=== PATIENT | male | born 1965 | race American Indian/Alaskan Native ===

== ENCOUNTER 2018-05-13 04:04 | Inpatient (IN) | payer OTHER ==
[2018-05-13] MEDS ORDERED: NACL 0.9% 1000 ML 1,000 ML IV ONE (04:11)
[2018-05-13 04:44] LABS: Basophils % (Auto) 0.6 % (0.0-1.8); Eosinophils # (Auto) 0.1 K/mm3 (0.0-0.4); Eosinophils % (Auto) 1.3 % (0.0-4.3); Hematocrit 26.8 % (35.5-45.6); Hemoglobin 9.4 gm/dl (11.8-15.2); Lymphocytes # (Auto) 1.9 K/mm3 (1.2-5.4); Lymphocytes % (Auto) 24.2 % (13.4-35.0); Mean Corpuscular HGB Conc 35 % (32-34); Mean Corpuscular Hemoglobin 30 pg (28-32); Mean Corpuscular Volume 86 fl (84-94); Monocytes # (Auto) 0.7 K/mm3 (0.0-0.8); Monocytes % (Auto) 9.6 % (0.0-7.3); Platelet Count 363 K/mm3 (140-440); Red Blood Count 3.13 M/mm3 (3.65-5.03); Red Cell Distribution Width 13.4 % (13.2-15.2)
[2018-05-13 05:05] LABS: Alanine Aminotransferase 10 units/L (7-56); Albumin 2.8 g/dL (3.9-5); BUN/Creatinine Ratio 5; Blood Urea Nitrogen 72 mg/dL (9-20); Calcium 8.6 mg/dL (8.4-10.2); Hemolysis Index 0
[2018-05-13] MEDS ORDERED: CATAPRES ONE (07:56)
[2018-05-13] MEDS ORDERED: CATAPRES PO ONE (07:57)
[2018-05-13] MEDS ORDERED: KIONEX PO ONE (09:19)
--- NOTE | 2018-05-13 10:30 | Emergency Department Report ---
ED Extremity Problem HPI - General Chief complaint: Abdominal Pain Stated complaint: ABD PAIN/SWELLING LEFT LEG Time Seen by Provider: 05/13/18 09:10 Source: patient Mode of arrival: Ambulatory Limitations: No Limitations - History of Present Illness Initial comments: Patient is a 52-year-old male who has had no previous medical history to his knowledge she was complaining of leg swelling for approximately 2 weeks. Patient states left slightly greater than right. Patient also has had some fatigue nausea and some generalized abdominal crampiness. Patient states that he has not urinated in several days as well. Patient denies any nausea vomiting or diarrhea fevers or chills at this time. Severity scale (0 -10): 10 - Related Data Previous Rx's Medication Instructions Recorded Last Taken Type Ofloxacin 0.3% [Ocuflox] 1 drops OP QID #1 bottle 10/31/16 Unknown Rx Allergies Allergy/AdvReac Type Severity Reaction Status Date / Time No Known Allergies Allergy Verified 10/31/16 11:50 ED Review of Systems ROS: Stated complaint: ABD PAIN/SWELLING LEFT LEG Other details as noted in HPI Comment: All other systems reviewed and negative ED Past Medical Hx - Past Medical History Previous Medical History?: No - Surgical History Past Surgical History?: No - Social History Smoking Status: Current Every Day Smoker Substance Use Type: None - Medications Home Medications: Home Medications Medication Instructions Recorded Confirmed Last Taken Type Ofloxacin 0.3% [Ocuflox] 1 drops OP QID #1 bottle 10/31/16 Unknown Rx ED Physical Exam - General Limitations: No Limitations General appearance: alert, in no apparent distress - Head Head exam: Present: atraumatic, normocephalic - Eye Eye exam: Present: normal appearance - ENT ENT exam: Present: mucous membranes moist - Neck Neck exam: Present: normal inspection - Respiratory Respiratory exam: Present: normal lung sounds bilaterally. Absent: respiratory distress, wheezes, rales, rhonchi - Cardiovascular Cardiovascular Exam: Present: regular rate, normal rhythm. Absent: systolic murmur, diastolic murmur, rubs, gallop - GI/Abdominal GI/Abdominal exam: Present: soft, normal bowel sounds. Absent: distended, tenderness, guarding, rebound - Rectal Rectal exam: Present: deferred - exam: Absent: normal inspection (patient has some generalized edema to the penis and scrotum) - Extremities Exam Extremities exam: Present: other (patient has 2+ edema bilateral lower extremities). Absent: normal inspection - Back Exam Back exam: Present: normal inspection - Neurological Exam Neurological exam: Present: alert, oriented X3 - Psychiatric Psychiatric exam: Present: normal affect, normal mood - Skin Skin exam: Present: warm, dry, intact, normal color. Absent: rash ED Course Vital Signs 05/13/18 05/13/18 04:09 07:32 Temperature 97.8 F 97.7 F Pulse Rate 99 H 91 H Respiratory 16 15 Rate Blood Pressure 198/120 194/128 O2 Sat by Pulse 98 98 Oximetry ED Medical Decision Making - Lab Data Result diagrams: 05/13/18 04:27 05/13/18 04:27 Labs 05/13/18 05/13/18 04:27 04:27 WBC 7.8 RBC 3.13 L Hgb 9.4 L Hct 26.8 L MCV 86 MCH 30 MCHC 35 H RDW 13.4 Plt Count 363 Lymph % (Auto) 24.2 [place] % (Auto) 9.6 H Eos % (Auto) 1.3 Baso % (Auto) 0.6 Lymph # 1.9 [place] # 0.7 Eos # 0.1 Baso # 0.0 Seg Neutrophils % 64.3 Seg Neutrophils # 5.0 Sodium 132 L Potassium 5.5 H Chloride 94.1 L Carbon Dioxide 19 L Anion Gap 24 BUN 72 H Creatinine 14.4 H Estimated GFR 4 BUN/Creatinine Ratio 5 Glucose 94 Calcium 8.6 Total Bilirubin < 0.20 AST 15 ALT 10 Alkaline Phosphatase 80 Total Protein 8.1 Albumin 2.8 L Albumin/Globulin Ratio 0.5 - Medical Decision Making Patient's laboratory studies are significant for elevation of his BUN and creatinine with a GFR 4. Patient has no previous history of renal failure. Patient's potassium slightly elevated 5.5. Patient blood pressure on arrival 194/128. Patient given Catapres to decrease the blood pressure. Patient will be admitted at this time for acute renal failure with elevated blood pressure. Critical Care Time: Yes (30) Critical care attestation.: If time is entered above; I have spent that time in minutes in the direct care of this critically ill patient, excluding procedure time. ED Disposition Clinical Impression: Hypertensive urgency, malignant Acute renal failure Qualifiers: Acute renal failure type: unspecified Qualified Code(s): N17.9 - Acute kidney failure, unspecified Edema Qualifiers: Edema type: unspecified Qualified Code(s): R60.9 - Edema, unspecified Disposition: DC-09 OP ADMIT IP TO THIS HOSP Is pt being admited?: Yes Condition: Poor Referrals: PRIMARY CARE,MD [Primary Care Provider] - 3-5 Days Time of Disposition: 10:36
[2018-05-13] MEDS ORDERED: APRESOLINE IV ONE (10:31)
[2018-05-13] MEDS ORDERED: NORMODYNE IV ONE ×2 (11:25→11:42)
--- NOTE | 2018-05-13 11:54 | History and Physical Report ---
History of Present Illness Date of examination: 05/13/18 Date of admission: 05/13/18 10:36 Chief complaint: Swelling of legs x 1 week. Shortness of breath No urine for 5 days History of present illness: Patient is 52 yo presented with bilateral leg swelling for 1 week, shortness of breath, abdominal cramps and states he has not passed urine in about 5 days. He denies chest pain. Shortness of breath worse on exertion. he does not have a Primary Care Physician, and is not on any medications. He was evaluated in ED, found to have creatinine of 14.4 He is diagnosed with acute kidney injury, hyperkalemia, hypertensive urgency. Patient started on antihypertensives. He was given Insulin and kayexalate for Hyperkalemia and will be admitted for further management. Past History Past Medical History: No medical history Past Surgical History: No surgical history Social history: single, Lives alone, smoking (Smokes 1 pack cigarettes daily), full code, other (Alcohol once to twice a week) Family history: no significant family history Medications and Allergies Allergies Allergy/AdvReac Type Severity Reaction Status Date / Time No Known Allergies Allergy Verified 10/31/16 11:50 Home Medications Medication Instructions Recorded Confirmed Last Taken Type No Known Home Medications [No 05/13/18 05/13/18 Unknown History Reported Home Medications] Review of Systems All systems: negative (No fever, no cough, No headache. All other systems reviewed and are negative) Exam - Physical Exam Narrative exam: GEN:Not in acute distress, HEENT: Normocephalic, atraumatic, Neck: supple, No JVD Lungs:Clear to auscultation bilaterally, no crackles, no wheeze Heart:S1 and S2 reg, no murmurs, rubs or gallop Abd:soft, mild tender lower abd, non-distended, Normal bowel sounds Ext:Bilateral lower ext edema, no cyanosis Neuro:AAO x 3, No focal neurological signs - Constitutional Vitals: Temp Pulse Resp BP Pulse Ox 97.7 F 78 16 185/105 98 05/13/18 07:32 05/13/18 11:31 05/13/18 11:25 05/13/18 11:31 05/13/18 11:25 Results - Labs CBC & Chem 7: 05/13/18 04:27 05/14/18 05:05 Labs: Abnormal lab results 05/13/18 05/13/18 Range/Units 04:27 04:27 RBC 3.13 L (3.65-5.03) M/mm3 Hgb 9.4 L (11.8-15.2) gm/dl Hct 26.8 L (35.5-45.6) % MCHC 35 H (32-34) % [place] % (Auto) 9.6 H (0.0-7.3) % Sodium 132 L (137-145) mmol/L Potassium 5.5 H (3.6-5.0) mmol/L Chloride 94.1 L (98-107) mmol/L Carbon Dioxide 19 L (22-30) mmol/L BUN 72 H (9-20) mg/dL Creatinine 14.4 H (0.8-1.5) mg/dL Albumin 2.8 L (3.9-5) g/dL Assessment and Plan Acute kidney injury. Etiology unclear New diagnosis Admit to Med/surg floor No history of renal disease Consult Nephrology [employer] Get Ultrasound Kidneys, UA, Urine Creat, urine lytes Strict I/O Hypertensive urgency, Start Norvasc and Hydralazine. Hydralazine iv prn Hyperkalemia. Give Insulin, kayexalate and recheck Hyponatremia. Repeat. Metabolic acidosis due to MARYLOU Full code status
[2018-05-13] MEDS ORDERED: NORVASC PO SCH (12:00)
[2018-05-13] MEDS ORDERED: HumuLIN R IV ONE (12:00)
[2018-05-13] MEDS ORDERED: D50W (25GM) Vial IV STA (12:00)
--- NOTE | 2018-05-13 13:09 | Consultation ---
History of Present Illness - Reason for Consult Consult date: 05/13/18 acute renal failure, hyperkalemia - History of Present Illness The patient is a 52 YO AAM with medical history significant for Uncontrolled HTN who came to the ER for evaluation of bilateral leg swelling, SOB and no urine output. He developed lower abdominal pain about 3 weeks ago, which was sharp, intermittent and not radiating. He noticed bilateral leg swelling about a week ago. He stopped making urine for the past 5 days. Patient also reports fatigue and RIVERA. Usually he takes Aleve every other day but he has been taking it everyday for the past week. Denies any fever, chills, rash, dysuria, hematuria, abdominal distention, N, V, D, dizziness, cp, cough, jaundice, weakness, muscle cramps, syncope or confusion. His creatinine is 14.4, K 5.5 and bicarb 19. He was seen in the ER last year and his BP was around 170/110. He is not taking any meds on a regular basis and has not seen a physician except ER visit last year. Past History Past Medical History: No medical history, hypertension Past Surgical History: No surgical history Social history: single, Lives alone, smoking (Smokes 1 pack cigarettes daily), full code, other (Alcohol once to twice a week) Family history: no significant family history Medications and Allergies Allergies Allergy/AdvReac Type Severity Reaction Status Date / Time No Known Allergies Allergy Verified 10/31/16 11:50 Home Medications Medication Instructions Recorded Confirmed Last Taken Type No Known Home Medications [No 05/13/18 05/13/18 Unknown History Reported Home Medications] Active Meds: Active Medications Amlodipine Besylate (Norvasc) 5 mg PO QDAY [facility] Last Admin: 05/13/18 12:54 Dose: 5 mg Hydralazine HCl (Apresoline) 50 mg PO Q8HR [facility] Hydralazine HCl (Apresoline) 20 mg IV Q4HR PRN PRN Reason: For SBP>170 or DBP>110 Review of Systems Constitutional: weight gain, fatigue, no weight loss, no fever, no chills, no anorexia, no weakness, no poor appetite Cardiovascular: edema, shortness of breath, dyspnea on exertion, high blood pressure, leg edema, decreased exercise tolerance, no chest pain, no orthopnea, no palpitations, no syncope, no lightheadedness Respiratory: shortness of breath, dyspnea on exertion, no cough, no hemoptysis Gastrointestinal: abdominal pain, no nausea, no vomiting, no diarrhea, no melena Genitourinary Male: other (not urinating), no dysuria, no hematuria Rectal: no bleeding Musculoskeletal: no low back pain, no hot joints, no morning stiffness, no muscle weakness Integumentary: no rash, no redness, no sores, no wounds, no jaundice Neurological: no weakness, no seizures, no syncope, no headaches, no convulsions , no aphasia, no change in speech, no change in mentation, no double vision, no loss of vision Endocrine: weight change Exam - Vital Signs Vital signs: Vital Signs Temp Pulse Resp BP Pulse Ox 97.8 F 99 H 16 198/120 98 05/13/18 04:09 05/13/18 04:09 05/13/18 04:09 05/13/18 04:09 05/13/18 04:09 - General Appearance General appearance: well-developed, well-nourished, appears stated age, other ( not in distress) EENT: ATNC, PERRL, mucous membranes dry, hearing intact, vision intact Neck: Present: neck supple, trachea midline Respiratory: Clear to Ascultation Heart: regular, S1S2, no murmurs Gastrointestinal: Present: normoactive bowel sounds. Absent: tenderness Integumentary: no rash, warm and dry Neurologic: no focal deficit, no asterixis, alert and oriented x3 Musculoskeletal: Present: other (blateral tarce LE edema noted) Psychiatric: cooperative Results - Lab Results 05/13/18 04:27 05/13/18 04:27 Most recent lab results Calcium 8.6 mg/dL (8.4-10.2) 05/13/18 04:27 - Image Kidney/bladder ultrasound: pending Assessment and Plan 1. Acute kidney injury: Acute kidney injury vs advanced CKD. Untreated HTN for several years. Urine studies and Renal US. Gentle IV fluids to treat any acute component. Will also order ZEUS, ANCA and complements. May need kidney biopsy. 2. Hyperkalemia: Kayexalate. Follow potassium level. 3. Electrolytes: Monitor. 4. Uncontrolled HTN: Continue Amlodipine and Hydralazine. 5. Anemia: Iron studies.
[2018-05-13] MEDS: APRESOLINE PO SCH ×3 (13:51→22:00)
--- NOTE | 2018-05-13 13:58 | Ultrasound Report ---
Renal sonogram: History: Acute renal failure. Findings: Right kidney 14.1 x 6.1 x 7.5 cm. Cortical thickness 2.8 cm. Left kidney 13.2 x 7.1 x 6 cm. Cortical thickness 2.2 cm. There is noted bilateral hydronephrosis. Partly decompressed urinary bladder. Internal echoes are identified within the bladder without a specific mass. Impression: Bilateral hydronephrosis. Recommend cystogram for evaluation of bladder.
--- NOTE | 2018-05-13 19:23 | Event Note ---
Date: 05/13/18 Renal US showed bilateral hydronephrosis. Shrestha order placed and informed the nurse.
[2018-05-13 19:53] LABS: Bilirubin,Urine NEG (Negative); Blood,Urine SM (Negative); Color,Urine Straw (Yellow); Mucus,Urine FEW /HPF; Protein,Urine <15 mg/dL mg/dL (Negative); Urobilinogen,Urine < 2.0 mg/dL (<2.0)
[2018-05-13 19:57] LABS: Amphetamine Screen,Urine PRESUMPTIVE NEGATIVE; Benzodiazepines Screen,Urine PRESUMPTIVE NEGATIVE; Cannabinoid Screen,Urine PRESUMPTIVE NEGATIVE; Chloride, Urine 27.8 mmolL (110-250); Cocaine Screen,Urine PRESUMPTIVE NEGATIVE; Methadone Screen,Urine PRESUMPTIVE NEGATIVE; Opiate Screen,Urine PRESUMPTIVE NEGATIVE; Potassium, Urine 8.69 mmol/L
[2018-05-13 20:45] LABS: Calcium 8.2 mg/dL (8.4-10.2)
[2018-05-14] MEDS: APRESOLINE PO SCH ×3 (06:08→22:11)
[2018-05-14 08:17] LABS: Calcium 7.9 mg/dL (8.4-10.2)
[2018-05-14] MEDS ORDERED: CALCIUM GLUCONATE 1,000 MG in NACL 0.9% 100 ML IV ONE (08:35)
[2018-05-14] MEDS ORDERED: HumuLIN R IV ONE (08:37)
[2018-05-14] MEDS ORDERED: D50W (25GM) Vial IV ONE ×2 (08:37→09:45)
[2018-05-14] MEDS ORDERED: KIONEX PO SCH (09:00)
[2018-05-14] MEDS: KIONEX PO SCH ×2 (09:21→14:49)
[2018-05-14] MEDS: NORVASC PO SCH (09:30)
[2018-05-14] MEDS: D5NS 1,000 ML IV SCH (09:35)
[2018-05-14] MEDS ORDERED: D50W (25GM) Syringe IV ONE (10:00)
--- NOTE | 2018-05-14 11:12 | Progress Note ---
Assessment and Plan 1. Acute kidney injury: Acute kidney injury in the setting of bilateral hydronephrosis secondary to pelvic mass. IR was consulted for bilateral nephrostomy placement. 2. Hyperkalemia: Kayexalate. Follow potassium level. 3. Bilateral hydronephrosis. 4. Uncontrolled HTN: Continue Amlodipine and Hydralazine. 5. Anemia. Subjective Date of service: 05/14/18 Interval history: Patient is doing ok. Objective - Vital Signs Vital signs: Vital Signs - 12hr 05/13/18 05/14/18 05/14/18 23:39 05:20 06:08 Temperature 97.5 F L 98.8 F Pulse Rate 88 85 85 Respiratory 20 22 Rate Blood Pressure 163/103 161/104 161/104 O2 Sat by Pulse 96 98 Oximetry - General Appearance General appearance: well-developed, well-nourished, appears stated age, other ( not in distress) EENT: ATNC, PERRL, mucous membranes moist, hearing intact, vision intact Neck: supple Respiratory: Present: Clear to Ascultation Cardiology: regular, S1S2, no murmurs Gastrointestinal: normoactive bowel sounds, no tenderness Integumentary: no rash, warm and dry Neurologic: no focal deficit, no asterixis, alert and oriented x3 Musculoskeletal: other (no edema) Psychiatric: mood/affect appropriate, cooperative - Lab 05/13/18 04:27 05/14/18 05:05 Most recent lab results Calcium 7.9 mg/dL (8.4-10.2) L 05/14/18 05:05 Phosphorus 6.30 mg/dL (2.5-4.5) H 05/14/18 05:05 Urine Creatinine 66.0 mg/dL (0.1-20.0) H 05/13/18 19:39 Urine Sodium 60 mmol/L 05/13/18 19:39 Urine Total Protein 24 mg/dL (5-11.8) H 05/13/18 19:39
--- NOTE | 2018-05-14 11:19 | Cat Scan Report ---
FINAL REPORT EXAM: CT ABDOMEN PELVIS WO CON HISTORY: Bilateral hydronephrosis COMPARISON: Renal ultrasound performed on 05/13/2018. TECHNIQUE: Multiple contiguous axial images were obtained from the lung bases to the pubic symphysis without administration of IV contrast. Reformatted sagittal and coronal images were available for review. FINDINGS: Lung bases: Small left pleural effusion with associated atelectasis at the left lung base. Visualized heart and mediastinum: Normal noncontrast appearance. Liver: Normal noncontrast appearance. Spleen: Normal noncontrast appearance. Single calcified granuloma. Pancreas: Normal noncontrast appearance. Gallbladder and Biliary Tree: The gallbladder is contracted. No calcified gallstones. No biliary ductal dilatation. Adrenal glands: Normal. Kidneys: Bilateral hydronephrosis. Bilateral hydroureters. No renal or ureteral calculi. Bladder: Shrestha catheter within a decompressed bladder. Pelvic organs: Normal. Bowel: No focal wall thickening. No evidence of obstruction. The appendix is normal. Peritoneum: There is a large necrotic lesion posterior to the bladder and anterior to the rectum measuring approximately 8.5 x 10.8 x 8.1 centimeters. This mass, along with surrounding lymphadenopathy appears to compress the distal ureters. Multiple additional nodular densities along the bilateral pelvic palencia, for example along the right pelvic wall, there is a 3 x 3.8 x 3.5 centimeter nodular density with central necrosis. On the left, there is a 3.3 x 3.3 x 5.6 centimeter nodular density. There are smaller lymph nodes around the periaortic region measuring up to 1.2 centimeters (series 2, image 83). There are also enlarged lymph nodes along the bilateral iliac chains and bilateral inguinal areas measuring up to 1.2 centimeters. There is trace perihepatic free fluid. Vasculature: Abdominal aorta is normal in caliber without evidence of aneurysm. Scattered atherosclerotic calcifications. Normal noncontrast appearance of the portal venous system and the inferior vena cava. Bones and soft tissues: No suspicious osseous lesions. No acute fracture or dislocation. There is edema of the soft tissues. IMPRESSION: 1. Large necrotic mass posterior to the bladder and anterior to the rectum measuring approximately 8.5 x 10.8 x 8.1 centimeters. Recommend metastatic workup. Recommend follow-up imaging with contrast enhancement for improved visualization. 2. Enlarged bilateral pelvic sidewall nodes, periaortic, and iliac chain nodes. Enlarged inguinal nodes. Findings are suspicious for metastatic disease. Recommend follow-up imaging with contrast enhanced CT for more complete evaluation of extent of disease. 3. Small amount of ascites, which may be malignant. 4. Bilateral hydronephrosis and hydroureter, likely secondary to compression from the pelvic mass and associated lymphadenopathy. 5. Small left pleural effusion with associated atelectasis.
--- NOTE | 2018-05-14 13:02 | Progress Note ---
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 Discussed with Dr. Bunch. he will discuss with Urology Hypertensive urgency, Start Norvasc and Hydralazine. Hydralazine iv prn Hyperkalemia, worse today Give more Insulin, kayexalate and recheck Hyponatremia. Repeat. Metabolic acidosis due to MARYLOU Full code status History Interval history: Shrestha placed yesterday, Leg swelling Mild low abd pain Hospitalist Physical - Physical exam Narrative exam: GEN:Not in acute distress, HEENT: Normocephalic, atraumatic, Neck: supple, No JVD Lungs:Clear to auscultation bilaterally, no crackles, no wheeze Heart:S1 and S2 reg, no murmurs, rubs or gallop Abd:soft, mild tender lower abd, suprabubic, non-distended, Normal bowel sounds Ext:Bilateral lower ext edema, no cyanosis Neuro:AAO x 3, No focal neurological signs - Constitutional Vitals: Temp Pulse Resp BP Pulse Ox 98.3 F 113 H 19 169/91 97 05/14/18 11:54 05/14/18 11:54 05/14/18 11:54 05/14/18 11:54 05/14/18 11:54 Results - Labs CBC & Chem 7: 05/13/18 04:27 05/14/18 14:13 Labs: Laboratory Last Values WBC 7.8 K/mm3 (4.5-11.0) 05/13/18 04:27 RBC 3.13 M/mm3 (3.65-5.03) L 05/13/18 04:27 Hgb 9.4 gm/dl (11.8-15.2) L 05/13/18 04:27 Hct 26.8 % (35.5-45.6) L 05/13/18 04:27 MCV 86 fl (84-94) 05/13/18 04:27 MCH 30 pg (28-32) 05/13/18 04:27 MCHC 35 % (32-34) H 05/13/18 04:27 RDW 13.4 % (13.2-15.2) 05/13/18 04:27 Plt Count 363 K/mm3 (140-440) 05/13/18 04:27 Lymph % (Auto) 24.2 % (13.4-35.0) 05/13/18 04:27 [place] % (Auto) 9.6 % (0.0-7.3) H 05/13/18 04:27 Eos % (Auto) 1.3 % (0.0-4.3) 05/13/18 04:27 Baso % (Auto) 0.6 % (0.0-1.8) 05/13/18 04:27 Lymph # 1.9 K/mm3 (1.2-5.4) 05/13/18 04:27 [place] # 0.7 K/mm3 (0.0-0.8) 05/13/18 04:27 Eos # 0.1 K/mm3 (0.0-0.4) 05/13/18 04:27 Baso # 0.0 K/mm3 (0.0-0.1) 05/13/18 04:27 Seg Neutrophils % 64.3 % (40.0-70.0) 05/13/18 04:27 Seg Neutrophils # 5.0 K/mm3 (1.8-7.7) 05/13/18 04:27 Sodium 131 mmol/L (137-145) L 05/14/18 05:05 Potassium 5.8 mmol/L (3.6-5.0) H 05/14/18 05:05 Chloride 95.6 mmol/L (98-107) L 05/14/18 05:05 Carbon Dioxide 20 mmol/L (22-30) L 05/14/18 05:05 Anion Gap 21 mmol/L 05/14/18 05:05 BUN 81 mg/dL (9-20) H 05/14/18 05:05 Creatinine 16.6 mg/dL (0.8-1.5) H 05/14/18 05:05 Estimated GFR 4 ml/min 05/14/18 05:05 BUN/Creatinine Ratio 5 % 05/14/18 05:05 Glucose 127 mg/dL (75-100) H 05/14/18 05:05 POC Glucose 127 (70-105) H 05/14/18 09:28 Hemoglobin A1c 5.7 % (4-6) 05/14/18 05:05 Calcium 7.9 mg/dL (8.4-10.2) L 05/14/18 05:05 Phosphorus 6.30 mg/dL (2.5-4.5) H 05/14/18 05:05 Total Bilirubin < 0.20 mg/dL (0.1-1.2) 05/13/18 04:27 AST 15 units/L (5-40) 05/13/18 04:27 ALT 10 units/L (7-56) 05/13/18 04:27 Alkaline Phosphatase 80 units/L (35-129) 05/13/18 04:27 Total Creatine Kinase 236 units/L (55-170) H 05/14/18 05:05 Total Protein 8.1 g/dL (6.3-8.2) 05/13/18 04:27 Albumin 2.8 g/dL (3.9-5) L 05/13/18 04:27 Albumin/Globulin Ratio 0.5 % 05/13/18 04:27 TSH 3.180 mlU/mL (0.270-4.200) 05/14/18 05:05 PTH Intact 65.37 pg/mL (15-65) H 05/14/18 05:05 Urine Color Straw (Yellow) 05/13/18 19:39 Urine Turbidity Slightly-cloudy (Clear) 05/13/18 19:39 Urine pH 6.0 (5.0-7.0) 05/13/18 19:39 Ur Specific [place] 1.006 (1.003-1.030) 05/13/18 19:39 Urine Protein <15 mg/dl mg/dL (Negative) 05/13/18 19:39 Urine Glucose (UA) Neg mg/dL (Negative) 05/13/18 19:39 Urine Ketones Neg mg/dL (Negative) 05/13/18 19:39 Urine Blood Sm (Negative) 05/13/18 19:39 Urine Nitrite Neg (Negative) 05/13/18 19:39 Urine Bilirubin Neg (Negative) 05/13/18 19:39 Urine Urobilinogen < 2.0 mg/dL (<2.0) 05/13/18 19:39 Ur Leukocyte Esterase Tr (Negative) 05/13/18 19:39 Urine WBC (Auto) 4.0 /HPF (0.0-6.0) 05/13/18 19:39 Urine RBC (Auto) 3.0 /HPF (0.0-6.0) 05/13/18 19:39 Urine WBC Clumps Few /HPF 05/13/18 19:39 Urine Mucus Few /HPF 05/13/18 19:39 Urine Creatinine 66.0 mg/dL (0.1-20.0) H 05/13/18 19:39 Urine Sodium 60 mmol/L 05/13/18 19:39 Urine Potassium 8.69 mmol/L 05/13/18 19:39 Urine Chloride 27.8 mmolL (110-250) L 05/13/18 19:39 Urine Total Protein 24 mg/dL (5-11.8) H 05/13/18 19:39 Urine Opiates Screen Presumptive negative 05/13/18 19:39 Urine Methadone Screen Presumptive negative 05/13/18 19:39 Ur Barbiturates Screen Presumptive negative 05/13/18 19:39 Ur Phencyclidine Scrn Presumptive negative 05/13/18 19:39 Ur Amphetamines Screen Presumptive negative 05/13/18 19:39 U Benzodiazepines Scrn Presumptive negative 05/13/18 19:39 Urine Cocaine Screen Presumptive negative 05/13/18 19:39 U Marijuana (THC) Screen Presumptive negative 05/13/18 19:39 Drugs of Abuse Note Disclamer 05/13/18 19:39
[2018-05-14 13:58] LABS: INR 1.06 (0.87-1.13)
[2018-05-14 13:59] LABS: Partial Thromboplastin Time 38.2 Sec. (24.2-36.6)
--- NOTE | 2018-05-14 14:44 | Consultation ---
History of Present Illness - Reason for Consult Consult date: 05/14/18 Bilateral hydronephrosis - History of Present Illness 52 year old -Central African male with medical history significant for Uncontrolled HTN who came to the ER for evaluation of bilateral leg swelling, SOB and no urine output. He developed lower abdominal pain about 3 weeks ago, which was sharp, intermittent and not radiating. He noticed bilateral leg swelling about a week ago. He stopped making urine for the past 5 days. Patient also reports fatigue and RIVERA. CT scan was reviewed demonstrating a large pelvic mass with bilateral hydronephrosis. Shrestha has been in place for about 24 hours with minimal output. Past History Past Medical History: No medical history Past Surgical History: No surgical history Social history: single, Lives alone, smoking (Smokes 1 pack cigarettes daily), full code, other (Alcohol once to twice a week) Family history: no significant family history Medications and Allergies Allergies Allergy/AdvReac Type Severity Reaction Status Date / Time No Known Allergies Allergy Verified 10/31/16 11:50 Home Medications Medication Instructions Recorded Confirmed Last Taken Type No Known Home Medications [No 05/13/18 05/13/18 Unknown History Reported Home Medications] Active Meds: Active Medications Amlodipine Besylate (Norvasc) 10 mg PO QDAY [facility] Last Admin: 05/14/18 09:30 Dose: 10 mg Hydralazine HCl (Apresoline) 20 mg IV Q4HR PRN PRN Reason: For SBP>170 or DBP>110 Hydralazine HCl (Apresoline) 100 mg PO Q8HR JAC Dextrose/Sodium Chloride (D5ns) 1,000 mls @ 75 mls/hr IV DIRECT JAC Last Admin: 05/14/18 09:35 Dose: 75 mls/hr Sodium Polystyrene Sulfonate (Kionex) 30 gm PO Q6H JAC Stop: 05/14/18 15:01 Last Admin: 05/14/18 09:21 Dose: 30 gm Review of Systems All systems: negative (see HPI) Exam - Constitutional Vitals: Temp Pulse Resp BP Pulse Ox 98.3 F 113 H 19 169/91 97 05/14/18 11:54 05/14/18 11:54 05/14/18 11:54 05/14/18 11:54 05/14/18 11:54 General appearance: Present: mild distress - EENT Eyes: Present: EOM intact ENT: hearing intact - Respiratory Respiratory effort: normal - Extremities Extremities: normal temperature, normal color - Abdominal General gastrointestinal: Present: tender (back and pelvic pain) - Psychiatric Psychiatric: appropriate mood/affect, cooperative Results - Labs CBC & Chem 7: 05/13/18 04:27 05/14/18 14:13 Labs: Abnormal lab results 05/13/18 05/13/18 05/14/18 Range/Units 19:39 20:00 05:05 APTT (24.2-36.6) Sec. Sodium 132 L 131 L (137-145) mmol/L Potassium 5.2 H 5.8 H (3.6-5.0) mmol/L Chloride 93.0 L 95.6 L (98-107) mmol/L Carbon Dioxide 19 L 20 L (22-30) mmol/L BUN 74 H 81 H (9-20) mg/dL Creatinine 15.0 H 16.6 H (0.8-1.5) mg/dL Glucose 134 H 127 H (75-100) mg/dL POC Glucose (70-105) Calcium 8.2 L 7.9 L (8.4-10.2) mg/dL Phosphorus 6.30 H (2.5-4.5) mg/dL Total Creatine Kinase 236 H (55-170) units/L PTH Intact (15-65) pg/mL Urine Creatinine 66.0 H (0.1-20.0) mg/dL Urine Chloride 27.8 L (110-250) mmolL Urine Total Protein 24 H (5-11.8) mg/dL 05/14/18 05/14/18 05/14/18 Range/Units 05:05 09:28 10:56 APTT (24.2-36.6) Sec. Sodium (137-145) mmol/L Potassium (3.6-5.0) mmol/L Chloride (98-107) mmol/L Carbon Dioxide (22-30) mmol/L BUN (9-20) mg/dL Creatinine (0.8-1.5) mg/dL Glucose (75-100) mg/dL POC Glucose 127 H 126 H (70-105) Calcium (8.4-10.2) mg/dL Phosphorus (2.5-4.5) mg/dL Total Creatine Kinase (55-170) units/L PTH Intact 65.37 H (15-65) pg/mL Urine Creatinine (0.1-20.0) mg/dL Urine Chloride (110-250) mmolL Urine Total Protein (5-11.8) mg/dL 05/14/18 Range/Units 13:29 APTT 38.2 H (24.2-36.6) Sec. Sodium (137-145) mmol/L Potassium (3.6-5.0) mmol/L Chloride (98-107) mmol/L Carbon Dioxide (22-30) mmol/L BUN (9-20) mg/dL Creatinine (0.8-1.5) mg/dL Glucose (75-100) mg/dL POC Glucose (70-105) Calcium (8.4-10.2) mg/dL Phosphorus (2.5-4.5) mg/dL Total Creatine Kinase (55-170) units/L PTH Intact (15-65) pg/mL Urine Creatinine (0.1-20.0) mg/dL Urine Chloride (110-250) mmolL Urine Total Protein (5-11.8) mg/dL - Imaging and Cardiology CT scan - abdomen: report reviewed, image reviewed Assessment and Plan 52-year-old male with large pelvic mass with resultant hydronephrosis and acute renal failure refractory to Shrestha placement with minimal output. Discussed case with Dr. Luna and Dr. Bunch. Risks, benefits, and alternatives discussed with the patient. Hematuria is common after this procedure. Plan for bilateral nephrostomy tube placement.
[2018-05-14] MEDS ORDERED: NACL 0.9% 500 ML IR ONE ×2 (15:43→17:08)
[2018-05-14] MEDS ORDERED: NACL 0.9% 250ML 0 ML ONE (15:44)
[2018-05-14] MEDS ORDERED: LEVAQUIN 500MG/100ML 500 MG/100 ML BAG IV ONE (15:44)
[2018-05-14] MEDS: SUBLIMAZE ONE ×2 (16:08→16:47)
[2018-05-14] MEDS: VERSED ONE ×2 (16:08→16:47)
[2018-05-14] MEDS: XYLOCAINE 2% INFILTRATI ONE ×2 (16:12→16:27)
--- NOTE | 2018-05-14 17:48 | Operative Report ---
Operative Report Operative Report: EXAM: 1. Ultrasound-guided access of the left lower pole posterior calyx. 2. Left-sided nephrostogram. 3. Percutaneous 8 Samoan nephrostomy tube placement in the left kidney 4. Attempted ultrasound-guided access of the right lower pole posterior calyx 5. Ultrasound-guided access of the right upper pole posterior calyx 6. Right-sided nephrostogram 7. Percutaneous 8 Samoan nephrostomy tube placement in the right kidney DATE: 05/14/18 CONFERENCE PLANNER: BENTLEY STARR MD INDICATION: Bilateral hydronephrosis with pelvic mass. MEDICATIONS: Please see nursing report for full details. DEVICES: Bilateral 8 Samoan nephrostomy tube CONTRAST: 30 mL of nonionic contrast injected into the collecting system PROCEDURE: The risks, benefits, and alternatives were discussed with the patient; informed consent was obtained. The patient was prepped and draped in a sterile fashion in the prone position. Both flanks were evaluated with ultrasound. Left side: Under direct ultrasound guidance, the left lower pole posterior calyx was punctured with a 21-gauge echo tipped needle. Urine was aspirated. 0.018 inch wire was inserted through the needle into the collecting system. Needle was exchanged for a 6 Samoan transitional dilator Accustick system. After the dilator was advanced over the wire, the wire, inner metal cannula and inner dilator were removed. Contrast was injected confirming position within the collecting system. 0.035 inch wire was advanced through the transitional dilator. Transitional dilator was exchanged for an 8 Samoan dilator. 8 Samoan nephrostomy tube was then advanced over the wire. Wire was removed. The nephrostomy tube was positioned in the renal pelvis and the cope loop was successfully deployed. The nephrostomy tube was secured with 2-0 Ethilon. Right side: Under direct ultrasound guidance, the right lower pole posterior calyx was punctured with a 21-gauge echo tipped needle. Urine was aspirated. Despite appropriate puncture, 0.018 inch wire did not pass into the collecting system. This was attempted 2 times, and then I decided to obtain upper pole access because that calyx was larger. Under direct ultrasound guidance, the right upper pole posterior calyx was punctured with a 21-gauge echo tipped needle. Urine was aspirated. 0.018 inch wire was passed into the ureter. Contrast was injected documenting the collecting system. Needle was exchanged for a 6 Samoan transitional dilator Accustick system. After the dilator was advanced over the wire, the wire, inner metal cannula and inner dilator were removed. Contrast was injected confirming position within the collecting system. 0.035 inch wire was advanced through the transitional dilator. Transitional dilator was exchanged for an 8 Samoan dilator. 8 Samoan nephrostomy tube was then advanced over the wire. Wire was removed. The nephrostomy tube was positioned in the renal pelvis and the cope loop was successfully deployed. There is a moderate amount of bleeding and therefore the tube was capped for approximately 15 minutes. Afterwards, flush was injected and minimal residual hematuria was noted. DDAVP was ordered. Patient tolerated the procedure well and was transferred out of the angiography suite in stable condition. FINDINGS: Moderate left-sided hydronephrosis with hydroureter and complete occlusion of the distal ureter at the ureterovesical junction. Mild to moderate right-sided hydronephrosis with hydroureter and complete occlusion of the distal ureter at the ureterovesicular junction. IMPRESSION: Nephrostograms and antegrade ureterogram of the bilateral collecting system demonstrates complete distal occlusion of the ureters with bilateral hydronephrosis and hydroureter. Successful nephrostomy tube placement in the right and left collecting system.
[2018-05-14] MEDS ORDERED: DDAVP 30 MCG in NACL 0.9% 50 ML IV ONE (18:00)
[2018-05-15] MEDS: MORPHINE IV PRN ×3 (03:05→18:28)
[2018-05-15] MEDS: D5NS 1,000 ML IV SCH ×2 (03:28→18:29)
[2018-05-15] MEDS: APRESOLINE PO SCH ×3 (06:21→21:17)
[2018-05-15 08:51] LABS: Basophils % (Auto) 0.3 % (0.0-1.8); Eosinophils % (Auto) 0.4 % (0.0-4.3); Hematocrit 24.2 % (35.5-45.6); Hemoglobin 8.5 gm/dl (11.8-15.2); Lymphocytes # (Auto) 1.1 K/mm3 (1.2-5.4); Lymphocytes % (Auto) 16.3 % (13.4-35.0); Mean Corpuscular HGB Conc 35 % (32-34); Mean Corpuscular Hemoglobin 30 pg (28-32); Mean Corpuscular Volume 85 fl (84-94); Monocytes # (Auto) 0.7 K/mm3 (0.0-0.8); Monocytes % (Auto) 10.4 % (0.0-7.3); Platelet Count 270 K/mm3 (140-440); Red Blood Count 2.84 M/mm3 (3.65-5.03); Red Cell Distribution Width 13.3 % (13.2-15.2)
[2018-05-15 09:04] LABS: Calcium 8.1 mg/dL (8.4-10.2)
--- NOTE | 2018-05-15 10:00 | Progress Note ---
Assessment and Plan 1. Acute kidney injury: Acute kidney injury in the setting of bilateral hydronephrosis secondary to pelvic mass. s/p bilateral nephrostomy. Renal function is better. Monitor. 2. Hyperkalemia: Improved. Follow potassium level. 3. Bilateral hydronephrosis: S/p bilateral nephrostomy. 4. Uncontrolled HTN: Continue Amlodipine and Hydralazine. Add Metoprolol. 5. Anemia: Iron studies, Folate and B12 ordered. Subjective Date of service: 05/15/18 Interval history: Patient is doing ok. Objective - Vital Signs Vital signs: Vital Signs - 12hr 05/14/18 05/15/18 22:49 06:05 Temperature 98.6 F 100.2 F H Pulse Rate 107 H 107 H Respiratory 18 17 Rate Blood Pressure 167/107 168/108 O2 Sat by Pulse 95 92 Oximetry - General Appearance General appearance: well-developed, appears stated age, other (not in distress) EENT: ATNC, PERRL, mucous membranes moist, hearing intact, vision intact Neck: supple Respiratory: Present: Clear to Ascultation Cardiology: regular, S1S2, no murmurs Gastrointestinal: normoactive bowel sounds, no tenderness, other (Shrestha catheter noted, bilateral nephrostomy noted) Integumentary: no rash Neurologic: no focal deficit, no asterixis, alert and oriented x3 Musculoskeletal: other (no edema) - Lab 05/15/18 08:06 05/15/18 08:06 Most recent lab results Calcium 8.1 mg/dL (8.4-10.2) L 05/15/18 08:06 Phosphorus 6.30 mg/dL (2.5-4.5) H 05/14/18 05:05 Urine Creatinine 66.0 mg/dL (0.1-20.0) H 05/13/18 19:39 Urine Sodium 60 mmol/L 05/13/18 19:39 Urine Total Protein 24 mg/dL (5-11.8) H 05/13/18 19:39
[2018-05-15] MEDS: NORVASC PO SCH (11:09)
--- NOTE | 2018-05-15 13:32 | Progress Note ---
Assessment and Plan Assessment and plan: Acute kidney injury due to pelvic mass New diagnosis No history of renal disease Nephrology following. discussed with Dr. Bunch on 05/14 Ultrasound Kidneys showed bilat hydronephrosis CT Abd shows Pelvic mass with large LN Had bilateral nephrostomy tubes placed yesterday, 05/14/[address] Freeman. Large pelvic mass between bladder and rectum with large lyph nodes, likely malignant. Hypertensive urgency, Add Metoprolol to Norvasc and Hydralazine. Hyperkalemia, now resolved after Insulin, Kayexalate Hyponatremia. Repeat. Metabolic acidosis due to MARYLOU Fever. Obtain blood cultures Full code status History Interval history: Bilateral nephrostomy tubes placed yesterday Leg swelling Mild low abd pain Hospitalist Physical - Physical exam Narrative exam: GEN:Not in acute distress, HEENT: Normocephalic, atraumatic, Neck: supple, No JVD Lungs:Clear to auscultation bilaterally, no crackles, no wheeze Heart:S1 and S2 reg, no murmurs, rubs or gallop Abd:soft, mild tender lower abd, suprabubic, non-distended, Normal bowel sounds , bilateral nephrostomy tubes draining Ext:Bilateral lower ext edema, no cyanosis Neuro:AAO x 3, No focal neurological signs - Constitutional Vitals: Temp Pulse Resp BP Pulse Ox 99.1 F 103 H 18 159/100 95 05/15/18 12:02 05/15/18 12:02 05/15/18 12:02 05/15/18 12:02 05/15/18 12:02 General appearance: Present: mild distress Results - Labs CBC & Chem 7: 05/15/18 08:06 05/15/18 08:06 Labs: Laboratory Last Values WBC 7.0 K/mm3 (4.5-11.0) 05/15/18 08:06 RBC 2.84 M/mm3 (3.65-5.03) L 05/15/18 08:06 Hgb 8.5 gm/dl (11.8-15.2) L 05/15/18 08:06 Hct 24.2 % (35.5-45.6) L 05/15/18 08:06 MCV 85 fl (84-94) 05/15/18 08:06 MCH 30 pg (28-32) 05/15/18 08:06 MCHC 35 % (32-34) H 05/15/18 08:06 RDW 13.3 % (13.2-15.2) 05/15/18 08:06 Plt Count 270 K/mm3 (140-440) 05/15/18 08:06 Lymph % (Auto) 16.3 % (13.4-35.0) 05/15/18 08:06 [place] % (Auto) 10.4 % (0.0-7.3) H 05/15/18 08:06 Eos % (Auto) 0.4 % (0.0-4.3) 05/15/18 08:06 Baso % (Auto) 0.3 % (0.0-1.8) 05/15/18 08:06 Lymph # 1.1 K/mm3 (1.2-5.4) L 05/15/18 08:06 [place] # 0.7 K/mm3 (0.0-0.8) 05/15/18 08:06 Eos # 0.0 K/mm3 (0.0-0.4) 05/15/18 08:06 Baso # 0.0 K/mm3 (0.0-0.1) 05/15/18 08:06 Seg Neutrophils % 72.6 % (40.0-70.0) H 05/15/18 08:06 Seg Neutrophils # 5.1 K/mm3 (1.8-7.7) 05/15/18 08:06 PT 14.3 Sec. (12.2-14.9) 05/14/18 13:29 INR 1.06 (0.87-1.13) 05/14/18 13:29 APTT 38.2 Sec. (24.2-36.6) H 05/14/18 13:29 Sodium 138 mmol/L (137-145) D 05/15/18 08:06 Potassium 4.7 mmol/L (3.6-5.0) 05/15/18 08:06 Chloride 103.8 mmol/L (98-107) 05/15/18 08:06 Carbon Dioxide 19 mmol/L (22-30) L 05/15/18 08:06 Anion Gap 20 mmol/L 05/15/18 08:06 BUN 66 mg/dL (9-20) H 05/15/18 08:06 Creatinine 12.0 mg/dL (0.8-1.5) H 05/15/18 08:06 Estimated GFR 5 ml/min 05/15/18 08:06 BUN/Creatinine Ratio 6 % 05/15/18 08:06 Glucose 115 mg/dL (75-100) H 05/15/18 08:06 POC Glucose 126 (70-105) H 05/14/18 10:56 Hemoglobin A1c 5.7 % (4-6) 05/14/18 05:05 Calcium 8.1 mg/dL (8.4-10.2) L 05/15/18 08:06 Phosphorus 6.30 mg/dL (2.5-4.5) H 05/14/18 05:05 Total Bilirubin < 0.20 mg/dL (0.1-1.2) 05/13/18 04:27 AST 15 units/L (5-40) 05/13/18 04:27 ALT 10 units/L (7-56) 05/13/18 04:27 Alkaline Phosphatase 80 units/L (35-129) 05/13/18 04:27 Total Creatine Kinase 236 units/L (55-170) H 05/14/18 05:05 Total Protein 8.1 g/dL (6.3-8.2) 05/13/18 04:27 Albumin 2.8 g/dL (3.9-5) L 05/13/18 04:27 Albumin/Globulin Ratio 0.5 % 05/13/18 04:27 Prostate Specific Ag 0.96 ng/mL (0.00-4.00) 05/14/18 13:29 TSH 3.180 mlU/mL (0.270-4.200) 05/14/18 05:05 PTH Intact 65.37 pg/mL (15-65) H 05/14/18 05:05 Urine Color Straw (Yellow) 05/13/18 19:39 Urine Turbidity Slightly-cloudy (Clear) 05/13/18 19:39 Urine pH 6.0 (5.0-7.0) 05/13/18 19:39 Ur Specific [place] 1.006 (1.003-1.030) 05/13/18 19:39 Urine Protein <15 mg/dl mg/dL (Negative) 05/13/18 19:39 Urine Glucose (UA) Neg mg/dL (Negative) 05/13/18 19:39 Urine Ketones Neg mg/dL (Negative) 05/13/18 19:39 Urine Blood Sm (Negative) 05/13/18 19:39 Urine Nitrite Neg (Negative) 05/13/18 19:39 Urine Bilirubin Neg (Negative) 05/13/18 19:39 Urine Urobilinogen < 2.0 mg/dL (<2.0) 05/13/18 19:39 Ur Leukocyte Esterase Tr (Negative) 05/13/18 19:39 Urine WBC (Auto) 4.0 /HPF (0.0-6.0) 05/13/18 19:39 Urine RBC (Auto) 3.0 /HPF (0.0-6.0) 05/13/18 19:39 Urine WBC Clumps Few /HPF 05/13/18 19:39 Urine Mucus Few /HPF 05/13/18 19:39 Urine Creatinine 66.0 mg/dL (0.1-20.0) H 05/13/18 19:39 Urine Sodium 60 mmol/L 05/13/18 19:39 Urine Potassium 8.69 mmol/L 05/13/18 19:39 Urine Chloride 27.8 mmolL (110-250) L 05/13/18 19:39 Urine Total Protein 24 mg/dL (5-11.8) H 05/13/18 19:39 Urine Opiates Screen Presumptive negative 05/13/18 19:39 Urine Methadone Screen Presumptive negative 05/13/18 19:39 Ur Barbiturates Screen Presumptive negative 05/13/18 19:39 Ur Phencyclidine Scrn Presumptive negative 05/13/18 19:39 Ur Amphetamines Screen Presumptive negative 05/13/18 19:39 U Benzodiazepines Scrn Presumptive negative 05/13/18 19:39 Urine Cocaine Screen Presumptive negative 05/13/18 19:39 U Marijuana (THC) Screen Presumptive negative 05/13/18 19:39 Drugs of Abuse Note Disclamer 05/13/18 19:39
[2018-05-15] MEDS: LOPRESSOR PO SCH ×2 (13:49→21:17)
--- NOTE | 2018-05-15 14:44 | Progress Note ---
Assessment and Plan 52-year-old male with large pelvic mass with resultant hydronephrosis and acute renal failure refractory to Shrestha placement with minimal output. Status post bilateral nephrostomy tubes. Having minimal hematuria, which is expected. Diagnosed with infrapopliteal DVT, SVT, and calf muscle venous thrombus. No popliteal thrombus. Given recent nephrostomy tube placement, patient will need to avoid anticoagulation for aprox 2 weeks. Given the location of the thrombus, recommend PATRICK HOLLEY, SCD, and repeat venous duplex in 5-7 days x 2. If the thrombus progresses to the popliteal vein, then he will need IVC filter with initiation of anticoagulation in 14 days. Subjective Date of service: 05/15/18 Interval history: Status post bilateral nephrostomy tubes. Good urine output. Ultrasound of the lower extremities demonstrates infrapopliteal DVT, calf muscle venous thrombosis , and SVT. Objective - Constitutional Vitals: Vital Signs - 12hr 05/15/18 05/15/18 05/15/18 06:05 11:09 11:14 Temperature 100.2 F H Pulse Rate 107 H Respiratory 17 20 Rate Blood Pressure 168/108 168/108 O2 Sat by Pulse 92 Oximetry 05/15/18 12:02 Temperature 99.1 F Pulse Rate 103 H Respiratory 18 Rate Blood Pressure 159/100 O2 Sat by Pulse 95 Oximetry General appearance: Present: no acute distress - EENT Eyes: EOM intact ENT: hearing intact - Respiratory Respiratory effort: normal Extremities: normal temperature, normal color Extremity abnormal: edema (improving) - Gastrointestinal General gastrointestinal: Present: other (mild pain at the nephrostomy insertion sites) - Psychiatric Psychiatric: appropriate mood/affect, cooperative - Labs CBC & Chem 7: 05/15/18 08:06 05/15/18 08:06 Labs: Abnormal lab results 05/15/18 05/15/18 Range/Units 08:06 08:06 RBC 2.84 L (3.65-5.03) M/mm3 Hgb 8.5 L (11.8-15.2) gm/dl Hct 24.2 L (35.5-45.6) % MCHC 35 H (32-34) % [place] % (Auto) 10.4 H (0.0-7.3) % Lymph # 1.1 L (1.2-5.4) K/mm3 Seg Neutrophils % 72.6 H (40.0-70.0) % Carbon Dioxide 19 L (22-30) mmol/L BUN 66 H (9-20) mg/dL Creatinine 12.0 H (0.8-1.5) mg/dL Glucose 115 H (75-100) mg/dL Calcium 8.1 L (8.4-10.2) mg/dL
[2018-05-16] MEDS: MORPHINE IV PRN ×3 (00:59→21:40)
[2018-05-16] MEDS: APRESOLINE PO SCH ×3 (06:14→21:40)
[2018-05-16] MEDS: D5NS 1,000 ML IV SCH ×2 (06:43→21:38)
[2018-05-16 07:56] LABS: Calcium 8.3 mg/dL (8.4-10.2)
[2018-05-16 08:02] LABS: Basophils % (Auto) 0.4 % (0.0-1.8); Eosinophils % (Auto) 0.4 % (0.0-4.3); Hematocrit 23.5 % (35.5-45.6); Hemoglobin 8.5 gm/dl (11.8-15.2); Lymphocytes # (Auto) 1.7 K/mm3 (1.2-5.4); Mean Corpuscular HGB Conc 36 % (32-34); Mean Corpuscular Hemoglobin 31 pg (28-32); Mean Corpuscular Volume 86 fl (84-94); Monocytes # (Auto) 0.9 K/mm3 (0.0-0.8); Platelet Count 262 K/mm3 (140-440); Red Blood Count 2.74 M/mm3 (3.65-5.03); Red Cell Distribution Width 13.8 % (13.2-15.2)
[2018-05-16] MEDS ORDERED: MAGNESIUM SULFATE 2GM/50ML 2 GM/50 ML BAG IV ONE (09:00)
[2018-05-16] MEDS: LOPRESSOR PO SCH ×2 (10:06→21:39)
[2018-05-16] MEDS: NORVASC PO SCH (10:09)
--- NOTE | 2018-05-16 10:36 | Progress Note ---
Assessment and Plan 1. Acute kidney injury: Acute kidney injury in the setting of bilateral hydronephrosis secondary to pelvic mass. S/p bilateral nephrostomy. Renal function is much better. Monitor. 2. Hyperkalemia: Improved. Follow potassium level. 3. Bilateral hydronephrosis: S/p bilateral nephrostomy. 4. Uncontrolled HTN: Improving. 5. Anemia: Iron and Folate supplement. Subjective Date of service: 05/16/18 Interval history: Patient is doing ok. Objective - Vital Signs Vital signs: Vital Signs - 12hr 05/15/18 05/16/18 05/16/18 23:33 00:59 01:29 Temperature 100.2 F H Pulse Rate 99 H Respiratory 18 18 17 Rate Blood Pressure 150/89 O2 Sat by Pulse 89 Oximetry 05/16/18 05/16/18 05/16/18 06:08 10:06 10:09 Temperature 99.3 F Pulse Rate 80 80 Respiratory 16 Rate Blood Pressure 160/96 160/96 160/96 O2 Sat by Pulse Oximetry - General Appearance General appearance: well-developed, appears stated age, other (not in distress) EENT: ATNC, PERRL, mucous membranes dry, hearing intact, vision intact Neck: supple Respiratory: Present: Clear to Ascultation Cardiology: regular, S1S2, no murmurs Gastrointestinal: normoactive bowel sounds, other (bilateral nephrostomy tubes noted) Integumentary: no rash, warm and dry Neurologic: no focal deficit, no asterixis, alert and oriented x3 Musculoskeletal: other (no edema) - Lab 05/17/18 05:08 05/17/18 05:08 Most recent lab results Calcium 8.3 mg/dL (8.4-10.2) L 05/16/18 07:02 Phosphorus 2.70 mg/dL (2.5-4.5) 05/16/18 07:02 Magnesium 1.50 mg/dL (1.7-2.3) L 05/16/18 07:02 Urine Creatinine 66.0 mg/dL (0.1-20.0) H 05/13/18 19:39 Urine Sodium 60 mmol/L 05/13/18 19:39 Urine Total Protein 24 mg/dL (5-11.8) H 05/13/18 19:39
--- NOTE | 2018-05-16 11:03 | Progress Note ---
Assessment and Plan 52-year-old male with large pelvic mass with resultant hydronephrosis and acute renal failure refractory to Shrestha placement with minimal output. Status post bilateral nephrostomy tubes. Having minimal hematuria, which is expected. Diagnosed with infrapopliteal DVT, SVT, and calf muscle venous thrombus. No popliteal thrombus. Given recent nephrostomy tube placement, patient will need to avoid anticoagulation for aprox 2 weeks. Given the location of the thrombus, recommend PATRICK HOLLEY, SCD, and repeat venous duplex in 5-7 days x 2. Orders placed. If the thrombus progresses to the popliteal vein, then he will need IVC filter with initiation of anticoagulation once safe on 05/27/18. Given underlying malignancy, choices of anticoagulation are lovenox and possibly Eliquis. Subjective Date of service: 05/16/18 Interval history: Status post bilateral nephrostomy tubes. Good urine output. Ultrasound of the lower extremities demonstrates infrapopliteal DVT, calf muscle venous thrombosis , and SVT. Discussed plan with the patient. Objective - Constitutional Vitals: Vital Signs - 12hr 05/15/18 05/16/18 05/16/18 23:33 00:59 01:29 Temperature 100.2 F H Pulse Rate 99 H Respiratory 18 18 17 Rate Blood Pressure 150/89 O2 Sat by Pulse 89 Oximetry 05/16/18 05/16/18 05/16/18 06:08 10:06 10:09 Temperature 99.3 F Pulse Rate 80 80 Respiratory 16 Rate Blood Pressure 160/96 160/96 160/96 O2 Sat by Pulse Oximetry General appearance: Present: no acute distress - EENT Eyes: EOM intact ENT: hearing intact - Respiratory Respiratory effort: normal Extremities: normal temperature, normal color - Gastrointestinal General gastrointestinal: Present: soft - Psychiatric Psychiatric: appropriate mood/affect, cooperative - Labs CBC & Chem 7: 05/16/18 07:02 05/16/18 07:02 Labs: Abnormal lab results 05/16/18 05/16/18 05/16/18 Range/Units 07:02 07:02 07:02 RBC 2.74 L (3.65-5.03) M/mm3 Hgb 8.5 L (11.8-15.2) gm/dl Hct 23.5 L (35.5-45.6) % MCHC 36 H (32-34) % [place] % (Auto) 11.0 H (0.0-7.3) % [place] # 0.9 H (0.0-0.8) K/mm3 BUN 28 H (9-20) mg/dL Creatinine 2.4 H D (0.8-1.5) mg/dL Calcium 8.3 L (8.4-10.2) mg/dL Magnesium 1.50 L (1.7-2.3) mg/dL Iron 24 L (49-181) ug/dL TIBC 160 L (250-450) mcg/dL Folate 5.39 L (7.3-26.0) ng/mL
--- NOTE | 2018-05-16 13:01 | Progress Note ---
Assessment and Plan Assessment and plan: Acute kidney injury due to pelvic mass New diagnosis No history of renal disease Nephrology following. discussed with Dr. Bunch Ultrasound Kidneys showed bilat hydronephrosis CT Abd shows Pelvic mass with multiple large lymph nodes Had bilateral nephrostomy tubes placed 05/14/[address] Freeman. Creatinine much improved 2.4 today Urology to evaluate Large pelvic mass between bladder and rectum with large lyph nodes, likely malignant. Hypertensive urgency, BP still uncontrolled. Add Clonidine to Metoprolol, Norvasc and Hydralazine. Hyperkalemia, now resolved after Insulin, Kayexalate Hyponatremia. Resolved Metabolic acidosis due to MARYLOU Fever. Obtain blood cultures Full code status History Interval history: Bilateral nephrostomy tubes placed 05/14 Leg swelling improved Mild low abd pain Hospitalist Physical - Physical exam Narrative exam: GEN:Not in acute distress, HEENT: Normocephalic, atraumatic, Neck: supple, No JVD Lungs:Clear to auscultation bilaterally, no crackles, no wheeze Heart:S1 and S2 reg, no murmurs, rubs or gallop Abd:soft, mild tender lower abd, suprabubic, non-distended, Normal bowel sounds , bilateral nephrostomy tubes draining Ext:Bilateral lower ext edema, no cyanosis Neuro:AAO x 3, No focal neurological signs - Constitutional Vitals: Temp Pulse Resp BP Pulse Ox 99.3 F 80 16 160/96 89 05/16/18 06:08 05/16/18 10:09 05/16/18 06:08 05/16/18 10:09 05/15/18 23:33 General appearance: Present: no acute distress Results - Labs CBC & Chem 7: 05/16/18 07:02 05/16/18 07:02 Labs: Laboratory Last Values WBC 8.3 K/mm3 (4.5-11.0) 05/16/18 07:02 RBC 2.74 M/mm3 (3.65-5.03) L 05/16/18 07:02 Hgb 8.5 gm/dl (11.8-15.2) L 05/16/18 07:02 Hct 23.5 % (35.5-45.6) L 05/16/18 07:02 MCV 86 fl (84-94) 05/16/18 07:02 MCH 31 pg (28-32) 05/16/18 07:02 MCHC 36 % (32-34) H 05/16/18 07:02 RDW 13.8 % (13.2-15.2) 05/16/18 07:02 Plt Count 262 K/mm3 (140-440) 05/16/18 07:02 Lymph % (Auto) 21.0 % (13.4-35.0) 05/16/18 07:02 Gray % (Auto) 11.0 % (0.0-7.3) H 05/16/18 07:02 Eos % (Auto) 0.4 % (0.0-4.3) 05/16/18 07:02 Baso % (Auto) 0.4 % (0.0-1.8) 05/16/18 07:02 Lymph # 1.7 K/mm3 (1.2-5.4) 05/16/18 07:02 Gray # 0.9 K/mm3 (0.0-0.8) H 05/16/18 07:02 Eos # 0.0 K/mm3 (0.0-0.4) 05/16/18 07:02 Baso # 0.0 K/mm3 (0.0-0.1) 05/16/18 07:02 Seg Neutrophils % 67.2 % (40.0-70.0) 05/16/18 07:02 Seg Neutrophils # 5.6 K/mm3 (1.8-7.7) 05/16/18 07:02 PT 14.3 Sec. (12.2-14.9) 05/14/18 13:29 INR 1.06 (0.87-1.13) 05/14/18 13:29 APTT 38.2 Sec. (24.2-36.6) H 05/14/18 13:29 Sodium 139 mmol/L (137-145) 05/16/18 07:02 Potassium 4.2 mmol/L (3.6-5.0) 05/16/18 07:02 Chloride 105.4 mmol/L (98-107) 05/16/18 07:02 Carbon Dioxide 22 mmol/L (22-30) 05/16/18 07:02 Anion Gap 16 mmol/L 05/16/18 07:02 BUN 28 mg/dL (9-20) H 05/16/18 07:02 Creatinine 2.4 mg/dL (0.8-1.5) H D 05/16/18 07:02 Estimated GFR 35 ml/min 05/16/18 07:02 BUN/Creatinine Ratio 12 % 05/16/18 07:02 Glucose 96 mg/dL (75-100) 05/16/18 07:02 POC Glucose 126 (70-105) H 05/14/18 10:56 Hemoglobin A1c 5.7 % (4-6) 05/14/18 05:05 Calcium 8.3 mg/dL (8.4-10.2) L 05/16/18 07:02 Phosphorus 2.70 mg/dL (2.5-4.5) 05/16/18 07:02 Magnesium 1.50 mg/dL (1.7-2.3) L 05/16/18 07:02 Iron 24 ug/dL (49-181) L 05/16/18 07:02 TIBC 160 mcg/dL (250-450) L 05/16/18 07:02 Ferritin 325.8 ng/mL (13.0-400.0) 05/16/18 07:02 Total Bilirubin < 0.20 mg/dL (0.1-1.2) 05/13/18 04:27 AST 15 units/L (5-40) 05/13/18 04:27 ALT 10 units/L (7-56) 05/13/18 04:27 Alkaline Phosphatase 80 units/L (35-129) 05/13/18 04:27 Total Creatine Kinase 236 units/L (55-170) H 05/14/18 05:05 Total Protein 8.1 g/dL (6.3-8.2) 05/13/18 04:27 Albumin 2.8 g/dL (3.9-5) L 05/13/18 04:27 Albumin/Globulin Ratio 0.5 % 05/13/18 04:27 Prostate Specific Ag 0.96 ng/mL (0.00-4.00) 05/14/18 13:29 Vitamin B12 359.2 pg/mL (211-911) 05/16/18 07:02 Folate 5.39 ng/mL (7.3-26.0) L 05/16/18 07:02 TSH 3.180 mlU/mL (0.270-4.200) 05/14/18 05:05 PTH Intact 65.37 pg/mL (15-65) H 05/14/18 05:05 Urine Color Straw (Yellow) 05/13/18 19:39 Urine Turbidity Slightly-cloudy (Clear) 05/13/18 19:39 Urine pH 6.0 (5.0-7.0) 05/13/18 19:39 Ur Specific [place] 1.006 (1.003-1.030) 05/13/18 19:39 Urine Protein <15 mg/dl mg/dL (Negative) 05/13/18 19:39 Urine Glucose (UA) Neg mg/dL (Negative) 05/13/18 19:39 Urine Ketones Neg mg/dL (Negative) 05/13/18 19:39 Urine Blood Sm (Negative) 05/13/18 19:39 Urine Nitrite Neg (Negative) 05/13/18 19:39 Urine Bilirubin Neg (Negative) 05/13/18 19:39 Urine Urobilinogen < 2.0 mg/dL (<2.0) 05/13/18 19:39 Ur Leukocyte Esterase Tr (Negative) 05/13/18 19:39 Urine WBC (Auto) 4.0 /HPF (0.0-6.0) 05/13/18 19:39 Urine RBC (Auto) 3.0 /HPF (0.0-6.0) 05/13/18 19:39 Urine WBC Clumps Few /HPF 05/13/18 19:39 Urine Mucus Few /HPF 05/13/18 19:39 Urine Creatinine 66.0 mg/dL (0.1-20.0) H 05/13/18 19:39 Urine Sodium 60 mmol/L 05/13/18 19:39 Urine Potassium 8.69 mmol/L 05/13/18 19:39 Urine Chloride 27.8 mmolL (110-250) L 05/13/18 19:39 Urine Total Protein 24 mg/dL (5-11.8) H 05/13/18 19:39 Urine Opiates Screen Presumptive negative 05/13/18 19:39 Urine Methadone Screen Presumptive negative 05/13/18 19:39 Ur Barbiturates Screen Presumptive negative 05/13/18 19:39 Ur Phencyclidine Scrn Presumptive negative 05/13/18 19:39 Ur Amphetamines Screen Presumptive negative 05/13/18 19:39 U Benzodiazepines Scrn Presumptive negative 05/13/18 19:39 Urine Cocaine Screen Presumptive negative 05/13/18 19:39 U Marijuana (THC) Screen Presumptive negative 05/13/18 19:39 Drugs of Abuse Note Disclamer 05/13/18 19:39
--- NOTE | 2018-05-16 17:54 | XRay Report ---
FINAL REPORT EXAM: XR CHEST 1V AP HISTORY: fever TECHNIQUE: Frontal portable view of the chest Comparison: CT abdomen and pelvis dated May 14, 2018 FINDINGS: There is a left pleural fluid collection with pulmonary consolidation in the left lung base. Atelectasis versus infiltrate. There appear to be patchy areas of pulmonary consolidation in the right upper lung field and right midlung field. There prominence of the interstitial markings in both lungs. There appears to be prominence of the pulmonary venous vasculature suggestive of pulmonary venous congestion. The cardiac silhouette is enlarged. The thoracic aorta and bony structures are unremarkable. Visualization detail of the thoracic spine is limited. IMPRESSION: 1. Left pleural effusion with pulmonary consolidation, atelectasis versus infiltrate left lung base. 2. Appearance of patchy areas of pulmonary consolidation in the right upper lung field and right midlung field. 3. Enlarged cardiac silhouette. 4. Evidence of pulmonary venous congestion. Infectious and noninfectious etiologies, to include CHF, need to be considered. In this patient with a previously described intra-abdominal mass, pulmonary metastases would also need to be considered. CT chest would be helpful for further evaluation.
[2018-05-16] MEDS: CATAPRES PO SCH ×2 (18:34→21:40)
--- NOTE | 2018-05-16 19:20 | Vascular Lab Report ---
LOWER EXTREMITY VENOUS DUPLEX: REASON FOR EXAM: Pain and swelling of the lower extremities. COMMENTS ON THE RIGHT: Acute deep venous thrombosis is seen in the right peroneal vein in the midportion. The remaining veins visualized are freely compressible without evidence of internal echogenicity. Spontaneous and phasic flow is present proximally. COMMENTS ON THE LEFT: Acute superficial venous thrombosis is seen in the short saphenous vein and an isolated soleal vein. The remaining veins visualized are freely compressible without evidence of internal echogenicity. Spontaneous and phasic flow is present proximally. IMPRESSION: Acute deep venous thrombosis of the right lower extremity involving the mid segment of the peroneal vein in the calf. Acute superficial venous thrombosis of the left lesser saphenous vein in the calf. Acute soleal vein thrombosis in the left calf.
[2018-05-17 05:43] LABS: Basophils % (Auto) 0.4 % (0.0-1.8); Eosinophils # (Auto) 0.1 K/mm3 (0.0-0.4); Eosinophils % (Auto) 0.9 % (0.0-4.3); Hematocrit 23.9 % (35.5-45.6); Hemoglobin 8.2 gm/dl (11.8-15.2); Lymphocytes # (Auto) 1.4 K/mm3 (1.2-5.4); Mean Corpuscular HGB Conc 34 % (32-34); Mean Corpuscular Hemoglobin 30 pg (28-32); Mean Corpuscular Volume 86 fl (84-94); Monocytes # (Auto) 0.9 K/mm3 (0.0-0.8); Monocytes % (Auto) 13.9 % (0.0-7.3); Platelet Count 246 K/mm3 (140-440); Red Blood Count 2.78 M/mm3 (3.65-5.03); Red Cell Distribution Width 13.6 % (13.2-15.2)
[2018-05-17] MEDS: CATAPRES PO SCH ×3 (05:56→18:22)
[2018-05-17] MEDS: APRESOLINE PO SCH ×3 (05:56→22:37)
[2018-05-17 06:01] LABS: BUN/Creatinine Ratio 13; Blood Urea Nitrogen 16 mg/dL (9-20); Calcium 7.7 mg/dL (8.4-10.2); Hemolysis Index 0
[2018-05-17] MEDS: LOPRESSOR PO SCH ×2 (09:53→22:37)
[2018-05-17] MEDS: NORVASC PO SCH (09:53)
[2018-05-17] MEDS: D5NS 1,000 ML IV SCH (09:53)
--- NOTE | 2018-05-17 09:58 | Progress Note ---
Assessment and Plan 1. Acute kidney injury: Acute kidney injury in the setting of bilateral hydronephrosis secondary to pelvic mass. S/p bilateral nephrostomy. Renal function is much better. Monitor. 2. Electrolytes: Replete Mg. 3. Bilateral hydronephrosis: S/p bilateral nephrostomy. 4. Uncontrolled HTN: BP is better. 5. Anemia: Iron and Folate supplement. Subjective Date of service: 05/17/18 Interval history: Patient is doing ok. Objective - Vital Signs Vital signs: Vital Signs - 12hr 05/17/18 05/17/18 05/17/18 00:11 05:53 05:56 Temperature 98.7 F Pulse Rate 87 88 88 Respiratory 20 18 Rate Blood Pressure 142/91 143/93 143/93 O2 Sat by Pulse 95 96 Oximetry - General Appearance General appearance: well-developed, appears stated age, other (not in distress) EENT: ATNC, PERRL, mucous membranes moist, hearing intact, vision intact Neck: supple Respiratory: Present: Clear to Ascultation Cardiology: regular, S1S2, no murmurs Gastrointestinal: normoactive bowel sounds, no tenderness, other (bilateral nephrostomy tubes noted) Integumentary: no rash, warm and dry Neurologic: no focal deficit, no asterixis, alert and oriented x3 Musculoskeletal: other (no edema) Psychiatric: cooperative - Lab 05/17/18 05:08 05/17/18 05:08 Most recent lab results Calcium 7.7 mg/dL (8.4-10.2) L 05/17/18 05:08 Phosphorus 2.70 mg/dL (2.5-4.5) 05/16/18 07:02 Magnesium 1.60 mg/dL (1.7-2.3) L 05/17/18 05:08 Urine Creatinine 66.0 mg/dL (0.1-20.0) H 05/13/18 19:39 Urine Sodium 60 mmol/L 05/13/18 19:39 Urine Total Protein 24 mg/dL (5-11.8) H 05/13/18 19:39
[2018-05-17] MEDS ORDERED: MAGNESIUM SULFATE 2GM/50ML 2 GM/50 ML BAG IV ONE (12:00)
--- NOTE | 2018-05-17 12:05 | Progress Note ---
Assessment and Plan Pt admitted with large pelvic mass and lymphadenopathy. Pt noted to have hydronephrosis and MARYLOU. IR consult placed and now s/p nephtube placement. Urology consulted. Venous duplex revealed acute dvt in the R peroneal vein (mid calf) and a SVT in the L small saph. and soleal veins (mid calf). Pt is not a good candidate for anticoagulation at present (s/p bilat Neph tube placement). Therefore, PATRICK hose and SCDs were ordered. He will need repeat venous duplex q5days x2 (to eval for propagation of thrombus). If the DVT propagates above the knee then he will need an IVC filter. Pt could likely be started on anticoagulation after 14days if no concerns of active bleeding at that time. Pt with pelvic mass, lymphadenopathy, and bilat lower ext thrombotic events ( possible hypercoagulable state). Pt will need malignacy work up. - Patient Problems (1) Pelvic mass in male Current Visit: Yes Status: Acute Subjective Date of service: 05/17/18 Interval history: Pt awake and alert without complaint at present. Objective - Constitutional Vitals: Vital Signs - 12hr 05/17/18 05/17/18 05/17/18 00:11 05:53 05:56 Temperature 98.7 F Pulse Rate 87 88 88 Respiratory 20 18 Rate Blood Pressure 142/91 143/93 143/93 O2 Sat by Pulse 95 96 Oximetry General appearance: Present: no acute distress - EENT Eyes: EOM intact ENT: hearing intact - Respiratory Respiratory effort: normal Extremities: abnormal (Bilat PATRICK hose and SCDs in place) - Neurologic Neurologic: no focal deficits - Psychiatric Psychiatric: appropriate mood/affect, intact judgment & insight, cooperative - Labs CBC & Chem 7: 05/17/18 05:08 05/17/18 05:08 Labs: Abnormal lab results 05/17/18 05/17/18 Range/Units 05:08 05:08 RBC 2.78 L (3.65-5.03) M/mm3 Hgb 8.2 L (11.8-15.2) gm/dl Hct 23.9 L (35.5-45.6) % [place] % (Auto) 13.9 H (0.0-7.3) % [place] # 0.9 H (0.0-0.8) K/mm3 Calcium 7.7 L (8.4-10.2) mg/dL Magnesium 1.60 L (1.7-2.3) mg/dL
--- NOTE | 2018-05-17 13:49 | Progress Note ---
Assessment and Plan /Pelvic mass Large pelvic mass between bladder and rectum with large lyph nodes, likely malignant. Consulted Urology to evaluate plan for cystoscopy tomorrow will also consult oncology /Acute kidney injury due to pelvic mass New diagnosis, No history of renal disease Nephrology following. discussed with Dr. Bunch Ultrasound Kidneys showed bilat hydronephrosis CT Abd shows Pelvic mass with multiple large lymph nodes Had bilateral nephrostomy tubes placed 05/14/[address] Freeman. Creatinine continued to improve /Acute DVT right femoral vein. Discussed with Dr. Freeman. No anticoagulation for now because of bilateral nephrostomy tubes. need to reassess with repeat US in a week If the DVT propagates above the knee then he will need an IVC filter. Pt could likely be started on anticoagulation after 14days if no concerns of active bleeding at that time. /Hypertensive urgency, cont Clonidine, Metoprolol, Norvasc and Hydralazine. /Hyperkalemia, now resolved after Insulin, Kayexalate /Hyponatremia, Resolved /Metabolic acidosis due to MARYLOU, resolved with iv fluid /Fever, Obtained blood cultures Full code status Hospitalist Physical GEN:Not in acute distress, HEENT: Normocephalic, atraumatic, Neck: supple, No JVD Lungs:Clear to auscultation bilaterally, no crackles, no wheeze Heart:S1 and S2 reg, no murmurs, rubs or gallop Abd:soft, mild tender lower abd, suprabubic, non-distended, Normal bowel sounds , bilateral nephrostomy tubes draining Ext:Bilateral lower ext edema, no cyanosis Neuro:AAO x 3, No focal neurological signs Subjective Date of service: 05/17/18 Interval history: pt seen and examined Bilateral nephrostomy tubes placed 05/14, remained intact Leg swelling improved Mild low abd pain, plan for cysto tomorrow Objective - Constitutional Vitals: Vital Signs - 12hr 05/17/18 05/17/18 05/17/18 05:53 05:56 12:42 Temperature 98.7 F 98.9 F Pulse Rate 88 88 87 Respiratory 18 20 Rate Blood Pressure 143/93 143/93 136/86 O2 Sat by Pulse 96 95 Oximetry - Labs CBC & Chem 7: 05/19/18 05:33 05/19/18 05:33 Labs: Abnormal lab results 05/17/18 05/17/18 Range/Units 05:08 05:08 RBC 2.78 L (3.65-5.03) M/mm3 Hgb 8.2 L (11.8-15.2) gm/dl Hct 23.9 L (35.5-45.6) % [place] % (Auto) 13.9 H (0.0-7.3) % [place] # 0.9 H (0.0-0.8) K/mm3 Calcium 7.7 L (8.4-10.2) mg/dL Magnesium 1.60 L (1.7-2.3) mg/dL
--- NOTE | 2018-05-17 17:36 | Consultation ---
History of Present Illness - Reason for Consult Consult date: 05/17/18 - History of Present Illness The patient is a 52 YO AAM with medical history significant for Uncontrolled HTN who came to the ER for evaluation of bilateral leg swelling, SOB and no urine output. He developed lower abdominal pain about 3 weeks ago, which was sharp, intermittent and not radiating. He noticed bilateral leg swelling about a week ago. He stopped making urine for the past 5 days. Patient also reports fatigue and RIVERA. Usually he takes Aleve every other day but he has been taking it everyday for the past week. Denies any fever, chills, rash, dysuria, hematuria, abdominal distention, N, V, D, dizziness, cp, cough, jaundice, weakness, muscle cramps, syncope or confusion. His creatinine is 14.4, K 5.5 and bicarb 19. He was seen in the ER last year and his BP was around 170/110. He is not taking any meds on a regular basis and has not seen a physician except ER visit last year. NO SURGERY IN PAST Ultrasound Kidneys showed bilat hydronephrosis CT Abd shows Pelvic mass with multiple large lymph nodes Had bilateral nephrostomy tubes placed 05/14/[address] Freeman. Creatinine much improved 1.2 today A/P needs cysto NPO AFTER MN Past History Past Medical History: No medical history Past Surgical History: No surgical history Social history: single, Lives alone, smoking (Smokes 1 pack cigarettes daily), full code, other (Alcohol once to twice a week) Family history: no significant family history Medications and Allergies Allergies Allergy/AdvReac Type Severity Reaction Status Date / Time No Known Allergies Allergy Verified 10/31/16 11:50 Home Medications Medication Instructions Recorded Confirmed Last Taken Type No Known Home Medications [No 05/13/18 05/13/18 Unknown History Reported Home Medications] Active Meds: Active Medications Amlodipine Besylate (Norvasc) 10 mg PO QDAY [facility] Last Admin: 05/17/18 09:53 Dose: 10 mg Clonidine HCl (Catapres) 0.2 mg PO Q12H [facility] Last Admin: 05/17/18 06:10 Dose: Not Given Hydralazine HCl (Apresoline) 20 mg IV Q4HR PRN PRN Reason: For SBP>170 or DBP>110 Hydralazine HCl (Apresoline) 100 mg PO Q8HR [facility] Last Admin: 05/17/18 16:40 Dose: 100 mg Dextrose/Sodium Chloride (D5ns) 1,000 mls @ 75 mls/hr IV DIRECT [facility] Last Admin: 05/17/18 09:53 Dose: 75 mls/hr Metoprolol Tartrate (Lopressor) 50 mg PO BID [facility] Last Admin: 05/17/18 09:53 Dose: 50 mg Morphine Sulfate (Morphine) 2 mg IV Q4H PRN PRN Reason: Pain, Moderate (4-6) Last Admin: 05/16/18 21:40 Dose: 2 mg Oxycodone/Acetaminophen (Percocet 5/325) 2 tab PO Q6H PRN PRN Reason: Pain, Moderate (4-6) Exam - Constitutional Vitals: Temp Pulse Resp BP Pulse Ox 98.9 F 87 20 136/86 95 05/17/18 12:42 05/17/18 12:42 05/17/18 12:42 05/17/18 12:42 05/17/18 12:42 Results - Labs CBC & Chem 7: 05/17/18 05:08 05/17/18 05:08 Labs: Abnormal lab results 05/17/18 05/17/18 Range/Units 05:08 05:08 RBC 2.78 L (3.65-5.03) M/mm3 Hgb 8.2 L (11.8-15.2) gm/dl Hct 23.9 L (35.5-45.6) % [place] % (Auto) 13.9 H (0.0-7.3) % [place] # 0.9 H (0.0-0.8) K/mm3 Calcium 7.7 L (8.4-10.2) mg/dL Magnesium 1.60 L (1.7-2.3) mg/dL
[2018-05-17] MEDS: PERCOCET 5/325 PO PRN (18:42)
[2018-05-17] MEDS: FEOSOL PO SCH (22:42)
[2018-05-18] MEDS: D5NS 1,000 ML IV SCH ×2 (00:22→16:55)
[2018-05-18] MEDS: APRESOLINE PO SCH ×3 (05:58→21:35)
[2018-05-18] MEDS: CATAPRES PO SCH ×2 (06:03→19:02)
[2018-05-18 06:37] LABS: Basophils % (Auto) 0.5 % (0.0-1.8); Eosinophils # (Auto) 0.2 K/mm3 (0.0-0.4); Eosinophils % (Auto) 2.2 % (0.0-4.3); Hemoglobin 8.3 gm/dl (11.8-15.2); Lymphocytes # (Auto) 1.2 K/mm3 (1.2-5.4); Lymphocytes % (Auto) 16.9 % (13.4-35.0); Mean Corpuscular HGB Conc 35 % (32-34); Mean Corpuscular Hemoglobin 30 pg (28-32); Mean Corpuscular Volume 86 fl (84-94); Monocytes # (Auto) 0.9 K/mm3 (0.0-0.8); Monocytes % (Auto) 11.8 % (0.0-7.3); Platelet Count 280 K/mm3 (140-440); Red Blood Count 2.79 M/mm3 (3.65-5.03); Red Cell Distribution Width 13.3 % (13.2-15.2)
[2018-05-18 07:04] LABS: BUN/Creatinine Ratio 16; Blood Urea Nitrogen 14 mg/dL (9-20); Hemolysis Index 0
--- NOTE | 2018-05-18 08:31 | Progress Note ---
Assessment and Plan 1. Acute kidney injury: Acute kidney injury in the setting of bilateral hydronephrosis secondary to pelvic mass. S/p bilateral nephrostomy. Renal function has improved. Monitor. 2. Electrolytes: Replete Mg. 3. Bilateral hydronephrosis: S/p bilateral nephrostomy. Cysto today. 4. Uncontrolled HTN: BP is better. 5. Anemia: Iron and Folate supplement. Subjective Date of service: 05/18/18 Interval history: Patient is doing ok. Objective - Vital Signs Vital signs: Vital Signs - 12hr 05/17/18 05/17/18 05/17/18 22:00 22:37 22:43 Temperature 97.0 F L Pulse Rate 91 H 88 Respiratory 18 16 Rate Blood Pressure 134/85 137/92 O2 Sat by Pulse 95 93 Oximetry 05/18/18 05/18/18 06:03 06:37 Temperature 98.5 F Pulse Rate 84 86 Respiratory 19 Rate Blood Pressure 139/86 129/82 O2 Sat by Pulse 96 Oximetry - General Appearance General appearance: well-developed, appears stated age, other (not in distress) EENT: ATNC, PERRL, mucous membranes moist, hearing intact, vision intact Neck: supple Respiratory: Present: Clear to Ascultation Cardiology: regular, S1S2, no murmurs Gastrointestinal: normoactive bowel sounds, no tenderness, other (bilateral Nephrostomy tubes noted) Integumentary: no rash, warm and dry Neurologic: no focal deficit, no asterixis, alert and oriented x3 Musculoskeletal: other (no edema) Psychiatric: cooperative - Lab 05/18/18 05:57 05/18/18 05:57 Most recent lab results Calcium 8.0 mg/dL (8.4-10.2) L 05/18/18 05:57 Phosphorus 3.20 mg/dL (2.5-4.5) 05/18/18 05:57 Magnesium 1.70 mg/dL (1.7-2.3) 05/18/18 05:57 Urine Creatinine 66.0 mg/dL (0.1-20.0) H 05/13/18 19:39 Urine Sodium 60 mmol/L 05/13/18 19:39 Urine Total Protein 24 mg/dL (5-11.8) H 05/13/18 19:39
[2018-05-18] MEDS ORDERED: MAGNESIUM SULFATE 2GM/50ML 2 GM/50 ML BAG IV ONE (10:00)
--- NOTE | 2018-05-18 12:09 | Query- Renal Failure ---
Juan Pablo Marques Trini Date:____05/18/18 It Service Continuity Supervisor/CDS:__mesha Phone#:___[phone] Exercise your independent professional judgment when responding to query. Questions asked do not imply a particular answer is desired or expected. We greatly appreciate your clarification on this issue. Clinical Documentation States: Patient is 52 yo presented with bilateral leg swelling for 1 week, shortness of breath, abdominal cramps and states he has not passed urine in about 5 days. Assessment and Plan: Acute kidney injury due to pelvic mass Acute DVT right femoral vein Hypertensive urgency Hyperkalemia Hyponatremia Metabolic acidosis due to MARYLOU Clinical Findings Show: 05/13/18 05/15/18 05/16/18 05/17/18 Creatinine 15.0 12.0 2.4 1.2 Bun/Cr ratio 5 6 12 13 Please clarify if you mean: Acute Renal Failure with or due to: [ ] Tubular Necrosis [ ] Medullary Necrosis [ ] Vasomotor Nephropathy [ ] Shock Kidney [ ] Tubular Nephrosis [ ] Renal Tubular Stasis [ ] Cortical Necrosis [ ] Acute Renal Failure (unspecified) [ ] Lower Tubular Nephrosis [ ] Other: [ ] Not Applicable Present on Admission: [ ] Yes (Y) [ ] Clinically undeterminable (W) [ ] No (N) Please also document response in your Progress Notes and/or Discharge Summary and indicate if the condition was present on admission. BANG
--- NOTE | 2018-05-18 12:13 | Query- Nutrition ---
Juan Pablo Abbott Date:_05/18/18 Fuel Conversion Technician/CDS:____mesha Phone#:____[phone] Exercise your independent professional judgment when responding to query. Questions asked do not imply a particular answer is desired or expected. We greatly appreciate your clarification on this issue. Clinical Documentation States: Patient is 52 yo presented with bilateral leg swelling for 1 week, shortness of breath, abdominal cramps and states he has not passed urine in about 5 days. Assessment and Plan: Acute kidney injury due to pelvic mass Acute DVT right femoral vein Hypertensive urgency Hyperkalemia Clinical Findings Show: Albumin: 2.8 Please select the most appropriate option 3 [ ] Mild Malnutrition [ ] Moderate Malnutrition [ ] Moderate - Severe Malnutrition [ ] Severe Malnutrition Serum Albumin 2.8 to 3.4 g/dl or Pre-albumin 5 to 17 mg/dl1,2 Inadequate nutritional intake1,2,3,4 NPO > 5 days Weight loss: 5% in 1 month or 7.5% in 3 months or 10% in 6 months1, 3,4 BMI 16 to 18.4 or Weight <90% of ideal body weight1,2,3,4 Serum Albumin < 2.8 g/ dl1,2 Lymphocytes < 1500/ L2 Inadequate nutritional intake3, high stress e.g. major trauma, sepsis,pancreatitis, holder etc. Decubitus ulcers1,2, , skin breakdown2, easy hair pluckability2 Weight <80% standard for height2 Triceps skin fold <3 mm2 Mid-arm muscle circumference <15 cm2 Creatinine-height index <60% standard2 [ ] Cachexia [ ] Emaciated w/Malnutrition [ ] Other: [ ] Unable to determine [ ] Comment/Explanation: Present on Admission: [ ] Yes (Y) [ ] Clinically undeterminable (W) [ ] No ( N) Please also document response in your Progress Notes and/or Discharge Summary and indicate if the condition was present on admission. MTDD
--- NOTE | 2018-05-18 13:56 | Anesthesia Consultation ---
Anesthesia Consult and Med Hx Date of service: 05/18/18 - Airway Anesthetic Teeth Evaluation: Poor ROM Head & Neck: Adequate Mental/Hyoid Distance: Adequate Mallampati Class: Class II Intubation Access Assessment: Probably Good - Pulmonary Exam CTA: Yes - Cardiac Exam Cardiac Exam: RRR - Pre-Operative Health Status ASA Pre-Surgery Classification: ASA3 Proposed Anesthetic Plan: General - Pulmonary Hx Asthma: Yes COPD: No Hx Pneumonia: No - Endocrine Hx End Stage Renal Disease: No - Additional Comments Anesthesia Medical History Comments: resolving Acute Renal insuff
--- NOTE | 2018-05-18 13:56 | Anesthesia Day of Surgery ---
Anesthesia Day of Surgery - Day of Surgery Patient Examined: Yes Patient H&P Reviewed: Yes Patient is NPO: Yes Beta Blockers: No
[2018-05-18] MEDS ORDERED: ZOFRAN IV PRN (13:57)
[2018-05-18] MEDS ORDERED: DILAUDID IV PRN ×2 (13:57)
[2018-05-18] MEDS ORDERED: TYLENOL PO PRN (13:57)
[2018-05-18] MEDS ORDERED: LACTATED RINGERS 1,000 ML IV SCH (14:00)
[2018-05-18] MEDS ORDERED: LEVAQUIN 500MG/100ML 500 MG/100 ML BAG IV NR (14:00)
[2018-05-18] MEDS ORDERED: SUBLIMAZE ONE (14:18)
[2018-05-18] MEDS ORDERED: DIPRIVAN 10 MG/ML IV ONE (14:19)
[2018-05-18] MEDS ORDERED: DECADRON ONE (14:24)
--- NOTE | 2018-05-18 14:56 | Event Note ---
Date: 05/18/18 came to see pt - pt has gone for urology procedure D/w RN and Dr Mason
--- NOTE | 2018-05-18 15:04 | Post Operative Note ---
Date of procedure: 05/18/18 Pre-op diagnosis: bladder mass Post-op diagnosis: other (prostate mass) Procedure: cysto, rt rpg, pus 340cc, bx prostate Anesthesia: GETA Surgeon: MOUSTAPHA VALLECILLO Estimated blood loss: minimal Pathology: list (prostate) Specimen disposition: to lab Condition: stable Disposition: PACU
--- NOTE | 2018-05-18 15:29 | Operative Report ---
PREOPERATIVE DIAGNOSES: Bladder mass, renal failure, status post bilateral nephrostomy tubes. POSTOPERATIVE DIAGNOSES: Bladder mass, renal failure, status post bilateral nephrostomy tubes, prostate mass. PROCEDURE: Cystoscopy, right retrograde pyelogram, transrectal ultrasound, biopsy of prostate (ultrasound revealed a 350 gram gland). SURGEON: Garett Varma MD ANESTHESIA: General. ESTIMATED BLOOD LOSS: Minimal. FLUIDS: Crystalloid. COMPLICATIONS: No complications. INDICATIONS: This patient is a 52-year-old gentleman presented to the hospital with leg swelling, shortness of breath, unable to urinate, difficulty urinating for 5 days. Creatinine was found to be 12. He underwent bilateral nephrostomy tube placements, creatinine nadired to 1.2. CT of abdomen and pelvis revealed pelvic mass, unable to differentiate whether bladder mass or prostate. He presents now for intervention. Risks, benefits, and complications were explained. DESCRIPTION OF PROCEDURE: The patient was taken to the operative suite, placed in a supine position. After adequate general anesthesia, placed in a dorsal lithotomy position, prepped and draped in a sterile fashion. Pancystourethroscopy was performed with a 22-Mosotho Storz cystoscope, trilobar prostatic obstruction. The patient had a posterior mass effect, which could be due to enlarged prostate versus colorectal in nature as well. Right retrograde pyelogram was obtained with an 8-Mosotho Rock catheter and 8 mL of contrast. No filling defects or obstruction. At this point, he had bilateral nephrostomy tube. Could not see the left ureteral orifice due to the displacement of the bladder from the posterior mass. Using transrectal ultrasound measurements in 2 planes revealed 350 gram gland. Twelve core biopsy was taken of the prostate. Rectal exam was nodular; however, it is unclear if this is just prostate in nature and colorectal. The patient may also require colonoscopy if not already done in this 52-year-old. He was extubated and taken to recovery room in stable condition. JOB# [id number] [facility]
--- NOTE | 2018-05-18 15:54 | Progress Note ---
Assessment and Plan /Pelvic mass Large pelvic mass between bladder and rectum with large lyph nodes, likely malignant. Consulted Urology to evaluate, s/p cystoscopy today, will follow report Consult oncology, formal consult pending /Acute kidney injury due to pelvic mass New diagnosis, No history of renal disease Nephrology following. discussed with Dr. Bunch Ultrasound Kidneys showed bilat hydronephrosis CT Abd shows Pelvic mass with multiple large lymph nodes Had bilateral nephrostomy tubes placed 05/14/[address] Freeman. Creatinine continued to improve /Acute DVT right femoral vein. Discussed with Dr. Freeman. No anticoagulation for now because of bilateral nephrostomy tubes. need to reassess with repeat US in a week If the DVT propagates above the knee then he will need an IVC filter. Pt could likely be started on anticoagulation after 14days if no concerns of active bleeding at that time. /Hypertensive urgency, cont Clonidine, Metoprolol, Norvasc and Hydralazine. /Hyperkalemia, now resolved after Insulin, Kayexalate /Hyponatremia, Resolved /Metabolic acidosis due to MARYLOU, resolved with iv fluid /Fever, Obtained blood cultures Full code status Hospitalist Physical GEN:Not in acute distress, HEENT: Normocephalic, atraumatic, Neck: supple, No JVD Lungs:Clear to auscultation bilaterally, no crackles, no wheeze Heart:S1 and S2 reg, no murmurs, rubs or gallop Abd:soft, mild tender lower abd, suprabubic, non-distended, Normal bowel sounds , bilateral nephrostomy tubes draining Ext:Bilateral lower ext edema, no cyanosis Neuro:AAO x 3, No focal neurological signs Subjective Date of service: 05/18/18 Interval history: pt seen and examined s/p cysto today, will wait for the report patient denies any new issue Objective - Constitutional Vitals: Vital Signs - 12hr 05/18/18 05/18/18 05/18/18 06:03 06:37 11:37 Temperature 98.5 F 97.9 F Pulse Rate 84 86 87 Respiratory 19 18 Rate Blood Pressure 139/86 129/82 136/80 O2 Sat by Pulse 96 95 Oximetry 05/18/18 05/18/18 05/18/18 13:00 13:32 15:11 Temperature 100.9 F H 100.3 F H 98.6 F Pulse Rate 81 86 Respiratory 18 20 Rate Blood Pressure 146/83 113/87 O2 Sat by Pulse 98 100 Oximetry 05/18/18 05/18/18 05/18/18 15:15 15:20 15:25 Temperature Pulse Rate 84 84 82 Respiratory 14 14 15 Rate Blood Pressure 116/71 122/78 125/80 O2 Sat by Pulse 100 100 100 Oximetry 05/18/18 05/18/18 15:30 15:45 Temperature Pulse Rate 82 81 Respiratory 16 19 Rate Blood Pressure 126/81 133/85 O2 Sat by Pulse 96 95 Oximetry - Labs CBC & Chem 7: 05/19/18 05:33 05/19/18 05:33 Labs: Abnormal lab results 05/18/18 05/18/18 Range/Units 05:57 05:57 RBC 2.79 L (3.65-5.03) M/mm3 Hgb 8.3 L (11.8-15.2) gm/dl Hct 24.0 L (35.5-45.6) % MCHC 35 H (32-34) % [place] % (Auto) 11.8 H (0.0-7.3) % [place] # 0.9 H (0.0-0.8) K/mm3 Calcium 8.0 L (8.4-10.2) mg/dL
[2018-05-18] MEDS: NORVASC PO SCH (16:53)
[2018-05-18] MEDS: LOPRESSOR PO SCH ×2 (16:53→21:36)
[2018-05-18] MEDS: FOLVITE PO SCH (16:54)
[2018-05-18] MEDS: FEOSOL PO SCH ×2 (16:54→21:35)
[2018-05-18 20:24] LABS: Myeloperoxidase Antibody <1.0 AI (<1.0)
--- NOTE | 2018-05-18 20:46 | Ultrasound Report ---
FINAL REPORT PROCEDURE: ULTRASOUND TRANSRECTAL TECHNIQUE: HISTORY: ELEVATED PSA COMPARISON: No prior studies are available for comparison. FINDINGS: Ultrasound guidance was provided for transrectal prostate biopsy. The prostate is heterogeneous in echotexture. IMPRESSION: As above.
--- NOTE | 2018-05-18 23:26 | Post Anesthesia Evaluation ---
- Post Anesthesia Evaluation Patient Participated: Yes Airway Patent: Yes Stable Respiratory Function: Yes Nausea/Vomiting: No Temp > 96.8F: No Pain Manageable: Yes Adequeate Hydration: Yes Anesthesia Complications: No
[2018-05-19 06:01] LABS: Basophils % (Auto) 0.1 % (0.0-1.8); Hematocrit 25.8 % (35.5-45.6); Hemoglobin 8.8 gm/dl (11.8-15.2); Lymphocytes # (Auto) 1.1 K/mm3 (1.2-5.4); Lymphocytes % (Auto) 10.1 % (13.4-35.0); Mean Corpuscular HGB Conc 34 % (32-34); Mean Corpuscular Hemoglobin 30 pg (28-32); Mean Corpuscular Volume 88 fl (84-94); Monocytes # (Auto) 0.5 K/mm3 (0.0-0.8); Monocytes % (Auto) 4.6 % (0.0-7.3); Platelet Count 314 K/mm3 (140-440); Red Blood Count 2.95 M/mm3 (3.65-5.03); Red Cell Distribution Width 13.4 % (13.2-15.2)
[2018-05-19 06:15] LABS: BUN/Creatinine Ratio 19; Blood Urea Nitrogen 17 mg/dL (9-20); Calcium 7.8 mg/dL (8.4-10.2); Hemolysis Index 1
[2018-05-19] MEDS: CATAPRES PO SCH ×2 (07:05→19:20)
[2018-05-19] MEDS: APRESOLINE PO SCH ×3 (07:07→23:45)
--- NOTE | 2018-05-19 07:37 | Fluoroscopy Report ---
FLUOROSCOPY RETROGRADE UROGRAPHY: HISTORY: Bladder mass. FINDINGS: Fluoroscopy was provided by radiology during retrograde urography by the urologist. 3 fluoroscopic images were captured. There is adequate filling of the right ureter and intrarenal collecting system with no filling defects or anatomic abnormalities identified. The orifice to the left ureter could not be identified 4 injection per procedural notes. Please correlate with the procedural report if needed. IMPRESSION: Unremarkable right retrograde pyelogram.
--- NOTE | 2018-05-19 08:08 | Progress Note ---
Assessment and Plan 1. Acute kidney injury: Acute kidney injury in the setting of bilateral hydronephrosis secondary to pelvic mass. S/p bilateral nephrostomy. Renal function has improved. Monitor. 2. Electrolytes: Monitor. 3. Bilateral hydronephrosis: S/p bilateral nephrostomy. S/p Cysto and drainage of abscess. 4. Uncontrolled HTN: BP is better. 5. Anemia: Iron and Folate supplement. Subjective Date of service: 05/19/18 Interval history: Patient is doing ok. Objective - Vital Signs Vital signs: Vital Signs - 12hr 05/18/18 05/18/18 05/19/18 21:36 23:41 07:05 Temperature 98.3 F Pulse Rate 82 88 83 Respiratory 16 Rate Blood Pressure 125/81 116/66 116/66 O2 Sat by Pulse 94 Oximetry - General Appearance General appearance: well-developed, well-nourished, appears stated age, other ( not in distress) EENT: ATNC, PERRL, mucous membranes moist, hearing intact, vision intact Neck: supple Respiratory: Present: Clear to Ascultation Cardiology: regular, S1S2, no murmurs Gastrointestinal: normoactive bowel sounds, no tenderness, no distended, other ( bilateral nephrostomy tubes noted) Integumentary: no rash Neurologic: no focal deficit, no asterixis, alert and oriented x3 Musculoskeletal: other (no edema) Psychiatric: mood/affect appropriate, cooperative - Lab 05/19/18 05:33 05/20/18 05:38 Most recent lab results Calcium 7.8 mg/dL (8.4-10.2) L 05/19/18 05:33 Phosphorus 3.20 mg/dL (2.5-4.5) 05/18/18 05:57 Magnesium 1.70 mg/dL (1.7-2.3) 05/18/18 05:57 Urine Creatinine 66.0 mg/dL (0.1-20.0) H 05/13/18 19:39 Urine Sodium 60 mmol/L 05/13/18 19:39 Urine Total Protein 24 mg/dL (5-11.8) H 05/13/18 19:39
[2018-05-19] MEDS: FEOSOL PO SCH ×2 (09:18→23:44)
[2018-05-19] MEDS: NORVASC PO SCH (09:18)
[2018-05-19] MEDS: LEVAQUIN 500MG/100ML 500 MG/100 ML BAG IV SCH (09:19)
[2018-05-19] MEDS: FOLVITE PO SCH (09:19)
[2018-05-19] MEDS: LOPRESSOR PO SCH ×2 (09:19→23:45)
--- NOTE | 2018-05-19 11:48 | Hem/Onc Consultation ---
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 Past History Past Medical History: No medical history Past Surgical History: No surgical history Social history: single, Lives alone, smoking (Smokes 1 pack cigarettes daily), full code, other (Alcohol once to twice a week) Family history: no significant family history Medications and Allergies Allergies Allergy/AdvReac Type Severity Reaction Status Date / Time No Known Allergies Allergy Verified 10/31/16 11:50 Home Medications Medication Instructions Recorded Confirmed Last Taken Type No Known Home Medications [No 05/13/18 05/13/18 Unknown History Reported Home Medications] Active Meds: Active Medications Amlodipine Besylate (Norvasc) 10 mg PO QDAY [facility] Last Admin: 05/19/18 09:18 Dose: 10 mg Clonidine HCl (Catapres) 0.2 mg PO Q12H [facility] Last Admin: 05/19/18 07:05 Dose: 0.2 mg Ferrous Sulfate (Feosol) 325 mg PO BID [facility] Last Admin: 05/19/18 09:18 Dose: 325 mg Folic Acid (Folvite) 1 mg PO QDAY [facility] Last Admin: 05/19/18 09:19 Dose: 1 mg Hydralazine HCl (Apresoline) 20 mg IV Q4HR PRN PRN Reason: For SBP>170 or DBP>110 Hydralazine HCl (Apresoline) 100 mg PO Q8HR [facility] Last Admin: 05/19/18 07:07 Dose: Not Given Dextrose/Sodium Chloride (D5ns) 1,000 mls @ 75 mls/hr IV DIRECT [facility] Last Admin: 05/18/18 16:55 Dose: 75 mls/hr Levofloxacin/Dextrose (Levaquin 500mg/100ml) 500 mg in 100 mls @ 100 mls/hr IV Q24HR [facility]; Protocol Last Admin: 09/06/18 09:19 Dose: 100 mls/hr Metoprolol Tartrate (Lopressor) 50 mg PO BID [facility] Last Admin: 05/19/18 09:19 Dose: 50 mg Morphine Sulfate (Morphine) 2 mg IV Q4H PRN PRN Reason: Pain, Moderate (4-6) Last Admin: 05/16/18 21:40 Dose: 2 mg Oxycodone/Acetaminophen (Percocet 5/325) 2 tab PO Q6H PRN PRN Reason: Pain, Moderate (4-6) Last Admin: 05/17/18 18:42 Dose: 2 tab Review of Systems Constitutional: weakness Ears, nose, mouth and throat: no epistaxis Cardiovascular: no chest pain Respiratory: shortness of breath (at admission) Gastrointestinal: abdominal pain (lower abdo (suprapubic) area), no vomiting, no diarrhea Genitourinary Male: other (at admission - he had low urine OP) Rectal: no bleeding Musculoskeletal: no neck pain Integumentary: no rash Neurological: no head injury, no seizures, no syncope Hematologic/Lymphatic: no easy bruising, no easy bleeding Exam - Constitutional Vitals: Last Vital Signs Temp 98.9 F 05/19/18 05:16 Pulse 83 05/19/18 07:05 Resp 18 05/19/18 05:16 BP 132/85 05/19/18 09:19 Pulse Ox 96 05/19/18 05:16 Pain Intensity (0-10): 0/10 General appearance: no acute distress Performance status: 0-fully active - EENT Eyes: PERRL ENT: clear oral mucosa Lymph node exam: negative cervical, negative supraclavicular - Neck Neck: supple - Respiratory Respiratory: negative: CTA - Gastrointestinal General gastrointestinal: Present: soft, non-tender, other (nephrostomy tubes) Rectal Exam: deferred - Musculoskeletal Musculoskeletal: strength equal bilaterally - Neurologic Neurologic: moves all extremities Results - Labs lab Results: Laboratory Results - last 24 hr 05/14/18 05/19/18 05/19/18 05:05 05:33 05:33 WBC 10.6 RBC 2.95 L Hgb 8.8 L Hct 25.8 L MCV 88 MCH 30 MCHC 34 RDW 13.4 Plt Count 314 Lymph % (Auto) 10.1 L [place] % (Auto) 4.6 Eos % (Auto) 0.0 Baso % (Auto) 0.1 Lymph # 1.1 L [place] # 0.5 Eos # 0.0 Baso # 0.0 Seg Neutrophils % 85.2 H Seg Neutrophils # 9.0 H Sodium 138 Potassium 3.9 Chloride 104.6 Carbon Dioxide 22 Anion Gap 15 BUN 17 Creatinine 0.9 Estimated GFR > 60 BUN/Creatinine Ratio 19 Glucose 132 H Calcium 7.8 L Proteinase 3 (PR3) Ab <1.0 Myeloperoxidase Ab <1.0 - Imaging and cardiology CT scan - abdomen: report reviewed Assessment and Plan #Pelvic mass Large pelvic mass between bladder and rectum with large lymph nodes, s/p cystoscopy - with large pus 340 cc - will awit path of prostate bx ( PSA not elevated ) # anemia low folate on replacement # h/o Acute kidney injury due to pelvic mass Nephrology following. Ultrasound Kidneys showed bilat hydronephrosis CT Abd shows Pelvic mass with multiple large lymph nodes Had bilateral nephrostomy tubes placed 05/14/[address] Freeman. #Acute DVT right leg - below knee No anticoagulation for now because of bilateral nephrostomy tubes. There is plan for repeat radiology # Hypertension - hospitalist following # electrolyte abn - being followed by nephrology # h/o Fever - Cystoscopy had pus Repeat radiology will help to see if the necrotic lesion has decreased after evacuation of pus by cystoscopy - if not then IR guided biopsy may be needed - Patient Problems (1) Pelvic mass in male Current Visit: Yes Status: Acute
[2018-05-19 12:31] LABS: ANA Screen, IFA Negative (Negative)
--- NOTE | 2018-05-19 17:06 | Progress Note ---
Assessment and Plan /Pelvic mass Large pelvic mass between bladder and rectum with large lyph nodes, likely malignant. Consulted Urology to evaluate, s/p cystoscopy with prostate biopsy Consulted oncology, ordered repeat abdominal us /Acute kidney injury due to pelvic mass New diagnosis, No history of renal disease Nephrology following. discussed with Dr. Bunch Ultrasound Kidneys showed bilat hydronephrosis CT Abd shows Pelvic mass with multiple large lymph nodes Had bilateral nephrostomy tubes placed 05/14/[address] Freeman. Creatinine continued to improve /Acute DVT right femoral vein. Discussed with Dr. Freeman. No anticoagulation for now because of bilateral nephrostomy tubes. need to reassess with repeat US in a week If the DVT propagates above the knee then he will need an IVC filter. Pt could likely be started on anticoagulation after 14days if no concerns of active bleeding at that time. /Hypertensive urgency, cont Clonidine, Metoprolol, Norvasc and Hydralazine. /Hyperkalemia, now resolved after Insulin, Kayexalate /Hyponatremia, Resolved /Metabolic acidosis due to MARYLOU, resolved with iv fluid /Fever, Obtained blood cultures Full code status Hospitalist Physical GEN:Not in acute distress, HEENT: Normocephalic, atraumatic, Neck: supple, No JVD Lungs:Clear to auscultation bilaterally, no crackles, no wheeze Heart:S1 and S2 reg, no murmurs, rubs or gallop Abd:soft, mild tender lower abd, suprabubic, non-distended, Normal bowel sounds , bilateral nephrostomy tubes draining Ext:Bilateral lower ext edema, no cyanosis Neuro:AAO x 3, No focal neurological signs Subjective Date of service: 05/19/18 Interval history: pt seen and examined s/p cysto with prostate biosy, discussed with Dr Varma- no prostate abscess patient denies any new issue Objective - Constitutional Vitals: Vital Signs - 12hr 05/19/18 05/19/18 05/19/18 05:16 07:05 09:15 Temperature 98.9 F Pulse Rate 80 83 Respiratory 18 Rate Blood Pressure 123/85 116/66 132/85 O2 Sat by Pulse 96 Oximetry 05/19/18 05/19/18 05/19/18 09:18 09:19 11:52 Temperature 98.9 F Pulse Rate 84 Respiratory 18 Rate Blood Pressure 132/85 132/85 124/84 O2 Sat by Pulse 98 Oximetry - Labs CBC & Chem 7: 05/19/18 05:33 05/20/18 05:38 Labs: Abnormal lab results 05/19/18 05/19/18 Range/Units 05:33 05:33 RBC 2.95 L (3.65-5.03) M/mm3 Hgb 8.8 L (11.8-15.2) gm/dl Hct 25.8 L (35.5-45.6) % Lymph % (Auto) 10.1 L (13.4-35.0) % Lymph # 1.1 L (1.2-5.4) K/mm3 Seg Neutrophils % 85.2 H (40.0-70.0) % Seg Neutrophils # 9.0 H (1.8-7.7) K/mm3 Glucose 132 H (75-100) mg/dL Calcium 7.8 L (8.4-10.2) mg/dL
[2018-05-19] MEDS: D5NS 1,000 ML IV SCH (23:44)
[2018-05-20] MEDS: APRESOLINE PO SCH ×4 (00:28→21:45)
[2018-05-20] MEDS: TYLENOL PO PRN ×2 (00:28→22:58)
[2018-05-20] MEDS: PERCOCET 5/325 PO PRN ×2 (01:49→18:48)
[2018-05-20] MEDS: CATAPRES PO SCH ×2 (06:30→18:37)
[2018-05-20 06:33] LABS: BUN/Creatinine Ratio 13; Blood Urea Nitrogen 13 mg/dL (9-20); Calcium 8.3 mg/dL (8.4-10.2); Hemolysis Index 5
--- NOTE | 2018-05-20 08:11 | Hem/Onc Progress Note ---
Assessment and Plan #Pelvic mass Large pelvic mass between bladder and rectum with large lymph nodes, s/p cystoscopy - with large pus 340 cc - will await path of prostate bx ( PSA not elevated ) repeat US ordered # anemia low folate on replacement # h/o Acute kidney injury due to pelvic mass Nephrology following. Ultrasound Kidneys showed bilat hydronephrosis CT Abd shows Pelvic mass with multiple large lymph nodes Had bilateral nephrostomy tubes placed 05/14/[address] Freeman. #Acute DVT right leg - below knee No anticoagulation for now because of bilateral nephrostomy tubes. There is plan for repeat radiology # Hypertension - hospitalist following # electrolyte abn - being followed by nephrology # h/o Fever - Cystoscopy had pus Repeat radiology will help to see if the necrotic lesion has decreased after evacuation of pus by cystoscopy It appears this all may be infective etiology - otherwise bx and more radiology may be looked into - Patient Problems (1) Pelvic mass in male Current Visit: Yes Status: Acute Subjective Date of service: 05/20/18 Interval history: has nephrostomy abdo pain better Objective - Constitutional Vitals: Last Vital Signs Temp 100.3 F H 05/19/18 22:16 Pulse 101 H 05/19/18 23:45 Resp 16 05/20/18 06:16 BP 164/99 05/20/18 06:16 Pulse Ox 94 05/19/18 22:16 Pain Intensity (0-10): denies any pain General appearance: no acute distress Performance status: 1-light work, ambulatory - EENT Eyes: PERRL ENT: clear oral mucosa Lymph node exam: negative cervical, negative supraclavicular - Neck Neck: supple - Respiratory Respiratory effort: Positive: normal Respiratory: negative: CTA - Cardiovascular Heart Sounds: Present: S1 & S2 Extremity abnormal: edema - Gastrointestinal General gastrointestinal: Present: soft Rectal Exam: deferred - Musculoskeletal Musculoskeletal: strength equal bilaterally - Neurologic Neurologic: moves all extremities - Labs Lab Results: Laboratory Results - last 24 hr 05/14/18 05/20/18 05/20/18 05:05 00:32 05:38 Sodium 135 L Potassium 3.8 Chloride 99.0 Carbon Dioxide 23 Anion Gap 17 BUN 13 Creatinine 1.0 Estimated GFR > 60 BUN/Creatinine Ratio 13 Glucose 93 Lactic Acid 1.40 Calcium 8.3 L Magnesium 1.40 L ZEUS Screen Negative
--- NOTE | 2018-05-20 08:13 | Progress Note ---
Assessment and Plan 1. Acute kidney injury: Acute kidney injury in the setting of bilateral hydronephrosis secondary to pelvic mass. S/p bilateral nephrostomy. Renal function has improved. Monitor. 2. Electrolytes: Monitor. 3. Bilateral hydronephrosis: S/p bilateral nephrostomy. S/p Cysto and drainage of abscess. 4. Uncontrolled HTN: BP is better. 5. Anemia: Iron and Folate supplement. Subjective Date of service: 05/20/18 Interval history: Patient is doing ok. Objective - Vital Signs Vital signs: Vital Signs - 12hr 05/19/18 05/19/18 05/20/18 22:16 23:45 00:28 Temperature 100.3 F H Pulse Rate 107 H 101 H Respiratory 18 16 Rate Blood Pressure 164/96 147/92 O2 Sat by Pulse 94 Oximetry 05/20/18 05/20/18 01:49 06:16 Temperature Pulse Rate Respiratory 20 16 Rate Blood Pressure 164/99 O2 Sat by Pulse Oximetry - General Appearance General appearance: well-developed, appears stated age, other (not in distress) EENT: ATNC, PERRL, mucous membranes moist, hearing intact, vision intact Neck: supple Respiratory: Present: Clear to Ascultation Cardiology: regular, S1S2, no murmurs Gastrointestinal: normoactive bowel sounds, no tenderness, other (bilateral heel , right heel wound vac) Integumentary: no rash, warm and dry Neurologic: no focal deficit, no asterixis, alert and oriented x3 Musculoskeletal: other (no edema) Psychiatric: cooperative - Lab 05/19/18 05:33 05/21/18 04:46 Most recent lab results Calcium 8.3 mg/dL (8.4-10.2) L 05/20/18 05:38 Phosphorus 3.20 mg/dL (2.5-4.5) 05/18/18 05:57 Magnesium 1.40 mg/dL (1.7-2.3) L 05/20/18 05:38 Urine Creatinine 66.0 mg/dL (0.1-20.0) H 05/13/18 19:39 Urine Sodium 60 mmol/L 05/13/18 19:39 Urine Total Protein 24 mg/dL (5-11.8) H 05/13/18 19:39
[2018-05-20] MEDS ORDERED: K-DUR PO ONE (09:30)
[2018-05-20] MEDS ORDERED: MAGNESIUM SULFATE 4GM/100ML 4 GM/100 ML BAG IV ONE (09:30)
[2018-05-20] MEDS: FOLVITE PO SCH (09:38)
[2018-05-20] MEDS: NORVASC PO SCH (09:38)
[2018-05-20] MEDS: LOPRESSOR PO SCH ×2 (09:38→21:44)
[2018-05-20] MEDS: LEVAQUIN 500MG/100ML 500 MG/100 ML BAG IV SCH (09:39)
[2018-05-20] MEDS: FEOSOL PO SCH ×2 (09:39→21:44)
--- NOTE | 2018-05-20 13:05 | Event Note ---
Date: 05/20/18 point of clarification large pus 340 cc---prostate ultrasound reveals 340cc mass (uncertain if just prostate or adjacent mass)
[2018-05-20] MEDS: D5NS 1,000 ML IV SCH (18:49)
--- NOTE | 2018-05-20 18:59 | Event Note ---
Date: 05/20/18 Pt's repeat venous duplex shows an acute dvt in a small segment of the right peroneal v. in the proximal calf without proximal extension. Repeat Duplex in 5 days. Do not recommend IVC Filter at this point. Anticoagulation on hold. Discussed with the Hospitalist.
--- NOTE | 2018-05-20 19:10 | Progress Note ---
Assessment and Plan /Pelvic mass Large pelvic mass between bladder and rectum with large lyph nodes, likely malignant. Consulted Urology to evaluate, s/p cystoscopy with prostate biopsy Consulted oncology, ordered repeat abdominal us Plan for IR /CT guided biopsy on Wednesday /Acute kidney injury due to pelvic mass New diagnosis, No history of renal disease Nephrology following. discussed with Dr. Bunch Ultrasound Kidneys showed bilat hydronephrosis CT Abd shows Pelvic mass with multiple large lymph nodes Had bilateral nephrostomy tubes placed 05/14/[address] Freeman. Creatinine continued to improve /Acute DVT right femoral vein. Discussed with Dr. Freeman. No anticoagulation for now because of bilateral nephrostomy tubes. Reassed with repeat US today showed no DVT propagation Pt could likely be started on anticoagulation after 14days if no concerns of active bleeding at that time. /Hypertensive urgency, cont Clonidine, Metoprolol, Norvasc and Hydralazine. /Hyperkalemia, now resolved after Insulin, Kayexalate /Hyponatremia, Resolved /Metabolic acidosis due to MARYLOU, resolved with iv fluid /Fever, Obtained blood cultures Full code status Hospitalist Physical GEN:Not in acute distress, HEENT: Normocephalic, atraumatic, Neck: supple, No JVD Lungs:Clear to auscultation bilaterally, no crackles, no wheeze Heart:S1 and S2 reg, no murmurs, rubs or gallop Abd:soft, mild tender lower abd, suprabubic, non-distended, Normal bowel sounds , bilateral nephrostomy tubes draining Ext:Bilateral lower ext edema, no cyanosis Neuro:AAO x 3, No focal neurological signs Subjective Date of service: 05/20/18 Interval history: Pt seen and examined s/p cysto with prostate biosy, discussed with Dr Varma- no prostate abscess patient denies any new issue repeat Venous doppler today Objective - Constitutional Vitals: Vital Signs - 12hr 05/20/18 05/20/18 05/20/18 09:28 09:38 11:22 Temperature 98.7 F Pulse Rate 109 H Respiratory 22 Rate Blood Pressure 155/94 155/94 145/87 O2 Sat by Pulse 94 Oximetry 05/20/18 05/20/18 05/20/18 14:14 17:29 18:36 Temperature 98.8 F Pulse Rate 111 H Respiratory 20 Rate Blood Pressure 134/83 134/79 132/81 O2 Sat by Pulse 96 Oximetry 05/20/18 18:37 Temperature Pulse Rate Respiratory Rate Blood Pressure 132/81 O2 Sat by Pulse Oximetry - Labs CBC & Chem 7: 05/19/18 05:33 05/21/18 04:46 Labs: Abnormal lab results 05/20/18 Range/Units 05:38 Sodium 135 L (137-145) mmol/L Calcium 8.3 L (8.4-10.2) mg/dL Magnesium 1.40 L (1.7-2.3) mg/dL
[2018-05-21] MEDS: PERCOCET 5/325 PO PRN ×2 (03:01→11:35)
[2018-05-21] MEDS: CATAPRES PO SCH ×3 (05:53→18:00)
[2018-05-21] MEDS: APRESOLINE PO SCH ×3 (05:55→22:05)
[2018-05-21 07:35] LABS: Calcium 8.1 mg/dL (8.4-10.2)
[2018-05-21] MEDS: D5NS 1,000 ML IV SCH (07:52)
[2018-05-21] MEDS: LEVAQUIN 500MG/100ML 500 MG/100 ML BAG IV SCH (11:19)
[2018-05-21] MEDS: NORVASC PO SCH (11:20)
[2018-05-21] MEDS: FEOSOL PO SCH ×2 (11:20→22:07)
[2018-05-21] MEDS: FOLVITE PO SCH (11:20)
[2018-05-21] MEDS: LOPRESSOR PO SCH ×2 (11:20→22:05)
[2018-05-21 15:59] LABS: Bacteria,Urine 1+ /HPF (Negative); Bilirubin,Urine NEG (Negative); Blood,Urine MOD (Negative); Color,Urine Amber (Yellow); Mucus,Urine 1+ /HPF
[2018-05-21 16:00] LABS: Protein,Urine >500 mg/dL (Negative)
--- NOTE | 2018-05-21 16:24 | Cat Scan Report ---
FINAL REPORT PROCEDURE: CT ABDOMEN PELVIS WO CON TECHNIQUE: Computerized axial tomography of the abdomen and pelvis was performed without intravenous contrast. This study is performed without intravascular contrast material and its sensitivity for abdominal and pelvic pathology, including neoplasms, inflammation, abscess, free fluid, thrombosis, arterial dissection and infarction, is reduced compared with a contrast enhanced study. HISTORY: Abdominal distention. COMPARISON: 05/14/2018 FINDINGS: Visualized lower thorax: Patchy bilateral lung base atelectasis or infiltrates. Prominent heart size. Liver: Normal size and attenuation. Spleen: Normal size and attenuation. Gallbladder and biliary system: Gallbladder is present. Pancreas: Limited evaluation. Adrenals: Normal. Kidneys: There has been placement of bilateral nephrostomy tubes, with resolution of previously seen hydronephrosis bilaterally. GI tract: Limited evaluation due to lack of IV and oral contrast. Small bowel loops however are dilated up to 3.7 centimeters, compatible with small-bowel obstruction or severe ileus. There is moderate to large volume of stool throughout the colon. Lymph nodes and mesentery: Limited evaluation due to lack of IV contrast. There are bilateral prominent iliac chain lymph nodes Vasculature: Normal. Bladder: Normal. Reproductive organs: Grossly unremarkable. Peritoneum: Free fluid is present adjacent to the liver. Musculoskeletal structures: There are degenerative disc changes at L5-S1. Other: Pelvic soft tissue density mass is again noted. IMPRESSION: Findings are compatible with small-bowel obstruction or severe ileus. Follow-up with oral contrast may be helpful. There has been placement of bilateral nephrostomy tubes, with resolution of previously seen hydronephrosis. Large pelvic soft tissue mass and adjacent pelvic adenopathy is again noted. Patchy bilateral lung base atelectasis or infiltrates.
--- NOTE | 2018-05-21 17:06 | Progress Note ---
Assessment and Plan /SBO - noted on CT abdoemn today - keep NPO, GS consult - NG suction /Pelvic mass Large pelvic mass between bladder and rectum with large lyph nodes, likely malignant. Consulted Urology to evaluate, s/p cystoscopy with prostate biopsy Consulted oncology, ordered repeat abdominal us Plan for IR /CT guided biopsy on Wednesday /Acute kidney injury due to pelvic mass New diagnosis, No history of renal disease Nephrology following. discussed with Dr. Bunch Ultrasound Kidneys showed bilat hydronephrosis CT Abd shows Pelvic mass with multiple large lymph nodes Had bilateral nephrostomy tubes placed 05/14/[address] Freeman. Creatinine continued to improve /Acute DVT right femoral vein. Discussed with Dr. Freeman. No anticoagulation for now because of bilateral nephrostomy tubes. Reassed with repeat venous doppler and showed no DVT propagation Pt could likely be started on anticoagulation after 14days if no concerns of active bleeding at that time. /Hypertensive urgency, cont Clonidine, Metoprolol, Norvasc and Hydralazine. /Hyperkalemia, now resolved after Insulin, Kayexalate /Hypokalemia, replete /Hyponatremia, Resolved /Metabolic acidosis due to MARYLOU, resolved with iv fluid /Fever, Obtained blood cultures Full code status Brief History: 53 y/o male admitted with c/o abd pain and urinary retention. CT abdomen showed Large pelvic mass causing urinary obstruction. bilateral nephrostomy tubes placed by IR. Developed recent vomiting, repeat CT showed dilated small bowel with SBO, possibly from extrinsic compression from pelvic mass. Pt scheduled for CT guided biopsy of pelvic mass on Wednesday. Radiological data: CT abdomen/pelvis: Findings are compatible with small-bowel obstruction or severe ileus. Follow-up with oral contrast may be helpful. There has been placement of bilateral nephrostomy tubes, with resolution of previously seen hydronephrosis. Large pelvic soft tissue mass and adjacent pelvic adenopathy is again noted. Patchy bilateral lung base atelectasis or infiltrates. Hospitalist Physical GEN:Not in acute distress, HEENT: Normocephalic, atraumatic, Neck: supple, No JVD Lungs:Clear to auscultation bilaterally, no crackles, no wheeze Heart:S1 and S2 reg, no murmurs, rubs or gallop Abd:soft, mild tender, distended, hypoactive bowel sounds, bilateral nephrostomy tubes draining Ext: Bilateral lower ext edema, no cyanosis Neuro:AAO x 3, No focal neurological signs Subjective Date of service: 05/21/18 Interval history: Pt seen and examined C/o abdominal distension and pain CT showed SBO Objective - Constitutional Vitals: Vital Signs - 12hr 05/21/18 05/21/18 05/21/18 05:43 11:15 11:17 Temperature 99.4 F 98.8 F Pulse Rate 97 H 109 H Respiratory 18 Rate Blood Pressure 115/68 124/78 Blood Pressure [Right] O2 Sat by Pulse 90 94 Oximetry 05/21/18 05/21/18 05/21/18 11:18 11:20 15:06 Temperature Pulse Rate Respiratory 18 Rate Blood Pressure 124/78 Blood Pressure 121/80 [Right] O2 Sat by Pulse Oximetry - Labs CBC & Chem 7: 05/19/18 05:33 05/21/18 04:46 Labs: Abnormal lab results 05/21/18 05/21/18 Range/Units 04:46 15:30 Sodium 135 L (137-145) mmol/L Potassium 3.5 L (3.6-5.0) mmol/L Carbon Dioxide 21 L (22-30) mmol/L BUN 22 H (9-20) mg/dL Calcium 8.1 L (8.4-10.2) mg/dL Urine WBC (Auto) 28.0 H (0.0-6.0) /HPF
--- NOTE | 2018-05-21 22:21 | Progress Note ---
Assessment and Plan Full consult dictated 53 y/o male admitted x 1 wk. secondary to abd pain and urinary retention. Large pelvic mass causing urinary obst. bilateral nephrostomy tubes since placed. recent vomiting, dilated small bowel, possibly from extrinsic compression from pelvic mass. Pt scheduled for CT guided biopsy of pelvic mass on Wednesday. NG tube now in place. Abd 2+ distended but non tender. imp as above. rec: continue ng suction. await CT guided biopsy. will discuss with you. History of present illness: Patient is 52 yo presented with bilateral leg swelling for 1 week, shortness of breath, abdominal cramps and states he has not passed urine in about 5 days. He denies chest pain. Shortness of breath worse on exertion. he does not have a Primary Care Physician, and is not on any medications. He was evaluated in ED, found to have creatinine of 14.4 He is diagnosed with acute kidney injury, hyperkalemia, hypertensive urgency. Patient started on antihypertensives. He was given Insulin and kayexalate for Hyperkalemia and will be admitted for further management. Past History Past Medical History: No medical history Past Surgical History: No surgical history Social history: single, Lives alone, smoking (Smokes 1 pack cigarettes daily), full code, other (Alcohol once to twice a week) Family history: no significant family history Radiological data: Findings are compatible with small-bowel obstruction or severe ileus. Follow-up with oral contrast may be helpful. There has been placement of bilateral nephrostomy tubes, with resolution of previously seen hydronephrosis. Large pelvic soft tissue mass and adjacent pelvic adenopathy is again noted. Patchy bilateral lung base atelectasis or infiltrates. Selected Entries 05/21/18 05/21/18 16:55 22:05 Temperature 98.3 F Pulse Rate 88 Respiratory 18 Rate Blood Pressure 115/71 Laboratory Tests 05/19/18 05/21/18 05:33 04:46 WBC 10.6 Hgb 8.8 L Hct 25.8 L Sodium 135 L Potassium 3.5 L Chloride 99.5 Carbon Dioxide 21 L Anion Gap 18 BUN 22 H Creatinine 1.5 Objective Vital Signs - 12hr 05/21/18 05/21/18 05/21/18 11:15 11:17 11:18 Temperature 98.8 F Pulse Rate 109 H Respiratory 18 Rate Blood Pressure 124/78 Blood Pressure [Right] O2 Sat by Pulse 94 Oximetry 09/08/18 09/08/18 09/08/18 11:20 15:06 16:55 Temperature 98.3 F Pulse Rate 88 Respiratory 18 Rate Blood Pressure 124/78 104/64 Blood Pressure 121/80 [Right] O2 Sat by Pulse 68 L Oximetry 05/21/18 22:05 Temperature Pulse Rate 109 H Respiratory Rate Blood Pressure 115/71 Blood Pressure [Right] O2 Sat by Pulse Oximetry - Labs 05/19/18 05:33 05/21/18 04:46 Diabetes panel 05/21/18 Range/Units 04:46 Sodium 135 L (137-145) mmol/L Potassium 3.5 L (3.6-5.0) mmol/L Chloride 99.5 (98-107) mmol/L Carbon Dioxide 21 L (22-30) mmol/L BUN 22 H (9-20) mg/dL Creatinine 1.5 (0.8-1.5) mg/dL Glucose 98 (75-100) mg/dL Calcium 8.1 L (8.4-10.2) mg/dL Calcium panel 05/21/18 Range/Units 04:46 Calcium 8.1 L (8.4-10.2) mg/dL Pituitary panel 05/21/18 Range/Units 04:46 Sodium 135 L (137-145) mmol/L Potassium 3.5 L (3.6-5.0) mmol/L Chloride 99.5 (98-107) mmol/L Carbon Dioxide 21 L (22-30) mmol/L BUN 22 H (9-20) mg/dL Creatinine 1.5 (0.8-1.5) mg/dL Glucose 98 (75-100) mg/dL Calcium 8.1 L (8.4-10.2) mg/dL Adrenal panel 05/21/18 Range/Units 04:46 Sodium 135 L (137-145) mmol/L Potassium 3.5 L (3.6-5.0) mmol/L Chloride 99.5 (98-107) mmol/L Carbon Dioxide 21 L (22-30) mmol/L BUN 22 H (9-20) mg/dL Creatinine 1.5 (0.8-1.5) mg/dL Glucose 98 (75-100) mg/dL Calcium 8.1 L (8.4-10.2) mg/dL
--- NOTE | 2018-05-21 22:50 | Consultation ---
REASON FOR CONSULTATION: Abdominal distention and vomiting, rule out bowel obstruction. HISTORY OF PRESENT ILLNESS: The patient is a 52-year-old gentleman who was admitted to the hospital approximately a week ago secondary to abdominal pain and urinary retention. CT scan of the abdomen at that time revealed a large pelvic mass causing urinary obstruction. Bilateral nephrostomy tubes have since been placed. The patient, however, did have episode of vomiting this morning and thus an NG tube was also since been placed. In reviewing the CT, dilated small bowel was noted throughout. This may possibly be due to extrinsic compression from the previously mentioned pelvic mass. The patient is scheduled for a CT-guided biopsy of the pelvic mass on Wednesday. PHYSICAL EXAMINATION: GENERAL: At this time reveals the patient to be awake, alert, cooperative, in no acute distress. NG tube as mentioned is in place. VITAL SIGNS: Show him to be afebrile with a temperature of 98.3, blood pressure is 115/71, pulse of 88, respirations of 18. ABDOMEN: Examination of the abdomen reveals to be 2+ distended, but nontender at present. LABORATORY DATA: Lab work at present includes a CBC which shows a white count of 10.6, H and H is 8.8 and 25.8. Electrolytes show sodium 135, potassium 3.5, chloride 99, BUN is 22, creatinine is down to 1.5. CT scan was done, results as previously mentioned. IMPRESSION: At this time is a 52-year-old gentleman with a large pelvic mass and surrounding adenopathy, rule out malignancy. This also may be the cause for his intestinal distention secondary to extrinsic compression from the mass. Recommend to keep the patient n.p.o. on NG suction. We will await CT-guided biopsy results and we will discuss with you. JOB# [id number] FP/NTS
--- NOTE | 2018-05-22 00:10 | Progress Note ---
Assessment and Plan 1. Acute kidney injury: Acute kidney injury in the setting of bilateral hydronephrosis secondary to pelvic mass. S/p bilateral nephrostomy. Increase in the creatinine level noted. Monitor. 2. SBO. 3. Bilateral hydronephrosis: S/p bilateral nephrostomy. S/p Cysto and drainage of abscess. 4. Uncontrolled HTN: BP is better. 5. Anemia: Iron and Folate supplement. Subjective Date of service: 05/21/18 Interval history: Patient c/o abd pain. Objective - Vital Signs Vital signs: Vital Signs - 12hr 05/21/18 05/21/18 05/21/18 15:06 16:55 22:05 Temperature 98.3 F Pulse Rate 88 109 H Respiratory 18 Rate Blood Pressure 104/64 115/71 Blood Pressure 121/80 [Right] O2 Sat by Pulse 68 L Oximetry - General Appearance General appearance: well-developed, appears stated age, other (not in distress) EENT: ATNC, PERRL, mucous membranes moist, hearing intact, vision intact Neck: supple Respiratory: Present: Clear to Ascultation Cardiology: regular, S1S2, no murmurs Gastrointestinal: normoactive bowel sounds, tenderness, distended, other ( bilateral nephrostomy tubes noted) Integumentary: no rash, warm and dry Neurologic: no focal deficit, no asterixis, alert and oriented x3 Musculoskeletal: other (no edema) Psychiatric: cooperative - Lab 05/19/18 05:33 05/21/18 04:46 Most recent lab results Calcium 8.1 mg/dL (8.4-10.2) L 05/21/18 04:46 Phosphorus 3.20 mg/dL (2.5-4.5) 05/18/18 05:57 Magnesium 2.00 mg/dL (1.7-2.3) 05/21/18 04:46 Urine Creatinine 66.0 mg/dL (0.1-20.0) H 05/13/18 19:39 Urine Sodium 60 mmol/L 05/13/18 19:39 Urine Total Protein 24 mg/dL (5-11.8) H 05/13/18 19:39
[2018-05-22] MEDS: D5NS 1,000 ML IV SCH (01:24)
[2018-05-22] MEDS: PERCOCET 5/325 PO PRN (06:15)
[2018-05-22] MEDS: APRESOLINE PO SCH ×3 (06:16→21:23)
[2018-05-22] MEDS: CATAPRES PO SCH ×2 (06:51→18:13)
[2018-05-22 07:20] LABS: Hematocrit 23.3 % (35.5-45.6); Hemoglobin 7.8 gm/dl (11.8-15.2); Mean Corpuscular HGB Conc 33 % (32-34); Mean Corpuscular Hemoglobin 29 pg (28-32); Mean Corpuscular Volume 86 fl (84-94); Platelet Count 376 K/mm3 (140-440); Red Cell Distribution Width 13.7 % (13.2-15.2)
[2018-05-22 07:40] LABS: Calcium 7.9 mg/dL (8.4-10.2)
--- NOTE | 2018-05-22 07:40 | Progress Note ---
Assessment and Plan 1. Acute kidney injury: Acute kidney injury in the setting of bilateral hydronephrosis secondary to pelvic mass. S/p bilateral nephrostomy. Creatinine continue to increase. Continue IV fluids. Monitor. 2. SBO. 3. Bilateral hydronephrosis: S/p bilateral nephrostomy. S/p Cysto and drainage of abscess. 4. HTN: BP is controlled. 5. Anemia: Iron and Folate supplement. Subjective Date of service: 05/22/18 Interval history: Patient was seen and examined at the bedside. Objective - Vital Signs Vital signs: Vital Signs - 12hr 05/21/18 05/21/18 05/21/18 22:00 22:05 23:41 Temperature 99.0 F Pulse Rate 109 H 118 H Pulse Rate [ 112 H From Monitor] Respiratory 18 Rate Blood Pressure 115/71 126/82 O2 Sat by Pulse 91 Oximetry 05/22/18 05/22/18 06:02 06:51 Temperature 101.8 F H Pulse Rate 128 H 62 Pulse Rate [ From Monitor] Respiratory 18 Rate Blood Pressure 128/81 129/80 O2 Sat by Pulse 91 Oximetry - General Appearance General appearance: well-developed, appears stated age, other (not in distress, NG tube noted) EENT: ATNC, PERRL, mucous membranes moist, hearing intact, vision intact Neck: supple Respiratory: Present: Clear to Ascultation Cardiology: regular, S1S2, no murmurs Gastrointestinal: normoactive bowel sounds, tenderness, distended, other ( bilateral nephrostomy tubes noted) Integumentary: no rash Neurologic: no focal deficit, no asterixis, alert and oriented x3 Musculoskeletal: other (no edema) Psychiatric: cooperative - Lab 05/22/18 06:49 05/22/18 06:49 Most recent lab results Calcium 7.9 mg/dL (8.4-10.2) L 05/22/18 06:49 Phosphorus 3.20 mg/dL (2.5-4.5) 05/18/18 05:57 Magnesium 2.00 mg/dL (1.7-2.3) 05/21/18 04:46 Urine Creatinine 66.0 mg/dL (0.1-20.0) H 05/13/18 19:39 Urine Sodium 60 mmol/L 05/13/18 19:39 Urine Total Protein 24 mg/dL (5-11.8) H 05/13/18 19:39
--- NOTE | 2018-05-22 09:42 | Progress Note ---
Assessment and Plan Assessment and plan: /SBO - noted on CT abdoemn today - keep NPO, GS consult - NG suction /Pelvic mass Large pelvic mass between bladder and rectum with large lyph nodes, likely malignant. 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 discussed with Dr. Bunch Ultrasound Kidneys showed bilat hydronephrosis CT Abd shows Pelvic mass with multiple large lymph nodes Had bilateral nephrostomy tubes placed 05/14/[address] Freeman. Creatinine continued to improve /Acute DVT right femoral vein. Discussed with Dr. Freeman. No anticoagulation for now because of bilateral nephrostomy tubes. Reassed with repeat venous doppler and showed no DVT propagation Pt could likely be started on anticoagulation after 14days if no concerns of active bleeding at that time. /Hypertensive urgency, cont Clonidine, Metoprolol, Norvasc and Hydralazine. /Hyperkalemia, now resolved after Insulin, Kayexalate /Hypokalemia, replete /Hyponatremia, Resolved /Metabolic acidosis due to MARYLOU, resolved with iv fluid /ACUTE BLOOD LOSS ANEMIA Monitor. /Fever, Obtained blood cultures Full code status Discussed with patient and general surgeon History Interval history: Patient seen and examined today looks uncomfortable, NGT now inplace. He denies any worsing abdominal pain. Hospitalist Physical - Physical exam Narrative exam: GEN:Not in acute distress, MARKEDLY CACHETIC HEENT: Normocephalic, atraumatic,NGT Neck: supple, No JVD Lungs:Clear to auscultation bilaterally, no crackles, no wheeze Heart:S1 and S2 reg, no murmurs, rubs or gallop Abd:soft, mild tender, distended, hypoactive bowel sounds, bilateral nephrostomy tubes draining Ext: Bilateral lower ext edema, no cyanosis Neuro:AAO x 3, No focal neurological signs - Constitutional Vitals: Temp Pulse Resp BP Pulse Ox 101.8 F H 62 18 129/80 91 05/22/18 06:02 05/22/18 06:51 05/22/18 06:02 05/22/18 06:51 05/22/18 06:02 General appearance: Present: no acute distress Results - Labs CBC & Chem 7: 05/22/18 06:49 05/22/18 06:49 Labs: Laboratory Last Values WBC 20.0 K/mm3 (4.5-11.0) H 05/22/18 06:49 RBC 2.70 M/mm3 (3.65-5.03) L 05/22/18 06:49 Hgb 7.8 gm/dl (11.8-15.2) L 05/22/18 06:49 Hct 23.3 % (35.5-45.6) L 05/22/18 06:49 MCV 86 fl (84-94) 05/22/18 06:49 MCH 29 pg (28-32) 05/22/18 06:49 MCHC 33 % (32-34) 05/22/18 06:49 RDW 13.7 % (13.2-15.2) 05/22/18 06:49 Plt Count 376 K/mm3 (140-440) 05/22/18 06:49 Lymph % (Auto) 10.1 % (13.4-35.0) L 05/19/18 05:33 Yancey % (Auto) 4.6 % (0.0-7.3) 05/19/18 05:33 Eos % (Auto) 0.0 % (0.0-4.3) 05/19/18 05:33 Baso % (Auto) 0.1 % (0.0-1.8) 05/19/18 05:33 Lymph # 1.1 K/mm3 (1.2-5.4) L 05/19/18 05:33 Yancey # 0.5 K/mm3 (0.0-0.8) 05/19/18 05:33 Eos # 0.0 K/mm3 (0.0-0.4) 05/19/18 05:33 Baso # 0.0 K/mm3 (0.0-0.1) 05/19/18 05:33 Seg Neutrophils % Tile Setter 05/22/18 06:49 Seg Neutrophils # 9.0 K/mm3 (1.8-7.7) H 05/19/18 05:33 PT 14.3 Sec. (12.2-14.9) 05/14/18 13:29 INR 1.06 (0.87-1.13) 05/14/18 13:29 APTT 38.2 Sec. (24.2-36.6) H 05/14/18 13:29 Sodium 134 mmol/L (137-145) L 05/22/18 06:49 Potassium 3.5 mmol/L (3.6-5.0) L 05/22/18 06:49 Chloride 98.3 mmol/L (98-107) 05/22/18 06:49 Carbon Dioxide 21 mmol/L (22-30) L 05/22/18 06:49 Anion Gap 18 mmol/L 05/22/18 06:49 BUN 35 mg/dL (9-20) H 05/22/18 06:49 Creatinine 1.7 mg/dL (0.8-1.5) H 05/22/18 06:49 Estimated GFR 52 ml/min 05/22/18 06:49 BUN/Creatinine Ratio 21 % 05/22/18 06:49 Glucose 107 mg/dL (75-100) H 05/22/18 06:49 POC Glucose 126 (70-105) H 05/14/18 10:56 Hemoglobin A1c 5.7 % (4-6) 05/14/18 05:05 Lactic Acid 1.40 mmol/L (0.7-2.0) 05/20/18 00:32 Calcium 7.9 mg/dL (8.4-10.2) L 05/22/18 06:49 Phosphorus 3.20 mg/dL (2.5-4.5) 05/18/18 05:57 Magnesium 2.00 mg/dL (1.7-2.3) 05/21/18 04:46 Iron 24 ug/dL (49-181) L 05/16/18 07:02 TIBC 160 mcg/dL (250-450) L 05/16/18 07:02 Ferritin 325.8 ng/mL (13.0-400.0) 05/16/18 07:02 Total Bilirubin < 0.20 mg/dL (0.1-1.2) 05/13/18 04:27 AST 15 units/L (5-40) 05/13/18 04:27 ALT 10 units/L (7-56) 05/13/18 04:27 Alkaline Phosphatase 80 units/L (35-129) 05/13/18 04:27 Total Creatine Kinase 236 units/L (55-170) H 05/14/18 05:05 Total Protein 8.1 g/dL (6.3-8.2) 05/13/18 04:27 Albumin 2.8 g/dL (3.9-5) L 05/13/18 04:27 Albumin/Globulin Ratio 0.5 % 05/13/18 04:27 Prostate Specific Ag 0.96 ng/mL (0.00-4.00) 05/14/18 13:29 Vitamin B12 359.2 pg/mL (211-911) 05/16/18 07:02 Folate 5.39 ng/mL (7.3-26.0) L 05/16/18 07:02 TSH 3.180 mlU/mL (0.270-4.200) 05/14/18 05:05 PTH Intact 65.37 pg/mL (15-65) H 05/14/18 05:05 Urine Color Maria Del Rosario (Yellow) 05/21/18 15:30 Urine Turbidity Cloudy (Clear) 05/21/18 15:30 Urine pH 5.0 (5.0-7.0) 05/21/18 15:30 Ur Specific Erwin 1.019 (1.003-1.030) 05/21/18 15:30 Urine Protein >500 mg/dL (Negative) 05/21/18 15:30 Urine Glucose (UA) Neg mg/dL (Negative) 05/21/18 15:30 Urine Ketones Neg mg/dL (Negative) 05/21/18 15:30 Urine Blood Mod (Negative) 05/21/18 15:30 Urine Nitrite Neg (Negative) 05/21/18 15:30 Urine Bilirubin Neg (Negative) 05/21/18 15:30 Urine Urobilinogen 4.0 mg/dL (<2.0) 05/21/18 15:30 Ur Leukocyte Esterase Tr (Negative) 05/21/18 15:30 Urine WBC (Auto) 28.0 /HPF (0.0-6.0) H 05/21/18 15:30 Urine RBC (Auto) 33.0 /HPF (0.0-6.0) 05/21/18 15:30 U Epithel Cells (Auto) 2.0 /HPF (0-13.0) 05/21/18 15:30 Urine Bacteria (Auto) 1+ /HPF (Negative) 05/21/18 15:30 Urine WBC Clumps Few /HPF 05/13/18 19:39 Urine Mucus 1+ /HPF 05/21/18 15:30 Urine Yeast (Budding) 2+ /HPF 05/21/18 15:30 Urine Creatinine 66.0 mg/dL (0.1-20.0) H 05/13/18 19:39 Urine Sodium 60 mmol/L 05/13/18 19:39 Urine Potassium 8.69 mmol/L 05/13/18 19:39 Urine Chloride 27.8 mmolL (110-250) L 05/13/18 19:39 Urine Total Protein 24 mg/dL (5-11.8) H 05/13/18 19:39 Urine Opiates Screen Presumptive negative 05/13/18 19:39 Urine Methadone Screen Presumptive negative 05/13/18 19:39 Ur Barbiturates Screen Presumptive negative 05/13/18 19:39 Ur Phencyclidine Scrn Presumptive negative 05/13/18 19:39 Ur Amphetamines Screen Presumptive negative 05/13/18 19:39 U Benzodiazepines Scrn Presumptive negative 05/13/18 19:39 Urine Cocaine Screen Presumptive negative 05/13/18 19:39 U Marijuana (THC) Screen Presumptive negative 05/13/18 19:39 Drugs of Abuse Note Disclamer 05/13/18 19:39 ZEUS Screen Negative (Negative) 05/14/18 05:05 Proteinase 3 (PR3) Ab <1.0 AI (<1.0) 05/14/18 05:05 Myeloperoxidase Ab <1.0 AI (<1.0) 05/14/18 05:05 Complement C3 147 mg/dL (82-185) 05/14/18 05:05 Complement C4 45 mg/dL (15-53) 05/14/18 05:05
[2018-05-22 10:17] LABS: Basophils % (Manual) 0 % (0.0-1.8); Eosinophils % (Manual) 0 % (0.0-4.3); Total Cells Counted 100
[2018-05-22 10:19] LABS: Hypochromasia 1+; Platelet Estimate Consistent w Auto
[2018-05-22] MEDS: D5W/0.45% NACL/KCL 20 MEQ 20 MEQ/1,000 ML BAG IV SCH (10:27)
[2018-05-22] MEDS: FOLVITE PO SCH (10:37)
[2018-05-22] MEDS: LEVAQUIN 500MG/100ML 500 MG/100 ML BAG IV SCH (10:37)
[2018-05-22] MEDS: LOPRESSOR PO SCH ×2 (10:38→21:16)
[2018-05-22] MEDS: NORVASC PO SCH (10:38)
[2018-05-22] MEDS: FEOSOL PO SCH ×2 (10:38→21:16)
[2018-05-22] MEDS ORDERED: NACL 0.9% 500 ML 500 ML IV ONE ×2 (12:00→15:00)
--- NOTE | 2018-05-22 12:03 | Hem/Onc Progress Note ---
Assessment and Plan #Pelvic mass Large pelvic mass between bladder and rectum with large lymph nodes, s/p cystoscopy - Prostate ultra sound - PUS - showed enlarged prostate - will await path of prostate bx ( PSA not elevated ) # CT shows bowel obstruction - NGT - conservative Rx # anemia low folate on replacement # leukocytosis on 05/22 - we will follow - likely reactive # h/o Acute kidney injury due to pelvic mass - Nephrology following. Ultrasound Kidneys showed bilat hydronephrosis CT Abd shows Pelvic mass with multiple large lymph nodes Had bilateral nephrostomy tubes placed 05/14/[address] Freeman. #Acute DVT right leg - below knee No anticoagulation for now because of bilateral nephrostomy tubes. There is plan for repeat radiology # Hypertension - hospitalist following # h/o electrolyte abn - being followed by nephrology # h/o Fever - Cystoscopy done repeat radiology shows the lesion in pelvis - for bowel obsruction surgical team is following the pt - will liase with them or IR for tissue diagnosis. - Patient Problems (1) Pelvic mass in male Current Visit: Yes Status: Acute Subjective Date of service: 05/22/18 Principal diagnosis: abdo mass Interval history: h/o abdo pain - CT shows Bowel obstruction - seen by sx team - has NGT has nephrostomy Objective - Constitutional Vitals: Last Vital Signs Temp 101.8 F H 05/22/18 06:02 Pulse 110 H 05/22/18 10:38 Resp 18 05/22/18 06:02 BP 123/75 05/22/18 10:38 Pulse Ox 91 05/22/18 06:02 Pain Intensity (0-10): 1/10 General appearance: mild distress - EENT Eyes: PERRL ENT: clear oral mucosa, other (NGT) Lymph node exam: negative cervical - Neck Neck: supple - Respiratory Respiratory effort: Positive: normal Respiratory: negative: CTA - Cardiovascular Heart Sounds: Present: S1 & S2 Extremities: No edema - Gastrointestinal General gastrointestinal: Present: soft Rectal Exam: deferred - Genitourinary Male genitourinary: Present: deferred - Labs Lab Results: Laboratory Results - last 24 hr 05/21/18 05/22/18 05/22/18 15:30 06:49 06:49 WBC 20.0 H RBC 2.70 L Hgb 7.8 L Hct 23.3 L MCV 86 MCH 29 MCHC 33 RDW 13.7 Plt Count 376 Add Manual Diff Complete Total Counted 100 Seg Neutrophils % Bindery Helper Seg Neuts % (Manual) 85.0 H Band Neutrophils % 10.0 Lymphocytes % (Manual) 4.0 L Reactive Lymphs % (Man) 0 Monocytes % (Manual) 1.0 Eosinophils % (Manual) 0 Basophils % (Manual) 0 Metamyelocytes % 0 Myelocytes % 0 Promyelocytes % 0 Blast Cells % 0 Nucleated RBC % Not Reportable Seg Neutrophils # Man 17.0 H Band Neutrophils # 2.0 Lymphocytes # (Manual) 0.8 L Abs React Lymphs (Man) 0.0 Monocytes # (Manual) 0.2 Eosinophils # (Manual) 0.0 Basophils # (Manual) 0.0 Metamyelocytes # 0.0 Myelocytes # 0.0 Promyelocytes # 0.0 Blast Cells # 0.0 WBC Morphology Not Reportable Hypersegmented Neuts Not Reportable Hyposegmented Neuts Not Reportable Hypogranular Neuts Not Reportable Smudge Cells Not Reportable Toxic Granulation Not Reportable Toxic Vacuolation Not Reportable Dohle Bodies Not Reportable Pelger-Huet Anomaly Not Reportable Mahesh Rods Not Reportable Platelet Estimate Consistent w auto Clumped Platelets Not Reportable Plt Clumps, EDTA Not Reportable Large Platelets Not Reportable Giant Platelets Not Reportable Platelet Satelliting Not Reportable Plt Morphology Comment Not Reportable RBC Morphology Not Reportable Dimorphic RBCs Not Reportable Polychromasia Not Reportable Hypochromasia 1+ Poikilocytosis Not Reportable Anisocytosis Not Reportable Microcytosis Not Reportable Macrocytosis Not Reportable Spherocytes Not Reportable Pappenheimer Bodies Not Reportable Sickle Cells Not Reportable Target Cells Not Reportable Tear Drop Cells Not Reportable Ovalocytes Not Reportable Helmet Cells Not Reportable Hernandez-Burleson Bodies Not Reportable [place] Rings Not Reportable Carmichael Cells Not Reportable Bite Cells Not Reportable Crenated Cell Not Reportable Elliptocytes Not Reportable Acanthocytes (Spur) Not Reportable Rouleaux Not Reportable Hemoglobin C Crystals Not Reportable Schistocytes Not Reportable Malaria parasites Not Reportable Mk Bodies Not Reportable Hem Pathologist Commnt No Sodium 134 L Potassium 3.5 L Chloride 98.3 Carbon Dioxide 21 L Anion Gap 18 BUN 35 H Creatinine 1.7 H Estimated GFR 52 BUN/Creatinine Ratio 21 Glucose 107 H Calcium 7.9 L Urine Color Maria Del Rosario Urine Turbidity Cloudy Urine pH 5.0 Ur Specific [place] 1.019 Urine Protein >500 Urine Glucose (UA) Neg Urine Ketones Neg Urine Blood Mod Urine Nitrite Neg Urine Bilirubin Neg Urine Urobilinogen 4.0 Ur Leukocyte Esterase Tr Urine WBC (Auto) 28.0 H Urine RBC (Auto) 33.0 U Epithel Cells (Auto) 2.0 Urine Bacteria (Auto) 1+ Urine Mucus 1+ Urine Yeast (Budding) 2+ - Imaging and cardiology CT scan - abdomen: report reviewed
--- NOTE | 2018-05-22 12:11 | Progress Note ---
Assessment and Plan Pt status quo. Abd - still abd distention but non tender No radiologist available to review CT films Awaiting to review films of pelvic mass. Will also contact hospitalist, and IR to get better informed of pts stay over the last week. keep npo awaiting path on pelvic mass biopsy Selected Entries 05/22/18 05/22/18 06:02 10:38 Temperature 101.8 F H Pulse Rate 110 H Respiratory 18 Rate Blood Pressure 123/75 Laboratory Tests 05/19/18 05/22/18 05/22/18 05:33 06:49 06:49 WBC 20.0 H Hgb 8.8 L 7.8 L Hct 25.8 L 23.3 L Sodium 134 L Potassium 3.5 L Chloride 98.3 Carbon Dioxide 21 L BUN 35 H Creatinine 1.7 H Objective Vital Signs - 12hr 05/22/18 05/22/18 05/22/18 06:02 06:51 10:38 Temperature 101.8 F H Pulse Rate 128 H 62 110 H Respiratory 18 Rate Blood Pressure 128/81 129/80 123/75 O2 Sat by Pulse 91 Oximetry - Labs 05/22/18 06:49 05/22/18 06:49 Diabetes panel 05/22/18 Range/Units 06:49 Sodium 134 L (137-145) mmol/L Potassium 3.5 L (3.6-5.0) mmol/L Chloride 98.3 (98-107) mmol/L Carbon Dioxide 21 L (22-30) mmol/L BUN 35 H (9-20) mg/dL Creatinine 1.7 H (0.8-1.5) mg/dL Glucose 107 H (75-100) mg/dL Calcium 7.9 L (8.4-10.2) mg/dL Calcium panel 05/22/18 Range/Units 06:49 Calcium 7.9 L (8.4-10.2) mg/dL Pituitary panel 05/22/18 Range/Units 06:49 Sodium 134 L (137-145) mmol/L Potassium 3.5 L (3.6-5.0) mmol/L Chloride 98.3 (98-107) mmol/L Carbon Dioxide 21 L (22-30) mmol/L BUN 35 H (9-20) mg/dL Creatinine 1.7 H (0.8-1.5) mg/dL Glucose 107 H (75-100) mg/dL Calcium 7.9 L (8.4-10.2) mg/dL Adrenal panel 05/22/18 Range/Units 06:49 Sodium 134 L (137-145) mmol/L Potassium 3.5 L (3.6-5.0) mmol/L Chloride 98.3 (98-107) mmol/L Carbon Dioxide 21 L (22-30) mmol/L BUN 35 H (9-20) mg/dL Creatinine 1.7 H (0.8-1.5) mg/dL Glucose 107 H (75-100) mg/dL Calcium 7.9 L (8.4-10.2) mg/dL
[2018-05-22] MEDS: MORPHINE IV PRN (14:02)
--- NOTE | 2018-05-22 15:19 | Gastroenterology Consultation ---
History of Present Illness - Reason for Consult Consult date: 05/22/18 abdominal distention, pelvic mass Requesting physician: LESLIE KUHN - History of Present Illness The patient is a 52-year-old man for whom consultation is now requested for intestinal obstruction and a pelvic mass. He was admitted on 05/13/2018 with a one-week history of leg swelling and was found to have acute renal failure from an obstructive uropathy. CT scan revealed a mass in the pelvis compressing the bladder and ureters and he underwent bilateral nephrostomy placements. Patient is renal failure has resolved however he has continued to have abdominal pain and distention and the picture of obstruction on follow-up noncontrasted CT which suggest a small bowel obstruction versus ileus. There is stool in the rectum but a paucity of gas in the colon. He now has a nasogastric tube in place. The patient's had a prostate biopsy and has oncology on board although the diagnosis is not yet clear. He has never had a colonoscopy. There is no prior surgical history. Past History Past Medical History: No medical history Past Surgical History: No surgical history Social history: single, Lives alone, smoking (Smokes 1 pack cigarettes daily), full code, other (Alcohol once to twice a week) Family history: no significant family history Medications and Allergies Allergies Allergy/AdvReac Type Severity Reaction Status Date / Time No Known Allergies Allergy Verified 10/31/16 11:50 Home Medications Medication Instructions Recorded Confirmed Last Taken Type No Known Home Medications [No 05/13/18 05/13/18 Unknown History Reported Home Medications] Active Meds: Active Medications Acetaminophen (Tylenol) 650 mg PO Q6H PRN PRN Reason: Pain, Mild (1-3) Last Admin: 05/20/18 22:58 Dose: 650 mg Amlodipine Besylate (Norvasc) 10 mg PO QDAY [facility] Last Admin: 05/22/18 10:38 Dose: 10 mg Clonidine HCl (Catapres) 0.2 mg PO Q12H [facility] Last Admin: 05/22/18 06:51 Dose: 0.2 mg Ferrous Sulfate (Feosol) 325 mg PO BID [facility] Last Admin: 05/22/18 10:38 Dose: Not Given Folic Acid (Folvite) 1 mg PO QDAY [facility] Last Admin: 05/22/18 10:37 Dose: 1 mg Hydralazine HCl (Apresoline) 20 mg IV Q4HR PRN PRN Reason: For SBP>170 or DBP>110 Hydralazine HCl (Apresoline) 100 mg PO Q8HR [facility] Last Admin: 05/22/18 14:06 Dose: Not Given Levofloxacin/Dextrose (Levaquin 500mg/100ml) 500 mg in 100 mls @ 100 mls/hr IV Q24HR [facility]AC; Protocol Last Admin: 05/22/18 10:37 Dose: 100 mls/hr Potassium Chloride/Dextrose/Sod Cl (D5w/0.45% Nacl/Kcl 20 Meq) 20 meq in 1,000 mls @ 75 mls/hr IV DIRECT [facility]AC Last Admin: 05/22/18 10:27 Dose: 75 mls/hr Metoprolol Tartrate (Lopressor) 50 mg PO BID [facility] Last Admin: 05/22/18 10:38 Dose: Not Given Morphine Sulfate (Morphine) 2 mg IV Q4H PRN PRN Reason: Pain, Moderate (4-6) Last Admin: 05/22/18 14:02 Dose: 2 mg Oxycodone/Acetaminophen (Percocet 5/325) 2 tab PO Q6H PRN PRN Reason: Pain, Moderate (4-6) Last Admin: 05/22/18 06:15 Dose: 2 tab Review of Systems - Review of Systems Constitutional: weight loss, no weight gain, no fever, no chills Eyes: no change in vision Ears, Nose, Throat: no decreased hearing, no difficulty swallowing, no epistaxis Breasts: deferred Cardiovascular: no chest pain, no rapid/irregular heart beat, no shortness of breath Respiratory: no cough, no shortness of breath, no wheezing Gastrointestinal: abdominal pain, constipation, no nausea, no vomiting, no diarrhea, no hematemesis, no melena, no hematochezia Rectal: no pain Male Genitourinary: deferred Musculoskeletal: no gait dysfunction, no joint pain, no muscle pain Integumentary: no rash, no pruritis, no jaundice Neurological: no head injury, no paralysis, no weakness, no parasthesias, no memory loss Psychiatric: no anxiety Endocrine: no cold intolerance, no heat intolerance Hematologic/Lymphatic: no easy bruising, no easy bleeding Allergic/Immunologic: no wheezing Exam - Constitutional Vital Signs: Temp Pulse Resp BP Pulse Ox 98.8 F 126 H 19 124/80 91 05/22/18 11:51 05/22/18 14:07 05/22/18 11:51 05/22/18 11:51 05/22/18 11:51 General appearance: no acute distress, well-nourished - EENT Eyes: PERRL ENT: hearing intact, clear oral mucosa - Neck Neck: supple, normal ROM, no masses or JVD - Respiratory Respiratory effort: normal Respiratory: bilateral: CTA - Breasts Breasts: deferred - Cardiovascular Rhythm: regular Heart Sounds: Present: S1 & S2. Absent: gallop, rub Extremities: pulses intact, No edema, normal color, Full ROM - Gastrointestinal General gastrointestinal: Present: soft, tender, distended, other (no rebound. The abdomen is tympanic. Bowel sounds are somewhat hypoactive.). Absent: hepatomegaly, splenomegaly, mass Rectal Exam: deferred - Genitourinary Male Genitourinary: deferred - Integumentary Integumentary: Present: clear, warm, dry - Neurologic Neurological: alert and oriented x3 - Psychiatric Psychiatric: appropriate mood/affect, intact judgment & insight, memory intact - Labs CBC & Chem 7: 05/22/18 06:49 05/22/18 06:49 Lab Results: Laboratory Results - last 24 hr 05/21/18 05/22/18 05/22/18 15:30 06:49 06:49 WBC 20.0 H RBC 2.70 L Hgb 7.8 L Hct 23.3 L MCV 86 MCH 29 MCHC 33 RDW 13.7 Plt Count 376 Add Manual Diff Complete Total Counted 100 Seg Neutrophils % Paste Mixing Supervisor Seg Neuts % (Manual) 85.0 H Band Neutrophils % 10.0 Lymphocytes % (Manual) 4.0 L Reactive Lymphs % (Man) 0 Monocytes % (Manual) 1.0 Eosinophils % (Manual) 0 Basophils % (Manual) 0 Metamyelocytes % 0 Myelocytes % 0 Promyelocytes % 0 Blast Cells % 0 Nucleated RBC % Not Reportable Seg Neutrophils # Man 17.0 H Band Neutrophils # 2.0 Lymphocytes # (Manual) 0.8 L Abs React Lymphs (Man) 0.0 Monocytes # (Manual) 0.2 Eosinophils # (Manual) 0.0 Basophils # (Manual) 0.0 Metamyelocytes # 0.0 Myelocytes # 0.0 Promyelocytes # 0.0 Blast Cells # 0.0 WBC Morphology Not Reportable Hypersegmented Neuts Not Reportable Hyposegmented Neuts Not Reportable Hypogranular Neuts Not Reportable Smudge Cells Not Reportable Toxic Granulation Not Reportable Toxic Vacuolation Not Reportable Dohle Bodies Not Reportable Pelger-Huet Anomaly Not Reportable Mahesh Rods Not Reportable Platelet Estimate Consistent w auto Clumped Platelets Not Reportable Plt Clumps, EDTA Not Reportable Large Platelets Not Reportable Giant Platelets Not Reportable Platelet Satelliting Not Reportable Plt Morphology Comment Not Reportable RBC Morphology Not Reportable Dimorphic RBCs Not Reportable Polychromasia Not Reportable Hypochromasia 1+ Poikilocytosis Not Reportable Anisocytosis Not Reportable Microcytosis Not Reportable Macrocytosis Not Reportable Spherocytes Not Reportable Pappenheimer Bodies Not Reportable Sickle Cells Not Reportable Target Cells Not Reportable Tear Drop Cells Not Reportable Ovalocytes Not Reportable Helmet Cells Not Reportable Hernandez-Nezperce Bodies Not Reportable [place] Rings Not Reportable [place]ory Cells Not Reportable Bite Cells Not Reportable Crenated Cell Not Reportable Elliptocytes Not Reportable Acanthocytes (Spur) Not Reportable Rouleaux Not Reportable Hemoglobin C Crystals Not Reportable Schistocytes Not Reportable Malaria parasites Not Reportable Mk Bodies Not Reportable Hem Pathologist Commnt No Sodium 134 L Potassium 3.5 L Chloride 98.3 Carbon Dioxide 21 L Anion Gap 18 BUN 35 H Creatinine 1.7 H Estimated GFR 52 BUN/Creatinine Ratio 21 Glucose 107 H Calcium 7.9 L Urine Color Maria Del Rosario Urine Turbidity Cloudy Urine pH 5.0 Ur Specific [place] 1.019 Urine Protein >500 Urine Glucose (UA) Neg Urine Ketones Neg Urine Blood Mod Urine Nitrite Neg Urine Bilirubin Neg Urine Urobilinogen 4.0 Ur Leukocyte Esterase Tr Urine WBC (Auto) 28.0 H Urine RBC (Auto) 33.0 U Epithel Cells (Auto) 2.0 Urine Bacteria (Auto) 1+ Urine Mucus 1+ Urine Yeast (Budding) 2+ Blood Type Antibody Screen Crossmatch 05/22/18 11:23 WBC RBC Hgb Hct MCV MCH MCHC RDW Plt Count Add Manual Diff Total Counted Seg Neutrophils % Seg Neuts % (Manual) Band Neutrophils % Lymphocytes % (Manual) Reactive Lymphs % (Man) Monocytes % (Manual) Eosinophils % (Manual) Basophils % (Manual) Metamyelocytes % Myelocytes % Promyelocytes % Blast Cells % Nucleated RBC % Seg Neutrophils # Man Band Neutrophils # Lymphocytes # (Manual) Abs React Lymphs (Man) Monocytes # (Manual) Eosinophils # (Manual) Basophils # (Manual) Metamyelocytes # Myelocytes # Promyelocytes # Blast Cells # WBC Morphology Hypersegmented Neuts Hyposegmented Neuts Hypogranular Neuts Smudge Cells Toxic Granulation Toxic Vacuolation Dohle Bodies Pelger-Huet Anomaly Mahesh Rods Platelet Estimate Clumped Platelets Plt Clumps, EDTA Large Platelets Giant Platelets Platelet Satelliting Plt Morphology Comment RBC Morphology Dimorphic RBCs Polychromasia Hypochromasia Poikilocytosis Anisocytosis Microcytosis Macrocytosis Spherocytes Pappenheimer Bodies Sickle Cells Target Cells Tear Drop Cells Ovalocytes Helmet Cells Hernandez-Nezperce Bodies [place] Rings [place] Cells Bite Cells Crenated Cell Elliptocytes Acanthocytes (Spur) Rouleaux Hemoglobin C Crystals Schistocytes Malaria parasites Mk Bodies Hem Pathologist Commnt Sodium Potassium Chloride Carbon Dioxide Anion Gap BUN Creatinine Estimated GFR BUN/Creatinine Ratio Glucose Calcium Urine Color Urine Turbidity Urine pH Ur Specific [place] Urine Protein Urine Glucose (UA) Urine Ketones Urine Blood Urine Nitrite Urine Bilirubin Urine Urobilinogen Ur Leukocyte Esterase Urine WBC (Auto) Urine RBC (Auto) U Epithel Cells (Auto) Urine Bacteria (Auto) Urine Mucus Urine Yeast (Budding) Blood Type O POSITIVE Antibody Screen Negative Crossmatch See Detail - Imaging X-ray: report reviewed, image reviewed Assessment and Plan - Patient Problems (1) Intestinal obstruction Current Visit: Yes Status: Acute Plan to address problem: The patient may have an intestinal malignancy and has a pelvic mass which is yet to be defined. CT-guided biopsy is apparently pending and we'll await the study. Endoscopy is relatively contraindicated at this time because of the obstruction. Nasogastric suction will continue and follow-up x-rays will be planned. Consider an HIV study. Thank you very much for asking me to see Mr. Dinh in consultation. (2) Acute renal failure Current Visit: Yes Status: Acute Qualifiers: Acute renal failure type: unspecified Qualified Code(s): N17.9 - Acute kidney failure, unspecified (3) Pelvic mass in male Current Visit: Yes Status: Acute
--- NOTE | 2018-05-22 15:30 | Progress Note ---
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 Can potentially start anticoagulation in the next few days unless further intervention for his pelvic abscesses required. At this point continue to avoid IVC filter unless major surgery is required Subjective Date of service: 05/22/18 Interval history: Head drainage of pelvic abscess. Feels marginally better. States leg swelling is diminished. No chest pain shortness of breath. Complains of sore throat from NG tube. Objective - Exam Narrative Exam: Recent PET scan shows only calf vein thrombus. No propagation. Legs are nontender without significant swelling. - Constitutional Vitals: Vital Signs - 12hr 05/22/18 05/22/18 05/22/18 06:02 06:51 10:38 Temperature 101.8 F H Pulse Rate 128 H 62 110 H Respiratory 18 Rate Blood Pressure 128/81 129/80 123/75 O2 Sat by Pulse 91 Oximetry 05/22/18 05/22/18 11:51 14:07 Temperature 98.8 F Pulse Rate 119 H 126 H Respiratory 19 Rate Blood Pressure 124/80 O2 Sat by Pulse 91 Oximetry - Labs CBC & Chem 7: 05/22/18 06:49 05/22/18 06:49 Labs: Abnormal lab results 05/21/18 05/22/18 05/22/18 Range/Units 15:30 06:49 06:49 WBC 20.0 H (4.5-11.0) K/mm3 RBC 2.70 L (3.65-5.03) M/mm3 Hgb 7.8 L (11.8-15.2) gm/dl Hct 23.3 L (35.5-45.6) % Seg Neuts % (Manual) 85.0 H (40.0-70.0) % Lymphocytes % (Manual) 4.0 L (13.4-35.0) % Seg Neutrophils # Man 17.0 H (1.8-7.7) K/mm3 Lymphocytes # (Manual) 0.8 L (1.2-5.4) K/mm3 Sodium 134 L (137-145) mmol/L Potassium 3.5 L (3.6-5.0) mmol/L Carbon Dioxide 21 L (22-30) mmol/L BUN 35 H (9-20) mg/dL Creatinine 1.7 H (0.8-1.5) mg/dL Glucose 107 H (75-100) mg/dL Calcium 7.9 L (8.4-10.2) mg/dL Urine WBC (Auto) 28.0 H (0.0-6.0) /HPF Crossmatch 05/22/18 Range/Units 11:23 WBC (4.5-11.0) K/mm3 RBC (3.65-5.03) M/mm3 Hgb (11.8-15.2) gm/dl Hct (35.5-45.6) % Seg Neuts % (Manual) (40.0-70.0) % Lymphocytes % (Manual) (13.4-35.0) % Seg Neutrophils # Man (1.8-7.7) K/mm3 Lymphocytes # (Manual) (1.2-5.4) K/mm3 Sodium (137-145) mmol/L Potassium (3.6-5.0) mmol/L Carbon Dioxide (22-30) mmol/L BUN (9-20) mg/dL Creatinine (0.8-1.5) mg/dL Glucose (75-100) mg/dL Calcium (8.4-10.2) mg/dL Urine WBC (Auto) (0.0-6.0) /HPF Crossmatch See Detail
--- NOTE | 2018-05-22 15:30 | Cat Scan Report ---
FINAL REPORT PROCEDURE: CT CHEST WO CON TECHNIQUE: Computerized axial tomography of the chest was performed without contrast material. This study is performed without intravenous contrast and the sensitivity for pathology, including neoplasms, adenopathy, abscess, pulmonary embolism and aortic dissection, is reduced. HISTORY: metastatic disease COMPARISON: No prior studies are available for comparison. TECHNICAL QUALITY: Satisfactory. FINDINGS: Heart and pericardium: Heart is prominent size. There is pericardial fluid present. Thoracic aorta: Normal caliber. Pulmonary vasculature: Normal caliber aorta. Lymph nodes: Limited evaluation due to lack of IV contrast. Probable enlarged subcarinal lymph node, measuring 17 millimeters short axis. Bilateral axillary lymph nodes measure up to 12 millimeters in short axis Lungs: Bilateral lung base airspace consolidation could be related to airspace consolidation or atelectasis. Small bulla are seen in bilateral lung apices. Central airways are patent. Pleural space: No pneumothorax. Trace amount of bilateral pleural fluid is present. Musculoskeletal structures: No significant abnormality. Upper abdominal structures: Small amount of free fluid is present. There is a right nephrostomy . IMPRESSION: Bilateral lung base airspace consolidation may be related to infectious infiltrates or atelectasis. Trace bilateral pleural fluid. Limited evaluation of mediastinal lymph nodes due to lack of IV contrast. There is probable subcarinal lymphadenopathy. Bilateral axillary lymphadenopathy.
[2018-05-22] MEDS: TYLENOL PO PRN (16:26)
[2018-05-22] MEDS ORDERED: VANCOMYCIN/NS 1 GM/250 ML 1 GM/250 ML BAG IV ONE (18:00)
[2018-05-22] MEDS: VANCOMYCIN/NS 1 GM/250 ML 1 GM/250 ML BAG IV SCH (21:15)
[2018-05-23] MEDS: MORPHINE IV PRN ×2 (00:41→09:26)
[2018-05-23] MEDS: TYLENOL PO PRN ×2 (00:41→11:15)
[2018-05-23] MEDS: APRESOLINE PO SCH ×3 (05:35→22:14)
[2018-05-23] MEDS: CATAPRES PO SCH ×2 (05:35→18:07)
--- NOTE | 2018-05-23 07:49 | Ultrasound Report ---
ULTRASOUND ABDOMEN LIMITED History: Abnormal CAT scan. Pelvic mass or abscess. Bilateral hydronephrosis. Technique: Transabdominal ultrasound with color Doppler interrogation. Findings: This examination is just presented to me for interpretation. Noncontrast CT dated 05/14/18 was reviewed which demonstrated a large complex mass like lesion with cavitation within the pelvis between the bladder and the rectum. This complex mass is also demonstrated on ultrasound measuring up to 10 x 12 x 8 cm. The mass is partially cystic with trace blood flow on color Doppler interrogation. The mass compresses the bladder anteriorly and displaces bowel loops in the pelvis. Trace pelvic ascites is noted. Impression: Large complex mass in the pelvis with internal cystic change or necrosis. This could represent a neoplasm or an abscess although I favor a neoplasm. See above.
--- NOTE | 2018-05-23 08:45 | Hem/Onc Progress Note ---
Assessment and Plan #Pelvic mass Large pelvic mass between bladder and rectum with large lymph nodes, s/p cystoscopy - Prostate ultra sound - PUS - showed enlarged prostate - will await path of prostate bx ( PSA not elevated ) # CT shows bowel obstruction - NGT - conservative Rx # anemia low folate on replacement # leukocytosis on 05/22 - we will follow - likely reactive # h/o Acute kidney injury due to pelvic mass - Nephrology following. Ultrasound Kidneys showed bilat hydronephrosis CT Abd shows Pelvic mass with multiple large lymph nodes Had bilateral nephrostomy tubes placed 05/14/[address] Freeman. #Acute DVT right leg - below knee No anticoagulation for now because of bilateral nephrostomy tubes. There is plan for repeat radiology # Hypertension - hospitalist following # h/o electrolyte abn - being followed by nephrology # h/o Fever - Cystoscopy done repeat radiology shows the lesion in pelvis - for bowel obsruction surgical team is following the pt will await final path report of the urological biopsy - Patient Problems (1) Pelvic mass in male Current Visit: Yes Status: Acute Subjective Date of service: 05/23/18 Principal diagnosis: pelvic mass Interval history: h/o abdo pain - CT showed Bowel obstruction - seen by sx team - has NGT and NPO has nephrostomy says minimally ambulatory Objective - Constitutional Vitals: Last Vital Signs Temp 97.7 F 05/23/18 05:35 Pulse 121 H 05/23/18 05:35 Resp 20 05/23/18 05:35 BP 144/98 05/23/18 05:35 Pulse Ox 91 05/23/18 05:35 Pain Intensity (0-10): denies any pain General appearance: no acute distress - EENT Eyes: PERRL ENT: other (NGT) Lymph node exam: negative cervical, negative supraclavicular - Neck Neck: supple - Respiratory Respiratory effort: Positive: normal Respiratory: negative: CTA - Cardiovascular Heart Sounds: Present: S1 & S2 Extremities: No edema - Gastrointestinal General gastrointestinal: Present: soft Rectal Exam: deferred - Genitourinary Male genitourinary: Present: deferred - Integumentary Integumentary: clear - Neurologic Neurologic: moves all extremities - Labs Lab Results: Laboratory Results - last 24 hr 05/22/18 05/22/18 05/22/18 06:49 11:23 19:30 Add Manual Diff Complete Total Counted 100 Seg Neuts % (Manual) 85.0 H Band Neutrophils % 10.0 Lymphocytes % (Manual) 4.0 L Reactive Lymphs % (Man) 0 Monocytes % (Manual) 1.0 Eosinophils % (Manual) 0 Basophils % (Manual) 0 Metamyelocytes % 0 Myelocytes % 0 Promyelocytes % 0 Blast Cells % 0 Nucleated RBC % Not Reportable Seg Neutrophils # Man 17.0 H Band Neutrophils # 2.0 Lymphocytes # (Manual) 0.8 L Abs React Lymphs (Man) 0.0 Monocytes # (Manual) 0.2 Eosinophils # (Manual) 0.0 Basophils # (Manual) 0.0 Metamyelocytes # 0.0 Myelocytes # 0.0 Promyelocytes # 0.0 Blast Cells # 0.0 WBC Morphology Not Reportable Hypersegmented Neuts Not Reportable Hyposegmented Neuts Not Reportable Hypogranular Neuts Not Reportable Smudge Cells Not Reportable Toxic Granulation Not Reportable Toxic Vacuolation Not Reportable Dohle Bodies Not Reportable Pelger-Huet Anomaly Not Reportable Mahesh Rods Not Reportable Platelet Estimate Consistent w auto Clumped Platelets Not Reportable Plt Clumps, EDTA Not Reportable Large Platelets Not Reportable Giant Platelets Not Reportable Platelet Satelliting Not Reportable Plt Morphology Comment Not Reportable RBC Morphology Not Reportable Dimorphic RBCs Not Reportable Polychromasia Not Reportable Hypochromasia 1+ Poikilocytosis Not Reportable Anisocytosis Not Reportable Microcytosis Not Reportable Macrocytosis Not Reportable Spherocytes Not Reportable Pappenheimer Bodies Not Reportable Sickle Cells Not Reportable Target Cells Not Reportable Tear Drop Cells Not Reportable Ovalocytes Not Reportable Helmet Cells Not Reportable Hernandez-Northford Bodies Not Reportable Howe Rings Not Reportable Nory Cells Not Reportable Bite Cells Not Reportable Crenated Cell Not Reportable Elliptocytes Not Reportable Acanthocytes (Spur) Not Reportable Rouleaux Not Reportable Hemoglobin C Crystals Not Reportable Schistocytes Not Reportable Malaria parasites Not Reportable Mk Bodies Not Reportable Hem Pathologist Commnt No Lactic Acid 1.10 Blood Type O POSITIVE Antibody Screen Negative Crossmatch See Detail - Imaging and cardiology CT scan - chest: report reviewed
[2018-05-23] MEDS ORDERED: SUBLIMAZE IV ONE (09:03)
[2018-05-23] MEDS ORDERED: VERSED IV ONE ×2 (09:03→10:10)
--- NOTE | 2018-05-23 09:06 | Progress Note ---
Assessment and Plan 1. Acute kidney injury: Acute kidney injury in the setting of bilateral hydronephrosis secondary to pelvic mass. S/p bilateral nephrostomy. Creatinine level is better today. Continue IV fluids. Monitor. 2. SBO. 3. Bilateral hydronephrosis: S/p bilateral nephrostomy. S/p Cysto and drainage of abscess. 4. HTN: BP is controlled. 5. Anemia: Iron and Folate supplement. Subjective Date of service: 05/23/18 Principal diagnosis: pelvic mass Interval history: Patient was seen and examined at the bedside. Doing ok. Objective - Vital Signs Vital signs: Vital Signs - 12hr 05/22/18 05/22/18 05/23/18 23:21 23:36 00:06 Temperature 99.1 F 100.7 F H 100.0 F H Pulse Rate 126 H 128 H 128 H Respiratory 20 20 20 Rate Blood Pressure 142/90 160/98 159/95 O2 Sat by Pulse Oximetry 05/23/18 05/23/18 05/23/18 00:36 01:02 01:06 Temperature 100.0 F H 99.8 F H 98.2 F Pulse Rate 129 H 128 H 123 H Respiratory 20 20 20 Rate Blood Pressure 150/89 155/98 148/91 O2 Sat by Pulse Oximetry 05/23/18 05:35 Temperature 97.7 F Pulse Rate 121 H Respiratory 20 Rate Blood Pressure 144/98 O2 Sat by Pulse 91 Oximetry - General Appearance General appearance: well-developed, appears stated age, other (not in distress, NG tube noted) EENT: ATNC, PERRL, mucous membranes dry, hearing intact Neck: no JVD, supple Respiratory: Present: Clear to Ascultation Cardiology: regular, S1S2, no murmurs Gastrointestinal: normoactive bowel sounds, no tenderness, distended, other ( bilateral nephrostomy tubes noted) Integumentary: no rash, warm and dry Neurologic: no focal deficit, no asterixis, alert and oriented x3 Musculoskeletal: other (no edema) Psychiatric: cooperative - Lab 05/23/18 09:03 05/23/18 09:03 Most recent lab results Calcium 7.9 mg/dL (8.4-10.2) L 05/22/18 06:49 Phosphorus 3.20 mg/dL (2.5-4.5) 05/18/18 05:57 Magnesium 2.00 mg/dL (1.7-2.3) 05/21/18 04:46 Urine Creatinine 66.0 mg/dL (0.1-20.0) H 05/13/18 19:39 Urine Sodium 60 mmol/L 05/13/18 19:39 Urine Total Protein 24 mg/dL (5-11.8) H 05/13/18 19:39
[2018-05-23 09:22] LABS: Hematocrit 31.1 % (35.5-45.6); Hemoglobin 10.4 gm/dl (11.8-15.2); Mean Corpuscular HGB Conc 33 % (32-34); Mean Corpuscular Hemoglobin 29 pg (28-32); Mean Corpuscular Volume 87 fl (84-94); Platelet Count 416 K/mm3 (140-440); Red Blood Count 3.57 M/mm3 (3.65-5.03); Red Cell Distribution Width 13.9 % (13.2-15.2)
[2018-05-23 09:45] LABS: INR 1.43 (0.87-1.13)
[2018-05-23 09:47] LABS: BUN/Creatinine Ratio 30; Blood Urea Nitrogen 36 mg/dL (9-20); Calcium 8.4 mg/dL (8.4-10.2); Hemolysis Index 6
[2018-05-23] MEDS ORDERED: SUBLIMAZE ONE (10:10)
--- NOTE | 2018-05-23 10:49 | Gastroenterology Progress Note ---
<EVENSBRITENYCEE Guevara - Last Filed: 05/23/18 10:56> Assessment and Plan 1.intestinal obstruction 2.pelvic mass 3.ARF- U/S showed bilat hydronephrosis -s/p bilateral nephrostomy tubes- nephrology following -CT showed plevic mass with multiple large lymph nodes and bowel obstruction -surgery following -s/p cystoscopy with prostate bx results pending -CT-guided bx pending -no plans for endoscopy at this time (contraindicated 2/2 obstruction) -Keep NPO -continue NG to LIS -follow up x-rays -continue supportive care Subjective Date of service: 05/23/18 Principal diagnosis: pelvic mass Interval history: Patient w/o acute distress. Reports continued abd discomfort. No N/v. Objective - Constitutional Vitals: Temp Pulse Resp BP Pulse Ox 98.4 F 133 H 20 150/97 92 05/23/18 09:21 05/23/18 09:21 05/23/18 09:21 05/23/18 09:21 05/23/18 09:21 General appearance: no acute distress, other (thin appearing) - EENT ENT: other (+NGT) - Respiratory Respiratory: bilateral: CTA (anterior) - Cardiovascular Rhythm: other (tachycardic) - Gastrointestinal General gastrointestinal: Present: soft, non-tender, distended, hypoactive bowel sounds - Neurologic Neurological: alert and oriented x3 - Labs CBC & Chem 7: 05/23/18 09:03 05/23/18 09:03 Labs: Laboratory Results - last 24 hr 05/22/18 05/22/18 05/23/18 11:23 19:30 09:03 WBC RBC Hgb Hct MCV MCH MCHC RDW Plt Count PT INR APTT Sodium 142 D Potassium 3.9 Chloride 104.8 Carbon Dioxide 22 Anion Gap 19 BUN 36 H Creatinine 1.2 Estimated GFR > 60 BUN/Creatinine Ratio 30 Glucose 98 Lactic Acid 1.10 Calcium 8.4 Phosphorus 4.20 Magnesium 2.50 H Blood Type O POSITIVE Antibody Screen Negative Crossmatch See Detail 05/23/18 05/23/18 09:03 09:03 WBC 26.3 H RBC 3.57 L Hgb 10.4 L Hct 31.1 L D MCV 87 MCH 29 MCHC 33 RDW 13.9 Plt Count 416 PT 18.3 H INR 1.43 H APTT 40.0 H Sodium Potassium Chloride Carbon Dioxide Anion Gap BUN Creatinine Estimated GFR BUN/Creatinine Ratio Glucose Lactic Acid Calcium Phosphorus Magnesium Blood Type Antibody Screen Crossmatch <HANNAH SHIPLEY - Last Filed: 05/23/18 11:50> Assessment and Plan - Patient Problems (1) Intestinal obstruction Current Visit: Yes Status: Acute Plan to address problem: The patient was seen and examined. He is passing some stool and obstruction has improve a bit. Await results of prostate biopsy. May consider flex sig as obstruction resolves. Hannah Shipley MD (2) Acute renal failure Current Visit: Yes Status: Acute Qualifiers: Acute renal failure type: unspecified Qualified Code(s): N17.9 - Acute kidney failure, unspecified (3) Pelvic mass in male Current Visit: Yes Status: Acute Objective - Constitutional Vitals: Temp Pulse Resp BP Pulse Ox 98.4 F 133 H 20 150/97 92 05/23/18 09:21 05/23/18 09:21 05/23/18 09:21 05/23/18 09:21 05/23/18 09:21 - Labs CBC & Chem 7: 05/23/18 09:03 05/23/18 09:03 Labs: Laboratory Results - last 24 hr 05/22/18 05/22/18 05/23/18 11:23 19:30 09:03 WBC RBC Hgb Hct MCV MCH MCHC RDW Plt Count PT INR APTT Sodium 142 D Potassium 3.9 Chloride 104.8 Carbon Dioxide 22 Anion Gap 19 BUN 36 H Creatinine 1.2 Estimated GFR > 60 BUN/Creatinine Ratio 30 Glucose 98 Lactic Acid 1.10 Calcium 8.4 Phosphorus 4.20 Magnesium 2.50 H Blood Type O POSITIVE Antibody Screen Negative Crossmatch See Detail 05/23/18 05/23/18 09:03 09:03 WBC 26.3 H RBC 3.57 L Hgb 10.4 L Hct 31.1 L D MCV 87 MCH 29 MCHC 33 RDW 13.9 Plt Count 416 PT 18.3 H INR 1.43 H APTT 40.0 H Sodium Potassium Chloride Carbon Dioxide Anion Gap BUN Creatinine Estimated GFR BUN/Creatinine Ratio Glucose Lactic Acid Calcium Phosphorus Magnesium Blood Type Antibody Screen Crossmatch
[2018-05-23] MEDS: LOPRESSOR PO SCH ×2 (11:15→22:15)
[2018-05-23] MEDS: NORVASC PO SCH (11:15)
[2018-05-23] MEDS: D5W/0.45% NACL/KCL 20 MEQ 20 MEQ/1,000 ML BAG IV SCH (11:16)
[2018-05-23] MEDS: LEVAQUIN 500MG/100ML 500 MG/100 ML BAG IV SCH (11:16)
[2018-05-23] MEDS: FOLVITE PO SCH (11:20)
[2018-05-23] MEDS: FEOSOL PO SCH ×2 (11:20→22:14)
--- NOTE | 2018-05-23 12:21 | Progress Note ---
Assessment and Plan Discussed CT with Dr. Noel. Dr. Noel was scheduled to proceed with pelvic mass biopsy today when discussed case with pathology. Pathology already has enough tissue biopsy and diagnosis of bladder ca has been made Abd exam status quo Pt large pelvic mass (bladder CA?) would recommend that pt be transferred to tertiary institution unless feels that they can address this mass here. also consider beginning TPN as pt will not be able to eat until this mass is addressed as it is causing extrinsic distal bowel obstruction Selected Entries 05/23/18 09:21 Temperature 98.4 F Pulse Rate 133 H Respiratory 20 Rate Blood Pressure 150/97 Laboratory Tests 05/23/18 09:03 WBC 26.3 H Hgb 10.4 L Hct 31.1 L D Objective Vital Signs - 12hr 05/23/18 05/23/18 05/23/18 00:36 01:02 01:06 Temperature 100.0 F H 99.8 F H 98.2 F Pulse Rate 129 H 128 H 123 H Respiratory 20 20 20 Rate Blood Pressure 150/89 155/98 148/91 O2 Sat by Pulse Oximetry 05/23/18 05/23/18 05:35 09:21 Temperature 97.7 F 98.4 F Pulse Rate 121 H 133 H Respiratory 20 20 Rate Blood Pressure 144/98 150/97 O2 Sat by Pulse 91 92 Oximetry - Labs 05/23/18 09:03 05/23/18 09:03 Diabetes panel 05/23/18 Range/Units 09:03 Sodium 142 D (137-145) mmol/L Potassium 3.9 (3.6-5.0) mmol/L Chloride 104.8 (98-107) mmol/L Carbon Dioxide 22 (22-30) mmol/L BUN 36 H (9-20) mg/dL Creatinine 1.2 (0.8-1.5) mg/dL Glucose 98 (75-100) mg/dL Calcium 8.4 (8.4-10.2) mg/dL Calcium panel 05/23/18 Range/Units 09:03 Calcium 8.4 (8.4-10.2) mg/dL Phosphorus 4.20 (2.5-4.5) mg/dL Pituitary panel 05/23/18 Range/Units 09:03 Sodium 142 D (137-145) mmol/L Potassium 3.9 (3.6-5.0) mmol/L Chloride 104.8 (98-107) mmol/L Carbon Dioxide 22 (22-30) mmol/L BUN 36 H (9-20) mg/dL Creatinine 1.2 (0.8-1.5) mg/dL Glucose 98 (75-100) mg/dL Calcium 8.4 (8.4-10.2) mg/dL Adrenal panel 05/23/18 Range/Units 09:03 Sodium 142 D (137-145) mmol/L Potassium 3.9 (3.6-5.0) mmol/L Chloride 104.8 (98-107) mmol/L Carbon Dioxide 22 (22-30) mmol/L BUN 36 H (9-20) mg/dL Creatinine 1.2 (0.8-1.5) mg/dL Glucose 98 (75-100) mg/dL Calcium 8.4 (8.4-10.2) mg/dL
--- NOTE | 2018-05-23 13:09 | Progress Note ---
Subjective Date of service: 05/23/18 Principal diagnosis: pelvic mass Objective - Constitutional Vitals: Vital Signs - 12hr 05/23/18 05/23/18 05/23/18 05:35 09:21 12:48 Temperature 97.7 F 98.4 F 98.5 F Pulse Rate 121 H 133 H 116 H Respiratory 20 20 20 Rate Blood Pressure 144/98 150/97 146/98 O2 Sat by Pulse 91 92 92 Oximetry - Labs CBC & Chem 7: 05/23/18 09:03 05/23/18 09:03 Labs: Abnormal lab results 05/22/18 05/23/18 05/23/18 Range/Units 11:23 09:03 09:03 WBC 26.3 H (4.5-11.0) K/mm3 RBC 3.57 L (3.65-5.03) M/mm3 Hgb 10.4 L (11.8-15.2) gm/dl Hct 31.1 L D (35.5-45.6) % PT (12.2-14.9) Sec. INR (0.87-1.13) APTT (24.2-36.6) Sec. BUN 36 H (9-20) mg/dL Magnesium 2.50 H (1.7-2.3) mg/dL Crossmatch See Detail 05/23/18 Range/Units 09:03 WBC (4.5-11.0) K/mm3 RBC (3.65-5.03) M/mm3 Hgb (11.8-15.2) gm/dl Hct (35.5-45.6) % PT 18.3 H (12.2-14.9) Sec. INR 1.43 H (0.87-1.13) APTT 40.0 H (24.2-36.6) Sec. BUN (9-20) mg/dL Magnesium (1.7-2.3) mg/dL Crossmatch
--- NOTE | 2018-05-23 14:57 | Progress Note ---
Assessment and Plan Assessment and plan: The patient is a 52 YO AAM with medical history significant for Uncontrolled HTN who came to the ER for evaluation of bilateral leg swelling, SOB and no urine output. He developed lower abdominal pain about 3 weeks ago, which was sharp, intermittent and not radiating. He noticed bilateral leg swelling about a week ago. He stopped making urine for the past 5 days. Patient also reports fatigue and RIVERA. Usually he takes Aleve every other day but he has been taking it everyday for the past week. Currently the patient has had a weight loss of over 50 pounds in the last 3 months Denies any fever, chills, rash, dysuria, hematuria, abdominal distention, N, V, D, dizziness, cp, cough, jaundice, weakness, muscle cramps, syncope or confusion. His creatinine is 14.4, K 5.5 and bicarb 19. He was seen in the ER last year and his BP was around 170/110. He is not taking any meds on a regular basis and has not seen a physician except ER visit last year. On admission the patient underwent a biopsy with placement of nephrostomy tube. 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 Assessment discussion with urology and surgery has recommended that patient be transferred to the [facility] for further management to call placed all the way to the accepting physician. /SBO - noted on CT abdoemn today - keep NPO, GS consult - NG suction /Pelvic mass Large pelvic mass between bladder and rectum with large lyph nodes, likely malignant. Consulted Urology to evaluate, s/p cystoscopy with prostate biopsy Differentiated carcinoma with squamous differentiation on pathology but unsure if this is from prostate or the abdomial mass Obtain GI consult also for possible colonoscopy per Urology recommendation Consulted oncology, ordered repeat abdominal us Plan biopsy counseled as pathology reports that they have required tissue sample. /Acute kidney injury due to pelvic mass New diagnosis, No history of renal disease Nephrology following. discussed with Dr. Bunch Ultrasound Kidneys showed bilat hydronephrosis CT Abd shows Pelvic mass with multiple large lymph nodes Had bilateral nephrostomy tubes placed 05/14/[address] Freeman. Creatinine continued to improve /Acute DVT right femoral vein. Discussed with Dr. Freeman. No anticoagulation for now because of bilateral nephrostomy tubes. Reassed with repeat venous doppler and showed no DVT propagation Pt could likely be started on anticoagulation after 14days if no concerns of active bleeding at that time. /Hypertensive urgency, cont Clonidine, Metoprolol, Norvasc and Hydralazine. /Hyperkalemia, now resolved after Insulin, Kayexalate /Hypokalemia, replete /Hyponatremia, Resolved /Metabolic acidosis due to MARYLOU, resolved with iv fluid /ACUTE BLOOD LOSS ANEMIA Monitor. /Fever, Obtained blood cultures /Moderate to severe protein calorie malnutrition -dietitian consultation -start TPN Full code status Discussed with patient and general surgeon Discussed with patient and family. Personal poor prognosis and critically ill History Interval history: Patient seen and examined today looks uncomfortable, NGT continue inplace. He denies any worsening abdominal pain. Hospitalist Physical - Physical exam Narrative exam: GEN:Not in acute distress, MARKEDLY CACHETIC HEENT: Normocephalic, atraumatic,NGT, marked temporal wasting Neck: supple, No JVD Lungs:Clear to auscultation bilaterally, no crackles, no wheeze Heart:S1 and S2 reg, no murmurs, rubs or gallop Abd:soft, mild tender, distended, hypoactive bowel sounds, bilateral nephrostomy tubes draining Ext: Bilateral lower ext edema, no cyanosis Neuro:AAO x 3, No focal neurological signs - Constitutional Vitals: Temp Pulse Resp BP Pulse Ox 98.5 F 116 H 20 146/98 92 05/23/18 12:48 05/23/18 12:48 05/23/18 12:48 05/23/18 12:48 05/23/18 12:48 General appearance: Present: no acute distress Results - Labs CBC & Chem 7: 05/23/18 09:03 05/23/18 09:03 Labs: Laboratory Last Values WBC 26.3 K/mm3 (4.5-11.0) H 05/23/18 09:03 RBC 3.57 M/mm3 (3.65-5.03) L 05/23/18 09:03 Hgb 10.4 gm/dl (11.8-15.2) L 05/23/18 09:03 Hct 31.1 % (35.5-45.6) L D 05/23/18 09:03 MCV 87 fl (84-94) 05/23/18 09:03 MCH 29 pg (28-32) 05/23/18 09:03 MCHC 33 % (32-34) 05/23/18 09:03 RDW 13.9 % (13.2-15.2) 05/23/18 09:03 Plt Count 416 K/mm3 (140-440) 05/23/18 09:03 Lymph % (Auto) 10.1 % (13.4-35.0) L 05/19/18 05:33 [place] % (Auto) 4.6 % (0.0-7.3) 05/19/18 05:33 Eos % (Auto) 0.0 % (0.0-4.3) 05/19/18 05:33 Baso % (Auto) 0.1 % (0.0-1.8) 05/19/18 05:33 Lymph # 1.1 K/mm3 (1.2-5.4) L 05/19/18 05:33 [place] # 0.5 K/mm3 (0.0-0.8) 05/19/18 05:33 Eos # 0.0 K/mm3 (0.0-0.4) 05/19/18 05:33 Baso # 0.0 K/mm3 (0.0-0.1) 05/19/18 05:33 Add Manual Diff Complete 05/22/18 06:49 Total Counted 100 05/22/18 06:49 Seg Neutrophils % Geotechnical Field Technician 05/22/18 06:49 Seg Neuts % (Manual) 85.0 % (40.0-70.0) H 05/22/18 06:49 Band Neutrophils % 10.0 % 05/22/18 06:49 Lymphocytes % (Manual) 4.0 % (13.4-35.0) L 05/22/18 06:49 Reactive Lymphs % (Man) 0 % 05/22/18 06:49 Monocytes % (Manual) 1.0 % (0.0-7.3) 05/22/18 06:49 Eosinophils % (Manual) 0 % (0.0-4.3) 05/22/18 06:49 Basophils % (Manual) 0 % (0.0-1.8) 05/22/18 06:49 Metamyelocytes % 0 % 05/22/18 06:49 Myelocytes % 0 % 05/22/18 06:49 Promyelocytes % 0 % 05/22/18 06:49 Blast Cells % 0 % 05/22/18 06:49 Nucleated RBC % Not Reportable 05/22/18 06:49 Seg Neutrophils # 9.0 K/mm3 (1.8-7.7) H 05/19/18 05:33 Seg Neutrophils # Man 17.0 K/mm3 (1.8-7.7) H 05/22/18 06:49 Band Neutrophils # 2.0 K/mm3 05/22/18 06:49 Lymphocytes # (Manual) 0.8 K/mm3 (1.2-5.4) L 05/22/18 06:49 Abs React Lymphs (Man) 0.0 K/mm3 05/22/18 06:49 Monocytes # (Manual) 0.2 K/mm3 (0.0-0.8) 05/22/18 06:49 Eosinophils # (Manual) 0.0 K/mm3 (0.0-0.4) 05/22/18 06:49 Basophils # (Manual) 0.0 K/mm3 (0.0-0.1) 05/22/18 06:49 Metamyelocytes # 0.0 K/mm3 05/22/18 06:49 Myelocytes # 0.0 K/mm3 05/22/18 06:49 Promyelocytes # 0.0 K/mm3 05/22/18 06:49 Blast Cells # 0.0 K/mm3 05/22/18 06:49 WBC Morphology Not Reportable 05/22/18 06:49 Hypersegmented Neuts Not Reportable 05/22/18 06:49 Hyposegmented Neuts Not Reportable 05/22/18 06:49 Hypogranular Neuts Not Reportable 05/22/18 06:49 Smudge Cells Not Reportable 05/22/18 06:49 Toxic Granulation Not Reportable 05/22/18 06:49 Toxic Vacuolation Not Reportable 05/22/18 06:49 Dohle Bodies Not Reportable 05/22/18 06:49 Pelger-Huet Anomaly Not Reportable 05/22/18 06:49 Mahesh Rods Not Reportable 05/22/18 06:49 Platelet Estimate Consistent w auto 05/22/18 06:49 Clumped Platelets Not Reportable 05/22/18 06:49 Plt Clumps, EDTA Not Reportable 05/22/18 06:49 Large Platelets Not Reportable 05/22/18 06:49 Giant Platelets Not Reportable 05/22/18 06:49 Platelet Satelliting Not Reportable 05/22/18 06:49 Plt Morphology Comment Not Reportable 05/22/18 06:49 RBC Morphology Not Reportable 05/22/18 06:49 Dimorphic RBCs Not Reportable 05/22/18 06:49 Polychromasia Not Reportable 05/22/18 06:49 Hypochromasia 1+ 05/22/18 06:49 Poikilocytosis Not Reportable 05/22/18 06:49 Anisocytosis Not Reportable 05/22/18 06:49 Microcytosis Not Reportable 05/22/18 06:49 Macrocytosis Not Reportable 05/22/18 06:49 Spherocytes Not Reportable 05/22/18 06:49 Pappenheimer Bodies Not Reportable 05/22/18 06:49 Sickle Cells Not Reportable 05/22/18 06:49 Target Cells Not Reportable 05/22/18 06:49 Tear Drop Cells Not Reportable 05/22/18 06:49 Ovalocytes Not Reportable 05/22/18 06:49 Helmet Cells Not Reportable 05/22/18 06:49 Hernandez-Bangor Bodies Not Reportable 05/22/18 06:49 [place] Rings Not Reportable 05/22/18 06:49 Nory Cells Not Reportable 05/22/18 06:49 Bite Cells Not Reportable 05/22/18 06:49 Crenated Cell Not Reportable 05/22/18 06:49 Elliptocytes Not Reportable 05/22/18 06:49 Acanthocytes (Spur) Not Reportable 05/22/18 06:49 Rouleaux Not Reportable 05/22/18 06:49 Hemoglobin C Crystals Not Reportable 05/22/18 06:49 Schistocytes Not Reportable 05/22/18 06:49 Malaria parasites Not Reportable 05/22/18 06:49 Mk Bodies Not Reportable 05/22/18 06:49 Hem Pathologist Commnt No 05/22/18 06:49 PT 18.3 Sec. (12.2-14.9) H 05/23/18 09:03 INR 1.43 (0.87-1.13) H 05/23/18 09:03 APTT 40.0 Sec. (24.2-36.6) H 05/23/18 09:03 Sodium 142 mmol/L (137-145) D 05/23/18 09:03 Potassium 3.9 mmol/L (3.6-5.0) 05/23/18 09:03 Chloride 104.8 mmol/L (98-107) 05/23/18 09:03 Carbon Dioxide 22 mmol/L (22-30) 05/23/18 09:03 Anion Gap 19 mmol/L 05/23/18 09:03 BUN 36 mg/dL (9-20) H 05/23/18 09:03 Creatinine 1.2 mg/dL (0.8-1.5) 05/23/18 09:03 Estimated GFR > 60 ml/min 05/23/18 09:03 BUN/Creatinine Ratio 30 % 05/23/18 09:03 Glucose 98 mg/dL (75-100) 05/23/18 09:03 POC Glucose 126 (70-105) H 05/14/18 10:56 Hemoglobin A1c 5.7 % (4-6) 05/14/18 05:05 Lactic Acid 1.10 mmol/L (0.7-2.0) 05/22/18 19:30 Calcium 8.4 mg/dL (8.4-10.2) 05/23/18 09:03 Phosphorus 4.20 mg/dL (2.5-4.5) 05/23/18 09:03 Magnesium 2.50 mg/dL (1.7-2.3) H 05/23/18 09:03 Iron 24 ug/dL (49-181) L 05/16/18 07:02 TIBC 160 mcg/dL (250-450) L 05/16/18 07:02 Ferritin 325.8 ng/mL (13.0-400.0) 05/16/18 07:02 Total Bilirubin < 0.20 mg/dL (0.1-1.2) 05/13/18 04:27 AST 15 units/L (5-40) 05/13/18 04:27 ALT 10 units/L (7-56) 05/13/18 04:27 Alkaline Phosphatase 80 units/L (35-129) 05/13/18 04:27 Total Creatine Kinase 236 units/L (55-170) H 05/14/18 05:05 Total Protein 8.1 g/dL (6.3-8.2) 05/13/18 04:27 Albumin 2.8 g/dL (3.9-5) L 05/13/18 04:27 Albumin/Globulin Ratio 0.5 % 05/13/18 04:27 Prostate Specific Ag 0.96 ng/mL (0.00-4.00) 05/14/18 13:29 Vitamin B12 359.2 pg/mL (211-911) 05/16/18 07:02 Folate 5.39 ng/mL (7.3-26.0) L 05/16/18 07:02 TSH 3.180 mlU/mL (0.270-4.200) 05/14/18 05:05 PTH Intact 65.37 pg/mL (15-65) H 05/14/18 05:05 Urine Color [place] (Yellow) 05/21/18 15:30 Urine Turbidity Cloudy (Clear) 05/21/18 15:30 Urine pH 5.0 (5.0-7.0) 05/21/18 15:30 Ur Specific [place] 1.019 (1.003-1.030) 05/21/18 15:30 Urine Protein >500 mg/dL (Negative) 05/21/18 15:30 Urine Glucose (UA) Neg mg/dL (Negative) 05/21/18 15:30 Urine Ketones Neg mg/dL (Negative) 05/21/18 15:30 Urine Blood Mod (Negative) 05/21/18 15:30 Urine Nitrite Neg (Negative) 05/21/18 15:30 Urine Bilirubin Neg (Negative) 05/21/18 15:30 Urine Urobilinogen 4.0 mg/dL (<2.0) 05/21/18 15:30 Ur Leukocyte Esterase Tr (Negative) 05/21/18 15:30 Urine WBC (Auto) 28.0 /HPF (0.0-6.0) H 05/21/18 15:30 Urine RBC (Auto) 33.0 /HPF (0.0-6.0) 05/21/18 15:30 U Epithel Cells (Auto) 2.0 /HPF (0-13.0) 05/21/18 15:30 Urine Bacteria (Auto) 1+ /HPF (Negative) 05/21/18 15:30 Urine WBC Clumps Few /HPF 05/13/18 19:39 Urine Mucus 1+ /HPF 05/21/18 15:30 Urine Yeast (Budding) 2+ /HPF 05/21/18 15:30 Urine Creatinine 66.0 mg/dL (0.1-20.0) H 05/13/18 19:39 Urine Sodium 60 mmol/L 05/13/18 19:39 Urine Potassium 8.69 mmol/L 05/13/18 19:39 Urine Chloride 27.8 mmolL (110-250) L 05/13/18 19:39 Urine Total Protein 24 mg/dL (5-11.8) H 05/13/18 19:39 Urine Opiates Screen Presumptive negative 05/13/18 19:39 Urine Methadone Screen Presumptive negative 05/13/18 19:39 Ur Barbiturates Screen Presumptive negative 05/13/18 19:39 Ur Phencyclidine Scrn Presumptive negative 05/13/18 19:39 Ur Amphetamines Screen Presumptive negative 05/13/18 19:39 U Benzodiazepines Scrn Presumptive negative 05/13/18 19:39 Urine Cocaine Screen Presumptive negative 05/13/18 19:39 U Marijuana (THC) Screen Presumptive negative 05/13/18 19:39 Drugs of Abuse Note Disclamer 05/13/18 19:39 ZEUS Screen Negative (Negative) 05/14/18 05:05 Proteinase 3 (PR3) Ab <1.0 AI (<1.0) 05/14/18 05:05 Myeloperoxidase Ab <1.0 AI (<1.0) 05/14/18 05:05 Complement C3 147 mg/dL (82-185) 05/14/18 05:05 Complement C4 45 mg/dL (15-53) 05/14/18 05:05 Blood Type O POSITIVE 05/22/18 11:23 Antibody Screen Negative 05/22/18 11:23 Crossmatch See Detail 05/22/18 11:23
--- NOTE | 2018-05-23 15:45 | Discharge Summary ---
Providers - Providers Date of Admission: 05/13/18 10:36 Attending physician: LESLIE KUHN MD 05/13/18 10:53 Consult to Physician [CONS] Routine Comment: OFFICE NOTIFIED [facility] 1210 Consulting Provider: MARCELLO SCHWARTZ Physician Instructions: Reason For Exam: MARYLOU 05/14/18 11:12 Consult to Physician [CONS] Routine Comment: Consulting Provider: KATERINA SILVA Physician Instructions: Reason For Exam: Bilateal Hydronephrosis. 05/17/18 13:50 Consult to Physician [CONS] Routine Comment: Consulting Provider: TONIO CARRILLO Physician Instructions: Reason For Exam: pelvic mass 05/21/18 17:08 Consult to Physician [CONS] Routine Comment: Consulting Provider: MICHOACANO ESPINOZA Physician Instructions: Reason For Exam: SBO 05/22/18 12:21 Consult to Physician [CONS] Routine Comment: Consulting Provider: HANNAH SHIPLEY Physician Instructions: Reason For Exam: possible colon mass 05/23/18 12:00 Consult to Dietitian/Nutrition [CONS] Routine Physician Instructions: Reason For Exam: Reason for Consult: Write/Manage TPN/PPN Primary care physician: TEST DEVELOPER Hospitalization Condition: Poor Hospital course: Discussed with Dr CORTES of urology at [facility] who wants patient admitted to their hospitalist service with them consulting. Will await hospitalist call back, Addendum entered and electronically signed by LESLIE KUHN MD 05/23/18 15:00 : CALLED PATIENT SISTER AND UPDATED Original Note: Assessment and Plan Assessment and plan: The patient is a 52 YO AAM with medical history significant for Uncontrolled HTN who came to the ER for evaluation of bilateral leg swelling, SOB and no urine output. He developed lower abdominal pain about 3 weeks ago, which was sharp, intermittent and not radiating. He noticed bilateral leg swelling about a week ago. He stopped making urine for the past 5 days. Patient also reports fatigue and RIVERA. Usually he takes Aleve every other day but he has been taking it everyday for the past week. Currently the patient has had a weight loss of over 50 pounds in the last 3 months Denies any fever, chills, rash, dysuria, hematuria, abdominal distention, N, V, D, dizziness, cp, cough, jaundice, weakness, muscle cramps, syncope or confusion. His creatinine is 14.4, K 5.5 and bicarb 19. He was seen in the ER last year and his BP was around 170/110. He is not taking any meds on a regular basis and has not seen a physician except ER visit last year. On admission the patient underwent a biopsy with placement of nephrostomy tube. 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 Assessment discussion with urology and surgery has recommended that patient be transferred to the [facility] for further management to call placed all the way to the accepting physician. /SBO - noted on CT abdoemn today - keep NPO, GS consult - NG suction /Pelvic mass Large pelvic mass between bladder and rectum with large lyph nodes, likely malignant. Consulted Urology to evaluate, s/p cystoscopy with prostate biopsy Differentiated carcinoma with squamous differentiation on pathology but unsure if this is from prostate or the abdomial mass Obtain GI consult also for possible colonoscopy per Urology recommendation Consulted oncology, ordered repeat abdominal us Plan biopsy counseled as pathology reports that they have required tissue sample. /Acute kidney injury due to pelvic mass New diagnosis, No history of renal disease Nephrology following. discussed with Dr. Schwartz Ultrasound Kidneys showed bilat hydronephrosis CT Abd shows Pelvic mass with multiple large lymph nodes Had bilateral nephrostomy tubes placed 05/14/[address] Freeman. Creatinine continued to improve /Acute DVT right femoral vein. Discussed with Dr. Freeman. No anticoagulation for now because of bilateral nephrostomy tubes. Reassed with repeat venous doppler and showed no DVT propagation Pt could likely be started on anticoagulation after 14days if no concerns of active bleeding at that time. /Hypertensive urgency, cont Clonidine, Metoprolol, Norvasc and Hydralazine. /Hyperkalemia, now resolved after Insulin, Kayexalate /Hypokalemia, replete /Hyponatremia, Resolved /Metabolic acidosis due to MARYLOU, resolved with iv fluid /ACUTE BLOOD LOSS ANEMIA Monitor. /Fever, Obtained blood cultures /Moderate to severe protein calorie malnutrition -dietitian consultation -start TPN Full code status Discussed with patient and general surgeon Discussed with patient and family. Personal poor prognosis and critically ill Disposition: DC/TX-70 ANOTHER TYPE HLTHCARE Exam - Physical Exam Narrative exam: GEN:Not in acute distress, MARKEDLY CACHETIC HEENT: Normocephalic, atraumatic,NGT, marked temporal wasting Neck: supple, No JVD Lungs:Clear to auscultation bilaterally, no crackles, no wheeze Heart:S1 and S2 reg, no murmurs, rubs or gallop Abd:soft, mild tender, distended, hypoactive bowel sounds, bilateral nephrostomy tubes draining Ext: Bilateral lower ext edema, no cyanosis Neuro:AAO x 3, No focal neurological signs - Constitutional Vitals: Temp Pulse Resp BP Pulse Ox 98.5 F 116 H 20 146/98 92 05/23/18 12:48 05/23/18 12:48 05/23/18 12:48 05/23/18 12:48 05/23/18 12:48 Plan Additional Instructions: FOLLOW UP PER [place] Follow up with: PRIMARY CAREMD [Primary Care Provider] - 3-5 Days
[2018-05-23] MEDS: APRESOLINE IV PRN (17:41)
[2018-05-23] MEDS ORDERED: TPN ADULT 1,800 ML IV SCH (20:00)
[2018-05-23] MEDS: VANCOMYCIN/NS 1 GM/250 ML 1 GM/250 ML BAG IV SCH (20:56)
[2018-05-24] MEDS: MORPHINE IV PRN ×4 (00:24→21:56)
[2018-05-24] MEDS: TYLENOL PR PRN (00:24)
[2018-05-24 05:52] LABS: BUN/Creatinine Ratio 28; Blood Urea Nitrogen 33 mg/dL (9-20); Calcium 8.3 mg/dL (8.4-10.2); Hemolysis Index 0
[2018-05-24] MEDS: APRESOLINE IV PRN ×2 (05:54→18:10)
[2018-05-24] MEDS: CATAPRES PO SCH ×2 (06:16→17:17)
[2018-05-24] MEDS: APRESOLINE PO SCH ×2 (06:16→14:51)
--- NOTE | 2018-05-24 08:57 | Progress Note ---
Assessment and Plan 1. Acute kidney injury: Acute kidney injury in the setting of bilateral hydronephrosis secondary to pelvic mass. S/p bilateral nephrostomy. Creatinine level is better. Continue IV fluids. Monitor. 2. Bowel obstruction: Followed by Gen. Surgery. 3. Bilateral hydronephrosis: S/p bilateral nephrostomy. S/p Cysto and drainage of abscess. 4. 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 5. HTN: Increase Metoprolol. 6. Anemia: Iron and Folate supplement. Subjective Date of service: 05/24/18 Principal diagnosis: pelvic mass Interval history: Patient was seen and examined at the bedside. Doing ok. Objective - Vital Signs Vital signs: Vital Signs - 12hr 05/23/18 05/24/18 05/24/18 22:52 05:26 05:54 Temperature 100.8 F H 100.7 F H Pulse Rate 122 H 115 H 117 H Respiratory 32 H 32 H Rate Blood Pressure 170/97 171/104 171/104 O2 Sat by Pulse 93 94 Oximetry - General Appearance General appearance: well-developed, appears stated age, other (not in distress, NG tube noted) EENT: ATNC, PERRL, hearing intact, vision intact Neck: supple Respiratory: Present: Clear to Ascultation Cardiology: regular, S1S2, no murmurs Gastrointestinal: normoactive bowel sounds, no tenderness, distended, other ( bilateral nephrostomy tubes noted) Integumentary: no rash Neurologic: no focal deficit, no asterixis, alert and oriented x3 Musculoskeletal: other (no edema) Psychiatric: cooperative - Lab 05/23/18 09:03 05/24/18 04:43 Most recent lab results Calcium 8.3 mg/dL (8.4-10.2) L 05/24/18 04:43 Phosphorus 4.00 mg/dL (2.5-4.5) 05/24/18 04:43 Magnesium 2.50 mg/dL (1.7-2.3) H 05/24/18 04:43 Urine Creatinine 66.0 mg/dL (0.1-20.0) H 05/13/18 19:39 Urine Sodium 60 mmol/L 05/13/18 19:39 Urine Total Protein 24 mg/dL (5-11.8) H 05/13/18 19:39
[2018-05-24] MEDS: FEOSOL PO SCH (09:46)
[2018-05-24] MEDS: FOLVITE PO SCH (09:46)
[2018-05-24] MEDS: LOPRESSOR PO SCH (09:47)
[2018-05-24] MEDS: LEVAQUIN 500MG/100ML 500 MG/100 ML BAG IV SCH (09:47)
[2018-05-24] MEDS: NORVASC PO SCH (09:48)
--- NOTE | 2018-05-24 11:20 | Event Note ---
Date: 05/24/18 Pathology results positive for bladder cancer. Patient pending transfer to tertiary institution ([facility] with consulting Dr. Harrington-urology).
--- NOTE | 2018-05-24 12:00 | Progress Note ---
Assessment and Plan Pt status quo. no compl. neg BM's Abd status quo ( distended, non tender) discussed with radiology, pathology and Dr. Quiles Path - sq cell ca? no evidence of origin However CT appears to show the rectum to be clean of any tumor and unobstructed. Sigmoid colon appears to loop around the mass and is exctrinsically compressed but the mass does not appear to be contiguous with either the rectum or sigmoid Transfer arrangements with [facility] in process. If pt cannot be transferred, then will need colonoscopy as per GI and then I can proceed with diverting colostomy pending GI findings Objective Vital Signs - 12hr 05/24/18 05/24/18 05:26 05:54 Temperature 100.7 F H Pulse Rate 115 H 117 H Respiratory 32 H Rate Blood Pressure 171/104 171/104 O2 Sat by Pulse 94 Oximetry - Labs 05/23/18 09:03 05/24/18 04:43 Diabetes panel 05/24/18 Range/Units 04:43 Sodium 146 H (137-145) mmol/L Potassium 3.7 (3.6-5.0) mmol/L Chloride 108.6 H (98-107) mmol/L Carbon Dioxide 23 (22-30) mmol/L BUN 33 H (9-20) mg/dL Creatinine 1.2 (0.8-1.5) mg/dL Glucose 109 H (75-100) mg/dL Calcium 8.3 L (8.4-10.2) mg/dL Calcium panel 05/24/18 Range/Units 04:43 Calcium 8.3 L (8.4-10.2) mg/dL Phosphorus 4.00 (2.5-4.5) mg/dL Pituitary panel 05/24/18 Range/Units 04:43 Sodium 146 H (137-145) mmol/L Potassium 3.7 (3.6-5.0) mmol/L Chloride 108.6 H (98-107) mmol/L Carbon Dioxide 23 (22-30) mmol/L BUN 33 H (9-20) mg/dL Creatinine 1.2 (0.8-1.5) mg/dL Glucose 109 H (75-100) mg/dL Calcium 8.3 L (8.4-10.2) mg/dL Adrenal panel 05/24/18 Range/Units 04:43 Sodium 146 H (137-145) mmol/L Potassium 3.7 (3.6-5.0) mmol/L Chloride 108.6 H (98-107) mmol/L Carbon Dioxide 23 (22-30) mmol/L BUN 33 H (9-20) mg/dL Creatinine 1.2 (0.8-1.5) mg/dL Glucose 109 H (75-100) mg/dL Calcium 8.3 L (8.4-10.2) mg/dL
[2018-05-24] MEDS: VANCOMYCIN/NS 1 GM/250 ML 1 GM/250 ML BAG IV SCH (13:00)
--- NOTE | 2018-05-24 13:11 | Vascular Lab Report ---
Right Lower Extremity Venous Duplex Study: Reason for Exam: Followup deep venous thrombosis right leg. Comments on the Right: Small thrombus is seen in the proximal peroneal vein in the right calf. The remaining veins visualized are freely compressible without evidence of internal echogenicity. Spontaneous and phasic flow is present proximally. There is no evidence of propagation since previous study dated May 15, 2018. Comments on the Left: A limited duplex study was done of the proximal veins of the left lower extremity. All veins visualized are freely compressible without evidence of internal echogenicity. Flow is spontaneous and phasic throughout. No evidence of acute or chronic thrombus is seen in any of the vessels visualized. Impression: Acute deep venous thrombosis in the proximal right peroneal vein. This is unchanged since May 15, 2018.
--- NOTE | 2018-05-24 13:21 | Hem/Onc Progress Note ---
Assessment and Plan #Pelvic mass Large pelvic mass between bladder and rectum with large lymph nodes, s/p cystoscopy prostate area bx - prelim - sq cell ca # CT shows bowel obstruction - NGT - sx team following # anemia low folate on replacement # leukocytosis on 05/22 - we will follow - likely reactive # h/o Acute kidney injury due to pelvic mass - Nephrology following. Ultrasound Kidneys showed bilat hydronephrosis CT Abd shows Pelvic mass with multiple large lymph nodes Had bilateral nephrostomy tubes placed 05/14/[address] Freeman. #Acute DVT right leg - below knee No anticoagulation for now because of bilateral nephrostomy tubes and acute abdo issues. There is plan for repeat radiology # Hypertension - hospitalist following # h/o electrolyte abn - being followed by nephrology # h/o Fever - Cystoscopy done d/w Hospitalist - [place] transfer was being evaluated it is very peculiar to have sq cell ca in prostate area Ct chest was done - Patient Problems (1) Pelvic mass in male Current Visit: Yes Status: Acute Subjective Date of service: 05/24/18 Principal diagnosis: squamous cell ca - prostate bx - prelim report Interval history: h/o abdo pain - Bowel obstruction - seen by sx team - has NGT and NPO has nephrostomy Transfer to [place] being looked into Objective - Constitutional Vitals: Last Vital Signs Temp 98.4 F 05/24/18 12:37 Pulse 104 H 05/24/18 12:37 Resp 20 05/24/18 12:37 BP 140/90 05/24/18 12:37 Pulse Ox 93 05/24/18 12:37 Pain Intensity (0-10): 1/10 (abdo) General appearance: mild distress Performance status: 3-limited selfcare - EENT Eyes: PERRL ENT: clear oral mucosa Lymph node exam: negative cervical, negative supraclavicular - Neck Neck: supple - Respiratory Respiratory effort: Positive: normal Respiratory: negative: CTA - Cardiovascular Heart Sounds: Present: S1 & S2 Extremities: No edema - Gastrointestinal General gastrointestinal: Present: distended Rectal Exam: deferred - Genitourinary Male genitourinary: Present: deferred - Integumentary Integumentary: warm - Musculoskeletal Musculoskeletal: strength equal bilaterally - Labs Lab Results: Laboratory Results - last 24 hr 05/23/18 05/23/18 05/24/18 17:34 21:14 04:43 Sodium 146 H Potassium 3.7 Chloride 108.6 H Carbon Dioxide 23 Anion Gap 18 BUN 33 H Creatinine 1.2 Estimated GFR > 60 BUN/Creatinine Ratio 28 Glucose 109 H POC Glucose 108 H 110 H Calcium 8.3 L Phosphorus 4.00 Magnesium 2.50 H 05/24/18 05/24/18 08:04 11:57 Sodium Potassium Chloride Carbon Dioxide Anion Gap BUN Creatinine Estimated GFR BUN/Creatinine Ratio Glucose POC Glucose 106 H 100 Calcium Phosphorus Magnesium
--- NOTE | 2018-05-24 13:55 | Progress Note ---
Assessment and Plan Assessment and plan: The patient is a 52 YO AAM with medical history significant for Uncontrolled HTN who came to the ER for evaluation of bilateral leg swelling, SOB and no urine output. He had abdominal pain, bilateral leg swelling, stopped making urine. Currently the patient has had a weight loss of over 50 pounds in the last 3 months. He was not taking any meds on a regular basis and has not seen a physician except ER visit last year. He underwent a biopsy with placement of bilateral nephrostomy tubes. 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 /SBO - noted on CT abdoemn today - keep NPO, GS consult - NG suction /Pelvic mass Large pelvic mass between bladder and rectum with large lyph nodes, malignant. Consulted Urology to evaluate, s/p cystoscopy with prostate biopsy Differentiated carcinoma with squamous differentiation on pathology but unsure if this is from prostate or the abdomial mass /Acute kidney injury due to pelvic mass New diagnosis, No history of renal disease Nephrology following. Ultrasound Kidneys showed bilat hydronephrosis CT Abd shows Pelvic mass with multiple large lymph nodes Had bilateral nephrostomy tubes placed 05/14/[address] Freeman. Creatinine continued to improve /Acute DVT right femoral vein. Discussed with Dr. Freeman. No anticoagulation for now because of bilateral nephrostomy tubes. Reassed with repeat venous doppler and showed no DVT propagation Pt could likely be started on anticoagulation after 14days if no concerns of active bleeding at that time. /Hypertensive urgency, cont Clonidine, Metoprolol, Norvasc and Hydralazine. /Hyperkalemia, now resolved after Insulin, Kayexalate /Hypokalemia, replete /Hyponatremia, Resolved /Metabolic acidosis due to MARYLOU, resolved with iv fluid /ACUTE BLOOD LOSS ANEMIA Monitor. /Fever, Obtained blood cultures /Moderate to severe protein calorie malnutrition -dietitian consultation -start TPN Full code status Discussed with Dr. Valentin. He states patient not accepted at [facility]. I discussed with Dr. Keita, surgeon. he recommends colonoscopy by GI then, he, Dr. Keita will do diverting colostomy. I then discussed with Dr. Cunningham and he states will do flex sigmoidoscopy. I later discussed this with patient and sister at bedside, in presence of Nurse , Kita and Cota. History Interval history: Abdominal pain. Patient not accepted at [facility] Hospitalist Physical - Physical exam Narrative exam: GEN:Not in acute distress, lying in bed, very ill looking HEENT: Normocephalic, atraumatic, Neck: supple, No JVD Lungs: Clear to auscultaion bilaterally, no crackles Heart:S1 and S2 reg, no murmurs, rubs or gallop Abd:soft, mild tender, non-distended, Normal bowel sounds, bilat nephrostomy tubes Ext: No edema, clubbing or cyanosis Neuro: Awake, alert, oriented X 3, Moves all extremities - Constitutional Vitals: Temp Pulse Resp BP Pulse Ox 98.4 F 104 H 20 140/90 93 05/24/18 12:37 05/24/18 12:37 05/24/18 12:37 05/24/18 12:37 05/24/18 12:37 General appearance: Present: no acute distress Results - Labs CBC & Chem 7: 05/23/18 09:03 05/25/18 05:42 Labs: Laboratory Last Values WBC 26.3 K/mm3 (4.5-11.0) H 05/23/18 09:03 RBC 3.57 M/mm3 (3.65-5.03) L 05/23/18 09:03 Hgb 10.4 gm/dl (11.8-15.2) L 05/23/18 09:03 Hct 31.1 % (35.5-45.6) L D 05/23/18 09:03 MCV 87 fl (84-94) 05/23/18 09:03 MCH 29 pg (28-32) 05/23/18 09:03 MCHC 33 % (32-34) 05/23/18 09:03 RDW 13.9 % (13.2-15.2) 05/23/18 09:03 Plt Count 416 K/mm3 (140-440) 05/23/18 09:03 Lymph % (Auto) 10.1 % (13.4-35.0) L 05/19/18 05:33 Elk % (Auto) 4.6 % (0.0-7.3) 05/19/18 05:33 Eos % (Auto) 0.0 % (0.0-4.3) 05/19/18 05:33 Baso % (Auto) 0.1 % (0.0-1.8) 05/19/18 05:33 Lymph # 1.1 K/mm3 (1.2-5.4) L 05/19/18 05:33 Elk # 0.5 K/mm3 (0.0-0.8) 05/19/18 05:33 Eos # 0.0 K/mm3 (0.0-0.4) 05/19/18 05:33 Baso # 0.0 K/mm3 (0.0-0.1) 05/19/18 05:33 Add Manual Diff Complete 05/22/18 06:49 Total Counted 100 05/22/18 06:49 Seg Neutrophils % [place] 05/22/18 06:49 Seg Neuts % (Manual) 85.0 % (40.0-70.0) H 05/22/18 06:49 Band Neutrophils % 10.0 % 05/22/18 06:49 Lymphocytes % (Manual) 4.0 % (13.4-35.0) L 05/22/18 06:49 Reactive Lymphs % (Man) 0 % 05/22/18 06:49 Monocytes % (Manual) 1.0 % (0.0-7.3) 05/22/18 06:49 Eosinophils % (Manual) 0 % (0.0-4.3) 05/22/18 06:49 Basophils % (Manual) 0 % (0.0-1.8) 05/22/18 06:49 Metamyelocytes % 0 % 05/22/18 06:49 Myelocytes % 0 % 05/22/18 06:49 Promyelocytes % 0 % 05/22/18 06:49 Blast Cells % 0 % 05/22/18 06:49 Nucleated RBC % Not Reportable 05/22/18 06:49 Seg Neutrophils # 9.0 K/mm3 (1.8-7.7) H 05/19/18 05:33 Seg Neutrophils # Man 17.0 K/mm3 (1.8-7.7) H 05/22/18 06:49 Band Neutrophils # 2.0 K/mm3 05/22/18 06:49 Lymphocytes # (Manual) 0.8 K/mm3 (1.2-5.4) L 05/22/18 06:49 Abs React Lymphs (Man) 0.0 K/mm3 05/22/18 06:49 Monocytes # (Manual) 0.2 K/mm3 (0.0-0.8) 05/22/18 06:49 Eosinophils # (Manual) 0.0 K/mm3 (0.0-0.4) 05/22/18 06:49 Basophils # (Manual) 0.0 K/mm3 (0.0-0.1) 05/22/18 06:49 Metamyelocytes # 0.0 K/mm3 05/22/18 06:49 Myelocytes # 0.0 K/mm3 05/22/18 06:49 Promyelocytes # 0.0 K/mm3 05/22/18 06:49 Blast Cells # 0.0 K/mm3 05/22/18 06:49 WBC Morphology Not Reportable 05/22/18 06:49 Hypersegmented Neuts Not Reportable 05/22/18 06:49 Hyposegmented Neuts Not Reportable 05/22/18 06:49 Hypogranular Neuts Not Reportable 05/22/18 06:49 Smudge Cells Not Reportable 05/22/18 06:49 Toxic Granulation Not Reportable 05/22/18 06:49 Toxic Vacuolation Not Reportable 05/22/18 06:49 Dohle Bodies Not Reportable 05/22/18 06:49 Pelger-Huet Anomaly Not Reportable 05/22/18 06:49 Mahesh Rods Not Reportable 05/22/18 06:49 Platelet Estimate Consistent w auto 05/22/18 06:49 Clumped Platelets Not Reportable 05/22/18 06:49 Plt Clumps, EDTA Not Reportable 05/22/18 06:49 Large Platelets Not Reportable 05/22/18 06:49 Giant Platelets Not Reportable 05/22/18 06:49 Platelet Satelliting Not Reportable 05/22/18 06:49 Plt Morphology Comment Not Reportable 05/22/18 06:49 RBC Morphology Not Reportable 05/22/18 06:49 Dimorphic RBCs Not Reportable 05/22/18 06:49 Polychromasia Not Reportable 05/22/18 06:49 Hypochromasia 1+ 05/22/18 06:49 Poikilocytosis Not Reportable 05/22/18 06:49 Anisocytosis Not Reportable 05/22/18 06:49 Microcytosis Not Reportable 05/22/18 06:49 Macrocytosis Not Reportable 05/22/18 06:49 Spherocytes Not Reportable 05/22/18 06:49 Pappenheimer Bodies Not Reportable 05/22/18 06:49 Sickle Cells Not Reportable 05/22/18 06:49 Target Cells Not Reportable 05/22/18 06:49 Tear Drop Cells Not Reportable 05/22/18 06:49 Ovalocytes Not Reportable 05/22/18 06:49 Helmet Cells Not Reportable 05/22/18 06:49 [place] Bodies Not Reportable 05/22/18 06:49 Velarde Rings Not Reportable 05/22/18 06:49 Nory Cells Not Reportable 05/22/18 06:49 Bite Cells Not Reportable 05/22/18 06:49 Crenated Cell Not Reportable 05/22/18 06:49 Elliptocytes Not Reportable 05/22/18 06:49 Acanthocytes (Spur) Not Reportable 05/22/18 06:49 Rouleaux Not Reportable 05/22/18 06:49 Hemoglobin C Crystals Not Reportable 05/22/18 06:49 Schistocytes Not Reportable 05/22/18 06:49 Malaria parasites Not Reportable 05/22/18 06:49 Mk Bodies Not Reportable 05/22/18 06:49 Hem Pathologist Commnt No 05/22/18 06:49 PT 18.3 Sec. (12.2-14.9) H 05/23/18 09:03 INR 1.43 (0.87-1.13) H 05/23/18 09:03 APTT 40.0 Sec. (24.2-36.6) H 05/23/18 09:03 Sodium 146 mmol/L (137-145) H 05/24/18 04:43 Potassium 3.7 mmol/L (3.6-5.0) 05/24/18 04:43 Chloride 108.6 mmol/L (98-107) H 05/24/18 04:43 Carbon Dioxide 23 mmol/L (22-30) 05/24/18 04:43 Anion Gap 18 mmol/L 05/24/18 04:43 BUN 33 mg/dL (9-20) H 05/24/18 04:43 Creatinine 1.2 mg/dL (0.8-1.5) 05/24/18 04:43 Estimated GFR > 60 ml/min 05/24/18 04:43 BUN/Creatinine Ratio 28 % 05/24/18 04:43 Glucose 109 mg/dL (75-100) H 05/24/18 04:43 POC Glucose 100 (70-105) 05/24/18 11:57 Hemoglobin A1c 5.7 % (4-6) 05/14/18 05:05 Lactic Acid 1.10 mmol/L (0.7-2.0) 05/22/18 19:30 Calcium 8.3 mg/dL (8.4-10.2) L 05/24/18 04:43 Phosphorus 4.00 mg/dL (2.5-4.5) 05/24/18 04:43 Magnesium 2.50 mg/dL (1.7-2.3) H 05/24/18 04:43 Iron 24 ug/dL (49-181) L 05/16/18 07:02 TIBC 160 mcg/dL (250-450) L 05/16/18 07:02 Ferritin 325.8 ng/mL (13.0-400.0) 05/16/18 07:02 Total Bilirubin < 0.20 mg/dL (0.1-1.2) 05/13/18 04:27 AST 15 units/L (5-40) 05/13/18 04:27 ALT 10 units/L (7-56) 05/13/18 04:27 Alkaline Phosphatase 80 units/L (35-129) 05/13/18 04:27 Total Creatine Kinase 236 units/L (55-170) H 05/14/18 05:05 Total Protein 8.1 g/dL (6.3-8.2) 05/13/18 04:27 Albumin 2.8 g/dL (3.9-5) L 05/13/18 04:27 Albumin/Globulin Ratio 0.5 % 05/13/18 04:27 Prostate Specific Ag 0.96 ng/mL (0.00-4.00) 05/14/18 13:29 Vitamin B12 359.2 pg/mL (211-911) 05/16/18 07:02 Folate 5.39 ng/mL (7.3-26.0) L 05/16/18 07:02 TSH 3.180 mlU/mL (0.270-4.200) 05/14/18 05:05 PTH Intact 65.37 pg/mL (15-65) H 05/14/18 05:05 Urine Color Maria [place] Rosario (Yellow) 05/21/18 15:30 Urine Turbidity Cloudy (Clear) 05/21/18 15:30 Urine pH 5.0 (5.0-7.0) 05/21/18 15:30 Ur Specific [place] 1.019 (1.003-1.030) 05/21/18 15:30 Urine Protein >500 mg/dL (Negative) 05/21/18 15:30 Urine Glucose (UA) Neg mg/dL (Negative) 05/21/18 15:30 Urine Ketones Neg mg/dL (Negative) 05/21/18 15:30 Urine Blood Mod (Negative) 05/21/18 15:30 Urine Nitrite Neg (Negative) 05/21/18 15:30 Urine Bilirubin Neg (Negative) 05/21/18 15:30 Urine Urobilinogen 4.0 mg/dL (<2.0) 05/21/18 15:30 Ur Leukocyte Esterase Tr (Negative) 05/21/18 15:30 Urine WBC (Auto) 28.0 /HPF (0.0-6.0) H 05/21/18 15:30 Urine RBC (Auto) 33.0 /HPF (0.0-6.0) 05/21/18 15:30 U Epithel Cells (Auto) 2.0 /HPF (0-13.0) 05/21/18 15:30 Urine Bacteria (Auto) 1+ /HPF (Negative) 05/21/18 15:30 Urine WBC Clumps Few /HPF 05/13/18 19:39 Urine Mucus 1+ /HPF 05/21/18 15:30 Urine Yeast (Budding) 2+ /HPF 05/21/18 15:30 Urine Creatinine 66.0 mg/dL (0.1-20.0) H 05/13/18 19:39 Urine Sodium 60 mmol/L 05/13/18 19:39 Urine Potassium 8.69 mmol/L 05/13/18 19:39 Urine Chloride 27.8 mmolL (110-250) L 05/13/18 19:39 Urine Total Protein 24 mg/dL (5-11.8) H 05/13/18 19:39 Urine Opiates Screen Presumptive negative 05/13/18 19:39 Urine Methadone Screen Presumptive negative 05/13/18 19:39 Ur Barbiturates Screen Presumptive negative 05/13/18 19:39 Ur Phencyclidine Scrn Presumptive negative 05/13/18 19:39 Ur Amphetamines Screen Presumptive negative 05/13/18 19:39 U Benzodiazepines Scrn Presumptive negative 05/13/18 19:39 Urine Cocaine Screen Presumptive negative 05/13/18 19:39 U Marijuana (THC) Screen Presumptive negative 05/13/18 19:39 Drugs of Abuse Note Disclamer 05/13/18 19:39 ZEUS Screen Negative (Negative) 05/14/18 05:05 Proteinase 3 (PR3) Ab <1.0 AI (<1.0) 05/14/18 05:05 Myeloperoxidase Ab <1.0 AI (<1.0) 05/14/18 05:05 Complement C3 147 mg/dL (82-185) 05/14/18 05:05 Complement C4 45 mg/dL (15-53) 05/14/18 05:05 Blood Type O POSITIVE 05/22/18 11:23 Antibody Screen Negative 05/22/18 11:23 Crossmatch See Detail 05/22/18 11:23
[2018-05-24] MEDS ORDERED: TPN ADULT 2,016 ML IV SCH (20:00)
[2018-05-25] MEDS: APRESOLINE IV PRN
[2018-05-25] MEDS: FEOSOL PO SCH ×3 (00:01→22:09)
[2018-05-25] MEDS: LOPRESSOR PO SCH ×3 (00:01→22:09)
[2018-05-25] MEDS: VANCOMYCIN/NS 1 GM/250 ML 1 GM/250 ML BAG IV SCH ×2 (00:02→14:05)
[2018-05-25] MEDS: APRESOLINE PO SCH ×4 (00:02→22:08)
[2018-05-25] MEDS: MORPHINE IV PRN ×2 (06:16→19:40)
[2018-05-25] MEDS: CATAPRES PO SCH ×2 (06:18→17:53)
[2018-05-25 07:18] LABS: BUN/Creatinine Ratio 34; Blood Urea Nitrogen 34 mg/dL (9-20); Calcium 8.4 mg/dL (8.4-10.2); Hemolysis Index 7
--- NOTE | 2018-05-25 08:47 | Progress Note ---
Assessment and Plan 1. Acute kidney injury: Acute kidney injury in the setting of bilateral hydronephrosis secondary to pelvic mass. S/p bilateral nephrostomy. Creatinine level is better. Continue IV fluids. Monitor. 2. Electrolytes: Hypernatremia, Hypotonic IV fluids. 3. Bowel obstruction: Followed by Gen. Surgery. 4. Bilateral hydronephrosis: S/p bilateral nephrostomy. S/p Cysto and drainage of abscess. 5. 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 6. HTN: Monitor. 7. Anemia: Iron and Folate supplement. Subjective Date of service: 05/25/18 Principal diagnosis: pelvic mass Interval history: Patient was seen and examined at the bedside. Objective - Vital Signs Vital signs: Vital Signs - 12hr 05/24/18 05/25/18 05/25/18 21:23 00:00 00:01 Temperature 100.2 F H Pulse Rate 117 H 117 H 117 H Respiratory 32 H Rate Blood Pressure 170/96 171/96 171/96 O2 Sat by Pulse 94 Oximetry 05/25/18 05:37 Temperature 98.1 F Pulse Rate 115 H Respiratory 32 H Rate Blood Pressure 158/98 O2 Sat by Pulse 95 Oximetry - General Appearance General appearance: well-developed, other (appears emaciated, not in distress, NG tube) EENT: ATNC, PERRL, mucous membranes dry, hearing intact, vision intact Neck: supple Respiratory: Present: Clear to Ascultation Cardiology: tachycardia, S1S2, no murmurs Gastrointestinal: normoactive bowel sounds, distended Integumentary: no rash, warm and dry Neurologic: no focal deficit, no asterixis, alert and oriented x3 Musculoskeletal: other (no edema) - Lab 05/26/18 02:24 05/26/18 04:20 Most recent lab results Calcium 8.4 mg/dL (8.4-10.2) 05/25/18 05:42 Phosphorus 4.00 mg/dL (2.5-4.5) 05/25/18 05:42 Magnesium 2.30 mg/dL (1.7-2.3) 05/25/18 05:42 Urine Creatinine 66.0 mg/dL (0.1-20.0) H 05/13/18 19:39 Urine Sodium 60 mmol/L 05/13/18 19:39 Urine Total Protein 24 mg/dL (5-11.8) H 05/13/18 19:39
--- NOTE | 2018-05-25 08:57 | Event Note ---
Date: 05/25/18 Patient declined transfer to [facility]. GI re-consulted due to questionable rectal mass causing obstruction. Colonoscopy contraindicated at this time due to obstruction. Will schedule flex sig today for further evaluation.
[2018-05-25] MEDS: FOLVITE PO SCH (09:49)
[2018-05-25] MEDS: NORVASC PO SCH (09:49)
[2018-05-25] MEDS ORDERED: FLEET PR ONE (10:00)
[2018-05-25] MEDS: LEVAQUIN 500MG/100ML 500 MG/100 ML BAG IV SCH (10:05)
--- NOTE | 2018-05-25 10:54 | Progress Note ---
Assessment and Plan Assessment and plan: The patient is a 52 YO AAM with medical history significant for Uncontrolled HTN who came to the ER for evaluation of bilateral leg swelling, SOB and no urine output. He had abdominal pain, bilateral leg swelling, stopped making urine. Currently the patient has had a weight loss of over 50 pounds in the last 3 months. He was not taking any meds on a regular basis and has not seen a physician except ER visit last year. He underwent a biopsy with placement of bilateral nephrostomy tubes. 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 /SBO - noted on CT abdoemn today - keep NPO, GS consult - NG suction /Pelvic mass Large pelvic mass between bladder and rectum with large lyph nodes, malignant. Consulted Urology to evaluate, s/p cystoscopy with prostate biopsy Differentiated carcinoma with squamous differentiation on pathology but unsure of exact primary /Acute kidney injury due to pelvic mass New diagnosis, No history of renal disease Nephrology following. Ultrasound Kidneys showed bilat hydronephrosis CT Abd shows Pelvic mass with multiple large lymph nodes Had bilateral nephrostomy tubes placed 05/14/[address] Freeman. /Acute DVT right femoral vein. Discussed with Dr. Freeman. No anticoagulation for now because of bilateral nephrostomy tubes. Reassed with repeat venous doppler and showed no DVT propagation Pt could likely be started on anticoagulation after 14days if no concerns of active bleeding at that time. /Hypertensive urgency, cont Clonidine, Metoprolol, Norvasc and Hydralazine. /Hyperkalemia, now resolved after Insulin, Kayexalate /Hypokalemia, replete /Hyponatremia, Resolved /Metabolic acidosis due to MARYLOU, resolved with iv fluid /ACUTE BLOOD LOSS ANEMIA Monitor. /Fever, Obtained blood cultures /Moderate to severe protein calorie malnutrition -dietitian consultation - startd on TPN Full code status Discussed with Dr. Valentin. He states patient not accepted at [facility]. I discussed with Dr. Keita, surgeon. he recommends colonoscopy by GI then, he, Dr. Keita will do diverting colostomy. I then discussed with Dr. Cunningham and he states will do flex sigmoidoscopy. I later discussed this with patient and sister at bedside, in presence of Nurse , Kita and [employer]er. For flexible sigmoidoscopy today. History Interval history: Abdominal pain. Fever Patient not accepted at [facility] Hospitalist Physical - Physical exam Narrative exam: GEN:Not in acute distress, lying in bed, very ill looking HEENT: Normocephalic, atraumatic, Neck: supple, No JVD Lungs: Clear to auscultaion bilaterally, no crackles Heart:S1 and S2 reg, no murmurs, rubs or gallop Abd:soft, mild tender, non-distended, Normal bowel sounds, bilat nephrostomy tubes Ext: No edema, clubbing or cyanosis Neuro: Awake, alert, oriented X 3, Moves all extremities - Constitutional Vitals: Temp Pulse Resp BP Pulse Ox 98.1 F 115 H 32 H 158/98 95 05/25/18 05:37 05/25/18 05:37 05/25/18 05:37 05/25/18 05:37 05/25/18 05:37 General appearance: Present: no acute distress Results - Labs CBC & Chem 7: 05/26/18 02:24 05/26/18 11:01 Labs: Laboratory Last Values WBC 26.3 K/mm3 (4.5-11.0) H 05/23/18 09:03 RBC 3.57 M/mm3 (3.65-5.03) L 05/23/18 09:03 Hgb 10.4 gm/dl (11.8-15.2) L 05/23/18 09:03 Hct 31.1 % (35.5-45.6) L D 05/23/18 09:03 MCV 87 fl (84-94) 05/23/18 09:03 MCH 29 pg (28-32) 05/23/18 09:03 MCHC 33 % (32-34) 05/23/18 09:03 RDW 13.9 % (13.2-15.2) 05/23/18 09:03 Plt Count 416 K/mm3 (140-440) 05/23/18 09:03 Lymph % (Auto) 10.1 % (13.4-35.0) L 05/19/18 05:33 Andrews % (Auto) 4.6 % (0.0-7.3) 05/19/18 05:33 Eos % (Auto) 0.0 % (0.0-4.3) 05/19/18 05:33 Baso % (Auto) 0.1 % (0.0-1.8) 05/19/18 05:33 Lymph # 1.1 K/mm3 (1.2-5.4) L 05/19/18 05:33 Andrews # 0.5 K/mm3 (0.0-0.8) 05/19/18 05:33 Eos # 0.0 K/mm3 (0.0-0.4) 05/19/18 05:33 Baso # 0.0 K/mm3 (0.0-0.1) 05/19/18 05:33 Add Manual Diff Complete 05/22/18 06:49 Total Counted 100 05/22/18 06:49 Seg Neutrophils % [employer] 05/22/18 06:49 Seg Neuts % (Manual) 85.0 % (40.0-70.0) H 05/22/18 06:49 Band Neutrophils % 10.0 % 05/22/18 06:49 Lymphocytes % (Manual) 4.0 % (13.4-35.0) L 05/22/18 06:49 Reactive Lymphs % (Man) 0 % 05/22/18 06:49 Monocytes % (Manual) 1.0 % (0.0-7.3) 05/22/18 06:49 Eosinophils % (Manual) 0 % (0.0-4.3) 05/22/18 06:49 Basophils % (Manual) 0 % (0.0-1.8) 05/22/18 06:49 Metamyelocytes % 0 % 05/22/18 06:49 Myelocytes % 0 % 05/22/18 06:49 Promyelocytes % 0 % 05/22/18 06:49 Blast Cells % 0 % 05/22/18 06:49 Nucleated RBC % Not Reportable 05/22/18 06:49 Seg Neutrophils # 9.0 K/mm3 (1.8-7.7) H 05/19/18 05:33 Seg Neutrophils # Man 17.0 K/mm3 (1.8-7.7) H 05/22/18 06:49 Band Neutrophils # 2.0 K/mm3 05/22/18 06:49 Lymphocytes # (Manual) 0.8 K/mm3 (1.2-5.4) L 05/22/18 06:49 Abs React Lymphs (Man) 0.0 K/mm3 05/22/18 06:49 Monocytes # (Manual) 0.2 K/mm3 (0.0-0.8) 05/22/18 06:49 Eosinophils # (Manual) 0.0 K/mm3 (0.0-0.4) 05/22/18 06:49 Basophils # (Manual) 0.0 K/mm3 (0.0-0.1) 05/22/18 06:49 Metamyelocytes # 0.0 K/mm3 05/22/18 06:49 Myelocytes # 0.0 K/mm3 05/22/18 06:49 Promyelocytes # 0.0 K/mm3 05/22/18 06:49 Blast Cells # 0.0 K/mm3 05/22/18 06:49 WBC Morphology Not Reportable 05/22/18 06:49 Hypersegmented Neuts Not Reportable 05/22/18 06:49 Hyposegmented Neuts Not Reportable 05/22/18 06:49 Hypogranular Neuts Not Reportable 05/22/18 06:49 Smudge Cells Not Reportable 05/22/18 06:49 Toxic Granulation Not Reportable 05/22/18 06:49 Toxic Vacuolation Not Reportable 05/22/18 06:49 Dohle Bodies Not Reportable 05/22/18 06:49 Pelger-Huet Anomaly Not Reportable 05/22/18 06:49 Mahesh Rods Not Reportable 05/22/18 06:49 Platelet Estimate Consistent w auto 05/22/18 06:49 Clumped Platelets Not Reportable 05/22/18 06:49 Plt Clumps, EDTA Not Reportable 05/22/18 06:49 Large Platelets Not Reportable 05/22/18 06:49 Giant Platelets Not Reportable 05/22/18 06:49 Platelet Satelliting Not Reportable 05/22/18 06:49 Plt Morphology Comment Not Reportable 05/22/18 06:49 RBC Morphology Not Reportable 05/22/18 06:49 Dimorphic RBCs Not Reportable 05/22/18 06:49 Polychromasia Not Reportable 05/22/18 06:49 Hypochromasia 1+ 05/22/18 06:49 Poikilocytosis Not Reportable 05/22/18 06:49 Anisocytosis Not Reportable 05/22/18 06:49 Microcytosis Not Reportable 05/22/18 06:49 Macrocytosis Not Reportable 05/22/18 06:49 Spherocytes Not Reportable 05/22/18 06:49 Pappenheimer Bodies Not Reportable 05/22/18 06:49 Sickle Cells Not Reportable 05/22/18 06:49 Target Cells Not Reportable 05/22/18 06:49 Tear Drop Cells Not Reportable 05/22/18 06:49 Ovalocytes Not Reportable 05/22/18 06:49 Helmet Cells Not Reportable 05/22/18 06:49 Hernandez-Humble Bodies Not Reportable 05/22/18 06:49 Venus Rings Not Reportable 05/22/18 06:49 Nory Cells Not Reportable 05/22/18 06:49 Bite Cells Not Reportable 05/22/18 06:49 Crenated Cell Not Reportable 05/22/18 06:49 Elliptocytes Not Reportable 05/22/18 06:49 Acanthocytes (Spur) Not Reportable 05/22/18 06:49 Rouleaux Not Reportable 05/22/18 06:49 Hemoglobin C Crystals Not Reportable 05/22/18 06:49 Schistocytes Not Reportable 05/22/18 06:49 Malaria parasites Not Reportable 05/22/18 06:49 Mk Bodies Not Reportable 05/22/18 06:49 Hem Pathologist Commnt No 05/22/18 06:49 PT 18.3 Sec. (12.2-14.9) H 05/23/18 09:03 INR 1.43 (0.87-1.13) H 05/23/18 09:03 APTT 40.0 Sec. (24.2-36.6) H 05/23/18 09:03 Sodium 150 mmol/L (137-145) H 05/25/18 05:42 Potassium 3.6 mmol/L (3.6-5.0) 05/25/18 05:42 Chloride 112.5 mmol/L (98-107) H 05/25/18 05:42 Carbon Dioxide 24 mmol/L (22-30) 05/25/18 05:42 Anion Gap 17 mmol/L 05/25/18 05:42 BUN 34 mg/dL (9-20) H 05/25/18 05:42 Creatinine 1.0 mg/dL (0.8-1.5) 05/25/18 05:42 Estimated GFR > 60 ml/min 05/25/18 05:42 BUN/Creatinine Ratio 34 % 05/25/18 05:42 Glucose 102 mg/dL (75-100) H 05/25/18 05:42 POC Glucose 107 (70-105) H 05/25/18 05:49 Hemoglobin A1c 5.7 % (4-6) 05/14/18 05:05 Lactic Acid 1.10 mmol/L (0.7-2.0) 05/22/18 19:30 Calcium 8.4 mg/dL (8.4-10.2) 05/25/18 05:42 Phosphorus 4.00 mg/dL (2.5-4.5) 05/25/18 05:42 Magnesium 2.30 mg/dL (1.7-2.3) 05/25/18 05:42 Iron 24 ug/dL (49-181) L 05/16/18 07:02 TIBC 160 mcg/dL (250-450) L 05/16/18 07:02 Ferritin 325.8 ng/mL (13.0-400.0) 05/16/18 07:02 Total Bilirubin < 0.20 mg/dL (0.1-1.2) 05/13/18 04:27 AST 15 units/L (5-40) 05/13/18 04:27 ALT 10 units/L (7-56) 05/13/18 04:27 Alkaline Phosphatase 80 units/L (35-129) 05/13/18 04:27 Total Creatine Kinase 236 units/L (55-170) H 05/14/18 05:05 Total Protein 8.1 g/dL (6.3-8.2) 05/13/18 04:27 Albumin 2.8 g/dL (3.9-5) L 05/13/18 04:27 Albumin/Globulin Ratio 0.5 % 05/13/18 04:27 Prostate Specific Ag 0.96 ng/mL (0.00-4.00) 05/14/18 13:29 Vitamin B12 359.2 pg/mL (211-911) 05/16/18 07:02 Folate 5.39 ng/mL (7.3-26.0) L 05/16/18 07:02 TSH 3.180 mlU/mL (0.270-4.200) 05/14/18 05:05 PTH Intact 65.37 pg/mL (15-65) H 05/14/18 05:05 Urine Color Maria Del Rosario (Yellow) 05/21/18 15:30 Urine Turbidity Cloudy (Clear) 05/21/18 15:30 Urine pH 5.0 (5.0-7.0) 05/21/18 15:30 Ur Specific [place] 1.019 (1.003-1.030) 05/21/18 15:30 Urine Protein >500 mg/dL (Negative) 05/21/18 15:30 Urine Glucose (UA) Neg mg/dL (Negative) 05/21/18 15:30 Urine Ketones Neg mg/dL (Negative) 05/21/18 15:30 Urine Blood Mod (Negative) 05/21/18 15:30 Urine Nitrite Neg (Negative) 05/21/18 15:30 Urine Bilirubin Neg (Negative) 05/21/18 15:30 Urine Urobilinogen 4.0 mg/dL (<2.0) 05/21/18 15:30 Ur Leukocyte Esterase Tr (Negative) 05/21/18 15:30 Urine WBC (Auto) 28.0 /HPF (0.0-6.0) H 05/21/18 15:30 Urine RBC (Auto) 33.0 /HPF (0.0-6.0) 05/21/18 15:30 U Epithel Cells (Auto) 2.0 /HPF (0-13.0) 05/21/18 15:30 Urine Bacteria (Auto) 1+ /HPF (Negative) 05/21/18 15:30 Urine WBC Clumps Few /HPF 05/13/18 19:39 Urine Mucus 1+ /HPF 05/21/18 15:30 Urine Yeast (Budding) 2+ /HPF 05/21/18 15:30 Urine Creatinine 66.0 mg/dL (0.1-20.0) H 05/13/18 19:39 Urine Sodium 60 mmol/L 05/13/18 19:39 Urine Potassium 8.69 mmol/L 05/13/18 19:39 Urine Chloride 27.8 mmolL (110-250) L 05/13/18 19:39 Urine Total Protein 24 mg/dL (5-11.8) H 05/13/18 19:39 Urine Opiates Screen Presumptive negative 05/13/18 19:39 Urine Methadone Screen Presumptive negative 05/13/18 19:39 Ur Barbiturates Screen Presumptive negative 05/13/18 19:39 Ur Phencyclidine Scrn Presumptive negative 05/13/18 19:39 Ur Amphetamines Screen Presumptive negative 05/13/18 19:39 U Benzodiazepines Scrn Presumptive negative 05/13/18 19:39 Urine Cocaine Screen Presumptive negative 05/13/18 19:39 U Marijuana (THC) Screen Presumptive negative 05/13/18 19:39 Drugs of Abuse Note Disclamer 05/13/18 19:39 ZEUS Screen Negative (Negative) 05/14/18 05:05 Proteinase 3 (PR3) Ab <1.0 AI (<1.0) 05/14/18 05:05 Myeloperoxidase Ab <1.0 AI (<1.0) 05/14/18 05:05 Complement C3 147 mg/dL (82-185) 05/14/18 05:05 Complement C4 45 mg/dL (15-53) 05/14/18 05:05 Blood Type O POSITIVE 05/22/18 11:23 Antibody Screen Negative 05/22/18 11:23 Crossmatch See Detail 05/22/18 11:23
[2018-05-25] MEDS ORDERED: NACL 0.9% 1000 ML 1,000 ML IV SCH (11:00)
[2018-05-25] MEDS ORDERED: DILAUDID ONE (11:01)
[2018-05-25] MEDS ORDERED: DIPRIVAN 10 MG/ML IV ONE (11:02)
--- NOTE | 2018-05-25 11:07 | Event Note ---
Date: 05/25/18 Patient admitted with a large pelvic mass. Workup in progress. Status post bilateral neph tube placement due to hydronephrosis. He was subsequently noted to have a small below the knee DVT. He was unable to be anticoagulated due to recent neph tube placement. SCDs were placed. Repeat venous duplex every 5 days 2 were ordered. They first follow-up duplex did not show progression of thrombus. The second duplex is scheduled for later today. If this does not show progression of thrombus, then do not recommend insertion of IVC filter at this point. Patient could be anticoagulated (from neph tube standpoint) later this week (05/28/2018, POD 14). Recent notes reviewed. Anticoagulation may continue to need to be held due to pelvic mass workup.
--- NOTE | 2018-05-25 11:12 | Anesthesia Day of Surgery ---
Anesthesia Day of Surgery - Day of Surgery Patient Examined: Yes Patient H&P Reviewed: Yes Patient is NPO: Yes Beta Blockers: No Cardiac Clearance: No Pulmonary Clearance: No
--- NOTE | 2018-05-25 11:13 | Anesthesia Consultation ---
Anesthesia Consult and Med Hx Date of service: 05/25/18 - Airway Anesthetic Teeth Evaluation: Poor ROM Head & Neck: Adequate Mental/Hyoid Distance: Adequate Mallampati Class: Class II - Pulmonary Exam CTA: Yes - Cardiac Exam Cardiac Exam: No Murmur - Pre-Operative Health Status ASA Pre-Surgery Classification: ASA3 Proposed Anesthetic Plan: MAC - Pulmonary Hx Asthma: Yes SOB: No COPD: No Home Oxygen Therapy: No Hx Pneumonia: No Hx Sleep Apnea: No - Cardiovascular System Hx Hypertension: No Hx Coronary Artery Disease: No Hx Heart Attack/AMI: No Hx Angina: No Hx Percutaneous Transluminal Coronary Angioplasty (PTCA): No Hx Cardia Arrhythmia: No Hx Pacemaker: No Hx Internal Defibrillator: No Hx Valvular Heart Disease: No Hx Heart Murmur: No Hx Peripheral Vascular Disease: No - Central Nervous System Hx Neuromuscular Disorder: No Hx Seizures: No CVA: No Hx Back Pain: No Hx Psychiatric Problems: No - Gastrointestinal Hx Ulcer: No Hx Gastroesophageal Reflux Disease: No - Endocrine Hx Renal Disease: No Hx End Stage Renal Disease: No Hx Cirrhosis: No Hx Liver Disease: No Hx Insulin Dependent Diabetes: No Hx Non-Insulin Dependent Diabetes: No Hx Thyroid Disease: No Hx Hypothyroidism: No Hx Hyperthyroidism: No - Hematic Hx Anemia: No Hx Sickle Cell Disease: No - Other Systems Hx Alcohol Use: No Hx Substance Use: No Hx Cancer: No Hx Obesity: No - Additional Comments Anesthesia Medical History Comments: resolving Acute Renal insuff
[2018-05-25] MEDS ORDERED: WATER FOR IRRIG STERILE IR ONE (11:35)
--- NOTE | 2018-05-25 11:42 | Operative Report ---
Operative Report Operative Report: Date of procedure: [05/25/2018] Preprocedure diagnosis: Mass with possible distal rectal obstruction Post procedure diagnoses: Inflammatory foci in the rectum consistent with recent prostate biopsies. No evidence of rectal mass or or obstruction of the sigmoid colon up to 30 cm Procedure: Flexible sigmoidoscopy Endoscopist: Vishnu Cunningham M.D. Estimated blood loss: 0 Medications: [Propofol per anesthesia-see separate records for details.] After careful discussion of the nature and purpose of the procedure, risks, benefits, and alternatives consent was obtained. The patient was placed in the left lateral decubitus position and medicated per anesthesia-see separate records for details. A rectal exam was performed. Sphincter tone was normal. There was the impression of prostate enlargement by palpation. No nodules or masses are appreciated otherwise. The tip of the [employer] EQ 570 video scope was passed transanally and advanced under continuous direct vision to [30 cm]. Colon preparation was good up to this point. Findings included [all foci of ulceration in the distal rectum consistent with prostate biopsy sites. No mass lesions were present. The rectum and distal sigmoid colon appeared to be easily distensible. The procedure was well-tolerated overall. Conclusions: [No evidence of mass lesion obstructing the rectum or distal sigmoid colon up to 30 cm. More proximal obstruction cannot be excluded and the patient is not a candidate for colonoscopy at this time. Small ulcerated areas in the rectum are likely from recent prostate biopsies.] Plan: [No further workup GI kramer because of the patient's apparent obstruction versus ileus.] Please re contact us if we can be of further assistance. . Electronically signing: Vishnu Cunningham M.D.obstruction up to 30 cm.
--- NOTE | 2018-05-25 12:25 | Hem/Onc Progress Note ---
Assessment and Plan #Pelvic mass Large pelvic mass between bladder and rectum with large lymph nodes, s/p cystoscopy prostate area bx - prelim - sq cell ca. # CT shows bowel obstruction - NGT - sx team following Lower GI endoscopy - Conclusions: [No evidence of mass lesion obstructing the rectum or distal sigmoid colon up to 30 cm. More proximal obstruction cannot be excluded and the patient is not a candidate for colonoscopy at this time. Small ulcerated areas in the rectum are likely from recent prostate biopsies. # anemia low folate on replacement # leukocytosis on 05/22 - we will follow - likely reactive # h/o Acute kidney injury due to pelvic mass - Nephrology following. Ultrasound Kidneys showed bilat hydronephrosis CT Abd shows Pelvic mass with multiple large lymph nodes Had bilateral nephrostomy tubes placed 05/14/[address] Freeman. #Acute DVT right leg - below knee No anticoagulation for now because of bilateral nephrostomy tubes and acute abdo issues. There is plan for repeat radiology # Hypertension - hospitalist following # h/o electrolyte abn - being followed by nephrology # h/o Fever - Cystoscopy done it is very peculiar to have sq cell ca in prostate area Ct chest non contrast was done - no mention of lung mass. - Patient Problems (1) Pelvic mass in male Current Visit: Yes Status: Acute Subjective Date of service: 05/25/18 Interval history: h/o abdo pain - Bowel obstruction - seen by sx team - has NGT and NPO has nephrostomy Transfer to [facility] being looked into Objective - Constitutional Vitals: Last Vital Signs Temp 100.6 F H 05/25/18 11:40 Pulse 110 H 05/25/18 12:09 Resp 18 05/25/18 12:09 BP 153/86 05/25/18 12:09 Pulse Ox 97 05/25/18 12:09 - Labs Lab Results: Laboratory Results - last 24 hr 05/24/18 05/24/18 05/25/18 16:54 21:22 05:42 Sodium 150 H Potassium 3.6 Chloride 112.5 H Carbon Dioxide 24 Anion Gap 17 BUN 34 H Creatinine 1.0 Estimated GFR > 60 BUN/Creatinine Ratio 34 Glucose 102 H POC Glucose 100 87 Calcium 8.4 Phosphorus 4.00 Magnesium 2.30 05/25/18 05:49 Sodium Potassium Chloride Carbon Dioxide Anion Gap BUN Creatinine Estimated GFR BUN/Creatinine Ratio Glucose POC Glucose 107 H Calcium Phosphorus Magnesium
--- NOTE | 2018-05-25 12:59 | Progress Note ---
Assessment and Plan Pt status quo GI note noted. Flex sig - no evidence of any rectal or sigmoid obst will schedule for diverting colostomy Objective Vital Signs - 12hr 05/25/18 05/25/18 05/25/18 05:37 11:04 11:06 Temperature 98.1 F 97.8 F 97.8 F Pulse Rate 115 H 127 H 127 H Respiratory 32 H 22 22 Rate Blood Pressure 158/98 143/92 143/92 O2 Sat by Pulse 95 93 93 Oximetry 05/25/18 05/25/18 05/25/18 11:40 11:49 11:52 Temperature 100.6 F H Pulse Rate 106 H 68 Respiratory 16 35 H 28 H Rate Blood Pressure 134/79 149/78 O2 Sat by Pulse 99 96 97 Oximetry 05/25/18 05/25/18 05/25/18 11:58 12:09 12:25 Temperature Pulse Rate 100 H 110 H 115 H Respiratory 32 H 18 26 H Rate Blood Pressure 142/87 153/86 144/89 O2 Sat by Pulse 97 97 97 Oximetry 05/25/18 12:40 Temperature Pulse Rate Respiratory Rate Blood Pressure 147/81 O2 Sat by Pulse Oximetry - Labs 05/23/18 09:03 05/25/18 05:42 Diabetes panel 05/25/18 Range/Units 05:42 Sodium 150 H (137-145) mmol/L Potassium 3.6 (3.6-5.0) mmol/L Chloride 112.5 H (98-107) mmol/L Carbon Dioxide 24 (22-30) mmol/L BUN 34 H (9-20) mg/dL Creatinine 1.0 (0.8-1.5) mg/dL Glucose 102 H (75-100) mg/dL Calcium 8.4 (8.4-10.2) mg/dL Calcium panel 05/25/18 Range/Units 05:42 Calcium 8.4 (8.4-10.2) mg/dL Phosphorus 4.00 (2.5-4.5) mg/dL Pituitary panel 05/25/18 Range/Units 05:42 Sodium 150 H (137-145) mmol/L Potassium 3.6 (3.6-5.0) mmol/L Chloride 112.5 H (98-107) mmol/L Carbon Dioxide 24 (22-30) mmol/L BUN 34 H (9-20) mg/dL Creatinine 1.0 (0.8-1.5) mg/dL Glucose 102 H (75-100) mg/dL Calcium 8.4 (8.4-10.2) mg/dL Adrenal panel 05/25/18 Range/Units 05:42 Sodium 150 H (137-145) mmol/L Potassium 3.6 (3.6-5.0) mmol/L Chloride 112.5 H (98-107) mmol/L Carbon Dioxide 24 (22-30) mmol/L BUN 34 H (9-20) mg/dL Creatinine 1.0 (0.8-1.5) mg/dL Glucose 102 H (75-100) mg/dL Calcium 8.4 (8.4-10.2) mg/dL
--- NOTE | 2018-05-25 15:52 | Event Note ---
Date: 05/25/18 Called to see for tachycardia. HR 160s. patient denies chest pain. Sinus tachycardia 168 on monitor. He had just come back from flex sigmoidoscopy. Will consult cardiology. May also need clearance for surgery tomorrow-diverting colostomy. Also consult pulmonology. Get CT Angio Chest to r/o pulmonary embolism. Nephro says OK to do CT Angio. Vasc surg says ok to give Heparin drip if pulm embolism.
--- NOTE | 2018-05-25 16:01 | Consultation ---
History of Present Illness Consult date: 05/25/18 Requesting physician: CODY HACKETT Reason for consult: other (Acute Hypoxemic Respiratory Failure; Sepsis Syndrome) History of present illness: PCCM CONSULT NOTE (Full dictation # [id number]) Please see dictated notes for full details Past History Past Medical History: No medical history Past Surgical History: No surgical history Social history: single, Lives alone, smoking (Smokes 1 pack cigarettes daily), full code, other (Alcohol once to twice a week) Family history: no significant family history Medications and Allergies Allergies Allergy/AdvReac Type Severity Reaction Status Date / Time No Known Allergies Allergy Verified 10/31/16 11:50 Home Medications Medication Instructions Recorded Confirmed Last Taken Type No Known Home Medications [No 05/13/18 05/13/18 Unknown History Reported Home Medications] Active Meds: Active Medications Acetaminophen (Tylenol) 650 mg OR Q6H PRN PRN Reason: Pain, Mild (1-3) Last Admin: 05/24/18 00:24 Dose: 650 mg Acetaminophen (Tylenol) 650 mg PO Q6H PRN PRN Reason: Pain, Mild (1-3) Amlodipine Besylate (Norvasc) 10 mg PO QDAY [facility] Last Admin: 05/25/18 09:49 Dose: Not Given Clonidine HCl (Catapres) 0.2 mg PO Q12H [facility] Last Admin: 05/25/18 06:18 Dose: Not Given Ferrous Sulfate (Feosol) 325 mg PO BID [facility] Last Admin: 05/25/18 09:49 Dose: Not Given Folic Acid (Folvite) 1 mg PO QDAY [facility] Last Admin: 05/25/18 09:49 Dose: Not Given Hydralazine HCl (Apresoline) 20 mg IV Q4HR PRN PRN Reason: For SBP>170 or DBP>110 Last Admin: 05/25/18 00:00 Dose: 20 mg Hydralazine HCl (Apresoline) 100 mg PO Q8HR [facility] Last Admin: 05/25/18 14:05 Dose: Not Given Levofloxacin/Dextrose (Levaquin 500mg/100ml) 500 mg in 100 mls @ 100 mls/hr IV Q24HR [facility]; Protocol Last Admin: 05/25/18 10:05 Dose: 100 mls/hr Vancomycin HCl (Vancomycin/Ns 1 Gm/250 Ml) 1 gm in 250 mls @ 125 mls/hr IV Q12H [facility] Last Admin: 05/25/18 14:05 Dose: 125 mls/hr Amino Acids/Electrolytes/Dextrose (Tpn Adult) 2,016 mls @ 84 mls/hr IV DAILY@ 1999 [facility]; Protocol Stop: 05/25/18 19:59 Last Admin: 05/24/18 21:40 Dose: 84 mls/hr Fat Emulsion Intravenous (Intralipid 20%) 250 mls @ 21 mls/hr IV DAILY@1999 [facility] Stop: 05/26/18 08:00 Amino Acids/Electrolytes/Dextrose (Tpn Adult) 2,016 mls @ 84 mls/hr IV DAILY@ 1999 [facility]; Protocol Stop: 05/26/18 19:59 Dextrose/Sodium Chloride (D5ns 0.2%) 1,000 mls @ 75 mls/hr IV DIRECT [facility] Metoprolol Tartrate (Lopressor) 100 mg PO BID [facility] Last Admin: 05/25/18 09:49 Dose: Not Given Morphine Sulfate (Morphine) 2 mg IV Q4H PRN PRN Reason: Pain, Moderate (4-6) Last Admin: 05/25/18 06:16 Dose: 2 mg Oxycodone/Acetaminophen (Percocet 5/325) 2 tab PO Q6H PRN PRN Reason: Pain, Moderate (4-6) Last Admin: 05/22/18 06:15 Dose: 2 tab Physical Examination Vital signs: Vital Signs Temp Pulse Resp BP Pulse Ox 97.8 F 99 H 16 198/120 98 05/13/18 04:09 05/13/18 04:09 05/13/18 04:09 05/13/18 04:09 05/13/18 04:09 Results - Laboratory Findings CBC and BMP: 05/23/18 09:03 05/25/18 05:42 PT/INR, D-dimer PT 18.3 Sec. (12.2-14.9) H 05/23/18 09:03 INR 1.43 (0.87-1.13) H 05/23/18 09:03 Abnormal lab findings: Abnormal Labs 05/13/18 05/13/18 05/13/18 04:27 04:27 19:39 WBC RBC 3.13 L Hgb 9.4 L Hct 26.8 L MCHC 35 H Lymph % (Auto) [place] % (Auto) 9.6 H Lymph # [place] # Seg Neutrophils % Seg Neuts % (Manual) Lymphocytes % (Manual) Seg Neutrophils # Seg Neutrophils # Man Lymphocytes # (Manual) PT INR APTT Sodium 132 L Potassium 5.5 H Chloride 94.1 L Carbon Dioxide 19 L BUN 72 H Creatinine 14.4 H Glucose POC Glucose Calcium Phosphorus Magnesium Iron TIBC Total Creatine Kinase Albumin 2.8 L Folate PTH Intact Urine WBC (Auto) Urine Creatinine 66.0 H Urine Chloride 27.8 L Urine Total Protein 24 H Crossmatch 05/13/18 05/14/18 05/14/18 20:00 05:05 05:05 WBC RBC Hgb Hct MCHC Lymph % (Auto) [place] % (Auto) Lymph # [place] # Seg Neutrophils % Seg Neuts % (Manual) Lymphocytes % (Manual) Seg Neutrophils # Seg Neutrophils # Man Lymphocytes # (Manual) PT INR APTT Sodium 132 L 131 L Potassium 5.2 H 5.8 H Chloride 93.0 L 95.6 L Carbon Dioxide 19 L 20 L BUN 74 H 81 H Creatinine 15.0 H 16.6 H Glucose 134 H 127 H POC Glucose Calcium 8.2 L 7.9 L Phosphorus 6.30 H Magnesium Iron TIBC Total Creatine Kinase 236 H Albumin Folate PTH Intact 65.37 H Urine WBC (Auto) Urine Creatinine Urine Chloride Urine Total Protein Crossmatch 05/14/18 05/14/18 05/14/18 09:28 10:56 13:29 WBC RBC Hgb Hct MCHC Lymph % (Auto) [place] % (Auto) Lymph # [place] # Seg Neutrophils % Seg Neuts % (Manual) Lymphocytes % (Manual) Seg Neutrophils # Seg Neutrophils # Man Lymphocytes # (Manual) PT INR APTT 38.2 H Sodium Potassium Chloride Carbon Dioxide BUN Creatinine Glucose POC Glucose 127 H 126 H Calcium Phosphorus Magnesium Iron TIBC Total Creatine Kinase Albumin Folate PTH Intact Urine WBC (Auto) Urine Creatinine Urine Chloride Urine Total Protein Crossmatch 05/15/18 05/15/18 05/16/18 08:06 08:06 07:02 WBC RBC 2.84 L 2.74 L Hgb 8.5 L 8.5 L Hct 24.2 L 23.5 L MCHC 35 H 36 H Lymph % (Auto) [place] % (Auto) 10.4 H 11.0 H Lymph # 1.1 L [place] # 0.9 H Seg Neutrophils % 72.6 H Seg Neuts % (Manual) Lymphocytes % (Manual) Seg Neutrophils # Seg Neutrophils # Man Lymphocytes # (Manual) PT INR APTT Sodium Potassium Chloride Carbon Dioxide 19 L BUN 66 H Creatinine 12.0 H Glucose 115 H POC Glucose Calcium 8.1 L Phosphorus Magnesium Iron TIBC Total Creatine Kinase Albumin Folate PTH Intact Urine WBC (Auto) Urine Creatinine Urine Chloride Urine Total Protein Crossmatch 05/16/18 05/16/18 05/17/18 07:02 07:02 05:08 WBC RBC 2.78 L Hgb 8.2 L Hct 23.9 L MCHC Lymph % (Auto) [place] % (Auto) 13.9 H Lymph # [place] # 0.9 H Seg Neutrophils % Seg Neuts % (Manual) Lymphocytes % (Manual) Seg Neutrophils # Seg Neutrophils # Man Lymphocytes # (Manual) PT INR APTT Sodium Potassium Chloride Carbon Dioxide BUN 28 H Creatinine 2.4 H D Glucose POC Glucose Calcium 8.3 L Phosphorus Magnesium 1.50 L Iron 24 L TIBC 160 L Total Creatine Kinase Albumin Folate 5.39 L PTH Intact Urine WBC (Auto) Urine Creatinine Urine Chloride Urine Total Protein Crossmatch 05/17/18 05/18/18 05/18/18 05:08 05:57 05:57 WBC RBC 2.79 L Hgb 8.3 L Hct 24.0 L MCHC 35 H Lymph % (Auto) [place] % (Auto) 11.8 H Lymph # [place] # 0.9 H Seg Neutrophils % Seg Neuts % (Manual) Lymphocytes % (Manual) Seg Neutrophils # Seg Neutrophils # Man Lymphocytes # (Manual) PT INR APTT Sodium Potassium Chloride Carbon Dioxide BUN Creatinine Glucose POC Glucose Calcium 7.7 L 8.0 L Phosphorus Magnesium 1.60 L Iron TIBC Total Creatine Kinase Albumin Folate PTH Intact Urine WBC (Auto) Urine Creatinine Urine Chloride Urine Total Protein Crossmatch 05/19/18 05/19/18 05/20/18 05:33 05:33 05:38 WBC RBC 2.95 L Hgb 8.8 L Hct 25.8 L MCHC Lymph % (Auto) 10.1 L [place] % (Auto) Lymph # 1.1 L [place] # Seg Neutrophils % 85.2 H Seg Neuts % (Manual) Lymphocytes % (Manual) Seg Neutrophils # 9.0 H Seg Neutrophils # Man Lymphocytes # (Manual) PT INR APTT Sodium 135 L Potassium Chloride Carbon Dioxide BUN Creatinine Glucose 132 H POC Glucose Calcium 7.8 L 8.3 L Phosphorus Magnesium 1.40 L Iron TIBC Total Creatine Kinase Albumin Folate PTH Intact Urine WBC (Auto) Urine Creatinine Urine Chloride Urine Total Protein Crossmatch 05/21/18 05/21/18 05/22/18 04:46 15:30 06:49 WBC 20.0 H RBC 2.70 L Hgb 7.8 L Hct 23.3 L MCHC Lymph % (Auto) [place] % (Auto) Lymph # [place] # Seg Neutrophils % Seg Neuts % (Manual) 85.0 H Lymphocytes % (Manual) 4.0 L Seg Neutrophils # Seg Neutrophils # Man 17.0 H Lymphocytes # (Manual) 0.8 L PT INR APTT Sodium 135 L Potassium 3.5 L Chloride Carbon Dioxide 21 L BUN 22 H Creatinine Glucose POC Glucose Calcium 8.1 L Phosphorus Magnesium Iron TIBC Total Creatine Kinase Albumin Folate PTH Intact Urine WBC (Auto) 28.0 H Urine Creatinine Urine Chloride Urine Total Protein Crossmatch 05/22/18 05/22/18 05/23/18 06:49 11:23 09:03 WBC RBC Hgb Hct MCHC Lymph % (Auto) [place] % (Auto) Lymph # [place] # Seg Neutrophils % Seg Neuts % (Manual) Lymphocytes % (Manual) Seg Neutrophils # Seg Neutrophils # Man Lymphocytes # (Manual) PT INR APTT Sodium 134 L Potassium 3.5 L Chloride Carbon Dioxide 21 L BUN 35 H 36 H Creatinine 1.7 H Glucose 107 H POC Glucose Calcium 7.9 L Phosphorus Magnesium 2.50 H Iron TIBC Total Creatine Kinase Albumin Folate PTH Intact Urine WBC (Auto) Urine Creatinine Urine Chloride Urine Total Protein Crossmatch See Detail 05/23/18 05/23/18 05/23/18 09:03 09:03 17:34 WBC 26.3 H RBC 3.57 L Hgb 10.4 L Hct 31.1 L D MCHC Lymph % (Auto) [place] % (Auto) Lymph # [place] # Seg Neutrophils % Seg Neuts % (Manual) Lymphocytes % (Manual) Seg Neutrophils # Seg Neutrophils # Man Lymphocytes # (Manual) PT 18.3 H INR 1.43 H APTT 40.0 H Sodium Potassium Chloride Carbon Dioxide BUN Creatinine Glucose POC Glucose 108 H Calcium Phosphorus Magnesium Iron TIBC Total Creatine Kinase Albumin Folate PTH Intact Urine WBC (Auto) Urine Creatinine Urine Chloride Urine Total Protein Crossmatch 05/23/18 05/24/18 05/24/18 21:14 04:43 08:04 WBC RBC Hgb Hct MCHC Lymph % (Auto) [place] % (Auto) Lymph # [place] # Seg Neutrophils % Seg Neuts % (Manual) Lymphocytes % (Manual) Seg Neutrophils # Seg Neutrophils # Man Lymphocytes # (Manual) PT INR APTT Sodium 146 H Potassium Chloride 108.6 H Carbon Dioxide BUN 33 H Creatinine Glucose 109 H POC Glucose 110 H 106 H Calcium 8.3 L Phosphorus Magnesium 2.50 H Iron TIBC Total Creatine Kinase Albumin Folate PTH Intact Urine WBC (Auto) Urine Creatinine Urine Chloride Urine Total Protein Crossmatch 05/25/18 05/25/18 05:42 05:49 WBC RBC Hgb Hct MCHC Lymph % (Auto) [place] % (Auto) Lymph # [place] # Seg Neutrophils % Seg Neuts % (Manual) Lymphocytes % (Manual) Seg Neutrophils # Seg Neutrophils # Man Lymphocytes # (Manual) PT INR APTT Sodium 150 H Potassium Chloride 112.5 H Carbon Dioxide BUN 34 H Creatinine Glucose 102 H POC Glucose 107 H Calcium Phosphorus Magnesium Iron TIBC Total Creatine Kinase Albumin Folate PTH Intact Urine WBC (Auto) Urine Creatinine Urine Chloride Urine Total Protein Crossmatch
--- NOTE | 2018-05-25 16:10 | Consultation ---
History of Present Illness Consult date: 05/25/18 Requesting physician: CODY HACKETT Consult reason: tachycardia History of present illness: The patient is a 52 YO male with a past medical history significant for uncontrolled HTN who came to the ER for evaluation of bilateral leg swelling, SOB and no urine output. He had abdominal pain, bilateral leg swelling, stopped making urine. Currently the patient has had a weight loss of over 50 pounds in the last 3 months. He was not taking any meds on a regular basis and has not seen a physician except ER visit last year. Since admission, he has been diagnosed with pelvic mass, SBO, MARYLOU, acute DVT in RLE, anemia, ? sepsis. He underwent a biopsy with placement of bilateral nephrostomy tubes. Pt underwent flex sigmoidoscopy today and has tentatively been scheduled for diverting colostomy tomorrow. This afternoon, he developed tachycardia and thus cardiology has been consulted. ECG demonstrates sinus tachycardia. On evaluation , pt denies any current chest pain or palpitations. He is currently experiencing SOB. Past History Past Medical History: No medical history Past Surgical History: No surgical history Social history: single, Lives alone, smoking (Smokes 1 pack cigarettes daily), full code, other (Alcohol once to twice a week) Family history: no significant family history Medications and Allergies Allergies Allergy/AdvReac Type Severity Reaction Status Date / Time No Known Allergies Allergy Verified 10/31/16 11:50 Home Medications Medication Instructions Recorded Confirmed Last Taken Type No Known Home Medications [No 05/13/18 05/13/18 Unknown History Reported Home Medications] Active Meds: Active Medications Acetaminophen (Tylenol) 650 mg CA Q6H PRN PRN Reason: Pain, Mild (1-3) Last Admin: 05/24/18 00:24 Dose: 650 mg Acetaminophen (Tylenol) 650 mg PO Q6H PRN PRN Reason: Pain, Mild (1-3) Acetylcysteine (Mucomyst Oral) 600 mg PO Q12HR [facility] Amlodipine Besylate (Norvasc) 10 mg PO QDAY [facility] Last Admin: 05/25/18 09:49 Dose: Not Given Clonidine HCl (Catapres) 0.2 mg PO Q12H [facility] Last Admin: 05/25/18 06:18 Dose: Not Given Ferrous Sulfate (Feosol) 325 mg PO BID [facility] Last Admin: 05/25/18 09:49 Dose: Not Given Folic Acid (Folvite) 1 mg PO QDAY [facility] Last Admin: 05/25/18 09:49 Dose: Not Given Hydralazine HCl (Apresoline) 20 mg IV Q4HR PRN PRN Reason: For SBP>170 or DBP>110 Last Admin: 05/25/18 00:00 Dose: 20 mg Hydralazine HCl (Apresoline) 100 mg PO Q8HR [facility] Last Admin: 05/25/18 14:05 Dose: Not Given Levofloxacin/Dextrose (Levaquin 500mg/100ml) 500 mg in 100 mls @ 100 mls/hr IV Q24HR [facility]; Protocol Last Admin: 05/25/18 10:05 Dose: 100 mls/hr Vancomycin HCl (Vancomycin/Ns 1 Gm/250 Ml) 1 gm in 250 mls @ 125 mls/hr IV Q12H [facility] Last Admin: 05/25/18 14:05 Dose: 125 mls/hr Amino Acids/Electrolytes/Dextrose (Tpn Adult) 2,016 mls @ 84 mls/hr IV DAILY@ 1999 [facility]; Protocol Stop: 05/25/18 19:59 Last Admin: 05/24/18 21:40 Dose: 84 mls/hr Fat Emulsion Intravenous (Intralipid 20%) 250 mls @ 21 mls/hr IV DAILY@1999 [facility] Stop: 05/26/18 08:00 Amino Acids/Electrolytes/Dextrose (Tpn Adult) 2,016 mls @ 84 mls/hr IV DAILY@ 1999 [facility]; Protocol Stop: 05/26/18 19:59 Dextrose/Sodium Chloride (D5ns 0.2%) 1,000 mls @ 75 mls/hr IV DIRECT [facility] Metoprolol Tartrate (Lopressor) 100 mg PO BID [facility] Last Admin: 05/25/18 09:49 Dose: Not Given Morphine Sulfate (Morphine) 2 mg IV Q4H PRN PRN Reason: Pain, Moderate (4-6) Last Admin: 05/25/18 06:16 Dose: 2 mg Oxycodone/Acetaminophen (Percocet 5/325) 2 tab PO Q6H PRN PRN Reason: Pain, Moderate (4-6) Last Admin: 05/22/18 06:15 Dose: 2 tab Review of Systems Constitutional: weight loss, no weight gain, no fever, no chills, no sweats Ears, nose, mouth and throat: no ear pain, no nose pain, no sinus pressure, no sinus pain Cardiovascular: shortness of breath, no chest pain, no orthopnea, no palpitations, no rapid/irregular heart beat, no edema, no syncope, no lightheadedness Respiratory: shortness of breath, no cough, no congestion, no wheezing, no pain on inspiration Gastrointestinal: abdominal pain Genitourinary Male: no dysuria, no hematuria Musculoskeletal: no neck stiffness, no neck pain Integumentary: no rash, no pruritis, no redness, no sores, no wounds Neurological: no head injury, no paralysis, no weakness, no parathesias, no numbness, no tingling, no seizures, no syncope Psychiatric: no anxiety Endocrine: no cold intolerance, no heat intolerance Hematologic/Lymphatic: no easy bruising, no easy bleeding Allergic/Immunologic: no urticaria, no wheezing Physical Examination Vital Signs Temp Pulse Resp BP Pulse Ox 97.8 F 99 H 16 198/120 98 05/13/18 04:09 05/13/18 04:09 05/13/18 04:09 05/13/18 04:09 05/13/18 04:09 General appearance: mild distress, cachectic, other (SOB) Neck: Positive: neck supple, trachea midline Cardiac: Positive: Regular Rhythm, S1/S2, Tachycardia Lungs: Positive: Decreased Breath Sounds Neuro: Positive: Grossly Intact Skin: Negative: Rash Musculoskeletal: No Pain Extremities: Absent: edema Results 05/23/18 09:03 05/25/18 05:42 Comprehensive Metabolic Panel 05/25/18 Range/Units 05:42 Sodium 150 H (137-145) mmol/L Potassium 3.6 (3.6-5.0) mmol/L Chloride 112.5 H (98-107) mmol/L Carbon Dioxide 24 (22-30) mmol/L BUN 34 H (9-20) mg/dL Creatinine 1.0 (0.8-1.5) mg/dL Glucose 102 H (75-100) mg/dL Calcium 8.4 (8.4-10.2) mg/dL - Imaging and Cardiology Echo: pending EKG: report reviewed, image reviewed EKG interpretations - Telemetry EKG Rhythm: Sinus Tachycardia - EKG Sinus rhythms and dysrhythmias: sinus tachycardia Assessment and Plan Assessment: Sinus tachycardia Dyspnea DVT / ? PE SBO / Pelvic mass MARYLOU HTN Anemia ? Sepsis Plan: Obtain chest CTA per primary to r/o PE. Obtain echo. Cont lopressor. Cont supportive management. The patient has been seen in conjunction with Dr. Paz who agrees with the assessment and plan of care.
[2018-05-25] MEDS: MUCOMYST ORAL PO SCH ×2 (16:57→22:09)
[2018-05-25] MEDS ORDERED: D5NS 0.2% 1,000 ML IV SCH (17:00)
--- NOTE | 2018-05-25 19:16 | Cat Scan Report ---
FINAL REPORT EXAM: CT ANGIO CHEST HISTORY: Tachycardia, shortness of breath TECHNIQUE: Enhanced CT of the chest at 2.5 mm axial intervals following a pulmonary embolism protocol. Coronal and sagittal imaging were also obtained. Coronal oblique MIP projections were obtained. Contrast: Intravenous contrast given PRIORS: CT chest 05/22/2018 FINDINGS: There is no evidence for pulmonary embolism in the main pulmonary artery, right and left pulmonary arteries or their major distributions. However, CT does not exclude distal pulmonary emboli. Atelectasis in each lung base posteriorly is noted. Small bilateral pleural effusions are seen. There is no evidence for parenchymal nodules, consolidation, or congestion. There is bilateral axillary adenopathy. There is also an enlarged lymph node in the subcarinal region measuring 2.6 x 2.0 cm (axial image 61, series 2). There is a small low-density pericardial effusion again noted. No evidence for ventricular chamber enlargement is seen. Nasogastric tube terminates in the stomach. Images through the lung bases include the upper abdomen which show ascites around the liver and spleen, unchanged. Bony structures demonstrate no focal abnormalities. IMPRESSION: 1. no evidence for pulmonary embolism. Otherwise stable exam. 2. bibasilar linear atelectasis 3. Small bilateral effusions 4. Pericardial effusion 5. ascites in the abdomen
[2018-05-25] MEDS ORDERED: INTRALIPID 20% 250 ML IV SCH (20:00)
[2018-05-25] MEDS ORDERED: TPN ADULT 2,016 ML IV SCH (20:00)
[2018-05-25] MEDS ORDERED: NACL 0.9% 250ML 250 ML IV ONE (21:05)
[2018-05-25] MEDS ORDERED: NACL 0.9% 1000 ML 1,000 ML IV ONE (22:05)
[2018-05-25] MEDS: TYLENOL PR PRN (22:16)
[2018-05-25] MEDS: ZOSYN/NS 4.5GM/100ML 4.5 GM/100 ML VIAL IV SCH (23:13)
[2018-05-25 23:48] LABS: Creatine Kinase MB 2.3 ng/mL (0.0-4.0)
[2018-05-26] MEDS: VANCOMYCIN/NS 1 GM/250 ML 1 GM/250 ML BAG IV SCH (00:05)
[2018-05-26] MEDS: TYLENOL PR PRN (00:06)
--- NOTE | 2018-05-26 01:33 | Consultation ---
PULMONARY CRITICAL CARE CONSULTATION NOTE CONSULTING PHYSICIAN: Farzad Smiley MD REASON FOR CONSULTATION: Acute respiratory failure, sepsis, acute kidney injury. CHIEF COMPLAINT AND HISTORY OF PRESENT ILLNESS: The patient is a 52-year-old male who had no past medical history until he showed up in the Emergency Room on 05/13/2018, about 12 days ago complaining of bilateral lower extremity swelling which has been going on for about a week complaining of shortness of breath, dyspnea on exertion, abdominal cramps and stated that he had been oliguric essentially for about 5 days. He denied chest pain. He denied any prior history. In the ER, his serum creatinine was 14.4. He was diagnosed with an acute kidney injury, hypertensive urgency. He was started on treatment and apparently admitted to the medical floor. He has remained on the medical floor since then; however, he has had to have different interventions since he was eventually diagnosed with a small bowel obstruction. He ended up with weight loss of about 50 pounds in the preceding 3 months. A large pelvic mass was seen between the bladder and rectum with large lymph nodes. 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 Through this hospitalization, he has required the placement of nephrostomy tubes. Post bilateral nephrostomy tubes placement, he was found to have small below the knee DVT. Because of the recent surgery, anticoagulation was not started. Today, he was found to be tachycardic with tachypnea, increasing shortness of breath. He had just come back from a flexible sigmoidoscopy. Of note, he was ultimately diagnosed with bladder cancer, which caused extrinsic bowel obstruction. He is tentatively scheduled for a diverting colostomy to be done tomorrow. We were asked to assist because of the deterioration in his respiratory status. When I stopped by to see him, he was resting in bed. He was indeed tachypneic. He was able to answer questions appropriately. He actually denied any significant change in his shortness of breath in the preceding 48-72 hours. He denied gross or streaky hemoptysis. He denied any pleuritic chest pain or other chest pain. He denied nausea, vomiting, or overt aspiration. The above is as much of the history of presentation as I have. PAST MEDICAL HISTORY: Denied. PAST SURGICAL HISTORY: Denied. MEDICATIONS: Medications he was on at the time I stopped by to see him according to the medication administration record included the following: Tylenol 650 mg p.o. q.6 hours p.r.n. mild pain, oral Mucomyst 600 mg p.o. q.12 hours scheduled, TPN, amlodipine 10 mg p.o. daily, clonidine 0.2 mg p.o. q.12 hours, lipid infusion, intralipids 20%, folic acid 1 tablet p.o. daily, hydralazine 100 mg p.o. q. 8 hours as well as 20 mg IV q. 4 hours p.r.n. systolic blood pressure greater than 170, Levaquin 500 mg IV daily, Lopressor 100 mg p.o. b.i.d., morphine sulfate 2 mg IV q.4 hours p.r.n. moderate pain, and vancomycin 1 gram IV q.12 hours. ALLERGIES: No known drug allergies. DIET: Cachectic looking gentleman admitted to a 50-pound weight loss in about 3 months. FAMILY AND SOCIAL HISTORY: Apparently, he is single, was living alone. He had a 10+ packed year tobacco smoking history. Denied alcohol abuse. Denied illicit drug use or abuse. Otherwise, no significant family history. REVIEW OF SYSTEMS: Difficult to obtain from the patient secondary to his medical status. He had anuria essentially coming in to the hospital. He denied any gross hematochezia or melena at that time. Denied gross hematuria. Denied hemoptysis. Denied hematemesis, denied any palpitations. He denied heat or cold intolerance. Denied polydipsia or polyuria. Complete 13-system review of systems is obtained. Pertinent positives and/or negatives as in body of the history above, otherwise noncontributory. PHYSICAL EXAMINATION: VITAL SIGNS: At initial presentation, he was afebrile, temperature 97.8 degrees Fahrenheit, pulse 99, respiratory rate 16, blood pressure 198/120, oxygen sats 98% at that time, inspired oxygen concentration was not recorded. He has had T-max during this admission of 102.5. Most recent temperature 99 degrees Fahrenheit, pulse is 152. Blood pressure 147/88. Currently, at the time of my evaluation, O2 sats were 98%; however, that was on 2 liters nasal cannula. GENERAL: He is a middle-aged male, who looks chronically ill, normocephalic with temporal wasting, otherwise with moderately increased respiratory effort. HEAD, EYES, EARS, NOSE, AND THROAT: He is anicteric. No conjunctival erythema. Oropharynx was dry. Oropharynx was a Mallampati #2 oropharynx. Grossly, there were no palpable lymph nodes in the supraclavicular or submandibular lymph node chains. No gross thyromegaly. LUNGS: Auscultation of both lung harrison, diminished bilateral breath sounds were heard with slightly diminished bibasilar air entry as well as positive for bibasilar rales, no wheezing. CARDIAC: Heart sounds 1 and 2 were heard at the time of my evaluation, irregular tachycardia. No rubs or murmurs. ABDOMEN: Firm, but not tensed, distended, mildly tender diffusely. No palpable hepatosplenomegaly. Bowel sounds were positive, but diminished. EXTREMITIES: Without overt digital clubbing, cyanosis, or pedal edema. Dorsalis pedis pulses were palpable bilaterally. NEUROLOGIC: Pupils were equal, round, about 4 mm, reactive to light. Extraocular muscle movements were intact. He moved all 4 extremities spontaneously. SKIN: Poor turgor without overt cellulitis or rash. LABORATORY DATA: From my review are as follows: Admission white cell count was 7800 with hemoglobin of 9.4, hematocrit of 26.8, platelet count of 363. Serum sodium was 132, potassium 5.5, chloride 94, bicarbonate 19, BUN 72, creatinine 14.4, glucose was 94. Liver function tests were within normal limits except for albumin that was low at 2.8. TSH was within normal limits. Urinalysis at that time showed trace leukocyte esterase, 4 white cells per high powered field. Urine drug screen was negative. ZEUS screen was negative. Complement levels were within expected limits, C3-C4. Most recent blood tests, most recent CBC 26,300 that is from a couple of days a week ago is the white count, hemoglobin is 10.4. Serum sodium 150 as of today, BUN 34, creatinine 1.0. All blood cultures and urine cultures, no growth to date. Chest x-ray was done at initial presentation. I have reviewed the chest x-ray as well as the radiologist's interpretation. No overt cardiomegaly, a small left pleural effusion versus atelectasis versus pneumonia. Appears to be some pulmonary vascular congestion bilaterally. Again, borderline cardiomegaly. No gross pneumothorax, no gross bony fracture. A CT of the abdomen and pelvis was done, it was noncontrast. It reveals left lower lobe atelectasis and infiltrate. The main finding was a large necrotic mass posterior to the bladder and anterior to the rectum, 8.5 x 10.8 x 8.1 cm. That was a noncontrast film. A CT scan of the chest without contrast was done a couple of days ago. I have reviewed. The mediastinal windows obviously noncontrast did not seem to show any overt mediastinal adenopathy. He has bibasilar dependent atelectasis and consolidation in the bases. No gross pleural effusions. Bilateral lower extremity Dopplers were done today, result is pending. He did have bilateral lower extremity Dopplers done on the 2nd about 10 days ago, which showed an acute DVT in the right lower extremity. ASSESSMENT: 1. Acute hypoxemic respiratory failure, possibly secondary to 2. 2. Bilateral pneumonia, possibly aspiration. 3. Sepsis syndrome. 4. Acute kidney injury secondary to obstructive uropathy. 5. Bladder cancer. 6. Bowel obstruction secondary to extrinsic compression. 7. Acute deep venous thrombosis. 8. Hypertensive urgency. 9. Hyperkalemia, now resolved. 10. Severe protein calorie malnutrition. 11. Hypernatremia. 12. Hypochloremia. 13. Anemia, normocytic. PLAN A CT angiogram is going to be ordered to rule out clot migration and acute PE as the cause for his sudden tachycardia and tachypnea. I will certainly be discussing with the attending to see if it is safe from a surgical standpoint to begin him on IV heparin therapy on full anticoagulation. Supplemental oxygen will be continued to keep sats greater than or equal to about 90%. There is an element of atelectasis at play dependent. I will deploy bilevel positive air pressure ventilation therapy at bedtime to help recruit alveoli p.r.n. during the day. Aspiration precautions will be maintained. Bronchodilators will be ordered. Pulmonary hygiene will be per the respiratory therapist. We will continue broad spectrum antibiotic therapy. Deescalate based on the results of clinical and microbiologic data. We will get a lactic acid level and a CRP level to assist with antibiotic de-escalation. He will be placed on GI prophylaxis, DVT prophylaxis or full anticoagulation depending on the recommendations of the surgeon. Flu and pneumonia vaccination will be per protocol. Now, perhaps the 800-pound elephant in the room is the bladder cancer and its management I will defer to the urologist from this standpoint. It is probably responsible for the " Thank you very much for the consult. I should mention he will be transferred to the step-down unit for close observation on telemetry monitoring. We will follow along. We will make further recommendations as the picture progresses/becomes clearer. We will have a short leash to transfer him to the Intensive Care Unit if he should decompensate further. JOB# [id number] DALILA/ALTA CUENCA
--- NOTE | 2018-05-26 02:12 | XRay Report ---
FINAL REPORT EXAM: XR CHEST 1V AP HISTORY: Dyspnea/Tachypnea. TECHNIQUE: A portable upright view of the chest was obtained and compared to the study of 05/16/2018. FINDINGS: The heart size and vascularity appear normal. There are no localized infiltrates or effusions. There is an NG tube placed with the tip in good position in the stomach. The bones and soft tissues do not show any acute changes. IMPRESSION: No evidence of congestion or infiltrates. Satisfactory placement of NG tube since the previous study.
[2018-05-26 02:42] LABS: Hematocrit 35.8 % (35.5-45.6); Hemoglobin 11.6 gm/dl (11.8-15.2); Mean Corpuscular HGB Conc 32 % (32-34); Mean Corpuscular Hemoglobin 29 pg (28-32); Mean Corpuscular Volume 90 fl (84-94); Platelet Count 424 K/mm3 (140-440); Red Blood Count 3.98 M/mm3 (3.65-5.03); Red Cell Distribution Width 14.9 % (13.2-15.2)
[2018-05-26 04:06] LABS: Calcium TNR mg/dL (8.4-10.2)
[2018-05-26 04:18] LABS: BUN/Creatinine Ratio TNR; Blood Urea Nitrogen TNR mg/dL (9-20)
[2018-05-26 04:19] LABS: Hemolysis Index TNR
[2018-05-26 05:11] LABS: Blood Urea Nitrogen 66 mg/dL (9-20); Calcium 6.9 mg/dL (8.4-10.2); Hemolysis Index 25
[2018-05-26] MEDS: APRESOLINE PO SCH ×2 (05:41→23:23)
[2018-05-26] MEDS: CATAPRES PO SCH (05:41)
[2018-05-26] MEDS: ZOSYN/NS 4.5GM/100ML 4.5 GM/100 ML VIAL IV SCH (05:57)
[2018-05-26] MEDS ORDERED: D50W (25GM) Vial IV STA (08:23)
--- NOTE | 2018-05-26 08:24 | Progress Note ---
Assessment and Plan Assessment and plan: The patient is a 52 YO AAM with medical history significant for Uncontrolled HTN who came to the ER for evaluation of bilateral leg swelling, SOB and no urine output. He had abdominal pain, bilateral leg swelling, stopped making urine. Currently the patient has had a weight loss of over 50 pounds in the last 3 months. He was not taking any meds on a regular basis and has not seen a physician except ER visit last year. He underwent a biopsy with placement of bilateral nephrostomy tubes. 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 /SBO - noted on CT abdoemn today - keep NPO, GS consult - NG suction /Pelvic mass Large pelvic mass between bladder and rectum with large lyph nodes, malignant. Consulted Urology to evaluate, s/p cystoscopy with prostate biopsy Differentiated carcinoma with squamous differentiation on pathology but unsure of exact primary /Acute kidney injury due to pelvic mass New diagnosis, No history of renal disease Nephrology following. Ultrasound Kidneys showed bilat hydronephrosis CT Abd shows Pelvic mass with multiple large lymph nodes Had bilateral nephrostomy tubes placed 05/14/[address] Freeman. Today Cr worse after contrast for CT Angio yesterday. Cr 4.3 today /Acute DVT right femoral vein. Discussed with Dr. Freeman. No anticoagulation for now because of bilateral nephrostomy tubes. Reassed with repeat venous doppler and showed no DVT propagation Pt could likely be started on anticoagulation after 14days if no concerns of active bleeding at that time. /Hypertensive urgency, cont Clonidine, Metoprolol, Norvasc and Hydralazine. Acute respiratory failure. Now on BIPAP evaluated by Pulm yesterday Sinus tachycardia with HR 160s cardiology consulted. Was OK to use contrast for CT Angio as per Nepr CT Angio chest negative for Pulm embolism /Hyperkalemia,was resolved , but present today. Give calcoum iv, Insulin Discussed with Nephrology /Hypernatremia, /Metabolic acidosis due to MARYLOU, resolved with iv fluid /ACUTE BLOOD LOSS ANEMIA Monitor. /Fever, Obtained blood cultures Possible sepsis has fever, tachycardia, leukocytosis re-order blood cultures, UA, Urine Culture On Antibiotics /Moderate to severe protein calorie malnutrition -dietitian consulted -startd on TPN Full code status Discussed with Dr. Valentin. He states patient not accepted at [place]. I discussed with Dr. Keita, surgeon. he recommends colonoscopy by GI then, he, Dr. Keita will do diverting colostomy. I then discussed with Dr. Cunningham and he states will do flex sigmoidoscopy. I later discussed this with patient and sister at bedside, in presence of Nurse , Kita and Air Defence Officer on 05/24/18 Flexible sigmoidoscopy done yesterday 05/25 History Interval history: Patient developed worse tachycardia yesterday, shortness of breath, trasferred to ICU. [facility] - Physical exam Narrative exam: GEN:Not in acute distress, lying in bed, very ill looking HEENT: Normocephalic, atraumatic, Neck: supple, No JVD Lungs: Clear to auscultaion bilaterally, no crackles Heart:S1 and S2 reg, no murmurs, rubs or gallop Abd:soft, mild tender, mild distended, Normal bowel sounds, bilat nephrostomy tubes Ext: No edema, clubbing or cyanosis Neuro: Awake, alert, oriented X 3, Moves all extremities - Constitutional Vitals: Temp Pulse Resp BP Pulse Ox 98.9 F 134 H 56 H 118/70 97 05/26/18 03:59 05/26/18 07:54 05/26/18 07:54 05/26/18 07:54 05/26/18 07:54 General appearance: Present: mild distress, cachectic, other (SOB) Results - Labs CBC & Chem 7: 05/26/18 02:24 05/26/18 11:01 Labs: Laboratory Last Values WBC 18.7 K/mm3 (4.5-11.0) H 05/26/18 02:24 RBC 3.98 M/mm3 (3.65-5.03) 05/26/18 02:24 Hgb 11.6 gm/dl (11.8-15.2) L 05/26/18 02:24 Hct 35.8 % (35.5-45.6) 05/26/18 02:24 MCV 90 fl (84-94) 05/26/18 02:24 MCH 29 pg (28-32) 05/26/18 02:24 MCHC 32 % (32-34) 05/26/18 02:24 RDW 14.9 % (13.2-15.2) 05/26/18 02:24 Plt Count 424 K/mm3 (140-440) 05/26/18 02:24 Lymph % (Auto) 10.1 % (13.4-35.0) L 05/19/18 05:33 [place] % (Auto) 4.6 % (0.0-7.3) 05/19/18 05:33 Eos % (Auto) 0.0 % (0.0-4.3) 05/19/18 05:33 Baso % (Auto) 0.1 % (0.0-1.8) 05/19/18 05:33 Lymph # 1.1 K/mm3 (1.2-5.4) L 05/19/18 05:33 [place] # 0.5 K/mm3 (0.0-0.8) 05/19/18 05:33 Eos # 0.0 K/mm3 (0.0-0.4) 05/19/18 05:33 Baso # 0.0 K/mm3 (0.0-0.1) 05/19/18 05:33 Add Manual Diff Complete 05/22/18 06:49 Total Counted 100 05/22/18 06:49 Seg Neutrophils % Branch Office Administrator 05/22/18 06:49 Seg Neuts % (Manual) 85.0 % (40.0-70.0) H 05/22/18 06:49 Band Neutrophils % 10.0 % 05/22/18 06:49 Lymphocytes % (Manual) 4.0 % (13.4-35.0) L 05/22/18 06:49 Reactive Lymphs % (Man) 0 % 05/22/18 06:49 Monocytes % (Manual) 1.0 % (0.0-7.3) 05/22/18 06:49 Eosinophils % (Manual) 0 % (0.0-4.3) 05/22/18 06:49 Basophils % (Manual) 0 % (0.0-1.8) 05/22/18 06:49 Metamyelocytes % 0 % 05/22/18 06:49 Myelocytes % 0 % 05/22/18 06:49 Promyelocytes % 0 % 05/22/18 06:49 Blast Cells % 0 % 05/22/18 06:49 Nucleated RBC % Not Reportable 05/22/18 06:49 Seg Neutrophils # 9.0 K/mm3 (1.8-7.7) H 05/19/18 05:33 Seg Neutrophils # Man 17.0 K/mm3 (1.8-7.7) H 05/22/18 06:49 Band Neutrophils # 2.0 K/mm3 05/22/18 06:49 Lymphocytes # (Manual) 0.8 K/mm3 (1.2-5.4) L 05/22/18 06:49 Abs React Lymphs (Man) 0.0 K/mm3 05/22/18 06:49 Monocytes # (Manual) 0.2 K/mm3 (0.0-0.8) 05/22/18 06:49 Eosinophils # (Manual) 0.0 K/mm3 (0.0-0.4) 05/22/18 06:49 Basophils # (Manual) 0.0 K/mm3 (0.0-0.1) 05/22/18 06:49 Metamyelocytes # 0.0 K/mm3 05/22/18 06:49 Myelocytes # 0.0 K/mm3 05/22/18 06:49 Promyelocytes # 0.0 K/mm3 05/22/18 06:49 Blast Cells # 0.0 K/mm3 05/22/18 06:49 WBC Morphology Not Reportable 05/22/18 06:49 Hypersegmented Neuts Not Reportable 05/22/18 06:49 Hyposegmented Neuts Not Reportable 05/22/18 06:49 Hypogranular Neuts Not Reportable 05/22/18 06:49 Smudge Cells Not Reportable 05/22/18 06:49 Toxic Granulation Not Reportable 05/22/18 06:49 Toxic Vacuolation Not Reportable 05/22/18 06:49 Dohle Bodies Not Reportable 05/22/18 06:49 Pelger-Huet Anomaly Not Reportable 05/22/18 06:49 Mahesh Rods Not Reportable 05/22/18 06:49 Platelet Estimate Consistent w auto 05/22/18 06:49 Clumped Platelets Not Reportable 05/22/18 06:49 Plt Clumps, EDTA Not Reportable 05/22/18 06:49 Large Platelets Not Reportable 05/22/18 06:49 Giant Platelets Not Reportable 05/22/18 06:49 Platelet Satelliting Not Reportable 05/22/18 06:49 Plt Morphology Comment Not Reportable 05/22/18 06:49 RBC Morphology Not Reportable 05/22/18 06:49 Dimorphic RBCs Not Reportable 05/22/18 06:49 Polychromasia Not Reportable 05/22/18 06:49 Hypochromasia 1+ 05/22/18 06:49 Poikilocytosis Not Reportable 05/22/18 06:49 Anisocytosis Not Reportable 05/22/18 06:49 Microcytosis Not Reportable 05/22/18 06:49 Macrocytosis Not Reportable 05/22/18 06:49 Spherocytes Not Reportable 05/22/18 06:49 Pappenheimer Bodies Not Reportable 05/22/18 06:49 Sickle Cells Not Reportable 05/22/18 06:49 Target Cells Not Reportable 05/22/18 06:49 Tear Drop Cells Not Reportable 05/22/18 06:49 Ovalocytes Not Reportable 05/22/18 06:49 Helmet Cells Not Reportable 05/22/18 06:49 [place] Bodies Not Reportable 05/22/18 06:49 [place] Rings Not Reportable 05/22/18 06:49 [place] Cells Not Reportable 05/22/18 06:49 Bite Cells Not Reportable 05/22/18 06:49 Crenated Cell Not Reportable 05/22/18 06:49 Elliptocytes Not Reportable 05/22/18 06:49 Acanthocytes (Spur) Not Reportable 05/22/18 06:49 Rouleaux Not Reportable 05/22/18 06:49 Hemoglobin C Crystals Not Reportable 05/22/18 06:49 Schistocytes Not Reportable 05/22/18 06:49 Malaria parasites Not Reportable 05/22/18 06:49 Mk Bodies Not Reportable 05/22/18 06:49 Hem Pathologist Commnt No 05/22/18 06:49 PT 18.3 Sec. (12.2-14.9) H 05/23/18 09:03 INR 1.43 (0.87-1.13) H 05/23/18 09:03 APTT 40.0 Sec. (24.2-36.6) H 05/23/18 09:03 POC ABG pH 7.449 (7.35-7.45) 05/26/18 06:02 POC ABG pCO2 28.8 (35-45) L 05/26/18 06:02 POC ABG pO2 82 (80-105) 05/26/18 06:02 POC ABG HCO3 20.0 05/26/18 06:02 POC ABG Total CO2 21 05/26/18 06:02 POC ABG O2 Sat 97 05/26/18 06:02 POC ABG Base Excess -4 05/26/18 06:02 FiO2 45 % 05/26/18 06:02 Sodium 150 mmol/L (137-145) H 05/26/18 04:20 Potassium 5.7 mmol/L (3.6-5.0) H D 05/26/18 04:20 Chloride 110.0 mmol/L (98-107) H 05/26/18 04:20 Carbon Dioxide 19 mmol/L (22-30) L 05/26/18 04:20 Anion Gap 27 mmol/L 05/26/18 04:20 BUN 66 mg/dL (9-20) H 05/26/18 04:20 Creatinine 3.7 mg/dL (0.8-1.5) H D 05/26/18 04:20 Estimated GFR 21 ml/min 05/26/18 04:20 BUN/Creatinine Ratio 18 % 05/26/18 04:20 Glucose 166 mg/dL (75-100) H 05/26/18 04:20 POC Glucose 187 (70-105) H 05/26/18 05:39 Hemoglobin A1c 5.7 % (4-6) 05/14/18 05:05 Lactic Acid 5.10 mmol/L (0.7-2.0) H* 05/26/18 04:20 Calcium 6.9 mg/dL (8.4-10.2) L D 05/26/18 04:20 Phosphorus 6.70 mg/dL (2.5-4.5) H D 05/26/18 04:20 Magnesium 2.20 mg/dL (1.7-2.3) 05/26/18 04:20 Iron 24 ug/dL (49-181) L 05/16/18 07:02 TIBC 160 mcg/dL (250-450) L 05/16/18 07:02 Ferritin 325.8 ng/mL (13.0-400.0) 05/16/18 07:02 Total Bilirubin < 0.20 mg/dL (0.1-1.2) 05/13/18 04:27 AST 15 units/L (5-40) 05/13/18 04:27 ALT 10 units/L (7-56) 05/13/18 04:27 Alkaline Phosphatase 80 units/L (35-129) 05/13/18 04:27 Total Creatine Kinase 156 units/L (55-170) 05/25/18 22:46 CK-MB (CK-2) 2.3 ng/mL (0.0-4.0) 05/25/18 22:46 CK-MB (CK-2) Rel Index 1.4 (0-4) 05/25/18 22:46 C-Reactive Protein 34.50 mg/dL (0.00-1.30) H 05/25/18 19:50 Total Protein 8.1 g/dL (6.3-8.2) 05/13/18 04:27 Albumin 2.8 g/dL (3.9-5) L 05/13/18 04:27 Albumin/Globulin Ratio 0.5 % 05/13/18 04:27 Prostate Specific Ag 0.96 ng/mL (0.00-4.00) 05/14/18 13:29 Vitamin B12 359.2 pg/mL (211-911) 05/16/18 07:02 Folate 5.39 ng/mL (7.3-26.0) L 05/16/18 07:02 TSH 3.180 mlU/mL (0.270-4.200) 05/14/18 05:05 PTH Intact 65.37 pg/mL (15-65) H 05/14/18 05:05 Urine Color [place] (Yellow) 05/21/18 15:30 Urine Turbidity Cloudy (Clear) 05/21/18 15:30 Urine pH 5.0 (5.0-7.0) 05/21/18 15:30 Ur Specific [place] 1.019 (1.003-1.030) 05/21/18 15:30 Urine Protein >500 mg/dL (Negative) 05/21/18 15:30 Urine Glucose (UA) Neg mg/dL (Negative) 05/21/18 15:30 Urine Ketones Neg mg/dL (Negative) 05/21/18 15:30 Urine Blood Mod (Negative) 05/21/18 15:30 Urine Nitrite Neg (Negative) 05/21/18 15:30 Urine Bilirubin Neg (Negative) 05/21/18 15:30 Urine Urobilinogen 4.0 mg/dL (<2.0) 05/21/18 15:30 Ur Leukocyte Esterase Tr (Negative) 05/21/18 15:30 Urine WBC (Auto) 28.0 /HPF (0.0-6.0) H 05/21/18 15:30 Urine RBC (Auto) 33.0 /HPF (0.0-6.0) 05/21/18 15:30 U Epithel Cells (Auto) 2.0 /HPF (0-13.0) 05/21/18 15:30 Urine Bacteria (Auto) 1+ /HPF (Negative) 05/21/18 15:30 Urine WBC Clumps Few /HPF 05/13/18 19:39 Urine Mucus 1+ /HPF 05/21/18 15:30 Urine Yeast (Budding) 2+ /HPF 05/21/18 15:30 Urine Creatinine 66.0 mg/dL (0.1-20.0) H 05/13/18 19:39 Urine Sodium 60 mmol/L 05/13/18 19:39 Urine Potassium 8.69 mmol/L 05/13/18 19:39 Urine Chloride 27.8 mmolL (110-250) L 05/13/18 19:39 Urine Total Protein 24 mg/dL (5-11.8) H 05/13/18 19:39 Vancomycin Trough 25.1 ug/mL (5.0-20.0) H 05/25/18 22:46 Urine Opiates Screen Presumptive negative 05/13/18 19:39 Urine Methadone Screen Presumptive negative 05/13/18 19:39 Ur Barbiturates Screen Presumptive negative 05/13/18 19:39 Ur Phencyclidine Scrn Presumptive negative 05/13/18 19:39 Ur Amphetamines Screen Presumptive negative 05/13/18 19:39 U Benzodiazepines Scrn Presumptive negative 05/13/18 19:39 Urine Cocaine Screen Presumptive negative 05/13/18 19:39 U Marijuana (THC) Screen Presumptive negative 05/13/18 19:39 Drugs of Abuse Note Disclamer 05/13/18 19:39 ZEUS Screen Negative (Negative) 05/14/18 05:05 Proteinase 3 (PR3) Ab <1.0 AI (<1.0) 05/14/18 05:05 Myeloperoxidase Ab <1.0 AI (<1.0) 05/14/18 05:05 Complement C3 147 mg/dL (82-185) 05/14/18 05:05 Complement C4 45 mg/dL (15-53) 05/14/18 05:05 Blood Type O POSITIVE 05/22/18 11:23 Antibody Screen Negative 05/22/18 11:23 Crossmatch See Detail 05/22/18 11:23
--- NOTE | 2018-05-26 08:34 | Progress Note ---
Assessment and Plan 1. Acute kidney injury: Recurrent Acute kidney injury. Initial MARYLOU in the setting of bilateral hydronephrosis secondary to pelvic mass , now s/p bilateral nephrostomy. Creatinine level is upto 3.7 today. Continue IV fluids. Monitor. Renal prognosis is guarded. 2. Electrolytes: Hypernatremia, Hypotonic IV fluids. Hyperkalemia, Insulin-Dextrose. Stop TPN due to potassium content. Monitor. 3. Bowel obstruction: Followed by Gen. Surgery. 4. Bilateral hydronephrosis: S/p bilateral nephrostomy. S/p Cysto and drainage of abscess. 5. 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 6. HTN: Monitor. 7. Anemia: Iron and Folate supplement. D/w his sister and answered all questions. Subjective Date of service: 05/26/18 Principal diagnosis: squamous cell ca - prostate bx - prelim report Interval history: Patient was seen and examined at the bedside. Patient was transferred to ICU with respiratory distress and tachycardia. Objective - Vital Signs Vital signs: Vital Signs - 12hr 05/25/18 05/25/18 05/25/18 20:45 21:00 21:15 Temperature 98.6 F Pulse Rate 149 H 151 H 155 H Pulse Rate [ From Monitor] Respiratory 64 H 67 H 63 H Rate Blood Pressure 67/45 74/51 94/28 O2 Sat by Pulse 92 94 99 Oximetry 05/25/18 05/25/18 05/25/18 21:30 21:31 21:35 Temperature Pulse Rate 147 H 150 H Pulse Rate [ From Monitor] Respiratory 62 H 61 H Rate Blood Pressure 75/48 75/48 O2 Sat by Pulse 100 100 100 Oximetry 05/25/18 05/25/18 05/25/18 21:45 22:00 22:09 Temperature Pulse Rate 151 H 147 H Pulse Rate [ 160 H From Monitor] Respiratory 67 H 61 H Rate Blood Pressure 74/51 73/51 73/51 O2 Sat by Pulse 100 96 Oximetry 05/25/18 05/25/18 05/25/18 22:15 22:16 22:30 Temperature 101.1 F H Pulse Rate 152 H 149 H Pulse Rate [ From Monitor] Respiratory 60 H 61 H Rate Blood Pressure 77/50 77/59 O2 Sat by Pulse 98 100 Oximetry 05/25/18 05/25/18 05/25/18 22:45 23:00 23:15 Temperature Pulse Rate 144 H 145 H 143 H Pulse Rate [ From Monitor] Respiratory 62 H 56 H 58 H Rate Blood Pressure 81/60 81/60 90/60 O2 Sat by Pulse 100 Oximetry 05/25/18 05/25/18 05/25/18 23:17 23:30 23:35 Temperature Pulse Rate 144 H 142 H 145 H Pulse Rate [ From Monitor] Respiratory 57 H 60 H 60 H Rate Blood Pressure 90/60 98/64 98/64 O2 Sat by Pulse 98 98 97 Oximetry 05/25/18 05/25/18 05/26/18 23:45 23:53 00:00 Temperature Pulse Rate 142 H 145 H 140 H Pulse Rate [ From Monitor] Respiratory 59 H 59 H Rate Blood Pressure 95/61 92/60 O2 Sat by Pulse 98 94 Oximetry 05/26/18 05/26/18 05/26/18 00:15 00:30 00:48 Temperature Pulse Rate 139 H 137 H 139 H Pulse Rate [ From Monitor] Respiratory 60 H 63 H Rate Blood Pressure 89/59 95/61 O2 Sat by Pulse 94 96 96 Oximetry 05/26/18 05/26/18 05/26/18 01:00 01:15 01:30 Temperature Pulse Rate 135 H 136 H 136 H Pulse Rate [ From Monitor] Respiratory 49 H 45 H 54 H Rate Blood Pressure 95/65 96/59 94/67 O2 Sat by Pulse 95 94 96 Oximetry 05/26/18 05/26/18 05/26/18 01:36 01:45 02:00 Temperature Pulse Rate 138 H 135 H 137 H Pulse Rate [ From Monitor] Respiratory 43 H 54 H 55 H Rate Blood Pressure 97/62 94/65 98/65 O2 Sat by Pulse 100 94 93 Oximetry 05/26/18 05/26/18 05/26/18 02:15 02:30 02:45 Temperature Pulse Rate 135 H 135 H 137 H Pulse Rate [ From Monitor] Respiratory 55 H 57 H 57 H Rate Blood Pressure 92/64 86/65 97/67 O2 Sat by Pulse 96 93 97 Oximetry 05/26/18 05/26/18 05/26/18 03:00 03:15 03:30 Temperature Pulse Rate 136 H 138 H 138 H Pulse Rate [ From Monitor] Respiratory 53 H 54 H 56 H Rate Blood Pressure 105/66 109/67 96/66 O2 Sat by Pulse 93 98 99 Oximetry 05/26/18 05/26/18 05/26/18 03:45 03:59 04:00 Temperature 98.9 F Pulse Rate 137 H 138 H Pulse Rate [ From Monitor] Respiratory 58 H 54 H Rate Blood Pressure 103/69 98/70 O2 Sat by Pulse 100 94 Oximetry 05/26/18 05/26/18 05/26/18 04:15 04:30 04:45 Temperature Pulse Rate 134 H 138 H 136 H Pulse Rate [ From Monitor] Respiratory 51 H 54 H 56 H Rate Blood Pressure 96/72 106/76 106/76 O2 Sat by Pulse 93 94 95 Oximetry 05/26/18 05/26/18 05/26/18 05:00 05:15 05:30 Temperature Pulse Rate 136 H 137 H 138 H Pulse Rate [ From Monitor] Respiratory 56 H 60 H 59 H Rate Blood Pressure 106/76 112/76 O2 Sat by Pulse 94 93 Oximetry 05/26/18 05/26/18 05/26/18 05:45 06:00 06:15 Temperature Pulse Rate 137 H 138 H 134 H Pulse Rate [ From Monitor] Respiratory 54 H 55 H 56 H Rate Blood Pressure 114/77 106/72 108/74 O2 Sat by Pulse 94 94 96 Oximetry 05/26/18 05/26/18 05/26/18 06:30 06:45 07:00 Temperature Pulse Rate 132 H 132 H 133 H Pulse Rate [ From Monitor] Respiratory 54 H 56 H 55 H Rate Blood Pressure 117/73 112/77 112/76 O2 Sat by Pulse 95 94 94 Oximetry 05/26/18 05/26/18 05/26/18 07:15 07:30 07:45 Temperature Pulse Rate 133 H 134 H 135 H Pulse Rate [ From Monitor] Respiratory 52 H 57 H 56 H Rate Blood Pressure 112/76 116/74 118/70 O2 Sat by Pulse 96 94 95 Oximetry 05/26/18 05/26/18 05/26/18 07:52 07:54 08:00 Temperature 99.8 F H Pulse Rate 134 H Pulse Rate [ From Monitor] Respiratory 56 H Rate Blood Pressure 118/70 O2 Sat by Pulse 96 97 Oximetry - General Appearance General appearance: well-developed, appears stated age, other (on BIPAP, NG tube noted) EENT: ATNC, PERRL, mucous membranes dry, hearing intact, vision intact Neck: supple Respiratory: Present: Clear to Ascultation Cardiology: tachycardia, S1S2, no murmurs Gastrointestinal: normoactive bowel sounds, no tenderness, distended, other ( bilateral nephrostomy tubes noted) Integumentary: no rash, warm and dry Neurologic: no focal deficit, no asterixis Musculoskeletal: other (no edema) - Lab 05/26/18 02:24 05/26/18 04:20 Most recent lab results Calcium 6.9 mg/dL (8.4-10.2) L D 05/26/18 04:20 Phosphorus 6.70 mg/dL (2.5-4.5) H D 05/26/18 04:20 Magnesium 2.20 mg/dL (1.7-2.3) 05/26/18 04:20 Urine Creatinine 66.0 mg/dL (0.1-20.0) H 05/13/18 19:39 Urine Sodium 60 mmol/L 05/13/18 19:39 Urine Total Protein 24 mg/dL (5-11.8) H 05/13/18 19:39
[2018-05-26] MEDS ORDERED: CALCIUM GLUCONATE 1,000 MG in NACL 0.9% 100 ML IV ONE (09:00)
[2018-05-26] MEDS ORDERED: HumuLIN R IV ONE ×2 (09:00→16:00)
[2018-05-26 09:34] LABS: BUN/Creatinine Ratio 66
--- NOTE | 2018-05-26 09:48 | Progress Note ---
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 Hypertensive urgency, Sinus tachycardia with HR 160s CTA negative for PE Hyperkalemia Hypernatrmia Metabolic acidosis Acute blood loss anemia Moderate to severe protein calorie malnutrition -For OR today, discussed extensively with the patient and the hospitalist service that he probably will need t remain on mechanical ventilatory support post surgery. His minute ventilation is too high right now. The Ve is trying to compensate for the metabolic acidosis - continue supplemental oxygen to keep sats > 90% - continue NIPPV - continue bronchodilators with pulmonary hygiene per RT - may need HD/UF for toxin and volume clearance, defer Nephrology - continue anti-infective's per ID recs - continue TPN for now - Malignancy per heme-oncologist - continue mobility protocol for pressure ulcer prophylaxis - s/p bilateral nephrostomy tubes placed 05/14/[address] Freeman. - hold VTE anticoagulation, patient is scheduled for OR today (CTA negative for P.E.) - continue other care per attending / other consultants The high probability of a clinically significant, sudden or life threatening deterioration of the [respiratory,cardiac, urologic and renal] system(s) required my full and direct attention, intervention and personal management. The aggregate critical care time was [38] minutes without overlap. Time includes spent on; [x] Data Review and interpretation [x] Patient assessment and monitoring of vital signs [x] Documentation [x] Medication orders and management Full code status Subjective Date of service: 05/26/18 Principal diagnosis: squamous cell ca - prostate bx - prelim report Interval history: Patient is seen today for: Acute Hypoxemic Resp Failure; Sepsis Syndrome; Acute VTE; Prostate Cancer Scheduled for OR patient , s/p bilateral nephrostomy tubes Seen and examined at bedside; 24hour events reviewed; nursing and respiratory care staff consulted; no adverse overnight events reported to me; in moderate respiratory distress, on NIPPV Objective - Exam Narrative Exam: General appearance: Alert in NAD, conversant, on BIPAP, moderate respiratory distress Eyes: anicteric sclerae, moist conjunctivae; no lid-lag; PERRLA HENT: Atraumatic; oropharynx +NGT. Normal external ears. +temporal wasting Neck: Trachea midline; supple, no thyromegaly or lymphadenopathy Lungs: amy rhonchi CV: RRR, no murmurs Abdomen: Soft, +diverting colostomy +multiple drains and amy PC nephros Extremities: No peripheral edema or extremity lymphadenopathy Skin: Normal temperature, turgor and texture; no rash, ulcers or subcutaneous nodules Psych: normal affect, anxious Neuro: Non focal, awake, alert, oriented x3 Vital Signs - 12hr 05/25/18 05/25/18 05/25/18 22:00 22:09 22:15 Temperature Pulse Rate 147 H 152 H Pulse Rate [ 160 H From Monitor] Respiratory 61 H 60 H Rate Blood Pressure 73/51 73/51 77/50 O2 Sat by Pulse 96 98 Oximetry 05/25/18 05/25/18 05/25/18 22:16 22:30 22:45 Temperature 101.1 F H Pulse Rate 149 H 144 H Pulse Rate [ From Monitor] Respiratory 61 H 62 H Rate Blood Pressure 77/59 81/60 O2 Sat by Pulse 100 Oximetry 05/25/18 05/25/18 05/25/18 23:00 23:15 23:17 Temperature Pulse Rate 145 H 143 H 144 H Pulse Rate [ From Monitor] Respiratory 56 H 58 H 57 H Rate Blood Pressure 81/60 90/60 90/60 O2 Sat by Pulse 100 98 Oximetry 05/25/18 05/25/18 05/25/18 23:30 23:35 23:45 Temperature Pulse Rate 142 H 145 H 142 H Pulse Rate [ From Monitor] Respiratory 60 H 60 H 59 H Rate Blood Pressure 98/64 98/64 95/61 O2 Sat by Pulse 98 97 98 Oximetry 05/25/18 05/26/18 05/26/18 23:53 00:00 00:15 Temperature Pulse Rate 145 H 140 H 139 H Pulse Rate [ From Monitor] Respiratory 59 H 60 H Rate Blood Pressure 92/60 89/59 O2 Sat by Pulse 94 94 Oximetry 05/26/18 05/26/18 05/26/18 00:30 00:48 01:00 Temperature Pulse Rate 137 H 139 H 135 H Pulse Rate [ From Monitor] Respiratory 63 H 49 H Rate Blood Pressure 95/61 95/65 O2 Sat by Pulse 96 96 95 Oximetry 05/26/18 05/26/18 05/26/18 01:15 01:30 01:36 Temperature Pulse Rate 136 H 136 H 138 H Pulse Rate [ From Monitor] Respiratory 45 H 54 H 43 H Rate Blood Pressure 96/59 94/67 97/62 O2 Sat by Pulse 94 96 100 Oximetry 05/26/18 05/26/18 05/26/18 01:45 02:00 02:15 Temperature Pulse Rate 135 H 137 H 135 H Pulse Rate [ From Monitor] Respiratory 54 H 55 H 55 H Rate Blood Pressure 94/65 98/65 92/64 O2 Sat by Pulse 94 93 96 Oximetry 05/26/18 05/26/18 05/26/18 02:30 02:45 03:00 Temperature Pulse Rate 135 H 137 H 136 H Pulse Rate [ From Monitor] Respiratory 57 H 57 H 53 H Rate Blood Pressure 86/65 97/67 105/66 O2 Sat by Pulse 93 97 93 Oximetry 05/26/18 05/26/18 05/26/18 03:15 03:30 03:45 Temperature Pulse Rate 138 H 138 H 137 H Pulse Rate [ From Monitor] Respiratory 54 H 56 H 58 H Rate Blood Pressure 109/67 96/66 103/69 O2 Sat by Pulse 98 99 100 Oximetry 05/26/18 05/26/18 05/26/18 03:59 04:00 04:15 Temperature 98.9 F Pulse Rate 138 H 134 H Pulse Rate [ From Monitor] Respiratory 54 H 51 H Rate Blood Pressure 98/70 96/72 O2 Sat by Pulse 94 93 Oximetry 05/26/18 05/26/18 05/26/18 04:30 04:45 05:00 Temperature Pulse Rate 138 H 136 H 136 H Pulse Rate [ From Monitor] Respiratory 54 H 56 H 56 H Rate Blood Pressure 106/76 106/76 O2 Sat by Pulse 94 95 Oximetry 05/26/18 05/26/18 05/26/18 05:15 05:30 05:45 Temperature Pulse Rate 137 H 138 H 137 H Pulse Rate [ From Monitor] Respiratory 60 H 59 H 54 H Rate Blood Pressure 106/76 112/76 114/77 O2 Sat by Pulse 94 93 94 Oximetry 05/26/18 05/26/18 05/26/18 06:00 06:15 06:30 Temperature Pulse Rate 138 H 134 H 132 H Pulse Rate [ From Monitor] Respiratory 55 H 56 H 54 H Rate Blood Pressure 106/72 108/74 117/73 O2 Sat by Pulse 94 96 95 Oximetry 05/26/18 05/26/18 05/26/18 06:45 07:00 07:15 Temperature Pulse Rate 132 H 133 H 133 H Pulse Rate [ From Monitor] Respiratory 56 H 55 H 52 H Rate Blood Pressure 112/77 112/76 112/76 O2 Sat by Pulse 94 94 96 Oximetry 05/26/18 05/26/18 05/26/18 07:30 07:45 07:52 Temperature Pulse Rate 134 H 135 H Pulse Rate [ From Monitor] Respiratory 57 H 56 H Rate Blood Pressure 116/74 118/70 O2 Sat by Pulse 94 95 96 Oximetry 05/26/18 05/26/18 07:54 08:00 Temperature 99.8 F H Pulse Rate 134 H Pulse Rate [ From Monitor] Respiratory 56 H Rate Blood Pressure 118/70 O2 Sat by Pulse 97 Oximetry CBC and BMP: 05/31/18 04:50 05/31/18 04:50 ABG, PT/INR, D-dimer: ABG POC ABG pH 7.449 (7.35-7.45) 05/26/18 06:02 POC ABG pCO2 28.8 (35-45) L 05/26/18 06:02 POC ABG pO2 82 (80-105) 05/26/18 06:02 POC ABG HCO3 20.0 05/26/18 06:02 POC ABG Total CO2 21 05/26/18 06:02 POC ABG O2 Sat 97 05/26/18 06:02 PT/INR, D-dimer PT 18.3 Sec. (12.2-14.9) H 05/23/18 09:03 INR 1.43 (0.87-1.13) H 05/23/18 09:03 Abnormal lab findings: Abnormal Labs 05/13/18 05/13/18 05/13/18 04:27 04:27 19:39 WBC RBC 3.13 L Hgb 9.4 L Hct 26.8 L MCHC 35 H Lymph % (Auto) [place] % (Auto) 9.6 H Lymph # [place] # Seg Neutrophils % Seg Neuts % (Manual) Lymphocytes % (Manual) Seg Neutrophils # Seg Neutrophils # Man Lymphocytes # (Manual) PT INR APTT POC ABG pH POC ABG pCO2 POC ABG pO2 Sodium 132 L Potassium 5.5 H Chloride 94.1 L Carbon Dioxide 19 L BUN 72 H Creatinine 14.4 H Glucose POC Glucose Lactic Acid Calcium Phosphorus Magnesium Iron TIBC Total Creatine Kinase C-Reactive Protein Albumin 2.8 L Folate PTH Intact Urine WBC (Auto) Urine Creatinine 66.0 H Urine Chloride 27.8 L Urine Total Protein 24 H Vancomycin Trough Crossmatch 05/13/18 05/14/18 05/14/18 20:00 05:05 05:05 WBC RBC Hgb Hct MCHC Lymph % (Auto) [place] % (Auto) Lymph # [place] # Seg Neutrophils % Seg Neuts % (Manual) Lymphocytes % (Manual) Seg Neutrophils # Seg Neutrophils # Man Lymphocytes # (Manual) PT INR APTT POC ABG pH POC ABG pCO2 POC ABG pO2 Sodium 132 L 131 L Potassium 5.2 H 5.8 H Chloride 93.0 L 95.6 L Carbon Dioxide 19 L 20 L BUN 74 H 81 H Creatinine 15.0 H 16.6 H Glucose 134 H 127 H POC Glucose Lactic Acid Calcium 8.2 L 7.9 L Phosphorus 6.30 H Magnesium Iron TIBC Total Creatine Kinase 236 H C-Reactive Protein Albumin Folate PTH Intact 65.37 H Urine WBC (Auto) Urine Creatinine Urine Chloride Urine Total Protein Vancomycin Trough Crossmatch 05/14/18 05/14/18 05/14/18 09:28 10:56 13:29 WBC RBC Hgb Hct MCHC Lymph % (Auto) [place] % (Auto) Lymph # [place] # Seg Neutrophils % Seg Neuts % (Manual) Lymphocytes % (Manual) Seg Neutrophils # Seg Neutrophils # Man Lymphocytes # (Manual) PT INR APTT 38.2 H POC ABG pH POC ABG pCO2 POC ABG pO2 Sodium Potassium Chloride Carbon Dioxide BUN Creatinine Glucose POC Glucose 127 H 126 H Lactic Acid Calcium Phosphorus Magnesium Iron TIBC Total Creatine Kinase C-Reactive Protein Albumin Folate PTH Intact Urine WBC (Auto) Urine Creatinine Urine Chloride Urine Total Protein Vancomycin Trough Crossmatch 05/15/18 05/15/18 05/16/18 08:06 08:06 07:02 WBC RBC 2.84 L 2.74 L Hgb 8.5 L 8.5 L Hct 24.2 L 23.5 L MCHC 35 H 36 H Lymph % (Auto) [place] % (Auto) 10.4 H 11.0 H Lymph # 1.1 L [place] # 0.9 H Seg Neutrophils % 72.6 H Seg Neuts % (Manual) Lymphocytes % (Manual) Seg Neutrophils # Seg Neutrophils # Man Lymphocytes # (Manual) PT INR APTT POC ABG pH POC ABG pCO2 POC ABG pO2 Sodium Potassium Chloride Carbon Dioxide 19 L BUN 66 H Creatinine 12.0 H Glucose 115 H POC Glucose Lactic Acid Calcium 8.1 L Phosphorus Magnesium Iron TIBC Total Creatine Kinase C-Reactive Protein Albumin Folate PTH Intact Urine WBC (Auto) Urine Creatinine Urine Chloride Urine Total Protein Vancomycin Trough Crossmatch 05/16/18 05/16/18 05/17/18 07:02 07:02 05:08 WBC RBC 2.78 L Hgb 8.2 L Hct 23.9 L MCHC Lymph % (Auto) [place] % (Auto) 13.9 H Lymph # [place] # 0.9 H Seg Neutrophils % Seg Neuts % (Manual) Lymphocytes % (Manual) Seg Neutrophils # Seg Neutrophils # Man Lymphocytes # (Manual) PT INR APTT POC ABG pH POC ABG pCO2 POC ABG pO2 Sodium Potassium Chloride Carbon Dioxide BUN 28 H Creatinine 2.4 H D Glucose POC Glucose Lactic Acid Calcium 8.3 L Phosphorus Magnesium 1.50 L Iron 24 L TIBC 160 L Total Creatine Kinase C-Reactive Protein Albumin Folate 5.39 L PTH Intact Urine WBC (Auto) Urine Creatinine Urine Chloride Urine Total Protein Vancomycin Trough Crossmatch 05/17/18 05/18/18 05/18/18 05:08 05:57 05:57 WBC RBC 2.79 L Hgb 8.3 L Hct 24.0 L MCHC 35 H Lymph % (Auto) [place] % (Auto) 11.8 H Lymph # [place] # 0.9 H Seg Neutrophils % Seg Neuts % (Manual) Lymphocytes % (Manual) Seg Neutrophils # Seg Neutrophils # Man Lymphocytes # (Manual) PT INR APTT POC ABG pH POC ABG pCO2 POC ABG pO2 Sodium Potassium Chloride Carbon Dioxide BUN Creatinine Glucose POC Glucose Lactic Acid Calcium 7.7 L 8.0 L Phosphorus Magnesium 1.60 L Iron TIBC Total Creatine Kinase C-Reactive Protein Albumin Folate PTH Intact Urine WBC (Auto) Urine Creatinine Urine Chloride Urine Total Protein Vancomycin Trough Crossmatch 05/19/18 05/19/18 05/20/18 05:33 05:33 05:38 WBC RBC 2.95 L Hgb 8.8 L Hct 25.8 L MCHC Lymph % (Auto) 10.1 L [place] % (Auto) Lymph # 1.1 L [place] # Seg Neutrophils % 85.2 H Seg Neuts % (Manual) Lymphocytes % (Manual) Seg Neutrophils # 9.0 H Seg Neutrophils # Man Lymphocytes # (Manual) PT INR APTT POC ABG pH POC ABG pCO2 POC ABG pO2 Sodium 135 L Potassium Chloride Carbon Dioxide BUN Creatinine Glucose 132 H POC Glucose Lactic Acid Calcium 7.8 L 8.3 L Phosphorus Magnesium 1.40 L Iron TIBC Total Creatine Kinase C-Reactive Protein Albumin Folate PTH Intact Urine WBC (Auto) Urine Creatinine Urine Chloride Urine Total Protein Vancomycin Trough Crossmatch 05/21/18 05/21/18 05/22/18 04:46 15:30 06:49 WBC 20.0 H RBC 2.70 L Hgb 7.8 L Hct 23.3 L MCHC Lymph % (Auto) [place] % (Auto) Lymph # [place] # Seg Neutrophils % Seg Neuts % (Manual) 85.0 H Lymphocytes % (Manual) 4.0 L Seg Neutrophils # Seg Neutrophils # Man 17.0 H Lymphocytes # (Manual) 0.8 L PT INR APTT POC ABG pH POC ABG pCO2 POC ABG pO2 Sodium 135 L Potassium 3.5 L Chloride Carbon Dioxide 21 L BUN 22 H Creatinine Glucose POC Glucose Lactic Acid Calcium 8.1 L Phosphorus Magnesium Iron TIBC Total Creatine Kinase C-Reactive Protein Albumin Folate PTH Intact Urine WBC (Auto) 28.0 H Urine Creatinine Urine Chloride Urine Total Protein Vancomycin Trough Crossmatch 05/22/18 05/22/18 05/23/18 06:49 11:23 09:03 WBC RBC Hgb Hct MCHC Lymph % (Auto) [place] % (Auto) Lymph # [place] # Seg Neutrophils % Seg Neuts % (Manual) Lymphocytes % (Manual) Seg Neutrophils # Seg Neutrophils # Man Lymphocytes # (Manual) PT INR APTT POC ABG pH POC ABG pCO2 POC ABG pO2 Sodium 134 L Potassium 3.5 L Chloride Carbon Dioxide 21 L BUN 35 H 36 H Creatinine 1.7 H Glucose 107 H POC Glucose Lactic Acid Calcium 7.9 L Phosphorus Magnesium 2.50 H Iron TIBC Total Creatine Kinase C-Reactive Protein Albumin Folate PTH Intact Urine WBC (Auto) Urine Creatinine Urine Chloride Urine Total Protein Vancomycin Trough Crossmatch See Detail 05/23/18 05/23/18 05/23/18 09:03 09:03 17:34 WBC 26.3 H RBC 3.57 L Hgb 10.4 L Hct 31.1 L D MCHC Lymph % (Auto) [place] % (Auto) Lymph # [place] # Seg Neutrophils % Seg Neuts % (Manual) Lymphocytes % (Manual) Seg Neutrophils # Seg Neutrophils # Man Lymphocytes # (Manual) PT 18.3 H INR 1.43 H APTT 40.0 H POC ABG pH POC ABG pCO2 POC ABG pO2 Sodium Potassium Chloride Carbon Dioxide BUN Creatinine Glucose POC Glucose 108 H Lactic Acid Calcium Phosphorus Magnesium Iron TIBC Total Creatine Kinase C-Reactive Protein Albumin Folate PTH Intact Urine WBC (Auto) Urine Creatinine Urine Chloride Urine Total Protein Vancomycin Trough Crossmatch 05/23/18 05/24/18 05/24/18 21:14 04:43 08:04 WBC RBC Hgb Hct MCHC Lymph % (Auto) [place] % (Auto) Lymph # [place] # Seg Neutrophils % Seg Neuts % (Manual) Lymphocytes % (Manual) Seg Neutrophils # Seg Neutrophils # Man Lymphocytes # (Manual) PT INR APTT POC ABG pH POC ABG pCO2 POC ABG pO2 Sodium 146 H Potassium Chloride 108.6 H Carbon Dioxide BUN 33 H Creatinine Glucose 109 H POC Glucose 110 H 106 H Lactic Acid Calcium 8.3 L Phosphorus Magnesium 2.50 H Iron TIBC Total Creatine Kinase C-Reactive Protein Albumin Folate PTH Intact Urine WBC (Auto) Urine Creatinine Urine Chloride Urine Total Protein Vancomycin Trough Crossmatch 05/25/18 05/25/18 05/25/18 05:42 05:49 19:50 WBC RBC Hgb Hct MCHC Lymph % (Auto) [place] % (Auto) Lymph # [place] # Seg Neutrophils % Seg Neuts % (Manual) Lymphocytes % (Manual) Seg Neutrophils # Seg Neutrophils # Man Lymphocytes # (Manual) PT INR APTT POC ABG pH POC ABG pCO2 POC ABG pO2 Sodium 150 H Potassium Chloride 112.5 H Carbon Dioxide BUN 34 H Creatinine Glucose 102 H POC Glucose 107 H Lactic Acid Calcium Phosphorus Magnesium Iron TIBC Total Creatine Kinase C-Reactive Protein 34.50 H Albumin Folate PTH Intact Urine WBC (Auto) Urine Creatinine Urine Chloride Urine Total Protein Vancomycin Trough Crossmatch 05/25/18 05/25/18 05/25/18 19:50 21:05 22:46 WBC RBC Hgb Hct MCHC Lymph % (Auto) [place] % (Auto) Lymph # [place] # Seg Neutrophils % Seg Neuts % (Manual) Lymphocytes % (Manual) Seg Neutrophils # Seg Neutrophils # Man Lymphocytes # (Manual) PT INR APTT POC ABG pH 7.483 H POC ABG pCO2 24.0 L POC ABG pO2 72 L Sodium Potassium Chloride Carbon Dioxide BUN Creatinine Glucose POC Glucose Lactic Acid 5.90 H* Calcium Phosphorus Magnesium Iron TIBC Total Creatine Kinase C-Reactive Protein Albumin Folate PTH Intact Urine WBC (Auto) Urine Creatinine Urine Chloride Urine Total Protein Vancomycin Trough 25.1 H Crossmatch 05/25/18 05/26/18 05/26/18 22:46 00:21 00:51 WBC RBC Hgb Hct MCHC Lymph % (Auto) [place] % (Auto) Lymph # [place] # Seg Neutrophils % Seg Neuts % (Manual) Lymphocytes % (Manual) Seg Neutrophils # Seg Neutrophils # Man Lymphocytes # (Manual) PT INR APTT POC ABG pH POC ABG pCO2 POC ABG pO2 Sodium Potassium Chloride Carbon Dioxide BUN Creatinine Glucose POC Glucose 133 H Lactic Acid 8.10 H* 6.20 H* Calcium Phosphorus Magnesium Iron TIBC Total Creatine Kinase C-Reactive Protein Albumin Folate PTH Intact Urine WBC (Auto) Urine Creatinine Urine Chloride Urine Total Protein Vancomycin Trough Crossmatch 05/26/18 05/26/18 05/26/18 02:24 02:24 04:20 WBC 18.7 H RBC Hgb 11.6 L Hct MCHC Lymph % (Auto) [place] % (Auto) Lymph # [place] # Seg Neutrophils % Seg Neuts % (Manual) Lymphocytes % (Manual) Seg Neutrophils # Seg Neutrophils # Man Lymphocytes # (Manual) PT INR APTT POC ABG pH POC ABG pCO2 POC ABG pO2 Sodium 150 H Potassium Chloride 110.0 H Carbon Dioxide 19 L BUN 66 H Creatinine Glucose 166 H POC Glucose Lactic Acid 5.20 H* Calcium 6.9 L D Phosphorus 6.70 H D Magnesium Iron TIBC Total Creatine Kinase C-Reactive Protein Albumin Folate PTH Intact Urine WBC (Auto) Urine Creatinine Urine Chloride Urine Total Protein Vancomycin Trough Crossmatch 05/26/18 05/26/18 05/26/18 04:20 05:39 06:02 WBC RBC Hgb Hct MCHC Lymph % (Auto) [place] % (Auto) Lymph # [place] # Seg Neutrophils % Seg Neuts % (Manual) Lymphocytes % (Manual) Seg Neutrophils # Seg Neutrophils # Man Lymphocytes # (Manual) PT INR APTT POC ABG pH POC ABG pCO2 28.8 L POC ABG pO2 Sodium Potassium Chloride Carbon Dioxide BUN Creatinine Glucose POC Glucose 187 H Lactic Acid 5.10 H* Calcium Phosphorus Magnesium Iron TIBC Total Creatine Kinase C-Reactive Protein Albumin Folate PTH Intact Urine WBC (Auto) Urine Creatinine Urine Chloride Urine Total Protein Vancomycin Trough Crossmatch 05/26/18 07:29 WBC RBC Hgb Hct MCHC Lymph % (Auto) [place] % (Auto) Lymph # [place] # Seg Neutrophils % Seg Neuts % (Manual) Lymphocytes % (Manual) Seg Neutrophils # Seg Neutrophils # Man Lymphocytes # (Manual) PT INR APTT POC ABG pH POC ABG pCO2 POC ABG pO2 Sodium Potassium Chloride Carbon Dioxide BUN Creatinine Glucose POC Glucose Lactic Acid 4.80 H* Calcium Phosphorus Magnesium Iron TIBC Total Creatine Kinase C-Reactive Protein Albumin Folate PTH Intact Urine WBC (Auto) Urine Creatinine Urine Chloride Urine Total Protein Vancomycin Trough Crossmatch
[2018-05-26] MEDS ORDERED: D50W (25GM) Syringe IV ONE ×2 (09:59→16:00)
[2018-05-26] MEDS ORDERED: LEVAQUIN 500MG/100ML 500 MG/100 ML BAG IV SCH (10:00)
[2018-05-26] MEDS: FEOSOL PO SCH ×2 (10:23→23:24)
[2018-05-26] MEDS: FOLVITE PO SCH (10:23)
[2018-05-26] MEDS: LOPRESSOR PO SCH ×2 (10:23→23:22)
[2018-05-26] MEDS: NORVASC PO SCH (10:23)
[2018-05-26] MEDS: PEPCID PO SCH (10:40)
[2018-05-26] MEDS: MUCOMYST ORAL PO SCH (10:40)
--- NOTE | 2018-05-26 11:29 | Progress Note ---
Assessment and Plan Assessment: Sinus tachycardia Acute respiratory failure Status post bilateral neph tube placement due to hydronephrosis DVT - vascular following; patient could be anticoagulated (from neph tube standpoint) later this week (05/28/2018, POD 14). SBO / Pelvic mass - pending diverting colostomy MARYLOU HTN Anemia ? Sepsis Lactic acidosis Plan: Chest CTA negative for PE. Await echo. Cont lopressor. Cont supportive management. The patient has been seen in conjunction with Dr. Paz who agrees with the assessment and plan of care. Subjective Date of service: 05/26/18 Principal diagnosis: squamous cell ca - prostate bx - prelim report Interval history: pt resting in bed, on BiPAP. remains in sinus tachycardia on telemetry, HR 130s. family member at bedside. Objective Last Vital Signs Temp 99.8 F H 05/26/18 08:00 Pulse 133 H 05/26/18 10:23 Resp 49 H 05/26/18 10:00 BP 105/72 05/26/18 10:23 Pulse Ox 97 05/26/18 10:00 - Physical Examination General: Cachectic HEENT: Positive: PERRL Neck: Positive: neck supple, trachea midline Cardiac: Positive: Regular Rhythm, S1/S2, Tachycardia Lungs: Positive: Decreased Breath Sounds Neuro: Positive: Grossly Intact Abdomen: Positive: Soft. Negative: Tender Skin: Negative: Rash Musculoskeletal: No Pain Extremities: Absent: edema - Labs and Meds Cardiac Enzymes 05/25/18 Range/Units 22:46 CK-MB (CK-2) 2.3 (0.0-4.0) ng/mL CBC 05/26/18 Range/Units 02:24 WBC 18.7 H (4.5-11.0) K/mm3 RBC 3.98 (3.65-5.03) M/mm3 Hgb 11.6 L (11.8-15.2) gm/dl Hct 35.8 (35.5-45.6) % Plt Count 424 (140-440) K/mm3 Comprehensive Metabolic Panel 05/26/18 05/26/18 Range/Units 02:24 04:20 Sodium TNR 150 H Potassium TNR 3.6 Chloride TNR 110.0 H Carbon Dioxide TNR 19 L BUN TNR 66 H Creatinine TNR 1.0 Glucose TNR 166 H Calcium TNR 6.9 L D - Imaging and Cardiology EKG: report reviewed, image reviewed Echo: pending - Telemetry EKG Rhythm: Sinus Tachycardia - EKG Sinus rhythms and dysrhythmias: sinus tachycardia
[2018-05-26 11:34] LABS: Calcium 7.5 mg/dL (8.4-10.2)
--- NOTE | 2018-05-26 11:35 | Anesthesia Day of Surgery ---
Anesthesia Day of Surgery - Day of Surgery Patient Examined: Yes Patient H&P Reviewed: Yes Patient is NPO: Yes
--- NOTE | 2018-05-26 11:36 | Anesthesia Consultation ---
Anesthesia Consult and Med Hx Date of service: 05/26/18 - Airway Anesthetic Teeth Evaluation: Edentulous ROM Head & Neck: Adequate Mental/Hyoid Distance: Adequate Mallampati Class: Class I Intubation Access Assessment: Good - Pulmonary Exam CTA: Yes - Cardiac Exam Cardiac Exam: No Murmur - Pre-Operative Health Status ASA Pre-Surgery Classification: ASA4 Proposed Anesthetic Plan: General (ON BIPAP, Plan is GA with BIPAP post op) - Pulmonary Hx Asthma: Yes SOB: No COPD: No Home Oxygen Therapy: No Hx Pneumonia: No Hx Sleep Apnea: No - Cardiovascular System Hx Hypertension: No Hx Coronary Artery Disease: No Hx Heart Attack/AMI: No Hx Angina: No Hx Percutaneous Transluminal Coronary Angioplasty (PTCA): No Hx Cardia Arrhythmia: No Hx Pacemaker: No Hx Internal Defibrillator: No Hx Valvular Heart Disease: No Hx Heart Murmur: No Hx Peripheral Vascular Disease: No - Central Nervous System Hx Neuromuscular Disorder: No Hx Seizures: No CVA: No Hx Back Pain: No Hx Psychiatric Problems: No - Gastrointestinal Hx Ulcer: No Hx Gastroesophageal Reflux Disease: No - Endocrine Hx Renal Disease: No Hx End Stage Renal Disease: No Hx Cirrhosis: No Hx Liver Disease: No Hx Insulin Dependent Diabetes: No Hx Non-Insulin Dependent Diabetes: No Hx Thyroid Disease: No Hx Hypothyroidism: No Hx Hyperthyroidism: No - Hematic Hx Anemia: No Hx Sickle Cell Disease: No - Other Systems Hx Alcohol Use: No Hx Substance Use: No Hx Cancer: No Hx Obesity: No - Additional Comments Anesthesia Medical History Comments: resolving Acute Renal insuff
[2018-05-26] MEDS ORDERED: ZOSYN/NS 2.25 GM/50ML 2.25 GM/50 ML BAG IV SCH (12:00)
[2018-05-26] MEDS ORDERED: ZEMURON IV ONE ×2 (13:34→15:42)
[2018-05-26] MEDS ORDERED: QUELICIN ONE (13:34)
[2018-05-26] MEDS ORDERED: SUBLIMAZE ONE (13:35)
[2018-05-26] MEDS ORDERED: DIPRIVAN 10 MG/ML IV ONE (13:35)
[2018-05-26] MEDS ORDERED: ZOSYN/NS 4.5GM/100ML 4.5 GM/100 ML VIAL IV SCH (14:00)
[2018-05-26] MEDS ORDERED: NEO SYNEPHRINE/NS Syringe(OR USE) IV ONE ×2 (14:09→16:31)
[2018-05-26] MEDS ORDERED: XYLOCAINE MPF 2% ONE (14:09)
[2018-05-26] MEDS ORDERED: NACL 0.9% 500 ML 500 ML ONE (14:32)
--- NOTE | 2018-05-26 14:34 | Hem/Onc Progress Note ---
Assessment and Plan Generic Name Dose Route Start Last Admin Trade Name Kennethq PRN Reason Stop Dose Admin Acetaminophen 650 mg 05/23/18 12:30 05/26/18 00:[address] 650 mg Q6H PRN Administration Pain, Mild (1-3) Acetaminophen 650 mg 05/23/18 12:32 Tylenol PO Q6H PRN Pain, Mild (1-3) Amlodipine Besylate 10 mg 05/14/18 07:54 05/26/18 10:23 Norvasc PO Not Given QDAY [facility] Clonidine HCl 0.2 mg 05/17/18 06:00 05/26/18 05:41 Catapres PO Not Given Q12H [facility] Famotidine 20 mg 05/26/18 10:00 05/26/18 10:40 Pepcid PO Not Given QDAY [facility] Ferrous Sulfate 325 mg 05/17/18 22:00 05/26/18 10:23 Feosol PO Not Given BID [facility] Folic Acid 1 mg 05/18/18 10:00 05/26/18 10:23 Folvite PO Not Given QDAY [facility] Hydralazine HCl 20 mg 05/13/18 11:59 05/25/18 00:00 Apresoline IV 20 mg Q4HR PRN Administration For SBP>170 or DBP>110 Hydralazine HCl 100 mg 05/14/18 14:00 05/26/18 05:41 Apresoline PO Not Given Q8HR [facility] Dextrose/Sodium Chloride 1,000 mls @ 125 mls/hr 05/25/18 17:00 05/25/18 21:25 D5ns 0.2% IV 75 mls/hr DIRECT [facility] Administration Amino Acids/Electrolytes/Dextrose 2,016 mls @ 84 mls/hr 05/26/18 20:00 Tpn Adult IV 05/27/18 19:59 DAILY@2000 [facility] Protocol Levofloxacin/Dextrose 500 mg in 100 mls @ 100 mls/hr 05/28/18 10:00 Levaquin 500mg/100ml IV 05/31/18 09:59 Q48HR [facility] Protocol Piperacillin Sod/Tazobactam Sod 2.25 gm in 50 mls @ 100 mls/hr 05/26/18 15:00 Zosyn/Ns 2.25 Gm/50ml IV Q8HR [facility] Fentanyl Citrate 2,000 mcg in 100 mls @ 3.275 mls/hr 05/26/18 20:00 Fentanyl Drip Premix IV TITR [facility] Protocol 1 MCG/KG/HR Norepinephrine 4 mg in 250 mls @ 7.5 mls/hr 05/26/18 20:00 Levophed Drip 4 Mg/Ns 250 Ml IV TITR [facility] Protocol 2 MCG/MIN Sodium Bicarbonate 100 meq/ 1,100 mls @ 100 mls/hr 05/26/18 21:00 Dextrose IV DIRECT [facility] Metoprolol Tartrate 100 mg 05/24/18 21:43 05/26/18 10:23 Lopressor PO Not Given BID [facility] Morphine Sulfate 2 mg 05/15/18 02:37 05/25/18 19:40 Morphine IV 2 mg Q4H PRN Administration Pain, Moderate (4-6) Oxycodone/Acetaminophen 2 tab 05/17/18 13:40 05/22/18 06:15 Percocet 5/325 PO 2 tab Q6H PRN Administration Pain, Moderate (4-6) bowel obstruction - due diverting colostomy #Pelvic mass Large pelvic mass between bladder and rectum with large lymph nodes, s/p cystoscopy prostate area bx - prelim - sq cell ca # CT showed bowel obstruction - NGT - sx team following # anemia low folate on replacement # leukocytosis on 05/22 - we will follow - likely reactive # h/o Acute kidney injury due to pelvic mass - Nephrology following. Ultrasound Kidneys showed bilat hydronephrosis CT Abd shows Pelvic mass with multiple large lymph nodes Had bilateral nephrostomy tubes placed 05/14/[address] Freeman. #Acute DVT right leg - below knee No anticoagulation for now because of bilateral nephrostomy tubes and acute abdo issues. There is plan for repeat radiology # Hypertension - hospitalist following # h/o electrolyte abn - being followed by nephrology # h/o Fever - Cystoscopy done it is very peculiar to have sq cell ca in prostate area Ct chest was done - CTA - no PE I had d/w surgical team to get more tissue while doing diverting colostomy - Patient Problems (1) Pelvic mass in male Current Visit: Yes Status: Acute Subjective Date of service: 05/26/18 Principal diagnosis: pelvic mass Interval history: pt transferred to critical unit pt due diverting colostomy today 05/26 - d/w brother and pt abdo distended NGT suction+ Objective - Constitutional Vitals: Last Vital Signs Temp 97.7 F 05/26/18 12:00 Pulse 131 H 05/26/18 13:15 Resp 47 H 05/26/18 13:15 BP 104/74 05/26/18 13:15 Pulse Ox 98 05/26/18 13:30 General appearance: mild distress Performance status: 4-completely disabled - EENT Eyes: PERRL ENT: clear oral mucosa Lymph node exam: negative cervical, negative supraclavicular - Respiratory Respiratory effort: Positive: normal Respiratory: bilateral: CTA (anteriorly) - Cardiovascular Heart Sounds: Present: S1 & S2 Extremities: No edema - Gastrointestinal General gastrointestinal: Present: soft, other (NGT +) Rectal Exam: deferred - Genitourinary Male genitourinary: Present: deferred - Integumentary Integumentary: warm - Musculoskeletal Musculoskeletal: generalized weakness - Allied health notes Allied health notes reviewed: nursing - Labs Lab Results: Laboratory Results - last 24 hr 05/25/18 05/25/18 05/25/18 16:42 19:50 19:50 WBC RBC Hgb Hct MCV MCH MCHC RDW Plt Count POC ABG pH POC ABG pCO2 POC ABG pO2 POC ABG HCO3 POC ABG Total CO2 POC ABG O2 Sat POC ABG Base Excess FiO2 Sodium Potassium Chloride Carbon Dioxide Anion Gap BUN Creatinine Estimated GFR BUN/Creatinine Ratio Glucose POC Glucose 96 Lactic Acid 5.90 H* Calcium Phosphorus Magnesium Total Creatine Kinase CK-MB (CK-2) CK-MB (CK-2) Rel Index C-Reactive Protein 34.50 H Vancomycin Trough Random Vancomycin 05/25/18 05/25/18 05/25/18 21:05 22:46 22:46 WBC RBC Hgb Hct MCV MCH MCHC RDW Plt Count POC ABG pH 7.483 H POC ABG pCO2 24.0 L POC ABG pO2 72 L POC ABG HCO3 18.0 POC ABG Total CO2 19 POC ABG O2 Sat 96 POC ABG Base Excess -5 FiO2 28 Sodium Potassium Chloride Carbon Dioxide Anion Gap BUN Creatinine Estimated GFR BUN/Creatinine Ratio Glucose POC Glucose Lactic Acid 8.10 H* Calcium Phosphorus Magnesium Total Creatine Kinase CK-MB (CK-2) CK-MB (CK-2) Rel Index C-Reactive Protein Vancomycin Trough 25.1 H Random Vancomycin 05/25/18 05/26/1818 22:46 00:21 00:51 WBC RBC Hgb Hct MCV MCH MCHC RDW Plt Count POC ABG pH POC ABG pCO2 POC ABG pO2 POC ABG HCO3 POC ABG Total CO2 POC ABG O2 Sat POC ABG Base Excess FiO2 Sodium Potassium Chloride Carbon Dioxide Anion Gap BUN Creatinine Estimated GFR BUN/Creatinine Ratio Glucose POC Glucose 133 H Lactic Acid 6.20 H* Calcium Phosphorus Magnesium Total Creatine Kinase 156 CK-MB (CK-2) 2.3 CK-MB (CK-2) Rel Index 1.4 C-Reactive Protein Vancomycin Trough Random Vancomycin 05/26/18 05/26/18 05/26/18 02:24 02:24 02:24 WBC 18.7 H RBC 3.98 Hgb 11.6 L Hct 35.8 MCV 90 MCH 29 MCHC 32 RDW 14.9 Plt Count 424 POC ABG pH POC ABG pCO2 POC ABG pO2 POC ABG HCO3 POC ABG Total CO2 POC ABG O2 Sat POC ABG Base Excess FiO2 Sodium TNR Potassium TNR Chloride TNR Carbon Dioxide TNR Anion Gap TNR BUN TNR Creatinine TNR Estimated GFR TNR BUN/Creatinine Ratio TNR Glucose TNR POC Glucose Lactic Acid 5.20 H* Calcium TNR Phosphorus TNR Magnesium TNR Total Creatine Kinase CK-MB (CK-2) CK-MB (CK-2) Rel Index C-Reactive Protein Vancomycin Trough Random Vancomycin 05/26/18 05/26/18 05/26/18 04:20 04:20 05:39 WBC RBC Hgb Hct MCV MCH MCHC RDW Plt Count POC ABG pH POC ABG pCO2 POC ABG pO2 POC ABG HCO3 POC ABG Total CO2 POC ABG O2 Sat POC ABG Base Excess FiO2 Sodium 150 H Potassium 3.6 Chloride 110.0 H Carbon Dioxide 19 L Anion Gap 25 BUN 66 H Creatinine 1.0 Estimated GFR > 60 BUN/Creatinine Ratio 66 Glucose 166 H POC Glucose 187 H Lactic Acid 5.10 H* Calcium 6.9 L D Phosphorus 6.70 H D Magnesium 2.20 Total Creatine Kinase CK-MB (CK-2) CK-MB (CK-2) Rel Index C-Reactive Protein Vancomycin Trough Random Vancomycin 05/26/18 05/26/18 05/26/18 06:02 07:29 11:00 WBC RBC Hgb Hct MCV MCH MCHC RDW Plt Count POC ABG pH 7.449 POC ABG pCO2 28.8 L POC ABG pO2 82 POC ABG HCO3 20.0 POC ABG Total CO2 21 POC ABG O2 Sat 97 POC ABG Base Excess -4 FiO2 45 Sodium Potassium Chloride Carbon Dioxide Anion Gap BUN Creatinine Estimated GFR BUN/Creatinine Ratio Glucose POC Glucose Lactic Acid 4.80 H* 3.80 H* Calcium Phosphorus Magnesium Total Creatine Kinase CK-MB (CK-2) CK-MB (CK-2) Rel Index C-Reactive Protein Vancomycin Trough Random Vancomycin 05/26/18 05/26/18 05/26/18 11:01 11:01 12:28 WBC RBC Hgb Hct MCV MCH MCHC RDW Plt Count POC ABG pH POC ABG pCO2 POC ABG pO2 POC ABG HCO3 POC ABG Total CO2 POC ABG O2 Sat POC ABG Base Excess FiO2 Sodium 150 H Potassium 5.3 H D Chloride 110.3 H Carbon Dioxide 21 L Anion Gap 24 BUN 75 H Creatinine 4.3 H D Estimated GFR 18 BUN/Creatinine Ratio 17 Glucose 161 H POC Glucose 114 H Lactic Acid Calcium 7.5 L Phosphorus Magnesium Total Creatine Kinase CK-MB (CK-2) CK-MB (CK-2) Rel Index C-Reactive Protein Vancomycin Trough Random Vancomycin 34.3
[2018-05-26] MEDS ORDERED: NACL 0.9% IR ONE (15:03)
[2018-05-26] MEDS ORDERED: DECADRON ONE (15:42)
[2018-05-26] MEDS ORDERED: PROAIR IH ONE (15:50)
[2018-05-26] MEDS ORDERED: VERSED ONE (15:50)
[2018-05-26] MEDS ORDERED: HESPAN 500 ML IV ONE (15:59)
[2018-05-26] MEDS ORDERED: CALCIUM GLUCONATE IV ONE (16:05)
[2018-05-26] MEDS ORDERED: CALCIUM CHLORIDE IV ONE (16:18)
[2018-05-26] MEDS ORDERED: NACL 0.9% 400 ML ONE (16:31)
[2018-05-26] MEDS ORDERED: NACL 0.9% 1000 ML 1,000 ML ONE ×3 (16:46→20:47)
[2018-05-26] MEDS ORDERED: VERSED IV ONE (16:54)
[2018-05-26] MEDS ORDERED: DIPRIVAN 10 MG/ML 1,000 MG/100 ML BOTTLE IV ONE (17:04)
--- NOTE | 2018-05-26 17:14 | Vascular Lab Report ---
LOWER EXTREMITY VENOUS DUPLEX: REASON FOR EXAM: Deep venous thrombosis. COMMENTS ON THE RIGHT: Soleal vein thrombus is seen in the calf. This appears to be acute.. The remaining veins visualized are freely compressible without evidence of internal echogenicity. Spontaneous and phasic flow is present proximally. COMMENTS ON THE LEFT: Acute thrombus is seen in the lesser saphenous vein and an isolated soleal vein. The remaining veins visualized are freely compressible without evidence of internal echogenicity. Spontaneous and phasic flow is present proximally. IMPRESSION: Acute venous thrombosis of the left soleal vein and lesser saphenous vein. Acute thrombosis of the right soleal vein.
[2018-05-26] MEDS ORDERED: DILAUDID ONE (17:58)
--- NOTE | 2018-05-26 18:40 | Operative Report ---
PREOPERATIVE DIAGNOSIS: Rule out large pelvic tumor causing bowel obstruction. POSTOPERATIVE DIAGNOSES: 1. Purulence noted in the pelvis, rule out pelvic abscess secondary to possible perforation. 2. Rule out tumor necrosis and tumor perforation. PROCEDURE: Exploratory laparotomy, lysis of adhesions. Enterostomy tube decompression, loop colostomy, and a large triple lumen sump drainage of the pelvis. SURGEON: Lul Keita MD HAND FRETTED INSTRUMENT MAKER: Dr. Isabel. ANESTHESIA: General. ESTIMATED BLOOD LOSS: Minimal. FINDINGS: As mentioned, triple lumen sump drain left draining the pelvis. DESCRIPTION OF PROCEDURE: The patient was taken to the operating room, prepped and draped in usual sterile fashion. The patient was quite distended. A midline incision was made and abdomen entered. Upon entrance into the abdomen, the entire bowel was noted to be matted including the omentum and one large mass. It was actually difficult to even distinguish a small from large bowel. Purulence was noted upon entrance into the abdomen ____ areas of the pelvis. Aerobic and anaerobic cultures were taken. The entire area was suctioned dry. Some fluid was also noted through the gutters and subphrenic spaces. Extensive irrigation was performed. The small bowel was quite dilated and was difficult to manipulate ____ phlegmonous type mass. A portion of the dilated small bowel was chosen and a pursestring suture placed. A small enterotomy was performed and a sump suction was placed, and the entire small bowel suctioned and decompressed. The pursestring was then closed. Other Lembert suture was also placed over the area. The area was carefully inspected and noted to be well closed with no evidence of any leakage. Further inspection revealed necrotic type mass/abscess in the pelvis, which involved the entire pelvic floor, again anatomy could not be well delineated. A triple lumen sump of all drain was left draining the pelvis. The entire was then irrigated copiously and suctioned dried once again. Even the colon and small bowel were difficult to distinguish, there was one area that appeared to be colon, possibly transverse colon, but it was actually noted below the umbilicus. Could not see the tenia. The only reason we highly suspect that it was colon is because we felt what appeared to be hard stool within its lumen. The entire fascia, subcutaneous, and skin were closed in single layer retention sutures using 5-Ethibond suture. This portion of colon was brought out as a loop colostomy through the midline incision as it could not be well mobilized. After the fascia was completely closed with retentions, a colostomy chel was placed over the loop colostomy and secured on either side of the skin with 2-0 silk suture. Electrocautery was used to then create an enterotomy and indeed colon was confirmed. The colostomy was then matured after isolating it from the rest of the skin with laps and towels. The ostomy was then secured to the skin in a Miryam type fashion from skin to serosa and back out to the lumen itself. This was done in its entire circumference. Digital palpation of the colostomy was then performed to assure that both lumens were patent and open, which they were. The patient tolerated procedure well, but remains in critical condition. The patient will be further recovered in recovery room and then subsequently transferred to ICU. Condition is critical. JOB# [id number] ALISHA/ALTA
[2018-05-26] MEDS ORDERED: NACL 0.9% 1000 ML 1,000 ML IV ONE (18:55)
[2018-05-26 19:37] LABS: Hematocrit 24.6 % (35.5-45.6); Hemoglobin 7.8 gm/dl (11.8-15.2); Mean Corpuscular HGB Conc 32 % (32-34); Mean Corpuscular Hemoglobin 29 pg (28-32); Mean Corpuscular Volume 91 fl (84-94); Platelet Count 348 K/mm3 (140-440); Red Cell Distribution Width 15.3 % (13.2-15.2)
[2018-05-26 19:48] LABS: Albumin 1.3 g/dL (3.9-5); Calcium 6.7 mg/dL (8.4-10.2)
[2018-05-26] MEDS ORDERED: LEVOPHED DRIP 4 MG/NS 250 ML 4 MG/250 ML BAG IV SCH (20:00)
[2018-05-26] MEDS ORDERED: TPN ADULT 2,016 ML IV SCH (20:00)
[2018-05-26] MEDS ORDERED: fentaNYL DRIP Premix 2,000 MCG/100 ML BAG IV SCH (20:00)
[2018-05-26 20:44] LABS: Basophils % (Manual) 0 % (0.0-1.8); RBC Morphology Normal; Total Cells Counted 100
[2018-05-26] MEDS ORDERED: D50W (25GM) Vial IV ONE (20:52)
[2018-05-26] MEDS ORDERED: HumuLIN R IV NR (20:52)
[2018-05-26] MEDS ORDERED: CALCIUM GLUCONATE 2,000 MG in NACL 0.9% 100 ML IV ONE (20:54)
--- NOTE | 2018-05-26 20:56 | XRay Report ---
FINAL REPORT EXAM: XR CHEST 1V AP HISTORY: ett post op TECHNIQUE: AP portable view of the chest PRIORS: CXR 05/26/2018 at 606 hours FINDINGS: Lines, tubes, and devices: The endotracheal tube has been placed terminating 7 cm above the patience. There is a right jugular catheter terminating in the mid superior vena cava. Nasogastric tube however terminates in the mid esophagus and should be advanced at least 20 cm. Lungs and pleura: Trachea is normal in position. There is alveolar consolidation in the left lung base, worse than seen previously. Underlying air bronchograms are noted. Cardiomediastinal silhouette: Cardiac and mediastinal silhouettes are unremarkable. Other: Bony structures are intact. IMPRESSION: 1. Nasogastric tube terminates in the mid esophagus. This should be advanced 2. ET tube and right jugular catheter are in satisfactory position 3. Increased alveolar consolidation in the left base
[2018-05-26] MEDS ORDERED: SODIUM BICARBONATE 100 MEQ in D5W 1,000 ML IV SCH (21:00)
[2018-05-26] MEDS ORDERED: SODIUM BICARBONATE 150 MEQ in D5W 1,000 ML IV SCH (21:00)
[2018-05-26] MEDS ORDERED: D50W (25GM) Syringe IV NR (21:10)
--- NOTE | 2018-05-26 23:30 | XRay Report ---
FINAL REPORT PROCEDURE: XR ABDOMEN 1V AP TECHNIQUE: AP supine portable radiograph of the abdomen was obtained at 05/26/2018 22:37 (EST) . HISTORY: Confirmation of NG tube COMPARISON: No prior studies are available for comparison. FINDINGS: Bowel gas pattern: Nonobstructive. Masses or calcifications: None. Bony structures: Normal. Other: Heart size is normal. There is a small left pleural effusion. The endotracheal tube is in the mid trachea. The NG tube is in the stomach. There is a right-sided central venous catheter. The tip is in the superior vena cava. There are bilateral nephrostomy tubes. IMPRESSION: Heart size is normal. There is a small left pleural effusion. The endotracheal tube is in the mid trachea. The NG tube is in the stomach. There is a right-sided central venous catheter. The tip is in the superior vena cava. There are bilateral nephrostomy tubes. There is no acute bowel abnormality. There is no free air.
[2018-05-26] MEDS: ZOSYN/NS 2.25 GM/50ML 2.25 GM/50 ML BAG IV SCH (23:31)
[2018-05-27] MEDS: MUCOMYST ORAL PO SCH
[2018-05-27] MEDS: APRESOLINE PO SCH ×2 (00:02→05:33)
[2018-05-27 02:18] LABS: Calcium 6.7 mg/dL (8.4-10.2)
[2018-05-27] MEDS ORDERED: D50W (25GM) Vial IV ONE ×2 (05:00→05:12)
[2018-05-27] MEDS ORDERED: HumuLIN R IV NR (05:10)
[2018-05-27] MEDS: CATAPRES PO SCH (05:34)
[2018-05-27] MEDS: ZOSYN/NS 2.25 GM/50ML 2.25 GM/50 ML BAG IV SCH (05:36)
[2018-05-27 05:52] LABS: Hematocrit 25.9 % (35.5-45.6); Hemoglobin 8.1 gm/dl (11.8-15.2); Mean Corpuscular HGB Conc 32 % (32-34); Mean Corpuscular Hemoglobin 29 pg (28-32); Mean Corpuscular Volume 91 fl (84-94); Platelet Count 380 K/mm3 (140-440); Red Blood Count 2.86 M/mm3 (3.65-5.03); Red Cell Distribution Width 15.5 % (13.2-15.2)
[2018-05-27 05:55] LABS: Albumin 1.5 g/dL (3.9-5)
[2018-05-27] MEDS ORDERED: D50W (25GM) Syringe IV NR (06:00)
[2018-05-27] MEDS ORDERED: D50W (25GM) Syringe IV ONE ×2 (06:00→09:00)
[2018-05-27] MEDS ORDERED: VANCOMYCIN PHARMACY TO DOSE IV SCH (07:00)
--- NOTE | 2018-05-27 08:23 | Consultation ---
History of Present Illness - Reason for Consult Consult date: 05/27/18 fever, leukocytosis possible sepsis Requesting physician: CODY HACKETT - History of Present Illness 52 y/o male with history of Uncontrolled HTN; admitted on 05/13/18 due to 40 hours history of worsening bilateral leg swelling, SOB and no urine output. He had abdominal pain, bilateral leg swelling, stopped making urine. Also noted weight loss of over 50 pounds in the last 3 months. It never have seen a primary care physician. History is limited since patient is intubated and no family members at bedside. In the ED initial temperature 97.8, heart rate 99, respirations 16, O2 sat 98, blood pressure 197/120. Initial white count 7.8, hemoglobin 9.4, platelets 363. Creat 13. UA on 05/13 was negative. Chest x-ray showed left pleural effusion, pulmonary patchy consolidation with her son Doppler of the legs showed right lower extremity DVT and superficial left lower extremity thrombosis. CT of the abdomen on admission showed large necrotic mass in the posterior bladder measuring 8.5 x 10.8 x 8.1. Enlarged pelvic lymph nodes, bilateral hydronephrosis. CTA of the chest showed no PE, bibasilar atelectases and pericardial effusion. 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 By 05/18/2018 patient underwent cystoscopy with right great toe pyelogram found to have a bladder mass and prostate mass. On 05/26 patient underwent a diverting colostomy. C3, C4, ZEUS, and ANCA all negative. UA 05/21 28 wbc, trace LE. Microbiology: Blood cultures: 05/15 neg 05/20 neg 05/26 ngtd Urine cultures: 05/21 neg Current Antimicrobials: Zosyn 05/19 Levaquin 05/26 Previous Antimicrobials: Past History Past Medical History: No medical history Past Surgical History: No surgical history Social history: single, Lives alone, smoking (Smokes 1 pack cigarettes daily), full code, other (Alcohol once to twice a week) Family history: no significant family history Medications and Allergies Allergies Allergy/AdvReac Type Severity Reaction Status Date / Time No Known Allergies Allergy Verified 10/31/16 11:50 Home Medications Medication Instructions Recorded Confirmed Last Taken Type No Known Home Medications [No 05/13/18 05/13/18 Unknown History Reported Home Medications] Active Meds: Active Medications Acetaminophen (Tylenol) 650 mg NV Q6H PRN PRN Reason: Pain, Mild (1-3) Last Admin: 05/26/18 00:06 Dose: 650 mg Acetaminophen (Tylenol) 650 mg PO Q6H PRN PRN Reason: Pain, Mild (1-3) Amlodipine Besylate (Norvasc) 10 mg PO QDAY [facility] Last Admin: 05/26/18 10:23 Dose: Not Given Clonidine HCl (Catapres) 0.2 mg PO Q12H [facility] Last Admin: 05/27/18 05:34 Dose: 0.2 mg Dextrose (D50w (25gm) Syringe) 50 ml IV ONCE ONE Stop: 05/27/18 09:01 Famotidine (Pepcid) 20 mg PO QDAY [facility] Last Admin: 05/26/18 10:40 Dose: Not Given Ferrous Sulfate (Ferrous Sulfate) 300 mg PO BID [facility] Folic Acid (Folvite) 1 mg PO QDAY [facility] Last Admin: 05/26/18 10:23 Dose: Not Given Hydralazine HCl (Apresoline) 20 mg IV Q4HR PRN PRN Reason: For SBP>170 or DBP>110 Last Admin: 05/25/18 00:00 Dose: 20 mg Hydralazine HCl (Apresoline) 100 mg PO Q8HR [facility] Last Admin: 05/27/18 05:33 Dose: Not Given Dextrose/Sodium Chloride (D5ns 0.2%) 1,000 mls @ 125 mls/hr IV DIRECT [facility] Last Admin: 05/25/18 21:25 Dose: 75 mls/hr Amino Acids/Electrolytes/Dextrose (Tpn Adult) 2,016 mls @ 84 mls/hr IV DAILY@ 1999 [facility]; Protocol Stop: 05/27/18 19:59 Levofloxacin/Dextrose (Levaquin 500mg/100ml) 500 mg in 100 mls @ 100 mls/hr IV Q48HR [facility]; Protocol Stop: 05/31/18 09:59 Piperacillin Sod/Tazobactam Sod (Zosyn/Ns 2.25 Gm/50ml) 2.25 gm in 50 mls @ 100 mls/hr IV Q8HR [facility] Last Admin: 05/27/18 05:36 Dose: 200 mls/hr Fentanyl Citrate (Fentanyl Drip Premix) 2,000 mcg in 100 mls @ 3.275 mls/hr IV TITR [facility]; Protocol Norepinephrine (Levophed Drip 4 Mg/Ns 250 Ml) 4 mg in 250 mls @ 7.5 mls/hr IV TITR [facility]; Protocol Sodium Bicarbonate 100 meq/ (Dextrose) 1,100 mls @ 100 mls/hr IV DIRECT [facility] Last Admin: 05/26/18 22:45 Dose: 100 mls/hr Insulin Human Regular (Humulin R) 15 units IV ONCE ONE Stop: 05/27/18 09:01 Metoprolol Tartrate (Lopressor) 100 mg PO BID [facility] Last Admin: 05/26/18 23:22 Dose: Not Given Morphine Sulfate (Morphine) 2 mg IV Q4H PRN PRN Reason: Pain, Moderate (4-6) Last Admin: 05/25/18 19:40 Dose: 2 mg Oxycodone/Acetaminophen (Percocet 5/325) 2 tab PO Q6H PRN PRN Reason: Pain, Moderate (4-6) Last Admin: 05/22/18 06:15 Dose: 2 tab Physical Examination - Physical Exam Narrative exam: General appearance: Alert in NAD, conversant Eyes: anicteric sclerae, moist conjunctivae; no lid-lag; PERRLA HENT: Atraumatic; oropharynx +EET +NGT. Normal external ears. +temporal wasting Neck: Trachea midline; supple, no thyromegaly or lymphadenopathy Lungs: amy rhonchi CV: RRR, no murmurs Abdomen: Soft, +diverting colostomy +multiple drains and amy PC nephros Extremities: No peripheral edema or extremity lymphadenopathy Skin: Normal temperature, turgor and texture; no rash, ulcers or subcutaneous nodules Psych: sedated. Neuro: sedated Lines: - Constitutional Vitals: Vital Signs Temp Pulse Resp BP Pulse Ox 97.3 F L 105 H 26 H 118/73 95 05/27/18 08:00 05/27/18 08:15 05/27/18 08:15 05/27/18 08:15 05/27/18 08:15 Temperature -Last 24 Hours Temperature 97.3 F Temperature 97.6 F Temperature 97.8 F Temperature 97.4 F Temperature 97.7 F Temperature 99.5 F Temperature 99.4 F Temperature 97.7 F Temperature 97.7 F Results - Labs CBC & Chem 7: 05/27/18 05:15 05/27/18 05:15 Labs: Abnormal lab results 05/26/18 05/26/18 05/26/18 Range/Units 01:13 04:20 07:29 WBC (4.5-11.0) K/mm3 RBC (3.65-5.03) M/mm3 Hgb (11.8-15.2) gm/dl Hct (35.5-45.6) % RDW (13.2-15.2) % Seg Neuts % (Manual) (40.0-70.0) % Lymphocytes % (Manual) (13.4-35.0) % Seg Neutrophils # Man (1.8-7.7) K/mm3 Lymphocytes # (Manual) (1.2-5.4) K/mm3 POC ABG pH (7.35-7.45) POC ABG pCO2 (35-45) POC ABG pO2 (80-105) Sodium 147 H 150 H (137-145) mmol/L Potassium 6.2 H* D (3.6-5.0) mmol/L Chloride 111.9 H 110.0 H (98-107) mmol/L Carbon Dioxide 19 L 19 L (22-30) mmol/L BUN 80 H 66 H (9-20) mg/dL Creatinine 5.1 H D (0.8-1.5) mg/dL Glucose 112 H 166 H (75-100) mg/dL POC Glucose (70-105) Lactic Acid 4.80 H* (0.7-2.0) mmol/L Calcium 6.7 L D 6.9 L (8.4-10.2) mg/dL Phosphorus 6.70 H D (2.5-4.5) mg/dL AST (5-40) units/L ALT (7-56) units/L Alkaline Phosphatase (35-129) units/L Total Protein (6.3-8.2) g/dL Albumin (3.9-5) g/dL 05/26/18 05/26/18 05/26/18 Range/Units 11:00 11:01 12:28 WBC (4.5-11.0) K/mm3 RBC (3.65-5.03) M/mm3 Hgb (11.8-15.2) gm/dl Hct (35.5-45.6) % RDW (13.2-15.2) % Seg Neuts % (Manual) (40.0-70.0) % Lymphocytes % (Manual) (13.4-35.0) % Seg Neutrophils # Man (1.8-7.7) K/mm3 Lymphocytes # (Manual) (1.2-5.4) K/mm3 POC ABG pH (7.35-7.45) POC ABG pCO2 (35-45) POC ABG pO2 (80-105) Sodium 150 H (137-145) mmol/L Potassium 5.3 H D (3.6-5.0) mmol/L Chloride 110.3 H (98-107) mmol/L Carbon Dioxide 21 L (22-30) mmol/L BUN 75 H (9-20) mg/dL Creatinine 4.3 H D (0.8-1.5) mg/dL Glucose 161 H (75-100) mg/dL POC Glucose 114 H (70-105) Lactic Acid 3.80 H* (0.7-2.0) mmol/L Calcium 7.5 L (8.4-10.2) mg/dL Phosphorus (2.5-4.5) mg/dL AST (5-40) units/L ALT (7-56) units/L Alkaline Phosphatase (35-129) units/L Total Protein (6.3-8.2) g/dL Albumin (3.9-5) g/dL 05/26/18 05/26/18 05/26/18 Range/Units 18:00 18:02 19:17 WBC 21.7 H (4.5-11.0) K/mm3 RBC 2.70 L (3.65-5.03) M/mm3 Hgb 7.8 L D (11.8-15.2) gm/dl Hct 24.6 L D (35.5-45.6) % RDW 15.3 H (13.2-15.2) % Seg Neuts % (Manual) 94.0 H (40.0-70.0) % Lymphocytes % (Manual) 3.0 L (13.4-35.0) % Seg Neutrophils # Man 20.4 H (1.8-7.7) K/mm3 Lymphocytes # (Manual) 0.7 L (1.2-5.4) K/mm3 POC ABG pH 7.159 L (7.35-7.45) POC ABG pCO2 54.5 H (35-45) POC ABG pO2 252 H (80-105) Sodium 151 H (137-145) mmol/L Potassium 6.1 H* (3.6-5.0) mmol/L Chloride 117.0 H (98-107) mmol/L Carbon Dioxide 20 L (22-30) mmol/L BUN 77 H (9-20) mg/dL Creatinine 4.6 H (0.8-1.5) mg/dL Glucose (75-100) mg/dL POC Glucose (70-105) Lactic Acid (0.7-2.0) mmol/L Calcium 6.7 L (8.4-10.2) mg/dL Phosphorus (2.5-4.5) mg/dL AST 1041 H (5-40) units/L ALT 406 H (7-56) units/L Alkaline Phosphatase 281 H (35-129) units/L Total Protein 4.4 L (6.3-8.2) g/dL Albumin 1.3 L (3.9-5) g/dL 05/27/18 05/27/18 05/27/18 Range/Units 01:01 05:15 05:15 WBC 24.9 H (4.5-11.0) K/mm3 RBC 2.86 L (3.65-5.03) M/mm3 Hgb 8.1 L (11.8-15.2) gm/dl Hct 25.9 L (35.5-45.6) % RDW 15.5 H (13.2-15.2) % Seg Neuts % (Manual) (40.0-70.0) % Lymphocytes % (Manual) (13.4-35.0) % Seg Neutrophils # Man (1.8-7.7) K/mm3 Lymphocytes # (Manual) (1.2-5.4) K/mm3 POC ABG pH 7.205 L (7.35-7.45) POC ABG pCO2 53.0 H (35-45) POC ABG pO2 (80-105) Sodium 149 H (137-145) mmol/L Potassium 6.9 H* (3.6-5.0) mmol/L Chloride 113.5 H (98-107) mmol/L Carbon Dioxide (22-30) mmol/L BUN 89 H (9-20) mg/dL Creatinine 5.2 H (0.8-1.5) mg/dL Glucose 118 H (75-100) mg/dL POC Glucose (70-105) Lactic Acid (0.7-2.0) mmol/L Calcium 7.0 L (8.4-10.2) mg/dL Phosphorus 9.70 H D (2.5-4.5) mg/dL AST 876 H (5-40) units/L ALT 408 H (7-56) units/L Alkaline Phosphatase (35-129) units/L Total Protein 5.2 L (6.3-8.2) g/dL Albumin 1.5 L (3.9-5) g/dL 05/27/18 Range/Units 06:11 WBC (4.5-11.0) K/mm3 RBC (3.65-5.03) M/mm3 Hgb (11.8-15.2) gm/dl Hct (35.5-45.6) % RDW (13.2-15.2) % Seg Neuts % (Manual) (40.0-70.0) % Lymphocytes % (Manual) (13.4-35.0) % Seg Neutrophils # Man (1.8-7.7) K/mm3 Lymphocytes # (Manual) (1.2-5.4) K/mm3 POC ABG pH 7.265 L (7.35-7.45) POC ABG pCO2 46.2 H (35-45) POC ABG pO2 111 H (80-105) Sodium (137-145) mmol/L Potassium (3.6-5.0) mmol/L Chloride (98-107) mmol/L Carbon Dioxide (22-30) mmol/L BUN (9-20) mg/dL Creatinine (0.8-1.5) mg/dL Glucose (75-100) mg/dL POC Glucose (70-105) Lactic Acid (0.7-2.0) mmol/L Calcium (8.4-10.2) mg/dL Phosphorus (2.5-4.5) mg/dL AST (5-40) units/L ALT (7-56) units/L Alkaline Phosphatase (35-129) units/L Total Protein (6.3-8.2) g/dL Albumin (3.9-5) g/dL Assessment and Plan Assessment: 1) Sepsis: NOT Present on admission, manifested by fever, tachycardia, hypotension, leukocytosis. Etiology unclear - most likely necrotic malignancy ? abscess +/- UTI +/- LLL pneumonia Blood cx 05/15 neg, 05/20 neg, 05/26 ngtd 2) Complicated UTI: repeat UA 05/21 28 wbc, trace LE. 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 Enlarged pelvic lymph nodes, bilateral hydronephrosis. -S/p 05/14/18 left and right nephrostomy tube placements and mass biopsy -S/p 05/18/2018 cystoscopy with right great toe pyelogram found to have a bladder mass and prostate mass -S/p 05/26/18 diverting colostomy 4) LLL pneumonia 5) MARYLOU 6) Weight loss Plan: -follow-up repeat blood cultures, urine culture -obtain sputum culture -obtain procalcitonin, C-reactive protein (CRP) -stop zosyn and levaquin -start cefepime, flagyl and zyvox until MRSA is r/o Overall prognosis guarded Thank you for your consultation, will follow up with you. Sugey Garcia MD Infectious Diseases Specialist [facility] ([facility] M [phone] O [phone]
--- NOTE | 2018-05-27 08:46 | Progress Note ---
Assessment and Plan Assessment and plan: The patient is a 52 YO AAM with medical history significant for Uncontrolled HTN who came to the ER for evaluation of bilateral leg swelling, SOB and no urine output. He had abdominal pain, bilateral leg swelling, stopped making urine. Currently the patient has had a weight loss of over 50 pounds in the last 3 months. He was not taking any meds on a regular basis and has not seen a physician except ER visit last year. He underwent a biopsy with placement of bilateral nephrostomy tubes. 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 Acute respiratory failure. Intubated yesterday. Pulmonology following Sepsis. Now on Cefepime, Zyvox, flagyl. He was evaluated by ID Physician Bowel obstruction s/p surgery 05/26 POD#1 had exploratory laparotomy, revealed matted abdominal organs, pus. Eenterostomy tube decompression,loop colostomy and large triple lumen sump drainage of pelvis was done 05/26/[address] Keita /Pelvic mass Large pelvic mass between bladder and rectum with large lymph nodes, malignant. Consulted Urology to evaluate, s/p cystoscopy with prostate biopsy Differentiated carcinoma with squamous differentiation on pathology but unsure of exact primary /Acute kidney injury due to pelvic mass New diagnosis, No history of renal disease Nephrology following. Ultrasound Kidneys showed bilat hydronephrosis CT Abd shows Pelvic mass with multiple large lymph nodes Had bilateral nephrostomy tubes placed 05/14/[address] Freeman. Creatinine worse. Discussed with Nephrology. To start dialysis /Acute DVT right femoral vein. No anticoagulation for now because of bilateral nephrostomy tubes, now major abdominal surgery Reassesed with repeat venous doppler and showed no DVT propagation /Hypertensive urgency, Now resolved. \ Sinus tachycardia improved cardiology following Was OK to use contrast for CT Angio as per Nephrology CT Angio chest negative for Pulm embolism /Hyperkalemia, Not resolved after multiple treatment attempts with calcium iv, Insulin Discussed with Nephrology To start dialysis /Hypernatremia, /Metabolic acidosis due to MARYLOU, resolved with iv fluid /ACUTE BLOOD LOSS ANEMIA Monitor. /Fever, Obtained blood cultures /Moderate to severe protein calorie malnutrition - continue TPN Full code status Discussed with Dr. Valentin. He states patient not accepted at [facility]. I discussed with Dr. Keita, surgeon. he recommends colonoscopy by GI then, he, Dr. Keita will do diverting colostomy. I then discussed with Dr. Cunningham and he states will do flex sigmoidoscopy. I later discussed this with patient and sister at bedside, in presence of Nurse , Kita and Registered Nurse Post Partum on 05/24/18 Flexible sigmoidoscopy done 05/25 History Interval history: Patient had major abdominal surgery yesterday,intubated Fever Hospitalist Physical - Physical exam Narrative exam: GEN:Not in acute distress, lying in bed, very ill looking,intubated HEENT: Normocephalic, atraumatic, Neck: supple, No JVD Lungs: Clear to auscultaion bilaterally, no crackles Heart:S1 and S2 reg, no murmurs, rubs or gallop Abd:soft, mild tender, surgical wound covered with dressing, ostomy,surgical drain, bilat nephrostomy tubes Ext: No edema, clubbing or cyanosis Neuro: Awake, alert, intubated, not sedated - Constitutional Vitals: Temp Pulse Resp BP Pulse Ox 97.3 F L 105 H 26 H 118/73 95 05/27/18 08:00 05/27/18 08:15 05/27/18 08:15 05/27/18 08:15 05/27/18 08:15 General appearance: Present: cachectic Results - Labs CBC & Chem 7: 05/27/18 05:15 05/27/18 10:22 Labs: Laboratory Last Values WBC 24.9 K/mm3 (4.5-11.0) H 05/27/18 05:15 RBC 2.86 M/mm3 (3.65-5.03) L 05/27/18 05:15 Hgb 8.1 gm/dl (11.8-15.2) L 05/27/18 05:15 Hct 25.9 % (35.5-45.6) L 05/27/18 05:15 MCV 91 fl (84-94) 05/27/18 05:15 MCH 29 pg (28-32) 05/27/18 05:15 MCHC 32 % (32-34) 05/27/18 05:15 RDW 15.5 % (13.2-15.2) H 05/27/18 05:15 Plt Count 380 K/mm3 (140-440) 05/27/18 05:15 Lymph % (Auto) 10.1 % (13.4-35.0) L 05/19/18 05:33 [place] % (Auto) 4.6 % (0.0-7.3) 05/19/18 05:33 Eos % (Auto) 0.0 % (0.0-4.3) 05/19/18 05:33 Baso % (Auto) 0.1 % (0.0-1.8) 05/19/18 05:33 Lymph # 1.1 K/mm3 (1.2-5.4) L 05/19/18 05:33 [place] # 0.5 K/mm3 (0.0-0.8) 05/19/18 05:33 Eos # 0.0 K/mm3 (0.0-0.4) 05/19/18 05:33 Baso # 0.0 K/mm3 (0.0-0.1) 05/19/18 05:33 Add Manual Diff Complete 05/26/18 19:17 Total Counted 100 05/26/18 19:17 Seg Neutrophils % Bullet Maker 05/26/18 19:17 Seg Neuts % (Manual) 94.0 % (40.0-70.0) H 05/26/18 19:17 Band Neutrophils % 0 % 05/26/18 19:17 Lymphocytes % (Manual) 3.0 % (13.4-35.0) L 05/26/18 19:17 Reactive Lymphs % (Man) 0 % 05/26/18 19:17 Monocytes % (Manual) 2.0 % (0.0-7.3) 05/26/18 19:17 Eosinophils % (Manual) 1.0 % (0.0-4.3) 05/26/18 19:17 Basophils % (Manual) 0 % (0.0-1.8) 05/26/18 19:17 Metamyelocytes % 0 % 05/26/18 19:17 Myelocytes % 0 % 05/26/18 19:17 Promyelocytes % 0 % 05/26/18 19:17 Blast Cells % 0 % 05/26/18 19:17 Nucleated RBC % Not Reportable 05/26/18 19:17 Seg Neutrophils # 9.0 K/mm3 (1.8-7.7) H 05/19/18 05:33 Seg Neutrophils # Man 20.4 K/mm3 (1.8-7.7) H 05/26/18 19:17 Band Neutrophils # 0.0 K/mm3 05/26/18 19:17 Lymphocytes # (Manual) 0.7 K/mm3 (1.2-5.4) L 05/26/18 19:17 Abs React Lymphs (Man) 0.0 K/mm3 05/26/18 19:17 Monocytes # (Manual) 0.4 K/mm3 (0.0-0.8) 05/26/18 19:17 Eosinophils # (Manual) 0.2 K/mm3 (0.0-0.4) 05/26/18 19:17 Basophils # (Manual) 0.0 K/mm3 (0.0-0.1) 05/26/18 19:17 Metamyelocytes # 0.0 K/mm3 05/26/18 19:17 Myelocytes # 0.0 K/mm3 05/26/18 19:17 Promyelocytes # 0.0 K/mm3 05/26/18 19:17 Blast Cells # 0.0 K/mm3 05/26/18 19:17 WBC Morphology Not Reportable 05/26/18 19:17 Hypersegmented Neuts Not Reportable 05/26/18 19:17 Hyposegmented Neuts Not Reportable 05/26/18 19:17 Hypogranular Neuts Not Reportable 05/26/18 19:17 Smudge Cells Not Reportable 05/26/18 19:17 Toxic Granulation Not Reportable 05/26/18 19:17 Toxic Vacuolation Not Reportable 05/26/18 19:17 Dohle Bodies Not Reportable 05/26/18 19:17 Pelger-Huet Anomaly Not Reportable 05/26/18 19:17 Mahesh Rods Not Reportable 05/26/18 19:17 Platelet Estimate Not Reportable 05/26/18 19:17 Clumped Platelets Not Reportable 05/26/18 19:17 Plt Clumps, EDTA Not Reportable 05/26/18 19:17 Large Platelets Not Reportable 05/26/18 19:17 Giant Platelets Not Reportable 05/26/18 19:17 Platelet Satelliting Not Reportable 05/26/18 19:17 Plt Morphology Comment Not Reportable 05/26/18 19:17 RBC Morphology Normal 05/26/18 19:17 Dimorphic RBCs Not Reportable 05/26/18 19:17 Polychromasia Not Reportable 05/26/18 19:17 Hypochromasia Not Reportable 05/26/18 19:17 Poikilocytosis Not Reportable 05/26/18 19:17 Anisocytosis Not Reportable 05/26/18 19:17 Microcytosis Not Reportable 05/26/18 19:17 Macrocytosis Not Reportable 05/26/18 19:17 Spherocytes Not Reportable 05/26/18 19:17 Pappenheimer Bodies Not Reportable 05/26/18 19:17 Sickle Cells Not Reportable 05/26/18 19:17 Target Cells Not Reportable 05/26/18 19:17 Tear Drop Cells Not Reportable 05/26/18 19:17 Ovalocytes Not Reportable 05/26/18 19:17 Helmet Cells Not Reportable 05/26/18 19:17 Hernandez-[place] Bodies Not Reportable 05/26/18 19:17 [place] Rings Not Reportable 05/26/18 19:17 [place] Cells Not Reportable 05/26/18 19:17 Bite Cells Not Reportable 05/26/18 19:17 Crenated Cell Not Reportable 05/26/18 19:17 Elliptocytes Not Reportable 05/26/18 19:17 Acanthocytes (Spur) Not Reportable 05/26/18 19:17 Rouleaux Not Reportable 05/26/18 19:17 Hemoglobin C Crystals Not Reportable 05/26/18 19:17 Schistocytes Not Reportable 05/26/18 19:17 Malaria parasites Not Reportable 05/26/18 19:17 Mk Bodies Not Reportable 05/26/18 19:17 Hem Pathologist Commnt No 05/26/18 19:17 PT 18.3 Sec. (12.2-14.9) H 05/23/18 09:03 INR 1.43 (0.87-1.13) H 05/23/18 09:03 APTT 40.0 Sec. (24.2-36.6) H 05/23/18 09:03 POC ABG pH 7.265 (7.35-7.45) L 05/27/18 06:11 POC ABG pCO2 46.2 (35-45) H 05/27/18 06:11 POC ABG pO2 111 (80-105) H 05/27/18 06:11 POC ABG HCO3 21.0 05/27/18 06:11 POC ABG Total CO2 22 05/27/18 06:11 POC ABG O2 Sat 98 05/27/18 06:11 POC ABG Base Excess -6 05/27/18 06:11 FiO2 50 % 05/27/18 06:11 Sodium 149 mmol/L (137-145) H 05/27/18 05:15 Potassium 6.9 mmol/L (3.6-5.0) H* 05/27/18 05:15 Chloride 113.5 mmol/L (98-107) H 05/27/18 05:15 Carbon Dioxide 22 mmol/L (22-30) 05/27/18 05:15 Anion Gap 20 mmol/L 05/27/18 05:15 BUN 89 mg/dL (9-20) H 05/27/18 05:15 Creatinine 5.2 mg/dL (0.8-1.5) H 05/27/18 05:15 Estimated GFR 14 ml/min 05/27/18 05:15 BUN/Creatinine Ratio 17 % 05/27/18 05:15 Glucose 118 mg/dL (75-100) H 05/27/18 05:15 POC Glucose 91 (70-105) 05/26/18 22:06 Hemoglobin A1c 5.7 % (4-6) 05/14/18 05:05 Lactic Acid 3.80 mmol/L (0.7-2.0) H* 05/26/18 11:00 Calcium 7.0 mg/dL (8.4-10.2) L 05/27/18 05:15 Phosphorus 9.70 mg/dL (2.5-4.5) H D 05/27/18 05:15 Magnesium 2.20 mg/dL (1.7-2.3) 05/27/18 05:15 Iron 24 ug/dL (49-181) L 05/16/18 07:02 TIBC 160 mcg/dL (250-450) L 05/16/18 07:02 Ferritin 325.8 ng/mL (13.0-400.0) 05/16/18 07:02 Total Bilirubin 1.20 mg/dL (0.1-1.2) 05/27/18 05:15 AST 876 units/L (5-40) H 05/27/18 05:15 ALT 408 units/L (7-56) H 05/27/18 05:15 Alkaline Phosphatase 83 units/L (35-129) 05/27/18 05:15 Total Creatine Kinase 156 units/L (55-170) 05/25/18 22:46 CK-MB (CK-2) 2.3 ng/mL (0.0-4.0) 05/25/18 22:46 CK-MB (CK-2) Rel Index 1.4 (0-4) 05/25/18 22:46 C-Reactive Protein 34.50 mg/dL (0.00-1.30) H 05/25/18 19:50 Total Protein 5.2 g/dL (6.3-8.2) L 05/27/18 05:15 Albumin 1.5 g/dL (3.9-5) L 05/27/18 05:15 Albumin/Globulin Ratio 0.4 % 05/27/18 05:15 Prostate Specific Ag 0.96 ng/mL (0.00-4.00) 05/14/18 13:29 Vitamin B12 359.2 pg/mL (211-911) 05/16/18 07:02 Folate 5.39 ng/mL (7.3-26.0) L 05/16/18 07:02 TSH 3.180 mlU/mL (0.270-4.200) 05/14/18 05:05 PTH Intact 65.37 pg/mL (15-65) H 05/14/18 05:05 Urine Color Maria [place] Rosario (Yellow) 05/21/18 15:30 Urine Turbidity Cloudy (Clear) 05/21/18 15:30 Urine pH 5.0 (5.0-7.0) 05/21/18 15:30 Ur Specific [place] 1.019 (1.003-1.030) 05/21/18 15:30 Urine Protein >500 mg/dL (Negative) 05/21/18 15:30 Urine Glucose (UA) Neg mg/dL (Negative) 05/21/18 15:30 Urine Ketones Neg mg/dL (Negative) 05/21/18 15:30 Urine Blood Mod (Negative) 05/21/18 15:30 Urine Nitrite Neg (Negative) 05/21/18 15:30 Urine Bilirubin Neg (Negative) 05/21/18 15:30 Urine Urobilinogen 4.0 mg/dL (<2.0) 05/21/18 15:30 Ur Leukocyte Esterase Tr (Negative) 05/21/18 15:30 Urine WBC (Auto) 28.0 /HPF (0.0-6.0) H 05/21/18 15:30 Urine RBC (Auto) 33.0 /HPF (0.0-6.0) 05/21/18 15:30 U Epithel Cells (Auto) 2.0 /HPF (0-13.0) 05/21/18 15:30 Urine Bacteria (Auto) 1+ /HPF (Negative) 05/21/18 15:30 Urine WBC Clumps Few /HPF 05/13/18 19:39 Urine Mucus 1+ /HPF 05/21/18 15:30 Urine Yeast (Budding) 2+ /HPF 05/21/18 15:30 Urine Creatinine 66.0 mg/dL (0.1-20.0) H 05/13/18 19:39 Urine Sodium 60 mmol/L 05/13/18 19:39 Urine Potassium 8.69 mmol/L 05/13/18 19:39 Urine Chloride 27.8 mmolL (110-250) L 05/13/18 19:39 Urine Total Protein 24 mg/dL (5-11.8) H 05/13/18 19:39 Vancomycin Trough 25.1 ug/mL (5.0-20.0) H 05/25/18 22:46 Random Vancomycin 34.3 ug/mL (0-40.0) 05/26/18 11:01 Urine Opiates Screen Presumptive negative 05/13/18 19:39 Urine Methadone Screen Presumptive negative 05/13/18 19:39 Ur Barbiturates Screen Presumptive negative 05/13/18 19:39 Ur Phencyclidine Scrn Presumptive negative 05/13/18 19:39 Ur Amphetamines Screen Presumptive negative 05/13/18 19:39 U Benzodiazepines Scrn Presumptive negative 05/13/18 19:39 Urine Cocaine Screen Presumptive negative 05/13/18 19:39 U Marijuana (THC) Screen Presumptive negative 05/13/18 19:39 Drugs of Abuse Note Disclamer 05/13/18 19:39 ZEUS Screen Negative (Negative) 05/14/18 05:05 Proteinase 3 (PR3) Ab <1.0 AI (<1.0) 05/14/18 05:05 Myeloperoxidase Ab <1.0 AI (<1.0) 05/14/18 05:05 Complement C3 147 mg/dL (82-185) 05/14/18 05:05 Complement C4 45 mg/dL (15-53) 05/14/18 05:05 Blood Type O POSITIVE 05/22/18 11:23 Antibody Screen Negative 05/22/18 11:23 Crossmatch See Detail 05/22/18 11:23
[2018-05-27] MEDS ORDERED: HumuLIN R IV ONE (09:00)
[2018-05-27] MEDS: LOPRESSOR PO SCH (10:00)
[2018-05-27] MEDS ORDERED: LEVAQUIN 500MG/100ML 500 MG/100 ML BAG IV SCH (10:00)
[2018-05-27] MEDS: NORVASC PO SCH (10:00)
--- NOTE | 2018-05-27 10:25 | Progress Note ---
Assessment and Plan 1. Acute kidney injury: Recurrent Acute kidney injury. Initial MARYLOU in the setting of bilateral hydronephrosis secondary to pelvic mass , now s/p bilateral nephrostomy. Renal function continue to get worse and associated with persistent hyperkalemia. Patient require urgent hemodialysis for the above reasons. D/w with patient and her sister and explained the indications, risks and benefits involved in hemodialysis. Agreed to proceed with hemodialysis. D/w Vascular to place temp dialysis catheter. HD orders placed. Renal prognosis is guarded. 2. Electrolytes: Hypernatremia, Hypotonic IV fluids. Hyperkalemia, received multiple rounds of Insulin-Dextrose. HD today. 3. Bowel obstruction: S/p ostomy. 4. Bilateral hydronephrosis: S/p bilateral nephrostomy. S/p Cysto and drainage of abscess. 5. Respiratory failure: On vent. 6. Hypotension: BP is improving. 7. Anemia: Iron and Folate supplement. 8. Pelvic mass: Squamous cell Ca. Subjective Date of service: 05/27/18 Principal diagnosis: squamous cell ca - prostate bx - prelim report Interval history: Patient was seen and examined at the bedside. Objective - Vital Signs Vital signs: Vital Signs - 12hr 05/26/18 05/26/18 05/26/18 22:30 22:45 23:00 Temperature Pulse Rate 119 H 120 H 121 H Pulse Rate [ From Monitor] Respiratory 22 20 21 Rate Blood Pressure 99/65 122/74 109/61 O2 Sat by Pulse 95 94 Oximetry 05/26/18 05/26/18 05/26/18 23:15 23:22 23:30 Temperature Pulse Rate 122 H 121 H 121 H Pulse Rate [ From Monitor] Respiratory 21 22 Rate Blood Pressure 99/62 99/62 103/63 O2 Sat by Pulse 94 Oximetry 05/26/18 05/26/18 05/27/18 23:45 23:56 00:00 Temperature 97.8 F Pulse Rate 121 H 119 H 119 H Pulse Rate [ From Monitor] Respiratory 20 21 Rate Blood Pressure 106/64 98/53 103/62 O2 Sat by Pulse 95 96 95 Oximetry 05/27/18 05/27/18 05/27/18 00:15 00:30 00:45 Temperature Pulse Rate 116 H 113 H 109 H Pulse Rate [ From Monitor] Respiratory 20 20 21 Rate Blood Pressure 101/62 97/65 104/65 O2 Sat by Pulse 93 93 93 Oximetry 05/27/18 05/27/18 05/27/18 01:00 01:15 01:30 Temperature Pulse Rate 109 H 107 H 106 H Pulse Rate [ From Monitor] Respiratory 21 22 22 Rate Blood Pressure 104/65 95/64 94/62 O2 Sat by Pulse 96 96 94 Oximetry 05/27/18 05/27/18 05/27/18 01:45 02:00 02:15 Temperature Pulse Rate 105 H 105 H 105 H Pulse Rate [ From Monitor] Respiratory 22 22 20 Rate Blood Pressure 94/63 102/65 100/67 O2 Sat by Pulse 95 96 97 Oximetry 05/27/18 05/27/18 05/27/18 02:30 02:45 03:00 Temperature Pulse Rate 105 H 106 H 104 H Pulse Rate [ From Monitor] Respiratory 24 24 23 Rate Blood Pressure 91/58 101/70 106/79 O2 Sat by Pulse 98 97 98 Oximetry 05/27/18 05/27/18 05/27/18 03:15 03:30 03:45 Temperature Pulse Rate 104 H 104 H 106 H Pulse Rate [ From Monitor] Respiratory 20 23 22 Rate Blood Pressure 105/74 107/69 106/74 O2 Sat by Pulse 98 98 Oximetry 05/27/18 05/27/18 05/27/18 03:47 04:00 04:15 Temperature 97.6 F Pulse Rate 106 H 102 H 104 H Pulse Rate [ From Monitor] Respiratory 22 22 Rate Blood Pressure 105/61 105/68 103/69 O2 Sat by Pulse 98 96 Oximetry 05/27/18 05/27/18 05/27/18 04:30 04:45 05:00 Temperature Pulse Rate 107 H 108 H 108 H Pulse Rate [ From Monitor] Respiratory 22 22 22 Rate Blood Pressure 104/74 111/81 111/81 O2 Sat by Pulse 96 98 Oximetry 05/27/18 05/27/18 05/27/18 05:15 05:30 05:34 Temperature Pulse Rate 108 H 109 H 108 H Pulse Rate [ From Monitor] Respiratory 25 H 24 Rate Blood Pressure 115/76 113/80 113/80 O2 Sat by Pulse 95 96 Oximetry 05/27/18 05/27/18 05/27/18 05:45 06:00 06:15 Temperature Pulse Rate 112 H 110 H 107 H Pulse Rate [ From Monitor] Respiratory 23 25 H 28 H Rate Blood Pressure 114/73 125/80 121/84 O2 Sat by Pulse 97 96 96 Oximetry 05/27/18 05/27/18 05/27/18 06:30 06:45 07:00 Temperature Pulse Rate 106 H 105 H 106 H Pulse Rate [ From Monitor] Respiratory 22 21 21 Rate Blood Pressure 115/78 113/77 113/76 O2 Sat by Pulse 98 97 100 Oximetry 05/27/18 05/27/18 05/27/18 07:15 07:30 07:45 Temperature Pulse Rate 103 H 101 H 103 H Pulse Rate [ From Monitor] Respiratory 22 20 20 Rate Blood Pressure 114/77 107/74 109/73 O2 Sat by Pulse 99 99 96 Oximetry 05/27/18 05/27/18 05/27/18 07:55 08:00 08:15 Temperature 97.3 F L Pulse Rate 102 H 105 H 105 H Pulse Rate [ 105 H From Monitor] Respiratory 22 26 H Rate Blood Pressure 110/62 112/76 118/73 O2 Sat by Pulse 98 96 95 Oximetry 05/27/18 05/27/18 05/27/18 08:30 08:45 09:00 Temperature Pulse Rate 103 H 106 H Pulse Rate [ From Monitor] Respiratory 23 24 Rate Blood Pressure 114/79 115/79 116/78 O2 Sat by Pulse 97 96 97 Oximetry 05/27/18 05/27/18 05/27/18 09:15 09:30 09:45 Temperature Pulse Rate 103 H 102 H 104 H Pulse Rate [ From Monitor] Respiratory 21 22 24 Rate Blood Pressure 114/80 116/76 119/78 O2 Sat by Pulse 100 97 Oximetry - General Appearance General appearance: well-developed, appears stated age, intubated, other (on vent, FiO2 50%) EENT: ATNC, PERRL, hearing intact Neck: supple Respiratory: Present: Clear to Ascultation Cardiology: regular, tachycardia, S1S2 Gastrointestinal: tenderness, distended, other (ostomy noted, bilateral nephrostomy noted) Integumentary: no rash, warm and dry Neurologic: other (able to move extremities) Musculoskeletal: other (no edema) - Lab 05/27/18 05:15 05/27/18 10:22 Most recent lab results Calcium 7.0 mg/dL (8.4-10.2) L 05/27/18 05:15 Phosphorus 9.70 mg/dL (2.5-4.5) H D 05/27/18 05:15 Magnesium 2.20 mg/dL (1.7-2.3) 05/27/18 05:15 Urine Creatinine 66.0 mg/dL (0.1-20.0) H 05/13/18 19:39 Urine Sodium 60 mmol/L 05/13/18 19:39 Urine Total Protein 24 mg/dL (5-11.8) H 05/13/18 19:39
--- NOTE | 2018-05-27 10:25 | Progress Note ---
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 Hypertensive urgency, Sinus tachycardia with HR 160s CTA negative for PE Hyperkalemia Hypernatrmia Metabolic acidosis Acute blood loss anemia Moderate to severe protein calorie malnutrition - continue supplemental oxygen to keep sats > 90% - VAP bundle addressed - continue bronchodilators with pulmonary hygiene per RT - HD/UF for toxin and volume clearance - Begin daily SBTs - continue anti-infective's per ID recs (Cefepime, Zyvox, flagyl) - continue TPN for now (enteral nutrition once cleared by surgery) - Malignancy per heme-oncologist - continue mobility protocol for pressure ulcer prophylaxis - s/p surgery 05/26 (had ex-lap; matted abdominal organs, pus - Enterostomy tube decompression,loop colostomy and large triple lumen sump drainage of pelvis) - s/p bilateral nephrostomy tubes placed 05/14/[address] Freeman.(CTA negative for P.E.) - continue other care per attending / other consultants The high probability of a clinically significant, sudden or life threatening deterioration of the [respiratory,cardiac, urologic and renal] system(s) required my full and direct attention, intervention and personal management. The aggregate critical care time was [35] minutes without overlap. Time includes spent on; [x] Data Review and interpretation [x] Patient assessment and monitoring of vital signs [x] Documentation [x] Medication orders and management - Full code status Subjective Date of service: 05/27/18 Principal diagnosis: squamous cell ca - prostate bx - prelim report Interval history: s/p POD#1 for diverting colostomy. Remained intubated post operatively Patient is seen today for: Acute Hypoxemic Resp Failure; Sepsis Syndrome; Acute VTE; Prostate Cancer Seen and examined. vitals, labs, medications, chart reviewed.; 24hour events reviewed; nursing and respiratory care staff consulted; no adverse overnight events reported to me; resting peacefully on MVS: clean urine seen in nephrostomy bags; denies acute chest pains or increased SOB; Objective - Exam Narrative Exam: General appearance: Sedated, ETT to MVS No patietn ventilator dyssynchrony Eyes: anicteric sclerae, moist conjunctivae; no lid-lag; PERRLA HENT: Atraumatic; oropharynx +NGT. Normal external ears. +temporal wasting Neck: Trachea midline; supple, no thyromegaly or lymphadenopathy Lungs: Decreased AE bilaterally, Coarse BS CV: RRR, no murmurs Abdomen: Soft, +diverting colostomy +multiple drains and amy PC nephros Extremities: No peripheral edema or extremity lymphadenopathy Skin: Normal temperature, turgor and texture; no rash, ulcers or subcutaneous nodules Psych: normal affect, anxious Neuro: Non focal, Vital Signs - 12hr 05/26/18 05/26/18 05/26/18 22:30 22:45 23:00 Temperature Pulse Rate 119 H 120 H 121 H Pulse Rate [ From Monitor] Respiratory 22 20 21 Rate Blood Pressure 99/65 122/74 109/61 O2 Sat by Pulse 95 94 Oximetry 05/26/18 05/26/18 05/26/18 23:15 23:22 23:30 Temperature Pulse Rate 122 H 121 H 121 H Pulse Rate [ From Monitor] Respiratory 21 22 Rate Blood Pressure 99/62 99/62 103/63 O2 Sat by Pulse 94 Oximetry 05/26/18 05/26/18 05/27/18 23:45 23:56 00:00 Temperature 97.8 F Pulse Rate 121 H 119 H 119 H Pulse Rate [ From Monitor] Respiratory 20 21 Rate Blood Pressure 106/64 98/53 103/62 O2 Sat by Pulse 95 96 95 Oximetry 05/27/18 05/27/18 05/27/18 00:15 00:30 00:45 Temperature Pulse Rate 116 H 113 H 109 H Pulse Rate [ From Monitor] Respiratory 20 20 21 Rate Blood Pressure 101/62 97/65 104/65 O2 Sat by Pulse 93 93 93 Oximetry 05/27/18 05/27/18 05/27/18 01:00 01:15 01:30 Temperature Pulse Rate 109 H 107 H 106 H Pulse Rate [ From Monitor] Respiratory 21 22 22 Rate Blood Pressure 104/65 95/64 94/62 O2 Sat by Pulse 96 96 94 Oximetry 05/27/18 05/27/18 05/27/18 01:45 02:00 02:15 Temperature Pulse Rate 105 H 105 H 105 H Pulse Rate [ From Monitor] Respiratory 22 22 20 Rate Blood Pressure 94/63 102/65 100/67 O2 Sat by Pulse 95 96 97 Oximetry 05/27/18 05/27/18 05/27/18 02:30 02:45 03:00 Temperature Pulse Rate 105 H 106 H 104 H Pulse Rate [ From Monitor] Respiratory 24 24 23 Rate Blood Pressure 91/58 101/70 106/79 O2 Sat by Pulse 98 97 98 Oximetry 05/27/18 05/27/18 05/27/18 03:15 03:30 03:45 Temperature Pulse Rate 104 H 104 H 106 H Pulse Rate [ From Monitor] Respiratory 20 23 22 Rate Blood Pressure 105/74 107/69 106/74 O2 Sat by Pulse 98 98 Oximetry 05/27/18 05/27/18 05/27/18 03:47 04:00 04:15 Temperature 97.6 F Pulse Rate 106 H 102 H 104 H Pulse Rate [ From Monitor] Respiratory 22 22 Rate Blood Pressure 105/61 105/68 103/69 O2 Sat by Pulse 98 96 Oximetry 05/27/18 05/27/18 05/27/18 04:30 04:45 05:00 Temperature Pulse Rate 107 H 108 H 108 H Pulse Rate [ From Monitor] Respiratory 22 22 22 Rate Blood Pressure 104/74 111/81 111/81 O2 Sat by Pulse 96 98 Oximetry 05/27/18 05/27/18 05/27/18 05:15 05:30 05:34 Temperature Pulse Rate 108 H 109 H 108 H Pulse Rate [ From Monitor] Respiratory 25 H 24 Rate Blood Pressure 115/76 113/80 113/80 O2 Sat by Pulse 95 96 Oximetry 05/27/18 05/27/18 05/27/18 05:45 06:00 06:15 Temperature Pulse Rate 112 H 110 H 107 H Pulse Rate [ From Monitor] Respiratory 23 25 H 28 H Rate Blood Pressure 114/73 125/80 121/84 O2 Sat by Pulse 97 96 96 Oximetry 05/27/18 05/27/18 05/27/18 06:30 06:45 07:00 Temperature Pulse Rate 106 H 105 H 106 H Pulse Rate [ From Monitor] Respiratory 22 21 21 Rate Blood Pressure 115/78 113/77 113/76 O2 Sat by Pulse 98 97 100 Oximetry 05/27/18 05/27/18 05/27/18 07:15 07:30 07:45 Temperature Pulse Rate 103 H 101 H 103 H Pulse Rate [ From Monitor] Respiratory 22 20 20 Rate Blood Pressure 114/77 107/74 109/73 O2 Sat by Pulse 99 99 96 Oximetry 05/27/18 05/27/18 05/27/18 07:55 08:00 08:15 Temperature 97.3 F L Pulse Rate 102 H 105 H 105 H Pulse Rate [ 105 H From Monitor] Respiratory 22 26 H Rate Blood Pressure 110/62 112/76 118/73 O2 Sat by Pulse 98 96 95 Oximetry 05/27/18 05/27/18 05/27/18 08:30 08:45 09:00 Temperature Pulse Rate 103 H 106 H Pulse Rate [ From Monitor] Respiratory 23 24 Rate Blood Pressure 114/79 115/79 116/78 O2 Sat by Pulse 97 96 97 Oximetry 05/27/18 05/27/18 05/27/18 09:15 09:30 09:45 Temperature Pulse Rate 103 H 102 H 104 H Pulse Rate [ From Monitor] Respiratory 21 22 24 Rate Blood Pressure 114/80 116/76 119/78 O2 Sat by Pulse 100 97 Oximetry CBC and BMP: 05/31/18 04:50 05/31/18 04:50 ABG, PT/INR, D-dimer: ABG POC ABG pH 7.265 (7.35-7.45) L 05/27/18 06:11 POC ABG pCO2 46.2 (35-45) H 05/27/18 06:11 POC ABG pO2 111 (80-105) H 05/27/18 06:11 POC ABG HCO3 21.0 05/27/18 06:11 POC ABG Total CO2 22 05/27/18 06:11 POC ABG O2 Sat 98 05/27/18 06:11 PT/INR, D-dimer PT 18.3 Sec. (12.2-14.9) H 05/23/18 09:03 INR 1.43 (0.87-1.13) H 05/23/18 09:03 Abnormal lab findings: Abnormal Labs 05/13/18 05/13/18 05/13/18 04:27 04:27 19:39 WBC RBC 3.13 L Hgb 9.4 L Hct 26.8 L MCHC 35 H RDW Lymph % (Auto) [place] % (Auto) 9.6 H Lymph # [place] # Seg Neutrophils % Seg Neuts % (Manual) Lymphocytes % (Manual) Seg Neutrophils # Seg Neutrophils # Man Lymphocytes # (Manual) PT INR APTT POC ABG pH POC ABG pCO2 POC ABG pO2 Sodium 132 L Potassium 5.5 H Chloride 94.1 L Carbon Dioxide 19 L BUN 72 H Creatinine 14.4 H Glucose POC Glucose Lactic Acid Calcium Phosphorus Magnesium Iron TIBC AST ALT Alkaline Phosphatase Total Creatine Kinase C-Reactive Protein Total Protein Albumin 2.8 L Folate PTH Intact Urine WBC (Auto) Urine Creatinine 66.0 H Urine Chloride 27.8 L Urine Total Protein 24 H Vancomycin Trough Crossmatch 05/13/18 05/14/18 05/14/18 20:00 05:05 05:05 WBC RBC Hgb Hct MCHC RDW Lymph % (Auto) [place] % (Auto) Lymph # [place] # Seg Neutrophils % Seg Neuts % (Manual) Lymphocytes % (Manual) Seg Neutrophils # Seg Neutrophils # Man Lymphocytes # (Manual) PT INR APTT POC ABG pH POC ABG pCO2 POC ABG pO2 Sodium 132 L 131 L Potassium 5.2 H 5.8 H Chloride 93.0 L 95.6 L Carbon Dioxide 19 L 20 L BUN 74 H 81 H Creatinine 15.0 H 16.6 H Glucose 134 H 127 H POC Glucose Lactic Acid Calcium 8.2 L 7.9 L Phosphorus 6.30 H Magnesium Iron TIBC AST ALT Alkaline Phosphatase Total Creatine Kinase 236 H C-Reactive Protein Total Protein Albumin Folate PTH Intact 65.37 H Urine WBC (Auto) Urine Creatinine Urine Chloride Urine Total Protein Vancomycin Trough Crossmatch 05/14/18 05/14/18 05/14/18 09:28 10:56 13:29 WBC RBC Hgb Hct MCHC RDW Lymph % (Auto) [place] % (Auto) Lymph # [place] # Seg Neutrophils % Seg Neuts % (Manual) Lymphocytes % (Manual) Seg Neutrophils # Seg Neutrophils # Man Lymphocytes # (Manual) PT INR APTT 38.2 H POC ABG pH POC ABG pCO2 POC ABG pO2 Sodium Potassium Chloride Carbon Dioxide BUN Creatinine Glucose POC Glucose 127 H 126 H Lactic Acid Calcium Phosphorus Magnesium Iron TIBC AST ALT Alkaline Phosphatase Total Creatine Kinase C-Reactive Protein Total Protein Albumin Folate PTH Intact Urine WBC (Auto) Urine Creatinine Urine Chloride Urine Total Protein Vancomycin Trough Crossmatch 05/15/18 05/15/18 05/16/18 08:06 08:06 07:02 WBC RBC 2.84 L 2.74 L Hgb 8.5 L 8.5 L Hct 24.2 L 23.5 L MCHC 35 H 36 H RDW Lymph % (Auto) [place] % (Auto) 10.4 H 11.0 H Lymph # 1.1 L [place] # 0.9 H Seg Neutrophils % 72.6 H Seg Neuts % (Manual) Lymphocytes % (Manual) Seg Neutrophils # Seg Neutrophils # Man Lymphocytes # (Manual) PT INR APTT POC ABG pH POC ABG pCO2 POC ABG pO2 Sodium Potassium Chloride Carbon Dioxide 19 L BUN 66 H Creatinine 12.0 H Glucose 115 H POC Glucose Lactic Acid Calcium 8.1 L Phosphorus Magnesium Iron TIBC AST ALT Alkaline Phosphatase Total Creatine Kinase C-Reactive Protein Total Protein Albumin Folate PTH Intact Urine WBC (Auto) Urine Creatinine Urine Chloride Urine Total Protein Vancomycin Trough Crossmatch 05/16/18 05/16/18 05/17/18 07:02 07:02 05:08 WBC RBC 2.78 L Hgb 8.2 L Hct 23.9 L MCHC RDW Lymph % (Auto) [place] % (Auto) 13.9 H Lymph # [place] # 0.9 H Seg Neutrophils % Seg Neuts % (Manual) Lymphocytes % (Manual) Seg Neutrophils # Seg Neutrophils # Man Lymphocytes # (Manual) PT INR APTT POC ABG pH POC ABG pCO2 POC ABG pO2 Sodium Potassium Chloride Carbon Dioxide BUN 28 H Creatinine 2.4 H D Glucose POC Glucose Lactic Acid Calcium 8.3 L Phosphorus Magnesium 1.50 L Iron 24 L TIBC 160 L AST ALT Alkaline Phosphatase Total Creatine Kinase C-Reactive Protein Total Protein Albumin Folate 5.39 L PTH Intact Urine WBC (Auto) Urine Creatinine Urine Chloride Urine Total Protein Vancomycin Trough Crossmatch 05/17/18 05/18/18 05/18/18 05:08 05:57 05:57 WBC RBC 2.79 L Hgb 8.3 L Hct 24.0 L MCHC 35 H RDW Lymph % (Auto) [place] % (Auto) 11.8 H Lymph # [place] # 0.9 H Seg Neutrophils % Seg Neuts % (Manual) Lymphocytes % (Manual) Seg Neutrophils # Seg Neutrophils # Man Lymphocytes # (Manual) PT INR APTT POC ABG pH POC ABG pCO2 POC ABG pO2 Sodium Potassium Chloride Carbon Dioxide BUN Creatinine Glucose POC Glucose Lactic Acid Calcium 7.7 L 8.0 L Phosphorus Magnesium 1.60 L Iron TIBC AST ALT Alkaline Phosphatase Total Creatine Kinase C-Reactive Protein Total Protein Albumin Folate PTH Intact Urine WBC (Auto) Urine Creatinine Urine Chloride Urine Total Protein Vancomycin Trough Crossmatch 05/19/18 05/19/18 05/20/18 05:33 05:33 05:38 WBC RBC 2.95 L Hgb 8.8 L Hct 25.8 L MCHC RDW Lymph % (Auto) 10.1 L [place] % (Auto) Lymph # 1.1 L [place] # Seg Neutrophils % 85.2 H Seg Neuts % (Manual) Lymphocytes % (Manual) Seg Neutrophils # 9.0 H Seg Neutrophils # Man Lymphocytes # (Manual) PT INR APTT POC ABG pH POC ABG pCO2 POC ABG pO2 Sodium 135 L Potassium Chloride Carbon Dioxide BUN Creatinine Glucose 132 H POC Glucose Lactic Acid Calcium 7.8 L 8.3 L Phosphorus Magnesium 1.40 L Iron TIBC AST ALT Alkaline Phosphatase Total Creatine Kinase C-Reactive Protein Total Protein Albumin Folate PTH Intact Urine WBC (Auto) Urine Creatinine Urine Chloride Urine Total Protein Vancomycin Trough Crossmatch 05/21/18 05/21/18 05/22/18 04:46 15:30 06:49 WBC 20.0 H RBC 2.70 L Hgb 7.8 L Hct 23.3 L MCHC RDW Lymph % (Auto) [place] % (Auto) Lymph # [place] # Seg Neutrophils % Seg Neuts % (Manual) 85.0 H Lymphocytes % (Manual) 4.0 L Seg Neutrophils # Seg Neutrophils # Man 17.0 H Lymphocytes # (Manual) 0.8 L PT INR APTT POC ABG pH POC ABG pCO2 POC ABG pO2 Sodium 135 L Potassium 3.5 L Chloride Carbon Dioxide 21 L BUN 22 H Creatinine Glucose POC Glucose Lactic Acid Calcium 8.1 L Phosphorus Magnesium Iron TIBC AST ALT Alkaline Phosphatase Total Creatine Kinase C-Reactive Protein Total Protein Albumin Folate PTH Intact Urine WBC (Auto) 28.0 H Urine Creatinine Urine Chloride Urine Total Protein Vancomycin Trough Crossmatch 05/22/18 05/22/18 05/23/18 06:49 11:23 09:03 WBC RBC Hgb Hct MCHC RDW Lymph % (Auto) [place] % (Auto) Lymph # [place] # Seg Neutrophils % Seg Neuts % (Manual) Lymphocytes % (Manual) Seg Neutrophils # Seg Neutrophils # Man Lymphocytes # (Manual) PT INR APTT POC ABG pH POC ABG pCO2 POC ABG pO2 Sodium 134 L Potassium 3.5 L Chloride Carbon Dioxide 21 L BUN 35 H 36 H Creatinine 1.7 H Glucose 107 H POC Glucose Lactic Acid Calcium 7.9 L Phosphorus Magnesium 2.50 H Iron TIBC AST ALT Alkaline Phosphatase Total Creatine Kinase C-Reactive Protein Total Protein Albumin Folate PTH Intact Urine WBC (Auto) Urine Creatinine Urine Chloride Urine Total Protein Vancomycin Trough Crossmatch See Detail 05/23/18 05/23/18 05/23/18 09:03 09:03 17:34 WBC 26.3 H RBC 3.57 L Hgb 10.4 L Hct 31.1 L D MCHC RDW Lymph % (Auto) [place] % (Auto) Lymph # [place] # Seg Neutrophils % Seg Neuts % (Manual) Lymphocytes % (Manual) Seg Neutrophils # Seg Neutrophils # Man Lymphocytes # (Manual) PT 18.3 H INR 1.43 H APTT 40.0 H POC ABG pH POC ABG pCO2 POC ABG pO2 Sodium Potassium Chloride Carbon Dioxide BUN Creatinine Glucose POC Glucose 108 H Lactic Acid Calcium Phosphorus Magnesium Iron TIBC AST ALT Alkaline Phosphatase Total Creatine Kinase C-Reactive Protein Total Protein Albumin Folate PTH Intact Urine WBC (Auto) Urine Creatinine Urine Chloride Urine Total Protein Vancomycin Trough Crossmatch 05/23/18 05/24/18 05/24/18 21:14 04:43 08:04 WBC RBC Hgb Hct MCHC RDW Lymph % (Auto) [place] % (Auto) Lymph # [place] # Seg Neutrophils % Seg Neuts % (Manual) Lymphocytes % (Manual) Seg Neutrophils # Seg Neutrophils # Man Lymphocytes # (Manual) PT INR APTT POC ABG pH POC ABG pCO2 POC ABG pO2 Sodium 146 H Potassium Chloride 108.6 H Carbon Dioxide BUN 33 H Creatinine Glucose 109 H POC Glucose 110 H 106 H Lactic Acid Calcium 8.3 L Phosphorus Magnesium 2.50 H Iron TIBC AST ALT Alkaline Phosphatase Total Creatine Kinase C-Reactive Protein Total Protein Albumin Folate PTH Intact Urine WBC (Auto) Urine Creatinine Urine Chloride Urine Total Protein Vancomycin Trough Crossmatch 05/25/18 05/25/18 05/25/18 05:42 05:49 19:50 WBC RBC Hgb Hct MCHC RDW Lymph % (Auto) [place] % (Auto) Lymph # [place] # Seg Neutrophils % Seg Neuts % (Manual) Lymphocytes % (Manual) Seg Neutrophils # Seg Neutrophils # Man Lymphocytes # (Manual) PT INR APTT POC ABG pH POC ABG pCO2 POC ABG pO2 Sodium 150 H Potassium Chloride 112.5 H Carbon Dioxide BUN 34 H Creatinine Glucose 102 H POC Glucose 107 H Lactic Acid Calcium Phosphorus Magnesium Iron TIBC AST ALT Alkaline Phosphatase Total Creatine Kinase C-Reactive Protein 34.50 H Total Protein Albumin Folate PTH Intact Urine WBC (Auto) Urine Creatinine Urine Chloride Urine Total Protein Vancomycin Trough Crossmatch 05/25/18 05/25/18 05/25/18 19:50 21:05 22:46 WBC RBC Hgb Hct MCHC RDW Lymph % (Auto) [place] % (Auto) Lymph # [place] # Seg Neutrophils % Seg Neuts % (Manual) Lymphocytes % (Manual) Seg Neutrophils # Seg Neutrophils # Man Lymphocytes # (Manual) PT INR APTT POC ABG pH 7.483 H POC ABG pCO2 24.0 L POC ABG pO2 72 L Sodium Potassium Chloride Carbon Dioxide BUN Creatinine Glucose POC Glucose Lactic Acid 5.90 H* Calcium Phosphorus Magnesium Iron TIBC AST ALT Alkaline Phosphatase Total Creatine Kinase C-Reactive Protein Total Protein Albumin Folate PTH Intact Urine WBC (Auto) Urine Creatinine Urine Chloride Urine Total Protein Vancomycin Trough 25.1 H Crossmatch 05/25/18 05/26/18 05/26/18 22:46 00:21 00:51 WBC RBC Hgb Hct MCHC RDW Lymph % (Auto) [place] % (Auto) Lymph # [place] # Seg Neutrophils % Seg Neuts % (Manual) Lymphocytes % (Manual) Seg Neutrophils # Seg Neutrophils # Man Lymphocytes # (Manual) PT INR APTT POC ABG pH POC ABG pCO2 POC ABG pO2 Sodium Potassium Chloride Carbon Dioxide BUN Creatinine Glucose POC Glucose 133 H Lactic Acid 8.10 H* 6.20 H* Calcium Phosphorus Magnesium Iron TIBC AST ALT Alkaline Phosphatase Total Creatine Kinase C-Reactive Protein Total Protein Albumin Folate PTH Intact Urine WBC (Auto) Urine Creatinine Urine Chloride Urine Total Protein Vancomycin Trough Crossmatch 05/26/18 05/26/18 05/26/18 01:13 02:24 02:24 WBC 18.7 H RBC Hgb 11.6 L Hct MCHC RDW Lymph % (Auto) [place] % (Auto) Lymph # [place] # Seg Neutrophils % Seg Neuts % (Manual) Lymphocytes % (Manual) Seg Neutrophils # Seg Neutrophils # Man Lymphocytes # (Manual) PT INR APTT POC ABG pH POC ABG pCO2 POC ABG pO2 Sodium 147 H Potassium 6.2 H* D Chloride 111.9 H Carbon Dioxide 19 L BUN 80 H Creatinine 5.1 H D Glucose 112 H POC Glucose Lactic Acid 5.20 H* Calcium 6.7 L D Phosphorus Magnesium Iron TIBC AST ALT Alkaline Phosphatase Total Creatine Kinase C-Reactive Protein Total Protein Albumin Folate PTH Intact Urine WBC (Auto) Urine Creatinine Urine Chloride Urine Total Protein Vancomycin Trough Crossmatch 05/26/18 05/26/18 05/26/18 04:20 04:20 05:39 WBC RBC Hgb Hct MCHC RDW Lymph % (Auto) [place] % (Auto) Lymph # [place] # Seg Neutrophils % Seg Neuts % (Manual) Lymphocytes % (Manual) Seg Neutrophils # Seg Neutrophils # Man Lymphocytes # (Manual) PT INR APTT POC ABG pH POC ABG pCO2 POC ABG pO2 Sodium 150 H Potassium Chloride 110.0 H Carbon Dioxide 19 L BUN 66 H Creatinine Glucose 166 H POC Glucose 187 H Lactic Acid 5.10 H* Calcium 6.9 L Phosphorus 6.70 H D Magnesium Iron TIBC AST ALT Alkaline Phosphatase Total Creatine Kinase C-Reactive Protein Total Protein Albumin Folate PTH Intact Urine WBC (Auto) Urine Creatinine Urine Chloride Urine Total Protein Vancomycin Trough Crossmatch 05/26/18 05/26/18 05/26/18 06:02 07:29 11:00 WBC RBC Hgb Hct MCHC RDW Lymph % (Auto) [place] % (Auto) Lymph # [place] # Seg Neutrophils % Seg Neuts % (Manual) Lymphocytes % (Manual) Seg Neutrophils # Seg Neutrophils # Man Lymphocytes # (Manual) PT INR APTT POC ABG pH POC ABG pCO2 28.8 L POC ABG pO2 Sodium Potassium Chloride Carbon Dioxide BUN Creatinine Glucose POC Glucose Lactic Acid 4.80 H* 3.80 H* Calcium Phosphorus Magnesium Iron TIBC AST ALT Alkaline Phosphatase Total Creatine Kinase C-Reactive Protein Total Protein Albumin Folate PTH Intact Urine WBC (Auto) Urine Creatinine Urine Chloride Urine Total Protein Vancomycin Trough Crossmatch 05/26/18 05/26/18 05/26/18 11:01 12:28 18:00 WBC RBC Hgb Hct MCHC RDW Lymph % (Auto) [place] % (Auto) Lymph # [place] # Seg Neutrophils % Seg Neuts % (Manual) Lymphocytes % (Manual) Seg Neutrophils # Seg Neutrophils # Man Lymphocytes # (Manual) PT INR APTT POC ABG pH POC ABG pCO2 POC ABG pO2 Sodium 150 H 151 H Potassium 5.3 H D 6.1 H* Chloride 110.3 H 117.0 H Carbon Dioxide 21 L 20 L BUN 75 H 77 H Creatinine 4.3 H D 4.6 H Glucose 161 H POC Glucose 114 H Lactic Acid Calcium 7.5 L 6.7 L Phosphorus Magnesium Iron TIBC AST 1041 H ALT 406 H Alkaline Phosphatase 281 H Total Creatine Kinase C-Reactive Protein Total Protein 4.4 L Albumin 1.3 L Folate PTH Intact Urine WBC (Auto) Urine Creatinine Urine Chloride Urine Total Protein Vancomycin Trough Crossmatch 05/26/18 05/26/18 05/27/18 18:02 19:17 01:01 WBC 21.7 H RBC 2.70 L Hgb 7.8 L D Hct 24.6 L D MCHC RDW 15.3 H Lymph % (Auto) [place] % (Auto) Lymph # [place] # Seg Neutrophils % Seg Neuts % (Manual) 94.0 H Lymphocytes % (Manual) 3.0 L Seg Neutrophils # Seg Neutrophils # Man 20.4 H Lymphocytes # (Manual) 0.7 L PT INR APTT POC ABG pH 7.159 L 7.205 L POC ABG pCO2 54.5 H 53.0 H POC ABG pO2 252 H Sodium Potassium Chloride Carbon Dioxide BUN Creatinine Glucose POC Glucose Lactic Acid Calcium Phosphorus Magnesium Iron TIBC AST ALT Alkaline Phosphatase Total Creatine Kinase C-Reactive Protein Total Protein Albumin Folate PTH Intact Urine WBC (Auto) Urine Creatinine Urine Chloride Urine Total Protein Vancomycin Trough Crossmatch 05/27/18 05/27/18 05/27/18 05:15 05:15 06:11 WBC 24.9 H RBC 2.86 L Hgb 8.1 L Hct 25.9 L MCHC RDW 15.5 H Lymph % (Auto) [place] % (Auto) Lymph # [place] # Seg Neutrophils % Seg Neuts % (Manual) Lymphocytes % (Manual) Seg Neutrophils # Seg Neutrophils # Man Lymphocytes # (Manual) PT INR APTT POC ABG pH 7.265 L POC ABG pCO2 46.2 H POC ABG pO2 111 H Sodium 149 H Potassium 6.9 H* Chloride 113.5 H Carbon Dioxide BUN 89 H Creatinine 5.2 H Glucose 118 H POC Glucose Lactic Acid Calcium 7.0 L Phosphorus 9.70 H D Magnesium Iron TIBC AST 876 H ALT 408 H Alkaline Phosphatase Total Creatine Kinase C-Reactive Protein Total Protein 5.2 L Albumin 1.5 L Folate PTH Intact Urine WBC (Auto) Urine Creatinine Urine Chloride Urine Total Protein Vancomycin Trough Crossmatch 09/14/18 08:48 WBC RBC Hgb Hct MCHC RDW Lymph % (Auto) [place] % (Auto) Lymph # [place] # Seg Neutrophils % Seg Neuts % (Manual) Lymphocytes % (Manual) Seg Neutrophils # Seg Neutrophils # Man Lymphocytes # (Manual) PT INR APTT POC ABG pH POC ABG pCO2 POC ABG pO2 Sodium Potassium Chloride Carbon Dioxide BUN Creatinine Glucose POC Glucose 164 H Lactic Acid Calcium Phosphorus Magnesium Iron TIBC AST ALT Alkaline Phosphatase Total Creatine Kinase C-Reactive Protein Total Protein Albumin Folate PTH Intact Urine WBC (Auto) Urine Creatinine Urine Chloride Urine Total Protein Vancomycin Trough Crossmatch Chest x-ray: image reviewed (ETT in position, RIJ CVC, low lung volumes)
[2018-05-27] MEDS: FERROUS SULFATE PO SCH (10:35)
[2018-05-27] MEDS: MAXIPIME/NS 2 GM/100 ML 2 GM/100 ML BAG IV SCH (10:36)
[2018-05-27 10:57] LABS: Calcium 6.7 mg/dL (8.4-10.2)
--- NOTE | 2018-05-27 11:03 | Progress Note ---
Assessment and Plan Assessment: Sinus tachycardia Acute respiratory failure - intubated Sepsis / UTI / ? PNA Status post bilateral neph tube placement due to hydronephrosis DVT - vascular following; patient could be anticoagulated (from neph tube standpoint) later this week (05/28/2018, POD 14). SBO / Pelvic mass - pending diverting colostomy MARYLOU Hyperkalemia HTN Anemia Plan: Echo reviewed - EF 40-45%, no significant valvular abnormalities, small pericardial effusion which does not appear to be hemodynamically significant. HR improving. Cont present management. Electrolyte management per nephrology. Nothing further to add from cardiac perspective at this time. Will follow on as needed basis. The patient has been seen in conjunction with Dr. Paz who agrees with the assessment and plan of care. Subjective Date of service: 05/27/18 Principal diagnosis: squamous cell ca - prostate bx - prelim report Interval history: pt resting in bed, intubated, sedated. in ST on telemetry with HR 100s. no family at bedside. Objective Last Vital Signs Temp 97.3 F L 05/27/18 08:00 Pulse 104 H 05/27/18 10:15 Resp 25 H 05/27/18 10:15 BP 114/80 05/27/18 10:15 Pulse Ox 96 05/27/18 10:15 - Physical Examination General: Cachectic, Other (intubated, sedated) HEENT: Positive: PERRL Neck: Positive: neck supple, trachea midline Cardiac: Positive: Regular Rhythm, S1/S2 Lungs: Positive: Decreased Breath Sounds, Oxygen, Ventilated Respirations Neuro: Positive: Other (intubated, sedated) Abdomen: Positive: Soft. Negative: Tender Skin: Negative: Rash Musculoskeletal: No Pain Extremities: Absent: edema - Labs and Meds Cardiac Enzymes 05/26/18 05/27/18 Range/Units 18:00 05:15 AST 1041 H 876 H (5-40) units/L CBC 05/26/18 05/27/18 Range/Units 19:17 05:15 WBC 21.7 H 24.9 H (4.5-11.0) K/mm3 RBC 2.70 L 2.86 L (3.65-5.03) M/mm3 Hgb 7.8 L D 8.1 L (11.8-15.2) gm/dl Hct 24.6 L D 25.9 L (35.5-45.6) % Plt Count 348 380 (140-440) K/mm3 Comprehensive Metabolic Panel 05/26/18 05/26/18 05/26/18 Range/Units 01:13 04:20 11:01 Sodium 147 H 150 H 150 H (137-145) mmol/L Potassium 6.2 H* D 3.6 D 5.3 H D (3.6-5.0) mmol/L Chloride 111.9 H 110.0 H 110.3 H (98-107) mmol/L Carbon Dioxide 19 L 19 L 21 L (22-30) mmol/L BUN 80 H 66 H 75 H (9-20) mg/dL Creatinine 5.1 H D 1.0 D 4.3 H D (0.8-1.5) mg/dL Glucose 112 H 166 H 161 H (75-100) mg/dL Calcium 6.7 L D 6.9 L 7.5 L (8.4-10.2) mg/dL AST (5-40) units/L ALT (7-56) units/L Alkaline Phosphatase (35-129) units/L Total Protein (6.3-8.2) g/dL Albumin (3.9-5) g/dL 05/26/18 05/27/18 05/27/18 Range/Units 18:00 05:15 10:22 Sodium 151 H 149 H 146 H (137-145) mmol/L Potassium 6.1 H* 6.9 H* (3.6-5.0) mmol/L Chloride 117.0 H 113.5 H 108.2 H (98-107) mmol/L Carbon Dioxide 20 L 22 21 L (22-30) mmol/L BUN 77 H 89 H 88 H (9-20) mg/dL Creatinine 4.6 H 5.2 H 5.6 H (0.8-1.5) mg/dL Glucose 84 118 H 163 H (75-100) mg/dL Calcium 6.7 L 7.0 L 6.7 L (8.4-10.2) mg/dL AST 1041 H 876 H (5-40) units/L ALT 406 H 408 H (7-56) units/L Alkaline Phosphatase 281 H 83 (35-129) units/L Total Protein 4.4 L 5.2 L (6.3-8.2) g/dL Albumin 1.3 L 1.5 L (3.9-5) g/dL - Imaging and Cardiology EKG: report reviewed, image reviewed Echo: pending - EKG Sinus rhythms and dysrhythmias: sinus tachycardia
[2018-05-27] MEDS: FLAGYL 500 MG/100 ML 500 MG/100 ML BAG IV SCH ×2 (11:28→17:58)
[2018-05-27] MEDS: FOLVITE PO SCH (12:14)
[2018-05-27] MEDS: ZYVOX 600MG/300ML 600 MG/300 ML BAG IV SCH (12:18)
[2018-05-27] MEDS: PEPCID IV SCH (12:18)
--- NOTE | 2018-05-27 13:23 | Progress Note ---
Assessment and Plan POD #1 Pt appears comfortable. Awake and alert. Being weaned for possible extubation. to be dialyzed today. VSS on no pressors Abd soft, dressings dry. ostomy pink labs as below ET nurse consult for ostomy care. Begin local wd care in am. condition - critical Selected Entries 05/23/18 05/24/18 05/24/18 17:31 05:26 05:54 Temperature 100.7 F H Pulse Rate 117 H Respiratory 20 Rate Blood Pressure 171/104 05/25/18 05/25/18 05/25/18 12:09 12:25 12:40 Temperature Pulse Rate 115 H Respiratory 18 Rate Blood Pressure 147/81 05/27/18 12:00 Temperature 97.6 F Pulse Rate 104 H Respiratory 24 Rate Blood Pressure 114/80 Laboratory Tests 05/25/18 05/27/18 05/27/18 05:42 05:15 06:11 WBC 24.9 H Hgb 8.1 L Hct 25.9 L POC ABG pH 7.265 L POC ABG pCO2 46.2 H POC ABG pO2 111 H POC ABG HCO3 21.0 Sodium 150 H Potassium 3.6 Chloride 112.5 H Carbon Dioxide BUN 34 H Creatinine 1.0 05/27/18 10:22 WBC Hgb Hct POC ABG pH POC ABG pCO2 POC ABG pO2 POC ABG HCO3 Sodium 146 H Potassium 6.1 H* Chloride 108.2 H Carbon Dioxide 21 L BUN 88 H Creatinine 5.6 H Objective Vital Signs - 12hr 05/27/18 05/27/18 05/27/18 01:30 01:45 02:00 Temperature Pulse Rate 106 H 105 H 105 H Pulse Rate [ From Monitor] Respiratory 22 22 22 Rate Blood Pressure 94/62 94/63 102/65 O2 Sat by Pulse 94 95 96 Oximetry 05/27/18 05/27/18 05/27/18 02:15 02:30 02:45 Temperature Pulse Rate 105 H 105 H 106 H Pulse Rate [ From Monitor] Respiratory 20 24 24 Rate Blood Pressure 100/67 91/58 101/70 O2 Sat by Pulse 97 98 97 Oximetry 05/27/18 05/27/18 05/27/18 03:00 03:15 03:30 Temperature Pulse Rate 104 H 104 H 104 H Pulse Rate [ From Monitor] Respiratory 23 20 23 Rate Blood Pressure 106/79 105/74 107/69 O2 Sat by Pulse 98 98 98 Oximetry 05/27/18 05/27/18 05/27/18 03:45 03:47 04:00 Temperature 97.6 F Pulse Rate 106 H 106 H 102 H Pulse Rate [ From Monitor] Respiratory 22 22 Rate Blood Pressure 106/74 105/61 105/68 O2 Sat by Pulse 98 96 Oximetry 05/27/18 05/27/18 05/27/18 04:15 04:30 04:45 Temperature Pulse Rate 104 H 107 H 108 H Pulse Rate [ From Monitor] Respiratory 22 22 22 Rate Blood Pressure 103/69 104/74 111/81 O2 Sat by Pulse 96 Oximetry 05/27/18 05/27/18 05/27/18 05:00 05:15 05:30 Temperature Pulse Rate 108 H 108 H 109 H Pulse Rate [ From Monitor] Respiratory 22 25 H 24 Rate Blood Pressure 111/81 115/76 113/80 O2 Sat by Pulse 98 95 96 Oximetry 05/27/18 05/27/18 05/27/18 05:34 05:45 06:00 Temperature Pulse Rate 108 H 112 H 110 H Pulse Rate [ From Monitor] Respiratory 23 25 H Rate Blood Pressure 113/80 114/73 125/80 O2 Sat by Pulse 97 96 Oximetry 05/27/18 05/27/18 05/27/18 06:15 06:30 06:45 Temperature Pulse Rate 107 H 106 H 105 H Pulse Rate [ From Monitor] Respiratory 28 H 22 21 Rate Blood Pressure 121/84 115/78 113/77 O2 Sat by Pulse 96 98 97 Oximetry 05/27/18 05/27/18 05/27/18 07:00 07:15 07:30 Temperature Pulse Rate 106 H 103 H 101 H Pulse Rate [ From Monitor] Respiratory 21 22 20 Rate Blood Pressure 113/76 114/77 107/74 O2 Sat by Pulse 100 99 99 Oximetry 05/27/18 05/27/18 05/27/18 07:45 07:55 08:00 Temperature 97.3 F L Pulse Rate 103 H 102 H 105 H Pulse Rate [ 105 H From Monitor] Respiratory 20 22 Rate Blood Pressure 109/73 110/62 112/76 O2 Sat by Pulse 96 98 96 Oximetry 05/27/18 05/27/18 05/27/18 08:15 08:30 08:45 Temperature Pulse Rate 105 H 103 H Pulse Rate [ From Monitor] Respiratory 26 H 23 Rate Blood Pressure 118/73 114/79 115/79 O2 Sat by Pulse 95 97 96 Oximetry 05/27/18 05/27/18 05/27/18 09:00 09:15 09:30 Temperature Pulse Rate 106 H 103 H 102 H Pulse Rate [ From Monitor] Respiratory 24 21 22 Rate Blood Pressure 116/78 114/80 116/76 O2 Sat by Pulse 97 100 Oximetry 05/27/18 05/27/18 05/27/18 09:45 10:00 10:15 Temperature Pulse Rate 104 H 100 H 104 H Pulse Rate [ From Monitor] Respiratory 24 23 25 H Rate Blood Pressure 119/78 115/79 114/80 O2 Sat by Pulse 97 99 96 Oximetry 05/27/18 05/27/18 05/27/18 10:30 10:45 11:00 Temperature Pulse Rate 102 H 107 H 105 H Pulse Rate [ From Monitor] Respiratory 23 24 24 Rate Blood Pressure 116/78 112/78 112/78 O2 Sat by Pulse 97 97 98 Oximetry 05/27/18 05/27/18 05/27/18 11:15 11:30 11:45 Temperature Pulse Rate 103 H 101 H 103 H Pulse Rate [ From Monitor] Respiratory 25 H 24 22 Rate Blood Pressure 117/80 114/77 119/76 O2 Sat by Pulse 97 97 Oximetry 05/27/18 12:00 Temperature 97.6 F Pulse Rate 104 H Pulse Rate [ 105 H From Monitor] Respiratory 24 Rate Blood Pressure 114/80 O2 Sat by Pulse 96 Oximetry - Labs 05/27/18 05:15 05/27/18 10:22 Diabetes panel 05/26/18 05/26/18 05/26/18 Range/Units 01:13 04:20 18:00 Sodium 147 H 150 H 151 H (137-145) mmol/L Potassium 6.2 H* D 3.6 D 6.1 H* (3.6-5.0) mmol/L Chloride 111.9 H 110.0 H 117.0 H (98-107) mmol/L Carbon Dioxide 19 L 19 L 20 L (22-30) mmol/L BUN 80 H 66 H 77 H (9-20) mg/dL Creatinine 5.1 H D 1.0 D 4.6 H (0.8-1.5) mg/dL Glucose 112 H 166 H 84 (75-100) mg/dL Calcium 6.7 L D 6.9 L 6.7 L (8.4-10.2) mg/dL AST 1041 H (5-40) units/L ALT 406 H (7-56) units/L Alkaline Phosphatase 281 H (35-129) units/L Total Protein 4.4 L (6.3-8.2) g/dL Albumin 1.3 L (3.9-5) g/dL 05/27/18 05/27/18 Range/Units 05:15 10:22 Sodium 149 H 146 H (137-145) mmol/L Potassium 6.9 H* 6.1 H* (3.6-5.0) mmol/L Chloride 113.5 H 108.2 H (98-107) mmol/L Carbon Dioxide 22 21 L (22-30) mmol/L BUN 89 H 88 H (9-20) mg/dL Creatinine 5.2 H 5.6 H (0.8-1.5) mg/dL Glucose 118 H 163 H (75-100) mg/dL Calcium 7.0 L 6.7 L (8.4-10.2) mg/dL AST 876 H (5-40) units/L ALT 408 H (7-56) units/L Alkaline Phosphatase 83 (35-129) units/L Total Protein 5.2 L (6.3-8.2) g/dL Albumin 1.5 L (3.9-5) g/dL Calcium panel 05/26/18 05/26/18 05/26/18 Range/Units 01: 04:20 18:00 Calcium 6.7 L D 6.9 L 6.7 L (8.4-10.2) mg/dL Phosphorus 6.70 H D (2.5-4.5) mg/dL Albumin 1.3 L (3.9-5) g/dL 05/27/18 05/27/18 Range/Units 05:15 10:22 Calcium 7.0 L 6.7 L (8.4-10.2) mg/dL Phosphorus 9.70 H D (2.5-4.5) mg/dL Albumin 1.5 L (3.9-5) g/dL Pituitary panel 05/26/18 05/26/18 05/26/18 Range/Units 01:13 04:20 18:00 Sodium 147 H 150 H 151 H (137-145) mmol/L Potassium 6.2 H* D 3.6 D 6.1 H* (3.6-5.0) mmol/L Chloride 111.9 H 110.0 H 117.0 H (98-107) mmol/L Carbon Dioxide 19 L 19 L 20 L (22-30) mmol/L BUN 80 H 66 H 77 H (9-20) mg/dL Creatinine 5.1 H D 1.0 D 4.6 H (0.8-1.5) mg/dL Glucose 112 H 166 H 84 (75-100) mg/dL Calcium 6.7 L D 6.9 L 6.7 L (8.4-10.2) mg/dL 05/27/18 05/27/18 Range/Units 05:15 10:22 Sodium 149 H 146 H (137-145) mmol/L Potassium 6.9 H* 6.1 H* (3.6-5.0) mmol/L Chloride 113.5 H 108.2 H (98-107) mmol/L Carbon Dioxide 22 21 L (22-30) mmol/L BUN 89 H 88 H (9-20) mg/dL Creatinine 5.2 H 5.6 H (0.8-1.5) mg/dL Glucose 118 H 163 H (75-100) mg/dL Calcium 7.0 L 6.7 L (8.4-10.2) mg/dL Adrenal panel 05/26/18 05/26/18 05/26/18 Range/Units 01:13 04:20 18:00 Sodium 147 H 150 H 151 H (137-145) mmol/L Potassium 6.2 H* D 3.6 D 6.1 H* (3.6-5.0) mmol/L Chloride 111.9 H 110.0 H 117.0 H (98-107) mmol/L Carbon Dioxide 19 L 19 L 20 L (22-30) mmol/L BUN 80 H 66 H 77 H (9-20) mg/dL Creatinine 5.1 H D 1.0 D 4.6 H (0.8-1.5) mg/dL Glucose 112 H 166 H 84 (75-100) mg/dL Calcium 6.7 L D 6.9 L 6.7 L (8.4-10.2) mg/dL Total Bilirubin 1.10 (0.1-1.2) mg/dL AST 1041 H (5-40) units/L ALT 406 H (7-56) units/L Alkaline Phosphatase 281 H (35-129) units/L Total Protein 4.4 L (6.3-8.2) g/dL Albumin 1.3 L (3.9-5) g/dL 05/27/18 05/27/18 Range/Units 05:15 10:22 Sodium 149 H 146 H (137-145) mmol/L Potassium 6.9 H* 6.1 H* (3.6-5.0) mmol/L Chloride 113.5 H 108.2 H (98-107) mmol/L Carbon Dioxide 22 21 L (22-30) mmol/L BUN 89 H 88 H (9-20) mg/dL Creatinine 5.2 H 5.6 H (0.8-1.5) mg/dL Glucose 118 H 163 H (75-100) mg/dL Calcium 7.0 L 6.7 L (8.4-10.2) mg/dL Total Bilirubin 1.20 (0.1-1.2) mg/dL AST 876 H (5-40) units/L ALT 408 H (7-56) units/L Alkaline Phosphatase 83 (35-129) units/L Total Protein 5.2 L (6.3-8.2) g/dL Albumin 1.5 L (3.9-5) g/dL
[2018-05-27] MEDS ORDERED: NACL 0.9% 100 ML IV PRN (13:30)
[2018-05-27 14:52] LABS: Bacteria,Urine 1+ /HPF (Negative); Bilirubin,Urine NEG (Negative); Blood,Urine LG (Negative); Color,Urine Amber (Yellow); Mucus,Urine FEW /HPF; Urobilinogen,Urine < 2.0 mg/dL (<2.0)
[2018-05-27 15:33] LABS: Hepatitis B Core IgM Non-Reactive (NonReactive); Hepatitis B Surface Antigen Non-Reactive (Negative); Hepatitis C Virus Antibody Non-Reactive (NonReactive)
--- NOTE | 2018-05-27 17:50 | Operative Report ---
Operative Report Operative Report: Operative note: Date: 05/27/2018 Preoperative diagnosis: Renal failure Postoperative diagnosis: Same. Operation: Right femoral Vas-Cath insertion Surgeon: Gretta Quintana. Asst.: None Anesthesia: Local EBL: Minimal Findings: None Indications: Patient with multiple surgical comorbidities develop renal failure requiring hemodialysis. Risks and benefits were discussed with patient and family and informed consent was signed. Operative details: Patient prepped and draped right groin in a sterile fashion. Timeout performed . Right femoral vein was accessed under ultrasound guidance with wire was advanced in the femoral vein and IVC. Skin incision was made with 11 blade and serially dilated skin past with subsequent insertion of Vas-Cath catheter 30 cm in length. Ports were checked for good flow and flushed with saline. Catheter was secured in place with 3-0 nylon stitches and sterile dressing applied. He tolerated the procedure well.
[2018-05-27] MEDS: MORPHINE IV PRN (19:59)
[2018-05-27] MEDS ORDERED: TPN ADULT 2,016 ML IV SCH (20:00)
--- NOTE | 2018-05-27 21:09 | Hem/Onc Progress Note ---
Assessment and Plan bowel obstruction - s/p diverting colostomy 05/26 sx- matted mass #Pelvic mass Large pelvic mass between bladder and rectum with large lymph nodes, s/p cystoscopy prostate area bx - prelim - sq cell ca # CT showed bowel obstruction - NGT - sx team following # anemia low folate on replacement # leukocytosis on 05/22 - we will follow - likely reactive # h/o Acute kidney injury due to pelvic mass - Nephrology following. Ultrasound Kidneys showed bilat hydronephrosis CT Abd shows Pelvic mass with multiple large lymph nodes Had bilateral nephrostomy tubes placed 05/14/[address] Freeman. #Acute DVT right leg - below knee No anticoagulation for now because of bilateral nephrostomy tubes and acute abdo issues. 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 - Patient Problems (1) Pelvic mass in male Current Visit: Yes Status: Acute Subjective Date of service: 05/27/18 Principal diagnosis: pelvic mass Interval history: pt in critical unit pt had diverting colostomy 05/26 05/27 - d/w sister and pt on vent - awake central line in neck NGT suction+ Objective - Constitutional Vitals: Last Vital Signs Temp 97.6 F 05/27/18 16:00 Pulse 106 H 05/27/18 20:00 Resp 24 05/27/18 20:00 BP 122/86 05/27/18 20:00 Pulse Ox 97 05/27/18 20:00 General appearance: mild distress - EENT Eyes: PERRL - Neck Neck: other (central line) - Respiratory Respiratory effort: Positive: other (on vent) Respiratory: bilateral: CTA (anteriorly) - Cardiovascular Heart Sounds: Present: S1 & S2 Extremities: No edema - Gastrointestinal General gastrointestinal: Present: other (s/p sx - has colostomy) Rectal Exam: deferred - Genitourinary Male genitourinary: Present: deferred - Neurologic Neurologic: moves all extremities - Labs Lab Results: Laboratory Results - last 24 hr 05/26/18 05/26/18 05/26/18 01:13 04:20 22:06 WBC RBC Hgb Hct MCV MCH MCHC RDW Plt Count POC ABG pH POC ABG pCO2 POC ABG pO2 POC ABG HCO3 POC ABG Total CO2 POC ABG O2 Sat POC ABG Base Excess FiO2 Sodium 147 H 150 H Potassium 6.2 H* D 3.6 D Chloride 111.9 H 110.0 H Carbon Dioxide 19 L 19 L Anion Gap 22 25 BUN 80 H 66 H Creatinine 5.1 H D 1.0 D Estimated GFR 15 > 60 BUN/Creatinine Ratio 16 66 Glucose 112 H 166 H POC Glucose 91 Calcium 6.7 L D 6.9 L Phosphorus 6.70 H D Magnesium 2.20 Total Bilirubin AST ALT Alkaline Phosphatase C-Reactive Protein Total Protein Albumin Albumin/Globulin Ratio Urine Color Urine Turbidity Urine pH Ur Specific [place] Urine Protein Urine Glucose (UA) Urine Ketones Urine Blood Urine Nitrite Urine Bilirubin Urine Urobilinogen Ur Leukocyte Esterase Urine WBC (Auto) Urine RBC (Auto) U Epithel Cells (Auto) Urine Bacteria (Auto) Urine Mucus Hep Bs Antigen Hep B Core IgM Ab Hepatitis C Antibody 05/27/18 05/27/18 05/27/18 01:01 05:15 05:15 WBC 24.9 H RBC 2.86 L Hgb 8.1 L Hct 25.9 L MCV 91 MCH 29 MCHC 32 RDW 15.5 H Plt Count 380 POC ABG pH 7.205 L POC ABG pCO2 53.0 H POC ABG pO2 100 POC ABG HCO3 21.0 POC ABG Total CO2 23 POC ABG O2 Sat 96 POC ABG Base Excess -7 FiO2 50 Sodium 149 H Potassium 6.9 H* Chloride 113.5 H Carbon Dioxide 22 Anion Gap 20 BUN 89 H Creatinine 5.2 H Estimated GFR 14 BUN/Creatinine Ratio 17 Glucose 118 H POC Glucose Calcium 7.0 L Phosphorus 9.70 H D Magnesium 2.20 Total Bilirubin 1.20 AST 876 H ALT 408 H Alkaline Phosphatase 83 C-Reactive Protein Total Protein 5.2 L Albumin 1.5 L Albumin/Globulin Ratio 0.4 Urine Color Urine Turbidity Urine pH Ur Specific [place] Urine Protein Urine Glucose (UA) Urine Ketones Urine Blood Urine Nitrite Urine Bilirubin Urine Urobilinogen Ur Leukocyte Esterase Urine WBC (Auto) Urine RBC (Auto) U Epithel Cells (Auto) Urine Bacteria (Auto) Urine Mucus Hep Bs Antigen Hep B Core IgM Ab Hepatitis C Antibody 05/27/18 05/27/18 05/27/18 06:11 08:48 10:22 WBC RBC Hgb Hct MCV MCH MCHC RDW Plt Count POC ABG pH 7.265 L POC ABG pCO2 46.2 H POC ABG pO2 111 H POC ABG HCO3 21.0 POC ABG Total CO2 22 POC ABG O2 Sat 98 POC ABG Base Excess -6 FiO2 50 Sodium Potassium Chloride Carbon Dioxide Anion Gap BUN Creatinine Estimated GFR BUN/Creatinine Ratio Glucose POC Glucose 164 H Calcium Phosphorus Magnesium Total Bilirubin AST ALT Alkaline Phosphatase C-Reactive Protein 40.70 H Total Protein Albumin Albumin/Globulin Ratio Urine Color Urine Turbidity Urine pH Ur Specific [place] Urine Protein Urine Glucose (UA) Urine Ketones Urine Blood Urine Nitrite Urine Bilirubin Urine Urobilinogen Ur Leukocyte Esterase Urine WBC (Auto) Urine RBC (Auto) U Epithel Cells (Auto) Urine Bacteria (Auto) Urine Mucus Hep Bs Antigen Hep B Core IgM Ab Hepatitis C Antibody 05/27/18 05/27/18 05/27/18 10:22 12:13 13:41 WBC RBC Hgb Hct MCV MCH MCHC RDW Plt Count POC ABG pH POC ABG pCO2 POC ABG pO2 POC ABG HCO3 POC ABG Total CO2 POC ABG O2 Sat POC ABG Base Excess FiO2 Sodium 146 H Potassium 6.1 H* Chloride 108.2 H Carbon Dioxide 21 L Anion Gap 23 BUN 88 H Creatinine 5.6 H Estimated GFR 13 BUN/Creatinine Ratio 16 Glucose 163 H POC Glucose 78 Calcium 6.7 L Phosphorus Magnesium Total Bilirubin AST ALT Alkaline Phosphatase C-Reactive Protein Total Protein Albumin Albumin/Globulin Ratio Urine Color Urine Turbidity Urine pH Ur Specific [place] Urine Protein Urine Glucose (UA) Urine Ketones Urine Blood Urine Nitrite Urine Bilirubin Urine Urobilinogen Ur Leukocyte Esterase Urine WBC (Auto) Urine RBC (Auto) U Epithel Cells (Auto) Urine Bacteria (Auto) Urine Mucus Hep Bs Antigen Non-reactive Hep B Core IgM Ab Non-reactive Hepatitis C Antibody Non-reactive 05/27/18 05/27/18 17:39 Unknown WBC RBC Hgb Hct MCV MCH MCHC RDW Plt Count POC ABG pH POC ABG pCO2 POC ABG pO2 POC ABG HCO3 POC ABG Total CO2 POC ABG O2 Sat POC ABG Base Excess FiO2 Sodium Potassium Chloride Carbon Dioxide Anion Gap BUN Creatinine Estimated GFR BUN/Creatinine Ratio Glucose POC Glucose 59 L Calcium Phosphorus Magnesium Total Bilirubin AST ALT Alkaline Phosphatase C-Reactive Protein Total Protein Albumin Albumin/Globulin Ratio Urine Color [place] Urine Turbidity Cloudy Urine pH 5.0 Ur Specific [place] 1.026 Urine Protein 100 mg/dl Urine Glucose (UA) 50 Urine Ketones Neg Urine Blood Lg Urine Nitrite Neg Urine Bilirubin Neg Urine Urobilinogen < 2.0 Ur Leukocyte Esterase Mod Urine WBC (Auto) 120.0 H Urine RBC (Auto) 35.0 U Epithel Cells (Auto) 3.0 Urine Bacteria (Auto) 1+ Urine Mucus Few Hep Bs Antigen Hep B Core IgM Ab Hepatitis C Antibody
[2018-05-28] MEDS: MORPHINE IV PRN ×4 (00:13→20:04)
[2018-05-28] MEDS: FLAGYL 500 MG/100 ML 500 MG/100 ML BAG IV SCH ×4 (00:14→22:42)
[2018-05-28] MEDS: APRESOLINE PO SCH ×4 (01:32→22:41)
[2018-05-28] MEDS: LOPRESSOR IV SCH ×4 (05:36→22:40)
[2018-05-28 05:43] LABS: Hematocrit 23.6 % (35.5-45.6); Hemoglobin 7.7 gm/dl (11.8-15.2); Mean Corpuscular HGB Conc 33 % (32-34); Mean Corpuscular Hemoglobin 29 pg (28-32); Mean Corpuscular Volume 88 fl (84-94); Platelet Count 365 K/mm3 (140-440); Red Blood Count 2.69 M/mm3 (3.65-5.03); Red Cell Distribution Width 14.8 % (13.2-15.2)
[2018-05-28] MEDS: FERROUS SULFATE PO SCH ×3 (06:11→22:00)
[2018-05-28 06:24] LABS: Band Neutrophils # (Manual) 0.3 K/mm3; Basophils % (Manual) 0 % (0.0-1.8); Eosinophils % (Manual) 0 % (0.0-4.3); Hypochromasia 1+; Platelet Estimate Consistent w Auto; Total Cells Counted 100
--- NOTE | 2018-05-28 08:19 | Progress Note ---
Assessment and Plan Assessment and plan: The patient is a 52 YO AAM with medical history significant for Uncontrolled HTN who came to the ER for evaluation of bilateral leg swelling, SOB and no urine output. He had abdominal pain, bilateral leg swelling, stopped making urine. Currently the patient has had a weight loss of over 50 pounds in the last 3 months. He was not taking any meds on a regular basis and has not seen a physician except ER visit last year. He underwent a biopsy with placement of bilateral nephrostomy tubes. 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 Acute respiratory failure. Intubated yesterday. Pulmonology following Sepsis. Now on Cefepime, Zyvox, flagyl. He was evaluated by ID Physician Bowel obstruction s/p surgery 05/26 POD#1 had exploratory laparotomy, revealed matted abdominal organs, pus. Eenterostomy tube decompression,loop colostomy and large triple lumen sump drainage of pelvis was done 05/26/[address] Keita /Pelvic mass Large pelvic mass between bladder and rectum with large lymph nodes, malignant. Consulted Urology to evaluate, s/p cystoscopy with prostate biopsy Differentiated carcinoma with squamous differentiation on pathology but unsure of exact primary /Acute kidney injury due to pelvic mass New diagnosis, No history of renal disease Nephrology following. Ultrasound Kidneys showed bilat hydronephrosis CT Abd shows Pelvic mass with multiple large lymph nodes Had bilateral nephrostomy tubes placed 05/14/[address] Freeman. Creatinine worse. Discussed with Nephrology. started dialysis 05/27 /Acute DVT right femoral vein. No anticoagulation for now because of bilateral nephrostomy tubes, now major abdominal surgery Reassesed with repeat venous doppler and showed no DVT propagation /Hypertensive urgency, Now resolved. \ Sinus tachycardia improved cardiology following Was OK to use contrast for CT Angio as per Nephrology CT Angio chest negative for Pulm embolism /Hyperkalemia, was not resolved after multiple treatment attempts with calcium iv, Insulin Discussed with Nephrology Now resolved after dialysis 05/27. Potassium 4.9 today /Hypernatremia, /Metabolic acidosis due to MARYLOU, resolved with iv fluid /ACUTE BLOOD LOSS ANEMIA Monitor. /Fever, Obtained blood cultures /Moderate to severe protein calorie malnutrition - continue TPN Full code status Discussed with Dr. Valentin. He states patient not accepted at [facility]. I discussed with Dr. Keita, surgeon. he recommends colonoscopy by GI then, he, Dr. Keita will do diverting colostomy. I then discussed with Dr. Cunningham and he states will do flex sigmoidoscopy. I later discussed this with patient and sister at bedside, in presence of Nurse , Kita and Pipefitter Welder on 05/24/18 Flexible sigmoidoscopy done 05/25 History Interval history: Patient had major abdominal surgery 05/26 still intubated Hospitalist Physical - Physical exam Narrative exam: GEN:Not in acute distress, lying in bed, very ill looking,intubated HEENT: Normocephalic, atraumatic, Neck: supple, No JVD Lungs: Clear to auscultaion bilaterally, no crackles Heart:S1 and S2 reg, no murmurs, rubs or gallop Abd:soft, mild tender, surgical wound covered with dressing, ostomy,surgical drain, bilat nephrostomy tubes Ext: No edema, clubbing or cyanosis Neuro: Awake, alert, intubated, not sedated - Constitutional Vitals: Temp Pulse Resp BP Pulse Ox 99.9 F H 92 H 23 122/83 97 05/28/18 03:50 05/28/18 07:13 05/28/18 04:15 05/28/18 07:13 05/28/18 07:13 General appearance: Present: cachectic Results - Labs CBC & Chem 7: 05/28/18 05:00 05/28/18 05:00 Labs: Laboratory Last Values WBC 26.5 K/mm3 (4.5-11.0) H 05/28/18 05:00 RBC 2.69 M/mm3 (3.65-5.03) L 05/28/18 05:00 Hgb 7.7 gm/dl (11.8-15.2) L 05/28/18 05:00 Hct 23.6 % (35.5-45.6) L 05/28/18 05:00 MCV 88 fl (84-94) 05/28/18 05:00 MCH 29 pg (28-32) 05/28/18 05:00 MCHC 33 % (32-34) 05/28/18 05:00 RDW 14.8 % (13.2-15.2) 05/28/18 05:00 Plt Count 365 K/mm3 (140-440) 05/28/18 05:00 Lymph % (Auto) Rehabilitation Engineer 05/28/18 05:00 Drew % (Auto) Rehabilitation Engineer 05/28/18 05:00 Eos % (Auto) Rehabilitation Engineer 05/28/18 05:00 Baso % (Auto) Rehabilitation Engineer 05/28/18 05:00 Lymph # Rehabilitation Engineer 05/28/18 05:00 Drew # Rehabilitation Engineer 05/28/18 05:00 Eos # Rehabilitation Engineer 05/28/18 05:00 Baso # Rehabilitation Engineer 05/28/18 05:00 Add Manual Diff Complete 05/28/18 05:00 Total Counted 100 05/28/18 05:00 Seg Neutrophils % Rehabilitation Engineer 05/28/18 05:00 Seg Neuts % (Manual) 96.0 % (40.0-70.0) H 05/28/18 05:00 Band Neutrophils % 1.0 % 05/28/18 05:00 Lymphocytes % (Manual) 0 % (13.4-35.0) L 05/28/18 05:00 Reactive Lymphs % (Man) 2.0 % 05/28/18 05:00 Monocytes % (Manual) 1.0 % (0.0-7.3) 05/28/18 05:00 Eosinophils % (Manual) 0 % (0.0-4.3) 05/28/18 05:00 Basophils % (Manual) 0 % (0.0-1.8) 05/28/18 05:00 Metamyelocytes % 0 % 05/28/18 05:00 Myelocytes % 0 % 05/28/18 05:00 Promyelocytes % 0 % 05/28/18 05:00 Blast Cells % 0 % 05/28/18 05:00 Nucleated RBC % Not Reportable 05/28/18 05:00 Seg Neutrophils # Rehabilitation Engineer 05/28/18 05:00 Seg Neutrophils # Man 25.4 K/mm3 (1.8-7.7) H 05/28/18 05:00 Band Neutrophils # 0.3 K/mm3 05/28/18 05:00 Lymphocytes # (Manual) 0.0 K/mm3 (1.2-5.4) L 05/28/18 05:00 Abs React Lymphs (Man) 0.5 K/mm3 05/28/18 05:00 Monocytes # (Manual) 0.3 K/mm3 (0.0-0.8) 05/28/18 05:00 Eosinophils # (Manual) 0.0 K/mm3 (0.0-0.4) 05/28/18 05:00 Basophils # (Manual) 0.0 K/mm3 (0.0-0.1) 05/28/18 05:00 Metamyelocytes # 0.0 K/mm3 05/28/18 05:00 Myelocytes # 0.0 K/mm3 05/28/18 05:00 Promyelocytes # 0.0 K/mm3 05/28/18 05:00 Blast Cells # 0.0 K/mm3 05/28/18 05:00 WBC Morphology Not Reportable 05/28/18 05:00 Hypersegmented Neuts Not Reportable 05/28/18 05:00 Hyposegmented Neuts Not Reportable 05/28/18 05:00 Hypogranular Neuts Not Reportable 05/28/18 05:00 Smudge Cells Not Reportable 05/28/18 05:00 Toxic Granulation Not Reportable 05/28/18 05:00 Toxic Vacuolation Not Reportable 05/28/18 05:00 Dohle Bodies Not Reportable 05/28/18 05:00 Pelger-Huet Anomaly Not Reportable 05/28/18 05:00 Mahesh Rods Not Reportable 05/28/18 05:00 Platelet Estimate Consistent w auto 05/28/18 05:00 Clumped Platelets Not Reportable 05/28/18 05:00 Plt Clumps, EDTA Not Reportable 05/28/18 05:00 Large Platelets Not Reportable 05/28/18 05:00 Giant Platelets Not Reportable 05/28/18 05:00 Platelet Satelliting Not Reportable 05/28/18 05:00 Plt Morphology Comment Not Reportable 05/28/18 05:00 RBC Morphology Not Reportable 05/28/18 05:00 Dimorphic RBCs Not Reportable 05/28/18 05:00 Polychromasia Not Reportable 05/28/18 05:00 Hypochromasia 1+ 05/28/18 05:00 Poikilocytosis Not Reportable 05/28/18 05:00 Anisocytosis Not Reportable 05/28/18 05:00 Microcytosis Not Reportable 05/28/18 05:00 Macrocytosis Not Reportable 05/28/18 05:00 Spherocytes Not Reportable 05/28/18 05:00 Pappenheimer Bodies Not Reportable 05/28/18 05:00 Sickle Cells Not Reportable 05/28/18 05:00 Target Cells Not Reportable 05/28/18 05:00 Tear Drop Cells Not Reportable 05/28/18 05:00 Ovalocytes Not Reportable 05/28/18 05:00 Helmet Cells Not Reportable 05/28/18 05:00 [place] Bodies Not Reportable 05/28/18 05:00 [place] Rings Not Reportable 05/28/18 05:00 Nory Cells Not Reportable 05/28/18 05:00 Bite Cells Not Reportable 05/28/18 05:00 Crenated Cell Not Reportable 05/28/18 05:00 Elliptocytes Not Reportable 05/28/18 05:00 Acanthocytes (Spur) Not Reportable 05/28/18 05:00 Rouleaux Not Reportable 05/28/18 05:00 Hemoglobin C Crystals Not Reportable 05/28/18 05:00 Schistocytes Not Reportable 05/28/18 05:00 Malaria parasites Not Reportable 05/28/18 05:00 Mk Bodies Not Reportable 05/28/18 05:00 Hem Pathologist Commnt No 05/28/18 05:00 PT 18.3 Sec. (12.2-14.9) H 05/23/18 09:03 INR 1.43 (0.87-1.13) H 05/23/18 09:03 APTT 40.0 Sec. (24.2-36.6) H 05/23/18 09:03 POC ABG pH 7.390 (7.35-7.45) 05/28/18 04:32 POC ABG pCO2 43.8 (35-45) 05/28/18 04:32 POC ABG pO2 134 (80-105) H 05/28/18 04:32 POC ABG HCO3 26.5 05/28/18 04:32 POC ABG Total CO2 28 05/28/18 04:32 POC ABG O2 Sat 99 05/28/18 04:32 POC ABG Base Excess 2 05/28/18 04:32 FiO2 50 % 05/28/18 04:32 Sodium 143 mmol/L (137-145) 05/28/18 05:00 Potassium 4.9 mmol/L (3.6-5.0) 05/28/18 05:00 Chloride 105.5 mmol/L (98-107) 05/28/18 05:00 Carbon Dioxide 24 mmol/L (22-30) 05/28/18 05:00 Anion Gap 18 mmol/L 05/28/18 05:00 BUN 69 mg/dL (9-20) H 05/28/18 05:00 Creatinine 4.4 mg/dL (0.8-1.5) H 05/28/18 05:00 Estimated GFR 17 ml/min 05/28/18 05:00 BUN/Creatinine Ratio 16 % 05/28/18 05:00 Glucose 118 mg/dL (75-100) H 05/28/18 05:00 POC Glucose 128 (70-105) H 05/28/18 05:27 Hemoglobin A1c 5.7 % (4-6) 05/14/18 05:05 Lactic Acid 3.80 mmol/L (0.7-2.0) H* 05/26/18 11:00 Calcium 8.0 mg/dL (8.4-10.2) L D 05/28/18 05:00 Phosphorus 6.80 mg/dL (2.5-4.5) H D 05/28/18 05:00 Magnesium 1.90 mg/dL (1.7-2.3) 05/28/18 05:00 Iron 24 ug/dL (49-181) L 05/16/18 07:02 TIBC 160 mcg/dL (250-450) L 05/16/18 07:02 Ferritin 325.8 ng/mL (13.0-400.0) 05/16/18 07:02 Total Bilirubin 1.20 mg/dL (0.1-1.2) 05/27/18 05:15 AST 876 units/L (5-40) H 05/27/18 05:15 ALT 408 units/L (7-56) H 05/27/18 05:15 Alkaline Phosphatase 83 units/L (35-129) 05/27/18 05:15 Total Creatine Kinase 156 units/L (55-170) 05/25/18 22:46 CK-MB (CK-2) 2.3 ng/mL (0.0-4.0) 05/25/18 22:46 CK-MB (CK-2) Rel Index 1.4 (0-4) 05/25/18 22:46 C-Reactive Protein 40.70 mg/dL (0.00-1.30) H 05/27/18 10:22 Total Protein 5.2 g/dL (6.3-8.2) L 05/27/18 05:15 Albumin 1.5 g/dL (3.9-5) L 05/27/18 05:15 Albumin/Globulin Ratio 0.4 % 05/27/18 05:15 Prostate Specific Ag 0.96 ng/mL (0.00-4.00) 05/14/18 13:29 Vitamin B12 359.2 pg/mL (211-911) 05/16/18 07:02 Folate 5.39 ng/mL (7.3-26.0) L 05/16/18 07:02 TSH 3.180 mlU/mL (0.270-4.200) 05/14/18 05:05 PTH Intact 65.37 pg/mL (15-65) H 05/14/18 05:05 Urine Color Maria [place] Rosario (Yellow) 05/27/18 Unknown Urine Turbidity Cloudy (Clear) 05/27/18 Unknown Urine pH 5.0 (5.0-7.0) 05/27/18 Unknown Ur Specific Anita 1.026 (1.003-1.030) 05/27/18 Unknown Urine Protein 100 mg/dl mg/dL (Negative) 05/27/18 Unknown Urine Glucose (UA) 50 mg/dL (Negative) 05/27/18 Unknown Urine Ketones Neg mg/dL (Negative) 05/27/18 Unknown Urine Blood Lg (Negative) 05/27/18 Unknown Urine Nitrite Neg (Negative) 05/27/18 Unknown Urine Bilirubin Neg (Negative) 05/27/18 Unknown Urine Urobilinogen < 2.0 mg/dL (<2.0) 05/27/18 Unknown Ur Leukocyte Esterase Mod (Negative) 05/27/18 Unknown Urine WBC (Auto) 120.0 /HPF (0.0-6.0) H 05/27/18 Unknown Urine RBC (Auto) 35.0 /HPF (0.0-6.0) 05/27/18 Unknown U Epithel Cells (Auto) 3.0 /HPF (0-13.0) 05/27/18 Unknown Urine Bacteria (Auto) 1+ /HPF (Negative) 05/27/18 Unknown Urine WBC Clumps Few /HPF 05/13/18 19:39 Urine Mucus Few /HPF 05/27/18 Unknown Urine Yeast (Budding) 2+ /HPF 05/21/18 15:30 Urine Creatinine 66.0 mg/dL (0.1-20.0) H 05/13/18 19:39 Urine Sodium 60 mmol/L 05/13/18 19:39 Urine Potassium 8.69 mmol/L 05/13/18 19:39 Urine Chloride 27.8 mmolL (110-250) L 05/13/18 19:39 Urine Total Protein 24 mg/dL (5-11.8) H 05/13/18 19:39 Vancomycin Trough 25.1 ug/mL (5.0-20.0) H 05/25/18 22:46 Random Vancomycin 34.3 ug/mL (0-40.0) 05/26/18 11:01 Urine Opiates Screen Presumptive negative 05/13/18 19:39 Urine Methadone Screen Presumptive negative 05/13/18 19:39 Ur Barbiturates Screen Presumptive negative 05/13/18 19:39 Ur Phencyclidine Scrn Presumptive negative 05/13/18 19:39 Ur Amphetamines Screen Presumptive negative 05/13/18 19:39 U Benzodiazepines Scrn Presumptive negative 05/13/18 19:39 Urine Cocaine Screen Presumptive negative 05/13/18 19:39 U Marijuana (THC) Screen Presumptive negative 05/13/18 19:39 Drugs of Abuse Note Disclamer 05/13/18 19:39 ZEUS Screen Negative (Negative) 05/14/18 05:05 Proteinase 3 (PR3) Ab <1.0 AI (<1.0) 05/14/18 05:05 Myeloperoxidase Ab <1.0 AI (<1.0) 05/14/18 05:05 Complement C3 147 mg/dL (82-185) 05/14/18 05:05 Complement C4 45 mg/dL (15-53) 05/14/18 05:05 Hep Bs Antigen Non-reactive (Negative) 05/27/18 13:41 Hep B Core IgM Ab Non-reactive (NonReactive) 05/27/18 13:41 Hepatitis C Antibody Non-reactive (NonReactive) 05/27/18 13:41 Blood Type O POSITIVE 05/22/18 11:23 Antibody Screen Negative 05/22/18 11:23 Crossmatch See Detail 05/22/18 11:23
--- NOTE | 2018-05-28 09:18 | Progress Note ---
Assessment and Plan 1. Acute kidney injury: Recurrent Acute kidney injury. Initial MARYLOU in the setting of bilateral hydronephrosis secondary to pelvic mass , now s/p bilateral nephrostomy. Patient required urgent hemodialysis yesterday due to worsening renal function and persistent hyperkalemia. HD today, orders placed. Renal prognosis is guarded. 2. Electrolytes: Hypernatremia, improving. Hyperkalemia, HD today. 3. Bowel obstruction: S/p ostomy. 4. Bilateral hydronephrosis: S/p bilateral nephrostomy. S/p Cysto and drainage of abscess. 5. Respiratory failure: On vent. 6. Hypotension: BP is improving. 7. Anemia. 8. Pelvic mass: Squamous cell Ca. Subjective Date of service: 05/28/18 Principal diagnosis: squamous cell ca - prostate bx - prelim report Interval history: Patient was seen and examined at the bedside. Objective - Vital Signs Vital signs: Vital Signs - 12hr 05/27/18 05/27/18 05/27/18 21:30 21:45 22:00 Temperature Pulse Rate 97 H 99 H 98 H Pulse Rate [ 90 From Monitor] Respiratory 20 22 22 Rate Blood Pressure 116/83 126/86 124/84 O2 Sat by Pulse 95 98 Oximetry O2 Sat by Pulse Oximetry [ Bilateral Throughout] 05/27/18 05/27/18 05/27/18 22:15 22:30 22:45 Temperature Pulse Rate 95 H 88 92 H Pulse Rate [ From Monitor] Respiratory 20 24 20 Rate Blood Pressure 130/92 128/89 132/94 O2 Sat by Pulse 98 98 97 Oximetry O2 Sat by Pulse Oximetry [ Bilateral Throughout] 05/27/18 05/27/18 05/27/18 23:00 23:10 23:15 Temperature 98.0 F Pulse Rate 92 H 87 94 H Pulse Rate [ From Monitor] Respiratory 22 18 18 Rate Blood Pressure 132/94 137/88 135/94 O2 Sat by Pulse 99 98 Oximetry O2 Sat by Pulse 99 Oximetry [ Bilateral Throughout] 05/27/18 05/27/18 05/27/18 23:16 23:20 23:30 Temperature 98.9 F Pulse Rate 93 H 88 Pulse Rate [ From Monitor] Respiratory 17 Rate Blood Pressure 135/94 138/88 O2 Sat by Pulse 99 96 Oximetry O2 Sat by Pulse Oximetry [ Bilateral Throughout] 05/27/18 05/27/18 05/27/18 23:44 23:45 23:48 Temperature Pulse Rate 86 85 93 H Pulse Rate [ From Monitor] Respiratory 20 17 22 Rate Blood Pressure 138/88 137/91 137/91 O2 Sat by Pulse 99 100 Oximetry O2 Sat by Pulse Oximetry [ Bilateral Throughout] 05/28/18 05/28/18 05/28/18 00:00 00:13 00:15 Temperature Pulse Rate 89 88 Pulse Rate [ 90 From Monitor] Respiratory 21 23 18 Rate Blood Pressure 141/95 141/90 O2 Sat by Pulse 99 96 Oximetry O2 Sat by Pulse Oximetry [ Bilateral Throughout] 05/28/18 05/28/18 05/28/18 00:30 00:45 01:00 Temperature Pulse Rate 88 88 88 Pulse Rate [ From Monitor] Respiratory 20 18 19 Rate Blood Pressure 142/94 130/91 137/92 O2 Sat by Pulse 96 97 95 Oximetry O2 Sat by Pulse Oximetry [ Bilateral Throughout] 05/28/18 05/28/18 05/28/18 01:15 01:30 01:45 Temperature Pulse Rate 94 H 91 H 89 Pulse Rate [ From Monitor] Respiratory 23 22 20 Rate Blood Pressure 142/95 141/93 131/86 O2 Sat by Pulse 95 95 Oximetry O2 Sat by Pulse Oximetry [ Bilateral Throughout] 05/28/18 05/28/18 05/28/18 02:00 02:15 02:30 Temperature Pulse Rate 92 H 91 H 89 Pulse Rate [ From Monitor] Respiratory 18 21 22 Rate Blood Pressure 131/86 137/87 133/89 O2 Sat by Pulse 95 97 Oximetry O2 Sat by Pulse Oximetry [ Bilateral Throughout] 05/28/18 05/28/18 05/28/18 02:45 03:00 03:15 Temperature Pulse Rate 96 H 94 H 91 H Pulse Rate [ From Monitor] Respiratory 22 24 20 Rate Blood Pressure 135/88 135/88 134/88 O2 Sat by Pulse 98 99 96 Oximetry O2 Sat by Pulse Oximetry [ Bilateral Throughout] 05/28/18 05/28/18 05/28/18 03:30 03:45 03:46 Temperature Pulse Rate 91 H 97 H 98 H Pulse Rate [ From Monitor] Respiratory 20 23 Rate Blood Pressure 136/92 130/92 130/92 O2 Sat by Pulse 98 96 99 Oximetry O2 Sat by Pulse Oximetry [ Bilateral Throughout] 05/28/18 05/28/18 05/28/18 03:50 04:00 04:15 Temperature 99.9 F H Pulse Rate 91 H 86 Pulse Rate [ 88 From Monitor] Respiratory 20 23 Rate Blood Pressure 124/87 127/85 O2 Sat by Pulse 96 96 Oximetry O2 Sat by Pulse Oximetry [ Bilateral Throughout] 05/28/18 05/28/18 05/28/18 04:30 04:36 04:46 Temperature Pulse Rate 92 H 97 H 98 H Pulse Rate [ From Monitor] Respiratory 17 20 Rate Blood Pressure 126/85 130/92 126/85 O2 Sat by Pulse 99 96 98 Oximetry O2 Sat by Pulse Oximetry [ Bilateral Throughout] 05/28/18 05/28/18 05/28/18 05:00 05:16 05:30 Temperature Pulse Rate 123 H 98 H 94 H Pulse Rate [ 88 From Monitor] Respiratory 31 H 20 17 Rate Blood Pressure 126/85 126/85 126/85 O2 Sat by Pulse 94 94 95 Oximetry O2 Sat by Pulse Oximetry [ Bilateral Throughout] 05/28/18 05/28/18 05/28/18 05:36 05:45 06:00 Temperature Pulse Rate 91 H 93 H 87 Pulse Rate [ From Monitor] Respiratory 22 22 Rate Blood Pressure 126/85 125/83 125/83 O2 Sat by Pulse 95 96 Oximetry O2 Sat by Pulse Oximetry [ Bilateral Throughout] 05/28/18 05/28/18 05/28/18 06:16 06:30 06:46 Temperature Pulse Rate 90 88 93 H Pulse Rate [ From Monitor] Respiratory 22 20 23 Rate Blood Pressure 122/83 122/83 122/83 O2 Sat by Pulse 97 97 96 Oximetry O2 Sat by Pulse Oximetry [ Bilateral Throughout] 05/28/18 05/28/18 05/28/18 07:00 07:13 07:16 Temperature Pulse Rate 94 H 92 H 96 H Pulse Rate [ From Monitor] Respiratory 23 21 Rate Blood Pressure 122/83 122/83 122/83 O2 Sat by Pulse 97 97 97 Oximetry O2 Sat by Pulse Oximetry [ Bilateral Throughout] 05/28/18 05/28/18 05/28/18 07:30 07:46 08:00 Temperature 97.6 F Pulse Rate 95 H 95 H 89 Pulse Rate [ 89 From Monitor] Respiratory 23 22 17 Rate Blood Pressure 122/83 122/83 122/83 O2 Sat by Pulse 97 97 97 Oximetry O2 Sat by Pulse Oximetry [ Bilateral Throughout] 05/28/18 05/28/18 05/28/18 08:16 08:30 08:46 Temperature Pulse Rate 89 89 92 H Pulse Rate [ From Monitor] Respiratory 20 22 19 Rate Blood Pressure 122/83 122/83 122/83 O2 Sat by Pulse 97 97 98 Oximetry O2 Sat by Pulse Oximetry [ Bilateral Throughout] - General Appearance General appearance: well-developed, appears stated age, intubated, other (on vent, FiO2 40%) EENT: ATNC, PERRL Neck: supple Respiratory: Present: Clear to Ascultation Cardiology: regular, S1S2, no murmurs Gastrointestinal: normoactive bowel sounds, distended, other (ostomy and drain noted, bilateral nephrostomy noted) Integumentary: no rash Neurologic: other (follws command, able to move all 4 extremities) Musculoskeletal: other (no edema) Psychiatric: cooperative - Lab 05/28/18 05:00 05/28/18 05:00 Most recent lab results Calcium 8.0 mg/dL (8.4-10.2) L D 05/28/18 05:00 Phosphorus 6.80 mg/dL (2.5-4.5) H D 05/28/18 05:00 Magnesium 1.90 mg/dL (1.7-2.3) 05/28/18 05:00 Urine Creatinine 66.0 mg/dL (0.1-20.0) H 05/13/18 19:39 Urine Sodium 60 mmol/L 05/13/18 19:39 Urine Total Protein 24 mg/dL (5-11.8) H 05/13/18 19:39
[2018-05-28] MEDS ORDERED: NACL 0.9% 100 ML IV PRN (09:24)
[2018-05-28] MEDS ORDERED: LEVAQUIN 500MG/100ML 500 MG/100 ML BAG IV SCH (10:00)
--- NOTE | 2018-05-28 10:24 | Progress Note ---
Assessment and Plan Acute hypoxemic respiratory failure, possibly secondary to 2. Bilateral pneumonia, possibly aspiration. Sepsis syndrome. 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 Acute deep venous thrombosis. Hypertensive urgency. Hyperkalemia, now resolved. Moderate to severe protein calorie malnutrition Hypernatremia. Hypochloremia. Anemia, normocytic. (ABLA) - continue supplemental oxygen to keep sats > 90% - VAP bundle addressed - continue bronchodilators with pulmonary hygiene per RT - HD/UF for toxin and volume clearance - Begin daily SBT' in am - daily SAT's - continue anti-infective's per ID recs (Cefepime, Zyvox, flagyl) - continue TPN for now (enteral nutrition once cleared by surgery) - Malignancy per heme-oncologist - continue mobility protocol for pressure ulcer prophylaxis - s/p surgery 05/26 (had ex-lap; matted abdominal organs, pus - Enterostomy tube decompression,loop colostomy and large triple lumen sump drainage of pelvis) - s/p bilateral nephrostomy tubes placed 05/14/[address] Freeman. - hold VTE anticoagulation till ok with urologist, surgeon (CTA negative for P.E.) - continue other care per attending / other consultants - consider paracentesis - continue other care per attending / other consultants The high probability of a clinically significant, sudden or life threatening deterioration of the [respiratory,cardiac, urologic and renal] system(s) required my full and direct attention, intervention and personal management. The aggregate critical care time was [38] minutes without overlap. Time includes spent on; [x] Data Review and interpretation [x] Patient assessment and monitoring of vital signs [x] Documentation [x] Medication orders and management Subjective Date of service: 05/28/18 Principal diagnosis: Acute Hypoxemic Resp Failure; Sepsis Syndrome; Acute VTE; Prostate Cancer Interval history: Patient is seen today for: Acute Hypoxemic Resp Failure; Sepsis Syndrome; Acute VTE; Prostate Cancer Seen and examined at bedside; 24hour events reviewed; nursing and respiratory care staff consulted; no adverse overnight events reported to me; resting peacefully; Dialysis ongoing at time of my visit; clean urine seen in nephrostomy bags; denies acute chest pains or increased SOB; No emesis or overt aspiration Objective Vital Signs - 12hr 05/27/18 05/27/18 05/27/18 22:30 22:45 23:00 Temperature Pulse Rate 88 92 H 92 H Pulse Rate [ From Monitor] Respiratory 24 20 22 Rate Blood Pressure 128/89 132/94 132/94 O2 Sat by Pulse 98 97 99 Oximetry O2 Sat by Pulse Oximetry [ Bilateral Throughout] 05/27/18 05/27/18 05/27/18 23:10 23:15 23:16 Temperature 98.0 F 98.9 F Pulse Rate 87 94 H Pulse Rate [ From Monitor] Respiratory 18 18 Rate Blood Pressure 137/88 135/94 O2 Sat by Pulse 98 Oximetry O2 Sat by Pulse 99 Oximetry [ Bilateral Throughout] 05/27/18 05/27/18 05/27/18 23:20 23:30 23:44 Temperature Pulse Rate 93 H 88 86 Pulse Rate [ From Monitor] Respiratory 17 20 Rate Blood Pressure 135/94 138/88 138/88 O2 Sat by Pulse 99 96 99 Oximetry O2 Sat by Pulse Oximetry [ Bilateral Throughout] 05/27/18 05/27/18 05/28/18 23:45 23:48 00:00 Temperature Pulse Rate 85 93 H 89 Pulse Rate [ 90 From Monitor] Respiratory 17 22 21 Rate Blood Pressure 137/91 137/91 141/95 O2 Sat by Pulse 100 99 Oximetry O2 Sat by Pulse Oximetry [ Bilateral Throughout] 05/28/18 05/28/18 05/28/18 00:13 00:15 00:30 Temperature Pulse Rate 88 88 Pulse Rate [ From Monitor] Respiratory 23 18 20 Rate Blood Pressure 141/90 142/94 O2 Sat by Pulse 96 96 Oximetry O2 Sat by Pulse Oximetry [ Bilateral Throughout] 05/28/18 05/28/18 05/28/18 00:45 01:00 01:15 Temperature Pulse Rate 88 88 94 H Pulse Rate [ From Monitor] Respiratory 18 19 23 Rate Blood Pressure 130/91 137/92 142/95 O2 Sat by Pulse 97 95 95 Oximetry O2 Sat by Pulse Oximetry [ Bilateral Throughout] 05/28/18 05/28/18 05/28/18 01:30 01:45 02:00 Temperature Pulse Rate 91 H 89 92 H Pulse Rate [ From Monitor] Respiratory 22 20 18 Rate Blood Pressure 141/93 131/86 131/86 O2 Sat by Pulse 95 95 Oximetry O2 Sat by Pulse Oximetry [ Bilateral Throughout] 05/28/18 05/28/18 05/28/18 02:15 02:30 02:45 Temperature Pulse Rate 91 H 89 96 H Pulse Rate [ From Monitor] Respiratory 21 22 22 Rate Blood Pressure 137/87 133/89 135/88 O2 Sat by Pulse 97 98 Oximetry O2 Sat by Pulse Oximetry [ Bilateral Throughout] 05/28/18 05/28/18 05/28/18 03:00 03:15 03:30 Temperature Pulse Rate 94 H 91 H 91 H Pulse Rate [ From Monitor] Respiratory 24 20 20 Rate Blood Pressure 135/88 134/88 136/92 O2 Sat by Pulse 99 96 98 Oximetry O2 Sat by Pulse Oximetry [ Bilateral Throughout] 05/28/18 05/28/18 05/28/18 03:45 03:46 03:50 Temperature 99.9 F H Pulse Rate 97 H 98 H Pulse Rate [ From Monitor] Respiratory 23 Rate Blood Pressure 130/92 130/92 O2 Sat by Pulse 96 99 Oximetry O2 Sat by Pulse Oximetry [ Bilateral Throughout] 05/28/18 05/28/18 05/28/18 04:00 04:15 04:30 Temperature Pulse Rate 91 H 86 92 H Pulse Rate [ 88 From Monitor] Respiratory 20 23 17 Rate Blood Pressure 124/87 127/85 126/85 O2 Sat by Pulse 96 96 99 Oximetry O2 Sat by Pulse Oximetry [ Bilateral Throughout] 05/28/18 05/28/18 05/28/18 04:36 04:46 05:00 Temperature Pulse Rate 97 H 98 H 123 H Pulse Rate [ From Monitor] Respiratory 20 31 H Rate Blood Pressure 130/92 126/85 126/85 O2 Sat by Pulse 96 98 94 Oximetry O2 Sat by Pulse Oximetry [ Bilateral Throughout] 05/28/18 05/28/18 05/28/18 05:16 05:30 05:36 Temperature Pulse Rate 98 H 94 H 91 H Pulse Rate [ 88 From Monitor] Respiratory 20 17 Rate Blood Pressure 126/85 126/85 126/85 O2 Sat by Pulse 94 95 Oximetry O2 Sat by Pulse Oximetry [ Bilateral Throughout] 05/28/18 05/28/18 05/28/18 05:45 06:00 06:16 Temperature Pulse Rate 93 H 87 90 Pulse Rate [ From Monitor] Respiratory 22 22 22 Rate Blood Pressure 125/83 125/83 122/83 O2 Sat by Pulse 95 96 97 Oximetry O2 Sat by Pulse Oximetry [ Bilateral Throughout] 05/28/18 05/28/18 05/28/18 06:30 06:46 07:00 Temperature Pulse Rate 88 93 H 94 H Pulse Rate [ From Monitor] Respiratory 20 23 23 Rate Blood Pressure 122/83 122/83 122/83 O2 Sat by Pulse 97 96 97 Oximetry O2 Sat by Pulse Oximetry [ Bilateral Throughout] 05/28/18 05/28/18 05/28/18 07:13 07:16 07:30 Temperature Pulse Rate 92 H 96 H 95 H Pulse Rate [ From Monitor] Respiratory 21 23 Rate Blood Pressure 122/83 122/83 122/83 O2 Sat by Pulse 97 97 97 Oximetry O2 Sat by Pulse Oximetry [ Bilateral Throughout] 05/28/18 05/28/18 05/28/18 07:46 08:00 08:16 Temperature 97.6 F Pulse Rate 95 H 89 89 Pulse Rate [ 89 From Monitor] Respiratory 22 17 20 Rate Blood Pressure 122/83 122/83 122/83 O2 Sat by Pulse 97 97 97 Oximetry O2 Sat by Pulse Oximetry [ Bilateral Throughout] 05/28/18 05/28/18 08:30 08:46 Temperature Pulse Rate 89 92 H Pulse Rate [ From Monitor] Respiratory 22 19 Rate Blood Pressure 122/83 122/83 O2 Sat by Pulse 97 98 Oximetry O2 Sat by Pulse Oximetry [ Bilateral Throughout] Constitutional: alert, other (chronically ill looking middle aged AAM, normocephalic and atraumatic) Eyes: non-icteric ENT: oropharynx moist, other (ETT 23 cm BEATRIS) Neck: supple, no lymphadenopathy, no JVD, other (no thyromegaly) Effort: mildly labored Ascultation: Bilateral: diminished breath sounds, rhonchi (scant in bases) Percussion: Bilateral: not dull Cardiovascular: regular rate and rhythm, other (No R/M) Gastrointestinal: hypoactive bowel sounds, soft, tender (mild), other (Distended ; No palpable HSM) Integumentary: other (poor turgor) Extremities: no cyanosis, no edema, pulses normal, no ischemia or petechiae Neurologic: non-focal exam, pupils equal and round, CN II-XII normal, other ( weak) Psychiatric: mood appropriate, affect normal CBC and BMP: 05/28/18 05:00 05/28/18 05:00 ABG, PT/INR, D-dimer: ABG POC ABG pH 7.390 (7.35-7.45) 05/28/18 04:32 POC ABG pCO2 43.8 (35-45) 05/28/18 04:32 POC ABG pO2 134 (80-105) H 05/28/18 04:32 POC ABG HCO3 26.5 05/28/18 04:32 POC ABG Total CO2 28 05/28/18 04:32 POC ABG O2 Sat 99 05/28/18 04:32 PT/INR, D-dimer PT 18.3 Sec. (12.2-14.9) H 05/23/18 09:03 INR 1.43 (0.87-1.13) H 05/23/18 09:03 Abnormal lab findings: Abnormal Labs 05/13/18 05/13/18 05/13/18 04:27 04:27 19:39 WBC RBC 3.13 L Hgb 9.4 L Hct 26.8 L MCHC 35 H RDW Lymph % (Auto) [place] % (Auto) 9.6 H Lymph # [place] # Seg Neutrophils % Seg Neuts % (Manual) Lymphocytes % (Manual) Seg Neutrophils # Seg Neutrophils # Man Lymphocytes # (Manual) PT INR APTT POC ABG pH POC ABG pCO2 POC ABG pO2 Sodium 132 L Potassium 5.5 H Chloride 94.1 L Carbon Dioxide 19 L BUN 72 H Creatinine 14.4 H Glucose POC Glucose Lactic Acid Calcium Phosphorus Magnesium Iron TIBC AST ALT Alkaline Phosphatase Total Creatine Kinase C-Reactive Protein Total Protein Albumin 2.8 L Folate PTH Intact Urine WBC (Auto) Urine Creatinine 66.0 H Urine Chloride 27.8 L Urine Total Protein 24 H Vancomycin Trough Crossmatch 05/13/18 05/14/18 05/14/18 20:00 05:05 05:05 WBC RBC Hgb Hct MCHC RDW Lymph % (Auto) [place] % (Auto) Lymph # [place] # Seg Neutrophils % Seg Neuts % (Manual) Lymphocytes % (Manual) Seg Neutrophils # Seg Neutrophils # Man Lymphocytes # (Manual) PT INR APTT POC ABG pH POC ABG pCO2 POC ABG pO2 Sodium 132 L 131 L Potassium 5.2 H 5.8 H Chloride 93.0 L 95.6 L Carbon Dioxide 19 L 20 L BUN 74 H 81 H Creatinine 15.0 H 16.6 H Glucose 134 H 127 H POC Glucose Lactic Acid Calcium 8.2 L 7.9 L Phosphorus 6.30 H Magnesium Iron TIBC AST ALT Alkaline Phosphatase Total Creatine Kinase 236 H C-Reactive Protein Total Protein Albumin Folate PTH Intact 65.37 H Urine WBC (Auto) Urine Creatinine Urine Chloride Urine Total Protein Vancomycin Trough Crossmatch 05/14/18 05/14/18 05/14/18 09:28 10:56 13:29 WBC RBC Hgb Hct MCHC RDW Lymph % (Auto) [place] % (Auto) Lymph # [place] # Seg Neutrophils % Seg Neuts % (Manual) Lymphocytes % (Manual) Seg Neutrophils # Seg Neutrophils # Man Lymphocytes # (Manual) PT INR APTT 38.2 H POC ABG pH POC ABG pCO2 POC ABG pO2 Sodium Potassium Chloride Carbon Dioxide BUN Creatinine Glucose POC Glucose 127 H 126 H Lactic Acid Calcium Phosphorus Magnesium Iron TIBC AST ALT Alkaline Phosphatase Total Creatine Kinase C-Reactive Protein Total Protein Albumin Folate PTH Intact Urine WBC (Auto) Urine Creatinine Urine Chloride Urine Total Protein Vancomycin Trough Crossmatch 05/15/18 05/15/18 05/16/18 08:06 08:06 07:02 WBC RBC 2.84 L 2.74 L Hgb 8.5 L 8.5 L Hct 24.2 L 23.5 L MCHC 35 H 36 H RDW Lymph % (Auto) [place] % (Auto) 10.4 H 11.0 H Lymph # 1.1 L [place] # 0.9 H Seg Neutrophils % 72.6 H Seg Neuts % (Manual) Lymphocytes % (Manual) Seg Neutrophils # Seg Neutrophils # Man Lymphocytes # (Manual) PT INR APTT POC ABG pH POC ABG pCO2 POC ABG pO2 Sodium Potassium Chloride Carbon Dioxide 19 L BUN 66 H Creatinine 12.0 H Glucose 115 H POC Glucose Lactic Acid Calcium 8.1 L Phosphorus Magnesium Iron TIBC AST ALT Alkaline Phosphatase Total Creatine Kinase C-Reactive Protein Total Protein Albumin Folate PTH Intact Urine WBC (Auto) Urine Creatinine Urine Chloride Urine Total Protein Vancomycin Trough Crossmatch 05/16/18 05/16/18 05/17/18 07:02 07:02 05:08 WBC RBC 2.78 L Hgb 8.2 L Hct 23.9 L MCHC RDW Lymph % (Auto) [place] % (Auto) 13.9 H Lymph # [place] # 0.9 H Seg Neutrophils % Seg Neuts % (Manual) Lymphocytes % (Manual) Seg Neutrophils # Seg Neutrophils # Man Lymphocytes # (Manual) PT INR APTT POC ABG pH POC ABG pCO2 POC ABG pO2 Sodium Potassium Chloride Carbon Dioxide BUN 28 H Creatinine 2.4 H D Glucose POC Glucose Lactic Acid Calcium 8.3 L Phosphorus Magnesium 1.50 L Iron 24 L TIBC 160 L AST ALT Alkaline Phosphatase Total Creatine Kinase C-Reactive Protein Total Protein Albumin Folate 5.39 L PTH Intact Urine WBC (Auto) Urine Creatinine Urine Chloride Urine Total Protein Vancomycin Trough Crossmatch 05/17/18 05/18/18 05/18/18 05:08 05:57 05:57 WBC RBC 2.79 L Hgb 8.3 L Hct 24.0 L MCHC 35 H RDW Lymph % (Auto) [place] % (Auto) 11.8 H Lymph # [place] # 0.9 H Seg Neutrophils % Seg Neuts % (Manual) Lymphocytes % (Manual) Seg Neutrophils # Seg Neutrophils # Man Lymphocytes # (Manual) PT INR APTT POC ABG pH POC ABG pCO2 POC ABG pO2 Sodium Potassium Chloride Carbon Dioxide BUN Creatinine Glucose POC Glucose Lactic Acid Calcium 7.7 L 8.0 L Phosphorus Magnesium 1.60 L Iron TIBC AST ALT Alkaline Phosphatase Total Creatine Kinase C-Reactive Protein Total Protein Albumin Folate PTH Intact Urine WBC (Auto) Urine Creatinine Urine Chloride Urine Total Protein Vancomycin Trough Crossmatch 05/19/18 05/19/18 05/20/18 05:33 05:33 05:38 WBC RBC 2.95 L Hgb 8.8 L Hct 25.8 L MCHC RDW Lymph % (Auto) 10.1 L [place] % (Auto) Lymph # 1.1 L [place] # Seg Neutrophils % 85.2 H Seg Neuts % (Manual) Lymphocytes % (Manual) Seg Neutrophils # 9.0 H Seg Neutrophils # Man Lymphocytes # (Manual) PT INR APTT POC ABG pH POC ABG pCO2 POC ABG pO2 Sodium 135 L Potassium Chloride Carbon Dioxide BUN Creatinine Glucose 132 H POC Glucose Lactic Acid Calcium 7.8 L 8.3 L Phosphorus Magnesium 1.40 L Iron TIBC AST ALT Alkaline Phosphatase Total Creatine Kinase C-Reactive Protein Total Protein Albumin Folate PTH Intact Urine WBC (Auto) Urine Creatinine Urine Chloride Urine Total Protein Vancomycin Trough Crossmatch 05/21/18 05/21/18 05/22/18 04:46 15:30 06:49 WBC 20.0 H RBC 2.70 L Hgb 7.8 L Hct 23.3 L MCHC RDW Lymph % (Auto) [place] % (Auto) Lymph # [place] # Seg Neutrophils % Seg Neuts % (Manual) 85.0 H Lymphocytes % (Manual) 4.0 L Seg Neutrophils # Seg Neutrophils # Man 17.0 H Lymphocytes # (Manual) 0.8 L PT INR APTT POC ABG pH POC ABG pCO2 POC ABG pO2 Sodium 135 L Potassium 3.5 L Chloride Carbon Dioxide 21 L BUN 22 H Creatinine Glucose POC Glucose Lactic Acid Calcium 8.1 L Phosphorus Magnesium Iron TIBC AST ALT Alkaline Phosphatase Total Creatine Kinase C-Reactive Protein Total Protein Albumin Folate PTH Intact Urine WBC (Auto) 28.0 H Urine Creatinine Urine Chloride Urine Total Protein Vancomycin Trough Crossmatch 05/22/18 05/22/18 05/23/18 06:49 11:23 09:03 WBC RBC Hgb Hct MCHC RDW Lymph % (Auto) [place] % (Auto) Lymph # [place] # Seg Neutrophils % Seg Neuts % (Manual) Lymphocytes % (Manual) Seg Neutrophils # Seg Neutrophils # Man Lymphocytes # (Manual) PT INR APTT POC ABG pH POC ABG pCO2 POC ABG pO2 Sodium 134 L Potassium 3.5 L Chloride Carbon Dioxide 21 L BUN 35 H 36 H Creatinine 1.7 H Glucose 107 H POC Glucose Lactic Acid Calcium 7.9 L Phosphorus Magnesium 2.50 H Iron TIBC AST ALT Alkaline Phosphatase Total Creatine Kinase C-Reactive Protein Total Protein Albumin Folate PTH Intact Urine WBC (Auto) Urine Creatinine Urine Chloride Urine Total Protein Vancomycin Trough Crossmatch See Detail 05/23/18 05/23/18 05/23/18 09:03 09:03 17:34 WBC 26.3 H RBC 3.57 L Hgb 10.4 L Hct 31.1 L D MCHC RDW Lymph % (Auto) [place] % (Auto) Lymph # [place] # Seg Neutrophils % Seg Neuts % (Manual) Lymphocytes % (Manual) Seg Neutrophils # Seg Neutrophils # Man Lymphocytes # (Manual) PT 18.3 H INR 1.43 H APTT 40.0 H POC ABG pH POC ABG pCO2 POC ABG pO2 Sodium Potassium Chloride Carbon Dioxide BUN Creatinine Glucose POC Glucose 108 H Lactic Acid Calcium Phosphorus Magnesium Iron TIBC AST ALT Alkaline Phosphatase Total Creatine Kinase C-Reactive Protein Total Protein Albumin Folate PTH Intact Urine WBC (Auto) Urine Creatinine Urine Chloride Urine Total Protein Vancomycin Trough Crossmatch 05/23/18 05/24/18 05/24/18 21:14 04:43 08:04 WBC RBC Hgb Hct MCHC RDW Lymph % (Auto) [place] % (Auto) Lymph # [place] # Seg Neutrophils % Seg Neuts % (Manual) Lymphocytes % (Manual) Seg Neutrophils # Seg Neutrophils # Man Lymphocytes # (Manual) PT INR APTT POC ABG pH POC ABG pCO2 POC ABG pO2 Sodium 146 H Potassium Chloride 108.6 H Carbon Dioxide BUN 33 H Creatinine Glucose 109 H POC Glucose 110 H 106 H Lactic Acid Calcium 8.3 L Phosphorus Magnesium 2.50 H Iron TIBC AST ALT Alkaline Phosphatase Total Creatine Kinase C-Reactive Protein Total Protein Albumin Folate PTH Intact Urine WBC (Auto) Urine Creatinine Urine Chloride Urine Total Protein Vancomycin Trough Crossmatch 05/25/18 05/25/18 05/25/18 05:42 05:49 19:50 WBC RBC Hgb Hct MCHC RDW Lymph % (Auto) [place] % (Auto) Lymph # [place] # Seg Neutrophils % Seg Neuts % (Manual) Lymphocytes % (Manual) Seg Neutrophils # Seg Neutrophils # Man Lymphocytes # (Manual) PT INR APTT POC ABG pH POC ABG pCO2 POC ABG pO2 Sodium 150 H Potassium Chloride 112.5 H Carbon Dioxide BUN 34 H Creatinine Glucose 102 H POC Glucose 107 H Lactic Acid Calcium Phosphorus Magnesium Iron TIBC AST ALT Alkaline Phosphatase Total Creatine Kinase C-Reactive Protein 34.50 H Total Protein Albumin Folate PTH Intact Urine WBC (Auto) Urine Creatinine Urine Chloride Urine Total Protein Vancomycin Trough Crossmatch 05/25/18 05/25/18 05/25/18 19:50 21:05 22:46 WBC RBC Hgb Hct MCHC RDW Lymph % (Auto) [place] % (Auto) Lymph # [place] # Seg Neutrophils % Seg Neuts % (Manual) Lymphocytes % (Manual) Seg Neutrophils # Seg Neutrophils # Man Lymphocytes # (Manual) PT INR APTT POC ABG pH 7.483 H POC ABG pCO2 24.0 L POC ABG pO2 72 L Sodium Potassium Chloride Carbon Dioxide BUN Creatinine Glucose POC Glucose Lactic Acid 5.90 H* Calcium Phosphorus Magnesium Iron TIBC AST ALT Alkaline Phosphatase Total Creatine Kinase C-Reactive Protein Total Protein Albumin Folate PTH Intact Urine WBC (Auto) Urine Creatinine Urine Chloride Urine Total Protein Vancomycin Trough 25.1 H Crossmatch 05/25/18 05/26/18 05/26/18 22:46 00:21 00:51 WBC RBC Hgb Hct MCHC RDW Lymph % (Auto) [place] % (Auto) Lymph # [place] # Seg Neutrophils % Seg Neuts % (Manual) Lymphocytes % (Manual) Seg Neutrophils # Seg Neutrophils # Man Lymphocytes # (Manual) PT INR APTT POC ABG pH POC ABG pCO2 POC ABG pO2 Sodium Potassium Chloride Carbon Dioxide BUN Creatinine Glucose POC Glucose 133 H Lactic Acid 8.10 H* 6.20 H* Calcium Phosphorus Magnesium Iron TIBC AST ALT Alkaline Phosphatase Total Creatine Kinase C-Reactive Protein Total Protein Albumin Folate PTH Intact Urine WBC (Auto) Urine Creatinine Urine Chloride Urine Total Protein Vancomycin Trough Crossmatch 05/26/18 05/26/18 05/26/18 01:13 02:24 02:24 WBC 18.7 H RBC Hgb 11.6 L Hct MCHC RDW Lymph % (Auto) [place] % (Auto) Lymph # [place] # Seg Neutrophils % Seg Neuts % (Manual) Lymphocytes % (Manual) Seg Neutrophils # Seg Neutrophils # Man Lymphocytes # (Manual) PT INR APTT POC ABG pH POC ABG pCO2 POC ABG pO2 Sodium 147 H Potassium 6.2 H* D Chloride 111.9 H Carbon Dioxide 19 L BUN 80 H Creatinine 5.1 H D Glucose 112 H POC Glucose Lactic Acid 5.20 H* Calcium 6.7 L D Phosphorus Magnesium Iron TIBC AST ALT Alkaline Phosphatase Total Creatine Kinase C-Reactive Protein Total Protein Albumin Folate PTH Intact Urine WBC (Auto) Urine Creatinine Urine Chloride Urine Total Protein Vancomycin Trough Crossmatch 05/26/18 05/26/18 05/26/18 04:20 04:20 05:39 WBC RBC Hgb Hct MCHC RDW Lymph % (Auto) [place] % (Auto) Lymph # [place] # Seg Neutrophils % Seg Neuts % (Manual) Lymphocytes % (Manual) Seg Neutrophils # Seg Neutrophils # Man Lymphocytes # (Manual) PT INR APTT POC ABG pH POC ABG pCO2 POC ABG pO2 Sodium 150 H Potassium Chloride 110.0 H Carbon Dioxide 19 L BUN 66 H Creatinine Glucose 166 H POC Glucose 187 H Lactic Acid 5.10 H* Calcium 6.9 L Phosphorus 6.70 H D Magnesium Iron TIBC AST ALT Alkaline Phosphatase Total Creatine Kinase C-Reactive Protein Total Protein Albumin Folate PTH Intact Urine WBC (Auto) Urine Creatinine Urine Chloride Urine Total Protein Vancomycin Trough Crossmatch 05/26/18 05/26/18 05/26/18 06:02 07:29 11:00 WBC RBC Hgb Hct MCHC RDW Lymph % (Auto) [place] % (Auto) Lymph # [place] # Seg Neutrophils % Seg Neuts % (Manual) Lymphocytes % (Manual) Seg Neutrophils # Seg Neutrophils # Man Lymphocytes # (Manual) PT INR APTT POC ABG pH POC ABG pCO2 28.8 L POC ABG pO2 Sodium Potassium Chloride Carbon Dioxide BUN Creatinine Glucose POC Glucose Lactic Acid 4.80 H* 3.80 H* Calcium Phosphorus Magnesium Iron TIBC AST ALT Alkaline Phosphatase Total Creatine Kinase C-Reactive Protein Total Protein Albumin Folate PTH Intact Urine WBC (Auto) Urine Creatinine Urine Chloride Urine Total Protein Vancomycin Trough Crossmatch 05/26/18 05/26/18 05/26/18 11:01 12:28 18:00 WBC RBC Hgb Hct MCHC RDW Lymph % (Auto) [place] % (Auto) Lymph # [place] # Seg Neutrophils % Seg Neuts % (Manual) Lymphocytes % (Manual) Seg Neutrophils # Seg Neutrophils # Man Lymphocytes # (Manual) PT INR APTT POC ABG pH POC ABG pCO2 POC ABG pO2 Sodium 150 H 151 H Potassium 5.3 H D 6.1 H* Chloride 110.3 H 117.0 H Carbon Dioxide 21 L 20 L BUN 75 H 77 H Creatinine 4.3 H D 4.6 H Glucose 161 H POC Glucose 114 H Lactic Acid Calcium 7.5 L 6.7 L Phosphorus Magnesium Iron TIBC AST 1041 H ALT 406 H Alkaline Phosphatase 281 H Total Creatine Kinase C-Reactive Protein Total Protein 4.4 L Albumin 1.3 L Folate PTH Intact Urine WBC (Auto) Urine Creatinine Urine Chloride Urine Total Protein Vancomycin Trough Crossmatch 05/26/18 05/26/18 05/27/18 18:02 19:17 01:01 WBC 21.7 H RBC 2.70 L Hgb 7.8 L D Hct 24.6 L D MCHC RDW 15.3 H Lymph % (Auto) [place] % (Auto) Lymph # [place] # Seg Neutrophils % Seg Neuts % (Manual) 94.0 H Lymphocytes % (Manual) 3.0 L Seg Neutrophils # Seg Neutrophils # Man 20.4 H Lymphocytes # (Manual) 0.7 L PT INR APTT POC ABG pH 7.159 L 7.205 L POC ABG pCO2 54.5 H 53.0 H POC ABG pO2 252 H Sodium Potassium Chloride Carbon Dioxide BUN Creatinine Glucose POC Glucose Lactic Acid Calcium Phosphorus Magnesium Iron TIBC AST ALT Alkaline Phosphatase Total Creatine Kinase C-Reactive Protein Total Protein Albumin Folate PTH Intact Urine WBC (Auto) Urine Creatinine Urine Chloride Urine Total Protein Vancomycin Trough Crossmatch 05/27/18 05/27/18 05/27/18 05:15 05:15 06:11 WBC 24.9 H RBC 2.86 L Hgb 8.1 L Hct 25.9 L MCHC RDW 15.5 H Lymph % (Auto) [place] % (Auto) Lymph # [place] # Seg Neutrophils % Seg Neuts % (Manual) Lymphocytes % (Manual) Seg Neutrophils # Seg Neutrophils # Man Lymphocytes # (Manual) PT INR APTT POC ABG pH 7.265 L POC ABG pCO2 46.2 H POC ABG pO2 111 H Sodium 149 H Potassium 6.9 H* Chloride 113.5 H Carbon Dioxide BUN 89 H Creatinine 5.2 H Glucose 118 H POC Glucose Lactic Acid Calcium 7.0 L Phosphorus 9.70 H D Magnesium Iron TIBC AST 876 H ALT 408 H Alkaline Phosphatase Total Creatine Kinase C-Reactive Protein Total Protein 5.2 L Albumin 1.5 L Folate PTH Intact Urine WBC (Auto) Urine Creatinine Urine Chloride Urine Total Protein Vancomycin Trough Crossmatch 05/27/18 05/27/18 05/27/18 08:48 10:22 10:22 WBC RBC Hgb Hct MCHC RDW Lymph % (Auto) [place] % (Auto) Lymph # [place] # Seg Neutrophils % Seg Neuts % (Manual) Lymphocytes % (Manual) Seg Neutrophils # Seg Neutrophils # Man Lymphocytes # (Manual) PT INR APTT POC ABG pH POC ABG pCO2 POC ABG pO2 Sodium 146 H Potassium 6.1 H* Chloride 108.2 H Carbon Dioxide 21 L BUN 88 H Creatinine 5.6 H Glucose 163 H POC Glucose 164 H Lactic Acid Calcium 6.7 L Phosphorus Magnesium Iron TIBC AST ALT Alkaline Phosphatase Total Creatine Kinase C-Reactive Protein 40.70 H Total Protein Albumin Folate PTH Intact Urine WBC (Auto) Urine Creatinine Urine Chloride Urine Total Protein Vancomycin Trough Crossmatch 05/27/18 05/27/18 05/27/18 17:39 23:27 Unknown WBC RBC Hgb Hct MCHC RDW Lymph % (Auto) [place] % (Auto) Lymph # [place] # Seg Neutrophils % Seg Neuts % (Manual) Lymphocytes % (Manual) Seg Neutrophils # Seg Neutrophils # Man Lymphocytes # (Manual) PT INR APTT POC ABG pH POC ABG pCO2 POC ABG pO2 Sodium Potassium Chloride Carbon Dioxide BUN Creatinine Glucose POC Glucose 59 L 132 H Lactic Acid Calcium Phosphorus Magnesium Iron TIBC AST ALT Alkaline Phosphatase Total Creatine Kinase C-Reactive Protein Total Protein Albumin Folate PTH Intact Urine WBC (Auto) 120.0 H Urine Creatinine Urine Chloride Urine Total Protein Vancomycin Trough Crossmatch 05/28/18 05/28/18 05/28/18 04:32 05:00 05:00 WBC 26.5 H RBC 2.69 L Hgb 7.7 L Hct 23.6 L MCHC RDW Lymph % (Auto) [place] % (Auto) Lymph # [place] # Seg Neutrophils % Seg Neuts % (Manual) 96.0 H Lymphocytes % (Manual) 0 L Seg Neutrophils # Seg Neutrophils # Man 25.4 H Lymphocytes # (Manual) 0.0 L PT INR APTT POC ABG pH POC ABG pCO2 POC ABG pO2 134 H Sodium Potassium Chloride Carbon Dioxide BUN 69 H Creatinine 4.4 H Glucose 118 H POC Glucose Lactic Acid Calcium 8.0 L D Phosphorus 6.80 H D Magnesium Iron TIBC AST ALT Alkaline Phosphatase Total Creatine Kinase C-Reactive Protein Total Protein Albumin Folate PTH Intact Urine WBC (Auto) Urine Creatinine Urine Chloride Urine Total Protein Vancomycin Trough Crossmatch 05/28/18 05:27 WBC RBC Hgb Hct MCHC RDW Lymph % (Auto) [place] % (Auto) Lymph # [place] # Seg Neutrophils % Seg Neuts % (Manual) Lymphocytes % (Manual) Seg Neutrophils # Seg Neutrophils # Man Lymphocytes # (Manual) PT INR APTT POC ABG pH POC ABG pCO2 POC ABG pO2 Sodium Potassium Chloride Carbon Dioxide BUN Creatinine Glucose POC Glucose 128 H Lactic Acid Calcium Phosphorus Magnesium Iron TIBC AST ALT Alkaline Phosphatase Total Creatine Kinase C-Reactive Protein Total Protein Albumin Folate PTH Intact Urine WBC (Auto) Urine Creatinine Urine Chloride Urine Total Protein Vancomycin Trough Crossmatch Chest x-ray: image reviewed (ETT riding a little high; no PTX) Allied health notes reviewed: nursing
--- NOTE | 2018-05-28 10:41 | Progress Note ---
Assessment and Plan POD # 2 Pt awake alert. VSS off pressors Abd soft, dressings dry ABG's good surgically stable continue present care Selected Entries 05/28/18 08:46 Pulse Rate 92 H Respiratory 19 Rate Blood Pressure 122/83 Laboratory Tests 05/28/18 05/28/18 05/28/18 04:32 05:00 05:00 WBC 26.5 H Hgb 7.7 L Hct 23.6 L POC ABG pH 7.390 POC ABG pCO2 43.8 POC ABG pO2 134 H POC ABG HCO3 26.5 POC ABG Total CO2 28 Sodium 143 Potassium 4.9 Chloride 105.5 BUN 69 H Creatinine 4.4 H Objective Vital Signs - 12hr 05/27/18 05/27/18 05/27/18 22:45 23:00 23:10 Temperature 98.0 F Pulse Rate 92 H 92 H 87 Pulse Rate [ From Monitor] Respiratory 20 22 18 Rate Blood Pressure 132/94 132/94 137/88 O2 Sat by Pulse 97 99 Oximetry O2 Sat by Pulse 99 Oximetry [ Bilateral Throughout] 05/27/18 05/27/18 05/27/18 23:15 23:16 23:20 Temperature 98.9 F Pulse Rate 94 H 93 H Pulse Rate [ From Monitor] Respiratory 18 Rate Blood Pressure 135/94 135/94 O2 Sat by Pulse 98 99 Oximetry O2 Sat by Pulse Oximetry [ Bilateral Throughout] 05/27/18 05/27/18 05/27/18 23:30 23:44 23:45 Temperature Pulse Rate 88 86 85 Pulse Rate [ From Monitor] Respiratory 17 20 17 Rate Blood Pressure 138/88 138/88 137/91 O2 Sat by Pulse 96 99 Oximetry O2 Sat by Pulse Oximetry [ Bilateral Throughout] 05/27/18 05/28/18 05/28/18 23:48 00:00 00:13 Temperature Pulse Rate 93 H 89 Pulse Rate [ 90 From Monitor] Respiratory 22 21 23 Rate Blood Pressure 137/91 141/95 O2 Sat by Pulse 100 99 Oximetry O2 Sat by Pulse Oximetry [ Bilateral Throughout] 05/28/18 05/28/18 05/28/18 00:15 00:30 00:45 Temperature Pulse Rate 88 88 88 Pulse Rate [ From Monitor] Respiratory 18 20 18 Rate Blood Pressure 141/90 142/94 130/91 O2 Sat by Pulse 96 96 97 Oximetry O2 Sat by Pulse Oximetry [ Bilateral Throughout] 05/28/18 05/28/18 05/28/18 01:00 01:15 01:30 Temperature Pulse Rate 88 94 H 91 H Pulse Rate [ From Monitor] Respiratory 19 23 22 Rate Blood Pressure 137/92 142/95 141/93 O2 Sat by Pulse 95 95 Oximetry O2 Sat by Pulse Oximetry [ Bilateral Throughout] 05/28/18 05/28/18 05/28/18 01:45 02:00 02:15 Temperature Pulse Rate 89 92 H 91 H Pulse Rate [ From Monitor] Respiratory 20 18 21 Rate Blood Pressure 131/86 131/86 137/87 O2 Sat by Pulse 95 95 97 Oximetry O2 Sat by Pulse Oximetry [ Bilateral Throughout] 05/28/18 05/28/18 05/28/18 02:30 02:45 03:00 Temperature Pulse Rate 89 96 H 94 H Pulse Rate [ From Monitor] Respiratory 22 22 24 Rate Blood Pressure 133/89 135/88 135/88 O2 Sat by Pulse 98 99 Oximetry O2 Sat by Pulse Oximetry [ Bilateral Throughout] 05/28/18 05/28/18 05/28/18 03:15 03:30 03:45 Temperature Pulse Rate 91 H 91 H 97 H Pulse Rate [ From Monitor] Respiratory 20 20 23 Rate Blood Pressure 134/88 136/92 130/92 O2 Sat by Pulse 96 98 96 Oximetry O2 Sat by Pulse Oximetry [ Bilateral Throughout] 05/28/18 05/28/18 05/28/18 03:46 03:50 04:00 Temperature 99.9 F H Pulse Rate 98 H 91 H Pulse Rate [ 88 From Monitor] Respiratory 20 Rate Blood Pressure 130/92 124/87 O2 Sat by Pulse 99 96 Oximetry O2 Sat by Pulse Oximetry [ Bilateral Throughout] 05/28/18 05/28/18 05/28/18 04:15 04:30 04:36 Temperature Pulse Rate 86 92 H 97 H Pulse Rate [ From Monitor] Respiratory 23 17 Rate Blood Pressure 127/85 126/85 130/92 O2 Sat by Pulse 96 99 96 Oximetry O2 Sat by Pulse Oximetry [ Bilateral Throughout] 05/28/18 05/28/18 05/28/18 04:46 05:00 05:16 Temperature Pulse Rate 98 H 123 H 98 H Pulse Rate [ From Monitor] Respiratory 20 31 H 20 Rate Blood Pressure 126/85 126/85 126/85 O2 Sat by Pulse 98 94 94 Oximetry O2 Sat by Pulse Oximetry [ Bilateral Throughout] 05/28/18 05/28/18 05/28/18 05:30 05:36 05:45 Temperature Pulse Rate 94 H 91 H 93 H Pulse Rate [ 88 From Monitor] Respiratory 17 22 Rate Blood Pressure 126/85 126/85 125/83 O2 Sat by Pulse 95 95 Oximetry O2 Sat by Pulse Oximetry [ Bilateral Throughout] 05/28/18 05/28/18 05/28/18 06:00 06:16 06:30 Temperature Pulse Rate 87 90 88 Pulse Rate [ From Monitor] Respiratory 22 22 20 Rate Blood Pressure 125/83 122/83 122/83 O2 Sat by Pulse 96 97 97 Oximetry O2 Sat by Pulse Oximetry [ Bilateral Throughout] 05/28/18 05/28/18 05/28/18 06:46 07:00 07:13 Temperature Pulse Rate 93 H 94 H 92 H Pulse Rate [ From Monitor] Respiratory 23 23 Rate Blood Pressure 122/83 122/83 122/83 O2 Sat by Pulse 96 97 97 Oximetry O2 Sat by Pulse Oximetry [ Bilateral Throughout] 05/28/18 05/28/18 05/28/18 07:16 07:30 07:46 Temperature Pulse Rate 96 H 95 H 95 H Pulse Rate [ From Monitor] Respiratory 21 23 22 Rate Blood Pressure 122/83 122/83 122/83 O2 Sat by Pulse 97 97 97 Oximetry O2 Sat by Pulse Oximetry [ Bilateral Throughout] 05/28/18 05/28/18 05/28/18 08:00 08:16 08:30 Temperature 97.6 F Pulse Rate 89 89 89 Pulse Rate [ 89 From Monitor] Respiratory 17 20 22 Rate Blood Pressure 122/83 122/83 122/83 O2 Sat by Pulse 97 97 97 Oximetry O2 Sat by Pulse Oximetry [ Bilateral Throughout] 05/28/18 05/28/18 08:46 10:25 Temperature Pulse Rate 92 H Pulse Rate [ From Monitor] Respiratory 19 Rate Blood Pressure 122/83 O2 Sat by Pulse 98 95 Oximetry O2 Sat by Pulse Oximetry [ Bilateral Throughout] - Labs 05/28/18 05:00 05/28/18 05:00 Diabetes panel 05/27/18 05/28/18 Range/Units 10:22 05:00 Sodium 146 H 143 (137-145) mmol/L Potassium 6.1 H* 4.9 (3.6-5.0) mmol/L Chloride 108.2 H 105.5 (98-107) mmol/L Carbon Dioxide 21 L 24 (22-30) mmol/L BUN 88 H 69 H (9-20) mg/dL Creatinine 5.6 H 4.4 H (0.8-1.5) mg/dL Glucose 163 H 118 H (75-100) mg/dL Calcium 6.7 L 8.0 L D (8.4-10.2) mg/dL Calcium panel 05/27/18 05/28/18 Range/Units 10:22 05:00 Calcium 6.7 L 8.0 L D (8.4-10.2) mg/dL Phosphorus 6.80 H D (2.5-4.5) mg/dL Pituitary panel 05/27/18 05/28/18 Range/Units 10:22 05:00 Sodium 146 H 143 (137-145) mmol/L Potassium 6.1 H* 4.9 (3.6-5.0) mmol/L Chloride 108.2 H 105.5 (98-107) mmol/L Carbon Dioxide 21 L 24 (22-30) mmol/L BUN 88 H 69 H (9-20) mg/dL Creatinine 5.6 H 4.4 H (0.8-1.5) mg/dL Glucose 163 H 118 H (75-100) mg/dL Calcium 6.7 L 8.0 L D (8.4-10.2) mg/dL Adrenal panel 05/27/18 05/28/18 Range/Units 10:22 05:00 Sodium 146 H 143 (137-145) mmol/L Potassium 6.1 H* 4.9 (3.6-5.0) mmol/L Chloride 108.2 H 105.5 (98-107) mmol/L Carbon Dioxide 21 L 24 (22-30) mmol/L BUN 88 H 69 H (9-20) mg/dL Creatinine 5.6 H 4.4 H (0.8-1.5) mg/dL Glucose 163 H 118 H (75-100) mg/dL Calcium 6.7 L 8.0 L D (8.4-10.2) mg/dL
[2018-05-28] MEDS: PEPCID IV SCH (10:49)
[2018-05-28] MEDS: FOLVITE PO SCH (10:50)
[2018-05-28] MEDS: HEPARIN SUB-Q SCH ×2 (10:51→22:34)
[2018-05-28] MEDS: MAXIPIME/NS 2 GM/100 ML 2 GM/100 ML BAG IV SCH (14:39)
[2018-05-28] MEDS: HumuLIN R SUB-Q SCH (14:49)
[2018-05-28] MEDS: ZYVOX 600MG/300ML 600 MG/300 ML BAG IV SCH ×3 (14:50→22:42)
--- NOTE | 2018-05-28 19:07 | Hem/Onc Progress Note ---
Assessment and Plan #bowel obstruction - s/p diverting colostomy 05/26 sx notes -mentions matted mass #radiology Pelvic mass Large pelvic mass between bladder and rectum with large lymph nodes, s/p cystoscopy prostate area bx - prelim - sq cell ca # CT showed bowel obstruction - NGT - sx team following # anemia low folate on replacement # leukocytosis on 05/22 - we will follow - likely reactive # h/o Acute kidney injury due to pelvic mass - Nephrology following. Ultrasound Kidneys showed bilat hydronephrosis CT Abd shows Pelvic mass with multiple large lymph nodes Had bilateral nephrostomy tubes placed 05/14/[address] Freeman. renal function worsening - HD being done #Acute DVT right leg - below knee No anticoagulation for now because of bilateral nephrostomy tubes and acute abdo issues. 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 pt intubated but not on pressors will await path - Patient Problems (1) Pelvic mass in male Current Visit: Yes Status: Acute Subjective Date of service: 05/28/18 Principal diagnosis: pelvic mass Interval history: pt in critical unit pt had diverting colostomy 05/26 on vent - awake central line in neck has colostomy - nephrostomy and abdo drain no BM in stomy Objective - Exam Narrative Exam: pt intubated - awake - moves all 4 extremity - Constitutional Vitals: Last Vital Signs Temp 97.8 F 05/28/18 16:00 Pulse 120 H 05/28/18 18:00 Resp 32 H 05/28/18 18:00 BP 142/91 05/28/18 18:00 Pulse Ox 94 05/28/18 18:00 - EENT Eyes: PERRL Lymph node exam: negative cervical - Respiratory Respiratory: bilateral: CTA (anteriorly) - Cardiovascular Heart Sounds: Present: S1 & S2 Extremities: No edema - Gastrointestinal General gastrointestinal: Present: other (colostomy and drain+) Rectal Exam: deferred - Genitourinary Male genitourinary: Present: deferred - Integumentary Integumentary: warm - Labs Lab Results: Laboratory Results - last 24 hr 05/27/18 05/28/1818 23:27 04:32 05:00 WBC RBC Hgb Hct MCV MCH MCHC RDW Plt Count Lymph % (Auto) [place] % (Auto) Eos % (Auto) Baso % (Auto) Lymph # [place] # Eos # Baso # Add Manual Diff Total Counted Seg Neutrophils % Seg Neuts % (Manual) Band Neutrophils % Lymphocytes % (Manual) Reactive Lymphs % (Man) Monocytes % (Manual) Eosinophils % (Manual) Basophils % (Manual) Metamyelocytes % Myelocytes % Promyelocytes % Blast Cells % Nucleated RBC % Seg Neutrophils # Seg Neutrophils # Man Band Neutrophils # Lymphocytes # (Manual) Abs React Lymphs (Man) Monocytes # (Manual) Eosinophils # (Manual) Basophils # (Manual) Metamyelocytes # Myelocytes # Promyelocytes # Blast Cells # WBC Morphology Hypersegmented Neuts Hyposegmented Neuts Hypogranular Neuts Smudge Cells Toxic Granulation Toxic Vacuolation Dohle Bodies Pelger-Huet Anomaly Mahesh Rods Platelet Estimate Clumped Platelets Plt Clumps, EDTA Large Platelets Giant Platelets Platelet Satelliting Plt Morphology Comment RBC Morphology Dimorphic RBCs Polychromasia Hypochromasia Poikilocytosis Anisocytosis Microcytosis Macrocytosis Spherocytes Pappenheimer Bodies Sickle Cells Target Cells Tear Drop Cells Ovalocytes Helmet Cells Hernandez-Gunbarrel Bodies Shirley Rings Nory Cells Bite Cells Crenated Cell Elliptocytes Acanthocytes (Spur) Rouleaux Hemoglobin C Crystals Schistocytes Malaria parasites Mk Bodies Hem Pathologist Commnt POC ABG pH 7.390 POC ABG pCO2 43.8 POC ABG pO2 134 H POC ABG HCO3 26.5 POC ABG Total CO2 28 POC ABG O2 Sat 99 POC ABG Base Excess 2 FiO2 50 Sodium 143 Potassium 4.9 Chloride 105.5 Carbon Dioxide 24 Anion Gap 18 BUN 69 H Creatinine 4.4 H Estimated GFR 17 BUN/Creatinine Ratio 16 Glucose 118 H POC Glucose 132 H Calcium 8.0 L D Phosphorus 6.80 H D Magnesium 1.90 05/28/18 05/28/18 05/28/18 05:00 05:27 13:04 WBC 26.5 H RBC 2.69 L Hgb 7.7 L Hct 23.6 L MCV 88 MCH 29 MCHC 33 RDW 14.8 Plt Count 365 Lymph % (Auto) Hospital Insurance Clerk [place] % (Auto) Hospital Insurance Clerk Eos % (Auto) Hospital Insurance Clerk Baso % (Auto) Hospital Insurance Clerk Lymph # Hospital Insurance Clerk [place] # Hospital Insurance Clerk Eos # Hospital Insurance Clerk Baso # Hospital Insurance Clerk Add Manual Diff Complete Total Counted 100 Seg Neutrophils % Hospital Insurance Clerk Seg Neuts % (Manual) 96.0 H Band Neutrophils % 1.0 Lymphocytes % (Manual) 0 L Reactive Lymphs % (Man) 2.0 Monocytes % (Manual) 1.0 Eosinophils % (Manual) 0 Basophils % (Manual) 0 Metamyelocytes % 0 Myelocytes % 0 Promyelocytes % 0 Blast Cells % 0 Nucleated RBC % Not Reportable Seg Neutrophils # Hospital Insurance Clerk Seg Neutrophils # Man 25.4 H Band Neutrophils # 0.3 Lymphocytes # (Manual) 0.0 L Abs React Lymphs (Man) 0.5 Monocytes # (Manual) 0.3 Eosinophils # (Manual) 0.0 Basophils # (Manual) 0.0 Metamyelocytes # 0.0 Myelocytes # 0.0 Promyelocytes # 0.0 Blast Cells # 0.0 WBC Morphology Not Reportable Hypersegmented Neuts Not Reportable Hyposegmented Neuts Not Reportable Hypogranular Neuts Not Reportable Smudge Cells Not Reportable Toxic Granulation Not Reportable Toxic Vacuolation Not Reportable Dohle Bodies Not Reportable Pelger-Huet Anomaly Not Reportable Mahesh Rods Not Reportable Platelet Estimate Consistent w auto Clumped Platelets Not Reportable Plt Clumps, EDTA Not Reportable Large Platelets Not Reportable Giant Platelets Not Reportable Platelet Satelliting Not Reportable Plt Morphology Comment Not Reportable RBC Morphology Not Reportable Dimorphic RBCs Not Reportable Polychromasia Not Reportable Hypochromasia 1+ Poikilocytosis Not Reportable Anisocytosis Not Reportable Microcytosis Not Reportable Macrocytosis Not Reportable Spherocytes Not Reportable Pappenheimer Bodies Not Reportable Sickle Cells Not Reportable Target Cells Not Reportable Tear Drop Cells Not Reportable Ovalocytes Not Reportable Helmet Cells Not Reportable Hernandez-Gunbarrel Bodies Not Reportable Shirley Rings Not Reportable Nory Cells Not Reportable Bite Cells Not Reportable Crenated Cell Not Reportable Elliptocytes Not Reportable Acanthocytes (Spur) Not Reportable Rouleaux Not Reportable Hemoglobin C Crystals Not Reportable Schistocytes Not Reportable Malaria parasites Not Reportable Mk Bodies Not Reportable Hem Pathologist Commnt No POC ABG pH POC ABG pCO2 POC ABG pO2 POC ABG HCO3 POC ABG Total CO2 POC ABG O2 Sat POC ABG Base Excess FiO2 Sodium Potassium Chloride Carbon Dioxide Anion Gap BUN Creatinine Estimated GFR BUN/Creatinine Ratio Glucose POC Glucose 128 H 155 H Calcium Phosphorus Magnesium 05/28/18 17:56 WBC RBC Hgb Hct MCV MCH MCHC RDW Plt Count Lymph % (Auto) [place] % (Auto) Eos % (Auto) Baso % (Auto) Lymph # [place] # Eos # Baso # Add Manual Diff Total Counted Seg Neutrophils % Seg Neuts % (Manual) Band Neutrophils % Lymphocytes % (Manual) Reactive Lymphs % (Man) Monocytes % (Manual) Eosinophils % (Manual) Basophils % (Manual) Metamyelocytes % Myelocytes % Promyelocytes % Blast Cells % Nucleated RBC % Seg Neutrophils # Seg Neutrophils # Man Band Neutrophils # Lymphocytes # (Manual) Abs React Lymphs (Man) Monocytes # (Manual) Eosinophils # (Manual) Basophils # (Manual) Metamyelocytes # Myelocytes # Promyelocytes # Blast Cells # WBC Morphology Hypersegmented Neuts Hyposegmented Neuts Hypogranular Neuts Smudge Cells Toxic Granulation Toxic Vacuolation Dohle Bodies Pelger-Huet Anomaly Mahesh Rods Platelet Estimate Clumped Platelets Plt Clumps, EDTA Large Platelets Giant Platelets Platelet Satelliting Plt Morphology Comment RBC Morphology Dimorphic RBCs Polychromasia Hypochromasia Poikilocytosis Anisocytosis Microcytosis Macrocytosis Spherocytes Pappenheimer Bodies Sickle Cells Target Cells Tear Drop Cells Ovalocytes Helmet Cells Hernandez-Gunbarrel Bodies Shirley Rings Nory Cells Bite Cells Crenated Cell Elliptocytes Acanthocytes (Spur) Rouleaux Hemoglobin C Crystals Schistocytes Malaria parasites Mk Bodies Hem Pathologist Commnt POC ABG pH POC ABG pCO2 POC ABG pO2 POC ABG HCO3 POC ABG Total CO2 POC ABG O2 Sat POC ABG Base Excess FiO2 Sodium Potassium Chloride Carbon Dioxide Anion Gap BUN Creatinine Estimated GFR BUN/Creatinine Ratio Glucose POC Glucose 110 H Calcium Phosphorus Magnesium
[2018-05-28] MEDS: ATIVAN IV PRN (19:15)
[2018-05-28] MEDS ORDERED: TPN ADULT 2,016 ML IV SCH (20:00)
[2018-05-29] MEDS: HumuLIN R SUB-Q SCH ×3 (00:43→21:19)
[2018-05-29] MEDS: ATIVAN IV PRN ×2 (00:49→03:21)
[2018-05-29] MEDS: MORPHINE IV PRN ×2 (00:51→03:22)
--- NOTE | 2018-05-29 04:45 | XRay Report ---
FINAL REPORT EXAM: XR CHEST 1V AP HISTORY: pneumonia TECHNIQUE: A portable semi-upright view the chest was obtained and compared to the study of 05/26/2018. FINDINGS: The tip of the central venous line is in good position in the distal superior vena cava. The tip of the NG tube is in the distal esophagus. It needs to be advanced at least 10 cm further for placement in the stomach. The tip of the ET tube is 4.8 cm above the patience. Heart size is normal. The lungs appear mildly congested. There is stable airspace disease in the left lung base. The bones and soft tissues otherwise are unchanged. IMPRESSION: Stable airspace disease in left lung base with pulmonary congestion. The tip of the NG tube is in the distal esophagus. It needs to be advanced at least 10 centimeters for satisfactory position of the stomach.
[2018-05-29 04:48] LABS: Albumin 1.6 g/dL (3.9-5); Calcium 7.7 mg/dL (8.4-10.2)
[2018-05-29] MEDS: FLAGYL 500 MG/100 ML 500 MG/100 ML BAG IV SCH ×3 (04:59→21:16)
[2018-05-29] MEDS: APRESOLINE PO SCH ×4 (05:00→21:17)
[2018-05-29] MEDS: LOPRESSOR IV SCH ×4 (06:10→21:14)
--- NOTE | 2018-05-29 08:56 | Progress Note ---
Assessment and Plan Assessment and plan: The patient is a 52 YO AAM with medical history significant for Uncontrolled HTN who came to the ER for evaluation of bilateral leg swelling, SOB and no urine output. He had abdominal pain, bilateral leg swelling, stopped making urine. Currently the patient has had a weight loss of over 50 pounds in the last 3 months. He was not taking any meds on a regular basis and has not seen a physician except ER visit last year. He underwent a biopsy with placement of bilateral nephrostomy tubes. 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 Hospitalist tried to transfer to [facility] but he was not accepted. He deteriorated , had sepsis, tachycardia. Major abdominal surgery was done on 05/26, he was intubated, remains intubated. Started on dialysis 05/27 for MARYLOU and severe hyperkalemia. Acute respiratory failure. Intubated 05/26 Pulmonology following Sepsis. Now on Cefepime, Zyvox, flagyl. He was evaluated by ID Physician Bowel obstruction s/p surgery 05/26 had exploratory laparotomy, revealed matted abdominal organs, pus. Eenterostomy tube decompression,loop colostomy and large triple lumen sump drainage of pelvis was done 05/26/[address] Keita Pelvic mass Large pelvic mass between bladder and rectum with large lymph nodes, malignant. Consulted Urology to evaluate, s/p cystoscopy with prostate biopsy Differentiated carcinoma with squamous differentiation on pathology but unsure of exact primary Acute kidney injury on admission due to pelvic mass Nephrology following. Ultrasound Kidneys showed bilat hydronephrosis CT Abd shows Pelvic mass with multiple large lymph nodes Had bilateral nephrostomy tubes placed 05/14/[address] Freeman. Creatinine worse after CT Angio done on 05/25 to r/o pulm embolism because of severe tachycardia and DVT right lower ext. Discussed with Nephrology. started dialysis 05/27 Acute DVT right femoral vein. No anticoagulation for now because of bilateral nephrostomy tubes, now major abdominal surgery Reassesed with repeat venous doppler and showed no DVT propagation Hypertensive urgency, present on admission Now resolved. Sinus tachycardia improved, On Metoprolol cardiology following Was OK to use contrast for CT Angio as per Nephrology CT Angio chest negative for Pulm embolism Hyperkalemia, was not resolved after multiple treatment attempts with calcium iv, Insulin Discussed with Nephrology Now resolved after dialysis started 9/14. Hypernatremia, Metabolic acidosis due to MARYLOU, now resolved ACUTE BLOOD LOSS ANEMIA Monitor. Fever due to Sepsis Moderate to severe protein calorie malnutrition - continue TPN Full code status Earlier discussed with previous hospitalist, Dr. Valentin He states patient not accepted at [facility]. I discussed with Dr. Keita, surgeon. he recommended colonoscopy by GI then, he, Dr. Keita will do diverting colostomy. I then discussed with Dr. Cunningham and he states will do flex sigmoidoscopy. I later discussed this with patient and sister at bedside, in presence of Nurse , Kita and Employee Relations Administrator on 05/24/18 Flexible sigmoidoscopy done 05/25, abdominal surgery done 05/26/18. Details as above. Patient in critical condition. Prognosis guarded History Interval history: Patient with cancer, acute resp failure, MARYLOU, had major abdominal surgery 05/26 still intubated Hospitalist Physical - Physical exam Narrative exam: GEN:Not in acute distress, lying in bed, very ill looking,intubated HEENT: Normocephalic, atraumatic, Neck: supple, No JVD Lungs: Clear to auscultaion bilaterally, no crackles Heart:S1 and S2 reguklar tachy, no murmurs, rubs or gallop Abd:soft, mild tender, surgical wound covered with dressing, ostomy,surgical drain, bilat nephrostomy tubes Ext: No edema, clubbing or cyanosis Neuro: Awake, alert, intubated, not sedated - Constitutional Vitals: Temp Pulse Resp BP Pulse Ox 98.4 F 125 H 31 H 128/82 98 05/29/18 00:00 05/29/18 08:23 05/29/18 08:23 05/29/18 08:23 05/29/18 08:23 General appearance: Present: cachectic Results - Labs CBC & Chem 7: 05/28/18 05:00 05/29/18 04:00 Labs: Laboratory Last Values WBC 26.5 K/mm3 (4.5-11.0) H 05/28/18 05:00 RBC 2.69 M/mm3 (3.65-5.03) L 05/28/18 05:00 Hgb 7.7 gm/dl (11.8-15.2) L 05/28/18 05:00 Hct 23.6 % (35.5-45.6) L 05/28/18 05:00 MCV 88 fl (84-94) 05/28/18 05:00 MCH 29 pg (28-32) 05/28/18 05:00 MCHC 33 % (32-34) 05/28/18 05:00 RDW 14.8 % (13.2-15.2) 05/28/18 05:00 Plt Count 365 K/mm3 (140-440) 05/28/18 05:00 Lymph % (Auto) [place] 05/28/18 05:00 [place] % (Auto) [place] 05/28/18 05:00 Eos % (Auto) [place] 05/28/18 05:00 Baso % (Auto) [place] 05/28/18 05:00 Lymph # [place] 05/28/18 05:00 [place] # [place] 05/28/18 05:00 Eos # [place] 05/28/18 05:00 Baso # [place] 05/28/18 05:00 Add Manual Diff Complete 05/28/18 05:00 Total Counted 100 05/28/18 05:00 Seg Neutrophils % [place] 05/28/18 05:00 Seg Neuts % (Manual) 96.0 % (40.0-70.0) H 05/28/18 05:00 Band Neutrophils % 1.0 % 05/28/18 05:00 Lymphocytes % (Manual) 0 % (13.4-35.0) L 05/28/18 05:00 Reactive Lymphs % (Man) 2.0 % 05/28/18 05:00 Monocytes % (Manual) 1.0 % (0.0-7.3) 05/28/18 05:00 Eosinophils % (Manual) 0 % (0.0-4.3) 05/28/18 05:00 Basophils % (Manual) 0 % (0.0-1.8) 05/28/18 05:00 Metamyelocytes % 0 % 05/28/18 05:00 Myelocytes % 0 % 05/28/18 05:00 Promyelocytes % 0 % 05/28/18 05:00 Blast Cells % 0 % 05/28/18 05:00 Nucleated RBC % Not Reportable 05/28/18 05:00 Seg Neutrophils # [place] 05/28/18 05:00 Seg Neutrophils # Man 25.4 K/mm3 (1.8-7.7) H 05/28/18 05:00 Band Neutrophils # 0.3 K/mm3 05/28/18 05:00 Lymphocytes # (Manual) 0.0 K/mm3 (1.2-5.4) L 05/28/18 05:00 Abs React Lymphs (Man) 0.5 K/mm3 05/28/18 05:00 Monocytes # (Manual) 0.3 K/mm3 (0.0-0.8) 05/28/18 05:00 Eosinophils # (Manual) 0.0 K/mm3 (0.0-0.4) 05/28/18 05:00 Basophils # (Manual) 0.0 K/mm3 (0.0-0.1) 05/28/18 05:00 Metamyelocytes # 0.0 K/mm3 05/28/18 05:00 Myelocytes # 0.0 K/mm3 05/28/18 05:00 Promyelocytes # 0.0 K/mm3 05/28/18 05:00 Blast Cells # 0.0 K/mm3 05/28/18 05:00 WBC Morphology Not Reportable 05/28/18 05:00 Hypersegmented Neuts Not Reportable 05/28/18 05:00 Hyposegmented Neuts Not Reportable 05/28/18 05:00 Hypogranular Neuts Not Reportable 05/28/18 05:00 Smudge Cells Not Reportable 05/28/18 05:00 Toxic Granulation Not Reportable 05/28/18 05:00 Toxic Vacuolation Not Reportable 05/28/18 05:00 Dohle Bodies Not Reportable 05/28/18 05:00 Pelger-Huet Anomaly Not Reportable 05/28/18 05:00 Mahesh Rods Not Reportable 05/28/18 05:00 Platelet Estimate Consistent w auto 05/28/18 05:00 Clumped Platelets Not Reportable 05/28/18 05:00 Plt Clumps, EDTA Not Reportable 05/28/18 05:00 Large Platelets Not Reportable 05/28/18 05:00 Giant Platelets Not Reportable 05/28/18 05:00 Platelet Satelliting Not Reportable 05/28/18 05:00 Plt Morphology Comment Not Reportable 05/28/18 05:00 RBC Morphology Not Reportable 05/28/18 05:00 Dimorphic RBCs Not Reportable 05/28/18 05:00 Polychromasia Not Reportable 05/28/18 05:00 Hypochromasia 1+ 05/28/18 05:00 Poikilocytosis Not Reportable 05/28/18 05:00 Anisocytosis Not Reportable 05/28/18 05:00 Microcytosis Not Reportable 05/28/18 05:00 Macrocytosis Not Reportable 05/28/18 05:00 Spherocytes Not Reportable 05/28/18 05:00 Pappenheimer Bodies Not Reportable 05/28/18 05:00 Sickle Cells Not Reportable 05/28/18 05:00 Target Cells Not Reportable 05/28/18 05:00 Tear Drop Cells Not Reportable 05/28/18 05:00 Ovalocytes Not Reportable 05/28/18 05:00 Helmet Cells Not Reportable 05/28/18 05:00 [place] Bodies Not Reportable 05/28/18 05:00 [place] Rings Not Reportable 05/28/18 05:00 [place] Cells Not Reportable 05/28/18 05:00 Bite Cells Not Reportable 05/28/18 05:00 Crenated Cell Not Reportable 05/28/18 05:00 Elliptocytes Not Reportable 05/28/18 05:00 Acanthocytes (Spur) Not Reportable 05/28/18 05:00 Rouleaux Not Reportable 05/28/18 05:00 Hemoglobin C Crystals Not Reportable 05/28/18 05:00 Schistocytes Not Reportable 05/28/18 05:00 Malaria parasites Not Reportable 05/28/18 05:00 Mk Bodies Not Reportable 05/28/18 05:00 Hem Pathologist Commnt No 05/28/18 05:00 PT 18.3 Sec. (12.2-14.9) H 05/23/18 09:03 INR 1.43 (0.87-1.13) H 05/23/18 09:03 APTT 40.0 Sec. (24.2-36.6) H 05/23/18 09:03 POC ABG pH 7.471 (7.35-7.45) H 05/29/18 03:35 POC ABG pCO2 35.1 (35-45) 05/29/18 03:35 POC ABG pO2 78 (80-105) L 05/29/18 03:35 POC ABG HCO3 25.6 05/29/18 03:35 POC ABG Total CO2 27 05/29/18 03:35 POC ABG O2 Sat 96 05/29/18 03:35 POC ABG Base Excess 2 05/29/18 03:35 FiO2 40 % 05/29/18 03:35 Sodium 137 mmol/L (137-145) 05/29/18 04:00 Potassium 4.0 mmol/L (3.6-5.0) 05/29/18 04:00 Chloride 98.9 mmol/L (98-107) 05/29/18 04:00 Carbon Dioxide 25 mmol/L (22-30) 05/29/18 04:00 Anion Gap 17 mmol/L 05/29/18 04:00 BUN 50 mg/dL (9-20) H 05/29/18 04:00 Creatinine 3.9 mg/dL (0.8-1.5) H 05/29/18 04:00 Estimated GFR 20 ml/min 05/29/18 04:00 BUN/Creatinine Ratio 13 % 05/29/18 04:00 Glucose 88 mg/dL (75-100) 05/29/18 04:00 POC Glucose 88 (70-105) 05/29/18 05:37 Hemoglobin A1c 5.7 % (4-6) 05/14/18 05:05 Lactic Acid 3.80 mmol/L (0.7-2.0) H* 05/26/18 11:00 Calcium 7.7 mg/dL (8.4-10.2) L 05/29/18 04:00 Phosphorus 4.20 mg/dL (2.5-4.5) D 05/29/18 04:00 Magnesium 1.50 mg/dL (1.7-2.3) L 05/29/18 04:00 Iron 24 ug/dL (49-181) L 05/16/18 07:02 TIBC 160 mcg/dL (250-450) L 05/16/18 07:02 Ferritin 325.8 ng/mL (13.0-400.0) 05/16/18 07:02 Total Bilirubin 1.00 mg/dL (0.1-1.2) 05/29/18 04:00 AST 218 units/L (5-40) H 05/29/18 04:00 ALT 204 units/L (7-56) H 05/29/18 04:00 Alkaline Phosphatase 91 units/L (35-129) 05/29/18 04:00 Total Creatine Kinase 156 units/L (55-170) 05/25/18 22:46 CK-MB (CK-2) 2.3 ng/mL (0.0-4.0) 05/25/18 22:46 CK-MB (CK-2) Rel Index 1.4 (0-4) 05/25/18 22:46 C-Reactive Protein 40.70 mg/dL (0.00-1.30) H 05/27/18 10:22 Total Protein 5.4 g/dL (6.3-8.2) L 05/29/18 04:00 Albumin 1.6 g/dL (3.9-5) L 05/29/18 04:00 Albumin/Globulin Ratio 0.4 % 05/29/18 04:00 Prostate Specific Ag 0.96 ng/mL (0.00-4.00) 05/14/18 13:29 Vitamin B12 359.2 pg/mL (211-911) 05/16/18 07:02 Folate 5.39 ng/mL (7.3-26.0) L 05/16/18 07:02 TSH 3.180 mlU/mL (0.270-4.200) 05/14/18 05:05 PTH Intact 65.37 pg/mL (15-65) H 05/14/18 05:05 Urine Color [place] (Yellow) 05/27/18 Unknown Urine Turbidity Cloudy (Clear) 05/27/18 Unknown Urine pH 5.0 (5.0-7.0) 05/27/18 Unknown Ur Specific [place] 1.026 (1.003-1.030) 05/27/18 Unknown Urine Protein 100 mg/dl mg/dL (Negative) 05/27/18 Unknown Urine Glucose (UA) 50 mg/dL (Negative) 05/27/18 Unknown Urine Ketones Neg mg/dL (Negative) 05/27/18 Unknown Urine Blood Lg (Negative) 05/27/18 Unknown Urine Nitrite Neg (Negative) 05/27/18 Unknown Urine Bilirubin Neg (Negative) 05/27/18 Unknown Urine Urobilinogen < 2.0 mg/dL (<2.0) 05/27/18 Unknown Ur Leukocyte Esterase Mod (Negative) 05/27/18 Unknown Urine WBC (Auto) 120.0 /HPF (0.0-6.0) H 05/27/18 Unknown Urine RBC (Auto) 35.0 /HPF (0.0-6.0) 05/27/18 Unknown U Epithel Cells (Auto) 3.0 /HPF (0-13.0) 05/27/18 Unknown Urine Bacteria (Auto) 1+ /HPF (Negative) 05/27/18 Unknown Urine WBC Clumps Few /HPF 05/13/18 19:39 Urine Mucus Few /HPF 05/27/18 Unknown Urine Yeast (Budding) 2+ /HPF 05/21/18 15:30 Urine Creatinine 66.0 mg/dL (0.1-20.0) H 05/13/18 19:39 Urine Sodium 60 mmol/L 05/13/18 19:39 Urine Potassium 8.69 mmol/L 05/13/18 19:39 Urine Chloride 27.8 mmolL (110-250) L 05/13/18 19:39 Urine Total Protein 24 mg/dL (5-11.8) H 05/13/18 19:39 Vancomycin Trough 25.1 ug/mL (5.0-20.0) H 05/25/18 22:46 Random Vancomycin 34.3 ug/mL (0-40.0) 05/26/18 11:01 Urine Opiates Screen Presumptive negative 05/13/18 19:39 Urine Methadone Screen Presumptive negative 05/13/18 19:39 Ur Barbiturates Screen Presumptive negative 05/13/18 19:39 Ur Phencyclidine Scrn Presumptive negative 05/13/18 19:39 Ur Amphetamines Screen Presumptive negative 05/13/18 19:39 U Benzodiazepines Scrn Presumptive negative 05/13/18 19:39 Urine Cocaine Screen Presumptive negative 05/13/18 19:39 U Marijuana (THC) Screen Presumptive negative 05/13/18 19:39 Drugs of Abuse Note Disclamer 05/13/18 19:39 ZEUS Screen Negative (Negative) 05/14/18 05:05 Proteinase 3 (PR3) Ab <1.0 AI (<1.0) 05/14/18 05:05 Myeloperoxidase Ab <1.0 AI (<1.0) 05/14/18 05:05 Complement C3 147 mg/dL (82-185) 05/14/18 05:05 Complement C4 45 mg/dL (15-53) 05/14/18 05:05 Hep Bs Antigen Non-reactive (Negative) 05/27/18 13:41 Hep B Core IgM Ab Non-reactive (NonReactive) 05/27/18 13:41 Hepatitis C Antibody Non-reactive (NonReactive) 05/27/18 13:41 Blood Type O POSITIVE 05/22/18 11:23 Antibody Screen Negative 05/22/18 11:23 Crossmatch See Detail 05/22/18 11:23
[2018-05-29] MEDS: HEPARIN SUB-Q SCH ×2 (10:27→21:15)
[2018-05-29] MEDS: PEPCID IV SCH (10:28)
[2018-05-29] MEDS: FERROUS SULFATE PO SCH ×2 (10:28→21:15)
[2018-05-29] MEDS: FOLVITE PO SCH (10:28)
--- NOTE | 2018-05-29 10:35 | Progress Note ---
Assessment and Plan Pt status quo. awake and alert tachycardic & tachypneic at present. O2 dropped when lowering FI O2 to 40% Abd soft. status quo sepsis tumor perforation from tumor? mult organ failure critical Selected Entries 05/29/18 05/29/18 05/29/18 00:00 08:23 10:28 Temperature 98.4 F Pulse Rate 128 H Respiratory 31 H Rate Laboratory Tests 05/28/18 05/29/18 05:00 03:35 WBC 26.5 H Hgb 7.7 L Hct 23.6 L POC ABG pH 7.471 H POC ABG pCO2 35.1 POC ABG pO2 78 L POC ABG HCO3 25.6 FiO2 40 Objective Vital Signs - 12hr 05/28/18 05/28/18 05/28/18 22:40 22:46 23:00 Temperature Pulse Rate 124 H 123 H 125 H Pulse Rate [ From Monitor] Respiratory 31 H 35 H Rate Blood Pressure 125/76 125/76 131/84 O2 Sat by Pulse 97 92 Oximetry 05/28/18 05/28/18 05/28/18 23:14 23:16 23:30 Temperature Pulse Rate 123 H 127 H 130 H Pulse Rate [ From Monitor] Respiratory 33 H 32 H 35 H Rate Blood Pressure 125/76 125/76 125/76 O2 Sat by Pulse 98 96 95 Oximetry 05/28/18 05/28/18 05/29/18 23:46 23:47 00:00 Temperature 98.4 F Pulse Rate 131 H 128 H 125 H Pulse Rate [ 115 H From Monitor] Respiratory 29 H 35 H Rate Blood Pressure 125/76 131/84 131/84 O2 Sat by Pulse 97 97 Oximetry 05/29/18 05/29/18 05/29/18 00:16 00:30 00:46 Temperature Pulse Rate 122 H 118 H 115 H Pulse Rate [ From Monitor] Respiratory 31 H 31 H 25 H Rate Blood Pressure 131/84 138/91 138/91 O2 Sat by Pulse 99 99 99 Oximetry 05/29/18 05/29/18 05/29/18 00:51 01:00 01:16 Temperature Pulse Rate 117 H 116 H Pulse Rate [ From Monitor] Respiratory 26 H 26 H 26 H Rate Blood Pressure 120/81 120/81 O2 Sat by Pulse 99 99 Oximetry 05/29/18 05/29/18 05/29/18 01:30 01:46 02:00 Temperature Pulse Rate 115 H 115 H 112 H Pulse Rate [ From Monitor] Respiratory 25 H 25 H 24 Rate Blood Pressure 120/81 120/81 120/81 O2 Sat by Pulse 99 98 99 Oximetry 05/29/18 05/29/18 05/29/18 02:16 02:30 02:46 Temperature Pulse Rate 119 H 118 H 119 H Pulse Rate [ From Monitor] Respiratory 31 H 25 H 26 H Rate Blood Pressure 117/87 117/87 117/87 O2 Sat by Pulse 97 98 98 Oximetry 05/29/18 05/29/18 05/29/18 03:00 03:16 03:22 Temperature Pulse Rate 125 H 126 H Pulse Rate [ From Monitor] Respiratory 32 H 31 H 32 H Rate Blood Pressure 113/92 113/92 O2 Sat by Pulse 98 Oximetry 05/29/18 05/29/18 05/29/18 03:25 03:30 03:46 Temperature Pulse Rate 123 H 122 H 121 H Pulse Rate [ From Monitor] Respiratory 27 H 27 H Rate Blood Pressure 113/92 113/92 113/92 O2 Sat by Pulse 96 96 97 Oximetry 05/29/18 05/29/18 05/29/18 04:00 04:16 04:30 Temperature Pulse Rate 122 H 121 H 121 H Pulse Rate [ From Monitor] Respiratory 28 H 27 H 28 H Rate Blood Pressure 106/82 106/82 106/82 O2 Sat by Pulse 95 96 96 Oximetry 05/29/18 05/29/18 05/29/18 04:46 05:00 05:16 Temperature Pulse Rate 127 H 122 H 123 H Pulse Rate [ 115 H From Monitor] Respiratory 32 H 27 H 30 H Rate Blood Pressure 106/82 119/89 119/89 O2 Sat by Pulse 97 96 98 Oximetry 05/29/18 05/29/18 05/29/18 05:30 05:46 06:10 Temperature Pulse Rate 127 H 123 H 121 H Pulse Rate [ From Monitor] Respiratory 30 H 28 H Rate Blood Pressure 119/89 119/89 131/98 O2 Sat by Pulse 98 97 Oximetry 05/29/18 05/29/18 05/29/18 08:19 08:23 10:28 Temperature Pulse Rate 130 H 125 H 128 H Pulse Rate [ From Monitor] Respiratory 31 H Rate Blood Pressure 128/82 128/82 128/82 O2 Sat by Pulse 98 98 Oximetry - Labs 05/28/18 05:00 05/29/18 04:00 Diabetes panel 05/29/18 Range/Units 04:00 Sodium 137 (137-145) mmol/L Potassium 4.0 (3.6-5.0) mmol/L Chloride 98.9 (98-107) mmol/L Carbon Dioxide 25 (22-30) mmol/L BUN 50 H (9-20) mg/dL Creatinine 3.9 H (0.8-1.5) mg/dL Glucose 88 (75-100) mg/dL Calcium 7.7 L (8.4-10.2) mg/dL AST 218 H (5-40) units/L ALT 204 H (7-56) units/L Alkaline Phosphatase 91 (35-129) units/L Total Protein 5.4 L (6.3-8.2) g/dL Albumin 1.6 L (3.9-5) g/dL Calcium panel 05/29/18 Range/Units 04:00 Calcium 7.7 L (8.4-10.2) mg/dL Phosphorus 4.20 D (2.5-4.5) mg/dL Albumin 1.6 L (3.9-5) g/dL Pituitary panel 05/29/18 Range/Units 04:00 Sodium 137 (137-145) mmol/L Potassium 4.0 (3.6-5.0) mmol/L Chloride 98.9 (98-107) mmol/L Carbon Dioxide 25 (22-30) mmol/L BUN 50 H (9-20) mg/dL Creatinine 3.9 H (0.8-1.5) mg/dL Glucose 88 (75-100) mg/dL Calcium 7.7 L (8.4-10.2) mg/dL Adrenal panel 05/29/18 Range/Units 04:00 Sodium 137 (137-145) mmol/L Potassium 4.0 (3.6-5.0) mmol/L Chloride 98.9 (98-107) mmol/L Carbon Dioxide 25 (22-30) mmol/L BUN 50 H (9-20) mg/dL Creatinine 3.9 H (0.8-1.5) mg/dL Glucose 88 (75-100) mg/dL Calcium 7.7 L (8.4-10.2) mg/dL Total Bilirubin 1.00 (0.1-1.2) mg/dL AST 218 H (5-40) units/L ALT 204 H (7-56) units/L Alkaline Phosphatase 91 (35-129) units/L Total Protein 5.4 L (6.3-8.2) g/dL Albumin 1.6 L (3.9-5) g/dL
[2018-05-29] MEDS: MAXIPIME/NS 2 GM/100 ML 2 GM/100 ML BAG IV SCH (10:45)
[2018-05-29] MEDS: ZYVOX 600MG/300ML 600 MG/300 ML BAG IV SCH ×2 (10:46→21:16)
--- NOTE | 2018-05-29 11:12 | Progress Note ---
Assessment and Plan 1. Acute kidney injury: Recurrent Acute kidney injury. Initial MARYLOU in the setting of bilateral hydronephrosis secondary to pelvic mass , now s/p bilateral nephrostomy. Patient required urgent hemodialysis 2 days ago due to worsening renal function and persistent hyperkalemia. Patient was last dialyzed yesterday. Renal prognosis is guarded. 2. Electrolytes: Hypernatremia, improving. Hyperkalemia, K level is better. Replete Mg. 3. Bowel obstruction: S/p ostomy. 4. Bilateral hydronephrosis: S/p bilateral nephrostomy. S/p Cysto and drainage of abscess. 5. Respiratory failure: On vent. 6. Hypotension: BP is better. 7. Anemia. 8. Pelvic mass: Squamous cell Ca. Subjective Date of service: 05/29/18 Principal diagnosis: pelvic mass Interval history: Patient was seen and examined at the bedside. Objective - Vital Signs Vital signs: Vital Signs - 12hr 05/28/18 05/28/18 05/28/18 23:14 23:16 23:30 Temperature Pulse Rate 123 H 127 H 130 H Pulse Rate [ From Monitor] Respiratory 33 H 32 H 35 H Rate Blood Pressure 125/76 125/76 125/76 O2 Sat by Pulse 98 96 95 Oximetry 05/28/18 05/28/18 05/29/18 23:46 23:47 00:00 Temperature 98.4 F Pulse Rate 131 H 128 H 125 H Pulse Rate [ 115 H From Monitor] Respiratory 29 H 35 H Rate Blood Pressure 125/76 131/84 131/84 O2 Sat by Pulse 97 97 Oximetry 05/29/18 05/29/18 05/29/18 00:16 00:30 00:46 Temperature Pulse Rate 122 H 118 H 115 H Pulse Rate [ From Monitor] Respiratory 31 H 31 H 25 H Rate Blood Pressure 131/84 138/91 138/91 O2 Sat by Pulse 99 99 99 Oximetry 05/29/18 05/29/18 05/29/18 00:51 01:00 01:16 Temperature Pulse Rate 117 H 116 H Pulse Rate [ From Monitor] Respiratory 26 H 26 H 26 H Rate Blood Pressure 120/81 120/81 O2 Sat by Pulse 99 99 Oximetry 05/29/18 05/29/18 05/29/18 01:30 01:46 02:00 Temperature Pulse Rate 115 H 115 H 112 H Pulse Rate [ From Monitor] Respiratory 25 H 25 H 24 Rate Blood Pressure 120/81 120/81 120/81 O2 Sat by Pulse 99 98 99 Oximetry 05/29/18 05/29/18 05/29/18 02:16 02:30 02:46 Temperature Pulse Rate 119 H 118 H 119 H Pulse Rate [ From Monitor] Respiratory 31 H 25 H 26 H Rate Blood Pressure 117/87 117/87 117/87 O2 Sat by Pulse 97 98 98 Oximetry 05/29/18 05/29/18 05/29/18 03:00 03:16 03:22 Temperature Pulse Rate 125 H 126 H Pulse Rate [ From Monitor] Respiratory 32 H 31 H 32 H Rate Blood Pressure 113/92 113/92 O2 Sat by Pulse 98 Oximetry 05/29/18 05/29/18 05/29/18 03:25 03:30 03:46 Temperature Pulse Rate 123 H 122 H 121 H Pulse Rate [ From Monitor] Respiratory 27 H 27 H Rate Blood Pressure 113/92 113/92 113/92 O2 Sat by Pulse 96 96 97 Oximetry 05/29/18 05/29/18 05/29/18 04:00 04:16 04:30 Temperature Pulse Rate 122 H 121 H 121 H Pulse Rate [ From Monitor] Respiratory 28 H 27 H 28 H Rate Blood Pressure 106/82 106/82 106/82 O2 Sat by Pulse 95 96 96 Oximetry 05/29/18 05/29/18 05/29/18 04:46 05:00 05:16 Temperature Pulse Rate 127 H 122 H 123 H Pulse Rate [ 115 H From Monitor] Respiratory 32 H 27 H 30 H Rate Blood Pressure 106/82 119/89 119/89 O2 Sat by Pulse 97 96 98 Oximetry 05/29/18 05/29/18 05/29/18 05:30 05:46 06:10 Temperature Pulse Rate 127 H 123 H 121 H Pulse Rate [ From Monitor] Respiratory 30 H 28 H Rate Blood Pressure 119/89 119/89 131/98 O2 Sat by Pulse 98 97 Oximetry 05/29/18 05/29/18 05/29/18 08:19 08:23 10:28 Temperature Pulse Rate 130 H 125 H 128 H Pulse Rate [ From Monitor] Respiratory 31 H Rate Blood Pressure 128/82 128/82 128/82 O2 Sat by Pulse 98 98 Oximetry 05/29/18 11:09 Temperature Pulse Rate 112 H Pulse Rate [ From Monitor] Respiratory 31 H Rate Blood Pressure 122/85 O2 Sat by Pulse 100 Oximetry - General Appearance General appearance: well-developed, appears stated age, intubated, other (on vent, FiO2 40%, right groin dialysis catheter) EENT: ATNC, PERRL Neck: supple Respiratory: Present: Clear to Ascultation Cardiology: regular, S1S2, no murmurs Gastrointestinal: normoactive bowel sounds, no tenderness, distended, other ( ostomy, drain and bilateral nephrsotomy noted) Integumentary: no rash, warm and dry Neurologic: other (alert, able to move extremities) Musculoskeletal: other - Lab 05/28/18 05:00 05/29/18 04:00 Most recent lab results Calcium 7.7 mg/dL (8.4-10.2) L 05/29/18 04:00 Phosphorus 4.20 mg/dL (2.5-4.5) D 05/29/18 04:00 Magnesium 1.50 mg/dL (1.7-2.3) L 05/29/18 04:00 Urine Creatinine 66.0 mg/dL (0.1-20.0) H 05/13/18 19:39 Urine Sodium 60 mmol/L 05/13/18 19:39 Urine Total Protein 24 mg/dL (5-11.8) H 05/13/18 19:39
[2018-05-29] MEDS ORDERED: CALCIUM GLUCONATE 2,000 MG in NACL 0.9% 100 ML IV ONE (12:00)
[2018-05-29] MEDS ORDERED: MAGNESIUM SULFATE 2GM/50ML 2 GM/50 ML BAG IV ONE (12:00)
--- NOTE | 2018-05-29 13:21 | Progress Note ---
Assessment and Plan Acute hypoxemic respiratory failure, possibly secondary to 2. Bilateral pneumonia, possibly aspiration. Sepsis syndrome. 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 Acute deep venous thrombosis. Hypertensive urgency. Hyperkalemia, now resolved. Moderate to severe protein calorie malnutrition Hypernatremia. Hypochloremia. Anemia, normocytic. (ABLA) - continue daily SBT's (on PSV 25/02 and tolerating well so far now) - resumed VTE prophylaxis with heparin - continue supplemental oxygen to keep sats > 90% - VAP bundle addressed - continue bronchodilators with pulmonary hygiene per RT - HD/UF for toxin and volume clearance - daily SAT's - continue anti-infective's per ID recs (Cefepime, Zyvox, flagyl) - continue TPN for now (enteral nutrition once cleared by surgery) - Malignancy per heme-oncologist - continue mobility protocol for pressure ulcer prophylaxis - s/p surgery 05/26 (had ex-lap; matted abdominal organs, pus - Enterostomy tube decompression,loop colostomy and large triple lumen sump drainage of pelvis) - s/p bilateral nephrostomy tubes placed 05/14/[address] Freeman. - continue other care per attending / other consultants - consider paracentesis - continue other care per attending / other consultants The high probability of a clinically significant, sudden or life threatening deterioration of the [respiratory,cardiac, urologic and renal] system(s) required my full and direct attention, intervention and personal management. The aggregate critical care time was [32] minutes without overlap. Time includes spent on; [x] Data Review and interpretation [x] Patient assessment and monitoring of vital signs [x] Documentation [x] Medication orders and management Subjective Date of service: 05/29/18 Principal diagnosis: Acute Hypoxemic Resp Failure; Sepsis Syndrome; Acute VTE; Prostate Cancer Interval history: Patient is seen today for: Acute Hypoxemic Resp Failure; Sepsis Syndrome; Acute VTE; Prostate Cancer Seen and examined at bedside; 24hour events reviewed; nursing and respiratory care staff consulted; no adverse overnight events reported to me; resting peacefully; tenuously tolerating SBT; nods head "No" to pain question; remains on TPN; no emesis or overt aspiration and no gross bleeding noted. Still making some urine Objective Vital Signs - 12hr 05/29/18 05/29/18 05/29/18 01:30 01:46 02:00 Pulse Rate 115 H 115 H 112 H Pulse Rate [ From Monitor] Respiratory 25 H 25 H 24 Rate Blood Pressure 120/81 120/81 120/81 O2 Sat by Pulse 99 98 99 Oximetry 05/29/18 05/29/18 05/29/18 02:16 02:30 02:46 Pulse Rate 119 H 118 H 119 H Pulse Rate [ From Monitor] Respiratory 31 H 25 H 26 H Rate Blood Pressure 117/87 117/87 117/87 O2 Sat by Pulse 97 98 98 Oximetry 05/29/18 05/29/18 05/29/18 03:00 03:16 03:22 Pulse Rate 125 H 126 H Pulse Rate [ From Monitor] Respiratory 32 H 31 H 32 H Rate Blood Pressure 113/92 113/92 O2 Sat by Pulse 98 Oximetry 05/29/18 05/29/18 05/29/18 03:25 03:30 03:46 Pulse Rate 123 H 122 H 121 H Pulse Rate [ From Monitor] Respiratory 27 H 27 H Rate Blood Pressure 113/92 113/92 113/92 O2 Sat by Pulse 96 96 97 Oximetry 05/29/18 05/29/18 05/29/18 04:00 04:16 04:30 Pulse Rate 122 H 121 H 121 H Pulse Rate [ From Monitor] Respiratory 28 H 27 H 28 H Rate Blood Pressure 106/82 106/82 106/82 O2 Sat by Pulse 95 96 96 Oximetry 05/29/18 05/29/18 05/29/18 04:46 05:00 05:16 Pulse Rate 127 H 122 H 123 H Pulse Rate [ 115 H From Monitor] Respiratory 32 H 27 H 30 H Rate Blood Pressure 106/82 119/89 119/89 O2 Sat by Pulse 97 96 98 Oximetry 05/29/18 05/29/18 05/29/18 05:30 05:46 06:10 Pulse Rate 127 H 123 H 121 H Pulse Rate [ From Monitor] Respiratory 30 H 28 H Rate Blood Pressure 119/89 119/89 131/98 O2 Sat by Pulse 98 97 Oximetry 05/29/18 05/29/18 05/29/18 08:00 08:19 08:23 Pulse Rate 130 H 125 H Pulse Rate [ 122 H From Monitor] Respiratory 16 31 H Rate Blood Pressure 128/82 128/82 O2 Sat by Pulse 98 98 98 Oximetry 05/29/18 05/29/18 10:28 11:09 Pulse Rate 128 H 112 H Pulse Rate [ From Monitor] Respiratory 31 H Rate Blood Pressure 128/82 122/85 O2 Sat by Pulse 100 Oximetry Constitutional: alert, other (chronically ill looking middle aged AAM, normocephalic and atraumatic) Eyes: non-icteric ENT: oropharynx moist, other (ETT 23 cm BEATRIS) Neck: supple, no lymphadenopathy, no JVD, other (no thyromegaly) Effort: mildly labored Ascultation: Bilateral: diminished breath sounds, rhonchi (scant in bases) Percussion: Bilateral: not dull Cardiovascular: regular rate and rhythm, other (No R/M) Gastrointestinal: hypoactive bowel sounds, soft, tender (mild), other (Distended ; No palpable HSM) Integumentary: other (poor turgor) Extremities: no cyanosis, no edema, pulses normal, no ischemia or petechiae Neurologic: non-focal exam, pupils equal and round, CN II-XII normal, other ( weak) Psychiatric: mood appropriate, affect normal CBC and BMP: 05/30/18 05:15 05/30/18 05:15 ABG, PT/INR, D-dimer: ABG POC ABG pH 7.471 (7.35-7.45) H 05/29/18 03:35 POC ABG pCO2 35.1 (35-45) 05/29/18 03:35 POC ABG pO2 78 (80-105) L 05/29/18 03:35 POC ABG HCO3 25.6 05/29/18 03:35 POC ABG Total CO2 27 05/29/18 03:35 POC ABG O2 Sat 96 05/29/18 03:35 PT/INR, D-dimer PT 18.3 Sec. (12.2-14.9) H 05/23/18 09:03 INR 1.43 (0.87-1.13) H 05/23/18 09:03 Abnormal lab findings: Abnormal Labs 05/13/18 05/13/18 05/13/18 04:27 04:27 19:39 WBC RBC 3.13 L Hgb 9.4 L Hct 26.8 L MCHC 35 H RDW Lymph % (Auto) Clarke % (Auto) 9.6 H Lymph # Clarke # Seg Neutrophils % Seg Neuts % (Manual) Lymphocytes % (Manual) Seg Neutrophils # Seg Neutrophils # Man Lymphocytes # (Manual) PT INR APTT POC ABG pH POC ABG pCO2 POC ABG pO2 Sodium 132 L Potassium 5.5 H Chloride 94.1 L Carbon Dioxide 19 L BUN 72 H Creatinine 14.4 H Glucose POC Glucose Lactic Acid Calcium Phosphorus Magnesium Iron TIBC AST ALT Alkaline Phosphatase Total Creatine Kinase C-Reactive Protein Total Protein Albumin 2.8 L Folate PTH Intact Urine WBC (Auto) Urine Creatinine 66.0 H Urine Chloride 27.8 L Urine Total Protein 24 H Vancomycin Trough Crossmatch 05/13/18 05/14/18 05/14/18 20:00 05:05 05:05 WBC RBC Hgb Hct MCHC RDW Lymph % (Auto) Clarke % (Auto) Lymph # Clarke # Seg Neutrophils % Seg Neuts % (Manual) Lymphocytes % (Manual) Seg Neutrophils # Seg Neutrophils # Man Lymphocytes # (Manual) PT INR APTT POC ABG pH POC ABG pCO2 POC ABG pO2 Sodium 132 L 131 L Potassium 5.2 H 5.8 H Chloride 93.0 L 95.6 L Carbon Dioxide 19 L 20 L BUN 74 H 81 H Creatinine 15.0 H 16.6 H Glucose 134 H 127 H POC Glucose Lactic Acid Calcium 8.2 L 7.9 L Phosphorus 6.30 H Magnesium Iron TIBC AST ALT Alkaline Phosphatase Total Creatine Kinase 236 H C-Reactive Protein Total Protein Albumin Folate PTH Intact 65.37 H Urine WBC (Auto) Urine Creatinine Urine Chloride Urine Total Protein Vancomycin Trough Crossmatch 05/14/18 05/14/18 05/14/18 09:28 10:56 13:29 WBC RBC Hgb Hct MCHC RDW Lymph % (Auto) Clarke % (Auto) Lymph # Clarke # Seg Neutrophils % Seg Neuts % (Manual) Lymphocytes % (Manual) Seg Neutrophils # Seg Neutrophils # Man Lymphocytes # (Manual) PT INR APTT 38.2 H POC ABG pH POC ABG pCO2 POC ABG pO2 Sodium Potassium Chloride Carbon Dioxide BUN Creatinine Glucose POC Glucose 127 H 126 H Lactic Acid Calcium Phosphorus Magnesium Iron TIBC AST ALT Alkaline Phosphatase Total Creatine Kinase C-Reactive Protein Total Protein Albumin Folate PTH Intact Urine WBC (Auto) Urine Creatinine Urine Chloride Urine Total Protein Vancomycin Trough Crossmatch 05/15/18 05/15/18 05/16/18 08:06 08:06 07:02 WBC RBC 2.84 L 2.74 L Hgb 8.5 L 8.5 L Hct 24.2 L 23.5 L MCHC 35 H 36 H RDW Lymph % (Auto) Clarke % (Auto) 10.4 H 11.0 H Lymph # 1.1 L Clarke # 0.9 H Seg Neutrophils % 72.6 H Seg Neuts % (Manual) Lymphocytes % (Manual) Seg Neutrophils # Seg Neutrophils # Man Lymphocytes # (Manual) PT INR APTT POC ABG pH POC ABG pCO2 POC ABG pO2 Sodium Potassium Chloride Carbon Dioxide 19 L BUN 66 H Creatinine 12.0 H Glucose 115 H POC Glucose Lactic Acid Calcium 8.1 L Phosphorus Magnesium Iron TIBC AST ALT Alkaline Phosphatase Total Creatine Kinase C-Reactive Protein Total Protein Albumin Folate PTH Intact Urine WBC (Auto) Urine Creatinine Urine Chloride Urine Total Protein Vancomycin Trough Crossmatch 05/16/18 05/16/18 05/17/18 07:02 07:02 05:08 WBC RBC 2.78 L Hgb 8.2 L Hct 23.9 L MCHC RDW Lymph % (Auto) Clarke % (Auto) 13.9 H Lymph # Clarke # 0.9 H Seg Neutrophils % Seg Neuts % (Manual) Lymphocytes % (Manual) Seg Neutrophils # Seg Neutrophils # Man Lymphocytes # (Manual) PT INR APTT POC ABG pH POC ABG pCO2 POC ABG pO2 Sodium Potassium Chloride Carbon Dioxide BUN 28 H Creatinine 2.4 H D Glucose POC Glucose Lactic Acid Calcium 8.3 L Phosphorus Magnesium 1.50 L Iron 24 L TIBC 160 L AST ALT Alkaline Phosphatase Total Creatine Kinase C-Reactive Protein Total Protein Albumin Folate 5.39 L PTH Intact Urine WBC (Auto) Urine Creatinine Urine Chloride Urine Total Protein Vancomycin Trough Crossmatch 05/17/18 05/18/18 05/18/18 05:08 05:57 05:57 WBC RBC 2.79 L Hgb 8.3 L Hct 24.0 L MCHC 35 H RDW Lymph % (Auto) Clarke % (Auto) 11.8 H Lymph # Clarke # 0.9 H Seg Neutrophils % Seg Neuts % (Manual) Lymphocytes % (Manual) Seg Neutrophils # Seg Neutrophils # Man Lymphocytes # (Manual) PT INR APTT POC ABG pH POC ABG pCO2 POC ABG pO2 Sodium Potassium Chloride Carbon Dioxide BUN Creatinine Glucose POC Glucose Lactic Acid Calcium 7.7 L 8.0 L Phosphorus Magnesium 1.60 L Iron TIBC AST ALT Alkaline Phosphatase Total Creatine Kinase C-Reactive Protein Total Protein Albumin Folate PTH Intact Urine WBC (Auto) Urine Creatinine Urine Chloride Urine Total Protein Vancomycin Trough Crossmatch 05/19/18 05/19/18 05/20/18 05:33 05:33 05:38 WBC RBC 2.95 L Hgb 8.8 L Hct 25.8 L MCHC RDW Lymph % (Auto) 10.1 L Clarke % (Auto) Lymph # 1.1 L Clarke # Seg Neutrophils % 85.2 H Seg Neuts % (Manual) Lymphocytes % (Manual) Seg Neutrophils # 9.0 H Seg Neutrophils # Man Lymphocytes # (Manual) PT INR APTT POC ABG pH POC ABG pCO2 POC ABG pO2 Sodium 135 L Potassium Chloride Carbon Dioxide BUN Creatinine Glucose 132 H POC Glucose Lactic Acid Calcium 7.8 L 8.3 L Phosphorus Magnesium 1.40 L Iron TIBC AST ALT Alkaline Phosphatase Total Creatine Kinase C-Reactive Protein Total Protein Albumin Folate PTH Intact Urine WBC (Auto) Urine Creatinine Urine Chloride Urine Total Protein Vancomycin Trough Crossmatch 05/21/18 05/21/18 05/22/18 04:46 15:30 06:49 WBC 20.0 H RBC 2.70 L Hgb 7.8 L Hct 23.3 L MCHC RDW Lymph % (Auto) Clarke % (Auto) Lymph # Clarke # Seg Neutrophils % Seg Neuts % (Manual) 85.0 H Lymphocytes % (Manual) 4.0 L Seg Neutrophils # Seg Neutrophils # Man 17.0 H Lymphocytes # (Manual) 0.8 L PT INR APTT POC ABG pH POC ABG pCO2 POC ABG pO2 Sodium 135 L Potassium 3.5 L Chloride Carbon Dioxide 21 L BUN 22 H Creatinine Glucose POC Glucose Lactic Acid Calcium 8.1 L Phosphorus Magnesium Iron TIBC AST ALT Alkaline Phosphatase Total Creatine Kinase C-Reactive Protein Total Protein Albumin Folate PTH Intact Urine WBC (Auto) 28.0 H Urine Creatinine Urine Chloride Urine Total Protein Vancomycin Trough Crossmatch 05/22/18 05/22/18 05/23/18 06:49 11:23 09:03 WBC RBC Hgb Hct MCHC RDW Lymph % (Auto) Clarke % (Auto) Lymph # Clarke # Seg Neutrophils % Seg Neuts % (Manual) Lymphocytes % (Manual) Seg Neutrophils # Seg Neutrophils # Man Lymphocytes # (Manual) PT INR APTT POC ABG pH POC ABG pCO2 POC ABG pO2 Sodium 134 L Potassium 3.5 L Chloride Carbon Dioxide 21 L BUN 35 H 36 H Creatinine 1.7 H Glucose 107 H POC Glucose Lactic Acid Calcium 7.9 L Phosphorus Magnesium 2.50 H Iron TIBC AST ALT Alkaline Phosphatase Total Creatine Kinase C-Reactive Protein Total Protein Albumin Folate PTH Intact Urine WBC (Auto) Urine Creatinine Urine Chloride Urine Total Protein Vancomycin Trough Crossmatch See Detail 05/23/18 05/23/18 05/23/18 09:03 09:03 17:34 WBC 26.3 H RBC 3.57 L Hgb 10.4 L Hct 31.1 L D MCHC RDW Lymph % (Auto) Clarke % (Auto) Lymph # Clarke # Seg Neutrophils % Seg Neuts % (Manual) Lymphocytes % (Manual) Seg Neutrophils # Seg Neutrophils # Man Lymphocytes # (Manual) PT 18.3 H INR 1.43 H APTT 40.0 H POC ABG pH POC ABG pCO2 POC ABG pO2 Sodium Potassium Chloride Carbon Dioxide BUN Creatinine Glucose POC Glucose 108 H Lactic Acid Calcium Phosphorus Magnesium Iron TIBC AST ALT Alkaline Phosphatase Total Creatine Kinase C-Reactive Protein Total Protein Albumin Folate PTH Intact Urine WBC (Auto) Urine Creatinine Urine Chloride Urine Total Protein Vancomycin Trough Crossmatch 05/23/18 05/24/18 05/24/18 21:14 04:43 08:04 WBC RBC Hgb Hct MCHC RDW Lymph % (Auto) Clarke % (Auto) Lymph # Clarke # Seg Neutrophils % Seg Neuts % (Manual) Lymphocytes % (Manual) Seg Neutrophils # Seg Neutrophils # Man Lymphocytes # (Manual) PT INR APTT POC ABG pH POC ABG pCO2 POC ABG pO2 Sodium 146 H Potassium Chloride 108.6 H Carbon Dioxide BUN 33 H Creatinine Glucose 109 H POC Glucose 110 H 106 H Lactic Acid Calcium 8.3 L Phosphorus Magnesium 2.50 H Iron TIBC AST ALT Alkaline Phosphatase Total Creatine Kinase C-Reactive Protein Total Protein Albumin Folate PTH Intact Urine WBC (Auto) Urine Creatinine Urine Chloride Urine Total Protein Vancomycin Trough Crossmatch 05/25/18 05/25/18 05/25/18 05:42 05:49 19:50 WBC RBC Hgb Hct MCHC RDW Lymph % (Auto) Clarke % (Auto) Lymph # Clarke # Seg Neutrophils % Seg Neuts % (Manual) Lymphocytes % (Manual) Seg Neutrophils # Seg Neutrophils # Man Lymphocytes # (Manual) PT INR APTT POC ABG pH POC ABG pCO2 POC ABG pO2 Sodium 150 H Potassium Chloride 112.5 H Carbon Dioxide BUN 34 H Creatinine Glucose 102 H POC Glucose 107 H Lactic Acid Calcium Phosphorus Magnesium Iron TIBC AST ALT Alkaline Phosphatase Total Creatine Kinase C-Reactive Protein 34.50 H Total Protein Albumin Folate PTH Intact Urine WBC (Auto) Urine Creatinine Urine Chloride Urine Total Protein Vancomycin Trough Crossmatch 05/25/18 05/25/18 05/25/18 19:50 21:05 22:46 WBC RBC Hgb Hct MCHC RDW Lymph % (Auto) Clarke % (Auto) Lymph # Clarke # Seg Neutrophils % Seg Neuts % (Manual) Lymphocytes % (Manual) Seg Neutrophils # Seg Neutrophils # Man Lymphocytes # (Manual) PT INR APTT POC ABG pH 7.483 H POC ABG pCO2 24.0 L POC ABG pO2 72 L Sodium Potassium Chloride Carbon Dioxide BUN Creatinine Glucose POC Glucose Lactic Acid 5.90 H* Calcium Phosphorus Magnesium Iron TIBC AST ALT Alkaline Phosphatase Total Creatine Kinase C-Reactive Protein Total Protein Albumin Folate PTH Intact Urine WBC (Auto) Urine Creatinine Urine Chloride Urine Total Protein Vancomycin Trough 25.1 H Crossmatch 05/25/18 05/26/18 05/26/18 22:46 00:21 00:51 WBC RBC Hgb Hct MCHC RDW Lymph % (Auto) Clarke % (Auto) Lymph # Clarke # Seg Neutrophils % Seg Neuts % (Manual) Lymphocytes % (Manual) Seg Neutrophils # Seg Neutrophils # Man Lymphocytes # (Manual) PT INR APTT POC ABG pH POC ABG pCO2 POC ABG pO2 Sodium Potassium Chloride Carbon Dioxide BUN Creatinine Glucose POC Glucose 133 H Lactic Acid 8.10 H* 6.20 H* Calcium Phosphorus Magnesium Iron TIBC AST ALT Alkaline Phosphatase Total Creatine Kinase C-Reactive Protein Total Protein Albumin Folate PTH Intact Urine WBC (Auto) Urine Creatinine Urine Chloride Urine Total Protein Vancomycin Trough Crossmatch 05/26/18 05/26/18 05/26/18 01:13 02:24 02:24 WBC 18.7 H RBC Hgb 11.6 L Hct MCHC RDW Lymph % (Auto) Clarke % (Auto) Lymph # Clarke # Seg Neutrophils % Seg Neuts % (Manual) Lymphocytes % (Manual) Seg Neutrophils # Seg Neutrophils # Man Lymphocytes # (Manual) PT INR APTT POC ABG pH POC ABG pCO2 POC ABG pO2 Sodium 147 H Potassium 6.2 H* D Chloride 111.9 H Carbon Dioxide 19 L BUN 80 H Creatinine 5.1 H D Glucose 112 H POC Glucose Lactic Acid 5.20 H* Calcium 6.7 L D Phosphorus Magnesium Iron TIBC AST ALT Alkaline Phosphatase Total Creatine Kinase C-Reactive Protein Total Protein Albumin Folate PTH Intact Urine WBC (Auto) Urine Creatinine Urine Chloride Urine Total Protein Vancomycin Trough Crossmatch 05/26/18 05/26/18 05/26/18 04:20 04:20 05:39 WBC RBC Hgb Hct MCHC RDW Lymph % (Auto) Clarke % (Auto) Lymph # Clarke # Seg Neutrophils % Seg Neuts % (Manual) Lymphocytes % (Manual) Seg Neutrophils # Seg Neutrophils # Man Lymphocytes # (Manual) PT INR APTT POC ABG pH POC ABG pCO2 POC ABG pO2 Sodium 150 H Potassium Chloride 110.0 H Carbon Dioxide 19 L BUN 66 H Creatinine Glucose 166 H POC Glucose 187 H Lactic Acid 5.10 H* Calcium 6.9 L Phosphorus 6.70 H D Magnesium Iron TIBC AST ALT Alkaline Phosphatase Total Creatine Kinase C-Reactive Protein Total Protein Albumin Folate PTH Intact Urine WBC (Auto) Urine Creatinine Urine Chloride Urine Total Protein Vancomycin Trough Crossmatch 05/26/18 05/26/18 05/26/18 06:02 07:29 11:00 WBC RBC Hgb Hct MCHC RDW Lymph % (Auto) Clarke % (Auto) Lymph # Clarke # Seg Neutrophils % Seg Neuts % (Manual) Lymphocytes % (Manual) Seg Neutrophils # Seg Neutrophils # Man Lymphocytes # (Manual) PT INR APTT POC ABG pH POC ABG pCO2 28.8 L POC ABG pO2 Sodium Potassium Chloride Carbon Dioxide BUN Creatinine Glucose POC Glucose Lactic Acid 4.80 H* 3.80 H* Calcium Phosphorus Magnesium Iron TIBC AST ALT Alkaline Phosphatase Total Creatine Kinase C-Reactive Protein Total Protein Albumin Folate PTH Intact Urine WBC (Auto) Urine Creatinine Urine Chloride Urine Total Protein Vancomycin Trough Crossmatch 05/26/18 05/26/18 05/26/18 11:01 12:28 18:00 WBC RBC Hgb Hct MCHC RDW Lymph % (Auto) Clarke % (Auto) Lymph # Clarke # Seg Neutrophils % Seg Neuts % (Manual) Lymphocytes % (Manual) Seg Neutrophils # Seg Neutrophils # Man Lymphocytes # (Manual) PT INR APTT POC ABG pH POC ABG pCO2 POC ABG pO2 Sodium 150 H 151 H Potassium 5.3 H D 6.1 H* Chloride 110.3 H 117.0 H Carbon Dioxide 21 L 20 L BUN 75 H 77 H Creatinine 4.3 H D 4.6 H Glucose 161 H POC Glucose 114 H Lactic Acid Calcium 7.5 L 6.7 L Phosphorus Magnesium Iron TIBC AST 1041 H ALT 406 H Alkaline Phosphatase 281 H Total Creatine Kinase C-Reactive Protein Total Protein 4.4 L Albumin 1.3 L Folate PTH Intact Urine WBC (Auto) Urine Creatinine Urine Chloride Urine Total Protein Vancomycin Trough Crossmatch 05/26/18 05/26/18 05/27/18 18:02 19:17 01:01 WBC 21.7 H RBC 2.70 L Hgb 7.8 L D Hct 24.6 L D MCHC RDW 15.3 H Lymph % (Auto) Clarke % (Auto) Lymph # Clarke # Seg Neutrophils % Seg Neuts % (Manual) 94.0 H Lymphocytes % (Manual) 3.0 L Seg Neutrophils # Seg Neutrophils # Man 20.4 H Lymphocytes # (Manual) 0.7 L PT INR APTT POC ABG pH 7.159 L 7.205 L POC ABG pCO2 54.5 H 53.0 H POC ABG pO2 252 H Sodium Potassium Chloride Carbon Dioxide BUN Creatinine Glucose POC Glucose Lactic Acid Calcium Phosphorus Magnesium Iron TIBC AST ALT Alkaline Phosphatase Total Creatine Kinase C-Reactive Protein Total Protein Albumin Folate PTH Intact Urine WBC (Auto) Urine Creatinine Urine Chloride Urine Total Protein Vancomycin Trough Crossmatch 05/27/18 05/27/18 05/27/18 05:15 05:15 06:11 WBC 24.9 H RBC 2.86 L Hgb 8.1 L Hct 25.9 L MCHC RDW 15.5 H Lymph % (Auto) Clarke % (Auto) Lymph # Clarke # Seg Neutrophils % Seg Neuts % (Manual) Lymphocytes % (Manual) Seg Neutrophils # Seg Neutrophils # Man Lymphocytes # (Manual) PT INR APTT POC ABG pH 7.265 L POC ABG pCO2 46.2 H POC ABG pO2 111 H Sodium 149 H Potassium 6.9 H* Chloride 113.5 H Carbon Dioxide BUN 89 H Creatinine 5.2 H Glucose 118 H POC Glucose Lactic Acid Calcium 7.0 L Phosphorus 9.70 H D Magnesium Iron TIBC AST 876 H ALT 408 H Alkaline Phosphatase Total Creatine Kinase C-Reactive Protein Total Protein 5.2 L Albumin 1.5 L Folate PTH Intact Urine WBC (Auto) Urine Creatinine Urine Chloride Urine Total Protein Vancomycin Trough Crossmatch 05/27/18 05/27/18 05/27/18 08:48 10:22 10:22 WBC RBC Hgb Hct MCHC RDW Lymph % (Auto) Clarke % (Auto) Lymph # Clarke # Seg Neutrophils % Seg Neuts % (Manual) Lymphocytes % (Manual) Seg Neutrophils # Seg Neutrophils # Man Lymphocytes # (Manual) PT INR APTT POC ABG pH POC ABG pCO2 POC ABG pO2 Sodium 146 H Potassium 6.1 H* Chloride 108.2 H Carbon Dioxide 21 L BUN 88 H Creatinine 5.6 H Glucose 163 H POC Glucose 164 H Lactic Acid Calcium 6.7 L Phosphorus Magnesium Iron TIBC AST ALT Alkaline Phosphatase Total Creatine Kinase C-Reactive Protein 40.70 H Total Protein Albumin Folate PTH Intact Urine WBC (Auto) Urine Creatinine Urine Chloride Urine Total Protein Vancomycin Trough Crossmatch 05/27/18 05/27/18 05/27/18 17:39 23:27 Unknown WBC RBC Hgb Hct MCHC RDW Lymph % (Auto) Clarke % (Auto) Lymph # Clarke # Seg Neutrophils % Seg Neuts % (Manual) Lymphocytes % (Manual) Seg Neutrophils # Seg Neutrophils # Man Lymphocytes # (Manual) PT INR APTT POC ABG pH POC ABG pCO2 POC ABG pO2 Sodium Potassium Chloride Carbon Dioxide BUN Creatinine Glucose POC Glucose 59 L 132 H Lactic Acid Calcium Phosphorus Magnesium Iron TIBC AST ALT Alkaline Phosphatase Total Creatine Kinase C-Reactive Protein Total Protein Albumin Folate PTH Intact Urine WBC (Auto) 120.0 H Urine Creatinine Urine Chloride Urine Total Protein Vancomycin Trough Crossmatch 05/28/18 05/28/18 05/28/18 04:32 05:00 05:00 WBC 26.5 H RBC 2.69 L Hgb 7.7 L Hct 23.6 L MCHC RDW Lymph % (Auto) Clarke % (Auto) Lymph # Clarke # Seg Neutrophils % Seg Neuts % (Manual) 96.0 H Lymphocytes % (Manual) 0 L Seg Neutrophils # Seg Neutrophils # Man 25.4 H Lymphocytes # (Manual) 0.0 L PT INR APTT POC ABG pH POC ABG pCO2 POC ABG pO2 134 H Sodium Potassium Chloride Carbon Dioxide BUN 69 H Creatinine 4.4 H Glucose 118 H POC Glucose Lactic Acid Calcium 8.0 L D Phosphorus 6.80 H D Magnesium Iron TIBC AST ALT Alkaline Phosphatase Total Creatine Kinase C-Reactive Protein Total Protein Albumin Folate PTH Intact Urine WBC (Auto) Urine Creatinine Urine Chloride Urine Total Protein Vancomycin Trough Crossmatch 05/28/18 05/28/18 05/28/18 05:27 13:04 17:56 WBC RBC Hgb Hct MCHC RDW Lymph % (Auto) Clarke % (Auto) Lymph # Clarke # Seg Neutrophils % Seg Neuts % (Manual) Lymphocytes % (Manual) Seg Neutrophils # Seg Neutrophils # Man Lymphocytes # (Manual) PT INR APTT POC ABG pH POC ABG pCO2 POC ABG pO2 Sodium Potassium Chloride Carbon Dioxide BUN Creatinine Glucose POC Glucose 128 H 155 H 110 H Lactic Acid Calcium Phosphorus Magnesium Iron TIBC AST ALT Alkaline Phosphatase Total Creatine Kinase C-Reactive Protein Total Protein Albumin Folate PTH Intact Urine WBC (Auto) Urine Creatinine Urine Chloride Urine Total Protein Vancomycin Trough Crossmatch 05/29/18 05/29/18 05/29/18 03:35 04:00 11:51 WBC RBC Hgb Hct MCHC RDW Lymph % (Auto) Clarke % (Auto) Lymph # Clarke # Seg Neutrophils % Seg Neuts % (Manual) Lymphocytes % (Manual) Seg Neutrophils # Seg Neutrophils # Man Lymphocytes # (Manual) PT INR APTT POC ABG pH 7.471 H POC ABG pCO2 POC ABG pO2 78 L Sodium Potassium Chloride Carbon Dioxide BUN 50 H Creatinine 3.9 H Glucose POC Glucose 131 H Lactic Acid Calcium 7.7 L Phosphorus Magnesium 1.50 L Iron TIBC AST 218 H ALT 204 H Alkaline Phosphatase Total Creatine Kinase C-Reactive Protein Total Protein 5.4 L Albumin 1.6 L Folate PTH Intact Urine WBC (Auto) Urine Creatinine Urine Chloride Urine Total Protein Vancomycin Trough Crossmatch Chest x-ray: image reviewed (no focal infiltrate; ETT in good position) Allied health notes reviewed: nursing
[2018-05-29] MEDS ORDERED: TPN ADULT 2,016 ML IV SCH (20:00)
[2018-05-30] MEDS: HumuLIN R SUB-Q SCH ×5 (00:21→17:14)
[2018-05-30] MEDS: ATIVAN IV PRN (01:09)
[2018-05-30] MEDS: MORPHINE IV PRN ×4 (01:09→21:55)
[2018-05-30] MEDS: LOPRESSOR IV SCH ×5 (02:30→21:57)
--- NOTE | 2018-05-30 05:44 | XRay Report ---
FINAL REPORT EXAM: XR ABDOMEN 1V AP HISTORY: NGT placement TECHNIQUE: A portable supine view of the upper abdomen was obtained. FINDINGS: The tip of the NG tube is in the antrum of the stomach. There are bilateral percutaneous nephrostomy catheters noted. The bowel gas pattern reveals moderate distention of small-bowel loops. Partial mechanical small bowel obstruction cannot be excluded. The skeletal structures otherwise well maintained. IMPRESSION: The tip of the NG tube is in the antrum of the stomach. Distention of small-bowel loops suspicious for partial mechanical small bowel obstruction.
[2018-05-30] MEDS: APRESOLINE PO SCH ×3 (06:01→14:34)
[2018-05-30] MEDS: FLAGYL 500 MG/100 ML 500 MG/100 ML BAG IV SCH ×3 (06:09→21:58)
[2018-05-30 06:59] LABS: Hematocrit 21.9 % (35.5-45.6); Hemoglobin 7.4 gm/dl (11.8-15.2); Mean Corpuscular HGB Conc 34 % (32-34); Mean Corpuscular Hemoglobin 29 pg (28-32); Mean Corpuscular Volume 87 fl (84-94); Platelet Count 334 K/mm3 (140-440); Red Blood Count 2.53 M/mm3 (3.65-5.03); Red Cell Distribution Width 14.6 % (13.2-15.2)
[2018-05-30 07:24] LABS: Calcium 7.5 mg/dL (8.4-10.2)
[2018-05-30] MEDS: CATAPRES PO SCH (08:15)
[2018-05-30] MEDS: PEPCID PO SCH (08:15)
[2018-05-30] MEDS: ZOSYN/NS 2.25 GM/50ML 2.25 GM/50 ML BAG IV SCH (08:16)
--- NOTE | 2018-05-30 08:24 | Progress Note ---
Assessment and Plan 1. Acute kidney injury: Recurrent Acute kidney injury. Initial MARYLOU in the setting of bilateral hydronephrosis secondary to pelvic mass , now s/p bilateral nephrostomy. Patient required urgent hemodialysis 3 days ago due to worsening renal function and persistent hyperkalemia. Patient was last dialyzed on 05/28/18. Monitor for [employer] P[employer]ER needs. Renal prognosis is guarded. 2. Electrolytes: Hypernatremia, improving. Hyperkalemia, K level is better. 3. Bowel obstruction: S/p ostomy. 4. Bilateral hydronephrosis: S/p bilateral nephrostomy. S/p Cysto and drainage of abscess. 5. Respiratory failure: On vent. 6. Hypotension: BP is better. 7. Anemia. 8. 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 Subjective Date of service: 05/30/18 Principal diagnosis: pelvic mass Interval history: Patient was seen and examined at the bedside. Objective - Vital Signs Vital signs: Vital Signs - 12hr 05/29/18 05/29/18 05/29/18 20:30 20:45 21:00 Temperature Pulse Rate 116 H 120 H 112 H Pulse Rate [ From Monitor] Respiratory 27 H 31 H 30 H Rate Blood Pressure 130/86 130/86 132/94 O2 Sat by Pulse 97 100 96 Oximetry 05/29/18 05/29/18 05/29/18 21:14 21:15 21:30 Temperature Pulse Rate 122 H 119 H 120 H Pulse Rate [ From Monitor] Respiratory 29 H 31 H Rate Blood Pressure 132/94 132/94 128/90 O2 Sat by Pulse 99 95 Oximetry 05/29/18 05/29/18 05/29/18 21:45 22:00 22:15 Temperature Pulse Rate 120 H 111 H 112 H Pulse Rate [ From Monitor] Respiratory 32 H 34 H 29 H Rate Blood Pressure 128/90 134/92 134/92 O2 Sat by Pulse 99 99 99 Oximetry 05/29/18 05/29/18 05/29/18 22:30 22:45 23:00 Temperature Pulse Rate 112 H 112 H 109 H Pulse Rate [ From Monitor] Respiratory 30 H 27 H 29 H Rate Blood Pressure 136/94 136/94 134/91 O2 Sat by Pulse 97 98 98 Oximetry 05/29/18 05/29/18 05/29/18 23:15 23:30 23:32 Temperature Pulse Rate 108 H 113 H 113 H Pulse Rate [ From Monitor] Respiratory 22 35 H 33 H Rate Blood Pressure 134/91 138/98 136/94 O2 Sat by Pulse 98 100 98 Oximetry 05/29/18 05/29/18 05/29/18 23:34 23:37 23:45 Temperature 99.9 F H Pulse Rate 114 H 117 H Pulse Rate [ From Monitor] Respiratory 29 H Rate Blood Pressure 138/98 138/98 O2 Sat by Pulse 97 97 Oximetry 05/30/18 05/30/18 05/30/18 00:00 00:15 00:30 Temperature Pulse Rate 116 H 112 H 114 H Pulse Rate [ 125 H From Monitor] Respiratory 26 H 27 H 31 H Rate Blood Pressure 138/98 138/98 142/94 O2 Sat by Pulse 97 99 95 Oximetry 05/30/18 05/30/18 05/30/18 00:45 01:00 01:15 Temperature Pulse Rate 119 H 119 H 114 H Pulse Rate [ From Monitor] Respiratory 33 H 34 H 30 H Rate Blood Pressure 135/93 139/98 142/94 O2 Sat by Pulse 98 96 98 Oximetry 05/30/18 05/30/18 05/30/18 01:30 01:45 02:00 Temperature Pulse Rate 116 H 117 H 124 H Pulse Rate [ From Monitor] Respiratory 25 H 24 29 H Rate Blood Pressure 128/86 139/98 138/90 O2 Sat by Pulse 98 99 96 Oximetry 05/30/18 05/30/18 05/30/18 02:15 02:30 02:45 Temperature Pulse Rate 122 H 124 H 118 H Pulse Rate [ From Monitor] Respiratory 30 H 32 H 24 Rate Blood Pressure 138/90 146/100 146/100 O2 Sat by Pulse 98 94 98 Oximetry 05/30/18 05/30/18 05/30/18 02:55 03:00 03:15 Temperature 100.9 F H Pulse Rate 112 H 118 H Pulse Rate [ From Monitor] Respiratory 30 H 24 Rate Blood Pressure 143/97 146/100 O2 Sat by Pulse 96 98 Oximetry 05/30/18 05/30/18 05/30/18 03:30 03:45 04:00 Temperature Pulse Rate 120 H 117 H 114 H Pulse Rate [ 110 H From Monitor] Respiratory 34 H 25 H 28 H Rate Blood Pressure 142/99 142/99 135/90 O2 Sat by Pulse 96 98 97 Oximetry 05/30/18 05/30/18 05/30/18 04:15 04:30 04:45 Temperature Pulse Rate 111 H 109 H Pulse Rate [ From Monitor] Respiratory 22 22 Rate Blood Pressure 135/90 119/83 119/83 O2 Sat by Pulse 98 97 99 Oximetry 05/30/18 05/30/18 05/30/18 04:54 05:00 05:15 Temperature Pulse Rate 109 H 109 H 107 H Pulse Rate [ From Monitor] Respiratory 22 20 Rate Blood Pressure 119/83 117/74 119/83 O2 Sat by Pulse 100 99 Oximetry 05/30/18 05/30/18 05/30/18 05:30 05:45 06:00 Temperature Pulse Rate 109 H 105 H 105 H Pulse Rate [ From Monitor] Respiratory 18 20 22 Rate Blood Pressure 117/79 117/79 110/72 O2 Sat by Pulse 100 100 Oximetry 05/30/18 05/30/18 05/30/18 06:15 06:30 06:45 Temperature Pulse Rate 109 H 105 H 105 H Pulse Rate [ From Monitor] Respiratory 21 22 22 Rate Blood Pressure 110/72 114/74 114/74 O2 Sat by Pulse 100 99 100 Oximetry 05/30/18 05/30/18 05/30/18 06:56 07:00 07:15 Temperature Pulse Rate 103 H 104 H 108 H Pulse Rate [ From Monitor] Respiratory 22 22 Rate Blood Pressure 114/74 111/70 111/70 O2 Sat by Pulse 100 99 99 Oximetry 05/30/18 05/30/18 05/30/18 07:30 07:45 08:00 Temperature Pulse Rate 106 H 105 H 103 H Pulse Rate [ From Monitor] Respiratory 22 22 21 Rate Blood Pressure 118/79 111/70 113/71 O2 Sat by Pulse 100 100 Oximetry - General Appearance General appearance: well-developed, appears stated age, intubated, other (on vent, FiO2 40%, right groin dialysis catheter) EENT: ATNC, PERRL Neck: supple Respiratory: Present: Clear to Ascultation Cardiology: regular, S1S2, no murmurs Gastrointestinal: normoactive bowel sounds, distended, other (ostomy, drain and bilateral nephrostomy noted) Integumentary: no rash, warm and dry Neurologic: other (on restrains) Musculoskeletal: other (no edema) - Lab 05/30/18 05:15 05/30/18 05:15 Most recent lab results Calcium 7.5 mg/dL (8.4-10.2) L 05/30/18 05:15 Phosphorus 5.30 mg/dL (2.5-4.5) H D 05/30/18 05:15 Magnesium 2.00 mg/dL (1.7-2.3) 05/30/18 05:15 Urine Creatinine 66.0 mg/dL (0.1-20.0) H 05/13/18 19:39 Urine Sodium 60 mmol/L 05/13/18 19:39 Urine Total Protein 24 mg/dL (5-11.8) H 05/13/18 19:39
--- NOTE | 2018-05-30 08:27 | Hem/Onc Progress Note ---
Assessment and Plan #bowel obstruction - s/p diverting colostomy 05/26 sx notes -mentions matted mass #radiology Pelvic mass Large pelvic mass between bladder and rectum with large lymph nodes, s/p cystoscopy prostate area bx - prelim - sq cell ca # CT showed bowel obstruction - NGT - sx team following # anemia - PRBC as needed low folate on replacement # leukocytosis on 05/22 - we will follow - likely reactive # h/o Acute kidney injury due to pelvic mass - Nephrology following. Ultrasound Kidneys showed bilat hydronephrosis CT Abd shows Pelvic mass with multiple large lymph nodes Had bilateral nephrostomy tubes placed 05/14/[address] Freeman. renal function worsening - HD being done #Acute DVT right leg - below knee No anticoagulation for now because of bilateral nephrostomy tubes and acute abdo issues. 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 will await path - Patient Problems (1) Pelvic mass in male Current Visit: Yes Status: Acute Subjective Date of service: 05/30/18 Principal diagnosis: pelvic mass - anemia Interval history: pt in critical unit - on vent - NGT pt had diverting colostomy 05/26 on vent - awake central line in neck has colostomy - nephrostomy and abdo drain no BM in stomy Objective - Constitutional Vitals: Last Vital Signs Temp 100.9 F H 05/30/18 02:55 Pulse 103 H 05/30/18 08:00 Resp 21 05/30/18 08:00 BP 113/71 05/30/18 08:00 Pulse Ox 100 05/30/18 07:45 General appearance: mild distress Performance status: 4-completely disabled (on vent) - EENT Eyes: PERRL ENT: clear oral mucosa Lymph node exam: negative cervical, negative supraclavicular - Respiratory Respiratory effort: Positive: other (intubated) Respiratory: bilateral: CTA (anteriorly) - Cardiovascular Heart Sounds: Present: S1 & S2 Extremities: No edema - Gastrointestinal General gastrointestinal: Present: other (post op bandage and drain) Rectal Exam: deferred - Genitourinary Male genitourinary: Present: deferred - Integumentary Integumentary: warm - Labs Lab Results: Laboratory Results - last 24 hr 05/29/18 05/29/18 05/29/18 11:51 17:29 23:56 WBC RBC Hgb Hct MCV MCH MCHC RDW Plt Count POC ABG pH POC ABG pCO2 POC ABG pO2 POC ABG HCO3 POC ABG Total CO2 POC ABG O2 Sat POC ABG Base Excess FiO2 Sodium Potassium Chloride Carbon Dioxide Anion Gap BUN Creatinine Estimated GFR BUN/Creatinine Ratio Glucose POC Glucose 131 H 104 119 H Calcium Phosphorus Magnesium 05/30/18 05/30/18 05/30/18 04:54 05:07 05:15 WBC RBC Hgb Hct MCV MCH MCHC RDW Plt Count POC ABG pH 7.437 POC ABG pCO2 34.5 L POC ABG pO2 133 H POC ABG HCO3 23.3 POC ABG Total CO2 24 POC ABG O2 Sat 99 POC ABG Base Excess -1 FiO2 40 Sodium 135 L Potassium 4.1 Chloride 97.5 L Carbon Dioxide 22 Anion Gap 20 BUN 69 H Creatinine 5.4 H Estimated GFR 14 BUN/Creatinine Ratio 13 Glucose 105 H POC Glucose 115 H Calcium 7.5 L Phosphorus 5.30 H D Magnesium 2.00 05/30/18 05:15 WBC 16.2 H RBC 2.53 L Hgb 7.4 L Hct 21.9 L MCV 87 MCH 29 MCHC 34 RDW 14.6 Plt Count 334 POC ABG pH POC ABG pCO2 POC ABG pO2 POC ABG HCO3 POC ABG Total CO2 POC ABG O2 Sat POC ABG Base Excess FiO2 Sodium Potassium Chloride Carbon Dioxide Anion Gap BUN Creatinine Estimated GFR BUN/Creatinine Ratio Glucose POC Glucose Calcium Phosphorus Magnesium
[2018-05-30] MEDS: MAXIPIME/NS 2 GM/100 ML 2 GM/100 ML BAG IV SCH (09:19)
[2018-05-30] MEDS: HEPARIN SUB-Q SCH ×2 (09:25→21:57)
[2018-05-30] MEDS: FERROUS SULFATE PO SCH ×2 (09:25→22:00)
[2018-05-30] MEDS: PEPCID IV SCH (09:25)
[2018-05-30] MEDS: ZYVOX 600MG/300ML 600 MG/300 ML BAG IV SCH ×2 (10:12→21:58)
[2018-05-30] MEDS: FOLVITE PO SCH (10:12)
--- NOTE | 2018-05-30 11:06 | Progress Note ---
Assessment and Plan Acute hypoxemic respiratory failure, possibly secondary to 2. Bilateral pneumonia, possibly aspiration. Sepsis syndrome. 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 Acute deep venous thrombosis. Hypertensive urgency. Hyperkalemia, now resolved. Moderate to severe protein calorie malnutrition Hypernatremia. Hypochloremia. Anemia, normocytic. (ABLA) - Send stool for occult blood re: drop in H&H - repeat CBC in am - ABG on SBT +/- extubate - keep avila catheter in place for now re: obstructive uropathy and MARYLOU - resumed VTE prophylaxis with heparin - continue supplemental oxygen to keep sats > 90% - VAP bundle addressed - continue bronchodilators with pulmonary hygiene per RT - HD/UF for toxin and volume clearance - continue daily SBT's (on PSV 06/18 and tolerating well so far now) - daily SAT's - continue anti-infective's per ID recs (Cefepime, Zyvox, flagyl) - continue TPN for now (enteral nutrition once cleared by surgery) - Malignancy per heme-oncologist - continue mobility protocol for pressure ulcer prophylaxis - s/p surgery 05/26 (had ex-lap; matted abdominal organs, pus - Enterostomy tube decompression,loop colostomy and large triple lumen sump drainage of pelvis) - s/p bilateral nephrostomy tubes placed 05/14/[address] Freeman. - continue other care per attending / other consultants - consider paracentesis - continue other care per attending / other consultants ... I have asked case specialist to set up a family meeting to discuss goals of care going forwards .... discussed with urology and no repeat surgical intervention planned The high probability of a clinically significant, sudden or life threatening deterioration of the [respiratory,cardiac, urologic and renal] system(s) required my full and direct attention, intervention and personal management. The aggregate critical care time was [40] minutes without overlap. Time includes spent on; [x] Data Review and interpretation [x] Patient assessment and monitoring of vital signs [x] Documentation [x] Medication orders and management Subjective Date of service: 05/30/18 Principal diagnosis: Acute Hypoxemic Resp Failure; Sepsis Syndrome; Acute VTE; Prostate Cancer Interval history: Patient is seen today for: Acute Hypoxemic Resp Failure; Sepsis Syndrome; Acute VTE; Prostate Cancer Seen and examined at bedside; 24hour events reviewed; nursing and respiratory care staff consulted; no adverse overnight events reported to me; resting peacefully; tenuously tolerating SBT; still nods head "No" to pain question; remains on TPN; no emesis or overt aspiration and no gross bleeding noted. Still making some urine; brother visiting Objective Vital Signs - 12hr 05/29/18 05/29/18 05/29/18 23:15 23:30 23:32 Temperature Pulse Rate 108 H 113 H 113 H Pulse Rate [ From Monitor] Respiratory 22 35 H 33 H Rate Blood Pressure 134/91 138/98 136/94 O2 Sat by Pulse 98 100 98 Oximetry 05/29/18 05/29/18 05/29/18 23:34 23:37 23:45 Temperature 99.9 F H Pulse Rate 114 H 117 H Pulse Rate [ From Monitor] Respiratory 29 H Rate Blood Pressure 138/98 138/98 O2 Sat by Pulse 97 97 Oximetry 05/30/18 05/30/18 05/30/18 00:00 00:15 00:30 Temperature Pulse Rate 116 H 112 H 114 H Pulse Rate [ 125 H From Monitor] Respiratory 26 H 27 H 31 H Rate Blood Pressure 138/98 138/98 142/94 O2 Sat by Pulse 97 99 95 Oximetry 05/30/18 05/30/18 05/30/18 00:45 01:00 01:15 Temperature Pulse Rate 119 H 119 H 114 H Pulse Rate [ From Monitor] Respiratory 33 H 34 H 30 H Rate Blood Pressure 135/93 139/98 142/94 O2 Sat by Pulse 98 96 98 Oximetry 05/30/18 05/30/18 05/30/18 01:30 01:45 02:00 Temperature Pulse Rate 116 H 117 H 124 H Pulse Rate [ From Monitor] Respiratory 25 H 24 29 H Rate Blood Pressure 128/86 139/98 138/90 O2 Sat by Pulse 98 99 96 Oximetry 05/30/18 05/30/18 05/30/18 02:15 02:30 02:45 Temperature Pulse Rate 122 H 124 H 118 H Pulse Rate [ From Monitor] Respiratory 30 H 32 H 24 Rate Blood Pressure 138/90 146/100 146/100 O2 Sat by Pulse 98 94 98 Oximetry 05/30/18 05/30/18 05/30/18 02:55 03:00 03:15 Temperature 100.9 F H Pulse Rate 112 H 118 H Pulse Rate [ From Monitor] Respiratory 30 H 24 Rate Blood Pressure 143/97 146/100 O2 Sat by Pulse 96 98 Oximetry 05/30/18 05/30/18 05/30/18 03:30 03:45 04:00 Temperature Pulse Rate 120 H 117 H 114 H Pulse Rate [ 110 H From Monitor] Respiratory 34 H 25 H 28 H Rate Blood Pressure 142/99 142/99 135/90 O2 Sat by Pulse 96 98 97 Oximetry 05/30/18 05/30/18 05/30/18 04:15 04:30 04:45 Temperature Pulse Rate 111 H 109 H Pulse Rate [ From Monitor] Respiratory 22 22 Rate Blood Pressure 135/90 119/83 119/83 O2 Sat by Pulse 98 97 99 Oximetry 05/30/18 05/30/18 05/30/18 04:54 05:00 05:15 Temperature Pulse Rate 109 H 109 H 107 H Pulse Rate [ From Monitor] Respiratory 22 20 Rate Blood Pressure 119/83 117/74 119/83 O2 Sat by Pulse 100 99 Oximetry 05/30/18 05/30/18 05/30/18 05:30 05:45 06:00 Temperature Pulse Rate 109 H 105 H 105 H Pulse Rate [ From Monitor] Respiratory 18 20 22 Rate Blood Pressure 117/79 117/79 110/72 O2 Sat by Pulse 100 100 Oximetry 05/30/18 05/30/18 05/30/18 06:15 06:30 06:45 Temperature Pulse Rate 109 H 105 H 105 H Pulse Rate [ From Monitor] Respiratory 21 22 22 Rate Blood Pressure 110/72 114/74 114/74 O2 Sat by Pulse 100 99 100 Oximetry 05/30/18 05/30/18 05/30/18 06:56 07:00 07:15 Temperature Pulse Rate 103 H 104 H 108 H Pulse Rate [ From Monitor] Respiratory 22 22 Rate Blood Pressure 114/74 111/70 111/70 O2 Sat by Pulse 100 99 99 Oximetry 05/30/18 05/30/18 05/30/18 07:30 07:45 08:00 Temperature 98.1 F Pulse Rate 106 H 105 H 103 H Pulse Rate [ From Monitor] Respiratory 22 22 21 Rate Blood Pressure 118/79 111/70 113/71 O2 Sat by Pulse 100 100 Oximetry 05/30/18 05/30/18 08:34 09:19 Temperature Pulse Rate 103 H 103 H Pulse Rate [ From Monitor] Respiratory 17 Rate Blood Pressure 111/72 113/73 O2 Sat by Pulse 100 Oximetry Constitutional: alert, other (chronically ill looking middle aged AAM, normocephalic and atraumatic) Eyes: non-icteric ENT: oropharynx moist, other (ETT 23 cm BEATRIS) Neck: supple, no lymphadenopathy, no JVD, other (no thyromegaly) Effort: mildly labored Ascultation: Bilateral: diminished breath sounds, rhonchi (scant in bases) Percussion: Bilateral: not dull Cardiovascular: regular rate and rhythm, other (No R/M) Gastrointestinal: hypoactive bowel sounds, soft, tender (mild), other (Distended ; No palpable HSM) Integumentary: other (poor turgor) Extremities: no cyanosis, no edema, pulses normal, no ischemia or petechiae Neurologic: non-focal exam, pupils equal and round, CN II-XII normal, other ( weak) Psychiatric: mood appropriate, affect normal CBC and BMP: 05/30/18 05:15 05/30/18 05:15 ABG, PT/INR, D-dimer: ABG POC ABG pH 7.437 (7.35-7.45) 05/30/18 05:07 POC ABG pCO2 34.5 (35-45) L 05/30/18 05:07 POC ABG pO2 133 (80-105) H 05/30/18 05:07 POC ABG HCO3 23.3 05/30/18 05:07 POC ABG Total CO2 24 05/30/18 05:07 POC ABG O2 Sat 99 05/30/18 05:07 PT/INR, D-dimer PT 18.3 Sec. (12.2-14.9) H 05/23/18 09:03 INR 1.43 (0.87-1.13) H 05/23/18 09:03 Abnormal lab findings: Abnormal Labs 05/13/18 05/13/18 05/13/18 04:27 04:27 19:39 WBC RBC 3.13 L Hgb 9.4 L Hct 26.8 L MCHC 35 H RDW Lymph % (Auto) Grady % (Auto) 9.6 H Lymph # Grady # Seg Neutrophils % Seg Neuts % (Manual) Lymphocytes % (Manual) Seg Neutrophils # Seg Neutrophils # Man Lymphocytes # (Manual) PT INR APTT POC ABG pH POC ABG pCO2 POC ABG pO2 Sodium 132 L Potassium 5.5 H Chloride 94.1 L Carbon Dioxide 19 L BUN 72 H Creatinine 14.4 H Glucose POC Glucose Lactic Acid Calcium Phosphorus Magnesium Iron TIBC AST ALT Alkaline Phosphatase Total Creatine Kinase C-Reactive Protein Total Protein Albumin 2.8 L Folate PTH Intact Urine WBC (Auto) Urine Creatinine 66.0 H Urine Chloride 27.8 L Urine Total Protein 24 H Vancomycin Trough Crossmatch 05/13/18 05/14/18 05/14/18 20:00 05:05 05:05 WBC RBC Hgb Hct MCHC RDW Lymph % (Auto) Grady % (Auto) Lymph # Grady # Seg Neutrophils % Seg Neuts % (Manual) Lymphocytes % (Manual) Seg Neutrophils # Seg Neutrophils # Man Lymphocytes # (Manual) PT INR APTT POC ABG pH POC ABG pCO2 POC ABG pO2 Sodium 132 L 131 L Potassium 5.2 H 5.8 H Chloride 93.0 L 95.6 L Carbon Dioxide 19 L 20 L BUN 74 H 81 H Creatinine 15.0 H 16.6 H Glucose 134 H 127 H POC Glucose Lactic Acid Calcium 8.2 L 7.9 L Phosphorus 6.30 H Magnesium Iron TIBC AST ALT Alkaline Phosphatase Total Creatine Kinase 236 H C-Reactive Protein Total Protein Albumin Folate PTH Intact 65.37 H Urine WBC (Auto) Urine Creatinine Urine Chloride Urine Total Protein Vancomycin Trough Crossmatch 05/14/18 05/14/18 05/14/18 09:28 10:56 13:29 WBC RBC Hgb Hct MCHC RDW Lymph % (Auto) Grady % (Auto) Lymph # Grady # Seg Neutrophils % Seg Neuts % (Manual) Lymphocytes % (Manual) Seg Neutrophils # Seg Neutrophils # Man Lymphocytes # (Manual) PT INR APTT 38.2 H POC ABG pH POC ABG pCO2 POC ABG pO2 Sodium Potassium Chloride Carbon Dioxide BUN Creatinine Glucose POC Glucose 127 H 126 H Lactic Acid Calcium Phosphorus Magnesium Iron TIBC AST ALT Alkaline Phosphatase Total Creatine Kinase C-Reactive Protein Total Protein Albumin Folate PTH Intact Urine WBC (Auto) Urine Creatinine Urine Chloride Urine Total Protein Vancomycin Trough Crossmatch 09/10/3105/15/18 05/16/18 08:06 08:06 07:02 WBC RBC 2.84 L 2.74 L Hgb 8.5 L 8.5 L Hct 24.2 L 23.5 L MCHC 35 H 36 H RDW Lymph % (Auto) Grady % (Auto) 10.4 H 11.0 H Lymph # 1.1 L Grady # 0.9 H Seg Neutrophils % 72.6 H Seg Neuts % (Manual) Lymphocytes % (Manual) Seg Neutrophils # Seg Neutrophils # Man Lymphocytes # (Manual) PT INR APTT POC ABG pH POC ABG pCO2 POC ABG pO2 Sodium Potassium Chloride Carbon Dioxide 19 L BUN 66 H Creatinine 12.0 H Glucose 115 H POC Glucose Lactic Acid Calcium 8.1 L Phosphorus Magnesium Iron TIBC AST ALT Alkaline Phosphatase Total Creatine Kinase C-Reactive Protein Total Protein Albumin Folate PTH Intact Urine WBC (Auto) Urine Creatinine Urine Chloride Urine Total Protein Vancomycin Trough Crossmatch 05/16/18 05/16/18 05/17/18 07:02 07:02 05:08 WBC RBC 2.78 L Hgb 8.2 L Hct 23.9 L MCHC RDW Lymph % (Auto) Grady % (Auto) 13.9 H Lymph # Grady # 0.9 H Seg Neutrophils % Seg Neuts % (Manual) Lymphocytes % (Manual) Seg Neutrophils # Seg Neutrophils # Man Lymphocytes # (Manual) PT INR APTT POC ABG pH POC ABG pCO2 POC ABG pO2 Sodium Potassium Chloride Carbon Dioxide BUN 28 H Creatinine 2.4 H D Glucose POC Glucose Lactic Acid Calcium 8.3 L Phosphorus Magnesium 1.50 L Iron 24 L TIBC 160 L AST ALT Alkaline Phosphatase Total Creatine Kinase C-Reactive Protein Total Protein Albumin Folate 5.39 L PTH Intact Urine WBC (Auto) Urine Creatinine Urine Chloride Urine Total Protein Vancomycin Trough Crossmatch 05/17/18 05/18/18 05/18/18 05:08 05:57 05:57 WBC RBC 2.79 L Hgb 8.3 L Hct 24.0 L MCHC 35 H RDW Lymph % (Auto) Grady % (Auto) 11.8 H Lymph # Grady # 0.9 H Seg Neutrophils % Seg Neuts % (Manual) Lymphocytes % (Manual) Seg Neutrophils # Seg Neutrophils # Man Lymphocytes # (Manual) PT INR APTT POC ABG pH POC ABG pCO2 POC ABG pO2 Sodium Potassium Chloride Carbon Dioxide BUN Creatinine Glucose POC Glucose Lactic Acid Calcium 7.7 L 8.0 L Phosphorus Magnesium 1.60 L Iron TIBC AST ALT Alkaline Phosphatase Total Creatine Kinase C-Reactive Protein Total Protein Albumin Folate PTH Intact Urine WBC (Auto) Urine Creatinine Urine Chloride Urine Total Protein Vancomycin Trough Crossmatch 05/19/18 05/19/18 05/20/18 05:33 05:33 05:38 WBC RBC 2.95 L Hgb 8.8 L Hct 25.8 L MCHC RDW Lymph % (Auto) 10.1 L Grady % (Auto) Lymph # 1.1 L Grady # Seg Neutrophils % 85.2 H Seg Neuts % (Manual) Lymphocytes % (Manual) Seg Neutrophils # 9.0 H Seg Neutrophils # Man Lymphocytes # (Manual) PT INR APTT POC ABG pH POC ABG pCO2 POC ABG pO2 Sodium 135 L Potassium Chloride Carbon Dioxide BUN Creatinine Glucose 132 H POC Glucose Lactic Acid Calcium 7.8 L 8.3 L Phosphorus Magnesium 1.40 L Iron TIBC AST ALT Alkaline Phosphatase Total Creatine Kinase C-Reactive Protein Total Protein Albumin Folate PTH Intact Urine WBC (Auto) Urine Creatinine Urine Chloride Urine Total Protein Vancomycin Trough Crossmatch 05/21/18 05/21/18 05/22/18 04:46 15:30 06:49 WBC 20.0 H RBC 2.70 L Hgb 7.8 L Hct 23.3 L MCHC RDW Lymph % (Auto) Grady % (Auto) Lymph # Grady # Seg Neutrophils % Seg Neuts % (Manual) 85.0 H Lymphocytes % (Manual) 4.0 L Seg Neutrophils # Seg Neutrophils # Man 17.0 H Lymphocytes # (Manual) 0.8 L PT INR APTT POC ABG pH POC ABG pCO2 POC ABG pO2 Sodium 135 L Potassium 3.5 L Chloride Carbon Dioxide 21 L BUN 22 H Creatinine Glucose POC Glucose Lactic Acid Calcium 8.1 L Phosphorus Magnesium Iron TIBC AST ALT Alkaline Phosphatase Total Creatine Kinase C-Reactive Protein Total Protein Albumin Folate PTH Intact Urine WBC (Auto) 28.0 H Urine Creatinine Urine Chloride Urine Total Protein Vancomycin Trough Crossmatch 05/22/18 05/22/18 05/23/18 06:49 11:23 09:03 WBC RBC Hgb Hct MCHC RDW Lymph % (Auto) Grady % (Auto) Lymph # Grady # Seg Neutrophils % Seg Neuts % (Manual) Lymphocytes % (Manual) Seg Neutrophils # Seg Neutrophils # Man Lymphocytes # (Manual) PT INR APTT POC ABG pH POC ABG pCO2 POC ABG pO2 Sodium 134 L Potassium 3.5 L Chloride Carbon Dioxide 21 L BUN 35 H 36 H Creatinine 1.7 H Glucose 107 H POC Glucose Lactic Acid Calcium 7.9 L Phosphorus Magnesium 2.50 H Iron TIBC AST ALT Alkaline Phosphatase Total Creatine Kinase C-Reactive Protein Total Protein Albumin Folate PTH Intact Urine WBC (Auto) Urine Creatinine Urine Chloride Urine Total Protein Vancomycin Trough Crossmatch See Detail 05/23/18 05/23/18 05/23/18 09:03 09:03 17:34 WBC 26.3 H RBC 3.57 L Hgb 10.4 L Hct 31.1 L D MCHC RDW Lymph % (Auto) Grady % (Auto) Lymph # Grady # Seg Neutrophils % Seg Neuts % (Manual) Lymphocytes % (Manual) Seg Neutrophils # Seg Neutrophils # Man Lymphocytes # (Manual) PT 18.3 H INR 1.43 H APTT 40.0 H POC ABG pH POC ABG pCO2 POC ABG pO2 Sodium Potassium Chloride Carbon Dioxide BUN Creatinine Glucose POC Glucose 108 H Lactic Acid Calcium Phosphorus Magnesium Iron TIBC AST ALT Alkaline Phosphatase Total Creatine Kinase C-Reactive Protein Total Protein Albumin Folate PTH Intact Urine WBC (Auto) Urine Creatinine Urine Chloride Urine Total Protein Vancomycin Trough Crossmatch 05/23/18 05/24/18 05/24/18 21:14 04:43 08:04 WBC RBC Hgb Hct MCHC RDW Lymph % (Auto) Grady % (Auto) Lymph # Grady # Seg Neutrophils % Seg Neuts % (Manual) Lymphocytes % (Manual) Seg Neutrophils # Seg Neutrophils # Man Lymphocytes # (Manual) PT INR APTT POC ABG pH POC ABG pCO2 POC ABG pO2 Sodium 146 H Potassium Chloride 108.6 H Carbon Dioxide BUN 33 H Creatinine Glucose 109 H POC Glucose 110 H 106 H Lactic Acid Calcium 8.3 L Phosphorus Magnesium 2.50 H Iron TIBC AST ALT Alkaline Phosphatase Total Creatine Kinase C-Reactive Protein Total Protein Albumin Folate PTH Intact Urine WBC (Auto) Urine Creatinine Urine Chloride Urine Total Protein Vancomycin Trough Crossmatch 05/25/18 05/25/18 05/25/18 05:42 05:49 19:50 WBC RBC Hgb Hct MCHC RDW Lymph % (Auto) Grady % (Auto) Lymph # Grady # Seg Neutrophils % Seg Neuts % (Manual) Lymphocytes % (Manual) Seg Neutrophils # Seg Neutrophils # Man Lymphocytes # (Manual) PT INR APTT POC ABG pH POC ABG pCO2 POC ABG pO2 Sodium 150 H Potassium Chloride 112.5 H Carbon Dioxide BUN 34 H Creatinine Glucose 102 H POC Glucose 107 H Lactic Acid Calcium Phosphorus Magnesium Iron TIBC AST ALT Alkaline Phosphatase Total Creatine Kinase C-Reactive Protein 34.50 H Total Protein Albumin Folate PTH Intact Urine WBC (Auto) Urine Creatinine Urine Chloride Urine Total Protein Vancomycin Trough Crossmatch 05/25/18 05/25/18 05/25/18 19:50 21:05 22:46 WBC RBC Hgb Hct MCHC RDW Lymph % (Auto) Grady % (Auto) Lymph # [place]ady # Seg Neutrophils % Seg Neuts % (Manual) Lymphocytes % (Manual) Seg Neutrophils # Seg Neutrophils # Man Lymphocytes # (Manual) PT INR APTT POC ABG pH 7.483 H POC ABG pCO2 24.0 L POC ABG pO2 72 L Sodium Potassium Chloride Carbon Dioxide BUN Creatinine Glucose POC Glucose Lactic Acid 5.90 H* Calcium Phosphorus Magnesium Iron TIBC AST ALT Alkaline Phosphatase Total Creatine Kinase C-Reactive Protein Total Protein Albumin Folate PTH Intact Urine WBC (Auto) Urine Creatinine Urine Chloride Urine Total Protein Vancomycin Trough 25.1 H Crossmatch 05/25/18 05/26/18 05/26/18 22:46 00:21 00:51 WBC RBC Hgb Hct MCHC RDW Lymph % (Auto) Grady % (Auto) Lymph # [place]ady # Seg Neutrophils % Seg Neuts % (Manual) Lymphocytes % (Manual) Seg Neutrophils # Seg Neutrophils # Man Lymphocytes # (Manual) PT INR APTT POC ABG pH POC ABG pCO2 POC ABG pO2 Sodium Potassium Chloride Carbon Dioxide BUN Creatinine Glucose POC Glucose 133 H Lactic Acid 8.10 H* 6.20 H* Calcium Phosphorus Magnesium Iron TIBC AST ALT Alkaline Phosphatase Total Creatine Kinase C-Reactive Protein Total Protein Albumin Folate PTH Intact Urine WBC (Auto) Urine Creatinine Urine Chloride Urine Total Protein Vancomycin Trough Crossmatch 05/26/18 05/26/18 05/26/18 01:13 02:24 02:24 WBC 18.7 H RBC Hgb 11.6 L Hct MCHC RDW Lymph % (Auto) [place]ady % (Auto) Lymph # Grady # Seg Neutrophils % Seg Neuts % (Manual) Lymphocytes % (Manual) Seg Neutrophils # Seg Neutrophils # Man Lymphocytes # (Manual) PT INR APTT POC ABG pH POC ABG pCO2 POC ABG pO2 Sodium 147 H Potassium 6.2 H* D Chloride 111.9 H Carbon Dioxide 19 L BUN 80 H Creatinine 5.1 H D Glucose 112 H POC Glucose Lactic Acid 5.20 H* Calcium 6.7 L D Phosphorus Magnesium Iron TIBC AST ALT Alkaline Phosphatase Total Creatine Kinase C-Reactive Protein Total Protein Albumin Folate PTH Intact Urine WBC (Auto) Urine Creatinine Urine Chloride Urine Total Protein Vancomycin Trough Crossmatch 05/26/18 05/26/18 05/26/18 04:20 04:20 05:39 WBC RBC Hgb Hct MCHC RDW Lymph % (Auto) Grady % (Auto) Lymph # Grady # Seg Neutrophils % Seg Neuts % (Manual) Lymphocytes % (Manual) Seg Neutrophils # Seg Neutrophils # Man Lymphocytes # (Manual) PT INR APTT POC ABG pH POC ABG pCO2 POC ABG pO2 Sodium 150 H Potassium Chloride 110.0 H Carbon Dioxide 19 L BUN 66 H Creatinine Glucose 166 H POC Glucose 187 H Lactic Acid 5.10 H* Calcium 6.9 L Phosphorus 6.70 H D Magnesium Iron TIBC AST ALT Alkaline Phosphatase Total Creatine Kinase C-Reactive Protein Total Protein Albumin Folate PTH Intact Urine WBC (Auto) Urine Creatinine Urine Chloride Urine Total Protein Vancomycin Trough Crossmatch 05/26/18 05/26/18 05/26/18 06:02 07:29 11:00 WBC RBC Hgb Hct MCHC RDW Lymph % (Auto) Grady % (Auto) Lymph # Grady # Seg Neutrophils % Seg Neuts % (Manual) Lymphocytes % (Manual) Seg Neutrophils # Seg Neutrophils # Man Lymphocytes # (Manual) PT INR APTT POC ABG pH POC ABG pCO2 28.8 L POC ABG pO2 Sodium Potassium Chloride Carbon Dioxide BUN Creatinine Glucose POC Glucose Lactic Acid 4.80 H* 3.80 H* Calcium Phosphorus Magnesium Iron TIBC AST ALT Alkaline Phosphatase Total Creatine Kinase C-Reactive Protein Total Protein Albumin Folate PTH Intact Urine WBC (Auto) Urine Creatinine Urine Chloride Urine Total Protein Vancomycin Trough Crossmatch 05/26/18 05/26/18 05/26/18 11:01 12:28 18:00 WBC RBC Hgb Hct MCHC RDW Lymph % (Auto) [place]ady % (Auto) Lymph # [place]ady # Seg Neutrophils % Seg Neuts % (Manual) Lymphocytes % (Manual) Seg Neutrophils # Seg Neutrophils # Man Lymphocytes # (Manual) PT INR APTT POC ABG pH POC ABG pCO2 POC ABG pO2 Sodium 150 H 151 H Potassium 5.3 H D 6.1 H* Chloride 110.3 H 117.0 H Carbon Dioxide 21 L 20 L BUN 75 H 77 H Creatinine 4.3 H D 4.6 H Glucose 161 H POC Glucose 114 H Lactic Acid Calcium 7.5 L 6.7 L Phosphorus Magnesium Iron TIBC AST 1041 H ALT 406 H Alkaline Phosphatase 281 H Total Creatine Kinase C-Reactive Protein Total Protein 4.4 L Albumin 1.3 L Folate PTH Intact Urine WBC (Auto) Urine Creatinine Urine Chloride Urine Total Protein Vancomycin Trough Crossmatch 05/26/18 05/26/18 05/27/18 18:02 19:17 01:01 WBC 21.7 H RBC 2.70 L Hgb 7.8 L D Hct 24.6 L D MCHC RDW 15.3 H Lymph % (Auto) Grady % (Auto) Lymph # Grady # Seg Neutrophils % Seg Neuts % (Manual) 94.0 H Lymphocytes % (Manual) 3.0 L Seg Neutrophils # Seg Neutrophils # Man 20.4 H Lymphocytes # (Manual) 0.7 L PT INR APTT POC ABG pH 7.159 L 7.205 L POC ABG pCO2 54.5 H 53.0 H POC ABG pO2 252 H Sodium Potassium Chloride Carbon Dioxide BUN Creatinine Glucose POC Glucose Lactic Acid Calcium Phosphorus Magnesium Iron TIBC AST ALT Alkaline Phosphatase Total Creatine Kinase C-Reactive Protein Total Protein Albumin Folate PTH Intact Urine WBC (Auto) Urine Creatinine Urine Chloride Urine Total Protein Vancomycin Trough Crossmatch 05/27/18 05/27/18 05/27/18 05:15 05:15 06:11 WBC 24.9 H RBC 2.86 L Hgb 8.1 L Hct 25.9 L MCHC RDW 15.5 H Lymph % (Auto) [place]ady % (Auto) Lymph # Grady # Seg Neutrophils % Seg Neuts % (Manual) Lymphocytes % (Manual) Seg Neutrophils # Seg Neutrophils # Man Lymphocytes # (Manual) PT INR APTT POC ABG pH 7.265 L POC ABG pCO2 46.2 H POC ABG pO2 111 H Sodium 149 H Potassium 6.9 H* Chloride 113.5 H Carbon Dioxide BUN 89 H Creatinine 5.2 H Glucose 118 H POC Glucose Lactic Acid Calcium 7.0 L Phosphorus 9.70 H D Magnesium Iron TIBC AST 876 H ALT 408 H Alkaline Phosphatase Total Creatine Kinase C-Reactive Protein Total Protein 5.2 L Albumin 1.5 L Folate PTH Intact Urine WBC (Auto) Urine Creatinine Urine Chloride Urine Total Protein Vancomycin Trough Crossmatch 05/27/18 05/27/18 05/27/18 08:48 10:22 10:22 WBC RBC Hgb Hct MCHC RDW Lymph % (Auto) [place]ady % (Auto) Lymph # [place]ady # Seg Neutrophils % Seg Neuts % (Manual) Lymphocytes % (Manual) Seg Neutrophils # Seg Neutrophils # Man Lymphocytes # (Manual) PT INR APTT POC ABG pH POC ABG pCO2 POC ABG pO2 Sodium 146 H Potassium 6.1 H* Chloride 108.2 H Carbon Dioxide 21 L BUN 88 H Creatinine 5.6 H Glucose 163 H POC Glucose 164 H Lactic Acid Calcium 6.7 L Phosphorus Magnesium Iron TIBC AST ALT Alkaline Phosphatase Total Creatine Kinase C-Reactive Protein 40.70 H Total Protein Albumin Folate PTH Intact Urine WBC (Auto) Urine Creatinine Urine Chloride Urine Total Protein Vancomycin Trough Crossmatch 05/27/18 05/27/18 05/27/18 17:39 23:27 Unknown WBC RBC Hgb Hct MCHC RDW Lymph % (Auto) [place]ady % (Auto) Lymph # [place]ady # Seg Neutrophils % Seg Neuts % (Manual) Lymphocytes % (Manual) Seg Neutrophils # Seg Neutrophils # Man Lymphocytes # (Manual) PT INR APTT POC ABG pH POC ABG pCO2 POC ABG pO2 Sodium Potassium Chloride Carbon Dioxide BUN Creatinine Glucose POC Glucose 59 L 132 H Lactic Acid Calcium Phosphorus Magnesium Iron TIBC AST ALT Alkaline Phosphatase Total Creatine Kinase C-Reactive Protein Total Protein Albumin Folate PTH Intact Urine WBC (Auto) 120.0 H Urine Creatinine Urine Chloride Urine Total Protein Vancomycin Trough Crossmatch 05/28/18 05/28/18 05/28/18 04:32 05:00 05:00 WBC 26.5 H RBC 2.69 L Hgb 7.7 L Hct 23.6 L MCHC RDW Lymph % (Auto) [place]ady % (Auto) Lymph # [place]ady # Seg Neutrophils % Seg Neuts % (Manual) 96.0 H Lymphocytes % (Manual) 0 L Seg Neutrophils # Seg Neutrophils # Man 25.4 H Lymphocytes # (Manual) 0.0 L PT INR APTT POC ABG pH POC ABG pCO2 POC ABG pO2 134 H Sodium Potassium Chloride Carbon Dioxide BUN 69 H Creatinine 4.4 H Glucose 118 H POC Glucose Lactic Acid Calcium 8.0 L D Phosphorus 6.80 H D Magnesium Iron TIBC AST ALT Alkaline Phosphatase Total Creatine Kinase C-Reactive Protein Total Protein Albumin Folate PTH Intact Urine WBC (Auto) Urine Creatinine Urine Chloride Urine Total Protein Vancomycin Trough Crossmatch 05/28/18 05/28/18 05/28/18 05:27 13:04 17:56 WBC RBC Hgb Hct MCHC RDW Lymph % (Auto) [place]ady % (Auto) Lymph # [place]ady # Seg Neutrophils % Seg Neuts % (Manual) Lymphocytes % (Manual) Seg Neutrophils # Seg Neutrophils # Man Lymphocytes # (Manual) PT INR APTT POC ABG pH POC ABG pCO2 POC ABG pO2 Sodium Potassium Chloride Carbon Dioxide BUN Creatinine Glucose POC Glucose 128 H 155 H 110 H Lactic Acid Calcium Phosphorus Magnesium Iron TIBC AST ALT Alkaline Phosphatase Total Creatine Kinase C-Reactive Protein Total Protein Albumin Folate PTH Intact Urine WBC (Auto) Urine Creatinine Urine Chloride Urine Total Protein Vancomycin Trough Crossmatch 05/29/18 05/29/18 05/29/18 03:35 04:00 11:51 WBC RBC Hgb Hct MCHC RDW Lymph % (Auto) [place]ady % (Auto) Lymph # Grady # Seg Neutrophils % Seg Neuts % (Manual) Lymphocytes % (Manual) Seg Neutrophils # Seg Neutrophils # Man Lymphocytes # (Manual) PT INR APTT POC ABG pH 7.471 H POC ABG pCO2 POC ABG pO2 78 L Sodium Potassium Chloride Carbon Dioxide BUN 50 H Creatinine 3.9 H Glucose POC Glucose 131 H Lactic Acid Calcium 7.7 L Phosphorus Magnesium 1.50 L Iron TIBC AST 218 H ALT 204 H Alkaline Phosphatase Total Creatine Kinase C-Reactive Protein Total Protein 5.4 L Albumin 1.6 L Folate PTH Intact Urine WBC (Auto) Urine Creatinine Urine Chloride Urine Total Protein Vancomycin Trough Crossmatch 05/29/18 05/30/18 05/30/18 23:56 04:54 05:07 WBC RBC Hgb Hct MCHC RDW Lymph % (Auto) [place] % (Auto) Lymph # [place] # Seg Neutrophils % Seg Neuts % (Manual) Lymphocytes % (Manual) Seg Neutrophils # Seg Neutrophils # Man Lymphocytes # (Manual) PT INR APTT POC ABG pH POC ABG pCO2 34.5 L POC ABG pO2 133 H Sodium Potassium Chloride Carbon Dioxide BUN Creatinine Glucose POC Glucose 119 H 115 H Lactic Acid Calcium Phosphorus Magnesium Iron TIBC AST ALT Alkaline Phosphatase Total Creatine Kinase C-Reactive Protein Total Protein Albumin Folate PTH Intact Urine WBC (Auto) Urine Creatinine Urine Chloride Urine Total Protein Vancomycin Trough Crossmatch 05/30/18 05/30/18 05:15 05:15 WBC 16.2 H RBC 2.53 L Hgb 7.4 L Hct 21.9 L MCHC RDW Lymph % (Auto) [place] % (Auto) Lymph # [place] # Seg Neutrophils % Seg Neuts % (Manual) Lymphocytes % (Manual) Seg Neutrophils # Seg Neutrophils # Man Lymphocytes # (Manual) PT INR APTT POC ABG pH POC ABG pCO2 POC ABG pO2 Sodium 135 L Potassium Chloride 97.5 L Carbon Dioxide BUN 69 H Creatinine 5.4 H Glucose 105 H POC Glucose Lactic Acid Calcium 7.5 L Phosphorus 5.30 H D Magnesium Iron TIBC AST ALT Alkaline Phosphatase Total Creatine Kinase C-Reactive Protein Total Protein Albumin Folate PTH Intact Urine WBC (Auto) Urine Creatinine Urine Chloride Urine Total Protein Vancomycin Trough Crossmatch Allied health notes reviewed: nursing
--- NOTE | 2018-05-30 12:10 | Progress Note ---
Assessment and Plan POD # 4 Pt status quo. being weaned off vent and appears to be radha well Abd non tender. osotomy pink. Davol drain 100 cc/24 hrs surgically stable Selected Entries 05/30/18 05/30/18 08:00 11:45 Temperature 98.1 F Pulse Rate 102 H Respiratory 18 Rate Blood Pressure 118/77 Laboratory Tests 05/30/18 05/30/18 05/30/18 05:07 05:15 05:15 WBC 16.2 H Hgb 7.4 L Hct 21.9 L POC ABG pH 7.437 POC ABG pCO2 34.5 L POC ABG pO2 133 H POC ABG HCO3 23.3 FiO2 40 Sodium 135 L Potassium 4.1 Chloride 97.5 L Carbon Dioxide 22 BUN 69 H Creatinine 5.4 H Objective Vital Signs - 12hr 05/30/18 05/30/18 05/30/18 00:15 00:30 00:45 Temperature Pulse Rate 112 H 114 H 119 H Pulse Rate [ From Monitor] Respiratory 27 H 31 H 33 H Rate Blood Pressure 138/98 142/94 135/93 O2 Sat by Pulse 99 95 98 Oximetry 05/30/18 05/30/18 05/30/18 01:00 01:15 01:30 Temperature Pulse Rate 119 H 114 H 116 H Pulse Rate [ From Monitor] Respiratory 34 H 30 H 25 H Rate Blood Pressure 139/98 142/94 128/86 O2 Sat by Pulse 96 98 98 Oximetry 05/30/18 05/30/18 05/30/18 01:45 02:00 02:15 Temperature Pulse Rate 117 H 124 H 122 H Pulse Rate [ From Monitor] Respiratory 24 29 H 30 H Rate Blood Pressure 139/98 138/90 138/90 O2 Sat by Pulse 99 96 98 Oximetry 05/30/18 05/30/18 05/30/18 02:30 02:45 02:55 Temperature 100.9 F H Pulse Rate 124 H 118 H Pulse Rate [ From Monitor] Respiratory 32 H 24 Rate Blood Pressure 146/100 146/100 O2 Sat by Pulse 94 98 Oximetry 05/30/18 05/30/18 05/30/18 03:00 03:15 03:30 Temperature Pulse Rate 112 H 118 H 120 H Pulse Rate [ From Monitor] Respiratory 30 H 24 34 H Rate Blood Pressure 143/97 146/100 142/99 O2 Sat by Pulse 96 98 96 Oximetry 05/30/18 05/30/18 05/30/18 03:45 04:00 04:15 Temperature Pulse Rate 117 H 114 H Pulse Rate [ 110 H From Monitor] Respiratory 25 H 28 H Rate Blood Pressure 142/99 135/90 135/90 O2 Sat by Pulse 98 97 98 Oximetry 05/30/18 05/30/18 05/30/18 04:30 04:45 04:54 Temperature Pulse Rate 111 H 109 H 109 H Pulse Rate [ From Monitor] Respiratory 22 22 Rate Blood Pressure 119/83 119/83 119/83 O2 Sat by Pulse 97 99 100 Oximetry 05/30/18 05/30/18 05/30/18 05:00 05:15 05:30 Temperature Pulse Rate 109 H 107 H 109 H Pulse Rate [ From Monitor] Respiratory 22 20 18 Rate Blood Pressure 117/74 119/83 117/79 O2 Sat by Pulse 99 100 Oximetry 05/30/18 05/30/18 05/30/18 05:45 06:00 06:15 Temperature Pulse Rate 105 H 105 H 109 H Pulse Rate [ From Monitor] Respiratory 20 22 21 Rate Blood Pressure 117/79 110/72 110/72 O2 Sat by Pulse 100 100 Oximetry 05/30/18 05/30/18 05/30/18 06:30 06:45 06:56 Temperature Pulse Rate 105 H 105 H 103 H Pulse Rate [ From Monitor] Respiratory 22 22 Rate Blood Pressure 114/74 114/74 114/74 O2 Sat by Pulse 99 100 100 Oximetry 05/30/18 05/30/18 05/30/18 07:00 07:15 07:30 Temperature Pulse Rate 104 H 108 H 106 H Pulse Rate [ From Monitor] Respiratory 22 22 22 Rate Blood Pressure 111/70 111/70 118/79 O2 Sat by Pulse 99 99 100 Oximetry 05/30/18 05/30/18 05/30/18 07:45 08:00 08:15 Temperature 98.1 F Pulse Rate 105 H 103 H 104 H Pulse Rate [ From Monitor] Respiratory 22 21 22 Rate Blood Pressure 111/70 113/71 113/71 O2 Sat by Pulse 100 99 Oximetry 05/30/18 05/30/18 05/30/18 08:30 08:34 08:45 Temperature Pulse Rate 104 H 103 H 106 H Pulse Rate [ From Monitor] Respiratory 23 17 17 Rate Blood Pressure 111/72 111/72 111/72 O2 Sat by Pulse 97 100 100 Oximetry 05/30/18 05/30/18 05/30/18 09:00 09:15 09:19 Temperature Pulse Rate 105 H 105 H 103 H Pulse Rate [ From Monitor] Respiratory 19 17 Rate Blood Pressure 113/73 113/73 113/73 O2 Sat by Pulse 96 100 Oximetry 05/30/18 05/30/18 05/30/18 09:30 09:45 10:00 Temperature Pulse Rate 105 H 104 H 104 H Pulse Rate [ From Monitor] Respiratory 16 18 18 Rate Blood Pressure 117/76 117/76 116/75 O2 Sat by Pulse 98 100 Oximetry 05/30/18 05/30/18 05/30/18 10:15 10:30 10:45 Temperature Pulse Rate 104 H 103 H 103 H Pulse Rate [ From Monitor] Respiratory 17 17 19 Rate Blood Pressure 116/75 117/73 117/73 O2 Sat by Pulse 100 97 100 Oximetry 05/30/18 05/30/18 05/30/18 11:00 11:15 11:30 Temperature Pulse Rate 104 H 105 H 102 H Pulse Rate [ From Monitor] Respiratory 17 19 20 Rate Blood Pressure 117/73 118/75 118/77 O2 Sat by Pulse 100 99 99 Oximetry 05/30/18 11:45 Temperature Pulse Rate 102 H Pulse Rate [ From Monitor] Respiratory 18 Rate Blood Pressure 118/77 O2 Sat by Pulse 100 Oximetry - Labs 05/30/18 05:15 05/30/18 05:15 Diabetes panel 05/30/18 Range/Units 05:15 Sodium 135 L (137-145) mmol/L Potassium 4.1 (3.6-5.0) mmol/L Chloride 97.5 L (98-107) mmol/L Carbon Dioxide 22 (22-30) mmol/L BUN 69 H (9-20) mg/dL Creatinine 5.4 H (0.8-1.5) mg/dL Glucose 105 H (75-100) mg/dL Calcium 7.5 L (8.4-10.2) mg/dL Calcium panel 05/30/18 Range/Units 05:15 Calcium 7.5 L (8.4-10.2) mg/dL Phosphorus 5.30 H D (2.5-4.5) mg/dL Pituitary panel 05/30/18 Range/Units 05:15 Sodium 135 L (137-145) mmol/L Potassium 4.1 (3.6-5.0) mmol/L Chloride 97.5 L (98-107) mmol/L Carbon Dioxide 22 (22-30) mmol/L BUN 69 H (9-20) mg/dL Creatinine 5.4 H (0.8-1.5) mg/dL Glucose 105 H (75-100) mg/dL Calcium 7.5 L (8.4-10.2) mg/dL Adrenal panel 05/30/18 Range/Units 05:15 Sodium 135 L (137-145) mmol/L Potassium 4.1 (3.6-5.0) mmol/L Chloride 97.5 L (98-107) mmol/L Carbon Dioxide 22 (22-30) mmol/L BUN 69 H (9-20) mg/dL Creatinine 5.4 H (0.8-1.5) mg/dL Glucose 105 H (75-100) mg/dL Calcium 7.5 L (8.4-10.2) mg/dL
--- NOTE | 2018-05-30 12:36 | Progress Note ---
Assessment and Plan Assessment: 1) Sepsis: still fever, leukocytosis is better. Etiology unclear - most likely necrotic malignancy ? abscess +/- UTI +/- LLL pneumonia -Blood cx 05/15 neg, 05/20 neg, 05/26 ngtd -CRP=40 2) Complicated UTI: repeat UA 05/21 28 wbc, trace LE. 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 Enlarged pelvic lymph nodes, bilateral hydronephrosis. -S/p 05/14/18 left and right nephrostomy tube placements and mass biopsy -S/p 05/18/2018 cystoscopy with right great toe pyelogram found to have a bladder mass and prostate mass -S/p 05/26/18 diverting colostomy 4) LLL pneumonia, sputum cx + Yeast 5) MARYLOU 6) Weight loss Plan: -follow-up repeat blood cultures, urine culture, sputum culture, procalcitonin -continue cefepime, flagyl and zyvox D4 -remove avila since he has amy percut nephrostomy tubes -remove femoral access -monitor fever Discussed w infection control Thank you for your consultation, will follow up with you. Sugey Garcia MD Infectious Diseases Specialist [facility] [phone] Subjective Date of service: 05/30/18 Principal diagnosis: Acute Hypoxemic Resp Failure; Sepsis Syndrome; Acute VTE; Prostate Cancer Interval history: More alert on the vent on CPAP, off pressors. Still fever 100.9 Microbiology: Blood cultures: 05/15 neg 05/20 neg 05/26 ngtd Urine cultures: 05/21 neg 05/27 neg Sputum: 05/27 yeast Current Antimicrobials: 05/27 cefepime, flagyl and zyvox Previous Antimicrobials: Zosyn 05/19 Levaquin 05/26 Objective - Exam Narrative Exam: General appearance: Alert in NAD, nonconversant Eyes: anicteric sclerae, moist conjunctivae; no lid-lag; PERRLA HENT: Atraumatic; oropharynx +EET +NGT. Normal external ears. +temporal wasting Neck: Trachea midline; supple, no thyromegaly or lymphadenopathy Lungs: amy rhonchi CV: RRR, no murmurs Abdomen: Soft, +diverting colostomy +multiple drains and amy PC nephros Extremities: No peripheral edema or extremity lymphadenopathy Skin: Normal temperature, turgor and texture; no rash, ulcers or subcutaneous nodules Psych: sedated. Neuro: sedated Lines: right fem line, right IJ - Constitutional Vitals: Vital Signs Temp Pulse Resp BP Pulse Ox 97.8 F 102 H 20 118/77 99 05/30/18 12:00 05/30/18 11:45 05/30/18 11:45 05/30/18 11:45 05/30/18 11:45 Temperature -Last 24 Hours Temperature 97.8 F Temperature 98.1 F Temperature 100.9 F Temperature 99.9 F Temperature 100.6 F Temperature 100.2 F - Labs CBC & Chem 7: 05/30/18 05:15 05/30/18 05:15 Labs: Abnormal lab results 05/29/18 05/30/18 05/30/18 Range/Units 23:56 04:54 05:07 WBC (4.5-11.0) K/mm3 RBC (3.65-5.03) M/mm3 Hgb (11.8-15.2) gm/dl Hct (35.5-45.6) % POC ABG pCO2 34.5 L (35-45) POC ABG pO2 133 H (80-105) Sodium (137-145) mmol/L Chloride (98-107) mmol/L BUN (9-20) mg/dL Creatinine (0.8-1.5) mg/dL Glucose (75-100) mg/dL POC Glucose 119 H 115 H (70-105) Calcium (8.4-10.2) mg/dL Phosphorus (2.5-4.5) mg/dL 05/30/18 05/30/18 Range/Units 05:15 05:15 WBC 16.2 H (4.5-11.0) K/mm3 RBC 2.53 L (3.65-5.03) M/mm3 Hgb 7.4 L (11.8-15.2) gm/dl Hct 21.9 L (35.5-45.6) % POC ABG pCO2 (35-45) POC ABG pO2 (80-105) Sodium 135 L (137-145) mmol/L Chloride 97.5 L (98-107) mmol/L BUN 69 H (9-20) mg/dL Creatinine 5.4 H (0.8-1.5) mg/dL Glucose 105 H (75-100) mg/dL POC Glucose (70-105) Calcium 7.5 L (8.4-10.2) mg/dL Phosphorus 5.30 H D (2.5-4.5) mg/dL
--- NOTE | 2018-05-30 16:07 | Progress Note ---
Assessment and Plan Assessment and plan: The high probability of a clinically significant, sudden or life threatening deterioration of the [] system(s) required my full and direct attention, intervention and personal management. The aggregate critical care time was [] minutes. This time is in addition to time spent performing reported procedures but includes the following: [x] Data Review and interpretation [x] Patient assessment and monitoring of vital signs [x] Documentation [x] Medication orders and management Total Time Spent with Patient (Minutes): 43 min - Patient Problems (1) Sepsis Current Visit: Yes Status: Acute Plan to address problem: Patient septic from pelvic abscess. Continue IV antibiotics with cefepime and Flagyl and Zyvox. Patient has low-grade fever however leukocytosis is improved clinically he has improved with decreased pain. He also made be a result of malignancy versus left lower lobe pneumonia. (2) Acute renal failure Current Visit: Yes Status: Acute Qualifiers: Acute renal failure type: unspecified Qualified Code(s): N17.9 - Acute kidney failure, unspecified Plan to address problem: Patient creatinine 5.4. Had bilateral hydronephrosis. Nephrostomy tubes in place. (3) Hypertensive urgency, malignant Current Visit: Yes Status: Acute Plan to address problem: Hypertensive urgency now resolved with current antihypertensives. Blood pressure 127/76 on metoprolol and hydralazine. (4) Intestinal obstruction Current Visit: Yes Status: Acute Plan to address problem: Patient status post surgical correction for intestinal obstruction. surgery following. (5) Pelvic mass in male Current Visit: Yes Status: Acute Plan to address problem: Pelvic mass possible squamous cell carcinoma. Oncology following. (6) UTI (urinary tract infection) Current Visit: Yes Status: Acute Plan to address problem: Patient with complicated UTI continue present management. History Interval history: Patient at present alert however intubated. Able to communicate. Denies pain. Family at bedside all questions and concerns answered to patient's satisfaction. Hospitalist Physical - Constitutional Vitals: Temp Pulse Resp BP Pulse Ox 97.8 F 110 H 21 127/76 99 05/30/18 12:00 05/30/18 15:35 05/30/18 15:12 05/30/18 15:35 05/30/18 15:12 General appearance: Present: mild distress, cachectic - EENT Eyes: Present: PERRL, EOM intact ENT: hearing intact, clear oral mucosa, other (patient has NG tube with exudate. Also intubated as well.) - Neck Neck: Present: supple, normal ROM - Respiratory Respiratory: bilateral: diminished, rhonchi (few rhonchi at bases.) - Cardiovascular Rhythm: regular Heart Sounds: Present: S1 & S2 - Extremities Extremities: no ischemia, pulses intact, pulses symmetrical, No edema, normal temperature, normal color - Abdominal General gastrointestinal: soft, tender, hypoactive bowel sounds, other (patient tenderness status post surgical procedure.), no hepatomegaly, no splenomegaly - Psychiatric Psychiatric: appropriate mood/affect, intact judgment & insight, cooperative - Neurologic Neurologic: CNII-XII intact, moves all extremities Results - Labs CBC & Chem 7: 05/30/18 05:15 05/30/18 05:15 Labs: Laboratory Last Values WBC 16.2 K/mm3 (4.5-11.0) H 05/30/18 05:15 RBC 2.53 M/mm3 (3.65-5.03) L 05/30/18 05:15 Hgb 7.4 gm/dl (11.8-15.2) L 05/30/18 05:15 Hct 21.9 % (35.5-45.6) L 05/30/18 05:15 MCV 87 fl (84-94) 05/30/18 05:15 MCH 29 pg (28-32) 05/30/18 05:15 MCHC 34 % (32-34) 05/30/18 05:15 RDW 14.6 % (13.2-15.2) 05/30/18 05:15 Plt Count 334 K/mm3 (140-440) 05/30/18 05:15 Lymph % (Auto) Consumer Education Specialist 05/28/18 05:00 [place] % (Auto) Consumer Education Specialist 05/28/18 05:00 Eos % (Auto) Consumer Education Specialist 05/28/18 05:00 Baso % (Auto) Consumer Education Specialist 05/28/18 05:00 Lymph # Consumer Education Specialist 05/28/18 05:00 [place] # Consumer Education Specialist 05/28/18 05:00 Eos # Consumer Education Specialist 05/28/18 05:00 Baso # Consumer Education Specialist 05/28/18 05:00 Add Manual Diff Complete 05/28/18 05:00 Total Counted 100 05/28/18 05:00 Seg Neutrophils % Consumer Education Specialist 05/28/18 05:00 Seg Neuts % (Manual) 96.0 % (40.0-70.0) H 05/28/18 05:00 Band Neutrophils % 1.0 % 05/28/18 05:00 Lymphocytes % (Manual) 0 % (13.4-35.0) L 05/28/18 05:00 Reactive Lymphs % (Man) 2.0 % 05/28/18 05:00 Monocytes % (Manual) 1.0 % (0.0-7.3) 05/28/18 05:00 Eosinophils % (Manual) 0 % (0.0-4.3) 05/28/18 05:00 Basophils % (Manual) 0 % (0.0-1.8) 05/28/18 05:00 Metamyelocytes % 0 % 05/28/18 05:00 Myelocytes % 0 % 05/28/18 05:00 Promyelocytes % 0 % 05/28/18 05:00 Blast Cells % 0 % 05/28/18 05:00 Nucleated RBC % Not Reportable 05/28/18 05:00 Seg Neutrophils # Consumer Education Specialist 05/28/18 05:00 Seg Neutrophils # Man 25.4 K/mm3 (1.8-7.7) H 05/28/18 05:00 Band Neutrophils # 0.3 K/mm3 05/28/18 05:00 Lymphocytes # (Manual) 0.0 K/mm3 (1.2-5.4) L 05/28/18 05:00 Abs React Lymphs (Man) 0.5 K/mm3 05/28/18 05:00 Monocytes # (Manual) 0.3 K/mm3 (0.0-0.8) 05/28/18 05:00 Eosinophils # (Manual) 0.0 K/mm3 (0.0-0.4) 05/28/18 05:00 Basophils # (Manual) 0.0 K/mm3 (0.0-0.1) 05/28/18 05:00 Metamyelocytes # 0.0 K/mm3 05/28/18 05:00 Myelocytes # 0.0 K/mm3 05/28/18 05:00 Promyelocytes # 0.0 K/mm3 05/28/18 05:00 Blast Cells # 0.0 K/mm3 05/28/18 05:00 WBC Morphology Not Reportable 05/28/18 05:00 Hypersegmented Neuts Not Reportable 05/28/18 05:00 Hyposegmented Neuts Not Reportable 05/28/18 05:00 Hypogranular Neuts Not Reportable 05/28/18 05:00 Smudge Cells Not Reportable 05/28/18 05:00 Toxic Granulation Not Reportable 05/28/18 05:00 Toxic Vacuolation Not Reportable 05/28/18 05:00 Dohle Bodies Not Reportable 05/28/18 05:00 Pelger-Huet Anomaly Not Reportable 05/28/18 05:00 Mahesh Rods Not Reportable 05/28/18 05:00 Platelet Estimate Consistent w auto 05/28/18 05:00 Clumped Platelets Not Reportable 05/28/18 05:00 Plt Clumps, EDTA Not Reportable 05/28/18 05:00 Large Platelets Not Reportable 05/28/18 05:00 Giant Platelets Not Reportable 05/28/18 05:00 Platelet Satelliting Not Reportable 05/28/18 05:00 Plt Morphology Comment Not Reportable 05/28/18 05:00 RBC Morphology Not Reportable 05/28/18 05:00 Dimorphic RBCs Not Reportable 05/28/18 05:00 Polychromasia Not Reportable 05/28/18 05:00 Hypochromasia 1+ 05/28/18 05:00 Poikilocytosis Not Reportable 05/28/18 05:00 Anisocytosis Not Reportable 05/28/18 05:00 Microcytosis Not Reportable 05/28/18 05:00 Macrocytosis Not Reportable 05/28/18 05:00 Spherocytes Not Reportable 05/28/18 05:00 Pappenheimer Bodies Not Reportable 05/28/18 05:00 Sickle Cells Not Reportable 05/28/18 05:00 Target Cells Not Reportable 05/28/18 05:00 Tear Drop Cells Not Reportable 05/28/18 05:00 Ovalocytes Not Reportable 05/28/18 05:00 Helmet Cells Not Reportable 05/28/18 05:00 Hernandez-Burnett Bodies Not Reportable 05/28/18 05:00 [place] Rings Not Reportable 05/28/18 05:00 Nory Cells Not Reportable 05/28/18 05:00 Bite Cells Not Reportable 05/28/18 05:00 Crenated Cell Not Reportable 05/28/18 05:00 Elliptocytes Not Reportable 05/28/18 05:00 Acanthocytes (Spur) Not Reportable 05/28/18 05:00 Rouleaux Not Reportable 05/28/18 05:00 Hemoglobin C Crystals Not Reportable 05/28/18 05:00 Schistocytes Not Reportable 05/28/18 05:00 Malaria parasites Not Reportable 05/28/18 05:00 Mk Bodies Not Reportable 05/28/18 05:00 Hem Pathologist Commnt No 05/28/18 05:00 PT 18.3 Sec. (12.2-14.9) H 05/23/18 09:03 INR 1.43 (0.87-1.13) H 05/23/18 09:03 APTT 40.0 Sec. (24.2-36.6) H 05/23/18 09:03 POC ABG pH 7.388 (7.35-7.45) 05/30/18 12:10 POC ABG pCO2 36.0 (35-45) 05/30/18 12:10 POC ABG pO2 82 (80-105) 05/30/18 12:10 POC ABG HCO3 21.7 05/30/18 12:10 POC ABG Total CO2 23 05/30/18 12:10 POC ABG O2 Sat 96 05/30/18 12:10 POC ABG Base Excess -3 05/30/18 12:10 FiO2 40 % 05/30/18 12:10 Sodium 135 mmol/L (137-145) L 05/30/18 05:15 Potassium 4.1 mmol/L (3.6-5.0) 05/30/18 05:15 Chloride 97.5 mmol/L (98-107) L 05/30/18 05:15 Carbon Dioxide 22 mmol/L (22-30) 05/30/18 05:15 Anion Gap 20 mmol/L 05/30/18 05:15 BUN 69 mg/dL (9-20) H 05/30/18 05:15 Creatinine 5.4 mg/dL (0.8-1.5) H 05/30/18 05:15 Estimated GFR 14 ml/min 05/30/18 05:15 BUN/Creatinine Ratio 13 % 05/30/18 05:15 Glucose 105 mg/dL (75-100) H 05/30/18 05:15 POC Glucose 115 (70-105) H 05/30/18 04:54 Hemoglobin A1c 5.7 % (4-6) 05/14/18 05:05 Lactic Acid 3.80 mmol/L (0.7-2.0) H* 05/26/18 11:00 Calcium 7.5 mg/dL (8.4-10.2) L 05/30/18 05:15 Phosphorus 5.30 mg/dL (2.5-4.5) H D 05/30/18 05:15 Magnesium 2.00 mg/dL (1.7-2.3) 05/30/18 05:15 Iron 24 ug/dL (49-181) L 05/16/18 07:02 TIBC 160 mcg/dL (250-450) L 05/16/18 07:02 Ferritin 325.8 ng/mL (13.0-400.0) 05/16/18 07:02 Total Bilirubin 1.00 mg/dL (0.1-1.2) 05/29/18 04:00 AST 218 units/L (5-40) H 05/29/18 04:00 ALT 204 units/L (7-56) H 05/29/18 04:00 Alkaline Phosphatase 91 units/L (35-129) 05/29/18 04:00 Total Creatine Kinase 156 units/L (55-170) 05/25/18 22:46 CK-MB (CK-2) 2.3 ng/mL (0.0-4.0) 05/25/18 22:46 CK-MB (CK-2) Rel Index 1.4 (0-4) 05/25/18 22:46 C-Reactive Protein 40.70 mg/dL (0.00-1.30) H 05/27/18 10:22 Total Protein 5.4 g/dL (6.3-8.2) L 05/29/18 04:00 Albumin 1.6 g/dL (3.9-5) L 05/29/18 04:00 Albumin/Globulin Ratio 0.4 % 05/29/18 04:00 Prostate Specific Ag 0.96 ng/mL (0.00-4.00) 05/14/18 13:29 Vitamin B12 359.2 pg/mL (211-911) 05/16/18 07:02 Folate 5.39 ng/mL (7.3-26.0) L 05/16/18 07:02 TSH 3.180 mlU/mL (0.270-4.200) 05/14/18 05:05 PTH Intact 65.37 pg/mL (15-65) H 05/14/18 05:05 Urine Color [place] (Yellow) 05/27/18 Unknown Urine Turbidity Cloudy (Clear) 05/27/18 Unknown Urine pH 5.0 (5.0-7.0) 05/27/18 Unknown Ur Specific [place] 1.026 (1.003-1.030) 05/27/18 Unknown Urine Protein 100 mg/dl mg/dL (Negative) 05/27/18 Unknown Urine Glucose (UA) 50 mg/dL (Negative) 05/27/18 Unknown Urine Ketones Neg mg/dL (Negative) 05/27/18 Unknown Urine Blood Lg (Negative) 05/27/18 Unknown Urine Nitrite Neg (Negative) 05/27/18 Unknown Urine Bilirubin Neg (Negative) 05/27/18 Unknown Urine Urobilinogen < 2.0 mg/dL (<2.0) 05/27/18 Unknown Ur Leukocyte Esterase Mod (Negative) 05/27/18 Unknown Urine WBC (Auto) 120.0 /HPF (0.0-6.0) H 05/27/18 Unknown Urine RBC (Auto) 35.0 /HPF (0.0-6.0) 05/27/18 Unknown U Epithel Cells (Auto) 3.0 /HPF (0-13.0) 05/27/18 Unknown Urine Bacteria (Auto) 1+ /HPF (Negative) 05/27/18 Unknown Urine WBC Clumps Few /HPF 05/13/18 19:39 Urine Mucus Few /HPF 05/27/18 Unknown Urine Yeast (Budding) 2+ /HPF 05/21/18 15:30 Urine Creatinine 66.0 mg/dL (0.1-20.0) H 05/13/18 19:39 Urine Sodium 60 mmol/L 05/13/18 19:39 Urine Potassium 8.69 mmol/L 05/13/18 19:39 Urine Chloride 27.8 mmolL (110-250) L 05/13/18 19:39 Urine Total Protein 24 mg/dL (5-11.8) H 05/13/18 19:39 Vancomycin Trough 25.1 ug/mL (5.0-20.0) H 05/25/18 22:46 Random Vancomycin 34.3 ug/mL (0-40.0) 05/26/18 11:01 Urine Opiates Screen Presumptive negative 05/13/18 19:39 Urine Methadone Screen Presumptive negative 05/13/18 19:39 Ur Barbiturates Screen Presumptive negative 05/13/18 19:39 Ur Phencyclidine Scrn Presumptive negative 05/13/18 19:39 Ur Amphetamines Screen Presumptive negative 05/13/18 19:39 U Benzodiazepines Scrn Presumptive negative 05/13/18 19:39 Urine Cocaine Screen Presumptive negative 05/13/18 19:39 U Marijuana (THC) Screen Presumptive negative 05/13/18 19:39 Drugs of Abuse Note Disclamer 05/13/18 19:39 ZEUS Screen Negative (Negative) 05/14/18 05:05 Proteinase 3 (PR3) Ab <1.0 AI (<1.0) 05/14/18 05:05 Myeloperoxidase Ab <1.0 AI (<1.0) 05/14/18 05:05 Complement C3 147 mg/dL (82-185) 05/14/18 05:05 Complement C4 45 mg/dL (15-53) 05/14/18 05:05 Hep Bs Antigen Non-reactive (Negative) 05/27/18 13:41 Hep B Core IgM Ab Non-reactive (NonReactive) 05/27/18 13:41 Hepatitis C Antibody Non-reactive (NonReactive) 05/27/18 13:41 Blood Type O POSITIVE 05/22/18 11:23 Antibody Screen Negative 05/22/18 11:23 Crossmatch See Detail 05/22/18 11:23 - Imaging and Cardiology Chest x-ray: report reviewed, image reviewed CT scan - abdomen: report reviewed
[2018-05-30] MEDS ORDERED: TPN ADULT 2,016 ML IV SCH (20:00)
[2018-05-31] MEDS: MORPHINE IV PRN ×3 (04:13→23:16)
[2018-05-31] MEDS: LOPRESSOR IV SCH ×4 (05:45→20:27)
[2018-05-31] MEDS: FLAGYL 500 MG/100 ML 500 MG/100 ML BAG IV SCH ×3 (05:46→22:29)
[2018-05-31] MEDS: APRESOLINE PO SCH ×4 (05:51→23:00)
[2018-05-31 05:56] LABS: Hematocrit 24.8 % (35.5-45.6); Hemoglobin 8.2 gm/dl (11.8-15.2); Mean Corpuscular HGB Conc 33 % (32-34); Mean Corpuscular Hemoglobin 29 pg (28-32); Mean Corpuscular Volume 87 fl (84-94); Platelet Count 392 K/mm3 (140-440); Red Blood Count 2.86 M/mm3 (3.65-5.03); Red Cell Distribution Width 14.9 % (13.2-15.2)
[2018-05-31] MEDS: HumuLIN R SUB-Q SCH ×4 (06:02→18:05)
[2018-05-31 06:20] LABS: Calcium 7.3 mg/dL (8.4-10.2)
[2018-05-31 07:31] LABS: Anisocytosis 1+; Band Neutrophils # (Manual) 0.4 K/mm3; Basophils % (Manual) 0 % (0.0-1.8); Hypochromasia Few; Myelocytes # (Manual) 0.2 K/mm3; Total Cells Counted 100
[2018-05-31 07:32] LABS: Ovalocytes 1+; Target Cells Rare
[2018-05-31 08:01] LABS: Hepatitis A Antibody IgM NonReactive (NonReactive)
--- NOTE | 2018-05-31 08:19 | Hem/Onc Progress Note ---
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 Ultrasound Kidneys showed bilat hydronephrosis CT Abd shows Pelvic mass with multiple large lymph nodes Had bilateral nephrostomy tubes placed 05/14/[address] Freeman. abnormal renal function - HD plans - as per nephrology #Acute DVT right leg - below knee No anticoagulation for now because of bilateral nephrostomy tubes and acute abdo issues. 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 pt intubated will await path of the bx done at the time of sx on 05/26 - Patient Problems (1) Pelvic mass in male Current Visit: Yes Status: Acute Subjective Date of service: 05/31/18 Principal diagnosis: pelvic mass Interval history: pt in critical unit - on vent - NGT pt had diverting colostomy 05/26 on vent - awake central line in neck has colostomy - nephrostomy and abdo drain no BM in stomy reviewed notes of pulm - sx team Objective - Constitutional Vitals: Last Vital Signs Temp 99.6 F 05/31/18 04:00 Pulse 104 H 05/31/18 06:00 Resp 21 05/31/18 06:00 BP 116/76 05/31/18 06:00 Pulse Ox 97 05/31/18 06:00 Performance status: 4-completely disabled (intubated) - EENT Eyes: PERRL Lymph node exam: negative cervical, negative supraclavicular - Respiratory Respiratory effort: Positive: other (on vent) Respiratory: bilateral: CTA (anteriorly) - Cardiovascular Heart Sounds: Present: S1 & S2 Extremities: No edema - Gastrointestinal General gastrointestinal: Present: other (bandage post sx - drain + colostomy+) Rectal Exam: deferred - Genitourinary Male genitourinary: Present: deferred - Integumentary Integumentary: warm - Musculoskeletal Musculoskeletal: strength equal bilaterally - Neurologic Neurologic: moves all extremities - Labs Lab Results: Laboratory Results - last 24 hr 05/27/18 05/30/18 05/30/18 13:41 12:10 12:13 WBC RBC Hgb Hct MCV MCH MCHC RDW Plt Count Add Manual Diff Total Counted Seg Neuts % (Manual) Band Neutrophils % Lymphocytes % (Manual) Reactive Lymphs % (Man) Monocytes % (Manual) Eosinophils % (Manual) Basophils % (Manual) Metamyelocytes % Myelocytes % Promyelocytes % Blast Cells % Nucleated RBC % Seg Neutrophils # Man Band Neutrophils # Lymphocytes # (Manual) Abs React Lymphs (Man) Monocytes # (Manual) Eosinophils # (Manual) Basophils # (Manual) Metamyelocytes # Myelocytes # Promyelocytes # Blast Cells # WBC Morphology Hypersegmented Neuts Hyposegmented Neuts Hypogranular Neuts Smudge Cells Toxic Granulation Toxic Vacuolation Dohle Bodies Pelger-Huet Anomaly Mahesh Rods Platelet Estimate Clumped Platelets Plt Clumps, EDTA Large Platelets Giant Platelets Platelet Satelliting Plt Morphology Comment RBC Morphology Dimorphic RBCs Polychromasia Hypochromasia Poikilocytosis Anisocytosis Microcytosis Macrocytosis Spherocytes Pappenheimer Bodies Sickle Cells Target Cells Tear Drop Cells Ovalocytes Helmet Cells Hernandez-[place] Bodies Lamoni Rings Nory Cells Bite Cells Crenated Cell Elliptocytes Acanthocytes (Spur) Rouleaux Hemoglobin C Crystals Schistocytes Malaria parasites Mk Bodies Hem Pathologist Commnt POC ABG pH 7.388 POC ABG pCO2 36.0 POC ABG pO2 82 POC ABG HCO3 21.7 POC ABG Total CO2 23 POC ABG O2 Sat 96 POC ABG Base Excess -3 FiO2 40 Sodium Potassium Chloride Carbon Dioxide Anion Gap BUN Creatinine Estimated GFR BUN/Creatinine Ratio Glucose POC Glucose 132 H Calcium Phosphorus Magnesium Hepatitis A IgM Ab Nonreactive 05/30/18 05/31/18 05/31/18 17:10 00:22 04:50 WBC 18.7 H RBC 2.86 L Hgb 8.2 L Hct 24.8 L MCV 87 MCH 29 MCHC 33 RDW 14.9 Plt Count 392 Add Manual Diff Complete Total Counted 100 Seg Neuts % (Manual) 91.0 H Band Neutrophils % 2.0 Lymphocytes % (Manual) 2.0 L Reactive Lymphs % (Man) 0 Monocytes % (Manual) 2.0 Eosinophils % (Manual) 1.0 Basophils % (Manual) 0 Metamyelocytes % 1.0 Myelocytes % 1.0 Promyelocytes % 0 Blast Cells % 0 Nucleated RBC % Not Reportable Seg Neutrophils # Man 17.0 H Band Neutrophils # 0.4 Lymphocytes # (Manual) 0.4 L Abs React Lymphs (Man) 0.0 Monocytes # (Manual) 0.4 Eosinophils # (Manual) 0.2 Basophils # (Manual) 0.0 Metamyelocytes # 0.2 Myelocytes # 0.2 Promyelocytes # 0.0 Blast Cells # 0.0 WBC Morphology Not Reportable Hypersegmented Neuts Not Reportable Hyposegmented Neuts Not Reportable Hypogranular Neuts Not Reportable Smudge Cells Not Reportable Toxic Granulation Not Reportable Toxic Vacuolation Not Reportable Dohle Bodies Not Reportable Pelger-Huet Anomaly Not Reportable Mahesh Rods Not Reportable Platelet Estimate Appears normal Clumped Platelets Not Reportable Plt Clumps, EDTA Not Reportable Large Platelets Not Reportable Giant Platelets Not Reportable Platelet Satelliting Not Reportable Plt Morphology Comment Not Reportable RBC Morphology Not Reportable Dimorphic RBCs Not Reportable Polychromasia Not Reportable Hypochromasia Few Poikilocytosis Not Reportable Anisocytosis 1+ Microcytosis Few Macrocytosis Not Reportable Spherocytes Not Reportable Pappenheimer Bodies Not Reportable Sickle Cells Not Reportable Target Cells Rare Tear Drop Cells Not Reportable Ovalocytes 1+ Helmet Cells Not Reportable Hernandez-[place] Bodies Not Reportable Lamoni Rings Not Reportable [place] Cells Not Reportable Bite Cells Not Reportable Crenated Cell Not Reportable Elliptocytes Not Reportable Acanthocytes (Spur) Not Reportable Rouleaux Not Reportable Hemoglobin C Crystals Not Reportable Schistocytes Not Reportable Malaria parasites Not Reportable Mk Bodies Not Reportable Hem Pathologist Commnt No POC ABG pH POC ABG pCO2 POC ABG pO2 POC ABG HCO3 POC ABG Total CO2 POC ABG O2 Sat POC ABG Base Excess FiO2 Sodium Potassium Chloride Carbon Dioxide Anion Gap BUN Creatinine Estimated GFR BUN/Creatinine Ratio Glucose POC Glucose 122 H 105 Calcium Phosphorus Magnesium Hepatitis A IgM Ab 05/31/18 05/31/18 04:50 05:45 WBC RBC Hgb Hct MCV MCH MCHC RDW Plt Count Add Manual Diff Total Counted Seg Neuts % (Manual) Band Neutrophils % Lymphocytes % (Manual) Reactive Lymphs % (Man) Monocytes % (Manual) Eosinophils % (Manual) Basophils % (Manual) Metamyelocytes % Myelocytes % Promyelocytes % Blast Cells % Nucleated RBC % Seg Neutrophils # Man Band Neutrophils # Lymphocytes # (Manual) Abs React Lymphs (Man) Monocytes # (Manual) Eosinophils # (Manual) Basophils # (Manual) Metamyelocytes # Myelocytes # Promyelocytes # Blast Cells # WBC Morphology Hypersegmented Neuts Hyposegmented Neuts Hypogranular Neuts Smudge Cells Toxic Granulation Toxic Vacuolation Dohle Bodies Pelger-Huet Anomaly Mahesh Rods Platelet Estimate Clumped Platelets Plt Clumps, EDTA Large Platelets Giant Platelets Platelet Satelliting Plt Morphology Comment RBC Morphology Dimorphic RBCs Polychromasia Hypochromasia Poikilocytosis Anisocytosis Microcytosis Macrocytosis Spherocytes Pappenheimer Bodies Sickle Cells Target Cells Tear Drop Cells Ovalocytes Helmet Cells Hernandez-[place] Bodies Lamoni Rings Nory Cells Bite Cells Crenated Cell Elliptocytes Acanthocytes (Spur) Rouleaux Hemoglobin C Crystals Schistocytes Malaria parasites Mk Bodies Hem Pathologist Commnt POC ABG pH POC ABG pCO2 POC ABG pO2 POC ABG HCO3 POC ABG Total CO2 POC ABG O2 Sat POC ABG Base Excess FiO2 Sodium 132 L Potassium 3.9 Chloride 92.4 L Carbon Dioxide 22 Anion Gap 22 BUN 77 H Creatinine 5.9 H Estimated GFR 12 BUN/Creatinine Ratio 13 Glucose 99 POC Glucose 111 H Calcium 7.3 L Phosphorus 6.40 H D Magnesium 2.10 Hepatitis A IgM Ab
--- NOTE | 2018-05-31 08:19 | Progress Note ---
Assessment and Plan Assessment and plan: 1. Acute hypoxemic respiratory failure( possibly 2nd to PNA) Remain intubated/sedated Pulmonary following Ventillator management per pulmonary Plan for extubation today post HD 2. Bilateral pneumonia (possibly aspiration) Monitor respiratory status Nebs PRN 3. Sepsis syndrome On cefepime 4. Acute kidney injury (obstructive uropathy vrs contrast nephropathy) post HD today day#3 Continue to monitor kidney fuction 5. Pelvic mass (primary unknow) s/p cystoscopy pathology pending 6. Leukocytosis( likely due to sepsis) Continue Cefepime 7. Acute deep venous thrombosis Anticoagulant with Heparin continue 8. Moderate to severe protein calorie malnutrition On tube feeding 9. Anemia, normocytic. (ABLA) Coninue to monitor H&H History Interval history: Pt is supine in bed with eyes closed, intubated and sedated, no acute distress. Hospitalist Physical - Physical exam Narrative exam: Respiration even, unlabor, - Constitutional Vitals: Temp Pulse Resp BP Pulse Ox 99.6 F 104 H 21 116/76 97 05/31/18 04:00 05/31/18 06:00 05/31/18 06:00 05/31/18 06:00 05/31/18 06:00 General appearance: Present: mild distress, cachectic Results - Labs CBC & Chem 7: 05/31/18 04:50 05/31/18 04:50 Labs: Laboratory Last Values WBC 18.7 K/mm3 (4.5-11.0) H 05/31/18 04:50 RBC 2.86 M/mm3 (3.65-5.03) L 05/31/18 04:50 Hgb 8.2 gm/dl (11.8-15.2) L 05/31/18 04:50 Hct 24.8 % (35.5-45.6) L 05/31/18 04:50 MCV 87 fl (84-94) 05/31/18 04:50 MCH 29 pg (28-32) 05/31/18 04:50 MCHC 33 % (32-34) 05/31/18 04:50 RDW 14.9 % (13.2-15.2) 05/31/18 04:50 Plt Count 392 K/mm3 (140-440) 05/31/18 04:50 Lymph % (Auto) [employer] 05/28/18 05:00 [place] % (Auto) [employer] 05/28/18 05:00 Eos % (Auto) [employer] 05/28/18 05:00 Baso % (Auto) [employer] 05/28/18 05:00 Lymph # [employer] 05/28/18 05:00 [place] # [employer] 05/28/18 05:00 Eos # [employer] 05/28/18 05:00 Baso # [employer] 05/28/18 05:00 Add Manual Diff Complete 05/31/18 04:50 Total Counted 100 05/31/18 04:50 Seg Neutrophils % [employer] 05/28/18 05:00 Seg Neuts % (Manual) 91.0 % (40.0-70.0) H 05/31/18 04:50 Band Neutrophils % 2.0 % 05/31/18 04:50 Lymphocytes % (Manual) 2.0 % (13.4-35.0) L 05/31/18 04:50 Reactive Lymphs % (Man) 0 % 05/31/18 04:50 Monocytes % (Manual) 2.0 % (0.0-7.3) 05/31/18 04:50 Eosinophils % (Manual) 1.0 % (0.0-4.3) 05/31/18 04:50 Basophils % (Manual) 0 % (0.0-1.8) 05/31/18 04:50 Metamyelocytes % 1.0 % 05/31/18 04:50 Myelocytes % 1.0 % 05/31/18 04:50 Promyelocytes % 0 % 05/31/18 04:50 Blast Cells % 0 % 05/31/18 04:50 Nucleated RBC % Not Reportable 05/31/18 04:50 Seg Neutrophils # [employer] 05/28/18 05:00 Seg Neutrophils # Man 17.0 K/mm3 (1.8-7.7) H 05/31/18 04:50 Band Neutrophils # 0.4 K/mm3 05/31/18 04:50 Lymphocytes # (Manual) 0.4 K/mm3 (1.2-5.4) L 05/31/18 04:50 Abs React Lymphs (Man) 0.0 K/mm3 05/31/18 04:50 Monocytes # (Manual) 0.4 K/mm3 (0.0-0.8) 05/31/18 04:50 Eosinophils # (Manual) 0.2 K/mm3 (0.0-0.4) 05/31/18 04:50 Basophils # (Manual) 0.0 K/mm3 (0.0-0.1) 05/31/18 04:50 Metamyelocytes # 0.2 K/mm3 05/31/18 04:50 Myelocytes # 0.2 K/mm3 05/31/18 04:50 Promyelocytes # 0.0 K/mm3 05/31/18 04:50 Blast Cells # 0.0 K/mm3 05/31/18 04:50 WBC Morphology Not Reportable 05/31/18 04:50 Hypersegmented Neuts Not Reportable 05/31/18 04:50 Hyposegmented Neuts Not Reportable 05/31/18 04:50 Hypogranular Neuts Not Reportable 05/31/18 04:50 Smudge Cells Not Reportable 05/31/18 04:50 Toxic Granulation Not Reportable 05/31/18 04:50 Toxic Vacuolation Not Reportable 05/31/18 04:50 Dohle Bodies Not Reportable 05/31/18 04:50 Pelger-Huet Anomaly Not Reportable 05/31/18 04:50 Mahesh Rods Not Reportable 05/31/18 04:50 Platelet Estimate Appears normal 05/31/18 04:50 Clumped Platelets Not Reportable 05/31/18 04:50 Plt Clumps, EDTA Not Reportable 05/31/18 04:50 Large Platelets Not Reportable 05/31/18 04:50 Giant Platelets Not Reportable 05/31/18 04:50 Platelet Satelliting Not Reportable 05/31/18 04:50 Plt Morphology Comment Not Reportable 05/31/18 04:50 RBC Morphology Not Reportable 05/31/18 04:50 Dimorphic RBCs Not Reportable 05/31/18 04:50 Polychromasia Not Reportable 05/31/18 04:50 Hypochromasia Few 05/31/18 04:50 Poikilocytosis Not Reportable 05/31/18 04:50 Anisocytosis 1+ 05/31/18 04:50 Microcytosis Few 05/31/18 04:50 Macrocytosis Not Reportable 05/31/18 04:50 Spherocytes Not Reportable 05/31/18 04:50 Pappenheimer Bodies Not Reportable 05/31/18 04:50 Sickle Cells Not Reportable 05/31/18 04:50 Target Cells Rare 05/31/18 04:50 Tear Drop Cells Not Reportable 05/31/18 04:50 Ovalocytes 1+ 05/31/18 04:50 Helmet Cells Not Reportable 05/31/18 04:50 Hernandez-[place] Bodies Not Reportable 05/31/18 04:50 [place] Rings Not Reportable 05/31/18 04:50 Nory Cells Not Reportable 05/31/18 04:50 Bite Cells Not Reportable 05/31/18 04:50 Crenated Cell Not Reportable 05/31/18 04:50 Elliptocytes Not Reportable 05/31/18 04:50 Acanthocytes (Spur) Not Reportable 05/31/18 04:50 Rouleaux Not Reportable 05/31/18 04:50 Hemoglobin C Crystals Not Reportable 05/31/18 04:50 Schistocytes Not Reportable 05/31/18 04:50 Malaria parasites Not Reportable 05/31/18 04:50 Mk Bodies Not Reportable 05/31/18 04:50 Hem Pathologist Commnt No 05/31/18 04:50 PT 18.3 Sec. (12.2-14.9) H 05/23/18 09:03 INR 1.43 (0.87-1.13) H 05/23/18 09:03 APTT 40.0 Sec. (24.2-36.6) H 05/23/18 09:03 POC ABG pH 7.388 (7.35-7.45) 05/30/18 12:10 POC ABG pCO2 36.0 (35-45) 05/30/18 12:10 POC ABG pO2 82 (80-105) 05/30/18 12:10 POC ABG HCO3 21.7 05/30/18 12:10 POC ABG Total CO2 23 05/30/18 12:10 POC ABG O2 Sat 96 05/30/18 12:10 POC ABG Base Excess -3 05/30/18 12:10 FiO2 40 % 05/30/18 12:10 Sodium 132 mmol/L (137-145) L 05/31/18 04:50 Potassium 3.9 mmol/L (3.6-5.0) 05/31/18 04:50 Chloride 92.4 mmol/L (98-107) L 05/31/18 04:50 Carbon Dioxide 22 mmol/L (22-30) 05/31/18 04:50 Anion Gap 22 mmol/L 05/31/18 04:50 BUN 77 mg/dL (9-20) H 05/31/18 04:50 Creatinine 5.9 mg/dL (0.8-1.5) H 05/31/18 04:50 Estimated GFR 12 ml/min 05/31/18 04:50 BUN/Creatinine Ratio 13 % 05/31/18 04:50 Glucose 99 mg/dL (75-100) 05/31/18 04:50 POC Glucose 111 (70-105) H 05/31/18 05:45 Hemoglobin A1c 5.7 % (4-6) 05/14/18 05:05 Lactic Acid 3.80 mmol/L (0.7-2.0) H* 05/26/18 11:00 Calcium 7.3 mg/dL (8.4-10.2) L 05/31/18 04:50 Phosphorus 6.40 mg/dL (2.5-4.5) H D 05/31/18 04:50 Magnesium 2.10 mg/dL (1.7-2.3) 05/31/18 04:50 Iron 24 ug/dL (49-181) L 05/16/18 07:02 TIBC 160 mcg/dL (250-450) L 05/16/18 07:02 Ferritin 325.8 ng/mL (13.0-400.0) 05/16/18 07:02 Total Bilirubin 1.00 mg/dL (0.1-1.2) 05/29/18 04:00 AST 218 units/L (5-40) H 05/29/18 04:00 ALT 204 units/L (7-56) H 05/29/18 04:00 Alkaline Phosphatase 91 units/L (35-129) 05/29/18 04:00 Total Creatine Kinase 156 units/L (55-170) 05/25/18 22:46 CK-MB (CK-2) 2.3 ng/mL (0.0-4.0) 05/25/18 22:46 CK-MB (CK-2) Rel Index 1.4 (0-4) 05/25/18 22:46 C-Reactive Protein 40.70 mg/dL (0.00-1.30) H 05/27/18 10:22 Total Protein 5.4 g/dL (6.3-8.2) L 05/29/18 04:00 Albumin 1.6 g/dL (3.9-5) L 05/29/18 04:00 Albumin/Globulin Ratio 0.4 % 05/29/18 04:00 Prostate Specific Ag 0.96 ng/mL (0.00-4.00) 05/14/18 13:29 Vitamin B12 359.2 pg/mL (211-911) 05/16/18 07:02 Folate 5.39 ng/mL (7.3-26.0) L 05/16/18 07:02 TSH 3.180 mlU/mL (0.270-4.200) 05/14/18 05:05 PTH Intact 65.37 pg/mL (15-65) H 05/14/18 05:05 Urine Color [place] (Yellow) 05/27/18 Unknown Urine Turbidity Cloudy (Clear) 05/27/18 Unknown Urine pH 5.0 (5.0-7.0) 05/27/18 Unknown Ur Specific [place] 1.026 (1.003-1.030) 05/27/18 Unknown Urine Protein 100 mg/dl mg/dL (Negative) 05/27/18 Unknown Urine Glucose (UA) 50 mg/dL (Negative) 05/27/18 Unknown Urine Ketones Neg mg/dL (Negative) 05/27/18 Unknown Urine Blood Lg (Negative) 05/27/18 Unknown Urine Nitrite Neg (Negative) 05/27/18 Unknown Urine Bilirubin Neg (Negative) 05/27/18 Unknown Urine Urobilinogen < 2.0 mg/dL (<2.0) 05/27/18 Unknown Ur Leukocyte Esterase Mod (Negative) 05/27/18 Unknown Urine WBC (Auto) 120.0 /HPF (0.0-6.0) H 05/27/18 Unknown Urine RBC (Auto) 35.0 /HPF (0.0-6.0) 05/27/18 Unknown U Epithel Cells (Auto) 3.0 /HPF (0-13.0) 05/27/18 Unknown Urine Bacteria (Auto) 1+ /HPF (Negative) 05/27/18 Unknown Urine WBC Clumps Few /HPF 05/13/18 19:39 Urine Mucus Few /HPF 05/27/18 Unknown Urine Yeast (Budding) 2+ /HPF 05/21/18 15:30 Urine Creatinine 66.0 mg/dL (0.1-20.0) H 05/13/18 19:39 Urine Sodium 60 mmol/L 05/13/18 19:39 Urine Potassium 8.69 mmol/L 05/13/18 19:39 Urine Chloride 27.8 mmolL (110-250) L 05/13/18 19:39 Urine Total Protein 24 mg/dL (5-11.8) H 05/13/18 19:39 Vancomycin Trough 25.1 ug/mL (5.0-20.0) H 05/25/18 22:46 Random Vancomycin 34.3 ug/mL (0-40.0) 05/26/18 11:01 Urine Opiates Screen Presumptive negative 05/13/18 19:39 Urine Methadone Screen Presumptive negative 05/13/18 19:39 Ur Barbiturates Screen Presumptive negative 05/13/18 19:39 Ur Phencyclidine Scrn Presumptive negative 05/13/18 19:39 Ur Amphetamines Screen Presumptive negative 05/13/18 19:39 U Benzodiazepines Scrn Presumptive negative 05/13/18 19:39 Urine Cocaine Screen Presumptive negative 05/13/18 19:39 U Marijuana (THC) Screen Presumptive negative 05/13/18 19:39 Drugs of Abuse Note Disclamer 05/13/18 19:39 ZEUS Screen Negative (Negative) 05/14/18 05:05 Proteinase 3 (PR3) Ab <1.0 AI (<1.0) 05/14/18 05:05 Myeloperoxidase Ab <1.0 AI (<1.0) 05/14/18 05:05 Complement C3 147 mg/dL (82-185) 05/14/18 05:05 Complement C4 45 mg/dL (15-53) 05/14/18 05:05 Hepatitis A IgM Ab Nonreactive (NonReactive) 05/27/18 13:41 Hep Bs Antigen Non-reactive (Negative) 05/27/18 13:41 Hep B Core IgM Ab Non-reactive (NonReactive) 05/27/18 13:41 Hepatitis C Antibody Non-reactive (NonReactive) 05/27/18 13:41 Blood Type O POSITIVE 05/22/18 11:23 Antibody Screen Negative 05/22/18 11:23 Crossmatch See Detail 05/22/18 11:23
[2018-05-31] MEDS: ZYVOX 600MG/300ML 600 MG/300 ML BAG IV SCH (09:03)
[2018-05-31] MEDS: PEPCID IV SCH (09:04)
[2018-05-31] MEDS: HEPARIN SUB-Q SCH ×2 (09:04→22:29)
[2018-05-31] MEDS: MAXIPIME/NS 2 GM/100 ML 2 GM/100 ML BAG IV SCH (09:04)
--- NOTE | 2018-05-31 09:14 | Progress Note ---
Assessment and Plan 1. Acute kidney injury: Recurrent Acute kidney injury. Initial MARYLOU in the setting of bilateral hydronephrosis secondary to pelvic mass , now s/p bilateral nephrostomy. Patient required urgent hemodialysis 3 days ago due to worsening renal function and persistent hyperkalemia. No improvement in the Renal function. HD today with no fluid removal. Monitor for KENNEL HELPER needs. Renal prognosis is guarded. 2. Electrolytes: Hyponatremia, monitor. Hyperkalemia, K level is better. 3. Bowel obstruction: S/p ostomy. 4. Bilateral hydronephrosis: S/p bilateral nephrostomy. S/p Cysto and drainage of abscess. 5. Respiratory failure: On vent. 6. Hypotension: BP is better. 7. Anemia: Epogen with HD. 8. 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 Subjective Date of service: 05/31/18 Principal diagnosis: pelvic mass Interval history: Patient was seen and examined at the bedside. Objective - Vital Signs Vital signs: Vital Signs - 12hr 05/30/18 05/30/18 05/30/18 21:15 21:30 21:45 Temperature Pulse Rate 112 H 114 H 103 H Pulse Rate [ From Monitor] Respiratory 22 25 H 22 Rate Blood Pressure 115/73 111/72 115/73 O2 Sat by Pulse 100 98 100 Oximetry 05/30/18 05/30/18 05/30/18 21:57 22:00 22:15 Temperature Pulse Rate 112 H 102 H 104 H Pulse Rate [ From Monitor] Respiratory 22 21 Rate Blood Pressure 111/72 110/72 110/72 O2 Sat by Pulse 99 100 Oximetry 05/30/18 05/30/18 05/30/18 22:30 22:45 22:47 Temperature Pulse Rate 104 H 105 H 109 H Pulse Rate [ From Monitor] Respiratory 19 18 24 Rate Blood Pressure 116/72 116/72 116/72 O2 Sat by Pulse 97 100 100 Oximetry 05/30/18 05/30/18 05/30/18 22:49 23:00 23:15 Temperature Pulse Rate 108 H 104 H 106 H Pulse Rate [ From Monitor] Respiratory 25 H 21 21 Rate Blood Pressure 116/72 120/71 120/71 O2 Sat by Pulse 100 97 100 Oximetry 05/30/18 05/30/18 05/31/18 23:30 23:45 00:00 Temperature 98.8 F Pulse Rate 105 H 106 H 107 H Pulse Rate [ 106 H From Monitor] Respiratory 20 22 25 H Rate Blood Pressure 118/73 120/71 127/75 O2 Sat by Pulse 98 100 97 Oximetry 05/31/18 05/31/18 05/31/18 00:15 00:30 00:45 Temperature Pulse Rate 104 H 107 H 108 H Pulse Rate [ From Monitor] Respiratory 18 22 22 Rate Blood Pressure 118/73 123/77 127/75 O2 Sat by Pulse 100 100 100 Oximetry 05/31/18 05/31/18 05/31/18 01:00 01:15 01:19 Temperature 98.8 F Pulse Rate 109 H 112 H Pulse Rate [ From Monitor] Respiratory 26 H 31 H Rate Blood Pressure 122/80 122/80 O2 Sat by Pulse 97 93 Oximetry 05/31/18 05/31/18 05/31/18 01:30 01:45 02:00 Temperature Pulse Rate 106 H 112 H 108 H Pulse Rate [ From Monitor] Respiratory 22 24 22 Rate Blood Pressure 119/73 122/80 120/77 O2 Sat by Pulse 96 100 99 Oximetry 05/31/18 05/31/18 05/31/18 02:15 02:30 02:45 Temperature Pulse Rate 108 H 108 H 110 H Pulse Rate [ From Monitor] Respiratory 20 21 25 H Rate Blood Pressure 119/73 123/78 123/78 O2 Sat by Pulse 100 99 100 Oximetry 05/31/18 05/31/18 05/31/18 03:00 03:15 03:30 Temperature Pulse Rate 105 H 106 H 115 H Pulse Rate [ From Monitor] Respiratory 21 18 23 Rate Blood Pressure 126/79 126/79 132/84 O2 Sat by Pulse 97 100 99 Oximetry 05/31/18 05/31/18 05/31/18 03:45 04:00 04:15 Temperature 99.6 F Pulse Rate 106 H 110 H 109 H Pulse Rate [ 114 H From Monitor] Respiratory 21 24 24 Rate Blood Pressure 126/79 125/78 132/84 O2 Sat by Pulse 100 100 99 Oximetry 05/31/18 05/31/18 05/31/18 04:31 04:45 05:00 Temperature Pulse Rate 83 120 H 115 H Pulse Rate [ From Monitor] Respiratory 13 29 H 21 Rate Blood Pressure 132/84 187/103 143/90 O2 Sat by Pulse 86 94 97 Oximetry 05/31/18 05/31/18 05/31/18 05:15 05:30 05:45 Temperature Pulse Rate 112 H 113 H 107 H Pulse Rate [ From Monitor] Respiratory 18 21 20 Rate Blood Pressure 143/90 120/73 140/89 O2 Sat by Pulse 96 97 Oximetry 05/31/18 05/31/18 05/31/18 06:00 06:15 06:30 Temperature Pulse Rate 104 H 100 H 102 H Pulse Rate [ From Monitor] Respiratory 21 16 19 Rate Blood Pressure 116/76 116/76 118/73 O2 Sat by Pulse 97 98 97 Oximetry 05/31/18 05/31/18 05/31/18 06:45 07:00 07:15 Temperature Pulse Rate 102 H 110 H 101 H Pulse Rate [ From Monitor] Respiratory 18 23 16 Rate Blood Pressure 118/73 118/75 118/75 O2 Sat by Pulse 99 99 100 Oximetry 05/31/18 05/31/18 05/31/18 07:30 07:45 08:00 Temperature 98.9 F Pulse Rate 104 H 102 H 106 H Pulse Rate [ From Monitor] Respiratory 21 19 20 Rate Blood Pressure 116/73 116/73 119/73 O2 Sat by Pulse 98 99 97 Oximetry 05/31/18 05/31/18 05/31/18 08:15 08:30 08:45 Temperature Pulse Rate 101 H 101 H 103 H Pulse Rate [ From Monitor] Respiratory 16 20 24 Rate Blood Pressure 119/73 117/73 117/73 O2 Sat by Pulse 98 96 100 Oximetry 05/31/18 05/31/18 09:00 09:10 Temperature Pulse Rate 97 H 101 H Pulse Rate [ From Monitor] Respiratory 18 Rate Blood Pressure 116/70 116/70 O2 Sat by Pulse 97 Oximetry - General Appearance General appearance: well-developed, appears stated age, intubated, other (on vent, FiO2 40%) EENT: ATNC, PERRL, hearing intact Neck: supple Respiratory: Present: Clear to Ascultation Cardiology: regular, S1S2, no murmurs Gastrointestinal: normoactive bowel sounds, distended, other (ostomy, drain and bilateral nephrostomy noted) Integumentary: no rash, warm and dry Neurologic: other (able to move extremities) Musculoskeletal: other (no edema) Psychiatric: cooperative - Lab 05/31/18 04:50 05/31/18 04:50 Most recent lab results Calcium 7.3 mg/dL (8.4-10.2) L 05/31/18 04:50 Phosphorus 6.40 mg/dL (2.5-4.5) H D 05/31/18 04:50 Magnesium 2.10 mg/dL (1.7-2.3) 05/31/18 04:50 Urine Creatinine 66.0 mg/dL (0.1-20.0) H 05/13/18 19:39 Urine Sodium 60 mmol/L 05/13/18 19:39 Urine Total Protein 24 mg/dL (5-11.8) H 05/13/18 19:39
[2018-05-31] MEDS ORDERED: NACL 0.9% 100 ML IV PRN (09:17)
--- NOTE | 2018-05-31 09:59 | Progress Note ---
Assessment and Plan Acute hypoxic respiratory failure on MVS Sepsis SBO Pelvic mass -Differentiated carcinoma with squamous differentiation on pathology but unsure of exact primary Acute kidney injury , obstructive nephropathy Acute DVT right femoral vein. Hypertensive urgency, Sinus tachycardia with HR 160s CTA negative for PE Metabolic acidosis Acute blood loss anemia Moderate to severe protein calorie malnutrition - get weaning parameters, post HD. If acceptable plan to liberate from MVS. If needed will use nocturnal NIPPV for ventilatory support - continue supplemental oxygen to keep sats > 90% - VAP bundle addressed - continue bronchodilators with pulmonary hygiene per RT - HD/UF for toxin and volume clearance - continue anti-infective's per ID recs (Cefepime, Zyvox, flagyl) - continue TPN for now (enteral nutrition once cleared by surgery) - Malignancy per heme-oncologist - continue mobility protocol for pressure ulcer prevention -PT/OT to evaluate and treat - s/p surgery 05/26 (had ex-lap; matted abdominal organs, pus - Enterostomy tube decompression,loop colostomy and large triple lumen sump drainage of pelvis) - s/p bilateral nephrostomy tubes placed 05/14/[address] Freeman. Full code status The high probability of a clinically significant, sudden or life threatening deterioration of the [respiratory,cardiac, urologic and renal] system(s) required my full and direct attention, intervention and personal management. The aggregate critical care time was [35] minutes without overlap. Time includes spent on; [x] Data Review and interpretation [x] Patient assessment and monitoring of vital signs [x] Documentation [x] Medication orders and management - Subjective Date of service: 05/31/18 Principal diagnosis: squamous cell ca - prostate bx - prelim report Interval history: Patient is seen today for: Acute Hypoxemic Resp Failure; Sepsis Syndrome; Acute VTE; Prostate Cancer On 05/26 patient underwent a diverting colostomy, s/p bilateral nephrostomy tubes Seen and examined at bedside; 24hour events reviewed; nursing and respiratory care staff consulted; no adverse overnight events reported to me; resting peacefully; tenuously tolerating SBT; still nods head "No" to pain question; remains on TPN; no emesis or overt aspiration and no gross bleeding noted. Still making some urine;awake and alert, appropriate responses; on HD via femoral vascath. Continues to tolerate PSV trials Objective Vital Signs - 12hr 05/30/18 05/30/18 05/30/18 22:00 22:15 22:30 Temperature Pulse Rate 102 H 104 H 104 H Pulse Rate [ From Monitor] Respiratory 22 21 19 Rate Blood Pressure 110/72 110/72 116/72 O2 Sat by Pulse 99 100 97 Oximetry 05/30/18 05/30/18 05/30/18 22:45 22:47 22:49 Temperature Pulse Rate 105 H 109 H 108 H Pulse Rate [ From Monitor] Respiratory 18 24 25 H Rate Blood Pressure 116/72 116/72 116/72 O2 Sat by Pulse 100 100 100 Oximetry 05/30/18 05/30/18 05/30/18 23:00 23:15 23:30 Temperature Pulse Rate 104 H 106 H 105 H Pulse Rate [ From Monitor] Respiratory 21 21 20 Rate Blood Pressure 120/71 120/71 118/73 O2 Sat by Pulse 97 100 98 Oximetry 05/30/18 05/31/18 05/31/18 23:45 00:00 00:15 Temperature 98.8 F Pulse Rate 106 H 107 H 104 H Pulse Rate [ 106 H From Monitor] Respiratory 22 25 H 18 Rate Blood Pressure 120/71 127/75 118/73 O2 Sat by Pulse 100 97 100 Oximetry 05/31/18 05/31/18 05/31/18 00:30 00:45 01:00 Temperature Pulse Rate 107 H 108 H 109 H Pulse Rate [ From Monitor] Respiratory 22 22 26 H Rate Blood Pressure 123/77 127/75 122/80 O2 Sat by Pulse 100 100 97 Oximetry 05/31/18 05/31/18 05/31/18 01:15 01:19 01:30 Temperature 98.8 F Pulse Rate 112 H 106 H Pulse Rate [ From Monitor] Respiratory 31 H 22 Rate Blood Pressure 122/80 119/73 O2 Sat by Pulse 93 96 Oximetry 05/31/18 05/31/18 05/31/18 01:45 02:00 02:15 Temperature Pulse Rate 112 H 108 H 108 H Pulse Rate [ From Monitor] Respiratory 24 22 20 Rate Blood Pressure 122/80 120/77 119/73 O2 Sat by Pulse 100 99 100 Oximetry 05/31/18 05/31/18 05/31/18 02:30 02:45 03:00 Temperature Pulse Rate 108 H 110 H 105 H Pulse Rate [ From Monitor] Respiratory 21 25 H 21 Rate Blood Pressure 123/78 123/78 126/79 O2 Sat by Pulse 99 100 97 Oximetry 05/31/18 05/31/18 05/31/18 03:15 03:30 03:45 Temperature Pulse Rate 106 H 115 H 106 H Pulse Rate [ From Monitor] Respiratory 18 23 21 Rate Blood Pressure 126/79 132/84 126/79 O2 Sat by Pulse 100 99 100 Oximetry 05/31/18 05/31/18 05/31/18 04:00 04:15 04:31 Temperature 99.6 F Pulse Rate 110 H 109 H 83 Pulse Rate [ 114 H From Monitor] Respiratory 24 24 13 Rate Blood Pressure 125/78 132/84 132/84 O2 Sat by Pulse 100 99 86 Oximetry 05/31/18 05/31/18 05/31/18 04:45 05:00 05:15 Temperature Pulse Rate 120 H 115 H 112 H Pulse Rate [ From Monitor] Respiratory 29 H 21 18 Rate Blood Pressure 187/103 143/90 143/90 O2 Sat by Pulse 94 97 96 Oximetry 05/31/18 05/31/18 05/31/18 05:30 05:45 06:00 Temperature Pulse Rate 113 H 107 H 104 H Pulse Rate [ From Monitor] Respiratory 21 20 21 Rate Blood Pressure 120/73 140/89 116/76 O2 Sat by Pulse 97 97 Oximetry 05/31/18 05/31/18 05/31/18 06:15 06:30 06:45 Temperature Pulse Rate 100 H 102 H 102 H Pulse Rate [ From Monitor] Respiratory 16 19 18 Rate Blood Pressure 116/76 118/73 118/73 O2 Sat by Pulse 98 97 99 Oximetry 05/31/18 05/31/18 05/31/18 07:00 07:15 07:30 Temperature Pulse Rate 110 H 101 H 104 H Pulse Rate [ From Monitor] Respiratory 23 16 21 Rate Blood Pressure 118/75 118/75 116/73 O2 Sat by Pulse 99 100 98 Oximetry 05/31/18 05/31/18 05/31/18 07:45 08:00 08:15 Temperature 98.9 F Pulse Rate 102 H 106 H 101 H Pulse Rate [ From Monitor] Respiratory 19 20 16 Rate Blood Pressure 116/73 119/73 119/73 O2 Sat by Pulse 99 97 98 Oximetry 05/31/18 05/31/18 05/31/18 08:30 08:45 09:00 Temperature Pulse Rate 101 H 103 H 97 H Pulse Rate [ From Monitor] Respiratory 20 24 18 Rate Blood Pressure 117/73 117/73 116/70 O2 Sat by Pulse 96 100 97 Oximetry 05/31/18 05/31/18 09:10 09:38 Temperature Pulse Rate 101 H 96 H Pulse Rate [ From Monitor] Respiratory 22 Rate Blood Pressure 116/70 109/70 O2 Sat by Pulse 100 Oximetry Constitutional: alert, other (chronically ill looking middle aged AAM, normocephalic and atraumatic, orally intubated) Eyes: non-icteric ENT: oropharynx moist, other (ETT 23 cm BEATRIS) Neck: supple, no lymphadenopathy, no JVD, other (no thyromegaly) Effort: normal Ascultation: Bilateral: diminished breath sounds, rhonchi (scant in bases) Percussion: Bilateral: not dull Cardiovascular: regular rate and rhythm, other (No R/M) Gastrointestinal: hypoactive bowel sounds, soft, tender (mild), other (Distended ; No palpable HSM, bilateral nephrostomy tubes, avila catheter) Integumentary: other (femoral vascath) Extremities: no cyanosis, no edema, pulses normal, no ischemia or petechiae Neurologic: normal mental status, non-focal exam, pupils equal and round, other (weak) Psychiatric: mood appropriate, affect normal CBC and BMP: 05/31/18 04:50 05/31/18 04:50 ABG, PT/INR, D-dimer: ABG POC ABG pH 7.388 (7.35-7.45) 05/30/18 12:10 POC ABG pCO2 36.0 (35-45) 05/30/18 12:10 POC ABG pO2 82 (80-105) 05/30/18 12:10 POC ABG HCO3 21.7 05/30/18 12:10 POC ABG Total CO2 23 05/30/18 12:10 POC ABG O2 Sat 96 05/30/18 12:10 PT/INR, D-dimer PT 18.3 Sec. (12.2-14.9) H 05/23/18 09:03 INR 1.43 (0.87-1.13) H 05/23/18 09:03 Abnormal lab findings: Abnormal Labs 05/13/18 05/13/18 05/13/18 04:27 04:27 19:39 WBC RBC 3.13 L Hgb 9.4 L Hct 26.8 L MCHC 35 H RDW Lymph % (Auto) [place] % (Auto) 9.6 H Lymph # [place] # Seg Neutrophils % Seg Neuts % (Manual) Lymphocytes % (Manual) Seg Neutrophils # Seg Neutrophils # Man Lymphocytes # (Manual) PT INR APTT POC ABG pH POC ABG pCO2 POC ABG pO2 Sodium 132 L Potassium 5.5 H Chloride 94.1 L Carbon Dioxide 19 L BUN 72 H Creatinine 14.4 H Glucose POC Glucose Lactic Acid Calcium Phosphorus Magnesium Iron TIBC AST ALT Alkaline Phosphatase Total Creatine Kinase C-Reactive Protein Total Protein Albumin 2.8 L Folate PTH Intact Urine WBC (Auto) Urine Creatinine 66.0 H Urine Chloride 27.8 L Urine Total Protein 24 H Vancomycin Trough Crossmatch 05/13/18 05/14/18 05/14/18 20:00 05:05 05:05 WBC RBC Hgb Hct MCHC RDW Lymph % (Auto) [place] % (Auto) Lymph # [place] # Seg Neutrophils % Seg Neuts % (Manual) Lymphocytes % (Manual) Seg Neutrophils # Seg Neutrophils # Man Lymphocytes # (Manual) PT INR APTT POC ABG pH POC ABG pCO2 POC ABG pO2 Sodium 132 L 131 L Potassium 5.2 H 5.8 H Chloride 93.0 L 95.6 L Carbon Dioxide 19 L 20 L BUN 74 H 81 H Creatinine 15.0 H 16.6 H Glucose 134 H 127 H POC Glucose Lactic Acid Calcium 8.2 L 7.9 L Phosphorus 6.30 H Magnesium Iron TIBC AST ALT Alkaline Phosphatase Total Creatine Kinase 236 H C-Reactive Protein Total Protein Albumin Folate PTH Intact 65.37 H Urine WBC (Auto) Urine Creatinine Urine Chloride Urine Total Protein Vancomycin Trough Crossmatch 05/14/18 05/14/18 05/14/18 09:28 10:56 13:29 WBC RBC Hgb Hct MCHC RDW Lymph % (Auto) [place] % (Auto) Lymph # [place] # Seg Neutrophils % Seg Neuts % (Manual) Lymphocytes % (Manual) Seg Neutrophils # Seg Neutrophils # Man Lymphocytes # (Manual) PT INR APTT 38.2 H POC ABG pH POC ABG pCO2 POC ABG pO2 Sodium Potassium Chloride Carbon Dioxide BUN Creatinine Glucose POC Glucose 127 H 126 H Lactic Acid Calcium Phosphorus Magnesium Iron TIBC AST ALT Alkaline Phosphatase Total Creatine Kinase C-Reactive Protein Total Protein Albumin Folate PTH Intact Urine WBC (Auto) Urine Creatinine Urine Chloride Urine Total Protein Vancomycin Trough Crossmatch 05/15/18 05/15/18 05/16/18 08:06 08:06 07:02 WBC RBC 2.84 L 2.74 L Hgb 8.5 L 8.5 L Hct 24.2 L 23.5 L MCHC 35 H 36 H RDW Lymph % (Auto) [place] % (Auto) 10.4 H 11.0 H Lymph # 1.1 L [place] # 0.9 H Seg Neutrophils % 72.6 H Seg Neuts % (Manual) Lymphocytes % (Manual) Seg Neutrophils # Seg Neutrophils # Man Lymphocytes # (Manual) PT INR APTT POC ABG pH POC ABG pCO2 POC ABG pO2 Sodium Potassium Chloride Carbon Dioxide 19 L BUN 66 H Creatinine 12.0 H Glucose 115 H POC Glucose Lactic Acid Calcium 8.1 L Phosphorus Magnesium Iron TIBC AST ALT Alkaline Phosphatase Total Creatine Kinase C-Reactive Protein Total Protein Albumin Folate PTH Intact Urine WBC (Auto) Urine Creatinine Urine Chloride Urine Total Protein Vancomycin Trough Crossmatch 05/16/18 05/16/18 05/17/18 07:02 07:02 05:08 WBC RBC 2.78 L Hgb 8.2 L Hct 23.9 L MCHC RDW Lymph % (Auto) [place] % (Auto) 13.9 H Lymph # [place] # 0.9 H Seg Neutrophils % Seg Neuts % (Manual) Lymphocytes % (Manual) Seg Neutrophils # Seg Neutrophils # Man Lymphocytes # (Manual) PT INR APTT POC ABG pH POC ABG pCO2 POC ABG pO2 Sodium Potassium Chloride Carbon Dioxide BUN 28 H Creatinine 2.4 H D Glucose POC Glucose Lactic Acid Calcium 8.3 L Phosphorus Magnesium 1.50 L Iron 24 L TIBC 160 L AST ALT Alkaline Phosphatase Total Creatine Kinase C-Reactive Protein Total Protein Albumin Folate 5.39 L PTH Intact Urine WBC (Auto) Urine Creatinine Urine Chloride Urine Total Protein Vancomycin Trough Crossmatch 05/17/18 05/18/18 05/18/18 05:08 05:57 05:57 WBC RBC 2.79 L Hgb 8.3 L Hct 24.0 L MCHC 35 H RDW Lymph % (Auto) [place] % (Auto) 11.8 H Lymph # [place] # 0.9 H Seg Neutrophils % Seg Neuts % (Manual) Lymphocytes % (Manual) Seg Neutrophils # Seg Neutrophils # Man Lymphocytes # (Manual) PT INR APTT POC ABG pH POC ABG pCO2 POC ABG pO2 Sodium Potassium Chloride Carbon Dioxide BUN Creatinine Glucose POC Glucose Lactic Acid Calcium 7.7 L 8.0 L Phosphorus Magnesium 1.60 L Iron TIBC AST ALT Alkaline Phosphatase Total Creatine Kinase C-Reactive Protein Total Protein Albumin Folate PTH Intact Urine WBC (Auto) Urine Creatinine Urine Chloride Urine Total Protein Vancomycin Trough Crossmatch 05/19/18 05/19/18 05/20/18 05:33 05:33 05:38 WBC RBC 2.95 L Hgb 8.8 L Hct 25.8 L MCHC RDW Lymph % (Auto) 10.1 L [place] % (Auto) Lymph # 1.1 L [place] # Seg Neutrophils % 85.2 H Seg Neuts % (Manual) Lymphocytes % (Manual) Seg Neutrophils # 9.0 H Seg Neutrophils # Man Lymphocytes # (Manual) PT INR APTT POC ABG pH POC ABG pCO2 POC ABG pO2 Sodium 135 L Potassium Chloride Carbon Dioxide BUN Creatinine Glucose 132 H POC Glucose Lactic Acid Calcium 7.8 L 8.3 L Phosphorus Magnesium 1.40 L Iron TIBC AST ALT Alkaline Phosphatase Total Creatine Kinase C-Reactive Protein Total Protein Albumin Folate PTH Intact Urine WBC (Auto) Urine Creatinine Urine Chloride Urine Total Protein Vancomycin Trough Crossmatch 05/21/18 05/21/18 05/22/18 04:46 15:30 06:49 WBC 20.0 H RBC 2.70 L Hgb 7.8 L Hct 23.3 L MCHC RDW Lymph % (Auto) [place] % (Auto) Lymph # [place] # Seg Neutrophils % Seg Neuts % (Manual) 85.0 H Lymphocytes % (Manual) 4.0 L Seg Neutrophils # Seg Neutrophils # Man 17.0 H Lymphocytes # (Manual) 0.8 L PT INR APTT POC ABG pH POC ABG pCO2 POC ABG pO2 Sodium 135 L Potassium 3.5 L Chloride Carbon Dioxide 21 L BUN 22 H Creatinine Glucose POC Glucose Lactic Acid Calcium 8.1 L Phosphorus Magnesium Iron TIBC AST ALT Alkaline Phosphatase Total Creatine Kinase C-Reactive Protein Total Protein Albumin Folate PTH Intact Urine WBC (Auto) 28.0 H Urine Creatinine Urine Chloride Urine Total Protein Vancomycin Trough Crossmatch 05/22/18 05/22/18 05/23/18 06:49 11:23 09:03 WBC RBC Hgb Hct MCHC RDW Lymph % (Auto) [place] % (Auto) Lymph # [place] # Seg Neutrophils % Seg Neuts % (Manual) Lymphocytes % (Manual) Seg Neutrophils # Seg Neutrophils # Man Lymphocytes # (Manual) PT INR APTT POC ABG pH POC ABG pCO2 POC ABG pO2 Sodium 134 L Potassium 3.5 L Chloride Carbon Dioxide 21 L BUN 35 H 36 H Creatinine 1.7 H Glucose 107 H POC Glucose Lactic Acid Calcium 7.9 L Phosphorus Magnesium 2.50 H Iron TIBC AST ALT Alkaline Phosphatase Total Creatine Kinase C-Reactive Protein Total Protein Albumin Folate PTH Intact Urine WBC (Auto) Urine Creatinine Urine Chloride Urine Total Protein Vancomycin Trough Crossmatch See Detail 05/23/18 05/23/18 05/23/18 09:03 09:03 17:34 WBC 26.3 H RBC 3.57 L Hgb 10.4 L Hct 31.1 L D MCHC RDW Lymph % (Auto) [place] % (Auto) Lymph # [place] # Seg Neutrophils % Seg Neuts % (Manual) Lymphocytes % (Manual) Seg Neutrophils # Seg Neutrophils # Man Lymphocytes # (Manual) PT 18.3 H INR 1.43 H APTT 40.0 H POC ABG pH POC ABG pCO2 POC ABG pO2 Sodium Potassium Chloride Carbon Dioxide BUN Creatinine Glucose POC Glucose 108 H Lactic Acid Calcium Phosphorus Magnesium Iron TIBC AST ALT Alkaline Phosphatase Total Creatine Kinase C-Reactive Protein Total Protein Albumin Folate PTH Intact Urine WBC (Auto) Urine Creatinine Urine Chloride Urine Total Protein Vancomycin Trough Crossmatch 05/23/18 05/24/18 05/24/18 21:14 04:43 08:04 WBC RBC Hgb Hct MCHC RDW Lymph % (Auto) [place] % (Auto) Lymph # [place] # Seg Neutrophils % Seg Neuts % (Manual) Lymphocytes % (Manual) Seg Neutrophils # Seg Neutrophils # Man Lymphocytes # (Manual) PT INR APTT POC ABG pH POC ABG pCO2 POC ABG pO2 Sodium 146 H Potassium Chloride 108.6 H Carbon Dioxide BUN 33 H Creatinine Glucose 109 H POC Glucose 110 H 106 H Lactic Acid Calcium 8.3 L Phosphorus Magnesium 2.50 H Iron TIBC AST ALT Alkaline Phosphatase Total Creatine Kinase C-Reactive Protein Total Protein Albumin Folate PTH Intact Urine WBC (Auto) Urine Creatinine Urine Chloride Urine Total Protein Vancomycin Trough Crossmatch 05/25/18 05/25/18 05/25/18 05:42 05:49 19:50 WBC RBC Hgb Hct MCHC RDW Lymph % (Auto) [place] % (Auto) Lymph # [place] # Seg Neutrophils % Seg Neuts % (Manual) Lymphocytes % (Manual) Seg Neutrophils # Seg Neutrophils # Man Lymphocytes # (Manual) PT INR APTT POC ABG pH POC ABG pCO2 POC ABG pO2 Sodium 150 H Potassium Chloride 112.5 H Carbon Dioxide BUN 34 H Creatinine Glucose 102 H POC Glucose 107 H Lactic Acid Calcium Phosphorus Magnesium Iron TIBC AST ALT Alkaline Phosphatase Total Creatine Kinase C-Reactive Protein 34.50 H Total Protein Albumin Folate PTH Intact Urine WBC (Auto) Urine Creatinine Urine Chloride Urine Total Protein Vancomycin Trough Crossmatch 05/25/18 05/25/18 05/25/18 19:50 21:05 22:46 WBC RBC Hgb Hct MCHC RDW Lymph % (Auto) [place] % (Auto) Lymph # [place] # Seg Neutrophils % Seg Neuts % (Manual) Lymphocytes % (Manual) Seg Neutrophils # Seg Neutrophils # Man Lymphocytes # (Manual) PT INR APTT POC ABG pH 7.483 H POC ABG pCO2 24.0 L POC ABG pO2 72 L Sodium Potassium Chloride Carbon Dioxide BUN Creatinine Glucose POC Glucose Lactic Acid 5.90 H* Calcium Phosphorus Magnesium Iron TIBC AST ALT Alkaline Phosphatase Total Creatine Kinase C-Reactive Protein Total Protein Albumin Folate PTH Intact Urine WBC (Auto) Urine Creatinine Urine Chloride Urine Total Protein Vancomycin Trough 25.1 H Crossmatch 05/25/18 05/26/18 05/26/18 22:46 00:21 00:51 WBC RBC Hgb Hct MCHC RDW Lymph % (Auto) [place] % (Auto) Lymph # [place] # Seg Neutrophils % Seg Neuts % (Manual) Lymphocytes % (Manual) Seg Neutrophils # Seg Neutrophils # Man Lymphocytes # (Manual) PT INR APTT POC ABG pH POC ABG pCO2 POC ABG pO2 Sodium Potassium Chloride Carbon Dioxide BUN Creatinine Glucose POC Glucose 133 H Lactic Acid 8.10 H* 6.20 H* Calcium Phosphorus Magnesium Iron TIBC AST ALT Alkaline Phosphatase Total Creatine Kinase C-Reactive Protein Total Protein Albumin Folate PTH Intact Urine WBC (Auto) Urine Creatinine Urine Chloride Urine Total Protein Vancomycin Trough Crossmatch 05/26/18 05/26/18 05/26/18 01:13 02:24 02:24 WBC 18.7 H RBC Hgb 11.6 L Hct MCHC RDW Lymph % (Auto) [place] % (Auto) Lymph # [place] # Seg Neutrophils % Seg Neuts % (Manual) Lymphocytes % (Manual) Seg Neutrophils # Seg Neutrophils # Man Lymphocytes # (Manual) PT INR APTT POC ABG pH POC ABG pCO2 POC ABG pO2 Sodium 147 H Potassium 6.2 H* D Chloride 111.9 H Carbon Dioxide 19 L BUN 80 H Creatinine 5.1 H D Glucose 112 H POC Glucose Lactic Acid 5.20 H* Calcium 6.7 L D Phosphorus Magnesium Iron TIBC AST ALT Alkaline Phosphatase Total Creatine Kinase C-Reactive Protein Total Protein Albumin Folate PTH Intact Urine WBC (Auto) Urine Creatinine Urine Chloride Urine Total Protein Vancomycin Trough Crossmatch 05/26/18 05/26/18 05/26/18 04:20 04:20 05:39 WBC RBC Hgb Hct MCHC RDW Lymph % (Auto) [place] % (Auto) Lymph # [place] # Seg Neutrophils % Seg Neuts % (Manual) Lymphocytes % (Manual) Seg Neutrophils # Seg Neutrophils # Man Lymphocytes # (Manual) PT INR APTT POC ABG pH POC ABG pCO2 POC ABG pO2 Sodium 150 H Potassium Chloride 110.0 H Carbon Dioxide 19 L BUN 66 H Creatinine Glucose 166 H POC Glucose 187 H Lactic Acid 5.10 H* Calcium 6.9 L Phosphorus 6.70 H D Magnesium Iron TIBC AST ALT Alkaline Phosphatase Total Creatine Kinase C-Reactive Protein Total Protein Albumin Folate PTH Intact Urine WBC (Auto) Urine Creatinine Urine Chloride Urine Total Protein Vancomycin Trough Crossmatch 05/26/18 05/26/18 05/26/18 06:02 07:29 11:00 WBC RBC Hgb Hct MCHC RDW Lymph % (Auto) [place] % (Auto) Lymph # [place] # Seg Neutrophils % Seg Neuts % (Manual) Lymphocytes % (Manual) Seg Neutrophils # Seg Neutrophils # Man Lymphocytes # (Manual) PT INR APTT POC ABG pH POC ABG pCO2 28.8 L POC ABG pO2 Sodium Potassium Chloride Carbon Dioxide BUN Creatinine Glucose POC Glucose Lactic Acid 4.80 H* 3.80 H* Calcium Phosphorus Magnesium Iron TIBC AST ALT Alkaline Phosphatase Total Creatine Kinase C-Reactive Protein Total Protein Albumin Folate PTH Intact Urine WBC (Auto) Urine Creatinine Urine Chloride Urine Total Protein Vancomycin Trough Crossmatch 05/26/18 05/26/18 05/26/18 11:01 12:28 18:00 WBC RBC Hgb Hct MCHC RDW Lymph % (Auto) [place] % (Auto) Lymph # [place] # Seg Neutrophils % Seg Neuts % (Manual) Lymphocytes % (Manual) Seg Neutrophils # Seg Neutrophils # Man Lymphocytes # (Manual) PT INR APTT POC ABG pH POC ABG pCO2 POC ABG pO2 Sodium 150 H 151 H Potassium 5.3 H D 6.1 H* Chloride 110.3 H 117.0 H Carbon Dioxide 21 L 20 L BUN 75 H 77 H Creatinine 4.3 H D 4.6 H Glucose 161 H POC Glucose 114 H Lactic Acid Calcium 7.5 L 6.7 L Phosphorus Magnesium Iron TIBC AST 1041 H ALT 406 H Alkaline Phosphatase 281 H Total Creatine Kinase C-Reactive Protein Total Protein 4.4 L Albumin 1.3 L Folate PTH Intact Urine WBC (Auto) Urine Creatinine Urine Chloride Urine Total Protein Vancomycin Trough Crossmatch 05/26/18 05/26/18 05/27/18 18:02 19:17 01:01 WBC 21.7 H RBC 2.70 L Hgb 7.8 L D Hct 24.6 L D MCHC RDW 15.3 H Lymph % (Auto) [place] % (Auto) Lymph # [place] # Seg Neutrophils % Seg Neuts % (Manual) 94.0 H Lymphocytes % (Manual) 3.0 L Seg Neutrophils # Seg Neutrophils # Man 20.4 H Lymphocytes # (Manual) 0.7 L PT INR APTT POC ABG pH 7.159 L 7.205 L POC ABG pCO2 54.5 H 53.0 H POC ABG pO2 252 H Sodium Potassium Chloride Carbon Dioxide BUN Creatinine Glucose POC Glucose Lactic Acid Calcium Phosphorus Magnesium Iron TIBC AST ALT Alkaline Phosphatase Total Creatine Kinase C-Reactive Protein Total Protein Albumin Folate PTH Intact Urine WBC (Auto) Urine Creatinine Urine Chloride Urine Total Protein Vancomycin Trough Crossmatch 05/27/18 05/27/18 05/27/18 05:15 05:15 06:11 WBC 24.9 H RBC 2.86 L Hgb 8.1 L Hct 25.9 L MCHC RDW 15.5 H Lymph % (Auto) [place] % (Auto) Lymph # [place] # Seg Neutrophils % Seg Neuts % (Manual) Lymphocytes % (Manual) Seg Neutrophils # Seg Neutrophils # Man Lymphocytes # (Manual) PT INR APTT POC ABG pH 7.265 L POC ABG pCO2 46.2 H POC ABG pO2 111 H Sodium 149 H Potassium 6.9 H* Chloride 113.5 H Carbon Dioxide BUN 89 H Creatinine 5.2 H Glucose 118 H POC Glucose Lactic Acid Calcium 7.0 L Phosphorus 9.70 H D Magnesium Iron TIBC AST 876 H ALT 408 H Alkaline Phosphatase Total Creatine Kinase C-Reactive Protein Total Protein 5.2 L Albumin 1.5 L Folate PTH Intact Urine WBC (Auto) Urine Creatinine Urine Chloride Urine Total Protein Vancomycin Trough Crossmatch 05/27/18 05/27/18 05/27/18 08:48 10:22 10:22 WBC RBC Hgb Hct MCHC RDW Lymph % (Auto) [place] % (Auto) Lymph # [place] # Seg Neutrophils % Seg Neuts % (Manual) Lymphocytes % (Manual) Seg Neutrophils # Seg Neutrophils # Man Lymphocytes # (Manual) PT INR APTT POC ABG pH POC ABG pCO2 POC ABG pO2 Sodium 146 H Potassium 6.1 H* Chloride 108.2 H Carbon Dioxide 21 L BUN 88 H Creatinine 5.6 H Glucose 163 H POC Glucose 164 H Lactic Acid Calcium 6.7 L Phosphorus Magnesium Iron TIBC AST ALT Alkaline Phosphatase Total Creatine Kinase C-Reactive Protein 40.70 H Total Protein Albumin Folate PTH Intact Urine WBC (Auto) Urine Creatinine Urine Chloride Urine Total Protein Vancomycin Trough Crossmatch 05/27/18 05/27/18 05/27/18 17:39 23:27 Unknown WBC RBC Hgb Hct MCHC RDW Lymph % (Auto) [place] % (Auto) Lymph # [place] # Seg Neutrophils % Seg Neuts % (Manual) Lymphocytes % (Manual) Seg Neutrophils # Seg Neutrophils # Man Lymphocytes # (Manual) PT INR APTT POC ABG pH POC ABG pCO2 POC ABG pO2 Sodium Potassium Chloride Carbon Dioxide BUN Creatinine Glucose POC Glucose 59 L 132 H Lactic Acid Calcium Phosphorus Magnesium Iron TIBC AST ALT Alkaline Phosphatase Total Creatine Kinase C-Reactive Protein Total Protein Albumin Folate PTH Intact Urine WBC (Auto) 120.0 H Urine Creatinine Urine Chloride Urine Total Protein Vancomycin Trough Crossmatch 05/28/18 05/28/18 05/28/18 04:32 05:00 05:00 WBC 26.5 H RBC 2.69 L Hgb 7.7 L Hct 23.6 L MCHC RDW Lymph % (Auto) [place] % (Auto) Lymph # [place] # Seg Neutrophils % Seg Neuts % (Manual) 96.0 H Lymphocytes % (Manual) 0 L Seg Neutrophils # Seg Neutrophils # Man 25.4 H Lymphocytes # (Manual) 0.0 L PT INR APTT POC ABG pH POC ABG pCO2 POC ABG pO2 134 H Sodium Potassium Chloride Carbon Dioxide BUN 69 H Creatinine 4.4 H Glucose 118 H POC Glucose Lactic Acid Calcium 8.0 L D Phosphorus 6.80 H D Magnesium Iron TIBC AST ALT Alkaline Phosphatase Total Creatine Kinase C-Reactive Protein Total Protein Albumin Folate PTH Intact Urine WBC (Auto) Urine Creatinine Urine Chloride Urine Total Protein Vancomycin Trough Crossmatch 05/28/18 05/28/18 05/28/18 05:27 13:04 17:56 WBC RBC Hgb Hct MCHC RDW Lymph % (Auto) [place] % (Auto) Lymph # [place] # Seg Neutrophils % Seg Neuts % (Manual) Lymphocytes % (Manual) Seg Neutrophils # Seg Neutrophils # Man Lymphocytes # (Manual) PT INR APTT POC ABG pH POC ABG pCO2 POC ABG pO2 Sodium Potassium Chloride Carbon Dioxide BUN Creatinine Glucose POC Glucose 128 H 155 H 110 H Lactic Acid Calcium Phosphorus Magnesium Iron TIBC AST ALT Alkaline Phosphatase Total Creatine Kinase C-Reactive Protein Total Protein Albumin Folate PTH Intact Urine WBC (Auto) Urine Creatinine Urine Chloride Urine Total Protein Vancomycin Trough Crossmatch 05/29/18 05/29/18 05/29/18 03:35 04:00 11:51 WBC RBC Hgb Hct MCHC RDW Lymph % (Auto) [place] % (Auto) Lymph # [place] # Seg Neutrophils % Seg Neuts % (Manual) Lymphocytes % (Manual) Seg Neutrophils # Seg Neutrophils # Man Lymphocytes # (Manual) PT INR APTT POC ABG pH 7.471 H POC ABG pCO2 POC ABG pO2 78 L Sodium Potassium Chloride Carbon Dioxide BUN 50 H Creatinine 3.9 H Glucose POC Glucose 131 H Lactic Acid Calcium 7.7 L Phosphorus Magnesium 1.50 L Iron TIBC AST 218 H ALT 204 H Alkaline Phosphatase Total Creatine Kinase C-Reactive Protein Total Protein 5.4 L Albumin 1.6 L Folate PTH Intact Urine WBC (Auto) Urine Creatinine Urine Chloride Urine Total Protein Vancomycin Trough Crossmatch 05/29/18 05/30/18 05/30/18 23:56 04:54 05:07 WBC RBC Hgb Hct MCHC RDW Lymph % (Auto) [place] % (Auto) Lymph # [place] # Seg Neutrophils % Seg Neuts % (Manual) Lymphocytes % (Manual) Seg Neutrophils # Seg Neutrophils # Man Lymphocytes # (Manual) PT INR APTT POC ABG pH POC ABG pCO2 34.5 L POC ABG pO2 133 H Sodium Potassium Chloride Carbon Dioxide BUN Creatinine Glucose POC Glucose 119 H 115 H Lactic Acid Calcium Phosphorus Magnesium Iron TIBC AST ALT Alkaline Phosphatase Total Creatine Kinase C-Reactive Protein Total Protein Albumin Folate PTH Intact Urine WBC (Auto) Urine Creatinine Urine Chloride Urine Total Protein Vancomycin Trough Crossmatch 05/30/18 05/30/18 05/30/18 05:15 05:15 12:13 WBC 16.2 H RBC 2.53 L Hgb 7.4 L Hct 21.9 L MCHC RDW Lymph % (Auto) [place] % (Auto) Lymph # [place] # Seg Neutrophils % Seg Neuts % (Manual) Lymphocytes % (Manual) Seg Neutrophils # Seg Neutrophils # Man Lymphocytes # (Manual) PT INR APTT POC ABG pH POC ABG pCO2 POC ABG pO2 Sodium 135 L Potassium Chloride 97.5 L Carbon Dioxide BUN 69 H Creatinine 5.4 H Glucose 105 H POC Glucose 132 H Lactic Acid Calcium 7.5 L Phosphorus 5.30 H D Magnesium Iron TIBC AST ALT Alkaline Phosphatase Total Creatine Kinase C-Reactive Protein Total Protein Albumin Folate PTH Intact Urine WBC (Auto) Urine Creatinine Urine Chloride Urine Total Protein Vancomycin Trough Crossmatch 05/30/18 05/31/18 05/31/18 17:10 04:50 04:50 WBC 18.7 H RBC 2.86 L Hgb 8.2 L Hct 24.8 L MCHC RDW Lymph % (Auto) [place] % (Auto) Lymph # [place] # Seg Neutrophils % Seg Neuts % (Manual) 91.0 H Lymphocytes % (Manual) 2.0 L Seg Neutrophils # Seg Neutrophils # Man 17.0 H Lymphocytes # (Manual) 0.4 L PT INR APTT POC ABG pH POC ABG pCO2 POC ABG pO2 Sodium 132 L Potassium Chloride 92.4 L Carbon Dioxide BUN 77 H Creatinine 5.9 H Glucose POC Glucose 122 H Lactic Acid Calcium 7.3 L Phosphorus 6.40 H D Magnesium Iron TIBC AST ALT Alkaline Phosphatase Total Creatine Kinase C-Reactive Protein Total Protein Albumin Folate PTH Intact Urine WBC (Auto) Urine Creatinine Urine Chloride Urine Total Protein Vancomycin Trough Crossmatch 05/31/18 05:45 WBC RBC Hgb Hct MCHC RDW Lymph % (Auto) [place] % (Auto) Lymph # [place] # Seg Neutrophils % Seg Neuts % (Manual) Lymphocytes % (Manual) Seg Neutrophils # Seg Neutrophils # Man Lymphocytes # (Manual) PT INR APTT POC ABG pH POC ABG pCO2 POC ABG pO2 Sodium Potassium Chloride Carbon Dioxide BUN Creatinine Glucose POC Glucose 111 H Lactic Acid Calcium Phosphorus Magnesium Iron TIBC AST ALT Alkaline Phosphatase Total Creatine Kinase C-Reactive Protein Total Protein Albumin Folate PTH Intact Urine WBC (Auto) Urine Creatinine Urine Chloride Urine Total Protein Vancomycin Trough Crossmatch Allied health notes reviewed: RT (weaning parameters)
[2018-05-31] MEDS ORDERED: PROCRIT SUB-Q ONE (10:00)
--- NOTE | 2018-05-31 12:57 | Progress Note ---
Assessment and Plan Assessment and plan: 1. Acute hypoxemic respiratory failure 2. Bilateral pneumonia (possibly due to aspiration) 2. Sepsis syndrome. 3. Acute kidney injury secondary to obstructive uropathy (possible contrast nephropathy element now) 4. Pelvic mass (primary unknow 5. Bowel obstruction secondary to extrinsic compression. Acute deep venous thrombosis. Hypertensive urgency. Hyperkalemia, now resolved. Moderate to severe protein calorie malnutrition Hypernatremia. Hypochloremia. Anemia, normocytic. (ABLA) History Interval history: Pt is supine in bed with eyes closed, intubated and sedated, no acute distress. Hospitalist Physical - Constitutional Vitals: Temp Pulse Resp BP Pulse Ox 98.8 F 104 H 21 158/99 100 05/31/18 12:00 05/31/18 12:44 05/31/18 12:30 05/31/18 12:44 05/31/18 12:30 General appearance: Present: mild distress, cachectic Results - Labs CBC & Chem 7: 05/31/18 04:50 05/31/18 04:50 Labs: Laboratory Last Values WBC 18.7 K/mm3 (4.5-11.0) H 05/31/18 04:50 RBC 2.86 M/mm3 (3.65-5.03) L 05/31/18 04:50 Hgb 8.2 gm/dl (11.8-15.2) L 05/31/18 04:50 Hct 24.8 % (35.5-45.6) L 05/31/18 04:50 MCV 87 fl (84-94) 05/31/18 04:50 MCH 29 pg (28-32) 05/31/18 04:50 MCHC 33 % (32-34) 05/31/18 04:50 RDW 14.9 % (13.2-15.2) 05/31/18 04:50 Plt Count 392 K/mm3 (140-440) 05/31/18 04:50 Lymph % (Auto) English Language Learner Teacher 05/28/18 05:00 [place] % (Auto) English Language Learner Teacher 05/28/18 05:00 Eos % (Auto) English Language Learner Teacher 05/28/18 05:00 Baso % (Auto) English Language Learner Teacher 05/28/18 05:00 Lymph # English Language Learner Teacher 05/28/18 05:00 [place] # English Language Learner Teacher 05/28/18 05:00 Eos # English Language Learner Teacher 05/28/18 05:00 Baso # English Language Learner Teacher 05/28/18 05:00 Add Manual Diff Complete 05/31/18 04:50 Total Counted 100 05/31/18 04:50 Seg Neutrophils % English Language Learner Teacher 05/28/18 05:00 Seg Neuts % (Manual) 91.0 % (40.0-70.0) H 05/31/18 04:50 Band Neutrophils % 2.0 % 05/31/18 04:50 Lymphocytes % (Manual) 2.0 % (13.4-35.0) L 05/31/18 04:50 Reactive Lymphs % (Man) 0 % 05/31/18 04:50 Monocytes % (Manual) 2.0 % (0.0-7.3) 05/31/18 04:50 Eosinophils % (Manual) 1.0 % (0.0-4.3) 05/31/18 04:50 Basophils % (Manual) 0 % (0.0-1.8) 05/31/18 04:50 Metamyelocytes % 1.0 % 05/31/18 04:50 Myelocytes % 1.0 % 05/31/18 04:50 Promyelocytes % 0 % 05/31/18 04:50 Blast Cells % 0 % 05/31/18 04:50 Nucleated RBC % Not Reportable 05/31/18 04:50 Seg Neutrophils # English Language Learner Teacher 05/28/18 05:00 Seg Neutrophils # Man 17.0 K/mm3 (1.8-7.7) H 05/31/18 04:50 Band Neutrophils # 0.4 K/mm3 05/31/18 04:50 Lymphocytes # (Manual) 0.4 K/mm3 (1.2-5.4) L 05/31/18 04:50 Abs React Lymphs (Man) 0.0 K/mm3 05/31/18 04:50 Monocytes # (Manual) 0.4 K/mm3 (0.0-0.8) 05/31/18 04:50 Eosinophils # (Manual) 0.2 K/mm3 (0.0-0.4) 05/31/18 04:50 Basophils # (Manual) 0.0 K/mm3 (0.0-0.1) 05/31/18 04:50 Metamyelocytes # 0.2 K/mm3 05/31/18 04:50 Myelocytes # 0.2 K/mm3 05/31/18 04:50 Promyelocytes # 0.0 K/mm3 05/31/18 04:50 Blast Cells # 0.0 K/mm3 05/31/18 04:50 WBC Morphology Not Reportable 05/31/18 04:50 Hypersegmented Neuts Not Reportable 05/31/18 04:50 Hyposegmented Neuts Not Reportable 05/31/18 04:50 Hypogranular Neuts Not Reportable 05/31/18 04:50 Smudge Cells Not Reportable 05/31/18 04:50 Toxic Granulation Not Reportable 05/31/18 04:50 Toxic Vacuolation Not Reportable 05/31/18 04:50 Dohle Bodies Not Reportable 05/31/18 04:50 Pelger-Huet Anomaly Not Reportable 05/31/18 04:50 Mahesh Rods Not Reportable 05/31/18 04:50 Platelet Estimate Appears normal 05/31/18 04:50 Clumped Platelets Not Reportable 05/31/18 04:50 Plt Clumps, EDTA Not Reportable 05/31/18 04:50 Large Platelets Not Reportable 05/31/18 04:50 Giant Platelets Not Reportable 05/31/18 04:50 Platelet Satelliting Not Reportable 05/31/18 04:50 Plt Morphology Comment Not Reportable 05/31/18 04:50 RBC Morphology Not Reportable 05/31/18 04:50 Dimorphic RBCs Not Reportable 05/31/18 04:50 Polychromasia Not Reportable 05/31/18 04:50 Hypochromasia Few 05/31/18 04:50 Poikilocytosis Not Reportable 05/31/18 04:50 Anisocytosis 1+ 05/31/18 04:50 Microcytosis Few 05/31/18 04:50 Macrocytosis Not Reportable 05/31/18 04:50 Spherocytes Not Reportable 05/31/18 04:50 Pappenheimer Bodies Not Reportable 05/31/18 04:50 Sickle Cells Not Reportable 05/31/18 04:50 Target Cells Rare 05/31/18 04:50 Tear Drop Cells Not Reportable 05/31/18 04:50 Ovalocytes 1+ 05/31/18 04:50 Helmet Cells Not Reportable 05/31/18 04:50 [place] Bodies Not Reportable 05/31/18 04:50 [place] Rings Not Reportable 05/31/18 04:50 Nory Cells Not Reportable 05/31/18 04:50 Bite Cells Not Reportable 05/31/18 04:50 Crenated Cell Not Reportable 05/31/18 04:50 Elliptocytes Not Reportable 05/31/18 04:50 Acanthocytes (Spur) Not Reportable 05/31/18 04:50 Rouleaux Not Reportable 05/31/18 04:50 Hemoglobin C Crystals Not Reportable 05/31/18 04:50 Schistocytes Not Reportable 05/31/18 04:50 Malaria parasites Not Reportable 05/31/18 04:50 Mk Bodies Not Reportable 05/31/18 04:50 Hem Pathologist Commnt No 05/31/18 04:50 PT 18.3 Sec. (12.2-14.9) H 05/23/18 09:03 INR 1.43 (0.87-1.13) H 05/23/18 09:03 APTT 40.0 Sec. (24.2-36.6) H 05/23/18 09:03 POC ABG pH 7.362 (7.35-7.45) 05/31/18 09:58 POC ABG pCO2 36.4 (35-45) 05/31/18 09:58 POC ABG pO2 101 (80-105) 05/31/18 09:58 POC ABG HCO3 20.7 05/31/18 09:58 POC ABG Total CO2 22 05/31/18 09:58 POC ABG O2 Sat 98 05/31/18 09:58 POC ABG Base Excess -5 05/31/18 09:58 FiO2 40 % 05/31/18 09:58 Sodium 132 mmol/L (137-145) L 05/31/18 04:50 Potassium 3.9 mmol/L (3.6-5.0) 05/31/18 04:50 Chloride 92.4 mmol/L (98-107) L 05/31/18 04:50 Carbon Dioxide 22 mmol/L (22-30) 05/31/18 04:50 Anion Gap 22 mmol/L 05/31/18 04:50 BUN 77 mg/dL (9-20) H 05/31/18 04:50 Creatinine 5.9 mg/dL (0.8-1.5) H 05/31/18 04:50 Estimated GFR 12 ml/min 05/31/18 04:50 BUN/Creatinine Ratio 13 % 05/31/18 04:50 Glucose 99 mg/dL (75-100) 05/31/18 04:50 POC Glucose 136 (70-105) H 05/31/18 11:37 Hemoglobin A1c 5.7 % (4-6) 05/14/18 05:05 Lactic Acid 3.80 mmol/L (0.7-2.0) H* 05/26/18 11:00 Calcium 7.3 mg/dL (8.4-10.2) L 05/31/18 04:50 Phosphorus 6.40 mg/dL (2.5-4.5) H D 05/31/18 04:50 Magnesium 2.10 mg/dL (1.7-2.3) 05/31/18 04:50 Iron 24 ug/dL (49-181) L 05/16/18 07:02 TIBC 160 mcg/dL (250-450) L 05/16/18 07:02 Ferritin 325.8 ng/mL (13.0-400.0) 05/16/18 07:02 Total Bilirubin 1.00 mg/dL (0.1-1.2) 05/29/18 04:00 AST 218 units/L (5-40) H 05/29/18 04:00 ALT 204 units/L (7-56) H 05/29/18 04:00 Alkaline Phosphatase 91 units/L (35-129) 05/29/18 04:00 Total Creatine Kinase 156 units/L (55-170) 05/25/18 22:46 CK-MB (CK-2) 2.3 ng/mL (0.0-4.0) 05/25/18 22:46 CK-MB (CK-2) Rel Index 1.4 (0-4) 05/25/18 22:46 C-Reactive Protein 40.70 mg/dL (0.00-1.30) H 05/27/18 10:22 Total Protein 5.4 g/dL (6.3-8.2) L 05/29/18 04:00 Albumin 1.6 g/dL (3.9-5) L 05/29/18 04:00 Albumin/Globulin Ratio 0.4 % 05/29/18 04:00 Prostate Specific Ag 0.96 ng/mL (0.00-4.00) 05/14/18 13:29 Vitamin B12 359.2 pg/mL (211-911) 05/16/18 07:02 Folate 5.39 ng/mL (7.3-26.0) L 05/16/18 07:02 TSH 3.180 mlU/mL (0.270-4.200) 05/14/18 05:05 PTH Intact 65.37 pg/mL (15-65) H 05/14/18 05:05 Urine Color [place] (Yellow) 05/27/18 Unknown Urine Turbidity Cloudy (Clear) 05/27/18 Unknown Urine pH 5.0 (5.0-7.0) 05/27/18 Unknown Ur Specific [place] 1.026 (1.003-1.030) 05/27/18 Unknown Urine Protein 100 mg/dl mg/dL (Negative) 05/27/18 Unknown Urine Glucose (UA) 50 mg/dL (Negative) 05/27/18 Unknown Urine Ketones Neg mg/dL (Negative) 05/27/18 Unknown Urine Blood Lg (Negative) 05/27/18 Unknown Urine Nitrite Neg (Negative) 05/27/18 Unknown Urine Bilirubin Neg (Negative) 05/27/18 Unknown Urine Urobilinogen < 2.0 mg/dL (<2.0) 05/27/18 Unknown Ur Leukocyte Esterase Mod (Negative) 05/27/18 Unknown Urine WBC (Auto) 120.0 /HPF (0.0-6.0) H 05/27/18 Unknown Urine RBC (Auto) 35.0 /HPF (0.0-6.0) 05/27/18 Unknown U Epithel Cells (Auto) 3.0 /HPF (0-13.0) 05/27/18 Unknown Urine Bacteria (Auto) 1+ /HPF (Negative) 05/27/18 Unknown Urine WBC Clumps Few /HPF 05/13/18 19:39 Urine Mucus Few /HPF 05/27/18 Unknown Urine Yeast (Bud[place]) 2+ /HPF 05/21/18 15:30 Urine Creatinine 66.0 mg/dL (0.1-20.0) H 05/13/18 19:39 Urine Sodium 60 mmol/L 05/13/18 19:39 Urine Potassium 8.69 mmol/L 05/13/18 19:39 Urine Chloride 27.8 mmolL (110-250) L 05/13/18 19:39 Urine Total Protein 24 mg/dL (5-11.8) H 05/13/18 19:39 Vancomycin Trough 25.1 ug/mL (5.0-20.0) H 05/25/18 22:46 Random Vancomycin 34.3 ug/mL (0-40.0) 05/26/18 11:01 Urine Opiates Screen Presumptive negative 05/13/18 19:39 Urine Methadone Screen Presumptive negative 05/13/18 19:39 Ur Barbiturates Screen Presumptive negative 05/13/18 19:39 Ur Phencyclidine Scrn Presumptive negative 05/13/18 19:39 Ur Amphetamines Screen Presumptive negative 05/13/18 19:39 U Benzodiazepines Scrn Presumptive negative 05/13/18 19:39 Urine Cocaine Screen Presumptive negative 05/13/18 19:39 U Marijuana (THC) Screen Presumptive negative 05/13/18 19:39 Drugs of Abuse Note Disclamer 05/13/18 19:39 ZEUS Screen Negative (Negative) 05/14/18 05:05 Proteinase 3 (PR3) Ab <1.0 AI (<1.0) 05/14/18 05:05 Myeloperoxidase Ab <1.0 AI (<1.0) 05/14/18 05:05 Complement C3 147 mg/dL (82-185) 05/14/18 05:05 Complement C4 45 mg/dL (15-53) 05/14/18 05:05 Hepatitis A IgM Ab Nonreactive (NonReactive) 05/27/18 13:41 Hep Bs Antigen Non-reactive (Negative) 05/27/18 13:41 Hep B Core IgM Ab Non-reactive (NonReactive) 05/27/18 13:41 Hepatitis C Antibody Non-reactive (NonReactive) 05/27/18 13:41 Blood Type O POSITIVE 05/22/18 11:23 Antibody Screen Negative 05/22/18 11:23 Crossmatch See Detail 05/22/18 11:23
--- NOTE | 2018-05-31 13:11 | Progress Note ---
Assessment and Plan POD # 5 Pt awake, alert. appears comfortable. currently being dialysed. Possibly to attempt extubation today. Davol 60 cc drainage last 24 hrs Abd 2+ distended. ostomy pink. dressings dry surgically status quo. will proceed with f/u CT abd & pelvis with PO contrast and methylene blue in around 3-4 days to see if any source of GI drainage noted critical Selected Entries 05/31/18 05/31/18 12:00 12:15 Temperature 98.8 F Respiratory 17 Rate Blood Pressure 136/83 Laboratory Tests 05/30/18 05/31/18 05/31/18 05:15 04:50 04:50 WBC 16.2 H 18.7 H Hgb 7.4 L 8.2 L Hct 21.9 L 24.8 L POC ABG pH POC ABG pCO2 POC ABG pO2 POC ABG HCO3 POC ABG Total CO2 Sodium 132 L Potassium 3.9 Chloride 92.4 L Carbon Dioxide 22 BUN 77 H Creatinine 5.9 H 05/31/18 09:58 WBC Hgb Hct POC ABG pH 7.362 POC ABG pCO2 36.4 POC ABG pO2 101 POC ABG HCO3 20.7 POC ABG Total CO2 22 Sodium Potassium Chloride Carbon Dioxide BUN Creatinine Objective Vital Signs - 12hr 05/31/18 05/31/18 05/31/18 01:15 01:19 01:30 Temperature 98.8 F Pulse Rate 112 H 106 H Pulse Rate [ From Monitor] Respiratory 31 H 22 Rate Blood Pressure 122/80 119/73 O2 Sat by Pulse 93 96 Oximetry O2 Sat by Pulse Oximetry [ Bilateral Throughout] 05/31/18 05/31/18 05/31/18 01:45 02:00 02:15 Temperature Pulse Rate 112 H 108 H 108 H Pulse Rate [ From Monitor] Respiratory 24 22 20 Rate Blood Pressure 122/80 120/77 119/73 O2 Sat by Pulse 100 99 100 Oximetry O2 Sat by Pulse Oximetry [ Bilateral Throughout] 05/31/18 05/31/18 05/31/18 02:30 02:45 03:00 Temperature Pulse Rate 108 H 110 H 105 H Pulse Rate [ From Monitor] Respiratory 21 25 H 21 Rate Blood Pressure 123/78 123/78 126/79 O2 Sat by Pulse 99 100 97 Oximetry O2 Sat by Pulse Oximetry [ Bilateral Throughout] 05/31/18 05/31/18 05/31/18 03:15 03:30 03:45 Temperature Pulse Rate 106 H 115 H 106 H Pulse Rate [ From Monitor] Respiratory 18 23 21 Rate Blood Pressure 126/79 132/84 126/79 O2 Sat by Pulse 100 99 100 Oximetry O2 Sat by Pulse Oximetry [ Bilateral Throughout] 05/31/18 05/31/18 05/31/18 04:00 04:15 04:31 Temperature 99.6 F Pulse Rate 110 H 109 H 83 Pulse Rate [ 114 H From Monitor] Respiratory 24 24 13 Rate Blood Pressure 125/78 132/84 132/84 O2 Sat by Pulse 100 99 86 Oximetry O2 Sat by Pulse Oximetry [ Bilateral Throughout] 05/31/18 05/31/18 05/31/18 04:45 05:00 05:15 Temperature Pulse Rate 120 H 115 H 112 H Pulse Rate [ From Monitor] Respiratory 29 H 21 18 Rate Blood Pressure 187/103 143/90 143/90 O2 Sat by Pulse 94 97 96 Oximetry O2 Sat by Pulse Oximetry [ Bilateral Throughout] 05/31/18 05/31/18 05/31/18 05:30 05:45 06:00 Temperature Pulse Rate 113 H 107 H 104 H Pulse Rate [ From Monitor] Respiratory 21 20 21 Rate Blood Pressure 120/73 140/89 116/76 O2 Sat by Pulse 97 97 Oximetry O2 Sat by Pulse Oximetry [ Bilateral Throughout] 05/31/18 05/31/18 05/31/18 06:15 06:30 06:45 Temperature Pulse Rate 100 H 102 H 102 H Pulse Rate [ From Monitor] Respiratory 16 19 18 Rate Blood Pressure 116/76 118/73 118/73 O2 Sat by Pulse 98 97 99 Oximetry O2 Sat by Pulse Oximetry [ Bilateral Throughout] 05/31/18 05/31/18 05/31/18 07:00 07:15 07:30 Temperature Pulse Rate 110 H 101 H 104 H Pulse Rate [ From Monitor] Respiratory 23 16 21 Rate Blood Pressure 118/75 118/75 116/73 O2 Sat by Pulse 99 100 98 Oximetry O2 Sat by Pulse Oximetry [ Bilateral Throughout] 05/31/18 05/31/18 05/31/18 07:45 08:00 08:15 Temperature 98.9 F Pulse Rate 102 H 106 H 101 H Pulse Rate [ From Monitor] Respiratory 19 20 16 Rate Blood Pressure 116/73 119/73 119/73 O2 Sat by Pulse 99 97 100 Oximetry O2 Sat by Pulse Oximetry [ Bilateral Throughout] 05/31/18 05/31/18 05/31/18 08:30 08:45 09:00 Temperature Pulse Rate 101 H 103 H 97 H Pulse Rate [ From Monitor] Respiratory 20 24 18 Rate Blood Pressure 117/73 117/73 116/70 O2 Sat by Pulse 96 100 97 Oximetry O2 Sat by Pulse Oximetry [ Bilateral Throughout] 05/31/18 05/31/18 05/31/18 09:10 09:15 09:30 Temperature Pulse Rate 101 H 104 H 94 H Pulse Rate [ From Monitor] Respiratory 22 20 Rate Blood Pressure 116/70 116/70 109/70 O2 Sat by Pulse 100 97 Oximetry O2 Sat by Pulse Oximetry [ Bilateral Throughout] 05/31/18 05/31/18 05/31/18 09:38 09:45 09:58 Temperature 98.9 F Pulse Rate 96 H 101 H 106 H Pulse Rate [ From Monitor] Respiratory 22 25 H 27 H Rate Blood Pressure 109/70 109/70 109/70 O2 Sat by Pulse 100 100 100 Oximetry O2 Sat by Pulse 100 Oximetry [ Bilateral Throughout] 05/31/18 05/31/18 05/31/18 10:00 10:01 10:15 Temperature Pulse Rate 100 H 106 H 96 H Pulse Rate [ From Monitor] Respiratory 27 H 24 Rate Blood Pressure 123/78 125/85 113/73 O2 Sat by Pulse 97 99 Oximetry O2 Sat by Pulse Oximetry [ Bilateral Throughout] 05/31/18 05/31/18 05/31/18 10:30 10:36 10:45 Temperature Pulse Rate 91 H 95 H 97 H Pulse Rate [ From Monitor] Respiratory 20 24 Rate Blood Pressure 116/74 116/74 119/78 O2 Sat by Pulse 97 99 Oximetry O2 Sat by Pulse Oximetry [ Bilateral Throughout] 05/31/18 05/31/18 05/31/18 11:00 11:15 11:30 Temperature Pulse Rate 94 H 98 H 90 Pulse Rate [ From Monitor] Respiratory 21 22 20 Rate Blood Pressure 128/82 131/82 134/81 O2 Sat by Pulse 100 100 100 Oximetry O2 Sat by Pulse Oximetry [ Bilateral Throughout] 05/31/18 05/31/18 05/31/18 11:45 12:00 12:10 Temperature 98.8 F Pulse Rate 98 H 103 H Pulse Rate [ From Monitor] Respiratory 22 21 Rate Blood Pressure 134/81 118/75 O2 Sat by Pulse 100 100 100 Oximetry O2 Sat by Pulse Oximetry [ Bilateral Throughout] 05/31/18 05/31/18 05/31/18 12:15 12:16 12:30 Temperature Pulse Rate 90 99 H 98 H Pulse Rate [ From Monitor] Respiratory 17 23 21 Rate Blood Pressure 136/83 136/83 142/89 O2 Sat by Pulse 100 100 100 Oximetry O2 Sat by Pulse Oximetry [ Bilateral Throughout] 05/31/18 05/31/18 12:44 13:00 Temperature Pulse Rate 104 H 103 H Pulse Rate [ From Monitor] Respiratory Rate Blood Pressure 158/99 139/91 O2 Sat by Pulse Oximetry O2 Sat by Pulse Oximetry [ Bilateral Throughout] - Labs 05/31/18 04:50 05/31/18 04:50 Diabetes panel 05/31/18 Range/Units 04:50 Sodium 132 L (137-145) mmol/L Potassium 3.9 (3.6-5.0) mmol/L Chloride 92.4 L (98-107) mmol/L Carbon Dioxide 22 (22-30) mmol/L BUN 77 H (9-20) mg/dL Creatinine 5.9 H (0.8-1.5) mg/dL Glucose 99 (75-100) mg/dL Calcium 7.3 L (8.4-10.2) mg/dL Calcium panel 05/31/18 Range/Units 04:50 Calcium 7.3 L (8.4-10.2) mg/dL Phosphorus 6.40 H D (2.5-4.5) mg/dL Pituitary panel 05/31/18 Range/Units 04:50 Sodium 132 L (137-145) mmol/L Potassium 3.9 (3.6-5.0) mmol/L Chloride 92.4 L (98-107) mmol/L Carbon Dioxide 22 (22-30) mmol/L BUN 77 H (9-20) mg/dL Creatinine 5.9 H (0.8-1.5) mg/dL Glucose 99 (75-100) mg/dL Calcium 7.3 L (8.4-10.2) mg/dL Adrenal panel 05/31/18 Range/Units 04:50 Sodium 132 L (137-145) mmol/L Potassium 3.9 (3.6-5.0) mmol/L Chloride 92.4 L (98-107) mmol/L Carbon Dioxide 22 (22-30) mmol/L BUN 77 H (9-20) mg/dL Creatinine 5.9 H (0.8-1.5) mg/dL Glucose 99 (75-100) mg/dL Calcium 7.3 L (8.4-10.2) mg/dL
--- NOTE | 2018-05-31 14:01 | Progress Note ---
Assessment and Plan Assessment: 1) Sepsis: still fever, leukocytosis is better. Etiology unclear - most likely necrotic malignancy ? abscess +/- UTI +/- LLL pneumonia -Blood cx 05/15 neg, 05/20 neg, 05/26 neg -CRP=40 2) Complicated UTI: repeat UA 05/21 28 wbc, trace LE. 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 Enlarged pelvic lymph nodes, bilateral hydronephrosis. -S/p 05/14/18 left and right nephrostomy tube placements and mass biopsy -S/p 05/18/2018 cystoscopy with right great toe pyelogram found to have a bladder mass and prostate mass -S/p 05/26/18 diverting colostomy. Intrabdominal cx + Bacteroides fragilis 4) LLL pneumonia, sputum cx + Yeast 5) MARYLOU 6) Weight loss Plan: -follow-up procalcitonin -continue cefepime, flagyl D5 -stop zyvox D5 -remove avila since he has amy percut nephrostomy tubes and on HD -remove femoral HD access -monitor fever -agree with repeat CT abd w methylene blue to r/o leak Discussed with Dr Keita Thank you for your consultation, will follow up with you. Sugey Garcia MD Infectious Diseases Specialist [facility] ([facility]) M [phone] O [phone] Subjective Date of service: 05/31/18 Principal diagnosis: squamous cell ca - prostate bx - prelim report Interval history: More alert communicating on the vent on CPAP. No fever x 48h Microbiology: Blood cultures: 05/15 neg 05/20 neg 05/26 ngtd Urine cultures: 05/21 neg 05/27 neg Sputum: 05/27 yeast OR cultures: 05/26 Bacteroides fragilis Current Antimicrobials: 05/27 cefepime, flagyl and zyvox Previous Antimicrobials: Zosyn 05/19 Levaquin 05/26 Objective - Constitutional Vitals: Vital Signs Temp Pulse Resp BP Pulse Ox 98.8 F 99 H 22 138/86 100 05/31/18 13:22 05/31/18 13:22 05/31/18 13:22 05/31/18 13:22 05/31/18 13:22 Temperature -Last 24 Hours Temperature 98.8 F Temperature 98.8 F Temperature 98.9 F Temperature 98.9 F Temperature 99.6 F Temperature 98.8 F Temperature 98.8 F Temperature 98.0 F Temperature 98.0 F Temperature 98.0 F - Labs CBC & Chem 7: 05/31/18 04:50 05/31/18 04:50 Labs: Abnormal lab results 05/30/18 05/30/18 05/31/18 Range/Units 12:13 17:10 04:50 WBC 18.7 H (4.5-11.0) K/mm3 RBC 2.86 L (3.65-5.03) M/mm3 Hgb 8.2 L (11.8-15.2) gm/dl Hct 24.8 L (35.5-45.6) % Seg Neuts % (Manual) 91.0 H (40.0-70.0) % Lymphocytes % (Manual) 2.0 L (13.4-35.0) % Seg Neutrophils # Man 17.0 H (1.8-7.7) K/mm3 Lymphocytes # (Manual) 0.4 L (1.2-5.4) K/mm3 Sodium (137-145) mmol/L Chloride (98-107) mmol/L BUN (9-20) mg/dL Creatinine (0.8-1.5) mg/dL POC Glucose 132 H 122 H (70-105) Calcium (8.4-10.2) mg/dL Phosphorus (2.5-4.5) mg/dL 05/31/18 05/31/18 05/31/18 Range/Units 04:50 05:45 11:37 WBC (4.5-11.0) K/mm3 RBC (3.65-5.03) M/mm3 Hgb (11.8-15.2) gm/dl Hct (35.5-45.6) % Seg Neuts % (Manual) (40.0-70.0) % Lymphocytes % (Manual) (13.4-35.0) % Seg Neutrophils # Man (1.8-7.7) K/mm3 Lymphocytes # (Manual) (1.2-5.4) K/mm3 Sodium 132 L (137-145) mmol/L Chloride 92.4 L (98-107) mmol/L BUN 77 H (9-20) mg/dL Creatinine 5.9 H (0.8-1.5) mg/dL POC Glucose 111 H 136 H (70-105) Calcium 7.3 L (8.4-10.2) mg/dL Phosphorus 6.40 H D (2.5-4.5) mg/dL
[2018-05-31] MEDS: FERROUS SULFATE PO SCH ×2 (18:52→23:00)
[2018-05-31] MEDS: FOLVITE PO SCH (18:52)
[2018-05-31] MEDS ORDERED: TPN ADULT 2,016 ML IV SCH (20:00)
[2018-06-01] MEDS: HumuLIN R SUB-Q SCH ×3 (00:20→12:37)
[2018-06-01] MEDS: LOPRESSOR IV SCH ×3 (02:38→21:51)
[2018-06-01 05:15] LABS: Calcium 7.3 mg/dL (8.4-10.2)
[2018-06-01] MEDS: APRESOLINE PO SCH ×2 (06:54→21:55)
[2018-06-01] MEDS: FLAGYL 500 MG/100 ML 500 MG/100 ML BAG IV SCH ×3 (06:58→21:34)
--- NOTE | 2018-06-01 08:07 | Progress Note ---
Assessment and Plan POD # 6 Pt extubated. Awake & alert. no compl. Abd 2+ distention. minimal tenderness. ostomy pink, no air noted in bag surgically status quo. continue present care Objective Vital Signs - 12hr 05/31/18 05/31/18 05/31/18 20:16 20:27 20:30 Temperature Pulse Rate 111 H 113 H 113 H Pulse Rate [ From Monitor] Respiratory 31 H 32 H Rate Respiratory Rate [Abdomen] Blood Pressure 129/82 129/82 131/83 O2 Sat by Pulse 98 94 Oximetry 05/31/18 05/31/18 05/31/18 20:46 21:00 21:16 Temperature Pulse Rate 104 H 101 H 100 H Pulse Rate [ From Monitor] Respiratory 33 H 32 H 33 H Rate Respiratory Rate [Abdomen] Blood Pressure 131/83 131/82 131/82 O2 Sat by Pulse 95 93 93 Oximetry 05/31/18 05/31/18 05/31/18 21:28 21:30 22:00 Temperature Pulse Rate 100 H 101 H 106 H Pulse Rate [ From Monitor] Respiratory 30 H 31 H Rate Respiratory 31 H Rate [Abdomen] Blood Pressure 133/81 133/81 O2 Sat by Pulse 93 91 Oximetry 05/31/18 05/31/18 05/31/18 22:30 23:00 23:30 Temperature Pulse Rate 106 H 108 H 108 H Pulse Rate [ From Monitor] Respiratory 33 H 31 H 31 H Rate Respiratory Rate [Abdomen] Blood Pressure 131/83 133/85 132/83 O2 Sat by Pulse 94 96 Oximetry 06/01/18 06/01/18 06/01/18 00:00 00:06 00:30 Temperature 99.4 F Pulse Rate 110 H 110 H 109 H Pulse Rate [ 112 H From Monitor] Respiratory 30 H 34 H 30 H Rate Respiratory Rate [Abdomen] Blood Pressure 129/81 132/83 129/80 O2 Sat by Pulse 100 97 95 Oximetry 06/01/18 06/01/18 06/01/18 01:00 01:30 02:00 Temperature Pulse Rate 110 H 109 H 109 H Pulse Rate [ From Monitor] Respiratory 31 H 32 H 31 H Rate Respiratory Rate [Abdomen] Blood Pressure 129/80 130/81 136/81 O2 Sat by Pulse 97 90 92 Oximetry 06/01/18 06/01/18 06/01/18 02:30 02:38 03:00 Temperature Pulse Rate 110 H 110 H 103 H Pulse Rate [ From Monitor] Respiratory 37 H 36 H Rate Respiratory Rate [Abdomen] Blood Pressure 132/83 138/82 125/79 O2 Sat by Pulse 90 92 Oximetry 06/01/18 06/01/18 06/01/18 03:30 04:00 04:30 Temperature 97.6 F Pulse Rate 107 H 107 H 107 H Pulse Rate [ 107 H From Monitor] Respiratory 37 H 35 H 35 H Rate Respiratory Rate [Abdomen] Blood Pressure 137/83 138/88 138/84 O2 Sat by Pulse 90 90 90 Oximetry 06/01/18 06/01/18 06/01/18 05:00 05:30 06:00 Temperature Pulse Rate 108 H 112 H 112 H Pulse Rate [ From Monitor] Respiratory 35 H 37 H 35 H Rate Respiratory Rate [Abdomen] Blood Pressure 138/84 138/87 153/94 O2 Sat by Pulse 90 92 Oximetry 06/01/18 06/01/18 06/01/18 06:30 07:00 07:12 Temperature Pulse Rate 113 H 112 H Pulse Rate [ From Monitor] Respiratory 36 H 36 H Rate Respiratory Rate [Abdomen] Blood Pressure 134/86 141/90 O2 Sat by Pulse 92 90 93 Oximetry 06/01/18 08:00 Temperature 98.7 F Pulse Rate Pulse Rate [ From Monitor] Respiratory Rate Respiratory Rate [Abdomen] Blood Pressure O2 Sat by Pulse Oximetry - Labs 05/31/18 04:50 06/01/18 04:00 Diabetes panel 06/01/18 Range/Units 04:00 Sodium 137 (137-145) mmol/L Potassium 4.0 (3.6-5.0) mmol/L Chloride 97.5 L (98-107) mmol/L Carbon Dioxide 24 (22-30) mmol/L BUN 49 H (9-20) mg/dL Creatinine 4.2 H (0.8-1.5) mg/dL Glucose 104 H (75-100) mg/dL Calcium 7.3 L (8.4-10.2) mg/dL Calcium panel 06/01/18 Range/Units 04:00 Calcium 7.3 L (8.4-10.2) mg/dL Phosphorus 4.70 H D (2.5-4.5) mg/dL Pituitary panel 06/01/18 Range/Units 04:00 Sodium 137 (137-145) mmol/L Potassium 4.0 (3.6-5.0) mmol/L Chloride 97.5 L (98-107) mmol/L Carbon Dioxide 24 (22-30) mmol/L BUN 49 H (9-20) mg/dL Creatinine 4.2 H (0.8-1.5) mg/dL Glucose 104 H (75-100) mg/dL Calcium 7.3 L (8.4-10.2) mg/dL Adrenal panel 06/01/18 Range/Units 04:00 Sodium 137 (137-145) mmol/L Potassium 4.0 (3.6-5.0) mmol/L Chloride 97.5 L (98-107) mmol/L Carbon Dioxide 24 (22-30) mmol/L BUN 49 H (9-20) mg/dL Creatinine 4.2 H (0.8-1.5) mg/dL Glucose 104 H (75-100) mg/dL Calcium 7.3 L (8.4-10.2) mg/dL
--- NOTE | 2018-06-01 08:31 | Progress Note ---
Assessment and Plan 1. Acute kidney injury: Recurrent Acute kidney injury. Initial MARYLOU in the setting of bilateral hydronephrosis secondary to pelvic mass , now s/p bilateral nephrostomy. Patient required urgent hemodialysis due to worsening renal function and persistent hyperkalemia. Last dialyzed yesterday. Monitor for [employer] needs. Renal prognosis is guarded. 2. Electrolytes: Hyponatremia, monitor. Hyperkalemia, K level is better. 3. Bowel obstruction: S/p ostomy. 4. Bilateral hydronephrosis: S/p bilateral nephrostomy. S/p Cysto and drainage of abscess. 5. Respiratory failure: On vent. 6. Hypotension: BP is better. 7. Anemia. 8. 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 Subjective Date of service: 06/01/18 Principal diagnosis: squamous cell ca - prostate bx - prelim report Interval history: Patient was seen and examined at the bedside. Objective - Vital Signs Vital signs: Vital Signs - 12hr 05/31/18 05/31/18 05/31/18 20:46 21:00 21:16 Temperature Pulse Rate 104 H 101 H 100 H Pulse Rate [ From Monitor] Respiratory 33 H 32 H 33 H Rate Respiratory Rate [Abdomen] Blood Pressure 131/83 131/82 131/82 O2 Sat by Pulse 95 93 93 Oximetry 05/31/18 05/31/18 05/31/18 21:28 21:30 22:00 Temperature Pulse Rate 100 H 101 H 106 H Pulse Rate [ From Monitor] Respiratory 30 H 31 H Rate Respiratory 31 H Rate [Abdomen] Blood Pressure 133/81 133/81 O2 Sat by Pulse 93 91 Oximetry 05/31/18 05/31/18 05/31/18 22:30 23:00 23:30 Temperature Pulse Rate 106 H 108 H 108 H Pulse Rate [ From Monitor] Respiratory 33 H 31 H 31 H Rate Respiratory Rate [Abdomen] Blood Pressure 131/83 133/85 132/83 O2 Sat by Pulse 94 96 Oximetry 06/01/18 06/01/18 06/01/18 00:00 00:06 00:30 Temperature 99.4 F Pulse Rate 110 H 110 H 109 H Pulse Rate [ 112 H From Monitor] Respiratory 30 H 34 H 30 H Rate Respiratory Rate [Abdomen] Blood Pressure 129/81 132/83 129/80 O2 Sat by Pulse 100 97 95 Oximetry 06/01/18 06/01/18 06/01/18 01:00 01:30 02:00 Temperature Pulse Rate 110 H 109 H 109 H Pulse Rate [ From Monitor] Respiratory 31 H 32 H 31 H Rate Respiratory Rate [Abdomen] Blood Pressure 129/80 130/81 136/81 O2 Sat by Pulse 97 90 92 Oximetry 06/01/18 06/01/18 06/01/18 02:30 02:38 03:00 Temperature Pulse Rate 110 H 110 H 103 H Pulse Rate [ From Monitor] Respiratory 37 H 36 H Rate Respiratory Rate [Abdomen] Blood Pressure 132/83 138/82 125/79 O2 Sat by Pulse 90 92 Oximetry 06/01/18 06/01/18 06/01/18 03:30 04:00 04:30 Temperature 97.6 F Pulse Rate 107 H 107 H 107 H Pulse Rate [ 107 H From Monitor] Respiratory 37 H 35 H 35 H Rate Respiratory Rate [Abdomen] Blood Pressure 137/83 138/88 138/84 O2 Sat by Pulse 90 90 90 Oximetry 06/01/18 06/01/18 06/01/18 05:00 05:30 06:00 Temperature Pulse Rate 108 H 112 H 112 H Pulse Rate [ From Monitor] Respiratory 35 H 37 H 35 H Rate Respiratory Rate [Abdomen] Blood Pressure 138/84 138/87 153/94 O2 Sat by Pulse 90 92 Oximetry 06/01/18 06/01/18 06/01/18 06:30 07:00 07:12 Temperature Pulse Rate 113 H 112 H Pulse Rate [ From Monitor] Respiratory 36 H 36 H Rate Respiratory Rate [Abdomen] Blood Pressure 134/86 141/90 O2 Sat by Pulse 92 90 93 Oximetry 06/01/18 08:00 Temperature 98.7 F Pulse Rate Pulse Rate [ From Monitor] Respiratory Rate Respiratory Rate [Abdomen] Blood Pressure O2 Sat by Pulse Oximetry - General Appearance General appearance: well-developed, appears stated age, other (not in distress) EENT: ATNC, PERRL, hearing intact Neck: supple Respiratory: Present: Clear to Ascultation Cardiology: regular, S1S2, no murmurs Gastrointestinal: normoactive bowel sounds, distended, other (ostomy, drain and bilaeral nephrology tubes noted) Integumentary: no rash Neurologic: no focal deficit, no asterixis Musculoskeletal: other (no edema) - Lab 05/31/18 04:50 06/01/18 04:00 Most recent lab results Calcium 7.3 mg/dL (8.4-10.2) L 06/01/18 04:00 Phosphorus 4.70 mg/dL (2.5-4.5) H D 06/01/18 04:00 Magnesium 1.80 mg/dL (1.7-2.3) 06/01/18 04:00 Urine Creatinine 66.0 mg/dL (0.1-20.0) H 05/13/18 19:39 Urine Sodium 60 mmol/L 05/13/18 19:39 Urine Total Protein 24 mg/dL (5-11.8) H 05/13/18 19:39
--- NOTE | 2018-06-01 09:13 | XRay Report ---
AP ABDOMEN: HISTORY: Tube placement. Bilateral nephrostomy tubes and right femoral catheter remain in the same position since the exam 2 days ago. The nasogastric tube has been repositioned or replaced. The distal tip of the nasogastric tube is seen along the superior border of the film and appears to terminate just beyond the GE junction. Consider advancement by 10 cm. No obstructive bowel gas pattern is appreciated. IMPRESSION: Nasogastric tube terminates just beyond the GE junction. See above.
[2018-06-01] MEDS: HEPARIN SUB-Q SCH ×2 (09:38→21:32)
[2018-06-01] MEDS: APRESOLINE IV PRN (09:39)
[2018-06-01] MEDS: PEPCID IV SCH (09:39)
[2018-06-01] MEDS: MAXIPIME/NS 2 GM/100 ML 2 GM/100 ML BAG IV SCH (09:39)
[2018-06-01] MEDS: FOLVITE PO SCH (09:41)
[2018-06-01] MEDS: FERROUS SULFATE PO SCH ×2 (09:41→21:40)
--- NOTE | 2018-06-01 10:14 | Progress Note ---
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 Hypertensive urgency, Sinus tachycardia with HR 160s CTA negative for PE Hyperkalemia Hypernatrmia Metabolic acidosis Acute blood loss anemia Moderate to severe protein calorie malnutrition - continue supplemental oxygen to keep sats > 90% - NIPPV prn for work of breathing -Abdominal USS, if significant ascites with get a therapeutic paracentesis, as this will improve respiratory status - continue bronchodilators with pulmonary hygiene per RT - HD/UF for toxin and volume clearance - continue anti-infective's per ID recs (Cefepime, Zyvox, flagyl) - continue TPN for now (enteral nutrition once cleared by surgery) - Malignancy per heme-oncologist - continue mobility protocol for pressure ulcer prophylaxis - s/p surgery 05/26 (had ex-lap; matted abdominal organs, pus - Enterostomy tube decompression,loop colostomy and large triple lumen sump drainage of pelvis) - s/p bilateral nephrostomy tubes placed 05/14/[address] Freeman.(CTA negative for P.E.) - continue other care per attending / other consultants -keep in the critical care unit for close monitoring. Kassie tenuous from a respiratory and hemodynamic perspective The high probability of a clinically significant, sudden or life threatening deterioration of the [respiratory,cardiac, urologic and renal] system(s) required my full and direct attention, intervention and personal management. The aggregate critical care time was [31] minutes without overlap. Time includes spent on; [x] Data Review and interpretation [x] Patient assessment and monitoring of vital signs [x] Documentation [x] Medication orders and management - Full code status Subjective Date of service: 06/01/18 Principal diagnosis: squamous cell ca - prostate bx - prelim report Interval history: s/p POD#1 for diverting colostomy. Remained intubated post operatively Patient is seen today for: Acute Hypoxemic Resp Failure; Sepsis Syndrome; Acute VTE; Prostate Cancer Seen and examined. vitals, labs, medications, chart reviewed.; 24hour events reviewed; nursing and respiratory care staff consulted; no adverse overnight events reported to me; extubated, doing well; clean urine seen in nephrostomy bags; denies acute chest pains or increased SOB; on going abdominal distension Objective Vital Signs - 12hr 05/31/18 05/31/18 05/31/18 22:30 23:00 23:30 Temperature Pulse Rate 106 H 108 H 108 H Pulse Rate [ From Monitor] Respiratory 33 H 31 H 31 H Rate Blood Pressure 131/83 133/85 132/83 O2 Sat by Pulse 94 96 Oximetry 06/01/18 06/01/18 06/01/18 00:00 00:06 00:30 Temperature 99.4 F Pulse Rate 110 H 110 H 109 H Pulse Rate [ 112 H From Monitor] Respiratory 30 H 34 H 30 H Rate Blood Pressure 129/81 132/83 129/80 O2 Sat by Pulse 100 97 95 Oximetry 06/01/18 06/01/18 06/01/18 01:00 01:30 02:00 Temperature Pulse Rate 110 H 109 H 109 H Pulse Rate [ From Monitor] Respiratory 31 H 32 H 31 H Rate Blood Pressure 129/80 130/81 136/81 O2 Sat by Pulse 97 90 92 Oximetry 06/01/18 06/01/18 06/01/18 02:30 02:38 03:00 Temperature Pulse Rate 110 H 110 H 103 H Pulse Rate [ From Monitor] Respiratory 37 H 36 H Rate Blood Pressure 132/83 138/82 125/79 O2 Sat by Pulse 90 92 Oximetry 06/01/18 06/01/18 06/01/18 03:30 04:00 04:30 Temperature 97.6 F Pulse Rate 107 H 107 H 107 H Pulse Rate [ 107 H From Monitor] Respiratory 37 H 35 H 35 H Rate Blood Pressure 137/83 138/88 138/84 O2 Sat by Pulse 90 90 90 Oximetry 06/01/18 06/01/18 06/01/18 05:00 05:30 06:00 Temperature Pulse Rate 108 H 112 H 112 H Pulse Rate [ From Monitor] Respiratory 35 H 37 H 35 H Rate Blood Pressure 138/84 138/87 153/94 O2 Sat by Pulse 90 92 Oximetry 06/01/18 06/01/18 06/01/18 06:30 07:00 07:12 Temperature Pulse Rate 113 H 112 H Pulse Rate [ From Monitor] Respiratory 36 H 36 H Rate Blood Pressure 134/86 141/90 O2 Sat by Pulse 92 90 93 Oximetry 06/01/18 06/01/18 06/01/18 08:00 09:39 09:45 Temperature 98.7 F Pulse Rate 114 H 114 H Pulse Rate [ From Monitor] Respiratory Rate Blood Pressure 140/88 140/88 O2 Sat by Pulse Oximetry Constitutional: alert, other (chronically ill looking middle aged AAM, normocephalic and atraumatic, ) Eyes: non-icteric ENT: oropharynx moist Neck: supple, no lymphadenopathy, no JVD, other (no thyromegaly) Effort: mildly labored Ascultation: Bilateral: diminished breath sounds, rhonchi (scant in bases) Percussion: Bilateral: not dull Cardiovascular: regular rate and rhythm, other (No R/M) Gastrointestinal: hypoactive bowel sounds, soft, tender (mild), other (Distended ; No palpable HSM, bilateral nephrostomy tubes,) Integumentary: other (femoral vascath) Extremities: no cyanosis, no edema, pulses normal, no ischemia or petechiae Neurologic: normal mental status, non-focal exam, pupils equal and round, other (weak) Psychiatric: mood appropriate, affect normal CBC and BMP: 05/31/18 04:50 06/01/18 04:00 ABG, PT/INR, D-dimer: ABG POC ABG pH 7.362 (7.35-7.45) 05/31/18 09:58 POC ABG pCO2 36.4 (35-45) 05/31/18 09:58 POC ABG pO2 101 (80-105) 05/31/18 09:58 POC ABG HCO3 20.7 05/31/18 09:58 POC ABG Total CO2 22 05/31/18 09:58 POC ABG O2 Sat 98 05/31/18 09:58 PT/INR, D-dimer PT 18.3 Sec. (12.2-14.9) H 05/23/18 09:03 INR 1.43 (0.87-1.13) H 05/23/18 09:03 Abnormal lab findings: Abnormal Labs 05/13/18 05/13/18 05/13/18 04:27 04:27 19:39 WBC RBC 3.13 L Hgb 9.4 L Hct 26.8 L MCHC 35 H RDW Lymph % (Auto) [place] % (Auto) 9.6 H Lymph # [place] # Seg Neutrophils % Seg Neuts % (Manual) Lymphocytes % (Manual) Seg Neutrophils # Seg Neutrophils # Man Lymphocytes # (Manual) PT INR APTT POC ABG pH POC ABG pCO2 POC ABG pO2 Sodium 132 L Potassium 5.5 H Chloride 94.1 L Carbon Dioxide 19 L BUN 72 H Creatinine 14.4 H Glucose POC Glucose Lactic Acid Calcium Phosphorus Magnesium Iron TIBC AST ALT Alkaline Phosphatase Total Creatine Kinase C-Reactive Protein Total Protein Albumin 2.8 L Folate PTH Intact Urine WBC (Auto) Urine Creatinine 66.0 H Urine Chloride 27.8 L Urine Total Protein 24 H Vancomycin Trough Crossmatch 05/13/18 05/14/18 05/14/18 20:00 05:05 05:05 WBC RBC Hgb Hct MCHC RDW Lymph % (Auto) [place] % (Auto) Lymph # [place] # Seg Neutrophils % Seg Neuts % (Manual) Lymphocytes % (Manual) Seg Neutrophils # Seg Neutrophils # Man Lymphocytes # (Manual) PT INR APTT POC ABG pH POC ABG pCO2 POC ABG pO2 Sodium 132 L 131 L Potassium 5.2 H 5.8 H Chloride 93.0 L 95.6 L Carbon Dioxide 19 L 20 L BUN 74 H 81 H Creatinine 15.0 H 16.6 H Glucose 134 H 127 H POC Glucose Lactic Acid Calcium 8.2 L 7.9 L Phosphorus 6.30 H Magnesium Iron TIBC AST ALT Alkaline Phosphatase Total Creatine Kinase 236 H C-Reactive Protein Total Protein Albumin Folate PTH Intact 65.37 H Urine WBC (Auto) Urine Creatinine Urine Chloride Urine Total Protein Vancomycin Trough Crossmatch 05/14/18 05/14/18 05/14/18 09:28 10:56 13:29 WBC RBC Hgb Hct MCHC RDW Lymph % (Auto) [place] % (Auto) Lymph # [place] # Seg Neutrophils % Seg Neuts % (Manual) Lymphocytes % (Manual) Seg Neutrophils # Seg Neutrophils # Man Lymphocytes # (Manual) PT INR APTT 38.2 H POC ABG pH POC ABG pCO2 POC ABG pO2 Sodium Potassium Chloride Carbon Dioxide BUN Creatinine Glucose POC Glucose 127 H 126 H Lactic Acid Calcium Phosphorus Magnesium Iron TIBC AST ALT Alkaline Phosphatase Total Creatine Kinase C-Reactive Protein Total Protein Albumin Folate PTH Intact Urine WBC (Auto) Urine Creatinine Urine Chloride Urine Total Protein Vancomycin Trough Crossmatch 05/15/18 05/15/18 05/16/18 08:06 08:06 07:02 WBC RBC 2.84 L 2.74 L Hgb 8.5 L 8.5 L Hct 24.2 L 23.5 L MCHC 35 H 36 H RDW Lymph % (Auto) [place] % (Auto) 10.4 H 11.0 H Lymph # 1.1 L [place] # 0.9 H Seg Neutrophils % 72.6 H Seg Neuts % (Manual) Lymphocytes % (Manual) Seg Neutrophils # Seg Neutrophils # Man Lymphocytes # (Manual) PT INR APTT POC ABG pH POC ABG pCO2 POC ABG pO2 Sodium Potassium Chloride Carbon Dioxide 19 L BUN 66 H Creatinine 12.0 H Glucose 115 H POC Glucose Lactic Acid Calcium 8.1 L Phosphorus Magnesium Iron TIBC AST ALT Alkaline Phosphatase Total Creatine Kinase C-Reactive Protein Total Protein Albumin Folate PTH Intact Urine WBC (Auto) Urine Creatinine Urine Chloride Urine Total Protein Vancomycin Trough Crossmatch 05/16/18 05/16/18 05/17/18 07:02 07:02 05:08 WBC RBC 2.78 L Hgb 8.2 L Hct 23.9 L MCHC RDW Lymph % (Auto) [place] % (Auto) 13.9 H Lymph # [place] # 0.9 H Seg Neutrophils % Seg Neuts % (Manual) Lymphocytes % (Manual) Seg Neutrophils # Seg Neutrophils # Man Lymphocytes # (Manual) PT INR APTT POC ABG pH POC ABG pCO2 POC ABG pO2 Sodium Potassium Chloride Carbon Dioxide BUN 28 H Creatinine 2.4 H D Glucose POC Glucose Lactic Acid Calcium 8.3 L Phosphorus Magnesium 1.50 L Iron 24 L TIBC 160 L AST ALT Alkaline Phosphatase Total Creatine Kinase C-Reactive Protein Total Protein Albumin Folate 5.39 L PTH Intact Urine WBC (Auto) Urine Creatinine Urine Chloride Urine Total Protein Vancomycin Trough Crossmatch 05/17/18 05/18/18 05/18/18 05:08 05:57 05:57 WBC RBC 2.79 L Hgb 8.3 L Hct 24.0 L MCHC 35 H RDW Lymph % (Auto) [place] % (Auto) 11.8 H Lymph # [place] # 0.9 H Seg Neutrophils % Seg Neuts % (Manual) Lymphocytes % (Manual) Seg Neutrophils # Seg Neutrophils # Man Lymphocytes # (Manual) PT INR APTT POC ABG pH POC ABG pCO2 POC ABG pO2 Sodium Potassium Chloride Carbon Dioxide BUN Creatinine Glucose POC Glucose Lactic Acid Calcium 7.7 L 8.0 L Phosphorus Magnesium 1.60 L Iron TIBC AST ALT Alkaline Phosphatase Total Creatine Kinase C-Reactive Protein Total Protein Albumin Folate PTH Intact Urine WBC (Auto) Urine Creatinine Urine Chloride Urine Total Protein Vancomycin Trough Crossmatch 05/19/18 05/19/18 05/20/18 05:33 05:33 05:38 WBC RBC 2.95 L Hgb 8.8 L Hct 25.8 L MCHC RDW Lymph % (Auto) 10.1 L [place] % (Auto) Lymph # 1.1 L [place] # Seg Neutrophils % 85.2 H Seg Neuts % (Manual) Lymphocytes % (Manual) Seg Neutrophils # 9.0 H Seg Neutrophils # Man Lymphocytes # (Manual) PT INR APTT POC ABG pH POC ABG pCO2 POC ABG pO2 Sodium 135 L Potassium Chloride Carbon Dioxide BUN Creatinine Glucose 132 H POC Glucose Lactic Acid Calcium 7.8 L 8.3 L Phosphorus Magnesium 1.40 L Iron TIBC AST ALT Alkaline Phosphatase Total Creatine Kinase C-Reactive Protein Total Protein Albumin Folate PTH Intact Urine WBC (Auto) Urine Creatinine Urine Chloride Urine Total Protein Vancomycin Trough Crossmatch 05/21/18 05/21/18 05/22/18 04:46 15:30 06:49 WBC 20.0 H RBC 2.70 L Hgb 7.8 L Hct 23.3 L MCHC RDW Lymph % (Auto) [place] % (Auto) Lymph # [place] # Seg Neutrophils % Seg Neuts % (Manual) 85.0 H Lymphocytes % (Manual) 4.0 L Seg Neutrophils # Seg Neutrophils # Man 17.0 H Lymphocytes # (Manual) 0.8 L PT INR APTT POC ABG pH POC ABG pCO2 POC ABG pO2 Sodium 135 L Potassium 3.5 L Chloride Carbon Dioxide 21 L BUN 22 H Creatinine Glucose POC Glucose Lactic Acid Calcium 8.1 L Phosphorus Magnesium Iron TIBC AST ALT Alkaline Phosphatase Total Creatine Kinase C-Reactive Protein Total Protein Albumin Folate PTH Intact Urine WBC (Auto) 28.0 H Urine Creatinine Urine Chloride Urine Total Protein Vancomycin Trough Crossmatch 05/22/18 05/22/18 05/23/18 06:49 11:23 09:03 WBC RBC Hgb Hct MCHC RDW Lymph % (Auto) [place] % (Auto) Lymph # [place] # Seg Neutrophils % Seg Neuts % (Manual) Lymphocytes % (Manual) Seg Neutrophils # Seg Neutrophils # Man Lymphocytes # (Manual) PT INR APTT POC ABG pH POC ABG pCO2 POC ABG pO2 Sodium 134 L Potassium 3.5 L Chloride Carbon Dioxide 21 L BUN 35 H 36 H Creatinine 1.7 H Glucose 107 H POC Glucose Lactic Acid Calcium 7.9 L Phosphorus Magnesium 2.50 H Iron TIBC AST ALT Alkaline Phosphatase Total Creatine Kinase C-Reactive Protein Total Protein Albumin Folate PTH Intact Urine WBC (Auto) Urine Creatinine Urine Chloride Urine Total Protein Vancomycin Trough Crossmatch See Detail 05/23/18 05/23/18 05/23/18 09:03 09:03 17:34 WBC 26.3 H RBC 3.57 L Hgb 10.4 L Hct 31.1 L D MCHC RDW Lymph % (Auto) [place] % (Auto) Lymph # [place] # Seg Neutrophils % Seg Neuts % (Manual) Lymphocytes % (Manual) Seg Neutrophils # Seg Neutrophils # Man Lymphocytes # (Manual) PT 18.3 H INR 1.43 H APTT 40.0 H POC ABG pH POC ABG pCO2 POC ABG pO2 Sodium Potassium Chloride Carbon Dioxide BUN Creatinine Glucose POC Glucose 108 H Lactic Acid Calcium Phosphorus Magnesium Iron TIBC AST ALT Alkaline Phosphatase Total Creatine Kinase C-Reactive Protein Total Protein Albumin Folate PTH Intact Urine WBC (Auto) Urine Creatinine Urine Chloride Urine Total Protein Vancomycin Trough Crossmatch 05/23/18 05/24/18 05/24/18 21:14 04:43 08:04 WBC RBC Hgb Hct MCHC RDW Lymph % (Auto) [place] % (Auto) Lymph # [place] # Seg Neutrophils % Seg Neuts % (Manual) Lymphocytes % (Manual) Seg Neutrophils # Seg Neutrophils # Man Lymphocytes # (Manual) PT INR APTT POC ABG pH POC ABG pCO2 POC ABG pO2 Sodium 146 H Potassium Chloride 108.6 H Carbon Dioxide BUN 33 H Creatinine Glucose 109 H POC Glucose 110 H 106 H Lactic Acid Calcium 8.3 L Phosphorus Magnesium 2.50 H Iron TIBC AST ALT Alkaline Phosphatase Total Creatine Kinase C-Reactive Protein Total Protein Albumin Folate PTH Intact Urine WBC (Auto) Urine Creatinine Urine Chloride Urine Total Protein Vancomycin Trough Crossmatch 05/25/18 05/25/18 05/25/18 05:42 05:49 19:50 WBC RBC Hgb Hct MCHC RDW Lymph % (Auto) [place] % (Auto) Lymph # [place] # Seg Neutrophils % Seg Neuts % (Manual) Lymphocytes % (Manual) Seg Neutrophils # Seg Neutrophils # Man Lymphocytes # (Manual) PT INR APTT POC ABG pH POC ABG pCO2 POC ABG pO2 Sodium 150 H Potassium Chloride 112.5 H Carbon Dioxide BUN 34 H Creatinine Glucose 102 H POC Glucose 107 H Lactic Acid Calcium Phosphorus Magnesium Iron TIBC AST ALT Alkaline Phosphatase Total Creatine Kinase C-Reactive Protein 34.50 H Total Protein Albumin Folate PTH Intact Urine WBC (Auto) Urine Creatinine Urine Chloride Urine Total Protein Vancomycin Trough Crossmatch 05/25/18 05/25/18 05/25/18 19:50 21:05 22:46 WBC RBC Hgb Hct MCHC RDW Lymph % (Auto) [place] % (Auto) Lymph # [place] # Seg Neutrophils % Seg Neuts % (Manual) Lymphocytes % (Manual) Seg Neutrophils # Seg Neutrophils # Man Lymphocytes # (Manual) PT INR APTT POC ABG pH 7.483 H POC ABG pCO2 24.0 L POC ABG pO2 72 L Sodium Potassium Chloride Carbon Dioxide BUN Creatinine Glucose POC Glucose Lactic Acid 5.90 H* Calcium Phosphorus Magnesium Iron TIBC AST ALT Alkaline Phosphatase Total Creatine Kinase C-Reactive Protein Total Protein Albumin Folate PTH Intact Urine WBC (Auto) Urine Creatinine Urine Chloride Urine Total Protein Vancomycin Trough 25.1 H Crossmatch 05/25/18 05/26/18 05/26/18 22:46 00:21 00:51 WBC RBC Hgb Hct MCHC RDW Lymph % (Auto) [place] % (Auto) Lymph # [place] # Seg Neutrophils % Seg Neuts % (Manual) Lymphocytes % (Manual) Seg Neutrophils # Seg Neutrophils # Man Lymphocytes # (Manual) PT INR APTT POC ABG pH POC ABG pCO2 POC ABG pO2 Sodium Potassium Chloride Carbon Dioxide BUN Creatinine Glucose POC Glucose 133 H Lactic Acid 8.10 H* 6.20 H* Calcium Phosphorus Magnesium Iron TIBC AST ALT Alkaline Phosphatase Total Creatine Kinase C-Reactive Protein Total Protein Albumin Folate PTH Intact Urine WBC (Auto) Urine Creatinine Urine Chloride Urine Total Protein Vancomycin Trough Crossmatch 05/26/18 05/26/18 05/26/18 01:13 02:24 02:24 WBC 18.7 H RBC Hgb 11.6 L Hct MCHC RDW Lymph % (Auto) [place] % (Auto) Lymph # [place] # Seg Neutrophils % Seg Neuts % (Manual) Lymphocytes % (Manual) Seg Neutrophils # Seg Neutrophils # Man Lymphocytes # (Manual) PT INR APTT POC ABG pH POC ABG pCO2 POC ABG pO2 Sodium 147 H Potassium 6.2 H* D Chloride 111.9 H Carbon Dioxide 19 L BUN 80 H Creatinine 5.1 H D Glucose 112 H POC Glucose Lactic Acid 5.20 H* Calcium 6.7 L D Phosphorus Magnesium Iron TIBC AST ALT Alkaline Phosphatase Total Creatine Kinase C-Reactive Protein Total Protein Albumin Folate PTH Intact Urine WBC (Auto) Urine Creatinine Urine Chloride Urine Total Protein Vancomycin Trough Crossmatch 05/26/18 05/26/18 05/26/18 04:20 04:20 05:39 WBC RBC Hgb Hct MCHC RDW Lymph % (Auto) [place] % (Auto) Lymph # [place] # Seg Neutrophils % Seg Neuts % (Manual) Lymphocytes % (Manual) Seg Neutrophils # Seg Neutrophils # Man Lymphocytes # (Manual) PT INR APTT POC ABG pH POC ABG pCO2 POC ABG pO2 Sodium 150 H Potassium Chloride 110.0 H Carbon Dioxide 19 L BUN 66 H Creatinine Glucose 166 H POC Glucose 187 H Lactic Acid 5.10 H* Calcium 6.9 L Phosphorus 6.70 H D Magnesium Iron TIBC AST ALT Alkaline Phosphatase Total Creatine Kinase C-Reactive Protein Total Protein Albumin Folate PTH Intact Urine WBC (Auto) Urine Creatinine Urine Chloride Urine Total Protein Vancomycin Trough Crossmatch 05/26/18 05/26/18 05/26/18 06:02 07:29 11:00 WBC RBC Hgb Hct MCHC RDW Lymph % (Auto) [place] % (Auto) Lymph # [place] # Seg Neutrophils % Seg Neuts % (Manual) Lymphocytes % (Manual) Seg Neutrophils # Seg Neutrophils # Man Lymphocytes # (Manual) PT INR APTT POC ABG pH POC ABG pCO2 28.8 L POC ABG pO2 Sodium Potassium Chloride Carbon Dioxide BUN Creatinine Glucose POC Glucose Lactic Acid 4.80 H* 3.80 H* Calcium Phosphorus Magnesium Iron TIBC AST ALT Alkaline Phosphatase Total Creatine Kinase C-Reactive Protein Total Protein Albumin Folate PTH Intact Urine WBC (Auto) Urine Creatinine Urine Chloride Urine Total Protein Vancomycin Trough Crossmatch 05/26/18 05/26/18 05/26/18 11:01 12:28 18:00 WBC RBC Hgb Hct MCHC RDW Lymph % (Auto) [place] % (Auto) Lymph # [place] # Seg Neutrophils % Seg Neuts % (Manual) Lymphocytes % (Manual) Seg Neutrophils # Seg Neutrophils # Man Lymphocytes # (Manual) PT INR APTT POC ABG pH POC ABG pCO2 POC ABG pO2 Sodium 150 H 151 H Potassium 5.3 H D 6.1 H* Chloride 110.3 H 117.0 H Carbon Dioxide 21 L 20 L BUN 75 H 77 H Creatinine 4.3 H D 4.6 H Glucose 161 H POC Glucose 114 H Lactic Acid Calcium 7.5 L 6.7 L Phosphorus Magnesium Iron TIBC AST 1041 H ALT 406 H Alkaline Phosphatase 281 H Total Creatine Kinase C-Reactive Protein Total Protein 4.4 L Albumin 1.3 L Folate PTH Intact Urine WBC (Auto) Urine Creatinine Urine Chloride Urine Total Protein Vancomycin Trough Crossmatch 05/26/18 05/26/18 05/27/18 18:02 19:17 01:01 WBC 21.7 H RBC 2.70 L Hgb 7.8 L D Hct 24.6 L D MCHC RDW 15.3 H Lymph % (Auto) [place] % (Auto) Lymph # [place] # Seg Neutrophils % Seg Neuts % (Manual) 94.0 H Lymphocytes % (Manual) 3.0 L Seg Neutrophils # Seg Neutrophils # Man 20.4 H Lymphocytes # (Manual) 0.7 L PT INR APTT POC ABG pH 7.159 L 7.205 L POC ABG pCO2 54.5 H 53.0 H POC ABG pO2 252 H Sodium Potassium Chloride Carbon Dioxide BUN Creatinine Glucose POC Glucose Lactic Acid Calcium Phosphorus Magnesium Iron TIBC AST ALT Alkaline Phosphatase Total Creatine Kinase C-Reactive Protein Total Protein Albumin Folate PTH Intact Urine WBC (Auto) Urine Creatinine Urine Chloride Urine Total Protein Vancomycin Trough Crossmatch 05/27/18 05/27/18 05/27/18 05:15 05:15 06:11 WBC 24.9 H RBC 2.86 L Hgb 8.1 L Hct 25.9 L MCHC RDW 15.5 H Lymph % (Auto) [place] % (Auto) Lymph # [place] # Seg Neutrophils % Seg Neuts % (Manual) Lymphocytes % (Manual) Seg Neutrophils # Seg Neutrophils # Man Lymphocytes # (Manual) PT INR APTT POC ABG pH 7.265 L POC ABG pCO2 46.2 H POC ABG pO2 111 H Sodium 149 H Potassium 6.9 H* Chloride 113.5 H Carbon Dioxide BUN 89 H Creatinine 5.2 H Glucose 118 H POC Glucose Lactic Acid Calcium 7.0 L Phosphorus 9.70 H D Magnesium Iron TIBC AST 876 H ALT 408 H Alkaline Phosphatase Total Creatine Kinase C-Reactive Protein Total Protein 5.2 L Albumin 1.5 L Folate PTH Intact Urine WBC (Auto) Urine Creatinine Urine Chloride Urine Total Protein Vancomycin Trough Crossmatch 05/27/18 05/27/18 05/27/18 08:48 10:22 10:22 WBC RBC Hgb Hct MCHC RDW Lymph % (Auto) [place] % (Auto) Lymph # [place] # Seg Neutrophils % Seg Neuts % (Manual) Lymphocytes % (Manual) Seg Neutrophils # Seg Neutrophils # Man Lymphocytes # (Manual) PT INR APTT POC ABG pH POC ABG pCO2 POC ABG pO2 Sodium 146 H Potassium 6.1 H* Chloride 108.2 H Carbon Dioxide 21 L BUN 88 H Creatinine 5.6 H Glucose 163 H POC Glucose 164 H Lactic Acid Calcium 6.7 L Phosphorus Magnesium Iron TIBC AST ALT Alkaline Phosphatase Total Creatine Kinase C-Reactive Protein 40.70 H Total Protein Albumin Folate PTH Intact Urine WBC (Auto) Urine Creatinine Urine Chloride Urine Total Protein Vancomycin Trough Crossmatch 05/27/18 05/27/18 05/27/18 17:39 23:27 Unknown WBC RBC Hgb Hct MCHC RDW Lymph % (Auto) [place] % (Auto) Lymph # [place] # Seg Neutrophils % Seg Neuts % (Manual) Lymphocytes % (Manual) Seg Neutrophils # Seg Neutrophils # Man Lymphocytes # (Manual) PT INR APTT POC ABG pH POC ABG pCO2 POC ABG pO2 Sodium Potassium Chloride Carbon Dioxide BUN Creatinine Glucose POC Glucose 59 L 132 H Lactic Acid Calcium Phosphorus Magnesium Iron TIBC AST ALT Alkaline Phosphatase Total Creatine Kinase C-Reactive Protein Total Protein Albumin Folate PTH Intact Urine WBC (Auto) 120.0 H Urine Creatinine Urine Chloride Urine Total Protein Vancomycin Trough Crossmatch 05/28/18 05/28/18 05/28/18 04:32 05:00 05:00 WBC 26.5 H RBC 2.69 L Hgb 7.7 L Hct 23.6 L MCHC RDW Lymph % (Auto) [place] % (Auto) Lymph # [place] # Seg Neutrophils % Seg Neuts % (Manual) 96.0 H Lymphocytes % (Manual) 0 L Seg Neutrophils # Seg Neutrophils # Man 25.4 H Lymphocytes # (Manual) 0.0 L PT INR APTT POC ABG pH POC ABG pCO2 POC ABG pO2 134 H Sodium Potassium Chloride Carbon Dioxide BUN 69 H Creatinine 4.4 H Glucose 118 H POC Glucose Lactic Acid Calcium 8.0 L D Phosphorus 6.80 H D Magnesium Iron TIBC AST ALT Alkaline Phosphatase Total Creatine Kinase C-Reactive Protein Total Protein Albumin Folate PTH Intact Urine WBC (Auto) Urine Creatinine Urine Chloride Urine Total Protein Vancomycin Trough Crossmatch 05/28/18 05/28/18 05/28/18 05:27 13:04 17:56 WBC RBC Hgb Hct MCHC RDW Lymph % (Auto) [place] % (Auto) Lymph # [place] # Seg Neutrophils % Seg Neuts % (Manual) Lymphocytes % (Manual) Seg Neutrophils # Seg Neutrophils # Man Lymphocytes # (Manual) PT INR APTT POC ABG pH POC ABG pCO2 POC ABG pO2 Sodium Potassium Chloride Carbon Dioxide BUN Creatinine Glucose POC Glucose 128 H 155 H 110 H Lactic Acid Calcium Phosphorus Magnesium Iron TIBC AST ALT Alkaline Phosphatase Total Creatine Kinase C-Reactive Protein Total Protein Albumin Folate PTH Intact Urine WBC (Auto) Urine Creatinine Urine Chloride Urine Total Protein Vancomycin Trough Crossmatch 05/29/18 05/29/18 05/29/18 03:35 04:00 11:51 WBC RBC Hgb Hct MCHC RDW Lymph % (Auto) [place] % (Auto) Lymph # [place] # Seg Neutrophils % Seg Neuts % (Manual) Lymphocytes % (Manual) Seg Neutrophils # Seg Neutrophils # Man Lymphocytes # (Manual) PT INR APTT POC ABG pH 7.471 H POC ABG pCO2 POC ABG pO2 78 L Sodium Potassium Chloride Carbon Dioxide BUN 50 H Creatinine 3.9 H Glucose POC Glucose 131 H Lactic Acid Calcium 7.7 L Phosphorus Magnesium 1.50 L Iron TIBC AST 218 H ALT 204 H Alkaline Phosphatase Total Creatine Kinase C-Reactive Protein Total Protein 5.4 L Albumin 1.6 L Folate PTH Intact Urine WBC (Auto) Urine Creatinine Urine Chloride Urine Total Protein Vancomycin Trough Crossmatch 05/29/18 05/30/18 05/30/18 23:56 04:54 05:07 WBC RBC Hgb Hct MCHC RDW Lymph % (Auto) [place] % (Auto) Lymph # [place] # Seg Neutrophils % Seg Neuts % (Manual) Lymphocytes % (Manual) Seg Neutrophils # Seg Neutrophils # Man Lymphocytes # (Manual) PT INR APTT POC ABG pH POC ABG pCO2 34.5 L POC ABG pO2 133 H Sodium Potassium Chloride Carbon Dioxide BUN Creatinine Glucose POC Glucose 119 H 115 H Lactic Acid Calcium Phosphorus Magnesium Iron TIBC AST ALT Alkaline Phosphatase Total Creatine Kinase C-Reactive Protein Total Protein Albumin Folate PTH Intact Urine WBC (Auto) Urine Creatinine Urine Chloride Urine Total Protein Vancomycin Trough Crossmatch 05/30/18 05/30/18 05/30/18 05:15 05:15 12:13 WBC 16.2 H RBC 2.53 L Hgb 7.4 L Hct 21.9 L MCHC RDW Lymph % (Auto) [place] % (Auto) Lymph # [place] # Seg Neutrophils % Seg Neuts % (Manual) Lymphocytes % (Manual) Seg Neutrophils # Seg Neutrophils # Man Lymphocytes # (Manual) PT INR APTT POC ABG pH POC ABG pCO2 POC ABG pO2 Sodium 135 L Potassium Chloride 97.5 L Carbon Dioxide BUN 69 H Creatinine 5.4 H Glucose 105 H POC Glucose 132 H Lactic Acid Calcium 7.5 L Phosphorus 5.30 H D Magnesium Iron TIBC AST ALT Alkaline Phosphatase Total Creatine Kinase C-Reactive Protein Total Protein Albumin Folate PTH Intact Urine WBC (Auto) Urine Creatinine Urine Chloride Urine Total Protein Vancomycin Trough Crossmatch 05/30/18 05/31/18 05/31/18 17:10 04:50 04:50 WBC 18.7 H RBC 2.86 L Hgb 8.2 L Hct 24.8 L MCHC RDW Lymph % (Auto) [place] % (Auto) Lymph # [place] # Seg Neutrophils % Seg Neuts % (Manual) 91.0 H Lymphocytes % (Manual) 2.0 L Seg Neutrophils # Seg Neutrophils # Man 17.0 H Lymphocytes # (Manual) 0.4 L PT INR APTT POC ABG pH POC ABG pCO2 POC ABG pO2 Sodium 132 L Potassium Chloride 92.4 L Carbon Dioxide BUN 77 H Creatinine 5.9 H Glucose POC Glucose 122 H Lactic Acid Calcium 7.3 L Phosphorus 6.40 H D Magnesium Iron TIBC AST ALT Alkaline Phosphatase Total Creatine Kinase C-Reactive Protein Total Protein Albumin Folate PTH Intact Urine WBC (Auto) Urine Creatinine Urine Chloride Urine Total Protein Vancomycin Trough Crossmatch 05/31/18 05/31/18 05/31/18 05:45 11:37 17:52 WBC RBC Hgb Hct MCHC RDW Lymph % (Auto) [place] % (Auto) Lymph # [place] # Seg Neutrophils % Seg Neuts % (Manual) Lymphocytes % (Manual) Seg Neutrophils # Seg Neutrophils # Man Lymphocytes # (Manual) PT INR APTT POC ABG pH POC ABG pCO2 POC ABG pO2 Sodium Potassium Chloride Carbon Dioxide BUN Creatinine Glucose POC Glucose 111 H 136 H 115 H Lactic Acid Calcium Phosphorus Magnesium Iron TIBC AST ALT Alkaline Phosphatase Total Creatine Kinase C-Reactive Protein Total Protein Albumin Folate PTH Intact Urine WBC (Auto) Urine Creatinine Urine Chloride Urine Total Protein Vancomycin Trough Crossmatch 06/01/18 06/01/18 00:09 04:00 WBC RBC Hgb Hct MCHC RDW Lymph % (Auto) [place] % (Auto) Lymph # [place] # Seg Neutrophils % Seg Neuts % (Manual) Lymphocytes % (Manual) Seg Neutrophils # Seg Neutrophils # Man Lymphocytes # (Manual) PT INR APTT POC ABG pH POC ABG pCO2 POC ABG pO2 Sodium Potassium Chloride 97.5 L Carbon Dioxide BUN 49 H Creatinine 4.2 H Glucose 104 H POC Glucose 114 H Lactic Acid Calcium 7.3 L Phosphorus 4.70 H D Magnesium Iron TIBC AST ALT Alkaline Phosphatase Total Creatine Kinase C-Reactive Protein Total Protein Albumin Folate PTH Intact Urine WBC (Auto) Urine Creatinine Urine Chloride Urine Total Protein Vancomycin Trough Crossmatch Allied health notes reviewed: nursing
--- NOTE | 2018-06-01 13:06 | Hem/Onc Progress Note ---
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 Ultrasound Kidneys showed bilat hydronephrosis CT Abd shows Pelvic mass with multiple large lymph nodes Had bilateral nephrostomy tubes placed 05/14/[address] Freeman. abnormal renal function - HD - as per nephrology #Acute DVT right leg - below knee No anticoagulation for now because of bilateral nephrostomy tubes and abdo issues. 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 Ct chest was done - CTA - no PE d/w pathology 06/01 - no tissue from 05/26 - Patient Problems (1) Pelvic mass in male Current Visit: Yes Status: Acute Subjective Date of service: 06/01/18 Principal diagnosis: sq cell ca Interval history: pt in critical unit - extubated pt had diverting colostomy 05/26 central line in neck has colostomy - nephrostomy and abdo drain no BM in stomy d/w path - no sample from 05/26 Objective - Constitutional Vitals: Last Vital Signs Temp 97.3 F L 06/01/18 12:00 Pulse 115 H 06/01/18 12:00 Resp 24 06/01/18 12:00 BP 132/85 06/01/18 12:00 Pulse Ox 97 06/01/18 12:00 Pain Intensity (0-10): 2/10 General appearance: mild distress Performance status: 4-completely disabled - EENT Eyes: PERRL Lymph node exam: negative cervical, negative supraclavicular - Respiratory Respiratory effort: Positive: normal Respiratory: bilateral: CTA - Cardiovascular Heart Sounds: Present: S1 & S2 Extremities: No edema - Gastrointestinal General gastrointestinal: Present: soft, other (colostomy) Rectal Exam: deferred - Genitourinary Male genitourinary: Present: deferred - Neurologic Neurologic: moves all extremities - Labs Lab Results: Laboratory Results - last 24 hr 05/31/18 06/01/18 06/01/18 17:52 00:09 04:00 Sodium 137 Potassium 4.0 Chloride 97.5 L Carbon Dioxide 24 Anion Gap 20 BUN 49 H Creatinine 4.2 H Estimated GFR 18 BUN/Creatinine Ratio 12 Glucose 104 H POC Glucose 115 H 114 H Calcium 7.3 L Phosphorus 4.70 H D Magnesium 1.80 06/01/18 06/01/18 05:52 11:10 Sodium Potassium Chloride Carbon Dioxide Anion Gap BUN Creatinine Estimated GFR BUN/Creatinine Ratio Glucose POC Glucose 92 123 H Calcium Phosphorus Magnesium
--- NOTE | 2018-06-01 13:27 | Progress Note ---
<RANCHO DAVIS - Last Filed: 06/01/18 18:09> Assessment and Plan Assessment and plan: 1. Acute hypoxemic respiratory failure( post extubation day 2) Tolerate extubation, O2 sat stable on O2 via N/C 2. Bilateral pneumonia (possibly aspiration) Monitor respiratory status Nebs PRN 3. Sepsis syndrome On cefepime, metrodazole 4. Acute kidney injury (obstructive uropathy vrs contrast nephropathy) post HD today day#3 BMP in am Continue to monitor kidney fuction 5. Pelvic mass (primary unknow, s/p surgery, abdomen distended tender) Abdominal US, positive for large amount of fluid collection, ascites Need consult with IR for paracentesis Will discuss with attending/pulmonary Continue pain control PRN 6. Leukocytosis( likely due to sepsis) Continue Cefepime Monitor CBC in am 7. Acute deep venous thrombosis Anticoagulant with Heparin continue 8. Moderate to severe protein calorie malnutrition On tube feeding 9. Anemia, normocytic. (ABLA) Continue to monitor pt's condition Keep in ICU per pulmonary Continue pain control PRN Continue supportive care History Interval history: Pt is supine in bed awake, post extubation , no acute distress, denies any pain or discomfort, reports releif from IV morphine PRN. Hospitalist Physical - Constitutional Vitals: Temp Pulse Resp BP Pulse Ox 97.3 F L 115 H 24 132/85 97 06/01/18 12:00 06/01/18 12:00 06/01/18 12:00 06/01/18 12:00 06/01/18 12:00 General appearance: Present: mild distress, cachectic - EENT Eyes: Present: EOM intact - Neck Neck: Present: normal ROM - Respiratory Respiratory effort: normal - Cardiovascular Rhythm: regular - Extremities Extremities: No edema Peripheral Pulses: within normal limits - Abdominal General gastrointestinal: tender, distended - Integumentary Integumentary: Present: warm, dry - Psychiatric Psychiatric: appropriate mood/affect Results - Labs CBC & Chem 7: 05/31/18 04:50 06/01/18 04:00 Labs: Laboratory Last Values WBC 18.7 K/mm3 (4.5-11.0) H 05/31/18 04:50 RBC 2.86 M/mm3 (3.65-5.03) L 05/31/18 04:50 Hgb 8.2 gm/dl (11.8-15.2) L 05/31/18 04:50 Hct 24.8 % (35.5-45.6) L 05/31/18 04:50 MCV 87 fl (84-94) 05/31/18 04:50 MCH 29 pg (28-32) 05/31/18 04:50 MCHC 33 % (32-34) 05/31/18 04:50 RDW 14.9 % (13.2-15.2) 05/31/18 04:50 Plt Count 392 K/mm3 (140-440) 05/31/18 04:50 Lymph % (Auto) Help Desk Operator 05/28/18 05:00 Patrick % (Auto) Help Desk Operator 05/28/18 05:00 Eos % (Auto) Help Desk Operator 05/28/18 05:00 Baso % (Auto) Help Desk Operator 05/28/18 05:00 Lymph # Help Desk Operator 05/28/18 05:00 Patrick # Help Desk Operator 05/28/18 05:00 Eos # Help Desk Operator 05/28/18 05:00 Baso # Help Desk Operator 05/28/18 05:00 Add Manual Diff Complete 05/31/18 04:50 Total Counted 100 05/31/18 04:50 Seg Neutrophils % Help Desk Operator 05/28/18 05:00 Seg Neuts % (Manual) 91.0 % (40.0-70.0) H 05/31/18 04:50 Band Neutrophils % 2.0 % 05/31/18 04:50 Lymphocytes % (Manual) 2.0 % (13.4-35.0) L 05/31/18 04:50 Reactive Lymphs % (Man) 0 % 05/31/18 04:50 Monocytes % (Manual) 2.0 % (0.0-7.3) 05/31/18 04:50 Eosinophils % (Manual) 1.0 % (0.0-4.3) 05/31/18 04:50 Basophils % (Manual) 0 % (0.0-1.8) 05/31/18 04:50 Metamyelocytes % 1.0 % 05/31/18 04:50 Myelocytes % 1.0 % 05/31/18 04:50 Promyelocytes % 0 % 05/31/18 04:50 Blast Cells % 0 % 05/31/18 04:50 Nucleated RBC % Not Reportable 05/31/18 04:50 Seg Neutrophils # Help Desk Operator 05/28/18 05:00 Seg Neutrophils # Man 17.0 K/mm3 (1.8-7.7) H 05/31/18 04:50 Band Neutrophils # 0.4 K/mm3 05/31/18 04:50 Lymphocytes # (Manual) 0.4 K/mm3 (1.2-5.4) L 05/31/18 04:50 Abs React Lymphs (Man) 0.0 K/mm3 05/31/18 04:50 Monocytes # (Manual) 0.4 K/mm3 (0.0-0.8) 05/31/18 04:50 Eosinophils # (Manual) 0.2 K/mm3 (0.0-0.4) 05/31/18 04:50 Basophils # (Manual) 0.0 K/mm3 (0.0-0.1) 05/31/18 04:50 Metamyelocytes # 0.2 K/mm3 05/31/18 04:50 Myelocytes # 0.2 K/mm3 05/31/18 04:50 Promyelocytes # 0.0 K/mm3 05/31/18 04:50 Blast Cells # 0.0 K/mm3 05/31/18 04:50 WBC Morphology Not Reportable 05/31/18 04:50 Hypersegmented Neuts Not Reportable 05/31/18 04:50 Hyposegmented Neuts Not Reportable 05/31/18 04:50 Hypogranular Neuts Not Reportable 05/31/18 04:50 Smudge Cells Not Reportable 05/31/18 04:50 Toxic Granulation Not Reportable 05/31/18 04:50 Toxic Vacuolation Not Reportable 05/31/18 04:50 Dohle Bodies Not Reportable 05/31/18 04:50 Pelger-Huet Anomaly Not Reportable 05/31/18 04:50 Mahesh Rods Not Reportable 05/31/18 04:50 Platelet Estimate Appears normal 05/31/18 04:50 Clumped Platelets Not Reportable 05/31/18 04:50 Plt Clumps, EDTA Not Reportable 05/31/18 04:50 Large Platelets Not Reportable 05/31/18 04:50 Giant Platelets Not Reportable 05/31/18 04:50 Platelet Satelliting Not Reportable 05/31/18 04:50 Plt Morphology Comment Not Reportable 05/31/18 04:50 RBC Morphology Not Reportable 05/31/18 04:50 Dimorphic RBCs Not Reportable 05/31/18 04:50 Polychromasia Not Reportable 05/31/18 04:50 Hypochromasia Few 05/31/18 04:50 Poikilocytosis Not Reportable 05/31/18 04:50 Anisocytosis 1+ 05/31/18 04:50 Microcytosis Few 05/31/18 04:50 Macrocytosis Not Reportable 05/31/18 04:50 Spherocytes Not Reportable 05/31/18 04:50 Pappenheimer Bodies Not Reportable 05/31/18 04:50 Sickle Cells Not Reportable 05/31/18 04:50 Target Cells Rare 05/31/18 04:50 Tear Drop Cells Not Reportable 05/31/18 04:50 Ovalocytes 1+ 05/31/18 04:50 Helmet Cells Not Reportable 05/31/18 04:50 Hernandez-White Water Bodies Not Reportable 05/31/18 04:50 Nekoma Rings Not Reportable 05/31/18 04:50 Palmer Cells Not Reportable 05/31/18 04:50 Bite Cells Not Reportable 05/31/18 04:50 Crenated Cell Not Reportable 05/31/18 04:50 Elliptocytes Not Reportable 05/31/18 04:50 Acanthocytes (Spur) Not Reportable 05/31/18 04:50 Rouleaux Not Reportable 05/31/18 04:50 Hemoglobin C Crystals Not Reportable 05/31/18 04:50 Schistocytes Not Reportable 05/31/18 04:50 Malaria parasites Not Reportable 05/31/18 04:50 Mk Bodies Not Reportable 05/31/18 04:50 Hem Pathologist Commnt No 05/31/18 04:50 PT 18.3 Sec. (12.2-14.9) H 05/23/18 09:03 INR 1.43 (0.87-1.13) H 05/23/18 09:03 APTT 40.0 Sec. (24.2-36.6) H 05/23/18 09:03 POC ABG pH 7.362 (7.35-7.45) 05/31/18 09:58 POC ABG pCO2 36.4 (35-45) 05/31/18 09:58 POC ABG pO2 101 (80-105) 05/31/18 09:58 POC ABG HCO3 20.7 05/31/18 09:58 POC ABG Total CO2 22 05/31/18 09:58 POC ABG O2 Sat 98 05/31/18 09:58 POC ABG Base Excess -5 09 09:58 FiO2 40 % 05/31/18 09:58 Sodium 137 mmol/L (137-145) 06/01/18 04:00 Potassium 4.0 mmol/L (3.6-5.0) 06/01/18 04:00 Chloride 97.5 mmol/L (98-107) L 06/01/18 04:00 Carbon Dioxide 24 mmol/L (22-30) 06/01/18 04:00 Anion Gap 20 mmol/L 06/01/18 04:00 BUN 49 mg/dL (9-20) H 06/01/18 04:00 Creatinine 4.2 mg/dL (0.8-1.5) H 06/01/18 04:00 Estimated GFR 18 ml/min 06/01/18 04:00 BUN/Creatinine Ratio 12 % 06/01/18 04:00 Glucose 104 mg/dL (75-100) H 06/01/18 04:00 POC Glucose 123 (70-105) H 06/01/18 11:10 Hemoglobin A1c 5.7 % (4-6) 05/14/18 05:05 Lactic Acid 3.80 mmol/L (0.7-2.0) H* 05/26/18 11:00 Calcium 7.3 mg/dL (8.4-10.2) L 06/01/18 04:00 Phosphorus 4.70 mg/dL (2.5-4.5) H D 06/01/18 04:00 Magnesium 1.80 mg/dL (1.7-2.3) 06/01/18 04:00 Iron 24 ug/dL (49-181) L 05/16/18 07:02 TIBC 160 mcg/dL (250-450) L 05/16/18 07:02 Ferritin 325.8 ng/mL (13.0-400.0) 05/16/18 07:02 Total Bilirubin 1.00 mg/dL (0.1-1.2) 05/29/18 04:00 AST 218 units/L (5-40) H 05/29/18 04:00 ALT 204 units/L (7-56) H 05/29/18 04:00 Alkaline Phosphatase 91 units/L (35-129) 05/29/18 04:00 Total Creatine Kinase 156 units/L (55-170) 05/25/18 22:46 CK-MB (CK-2) 2.3 ng/mL (0.0-4.0) 05/25/18 22:46 CK-MB (CK-2) Rel Index 1.4 (0-4) 05/25/18 22:46 C-Reactive Protein 40.70 mg/dL (0.00-1.30) H 05/27/18 10:22 Total Protein 5.4 g/dL (6.3-8.2) L 05/29/18 04:00 Albumin 1.6 g/dL (3.9-5) L 05/29/18 04:00 Albumin/Globulin Ratio 0.4 % 05/29/18 04:00 Prostate Specific Ag 0.96 ng/mL (0.00-4.00) 05/14/18 13:29 Vitamin B12 359.2 pg/mL (211-911) 05/16/18 07:02 Folate 5.39 ng/mL (7.3-26.0) L 05/16/18 07:02 TSH 3.180 mlU/mL (0.270-4.200) 05/14/18 05:05 PTH Intact 65.37 pg/mL (15-65) H 05/14/18 05:05 Urine Color Maria Del Rosario (Yellow) 05/27/18 Unknown Urine Turbidity Cloudy (Clear) 05/27/18 Unknown Urine pH 5.0 (5.0-7.0) 05/27/18 Unknown Ur Specific [place] 1.026 (1.003-1.030) 05/27/18 Unknown Urine Protein 100 mg/dl mg/dL (Negative) 05/27/18 Unknown Urine Glucose (UA) 50 mg/dL (Negative) 05/27/18 Unknown Urine Ketones Neg mg/dL (Negative) 05/27/18 Unknown Urine Blood Lg (Negative) 05/27/18 Unknown Urine Nitrite Neg (Negative) 05/27/18 Unknown Urine Bilirubin Neg (Negative) 05/27/18 Unknown Urine Urobilinogen < 2.0 mg/dL (<2.0) 05/27/18 Unknown Ur Leukocyte Esterase Mod (Negative) 05/27/18 Unknown Urine WBC (Auto) 120.0 /HPF (0.0-6.0) H 05/27/18 Unknown Urine RBC (Auto) 35.0 /HPF (0.0-6.0) 05/27/18 Unknown U Epithel Cells (Auto) 3.0 /HPF (0-13.0) 05/27/18 Unknown Urine Bacteria (Auto) 1+ /HPF (Negative) 05/27/18 Unknown Urine WBC Clumps Few /HPF 05/13/18 19:39 Urine Mucus Few /HPF 05/27/18 Unknown Urine Yeast (Budding) 2+ /HPF 05/21/18 15:30 Urine Creatinine 66.0 mg/dL (0.1-20.0) H 05/13/18 19:39 Urine Sodium 60 mmol/L 05/13/18 19:39 Urine Potassium 8.69 mmol/L 05/13/18 19:39 Urine Chloride 27.8 mmolL (110-250) L 05/13/18 19:39 Urine Total Protein 24 mg/dL (5-11.8) H 05/13/18 19:39 Vancomycin Trough 25.1 ug/mL (5.0-20.0) H 05/25/18 22:46 Random Vancomycin 34.3 ug/mL (0-40.0) 05/26/18 11:01 Urine Opiates Screen Presumptive negative 05/13/18 19:39 Urine Methadone Screen Presumptive negative 05/13/18 19:39 Ur Barbiturates Screen Presumptive negative 05/13/18 19:39 Ur Phencyclidine Scrn Presumptive negative 05/13/18 19:39 Ur Amphetamines Screen Presumptive negative 05/13/18 19:39 U Benzodiazepines Scrn Presumptive negative 05/13/18 19:39 Urine Cocaine Screen Presumptive negative 05/13/18 19:39 U Marijuana (THC) Screen Presumptive negative 05/13/18 19:39 Drugs of Abuse Note Disclamer 05/13/18 19:39 ZEUS Screen Negative (Negative) 05/14/18 05:05 Proteinase 3 (PR3) Ab <1.0 AI (<1.0) 05/14/18 05:05 Myeloperoxidase Ab <1.0 AI (<1.0) 05/14/18 05:05 Complement C3 147 mg/dL (82-185) 05/14/18 05:05 Complement C4 45 mg/dL (15-53) 05/14/18 05:05 Hepatitis A IgM Ab Nonreactive (NonReactive) 05/27/18 13:41 Hep Bs Antigen Non-reactive (Negative) 05/27/18 13:41 Hep B Core IgM Ab Non-reactive (NonReactive) 05/27/18 13:41 Hepatitis C Antibody Non-reactive (NonReactive) 05/27/18 13:41 Blood Type O POSITIVE 05/22/18 11:23 Antibody Screen Negative 05/22/18 11:23 Crossmatch See Detail 05/22/18 11:23 <TRESSA WASHINGTON R - Last Filed: 06/02/18 07:31> Assessment and Plan Assessment and plan: I saw and evaluated the patient. I agree with the findings and the plan of care as documented in the Nurse Practitioner's~note, with the following corrections and additions. Hospitalist Physical - Constitutional Vitals: Temp Pulse Resp BP Pulse Ox 98.3 F 109 H 26 H 156/97 96 06/02/18 04:00 06/02/18 05:00 06/02/18 05:00 06/02/18 05:00 06/02/18 05:00 Results - Labs CBC & Chem 7: 05/31/18 04:50 06/01/18 04:00 Labs: Laboratory Last Values WBC 18.7 K/mm3 (4.5-11.0) H 05/31/18 04:50 RBC 2.86 M/mm3 (3.65-5.03) L 05/31/18 04:50 Hgb 8.2 gm/dl (11.8-15.2) L 05/31/18 04:50 Hct 24.8 % (35.5-45.6) L 05/31/18 04:50 MCV 87 fl (84-94) 05/31/18 04:50 MCH 29 pg (28-32) 05/31/18 04:50 MCHC 33 % (32-34) 05/31/18 04:50 RDW 14.9 % (13.2-15.2) 05/31/18 04:50 Plt Count 392 K/mm3 (140-440) 05/31/18 04:50 Lymph % (Auto) Help Desk Operator 05/28/18 05:00 Patrick % (Auto) Help Desk Operator 05/28/18 05:00 Eos % (Auto) Help Desk Operator 05/28/18 05:00 Baso % (Auto) Help Desk Operator 05/28/18 05:00 Lymph # Help Desk Operator 05/28/18 05:00 Patrick # Help Desk Operator 05/28/18 05:00 Eos # Help Desk Operator 05/28/18 05:00 Baso # Help Desk Operator 05/28/18 05:00 Add Manual Diff Complete 05/31/18 04:50 Total Counted 100 05/31/18 04:50 Seg Neutrophils % Help Desk Operator 05/28/18 05:00 Seg Neuts % (Manual) 91.0 % (40.0-70.0) H 05/31/18 04:50 Band Neutrophils % 2.0 % 05/31/18 04:50 Lymphocytes % (Manual) 2.0 % (13.4-35.0) L 05/31/18 04:50 Reactive Lymphs % (Man) 0 % 05/31/18 04:50 Monocytes % (Manual) 2.0 % (0.0-7.3) 05/31/18 04:50 Eosinophils % (Manual) 1.0 % (0.0-4.3) 05/31/18 04:50 Basophils % (Manual) 0 % (0.0-1.8) 05/31/18 04:50 Metamyelocytes % 1.0 % 05/31/18 04:50 Myelocytes % 1.0 % 05/31/18 04:50 Promyelocytes % 0 % 05/31/18 04:50 Blast Cells % 0 % 05/31/18 04:50 Nucleated RBC % Not Reportable 05/31/18 04:50 Seg Neutrophils # Help Desk Operator 05/28/18 05:00 Seg Neutrophils # Man 17.0 K/mm3 (1.8-7.7) H 05/31/18 04:50 Band Neutrophils # 0.4 K/mm3 05/31/18 04:50 Lymphocytes # (Manual) 0.4 K/mm3 (1.2-5.4) L 05/31/18 04:50 Abs React Lymphs (Man) 0.0 K/mm3 05/31/18 04:50 Monocytes # (Manual) 0.4 K/mm3 (0.0-0.8) 05/31/18 04:50 Eosinophils # (Manual) 0.2 K/mm3 (0.0-0.4) 05/31/18 04:50 Basophils # (Manual) 0.0 K/mm3 (0.0-0.1) 05/31/18 04:50 Metamyelocytes # 0.2 K/mm3 05/31/18 04:50 Myelocytes # 0.2 K/mm3 05/31/18 04:50 Promyelocytes # 0.0 K/mm3 05/31/18 04:50 Blast Cells # 0.0 K/mm3 05/31/18 04:50 WBC Morphology Not Reportable 05/31/18 04:50 Hypersegmented Neuts Not Reportable 05/31/18 04:50 Hyposegmented Neuts Not Reportable 05/31/18 04:50 Hypogranular Neuts Not Reportable 05/31/18 04:50 Smudge Cells Not Reportable 05/31/18 04:50 Toxic Granulation Not Reportable 05/31/18 04:50 Toxic Vacuolation Not Reportable 05/31/18 04:50 Dohle Bodies Not Reportable 05/31/18 04:50 Pelger-Huet Anomaly Not Reportable 05/31/18 04:50 Mahesh Rods Not Reportable 05/31/18 04:50 Platelet Estimate Appears normal 05/31/18 04:50 Clumped Platelets Not Reportable 05/31/18 04:50 Plt Clumps, EDTA Not Reportable 05/31/18 04:50 Large Platelets Not Reportable 05/31/18 04:50 Giant Platelets Not Reportable 05/31/18 04:50 Platelet Satelliting Not Reportable 05/31/18 04:50 Plt Morphology Comment Not Reportable 05/31/18 04:50 RBC Morphology Not Reportable 05/31/18 04:50 Dimorphic RBCs Not Reportable 05/31/18 04:50 Polychromasia Not Reportable 05/31/18 04:50 Hypochromasia Few 05/31/18 04:50 Poikilocytosis Not Reportable 05/31/18 04:50 Anisocytosis 1+ 05/31/18 04:50 Microcytosis Few 05/31/18 04:50 Macrocytosis Not Reportable 05/31/18 04:50 Spherocytes Not Reportable 05/31/18 04:50 Pappenheimer Bodies Not Reportable 05/31/18 04:50 Sickle Cells Not Reportable 05/31/18 04:50 Target Cells Rare 05/31/18 04:50 Tear Drop Cells Not Reportable 05/31/18 04:50 Ovalocytes 1+ 05/31/18 04:50 Helmet Cells Not Reportable 05/31/18 04:50 Hernandez-[place] Bodies Not Reportable 05/31/18 04:50 Nekoma Rings Not Reportable 05/31/18 04:50 Palmer Cells Not Reportable 05/31/18 04:50 Bite Cells Not Reportable 05/31/18 04:50 Crenated Cell Not Reportable 05/31/18 04:50 Elliptocytes Not Reportable 05/31/18 04:50 Acanthocytes (Spur) Not Reportable 05/31/18 04:50 Rouleaux Not Reportable 05/31/18 04:50 Hemoglobin C Crystals Not Reportable 05/31/18 04:50 Schistocytes Not Reportable 05/31/18 04:50 Malaria parasites Not Reportable 05/31/18 04:50 Mk Bodies Not Reportable 05/31/18 04:50 Hem Pathologist Commnt No 05/31/18 04:50 PT 18.3 Sec. (12.2-14.9) H 05/23/18 09:03 INR 1.43 (0.87-1.13) H 05/23/18 09:03 APTT 40.0 Sec. (24.2-36.6) H 05/23/18 09:03 POC ABG pH 7.362 (7.35-7.45) 05/31/18 09:58 POC ABG pCO2 36.4 (35-45) 05/31/18 09:58 POC ABG pO2 101 (80-105) 05/31/18 09:58 POC ABG HCO3 20.7 05/31/18 09:58 POC ABG Total CO2 22 05/31/18 09:58 POC ABG O2 Sat 98 05/31/18 09:58 POC ABG Base Excess -5 05/31/18 09:58 FiO2 40 % 05/31/18 09:58 Sodium 137 mmol/L (137-145) 06/01/18 04:00 Potassium 4.0 mmol/L (3.6-5.0) 06/01/18 04:00 Chloride 97.5 mmol/L (98-107) L 06/01/18 04:00 Carbon Dioxide 24 mmol/L (22-30) 06/01/18 04:00 Anion Gap 20 mmol/L 06/01/18 04:00 BUN 49 mg/dL (9-20) H 06/01/18 04:00 Creatinine 4.2 mg/dL (0.8-1.5) H 06/01/18 04:00 Estimated GFR 18 ml/min 06/01/18 04:00 BUN/Creatinine Ratio 12 % 06/01/18 04:00 Glucose 104 mg/dL (75-100) H 06/01/18 04:00 POC Glucose 135 (70-105) H 06/02/18 05:23 Hemoglobin A1c 5.7 % (4-6) 05/14/18 05:05 Lactic Acid 3.80 mmol/L (0.7-2.0) H* 05/26/18 11:00 Calcium 7.3 mg/dL (8.4-10.2) L 06/01/18 04:00 Phosphorus 4.70 mg/dL (2.5-4.5) H D 06/01/18 04:00 Magnesium 1.80 mg/dL (1.7-2.3) 06/01/18 04:00 Iron 24 ug/dL (49-181) L 05/16/18 07:02 TIBC 160 mcg/dL (250-450) L 05/16/18 07:02 Ferritin 325.8 ng/mL (13.0-400.0) 05/16/18 07:02 Total Bilirubin 1.00 mg/dL (0.1-1.2) 05/29/18 04:00 AST 218 units/L (5-40) H 05/29/18 04:00 ALT 204 units/L (7-56) H 05/29/18 04:00 Alkaline Phosphatase 91 units/L (35-129) 05/29/18 04:00 Total Creatine Kinase 156 units/L (55-170) 05/25/18 22:46 CK-MB (CK-2) 2.3 ng/mL (0.0-4.0) 05/25/18 22:46 CK-MB (CK-2) Rel Index 1.4 (0-4) 05/25/18 22:46 C-Reactive Protein 40.70 mg/dL (0.00-1.30) H 05/27/18 10:22 Total Protein 5.4 g/dL (6.3-8.2) L 05/29/18 04:00 Albumin 1.6 g/dL (3.9-5) L 05/29/18 04:00 Albumin/Globulin Ratio 0.4 % 05/29/18 04:00 Prostate Specific Ag 0.96 ng/mL (0.00-4.00) 05/14/18 13:29 Vitamin B12 359.2 pg/mL (211-911) 05/16/18 07:02 Folate 5.39 ng/mL (7.3-26.0) L 05/16/18 07:02 TSH 3.180 mlU/mL (0.270-4.200) 05/14/18 05:05 PTH Intact 65.37 pg/mL (15-65) H 05/14/18 05:05 Urine Color Maria Del Rosario (Yellow) 05/27/18 Unknown Urine Turbidity Cloudy (Clear) 05/27/18 Unknown Urine pH 5.0 (5.0-7.0) 05/27/18 Unknown Ur Specific [place] 1.026 (1.003-1.030) 05/27/18 Unknown Urine Protein 100 mg/dl mg/dL (Negative) 05/27/18 Unknown Urine Glucose (UA) 50 mg/dL (Negative) 05/27/18 Unknown Urine Ketones Neg mg/dL (Negative) 05/27/18 Unknown Urine Blood Lg (Negative) 05/27/18 Unknown Urine Nitrite Neg (Negative) 05/27/18 Unknown Urine Bilirubin Neg (Negative) 05/27/18 Unknown Urine Urobilinogen < 2.0 mg/dL (<2.0) 05/27/18 Unknown Ur Leukocyte Esterase Mod (Negative) 05/27/18 Unknown Urine WBC (Auto) 120.0 /HPF (0.0-6.0) H 05/27/18 Unknown Urine RBC (Auto) 35.0 /HPF (0.0-6.0) 05/27/18 Unknown U Epithel Cells (Auto) 3.0 /HPF (0-13.0) 05/27/18 Unknown Urine Bacteria (Auto) 1+ /HPF (Negative) 05/27/18 Unknown Urine WBC Clumps Few /HPF 05/13/18 19:39 Urine Mucus Few /HPF 05/27/18 Unknown Urine Yeast (Budding) 2+ /HPF 05/21/18 15:30 Urine Creatinine 66.0 mg/dL (0.1-20.0) H 05/13/18 19:39 Urine Sodium 60 mmol/L 05/13/18 19:39 Urine Potassium 8.69 mmol/L 05/13/18 19:39 Urine Chloride 27.8 mmolL (110-250) L 05/13/18 19:39 Urine Total Protein 24 mg/dL (5-11.8) H 05/13/18 19:39 Vancomycin Trough 25.1 ug/mL (5.0-20.0) H 05/25/18 22:46 Random Vancomycin 34.3 ug/mL (0-40.0) 05/26/18 11:01 Urine Opiates Screen Presumptive negative 05/13/18 19:39 Urine Methadone Screen Presumptive negative 05/13/18 19:39 Ur Barbiturates Screen Presumptive negative 05/13/18 19:39 Ur Phencyclidine Scrn Presumptive negative 05/13/18 19:39 Ur Amphetamines Screen Presumptive negative 05/13/18 19:39 U Benzodiazepines Scrn Presumptive negative 05/13/18 19:39 Urine Cocaine Screen Presumptive negative 05/13/18 19:39 U Marijuana (THC) Screen Presumptive negative 05/13/18 19:39 Drugs of Abuse Note Disclamer 05/13/18 19:39 ZEUS Screen Negative (Negative) 05/14/18 05:05 Proteinase 3 (PR3) Ab <1.0 AI (<1.0) 05/14/18 05:05 Myeloperoxidase Ab <1.0 AI (<1.0) 05/14/18 05:05 Complement C3 147 mg/dL (82-185) 05/14/18 05:05 Complement C4 45 mg/dL (15-53) 05/14/18 05:05 Hepatitis A IgM Ab Nonreactive (NonReactive) 05/27/18 13:41 Hep Bs Antigen Non-reactive (Negative) 05/27/18 13:41 Hep B Core IgM Ab Non-reactive (NonReactive) 05/27/18 13:41 Hepatitis C Antibody Non-reactive (NonReactive) 05/27/18 13:41 Blood Type O POSITIVE 05/22/18 11:23 Antibody Screen Negative 05/22/18 11:23 Crossmatch See Detail 05/22/18 11:23
--- NOTE | 2018-06-01 15:54 | Progress Note ---
Assessment and Plan Assessment: 1) Sepsis: fever resolved, leukocytosis is better. Etiology unclear - most likely necrotic malignancy ? abscess +/- UTI +/- LLL pneumonia -Blood cx 05/15 neg, 05/20 neg, 05/26 neg -CRP=40 2) Complicated UTI: repeat UA 05/21 28 wbc, trace LE. 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 Enlarged pelvic lymph nodes, bilateral hydronephrosis. -S/p 05/14/18 left and right nephrostomy tube placements and mass biopsy -S/p 05/18/2018 cystoscopy with right great toe pyelogram found to have a bladder mass and prostate mass -S/p 05/26/18 diverting colostomy. Intrabdominal cx + Bacteroides fragilis 4) LLL pneumonia, sputum cx + Yeast 5) MARYLOU 6) Weight loss Plan: -follow-up procalcitonin -repeat CRP -continue cefepime, flagyl D6 -upon discharge will do 2-3 weeks IV abx -remove femoral HD access -monitor fever -agree with repeat CT abd w methylene blue to r/o leak Discussed with charge nurse I am rounding on 06/03 Thank you for your consultation, will follow up with you. Sugey Garcia MD Infectious Diseases Specialist [facility] ([facility]) M [phone] O [phone] Subjective Date of service: 06/01/18 Principal diagnosis: squamous cell ca - prostate bx - prelim report Interval history: More alert communicating extubated. No fever Microbiology: Blood cultures: 05/15 neg 05/20 neg 05/26 ngtd Urine cultures: 05/21 neg 05/27 neg Sputum: 05/27 yeast OR cultures: 05/26 Bacteroides fragilis Current Antimicrobials: 05/27 cefepime, flagyl Previous Antimicrobials: Zosyn 05/19 zyvox Levaquin 05/26 Objective - Exam Narrative Exam: General appearance: Alert in NAD, nonconversant Eyes: anicteric sclerae, moist conjunctivae; no lid-lag; PERRLA HENT: Atraumatic; oropharynx +EET +NGT. Normal external ears. +temporal wasting Neck: Trachea midline; supple, no thyromegaly or lymphadenopathy Lungs: amy rhonchi CV: RRR, no murmurs Abdomen: Soft, +diverting colostomy +multiple drains and amy PC nephros Extremities: No peripheral edema or extremity lymphadenopathy Skin: Normal temperature, turgor and texture; no rash, ulcers or subcutaneous nodules Psych: sedated. Neuro: sedated Lines: right fem line, right IJ - Constitutional Vitals: Vital Signs Temp Pulse Resp BP Pulse Ox 97.3 F L 115 H 24 132/85 97 06/01/18 12:00 06/01/18 12:00 06/01/18 12:00 06/01/18 12:00 06/01/18 12:00 Temperature -Last 24 Hours Temperature 97.3 F Temperature 97.3 F Temperature 98.7 F Temperature 97.6 F Temperature 99.4 F Temperature 99.6 F Temperature 98.6 F - Labs CBC & Chem 7: 05/31/18 04:50 06/01/18 04:00 Labs: Abnormal lab results 05/31/18 06/01/18 06/01/18 Range/Units 17:52 00:09 04:00 Chloride 97.5 L (98-107) mmol/L BUN 49 H (9-20) mg/dL Creatinine 4.2 H (0.8-1.5) mg/dL Glucose 104 H (75-100) mg/dL POC Glucose 115 H 114 H (70-105) Calcium 7.3 L (8.4-10.2) mg/dL Phosphorus 4.70 H D (2.5-4.5) mg/dL 06/01/18 Range/Units 11:10 Chloride (98-107) mmol/L BUN (9-20) mg/dL Creatinine (0.8-1.5) mg/dL Glucose (75-100) mg/dL POC Glucose 123 H (70-105) Calcium (8.4-10.2) mg/dL Phosphorus (2.5-4.5) mg/dL
--- NOTE | 2018-06-01 15:55 | Ultrasound Report ---
FINAL REPORT EXAM: US ABDOMEN LIMITED HISTORY: abdominal distention TECHNIQUE: Limited abdomen ultrasound. PRIORS: None currently available. FINDINGS: Ascites in all 4 quadrants. Largest pocket of fluid in the left lower quadrant. IMPRESSION: Ascites.
[2018-06-01] MEDS ORDERED: INTRALIPID 20% 250 ML IV SCH (20:00)
[2018-06-01] MEDS ORDERED: TPN ADULT 2,016 ML IV SCH (20:00)
[2018-06-01] MEDS: MORPHINE IV PRN (20:43)
--- NOTE | 2018-06-01 20:52 | XRay Report ---
FINAL REPORT PROCEDURE: Abdomen. TECHNIQUE: Portable supine AP view. HISTORY: Tube placement. COMPARISON: Abdomen 05/30/2018. FINDINGS: Gas is present within a few loops of small bowel in the central abdomen. The bowel gas pattern is nonspecific. A nasogastric tube enters the stomach. There is a double-lumen right femoral venous catheter that terminates in the inferior vena cava. There are bilateral nephrostomy catheters. The soft tissues are unremarkable. The regional skeleton appears intact. IMPRESSION: Nasogastric tube in the stomach.
[2018-06-02] MEDS: LOPRESSOR IV SCH ×4 (05:14→23:27)
[2018-06-02] MEDS: FLAGYL 500 MG/100 ML 500 MG/100 ML BAG IV SCH ×3 (06:43→23:27)
[2018-06-02] MEDS: HumuLIN R SUB-Q SCH ×3 (06:45→14:13)
[2018-06-02 07:03] LABS: Hemoglobin 7.7 gm/dl (11.8-15.2); Mean Corpuscular HGB Conc 34 % (32-34); Mean Corpuscular Hemoglobin 29 pg (28-32); Mean Corpuscular Volume 86 fl (84-94); Platelet Count 500 K/mm3 (140-440); Red Blood Count 2.67 M/mm3 (3.65-5.03); Red Cell Distribution Width 14.7 % (13.2-15.2)
[2018-06-02 07:31] LABS: Albumin 1.5 g/dL (3.9-5); Calcium 7.2 mg/dL (8.4-10.2)
--- NOTE | 2018-06-02 08:14 | Progress Note ---
Assessment and Plan 1. Acute kidney injury: Recurrent Acute kidney injury. Initial MARYLOU in the setting of bilateral hydronephrosis secondary to pelvic mass , now s/p bilateral nephrostomy. Patient required urgent hemodialysis due to worsening renal function and persistent hyperkalemia. Last dialyzed 2 days ago. HD today. Monitor for HELP DESK INTERN needs. Renal prognosis is guarded. 2. Electrolytes: Hyponatremia, monitor. Hyperkalemia, improved. 3. Bowel obstruction: S/p ostomy. 4. Bilateral hydronephrosis: S/p bilateral nephrostomy. S/p Cysto and drainage of abscess. 5. Respiratory failure: S/p extubated. 6. Hypotension: BP is better. 7. Anemia. 8. 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 Subjective Date of service: 06/02/18 Principal diagnosis: squamous cell ca - prostate bx - prelim report Interval history: Patient was seen and examined at the bedside. Objective - Vital Signs Vital signs: Vital Signs - 12hr 06/01/18 06/01/18 06/01/18 20:30 20:43 21:00 Temperature Pulse Rate 111 H 111 H 108 H Pulse Rate [ From Monitor] Respiratory 33 H 36 H 32 H Rate Blood Pressure 151/90 151/90 144/94 O2 Sat by Pulse 94 100 94 Oximetry 06/01/18 06/01/18 06/01/18 21:30 21:51 22:00 Temperature Pulse Rate 111 H 111 H 101 H Pulse Rate [ From Monitor] Respiratory 34 H 31 H Rate Blood Pressure 143/90 145/89 135/84 O2 Sat by Pulse 87 85 Oximetry 06/01/18 06/01/18 06/01/18 22:30 23:00 23:04 Temperature Pulse Rate 105 H 103 H 107 H Pulse Rate [ From Monitor] Respiratory 34 H 37 H 31 H Rate Blood Pressure 149/95 163/101 163/101 O2 Sat by Pulse 89 97 Oximetry 06/01/18 06/02/18 06/02/18 23:30 00:00 00:30 Temperature 99.0 F Pulse Rate 104 H 108 H 109 H Pulse Rate [ 115 H From Monitor] Respiratory 29 H 26 H 24 Rate Blood Pressure 153/93 152/93 159/95 O2 Sat by Pulse 99 99 Oximetry 06/02/18 06/02/18 06/02/18 01:00 01:30 02:00 Temperature Pulse Rate 111 H 105 H 112 H Pulse Rate [ From Monitor] Respiratory 25 H 23 25 H Rate Blood Pressure 153/97 157/97 157/97 O2 Sat by Pulse 100 100 99 Oximetry 06/02/18 06/02/18 06/02/18 02:30 03:00 03:30 Temperature Pulse Rate 112 H 114 H 110 H Pulse Rate [ From Monitor] Respiratory 29 H 24 22 Rate Blood Pressure 157/100 158/94 154/96 O2 Sat by Pulse 100 Oximetry 06/02/18 06/02/18 06/02/18 04:00 04:02 04:30 Temperature 98.3 F Pulse Rate 111 H 114 H 113 H Pulse Rate [ 111 H From Monitor] Respiratory 28 H 26 H 28 H Rate Blood Pressure 159/97 161/101 158/99 O2 Sat by Pulse 96 99 99 Oximetry 06/02/18 06/02/18 05:00 07:30 Temperature Pulse Rate 109 H Pulse Rate [ From Monitor] Respiratory 26 H Rate Blood Pressure 156/97 O2 Sat by Pulse 96 97 Oximetry - General Appearance General appearance: well-developed, appears stated age, other (NG tube noted, right groin temp catheter) EENT: ATNC, PERRL, mucous membranes dry, hearing intact Neck: supple Respiratory: Present: Clear to Ascultation Cardiology: regular, S1S2, no murmurs Gastrointestinal: normoactive bowel sounds, no tenderness, distended, other ( bilateral nephrostomy tubes, drain and ostomy noted) Integumentary: no rash Neurologic: no focal deficit, no asterixis Musculoskeletal: other (no edema) Psychiatric: cooperative - Lab 06/02/18 Unknown 06/03/18 03:31 Most recent lab results Calcium 7.2 mg/dL (8.4-10.2) L 06/02/18 Unknown Phosphorus 5.00 mg/dL (2.5-4.5) H 06/02/18 Unknown Magnesium 1.90 mg/dL (1.7-2.3) 06/02/18 Unknown Urine Creatinine 66.0 mg/dL (0.1-20.0) H 05/13/18 19:39 Urine Sodium 60 mmol/L 05/13/18 19:39 Urine Total Protein 24 mg/dL (5-11.8) H 05/13/18 19:39
[2018-06-02] MEDS ORDERED: NACL 0.9% 100 ML IV PRN (08:15)
--- NOTE | 2018-06-02 08:48 | Progress Note ---
<RANCHO DAVIS - Last Filed: 06/02/18 15:24> Assessment and Plan Assessment and plan: 1.Abdominal distention/ascites Awaiting Paracentesis today PRBCs on hold post paracentesis for worsening H&H 2. Bilateral pneumonia (possibly aspiration) Monitor respiratory status Continue Nebs PRN Continue antibiotic 3. Sepsis syndrome (wbc worsen, remains afebrile) Continue cefepime, metrodazole 4. Acute kidney injury (obstructive uropathy vrs contrast nephropathy) HD today Repeat BMP in am Continue to monitor kidney fuction 5. Pelvic mass (primary unknow, s/p surgery, abdomen distended tender) Abdominal US, positive for large amount of fluid collection, ascites Need consult with IR for paracentesis Will discuss with attending/pulmonary Continue pain control PRN 6. Leukocytosis( likely due to sepsis) Continue Cefepime Monitor CBC in am 7. Acute deep venous thrombosis Anticoagulant with Heparin continue 8. Moderate to severe protein calorie malnutrition On tube feeding 9. Hypokalemia Potassium and mag replacement today Recheck today 10. Anemia (likey due to CKD, post o[ blood loss) Continue pain control PRN Continue supportive care Transfer to med/tele today History Interval history: Pt is awake & alert, no acute distress,denies any pain or discomfort Hospitalist Physical - Physical exam Narrative exam: Respiration even, unlabor, abdomen is flakeboard line tender and distended awaiting paracenthesis today with radiology. - Constitutional Vitals: Temp Pulse Resp BP Pulse Ox 96.7 F L 109 H 26 H 156/97 97 06/02/18 08:00 06/02/18 05:00 06/02/18 05:00 06/02/18 05:00 06/02/18 07:30 General appearance: Present: mild distress - EENT Eyes: Present: EOM intact - Neck Neck: Present: normal ROM - Respiratory Respiratory: bilateral: CTA - Cardiovascular Rhythm: regular - Extremities Extremities: No edema Peripheral Pulses: within normal limits - Abdominal General gastrointestinal: tender (awaiting), distended (ascites per US), rigid, splenomegaly - Integumentary Integumentary: Present: warm, dry - Psychiatric Psychiatric: appropriate mood/affect, cooperative - Neurologic Neurologic: moves all extremities Results - Labs CBC & Chem 7: 06/02/18 Unknown 06/02/18 Unknown Labs: Laboratory Last Values WBC 20.8 K/mm3 (4.5-11.0) H 06/02/18 Unknown RBC 2.67 M/mm3 (3.65-5.03) L 06/02/18 Unknown Hgb 7.7 gm/dl (11.8-15.2) L 06/02/18 Unknown Hct 23.0 % (35.5-45.6) L 06/02/18 Unknown MCV 86 fl (84-94) 06/02/18 Unknown MCH 29 pg (28-32) 06/02/18 Unknown MCHC 34 % (32-34) 06/02/18 Unknown RDW 14.7 % (13.2-15.2) 06/02/18 Unknown Plt Count 500 K/mm3 (140-440) H 06/02/18 Unknown Lymph % (Auto) Floor [employer] Worker [place] 05/28/18 05:00 Christian % (Auto) Floor Service Worker [place] 05/28/18 05:00 Eos % (Auto) Floor [employer] Worker [place] 05/28/18 05:00 Baso % (Auto) Floor [employer] [place] 05/28/18 05:00 Lymph # Floor [employer]er [place] 05/28/18 05:00 Christian # Floor Service Worker [place] 05/28/18 05:00 Eos # Floor Service Worker [place] 05/28/18 05:00 Baso # Floor Service Worker [place] 05/28/18 05:00 Add Manual Diff Complete 05/31/18 04:50 Total Counted 100 05/31/18 04:50 Seg Neutrophils % Floor [employer] Worker [place] 05/28/18 05:00 Seg Neuts % (Manual) 91.0 % (40.0-70.0) H 05/31/18 04:50 Band Neutrophils % 2.0 % 05/31/18 04:50 Lymphocytes % (Manual) 2.0 % (13.4-35.0) L 05/31/18 04:50 Reactive Lymphs % (Man) 0 % 05/31/18 04:50 Monocytes % (Manual) 2.0 % (0.0-7.3) 05/31/18 04:50 Eosinophils % (Manual) 1.0 % (0.0-4.3) 05/31/18 04:50 Basophils % (Manual) 0 % (0.0-1.8) 05/31/18 04:50 Metamyelocytes % 1.0 % 05/31/18 04:50 Myelocytes % 1.0 % 05/31/18 04:50 Promyelocytes % 0 % 05/31/18 04:50 Blast Cells % 0 % 05/31/18 04:50 Nucleated RBC % Not Reportable 05/31/18 04:50 Seg Neutrophils # Floor Service Worker [place] 05/28/18 05:00 Seg Neutrophils # Man 17.0 K/mm3 (1.8-7.7) H 05/31/18 04:50 Band Neutrophils # 0.4 K/mm3 05/31/18 04:50 Lymphocytes # (Manual) 0.4 K/mm3 (1.2-5.4) L 05/31/18 04:50 Abs React Lymphs (Man) 0.0 K/mm3 05/31/18 04:50 Monocytes # (Manual) 0.4 K/mm3 (0.0-0.8) 05/31/18 04:50 Eosinophils # (Manual) 0.2 K/mm3 (0.0-0.4) 05/31/18 04:50 Basophils # (Manual) 0.0 K/mm3 (0.0-0.1) 05/31/18 04:50 Metamyelocytes # 0.2 K/mm3 05/31/18 04:50 Myelocytes # 0.2 K/mm3 05/31/18 04:50 Promyelocytes # 0.0 K/mm3 05/31/18 04:50 Blast Cells # 0.0 K/mm3 05/31/18 04:50 WBC Morphology Not Reportable 05/31/18 04:50 Hypersegmented Neuts Not Reportable 05/31/18 04:50 Hyposegmented Neuts Not Reportable 05/31/18 04:50 Hypogranular Neuts Not Reportable 05/31/18 04:50 Smudge Cells Not Reportable 05/31/18 04:50 Toxic Granulation Not Reportable 05/31/18 04:50 Toxic Vacuolation Not Reportable 05/31/18 04:50 Dohle Bodies Not Reportable 05/31/18 04:50 Pelger-Huet Anomaly Not Reportable 05/31/18 04:50 Mahesh Rods Not Reportable 05/31/18 04:50 Platelet Estimate Appears normal 05/31/18 04:50 Clumped Platelets Not Reportable 05/31/18 04:50 Plt Clumps, EDTA Not Reportable 05/31/18 04:50 Large Platelets Not Reportable 05/31/18 04:50 Giant Platelets Not Reportable 05/31/18 04:50 Platelet Satelliting Not Reportable 05/31/18 04:50 Plt Morphology Comment Not Reportable 05/31/18 04:50 RBC Morphology Not Reportable 05/31/18 04:50 Dimorphic RBCs Not Reportable 05/31/18 04:50 Polychromasia Not Reportable 05/31/18 04:50 Hypochromasia Few 05/31/18 04:50 Poikilocytosis Not Reportable 05/31/18 04:50 Anisocytosis 1+ 05/31/18 04:50 Microcytosis Few 05/31/18 04:50 Macrocytosis Not Reportable 05/31/18 04:50 Spherocytes Not Reportable 05/31/18 04:50 Pappenheimer Bodies Not Reportable 05/31/18 04:50 Sickle Cells Not Reportable 05/31/18 04:50 Target Cells Rare 05/31/18 04:50 Tear Drop Cells Not Reportable 05/31/18 04:50 Ovalocytes 1+ 05/31/18 04:50 Helmet Cells Not Reportable 05/31/18 04:50 [place] Bodies Not Reportable 05/31/18 04:50 [place] Rings Not Reportable 05/31/18 04:50 Nory Cells Not Reportable 05/31/18 04:50 Bite Cells Not Reportable 05/31/18 04:50 Crenated Cell Not Reportable 05/31/18 04:50 Elliptocytes Not Reportable 05/31/18 04:50 Acanthocytes (Spur) Not Reportable 05/31/18 04:50 Rouleaux Not Reportable 05/31/18 04:50 Hemoglobin C Crystals Not Reportable 05/31/18 04:50 Schistocytes Not Reportable 05/31/18 04:50 Malaria parasites Not Reportable 05/31/18 04:50 Mk Bodies Not Reportable 05/31/18 04:50 Hem Pathologist Commnt No 05/31/18 04:50 PT 18.3 Sec. (12.2-14.9) H 05/23/18 09:03 INR 1.43 (0.87-1.13) H 05/23/18 09:03 APTT 40.0 Sec. (24.2-36.6) H 05/23/18 09:03 POC ABG pH 7.362 (7.35-7.45) 05/31/18 09:58 POC ABG pCO2 36.4 (35-45) 05/31/18 09:58 POC ABG pO2 101 (80-105) 05/31/18 09:58 POC ABG HCO3 20.7 05/31/18 09:58 POC ABG Total CO2 22 05/31/18 09:58 POC ABG O2 Sat 98 05/31/18 09:58 POC ABG Base Excess -5 05/31/18 09:58 FiO2 40 % 05/31/18 09:58 Sodium 136 mmol/L (137-145) L 06/02/18 Unknown Potassium 3.5 mmol/L (3.6-5.0) L 06/02/18 Unknown Chloride 96.9 mmol/L (98-107) L 06/02/18 Unknown Carbon Dioxide 22 mmol/L (22-30) 06/02/18 Unknown Anion Gap 21 mmol/L 06/02/18 Unknown BUN 62 mg/dL (9-20) H 06/02/18 Unknown Creatinine 4.9 mg/dL (0.8-1.5) H 06/02/18 Unknown Estimated GFR 15 ml/min 06/02/18 Unknown BUN/Creatinine Ratio 13 % 06/02/18 Unknown Glucose 133 mg/dL (75-100) H 06/02/18 Unknown POC Glucose 135 (70-105) H 06/02/18 05:23 Hemoglobin A1c 5.7 % (4-6) 05/14/18 05:05 Lactic Acid 3.80 mmol/L (0.7-2.0) H* 05/26/18 11:00 Calcium 7.2 mg/dL (8.4-10.2) L 06/02/18 Unknown Phosphorus 5.00 mg/dL (2.5-4.5) H 06/02/18 Unknown Magnesium 1.90 mg/dL (1.7-2.3) 06/02/18 Unknown Iron 24 ug/dL (49-181) L 05/16/18 07:02 TIBC 160 mcg/dL (250-450) L 05/16/18 07:02 Ferritin 325.8 ng/mL (13.0-400.0) 05/16/18 07:02 Total Bilirubin 0.50 mg/dL (0.1-1.2) 06/02/18 Unknown AST 46 units/L (5-40) H 06/02/18 Unknown ALT 66 units/L (7-56) H 06/02/18 Unknown Alkaline Phosphatase 119 units/L (35-129) 06/02/18 Unknown Total Creatine Kinase 156 units/L (55-170) 05/25/18 22:46 CK-MB (CK-2) 2.3 ng/mL (0.0-4.0) 05/25/18 22:46 CK-MB (CK-2) Rel Index 1.4 (0-4) 05/25/18 22:46 C-Reactive Protein 40.70 mg/dL (0.00-1.30) H 05/27/18 10:22 Total Protein 5.7 g/dL (6.3-8.2) L 06/02/18 Unknown Albumin 1.5 g/dL (3.9-5) L 06/02/18 Unknown Albumin/Globulin Ratio 0.4 % 06/02/18 Unknown Prostate Specific Ag 0.96 ng/mL (0.00-4.00) 05/14/18 13:29 Vitamin B12 359.2 pg/mL (211-911) 05/16/18 07:02 Folate 5.39 ng/mL (7.3-26.0) L 05/16/18 07:02 TSH 3.180 mlU/mL (0.270-4.200) 05/14/18 05:05 PTH Intact 65.37 pg/mL (15-65) H 05/14/18 05:05 Urine Color Maria Del Rosario (Yellow) 05/27/18 Unknown Urine Turbidity Cloudy (Clear) 05/27/18 Unknown Urine pH 5.0 (5.0-7.0) 05/27/18 Unknown Ur Specific [place] 1.026 (1.003-1.030) 05/27/18 Unknown Urine Protein 100 mg/dl mg/dL (Negative) 05/27/18 Unknown Urine Glucose (UA) 50 mg/dL (Negative) 05/27/18 Unknown Urine Ketones Neg mg/dL (Negative) 05/27/18 Unknown Urine Blood Lg (Negative) 05/27/18 Unknown Urine Nitrite Neg (Negative) 05/27/18 Unknown Urine Bilirubin Neg (Negative) 05/27/18 Unknown Urine Urobilinogen < 2.0 mg/dL (<2.0) 05/27/18 Unknown Ur Leukocyte Esterase Mod (Negative) 05/27/18 Unknown Urine WBC (Auto) 120.0 /HPF (0.0-6.0) H 05/27/18 Unknown Urine RBC (Auto) 35.0 /HPF (0.0-6.0) 05/27/18 Unknown U Epithel Cells (Auto) 3.0 /HPF (0-13.0) 05/27/18 Unknown Urine Bacteria (Auto) 1+ /HPF (Negative) 05/27/18 Unknown Urine WBC Clumps Few /HPF 05/13/18 19:39 Urine Mucus Few /HPF 05/27/18 Unknown Urine Yeast (Budding) 2+ /HPF 05/21/18 15:30 Urine Creatinine 66.0 mg/dL (0.1-20.0) H 05/13/18 19:39 Urine Sodium 60 mmol/L 05/13/18 19:39 Urine Potassium 8.69 mmol/L 05/13/18 19:39 Urine Chloride 27.8 mmolL (110-250) L 05/13/18 19:39 Urine Total Protein 24 mg/dL (5-11.8) H 05/13/18 19:39 Vancomycin Trough 25.1 ug/mL (5.0-20.0) H 05/25/18 22:46 Random Vancomycin 34.3 ug/mL (0-40.0) 05/26/18 11:01 Urine Opiates Screen Presumptive negative 05/13/18 19:39 Urine Methadone Screen Presumptive negative 05/13/18 19:39 Ur Barbiturates Screen Presumptive negative 05/13/18 19:39 Ur Phencyclidine Scrn Presumptive negative 05/13/18 19:39 Ur Amphetamines Screen Presumptive negative 05/13/18 19:39 U Benzodiazepines Scrn Presumptive negative 05/13/18 19:39 Urine Cocaine Screen Presumptive negative 05/13/18 19:39 U Marijuana (THC) Screen Presumptive negative 05/13/18 19:39 Drugs of Abuse Note Disclamer 05/13/18 19:39 ZEUS Screen Negative (Negative) 05/14/18 05:05 Proteinase 3 (PR3) Ab <1.0 AI (<1.0) 05/14/18 05:05 Myeloperoxidase Ab <1.0 AI (<1.0) 05/14/18 05:05 Complement C3 147 mg/dL (82-185) 05/14/18 05:05 Complement C4 45 mg/dL (15-53) 05/14/18 05:05 Hepatitis A IgM Ab Nonreactive (NonReactive) 05/27/18 13:41 Hep Bs Antigen Non-reactive (Negative) 05/27/18 13:41 Hep B Core IgM Ab Non-reactive (NonReactive) 05/27/18 13:41 Hepatitis C Antibody Non-reactive (NonReactive) 05/27/18 13:41 Blood Type O POSITIVE 05/22/18 11:23 Antibody Screen Negative 05/22/18 11:23 Crossmatch See Detail 05/22/18 11:23 <TRESSA WASHINGTON R - Last Filed: 06/03/18 07:17> Assessment and Plan Assessment and plan: I saw and evaluated the patient. I agree with the findings and the plan of care as documented in the Nurse Practitioner's~note, with the following corrections and additions. Hospitalist Physical - Constitutional Vitals: Temp Pulse Resp BP Pulse Ox 98.1 F 113 H 18 157/101 100 06/03/18 04:15 06/03/18 05:14 06/03/18 04:15 06/03/18 05:14 06/03/18 04:15 Results - Labs CBC & Chem 7: 06/02/18 Unknown 06/03/18 03:31 Labs: Laboratory Last Values WBC 20.8 K/mm3 (4.5-11.0) H 06/02/18 Unknown RBC 2.67 M/mm3 (3.65-5.03) L 06/02/18 Unknown Hgb 7.7 gm/dl (11.8-15.2) L 06/02/18 Unknown Hct 23.0 % (35.5-45.6) L 06/02/18 Unknown MCV 86 fl (84-94) 06/02/18 Unknown MCH 29 pg (28-32) 06/02/18 Unknown MCHC 34 % (32-34) 06/02/18 Unknown RDW 14.7 % (13.2-15.2) 06/02/18 Unknown Plt Count 500 K/mm3 (140-440) H 06/02/18 Unknown Lymph % (Auto) Floor Service Worker [place] 05/28/18 05:00 Christian % (Auto) Floor Service Worker [place] 05/28/18 05:00 Eos % (Auto) Floor Service Worker [place] 05/28/18 05:00 Baso % (Auto) Floor Service Worker [place] 05/28/18 05:00 Lymph # Floor Service Worker [place] 05/28/18 05:00 Christian # Floor Service Worker [place] 05/28/18 05:00 Eos # Floor Service Worker [place] 05/28/18 05:00 Baso # Floor Service Worker [place] 05/28/18 05:00 Add Manual Diff Complete 05/31/18 04:50 Total Counted 100 05/31/18 04:50 Seg Neutrophils % Floor Service Worker [place] 05/28/18 05:00 Seg Neuts % (Manual) 91.0 % (40.0-70.0) H 05/31/18 04:50 Band Neutrophils % 2.0 % 05/31/18 04:50 Lymphocytes % (Manual) 2.0 % (13.4-35.0) L 05/31/18 04:50 Reactive Lymphs % (Man) 0 % 05/31/18 04:50 Monocytes % (Manual) 2.0 % (0.0-7.3) 05/31/18 04:50 Eosinophils % (Manual) 1.0 % (0.0-4.3) 05/31/18 04:50 Basophils % (Manual) 0 % (0.0-1.8) 05/31/18 04:50 Metamyelocytes % 1.0 % 05/31/18 04:50 Myelocytes % 1.0 % 05/31/18 04:50 Promyelocytes % 0 % 05/31/18 04:50 Blast Cells % 0 % 05/31/18 04:50 Nucleated RBC % Not Reportable 05/31/18 04:50 Seg Neutrophils # Floor Service Worker [place] 05/28/18 05:00 Seg Neutrophils # Man 17.0 K/mm3 (1.8-7.7) H 05/31/18 04:50 Band Neutrophils # 0.4 K/mm3 05/31/18 04:50 Lymphocytes # (Manual) 0.4 K/mm3 (1.2-5.4) L 05/31/18 04:50 Abs React Lymphs (Man) 0.0 K/mm3 05/31/18 04:50 Monocytes # (Manual) 0.4 K/mm3 (0.0-0.8) 05/31/18 04:50 Eosinophils # (Manual) 0.2 K/mm3 (0.0-0.4) 05/31/18 04:50 Basophils # (Manual) 0.0 K/mm3 (0.0-0.1) 05/31/18 04:50 Metamyelocytes # 0.2 K/mm3 05/31/18 04:50 Myelocytes # 0.2 K/mm3 05/31/18 04:50 Promyelocytes # 0.0 K/mm3 05/31/18 04:50 Blast Cells # 0.0 K/mm3 05/31/18 04:50 WBC Morphology Not Reportable 05/31/18 04:50 Hypersegmented Neuts Not Reportable 05/31/18 04:50 Hyposegmented Neuts Not Reportable 05/31/18 04:50 Hypogranular Neuts Not Reportable 05/31/18 04:50 Smudge Cells Not Reportable 05/31/18 04:50 Toxic Granulation Not Reportable 05/31/18 04:50 Toxic Vacuolation Not Reportable 05/31/18 04:50 Dohle Bodies Not Reportable 05/31/18 04:50 Pelger-Huet Anomaly Not Reportable 05/31/18 04:50 Mahesh Rods Not Reportable 05/31/18 04:50 Platelet Estimate Appears normal 05/31/18 04:50 Clumped Platelets Not Reportable 05/31/18 04:50 Plt Clumps, EDTA Not Reportable 05/31/18 04:50 Large Platelets Not Reportable 05/31/18 04:50 Giant Platelets Not Reportable 05/31/18 04:50 Platelet Satelliting Not Reportable 05/31/18 04:50 Plt Morphology Comment Not Reportable 05/31/18 04:50 RBC Morphology Not Reportable 05/31/18 04:50 Dimorphic RBCs Not Reportable 05/31/18 04:50 Polychromasia Not Reportable 05/31/18 04:50 Hypochromasia Few 05/31/18 04:50 Poikilocytosis Not Reportable 05/31/18 04:50 Anisocytosis 1+ 05/31/18 04:50 Microcytosis Few 05/31/18 04:50 Macrocytosis Not Reportable 05/31/18 04:50 Spherocytes Not Reportable 05/31/18 04:50 Pappenheimer Bodies Not Reportable 05/31/18 04:50 Sickle Cells Not Reportable 05/31/18 04:50 Target Cells Rare 05/31/18 04:50 Tear Drop Cells Not Reportable 05/31/18 04:50 Ovalocytes 1+ 05/31/18 04:50 Helmet Cells Not Reportable 05/31/18 04:50 [place] Bodies Not Reportable 05/31/18 04:50 [place] Rings Not Reportable 05/31/18 04:50 Nory Cells Not Reportable 05/31/18 04:50 Bite Cells Not Reportable 05/31/18 04:50 Crenated Cell Not Reportable 05/31/18 04:50 Elliptocytes Not Reportable 05/31/18 04:50 Acanthocytes (Spur) Not Reportable 05/31/18 04:50 Rouleaux Not Reportable 05/31/18 04:50 Hemoglobin C Crystals Not Reportable 05/31/18 04:50 Schistocytes Not Reportable 05/31/18 04:50 Malaria parasites Not Reportable 05/31/18 04:50 Mk Bodies Not Reportable 05/31/18 04:50 Hem Pathologist Commnt No 05/31/18 04:50 PT 17.1 Sec. (12.2-14.9) H 06/02/18 13:05 INR 1.34 (0.87-1.13) H 06/02/18 13:05 APTT 40.0 Sec. (24.2-36.6) H 05/23/18 09:03 POC ABG pH 7.362 (7.35-7.45) 05/31/18 09:58 POC ABG pCO2 36.4 (35-45) 05/31/18 09:58 POC ABG pO2 101 (80-105) 05/31/18 09:58 POC ABG HCO3 20.7 05/31/18 09:58 POC ABG Total CO2 22 05/31/18 09:58 POC ABG O2 Sat 98 05/31/18 09:58 POC ABG Base Excess -5 05/31/18 09:58 FiO2 40 % 05/31/18 09:58 Sodium 136 mmol/L (137-145) L 06/03/18 03:31 Potassium 4.0 mmol/L (3.6-5.0) 06/03/18 03:31 Chloride 98.1 mmol/L (98-107) 06/03/18 03:31 Carbon Dioxide 25 mmol/L (22-30) 06/03/18 03:31 Anion Gap 17 mmol/L 06/03/18 03:31 BUN 41 mg/dL (9-20) H 06/03/18 03:31 Creatinine 3.4 mg/dL (0.8-1.5) H 06/03/18 03:31 Estimated GFR 23 ml/min 06/03/18 03:31 BUN/Creatinine Ratio 12 % 06/03/18 03:31 Glucose 129 mg/dL (75-100) H 06/03/18 03:31 POC Glucose 125 (70-105) H 06/03/18 00:54 Hemoglobin A1c 5.7 % (4-6) 05/14/18 05:05 Lactic Acid 3.80 mmol/L (0.7-2.0) H* 05/26/18 11:00 Calcium 7.4 mg/dL (8.4-10.2) L 06/03/18 03:31 Phosphorus 4.10 mg/dL (2.5-4.5) 06/03/18 03:31 Magnesium 2.00 mg/dL (1.7-2.3) 06/03/18 03:31 Iron 24 ug/dL (49-181) L 05/16/18 07:02 TIBC 160 mcg/dL (250-450) L 05/16/18 07:02 Ferritin 325.8 ng/mL (13.0-400.0) 05/16/18 07:02 Total Bilirubin 0.50 mg/dL (0.1-1.2) 06/02/18 Unknown AST 46 units/L (5-40) H 06/02/18 Unknown ALT 66 units/L (7-56) H 06/02/18 Unknown Alkaline Phosphatase 119 units/L (35-129) 06/02/18 Unknown Total Creatine Kinase 156 units/L (55-170) 05/25/18 22:46 CK-MB (CK-2) 2.3 ng/mL (0.0-4.0) 05/25/18 22:46 CK-MB (CK-2) Rel Index 1.4 (0-4) 05/25/18 22:46 C-Reactive Protein 40.70 mg/dL (0.00-1.30) H 05/27/18 10:22 Total Protein 5.7 g/dL (6.3-8.2) L 06/02/18 Unknown Albumin 1.5 g/dL (3.9-5) L 06/02/18 Unknown Albumin/Globulin Ratio 0.4 % 06/02/18 Unknown Triglycerides 112 mg/dL (2-149) 06/03/18 03:31 Prostate Specific Ag 0.96 ng/mL (0.00-4.00) 05/14/18 13:29 Vitamin B12 359.2 pg/mL (211-911) 05/16/18 07:02 Folate 5.39 ng/mL (7.3-26.0) L 05/16/18 07:02 TSH 3.180 mlU/mL (0.270-4.200) 05/14/18 05:05 PTH Intact 65.37 pg/mL (15-65) H 05/14/18 05:05 Urine Color Maria Del Rosario (Yellow) 05/27/18 Unknown Urine Turbidity Cloudy (Clear) 05/27/18 Unknown Urine pH 5.0 (5.0-7.0) 05/27/18 Unknown Ur Specific [place] 1.026 (1.003-1.030) 05/27/18 Unknown Urine Protein 100 mg/dl mg/dL (Negative) 05/27/18 Unknown Urine Glucose (UA) 50 mg/dL (Negative) 05/27/18 Unknown Urine Ketones Neg mg/dL (Negative) 05/27/18 Unknown Urine Blood Lg (Negative) 05/27/18 Unknown Urine Nitrite Neg (Negative) 05/27/18 Unknown Urine Bilirubin Neg (Negative) 05/27/18 Unknown Urine Urobilinogen < 2.0 mg/dL (<2.0) 05/27/18 Unknown Ur Leukocyte Esterase Mod (Negative) 05/27/18 Unknown Urine WBC (Auto) 120.0 /HPF (0.0-6.0) H 05/27/18 Unknown Urine RBC (Auto) 35.0 /HPF (0.0-6.0) 05/27/18 Unknown U Epithel Cells (Auto) 3.0 /HPF (0-13.0) 05/27/18 Unknown Urine Bacteria (Auto) 1+ /HPF (Negative) 05/27/18 Unknown Urine WBC Clumps Few /HPF 05/13/18 19:39 Urine Mucus Few /HPF 05/27/18 Unknown Urine Yeast (Budding) 2+ /HPF 05/21/18 15:30 Urine Creatinine 66.0 mg/dL (0.1-20.0) H 05/13/18 19:39 Urine Sodium 60 mmol/L 05/13/18 19:39 Urine Potassium 8.69 mmol/L 05/13/18 19:39 Urine Chloride 27.8 mmolL (110-250) L 05/13/18 19:39 Urine Total Protein 24 mg/dL (5-11.8) H 05/13/18 19:39 Vancomycin Trough 25.1 ug/mL (5.0-20.0) H 05/25/18 22:46 Random Vancomycin 34.3 ug/mL (0-40.0) 05/26/18 11:01 Urine Opiates Screen Presumptive negative 05/13/18 19:39 Urine Methadone Screen Presumptive negative 05/13/18 19:39 Ur Barbiturates Screen Presumptive negative 05/13/18 19:39 Ur Phencyclidine Scrn Presumptive negative 05/13/18 19:39 Ur Amphetamines Screen Presumptive negative 05/13/18 19:39 U Benzodiazepines Scrn Presumptive negative 05/13/18 19:39 Urine Cocaine Screen Presumptive negative 05/13/18 19:39 U Marijuana (THC) Screen Presumptive negative 05/13/18 19:39 Drugs of Abuse Note Disclamer 05/13/18 19:39 ZEUS Screen Negative (Negative) 05/14/18 05:05 Proteinase 3 (PR3) Ab <1.0 AI (<1.0) 05/14/18 05:05 Myeloperoxidase Ab <1.0 AI (<1.0) 05/14/18 05:05 Complement C3 147 mg/dL (82-185) 05/14/18 05:05 Complement C4 45 mg/dL (15-53) 05/14/18 05:05 Hepatitis A IgM Ab Nonreactive (NonReactive) 05/27/18 13:41 Hep Bs Antigen Non-reactive (Negative) 05/27/18 13:41 Hep B Core IgM Ab Non-reactive (NonReactive) 05/27/18 13:41 Hepatitis C Antibody Non-reactive (NonReactive) 05/27/18 13:41 Miscellaneous Test Flexitest 1 H 05/27/18 13:02 Blood Type O POSITIVE 06/02/18 13:05 Antibody Screen Negative 06/02/18 13:05 Crossmatch See Detail 05/22/18 11:23
[2018-06-02] MEDS ORDERED: PROCRIT SUB-Q ONE (09:00)
[2018-06-02] MEDS ORDERED: MAGNESIUM SULFATE 2GM/50ML 2 GM/50 ML BAG IV ONE (10:00)
--- NOTE | 2018-06-02 10:08 | Progress Note ---
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 Hypertensive urgency, Sinus tachycardia with HR 160s CTA negative for PE Hyperkalemia Hypernatrmia Metabolic acidosis Acute blood loss anemia Moderate to severe protein calorie malnutrition - continue supplemental oxygen to keep sats > 90% - NIPPV prn for work of breathing -diagnostic and therapeutic paracentesis today - continue bronchodilators with pulmonary hygiene per RT - HD/UF for toxin and volume clearance - continue anti-infective's per ID recs - continue TPN for now (enteral nutrition once cleared by surgery) - Malignancy per heme-oncologist - continue mobility protocol for pressure ulcer prophylaxis - s/p surgery 05/26 (had ex-lap; matted abdominal organs, pus - Enterostomy tube decompression,loop colostomy and large triple lumen sump drainage of pelvis) - s/p bilateral nephrostomy tubes placed 05/14/[address] Freeman.(CTA negative for P.E.) - continue other care per attending / other consultants -can transfer to surgical floor later today after HD and paracentesis -discharge planning..probalbly SNF to complete antibiotis and for low level rehab Full code status Subjective Date of service: 06/02/18 Principal diagnosis: squamous cell ca - prostate bx - prelim report Interval history: s/p POD#1 for diverting colostomy. Remained intubated post operatively Patient is seen today for: Acute Hypoxemic Resp Failure; Sepsis Syndrome; Acute VTE; Prostate Cancer Seen and examined. vitals, labs, medications, chart reviewed.; 24hour events reviewed; nursing and respiratory care staff consulted; no adverse overnight events reported to me; extubated, doing well; clean urine seen in nephrostomy bags; denies acute chest pains or increased SOB; on going abdominal distension For US guided paracentesis today. Currently getting HD Objective Vital Signs - 12hr 06/01/18 06/01/18 06/01/18 22:30 23:00 23:04 Temperature Pulse Rate 105 H 103 H 107 H Pulse Rate [ From Monitor] Respiratory 34 H 37 H 31 H Rate Blood Pressure 149/95 163/101 163/101 O2 Sat by Pulse 89 97 Oximetry O2 Sat by Pulse Oximetry [ Bilateral Throughout] 06/01/18 06/02/18 06/02/18 23:30 00:00 00:30 Temperature 99.0 F Pulse Rate 104 H 108 H 109 H Pulse Rate [ 115 H From Monitor] Respiratory 29 H 26 H 24 Rate Blood Pressure 153/93 152/93 159/95 O2 Sat by Pulse 99 99 Oximetry O2 Sat by Pulse Oximetry [ Bilateral Throughout] 06/02/18 06/02/18 06/02/18 01:00 01:30 02:00 Temperature Pulse Rate 111 H 105 H 112 H Pulse Rate [ From Monitor] Respiratory 25 H 23 25 H Rate Blood Pressure 153/97 157/97 157/97 O2 Sat by Pulse 100 100 99 Oximetry O2 Sat by Pulse Oximetry [ Bilateral Throughout] 06/02/18 06/02/18 06/02/18 02:30 03:00 03:30 Temperature Pulse Rate 112 H 114 H 110 H Pulse Rate [ From Monitor] Respiratory 29 H 24 22 Rate Blood Pressure 157/100 158/94 154/96 O2 Sat by Pulse 100 Oximetry O2 Sat by Pulse Oximetry [ Bilateral Throughout] 06/02/18 06/02/18 06/02/18 04:00 04:02 04:30 Temperature 98.3 F Pulse Rate 111 H 114 H 113 H Pulse Rate [ 111 H From Monitor] Respiratory 28 H 26 H 28 H Rate Blood Pressure 159/97 161/101 158/99 O2 Sat by Pulse 96 99 99 Oximetry O2 Sat by Pulse Oximetry [ Bilateral Throughout] 06/02/18 06/02/18 06/02/18 05:00 07:30 08:00 Temperature 96.7 F L Pulse Rate 109 H Pulse Rate [ From Monitor] Respiratory 26 H Rate Blood Pressure 156/97 O2 Sat by Pulse 96 97 Oximetry O2 Sat by Pulse Oximetry [ Bilateral Throughout] 06/02/18 06/02/18 06/02/18 08:50 09:05 09:15 Temperature 96.7 F L Pulse Rate 110 H 110 H 108 H Pulse Rate [ From Monitor] Respiratory 26 H Rate Blood Pressure 156/86 156/86 146/95 O2 Sat by Pulse Oximetry O2 Sat by Pulse 96 Oximetry [ Bilateral Throughout] 06/02/18 09:30 Temperature Pulse Rate 106 H Pulse Rate [ From Monitor] Respiratory Rate Blood Pressure 152/96 O2 Sat by Pulse Oximetry O2 Sat by Pulse Oximetry [ Bilateral Throughout] Constitutional: alert, other (chronically ill looking middle aged AAM, normocephalic and atraumatic, ) Eyes: non-icteric ENT: oropharynx moist Neck: supple, no lymphadenopathy, no JVD, other (no thyromegaly) Effort: mildly labored Ascultation: Bilateral: diminished breath sounds, rhonchi (scant in bases) Percussion: Bilateral: not dull Cardiovascular: regular rate and rhythm, other (No R/M) Gastrointestinal: hypoactive bowel sounds, soft, tender (mild), other (Distended ; No palpable HSM, bilateral nephrostomy tubes,) Integumentary: other (femoral vascath) Extremities: no cyanosis, no edema, pulses normal, no ischemia or petechiae Neurologic: normal mental status, non-focal exam, pupils equal and round, other (weak) Psychiatric: mood appropriate, affect normal CBC and BMP: 06/02/18 Unknown 06/02/18 Unknown ABG, PT/INR, D-dimer: ABG POC ABG pH 7.362 (7.35-7.45) 05/31/18 09:58 POC ABG pCO2 36.4 (35-45) 05/31/18 09:58 POC ABG pO2 101 (80-105) 05/31/18 09:58 POC ABG HCO3 20.7 05/31/18 09:58 POC ABG Total CO2 22 05/31/18 09:58 POC ABG O2 Sat 98 05/31/18 09:58 PT/INR, D-dimer PT 18.3 Sec. (12.2-14.9) H 05/23/18 09:03 INR 1.43 (0.87-1.13) H 05/23/18 09:03 Abnormal lab findings: Abnormal Labs 05/13/18 05/13/18 05/13/18 04:27 04:27 19:39 WBC RBC 3.13 L Hgb 9.4 L Hct 26.8 L MCHC 35 H RDW Plt Count Lymph % (Auto) [place] % (Auto) 9.6 H Lymph # [place] # Seg Neutrophils % Seg Neuts % (Manual) Lymphocytes % (Manual) Seg Neutrophils # Seg Neutrophils # Man Lymphocytes # (Manual) PT INR APTT POC ABG pH POC ABG pCO2 POC ABG pO2 Sodium 132 L Potassium 5.5 H Chloride 94.1 L Carbon Dioxide 19 L BUN 72 H Creatinine 14.4 H Glucose POC Glucose Lactic Acid Calcium Phosphorus Magnesium Iron TIBC AST ALT Alkaline Phosphatase Total Creatine Kinase C-Reactive Protein Total Protein Albumin 2.8 L Folate PTH Intact Urine WBC (Auto) Urine Creatinine 66.0 H Urine Chloride 27.8 L Urine Total Protein 24 H Vancomycin Trough Crossmatch 05/13/18 05/14/18 05/14/18 20:00 05:05 05:05 WBC RBC Hgb Hct MCHC RDW Plt Count Lymph % (Auto) [place] % (Auto) Lymph # [place] # Seg Neutrophils % Seg Neuts % (Manual) Lymphocytes % (Manual) Seg Neutrophils # Seg Neutrophils # Man Lymphocytes # (Manual) PT INR APTT POC ABG pH POC ABG pCO2 POC ABG pO2 Sodium 132 L 131 L Potassium 5.2 H 5.8 H Chloride 93.0 L 95.6 L Carbon Dioxide 19 L 20 L BUN 74 H 81 H Creatinine 15.0 H 16.6 H Glucose 134 H 127 H POC Glucose Lactic Acid Calcium 8.2 L 7.9 L Phosphorus 6.30 H Magnesium Iron TIBC AST ALT Alkaline Phosphatase Total Creatine Kinase 236 H C-Reactive Protein Total Protein Albumin Folate PTH Intact 65.37 H Urine WBC (Auto) Urine Creatinine Urine Chloride Urine Total Protein Vancomycin Trough Crossmatch 05/14/18 05/14/18 05/14/18 09:28 10:56 13:29 WBC RBC Hgb Hct MCHC RDW Plt Count Lymph % (Auto) [place] % (Auto) Lymph # [place] # Seg Neutrophils % Seg Neuts % (Manual) Lymphocytes % (Manual) Seg Neutrophils # Seg Neutrophils # Man Lymphocytes # (Manual) PT INR APTT 38.2 H POC ABG pH POC ABG pCO2 POC ABG pO2 Sodium Potassium Chloride Carbon Dioxide BUN Creatinine Glucose POC Glucose 127 H 126 H Lactic Acid Calcium Phosphorus Magnesium Iron TIBC AST ALT Alkaline Phosphatase Total Creatine Kinase C-Reactive Protein Total Protein Albumin Folate PTH Intact Urine WBC (Auto) Urine Creatinine Urine Chloride Urine Total Protein Vancomycin Trough Crossmatch 05/15/18 05/15/18 05/16/18 08:06 08:06 07:02 WBC RBC 2.84 L 2.74 L Hgb 8.5 L 8.5 L Hct 24.2 L 23.5 L MCHC 35 H 36 H RDW Plt Count Lymph % (Auto) [place] % (Auto) 10.4 H 11.0 H Lymph # 1.1 L [place] # 0.9 H Seg Neutrophils % 72.6 H Seg Neuts % (Manual) Lymphocytes % (Manual) Seg Neutrophils # Seg Neutrophils # Man Lymphocytes # (Manual) PT INR APTT POC ABG pH POC ABG pCO2 POC ABG pO2 Sodium Potassium Chloride Carbon Dioxide 19 L BUN 66 H Creatinine 12.0 H Glucose 115 H POC Glucose Lactic Acid Calcium 8.1 L Phosphorus Magnesium Iron TIBC AST ALT Alkaline Phosphatase Total Creatine Kinase C-Reactive Protein Total Protein Albumin Folate PTH Intact Urine WBC (Auto) Urine Creatinine Urine Chloride Urine Total Protein Vancomycin Trough Crossmatch 05/16/18 05/16/18 05/17/18 07:02 07:02 05:08 WBC RBC 2.78 L Hgb 8.2 L Hct 23.9 L MCHC RDW Plt Count Lymph % (Auto) [place] % (Auto) 13.9 H Lymph # [place] # 0.9 H Seg Neutrophils % Seg Neuts % (Manual) Lymphocytes % (Manual) Seg Neutrophils # Seg Neutrophils # Man Lymphocytes # (Manual) PT INR APTT POC ABG pH POC ABG pCO2 POC ABG pO2 Sodium Potassium Chloride Carbon Dioxide BUN 28 H Creatinine 2.4 H D Glucose POC Glucose Lactic Acid Calcium 8.3 L Phosphorus Magnesium 1.50 L Iron 24 L TIBC 160 L AST ALT Alkaline Phosphatase Total Creatine Kinase C-Reactive Protein Total Protein Albumin Folate 5.39 L PTH Intact Urine WBC (Auto) Urine Creatinine Urine Chloride Urine Total Protein Vancomycin Trough Crossmatch 05/17/18 05/18/18 05/18/18 05:08 05:57 05:57 WBC RBC 2.79 L Hgb 8.3 L Hct 24.0 L MCHC 35 H RDW Plt Count Lymph % (Auto) [place] % (Auto) 11.8 H Lymph # [place] # 0.9 H Seg Neutrophils % Seg Neuts % (Manual) Lymphocytes % (Manual) Seg Neutrophils # Seg Neutrophils # Man Lymphocytes # (Manual) PT INR APTT POC ABG pH POC ABG pCO2 POC ABG pO2 Sodium Potassium Chloride Carbon Dioxide BUN Creatinine Glucose POC Glucose Lactic Acid Calcium 7.7 L 8.0 L Phosphorus Magnesium 1.60 L Iron TIBC AST ALT Alkaline Phosphatase Total Creatine Kinase C-Reactive Protein Total Protein Albumin Folate PTH Intact Urine WBC (Auto) Urine Creatinine Urine Chloride Urine Total Protein Vancomycin Trough Crossmatch 05/19/18 05/19/18 05/20/18 05:33 05:33 05:38 WBC RBC 2.95 L Hgb 8.8 L Hct 25.8 L MCHC RDW Plt Count Lymph % (Auto) 10.1 L [place] % (Auto) Lymph # 1.1 L [place] # Seg Neutrophils % 85.2 H Seg Neuts % (Manual) Lymphocytes % (Manual) Seg Neutrophils # 9.0 H Seg Neutrophils # Man Lymphocytes # (Manual) PT INR APTT POC ABG pH POC ABG pCO2 POC ABG pO2 Sodium 135 L Potassium Chloride Carbon Dioxide BUN Creatinine Glucose 132 H POC Glucose Lactic Acid Calcium 7.8 L 8.3 L Phosphorus Magnesium 1.40 L Iron TIBC AST ALT Alkaline Phosphatase Total Creatine Kinase C-Reactive Protein Total Protein Albumin Folate PTH Intact Urine WBC (Auto) Urine Creatinine Urine Chloride Urine Total Protein Vancomycin Trough Crossmatch 05/21/18 05/21/18 05/22/18 04:46 15:30 06:49 WBC 20.0 H RBC 2.70 L Hgb 7.8 L Hct 23.3 L MCHC RDW Plt Count Lymph % (Auto) [place] % (Auto) Lymph # [place] # Seg Neutrophils % Seg Neuts % (Manual) 85.0 H Lymphocytes % (Manual) 4.0 L Seg Neutrophils # Seg Neutrophils # Man 17.0 H Lymphocytes # (Manual) 0.8 L PT INR APTT POC ABG pH POC ABG pCO2 POC ABG pO2 Sodium 135 L Potassium 3.5 L Chloride Carbon Dioxide 21 L BUN 22 H Creatinine Glucose POC Glucose Lactic Acid Calcium 8.1 L Phosphorus Magnesium Iron TIBC AST ALT Alkaline Phosphatase Total Creatine Kinase C-Reactive Protein Total Protein Albumin Folate PTH Intact Urine WBC (Auto) 28.0 H Urine Creatinine Urine Chloride Urine Total Protein Vancomycin Trough Crossmatch 05/22/18 05/22/18 05/23/18 06:49 11:23 09:03 WBC RBC Hgb Hct MCHC RDW Plt Count Lymph % (Auto) [place] % (Auto) Lymph # [place] # Seg Neutrophils % Seg Neuts % (Manual) Lymphocytes % (Manual) Seg Neutrophils # Seg Neutrophils # Man Lymphocytes # (Manual) PT INR APTT POC ABG pH POC ABG pCO2 POC ABG pO2 Sodium 134 L Potassium 3.5 L Chloride Carbon Dioxide 21 L BUN 35 H 36 H Creatinine 1.7 H Glucose 107 H POC Glucose Lactic Acid Calcium 7.9 L Phosphorus Magnesium 2.50 H Iron TIBC AST ALT Alkaline Phosphatase Total Creatine Kinase C-Reactive Protein Total Protein Albumin Folate PTH Intact Urine WBC (Auto) Urine Creatinine Urine Chloride Urine Total Protein Vancomycin Trough Crossmatch See Detail 05/23/18 05/23/18 05/23/18 09:03 09:03 17:34 WBC 26.3 H RBC 3.57 L Hgb 10.4 L Hct 31.1 L D MCHC RDW Plt Count Lymph % (Auto) [place] % (Auto) Lymph # [place] # Seg Neutrophils % Seg Neuts % (Manual) Lymphocytes % (Manual) Seg Neutrophils # Seg Neutrophils # Man Lymphocytes # (Manual) PT 18.3 H INR 1.43 H APTT 40.0 H POC ABG pH POC ABG pCO2 POC ABG pO2 Sodium Potassium Chloride Carbon Dioxide BUN Creatinine Glucose POC Glucose 108 H Lactic Acid Calcium Phosphorus Magnesium Iron TIBC AST ALT Alkaline Phosphatase Total Creatine Kinase C-Reactive Protein Total Protein Albumin Folate PTH Intact Urine WBC (Auto) Urine Creatinine Urine Chloride Urine Total Protein Vancomycin Trough Crossmatch 05/23/18 05/24/18 05/24/18 21:14 04:43 08:04 WBC RBC Hgb Hct MCHC RDW Plt Count Lymph % (Auto) [place] % (Auto) Lymph # [place] # Seg Neutrophils % Seg Neuts % (Manual) Lymphocytes % (Manual) Seg Neutrophils # Seg Neutrophils # Man Lymphocytes # (Manual) PT INR APTT POC ABG pH POC ABG pCO2 POC ABG pO2 Sodium 146 H Potassium Chloride 108.6 H Carbon Dioxide BUN 33 H Creatinine Glucose 109 H POC Glucose 110 H 106 H Lactic Acid Calcium 8.3 L Phosphorus Magnesium 2.50 H Iron TIBC AST ALT Alkaline Phosphatase Total Creatine Kinase C-Reactive Protein Total Protein Albumin Folate PTH Intact Urine WBC (Auto) Urine Creatinine Urine Chloride Urine Total Protein Vancomycin Trough Crossmatch 05/25/18 05/25/18 05/25/18 05:42 05:49 19:50 WBC RBC Hgb Hct MCHC RDW Plt Count Lymph % (Auto) [place] % (Auto) Lymph # [place] # Seg Neutrophils % Seg Neuts % (Manual) Lymphocytes % (Manual) Seg Neutrophils # Seg Neutrophils # Man Lymphocytes # (Manual) PT INR APTT POC ABG pH POC ABG pCO2 POC ABG pO2 Sodium 150 H Potassium Chloride 112.5 H Carbon Dioxide BUN 34 H Creatinine Glucose 102 H POC Glucose 107 H Lactic Acid Calcium Phosphorus Magnesium Iron TIBC AST ALT Alkaline Phosphatase Total Creatine Kinase C-Reactive Protein 34.50 H Total Protein Albumin Folate PTH Intact Urine WBC (Auto) Urine Creatinine Urine Chloride Urine Total Protein Vancomycin Trough Crossmatch 05/25/18 05/25/18 05/25/18 19:50 21:05 22:46 WBC RBC Hgb Hct MCHC RDW Plt Count Lymph % (Auto) [place] % (Auto) Lymph # [place] # Seg Neutrophils % Seg Neuts % (Manual) Lymphocytes % (Manual) Seg Neutrophils # Seg Neutrophils # Man Lymphocytes # (Manual) PT INR APTT POC ABG pH 7.483 H POC ABG pCO2 24.0 L POC ABG pO2 72 L Sodium Potassium Chloride Carbon Dioxide BUN Creatinine Glucose POC Glucose Lactic Acid 5.90 H* Calcium Phosphorus Magnesium Iron TIBC AST ALT Alkaline Phosphatase Total Creatine Kinase C-Reactive Protein Total Protein Albumin Folate PTH Intact Urine WBC (Auto) Urine Creatinine Urine Chloride Urine Total Protein Vancomycin Trough 25.1 H Crossmatch 05/25/18 05/26/18 05/26/18 22:46 00:21 00:51 WBC RBC Hgb Hct MCHC RDW Plt Count Lymph % (Auto) [place] % (Auto) Lymph # [place] # Seg Neutrophils % Seg Neuts % (Manual) Lymphocytes % (Manual) Seg Neutrophils # Seg Neutrophils # Man Lymphocytes # (Manual) PT INR APTT POC ABG pH POC ABG pCO2 POC ABG pO2 Sodium Potassium Chloride Carbon Dioxide BUN Creatinine Glucose POC Glucose 133 H Lactic Acid 8.10 H* 6.20 H* Calcium Phosphorus Magnesium Iron TIBC AST ALT Alkaline Phosphatase Total Creatine Kinase C-Reactive Protein Total Protein Albumin Folate PTH Intact Urine WBC (Auto) Urine Creatinine Urine Chloride Urine Total Protein Vancomycin Trough Crossmatch 05/26/18 05/26/18 05/26/18 01:13 02:24 02:24 WBC 18.7 H RBC Hgb 11.6 L Hct MCHC RDW Plt Count Lymph % (Auto) [place] % (Auto) Lymph # [place] # Seg Neutrophils % Seg Neuts % (Manual) Lymphocytes % (Manual) Seg Neutrophils # Seg Neutrophils # Man Lymphocytes # (Manual) PT INR APTT POC ABG pH POC ABG pCO2 POC ABG pO2 Sodium 147 H Potassium 6.2 H* D Chloride 111.9 H Carbon Dioxide 19 L BUN 80 H Creatinine 5.1 H D Glucose 112 H POC Glucose Lactic Acid 5.20 H* Calcium 6.7 L D Phosphorus Magnesium Iron TIBC AST ALT Alkaline Phosphatase Total Creatine Kinase C-Reactive Protein Total Protein Albumin Folate PTH Intact Urine WBC (Auto) Urine Creatinine Urine Chloride Urine Total Protein Vancomycin Trough Crossmatch 05/26/18 05/26/18 05/26/18 04:20 04:20 05:39 WBC RBC Hgb Hct MCHC RDW Plt Count Lymph % (Auto) [place] % (Auto) Lymph # [place] # Seg Neutrophils % Seg Neuts % (Manual) Lymphocytes % (Manual) Seg Neutrophils # Seg Neutrophils # Man Lymphocytes # (Manual) PT INR APTT POC ABG pH POC ABG pCO2 POC ABG pO2 Sodium 150 H Potassium Chloride 110.0 H Carbon Dioxide 19 L BUN 66 H Creatinine Glucose 166 H POC Glucose 187 H Lactic Acid 5.10 H* Calcium 6.9 L Phosphorus 6.70 H D Magnesium Iron TIBC AST ALT Alkaline Phosphatase Total Creatine Kinase C-Reactive Protein Total Protein Albumin Folate PTH Intact Urine WBC (Auto) Urine Creatinine Urine Chloride Urine Total Protein Vancomycin Trough Crossmatch 05/26/18 05/26/18 05/26/18 06:02 07:29 11:00 WBC RBC Hgb Hct MCHC RDW Plt Count Lymph % (Auto) [place] % (Auto) Lymph # [place] # Seg Neutrophils % Seg Neuts % (Manual) Lymphocytes % (Manual) Seg Neutrophils # Seg Neutrophils # Man Lymphocytes # (Manual) PT INR APTT POC ABG pH POC ABG pCO2 28.8 L POC ABG pO2 Sodium Potassium Chloride Carbon Dioxide BUN Creatinine Glucose POC Glucose Lactic Acid 4.80 H* 3.80 H* Calcium Phosphorus Magnesium Iron TIBC AST ALT Alkaline Phosphatase Total Creatine Kinase C-Reactive Protein Total Protein Albumin Folate PTH Intact Urine WBC (Auto) Urine Creatinine Urine Chloride Urine Total Protein Vancomycin Trough Crossmatch 05/26/18 05/26/18 05/26/18 11:01 12:28 18:00 WBC RBC Hgb Hct MCHC RDW Plt Count Lymph % (Auto) [place] % (Auto) Lymph # [place] # Seg Neutrophils % Seg Neuts % (Manual) Lymphocytes % (Manual) Seg Neutrophils # Seg Neutrophils # Man Lymphocytes # (Manual) PT INR APTT POC ABG pH POC ABG pCO2 POC ABG pO2 Sodium 150 H 151 H Potassium 5.3 H D 6.1 H* Chloride 110.3 H 117.0 H Carbon Dioxide 21 L 20 L BUN 75 H 77 H Creatinine 4.3 H D 4.6 H Glucose 161 H POC Glucose 114 H Lactic Acid Calcium 7.5 L 6.7 L Phosphorus Magnesium Iron TIBC AST 1041 H ALT 406 H Alkaline Phosphatase 281 H Total Creatine Kinase C-Reactive Protein Total Protein 4.4 L Albumin 1.3 L Folate PTH Intact Urine WBC (Auto) Urine Creatinine Urine Chloride Urine Total Protein Vancomycin Trough Crossmatch 05/26/18 05/26/18 05/27/18 18:02 19:17 01:01 WBC 21.7 H RBC 2.70 L Hgb 7.8 L D Hct 24.6 L D MCHC RDW 15.3 H Plt Count Lymph % (Auto) [place] % (Auto) Lymph # [place] # Seg Neutrophils % Seg Neuts % (Manual) 94.0 H Lymphocytes % (Manual) 3.0 L Seg Neutrophils # Seg Neutrophils # Man 20.4 H Lymphocytes # (Manual) 0.7 L PT INR APTT POC ABG pH 7.159 L 7.205 L POC ABG pCO2 54.5 H 53.0 H POC ABG pO2 252 H Sodium Potassium Chloride Carbon Dioxide BUN Creatinine Glucose POC Glucose Lactic Acid Calcium Phosphorus Magnesium Iron TIBC AST ALT Alkaline Phosphatase Total Creatine Kinase C-Reactive Protein Total Protein Albumin Folate PTH Intact Urine WBC (Auto) Urine Creatinine Urine Chloride Urine Total Protein Vancomycin Trough Crossmatch 05/27/18 05/27/18 05/27/18 05:15 05:15 06:11 WBC 24.9 H RBC 2.86 L Hgb 8.1 L Hct 25.9 L MCHC RDW 15.5 H Plt Count Lymph % (Auto) [place] % (Auto) Lymph # [place] # Seg Neutrophils % Seg Neuts % (Manual) Lymphocytes % (Manual) Seg Neutrophils # Seg Neutrophils # Man Lymphocytes # (Manual) PT INR APTT POC ABG pH 7.265 L POC ABG pCO2 46.2 H POC ABG pO2 111 H Sodium 149 H Potassium 6.9 H* Chloride 113.5 H Carbon Dioxide BUN 89 H Creatinine 5.2 H Glucose 118 H POC Glucose Lactic Acid Calcium 7.0 L Phosphorus 9.70 H D Magnesium Iron TIBC AST 876 H ALT 408 H Alkaline Phosphatase Total Creatine Kinase C-Reactive Protein Total Protein 5.2 L Albumin 1.5 L Folate PTH Intact Urine WBC (Auto) Urine Creatinine Urine Chloride Urine Total Protein Vancomycin Trough Crossmatch 05/27/18 05/27/18 05/27/18 08:48 10:22 10:22 WBC RBC Hgb Hct MCHC RDW Plt Count Lymph % (Auto) [place] % (Auto) Lymph # [place] # Seg Neutrophils % Seg Neuts % (Manual) Lymphocytes % (Manual) Seg Neutrophils # Seg Neutrophils # Man Lymphocytes # (Manual) PT INR APTT POC ABG pH POC ABG pCO2 POC ABG pO2 Sodium 146 H Potassium 6.1 H* Chloride 108.2 H Carbon Dioxide 21 L BUN 88 H Creatinine 5.6 H Glucose 163 H POC Glucose 164 H Lactic Acid Calcium 6.7 L Phosphorus Magnesium Iron TIBC AST ALT Alkaline Phosphatase Total Creatine Kinase C-Reactive Protein 40.70 H Total Protein Albumin Folate PTH Intact Urine WBC (Auto) Urine Creatinine Urine Chloride Urine Total Protein Vancomycin Trough Crossmatch 05/27/18 05/27/18 05/27/18 17:39 23:27 Unknown WBC RBC Hgb Hct MCHC RDW Plt Count Lymph % (Auto) [place] % (Auto) Lymph # [place] # Seg Neutrophils % Seg Neuts % (Manual) Lymphocytes % (Manual) Seg Neutrophils # Seg Neutrophils # Man Lymphocytes # (Manual) PT INR APTT POC ABG pH POC ABG pCO2 POC ABG pO2 Sodium Potassium Chloride Carbon Dioxide BUN Creatinine Glucose POC Glucose 59 L 132 H Lactic Acid Calcium Phosphorus Magnesium Iron TIBC AST ALT Alkaline Phosphatase Total Creatine Kinase C-Reactive Protein Total Protein Albumin Folate PTH Intact Urine WBC (Auto) 120.0 H Urine Creatinine Urine Chloride Urine Total Protein Vancomycin Trough Crossmatch 05/28/18 05/28/18 05/28/18 04:32 05:00 05:00 WBC 26.5 H RBC 2.69 L Hgb 7.7 L Hct 23.6 L MCHC RDW Plt Count Lymph % (Auto) [place] % (Auto) Lymph # [place] # Seg Neutrophils % Seg Neuts % (Manual) 96.0 H Lymphocytes % (Manual) 0 L Seg Neutrophils # Seg Neutrophils # Man 25.4 H Lymphocytes # (Manual) 0.0 L PT INR APTT POC ABG pH POC ABG pCO2 POC ABG pO2 134 H Sodium Potassium Chloride Carbon Dioxide BUN 69 H Creatinine 4.4 H Glucose 118 H POC Glucose Lactic Acid Calcium 8.0 L D Phosphorus 6.80 H D Magnesium Iron TIBC AST ALT Alkaline Phosphatase Total Creatine Kinase C-Reactive Protein Total Protein Albumin Folate PTH Intact Urine WBC (Auto) Urine Creatinine Urine Chloride Urine Total Protein Vancomycin Trough Crossmatch 05/28/18 05/28/18 05/28/18 05:27 13:04 17:56 WBC RBC Hgb Hct MCHC RDW Plt Count Lymph % (Auto) [place] % (Auto) Lymph # [place] # Seg Neutrophils % Seg Neuts % (Manual) Lymphocytes % (Manual) Seg Neutrophils # Seg Neutrophils # Man Lymphocytes # (Manual) PT INR APTT POC ABG pH POC ABG pCO2 POC ABG pO2 Sodium Potassium Chloride Carbon Dioxide BUN Creatinine Glucose POC Glucose 128 H 155 H 110 H Lactic Acid Calcium Phosphorus Magnesium Iron TIBC AST ALT Alkaline Phosphatase Total Creatine Kinase C-Reactive Protein Total Protein Albumin Folate PTH Intact Urine WBC (Auto) Urine Creatinine Urine Chloride Urine Total Protein Vancomycin Trough Crossmatch 05/29/18 05/29/18 05/29/18 03:35 04:00 11:51 WBC RBC Hgb Hct MCHC RDW Plt Count Lymph % (Auto) [place] % (Auto) Lymph # [place] # Seg Neutrophils % Seg Neuts % (Manual) Lymphocytes % (Manual) Seg Neutrophils # Seg Neutrophils # Man Lymphocytes # (Manual) PT INR APTT POC ABG pH 7.471 H POC ABG pCO2 POC ABG pO2 78 L Sodium Potassium Chloride Carbon Dioxide BUN 50 H Creatinine 3.9 H Glucose POC Glucose 131 H Lactic Acid Calcium 7.7 L Phosphorus Magnesium 1.50 L Iron TIBC AST 218 H ALT 204 H Alkaline Phosphatase Total Creatine Kinase C-Reactive Protein Total Protein 5.4 L Albumin 1.6 L Folate PTH Intact Urine WBC (Auto) Urine Creatinine Urine Chloride Urine Total Protein Vancomycin Trough Crossmatch 05/29/18 05/30/18 05/30/18 23:56 04:54 05:07 WBC RBC Hgb Hct MCHC RDW Plt Count Lymph % (Auto) [place] % (Auto) Lymph # [place] # Seg Neutrophils % Seg Neuts % (Manual) Lymphocytes % (Manual) Seg Neutrophils # Seg Neutrophils # Man Lymphocytes # (Manual) PT INR APTT POC ABG pH POC ABG pCO2 34.5 L POC ABG pO2 133 H Sodium Potassium Chloride Carbon Dioxide BUN Creatinine Glucose POC Glucose 119 H 115 H Lactic Acid Calcium Phosphorus Magnesium Iron TIBC AST ALT Alkaline Phosphatase Total Creatine Kinase C-Reactive Protein Total Protein Albumin Folate PTH Intact Urine WBC (Auto) Urine Creatinine Urine Chloride Urine Total Protein Vancomycin Trough Crossmatch 05/30/18 05/30/18 05/30/18 05:15 05:15 12:13 WBC 16.2 H RBC 2.53 L Hgb 7.4 L Hct 21.9 L MCHC RDW Plt Count Lymph % (Auto) [place] % (Auto) Lymph # [place] # Seg Neutrophils % Seg Neuts % (Manual) Lymphocytes % (Manual) Seg Neutrophils # Seg Neutrophils # Man Lymphocytes # (Manual) PT INR APTT POC ABG pH POC ABG pCO2 POC ABG pO2 Sodium 135 L Potassium Chloride 97.5 L Carbon Dioxide BUN 69 H Creatinine 5.4 H Glucose 105 H POC Glucose 132 H Lactic Acid Calcium 7.5 L Phosphorus 5.30 H D Magnesium Iron TIBC AST ALT Alkaline Phosphatase Total Creatine Kinase C-Reactive Protein Total Protein Albumin Folate PTH Intact Urine WBC (Auto) Urine Creatinine Urine Chloride Urine Total Protein Vancomycin Trough Crossmatch 05/30/18 05/31/18 05/31/18 17:10 04:50 04:50 WBC 18.7 H RBC 2.86 L Hgb 8.2 L Hct 24.8 L MCHC RDW Plt Count Lymph % (Auto) [place] % (Auto) Lymph # [place] # Seg Neutrophils % Seg Neuts % (Manual) 91.0 H Lymphocytes % (Manual) 2.0 L Seg Neutrophils # Seg Neutrophils # Man 17.0 H Lymphocytes # (Manual) 0.4 L PT INR APTT POC ABG pH POC ABG pCO2 POC ABG pO2 Sodium 132 L Potassium Chloride 92.4 L Carbon Dioxide BUN 77 H Creatinine 5.9 H Glucose POC Glucose 122 H Lactic Acid Calcium 7.3 L Phosphorus 6.40 H D Magnesium Iron TIBC AST ALT Alkaline Phosphatase Total Creatine Kinase C-Reactive Protein Total Protein Albumin Folate PTH Intact Urine WBC (Auto) Urine Creatinine Urine Chloride Urine Total Protein Vancomycin Trough Crossmatch 05/31/18 05/31/18 05/31/18 05:45 11:37 17:52 WBC RBC Hgb Hct MCHC RDW Plt Count Lymph % (Auto) [place] % (Auto) Lymph # [place] # Seg Neutrophils % Seg Neuts % (Manual) Lymphocytes % (Manual) Seg Neutrophils # Seg Neutrophils # Man Lymphocytes # (Manual) PT INR APTT POC ABG pH POC ABG pCO2 POC ABG pO2 Sodium Potassium Chloride Carbon Dioxide BUN Creatinine Glucose POC Glucose 111 H 136 H 115 H Lactic Acid Calcium Phosphorus Magnesium Iron TIBC AST ALT Alkaline Phosphatase Total Creatine Kinase C-Reactive Protein Total Protein Albumin Folate PTH Intact Urine WBC (Auto) Urine Creatinine Urine Chloride Urine Total Protein Vancomycin Trough Crossmatch 06/01/18 06/01/18 06/01/18 00:09 04:00 11:10 WBC RBC Hgb Hct MCHC RDW Plt Count Lymph % (Auto) [place] % (Auto) Lymph # [place] # Seg Neutrophils % Seg Neuts % (Manual) Lymphocytes % (Manual) Seg Neutrophils # Seg Neutrophils # Man Lymphocytes # (Manual) PT INR APTT POC ABG pH POC ABG pCO2 POC ABG pO2 Sodium Potassium Chloride 97.5 L Carbon Dioxide BUN 49 H Creatinine 4.2 H Glucose 104 H POC Glucose 114 H 123 H Lactic Acid Calcium 7.3 L Phosphorus 4.70 H D Magnesium Iron TIBC AST ALT Alkaline Phosphatase Total Creatine Kinase C-Reactive Protein Total Protein Albumin Folate PTH Intact Urine WBC (Auto) Urine Creatinine Urine Chloride Urine Total Protein Vancomycin Trough Crossmatch 06/01/18 06/02/18 06/02/18 17:56 00:15 05:23 WBC RBC Hgb Hct MCHC RDW Plt Count Lymph % (Auto) [place] % (Auto) Lymph # [place] # Seg Neutrophils % Seg Neuts % (Manual) Lymphocytes % (Manual) Seg Neutrophils # Seg Neutrophils # Man Lymphocytes # (Manual) PT INR APTT POC ABG pH POC ABG pCO2 POC ABG pO2 Sodium Potassium Chloride Carbon Dioxide BUN Creatinine Glucose POC Glucose 126 H 135 H 135 H Lactic Acid Calcium Phosphorus Magnesium Iron TIBC AST ALT Alkaline Phosphatase Total Creatine Kinase C-Reactive Protein Total Protein Albumin Folate PTH Intact Urine WBC (Auto) Urine Creatinine Urine Chloride Urine Total Protein Vancomycin Trough Crossmatch 06/02/18 06/02/18 Unknown Unknown WBC 20.8 H RBC 2.67 L Hgb 7.7 L Hct 23.0 L MCHC RDW Plt Count 500 H Lymph % (Auto) [place] % (Auto) Lymph # [place] # Seg Neutrophils % Seg Neuts % (Manual) Lymphocytes % (Manual) Seg Neutrophils # Seg Neutrophils # Man Lymphocytes # (Manual) PT INR APTT POC ABG pH POC ABG pCO2 POC ABG pO2 Sodium 136 L Potassium 3.5 L Chloride 96.9 L Carbon Dioxide BUN 62 H Creatinine 4.9 H Glucose 133 H POC Glucose Lactic Acid Calcium 7.2 L Phosphorus 5.00 H Magnesium Iron TIBC AST 46 H ALT 66 H Alkaline Phosphatase Total Creatine Kinase C-Reactive Protein Total Protein 5.7 L Albumin 1.5 L Folate PTH Intact Urine WBC (Auto) Urine Creatinine Urine Chloride Urine Total Protein Vancomycin Trough Crossmatch Allied health notes reviewed: nursing
--- NOTE | 2018-06-02 12:53 | Progress Note ---
Assessment and Plan POD # 7 below note noted. Pt awake and alert. no specific compl. Abd - slightly less distended. non tender. ostomy pink minimal flatus in bag for paracentesis today. Assessment and plan: 1.Abdominal distention/ascites Awaiting Paracentesis today PRBCs on hold post paracentesis for worsening H&H 2. Bilateral pneumonia (possibly aspiration) Monitor respiratory status Continue Nebs PRN Continue antibiotic 3. Sepsis syndrome (wbc worsen, remains afebrile) Continue cefepime, metrodazole 4. Acute kidney injury (obstructive uropathy vrs contrast nephropathy) HD today Repeat BMP in am Continue to monitor kidney fuction 5. Pelvic mass (primary unknow, s/p surgery, abdomen distended tender) Abdominal US, positive for large amount of fluid collection, ascites Need consult with IR for paracentesis Will discuss with attending/pulmonary Continue pain control PRN 6. Leukocytosis( likely due to sepsis) Continue Cefepime Monitor CBC in am 7. Acute deep venous thrombosis Anticoagulant with Heparin continue 8. Moderate to severe protein calorie malnutrition On tube feeding 9. Hypokalemia Potassium and mag replacement today Recheck today 10. Anemia (likey due to CKD, post o[ blood loss) Objective Vital Signs - 12hr 06/02/18 06/02/18 06/02/18 01:00 01:30 02:00 Temperature Pulse Rate 111 H 105 H 112 H Pulse Rate [ From Monitor] Respiratory 25 H 23 25 H Rate Blood Pressure 153/97 157/97 157/97 O2 Sat by Pulse 100 100 99 Oximetry O2 Sat by Pulse Oximetry [ Bilateral Throughout] 06/02/18 06/02/18 06/02/18 02:30 03:00 03:30 Temperature Pulse Rate 112 H 114 H 110 H Pulse Rate [ From Monitor] Respiratory 29 H 24 22 Rate Blood Pressure 157/100 158/94 154/96 O2 Sat by Pulse 100 Oximetry O2 Sat by Pulse Oximetry [ Bilateral Throughout] 06/02/18 06/02/18 06/02/18 04:00 04:02 04:30 Temperature 98.3 F Pulse Rate 111 H 114 H 113 H Pulse Rate [ 111 H From Monitor] Respiratory 28 H 26 H 28 H Rate Blood Pressure 159/97 161/101 158/99 O2 Sat by Pulse 96 99 99 Oximetry O2 Sat by Pulse Oximetry [ Bilateral Throughout] 06/02/18 06/02/1806/02/18 05:00 07:30 08:00 Temperature 96.7 F L Pulse Rate 109 H Pulse Rate [ From Monitor] Respiratory 26 H Rate Blood Pressure 156/97 O2 Sat by Pulse 96 97 Oximetry O2 Sat by Pulse Oximetry [ Bilateral Throughout] 06/02/18 06/02/18 06/02/18 08:50 09:05 09:15 Temperature 96.7 F L Pulse Rate 110 H 110 H 108 H Pulse Rate [ From Monitor] Respiratory 26 H Rate Blood Pressure 156/86 156/86 146/95 O2 Sat by Pulse Oximetry O2 Sat by Pulse 96 Oximetry [ Bilateral Throughout] 06/02/18 06/02/18 06/02/18 09:30 09:45 10:00 Temperature Pulse Rate 106 H 110 H 111 H Pulse Rate [ From Monitor] Respiratory Rate Blood Pressure 152/96 159/94 156/93 O2 Sat by Pulse Oximetry O2 Sat by Pulse Oximetry [ Bilateral Throughout] 06/02/18 06/02/18 06/02/18 10:15 10:30 10:45 Temperature Pulse Rate 114 H 104 H 100 H Pulse Rate [ From Monitor] Respiratory Rate Blood Pressure 166/95 155/95 146/86 O2 Sat by Pulse Oximetry O2 Sat by Pulse Oximetry [ Bilateral Throughout] 06/02/18 06/02/18 06/02/18 11:01 11:15 11:30 Temperature Pulse Rate 102 H 114 H 111 H Pulse Rate [ From Monitor] Respiratory Rate Blood Pressure 157/96 149/103 151/95 O2 Sat by Pulse Oximetry O2 Sat by Pulse Oximetry [ Bilateral Throughout] 06/02/18 06/02/18 06/02/18 11:46 12:00 12:10 Temperature Pulse Rate 107 H 105 H 100 H Pulse Rate [ From Monitor] Respiratory Rate Blood Pressure 155/98 155/100 144/99 O2 Sat by Pulse Oximetry O2 Sat by Pulse Oximetry [ Bilateral Throughout] 06/02/18 12:48 Temperature 96.7 F L Pulse Rate 114 H Pulse Rate [ From Monitor] Respiratory 28 H Rate Blood Pressure 152/100 O2 Sat by Pulse Oximetry O2 Sat by Pulse 96 Oximetry [ Bilateral Throughout] - Labs 06/02/18 Unknown 06/02/18 Unknown Diabetes panel 06/02/18 Range/Units Unknown Sodium 136 L (137-145) mmol/L Potassium 3.5 L (3.6-5.0) mmol/L Chloride 96.9 L (98-107) mmol/L Carbon Dioxide 22 (22-30) mmol/L BUN 62 H (9-20) mg/dL Creatinine 4.9 H (0.8-1.5) mg/dL Glucose 133 H (75-100) mg/dL Calcium 7.2 L (8.4-10.2) mg/dL AST 46 H (5-40) units/L ALT 66 H (7-56) units/L Alkaline Phosphatase 119 (35-129) units/L Total Protein 5.7 L (6.3-8.2) g/dL Albumin 1.5 L (3.9-5) g/dL Calcium panel 06/02/18 Range/Units Unknown Calcium 7.2 L (8.4-10.2) mg/dL Phosphorus 5.00 H (2.5-4.5) mg/dL Albumin 1.5 L (3.9-5) g/dL Pituitary panel 06/02/18 Range/Units Unknown Sodium 136 L (137-145) mmol/L Potassium 3.5 L (3.6-5.0) mmol/L Chloride 96.9 L (98-107) mmol/L Carbon Dioxide 22 (22-30) mmol/L BUN 62 H (9-20) mg/dL Creatinine 4.9 H (0.8-1.5) mg/dL Glucose 133 H (75-100) mg/dL Calcium 7.2 L (8.4-10.2) mg/dL Adrenal panel 06/02/18 Range/Units Unknown Sodium 136 L (137-145) mmol/L Potassium 3.5 L (3.6-5.0) mmol/L Chloride 96.9 L (98-107) mmol/L Carbon Dioxide 22 (22-30) mmol/L BUN 62 H (9-20) mg/dL Creatinine 4.9 H (0.8-1.5) mg/dL Glucose 133 H (75-100) mg/dL Calcium 7.2 L (8.4-10.2) mg/dL Total Bilirubin 0.50 (0.1-1.2) mg/dL AST 46 H (5-40) units/L ALT 66 H (7-56) units/L Alkaline Phosphatase 119 (35-129) units/L Total Protein 5.7 L (6.3-8.2) g/dL Albumin 1.5 L (3.9-5) g/dL
[2018-06-02 13:57] LABS: INR 1.34 (0.87-1.13)
[2018-06-02] MEDS: APRESOLINE PO SCH ×3 (14:12→23:05)
--- NOTE | 2018-06-02 15:01 | Hem/Onc Progress Note ---
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 Ultrasound Kidneys showed bilat hydronephrosis CT Abd shows Pelvic mass with multiple large lymph nodes Had bilateral nephrostomy tubes placed 05/14/[address] Freeman. abnormal renal function - HD - as per nephrology #Acute DVT right leg - below knee No anticoagulation for now because of bilateral nephrostomy tubes and abdo issues. 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 - Patient Problems (1) Pelvic mass in male Current Visit: Yes Status: Acute Subjective Date of service: 06/02/18 Principal diagnosis: sq cell ca Interval history: pt in critical unit - extubated pt had diverting colostomy 05/26 central line in neck has colostomy - nephrostomy and abdo drain 06/01 - d/w path - no sample from 05/26 NO BM in stomy - has NGT Objective - Constitutional Vitals: Last Vital Signs Temp 96.7 F L 06/02/18 12:48 Pulse 113 H 06/02/18 14:00 Resp 29 H 06/02/18 14:00 BP 145/97 06/02/18 14:00 Pulse Ox 99 06/02/18 14:00 Pain Intensity (0-10): 3/10 General appearance: mild distress Performance status: 4-completely disabled - EENT Eyes: PERRL ENT: other (spit in mouth - occasional suctioning) Lymph node exam: negative cervical, negative supraclavicular - Respiratory Respiratory effort: Positive: normal Respiratory: bilateral: CTA (anteriorly) - Cardiovascular Heart Sounds: Present: S1 & S2 Extremities: No edema - Gastrointestinal General gastrointestinal: Present: soft, other (colostomy+) Rectal Exam: deferred - Genitourinary Male genitourinary: Present: deferred - Integumentary Integumentary: warm - Musculoskeletal Musculoskeletal: strength equal bilaterally - Neurologic Neurologic: moves all extremities - Psychiatric Psychiatric: appropriate mood/affect - Labs Lab Results: Laboratory Results - last 24 hr 05/27/18 06/01/18 06/02/18 13:02 17:56 00:15 WBC RBC Hgb Hct MCV MCH MCHC RDW Plt Count PT INR Sodium Potassium Chloride Carbon Dioxide Anion Gap BUN Creatinine Estimated GFR BUN/Creatinine Ratio Glucose POC Glucose 126 H 135 H Calcium Phosphorus Magnesium Total Bilirubin AST ALT Alkaline Phosphatase Total Protein Albumin Albumin/Globulin Ratio Miscellaneous Test Flexitest 1 H Blood Type Antibody Screen 06/02/18 06/02/18 06/02/18 05:23 12:42 13:05 WBC RBC Hgb Hct MCV MCH MCHC RDW Plt Count PT 17.1 H INR 1.34 H Sodium Potassium Chloride Carbon Dioxide Anion Gap BUN Creatinine Estimated GFR BUN/Creatinine Ratio Glucose POC Glucose 135 H 142 H Calcium Phosphorus Magnesium Total Bilirubin AST ALT Alkaline Phosphatase Total Protein Albumin Albumin/Globulin Ratio Miscellaneous Test Blood Type Antibody Screen 06/02/18 06/02/18 06/02/18 13:05 Unknown Unknown WBC 20.8 H RBC 2.67 L Hgb 7.7 L Hct 23.0 L MCV 86 MCH 29 MCHC 34 RDW 14.7 Plt Count 500 H PT INR Sodium 136 L Potassium 3.5 L Chloride 96.9 L Carbon Dioxide 22 Anion Gap 21 BUN 62 H Creatinine 4.9 H Estimated GFR 15 BUN/Creatinine Ratio 13 Glucose 133 H POC Glucose Calcium 7.2 L Phosphorus 5.00 H Magnesium 1.90 Total Bilirubin 0.50 AST 46 H ALT 66 H Alkaline Phosphatase 119 Total Protein 5.7 L Albumin 1.5 L Albumin/Globulin Ratio 0.4 Miscellaneous Test Blood Type O POSITIVE Antibody Screen Negative
[2018-06-02] MEDS: KCL 10MEQ/100ML 10 MEQ/100 ML BAG IV SCH ×2 (15:44→21:48)
[2018-06-02] MEDS: MAXIPIME/NS 2 GM/100 ML 2 GM/100 ML BAG IV SCH (15:44)
[2018-06-02] MEDS: HEPARIN SUB-Q SCH ×2 (15:46→23:27)
[2018-06-02] MEDS: PEPCID IV SCH (15:48)
[2018-06-02] MEDS: FERROUS SULFATE PO SCH ×2 (15:52→22:51)
[2018-06-02] MEDS: FOLVITE PO SCH (15:52)
[2018-06-02] MEDS ORDERED: TPN ADULT 2,016 ML IV SCH (20:00)
[2018-06-03 04:12] LABS: Calcium 7.4 mg/dL (8.4-10.2)
[2018-06-03] MEDS: FLAGYL 500 MG/100 ML 500 MG/100 ML BAG IV SCH ×2 (05:13→13:18)
[2018-06-03] MEDS: LOPRESSOR IV SCH ×6 (05:14→22:16)
[2018-06-03] MEDS: APRESOLINE PO SCH ×2 (05:41→14:50)
[2018-06-03] MEDS: HumuLIN R SUB-Q SCH ×4 (05:41→18:01)
--- NOTE | 2018-06-03 07:24 | Hem/Onc Progress Note ---
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 Ultrasound Kidneys showed bilat hydronephrosis CT Abd shows Pelvic mass with multiple large lymph nodes Had bilateral nephrostomy tubes placed 05/14/[address] Freeman. abnormal renal function - HD - as per nephrology #Acute DVT right leg - below knee No anticoagulation for now because of bilateral nephrostomy tubes and abdo issues. 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 Objective - Constitutional Vitals: Last Vital Signs Temp 98.1 F 06/03/18 04:15 Pulse 113 H 06/03/18 05:14 Resp 18 06/03/18 04:15 BP 157/101 06/03/18 05:14 Pulse Ox 100 06/03/18 04:15 Pain Intensity (0-10): 1/10 General appearance: mild distress Performance status: 4-completely disabled - EENT Eyes: EOM intact ENT: clear oral mucosa Lymph node exam: negative cervical, negative supraclavicular - Neck Neck: supple - Respiratory Respiratory: bilateral: CTA (anteriorly) - Cardiovascular Heart Sounds: Present: S1 & S2 Extremities: No edema - Gastrointestinal General gastrointestinal: Present: soft, other (stomy+) Rectal Exam: deferred - Genitourinary Male genitourinary: Present: deferred - Integumentary Integumentary: warm - Musculoskeletal Musculoskeletal: strength equal bilaterally - Neurologic Neurologic: moves all extremities - Labs Lab Results: Laboratory Results - last 24 hr 05/27/18 06/02/18 06/02/18 13:02 12:42 13:05 WBC RBC Hgb Hct MCV MCH MCHC RDW Plt Count PT 17.1 H INR 1.34 H Sodium Potassium Chloride Carbon Dioxide Anion Gap BUN Creatinine Estimated GFR BUN/Creatinine Ratio Glucose POC Glucose 142 H Calcium Phosphorus Magnesium Total Bilirubin AST ALT Alkaline Phosphatase Total Protein Albumin Albumin/Globulin Ratio Triglycerides Miscellaneous Test Flexitest 1 H Blood Type Antibody Screen 06/02/18 06/02/18 06/02/18 13:05 Unknown Unknown WBC 20.8 H RBC 2.67 L Hgb 7.7 L Hct 23.0 L MCV 86 MCH 29 MCHC 34 RDW 14.7 Plt Count 500 H PT INR Sodium 136 L Potassium 3.5 L Chloride 96.9 L Carbon Dioxide 22 Anion Gap 21 BUN 62 H Creatinine 4.9 H Estimated GFR 15 BUN/Creatinine Ratio 13 Glucose 133 H POC Glucose Calcium 7.2 L Phosphorus 5.00 H Magnesium 1.90 Total Bilirubin 0.50 AST 46 H ALT 66 H Alkaline Phosphatase 119 Total Protein 5.7 L Albumin 1.5 L Albumin/Globulin Ratio 0.4 Triglycerides Miscellaneous Test Blood Type O POSITIVE Antibody Screen Negative 06/03/18 06/03/18 00:54 03:31 WBC RBC Hgb Hct MCV MCH MCHC RDW Plt Count PT INR Sodium 136 L Potassium 4.0 Chloride 98.1 Carbon Dioxide 25 Anion Gap 17 BUN 41 H Creatinine 3.4 H Estimated GFR 23 BUN/Creatinine Ratio 12 Glucose 129 H POC Glucose 125 H Calcium 7.4 L Phosphorus 4.10 Magnesium 2.00 Total Bilirubin AST ALT Alkaline Phosphatase Total Protein Albumin Albumin/Globulin Ratio Triglycerides 112 Miscellaneous Test Blood Type Antibody Screen
--- NOTE | 2018-06-03 09:16 | Progress Note ---
Assessment and Plan 1. Acute kidney injury: Recurrent Acute kidney injury. Initial MARYLOU in the setting of bilateral hydronephrosis secondary to pelvic mass , now s/p bilateral nephrostomy. Patient required urgent hemodialysis due to worsening renal function and persistent hyperkalemia. Last dialyzed yesterday. 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 Renal prognosis is guarded. ON PPN. 2. Electrolytes: Hyponatremia, monitor. Hypokalemia, monitor. 3. Bowel obstruction: S/p ostomy. 4. Bilateral hydronephrosis: S/p bilateral nephrostomy. S/p Cysto and drainage of abscess. 5. Respiratory failure: S/p extubated. 6. Hypotension: Improved. 7. Anemia. 8. 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 Subjective Date of service: 06/03/18 Principal diagnosis: sq cell ca and pelvic mass Interval history: Patient was seen and examined at the bedside. Objective - Vital Signs Vital signs: Vital Signs - 12hr 06/02/18 06/02/18 06/02/18 21:21 21:30 21:41 Temperature Pulse Rate Respiratory Rate Blood Pressure 158/102 151/95 151/95 Blood Pressure [Right] O2 Sat by Pulse 98 95 98 Oximetry 06/02/18 06/02/18 06/02/18 21:51 22:00 23:27 Temperature Pulse Rate Respiratory Rate Blood Pressure 155/100 157/101 Blood Pressure [Right] O2 Sat by Pulse 96 97 Oximetry 06/03/18 06/03/18 06/03/18 00:13 03:48 04:00 Temperature 97.8 F Pulse Rate 103 H 106 H 115 H Respiratory 18 24 Rate Blood Pressure Blood Pressure 149/100 [Right] O2 Sat by Pulse 98 98 Oximetry 06/03/18 06/03/18 06/03/18 04:15 05:14 08:00 Temperature 98.1 F 98.2 F Pulse Rate 113 H 113 H 110 H Respiratory 18 18 Rate Blood Pressure 157/101 157/97 Blood Pressure 145/97 [Right] O2 Sat by Pulse 100 88 Oximetry - General Appearance General appearance: well-developed, appears stated age, other (not in distress, right groin temp catheter) EENT: ATNC, PERRL, mucous membranes dry Neck: supple Respiratory: Present: Clear to Ascultation Cardiology: regular, S1S2, no murmurs Gastrointestinal: normoactive bowel sounds, distended, other (bilateral nephrostomy and ostomy) Integumentary: no rash, warm and dry Neurologic: other (able to move extremities) Musculoskeletal: other (no edema) - Lab 06/02/18 Unknown 06/03/18 03:31 Most recent lab results Calcium 7.4 mg/dL (8.4-10.2) L 06/03/18 03:31 Phosphorus 4.10 mg/dL (2.5-4.5) 06/03/18 03:31 Magnesium 2.00 mg/dL (1.7-2.3) 06/03/18 03:31 Urine Creatinine 66.0 mg/dL (0.1-20.0) H 05/13/18 19:39 Urine Sodium 60 mmol/L 05/13/18 19:39 Urine Total Protein 24 mg/dL (5-11.8) H 05/13/18 19:39
[2018-06-03 09:50] LABS: INR 1.34 (0.87-1.13)
[2018-06-03] MEDS: FOLVITE PO SCH (10:24)
[2018-06-03] MEDS: HEPARIN SUB-Q SCH ×2 (10:24→22:04)
[2018-06-03] MEDS: FERROUS SULFATE PO SCH ×2 (10:24→22:00)
--- NOTE | 2018-06-03 10:54 | Progress Note ---
Assessment and Plan Assessment: 1) Sepsis: still low grade fever and leukocytosis. Etiology unclear - most likely necrotic malignancy ? abscess +/- UTI +/- LLL pneumonia -Blood cx 05/15 neg, 05/20 neg, 05/26 neg -CRP=40 -->11 -Procal=79 2) Complicated UTI: repeat UA 05/21 28 wbc, trace LE. 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 Enlarged pelvic lymph nodes, bilateral hydronephrosis. -S/p 05/14/18 left and right nephrostomy tube placements and mass biopsy -S/p 05/18/2018 cystoscopy with right great toe pyelogram found to have a bladder mass and prostate mass -S/p 05/26/18 diverting colostomy. Intrabdominal cx + Bacteroides fragilis -Path showed sq cell ca at prostate area unclear primary - anal vs lung 4) LLL pneumonia, sputum cx + Yeast 5) MARYLOU 6) Weight loss Plan: -continue cefepime, flagyl D8 -upon discharge will do 2-3 weeks IV abx -monitor fever I am rounding on 06/06 Thank you for your consultation, will follow up with you. Sugey Garcia MD Infectious Diseases Specialist [facility] ([facility]) M [phone] O [phone] Subjective Date of service: 06/03/18 Principal diagnosis: sq cell ca and pelvic mass Interval history: alert talking. tmax 100.5 Microbiology: Blood cultures: 05/15 neg 05/20 neg 05/26 ngtd Urine cultures: 05/21 neg 05/27 neg Sputum: 05/27 yeast OR cultures: 05/26 Bacteroides fragilis Current Antimicrobials: 05/27 cefepime, flagyl Previous Antimicrobials: Zosyn 05/19 zyvox Levaquin 05/26 Objective - Exam Narrative Exam: General appearance: Alert in NAD, nonconversant Eyes: anicteric sclerae, moist conjunctivae; no lid-lag; PERRLA HENT: Atraumatic; oropharynx +EET +NGT. Normal external ears. +temporal wasting Neck: Trachea midline; supple, no thyromegaly or lymphadenopathy Lungs: amy rhonchi CV: RRR, no murmurs Abdomen: Soft, +diverting colostomy +multiple drains and amy PC nephros Extremities: No peripheral edema or extremity lymphadenopathy Skin: Normal temperature, turgor and texture; no rash, ulcers or subcutaneous nodules Psych: sedated. Neuro: sedated Lines: right fem line, right IJ - Constitutional Vitals: Vital Signs Temp Pulse Resp BP Pulse Ox 98.2 F 110 H 22 157/97 88 06/03/18 08:00 06/03/18 08:00 06/03/18 10:00 06/03/18 08:00 06/03/18 08:00 Temperature -Last 24 Hours Temperature 98.2 F Temperature 98.1 F Temperature 97.8 F Temperature 98.3 F Temperature 100.5 F Temperature 96.7 F Temperature 98.9 F - Labs CBC & Chem 7: 06/02/18 Unknown 06/03/18 03:31 Labs: Abnormal lab results 05/27/18 06/02/18 06/02/18 Range/Units 13:02 12:42 13:05 PT 17.1 H (12.2-14.9) Sec. INR 1.34 H (0.87-1.13) Sodium (137-145) mmol/L BUN (9-20) mg/dL Creatinine (0.8-1.5) mg/dL Glucose (75-100) mg/dL POC Glucose 142 H (70-105) Calcium (8.4-10.2) mg/dL C-Reactive Protein (0.00-1.30) mg/dL Miscellaneous Test Flexitest 1 H 06/03/18 06/03/18 06/03/18 Range/Units 00:54 03:31 09:18 PT 17.1 H (12.2-14.9) Sec. INR 1.34 H (0.87-1.13) Sodium 136 L (137-145) mmol/L BUN 41 H (9-20) mg/dL Creatinine 3.4 H (0.8-1.5) mg/dL Glucose 129 H (75-100) mg/dL POC Glucose 125 H (70-105) Calcium 7.4 L (8.4-10.2) mg/dL C-Reactive Protein (0.00-1.30) mg/dL Miscellaneous Test 06/03/18 Range/Units 09:18 PT (12.2-14.9) Sec. INR (0.87-1.13) Sodium (137-145) mmol/L BUN (9-20) mg/dL Creatinine (0.8-1.5) mg/dL Glucose (75-100) mg/dL POC Glucose (70-105) Calcium (8.4-10.2) mg/dL C-Reactive Protein 11.10 H (0.00-1.30) mg/dL Miscellaneous Test
--- NOTE | 2018-06-03 11:09 | Progress Note ---
Assessment and Plan Assessment and plan: Abdominal distention/ascites Awaiting Paracentesis today Check peritoneal cell count with differential, cytology, total protein, fluid culture, albumin, amylase, LDH and glucose Bilateral pneumonia (possibly aspiration) Monitor respiratory status Continue Nebs PRN Continue antibiotic Sepsis syndrome (wbc worsen, remains afebrile) Continue cefepime, metrodazole Acute kidney injury (obstructive uropathy vs contrast nephropathy) HD today Repeat BMP in am Continue to monitor kidney fuction Had bilateral nephrostomy tubes placed 05/14/[address] Freeman. 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 Continue pain control PRN Leukocytosis( likely due to sepsis) Continue Cefepime Monitor CBC in am Acute deep venous thrombosis Anticoagulation on hold because of anemia, bilateral nephrostomy tubes and abdominal issues Moderate to severe protein calorie malnutrition On tube feeding Hypokalemia Potassium and mag replacement as needed Anemia (likey due to CKD, post op blood loss) Continue pain control PRN Continue supportive care History Interval history: No new issues overnight. Hospitalist Physical - Constitutional Vitals: Temp Pulse Resp BP Pulse Ox 98.2 F 110 H 22 157/97 88 06/03/18 08:00 06/03/18 08:00 06/03/18 10:00 06/03/18 08:00 06/03/18 08:00 General appearance: Present: no acute distress - EENT Eyes: Present: PERRL, EOM intact ENT: hearing intact, clear oral mucosa, dentition normal - Neck Neck: Present: supple, normal ROM - Respiratory Respiratory effort: normal Respiratory: bilateral: CTA - Cardiovascular Rhythm: regular Heart Sounds: Present: S1 & S2. Absent: gallop, rub - Extremities Extremities: no ischemia, No edema, Full ROM - Abdominal General gastrointestinal: soft, non-tender, non-distended, normal bowel sounds - Integumentary Integumentary: Present: clear, warm, dry - Neurologic Neurologic: CNII-XII intact, moves all extremities Results - Labs CBC & Chem 7: 06/02/18 Unknown 06/03/18 03:31 Labs: Laboratory Last Values WBC 20.8 K/mm3 (4.5-11.0) H 06/02/18 Unknown RBC 2.67 M/mm3 (3.65-5.03) L 06/02/18 Unknown Hgb 7.7 gm/dl (11.8-15.2) L 06/02/18 Unknown Hct 23.0 % (35.5-45.6) L 06/02/18 Unknown MCV 86 fl (84-94) 06/02/18 Unknown MCH 29 pg (28-32) 06/02/18 Unknown MCHC 34 % (32-34) 06/02/18 Unknown RDW 14.7 % (13.2-15.2) 06/02/18 Unknown Plt Count 500 K/mm3 (140-440) H 06/02/18 Unknown Lymph % (Auto) Care Associate 05/28/18 05:00 [place] % (Auto) Care Associate 05/28/18 05:00 Eos % (Auto) Care Associate 05/28/18 05:00 Baso % (Auto) Care Associate 05/28/18 05:00 Lymph # Care Associate 05/28/18 05:00 [place] # Care Associate 05/28/18 05:00 Eos # Care Associate 05/28/18 05:00 Baso # Care Associate 05/28/18 05:00 Add Manual Diff Complete 05/31/18 04:50 Total Counted 100 05/31/18 04:50 Seg Neutrophils % Care Associate 05/28/18 05:00 Seg Neuts % (Manual) 91.0 % (40.0-70.0) H 05/31/18 04:50 Band Neutrophils % 2.0 % 05/31/18 04:50 Lymphocytes % (Manual) 2.0 % (13.4-35.0) L 05/31/18 04:50 Reactive Lymphs % (Man) 0 % 05/31/18 04:50 Monocytes % (Manual) 2.0 % (0.0-7.3) 05/31/18 04:50 Eosinophils % (Manual) 1.0 % (0.0-4.3) 05/31/18 04:50 Basophils % (Manual) 0 % (0.0-1.8) 05/31/18 04:50 Metamyelocytes % 1.0 % 05/31/18 04:50 Myelocytes % 1.0 % 05/31/18 04:50 Promyelocytes % 0 % 05/31/18 04:50 Blast Cells % 0 % 05/31/18 04:50 Nucleated RBC % Not Reportable 05/31/18 04:50 Seg Neutrophils # Care Associate 05/28/18 05:00 Seg Neutrophils # Man 17.0 K/mm3 (1.8-7.7) H 05/31/18 04:50 Band Neutrophils # 0.4 K/mm3 05/31/18 04:50 Lymphocytes # (Manual) 0.4 K/mm3 (1.2-5.4) L 05/31/18 04:50 Abs React Lymphs (Man) 0.0 K/mm3 05/31/18 04:50 Monocytes # (Manual) 0.4 K/mm3 (0.0-0.8) 05/31/18 04:50 Eosinophils # (Manual) 0.2 K/mm3 (0.0-0.4) 05/31/18 04:50 Basophils # (Manual) 0.0 K/mm3 (0.0-0.1) 05/31/18 04:50 Metamyelocytes # 0.2 K/mm3 05/31/18 04:50 Myelocytes # 0.2 K/mm3 05/31/18 04:50 Promyelocytes # 0.0 K/mm3 05/31/18 04:50 Blast Cells # 0.0 K/mm3 05/31/18 04:50 WBC Morphology Not Reportable 05/31/18 04:50 Hypersegmented Neuts Not Reportable 05/31/18 04:50 Hyposegmented Neuts Not Reportable 05/31/18 04:50 Hypogranular Neuts Not Reportable 05/31/18 04:50 Smudge Cells Not Reportable 05/31/18 04:50 Toxic Granulation Not Reportable 05/31/18 04:50 Toxic Vacuolation Not Reportable 05/31/18 04:50 Dohle Bodies Not Reportable 05/31/18 04:50 Pelger-Huet Anomaly Not Reportable 05/31/18 04:50 Mahesh Rods Not Reportable 05/31/18 04:50 Platelet Estimate Appears normal 05/31/18 04:50 Clumped Platelets Not Reportable 05/31/18 04:50 Plt Clumps, EDTA Not Reportable 05/31/18 04:50 Large Platelets Not Reportable 05/31/18 04:50 Giant Platelets Not Reportable 05/31/18 04:50 Platelet Satelliting Not Reportable 05/31/18 04:50 Plt Morphology Comment Not Reportable 05/31/18 04:50 RBC Morphology Not Reportable 05/31/18 04:50 Dimorphic RBCs Not Reportable 05/31/18 04:50 Polychromasia Not Reportable 05/31/18 04:50 Hypochromasia Few 05/31/18 04:50 Poikilocytosis Not Reportable 05/31/18 04:50 Anisocytosis 1+ 05/31/18 04:50 Microcytosis Few 05/31/18 04:50 Macrocytosis Not Reportable 05/31/18 04:50 Spherocytes Not Reportable 05/31/18 04:50 Pappenheimer Bodies Not Reportable 05/31/18 04:50 Sickle Cells Not Reportable 05/31/18 04:50 Target Cells Rare 05/31/18 04:50 Tear Drop Cells Not Reportable 05/31/18 04:50 Ovalocytes 1+ 05/31/18 04:50 Helmet Cells Not Reportable 05/31/18 04:50 [place]-Radar Base Bodies Not Reportable 05/31/18 04:50 [place] Rings Not Reportable 05/31/18 04:50 [place] Cells Not Reportable 05/31/18 04:50 Bite Cells Not Reportable 05/31/18 04:50 Crenated Cell Not Reportable 05/31/18 04:50 Elliptocytes Not Reportable 05/31/18 04:50 Acanthocytes (Spur) Not Reportable 05/31/18 04:50 Rouleaux Not Reportable 05/31/18 04:50 Hemoglobin C Crystals Not Reportable 05/31/18 04:50 Schistocytes Not Reportable 05/31/18 04:50 Malaria parasites Not Reportable 05/31/18 04:50 Mk Bodies Not Reportable 05/31/18 04:50 Hem Pathologist Commnt No 05/31/18 04:50 PT 17.1 Sec. (12.2-14.9) H 06/03/18 09:18 INR 1.34 (0.87-1.13) H 06/03/18 09:18 APTT 40.0 Sec. (24.2-36.6) H 05/23/18 09:03 POC ABG pH 7.362 (7.35-7.45) 05/31/18 09:58 POC ABG pCO2 36.4 (35-45) 05/31/18 09:58 POC ABG pO2 101 (80-105) 05/31/18 09:58 POC ABG HCO3 20.7 05/31/18 09:58 POC ABG Total CO2 22 05/31/18 09:58 POC ABG O2 Sat 98 05/31/18 09:58 POC ABG Base Excess -5 05/31/18 09:58 FiO2 40 % 05/31/18 09:58 Sodium 136 mmol/L (137-145) L 06/03/18 03:31 Potassium 4.0 mmol/L (3.6-5.0) 06/03/18 03:31 Chloride 98.1 mmol/L (98-107) 06/03/18 03:31 Carbon Dioxide 25 mmol/L (22-30) 06/03/18 03:31 Anion Gap 17 mmol/L 06/03/18 03:31 BUN 41 mg/dL (9-20) H 06/03/18 03:31 Creatinine 3.4 mg/dL (0.8-1.5) H 06/03/18 03:31 Estimated GFR 23 ml/min 06/03/18 03:31 BUN/Creatinine Ratio 12 % 06/03/18 03:31 Glucose 129 mg/dL (75-100) H 06/03/18 03:31 POC Glucose 125 (70-105) H 06/03/18 00:54 Hemoglobin A1c 5.7 % (4-6) 05/14/18 05:05 Lactic Acid 3.80 mmol/L (0.7-2.0) H* 05/26/18 11:00 Calcium 7.4 mg/dL (8.4-10.2) L 06/03/18 03:31 Phosphorus 4.10 mg/dL (2.5-4.5) 06/03/18 03:31 Magnesium 2.00 mg/dL (1.7-2.3) 06/03/18 03:31 Iron 24 ug/dL (49-181) L 05/16/18 07:02 TIBC 160 mcg/dL (250-450) L 05/16/18 07:02 Ferritin 325.8 ng/mL (13.0-400.0) 05/16/18 07:02 Total Bilirubin 0.50 mg/dL (0.1-1.2) 06/02/18 Unknown AST 46 units/L (5-40) H 06/02/18 Unknown ALT 66 units/L (7-56) H 06/02/18 Unknown Alkaline Phosphatase 119 units/L (35-129) 06/02/18 Unknown Total Creatine Kinase 156 units/L (55-170) 05/25/18 22:46 CK-MB (CK-2) 2.3 ng/mL (0.0-4.0) 05/25/18 22:46 CK-MB (CK-2) Rel Index 1.4 (0-4) 05/25/18 22:46 C-Reactive Protein 11.10 mg/dL (0.00-1.30) H 06/03/18 09:18 Total Protein 5.7 g/dL (6.3-8.2) L 06/02/18 Unknown Albumin 1.5 g/dL (3.9-5) L 06/02/18 Unknown Albumin/Globulin Ratio 0.4 % 06/02/18 Unknown Triglycerides 112 mg/dL (2-149) 06/03/18 03:31 Prostate Specific Ag 0.96 ng/mL (0.00-4.00) 05/14/18 13:29 Vitamin B12 359.2 pg/mL (211-911) 05/16/18 07:02 Folate 5.39 ng/mL (7.3-26.0) L 05/16/18 07:02 TSH 3.180 mlU/mL (0.270-4.200) 05/14/18 05:05 PTH Intact 65.37 pg/mL (15-65) H 05/14/18 05:05 Urine Color [place] (Yellow) 05/27/18 Unknown Urine Turbidity Cloudy (Clear) 05/27/18 Unknown Urine pH 5.0 (5.0-7.0) 05/27/18 Unknown Ur Specific [place] 1.026 (1.003-1.030) 05/27/18 Unknown Urine Protein 100 mg/dl mg/dL (Negative) 05/27/18 Unknown Urine Glucose (UA) 50 mg/dL (Negative) 05/27/18 Unknown Urine Ketones Neg mg/dL (Negative) 05/27/18 Unknown Urine Blood Lg (Negative) 05/27/18 Unknown Urine Nitrite Neg (Negative) 05/27/18 Unknown Urine Bilirubin Neg (Negative) 05/27/18 Unknown Urine Urobilinogen < 2.0 mg/dL (<2.0) 05/27/18 Unknown Ur Leukocyte Esterase Mod (Negative) 05/27/18 Unknown Urine WBC (Auto) 120.0 /HPF (0.0-6.0) H 05/27/18 Unknown Urine RBC (Auto) 35.0 /HPF (0.0-6.0) 05/27/18 Unknown U Epithel Cells (Auto) 3.0 /HPF (0-13.0) 05/27/18 Unknown Urine Bacteria (Auto) 1+ /HPF (Negative) 05/27/18 Unknown Urine WBC Clumps Few /HPF 05/13/18 19:39 Urine Mucus Few /HPF 05/27/18 Unknown Urine Yeast (Budding) 2+ /HPF 05/21/18 15:30 Urine Creatinine 66.0 mg/dL (0.1-20.0) H 05/13/18 19:39 Urine Sodium 60 mmol/L 05/13/18 19:39 Urine Potassium 8.69 mmol/L 05/13/18 19:39 Urine Chloride 27.8 mmolL (110-250) L 05/13/18 19:39 Urine Total Protein 24 mg/dL (5-11.8) H 05/13/18 19:39 Vancomycin Trough 25.1 ug/mL (5.0-20.0) H 05/25/18 22:46 Random Vancomycin 34.3 ug/mL (0-40.0) 05/26/18 11:01 Urine Opiates Screen Presumptive negative 05/13/18 19:39 Urine Methadone Screen Presumptive negative 05/13/18 19:39 Ur Barbiturates Screen Presumptive negative 05/13/18 19:39 Ur Phencyclidine Scrn Presumptive negative 05/13/18 19:39 Ur Amphetamines Screen Presumptive negative 05/13/18 19:39 U Benzodiazepines Scrn Presumptive negative 05/13/18 19:39 Urine Cocaine Screen Presumptive negative 05/13/18 19:39 U Marijuana (THC) Screen Presumptive negative 05/13/18 19:39 Drugs of Abuse Note Disclamer 05/13/18 19:39 ZEUS Screen Negative (Negative) 05/14/18 05:05 Proteinase 3 (PR3) Ab <1.0 AI (<1.0) 05/14/18 05:05 Myeloperoxidase Ab <1.0 AI (<1.0) 05/14/18 05:05 Complement C3 147 mg/dL (82-185) 05/14/18 05:05 Complement C4 45 mg/dL (15-53) 05/14/18 05:05 Hepatitis A IgM Ab Nonreactive (NonReactive) 05/27/18 13:41 Hep Bs Antigen Non-reactive (Negative) 05/27/18 13:41 Hep B Core IgM Ab Non-reactive (NonReactive) 05/27/18 13:41 Hepatitis C Antibody Non-reactive (NonReactive) 05/27/18 13:41 Miscellaneous Test Flexitest 1 H 05/27/18 13:02 Blood Type O POSITIVE 06/02/18 13:05 Antibody Screen Negative 06/02/18 13:05 Crossmatch See Detail 05/22/18 11:23
[2018-06-03] MEDS ORDERED: XYLOCAINE 1% 20 mL ONE (11:33)
--- NOTE | 2018-06-03 12:44 | Progress Note ---
Assessment and Plan Pt awake, alert. feeling well. no compl. pulled ng tube Abd - non tender slightly less distended awaiting paracentesis surgically stable Selected Entries 06/01/18 06/01/18 06/02/18 07:00 08:00 08:50 Temperature 98.7 F 96.7 F L Pulse Rate 112 H 110 H Respiratory 36 H 26 H Rate Blood Pressure 141/90 156/86 Blood Pressure [Right] 06/03/18 12:00 Temperature 98.2 F Pulse Rate Respiratory 18 Rate Blood Pressure Blood Pressure 151/101 [Right] Laboratory Tests 06/02/18 06/02/18 Unknown Unknown WBC 20.8 H Hgb 7.7 L Hct 23.0 L Sodium 136 L Potassium 3.5 L Chloride 96.9 L Carbon Dioxide 22 BUN 62 H Creatinine 4.9 H Total Bilirubin 0.50 AST 46 H ALT 66 H Alkaline Phosphatase 119 Objective Vital Signs - 12hr 06/03/18 06/03/18 06/03/18 03:48 04:00 04:15 Temperature 98.1 F Pulse Rate 106 H 115 H 113 H Respiratory 24 18 Rate Respiratory Rate [Abdomen] Blood Pressure Blood Pressure 145/97 [Right] O2 Sat by Pulse 98 100 Oximetry 06/03/18 06/03/18 06/03/18 05:14 08:00 10:00 Temperature 98.2 F Pulse Rate 113 H 110 H Respiratory 18 Rate Respiratory 22 Rate [Abdomen] Blood Pressure 157/101 157/97 Blood Pressure [Right] O2 Sat by Pulse 88 Oximetry 06/03/18 12:00 Temperature 98.2 F Pulse Rate 107 H Respiratory 18 Rate Respiratory Rate [Abdomen] Blood Pressure Blood Pressure 151/101 [Right] O2 Sat by Pulse 95 Oximetry - Labs 06/02/18 Unknown 06/03/18 03:31 Diabetes panel 06/03/18 Range/Units 03:31 Sodium 136 L (137-145) mmol/L Potassium 4.0 (3.6-5.0) mmol/L Chloride 98.1 (98-107) mmol/L Carbon Dioxide 25 (22-30) mmol/L BUN 41 H (9-20) mg/dL Creatinine 3.4 H (0.8-1.5) mg/dL Glucose 129 H (75-100) mg/dL Calcium 7.4 L (8.4-10.2) mg/dL Triglycerides 112 (2-149) mg/dL Calcium panel 06/03/18 Range/Units 03:31 Calcium 7.4 L (8.4-10.2) mg/dL Phosphorus 4.10 (2.5-4.5) mg/dL Pituitary panel 06/03/18 Range/Units 03:31 Sodium 136 L (137-145) mmol/L Potassium 4.0 (3.6-5.0) mmol/L Chloride 98.1 (98-107) mmol/L Carbon Dioxide 25 (22-30) mmol/L BUN 41 H (9-20) mg/dL Creatinine 3.4 H (0.8-1.5) mg/dL Glucose 129 H (75-100) mg/dL Calcium 7.4 L (8.4-10.2) mg/dL Adrenal panel 06/03/18 Range/Units 03:31 Sodium 136 L (137-145) mmol/L Potassium 4.0 (3.6-5.0) mmol/L Chloride 98.1 (98-107) mmol/L Carbon Dioxide 25 (22-30) mmol/L BUN 41 H (9-20) mg/dL Creatinine 3.4 H (0.8-1.5) mg/dL Glucose 129 H (75-100) mg/dL Calcium 7.4 L (8.4-10.2) mg/dL
[2018-06-03] MEDS: MAXIPIME/NS 2 GM/100 ML 2 GM/100 ML BAG IV SCH (13:17)
[2018-06-03] MEDS: PEPCID IV SCH (13:17)
--- NOTE | 2018-06-03 13:18 | Ultrasound Report ---
ULTRASOUND PARACENTESIS History: Abdominal ascites Description of procedure: Informed consent was attained. Sterile technique was utilized. Scans of the 4 quadrants demonstrates a complex loculated fluid in the left lower quadrant. There was no large simple ascites. It was decided to sample this collection. Using ultrasound guidance, a 5 [place] centesis needle was advanced into the left lower quadrant peritoneal space. There was spontaneous return of cloudy fluid. 270 cc of fluid was aspirated. Samples were sent to the laboratory for analysis. Impression: Successful diagnostic paracentesis in the left lower quadrant as described.
--- NOTE | 2018-06-03 13:24 | Procedure Note ---
Date of procedure: 06/03/18 Pre-op diagnosis: ascites Post-op diagnosis: other (complex ascites) Procedure: us paracentesis Anesthesia: local Surgeon: DELMAR CARLOS Estimated blood loss: none Pathology: list (120cc) Specimen disposition: to lab Condition: stable Disposition: floor
[2018-06-03 14:27] LABS: Monocytes Body Fluid 0 %; Total Cells Counted 100 /mm3
--- NOTE | 2018-06-03 19:14 | Progress Note ---
Assessment and Plan Patient alert, awake and weak. Resting on 4 litres O2.No acute respiratory distress.O2 saturation 95% on 4 litres O2. Patient afebrile.He has leukocytosis.Patients chest xray reported airspace disease left lower lobe.Patient has history of smoking in the past. He works as [employer]. - Patient Problems (1) Sepsis Current Visit: Yes Status: Acute Plan to address problem: Patient is on cepefime and Metranidazole. (2) Acute renal failure Current Visit: Yes Status: Acute Qualifiers: Acute renal failure type: unspecified Qualified Code(s): N17.9 - Acute kidney failure, unspecified Plan to address problem: Management as per nephrology. (3) Hypertensive urgency, malignant Current Visit: Yes Status: Acute Plan to address problem: Management as per primary care. (4) Intestinal obstruction Current Visit: Yes Status: Acute Plan to address problem: Management as per primary and surgery. (5) Pelvic mass in male Current Visit: Yes Status: Acute Plan to address problem: Management as per primary and urology. (6) UTI (urinary tract infection) Current Visit: Yes Status: Acute Plan to address problem: Patient is on cefepime. (7) Pneumonia involving left lung Current Visit: Yes Status: Acute Plan to address problem: Patient is on cefepime and metranidazole. Subjective Date of service: 06/03/18 Principal diagnosis: sq cell ca and pelvic mass Interval history: Patient alert, awake and weak. Resting on 4 litres O2.No acute respiratory distress.O2 saturation 95% on 4 litres O2. Patient afebrile.He has leukocytosis.Patients chest xray reported airspace disease left lower lobe.Patient has history of smoking in the past. He works as [employer]. Objective Vital Signs - 12hr 06/03/18 06/03/18 06/03/18 08:00 10:00 12:00 Temperature 98.2 F 98.2 F Pulse Rate 110 H 107 H Respiratory 18 18 Rate Respiratory 22 Rate [Abdomen] Blood Pressure 157/97 Blood Pressure 151/101 [Right] O2 Sat by Pulse 88 95 95 Oximetry 06/03/18 06/03/18 06/03/18 12:54 13:17 16:00 Temperature Pulse Rate 112 H 112 H 110 H Respiratory Rate Respiratory Rate [Abdomen] Blood Pressure 150/100 Blood Pressure [Right] O2 Sat by Pulse Oximetry 06/03/18 06/03/18 16:06 18:03 Temperature 97.6 F Pulse Rate 97 H 104 H Respiratory 18 Rate Respiratory Rate [Abdomen] Blood Pressure 163/101 163/101 Blood Pressure [Right] O2 Sat by Pulse 97 Oximetry Constitutional: no acute distress, alert, other (chronically ill looking middle aged AAM, normocephalic and atraumatic, ) Eyes: non-icteric ENT: oropharynx moist Neck: supple, no lymphadenopathy, no JVD, other (no thyromegaly) Effort: mildly labored Ascultation: Bilateral: diminished breath sounds, rhonchi (scant in bases) Percussion: Bilateral: not dull Cardiovascular: regular rate and rhythm, other (No R/M) Gastrointestinal: hypoactive bowel sounds, soft, tender (mild), other (Distended ; No palpable HSM, bilateral nephrostomy tubes,) Integumentary: other (femoral vascath) Extremities: no cyanosis, no edema, pulses normal, no ischemia or petechiae Neurologic: normal mental status, non-focal exam, pupils equal and round, other (weak) Psychiatric: mood appropriate, affect normal CBC and BMP: 06/02/18 Unknown 06/03/18 03:31 ABG, PT/INR, D-dimer: ABG POC ABG pH 7.362 (7.35-7.45) 05/31/18 09:58 POC ABG pCO2 36.4 (35-45) 05/31/18 09:58 POC ABG pO2 101 (80-105) 05/31/18 09:58 POC ABG HCO3 20.7 05/31/18 09:58 POC ABG Total CO2 22 05/31/18 09:58 POC ABG O2 Sat 98 05/31/18 09:58 PT/INR, D-dimer PT 17.1 Sec. (12.2-14.9) H 06/03/18 09:18 INR 1.34 (0.87-1.13) H 06/03/18 09:18 Abnormal lab findings: Abnormal Labs 05/13/18 05/13/18 05/13/18 04:27 04:27 19:39 WBC RBC 3.13 L Hgb 9.4 L Hct 26.8 L MCHC 35 H RDW Plt Count Lymph % (Auto) [place] % (Auto) 9.6 H Lymph # [place] # Seg Neutrophils % Seg Neuts % (Manual) Lymphocytes % (Manual) Seg Neutrophils # Seg Neutrophils # Man Lymphocytes # (Manual) PT INR APTT POC ABG pH POC ABG pCO2 POC ABG pO2 Sodium 132 L Potassium 5.5 H Chloride 94.1 L Carbon Dioxide 19 L BUN 72 H Creatinine 14.4 H Glucose POC Glucose Lactic Acid Calcium Phosphorus Magnesium Iron TIBC AST ALT Alkaline Phosphatase Total Creatine Kinase C-Reactive Protein Total Protein Albumin 2.8 L Folate PTH Intact Urine WBC (Auto) Urine Creatinine 66.0 H Urine Chloride 27.8 L Urine Total Protein 24 H Vancomycin Trough Miscellaneous Test Crossmatch 05/13/18 05/14/18 05/14/18 20:00 05:05 05:05 WBC RBC Hgb Hct MCHC RDW Plt Count Lymph % (Auto) [place] % (Auto) Lymph # [place] # Seg Neutrophils % Seg Neuts % (Manual) Lymphocytes % (Manual) Seg Neutrophils # Seg Neutrophils # Man Lymphocytes # (Manual) PT INR APTT POC ABG pH POC ABG pCO2 POC ABG pO2 Sodium 132 L 131 L Potassium 5.2 H 5.8 H Chloride 93.0 L 95.6 L Carbon Dioxide 19 L 20 L BUN 74 H 81 H Creatinine 15.0 H 16.6 H Glucose 134 H 127 H POC Glucose Lactic Acid Calcium 8.2 L 7.9 L Phosphorus 6.30 H Magnesium Iron TIBC AST ALT Alkaline Phosphatase Total Creatine Kinase 236 H C-Reactive Protein Total Protein Albumin Folate PTH Intact 65.37 H Urine WBC (Auto) Urine Creatinine Urine Chloride Urine Total Protein Vancomycin Trough Miscellaneous Test Crossmatch 05/14/18 05/14/18 05/14/18 09:28 10:56 13:29 WBC RBC Hgb Hct MCHC RDW Plt Count Lymph % (Auto) [place] % (Auto) Lymph # [place] # Seg Neutrophils % Seg Neuts % (Manual) Lymphocytes % (Manual) Seg Neutrophils # Seg Neutrophils # Man Lymphocytes # (Manual) PT INR APTT 38.2 H POC ABG pH POC ABG pCO2 POC ABG pO2 Sodium Potassium Chloride Carbon Dioxide BUN Creatinine Glucose POC Glucose 127 H 126 H Lactic Acid Calcium Phosphorus Magnesium Iron TIBC AST ALT Alkaline Phosphatase Total Creatine Kinase C-Reactive Protein Total Protein Albumin Folate PTH Intact Urine WBC (Auto) Urine Creatinine Urine Chloride Urine Total Protein Vancomycin Trough Miscellaneous Test Crossmatch 05/15/18 05/15/18 05/16/18 08:06 08:06 07:02 WBC RBC 2.84 L 2.74 L Hgb 8.5 L 8.5 L Hct 24.2 L 23.5 L MCHC 35 H 36 H RDW Plt Count Lymph % (Auto) [place] % (Auto) 10.4 H 11.0 H Lymph # 1.1 L [place] # 0.9 H Seg Neutrophils % 72.6 H Seg Neuts % (Manual) Lymphocytes % (Manual) Seg Neutrophils # Seg Neutrophils # Man Lymphocytes # (Manual) PT INR APTT POC ABG pH POC ABG pCO2 POC ABG pO2 Sodium Potassium Chloride Carbon Dioxide 19 L BUN 66 H Creatinine 12.0 H Glucose 115 H POC Glucose Lactic Acid Calcium 8.1 L Phosphorus Magnesium Iron TIBC AST ALT Alkaline Phosphatase Total Creatine Kinase C-Reactive Protein Total Protein Albumin Folate PTH Intact Urine WBC (Auto) Urine Creatinine Urine Chloride Urine Total Protein Vancomycin Trough Miscellaneous Test Crossmatch 05/16/18 05/16/18 05/17/18 07:02 07:02 05:08 WBC RBC 2.78 L Hgb 8.2 L Hct 23.9 L MCHC RDW Plt Count Lymph % (Auto) [place] % (Auto) 13.9 H Lymph # [place] # 0.9 H Seg Neutrophils % Seg Neuts % (Manual) Lymphocytes % (Manual) Seg Neutrophils # Seg Neutrophils # Man Lymphocytes # (Manual) PT INR APTT POC ABG pH POC ABG pCO2 POC ABG pO2 Sodium Potassium Chloride Carbon Dioxide BUN 28 H Creatinine 2.4 H D Glucose POC Glucose Lactic Acid Calcium 8.3 L Phosphorus Magnesium 1.50 L Iron 24 L TIBC 160 L AST ALT Alkaline Phosphatase Total Creatine Kinase C-Reactive Protein Total Protein Albumin Folate 5.39 L PTH Intact Urine WBC (Auto) Urine Creatinine Urine Chloride Urine Total Protein Vancomycin Trough Miscellaneous Test Crossmatch 05/17/18 05/18/18 05/18/18 05:08 05:57 05:57 WBC RBC 2.79 L Hgb 8.3 L Hct 24.0 L MCHC 35 H RDW Plt Count Lymph % (Auto) [place] % (Auto) 11.8 H Lymph # [place] # 0.9 H Seg Neutrophils % Seg Neuts % (Manual) Lymphocytes % (Manual) Seg Neutrophils # Seg Neutrophils # Man Lymphocytes # (Manual) PT INR APTT POC ABG pH POC ABG pCO2 POC ABG pO2 Sodium Potassium Chloride Carbon Dioxide BUN Creatinine Glucose POC Glucose Lactic Acid Calcium 7.7 L 8.0 L Phosphorus Magnesium 1.60 L Iron TIBC AST ALT Alkaline Phosphatase Total Creatine Kinase C-Reactive Protein Total Protein Albumin Folate PTH Intact Urine WBC (Auto) Urine Creatinine Urine Chloride Urine Total Protein Vancomycin Trough Miscellaneous Test Crossmatch 05/19/18 05/19/18 05/20/18 05:33 05:33 05:38 WBC RBC 2.95 L Hgb 8.8 L Hct 25.8 L MCHC RDW Plt Count Lymph % (Auto) 10.1 L [place] % (Auto) Lymph # 1.1 L [place] # Seg Neutrophils % 85.2 H Seg Neuts % (Manual) Lymphocytes % (Manual) Seg Neutrophils # 9.0 H Seg Neutrophils # Man Lymphocytes # (Manual) PT INR APTT POC ABG pH POC ABG pCO2 POC ABG pO2 Sodium 135 L Potassium Chloride Carbon Dioxide BUN Creatinine Glucose 132 H POC Glucose Lactic Acid Calcium 7.8 L 8.3 L Phosphorus Magnesium 1.40 L Iron TIBC AST ALT Alkaline Phosphatase Total Creatine Kinase C-Reactive Protein Total Protein Albumin Folate PTH Intact Urine WBC (Auto) Urine Creatinine Urine Chloride Urine Total Protein Vancomycin Trough Miscellaneous Test Crossmatch 05/21/18 05/21/18 05/22/18 04:46 15:30 06:49 WBC 20.0 H RBC 2.70 L Hgb 7.8 L Hct 23.3 L MCHC RDW Plt Count Lymph % (Auto) [place] % (Auto) Lymph # [place] # Seg Neutrophils % Seg Neuts % (Manual) 85.0 H Lymphocytes % (Manual) 4.0 L Seg Neutrophils # Seg Neutrophils # Man 17.0 H Lymphocytes # (Manual) 0.8 L PT INR APTT POC ABG pH POC ABG pCO2 POC ABG pO2 Sodium 135 L Potassium 3.5 L Chloride Carbon Dioxide 21 L BUN 22 H Creatinine Glucose POC Glucose Lactic Acid Calcium 8.1 L Phosphorus Magnesium Iron TIBC AST ALT Alkaline Phosphatase Total Creatine Kinase C-Reactive Protein Total Protein Albumin Folate PTH Intact Urine WBC (Auto) 28.0 H Urine Creatinine Urine Chloride Urine Total Protein Vancomycin Trough Miscellaneous Test Crossmatch 05/22/18 05/22/18 05/23/18 06:49 11:23 09:03 WBC RBC Hgb Hct MCHC RDW Plt Count Lymph % (Auto) [place] % (Auto) Lymph # [place] # Seg Neutrophils % Seg Neuts % (Manual) Lymphocytes % (Manual) Seg Neutrophils # Seg Neutrophils # Man Lymphocytes # (Manual) PT INR APTT POC ABG pH POC ABG pCO2 POC ABG pO2 Sodium 134 L Potassium 3.5 L Chloride Carbon Dioxide 21 L BUN 35 H 36 H Creatinine 1.7 H Glucose 107 H POC Glucose Lactic Acid Calcium 7.9 L Phosphorus Magnesium 2.50 H Iron TIBC AST ALT Alkaline Phosphatase Total Creatine Kinase C-Reactive Protein Total Protein Albumin Folate PTH Intact Urine WBC (Auto) Urine Creatinine Urine Chloride Urine Total Protein Vancomycin Trough Miscellaneous Test Crossmatch See Detail 05/23/18 05/23/18 05/23/18 09:03 09:03 17:34 WBC 26.3 H RBC 3.57 L Hgb 10.4 L Hct 31.1 L D MCHC RDW Plt Count Lymph % (Auto) [place] % (Auto) Lymph # [place] # Seg Neutrophils % Seg Neuts % (Manual) Lymphocytes % (Manual) Seg Neutrophils # Seg Neutrophils # Man Lymphocytes # (Manual) PT 18.3 H INR 1.43 H APTT 40.0 H POC ABG pH POC ABG pCO2 POC ABG pO2 Sodium Potassium Chloride Carbon Dioxide BUN Creatinine Glucose POC Glucose 108 H Lactic Acid Calcium Phosphorus Magnesium Iron TIBC AST ALT Alkaline Phosphatase Total Creatine Kinase C-Reactive Protein Total Protein Albumin Folate PTH Intact Urine WBC (Auto) Urine Creatinine Urine Chloride Urine Total Protein Vancomycin Trough Miscellaneous Test Crossmatch 05/23/18 05/24/18 05/24/18 21:14 04:43 08:04 WBC RBC Hgb Hct MCHC RDW Plt Count Lymph % (Auto) [place] % (Auto) Lymph # [place] # Seg Neutrophils % Seg Neuts % (Manual) Lymphocytes % (Manual) Seg Neutrophils # Seg Neutrophils # Man Lymphocytes # (Manual) PT INR APTT POC ABG pH POC ABG pCO2 POC ABG pO2 Sodium 146 H Potassium Chloride 108.6 H Carbon Dioxide BUN 33 H Creatinine Glucose 109 H POC Glucose 110 H 106 H Lactic Acid Calcium 8.3 L Phosphorus Magnesium 2.50 H Iron TIBC AST ALT Alkaline Phosphatase Total Creatine Kinase C-Reactive Protein Total Protein Albumin Folate PTH Intact Urine WBC (Auto) Urine Creatinine Urine Chloride Urine Total Protein Vancomycin Trough Miscellaneous Test Crossmatch 05/25/18 05/25/18 05/25/18 05:42 05:49 19:50 WBC RBC Hgb Hct MCHC RDW Plt Count Lymph % (Auto) [place] % (Auto) Lymph # [place] # Seg Neutrophils % Seg Neuts % (Manual) Lymphocytes % (Manual) Seg Neutrophils # Seg Neutrophils # Man Lymphocytes # (Manual) PT INR APTT POC ABG pH POC ABG pCO2 POC ABG pO2 Sodium 150 H Potassium Chloride 112.5 H Carbon Dioxide BUN 34 H Creatinine Glucose 102 H POC Glucose 107 H Lactic Acid Calcium Phosphorus Magnesium Iron TIBC AST ALT Alkaline Phosphatase Total Creatine Kinase C-Reactive Protein 34.50 H Total Protein Albumin Folate PTH Intact Urine WBC (Auto) Urine Creatinine Urine Chloride Urine Total Protein Vancomycin Trough Miscellaneous Test Crossmatch 05/25/18 05/25/18 05/25/18 19:50 21:05 22:46 WBC RBC Hgb Hct MCHC RDW Plt Count Lymph % (Auto) [place] % (Auto) Lymph # [place] # Seg Neutrophils % Seg Neuts % (Manual) Lymphocytes % (Manual) Seg Neutrophils # Seg Neutrophils # Man Lymphocytes # (Manual) PT INR APTT POC ABG pH 7.483 H POC ABG pCO2 24.0 L POC ABG pO2 72 L Sodium Potassium Chloride Carbon Dioxide BUN Creatinine Glucose POC Glucose Lactic Acid 5.90 H* Calcium Phosphorus Magnesium Iron TIBC AST ALT Alkaline Phosphatase Total Creatine Kinase C-Reactive Protein Total Protein Albumin Folate PTH Intact Urine WBC (Auto) Urine Creatinine Urine Chloride Urine Total Protein Vancomycin Trough 25.1 H Miscellaneous Test Crossmatch 05/25/18 05/26/18 05/26/18 22:46 00:21 00:51 WBC RBC Hgb Hct MCHC RDW Plt Count Lymph % (Auto) [place] % (Auto) Lymph # [place] # Seg Neutrophils % Seg Neuts % (Manual) Lymphocytes % (Manual) Seg Neutrophils # Seg Neutrophils # Man Lymphocytes # (Manual) PT INR APTT POC ABG pH POC ABG pCO2 POC ABG pO2 Sodium Potassium Chloride Carbon Dioxide BUN Creatinine Glucose POC Glucose 133 H Lactic Acid 8.10 H* 6.20 H* Calcium Phosphorus Magnesium Iron TIBC AST ALT Alkaline Phosphatase Total Creatine Kinase C-Reactive Protein Total Protein Albumin Folate PTH Intact Urine WBC (Auto) Urine Creatinine Urine Chloride Urine Total Protein Vancomycin Trough Miscellaneous Test Crossmatch 05/26/18 05/26/18 05/26/18 01:13 02:24 02:24 WBC 18.7 H RBC Hgb 11.6 L Hct MCHC RDW Plt Count Lymph % (Auto) [place] % (Auto) Lymph # [place] # Seg Neutrophils % Seg Neuts % (Manual) Lymphocytes % (Manual) Seg Neutrophils # Seg Neutrophils # Man Lymphocytes # (Manual) PT INR APTT POC ABG pH POC ABG pCO2 POC ABG pO2 Sodium 147 H Potassium 6.2 H* D Chloride 111.9 H Carbon Dioxide 19 L BUN 80 H Creatinine 5.1 H D Glucose 112 H POC Glucose Lactic Acid 5.20 H* Calcium 6.7 L D Phosphorus Magnesium Iron TIBC AST ALT Alkaline Phosphatase Total Creatine Kinase C-Reactive Protein Total Protein Albumin Folate PTH Intact Urine WBC (Auto) Urine Creatinine Urine Chloride Urine Total Protein Vancomycin Trough Miscellaneous Test Crossmatch 05/26/18 05/26/18 05/26/18 04:20 04:20 05:39 WBC RBC Hgb Hct MCHC RDW Plt Count Lymph % (Auto) [place] % (Auto) Lymph # [place] # Seg Neutrophils % Seg Neuts % (Manual) Lymphocytes % (Manual) Seg Neutrophils # Seg Neutrophils # Man Lymphocytes # (Manual) PT INR APTT POC ABG pH POC ABG pCO2 POC ABG pO2 Sodium 150 H Potassium Chloride 110.0 H Carbon Dioxide 19 L BUN 66 H Creatinine Glucose 166 H POC Glucose 187 H Lactic Acid 5.10 H* Calcium 6.9 L Phosphorus 6.70 H D Magnesium Iron TIBC AST ALT Alkaline Phosphatase Total Creatine Kinase C-Reactive Protein Total Protein Albumin Folate PTH Intact Urine WBC (Auto) Urine Creatinine Urine Chloride Urine Total Protein Vancomycin Trough Miscellaneous Test Crossmatch 05/26/18 05/26/18 05/26/18 06:02 07:29 11:00 WBC RBC Hgb Hct MCHC RDW Plt Count Lymph % (Auto) [place] % (Auto) Lymph # [place] # Seg Neutrophils % Seg Neuts % (Manual) Lymphocytes % (Manual) Seg Neutrophils # Seg Neutrophils # Man Lymphocytes # (Manual) PT INR APTT POC ABG pH POC ABG pCO2 28.8 L POC ABG pO2 Sodium Potassium Chloride Carbon Dioxide BUN Creatinine Glucose POC Glucose Lactic Acid 4.80 H* 3.80 H* Calcium Phosphorus Magnesium Iron TIBC AST ALT Alkaline Phosphatase Total Creatine Kinase C-Reactive Protein Total Protein Albumin Folate PTH Intact Urine WBC (Auto) Urine Creatinine Urine Chloride Urine Total Protein Vancomycin Trough Miscellaneous Test Crossmatch 05/26/18 05/26/18 05/26/18 11:01 12:28 18:00 WBC RBC Hgb Hct MCHC RDW Plt Count Lymph % (Auto) [place] % (Auto) Lymph # [place] # Seg Neutrophils % Seg Neuts % (Manual) Lymphocytes % (Manual) Seg Neutrophils # Seg Neutrophils # Man Lymphocytes # (Manual) PT INR APTT POC ABG pH POC ABG pCO2 POC ABG pO2 Sodium 150 H 151 H Potassium 5.3 H D 6.1 H* Chloride 110.3 H 117.0 H Carbon Dioxide 21 L 20 L BUN 75 H 77 H Creatinine 4.3 H D 4.6 H Glucose 161 H POC Glucose 114 H Lactic Acid Calcium 7.5 L 6.7 L Phosphorus Magnesium Iron TIBC AST 1041 H ALT 406 H Alkaline Phosphatase 281 H Total Creatine Kinase C-Reactive Protein Total Protein 4.4 L Albumin 1.3 L Folate PTH Intact Urine WBC (Auto) Urine Creatinine Urine Chloride Urine Total Protein Vancomycin Trough Miscellaneous Test Crossmatch 05/26/18 05/26/18 05/27/18 18:02 19:17 01:01 WBC 21.7 H RBC 2.70 L Hgb 7.8 L D Hct 24.6 L D MCHC RDW 15.3 H Plt Count Lymph % (Auto) [place] % (Auto) Lymph # [place] # Seg Neutrophils % Seg Neuts % (Manual) 94.0 H Lymphocytes % (Manual) 3.0 L Seg Neutrophils # Seg Neutrophils # Man 20.4 H Lymphocytes # (Manual) 0.7 L PT INR APTT POC ABG pH 7.159 L 7.205 L POC ABG pCO2 54.5 H 53.0 H POC ABG pO2 252 H Sodium Potassium Chloride Carbon Dioxide BUN Creatinine Glucose POC Glucose Lactic Acid Calcium Phosphorus Magnesium Iron TIBC AST ALT Alkaline Phosphatase Total Creatine Kinase C-Reactive Protein Total Protein Albumin Folate PTH Intact Urine WBC (Auto) Urine Creatinine Urine Chloride Urine Total Protein Vancomycin Trough Miscellaneous Test Crossmatch 05/27/18 05/27/18 05/27/18 05:15 05:15 06:11 WBC 24.9 H RBC 2.86 L Hgb 8.1 L Hct 25.9 L MCHC RDW 15.5 H Plt Count Lymph % (Auto) [place] % (Auto) Lymph # [place] # Seg Neutrophils % Seg Neuts % (Manual) Lymphocytes % (Manual) Seg Neutrophils # Seg Neutrophils # Man Lymphocytes # (Manual) PT INR APTT POC ABG pH 7.265 L POC ABG pCO2 46.2 H POC ABG pO2 111 H Sodium 149 H Potassium 6.9 H* Chloride 113.5 H Carbon Dioxide BUN 89 H Creatinine 5.2 H Glucose 118 H POC Glucose Lactic Acid Calcium 7.0 L Phosphorus 9.70 H D Magnesium Iron TIBC AST 876 H ALT 408 H Alkaline Phosphatase Total Creatine Kinase C-Reactive Protein Total Protein 5.2 L Albumin 1.5 L Folate PTH Intact Urine WBC (Auto) Urine Creatinine Urine Chloride Urine Total Protein Vancomycin Trough Miscellaneous Test Crossmatch 05/27/18 05/27/18 05/27/18 08:48 10:22 10:22 WBC RBC Hgb Hct MCHC RDW Plt Count Lymph % (Auto) [place] % (Auto) Lymph # [place] # Seg Neutrophils % Seg Neuts % (Manual) Lymphocytes % (Manual) Seg Neutrophils # Seg Neutrophils # Man Lymphocytes # (Manual) PT INR APTT POC ABG pH POC ABG pCO2 POC ABG pO2 Sodium 146 H Potassium 6.1 H* Chloride 108.2 H Carbon Dioxide 21 L BUN 88 H Creatinine 5.6 H Glucose 163 H POC Glucose 164 H Lactic Acid Calcium 6.7 L Phosphorus Magnesium Iron TIBC AST ALT Alkaline Phosphatase Total Creatine Kinase C-Reactive Protein 40.70 H Total Protein Albumin Folate PTH Intact Urine WBC (Auto) Urine Creatinine Urine Chloride Urine Total Protein Vancomycin Trough Miscellaneous Test Crossmatch 05/27/18 05/27/18 05/27/18 13:02 17:39 23:27 WBC RBC Hgb Hct MCHC RDW Plt Count Lymph % (Auto) [place] % (Auto) Lymph # [place] # Seg Neutrophils % Seg Neuts % (Manual) Lymphocytes % (Manual) Seg Neutrophils # Seg Neutrophils # Man Lymphocytes # (Manual) PT INR APTT POC ABG pH POC ABG pCO2 POC ABG pO2 Sodium Potassium Chloride Carbon Dioxide BUN Creatinine Glucose POC Glucose 59 L 132 H Lactic Acid Calcium Phosphorus Magnesium Iron TIBC AST ALT Alkaline Phosphatase Total Creatine Kinase C-Reactive Protein Total Protein Albumin Folate PTH Intact Urine WBC (Auto) Urine Creatinine Urine Chloride Urine Total Protein Vancomycin Trough Miscellaneous Test Flexitest 1 H Crossmatch 05/27/18 05/28/18 05/28/18 Unknown 04:32 05:00 WBC RBC Hgb Hct MCHC RDW Plt Count Lymph % (Auto) [place] % (Auto) Lymph # [place] # Seg Neutrophils % Seg Neuts % (Manual) Lymphocytes % (Manual) Seg Neutrophils # Seg Neutrophils # Man Lymphocytes # (Manual) PT INR APTT POC ABG pH POC ABG pCO2 POC ABG pO2 134 H Sodium Potassium Chloride Carbon Dioxide BUN 69 H Creatinine 4.4 H Glucose 118 H POC Glucose Lactic Acid Calcium 8.0 L D Phosphorus 6.80 H D Magnesium Iron TIBC AST ALT Alkaline Phosphatase Total Creatine Kinase C-Reactive Protein Total Protein Albumin Folate PTH Intact Urine WBC (Auto) 120.0 H Urine Creatinine Urine Chloride Urine Total Protein Vancomycin Trough Miscellaneous Test Crossmatch 05/28/18 05/28/18 05/28/18 05:00 05:27 13:04 WBC 26.5 H RBC 2.69 L Hgb 7.7 L Hct 23.6 L MCHC RDW Plt Count Lymph % (Auto) [place] % (Auto) Lymph # [place] # Seg Neutrophils % Seg Neuts % (Manual) 96.0 H Lymphocytes % (Manual) 0 L Seg Neutrophils # Seg Neutrophils # Man 25.4 H Lymphocytes # (Manual) 0.0 L PT INR APTT POC ABG pH POC ABG pCO2 POC ABG pO2 Sodium Potassium Chloride Carbon Dioxide BUN Creatinine Glucose POC Glucose 128 H 155 H Lactic Acid Calcium Phosphorus Magnesium Iron TIBC AST ALT Alkaline Phosphatase Total Creatine Kinase C-Reactive Protein Total Protein Albumin Folate PTH Intact Urine WBC (Auto) Urine Creatinine Urine Chloride Urine Total Protein Vancomycin Trough Miscellaneous Test Crossmatch 05/28/18 05/29/18 05/29/18 17:56 03:35 04:00 WBC RBC Hgb Hct MCHC RDW Plt Count Lymph % (Auto) [place] % (Auto) Lymph # [place] # Seg Neutrophils % Seg Neuts % (Manual) Lymphocytes % (Manual) Seg Neutrophils # Seg Neutrophils # Man Lymphocytes # (Manual) PT INR APTT POC ABG pH 7.471 H POC ABG pCO2 POC ABG pO2 78 L Sodium Potassium Chloride Carbon Dioxide BUN 50 H Creatinine 3.9 H Glucose POC Glucose 110 H Lactic Acid Calcium 7.7 L Phosphorus Magnesium 1.50 L Iron TIBC AST 218 H ALT 204 H Alkaline Phosphatase Total Creatine Kinase C-Reactive Protein Total Protein 5.4 L Albumin 1.6 L Folate PTH Intact Urine WBC (Auto) Urine Creatinine Urine Chloride Urine Total Protein Vancomycin Trough Miscellaneous Test Crossmatch 05/29/18 05/29/18 05/30/18 11:51 23:56 04:54 WBC RBC Hgb Hct MCHC RDW Plt Count Lymph % (Auto) [place] % (Auto) Lymph # [place] # Seg Neutrophils % Seg Neuts % (Manual) Lymphocytes % (Manual) Seg Neutrophils # Seg Neutrophils # Man Lymphocytes # (Manual) PT INR APTT POC ABG pH POC ABG pCO2 POC ABG pO2 Sodium Potassium Chloride Carbon Dioxide BUN Creatinine Glucose POC Glucose 131 H 119 H 115 H Lactic Acid Calcium Phosphorus Magnesium Iron TIBC AST ALT Alkaline Phosphatase Total Creatine Kinase C-Reactive Protein Total Protein Albumin Folate PTH Intact Urine WBC (Auto) Urine Creatinine Urine Chloride Urine Total Protein Vancomycin Trough Miscellaneous Test Crossmatch 05/30/18 05/30/18 05/30/18 05:07 05:15 05:15 WBC 16.2 H RBC 2.53 L Hgb 7.4 L Hct 21.9 L MCHC RDW Plt Count Lymph % (Auto) [place] % (Auto) Lymph # [place] # Seg Neutrophils % Seg Neuts % (Manual) Lymphocytes % (Manual) Seg Neutrophils # Seg Neutrophils # Man Lymphocytes # (Manual) PT INR APTT POC ABG pH POC ABG pCO2 34.5 L POC ABG pO2 133 H Sodium 135 L Potassium Chloride 97.5 L Carbon Dioxide BUN 69 H Creatinine 5.4 H Glucose 105 H POC Glucose Lactic Acid Calcium 7.5 L Phosphorus 5.30 H D Magnesium Iron TIBC AST ALT Alkaline Phosphatase Total Creatine Kinase C-Reactive Protein Total Protein Albumin Folate PTH Intact Urine WBC (Auto) Urine Creatinine Urine Chloride Urine Total Protein Vancomycin Trough Miscellaneous Test Crossmatch 05/30/18 05/30/18 05/31/18 12:13 17:10 04:50 WBC 18.7 H RBC 2.86 L Hgb 8.2 L Hct 24.8 L MCHC RDW Plt Count Lymph % (Auto) [place] % (Auto) Lymph # [place] # Seg Neutrophils % Seg Neuts % (Manual) 91.0 H Lymphocytes % (Manual) 2.0 L Seg Neutrophils # Seg Neutrophils # Man 17.0 H Lymphocytes # (Manual) 0.4 L PT INR APTT POC ABG pH POC ABG pCO2 POC ABG pO2 Sodium Potassium Chloride Carbon Dioxide BUN Creatinine Glucose POC Glucose 132 H 122 H Lactic Acid Calcium Phosphorus Magnesium Iron TIBC AST ALT Alkaline Phosphatase Total Creatine Kinase C-Reactive Protein Total Protein Albumin Folate PTH Intact Urine WBC (Auto) Urine Creatinine Urine Chloride Urine Total Protein Vancomycin Trough Miscellaneous Test Crossmatch 05/31/18 05/31/18 05/31/18 04:50 05:45 11:37 WBC RBC Hgb Hct MCHC RDW Plt Count Lymph % (Auto) [place] % (Auto) Lymph # [place] # Seg Neutrophils % Seg Neuts % (Manual) Lymphocytes % (Manual) Seg Neutrophils # Seg Neutrophils # Man Lymphocytes # (Manual) PT INR APTT POC ABG pH POC ABG pCO2 POC ABG pO2 Sodium 132 L Potassium Chloride 92.4 L Carbon Dioxide BUN 77 H Creatinine 5.9 H Glucose POC Glucose 111 H 136 H Lactic Acid Calcium 7.3 L Phosphorus 6.40 H D Magnesium Iron TIBC AST ALT Alkaline Phosphatase Total Creatine Kinase C-Reactive Protein Total Protein Albumin Folate PTH Intact Urine WBC (Auto) Urine Creatinine Urine Chloride Urine Total Protein Vancomycin Trough Miscellaneous Test Crossmatch 05/31/18 06/01/18 06/01/18 17:52 00:09 04:00 WBC RBC Hgb Hct MCHC RDW Plt Count Lymph % (Auto) [place] % (Auto) Lymph # [place] # Seg Neutrophils % Seg Neuts % (Manual) Lymphocytes % (Manual) Seg Neutrophils # Seg Neutrophils # Man Lymphocytes # (Manual) PT INR APTT POC ABG pH POC ABG pCO2 POC ABG pO2 Sodium Potassium Chloride 97.5 L Carbon Dioxide BUN 49 H Creatinine 4.2 H Glucose 104 H POC Glucose 115 H 114 H Lactic Acid Calcium 7.3 L Phosphorus 4.70 H D Magnesium Iron TIBC AST ALT Alkaline Phosphatase Total Creatine Kinase C-Reactive Protein Total Protein Albumin Folate PTH Intact Urine WBC (Auto) Urine Creatinine Urine Chloride Urine Total Protein Vancomycin Trough Miscellaneous Test Crossmatch 06/01/18 06/01/18 06/02/18 11:10 17:56 00:15 WBC RBC Hgb Hct MCHC RDW Plt Count Lymph % (Auto) [place] % (Auto) Lymph # [place] # Seg Neutrophils % Seg Neuts % (Manual) Lymphocytes % (Manual) Seg Neutrophils # Seg Neutrophils # Man Lymphocytes # (Manual) PT INR APTT POC ABG pH POC ABG pCO2 POC ABG pO2 Sodium Potassium Chloride Carbon Dioxide BUN Creatinine Glucose POC Glucose 123 H 126 H 135 H Lactic Acid Calcium Phosphorus Magnesium Iron TIBC AST ALT Alkaline Phosphatase Total Creatine Kinase C-Reactive Protein Total Protein Albumin Folate PTH Intact Urine WBC (Auto) Urine Creatinine Urine Chloride Urine Total Protein Vancomycin Trough Miscellaneous Test Crossmatch 06/02/18 06/02/18 06/02/18 05:23 12:42 13:05 WBC RBC Hgb Hct MCHC RDW Plt Count Lymph % (Auto) [place] % (Auto) Lymph # [place] # Seg Neutrophils % Seg Neuts % (Manual) Lymphocytes % (Manual) Seg Neutrophils # Seg Neutrophils # Man Lymphocytes # (Manual) PT 17.1 H INR 1.34 H APTT POC ABG pH POC ABG pCO2 POC ABG pO2 Sodium Potassium Chloride Carbon Dioxide BUN Creatinine Glucose POC Glucose 135 H 142 H Lactic Acid Calcium Phosphorus Magnesium Iron TIBC AST ALT Alkaline Phosphatase Total Creatine Kinase C-Reactive Protein Total Protein Albumin Folate PTH Intact Urine WBC (Auto) Urine Creatinine Urine Chloride Urine Total Protein Vancomycin Trough Miscellaneous Test Crossmatch 06/02/18 06/02/18 06/03/18 Unknown Unknown 00:54 WBC 20.8 H RBC 2.67 L Hgb 7.7 L Hct 23.0 L MCHC RDW Plt Count 500 H Lymph % (Auto) [place] % (Auto) Lymph # [place] # Seg Neutrophils % Seg Neuts % (Manual) Lymphocytes % (Manual) Seg Neutrophils # Seg Neutrophils # Man Lymphocytes # (Manual) PT INR APTT POC ABG pH POC ABG pCO2 POC ABG pO2 Sodium 136 L Potassium 3.5 L Chloride 96.9 L Carbon Dioxide BUN 62 H Creatinine 4.9 H Glucose 133 H POC Glucose 125 H Lactic Acid Calcium 7.2 L Phosphorus 5.00 H Magnesium Iron TIBC AST 46 H ALT 66 H Alkaline Phosphatase Total Creatine Kinase C-Reactive Protein Total Protein 5.7 L Albumin 1.5 L Folate PTH Intact Urine WBC (Auto) Urine Creatinine Urine Chloride Urine Total Protein Vancomycin Trough Miscellaneous Test Crossmatch 06/03/18 06/03/18 06/03/18 03:31 09:18 09:18 WBC RBC Hgb Hct MCHC RDW Plt Count Lymph % (Auto) [place] % (Auto) Lymph # [place] # Seg Neutrophils % Seg Neuts % (Manual) Lymphocytes % (Manual) Seg Neutrophils # Seg Neutrophils # Man Lymphocytes # (Manual) PT 17.1 H INR 1.34 H APTT POC ABG pH POC ABG pCO2 POC ABG pO2 Sodium 136 L Potassium Chloride Carbon Dioxide BUN 41 H Creatinine 3.4 H Glucose 129 H POC Glucose Lactic Acid Calcium 7.4 L Phosphorus Magnesium Iron TIBC AST ALT Alkaline Phosphatase Total Creatine Kinase C-Reactive Protein 11.10 H Total Protein Albumin Folate PTH Intact Urine WBC (Auto) Urine Creatinine Urine Chloride Urine Total Protein Vancomycin Trough Miscellaneous Test Crossmatch 06/03/18 16:07 WBC RBC Hgb Hct MCHC RDW Plt Count Lymph % (Auto) [place] % (Auto) Lymph # [place] # Seg Neutrophils % Seg Neuts % (Manual) Lymphocytes % (Manual) Seg Neutrophils # Seg Neutrophils # Man Lymphocytes # (Manual) PT INR APTT POC ABG pH POC ABG pCO2 POC ABG pO2 Sodium Potassium Chloride Carbon Dioxide BUN Creatinine Glucose POC Glucose 144 H Lactic Acid Calcium Phosphorus Magnesium Iron TIBC AST ALT Alkaline Phosphatase Total Creatine Kinase C-Reactive Protein Total Protein Albumin Folate PTH Intact Urine WBC (Auto) Urine Creatinine Urine Chloride Urine Total Protein Vancomycin Trough Miscellaneous Test Crossmatch Chest x-ray: report reviewed (stable airspace disease left lung base), image reviewed Allied health notes reviewed: nursing
[2018-06-03] MEDS ORDERED: INTRALIPID 20% 250 ML IV SCH (20:00)
[2018-06-03] MEDS ORDERED: TPN ADULT 2,016 ML IV SCH (20:00)
[2018-06-04] MEDS: ATIVAN IV PRN (02:30)
[2018-06-04] MEDS: APRESOLINE PO SCH ×4 (03:02→21:41)
[2018-06-04] MEDS: HumuLIN R SUB-Q SCH ×4 (03:03→17:32)
[2018-06-04] MEDS: FLAGYL 500 MG/100 ML 500 MG/100 ML BAG IV SCH ×4 (03:04→21:39)
[2018-06-04 06:10] LABS: Calcium 7.8 mg/dL (8.4-10.2)
[2018-06-04] MEDS: LOPRESSOR IV SCH ×2 (08:22→09:00)
--- NOTE | 2018-06-04 10:06 | Progress Note ---
Assessment and Plan 1. Acute kidney injury: Recurrent Acute kidney injury. Initial MARYLOU in the setting of bilateral hydronephrosis secondary to pelvic mass , now s/p bilateral nephrostomy. Patient required urgent hemodialysis due to worsening renal function and persistent hyperkalemia. Last dialyzed 2 days ago. Creatinine level appears to be slightly better. Hold HD today. Renal prognosis is guarded. On PPN. Start on IV fluids as patient appears to be volume depleted. 2. Electrolytes: Hyponatremia, improved. Hypokalemia, improved. 3. Bowel obstruction: S/p ostomy. 4. Bilateral hydronephrosis: S/p bilateral nephrostomy. S/p Cysto and drainage of abscess. 5. Respiratory failure: S/p extubated. 6. Hypertension: Started on PO Metoprolol. 7. Anemia. 8. 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 Subjective Date of service: 06/04/18 Principal diagnosis: sq cell ca and pelvic mass Interval history: Patient was seen and examined at the bedside. Objective - Vital Signs Vital signs: Vital Signs - 12hr 06/03/18 06/03/18 06/03/18 22:16 23:30 23:45 Temperature Pulse Rate 94 H 112 H 99 H Respiratory 28 H Rate Respiratory Rate [Abdomen] Blood Pressure 174/103 184/106 Blood Pressure [Right] O2 Sat by Pulse 99 96 Oximetry 06/04/18 06/04/18 06/04/18 00:32 04:29 05:19 Temperature 98.4 F 97.6 F Pulse Rate 96 H 88 Respiratory 20 18 Rate Respiratory Rate [Abdomen] Blood Pressure 165/98 Blood Pressure 184/106 165/68 [Right] O2 Sat by Pulse 95 95 Oximetry 06/04/18 06/04/18 06/04/18 08:00 08:22 09:12 Temperature 98.0 F Pulse Rate 108 H 90 100 H Respiratory 18 Rate Respiratory 22 Rate [Abdomen] Blood Pressure 160/80 151/99 Blood Pressure [Right] O2 Sat by Pulse 97 Oximetry - General Appearance General appearance: well-developed, appears stated age, other (not in distress) EENT: ATNC, PERRL, mucous membranes dry, hearing intact Neck: supple Respiratory: Present: Clear to Ascultation Cardiology: regular, S1S2, no murmurs Gastrointestinal: normoactive bowel sounds, distended, other (bialeral nephrostomy, ostomy and drain noted) Integumentary: no rash Neurologic: no focal deficit, no asterixis Musculoskeletal: other (no edema) - Lab 06/02/18 Unknown 06/04/18 04:31 Most recent lab results Calcium 7.8 mg/dL (8.4-10.2) L 06/04/18 04:31 Phosphorus 4.60 mg/dL (2.5-4.5) H 06/04/18 04:31 Magnesium 2.10 mg/dL (1.7-2.3) 06/04/18 04:31 Urine Creatinine 66.0 mg/dL (0.1-20.0) H 05/13/18 19:39 Urine Sodium 60 mmol/L 05/13/18 19:39 Urine Total Protein 24 mg/dL (5-11.8) H 05/13/18 19:39
[2018-06-04] MEDS: PEPCID IV SCH (10:48)
[2018-06-04] MEDS: MAXIPIME/NS 2 GM/100 ML 2 GM/100 ML BAG IV SCH (10:49)
[2018-06-04] MEDS: FERROUS SULFATE PO SCH ×2 (10:53→21:24)
[2018-06-04] MEDS: FOLVITE PO SCH (10:53)
[2018-06-04] MEDS: HEPARIN SUB-Q SCH ×2 (10:54→21:39)
[2018-06-04] MEDS ORDERED: LOPRESSOR PO SCH (11:00)
[2018-06-04] MEDS ORDERED: PROCRIT SUB-Q ONE ×3 (11:00→21:00)
--- NOTE | 2018-06-04 11:20 | Progress Note ---
Assessment and Plan Pt status quo. no compl. radha d/c of ng well paracentesis yest 120 cc. cults sent Abd exam - status quo. slight amount of liq stool in ostomy bag surgically stable abd series in am r/o persistent ileus Selected Entries 06/04/18 06/04/18 08:22 09:12 Temperature 98.0 F Pulse Rate 90 Respiratory 18 Rate Blood Pressure 151/99 Laboratory Tests 06/04/18 04:31 Sodium 139 Potassium 4.3 Chloride 101.0 Carbon Dioxide 23 Anion Gap 19 BUN 55 H Creatinine 3.7 H Objective Vital Signs - 12hr 06/03/18 06/03/18 06/04/18 23:30 23:45 00:32 Temperature 98.4 F Pulse Rate 112 H 99 H 96 H Respiratory 28 H 20 Rate Respiratory Rate [Abdomen] Blood Pressure 184/106 Blood Pressure 184/106 [Right] O2 Sat by Pulse 99 96 95 Oximetry 06/04/18 06/04/18 06/04/18 04:29 05:19 08:00 Temperature 97.6 F Pulse Rate 88 108 H Respiratory 18 Rate Respiratory 22 Rate [Abdomen] Blood Pressure 165/98 Blood Pressure 165/68 [Right] O2 Sat by Pulse 95 Oximetry 06/04/18 06/04/18 06/04/18 08:22 09:00 09:12 Temperature 98.0 F Pulse Rate 90 100 H 100 H Respiratory 18 Rate Respiratory Rate [Abdomen] Blood Pressure 160/80 158/98 151/99 Blood Pressure [Right] O2 Sat by Pulse 97 Oximetry - Labs 06/02/18 Unknown 06/04/18 04:31 Diabetes panel 06/04/18 Range/Units 04:31 Sodium 139 (137-145) mmol/L Potassium 4.3 (3.6-5.0) mmol/L Chloride 101.0 (98-107) mmol/L Carbon Dioxide 23 (22-30) mmol/L BUN 55 H (9-20) mg/dL Creatinine 3.7 H (0.8-1.5) mg/dL Glucose 151 H (75-100) mg/dL Calcium 7.8 L (8.4-10.2) mg/dL Calcium panel 06/04/18 Range/Units 04:31 Calcium 7.8 L (8.4-10.2) mg/dL Phosphorus 4.60 H (2.5-4.5) mg/dL Pituitary panel 06/04/18 Range/Units 04:31 Sodium 139 (137-145) mmol/L Potassium 4.3 (3.6-5.0) mmol/L Chloride 101.0 (98-107) mmol/L Carbon Dioxide 23 (22-30) mmol/L BUN 55 H (9-20) mg/dL Creatinine 3.7 H (0.8-1.5) mg/dL Glucose 151 H (75-100) mg/dL Calcium 7.8 L (8.4-10.2) mg/dL Adrenal panel 06/04/18 Range/Units 04:31 Sodium 139 (137-145) mmol/L Potassium 4.3 (3.6-5.0) mmol/L Chloride 101.0 (98-107) mmol/L Carbon Dioxide 23 (22-30) mmol/L BUN 55 H (9-20) mg/dL Creatinine 3.7 H (0.8-1.5) mg/dL Glucose 151 H (75-100) mg/dL Calcium 7.8 L (8.4-10.2) mg/dL
--- NOTE | 2018-06-04 11:50 | Progress Note ---
Assessment and Plan Assessment and plan: Abdominal distention/ascites Paracentesis completed on 06/03 Check peritoneal cell count with differential, cytology, total protein, fluid culture, albumin, amylase, LDH and glucose Abdominal series in a.m. to rule out persistent ileus. Bilateral pneumonia (possibly aspiration) Monitor respiratory status Continue Nebs PRN Continue antibiotic Sepsis syndrome (wbc worsen, remains afebrile) Continue cefepime, metrodazole Acute kidney injury (obstructive uropathy vs contrast nephropathy) HD per nephrology Continue to monitor BMP and kidney fuction Had bilateral nephrostomy tubes placed 05/14/[address] Freeman. 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 Continue pain control PRN Leukocytosis( likely due to sepsis) Continue Cefepime Monitor CBC in am Acute deep venous thrombosis Anticoagulation on hold because of anemia, bilateral nephrostomy tubes and abdominal issues Moderate to severe protein calorie malnutrition Continue tube feeding Hypokalemia Potassium and mag replacement as needed Anemia (likey due to CKD, post op blood loss) Continue pain control PRN Continue supportive care History Interval history: No new issues overnight. Hospitalist Physical - Constitutional Vitals: Temp Pulse Resp BP Pulse Ox 98.0 F 100 H 18 151/99 97 06/04/18 09:12 06/04/18 09:12 06/04/18 09:12 06/04/18 09:12 06/04/18 09:12 General appearance: Present: no acute distress - EENT Eyes: Present: PERRL, EOM intact ENT: hearing intact, clear oral mucosa, dentition normal - Neck Neck: Present: supple, normal ROM - Respiratory Respiratory effort: normal Respiratory: bilateral: CTA - Cardiovascular Rhythm: regular Heart Sounds: Present: S1 & S2. Absent: gallop, rub - Extremities Extremities: no ischemia, No edema, Full ROM - Abdominal General gastrointestinal: soft, non-tender, non-distended, normal bowel sounds - Integumentary Integumentary: Present: clear, warm, dry - Neurologic Neurologic: CNII-XII intact, moves all extremities Results - Labs CBC & Chem 7: 06/02/18 Unknown 06/04/18 04:31 Labs: Laboratory Last Values WBC 20.8 K/mm3 (4.5-11.0) H 06/02/18 Unknown RBC 2.67 M/mm3 (3.65-5.03) L 06/02/18 Unknown Hgb 7.7 gm/dl (11.8-15.2) L 06/02/18 Unknown Hct 23.0 % (35.5-45.6) L 06/02/18 Unknown MCV 86 fl (84-94) 06/02/18 Unknown MCH 29 pg (28-32) 06/02/18 Unknown MCHC 34 % (32-34) 06/02/18 Unknown RDW 14.7 % (13.2-15.2) 06/02/18 Unknown Plt Count 500 K/mm3 (140-440) H 06/02/18 Unknown Lymph % (Auto) Applications Developer 05/28/18 05:00 [place] % (Auto) Applications Developer 05/28/18 05:00 Eos % (Auto) Applications Developer 05/28/18 05:00 Baso % (Auto) Applications Developer 05/28/18 05:00 Lymph # Applications Developer 05/28/18 05:00 [place] # Applications Developer 05/28/18 05:00 Eos # Applications Developer 05/28/18 05:00 Baso # Applications Developer 05/28/18 05:00 Add Manual Diff Complete 05/31/18 04:50 Total Counted 100 05/31/18 04:50 Seg Neutrophils % Applications Developer 05/28/18 05:00 Seg Neuts % (Manual) 91.0 % (40.0-70.0) H 05/31/18 04:50 Band Neutrophils % 2.0 % 05/31/18 04:50 Lymphocytes % (Manual) 2.0 % (13.4-35.0) L 05/31/18 04:50 Reactive Lymphs % (Man) 0 % 05/31/18 04:50 Monocytes % (Manual) 2.0 % (0.0-7.3) 05/31/18 04:50 Eosinophils % (Manual) 1.0 % (0.0-4.3) 05/31/18 04:50 Basophils % (Manual) 0 % (0.0-1.8) 05/31/18 04:50 Metamyelocytes % 1.0 % 05/31/18 04:50 Myelocytes % 1.0 % 05/31/18 04:50 Promyelocytes % 0 % 05/31/18 04:50 Blast Cells % 0 % 05/31/18 04:50 Nucleated RBC % Not Reportable 05/31/18 04:50 Seg Neutrophils # Applications Developer 05/28/18 05:00 Seg Neutrophils # Man 17.0 K/mm3 (1.8-7.7) H 05/31/18 04:50 Band Neutrophils # 0.4 K/mm3 05/31/18 04:50 Lymphocytes # (Manual) 0.4 K/mm3 (1.2-5.4) L 05/31/18 04:50 Abs React Lymphs (Man) 0.0 K/mm3 05/31/18 04:50 Monocytes # (Manual) 0.4 K/mm3 (0.0-0.8) 05/31/18 04:50 Eosinophils # (Manual) 0.2 K/mm3 (0.0-0.4) 05/31/18 04:50 Basophils # (Manual) 0.0 K/mm3 (0.0-0.1) 05/31/18 04:50 Metamyelocytes # 0.2 K/mm3 05/31/18 04:50 Myelocytes # 0.2 K/mm3 05/31/18 04:50 Promyelocytes # 0.0 K/mm3 05/31/18 04:50 Blast Cells # 0.0 K/mm3 05/31/18 04:50 WBC Morphology Not Reportable 05/31/18 04:50 Hypersegmented Neuts Not Reportable 05/31/18 04:50 Hyposegmented Neuts Not Reportable 05/31/18 04:50 Hypogranular Neuts Not Reportable 05/31/18 04:50 Smudge Cells Not Reportable 05/31/18 04:50 Toxic Granulation Not Reportable 05/31/18 04:50 Toxic Vacuolation Not Reportable 05/31/18 04:50 Dohle Bodies Not Reportable 05/31/18 04:50 Pelger-Huet Anomaly Not Reportable 05/31/18 04:50 Mahesh Rods Not Reportable 05/31/18 04:50 Platelet Estimate Appears normal 05/31/18 04:50 Clumped Platelets Not Reportable 05/31/18 04:50 Plt Clumps, EDTA Not Reportable 05/31/18 04:50 Large Platelets Not Reportable 05/31/18 04:50 Giant Platelets Not Reportable 05/31/18 04:50 Platelet Satelliting Not Reportable 05/31/18 04:50 Plt Morphology Comment Not Reportable 05/31/18 04:50 RBC Morphology Not Reportable 05/31/18 04:50 Dimorphic RBCs Not Reportable 05/31/18 04:50 Polychromasia Not Reportable 05/31/18 04:50 Hypochromasia Few 05/31/18 04:50 Poikilocytosis Not Reportable 05/31/18 04:50 Anisocytosis 1+ 05/31/18 04:50 Microcytosis Few 05/31/18 04:50 Macrocytosis Not Reportable 05/31/18 04:50 Spherocytes Not Reportable 05/31/18 04:50 Pappenheimer Bodies Not Reportable 05/31/18 04:50 Sickle Cells Not Reportable 05/31/18 04:50 Target Cells Rare 05/31/18 04:50 Tear Drop Cells Not Reportable 05/31/18 04:50 Ovalocytes 1+ 05/31/18 04:50 Helmet Cells Not Reportable 05/31/18 04:50 [place] Bodies Not Reportable 05/31/18 04:50 [place] Rings Not Reportable 05/31/18 04:50 Nory Cells Not Reportable 05/31/18 04:50 Bite Cells Not Reportable 05/31/18 04:50 Crenated Cell Not Reportable 05/31/18 04:50 Elliptocytes Not Reportable 05/31/18 04:50 Acanthocytes (Spur) Not Reportable 05/31/18 04:50 Rouleaux Not Reportable 05/31/18 04:50 Hemoglobin C Crystals Not Reportable 05/31/18 04:50 Schistocytes Not Reportable 05/31/18 04:50 Malaria parasites Not Reportable 05/31/18 04:50 Mk Bodies Not Reportable 05/31/18 04:50 Hem Pathologist Commnt No 05/31/18 04:50 PT 17.1 Sec. (12.2-14.9) H 06/03/18 09:18 INR 1.34 (0.87-1.13) H 06/03/18 09:18 APTT 40.0 Sec. (24.2-36.6) H 05/23/18 09:03 POC ABG pH 7.362 (7.35-7.45) 05/31/18 09:58 POC ABG pCO2 36.4 (35-45) 05/31/18 09:58 POC ABG pO2 101 (80-105) 05/31/18 09:58 POC ABG HCO3 20.7 05/31/18 09:58 POC ABG Total CO2 22 05/31/18 09:58 POC ABG O2 Sat 98 05/31/18 09:58 POC ABG Base Excess -5 05/31/18 09:58 FiO2 40 % 05/31/18 09:58 Sodium 139 mmol/L (137-145) 06/04/18 04:31 Potassium 4.3 mmol/L (3.6-5.0) 06/04/18 04:31 Chloride 101.0 mmol/L (98-107) 06/04/18 04:31 Carbon Dioxide 23 mmol/L (22-30) 06/04/18 04:31 Anion Gap 19 mmol/L 06/04/18 04:31 BUN 55 mg/dL (9-20) H 06/04/18 04:31 Creatinine 3.7 mg/dL (0.8-1.5) H 06/04/18 04:31 Estimated GFR 21 ml/min 06/04/18 04:31 BUN/Creatinine Ratio 15 % 06/04/18 04:31 Glucose 151 mg/dL (75-100) H 06/04/18 04:31 POC Glucose 129 (70-105) H 06/04/18 11:38 Hemoglobin A1c 5.7 % (4-6) 05/14/18 05:05 Lactic Acid 3.80 mmol/L (0.7-2.0) H* 05/26/18 11:00 Calcium 7.8 mg/dL (8.4-10.2) L 06/04/18 04:31 Phosphorus 4.60 mg/dL (2.5-4.5) H 06/04/18 04:31 Magnesium 2.10 mg/dL (1.7-2.3) 06/04/18 04:31 Iron 24 ug/dL (49-181) L 05/16/18 07:02 TIBC 160 mcg/dL (250-450) L 05/16/18 07:02 Ferritin 325.8 ng/mL (13.0-400.0) 05/16/18 07:02 Total Bilirubin 0.50 mg/dL (0.1-1.2) 06/02/18 Unknown AST 46 units/L (5-40) H 06/02/18 Unknown ALT 66 units/L (7-56) H 06/02/18 Unknown Alkaline Phosphatase 119 units/L (35-129) 06/02/18 Unknown Total Creatine Kinase 156 units/L (55-170) 05/25/18 22:46 CK-MB (CK-2) 2.3 ng/mL (0.0-4.0) 05/25/18 22:46 CK-MB (CK-2) Rel Index 1.4 (0-4) 05/25/18 22:46 C-Reactive Protein 11.10 mg/dL (0.00-1.30) H 06/03/18 09:18 Total Protein 5.7 g/dL (6.3-8.2) L 06/02/18 Unknown Albumin 1.5 g/dL (3.9-5) L 06/02/18 Unknown Albumin/Globulin Ratio 0.4 % 06/02/18 Unknown Triglycerides 112 mg/dL (2-149) 06/03/18 03:31 Prostate Specific Ag 0.96 ng/mL (0.00-4.00) 05/14/18 13:29 Vitamin B12 359.2 pg/mL (211-911) 05/16/18 07:02 Folate 5.39 ng/mL (7.3-26.0) L 05/16/18 07:02 TSH 3.180 mlU/mL (0.270-4.200) 05/14/18 05:05 PTH Intact 65.37 pg/mL (15-65) H 05/14/18 05:05 Urine Color [place] (Yellow) 05/27/18 Unknown Urine Turbidity Cloudy (Clear) 05/27/18 Unknown Urine pH 5.0 (5.0-7.0) 05/27/18 Unknown Ur Specific [place] 1.026 (1.003-1.030) 05/27/18 Unknown Urine Protein 100 mg/dl mg/dL (Negative) 05/27/18 Unknown Urine Glucose (UA) 50 mg/dL (Negative) 05/27/18 Unknown Urine Ketones Neg mg/dL (Negative) 05/27/18 Unknown Urine Blood Lg (Negative) 05/27/18 Unknown Urine Nitrite Neg (Negative) 05/27/18 Unknown Urine Bilirubin Neg (Negative) 05/27/18 Unknown Urine Urobilinogen < 2.0 mg/dL (<2.0) 05/27/18 Unknown Ur Leukocyte Esterase Mod (Negative) 05/27/18 Unknown Urine WBC (Auto) 120.0 /HPF (0.0-6.0) H 05/27/18 Unknown Urine RBC (Auto) 35.0 /HPF (0.0-6.0) 05/27/18 Unknown U Epithel Cells (Auto) 3.0 /HPF (0-13.0) 05/27/18 Unknown Urine Bacteria (Auto) 1+ /HPF (Negative) 05/27/18 Unknown Urine WBC Clumps Few /HPF 05/13/18 19:39 Urine Mucus Few /HPF 05/27/18 Unknown Urine Yeast (Budding) 2+ /HPF 05/21/18 15:30 Urine Creatinine 66.0 mg/dL (0.1-20.0) H 05/13/18 19:39 Urine Sodium 60 mmol/L 05/13/18 19:39 Urine Potassium 8.69 mmol/L 05/13/18 19:39 Urine Chloride 27.8 mmolL (110-250) L 05/13/18 19:39 Urine Total Protein 24 mg/dL (5-11.8) H 05/13/18 19:39 Fluid Type Ascitic 06/03/18 Unknown Fluid Color Yellow 06/03/18 Unknown Fluid Appearance Cloudy 06/03/18 Unknown Fluid WBC 62320 /mm3 06/03/18 Unknown Fluid RBC 9 /mm3 06/03/18 Unknown Fluid Seg Neutrophils 98.0 % 06/03/18 Unknown Fluid Lymphocytes 2.0 % 06/03/18 Unknown Fluid Reactive Lymphs 0 % 06/03/18 Unknown Fluid Monocytes 0 % 06/03/18 Unknown Fluid Eosinophils 0 % 06/03/18 Unknown Fluid Basophils 0 % 06/03/18 Unknown Vancomycin Trough 25.1 ug/mL (5.0-20.0) H 05/25/18 22:46 Random Vancomycin 34.3 ug/mL (0-40.0) 05/26/18 11:01 Urine Opiates Screen Presumptive negative 05/13/18 19:39 Urine Methadone Screen Presumptive negative 05/13/18 19:39 Ur Barbiturates Screen Presumptive negative 05/13/18 19:39 Ur Phencyclidine Scrn Presumptive negative 05/13/18 19:39 Ur Amphetamines Screen Presumptive negative 05/13/18 19:39 U Benzodiazepines Scrn Presumptive negative 05/13/18 19:39 Urine Cocaine Screen Presumptive negative 05/13/18 19:39 U Marijuana (THC) Screen Presumptive negative 05/13/18 19:39 Drugs of Abuse Note Disclamer 05/13/18 19:39 ZEUS Screen Negative (Negative) 05/14/18 05:05 Proteinase 3 (PR3) Ab <1.0 AI (<1.0) 05/14/18 05:05 Myeloperoxidase Ab <1.0 AI (<1.0) 05/14/18 05:05 Complement C3 147 mg/dL (82-185) 05/14/18 05:05 Complement C4 45 mg/dL (15-53) 05/14/18 05:05 Hepatitis A IgM Ab Nonreactive (NonReactive) 05/27/18 13:41 Hep Bs Antigen Non-reactive (Negative) 05/27/18 13:41 Hep B Core IgM Ab Non-reactive (NonReactive) 05/27/18 13:41 Hepatitis C Antibody Non-reactive (NonReactive) 05/27/18 13:41 Miscellaneous Test Flexitest 1 H 05/27/18 13:02 Blood Type O POSITIVE 06/02/18 13:05 Antibody Screen Negative 06/02/18 13:05 Crossmatch See Detail 05/22/18 11:23
[2018-06-04] MEDS ORDERED: NACL 0.9% 1000 ML 1,000 ML IV SCH (12:00)
[2018-06-04] MEDS ORDERED: CATAPRES-TTS PATCH TD SCH (12:00)
--- NOTE | 2018-06-04 15:15 | Progress Note ---
Assessment and Plan Acute hypoxemic respiratory failure, possibly secondary to 2. Bilateral pneumonia, possibly aspiration. Sepsis syndrome. 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 Acute deep venous thrombosis. Hypertensive urgency. Hyperkalemia, now resolved. Moderate to severe protein calorie malnutrition Hypernatremia. Hypochloremia. Anemia, normocytic. (ABLA) - continue supplemental oxygen to keep sats > 90% - continue bronchodilators with pulmonary hygiene per RT - HD/UF for toxin and volume clearance - continue anti-infective's per ID recs - continue TPN for now (enteral nutrition once cleared by surgery) - Malignancy per heme-oncologist - continue mobility protocol for pressure ulcer prophylaxis - s/p surgery 05/26 (had ex-lap; matted abdominal organs, pus) - s/p bilateral nephrostomy tubes placed 05/14/[address] Freeman. - continue other care per attending / other consultants - consider paracentesis - continue other care per attending / other consultants ... re-evaluate in am & prn Subjective Date of service: 06/04/18 Principal diagnosis: Acute Hypoxemic Resp Failure; Sepsis Syndrome; Acute VTE; Prostate Cancer Interval history: Patient is seen today for: Acute Hypoxemic Resp Failure; Sepsis Syndrome; Acute VTE; Prostate Cancer Seen and examined at bedside; 24hour events reviewed; nursing and respiratory care staff consulted; no adverse overnight events reported to me; resting peacefully; denies acute chest pains or palpitation; no gross bleeding; no high grade fevers Objective Vital Signs - 12hr 06/04/18 06/04/18 06/04/18 04:29 05:19 08:00 Temperature 97.6 F Pulse Rate 88 108 H Respiratory 18 Rate Respiratory 22 Rate [Abdomen] Blood Pressure 165/98 Blood Pressure 165/68 [Right] O2 Sat by Pulse 95 Oximetry 06/04/18 06/04/18 06/04/18 08:22 09:00 09:12 Temperature 98.0 F Pulse Rate 90 100 H 100 H Respiratory 18 Rate Respiratory Rate [Abdomen] Blood Pressure 160/80 158/98 151/99 Blood Pressure [Right] O2 Sat by Pulse 97 Oximetry Constitutional: no acute distress, alert, other (chronically ill looking middle aged AAM, normocephalic and atraumatic, ) Eyes: non-icteric ENT: oropharynx moist, epistaxis, other (mallampati 2) Neck: supple, no lymphadenopathy, no JVD, other (no thyromegaly) Effort: mildly labored Ascultation: Bilateral: diminished breath sounds, rhonchi (scant in bases) Percussion: Bilateral: not dull Cardiovascular: regular rate and rhythm, other (No R/M) Gastrointestinal: hypoactive bowel sounds, soft, tender (mild), other (Distended ; No palpable HSM, bilateral nephrostomy tubes,) Integumentary: other (femoral vascath) Extremities: no cyanosis, no edema, pulses normal, no ischemia or petechiae Neurologic: normal mental status, non-focal exam, pupils equal and round, other (weak) Psychiatric: mood appropriate, affect normal CBC and BMP: 06/07/18 05:45 06/08/18 05:24 ABG, PT/INR, D-dimer: ABG POC ABG pH 7.362 (7.35-7.45) 05/31/18 09:58 POC ABG pCO2 36.4 (35-45) 05/31/18 09:58 POC ABG pO2 101 (80-105) 05/31/18 09:58 POC ABG HCO3 20.7 05/31/18 09:58 POC ABG Total CO2 22 05/31/18 09:58 POC ABG O2 Sat 98 05/31/18 09:58 PT/INR, D-dimer PT 17.1 Sec. (12.2-14.9) H 06/03/18 09:18 INR 1.34 (0.87-1.13) H 06/03/18 09:18 Abnormal lab findings: Abnormal Labs 05/13/18 05/13/18 05/13/18 04:27 04:27 19:39 WBC RBC 3.13 L Hgb 9.4 L Hct 26.8 L MCHC 35 H RDW Plt Count Lymph % (Auto) [place] % (Auto) 9.6 H Lymph # [place] # Seg Neutrophils % Seg Neuts % (Manual) Lymphocytes % (Manual) Seg Neutrophils # Seg Neutrophils # Man Lymphocytes # (Manual) PT INR APTT POC ABG pH POC ABG pCO2 POC ABG pO2 Sodium 132 L Potassium 5.5 H Chloride 94.1 L Carbon Dioxide 19 L BUN 72 H Creatinine 14.4 H Glucose POC Glucose Lactic Acid Calcium Phosphorus Magnesium Iron TIBC AST ALT Alkaline Phosphatase Total Creatine Kinase C-Reactive Protein Total Protein Albumin 2.8 L Folate PTH Intact Urine WBC (Auto) Urine Creatinine 66.0 H Urine Chloride 27.8 L Urine Total Protein 24 H Vancomycin Trough Miscellaneous Test Crossmatch 05/13/18 05/14/18 05/14/18 20:00 05:05 05:05 WBC RBC Hgb Hct MCHC RDW Plt Count Lymph % (Auto) [place] % (Auto) Lymph # [place] # Seg Neutrophils % Seg Neuts % (Manual) Lymphocytes % (Manual) Seg Neutrophils # Seg Neutrophils # Man Lymphocytes # (Manual) PT INR APTT POC ABG pH POC ABG pCO2 POC ABG pO2 Sodium 132 L 131 L Potassium 5.2 H 5.8 H Chloride 93.0 L 95.6 L Carbon Dioxide 19 L 20 L BUN 74 H 81 H Creatinine 15.0 H 16.6 H Glucose 134 H 127 H POC Glucose Lactic Acid Calcium 8.2 L 7.9 L Phosphorus 6.30 H Magnesium Iron TIBC AST ALT Alkaline Phosphatase Total Creatine Kinase 236 H C-Reactive Protein Total Protein Albumin Folate PTH Intact 65.37 H Urine WBC (Auto) Urine Creatinine Urine Chloride Urine Total Protein Vancomycin Trough Miscellaneous Test Crossmatch 05/14/18 05/14/18 05/14/18 09:28 10:56 13:29 WBC RBC Hgb Hct MCHC RDW Plt Count Lymph % (Auto) [place] % (Auto) Lymph # [place] # Seg Neutrophils % Seg Neuts % (Manual) Lymphocytes % (Manual) Seg Neutrophils # Seg Neutrophils # Man Lymphocytes # (Manual) PT INR APTT 38.2 H POC ABG pH POC ABG pCO2 POC ABG pO2 Sodium Potassium Chloride Carbon Dioxide BUN Creatinine Glucose POC Glucose 127 H 126 H Lactic Acid Calcium Phosphorus Magnesium Iron TIBC AST ALT Alkaline Phosphatase Total Creatine Kinase C-Reactive Protein Total Protein Albumin Folate PTH Intact Urine WBC (Auto) Urine Creatinine Urine Chloride Urine Total Protein Vancomycin Trough Miscellaneous Test Crossmatch 05/15/18 05/15/18 05/16/18 08:06 08:06 07:02 WBC RBC 2.84 L 2.74 L Hgb 8.5 L 8.5 L Hct 24.2 L 23.5 L MCHC 35 H 36 H RDW Plt Count Lymph % (Auto) [place] % (Auto) 10.4 H 11.0 H Lymph # 1.1 L [place] # 0.9 H Seg Neutrophils % 72.6 H Seg Neuts % (Manual) Lymphocytes % (Manual) Seg Neutrophils # Seg Neutrophils # Man Lymphocytes # (Manual) PT INR APTT POC ABG pH POC ABG pCO2 POC ABG pO2 Sodium Potassium Chloride Carbon Dioxide 19 L BUN 66 H Creatinine 12.0 H Glucose 115 H POC Glucose Lactic Acid Calcium 8.1 L Phosphorus Magnesium Iron TIBC AST ALT Alkaline Phosphatase Total Creatine Kinase C-Reactive Protein Total Protein Albumin Folate PTH Intact Urine WBC (Auto) Urine Creatinine Urine Chloride Urine Total Protein Vancomycin Trough Miscellaneous Test Crossmatch 05/16/18 05/16/18 05/17/18 07:02 07:02 05:08 WBC RBC 2.78 L Hgb 8.2 L Hct 23.9 L MCHC RDW Plt Count Lymph % (Auto) [place] % (Auto) 13.9 H Lymph # [place] # 0.9 H Seg Neutrophils % Seg Neuts % (Manual) Lymphocytes % (Manual) Seg Neutrophils # Seg Neutrophils # Man Lymphocytes # (Manual) PT INR APTT POC ABG pH POC ABG pCO2 POC ABG pO2 Sodium Potassium Chloride Carbon Dioxide BUN 28 H Creatinine 2.4 H D Glucose POC Glucose Lactic Acid Calcium 8.3 L Phosphorus Magnesium 1.50 L Iron 24 L TIBC 160 L AST ALT Alkaline Phosphatase Total Creatine Kinase C-Reactive Protein Total Protein Albumin Folate 5.39 L PTH Intact Urine WBC (Auto) Urine Creatinine Urine Chloride Urine Total Protein Vancomycin Trough Miscellaneous Test Crossmatch 05/17/18 05/18/18 05/18/18 05:08 05:57 05:57 WBC RBC 2.79 L Hgb 8.3 L Hct 24.0 L MCHC 35 H RDW Plt Count Lymph % (Auto) [place] % (Auto) 11.8 H Lymph # [place] # 0.9 H Seg Neutrophils % Seg Neuts % (Manual) Lymphocytes % (Manual) Seg Neutrophils # Seg Neutrophils # Man Lymphocytes # (Manual) PT INR APTT POC ABG pH POC ABG pCO2 POC ABG pO2 Sodium Potassium Chloride Carbon Dioxide BUN Creatinine Glucose POC Glucose Lactic Acid Calcium 7.7 L 8.0 L Phosphorus Magnesium 1.60 L Iron TIBC AST ALT Alkaline Phosphatase Total Creatine Kinase C-Reactive Protein Total Protein Albumin Folate PTH Intact Urine WBC (Auto) Urine Creatinine Urine Chloride Urine Total Protein Vancomycin Trough Miscellaneous Test Crossmatch 05/19/18 05/19/18 05/20/18 05:33 05:33 05:38 WBC RBC 2.95 L Hgb 8.8 L Hct 25.8 L MCHC RDW Plt Count Lymph % (Auto) 10.1 L [place] % (Auto) Lymph # 1.1 L [place] # Seg Neutrophils % 85.2 H Seg Neuts % (Manual) Lymphocytes % (Manual) Seg Neutrophils # 9.0 H Seg Neutrophils # Man Lymphocytes # (Manual) PT INR APTT POC ABG pH POC ABG pCO2 POC ABG pO2 Sodium 135 L Potassium Chloride Carbon Dioxide BUN Creatinine Glucose 132 H POC Glucose Lactic Acid Calcium 7.8 L 8.3 L Phosphorus Magnesium 1.40 L Iron TIBC AST ALT Alkaline Phosphatase Total Creatine Kinase C-Reactive Protein Total Protein Albumin Folate PTH Intact Urine WBC (Auto) Urine Creatinine Urine Chloride Urine Total Protein Vancomycin Trough Miscellaneous Test Crossmatch 05/21/18 05/21/18 05/22/18 04:46 15:30 06:49 WBC 20.0 H RBC 2.70 L Hgb 7.8 L Hct 23.3 L MCHC RDW Plt Count Lymph % (Auto) [place] % (Auto) Lymph # [place] # Seg Neutrophils % Seg Neuts % (Manual) 85.0 H Lymphocytes % (Manual) 4.0 L Seg Neutrophils # Seg Neutrophils # Man 17.0 H Lymphocytes # (Manual) 0.8 L PT INR APTT POC ABG pH POC ABG pCO2 POC ABG pO2 Sodium 135 L Potassium 3.5 L Chloride Carbon Dioxide 21 L BUN 22 H Creatinine Glucose POC Glucose Lactic Acid Calcium 8.1 L Phosphorus Magnesium Iron TIBC AST ALT Alkaline Phosphatase Total Creatine Kinase C-Reactive Protein Total Protein Albumin Folate PTH Intact Urine WBC (Auto) 28.0 H Urine Creatinine Urine Chloride Urine Total Protein Vancomycin Trough Miscellaneous Test Crossmatch 05/22/18 05/22/18 05/23/18 06:49 11:23 09:03 WBC RBC Hgb Hct MCHC RDW Plt Count Lymph % (Auto) [place] % (Auto) Lymph # [place] # Seg Neutrophils % Seg Neuts % (Manual) Lymphocytes % (Manual) Seg Neutrophils # Seg Neutrophils # Man Lymphocytes # (Manual) PT INR APTT POC ABG pH POC ABG pCO2 POC ABG pO2 Sodium 134 L Potassium 3.5 L Chloride Carbon Dioxide 21 L BUN 35 H 36 H Creatinine 1.7 H Glucose 107 H POC Glucose Lactic Acid Calcium 7.9 L Phosphorus Magnesium 2.50 H Iron TIBC AST ALT Alkaline Phosphatase Total Creatine Kinase C-Reactive Protein Total Protein Albumin Folate PTH Intact Urine WBC (Auto) Urine Creatinine Urine Chloride Urine Total Protein Vancomycin Trough Miscellaneous Test Crossmatch See Detail 05/23/18 05/23/18 05/23/18 09:03 09:03 17:34 WBC 26.3 H RBC 3.57 L Hgb 10.4 L Hct 31.1 L D MCHC RDW Plt Count Lymph % (Auto) [place] % (Auto) Lymph # [place] # Seg Neutrophils % Seg Neuts % (Manual) Lymphocytes % (Manual) Seg Neutrophils # Seg Neutrophils # Man Lymphocytes # (Manual) PT 18.3 H INR 1.43 H APTT 40.0 H POC ABG pH POC ABG pCO2 POC ABG pO2 Sodium Potassium Chloride Carbon Dioxide BUN Creatinine Glucose POC Glucose 108 H Lactic Acid Calcium Phosphorus Magnesium Iron TIBC AST ALT Alkaline Phosphatase Total Creatine Kinase C-Reactive Protein Total Protein Albumin Folate PTH Intact Urine WBC (Auto) Urine Creatinine Urine Chloride Urine Total Protein Vancomycin Trough Miscellaneous Test Crossmatch 05/23/18 05/24/18 05/24/18 21:14 04:43 08:04 WBC RBC Hgb Hct MCHC RDW Plt Count Lymph % (Auto) [place] % (Auto) Lymph # [place] # Seg Neutrophils % Seg Neuts % (Manual) Lymphocytes % (Manual) Seg Neutrophils # Seg Neutrophils # Man Lymphocytes # (Manual) PT INR APTT POC ABG pH POC ABG pCO2 POC ABG pO2 Sodium 146 H Potassium Chloride 108.6 H Carbon Dioxide BUN 33 H Creatinine Glucose 109 H POC Glucose 110 H 106 H Lactic Acid Calcium 8.3 L Phosphorus Magnesium 2.50 H Iron TIBC AST ALT Alkaline Phosphatase Total Creatine Kinase C-Reactive Protein Total Protein Albumin Folate PTH Intact Urine WBC (Auto) Urine Creatinine Urine Chloride Urine Total Protein Vancomycin Trough Miscellaneous Test Crossmatch 05/25/18 05/25/18 05/25/18 05:42 05:49 19:50 WBC RBC Hgb Hct MCHC RDW Plt Count Lymph % (Auto) [place] % (Auto) Lymph # [place] # Seg Neutrophils % Seg Neuts % (Manual) Lymphocytes % (Manual) Seg Neutrophils # Seg Neutrophils # Man Lymphocytes # (Manual) PT INR APTT POC ABG pH POC ABG pCO2 POC ABG pO2 Sodium 150 H Potassium Chloride 112.5 H Carbon Dioxide BUN 34 H Creatinine Glucose 102 H POC Glucose 107 H Lactic Acid Calcium Phosphorus Magnesium Iron TIBC AST ALT Alkaline Phosphatase Total Creatine Kinase C-Reactive Protein 34.50 H Total Protein Albumin Folate PTH Intact Urine WBC (Auto) Urine Creatinine Urine Chloride Urine Total Protein Vancomycin Trough Miscellaneous Test Crossmatch 05/25/18 05/25/18 05/25/18 19:50 21:05 22:46 WBC RBC Hgb Hct MCHC RDW Plt Count Lymph % (Auto) [place] % (Auto) Lymph # [place] # Seg Neutrophils % Seg Neuts % (Manual) Lymphocytes % (Manual) Seg Neutrophils # Seg Neutrophils # Man Lymphocytes # (Manual) PT INR APTT POC ABG pH 7.483 H POC ABG pCO2 24.0 L POC ABG pO2 72 L Sodium Potassium Chloride Carbon Dioxide BUN Creatinine Glucose POC Glucose Lactic Acid 5.90 H* Calcium Phosphorus Magnesium Iron TIBC AST ALT Alkaline Phosphatase Total Creatine Kinase C-Reactive Protein Total Protein Albumin Folate PTH Intact Urine WBC (Auto) Urine Creatinine Urine Chloride Urine Total Protein Vancomycin Trough 25.1 H Miscellaneous Test Crossmatch 05/25/18 05/26/18 05/26/18 22:46 00:21 00:51 WBC RBC Hgb Hct MCHC RDW Plt Count Lymph % (Auto) [place] % (Auto) Lymph # [place] # Seg Neutrophils % Seg Neuts % (Manual) Lymphocytes % (Manual) Seg Neutrophils # Seg Neutrophils # Man Lymphocytes # (Manual) PT INR APTT POC ABG pH POC ABG pCO2 POC ABG pO2 Sodium Potassium Chloride Carbon Dioxide BUN Creatinine Glucose POC Glucose 133 H Lactic Acid 8.10 H* 6.20 H* Calcium Phosphorus Magnesium Iron TIBC AST ALT Alkaline Phosphatase Total Creatine Kinase C-Reactive Protein Total Protein Albumin Folate PTH Intact Urine WBC (Auto) Urine Creatinine Urine Chloride Urine Total Protein Vancomycin Trough Miscellaneous Test Crossmatch 05/26/18 05/26/18 05/26/18 01:13 02:24 02:24 WBC 18.7 H RBC Hgb 11.6 L Hct MCHC RDW Plt Count Lymph % (Auto) [place] % (Auto) Lymph # [place] # Seg Neutrophils % Seg Neuts % (Manual) Lymphocytes % (Manual) Seg Neutrophils # Seg Neutrophils # Man Lymphocytes # (Manual) PT INR APTT POC ABG pH POC ABG pCO2 POC ABG pO2 Sodium 147 H Potassium 6.2 H* D Chloride 111.9 H Carbon Dioxide 19 L BUN 80 H Creatinine 5.1 H D Glucose 112 H POC Glucose Lactic Acid 5.20 H* Calcium 6.7 L D Phosphorus Magnesium Iron TIBC AST ALT Alkaline Phosphatase Total Creatine Kinase C-Reactive Protein Total Protein Albumin Folate PTH Intact Urine WBC (Auto) Urine Creatinine Urine Chloride Urine Total Protein Vancomycin Trough Miscellaneous Test Crossmatch 05/26/18 05/26/18 05/26/18 04:20 04:20 05:39 WBC RBC Hgb Hct MCHC RDW Plt Count Lymph % (Auto) [place] % (Auto) Lymph # [place] # Seg Neutrophils % Seg Neuts % (Manual) Lymphocytes % (Manual) Seg Neutrophils # Seg Neutrophils # Man Lymphocytes # (Manual) PT INR APTT POC ABG pH POC ABG pCO2 POC ABG pO2 Sodium 150 H Potassium Chloride 110.0 H Carbon Dioxide 19 L BUN 66 H Creatinine Glucose 166 H POC Glucose 187 H Lactic Acid 5.10 H* Calcium 6.9 L Phosphorus 6.70 H D Magnesium Iron TIBC AST ALT Alkaline Phosphatase Total Creatine Kinase C-Reactive Protein Total Protein Albumin Folate PTH Intact Urine WBC (Auto) Urine Creatinine Urine Chloride Urine Total Protein Vancomycin Trough Miscellaneous Test Crossmatch 05/26/18 05/26/18 05/26/18 06:02 07:29 11:00 WBC RBC Hgb Hct MCHC RDW Plt Count Lymph % (Auto) [place] % (Auto) Lymph # [place] # Seg Neutrophils % Seg Neuts % (Manual) Lymphocytes % (Manual) Seg Neutrophils # Seg Neutrophils # Man Lymphocytes # (Manual) PT INR APTT POC ABG pH POC ABG pCO2 28.8 L POC ABG pO2 Sodium Potassium Chloride Carbon Dioxide BUN Creatinine Glucose POC Glucose Lactic Acid 4.80 H* 3.80 H* Calcium Phosphorus Magnesium Iron TIBC AST ALT Alkaline Phosphatase Total Creatine Kinase C-Reactive Protein Total Protein Albumin Folate PTH Intact Urine WBC (Auto) Urine Creatinine Urine Chloride Urine Total Protein Vancomycin Trough Miscellaneous Test Crossmatch 05/26/18 05/26/18 05/26/18 11:01 12:28 18:00 WBC RBC Hgb Hct MCHC RDW Plt Count Lymph % (Auto) [place] % (Auto) Lymph # [place] # Seg Neutrophils % Seg Neuts % (Manual) Lymphocytes % (Manual) Seg Neutrophils # Seg Neutrophils # Man Lymphocytes # (Manual) PT INR APTT POC ABG pH POC ABG pCO2 POC ABG pO2 Sodium 150 H 151 H Potassium 5.3 H D 6.1 H* Chloride 110.3 H 117.0 H Carbon Dioxide 21 L 20 L BUN 75 H 77 H Creatinine 4.3 H D 4.6 H Glucose 161 H POC Glucose 114 H Lactic Acid Calcium 7.5 L 6.7 L Phosphorus Magnesium Iron TIBC AST 1041 H ALT 406 H Alkaline Phosphatase 281 H Total Creatine Kinase C-Reactive Protein Total Protein 4.4 L Albumin 1.3 L Folate PTH Intact Urine WBC (Auto) Urine Creatinine Urine Chloride Urine Total Protein Vancomycin Trough Miscellaneous Test Crossmatch 05/26/18 05/26/18 05/27/18 18:02 19:17 01:01 WBC 21.7 H RBC 2.70 L Hgb 7.8 L D Hct 24.6 L D MCHC RDW 15.3 H Plt Count Lymph % (Auto) [place] % (Auto) Lymph # [place] # Seg Neutrophils % Seg Neuts % (Manual) 94.0 H Lymphocytes % (Manual) 3.0 L Seg Neutrophils # Seg Neutrophils # Man 20.4 H Lymphocytes # (Manual) 0.7 L PT INR APTT POC ABG pH 7.159 L 7.205 L POC ABG pCO2 54.5 H 53.0 H POC ABG pO2 252 H Sodium Potassium Chloride Carbon Dioxide BUN Creatinine Glucose POC Glucose Lactic Acid Calcium Phosphorus Magnesium Iron TIBC AST ALT Alkaline Phosphatase Total Creatine Kinase C-Reactive Protein Total Protein Albumin Folate PTH Intact Urine WBC (Auto) Urine Creatinine Urine Chloride Urine Total Protein Vancomycin Trough Miscellaneous Test Crossmatch 05/27/18 05/27/18 05/27/18 05:15 05:15 06:11 WBC 24.9 H RBC 2.86 L Hgb 8.1 L Hct 25.9 L MCHC RDW 15.5 H Plt Count Lymph % (Auto) [place] % (Auto) Lymph # [place] # Seg Neutrophils % Seg Neuts % (Manual) Lymphocytes % (Manual) Seg Neutrophils # Seg Neutrophils # Man Lymphocytes # (Manual) PT INR APTT POC ABG pH 7.265 L POC ABG pCO2 46.2 H POC ABG pO2 111 H Sodium 149 H Potassium 6.9 H* Chloride 113.5 H Carbon Dioxide BUN 89 H Creatinine 5.2 H Glucose 118 H POC Glucose Lactic Acid Calcium 7.0 L Phosphorus 9.70 H D Magnesium Iron TIBC AST 876 H ALT 408 H Alkaline Phosphatase Total Creatine Kinase C-Reactive Protein Total Protein 5.2 L Albumin 1.5 L Folate PTH Intact Urine WBC (Auto) Urine Creatinine Urine Chloride Urine Total Protein Vancomycin Trough Miscellaneous Test Crossmatch 05/27/18 05/27/18 05/27/18 08:48 10:22 10:22 WBC RBC Hgb Hct MCHC RDW Plt Count Lymph % (Auto) [place] % (Auto) Lymph # [place] # Seg Neutrophils % Seg Neuts % (Manual) Lymphocytes % (Manual) Seg Neutrophils # Seg Neutrophils # Man Lymphocytes # (Manual) PT INR APTT POC ABG pH POC ABG pCO2 POC ABG pO2 Sodium 146 H Potassium 6.1 H* Chloride 108.2 H Carbon Dioxide 21 L BUN 88 H Creatinine 5.6 H Glucose 163 H POC Glucose 164 H Lactic Acid Calcium 6.7 L Phosphorus Magnesium Iron TIBC AST ALT Alkaline Phosphatase Total Creatine Kinase C-Reactive Protein 40.70 H Total Protein Albumin Folate PTH Intact Urine WBC (Auto) Urine Creatinine Urine Chloride Urine Total Protein Vancomycin Trough Miscellaneous Test Crossmatch 05/27/18 05/27/18 05/27/18 13:02 17:39 23:27 WBC RBC Hgb Hct MCHC RDW Plt Count Lymph % (Auto) [place] % (Auto) Lymph # [place] # Seg Neutrophils % Seg Neuts % (Manual) Lymphocytes % (Manual) Seg Neutrophils # Seg Neutrophils # Man Lymphocytes # (Manual) PT INR APTT POC ABG pH POC ABG pCO2 POC ABG pO2 Sodium Potassium Chloride Carbon Dioxide BUN Creatinine Glucose POC Glucose 59 L 132 H Lactic Acid Calcium Phosphorus Magnesium Iron TIBC AST ALT Alkaline Phosphatase Total Creatine Kinase C-Reactive Protein Total Protein Albumin Folate PTH Intact Urine WBC (Auto) Urine Creatinine Urine Chloride Urine Total Protein Vancomycin Trough Miscellaneous Test Flexitest 1 H Crossmatch 05/27/18 05/28/18 05/28/18 Unknown 04:32 05:00 WBC RBC Hgb Hct MCHC RDW Plt Count Lymph % (Auto) [place] % (Auto) Lymph # [place] # Seg Neutrophils % Seg Neuts % (Manual) Lymphocytes % (Manual) Seg Neutrophils # Seg Neutrophils # Man Lymphocytes # (Manual) PT INR APTT POC ABG pH POC ABG pCO2 POC ABG pO2 134 H Sodium Potassium Chloride Carbon Dioxide BUN 69 H Creatinine 4.4 H Glucose 118 H POC Glucose Lactic Acid Calcium 8.0 L D Phosphorus 6.80 H D Magnesium Iron TIBC AST ALT Alkaline Phosphatase Total Creatine Kinase C-Reactive Protein Total Protein Albumin Folate PTH Intact Urine WBC (Auto) 120.0 H Urine Creatinine Urine Chloride Urine Total Protein Vancomycin Trough Miscellaneous Test Crossmatch 05/28/18 05/28/18 05/28/18 05:00 05:27 13:04 WBC 26.5 H RBC 2.69 L Hgb 7.7 L Hct 23.6 L MCHC RDW Plt Count Lymph % (Auto) [place] % (Auto) Lymph # [place] # Seg Neutrophils % Seg Neuts % (Manual) 96.0 H Lymphocytes % (Manual) 0 L Seg Neutrophils # Seg Neutrophils # Man 25.4 H Lymphocytes # (Manual) 0.0 L PT INR APTT POC ABG pH POC ABG pCO2 POC ABG pO2 Sodium Potassium Chloride Carbon Dioxide BUN Creatinine Glucose POC Glucose 128 H 155 H Lactic Acid Calcium Phosphorus Magnesium Iron TIBC AST ALT Alkaline Phosphatase Total Creatine Kinase C-Reactive Protein Total Protein Albumin Folate PTH Intact Urine WBC (Auto) Urine Creatinine Urine Chloride Urine Total Protein Vancomycin Trough Miscellaneous Test Crossmatch 05/28/18 05/29/18 05/29/18 17:56 03:35 04:00 WBC RBC Hgb Hct MCHC RDW Plt Count Lymph % (Auto) [place] % (Auto) Lymph # [place] # Seg Neutrophils % Seg Neuts % (Manual) Lymphocytes % (Manual) Seg Neutrophils # Seg Neutrophils # Man Lymphocytes # (Manual) PT INR APTT POC ABG pH 7.471 H POC ABG pCO2 POC ABG pO2 78 L Sodium Potassium Chloride Carbon Dioxide BUN 50 H Creatinine 3.9 H Glucose POC Glucose 110 H Lactic Acid Calcium 7.7 L Phosphorus Magnesium 1.50 L Iron TIBC AST 218 H ALT 204 H Alkaline Phosphatase Total Creatine Kinase C-Reactive Protein Total Protein 5.4 L Albumin 1.6 L Folate PTH Intact Urine WBC (Auto) Urine Creatinine Urine Chloride Urine Total Protein Vancomycin Trough Miscellaneous Test Crossmatch 05/29/18 05/29/18 05/30/18 11:51 23:56 04:54 WBC RBC Hgb Hct MCHC RDW Plt Count Lymph % (Auto) [place] % (Auto) Lymph # [place] # Seg Neutrophils % Seg Neuts % (Manual) Lymphocytes % (Manual) Seg Neutrophils # Seg Neutrophils # Man Lymphocytes # (Manual) PT INR APTT POC ABG pH POC ABG pCO2 POC ABG pO2 Sodium Potassium Chloride Carbon Dioxide BUN Creatinine Glucose POC Glucose 131 H 119 H 115 H Lactic Acid Calcium Phosphorus Magnesium Iron TIBC AST ALT Alkaline Phosphatase Total Creatine Kinase C-Reactive Protein Total Protein Albumin Folate PTH Intact Urine WBC (Auto) Urine Creatinine Urine Chloride Urine Total Protein Vancomycin Trough Miscellaneous Test Crossmatch 05/30/18 05/30/18 05/30/18 05:07 05:15 05:15 WBC 16.2 H RBC 2.53 L Hgb 7.4 L Hct 21.9 L MCHC RDW Plt Count Lymph % (Auto) [place] % (Auto) Lymph # [place] # Seg Neutrophils % Seg Neuts % (Manual) Lymphocytes % (Manual) Seg Neutrophils # Seg Neutrophils # Man Lymphocytes # (Manual) PT INR APTT POC ABG pH POC ABG pCO2 34.5 L POC ABG pO2 133 H Sodium 135 L Potassium Chloride 97.5 L Carbon Dioxide BUN 69 H Creatinine 5.4 H Glucose 105 H POC Glucose Lactic Acid Calcium 7.5 L Phosphorus 5.30 H D Magnesium Iron TIBC AST ALT Alkaline Phosphatase Total Creatine Kinase C-Reactive Protein Total Protein Albumin Folate PTH Intact Urine WBC (Auto) Urine Creatinine Urine Chloride Urine Total Protein Vancomycin Trough Miscellaneous Test Crossmatch 05/30/18 05/30/18 05/31/18 12:13 17:10 04:50 WBC 18.7 H RBC 2.86 L Hgb 8.2 L Hct 24.8 L MCHC RDW Plt Count Lymph % (Auto) [place] % (Auto) Lymph # [place] # Seg Neutrophils % Seg Neuts % (Manual) 91.0 H Lymphocytes % (Manual) 2.0 L Seg Neutrophils # Seg Neutrophils # Man 17.0 H Lymphocytes # (Manual) 0.4 L PT INR APTT POC ABG pH POC ABG pCO2 POC ABG pO2 Sodium Potassium Chloride Carbon Dioxide BUN Creatinine Glucose POC Glucose 132 H 122 H Lactic Acid Calcium Phosphorus Magnesium Iron TIBC AST ALT Alkaline Phosphatase Total Creatine Kinase C-Reactive Protein Total Protein Albumin Folate PTH Intact Urine WBC (Auto) Urine Creatinine Urine Chloride Urine Total Protein Vancomycin Trough Miscellaneous Test Crossmatch 05/31/18 05/31/18 05/31/18 04:50 05:45 11:37 WBC RBC Hgb Hct MCHC RDW Plt Count Lymph % (Auto) [place] % (Auto) Lymph # [place] # Seg Neutrophils % Seg Neuts % (Manual) Lymphocytes % (Manual) Seg Neutrophils # Seg Neutrophils # Man Lymphocytes # (Manual) PT INR APTT POC ABG pH POC ABG pCO2 POC ABG pO2 Sodium 132 L Potassium Chloride 92.4 L Carbon Dioxide BUN 77 H Creatinine 5.9 H Glucose POC Glucose 111 H 136 H Lactic Acid Calcium 7.3 L Phosphorus 6.40 H D Magnesium Iron TIBC AST ALT Alkaline Phosphatase Total Creatine Kinase C-Reactive Protein Total Protein Albumin Folate PTH Intact Urine WBC (Auto) Urine Creatinine Urine Chloride Urine Total Protein Vancomycin Trough Miscellaneous Test Crossmatch 05/31/18 06/01/18 06/01/18 17:52 00:09 04:00 WBC RBC Hgb Hct MCHC RDW Plt Count Lymph % (Auto) [place] % (Auto) Lymph # [place] # Seg Neutrophils % Seg Neuts % (Manual) Lymphocytes % (Manual) Seg Neutrophils # Seg Neutrophils # Man Lymphocytes # (Manual) PT INR APTT POC ABG pH POC ABG pCO2 POC ABG pO2 Sodium Potassium Chloride 97.5 L Carbon Dioxide BUN 49 H Creatinine 4.2 H Glucose 104 H POC Glucose 115 H 114 H Lactic Acid Calcium 7.3 L Phosphorus 4.70 H D Magnesium Iron TIBC AST ALT Alkaline Phosphatase Total Creatine Kinase C-Reactive Protein Total Protein Albumin Folate PTH Intact Urine WBC (Auto) Urine Creatinine Urine Chloride Urine Total Protein Vancomycin Trough Miscellaneous Test Crossmatch 06/01/18 06/01/18 06/02/18 11:10 17:56 00:15 WBC RBC Hgb Hct MCHC RDW Plt Count Lymph % (Auto) [place] % (Auto) Lymph # [place] # Seg Neutrophils % Seg Neuts % (Manual) Lymphocytes % (Manual) Seg Neutrophils # Seg Neutrophils # Man Lymphocytes # (Manual) PT INR APTT POC ABG pH POC ABG pCO2 POC ABG pO2 Sodium Potassium Chloride Carbon Dioxide BUN Creatinine Glucose POC Glucose 123 H 126 H 135 H Lactic Acid Calcium Phosphorus Magnesium Iron TIBC AST ALT Alkaline Phosphatase Total Creatine Kinase C-Reactive Protein Total Protein Albumin Folate PTH Intact Urine WBC (Auto) Urine Creatinine Urine Chloride Urine Total Protein Vancomycin Trough Miscellaneous Test Crossmatch 06/02/18 06/02/18 06/02/18 05:23 12:42 13:05 WBC RBC Hgb Hct MCHC RDW Plt Count Lymph % (Auto) [place] % (Auto) Lymph # [place] # Seg Neutrophils % Seg Neuts % (Manual) Lymphocytes % (Manual) Seg Neutrophils # Seg Neutrophils # Man Lymphocytes # (Manual) PT 17.1 H INR 1.34 H APTT POC ABG pH POC ABG pCO2 POC ABG pO2 Sodium Potassium Chloride Carbon Dioxide BUN Creatinine Glucose POC Glucose 135 H 142 H Lactic Acid Calcium Phosphorus Magnesium Iron TIBC AST ALT Alkaline Phosphatase Total Creatine Kinase C-Reactive Protein Total Protein Albumin Folate PTH Intact Urine WBC (Auto) Urine Creatinine Urine Chloride Urine Total Protein Vancomycin Trough Miscellaneous Test Crossmatch 06/02/18 06/02/18 06/03/18 Unknown Unknown 00:54 WBC 20.8 H RBC 2.67 L Hgb 7.7 L Hct 23.0 L MCHC RDW Plt Count 500 H Lymph % (Auto) [place] % (Auto) Lymph # [place] # Seg Neutrophils % Seg Neuts % (Manual) Lymphocytes % (Manual) Seg Neutrophils # Seg Neutrophils # Man Lymphocytes # (Manual) PT INR APTT POC ABG pH POC ABG pCO2 POC ABG pO2 Sodium 136 L Potassium 3.5 L Chloride 96.9 L Carbon Dioxide BUN 62 H Creatinine 4.9 H Glucose 133 H POC Glucose 125 H Lactic Acid Calcium 7.2 L Phosphorus 5.00 H Magnesium Iron TIBC AST 46 H ALT 66 H Alkaline Phosphatase Total Creatine Kinase C-Reactive Protein Total Protein 5.7 L Albumin 1.5 L Folate PTH Intact Urine WBC (Auto) Urine Creatinine Urine Chloride Urine Total Protein Vancomycin Trough Miscellaneous Test Crossmatch 06/03/18 06/03/18 06/03/18 03:31 09:18 09:18 WBC RBC Hgb Hct MCHC RDW Plt Count Lymph % (Auto) [place] % (Auto) Lymph # [place] # Seg Neutrophils % Seg Neuts % (Manual) Lymphocytes % (Manual) Seg Neutrophils # Seg Neutrophils # Man Lymphocytes # (Manual) PT 17.1 H INR 1.34 H APTT POC ABG pH POC ABG pCO2 POC ABG pO2 Sodium 136 L Potassium Chloride Carbon Dioxide BUN 41 H Creatinine 3.4 H Glucose 129 H POC Glucose Lactic Acid Calcium 7.4 L Phosphorus Magnesium Iron TIBC AST ALT Alkaline Phosphatase Total Creatine Kinase C-Reactive Protein 11.10 H Total Protein Albumin Folate PTH Intact Urine WBC (Auto) Urine Creatinine Urine Chloride Urine Total Protein Vancomycin Trough Miscellaneous Test Crossmatch 06/03/18 06/03/18 06/04/18 16:07 21:18 04:31 WBC RBC Hgb Hct MCHC RDW Plt Count Lymph % (Auto) [place] % (Auto) Lymph # [place] # Seg Neutrophils % Seg Neuts % (Manual) Lymphocytes % (Manual) Seg Neutrophils # Seg Neutrophils # Man Lymphocytes # (Manual) PT INR APTT POC ABG pH POC ABG pCO2 POC ABG pO2 Sodium Potassium Chloride Carbon Dioxide BUN 55 H Creatinine 3.7 H Glucose 151 H POC Glucose 144 H 128 H Lactic Acid Calcium 7.8 L Phosphorus 4.60 H Magnesium Iron TIBC AST ALT Alkaline Phosphatase Total Creatine Kinase C-Reactive Protein Total Protein Albumin Folate PTH Intact Urine WBC (Auto) Urine Creatinine Urine Chloride Urine Total Protein Vancomycin Trough Miscellaneous Test Crossmatch 06/04/18 06/04/18 06:14 11:38 WBC RBC Hgb Hct MCHC RDW Plt Count Lymph % (Auto) [place] % (Auto) Lymph # [place] # Seg Neutrophils % Seg Neuts % (Manual) Lymphocytes % (Manual) Seg Neutrophils # Seg Neutrophils # Man Lymphocytes # (Manual) PT INR APTT POC ABG pH POC ABG pCO2 POC ABG pO2 Sodium Potassium Chloride Carbon Dioxide BUN Creatinine Glucose POC Glucose 145 H 129 H Lactic Acid Calcium Phosphorus Magnesium Iron TIBC AST ALT Alkaline Phosphatase Total Creatine Kinase C-Reactive Protein Total Protein Albumin Folate PTH Intact Urine WBC (Auto) Urine Creatinine Urine Chloride Urine Total Protein Vancomycin Trough Miscellaneous Test Crossmatch Allied health notes reviewed: nursing
[2018-06-04] MEDS ORDERED: TPN ADULT 2,016 ML IV SCH (20:00)
[2018-06-04 20:31] LABS: Hematocrit 27.3 % (35.5-45.6); Hemoglobin 8.8 gm/dl (11.8-15.2)
[2018-06-04] MEDS: APRESOLINE IV PRN (21:39)
[2018-06-04] MEDS: MORPHINE IV PRN (21:59)
--- NOTE | 2018-06-04 22:42 | Hem/Onc Progress Note ---
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 Ultrasound Kidneys showed bilat hydronephrosis CT Abd shows Pelvic mass with multiple large lymph nodes Had bilateral nephrostomy tubes placed 05/14/[address] Freeman. abnormal renal function - HD - as per nephrology #Acute DVT right leg - below knee No anticoagulation for now because of bilateral nephrostomy tubes and abdo issues. 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 06/04- no BM - as per staff and pt info - Patient Problems (1) Pelvic mass in male Current Visit: Yes Status: Acute Subjective Date of service: 06/04/18 Principal diagnosis: sq ca - pelvic mass Interval history: pt had diverting colostomy 05/26 has colostomy - nephrostomy and abdo drain 06/01 - d/w path - no sample from 05/26 06/03 eval - NGT removed - pt transferred to medical floor. 06/04- still no BM Objective - Constitutional Vitals: Last Vital Signs Temp 98.1 F 06/04/18 20:15 Pulse 92 H 06/04/18 22:13 Resp 32 H 06/04/18 22:13 BP 177/118 06/04/18 20:14 Pulse Ox 95 06/04/18 22:25 Pain Intensity (0-10): 1/10 General appearance: mild distress Performance status: 4-completely disabled - EENT Eyes: PERRL ENT: clear oral mucosa Lymph node exam: negative cervical, negative supraclavicular - Neck Neck: supple - Respiratory Respiratory effort: Positive: other (slightly SOB) Respiratory: bilateral: CTA (anteriorly) - Cardiovascular Heart Sounds: Present: S1 & S2 Extremities: No edema - Gastrointestinal General gastrointestinal: Present: soft, other (stomy+) Rectal Exam: deferred - Genitourinary Male genitourinary: Present: deferred - Integumentary Integumentary: warm - Musculoskeletal Musculoskeletal: strength equal bilaterally - Neurologic Neurologic: moves all extremities - Labs Lab Results: Laboratory Results - last 24 hr 06/04/18 06/04/18 06/04/18 04:31 06:14 11:38 Hgb Hct Sodium 139 Potassium 4.3 Chloride 101.0 Carbon Dioxide 23 Anion Gap 19 BUN 55 H Creatinine 3.7 H Estimated GFR 21 BUN/Creatinine Ratio 15 Glucose 151 H POC Glucose 145 H 129 H Calcium 7.8 L Phosphorus 4.60 H Magnesium 2.10 06/04/18 06/04/18 06/04/18 17:09 20:00 21:29 Hgb 8.8 L Hct 27.3 L Sodium Potassium Chloride Carbon Dioxide Anion Gap BUN Creatinine Estimated GFR BUN/Creatinine Ratio Glucose POC Glucose 142 H 130 H Calcium Phosphorus Magnesium
[2018-06-05] MEDS: HumuLIN R SUB-Q SCH ×5 (00:26→14:06)
[2018-06-05] MEDS: ATIVAN IV PRN (00:32)
[2018-06-05] MEDS: APRESOLINE IV PRN ×3 (04:54→16:10)
[2018-06-05] MEDS: FLAGYL 500 MG/100 ML 500 MG/100 ML BAG IV SCH ×3 (05:02→23:03)
[2018-06-05] MEDS: APRESOLINE PO SCH ×2 (05:02→14:07)
[2018-06-05 07:49] LABS: Basophils # (Auto) 0.1 K/mm3 (0.0-0.1); Basophils % (Auto) 0.6 % (0.0-1.8); Eosinophils % (Auto) 0.2 % (0.0-4.3); Hematocrit 25.6 % (35.5-45.6); Hemoglobin 8.3 gm/dl (11.8-15.2); Lymphocytes # (Auto) 0.9 K/mm3 (1.2-5.4); Lymphocytes % (Auto) 4.7 % (13.4-35.0); Mean Corpuscular HGB Conc 32 % (32-34); Mean Corpuscular Hemoglobin 28 pg (28-32); Mean Corpuscular Volume 87 fl (84-94); Monocytes # (Auto) 1.1 K/mm3 (0.0-0.8); Monocytes % (Auto) 5.6 % (0.0-7.3); Platelet Count 568 K/mm3 (140-440); Red Blood Count 2.94 M/mm3 (3.65-5.03); Red Cell Distribution Width 15.7 % (13.2-15.2)
--- NOTE | 2018-06-05 07:49 | Progress Note ---
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 Hypertensive urgency, Sinus tachycardia with HR 160s CTA negative for PE Hyperkalemia Hypernatrmia Metabolic acidosis Acute blood loss anemia Moderate to severe protein calorie malnutrition - continue supplemental oxygen to keep sats > 90% - NIPPV prn for work of breathing -follow up CXR - continue bronchodilators with pulmonary hygiene per RT - HD/UF for toxin and volume clearance - continue anti-infective's per ID recs - continue TPN for now (enteral nutrition once cleared by surgery) - Malignancy per heme-oncologist - continue mobility protocol for pressure ulcer prophylaxis - s/p surgery 05/26 (had ex-lap; matted abdominal organs, pus - Enterostomy tube decompression,loop colostomy and large triple lumen sump drainage of pelvis) - s/p bilateral nephrostomy tubes placed 05/14/[address] Freeman.(CTA negative for P.E.) - continue other care per attending / other consultants -discharge planning...probably SNF to complete antibiotics, TPN and for low level rehab Full code status Subjective Date of service: 06/05/18 Principal diagnosis: sq ca - pelvic mass Interval history: Patient is seen today for: Acute Hypoxemic Resp Failure; Sepsis Syndrome; Acute VTE; Prostate Cancer Seen and examined. vitals, labs, medications, chart reviewed.; 24hour events reviewed; nursing and respiratory care staff consulted; no adverse overnight events reported to me; Objective Vital Signs - 12hr 06/04/18 06/04/18 06/04/18 20:00 20:14 20:15 Temperature 98.1 F 98.1 F Pulse Rate 103 H 101 H 103 H Respiratory 20 20 Rate Respiratory 22 Rate [Abdomen] Blood Pressure 177/118 Blood Pressure [Right] O2 Sat by Pulse 97 97 Oximetry 06/04/18 06/04/18 06/04/18 20:58 21:59 22:13 Temperature Pulse Rate 92 H Respiratory 20 22 32 H Rate Respiratory Rate [Abdomen] Blood Pressure Blood Pressure [Right] O2 Sat by Pulse 96 Oximetry 06/04/18 06/05/18 06/05/18 22:25 00:47 01:07 Temperature 98.9 F Pulse Rate 103 H 78 Respiratory 32 H 20 Rate Respiratory Rate [Abdomen] Blood Pressure Blood Pressure 164/95 [Right] O2 Sat by Pulse 95 98 92 Oximetry 06/05/18 06/05/18 01:47 05:20 Temperature 98.2 F Pulse Rate 85 Respiratory 18 Rate Respiratory Rate [Abdomen] Blood Pressure Blood Pressure 182/102 [Right] O2 Sat by Pulse 97 92 Oximetry Constitutional: no acute distress, alert, other (chronically ill looking middle aged AAM, normocephalic and atraumatic, ) Eyes: non-icteric ENT: oropharynx moist Neck: supple, no lymphadenopathy, no JVD, other (no thyromegaly) Effort: mildly labored Ascultation: Bilateral: diminished breath sounds, rhonchi (scant in bases) Percussion: Bilateral: not dull Cardiovascular: regular rate and rhythm, other (No R/M) Gastrointestinal: hypoactive bowel sounds, soft, tender (mild), other (Distended ; No palpable HSM, bilateral nephrostomy tubes,) Integumentary: other (femoral vascath) Extremities: no cyanosis, no edema, pulses normal, no ischemia or petechiae Neurologic: normal mental status, non-focal exam, pupils equal and round, other (weak) Psychiatric: mood appropriate, affect normal CBC and BMP: 06/12/18 04:12 06/13/18 05:59 ABG, PT/INR, D-dimer: ABG POC ABG pH 7.362 (7.35-7.45) 05/31/18 09:58 POC ABG pCO2 36.4 (35-45) 05/31/18 09:58 POC ABG pO2 101 (80-105) 05/31/18 09:58 POC ABG HCO3 20.7 05/31/18 09:58 POC ABG Total CO2 22 05/31/18 09:58 POC ABG O2 Sat 98 05/31/18 09:58 PT/INR, D-dimer PT 17.1 Sec. (12.2-14.9) H 06/03/18 09:18 INR 1.34 (0.87-1.13) H 06/03/18 09:18 Abnormal lab findings: Abnormal Labs 05/13/18 05/13/18 05/13/18 04:27 04:27 19:39 WBC RBC 3.13 L Hgb 9.4 L Hct 26.8 L MCHC 35 H RDW Plt Count Lymph % (Auto) [place] % (Auto) 9.6 H Lymph # [place] # Seg Neutrophils % Seg Neuts % (Manual) Lymphocytes % (Manual) Seg Neutrophils # Seg Neutrophils # Man Lymphocytes # (Manual) PT INR APTT POC ABG pH POC ABG pCO2 POC ABG pO2 Sodium 132 L Potassium 5.5 H Chloride 94.1 L Carbon Dioxide 19 L BUN 72 H Creatinine 14.4 H Glucose POC Glucose Lactic Acid Calcium Phosphorus Magnesium Iron TIBC AST ALT Alkaline Phosphatase Total Creatine Kinase C-Reactive Protein Total Protein Albumin 2.8 L Folate PTH Intact Urine WBC (Auto) Urine Creatinine 66.0 H Urine Chloride 27.8 L Urine Total Protein 24 H Vancomycin Trough Miscellaneous Test Crossmatch 05/13/18 05/14/18 05/14/18 20:00 05:05 05:05 WBC RBC Hgb Hct MCHC RDW Plt Count Lymph % (Auto) [place] % (Auto) Lymph # [place] # Seg Neutrophils % Seg Neuts % (Manual) Lymphocytes % (Manual) Seg Neutrophils # Seg Neutrophils # Man Lymphocytes # (Manual) PT INR APTT POC ABG pH POC ABG pCO2 POC ABG pO2 Sodium 132 L 131 L Potassium 5.2 H 5.8 H Chloride 93.0 L 95.6 L Carbon Dioxide 19 L 20 L BUN 74 H 81 H Creatinine 15.0 H 16.6 H Glucose 134 H 127 H POC Glucose Lactic Acid Calcium 8.2 L 7.9 L Phosphorus 6.30 H Magnesium Iron TIBC AST ALT Alkaline Phosphatase Total Creatine Kinase 236 H C-Reactive Protein Total Protein Albumin Folate PTH Intact 65.37 H Urine WBC (Auto) Urine Creatinine Urine Chloride Urine Total Protein Vancomycin Trough Miscellaneous Test Crossmatch 05/14/18 05/14/18 05/14/18 09:28 10:56 13:29 WBC RBC Hgb Hct MCHC RDW Plt Count Lymph % (Auto) [place] % (Auto) Lymph # [place] # Seg Neutrophils % Seg Neuts % (Manual) Lymphocytes % (Manual) Seg Neutrophils # Seg Neutrophils # Man Lymphocytes # (Manual) PT INR APTT 38.2 H POC ABG pH POC ABG pCO2 POC ABG pO2 Sodium Potassium Chloride Carbon Dioxide BUN Creatinine Glucose POC Glucose 127 H 126 H Lactic Acid Calcium Phosphorus Magnesium Iron TIBC AST ALT Alkaline Phosphatase Total Creatine Kinase C-Reactive Protein Total Protein Albumin Folate PTH Intact Urine WBC (Auto) Urine Creatinine Urine Chloride Urine Total Protein Vancomycin Trough Miscellaneous Test Crossmatch 05/15/18 05/15/18 05/16/18 08:06 08:06 07:02 WBC RBC 2.84 L 2.74 L Hgb 8.5 L 8.5 L Hct 24.2 L 23.5 L MCHC 35 H 36 H RDW Plt Count Lymph % (Auto) [place] % (Auto) 10.4 H 11.0 H Lymph # 1.1 L [place] # 0.9 H Seg Neutrophils % 72.6 H Seg Neuts % (Manual) Lymphocytes % (Manual) Seg Neutrophils # Seg Neutrophils # Man Lymphocytes # (Manual) PT INR APTT POC ABG pH POC ABG pCO2 POC ABG pO2 Sodium Potassium Chloride Carbon Dioxide 19 L BUN 66 H Creatinine 12.0 H Glucose 115 H POC Glucose Lactic Acid Calcium 8.1 L Phosphorus Magnesium Iron TIBC AST ALT Alkaline Phosphatase Total Creatine Kinase C-Reactive Protein Total Protein Albumin Folate PTH Intact Urine WBC (Auto) Urine Creatinine Urine Chloride Urine Total Protein Vancomycin Trough Miscellaneous Test Crossmatch 05/16/18 05/16/18 05/17/18 07:02 07:02 05:08 WBC RBC 2.78 L Hgb 8.2 L Hct 23.9 L MCHC RDW Plt Count Lymph % (Auto) [place] % (Auto) 13.9 H Lymph # [place] # 0.9 H Seg Neutrophils % Seg Neuts % (Manual) Lymphocytes % (Manual) Seg Neutrophils # Seg Neutrophils # Man Lymphocytes # (Manual) PT INR APTT POC ABG pH POC ABG pCO2 POC ABG pO2 Sodium Potassium Chloride Carbon Dioxide BUN 28 H Creatinine 2.4 H D Glucose POC Glucose Lactic Acid Calcium 8.3 L Phosphorus Magnesium 1.50 L Iron 24 L TIBC 160 L AST ALT Alkaline Phosphatase Total Creatine Kinase C-Reactive Protein Total Protein Albumin Folate 5.39 L PTH Intact Urine WBC (Auto) Urine Creatinine Urine Chloride Urine Total Protein Vancomycin Trough Miscellaneous Test Crossmatch 05/17/18 05/18/18 05/18/18 05:08 05:57 05:57 WBC RBC 2.79 L Hgb 8.3 L Hct 24.0 L MCHC 35 H RDW Plt Count Lymph % (Auto) [place] % (Auto) 11.8 H Lymph # [place] # 0.9 H Seg Neutrophils % Seg Neuts % (Manual) Lymphocytes % (Manual) Seg Neutrophils # Seg Neutrophils # Man Lymphocytes # (Manual) PT INR APTT POC ABG pH POC ABG pCO2 POC ABG pO2 Sodium Potassium Chloride Carbon Dioxide BUN Creatinine Glucose POC Glucose Lactic Acid Calcium 7.7 L 8.0 L Phosphorus Magnesium 1.60 L Iron TIBC AST ALT Alkaline Phosphatase Total Creatine Kinase C-Reactive Protein Total Protein Albumin Folate PTH Intact Urine WBC (Auto) Urine Creatinine Urine Chloride Urine Total Protein Vancomycin Trough Miscellaneous Test Crossmatch 05/19/18 05/19/18 05/20/18 05:33 05:33 05:38 WBC RBC 2.95 L Hgb 8.8 L Hct 25.8 L MCHC RDW Plt Count Lymph % (Auto) 10.1 L [place] % (Auto) Lymph # 1.1 L [place] # Seg Neutrophils % 85.2 H Seg Neuts % (Manual) Lymphocytes % (Manual) Seg Neutrophils # 9.0 H Seg Neutrophils # Man Lymphocytes # (Manual) PT INR APTT POC ABG pH POC ABG pCO2 POC ABG pO2 Sodium 135 L Potassium Chloride Carbon Dioxide BUN Creatinine Glucose 132 H POC Glucose Lactic Acid Calcium 7.8 L 8.3 L Phosphorus Magnesium 1.40 L Iron TIBC AST ALT Alkaline Phosphatase Total Creatine Kinase C-Reactive Protein Total Protein Albumin Folate PTH Intact Urine WBC (Auto) Urine Creatinine Urine Chloride Urine Total Protein Vancomycin Trough Miscellaneous Test Crossmatch 05/21/18 05/21/18 05/22/18 04:46 15:30 06:49 WBC 20.0 H RBC 2.70 L Hgb 7.8 L Hct 23.3 L MCHC RDW Plt Count Lymph % (Auto) [place] % (Auto) Lymph # [place] # Seg Neutrophils % Seg Neuts % (Manual) 85.0 H Lymphocytes % (Manual) 4.0 L Seg Neutrophils # Seg Neutrophils # Man 17.0 H Lymphocytes # (Manual) 0.8 L PT INR APTT POC ABG pH POC ABG pCO2 POC ABG pO2 Sodium 135 L Potassium 3.5 L Chloride Carbon Dioxide 21 L BUN 22 H Creatinine Glucose POC Glucose Lactic Acid Calcium 8.1 L Phosphorus Magnesium Iron TIBC AST ALT Alkaline Phosphatase Total Creatine Kinase C-Reactive Protein Total Protein Albumin Folate PTH Intact Urine WBC (Auto) 28.0 H Urine Creatinine Urine Chloride Urine Total Protein Vancomycin Trough Miscellaneous Test Crossmatch 05/22/18 05/22/18 05/23/18 06:49 11:23 09:03 WBC RBC Hgb Hct MCHC RDW Plt Count Lymph % (Auto) [place] % (Auto) Lymph # [place] # Seg Neutrophils % Seg Neuts % (Manual) Lymphocytes % (Manual) Seg Neutrophils # Seg Neutrophils # Man Lymphocytes # (Manual) PT INR APTT POC ABG pH POC ABG pCO2 POC ABG pO2 Sodium 134 L Potassium 3.5 L Chloride Carbon Dioxide 21 L BUN 35 H 36 H Creatinine 1.7 H Glucose 107 H POC Glucose Lactic Acid Calcium 7.9 L Phosphorus Magnesium 2.50 H Iron TIBC AST ALT Alkaline Phosphatase Total Creatine Kinase C-Reactive Protein Total Protein Albumin Folate PTH Intact Urine WBC (Auto) Urine Creatinine Urine Chloride Urine Total Protein Vancomycin Trough Miscellaneous Test Crossmatch See Detail 05/23/18 05/23/18 05/23/18 09:03 09:03 17:34 WBC 26.3 H RBC 3.57 L Hgb 10.4 L Hct 31.1 L D MCHC RDW Plt Count Lymph % (Auto) [place] % (Auto) Lymph # [place] # Seg Neutrophils % Seg Neuts % (Manual) Lymphocytes % (Manual) Seg Neutrophils # Seg Neutrophils # Man Lymphocytes # (Manual) PT 18.3 H INR 1.43 H APTT 40.0 H POC ABG pH POC ABG pCO2 POC ABG pO2 Sodium Potassium Chloride Carbon Dioxide BUN Creatinine Glucose POC Glucose 108 H Lactic Acid Calcium Phosphorus Magnesium Iron TIBC AST ALT Alkaline Phosphatase Total Creatine Kinase C-Reactive Protein Total Protein Albumin Folate PTH Intact Urine WBC (Auto) Urine Creatinine Urine Chloride Urine Total Protein Vancomycin Trough Miscellaneous Test Crossmatch 05/23/18 05/24/18 05/24/18 21:14 04:43 08:04 WBC RBC Hgb Hct MCHC RDW Plt Count Lymph % (Auto) [place] % (Auto) Lymph # [place] # Seg Neutrophils % Seg Neuts % (Manual) Lymphocytes % (Manual) Seg Neutrophils # Seg Neutrophils # Man Lymphocytes # (Manual) PT INR APTT POC ABG pH POC ABG pCO2 POC ABG pO2 Sodium 146 H Potassium Chloride 108.6 H Carbon Dioxide BUN 33 H Creatinine Glucose 109 H POC Glucose 110 H 106 H Lactic Acid Calcium 8.3 L Phosphorus Magnesium 2.50 H Iron TIBC AST ALT Alkaline Phosphatase Total Creatine Kinase C-Reactive Protein Total Protein Albumin Folate PTH Intact Urine WBC (Auto) Urine Creatinine Urine Chloride Urine Total Protein Vancomycin Trough Miscellaneous Test Crossmatch 05/25/18 05/25/18 05/25/18 05:42 05:49 19:50 WBC RBC Hgb Hct MCHC RDW Plt Count Lymph % (Auto) [place] % (Auto) Lymph # [place] # Seg Neutrophils % Seg Neuts % (Manual) Lymphocytes % (Manual) Seg Neutrophils # Seg Neutrophils # Man Lymphocytes # (Manual) PT INR APTT POC ABG pH POC ABG pCO2 POC ABG pO2 Sodium 150 H Potassium Chloride 112.5 H Carbon Dioxide BUN 34 H Creatinine Glucose 102 H POC Glucose 107 H Lactic Acid Calcium Phosphorus Magnesium Iron TIBC AST ALT Alkaline Phosphatase Total Creatine Kinase C-Reactive Protein 34.50 H Total Protein Albumin Folate PTH Intact Urine WBC (Auto) Urine Creatinine Urine Chloride Urine Total Protein Vancomycin Trough Miscellaneous Test Crossmatch 05/25/18 05/25/18 05/25/18 19:50 21:05 22:46 WBC RBC Hgb Hct MCHC RDW Plt Count Lymph % (Auto) [place] % (Auto) Lymph # [place] # Seg Neutrophils % Seg Neuts % (Manual) Lymphocytes % (Manual) Seg Neutrophils # Seg Neutrophils # Man Lymphocytes # (Manual) PT INR APTT POC ABG pH 7.483 H POC ABG pCO2 24.0 L POC ABG pO2 72 L Sodium Potassium Chloride Carbon Dioxide BUN Creatinine Glucose POC Glucose Lactic Acid 5.90 H* Calcium Phosphorus Magnesium Iron TIBC AST ALT Alkaline Phosphatase Total Creatine Kinase C-Reactive Protein Total Protein Albumin Folate PTH Intact Urine WBC (Auto) Urine Creatinine Urine Chloride Urine Total Protein Vancomycin Trough 25.1 H Miscellaneous Test Crossmatch 05/25/18 05/26/18 05/26/18 22:46 00:21 00:51 WBC RBC Hgb Hct MCHC RDW Plt Count Lymph % (Auto) [place] % (Auto) Lymph # [place] # Seg Neutrophils % Seg Neuts % (Manual) Lymphocytes % (Manual) Seg Neutrophils # Seg Neutrophils # Man Lymphocytes # (Manual) PT INR APTT POC ABG pH POC ABG pCO2 POC ABG pO2 Sodium Potassium Chloride Carbon Dioxide BUN Creatinine Glucose POC Glucose 133 H Lactic Acid 8.10 H* 6.20 H* Calcium Phosphorus Magnesium Iron TIBC AST ALT Alkaline Phosphatase Total Creatine Kinase C-Reactive Protein Total Protein Albumin Folate PTH Intact Urine WBC (Auto) Urine Creatinine Urine Chloride Urine Total Protein Vancomycin Trough Miscellaneous Test Crossmatch 05/26/18 05/26/18 05/26/18 01:13 02:24 02:24 WBC 18.7 H RBC Hgb 11.6 L Hct MCHC RDW Plt Count Lymph % (Auto) [place] % (Auto) Lymph # [place] # Seg Neutrophils % Seg Neuts % (Manual) Lymphocytes % (Manual) Seg Neutrophils # Seg Neutrophils # Man Lymphocytes # (Manual) PT INR APTT POC ABG pH POC ABG pCO2 POC ABG pO2 Sodium 147 H Potassium 6.2 H* D Chloride 111.9 H Carbon Dioxide 19 L BUN 80 H Creatinine 5.1 H D Glucose 112 H POC Glucose Lactic Acid 5.20 H* Calcium 6.7 L D Phosphorus Magnesium Iron TIBC AST ALT Alkaline Phosphatase Total Creatine Kinase C-Reactive Protein Total Protein Albumin Folate PTH Intact Urine WBC (Auto) Urine Creatinine Urine Chloride Urine Total Protein Vancomycin Trough Miscellaneous Test Crossmatch 05/26/18 05/26/18 05/26/18 04:20 04:20 05:39 WBC RBC Hgb Hct MCHC RDW Plt Count Lymph % (Auto) [place] % (Auto) Lymph # [place] # Seg Neutrophils % Seg Neuts % (Manual) Lymphocytes % (Manual) Seg Neutrophils # Seg Neutrophils # Man Lymphocytes # (Manual) PT INR APTT POC ABG pH POC ABG pCO2 POC ABG pO2 Sodium 150 H Potassium Chloride 110.0 H Carbon Dioxide 19 L BUN 66 H Creatinine Glucose 166 H POC Glucose 187 H Lactic Acid 5.10 H* Calcium 6.9 L Phosphorus 6.70 H D Magnesium Iron TIBC AST ALT Alkaline Phosphatase Total Creatine Kinase C-Reactive Protein Total Protein Albumin Folate PTH Intact Urine WBC (Auto) Urine Creatinine Urine Chloride Urine Total Protein Vancomycin Trough Miscellaneous Test Crossmatch 05/26/18 05/26/18 05/26/18 06:02 07:29 11:00 WBC RBC Hgb Hct MCHC RDW Plt Count Lymph % (Auto) [place] % (Auto) Lymph # [place] # Seg Neutrophils % Seg Neuts % (Manual) Lymphocytes % (Manual) Seg Neutrophils # Seg Neutrophils # Man Lymphocytes # (Manual) PT INR APTT POC ABG pH POC ABG pCO2 28.8 L POC ABG pO2 Sodium Potassium Chloride Carbon Dioxide BUN Creatinine Glucose POC Glucose Lactic Acid 4.80 H* 3.80 H* Calcium Phosphorus Magnesium Iron TIBC AST ALT Alkaline Phosphatase Total Creatine Kinase C-Reactive Protein Total Protein Albumin Folate PTH Intact Urine WBC (Auto) Urine Creatinine Urine Chloride Urine Total Protein Vancomycin Trough Miscellaneous Test Crossmatch 05/26/18 05/26/18 05/26/18 11:01 12:28 18:00 WBC RBC Hgb Hct MCHC RDW Plt Count Lymph % (Auto) [place] % (Auto) Lymph # [place] # Seg Neutrophils % Seg Neuts % (Manual) Lymphocytes % (Manual) Seg Neutrophils # Seg Neutrophils # Man Lymphocytes # (Manual) PT INR APTT POC ABG pH POC ABG pCO2 POC ABG pO2 Sodium 150 H 151 H Potassium 5.3 H D 6.1 H* Chloride 110.3 H 117.0 H Carbon Dioxide 21 L 20 L BUN 75 H 77 H Creatinine 4.3 H D 4.6 H Glucose 161 H POC Glucose 114 H Lactic Acid Calcium 7.5 L 6.7 L Phosphorus Magnesium Iron TIBC AST 1041 H ALT 406 H Alkaline Phosphatase 281 H Total Creatine Kinase C-Reactive Protein Total Protein 4.4 L Albumin 1.3 L Folate PTH Intact Urine WBC (Auto) Urine Creatinine Urine Chloride Urine Total Protein Vancomycin Trough Miscellaneous Test Crossmatch 05/26/18 05/26/18 05/27/18 18:02 19:17 01:01 WBC 21.7 H RBC 2.70 L Hgb 7.8 L D Hct 24.6 L D MCHC RDW 15.3 H Plt Count Lymph % (Auto) [place] % (Auto) Lymph # [place] # Seg Neutrophils % Seg Neuts % (Manual) 94.0 H Lymphocytes % (Manual) 3.0 L Seg Neutrophils # Seg Neutrophils # Man 20.4 H Lymphocytes # (Manual) 0.7 L PT INR APTT POC ABG pH 7.159 L 7.205 L POC ABG pCO2 54.5 H 53.0 H POC ABG pO2 252 H Sodium Potassium Chloride Carbon Dioxide BUN Creatinine Glucose POC Glucose Lactic Acid Calcium Phosphorus Magnesium Iron TIBC AST ALT Alkaline Phosphatase Total Creatine Kinase C-Reactive Protein Total Protein Albumin Folate PTH Intact Urine WBC (Auto) Urine Creatinine Urine Chloride Urine Total Protein Vancomycin Trough Miscellaneous Test Crossmatch 05/27/18 05/27/18 05/27/18 05:15 05:15 06:11 WBC 24.9 H RBC 2.86 L Hgb 8.1 L Hct 25.9 L MCHC RDW 15.5 H Plt Count Lymph % (Auto) [place] % (Auto) Lymph # [place] # Seg Neutrophils % Seg Neuts % (Manual) Lymphocytes % (Manual) Seg Neutrophils # Seg Neutrophils # Man Lymphocytes # (Manual) PT INR APTT POC ABG pH 7.265 L POC ABG pCO2 46.2 H POC ABG pO2 111 H Sodium 149 H Potassium 6.9 H* Chloride 113.5 H Carbon Dioxide BUN 89 H Creatinine 5.2 H Glucose 118 H POC Glucose Lactic Acid Calcium 7.0 L Phosphorus 9.70 H D Magnesium Iron TIBC AST 876 H ALT 408 H Alkaline Phosphatase Total Creatine Kinase C-Reactive Protein Total Protein 5.2 L Albumin 1.5 L Folate PTH Intact Urine WBC (Auto) Urine Creatinine Urine Chloride Urine Total Protein Vancomycin Trough Miscellaneous Test Crossmatch 05/27/18 05/27/18 05/27/18 08:48 10:22 10:22 WBC RBC Hgb Hct MCHC RDW Plt Count Lymph % (Auto) [place] % (Auto) Lymph # [place] # Seg Neutrophils % Seg Neuts % (Manual) Lymphocytes % (Manual) Seg Neutrophils # Seg Neutrophils # Man Lymphocytes # (Manual) PT INR APTT POC ABG pH POC ABG pCO2 POC ABG pO2 Sodium 146 H Potassium 6.1 H* Chloride 108.2 H Carbon Dioxide 21 L BUN 88 H Creatinine 5.6 H Glucose 163 H POC Glucose 164 H Lactic Acid Calcium 6.7 L Phosphorus Magnesium Iron TIBC AST ALT Alkaline Phosphatase Total Creatine Kinase C-Reactive Protein 40.70 H Total Protein Albumin Folate PTH Intact Urine WBC (Auto) Urine Creatinine Urine Chloride Urine Total Protein Vancomycin Trough Miscellaneous Test Crossmatch 05/27/18 05/27/18 05/27/18 13:02 17:39 23:27 WBC RBC Hgb Hct MCHC RDW Plt Count Lymph % (Auto) [place] % (Auto) Lymph # [place] # Seg Neutrophils % Seg Neuts % (Manual) Lymphocytes % (Manual) Seg Neutrophils # Seg Neutrophils # Man Lymphocytes # (Manual) PT INR APTT POC ABG pH POC ABG pCO2 POC ABG pO2 Sodium Potassium Chloride Carbon Dioxide BUN Creatinine Glucose POC Glucose 59 L 132 H Lactic Acid Calcium Phosphorus Magnesium Iron TIBC AST ALT Alkaline Phosphatase Total Creatine Kinase C-Reactive Protein Total Protein Albumin Folate PTH Intact Urine WBC (Auto) Urine Creatinine Urine Chloride Urine Total Protein Vancomycin Trough Miscellaneous Test Flexitest 1 H Crossmatch 05/27/18 05/28/18 05/28/18 Unknown 04:32 05:00 WBC RBC Hgb Hct MCHC RDW Plt Count Lymph % (Auto) [place] % (Auto) Lymph # [place] # Seg Neutrophils % Seg Neuts % (Manual) Lymphocytes % (Manual) Seg Neutrophils # Seg Neutrophils # Man Lymphocytes # (Manual) PT INR APTT POC ABG pH POC ABG pCO2 POC ABG pO2 134 H Sodium Potassium Chloride Carbon Dioxide BUN 69 H Creatinine 4.4 H Glucose 118 H POC Glucose Lactic Acid Calcium 8.0 L D Phosphorus 6.80 H D Magnesium Iron TIBC AST ALT Alkaline Phosphatase Total Creatine Kinase C-Reactive Protein Total Protein Albumin Folate PTH Intact Urine WBC (Auto) 120.0 H Urine Creatinine Urine Chloride Urine Total Protein Vancomycin Trough Miscellaneous Test Crossmatch 05/28/18 05/28/18 05/28/18 05:00 05:27 13:04 WBC 26.5 H RBC 2.69 L Hgb 7.7 L Hct 23.6 L MCHC RDW Plt Count Lymph % (Auto) [place] % (Auto) Lymph # [place] # Seg Neutrophils % Seg Neuts % (Manual) 96.0 H Lymphocytes % (Manual) 0 L Seg Neutrophils # Seg Neutrophils # Man 25.4 H Lymphocytes # (Manual) 0.0 L PT INR APTT POC ABG pH POC ABG pCO2 POC ABG pO2 Sodium Potassium Chloride Carbon Dioxide BUN Creatinine Glucose POC Glucose 128 H 155 H Lactic Acid Calcium Phosphorus Magnesium Iron TIBC AST ALT Alkaline Phosphatase Total Creatine Kinase C-Reactive Protein Total Protein Albumin Folate PTH Intact Urine WBC (Auto) Urine Creatinine Urine Chloride Urine Total Protein Vancomycin Trough Miscellaneous Test Crossmatch 05/28/18 05/29/18 05/29/18 17:56 03:35 04:00 WBC RBC Hgb Hct MCHC RDW Plt Count Lymph % (Auto) [place] % (Auto) Lymph # [place] # Seg Neutrophils % Seg Neuts % (Manual) Lymphocytes % (Manual) Seg Neutrophils # Seg Neutrophils # Man Lymphocytes # (Manual) PT INR APTT POC ABG pH 7.471 H POC ABG pCO2 POC ABG pO2 78 L Sodium Potassium Chloride Carbon Dioxide BUN 50 H Creatinine 3.9 H Glucose POC Glucose 110 H Lactic Acid Calcium 7.7 L Phosphorus Magnesium 1.50 L Iron TIBC AST 218 H ALT 204 H Alkaline Phosphatase Total Creatine Kinase C-Reactive Protein Total Protein 5.4 L Albumin 1.6 L Folate PTH Intact Urine WBC (Auto) Urine Creatinine Urine Chloride Urine Total Protein Vancomycin Trough Miscellaneous Test Crossmatch 05/29/18 05/29/18 05/30/18 11:51 23:56 04:54 WBC RBC Hgb Hct MCHC RDW Plt Count Lymph % (Auto) [place] % (Auto) Lymph # [place] # Seg Neutrophils % Seg Neuts % (Manual) Lymphocytes % (Manual) Seg Neutrophils # Seg Neutrophils # Man Lymphocytes # (Manual) PT INR APTT POC ABG pH POC ABG pCO2 POC ABG pO2 Sodium Potassium Chloride Carbon Dioxide BUN Creatinine Glucose POC Glucose 131 H 119 H 115 H Lactic Acid Calcium Phosphorus Magnesium Iron TIBC AST ALT Alkaline Phosphatase Total Creatine Kinase C-Reactive Protein Total Protein Albumin Folate PTH Intact Urine WBC (Auto) Urine Creatinine Urine Chloride Urine Total Protein Vancomycin Trough Miscellaneous Test Crossmatch 05/30/18 05/30/18 05/30/18 05:07 05:15 05:15 WBC 16.2 H RBC 2.53 L Hgb 7.4 L Hct 21.9 L MCHC RDW Plt Count Lymph % (Auto) [place] % (Auto) Lymph # [place] # Seg Neutrophils % Seg Neuts % (Manual) Lymphocytes % (Manual) Seg Neutrophils # Seg Neutrophils # Man Lymphocytes # (Manual) PT INR APTT POC ABG pH POC ABG pCO2 34.5 L POC ABG pO2 133 H Sodium 135 L Potassium Chloride 97.5 L Carbon Dioxide BUN 69 H Creatinine 5.4 H Glucose 105 H POC Glucose Lactic Acid Calcium 7.5 L Phosphorus 5.30 H D Magnesium Iron TIBC AST ALT Alkaline Phosphatase Total Creatine Kinase C-Reactive Protein Total Protein Albumin Folate PTH Intact Urine WBC (Auto) Urine Creatinine Urine Chloride Urine Total Protein Vancomycin Trough Miscellaneous Test Crossmatch 05/30/18 05/30/18 05/31/18 12:13 17:10 04:50 WBC 18.7 H RBC 2.86 L Hgb 8.2 L Hct 24.8 L MCHC RDW Plt Count Lymph % (Auto) [place] % (Auto) Lymph # [place] # Seg Neutrophils % Seg Neuts % (Manual) 91.0 H Lymphocytes % (Manual) 2.0 L Seg Neutrophils # Seg Neutrophils # Man 17.0 H Lymphocytes # (Manual) 0.4 L PT INR APTT POC ABG pH POC ABG pCO2 POC ABG pO2 Sodium Potassium Chloride Carbon Dioxide BUN Creatinine Glucose POC Glucose 132 H 122 H Lactic Acid Calcium Phosphorus Magnesium Iron TIBC AST ALT Alkaline Phosphatase Total Creatine Kinase C-Reactive Protein Total Protein Albumin Folate PTH Intact Urine WBC (Auto) Urine Creatinine Urine Chloride Urine Total Protein Vancomycin Trough Miscellaneous Test Crossmatch 05/31/18 05/31/18 05/31/18 04:50 05:45 11:37 WBC RBC Hgb Hct MCHC RDW Plt Count Lymph % (Auto) [place] % (Auto) Lymph # [place] # Seg Neutrophils % Seg Neuts % (Manual) Lymphocytes % (Manual) Seg Neutrophils # Seg Neutrophils # Man Lymphocytes # (Manual) PT INR APTT POC ABG pH POC ABG pCO2 POC ABG pO2 Sodium 132 L Potassium Chloride 92.4 L Carbon Dioxide BUN 77 H Creatinine 5.9 H Glucose POC Glucose 111 H 136 H Lactic Acid Calcium 7.3 L Phosphorus 6.40 H D Magnesium Iron TIBC AST ALT Alkaline Phosphatase Total Creatine Kinase C-Reactive Protein Total Protein Albumin Folate PTH Intact Urine WBC (Auto) Urine Creatinine Urine Chloride Urine Total Protein Vancomycin Trough Miscellaneous Test Crossmatch 05/31/18 06/01/18 06/01/18 17:52 00:09 04:00 WBC RBC Hgb Hct MCHC RDW Plt Count Lymph % (Auto) [place] % (Auto) Lymph # [place] # Seg Neutrophils % Seg Neuts % (Manual) Lymphocytes % (Manual) Seg Neutrophils # Seg Neutrophils # Man Lymphocytes # (Manual) PT INR APTT POC ABG pH POC ABG pCO2 POC ABG pO2 Sodium Potassium Chloride 97.5 L Carbon Dioxide BUN 49 H Creatinine 4.2 H Glucose 104 H POC Glucose 115 H 114 H Lactic Acid Calcium 7.3 L Phosphorus 4.70 H D Magnesium Iron TIBC AST ALT Alkaline Phosphatase Total Creatine Kinase C-Reactive Protein Total Protein Albumin Folate PTH Intact Urine WBC (Auto) Urine Creatinine Urine Chloride Urine Total Protein Vancomycin Trough Miscellaneous Test Crossmatch 06/01/18 06/01/18 06/02/18 11:10 17:56 00:15 WBC RBC Hgb Hct MCHC RDW Plt Count Lymph % (Auto) [place] % (Auto) Lymph # [place] # Seg Neutrophils % Seg Neuts % (Manual) Lymphocytes % (Manual) Seg Neutrophils # Seg Neutrophils # Man Lymphocytes # (Manual) PT INR APTT POC ABG pH POC ABG pCO2 POC ABG pO2 Sodium Potassium Chloride Carbon Dioxide BUN Creatinine Glucose POC Glucose 123 H 126 H 135 H Lactic Acid Calcium Phosphorus Magnesium Iron TIBC AST ALT Alkaline Phosphatase Total Creatine Kinase C-Reactive Protein Total Protein Albumin Folate PTH Intact Urine WBC (Auto) Urine Creatinine Urine Chloride Urine Total Protein Vancomycin Trough Miscellaneous Test Crossmatch 06/02/18 06/02/18 06/02/18 05:23 12:42 13:05 WBC RBC Hgb Hct MCHC RDW Plt Count Lymph % (Auto) [place] % (Auto) Lymph # [place] # Seg Neutrophils % Seg Neuts % (Manual) Lymphocytes % (Manual) Seg Neutrophils # Seg Neutrophils # Man Lymphocytes # (Manual) PT 17.1 H INR 1.34 H APTT POC ABG pH POC ABG pCO2 POC ABG pO2 Sodium Potassium Chloride Carbon Dioxide BUN Creatinine Glucose POC Glucose 135 H 142 H Lactic Acid Calcium Phosphorus Magnesium Iron TIBC AST ALT Alkaline Phosphatase Total Creatine Kinase C-Reactive Protein Total Protein Albumin Folate PTH Intact Urine WBC (Auto) Urine Creatinine Urine Chloride Urine Total Protein Vancomycin Trough Miscellaneous Test Crossmatch 06/02/18 06/02/18 06/03/18 Unknown Unknown 00:54 WBC 20.8 H RBC 2.67 L Hgb 7.7 L Hct 23.0 L MCHC RDW Plt Count 500 H Lymph % (Auto) [place] % (Auto) Lymph # [place] # Seg Neutrophils % Seg Neuts % (Manual) Lymphocytes % (Manual) Seg Neutrophils # Seg Neutrophils # Man Lymphocytes # (Manual) PT INR APTT POC ABG pH POC ABG pCO2 POC ABG pO2 Sodium 136 L Potassium 3.5 L Chloride 96.9 L Carbon Dioxide BUN 62 H Creatinine 4.9 H Glucose 133 H POC Glucose 125 H Lactic Acid Calcium 7.2 L Phosphorus 5.00 H Magnesium Iron TIBC AST 46 H ALT 66 H Alkaline Phosphatase Total Creatine Kinase C-Reactive Protein Total Protein 5.7 L Albumin 1.5 L Folate PTH Intact Urine WBC (Auto) Urine Creatinine Urine Chloride Urine Total Protein Vancomycin Trough Miscellaneous Test Crossmatch 06/03/18 06/03/18 06/03/18 03:31 09:18 09:18 WBC RBC Hgb Hct MCHC RDW Plt Count Lymph % (Auto) [place] % (Auto) Lymph # [place] # Seg Neutrophils % Seg Neuts % (Manual) Lymphocytes % (Manual) Seg Neutrophils # Seg Neutrophils # Man Lymphocytes # (Manual) PT 17.1 H INR 1.34 H APTT POC ABG pH POC ABG pCO2 POC ABG pO2 Sodium 136 L Potassium Chloride Carbon Dioxide BUN 41 H Creatinine 3.4 H Glucose 129 H POC Glucose Lactic Acid Calcium 7.4 L Phosphorus Magnesium Iron TIBC AST ALT Alkaline Phosphatase Total Creatine Kinase C-Reactive Protein 11.10 H Total Protein Albumin Folate PTH Intact Urine WBC (Auto) Urine Creatinine Urine Chloride Urine Total Protein Vancomycin Trough Miscellaneous Test Crossmatch 06/03/18 06/03/18 06/04/18 16:07 21:18 04:31 WBC RBC Hgb Hct MCHC RDW Plt Count Lymph % (Auto) [place] % (Auto) Lymph # [place] # Seg Neutrophils % Seg Neuts % (Manual) Lymphocytes % (Manual) Seg Neutrophils # Seg Neutrophils # Man Lymphocytes # (Manual) PT INR APTT POC ABG pH POC ABG pCO2 POC ABG pO2 Sodium Potassium Chloride Carbon Dioxide BUN 55 H Creatinine 3.7 H Glucose 151 H POC Glucose 144 H 128 H Lactic Acid Calcium 7.8 L Phosphorus 4.60 H Magnesium Iron TIBC AST ALT Alkaline Phosphatase Total Creatine Kinase C-Reactive Protein Total Protein Albumin Folate PTH Intact Urine WBC (Auto) Urine Creatinine Urine Chloride Urine Total Protein Vancomycin Trough Miscellaneous Test Crossmatch 06/04/18 06/04/18 06/04/18 06:14 11:38 17:09 WBC RBC Hgb Hct MCHC RDW Plt Count Lymph % (Auto) [place] % (Auto) Lymph # [place] # Seg Neutrophils % Seg Neuts % (Manual) Lymphocytes % (Manual) Seg Neutrophils # Seg Neutrophils # Man Lymphocytes # (Manual) PT INR APTT POC ABG pH POC ABG pCO2 POC ABG pO2 Sodium Potassium Chloride Carbon Dioxide BUN Creatinine Glucose POC Glucose 145 H 129 H 142 H Lactic Acid Calcium Phosphorus Magnesium Iron TIBC AST ALT Alkaline Phosphatase Total Creatine Kinase C-Reactive Protein Total Protein Albumin Folate PTH Intact Urine WBC (Auto) Urine Creatinine Urine Chloride Urine Total Protein Vancomycin Trough Miscellaneous Test Crossmatch 06/04/18 06/04/18 06/05/18 20:00 21:29 06:30 WBC RBC Hgb 8.8 L Hct 27.3 L MCHC RDW Plt Count Lymph % (Auto) [place] % (Auto) Lymph # [place] # Seg Neutrophils % Seg Neuts % (Manual) Lymphocytes % (Manual) Seg Neutrophils # Seg Neutrophils # Man Lymphocytes # (Manual) PT INR APTT POC ABG pH POC ABG pCO2 POC ABG pO2 Sodium Potassium Chloride Carbon Dioxide BUN Creatinine Glucose POC Glucose 130 H 153 H Lactic Acid Calcium Phosphorus Magnesium Iron TIBC AST ALT Alkaline Phosphatase Total Creatine Kinase C-Reactive Protein Total Protein Albumin Folate PTH Intact Urine WBC (Auto) Urine Creatinine Urine Chloride Urine Total Protein Vancomycin Trough Miscellaneous Test Crossmatch Allied health notes reviewed: nursing
--- NOTE | 2018-06-05 07:54 | Progress Note ---
Assessment and Plan 1. Acute kidney injury: Recurrent Acute kidney injury. Initial MARYLOU in the setting of bilateral hydronephrosis secondary to pelvic mass , now s/p bilateral nephrostomy. Patient required urgent hemodialysis due to worsening renal function and persistent hyperkalemia. Last dialyzed 06/02/81. Creatinine leveled off. Renal prognosis is guarded. 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 On PPN. Continue IV fluids. 2. Electrolytes: Hyponatremia, improved. Hypokalemia, replrte K. 3. Bowel obstruction: S/p ostomy. 4. Bilateral hydronephrosis: S/p bilateral nephrostomy. S/p Cysto and drainage of abscess. 5. Respiratory failure: S/p extubated. 6. Hypertension: Increase Clonidine patch. Patient is NPO. 7. Anemia. 8. 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 Subjective Date of service: 06/05/18 Principal diagnosis: sq ca - pelvic mass Interval history: Patient was seen and examined at the bedside. Objective - Vital Signs Vital signs: Vital Signs - 12hr 06/04/18 06/04/18 06/04/18 20:00 20:14 20:15 Temperature 98.1 F 98.1 F Pulse Rate 103 H 101 H 103 H Respiratory 20 20 Rate Respiratory 22 Rate [Abdomen] Blood Pressure 177/118 Blood Pressure [Right] O2 Sat by Pulse 97 97 Oximetry 06/04/18 06/04/18 06/04/18 20:58 21:59 22:13 Temperature Pulse Rate 92 H Respiratory 20 22 32 H Rate Respiratory Rate [Abdomen] Blood Pressure Blood Pressure [Right] O2 Sat by Pulse 96 Oximetry 06/04/18 06/05/18 06/05/18 22:25 00:47 01:07 Temperature 98.9 F Pulse Rate 103 H 78 Respiratory 32 H 20 Rate Respiratory Rate [Abdomen] Blood Pressure Blood Pressure 164/95 [Right] O2 Sat by Pulse 95 98 92 Oximetry 06/05/18 06/05/18 01:47 05:20 Temperature 98.2 F Pulse Rate 85 Respiratory 18 Rate Respiratory Rate [Abdomen] Blood Pressure Blood Pressure 182/102 [Right] O2 Sat by Pulse 97 92 Oximetry - General Appearance General appearance: well-developed, appears stated age, other (not in distress) EENT: ATNC, PERRL, hearing intact Neck: supple Respiratory: Present: Clear to Ascultation Cardiology: regular, S1S2, no murmurs Gastrointestinal: normoactive bowel sounds, tenderness, distended, other ( bilateral nephrostomy, drain and ostomy noted) Integumentary: no rash Neurologic: no focal deficit, no asterixis Musculoskeletal: other (no edema) Psychiatric: cooperative - Lab 06/05/18 07:00 06/05/18 07:00 Most recent lab results Calcium 7.8 mg/dL (8.4-10.2) L 06/04/18 04:31 Phosphorus 4.60 mg/dL (2.5-4.5) H 06/04/18 04:31 Magnesium 2.10 mg/dL (1.7-2.3) 06/04/18 04:31 Urine Creatinine 66.0 mg/dL (0.1-20.0) H 05/13/18 19:39 Urine Sodium 60 mmol/L 05/13/18 19:39 Urine Total Protein 24 mg/dL (5-11.8) H 05/13/18 19:39
[2018-06-05 07:58] LABS: Calcium 7.9 mg/dL (8.4-10.2)
--- NOTE | 2018-06-05 09:40 | XRay Report ---
FINAL REPORT EXAM: XR ABD SERIES W CXR 1V HISTORY: SBO TECHNIQUE: 3 views of the abdomen. PRIORS: Abdomen x-ray June 01, 2018. FINDINGS: [id number] distended small bowel loops with a maximum diameter 3.3 cm is stable compared to the prior. No pneumatosis. No pneumoperitoneum. No significant air-fluid levels. Large bowel loops are decompressed. Bilateral percutaneous catheters are unchanged compared to the prior. Right femoral catheter is stable. There are no suspicious calcifications overlying the renal shadows. IMPRESSION: Nonspecific bowel gas pattern. Similar to prior. Differential diagnosis includes low-grade incomplete obstruction, ileus, and enterocolitis.
[2018-06-05] MEDS: MAXIPIME/NS 2 GM/100 ML 2 GM/100 ML BAG IV SCH (09:58)
[2018-06-05] MEDS: HEPARIN SUB-Q SCH ×2 (09:58→22:58)
[2018-06-05] MEDS: PEPCID IV SCH (09:59)
[2018-06-05] MEDS ORDERED: CATAPRES-TTS PATCH TD SCH (10:00)
--- NOTE | 2018-06-05 10:56 | Progress Note ---
Assessment and Plan - Patient Problems (1) Acute renal failure Current Visit: Yes Status: Acute Qualifiers: Acute renal failure type: unspecified Qualified Code(s): N17.9 - Acute kidney failure, unspecified Plan to address problem: Follow renal service. (2) Edema Current Visit: Yes Status: Acute Qualifiers: Edema type: unspecified Qualified Code(s): R60.9 - Edema, unspecified Plan to address problem: Due in part to overall tumor burden., and may be poor protien. (3) Pelvic mass in male Current Visit: Yes Status: Acute Plan to address problem: consistent with SQ cell histology, REC remains the same. (4) Sepsis Current Visit: Yes Status: Acute Plan to address problem: treat underlying issues. Subjective Date of service: 06/05/18 Principal diagnosis: sq ca - pelvic mass Interval history: I am covering DR Oates/PM group.Patient seen, resting in bed, records reviewed, cbc fair. Prostate bx with Squamous histology. REC remains the same until any further conclusive results.Treat other co morbid issues.WBC19.3, H/h8.3/25, RLA991,000. Objective - Constitutional Vitals: Vital Signs - 12hr 06/05/18 06/05/18 06/05/18 00:47 01:07 01:47 Temperature 98.9 F Pulse Rate 103 H 78 Respiratory 32 H 20 Rate Blood Pressure Blood Pressure 164/95 [Right] O2 Sat by Pulse 98 92 97 Oximetry 06/05/18 06/05/18 06/05/18 05:20 08:45 10:00 Temperature 98.2 F 97.9 F Pulse Rate 85 83 96 H Respiratory 18 22 Rate Blood Pressure 168/103 Blood Pressure 182/102 168/103 [Right] O2 Sat by Pulse 92 943 H Oximetry General appearance: Present: no acute distress - EENT Eyes: PERRL, EOM intact ENT: hearing intact, clear oral mucosa Ears: bilateral: normal - Neck Neck: supple, normal ROM - Respiratory Respiratory effort: normal Respiratory: bilateral: CTA - Breasts Breasts: deferred, normal - Cardiovascular Rhythm: regular Heart Sounds: Present: S1 & S2. Absent: gallop, rub Extremities: pulses intact, No edema, normal color, Full ROM - Gastrointestinal General gastrointestinal: Present: soft, non-tender, non-distended, normal bowel sounds Rectal Exam: deferred - Genitourinary Male genitourinary: deferred - Integumentary Integumentary: clear, warm, dry - Musculoskeletal Musculoskeletal: 1, strength equal bilaterally - Neurologic Neurologic: moves all extremities - Psychiatric Psychiatric: memory intact, appropriate mood/affect, intact judgment & insight - Labs CBC & Chem 7: 06/05/18 07:00 06/05/18 07:00 Labs: Abnormal lab results 06/04/18 06/04/18 06/04/18 Range/Units 11:38 17:09 20:00 WBC (4.5-11.0) K/mm3 RBC (3.65-5.03) M/mm3 Hgb 8.8 L (11.8-15.2) gm/dl Hct 27.3 L (35.5-45.6) % RDW (13.2-15.2) % Plt Count (140-440) K/mm3 Lymph % (Auto) (13.4-35.0) % Lymph # (1.2-5.4) K/mm3 [place] # (0.0-0.8) K/mm3 Seg Neutrophils % (40.0-70.0) % Seg Neutrophils # (1.8-7.7) K/mm3 Potassium (3.6-5.0) mmol/L BUN (9-20) mg/dL Creatinine (0.8-1.5) mg/dL Glucose (75-100) mg/dL POC Glucose 129 H 142 H (70-105) Calcium (8.4-10.2) mg/dL Phosphorus (2.5-4.5) mg/dL 06/04/18 06/05/18 06/05/18 Range/Units 21:29 06:30 07:00 WBC 19.3 H (4.5-11.0) K/mm3 RBC 2.94 L (3.65-5.03) M/mm3 Hgb 8.3 L (11.8-15.2) gm/dl Hct 25.6 L (35.5-45.6) % RDW 15.7 H (13.2-15.2) % Plt Count 568 H (140-440) K/mm3 Lymph % (Auto) 4.7 L (13.4-35.0) % Lymph # 0.9 L (1.2-5.4) K/mm3 [place] # 1.1 H (0.0-0.8) K/mm3 Seg Neutrophils % 88.9 H (40.0-70.0) % Seg Neutrophils # 17.2 H (1.8-7.7) K/mm3 Potassium (3.6-5.0) mmol/L BUN (9-20) mg/dL Creatinine (0.8-1.5) mg/dL Glucose (75-100) mg/dL POC Glucose 130 H 153 H (70-105) Calcium (8.4-10.2) mg/dL Phosphorus (2.5-4.5) mg/dL 06/05/18 Range/Units 07:00 WBC (4.5-11.0) K/mm3 RBC (3.65-5.03) M/mm3 Hgb (11.8-15.2) gm/dl Hct (35.5-45.6) % RDW (13.2-15.2) % Plt Count (140-440) K/mm3 Lymph % (Auto) (13.4-35.0) % Lymph # (1.2-5.4) K/mm3 [place] # (0.0-0.8) K/mm3 Seg Neutrophils % (40.0-70.0) % Seg Neutrophils # (1.8-7.7) K/mm3 Potassium 3.4 L D (3.6-5.0) mmol/L BUN 67 H (9-20) mg/dL Creatinine 3.6 H (0.8-1.5) mg/dL Glucose 145 H (75-100) mg/dL POC Glucose (70-105) Calcium 7.9 L (8.4-10.2) mg/dL Phosphorus 4.60 H (2.5-4.5) mg/dL
--- NOTE | 2018-06-05 11:49 | Progress Note ---
Assessment and Plan Pt status quo. no specific compl. Davol drain - 250 cc/ 24 hrs Abd exam - status quo. non tender Abd series - ileus pattern still present. large bowel well collapsed surgically stable will await another couple of days before repeating CT with po contrast as pt may not yet be able to tolerate Selected Entries 06/05/18 06/05/18 06/05/18 05:20 08:45 10:00 Temperature 97.9 F Pulse Rate 96 H Respiratory 18 Rate Blood Pressure 168/103 Laboratory Tests 06/02/18 06/04/18 06/05/18 Unknown 20:00 07:00 WBC 20.8 H 19.3 H Hgb 7.7 L 8.8 L 8.3 L Hct 23.0 L 27.3 L 25.6 L Objective Vital Signs - 12hr 06/05/18 06/05/18 06/05/18 00:47 01:07 01:47 Temperature 98.9 F Pulse Rate 103 H 78 Respiratory 32 H 20 Rate Blood Pressure Blood Pressure 164/95 [Right] O2 Sat by Pulse 98 92 97 Oximetry 06/05/18 06/05/18 06/05/18 05:20 08:45 10:00 Temperature 98.2 F 97.9 F Pulse Rate 85 83 96 H Respiratory 18 22 Rate Blood Pressure 168/103 Blood Pressure 182/102 168/103 [Right] O2 Sat by Pulse 92 943 H Oximetry - Labs 06/05/18 07:00 06/05/18 07:00 Diabetes panel 06/05/18 Range/Units 07:00 Sodium 140 (137-145) mmol/L Potassium 3.4 L D (3.6-5.0) mmol/L Chloride 104.8 (98-107) mmol/L Carbon Dioxide 22 (22-30) mmol/L BUN 67 H (9-20) mg/dL Creatinine 3.6 H (0.8-1.5) mg/dL Glucose 145 H (75-100) mg/dL Calcium 7.9 L (8.4-10.2) mg/dL Calcium panel 06/05/18 Range/Units 07:00 Calcium 7.9 L (8.4-10.2) mg/dL Phosphorus 4.60 H (2.5-4.5) mg/dL Pituitary panel 06/05/18 Range/Units 07:00 Sodium 140 (137-145) mmol/L Potassium 3.4 L D (3.6-5.0) mmol/L Chloride 104.8 (98-107) mmol/L Carbon Dioxide 22 (22-30) mmol/L BUN 67 H (9-20) mg/dL Creatinine 3.6 H (0.8-1.5) mg/dL Glucose 145 H (75-100) mg/dL Calcium 7.9 L (8.4-10.2) mg/dL Adrenal panel 06/05/18 Range/Units 07:00 Sodium 140 (137-145) mmol/L Potassium 3.4 L D (3.6-5.0) mmol/L Chloride 104.8 (98-107) mmol/L Carbon Dioxide 22 (22-30) mmol/L BUN 67 H (9-20) mg/dL Creatinine 3.6 H (0.8-1.5) mg/dL Glucose 145 H (75-100) mg/dL Calcium 7.9 L (8.4-10.2) mg/dL
[2018-06-05] MEDS: FERROUS SULFATE PO SCH (12:10)
[2018-06-05] MEDS: FOLVITE PO SCH (12:10)
[2018-06-05] MEDS ORDERED: TPN ADULT 2,016 ML IV SCH (20:00)
[2018-06-06] MEDS: FLAGYL 500 MG/100 ML 500 MG/100 ML BAG IV SCH ×3 (06:54→21:36)
[2018-06-06] MEDS: FERROUS SULFATE PO SCH ×3 (06:54→21:36)
[2018-06-06] MEDS: APRESOLINE PO SCH ×3 (06:55→21:37)
[2018-06-06] MEDS: HumuLIN R SUB-Q SCH ×5 (06:59→18:20)
[2018-06-06 07:38] LABS: Basophils # (Auto) 0.1 K/mm3 (0.0-0.1); Basophils % (Auto) 0.8 % (0.0-1.8); Eosinophils % (Auto) 0.3 % (0.0-4.3); Hematocrit 25.2 % (35.5-45.6); Hemoglobin 8.1 gm/dl (11.8-15.2); Lymphocytes # (Auto) 1.1 K/mm3 (1.2-5.4); Lymphocytes % (Auto) 6.5 % (13.4-35.0); Mean Corpuscular HGB Conc 32 % (32-34); Mean Corpuscular Hemoglobin 29 pg (28-32); Mean Corpuscular Volume 89 fl (84-94); Monocytes # (Auto) 1.2 K/mm3 (0.0-0.8); Monocytes % (Auto) 7.1 % (0.0-7.3); Platelet Count 526 K/mm3 (140-440); Red Blood Count 2.84 M/mm3 (3.65-5.03); Red Cell Distribution Width 16.4 % (13.2-15.2)
[2018-06-06 08:02] LABS: Calcium 8.1 mg/dL (8.4-10.2)
--- NOTE | 2018-06-06 09:12 | Progress Note ---
Assessment and Plan 1. Acute kidney injury: Recurrent Acute kidney injury. Initial MARYLOU in the setting of bilateral hydronephrosis secondary to pelvic mass , now s/p bilateral nephrostomy. Patient required urgent hemodialysis due to worsening renal function and persistent hyperkalemia. Last dialyzed 06/02/81. Creatinine leveled off. Renal prognosis is guarded. 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 On PPN / TPN. IV fluids was stopped. 2. Electrolytes: Hyponatremia, improved. Hypokalemia, replete K / adjust K in TPN. 3. Bowel obstruction: S/p ostomy. 4. Bilateral hydronephrosis: S/p bilateral nephrostomy. S/p Cysto and drainage of abscess. 5. Respiratory failure: S/p extubated. 6. Hypertension: Additional Clonidine patch was stopped by Pharmacy without informing me. Unable to give oral meds since patient is NPO. 7. Anemia. 8. 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 Subjective Date of service: 06/06/18 Principal diagnosis: sq ca - pelvic mass Interval history: Patient was seen and examined at the bedside. Objective - Vital Signs Vital signs: Vital Signs - 12hr 06/05/18 06/05/18 06/05/18 22:00 23:24 23:30 Temperature 97.4 F L Pulse Rate 102 H 98 H Respiratory 18 22 25 H Rate Blood Pressure 139/91 O2 Sat by Pulse 96 100 98 Oximetry 06/06/18 06/06/18 04:17 08:58 Temperature 97.3 F L 97.7 F Pulse Rate 102 H 87 Respiratory 18 22 Rate Blood Pressure 152/99 170/102 O2 Sat by Pulse 100 100 Oximetry - General Appearance General appearance: well-developed, appears stated age, other (not in distress) EENT: ATNC, PERRL, mucous membranes dry, hearing intact Neck: supple Respiratory: Present: Clear to Ascultation Cardiology: regular, S1S2, no murmurs Gastrointestinal: normoactive bowel sounds, no tenderness, distended, other ( bilateral nephrostomy, drain tube and ostomy noted) Integumentary: no rash, warm and dry Neurologic: no focal deficit, no asterixis Musculoskeletal: other (no edema, right groin dialysis catheter) - Lab 06/06/18 07:14 06/06/18 07:14 Most recent lab results Calcium 8.1 mg/dL (8.4-10.2) L 06/06/18 07:14 Phosphorus 4.60 mg/dL (2.5-4.5) H 06/05/18 07:00 Magnesium 1.90 mg/dL (1.7-2.3) 06/06/18 07:14 Urine Creatinine 66.0 mg/dL (0.1-20.0) H 05/13/18 19:39 Urine Sodium 60 mmol/L 05/13/18 19:39 Urine Total Protein 24 mg/dL (5-11.8) H 05/13/18 19:39
--- NOTE | 2018-06-06 10:02 | Progress Note ---
Assessment and Plan Pt feeling well. called by RN around 1 am last night that drain was noted to be pulled by bedside. Abd non tender. liq stool noted in bag. Drain had been draining around 150 cc cl yellow drainage per day will consult IR pt will need to be placed on CT to see if fluid collection is re-accumulating in pelvis. If so, would need CT guided drain placement surgically stable discussed with Dr. Jaquez (IR) Objective Vital Signs - 12hr 06/05/18 06/05/18 06/05/18 22:00 23:24 23:30 Temperature 97.4 F L Pulse Rate 102 H 98 H Respiratory 18 22 25 H Rate Blood Pressure 139/91 O2 Sat by Pulse 96 100 98 Oximetry 06/06/18 06/06/18 04:17 08:58 Temperature 97.3 F L 97.7 F Pulse Rate 102 H 87 Respiratory 18 22 Rate Blood Pressure 152/99 170/102 O2 Sat by Pulse 100 100 Oximetry - Labs 06/06/18 07:14 06/06/18 07:14 Diabetes panel 06/06/18 Range/Units 07:14 Sodium 145 (137-145) mmol/L Potassium 3.6 (3.6-5.0) mmol/L Chloride 109.1 H (98-107) mmol/L Carbon Dioxide 21 L (22-30) mmol/L BUN 76 H (9-20) mg/dL Creatinine 3.5 H (0.8-1.5) mg/dL Glucose 111 H (75-100) mg/dL Calcium 8.1 L (8.4-10.2) mg/dL Calcium panel 06/06/18 Range/Units 07:14 Calcium 8.1 L (8.4-10.2) mg/dL Pituitary panel 06/06/18 Range/Units 07:14 Sodium 145 (137-145) mmol/L Potassium 3.6 (3.6-5.0) mmol/L Chloride 109.1 H (98-107) mmol/L Carbon Dioxide 21 L (22-30) mmol/L BUN 76 H (9-20) mg/dL Creatinine 3.5 H (0.8-1.5) mg/dL Glucose 111 H (75-100) mg/dL Calcium 8.1 L (8.4-10.2) mg/dL Adrenal panel 06/06/18 Range/Units 07:14 Sodium 145 (137-145) mmol/L Potassium 3.6 (3.6-5.0) mmol/L Chloride 109.1 H (98-107) mmol/L Carbon Dioxide 21 L (22-30) mmol/L BUN 76 H (9-20) mg/dL Creatinine 3.5 H (0.8-1.5) mg/dL Glucose 111 H (75-100) mg/dL Calcium 8.1 L (8.4-10.2) mg/dL
[2018-06-06] MEDS: HEPARIN SUB-Q SCH ×2 (10:57→21:35)
[2018-06-06] MEDS: PEPCID IV SCH (10:59)
[2018-06-06] MEDS: MAXIPIME/NS 2 GM/100 ML 2 GM/100 ML BAG IV SCH (11:02)
--- NOTE | 2018-06-06 11:36 | Progress Note ---
Assessment and Plan Assessment and plan: Abdominal distention/ascites Paracentesis completed on 06/03 Check peritoneal cell count with differential, cytology, total protein, fluid culture, albumin, amylase, LDH and glucose Abdominal series in a.m. to rule out persistent ileus. Bilateral pneumonia (possibly aspiration) Monitor respiratory status Continue Nebs PRN Continue antibiotic Sepsis syndrome (wbc worsen, remains afebrile) Continue cefepime, metrodazole Acute kidney injury (obstructive uropathy vs contrast nephropathy) HD per nephrology Continue to monitor BMP and kidney fuction Had bilateral nephrostomy tubes placed 05/14/[address] Freeman. 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 Continue pain control PRN Acute deep venous thrombosis Anticoagulation on hold because of anemia, bilateral nephrostomy tubes and abdominal issues Moderate to severe protein calorie malnutrition Continue tube feeding Hypokalemia Potassium and mag replacement as needed Anemia (likey due to CKD, post op blood loss) Continue pain control PRN Continue supportive care History Interval history: No new issues overnight. Hospitalist Physical - Constitutional Vitals: Temp Pulse Resp BP Pulse Ox 97.7 F 87 22 170/102 100 06/06/18 08:58 06/06/18 08:58 06/06/18 08:58 06/06/18 08:58 06/06/18 08:58 General appearance: Present: no acute distress - EENT Eyes: Present: PERRL, EOM intact ENT: hearing intact, clear oral mucosa, dentition normal - Neck Neck: Present: supple, normal ROM - Respiratory Respiratory effort: normal Respiratory: bilateral: CTA - Cardiovascular Rhythm: regular Heart Sounds: Present: S1 & S2. Absent: gallop, rub - Extremities Extremities: no ischemia, No edema, Full ROM - Abdominal General gastrointestinal: soft, non-tender, non-distended, normal bowel sounds - Integumentary Integumentary: Present: clear, warm, dry - Neurologic Neurologic: CNII-XII intact, moves all extremities Results - Labs CBC & Chem 7: 06/06/18 07:14 06/06/18 07:14 Labs: Laboratory Last Values WBC 16.5 K/mm3 (4.5-11.0) H 06/06/18 07:14 RBC 2.84 M/mm3 (3.65-5.03) L 06/06/18 07:14 Hgb 8.1 gm/dl (11.8-15.2) L 06/06/18 07:14 Hct 25.2 % (35.5-45.6) L 06/06/18 07:14 MCV 89 fl (84-94) 06/06/18 07:14 MCH 29 pg (28-32) 06/06/18 07:14 MCHC 32 % (32-34) 06/06/18 07:14 RDW 16.4 % (13.2-15.2) H 06/06/18 07:14 Plt Count 526 K/mm3 (140-440) H 06/06/18 07:14 Lymph % (Auto) 6.5 % (13.4-35.0) L 06/06/18 07:14 Long % (Auto) 7.1 % (0.0-7.3) 06/06/18 07:14 Eos % (Auto) 0.3 % (0.0-4.3) 06/06/18 07:14 Baso % (Auto) 0.8 % (0.0-1.8) 06/06/18 07:14 Lymph # 1.1 K/mm3 (1.2-5.4) L 06/06/18 07:14 Long # 1.2 K/mm3 (0.0-0.8) H 06/06/18 07:14 Eos # 0.0 K/mm3 (0.0-0.4) 06/06/18 07:14 Baso # 0.1 K/mm3 (0.0-0.1) 06/06/18 07:14 Add Manual Diff Complete 05/31/18 04:50 Total Counted 100 05/31/18 04:50 Seg Neutrophils % 85.3 % (40.0-70.0) H 06/06/18 07:14 Seg Neuts % (Manual) 91.0 % (40.0-70.0) H 05/31/18 04:50 Band Neutrophils % 2.0 % 05/31/18 04:50 Lymphocytes % (Manual) 2.0 % (13.4-35.0) L 05/31/18 04:50 Reactive Lymphs % (Man) 0 % 05/31/18 04:50 Monocytes % (Manual) 2.0 % (0.0-7.3) 05/31/18 04:50 Eosinophils % (Manual) 1.0 % (0.0-4.3) 05/31/18 04:50 Basophils % (Manual) 0 % (0.0-1.8) 05/31/18 04:50 Metamyelocytes % 1.0 % 05/31/18 04:50 Myelocytes % 1.0 % 05/31/18 04:50 Promyelocytes % 0 % 05/31/18 04:50 Blast Cells % 0 % 05/31/18 04:50 Nucleated RBC % Not Reportable 05/31/18 04:50 Seg Neutrophils # 14.1 K/mm3 (1.8-7.7) H 06/06/18 07:14 Seg Neutrophils # Man 17.0 K/mm3 (1.8-7.7) H 05/31/18 04:50 Band Neutrophils # 0.4 K/mm3 05/31/18 04:50 Lymphocytes # (Manual) 0.4 K/mm3 (1.2-5.4) L 05/31/18 04:50 Abs React Lymphs (Man) 0.0 K/mm3 05/31/18 04:50 Monocytes # (Manual) 0.4 K/mm3 (0.0-0.8) 05/31/18 04:50 Eosinophils # (Manual) 0.2 K/mm3 (0.0-0.4) 05/31/18 04:50 Basophils # (Manual) 0.0 K/mm3 (0.0-0.1) 05/31/18 04:50 Metamyelocytes # 0.2 K/mm3 05/31/18 04:50 Myelocytes # 0.2 K/mm3 05/31/18 04:50 Promyelocytes # 0.0 K/mm3 05/31/18 04:50 Blast Cells # 0.0 K/mm3 05/31/18 04:50 WBC Morphology Not Reportable 05/31/18 04:50 Hypersegmented Neuts Not Reportable 05/31/18 04:50 Hyposegmented Neuts Not Reportable 05/31/18 04:50 Hypogranular Neuts Not Reportable 05/31/18 04:50 Smudge Cells Not Reportable 05/31/18 04:50 Toxic Granulation Not Reportable 05/31/18 04:50 Toxic Vacuolation Not Reportable 05/31/18 04:50 Dohle Bodies Not Reportable 05/31/18 04:50 Pelger-Huet Anomaly Not Reportable 05/31/18 04:50 Mahesh Rods Not Reportable 05/31/18 04:50 Platelet Estimate Appears normal 05/31/18 04:50 Clumped Platelets Not Reportable 05/31/18 04:50 Plt Clumps, EDTA Not Reportable 05/31/18 04:50 Large Platelets Not Reportable 05/31/18 04:50 Giant Platelets Not Reportable 05/31/18 04:50 Platelet Satelliting Not Reportable 05/31/18 04:50 Plt Morphology Comment Not Reportable 05/31/18 04:50 RBC Morphology Not Reportable 05/31/18 04:50 Dimorphic RBCs Not Reportable 05/31/18 04:50 Polychromasia Not Reportable 05/31/18 04:50 Hypochromasia Few 05/31/18 04:50 Poikilocytosis Not Reportable 05/31/18 04:50 Anisocytosis 1+ 05/31/18 04:50 Microcytosis Few 05/31/18 04:50 Macrocytosis Not Reportable 05/31/18 04:50 Spherocytes Not Reportable 05/31/18 04:50 Pappenheimer Bodies Not Reportable 05/31/18 04:50 Sickle Cells Not Reportable 05/31/18 04:50 Target Cells Rare 05/31/18 04:50 Tear Drop Cells Not Reportable 05/31/18 04:50 Ovalocytes 1+ 05/31/18 04:50 Helmet Cells Not Reportable 05/31/18 04:50 [place] Bodies Not Reportable 05/31/18 04:50 [place] Rings Not Reportable 05/31/18 04:50 Yeso Cells Not Reportable 05/31/18 04:50 Bite Cells Not Reportable 05/31/18 04:50 Crenated Cell Not Reportable 05/31/18 04:50 Elliptocytes Not Reportable 05/31/18 04:50 Acanthocytes (Spur) Not Reportable 05/31/18 04:50 Rouleaux Not Reportable 05/31/18 04:50 Hemoglobin C Crystals Not Reportable 05/31/18 04:50 Schistocytes Not Reportable 05/31/18 04:50 Malaria parasites Not Reportable 05/31/18 04:50 Mk Bodies Not Reportable 05/31/18 04:50 Hem Pathologist Commnt No 05/31/18 04:50 PT 17.1 Sec. (12.2-14.9) H 06/03/18 09:18 INR 1.34 (0.87-1.13) H 06/03/18 09:18 APTT 40.0 Sec. (24.2-36.6) H 05/23/18 09:03 POC ABG pH 7.362 (7.35-7.45) 05/31/18 09:58 POC ABG pCO2 36.4 (35-45) 05/31/18 09:58 POC ABG pO2 101 (80-105) 05/31/18 09:58 POC ABG HCO3 20.7 05/31/18 09:58 POC ABG Total CO2 22 05/31/18 09:58 POC ABG O2 Sat 98 05/31/18 09:58 POC ABG Base Excess -5 05/31/18 09:58 FiO2 40 % 05/31/18 09:58 Sodium 145 mmol/L (137-145) 06/06/18 07:14 Potassium 3.6 mmol/L (3.6-5.0) 06/06/18 07:14 Chloride 109.1 mmol/L (98-107) H 06/06/18 07:14 Carbon Dioxide 21 mmol/L (22-30) L 06/06/18 07:14 Anion Gap 19 mmol/L 06/06/18 07:14 BUN 76 mg/dL (9-20) H 06/06/18 07:14 Creatinine 3.5 mg/dL (0.8-1.5) H 06/06/18 07:14 Estimated GFR 22 ml/min 06/06/18 07:14 BUN/Creatinine Ratio 22 % 06/06/18 07:14 Glucose 111 mg/dL (75-100) H 06/06/18 07:14 POC Glucose 131 (70-105) H 06/06/18 06:39 Hemoglobin A1c 5.7 % (4-6) 05/14/18 05:05 Lactic Acid 3.80 mmol/L (0.7-2.0) H* 05/26/18 11:00 Calcium 8.1 mg/dL (8.4-10.2) L 06/06/18 07:14 Phosphorus 4.60 mg/dL (2.5-4.5) H 06/05/18 07:00 Magnesium 1.90 mg/dL (1.7-2.3) 06/06/18 07:14 Iron 24 ug/dL (49-181) L 05/16/18 07:02 TIBC 160 mcg/dL (250-450) L 05/16/18 07:02 Ferritin 325.8 ng/mL (13.0-400.0) 05/16/18 07:02 Total Bilirubin 0.50 mg/dL (0.1-1.2) 06/02/18 Unknown AST 46 units/L (5-40) H 06/02/18 Unknown ALT 66 units/L (7-56) H 06/02/18 Unknown Alkaline Phosphatase 119 units/L (35-129) 06/02/18 Unknown Total Creatine Kinase 156 units/L (55-170) 05/25/18 22:46 CK-MB (CK-2) 2.3 ng/mL (0.0-4.0) 05/25/18 22:46 CK-MB (CK-2) Rel Index 1.4 (0-4) 05/25/18 22:46 C-Reactive Protein 11.10 mg/dL (0.00-1.30) H 06/03/18 09:18 Total Protein 5.7 g/dL (6.3-8.2) L 06/02/18 Unknown Albumin 1.5 g/dL (3.9-5) L 06/02/18 Unknown Albumin/Globulin Ratio 0.4 % 06/02/18 Unknown Triglycerides 112 mg/dL (2-149) 06/03/18 03:31 Prostate Specific Ag 0.96 ng/mL (0.00-4.00) 05/14/18 13:29 Vitamin B12 359.2 pg/mL (211-911) 05/16/18 07:02 Folate 5.39 ng/mL (7.3-26.0) L 05/16/18 07:02 TSH 3.180 mlU/mL (0.270-4.200) 05/14/18 05:05 PTH Intact 65.37 pg/mL (15-65) H 05/14/18 05:05 Urine Color Maria Del Rosario (Yellow) 05/27/18 Unknown Urine Turbidity Cloudy (Clear) 05/27/18 Unknown Urine pH 5.0 (5.0-7.0) 05/27/18 Unknown Ur Specific Denio 1.026 (1.003-1.030) 05/27/18 Unknown Urine Protein 100 mg/dl mg/dL (Negative) 05/27/18 Unknown Urine Glucose (UA) 50 mg/dL (Negative) 05/27/18 Unknown Urine Ketones Neg mg/dL (Negative) 05/27/18 Unknown Urine Blood Lg (Negative) 05/27/18 Unknown Urine Nitrite Neg (Negative) 05/27/18 Unknown Urine Bilirubin Neg (Negative) 05/27/18 Unknown Urine Urobilinogen < 2.0 mg/dL (<2.0) 05/27/18 Unknown Ur Leukocyte Esterase Mod (Negative) 05/27/18 Unknown Urine WBC (Auto) 120.0 /HPF (0.0-6.0) H 05/27/18 Unknown Urine RBC (Auto) 35.0 /HPF (0.0-6.0) 05/27/18 Unknown U Epithel Cells (Auto) 3.0 /HPF (0-13.0) 05/27/18 Unknown Urine Bacteria (Auto) 1+ /HPF (Negative) 05/27/18 Unknown Urine WBC Clumps Few /HPF 05/13/18 19:39 Urine Mucus Few /HPF 05/27/18 Unknown Urine Yeast (Budding) 2+ /HPF 05/21/18 15:30 Urine Creatinine 66.0 mg/dL (0.1-20.0) H 05/13/18 19:39 Urine Sodium 60 mmol/L 05/13/18 19:39 Urine Potassium 8.69 mmol/L 05/13/18 19:39 Urine Chloride 27.8 mmolL (110-250) L 05/13/18 19:39 Urine Total Protein 24 mg/dL (5-11.8) H 05/13/18 19:39 Fluid Type Ascitic 06/03/18 Unknown Fluid Color Yellow 06/03/18 Unknown Fluid Appearance Cloudy 06/03/18 Unknown Fluid WBC 67531 /mm3 06/03/18 Unknown Fluid RBC 9 /mm3 06/03/18 Unknown Fluid Seg Neutrophils 98.0 % 06/03/18 Unknown Fluid Lymphocytes 2.0 % 06/03/18 Unknown Fluid Reactive Lymphs 0 % 06/03/18 Unknown Fluid Monocytes 0 % 06/03/18 Unknown Fluid Eosinophils 0 % 06/03/18 Unknown Fluid Basophils 0 % 06/03/18 Unknown Vancomycin Trough 25.1 ug/mL (5.0-20.0) H 05/25/18 22:46 Random Vancomycin 34.3 ug/mL (0-40.0) 05/26/18 11:01 Urine Opiates Screen Presumptive negative 05/13/18 19:39 Urine Methadone Screen Presumptive negative 05/13/18 19:39 Ur Barbiturates Screen Presumptive negative 05/13/18 19:39 Ur Phencyclidine Scrn Presumptive negative 05/13/18 19:39 Ur Amphetamines Screen Presumptive negative 05/13/18 19:39 U Benzodiazepines Scrn Presumptive negative 05/13/18 19:39 Urine Cocaine Screen Presumptive negative 05/13/18 19:39 U Marijuana (THC) Screen Presumptive negative 05/13/18 19:39 Drugs of Abuse Note Disclamer 05/13/18 19:39 ZEUS Screen Negative (Negative) 05/14/18 05:05 Proteinase 3 (PR3) Ab <1.0 AI (<1.0) 05/14/18 05:05 Myeloperoxidase Ab <1.0 AI (<1.0) 05/14/18 05:05 Complement C3 147 mg/dL (82-185) 05/14/18 05:05 Complement C4 45 mg/dL (15-53) 05/14/18 05:05 Hepatitis A IgM Ab Nonreactive (NonReactive) 05/27/18 13:41 Hep Bs Antigen Non-reactive (Negative) 05/27/18 13:41 Hep B Core IgM Ab Non-reactive (NonReactive) 05/27/18 13:41 Hepatitis C Antibody Non-reactive (NonReactive) 05/27/18 13:41 Miscellaneous Test Flexitest 1 H 05/27/18 13:02 Blood Type O POSITIVE 06/02/18 13:05 Antibody Screen Negative 06/02/18 13:05 Crossmatch See Detail 05/22/18 11:23
--- NOTE | 2018-06-06 11:37 | Progress Note ---
Assessment and Plan Abdominal distention/ascites Paracentesis completed on 06/03 Check peritoneal cell count with differential, cytology, total protein, fluid culture, albumin, amylase, LDH and glucose Abdominal series in a.m. to rule out persistent ileus. Bilateral pneumonia (possibly aspiration) Monitor respiratory status Continue Nebs PRN Continue antibiotic Sepsis syndrome (wbc worsen, remains afebrile) Continue cefepime, metrodazole Acute kidney injury (obstructive uropathy vs contrast nephropathy) HD per nephrology Continue to monitor BMP and kidney fuction Had bilateral nephrostomy tubes placed 05/14/[address] Freeman. 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 Continue pain control PRN Acute deep venous thrombosis Anticoagulation on hold because of anemia, bilateral nephrostomy tubes and abdominal issues Moderate to severe protein calorie malnutrition Continue tube feeding Hypokalemia Potassium and mag replacement as needed Anemia (likey due to CKD, post op blood loss) Continue pain control PRN Continue supportive care Subjective Date of service: 06/05/18 Principal diagnosis: sq ca - pelvic mass Interval history: No new issues overnight. Objective - Constitutional Vitals: Vital Signs - 12hr 06/06/18 06/06/18 04:17 08:58 Temperature 97.3 F L 97.7 F Pulse Rate 102 H 87 Respiratory 18 22 Rate Blood Pressure 152/99 170/102 O2 Sat by Pulse 100 100 Oximetry General appearance: Present: no acute distress, well-nourished - EENT Eyes: PERRL, EOM intact ENT: hearing intact, clear oral mucosa Ears: bilateral: normal - Neck Neck: supple, normal ROM - Respiratory Respiratory effort: normal Respiratory: bilateral: CTA - Breasts Breasts: normal - Cardiovascular Rhythm: regular Heart Sounds: Present: S1 & S2. Absent: gallop, rub Extremities: pulses intact, No edema, normal color, Full ROM - Gastrointestinal General gastrointestinal: Present: soft, non-tender, non-distended, normal bowel sounds - Genitourinary Male genitourinary: normal - Integumentary Integumentary: clear, warm, dry - Musculoskeletal Musculoskeletal: 1, strength equal bilaterally - Neurologic Neurologic: moves all extremities - Psychiatric Psychiatric: memory intact, appropriate mood/affect, intact judgment & insight - Labs CBC & Chem 7: 06/06/18 07:14 06/06/18 07:14 Labs: Abnormal lab results 06/05/18 06/05/18 06/06/18 Range/Units 12:10 16:01 06:39 WBC (4.5-11.0) K/mm3 RBC (3.65-5.03) M/mm3 Hgb (11.8-15.2) gm/dl Hct (35.5-45.6) % RDW (13.2-15.2) % Plt Count (140-440) K/mm3 Lymph % (Auto) (13.4-35.0) % Lymph # (1.2-5.4) K/mm3 [place] # (0.0-0.8) K/mm3 Seg Neutrophils % (40.0-70.0) % Seg Neutrophils # (1.8-7.7) K/mm3 Chloride (98-107) mmol/L Carbon Dioxide (22-30) mmol/L BUN (9-20) mg/dL Creatinine (0.8-1.5) mg/dL Glucose (75-100) mg/dL POC Glucose 150 H 129 H 131 H (70-105) Calcium (8.4-10.2) mg/dL 06/06/18 06/06/18 Range/Units 07:14 07:14 WBC 16.5 H (4.5-11.0) K/mm3 RBC 2.84 L (3.65-5.03) M/mm3 Hgb 8.1 L (11.8-15.2) gm/dl Hct 25.2 L (35.5-45.6) % RDW 16.4 H (13.2-15.2) % Plt Count 526 H (140-440) K/mm3 Lymph % (Auto) 6.5 L (13.4-35.0) % Lymph # 1.1 L (1.2-5.4) K/mm3 [place] # 1.2 H (0.0-0.8) K/mm3 Seg Neutrophils % 85.3 H (40.0-70.0) % Seg Neutrophils # 14.1 H (1.8-7.7) K/mm3 Chloride 109.1 H (98-107) mmol/L Carbon Dioxide 21 L (22-30) mmol/L BUN 76 H (9-20) mg/dL Creatinine 3.5 H (0.8-1.5) mg/dL Glucose 111 H (75-100) mg/dL POC Glucose (70-105) Calcium 8.1 L (8.4-10.2) mg/dL
[2018-06-06] MEDS: FOLVITE PO SCH (11:54)
--- NOTE | 2018-06-06 12:06 | Progress Note ---
Assessment and Plan Assessment: 1) Sepsis: Improved. Leukocytes - 16.5. Etiology unclear - most likely necrotic malignancy ? abscess +/- UTI +/- LLL pneumonia -Blood cx 05/15 neg, 05/20 neg, 05/26 neg -CRP=40 -->11 -Procal=79 - 2) Complicated UTI: repeat UA 05/21 28 wbc, trace LE. 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 Enlarged pelvic lymph nodes, bilateral hydronephrosis. -S/p 05/14/18 left and right nephrostomy tube placements and mass biopsy -S/p 05/18/2018 cystoscopy with right great toe pyelogram found to have a bladder mass and prostate mass -S/p 05/26/18 diverting colostomy. 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 Similar to prior. Differential diagnosis includes low-grade incomplete obstruction, ileus, and enterocolitis. 4) LLL pneumonia, sputum cx + Yeast 5) MARYLOU 6) Weight loss Plan: -f/u on rpt CT per surgery -continue cefepime, D11 - flagyl D11 -upon discharge will do 2-3 weeks IV abx [facility] M: [phone] O:[phone] Subjective Date of service: 06/06/18 Principal diagnosis: sq ca - pelvic mass Interval history: Patient laying in bed. Patient stated that he was doing ok Microbiology: Blood cultures: 05/15 neg 05/20 neg 05/26 ngtd Urine cultures: 05/21 neg 05/27 neg Sputum: 05/27 yeast OR cultures: 05/26 Bacteroides fragilis Current Antimicrobials: 05/27 cefepime, flagyl Previous Antimicrobials: Zosyn 05/19 zyvox Levaquin 05/26 Objective - Exam Narrative Exam: General appearance: Alert in NAD, nonconversant Eyes: anicteric sclerae, moist conjunctivae; no lid-lag; PERRLA HENT: Atraumatic; oropharynx +EET +NGT. Normal external ears. +temporal wasting Neck: Trachea midline; supple, no thyromegaly or lymphadenopathy Lungs: amy rhonchi CV: RRR, no murmurs Abdomen: Soft, +diverting colostomy +multiple drains and amy PC nephros Extremities: No peripheral edema or extremity lymphadenopathy Skin: Normal temperature, turgor and texture; no rash, ulcers or subcutaneous nodules Psych: sedated. Neuro: sedated Lines: right fem line, right IJ - Constitutional Vitals: Vital Signs Temp Pulse Resp BP Pulse Ox 97.7 F 87 22 170/102 100 06/06/18 08:58 06/06/18 08:58 06/06/18 08:58 06/06/18 08:58 06/06/18 08:58 Temperature -Last 24 Hours Temperature 97.7 F Temperature 97.3 F Temperature 97.4 F Temperature 97.4 F Temperature 98.0 F - Labs CBC & Chem 7: 06/06/18 07:14 06/06/18 07:14 Labs: Abnormal lab results 06/05/18 06/05/18 06/06/18 Range/Units 12:10 16:01 06:39 WBC (4.5-11.0) K/mm3 RBC (3.65-5.03) M/mm3 Hgb (11.8-15.2) gm/dl Hct (35.5-45.6) % RDW (13.2-15.2) % Plt Count (140-440) K/mm3 Lymph % (Auto) (13.4-35.0) % Lymph # (1.2-5.4) K/mm3 Mcdonald # (0.0-0.8) K/mm3 Seg Neutrophils % (40.0-70.0) % Seg Neutrophils # (1.8-7.7) K/mm3 Chloride (98-107) mmol/L Carbon Dioxide (22-30) mmol/L BUN (9-20) mg/dL Creatinine (0.8-1.5) mg/dL Glucose (75-100) mg/dL POC Glucose 150 H 129 H 131 H (70-105) Calcium (8.4-10.2) mg/dL 06/06/18 06/06/18 Range/Units 07:14 07:14 WBC 16.5 H (4.5-11.0) K/mm3 RBC 2.84 L (3.65-5.03) M/mm3 Hgb 8.1 L (11.8-15.2) gm/dl Hct 25.2 L (35.5-45.6) % RDW 16.4 H (13.2-15.2) % Plt Count 526 H (140-440) K/mm3 Lymph % (Auto) 6.5 L (13.4-35.0) % Lymph # 1.1 L (1.2-5.4) K/mm3 [place]onald # 1.2 H (0.0-0.8) K/mm3 Seg Neutrophils % 85.3 H (40.0-70.0) % Seg Neutrophils # 14.1 H (1.8-7.7) K/mm3 Chloride 109.1 H (98-107) mmol/L Carbon Dioxide 21 L (22-30) mmol/L BUN 76 H (9-20) mg/dL Creatinine 3.5 H (0.8-1.5) mg/dL Glucose 111 H (75-100) mg/dL POC Glucose (70-105) Calcium 8.1 L (8.4-10.2) mg/dL
--- NOTE | 2018-06-06 13:49 | Progress Note ---
Assessment and Plan Acute hypoxemic respiratory failure, possibly secondary to 2. Bilateral pneumonia, possibly aspiration. Sepsis syndrome. 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 Acute deep venous thrombosis. Hypertensive urgency. Hyperkalemia, now resolved. Moderate to severe protein calorie malnutrition Hypernatremia. Hypochloremia. Anemia, normocytic. (ABLA) - continue supplemental oxygen to keep sats > 90% - continue bronchodilators with pulmonary hygiene per RT - HD/UF for toxin and volume clearance - continue anti-infective's per ID recs - continue TPN for now (enteral nutrition once cleared by surgery) - Malignancy per heme-oncologist - continue mobility protocol for pressure ulcer prophylaxis - s/p surgery 05/26 (had ex-lap; matted abdominal organs, pus) - s/p bilateral nephrostomy tubes placed 05/14/[address] Freeman. - continue other care per attending / other consultants - consider paracentesis - continue other care per attending / other consultants ... re-evaluate in am & prn Subjective Date of service: 06/06/18 Principal diagnosis: Acute Hypoxemic Resp Failure; Sepsis Syndrome; Acute VTE; Prostate Cancer Interval history: Patient is seen today for: Acute Hypoxemic Resp Failure; Sepsis Syndrome; Acute VTE; Prostate Cancer Seen and examined at bedside; 24hour events reviewed; nursing and respiratory care staff consulted; no adverse overnight events reported to me; resting peacefully; no gross bleeding; remains on TPN; denies acute chest pains or palpitations Objective Vital Signs - 12hr 06/06/18 06/06/18 06/06/18 04:17 08:00 08:58 Temperature 97.3 F L 97.7 F Pulse Rate 102 H 94 H 87 Respiratory 18 22 Rate Blood Pressure 152/99 170/102 O2 Sat by Pulse 100 100 Oximetry Constitutional: no acute distress, alert, other (chronically ill looking middle aged AAM, normocephalic and atraumatic, ) Eyes: non-icteric ENT: oropharynx moist Neck: supple, no lymphadenopathy, no JVD, other (no thyromegaly) Effort: mildly labored Ascultation: Bilateral: diminished breath sounds, rhonchi (scant in bases) Percussion: Bilateral: not dull Cardiovascular: regular rate and rhythm, other (No R/M) Gastrointestinal: hypoactive bowel sounds, soft, tender (mild), other (Distended ; No palpable HSM, bilateral nephrostomy tubes,) Integumentary: other (femoral vascath) Extremities: no cyanosis, no edema, pulses normal, no ischemia or petechiae Neurologic: normal mental status, non-focal exam, pupils equal and round, other (weak) Psychiatric: mood appropriate, affect normal CBC and BMP: 06/07/18 05:45 06/08/18 05:24 ABG, PT/INR, D-dimer: ABG POC ABG pH 7.362 (7.35-7.45) 05/31/18 09:58 POC ABG pCO2 36.4 (35-45) 05/31/18 09:58 POC ABG pO2 101 (80-105) 05/31/18 09:58 POC ABG HCO3 20.7 05/31/18 09:58 POC ABG Total CO2 22 05/31/18 09:58 POC ABG O2 Sat 98 05/31/18 09:58 PT/INR, D-dimer PT 17.1 Sec. (12.2-14.9) H 06/03/18 09:18 INR 1.34 (0.87-1.13) H 06/03/18 09:18 Abnormal lab findings: Abnormal Labs 05/13/18 05/13/18 05/13/18 04:27 04:27 19:39 WBC RBC 3.13 L Hgb 9.4 L Hct 26.8 L MCHC 35 H RDW Plt Count Lymph % (Auto) [place] % (Auto) 9.6 H Lymph # [place] # Seg Neutrophils % Seg Neuts % (Manual) Lymphocytes % (Manual) Seg Neutrophils # Seg Neutrophils # Man Lymphocytes # (Manual) PT INR APTT POC ABG pH POC ABG pCO2 POC ABG pO2 Sodium 132 L Potassium 5.5 H Chloride 94.1 L Carbon Dioxide 19 L BUN 72 H Creatinine 14.4 H Glucose POC Glucose Lactic Acid Calcium Phosphorus Magnesium Iron TIBC AST ALT Alkaline Phosphatase Total Creatine Kinase C-Reactive Protein Total Protein Albumin 2.8 L Folate PTH Intact Urine WBC (Auto) Urine Creatinine 66.0 H Urine Chloride 27.8 L Urine Total Protein 24 H Vancomycin Trough Miscellaneous Test Crossmatch 05/13/18 05/14/18 05/14/18 20:00 05:05 05:05 WBC RBC Hgb Hct MCHC RDW Plt Count Lymph % (Auto) [place] % (Auto) Lymph # [place] # Seg Neutrophils % Seg Neuts % (Manual) Lymphocytes % (Manual) Seg Neutrophils # Seg Neutrophils # Man Lymphocytes # (Manual) PT INR APTT POC ABG pH POC ABG pCO2 POC ABG pO2 Sodium 132 L 131 L Potassium 5.2 H 5.8 H Chloride 93.0 L 95.6 L Carbon Dioxide 19 L 20 L BUN 74 H 81 H Creatinine 15.0 H 16.6 H Glucose 134 H 127 H POC Glucose Lactic Acid Calcium 8.2 L 7.9 L Phosphorus 6.30 H Magnesium Iron TIBC AST ALT Alkaline Phosphatase Total Creatine Kinase 236 H C-Reactive Protein Total Protein Albumin Folate PTH Intact 65.37 H Urine WBC (Auto) Urine Creatinine Urine Chloride Urine Total Protein Vancomycin Trough Miscellaneous Test Crossmatch 05/14/18 05/14/18 05/14/18 09:28 10:56 13:29 WBC RBC Hgb Hct MCHC RDW Plt Count Lymph % (Auto) [place] % (Auto) Lymph # [place] # Seg Neutrophils % Seg Neuts % (Manual) Lymphocytes % (Manual) Seg Neutrophils # Seg Neutrophils # Man Lymphocytes # (Manual) PT INR APTT 38.2 H POC ABG pH POC ABG pCO2 POC ABG pO2 Sodium Potassium Chloride Carbon Dioxide BUN Creatinine Glucose POC Glucose 127 H 126 H Lactic Acid Calcium Phosphorus Magnesium Iron TIBC AST ALT Alkaline Phosphatase Total Creatine Kinase C-Reactive Protein Total Protein Albumin Folate PTH Intact Urine WBC (Auto) Urine Creatinine Urine Chloride Urine Total Protein Vancomycin Trough Miscellaneous Test Crossmatch 05/15/18 05/15/18 05/16/18 08:06 08:06 07:02 WBC RBC 2.84 L 2.74 L Hgb 8.5 L 8.5 L Hct 24.2 L 23.5 L MCHC 35 H 36 H RDW Plt Count Lymph % (Auto) [place] % (Auto) 10.4 H 11.0 H Lymph # 1.1 L [place] # 0.9 H Seg Neutrophils % 72.6 H Seg Neuts % (Manual) Lymphocytes % (Manual) Seg Neutrophils # Seg Neutrophils # Man Lymphocytes # (Manual) PT INR APTT POC ABG pH POC ABG pCO2 POC ABG pO2 Sodium Potassium Chloride Carbon Dioxide 19 L BUN 66 H Creatinine 12.0 H Glucose 115 H POC Glucose Lactic Acid Calcium 8.1 L Phosphorus Magnesium Iron TIBC AST ALT Alkaline Phosphatase Total Creatine Kinase C-Reactive Protein Total Protein Albumin Folate PTH Intact Urine WBC (Auto) Urine Creatinine Urine Chloride Urine Total Protein Vancomycin Trough Miscellaneous Test Crossmatch 05/16/18 05/16/18 05/17/18 07:02 07:02 05:08 WBC RBC 2.78 L Hgb 8.2 L Hct 23.9 L MCHC RDW Plt Count Lymph % (Auto) [place] % (Auto) 13.9 H Lymph # [place] # 0.9 H Seg Neutrophils % Seg Neuts % (Manual) Lymphocytes % (Manual) Seg Neutrophils # Seg Neutrophils # Man Lymphocytes # (Manual) PT INR APTT POC ABG pH POC ABG pCO2 POC ABG pO2 Sodium Potassium Chloride Carbon Dioxide BUN 28 H Creatinine 2.4 H D Glucose POC Glucose Lactic Acid Calcium 8.3 L Phosphorus Magnesium 1.50 L Iron 24 L TIBC 160 L AST ALT Alkaline Phosphatase Total Creatine Kinase C-Reactive Protein Total Protein Albumin Folate 5.39 L PTH Intact Urine WBC (Auto) Urine Creatinine Urine Chloride Urine Total Protein Vancomycin Trough Miscellaneous Test Crossmatch 05/17/18 05/18/18 05/18/18 05:08 05:57 05:57 WBC RBC 2.79 L Hgb 8.3 L Hct 24.0 L MCHC 35 H RDW Plt Count Lymph % (Auto) [place] % (Auto) 11.8 H Lymph # [place] # 0.9 H Seg Neutrophils % Seg Neuts % (Manual) Lymphocytes % (Manual) Seg Neutrophils # Seg Neutrophils # Man Lymphocytes # (Manual) PT INR APTT POC ABG pH POC ABG pCO2 POC ABG pO2 Sodium Potassium Chloride Carbon Dioxide BUN Creatinine Glucose POC Glucose Lactic Acid Calcium 7.7 L 8.0 L Phosphorus Magnesium 1.60 L Iron TIBC AST ALT Alkaline Phosphatase Total Creatine Kinase C-Reactive Protein Total Protein Albumin Folate PTH Intact Urine WBC (Auto) Urine Creatinine Urine Chloride Urine Total Protein Vancomycin Trough Miscellaneous Test Crossmatch 05/19/18 05/19/18 05/20/18 05:33 05:33 05:38 WBC RBC 2.95 L Hgb 8.8 L Hct 25.8 L MCHC RDW Plt Count Lymph % (Auto) 10.1 L [place] % (Auto) Lymph # 1.1 L [place] # Seg Neutrophils % 85.2 H Seg Neuts % (Manual) Lymphocytes % (Manual) Seg Neutrophils # 9.0 H Seg Neutrophils # Man Lymphocytes # (Manual) PT INR APTT POC ABG pH POC ABG pCO2 POC ABG pO2 Sodium 135 L Potassium Chloride Carbon Dioxide BUN Creatinine Glucose 132 H POC Glucose Lactic Acid Calcium 7.8 L 8.3 L Phosphorus Magnesium 1.40 L Iron TIBC AST ALT Alkaline Phosphatase Total Creatine Kinase C-Reactive Protein Total Protein Albumin Folate PTH Intact Urine WBC (Auto) Urine Creatinine Urine Chloride Urine Total Protein Vancomycin Trough Miscellaneous Test Crossmatch 05/21/18 05/21/18 05/22/18 04:46 15:30 06:49 WBC 20.0 H RBC 2.70 L Hgb 7.8 L Hct 23.3 L MCHC RDW Plt Count Lymph % (Auto) [place] % (Auto) Lymph # [place] # Seg Neutrophils % Seg Neuts % (Manual) 85.0 H Lymphocytes % (Manual) 4.0 L Seg Neutrophils # Seg Neutrophils # Man 17.0 H Lymphocytes # (Manual) 0.8 L PT INR APTT POC ABG pH POC ABG pCO2 POC ABG pO2 Sodium 135 L Potassium 3.5 L Chloride Carbon Dioxide 21 L BUN 22 H Creatinine Glucose POC Glucose Lactic Acid Calcium 8.1 L Phosphorus Magnesium Iron TIBC AST ALT Alkaline Phosphatase Total Creatine Kinase C-Reactive Protein Total Protein Albumin Folate PTH Intact Urine WBC (Auto) 28.0 H Urine Creatinine Urine Chloride Urine Total Protein Vancomycin Trough Miscellaneous Test Crossmatch 05/22/18 05/22/18 05/23/18 06:49 11:23 09:03 WBC RBC Hgb Hct MCHC RDW Plt Count Lymph % (Auto) [place] % (Auto) Lymph # [place] # Seg Neutrophils % Seg Neuts % (Manual) Lymphocytes % (Manual) Seg Neutrophils # Seg Neutrophils # Man Lymphocytes # (Manual) PT INR APTT POC ABG pH POC ABG pCO2 POC ABG pO2 Sodium 134 L Potassium 3.5 L Chloride Carbon Dioxide 21 L BUN 35 H 36 H Creatinine 1.7 H Glucose 107 H POC Glucose Lactic Acid Calcium 7.9 L Phosphorus Magnesium 2.50 H Iron TIBC AST ALT Alkaline Phosphatase Total Creatine Kinase C-Reactive Protein Total Protein Albumin Folate PTH Intact Urine WBC (Auto) Urine Creatinine Urine Chloride Urine Total Protein Vancomycin Trough Miscellaneous Test Crossmatch See Detail 05/23/18 05/23/18 05/23/18 09:03 09:03 17:34 WBC 26.3 H RBC 3.57 L Hgb 10.4 L Hct 31.1 L D MCHC RDW Plt Count Lymph % (Auto) [place] % (Auto) Lymph # [place] # Seg Neutrophils % Seg Neuts % (Manual) Lymphocytes % (Manual) Seg Neutrophils # Seg Neutrophils # Man Lymphocytes # (Manual) PT 18.3 H INR 1.43 H APTT 40.0 H POC ABG pH POC ABG pCO2 POC ABG pO2 Sodium Potassium Chloride Carbon Dioxide BUN Creatinine Glucose POC Glucose 108 H Lactic Acid Calcium Phosphorus Magnesium Iron TIBC AST ALT Alkaline Phosphatase Total Creatine Kinase C-Reactive Protein Total Protein Albumin Folate PTH Intact Urine WBC (Auto) Urine Creatinine Urine Chloride Urine Total Protein Vancomycin Trough Miscellaneous Test Crossmatch 05/23/18 05/24/18 05/24/18 21:14 04:43 08:04 WBC RBC Hgb Hct MCHC RDW Plt Count Lymph % (Auto) [place] % (Auto) Lymph # [place] # Seg Neutrophils % Seg Neuts % (Manual) Lymphocytes % (Manual) Seg Neutrophils # Seg Neutrophils # Man Lymphocytes # (Manual) PT INR APTT POC ABG pH POC ABG pCO2 POC ABG pO2 Sodium 146 H Potassium Chloride 108.6 H Carbon Dioxide BUN 33 H Creatinine Glucose 109 H POC Glucose 110 H 106 H Lactic Acid Calcium 8.3 L Phosphorus Magnesium 2.50 H Iron TIBC AST ALT Alkaline Phosphatase Total Creatine Kinase C-Reactive Protein Total Protein Albumin Folate PTH Intact Urine WBC (Auto) Urine Creatinine Urine Chloride Urine Total Protein Vancomycin Trough Miscellaneous Test Crossmatch 05/25/18 05/25/18 05/25/18 05:42 05:49 19:50 WBC RBC Hgb Hct MCHC RDW Plt Count Lymph % (Auto) [place] % (Auto) Lymph # [place] # Seg Neutrophils % Seg Neuts % (Manual) Lymphocytes % (Manual) Seg Neutrophils # Seg Neutrophils # Man Lymphocytes # (Manual) PT INR APTT POC ABG pH POC ABG pCO2 POC ABG pO2 Sodium 150 H Potassium Chloride 112.5 H Carbon Dioxide BUN 34 H Creatinine Glucose 102 H POC Glucose 107 H Lactic Acid Calcium Phosphorus Magnesium Iron TIBC AST ALT Alkaline Phosphatase Total Creatine Kinase C-Reactive Protein 34.50 H Total Protein Albumin Folate PTH Intact Urine WBC (Auto) Urine Creatinine Urine Chloride Urine Total Protein Vancomycin Trough Miscellaneous Test Crossmatch 05/25/18 05/25/18 05/25/18 19:50 21:05 22:46 WBC RBC Hgb Hct MCHC RDW Plt Count Lymph % (Auto) [place] % (Auto) Lymph # [place] # Seg Neutrophils % Seg Neuts % (Manual) Lymphocytes % (Manual) Seg Neutrophils # Seg Neutrophils # Man Lymphocytes # (Manual) PT INR APTT POC ABG pH 7.483 H POC ABG pCO2 24.0 L POC ABG pO2 72 L Sodium Potassium Chloride Carbon Dioxide BUN Creatinine Glucose POC Glucose Lactic Acid 5.90 H* Calcium Phosphorus Magnesium Iron TIBC AST ALT Alkaline Phosphatase Total Creatine Kinase C-Reactive Protein Total Protein Albumin Folate PTH Intact Urine WBC (Auto) Urine Creatinine Urine Chloride Urine Total Protein Vancomycin Trough 25.1 H Miscellaneous Test Crossmatch 05/25/18 05/26/18 05/26/18 22:46 00:21 00:51 WBC RBC Hgb Hct MCHC RDW Plt Count Lymph % (Auto) [place] % (Auto) Lymph # [place] # Seg Neutrophils % Seg Neuts % (Manual) Lymphocytes % (Manual) Seg Neutrophils # Seg Neutrophils # Man Lymphocytes # (Manual) PT INR APTT POC ABG pH POC ABG pCO2 POC ABG pO2 Sodium Potassium Chloride Carbon Dioxide BUN Creatinine Glucose POC Glucose 133 H Lactic Acid 8.10 H* 6.20 H* Calcium Phosphorus Magnesium Iron TIBC AST ALT Alkaline Phosphatase Total Creatine Kinase C-Reactive Protein Total Protein Albumin Folate PTH Intact Urine WBC (Auto) Urine Creatinine Urine Chloride Urine Total Protein Vancomycin Trough Miscellaneous Test Crossmatch 05/26/18 05/26/18 05/26/18 01:13 02:24 02:24 WBC 18.7 H RBC Hgb 11.6 L Hct MCHC RDW Plt Count Lymph % (Auto) [place] % (Auto) Lymph # [place] # Seg Neutrophils % Seg Neuts % (Manual) Lymphocytes % (Manual) Seg Neutrophils # Seg Neutrophils # Man Lymphocytes # (Manual) PT INR APTT POC ABG pH POC ABG pCO2 POC ABG pO2 Sodium 147 H Potassium 6.2 H* D Chloride 111.9 H Carbon Dioxide 19 L BUN 80 H Creatinine 5.1 H D Glucose 112 H POC Glucose Lactic Acid 5.20 H* Calcium 6.7 L D Phosphorus Magnesium Iron TIBC AST ALT Alkaline Phosphatase Total Creatine Kinase C-Reactive Protein Total Protein Albumin Folate PTH Intact Urine WBC (Auto) Urine Creatinine Urine Chloride Urine Total Protein Vancomycin Trough Miscellaneous Test Crossmatch 05/26/18 05/26/18 05/26/18 04:20 04:20 05:39 WBC RBC Hgb Hct MCHC RDW Plt Count Lymph % (Auto) [place] % (Auto) Lymph # [place] # Seg Neutrophils % Seg Neuts % (Manual) Lymphocytes % (Manual) Seg Neutrophils # Seg Neutrophils # Man Lymphocytes # (Manual) PT INR APTT POC ABG pH POC ABG pCO2 POC ABG pO2 Sodium 150 H Potassium Chloride 110.0 H Carbon Dioxide 19 L BUN 66 H Creatinine Glucose 166 H POC Glucose 187 H Lactic Acid 5.10 H* Calcium 6.9 L Phosphorus 6.70 H D Magnesium Iron TIBC AST ALT Alkaline Phosphatase Total Creatine Kinase C-Reactive Protein Total Protein Albumin Folate PTH Intact Urine WBC (Auto) Urine Creatinine Urine Chloride Urine Total Protein Vancomycin Trough Miscellaneous Test Crossmatch 05/26/18 05/26/18 05/26/18 06:02 07:29 11:00 WBC RBC Hgb Hct MCHC RDW Plt Count Lymph % (Auto) [place] % (Auto) Lymph # [place] # Seg Neutrophils % Seg Neuts % (Manual) Lymphocytes % (Manual) Seg Neutrophils # Seg Neutrophils # Man Lymphocytes # (Manual) PT INR APTT POC ABG pH POC ABG pCO2 28.8 L POC ABG pO2 Sodium Potassium Chloride Carbon Dioxide BUN Creatinine Glucose POC Glucose Lactic Acid 4.80 H* 3.80 H* Calcium Phosphorus Magnesium Iron TIBC AST ALT Alkaline Phosphatase Total Creatine Kinase C-Reactive Protein Total Protein Albumin Folate PTH Intact Urine WBC (Auto) Urine Creatinine Urine Chloride Urine Total Protein Vancomycin Trough Miscellaneous Test Crossmatch 05/26/18 05/26/18 05/26/18 11:01 12:28 18:00 WBC RBC Hgb Hct MCHC RDW Plt Count Lymph % (Auto) [place] % (Auto) Lymph # [place] # Seg Neutrophils % Seg Neuts % (Manual) Lymphocytes % (Manual) Seg Neutrophils # Seg Neutrophils # Man Lymphocytes # (Manual) PT INR APTT POC ABG pH POC ABG pCO2 POC ABG pO2 Sodium 150 H 151 H Potassium 5.3 H D 6.1 H* Chloride 110.3 H 117.0 H Carbon Dioxide 21 L 20 L BUN 75 H 77 H Creatinine 4.3 H D 4.6 H Glucose 161 H POC Glucose 114 H Lactic Acid Calcium 7.5 L 6.7 L Phosphorus Magnesium Iron TIBC AST 1041 H ALT 406 H Alkaline Phosphatase 281 H Total Creatine Kinase C-Reactive Protein Total Protein 4.4 L Albumin 1.3 L Folate PTH Intact Urine WBC (Auto) Urine Creatinine Urine Chloride Urine Total Protein Vancomycin Trough Miscellaneous Test Crossmatch 05/26/18 05/26/18 05/27/18 18:02 19:17 01:01 WBC 21.7 H RBC 2.70 L Hgb 7.8 L D Hct 24.6 L D MCHC RDW 15.3 H Plt Count Lymph % (Auto) [place] % (Auto) Lymph # [place] # Seg Neutrophils % Seg Neuts % (Manual) 94.0 H Lymphocytes % (Manual) 3.0 L Seg Neutrophils # Seg Neutrophils # Man 20.4 H Lymphocytes # (Manual) 0.7 L PT INR APTT POC ABG pH 7.159 L 7.205 L POC ABG pCO2 54.5 H 53.0 H POC ABG pO2 252 H Sodium Potassium Chloride Carbon Dioxide BUN Creatinine Glucose POC Glucose Lactic Acid Calcium Phosphorus Magnesium Iron TIBC AST ALT Alkaline Phosphatase Total Creatine Kinase C-Reactive Protein Total Protein Albumin Folate PTH Intact Urine WBC (Auto) Urine Creatinine Urine Chloride Urine Total Protein Vancomycin Trough Miscellaneous Test Crossmatch 05/27/18 05/27/18 05/27/18 05:15 05:15 06:11 WBC 24.9 H RBC 2.86 L Hgb 8.1 L Hct 25.9 L MCHC RDW 15.5 H Plt Count Lymph % (Auto) [place] % (Auto) Lymph # [place] # Seg Neutrophils % Seg Neuts % (Manual) Lymphocytes % (Manual) Seg Neutrophils # Seg Neutrophils # Man Lymphocytes # (Manual) PT INR APTT POC ABG pH 7.265 L POC ABG pCO2 46.2 H POC ABG pO2 111 H Sodium 149 H Potassium 6.9 H* Chloride 113.5 H Carbon Dioxide BUN 89 H Creatinine 5.2 H Glucose 118 H POC Glucose Lactic Acid Calcium 7.0 L Phosphorus 9.70 H D Magnesium Iron TIBC AST 876 H ALT 408 H Alkaline Phosphatase Total Creatine Kinase C-Reactive Protein Total Protein 5.2 L Albumin 1.5 L Folate PTH Intact Urine WBC (Auto) Urine Creatinine Urine Chloride Urine Total Protein Vancomycin Trough Miscellaneous Test Crossmatch 05/27/18 05/27/18 05/27/18 08:48 10:22 10:22 WBC RBC Hgb Hct MCHC RDW Plt Count Lymph % (Auto) [place] % (Auto) Lymph # [place] # Seg Neutrophils % Seg Neuts % (Manual) Lymphocytes % (Manual) Seg Neutrophils # Seg Neutrophils # Man Lymphocytes # (Manual) PT INR APTT POC ABG pH POC ABG pCO2 POC ABG pO2 Sodium 146 H Potassium 6.1 H* Chloride 108.2 H Carbon Dioxide 21 L BUN 88 H Creatinine 5.6 H Glucose 163 H POC Glucose 164 H Lactic Acid Calcium 6.7 L Phosphorus Magnesium Iron TIBC AST ALT Alkaline Phosphatase Total Creatine Kinase C-Reactive Protein 40.70 H Total Protein Albumin Folate PTH Intact Urine WBC (Auto) Urine Creatinine Urine Chloride Urine Total Protein Vancomycin Trough Miscellaneous Test Crossmatch 05/27/18 05/27/18 05/27/18 13:02 17:39 23:27 WBC RBC Hgb Hct MCHC RDW Plt Count Lymph % (Auto) [place] % (Auto) Lymph # [place] # Seg Neutrophils % Seg Neuts % (Manual) Lymphocytes % (Manual) Seg Neutrophils # Seg Neutrophils # Man Lymphocytes # (Manual) PT INR APTT POC ABG pH POC ABG pCO2 POC ABG pO2 Sodium Potassium Chloride Carbon Dioxide BUN Creatinine Glucose POC Glucose 59 L 132 H Lactic Acid Calcium Phosphorus Magnesium Iron TIBC AST ALT Alkaline Phosphatase Total Creatine Kinase C-Reactive Protein Total Protein Albumin Folate PTH Intact Urine WBC (Auto) Urine Creatinine Urine Chloride Urine Total Protein Vancomycin Trough Miscellaneous Test Flexitest 1 H Crossmatch 05/27/18 05/28/18 05/28/18 Unknown 04:32 05:00 WBC RBC Hgb Hct MCHC RDW Plt Count Lymph % (Auto) [place] % (Auto) Lymph # [place] # Seg Neutrophils % Seg Neuts % (Manual) Lymphocytes % (Manual) Seg Neutrophils # Seg Neutrophils # Man Lymphocytes # (Manual) PT INR APTT POC ABG pH POC ABG pCO2 POC ABG pO2 134 H Sodium Potassium Chloride Carbon Dioxide BUN 69 H Creatinine 4.4 H Glucose 118 H POC Glucose Lactic Acid Calcium 8.0 L D Phosphorus 6.80 H D Magnesium Iron TIBC AST ALT Alkaline Phosphatase Total Creatine Kinase C-Reactive Protein Total Protein Albumin Folate PTH Intact Urine WBC (Auto) 120.0 H Urine Creatinine Urine Chloride Urine Total Protein Vancomycin Trough Miscellaneous Test Crossmatch 05/28/18 05/28/18 05/28/18 05:00 05:27 13:04 WBC 26.5 H RBC 2.69 L Hgb 7.7 L Hct 23.6 L MCHC RDW Plt Count Lymph % (Auto) [place] % (Auto) Lymph # [place] # Seg Neutrophils % Seg Neuts % (Manual) 96.0 H Lymphocytes % (Manual) 0 L Seg Neutrophils # Seg Neutrophils # Man 25.4 H Lymphocytes # (Manual) 0.0 L PT INR APTT POC ABG pH POC ABG pCO2 POC ABG pO2 Sodium Potassium Chloride Carbon Dioxide BUN Creatinine Glucose POC Glucose 128 H 155 H Lactic Acid Calcium Phosphorus Magnesium Iron TIBC AST ALT Alkaline Phosphatase Total Creatine Kinase C-Reactive Protein Total Protein Albumin Folate PTH Intact Urine WBC (Auto) Urine Creatinine Urine Chloride Urine Total Protein Vancomycin Trough Miscellaneous Test Crossmatch 05/28/18 05/29/18 05/29/18 17:56 03:35 04:00 WBC RBC Hgb Hct MCHC RDW Plt Count Lymph % (Auto) [place] % (Auto) Lymph # [place] # Seg Neutrophils % Seg Neuts % (Manual) Lymphocytes % (Manual) Seg Neutrophils # Seg Neutrophils # Man Lymphocytes # (Manual) PT INR APTT POC ABG pH 7.471 H POC ABG pCO2 POC ABG pO2 78 L Sodium Potassium Chloride Carbon Dioxide BUN 50 H Creatinine 3.9 H Glucose POC Glucose 110 H Lactic Acid Calcium 7.7 L Phosphorus Magnesium 1.50 L Iron TIBC AST 218 H ALT 204 H Alkaline Phosphatase Total Creatine Kinase C-Reactive Protein Total Protein 5.4 L Albumin 1.6 L Folate PTH Intact Urine WBC (Auto) Urine Creatinine Urine Chloride Urine Total Protein Vancomycin Trough Miscellaneous Test Crossmatch 05/29/18 05/29/18 05/30/18 11:51 23:56 04:54 WBC RBC Hgb Hct MCHC RDW Plt Count Lymph % (Auto) [place] % (Auto) Lymph # [place] # Seg Neutrophils % Seg Neuts % (Manual) Lymphocytes % (Manual) Seg Neutrophils # Seg Neutrophils # Man Lymphocytes # (Manual) PT INR APTT POC ABG pH POC ABG pCO2 POC ABG pO2 Sodium Potassium Chloride Carbon Dioxide BUN Creatinine Glucose POC Glucose 131 H 119 H 115 H Lactic Acid Calcium Phosphorus Magnesium Iron TIBC AST ALT Alkaline Phosphatase Total Creatine Kinase C-Reactive Protein Total Protein Albumin Folate PTH Intact Urine WBC (Auto) Urine Creatinine Urine Chloride Urine Total Protein Vancomycin Trough Miscellaneous Test Crossmatch 05/30/18 05/30/18 05/30/18 05:07 05:15 05:15 WBC 16.2 H RBC 2.53 L Hgb 7.4 L Hct 21.9 L MCHC RDW Plt Count Lymph % (Auto) [place] % (Auto) Lymph # [place] # Seg Neutrophils % Seg Neuts % (Manual) Lymphocytes % (Manual) Seg Neutrophils # Seg Neutrophils # Man Lymphocytes # (Manual) PT INR APTT POC ABG pH POC ABG pCO2 34.5 L POC ABG pO2 133 H Sodium 135 L Potassium Chloride 97.5 L Carbon Dioxide BUN 69 H Creatinine 5.4 H Glucose 105 H POC Glucose Lactic Acid Calcium 7.5 L Phosphorus 5.30 H D Magnesium Iron TIBC AST ALT Alkaline Phosphatase Total Creatine Kinase C-Reactive Protein Total Protein Albumin Folate PTH Intact Urine WBC (Auto) Urine Creatinine Urine Chloride Urine Total Protein Vancomycin Trough Miscellaneous Test Crossmatch 05/30/18 05/30/18 05/31/18 12:13 17:10 04:50 WBC 18.7 H RBC 2.86 L Hgb 8.2 L Hct 24.8 L MCHC RDW Plt Count Lymph % (Auto) [place] % (Auto) Lymph # [place] # Seg Neutrophils % Seg Neuts % (Manual) 91.0 H Lymphocytes % (Manual) 2.0 L Seg Neutrophils # Seg Neutrophils # Man 17.0 H Lymphocytes # (Manual) 0.4 L PT INR APTT POC ABG pH POC ABG pCO2 POC ABG pO2 Sodium Potassium Chloride Carbon Dioxide BUN Creatinine Glucose POC Glucose 132 H 122 H Lactic Acid Calcium Phosphorus Magnesium Iron TIBC AST ALT Alkaline Phosphatase Total Creatine Kinase C-Reactive Protein Total Protein Albumin Folate PTH Intact Urine WBC (Auto) Urine Creatinine Urine Chloride Urine Total Protein Vancomycin Trough Miscellaneous Test Crossmatch 05/31/18 05/31/18 05/31/18 04:50 05:45 11:37 WBC RBC Hgb Hct MCHC RDW Plt Count Lymph % (Auto) [place] % (Auto) Lymph # [place] # Seg Neutrophils % Seg Neuts % (Manual) Lymphocytes % (Manual) Seg Neutrophils # Seg Neutrophils # Man Lymphocytes # (Manual) PT INR APTT POC ABG pH POC ABG pCO2 POC ABG pO2 Sodium 132 L Potassium Chloride 92.4 L Carbon Dioxide BUN 77 H Creatinine 5.9 H Glucose POC Glucose 111 H 136 H Lactic Acid Calcium 7.3 L Phosphorus 6.40 H D Magnesium Iron TIBC AST ALT Alkaline Phosphatase Total Creatine Kinase C-Reactive Protein Total Protein Albumin Folate PTH Intact Urine WBC (Auto) Urine Creatinine Urine Chloride Urine Total Protein Vancomycin Trough Miscellaneous Test Crossmatch 05/31/18 06/01/18 06/01/18 17:52 00:09 04:00 WBC RBC Hgb Hct MCHC RDW Plt Count Lymph % (Auto) [place] % (Auto) Lymph # [place] # Seg Neutrophils % Seg Neuts % (Manual) Lymphocytes % (Manual) Seg Neutrophils # Seg Neutrophils # Man Lymphocytes # (Manual) PT INR APTT POC ABG pH POC ABG pCO2 POC ABG pO2 Sodium Potassium Chloride 97.5 L Carbon Dioxide BUN 49 H Creatinine 4.2 H Glucose 104 H POC Glucose 115 H 114 H Lactic Acid Calcium 7.3 L Phosphorus 4.70 H D Magnesium Iron TIBC AST ALT Alkaline Phosphatase Total Creatine Kinase C-Reactive Protein Total Protein Albumin Folate PTH Intact Urine WBC (Auto) Urine Creatinine Urine Chloride Urine Total Protein Vancomycin Trough Miscellaneous Test Crossmatch 06/01/18 06/01/18 06/02/18 11:10 17:56 00:15 WBC RBC Hgb Hct MCHC RDW Plt Count Lymph % (Auto) [place] % (Auto) Lymph # [place] # Seg Neutrophils % Seg Neuts % (Manual) Lymphocytes % (Manual) Seg Neutrophils # Seg Neutrophils # Man Lymphocytes # (Manual) PT INR APTT POC ABG pH POC ABG pCO2 POC ABG pO2 Sodium Potassium Chloride Carbon Dioxide BUN Creatinine Glucose POC Glucose 123 H 126 H 135 H Lactic Acid Calcium Phosphorus Magnesium Iron TIBC AST ALT Alkaline Phosphatase Total Creatine Kinase C-Reactive Protein Total Protein Albumin Folate PTH Intact Urine WBC (Auto) Urine Creatinine Urine Chloride Urine Total Protein Vancomycin Trough Miscellaneous Test Crossmatch 06/02/18 06/02/18 06/02/18 05:23 12:42 13:05 WBC RBC Hgb Hct MCHC RDW Plt Count Lymph % (Auto) [place] % (Auto) Lymph # [place] # Seg Neutrophils % Seg Neuts % (Manual) Lymphocytes % (Manual) Seg Neutrophils # Seg Neutrophils # Man Lymphocytes # (Manual) PT 17.1 H INR 1.34 H APTT POC ABG pH POC ABG pCO2 POC ABG pO2 Sodium Potassium Chloride Carbon Dioxide BUN Creatinine Glucose POC Glucose 135 H 142 H Lactic Acid Calcium Phosphorus Magnesium Iron TIBC AST ALT Alkaline Phosphatase Total Creatine Kinase C-Reactive Protein Total Protein Albumin Folate PTH Intact Urine WBC (Auto) Urine Creatinine Urine Chloride Urine Total Protein Vancomycin Trough Miscellaneous Test Crossmatch 06/02/18 06/02/18 06/03/18 Unknown Unknown 00:54 WBC 20.8 H RBC 2.67 L Hgb 7.7 L Hct 23.0 L MCHC RDW Plt Count 500 H Lymph % (Auto) [place] % (Auto) Lymph # [place] # Seg Neutrophils % Seg Neuts % (Manual) Lymphocytes % (Manual) Seg Neutrophils # Seg Neutrophils # Man Lymphocytes # (Manual) PT INR APTT POC ABG pH POC ABG pCO2 POC ABG pO2 Sodium 136 L Potassium 3.5 L Chloride 96.9 L Carbon Dioxide BUN 62 H Creatinine 4.9 H Glucose 133 H POC Glucose 125 H Lactic Acid Calcium 7.2 L Phosphorus 5.00 H Magnesium Iron TIBC AST 46 H ALT 66 H Alkaline Phosphatase Total Creatine Kinase C-Reactive Protein Total Protein 5.7 L Albumin 1.5 L Folate PTH Intact Urine WBC (Auto) Urine Creatinine Urine Chloride Urine Total Protein Vancomycin Trough Miscellaneous Test Crossmatch 06/03/18 06/03/18 06/03/18 03:31 09:18 09:18 WBC RBC Hgb Hct MCHC RDW Plt Count Lymph % (Auto) [place] % (Auto) Lymph # [place] # Seg Neutrophils % Seg Neuts % (Manual) Lymphocytes % (Manual) Seg Neutrophils # Seg Neutrophils # Man Lymphocytes # (Manual) PT 17.1 H INR 1.34 H APTT POC ABG pH POC ABG pCO2 POC ABG pO2 Sodium 136 L Potassium Chloride Carbon Dioxide BUN 41 H Creatinine 3.4 H Glucose 129 H POC Glucose Lactic Acid Calcium 7.4 L Phosphorus Magnesium Iron TIBC AST ALT Alkaline Phosphatase Total Creatine Kinase C-Reactive Protein 11.10 H Total Protein Albumin Folate PTH Intact Urine WBC (Auto) Urine Creatinine Urine Chloride Urine Total Protein Vancomycin Trough Miscellaneous Test Crossmatch 06/03/18 06/03/18 06/04/18 16:07 21:18 04:31 WBC RBC Hgb Hct MCHC RDW Plt Count Lymph % (Auto) [place] % (Auto) Lymph # [place] # Seg Neutrophils % Seg Neuts % (Manual) Lymphocytes % (Manual) Seg Neutrophils # Seg Neutrophils # Man Lymphocytes # (Manual) PT INR APTT POC ABG pH POC ABG pCO2 POC ABG pO2 Sodium Potassium Chloride Carbon Dioxide BUN 55 H Creatinine 3.7 H Glucose 151 H POC Glucose 144 H 128 H Lactic Acid Calcium 7.8 L Phosphorus 4.60 H Magnesium Iron TIBC AST ALT Alkaline Phosphatase Total Creatine Kinase C-Reactive Protein Total Protein Albumin Folate PTH Intact Urine WBC (Auto) Urine Creatinine Urine Chloride Urine Total Protein Vancomycin Trough Miscellaneous Test Crossmatch 06/04/18 06/04/18 06/04/18 06:14 11:38 17:09 WBC RBC Hgb Hct MCHC RDW Plt Count Lymph % (Auto) [place] % (Auto) Lymph # [place] # Seg Neutrophils % Seg Neuts % (Manual) Lymphocytes % (Manual) Seg Neutrophils # Seg Neutrophils # Man Lymphocytes # (Manual) PT INR APTT POC ABG pH POC ABG pCO2 POC ABG pO2 Sodium Potassium Chloride Carbon Dioxide BUN Creatinine Glucose POC Glucose 145 H 129 H 142 H Lactic Acid Calcium Phosphorus Magnesium Iron TIBC AST ALT Alkaline Phosphatase Total Creatine Kinase C-Reactive Protein Total Protein Albumin Folate PTH Intact Urine WBC (Auto) Urine Creatinine Urine Chloride Urine Total Protein Vancomycin Trough Miscellaneous Test Crossmatch 06/04/18 06/04/18 06/05/18 20:00 21:29 06:30 WBC RBC Hgb 8.8 L Hct 27.3 L MCHC RDW Plt Count Lymph % (Auto) [place] % (Auto) Lymph # [place] # Seg Neutrophils % Seg Neuts % (Manual) Lymphocytes % (Manual) Seg Neutrophils # Seg Neutrophils # Man Lymphocytes # (Manual) PT INR APTT POC ABG pH POC ABG pCO2 POC ABG pO2 Sodium Potassium Chloride Carbon Dioxide BUN Creatinine Glucose POC Glucose 130 H 153 H Lactic Acid Calcium Phosphorus Magnesium Iron TIBC AST ALT Alkaline Phosphatase Total Creatine Kinase C-Reactive Protein Total Protein Albumin Folate PTH Intact Urine WBC (Auto) Urine Creatinine Urine Chloride Urine Total Protein Vancomycin Trough Miscellaneous Test Crossmatch 06/05/18 06/05/18 06/05/18 07:00 07:00 12:10 WBC 19.3 H RBC 2.94 L Hgb 8.3 L Hct 25.6 L MCHC RDW 15.7 H Plt Count 568 H Lymph % (Auto) 4.7 L [place] % (Auto) Lymph # 0.9 L [place] # 1.1 H Seg Neutrophils % 88.9 H Seg Neuts % (Manual) Lymphocytes % (Manual) Seg Neutrophils # 17.2 H Seg Neutrophils # Man Lymphocytes # (Manual) PT INR APTT POC ABG pH POC ABG pCO2 POC ABG pO2 Sodium Potassium 3.4 L D Chloride Carbon Dioxide BUN 67 H Creatinine 3.6 H Glucose 145 H POC Glucose 150 H Lactic Acid Calcium 7.9 L Phosphorus 4.60 H Magnesium Iron TIBC AST ALT Alkaline Phosphatase Total Creatine Kinase C-Reactive Protein Total Protein Albumin Folate PTH Intact Urine WBC (Auto) Urine Creatinine Urine Chloride Urine Total Protein Vancomycin Trough Miscellaneous Test Crossmatch 06/05/18 06/06/18 06/06/18 16:01 06:39 07:14 WBC 16.5 H RBC 2.84 L Hgb 8.1 L Hct 25.2 L MCHC RDW 16.4 H Plt Count 526 H Lymph % (Auto) 6.5 L [place] % (Auto) Lymph # 1.1 L [place] # 1.2 H Seg Neutrophils % 85.3 H Seg Neuts % (Manual) Lymphocytes % (Manual) Seg Neutrophils # 14.1 H Seg Neutrophils # Man Lymphocytes # (Manual) PT INR APTT POC ABG pH POC ABG pCO2 POC ABG pO2 Sodium Potassium Chloride Carbon Dioxide BUN Creatinine Glucose POC Glucose 129 H 131 H Lactic Acid Calcium Phosphorus Magnesium Iron TIBC AST ALT Alkaline Phosphatase Total Creatine Kinase C-Reactive Protein Total Protein Albumin Folate PTH Intact Urine WBC (Auto) Urine Creatinine Urine Chloride Urine Total Protein Vancomycin Trough Miscellaneous Test Crossmatch 06/06/18 06/06/18 06/06/18 07:14 07:14 11:15 WBC RBC Hgb Hct MCHC RDW Plt Count Lymph % (Auto) [place] % (Auto) Lymph # [place] # Seg Neutrophils % Seg Neuts % (Manual) Lymphocytes % (Manual) Seg Neutrophils # Seg Neutrophils # Man Lymphocytes # (Manual) PT INR APTT POC ABG pH POC ABG pCO2 POC ABG pO2 Sodium Potassium Chloride 109.1 H Carbon Dioxide 21 L BUN 76 H Creatinine 3.5 H Glucose 111 H POC Glucose 127 H Lactic Acid Calcium 8.1 L Phosphorus Magnesium Iron TIBC AST ALT Alkaline Phosphatase Total Creatine Kinase C-Reactive Protein 4.70 H Total Protein Albumin Folate PTH Intact Urine WBC (Auto) Urine Creatinine Urine Chloride Urine Total Protein Vancomycin Trough Miscellaneous Test Crossmatch Allied health notes reviewed: nursing
--- NOTE | 2018-06-06 19:16 | Progress Note ---
Assessment and Plan - Patient Problems (1) Acute renal failure Current Visit: Yes Status: Acute Qualifiers: Acute renal failure type: unspecified Qualified Code(s): N17.9 - Acute kidney failure, unspecified Plan to address problem: Follow renal service. (2) Edema Current Visit: Yes Status: Acute Qualifiers: Edema type: unspecified Qualified Code(s): R60.9 - Edema, unspecified Plan to address problem: Due in part to overall tumor burden., and may be poor protien. (3) Pelvic mass in male Current Visit: Yes Status: Acute Plan to address problem: consistent with SQ cell histology, REC remains the same. (4) Sepsis Current Visit: Yes Status: Acute Plan to address problem: treat underlying issues. Subjective Date of service: 06/06/18 Principal diagnosis: sq ca - pelvic mass Interval history: I am covering DR Oates/PM group.Patient seen, resting in bed, records reviewed, cbc fair. Prostate bx with Squamous histology. REC remains the same until any further conclusive results.Treat other co morbid issues.WBC19.3, H/h8.3/25, [id number]. Covering DR Plunkett. Patient seen,resting in bed, records reviewed. Hgb dropped by o.2 very insignificant. Objective - Constitutional Vitals: Vital Signs - 12hr 06/06/18 06/06/18 06/06/18 08:00 08:58 10:00 Temperature 97.7 F Pulse Rate 94 H 87 Pulse Rate [ 86 Apical] Pulse Rate [ 86 Left Dorsalis Pedis] Pulse Rate [ 86 Left Radial] Pulse Rate [ 86 Right Dorsalis Pedis] Pulse Rate [ 86 Right Radial] Respiratory 22 24 Rate Blood Pressure 170/102 O2 Sat by Pulse 100 98 Oximetry General appearance: Present: no acute distress - EENT Eyes: PERRL, EOM intact ENT: hearing intact, clear oral mucosa Ears: bilateral: normal - Neck Neck: supple, normal ROM - Respiratory Respiratory effort: normal Respiratory: bilateral: CTA - Breasts Breasts: deferred - Cardiovascular Rhythm: regular Heart Sounds: Present: S1 & S2. Absent: gallop, rub Extremities: pulses intact, No edema, normal color, Full ROM - Gastrointestinal General gastrointestinal: Present: soft, non-tender, non-distended, normal bowel sounds Rectal Exam: deferred - Genitourinary Male genitourinary: deferred - Integumentary Integumentary: clear, warm, dry - Musculoskeletal Musculoskeletal: 1, strength equal bilaterally - Neurologic Neurologic: moves all extremities - Psychiatric Psychiatric: memory intact, appropriate mood/affect, intact judgment & insight - Labs CBC & Chem 7: 06/06/18 07:14 06/06/18 07:14 Labs: Abnormal lab results 06/06/18 06/06/18 06/06/18 Range/Units 06:39 07:14 07:14 WBC 16.5 H (4.5-11.0) K/mm3 RBC 2.84 L (3.65-5.03) M/mm3 Hgb 8.1 L (11.8-15.2) gm/dl Hct 25.2 L (35.5-45.6) % RDW 16.4 H (13.2-15.2) % Plt Count 526 H (140-440) K/mm3 Lymph % (Auto) 6.5 L (13.4-35.0) % Lymph # 1.1 L (1.2-5.4) K/mm3 [place] # 1.2 H (0.0-0.8) K/mm3 Seg Neutrophils % 85.3 H (40.0-70.0) % Seg Neutrophils # 14.1 H (1.8-7.7) K/mm3 Chloride 109.1 H (98-107) mmol/L Carbon Dioxide 21 L (22-30) mmol/L BUN 76 H (9-20) mg/dL Creatinine 3.5 H (0.8-1.5) mg/dL Glucose 111 H (75-100) mg/dL POC Glucose 131 H (70-105) Calcium 8.1 L (8.4-10.2) mg/dL C-Reactive Protein (0.00-1.30) mg/dL 06/06/18 06/06/18 06/06/18 Range/Units 07:14 11:15 18:00 WBC (4.5-11.0) K/mm3 RBC (3.65-5.03) M/mm3 Hgb (11.8-15.2) gm/dl Hct (35.5-45.6) % RDW (13.2-15.2) % Plt Count (140-440) K/mm3 Lymph % (Auto) (13.4-35.0) % Lymph # (1.2-5.4) K/mm3 [place] # (0.0-0.8) K/mm3 Seg Neutrophils % (40.0-70.0) % Seg Neutrophils # (1.8-7.7) K/mm3 Chloride (98-107) mmol/L Carbon Dioxide (22-30) mmol/L BUN (9-20) mg/dL Creatinine (0.8-1.5) mg/dL Glucose (75-100) mg/dL POC Glucose 127 H 130 H (70-105) Calcium (8.4-10.2) mg/dL C-Reactive Protein 4.70 H (0.00-1.30) mg/dL
[2018-06-06] MEDS ORDERED: TPN ADULT 2,016 ML IV SCH (20:00)
--- NOTE | 2018-06-06 20:07 | Cat Scan Report ---
FINAL REPORT PROCEDURE: CT ABDOMEN PELVIS WO CON TECHNIQUE: Computerized axial tomography of the abdomen and pelvis was performed without intravenous contrast. This study is performed without intravascular contrast material and its sensitivity for abdominal and pelvic pathology, including neoplasms, inflammation, abscess, free fluid, thrombosis, arterial dissection and infarction, is reduced compared with a contrast enhanced study. HISTORY: pelvic fluid collections COMPARISON: 05/21/2018 FINDINGS: Visualized lower thorax: There are large layering bilateral pleural effusions with atelectasis or infiltrates of bilateral lower lungs. Liver: Normal size and attenuation. Spleen: Normal size and attenuation. Gallbladder and biliary system: Gallbladder is present. Pancreas: Limited evaluation. Adrenals: Normal. Kidneys: Bilateral nephrostomy tubes are present. No hydronephrosis bilaterally. GI tract: There has been interval colostomy. Mild dilatation of the small bowel loops may be related to ileus pattern or partial obstruction Lymph nodes and mesentery: There are again seen prominent bilateral iliac chain lymph nodes. Vasculature: Normal. Bladder: Normal. Reproductive organs: Normal. Peritoneum: There is increased intraperitoneal fluid seen within the abdomen bilaterally. Musculoskeletal structures: Degenerative disc changes at L5-S1. Other: Large lobular mass measuring 7 centimeters craniocaudal x 6.5 centimeters transverse x 8.7 centimeters AP is seen in the pelvis, with central low density, which suggests necrosis. Cannot exclude a superimposed infectious process IMPRESSION: Large mass is seen again in the pelvis with central low density, suggesting necrosis. Cannot exclude superimposed infectious process. There is increased intraperitoneal fluid seen in the abdomen. There has been interval colostomy, with mild dilatation of proximal large and small bowel loops, which could be related to an ileus pattern or partial obstruction. Bilateral large layering pleural effusions with adjacent pulmonary atelectasis or infiltrates.
[2018-06-07] MEDS: HumuLIN R SUB-Q SCH ×4 (02:19→17:32)
[2018-06-07] MEDS: FLAGYL 500 MG/100 ML 500 MG/100 ML BAG IV SCH ×2 (05:30→13:46)
[2018-06-07] MEDS: APRESOLINE IV PRN (05:30)
[2018-06-07] MEDS: APRESOLINE PO SCH ×4 (05:31→22:08)
[2018-06-07 06:05] LABS: Basophils # (Auto) 0.1 K/mm3 (0.0-0.1); Basophils % (Auto) 0.9 % (0.0-1.8); Eosinophils # (Auto) 0.1 K/mm3 (0.0-0.4); Eosinophils % (Auto) 0.5 % (0.0-4.3); Hematocrit 23.1 % (35.5-45.6); Hemoglobin 7.4 gm/dl (11.8-15.2); Lymphocytes # (Auto) 0.8 K/mm3 (1.2-5.4); Lymphocytes % (Auto) 5.3 % (13.4-35.0); Mean Corpuscular HGB Conc 32 % (32-34); Mean Corpuscular Hemoglobin 28 pg (28-32); Mean Corpuscular Volume 89 fl (84-94); Monocytes % (Auto) 6.7 % (0.0-7.3); Platelet Count 506 K/mm3 (140-440); Red Cell Distribution Width 16.5 % (13.2-15.2)
[2018-06-07 06:53] LABS: Calcium 8.1 mg/dL (8.4-10.2)
--- NOTE | 2018-06-07 08:57 | Progress Note ---
Assessment and Plan 1. Acute kidney injury: Recurrent Acute kidney injury. Initial MARYLOU in the setting of bilateral hydronephrosis secondary to pelvic mass , now s/p bilateral nephrostomy. Patient required urgent hemodialysis due to worsening renal function and persistent hyperkalemia. Last dialyzed 06/02/81. Creatinine leveled off. BUN increasing. Renal prognosis is guarded. On PPN / TPN. Patient appears volume depleted. Restart IV fluids. 2. Electrolytes: Monitor. 3. Bowel obstruction: S/p ostomy. 4. Bilateral hydronephrosis: S/p bilateral nephrostomy. S/p Cysto and drainage of abscess. 5. Respiratory failure: S/p extubated. 6. Hypertension: Clonidine patch dose was increased. BP is better. 7. Anemia. 8. 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 Subjective Date of service: 06/07/18 Principal diagnosis: sq ca - pelvic mass Interval history: Patient was seen and examined at the bedside. Objective - Vital Signs Vital signs: Vital Signs - 12hr 06/06/18 06/06/18 06/07/18 22:00 23:59 04:00 Temperature 97.9 F Pulse Rate 79 85 Respiratory 18 Rate Blood Pressure 154/99 O2 Sat by Pulse 98 99 Oximetry 06/07/18 06/07/18 04:27 05:30 Temperature 98.2 F Pulse Rate 81 85 Respiratory 18 Rate Blood Pressure 170/98 170/98 O2 Sat by Pulse 96 Oximetry - General Appearance General appearance: well-developed, appears stated age, other (not in distress) EENT: ATNC, PERRL, mucous membranes dry Neck: supple Respiratory: Present: Clear to Ascultation Cardiology: regular, S1S2, no murmurs Gastrointestinal: normoactive bowel sounds, tenderness, distended, other ( bilateral nephrostomy and ostomy noted) Integumentary: no rash Neurologic: no focal deficit, no asterixis Musculoskeletal: other (no edema) - Lab 06/07/18 05:45 06/07/18 05:45 Most recent lab results Calcium 8.1 mg/dL (8.4-10.2) L 06/07/18 05:45 Phosphorus 5.10 mg/dL (2.5-4.5) H 06/07/18 05:45 Magnesium 1.90 mg/dL (1.7-2.3) 06/07/18 05:45 Urine Creatinine 66.0 mg/dL (0.1-20.0) H 05/13/18 19:39 Urine Sodium 60 mmol/L 05/13/18 19:39 Urine Total Protein 24 mg/dL (5-11.8) H 05/13/18 19:39
[2018-06-07] MEDS: MAXIPIME/NS 2 GM/100 ML 2 GM/100 ML BAG IV SCH (09:52)
[2018-06-07] MEDS: FOLVITE PO SCH (09:52)
[2018-06-07] MEDS: HEPARIN SUB-Q SCH ×2 (09:53→21:55)
[2018-06-07] MEDS: FERROUS SULFATE PO SCH ×3 (09:59→22:09)
[2018-06-07] MEDS: PEPCID IV SCH (09:59)
[2018-06-07 12:03] LABS: Amylase,Body Fluid 126; LDH,Body Fluid > 12000; Total Protein,Body Fluid 3.7 (15.0-45.0)
[2018-06-07] MEDS: CATAPRES-TTS PATCH TD SCH (12:30)
--- NOTE | 2018-06-07 13:04 | Progress Note ---
Assessment and Plan Assessment: 1) Sepsis: Improved. Leukocytes 15.5. Etiology unclear - most likely necrotic malignancy ? abscess +/- UTI +/- LLL pneumonia -Blood cx 05/15 neg, 05/20 neg, 05/26 neg -CRP=40 -->11 -Procal=79 - 2) Complicated UTI: repeat UA 05/21 28 wbc, trace LE. 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 Enlarged pelvic lymph nodes, bilateral hydronephrosis. -S/p 05/14/18 left and right nephrostomy tube placements and mass biopsy -S/p 05/18/2018 cystoscopy with right great toe pyelogram found to have a bladder mass and prostate mass -S/p 05/26/18 diverting colostomy. 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 Similar to prior. Differential diagnosis includes low-grade incomplete obstruction, ileus, and enterocolitis. -CT 06/06 - Large mass is seen again in the pelvis with central low density. suggesting necrosis. Cannot exclude superimposed infectious process. -Paracenthesis 06/03 + MSSE 4) LLL pneumonia, sputum cx + Yeast 5) MARYLOU 6) Weight loss Plan: -CT guided pelvic fluid drainage scheduled today -stop cefepime and flagyl D12 -start zosyn renally dosed to covered both anaerobic GNR and Staph epi -upon discharge will do zosyn IV 2.25 g q12 while on HD total 3 weeks until . This are preliminary orders, may need to be adjusted depending on new CT guided drainage and renal recovery. As per Dr Keita he would be NPO for several weeks so cannot do PO flagyl -trend CRP/procal [facility] M: [id number] O:[phone] Subjective Date of service: 06/07/18 Principal diagnosis: sq ca - pelvic mass Interval history: Patient laying in bed. Patient stated that he was doing ok Microbiology: Blood cultures: 05/15 neg 05/20 neg 05/26 ngtd Urine cultures: 05/21 neg 05/27 neg Sputum: 05/27 yeast OR cultures: 05/26 Bacteroides fragilis Peritoneal Fluid 06/03 - MSSE Current Antimicrobials: 05/27 cefepime, flagyl Previous Antimicrobials: Zosyn 05/19 zyvox Levaquin 05/26 Objective - Exam Narrative Exam: General appearance: Alert in NAD, nonconversant Eyes: anicteric sclerae, moist conjunctivae; no lid-lag; PERRLA HENT: Atraumatic; oropharynx +EET +NGT. Normal external ears. +temporal wasting Neck: Trachea midline; supple, no thyromegaly or lymphadenopathy Lungs: amy rhonchi CV: RRR, no murmurs Abdomen: Soft, +diverting colostomy +multiple drains and amy PC nephros Extremities: No peripheral edema or extremity lymphadenopathy Skin: Normal temperature, turgor and texture; no rash, ulcers or subcutaneous nodules Psych: alert and oriented to self and place. Neuro: Alert and oriented to self and place Lines: right fem line, right IJ - Constitutional Vitals: Vital Signs Temp Pulse Resp BP Pulse Ox 98.5 F 112 H 18 167/95 95 06/07/18 08:29 06/07/18 12:30 06/07/18 11:44 06/07/18 11:44 06/07/18 11:48 Temperature -Last 24 Hours Temperature 98.5 F Temperature 98.2 F Temperature 97.9 F Temperature 97.8 F Temperature 98.1 F - Labs CBC & Chem 7: 06/07/18 05:45 06/07/18 05:45 Labs: Abnormal lab results 06/06/18 06/06/18 06/06/18 Range/Units 07:14 11:15 18:00 WBC (4.5-11.0) K/mm3 RBC (3.65-5.03) M/mm3 Hgb (11.8-15.2) gm/dl Hct (35.5-45.6) % RDW (13.2-15.2) % Plt Count (140-440) K/mm3 Lymph % (Auto) (13.4-35.0) % Lymph # (1.2-5.4) K/mm3 Day # (0.0-0.8) K/mm3 Seg Neutrophils % (40.0-70.0) % Seg Neutrophils # (1.8-7.7) K/mm3 Chloride (98-107) mmol/L BUN (9-20) mg/dL Creatinine (0.8-1.5) mg/dL Glucose (75-100) mg/dL POC Glucose 127 H 130 H (70-105) Calcium (8.4-10.2) mg/dL Phosphorus (2.5-4.5) mg/dL C-Reactive Protein 4.70 H (0.00-1.30) mg/dL 06/06/18 06/07/18 06/07/18 Range/Units 23:58 05:45 05:45 WBC 15.5 H (4.5-11.0) K/mm3 RBC 2.60 L (3.65-5.03) M/mm3 Hgb 7.4 L (11.8-15.2) gm/dl Hct 23.1 L (35.5-45.6) % RDW 16.5 H (13.2-15.2) % Plt Count 506 H (140-440) K/mm3 Lymph % (Auto) 5.3 L (13.4-35.0) % Lymph # 0.8 L (1.2-5.4) K/mm3 Day # 1.0 H (0.0-0.8) K/mm3 Seg Neutrophils % 86.6 H (40.0-70.0) % Seg Neutrophils # 13.4 H (1.8-7.7) K/mm3 Chloride 108.4 H (98-107) mmol/L BUN 84 H (9-20) mg/dL Creatinine 3.5 H (0.8-1.5) mg/dL Glucose 119 H (75-100) mg/dL POC Glucose 114 H (70-105) Calcium 8.1 L (8.4-10.2) mg/dL Phosphorus 5.10 H (2.5-4.5) mg/dL C-Reactive Protein (0.00-1.30) mg/dL 06/07/18 Range/Units 05:54 WBC (4.5-11.0) K/mm3 RBC (3.65-5.03) M/mm3 Hgb (11.8-15.2) gm/dl Hct (35.5-45.6) % RDW (13.2-15.2) % Plt Count (140-440) K/mm3 Lymph % (Auto) (13.4-35.0) % Lymph # (1.2-5.4) K/mm3 Day # (0.0-0.8) K/mm3 Seg Neutrophils % (40.0-70.0) % Seg Neutrophils # (1.8-7.7) K/mm3 Chloride (98-107) mmol/L BUN (9-20) mg/dL Creatinine (0.8-1.5) mg/dL Glucose (75-100) mg/dL POC Glucose 114 H (70-105) Calcium (8.4-10.2) mg/dL Phosphorus (2.5-4.5) mg/dL C-Reactive Protein (0.00-1.30) mg/dL
--- NOTE | 2018-06-07 13:39 | Progress Note ---
Assessment and Plan Pt status quo. no compl Abd - stool in ostomy for CT guided pelvic fluid drainage today Objective Vital Signs - 12hr 06/07/18 06/07/18 06/07/18 04:00 04:27 05:30 Temperature 98.2 F Pulse Rate 85 81 85 Respiratory 18 Rate Blood Pressure 170/98 170/98 O2 Sat by Pulse 96 Oximetry 06/07/18 06/07/18 06/07/18 08:29 09:11 09:34 Temperature 98.5 F Pulse Rate 102 H 89 Respiratory 18 20 Rate Blood Pressure 157/102 181/134 O2 Sat by Pulse 100 100 99 Oximetry 06/07/18 06/07/18 06/07/18 09:36 11:44 11:48 Temperature Pulse Rate 91 H 86 91 H Respiratory 18 Rate Blood Pressure 167/95 O2 Sat by Pulse 100 96 95 Oximetry 06/07/18 12:30 Temperature Pulse Rate 112 H Respiratory Rate Blood Pressure O2 Sat by Pulse Oximetry - Labs 06/07/18 05:45 06/07/18 05:45 Diabetes panel 06/07/18 Range/Units 05:45 Sodium 144 (137-145) mmol/L Potassium 3.8 (3.6-5.0) mmol/L Chloride 108.4 H (98-107) mmol/L Carbon Dioxide 23 (22-30) mmol/L BUN 84 H (9-20) mg/dL Creatinine 3.5 H (0.8-1.5) mg/dL Glucose 119 H (75-100) mg/dL Calcium 8.1 L (8.4-10.2) mg/dL Calcium panel 06/07/18 Range/Units 05:45 Calcium 8.1 L (8.4-10.2) mg/dL Phosphorus 5.10 H (2.5-4.5) mg/dL Pituitary panel 06/07/18 Range/Units 05:45 Sodium 144 (137-145) mmol/L Potassium 3.8 (3.6-5.0) mmol/L Chloride 108.4 H (98-107) mmol/L Carbon Dioxide 23 (22-30) mmol/L BUN 84 H (9-20) mg/dL Creatinine 3.5 H (0.8-1.5) mg/dL Glucose 119 H (75-100) mg/dL Calcium 8.1 L (8.4-10.2) mg/dL Adrenal panel 06/07/18 Range/Units 05:45 Sodium 144 (137-145) mmol/L Potassium 3.8 (3.6-5.0) mmol/L Chloride 108.4 H (98-107) mmol/L Carbon Dioxide 23 (22-30) mmol/L BUN 84 H (9-20) mg/dL Creatinine 3.5 H (0.8-1.5) mg/dL Glucose 119 H (75-100) mg/dL Calcium 8.1 L (8.4-10.2) mg/dL
[2018-06-07] MEDS ORDERED: SUBLIMAZE ONE (14:24)
[2018-06-07] MEDS ORDERED: VERSED IV ONE ×2 (14:24→14:45)
[2018-06-07] MEDS ORDERED: SUBLIMAZE IV ONE (14:45)
[2018-06-07] MEDS ORDERED: XYLOCAINE 1% 20 mL ONE (15:36)
--- NOTE | 2018-06-07 15:46 | Progress Note ---
Assessment and Plan A/P Abdominal distention/ascites Paracentesis completed on 06/03 Check peritoneal cell count with differential, cytology, total protein, fluid culture, albumin, amylase, LDH and glucose Abdominal series in a.m. to rule out persistent ileus. Bilateral pneumonia (possibly aspiration) Monitor respiratory status Continue Nebs PRN Continue antibiotic Sepsis syndrome (wbc worsen, remains afebrile) Continue cefepime, metrodazole Acute kidney injury (obstructive uropathy vs contrast nephropathy) HD per nephrology Continue to monitor BMP and kidney fuction Had bilateral nephrostomy tubes placed 05/14/[address] Freeman. 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 Continue pain control PRN Acute deep venous thrombosis Anticoagulation on hold because of anemia, bilateral nephrostomy tubes and abdominal issues Moderate to severe protein calorie malnutrition Continue tube feeding Hypokalemia Potassium and mag replacement as needed Anemia (likey due to CKD, post op blood loss) Continue pain control PRN Continue supportive care Subjective Date of service: 06/07/18 Principal diagnosis: sq ca - pelvic mass Interval history: For CT guided pelvic fluid drainage today Objective - Constitutional Vitals: Vital Signs - 12hr 06/07/18 06/07/18 06/07/18 04:00 04:27 05:30 Temperature 98.2 F Pulse Rate 85 81 85 Pulse Rate [ Intra-Procedure ] Pulse Rate [Pre -Procedure] Respiratory 18 Rate Respiratory Rate [Intra- Procedure] Respiratory Rate [Pre- Procedure] Blood Pressure 170/98 170/98 Blood Pressure [Intra- Procedure] Blood Pressure [Pre-Procedure] O2 Sat by Pulse 96 Oximetry O2 Sat by Pulse Oximetry [ Intra-Procedure ] O2 Sat by Pulse Oximetry [Pre- Procedure] 06/07/18 06/07/18 06/07/18 08:29 09:11 09:34 Temperature 98.5 F Pulse Rate 102 H 89 Pulse Rate [ Intra-Procedure ] Pulse Rate [Pre -Procedure] Respiratory 18 20 Rate Respiratory Rate [Intra- Procedure] Respiratory Rate [Pre- Procedure] Blood Pressure 157/102 181/134 Blood Pressure [Intra- Procedure] Blood Pressure [Pre-Procedure] O2 Sat by Pulse 100 100 99 Oximetry O2 Sat by Pulse Oximetry [ Intra-Procedure ] O2 Sat by Pulse Oximetry [Pre- Procedure] 06/07/18 06/07/18 06/07/18 09:36 11:44 11:48 Temperature Pulse Rate 91 H 86 91 H Pulse Rate [ Intra-Procedure ] Pulse Rate [Pre -Procedure] Respiratory 18 Rate Respiratory Rate [Intra- Procedure] Respiratory Rate [Pre- Procedure] Blood Pressure 167/95 Blood Pressure [Intra- Procedure] Blood Pressure [Pre-Procedure] O2 Sat by Pulse 100 96 95 Oximetry O2 Sat by Pulse Oximetry [ Intra-Procedure ] O2 Sat by Pulse Oximetry [Pre- Procedure] 06/07/18 06/07/18 06/07/18 12:30 15:00 15:33 Temperature Pulse Rate 112 H Pulse Rate [ 99 H Intra-Procedure ] Pulse Rate [Pre 94 H -Procedure] Respiratory Rate Respiratory 31 H Rate [Intra- Procedure] Respiratory 20 Rate [Pre- Procedure] Blood Pressure Blood Pressure 158/104 [Intra- Procedure] Blood Pressure 165/99 [Pre-Procedure] O2 Sat by Pulse Oximetry O2 Sat by Pulse 100 Oximetry [ Intra-Procedure ] O2 Sat by Pulse 100 Oximetry [Pre- Procedure] 06/07/18 06/07/18 15:35 15:40 Temperature Pulse Rate Pulse Rate [ 110 H 116 H Intra-Procedure ] Pulse Rate [Pre -Procedure] Respiratory Rate Respiratory 28 H 30 H Rate [Intra- Procedure] Respiratory Rate [Pre- Procedure] Blood Pressure Blood Pressure 147/95 145/95 [Intra- Procedure] Blood Pressure [Pre-Procedure] O2 Sat by Pulse Oximetry O2 Sat by Pulse 100 100 Oximetry [ Intra-Procedure ] O2 Sat by Pulse Oximetry [Pre- Procedure] - Labs CBC & Chem 7: 06/07/18 05:45 06/08/18 05:24 Labs: Abnormal lab results 06/06/18 06/06/18 06/07/18 Range/Units 18:00 23:58 05:45 WBC 15.5 H (4.5-11.0) K/mm3 RBC 2.60 L (3.65-5.03) M/mm3 Hgb 7.4 L (11.8-15.2) gm/dl Hct 23.1 L (35.5-45.6) % RDW 16.5 H (13.2-15.2) % Plt Count 506 H (140-440) K/mm3 Lymph % (Auto) 5.3 L (13.4-35.0) % Lymph # 0.8 L (1.2-5.4) K/mm3 [place]ois # 1.0 H (0.0-0.8) K/mm3 Seg Neutrophils % 86.6 H (40.0-70.0) % Seg Neutrophils # 13.4 H (1.8-7.7) K/mm3 Chloride (98-107) mmol/L BUN (9-20) mg/dL Creatinine (0.8-1.5) mg/dL Glucose (75-100) mg/dL POC Glucose 130 H 114 H (70-105) Calcium (8.4-10.2) mg/dL Phosphorus (2.5-4.5) mg/dL 06/07/18 06/07/18 Range/Units 05:45 05:54 WBC (4.5-11.0) K/mm3 RBC (3.65-5.03) M/mm3 Hgb (11.8-15.2) gm/dl Hct (35.5-45.6) % RDW (13.2-15.2) % Plt Count (140-440) K/mm3 Lymph % (Auto) (13.4-35.0) % Lymph # (1.2-5.4) K/mm3 [place] # (0.0-0.8) K/mm3 Seg Neutrophils % (40.0-70.0) % Seg Neutrophils # (1.8-7.7) K/mm3 Chloride 108.4 H (98-107) mmol/L BUN 84 H (9-20) mg/dL Creatinine 3.5 H (0.8-1.5) mg/dL Glucose 119 H (75-100) mg/dL POC Glucose 114 H (70-105) Calcium 8.1 L (8.4-10.2) mg/dL Phosphorus 5.10 H (2.5-4.5) mg/dL
--- NOTE | 2018-06-07 16:16 | Progress Note ---
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 Hypertensive urgency, Sinus tachycardia with HR 160s CTA negative for PE Hyperkalemia Hypernatrmia Metabolic acidosis Acute blood loss anemia Moderate to severe protein calorie malnutrition - continue supplemental oxygen to keep sats > 90% - NIPPV prn for work of breathing -discussed fluid management with renal service, avoid over-hydration in view of respiratory status -prn CXR, may need thoracentesis - continue bronchodilators with pulmonary hygiene per RT - HD/UF for toxin and volume clearance - continue anti-infective's per ID recs - continue TPN , enteral feeding per surgery service - Malignancy per heme-oncologist - continue mobility protocol for pressure ulcer prevention -PT/OT - s/p surgery 05/26 (had ex-lap; matted abdominal organs, pus - Enterostomy tube decompression,loop colostomy and large triple lumen sump drainage of pelvis) - s/p bilateral nephrostomy tubes placed 05/14/[address] Freeman.(CTA negative for P.E.) - continue other care per attending / other consultants -discharge planning...probably SNF to complete antibiotics and for low level rehab Full code status Subjective Date of service: 06/07/18 Principal diagnosis: sq ca - pelvic mass Interval history: Patient is seen today for: Acute Hypoxemic Resp Failure; Sepsis Syndrome; Acute VTE; Prostate Cancer Seen and examined. vitals, labs, medications, chart reviewed.; 24hour events reviewed; nursing and respiratory care staff consulted; no adverse overnight events reported to me; Objective Vital Signs - 12hr 06/07/18 06/07/18 06/07/18 04:27 05:30 08:29 Temperature 98.2 F 98.5 F Pulse Rate 81 85 102 H Pulse Rate [ Intra-Procedure ] Pulse Rate [ Post-Procedure] Pulse Rate [Pre -Procedure] Respiratory 18 18 Rate Respiratory Rate [Intra- Procedure] Respiratory Rate [Post- Procedure] Respiratory Rate [Pre- Procedure] Blood Pressure 170/98 170/98 157/102 Blood Pressure [Intra- Procedure] Blood Pressure [Post-Procedure ] Blood Pressure [Pre-Procedure] O2 Sat by Pulse 96 100 Oximetry O2 Sat by Pulse Oximetry [ Intra-Procedure ] O2 Sat by Pulse Oximetry [Post -Procedure] O2 Sat by Pulse Oximetry [Pre- Procedure] 06/07/18 06/07/18 06/07/18 09:11 09:34 09:36 Temperature Pulse Rate 89 91 H Pulse Rate [ Intra-Procedure ] Pulse Rate [ Post-Procedure] Pulse Rate [Pre -Procedure] Respiratory 20 Rate Respiratory Rate [Intra- Procedure] Respiratory Rate [Post- Procedure] Respiratory Rate [Pre- Procedure] Blood Pressure 181/134 Blood Pressure [Intra- Procedure] Blood Pressure [Post-Procedure ] Blood Pressure [Pre-Procedure] O2 Sat by Pulse 100 99 100 Oximetry O2 Sat by Pulse Oximetry [ Intra-Procedure ] O2 Sat by Pulse Oximetry [Post -Procedure] O2 Sat by Pulse Oximetry [Pre- Procedure] 06/07/18 06/07/18 06/07/18 11:44 11:48 12:30 Temperature Pulse Rate 86 91 H 112 H Pulse Rate [ Intra-Procedure ] Pulse Rate [ Post-Procedure] Pulse Rate [Pre -Procedure] Respiratory 18 Rate Respiratory Rate [Intra- Procedure] Respiratory Rate [Post- Procedure] Respiratory Rate [Pre- Procedure] Blood Pressure 167/95 Blood Pressure [Intra- Procedure] Blood Pressure [Post-Procedure ] Blood Pressure [Pre-Procedure] O2 Sat by Pulse 96 95 Oximetry O2 Sat by Pulse Oximetry [ Intra-Procedure ] O2 Sat by Pulse Oximetry [Post -Procedure] O2 Sat by Pulse Oximetry [Pre- Procedure] 06/07/18 06/07/18 06/07/18 15:00 15:33 15:35 Temperature Pulse Rate Pulse Rate [ 99 H 110 H Intra-Procedure ] Pulse Rate [ Post-Procedure] Pulse Rate [Pre 94 H -Procedure] Respiratory Rate Respiratory 31 H 28 H Rate [Intra- Procedure] Respiratory Rate [Post- Procedure] Respiratory 20 Rate [Pre- Procedure] Blood Pressure Blood Pressure 158/104 147/95 [Intra- Procedure] Blood Pressure [Post-Procedure ] Blood Pressure 165/99 [Pre-Procedure] O2 Sat by Pulse Oximetry O2 Sat by Pulse 100 100 Oximetry [ Intra-Procedure ] O2 Sat by Pulse Oximetry [Post -Procedure] O2 Sat by Pulse 100 Oximetry [Pre- Procedure] 06/07/18 06/07/18 06/07/18 15:40 15:41 15:54 Temperature Pulse Rate Pulse Rate [ 116 H Intra-Procedure ] Pulse Rate [ 111 H 116 H Post-Procedure] Pulse Rate [Pre -Procedure] Respiratory Rate Respiratory 30 H Rate [Intra- Procedure] Respiratory 22 29 H Rate [Post- Procedure] Respiratory Rate [Pre- Procedure] Blood Pressure Blood Pressure 145/95 [Intra- Procedure] Blood Pressure 150/91 146/98 [Post-Procedure ] Blood Pressure [Pre-Procedure] O2 Sat by Pulse Oximetry O2 Sat by Pulse 100 Oximetry [ Intra-Procedure ] O2 Sat by Pulse 100 100 Oximetry [Post -Procedure] O2 Sat by Pulse Oximetry [Pre- Procedure] 06/07/18 16:06 Temperature Pulse Rate Pulse Rate [ Intra-Procedure ] Pulse Rate [ 126 H Post-Procedure] Pulse Rate [Pre -Procedure] Respiratory Rate Respiratory Rate [Intra- Procedure] Respiratory 25 H Rate [Post- Procedure] Respiratory Rate [Pre- Procedure] Blood Pressure Blood Pressure [Intra- Procedure] Blood Pressure 138/84 [Post-Procedure ] Blood Pressure [Pre-Procedure] O2 Sat by Pulse Oximetry O2 Sat by Pulse Oximetry [ Intra-Procedure ] O2 Sat by Pulse 100 Oximetry [Post -Procedure] O2 Sat by Pulse Oximetry [Pre- Procedure] Constitutional: no acute distress, alert, other (chronically ill looking middle aged AAM, normocephalic and atraumatic, ) Eyes: non-icteric ENT: oropharynx moist Neck: supple, no lymphadenopathy, no JVD, other (no thyromegaly) Effort: mildly labored Ascultation: Bilateral: diminished breath sounds, rhonchi (scant in bases) Percussion: Bilateral: not dull Cardiovascular: regular rate and rhythm, other (No R/M) Gastrointestinal: hypoactive bowel sounds, soft, tender (mild), other (Distended ; No palpable HSM, bilateral nephrostomy tubes,Colostomy, ZAKI drain) Integumentary: other (femoral vascath) Extremities: no cyanosis, no edema, pulses normal, no ischemia or petechiae Neurologic: normal mental status, non-focal exam, pupils equal and round, other (weak) Psychiatric: mood appropriate, affect normal CBC and BMP: 06/12/18 04:12 06/13/18 05:59 ABG, PT/INR, D-dimer: ABG POC ABG pH 7.362 (7.35-7.45) 05/31/18 09:58 POC ABG pCO2 36.4 (35-45) 05/31/18 09:58 POC ABG pO2 101 (80-105) 05/31/18 09:58 POC ABG HCO3 20.7 05/31/18 09:58 POC ABG Total CO2 22 05/31/18 09:58 POC ABG O2 Sat 98 05/31/18 09:58 PT/INR, D-dimer PT 17.1 Sec. (12.2-14.9) H 06/03/18 09:18 INR 1.34 (0.87-1.13) H 06/03/18 09:18 Abnormal lab findings: Abnormal Labs 05/13/18 05/13/18 05/13/18 04:27 04:27 19:39 WBC RBC 3.13 L Hgb 9.4 L Hct 26.8 L MCHC 35 H RDW Plt Count Lymph % (Auto) [place] % (Auto) 9.6 H Lymph # [place] # Seg Neutrophils % Seg Neuts % (Manual) Lymphocytes % (Manual) Seg Neutrophils # Seg Neutrophils # Man Lymphocytes # (Manual) PT INR APTT POC ABG pH POC ABG pCO2 POC ABG pO2 Sodium 132 L Potassium 5.5 H Chloride 94.1 L Carbon Dioxide 19 L BUN 72 H Creatinine 14.4 H Glucose POC Glucose Lactic Acid Calcium Phosphorus Magnesium Iron TIBC AST ALT Alkaline Phosphatase Total Creatine Kinase C-Reactive Protein Total Protein Albumin 2.8 L Folate PTH Intact Urine WBC (Auto) Urine Creatinine 66.0 H Urine Chloride 27.8 L Urine Total Protein 24 H Vancomycin Trough Miscellaneous Test Crossmatch 05/13/18 05/14/18 05/14/18 20:00 05:05 05:05 WBC RBC Hgb Hct MCHC RDW Plt Count Lymph % (Auto) [place] % (Auto) Lymph # [place] # Seg Neutrophils % Seg Neuts % (Manual) Lymphocytes % (Manual) Seg Neutrophils # Seg Neutrophils # Man Lymphocytes # (Manual) PT INR APTT POC ABG pH POC ABG pCO2 POC ABG pO2 Sodium 132 L 131 L Potassium 5.2 H 5.8 H Chloride 93.0 L 95.6 L Carbon Dioxide 19 L 20 L BUN 74 H 81 H Creatinine 15.0 H 16.6 H Glucose 134 H 127 H POC Glucose Lactic Acid Calcium 8.2 L 7.9 L Phosphorus 6.30 H Magnesium Iron TIBC AST ALT Alkaline Phosphatase Total Creatine Kinase 236 H C-Reactive Protein Total Protein Albumin Folate PTH Intact 65.37 H Urine WBC (Auto) Urine Creatinine Urine Chloride Urine Total Protein Vancomycin Trough Miscellaneous Test Crossmatch 05/14/18 05/14/18 05/14/18 09:28 10:56 13:29 WBC RBC Hgb Hct MCHC RDW Plt Count Lymph % (Auto) [place] % (Auto) Lymph # [place] # Seg Neutrophils % Seg Neuts % (Manual) Lymphocytes % (Manual) Seg Neutrophils # Seg Neutrophils # Man Lymphocytes # (Manual) PT INR APTT 38.2 H POC ABG pH POC ABG pCO2 POC ABG pO2 Sodium Potassium Chloride Carbon Dioxide BUN Creatinine Glucose POC Glucose 127 H 126 H Lactic Acid Calcium Phosphorus Magnesium Iron TIBC AST ALT Alkaline Phosphatase Total Creatine Kinase C-Reactive Protein Total Protein Albumin Folate PTH Intact Urine WBC (Auto) Urine Creatinine Urine Chloride Urine Total Protein Vancomycin Trough Miscellaneous Test Crossmatch 05/15/18 05/15/18 05/16/18 08:06 08:06 07:02 WBC RBC 2.84 L 2.74 L Hgb 8.5 L 8.5 L Hct 24.2 L 23.5 L MCHC 35 H 36 H RDW Plt Count Lymph % (Auto) [place] % (Auto) 10.4 H 11.0 H Lymph # 1.1 L [place] # 0.9 H Seg Neutrophils % 72.6 H Seg Neuts % (Manual) Lymphocytes % (Manual) Seg Neutrophils # Seg Neutrophils # Man Lymphocytes # (Manual) PT INR APTT POC ABG pH POC ABG pCO2 POC ABG pO2 Sodium Potassium Chloride Carbon Dioxide 19 L BUN 66 H Creatinine 12.0 H Glucose 115 H POC Glucose Lactic Acid Calcium 8.1 L Phosphorus Magnesium Iron TIBC AST ALT Alkaline Phosphatase Total Creatine Kinase C-Reactive Protein Total Protein Albumin Folate PTH Intact Urine WBC (Auto) Urine Creatinine Urine Chloride Urine Total Protein Vancomycin Trough Miscellaneous Test Crossmatch 05/16/18 05/16/18 05/17/18 07:02 07:02 05:08 WBC RBC 2.78 L Hgb 8.2 L Hct 23.9 L MCHC RDW Plt Count Lymph % (Auto) [place] % (Auto) 13.9 H Lymph # [place] # 0.9 H Seg Neutrophils % Seg Neuts % (Manual) Lymphocytes % (Manual) Seg Neutrophils # Seg Neutrophils # Man Lymphocytes # (Manual) PT INR APTT POC ABG pH POC ABG pCO2 POC ABG pO2 Sodium Potassium Chloride Carbon Dioxide BUN 28 H Creatinine 2.4 H D Glucose POC Glucose Lactic Acid Calcium 8.3 L Phosphorus Magnesium 1.50 L Iron 24 L TIBC 160 L AST ALT Alkaline Phosphatase Total Creatine Kinase C-Reactive Protein Total Protein Albumin Folate 5.39 L PTH Intact Urine WBC (Auto) Urine Creatinine Urine Chloride Urine Total Protein Vancomycin Trough Miscellaneous Test Crossmatch 05/17/18 05/18/18 05/18/18 05:08 05:57 05:57 WBC RBC 2.79 L Hgb 8.3 L Hct 24.0 L MCHC 35 H RDW Plt Count Lymph % (Auto) [place] % (Auto) 11.8 H Lymph # [place] # 0.9 H Seg Neutrophils % Seg Neuts % (Manual) Lymphocytes % (Manual) Seg Neutrophils # Seg Neutrophils # Man Lymphocytes # (Manual) PT INR APTT POC ABG pH POC ABG pCO2 POC ABG pO2 Sodium Potassium Chloride Carbon Dioxide BUN Creatinine Glucose POC Glucose Lactic Acid Calcium 7.7 L 8.0 L Phosphorus Magnesium 1.60 L Iron TIBC AST ALT Alkaline Phosphatase Total Creatine Kinase C-Reactive Protein Total Protein Albumin Folate PTH Intact Urine WBC (Auto) Urine Creatinine Urine Chloride Urine Total Protein Vancomycin Trough Miscellaneous Test Crossmatch 05/19/18 05/19/18 05/20/18 05:33 05:33 05:38 WBC RBC 2.95 L Hgb 8.8 L Hct 25.8 L MCHC RDW Plt Count Lymph % (Auto) 10.1 L [place] % (Auto) Lymph # 1.1 L [place] # Seg Neutrophils % 85.2 H Seg Neuts % (Manual) Lymphocytes % (Manual) Seg Neutrophils # 9.0 H Seg Neutrophils # Man Lymphocytes # (Manual) PT INR APTT POC ABG pH POC ABG pCO2 POC ABG pO2 Sodium 135 L Potassium Chloride Carbon Dioxide BUN Creatinine Glucose 132 H POC Glucose Lactic Acid Calcium 7.8 L 8.3 L Phosphorus Magnesium 1.40 L Iron TIBC AST ALT Alkaline Phosphatase Total Creatine Kinase C-Reactive Protein Total Protein Albumin Folate PTH Intact Urine WBC (Auto) Urine Creatinine Urine Chloride Urine Total Protein Vancomycin Trough Miscellaneous Test Crossmatch 05/21/18 05/21/18 05/22/18 04:46 15:30 06:49 WBC 20.0 H RBC 2.70 L Hgb 7.8 L Hct 23.3 L MCHC RDW Plt Count Lymph % (Auto) [place] % (Auto) Lymph # [place] # Seg Neutrophils % Seg Neuts % (Manual) 85.0 H Lymphocytes % (Manual) 4.0 L Seg Neutrophils # Seg Neutrophils # Man 17.0 H Lymphocytes # (Manual) 0.8 L PT INR APTT POC ABG pH POC ABG pCO2 POC ABG pO2 Sodium 135 L Potassium 3.5 L Chloride Carbon Dioxide 21 L BUN 22 H Creatinine Glucose POC Glucose Lactic Acid Calcium 8.1 L Phosphorus Magnesium Iron TIBC AST ALT Alkaline Phosphatase Total Creatine Kinase C-Reactive Protein Total Protein Albumin Folate PTH Intact Urine WBC (Auto) 28.0 H Urine Creatinine Urine Chloride Urine Total Protein Vancomycin Trough Miscellaneous Test Crossmatch 05/22/18 05/22/18 05/23/18 06:49 11:23 09:03 WBC RBC Hgb Hct MCHC RDW Plt Count Lymph % (Auto) [place] % (Auto) Lymph # [place] # Seg Neutrophils % Seg Neuts % (Manual) Lymphocytes % (Manual) Seg Neutrophils # Seg Neutrophils # Man Lymphocytes # (Manual) PT INR APTT POC ABG pH POC ABG pCO2 POC ABG pO2 Sodium 134 L Potassium 3.5 L Chloride Carbon Dioxide 21 L BUN 35 H 36 H Creatinine 1.7 H Glucose 107 H POC Glucose Lactic Acid Calcium 7.9 L Phosphorus Magnesium 2.50 H Iron TIBC AST ALT Alkaline Phosphatase Total Creatine Kinase C-Reactive Protein Total Protein Albumin Folate PTH Intact Urine WBC (Auto) Urine Creatinine Urine Chloride Urine Total Protein Vancomycin Trough Miscellaneous Test Crossmatch See Detail 05/23/18 05/23/18 05/23/18 09:03 09:03 17:34 WBC 26.3 H RBC 3.57 L Hgb 10.4 L Hct 31.1 L D MCHC RDW Plt Count Lymph % (Auto) [place] % (Auto) Lymph # [place] # Seg Neutrophils % Seg Neuts % (Manual) Lymphocytes % (Manual) Seg Neutrophils # Seg Neutrophils # Man Lymphocytes # (Manual) PT 18.3 H INR 1.43 H APTT 40.0 H POC ABG pH POC ABG pCO2 POC ABG pO2 Sodium Potassium Chloride Carbon Dioxide BUN Creatinine Glucose POC Glucose 108 H Lactic Acid Calcium Phosphorus Magnesium Iron TIBC AST ALT Alkaline Phosphatase Total Creatine Kinase C-Reactive Protein Total Protein Albumin Folate PTH Intact Urine WBC (Auto) Urine Creatinine Urine Chloride Urine Total Protein Vancomycin Trough Miscellaneous Test Crossmatch 05/23/18 05/24/18 05/24/18 21:14 04:43 08:04 WBC RBC Hgb Hct MCHC RDW Plt Count Lymph % (Auto) [place] % (Auto) Lymph # [place] # Seg Neutrophils % Seg Neuts % (Manual) Lymphocytes % (Manual) Seg Neutrophils # Seg Neutrophils # Man Lymphocytes # (Manual) PT INR APTT POC ABG pH POC ABG pCO2 POC ABG pO2 Sodium 146 H Potassium Chloride 108.6 H Carbon Dioxide BUN 33 H Creatinine Glucose 109 H POC Glucose 110 H 106 H Lactic Acid Calcium 8.3 L Phosphorus Magnesium 2.50 H Iron TIBC AST ALT Alkaline Phosphatase Total Creatine Kinase C-Reactive Protein Total Protein Albumin Folate PTH Intact Urine WBC (Auto) Urine Creatinine Urine Chloride Urine Total Protein Vancomycin Trough Miscellaneous Test Crossmatch 05/25/18 05/25/18 05/25/18 05:42 05:49 19:50 WBC RBC Hgb Hct MCHC RDW Plt Count Lymph % (Auto) [place] % (Auto) Lymph # [place] # Seg Neutrophils % Seg Neuts % (Manual) Lymphocytes % (Manual) Seg Neutrophils # Seg Neutrophils # Man Lymphocytes # (Manual) PT INR APTT POC ABG pH POC ABG pCO2 POC ABG pO2 Sodium 150 H Potassium Chloride 112.5 H Carbon Dioxide BUN 34 H Creatinine Glucose 102 H POC Glucose 107 H Lactic Acid Calcium Phosphorus Magnesium Iron TIBC AST ALT Alkaline Phosphatase Total Creatine Kinase C-Reactive Protein 34.50 H Total Protein Albumin Folate PTH Intact Urine WBC (Auto) Urine Creatinine Urine Chloride Urine Total Protein Vancomycin Trough Miscellaneous Test Crossmatch 05/25/18 05/25/18 05/25/18 19:50 21:05 22:46 WBC RBC Hgb Hct MCHC RDW Plt Count Lymph % (Auto) [place] % (Auto) Lymph # [place] # Seg Neutrophils % Seg Neuts % (Manual) Lymphocytes % (Manual) Seg Neutrophils # Seg Neutrophils # Man Lymphocytes # (Manual) PT INR APTT POC ABG pH 7.483 H POC ABG pCO2 24.0 L POC ABG pO2 72 L Sodium Potassium Chloride Carbon Dioxide BUN Creatinine Glucose POC Glucose Lactic Acid 5.90 H* Calcium Phosphorus Magnesium Iron TIBC AST ALT Alkaline Phosphatase Total Creatine Kinase C-Reactive Protein Total Protein Albumin Folate PTH Intact Urine WBC (Auto) Urine Creatinine Urine Chloride Urine Total Protein Vancomycin Trough 25.1 H Miscellaneous Test Crossmatch 05/25/18 05/26/18 05/26/18 22:46 00:21 00:51 WBC RBC Hgb Hct MCHC RDW Plt Count Lymph % (Auto) [place] % (Auto) Lymph # [place] # Seg Neutrophils % Seg Neuts % (Manual) Lymphocytes % (Manual) Seg Neutrophils # Seg Neutrophils # Man Lymphocytes # (Manual) PT INR APTT POC ABG pH POC ABG pCO2 POC ABG pO2 Sodium Potassium Chloride Carbon Dioxide BUN Creatinine Glucose POC Glucose 133 H Lactic Acid 8.10 H* 6.20 H* Calcium Phosphorus Magnesium Iron TIBC AST ALT Alkaline Phosphatase Total Creatine Kinase C-Reactive Protein Total Protein Albumin Folate PTH Intact Urine WBC (Auto) Urine Creatinine Urine Chloride Urine Total Protein Vancomycin Trough Miscellaneous Test Crossmatch 05/26/18 05/26/18 05/26/18 01:13 02:24 02:24 WBC 18.7 H RBC Hgb 11.6 L Hct MCHC RDW Plt Count Lymph % (Auto) [place] % (Auto) Lymph # [place] # Seg Neutrophils % Seg Neuts % (Manual) Lymphocytes % (Manual) Seg Neutrophils # Seg Neutrophils # Man Lymphocytes # (Manual) PT INR APTT POC ABG pH POC ABG pCO2 POC ABG pO2 Sodium 147 H Potassium 6.2 H* D Chloride 111.9 H Carbon Dioxide 19 L BUN 80 H Creatinine 5.1 H D Glucose 112 H POC Glucose Lactic Acid 5.20 H* Calcium 6.7 L D Phosphorus Magnesium Iron TIBC AST ALT Alkaline Phosphatase Total Creatine Kinase C-Reactive Protein Total Protein Albumin Folate PTH Intact Urine WBC (Auto) Urine Creatinine Urine Chloride Urine Total Protein Vancomycin Trough Miscellaneous Test Crossmatch 05/26/18 05/26/18 05/26/18 04:20 04:20 05:39 WBC RBC Hgb Hct MCHC RDW Plt Count Lymph % (Auto) [place] % (Auto) Lymph # [place] # Seg Neutrophils % Seg Neuts % (Manual) Lymphocytes % (Manual) Seg Neutrophils # Seg Neutrophils # Man Lymphocytes # (Manual) PT INR APTT POC ABG pH POC ABG pCO2 POC ABG pO2 Sodium 150 H Potassium Chloride 110.0 H Carbon Dioxide 19 L BUN 66 H Creatinine Glucose 166 H POC Glucose 187 H Lactic Acid 5.10 H* Calcium 6.9 L Phosphorus 6.70 H D Magnesium Iron TIBC AST ALT Alkaline Phosphatase Total Creatine Kinase C-Reactive Protein Total Protein Albumin Folate PTH Intact Urine WBC (Auto) Urine Creatinine Urine Chloride Urine Total Protein Vancomycin Trough Miscellaneous Test Crossmatch 05/26/18 05/26/18 05/26/18 06:02 07:29 11:00 WBC RBC Hgb Hct MCHC RDW Plt Count Lymph % (Auto) [place] % (Auto) Lymph # [place] # Seg Neutrophils % Seg Neuts % (Manual) Lymphocytes % (Manual) Seg Neutrophils # Seg Neutrophils # Man Lymphocytes # (Manual) PT INR APTT POC ABG pH POC ABG pCO2 28.8 L POC ABG pO2 Sodium Potassium Chloride Carbon Dioxide BUN Creatinine Glucose POC Glucose Lactic Acid 4.80 H* 3.80 H* Calcium Phosphorus Magnesium Iron TIBC AST ALT Alkaline Phosphatase Total Creatine Kinase C-Reactive Protein Total Protein Albumin Folate PTH Intact Urine WBC (Auto) Urine Creatinine Urine Chloride Urine Total Protein Vancomycin Trough Miscellaneous Test Crossmatch 05/26/18 05/26/18 05/26/18 11:01 12:28 18:00 WBC RBC Hgb Hct MCHC RDW Plt Count Lymph % (Auto) [place] % (Auto) Lymph # [place] # Seg Neutrophils % Seg Neuts % (Manual) Lymphocytes % (Manual) Seg Neutrophils # Seg Neutrophils # Man Lymphocytes # (Manual) PT INR APTT POC ABG pH POC ABG pCO2 POC ABG pO2 Sodium 150 H 151 H Potassium 5.3 H D 6.1 H* Chloride 110.3 H 117.0 H Carbon Dioxide 21 L 20 L BUN 75 H 77 H Creatinine 4.3 H D 4.6 H Glucose 161 H POC Glucose 114 H Lactic Acid Calcium 7.5 L 6.7 L Phosphorus Magnesium Iron TIBC AST 1041 H ALT 406 H Alkaline Phosphatase 281 H Total Creatine Kinase C-Reactive Protein Total Protein 4.4 L Albumin 1.3 L Folate PTH Intact Urine WBC (Auto) Urine Creatinine Urine Chloride Urine Total Protein Vancomycin Trough Miscellaneous Test Crossmatch 05/26/18 05/26/18 05/27/18 18:02 19:17 01:01 WBC 21.7 H RBC 2.70 L Hgb 7.8 L D Hct 24.6 L D MCHC RDW 15.3 H Plt Count Lymph % (Auto) [place] % (Auto) Lymph # [place] # Seg Neutrophils % Seg Neuts % (Manual) 94.0 H Lymphocytes % (Manual) 3.0 L Seg Neutrophils # Seg Neutrophils # Man 20.4 H Lymphocytes # (Manual) 0.7 L PT INR APTT POC ABG pH 7.159 L 7.205 L POC ABG pCO2 54.5 H 53.0 H POC ABG pO2 252 H Sodium Potassium Chloride Carbon Dioxide BUN Creatinine Glucose POC Glucose Lactic Acid Calcium Phosphorus Magnesium Iron TIBC AST ALT Alkaline Phosphatase Total Creatine Kinase C-Reactive Protein Total Protein Albumin Folate PTH Intact Urine WBC (Auto) Urine Creatinine Urine Chloride Urine Total Protein Vancomycin Trough Miscellaneous Test Crossmatch 05/27/18 05/27/18 05/27/18 05:15 05:15 06:11 WBC 24.9 H RBC 2.86 L Hgb 8.1 L Hct 25.9 L MCHC RDW 15.5 H Plt Count Lymph % (Auto) [place] % (Auto) Lymph # [place] # Seg Neutrophils % Seg Neuts % (Manual) Lymphocytes % (Manual) Seg Neutrophils # Seg Neutrophils # Man Lymphocytes # (Manual) PT INR APTT POC ABG pH 7.265 L POC ABG pCO2 46.2 H POC ABG pO2 111 H Sodium 149 H Potassium 6.9 H* Chloride 113.5 H Carbon Dioxide BUN 89 H Creatinine 5.2 H Glucose 118 H POC Glucose Lactic Acid Calcium 7.0 L Phosphorus 9.70 H D Magnesium Iron TIBC AST 876 H ALT 408 H Alkaline Phosphatase Total Creatine Kinase C-Reactive Protein Total Protein 5.2 L Albumin 1.5 L Folate PTH Intact Urine WBC (Auto) Urine Creatinine Urine Chloride Urine Total Protein Vancomycin Trough Miscellaneous Test Crossmatch 05/27/18 05/27/18 05/27/18 08:48 10:22 10:22 WBC RBC Hgb Hct MCHC RDW Plt Count Lymph % (Auto) [place] % (Auto) Lymph # [place] # Seg Neutrophils % Seg Neuts % (Manual) Lymphocytes % (Manual) Seg Neutrophils # Seg Neutrophils # Man Lymphocytes # (Manual) PT INR APTT POC ABG pH POC ABG pCO2 POC ABG pO2 Sodium 146 H Potassium 6.1 H* Chloride 108.2 H Carbon Dioxide 21 L BUN 88 H Creatinine 5.6 H Glucose 163 H POC Glucose 164 H Lactic Acid Calcium 6.7 L Phosphorus Magnesium Iron TIBC AST ALT Alkaline Phosphatase Total Creatine Kinase C-Reactive Protein 40.70 H Total Protein Albumin Folate PTH Intact Urine WBC (Auto) Urine Creatinine Urine Chloride Urine Total Protein Vancomycin Trough Miscellaneous Test Crossmatch 05/27/18 05/27/18 05/27/18 13:02 17:39 23:27 WBC RBC Hgb Hct MCHC RDW Plt Count Lymph % (Auto) [place] % (Auto) Lymph # [place] # Seg Neutrophils % Seg Neuts % (Manual) Lymphocytes % (Manual) Seg Neutrophils # Seg Neutrophils # Man Lymphocytes # (Manual) PT INR APTT POC ABG pH POC ABG pCO2 POC ABG pO2 Sodium Potassium Chloride Carbon Dioxide BUN Creatinine Glucose POC Glucose 59 L 132 H Lactic Acid Calcium Phosphorus Magnesium Iron TIBC AST ALT Alkaline Phosphatase Total Creatine Kinase C-Reactive Protein Total Protein Albumin Folate PTH Intact Urine WBC (Auto) Urine Creatinine Urine Chloride Urine Total Protein Vancomycin Trough Miscellaneous Test Flexitest 1 H Crossmatch 05/27/18 05/28/18 05/28/18 Unknown 04:32 05:00 WBC RBC Hgb Hct MCHC RDW Plt Count Lymph % (Auto) [place] % (Auto) Lymph # [place] # Seg Neutrophils % Seg Neuts % (Manual) Lymphocytes % (Manual) Seg Neutrophils # Seg Neutrophils # Man Lymphocytes # (Manual) PT INR APTT POC ABG pH POC ABG pCO2 POC ABG pO2 134 H Sodium Potassium Chloride Carbon Dioxide BUN 69 H Creatinine 4.4 H Glucose 118 H POC Glucose Lactic Acid Calcium 8.0 L D Phosphorus 6.80 H D Magnesium Iron TIBC AST ALT Alkaline Phosphatase Total Creatine Kinase C-Reactive Protein Total Protein Albumin Folate PTH Intact Urine WBC (Auto) 120.0 H Urine Creatinine Urine Chloride Urine Total Protein Vancomycin Trough Miscellaneous Test Crossmatch 05/28/18 05/28/18 05/28/18 05:00 05:27 13:04 WBC 26.5 H RBC 2.69 L Hgb 7.7 L Hct 23.6 L MCHC RDW Plt Count Lymph % (Auto) [place] % (Auto) Lymph # [place] # Seg Neutrophils % Seg Neuts % (Manual) 96.0 H Lymphocytes % (Manual) 0 L Seg Neutrophils # Seg Neutrophils # Man 25.4 H Lymphocytes # (Manual) 0.0 L PT INR APTT POC ABG pH POC ABG pCO2 POC ABG pO2 Sodium Potassium Chloride Carbon Dioxide BUN Creatinine Glucose POC Glucose 128 H 155 H Lactic Acid Calcium Phosphorus Magnesium Iron TIBC AST ALT Alkaline Phosphatase Total Creatine Kinase C-Reactive Protein Total Protein Albumin Folate PTH Intact Urine WBC (Auto) Urine Creatinine Urine Chloride Urine Total Protein Vancomycin Trough Miscellaneous Test Crossmatch 05/28/18 05/29/18 05/29/18 17:56 03:35 04:00 WBC RBC Hgb Hct MCHC RDW Plt Count Lymph % (Auto) [place] % (Auto) Lymph # [place] # Seg Neutrophils % Seg Neuts % (Manual) Lymphocytes % (Manual) Seg Neutrophils # Seg Neutrophils # Man Lymphocytes # (Manual) PT INR APTT POC ABG pH 7.471 H POC ABG pCO2 POC ABG pO2 78 L Sodium Potassium Chloride Carbon Dioxide BUN 50 H Creatinine 3.9 H Glucose POC Glucose 110 H Lactic Acid Calcium 7.7 L Phosphorus Magnesium 1.50 L Iron TIBC AST 218 H ALT 204 H Alkaline Phosphatase Total Creatine Kinase C-Reactive Protein Total Protein 5.4 L Albumin 1.6 L Folate PTH Intact Urine WBC (Auto) Urine Creatinine Urine Chloride Urine Total Protein Vancomycin Trough Miscellaneous Test Crossmatch 05/29/18 05/29/18 05/30/18 11:51 23:56 04:54 WBC RBC Hgb Hct MCHC RDW Plt Count Lymph % (Auto) [place] % (Auto) Lymph # [place] # Seg Neutrophils % Seg Neuts % (Manual) Lymphocytes % (Manual) Seg Neutrophils # Seg Neutrophils # Man Lymphocytes # (Manual) PT INR APTT POC ABG pH POC ABG pCO2 POC ABG pO2 Sodium Potassium Chloride Carbon Dioxide BUN Creatinine Glucose POC Glucose 131 H 119 H 115 H Lactic Acid Calcium Phosphorus Magnesium Iron TIBC AST ALT Alkaline Phosphatase Total Creatine Kinase C-Reactive Protein Total Protein Albumin Folate PTH Intact Urine WBC (Auto) Urine Creatinine Urine Chloride Urine Total Protein Vancomycin Trough Miscellaneous Test Crossmatch 05/30/18 05/30/18 05/30/18 05:07 05:15 05:15 WBC 16.2 H RBC 2.53 L Hgb 7.4 L Hct 21.9 L MCHC RDW Plt Count Lymph % (Auto) [place] % (Auto) Lymph # [place] # Seg Neutrophils % Seg Neuts % (Manual) Lymphocytes % (Manual) Seg Neutrophils # Seg Neutrophils # Man Lymphocytes # (Manual) PT INR APTT POC ABG pH POC ABG pCO2 34.5 L POC ABG pO2 133 H Sodium 135 L Potassium Chloride 97.5 L Carbon Dioxide BUN 69 H Creatinine 5.4 H Glucose 105 H POC Glucose Lactic Acid Calcium 7.5 L Phosphorus 5.30 H D Magnesium Iron TIBC AST ALT Alkaline Phosphatase Total Creatine Kinase C-Reactive Protein Total Protein Albumin Folate PTH Intact Urine WBC (Auto) Urine Creatinine Urine Chloride Urine Total Protein Vancomycin Trough Miscellaneous Test Crossmatch 05/30/18 05/30/18 05/31/18 12:13 17:10 04:50 WBC 18.7 H RBC 2.86 L Hgb 8.2 L Hct 24.8 L MCHC RDW Plt Count Lymph % (Auto) [place] % (Auto) Lymph # [place] # Seg Neutrophils % Seg Neuts % (Manual) 91.0 H Lymphocytes % (Manual) 2.0 L Seg Neutrophils # Seg Neutrophils # Man 17.0 H Lymphocytes # (Manual) 0.4 L PT INR APTT POC ABG pH POC ABG pCO2 POC ABG pO2 Sodium Potassium Chloride Carbon Dioxide BUN Creatinine Glucose POC Glucose 132 H 122 H Lactic Acid Calcium Phosphorus Magnesium Iron TIBC AST ALT Alkaline Phosphatase Total Creatine Kinase C-Reactive Protein Total Protein Albumin Folate PTH Intact Urine WBC (Auto) Urine Creatinine Urine Chloride Urine Total Protein Vancomycin Trough Miscellaneous Test Crossmatch 05/31/18 05/31/18 05/31/18 04:50 05:45 11:37 WBC RBC Hgb Hct MCHC RDW Plt Count Lymph % (Auto) [place] % (Auto) Lymph # [place] # Seg Neutrophils % Seg Neuts % (Manual) Lymphocytes % (Manual) Seg Neutrophils # Seg Neutrophils # Man Lymphocytes # (Manual) PT INR APTT POC ABG pH POC ABG pCO2 POC ABG pO2 Sodium 132 L Potassium Chloride 92.4 L Carbon Dioxide BUN 77 H Creatinine 5.9 H Glucose POC Glucose 111 H 136 H Lactic Acid Calcium 7.3 L Phosphorus 6.40 H D Magnesium Iron TIBC AST ALT Alkaline Phosphatase Total Creatine Kinase C-Reactive Protein Total Protein Albumin Folate PTH Intact Urine WBC (Auto) Urine Creatinine Urine Chloride Urine Total Protein Vancomycin Trough Miscellaneous Test Crossmatch 05/31/18 06/01/18 06/01/18 17:52 00:09 04:00 WBC RBC Hgb Hct MCHC RDW Plt Count Lymph % (Auto) [place] % (Auto) Lymph # [place] # Seg Neutrophils % Seg Neuts % (Manual) Lymphocytes % (Manual) Seg Neutrophils # Seg Neutrophils # Man Lymphocytes # (Manual) PT INR APTT POC ABG pH POC ABG pCO2 POC ABG pO2 Sodium Potassium Chloride 97.5 L Carbon Dioxide BUN 49 H Creatinine 4.2 H Glucose 104 H POC Glucose 115 H 114 H Lactic Acid Calcium 7.3 L Phosphorus 4.70 H D Magnesium Iron TIBC AST ALT Alkaline Phosphatase Total Creatine Kinase C-Reactive Protein Total Protein Albumin Folate PTH Intact Urine WBC (Auto) Urine Creatinine Urine Chloride Urine Total Protein Vancomycin Trough Miscellaneous Test Crossmatch 06/01/18 06/01/18 06/02/18 11:10 17:56 00:15 WBC RBC Hgb Hct MCHC RDW Plt Count Lymph % (Auto) [place] % (Auto) Lymph # [place] # Seg Neutrophils % Seg Neuts % (Manual) Lymphocytes % (Manual) Seg Neutrophils # Seg Neutrophils # Man Lymphocytes # (Manual) PT INR APTT POC ABG pH POC ABG pCO2 POC ABG pO2 Sodium Potassium Chloride Carbon Dioxide BUN Creatinine Glucose POC Glucose 123 H 126 H 135 H Lactic Acid Calcium Phosphorus Magnesium Iron TIBC AST ALT Alkaline Phosphatase Total Creatine Kinase C-Reactive Protein Total Protein Albumin Folate PTH Intact Urine WBC (Auto) Urine Creatinine Urine Chloride Urine Total Protein Vancomycin Trough Miscellaneous Test Crossmatch 06/02/18 06/02/18 06/02/18 05:23 12:42 13:05 WBC RBC Hgb Hct MCHC RDW Plt Count Lymph % (Auto) [place] % (Auto) Lymph # [place] # Seg Neutrophils % Seg Neuts % (Manual) Lymphocytes % (Manual) Seg Neutrophils # Seg Neutrophils # Man Lymphocytes # (Manual) PT 17.1 H INR 1.34 H APTT POC ABG pH POC ABG pCO2 POC ABG pO2 Sodium Potassium Chloride Carbon Dioxide BUN Creatinine Glucose POC Glucose 135 H 142 H Lactic Acid Calcium Phosphorus Magnesium Iron TIBC AST ALT Alkaline Phosphatase Total Creatine Kinase C-Reactive Protein Total Protein Albumin Folate PTH Intact Urine WBC (Auto) Urine Creatinine Urine Chloride Urine Total Protein Vancomycin Trough Miscellaneous Test Crossmatch 06/02/18 06/02/18 06/03/18 Unknown Unknown 00:54 WBC 20.8 H RBC 2.67 L Hgb 7.7 L Hct 23.0 L MCHC RDW Plt Count 500 H Lymph % (Auto) [place] % (Auto) Lymph # [place] # Seg Neutrophils % Seg Neuts % (Manual) Lymphocytes % (Manual) Seg Neutrophils # Seg Neutrophils # Man Lymphocytes # (Manual) PT INR APTT POC ABG pH POC ABG pCO2 POC ABG pO2 Sodium 136 L Potassium 3.5 L Chloride 96.9 L Carbon Dioxide BUN 62 H Creatinine 4.9 H Glucose 133 H POC Glucose 125 H Lactic Acid Calcium 7.2 L Phosphorus 5.00 H Magnesium Iron TIBC AST 46 H ALT 66 H Alkaline Phosphatase Total Creatine Kinase C-Reactive Protein Total Protein 5.7 L Albumin 1.5 L Folate PTH Intact Urine WBC (Auto) Urine Creatinine Urine Chloride Urine Total Protein Vancomycin Trough Miscellaneous Test Crossmatch 06/03/18 06/03/18 06/03/18 03:31 09:18 09:18 WBC RBC Hgb Hct MCHC RDW Plt Count Lymph % (Auto) [place] % (Auto) Lymph # [place] # Seg Neutrophils % Seg Neuts % (Manual) Lymphocytes % (Manual) Seg Neutrophils # Seg Neutrophils # Man Lymphocytes # (Manual) PT 17.1 H INR 1.34 H APTT POC ABG pH POC ABG pCO2 POC ABG pO2 Sodium 136 L Potassium Chloride Carbon Dioxide BUN 41 H Creatinine 3.4 H Glucose 129 H POC Glucose Lactic Acid Calcium 7.4 L Phosphorus Magnesium Iron TIBC AST ALT Alkaline Phosphatase Total Creatine Kinase C-Reactive Protein 11.10 H Total Protein Albumin Folate PTH Intact Urine WBC (Auto) Urine Creatinine Urine Chloride Urine Total Protein Vancomycin Trough Miscellaneous Test Crossmatch 06/03/18 06/03/18 06/04/18 16:07 21:18 04:31 WBC RBC Hgb Hct MCHC RDW Plt Count Lymph % (Auto) [place] % (Auto) Lymph # [place] # Seg Neutrophils % Seg Neuts % (Manual) Lymphocytes % (Manual) Seg Neutrophils # Seg Neutrophils # Man Lymphocytes # (Manual) PT INR APTT POC ABG pH POC ABG pCO2 POC ABG pO2 Sodium Potassium Chloride Carbon Dioxide BUN 55 H Creatinine 3.7 H Glucose 151 H POC Glucose 144 H 128 H Lactic Acid Calcium 7.8 L Phosphorus 4.60 H Magnesium Iron TIBC AST ALT Alkaline Phosphatase Total Creatine Kinase C-Reactive Protein Total Protein Albumin Folate PTH Intact Urine WBC (Auto) Urine Creatinine Urine Chloride Urine Total Protein Vancomycin Trough Miscellaneous Test Crossmatch 06/04/18 06/04/18 06/04/18 06:14 11:38 17:09 WBC RBC Hgb Hct MCHC RDW Plt Count Lymph % (Auto) [place] % (Auto) Lymph # [place] # Seg Neutrophils % Seg Neuts % (Manual) Lymphocytes % (Manual) Seg Neutrophils # Seg Neutrophils # Man Lymphocytes # (Manual) PT INR APTT POC ABG pH POC ABG pCO2 POC ABG pO2 Sodium Potassium Chloride Carbon Dioxide BUN Creatinine Glucose POC Glucose 145 H 129 H 142 H Lactic Acid Calcium Phosphorus Magnesium Iron TIBC AST ALT Alkaline Phosphatase Total Creatine Kinase C-Reactive Protein Total Protein Albumin Folate PTH Intact Urine WBC (Auto) Urine Creatinine Urine Chloride Urine Total Protein Vancomycin Trough Miscellaneous Test Crossmatch 06/04/18 06/04/18 06/05/18 20:00 21:29 06:30 WBC RBC Hgb 8.8 L Hct 27.3 L MCHC RDW Plt Count Lymph % (Auto) [place] % (Auto) Lymph # [place] # Seg Neutrophils % Seg Neuts % (Manual) Lymphocytes % (Manual) Seg Neutrophils # Seg Neutrophils # Man Lymphocytes # (Manual) PT INR APTT POC ABG pH POC ABG pCO2 POC ABG pO2 Sodium Potassium Chloride Carbon Dioxide BUN Creatinine Glucose POC Glucose 130 H 153 H Lactic Acid Calcium Phosphorus Magnesium Iron TIBC AST ALT Alkaline Phosphatase Total Creatine Kinase C-Reactive Protein Total Protein Albumin Folate PTH Intact Urine WBC (Auto) Urine Creatinine Urine Chloride Urine Total Protein Vancomycin Trough Miscellaneous Test Crossmatch 06/05/18 06/05/18 06/05/18 07:00 07:00 12:10 WBC 19.3 H RBC 2.94 L Hgb 8.3 L Hct 25.6 L MCHC RDW 15.7 H Plt Count 568 H Lymph % (Auto) 4.7 L [place] % (Auto) Lymph # 0.9 L [place] # 1.1 H Seg Neutrophils % 88.9 H Seg Neuts % (Manual) Lymphocytes % (Manual) Seg Neutrophils # 17.2 H Seg Neutrophils # Man Lymphocytes # (Manual) PT INR APTT POC ABG pH POC ABG pCO2 POC ABG pO2 Sodium Potassium 3.4 L D Chloride Carbon Dioxide BUN 67 H Creatinine 3.6 H Glucose 145 H POC Glucose 150 H Lactic Acid Calcium 7.9 L Phosphorus 4.60 H Magnesium Iron TIBC AST ALT Alkaline Phosphatase Total Creatine Kinase C-Reactive Protein Total Protein Albumin Folate PTH Intact Urine WBC (Auto) Urine Creatinine Urine Chloride Urine Total Protein Vancomycin Trough Miscellaneous Test Crossmatch 06/05/18 06/06/18 06/06/18 16:01 06:39 07:14 WBC 16.5 H RBC 2.84 L Hgb 8.1 L Hct 25.2 L MCHC RDW 16.4 H Plt Count 526 H Lymph % (Auto) 6.5 L [place] % (Auto) Lymph # 1.1 L [place] # 1.2 H Seg Neutrophils % 85.3 H Seg Neuts % (Manual) Lymphocytes % (Manual) Seg Neutrophils # 14.1 H Seg Neutrophils # Man Lymphocytes # (Manual) PT INR APTT POC ABG pH POC ABG pCO2 POC ABG pO2 Sodium Potassium Chloride Carbon Dioxide BUN Creatinine Glucose POC Glucose 129 H 131 H Lactic Acid Calcium Phosphorus Magnesium Iron TIBC AST ALT Alkaline Phosphatase Total Creatine Kinase C-Reactive Protein Total Protein Albumin Folate PTH Intact Urine WBC (Auto) Urine Creatinine Urine Chloride Urine Total Protein Vancomycin Trough Miscellaneous Test Crossmatch 06/06/18 06/06/18 06/06/18 07:14 07:14 11:15 WBC RBC Hgb Hct MCHC RDW Plt Count Lymph % (Auto) [place] % (Auto) Lymph # [place] # Seg Neutrophils % Seg Neuts % (Manual) Lymphocytes % (Manual) Seg Neutrophils # Seg Neutrophils # Man Lymphocytes # (Manual) PT INR APTT POC ABG pH POC ABG pCO2 POC ABG pO2 Sodium Potassium Chloride 109.1 H Carbon Dioxide 21 L BUN 76 H Creatinine 3.5 H Glucose 111 H POC Glucose 127 H Lactic Acid Calcium 8.1 L Phosphorus Magnesium Iron TIBC AST ALT Alkaline Phosphatase Total Creatine Kinase C-Reactive Protein 4.70 H Total Protein Albumin Folate PTH Intact Urine WBC (Auto) Urine Creatinine Urine Chloride Urine Total Protein Vancomycin Trough Miscellaneous Test Crossmatch 06/06/18 06/06/18 06/07/18 18:00 23:58 05:45 WBC 15.5 H RBC 2.60 L Hgb 7.4 L Hct 23.1 L MCHC RDW 16.5 H Plt Count 506 H Lymph % (Auto) 5.3 L [place] % (Auto) Lymph # 0.8 L [place] # 1.0 H Seg Neutrophils % 86.6 H Seg Neuts % (Manual) Lymphocytes % (Manual) Seg Neutrophils # 13.4 H Seg Neutrophils # Man Lymphocytes # (Manual) PT INR APTT POC ABG pH POC ABG pCO2 POC ABG pO2 Sodium Potassium Chloride Carbon Dioxide BUN Creatinine Glucose POC Glucose 130 H 114 H Lactic Acid Calcium Phosphorus Magnesium Iron TIBC AST ALT Alkaline Phosphatase Total Creatine Kinase C-Reactive Protein Total Protein Albumin Folate PTH Intact Urine WBC (Auto) Urine Creatinine Urine Chloride Urine Total Protein Vancomycin Trough Miscellaneous Test Crossmatch 06/07/18 06/07/18 05:45 05:54 WBC RBC Hgb Hct MCHC RDW Plt Count Lymph % (Auto) [place] % (Auto) Lymph # [place] # Seg Neutrophils % Seg Neuts % (Manual) Lymphocytes % (Manual) Seg Neutrophils # Seg Neutrophils # Man Lymphocytes # (Manual) PT INR APTT POC ABG pH POC ABG pCO2 POC ABG pO2 Sodium Potassium Chloride 108.4 H Carbon Dioxide BUN 84 H Creatinine 3.5 H Glucose 119 H POC Glucose 114 H Lactic Acid Calcium 8.1 L Phosphorus 5.10 H Magnesium Iron TIBC AST ALT Alkaline Phosphatase Total Creatine Kinase C-Reactive Protein Total Protein Albumin Folate PTH Intact Urine WBC (Auto) Urine Creatinine Urine Chloride Urine Total Protein Vancomycin Trough Miscellaneous Test Crossmatch Allied health notes reviewed: nursing
--- NOTE | 2018-06-07 17:52 | Cat Scan Report ---
Exam: CT guided drainage of fluid collection the patient's abdomen Clinical indication: Patient with a history of postoperative fluid collection Date: 06/07/2018 Procedure: Following examination of the risks, benefits and alternatives; written informed consent was obtained. Patient was brought to the CT suite and placed in supine position on the examination table. Initial CT imaging was obtained an appropriate access site was chosen along the patient's left lower quadrant. Patient's abdomen was prepped and draped in usual sterile fashion. 1% lidocaine was used for anesthesia. Using intermittent CT guidance, a 10 cm 17-gauge trocar needle was advanced into the fluid collection. His requester 35 guidewire was coiled within the fluid collection and the needle removed. Following serial dilation over the guidewire under fluoroscopy, a 10 [place] drainage catheter was placed over the guidewire under fluoroscopy. A total of 250 mL's of purulent appearing serous fluid was aspirated. The catheter was secured to the skin surface using 2 silk suture and the Stayfix device. The catheter was then placed to drainage. This sterile dressing was applied. The patient tolerated the procedure well. There were no immediate post procedure complications. Conscious sedation was performed at [facility]. Post cardiopulmonary monitoring was utilized. IMPRESSION: 1) CT guided placement of drainage catheter with 250 mL's of purulent appearing serous fluid aspirated. Samples were sent for laboratory analysis.
--- NOTE | 2018-06-07 18:48 | Progress Note ---
Assessment and Plan - Patient Problems (1) Acute renal failure Current Visit: Yes Status: Acute Qualifiers: Acute renal failure type: unspecified Qualified Code(s): N17.9 - Acute kidney failure, unspecified Plan to address problem: Follow renal service. (2) Edema Current Visit: Yes Status: Acute Qualifiers: Edema type: unspecified Qualified Code(s): R60.9 - Edema, unspecified Plan to address problem: Due in part to overall tumor burden., and may be poor protien. (3) Pelvic mass in male Current Visit: Yes Status: Acute Plan to address problem: consistent with SQ cell histology, REC remains the same. (4) Sepsis Current Visit: Yes Status: Acute Plan to address problem: treat underlying issues. Subjective Date of service: 06/07/18 Principal diagnosis: sq ca - pelvic mass Interval history: I am covering DR Oates/PM group.Patient seen, resting in bed, records reviewed, cbc fair. Prostate bx with Squamous histology. REC remains the same until any further conclusive results.Treat other co morbid issues.WBC19.3, H/h8.3/25, RBP366,000. Covering DR Plunkett. Patient seen,resting in bed, records reviewed. Hgb dropped by o.2 very insignificant. Sill covering DR Plunkett, patient seen, resting in bed, nothing new.records reviewed. Objective - Constitutional Vitals: Vital Signs - 12hr 06/07/18 06/07/18 06/07/18 08:29 09:11 09:34 Temperature 98.5 F Pulse Rate 102 H 89 Pulse Rate [ Intra-Procedure ] Pulse Rate [ Post-Procedure] Pulse Rate [Pre -Procedure] Respiratory 18 20 Rate Respiratory Rate [Intra- Procedure] Respiratory Rate [Post- Procedure] Respiratory Rate [Pre- Procedure] Blood Pressure 157/102 181/134 Blood Pressure [Intra- Procedure] Blood Pressure [Post-Procedure ] Blood Pressure [Pre-Procedure] O2 Sat by Pulse 100 100 99 Oximetry O2 Sat by Pulse Oximetry [ Intra-Procedure ] O2 Sat by Pulse Oximetry [Post -Procedure] O2 Sat by Pulse Oximetry [Pre- Procedure] 06/07/18 06/07/18 06/07/18 09:36 11:43 11:44 Temperature Pulse Rate 91 H 91 H 86 Pulse Rate [ Intra-Procedure ] Pulse Rate [ Post-Procedure] Pulse Rate [Pre -Procedure] Respiratory 18 Rate Respiratory Rate [Intra- Procedure] Respiratory Rate [Post- Procedure] Respiratory Rate [Pre- Procedure] Blood Pressure 167/95 Blood Pressure [Intra- Procedure] Blood Pressure [Post-Procedure ] Blood Pressure [Pre-Procedure] O2 Sat by Pulse 100 96 Oximetry O2 Sat by Pulse Oximetry [ Intra-Procedure ] O2 Sat by Pulse Oximetry [Post -Procedure] O2 Sat by Pulse Oximetry [Pre- Procedure] 06/07/18 06/07/18 06/07/18 11:48 12:30 15:00 Temperature Pulse Rate 91 H 112 H Pulse Rate [ Intra-Procedure ] Pulse Rate [ Post-Procedure] Pulse Rate [Pre 94 H -Procedure] Respiratory Rate Respiratory Rate [Intra- Procedure] Respiratory Rate [Post- Procedure] Respiratory 20 Rate [Pre- Procedure] Blood Pressure Blood Pressure [Intra- Procedure] Blood Pressure [Post-Procedure ] Blood Pressure 165/99 [Pre-Procedure] O2 Sat by Pulse 95 Oximetry O2 Sat by Pulse Oximetry [ Intra-Procedure ] O2 Sat by Pulse Oximetry [Post -Procedure] O2 Sat by Pulse 100 Oximetry [Pre- Procedure] 06/07/18 06/07/18 06/07/18 15:33 15:35 15:40 Temperature Pulse Rate Pulse Rate [ 99 H 110 H 116 H Intra-Procedure ] Pulse Rate [ Post-Procedure] Pulse Rate [Pre -Procedure] Respiratory Rate Respiratory 31 H 28 H 30 H Rate [Intra- Procedure] Respiratory Rate [Post- Procedure] Respiratory Rate [Pre- Procedure] Blood Pressure Blood Pressure 158/104 147/95 145/95 [Intra- Procedure] Blood Pressure [Post-Procedure ] Blood Pressure [Pre-Procedure] O2 Sat by Pulse Oximetry O2 Sat by Pulse 100 100 100 Oximetry [ Intra-Procedure ] O2 Sat by Pulse Oximetry [Post -Procedure] O2 Sat by Pulse Oximetry [Pre- Procedure] 06/07/18 06/07/18 06/07/18 15:41 15:54 16:06 Temperature Pulse Rate Pulse Rate [ Intra-Procedure ] Pulse Rate [ 111 H 116 H 126 H Post-Procedure] Pulse Rate [Pre -Procedure] Respiratory Rate Respiratory Rate [Intra- Procedure] Respiratory 22 29 H 25 H Rate [Post- Procedure] Respiratory Rate [Pre- Procedure] Blood Pressure Blood Pressure [Intra- Procedure] Blood Pressure 150/91 146/98 138/84 [Post-Procedure ] Blood Pressure [Pre-Procedure] O2 Sat by Pulse Oximetry O2 Sat by Pulse Oximetry [ Intra-Procedure ] O2 Sat by Pulse 100 100 100 Oximetry [Post -Procedure] O2 Sat by Pulse Oximetry [Pre- Procedure] - EENT Eyes: PERRL, EOM intact ENT: hearing intact, clear oral mucosa Ears: bilateral: normal - Neck Neck: supple, normal ROM - Respiratory Respiratory: bilateral: rhonchi - Breasts Breasts: deferred - Cardiovascular Rhythm: regular Heart Sounds: Present: S1 & S2. Absent: gallop, rub Extremities: pulses intact, No edema, normal color, Full ROM - Gastrointestinal General gastrointestinal: Present: soft, non-tender, non-distended, normal bowel sounds Rectal Exam: deferred - Genitourinary Male genitourinary: deferred - Integumentary Integumentary: clear, warm, dry - Musculoskeletal Musculoskeletal: 1, strength equal bilaterally - Neurologic Neurologic: moves all extremities - Psychiatric Psychiatric: appropriate mood/affect, intact judgment & insight - Labs CBC & Chem 7: 06/07/18 05:45 06/07/18 05:45 Labs: Abnormal lab results 06/06/18 06/07/18 06/07/18 Range/Units 23:58 05:45 05:45 WBC 15.5 H (4.5-11.0) K/mm3 RBC 2.60 L (3.65-5.03) M/mm3 Hgb 7.4 L (11.8-15.2) gm/dl Hct 23.1 L (35.5-45.6) % RDW 16.5 H (13.2-15.2) % Plt Count 506 H (140-440) K/mm3 Lymph % (Auto) 5.3 L (13.4-35.0) % Lymph # 0.8 L (1.2-5.4) K/mm3 [place] # 1.0 H (0.0-0.8) K/mm3 Seg Neutrophils % 86.6 H (40.0-70.0) % Seg Neutrophils # 13.4 H (1.8-7.7) K/mm3 Chloride 108.4 H (98-107) mmol/L BUN 84 H (9-20) mg/dL Creatinine 3.5 H (0.8-1.5) mg/dL Glucose 119 H (75-100) mg/dL POC Glucose 114 H (70-105) Calcium 8.1 L (8.4-10.2) mg/dL Phosphorus 5.10 H (2.5-4.5) mg/dL 06/07/18 Range/Units 05:54 WBC (4.5-11.0) K/mm3 RBC (3.65-5.03) M/mm3 Hgb (11.8-15.2) gm/dl Hct (35.5-45.6) % RDW (13.2-15.2) % Plt Count (140-440) K/mm3 Lymph % (Auto) (13.4-35.0) % Lymph # (1.2-5.4) K/mm3 [place] # (0.0-0.8) K/mm3 Seg Neutrophils % (40.0-70.0) % Seg Neutrophils # (1.8-7.7) K/mm3 Chloride (98-107) mmol/L BUN (9-20) mg/dL Creatinine (0.8-1.5) mg/dL Glucose (75-100) mg/dL POC Glucose 114 H (70-105) Calcium (8.4-10.2) mg/dL Phosphorus (2.5-4.5) mg/dL
[2018-06-07] MEDS ORDERED: TPN ADULT 2,016 ML IV SCH (20:00)
[2018-06-07] MEDS: NACL 0.45% 1000 ML 1,000 ML IV SCH (21:56)
[2018-06-07] MEDS: ZOSYN/NS 2.25 GM/50ML 2.25 GM/50 ML BAG IV SCH (22:36)
[2018-06-08] MEDS: APRESOLINE IV PRN (05:16)
[2018-06-08] MEDS: APRESOLINE PO SCH ×3 (05:16→22:08)
[2018-06-08] MEDS: HumuLIN R SUB-Q SCH ×4 (05:17→18:00)
[2018-06-08 06:45] LABS: Calcium 7.9 mg/dL (8.4-10.2)
--- NOTE | 2018-06-08 07:32 | Progress Note ---
Assessment and Plan 1. Acute kidney injury: Initial MARYLOU in the setting of bilateral hydronephrosis secondary to pelvic mass , now s/p bilateral nephrostomy. Recurrent Acute kidney injury likely ATN now. Patient required urgent hemodialysis due to worsening renal function and persistent hyperkalemia. Last dialyzed 06/02/81. Creatinine leveled off. BUN increasing. Will remove the dialysis catheter. Renal prognosis is guarded. On PPN / TPN. Continue IV fluids. 2. Electrolytes: Monitor. 3. Bowel obstruction: S/p ostomy. 4. Bilateral hydronephrosis: Secondary to pelvic mass. S/p bilateral nephrostomy. S/p Cysto and drainage of abscess. 5. Respiratory failure: S/p extubated. 6. Hypertension: On Clonidine patch 0.6 mg / 24 hr. Add IV Metoprolol. Monitor BP. 7. Sepsis: Complicated UTI and pneumonia. 8. Anemia. 9. 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 Subjective Date of service: 06/08/18 Principal diagnosis: sq ca - pelvic mass Interval history: Patient was seen and examined at the bedside. Objective - Vital Signs Vital signs: Vital Signs - 12hr 06/07/18 06/07/18 06/07/18 19:49 22:00 23:43 Temperature 98.3 F Pulse Rate 113 H 102 H Respiratory 20 Rate Blood Pressure 158/110 O2 Sat by Pulse 100 97 Oximetry 06/08/18 06/08/18 06/08/18 00:11 03:55 05:16 Temperature 98.3 F 97.9 F Pulse Rate 84 103 H 103 H Respiratory 22 22 Rate Blood Pressure 163/98 183/116 183/116 O2 Sat by Pulse 93 100 Oximetry - General Appearance General appearance: well-developed, appears stated age, other (not in distress) EENT: ATNC, PERRL, mucous membranes dry, hearing intact Neck: supple Respiratory: Present: Clear to Ascultation Cardiology: regular, S1S2, no murmurs Gastrointestinal: normoactive bowel sounds, tenderness, distended, other (drain , ostomy and bilateral nephrostomy noted) Integumentary: no rash Neurologic: no focal deficit Musculoskeletal: other (no edema, right groin dialysis catheter) - Lab 06/07/18 05:45 06/08/18 05:24 Most recent lab results Calcium 7.9 mg/dL (8.4-10.2) L 06/08/18 05:24 Phosphorus 4.30 mg/dL (2.5-4.5) 06/08/18 05:24 Magnesium 1.70 mg/dL (1.7-2.3) 06/08/18 05:24 Urine Creatinine 66.0 mg/dL (0.1-20.0) H 05/13/18 19:39 Urine Sodium 60 mmol/L 05/13/18 19:39 Urine Total Protein 24 mg/dL (5-11.8) H 05/13/18 19:39
[2018-06-08] MEDS: HEPARIN SUB-Q SCH ×2 (11:15→22:08)
[2018-06-08] MEDS: PEPCID IV SCH (11:15)
[2018-06-08] MEDS: FERROUS SULFATE PO SCH ×2 (11:16→22:08)
[2018-06-08] MEDS: FOLVITE PO SCH (11:16)
[2018-06-08] MEDS: ZOSYN/NS 2.25 GM/50ML 2.25 GM/50 ML BAG IV SCH ×2 (11:19→22:08)
--- NOTE | 2018-06-08 11:19 | Progress Note ---
Assessment and Plan Pt feeling well. Abd much softer more formed stool noted in ostomy stable SBFT today will attempt po liq diet if contrast flows thru without obst Selected Entries 06/06/18 06/08/18 08:58 07:59 Temperature 97.7 F 98.4 F Pulse Rate 87 121 H Respiratory 22 Rate Blood Pressure 170/102 171/96 Laboratory Tests 06/06/18 06/07/18 07:14 05:45 WBC 16.5 H 15.5 H Hgb 8.1 L 7.4 L Hct 25.2 L 23.1 L Objective Vital Signs - 12hr 06/07/18 06/08/18 06/08/18 23:43 00:11 03:55 Temperature 98.3 F 97.9 F Pulse Rate 102 H 84 103 H Respiratory 22 22 Rate Blood Pressure 163/98 183/116 O2 Sat by Pulse 93 100 Oximetry 06/08/18 06/08/18 06/08/18 05:16 07:59 10:00 Temperature 98.4 F Pulse Rate 103 H 121 H Respiratory 21 Rate Blood Pressure 183/116 171/96 O2 Sat by Pulse 93 93 Oximetry - Labs 06/07/18 05:45 06/08/18 05:24 Diabetes panel 06/08/18 Range/Units 05:24 Sodium 148 H (137-145) mmol/L Potassium 3.7 (3.6-5.0) mmol/L Chloride 112.4 H (98-107) mmol/L Carbon Dioxide 22 (22-30) mmol/L BUN 89 H (9-20) mg/dL Creatinine 3.4 H (0.8-1.5) mg/dL Glucose 120 H (75-100) mg/dL Calcium 7.9 L (8.4-10.2) mg/dL Calcium panel 06/08/18 Range/Units 05:24 Calcium 7.9 L (8.4-10.2) mg/dL Phosphorus 4.30 (2.5-4.5) mg/dL Pituitary panel 06/08/18 Range/Units 05:24 Sodium 148 H (137-145) mmol/L Potassium 3.7 (3.6-5.0) mmol/L Chloride 112.4 H (98-107) mmol/L Carbon Dioxide 22 (22-30) mmol/L BUN 89 H (9-20) mg/dL Creatinine 3.4 H (0.8-1.5) mg/dL Glucose 120 H (75-100) mg/dL Calcium 7.9 L (8.4-10.2) mg/dL Adrenal panel 06/08/18 Range/Units 05:24 Sodium 148 H (137-145) mmol/L Potassium 3.7 (3.6-5.0) mmol/L Chloride 112.4 H (98-107) mmol/L Carbon Dioxide 22 (22-30) mmol/L BUN 89 H (9-20) mg/dL Creatinine 3.4 H (0.8-1.5) mg/dL Glucose 120 H (75-100) mg/dL Calcium 7.9 L (8.4-10.2) mg/dL
[2018-06-08] MEDS: LOPRESSOR IV SCH ×3 (12:00→23:59)
[2018-06-08] MEDS ORDERED: METHYLENE BLUE ONE (12:42)
--- NOTE | 2018-06-08 13:09 | Progress Note ---
Assessment and Plan Acute hypoxemic respiratory failure, possibly secondary to 2. Bilateral pneumonia, possibly aspiration. Sepsis syndrome. 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 Acute deep venous thrombosis. Hypertensive urgency. Hyperkalemia, now resolved. Moderate to severe protein calorie malnutrition Hypernatremia. Hypochloremia. Anemia, normocytic. (ABLA) - continue supplemental oxygen to keep sats > 90% - continue bronchodilators with pulmonary hygiene per RT - HD/UF for toxin and volume clearance - continue anti-infective's per ID recs - continue TPN for now (enteral nutrition once cleared by surgery) - Malignancy per heme-oncologist - continue mobility protocol for pressure ulcer prophylaxis - s/p surgery 05/26 (had ex-lap; matted abdominal organs, pus) - s/p bilateral nephrostomy tubes placed 05/14/[address] Freeman. - continue other care per attending / other consultants - consider paracentesis - continue other care per attending / other consultants ... re-evaluate in am & prn Subjective Date of service: 06/08/18 Principal diagnosis: Acute Hypoxemic Resp Failure; Sepsis Syndrome; Acute VTE; Prostate Cancer Interval history: Patient is seen today for: Acute Hypoxemic Resp Failure; Sepsis Syndrome; Acute VTE; Prostate Cancer Seen and examined at bedside; 24hour events reviewed; nursing and respiratory care staff consulted; no adverse overnight events reported to me; resting peacefully; Objective Vital Signs - 12hr 06/08/18 06/08/18 06/08/18 03:55 05:16 07:59 Temperature 97.9 F 98.4 F Pulse Rate 103 H 103 H 121 H Respiratory 22 21 Rate Blood Pressure 183/116 183/116 171/96 O2 Sat by Pulse 100 93 Oximetry 06/08/18 10:00 Temperature Pulse Rate Respiratory Rate Blood Pressure O2 Sat by Pulse 93 Oximetry Constitutional: no acute distress, alert, other (chronically ill looking middle aged AAM, normocephalic and atraumatic, ) Eyes: non-icteric ENT: oropharynx moist Neck: supple, no lymphadenopathy, no JVD, other (no thyromegaly) Effort: mildly labored Ascultation: Bilateral: diminished breath sounds, rhonchi (scant in bases) Percussion: Bilateral: not dull Cardiovascular: regular rate and rhythm, other (No R/M) Gastrointestinal: hypoactive bowel sounds, soft, tender (mild), other (Distended ; No palpable HSM, bilateral nephrostomy tubes,) Integumentary: other (femoral vascath) Extremities: no cyanosis, no edema, pulses normal, no ischemia or petechiae Neurologic: normal mental status, non-focal exam, pupils equal and round, other (weak) Psychiatric: mood appropriate, affect normal CBC and BMP: 06/07/18 05:45 06/08/18 05:24 ABG, PT/INR, D-dimer: ABG POC ABG pH 7.362 (7.35-7.45) 05/31/18 09:58 POC ABG pCO2 36.4 (35-45) 05/31/18 09:58 POC ABG pO2 101 (80-105) 05/31/18 09:58 POC ABG HCO3 20.7 05/31/18 09:58 POC ABG Total CO2 22 05/31/18 09:58 POC ABG O2 Sat 98 05/31/18 09:58 PT/INR, D-dimer PT 17.1 Sec. (12.2-14.9) H 06/03/18 09:18 INR 1.34 (0.87-1.13) H 06/03/18 09:18 Abnormal lab findings: Abnormal Labs 05/13/18 05/13/18 05/13/18 04:27 04:27 19:39 WBC RBC 3.13 L Hgb 9.4 L Hct 26.8 L MCHC 35 H RDW Plt Count Lymph % (Auto) [place] % (Auto) 9.6 H Lymph # [place] # Seg Neutrophils % Seg Neuts % (Manual) Lymphocytes % (Manual) Seg Neutrophils # Seg Neutrophils # Man Lymphocytes # (Manual) PT INR APTT POC ABG pH POC ABG pCO2 POC ABG pO2 Sodium 132 L Potassium 5.5 H Chloride 94.1 L Carbon Dioxide 19 L BUN 72 H Creatinine 14.4 H Glucose POC Glucose Lactic Acid Calcium Phosphorus Magnesium Iron TIBC AST ALT Alkaline Phosphatase Total Creatine Kinase C-Reactive Protein Total Protein Albumin 2.8 L Folate PTH Intact Urine WBC (Auto) Urine Creatinine 66.0 H Urine Chloride 27.8 L Urine Total Protein 24 H Fluid Glucose Fluid Total Protein Vancomycin Trough Miscellaneous Test Crossmatch 05/13/18 05/14/18 05/14/18 20:00 05:05 05:05 WBC RBC Hgb Hct MCHC RDW Plt Count Lymph % (Auto) [place] % (Auto) Lymph # [place] # Seg Neutrophils % Seg Neuts % (Manual) Lymphocytes % (Manual) Seg Neutrophils # Seg Neutrophils # Man Lymphocytes # (Manual) PT INR APTT POC ABG pH POC ABG pCO2 POC ABG pO2 Sodium 132 L 131 L Potassium 5.2 H 5.8 H Chloride 93.0 L 95.6 L Carbon Dioxide 19 L 20 L BUN 74 H 81 H Creatinine 15.0 H 16.6 H Glucose 134 H 127 H POC Glucose Lactic Acid Calcium 8.2 L 7.9 L Phosphorus 6.30 H Magnesium Iron TIBC AST ALT Alkaline Phosphatase Total Creatine Kinase 236 H C-Reactive Protein Total Protein Albumin Folate PTH Intact 65.37 H Urine WBC (Auto) Urine Creatinine Urine Chloride Urine Total Protein Fluid Glucose Fluid Total Protein Vancomycin Trough Miscellaneous Test Crossmatch 05/14/18 05/14/18 05/14/18 09:28 10:56 13:29 WBC RBC Hgb Hct MCHC RDW Plt Count Lymph % (Auto) [place] % (Auto) Lymph # [place] # Seg Neutrophils % Seg Neuts % (Manual) Lymphocytes % (Manual) Seg Neutrophils # Seg Neutrophils # Man Lymphocytes # (Manual) PT INR APTT 38.2 H POC ABG pH POC ABG pCO2 POC ABG pO2 Sodium Potassium Chloride Carbon Dioxide BUN Creatinine Glucose POC Glucose 127 H 126 H Lactic Acid Calcium Phosphorus Magnesium Iron TIBC AST ALT Alkaline Phosphatase Total Creatine Kinase C-Reactive Protein Total Protein Albumin Folate PTH Intact Urine WBC (Auto) Urine Creatinine Urine Chloride Urine Total Protein Fluid Glucose Fluid Total Protein Vancomycin Trough Miscellaneous Test Crossmatch 05/15/18 05/15/18 05/16/18 08:06 08:06 07:02 WBC RBC 2.84 L 2.74 L Hgb 8.5 L 8.5 L Hct 24.2 L 23.5 L MCHC 35 H 36 H RDW Plt Count Lymph % (Auto) [place] % (Auto) 10.4 H 11.0 H Lymph # 1.1 L [place] # 0.9 H Seg Neutrophils % 72.6 H Seg Neuts % (Manual) Lymphocytes % (Manual) Seg Neutrophils # Seg Neutrophils # Man Lymphocytes # (Manual) PT INR APTT POC ABG pH POC ABG pCO2 POC ABG pO2 Sodium Potassium Chloride Carbon Dioxide 19 L BUN 66 H Creatinine 12.0 H Glucose 115 H POC Glucose Lactic Acid Calcium 8.1 L Phosphorus Magnesium Iron TIBC AST ALT Alkaline Phosphatase Total Creatine Kinase C-Reactive Protein Total Protein Albumin Folate PTH Intact Urine WBC (Auto) Urine Creatinine Urine Chloride Urine Total Protein Fluid Glucose Fluid Total Protein Vancomycin Trough Miscellaneous Test Crossmatch 05/16/18 05/16/18 05/17/18 07:02 07:02 05:08 WBC RBC 2.78 L Hgb 8.2 L Hct 23.9 L MCHC RDW Plt Count Lymph % (Auto) [place] % (Auto) 13.9 H Lymph # [place] # 0.9 H Seg Neutrophils % Seg Neuts % (Manual) Lymphocytes % (Manual) Seg Neutrophils # Seg Neutrophils # Man Lymphocytes # (Manual) PT INR APTT POC ABG pH POC ABG pCO2 POC ABG pO2 Sodium Potassium Chloride Carbon Dioxide BUN 28 H Creatinine 2.4 H D Glucose POC Glucose Lactic Acid Calcium 8.3 L Phosphorus Magnesium 1.50 L Iron 24 L TIBC 160 L AST ALT Alkaline Phosphatase Total Creatine Kinase C-Reactive Protein Total Protein Albumin Folate 5.39 L PTH Intact Urine WBC (Auto) Urine Creatinine Urine Chloride Urine Total Protein Fluid Glucose Fluid Total Protein Vancomycin Trough Miscellaneous Test Crossmatch 05/17/18 05/18/18 05/18/18 05:08 05:57 05:57 WBC RBC 2.79 L Hgb 8.3 L Hct 24.0 L MCHC 35 H RDW Plt Count Lymph % (Auto) [place] % (Auto) 11.8 H Lymph # [place] # 0.9 H Seg Neutrophils % Seg Neuts % (Manual) Lymphocytes % (Manual) Seg Neutrophils # Seg Neutrophils # Man Lymphocytes # (Manual) PT INR APTT POC ABG pH POC ABG pCO2 POC ABG pO2 Sodium Potassium Chloride Carbon Dioxide BUN Creatinine Glucose POC Glucose Lactic Acid Calcium 7.7 L 8.0 L Phosphorus Magnesium 1.60 L Iron TIBC AST ALT Alkaline Phosphatase Total Creatine Kinase C-Reactive Protein Total Protein Albumin Folate PTH Intact Urine WBC (Auto) Urine Creatinine Urine Chloride Urine Total Protein Fluid Glucose Fluid Total Protein Vancomycin Trough Miscellaneous Test Crossmatch 05/19/18 05/19/18 05/20/18 05:33 05:33 05:38 WBC RBC 2.95 L Hgb 8.8 L Hct 25.8 L MCHC RDW Plt Count Lymph % (Auto) 10.1 L [place] % (Auto) Lymph # 1.1 L [place] # Seg Neutrophils % 85.2 H Seg Neuts % (Manual) Lymphocytes % (Manual) Seg Neutrophils # 9.0 H Seg Neutrophils # Man Lymphocytes # (Manual) PT INR APTT POC ABG pH POC ABG pCO2 POC ABG pO2 Sodium 135 L Potassium Chloride Carbon Dioxide BUN Creatinine Glucose 132 H POC Glucose Lactic Acid Calcium 7.8 L 8.3 L Phosphorus Magnesium 1.40 L Iron TIBC AST ALT Alkaline Phosphatase Total Creatine Kinase C-Reactive Protein Total Protein Albumin Folate PTH Intact Urine WBC (Auto) Urine Creatinine Urine Chloride Urine Total Protein Fluid Glucose Fluid Total Protein Vancomycin Trough Miscellaneous Test Crossmatch 05/21/18 05/21/18 05/22/18 04:46 15:30 06:49 WBC 20.0 H RBC 2.70 L Hgb 7.8 L Hct 23.3 L MCHC RDW Plt Count Lymph % (Auto) [place] % (Auto) Lymph # [place] # Seg Neutrophils % Seg Neuts % (Manual) 85.0 H Lymphocytes % (Manual) 4.0 L Seg Neutrophils # Seg Neutrophils # Man 17.0 H Lymphocytes # (Manual) 0.8 L PT INR APTT POC ABG pH POC ABG pCO2 POC ABG pO2 Sodium 135 L Potassium 3.5 L Chloride Carbon Dioxide 21 L BUN 22 H Creatinine Glucose POC Glucose Lactic Acid Calcium 8.1 L Phosphorus Magnesium Iron TIBC AST ALT Alkaline Phosphatase Total Creatine Kinase C-Reactive Protein Total Protein Albumin Folate PTH Intact Urine WBC (Auto) 28.0 H Urine Creatinine Urine Chloride Urine Total Protein Fluid Glucose Fluid Total Protein Vancomycin Trough Miscellaneous Test Crossmatch 05/22/18 05/22/18 05/23/18 06:49 11:23 09:03 WBC RBC Hgb Hct MCHC RDW Plt Count Lymph % (Auto) [place] % (Auto) Lymph # [place] # Seg Neutrophils % Seg Neuts % (Manual) Lymphocytes % (Manual) Seg Neutrophils # Seg Neutrophils # Man Lymphocytes # (Manual) PT INR APTT POC ABG pH POC ABG pCO2 POC ABG pO2 Sodium 134 L Potassium 3.5 L Chloride Carbon Dioxide 21 L BUN 35 H 36 H Creatinine 1.7 H Glucose 107 H POC Glucose Lactic Acid Calcium 7.9 L Phosphorus Magnesium 2.50 H Iron TIBC AST ALT Alkaline Phosphatase Total Creatine Kinase C-Reactive Protein Total Protein Albumin Folate PTH Intact Urine WBC (Auto) Urine Creatinine Urine Chloride Urine Total Protein Fluid Glucose Fluid Total Protein Vancomycin Trough Miscellaneous Test Crossmatch See Detail 05/23/18 05/23/18 05/23/18 09:03 09:03 17:34 WBC 26.3 H RBC 3.57 L Hgb 10.4 L Hct 31.1 L D MCHC RDW Plt Count Lymph % (Auto) [place] % (Auto) Lymph # [place] # Seg Neutrophils % Seg Neuts % (Manual) Lymphocytes % (Manual) Seg Neutrophils # Seg Neutrophils # Man Lymphocytes # (Manual) PT 18.3 H INR 1.43 H APTT 40.0 H POC ABG pH POC ABG pCO2 POC ABG pO2 Sodium Potassium Chloride Carbon Dioxide BUN Creatinine Glucose POC Glucose 108 H Lactic Acid Calcium Phosphorus Magnesium Iron TIBC AST ALT Alkaline Phosphatase Total Creatine Kinase C-Reactive Protein Total Protein Albumin Folate PTH Intact Urine WBC (Auto) Urine Creatinine Urine Chloride Urine Total Protein Fluid Glucose Fluid Total Protein Vancomycin Trough Miscellaneous Test Crossmatch 05/23/18 05/24/18 05/24/18 21:14 04:43 08:04 WBC RBC Hgb Hct MCHC RDW Plt Count Lymph % (Auto) [place] % (Auto) Lymph # [place] # Seg Neutrophils % Seg Neuts % (Manual) Lymphocytes % (Manual) Seg Neutrophils # Seg Neutrophils # Man Lymphocytes # (Manual) PT INR APTT POC ABG pH POC ABG pCO2 POC ABG pO2 Sodium 146 H Potassium Chloride 108.6 H Carbon Dioxide BUN 33 H Creatinine Glucose 109 H POC Glucose 110 H 106 H Lactic Acid Calcium 8.3 L Phosphorus Magnesium 2.50 H Iron TIBC AST ALT Alkaline Phosphatase Total Creatine Kinase C-Reactive Protein Total Protein Albumin Folate PTH Intact Urine WBC (Auto) Urine Creatinine Urine Chloride Urine Total Protein Fluid Glucose Fluid Total Protein Vancomycin Trough Miscellaneous Test Crossmatch 05/25/18 05/25/18 05/25/18 05:42 05:49 19:50 WBC RBC Hgb Hct MCHC RDW Plt Count Lymph % (Auto) [place] % (Auto) Lymph # [place] # Seg Neutrophils % Seg Neuts % (Manual) Lymphocytes % (Manual) Seg Neutrophils # Seg Neutrophils # Man Lymphocytes # (Manual) PT INR APTT POC ABG pH POC ABG pCO2 POC ABG pO2 Sodium 150 H Potassium Chloride 112.5 H Carbon Dioxide BUN 34 H Creatinine Glucose 102 H POC Glucose 107 H Lactic Acid Calcium Phosphorus Magnesium Iron TIBC AST ALT Alkaline Phosphatase Total Creatine Kinase C-Reactive Protein 34.50 H Total Protein Albumin Folate PTH Intact Urine WBC (Auto) Urine Creatinine Urine Chloride Urine Total Protein Fluid Glucose Fluid Total Protein Vancomycin Trough Miscellaneous Test Crossmatch 05/25/18 05/25/18 05/25/18 19:50 21:05 22:46 WBC RBC Hgb Hct MCHC RDW Plt Count Lymph % (Auto) [place] % (Auto) Lymph # [place] # Seg Neutrophils % Seg Neuts % (Manual) Lymphocytes % (Manual) Seg Neutrophils # Seg Neutrophils # Man Lymphocytes # (Manual) PT INR APTT POC ABG pH 7.483 H POC ABG pCO2 24.0 L POC ABG pO2 72 L Sodium Potassium Chloride Carbon Dioxide BUN Creatinine Glucose POC Glucose Lactic Acid 5.90 H* Calcium Phosphorus Magnesium Iron TIBC AST ALT Alkaline Phosphatase Total Creatine Kinase C-Reactive Protein Total Protein Albumin Folate PTH Intact Urine WBC (Auto) Urine Creatinine Urine Chloride Urine Total Protein Fluid Glucose Fluid Total Protein Vancomycin Trough 25.1 H Miscellaneous Test Crossmatch 05/25/18 05/26/18 05/26/18 22:46 00:21 00:51 WBC RBC Hgb Hct MCHC RDW Plt Count Lymph % (Auto) [place] % (Auto) Lymph # [place] # Seg Neutrophils % Seg Neuts % (Manual) Lymphocytes % (Manual) Seg Neutrophils # Seg Neutrophils # Man Lymphocytes # (Manual) PT INR APTT POC ABG pH POC ABG pCO2 POC ABG pO2 Sodium Potassium Chloride Carbon Dioxide BUN Creatinine Glucose POC Glucose 133 H Lactic Acid 8.10 H* 6.20 H* Calcium Phosphorus Magnesium Iron TIBC AST ALT Alkaline Phosphatase Total Creatine Kinase C-Reactive Protein Total Protein Albumin Folate PTH Intact Urine WBC (Auto) Urine Creatinine Urine Chloride Urine Total Protein Fluid Glucose Fluid Total Protein Vancomycin Trough Miscellaneous Test Crossmatch 05/26/18 05/26/18 05/26/18 01:13 02:24 02:24 WBC 18.7 H RBC Hgb 11.6 L Hct MCHC RDW Plt Count Lymph % (Auto) [place] % (Auto) Lymph # [place] # Seg Neutrophils % Seg Neuts % (Manual) Lymphocytes % (Manual) Seg Neutrophils # Seg Neutrophils # Man Lymphocytes # (Manual) PT INR APTT POC ABG pH POC ABG pCO2 POC ABG pO2 Sodium 147 H Potassium 6.2 H* D Chloride 111.9 H Carbon Dioxide 19 L BUN 80 H Creatinine 5.1 H D Glucose 112 H POC Glucose Lactic Acid 5.20 H* Calcium 6.7 L D Phosphorus Magnesium Iron TIBC AST ALT Alkaline Phosphatase Total Creatine Kinase C-Reactive Protein Total Protein Albumin Folate PTH Intact Urine WBC (Auto) Urine Creatinine Urine Chloride Urine Total Protein Fluid Glucose Fluid Total Protein Vancomycin Trough Miscellaneous Test Crossmatch 05/26/18 05/26/18 05/26/18 04:20 04:20 05:39 WBC RBC Hgb Hct MCHC RDW Plt Count Lymph % (Auto) [place] % (Auto) Lymph # [place] # Seg Neutrophils % Seg Neuts % (Manual) Lymphocytes % (Manual) Seg Neutrophils # Seg Neutrophils # Man Lymphocytes # (Manual) PT INR APTT POC ABG pH POC ABG pCO2 POC ABG pO2 Sodium 150 H Potassium Chloride 110.0 H Carbon Dioxide 19 L BUN 66 H Creatinine Glucose 166 H POC Glucose 187 H Lactic Acid 5.10 H* Calcium 6.9 L Phosphorus 6.70 H D Magnesium Iron TIBC AST ALT Alkaline Phosphatase Total Creatine Kinase C-Reactive Protein Total Protein Albumin Folate PTH Intact Urine WBC (Auto) Urine Creatinine Urine Chloride Urine Total Protein Fluid Glucose Fluid Total Protein Vancomycin Trough Miscellaneous Test Crossmatch 05/26/18 05/26/18 05/26/18 06:02 07:29 11:00 WBC RBC Hgb Hct MCHC RDW Plt Count Lymph % (Auto) [place] % (Auto) Lymph # [place] # Seg Neutrophils % Seg Neuts % (Manual) Lymphocytes % (Manual) Seg Neutrophils # Seg Neutrophils # Man Lymphocytes # (Manual) PT INR APTT POC ABG pH POC ABG pCO2 28.8 L POC ABG pO2 Sodium Potassium Chloride Carbon Dioxide BUN Creatinine Glucose POC Glucose Lactic Acid 4.80 H* 3.80 H* Calcium Phosphorus Magnesium Iron TIBC AST ALT Alkaline Phosphatase Total Creatine Kinase C-Reactive Protein Total Protein Albumin Folate PTH Intact Urine WBC (Auto) Urine Creatinine Urine Chloride Urine Total Protein Fluid Glucose Fluid Total Protein Vancomycin Trough Miscellaneous Test Crossmatch 05/26/18 05/26/18 05/26/18 11:01 12:28 18:00 WBC RBC Hgb Hct MCHC RDW Plt Count Lymph % (Auto) [place] % (Auto) Lymph # [place] # Seg Neutrophils % Seg Neuts % (Manual) Lymphocytes % (Manual) Seg Neutrophils # Seg Neutrophils # Man Lymphocytes # (Manual) PT INR APTT POC ABG pH POC ABG pCO2 POC ABG pO2 Sodium 150 H 151 H Potassium 5.3 H D 6.1 H* Chloride 110.3 H 117.0 H Carbon Dioxide 21 L 20 L BUN 75 H 77 H Creatinine 4.3 H D 4.6 H Glucose 161 H POC Glucose 114 H Lactic Acid Calcium 7.5 L 6.7 L Phosphorus Magnesium Iron TIBC AST 1041 H ALT 406 H Alkaline Phosphatase 281 H Total Creatine Kinase C-Reactive Protein Total Protein 4.4 L Albumin 1.3 L Folate PTH Intact Urine WBC (Auto) Urine Creatinine Urine Chloride Urine Total Protein Fluid Glucose Fluid Total Protein Vancomycin Trough Miscellaneous Test Crossmatch 05/26/18 05/26/18 05/27/18 18:02 19:17 01:01 WBC 21.7 H RBC 2.70 L Hgb 7.8 L D Hct 24.6 L D MCHC RDW 15.3 H Plt Count Lymph % (Auto) [place] % (Auto) Lymph # [place] # Seg Neutrophils % Seg Neuts % (Manual) 94.0 H Lymphocytes % (Manual) 3.0 L Seg Neutrophils # Seg Neutrophils # Man 20.4 H Lymphocytes # (Manual) 0.7 L PT INR APTT POC ABG pH 7.159 L 7.205 L POC ABG pCO2 54.5 H 53.0 H POC ABG pO2 252 H Sodium Potassium Chloride Carbon Dioxide BUN Creatinine Glucose POC Glucose Lactic Acid Calcium Phosphorus Magnesium Iron TIBC AST ALT Alkaline Phosphatase Total Creatine Kinase C-Reactive Protein Total Protein Albumin Folate PTH Intact Urine WBC (Auto) Urine Creatinine Urine Chloride Urine Total Protein Fluid Glucose Fluid Total Protein Vancomycin Trough Miscellaneous Test Crossmatch 05/27/18 05/27/18 05/27/18 05:15 05:15 06:11 WBC 24.9 H RBC 2.86 L Hgb 8.1 L Hct 25.9 L MCHC RDW 15.5 H Plt Count Lymph % (Auto) [place] % (Auto) Lymph # [place] # Seg Neutrophils % Seg Neuts % (Manual) Lymphocytes % (Manual) Seg Neutrophils # Seg Neutrophils # Man Lymphocytes # (Manual) PT INR APTT POC ABG pH 7.265 L POC ABG pCO2 46.2 H POC ABG pO2 111 H Sodium 149 H Potassium 6.9 H* Chloride 113.5 H Carbon Dioxide BUN 89 H Creatinine 5.2 H Glucose 118 H POC Glucose Lactic Acid Calcium 7.0 L Phosphorus 9.70 H D Magnesium Iron TIBC AST 876 H ALT 408 H Alkaline Phosphatase Total Creatine Kinase C-Reactive Protein Total Protein 5.2 L Albumin 1.5 L Folate PTH Intact Urine WBC (Auto) Urine Creatinine Urine Chloride Urine Total Protein Fluid Glucose Fluid Total Protein Vancomycin Trough Miscellaneous Test Crossmatch 05/27/18 05/27/18 05/27/18 08:48 10:22 10:22 WBC RBC Hgb Hct MCHC RDW Plt Count Lymph % (Auto) [place] % (Auto) Lymph # [place] # Seg Neutrophils % Seg Neuts % (Manual) Lymphocytes % (Manual) Seg Neutrophils # Seg Neutrophils # Man Lymphocytes # (Manual) PT INR APTT POC ABG pH POC ABG pCO2 POC ABG pO2 Sodium 146 H Potassium 6.1 H* Chloride 108.2 H Carbon Dioxide 21 L BUN 88 H Creatinine 5.6 H Glucose 163 H POC Glucose 164 H Lactic Acid Calcium 6.7 L Phosphorus Magnesium Iron TIBC AST ALT Alkaline Phosphatase Total Creatine Kinase C-Reactive Protein 40.70 H Total Protein Albumin Folate PTH Intact Urine WBC (Auto) Urine Creatinine Urine Chloride Urine Total Protein Fluid Glucose Fluid Total Protein Vancomycin Trough Miscellaneous Test Crossmatch 05/27/18 05/27/18 05/27/18 13:02 17:39 23:27 WBC RBC Hgb Hct MCHC RDW Plt Count Lymph % (Auto) [place] % (Auto) Lymph # [place] # Seg Neutrophils % Seg Neuts % (Manual) Lymphocytes % (Manual) Seg Neutrophils # Seg Neutrophils # Man Lymphocytes # (Manual) PT INR APTT POC ABG pH POC ABG pCO2 POC ABG pO2 Sodium Potassium Chloride Carbon Dioxide BUN Creatinine Glucose POC Glucose 59 L 132 H Lactic Acid Calcium Phosphorus Magnesium Iron TIBC AST ALT Alkaline Phosphatase Total Creatine Kinase C-Reactive Protein Total Protein Albumin Folate PTH Intact Urine WBC (Auto) Urine Creatinine Urine Chloride Urine Total Protein Fluid Glucose Fluid Total Protein Vancomycin Trough Miscellaneous Test Flexitest 1 H Crossmatch 05/27/18 05/28/18 05/28/18 Unknown 04:32 05:00 WBC RBC Hgb Hct MCHC RDW Plt Count Lymph % (Auto) [place] % (Auto) Lymph # [place] # Seg Neutrophils % Seg Neuts % (Manual) Lymphocytes % (Manual) Seg Neutrophils # Seg Neutrophils # Man Lymphocytes # (Manual) PT INR APTT POC ABG pH POC ABG pCO2 POC ABG pO2 134 H Sodium Potassium Chloride Carbon Dioxide BUN 69 H Creatinine 4.4 H Glucose 118 H POC Glucose Lactic Acid Calcium 8.0 L D Phosphorus 6.80 H D Magnesium Iron TIBC AST ALT Alkaline Phosphatase Total Creatine Kinase C-Reactive Protein Total Protein Albumin Folate PTH Intact Urine WBC (Auto) 120.0 H Urine Creatinine Urine Chloride Urine Total Protein Fluid Glucose Fluid Total Protein Vancomycin Trough Miscellaneous Test Crossmatch 05/28/18 05/28/18 05/28/18 05:00 05:27 13:04 WBC 26.5 H RBC 2.69 L Hgb 7.7 L Hct 23.6 L MCHC RDW Plt Count Lymph % (Auto) [place] % (Auto) Lymph # [place] # Seg Neutrophils % Seg Neuts % (Manual) 96.0 H Lymphocytes % (Manual) 0 L Seg Neutrophils # Seg Neutrophils # Man 25.4 H Lymphocytes # (Manual) 0.0 L PT INR APTT POC ABG pH POC ABG pCO2 POC ABG pO2 Sodium Potassium Chloride Carbon Dioxide BUN Creatinine Glucose POC Glucose 128 H 155 H Lactic Acid Calcium Phosphorus Magnesium Iron TIBC AST ALT Alkaline Phosphatase Total Creatine Kinase C-Reactive Protein Total Protein Albumin Folate PTH Intact Urine WBC (Auto) Urine Creatinine Urine Chloride Urine Total Protein Fluid Glucose Fluid Total Protein Vancomycin Trough Miscellaneous Test Crossmatch 05/28/18 05/29/18 05/29/18 17:56 03:35 04:00 WBC RBC Hgb Hct MCHC RDW Plt Count Lymph % (Auto) [place] % (Auto) Lymph # [place] # Seg Neutrophils % Seg Neuts % (Manual) Lymphocytes % (Manual) Seg Neutrophils # Seg Neutrophils # Man Lymphocytes # (Manual) PT INR APTT POC ABG pH 7.471 H POC ABG pCO2 POC ABG pO2 78 L Sodium Potassium Chloride Carbon Dioxide BUN 50 H Creatinine 3.9 H Glucose POC Glucose 110 H Lactic Acid Calcium 7.7 L Phosphorus Magnesium 1.50 L Iron TIBC AST 218 H ALT 204 H Alkaline Phosphatase Total Creatine Kinase C-Reactive Protein Total Protein 5.4 L Albumin 1.6 L Folate PTH Intact Urine WBC (Auto) Urine Creatinine Urine Chloride Urine Total Protein Fluid Glucose Fluid Total Protein Vancomycin Trough Miscellaneous Test Crossmatch 05/29/18 05/29/18 05/30/18 11:51 23:56 04:54 WBC RBC Hgb Hct MCHC RDW Plt Count Lymph % (Auto) [place] % (Auto) Lymph # [place] # Seg Neutrophils % Seg Neuts % (Manual) Lymphocytes % (Manual) Seg Neutrophils # Seg Neutrophils # Man Lymphocytes # (Manual) PT INR APTT POC ABG pH POC ABG pCO2 POC ABG pO2 Sodium Potassium Chloride Carbon Dioxide BUN Creatinine Glucose POC Glucose 131 H 119 H 115 H Lactic Acid Calcium Phosphorus Magnesium Iron TIBC AST ALT Alkaline Phosphatase Total Creatine Kinase C-Reactive Protein Total Protein Albumin Folate PTH Intact Urine WBC (Auto) Urine Creatinine Urine Chloride Urine Total Protein Fluid Glucose Fluid Total Protein Vancomycin Trough Miscellaneous Test Crossmatch 05/30/18 05/30/18 05/30/18 05:07 05:15 05:15 WBC 16.2 H RBC 2.53 L Hgb 7.4 L Hct 21.9 L MCHC RDW Plt Count Lymph % (Auto) [place] % (Auto) Lymph # [place] # Seg Neutrophils % Seg Neuts % (Manual) Lymphocytes % (Manual) Seg Neutrophils # Seg Neutrophils # Man Lymphocytes # (Manual) PT INR APTT POC ABG pH POC ABG pCO2 34.5 L POC ABG pO2 133 H Sodium 135 L Potassium Chloride 97.5 L Carbon Dioxide BUN 69 H Creatinine 5.4 H Glucose 105 H POC Glucose Lactic Acid Calcium 7.5 L Phosphorus 5.30 H D Magnesium Iron TIBC AST ALT Alkaline Phosphatase Total Creatine Kinase C-Reactive Protein Total Protein Albumin Folate PTH Intact Urine WBC (Auto) Urine Creatinine Urine Chloride Urine Total Protein Fluid Glucose Fluid Total Protein Vancomycin Trough Miscellaneous Test Crossmatch 05/30/18 05/30/18 05/31/18 12:13 17:10 04:50 WBC 18.7 H RBC 2.86 L Hgb 8.2 L Hct 24.8 L MCHC RDW Plt Count Lymph % (Auto) [place] % (Auto) Lymph # [place] # Seg Neutrophils % Seg Neuts % (Manual) 91.0 H Lymphocytes % (Manual) 2.0 L Seg Neutrophils # Seg Neutrophils # Man 17.0 H Lymphocytes # (Manual) 0.4 L PT INR APTT POC ABG pH POC ABG pCO2 POC ABG pO2 Sodium Potassium Chloride Carbon Dioxide BUN Creatinine Glucose POC Glucose 132 H 122 H Lactic Acid Calcium Phosphorus Magnesium Iron TIBC AST ALT Alkaline Phosphatase Total Creatine Kinase C-Reactive Protein Total Protein Albumin Folate PTH Intact Urine WBC (Auto) Urine Creatinine Urine Chloride Urine Total Protein Fluid Glucose Fluid Total Protein Vancomycin Trough Miscellaneous Test Crossmatch 05/31/18 05/31/18 05/31/18 04:50 05:45 11:37 WBC RBC Hgb Hct MCHC RDW Plt Count Lymph % (Auto) [place] % (Auto) Lymph # [place] # Seg Neutrophils % Seg Neuts % (Manual) Lymphocytes % (Manual) Seg Neutrophils # Seg Neutrophils # Man Lymphocytes # (Manual) PT INR APTT POC ABG pH POC ABG pCO2 POC ABG pO2 Sodium 132 L Potassium Chloride 92.4 L Carbon Dioxide BUN 77 H Creatinine 5.9 H Glucose POC Glucose 111 H 136 H Lactic Acid Calcium 7.3 L Phosphorus 6.40 H D Magnesium Iron TIBC AST ALT Alkaline Phosphatase Total Creatine Kinase C-Reactive Protein Total Protein Albumin Folate PTH Intact Urine WBC (Auto) Urine Creatinine Urine Chloride Urine Total Protein Fluid Glucose Fluid Total Protein Vancomycin Trough Miscellaneous Test Crossmatch 05/31/18 06/01/18 06/01/18 17:52 00:09 04:00 WBC RBC Hgb Hct MCHC RDW Plt Count Lymph % (Auto) [place] % (Auto) Lymph # [place] # Seg Neutrophils % Seg Neuts % (Manual) Lymphocytes % (Manual) Seg Neutrophils # Seg Neutrophils # Man Lymphocytes # (Manual) PT INR APTT POC ABG pH POC ABG pCO2 POC ABG pO2 Sodium Potassium Chloride 97.5 L Carbon Dioxide BUN 49 H Creatinine 4.2 H Glucose 104 H POC Glucose 115 H 114 H Lactic Acid Calcium 7.3 L Phosphorus 4.70 H D Magnesium Iron TIBC AST ALT Alkaline Phosphatase Total Creatine Kinase C-Reactive Protein Total Protein Albumin Folate PTH Intact Urine WBC (Auto) Urine Creatinine Urine Chloride Urine Total Protein Fluid Glucose Fluid Total Protein Vancomycin Trough Miscellaneous Test Crossmatch 06/01/18 06/01/18 06/02/18 11:10 17:56 00:15 WBC RBC Hgb Hct MCHC RDW Plt Count Lymph % (Auto) [place] % (Auto) Lymph # [place] # Seg Neutrophils % Seg Neuts % (Manual) Lymphocytes % (Manual) Seg Neutrophils # Seg Neutrophils # Man Lymphocytes # (Manual) PT INR APTT POC ABG pH POC ABG pCO2 POC ABG pO2 Sodium Potassium Chloride Carbon Dioxide BUN Creatinine Glucose POC Glucose 123 H 126 H 135 H Lactic Acid Calcium Phosphorus Magnesium Iron TIBC AST ALT Alkaline Phosphatase Total Creatine Kinase C-Reactive Protein Total Protein Albumin Folate PTH Intact Urine WBC (Auto) Urine Creatinine Urine Chloride Urine Total Protein Fluid Glucose Fluid Total Protein Vancomycin Trough Miscellaneous Test Crossmatch 06/02/18 06/02/18 06/02/18 05:23 12:42 13:05 WBC RBC Hgb Hct MCHC RDW Plt Count Lymph % (Auto) [place] % (Auto) Lymph # [place] # Seg Neutrophils % Seg Neuts % (Manual) Lymphocytes % (Manual) Seg Neutrophils # Seg Neutrophils # Man Lymphocytes # (Manual) PT 17.1 H INR 1.34 H APTT POC ABG pH POC ABG pCO2 POC ABG pO2 Sodium Potassium Chloride Carbon Dioxide BUN Creatinine Glucose POC Glucose 135 H 142 H Lactic Acid Calcium Phosphorus Magnesium Iron TIBC AST ALT Alkaline Phosphatase Total Creatine Kinase C-Reactive Protein Total Protein Albumin Folate PTH Intact Urine WBC (Auto) Urine Creatinine Urine Chloride Urine Total Protein Fluid Glucose Fluid Total Protein Vancomycin Trough Miscellaneous Test Crossmatch 06/02/18 06/02/18 06/03/18 Unknown Unknown 00:54 WBC 20.8 H RBC 2.67 L Hgb 7.7 L Hct 23.0 L MCHC RDW Plt Count 500 H Lymph % (Auto) [place] % (Auto) Lymph # [place] # Seg Neutrophils % Seg Neuts % (Manual) Lymphocytes % (Manual) Seg Neutrophils # Seg Neutrophils # Man Lymphocytes # (Manual) PT INR APTT POC ABG pH POC ABG pCO2 POC ABG pO2 Sodium 136 L Potassium 3.5 L Chloride 96.9 L Carbon Dioxide BUN 62 H Creatinine 4.9 H Glucose 133 H POC Glucose 125 H Lactic Acid Calcium 7.2 L Phosphorus 5.00 H Magnesium Iron TIBC AST 46 H ALT 66 H Alkaline Phosphatase Total Creatine Kinase C-Reactive Protein Total Protein 5.7 L Albumin 1.5 L Folate PTH Intact Urine WBC (Auto) Urine Creatinine Urine Chloride Urine Total Protein Fluid Glucose Fluid Total Protein Vancomycin Trough Miscellaneous Test Crossmatch 06/03/18 06/03/18 06/03/18 03:31 09:18 09:18 WBC RBC Hgb Hct MCHC RDW Plt Count Lymph % (Auto) [place] % (Auto) Lymph # [place] # Seg Neutrophils % Seg Neuts % (Manual) Lymphocytes % (Manual) Seg Neutrophils # Seg Neutrophils # Man Lymphocytes # (Manual) PT 17.1 H INR 1.34 H APTT POC ABG pH POC ABG pCO2 POC ABG pO2 Sodium 136 L Potassium Chloride Carbon Dioxide BUN 41 H Creatinine 3.4 H Glucose 129 H POC Glucose Lactic Acid Calcium 7.4 L Phosphorus Magnesium Iron TIBC AST ALT Alkaline Phosphatase Total Creatine Kinase C-Reactive Protein 11.10 H Total Protein Albumin Folate PTH Intact Urine WBC (Auto) Urine Creatinine Urine Chloride Urine Total Protein Fluid Glucose Fluid Total Protein Vancomycin Trough Miscellaneous Test Crossmatch 06/03/18 06/03/18 06/03/18 16:07 21:18 Unknown WBC RBC Hgb Hct MCHC RDW Plt Count Lymph % (Auto) [place] % (Auto) Lymph # [place] # Seg Neutrophils % Seg Neuts % (Manual) Lymphocytes % (Manual) Seg Neutrophils # Seg Neutrophils # Man Lymphocytes # (Manual) PT INR APTT POC ABG pH POC ABG pCO2 POC ABG pO2 Sodium Potassium Chloride Carbon Dioxide BUN Creatinine Glucose POC Glucose 144 H 128 H Lactic Acid Calcium Phosphorus Magnesium Iron TIBC AST ALT Alkaline Phosphatase Total Creatine Kinase C-Reactive Protein Total Protein Albumin Folate PTH Intact Urine WBC (Auto) Urine Creatinine Urine Chloride Urine Total Protein Fluid Glucose 10 L Fluid Total Protein 3.7 L Vancomycin Trough Miscellaneous Test Crossmatch 06/04/18 06/04/18 06/04/18 04:31 06:14 11:38 WBC RBC Hgb Hct MCHC RDW Plt Count Lymph % (Auto) [place] % (Auto) Lymph # [place] # Seg Neutrophils % Seg Neuts % (Manual) Lymphocytes % (Manual) Seg Neutrophils # Seg Neutrophils # Man Lymphocytes # (Manual) PT INR APTT POC ABG pH POC ABG pCO2 POC ABG pO2 Sodium Potassium Chloride Carbon Dioxide BUN 55 H Creatinine 3.7 H Glucose 151 H POC Glucose 145 H 129 H Lactic Acid Calcium 7.8 L Phosphorus 4.60 H Magnesium Iron TIBC AST ALT Alkaline Phosphatase Total Creatine Kinase C-Reactive Protein Total Protein Albumin Folate PTH Intact Urine WBC (Auto) Urine Creatinine Urine Chloride Urine Total Protein Fluid Glucose Fluid Total Protein Vancomycin Trough Miscellaneous Test Crossmatch 06/04/18 06/04/18 06/04/18 17:09 20:00 21:29 WBC RBC Hgb 8.8 L Hct 27.3 L MCHC RDW Plt Count Lymph % (Auto) [place] % (Auto) Lymph # [place] # Seg Neutrophils % Seg Neuts % (Manual) Lymphocytes % (Manual) Seg Neutrophils # Seg Neutrophils # Man Lymphocytes # (Manual) PT INR APTT POC ABG pH POC ABG pCO2 POC ABG pO2 Sodium Potassium Chloride Carbon Dioxide BUN Creatinine Glucose POC Glucose 142 H 130 H Lactic Acid Calcium Phosphorus Magnesium Iron TIBC AST ALT Alkaline Phosphatase Total Creatine Kinase C-Reactive Protein Total Protein Albumin Folate PTH Intact Urine WBC (Auto) Urine Creatinine Urine Chloride Urine Total Protein Fluid Glucose Fluid Total Protein Vancomycin Trough Miscellaneous Test Crossmatch 06/05/18 06/05/18 06/05/18 06:30 07:00 07:00 WBC 19.3 H RBC 2.94 L Hgb 8.3 L Hct 25.6 L MCHC RDW 15.7 H Plt Count 568 H Lymph % (Auto) 4.7 L [place] % (Auto) Lymph # 0.9 L [place] # 1.1 H Seg Neutrophils % 88.9 H Seg Neuts % (Manual) Lymphocytes % (Manual) Seg Neutrophils # 17.2 H Seg Neutrophils # Man Lymphocytes # (Manual) PT INR APTT POC ABG pH POC ABG pCO2 POC ABG pO2 Sodium Potassium 3.4 L D Chloride Carbon Dioxide BUN 67 H Creatinine 3.6 H Glucose 145 H POC Glucose 153 H Lactic Acid Calcium 7.9 L Phosphorus 4.60 H Magnesium Iron TIBC AST ALT Alkaline Phosphatase Total Creatine Kinase C-Reactive Protein Total Protein Albumin Folate PTH Intact Urine WBC (Auto) Urine Creatinine Urine Chloride Urine Total Protein Fluid Glucose Fluid Total Protein Vancomycin Trough Miscellaneous Test Crossmatch 06/05/18 06/05/18 06/06/18 12:10 16:01 06:39 WBC RBC Hgb Hct MCHC RDW Plt Count Lymph % (Auto) [place] % (Auto) Lymph # [place] # Seg Neutrophils % Seg Neuts % (Manual) Lymphocytes % (Manual) Seg Neutrophils # Seg Neutrophils # Man Lymphocytes # (Manual) PT INR APTT POC ABG pH POC ABG pCO2 POC ABG pO2 Sodium Potassium Chloride Carbon Dioxide BUN Creatinine Glucose POC Glucose 150 H 129 H 131 H Lactic Acid Calcium Phosphorus Magnesium Iron TIBC AST ALT Alkaline Phosphatase Total Creatine Kinase C-Reactive Protein Total Protein Albumin Folate PTH Intact Urine WBC (Auto) Urine Creatinine Urine Chloride Urine Total Protein Fluid Glucose Fluid Total Protein Vancomycin Trough Miscellaneous Test Crossmatch 06/06/18 06/06/18 06/06/18 07:14 07:14 07:14 WBC 16.5 H RBC 2.84 L Hgb 8.1 L Hct 25.2 L MCHC RDW 16.4 H Plt Count 526 H Lymph % (Auto) 6.5 L [place] % (Auto) Lymph # 1.1 L [place] # 1.2 H Seg Neutrophils % 85.3 H Seg Neuts % (Manual) Lymphocytes % (Manual) Seg Neutrophils # 14.1 H Seg Neutrophils # Man Lymphocytes # (Manual) PT INR APTT POC ABG pH POC ABG pCO2 POC ABG pO2 Sodium Potassium Chloride 109.1 H Carbon Dioxide 21 L BUN 76 H Creatinine 3.5 H Glucose 111 H POC Glucose Lactic Acid Calcium 8.1 L Phosphorus Magnesium Iron TIBC AST ALT Alkaline Phosphatase Total Creatine Kinase C-Reactive Protein 4.70 H Total Protein Albumin Folate PTH Intact Urine WBC (Auto) Urine Creatinine Urine Chloride Urine Total Protein Fluid Glucose Fluid Total Protein Vancomycin Trough Miscellaneous Test Crossmatch 06/06/18 06/06/18 06/06/18 11:15 18:00 23:58 WBC RBC Hgb Hct MCHC RDW Plt Count Lymph % (Auto) [place] % (Auto) Lymph # [place] # Seg Neutrophils % Seg Neuts % (Manual) Lymphocytes % (Manual) Seg Neutrophils # Seg Neutrophils # Man Lymphocytes # (Manual) PT INR APTT POC ABG pH POC ABG pCO2 POC ABG pO2 Sodium Potassium Chloride Carbon Dioxide BUN Creatinine Glucose POC Glucose 127 H 130 H 114 H Lactic Acid Calcium Phosphorus Magnesium Iron TIBC AST ALT Alkaline Phosphatase Total Creatine Kinase C-Reactive Protein Total Protein Albumin Folate PTH Intact Urine WBC (Auto) Urine Creatinine Urine Chloride Urine Total Protein Fluid Glucose Fluid Total Protein Vancomycin Trough Miscellaneous Test Crossmatch 06/07/18 06/07/18 06/07/18 05:45 05:45 05:54 WBC 15.5 H RBC 2.60 L Hgb 7.4 L Hct 23.1 L MCHC RDW 16.5 H Plt Count 506 H Lymph % (Auto) 5.3 L [place] % (Auto) Lymph # 0.8 L [place] # 1.0 H Seg Neutrophils % 86.6 H Seg Neuts % (Manual) Lymphocytes % (Manual) Seg Neutrophils # 13.4 H Seg Neutrophils # Man Lymphocytes # (Manual) PT INR APTT POC ABG pH POC ABG pCO2 POC ABG pO2 Sodium Potassium Chloride 108.4 H Carbon Dioxide BUN 84 H Creatinine 3.5 H Glucose 119 H POC Glucose 114 H Lactic Acid Calcium 8.1 L Phosphorus 5.10 H Magnesium Iron TIBC AST ALT Alkaline Phosphatase Total Creatine Kinase C-Reactive Protein Total Protein Albumin Folate PTH Intact Urine WBC (Auto) Urine Creatinine Urine Chloride Urine Total Protein Fluid Glucose Fluid Total Protein Vancomycin Trough Miscellaneous Test Crossmatch 06/07/18 06/08/18 06/08/18 12:15 05:05 05:24 WBC RBC Hgb Hct MCHC RDW Plt Count Lymph % (Auto) [place] % (Auto) Lymph # [place] # Seg Neutrophils % Seg Neuts % (Manual) Lymphocytes % (Manual) Seg Neutrophils # Seg Neutrophils # Man Lymphocytes # (Manual) PT INR APTT POC ABG pH POC ABG pCO2 POC ABG pO2 Sodium 148 H Potassium Chloride 112.4 H Carbon Dioxide BUN 89 H Creatinine 3.4 H Glucose 120 H POC Glucose 148 H 115 H Lactic Acid Calcium 7.9 L Phosphorus Magnesium Iron TIBC AST ALT Alkaline Phosphatase Total Creatine Kinase C-Reactive Protein Total Protein Albumin Folate PTH Intact Urine WBC (Auto) Urine Creatinine Urine Chloride Urine Total Protein Fluid Glucose Fluid Total Protein Vancomycin Trough Miscellaneous Test Crossmatch Allied health notes reviewed: nursing
--- NOTE | 2018-06-08 13:19 | Progress Note ---
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 Continue pain control PRN Bilateral pneumonia (possibly aspiration) Monitor respiratory status Continue Nebs PRN Continue antibiotic Sepsis Continue cefepime, metrodazole Acute kidney injury (obstructive uropathy vs contrast nephropathy) HD per nephrology Continue to monitor BMP and kidney fuction Had bilateral nephrostomy tubes placed 05/14/[address] Freeman. Acute deep venous thrombosis Anticoagulation on hold because of anemia, bilateral nephrostomy tubes and abdominal issues Moderate to severe protein calorie malnutrition Continue tube feeding Hypokalemia Potassium and mag replacement as needed Anemia likely due to Chronic illness Plan: For family meeting tomorrow. History Interval history: feels better, less abdominal pain Hospitalist Physical - Physical exam Narrative exam: GEN:Not in acute distress, lying in bed, very ill looking, HEENT: Normocephalic, atraumatic, Neck: supple, No JVD Lungs: Clear to auscultaion bilaterally, no crackles Heart:S1 and S2 regular no murmurs, rubs or gallop Abd:soft, mild tender, ostomy, bilat nephrostomy tubes, bowel sounds present Ext: No edema, clubbing or cyanosis Neuro: Awake, alert,oriented - Constitutional Vitals: Temp Pulse Resp BP Pulse Ox 98.4 F 121 H 21 171/96 93 06/08/18 07:59 06/08/18 07:59 06/08/18 07:59 06/08/18 07:59 06/08/18 10:00 General appearance: Present: no acute distress Results - Labs CBC & Chem 7: 06/08/18 21:43 06/08/18 05:24 Labs: Laboratory Last Values WBC 15.5 K/mm3 (4.5-11.0) H 06/07/18 05:45 RBC 2.60 M/mm3 (3.65-5.03) L 06/07/18 05:45 Hgb 7.4 gm/dl (11.8-15.2) L 06/07/18 05:45 Hct 23.1 % (35.5-45.6) L 06/07/18 05:45 MCV 89 fl (84-94) 06/07/18 05:45 MCH 28 pg (28-32) 06/07/18 05:45 MCHC 32 % (32-34) 06/07/18 05:45 RDW 16.5 % (13.2-15.2) H 06/07/18 05:45 Plt Count 506 K/mm3 (140-440) H 06/07/18 05:45 Lymph % (Auto) 5.3 % (13.4-35.0) L 06/07/18 05:45 [place] % (Auto) 6.7 % (0.0-7.3) 06/07/18 05:45 Eos % (Auto) 0.5 % (0.0-4.3) 06/07/18 05:45 Baso % (Auto) 0.9 % (0.0-1.8) 06/07/18 05:45 Lymph # 0.8 K/mm3 (1.2-5.4) L 06/07/18 05:45 [place] # 1.0 K/mm3 (0.0-0.8) H 06/07/18 05:45 Eos # 0.1 K/mm3 (0.0-0.4) 06/07/18 05:45 Baso # 0.1 K/mm3 (0.0-0.1) 06/07/18 05:45 Add Manual Diff Complete 05/31/18 04:50 Total Counted 100 05/31/18 04:50 Seg Neutrophils % 86.6 % (40.0-70.0) H 06/07/18 05:45 Seg Neuts % (Manual) 91.0 % (40.0-70.0) H 05/31/18 04:50 Band Neutrophils % 2.0 % 05/31/18 04:50 Lymphocytes % (Manual) 2.0 % (13.4-35.0) L 05/31/18 04:50 Reactive Lymphs % (Man) 0 % 05/31/18 04:50 Monocytes % (Manual) 2.0 % (0.0-7.3) 05/31/18 04:50 Eosinophils % (Manual) 1.0 % (0.0-4.3) 05/31/18 04:50 Basophils % (Manual) 0 % (0.0-1.8) 05/31/18 04:50 Metamyelocytes % 1.0 % 05/31/18 04:50 Myelocytes % 1.0 % 05/31/18 04:50 Promyelocytes % 0 % 05/31/18 04:50 Blast Cells % 0 % 05/31/18 04:50 Nucleated RBC % Not Reportable 05/31/18 04:50 Seg Neutrophils # 13.4 K/mm3 (1.8-7.7) H 06/07/18 05:45 Seg Neutrophils # Man 17.0 K/mm3 (1.8-7.7) H 05/31/18 04:50 Band Neutrophils # 0.4 K/mm3 05/31/18 04:50 Lymphocytes # (Manual) 0.4 K/mm3 (1.2-5.4) L 05/31/18 04:50 Abs React Lymphs (Man) 0.0 K/mm3 05/31/18 04:50 Monocytes # (Manual) 0.4 K/mm3 (0.0-0.8) 05/31/18 04:50 Eosinophils # (Manual) 0.2 K/mm3 (0.0-0.4) 05/31/18 04:50 Basophils # (Manual) 0.0 K/mm3 (0.0-0.1) 05/31/18 04:50 Metamyelocytes # 0.2 K/mm3 05/31/18 04:50 Myelocytes # 0.2 K/mm3 05/31/18 04:50 Promyelocytes # 0.0 K/mm3 05/31/18 04:50 Blast Cells # 0.0 K/mm3 05/31/18 04:50 WBC Morphology Not Reportable 05/31/18 04:50 Hypersegmented Neuts Not Reportable 05/31/18 04:50 Hyposegmented Neuts Not Reportable 05/31/18 04:50 Hypogranular Neuts Not Reportable 05/31/18 04:50 Smudge Cells Not Reportable 05/31/18 04:50 Toxic Granulation Not Reportable 05/31/18 04:50 Toxic Vacuolation Not Reportable 05/31/18 04:50 Dohle Bodies Not Reportable 05/31/18 04:50 Pelger-Huet Anomaly Not Reportable 05/31/18 04:50 Mahesh Rods Not Reportable 05/31/18 04:50 Platelet Estimate Appears normal 05/31/18 04:50 Clumped Platelets Not Reportable 05/31/18 04:50 Plt Clumps, EDTA Not Reportable 05/31/18 04:50 Large Platelets Not Reportable 05/31/18 04:50 Giant Platelets Not Reportable 05/31/18 04:50 Platelet Satelliting Not Reportable 05/31/18 04:50 Plt Morphology Comment Not Reportable 05/31/18 04:50 RBC Morphology Not Reportable 05/31/18 04:50 Dimorphic RBCs Not Reportable 05/31/18 04:50 Polychromasia Not Reportable 05/31/18 04:50 Hypochromasia Few 05/31/18 04:50 Poikilocytosis Not Reportable 05/31/18 04:50 Anisocytosis 1+ 05/31/18 04:50 Microcytosis Few 05/31/18 04:50 Macrocytosis Not Reportable 05/31/18 04:50 Spherocytes Not Reportable 05/31/18 04:50 Pappenheimer Bodies Not Reportable 05/31/18 04:50 Sickle Cells Not Reportable 05/31/18 04:50 Target Cells Rare 05/31/18 04:50 Tear Drop Cells Not Reportable 05/31/18 04:50 Ovalocytes 1+ 05/31/18 04:50 Helmet Cells Not Reportable 05/31/18 04:50 Hernandez-[place] Bodies Not Reportable 05/31/18 04:50 Simms Rings Not Reportable 05/31/18 04:50 Nory Cells Not Reportable 05/31/18 04:50 Bite Cells Not Reportable 05/31/18 04:50 Crenated Cell Not Reportable 05/31/18 04:50 Elliptocytes Not Reportable 05/31/18 04:50 Acanthocytes (Spur) Not Reportable 05/31/18 04:50 Rouleaux Not Reportable 05/31/18 04:50 Hemoglobin C Crystals Not Reportable 05/31/18 04:50 Schistocytes Not Reportable 05/31/18 04:50 Malaria parasites Not Reportable 05/31/18 04:50 Mk Bodies Not Reportable 05/31/18 04:50 Hem Pathologist Commnt No 05/31/18 04:50 PT 17.1 Sec. (12.2-14.9) H 06/03/18 09:18 INR 1.34 (0.87-1.13) H 06/03/18 09:18 APTT 40.0 Sec. (24.2-36.6) H 05/23/18 09:03 POC ABG pH 7.362 (7.35-7.45) 05/31/18 09:58 POC ABG pCO2 36.4 (35-45) 05/31/18 09:58 POC ABG pO2 101 (80-105) 05/31/18 09:58 POC ABG HCO3 20.7 05/31/18 09:58 POC ABG Total CO2 22 05/31/18 09:58 POC ABG O2 Sat 98 05/31/18 09:58 POC ABG Base Excess -5 05/31/18 09:58 FiO2 40 % 05/31/18 09:58 Sodium 148 mmol/L (137-145) H 06/08/18 05:24 Potassium 3.7 mmol/L (3.6-5.0) 06/08/18 05:24 Chloride 112.4 mmol/L (98-107) H 06/08/18 05:24 Carbon Dioxide 22 mmol/L (22-30) 06/08/18 05:24 Anion Gap 17 mmol/L 06/08/18 05:24 BUN 89 mg/dL (9-20) H 06/08/18 05:24 Creatinine 3.4 mg/dL (0.8-1.5) H 06/08/18 05:24 Estimated GFR 23 ml/min 06/08/18 05:24 BUN/Creatinine Ratio 26 % 06/08/18 05:24 Glucose 120 mg/dL (75-100) H 06/08/18 05:24 POC Glucose 115 (70-105) H 06/08/18 05:05 Hemoglobin A1c 5.7 % (4-6) 05/14/18 05:05 Lactic Acid 3.80 mmol/L (0.7-2.0) H* 05/26/18 11:00 Calcium 7.9 mg/dL (8.4-10.2) L 06/08/18 05:24 Phosphorus 4.30 mg/dL (2.5-4.5) 06/08/18 05:24 Magnesium 1.70 mg/dL (1.7-2.3) 06/08/18 05:24 Iron 24 ug/dL (49-181) L 05/16/18 07:02 TIBC 160 mcg/dL (250-450) L 05/16/18 07:02 Ferritin 325.8 ng/mL (13.0-400.0) 05/16/18 07:02 Total Bilirubin 0.50 mg/dL (0.1-1.2) 06/02/18 Unknown AST 46 units/L (5-40) H 06/02/18 Unknown ALT 66 units/L (7-56) H 06/02/18 Unknown Alkaline Phosphatase 119 units/L (35-129) 06/02/18 Unknown Total Creatine Kinase 156 units/L (55-170) 05/25/18 22:46 CK-MB (CK-2) 2.3 ng/mL (0.0-4.0) 05/25/18 22:46 CK-MB (CK-2) Rel Index 1.4 (0-4) 05/25/18 22:46 C-Reactive Protein 4.70 mg/dL (0.00-1.30) H 06/06/18 07:14 Total Protein 5.7 g/dL (6.3-8.2) L 06/02/18 Unknown Albumin 1.5 g/dL (3.9-5) L 06/02/18 Unknown Albumin/Globulin Ratio 0.4 % 06/02/18 Unknown Triglycerides 112 mg/dL (2-149) 06/03/18 03:31 Prostate Specific Ag 0.96 ng/mL (0.00-4.00) 05/14/18 13:29 Vitamin B12 359.2 pg/mL (211-911) 05/16/18 07:02 Folate 5.39 ng/mL (7.3-26.0) L 05/16/18 07:02 TSH 3.180 mlU/mL (0.270-4.200) 05/14/18 05:05 PTH Intact 65.37 pg/mL (15-65) H 05/14/18 05:05 Urine Color [place] (Yellow) 05/27/18 Unknown Urine Turbidity Cloudy (Clear) 05/27/18 Unknown Urine pH 5.0 (5.0-7.0) 05/27/18 Unknown Ur Specific [place] 1.026 (1.003-1.030) 05/27/18 Unknown Urine Protein 100 mg/dl mg/dL (Negative) 05/27/18 Unknown Urine Glucose (UA) 50 mg/dL (Negative) 05/27/18 Unknown Urine Ketones Neg mg/dL (Negative) 05/27/18 Unknown Urine Blood Lg (Negative) 05/27/18 Unknown Urine Nitrite Neg (Negative) 05/27/18 Unknown Urine Bilirubin Neg (Negative) 05/27/18 Unknown Urine Urobilinogen < 2.0 mg/dL (<2.0) 05/27/18 Unknown Ur Leukocyte Esterase Mod (Negative) 05/27/18 Unknown Urine WBC (Auto) 120.0 /HPF (0.0-6.0) H 05/27/18 Unknown Urine RBC (Auto) 35.0 /HPF (0.0-6.0) 05/27/18 Unknown U Epithel Cells (Auto) 3.0 /HPF (0-13.0) 05/27/18 Unknown Urine Bacteria (Auto) 1+ /HPF (Negative) 05/27/18 Unknown Urine WBC Clumps Few /HPF 05/13/18 19:39 Urine Mucus Few /HPF 05/27/18 Unknown Urine Yeast (Budding) 2+ /HPF 05/21/18 15:30 Urine Creatinine 66.0 mg/dL (0.1-20.0) H 05/13/18 19:39 Urine Sodium 60 mmol/L 05/13/18 19:39 Urine Potassium 8.69 mmol/L 05/13/18 19:39 Urine Chloride 27.8 mmolL (110-250) L 05/13/18 19:39 Urine Total Protein 24 mg/dL (5-11.8) H 05/13/18 19:39 Fluid Type Ascitic 06/03/18 Unknown Fluid Color Yellow 06/03/18 Unknown Fluid Appearance Cloudy 06/03/18 Unknown Fluid WBC 50662 /mm3 06/03/18 Unknown Fluid RBC 9 /mm3 06/03/18 Unknown Fluid Seg Neutrophils 98.0 % 06/03/18 Unknown Fluid Lymphocytes 2.0 % 06/03/18 Unknown Fluid Reactive Lymphs 0 % 06/03/18 Unknown Fluid Monocytes 0 % 06/03/18 Unknown Fluid Eosinophils 0 % 06/03/18 Unknown Fluid Basophils 0 % 06/03/18 Unknown Fluid Glucose 10 mg/dL (40-70) L 06/03/18 Unknown Fluid Total Protein 3.7 (15.0-45.0) L 06/03/18 Unknown Fluid Albumin 0.8 g/dL 06/03/18 Unknown Fluid LDH > 75792 06/03/18 Unknown Fluid Amylase 126 06/03/18 Unknown Vancomycin Trough 25.1 ug/mL (5.0-20.0) H 05/25/18 22:46 Random Vancomycin 34.3 ug/mL (0-40.0) 05/26/18 11:01 Urine Opiates Screen Presumptive negative 05/13/18 19:39 Urine Methadone Screen Presumptive negative 05/13/18 19:39 Ur Barbiturates Screen Presumptive negative 05/13/18 19:39 Ur Phencyclidine Scrn Presumptive negative 05/13/18 19:39 Ur Amphetamines Screen Presumptive negative 05/13/18 19:39 U Benzodiazepines Scrn Presumptive negative 05/13/18 19:39 Urine Cocaine Screen Presumptive negative 05/13/18 19:39 U Marijuana (THC) Screen Presumptive negative 05/13/18 19:39 Drugs of Abuse Note Disclamer 05/13/18 19:39 ZEUS Screen Negative (Negative) 05/14/18 05:05 Proteinase 3 (PR3) Ab <1.0 AI (<1.0) 05/14/18 05:05 Myeloperoxidase Ab <1.0 AI (<1.0) 05/14/18 05:05 Complement C3 147 mg/dL (82-185) 05/14/18 05:05 Complement C4 45 mg/dL (15-53) 05/14/18 05:05 Hepatitis A IgM Ab Nonreactive (NonReactive) 05/27/18 13:41 Hep Bs Antigen Non-reactive (Negative) 05/27/18 13:41 Hep B Core IgM Ab Non-reactive (NonReactive) 05/27/18 13:41 Hepatitis C Antibody Non-reactive (NonReactive) 05/27/18 13:41 Miscellaneous Test Flexitest 1 H 05/27/18 13:02 Blood Type O POSITIVE 06/02/18 13:05 Antibody Screen Negative 06/02/18 13:05 Crossmatch See Detail 05/22/18 11:23
--- NOTE | 2018-06-08 15:56 | Fluoroscopy Report ---
SMALL BOWEL SERIES: INDICATION: Small bowel obstruction. COMPARISON: 06/05/2018 abdominal series. IMAGES/CINE CLIPS: 8 FINDINGS: Small bowel series performed using Gastrografin with methylene blue added to it. Manager [employer] view demonstrates bilateral percutaneous nephrostomy tubes, right groin catheter and a left flank percutaneous drain. Few air-containing mid abdominal small bowel loops measure up to 3.2 cm caliber. Possible cecal air in the right lower quadrant. Serial abdominal radiographs subsequently obtained after administration of oral contrast and demonstrate normal antegrade progression with small bowel transit time of 2 hours. Few mid abdominal opacified small bowel loops measure up to 3.8 cm caliber. No focal suspicious filling defects. CONCLUSION: No evidence of small bowel obstruction with various iatrogenic changes noted, as described. Thank you for the opportunity to participate in this patient's care.
--- NOTE | 2018-06-08 16:12 | Progress Note ---
Assessment and Plan Assessment: 1) Sepsis: still low grade fever and leukocytosis. Etiology unclear - most likely necrotic malignancy ? abscess +/- UTI +/- LLL pneumonia -Blood cx 05/15 neg, 05/20 neg, 05/26 neg -CRP=40 -->11 -Procal=79 2) Complicated UTI: repeat UA 05/21 28 wbc, trace LE. 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 Enlarged pelvic lymph nodes, bilateral hydronephrosis. -S/p 05/14/18 left and right nephrostomy tube placements and mass biopsy -S/p 05/18/2018 cystoscopy with right great toe pyelogram found to have a bladder mass and prostate mass -S/p 05/26/18 diverting colostomy. 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 suggesting necrosis. Cannot exclude superimposed infectious process. -Paracenthesis 06/03 + MSSE 4) LLL pneumonia, sputum cx + Yeast 5) MARYLOU 6) Weight loss Plan: -to have SBFT today -to attempt po liq diet if contrast flows thru without obstruction per surgery -continue zosyn renally dosed to covered both anaerobic GNR and Staph epi -upon discharge will do zosyn IV 2.25 g q12 while on HD total 3 weeks until . This are preliminary orders, may need to be adjusted depending on new CT guided drainage and renal recovery. -monitor fever Thank you for your consultation, will follow up with you. Sugey Garcia MD Infectious Diseases Specialist [facility] ([facility]) M [phone] O [phone] Subjective Date of service: 06/08/18 Principal diagnosis: Acute Hypoxemic Resp Failure; Sepsis Syndrome; Acute VTE; Prostate Cancer Interval history: alert talking. no fever Microbiology: Blood cultures: 05/15 neg 05/20 neg 05/26 ngtd Urine cultures: 05/21 neg 05/27 neg Sputum: 05/27 yeast OR cultures: 05/26 Bacteroides fragilis peritoneal fluid 06/03 MSSE Current Antimicrobials: 05/27 cefepime, flagyl Previous Antimicrobials: Zosyn 05/19 zyvox Levaquin 05/26 Objective - Exam Narrative Exam: General appearance: Alert in NAD, nonconversant Eyes: anicteric sclerae, moist conjunctivae; no lid-lag; PERRLA HENT: Atraumatic; oropharynx +EET +NGT. Normal external ears. +temporal wasting Neck: Trachea midline; supple, no thyromegaly or lymphadenopathy Lungs: amy rhonchi CV: RRR, no murmurs Abdomen: Soft, +diverting colostomy +multiple drains and amy PC nephros Extremities: No peripheral edema or extremity lymphadenopathy Skin: Normal temperature, turgor and texture; no rash, ulcers or subcutaneous nodules Psych: sedated. Neuro: sedated Lines: right fem line, right IJ - Constitutional Vitals: Vital Signs Temp Pulse Resp BP Pulse Ox 98.4 F 86 21 171/96 93 06/08/18 07:59 06/08/18 11:00 06/08/18 07:59 06/08/18 07:59 06/08/18 10:00 Temperature -Last 24 Hours Temperature 98.4 F Temperature 97.9 F Temperature 98.3 F Temperature 98.3 F - Labs CBC & Chem 7: 06/07/18 05:45 06/08/18 05:24 Labs: Abnormal lab results 06/03/18 06/07/18 06/08/18 Range/Units Unknown 12:15 05:05 Sodium (137-145) mmol/L Chloride (98-107) mmol/L BUN (9-20) mg/dL Creatinine (0.8-1.5) mg/dL Glucose (75-100) mg/dL POC Glucose 148 H 115 H (70-105) Calcium (8.4-10.2) mg/dL Fluid Glucose 10 L (40-70) mg/dL Fluid Total Protein 3.7 L (15.0-45.0) 06/08/18 Range/Units 05:24 Sodium 148 H (137-145) mmol/L Chloride 112.4 H (98-107) mmol/L BUN 89 H (9-20) mg/dL Creatinine 3.4 H (0.8-1.5) mg/dL Glucose 120 H (75-100) mg/dL POC Glucose (70-105) Calcium 7.9 L (8.4-10.2) mg/dL Fluid Glucose (40-70) mg/dL Fluid Total Protein (15.0-45.0)
[2018-06-08] MEDS ORDERED: NACL 0.9% 500 ML IR ONE (17:42)
[2018-06-08] MEDS ORDERED: NACL 0.9% 1000 ML 0 ML ONE (17:56)
[2018-06-08] MEDS ORDERED: TPN ADULT 2,016 ML IV SCH (20:00)
--- NOTE | 2018-06-08 20:35 | Progress Note ---
Assessment and Plan Called by RN secondary to concerns that "wd is opening up". Pt feeling well without compl. SBFT no evidence of obstruction retention sutures in place. no evidence of dehiscence or evisceration. But ostomy leaking around bag. wd cleansed with betadine and ostomy bag replaced. Abd binder also re-placed. Need ET nurse to place new parastomal hernia abd binder in am as well as wd vac to lower wd. will wait to attempt to feed pt until ostomy well secured as there will be increased stool and liq from ostomy site once po diet is attempted. Objective Vital Signs - 12hr 06/08/18 06/08/18 06/08/18 10:00 11:00 16:21 Pulse Rate 86 96 H Respiratory 18 Rate Blood Pressure 171/108 O2 Sat by Pulse 93 93 Oximetry - Labs 06/07/18 05:45 06/08/18 05:24 Diabetes panel 06/08/18 Range/Units 05:24 Sodium 148 H (137-145) mmol/L Potassium 3.7 (3.6-5.0) mmol/L Chloride 112.4 H (98-107) mmol/L Carbon Dioxide 22 (22-30) mmol/L BUN 89 H (9-20) mg/dL Creatinine 3.4 H (0.8-1.5) mg/dL Glucose 120 H (75-100) mg/dL Calcium 7.9 L (8.4-10.2) mg/dL Calcium panel 06/08/18 Range/Units 05:24 Calcium 7.9 L (8.4-10.2) mg/dL Phosphorus 4.30 (2.5-4.5) mg/dL Pituitary panel 06/08/18 Range/Units 05:24 Sodium 148 H (137-145) mmol/L Potassium 3.7 (3.6-5.0) mmol/L Chloride 112.4 H (98-107) mmol/L Carbon Dioxide 22 (22-30) mmol/L BUN 89 H (9-20) mg/dL Creatinine 3.4 H (0.8-1.5) mg/dL Glucose 120 H (75-100) mg/dL Calcium 7.9 L (8.4-10.2) mg/dL Adrenal panel 06/08/18 Range/Units 05:24 Sodium 148 H (137-145) mmol/L Potassium 3.7 (3.6-5.0) mmol/L Chloride 112.4 H (98-107) mmol/L Carbon Dioxide 22 (22-30) mmol/L BUN 89 H (9-20) mg/dL Creatinine 3.4 H (0.8-1.5) mg/dL Glucose 120 H (75-100) mg/dL Calcium 7.9 L (8.4-10.2) mg/dL
--- NOTE | 2018-06-08 20:40 | Progress Note ---
Assessment and Plan - Patient Problems (1) Acute renal failure Current Visit: Yes Status: Acute Qualifiers: Acute renal failure type: unspecified Qualified Code(s): N17.9 - Acute kidney failure, unspecified Plan to address problem: Follow renal service. (2) Edema Current Visit: Yes Status: Acute Qualifiers: Edema type: unspecified Qualified Code(s): R60.9 - Edema, unspecified Plan to address problem: Due in part to overall tumor burden., and may be poor protien. (3) Pelvic mass in male Current Visit: Yes Status: Acute Plan to address problem: consistent with SQ cell histology, REC remains the same. see notes. (4) Sepsis Current Visit: Yes Status: Acute Plan to address problem: treat underlying issues. Follow ID rec. Subjective Date of service: 06/08/18 Principal diagnosis: Acute Hypoxemic Resp Failure; Sepsis Syndrome; Acute VTE; Prostate Cancer Interval history: I am covering DR Oates/PM group.Patient seen, resting in bed, records reviewed, cbc fair. Prostate bx with Squamous histology. REC remains the same until any further conclusive results.Treat other co morbid issues.WBC19.3, H/h8.3/25, [id number]. Covering DR Plunkett. Patient seen,resting in bed, records reviewed. Hgb dropped by o.2 very insignificant. Sill covering DR Plunkett, patient seen, resting in bed, nothing new.records reviewed. Covering DR Plunkett. Patient seen/examined, records reviewed, case d/w patient at the bed side.Will do another lab, speak with Pathology tomorrow. Family meeting set for tomorrow. Objective - Constitutional Vitals: Vital Signs - 12hr 06/08/18 06/08/18 06/08/18 10:00 11:00 16:21 Pulse Rate 86 96 H Respiratory 18 Rate Blood Pressure 171/108 O2 Sat by Pulse 93 93 Oximetry General appearance: Present: mild distress - EENT Eyes: PERRL, EOM intact ENT: hearing intact, clear oral mucosa Ears: bilateral: normal - Neck Neck: supple, normal ROM - Respiratory Respiratory: bilateral: diminished - Breasts Breasts: deferred - Cardiovascular Rhythm: regular Heart Sounds: Present: S1 & S2. Absent: gallop, rub Extremities: pulses intact, No edema, normal color, Full ROM - Gastrointestinal General gastrointestinal: Present: soft, non-tender, non-distended, normal bowel sounds Rectal Exam: deferred - Genitourinary Male genitourinary: deferred - Integumentary Integumentary: clear, warm, dry - Musculoskeletal Musculoskeletal: 1, strength equal bilaterally - Neurologic Neurologic: moves all extremities - Psychiatric Psychiatric: memory intact, appropriate mood/affect, intact judgment & insight - Labs CBC & Chem 7: 06/07/18 05:45 06/08/18 05:24 Labs: Abnormal lab results 06/03/18 06/07/18 06/08/18 Range/Units Unknown 12:15 05:05 Sodium (137-145) mmol/L Chloride (98-107) mmol/L BUN (9-20) mg/dL Creatinine (0.8-1.5) mg/dL Glucose (75-100) mg/dL POC Glucose 148 H 115 H (70-105) Calcium (8.4-10.2) mg/dL Fluid Glucose 10 L (40-70) mg/dL Fluid Total Protein 3.7 L (15.0-45.0) 06/08/18 Range/Units 05:24 Sodium 148 H (137-145) mmol/L Chloride 112.4 H (98-107) mmol/L BUN 89 H (9-20) mg/dL Creatinine 3.4 H (0.8-1.5) mg/dL Glucose 120 H (75-100) mg/dL POC Glucose (70-105) Calcium 7.9 L (8.4-10.2) mg/dL Fluid Glucose (40-70) mg/dL Fluid Total Protein (15.0-45.0)
[2018-06-08 22:15] LABS: Basophils # (Auto) 0.1 K/mm3 (0.0-0.1); Basophils % (Auto) 1.3 % (0.0-1.8); Eosinophils % (Auto) 0.3 % (0.0-4.3); Hematocrit 26.6 % (35.5-45.6); Hemoglobin 8.8 gm/dl (11.8-15.2); Lymphocytes # (Auto) 0.8 K/mm3 (1.2-5.4); Lymphocytes % (Auto) 7.9 % (13.4-35.0); Mean Corpuscular HGB Conc 33 % (32-34); Mean Corpuscular Hemoglobin 29 pg (28-32); Mean Corpuscular Volume 89 fl (84-94); Monocytes # (Auto) 0.6 K/mm3 (0.0-0.8); Monocytes % (Auto) 5.7 % (0.0-7.3); Platelet Count 463 K/mm3 (140-440); Red Blood Count 2.98 M/mm3 (3.65-5.03); Red Cell Distribution Width 16.7 % (13.2-15.2)
[2018-06-09] MEDS: HumuLIN R SUB-Q SCH ×4 (00:07→18:35)
[2018-06-09] MEDS: NACL 0.45% 1000 ML 1,000 ML IV SCH (05:25)
[2018-06-09] MEDS: LOPRESSOR IV SCH ×3 (05:26→18:35)
[2018-06-09 06:47] LABS: Hematocrit 20.7 % (35.5-45.6); Hemoglobin 6.8 gm/dl (11.8-15.2); Mean Corpuscular HGB Conc 33 % (32-34); Mean Corpuscular Hemoglobin 29 pg (28-32); Mean Corpuscular Volume 89 fl (84-94); Platelet Count 402 K/mm3 (140-440); Red Blood Count 2.32 M/mm3 (3.65-5.03); Red Cell Distribution Width 16.7 % (13.2-15.2)
[2018-06-09 06:49] LABS: Calcium 7.9 mg/dL (8.4-10.2)
--- NOTE | 2018-06-09 07:56 | Progress Note ---
Assessment and Plan 1. Acute kidney injury: Initial MARYLOU in the setting of bilateral hydronephrosis secondary to pelvic mass , now s/p bilateral nephrostomy. Recurrent Acute kidney injury likely ATN now. Patient required urgent hemodialysis due to worsening renal function and persistent hyperkalemia. Last dialyzed 06/02/81. Creatinine level is improving. Order placed yesterday to remove the dialysis catheter. Renal prognosis is guarded. On PPN / TPN. Continue IV fluids. 2. Electrolytes: Hypernatremia, IV D5W. Monitor. 3. Bowel obstruction: S/p ostomy. 4. Bilateral hydronephrosis: Secondary to pelvic mass. S/p bilateral nephrostomy. S/p Cysto and drainage of abscess. 5. Respiratory failure: S/p extubated. 6. Hypertension: On Clonidine patch 0.6 mg / 24 hr and IV Metoprolol. Monitor BP. 7. Sepsis: Complicated UTI and pneumonia. 8. Anemia. 9. 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 Subjective Date of service: 06/09/18 Principal diagnosis: sq ca - pelvic mass Interval history: Patient was seen and examined at the bedside. Objective - Vital Signs Vital signs: Vital Signs - 12hr 06/08/18 06/08/18 06/08/18 20:10 21:26 22:00 Temperature 98.0 F Pulse Rate 105 H 88 Pulse Rate [ Apical] Pulse Rate [ From Monitor] Respiratory 18 Rate Blood Pressure 167/99 O2 Sat by Pulse 96 95 Oximetry 06/08/18 06/08/18 06/08/18 22:45 23:36 23:59 Temperature 98.0 F Pulse Rate 95 H 88 Pulse Rate [ 88 Apical] Pulse Rate [ 88 From Monitor] Respiratory 18 Rate Blood Pressure 173/101 167/99 O2 Sat by Pulse 96 97 Oximetry 06/09/18 06/09/18 05:11 05:26 Temperature Pulse Rate 75 75 Pulse Rate [ Apical] Pulse Rate [ From Monitor] Respiratory 16 Rate Blood Pressure 166/82 166/82 O2 Sat by Pulse 100 Oximetry - General Appearance General appearance: well-developed, appears stated age, other (no tin distress) EENT: ATNC, PERRL, hearing intact, vision intact Neck: supple Respiratory: Present: Clear to Ascultation Cardiology: regular, S1S2, no murmurs Gastrointestinal: normoactive bowel sounds, tenderness, distended, other ( bilateral nephrostomy, drain and ostomy noted) Integumentary: no rash Neurologic: other (able to move all 4 extremities) Musculoskeletal: other (no edema, right groin dialysis catheter) - Lab 06/09/18 10:41 06/09/18 10:34 Most recent lab results Calcium 7.9 mg/dL (8.4-10.2) L 06/09/18 05:50 Phosphorus 4.30 mg/dL (2.5-4.5) 06/08/18 05:24 Magnesium 1.80 mg/dL (1.7-2.3) 06/09/18 05:50 Urine Creatinine 66.0 mg/dL (0.1-20.0) H 05/13/18 19:39 Urine Sodium 60 mmol/L 05/13/18 19:39 Urine Total Protein 24 mg/dL (5-11.8) H 05/13/18 19:39
[2018-06-09] MEDS: PEPCID IV SCH (09:25)
[2018-06-09] MEDS: D5W 1,000 ML IV SCH (09:25)
--- NOTE | 2018-06-09 09:26 | Progress Note ---
Assessment and Plan Assessment: 1) Sepsis: Improved. Etiology unclear - most likely necrotic malignancy ? abscess +/- UTI +/- LLL pneumonia -Blood cx 05/15 neg, 05/20 neg, 05/26 neg -CRP=40 -->11 -Procal=79 - 2) Complicated UTI: repeat UA 05/21 28 wbc, trace LE. 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 Enlarged pelvic lymph nodes, bilateral hydronephrosis. -S/p 05/14/18 left and right nephrostomy tube placements and mass biopsy -S/p 05/18/2018 cystoscopy with right great toe pyelogram found to have a bladder mass and prostate mass -S/p 05/26/18 diverting colostomy. 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 Similar to prior. Differential diagnosis includes low-grade incomplete obstruction, ileus, and enterocolitis. -CT 06/06 - Large mass is seen again in the pelvis with central low density. suggesting necrosis. Cannot exclude superimposed infectious process. -Paracenthesis 06/03 + MSSE 4) LLL pneumonia, sputum cx + Yeast 5) MARYLOU 6) Weight loss Plan: -CT guided pelvic fluid drainage scheduled today -continue zosyn renally dosed to covered both anaerobic GNR and Staph epi -upon discharge will do zosyn IV 2.25 g q12 while on HD total 3 weeks until . This are preliminary orders, may need to be adjusted depending on new CT guided drainage and renal recovery. As per Dr Keita patient will start soft diet today, -trend CRP/procal [facility] M: [phone] O:[phone] Subjective Date of service: 06/09/18 Principal diagnosis: sq ca - pelvic mass Interval history: Patient laying in bed. Patient stated that he was doing ok Microbiology: Blood cultures: 05/15 neg 05/20 neg 05/26 ngtd Urine cultures: 05/21 neg 05/27 neg Sputum: 05/27 yeast OR cultures: 05/26 Bacteroides fragilis Peritoneal Fluid 06/03 - MSSE Current Antimicrobials: Zosynm D3 Previous Antimicrobials: Cefepime zyvox Levaquin Objective - Exam Narrative Exam: General appearance: Alert in NAD, Eyes: anicteric sclerae, moist conjunctivae; no lid-lag; PERRLA HENT: Atraumatic; oropharynx +EET +NGT. Normal external ears. +temporal wasting Neck: Trachea midline; supple, no thyromegaly or lymphadenopathy Lungs: amy rhonchi CV: RRR, no murmurs Abdomen: Soft, +diverting colostomy +multiple drains and amy PC nephros Extremities: No peripheral edema or extremity lymphadenopathy Skin: Normal temperature, turgor and texture; no rash, ulcers or subcutaneous nodules Psych: alert and oriented to self and place. Neuro: Alert and oriented to self and place Lines: right fem line, right IJ - Constitutional Vitals: Vital Signs Temp Pulse Resp BP Pulse Ox 97.9 F 67 18 166/92 99 06/09/18 08:18 06/09/18 08:18 06/09/18 08:18 06/09/18 08:18 06/09/18 08:18 Temperature -Last 24 Hours Temperature 97.9 F Temperature 98.0 F Temperature 98.0 F - Labs CBC & Chem 7: 06/09/18 10:41 06/09/18 10:34 Labs: Abnormal lab results 06/03/18 06/08/18 06/08/18 Range/Units Unknown 21:36 21:43 RBC 2.98 L (3.65-5.03) M/mm3 Hgb 8.8 L (11.8-15.2) gm/dl Hct 26.6 L (35.5-45.6) % RDW 16.7 H (13.2-15.2) % Plt Count 463 H (140-440) K/mm3 Lymph % (Auto) 7.9 L (13.4-35.0) % Lymph # 0.8 L (1.2-5.4) K/mm3 Seg Neutrophils % 84.8 H (40.0-70.0) % Seg Neutrophils # 8.6 H (1.8-7.7) K/mm3 Sodium (137-145) mmol/L Chloride (98-107) mmol/L BUN (9-20) mg/dL Creatinine (0.8-1.5) mg/dL Glucose (75-100) mg/dL POC Glucose (70-105) Calcium (8.4-10.2) mg/dL Lactate Dehydrogenase 297 H (91-180) units/L Fluid Glucose 10 L (40-70) mg/dL Fluid Total Protein 3.7 L (15.0-45.0) 06/09/18 06/09/18 06/09/18 Range/Units 00:05 05:34 05:50 RBC (3.65-5.03) M/mm3 Hgb (11.8-15.2) gm/dl Hct (35.5-45.6) % RDW (13.2-15.2) % Plt Count (140-440) K/mm3 Lymph % (Auto) (13.4-35.0) % Lymph # (1.2-5.4) K/mm3 Seg Neutrophils % (40.0-70.0) % Seg Neutrophils # (1.8-7.7) K/mm3 Sodium 153 H (137-145) mmol/L Chloride 117.3 H (98-107) mmol/L BUN 84 H (9-20) mg/dL Creatinine 3.2 H (0.8-1.5) mg/dL Glucose 117 H (75-100) mg/dL POC Glucose 140 H 146 H (70-105) Calcium 7.9 L (8.4-10.2) mg/dL Lactate Dehydrogenase (91-180) units/L Fluid Glucose (40-70) mg/dL Fluid Total Protein (15.0-45.0) 06/09/18 Range/Units 05:50 RBC 2.32 L (3.65-5.03) M/mm3 Hgb 6.8 L (11.8-15.2) gm/dl Hct 20.7 L (35.5-45.6) % RDW 16.7 H (13.2-15.2) % Plt Count (140-440) K/mm3 Lymph % (Auto) (13.4-35.0) % Lymph # (1.2-5.4) K/mm3 Seg Neutrophils % (40.0-70.0) % Seg Neutrophils # (1.8-7.7) K/mm3 Sodium (137-145) mmol/L Chloride (98-107) mmol/L BUN (9-20) mg/dL Creatinine (0.8-1.5) mg/dL Glucose (75-100) mg/dL POC Glucose (70-105) Calcium (8.4-10.2) mg/dL Lactate Dehydrogenase (91-180) units/L Fluid Glucose (40-70) mg/dL Fluid Total Protein (15.0-45.0)
[2018-06-09] MEDS ORDERED: TRIPLE ANTIBIOTIC TP STA (09:31)
[2018-06-09] MEDS: ZOSYN/NS 2.25 GM/50ML 2.25 GM/50 ML BAG IV SCH ×2 (10:05→22:09)
[2018-06-09] MEDS: FERROUS SULFATE PO SCH ×2 (10:06→22:10)
[2018-06-09] MEDS: FOLVITE PO SCH (10:06)
[2018-06-09] MEDS: APRESOLINE PO SCH ×3 (10:06→22:10)
[2018-06-09] MEDS: HEPARIN SUB-Q SCH ×2 (10:08→22:07)
[2018-06-09 10:57] LABS: Hematocrit 21.6 % (35.5-45.6); Hemoglobin 7.2 gm/dl (11.8-15.2); Mean Corpuscular HGB Conc 33 % (32-34); Mean Corpuscular Hemoglobin 30 pg (28-32); Mean Corpuscular Volume 89 fl (84-94); Platelet Count 396 K/mm3 (140-440); Red Blood Count 2.43 M/mm3 (3.65-5.03); Red Cell Distribution Width 16.8 % (13.2-15.2)
[2018-06-09 11:11] LABS: Calcium 7.7 mg/dL (8.4-10.2)
--- NOTE | 2018-06-09 12:20 | Progress Note ---
Assessment and Plan Pt status quo. Abd soft infected, malignant ascites poor prognosis but stable attempt cl liq diet Selected Entries 06/09/18 06/09/18 08:18 10:00 Temperature 97.9 F Pulse Rate 65 Blood Pressure 166/92 Laboratory Tests 06/09/18 10:41 WBC 9.4 Hgb 7.2 L Hct 21.6 L Objective Vital Signs - 12hr 06/09/18 06/09/18 06/09/18 05:11 05:26 08:18 Temperature 97.9 F Pulse Rate 75 75 67 Respiratory 16 18 Rate Blood Pressure 166/82 166/82 166/92 O2 Sat by Pulse 100 99 Oximetry 06/09/18 10:00 Temperature Pulse Rate 65 Respiratory 16 Rate Blood Pressure O2 Sat by Pulse 99 Oximetry - Labs 06/09/18 10:41 06/09/18 10:34 Diabetes panel 06/09/18 06/09/18 Range/Units 05:50 10:34 Sodium 153 H 149 H (137-145) mmol/L Potassium 3.7 4.0 (3.6-5.0) mmol/L Chloride 117.3 H 114.6 H (98-107) mmol/L Carbon Dioxide 23 22 (22-30) mmol/L BUN 84 H 84 H (9-20) mg/dL Creatinine 3.2 H 3.1 H (0.8-1.5) mg/dL Glucose 117 H 137 H (75-100) mg/dL Calcium 7.9 L 7.7 L (8.4-10.2) mg/dL Calcium panel 06/09/18 06/09/18 Range/Units 05:50 10:34 Calcium 7.9 L 7.7 L (8.4-10.2) mg/dL Phosphorus 4.50 (2.5-4.5) mg/dL Pituitary panel 06/09/18 06/09/18 Range/Units 05:50 10:34 Sodium 153 H 149 H (137-145) mmol/L Potassium 3.7 4.0 (3.6-5.0) mmol/L Chloride 117.3 H 114.6 H (98-107) mmol/L Carbon Dioxide 23 22 (22-30) mmol/L BUN 84 H 84 H (9-20) mg/dL Creatinine 3.2 H 3.1 H (0.8-1.5) mg/dL Glucose 117 H 137 H (75-100) mg/dL Calcium 7.9 L 7.7 L (8.4-10.2) mg/dL Adrenal panel 06/09/18 06/09/18 Range/Units 05:50 10:34 Sodium 153 H 149 H (137-145) mmol/L Potassium 3.7 4.0 (3.6-5.0) mmol/L Chloride 117.3 H 114.6 H (98-107) mmol/L Carbon Dioxide 23 22 (22-30) mmol/L BUN 84 H 84 H (9-20) mg/dL Creatinine 3.2 H 3.1 H (0.8-1.5) mg/dL Glucose 117 H 137 H (75-100) mg/dL Calcium 7.9 L 7.7 L (8.4-10.2) mg/dL
--- NOTE | 2018-06-09 12:22 | Progress Note ---
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 Continue pain control PRN Bilateral pneumonia (possibly aspiration) Monitor respiratory status Continue Nebs PRN Continue antibiotic Sepsis Continue cefepime, metrodazole Acute kidney injury (obstructive uropathy vs contrast nephropathy) HD per nephrology Continue to monitor BMP and kidney fuction Had bilateral nephrostomy tubes placed 05/14/[address] Freeman. Acute deep venous thrombosis Anticoagulation on hold because of anemia, bilateral nephrostomy tubes and abdominal issues Moderate to severe protein calorie malnutrition Continue tube feeding Hypokalemia Potassium and mag replacement as needed Anemia likely due to Chronic illness Plan is for LTAC History Interval history: feels better, less abdominal pain Hospitalist Physical - Physical exam Narrative exam: GEN:Not in acute distress, lying in bed, very ill looking, HEENT: Normocephalic, atraumatic, Neck: supple, No JVD Lungs: Clear to auscultaion bilaterally, no crackles Heart:S1 and S2 regular no murmurs, rubs or gallop Abd:soft, mild tender, ostomy, bilat nephrostomy tubes, bowel sounds present Ext: No edema, clubbing or cyanosis Neuro: Awake, alert,oriented - Constitutional Vitals: Temp Pulse Resp BP Pulse Ox 97.9 F 65 16 166/92 99 06/09/18 08:18 06/09/18 10:00 06/09/18 10:00 06/09/18 08:18 06/09/18 10:00 General appearance: Present: no acute distress Results - Labs CBC & Chem 7: 06/11/18 05:41 06/11/18 05:41 Labs: Laboratory Last Values WBC 9.4 K/mm3 (4.5-11.0) 06/09/18 10:41 RBC 2.43 M/mm3 (3.65-5.03) L 06/09/18 10:41 Hgb 7.2 gm/dl (11.8-15.2) L 06/09/18 10:41 Hct 21.6 % (35.5-45.6) L 06/09/18 10:41 MCV 89 fl (84-94) 06/09/18 10:41 MCH 30 pg (28-32) 06/09/18 10:41 MCHC 33 % (32-34) 06/09/18 10:41 RDW 16.8 % (13.2-15.2) H 06/09/18 10:41 Plt Count 396 K/mm3 (140-440) 06/09/18 10:41 Lymph % (Auto) 7.9 % (13.4-35.0) L 06/08/18 21:43 Gar[place] % (Auto) 5.7 % (0.0-7.3) 06/08/18 21:43 Eos % (Auto) 0.3 % (0.0-4.3) 06/08/18 21:43 Baso % (Auto) 1.3 % (0.0-1.8) 06/08/18 21:43 Lymph # 0.8 K/mm3 (1.2-5.4) L 06/08/18 21:43 Garland # 0.6 K/mm3 (0.0-0.8) 06/08/18 21:43 Eos # 0.0 K/mm3 (0.0-0.4) 06/08/18 21:43 Baso # 0.1 K/mm3 (0.0-0.1) 06/08/18 21:43 Add Manual Diff Complete 05/31/18 04:50 Total Counted 100 05/31/18 04:50 Seg Neutrophils % 84.8 % (40.0-70.0) H 06/08/18 21:43 Seg Neuts % (Manual) 91.0 % (40.0-70.0) H 05/31/18 04:50 Band Neutrophils % 2.0 % 05/31/18 04:50 Lymphocytes % (Manual) 2.0 % (13.4-35.0) L 05/31/18 04:50 Reactive Lymphs % (Man) 0 % 05/31/18 04:50 Monocytes % (Manual) 2.0 % (0.0-7.3) 05/31/18 04:50 Eosinophils % (Manual) 1.0 % (0.0-4.3) 05/31/18 04:50 Basophils % (Manual) 0 % (0.0-1.8) 05/31/18 04:50 Metamyelocytes % 1.0 % 05/31/18 04:50 Myelocytes % 1.0 % 05/31/18 04:50 Promyelocytes % 0 % 05/31/18 04:50 Blast Cells % 0 % 05/31/18 04:50 Nucleated RBC % Not Reportable 05/31/18 04:50 Seg Neutrophils # 8.6 K/mm3 (1.8-7.7) H 06/08/18 21:43 Seg Neutrophils # Man 17.0 K/mm3 (1.8-7.7) H 05/31/18 04:50 Band Neutrophils # 0.4 K/mm3 05/31/18 04:50 Lymphocytes # (Manual) 0.4 K/mm3 (1.2-5.4) L 05/31/18 04:50 Abs React Lymphs (Man) 0.0 K/mm3 05/31/18 04:50 Monocytes # (Manual) 0.4 K/mm3 (0.0-0.8) 05/31/18 04:50 Eosinophils # (Manual) 0.2 K/mm3 (0.0-0.4) 05/31/18 04:50 Basophils # (Manual) 0.0 K/mm3 (0.0-0.1) 05/31/18 04:50 Metamyelocytes # 0.2 K/mm3 05/31/18 04:50 Myelocytes # 0.2 K/mm3 05/31/18 04:50 Promyelocytes # 0.0 K/mm3 05/31/18 04:50 Blast Cells # 0.0 K/mm3 05/31/18 04:50 WBC Morphology Not Reportable 05/31/18 04:50 Hypersegmented Neuts Not Reportable 05/31/18 04:50 Hyposegmented Neuts Not Reportable 05/31/18 04:50 Hypogranular Neuts Not Reportable 05/31/18 04:50 Smudge Cells Not Reportable 05/31/18 04:50 Toxic Granulation Not Reportable 05/31/18 04:50 Toxic Vacuolation Not Reportable 05/31/18 04:50 Dohle Bodies Not Reportable 05/31/18 04:50 Pelger-Huet Anomaly Not Reportable 05/31/18 04:50 Mahesh Rods Not Reportable 05/31/18 04:50 Platelet Estimate Appears normal 05/31/18 04:50 Clumped Platelets Not Reportable 05/31/18 04:50 Plt Clumps, EDTA Not Reportable 05/31/18 04:50 Large Platelets Not Reportable 05/31/18 04:50 Giant Platelets Not Reportable 05/31/18 04:50 Platelet Satelliting Not Reportable 05/31/18 04:50 Plt Morphology Comment Not Reportable 05/31/18 04:50 RBC Morphology Not Reportable 05/31/18 04:50 Dimorphic RBCs Not Reportable 05/31/18 04:50 Polychromasia Not Reportable 05/31/18 04:50 Hypochromasia Few 05/31/18 04:50 Poikilocytosis Not Reportable 05/31/18 04:50 Anisocytosis 1+ 05/31/18 04:50 Microcytosis Few 05/31/18 04:50 Macrocytosis Not Reportable 05/31/18 04:50 Spherocytes Not Reportable 05/31/18 04:50 Pappenheimer Bodies Not Reportable 05/31/18 04:50 Sickle Cells Not Reportable 05/31/18 04:50 Target Cells Rare 05/31/18 04:50 Tear Drop Cells Not Reportable 05/31/18 04:50 Ovalocytes 1+ 05/31/18 04:50 Helmet Cells Not Reportable 05/31/18 04:50 Hernandez-Nezperce Bodies Not Reportable 05/31/18 04:50 [place] Rings Not Reportable 05/31/18 04:50 Nory Cells Not Reportable 05/31/18 04:50 Bite Cells Not Reportable 05/31/18 04:50 Crenated Cell Not Reportable 05/31/18 04:50 Elliptocytes Not Reportable 05/31/18 04:50 Acanthocytes (Spur) Not Reportable 05/31/18 04:50 Rouleaux Not Reportable 05/31/18 04:50 Hemoglobin C Crystals Not Reportable 05/31/18 04:50 Schistocytes Not Reportable 05/31/18 04:50 Malaria parasites Not Reportable 05/31/18 04:50 Mk Bodies Not Reportable 05/31/18 04:50 Hem Pathologist Commnt No 05/31/18 04:50 PT 17.1 Sec. (12.2-14.9) H 06/03/18 09:18 INR 1.34 (0.87-1.13) H 06/03/18 09:18 APTT 40.0 Sec. (24.2-36.6) H 05/23/18 09:03 POC ABG pH 7.362 (7.35-7.45) 05/31/18 09:58 POC ABG pCO2 36.4 (35-45) 05/31/18 09:58 POC ABG pO2 101 (80-105) 05/31/18 09:58 POC ABG HCO3 20.7 05/31/18 09:58 POC ABG Total CO2 22 05/31/18 09:58 POC ABG O2 Sat 98 05/31/18 09:58 POC ABG Base Excess -5 05/31/18 09:58 FiO2 40 % 05/31/18 09:58 Sodium 149 mmol/L (137-145) H 06/09/18 10:34 Potassium 4.0 mmol/L (3.6-5.0) 06/09/18 10:34 Chloride 114.6 mmol/L (98-107) H 06/09/18 10:34 Carbon Dioxide 22 mmol/L (22-30) 06/09/18 10:34 Anion Gap 16 mmol/L 06/09/18 10:34 BUN 84 mg/dL (9-20) H 06/09/18 10:34 Creatinine 3.1 mg/dL (0.8-1.5) H 06/09/18 10:34 Estimated GFR 26 ml/min 06/09/18 10:34 BUN/Creatinine Ratio 27 % 06/09/18 10:34 Glucose 137 mg/dL (75-100) H 06/09/18 10:34 POC Glucose 146 (70-105) H 06/09/18 05:34 Hemoglobin A1c 5.7 % (4-6) 05/14/18 05:05 Lactic Acid 3.80 mmol/L (0.7-2.0) H* 05/26/18 11:00 Calcium 7.7 mg/dL (8.4-10.2) L 06/09/18 10:34 Phosphorus 4.50 mg/dL (2.5-4.5) 06/09/18 05:50 Magnesium 1.80 mg/dL (1.7-2.3) 06/09/18 05:50 Iron 24 ug/dL (49-181) L 05/16/18 07:02 TIBC 160 mcg/dL (250-450) L 05/16/18 07:02 Ferritin 325.8 ng/mL (13.0-400.0) 05/16/18 07:02 Total Bilirubin 0.50 mg/dL (0.1-1.2) 06/02/18 Unknown AST 46 units/L (5-40) H 06/02/18 Unknown ALT 66 units/L (7-56) H 06/02/18 Unknown Alkaline Phosphatase 119 units/L (35-129) 06/02/18 Unknown Lactate Dehydrogenase 297 units/L (91-180) H 06/08/18 21:36 Total Creatine Kinase 156 units/L (55-170) 05/25/18 22:46 CK-MB (CK-2) 2.3 ng/mL (0.0-4.0) 05/25/18 22:46 CK-MB (CK-2) Rel Index 1.4 (0-4) 05/25/18 22:46 C-Reactive Protein 4.70 mg/dL (0.00-1.30) H 06/06/18 07:14 Total Protein 5.7 g/dL (6.3-8.2) L 06/02/18 Unknown Albumin 1.5 g/dL (3.9-5) L 06/02/18 Unknown Albumin/Globulin Ratio 0.4 % 06/02/18 Unknown Triglycerides 112 mg/dL (2-149) 06/03/18 03:31 Prostate Specific Ag 0.96 ng/mL (0.00-4.00) 05/14/18 13:29 Vitamin B12 359.2 pg/mL (211-911) 05/16/18 07:02 Folate 5.39 ng/mL (7.3-26.0) L 05/16/18 07:02 TSH 3.180 mlU/mL (0.270-4.200) 05/14/18 05:05 PTH Intact 65.37 pg/mL (15-65) H 05/14/18 05:05 Urine Color Maria Del Rosario (Yellow) 05/27/18 Unknown Urine Turbidity Cloudy (Clear) 05/27/18 Unknown Urine pH 5.0 (5.0-7.0) 05/27/18 Unknown Ur Specific Gill 1.026 (1.003-1.030) 05/27/18 Unknown Urine Protein 100 mg/dl mg/dL (Negative) 05/27/18 Unknown Urine Glucose (UA) 50 mg/dL (Negative) 05/27/18 Unknown Urine Ketones Neg mg/dL (Negative) 05/27/18 Unknown Urine Blood Lg (Negative) 05/27/18 Unknown Urine Nitrite Neg (Negative) 05/27/18 Unknown Urine Bilirubin Neg (Negative) 05/27/18 Unknown Urine Urobilinogen < 2.0 mg/dL (<2.0) 05/27/18 Unknown Ur Leukocyte Esterase Mod (Negative) 05/27/18 Unknown Urine WBC (Auto) 120.0 /HPF (0.0-6.0) H 05/27/18 Unknown Urine RBC (Auto) 35.0 /HPF (0.0-6.0) 05/27/18 Unknown U Epithel Cells (Auto) 3.0 /HPF (0-13.0) 05/27/18 Unknown Urine Bacteria (Auto) 1+ /HPF (Negative) 05/27/18 Unknown Urine WBC Clumps Few /HPF 05/13/18 19:39 Urine Mucus Few /HPF 05/27/18 Unknown Urine Yeast (Budding) 2+ /HPF 05/21/18 15:30 Urine Creatinine 66.0 mg/dL (0.1-20.0) H 05/13/18 19:39 Urine Sodium 60 mmol/L 05/13/18 19:39 Urine Potassium 8.69 mmol/L 05/13/18 19:39 Urine Chloride 27.8 mmolL (110-250) L 05/13/18 19:39 Urine Total Protein 24 mg/dL (5-11.8) H 05/13/18 19:39 Fluid Type Ascitic 06/03/18 Unknown Fluid Color Yellow 06/03/18 Unknown Fluid Appearance Cloudy 06/03/18 Unknown Fluid WBC 97194 /mm3 06/03/18 Unknown Fluid RBC 9 /mm3 06/03/18 Unknown Fluid Seg Neutrophils 98.0 % 06/03/18 Unknown Fluid Lymphocytes 2.0 % 06/03/18 Unknown Fluid Reactive Lymphs 0 % 06/03/18 Unknown Fluid Monocytes 0 % 06/03/18 Unknown Fluid Eosinophils 0 % 06/03/18 Unknown Fluid Basophils 0 % 06/03/18 Unknown Fluid Glucose 10 mg/dL (40-70) L 06/03/18 Unknown Fluid Total Protein 3.7 (15.0-45.0) L 06/03/18 Unknown Fluid Albumin 0.8 g/dL 06/03/18 Unknown Fluid LDH > 61253 06/03/18 Unknown Fluid Amylase 126 06/03/18 Unknown Vancomycin Trough 25.1 ug/mL (5.0-20.0) H 05/25/18 22:46 Random Vancomycin 34.3 ug/mL (0-40.0) 05/26/18 11:01 Urine Opiates Screen Presumptive negative 05/13/18 19:39 Urine Methadone Screen Presumptive negative 05/13/18 19:39 Ur Barbiturates Screen Presumptive negative 05/13/18 19:39 Ur Phencyclidine Scrn Presumptive negative 05/13/18 19:39 Ur Amphetamines Screen Presumptive negative 05/13/18 19:39 U Benzodiazepines Scrn Presumptive negative 05/13/18 19:39 Urine Cocaine Screen Presumptive negative 05/13/18 19:39 U Marijuana (THC) Screen Presumptive negative 05/13/18 19:39 Drugs of Abuse Note Disclamer 05/13/18 19:39 ZEUS Screen Negative (Negative) 05/14/18 05:05 Proteinase 3 (PR3) Ab <1.0 AI (<1.0) 05/14/18 05:05 Myeloperoxidase Ab <1.0 AI (<1.0) 05/14/18 05:05 Complement C3 147 mg/dL (82-185) 05/14/18 05:05 Complement C4 45 mg/dL (15-53) 05/14/18 05:05 Hepatitis A IgM Ab Nonreactive (NonReactive) 05/27/18 13:41 Hep Bs Antigen Non-reactive (Negative) 05/27/18 13:41 Hep B Core IgM Ab Non-reactive (NonReactive) 05/27/18 13:41 Hepatitis C Antibody Non-reactive (NonReactive) 05/27/18 13:41 Miscellaneous Test Flexitest 1 H 05/27/18 13:02 Blood Type O POSITIVE 06/02/18 13:05 Antibody Screen Negative 06/02/18 13:05 Crossmatch See Detail 05/22/18 11:23
--- NOTE | 2018-06-09 12:23 | Event Note ---
had prolonged family meeting
--- NOTE | 2018-06-09 12:39 | Progress Note ---
Assessment and Plan - Patient Problems (1) Acute renal failure Current Visit: Yes Status: Acute Qualifiers: Acute renal failure type: unspecified Qualified Code(s): N17.9 - Acute kidney failure, unspecified Plan to address problem: Follow renal service. (2) Edema Current Visit: Yes Status: Acute Qualifiers: Edema type: unspecified Qualified Code(s): R60.9 - Edema, unspecified Plan to address problem: Due in part to overall tumor burden., and may be poor protien. (3) Pelvic mass in male Current Visit: Yes Status: Acute Plan to address problem: consistent with SQ cell histology, REC remains the same. see notes. (4) Sepsis Current Visit: Yes Status: Acute Plan to address problem: treat underlying issues. Follow ID rec. Subjective Date of service: 06/09/18 Principal diagnosis: sq ca - pelvic mass Interval history: I am covering DR Oates/PM group.Patient seen, resting in bed, records reviewed, cbc fair. Prostate bx with Squamous histology. REC remains the same until any further conclusive results.Treat other co morbid issues.WBC19.3, H/h8.3/25, [id number]. Covering DR Plunkett. Patient seen,resting in bed, records reviewed. Hgb dropped by o.2 very insignificant. Sill covering DR Plunkett, patient seen, resting in bed, nothing new.records reviewed. Covering DR Plunkett. Patient seen/examined, records reviewed, case d/w patient at the bed side.Will do another lab, speak with Pathology tomorrow. Family meeting set for tomorrow. Patient seen/examined, records reviewed, case d/w patient ,and the sister at the bed side. There was also a family meeting held this am with the Family, was extensive covering all the events sofar, and plans moving forward, including time line for possible management of his cancer.Will continue to follow, and be avalable untill DR Plunkett comes back on wednesday.The family was satisfied, and expressed so.I have also seen, and spoken to DR Cantu the surgeon, who indicated , patient will be started on clear liquid, and advance as tolerable.Will recheck cbc for tomorrow, and if HGB 7 or less, or if sxs of anemia, will proceed with PRBC replacement. Objective - Constitutional Vitals: Vital Signs - 12hr 06/09/18 06/09/18 06/09/18 05:11 05:26 08:18 Temperature 97.9 F Pulse Rate 75 75 67 Respiratory 16 18 Rate Blood Pressure 166/82 166/82 166/92 O2 Sat by Pulse 100 99 Oximetry 06/09/18 10:00 Temperature Pulse Rate 65 Respiratory 16 Rate Blood Pressure O2 Sat by Pulse 99 Oximetry General appearance: Present: mild distress - EENT Eyes: PERRL, EOM intact ENT: hearing intact, clear oral mucosa Ears: bilateral: normal - Neck Neck: supple, normal ROM - Respiratory Respiratory effort: normal Respiratory: bilateral: CTA - Breasts Breasts: deferred - Cardiovascular Rhythm: regular Heart Sounds: Present: S1 & S2. Absent: gallop, rub Extremities: pulses intact, No edema, normal color, Full ROM - Gastrointestinal General gastrointestinal: Present: soft, non-tender, non-distended, normal bowel sounds Rectal Exam: deferred - Genitourinary Male genitourinary: deferred - Integumentary Integumentary: clear, warm, dry - Musculoskeletal Musculoskeletal: 1, strength equal bilaterally - Neurologic Neurologic: moves all extremities - Psychiatric Psychiatric: memory intact, appropriate mood/affect, intact judgment & insight - Labs CBC & Chem 7: 06/09/18 10:41 06/09/18 10:34 Labs: Abnormal lab results 06/08/18 06/08/18 06/09/18 Range/Units 21:36 21:43 00:05 RBC 2.98 L (3.65-5.03) M/mm3 Hgb 8.8 L (11.8-15.2) gm/dl Hct 26.6 L (35.5-45.6) % RDW 16.7 H (13.2-15.2) % Plt Count 463 H (140-440) K/mm3 Lymph % (Auto) 7.9 L (13.4-35.0) % Lymph # 0.8 L (1.2-5.4) K/mm3 Seg Neutrophils % 84.8 H (40.0-70.0) % Seg Neutrophils # 8.6 H (1.8-7.7) K/mm3 Sodium (137-145) mmol/L Chloride (98-107) mmol/L BUN (9-20) mg/dL Creatinine (0.8-1.5) mg/dL Glucose (75-100) mg/dL POC Glucose 140 H (70-105) Calcium (8.4-10.2) mg/dL Lactate Dehydrogenase 297 H (91-180) units/L 06/09/18 06/09/18 06/09/18 Range/Units 05:34 05:50 05:50 RBC 2.32 L (3.65-5.03) M/mm3 Hgb 6.8 L (11.8-15.2) gm/dl Hct 20.7 L (35.5-45.6) % RDW 16.7 H (13.2-15.2) % Plt Count (140-440) K/mm3 Lymph % (Auto) (13.4-35.0) % Lymph # (1.2-5.4) K/mm3 Seg Neutrophils % (40.0-70.0) % Seg Neutrophils # (1.8-7.7) K/mm3 Sodium 153 H (137-145) mmol/L Chloride 117.3 H (98-107) mmol/L BUN 84 H (9-20) mg/dL Creatinine 3.2 H (0.8-1.5) mg/dL Glucose 117 H (75-100) mg/dL POC Glucose 146 H (70-105) Calcium 7.9 L (8.4-10.2) mg/dL Lactate Dehydrogenase (91-180) units/L 06/09/18 06/09/18 Range/Units 10:34 10:41 RBC 2.43 L (3.65-5.03) M/mm3 Hgb 7.2 L (11.8-15.2) gm/dl Hct 21.6 L (35.5-45.6) % RDW 16.8 H (13.2-15.2) % Plt Count (140-440) K/mm3 Lymph % (Auto) (13.4-35.0) % Lymph # (1.2-5.4) K/mm3 Seg Neutrophils % (40.0-70.0) % Seg Neutrophils # (1.8-7.7) K/mm3 Sodium 149 H (137-145) mmol/L Chloride 114.6 H (98-107) mmol/L BUN 84 H (9-20) mg/dL Creatinine 3.1 H (0.8-1.5) mg/dL Glucose 137 H (75-100) mg/dL POC Glucose (70-105) Calcium 7.7 L (8.4-10.2) mg/dL Lactate Dehydrogenase (91-180) units/L
[2018-06-09] MEDS ORDERED: NACL 0.9% 500 ML 500 ML IV NR (13:06)
--- NOTE | 2018-06-09 19:05 | Progress Note ---
Assessment and Plan Patient alert, awake . Resting on 2 litres O2.No acute respiratory distress.O2 saturation 97% on 2 litres O2. Patient afebrile. No leukocytosis.Patients chest xray reported airspace disease left lower lobe.Patient has history of smoking in the past. He works as [employer]. - Patient Problems (1) Sepsis Current Visit: Yes Status: Acute Plan to address problem: Patient is on Zosyn (2) Acute renal failure Current Visit: Yes Status: Acute Qualifiers: Acute renal failure type: unspecified Qualified Code(s): N17.9 - Acute kidney failure, unspecified Plan to address problem: Management as per nephrology. (3) Hypertensive urgency, malignant Current Visit: Yes Status: Acute Plan to address problem: Management as per primary care. (4) Intestinal obstruction Current Visit: Yes Status: Acute Plan to address problem: Management as per primary and surgery. (5) Pelvic mass in male Current Visit: Yes Status: Acute Plan to address problem: Management as per primary and urology. (6) UTI (urinary tract infection) Current Visit: Yes Status: Acute Plan to address problem: Patient is on Zosyn. (7) Pneumonia involving left lung Current Visit: Yes Status: Acute Plan to address problem: Patient is on Zosyn. Subjective Date of service: 06/09/18 Principal diagnosis: sq ca - pelvic mass Interval history: Patient alert, awake . Resting on 2 litres O2.No acute respiratory distress.O2 saturation 97% on 2 litres O2. Patient afebrile. No leukocytosis.Patients chest xray reported airspace disease left lower lobe.Patient has history of smoking in the past. He works as [employer]. Objective Vital Signs - 12hr 06/09/18 06/09/18 06/09/18 08:18 10:00 15:15 Temperature 97.9 F 98.5 F Pulse Rate 67 65 76 Respiratory 18 16 18 Rate Blood Pressure 166/92 155/95 O2 Sat by Pulse 99 99 98 Oximetry 06/09/18 18:35 Temperature Pulse Rate Respiratory Rate Blood Pressure 155/95 O2 Sat by Pulse Oximetry Constitutional: no acute distress, alert, other (chronically ill looking middle aged AAM, normocephalic and atraumatic, ) Eyes: non-icteric ENT: oropharynx moist Neck: supple, no lymphadenopathy, no JVD, other (no thyromegaly) Effort: mildly labored Ascultation: Bilateral: diminished breath sounds, rhonchi (scant in bases) Percussion: Bilateral: not dull Cardiovascular: regular rate and rhythm, other (No R/M) Gastrointestinal: hypoactive bowel sounds, soft, tender (mild), other (Distended ; No palpable HSM, bilateral nephrostomy tubes,) Integumentary: other (femoral vascath) Extremities: no cyanosis, no edema, pulses normal, no ischemia or petechiae Neurologic: normal mental status, non-focal exam, pupils equal and round, other (weak) Psychiatric: mood appropriate, affect normal CBC and BMP: 06/09/18 10:41 06/09/18 10:34 ABG, PT/INR, D-dimer: ABG POC ABG pH 7.362 (7.35-7.45) 05/31/18 09:58 POC ABG pCO2 36.4 (35-45) 05/31/18 09:58 POC ABG pO2 101 (80-105) 05/31/18 09:58 POC ABG HCO3 20.7 05/31/18 09:58 POC ABG Total CO2 22 05/31/18 09:58 POC ABG O2 Sat 98 05/31/18 09:58 PT/INR, D-dimer PT 17.1 Sec. (12.2-14.9) H 06/03/18 09:18 INR 1.34 (0.87-1.13) H 06/03/18 09:18 Abnormal lab findings: Abnormal Labs 05/13/18 05/13/18 05/13/18 04:27 04:27 19:39 WBC RBC 3.13 L Hgb 9.4 L Hct 26.8 L MCHC 35 H RDW Plt Count Lymph % (Auto) [place] % (Auto) 9.6 H Lymph # [place] # Seg Neutrophils % Seg Neuts % (Manual) Lymphocytes % (Manual) Seg Neutrophils # Seg Neutrophils # Man Lymphocytes # (Manual) PT INR APTT POC ABG pH POC ABG pCO2 POC ABG pO2 Sodium 132 L Potassium 5.5 H Chloride 94.1 L Carbon Dioxide 19 L BUN 72 H Creatinine 14.4 H Glucose POC Glucose Lactic Acid Calcium Phosphorus Magnesium Iron TIBC AST ALT Alkaline Phosphatase Lactate Dehydrogenase Total Creatine Kinase C-Reactive Protein Total Protein Albumin 2.8 L Folate PTH Intact Urine WBC (Auto) Urine Creatinine 66.0 H Urine Chloride 27.8 L Urine Total Protein 24 H Fluid Glucose Fluid Total Protein Vancomycin Trough Miscellaneous Test Crossmatch 05/13/18 05/14/18 05/14/18 20:00 05:05 05:05 WBC RBC Hgb Hct MCHC RDW Plt Count Lymph % (Auto) [place] % (Auto) Lymph # [place] # Seg Neutrophils % Seg Neuts % (Manual) Lymphocytes % (Manual) Seg Neutrophils # Seg Neutrophils # Man Lymphocytes # (Manual) PT INR APTT POC ABG pH POC ABG pCO2 POC ABG pO2 Sodium 132 L 131 L Potassium 5.2 H 5.8 H Chloride 93.0 L 95.6 L Carbon Dioxide 19 L 20 L BUN 74 H 81 H Creatinine 15.0 H 16.6 H Glucose 134 H 127 H POC Glucose Lactic Acid Calcium 8.2 L 7.9 L Phosphorus 6.30 H Magnesium Iron TIBC AST ALT Alkaline Phosphatase Lactate Dehydrogenase Total Creatine Kinase 236 H C-Reactive Protein Total Protein Albumin Folate PTH Intact 65.37 H Urine WBC (Auto) Urine Creatinine Urine Chloride Urine Total Protein Fluid Glucose Fluid Total Protein Vancomycin Trough Miscellaneous Test Crossmatch 05/14/18 05/14/18 05/14/18 09:28 10:56 13:29 WBC RBC Hgb Hct MCHC RDW Plt Count Lymph % (Auto) [place] % (Auto) Lymph # [place] # Seg Neutrophils % Seg Neuts % (Manual) Lymphocytes % (Manual) Seg Neutrophils # Seg Neutrophils # Man Lymphocytes # (Manual) PT INR APTT 38.2 H POC ABG pH POC ABG pCO2 POC ABG pO2 Sodium Potassium Chloride Carbon Dioxide BUN Creatinine Glucose POC Glucose 127 H 126 H Lactic Acid Calcium Phosphorus Magnesium Iron TIBC AST ALT Alkaline Phosphatase Lactate Dehydrogenase Total Creatine Kinase C-Reactive Protein Total Protein Albumin Folate PTH Intact Urine WBC (Auto) Urine Creatinine Urine Chloride Urine Total Protein Fluid Glucose Fluid Total Protein Vancomycin Trough Miscellaneous Test Crossmatch 05/15/18 05/15/18 05/16/18 08:06 08:06 07:02 WBC RBC 2.84 L 2.74 L Hgb 8.5 L 8.5 L Hct 24.2 L 23.5 L MCHC 35 H 36 H RDW Plt Count Lymph % (Auto) [place] % (Auto) 10.4 H 11.0 H Lymph # 1.1 L [place] # 0.9 H Seg Neutrophils % 72.6 H Seg Neuts % (Manual) Lymphocytes % (Manual) Seg Neutrophils # Seg Neutrophils # Man Lymphocytes # (Manual) PT INR APTT POC ABG pH POC ABG pCO2 POC ABG pO2 Sodium Potassium Chloride Carbon Dioxide 19 L BUN 66 H Creatinine 12.0 H Glucose 115 H POC Glucose Lactic Acid Calcium 8.1 L Phosphorus Magnesium Iron TIBC AST ALT Alkaline Phosphatase Lactate Dehydrogenase Total Creatine Kinase C-Reactive Protein Total Protein Albumin Folate PTH Intact Urine WBC (Auto) Urine Creatinine Urine Chloride Urine Total Protein Fluid Glucose Fluid Total Protein Vancomycin Trough Miscellaneous Test Crossmatch 05/16/18 05/16/18 05/17/18 07:02 07:02 05:08 WBC RBC 2.78 L Hgb 8.2 L Hct 23.9 L MCHC RDW Plt Count Lymph % (Auto) [place] % (Auto) 13.9 H Lymph # [place] # 0.9 H Seg Neutrophils % Seg Neuts % (Manual) Lymphocytes % (Manual) Seg Neutrophils # Seg Neutrophils # Man Lymphocytes # (Manual) PT INR APTT POC ABG pH POC ABG pCO2 POC ABG pO2 Sodium Potassium Chloride Carbon Dioxide BUN 28 H Creatinine 2.4 H D Glucose POC Glucose Lactic Acid Calcium 8.3 L Phosphorus Magnesium 1.50 L Iron 24 L TIBC 160 L AST ALT Alkaline Phosphatase Lactate Dehydrogenase Total Creatine Kinase C-Reactive Protein Total Protein Albumin Folate 5.39 L PTH Intact Urine WBC (Auto) Urine Creatinine Urine Chloride Urine Total Protein Fluid Glucose Fluid Total Protein Vancomycin Trough Miscellaneous Test Crossmatch 05/17/18 05/18/18 05/18/18 05:08 05:57 05:57 WBC RBC 2.79 L Hgb 8.3 L Hct 24.0 L MCHC 35 H RDW Plt Count Lymph % (Auto) [place] % (Auto) 11.8 H Lymph # [place] # 0.9 H Seg Neutrophils % Seg Neuts % (Manual) Lymphocytes % (Manual) Seg Neutrophils # Seg Neutrophils # Man Lymphocytes # (Manual) PT INR APTT POC ABG pH POC ABG pCO2 POC ABG pO2 Sodium Potassium Chloride Carbon Dioxide BUN Creatinine Glucose POC Glucose Lactic Acid Calcium 7.7 L 8.0 L Phosphorus Magnesium 1.60 L Iron TIBC AST ALT Alkaline Phosphatase Lactate Dehydrogenase Total Creatine Kinase C-Reactive Protein Total Protein Albumin Folate PTH Intact Urine WBC (Auto) Urine Creatinine Urine Chloride Urine Total Protein Fluid Glucose Fluid Total Protein Vancomycin Trough Miscellaneous Test Crossmatch 05/19/18 05/19/18 05/20/18 05:33 05:33 05:38 WBC RBC 2.95 L Hgb 8.8 L Hct 25.8 L MCHC RDW Plt Count Lymph % (Auto) 10.1 L [place] % (Auto) Lymph # 1.1 L [place] # Seg Neutrophils % 85.2 H Seg Neuts % (Manual) Lymphocytes % (Manual) Seg Neutrophils # 9.0 H Seg Neutrophils # Man Lymphocytes # (Manual) PT INR APTT POC ABG pH POC ABG pCO2 POC ABG pO2 Sodium 135 L Potassium Chloride Carbon Dioxide BUN Creatinine Glucose 132 H POC Glucose Lactic Acid Calcium 7.8 L 8.3 L Phosphorus Magnesium 1.40 L Iron TIBC AST ALT Alkaline Phosphatase Lactate Dehydrogenase Total Creatine Kinase C-Reactive Protein Total Protein Albumin Folate PTH Intact Urine WBC (Auto) Urine Creatinine Urine Chloride Urine Total Protein Fluid Glucose Fluid Total Protein Vancomycin Trough Miscellaneous Test Crossmatch 05/21/18 05/21/18 05/22/18 04:46 15:30 06:49 WBC 20.0 H RBC 2.70 L Hgb 7.8 L Hct 23.3 L MCHC RDW Plt Count Lymph % (Auto) [place] % (Auto) Lymph # [place] # Seg Neutrophils % Seg Neuts % (Manual) 85.0 H Lymphocytes % (Manual) 4.0 L Seg Neutrophils # Seg Neutrophils # Man 17.0 H Lymphocytes # (Manual) 0.8 L PT INR APTT POC ABG pH POC ABG pCO2 POC ABG pO2 Sodium 135 L Potassium 3.5 L Chloride Carbon Dioxide 21 L BUN 22 H Creatinine Glucose POC Glucose Lactic Acid Calcium 8.1 L Phosphorus Magnesium Iron TIBC AST ALT Alkaline Phosphatase Lactate Dehydrogenase Total Creatine Kinase C-Reactive Protein Total Protein Albumin Folate PTH Intact Urine WBC (Auto) 28.0 H Urine Creatinine Urine Chloride Urine Total Protein Fluid Glucose Fluid Total Protein Vancomycin Trough Miscellaneous Test Crossmatch 05/22/18 05/22/18 05/23/18 06:49 11:23 09:03 WBC RBC Hgb Hct MCHC RDW Plt Count Lymph % (Auto) [place] % (Auto) Lymph # [place] # Seg Neutrophils % Seg Neuts % (Manual) Lymphocytes % (Manual) Seg Neutrophils # Seg Neutrophils # Man Lymphocytes # (Manual) PT INR APTT POC ABG pH POC ABG pCO2 POC ABG pO2 Sodium 134 L Potassium 3.5 L Chloride Carbon Dioxide 21 L BUN 35 H 36 H Creatinine 1.7 H Glucose 107 H POC Glucose Lactic Acid Calcium 7.9 L Phosphorus Magnesium 2.50 H Iron TIBC AST ALT Alkaline Phosphatase Lactate Dehydrogenase Total Creatine Kinase C-Reactive Protein Total Protein Albumin Folate PTH Intact Urine WBC (Auto) Urine Creatinine Urine Chloride Urine Total Protein Fluid Glucose Fluid Total Protein Vancomycin Trough Miscellaneous Test Crossmatch See Detail 05/23/18 05/23/18 05/23/18 09:03 09:03 17:34 WBC 26.3 H RBC 3.57 L Hgb 10.4 L Hct 31.1 L D MCHC RDW Plt Count Lymph % (Auto) [place] % (Auto) Lymph # [place] # Seg Neutrophils % Seg Neuts % (Manual) Lymphocytes % (Manual) Seg Neutrophils # Seg Neutrophils # Man Lymphocytes # (Manual) PT 18.3 H INR 1.43 H APTT 40.0 H POC ABG pH POC ABG pCO2 POC ABG pO2 Sodium Potassium Chloride Carbon Dioxide BUN Creatinine Glucose POC Glucose 108 H Lactic Acid Calcium Phosphorus Magnesium Iron TIBC AST ALT Alkaline Phosphatase Lactate Dehydrogenase Total Creatine Kinase C-Reactive Protein Total Protein Albumin Folate PTH Intact Urine WBC (Auto) Urine Creatinine Urine Chloride Urine Total Protein Fluid Glucose Fluid Total Protein Vancomycin Trough Miscellaneous Test Crossmatch 05/23/18 05/24/18 05/24/18 21:14 04:43 08:04 WBC RBC Hgb Hct MCHC RDW Plt Count Lymph % (Auto) [place] % (Auto) Lymph # [place] # Seg Neutrophils % Seg Neuts % (Manual) Lymphocytes % (Manual) Seg Neutrophils # Seg Neutrophils # Man Lymphocytes # (Manual) PT INR APTT POC ABG pH POC ABG pCO2 POC ABG pO2 Sodium 146 H Potassium Chloride 108.6 H Carbon Dioxide BUN 33 H Creatinine Glucose 109 H POC Glucose 110 H 106 H Lactic Acid Calcium 8.3 L Phosphorus Magnesium 2.50 H Iron TIBC AST ALT Alkaline Phosphatase Lactate Dehydrogenase Total Creatine Kinase C-Reactive Protein Total Protein Albumin Folate PTH Intact Urine WBC (Auto) Urine Creatinine Urine Chloride Urine Total Protein Fluid Glucose Fluid Total Protein Vancomycin Trough Miscellaneous Test Crossmatch 05/25/18 05/25/18 05/25/18 05:42 05:49 19:50 WBC RBC Hgb Hct MCHC RDW Plt Count Lymph % (Auto) [place] % (Auto) Lymph # [place] # Seg Neutrophils % Seg Neuts % (Manual) Lymphocytes % (Manual) Seg Neutrophils # Seg Neutrophils # Man Lymphocytes # (Manual) PT INR APTT POC ABG pH POC ABG pCO2 POC ABG pO2 Sodium 150 H Potassium Chloride 112.5 H Carbon Dioxide BUN 34 H Creatinine Glucose 102 H POC Glucose 107 H Lactic Acid Calcium Phosphorus Magnesium Iron TIBC AST ALT Alkaline Phosphatase Lactate Dehydrogenase Total Creatine Kinase C-Reactive Protein 34.50 H Total Protein Albumin Folate PTH Intact Urine WBC (Auto) Urine Creatinine Urine Chloride Urine Total Protein Fluid Glucose Fluid Total Protein Vancomycin Trough Miscellaneous Test Crossmatch 05/25/18 05/25/18 05/25/18 19:50 21:05 22:46 WBC RBC Hgb Hct MCHC RDW Plt Count Lymph % (Auto) [place] % (Auto) Lymph # [place] # Seg Neutrophils % Seg Neuts % (Manual) Lymphocytes % (Manual) Seg Neutrophils # Seg Neutrophils # Man Lymphocytes # (Manual) PT INR APTT POC ABG pH 7.483 H POC ABG pCO2 24.0 L POC ABG pO2 72 L Sodium Potassium Chloride Carbon Dioxide BUN Creatinine Glucose POC Glucose Lactic Acid 5.90 H* Calcium Phosphorus Magnesium Iron TIBC AST ALT Alkaline Phosphatase Lactate Dehydrogenase Total Creatine Kinase C-Reactive Protein Total Protein Albumin Folate PTH Intact Urine WBC (Auto) Urine Creatinine Urine Chloride Urine Total Protein Fluid Glucose Fluid Total Protein Vancomycin Trough 25.1 H Miscellaneous Test Crossmatch 05/25/18 05/26/18 05/26/18 22:46 00:21 00:51 WBC RBC Hgb Hct MCHC RDW Plt Count Lymph % (Auto) [place] % (Auto) Lymph # [place] # Seg Neutrophils % Seg Neuts % (Manual) Lymphocytes % (Manual) Seg Neutrophils # Seg Neutrophils # Man Lymphocytes # (Manual) PT INR APTT POC ABG pH POC ABG pCO2 POC ABG pO2 Sodium Potassium Chloride Carbon Dioxide BUN Creatinine Glucose POC Glucose 133 H Lactic Acid 8.10 H* 6.20 H* Calcium Phosphorus Magnesium Iron TIBC AST ALT Alkaline Phosphatase Lactate Dehydrogenase Total Creatine Kinase C-Reactive Protein Total Protein Albumin Folate PTH Intact Urine WBC (Auto) Urine Creatinine Urine Chloride Urine Total Protein Fluid Glucose Fluid Total Protein Vancomycin Trough Miscellaneous Test Crossmatch 09/13/18 09/13/18 09/13/18 01:13 02:24 02:24 WBC 18.7 H RBC Hgb 11.6 L Hct MCHC RDW Plt Count Lymph % (Auto) [place] % (Auto) Lymph # [place] # Seg Neutrophils % Seg Neuts % (Manual) Lymphocytes % (Manual) Seg Neutrophils # Seg Neutrophils # Man Lymphocytes # (Manual) PT INR APTT POC ABG pH POC ABG pCO2 POC ABG pO2 Sodium 147 H Potassium 6.2 H* D Chloride 111.9 H Carbon Dioxide 19 L BUN 80 H Creatinine 5.1 H D Glucose 112 H POC Glucose Lactic Acid 5.20 H* Calcium 6.7 L D Phosphorus Magnesium Iron TIBC AST ALT Alkaline Phosphatase Lactate Dehydrogenase Total Creatine Kinase C-Reactive Protein Total Protein Albumin Folate PTH Intact Urine WBC (Auto) Urine Creatinine Urine Chloride Urine Total Protein Fluid Glucose Fluid Total Protein Vancomycin Trough Miscellaneous Test Crossmatch 05/26/18 05/26/18 05/26/18 04:20 04:20 05:39 WBC RBC Hgb Hct MCHC RDW Plt Count Lymph % (Auto) [place] % (Auto) Lymph # [place] # Seg Neutrophils % Seg Neuts % (Manual) Lymphocytes % (Manual) Seg Neutrophils # Seg Neutrophils # Man Lymphocytes # (Manual) PT INR APTT POC ABG pH POC ABG pCO2 POC ABG pO2 Sodium 150 H Potassium Chloride 110.0 H Carbon Dioxide 19 L BUN 66 H Creatinine Glucose 166 H POC Glucose 187 H Lactic Acid 5.10 H* Calcium 6.9 L Phosphorus 6.70 H D Magnesium Iron TIBC AST ALT Alkaline Phosphatase Lactate Dehydrogenase Total Creatine Kinase C-Reactive Protein Total Protein Albumin Folate PTH Intact Urine WBC (Auto) Urine Creatinine Urine Chloride Urine Total Protein Fluid Glucose Fluid Total Protein Vancomycin Trough Miscellaneous Test Crossmatch 05/26/18 05/26/18 05/26/18 06:02 07:29 11:00 WBC RBC Hgb Hct MCHC RDW Plt Count Lymph % (Auto) [place] % (Auto) Lymph # [place] # Seg Neutrophils % Seg Neuts % (Manual) Lymphocytes % (Manual) Seg Neutrophils # Seg Neutrophils # Man Lymphocytes # (Manual) PT INR APTT POC ABG pH POC ABG pCO2 28.8 L POC ABG pO2 Sodium Potassium Chloride Carbon Dioxide BUN Creatinine Glucose POC Glucose Lactic Acid 4.80 H* 3.80 H* Calcium Phosphorus Magnesium Iron TIBC AST ALT Alkaline Phosphatase Lactate Dehydrogenase Total Creatine Kinase C-Reactive Protein Total Protein Albumin Folate PTH Intact Urine WBC (Auto) Urine Creatinine Urine Chloride Urine Total Protein Fluid Glucose Fluid Total Protein Vancomycin Trough Miscellaneous Test Crossmatch 05/26/18 05/26/18 05/26/18 11:01 12:28 18:00 WBC RBC Hgb Hct MCHC RDW Plt Count Lymph % (Auto) [place] % (Auto) Lymph # [place] # Seg Neutrophils % Seg Neuts % (Manual) Lymphocytes % (Manual) Seg Neutrophils # Seg Neutrophils # Man Lymphocytes # (Manual) PT INR APTT POC ABG pH POC ABG pCO2 POC ABG pO2 Sodium 150 H 151 H Potassium 5.3 H D 6.1 H* Chloride 110.3 H 117.0 H Carbon Dioxide 21 L 20 L BUN 75 H 77 H Creatinine 4.3 H D 4.6 H Glucose 161 H POC Glucose 114 H Lactic Acid Calcium 7.5 L 6.7 L Phosphorus Magnesium Iron TIBC AST 1041 H ALT 406 H Alkaline Phosphatase 281 H Lactate Dehydrogenase Total Creatine Kinase C-Reactive Protein Total Protein 4.4 L Albumin 1.3 L Folate PTH Intact Urine WBC (Auto) Urine Creatinine Urine Chloride Urine Total Protein Fluid Glucose Fluid Total Protein Vancomycin Trough Miscellaneous Test Crossmatch 05/26/18 05/26/18 05/27/18 18:02 19:17 01:01 WBC 21.7 H RBC 2.70 L Hgb 7.8 L D Hct 24.6 L D MCHC RDW 15.3 H Plt Count Lymph % (Auto) [place] % (Auto) Lymph # [place] # Seg Neutrophils % Seg Neuts % (Manual) 94.0 H Lymphocytes % (Manual) 3.0 L Seg Neutrophils # Seg Neutrophils # Man 20.4 H Lymphocytes # (Manual) 0.7 L PT INR APTT POC ABG pH 7.159 L 7.205 L POC ABG pCO2 54.5 H 53.0 H POC ABG pO2 252 H Sodium Potassium Chloride Carbon Dioxide BUN Creatinine Glucose POC Glucose Lactic Acid Calcium Phosphorus Magnesium Iron TIBC AST ALT Alkaline Phosphatase Lactate Dehydrogenase Total Creatine Kinase C-Reactive Protein Total Protein Albumin Folate PTH Intact Urine WBC (Auto) Urine Creatinine Urine Chloride Urine Total Protein Fluid Glucose Fluid Total Protein Vancomycin Trough Miscellaneous Test Crossmatch 05/27/18 05/27/18 05/27/18 05:15 05:15 06:11 WBC 24.9 H RBC 2.86 L Hgb 8.1 L Hct 25.9 L MCHC RDW 15.5 H Plt Count Lymph % (Auto) [place] % (Auto) Lymph # [place] # Seg Neutrophils % Seg Neuts % (Manual) Lymphocytes % (Manual) Seg Neutrophils # Seg Neutrophils # Man Lymphocytes # (Manual) PT INR APTT POC ABG pH 7.265 L POC ABG pCO2 46.2 H POC ABG pO2 111 H Sodium 149 H Potassium 6.9 H* Chloride 113.5 H Carbon Dioxide BUN 89 H Creatinine 5.2 H Glucose 118 H POC Glucose Lactic Acid Calcium 7.0 L Phosphorus 9.70 H D Magnesium Iron TIBC AST 876 H ALT 408 H Alkaline Phosphatase Lactate Dehydrogenase Total Creatine Kinase C-Reactive Protein Total Protein 5.2 L Albumin 1.5 L Folate PTH Intact Urine WBC (Auto) Urine Creatinine Urine Chloride Urine Total Protein Fluid Glucose Fluid Total Protein Vancomycin Trough Miscellaneous Test Crossmatch 05/27/18 05/27/18 05/27/18 08:48 10:22 10:22 WBC RBC Hgb Hct MCHC RDW Plt Count Lymph % (Auto) [place] % (Auto) Lymph # [place] # Seg Neutrophils % Seg Neuts % (Manual) Lymphocytes % (Manual) Seg Neutrophils # Seg Neutrophils # Man Lymphocytes # (Manual) PT INR APTT POC ABG pH POC ABG pCO2 POC ABG pO2 Sodium 146 H Potassium 6.1 H* Chloride 108.2 H Carbon Dioxide 21 L BUN 88 H Creatinine 5.6 H Glucose 163 H POC Glucose 164 H Lactic Acid Calcium 6.7 L Phosphorus Magnesium Iron TIBC AST ALT Alkaline Phosphatase Lactate Dehydrogenase Total Creatine Kinase C-Reactive Protein 40.70 H Total Protein Albumin Folate PTH Intact Urine WBC (Auto) Urine Creatinine Urine Chloride Urine Total Protein Fluid Glucose Fluid Total Protein Vancomycin Trough Miscellaneous Test Crossmatch 05/27/18 05/27/18 05/27/18 13:02 17:39 23:27 WBC RBC Hgb Hct MCHC RDW Plt Count Lymph % (Auto) [place] % (Auto) Lymph # [place] # Seg Neutrophils % Seg Neuts % (Manual) Lymphocytes % (Manual) Seg Neutrophils # Seg Neutrophils # Man Lymphocytes # (Manual) PT INR APTT POC ABG pH POC ABG pCO2 POC ABG pO2 Sodium Potassium Chloride Carbon Dioxide BUN Creatinine Glucose POC Glucose 59 L 132 H Lactic Acid Calcium Phosphorus Magnesium Iron TIBC AST ALT Alkaline Phosphatase Lactate Dehydrogenase Total Creatine Kinase C-Reactive Protein Total Protein Albumin Folate PTH Intact Urine WBC (Auto) Urine Creatinine Urine Chloride Urine Total Protein Fluid Glucose Fluid Total Protein Vancomycin Trough Miscellaneous Test Flexitest 1 H Crossmatch 05/27/18 05/28/18 05/28/18 Unknown 04:32 05:00 WBC RBC Hgb Hct MCHC RDW Plt Count Lymph % (Auto) [place] % (Auto) Lymph # [place] # Seg Neutrophils % Seg Neuts % (Manual) Lymphocytes % (Manual) Seg Neutrophils # Seg Neutrophils # Man Lymphocytes # (Manual) PT INR APTT POC ABG pH POC ABG pCO2 POC ABG pO2 134 H Sodium Potassium Chloride Carbon Dioxide BUN 69 H Creatinine 4.4 H Glucose 118 H POC Glucose Lactic Acid Calcium 8.0 L D Phosphorus 6.80 H D Magnesium Iron TIBC AST ALT Alkaline Phosphatase Lactate Dehydrogenase Total Creatine Kinase C-Reactive Protein Total Protein Albumin Folate PTH Intact Urine WBC (Auto) 120.0 H Urine Creatinine Urine Chloride Urine Total Protein Fluid Glucose Fluid Total Protein Vancomycin Trough Miscellaneous Test Crossmatch 05/28/18 05/28/18 05/28/18 05:00 05:27 13:04 WBC 26.5 H RBC 2.69 L Hgb 7.7 L Hct 23.6 L MCHC RDW Plt Count Lymph % (Auto) [place] % (Auto) Lymph # [place] # Seg Neutrophils % Seg Neuts % (Manual) 96.0 H Lymphocytes % (Manual) 0 L Seg Neutrophils # Seg Neutrophils # Man 25.4 H Lymphocytes # (Manual) 0.0 L PT INR APTT POC ABG pH POC ABG pCO2 POC ABG pO2 Sodium Potassium Chloride Carbon Dioxide BUN Creatinine Glucose POC Glucose 128 H 155 H Lactic Acid Calcium Phosphorus Magnesium Iron TIBC AST ALT Alkaline Phosphatase Lactate Dehydrogenase Total Creatine Kinase C-Reactive Protein Total Protein Albumin Folate PTH Intact Urine WBC (Auto) Urine Creatinine Urine Chloride Urine Total Protein Fluid Glucose Fluid Total Protein Vancomycin Trough Miscellaneous Test Crossmatch 05/28/18 05/29/18 05/29/18 17:56 03:35 04:00 WBC RBC Hgb Hct MCHC RDW Plt Count Lymph % (Auto) [place] % (Auto) Lymph # [place] # Seg Neutrophils % Seg Neuts % (Manual) Lymphocytes % (Manual) Seg Neutrophils # Seg Neutrophils # Man Lymphocytes # (Manual) PT INR APTT POC ABG pH 7.471 H POC ABG pCO2 POC ABG pO2 78 L Sodium Potassium Chloride Carbon Dioxide BUN 50 H Creatinine 3.9 H Glucose POC Glucose 110 H Lactic Acid Calcium 7.7 L Phosphorus Magnesium 1.50 L Iron TIBC AST 218 H ALT 204 H Alkaline Phosphatase Lactate Dehydrogenase Total Creatine Kinase C-Reactive Protein Total Protein 5.4 L Albumin 1.6 L Folate PTH Intact Urine WBC (Auto) Urine Creatinine Urine Chloride Urine Total Protein Fluid Glucose Fluid Total Protein Vancomycin Trough Miscellaneous Test Crossmatch 05/29/18 05/29/18 05/30/18 11:51 23:56 04:54 WBC RBC Hgb Hct MCHC RDW Plt Count Lymph % (Auto) [place] % (Auto) Lymph # [place] # Seg Neutrophils % Seg Neuts % (Manual) Lymphocytes % (Manual) Seg Neutrophils # Seg Neutrophils # Man Lymphocytes # (Manual) PT INR APTT POC ABG pH POC ABG pCO2 POC ABG pO2 Sodium Potassium Chloride Carbon Dioxide BUN Creatinine Glucose POC Glucose 131 H 119 H 115 H Lactic Acid Calcium Phosphorus Magnesium Iron TIBC AST ALT Alkaline Phosphatase Lactate Dehydrogenase Total Creatine Kinase C-Reactive Protein Total Protein Albumin Folate PTH Intact Urine WBC (Auto) Urine Creatinine Urine Chloride Urine Total Protein Fluid Glucose Fluid Total Protein Vancomycin Trough Miscellaneous Test Crossmatch 05/30/18 05/30/18 05/30/18 05:07 05:15 05:15 WBC 16.2 H RBC 2.53 L Hgb 7.4 L Hct 21.9 L MCHC RDW Plt Count Lymph % (Auto) [place] % (Auto) Lymph # [place] # Seg Neutrophils % Seg Neuts % (Manual) Lymphocytes % (Manual) Seg Neutrophils # Seg Neutrophils # Man Lymphocytes # (Manual) PT INR APTT POC ABG pH POC ABG pCO2 34.5 L POC ABG pO2 133 H Sodium 135 L Potassium Chloride 97.5 L Carbon Dioxide BUN 69 H Creatinine 5.4 H Glucose 105 H POC Glucose Lactic Acid Calcium 7.5 L Phosphorus 5.30 H D Magnesium Iron TIBC AST ALT Alkaline Phosphatase Lactate Dehydrogenase Total Creatine Kinase C-Reactive Protein Total Protein Albumin Folate PTH Intact Urine WBC (Auto) Urine Creatinine Urine Chloride Urine Total Protein Fluid Glucose Fluid Total Protein Vancomycin Trough Miscellaneous Test Crossmatch 05/30/18 05/30/18 05/31/18 12:13 17:10 04:50 WBC 18.7 H RBC 2.86 L Hgb 8.2 L Hct 24.8 L MCHC RDW Plt Count Lymph % (Auto) [place] % (Auto) Lymph # [place] # Seg Neutrophils % Seg Neuts % (Manual) 91.0 H Lymphocytes % (Manual) 2.0 L Seg Neutrophils # Seg Neutrophils # Man 17.0 H Lymphocytes # (Manual) 0.4 L PT INR APTT POC ABG pH POC ABG pCO2 POC ABG pO2 Sodium Potassium Chloride Carbon Dioxide BUN Creatinine Glucose POC Glucose 132 H 122 H Lactic Acid Calcium Phosphorus Magnesium Iron TIBC AST ALT Alkaline Phosphatase Lactate Dehydrogenase Total Creatine Kinase C-Reactive Protein Total Protein Albumin Folate PTH Intact Urine WBC (Auto) Urine Creatinine Urine Chloride Urine Total Protein Fluid Glucose Fluid Total Protein Vancomycin Trough Miscellaneous Test Crossmatch 05/31/18 05/31/18 05/31/18 04:50 05:45 11:37 WBC RBC Hgb Hct MCHC RDW Plt Count Lymph % (Auto) [place] % (Auto) Lymph # [place] # Seg Neutrophils % Seg Neuts % (Manual) Lymphocytes % (Manual) Seg Neutrophils # Seg Neutrophils # Man Lymphocytes # (Manual) PT INR APTT POC ABG pH POC ABG pCO2 POC ABG pO2 Sodium 132 L Potassium Chloride 92.4 L Carbon Dioxide BUN 77 H Creatinine 5.9 H Glucose POC Glucose 111 H 136 H Lactic Acid Calcium 7.3 L Phosphorus 6.40 H D Magnesium Iron TIBC AST ALT Alkaline Phosphatase Lactate Dehydrogenase Total Creatine Kinase C-Reactive Protein Total Protein Albumin Folate PTH Intact Urine WBC (Auto) Urine Creatinine Urine Chloride Urine Total Protein Fluid Glucose Fluid Total Protein Vancomycin Trough Miscellaneous Test Crossmatch 05/31/18 06/01/18 06/01/18 17:52 00:09 04:00 WBC RBC Hgb Hct MCHC RDW Plt Count Lymph % (Auto) [place] % (Auto) Lymph # [place] # Seg Neutrophils % Seg Neuts % (Manual) Lymphocytes % (Manual) Seg Neutrophils # Seg Neutrophils # Man Lymphocytes # (Manual) PT INR APTT POC ABG pH POC ABG pCO2 POC ABG pO2 Sodium Potassium Chloride 97.5 L Carbon Dioxide BUN 49 H Creatinine 4.2 H Glucose 104 H POC Glucose 115 H 114 H Lactic Acid Calcium 7.3 L Phosphorus 4.70 H D Magnesium Iron TIBC AST ALT Alkaline Phosphatase Lactate Dehydrogenase Total Creatine Kinase C-Reactive Protein Total Protein Albumin Folate PTH Intact Urine WBC (Auto) Urine Creatinine Urine Chloride Urine Total Protein Fluid Glucose Fluid Total Protein Vancomycin Trough Miscellaneous Test Crossmatch 06/01/18 06/01/18 06/02/18 11:10 17:56 00:15 WBC RBC Hgb Hct MCHC RDW Plt Count Lymph % (Auto) [place] % (Auto) Lymph # [place] # Seg Neutrophils % Seg Neuts % (Manual) Lymphocytes % (Manual) Seg Neutrophils # Seg Neutrophils # Man Lymphocytes # (Manual) PT INR APTT POC ABG pH POC ABG pCO2 POC ABG pO2 Sodium Potassium Chloride Carbon Dioxide BUN Creatinine Glucose POC Glucose 123 H 126 H 135 H Lactic Acid Calcium Phosphorus Magnesium Iron TIBC AST ALT Alkaline Phosphatase Lactate Dehydrogenase Total Creatine Kinase C-Reactive Protein Total Protein Albumin Folate PTH Intact Urine WBC (Auto) Urine Creatinine Urine Chloride Urine Total Protein Fluid Glucose Fluid Total Protein Vancomycin Trough Miscellaneous Test Crossmatch 06/02/18 06/02/18 06/02/18 05:23 12:42 13:05 WBC RBC Hgb Hct MCHC RDW Plt Count Lymph % (Auto) [place] % (Auto) Lymph # [place] # Seg Neutrophils % Seg Neuts % (Manual) Lymphocytes % (Manual) Seg Neutrophils # Seg Neutrophils # Man Lymphocytes # (Manual) PT 17.1 H INR 1.34 H APTT POC ABG pH POC ABG pCO2 POC ABG pO2 Sodium Potassium Chloride Carbon Dioxide BUN Creatinine Glucose POC Glucose 135 H 142 H Lactic Acid Calcium Phosphorus Magnesium Iron TIBC AST ALT Alkaline Phosphatase Lactate Dehydrogenase Total Creatine Kinase C-Reactive Protein Total Protein Albumin Folate PTH Intact Urine WBC (Auto) Urine Creatinine Urine Chloride Urine Total Protein Fluid Glucose Fluid Total Protein Vancomycin Trough Miscellaneous Test Crossmatch 06/02/18 06/02/18 06/03/18 Unknown Unknown 00:54 WBC 20.8 H RBC 2.67 L Hgb 7.7 L Hct 23.0 L MCHC RDW Plt Count 500 H Lymph % (Auto) [place] % (Auto) Lymph # [place] # Seg Neutrophils % Seg Neuts % (Manual) Lymphocytes % (Manual) Seg Neutrophils # Seg Neutrophils # Man Lymphocytes # (Manual) PT INR APTT POC ABG pH POC ABG pCO2 POC ABG pO2 Sodium 136 L Potassium 3.5 L Chloride 96.9 L Carbon Dioxide BUN 62 H Creatinine 4.9 H Glucose 133 H POC Glucose 125 H Lactic Acid Calcium 7.2 L Phosphorus 5.00 H Magnesium Iron TIBC AST 46 H ALT 66 H Alkaline Phosphatase Lactate Dehydrogenase Total Creatine Kinase C-Reactive Protein Total Protein 5.7 L Albumin 1.5 L Folate PTH Intact Urine WBC (Auto) Urine Creatinine Urine Chloride Urine Total Protein Fluid Glucose Fluid Total Protein Vancomycin Trough Miscellaneous Test Crossmatch 06/03/18 06/03/18 06/03/18 03:31 09:18 09:18 WBC RBC Hgb Hct MCHC RDW Plt Count Lymph % (Auto) [place] % (Auto) Lymph # [place] # Seg Neutrophils % Seg Neuts % (Manual) Lymphocytes % (Manual) Seg Neutrophils # Seg Neutrophils # Man Lymphocytes # (Manual) PT 17.1 H INR 1.34 H APTT POC ABG pH POC ABG pCO2 POC ABG pO2 Sodium 136 L Potassium Chloride Carbon Dioxide BUN 41 H Creatinine 3.4 H Glucose 129 H POC Glucose Lactic Acid Calcium 7.4 L Phosphorus Magnesium Iron TIBC AST ALT Alkaline Phosphatase Lactate Dehydrogenase Total Creatine Kinase C-Reactive Protein 11.10 H Total Protein Albumin Folate PTH Intact Urine WBC (Auto) Urine Creatinine Urine Chloride Urine Total Protein Fluid Glucose Fluid Total Protein Vancomycin Trough Miscellaneous Test Crossmatch 06/03/18 06/03/18 06/03/18 16:07 21:18 Unknown WBC RBC Hgb Hct MCHC RDW Plt Count Lymph % (Auto) [place] % (Auto) Lymph # [place] # Seg Neutrophils % Seg Neuts % (Manual) Lymphocytes % (Manual) Seg Neutrophils # Seg Neutrophils # Man Lymphocytes # (Manual) PT INR APTT POC ABG pH POC ABG pCO2 POC ABG pO2 Sodium Potassium Chloride Carbon Dioxide BUN Creatinine Glucose POC Glucose 144 H 128 H Lactic Acid Calcium Phosphorus Magnesium Iron TIBC AST ALT Alkaline Phosphatase Lactate Dehydrogenase Total Creatine Kinase C-Reactive Protein Total Protein Albumin Folate PTH Intact Urine WBC (Auto) Urine Creatinine Urine Chloride Urine Total Protein Fluid Glucose 10 L Fluid Total Protein 3.7 L Vancomycin Trough Miscellaneous Test Crossmatch 06/04/18 06/04/18 06/04/18 04:31 06:14 11:38 WBC RBC Hgb Hct MCHC RDW Plt Count Lymph % (Auto) [place] % (Auto) Lymph # [place] # Seg Neutrophils % Seg Neuts % (Manual) Lymphocytes % (Manual) Seg Neutrophils # Seg Neutrophils # Man Lymphocytes # (Manual) PT INR APTT POC ABG pH POC ABG pCO2 POC ABG pO2 Sodium Potassium Chloride Carbon Dioxide BUN 55 H Creatinine 3.7 H Glucose 151 H POC Glucose 145 H 129 H Lactic Acid Calcium 7.8 L Phosphorus 4.60 H Magnesium Iron TIBC AST ALT Alkaline Phosphatase Lactate Dehydrogenase Total Creatine Kinase C-Reactive Protein Total Protein Albumin Folate PTH Intact Urine WBC (Auto) Urine Creatinine Urine Chloride Urine Total Protein Fluid Glucose Fluid Total Protein Vancomycin Trough Miscellaneous Test Crossmatch 06/04/18 06/04/18 06/04/18 17:09 20:00 21:29 WBC RBC Hgb 8.8 L Hct 27.3 L MCHC RDW Plt Count Lymph % (Auto) [place] % (Auto) Lymph # [place] # Seg Neutrophils % Seg Neuts % (Manual) Lymphocytes % (Manual) Seg Neutrophils # Seg Neutrophils # Man Lymphocytes # (Manual) PT INR APTT POC ABG pH POC ABG pCO2 POC ABG pO2 Sodium Potassium Chloride Carbon Dioxide BUN Creatinine Glucose POC Glucose 142 H 130 H Lactic Acid Calcium Phosphorus Magnesium Iron TIBC AST ALT Alkaline Phosphatase Lactate Dehydrogenase Total Creatine Kinase C-Reactive Protein Total Protein Albumin Folate PTH Intact Urine WBC (Auto) Urine Creatinine Urine Chloride Urine Total Protein Fluid Glucose Fluid Total Protein Vancomycin Trough Miscellaneous Test Crossmatch 06/05/18 06/05/18 06/05/18 06:30 07:00 07:00 WBC 19.3 H RBC 2.94 L Hgb 8.3 L Hct 25.6 L MCHC RDW 15.7 H Plt Count 568 H Lymph % (Auto) 4.7 L [place] % (Auto) Lymph # 0.9 L [place] # 1.1 H Seg Neutrophils % 88.9 H Seg Neuts % (Manual) Lymphocytes % (Manual) Seg Neutrophils # 17.2 H Seg Neutrophils # Man Lymphocytes # (Manual) PT INR APTT POC ABG pH POC ABG pCO2 POC ABG pO2 Sodium Potassium 3.4 L D Chloride Carbon Dioxide BUN 67 H Creatinine 3.6 H Glucose 145 H POC Glucose 153 H Lactic Acid Calcium 7.9 L Phosphorus 4.60 H Magnesium Iron TIBC AST ALT Alkaline Phosphatase Lactate Dehydrogenase Total Creatine Kinase C-Reactive Protein Total Protein Albumin Folate PTH Intact Urine WBC (Auto) Urine Creatinine Urine Chloride Urine Total Protein Fluid Glucose Fluid Total Protein Vancomycin Trough Miscellaneous Test Crossmatch 06/05/18 06/05/18 06/06/18 12:10 16:01 06:39 WBC RBC Hgb Hct MCHC RDW Plt Count Lymph % (Auto) [place] % (Auto) Lymph # [place] # Seg Neutrophils % Seg Neuts % (Manual) Lymphocytes % (Manual) Seg Neutrophils # Seg Neutrophils # Man Lymphocytes # (Manual) PT INR APTT POC ABG pH POC ABG pCO2 POC ABG pO2 Sodium Potassium Chloride Carbon Dioxide BUN Creatinine Glucose POC Glucose 150 H 129 H 131 H Lactic Acid Calcium Phosphorus Magnesium Iron TIBC AST ALT Alkaline Phosphatase Lactate Dehydrogenase Total Creatine Kinase C-Reactive Protein Total Protein Albumin Folate PTH Intact Urine WBC (Auto) Urine Creatinine Urine Chloride Urine Total Protein Fluid Glucose Fluid Total Protein Vancomycin Trough Miscellaneous Test Crossmatch 06/06/18 06/06/18 06/06/18 07:14 07:14 07:14 WBC 16.5 H RBC 2.84 L Hgb 8.1 L Hct 25.2 L MCHC RDW 16.4 H Plt Count 526 H Lymph % (Auto) 6.5 L [place] % (Auto) Lymph # 1.1 L [place] # 1.2 H Seg Neutrophils % 85.3 H Seg Neuts % (Manual) Lymphocytes % (Manual) Seg Neutrophils # 14.1 H Seg Neutrophils # Man Lymphocytes # (Manual) PT INR APTT POC ABG pH POC ABG pCO2 POC ABG pO2 Sodium Potassium Chloride 109.1 H Carbon Dioxide 21 L BUN 76 H Creatinine 3.5 H Glucose 111 H POC Glucose Lactic Acid Calcium 8.1 L Phosphorus Magnesium Iron TIBC AST ALT Alkaline Phosphatase Lactate Dehydrogenase Total Creatine Kinase C-Reactive Protein 4.70 H Total Protein Albumin Folate PTH Intact Urine WBC (Auto) Urine Creatinine Urine Chloride Urine Total Protein Fluid Glucose Fluid Total Protein Vancomycin Trough Miscellaneous Test Crossmatch 06/06/18 06/06/18 06/06/18 11:15 18:00 23:58 WBC RBC Hgb Hct MCHC RDW Plt Count Lymph % (Auto) [place] % (Auto) Lymph # [place] # Seg Neutrophils % Seg Neuts % (Manual) Lymphocytes % (Manual) Seg Neutrophils # Seg Neutrophils # Man Lymphocytes # (Manual) PT INR APTT POC ABG pH POC ABG pCO2 POC ABG pO2 Sodium Potassium Chloride Carbon Dioxide BUN Creatinine Glucose POC Glucose 127 H 130 H 114 H Lactic Acid Calcium Phosphorus Magnesium Iron TIBC AST ALT Alkaline Phosphatase Lactate Dehydrogenase Total Creatine Kinase C-Reactive Protein Total Protein Albumin Folate PTH Intact Urine WBC (Auto) Urine Creatinine Urine Chloride Urine Total Protein Fluid Glucose Fluid Total Protein Vancomycin Trough Miscellaneous Test Crossmatch 06/07/18 06/07/18 06/07/18 05:45 05:45 05:54 WBC 15.5 H RBC 2.60 L Hgb 7.4 L Hct 23.1 L MCHC RDW 16.5 H Plt Count 506 H Lymph % (Auto) 5.3 L [place] % (Auto) Lymph # 0.8 L [place] # 1.0 H Seg Neutrophils % 86.6 H Seg Neuts % (Manual) Lymphocytes % (Manual) Seg Neutrophils # 13.4 H Seg Neutrophils # Man Lymphocytes # (Manual) PT INR APTT POC ABG pH POC ABG pCO2 POC ABG pO2 Sodium Potassium Chloride 108.4 H Carbon Dioxide BUN 84 H Creatinine 3.5 H Glucose 119 H POC Glucose 114 H Lactic Acid Calcium 8.1 L Phosphorus 5.10 H Magnesium Iron TIBC AST ALT Alkaline Phosphatase Lactate Dehydrogenase Total Creatine Kinase C-Reactive Protein Total Protein Albumin Folate PTH Intact Urine WBC (Auto) Urine Creatinine Urine Chloride Urine Total Protein Fluid Glucose Fluid Total Protein Vancomycin Trough Miscellaneous Test Crossmatch 06/07/18 06/08/18 06/08/18 12:15 05:05 05:24 WBC RBC Hgb Hct MCHC RDW Plt Count Lymph % (Auto) [place] % (Auto) Lymph # [place] # Seg Neutrophils % Seg Neuts % (Manual) Lymphocytes % (Manual) Seg Neutrophils # Seg Neutrophils # Man Lymphocytes # (Manual) PT INR APTT POC ABG pH POC ABG pCO2 POC ABG pO2 Sodium 148 H Potassium Chloride 112.4 H Carbon Dioxide BUN 89 H Creatinine 3.4 H Glucose 120 H POC Glucose 148 H 115 H Lactic Acid Calcium 7.9 L Phosphorus Magnesium Iron TIBC AST ALT Alkaline Phosphatase Lactate Dehydrogenase Total Creatine Kinase C-Reactive Protein Total Protein Albumin Folate PTH Intact Urine WBC (Auto) Urine Creatinine Urine Chloride Urine Total Protein Fluid Glucose Fluid Total Protein Vancomycin Trough Miscellaneous Test Crossmatch 06/08/18 06/08/18 06/09/18 21:36 21:43 00:05 WBC RBC 2.98 L Hgb 8.8 L Hct 26.6 L MCHC RDW 16.7 H Plt Count 463 H Lymph % (Auto) 7.9 L [place] % (Auto) Lymph # 0.8 L [place] # Seg Neutrophils % 84.8 H Seg Neuts % (Manual) Lymphocytes % (Manual) Seg Neutrophils # 8.6 H Seg Neutrophils # Man Lymphocytes # (Manual) PT INR APTT POC ABG pH POC ABG pCO2 POC ABG pO2 Sodium Potassium Chloride Carbon Dioxide BUN Creatinine Glucose POC Glucose 140 H Lactic Acid Calcium Phosphorus Magnesium Iron TIBC AST ALT Alkaline Phosphatase Lactate Dehydrogenase 297 H Total Creatine Kinase C-Reactive Protein Total Protein Albumin Folate PTH Intact Urine WBC (Auto) Urine Creatinine Urine Chloride Urine Total Protein Fluid Glucose Fluid Total Protein Vancomycin Trough Miscellaneous Test Crossmatch 06/09/18 06/09/18 06/09/18 05:34 05:50 05:50 WBC RBC 2.32 L Hgb 6.8 L Hct 20.7 L MCHC RDW 16.7 H Plt Count Lymph % (Auto) [place] % (Auto) Lymph # [place] # Seg Neutrophils % Seg Neuts % (Manual) Lymphocytes % (Manual) Seg Neutrophils # Seg Neutrophils # Man Lymphocytes # (Manual) PT INR APTT POC ABG pH POC ABG pCO2 POC ABG pO2 Sodium 153 H Potassium Chloride 117.3 H Carbon Dioxide BUN 84 H Creatinine 3.2 H Glucose 117 H POC Glucose 146 H Lactic Acid Calcium 7.9 L Phosphorus Magnesium Iron TIBC AST ALT Alkaline Phosphatase Lactate Dehydrogenase Total Creatine Kinase C-Reactive Protein Total Protein Albumin Folate PTH Intact Urine WBC (Auto) Urine Creatinine Urine Chloride Urine Total Protein Fluid Glucose Fluid Total Protein Vancomycin Trough Miscellaneous Test Crossmatch 06/09/18 06/09/18 06/09/18 10:34 10:41 11:56 WBC RBC 2.43 L Hgb 7.2 L Hct 21.6 L MCHC RDW 16.8 H Plt Count Lymph % (Auto) [place] % (Auto) Lymph # [place] # Seg Neutrophils % Seg Neuts % (Manual) Lymphocytes % (Manual) Seg Neutrophils # Seg Neutrophils # Man Lymphocytes # (Manual) PT INR APTT POC ABG pH POC ABG pCO2 POC ABG pO2 Sodium 149 H Potassium Chloride 114.6 H Carbon Dioxide BUN 84 H Creatinine 3.1 H Glucose 137 H POC Glucose 141 H Lactic Acid Calcium 7.7 L Phosphorus Magnesium Iron TIBC AST ALT Alkaline Phosphatase Lactate Dehydrogenase Total Creatine Kinase C-Reactive Protein Total Protein Albumin Folate PTH Intact Urine WBC (Auto) Urine Creatinine Urine Chloride Urine Total Protein Fluid Glucose Fluid Total Protein Vancomycin Trough Miscellaneous Test Crossmatch 06/09/18 06/09/18 13:24 18:18 WBC RBC Hgb Hct MCHC RDW Plt Count Lymph % (Auto) [place] % (Auto) Lymph # [place] # Seg Neutrophils % Seg Neuts % (Manual) Lymphocytes % (Manual) Seg Neutrophils # Seg Neutrophils # Man Lymphocytes # (Manual) PT INR APTT POC ABG pH POC ABG pCO2 POC ABG pO2 Sodium Potassium Chloride Carbon Dioxide BUN Creatinine Glucose POC Glucose 156 H Lactic Acid Calcium Phosphorus Magnesium Iron TIBC AST ALT Alkaline Phosphatase Lactate Dehydrogenase Total Creatine Kinase C-Reactive Protein Total Protein Albumin Folate PTH Intact Urine WBC (Auto) Urine Creatinine Urine Chloride Urine Total Protein Fluid Glucose Fluid Total Protein Vancomycin Trough Miscellaneous Test Crossmatch See Detail Allied health notes reviewed: nursing
[2018-06-09] MEDS ORDERED: TPN ADULT 2,016 ML IV SCH (20:00)
[2018-06-10] MEDS: LOPRESSOR IV SCH ×4 (00:45→17:39)
[2018-06-10] MEDS: HumuLIN R SUB-Q SCH ×4 (00:45→18:19)
[2018-06-10] MEDS: D5W 1,000 ML IV SCH (05:08)
[2018-06-10] MEDS: ZOSYN/NS 2.25 GM/50ML 2.25 GM/50 ML BAG IV SCH ×3 (05:08→23:07)
[2018-06-10 05:50] LABS: Hematocrit 27.6 % (35.5-45.6); Hemoglobin 9.1 gm/dl (11.8-15.2); Mean Corpuscular HGB Conc 33 % (32-34); Mean Corpuscular Hemoglobin 30 pg (28-32); Mean Corpuscular Volume 90 fl (84-94); Platelet Count 386 K/mm3 (140-440); Red Blood Count 3.07 M/mm3 (3.65-5.03); Red Cell Distribution Width 17.4 % (13.2-15.2)
[2018-06-10 06:15] LABS: Calcium 7.8 mg/dL (8.4-10.2)
[2018-06-10] MEDS: APRESOLINE PO SCH ×3 (06:38→23:05)
--- NOTE | 2018-06-10 07:22 | Progress Note ---
Assessment and Plan 1. Acute kidney injury: Initial MARYLOU in the setting of bilateral hydronephrosis secondary to pelvic mass , now s/p bilateral nephrostomy. Recurrent Acute kidney injury likely ATN now. Patient required urgent hemodialysis due to worsening renal function and persistent hyperkalemia. Last dialyzed on 06/02/18. Hemodialysis catheter was removed. Creatinine leveled off. Renal prognosis is guarded. On PPN / TPN. 2. Electrolytes: Hypernatremia, IV D5W. Monitor. 3. Bowel obstruction: S/p ostomy. 4. Bilateral hydronephrosis: Secondary to pelvic mass. S/p bilateral nephrostomy. S/p Cysto and drainage of abscess. 5. Respiratory failure: S/p extubated. 6. Hypertension: On Clonidine patch 0.6 mg / 24 hr and IV Metoprolol. Monitor BP. 7. Sepsis: Complicated UTI and pneumonia. 8. Anemia. 9. 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 Subjective Date of service: 06/10/18 Principal diagnosis: sq ca - pelvic mass Interval history: Patient was seen and examined at the bedside. Objective - Vital Signs Vital signs: Vital Signs - 12hr 06/09/18 06/09/18 06/09/18 20:34 22:00 23:13 Temperature 98.1 F Pulse Rate 93 H 93 H Respiratory 18 Rate Blood Pressure 150/95 O2 Sat by Pulse 97 97 Oximetry 06/10/18 06/10/18 06/10/18 00:45 02:17 03:00 Temperature 98.8 F 98.6 F Pulse Rate 93 H 91 H 80 Respiratory 20 20 Rate Blood Pressure 150/95 158/96 156/99 O2 Sat by Pulse 98 98 Oximetry 06/10/18 06/10/18 06/10/18 03:30 04:00 04:15 Temperature 98.7 F 98.6 F 97.8 F Pulse Rate 84 79 72 Respiratory 20 20 20 Rate Blood Pressure 148/92 159/104 165/101 O2 Sat by Pulse 97 99 99 Oximetry 06/10/18 06/10/18 06/10/18 05:08 05:09 05:30 Temperature 98.7 F 98.2 F Pulse Rate 95 H 84 Respiratory 20 18 Rate Blood Pressure 169/104 169/104 159/102 O2 Sat by Pulse 97 Oximetry - General Appearance General appearance: well-developed, appears stated age, other (not in distress) EENT: ATNC, PERRL, hearing intact Neck: supple Respiratory: Present: Clear to Ascultation Cardiology: regular, S1S2, no murmurs Gastrointestinal: normoactive bowel sounds, tenderness, other (ostomy, drain and bilateral Nephrostomy noted) Integumentary: no rash Neurologic: other (able to move the extremities) Musculoskeletal: other (no edema) - Lab 06/10/18 05:26 06/10/18 05:26 Most recent lab results Calcium 7.8 mg/dL (8.4-10.2) L 06/10/18 05:26 Phosphorus 3.80 mg/dL (2.5-4.5) 06/10/18 05:26 Magnesium 1.60 mg/dL (1.7-2.3) L 06/10/18 05:26 Urine Creatinine 66.0 mg/dL (0.1-20.0) H 05/13/18 19:39 Urine Sodium 60 mmol/L 05/13/18 19:39 Urine Total Protein 24 mg/dL (5-11.8) H 05/13/18 19:39
[2018-06-10] MEDS ORDERED: MAGNESIUM SULFATE 2GM/50ML 2 GM/50 ML BAG IV ONE (09:00)
--- NOTE | 2018-06-10 11:00 | XRay Report ---
AP CHEST: HISTORY: Follow up left lung infiltrate Medium bilateral pleural effusions have developed. There are bibasilar atelectatic changes which obscures the left lower lobe opacity. The upper lung zones are clear. Mild cardiomegaly is stable. The endotracheal tube and nasogastric tube have been removed. Right IJ venous catheter remains in good position.
[2018-06-10] MEDS: HEPARIN SUB-Q SCH ×2 (11:38→23:06)
[2018-06-10] MEDS: PEPCID IV SCH (11:39)
[2018-06-10] MEDS: FOLVITE PO SCH (11:52)
[2018-06-10] MEDS: FERROUS SULFATE PO SCH ×2 (11:52→23:05)
--- NOTE | 2018-06-10 12:30 | Progress Note ---
Assessment and Plan Pt status quo. states radha cl liq well. Abd soft. ostomy funtioning well. wd vac still not in place advance to full liq diet with 2 cans Ensure pudding per day Selected Entries 06/10/18 12:18 Temperature 98.6 F Pulse Rate 86 Respiratory 18 Rate Blood Pressure 156/101 Laboratory Tests 06/10/18 06/10/18 05:26 05:26 WBC 11.1 H Hgb 9.1 L Hct 27.6 L D Sodium 148 H Potassium 3.8 Chloride 114.7 H Carbon Dioxide 21 L BUN 79 H Creatinine 3.2 H Glucose 121 H Objective Vital Signs - 12hr 06/10/18 06/10/18 06/10/18 00:45 02:17 03:00 Temperature 98.8 F 98.6 F Pulse Rate 93 H 91 H 80 Respiratory 20 20 Rate Blood Pressure 150/95 158/96 156/99 O2 Sat by Pulse 98 98 Oximetry 06/10/18 06/10/18 06/10/18 03:30 04:00 04:15 Temperature 98.7 F 98.6 F 97.8 F Pulse Rate 84 79 72 Respiratory 20 20 20 Rate Blood Pressure 148/92 159/104 165/101 O2 Sat by Pulse 97 99 99 Oximetry 06/10/18 06/10/18 06/10/18 05:08 05:09 05:30 Temperature 98.7 F 98.2 F Pulse Rate 95 H 84 Respiratory 20 18 Rate Blood Pressure 169/104 169/104 159/102 O2 Sat by Pulse 97 Oximetry 06/10/18 06/10/18 06/10/18 07:53 08:40 12:18 Temperature 98.1 F 98.6 F Pulse Rate 74 86 Respiratory 14 18 Rate Blood Pressure 149/93 156/101 O2 Sat by Pulse 94 100 98 Oximetry - Labs 06/10/18 05:26 06/10/18 05:26 Diabetes panel 06/10/18 Range/Units 05:26 Sodium 148 H (137-145) mmol/L Potassium 3.8 (3.6-5.0) mmol/L Chloride 114.7 H (98-107) mmol/L Carbon Dioxide 21 L (22-30) mmol/L BUN 79 H (9-20) mg/dL Creatinine 3.2 H (0.8-1.5) mg/dL Glucose 121 H (75-100) mg/dL Calcium 7.8 L (8.4-10.2) mg/dL Calcium panel 06/10/18 Range/Units 05:26 Calcium 7.8 L (8.4-10.2) mg/dL Phosphorus 3.80 (2.5-4.5) mg/dL Pituitary panel 06/10/18 Range/Units 05:26 Sodium 148 H (137-145) mmol/L Potassium 3.8 (3.6-5.0) mmol/L Chloride 114.7 H (98-107) mmol/L Carbon Dioxide 21 L (22-30) mmol/L BUN 79 H (9-20) mg/dL Creatinine 3.2 H (0.8-1.5) mg/dL Glucose 121 H (75-100) mg/dL Calcium 7.8 L (8.4-10.2) mg/dL Adrenal panel 06/10/18 Range/Units 05:26 Sodium 148 H (137-145) mmol/L Potassium 3.8 (3.6-5.0) mmol/L Chloride 114.7 H (98-107) mmol/L Carbon Dioxide 21 L (22-30) mmol/L BUN 79 H (9-20) mg/dL Creatinine 3.2 H (0.8-1.5) mg/dL Glucose 121 H (75-100) mg/dL Calcium 7.8 L (8.4-10.2) mg/dL
--- NOTE | 2018-06-10 16:33 | Progress Note ---
Assessment and Plan Assessment: 1) Sepsis: Improved. Etiology unclear - most likely necrotic malignancy ? abscess +/- UTI +/- LLL pneumonia -Blood cx 05/15 neg, 05/20 neg, 05/26 neg -CRP=40 -->11 -Procal=79 - 2) Complicated UTI: repeat UA 05/21 28 wbc, trace LE. 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 Enlarged pelvic lymph nodes, bilateral hydronephrosis. -S/p 05/14/18 left and right nephrostomy tube placements and mass biopsy -S/p 05/18/2018 cystoscopy with right great toe pyelogram found to have a bladder mass and prostate mass -S/p 05/26/18 diverting colostomy. 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 Similar to prior. Differential diagnosis includes low-grade incomplete obstruction, ileus, and enterocolitis. -CT 06/06 - Large mass is seen again in the pelvis with central low density. suggesting necrosis. Cannot exclude superimposed infectious process. -Paracenthesis 06/03 + [facility] -06/07 CT guided placement of drainage catheter of purulent appearing serous fluid aspirated. Samples were sent for laboratory analysis. -06/08 Small Bowel Xray - No evidence of Small bowel obstruction 4) LLL pneumonia, sputum cx + Yeast 5) MARYLOU 6) Weight loss Plan: -f/u on samples of CT guided drainage -f/u on CRP -continue zosyn renally dosed to covered both anaerobic GNR and Staph epi -upon discharge will do zosyn IV 2.25 g q12 while on HD total 3 weeks until . This are preliminary orders, may need to be adjusted depending on new CT guided - - drainage results and renal recovery. -restarted on soft diet, was not tolerated yesterday -family meeting, patient may be discharged to LTAC facility next week. Dr. Torres will be taking call from home on Wednesday, , and rounding in the hospital on Wednesday. [facility] M: [phone] O:[phone] Subjective Date of service: 06/10/18 Principal diagnosis: sq ca - pelvic mass Interval history: Patient laying in bed asleep. Not easily arousable, non conversant today. Microbiology: Blood cultures: 05/15 neg 05/20 neg 05/26 ngtd Urine cultures: 05/21 neg 05/27 neg Sputum: 05/27 yeast OR cultures: 05/26 Bacteroides fragilis Peritoneal Fluid 06/03 - [facility] Current Antimicrobials: Zosyn Previous Antimicrobials: Cefepime zyvox Levaquin Objective - Exam Narrative Exam: General appearance: Alert in NAD, Eyes: anicteric sclerae, moist conjunctivae; no lid-lag; PERRLA HENT: Atraumatic; oropharynx +EET +NGT. Normal external ears. +temporal wasting Neck: Trachea midline; supple, no thyromegaly or lymphadenopathy Lungs: amy rhonchi CV: RRR, no murmurs Abdomen: Soft, +diverting colostomy +multiple drains and amy PC nephros Extremities: No peripheral edema or extremity lymphadenopathy Skin: Normal temperature, turgor and texture; no rash, ulcers or subcutaneous nodules Psych: alert and oriented to self and place. Neuro: Alert and oriented to self and place Lines: right fem line, right IJ - Constitutional Vitals: Vital Signs Temp Pulse Resp BP Pulse Ox 98.6 F 86 18 156/101 98 06/10/18 12:18 06/10/18 12:18 06/10/18 12:18 06/10/18 12:18 06/10/18 12:18 Temperature -Last 24 Hours Temperature 98.6 F Temperature 98.1 F Temperature 98.2 F Temperature 98.7 F Temperature 97.8 F Temperature 98.6 F Temperature 98.7 F Temperature 98.6 F Temperature 98.8 F Temperature 98.1 F Temperature 97.8 F Temperature 98.0 F - Labs CBC & Chem 7: 06/10/18 05:26 06/10/18 05:26 Labs: Abnormal lab results 06/09/18 06/09/18 06/09/18 Range/Units 13:24 18:18 23:13 WBC (4.5-11.0) K/mm3 RBC (3.65-5.03) M/mm3 Hgb (11.8-15.2) gm/dl Hct (35.5-45.6) % RDW (13.2-15.2) % Sodium (137-145) mmol/L Chloride (98-107) mmol/L Carbon Dioxide (22-30) mmol/L BUN (9-20) mg/dL Creatinine (0.8-1.5) mg/dL Glucose (75-100) mg/dL POC Glucose 156 H 163 H (70-105) Calcium (8.4-10.2) mg/dL Magnesium (1.7-2.3) mg/dL Crossmatch See Detail 06/10/18 06/10/18 06/10/18 Range/Units 05:26 05:26 05:31 WBC 11.1 H (4.5-11.0) K/mm3 RBC 3.07 L (3.65-5.03) M/mm3 Hgb 9.1 L (11.8-15.2) gm/dl Hct 27.6 L D (35.5-45.6) % RDW 17.4 H (13.2-15.2) % Sodium 148 H (137-145) mmol/L Chloride 114.7 H (98-107) mmol/L Carbon Dioxide 21 L (22-30) mmol/L BUN 79 H (9-20) mg/dL Creatinine 3.2 H (0.8-1.5) mg/dL Glucose 121 H (75-100) mg/dL POC Glucose 128 H (70-105) Calcium 7.8 L (8.4-10.2) mg/dL Magnesium 1.60 L (1.7-2.3) mg/dL Crossmatch
--- NOTE | 2018-06-10 18:36 | Progress Note ---
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 Continue pain control PRN Bilateral pneumonia (possibly aspiration) Monitor respiratory status Continue Nebs PRN Continue antibiotic Sepsis Continue cefepime, metrodazole Acute kidney injury (obstructive uropathy vs contrast nephropathy) HD per nephrology Continue to monitor BMP and kidney fuction Had bilateral nephrostomy tubes placed 05/14/[address] Freeman. Acute deep venous thrombosis Anticoagulation on hold because of anemia, bilateral nephrostomy tubes and abdominal issues Moderate to severe protein calorie malnutrition Continue tube feeding Hypokalemia Potassium and mag replacement as needed Anemia likely due to Chronic illness Plan is for LTAC. had lengthy family meeting. patient is medically stable to go to LTAC. History Interval history: feels better, less abdominal pain Hospitalist Physical - Physical exam Narrative exam: GEN:Not in acute distress, lying in bed, very ill looking, HEENT: Normocephalic, atraumatic, Neck: supple, No JVD Lungs: Clear to auscultaion bilaterally, no crackles Heart:S1 and S2 regular no murmurs, rubs or gallop Abd:soft, mild tender, ostomy, bilat nephrostomy tubes, bowel sounds present Ext: No edema, clubbing or cyanosis Neuro: Awake, alert,oriented - Constitutional Vitals: Temp Pulse Resp BP Pulse Ox 98.0 F 70 16 140/86 99 06/10/18 17:18 06/10/18 17:39 06/10/18 17:18 06/10/18 17:18 06/10/18 17:18 Results - Labs CBC & Chem 7: 06/11/18 05:41 06/11/18 05:41 Labs: Laboratory Last Values WBC 11.1 K/mm3 (4.5-11.0) H 06/10/18 05:26 RBC 3.07 M/mm3 (3.65-5.03) L 06/10/18 05:26 Hgb 9.1 gm/dl (11.8-15.2) L 06/10/18 05:26 Hct 27.6 % (35.5-45.6) L D 06/10/18 05:26 MCV 90 fl (84-94) 06/10/18 05:26 MCH 30 pg (28-32) 06/10/18 05:26 MCHC 33 % (32-34) 06/10/18 05:26 RDW 17.4 % (13.2-15.2) H 06/10/18 05:26 Plt Count 386 K/mm3 (140-440) 06/10/18 05:26 Lymph % (Auto) 7.9 % (13.4-35.0) L 06/08/18 21:43 [place] % (Auto) 5.7 % (0.0-7.3) 06/08/18 21:43 Eos % (Auto) 0.3 % (0.0-4.3) 06/08/18 21:43 Baso % (Auto) 1.3 % (0.0-1.8) 06/08/18 21:43 Lymph # 0.8 K/mm3 (1.2-5.4) L 06/08/18 21:43 [place] # 0.6 K/mm3 (0.0-0.8) 06/08/18 21:43 Eos # 0.0 K/mm3 (0.0-0.4) 06/08/18 21:43 Baso # 0.1 K/mm3 (0.0-0.1) 06/08/18 21:43 Add Manual Diff Complete 05/31/18 04:50 Total Counted 100 05/31/18 04:50 Seg Neutrophils % 84.8 % (40.0-70.0) H 06/08/18 21:43 Seg Neuts % (Manual) 91.0 % (40.0-70.0) H 05/31/18 04:50 Band Neutrophils % 2.0 % 05/31/18 04:50 Lymphocytes % (Manual) 2.0 % (13.4-35.0) L 05/31/18 04:50 Reactive Lymphs % (Man) 0 % 05/31/18 04:50 Monocytes % (Manual) 2.0 % (0.0-7.3) 05/31/18 04:50 Eosinophils % (Manual) 1.0 % (0.0-4.3) 05/31/18 04:50 Basophils % (Manual) 0 % (0.0-1.8) 05/31/18 04:50 Metamyelocytes % 1.0 % 05/31/18 04:50 Myelocytes % 1.0 % 05/31/18 04:50 Promyelocytes % 0 % 05/31/18 04:50 Blast Cells % 0 % 05/31/18 04:50 Nucleated RBC % Not Reportable 05/31/18 04:50 Seg Neutrophils # 8.6 K/mm3 (1.8-7.7) H 06/08/18 21:43 Seg Neutrophils # Man 17.0 K/mm3 (1.8-7.7) H 05/31/18 04:50 Band Neutrophils # 0.4 K/mm3 05/31/18 04:50 Lymphocytes # (Manual) 0.4 K/mm3 (1.2-5.4) L 05/31/18 04:50 Abs React Lymphs (Man) 0.0 K/mm3 05/31/18 04:50 Monocytes # (Manual) 0.4 K/mm3 (0.0-0.8) 05/31/18 04:50 Eosinophils # (Manual) 0.2 K/mm3 (0.0-0.4) 05/31/18 04:50 Basophils # (Manual) 0.0 K/mm3 (0.0-0.1) 05/31/18 04:50 Metamyelocytes # 0.2 K/mm3 05/31/18 04:50 Myelocytes # 0.2 K/mm3 05/31/18 04:50 Promyelocytes # 0.0 K/mm3 05/31/18 04:50 Blast Cells # 0.0 K/mm3 05/31/18 04:50 WBC Morphology Not Reportable 05/31/18 04:50 Hypersegmented Neuts Not Reportable 05/31/18 04:50 Hyposegmented Neuts Not Reportable 05/31/18 04:50 Hypogranular Neuts Not Reportable 05/31/18 04:50 Smudge Cells Not Reportable 05/31/18 04:50 Toxic Granulation Not Reportable 05/31/18 04:50 Toxic Vacuolation Not Reportable 05/31/18 04:50 Dohle Bodies Not Reportable 05/31/18 04:50 Pelger-Huet Anomaly Not Reportable 05/31/18 04:50 Mahesh Rods Not Reportable 05/31/18 04:50 Platelet Estimate Appears normal 05/31/18 04:50 Clumped Platelets Not Reportable 05/31/18 04:50 Plt Clumps, EDTA Not Reportable 05/31/18 04:50 Large Platelets Not Reportable 05/31/18 04:50 Giant Platelets Not Reportable 05/31/18 04:50 Platelet Satelliting Not Reportable 05/31/18 04:50 Plt Morphology Comment Not Reportable 05/31/18 04:50 RBC Morphology Not Reportable 05/31/18 04:50 Dimorphic RBCs Not Reportable 05/31/18 04:50 Polychromasia Not Reportable 05/31/18 04:50 Hypochromasia Few 05/31/18 04:50 Poikilocytosis Not Reportable 05/31/18 04:50 Anisocytosis 1+ 05/31/18 04:50 Microcytosis Few 05/31/18 04:50 Macrocytosis Not Reportable 05/31/18 04:50 Spherocytes Not Reportable 05/31/18 04:50 Pappenheimer Bodies Not Reportable 05/31/18 04:50 Sickle Cells Not Reportable 05/31/18 04:50 Target Cells Rare 05/31/18 04:50 Tear Drop Cells Not Reportable 05/31/18 04:50 Ovalocytes 1+ 05/31/18 04:50 Helmet Cells Not Reportable 05/31/18 04:50 [place] Bodies Not Reportable 05/31/18 04:50 [place] Rings Not Reportable 05/31/18 04:50 [place] Cells Not Reportable 05/31/18 04:50 Bite Cells Not Reportable 05/31/18 04:50 Crenated Cell Not Reportable 05/31/18 04:50 Elliptocytes Not Reportable 05/31/18 04:50 Acanthocytes (Spur) Not Reportable 05/31/18 04:50 Rouleaux Not Reportable 05/31/18 04:50 Hemoglobin C Crystals Not Reportable 05/31/18 04:50 Schistocytes Not Reportable 05/31/18 04:50 Malaria parasites Not Reportable 05/31/18 04:50 Mk Bodies Not Reportable 05/31/18 04:50 Hem Pathologist Commnt No 05/31/18 04:50 PT 17.1 Sec. (12.2-14.9) H 06/03/18 09:18 INR 1.34 (0.87-1.13) H 06/03/18 09:18 APTT 40.0 Sec. (24.2-36.6) H 05/23/18 09:03 POC ABG pH 7.362 (7.35-7.45) 05/31/18 09:58 POC ABG pCO2 36.4 (35-45) 05/31/18 09:58 POC ABG pO2 101 (80-105) 05/31/18 09:58 POC ABG HCO3 20.7 05/31/18 09:58 POC ABG Total CO2 22 05/31/18 09:58 POC ABG O2 Sat 98 05/31/18 09:58 POC ABG Base Excess -5 05/31/18 09:58 FiO2 40 % 05/31/18 09:58 Sodium 148 mmol/L (137-145) H 06/10/18 05:26 Potassium 3.8 mmol/L (3.6-5.0) 06/10/18 05:26 Chloride 114.7 mmol/L (98-107) H 06/10/18 05:26 Carbon Dioxide 21 mmol/L (22-30) L 06/10/18 05:26 Anion Gap 16 mmol/L 06/10/18 05:26 BUN 79 mg/dL (9-20) H 06/10/18 05:26 Creatinine 3.2 mg/dL (0.8-1.5) H 06/10/18 05:26 Estimated GFR 25 ml/min 06/10/18 05:26 BUN/Creatinine Ratio 25 % 06/10/18 05:26 Glucose 121 mg/dL (75-100) H 06/10/18 05:26 POC Glucose 99 (70-105) 06/10/18 17:19 Hemoglobin A1c 5.7 % (4-6) 05/14/18 05:05 Lactic Acid 3.80 mmol/L (0.7-2.0) H* 05/26/18 11:00 Calcium 7.8 mg/dL (8.4-10.2) L 06/10/18 05:26 Phosphorus 3.80 mg/dL (2.5-4.5) 06/10/18 05:26 Magnesium 1.60 mg/dL (1.7-2.3) L 06/10/18 05:26 Iron 24 ug/dL (49-181) L 05/16/18 07:02 TIBC 160 mcg/dL (250-450) L 05/16/18 07:02 Ferritin 325.8 ng/mL (13.0-400.0) 05/16/18 07:02 Total Bilirubin 0.50 mg/dL (0.1-1.2) 06/02/18 Unknown AST 46 units/L (5-40) H 06/02/18 Unknown ALT 66 units/L (7-56) H 06/02/18 Unknown Alkaline Phosphatase 119 units/L (35-129) 06/02/18 Unknown Lactate Dehydrogenase 297 units/L (91-180) H 06/08/18 21:36 Total Creatine Kinase 156 units/L (55-170) 05/25/18 22:46 CK-MB (CK-2) 2.3 ng/mL (0.0-4.0) 05/25/18 22:46 CK-MB (CK-2) Rel Index 1.4 (0-4) 05/25/18 22:46 C-Reactive Protein 3.60 mg/dL (0.00-1.30) H 06/10/18 17:15 Total Protein 5.7 g/dL (6.3-8.2) L 06/02/18 Unknown Albumin 1.5 g/dL (3.9-5) L 06/02/18 Unknown Albumin/Globulin Ratio 0.4 % 06/02/18 Unknown Triglycerides 112 mg/dL (2-149) 06/03/18 03:31 Prostate Specific Ag 0.96 ng/mL (0.00-4.00) 05/14/18 13:29 Vitamin B12 359.2 pg/mL (211-911) 05/16/18 07:02 Folate 5.39 ng/mL (7.3-26.0) L 05/16/18 07:02 TSH 3.180 mlU/mL (0.270-4.200) 05/14/18 05:05 PTH Intact 65.37 pg/mL (15-65) H 05/14/18 05:05 Urine Color [place] (Yellow) 05/27/18 Unknown Urine Turbidity Cloudy (Clear) 05/27/18 Unknown Urine pH 5.0 (5.0-7.0) 05/27/18 Unknown Ur Specific [place] 1.026 (1.003-1.030) 05/27/18 Unknown Urine Protein 100 mg/dl mg/dL (Negative) 05/27/18 Unknown Urine Glucose (UA) 50 mg/dL (Negative) 05/27/18 Unknown Urine Ketones Neg mg/dL (Negative) 05/27/18 Unknown Urine Blood Lg (Negative) 05/27/18 Unknown Urine Nitrite Neg (Negative) 05/27/18 Unknown Urine Bilirubin Neg (Negative) 05/27/18 Unknown Urine Urobilinogen < 2.0 mg/dL (<2.0) 05/27/18 Unknown Ur Leukocyte Esterase Mod (Negative) 05/27/18 Unknown Urine WBC (Auto) 120.0 /HPF (0.0-6.0) H 05/27/18 Unknown Urine RBC (Auto) 35.0 /HPF (0.0-6.0) 05/27/18 Unknown U Epithel Cells (Auto) 3.0 /HPF (0-13.0) 05/27/18 Unknown Urine Bacteria (Auto) 1+ /HPF (Negative) 05/27/18 Unknown Urine WBC Clumps Few /HPF 05/13/18 19:39 Urine Mucus Few /HPF 05/27/18 Unknown Urine Yeast (Budding) 2+ /HPF 05/21/18 15:30 Urine Creatinine 66.0 mg/dL (0.1-20.0) H 05/13/18 19:39 Urine Sodium 60 mmol/L 05/13/18 19:39 Urine Potassium 8.69 mmol/L 05/13/18 19:39 Urine Chloride 27.8 mmolL (110-250) L 05/13/18 19:39 Urine Total Protein 24 mg/dL (5-11.8) H 05/13/18 19:39 Fluid Type Ascitic 06/03/18 Unknown Fluid Color Yellow 06/03/18 Unknown Fluid Appearance Cloudy 06/03/18 Unknown Fluid WBC 78447 /mm3 06/03/18 Unknown Fluid RBC 9 /mm3 06/03/18 Unknown Fluid Seg Neutrophils 98.0 % 06/03/18 Unknown Fluid Lymphocytes 2.0 % 06/03/18 Unknown Fluid Reactive Lymphs 0 % 06/03/18 Unknown Fluid Monocytes 0 % 06/03/18 Unknown Fluid Eosinophils 0 % 06/03/18 Unknown Fluid Basophils 0 % 06/03/18 Unknown Fluid Glucose 10 mg/dL (40-70) L 06/03/18 Unknown Fluid Total Protein 3.7 (15.0-45.0) L 06/03/18 Unknown Fluid Albumin 0.8 g/dL 06/03/18 Unknown Fluid LDH > 44817 06/03/18 Unknown Fluid Amylase 126 06/03/18 Unknown Vancomycin Trough 25.1 ug/mL (5.0-20.0) H 05/25/18 22:46 Random Vancomycin 34.3 ug/mL (0-40.0) 05/26/18 11:01 Urine Opiates Screen Presumptive negative 05/13/18 19:39 Urine Methadone Screen Presumptive negative 05/13/18 19:39 Ur Barbiturates Screen Presumptive negative 05/13/18 19:39 Ur Phencyclidine Scrn Presumptive negative 05/13/18 19:39 Ur Amphetamines Screen Presumptive negative 05/13/18 19:39 U Benzodiazepines Scrn Presumptive negative 05/13/18 19:39 Urine Cocaine Screen Presumptive negative 05/13/18 19:39 U Marijuana (THC) Screen Presumptive negative 05/13/18 19:39 Drugs of Abuse Note Disclamer 05/13/18 19:39 ZEUS Screen Negative (Negative) 05/14/18 05:05 Proteinase 3 (PR3) Ab <1.0 AI (<1.0) 05/14/18 05:05 Myeloperoxidase Ab <1.0 AI (<1.0) 05/14/18 05:05 Complement C3 147 mg/dL (82-185) 05/14/18 05:05 Complement C4 45 mg/dL (15-53) 05/14/18 05:05 Hepatitis A IgM Ab Nonreactive (NonReactive) 05/27/18 13:41 Hep Bs Antigen Non-reactive (Negative) 05/27/18 13:41 Hep B Core IgM Ab Non-reactive (NonReactive) 05/27/18 13:41 Hepatitis C Antibody Non-reactive (NonReactive) 05/27/18 13:41 Miscellaneous Test Flexitest 1 H 05/27/18 13:02 Blood Type O POSITIVE 06/09/18 13:24 Antibody Screen Negative 06/09/18 13:24 Crossmatch See Detail 06/09/18 13:24
--- NOTE | 2018-06-10 19:10 | Progress Note ---
Assessment and Plan Patient alert, awake . Resting on 2 litres O2.No acute respiratory distress.O2 saturation 97% on 2 litres O2. Patient afebrile. No leukocytosis.Patients chest xray reported airspace disease left lower lobe.Patient has history of smoking in the past. He works as [employer]. - Patient Problems (1) Sepsis Current Visit: Yes Status: Acute Plan to address problem: Patient is on Zosyn (2) Acute renal failure Current Visit: Yes Status: Acute Qualifiers: Acute renal failure type: unspecified Qualified Code(s): N17.9 - Acute kidney failure, unspecified Plan to address problem: Management as per nephrology. (3) Hypertensive urgency, malignant Current Visit: Yes Status: Acute Plan to address problem: Management as per primary care. (4) Intestinal obstruction Current Visit: Yes Status: Acute Plan to address problem: Management as per primary and surgery. (5) Pelvic mass in male Current Visit: Yes Status: Acute Plan to address problem: Management as per primary and urology. (6) UTI (urinary tract infection) Current Visit: Yes Status: Acute Plan to address problem: Patient is on Zosyn. (7) Pneumonia involving left lung Current Visit: Yes Status: Acute Plan to address problem: Patient is on Zosyn. Subjective Date of service: 06/10/18 Principal diagnosis: sq ca - pelvic mass Interval history: Patient alert, awake . Resting on 2 litres O2.No acute respiratory distress.O2 saturation 99% on 2 litres O2. Patient afebrile. No leukocytosis.Patients chest xray reported airspace disease left lower lobe.Patient has history of smoking in the past. He works as [employer]. Objective Vital Signs - 12hr 06/10/18 06/10/18 06/10/18 07:53 08:40 12:18 Temperature 98.1 F 98.6 F Pulse Rate 74 86 Respiratory 14 18 Rate Blood Pressure 149/93 156/101 O2 Sat by Pulse 94 100 98 Oximetry 06/10/18 06/10/18 17:18 17:39 Temperature 98.0 F Pulse Rate 70 70 Respiratory 16 Rate Blood Pressure 140/86 O2 Sat by Pulse 99 Oximetry Constitutional: no acute distress, alert, other (chronically ill looking middle aged AAM, normocephalic and atraumatic, ) Eyes: non-icteric ENT: oropharynx moist Neck: supple, no lymphadenopathy, no JVD, other (no thyromegaly) Effort: mildly labored Ascultation: Bilateral: diminished breath sounds, rhonchi (scant in bases) Percussion: Bilateral: not dull Cardiovascular: regular rate and rhythm, other (No R/M) Gastrointestinal: hypoactive bowel sounds, soft, tender (mild), other (Distended ; No palpable HSM, bilateral nephrostomy tubes,) Integumentary: other (femoral vascath) Extremities: no cyanosis, no edema, pulses normal, no ischemia or petechiae Neurologic: normal mental status, non-focal exam, pupils equal and round, other (weak) Psychiatric: mood appropriate, affect normal CBC and BMP: 06/10/18 05:26 06/10/18 05:26 ABG, PT/INR, D-dimer: ABG POC ABG pH 7.362 (7.35-7.45) 05/31/18 09:58 POC ABG pCO2 36.4 (35-45) 05/31/18 09:58 POC ABG pO2 101 (80-105) 05/31/18 09:58 POC ABG HCO3 20.7 05/31/18 09:58 POC ABG Total CO2 22 05/31/18 09:58 POC ABG O2 Sat 98 05/31/18 09:58 PT/INR, D-dimer PT 17.1 Sec. (12.2-14.9) H 06/03/18 09:18 INR 1.34 (0.87-1.13) H 06/03/18 09:18 Abnormal lab findings: Abnormal Labs 05/13/18 05/13/18 05/13/18 04:27 04:27 19:39 WBC RBC 3.13 L Hgb 9.4 L Hct 26.8 L MCHC 35 H RDW Plt Count Lymph % (Auto) [place] % (Auto) 9.6 H Lymph # [place] # Seg Neutrophils % Seg Neuts % (Manual) Lymphocytes % (Manual) Seg Neutrophils # Seg Neutrophils # Man Lymphocytes # (Manual) PT INR APTT POC ABG pH POC ABG pCO2 POC ABG pO2 Sodium 132 L Potassium 5.5 H Chloride 94.1 L Carbon Dioxide 19 L BUN 72 H Creatinine 14.4 H Glucose POC Glucose Lactic Acid Calcium Phosphorus Magnesium Iron TIBC AST ALT Alkaline Phosphatase Lactate Dehydrogenase Total Creatine Kinase C-Reactive Protein Total Protein Albumin 2.8 L Folate PTH Intact Urine WBC (Auto) Urine Creatinine 66.0 H Urine Chloride 27.8 L Urine Total Protein 24 H Fluid Glucose Fluid Total Protein Vancomycin Trough Miscellaneous Test Crossmatch 05/13/18 05/14/18 05/14/18 20:00 05:05 05:05 WBC RBC Hgb Hct MCHC RDW Plt Count Lymph % (Auto) [place] % (Auto) Lymph # [place] # Seg Neutrophils % Seg Neuts % (Manual) Lymphocytes % (Manual) Seg Neutrophils # Seg Neutrophils # Man Lymphocytes # (Manual) PT INR APTT POC ABG pH POC ABG pCO2 POC ABG pO2 Sodium 132 L 131 L Potassium 5.2 H 5.8 H Chloride 93.0 L 95.6 L Carbon Dioxide 19 L 20 L BUN 74 H 81 H Creatinine 15.0 H 16.6 H Glucose 134 H 127 H POC Glucose Lactic Acid Calcium 8.2 L 7.9 L Phosphorus 6.30 H Magnesium Iron TIBC AST ALT Alkaline Phosphatase Lactate Dehydrogenase Total Creatine Kinase 236 H C-Reactive Protein Total Protein Albumin Folate PTH Intact 65.37 H Urine WBC (Auto) Urine Creatinine Urine Chloride Urine Total Protein Fluid Glucose Fluid Total Protein Vancomycin Trough Miscellaneous Test Crossmatch 05/14/18 05/14/18 05/14/18 09:28 10:56 13:29 WBC RBC Hgb Hct MCHC RDW Plt Count Lymph % (Auto) [place] % (Auto) Lymph # [place] # Seg Neutrophils % Seg Neuts % (Manual) Lymphocytes % (Manual) Seg Neutrophils # Seg Neutrophils # Man Lymphocytes # (Manual) PT INR APTT 38.2 H POC ABG pH POC ABG pCO2 POC ABG pO2 Sodium Potassium Chloride Carbon Dioxide BUN Creatinine Glucose POC Glucose 127 H 126 H Lactic Acid Calcium Phosphorus Magnesium Iron TIBC AST ALT Alkaline Phosphatase Lactate Dehydrogenase Total Creatine Kinase C-Reactive Protein Total Protein Albumin Folate PTH Intact Urine WBC (Auto) Urine Creatinine Urine Chloride Urine Total Protein Fluid Glucose Fluid Total Protein Vancomycin Trough Miscellaneous Test Crossmatch 05/15/18 05/15/18 05/16/18 08:06 08:06 07:02 WBC RBC 2.84 L 2.74 L Hgb 8.5 L 8.5 L Hct 24.2 L 23.5 L MCHC 35 H 36 H RDW Plt Count Lymph % (Auto) [place] % (Auto) 10.4 H 11.0 H Lymph # 1.1 L [place] # 0.9 H Seg Neutrophils % 72.6 H Seg Neuts % (Manual) Lymphocytes % (Manual) Seg Neutrophils # Seg Neutrophils # Man Lymphocytes # (Manual) PT INR APTT POC ABG pH POC ABG pCO2 POC ABG pO2 Sodium Potassium Chloride Carbon Dioxide 19 L BUN 66 H Creatinine 12.0 H Glucose 115 H POC Glucose Lactic Acid Calcium 8.1 L Phosphorus Magnesium Iron TIBC AST ALT Alkaline Phosphatase Lactate Dehydrogenase Total Creatine Kinase C-Reactive Protein Total Protein Albumin Folate PTH Intact Urine WBC (Auto) Urine Creatinine Urine Chloride Urine Total Protein Fluid Glucose Fluid Total Protein Vancomycin Trough Miscellaneous Test Crossmatch 05/16/18 05/16/18 05/17/18 07:02 07:02 05:08 WBC RBC 2.78 L Hgb 8.2 L Hct 23.9 L MCHC RDW Plt Count Lymph % (Auto) [place] % (Auto) 13.9 H Lymph # [place] # 0.9 H Seg Neutrophils % Seg Neuts % (Manual) Lymphocytes % (Manual) Seg Neutrophils # Seg Neutrophils # Man Lymphocytes # (Manual) PT INR APTT POC ABG pH POC ABG pCO2 POC ABG pO2 Sodium Potassium Chloride Carbon Dioxide BUN 28 H Creatinine 2.4 H D Glucose POC Glucose Lactic Acid Calcium 8.3 L Phosphorus Magnesium 1.50 L Iron 24 L TIBC 160 L AST ALT Alkaline Phosphatase Lactate Dehydrogenase Total Creatine Kinase C-Reactive Protein Total Protein Albumin Folate 5.39 L PTH Intact Urine WBC (Auto) Urine Creatinine Urine Chloride Urine Total Protein Fluid Glucose Fluid Total Protein Vancomycin Trough Miscellaneous Test Crossmatch 05/17/18 05/18/18 05/18/18 05:08 05:57 05:57 WBC RBC 2.79 L Hgb 8.3 L Hct 24.0 L MCHC 35 H RDW Plt Count Lymph % (Auto) [place] % (Auto) 11.8 H Lymph # [place] # 0.9 H Seg Neutrophils % Seg Neuts % (Manual) Lymphocytes % (Manual) Seg Neutrophils # Seg Neutrophils # Man Lymphocytes # (Manual) PT INR APTT POC ABG pH POC ABG pCO2 POC ABG pO2 Sodium Potassium Chloride Carbon Dioxide BUN Creatinine Glucose POC Glucose Lactic Acid Calcium 7.7 L 8.0 L Phosphorus Magnesium 1.60 L Iron TIBC AST ALT Alkaline Phosphatase Lactate Dehydrogenase Total Creatine Kinase C-Reactive Protein Total Protein Albumin Folate PTH Intact Urine WBC (Auto) Urine Creatinine Urine Chloride Urine Total Protein Fluid Glucose Fluid Total Protein Vancomycin Trough Miscellaneous Test Crossmatch 05/19/18 05/19/18 05/20/18 05:33 05:33 05:38 WBC RBC 2.95 L Hgb 8.8 L Hct 25.8 L MCHC RDW Plt Count Lymph % (Auto) 10.1 L [place] % (Auto) Lymph # 1.1 L [place] # Seg Neutrophils % 85.2 H Seg Neuts % (Manual) Lymphocytes % (Manual) Seg Neutrophils # 9.0 H Seg Neutrophils # Man Lymphocytes # (Manual) PT INR APTT POC ABG pH POC ABG pCO2 POC ABG pO2 Sodium 135 L Potassium Chloride Carbon Dioxide BUN Creatinine Glucose 132 H POC Glucose Lactic Acid Calcium 7.8 L 8.3 L Phosphorus Magnesium 1.40 L Iron TIBC AST ALT Alkaline Phosphatase Lactate Dehydrogenase Total Creatine Kinase C-Reactive Protein Total Protein Albumin Folate PTH Intact Urine WBC (Auto) Urine Creatinine Urine Chloride Urine Total Protein Fluid Glucose Fluid Total Protein Vancomycin Trough Miscellaneous Test Crossmatch 05/21/18 05/21/18 05/22/18 04:46 15:30 06:49 WBC 20.0 H RBC 2.70 L Hgb 7.8 L Hct 23.3 L MCHC RDW Plt Count Lymph % (Auto) [place] % (Auto) Lymph # [place] # Seg Neutrophils % Seg Neuts % (Manual) 85.0 H Lymphocytes % (Manual) 4.0 L Seg Neutrophils # Seg Neutrophils # Man 17.0 H Lymphocytes # (Manual) 0.8 L PT INR APTT POC ABG pH POC ABG pCO2 POC ABG pO2 Sodium 135 L Potassium 3.5 L Chloride Carbon Dioxide 21 L BUN 22 H Creatinine Glucose POC Glucose Lactic Acid Calcium 8.1 L Phosphorus Magnesium Iron TIBC AST ALT Alkaline Phosphatase Lactate Dehydrogenase Total Creatine Kinase C-Reactive Protein Total Protein Albumin Folate PTH Intact Urine WBC (Auto) 28.0 H Urine Creatinine Urine Chloride Urine Total Protein Fluid Glucose Fluid Total Protein Vancomycin Trough Miscellaneous Test Crossmatch 05/22/18 05/22/18 05/23/18 06:49 11:23 09:03 WBC RBC Hgb Hct MCHC RDW Plt Count Lymph % (Auto) [place] % (Auto) Lymph # [place] # Seg Neutrophils % Seg Neuts % (Manual) Lymphocytes % (Manual) Seg Neutrophils # Seg Neutrophils # Man Lymphocytes # (Manual) PT INR APTT POC ABG pH POC ABG pCO2 POC ABG pO2 Sodium 134 L Potassium 3.5 L Chloride Carbon Dioxide 21 L BUN 35 H 36 H Creatinine 1.7 H Glucose 107 H POC Glucose Lactic Acid Calcium 7.9 L Phosphorus Magnesium 2.50 H Iron TIBC AST ALT Alkaline Phosphatase Lactate Dehydrogenase Total Creatine Kinase C-Reactive Protein Total Protein Albumin Folate PTH Intact Urine WBC (Auto) Urine Creatinine Urine Chloride Urine Total Protein Fluid Glucose Fluid Total Protein Vancomycin Trough Miscellaneous Test Crossmatch See Detail 05/23/18 05/23/18 05/23/18 09:03 09:03 17:34 WBC 26.3 H RBC 3.57 L Hgb 10.4 L Hct 31.1 L D MCHC RDW Plt Count Lymph % (Auto) [place] % (Auto) Lymph # [place] # Seg Neutrophils % Seg Neuts % (Manual) Lymphocytes % (Manual) Seg Neutrophils # Seg Neutrophils # Man Lymphocytes # (Manual) PT 18.3 H INR 1.43 H APTT 40.0 H POC ABG pH POC ABG pCO2 POC ABG pO2 Sodium Potassium Chloride Carbon Dioxide BUN Creatinine Glucose POC Glucose 108 H Lactic Acid Calcium Phosphorus Magnesium Iron TIBC AST ALT Alkaline Phosphatase Lactate Dehydrogenase Total Creatine Kinase C-Reactive Protein Total Protein Albumin Folate PTH Intact Urine WBC (Auto) Urine Creatinine Urine Chloride Urine Total Protein Fluid Glucose Fluid Total Protein Vancomycin Trough Miscellaneous Test Crossmatch 05/23/18 05/24/18 05/24/18 21:14 04:43 08:04 WBC RBC Hgb Hct MCHC RDW Plt Count Lymph % (Auto) [place] % (Auto) Lymph # [place] # Seg Neutrophils % Seg Neuts % (Manual) Lymphocytes % (Manual) Seg Neutrophils # Seg Neutrophils # Man Lymphocytes # (Manual) PT INR APTT POC ABG pH POC ABG pCO2 POC ABG pO2 Sodium 146 H Potassium Chloride 108.6 H Carbon Dioxide BUN 33 H Creatinine Glucose 109 H POC Glucose 110 H 106 H Lactic Acid Calcium 8.3 L Phosphorus Magnesium 2.50 H Iron TIBC AST ALT Alkaline Phosphatase Lactate Dehydrogenase Total Creatine Kinase C-Reactive Protein Total Protein Albumin Folate PTH Intact Urine WBC (Auto) Urine Creatinine Urine Chloride Urine Total Protein Fluid Glucose Fluid Total Protein Vancomycin Trough Miscellaneous Test Crossmatch 05/25/18 05/25/18 05/25/18 05:42 05:49 19:50 WBC RBC Hgb Hct MCHC RDW Plt Count Lymph % (Auto) [place] % (Auto) Lymph # [place] # Seg Neutrophils % Seg Neuts % (Manual) Lymphocytes % (Manual) Seg Neutrophils # Seg Neutrophils # Man Lymphocytes # (Manual) PT INR APTT POC ABG pH POC ABG pCO2 POC ABG pO2 Sodium 150 H Potassium Chloride 112.5 H Carbon Dioxide BUN 34 H Creatinine Glucose 102 H POC Glucose 107 H Lactic Acid Calcium Phosphorus Magnesium Iron TIBC AST ALT Alkaline Phosphatase Lactate Dehydrogenase Total Creatine Kinase C-Reactive Protein 34.50 H Total Protein Albumin Folate PTH Intact Urine WBC (Auto) Urine Creatinine Urine Chloride Urine Total Protein Fluid Glucose Fluid Total Protein Vancomycin Trough Miscellaneous Test Crossmatch 05/25/18 05/25/18 05/25/18 19:50 21:05 22:46 WBC RBC Hgb Hct MCHC RDW Plt Count Lymph % (Auto) [place] % (Auto) Lymph # [place] # Seg Neutrophils % Seg Neuts % (Manual) Lymphocytes % (Manual) Seg Neutrophils # Seg Neutrophils # Man Lymphocytes # (Manual) PT INR APTT POC ABG pH 7.483 H POC ABG pCO2 24.0 L POC ABG pO2 72 L Sodium Potassium Chloride Carbon Dioxide BUN Creatinine Glucose POC Glucose Lactic Acid 5.90 H* Calcium Phosphorus Magnesium Iron TIBC AST ALT Alkaline Phosphatase Lactate Dehydrogenase Total Creatine Kinase C-Reactive Protein Total Protein Albumin Folate PTH Intact Urine WBC (Auto) Urine Creatinine Urine Chloride Urine Total Protein Fluid Glucose Fluid Total Protein Vancomycin Trough 25.1 H Miscellaneous Test Crossmatch 05/25/18 05/26/18 05/26/18 22:46 00:21 00:51 WBC RBC Hgb Hct MCHC RDW Plt Count Lymph % (Auto) [place] % (Auto) Lymph # [place] # Seg Neutrophils % Seg Neuts % (Manual) Lymphocytes % (Manual) Seg Neutrophils # Seg Neutrophils # Man Lymphocytes # (Manual) PT INR APTT POC ABG pH POC ABG pCO2 POC ABG pO2 Sodium Potassium Chloride Carbon Dioxide BUN Creatinine Glucose POC Glucose 133 H Lactic Acid 8.10 H* 6.20 H* Calcium Phosphorus Magnesium Iron TIBC AST ALT Alkaline Phosphatase Lactate Dehydrogenase Total Creatine Kinase C-Reactive Protein Total Protein Albumin Folate PTH Intact Urine WBC (Auto) Urine Creatinine Urine Chloride Urine Total Protein Fluid Glucose Fluid Total Protein Vancomycin Trough Miscellaneous Test Crossmatch 05/26/18 05/26/18 05/26/18 01:13 02:24 02:24 WBC 18.7 H RBC Hgb 11.6 L Hct MCHC RDW Plt Count Lymph % (Auto) [place] % (Auto) Lymph # [place] # Seg Neutrophils % Seg Neuts % (Manual) Lymphocytes % (Manual) Seg Neutrophils # Seg Neutrophils # Man Lymphocytes # (Manual) PT INR APTT POC ABG pH POC ABG pCO2 POC ABG pO2 Sodium 147 H Potassium 6.2 H* D Chloride 111.9 H Carbon Dioxide 19 L BUN 80 H Creatinine 5.1 H D Glucose 112 H POC Glucose Lactic Acid 5.20 H* Calcium 6.7 L D Phosphorus Magnesium Iron TIBC AST ALT Alkaline Phosphatase Lactate Dehydrogenase Total Creatine Kinase C-Reactive Protein Total Protein Albumin Folate PTH Intact Urine WBC (Auto) Urine Creatinine Urine Chloride Urine Total Protein Fluid Glucose Fluid Total Protein Vancomycin Trough Miscellaneous Test Crossmatch 05/26/18 05/26/18 05/26/18 04:20 04:20 05:39 WBC RBC Hgb Hct MCHC RDW Plt Count Lymph % (Auto) [place] % (Auto) Lymph # [place] # Seg Neutrophils % Seg Neuts % (Manual) Lymphocytes % (Manual) Seg Neutrophils # Seg Neutrophils # Man Lymphocytes # (Manual) PT INR APTT POC ABG pH POC ABG pCO2 POC ABG pO2 Sodium 150 H Potassium Chloride 110.0 H Carbon Dioxide 19 L BUN 66 H Creatinine Glucose 166 H POC Glucose 187 H Lactic Acid 5.10 H* Calcium 6.9 L Phosphorus 6.70 H D Magnesium Iron TIBC AST ALT Alkaline Phosphatase Lactate Dehydrogenase Total Creatine Kinase C-Reactive Protein Total Protein Albumin Folate PTH Intact Urine WBC (Auto) Urine Creatinine Urine Chloride Urine Total Protein Fluid Glucose Fluid Total Protein Vancomycin Trough Miscellaneous Test Crossmatch 05/26/18 05/26/18 05/26/18 06:02 07:29 11:00 WBC RBC Hgb Hct MCHC RDW Plt Count Lymph % (Auto) [place] % (Auto) Lymph # [place] # Seg Neutrophils % Seg Neuts % (Manual) Lymphocytes % (Manual) Seg Neutrophils # Seg Neutrophils # Man Lymphocytes # (Manual) PT INR APTT POC ABG pH POC ABG pCO2 28.8 L POC ABG pO2 Sodium Potassium Chloride Carbon Dioxide BUN Creatinine Glucose POC Glucose Lactic Acid 4.80 H* 3.80 H* Calcium Phosphorus Magnesium Iron TIBC AST ALT Alkaline Phosphatase Lactate Dehydrogenase Total Creatine Kinase C-Reactive Protein Total Protein Albumin Folate PTH Intact Urine WBC (Auto) Urine Creatinine Urine Chloride Urine Total Protein Fluid Glucose Fluid Total Protein Vancomycin Trough Miscellaneous Test Crossmatch 05/26/18 05/26/18 05/26/18 11:01 12:28 18:00 WBC RBC Hgb Hct MCHC RDW Plt Count Lymph % (Auto) [place] % (Auto) Lymph # [place] # Seg Neutrophils % Seg Neuts % (Manual) Lymphocytes % (Manual) Seg Neutrophils # Seg Neutrophils # Man Lymphocytes # (Manual) PT INR APTT POC ABG pH POC ABG pCO2 POC ABG pO2 Sodium 150 H 151 H Potassium 5.3 H D 6.1 H* Chloride 110.3 H 117.0 H Carbon Dioxide 21 L 20 L BUN 75 H 77 H Creatinine 4.3 H D 4.6 H Glucose 161 H POC Glucose 114 H Lactic Acid Calcium 7.5 L 6.7 L Phosphorus Magnesium Iron TIBC AST 1041 H ALT 406 H Alkaline Phosphatase 281 H Lactate Dehydrogenase Total Creatine Kinase C-Reactive Protein Total Protein 4.4 L Albumin 1.3 L Folate PTH Intact Urine WBC (Auto) Urine Creatinine Urine Chloride Urine Total Protein Fluid Glucose Fluid Total Protein Vancomycin Trough Miscellaneous Test Crossmatch 05/26/18 05/26/18 05/27/18 18:02 19:17 01:01 WBC 21.7 H RBC 2.70 L Hgb 7.8 L D Hct 24.6 L D MCHC RDW 15.3 H Plt Count Lymph % (Auto) [place] % (Auto) Lymph # [place] # Seg Neutrophils % Seg Neuts % (Manual) 94.0 H Lymphocytes % (Manual) 3.0 L Seg Neutrophils # Seg Neutrophils # Man 20.4 H Lymphocytes # (Manual) 0.7 L PT INR APTT POC ABG pH 7.159 L 7.205 L POC ABG pCO2 54.5 H 53.0 H POC ABG pO2 252 H Sodium Potassium Chloride Carbon Dioxide BUN Creatinine Glucose POC Glucose Lactic Acid Calcium Phosphorus Magnesium Iron TIBC AST ALT Alkaline Phosphatase Lactate Dehydrogenase Total Creatine Kinase C-Reactive Protein Total Protein Albumin Folate PTH Intact Urine WBC (Auto) Urine Creatinine Urine Chloride Urine Total Protein Fluid Glucose Fluid Total Protein Vancomycin Trough Miscellaneous Test Crossmatch 05/27/18 05/27/18 05/27/18 05:15 05:15 06:11 WBC 24.9 H RBC 2.86 L Hgb 8.1 L Hct 25.9 L MCHC RDW 15.5 H Plt Count Lymph % (Auto) [place] % (Auto) Lymph # [place] # Seg Neutrophils % Seg Neuts % (Manual) Lymphocytes % (Manual) Seg Neutrophils # Seg Neutrophils # Man Lymphocytes # (Manual) PT INR APTT POC ABG pH 7.265 L POC ABG pCO2 46.2 H POC ABG pO2 111 H Sodium 149 H Potassium 6.9 H* Chloride 113.5 H Carbon Dioxide BUN 89 H Creatinine 5.2 H Glucose 118 H POC Glucose Lactic Acid Calcium 7.0 L Phosphorus 9.70 H D Magnesium Iron TIBC AST 876 H ALT 408 H Alkaline Phosphatase Lactate Dehydrogenase Total Creatine Kinase C-Reactive Protein Total Protein 5.2 L Albumin 1.5 L Folate PTH Intact Urine WBC (Auto) Urine Creatinine Urine Chloride Urine Total Protein Fluid Glucose Fluid Total Protein Vancomycin Trough Miscellaneous Test Crossmatch 05/27/18 05/27/18 05/27/18 08:48 10:22 10:22 WBC RBC Hgb Hct MCHC RDW Plt Count Lymph % (Auto) [place] % (Auto) Lymph # [place] # Seg Neutrophils % Seg Neuts % (Manual) Lymphocytes % (Manual) Seg Neutrophils # Seg Neutrophils # Man Lymphocytes # (Manual) PT INR APTT POC ABG pH POC ABG pCO2 POC ABG pO2 Sodium 146 H Potassium 6.1 H* Chloride 108.2 H Carbon Dioxide 21 L BUN 88 H Creatinine 5.6 H Glucose 163 H POC Glucose 164 H Lactic Acid Calcium 6.7 L Phosphorus Magnesium Iron TIBC AST ALT Alkaline Phosphatase Lactate Dehydrogenase Total Creatine Kinase C-Reactive Protein 40.70 H Total Protein Albumin Folate PTH Intact Urine WBC (Auto) Urine Creatinine Urine Chloride Urine Total Protein Fluid Glucose Fluid Total Protein Vancomycin Trough Miscellaneous Test Crossmatch 05/27/18 05/27/18 05/27/18 13:02 17:39 23:27 WBC RBC Hgb Hct MCHC RDW Plt Count Lymph % (Auto) [place] % (Auto) Lymph # [place] # Seg Neutrophils % Seg Neuts % (Manual) Lymphocytes % (Manual) Seg Neutrophils # Seg Neutrophils # Man Lymphocytes # (Manual) PT INR APTT POC ABG pH POC ABG pCO2 POC ABG pO2 Sodium Potassium Chloride Carbon Dioxide BUN Creatinine Glucose POC Glucose 59 L 132 H Lactic Acid Calcium Phosphorus Magnesium Iron TIBC AST ALT Alkaline Phosphatase Lactate Dehydrogenase Total Creatine Kinase C-Reactive Protein Total Protein Albumin Folate PTH Intact Urine WBC (Auto) Urine Creatinine Urine Chloride Urine Total Protein Fluid Glucose Fluid Total Protein Vancomycin Trough Miscellaneous Test Flexitest 1 H Crossmatch 05/27/18 05/28/18 05/28/18 Unknown 04:32 05:00 WBC RBC Hgb Hct MCHC RDW Plt Count Lymph % (Auto) [place] % (Auto) Lymph # [place] # Seg Neutrophils % Seg Neuts % (Manual) Lymphocytes % (Manual) Seg Neutrophils # Seg Neutrophils # Man Lymphocytes # (Manual) PT INR APTT POC ABG pH POC ABG pCO2 POC ABG pO2 134 H Sodium Potassium Chloride Carbon Dioxide BUN 69 H Creatinine 4.4 H Glucose 118 H POC Glucose Lactic Acid Calcium 8.0 L D Phosphorus 6.80 H D Magnesium Iron TIBC AST ALT Alkaline Phosphatase Lactate Dehydrogenase Total Creatine Kinase C-Reactive Protein Total Protein Albumin Folate PTH Intact Urine WBC (Auto) 120.0 H Urine Creatinine Urine Chloride Urine Total Protein Fluid Glucose Fluid Total Protein Vancomycin Trough Miscellaneous Test Crossmatch 05/28/18 05/28/18 05/28/18 05:00 05:27 13:04 WBC 26.5 H RBC 2.69 L Hgb 7.7 L Hct 23.6 L MCHC RDW Plt Count Lymph % (Auto) [place] % (Auto) Lymph # [place] # Seg Neutrophils % Seg Neuts % (Manual) 96.0 H Lymphocytes % (Manual) 0 L Seg Neutrophils # Seg Neutrophils # Man 25.4 H Lymphocytes # (Manual) 0.0 L PT INR APTT POC ABG pH POC ABG pCO2 POC ABG pO2 Sodium Potassium Chloride Carbon Dioxide BUN Creatinine Glucose POC Glucose 128 H 155 H Lactic Acid Calcium Phosphorus Magnesium Iron TIBC AST ALT Alkaline Phosphatase Lactate Dehydrogenase Total Creatine Kinase C-Reactive Protein Total Protein Albumin Folate PTH Intact Urine WBC (Auto) Urine Creatinine Urine Chloride Urine Total Protein Fluid Glucose Fluid Total Protein Vancomycin Trough Miscellaneous Test Crossmatch 05/28/18 05/29/18 05/29/18 17:56 03:35 04:00 WBC RBC Hgb Hct MCHC RDW Plt Count Lymph % (Auto) [place] % (Auto) Lymph # [place] # Seg Neutrophils % Seg Neuts % (Manual) Lymphocytes % (Manual) Seg Neutrophils # Seg Neutrophils # Man Lymphocytes # (Manual) PT INR APTT POC ABG pH 7.471 H POC ABG pCO2 POC ABG pO2 78 L Sodium Potassium Chloride Carbon Dioxide BUN 50 H Creatinine 3.9 H Glucose POC Glucose 110 H Lactic Acid Calcium 7.7 L Phosphorus Magnesium 1.50 L Iron TIBC AST 218 H ALT 204 H Alkaline Phosphatase Lactate Dehydrogenase Total Creatine Kinase C-Reactive Protein Total Protein 5.4 L Albumin 1.6 L Folate PTH Intact Urine WBC (Auto) Urine Creatinine Urine Chloride Urine Total Protein Fluid Glucose Fluid Total Protein Vancomycin Trough Miscellaneous Test Crossmatch 05/29/18 05/29/18 05/30/18 11:51 23:56 04:54 WBC RBC Hgb Hct MCHC RDW Plt Count Lymph % (Auto) [place] % (Auto) Lymph # [place] # Seg Neutrophils % Seg Neuts % (Manual) Lymphocytes % (Manual) Seg Neutrophils # Seg Neutrophils # Man Lymphocytes # (Manual) PT INR APTT POC ABG pH POC ABG pCO2 POC ABG pO2 Sodium Potassium Chloride Carbon Dioxide BUN Creatinine Glucose POC Glucose 131 H 119 H 115 H Lactic Acid Calcium Phosphorus Magnesium Iron TIBC AST ALT Alkaline Phosphatase Lactate Dehydrogenase Total Creatine Kinase C-Reactive Protein Total Protein Albumin Folate PTH Intact Urine WBC (Auto) Urine Creatinine Urine Chloride Urine Total Protein Fluid Glucose Fluid Total Protein Vancomycin Trough Miscellaneous Test Crossmatch 05/30/18 05/30/18 05/30/18 05:07 05:15 05:15 WBC 16.2 H RBC 2.53 L Hgb 7.4 L Hct 21.9 L MCHC RDW Plt Count Lymph % (Auto) [place] % (Auto) Lymph # [place] # Seg Neutrophils % Seg Neuts % (Manual) Lymphocytes % (Manual) Seg Neutrophils # Seg Neutrophils # Man Lymphocytes # (Manual) PT INR APTT POC ABG pH POC ABG pCO2 34.5 L POC ABG pO2 133 H Sodium 135 L Potassium Chloride 97.5 L Carbon Dioxide BUN 69 H Creatinine 5.4 H Glucose 105 H POC Glucose Lactic Acid Calcium 7.5 L Phosphorus 5.30 H D Magnesium Iron TIBC AST ALT Alkaline Phosphatase Lactate Dehydrogenase Total Creatine Kinase C-Reactive Protein Total Protein Albumin Folate PTH Intact Urine WBC (Auto) Urine Creatinine Urine Chloride Urine Total Protein Fluid Glucose Fluid Total Protein Vancomycin Trough Miscellaneous Test Crossmatch 05/30/18 05/30/18 05/31/18 12:13 17:10 04:50 WBC 18.7 H RBC 2.86 L Hgb 8.2 L Hct 24.8 L MCHC RDW Plt Count Lymph % (Auto) [place] % (Auto) Lymph # [place] # Seg Neutrophils % Seg Neuts % (Manual) 91.0 H Lymphocytes % (Manual) 2.0 L Seg Neutrophils # Seg Neutrophils # Man 17.0 H Lymphocytes # (Manual) 0.4 L PT INR APTT POC ABG pH POC ABG pCO2 POC ABG pO2 Sodium Potassium Chloride Carbon Dioxide BUN Creatinine Glucose POC Glucose 132 H 122 H Lactic Acid Calcium Phosphorus Magnesium Iron TIBC AST ALT Alkaline Phosphatase Lactate Dehydrogenase Total Creatine Kinase C-Reactive Protein Total Protein Albumin Folate PTH Intact Urine WBC (Auto) Urine Creatinine Urine Chloride Urine Total Protein Fluid Glucose Fluid Total Protein Vancomycin Trough Miscellaneous Test Crossmatch 05/31/18 05/31/18 05/31/18 04:50 05:45 11:37 WBC RBC Hgb Hct MCHC RDW Plt Count Lymph % (Auto) [place] % (Auto) Lymph # [place] # Seg Neutrophils % Seg Neuts % (Manual) Lymphocytes % (Manual) Seg Neutrophils # Seg Neutrophils # Man Lymphocytes # (Manual) PT INR APTT POC ABG pH POC ABG pCO2 POC ABG pO2 Sodium 132 L Potassium Chloride 92.4 L Carbon Dioxide BUN 77 H Creatinine 5.9 H Glucose POC Glucose 111 H 136 H Lactic Acid Calcium 7.3 L Phosphorus 6.40 H D Magnesium Iron TIBC AST ALT Alkaline Phosphatase Lactate Dehydrogenase Total Creatine Kinase C-Reactive Protein Total Protein Albumin Folate PTH Intact Urine WBC (Auto) Urine Creatinine Urine Chloride Urine Total Protein Fluid Glucose Fluid Total Protein Vancomycin Trough Miscellaneous Test Crossmatch 05/31/18 06/01/18 06/01/18 17:52 00:09 04:00 WBC RBC Hgb Hct MCHC RDW Plt Count Lymph % (Auto) [place] % (Auto) Lymph # [place] # Seg Neutrophils % Seg Neuts % (Manual) Lymphocytes % (Manual) Seg Neutrophils # Seg Neutrophils # Man Lymphocytes # (Manual) PT INR APTT POC ABG pH POC ABG pCO2 POC ABG pO2 Sodium Potassium Chloride 97.5 L Carbon Dioxide BUN 49 H Creatinine 4.2 H Glucose 104 H POC Glucose 115 H 114 H Lactic Acid Calcium 7.3 L Phosphorus 4.70 H D Magnesium Iron TIBC AST ALT Alkaline Phosphatase Lactate Dehydrogenase Total Creatine Kinase C-Reactive Protein Total Protein Albumin Folate PTH Intact Urine WBC (Auto) Urine Creatinine Urine Chloride Urine Total Protein Fluid Glucose Fluid Total Protein Vancomycin Trough Miscellaneous Test Crossmatch 06/01/18 06/01/18 06/02/18 11:10 17:56 00:15 WBC RBC Hgb Hct MCHC RDW Plt Count Lymph % (Auto) [place] % (Auto) Lymph # [place] # Seg Neutrophils % Seg Neuts % (Manual) Lymphocytes % (Manual) Seg Neutrophils # Seg Neutrophils # Man Lymphocytes # (Manual) PT INR APTT POC ABG pH POC ABG pCO2 POC ABG pO2 Sodium Potassium Chloride Carbon Dioxide BUN Creatinine Glucose POC Glucose 123 H 126 H 135 H Lactic Acid Calcium Phosphorus Magnesium Iron TIBC AST ALT Alkaline Phosphatase Lactate Dehydrogenase Total Creatine Kinase C-Reactive Protein Total Protein Albumin Folate PTH Intact Urine WBC (Auto) Urine Creatinine Urine Chloride Urine Total Protein Fluid Glucose Fluid Total Protein Vancomycin Trough Miscellaneous Test Crossmatch 06/02/18 06/02/18 06/02/18 05:23 12:42 13:05 WBC RBC Hgb Hct MCHC RDW Plt Count Lymph % (Auto) [place] % (Auto) Lymph # [place] # Seg Neutrophils % Seg Neuts % (Manual) Lymphocytes % (Manual) Seg Neutrophils # Seg Neutrophils # Man Lymphocytes # (Manual) PT 17.1 H INR 1.34 H APTT POC ABG pH POC ABG pCO2 POC ABG pO2 Sodium Potassium Chloride Carbon Dioxide BUN Creatinine Glucose POC Glucose 135 H 142 H Lactic Acid Calcium Phosphorus Magnesium Iron TIBC AST ALT Alkaline Phosphatase Lactate Dehydrogenase Total Creatine Kinase C-Reactive Protein Total Protein Albumin Folate PTH Intact Urine WBC (Auto) Urine Creatinine Urine Chloride Urine Total Protein Fluid Glucose Fluid Total Protein Vancomycin Trough Miscellaneous Test Crossmatch 06/02/18 06/02/18 06/03/18 Unknown Unknown 00:54 WBC 20.8 H RBC 2.67 L Hgb 7.7 L Hct 23.0 L MCHC RDW Plt Count 500 H Lymph % (Auto) [place] % (Auto) Lymph # [place] # Seg Neutrophils % Seg Neuts % (Manual) Lymphocytes % (Manual) Seg Neutrophils # Seg Neutrophils # Man Lymphocytes # (Manual) PT INR APTT POC ABG pH POC ABG pCO2 POC ABG pO2 Sodium 136 L Potassium 3.5 L Chloride 96.9 L Carbon Dioxide BUN 62 H Creatinine 4.9 H Glucose 133 H POC Glucose 125 H Lactic Acid Calcium 7.2 L Phosphorus 5.00 H Magnesium Iron TIBC AST 46 H ALT 66 H Alkaline Phosphatase Lactate Dehydrogenase Total Creatine Kinase C-Reactive Protein Total Protein 5.7 L Albumin 1.5 L Folate PTH Intact Urine WBC (Auto) Urine Creatinine Urine Chloride Urine Total Protein Fluid Glucose Fluid Total Protein Vancomycin Trough Miscellaneous Test Crossmatch 06/03/18 06/03/18 06/03/18 03:31 09:18 09:18 WBC RBC Hgb Hct MCHC RDW Plt Count Lymph % (Auto) [place] % (Auto) Lymph # [place] # Seg Neutrophils % Seg Neuts % (Manual) Lymphocytes % (Manual) Seg Neutrophils # Seg Neutrophils # Man Lymphocytes # (Manual) PT 17.1 H INR 1.34 H APTT POC ABG pH POC ABG pCO2 POC ABG pO2 Sodium 136 L Potassium Chloride Carbon Dioxide BUN 41 H Creatinine 3.4 H Glucose 129 H POC Glucose Lactic Acid Calcium 7.4 L Phosphorus Magnesium Iron TIBC AST ALT Alkaline Phosphatase Lactate Dehydrogenase Total Creatine Kinase C-Reactive Protein 11.10 H Total Protein Albumin Folate PTH Intact Urine WBC (Auto) Urine Creatinine Urine Chloride Urine Total Protein Fluid Glucose Fluid Total Protein Vancomycin Trough Miscellaneous Test Crossmatch 06/03/18 06/03/18 06/03/18 16:07 21:18 Unknown WBC RBC Hgb Hct MCHC RDW Plt Count Lymph % (Auto) [place] % (Auto) Lymph # [place] # Seg Neutrophils % Seg Neuts % (Manual) Lymphocytes % (Manual) Seg Neutrophils # Seg Neutrophils # Man Lymphocytes # (Manual) PT INR APTT POC ABG pH POC ABG pCO2 POC ABG pO2 Sodium Potassium Chloride Carbon Dioxide BUN Creatinine Glucose POC Glucose 144 H 128 H Lactic Acid Calcium Phosphorus Magnesium Iron TIBC AST ALT Alkaline Phosphatase Lactate Dehydrogenase Total Creatine Kinase C-Reactive Protein Total Protein Albumin Folate PTH Intact Urine WBC (Auto) Urine Creatinine Urine Chloride Urine Total Protein Fluid Glucose 10 L Fluid Total Protein 3.7 L Vancomycin Trough Miscellaneous Test Crossmatch 06/04/18 06/04/18 06/04/18 04:31 06:14 11:38 WBC RBC Hgb Hct MCHC RDW Plt Count Lymph % (Auto) [place] % (Auto) Lymph # [place] # Seg Neutrophils % Seg Neuts % (Manual) Lymphocytes % (Manual) Seg Neutrophils # Seg Neutrophils # Man Lymphocytes # (Manual) PT INR APTT POC ABG pH POC ABG pCO2 POC ABG pO2 Sodium Potassium Chloride Carbon Dioxide BUN 55 H Creatinine 3.7 H Glucose 151 H POC Glucose 145 H 129 H Lactic Acid Calcium 7.8 L Phosphorus 4.60 H Magnesium Iron TIBC AST ALT Alkaline Phosphatase Lactate Dehydrogenase Total Creatine Kinase C-Reactive Protein Total Protein Albumin Folate PTH Intact Urine WBC (Auto) Urine Creatinine Urine Chloride Urine Total Protein Fluid Glucose Fluid Total Protein Vancomycin Trough Miscellaneous Test Crossmatch 06/04/18 06/04/18 06/04/18 17:09 20:00 21:29 WBC RBC Hgb 8.8 L Hct 27.3 L MCHC RDW Plt Count Lymph % (Auto) [place] % (Auto) Lymph # [place] # Seg Neutrophils % Seg Neuts % (Manual) Lymphocytes % (Manual) Seg Neutrophils # Seg Neutrophils # Man Lymphocytes # (Manual) PT INR APTT POC ABG pH POC ABG pCO2 POC ABG pO2 Sodium Potassium Chloride Carbon Dioxide BUN Creatinine Glucose POC Glucose 142 H 130 H Lactic Acid Calcium Phosphorus Magnesium Iron TIBC AST ALT Alkaline Phosphatase Lactate Dehydrogenase Total Creatine Kinase C-Reactive Protein Total Protein Albumin Folate PTH Intact Urine WBC (Auto) Urine Creatinine Urine Chloride Urine Total Protein Fluid Glucose Fluid Total Protein Vancomycin Trough Miscellaneous Test Crossmatch 06/05/18 06/05/18 06/05/18 06:30 07:00 07:00 WBC 19.3 H RBC 2.94 L Hgb 8.3 L Hct 25.6 L MCHC RDW 15.7 H Plt Count 568 H Lymph % (Auto) 4.7 L [place] % (Auto) Lymph # 0.9 L [place] # 1.1 H Seg Neutrophils % 88.9 H Seg Neuts % (Manual) Lymphocytes % (Manual) Seg Neutrophils # 17.2 H Seg Neutrophils # Man Lymphocytes # (Manual) PT INR APTT POC ABG pH POC ABG pCO2 POC ABG pO2 Sodium Potassium 3.4 L D Chloride Carbon Dioxide BUN 67 H Creatinine 3.6 H Glucose 145 H POC Glucose 153 H Lactic Acid Calcium 7.9 L Phosphorus 4.60 H Magnesium Iron TIBC AST ALT Alkaline Phosphatase Lactate Dehydrogenase Total Creatine Kinase C-Reactive Protein Total Protein Albumin Folate PTH Intact Urine WBC (Auto) Urine Creatinine Urine Chloride Urine Total Protein Fluid Glucose Fluid Total Protein Vancomycin Trough Miscellaneous Test Crossmatch 06/05/18 06/05/18 06/06/18 12:10 16:01 06:39 WBC RBC Hgb Hct MCHC RDW Plt Count Lymph % (Auto) [place] % (Auto) Lymph # [place] # Seg Neutrophils % Seg Neuts % (Manual) Lymphocytes % (Manual) Seg Neutrophils # Seg Neutrophils # Man Lymphocytes # (Manual) PT INR APTT POC ABG pH POC ABG pCO2 POC ABG pO2 Sodium Potassium Chloride Carbon Dioxide BUN Creatinine Glucose POC Glucose 150 H 129 H 131 H Lactic Acid Calcium Phosphorus Magnesium Iron TIBC AST ALT Alkaline Phosphatase Lactate Dehydrogenase Total Creatine Kinase C-Reactive Protein Total Protein Albumin Folate PTH Intact Urine WBC (Auto) Urine Creatinine Urine Chloride Urine Total Protein Fluid Glucose Fluid Total Protein Vancomycin Trough Miscellaneous Test Crossmatch 06/06/18 06/06/18 06/06/18 07:14 07:14 07:14 WBC 16.5 H RBC 2.84 L Hgb 8.1 L Hct 25.2 L MCHC RDW 16.4 H Plt Count 526 H Lymph % (Auto) 6.5 L [place] % (Auto) Lymph # 1.1 L [place] # 1.2 H Seg Neutrophils % 85.3 H Seg Neuts % (Manual) Lymphocytes % (Manual) Seg Neutrophils # 14.1 H Seg Neutrophils # Man Lymphocytes # (Manual) PT INR APTT POC ABG pH POC ABG pCO2 POC ABG pO2 Sodium Potassium Chloride 109.1 H Carbon Dioxide 21 L BUN 76 H Creatinine 3.5 H Glucose 111 H POC Glucose Lactic Acid Calcium 8.1 L Phosphorus Magnesium Iron TIBC AST ALT Alkaline Phosphatase Lactate Dehydrogenase Total Creatine Kinase C-Reactive Protein 4.70 H Total Protein Albumin Folate PTH Intact Urine WBC (Auto) Urine Creatinine Urine Chloride Urine Total Protein Fluid Glucose Fluid Total Protein Vancomycin Trough Miscellaneous Test Crossmatch 06/06/18 06/06/18 06/06/18 11:15 18:00 23:58 WBC RBC Hgb Hct MCHC RDW Plt Count Lymph % (Auto) [place] % (Auto) Lymph # [place] # Seg Neutrophils % Seg Neuts % (Manual) Lymphocytes % (Manual) Seg Neutrophils # Seg Neutrophils # Man Lymphocytes # (Manual) PT INR APTT POC ABG pH POC ABG pCO2 POC ABG pO2 Sodium Potassium Chloride Carbon Dioxide BUN Creatinine Glucose POC Glucose 127 H 130 H 114 H Lactic Acid Calcium Phosphorus Magnesium Iron TIBC AST ALT Alkaline Phosphatase Lactate Dehydrogenase Total Creatine Kinase C-Reactive Protein Total Protein Albumin Folate PTH Intact Urine WBC (Auto) Urine Creatinine Urine Chloride Urine Total Protein Fluid Glucose Fluid Total Protein Vancomycin Trough Miscellaneous Test Crossmatch 06/07/18 06/07/18 06/07/18 05:45 05:45 05:54 WBC 15.5 H RBC 2.60 L Hgb 7.4 L Hct 23.1 L MCHC RDW 16.5 H Plt Count 506 H Lymph % (Auto) 5.3 L [place] % (Auto) Lymph # 0.8 L [place] # 1.0 H Seg Neutrophils % 86.6 H Seg Neuts % (Manual) Lymphocytes % (Manual) Seg Neutrophils # 13.4 H Seg Neutrophils # Man Lymphocytes # (Manual) PT INR APTT POC ABG pH POC ABG pCO2 POC ABG pO2 Sodium Potassium Chloride 108.4 H Carbon Dioxide BUN 84 H Creatinine 3.5 H Glucose 119 H POC Glucose 114 H Lactic Acid Calcium 8.1 L Phosphorus 5.10 H Magnesium Iron TIBC AST ALT Alkaline Phosphatase Lactate Dehydrogenase Total Creatine Kinase C-Reactive Protein Total Protein Albumin Folate PTH Intact Urine WBC (Auto) Urine Creatinine Urine Chloride Urine Total Protein Fluid Glucose Fluid Total Protein Vancomycin Trough Miscellaneous Test Crossmatch 06/07/18 06/08/18 06/08/18 12:15 05:05 05:24 WBC RBC Hgb Hct MCHC RDW Plt Count Lymph % (Auto) [place] % (Auto) Lymph # [place] # Seg Neutrophils % Seg Neuts % (Manual) Lymphocytes % (Manual) Seg Neutrophils # Seg Neutrophils # Man Lymphocytes # (Manual) PT INR APTT POC ABG pH POC ABG pCO2 POC ABG pO2 Sodium 148 H Potassium Chloride 112.4 H Carbon Dioxide BUN 89 H Creatinine 3.4 H Glucose 120 H POC Glucose 148 H 115 H Lactic Acid Calcium 7.9 L Phosphorus Magnesium Iron TIBC AST ALT Alkaline Phosphatase Lactate Dehydrogenase Total Creatine Kinase C-Reactive Protein Total Protein Albumin Folate PTH Intact Urine WBC (Auto) Urine Creatinine Urine Chloride Urine Total Protein Fluid Glucose Fluid Total Protein Vancomycin Trough Miscellaneous Test Crossmatch 06/08/18 06/08/18 06/09/18 21:36 21:43 00:05 WBC RBC 2.98 L Hgb 8.8 L Hct 26.6 L MCHC RDW 16.7 H Plt Count 463 H Lymph % (Auto) 7.9 L [place] % (Auto) Lymph # 0.8 L [place] # Seg Neutrophils % 84.8 H Seg Neuts % (Manual) Lymphocytes % (Manual) Seg Neutrophils # 8.6 H Seg Neutrophils # Man Lymphocytes # (Manual) PT INR APTT POC ABG pH POC ABG pCO2 POC ABG pO2 Sodium Potassium Chloride Carbon Dioxide BUN Creatinine Glucose POC Glucose 140 H Lactic Acid Calcium Phosphorus Magnesium Iron TIBC AST ALT Alkaline Phosphatase Lactate Dehydrogenase 297 H Total Creatine Kinase C-Reactive Protein Total Protein Albumin Folate PTH Intact Urine WBC (Auto) Urine Creatinine Urine Chloride Urine Total Protein Fluid Glucose Fluid Total Protein Vancomycin Trough Miscellaneous Test Crossmatch 06/09/18 06/09/18 06/09/18 05:34 05:50 05:50 WBC RBC 2.32 L Hgb 6.8 L Hct 20.7 L MCHC RDW 16.7 H Plt Count Lymph % (Auto) [place] % (Auto) Lymph # [place] # Seg Neutrophils % Seg Neuts % (Manual) Lymphocytes % (Manual) Seg Neutrophils # Seg Neutrophils # Man Lymphocytes # (Manual) PT INR APTT POC ABG pH POC ABG pCO2 POC ABG pO2 Sodium 153 H Potassium Chloride 117.3 H Carbon Dioxide BUN 84 H Creatinine 3.2 H Glucose 117 H POC Glucose 146 H Lactic Acid Calcium 7.9 L Phosphorus Magnesium Iron TIBC AST ALT Alkaline Phosphatase Lactate Dehydrogenase Total Creatine Kinase C-Reactive Protein Total Protein Albumin Folate PTH Intact Urine WBC (Auto) Urine Creatinine Urine Chloride Urine Total Protein Fluid Glucose Fluid Total Protein Vancomycin Trough Miscellaneous Test Crossmatch 06/09/18 06/09/18 06/09/18 10:34 10:41 11:56 WBC RBC 2.43 L Hgb 7.2 L Hct 21.6 L MCHC RDW 16.8 H Plt Count Lymph % (Auto) [place] % (Auto) Lymph # [place] # Seg Neutrophils % Seg Neuts % (Manual) Lymphocytes % (Manual) Seg Neutrophils # Seg Neutrophils # Man Lymphocytes # (Manual) PT INR APTT POC ABG pH POC ABG pCO2 POC ABG pO2 Sodium 149 H Potassium Chloride 114.6 H Carbon Dioxide BUN 84 H Creatinine 3.1 H Glucose 137 H POC Glucose 141 H Lactic Acid Calcium 7.7 L Phosphorus Magnesium Iron TIBC AST ALT Alkaline Phosphatase Lactate Dehydrogenase Total Creatine Kinase C-Reactive Protein Total Protein Albumin Folate PTH Intact Urine WBC (Auto) Urine Creatinine Urine Chloride Urine Total Protein Fluid Glucose Fluid Total Protein Vancomycin Trough Miscellaneous Test Crossmatch 06/09/18 06/09/18 06/09/18 13:24 18:18 23:13 WBC RBC Hgb Hct MCHC RDW Plt Count Lymph % (Auto) [place] % (Auto) Lymph # [place] # Seg Neutrophils % Seg Neuts % (Manual) Lymphocytes % (Manual) Seg Neutrophils # Seg Neutrophils # Man Lymphocytes # (Manual) PT INR APTT POC ABG pH POC ABG pCO2 POC ABG pO2 Sodium Potassium Chloride Carbon Dioxide BUN Creatinine Glucose POC Glucose 156 H 163 H Lactic Acid Calcium Phosphorus Magnesium Iron TIBC AST ALT Alkaline Phosphatase Lactate Dehydrogenase Total Creatine Kinase C-Reactive Protein Total Protein Albumin Folate PTH Intact Urine WBC (Auto) Urine Creatinine Urine Chloride Urine Total Protein Fluid Glucose Fluid Total Protein Vancomycin Trough Miscellaneous Test Crossmatch See Detail 06/10/18 06/10/18 06/10/18 05:26 05:26 05:31 WBC 11.1 H RBC 3.07 L Hgb 9.1 L Hct 27.6 L D MCHC RDW 17.4 H Plt Count Lymph % (Auto) [place] % (Auto) Lymph # [place] # Seg Neutrophils % Seg Neuts % (Manual) Lymphocytes % (Manual) Seg Neutrophils # Seg Neutrophils # Man Lymphocytes # (Manual) PT INR APTT POC ABG pH POC ABG pCO2 POC ABG pO2 Sodium 148 H Potassium Chloride 114.7 H Carbon Dioxide 21 L BUN 79 H Creatinine 3.2 H Glucose 121 H POC Glucose 128 H Lactic Acid Calcium 7.8 L Phosphorus Magnesium 1.60 L Iron TIBC AST ALT Alkaline Phosphatase Lactate Dehydrogenase Total Creatine Kinase C-Reactive Protein Total Protein Albumin Folate PTH Intact Urine WBC (Auto) Urine Creatinine Urine Chloride Urine Total Protein Fluid Glucose Fluid Total Protein Vancomycin Trough Miscellaneous Test Crossmatch 06/10/18 17:15 WBC RBC Hgb Hct MCHC RDW Plt Count Lymph % (Auto) [place] % (Auto) Lymph # [place] # Seg Neutrophils % Seg Neuts % (Manual) Lymphocytes % (Manual) Seg Neutrophils # Seg Neutrophils # Man Lymphocytes # (Manual) PT INR APTT POC ABG pH POC ABG pCO2 POC ABG pO2 Sodium Potassium Chloride Carbon Dioxide BUN Creatinine Glucose POC Glucose Lactic Acid Calcium Phosphorus Magnesium Iron TIBC AST ALT Alkaline Phosphatase Lactate Dehydrogenase Total Creatine Kinase C-Reactive Protein 3.60 H Total Protein Albumin Folate PTH Intact Urine WBC (Auto) Urine Creatinine Urine Chloride Urine Total Protein Fluid Glucose Fluid Total Protein Vancomycin Trough Miscellaneous Test Crossmatch Chest x-ray: report reviewed (Bilateral pleural effusions,bibasilar atelectatic changes.Stable cardiomegaly.), image reviewed Allied health notes reviewed: nursing
[2018-06-10] MEDS ORDERED: TPN ADULT 2,016 ML IV SCH (20:00)
[2018-06-10] MEDS ORDERED: INTRALIPID 20% 250 ML IV SCH (20:00)
--- NOTE | 2018-06-10 20:01 | Progress Note ---
Assessment and Plan - Patient Problems (1) Acute renal failure Current Visit: Yes Status: Acute Qualifiers: Acute renal failure type: unspecified Qualified Code(s): N17.9 - Acute kidney failure, unspecified Plan to address problem: Follow renal service. (2) Edema Current Visit: Yes Status: Acute Qualifiers: Edema type: unspecified Qualified Code(s): R60.9 - Edema, unspecified Plan to address problem: Due in part to overall tumor burden., and may be poor protien. (3) Pelvic mass in male Current Visit: Yes Status: Acute Plan to address problem: consistent with SQ cell histology, REC remains the same. see notes. (4) Sepsis Current Visit: Yes Status: Acute Plan to address problem: treat underlying issues. Follow ID rec. Subjective Date of service: 06/10/18 Principal diagnosis: sq ca - pelvic mass Interval history: I am covering DR Oates/PM group.Patient seen, resting in bed, records reviewed, cbc fair. Prostate bx with Squamous histology. REC remains the same until any further conclusive results.Treat other co morbid issues.WBC19.3, H/h8.3/25, [id number]. Covering DR Plunkett. Patient seen,resting in bed, records reviewed. Hgb dropped by o.2 very insignificant. Sill covering DR Plunkett, patient seen, resting in bed, nothing new.records reviewed. Covering DR Plunkett. Patient seen/examined, records reviewed, case d/w patient at the bed side.Will do another lab, speak with Pathology tomorrow. Family meeting set for tomorrow. Patient seen/examined, records reviewed, case d/w patient ,and the sister at the bed side. There was also a family meeting held this am with the Family, was extensive covering all the events sofar, and plans moving forward, including time line for possible management of his cancer.Will continue to follow, and be avalable untill DR Plunkett comes back on wednesday.The family was satisfied, and expressed so.I have also seen, and spoken to DR Cantu the surgeon, who indicated , patient will be started on clear liquid, and advance as tolerable.Will recheck cbc for tomorrow, and if HGB 7 or less, or if sxs of anemia, will proceed with PRBC replacement. patient seen, resting in bed, labs reviewed, and stable.i have spoken to the primary team.Awaiting LTAC placement. DR Plunkett will be back tomorrow. Objective - Constitutional Vitals: Vital Signs - 12hr 06/10/18 06/10/18 06/10/18 08:40 12:18 17:18 Temperature 98.6 F 98.0 F Pulse Rate 86 70 Respiratory 18 16 Rate Blood Pressure 156/101 140/86 O2 Sat by Pulse 100 98 99 Oximetry 06/10/18 17:39 Temperature Pulse Rate 70 Respiratory Rate Blood Pressure O2 Sat by Pulse Oximetry - EENT Eyes: PERRL, EOM intact ENT: hearing intact, clear oral mucosa Ears: bilateral: normal - Neck Neck: supple, normal ROM - Respiratory Respiratory: bilateral: rhonchi - Breasts Breasts: deferred - Cardiovascular Rhythm: regular Heart Sounds: Present: S1 & S2. Absent: gallop, rub Extremities: pulses intact, No edema, normal color, Full ROM - Gastrointestinal General gastrointestinal: Present: soft, non-tender, non-distended, normal bowel sounds Rectal Exam: deferred - Genitourinary Male genitourinary: deferred - Integumentary Integumentary: clear, warm, dry - Musculoskeletal Musculoskeletal: 1, strength equal bilaterally - Neurologic Neurologic: moves all extremities - Psychiatric Psychiatric: memory intact, appropriate mood/affect, intact judgment & insight - Labs CBC & Chem 7: 06/10/18 05:26 06/10/18 05:26 Labs: Abnormal lab results 06/09/18 06/09/18 06/10/18 Range/Units 13:24 23:13 05:26 WBC (4.5-11.0) K/mm3 RBC (3.65-5.03) M/mm3 Hgb (11.8-15.2) gm/dl Hct (35.5-45.6) % RDW (13.2-15.2) % Sodium 148 H (137-145) mmol/L Chloride 114.7 H (98-107) mmol/L Carbon Dioxide 21 L (22-30) mmol/L BUN 79 H (9-20) mg/dL Creatinine 3.2 H (0.8-1.5) mg/dL Glucose 121 H (75-100) mg/dL POC Glucose 163 H (70-105) Calcium 7.8 L (8.4-10.2) mg/dL Magnesium 1.60 L (1.7-2.3) mg/dL C-Reactive Protein (0.00-1.30) mg/dL Crossmatch See Detail 06/10/18 06/10/18 06/10/18 Range/Units 05:26 05:31 17:15 WBC 11.1 H (4.5-11.0) K/mm3 RBC 3.07 L (3.65-5.03) M/mm3 Hgb 9.1 L (11.8-15.2) gm/dl Hct 27.6 L D (35.5-45.6) % RDW 17.4 H (13.2-15.2) % Sodium (137-145) mmol/L Chloride (98-107) mmol/L Carbon Dioxide (22-30) mmol/L BUN (9-20) mg/dL Creatinine (0.8-1.5) mg/dL Glucose (75-100) mg/dL POC Glucose 128 H (70-105) Calcium (8.4-10.2) mg/dL Magnesium (1.7-2.3) mg/dL C-Reactive Protein 3.60 H (0.00-1.30) mg/dL Crossmatch
[2018-06-11] MEDS: HumuLIN R SUB-Q SCH ×4 (01:21→21:17)
[2018-06-11] MEDS: LOPRESSOR IV SCH ×4 (01:58→21:18)
[2018-06-11] MEDS: D5W 1,000 ML IV SCH (05:18)
[2018-06-11] MEDS: APRESOLINE PO SCH ×3 (06:38→21:15)
[2018-06-11] MEDS: ZOSYN/NS 2.25 GM/50ML 2.25 GM/50 ML BAG IV SCH ×3 (06:40→21:18)
[2018-06-11 07:22] LABS: Hematocrit 30.7 % (35.5-45.6); Hemoglobin 9.8 gm/dl (11.8-15.2); Mean Corpuscular HGB Conc 32 % (32-34); Mean Corpuscular Hemoglobin 29 pg (28-32); Mean Corpuscular Volume 91 fl (84-94); Red Cell Distribution Width 18.1 % (13.2-15.2)
[2018-06-11 07:28] LABS: Platelet Count 365 K/mm3 (140-440)
[2018-06-11 07:40] LABS: Calcium 7.9 mg/dL (8.4-10.2)
[2018-06-11 08:31] LABS: Bacteria,Urine 1+ /HPF (Negative); Bilirubin,Urine NEG (Negative); Blood,Urine SM (Negative); Color,Urine Yellow (Yellow); Mucus,Urine FEW /HPF; Urobilinogen,Urine < 2.0 mg/dL (<2.0)
--- NOTE | 2018-06-11 08:46 | Ultrasound Report ---
FINAL REPORT EXAM: US CHEST HISTORY: Bilateral pleural effusions. TECHNIQUE: Sonography of the thorax performed for pleural effusion evaluation. PRIORS: None. FINDINGS: There are bilateral moderate pleural effusions. Estimated volume of right pleural effusion is 392 cc. Estimated volume of left pleural effusion is 253 cc. IMPRESSION: Bilateral moderate pleural effusions.
--- NOTE | 2018-06-11 09:32 | Progress Note ---
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 Continue pain control PRN Bilateral pneumonia (possibly aspiration) Monitor respiratory status Continue Nebs PRN Continue antibiotic Sepsis Continue cefepime, metrodazole Acute kidney injury (obstructive uropathy vs contrast nephropathy) HD per nephrology Continue to monitor BMP and kidney fuction Had bilateral nephrostomy tubes placed 05/14/[address] Freeman. Acute deep venous thrombosis Anticoagulation on hold because of anemia, bilateral nephrostomy tubes and abdominal issues Moderate to severe protein calorie malnutrition Continue tube feeding Hypokalemia Potassium and mag replacement as needed Anemia likely due to Chronic illness Plan is for LTAC. had lengthy family meeting on 06/09/18. patient is medically stable to go to LTAC. History Interval history: feels better, less abdominal pain Hospitalist Physical - Physical exam Narrative exam: GEN:Not in acute distress, lying in bed, very ill looking, HEENT: Normocephalic, atraumatic, Neck: supple, No JVD Lungs: Clear to auscultaion bilaterally, no crackles Heart:S1 and S2 regular no murmurs, rubs or gallop Abd:soft, mild tender, ostomy, bilat nephrostomy tubes, bowel sounds present Ext: No edema, clubbing or cyanosis Neuro: Awake, alert,oriented - Constitutional Vitals: Temp Pulse Resp BP Pulse Ox 98.6 F 89 22 173/100 92 06/11/18 06:12 06/11/18 06:38 06/11/18 06:12 06/11/18 06:38 06/11/18 06:12 General appearance: Present: no acute distress Results - Labs CBC & Chem 7: 06/11/18 05:41 06/11/18 05:41 Labs: Laboratory Last Values WBC 14.6 K/mm3 (4.5-11.0) H 06/11/18 05:41 RBC 3.40 M/mm3 (3.65-5.03) L 06/11/18 05:41 Hgb 9.8 gm/dl (11.8-15.2) L 06/11/18 05:41 Hct 30.7 % (35.5-45.6) L 06/11/18 05:41 MCV 91 fl (84-94) 06/11/18 05:41 MCH 29 pg (28-32) 06/11/18 05:41 MCHC 32 % (32-34) 06/11/18 05:41 RDW 18.1 % (13.2-15.2) H 06/11/18 05:41 Plt Count 365 K/mm3 (140-440) 06/11/18 05:41 Lymph % (Auto) 7.9 % (13.4-35.0) L 06/08/18 21:43 [place] % (Auto) 5.7 % (0.0-7.3) 06/08/18 21:43 Eos % (Auto) 0.3 % (0.0-4.3) 06/08/18 21:43 Baso % (Auto) 1.3 % (0.0-1.8) 06/08/18 21:43 Lymph # 0.8 K/mm3 (1.2-5.4) L 06/08/18 21:43 Winn # 0.6 K/mm3 (0.0-0.8) 06/08/18 21:43 Eos # 0.0 K/mm3 (0.0-0.4) 06/08/18 21:43 Baso # 0.1 K/mm3 (0.0-0.1) 06/08/18 21:43 Add Manual Diff Complete 05/31/18 04:50 Total Counted 100 05/31/18 04:50 Seg Neutrophils % 84.8 % (40.0-70.0) H 06/08/18 21:43 Seg Neuts % (Manual) 91.0 % (40.0-70.0) H 05/31/18 04:50 Band Neutrophils % 2.0 % 05/31/18 04:50 Lymphocytes % (Manual) 2.0 % (13.4-35.0) L 05/31/18 04:50 Reactive Lymphs % (Man) 0 % 05/31/18 04:50 Monocytes % (Manual) 2.0 % (0.0-7.3) 05/31/18 04:50 Eosinophils % (Manual) 1.0 % (0.0-4.3) 05/31/18 04:50 Basophils % (Manual) 0 % (0.0-1.8) 05/31/18 04:50 Metamyelocytes % 1.0 % 05/31/18 04:50 Myelocytes % 1.0 % 05/31/18 04:50 Promyelocytes % 0 % 05/31/18 04:50 Blast Cells % 0 % 05/31/18 04:50 Nucleated RBC % Not Reportable 05/31/18 04:50 Seg Neutrophils # 8.6 K/mm3 (1.8-7.7) H 06/08/18 21:43 Seg Neutrophils # Man 17.0 K/mm3 (1.8-7.7) H 05/31/18 04:50 Band Neutrophils # 0.4 K/mm3 05/31/18 04:50 Lymphocytes # (Manual) 0.4 K/mm3 (1.2-5.4) L 05/31/18 04:50 Abs React Lymphs (Man) 0.0 K/mm3 05/31/18 04:50 Monocytes # (Manual) 0.4 K/mm3 (0.0-0.8) 05/31/18 04:50 Eosinophils # (Manual) 0.2 K/mm3 (0.0-0.4) 05/31/18 04:50 Basophils # (Manual) 0.0 K/mm3 (0.0-0.1) 05/31/18 04:50 Metamyelocytes # 0.2 K/mm3 05/31/18 04:50 Myelocytes # 0.2 K/mm3 05/31/18 04:50 Promyelocytes # 0.0 K/mm3 05/31/18 04:50 Blast Cells # 0.0 K/mm3 05/31/18 04:50 WBC Morphology Not Reportable 05/31/18 04:50 Hypersegmented Neuts Not Reportable 05/31/18 04:50 Hyposegmented Neuts Not Reportable 05/31/18 04:50 Hypogranular Neuts Not Reportable 05/31/18 04:50 Smudge Cells Not Reportable 05/31/18 04:50 Toxic Granulation Not Reportable 05/31/18 04:50 Toxic Vacuolation Not Reportable 05/31/18 04:50 Dohle Bodies Not Reportable 05/31/18 04:50 Pelger-Huet Anomaly Not Reportable 05/31/18 04:50 Mahesh Rods Not Reportable 05/31/18 04:50 Platelet Estimate Appears normal 05/31/18 04:50 Clumped Platelets Not Reportable 05/31/18 04:50 Plt Clumps, EDTA Not Reportable 05/31/18 04:50 Large Platelets Not Reportable 05/31/18 04:50 Giant Platelets Not Reportable 05/31/18 04:50 Platelet Satelliting Not Reportable 05/31/18 04:50 Plt Morphology Comment Not Reportable 05/31/18 04:50 RBC Morphology Not Reportable 05/31/18 04:50 Dimorphic RBCs Not Reportable 05/31/18 04:50 Polychromasia Not Reportable 05/31/18 04:50 Hypochromasia Few 05/31/18 04:50 Poikilocytosis Not Reportable 05/31/18 04:50 Anisocytosis 1+ 05/31/18 04:50 Microcytosis Few 05/31/18 04:50 Macrocytosis Not Reportable 05/31/18 04:50 Spherocytes Not Reportable 05/31/18 04:50 Pappenheimer Bodies Not Reportable 05/31/18 04:50 Sickle Cells Not Reportable 05/31/18 04:50 Target Cells Rare 05/31/18 04:50 Tear Drop Cells Not Reportable 05/31/18 04:50 Ovalocytes 1+ 05/31/18 04:50 Helmet Cells Not Reportable 05/31/18 04:50 [place] Bodies Not Reportable 05/31/18 04:50 [place] Rings Not Reportable 05/31/18 04:50 [place] Cells Not Reportable 05/31/18 04:50 Bite Cells Not Reportable 05/31/18 04:50 Crenated Cell Not Reportable 05/31/18 04:50 Elliptocytes Not Reportable 05/31/18 04:50 Acanthocytes (Spur) Not Reportable 05/31/18 04:50 Rouleaux Not Reportable 05/31/18 04:50 Hemoglobin C Crystals Not Reportable 05/31/18 04:50 Schistocytes Not Reportable 05/31/18 04:50 Malaria parasites Not Reportable 05/31/18 04:50 Mk Bodies Not Reportable 05/31/18 04:50 Hem Pathologist Commnt No 05/31/18 04:50 PT 17.1 Sec. (12.2-14.9) H 06/03/18 09:18 INR 1.34 (0.87-1.13) H 06/03/18 09:18 APTT 40.0 Sec. (24.2-36.6) H 05/23/18 09:03 POC ABG pH 7.362 (7.35-7.45) 05/31/18 09:58 POC ABG pCO2 36.4 (35-45) 05/31/18 09:58 POC ABG pO2 101 (80-105) 05/31/18 09:58 POC ABG HCO3 20.7 05/31/18 09:58 POC ABG Total CO2 22 05/31/18 09:58 POC ABG O2 Sat 98 05/31/18 09:58 POC ABG Base Excess -5 05/31/18 09:58 FiO2 40 % 05/31/18 09:58 Sodium 143 mmol/L (137-145) 06/11/18 05:41 Potassium 4.1 mmol/L (3.6-5.0) 06/11/18 05:41 Chloride 110.8 mmol/L (98-107) H 06/11/18 05:41 Carbon Dioxide 18 mmol/L (22-30) L 06/11/18 05:41 Anion Gap 18 mmol/L 06/11/18 05:41 BUN 77 mg/dL (9-20) H 06/11/18 05:41 Creatinine 3.0 mg/dL (0.8-1.5) H 06/11/18 05:41 Estimated GFR 27 ml/min 06/11/18 05:41 BUN/Creatinine Ratio 26 % 06/11/18 05:41 Glucose 116 mg/dL (75-100) H 06/11/18 05:41 POC Glucose 136 (70-105) H 06/11/18 06:20 Hemoglobin A1c 5.7 % (4-6) 05/14/18 05:05 Lactic Acid 3.80 mmol/L (0.7-2.0) H* 05/26/18 11:00 Calcium 7.9 mg/dL (8.4-10.2) L 06/11/18 05:41 Phosphorus 3.50 mg/dL (2.5-4.5) 06/11/18 05:41 Magnesium 2.10 mg/dL (1.7-2.3) 06/11/18 05:41 Iron 24 ug/dL (49-181) L 05/16/18 07:02 TIBC 160 mcg/dL (250-450) L 05/16/18 07:02 Ferritin 325.8 ng/mL (13.0-400.0) 05/16/18 07:02 Total Bilirubin 0.50 mg/dL (0.1-1.2) 06/02/18 Unknown AST 46 units/L (5-40) H 06/02/18 Unknown ALT 66 units/L (7-56) H 06/02/18 Unknown Alkaline Phosphatase 119 units/L (35-129) 06/02/18 Unknown Lactate Dehydrogenase 297 units/L (91-180) H 06/08/18 21:36 Total Creatine Kinase 156 units/L (55-170) 05/25/18 22:46 CK-MB (CK-2) 2.3 ng/mL (0.0-4.0) 05/25/18 22:46 CK-MB (CK-2) Rel Index 1.4 (0-4) 05/25/18 22:46 C-Reactive Protein 3.60 mg/dL (0.00-1.30) H 06/10/18 17:15 Total Protein 5.7 g/dL (6.3-8.2) L 06/02/18 Unknown Albumin 1.5 g/dL (3.9-5) L 06/02/18 Unknown Albumin/Globulin Ratio 0.4 % 06/02/18 Unknown Triglycerides 112 mg/dL (2-149) 06/03/18 03:31 Prostate Specific Ag 0.96 ng/mL (0.00-4.00) 05/14/18 13:29 Vitamin B12 359.2 pg/mL (211-911) 05/16/18 07:02 Folate 5.39 ng/mL (7.3-26.0) L 05/16/18 07:02 TSH 3.180 mlU/mL (0.270-4.200) 05/14/18 05:05 PTH Intact 65.37 pg/mL (15-65) H 05/14/18 05:05 Urine Color Yellow (Yellow) 06/11/18 07:41 Urine Turbidity Slightly-cloudy (Clear) 06/11/18 07:41 Urine pH 6.0 (5.0-7.0) 06/11/18 07:41 Ur Specific [place] 1.011 (1.003-1.030) 06/11/18 07:41 Urine Protein 100 mg/dl mg/dL (Negative) 06/11/18 07:41 Urine Glucose (UA) 150 mg/dL (Negative) 06/11/18 07:41 Urine Ketones Neg mg/dL (Negative) 06/11/18 07:41 Urine Blood Sm (Negative) 06/11/18 07:41 Urine Nitrite Neg (Negative) 06/11/18 07:41 Urine Bilirubin Neg (Negative) 06/11/18 07:41 Urine Urobilinogen < 2.0 mg/dL (<2.0) 06/11/18 07:41 Ur Leukocyte Esterase Sm (Negative) 06/11/18 07:41 Urine WBC (Auto) 10.0 /HPF (0.0-6.0) H 06/11/18 07:41 Urine RBC (Auto) 5.0 /HPF (0.0-6.0) 06/11/18 07:41 U Epithel Cells (Auto) 1.0 /HPF (0-13.0) 06/11/18 07:41 Urine Bacteria (Auto) 1+ /HPF (Negative) 06/11/18 07:41 Urine WBC Clumps Few /HPF 05/13/18 19:39 Urine Mucus Few /HPF 06/11/18 07:41 Ur Yeast w Hyphae Few /HPF 06/11/18 07:41 Urine Yeast (Budding) Few /HPF 06/11/18 07:41 Urine Creatinine 66.0 mg/dL (0.1-20.0) H 05/13/18 19:39 Urine Sodium 60 mmol/L 05/13/18 19:39 Urine Potassium 8.69 mmol/L 05/13/18 19:39 Urine Chloride 27.8 mmolL (110-250) L 05/13/18 19:39 Urine Total Protein 24 mg/dL (5-11.8) H 05/13/18 19:39 Fluid Type Ascitic 06/03/18 Unknown Fluid Color Yellow 06/03/18 Unknown Fluid Appearance Cloudy 06/03/18 Unknown Fluid WBC 62374 /mm3 06/03/18 Unknown Fluid RBC 9 /mm3 06/03/18 Unknown Fluid Seg Neutrophils 98.0 % 06/03/18 Unknown Fluid Lymphocytes 2.0 % 06/03/18 Unknown Fluid Reactive Lymphs 0 % 06/03/18 Unknown Fluid Monocytes 0 % 06/03/18 Unknown Fluid Eosinophils 0 % 06/03/18 Unknown Fluid Basophils 0 % 06/03/18 Unknown Fluid Glucose 10 mg/dL (40-70) L 06/03/18 Unknown Fluid Total Protein 3.7 (15.0-45.0) L 06/03/18 Unknown Fluid Albumin 0.8 g/dL 06/03/18 Unknown Fluid LDH > 48824 06/03/18 Unknown Fluid Amylase 126 06/03/18 Unknown Vancomycin Trough 25.1 ug/mL (5.0-20.0) H 05/25/18 22:46 Random Vancomycin 34.3 ug/mL (0-40.0) 05/26/18 11:01 Urine Opiates Screen Presumptive negative 05/13/18 19:39 Urine Methadone Screen Presumptive negative 05/13/18 19:39 Ur Barbiturates Screen Presumptive negative 05/13/18 19:39 Ur Phencyclidine Scrn Presumptive negative 05/13/18 19:39 Ur Amphetamines Screen Presumptive negative 05/13/18 19:39 U Benzodiazepines Scrn Presumptive negative 05/13/18 19:39 Urine Cocaine Screen Presumptive negative 05/13/18 19:39 U Marijuana (THC) Screen Presumptive negative 05/13/18 19:39 Drugs of Abuse Note Disclamer 05/13/18 19:39 ZEUS Screen Negative (Negative) 05/14/18 05:05 Proteinase 3 (PR3) Ab <1.0 AI (<1.0) 05/14/18 05:05 Myeloperoxidase Ab <1.0 AI (<1.0) 05/14/18 05:05 Complement C3 147 mg/dL (82-185) 05/14/18 05:05 Complement C4 45 mg/dL (15-53) 05/14/18 05:05 Hepatitis A IgM Ab Nonreactive (NonReactive) 05/27/18 13:41 Hep Bs Antigen Non-reactive (Negative) 05/27/18 13:41 Hep B Core IgM Ab Non-reactive (NonReactive) 05/27/18 13:41 Hepatitis C Antibody Non-reactive (NonReactive) 05/27/18 13:41 Miscellaneous Test Flexitest 1 H 05/27/18 13:02 Blood Type O POSITIVE 06/09/18 13:24 Antibody Screen Negative 06/09/18 13:24 Crossmatch See Detail 06/09/18 13:24
[2018-06-11] MEDS: PEPCID IV SCH (10:13)
[2018-06-11] MEDS: HEPARIN SUB-Q SCH ×2 (10:13→21:16)
[2018-06-11] MEDS: FERROUS SULFATE PO SCH ×2 (10:14→21:15)
[2018-06-11] MEDS: FOLVITE PO SCH (10:14)
--- NOTE | 2018-06-11 10:32 | Progress Note ---
Assessment and Plan 1. Acute kidney injury: Initial MARYLOU in the setting of bilateral hydronephrosis secondary to pelvic mass , now s/p bilateral nephrostomy. Recurrent Acute kidney injury likely ATN now. Patient required urgent hemodialysis due to worsening renal function and persistent hyperkalemia. Last dialyzed on 06/02/18. Creatinine level is improving. Renal prognosis is guarded. On PPN / TPN. 2. Electrolytes: Hypernatremia, IV D5W. Monitor. 3. Bowel obstruction: S/p ostomy. 4. Bilateral hydronephrosis: Secondary to pelvic mass. S/p bilateral nephrostomy. S/p Cysto and drainage of abscess. 5. Respiratory failure: S/p extubated. 6. Hypertension: On Clonidine patch 0.6 mg / 24 hr and IV Metoprolol. Monitor BP. 7. Sepsis: Complicated UTI and pneumonia. 8. Anemia. 9. 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 Await LTAC placement. Subjective Date of service: 06/11/18 Principal diagnosis: sq ca - pelvic mass Interval history: Patient was seen and examined at the bedside. Objective - Vital Signs Vital signs: Vital Signs - 12hr 06/10/18 06/11/18 06/11/18 23:59 00:00 01:58 Temperature 98.7 F Pulse Rate 80 77 82 Respiratory 18 18 Rate Blood Pressure 148/93 148/93 O2 Sat by Pulse 95 96 Oximetry 06/11/18 06/11/18 06/11/18 06:12 06:38 09:45 Temperature 98.6 F Pulse Rate 81 89 Respiratory 22 Rate Blood Pressure 173/100 173/100 O2 Sat by Pulse 92 92 Oximetry 06/11/18 10:12 Temperature Pulse Rate 77 Respiratory Rate Blood Pressure 154/92 O2 Sat by Pulse 95 Oximetry - General Appearance General appearance: well-developed, appears stated age, other (not in distress) EENT: ATNC, PERRL, hearing intact Neck: supple Respiratory: Present: Clear to Ascultation Cardiology: regular, S1S2, no murmurs Gastrointestinal: normoactive bowel sounds, distended, other (abdominal binder, bilateral nephrostomy noted) Integumentary: no rash Neurologic: other (able to move extremities) Musculoskeletal: other (no edema) - Lab 06/11/18 05:41 06/11/18 05:41 Most recent lab results Calcium 7.9 mg/dL (8.4-10.2) L 06/11/18 05:41 Phosphorus 3.50 mg/dL (2.5-4.5) 06/11/18 05:41 Magnesium 2.10 mg/dL (1.7-2.3) 06/11/18 05:41 Urine Creatinine 66.0 mg/dL (0.1-20.0) H 05/13/18 19:39 Urine Sodium 60 mmol/L 05/13/18 19:39 Urine Total Protein 24 mg/dL (5-11.8) H 05/13/18 19:39
[2018-06-11 11:01] LABS: Amphetamine Screen,Urine PRESUMPTIVE NEGATIVE; Benzodiazepines Screen,Urine PRESUMPTIVE NEGATIVE; Cannabinoid Screen,Urine PRESUMPTIVE NEGATIVE; Cocaine Screen,Urine PRESUMPTIVE NEGATIVE; Creatinine,Urine 41.2 mg/dL (0.1-20.0); Methadone Screen,Urine PRESUMPTIVE NEGATIVE; Opiate Screen,Urine PRESUMPTIVE NEGATIVE
[2018-06-11 11:31] LABS: Chloride, Urine 49.2 mmolL (110-250); Potassium, Urine 13.27 mmol/L
--- NOTE | 2018-06-11 13:54 | Hem/Onc Progress Note ---
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 Ultrasound Kidneys showed bilat hydronephrosis CT Abd shows Pelvic mass with multiple large lymph nodes Had bilateral nephrostomy tubes placed 05/14/[address] Freeman. abnormal renal function - HD - as per nephrology #Acute DVT right leg - below knee No anticoagulation for now because of bilateral nephrostomy tubes and abdo issues. 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 Ct chest was done - CTA - no PE treatmetn for pneumonia LTAC eval - Patient Problems (1) Pelvic mass in male Current Visit: Yes Status: Acute Subjective Date of service: 06/11/18 Principal diagnosis: sq cell ca Interval history: pt had diverting colostomy 05/26 has colostomy Objective - Constitutional Vitals: Last Vital Signs Temp 98.6 F 06/11/18 06:12 Pulse 77 06/11/18 10:12 Resp 22 06/11/18 06:12 BP 154/92 06/11/18 10:12 Pulse Ox 95 06/11/18 10:12 General appearance: no acute distress Performance status: 4-completely disabled - EENT Eyes: PERRL ENT: clear oral mucosa Lymph node exam: negative cervical, negative supraclavicular - Neck Neck: supple - Respiratory Respiratory effort: Positive: normal Respiratory: bilateral: CTA - Cardiovascular Heart Sounds: Present: S1 & S2 Extremities: No edema - Gastrointestinal General gastrointestinal: Present: soft, other (colostomy) Rectal Exam: deferred - Genitourinary Male genitourinary: Present: deferred - Musculoskeletal Musculoskeletal: generalized weakness - Neurologic Neurologic: moves all extremities - Labs Lab Results: Laboratory Results - last 24 hr 06/08/18 06/09/18 06/10/18 21:43 07:37 12:20 WBC RBC Hgb Hct MCV MCH MCHC RDW Plt Count Sodium Potassium Chloride Carbon Dioxide Anion Gap BUN Creatinine Estimated GFR BUN/Creatinine Ratio Glucose POC Glucose 105 Calcium Phosphorus Magnesium C-Reactive Protein CA 19-9 Antigen 57 H Urine Color Urine Turbidity Urine pH Ur Specific [place] Urine Protein Urine Glucose (UA) Urine Ketones Urine Blood Urine Nitrite Urine Bilirubin Urine Urobilinogen Ur Leukocyte Esterase Urine WBC (Auto) Urine RBC (Auto) U Epithel Cells (Auto) Urine Bacteria (Auto) Urine Mucus Ur Yeast w Hyphae Urine Yeast (Budding) Urine Creatinine Urine Sodium Urine Potassium Urine Chloride Urine Total Protein Urine Opiates Screen Urine Methadone Screen Ur Barbiturates Screen Ur Phencyclidine Scrn Ur Amphetamines Screen U Benzodiazepines Scrn Urine Cocaine Screen U Marijuana (THC) Screen Drugs of Abuse Note Miscellaneous Test Flexitest 1 H 06/10/18 06/10/18 06/11/18 17:15 17:19 01:13 WBC RBC Hgb Hct MCV MCH MCHC RDW Plt Count Sodium Potassium Chloride Carbon Dioxide Anion Gap BUN Creatinine Estimated GFR BUN/Creatinine Ratio Glucose POC Glucose 99 126 H Calcium Phosphorus Magnesium C-Reactive Protein 3.60 H CA 19-9 Antigen Urine Color Urine Turbidity Urine pH Ur Specific [place] Urine Protein Urine Glucose (UA) Urine Ketones Urine Blood Urine Nitrite Urine Bilirubin Urine Urobilinogen Ur Leukocyte Esterase Urine WBC (Auto) Urine RBC (Auto) U Epithel Cells (Auto) Urine Bacteria (Auto) Urine Mucus Ur Yeast w Hyphae Urine Yeast (Budding) Urine Creatinine Urine Sodium Urine Potassium Urine Chloride Urine Total Protein Urine Opiates Screen Urine Methadone Screen Ur Barbiturates Screen Ur Phencyclidine Scrn Ur Amphetamines Screen U Benzodiazepines Scrn Urine Cocaine Screen U Marijuana (THC) Screen Drugs of Abuse Note Miscellaneous Test 06/11/18 06/11/18 06/11/18 05:41 05:41 06:20 WBC 14.6 H RBC 3.40 L Hgb 9.8 L Hct 30.7 L MCV 91 MCH 29 MCHC 32 RDW 18.1 H Plt Count 365 Sodium 143 Potassium 4.1 Chloride 110.8 H Carbon Dioxide 18 L Anion Gap 18 BUN 77 H Creatinine 3.0 H Estimated GFR 27 BUN/Creatinine Ratio 26 Glucose 116 H POC Glucose 136 H Calcium 7.9 L Phosphorus 3.50 Magnesium 2.10 C-Reactive Protein CA 19-9 Antigen Urine Color Urine Turbidity Urine pH Ur Specific [place] Urine Protein Urine Glucose (UA) Urine Ketones Urine Blood Urine Nitrite Urine Bilirubin Urine Urobilinogen Ur Leukocyte Esterase Urine WBC (Auto) Urine RBC (Auto) U Epithel Cells (Auto) Urine Bacteria (Auto) Urine Mucus Ur Yeast w Hyphae Urine Yeast (Budding) Urine Creatinine Urine Sodium Urine Potassium Urine Chloride Urine Total Protein Urine Opiates Screen Urine Methadone Screen Ur Barbiturates Screen Ur Phencyclidine Scrn Ur Amphetamines Screen U Benzodiazepines Scrn Urine Cocaine Screen U Marijuana (THC) Screen Drugs of Abuse Note Miscellaneous Test 06/11/18 06/11/18 06/11/18 07:41 07:41 13:26 WBC RBC Hgb Hct MCV MCH MCHC RDW Plt Count Sodium Potassium Chloride Carbon Dioxide Anion Gap BUN Creatinine Estimated GFR BUN/Creatinine Ratio Glucose POC Glucose 79 Calcium Phosphorus Magnesium C-Reactive Protein CA 19-9 Antigen Urine Color Yellow Urine Turbidity Slightly-cloudy Urine pH 6.0 Ur Specific [place] 1.011 Urine Protein 100 mg/dl Urine Glucose (UA) 150 Urine Ketones Neg Urine Blood Sm Urine Nitrite Neg Urine Bilirubin Neg Urine Urobilinogen < 2.0 Ur Leukocyte Esterase Sm Urine WBC (Auto) 10.0 H Urine RBC (Auto) 5.0 U Epithel Cells (Auto) 1.0 Urine Bacteria (Auto) 1+ Urine Mucus Few Ur Yeast w Hyphae Few Urine Yeast (Budding) Few Urine Creatinine 41.2 H Urine Sodium 79 Urine Potassium 13.27 Urine Chloride 49.2 L Urine Total Protein 142 H Urine Opiates Screen Presumptive negative Urine Methadone Screen Presumptive negative Ur Barbiturates Screen Presumptive negative Ur Phencyclidine Scrn Presumptive negative Ur Amphetamines Screen Presumptive negative U Benzodiazepines Scrn Presumptive negative Urine Cocaine Screen Presumptive negative U Marijuana (THC) Screen Presumptive negative Drugs of Abuse Note Disclamer Miscellaneous Test
--- NOTE | 2018-06-11 15:59 | Progress Note ---
Assessment and Plan Patient alert, awake and resting on 3 litres O2.No acute respiratory distress.O2 saturation 95%. - Patient Problems (1) Sepsis Current Visit: Yes Status: Acute Plan to address problem: Patient is on zosyn. (2) Acute renal failure Current Visit: Yes Status: Acute Qualifiers: Acute renal failure type: unspecified Qualified Code(s): N17.9 - Acute kidney failure, unspecified Plan to address problem: Management as per nephrology. (3) Hypertensive urgency, malignant Current Visit: Yes Status: Acute Plan to address problem: Management as per primary care. (4) Intestinal obstruction Current Visit: Yes Status: Acute Plan to address problem: Management as per primary care and surgery. (5) Pelvic mass in male Current Visit: Yes Status: Acute Plan to address problem: Followed by urology. (6) UTI (urinary tract infection) Current Visit: Yes Status: Acute Plan to address problem: Patient is on Zosyn. (7) Pneumonia involving left lung Current Visit: Yes Status: Acute Plan to address problem: Patient is on zosyn. (8) Bilateral pleural effusion Current Visit: Yes Status: Acute Plan to address problem: Ultrasound of chest reported moderate bilateral pleural effusion. January schedule for thoracentesis on wednesday. Subjective Date of service: 06/11/18 Principal diagnosis: sq ca - pelvic mass Interval history: Patient alert, awake and resting on 3 litres O2.No acute respiratory distress.O2 saturation 95%. Objective Vital Signs - 12hr 06/11/18 06/11/18 06/11/18 06:12 06:38 09:45 Temperature 98.6 F Pulse Rate 81 89 Respiratory 22 Rate Blood Pressure 173/100 173/100 O2 Sat by Pulse 92 92 Oximetry 06/11/18 10:12 Temperature Pulse Rate 77 Respiratory Rate Blood Pressure 154/92 O2 Sat by Pulse 95 Oximetry Constitutional: no acute distress, alert, other (chronically ill looking middle aged AAM, normocephalic and atraumatic, ) Eyes: non-icteric ENT: oropharynx moist Neck: supple, no lymphadenopathy, no JVD, other (no thyromegaly) Effort: mildly labored Ascultation: Bilateral: diminished breath sounds, rhonchi (scant in bases) Percussion: Bilateral: not dull Cardiovascular: regular rate and rhythm, other (No R/M) Gastrointestinal: hypoactive bowel sounds, soft, tender (mild), other (Distended ; No palpable HSM, bilateral nephrostomy tubes,) Integumentary: other (femoral vascath) Extremities: no cyanosis, no edema, pulses normal, no ischemia or petechiae Neurologic: normal mental status, non-focal exam, pupils equal and round, other (weak) Psychiatric: mood appropriate, affect normal CBC and BMP: 06/11/18 05:41 06/11/18 05:41 ABG, PT/INR, D-dimer: ABG POC ABG pH 7.362 (7.35-7.45) 05/31/18 09:58 POC ABG pCO2 36.4 (35-45) 05/31/18 09:58 POC ABG pO2 101 (80-105) 05/31/18 09:58 POC ABG HCO3 20.7 05/31/18 09:58 POC ABG Total CO2 22 05/31/18 09:58 POC ABG O2 Sat 98 05/31/18 09:58 PT/INR, D-dimer PT 17.1 Sec. (12.2-14.9) H 06/03/18 09:18 INR 1.34 (0.87-1.13) H 06/03/18 09:18 Abnormal lab findings: Abnormal Labs 05/13/18 05/13/18 05/13/18 04:27 04:27 19:39 WBC RBC 3.13 L Hgb 9.4 L Hct 26.8 L MCHC 35 H RDW Plt Count Lymph % (Auto) [place] % (Auto) 9.6 H Lymph # [place] # Seg Neutrophils % Seg Neuts % (Manual) Lymphocytes % (Manual) Seg Neutrophils # Seg Neutrophils # Man Lymphocytes # (Manual) PT INR APTT POC ABG pH POC ABG pCO2 POC ABG pO2 Sodium 132 L Potassium 5.5 H Chloride 94.1 L Carbon Dioxide 19 L BUN 72 H Creatinine 14.4 H Glucose POC Glucose Lactic Acid Calcium Phosphorus Magnesium Iron TIBC AST ALT Alkaline Phosphatase Lactate Dehydrogenase Total Creatine Kinase C-Reactive Protein Total Protein Albumin 2.8 L CA 19-9 Antigen Folate PTH Intact Urine WBC (Auto) Urine Creatinine 66.0 H Urine Chloride 27.8 L Urine Total Protein 24 H Fluid Glucose Fluid Total Protein Vancomycin Trough Miscellaneous Test Crossmatch 05/13/18 05/14/18 05/14/18 20:00 05:05 05:05 WBC RBC Hgb Hct MCHC RDW Plt Count Lymph % (Auto) [place] % (Auto) Lymph # [place] # Seg Neutrophils % Seg Neuts % (Manual) Lymphocytes % (Manual) Seg Neutrophils # Seg Neutrophils # Man Lymphocytes # (Manual) PT INR APTT POC ABG pH POC ABG pCO2 POC ABG pO2 Sodium 132 L 131 L Potassium 5.2 H 5.8 H Chloride 93.0 L 95.6 L Carbon Dioxide 19 L 20 L BUN 74 H 81 H Creatinine 15.0 H 16.6 H Glucose 134 H 127 H POC Glucose Lactic Acid Calcium 8.2 L 7.9 L Phosphorus 6.30 H Magnesium Iron TIBC AST ALT Alkaline Phosphatase Lactate Dehydrogenase Total Creatine Kinase 236 H C-Reactive Protein Total Protein Albumin CA 19-9 Antigen Folate PTH Intact 65.37 H Urine WBC (Auto) Urine Creatinine Urine Chloride Urine Total Protein Fluid Glucose Fluid Total Protein Vancomycin Trough Miscellaneous Test Crossmatch 05/14/18 05/14/18 05/14/18 09:28 10:56 13:29 WBC RBC Hgb Hct MCHC RDW Plt Count Lymph % (Auto) [place] % (Auto) Lymph # [place] # Seg Neutrophils % Seg Neuts % (Manual) Lymphocytes % (Manual) Seg Neutrophils # Seg Neutrophils # Man Lymphocytes # (Manual) PT INR APTT 38.2 H POC ABG pH POC ABG pCO2 POC ABG pO2 Sodium Potassium Chloride Carbon Dioxide BUN Creatinine Glucose POC Glucose 127 H 126 H Lactic Acid Calcium Phosphorus Magnesium Iron TIBC AST ALT Alkaline Phosphatase Lactate Dehydrogenase Total Creatine Kinase C-Reactive Protein Total Protein Albumin CA 19-9 Antigen Folate PTH Intact Urine WBC (Auto) Urine Creatinine Urine Chloride Urine Total Protein Fluid Glucose Fluid Total Protein Vancomycin Trough Miscellaneous Test Crossmatch 05/15/18 05/15/18 05/16/18 08:06 08:06 07:02 WBC RBC 2.84 L 2.74 L Hgb 8.5 L 8.5 L Hct 24.2 L 23.5 L MCHC 35 H 36 H RDW Plt Count Lymph % (Auto) [place] % (Auto) 10.4 H 11.0 H Lymph # 1.1 L [place] # 0.9 H Seg Neutrophils % 72.6 H Seg Neuts % (Manual) Lymphocytes % (Manual) Seg Neutrophils # Seg Neutrophils # Man Lymphocytes # (Manual) PT INR APTT POC ABG pH POC ABG pCO2 POC ABG pO2 Sodium Potassium Chloride Carbon Dioxide 19 L BUN 66 H Creatinine 12.0 H Glucose 115 H POC Glucose Lactic Acid Calcium 8.1 L Phosphorus Magnesium Iron TIBC AST ALT Alkaline Phosphatase Lactate Dehydrogenase Total Creatine Kinase C-Reactive Protein Total Protein Albumin CA 19-9 Antigen Folate PTH Intact Urine WBC (Auto) Urine Creatinine Urine Chloride Urine Total Protein Fluid Glucose Fluid Total Protein Vancomycin Trough Miscellaneous Test Crossmatch 05/16/18 05/16/18 05/17/18 07:02 07:02 05:08 WBC RBC 2.78 L Hgb 8.2 L Hct 23.9 L MCHC RDW Plt Count Lymph % (Auto) [place] % (Auto) 13.9 H Lymph # [place] # 0.9 H Seg Neutrophils % Seg Neuts % (Manual) Lymphocytes % (Manual) Seg Neutrophils # Seg Neutrophils # Man Lymphocytes # (Manual) PT INR APTT POC ABG pH POC ABG pCO2 POC ABG pO2 Sodium Potassium Chloride Carbon Dioxide BUN 28 H Creatinine 2.4 H D Glucose POC Glucose Lactic Acid Calcium 8.3 L Phosphorus Magnesium 1.50 L Iron 24 L TIBC 160 L AST ALT Alkaline Phosphatase Lactate Dehydrogenase Total Creatine Kinase C-Reactive Protein Total Protein Albumin CA 19-9 Antigen Folate 5.39 L PTH Intact Urine WBC (Auto) Urine Creatinine Urine Chloride Urine Total Protein Fluid Glucose Fluid Total Protein Vancomycin Trough Miscellaneous Test Crossmatch 05/17/18 05/18/18 05/18/18 05:08 05:57 05:57 WBC RBC 2.79 L Hgb 8.3 L Hct 24.0 L MCHC 35 H RDW Plt Count Lymph % (Auto) [place] % (Auto) 11.8 H Lymph # [place] # 0.9 H Seg Neutrophils % Seg Neuts % (Manual) Lymphocytes % (Manual) Seg Neutrophils # Seg Neutrophils # Man Lymphocytes # (Manual) PT INR APTT POC ABG pH POC ABG pCO2 POC ABG pO2 Sodium Potassium Chloride Carbon Dioxide BUN Creatinine Glucose POC Glucose Lactic Acid Calcium 7.7 L 8.0 L Phosphorus Magnesium 1.60 L Iron TIBC AST ALT Alkaline Phosphatase Lactate Dehydrogenase Total Creatine Kinase C-Reactive Protein Total Protein Albumin CA 19-9 Antigen Folate PTH Intact Urine WBC (Auto) Urine Creatinine Urine Chloride Urine Total Protein Fluid Glucose Fluid Total Protein Vancomycin Trough Miscellaneous Test Crossmatch 05/19/18 05/19/18 05/20/18 05:33 05:33 05:38 WBC RBC 2.95 L Hgb 8.8 L Hct 25.8 L MCHC RDW Plt Count Lymph % (Auto) 10.1 L [place] % (Auto) Lymph # 1.1 L [place] # Seg Neutrophils % 85.2 H Seg Neuts % (Manual) Lymphocytes % (Manual) Seg Neutrophils # 9.0 H Seg Neutrophils # Man Lymphocytes # (Manual) PT INR APTT POC ABG pH POC ABG pCO2 POC ABG pO2 Sodium 135 L Potassium Chloride Carbon Dioxide BUN Creatinine Glucose 132 H POC Glucose Lactic Acid Calcium 7.8 L 8.3 L Phosphorus Magnesium 1.40 L Iron TIBC AST ALT Alkaline Phosphatase Lactate Dehydrogenase Total Creatine Kinase C-Reactive Protein Total Protein Albumin CA 19-9 Antigen Folate PTH Intact Urine WBC (Auto) Urine Creatinine Urine Chloride Urine Total Protein Fluid Glucose Fluid Total Protein Vancomycin Trough Miscellaneous Test Crossmatch 05/21/18 05/21/18 05/22/18 04:46 15:30 06:49 WBC 20.0 H RBC 2.70 L Hgb 7.8 L Hct 23.3 L MCHC RDW Plt Count Lymph % (Auto) [place] % (Auto) Lymph # [place] # Seg Neutrophils % Seg Neuts % (Manual) 85.0 H Lymphocytes % (Manual) 4.0 L Seg Neutrophils # Seg Neutrophils # Man 17.0 H Lymphocytes # (Manual) 0.8 L PT INR APTT POC ABG pH POC ABG pCO2 POC ABG pO2 Sodium 135 L Potassium 3.5 L Chloride Carbon Dioxide 21 L BUN 22 H Creatinine Glucose POC Glucose Lactic Acid Calcium 8.1 L Phosphorus Magnesium Iron TIBC AST ALT Alkaline Phosphatase Lactate Dehydrogenase Total Creatine Kinase C-Reactive Protein Total Protein Albumin CA 19-9 Antigen Folate PTH Intact Urine WBC (Auto) 28.0 H Urine Creatinine Urine Chloride Urine Total Protein Fluid Glucose Fluid Total Protein Vancomycin Trough Miscellaneous Test Crossmatch 05/22/18 05/22/18 05/23/18 06:49 11:23 09:03 WBC RBC Hgb Hct MCHC RDW Plt Count Lymph % (Auto) [place] % (Auto) Lymph # [place] # Seg Neutrophils % Seg Neuts % (Manual) Lymphocytes % (Manual) Seg Neutrophils # Seg Neutrophils # Man Lymphocytes # (Manual) PT INR APTT POC ABG pH POC ABG pCO2 POC ABG pO2 Sodium 134 L Potassium 3.5 L Chloride Carbon Dioxide 21 L BUN 35 H 36 H Creatinine 1.7 H Glucose 107 H POC Glucose Lactic Acid Calcium 7.9 L Phosphorus Magnesium 2.50 H Iron TIBC AST ALT Alkaline Phosphatase Lactate Dehydrogenase Total Creatine Kinase C-Reactive Protein Total Protein Albumin CA 19-9 Antigen Folate PTH Intact Urine WBC (Auto) Urine Creatinine Urine Chloride Urine Total Protein Fluid Glucose Fluid Total Protein Vancomycin Trough Miscellaneous Test Crossmatch See Detail 05/23/18 05/23/18 05/23/18 09:03 09:03 17:34 WBC 26.3 H RBC 3.57 L Hgb 10.4 L Hct 31.1 L D MCHC RDW Plt Count Lymph % (Auto) [place] % (Auto) Lymph # [place] # Seg Neutrophils % Seg Neuts % (Manual) Lymphocytes % (Manual) Seg Neutrophils # Seg Neutrophils # Man Lymphocytes # (Manual) PT 18.3 H INR 1.43 H APTT 40.0 H POC ABG pH POC ABG pCO2 POC ABG pO2 Sodium Potassium Chloride Carbon Dioxide BUN Creatinine Glucose POC Glucose 108 H Lactic Acid Calcium Phosphorus Magnesium Iron TIBC AST ALT Alkaline Phosphatase Lactate Dehydrogenase Total Creatine Kinase C-Reactive Protein Total Protein Albumin CA 19-9 Antigen Folate PTH Intact Urine WBC (Auto) Urine Creatinine Urine Chloride Urine Total Protein Fluid Glucose Fluid Total Protein Vancomycin Trough Miscellaneous Test Crossmatch 05/23/18 05/24/18 05/24/18 21:14 04:43 08:04 WBC RBC Hgb Hct MCHC RDW Plt Count Lymph % (Auto) [place] % (Auto) Lymph # [place] # Seg Neutrophils % Seg Neuts % (Manual) Lymphocytes % (Manual) Seg Neutrophils # Seg Neutrophils # Man Lymphocytes # (Manual) PT INR APTT POC ABG pH POC ABG pCO2 POC ABG pO2 Sodium 146 H Potassium Chloride 108.6 H Carbon Dioxide BUN 33 H Creatinine Glucose 109 H POC Glucose 110 H 106 H Lactic Acid Calcium 8.3 L Phosphorus Magnesium 2.50 H Iron TIBC AST ALT Alkaline Phosphatase Lactate Dehydrogenase Total Creatine Kinase C-Reactive Protein Total Protein Albumin CA 19-9 Antigen Folate PTH Intact Urine WBC (Auto) Urine Creatinine Urine Chloride Urine Total Protein Fluid Glucose Fluid Total Protein Vancomycin Trough Miscellaneous Test Crossmatch 05/25/18 05/25/18 05/25/18 05:42 05:49 19:50 WBC RBC Hgb Hct MCHC RDW Plt Count Lymph % (Auto) [place] % (Auto) Lymph # [place] # Seg Neutrophils % Seg Neuts % (Manual) Lymphocytes % (Manual) Seg Neutrophils # Seg Neutrophils # Man Lymphocytes # (Manual) PT INR APTT POC ABG pH POC ABG pCO2 POC ABG pO2 Sodium 150 H Potassium Chloride 112.5 H Carbon Dioxide BUN 34 H Creatinine Glucose 102 H POC Glucose 107 H Lactic Acid Calcium Phosphorus Magnesium Iron TIBC AST ALT Alkaline Phosphatase Lactate Dehydrogenase Total Creatine Kinase C-Reactive Protein 34.50 H Total Protein Albumin CA 19-9 Antigen Folate PTH Intact Urine WBC (Auto) Urine Creatinine Urine Chloride Urine Total Protein Fluid Glucose Fluid Total Protein Vancomycin Trough Miscellaneous Test Crossmatch 05/25/18 05/25/18 05/25/18 19:50 21:05 22:46 WBC RBC Hgb Hct MCHC RDW Plt Count Lymph % (Auto) [place] % (Auto) Lymph # [place] # Seg Neutrophils % Seg Neuts % (Manual) Lymphocytes % (Manual) Seg Neutrophils # Seg Neutrophils # Man Lymphocytes # (Manual) PT INR APTT POC ABG pH 7.483 H POC ABG pCO2 24.0 L POC ABG pO2 72 L Sodium Potassium Chloride Carbon Dioxide BUN Creatinine Glucose POC Glucose Lactic Acid 5.90 H* Calcium Phosphorus Magnesium Iron TIBC AST ALT Alkaline Phosphatase Lactate Dehydrogenase Total Creatine Kinase C-Reactive Protein Total Protein Albumin CA 19-9 Antigen Folate PTH Intact Urine WBC (Auto) Urine Creatinine Urine Chloride Urine Total Protein Fluid Glucose Fluid Total Protein Vancomycin Trough 25.1 H Miscellaneous Test Crossmatch 05/25/18 05/26/18 05/26/18 22:46 00:21 00:51 WBC RBC Hgb Hct MCHC RDW Plt Count Lymph % (Auto) [place] % (Auto) Lymph # [place] # Seg Neutrophils % Seg Neuts % (Manual) Lymphocytes % (Manual) Seg Neutrophils # Seg Neutrophils # Man Lymphocytes # (Manual) PT INR APTT POC ABG pH POC ABG pCO2 POC ABG pO2 Sodium Potassium Chloride Carbon Dioxide BUN Creatinine Glucose POC Glucose 133 H Lactic Acid 8.10 H* 6.20 H* Calcium Phosphorus Magnesium Iron TIBC AST ALT Alkaline Phosphatase Lactate Dehydrogenase Total Creatine Kinase C-Reactive Protein Total Protein Albumin CA 19-9 Antigen Folate PTH Intact Urine WBC (Auto) Urine Creatinine Urine Chloride Urine Total Protein Fluid Glucose Fluid Total Protein Vancomycin Trough Miscellaneous Test Crossmatch 05/26/18 05/26/18 05/26/18 01:13 02:24 02:24 WBC 18.7 H RBC Hgb 11.6 L Hct MCHC RDW Plt Count Lymph % (Auto) [place] % (Auto) Lymph # [place] # Seg Neutrophils % Seg Neuts % (Manual) Lymphocytes % (Manual) Seg Neutrophils # Seg Neutrophils # Man Lymphocytes # (Manual) PT INR APTT POC ABG pH POC ABG pCO2 POC ABG pO2 Sodium 147 H Potassium 6.2 H* D Chloride 111.9 H Carbon Dioxide 19 L BUN 80 H Creatinine 5.1 H D Glucose 112 H POC Glucose Lactic Acid 5.20 H* Calcium 6.7 L D Phosphorus Magnesium Iron TIBC AST ALT Alkaline Phosphatase Lactate Dehydrogenase Total Creatine Kinase C-Reactive Protein Total Protein Albumin CA 19-9 Antigen Folate PTH Intact Urine WBC (Auto) Urine Creatinine Urine Chloride Urine Total Protein Fluid Glucose Fluid Total Protein Vancomycin Trough Miscellaneous Test Crossmatch 05/26/18 05/26/18 05/26/18 04:20 04:20 05:39 WBC RBC Hgb Hct MCHC RDW Plt Count Lymph % (Auto) [place] % (Auto) Lymph # [place] # Seg Neutrophils % Seg Neuts % (Manual) Lymphocytes % (Manual) Seg Neutrophils # Seg Neutrophils # Man Lymphocytes # (Manual) PT INR APTT POC ABG pH POC ABG pCO2 POC ABG pO2 Sodium 150 H Potassium Chloride 110.0 H Carbon Dioxide 19 L BUN 66 H Creatinine Glucose 166 H POC Glucose 187 H Lactic Acid 5.10 H* Calcium 6.9 L Phosphorus 6.70 H D Magnesium Iron TIBC AST ALT Alkaline Phosphatase Lactate Dehydrogenase Total Creatine Kinase C-Reactive Protein Total Protein Albumin CA 19-9 Antigen Folate PTH Intact Urine WBC (Auto) Urine Creatinine Urine Chloride Urine Total Protein Fluid Glucose Fluid Total Protein Vancomycin Trough Miscellaneous Test Crossmatch 05/26/18 05/26/18 05/26/18 06:02 07:29 11:00 WBC RBC Hgb Hct MCHC RDW Plt Count Lymph % (Auto) [place] % (Auto) Lymph # [place] # Seg Neutrophils % Seg Neuts % (Manual) Lymphocytes % (Manual) Seg Neutrophils # Seg Neutrophils # Man Lymphocytes # (Manual) PT INR APTT POC ABG pH POC ABG pCO2 28.8 L POC ABG pO2 Sodium Potassium Chloride Carbon Dioxide BUN Creatinine Glucose POC Glucose Lactic Acid 4.80 H* 3.80 H* Calcium Phosphorus Magnesium Iron TIBC AST ALT Alkaline Phosphatase Lactate Dehydrogenase Total Creatine Kinase C-Reactive Protein Total Protein Albumin CA 19-9 Antigen Folate PTH Intact Urine WBC (Auto) Urine Creatinine Urine Chloride Urine Total Protein Fluid Glucose Fluid Total Protein Vancomycin Trough Miscellaneous Test Crossmatch 05/26/18 05/26/18 05/26/18 11:01 12:28 18:00 WBC RBC Hgb Hct MCHC RDW Plt Count Lymph % (Auto) [place] % (Auto) Lymph # [place] # Seg Neutrophils % Seg Neuts % (Manual) Lymphocytes % (Manual) Seg Neutrophils # Seg Neutrophils # Man Lymphocytes # (Manual) PT INR APTT POC ABG pH POC ABG pCO2 POC ABG pO2 Sodium 150 H 151 H Potassium 5.3 H D 6.1 H* Chloride 110.3 H 117.0 H Carbon Dioxide 21 L 20 L BUN 75 H 77 H Creatinine 4.3 H D 4.6 H Glucose 161 H POC Glucose 114 H Lactic Acid Calcium 7.5 L 6.7 L Phosphorus Magnesium Iron TIBC AST 1041 H ALT 406 H Alkaline Phosphatase 281 H Lactate Dehydrogenase Total Creatine Kinase C-Reactive Protein Total Protein 4.4 L Albumin 1.3 L CA 19-9 Antigen Folate PTH Intact Urine WBC (Auto) Urine Creatinine Urine Chloride Urine Total Protein Fluid Glucose Fluid Total Protein Vancomycin Trough Miscellaneous Test Crossmatch 05/26/18 05/26/18 05/27/18 18:02 19:17 01:01 WBC 21.7 H RBC 2.70 L Hgb 7.8 L D Hct 24.6 L D MCHC RDW 15.3 H Plt Count Lymph % (Auto) [place] % (Auto) Lymph # [place] # Seg Neutrophils % Seg Neuts % (Manual) 94.0 H Lymphocytes % (Manual) 3.0 L Seg Neutrophils # Seg Neutrophils # Man 20.4 H Lymphocytes # (Manual) 0.7 L PT INR APTT POC ABG pH 7.159 L 7.205 L POC ABG pCO2 54.5 H 53.0 H POC ABG pO2 252 H Sodium Potassium Chloride Carbon Dioxide BUN Creatinine Glucose POC Glucose Lactic Acid Calcium Phosphorus Magnesium Iron TIBC AST ALT Alkaline Phosphatase Lactate Dehydrogenase Total Creatine Kinase C-Reactive Protein Total Protein Albumin CA 19-9 Antigen Folate PTH Intact Urine WBC (Auto) Urine Creatinine Urine Chloride Urine Total Protein Fluid Glucose Fluid Total Protein Vancomycin Trough Miscellaneous Test Crossmatch 05/27/18 05/27/18 05/27/18 05:15 05:15 06:11 WBC 24.9 H RBC 2.86 L Hgb 8.1 L Hct 25.9 L MCHC RDW 15.5 H Plt Count Lymph % (Auto) [place] % (Auto) Lymph # [place] # Seg Neutrophils % Seg Neuts % (Manual) Lymphocytes % (Manual) Seg Neutrophils # Seg Neutrophils # Man Lymphocytes # (Manual) PT INR APTT POC ABG pH 7.265 L POC ABG pCO2 46.2 H POC ABG pO2 111 H Sodium 149 H Potassium 6.9 H* Chloride 113.5 H Carbon Dioxide BUN 89 H Creatinine 5.2 H Glucose 118 H POC Glucose Lactic Acid Calcium 7.0 L Phosphorus 9.70 H D Magnesium Iron TIBC AST 876 H ALT 408 H Alkaline Phosphatase Lactate Dehydrogenase Total Creatine Kinase C-Reactive Protein Total Protein 5.2 L Albumin 1.5 L CA 19-9 Antigen Folate PTH Intact Urine WBC (Auto) Urine Creatinine Urine Chloride Urine Total Protein Fluid Glucose Fluid Total Protein Vancomycin Trough Miscellaneous Test Crossmatch 05/27/18 05/27/18 05/27/18 08:48 10:22 10:22 WBC RBC Hgb Hct MCHC RDW Plt Count Lymph % (Auto) [place] % (Auto) Lymph # [place] # Seg Neutrophils % Seg Neuts % (Manual) Lymphocytes % (Manual) Seg Neutrophils # Seg Neutrophils # Man Lymphocytes # (Manual) PT INR APTT POC ABG pH POC ABG pCO2 POC ABG pO2 Sodium 146 H Potassium 6.1 H* Chloride 108.2 H Carbon Dioxide 21 L BUN 88 H Creatinine 5.6 H Glucose 163 H POC Glucose 164 H Lactic Acid Calcium 6.7 L Phosphorus Magnesium Iron TIBC AST ALT Alkaline Phosphatase Lactate Dehydrogenase Total Creatine Kinase C-Reactive Protein 40.70 H Total Protein Albumin CA 19-9 Antigen Folate PTH Intact Urine WBC (Auto) Urine Creatinine Urine Chloride Urine Total Protein Fluid Glucose Fluid Total Protein Vancomycin Trough Miscellaneous Test Crossmatch 05/27/18 05/27/18 05/27/18 13:02 17:39 23:27 WBC RBC Hgb Hct MCHC RDW Plt Count Lymph % (Auto) [place] % (Auto) Lymph # [place] # Seg Neutrophils % Seg Neuts % (Manual) Lymphocytes % (Manual) Seg Neutrophils # Seg Neutrophils # Man Lymphocytes # (Manual) PT INR APTT POC ABG pH POC ABG pCO2 POC ABG pO2 Sodium Potassium Chloride Carbon Dioxide BUN Creatinine Glucose POC Glucose 59 L 132 H Lactic Acid Calcium Phosphorus Magnesium Iron TIBC AST ALT Alkaline Phosphatase Lactate Dehydrogenase Total Creatine Kinase C-Reactive Protein Total Protein Albumin CA 19-9 Antigen Folate PTH Intact Urine WBC (Auto) Urine Creatinine Urine Chloride Urine Total Protein Fluid Glucose Fluid Total Protein Vancomycin Trough Miscellaneous Test Flexitest 1 H Crossmatch 05/27/18 05/28/18 05/28/18 Unknown 04:32 05:00 WBC RBC Hgb Hct MCHC RDW Plt Count Lymph % (Auto) [place] % (Auto) Lymph # [place] # Seg Neutrophils % Seg Neuts % (Manual) Lymphocytes % (Manual) Seg Neutrophils # Seg Neutrophils # Man Lymphocytes # (Manual) PT INR APTT POC ABG pH POC ABG pCO2 POC ABG pO2 134 H Sodium Potassium Chloride Carbon Dioxide BUN 69 H Creatinine 4.4 H Glucose 118 H POC Glucose Lactic Acid Calcium 8.0 L D Phosphorus 6.80 H D Magnesium Iron TIBC AST ALT Alkaline Phosphatase Lactate Dehydrogenase Total Creatine Kinase C-Reactive Protein Total Protein Albumin CA 19-9 Antigen Folate PTH Intact Urine WBC (Auto) 120.0 H Urine Creatinine Urine Chloride Urine Total Protein Fluid Glucose Fluid Total Protein Vancomycin Trough Miscellaneous Test Crossmatch 05/28/18 05/28/18 05/28/18 05:00 05:27 13:04 WBC 26.5 H RBC 2.69 L Hgb 7.7 L Hct 23.6 L MCHC RDW Plt Count Lymph % (Auto) [place] % (Auto) Lymph # [place] # Seg Neutrophils % Seg Neuts % (Manual) 96.0 H Lymphocytes % (Manual) 0 L Seg Neutrophils # Seg Neutrophils # Man 25.4 H Lymphocytes # (Manual) 0.0 L PT INR APTT POC ABG pH POC ABG pCO2 POC ABG pO2 Sodium Potassium Chloride Carbon Dioxide BUN Creatinine Glucose POC Glucose 128 H 155 H Lactic Acid Calcium Phosphorus Magnesium Iron TIBC AST ALT Alkaline Phosphatase Lactate Dehydrogenase Total Creatine Kinase C-Reactive Protein Total Protein Albumin CA 19-9 Antigen Folate PTH Intact Urine WBC (Auto) Urine Creatinine Urine Chloride Urine Total Protein Fluid Glucose Fluid Total Protein Vancomycin Trough Miscellaneous Test Crossmatch 05/28/18 05/29/18 05/29/18 17:56 03:35 04:00 WBC RBC Hgb Hct MCHC RDW Plt Count Lymph % (Auto) [place] % (Auto) Lymph # [place] # Seg Neutrophils % Seg Neuts % (Manual) Lymphocytes % (Manual) Seg Neutrophils # Seg Neutrophils # Man Lymphocytes # (Manual) PT INR APTT POC ABG pH 7.471 H POC ABG pCO2 POC ABG pO2 78 L Sodium Potassium Chloride Carbon Dioxide BUN 50 H Creatinine 3.9 H Glucose POC Glucose 110 H Lactic Acid Calcium 7.7 L Phosphorus Magnesium 1.50 L Iron TIBC AST 218 H ALT 204 H Alkaline Phosphatase Lactate Dehydrogenase Total Creatine Kinase C-Reactive Protein Total Protein 5.4 L Albumin 1.6 L CA 19-9 Antigen Folate PTH Intact Urine WBC (Auto) Urine Creatinine Urine Chloride Urine Total Protein Fluid Glucose Fluid Total Protein Vancomycin Trough Miscellaneous Test Crossmatch 05/29/18 05/29/18 05/30/18 11:51 23:56 04:54 WBC RBC Hgb Hct MCHC RDW Plt Count Lymph % (Auto) [place] % (Auto) Lymph # [place] # Seg Neutrophils % Seg Neuts % (Manual) Lymphocytes % (Manual) Seg Neutrophils # Seg Neutrophils # Man Lymphocytes # (Manual) PT INR APTT POC ABG pH POC ABG pCO2 POC ABG pO2 Sodium Potassium Chloride Carbon Dioxide BUN Creatinine Glucose POC Glucose 131 H 119 H 115 H Lactic Acid Calcium Phosphorus Magnesium Iron TIBC AST ALT Alkaline Phosphatase Lactate Dehydrogenase Total Creatine Kinase C-Reactive Protein Total Protein Albumin CA 19-9 Antigen Folate PTH Intact Urine WBC (Auto) Urine Creatinine Urine Chloride Urine Total Protein Fluid Glucose Fluid Total Protein Vancomycin Trough Miscellaneous Test Crossmatch 05/30/18 05/30/18 05/30/18 05:07 05:15 05:15 WBC 16.2 H RBC 2.53 L Hgb 7.4 L Hct 21.9 L MCHC RDW Plt Count Lymph % (Auto) [place] % (Auto) Lymph # [place] # Seg Neutrophils % Seg Neuts % (Manual) Lymphocytes % (Manual) Seg Neutrophils # Seg Neutrophils # Man Lymphocytes # (Manual) PT INR APTT POC ABG pH POC ABG pCO2 34.5 L POC ABG pO2 133 H Sodium 135 L Potassium Chloride 97.5 L Carbon Dioxide BUN 69 H Creatinine 5.4 H Glucose 105 H POC Glucose Lactic Acid Calcium 7.5 L Phosphorus 5.30 H D Magnesium Iron TIBC AST ALT Alkaline Phosphatase Lactate Dehydrogenase Total Creatine Kinase C-Reactive Protein Total Protein Albumin CA 19-9 Antigen Folate PTH Intact Urine WBC (Auto) Urine Creatinine Urine Chloride Urine Total Protein Fluid Glucose Fluid Total Protein Vancomycin Trough Miscellaneous Test Crossmatch 05/30/18 05/30/18 05/31/18 12:13 17:10 04:50 WBC 18.7 H RBC 2.86 L Hgb 8.2 L Hct 24.8 L MCHC RDW Plt Count Lymph % (Auto) [place] % (Auto) Lymph # [place] # Seg Neutrophils % Seg Neuts % (Manual) 91.0 H Lymphocytes % (Manual) 2.0 L Seg Neutrophils # Seg Neutrophils # Man 17.0 H Lymphocytes # (Manual) 0.4 L PT INR APTT POC ABG pH POC ABG pCO2 POC ABG pO2 Sodium Potassium Chloride Carbon Dioxide BUN Creatinine Glucose POC Glucose 132 H 122 H Lactic Acid Calcium Phosphorus Magnesium Iron TIBC AST ALT Alkaline Phosphatase Lactate Dehydrogenase Total Creatine Kinase C-Reactive Protein Total Protein Albumin CA 19-9 Antigen Folate PTH Intact Urine WBC (Auto) Urine Creatinine Urine Chloride Urine Total Protein Fluid Glucose Fluid Total Protein Vancomycin Trough Miscellaneous Test Crossmatch 05/31/18 05/31/18 05/31/18 04:50 05:45 11:37 WBC RBC Hgb Hct MCHC RDW Plt Count Lymph % (Auto) [place] % (Auto) Lymph # [place] # Seg Neutrophils % Seg Neuts % (Manual) Lymphocytes % (Manual) Seg Neutrophils # Seg Neutrophils # Man Lymphocytes # (Manual) PT INR APTT POC ABG pH POC ABG pCO2 POC ABG pO2 Sodium 132 L Potassium Chloride 92.4 L Carbon Dioxide BUN 77 H Creatinine 5.9 H Glucose POC Glucose 111 H 136 H Lactic Acid Calcium 7.3 L Phosphorus 6.40 H D Magnesium Iron TIBC AST ALT Alkaline Phosphatase Lactate Dehydrogenase Total Creatine Kinase C-Reactive Protein Total Protein Albumin CA 19-9 Antigen Folate PTH Intact Urine WBC (Auto) Urine Creatinine Urine Chloride Urine Total Protein Fluid Glucose Fluid Total Protein Vancomycin Trough Miscellaneous Test Crossmatch 05/31/18 06/01/18 06/01/18 17:52 00:09 04:00 WBC RBC Hgb Hct MCHC RDW Plt Count Lymph % (Auto) [place] % (Auto) Lymph # [place] # Seg Neutrophils % Seg Neuts % (Manual) Lymphocytes % (Manual) Seg Neutrophils # Seg Neutrophils # Man Lymphocytes # (Manual) PT INR APTT POC ABG pH POC ABG pCO2 POC ABG pO2 Sodium Potassium Chloride 97.5 L Carbon Dioxide BUN 49 H Creatinine 4.2 H Glucose 104 H POC Glucose 115 H 114 H Lactic Acid Calcium 7.3 L Phosphorus 4.70 H D Magnesium Iron TIBC AST ALT Alkaline Phosphatase Lactate Dehydrogenase Total Creatine Kinase C-Reactive Protein Total Protein Albumin CA 19-9 Antigen Folate PTH Intact Urine WBC (Auto) Urine Creatinine Urine Chloride Urine Total Protein Fluid Glucose Fluid Total Protein Vancomycin Trough Miscellaneous Test Crossmatch 06/01/18 06/01/18 06/02/18 11:10 17:56 00:15 WBC RBC Hgb Hct MCHC RDW Plt Count Lymph % (Auto) [place] % (Auto) Lymph # [place] # Seg Neutrophils % Seg Neuts % (Manual) Lymphocytes % (Manual) Seg Neutrophils # Seg Neutrophils # Man Lymphocytes # (Manual) PT INR APTT POC ABG pH POC ABG pCO2 POC ABG pO2 Sodium Potassium Chloride Carbon Dioxide BUN Creatinine Glucose POC Glucose 123 H 126 H 135 H Lactic Acid Calcium Phosphorus Magnesium Iron TIBC AST ALT Alkaline Phosphatase Lactate Dehydrogenase Total Creatine Kinase C-Reactive Protein Total Protein Albumin CA 19-9 Antigen Folate PTH Intact Urine WBC (Auto) Urine Creatinine Urine Chloride Urine Total Protein Fluid Glucose Fluid Total Protein Vancomycin Trough Miscellaneous Test Crossmatch 06/02/18 06/02/18 06/02/18 05:23 12:42 13:05 WBC RBC Hgb Hct MCHC RDW Plt Count Lymph % (Auto) [place] % (Auto) Lymph # [place] # Seg Neutrophils % Seg Neuts % (Manual) Lymphocytes % (Manual) Seg Neutrophils # Seg Neutrophils # Man Lymphocytes # (Manual) PT 17.1 H INR 1.34 H APTT POC ABG pH POC ABG pCO2 POC ABG pO2 Sodium Potassium Chloride Carbon Dioxide BUN Creatinine Glucose POC Glucose 135 H 142 H Lactic Acid Calcium Phosphorus Magnesium Iron TIBC AST ALT Alkaline Phosphatase Lactate Dehydrogenase Total Creatine Kinase C-Reactive Protein Total Protein Albumin CA 19-9 Antigen Folate PTH Intact Urine WBC (Auto) Urine Creatinine Urine Chloride Urine Total Protein Fluid Glucose Fluid Total Protein Vancomycin Trough Miscellaneous Test Crossmatch 06/02/18 06/02/18 06/03/18 Unknown Unknown 00:54 WBC 20.8 H RBC 2.67 L Hgb 7.7 L Hct 23.0 L MCHC RDW Plt Count 500 H Lymph % (Auto) [place] % (Auto) Lymph # [place] # Seg Neutrophils % Seg Neuts % (Manual) Lymphocytes % (Manual) Seg Neutrophils # Seg Neutrophils # Man Lymphocytes # (Manual) PT INR APTT POC ABG pH POC ABG pCO2 POC ABG pO2 Sodium 136 L Potassium 3.5 L Chloride 96.9 L Carbon Dioxide BUN 62 H Creatinine 4.9 H Glucose 133 H POC Glucose 125 H Lactic Acid Calcium 7.2 L Phosphorus 5.00 H Magnesium Iron TIBC AST 46 H ALT 66 H Alkaline Phosphatase Lactate Dehydrogenase Total Creatine Kinase C-Reactive Protein Total Protein 5.7 L Albumin 1.5 L CA 19-9 Antigen Folate PTH Intact Urine WBC (Auto) Urine Creatinine Urine Chloride Urine Total Protein Fluid Glucose Fluid Total Protein Vancomycin Trough Miscellaneous Test Crossmatch 06/03/18 06/03/18 06/03/18 03:31 09:18 09:18 WBC RBC Hgb Hct MCHC RDW Plt Count Lymph % (Auto) [place] % (Auto) Lymph # [place] # Seg Neutrophils % Seg Neuts % (Manual) Lymphocytes % (Manual) Seg Neutrophils # Seg Neutrophils # Man Lymphocytes # (Manual) PT 17.1 H INR 1.34 H APTT POC ABG pH POC ABG pCO2 POC ABG pO2 Sodium 136 L Potassium Chloride Carbon Dioxide BUN 41 H Creatinine 3.4 H Glucose 129 H POC Glucose Lactic Acid Calcium 7.4 L Phosphorus Magnesium Iron TIBC AST ALT Alkaline Phosphatase Lactate Dehydrogenase Total Creatine Kinase C-Reactive Protein 11.10 H Total Protein Albumin CA 19-9 Antigen Folate PTH Intact Urine WBC (Auto) Urine Creatinine Urine Chloride Urine Total Protein Fluid Glucose Fluid Total Protein Vancomycin Trough Miscellaneous Test Crossmatch 06/03/18 06/03/18 06/03/18 16:07 21:18 Unknown WBC RBC Hgb Hct MCHC RDW Plt Count Lymph % (Auto) [place] % (Auto) Lymph # [place] # Seg Neutrophils % Seg Neuts % (Manual) Lymphocytes % (Manual) Seg Neutrophils # Seg Neutrophils # Man Lymphocytes # (Manual) PT INR APTT POC ABG pH POC ABG pCO2 POC ABG pO2 Sodium Potassium Chloride Carbon Dioxide BUN Creatinine Glucose POC Glucose 144 H 128 H Lactic Acid Calcium Phosphorus Magnesium Iron TIBC AST ALT Alkaline Phosphatase Lactate Dehydrogenase Total Creatine Kinase C-Reactive Protein Total Protein Albumin CA 19-9 Antigen Folate PTH Intact Urine WBC (Auto) Urine Creatinine Urine Chloride Urine Total Protein Fluid Glucose 10 L Fluid Total Protein 3.7 L Vancomycin Trough Miscellaneous Test Crossmatch 06/04/18 06/04/18 06/04/18 04:31 06:14 11:38 WBC RBC Hgb Hct MCHC RDW Plt Count Lymph % (Auto) [place] % (Auto) Lymph # [place] # Seg Neutrophils % Seg Neuts % (Manual) Lymphocytes % (Manual) Seg Neutrophils # Seg Neutrophils # Man Lymphocytes # (Manual) PT INR APTT POC ABG pH POC ABG pCO2 POC ABG pO2 Sodium Potassium Chloride Carbon Dioxide BUN 55 H Creatinine 3.7 H Glucose 151 H POC Glucose 145 H 129 H Lactic Acid Calcium 7.8 L Phosphorus 4.60 H Magnesium Iron TIBC AST ALT Alkaline Phosphatase Lactate Dehydrogenase Total Creatine Kinase C-Reactive Protein Total Protein Albumin CA 19-9 Antigen Folate PTH Intact Urine WBC (Auto) Urine Creatinine Urine Chloride Urine Total Protein Fluid Glucose Fluid Total Protein Vancomycin Trough Miscellaneous Test Crossmatch 06/04/18 06/04/18 06/04/18 17:09 20:00 21:29 WBC RBC Hgb 8.8 L Hct 27.3 L MCHC RDW Plt Count Lymph % (Auto) [place] % (Auto) Lymph # [place] # Seg Neutrophils % Seg Neuts % (Manual) Lymphocytes % (Manual) Seg Neutrophils # Seg Neutrophils # Man Lymphocytes # (Manual) PT INR APTT POC ABG pH POC ABG pCO2 POC ABG pO2 Sodium Potassium Chloride Carbon Dioxide BUN Creatinine Glucose POC Glucose 142 H 130 H Lactic Acid Calcium Phosphorus Magnesium Iron TIBC AST ALT Alkaline Phosphatase Lactate Dehydrogenase Total Creatine Kinase C-Reactive Protein Total Protein Albumin CA 19-9 Antigen Folate PTH Intact Urine WBC (Auto) Urine Creatinine Urine Chloride Urine Total Protein Fluid Glucose Fluid Total Protein Vancomycin Trough Miscellaneous Test Crossmatch 06/05/18 06/05/18 06/05/18 06:30 07:00 07:00 WBC 19.3 H RBC 2.94 L Hgb 8.3 L Hct 25.6 L MCHC RDW 15.7 H Plt Count 568 H Lymph % (Auto) 4.7 L [place] % (Auto) Lymph # 0.9 L [place] # 1.1 H Seg Neutrophils % 88.9 H Seg Neuts % (Manual) Lymphocytes % (Manual) Seg Neutrophils # 17.2 H Seg Neutrophils # Man Lymphocytes # (Manual) PT INR APTT POC ABG pH POC ABG pCO2 POC ABG pO2 Sodium Potassium 3.4 L D Chloride Carbon Dioxide BUN 67 H Creatinine 3.6 H Glucose 145 H POC Glucose 153 H Lactic Acid Calcium 7.9 L Phosphorus 4.60 H Magnesium Iron TIBC AST ALT Alkaline Phosphatase Lactate Dehydrogenase Total Creatine Kinase C-Reactive Protein Total Protein Albumin CA 19-9 Antigen Folate PTH Intact Urine WBC (Auto) Urine Creatinine Urine Chloride Urine Total Protein Fluid Glucose Fluid Total Protein Vancomycin Trough Miscellaneous Test Crossmatch 06/05/18 06/05/18 06/06/18 12:10 16:01 06:39 WBC RBC Hgb Hct MCHC RDW Plt Count Lymph % (Auto) [place] % (Auto) Lymph # [place] # Seg Neutrophils % Seg Neuts % (Manual) Lymphocytes % (Manual) Seg Neutrophils # Seg Neutrophils # Man Lymphocytes # (Manual) PT INR APTT POC ABG pH POC ABG pCO2 POC ABG pO2 Sodium Potassium Chloride Carbon Dioxide BUN Creatinine Glucose POC Glucose 150 H 129 H 131 H Lactic Acid Calcium Phosphorus Magnesium Iron TIBC AST ALT Alkaline Phosphatase Lactate Dehydrogenase Total Creatine Kinase C-Reactive Protein Total Protein Albumin CA 19-9 Antigen Folate PTH Intact Urine WBC (Auto) Urine Creatinine Urine Chloride Urine Total Protein Fluid Glucose Fluid Total Protein Vancomycin Trough Miscellaneous Test Crossmatch 06/06/18 06/06/18 06/06/18 07:14 07:14 07:14 WBC 16.5 H RBC 2.84 L Hgb 8.1 L Hct 25.2 L MCHC RDW 16.4 H Plt Count 526 H Lymph % (Auto) 6.5 L [place] % (Auto) Lymph # 1.1 L [place] # 1.2 H Seg Neutrophils % 85.3 H Seg Neuts % (Manual) Lymphocytes % (Manual) Seg Neutrophils # 14.1 H Seg Neutrophils # Man Lymphocytes # (Manual) PT INR APTT POC ABG pH POC ABG pCO2 POC ABG pO2 Sodium Potassium Chloride 109.1 H Carbon Dioxide 21 L BUN 76 H Creatinine 3.5 H Glucose 111 H POC Glucose Lactic Acid Calcium 8.1 L Phosphorus Magnesium Iron TIBC AST ALT Alkaline Phosphatase Lactate Dehydrogenase Total Creatine Kinase C-Reactive Protein 4.70 H Total Protein Albumin CA 19-9 Antigen Folate PTH Intact Urine WBC (Auto) Urine Creatinine Urine Chloride Urine Total Protein Fluid Glucose Fluid Total Protein Vancomycin Trough Miscellaneous Test Crossmatch 06/06/18 06/06/18 06/06/18 11:15 18:00 23:58 WBC RBC Hgb Hct MCHC RDW Plt Count Lymph % (Auto) [place] % (Auto) Lymph # [place] # Seg Neutrophils % Seg Neuts % (Manual) Lymphocytes % (Manual) Seg Neutrophils # Seg Neutrophils # Man Lymphocytes # (Manual) PT INR APTT POC ABG pH POC ABG pCO2 POC ABG pO2 Sodium Potassium Chloride Carbon Dioxide BUN Creatinine Glucose POC Glucose 127 H 130 H 114 H Lactic Acid Calcium Phosphorus Magnesium Iron TIBC AST ALT Alkaline Phosphatase Lactate Dehydrogenase Total Creatine Kinase C-Reactive Protein Total Protein Albumin CA 19-9 Antigen Folate PTH Intact Urine WBC (Auto) Urine Creatinine Urine Chloride Urine Total Protein Fluid Glucose Fluid Total Protein Vancomycin Trough Miscellaneous Test Crossmatch 06/07/18 06/07/18 06/07/18 05:45 05:45 05:54 WBC 15.5 H RBC 2.60 L Hgb 7.4 L Hct 23.1 L MCHC RDW 16.5 H Plt Count 506 H Lymph % (Auto) 5.3 L [place] % (Auto) Lymph # 0.8 L [place] # 1.0 H Seg Neutrophils % 86.6 H Seg Neuts % (Manual) Lymphocytes % (Manual) Seg Neutrophils # 13.4 H Seg Neutrophils # Man Lymphocytes # (Manual) PT INR APTT POC ABG pH POC ABG pCO2 POC ABG pO2 Sodium Potassium Chloride 108.4 H Carbon Dioxide BUN 84 H Creatinine 3.5 H Glucose 119 H POC Glucose 114 H Lactic Acid Calcium 8.1 L Phosphorus 5.10 H Magnesium Iron TIBC AST ALT Alkaline Phosphatase Lactate Dehydrogenase Total Creatine Kinase C-Reactive Protein Total Protein Albumin CA 19-9 Antigen Folate PTH Intact Urine WBC (Auto) Urine Creatinine Urine Chloride Urine Total Protein Fluid Glucose Fluid Total Protein Vancomycin Trough Miscellaneous Test Crossmatch 06/07/18 06/08/18 06/08/18 12:15 05:05 05:24 WBC RBC Hgb Hct MCHC RDW Plt Count Lymph % (Auto) [place] % (Auto) Lymph # [place] # Seg Neutrophils % Seg Neuts % (Manual) Lymphocytes % (Manual) Seg Neutrophils # Seg Neutrophils # Man Lymphocytes # (Manual) PT INR APTT POC ABG pH POC ABG pCO2 POC ABG pO2 Sodium 148 H Potassium Chloride 112.4 H Carbon Dioxide BUN 89 H Creatinine 3.4 H Glucose 120 H POC Glucose 148 H 115 H Lactic Acid Calcium 7.9 L Phosphorus Magnesium Iron TIBC AST ALT Alkaline Phosphatase Lactate Dehydrogenase Total Creatine Kinase C-Reactive Protein Total Protein Albumin CA 19-9 Antigen Folate PTH Intact Urine WBC (Auto) Urine Creatinine Urine Chloride Urine Total Protein Fluid Glucose Fluid Total Protein Vancomycin Trough Miscellaneous Test Crossmatch 06/08/18 06/08/18 06/08/18 21:36 21:43 21:43 WBC RBC 2.98 L Hgb 8.8 L Hct 26.6 L MCHC RDW 16.7 H Plt Count 463 H Lymph % (Auto) 7.9 L [place] % (Auto) Lymph # 0.8 L [place] # Seg Neutrophils % 84.8 H Seg Neuts % (Manual) Lymphocytes % (Manual) Seg Neutrophils # 8.6 H Seg Neutrophils # Man Lymphocytes # (Manual) PT INR APTT POC ABG pH POC ABG pCO2 POC ABG pO2 Sodium Potassium Chloride Carbon Dioxide BUN Creatinine Glucose POC Glucose Lactic Acid Calcium Phosphorus Magnesium Iron TIBC AST ALT Alkaline Phosphatase Lactate Dehydrogenase 297 H Total Creatine Kinase C-Reactive Protein Total Protein Albumin CA 19-9 Antigen 57 H Folate PTH Intact Urine WBC (Auto) Urine Creatinine Urine Chloride Urine Total Protein Fluid Glucose Fluid Total Protein Vancomycin Trough Miscellaneous Test Crossmatch 06/09/18 06/09/18 06/09/18 00:05 05:34 05:50 WBC RBC Hgb Hct MCHC RDW Plt Count Lymph % (Auto) [place] % (Auto) Lymph # [place] # Seg Neutrophils % Seg Neuts % (Manual) Lymphocytes % (Manual) Seg Neutrophils # Seg Neutrophils # Man Lymphocytes # (Manual) PT INR APTT POC ABG pH POC ABG pCO2 POC ABG pO2 Sodium 153 H Potassium Chloride 117.3 H Carbon Dioxide BUN 84 H Creatinine 3.2 H Glucose 117 H POC Glucose 140 H 146 H Lactic Acid Calcium 7.9 L Phosphorus Magnesium Iron TIBC AST ALT Alkaline Phosphatase Lactate Dehydrogenase Total Creatine Kinase C-Reactive Protein Total Protein Albumin CA 19-9 Antigen Folate PTH Intact Urine WBC (Auto) Urine Creatinine Urine Chloride Urine Total Protein Fluid Glucose Fluid Total Protein Vancomycin Trough Miscellaneous Test Crossmatch 06/09/18 06/09/18 06/09/18 05:50 07:37 10:34 WBC RBC 2.32 L Hgb 6.8 L Hct 20.7 L MCHC RDW 16.7 H Plt Count Lymph % (Auto) [place] % (Auto) Lymph # [place] # Seg Neutrophils % Seg Neuts % (Manual) Lymphocytes % (Manual) Seg Neutrophils # Seg Neutrophils # Man Lymphocytes # (Manual) PT INR APTT POC ABG pH POC ABG pCO2 POC ABG pO2 Sodium 149 H Potassium Chloride 114.6 H Carbon Dioxide BUN 84 H Creatinine 3.1 H Glucose 137 H POC Glucose Lactic Acid Calcium 7.7 L Phosphorus Magnesium Iron TIBC AST ALT Alkaline Phosphatase Lactate Dehydrogenase Total Creatine Kinase C-Reactive Protein Total Protein Albumin CA 19-9 Antigen Folate PTH Intact Urine WBC (Auto) Urine Creatinine Urine Chloride Urine Total Protein Fluid Glucose Fluid Total Protein Vancomycin Trough Miscellaneous Test Flexitest 1 H Crossmatch 06/09/18 06/09/18 06/09/18 10:41 11:56 13:24 WBC RBC 2.43 L Hgb 7.2 L Hct 21.6 L MCHC RDW 16.8 H Plt Count Lymph % (Auto) [place] % (Auto) Lymph # [place] # Seg Neutrophils % Seg Neuts % (Manual) Lymphocytes % (Manual) Seg Neutrophils # Seg Neutrophils # Man Lymphocytes # (Manual) PT INR APTT POC ABG pH POC ABG pCO2 POC ABG pO2 Sodium Potassium Chloride Carbon Dioxide BUN Creatinine Glucose POC Glucose 141 H Lactic Acid Calcium Phosphorus Magnesium Iron TIBC AST ALT Alkaline Phosphatase Lactate Dehydrogenase Total Creatine Kinase C-Reactive Protein Total Protein Albumin CA 19-9 Antigen Folate PTH Intact Urine WBC (Auto) Urine Creatinine Urine Chloride Urine Total Protein Fluid Glucose Fluid Total Protein Vancomycin Trough Miscellaneous Test Crossmatch See Detail 06/09/18 06/09/18 06/10/18 18:18 23:13 05:26 WBC RBC Hgb Hct MCHC RDW Plt Count Lymph % (Auto) [place] % (Auto) Lymph # [place] # Seg Neutrophils % Seg Neuts % (Manual) Lymphocytes % (Manual) Seg Neutrophils # Seg Neutrophils # Man Lymphocytes # (Manual) PT INR APTT POC ABG pH POC ABG pCO2 POC ABG pO2 Sodium 148 H Potassium Chloride 114.7 H Carbon Dioxide 21 L BUN 79 H Creatinine 3.2 H Glucose 121 H POC Glucose 156 H 163 H Lactic Acid Calcium 7.8 L Phosphorus Magnesium 1.60 L Iron TIBC AST ALT Alkaline Phosphatase Lactate Dehydrogenase Total Creatine Kinase C-Reactive Protein Total Protein Albumin CA 19-9 Antigen Folate PTH Intact Urine WBC (Auto) Urine Creatinine Urine Chloride Urine Total Protein Fluid Glucose Fluid Total Protein Vancomycin Trough Miscellaneous Test Crossmatch 06/10/18 06/10/18 06/10/18 05:26 05:31 17:15 WBC 11.1 H RBC 3.07 L Hgb 9.1 L Hct 27.6 L D MCHC RDW 17.4 H Plt Count Lymph % (Auto) [place] % (Auto) Lymph # [place] # Seg Neutrophils % Seg Neuts % (Manual) Lymphocytes % (Manual) Seg Neutrophils # Seg Neutrophils # Man Lymphocytes # (Manual) PT INR APTT POC ABG pH POC ABG pCO2 POC ABG pO2 Sodium Potassium Chloride Carbon Dioxide BUN Creatinine Glucose POC Glucose 128 H Lactic Acid Calcium Phosphorus Magnesium Iron TIBC AST ALT Alkaline Phosphatase Lactate Dehydrogenase Total Creatine Kinase C-Reactive Protein 3.60 H Total Protein Albumin CA 19-9 Antigen Folate PTH Intact Urine WBC (Auto) Urine Creatinine Urine Chloride Urine Total Protein Fluid Glucose Fluid Total Protein Vancomycin Trough Miscellaneous Test Crossmatch 06/11/18 06/11/18 06/11/18 01:13 05:41 05:41 WBC 14.6 H RBC 3.40 L Hgb 9.8 L Hct 30.7 L MCHC RDW 18.1 H Plt Count Lymph % (Auto) [place] % (Auto) Lymph # [place] # Seg Neutrophils % Seg Neuts % (Manual) Lymphocytes % (Manual) Seg Neutrophils # Seg Neutrophils # Man Lymphocytes # (Manual) PT INR APTT POC ABG pH POC ABG pCO2 POC ABG pO2 Sodium Potassium Chloride 110.8 H Carbon Dioxide 18 L BUN 77 H Creatinine 3.0 H Glucose 116 H POC Glucose 126 H Lactic Acid Calcium 7.9 L Phosphorus Magnesium Iron TIBC AST ALT Alkaline Phosphatase Lactate Dehydrogenase Total Creatine Kinase C-Reactive Protein Total Protein Albumin CA 19-9 Antigen Folate PTH Intact Urine WBC (Auto) Urine Creatinine Urine Chloride Urine Total Protein Fluid Glucose Fluid Total Protein Vancomycin Trough Miscellaneous Test Crossmatch 06/11/18 06/11/18 06/11/18 06:20 07:41 07:41 WBC RBC Hgb Hct MCHC RDW Plt Count Lymph % (Auto) [place] % (Auto) Lymph # [place] # Seg Neutrophils % Seg Neuts % (Manual) Lymphocytes % (Manual) Seg Neutrophils # Seg Neutrophils # Man Lymphocytes # (Manual) PT INR APTT POC ABG pH POC ABG pCO2 POC ABG pO2 Sodium Potassium Chloride Carbon Dioxide BUN Creatinine Glucose POC Glucose 136 H Lactic Acid Calcium Phosphorus Magnesium Iron TIBC AST ALT Alkaline Phosphatase Lactate Dehydrogenase Total Creatine Kinase C-Reactive Protein Total Protein Albumin CA 19-9 Antigen Folate PTH Intact Urine WBC (Auto) 10.0 H Urine Creatinine 41.2 H Urine Chloride 49.2 L Urine Total Protein 142 H Fluid Glucose Fluid Total Protein Vancomycin Trough Miscellaneous Test Crossmatch Additional Studies: Ultrasound of chest reported bilateral moderate pleural effusiones. Allied health notes reviewed: nursing
[2018-06-11] MEDS ORDERED: TPN ADULT 2,016 ML IV SCH (20:00)
[2018-06-12] MEDS: HumuLIN R SUB-Q SCH ×4 (01:14→18:12)
[2018-06-12] MEDS: LOPRESSOR IV SCH ×3 (01:36→11:16)
[2018-06-12] MEDS: D5W 1,000 ML IV SCH ×2 (02:27→19:29)
[2018-06-12 04:39] LABS: Basophils # (Auto) 0.1 K/mm3 (0.0-0.1); Basophils % (Auto) 0.7 % (0.0-1.8); Eosinophils # (Auto) 0.1 K/mm3 (0.0-0.4); Eosinophils % (Auto) 0.5 % (0.0-4.3); Hematocrit 28.7 % (35.5-45.6); Hemoglobin 9.5 gm/dl (11.8-15.2); Lymphocytes # (Auto) 0.9 K/mm3 (1.2-5.4); Lymphocytes % (Auto) 8.1 % (13.4-35.0); Mean Corpuscular HGB Conc 33 % (32-34); Mean Corpuscular Hemoglobin 30 pg (28-32); Mean Corpuscular Volume 90 fl (84-94); Monocytes # (Auto) 0.7 K/mm3 (0.0-0.8); Monocytes % (Auto) 6.1 % (0.0-7.3); Platelet Count 326 K/mm3 (140-440); Red Blood Count 3.18 M/mm3 (3.65-5.03); Red Cell Distribution Width 18.5 % (13.2-15.2)
[2018-06-12 04:53] LABS: Albumin 1.7 g/dL (3.9-5); Calcium 7.8 mg/dL (8.4-10.2)
[2018-06-12] MEDS: APRESOLINE PO SCH ×3 (06:21→22:14)
[2018-06-12] MEDS: ZOSYN/NS 2.25 GM/50ML 2.25 GM/50 ML BAG IV SCH ×3 (06:22→22:25)
[2018-06-12] MEDS: FERROUS SULFATE PO SCH ×2 (09:42→22:14)
[2018-06-12] MEDS: FOLVITE PO SCH (09:43)
[2018-06-12] MEDS: HEPARIN SUB-Q SCH ×2 (09:43→22:15)
[2018-06-12] MEDS: PEPCID IV SCH (09:46)
--- NOTE | 2018-06-12 09:47 | Progress Note ---
Assessment and Plan 1. Acute kidney injury: Initial MARYLOU in the setting of bilateral hydronephrosis secondary to pelvic mass , now s/p bilateral nephrostomy. Recurrent Acute kidney injury likely ATN now. Patient required urgent hemodialysis due to worsening renal function and persistent hyperkalemia. Last dialyzed on 06/02/18. BUN and Creatinine level is slowly improving. Renal prognosis is guarded. On PPN / TPN. 2. Electrolytes: Hypernatremia, IV D5W. Monitor. 3. Bowel obstruction: S/p ostomy. 4. Bilateral hydronephrosis: Secondary to pelvic mass. S/p bilateral nephrostomy. S/p Cysto and drainage of abscess. 5. Respiratory failure: S/p extubated. 6. Hypertension: On Clonidine patch 0.6 mg / 24 hr and IV Metoprolol. Start on PO Labetalol. Monitor BP. 7. Sepsis: Complicated UTI and pneumonia. 8. Anemia. 9. 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 Await LTAC placement. Subjective Date of service: 06/12/18 Principal diagnosis: sq ca - pelvic mass Interval history: Patient was seen and examined at the bedside. On clear liquid diet. Objective - Vital Signs Vital signs: Vital Signs - 12hr 06/11/18 06/11/18 06/12/18 22:00 23:57 00:00 Temperature 98.1 F Pulse Rate 71 86 86 Respiratory 20 18 Rate Blood Pressure 170/108 O2 Sat by Pulse 95 95 Oximetry 06/12/18 06/12/18 06/12/18 01:36 05:26 06:22 Temperature 98.0 F Pulse Rate 77 74 80 Respiratory 18 Rate Blood Pressure 170/108 174/109 174/109 O2 Sat by Pulse 97 Oximetry 06/12/18 08:53 Temperature 98.6 F Pulse Rate 89 Respiratory 18 Rate Blood Pressure 184/114 O2 Sat by Pulse 97 Oximetry - General Appearance General appearance: well-developed, appears stated age, other (not in distress) EENT: ATNC, PERRL, mucous membranes moist, hearing intact Neck: supple Respiratory: Present: Clear to Ascultation Cardiology: regular, S1S2, no murmurs Gastrointestinal: normoactive bowel sounds, no tenderness, other (ostomy, drain and bilateral nephrostomy noted) Integumentary: no rash Neurologic: no focal deficit, no asterixis Musculoskeletal: other (no edema) Psychiatric: cooperative - Lab 06/12/18 04:12 06/12/18 04:12 Most recent lab results Calcium 7.8 mg/dL (8.4-10.2) L 06/12/18 04:12 Phosphorus 3.50 mg/dL (2.5-4.5) 06/11/18 05:41 Magnesium 2.10 mg/dL (1.7-2.3) 06/11/18 05:41 Urine Creatinine 41.2 mg/dL (0.1-20.0) H 06/11/18 07:41 Urine Sodium 79 mmol/L 06/11/18 07:41 Urine Total Protein 142 mg/dL (5-11.8) H 06/11/18 07:41
--- NOTE | 2018-06-12 10:57 | Progress Note ---
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 Continue pain control PRN Bilateral pneumonia (possibly aspiration) Monitor respiratory status Continue Nebs PRN Continue antibiotic Sepsis Continue cefepime, metrodazole Acute kidney injury (obstructive uropathy vs contrast nephropathy) HD per nephrology Continue to monitor BMP and kidney fuction Had bilateral nephrostomy tubes placed 05/14/[address] Freeman. Acute deep venous thrombosis Anticoagulation on hold because of anemia, bilateral nephrostomy tubes and abdominal issues Moderate to severe protein calorie malnutrition Continue tube feeding Hypokalemia Potassium and mag replacement as needed Anemia likely due to Chronic illness Plan is for LTAC. had lengthy family meeting on 06/09/18. patient is medically stable to go to LTAC. History Interval history: feels better, less abdominal pain, No fever Hospitalist Physical - Physical exam Narrative exam: GEN:Not in acute distress, lying in bed, very ill looking, HEENT: Normocephalic, atraumatic, Neck: supple, No JVD Lungs: Clear to auscultation bilaterally, no crackles Heart:S1 and S2 regular no murmurs, rubs or gallop Abd:soft, mild tender, ostomy, bilat nephrostomy tubes, bowel sounds present Ext: No edema, clubbing or cyanosis Neuro: Awake, alert,oriented x 3, moves all ext - Constitutional Vitals: Temp Pulse Resp BP Pulse Ox 98.6 F 89 18 184/114 97 06/12/18 08:53 06/12/18 08:53 06/12/18 08:53 06/12/18 08:53 06/12/18 08:53 General appearance: Present: no acute distress Results - Labs CBC & Chem 7: 06/12/18 04:12 06/12/18 04:12 Labs: Laboratory Last Values WBC 10.8 K/mm3 (4.5-11.0) 06/12/18 04:12 RBC 3.18 M/mm3 (3.65-5.03) L 06/12/18 04:12 Hgb 9.5 gm/dl (11.8-15.2) L 06/12/18 04:12 Hct 28.7 % (35.5-45.6) L 06/12/18 04:12 MCV 90 fl (84-94) 06/12/18 04:12 MCH 30 pg (28-32) 06/12/18 04:12 MCHC 33 % (32-34) 06/12/18 04:12 RDW 18.5 % (13.2-15.2) H 06/12/18 04:12 Plt Count 326 K/mm3 (140-440) 06/12/18 04:12 Lymph % (Auto) 8.1 % (13.4-35.0) L 06/12/18 04:12 [place] % (Auto) 6.1 % (0.0-7.3) 06/12/18 04:12 Eos % (Auto) 0.5 % (0.0-4.3) 06/12/18 04:12 Baso % (Auto) 0.7 % (0.0-1.8) 06/12/18 04:12 Lymph # 0.9 K/mm3 (1.2-5.4) L 06/12/18 04:12 [place] # 0.7 K/mm3 (0.0-0.8) 06/12/18 04:12 Eos # 0.1 K/mm3 (0.0-0.4) 06/12/18 04:12 Baso # 0.1 K/mm3 (0.0-0.1) 06/12/18 04:12 Add Manual Diff Complete 05/31/18 04:50 Total Counted 100 05/31/18 04:50 Seg Neutrophils % 84.6 % (40.0-70.0) H 06/12/18 04:12 Seg Neuts % (Manual) 91.0 % (40.0-70.0) H 05/31/18 04:50 Band Neutrophils % 2.0 % 05/31/18 04:50 Lymphocytes % (Manual) 2.0 % (13.4-35.0) L 05/31/18 04:50 Reactive Lymphs % (Man) 0 % 05/31/18 04:50 Monocytes % (Manual) 2.0 % (0.0-7.3) 05/31/18 04:50 Eosinophils % (Manual) 1.0 % (0.0-4.3) 05/31/18 04:50 Basophils % (Manual) 0 % (0.0-1.8) 05/31/18 04:50 Metamyelocytes % 1.0 % 05/31/18 04:50 Myelocytes % 1.0 % 05/31/18 04:50 Promyelocytes % 0 % 05/31/18 04:50 Blast Cells % 0 % 05/31/18 04:50 Nucleated RBC % Not Reportable 05/31/18 04:50 Seg Neutrophils # 9.1 K/mm3 (1.8-7.7) H 06/12/18 04:12 Seg Neutrophils # Man 17.0 K/mm3 (1.8-7.7) H 05/31/18 04:50 Band Neutrophils # 0.4 K/mm3 05/31/18 04:50 Lymphocytes # (Manual) 0.4 K/mm3 (1.2-5.4) L 05/31/18 04:50 Abs React Lymphs (Man) 0.0 K/mm3 05/31/18 04:50 Monocytes # (Manual) 0.4 K/mm3 (0.0-0.8) 05/31/18 04:50 Eosinophils # (Manual) 0.2 K/mm3 (0.0-0.4) 05/31/18 04:50 Basophils # (Manual) 0.0 K/mm3 (0.0-0.1) 05/31/18 04:50 Metamyelocytes # 0.2 K/mm3 05/31/18 04:50 Myelocytes # 0.2 K/mm3 05/31/18 04:50 Promyelocytes # 0.0 K/mm3 05/31/18 04:50 Blast Cells # 0.0 K/mm3 05/31/18 04:50 WBC Morphology Not Reportable 05/31/18 04:50 Hypersegmented Neuts Not Reportable 05/31/18 04:50 Hyposegmented Neuts Not Reportable 05/31/18 04:50 Hypogranular Neuts Not Reportable 05/31/18 04:50 Smudge Cells Not Reportable 05/31/18 04:50 Toxic Granulation Not Reportable 05/31/18 04:50 Toxic Vacuolation Not Reportable 05/31/18 04:50 Dohle Bodies Not Reportable 05/31/18 04:50 Pelger-Huet Anomaly Not Reportable 05/31/18 04:50 Mahesh Rods Not Reportable 05/31/18 04:50 Platelet Estimate Appears normal 05/31/18 04:50 Clumped Platelets Not Reportable 05/31/18 04:50 Plt Clumps, EDTA Not Reportable 05/31/18 04:50 Large Platelets Not Reportable 05/31/18 04:50 Giant Platelets Not Reportable 05/31/18 04:50 Platelet Satelliting Not Reportable 05/31/18 04:50 Plt Morphology Comment Not Reportable 05/31/18 04:50 RBC Morphology Not Reportable 05/31/18 04:50 Dimorphic RBCs Not Reportable 05/31/18 04:50 Polychromasia Not Reportable 05/31/18 04:50 Hypochromasia Few 05/31/18 04:50 Poikilocytosis Not Reportable 05/31/18 04:50 Anisocytosis 1+ 05/31/18 04:50 Microcytosis Few 05/31/18 04:50 Macrocytosis Not Reportable 05/31/18 04:50 Spherocytes Not Reportable 05/31/18 04:50 Pappenheimer Bodies Not Reportable 05/31/18 04:50 Sickle Cells Not Reportable 05/31/18 04:50 Target Cells Rare 05/31/18 04:50 Tear Drop Cells Not Reportable 05/31/18 04:50 Ovalocytes 1+ 05/31/18 04:50 Helmet Cells Not Reportable 05/31/18 04:50 [place] Bodies Not Reportable 05/31/18 04:50 [place] Rings Not Reportable 05/31/18 04:50 [place] Cells Not Reportable 05/31/18 04:50 Bite Cells Not Reportable 05/31/18 04:50 Crenated Cell Not Reportable 05/31/18 04:50 Elliptocytes Not Reportable 05/31/18 04:50 Acanthocytes (Spur) Not Reportable 05/31/18 04:50 Rouleaux Not Reportable 05/31/18 04:50 Hemoglobin C Crystals Not Reportable 05/31/18 04:50 Schistocytes Not Reportable 05/31/18 04:50 Malaria parasites Not Reportable 05/31/18 04:50 Mk Bodies Not Reportable 05/31/18 04:50 Hem Pathologist Commnt No 05/31/18 04:50 PT 17.1 Sec. (12.2-14.9) H 06/03/18 09:18 INR 1.34 (0.87-1.13) H 06/03/18 09:18 APTT 40.0 Sec. (24.2-36.6) H 05/23/18 09:03 POC ABG pH 7.362 (7.35-7.45) 05/31/18 09:58 POC ABG pCO2 36.4 (35-45) 05/31/18 09:58 POC ABG pO2 101 (80-105) 05/31/18 09:58 POC ABG HCO3 20.7 05/31/18 09:58 POC ABG Total CO2 22 05/31/18 09:58 POC ABG O2 Sat 98 05/31/18 09:58 POC ABG Base Excess -5 05/31/18 09:58 FiO2 40 % 05/31/18 09:58 Sodium 140 mmol/L (137-145) 06/12/18 04:12 Potassium 4.1 mmol/L (3.6-5.0) 06/12/18 04:12 Chloride 108.5 mmol/L (98-107) H 06/12/18 04:12 Carbon Dioxide 21 mmol/L (22-30) L 06/12/18 04:12 Anion Gap 15 mmol/L 06/12/18 04:12 BUN 72 mg/dL (9-20) H 06/12/18 04:12 Creatinine 3.0 mg/dL (0.8-1.5) H 06/12/18 04:12 Estimated GFR 27 ml/min 06/12/18 04:12 BUN/Creatinine Ratio 24 % 06/12/18 04:12 Glucose 122 mg/dL (75-100) H 06/12/18 04:12 POC Glucose 129 (70-105) H 06/12/18 06:30 Hemoglobin A1c 5.7 % (4-6) 05/14/18 05:05 Lactic Acid 3.80 mmol/L (0.7-2.0) H* 05/26/18 11:00 Calcium 7.8 mg/dL (8.4-10.2) L 06/12/18 04:12 Phosphorus 3.50 mg/dL (2.5-4.5) 06/11/18 05:41 Magnesium 2.10 mg/dL (1.7-2.3) 06/11/18 05:41 Iron 24 ug/dL (49-181) L 05/16/18 07:02 TIBC 160 mcg/dL (250-450) L 05/16/18 07:02 Ferritin 325.8 ng/mL (13.0-400.0) 05/16/18 07:02 Total Bilirubin 0.30 mg/dL (0.1-1.2) 06/12/18 04:12 AST 45 units/L (5-40) H 06/12/18 04:12 ALT 29 units/L (7-56) 06/12/18 04:12 Alkaline Phosphatase 200 units/L (35-129) H 06/12/18 04:12 Lactate Dehydrogenase 297 units/L (91-180) H 06/08/18 21:36 Total Creatine Kinase 34 units/L (55-170) L 06/12/18 04:12 CK-MB (CK-2) 2.3 ng/mL (0.0-4.0) 05/25/18 22:46 CK-MB (CK-2) Rel Index 1.4 (0-4) 05/25/18 22:46 C-Reactive Protein 3.60 mg/dL (0.00-1.30) H 06/10/18 17:15 Total Protein 7.3 g/dL (6.3-8.2) 06/12/18 04:12 Albumin 1.7 g/dL (3.9-5) L 06/12/18 04:12 Albumin/Globulin Ratio 0.3 % 06/12/18 04:12 Triglycerides 112 mg/dL (2-149) 06/03/18 03:31 CA 19-9 Antigen 57 U/mL (<34) H 06/08/18 21:43 Prostate Specific Ag 0.96 ng/mL (0.00-4.00) 05/14/18 13:29 Vitamin B12 359.2 pg/mL (211-911) 05/16/18 07:02 Folate 5.39 ng/mL (7.3-26.0) L 05/16/18 07:02 TSH 3.180 mlU/mL (0.270-4.200) 05/14/18 05:05 PTH Intact 65.37 pg/mL (15-65) H 05/14/18 05:05 Urine Color Yellow (Yellow) 06/11/18 07:41 Urine Turbidity Slightly-cloudy (Clear) 06/11/18 07:41 Urine pH 6.0 (5.0-7.0) 06/11/18 07:41 Ur Specific [place] 1.011 (1.003-1.030) 06/11/18 07:41 Urine Protein 100 mg/dl mg/dL (Negative) 06/11/18 07:41 Urine Glucose (UA) 150 mg/dL (Negative) 06/11/18 07:41 Urine Ketones Neg mg/dL (Negative) 06/11/18 07:41 Urine Blood Sm (Negative) 06/11/18 07:41 Urine Nitrite Neg (Negative) 06/11/18 07:41 Urine Bilirubin Neg (Negative) 06/11/18 07:41 Urine Urobilinogen < 2.0 mg/dL (<2.0) 06/11/18 07:41 Ur Leukocyte Esterase Sm (Negative) 06/11/18 07:41 Urine WBC (Auto) 10.0 /HPF (0.0-6.0) H 06/11/18 07:41 Urine RBC (Auto) 5.0 /HPF (0.0-6.0) 06/11/18 07:41 U Epithel Cells (Auto) 1.0 /HPF (0-13.0) 06/11/18 07:41 Urine Bacteria (Auto) 1+ /HPF (Negative) 06/11/18 07:41 Urine WBC Clumps Few /HPF 05/13/18 19:39 Urine Mucus Few /HPF 06/11/18 07:41 Ur Yeast w [place] Few /HPF 06/11/18 07:41 Urine Yeast ([place]) Few /HPF 06/11/18 07:41 Urine Creatinine 41.2 mg/dL (0.1-20.0) H 06/11/18 07:41 Urine Sodium 79 mmol/L 06/11/18 07:41 Urine Potassium 13.27 mmol/L 06/11/18 07:41 Urine Chloride 49.2 mmolL (110-250) L 06/11/18 07:41 Urine Total Protein 142 mg/dL (5-11.8) H 06/11/18 07:41 Fluid Type Ascitic 06/03/18 Unknown Fluid Color Yellow 06/03/18 Unknown Fluid Appearance Cloudy 06/03/18 Unknown Fluid WBC 21701 /mm3 06/03/18 Unknown Fluid RBC 9 /mm3 06/03/18 Unknown Fluid Seg Neutrophils 98.0 % 06/03/18 Unknown Fluid Lymphocytes 2.0 % 06/03/18 Unknown Fluid Reactive Lymphs 0 % 06/03/18 Unknown Fluid Monocytes 0 % 06/03/18 Unknown Fluid Eosinophils 0 % 06/03/18 Unknown Fluid Basophils 0 % 06/03/18 Unknown Fluid Glucose 10 mg/dL (40-70) L 06/03/18 Unknown Fluid Total Protein 3.7 (15.0-45.0) L 06/03/18 Unknown Fluid Albumin 0.8 g/dL 06/03/18 Unknown Fluid LDH > 59045 06/03/18 Unknown Fluid Amylase 126 06/03/18 Unknown Vancomycin Trough 25.1 ug/mL (5.0-20.0) H 05/25/18 22:46 Random Vancomycin 34.3 ug/mL (0-40.0) 05/26/18 11:01 Urine Opiates Screen Presumptive negative 06/11/18 07:41 Urine Methadone Screen Presumptive negative 06/11/18 07:41 Ur Barbiturates Screen Presumptive negative 06/11/18 07:41 Ur Phencyclidine Scrn Presumptive negative 06/11/18 07:41 Ur Amphetamines Screen Presumptive negative 06/11/18 07:41 U Benzodiazepines Scrn Presumptive negative 06/11/18 07:41 Urine Cocaine Screen Presumptive negative 06/11/18 07:41 U Marijuana (THC) Screen Presumptive negative 06/11/18 07:41 Drugs of Abuse Note Disclamer 06/11/18 07:41 ZEUS Screen Negative (Negative) 05/14/18 05:05 Proteinase 3 (PR3) Ab <1.0 AI (<1.0) 05/14/18 05:05 Myeloperoxidase Ab <1.0 AI (<1.0) 05/14/18 05:05 Complement C3 147 mg/dL (82-185) 05/14/18 05:05 Complement C4 45 mg/dL (15-53) 05/14/18 05:05 Hepatitis A IgM Ab Nonreactive (NonReactive) 05/27/18 13:41 Hep Bs Antigen Non-reactive (Negative) 05/27/18 13:41 Hep B Core IgM Ab Non-reactive (NonReactive) 05/27/18 13:41 Hepatitis C Antibody Non-reactive (NonReactive) 05/27/18 13:41 Miscellaneous Test Flexitest 1 H 06/09/18 07:37 Blood Type O POSITIVE 06/09/18 13:24 Antibody Screen Negative 06/09/18 13:24 Crossmatch See Detail 06/09/18 13:24
[2018-06-12] MEDS: NORMODYNE PO SCH ×2 (16:11→22:14)
--- NOTE | 2018-06-12 19:24 | Progress Note ---
Assessment and Plan Patient sleeping at this time on 3 litres O2.No acute respiratory distress.O2 saturation 95%. - Patient Problems (1) Sepsis Current Visit: Yes Status: Acute Plan to address problem: Patient is on zosyn. (2) Acute renal failure Current Visit: Yes Status: Acute Qualifiers: Acute renal failure type: unspecified Qualified Code(s): N17.9 - Acute kidney failure, unspecified Plan to address problem: Management as per nephrology. (3) Hypertensive urgency, malignant Current Visit: Yes Status: Acute Plan to address problem: Management as per primary care. (4) Intestinal obstruction Current Visit: Yes Status: Acute Plan to address problem: Management as per primary care and surgery. (5) Pelvic mass in male Current Visit: Yes Status: Acute Plan to address problem: Followed by urology. (6) UTI (urinary tract infection) Current Visit: Yes Status: Acute Plan to address problem: Patient is on Zosyn. (7) Pneumonia involving left lung Current Visit: Yes Status: Acute Plan to address problem: Patient is on zosyn. (8) Bilateral pleural effusion Current Visit: Yes Status: Acute Plan to address problem: Ultrasound of chest reported moderate bilateral pleural effusion. Patient sleeping at this time. Discuss with the patient tomorrow about thoracentesis. Subjective Date of service: 06/12/18 Principal diagnosis: sq ca - pelvic mass Interval history: Patient sleeping at this time on 3 litres O2.No acute respiratory distress.O2 saturation 95%. Objective Vital Signs - 12hr 06/12/18 06/12/18 06/12/18 08:53 10:00 11:16 Temperature 98.6 F Pulse Rate 89 72 71 Pulse Rate [ 72 Apical] Pulse Rate [ 72 Left Dorsalis Pedis] Pulse Rate [ 72 Left Radial] Pulse Rate [ 72 Right Dorsalis Pedis] Pulse Rate [ 72 Right Radial] Respiratory 18 22 Rate Blood Pressure 184/114 166/100 Blood Pressure [Left] O2 Sat by Pulse 97 97 Oximetry 06/12/18 06/12/18 06/12/18 12:00 15:58 16:11 Temperature 98.1 F Pulse Rate 72 77 88 Pulse Rate [ Apical] Pulse Rate [ Left Dorsalis Pedis] Pulse Rate [ Left Radial] Pulse Rate [ Right Dorsalis Pedis] Pulse Rate [ Right Radial] Respiratory 20 Rate Blood Pressure 163/100 163/100 Blood Pressure 151/100 [Left] O2 Sat by Pulse 95 Oximetry 06/12/18 18:22 Temperature Pulse Rate 73 Pulse Rate [ Apical] Pulse Rate [ Left Dorsalis Pedis] Pulse Rate [ Left Radial] Pulse Rate [ Right Dorsalis Pedis] Pulse Rate [ Right Radial] Respiratory Rate Blood Pressure Blood Pressure 138/86 [Left] O2 Sat by Pulse Oximetry Constitutional: no acute distress, asleep, other (chronically ill looking middle aged AAM, normocephalic and atraumatic, ) Eyes: non-icteric ENT: oropharynx moist Neck: supple, no lymphadenopathy, no JVD, other (no thyromegaly) Effort: mildly labored Ascultation: Bilateral: diminished breath sounds, rhonchi (scant in bases) Percussion: Bilateral: not dull Cardiovascular: regular rate and rhythm, other (No R/M) Gastrointestinal: hypoactive bowel sounds, soft, tender (mild), other (Distended ; No palpable HSM, bilateral nephrostomy tubes,) Integumentary: other (femoral vascath) Extremities: no cyanosis, no edema, pulses normal, no ischemia or petechiae Neurologic: normal mental status, non-focal exam, pupils equal and round, other (weak) Psychiatric: mood appropriate, affect normal CBC and BMP: 06/12/18 04:12 06/12/18 04:12 ABG, PT/INR, D-dimer: ABG POC ABG pH 7.362 (7.35-7.45) 05/31/18 09:58 POC ABG pCO2 36.4 (35-45) 05/31/18 09:58 POC ABG pO2 101 (80-105) 05/31/18 09:58 POC ABG HCO3 20.7 05/31/18 09:58 POC ABG Total CO2 22 05/31/18 09:58 POC ABG O2 Sat 98 05/31/18 09:58 PT/INR, D-dimer PT 17.1 Sec. (12.2-14.9) H 06/03/18 09:18 INR 1.34 (0.87-1.13) H 06/03/18 09:18 Abnormal lab findings: Abnormal Labs 05/13/18 05/13/18 05/13/18 04:27 04:27 19:39 WBC RBC 3.13 L Hgb 9.4 L Hct 26.8 L MCHC 35 H RDW Plt Count Lymph % (Auto) Mineral % (Auto) 9.6 H Lymph # Mineral # Seg Neutrophils % Seg Neuts % (Manual) Lymphocytes % (Manual) Seg Neutrophils # Seg Neutrophils # Man Lymphocytes # (Manual) PT INR APTT POC ABG pH POC ABG pCO2 POC ABG pO2 Sodium 132 L Potassium 5.5 H Chloride 94.1 L Carbon Dioxide 19 L BUN 72 H Creatinine 14.4 H Glucose POC Glucose Lactic Acid Calcium Phosphorus Magnesium Iron TIBC AST ALT Alkaline Phosphatase Lactate Dehydrogenase Total Creatine Kinase C-Reactive Protein Total Protein Albumin 2.8 L CA 19-9 Antigen Folate PTH Intact Urine WBC (Auto) Urine Creatinine 66.0 H Urine Chloride 27.8 L Urine Total Protein 24 H Fluid Glucose Fluid Total Protein Vancomycin Trough Miscellaneous Test Crossmatch 05/13/18 05/14/18 05/14/18 20:00 05:05 05:05 WBC RBC Hgb Hct MCHC RDW Plt Count Lymph % (Auto) Mineral % (Auto) Lymph # Mineral # Seg Neutrophils % Seg Neuts % (Manual) Lymphocytes % (Manual) Seg Neutrophils # Seg Neutrophils # Man Lymphocytes # (Manual) PT INR APTT POC ABG pH POC ABG pCO2 POC ABG pO2 Sodium 132 L 131 L Potassium 5.2 H 5.8 H Chloride 93.0 L 95.6 L Carbon Dioxide 19 L 20 L BUN 74 H 81 H Creatinine 15.0 H 16.6 H Glucose 134 H 127 H POC Glucose Lactic Acid Calcium 8.2 L 7.9 L Phosphorus 6.30 H Magnesium Iron TIBC AST ALT Alkaline Phosphatase Lactate Dehydrogenase Total Creatine Kinase 236 H C-Reactive Protein Total Protein Albumin CA 19-9 Antigen Folate PTH Intact 65.37 H Urine WBC (Auto) Urine Creatinine Urine Chloride Urine Total Protein Fluid Glucose Fluid Total Protein Vancomycin Trough Miscellaneous Test Crossmatch 05/14/18 05/14/18 05/14/18 09:28 10:56 13:29 WBC RBC Hgb Hct MCHC RDW Plt Count Lymph % (Auto) Mineral % (Auto) Lymph # Min[place] # Seg Neutrophils % Seg Neuts % (Manual) Lymphocytes % (Manual) Seg Neutrophils # Seg Neutrophils # Man Lymphocytes # (Manual) PT INR APTT 38.2 H POC ABG pH POC ABG pCO2 POC ABG pO2 Sodium Potassium Chloride Carbon Dioxide BUN Creatinine Glucose POC Glucose 127 H 126 H Lactic Acid Calcium Phosphorus Magnesium Iron TIBC AST ALT Alkaline Phosphatase Lactate Dehydrogenase Total Creatine Kinase C-Reactive Protein Total Protein Albumin CA 19-9 Antigen Folate PTH Intact Urine WBC (Auto) Urine Creatinine Urine Chloride Urine Total Protein Fluid Glucose Fluid Total Protein Vancomycin Trough Miscellaneous Test Crossmatch 05/15/18 05/15/18 05/16/18 08:06 08:06 07:02 WBC RBC 2.84 L 2.74 L Hgb 8.5 L 8.5 L Hct 24.2 L 23.5 L MCHC 35 H 36 H RDW Plt Count Lymph % (Auto) Mineral % (Auto) 10.4 H 11.0 H Lymph # 1.1 L Mineral # 0.9 H Seg Neutrophils % 72.6 H Seg Neuts % (Manual) Lymphocytes % (Manual) Seg Neutrophils # Seg Neutrophils # Man Lymphocytes # (Manual) PT INR APTT POC ABG pH POC ABG pCO2 POC ABG pO2 Sodium Potassium Chloride Carbon Dioxide 19 L BUN 66 H Creatinine 12.0 H Glucose 115 H POC Glucose Lactic Acid Calcium 8.1 L Phosphorus Magnesium Iron TIBC AST ALT Alkaline Phosphatase Lactate Dehydrogenase Total Creatine Kinase C-Reactive Protein Total Protein Albumin CA 19-9 Antigen Folate PTH Intact Urine WBC (Auto) Urine Creatinine Urine Chloride Urine Total Protein Fluid Glucose Fluid Total Protein Vancomycin Trough Miscellaneous Test Crossmatch 05/16/18 05/16/18 05/17/18 07:02 07:02 05:08 WBC RBC 2.78 L Hgb 8.2 L Hct 23.9 L MCHC RDW Plt Count Lymph % (Auto) Mineral % (Auto) 13.9 H Lymph # Mineral # 0.9 H Seg Neutrophils % Seg Neuts % (Manual) Lymphocytes % (Manual) Seg Neutrophils # Seg Neutrophils # Man Lymphocytes # (Manual) PT INR APTT POC ABG pH POC ABG pCO2 POC ABG pO2 Sodium Potassium Chloride Carbon Dioxide BUN 28 H Creatinine 2.4 H D Glucose POC Glucose Lactic Acid Calcium 8.3 L Phosphorus Magnesium 1.50 L Iron 24 L TIBC 160 L AST ALT Alkaline Phosphatase Lactate Dehydrogenase Total Creatine Kinase C-Reactive Protein Total Protein Albumin CA 19-9 Antigen Folate 5.39 L PTH Intact Urine WBC (Auto) Urine Creatinine Urine Chloride Urine Total Protein Fluid Glucose Fluid Total Protein Vancomycin Trough Miscellaneous Test Crossmatch 05/17/18 05/18/18 05/18/18 05:08 05:57 05:57 WBC RBC 2.79 L Hgb 8.3 L Hct 24.0 L MCHC 35 H RDW Plt Count Lymph % (Auto) Mineral % (Auto) 11.8 H Lymph # Mineral # 0.9 H Seg Neutrophils % Seg Neuts % (Manual) Lymphocytes % (Manual) Seg Neutrophils # Seg Neutrophils # Man Lymphocytes # (Manual) PT INR APTT POC ABG pH POC ABG pCO2 POC ABG pO2 Sodium Potassium Chloride Carbon Dioxide BUN Creatinine Glucose POC Glucose Lactic Acid Calcium 7.7 L 8.0 L Phosphorus Magnesium 1.60 L Iron TIBC AST ALT Alkaline Phosphatase Lactate Dehydrogenase Total Creatine Kinase C-Reactive Protein Total Protein Albumin CA 19-9 Antigen Folate PTH Intact Urine WBC (Auto) Urine Creatinine Urine Chloride Urine Total Protein Fluid Glucose Fluid Total Protein Vancomycin Trough Miscellaneous Test Crossmatch 05/19/18 05/19/18 05/20/18 05:33 05:33 05:38 WBC RBC 2.95 L Hgb 8.8 L Hct 25.8 L MCHC RDW Plt Count Lymph % (Auto) 10.1 L [place] % (Auto) Lymph # 1.1 L [place] # Seg Neutrophils % 85.2 H Seg Neuts % (Manual) Lymphocytes % (Manual) Seg Neutrophils # 9.0 H Seg Neutrophils # Man Lymphocytes # (Manual) PT INR APTT POC ABG pH POC ABG pCO2 POC ABG pO2 Sodium 135 L Potassium Chloride Carbon Dioxide BUN Creatinine Glucose 132 H POC Glucose Lactic Acid Calcium 7.8 L 8.3 L Phosphorus Magnesium 1.40 L Iron TIBC AST ALT Alkaline Phosphatase Lactate Dehydrogenase Total Creatine Kinase C-Reactive Protein Total Protein Albumin CA 19-9 Antigen Folate PTH Intact Urine WBC (Auto) Urine Creatinine Urine Chloride Urine Total Protein Fluid Glucose Fluid Total Protein Vancomycin Trough Miscellaneous Test Crossmatch 05/21/18 05/21/18 05/22/18 04:46 15:30 06:49 WBC 20.0 H RBC 2.70 L Hgb 7.8 L Hct 23.3 L MCHC RDW Plt Count Lymph % (Auto) Mineral % (Auto) Lymph # Mineral # Seg Neutrophils % Seg Neuts % (Manual) 85.0 H Lymphocytes % (Manual) 4.0 L Seg Neutrophils # Seg Neutrophils # Man 17.0 H Lymphocytes # (Manual) 0.8 L PT INR APTT POC ABG pH POC ABG pCO2 POC ABG pO2 Sodium 135 L Potassium 3.5 L Chloride Carbon Dioxide 21 L BUN 22 H Creatinine Glucose POC Glucose Lactic Acid Calcium 8.1 L Phosphorus Magnesium Iron TIBC AST ALT Alkaline Phosphatase Lactate Dehydrogenase Total Creatine Kinase C-Reactive Protein Total Protein Albumin CA 19-9 Antigen Folate PTH Intact Urine WBC (Auto) 28.0 H Urine Creatinine Urine Chloride Urine Total Protein Fluid Glucose Fluid Total Protein Vancomycin Trough Miscellaneous Test Crossmatch 05/22/18 05/22/18 05/23/18 06:49 11:23 09:03 WBC RBC Hgb Hct MCHC RDW Plt Count Lymph % (Auto) Mineral % (Auto) Lymph # Mineral # Seg Neutrophils % Seg Neuts % (Manual) Lymphocytes % (Manual) Seg Neutrophils # Seg Neutrophils # Man Lymphocytes # (Manual) PT INR APTT POC ABG pH POC ABG pCO2 POC ABG pO2 Sodium 134 L Potassium 3.5 L Chloride Carbon Dioxide 21 L BUN 35 H 36 H Creatinine 1.7 H Glucose 107 H POC Glucose Lactic Acid Calcium 7.9 L Phosphorus Magnesium 2.50 H Iron TIBC AST ALT Alkaline Phosphatase Lactate Dehydrogenase Total Creatine Kinase C-Reactive Protein Total Protein Albumin CA 19-9 Antigen Folate PTH Intact Urine WBC (Auto) Urine Creatinine Urine Chloride Urine Total Protein Fluid Glucose Fluid Total Protein Vancomycin Trough Miscellaneous Test Crossmatch See Detail 05/23/18 05/23/18 05/23/18 09:03 09:03 17:34 WBC 26.3 H RBC 3.57 L Hgb 10.4 L Hct 31.1 L D MCHC RDW Plt Count Lymph % (Auto) Mineral % (Auto) Lymph # [place] # Seg Neutrophils % Seg Neuts % (Manual) Lymphocytes % (Manual) Seg Neutrophils # Seg Neutrophils # Man Lymphocytes # (Manual) PT 18.3 H INR 1.43 H APTT 40.0 H POC ABG pH POC ABG pCO2 POC ABG pO2 Sodium Potassium Chloride Carbon Dioxide BUN Creatinine Glucose POC Glucose 108 H Lactic Acid Calcium Phosphorus Magnesium Iron TIBC AST ALT Alkaline Phosphatase Lactate Dehydrogenase Total Creatine Kinase C-Reactive Protein Total Protein Albumin CA 19-9 Antigen Folate PTH Intact Urine WBC (Auto) Urine Creatinine Urine Chloride Urine Total Protein Fluid Glucose Fluid Total Protein Vancomycin Trough Miscellaneous Test Crossmatch 05/23/18 05/24/18 05/24/18 21:14 04:43 08:04 WBC RBC Hgb Hct MCHC RDW Plt Count Lymph % (Auto) Mineral % (Auto) Lymph # [place] # Seg Neutrophils % Seg Neuts % (Manual) Lymphocytes % (Manual) Seg Neutrophils # Seg Neutrophils # Man Lymphocytes # (Manual) PT INR APTT POC ABG pH POC ABG pCO2 POC ABG pO2 Sodium 146 H Potassium Chloride 108.6 H Carbon Dioxide BUN 33 H Creatinine Glucose 109 H POC Glucose 110 H 106 H Lactic Acid Calcium 8.3 L Phosphorus Magnesium 2.50 H Iron TIBC AST ALT Alkaline Phosphatase Lactate Dehydrogenase Total Creatine Kinase C-Reactive Protein Total Protein Albumin CA 19-9 Antigen Folate PTH Intact Urine WBC (Auto) Urine Creatinine Urine Chloride Urine Total Protein Fluid Glucose Fluid Total Protein Vancomycin Trough Miscellaneous Test Crossmatch 05/25/18 05/25/18 05/25/18 05:42 05:49 19:50 WBC RBC Hgb Hct MCHC RDW Plt Count Lymph % (Auto) Mineral % (Auto) Lymph # Min[place] # Seg Neutrophils % Seg Neuts % (Manual) Lymphocytes % (Manual) Seg Neutrophils # Seg Neutrophils # Man Lymphocytes # (Manual) PT INR APTT POC ABG pH POC ABG pCO2 POC ABG pO2 Sodium 150 H Potassium Chloride 112.5 H Carbon Dioxide BUN 34 H Creatinine Glucose 102 H POC Glucose 107 H Lactic Acid Calcium Phosphorus Magnesium Iron TIBC AST ALT Alkaline Phosphatase Lactate Dehydrogenase Total Creatine Kinase C-Reactive Protein 34.50 H Total Protein Albumin CA 19-9 Antigen Folate PTH Intact Urine WBC (Auto) Urine Creatinine Urine Chloride Urine Total Protein Fluid Glucose Fluid Total Protein Vancomycin Trough Miscellaneous Test Crossmatch 05/25/18 05/25/18 05/25/18 19:50 21:05 22:46 WBC RBC Hgb Hct MCHC RDW Plt Count Lymph % (Auto) Mineral % (Auto) Lymph # [place] # Seg Neutrophils % Seg Neuts % (Manual) Lymphocytes % (Manual) Seg Neutrophils # Seg Neutrophils # Man Lymphocytes # (Manual) PT INR APTT POC ABG pH 7.483 H POC ABG pCO2 24.0 L POC ABG pO2 72 L Sodium Potassium Chloride Carbon Dioxide BUN Creatinine Glucose POC Glucose Lactic Acid 5.90 H* Calcium Phosphorus Magnesium Iron TIBC AST ALT Alkaline Phosphatase Lactate Dehydrogenase Total Creatine Kinase C-Reactive Protein Total Protein Albumin CA 19-9 Antigen Folate PTH Intact Urine WBC (Auto) Urine Creatinine Urine Chloride Urine Total Protein Fluid Glucose Fluid Total Protein Vancomycin Trough 25.1 H Miscellaneous Test Crossmatch 05/25/18 05/26/18 05/26/18 22:46 00:21 00:51 WBC RBC Hgb Hct MCHC RDW Plt Count Lymph % (Auto) Mineral % (Auto) Lymph # [place] # Seg Neutrophils % Seg Neuts % (Manual) Lymphocytes % (Manual) Seg Neutrophils # Seg Neutrophils # Man Lymphocytes # (Manual) PT INR APTT POC ABG pH POC ABG pCO2 POC ABG pO2 Sodium Potassium Chloride Carbon Dioxide BUN Creatinine Glucose POC Glucose 133 H Lactic Acid 8.10 H* 6.20 H* Calcium Phosphorus Magnesium Iron TIBC AST ALT Alkaline Phosphatase Lactate Dehydrogenase Total Creatine Kinase C-Reactive Protein Total Protein Albumin CA 19-9 Antigen Folate PTH Intact Urine WBC (Auto) Urine Creatinine Urine Chloride Urine Total Protein Fluid Glucose Fluid Total Protein Vancomycin Trough Miscellaneous Test Crossmatch 05/26/18 05/26/18 05/26/18 01:13 02:24 02:24 WBC 18.7 H RBC Hgb 11.6 L Hct MCHC RDW Plt Count Lymph % (Auto) Mineral % (Auto) Lymph # [place] # Seg Neutrophils % Seg Neuts % (Manual) Lymphocytes % (Manual) Seg Neutrophils # Seg Neutrophils # Man Lymphocytes # (Manual) PT INR APTT POC ABG pH POC ABG pCO2 POC ABG pO2 Sodium 147 H Potassium 6.2 H* D Chloride 111.9 H Carbon Dioxide 19 L BUN 80 H Creatinine 5.1 H D Glucose 112 H POC Glucose Lactic Acid 5.20 H* Calcium 6.7 L D Phosphorus Magnesium Iron TIBC AST ALT Alkaline Phosphatase Lactate Dehydrogenase Total Creatine Kinase C-Reactive Protein Total Protein Albumin CA 19-9 Antigen Folate PTH Intact Urine WBC (Auto) Urine Creatinine Urine Chloride Urine Total Protein Fluid Glucose Fluid Total Protein Vancomycin Trough Miscellaneous Test Crossmatch 05/26/18 05/26/18 05/26/18 04:20 04:20 05:39 WBC RBC Hgb Hct MCHC RDW Plt Count Lymph % (Auto) Mineral % (Auto) Lymph # [place] # Seg Neutrophils % Seg Neuts % (Manual) Lymphocytes % (Manual) Seg Neutrophils # Seg Neutrophils # Man Lymphocytes # (Manual) PT INR APTT POC ABG pH POC ABG pCO2 POC ABG pO2 Sodium 150 H Potassium Chloride 110.0 H Carbon Dioxide 19 L BUN 66 H Creatinine Glucose 166 H POC Glucose 187 H Lactic Acid 5.10 H* Calcium 6.9 L Phosphorus 6.70 H D Magnesium Iron TIBC AST ALT Alkaline Phosphatase Lactate Dehydrogenase Total Creatine Kinase C-Reactive Protein Total Protein Albumin CA 19-9 Antigen Folate PTH Intact Urine WBC (Auto) Urine Creatinine Urine Chloride Urine Total Protein Fluid Glucose Fluid Total Protein Vancomycin Trough Miscellaneous Test Crossmatch 05/26/18 05/26/18 05/26/18 06:02 07:29 11:00 WBC RBC Hgb Hct MCHC RDW Plt Count Lymph % (Auto) Mineral % (Auto) Lymph # Mineral # Seg Neutrophils % Seg Neuts % (Manual) Lymphocytes % (Manual) Seg Neutrophils # Seg Neutrophils # Man Lymphocytes # (Manual) PT INR APTT POC ABG pH POC ABG pCO2 28.8 L POC ABG pO2 Sodium Potassium Chloride Carbon Dioxide BUN Creatinine Glucose POC Glucose Lactic Acid 4.80 H* 3.80 H* Calcium Phosphorus Magnesium Iron TIBC AST ALT Alkaline Phosphatase Lactate Dehydrogenase Total Creatine Kinase C-Reactive Protein Total Protein Albumin CA 19-9 Antigen Folate PTH Intact Urine WBC (Auto) Urine Creatinine Urine Chloride Urine Total Protein Fluid Glucose Fluid Total Protein Vancomycin Trough Miscellaneous Test Crossmatch 05/26/18 05/26/18 05/26/18 11:01 12:28 18:00 WBC RBC Hgb Hct MCHC RDW Plt Count Lymph % (Auto) Mineral % (Auto) Lymph # Mineral # Seg Neutrophils % Seg Neuts % (Manual) Lymphocytes % (Manual) Seg Neutrophils # Seg Neutrophils # Man Lymphocytes # (Manual) PT INR APTT POC ABG pH POC ABG pCO2 POC ABG pO2 Sodium 150 H 151 H Potassium 5.3 H D 6.1 H* Chloride 110.3 H 117.0 H Carbon Dioxide 21 L 20 L BUN 75 H 77 H Creatinine 4.3 H D 4.6 H Glucose 161 H POC Glucose 114 H Lactic Acid Calcium 7.5 L 6.7 L Phosphorus Magnesium Iron TIBC AST 1041 H ALT 406 H Alkaline Phosphatase 281 H Lactate Dehydrogenase Total Creatine Kinase C-Reactive Protein Total Protein 4.4 L Albumin 1.3 L CA 19-9 Antigen Folate PTH Intact Urine WBC (Auto) Urine Creatinine Urine Chloride Urine Total Protein Fluid Glucose Fluid Total Protein Vancomycin Trough Miscellaneous Test Crossmatch 05/26/18 05/26/18 05/27/18 18:02 19:17 01:01 WBC 21.7 H RBC 2.70 L Hgb 7.8 L D Hct 24.6 L D MCHC RDW 15.3 H Plt Count Lymph % (Auto) Mineral % (Auto) Lymph # [place]eral # Seg Neutrophils % Seg Neuts % (Manual) 94.0 H Lymphocytes % (Manual) 3.0 L Seg Neutrophils # Seg Neutrophils # Man 20.4 H Lymphocytes # (Manual) 0.7 L PT INR APTT POC ABG pH 7.159 L 7.205 L POC ABG pCO2 54.5 H 53.0 H POC ABG pO2 252 H Sodium Potassium Chloride Carbon Dioxide BUN Creatinine Glucose POC Glucose Lactic Acid Calcium Phosphorus Magnesium Iron TIBC AST ALT Alkaline Phosphatase Lactate Dehydrogenase Total Creatine Kinase C-Reactive Protein Total Protein Albumin CA 19-9 Antigen Folate PTH Intact Urine WBC (Auto) Urine Creatinine Urine Chloride Urine Total Protein Fluid Glucose Fluid Total Protein Vancomycin Trough Miscellaneous Test Crossmatch 05/27/18 05/27/18 05/27/18 05:15 05:15 06:11 WBC 24.9 H RBC 2.86 L Hgb 8.1 L Hct 25.9 L MCHC RDW 15.5 H Plt Count Lymph % (Auto) Mineral % (Auto) Lymph # [place] # Seg Neutrophils % Seg Neuts % (Manual) Lymphocytes % (Manual) Seg Neutrophils # Seg Neutrophils # Man Lymphocytes # (Manual) PT INR APTT POC ABG pH 7.265 L POC ABG pCO2 46.2 H POC ABG pO2 111 H Sodium 149 H Potassium 6.9 H* Chloride 113.5 H Carbon Dioxide BUN 89 H Creatinine 5.2 H Glucose 118 H POC Glucose Lactic Acid Calcium 7.0 L Phosphorus 9.70 H D Magnesium Iron TIBC AST 876 H ALT 408 H Alkaline Phosphatase Lactate Dehydrogenase Total Creatine Kinase C-Reactive Protein Total Protein 5.2 L Albumin 1.5 L CA 19-9 Antigen Folate PTH Intact Urine WBC (Auto) Urine Creatinine Urine Chloride Urine Total Protein Fluid Glucose Fluid Total Protein Vancomycin Trough Miscellaneous Test Crossmatch 05/27/18 05/27/18 05/27/18 08:48 10:22 10:22 WBC RBC Hgb Hct MCHC RDW Plt Count Lymph % (Auto) Mineral % (Auto) Lymph # [place] # Seg Neutrophils % Seg Neuts % (Manual) Lymphocytes % (Manual) Seg Neutrophils # Seg Neutrophils # Man Lymphocytes # (Manual) PT INR APTT POC ABG pH POC ABG pCO2 POC ABG pO2 Sodium 146 H Potassium 6.1 H* Chloride 108.2 H Carbon Dioxide 21 L BUN 88 H Creatinine 5.6 H Glucose 163 H POC Glucose 164 H Lactic Acid Calcium 6.7 L Phosphorus Magnesium Iron TIBC AST ALT Alkaline Phosphatase Lactate Dehydrogenase Total Creatine Kinase C-Reactive Protein 40.70 H Total Protein Albumin CA 19-9 Antigen Folate PTH Intact Urine WBC (Auto) Urine Creatinine Urine Chloride Urine Total Protein Fluid Glucose Fluid Total Protein Vancomycin Trough Miscellaneous Test Crossmatch 05/27/18 05/27/18 05/27/18 13:02 17:39 23:27 WBC RBC Hgb Hct MCHC RDW Plt Count Lymph % (Auto) Mineral % (Auto) Lymph # [place] # Seg Neutrophils % Seg Neuts % (Manual) Lymphocytes % (Manual) Seg Neutrophils # Seg Neutrophils # Man Lymphocytes # (Manual) PT INR APTT POC ABG pH POC ABG pCO2 POC ABG pO2 Sodium Potassium Chloride Carbon Dioxide BUN Creatinine Glucose POC Glucose 59 L 132 H Lactic Acid Calcium Phosphorus Magnesium Iron TIBC AST ALT Alkaline Phosphatase Lactate Dehydrogenase Total Creatine Kinase C-Reactive Protein Total Protein Albumin CA 19-9 Antigen Folate PTH Intact Urine WBC (Auto) Urine Creatinine Urine Chloride Urine Total Protein Fluid Glucose Fluid Total Protein Vancomycin Trough Miscellaneous Test Flexitest 1 H Crossmatch 05/27/18 05/28/18 05/28/18 Unknown 04:32 05:00 WBC RBC Hgb Hct MCHC RDW Plt Count Lymph % (Auto) Mineral % (Auto) Lymph # Mineral # Seg Neutrophils % Seg Neuts % (Manual) Lymphocytes % (Manual) Seg Neutrophils # Seg Neutrophils # Man Lymphocytes # (Manual) PT INR APTT POC ABG pH POC ABG pCO2 POC ABG pO2 134 H Sodium Potassium Chloride Carbon Dioxide BUN 69 H Creatinine 4.4 H Glucose 118 H POC Glucose Lactic Acid Calcium 8.0 L D Phosphorus 6.80 H D Magnesium Iron TIBC AST ALT Alkaline Phosphatase Lactate Dehydrogenase Total Creatine Kinase C-Reactive Protein Total Protein Albumin CA 19-9 Antigen Folate PTH Intact Urine WBC (Auto) 120.0 H Urine Creatinine Urine Chloride Urine Total Protein Fluid Glucose Fluid Total Protein Vancomycin Trough Miscellaneous Test Crossmatch 05/28/18 05/28/18 05/28/18 05:00 05:27 13:04 WBC 26.5 H RBC 2.69 L Hgb 7.7 L Hct 23.6 L MCHC RDW Plt Count Lymph % (Auto) [place]eral % (Auto) Lymph # [place] # Seg Neutrophils % Seg Neuts % (Manual) 96.0 H Lymphocytes % (Manual) 0 L Seg Neutrophils # Seg Neutrophils # Man 25.4 H Lymphocytes # (Manual) 0.0 L PT INR APTT POC ABG pH POC ABG pCO2 POC ABG pO2 Sodium Potassium Chloride Carbon Dioxide BUN Creatinine Glucose POC Glucose 128 H 155 H Lactic Acid Calcium Phosphorus Magnesium Iron TIBC AST ALT Alkaline Phosphatase Lactate Dehydrogenase Total Creatine Kinase C-Reactive Protein Total Protein Albumin CA 19-9 Antigen Folate PTH Intact Urine WBC (Auto) Urine Creatinine Urine Chloride Urine Total Protein Fluid Glucose Fluid Total Protein Vancomycin Trough Miscellaneous Test Crossmatch 05/28/18 05/29/18 05/29/18 17:56 03:35 04:00 WBC RBC Hgb Hct MCHC RDW Plt Count Lymph % (Auto) Mineral % (Auto) Lymph # Mineral # Seg Neutrophils % Seg Neuts % (Manual) Lymphocytes % (Manual) Seg Neutrophils # Seg Neutrophils # Man Lymphocytes # (Manual) PT INR APTT POC ABG pH 7.471 H POC ABG pCO2 POC ABG pO2 78 L Sodium Potassium Chloride Carbon Dioxide BUN 50 H Creatinine 3.9 H Glucose POC Glucose 110 H Lactic Acid Calcium 7.7 L Phosphorus Magnesium 1.50 L Iron TIBC AST 218 H ALT 204 H Alkaline Phosphatase Lactate Dehydrogenase Total Creatine Kinase C-Reactive Protein Total Protein 5.4 L Albumin 1.6 L CA 19-9 Antigen Folate PTH Intact Urine WBC (Auto) Urine Creatinine Urine Chloride Urine Total Protein Fluid Glucose Fluid Total Protein Vancomycin Trough Miscellaneous Test Crossmatch 05/29/18 05/29/18 05/30/18 11:51 23:56 04:54 WBC RBC Hgb Hct MCHC RDW Plt Count Lymph % (Auto) Mineral % (Auto) Lymph # Mineral # Seg Neutrophils % Seg Neuts % (Manual) Lymphocytes % (Manual) Seg Neutrophils # Seg Neutrophils # Man Lymphocytes # (Manual) PT INR APTT POC ABG pH POC ABG pCO2 POC ABG pO2 Sodium Potassium Chloride Carbon Dioxide BUN Creatinine Glucose POC Glucose 131 H 119 H 115 H Lactic Acid Calcium Phosphorus Magnesium Iron TIBC AST ALT Alkaline Phosphatase Lactate Dehydrogenase Total Creatine Kinase C-Reactive Protein Total Protein Albumin CA 19-9 Antigen Folate PTH Intact Urine WBC (Auto) Urine Creatinine Urine Chloride Urine Total Protein Fluid Glucose Fluid Total Protein Vancomycin Trough Miscellaneous Test Crossmatch 05/30/18 05/30/18 05/30/18 05:07 05:15 05:15 WBC 16.2 H RBC 2.53 L Hgb 7.4 L Hct 21.9 L MCHC RDW Plt Count Lymph % (Auto) [place] % (Auto) Lymph # [place] # Seg Neutrophils % Seg Neuts % (Manual) Lymphocytes % (Manual) Seg Neutrophils # Seg Neutrophils # Man Lymphocytes # (Manual) PT INR APTT POC ABG pH POC ABG pCO2 34.5 L POC ABG pO2 133 H Sodium 135 L Potassium Chloride 97.5 L Carbon Dioxide BUN 69 H Creatinine 5.4 H Glucose 105 H POC Glucose Lactic Acid Calcium 7.5 L Phosphorus 5.30 H D Magnesium Iron TIBC AST ALT Alkaline Phosphatase Lactate Dehydrogenase Total Creatine Kinase C-Reactive Protein Total Protein Albumin CA 19-9 Antigen Folate PTH Intact Urine WBC (Auto) Urine Creatinine Urine Chloride Urine Total Protein Fluid Glucose Fluid Total Protein Vancomycin Trough Miscellaneous Test Crossmatch 05/30/18 05/30/18 05/31/18 12:13 17:10 04:50 WBC 18.7 H RBC 2.86 L Hgb 8.2 L Hct 24.8 L MCHC RDW Plt Count Lymph % (Auto) [place] % (Auto) Lymph # [place] # Seg Neutrophils % Seg Neuts % (Manual) 91.0 H Lymphocytes % (Manual) 2.0 L Seg Neutrophils # Seg Neutrophils # Man 17.0 H Lymphocytes # (Manual) 0.4 L PT INR APTT POC ABG pH POC ABG pCO2 POC ABG pO2 Sodium Potassium Chloride Carbon Dioxide BUN Creatinine Glucose POC Glucose 132 H 122 H Lactic Acid Calcium Phosphorus Magnesium Iron TIBC AST ALT Alkaline Phosphatase Lactate Dehydrogenase Total Creatine Kinase C-Reactive Protein Total Protein Albumin CA 19-9 Antigen Folate PTH Intact Urine WBC (Auto) Urine Creatinine Urine Chloride Urine Total Protein Fluid Glucose Fluid Total Protein Vancomycin Trough Miscellaneous Test Crossmatch 05/31/18 05/31/18 05/31/18 04:50 05:45 11:37 WBC RBC Hgb Hct MCHC RDW Plt Count Lymph % (Auto) [place] % (Auto) Lymph # [place] # Seg Neutrophils % Seg Neuts % (Manual) Lymphocytes % (Manual) Seg Neutrophils # Seg Neutrophils # Man Lymphocytes # (Manual) PT INR APTT POC ABG pH POC ABG pCO2 POC ABG pO2 Sodium 132 L Potassium Chloride 92.4 L Carbon Dioxide BUN 77 H Creatinine 5.9 H Glucose POC Glucose 111 H 136 H Lactic Acid Calcium 7.3 L Phosphorus 6.40 H D Magnesium Iron TIBC AST ALT Alkaline Phosphatase Lactate Dehydrogenase Total Creatine Kinase C-Reactive Protein Total Protein Albumin CA 19-9 Antigen Folate PTH Intact Urine WBC (Auto) Urine Creatinine Urine Chloride Urine Total Protein Fluid Glucose Fluid Total Protein Vancomycin Trough Miscellaneous Test Crossmatch 05/31/18 06/01/18 06/01/18 17:52 00:09 04:00 WBC RBC Hgb Hct MCHC RDW Plt Count Lymph % (Auto) [place] % (Auto) Lymph # [place] # Seg Neutrophils % Seg Neuts % (Manual) Lymphocytes % (Manual) Seg Neutrophils # Seg Neutrophils # Man Lymphocytes # (Manual) PT INR APTT POC ABG pH POC ABG pCO2 POC ABG pO2 Sodium Potassium Chloride 97.5 L Carbon Dioxide BUN 49 H Creatinine 4.2 H Glucose 104 H POC Glucose 115 H 114 H Lactic Acid Calcium 7.3 L Phosphorus 4.70 H D Magnesium Iron TIBC AST ALT Alkaline Phosphatase Lactate Dehydrogenase Total Creatine Kinase C-Reactive Protein Total Protein Albumin CA 19-9 Antigen Folate PTH Intact Urine WBC (Auto) Urine Creatinine Urine Chloride Urine Total Protein Fluid Glucose Fluid Total Protein Vancomycin Trough Miscellaneous Test Crossmatch 06/01/18 06/01/18 06/02/18 11:10 17:56 00:15 WBC RBC Hgb Hct MCHC RDW Plt Count Lymph % (Auto) [place] % (Auto) Lymph # [place] # Seg Neutrophils % Seg Neuts % (Manual) Lymphocytes % (Manual) Seg Neutrophils # Seg Neutrophils # Man Lymphocytes # (Manual) PT INR APTT POC ABG pH POC ABG pCO2 POC ABG pO2 Sodium Potassium Chloride Carbon Dioxide BUN Creatinine Glucose POC Glucose 123 H 126 H 135 H Lactic Acid Calcium Phosphorus Magnesium Iron TIBC AST ALT Alkaline Phosphatase Lactate Dehydrogenase Total Creatine Kinase C-Reactive Protein Total Protein Albumin CA 19-9 Antigen Folate PTH Intact Urine WBC (Auto) Urine Creatinine Urine Chloride Urine Total Protein Fluid Glucose Fluid Total Protein Vancomycin Trough Miscellaneous Test Crossmatch 06/02/18 06/02/18 06/02/18 05:23 12:42 13:05 WBC RBC Hgb Hct MCHC RDW Plt Count Lymph % (Auto) [place] % (Auto) Lymph # [place] # Seg Neutrophils % Seg Neuts % (Manual) Lymphocytes % (Manual) Seg Neutrophils # Seg Neutrophils # Man Lymphocytes # (Manual) PT 17.1 H INR 1.34 H APTT POC ABG pH POC ABG pCO2 POC ABG pO2 Sodium Potassium Chloride Carbon Dioxide BUN Creatinine Glucose POC Glucose 135 H 142 H Lactic Acid Calcium Phosphorus Magnesium Iron TIBC AST ALT Alkaline Phosphatase Lactate Dehydrogenase Total Creatine Kinase C-Reactive Protein Total Protein Albumin CA 19-9 Antigen Folate PTH Intact Urine WBC (Auto) Urine Creatinine Urine Chloride Urine Total Protein Fluid Glucose Fluid Total Protein Vancomycin Trough Miscellaneous Test Crossmatch 06/02/18 06/02/18 06/03/18 Unknown Unknown 00:54 WBC 20.8 H RBC 2.67 L Hgb 7.7 L Hct 23.0 L MCHC RDW Plt Count 500 H Lymph % (Auto) [place] % (Auto) Lymph # [place] # Seg Neutrophils % Seg Neuts % (Manual) Lymphocytes % (Manual) Seg Neutrophils # Seg Neutrophils # Man Lymphocytes # (Manual) PT INR APTT POC ABG pH POC ABG pCO2 POC ABG pO2 Sodium 136 L Potassium 3.5 L Chloride 96.9 L Carbon Dioxide BUN 62 H Creatinine 4.9 H Glucose 133 H POC Glucose 125 H Lactic Acid Calcium 7.2 L Phosphorus 5.00 H Magnesium Iron TIBC AST 46 H ALT 66 H Alkaline Phosphatase Lactate Dehydrogenase Total Creatine Kinase C-Reactive Protein Total Protein 5.7 L Albumin 1.5 L CA 19-9 Antigen Folate PTH Intact Urine WBC (Auto) Urine Creatinine Urine Chloride Urine Total Protein Fluid Glucose Fluid Total Protein Vancomycin Trough Miscellaneous Test Crossmatch 06/03/18 06/03/18 06/03/18 03:31 09:18 09:18 WBC RBC Hgb Hct MCHC RDW Plt Count Lymph % (Auto) [place] % (Auto) Lymph # [place] # Seg Neutrophils % Seg Neuts % (Manual) Lymphocytes % (Manual) Seg Neutrophils # Seg Neutrophils # Man Lymphocytes # (Manual) PT 17.1 H INR 1.34 H APTT POC ABG pH POC ABG pCO2 POC ABG pO2 Sodium 136 L Potassium Chloride Carbon Dioxide BUN 41 H Creatinine 3.4 H Glucose 129 H POC Glucose Lactic Acid Calcium 7.4 L Phosphorus Magnesium Iron TIBC AST ALT Alkaline Phosphatase Lactate Dehydrogenase Total Creatine Kinase C-Reactive Protein 11.10 H Total Protein Albumin CA 19-9 Antigen Folate PTH Intact Urine WBC (Auto) Urine Creatinine Urine Chloride Urine Total Protein Fluid Glucose Fluid Total Protein Vancomycin Trough Miscellaneous Test Crossmatch 06/03/18 06/03/18 06/03/18 16:07 21:18 Unknown WBC RBC Hgb Hct MCHC RDW Plt Count Lymph % (Auto) [place] % (Auto) Lymph # [place] # Seg Neutrophils % Seg Neuts % (Manual) Lymphocytes % (Manual) Seg Neutrophils # Seg Neutrophils # Man Lymphocytes # (Manual) PT INR APTT POC ABG pH POC ABG pCO2 POC ABG pO2 Sodium Potassium Chloride Carbon Dioxide BUN Creatinine Glucose POC Glucose 144 H 128 H Lactic Acid Calcium Phosphorus Magnesium Iron TIBC AST ALT Alkaline Phosphatase Lactate Dehydrogenase Total Creatine Kinase C-Reactive Protein Total Protein Albumin CA 19-9 Antigen Folate PTH Intact Urine WBC (Auto) Urine Creatinine Urine Chloride Urine Total Protein Fluid Glucose 10 L Fluid Total Protein 3.7 L Vancomycin Trough Miscellaneous Test Crossmatch 06/04/18 06/04/18 06/04/18 04:31 06:14 11:38 WBC RBC Hgb Hct MCHC RDW Plt Count Lymph % (Auto) [place] % (Auto) Lymph # [place] # Seg Neutrophils % Seg Neuts % (Manual) Lymphocytes % (Manual) Seg Neutrophils # Seg Neutrophils # Man Lymphocytes # (Manual) PT INR APTT POC ABG pH POC ABG pCO2 POC ABG pO2 Sodium Potassium Chloride Carbon Dioxide BUN 55 H Creatinine 3.7 H Glucose 151 H POC Glucose 145 H 129 H Lactic Acid Calcium 7.8 L Phosphorus 4.60 H Magnesium Iron TIBC AST ALT Alkaline Phosphatase Lactate Dehydrogenase Total Creatine Kinase C-Reactive Protein Total Protein Albumin CA 19-9 Antigen Folate PTH Intact Urine WBC (Auto) Urine Creatinine Urine Chloride Urine Total Protein Fluid Glucose Fluid Total Protein Vancomycin Trough Miscellaneous Test Crossmatch 06/04/18 06/04/18 06/04/18 17:09 20:00 21:29 WBC RBC Hgb 8.8 L Hct 27.3 L MCHC RDW Plt Count Lymph % (Auto) [place] % (Auto) Lymph # [place] # Seg Neutrophils % Seg Neuts % (Manual) Lymphocytes % (Manual) Seg Neutrophils # Seg Neutrophils # Man Lymphocytes # (Manual) PT INR APTT POC ABG pH POC ABG pCO2 POC ABG pO2 Sodium Potassium Chloride Carbon Dioxide BUN Creatinine Glucose POC Glucose 142 H 130 H Lactic Acid Calcium Phosphorus Magnesium Iron TIBC AST ALT Alkaline Phosphatase Lactate Dehydrogenase Total Creatine Kinase C-Reactive Protein Total Protein Albumin CA 19-9 Antigen Folate PTH Intact Urine WBC (Auto) Urine Creatinine Urine Chloride Urine Total Protein Fluid Glucose Fluid Total Protein Vancomycin Trough Miscellaneous Test Crossmatch 06/05/18 06/05/18 06/05/18 06:30 07:00 07:00 WBC 19.3 H RBC 2.94 L Hgb 8.3 L Hct 25.6 L MCHC RDW 15.7 H Plt Count 568 H Lymph % (Auto) 4.7 L [place] % (Auto) Lymph # 0.9 L [place] # 1.1 H Seg Neutrophils % 88.9 H Seg Neuts % (Manual) Lymphocytes % (Manual) Seg Neutrophils # 17.2 H Seg Neutrophils # Man Lymphocytes # (Manual) PT INR APTT POC ABG pH POC ABG pCO2 POC ABG pO2 Sodium Potassium 3.4 L D Chloride Carbon Dioxide BUN 67 H Creatinine 3.6 H Glucose 145 H POC Glucose 153 H Lactic Acid Calcium 7.9 L Phosphorus 4.60 H Magnesium Iron TIBC AST ALT Alkaline Phosphatase Lactate Dehydrogenase Total Creatine Kinase C-Reactive Protein Total Protein Albumin CA 19-9 Antigen Folate PTH Intact Urine WBC (Auto) Urine Creatinine Urine Chloride Urine Total Protein Fluid Glucose Fluid Total Protein Vancomycin Trough Miscellaneous Test Crossmatch 06/05/18 06/05/18 06/06/18 12:10 16:01 06:39 WBC RBC Hgb Hct MCHC RDW Plt Count Lymph % (Auto) [place] % (Auto) Lymph # [place] # Seg Neutrophils % Seg Neuts % (Manual) Lymphocytes % (Manual) Seg Neutrophils # Seg Neutrophils # Man Lymphocytes # (Manual) PT INR APTT POC ABG pH POC ABG pCO2 POC ABG pO2 Sodium Potassium Chloride Carbon Dioxide BUN Creatinine Glucose POC Glucose 150 H 129 H 131 H Lactic Acid Calcium Phosphorus Magnesium Iron TIBC AST ALT Alkaline Phosphatase Lactate Dehydrogenase Total Creatine Kinase C-Reactive Protein Total Protein Albumin CA 19-9 Antigen Folate PTH Intact Urine WBC (Auto) Urine Creatinine Urine Chloride Urine Total Protein Fluid Glucose Fluid Total Protein Vancomycin Trough Miscellaneous Test Crossmatch 06/06/18 06/06/18 06/06/18 07:14 07:14 07:14 WBC 16.5 H RBC 2.84 L Hgb 8.1 L Hct 25.2 L MCHC RDW 16.4 H Plt Count 526 H Lymph % (Auto) 6.5 L [place] % (Auto) Lymph # 1.1 L [place] # 1.2 H Seg Neutrophils % 85.3 H Seg Neuts % (Manual) Lymphocytes % (Manual) Seg Neutrophils # 14.1 H Seg Neutrophils # Man Lymphocytes # (Manual) PT INR APTT POC ABG pH POC ABG pCO2 POC ABG pO2 Sodium Potassium Chloride 109.1 H Carbon Dioxide 21 L BUN 76 H Creatinine 3.5 H Glucose 111 H POC Glucose Lactic Acid Calcium 8.1 L Phosphorus Magnesium Iron TIBC AST ALT Alkaline Phosphatase Lactate Dehydrogenase Total Creatine Kinase C-Reactive Protein 4.70 H Total Protein Albumin CA 19-9 Antigen Folate PTH Intact Urine WBC (Auto) Urine Creatinine Urine Chloride Urine Total Protein Fluid Glucose Fluid Total Protein Vancomycin Trough Miscellaneous Test Crossmatch 06/06/18 06/06/18 06/06/18 11:15 18:00 23:58 WBC RBC Hgb Hct MCHC RDW Plt Count Lymph % (Auto) [place] % (Auto) Lymph # [place] # Seg Neutrophils % Seg Neuts % (Manual) Lymphocytes % (Manual) Seg Neutrophils # Seg Neutrophils # Man Lymphocytes # (Manual) PT INR APTT POC ABG pH POC ABG pCO2 POC ABG pO2 Sodium Potassium Chloride Carbon Dioxide BUN Creatinine Glucose POC Glucose 127 H 130 H 114 H Lactic Acid Calcium Phosphorus Magnesium Iron TIBC AST ALT Alkaline Phosphatase Lactate Dehydrogenase Total Creatine Kinase C-Reactive Protein Total Protein Albumin CA 19-9 Antigen Folate PTH Intact Urine WBC (Auto) Urine Creatinine Urine Chloride Urine Total Protein Fluid Glucose Fluid Total Protein Vancomycin Trough Miscellaneous Test Crossmatch 06/07/18 06/07/18 06/07/18 05:45 05:45 05:54 WBC 15.5 H RBC 2.60 L Hgb 7.4 L Hct 23.1 L MCHC RDW 16.5 H Plt Count 506 H Lymph % (Auto) 5.3 L [place] % (Auto) Lymph # 0.8 L [place] # 1.0 H Seg Neutrophils % 86.6 H Seg Neuts % (Manual) Lymphocytes % (Manual) Seg Neutrophils # 13.4 H Seg Neutrophils # Man Lymphocytes # (Manual) PT INR APTT POC ABG pH POC ABG pCO2 POC ABG pO2 Sodium Potassium Chloride 108.4 H Carbon Dioxide BUN 84 H Creatinine 3.5 H Glucose 119 H POC Glucose 114 H Lactic Acid Calcium 8.1 L Phosphorus 5.10 H Magnesium Iron TIBC AST ALT Alkaline Phosphatase Lactate Dehydrogenase Total Creatine Kinase C-Reactive Protein Total Protein Albumin CA 19-9 Antigen Folate PTH Intact Urine WBC (Auto) Urine Creatinine Urine Chloride Urine Total Protein Fluid Glucose Fluid Total Protein Vancomycin Trough Miscellaneous Test Crossmatch 06/07/18 06/08/18 06/08/18 12:15 05:05 05:24 WBC RBC Hgb Hct MCHC RDW Plt Count Lymph % (Auto) [place] % (Auto) Lymph # [place] # Seg Neutrophils % Seg Neuts % (Manual) Lymphocytes % (Manual) Seg Neutrophils # Seg Neutrophils # Man Lymphocytes # (Manual) PT INR APTT POC ABG pH POC ABG pCO2 POC ABG pO2 Sodium 148 H Potassium Chloride 112.4 H Carbon Dioxide BUN 89 H Creatinine 3.4 H Glucose 120 H POC Glucose 148 H 115 H Lactic Acid Calcium 7.9 L Phosphorus Magnesium Iron TIBC AST ALT Alkaline Phosphatase Lactate Dehydrogenase Total Creatine Kinase C-Reactive Protein Total Protein Albumin CA 19-9 Antigen Folate PTH Intact Urine WBC (Auto) Urine Creatinine Urine Chloride Urine Total Protein Fluid Glucose Fluid Total Protein Vancomycin Trough Miscellaneous Test Crossmatch 06/08/18 06/08/18 06/08/18 21:36 21:43 21:43 WBC RBC 2.98 L Hgb 8.8 L Hct 26.6 L MCHC RDW 16.7 H Plt Count 463 H Lymph % (Auto) 7.9 L [place] % (Auto) Lymph # 0.8 L [place] # Seg Neutrophils % 84.8 H Seg Neuts % (Manual) Lymphocytes % (Manual) Seg Neutrophils # 8.6 H Seg Neutrophils # Man Lymphocytes # (Manual) PT INR APTT POC ABG pH POC ABG pCO2 POC ABG pO2 Sodium Potassium Chloride Carbon Dioxide BUN Creatinine Glucose POC Glucose Lactic Acid Calcium Phosphorus Magnesium Iron TIBC AST ALT Alkaline Phosphatase Lactate Dehydrogenase 297 H Total Creatine Kinase C-Reactive Protein Total Protein Albumin CA 19-9 Antigen 57 H Folate PTH Intact Urine WBC (Auto) Urine Creatinine Urine Chloride Urine Total Protein Fluid Glucose Fluid Total Protein Vancomycin Trough Miscellaneous Test Crossmatch 06/09/18 06/09/18 06/09/18 00:05 05:34 05:50 WBC RBC Hgb Hct MCHC RDW Plt Count Lymph % (Auto) [place] % (Auto) Lymph # [place] # Seg Neutrophils % Seg Neuts % (Manual) Lymphocytes % (Manual) Seg Neutrophils # Seg Neutrophils # Man Lymphocytes # (Manual) PT INR APTT POC ABG pH POC ABG pCO2 POC ABG pO2 Sodium 153 H Potassium Chloride 117.3 H Carbon Dioxide BUN 84 H Creatinine 3.2 H Glucose 117 H POC Glucose 140 H 146 H Lactic Acid Calcium 7.9 L Phosphorus Magnesium Iron TIBC AST ALT Alkaline Phosphatase Lactate Dehydrogenase Total Creatine Kinase C-Reactive Protein Total Protein Albumin CA 19-9 Antigen Folate PTH Intact Urine WBC (Auto) Urine Creatinine Urine Chloride Urine Total Protein Fluid Glucose Fluid Total Protein Vancomycin Trough Miscellaneous Test Crossmatch 06/09/18 06/09/18 06/09/18 05:50 07:37 10:34 WBC RBC 2.32 L Hgb 6.8 L Hct 20.7 L MCHC RDW 16.7 H Plt Count Lymph % (Auto) [place] % (Auto) Lymph # [place] # Seg Neutrophils % Seg Neuts % (Manual) Lymphocytes % (Manual) Seg Neutrophils # Seg Neutrophils # Man Lymphocytes # (Manual) PT INR APTT POC ABG pH POC ABG pCO2 POC ABG pO2 Sodium 149 H Potassium Chloride 114.6 H Carbon Dioxide BUN 84 H Creatinine 3.1 H Glucose 137 H POC Glucose Lactic Acid Calcium 7.7 L Phosphorus Magnesium Iron TIBC AST ALT Alkaline Phosphatase Lactate Dehydrogenase Total Creatine Kinase C-Reactive Protein Total Protein Albumin CA 19-9 Antigen Folate PTH Intact Urine WBC (Auto) Urine Creatinine Urine Chloride Urine Total Protein Fluid Glucose Fluid Total Protein Vancomycin Trough Miscellaneous Test Flexitest 1 H Crossmatch 06/09/18 06/09/18 06/09/18 10:41 11:56 13:24 WBC RBC 2.43 L Hgb 7.2 L Hct 21.6 L MCHC RDW 16.8 H Plt Count Lymph % (Auto) [place] % (Auto) Lymph # [place] # Seg Neutrophils % Seg Neuts % (Manual) Lymphocytes % (Manual) Seg Neutrophils # Seg Neutrophils # Man Lymphocytes # (Manual) PT INR APTT POC ABG pH POC ABG pCO2 POC ABG pO2 Sodium Potassium Chloride Carbon Dioxide BUN Creatinine Glucose POC Glucose 141 H Lactic Acid Calcium Phosphorus Magnesium Iron TIBC AST ALT Alkaline Phosphatase Lactate Dehydrogenase Total Creatine Kinase C-Reactive Protein Total Protein Albumin CA 19-9 Antigen Folate PTH Intact Urine WBC (Auto) Urine Creatinine Urine Chloride Urine Total Protein Fluid Glucose Fluid Total Protein Vancomycin Trough Miscellaneous Test Crossmatch See Detail 06/09/18 06/09/18 06/10/18 18:18 23:13 05:26 WBC RBC Hgb Hct MCHC RDW Plt Count Lymph % (Auto) [place] % (Auto) Lymph # [place] # Seg Neutrophils % Seg Neuts % (Manual) Lymphocytes % (Manual) Seg Neutrophils # Seg Neutrophils # Man Lymphocytes # (Manual) PT INR APTT POC ABG pH POC ABG pCO2 POC ABG pO2 Sodium 148 H Potassium Chloride 114.7 H Carbon Dioxide 21 L BUN 79 H Creatinine 3.2 H Glucose 121 H POC Glucose 156 H 163 H Lactic Acid Calcium 7.8 L Phosphorus Magnesium 1.60 L Iron TIBC AST ALT Alkaline Phosphatase Lactate Dehydrogenase Total Creatine Kinase C-Reactive Protein Total Protein Albumin CA 19-9 Antigen Folate PTH Intact Urine WBC (Auto) Urine Creatinine Urine Chloride Urine Total Protein Fluid Glucose Fluid Total Protein Vancomycin Trough Miscellaneous Test Crossmatch 06/10/18 06/10/18 06/10/18 05:26 05:31 17:15 WBC 11.1 H RBC 3.07 L Hgb 9.1 L Hct 27.6 L D MCHC RDW 17.4 H Plt Count Lymph % (Auto) [place] % (Auto) Lymph # [place] # Seg Neutrophils % Seg Neuts % (Manual) Lymphocytes % (Manual) Seg Neutrophils # Seg Neutrophils # Man Lymphocytes # (Manual) PT INR APTT POC ABG pH POC ABG pCO2 POC ABG pO2 Sodium Potassium Chloride Carbon Dioxide BUN Creatinine Glucose POC Glucose 128 H Lactic Acid Calcium Phosphorus Magnesium Iron TIBC AST ALT Alkaline Phosphatase Lactate Dehydrogenase Total Creatine Kinase C-Reactive Protein 3.60 H Total Protein Albumin CA 19-9 Antigen Folate PTH Intact Urine WBC (Auto) Urine Creatinine Urine Chloride Urine Total Protein Fluid Glucose Fluid Total Protein Vancomycin Trough Miscellaneous Test Crossmatch 06/11/18 06/11/18 06/11/18 01:13 05:41 05:41 WBC 14.6 H RBC 3.40 L Hgb 9.8 L Hct 30.7 L MCHC RDW 18.1 H Plt Count Lymph % (Auto) [place] % (Auto) Lymph # [place] # Seg Neutrophils % Seg Neuts % (Manual) Lymphocytes % (Manual) Seg Neutrophils # Seg Neutrophils # Man Lymphocytes # (Manual) PT INR APTT POC ABG pH POC ABG pCO2 POC ABG pO2 Sodium Potassium Chloride 110.8 H Carbon Dioxide 18 L BUN 77 H Creatinine 3.0 H Glucose 116 H POC Glucose 126 H Lactic Acid Calcium 7.9 L Phosphorus Magnesium Iron TIBC AST ALT Alkaline Phosphatase Lactate Dehydrogenase Total Creatine Kinase C-Reactive Protein Total Protein Albumin CA 19-9 Antigen Folate PTH Intact Urine WBC (Auto) Urine Creatinine Urine Chloride Urine Total Protein Fluid Glucose Fluid Total Protein Vancomycin Trough Miscellaneous Test Crossmatch 06/11/18 06/11/18 06/11/18 06:20 07:41 07:41 WBC RBC Hgb Hct MCHC RDW Plt Count Lymph % (Auto) [place] % (Auto) Lymph # [place] # Seg Neutrophils % Seg Neuts % (Manual) Lymphocytes % (Manual) Seg Neutrophils # Seg Neutrophils # Man Lymphocytes # (Manual) PT INR APTT POC ABG pH POC ABG pCO2 POC ABG pO2 Sodium Potassium Chloride Carbon Dioxide BUN Creatinine Glucose POC Glucose 136 H Lactic Acid Calcium Phosphorus Magnesium Iron TIBC AST ALT Alkaline Phosphatase Lactate Dehydrogenase Total Creatine Kinase C-Reactive Protein Total Protein Albumin CA 19-9 Antigen Folate PTH Intact Urine WBC (Auto) 10.0 H Urine Creatinine 41.2 H Urine Chloride 49.2 L Urine Total Protein 142 H Fluid Glucose Fluid Total Protein Vancomycin Trough Miscellaneous Test Crossmatch 06/11/18 06/12/18 06/12/18 18:35 00:34 04:12 WBC RBC 3.18 L Hgb 9.5 L Hct 28.7 L MCHC RDW 18.5 H Plt Count Lymph % (Auto) 8.1 L [place] % (Auto) Lymph # 0.9 L [place] # Seg Neutrophils % 84.6 H Seg Neuts % (Manual) Lymphocytes % (Manual) Seg Neutrophils # 9.1 H Seg Neutrophils # Man Lymphocytes # (Manual) PT INR APTT POC ABG pH POC ABG pCO2 POC ABG pO2 Sodium Potassium Chloride Carbon Dioxide BUN Creatinine Glucose POC Glucose 125 H 129 H Lactic Acid Calcium Phosphorus Magnesium Iron TIBC AST ALT Alkaline Phosphatase Lactate Dehydrogenase Total Creatine Kinase C-Reactive Protein Total Protein Albumin CA 19-9 Antigen Folate PTH Intact Urine WBC (Auto) Urine Creatinine Urine Chloride Urine Total Protein Fluid Glucose Fluid Total Protein Vancomycin Trough Miscellaneous Test Crossmatch 06/12/18 06/12/18 06/12/18 04:12 06:30 11:43 WBC RBC Hgb Hct MCHC RDW Plt Count Lymph % (Auto) [place] % (Auto) Lymph # [place] # Seg Neutrophils % Seg Neuts % (Manual) Lymphocytes % (Manual) Seg Neutrophils # Seg Neutrophils # Man Lymphocytes # (Manual) PT INR APTT POC ABG pH POC ABG pCO2 POC ABG pO2 Sodium Potassium Chloride 108.5 H Carbon Dioxide 21 L BUN 72 H Creatinine 3.0 H Glucose 122 H POC Glucose 129 H 126 H Lactic Acid Calcium 7.8 L Phosphorus Magnesium Iron TIBC AST 45 H ALT Alkaline Phosphatase 200 H Lactate Dehydrogenase Total Creatine Kinase 34 L C-Reactive Protein Total Protein Albumin 1.7 L CA 19-9 Antigen Folate PTH Intact Urine WBC (Auto) Urine Creatinine Urine Chloride Urine Total Protein Fluid Glucose Fluid Total Protein Vancomycin Trough Miscellaneous Test Crossmatch 06/12/18 16:00 WBC RBC Hgb Hct MCHC RDW Plt Count Lymph % (Auto) [place] % (Auto) Lymph # [place] # Seg Neutrophils % Seg Neuts % (Manual) Lymphocytes % (Manual) Seg Neutrophils # Seg Neutrophils # Man Lymphocytes # (Manual) PT INR APTT POC ABG pH POC ABG pCO2 POC ABG pO2 Sodium Potassium Chloride Carbon Dioxide BUN Creatinine Glucose POC Glucose 123 H Lactic Acid Calcium Phosphorus Magnesium Iron TIBC AST ALT Alkaline Phosphatase Lactate Dehydrogenase Total Creatine Kinase C-Reactive Protein Total Protein Albumin CA 19-9 Antigen Folate PTH Intact Urine WBC (Auto) Urine Creatinine Urine Chloride Urine Total Protein Fluid Glucose Fluid Total Protein Vancomycin Trough Miscellaneous Test Crossmatch Allied health notes reviewed: nursing
--- NOTE | 2018-06-12 19:44 | Hem/Onc Progress Note ---
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 Ultrasound Kidneys showed bilat hydronephrosis CT Abd shows Pelvic mass with multiple large lymph nodes Had bilateral nephrostomy tubes placed 05/14/[address] Freeman. abnormal renal function - HD - as per nephrology #Acute DVT right leg - below knee No anticoagulation for now because of bilateral nephrostomy tubes and abdo issues. 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 Ct chest was done - CTA - no PE treatmetn for pneumonia LTAC eval pt using O2 - has neck line and drains - Patient Problems (1) Pelvic mass in male Current Visit: Yes Status: Acute Subjective Date of service: 06/12/18 Principal diagnosis: sq cell ca -prostate Interval history: pt had diverting colostomy 05/26 has colostomy Objective - Exam Narrative Exam: neck central line - Constitutional Vitals: Last Vital Signs Temp 98.1 F 06/12/18 12:00 Pulse 73 06/12/18 18:22 Resp 20 06/12/18 12:00 BP 138/86 06/12/18 18:22 Pulse Ox 95 06/12/18 15:58 Pain Intensity (0-10): denies any pain General appearance: mild distress Performance status: 4-completely disabled - EENT Eyes: PERRL Lymph node exam: negative cervical, negative supraclavicular - Respiratory Respiratory: bilateral: CTA - Cardiovascular Heart Sounds: Present: S1 & S2 Extremities: No edema - Gastrointestinal General gastrointestinal: Present: soft, other (colostomy) Rectal Exam: deferred - Genitourinary Male genitourinary: Present: deferred - Neurologic Neurologic: moves all extremities - Labs Lab Results: Laboratory Results - last 24 hr 06/12/18 06/12/18 06/12/18 00:34 04:12 04:12 WBC 10.8 RBC 3.18 L Hgb 9.5 L Hct 28.7 L MCV 90 MCH 30 MCHC 33 RDW 18.5 H Plt Count 326 Lymph % (Auto) 8.1 L [place] % (Auto) 6.1 Eos % (Auto) 0.5 Baso % (Auto) 0.7 Lymph # 0.9 L [place] # 0.7 Eos # 0.1 Baso # 0.1 Seg Neutrophils % 84.6 H Seg Neutrophils # 9.1 H Sodium 140 Potassium 4.1 Chloride 108.5 H Carbon Dioxide 21 L Anion Gap 15 BUN 72 H Creatinine 3.0 H Estimated GFR 27 BUN/Creatinine Ratio 24 Glucose 122 H POC Glucose 129 H Calcium 7.8 L Total Bilirubin 0.30 AST 45 H ALT 29 Alkaline Phosphatase 200 H Total Creatine Kinase 34 L Total Protein 7.3 Albumin 1.7 L Albumin/Globulin Ratio 0.3 06/12/18 06/12/18 06/12/18 06:30 11:43 16:00 WBC RBC Hgb Hct MCV MCH MCHC RDW Plt Count Lymph % (Auto) [place] % (Auto) Eos % (Auto) Baso % (Auto) Lymph # [place] # Eos # Baso # Seg Neutrophils % Seg Neutrophils # Sodium Potassium Chloride Carbon Dioxide Anion Gap BUN Creatinine Estimated GFR BUN/Creatinine Ratio Glucose POC Glucose 129 H 126 H 123 H Calcium Total Bilirubin AST ALT Alkaline Phosphatase Total Creatine Kinase Total Protein Albumin Albumin/Globulin Ratio
[2018-06-12] MEDS ORDERED: TPN ADULT 2,016 ML IV SCH (20:00)
[2018-06-12] MEDS: MORPHINE IV PRN (22:22)
[2018-06-13] MEDS: HumuLIN R SUB-Q SCH ×4 (00:10→18:16)
[2018-06-13] MEDS: APRESOLINE PO SCH ×3 (05:14→22:00)
[2018-06-13] MEDS: ZOSYN/NS 2.25 GM/50ML 2.25 GM/50 ML BAG IV SCH ×2 (05:14→21:22)
[2018-06-13 06:35] LABS: Calcium 7.8 mg/dL (8.4-10.2)
--- NOTE | 2018-06-13 07:24 | Hem/Onc Progress Note ---
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 Ultrasound Kidneys showed bilat hydronephrosis CT Abd shows Pelvic mass with multiple large lymph nodes Had bilateral nephrostomy tubes placed 05/14/[address] Freeman. abnormal renal function - HD - as per nephrology #Acute DVT right leg - below knee No anticoagulation for now because of bilateral nephrostomy tubes and abdo issues. 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 Ct chest was done - CTA - no PE treatmetn for pneumonia LTAC eval pt using O2 - has neck line and drains CA 19-9 - 57 - elevated will look into repeat dvt study of rt leg - Patient Problems (1) Pelvic mass in male Current Visit: Yes Status: Acute Subjective Date of service: 06/13/18 Principal diagnosis: sq cell ca Interval history: pt had diverting colostomy 05/26 has colostomy on o2 Objective - Constitutional Vitals: Last Vital Signs Temp 98.0 F 06/13/18 03:46 Pulse 75 06/13/18 00:11 Resp 18 06/13/18 03:46 BP 133/78 06/13/18 03:46 Pulse Ox 100 06/13/18 00:11 General appearance: no acute distress Performance status: 4-completely disabled - EENT Eyes: PERRL ENT: clear oral mucosa Lymph node exam: negative cervical, negative supraclavicular - Respiratory Respiratory effort: Positive: normal Respiratory: bilateral: CTA - Cardiovascular Heart Sounds: Present: S1 & S2 Extremities: No edema - Gastrointestinal General gastrointestinal: Present: soft, non-tender Rectal Exam: deferred - Genitourinary Male genitourinary: Present: deferred - Integumentary Integumentary: warm - Musculoskeletal Musculoskeletal: strength equal bilaterally - Neurologic Neurologic: moves all extremities - Psychiatric Psychiatric: appropriate mood/affect - Labs Lab Results: Laboratory Results - last 24 hr 06/12/18 06/12/18 06/12/18 11:43 16:00 23:56 Sodium Potassium Chloride Carbon Dioxide Anion Gap BUN Creatinine Estimated GFR BUN/Creatinine Ratio Glucose POC Glucose 126 H 123 H 128 H Calcium Phosphorus Magnesium 06/13/18 06/13/18 03:44 05:59 Sodium 134 L Potassium 3.9 Chloride 102.9 Carbon Dioxide 20 L Anion Gap 15 BUN 69 H Creatinine 2.9 H Estimated GFR 28 BUN/Creatinine Ratio 24 Glucose 113 H POC Glucose 121 H Calcium 7.8 L Phosphorus 4.20 Magnesium 2.10
[2018-06-13] MEDS: NORMODYNE PO SCH ×3 (09:28→21:23)
--- NOTE | 2018-06-13 09:57 | Progress Note ---
Assessment and Plan 1. Acute kidney injury: Initial MARYLOU in the setting of bilateral hydronephrosis secondary to pelvic mass , now s/p bilateral nephrostomy. Recurrent Acute kidney injury likely ATN now. Patient required urgent hemodialysis due to worsening renal function and persistent hyperkalemia. Last dialyzed on 06/02/18. BUN and Creatinine level are improving. Renal prognosis is guarded. On PPN / TPN. 2. Electrolytes: Hypernatremia, improved. Monitor. 3. Bowel obstruction: S/p ostomy. 4. Bilateral hydronephrosis: Secondary to pelvic mass. S/p bilateral nephrostomy. S/p Cysto and drainage of abscess. 5. Respiratory failure: S/p extubated. 6. Hypertension: On Clonidine patch and PO Labetalol. Monitor BP. 7. Sepsis: Complicated UTI and pneumonia. 8. Anemia. 9. 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 Await LTAC placement. Subjective Date of service: 06/13/18 Principal diagnosis: sq cell ca -prostate Interval history: Patient was seen and examined at the bedside. On liquid diet. Objective - Vital Signs Vital signs: Vital Signs - 12hr 06/13/18 06/13/18 06/13/18 00:00 00:06 00:10 Temperature 99.0 F Pulse Rate 79 Respiratory 18 28 H Rate Blood Pressure 124/83 O2 Sat by Pulse 100 98 Oximetry 06/13/18 06/13/18 06/13/18 00:11 03:46 08:19 Temperature 99.0 F 98.0 F Pulse Rate 75 76 Respiratory 28 H 18 18 Rate Blood Pressure 133/78 143/80 O2 Sat by Pulse 100 96 Oximetry 06/13/18 08:56 Temperature Pulse Rate Respiratory Rate Blood Pressure O2 Sat by Pulse 96 Oximetry - General Appearance General appearance: well-developed, appears stated age, other (not in distress) EENT: ATNC, PERRL, mucous membranes dry, hearing intact, vision intact Neck: supple Respiratory: Present: Clear to Ascultation Cardiology: regular, S1S2, no murmurs Gastrointestinal: normoactive bowel sounds, distended, other (abdominal binder, bilateral nephrostomy, ostomy and drain noted) Integumentary: no rash, warm and dry Neurologic: no focal deficit Musculoskeletal: other (no edema) - Lab 06/14/18 06:42 06/14/18 06:42 Most recent lab results Calcium 7.8 mg/dL (8.4-10.2) L 06/13/18 05:59 Phosphorus 4.20 mg/dL (2.5-4.5) 06/13/18 05:59 Magnesium 2.10 mg/dL (1.7-2.3) 06/13/18 05:59 Urine Creatinine 41.2 mg/dL (0.1-20.0) H 06/11/18 07:41 Urine Sodium 79 mmol/L 06/11/18 07:41 Urine Total Protein 142 mg/dL (5-11.8) H 06/11/18 07:41
--- NOTE | 2018-06-13 10:08 | Progress Note ---
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 Continue pain control PRN Bilateral pneumonia (possibly aspiration) Monitor respiratory status Continue Nebs PRN Continue antibiotic Sepsis Continue Zosyn Acute kidney injury (obstructive uropathy vs contrast nephropathy) was on hemodialysis temporarily. Stable renal function. Dialysis catheter removed as per nephrology Continue to monitor BMP and kidney fuction Had bilateral nephrostomy tubes placed 05/14/[address] Freeman. Acute deep venous thrombosis Anticoagulation on hold because of anemia, bilateral nephrostomy tubes and abdominal surgerys Moderate to severe protein calorie malnutrition Continue tube feeding Started on diet and tolerating Hypokalemia, now resolved Potassium and mag replacement as needed Anemia due to Chronic illness s/p PRBC transfusion Bilateral moderate pleural effusion, for thoracentesis Plan is for LTAC. Had lengthy family meeting on 06/09/18. present was Dr. Lopez, Dr. Bass, myself, gearcase assembler and Karen, from admin, and Patient's sister Adriana and brother. We discussed diagnosis, management and plan and mentioned plan is for him to go to LTAC, and later chemotherapy when strong enough. Al her questions were answered. Patient is medically stable to go to LTAC. gearcase assembler working on placement. History Interval history: feels better, less abdominal pain, tolerating diet No fever Hospitalist Physical - Physical exam Narrative exam: GEN:Not in acute distress, lying in bed, ill looking, HEENT: Normocephalic, atraumatic, Neck: supple, No JVD Lungs: Decreased breath sounds both bases, no crackles Heart:S1 and S2 regular no murmurs, rubs or gallop Abd:soft, mild tender, ostomy, bilat nephrostomy tubes, bowel sounds present Ext: No edema, clubbing or cyanosis Neuro: Awake, alert,oriented x 3, moves all ext - Constitutional Vitals: Temp Pulse Resp BP Pulse Ox 98.0 F 76 18 143/80 96 06/13/18 03:46 06/13/18 08:19 06/13/18 08:19 06/13/18 08:19 06/13/18 08:56 General appearance: Present: no acute distress Results - Labs CBC & Chem 7: 06/12/18 04:12 06/13/18 05:59 Labs: Laboratory Last Values WBC 10.8 K/mm3 (4.5-11.0) 06/12/18 04:12 RBC 3.18 M/mm3 (3.65-5.03) L 06/12/18 04:12 Hgb 9.5 gm/dl (11.8-15.2) L 06/12/18 04:12 Hct 28.7 % (35.5-45.6) L 06/12/18 04:12 MCV 90 fl (84-94) 06/12/18 04:12 MCH 30 pg (28-32) 06/12/18 04:12 MCHC 33 % (32-34) 06/12/18 04:12 RDW 18.5 % (13.2-15.2) H 06/12/18 04:12 Plt Count 326 K/mm3 (140-440) 06/12/18 04:12 Lymph % (Auto) 8.1 % (13.4-35.0) L 06/12/18 04:12 [place] % (Auto) 6.1 % (0.0-7.3) 06/12/18 04:12 Eos % (Auto) 0.5 % (0.0-4.3) 06/12/18 04:12 Baso % (Auto) 0.7 % (0.0-1.8) 06/12/18 04:12 Lymph # 0.9 K/mm3 (1.2-5.4) L 06/12/18 04:12 [place] # 0.7 K/mm3 (0.0-0.8) 06/12/18 04:12 Eos # 0.1 K/mm3 (0.0-0.4) 06/12/18 04:12 Baso # 0.1 K/mm3 (0.0-0.1) 06/12/18 04:12 Add Manual Diff Complete 05/31/18 04:50 Total Counted 100 05/31/18 04:50 Seg Neutrophils % 84.6 % (40.0-70.0) H 06/12/18 04:12 Seg Neuts % (Manual) 91.0 % (40.0-70.0) H 05/31/18 04:50 Band Neutrophils % 2.0 % 05/31/18 04:50 Lymphocytes % (Manual) 2.0 % (13.4-35.0) L 05/31/18 04:50 Reactive Lymphs % (Man) 0 % 05/31/18 04:50 Monocytes % (Manual) 2.0 % (0.0-7.3) 05/31/18 04:50 Eosinophils % (Manual) 1.0 % (0.0-4.3) 05/31/18 04:50 Basophils % (Manual) 0 % (0.0-1.8) 05/31/18 04:50 Metamyelocytes % 1.0 % 05/31/18 04:50 Myelocytes % 1.0 % 05/31/18 04:50 Promyelocytes % 0 % 05/31/18 04:50 Blast Cells % 0 % 05/31/18 04:50 Nucleated RBC % Not Reportable 05/31/18 04:50 Seg Neutrophils # 9.1 K/mm3 (1.8-7.7) H 06/12/18 04:12 Seg Neutrophils # Man 17.0 K/mm3 (1.8-7.7) H 05/31/18 04:50 Band Neutrophils # 0.4 K/mm3 05/31/18 04:50 Lymphocytes # (Manual) 0.4 K/mm3 (1.2-5.4) L 05/31/18 04:50 Abs React Lymphs (Man) 0.0 K/mm3 05/31/18 04:50 Monocytes # (Manual) 0.4 K/mm3 (0.0-0.8) 05/31/18 04:50 Eosinophils # (Manual) 0.2 K/mm3 (0.0-0.4) 05/31/18 04:50 Basophils # (Manual) 0.0 K/mm3 (0.0-0.1) 05/31/18 04:50 Metamyelocytes # 0.2 K/mm3 05/31/18 04:50 Myelocytes # 0.2 K/mm3 05/31/18 04:50 Promyelocytes # 0.0 K/mm3 05/31/18 04:50 Blast Cells # 0.0 K/mm3 05/31/18 04:50 WBC Morphology Not Reportable 05/31/18 04:50 Hypersegmented Neuts Not Reportable 05/31/18 04:50 Hyposegmented Neuts Not Reportable 05/31/18 04:50 Hypogranular Neuts Not Reportable 05/31/18 04:50 Smudge Cells Not Reportable 05/31/18 04:50 Toxic Granulation Not Reportable 05/31/18 04:50 Toxic Vacuolation Not Reportable 05/31/18 04:50 Dohle Bodies Not Reportable 05/31/18 04:50 Pelger-Huet Anomaly Not Reportable 05/31/18 04:50 Mahesh Rods Not Reportable 05/31/18 04:50 Platelet Estimate Appears normal 05/31/18 04:50 Clumped Platelets Not Reportable 05/31/18 04:50 Plt Clumps, EDTA Not Reportable 05/31/18 04:50 Large Platelets Not Reportable 05/31/18 04:50 Giant Platelets Not Reportable 05/31/18 04:50 Platelet Satelliting Not Reportable 05/31/18 04:50 Plt Morphology Comment Not Reportable 05/31/18 04:50 RBC Morphology Not Reportable 05/31/18 04:50 Dimorphic RBCs Not Reportable 05/31/18 04:50 Polychromasia Not Reportable 05/31/18 04:50 Hypochromasia Few 05/31/18 04:50 Poikilocytosis Not Reportable 05/31/18 04:50 Anisocytosis 1+ 05/31/18 04:50 Microcytosis Few 05/31/18 04:50 Macrocytosis Not Reportable 05/31/18 04:50 Spherocytes Not Reportable 05/31/18 04:50 Pappenheimer Bodies Not Reportable 05/31/18 04:50 Sickle Cells Not Reportable 05/31/18 04:50 Target Cells Rare 05/31/18 04:50 Tear Drop Cells Not Reportable 05/31/18 04:50 Ovalocytes 1+ 05/31/18 04:50 Helmet Cells Not Reportable 05/31/18 04:50 Hernandez-Fleischmanns Bodies Not Reportable 05/31/18 04:50 Kulm Rings Not Reportable 05/31/18 04:50 [place] Cells Not Reportable 05/31/18 04:50 Bite Cells Not Reportable 05/31/18 04:50 Crenated Cell Not Reportable 05/31/18 04:50 Elliptocytes Not Reportable 05/31/18 04:50 Acanthocytes (Spur) Not Reportable 05/31/18 04:50 Rouleaux Not Reportable 05/31/18 04:50 Hemoglobin C Crystals Not Reportable 05/31/18 04:50 Schistocytes Not Reportable 05/31/18 04:50 Malaria parasites Not Reportable 05/31/18 04:50 Mk Bodies Not Reportable 05/31/18 04:50 Hem Pathologist Commnt No 05/31/18 04:50 PT 17.1 Sec. (12.2-14.9) H 06/03/18 09:18 INR 1.34 (0.87-1.13) H 06/03/18 09:18 APTT 40.0 Sec. (24.2-36.6) H 05/23/18 09:03 POC ABG pH 7.362 (7.35-7.45) 05/31/18 09:58 POC ABG pCO2 36.4 (35-45) 05/31/18 09:58 POC ABG pO2 101 (80-105) 05/31/18 09:58 POC ABG HCO3 20.7 05/31/18 09:58 POC ABG Total CO2 22 05/31/18 09:58 POC ABG O2 Sat 98 05/31/18 09:58 POC ABG Base Excess -5 05/31/18 09:58 FiO2 40 % 05/31/18 09:58 Sodium 134 mmol/L (137-145) L 06/13/18 05:59 Potassium 3.9 mmol/L (3.6-5.0) 06/13/18 05:59 Chloride 102.9 mmol/L (98-107) 06/13/18 05:59 Carbon Dioxide 20 mmol/L (22-30) L 06/13/18 05:59 Anion Gap 15 mmol/L 06/13/18 05:59 BUN 69 mg/dL (9-20) H 06/13/18 05:59 Creatinine 2.9 mg/dL (0.8-1.5) H 06/13/18 05:59 Estimated GFR 28 ml/min 06/13/18 05:59 BUN/Creatinine Ratio 24 % 06/13/18 05:59 Glucose 113 mg/dL (75-100) H 06/13/18 05:59 POC Glucose 121 (70-105) H 06/13/18 03:44 Hemoglobin A1c 5.7 % (4-6) 05/14/18 05:05 Lactic Acid 3.80 mmol/L (0.7-2.0) H* 05/26/18 11:00 Calcium 7.8 mg/dL (8.4-10.2) L 06/13/18 05:59 Phosphorus 4.20 mg/dL (2.5-4.5) 06/13/18 05:59 Magnesium 2.10 mg/dL (1.7-2.3) 06/13/18 05:59 Iron 24 ug/dL (49-181) L 05/16/18 07:02 TIBC 160 mcg/dL (250-450) L 05/16/18 07:02 Ferritin 325.8 ng/mL (13.0-400.0) 05/16/18 07:02 Total Bilirubin 0.30 mg/dL (0.1-1.2) 06/12/18 04:12 AST 45 units/L (5-40) H 06/12/18 04:12 ALT 29 units/L (7-56) 06/12/18 04:12 Alkaline Phosphatase 200 units/L (35-129) H 06/12/18 04:12 Lactate Dehydrogenase 297 units/L (91-180) H 06/08/18 21:36 Total Creatine Kinase 34 units/L (55-170) L 06/12/18 04:12 CK-MB (CK-2) 2.3 ng/mL (0.0-4.0) 05/25/18 22:46 CK-MB (CK-2) Rel Index 1.4 (0-4) 05/25/18 22:46 C-Reactive Protein 3.60 mg/dL (0.00-1.30) H 06/10/18 17:15 Total Protein 7.3 g/dL (6.3-8.2) 06/12/18 04:12 Albumin 1.7 g/dL (3.9-5) L 06/12/18 04:12 Albumin/Globulin Ratio 0.3 % 06/12/18 04:12 Triglycerides 112 mg/dL (2-149) 06/03/18 03:31 CA 19-9 Antigen 57 U/mL (<34) H 06/08/18 21:43 Prostate Specific Ag 0.96 ng/mL (0.00-4.00) 05/14/18 13:29 Vitamin B12 359.2 pg/mL (211-911) 05/16/18 07:02 Folate 5.39 ng/mL (7.3-26.0) L 05/16/18 07:02 TSH 3.180 mlU/mL (0.270-4.200) 05/14/18 05:05 PTH Intact 65.37 pg/mL (15-65) H 05/14/18 05:05 Urine Color Yellow (Yellow) 06/11/18 07:41 Urine Turbidity Slightly-cloudy (Clear) 06/11/18 07:41 Urine pH 6.0 (5.0-7.0) 06/11/18 07:41 Ur Specific [place] 1.011 (1.003-1.030) 06/11/18 07:41 Urine Protein 100 mg/dl mg/dL (Negative) 06/11/18 07:41 Urine Glucose (UA) 150 mg/dL (Negative) 06/11/18 07:41 Urine Ketones Neg mg/dL (Negative) 06/11/18 07:41 Urine Blood Sm (Negative) 06/11/18 07:41 Urine Nitrite Neg (Negative) 06/11/18 07:41 Urine Bilirubin Neg (Negative) 06/11/18 07:41 Urine Urobilinogen < 2.0 mg/dL (<2.0) 06/11/18 07:41 Ur Leukocyte Esterase Sm (Negative) 06/11/18 07:41 Urine WBC (Auto) 10.0 /HPF (0.0-6.0) H 06/11/18 07:41 Urine RBC (Auto) 5.0 /HPF (0.0-6.0) 06/11/18 07:41 U Epithel Cells (Auto) 1.0 /HPF (0-13.0) 06/11/18 07:41 Urine Bacteria (Auto) 1+ /HPF (Negative) 06/11/18 07:41 Urine WBC Clumps Few /HPF 05/13/18 19:39 Urine Mucus Few /HPF 06/11/18 07:41 Ur Yeast w Hyphae Few /HPF 06/11/18 07:41 Urine Yeast (Bud[place]) Few /HPF 06/11/18 07:41 Urine Creatinine 41.2 mg/dL (0.1-20.0) H 06/11/18 07:41 Urine Sodium 79 mmol/L 06/11/18 07:41 Urine Potassium 13.27 mmol/L 06/11/18 07:41 Urine Chloride 49.2 mmolL (110-250) L 06/11/18 07:41 Urine Total Protein 142 mg/dL (5-11.8) H 06/11/18 07:41 Fluid Type Ascitic 06/03/18 Unknown Fluid Color Yellow 06/03/18 Unknown Fluid Appearance Cloudy 06/03/18 Unknown Fluid WBC 16715 /mm3 06/03/18 Unknown Fluid RBC 9 /mm3 06/03/18 Unknown Fluid Seg Neutrophils 98.0 % 06/03/18 Unknown Fluid Lymphocytes 2.0 % 06/03/18 Unknown Fluid Reactive Lymphs 0 % 06/03/18 Unknown Fluid Monocytes 0 % 06/03/18 Unknown Fluid Eosinophils 0 % 06/03/18 Unknown Fluid Basophils 0 % 06/03/18 Unknown Fluid Glucose 10 mg/dL (40-70) L 06/03/18 Unknown Fluid Total Protein 3.7 (15.0-45.0) L 06/03/18 Unknown Fluid Albumin 0.8 g/dL 06/03/18 Unknown Fluid LDH > 55601 06/03/18 Unknown Fluid Amylase 126 06/03/18 Unknown Vancomycin Trough 25.1 ug/mL (5.0-20.0) H 05/25/18 22:46 Random Vancomycin 34.3 ug/mL (0-40.0) 05/26/18 11:01 Urine Opiates Screen Presumptive negative 06/11/18 07:41 Urine Methadone Screen Presumptive negative 06/11/18 07:41 Ur Barbiturates Screen Presumptive negative 06/11/18 07:41 Ur Phencyclidine Scrn Presumptive negative 06/11/18 07:41 Ur Amphetamines Screen Presumptive negative 06/11/18 07:41 U Benzodiazepines Scrn Presumptive negative 06/11/18 07:41 Urine Cocaine Screen Presumptive negative 06/11/18 07:41 U Marijuana (THC) Screen Presumptive negative 06/11/18 07:41 Drugs of Abuse Note Disclamer 06/11/18 07:41 ZEUS Screen Negative (Negative) 05/14/18 05:05 Proteinase 3 (PR3) Ab <1.0 AI (<1.0) 05/14/18 05:05 Myeloperoxidase Ab <1.0 AI (<1.0) 05/14/18 05:05 Complement C3 147 mg/dL (82-185) 05/14/18 05:05 Complement C4 45 mg/dL (15-53) 05/14/18 05:05 Hepatitis A IgM Ab Nonreactive (NonReactive) 05/27/18 13:41 Hep Bs Antigen Non-reactive (Negative) 05/27/18 13:41 Hep B Core IgM Ab Non-reactive (NonReactive) 05/27/18 13:41 Hepatitis C Antibody Non-reactive (NonReactive) 05/27/18 13:41 Miscellaneous Test Flexitest 1 H 06/09/18 07:37 Blood Type O POSITIVE 06/09/18 13:24 Antibody Screen Negative 06/09/18 13:24 Crossmatch See Detail 06/09/18 13:24
[2018-06-13] MEDS: HEPARIN SUB-Q SCH (10:25)
[2018-06-13] MEDS: FOLVITE PO SCH (10:27)
[2018-06-13] MEDS: PEPCID IV SCH (11:31)
[2018-06-13] MEDS: FERROUS SULFATE PO SCH ×2 (11:31→21:23)
--- NOTE | 2018-06-13 13:03 | Progress Note ---
Assessment and Plan Pt surgically status quo. radha diet Abd non tender. ostomy full of stool surgically stable will follow prn will need retention sutures in place for another 3 wks Selected Entries 06/13/18 11:33 Temperature 98.0 F Pulse Rate 95 H Respiratory 18 Rate Blood Pressure 155/87 Laboratory Tests 06/13/18 05:59 Sodium 134 L Potassium 3.9 Chloride 102.9 Carbon Dioxide 20 L BUN 69 H Creatinine 2.9 H Objective Vital Signs - 12hr 06/13/18 06/13/18 06/13/18 03:46 08:19 08:56 Temperature 98.0 F Pulse Rate 76 Respiratory 18 18 Rate Blood Pressure 133/78 143/80 O2 Sat by Pulse 96 96 Oximetry 06/13/18 06/13/18 09:28 11:33 Temperature 98.0 F Pulse Rate 76 95 H Respiratory 18 Rate Blood Pressure 143/80 155/87 O2 Sat by Pulse 97 Oximetry - Labs 06/12/18 04:12 06/13/18 05:59 Diabetes panel 06/13/18 Range/Units 05:59 Sodium 134 L (137-145) mmol/L Potassium 3.9 (3.6-5.0) mmol/L Chloride 102.9 (98-107) mmol/L Carbon Dioxide 20 L (22-30) mmol/L BUN 69 H (9-20) mg/dL Creatinine 2.9 H (0.8-1.5) mg/dL Glucose 113 H (75-100) mg/dL Calcium 7.8 L (8.4-10.2) mg/dL Calcium panel 06/13/18 Range/Units 05:59 Calcium 7.8 L (8.4-10.2) mg/dL Phosphorus 4.20 (2.5-4.5) mg/dL Pituitary panel 06/13/18 Range/Units 05:59 Sodium 134 L (137-145) mmol/L Potassium 3.9 (3.6-5.0) mmol/L Chloride 102.9 (98-107) mmol/L Carbon Dioxide 20 L (22-30) mmol/L BUN 69 H (9-20) mg/dL Creatinine 2.9 H (0.8-1.5) mg/dL Glucose 113 H (75-100) mg/dL Calcium 7.8 L (8.4-10.2) mg/dL Adrenal panel 06/13/18 Range/Units 05:59 Sodium 134 L (137-145) mmol/L Potassium 3.9 (3.6-5.0) mmol/L Chloride 102.9 (98-107) mmol/L Carbon Dioxide 20 L (22-30) mmol/L BUN 69 H (9-20) mg/dL Creatinine 2.9 H (0.8-1.5) mg/dL Glucose 113 H (75-100) mg/dL Calcium 7.8 L (8.4-10.2) mg/dL
[2018-06-13] MEDS: D5W 1,000 ML IV SCH (14:30)
--- NOTE | 2018-06-13 15:28 | Progress Note ---
Assessment and Plan Assessment: 1) Sepsis: Improved. Etiology unclear - most likely necrotic malignancy ? abscess +/- UTI +/- LLL pneumonia -Blood cx 05/15 neg, 05/20 neg, 05/26 neg -CRP=40 -->11 -Procal=79 - 2) Candiduria: minimal pyuria of 10 WBCs/hpf in the setting of avila catheter and broad spectrum abx use, would consider it colonization rather than true infection, no antifungal indicated. 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 Enlarged pelvic lymph nodes, bilateral hydronephrosis. -S/p 05/14/18 left and right nephrostomy tube placements and mass biopsy -S/p 05/18/2018 cystoscopy with right great toe pyelogram found to have a bladder mass and prostate mass -S/p 05/26/18 diverting colostomy. 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 Similar to prior. Differential diagnosis includes low-grade incomplete obstruction, ileus, and enterocolitis. -CT 06/06 - Large mass is seen again in the pelvis with central low density. suggesting necrosis. Cannot exclude superimposed infectious process. -Paracenthesis 06/03 + [facility] -06/07 CT guided placement of drainage catheter of purulent appearing serous fluid aspirated. Samples were sent for laboratory analysis. -06/08 Small Bowel Xray - No evidence of Small bowel obstruction 4) LLL pneumonia, sputum cx + Yeast 5) MARYLOU, now requiring HD. Plan: - continue upon discharge IV Zosyn IV 2.25 g q12 while on HD total 3 weeks until 06/24 at [facility] - no treatment needed for Candiduria, likely reflective of colonization - weekly CMP while on IV Zosyn at [facility] - ID clinic follow up not needed, follow up PRN Will sign off. Please call with questions. [facility] M: [phone] O:[phone] Subjective Date of service: 06/13/18 Principal diagnosis: sq cell ca Interval history: Patient laying alert. Patient stated that he was feeling better today. Microbiology: Blood cultures: 05/15 neg 05/20 neg 05/26 ngtd Urine cultures: 05/21 neg 05/27 neg 06/10 [place] Sputum: 05/27 yeast OR cultures: 05/26 Bacteroides fragilis Peritoneal Fluid 06/03 - [facility] Current Antimicrobials: Zosyn Previous Antimicrobials: Cefepime zyvox Levaquin Objective - Exam Narrative Exam: General appearance: Alert in NAD, Eyes: anicteric sclerae, moist conjunctivae; no lid-lag; PERRLA HENT: Atraumatic; oropharynx +EET +NGT. Normal external ears. +temporal wasting Neck: Trachea midline; supple, no thyromegaly or lymphadenopathy Lungs: amy rhonchi CV: RRR, no murmurs Abdomen: Soft, +diverting colostomy +multiple drains and amy PC nephros Extremities: No peripheral edema or extremity lymphadenopathy Skin: Normal temperature, turgor and texture; no rash, ulcers or subcutaneous nodules Psych: alert and oriented to self and place. Neuro: Alert and oriented to self and place Lines: right fem line, right IJ - Constitutional Vitals: Vital Signs Temp Pulse Resp BP Pulse Ox 98.0 F 95 H 18 155/87 97 06/13/18 11:33 06/13/18 11:33 06/13/18 11:33 06/13/18 11:33 06/13/18 11:33 Temperature -Last 24 Hours Temperature 98.0 F Temperature 98.0 F Temperature 99.0 F Temperature 99.0 F Temperature 97.8 F - Labs CBC & Chem 7: 06/12/18 04:12 06/13/18 05:59 Labs: Abnormal lab results 06/12/18 06/12/18 06/13/18 Range/Units 16:00 23:56 03:44 Sodium (137-145) mmol/L Carbon Dioxide (22-30) mmol/L BUN (9-20) mg/dL Creatinine (0.8-1.5) mg/dL Glucose (75-100) mg/dL POC Glucose 123 H 128 H 121 H (70-105) Calcium (8.4-10.2) mg/dL 06/13/18 Range/Units 05:59 Sodium 134 L (137-145) mmol/L Carbon Dioxide 20 L (22-30) mmol/L BUN 69 H (9-20) mg/dL Creatinine 2.9 H (0.8-1.5) mg/dL Glucose 113 H (75-100) mg/dL POC Glucose (70-105) Calcium 7.8 L (8.4-10.2) mg/dL
--- NOTE | 2018-06-13 15:44 | Progress Note ---
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 Hypertensive urgency, Sinus tachycardia with HR 160s CTA negative for PE Hyperkalemia Hypernatrmia Metabolic acidosis Acute blood loss anemia Moderate to severe protein calorie malnutrition - continue supplemental oxygen to keep sats > 90% - NIPPV prn for work of breathing -therapeutic thoracentesis -hold anticoagulation for thoracentesis, resume post procedure - continue bronchodilators with pulmonary hygiene per RT - HD/UF for toxin and volume clearance - continue anti-infective's per ID recs - continue TPN and enteral nutrition - Malignancy per heme-oncologist - continue mobility protocol for pressure ulcer prevention -PT/OT as tolerated - s/p surgery 05/26 (had ex-lap; matted abdominal organs, pus - Enterostomy tube decompression,loop colostomy and large triple lumen sump drainage of pelvis) - s/p bilateral nephrostomy tubes placed 05/14/[address] Freeman.(CTA negative for P.E.) - continue other care per attending / other consultants -discharge planning...LTACH evaluation on going Full code status Subjective Date of service: 06/13/18 Principal diagnosis: sq cell ca Interval history: Patient is seen today for: Acute Hypoxemic Resp Failure; Sepsis Syndrome; Acute VTE; Prostate Cancer Seen and examined. vitals, labs, medications, chart reviewed.; 24hour events reviewed; nursing and respiratory care staff consulted; no adverse overnight events reported to me; Still has some shortness of breath. He denies any chills, no fevers, no nausea or vomiting. Tolerating some oral intake, ongoing TPN. Discussed CXR/Thoracic USS findings and the need for therapeutic thoracentesis. Objective Vital Signs - 12hr 06/13/18 06/13/18 06/13/18 03:46 08:19 08:56 Temperature 98.0 F Pulse Rate 76 Respiratory 18 18 Rate Blood Pressure 133/78 143/80 O2 Sat by Pulse 96 96 Oximetry 06/13/18 06/13/18 09:28 11:33 Temperature 98.0 F Pulse Rate 76 95 H Respiratory 18 Rate Blood Pressure 143/80 155/87 O2 Sat by Pulse 97 Oximetry Constitutional: no acute distress, asleep, other (chronically ill looking middle aged AAM, normocephalic and atraumatic, ) Eyes: non-icteric ENT: oropharynx moist Neck: supple, no lymphadenopathy, no JVD, other (no thyromegaly) Effort: mildly labored Ascultation: Bilateral: diminished breath sounds, rhonchi (scant in bases) Percussion: Bilateral: not dull Cardiovascular: regular rate and rhythm, other (No R/M) Gastrointestinal: hypoactive bowel sounds, soft, tender (mild), other (Distended ; No palpable HSM, bilateral nephrostomy tubes,colostomy, ZAKI drain) Integumentary: other (femoral vascath) Extremities: no cyanosis, no edema, pulses normal, no ischemia or petechiae Neurologic: normal mental status, non-focal exam, pupils equal and round, other (weak) Psychiatric: mood appropriate, affect normal CBC and BMP: 06/12/18 04:12 06/13/18 05:59 ABG, PT/INR, D-dimer: ABG POC ABG pH 7.362 (7.35-7.45) 05/31/18 09:58 POC ABG pCO2 36.4 (35-45) 05/31/18 09:58 POC ABG pO2 101 (80-105) 05/31/18 09:58 POC ABG HCO3 20.7 05/31/18 09:58 POC ABG Total CO2 22 05/31/18 09:58 POC ABG O2 Sat 98 05/31/18 09:58 PT/INR, D-dimer PT 17.1 Sec. (12.2-14.9) H 06/03/18 09:18 INR 1.34 (0.87-1.13) H 06/03/18 09:18 Abnormal lab findings: Abnormal Labs 05/13/18 05/13/18 05/13/18 04:27 04:27 19:39 WBC RBC 3.13 L Hgb 9.4 L Hct 26.8 L MCHC 35 H RDW Plt Count Lymph % (Auto) [place] % (Auto) 9.6 H Lymph # [place] # Seg Neutrophils % Seg Neuts % (Manual) Lymphocytes % (Manual) Seg Neutrophils # Seg Neutrophils # Man Lymphocytes # (Manual) PT INR APTT POC ABG pH POC ABG pCO2 POC ABG pO2 Sodium 132 L Potassium 5.5 H Chloride 94.1 L Carbon Dioxide 19 L BUN 72 H Creatinine 14.4 H Glucose POC Glucose Lactic Acid Calcium Phosphorus Magnesium Iron TIBC AST ALT Alkaline Phosphatase Lactate Dehydrogenase Total Creatine Kinase C-Reactive Protein Total Protein Albumin 2.8 L CA 19-9 Antigen Folate PTH Intact Urine WBC (Auto) Urine Creatinine 66.0 H Urine Chloride 27.8 L Urine Total Protein 24 H Fluid Glucose Fluid Total Protein Vancomycin Trough Miscellaneous Test Crossmatch 05/13/18 05/14/18 05/14/18 20:00 05:05 05:05 WBC RBC Hgb Hct MCHC RDW Plt Count Lymph % (Auto) [place] % (Auto) Lymph # [place] # Seg Neutrophils % Seg Neuts % (Manual) Lymphocytes % (Manual) Seg Neutrophils # Seg Neutrophils # Man Lymphocytes # (Manual) PT INR APTT POC ABG pH POC ABG pCO2 POC ABG pO2 Sodium 132 L 131 L Potassium 5.2 H 5.8 H Chloride 93.0 L 95.6 L Carbon Dioxide 19 L 20 L BUN 74 H 81 H Creatinine 15.0 H 16.6 H Glucose 134 H 127 H POC Glucose Lactic Acid Calcium 8.2 L 7.9 L Phosphorus 6.30 H Magnesium Iron TIBC AST ALT Alkaline Phosphatase Lactate Dehydrogenase Total Creatine Kinase 236 H C-Reactive Protein Total Protein Albumin CA 19-9 Antigen Folate PTH Intact 65.37 H Urine WBC (Auto) Urine Creatinine Urine Chloride Urine Total Protein Fluid Glucose Fluid Total Protein Vancomycin Trough Miscellaneous Test Crossmatch 05/14/18 05/14/18 05/14/18 09:28 10:56 13:29 WBC RBC Hgb Hct MCHC RDW Plt Count Lymph % (Auto) [place] % (Auto) Lymph # [place] # Seg Neutrophils % Seg Neuts % (Manual) Lymphocytes % (Manual) Seg Neutrophils # Seg Neutrophils # Man Lymphocytes # (Manual) PT INR APTT 38.2 H POC ABG pH POC ABG pCO2 POC ABG pO2 Sodium Potassium Chloride Carbon Dioxide BUN Creatinine Glucose POC Glucose 127 H 126 H Lactic Acid Calcium Phosphorus Magnesium Iron TIBC AST ALT Alkaline Phosphatase Lactate Dehydrogenase Total Creatine Kinase C-Reactive Protein Total Protein Albumin CA 19-9 Antigen Folate PTH Intact Urine WBC (Auto) Urine Creatinine Urine Chloride Urine Total Protein Fluid Glucose Fluid Total Protein Vancomycin Trough Miscellaneous Test Crossmatch 05/15/18 05/15/18 05/16/18 08:06 08:06 07:02 WBC RBC 2.84 L 2.74 L Hgb 8.5 L 8.5 L Hct 24.2 L 23.5 L MCHC 35 H 36 H RDW Plt Count Lymph % (Auto) [place] % (Auto) 10.4 H 11.0 H Lymph # 1.1 L [place] # 0.9 H Seg Neutrophils % 72.6 H Seg Neuts % (Manual) Lymphocytes % (Manual) Seg Neutrophils # Seg Neutrophils # Man Lymphocytes # (Manual) PT INR APTT POC ABG pH POC ABG pCO2 POC ABG pO2 Sodium Potassium Chloride Carbon Dioxide 19 L BUN 66 H Creatinine 12.0 H Glucose 115 H POC Glucose Lactic Acid Calcium 8.1 L Phosphorus Magnesium Iron TIBC AST ALT Alkaline Phosphatase Lactate Dehydrogenase Total Creatine Kinase C-Reactive Protein Total Protein Albumin CA 19-9 Antigen Folate PTH Intact Urine WBC (Auto) Urine Creatinine Urine Chloride Urine Total Protein Fluid Glucose Fluid Total Protein Vancomycin Trough Miscellaneous Test Crossmatch 05/16/18 05/16/18 05/17/18 07:02 07:02 05:08 WBC RBC 2.78 L Hgb 8.2 L Hct 23.9 L MCHC RDW Plt Count Lymph % (Auto) [place] % (Auto) 13.9 H Lymph # [place] # 0.9 H Seg Neutrophils % Seg Neuts % (Manual) Lymphocytes % (Manual) Seg Neutrophils # Seg Neutrophils # Man Lymphocytes # (Manual) PT INR APTT POC ABG pH POC ABG pCO2 POC ABG pO2 Sodium Potassium Chloride Carbon Dioxide BUN 28 H Creatinine 2.4 H D Glucose POC Glucose Lactic Acid Calcium 8.3 L Phosphorus Magnesium 1.50 L Iron 24 L TIBC 160 L AST ALT Alkaline Phosphatase Lactate Dehydrogenase Total Creatine Kinase C-Reactive Protein Total Protein Albumin CA 19-9 Antigen Folate 5.39 L PTH Intact Urine WBC (Auto) Urine Creatinine Urine Chloride Urine Total Protein Fluid Glucose Fluid Total Protein Vancomycin Trough Miscellaneous Test Crossmatch 05/17/18 05/18/18 05/18/18 05:08 05:57 05:57 WBC RBC 2.79 L Hgb 8.3 L Hct 24.0 L MCHC 35 H RDW Plt Count Lymph % (Auto) [place] % (Auto) 11.8 H Lymph # [place] # 0.9 H Seg Neutrophils % Seg Neuts % (Manual) Lymphocytes % (Manual) Seg Neutrophils # Seg Neutrophils # Man Lymphocytes # (Manual) PT INR APTT POC ABG pH POC ABG pCO2 POC ABG pO2 Sodium Potassium Chloride Carbon Dioxide BUN Creatinine Glucose POC Glucose Lactic Acid Calcium 7.7 L 8.0 L Phosphorus Magnesium 1.60 L Iron TIBC AST ALT Alkaline Phosphatase Lactate Dehydrogenase Total Creatine Kinase C-Reactive Protein Total Protein Albumin CA 19-9 Antigen Folate PTH Intact Urine WBC (Auto) Urine Creatinine Urine Chloride Urine Total Protein Fluid Glucose Fluid Total Protein Vancomycin Trough Miscellaneous Test Crossmatch 05/19/18 05/19/18 05/20/18 05:33 05:33 05:38 WBC RBC 2.95 L Hgb 8.8 L Hct 25.8 L MCHC RDW Plt Count Lymph % (Auto) 10.1 L [place] % (Auto) Lymph # 1.1 L [place] # Seg Neutrophils % 85.2 H Seg Neuts % (Manual) Lymphocytes % (Manual) Seg Neutrophils # 9.0 H Seg Neutrophils # Man Lymphocytes # (Manual) PT INR APTT POC ABG pH POC ABG pCO2 POC ABG pO2 Sodium 135 L Potassium Chloride Carbon Dioxide BUN Creatinine Glucose 132 H POC Glucose Lactic Acid Calcium 7.8 L 8.3 L Phosphorus Magnesium 1.40 L Iron TIBC AST ALT Alkaline Phosphatase Lactate Dehydrogenase Total Creatine Kinase C-Reactive Protein Total Protein Albumin CA 19-9 Antigen Folate PTH Intact Urine WBC (Auto) Urine Creatinine Urine Chloride Urine Total Protein Fluid Glucose Fluid Total Protein Vancomycin Trough Miscellaneous Test Crossmatch 05/21/18 05/21/18 05/22/18 04:46 15:30 06:49 WBC 20.0 H RBC 2.70 L Hgb 7.8 L Hct 23.3 L MCHC RDW Plt Count Lymph % (Auto) [place] % (Auto) Lymph # [place] # Seg Neutrophils % Seg Neuts % (Manual) 85.0 H Lymphocytes % (Manual) 4.0 L Seg Neutrophils # Seg Neutrophils # Man 17.0 H Lymphocytes # (Manual) 0.8 L PT INR APTT POC ABG pH POC ABG pCO2 POC ABG pO2 Sodium 135 L Potassium 3.5 L Chloride Carbon Dioxide 21 L BUN 22 H Creatinine Glucose POC Glucose Lactic Acid Calcium 8.1 L Phosphorus Magnesium Iron TIBC AST ALT Alkaline Phosphatase Lactate Dehydrogenase Total Creatine Kinase C-Reactive Protein Total Protein Albumin CA 19-9 Antigen Folate PTH Intact Urine WBC (Auto) 28.0 H Urine Creatinine Urine Chloride Urine Total Protein Fluid Glucose Fluid Total Protein Vancomycin Trough Miscellaneous Test Crossmatch 05/22/18 05/22/18 05/23/18 06:49 11:23 09:03 WBC RBC Hgb Hct MCHC RDW Plt Count Lymph % (Auto) [place] % (Auto) Lymph # [place] # Seg Neutrophils % Seg Neuts % (Manual) Lymphocytes % (Manual) Seg Neutrophils # Seg Neutrophils # Man Lymphocytes # (Manual) PT INR APTT POC ABG pH POC ABG pCO2 POC ABG pO2 Sodium 134 L Potassium 3.5 L Chloride Carbon Dioxide 21 L BUN 35 H 36 H Creatinine 1.7 H Glucose 107 H POC Glucose Lactic Acid Calcium 7.9 L Phosphorus Magnesium 2.50 H Iron TIBC AST ALT Alkaline Phosphatase Lactate Dehydrogenase Total Creatine Kinase C-Reactive Protein Total Protein Albumin CA 19-9 Antigen Folate PTH Intact Urine WBC (Auto) Urine Creatinine Urine Chloride Urine Total Protein Fluid Glucose Fluid Total Protein Vancomycin Trough Miscellaneous Test Crossmatch See Detail 05/23/18 05/23/18 05/23/18 09:03 09:03 17:34 WBC 26.3 H RBC 3.57 L Hgb 10.4 L Hct 31.1 L D MCHC RDW Plt Count Lymph % (Auto) [place] % (Auto) Lymph # [place] # Seg Neutrophils % Seg Neuts % (Manual) Lymphocytes % (Manual) Seg Neutrophils # Seg Neutrophils # Man Lymphocytes # (Manual) PT 18.3 H INR 1.43 H APTT 40.0 H POC ABG pH POC ABG pCO2 POC ABG pO2 Sodium Potassium Chloride Carbon Dioxide BUN Creatinine Glucose POC Glucose 108 H Lactic Acid Calcium Phosphorus Magnesium Iron TIBC AST ALT Alkaline Phosphatase Lactate Dehydrogenase Total Creatine Kinase C-Reactive Protein Total Protein Albumin CA 19-9 Antigen Folate PTH Intact Urine WBC (Auto) Urine Creatinine Urine Chloride Urine Total Protein Fluid Glucose Fluid Total Protein Vancomycin Trough Miscellaneous Test Crossmatch 05/23/18 05/24/18 05/24/18 21:14 04:43 08:04 WBC RBC Hgb Hct MCHC RDW Plt Count Lymph % (Auto) [place] % (Auto) Lymph # [place] # Seg Neutrophils % Seg Neuts % (Manual) Lymphocytes % (Manual) Seg Neutrophils # Seg Neutrophils # Man Lymphocytes # (Manual) PT INR APTT POC ABG pH POC ABG pCO2 POC ABG pO2 Sodium 146 H Potassium Chloride 108.6 H Carbon Dioxide BUN 33 H Creatinine Glucose 109 H POC Glucose 110 H 106 H Lactic Acid Calcium 8.3 L Phosphorus Magnesium 2.50 H Iron TIBC AST ALT Alkaline Phosphatase Lactate Dehydrogenase Total Creatine Kinase C-Reactive Protein Total Protein Albumin CA 19-9 Antigen Folate PTH Intact Urine WBC (Auto) Urine Creatinine Urine Chloride Urine Total Protein Fluid Glucose Fluid Total Protein Vancomycin Trough Miscellaneous Test Crossmatch 05/25/18 05/25/18 05/25/18 05:42 05:49 19:50 WBC RBC Hgb Hct MCHC RDW Plt Count Lymph % (Auto) [place] % (Auto) Lymph # [place] # Seg Neutrophils % Seg Neuts % (Manual) Lymphocytes % (Manual) Seg Neutrophils # Seg Neutrophils # Man Lymphocytes # (Manual) PT INR APTT POC ABG pH POC ABG pCO2 POC ABG pO2 Sodium 150 H Potassium Chloride 112.5 H Carbon Dioxide BUN 34 H Creatinine Glucose 102 H POC Glucose 107 H Lactic Acid Calcium Phosphorus Magnesium Iron TIBC AST ALT Alkaline Phosphatase Lactate Dehydrogenase Total Creatine Kinase C-Reactive Protein 34.50 H Total Protein Albumin CA 19-9 Antigen Folate PTH Intact Urine WBC (Auto) Urine Creatinine Urine Chloride Urine Total Protein Fluid Glucose Fluid Total Protein Vancomycin Trough Miscellaneous Test Crossmatch 05/25/18 05/25/18 05/25/18 19:50 21:05 22:46 WBC RBC Hgb Hct MCHC RDW Plt Count Lymph % (Auto) [place] % (Auto) Lymph # [place] # Seg Neutrophils % Seg Neuts % (Manual) Lymphocytes % (Manual) Seg Neutrophils # Seg Neutrophils # Man Lymphocytes # (Manual) PT INR APTT POC ABG pH 7.483 H POC ABG pCO2 24.0 L POC ABG pO2 72 L Sodium Potassium Chloride Carbon Dioxide BUN Creatinine Glucose POC Glucose Lactic Acid 5.90 H* Calcium Phosphorus Magnesium Iron TIBC AST ALT Alkaline Phosphatase Lactate Dehydrogenase Total Creatine Kinase C-Reactive Protein Total Protein Albumin CA 19-9 Antigen Folate PTH Intact Urine WBC (Auto) Urine Creatinine Urine Chloride Urine Total Protein Fluid Glucose Fluid Total Protein Vancomycin Trough 25.1 H Miscellaneous Test Crossmatch 05/25/18 05/26/18 05/26/18 22:46 00:21 00:51 WBC RBC Hgb Hct MCHC RDW Plt Count Lymph % (Auto) [place] % (Auto) Lymph # [place] # Seg Neutrophils % Seg Neuts % (Manual) Lymphocytes % (Manual) Seg Neutrophils # Seg Neutrophils # Man Lymphocytes # (Manual) PT INR APTT POC ABG pH POC ABG pCO2 POC ABG pO2 Sodium Potassium Chloride Carbon Dioxide BUN Creatinine Glucose POC Glucose 133 H Lactic Acid 8.10 H* 6.20 H* Calcium Phosphorus Magnesium Iron TIBC AST ALT Alkaline Phosphatase Lactate Dehydrogenase Total Creatine Kinase C-Reactive Protein Total Protein Albumin CA 19-9 Antigen Folate PTH Intact Urine WBC (Auto) Urine Creatinine Urine Chloride Urine Total Protein Fluid Glucose Fluid Total Protein Vancomycin Trough Miscellaneous Test Crossmatch 05/26/18 05/26/18 05/26/18 01:13 02:24 02:24 WBC 18.7 H RBC Hgb 11.6 L Hct MCHC RDW Plt Count Lymph % (Auto) [place] % (Auto) Lymph # [place] # Seg Neutrophils % Seg Neuts % (Manual) Lymphocytes % (Manual) Seg Neutrophils # Seg Neutrophils # Man Lymphocytes # (Manual) PT INR APTT POC ABG pH POC ABG pCO2 POC ABG pO2 Sodium 147 H Potassium 6.2 H* D Chloride 111.9 H Carbon Dioxide 19 L BUN 80 H Creatinine 5.1 H D Glucose 112 H POC Glucose Lactic Acid 5.20 H* Calcium 6.7 L D Phosphorus Magnesium Iron TIBC AST ALT Alkaline Phosphatase Lactate Dehydrogenase Total Creatine Kinase C-Reactive Protein Total Protein Albumin CA 19-9 Antigen Folate PTH Intact Urine WBC (Auto) Urine Creatinine Urine Chloride Urine Total Protein Fluid Glucose Fluid Total Protein Vancomycin Trough Miscellaneous Test Crossmatch 05/26/18 05/26/18 05/26/18 04:20 04:20 05:39 WBC RBC Hgb Hct MCHC RDW Plt Count Lymph % (Auto) [place] % (Auto) Lymph # [place] # Seg Neutrophils % Seg Neuts % (Manual) Lymphocytes % (Manual) Seg Neutrophils # Seg Neutrophils # Man Lymphocytes # (Manual) PT INR APTT POC ABG pH POC ABG pCO2 POC ABG pO2 Sodium 150 H Potassium Chloride 110.0 H Carbon Dioxide 19 L BUN 66 H Creatinine Glucose 166 H POC Glucose 187 H Lactic Acid 5.10 H* Calcium 6.9 L Phosphorus 6.70 H D Magnesium Iron TIBC AST ALT Alkaline Phosphatase Lactate Dehydrogenase Total Creatine Kinase C-Reactive Protein Total Protein Albumin CA 19-9 Antigen Folate PTH Intact Urine WBC (Auto) Urine Creatinine Urine Chloride Urine Total Protein Fluid Glucose Fluid Total Protein Vancomycin Trough Miscellaneous Test Crossmatch 05/26/18 05/26/1805/26/18 06:02 07:29 11:00 WBC RBC Hgb Hct MCHC RDW Plt Count Lymph % (Auto) [place] % (Auto) Lymph # [place] # Seg Neutrophils % Seg Neuts % (Manual) Lymphocytes % (Manual) Seg Neutrophils # Seg Neutrophils # Man Lymphocytes # (Manual) PT INR APTT POC ABG pH POC ABG pCO2 28.8 L POC ABG pO2 Sodium Potassium Chloride Carbon Dioxide BUN Creatinine Glucose POC Glucose Lactic Acid 4.80 H* 3.80 H* Calcium Phosphorus Magnesium Iron TIBC AST ALT Alkaline Phosphatase Lactate Dehydrogenase Total Creatine Kinase C-Reactive Protein Total Protein Albumin CA 19-9 Antigen Folate PTH Intact Urine WBC (Auto) Urine Creatinine Urine Chloride Urine Total Protein Fluid Glucose Fluid Total Protein Vancomycin Trough Miscellaneous Test Crossmatch 05/26/18 05/26/18 05/26/18 11:01 12:28 18:00 WBC RBC Hgb Hct MCHC RDW Plt Count Lymph % (Auto) [place] % (Auto) Lymph # [place] # Seg Neutrophils % Seg Neuts % (Manual) Lymphocytes % (Manual) Seg Neutrophils # Seg Neutrophils # Man Lymphocytes # (Manual) PT INR APTT POC ABG pH POC ABG pCO2 POC ABG pO2 Sodium 150 H 151 H Potassium 5.3 H D 6.1 H* Chloride 110.3 H 117.0 H Carbon Dioxide 21 L 20 L BUN 75 H 77 H Creatinine 4.3 H D 4.6 H Glucose 161 H POC Glucose 114 H Lactic Acid Calcium 7.5 L 6.7 L Phosphorus Magnesium Iron TIBC AST 1041 H ALT 406 H Alkaline Phosphatase 281 H Lactate Dehydrogenase Total Creatine Kinase C-Reactive Protein Total Protein 4.4 L Albumin 1.3 L CA 19-9 Antigen Folate PTH Intact Urine WBC (Auto) Urine Creatinine Urine Chloride Urine Total Protein Fluid Glucose Fluid Total Protein Vancomycin Trough Miscellaneous Test Crossmatch 05/26/18 05/26/18 05/27/18 18:02 19:17 01:01 WBC 21.7 H RBC 2.70 L Hgb 7.8 L D Hct 24.6 L D MCHC RDW 15.3 H Plt Count Lymph % (Auto) [place] % (Auto) Lymph # [place] # Seg Neutrophils % Seg Neuts % (Manual) 94.0 H Lymphocytes % (Manual) 3.0 L Seg Neutrophils # Seg Neutrophils # Man 20.4 H Lymphocytes # (Manual) 0.7 L PT INR APTT POC ABG pH 7.159 L 7.205 L POC ABG pCO2 54.5 H 53.0 H POC ABG pO2 252 H Sodium Potassium Chloride Carbon Dioxide BUN Creatinine Glucose POC Glucose Lactic Acid Calcium Phosphorus Magnesium Iron TIBC AST ALT Alkaline Phosphatase Lactate Dehydrogenase Total Creatine Kinase C-Reactive Protein Total Protein Albumin CA 19-9 Antigen Folate PTH Intact Urine WBC (Auto) Urine Creatinine Urine Chloride Urine Total Protein Fluid Glucose Fluid Total Protein Vancomycin Trough Miscellaneous Test Crossmatch 05/27/18 05/27/18 05/27/18 05:15 05:15 06:11 WBC 24.9 H RBC 2.86 L Hgb 8.1 L Hct 25.9 L MCHC RDW 15.5 H Plt Count Lymph % (Auto) [place] % (Auto) Lymph # [place] # Seg Neutrophils % Seg Neuts % (Manual) Lymphocytes % (Manual) Seg Neutrophils # Seg Neutrophils # Man Lymphocytes # (Manual) PT INR APTT POC ABG pH 7.265 L POC ABG pCO2 46.2 H POC ABG pO2 111 H Sodium 149 H Potassium 6.9 H* Chloride 113.5 H Carbon Dioxide BUN 89 H Creatinine 5.2 H Glucose 118 H POC Glucose Lactic Acid Calcium 7.0 L Phosphorus 9.70 H D Magnesium Iron TIBC AST 876 H ALT 408 H Alkaline Phosphatase Lactate Dehydrogenase Total Creatine Kinase C-Reactive Protein Total Protein 5.2 L Albumin 1.5 L CA 19-9 Antigen Folate PTH Intact Urine WBC (Auto) Urine Creatinine Urine Chloride Urine Total Protein Fluid Glucose Fluid Total Protein Vancomycin Trough Miscellaneous Test Crossmatch 05/27/18 05/27/18 05/27/18 08:48 10:22 10:22 WBC RBC Hgb Hct MCHC RDW Plt Count Lymph % (Auto) [place] % (Auto) Lymph # [place] # Seg Neutrophils % Seg Neuts % (Manual) Lymphocytes % (Manual) Seg Neutrophils # Seg Neutrophils # Man Lymphocytes # (Manual) PT INR APTT POC ABG pH POC ABG pCO2 POC ABG pO2 Sodium 146 H Potassium 6.1 H* Chloride 108.2 H Carbon Dioxide 21 L BUN 88 H Creatinine 5.6 H Glucose 163 H POC Glucose 164 H Lactic Acid Calcium 6.7 L Phosphorus Magnesium Iron TIBC AST ALT Alkaline Phosphatase Lactate Dehydrogenase Total Creatine Kinase C-Reactive Protein 40.70 H Total Protein Albumin CA 19-9 Antigen Folate PTH Intact Urine WBC (Auto) Urine Creatinine Urine Chloride Urine Total Protein Fluid Glucose Fluid Total Protein Vancomycin Trough Miscellaneous Test Crossmatch 05/27/18 05/27/18 05/27/18 13:02 17:39 23:27 WBC RBC Hgb Hct MCHC RDW Plt Count Lymph % (Auto) [place] % (Auto) Lymph # [place] # Seg Neutrophils % Seg Neuts % (Manual) Lymphocytes % (Manual) Seg Neutrophils # Seg Neutrophils # Man Lymphocytes # (Manual) PT INR APTT POC ABG pH POC ABG pCO2 POC ABG pO2 Sodium Potassium Chloride Carbon Dioxide BUN Creatinine Glucose POC Glucose 59 L 132 H Lactic Acid Calcium Phosphorus Magnesium Iron TIBC AST ALT Alkaline Phosphatase Lactate Dehydrogenase Total Creatine Kinase C-Reactive Protein Total Protein Albumin CA 19-9 Antigen Folate PTH Intact Urine WBC (Auto) Urine Creatinine Urine Chloride Urine Total Protein Fluid Glucose Fluid Total Protein Vancomycin Trough Miscellaneous Test Flexitest 1 H Crossmatch 05/27/18 05/28/18 05/28/18 Unknown 04:32 05:00 WBC RBC Hgb Hct MCHC RDW Plt Count Lymph % (Auto) [place] % (Auto) Lymph # [place] # Seg Neutrophils % Seg Neuts % (Manual) Lymphocytes % (Manual) Seg Neutrophils # Seg Neutrophils # Man Lymphocytes # (Manual) PT INR APTT POC ABG pH POC ABG pCO2 POC ABG pO2 134 H Sodium Potassium Chloride Carbon Dioxide BUN 69 H Creatinine 4.4 H Glucose 118 H POC Glucose Lactic Acid Calcium 8.0 L D Phosphorus 6.80 H D Magnesium Iron TIBC AST ALT Alkaline Phosphatase Lactate Dehydrogenase Total Creatine Kinase C-Reactive Protein Total Protein Albumin CA 19-9 Antigen Folate PTH Intact Urine WBC (Auto) 120.0 H Urine Creatinine Urine Chloride Urine Total Protein Fluid Glucose Fluid Total Protein Vancomycin Trough Miscellaneous Test Crossmatch 05/28/18 05/28/18 05/28/18 05:00 05:27 13:04 WBC 26.5 H RBC 2.69 L Hgb 7.7 L Hct 23.6 L MCHC RDW Plt Count Lymph % (Auto) [place] % (Auto) Lymph # [place] # Seg Neutrophils % Seg Neuts % (Manual) 96.0 H Lymphocytes % (Manual) 0 L Seg Neutrophils # Seg Neutrophils # Man 25.4 H Lymphocytes # (Manual) 0.0 L PT INR APTT POC ABG pH POC ABG pCO2 POC ABG pO2 Sodium Potassium Chloride Carbon Dioxide BUN Creatinine Glucose POC Glucose 128 H 155 H Lactic Acid Calcium Phosphorus Magnesium Iron TIBC AST ALT Alkaline Phosphatase Lactate Dehydrogenase Total Creatine Kinase C-Reactive Protein Total Protein Albumin CA 19-9 Antigen Folate PTH Intact Urine WBC (Auto) Urine Creatinine Urine Chloride Urine Total Protein Fluid Glucose Fluid Total Protein Vancomycin Trough Miscellaneous Test Crossmatch 05/28/18 05/29/18 05/29/18 17:56 03:35 04:00 WBC RBC Hgb Hct MCHC RDW Plt Count Lymph % (Auto) [place] % (Auto) Lymph # [place] # Seg Neutrophils % Seg Neuts % (Manual) Lymphocytes % (Manual) Seg Neutrophils # Seg Neutrophils # Man Lymphocytes # (Manual) PT INR APTT POC ABG pH 7.471 H POC ABG pCO2 POC ABG pO2 78 L Sodium Potassium Chloride Carbon Dioxide BUN 50 H Creatinine 3.9 H Glucose POC Glucose 110 H Lactic Acid Calcium 7.7 L Phosphorus Magnesium 1.50 L Iron TIBC AST 218 H ALT 204 H Alkaline Phosphatase Lactate Dehydrogenase Total Creatine Kinase C-Reactive Protein Total Protein 5.4 L Albumin 1.6 L CA 19-9 Antigen Folate PTH Intact Urine WBC (Auto) Urine Creatinine Urine Chloride Urine Total Protein Fluid Glucose Fluid Total Protein Vancomycin Trough Miscellaneous Test Crossmatch 05/29/18 05/29/18 05/30/18 11:51 23:56 04:54 WBC RBC Hgb Hct MCHC RDW Plt Count Lymph % (Auto) [place] % (Auto) Lymph # [place] # Seg Neutrophils % Seg Neuts % (Manual) Lymphocytes % (Manual) Seg Neutrophils # Seg Neutrophils # Man Lymphocytes # (Manual) PT INR APTT POC ABG pH POC ABG pCO2 POC ABG pO2 Sodium Potassium Chloride Carbon Dioxide BUN Creatinine Glucose POC Glucose 131 H 119 H 115 H Lactic Acid Calcium Phosphorus Magnesium Iron TIBC AST ALT Alkaline Phosphatase Lactate Dehydrogenase Total Creatine Kinase C-Reactive Protein Total Protein Albumin CA 19-9 Antigen Folate PTH Intact Urine WBC (Auto) Urine Creatinine Urine Chloride Urine Total Protein Fluid Glucose Fluid Total Protein Vancomycin Trough Miscellaneous Test Crossmatch 05/30/18 05/30/18 05/30/18 05:07 05:15 05:15 WBC 16.2 H RBC 2.53 L Hgb 7.4 L Hct 21.9 L MCHC RDW Plt Count Lymph % (Auto) [place] % (Auto) Lymph # [place] # Seg Neutrophils % Seg Neuts % (Manual) Lymphocytes % (Manual) Seg Neutrophils # Seg Neutrophils # Man Lymphocytes # (Manual) PT INR APTT POC ABG pH POC ABG pCO2 34.5 L POC ABG pO2 133 H Sodium 135 L Potassium Chloride 97.5 L Carbon Dioxide BUN 69 H Creatinine 5.4 H Glucose 105 H POC Glucose Lactic Acid Calcium 7.5 L Phosphorus 5.30 H D Magnesium Iron TIBC AST ALT Alkaline Phosphatase Lactate Dehydrogenase Total Creatine Kinase C-Reactive Protein Total Protein Albumin CA 19-9 Antigen Folate PTH Intact Urine WBC (Auto) Urine Creatinine Urine Chloride Urine Total Protein Fluid Glucose Fluid Total Protein Vancomycin Trough Miscellaneous Test Crossmatch 05/30/18 05/30/18 05/31/18 12:13 17:10 04:50 WBC 18.7 H RBC 2.86 L Hgb 8.2 L Hct 24.8 L MCHC RDW Plt Count Lymph % (Auto) [place] % (Auto) Lymph # [place] # Seg Neutrophils % Seg Neuts % (Manual) 91.0 H Lymphocytes % (Manual) 2.0 L Seg Neutrophils # Seg Neutrophils # Man 17.0 H Lymphocytes # (Manual) 0.4 L PT INR APTT POC ABG pH POC ABG pCO2 POC ABG pO2 Sodium Potassium Chloride Carbon Dioxide BUN Creatinine Glucose POC Glucose 132 H 122 H Lactic Acid Calcium Phosphorus Magnesium Iron TIBC AST ALT Alkaline Phosphatase Lactate Dehydrogenase Total Creatine Kinase C-Reactive Protein Total Protein Albumin CA 19-9 Antigen Folate PTH Intact Urine WBC (Auto) Urine Creatinine Urine Chloride Urine Total Protein Fluid Glucose Fluid Total Protein Vancomycin Trough Miscellaneous Test Crossmatch 05/31/18 05/31/18 05/31/18 04:50 05:45 11:37 WBC RBC Hgb Hct MCHC RDW Plt Count Lymph % (Auto) [place] % (Auto) Lymph # [place] # Seg Neutrophils % Seg Neuts % (Manual) Lymphocytes % (Manual) Seg Neutrophils # Seg Neutrophils # Man Lymphocytes # (Manual) PT INR APTT POC ABG pH POC ABG pCO2 POC ABG pO2 Sodium 132 L Potassium Chloride 92.4 L Carbon Dioxide BUN 77 H Creatinine 5.9 H Glucose POC Glucose 111 H 136 H Lactic Acid Calcium 7.3 L Phosphorus 6.40 H D Magnesium Iron TIBC AST ALT Alkaline Phosphatase Lactate Dehydrogenase Total Creatine Kinase C-Reactive Protein Total Protein Albumin CA 19-9 Antigen Folate PTH Intact Urine WBC (Auto) Urine Creatinine Urine Chloride Urine Total Protein Fluid Glucose Fluid Total Protein Vancomycin Trough Miscellaneous Test Crossmatch 05/31/18 06/01/18 06/01/18 17:52 00:09 04:00 WBC RBC Hgb Hct MCHC RDW Plt Count Lymph % (Auto) [place] % (Auto) Lymph # [place] # Seg Neutrophils % Seg Neuts % (Manual) Lymphocytes % (Manual) Seg Neutrophils # Seg Neutrophils # Man Lymphocytes # (Manual) PT INR APTT POC ABG pH POC ABG pCO2 POC ABG pO2 Sodium Potassium Chloride 97.5 L Carbon Dioxide BUN 49 H Creatinine 4.2 H Glucose 104 H POC Glucose 115 H 114 H Lactic Acid Calcium 7.3 L Phosphorus 4.70 H D Magnesium Iron TIBC AST ALT Alkaline Phosphatase Lactate Dehydrogenase Total Creatine Kinase C-Reactive Protein Total Protein Albumin CA 19-9 Antigen Folate PTH Intact Urine WBC (Auto) Urine Creatinine Urine Chloride Urine Total Protein Fluid Glucose Fluid Total Protein Vancomycin Trough Miscellaneous Test Crossmatch 06/01/18 06/01/18 06/02/18 11:10 17:56 00:15 WBC RBC Hgb Hct MCHC RDW Plt Count Lymph % (Auto) [place] % (Auto) Lymph # [place] # Seg Neutrophils % Seg Neuts % (Manual) Lymphocytes % (Manual) Seg Neutrophils # Seg Neutrophils # Man Lymphocytes # (Manual) PT INR APTT POC ABG pH POC ABG pCO2 POC ABG pO2 Sodium Potassium Chloride Carbon Dioxide BUN Creatinine Glucose POC Glucose 123 H 126 H 135 H Lactic Acid Calcium Phosphorus Magnesium Iron TIBC AST ALT Alkaline Phosphatase Lactate Dehydrogenase Total Creatine Kinase C-Reactive Protein Total Protein Albumin CA 19-9 Antigen Folate PTH Intact Urine WBC (Auto) Urine Creatinine Urine Chloride Urine Total Protein Fluid Glucose Fluid Total Protein Vancomycin Trough Miscellaneous Test Crossmatch 06/02/18 06/02/18 06/02/18 05:23 12:42 13:05 WBC RBC Hgb Hct MCHC RDW Plt Count Lymph % (Auto) [place] % (Auto) Lymph # [place] # Seg Neutrophils % Seg Neuts % (Manual) Lymphocytes % (Manual) Seg Neutrophils # Seg Neutrophils # Man Lymphocytes # (Manual) PT 17.1 H INR 1.34 H APTT POC ABG pH POC ABG pCO2 POC ABG pO2 Sodium Potassium Chloride Carbon Dioxide BUN Creatinine Glucose POC Glucose 135 H 142 H Lactic Acid Calcium Phosphorus Magnesium Iron TIBC AST ALT Alkaline Phosphatase Lactate Dehydrogenase Total Creatine Kinase C-Reactive Protein Total Protein Albumin CA 19-9 Antigen Folate PTH Intact Urine WBC (Auto) Urine Creatinine Urine Chloride Urine Total Protein Fluid Glucose Fluid Total Protein Vancomycin Trough Miscellaneous Test Crossmatch 06/02/18 06/02/18 06/03/18 Unknown Unknown 00:54 WBC 20.8 H RBC 2.67 L Hgb 7.7 L Hct 23.0 L MCHC RDW Plt Count 500 H Lymph % (Auto) [place] % (Auto) Lymph # [place] # Seg Neutrophils % Seg Neuts % (Manual) Lymphocytes % (Manual) Seg Neutrophils # Seg Neutrophils # Man Lymphocytes # (Manual) PT INR APTT POC ABG pH POC ABG pCO2 POC ABG pO2 Sodium 136 L Potassium 3.5 L Chloride 96.9 L Carbon Dioxide BUN 62 H Creatinine 4.9 H Glucose 133 H POC Glucose 125 H Lactic Acid Calcium 7.2 L Phosphorus 5.00 H Magnesium Iron TIBC AST 46 H ALT 66 H Alkaline Phosphatase Lactate Dehydrogenase Total Creatine Kinase C-Reactive Protein Total Protein 5.7 L Albumin 1.5 L CA 19-9 Antigen Folate PTH Intact Urine WBC (Auto) Urine Creatinine Urine Chloride Urine Total Protein Fluid Glucose Fluid Total Protein Vancomycin Trough Miscellaneous Test Crossmatch 06/03/18 06/03/18 06/03/18 03:31 09:18 09:18 WBC RBC Hgb Hct MCHC RDW Plt Count Lymph % (Auto) [place] % (Auto) Lymph # [place] # Seg Neutrophils % Seg Neuts % (Manual) Lymphocytes % (Manual) Seg Neutrophils # Seg Neutrophils # Man Lymphocytes # (Manual) PT 17.1 H INR 1.34 H APTT POC ABG pH POC ABG pCO2 POC ABG pO2 Sodium 136 L Potassium Chloride Carbon Dioxide BUN 41 H Creatinine 3.4 H Glucose 129 H POC Glucose Lactic Acid Calcium 7.4 L Phosphorus Magnesium Iron TIBC AST ALT Alkaline Phosphatase Lactate Dehydrogenase Total Creatine Kinase C-Reactive Protein 11.10 H Total Protein Albumin CA 19-9 Antigen Folate PTH Intact Urine WBC (Auto) Urine Creatinine Urine Chloride Urine Total Protein Fluid Glucose Fluid Total Protein Vancomycin Trough Miscellaneous Test Crossmatch 06/03/18 06/03/18 06/03/18 16:07 21:18 Unknown WBC RBC Hgb Hct MCHC RDW Plt Count Lymph % (Auto) [place] % (Auto) Lymph # [place] # Seg Neutrophils % Seg Neuts % (Manual) Lymphocytes % (Manual) Seg Neutrophils # Seg Neutrophils # Man Lymphocytes # (Manual) PT INR APTT POC ABG pH POC ABG pCO2 POC ABG pO2 Sodium Potassium Chloride Carbon Dioxide BUN Creatinine Glucose POC Glucose 144 H 128 H Lactic Acid Calcium Phosphorus Magnesium Iron TIBC AST ALT Alkaline Phosphatase Lactate Dehydrogenase Total Creatine Kinase C-Reactive Protein Total Protein Albumin CA 19-9 Antigen Folate PTH Intact Urine WBC (Auto) Urine Creatinine Urine Chloride Urine Total Protein Fluid Glucose 10 L Fluid Total Protein 3.7 L Vancomycin Trough Miscellaneous Test Crossmatch 06/04/18 06/04/18 06/04/18 04:31 06:14 11:38 WBC RBC Hgb Hct MCHC RDW Plt Count Lymph % (Auto) [place] % (Auto) Lymph # [place] # Seg Neutrophils % Seg Neuts % (Manual) Lymphocytes % (Manual) Seg Neutrophils # Seg Neutrophils # Man Lymphocytes # (Manual) PT INR APTT POC ABG pH POC ABG pCO2 POC ABG pO2 Sodium Potassium Chloride Carbon Dioxide BUN 55 H Creatinine 3.7 H Glucose 151 H POC Glucose 145 H 129 H Lactic Acid Calcium 7.8 L Phosphorus 4.60 H Magnesium Iron TIBC AST ALT Alkaline Phosphatase Lactate Dehydrogenase Total Creatine Kinase C-Reactive Protein Total Protein Albumin CA 19-9 Antigen Folate PTH Intact Urine WBC (Auto) Urine Creatinine Urine Chloride Urine Total Protein Fluid Glucose Fluid Total Protein Vancomycin Trough Miscellaneous Test Crossmatch 06/04/18 06/04/18 06/04/18 17:09 20:00 21:29 WBC RBC Hgb 8.8 L Hct 27.3 L MCHC RDW Plt Count Lymph % (Auto) [place] % (Auto) Lymph # [place] # Seg Neutrophils % Seg Neuts % (Manual) Lymphocytes % (Manual) Seg Neutrophils # Seg Neutrophils # Man Lymphocytes # (Manual) PT INR APTT POC ABG pH POC ABG pCO2 POC ABG pO2 Sodium Potassium Chloride Carbon Dioxide BUN Creatinine Glucose POC Glucose 142 H 130 H Lactic Acid Calcium Phosphorus Magnesium Iron TIBC AST ALT Alkaline Phosphatase Lactate Dehydrogenase Total Creatine Kinase C-Reactive Protein Total Protein Albumin CA 19-9 Antigen Folate PTH Intact Urine WBC (Auto) Urine Creatinine Urine Chloride Urine Total Protein Fluid Glucose Fluid Total Protein Vancomycin Trough Miscellaneous Test Crossmatch 06/05/18 06/05/18 06/05/18 06:30 07:00 07:00 WBC 19.3 H RBC 2.94 L Hgb 8.3 L Hct 25.6 L MCHC RDW 15.7 H Plt Count 568 H Lymph % (Auto) 4.7 L [place] % (Auto) Lymph # 0.9 L [place] # 1.1 H Seg Neutrophils % 88.9 H Seg Neuts % (Manual) Lymphocytes % (Manual) Seg Neutrophils # 17.2 H Seg Neutrophils # Man Lymphocytes # (Manual) PT INR APTT POC ABG pH POC ABG pCO2 POC ABG pO2 Sodium Potassium 3.4 L D Chloride Carbon Dioxide BUN 67 H Creatinine 3.6 H Glucose 145 H POC Glucose 153 H Lactic Acid Calcium 7.9 L Phosphorus 4.60 H Magnesium Iron TIBC AST ALT Alkaline Phosphatase Lactate Dehydrogenase Total Creatine Kinase C-Reactive Protein Total Protein Albumin CA 19-9 Antigen Folate PTH Intact Urine WBC (Auto) Urine Creatinine Urine Chloride Urine Total Protein Fluid Glucose Fluid Total Protein Vancomycin Trough Miscellaneous Test Crossmatch 06/05/18 06/05/18 06/06/18 12:10 16:01 06:39 WBC RBC Hgb Hct MCHC RDW Plt Count Lymph % (Auto) [place] % (Auto) Lymph # [place] # Seg Neutrophils % Seg Neuts % (Manual) Lymphocytes % (Manual) Seg Neutrophils # Seg Neutrophils # Man Lymphocytes # (Manual) PT INR APTT POC ABG pH POC ABG pCO2 POC ABG pO2 Sodium Potassium Chloride Carbon Dioxide BUN Creatinine Glucose POC Glucose 150 H 129 H 131 H Lactic Acid Calcium Phosphorus Magnesium Iron TIBC AST ALT Alkaline Phosphatase Lactate Dehydrogenase Total Creatine Kinase C-Reactive Protein Total Protein Albumin CA 19-9 Antigen Folate PTH Intact Urine WBC (Auto) Urine Creatinine Urine Chloride Urine Total Protein Fluid Glucose Fluid Total Protein Vancomycin Trough Miscellaneous Test Crossmatch 06/06/18 06/06/18 06/06/18 07:14 07:14 07:14 WBC 16.5 H RBC 2.84 L Hgb 8.1 L Hct 25.2 L MCHC RDW 16.4 H Plt Count 526 H Lymph % (Auto) 6.5 L [place] % (Auto) Lymph # 1.1 L [place] # 1.2 H Seg Neutrophils % 85.3 H Seg Neuts % (Manual) Lymphocytes % (Manual) Seg Neutrophils # 14.1 H Seg Neutrophils # Man Lymphocytes # (Manual) PT INR APTT POC ABG pH POC ABG pCO2 POC ABG pO2 Sodium Potassium Chloride 109.1 H Carbon Dioxide 21 L BUN 76 H Creatinine 3.5 H Glucose 111 H POC Glucose Lactic Acid Calcium 8.1 L Phosphorus Magnesium Iron TIBC AST ALT Alkaline Phosphatase Lactate Dehydrogenase Total Creatine Kinase C-Reactive Protein 4.70 H Total Protein Albumin CA 19-9 Antigen Folate PTH Intact Urine WBC (Auto) Urine Creatinine Urine Chloride Urine Total Protein Fluid Glucose Fluid Total Protein Vancomycin Trough Miscellaneous Test Crossmatch 06/06/18 06/06/18 06/06/18 11:15 18:00 23:58 WBC RBC Hgb Hct MCHC RDW Plt Count Lymph % (Auto) [place] % (Auto) Lymph # [place] # Seg Neutrophils % Seg Neuts % (Manual) Lymphocytes % (Manual) Seg Neutrophils # Seg Neutrophils # Man Lymphocytes # (Manual) PT INR APTT POC ABG pH POC ABG pCO2 POC ABG pO2 Sodium Potassium Chloride Carbon Dioxide BUN Creatinine Glucose POC Glucose 127 H 130 H 114 H Lactic Acid Calcium Phosphorus Magnesium Iron TIBC AST ALT Alkaline Phosphatase Lactate Dehydrogenase Total Creatine Kinase C-Reactive Protein Total Protein Albumin CA 19-9 Antigen Folate PTH Intact Urine WBC (Auto) Urine Creatinine Urine Chloride Urine Total Protein Fluid Glucose Fluid Total Protein Vancomycin Trough Miscellaneous Test Crossmatch 06/07/18 06/07/18 06/07/18 05:45 05:45 05:54 WBC 15.5 H RBC 2.60 L Hgb 7.4 L Hct 23.1 L MCHC RDW 16.5 H Plt Count 506 H Lymph % (Auto) 5.3 L [place] % (Auto) Lymph # 0.8 L [place] # 1.0 H Seg Neutrophils % 86.6 H Seg Neuts % (Manual) Lymphocytes % (Manual) Seg Neutrophils # 13.4 H Seg Neutrophils # Man Lymphocytes # (Manual) PT INR APTT POC ABG pH POC ABG pCO2 POC ABG pO2 Sodium Potassium Chloride 108.4 H Carbon Dioxide BUN 84 H Creatinine 3.5 H Glucose 119 H POC Glucose 114 H Lactic Acid Calcium 8.1 L Phosphorus 5.10 H Magnesium Iron TIBC AST ALT Alkaline Phosphatase Lactate Dehydrogenase Total Creatine Kinase C-Reactive Protein Total Protein Albumin CA 19-9 Antigen Folate PTH Intact Urine WBC (Auto) Urine Creatinine Urine Chloride Urine Total Protein Fluid Glucose Fluid Total Protein Vancomycin Trough Miscellaneous Test Crossmatch 06/07/18 06/08/18 06/08/18 12:15 05:05 05:24 WBC RBC Hgb Hct MCHC RDW Plt Count Lymph % (Auto) [place] % (Auto) Lymph # [place] # Seg Neutrophils % Seg Neuts % (Manual) Lymphocytes % (Manual) Seg Neutrophils # Seg Neutrophils # Man Lymphocytes # (Manual) PT INR APTT POC ABG pH POC ABG pCO2 POC ABG pO2 Sodium 148 H Potassium Chloride 112.4 H Carbon Dioxide BUN 89 H Creatinine 3.4 H Glucose 120 H POC Glucose 148 H 115 H Lactic Acid Calcium 7.9 L Phosphorus Magnesium Iron TIBC AST ALT Alkaline Phosphatase Lactate Dehydrogenase Total Creatine Kinase C-Reactive Protein Total Protein Albumin CA 19-9 Antigen Folate PTH Intact Urine WBC (Auto) Urine Creatinine Urine Chloride Urine Total Protein Fluid Glucose Fluid Total Protein Vancomycin Trough Miscellaneous Test Crossmatch 06/08/18 06/08/18 06/08/18 21:36 21:43 21:43 WBC RBC 2.98 L Hgb 8.8 L Hct 26.6 L MCHC RDW 16.7 H Plt Count 463 H Lymph % (Auto) 7.9 L [place] % (Auto) Lymph # 0.8 L [place] # Seg Neutrophils % 84.8 H Seg Neuts % (Manual) Lymphocytes % (Manual) Seg Neutrophils # 8.6 H Seg Neutrophils # Man Lymphocytes # (Manual) PT INR APTT POC ABG pH POC ABG pCO2 POC ABG pO2 Sodium Potassium Chloride Carbon Dioxide BUN Creatinine Glucose POC Glucose Lactic Acid Calcium Phosphorus Magnesium Iron TIBC AST ALT Alkaline Phosphatase Lactate Dehydrogenase 297 H Total Creatine Kinase C-Reactive Protein Total Protein Albumin CA 19-9 Antigen 57 H Folate PTH Intact Urine WBC (Auto) Urine Creatinine Urine Chloride Urine Total Protein Fluid Glucose Fluid Total Protein Vancomycin Trough Miscellaneous Test Crossmatch 06/09/18 06/09/18 06/09/18 00:05 05:34 05:50 WBC RBC Hgb Hct MCHC RDW Plt Count Lymph % (Auto) [place] % (Auto) Lymph # [place] # Seg Neutrophils % Seg Neuts % (Manual) Lymphocytes % (Manual) Seg Neutrophils # Seg Neutrophils # Man Lymphocytes # (Manual) PT INR APTT POC ABG pH POC ABG pCO2 POC ABG pO2 Sodium 153 H Potassium Chloride 117.3 H Carbon Dioxide BUN 84 H Creatinine 3.2 H Glucose 117 H POC Glucose 140 H 146 H Lactic Acid Calcium 7.9 L Phosphorus Magnesium Iron TIBC AST ALT Alkaline Phosphatase Lactate Dehydrogenase Total Creatine Kinase C-Reactive Protein Total Protein Albumin CA 19-9 Antigen Folate PTH Intact Urine WBC (Auto) Urine Creatinine Urine Chloride Urine Total Protein Fluid Glucose Fluid Total Protein Vancomycin Trough Miscellaneous Test Crossmatch 06/09/18 06/09/18 06/09/18 05:50 07:37 10:34 WBC RBC 2.32 L Hgb 6.8 L Hct 20.7 L MCHC RDW 16.7 H Plt Count Lymph % (Auto) [place] % (Auto) Lymph # [place] # Seg Neutrophils % Seg Neuts % (Manual) Lymphocytes % (Manual) Seg Neutrophils # Seg Neutrophils # Man Lymphocytes # (Manual) PT INR APTT POC ABG pH POC ABG pCO2 POC ABG pO2 Sodium 149 H Potassium Chloride 114.6 H Carbon Dioxide BUN 84 H Creatinine 3.1 H Glucose 137 H POC Glucose Lactic Acid Calcium 7.7 L Phosphorus Magnesium Iron TIBC AST ALT Alkaline Phosphatase Lactate Dehydrogenase Total Creatine Kinase C-Reactive Protein Total Protein Albumin CA 19-9 Antigen Folate PTH Intact Urine WBC (Auto) Urine Creatinine Urine Chloride Urine Total Protein Fluid Glucose Fluid Total Protein Vancomycin Trough Miscellaneous Test Flexitest 1 H Crossmatch 06/09/18 06/09/18 06/09/18 10:41 11:56 13:24 WBC RBC 2.43 L Hgb 7.2 L Hct 21.6 L MCHC RDW 16.8 H Plt Count Lymph % (Auto) [place] % (Auto) Lymph # [place] # Seg Neutrophils % Seg Neuts % (Manual) Lymphocytes % (Manual) Seg Neutrophils # Seg Neutrophils # Man Lymphocytes # (Manual) PT INR APTT POC ABG pH POC ABG pCO2 POC ABG pO2 Sodium Potassium Chloride Carbon Dioxide BUN Creatinine Glucose POC Glucose 141 H Lactic Acid Calcium Phosphorus Magnesium Iron TIBC AST ALT Alkaline Phosphatase Lactate Dehydrogenase Total Creatine Kinase C-Reactive Protein Total Protein Albumin CA 19-9 Antigen Folate PTH Intact Urine WBC (Auto) Urine Creatinine Urine Chloride Urine Total Protein Fluid Glucose Fluid Total Protein Vancomycin Trough Miscellaneous Test Crossmatch See Detail 06/09/18 06/09/18 06/10/18 18:18 23:13 05:26 WBC RBC Hgb Hct MCHC RDW Plt Count Lymph % (Auto) [place] % (Auto) Lymph # [place] # Seg Neutrophils % Seg Neuts % (Manual) Lymphocytes % (Manual) Seg Neutrophils # Seg Neutrophils # Man Lymphocytes # (Manual) PT INR APTT POC ABG pH POC ABG pCO2 POC ABG pO2 Sodium 148 H Potassium Chloride 114.7 H Carbon Dioxide 21 L BUN 79 H Creatinine 3.2 H Glucose 121 H POC Glucose 156 H 163 H Lactic Acid Calcium 7.8 L Phosphorus Magnesium 1.60 L Iron TIBC AST ALT Alkaline Phosphatase Lactate Dehydrogenase Total Creatine Kinase C-Reactive Protein Total Protein Albumin CA 19-9 Antigen Folate PTH Intact Urine WBC (Auto) Urine Creatinine Urine Chloride Urine Total Protein Fluid Glucose Fluid Total Protein Vancomycin Trough Miscellaneous Test Crossmatch 06/10/18 06/10/18 06/10/18 05:26 05:31 17:15 WBC 11.1 H RBC 3.07 L Hgb 9.1 L Hct 27.6 L D MCHC RDW 17.4 H Plt Count Lymph % (Auto) [place] % (Auto) Lymph # [place] # Seg Neutrophils % Seg Neuts % (Manual) Lymphocytes % (Manual) Seg Neutrophils # Seg Neutrophils # Man Lymphocytes # (Manual) PT INR APTT POC ABG pH POC ABG pCO2 POC ABG pO2 Sodium Potassium Chloride Carbon Dioxide BUN Creatinine Glucose POC Glucose 128 H Lactic Acid Calcium Phosphorus Magnesium Iron TIBC AST ALT Alkaline Phosphatase Lactate Dehydrogenase Total Creatine Kinase C-Reactive Protein 3.60 H Total Protein Albumin CA 19-9 Antigen Folate PTH Intact Urine WBC (Auto) Urine Creatinine Urine Chloride Urine Total Protein Fluid Glucose Fluid Total Protein Vancomycin Trough Miscellaneous Test Crossmatch 06/11/18 06/11/18 06/11/18 01:13 05:41 05:41 WBC 14.6 H RBC 3.40 L Hgb 9.8 L Hct 30.7 L MCHC RDW 18.1 H Plt Count Lymph % (Auto) [place] % (Auto) Lymph # [place] # Seg Neutrophils % Seg Neuts % (Manual) Lymphocytes % (Manual) Seg Neutrophils # Seg Neutrophils # Man Lymphocytes # (Manual) PT INR APTT POC ABG pH POC ABG pCO2 POC ABG pO2 Sodium Potassium Chloride 110.8 H Carbon Dioxide 18 L BUN 77 H Creatinine 3.0 H Glucose 116 H POC Glucose 126 H Lactic Acid Calcium 7.9 L Phosphorus Magnesium Iron TIBC AST ALT Alkaline Phosphatase Lactate Dehydrogenase Total Creatine Kinase C-Reactive Protein Total Protein Albumin CA 19-9 Antigen Folate PTH Intact Urine WBC (Auto) Urine Creatinine Urine Chloride Urine Total Protein Fluid Glucose Fluid Total Protein Vancomycin Trough Miscellaneous Test Crossmatch 06/11/18 06/11/18 06/11/18 06:20 07:41 07:41 WBC RBC Hgb Hct MCHC RDW Plt Count Lymph % (Auto) [place] % (Auto) Lymph # [place] # Seg Neutrophils % Seg Neuts % (Manual) Lymphocytes % (Manual) Seg Neutrophils # Seg Neutrophils # Man Lymphocytes # (Manual) PT INR APTT POC ABG pH POC ABG pCO2 POC ABG pO2 Sodium Potassium Chloride Carbon Dioxide BUN Creatinine Glucose POC Glucose 136 H Lactic Acid Calcium Phosphorus Magnesium Iron TIBC AST ALT Alkaline Phosphatase Lactate Dehydrogenase Total Creatine Kinase C-Reactive Protein Total Protein Albumin CA 19-9 Antigen Folate PTH Intact Urine WBC (Auto) 10.0 H Urine Creatinine 41.2 H Urine Chloride 49.2 L Urine Total Protein 142 H Fluid Glucose Fluid Total Protein Vancomycin Trough Miscellaneous Test Crossmatch 06/11/18 06/12/18 06/12/18 18:35 00:34 04:12 WBC RBC 3.18 L Hgb 9.5 L Hct 28.7 L MCHC RDW 18.5 H Plt Count Lymph % (Auto) 8.1 L [place] % (Auto) Lymph # 0.9 L [place] # Seg Neutrophils % 84.6 H Seg Neuts % (Manual) Lymphocytes % (Manual) Seg Neutrophils # 9.1 H Seg Neutrophils # Man Lymphocytes # (Manual) PT INR APTT POC ABG pH POC ABG pCO2 POC ABG pO2 Sodium Potassium Chloride Carbon Dioxide BUN Creatinine Glucose POC Glucose 125 H 129 H Lactic Acid Calcium Phosphorus Magnesium Iron TIBC AST ALT Alkaline Phosphatase Lactate Dehydrogenase Total Creatine Kinase C-Reactive Protein Total Protein Albumin CA 19-9 Antigen Folate PTH Intact Urine WBC (Auto) Urine Creatinine Urine Chloride Urine Total Protein Fluid Glucose Fluid Total Protein Vancomycin Trough Miscellaneous Test Crossmatch 06/12/18 06/12/18 06/12/18 04:12 06:30 11:43 WBC RBC Hgb Hct MCHC RDW Plt Count Lymph % (Auto) [place] % (Auto) Lymph # [place] # Seg Neutrophils % Seg Neuts % (Manual) Lymphocytes % (Manual) Seg Neutrophils # Seg Neutrophils # Man Lymphocytes # (Manual) PT INR APTT POC ABG pH POC ABG pCO2 POC ABG pO2 Sodium Potassium Chloride 108.5 H Carbon Dioxide 21 L BUN 72 H Creatinine 3.0 H Glucose 122 H POC Glucose 129 H 126 H Lactic Acid Calcium 7.8 L Phosphorus Magnesium Iron TIBC AST 45 H ALT Alkaline Phosphatase 200 H Lactate Dehydrogenase Total Creatine Kinase 34 L C-Reactive Protein Total Protein Albumin 1.7 L CA 19-9 Antigen Folate PTH Intact Urine WBC (Auto) Urine Creatinine Urine Chloride Urine Total Protein Fluid Glucose Fluid Total Protein Vancomycin Trough Miscellaneous Test Crossmatch 06/12/18 06/12/18 06/13/18 16:00 23:56 03:44 WBC RBC Hgb Hct MCHC RDW Plt Count Lymph % (Auto) [place] % (Auto) Lymph # [place] # Seg Neutrophils % Seg Neuts % (Manual) Lymphocytes % (Manual) Seg Neutrophils # Seg Neutrophils # Man Lymphocytes # (Manual) PT INR APTT POC ABG pH POC ABG pCO2 POC ABG pO2 Sodium Potassium Chloride Carbon Dioxide BUN Creatinine Glucose POC Glucose 123 H 128 H 121 H Lactic Acid Calcium Phosphorus Magnesium Iron TIBC AST ALT Alkaline Phosphatase Lactate Dehydrogenase Total Creatine Kinase C-Reactive Protein Total Protein Albumin CA 19-9 Antigen Folate PTH Intact Urine WBC (Auto) Urine Creatinine Urine Chloride Urine Total Protein Fluid Glucose Fluid Total Protein Vancomycin Trough Miscellaneous Test Crossmatch 06/13/18 05:59 WBC RBC Hgb Hct MCHC RDW Plt Count Lymph % (Auto) [place] % (Auto) Lymph # [place] # Seg Neutrophils % Seg Neuts % (Manual) Lymphocytes % (Manual) Seg Neutrophils # Seg Neutrophils # Man Lymphocytes # (Manual) PT INR APTT POC ABG pH POC ABG pCO2 POC ABG pO2 Sodium 134 L Potassium Chloride Carbon Dioxide 20 L BUN 69 H Creatinine 2.9 H Glucose 113 H POC Glucose Lactic Acid Calcium 7.8 L Phosphorus Magnesium Iron TIBC AST ALT Alkaline Phosphatase Lactate Dehydrogenase Total Creatine Kinase C-Reactive Protein Total Protein Albumin CA 19-9 Antigen Folate PTH Intact Urine WBC (Auto) Urine Creatinine Urine Chloride Urine Total Protein Fluid Glucose Fluid Total Protein Vancomycin Trough Miscellaneous Test Crossmatch Chest x-ray: image reviewed Allied health notes reviewed: nursing
[2018-06-13] MEDS ORDERED: TPN ADULT 2,016 ML IV SCH (20:00)
[2018-06-13] MEDS ORDERED: INTRALIPID 20% 250 ML IV SCH (20:00)
[2018-06-14] MEDS: HumuLIN R SUB-Q SCH ×4 (01:00→22:50)
[2018-06-14] MEDS: APRESOLINE PO SCH ×3 (06:46→22:46)
--- NOTE | 2018-06-14 06:59 | Hem/Onc Progress Note ---
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 Ultrasound Kidneys showed bilat hydronephrosis CT Abd shows Pelvic mass with multiple large lymph nodes Had bilateral nephrostomy tubes placed 05/14/[address] Freeman. abnormal renal function - HD - as per nephrology #Acute DVT right leg - below knee No anticoagulation for now because of bilateral nephrostomy tubes and abdo issues. 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 Ct chest was done - CTA - no PE treatment for pneumonia LTAC eval pt using O2 - has neck line and drains CA 19-9 - 57 - elevated repeat dvt study of rt leg - Patient Problems (1) Pelvic mass in male Current Visit: Yes Status: Acute Subjective Date of service: 06/14/18 Principal diagnosis: sq cell ca Interval history: pt had diverting colostomy 05/26 has colostomy on o2 slightly SOB - says is OK Objective - Constitutional Vitals: Last Vital Signs Temp 98.3 F 06/14/18 05:51 Pulse 84 06/14/18 05:51 Resp 20 06/14/18 05:51 BP 125/79 06/14/18 05:51 Pulse Ox 89 06/14/18 05:51 General appearance: mild distress Performance status: 4-completely disabled - EENT Eyes: PERRL Lymph node exam: negative cervical, negative supraclavicular - Respiratory Respiratory effort: Positive: normal Respiratory: bilateral: CTA (anteriorly) - Cardiovascular Heart Sounds: Present: S1 & S2 - Gastrointestinal General gastrointestinal: Present: soft, other (colostomy) Rectal Exam: deferred - Genitourinary Male genitourinary: Present: deferred - Musculoskeletal Musculoskeletal: generalized weakness - Neurologic Neurologic: moves all extremities - Labs Lab Results: Laboratory Results - last 24 hr 06/13/18 06/13/18 06/14/18 11:29 16:28 01:08 POC Glucose 124 H 105 128 H
[2018-06-14 07:25] LABS: Calcium 7.8 mg/dL (8.4-10.2)
[2018-06-14 07:31] LABS: Hematocrit 27.3 % (35.5-45.6); Hemoglobin 8.8 gm/dl (11.8-15.2); Mean Corpuscular HGB Conc 32 % (32-34); Mean Corpuscular Hemoglobin 29 pg (28-32); Mean Corpuscular Volume 90 fl (84-94); Platelet Count 323 K/mm3 (140-440); Red Blood Count 3.02 M/mm3 (3.65-5.03); Red Cell Distribution Width 18.6 % (13.2-15.2)
[2018-06-14] MEDS: NORMODYNE PO SCH ×3 (08:00→20:57)
--- NOTE | 2018-06-14 08:52 | Progress Note ---
Assessment and Plan 1. Acute kidney injury: Initial MARYLOU in the setting of bilateral hydronephrosis secondary to pelvic mass , now s/p bilateral nephrostomy. Recurrent Acute kidney injury likely ATN now. Patient required urgent hemodialysis due to worsening renal function and persistent hyperkalemia. Last dialyzed on 06/02/18. Slight increase in the BUN and Creatinine level noted. Start on 1/2 NS. Renal prognosis is guarded. On PPN / TPN. 2. Electrolytes: Hypernatremia, improved. Monitor. 3. Bowel obstruction: S/p ostomy. 4. Bilateral hydronephrosis: Secondary to pelvic mass. S/p bilateral nephrostomy. S/p Cysto and drainage of abscess. 5. Respiratory failure: S/p extubated. 6. Hypertension: On Clonidine patch and PO Labetalol. Monitor BP. 7. Sepsis: Complicated UTI and pneumonia. 8. Anemia. 9. 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 Await LTAC placement. Subjective Date of service: 06/14/18 Principal diagnosis: sq cell ca Interval history: Patient was seen and examined at the bedside. On liquid diet. Objective - Vital Signs Vital signs: Vital Signs - 12hr 06/13/18 06/13/18 06/14/18 21:10 21:23 00:02 Temperature 98.6 F Pulse Rate 84 84 85 Respiratory 18 20 Rate Blood Pressure 175/93 O2 Sat by Pulse 98 97 Oximetry 06/14/18 05:51 Temperature 98.3 F Pulse Rate 84 Respiratory 20 Rate Blood Pressure 125/79 O2 Sat by Pulse 89 Oximetry - General Appearance General appearance: well-developed, appears stated age, other (not in distress) EENT: ATNC, PERRL, mucous membranes moist, hearing intact Neck: supple Respiratory: Present: Clear to Ascultation Cardiology: regular, S1S2, no murmurs Gastrointestinal: normoactive bowel sounds, no tenderness, distended, other ( abdominal binder, bilateral Nephrostomy, ostomy and drain noted) Integumentary: no rash Neurologic: no focal deficit, no asterixis Musculoskeletal: other (no edema) - Lab 06/14/18 06:42 06/14/18 06:42 Most recent lab results Calcium 7.8 mg/dL (8.4-10.2) L 06/14/18 06:42 Phosphorus 4.50 mg/dL (2.5-4.5) 06/14/18 06:42 Magnesium 2.20 mg/dL (1.7-2.3) 06/14/18 06:42 Urine Creatinine 41.2 mg/dL (0.1-20.0) H 06/11/18 07:41 Urine Sodium 79 mmol/L 06/11/18 07:41 Urine Total Protein 142 mg/dL (5-11.8) H 06/11/18 07:41
[2018-06-14] MEDS: ZOSYN/NS 2.25 GM/50ML 2.25 GM/50 ML BAG IV SCH ×2 (09:27→22:48)
[2018-06-14] MEDS: FOLVITE PO SCH (09:28)
[2018-06-14] MEDS: FERROUS SULFATE PO SCH ×2 (09:28→22:47)
[2018-06-14] MEDS: PEPCID IV SCH (09:30)
[2018-06-14] MEDS: CATAPRES-TTS PATCH TD SCH (10:00)
[2018-06-14 10:20] LABS: INR 1.24 (0.87-1.13)
--- NOTE | 2018-06-14 12:22 | Progress Note ---
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 Continue pain control PRN Bilateral pneumonia (possibly aspiration) Monitor respiratory status Continue Nebs PRN Continue antibiotic Sepsis Continue Zosyn Acute kidney injury (obstructive uropathy vs contrast nephropathy) was on hemodialysis temporarily. Stable renal function. Dialysis catheter removed as per nephrology Continue to monitor BMP and kidney fuction Had bilateral nephrostomy tubes placed 05/14/[address] Freeman. Acute deep venous thrombosis Anticoagulation on hold because of anemia, bilateral nephrostomy tubes and abdominal surgerys Moderate to severe protein calorie malnutrition Continue tube feeding Started on diet and tolerating Hypokalemia, now resolved Potassium and mag replacement as needed Anemia due to Chronic illness s/p PRBC transfusion Bilateral moderate pleural effusion, for thoracentesis Plan is for LTAC. Dr. Smiley had lengthy family meeting on 06/09/18. present was Dr. Lopez, Dr. Bass, myself, community case manager and Karen, from admin, and Patient's sister Adriana and brother. They discussed diagnosis, management and plan and arranged for him to go to LTAC, and later chemotherapy when strong enough. All her questions were answered. Patient is medically stable to go to LTAC. community case manager working on placement. History Interval history: No new issues overnight. Hospitalist Physical - Constitutional Vitals: Temp Pulse Resp BP Pulse Ox 98.6 F 83 18 144/85 98 06/14/18 08:51 06/14/18 08:51 06/14/18 08:51 06/14/18 08:51 06/14/18 10:00 General appearance: Present: no acute distress - EENT Eyes: Present: PERRL, EOM intact ENT: hearing intact, clear oral mucosa, dentition normal - Neck Neck: Present: supple, normal ROM - Respiratory Respiratory effort: normal Respiratory: bilateral: CTA - Cardiovascular Rhythm: regular Heart Sounds: Present: S1 & S2. Absent: gallop, rub - Extremities Extremities: no ischemia, No edema, Full ROM - Abdominal General gastrointestinal: soft, non-tender, non-distended, normal bowel sounds - Integumentary Integumentary: Present: clear, warm, dry - Neurologic Neurologic: CNII-XII intact, moves all extremities Results - Labs CBC & Chem 7: 06/14/18 06:42 06/14/18 06:42 Labs: Laboratory Last Values WBC 11.3 K/mm3 (4.5-11.0) H 06/14/18 06:42 RBC 3.02 M/mm3 (3.65-5.03) L 06/14/18 06:42 Hgb 8.8 gm/dl (11.8-15.2) L 06/14/18 06:42 Hct 27.3 % (35.5-45.6) L 06/14/18 06:42 MCV 90 fl (84-94) 06/14/18 06:42 MCH 29 pg (28-32) 06/14/18 06:42 MCHC 32 % (32-34) 06/14/18 06:42 RDW 18.6 % (13.2-15.2) H 06/14/18 06:42 Plt Count 323 K/mm3 (140-440) 06/14/18 06:42 Lymph % (Auto) 8.1 % (13.4-35.0) L 06/12/18 04:12 Bureau % (Auto) 6.1 % (0.0-7.3) 06/12/18 04:12 Eos % (Auto) 0.5 % (0.0-4.3) 06/12/18 04:12 Baso % (Auto) 0.7 % (0.0-1.8) 06/12/18 04:12 Lymph # 0.9 K/mm3 (1.2-5.4) L 06/12/18 04:12 Bureau # 0.7 K/mm3 (0.0-0.8) 06/12/18 04:12 Eos # 0.1 K/mm3 (0.0-0.4) 06/12/18 04:12 Baso # 0.1 K/mm3 (0.0-0.1) 06/12/18 04:12 Add Manual Diff Complete 05/31/18 04:50 Total Counted 100 05/31/18 04:50 Seg Neutrophils % 84.6 % (40.0-70.0) H 06/12/18 04:12 Seg Neuts % (Manual) 91.0 % (40.0-70.0) H 05/31/18 04:50 Band Neutrophils % 2.0 % 05/31/18 04:50 Lymphocytes % (Manual) 2.0 % (13.4-35.0) L 05/31/18 04:50 Reactive Lymphs % (Man) 0 % 05/31/18 04:50 Monocytes % (Manual) 2.0 % (0.0-7.3) 05/31/18 04:50 Eosinophils % (Manual) 1.0 % (0.0-4.3) 05/31/18 04:50 Basophils % (Manual) 0 % (0.0-1.8) 05/31/18 04:50 Metamyelocytes % 1.0 % 05/31/18 04:50 Myelocytes % 1.0 % 05/31/18 04:50 Promyelocytes % 0 % 05/31/18 04:50 Blast Cells % 0 % 05/31/18 04:50 Nucleated RBC % Not Reportable 05/31/18 04:50 Seg Neutrophils # 9.1 K/mm3 (1.8-7.7) H 06/12/18 04:12 Seg Neutrophils # Man 17.0 K/mm3 (1.8-7.7) H 05/31/18 04:50 Band Neutrophils # 0.4 K/mm3 05/31/18 04:50 Lymphocytes # (Manual) 0.4 K/mm3 (1.2-5.4) L 05/31/18 04:50 Abs React Lymphs (Man) 0.0 K/mm3 05/31/18 04:50 Monocytes # (Manual) 0.4 K/mm3 (0.0-0.8) 05/31/18 04:50 Eosinophils # (Manual) 0.2 K/mm3 (0.0-0.4) 05/31/18 04:50 Basophils # (Manual) 0.0 K/mm3 (0.0-0.1) 05/31/18 04:50 Metamyelocytes # 0.2 K/mm3 05/31/18 04:50 Myelocytes # 0.2 K/mm3 05/31/18 04:50 Promyelocytes # 0.0 K/mm3 05/31/18 04:50 Blast Cells # 0.0 K/mm3 05/31/18 04:50 WBC Morphology Not Reportable 05/31/18 04:50 Hypersegmented Neuts Not Reportable 05/31/18 04:50 Hyposegmented Neuts Not Reportable 05/31/18 04:50 Hypogranular Neuts Not Reportable 05/31/18 04:50 Smudge Cells Not Reportable 05/31/18 04:50 Toxic Granulation Not Reportable 05/31/18 04:50 Toxic Vacuolation Not Reportable 05/31/18 04:50 Dohle Bodies Not Reportable 05/31/18 04:50 Pelger-Huet Anomaly Not Reportable 05/31/18 04:50 Mahesh Rods Not Reportable 05/31/18 04:50 Platelet Estimate Appears normal 05/31/18 04:50 Clumped Platelets Not Reportable 05/31/18 04:50 Plt Clumps, EDTA Not Reportable 05/31/18 04:50 Large Platelets Not Reportable 05/31/18 04:50 Giant Platelets Not Reportable 05/31/18 04:50 Platelet Satelliting Not Reportable 05/31/18 04:50 Plt Morphology Comment Not Reportable 05/31/18 04:50 RBC Morphology Not Reportable 05/31/18 04:50 Dimorphic RBCs Not Reportable 05/31/18 04:50 Polychromasia Not Reportable 05/31/18 04:50 Hypochromasia Few 05/31/18 04:50 Poikilocytosis Not Reportable 05/31/18 04:50 Anisocytosis 1+ 05/31/18 04:50 Microcytosis Few 05/31/18 04:50 Macrocytosis Not Reportable 05/31/18 04:50 Spherocytes Not Reportable 05/31/18 04:50 Pappenheimer Bodies Not Reportable 05/31/18 04:50 Sickle Cells Not Reportable 05/31/18 04:50 Target Cells Rare 05/31/18 04:50 Tear Drop Cells Not Reportable 05/31/18 04:50 Ovalocytes 1+ 05/31/18 04:50 Helmet Cells Not Reportable 05/31/18 04:50 Hernandez-Langeloth Bodies Not Reportable 05/31/18 04:50 [place] Rings Not Reportable 05/31/18 04:50 Nory Cells Not Reportable 05/31/18 04:50 Bite Cells Not Reportable 05/31/18 04:50 Crenated Cell Not Reportable 05/31/18 04:50 Elliptocytes Not Reportable 05/31/18 04:50 Acanthocytes (Spur) Not Reportable 05/31/18 04:50 Rouleaux Not Reportable 05/31/18 04:50 Hemoglobin C Crystals Not Reportable 05/31/18 04:50 Schistocytes Not Reportable 05/31/18 04:50 Malaria parasites Not Reportable 05/31/18 04:50 Mk Bodies Not Reportable 05/31/18 04:50 Hem Pathologist Commnt No 05/31/18 04:50 PT 16.3 Sec. (12.2-14.9) H 06/14/18 09:50 INR 1.24 (0.87-1.13) H 06/14/18 09:50 APTT 40.0 Sec. (24.2-36.6) H 05/23/18 09:03 POC ABG pH 7.362 (7.35-7.45) 05/31/18 09:58 POC ABG pCO2 36.4 (35-45) 05/31/18 09:58 POC ABG pO2 101 (80-105) 05/31/18 09:58 POC ABG HCO3 20.7 05/31/18 09:58 POC ABG Total CO2 22 05/31/18 09:58 POC ABG O2 Sat 98 05/31/18 09:58 POC ABG Base Excess -5 05/31/18 09:58 FiO2 40 % 05/31/18 09:58 Sodium 132 mmol/L (137-145) L 06/14/18 06:42 Potassium 4.3 mmol/L (3.6-5.0) 06/14/18 06:42 Chloride 101.6 mmol/L (98-107) 06/14/18 06:42 Carbon Dioxide 19 mmol/L (22-30) L 06/14/18 06:42 Anion Gap 16 mmol/L 06/14/18 06:42 BUN 71 mg/dL (9-20) H 06/14/18 06:42 Creatinine 3.1 mg/dL (0.8-1.5) H 06/14/18 06:42 Estimated GFR 26 ml/min 06/14/18 06:42 BUN/Creatinine Ratio 23 % 06/14/18 06:42 Glucose 82 mg/dL (75-100) 06/14/18 06:42 POC Glucose 81 (70-105) 06/14/18 06:32 Hemoglobin A1c 5.7 % (4-6) 05/14/18 05:05 Lactic Acid 3.80 mmol/L (0.7-2.0) H* 05/26/18 11:00 Calcium 7.8 mg/dL (8.4-10.2) L 06/14/18 06:42 Phosphorus 4.50 mg/dL (2.5-4.5) 06/14/18 06:42 Magnesium 2.20 mg/dL (1.7-2.3) 06/14/18 06:42 Iron 24 ug/dL (49-181) L 05/16/18 07:02 TIBC 160 mcg/dL (250-450) L 05/16/18 07:02 Ferritin 325.8 ng/mL (13.0-400.0) 05/16/18 07:02 Total Bilirubin 0.30 mg/dL (0.1-1.2) 06/12/18 04:12 AST 45 units/L (5-40) H 06/12/18 04:12 ALT 29 units/L (7-56) 06/12/18 04:12 Alkaline Phosphatase 200 units/L (35-129) H 06/12/18 04:12 Lactate Dehydrogenase 297 units/L (91-180) H 06/08/18 21:36 Total Creatine Kinase 34 units/L (55-170) L 06/12/18 04:12 CK-MB (CK-2) 2.3 ng/mL (0.0-4.0) 05/25/18 22:46 CK-MB (CK-2) Rel Index 1.4 (0-4) 05/25/18 22:46 C-Reactive Protein 3.60 mg/dL (0.00-1.30) H 06/10/18 17:15 Total Protein 7.3 g/dL (6.3-8.2) 06/12/18 04:12 Albumin 1.7 g/dL (3.9-5) L 06/12/18 04:12 Albumin/Globulin Ratio 0.3 % 06/12/18 04:12 Triglycerides 112 mg/dL (2-149) 06/03/18 03:31 CA 19-9 Antigen 57 U/mL (<34) H 06/08/18 21:43 Prostate Specific Ag 0.96 ng/mL (0.00-4.00) 05/14/18 13:29 Vitamin B12 359.2 pg/mL (211-911) 05/16/18 07:02 Folate 5.39 ng/mL (7.3-26.0) L 05/16/18 07:02 TSH 3.180 mlU/mL (0.270-4.200) 05/14/18 05:05 PTH Intact 65.37 pg/mL (15-65) H 05/14/18 05:05 Urine Color Yellow (Yellow) 06/11/18 07:41 Urine Turbidity Slightly-cloudy (Clear) 06/11/18 07:41 Urine pH 6.0 (5.0-7.0) 06/11/18 07:41 Ur Specific Vincent 1.011 (1.003-1.030) 06/11/18 07:41 Urine Protein 100 mg/dl mg/dL (Negative) 06/11/18 07:41 Urine Glucose (UA) 150 mg/dL (Negative) 06/11/18 07:41 Urine Ketones Neg mg/dL (Negative) 06/11/18 07:41 Urine Blood Sm (Negative) 06/11/18 07:41 Urine Nitrite Neg (Negative) 06/11/18 07:41 Urine Bilirubin Neg (Negative) 06/11/18 07:41 Urine Urobilinogen < 2.0 mg/dL (<2.0) 06/11/18 07:41 Ur Leukocyte Esterase Sm (Negative) 06/11/18 07:41 Urine WBC (Auto) 10.0 /HPF (0.0-6.0) H 06/11/18 07:41 Urine RBC (Auto) 5.0 /HPF (0.0-6.0) 06/11/18 07:41 U Epithel Cells (Auto) 1.0 /HPF (0-13.0) 06/11/18 07:41 Urine Bacteria (Auto) 1+ /HPF (Negative) 06/11/18 07:41 Urine WBC Clumps Few /HPF 05/13/18 19:39 Urine Mucus Few /HPF 06/11/18 07:41 Ur Yeast w Hyphae Few /HPF 06/11/18 07:41 Urine Yeast (Budding) Few /HPF 06/11/18 07:41 Urine Creatinine 41.2 mg/dL (0.1-20.0) H 06/11/18 07:41 Urine Sodium 79 mmol/L 06/11/18 07:41 Urine Potassium 13.27 mmol/L 06/11/18 07:41 Urine Chloride 49.2 mmolL (110-250) L 06/11/18 07:41 Urine Total Protein 142 mg/dL (5-11.8) H 06/11/18 07:41 Fluid Type Ascitic 06/03/18 Unknown Fluid Color Yellow 06/03/18 Unknown Fluid Appearance Cloudy 06/03/18 Unknown Fluid WBC 97900 /mm3 06/03/18 Unknown Fluid RBC 9 /mm3 06/03/18 Unknown Fluid Seg Neutrophils 98.0 % 06/03/18 Unknown Fluid Lymphocytes 2.0 % 06/03/18 Unknown Fluid Reactive Lymphs 0 % 06/03/18 Unknown Fluid Monocytes 0 % 06/03/18 Unknown Fluid Eosinophils 0 % 06/03/18 Unknown Fluid Basophils 0 % 06/03/18 Unknown Fluid Glucose 10 mg/dL (40-70) L 06/03/18 Unknown Fluid Total Protein 3.7 (15.0-45.0) L 06/03/18 Unknown Fluid Albumin 0.8 g/dL 06/03/18 Unknown Fluid LDH > 10338 06/03/18 Unknown Fluid Amylase 126 06/03/18 Unknown Vancomycin Trough 25.1 ug/mL (5.0-20.0) H 05/25/18 22:46 Random Vancomycin 34.3 ug/mL (0-40.0) 05/26/18 11:01 Urine Opiates Screen Presumptive negative 06/11/18 07:41 Urine Methadone Screen Presumptive negative 06/11/18 07:41 Ur Barbiturates Screen Presumptive negative 06/11/18 07:41 Ur Phencyclidine Scrn Presumptive negative 06/11/18 07:41 Ur Amphetamines Screen Presumptive negative 06/11/18 07:41 U Benzodiazepines Scrn Presumptive negative 06/11/18 07:41 Urine Cocaine Screen Presumptive negative 06/11/18 07:41 U Marijuana (THC) Screen Presumptive negative 06/11/18 07:41 Drugs of Abuse Note Disclamer 06/11/18 07:41 ZEUS Screen Negative (Negative) 05/14/18 05:05 Proteinase 3 (PR3) Ab <1.0 AI (<1.0) 05/14/18 05:05 Myeloperoxidase Ab <1.0 AI (<1.0) 05/14/18 05:05 Complement C3 147 mg/dL (82-185) 05/14/18 05:05 Complement C4 45 mg/dL (15-53) 05/14/18 05:05 Hepatitis A IgM Ab Nonreactive (NonReactive) 05/27/18 13:41 Hep Bs Antigen Non-reactive (Negative) 05/27/18 13:41 Hep B Core IgM Ab Non-reactive (NonReactive) 05/27/18 13:41 Hepatitis C Antibody Non-reactive (NonReactive) 05/27/18 13:41 Miscellaneous Test Flexitest 1 H 06/09/18 07:37 Blood Type O POSITIVE 06/09/18 13:24 Antibody Screen Negative 06/09/18 13:24 Crossmatch See Detail 06/09/18 13:24
[2018-06-14] MEDS ORDERED: XYLOCAINE 1% 20 mL ONE (13:39)
--- NOTE | 2018-06-14 15:25 | Procedure Note ---
Date of procedure: 06/14/18 Pre-op diagnosis: right pleural effusion Post-op diagnosis: same Procedure: US thoracentesis Findings: moderate right pleural effusion Anesthesia: local Surgeon: DELMAR CARLOS Estimated blood loss: none Pathology: list (120cc) Specimen disposition: to lab Condition: stable Disposition: floor
--- NOTE | 2018-06-14 15:30 | Ultrasound Report ---
ULTRASOUND THORACENTESIS History: Right pleural effusion Description of procedure: Informed consent was obtained. Sterile technique was utilized. 1% lidocaine for skin anesthesia. Using ultrasound guidance, a 5 [place] centesis needle was advanced into the right pleural space. There was spontaneous return of relatively clear yellow fluid. 600 cc of fluid was aspirated. 120 cc of fluid was sent to the lab for analysis. No complications. Impression: Successful ultrasound-guided right thoracentesis.
--- NOTE | 2018-06-14 17:33 | Progress Note ---
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 Hypertensive urgency, Sinus tachycardia with HR 160s CTA negative for PE Hyperkalemia Hypernatrmia Metabolic acidosis Acute blood loss anemia Moderate to severe protein calorie malnutrition - continue supplemental oxygen to keep sats > 90% - NIPPV prn for work of breathing -discussed fluid management with renal service, avoid over-hydration in view of respiratory status -prn CXR, may need thoracentesis - continue bronchodilators with pulmonary hygiene per RT - HD/UF for toxin and volume clearance - continue anti-infective's per ID recs - continue TPN , enteral feeding per surgery service - Malignancy per heme-oncologist - continue mobility protocol for pressure ulcer prevention -PT/OT - s/p surgery 05/26 (had ex-lap; matted abdominal organs, pus - Enterostomy tube decompression,loop colostomy and large triple lumen sump drainage of pelvis) - s/p bilateral nephrostomy tubes placed 05/14/[address] Freeman.(CTA negative for P.E.) - continue other care per attending / other consultants -discharge planning...probably SNF to complete antibiotics and for low level rehab Full code status Subjective Date of service: 06/14/18 Principal diagnosis: sq cell ca Interval history: Patient is seen today for: Acute Hypoxemic Resp Failure; Sepsis Syndrome; Acute VTE; Prostate Cancer Seen and examined. vitals, labs, medications, chart reviewed.; 24hour events reviewed; nursing and respiratory care staff consulted; no adverse overnight events reported to me; Objective Vital Signs - 12hr 06/14/18 06/14/18 06/14/18 05:51 08:51 10:00 Temperature 98.3 F 98.6 F Pulse Rate 84 83 Respiratory 20 18 Rate Blood Pressure 125/79 144/85 Blood Pressure [Left] O2 Sat by Pulse 89 91 98 Oximetry 06/14/18 06/14/18 12:35 17:07 Temperature 98.2 F 98.0 F Pulse Rate 72 Respiratory 18 18 Rate Blood Pressure Blood Pressure 145/80 136/74 [Left] O2 Sat by Pulse 95 95 Oximetry Constitutional: no acute distress, alert, other (chronically ill looking middle aged AAM, normocephalic and atraumatic, ) Eyes: non-icteric ENT: oropharynx moist Neck: supple, no lymphadenopathy, no JVD, other (no thyromegaly) Effort: mildly labored Ascultation: Bilateral: diminished breath sounds, rhonchi (scant in bases) Percussion: Bilateral: not dull Cardiovascular: regular rate and rhythm, other (No R/M) Gastrointestinal: hypoactive bowel sounds, soft, tender (mild), other (Distended ; No palpable HSM, bilateral nephrostomy tubes,Colostomy, ZAKI drain) Integumentary: other (femoral vascath) Extremities: no cyanosis, no edema, pulses normal, no ischemia or petechiae Neurologic: normal mental status, non-focal exam, pupils equal and round, other (weak) Psychiatric: mood appropriate, affect normal CBC and BMP: 06/14/18 06:42 06/14/18 06:42 ABG, PT/INR, D-dimer: ABG POC ABG pH 7.362 (7.35-7.45) 05/31/18 09:58 POC ABG pCO2 36.4 (35-45) 05/31/18 09:58 POC ABG pO2 101 (80-105) 05/31/18 09:58 POC ABG HCO3 20.7 05/31/18 09:58 POC ABG Total CO2 22 05/31/18 09:58 POC ABG O2 Sat 98 05/31/18 09:58 PT/INR, D-dimer PT 16.3 Sec. (12.2-14.9) H 06/14/18 09:50 INR 1.24 (0.87-1.13) H 06/14/18 09:50 Abnormal lab findings: Abnormal Labs 05/13/18 05/13/18 05/13/18 04:27 04:27 19:39 WBC RBC 3.13 L Hgb 9.4 L Hct 26.8 L MCHC 35 H RDW Plt Count Lymph % (Auto) [place] % (Auto) 9.6 H Lymph # [place] # Seg Neutrophils % Seg Neuts % (Manual) Lymphocytes % (Manual) Seg Neutrophils # Seg Neutrophils # Man Lymphocytes # (Manual) PT INR APTT POC ABG pH POC ABG pCO2 POC ABG pO2 Sodium 132 L Potassium 5.5 H Chloride 94.1 L Carbon Dioxide 19 L BUN 72 H Creatinine 14.4 H Glucose POC Glucose Lactic Acid Calcium Phosphorus Magnesium Iron TIBC AST ALT Alkaline Phosphatase Lactate Dehydrogenase Total Creatine Kinase C-Reactive Protein Total Protein Albumin 2.8 L CA 19-9 Antigen Folate PTH Intact Urine WBC (Auto) Urine Creatinine 66.0 H Urine Chloride 27.8 L Urine Total Protein 24 H Fluid Glucose Fluid Total Protein Vancomycin Trough Miscellaneous Test Crossmatch 05/13/18 05/14/18 05/14/18 20:00 05:05 05:05 WBC RBC Hgb Hct MCHC RDW Plt Count Lymph % (Auto) [place] % (Auto) Lymph # [place] # Seg Neutrophils % Seg Neuts % (Manual) Lymphocytes % (Manual) Seg Neutrophils # Seg Neutrophils # Man Lymphocytes # (Manual) PT INR APTT POC ABG pH POC ABG pCO2 POC ABG pO2 Sodium 132 L 131 L Potassium 5.2 H 5.8 H Chloride 93.0 L 95.6 L Carbon Dioxide 19 L 20 L BUN 74 H 81 H Creatinine 15.0 H 16.6 H Glucose 134 H 127 H POC Glucose Lactic Acid Calcium 8.2 L 7.9 L Phosphorus 6.30 H Magnesium Iron TIBC AST ALT Alkaline Phosphatase Lactate Dehydrogenase Total Creatine Kinase 236 H C-Reactive Protein Total Protein Albumin CA 19-9 Antigen Folate PTH Intact 65.37 H Urine WBC (Auto) Urine Creatinine Urine Chloride Urine Total Protein Fluid Glucose Fluid Total Protein Vancomycin Trough Miscellaneous Test Crossmatch 05/14/18 05/14/18 05/14/18 09:28 10:56 13:29 WBC RBC Hgb Hct MCHC RDW Plt Count Lymph % (Auto) [place] % (Auto) Lymph # [place] # Seg Neutrophils % Seg Neuts % (Manual) Lymphocytes % (Manual) Seg Neutrophils # Seg Neutrophils # Man Lymphocytes # (Manual) PT INR APTT 38.2 H POC ABG pH POC ABG pCO2 POC ABG pO2 Sodium Potassium Chloride Carbon Dioxide BUN Creatinine Glucose POC Glucose 127 H 126 H Lactic Acid Calcium Phosphorus Magnesium Iron TIBC AST ALT Alkaline Phosphatase Lactate Dehydrogenase Total Creatine Kinase C-Reactive Protein Total Protein Albumin CA 19-9 Antigen Folate PTH Intact Urine WBC (Auto) Urine Creatinine Urine Chloride Urine Total Protein Fluid Glucose Fluid Total Protein Vancomycin Trough Miscellaneous Test Crossmatch 05/15/18 05/15/18 05/16/18 08:06 08:06 07:02 WBC RBC 2.84 L 2.74 L Hgb 8.5 L 8.5 L Hct 24.2 L 23.5 L MCHC 35 H 36 H RDW Plt Count Lymph % (Auto) [place] % (Auto) 10.4 H 11.0 H Lymph # 1.1 L [place] # 0.9 H Seg Neutrophils % 72.6 H Seg Neuts % (Manual) Lymphocytes % (Manual) Seg Neutrophils # Seg Neutrophils # Man Lymphocytes # (Manual) PT INR APTT POC ABG pH POC ABG pCO2 POC ABG pO2 Sodium Potassium Chloride Carbon Dioxide 19 L BUN 66 H Creatinine 12.0 H Glucose 115 H POC Glucose Lactic Acid Calcium 8.1 L Phosphorus Magnesium Iron TIBC AST ALT Alkaline Phosphatase Lactate Dehydrogenase Total Creatine Kinase C-Reactive Protein Total Protein Albumin CA 19-9 Antigen Folate PTH Intact Urine WBC (Auto) Urine Creatinine Urine Chloride Urine Total Protein Fluid Glucose Fluid Total Protein Vancomycin Trough Miscellaneous Test Crossmatch 05/16/18 05/16/18 05/17/18 07:02 07:02 05:08 WBC RBC 2.78 L Hgb 8.2 L Hct 23.9 L MCHC RDW Plt Count Lymph % (Auto) [place] % (Auto) 13.9 H Lymph # [place] # 0.9 H Seg Neutrophils % Seg Neuts % (Manual) Lymphocytes % (Manual) Seg Neutrophils # Seg Neutrophils # Man Lymphocytes # (Manual) PT INR APTT POC ABG pH POC ABG pCO2 POC ABG pO2 Sodium Potassium Chloride Carbon Dioxide BUN 28 H Creatinine 2.4 H D Glucose POC Glucose Lactic Acid Calcium 8.3 L Phosphorus Magnesium 1.50 L Iron 24 L TIBC 160 L AST ALT Alkaline Phosphatase Lactate Dehydrogenase Total Creatine Kinase C-Reactive Protein Total Protein Albumin CA 19-9 Antigen Folate 5.39 L PTH Intact Urine WBC (Auto) Urine Creatinine Urine Chloride Urine Total Protein Fluid Glucose Fluid Total Protein Vancomycin Trough Miscellaneous Test Crossmatch 05/17/18 05/18/18 05/18/18 05:08 05:57 05:57 WBC RBC 2.79 L Hgb 8.3 L Hct 24.0 L MCHC 35 H RDW Plt Count Lymph % (Auto) [place] % (Auto) 11.8 H Lymph # [place] # 0.9 H Seg Neutrophils % Seg Neuts % (Manual) Lymphocytes % (Manual) Seg Neutrophils # Seg Neutrophils # Man Lymphocytes # (Manual) PT INR APTT POC ABG pH POC ABG pCO2 POC ABG pO2 Sodium Potassium Chloride Carbon Dioxide BUN Creatinine Glucose POC Glucose Lactic Acid Calcium 7.7 L 8.0 L Phosphorus Magnesium 1.60 L Iron TIBC AST ALT Alkaline Phosphatase Lactate Dehydrogenase Total Creatine Kinase C-Reactive Protein Total Protein Albumin CA 19-9 Antigen Folate PTH Intact Urine WBC (Auto) Urine Creatinine Urine Chloride Urine Total Protein Fluid Glucose Fluid Total Protein Vancomycin Trough Miscellaneous Test Crossmatch 05/19/18 05/19/18 05/20/18 05:33 05:33 05:38 WBC RBC 2.95 L Hgb 8.8 L Hct 25.8 L MCHC RDW Plt Count Lymph % (Auto) 10.1 L [place] % (Auto) Lymph # 1.1 L [place] # Seg Neutrophils % 85.2 H Seg Neuts % (Manual) Lymphocytes % (Manual) Seg Neutrophils # 9.0 H Seg Neutrophils # Man Lymphocytes # (Manual) PT INR APTT POC ABG pH POC ABG pCO2 POC ABG pO2 Sodium 135 L Potassium Chloride Carbon Dioxide BUN Creatinine Glucose 132 H POC Glucose Lactic Acid Calcium 7.8 L 8.3 L Phosphorus Magnesium 1.40 L Iron TIBC AST ALT Alkaline Phosphatase Lactate Dehydrogenase Total Creatine Kinase C-Reactive Protein Total Protein Albumin CA 19-9 Antigen Folate PTH Intact Urine WBC (Auto) Urine Creatinine Urine Chloride Urine Total Protein Fluid Glucose Fluid Total Protein Vancomycin Trough Miscellaneous Test Crossmatch 05/21/18 05/21/18 05/22/18 04:46 15:30 06:49 WBC 20.0 H RBC 2.70 L Hgb 7.8 L Hct 23.3 L MCHC RDW Plt Count Lymph % (Auto) [place] % (Auto) Lymph # [place] # Seg Neutrophils % Seg Neuts % (Manual) 85.0 H Lymphocytes % (Manual) 4.0 L Seg Neutrophils # Seg Neutrophils # Man 17.0 H Lymphocytes # (Manual) 0.8 L PT INR APTT POC ABG pH POC ABG pCO2 POC ABG pO2 Sodium 135 L Potassium 3.5 L Chloride Carbon Dioxide 21 L BUN 22 H Creatinine Glucose POC Glucose Lactic Acid Calcium 8.1 L Phosphorus Magnesium Iron TIBC AST ALT Alkaline Phosphatase Lactate Dehydrogenase Total Creatine Kinase C-Reactive Protein Total Protein Albumin CA 19-9 Antigen Folate PTH Intact Urine WBC (Auto) 28.0 H Urine Creatinine Urine Chloride Urine Total Protein Fluid Glucose Fluid Total Protein Vancomycin Trough Miscellaneous Test Crossmatch 05/22/18 05/22/18 05/23/18 06:49 11:23 09:03 WBC RBC Hgb Hct MCHC RDW Plt Count Lymph % (Auto) [place] % (Auto) Lymph # [place] # Seg Neutrophils % Seg Neuts % (Manual) Lymphocytes % (Manual) Seg Neutrophils # Seg Neutrophils # Man Lymphocytes # (Manual) PT INR APTT POC ABG pH POC ABG pCO2 POC ABG pO2 Sodium 134 L Potassium 3.5 L Chloride Carbon Dioxide 21 L BUN 35 H 36 H Creatinine 1.7 H Glucose 107 H POC Glucose Lactic Acid Calcium 7.9 L Phosphorus Magnesium 2.50 H Iron TIBC AST ALT Alkaline Phosphatase Lactate Dehydrogenase Total Creatine Kinase C-Reactive Protein Total Protein Albumin CA 19-9 Antigen Folate PTH Intact Urine WBC (Auto) Urine Creatinine Urine Chloride Urine Total Protein Fluid Glucose Fluid Total Protein Vancomycin Trough Miscellaneous Test Crossmatch See Detail 05/23/18 05/23/18 05/23/18 09:03 09:03 17:34 WBC 26.3 H RBC 3.57 L Hgb 10.4 L Hct 31.1 L D MCHC RDW Plt Count Lymph % (Auto) [place] % (Auto) Lymph # [place] # Seg Neutrophils % Seg Neuts % (Manual) Lymphocytes % (Manual) Seg Neutrophils # Seg Neutrophils # Man Lymphocytes # (Manual) PT 18.3 H INR 1.43 H APTT 40.0 H POC ABG pH POC ABG pCO2 POC ABG pO2 Sodium Potassium Chloride Carbon Dioxide BUN Creatinine Glucose POC Glucose 108 H Lactic Acid Calcium Phosphorus Magnesium Iron TIBC AST ALT Alkaline Phosphatase Lactate Dehydrogenase Total Creatine Kinase C-Reactive Protein Total Protein Albumin CA 19-9 Antigen Folate PTH Intact Urine WBC (Auto) Urine Creatinine Urine Chloride Urine Total Protein Fluid Glucose Fluid Total Protein Vancomycin Trough Miscellaneous Test Crossmatch 05/23/18 05/24/18 05/24/18 21:14 04:43 08:04 WBC RBC Hgb Hct MCHC RDW Plt Count Lymph % (Auto) [place] % (Auto) Lymph # [place] # Seg Neutrophils % Seg Neuts % (Manual) Lymphocytes % (Manual) Seg Neutrophils # Seg Neutrophils # Man Lymphocytes # (Manual) PT INR APTT POC ABG pH POC ABG pCO2 POC ABG pO2 Sodium 146 H Potassium Chloride 108.6 H Carbon Dioxide BUN 33 H Creatinine Glucose 109 H POC Glucose 110 H 106 H Lactic Acid Calcium 8.3 L Phosphorus Magnesium 2.50 H Iron TIBC AST ALT Alkaline Phosphatase Lactate Dehydrogenase Total Creatine Kinase C-Reactive Protein Total Protein Albumin CA 19-9 Antigen Folate PTH Intact Urine WBC (Auto) Urine Creatinine Urine Chloride Urine Total Protein Fluid Glucose Fluid Total Protein Vancomycin Trough Miscellaneous Test Crossmatch 05/25/18 05/25/18 05/25/18 05:42 05:49 19:50 WBC RBC Hgb Hct MCHC RDW Plt Count Lymph % (Auto) [place] % (Auto) Lymph # [place] # Seg Neutrophils % Seg Neuts % (Manual) Lymphocytes % (Manual) Seg Neutrophils # Seg Neutrophils # Man Lymphocytes # (Manual) PT INR APTT POC ABG pH POC ABG pCO2 POC ABG pO2 Sodium 150 H Potassium Chloride 112.5 H Carbon Dioxide BUN 34 H Creatinine Glucose 102 H POC Glucose 107 H Lactic Acid Calcium Phosphorus Magnesium Iron TIBC AST ALT Alkaline Phosphatase Lactate Dehydrogenase Total Creatine Kinase C-Reactive Protein 34.50 H Total Protein Albumin CA 19-9 Antigen Folate PTH Intact Urine WBC (Auto) Urine Creatinine Urine Chloride Urine Total Protein Fluid Glucose Fluid Total Protein Vancomycin Trough Miscellaneous Test Crossmatch 05/25/18 05/25/18 05/25/18 19:50 21:05 22:46 WBC RBC Hgb Hct MCHC RDW Plt Count Lymph % (Auto) [place] % (Auto) Lymph # [place] # Seg Neutrophils % Seg Neuts % (Manual) Lymphocytes % (Manual) Seg Neutrophils # Seg Neutrophils # Man Lymphocytes # (Manual) PT INR APTT POC ABG pH 7.483 H POC ABG pCO2 24.0 L POC ABG pO2 72 L Sodium Potassium Chloride Carbon Dioxide BUN Creatinine Glucose POC Glucose Lactic Acid 5.90 H* Calcium Phosphorus Magnesium Iron TIBC AST ALT Alkaline Phosphatase Lactate Dehydrogenase Total Creatine Kinase C-Reactive Protein Total Protein Albumin CA 19-9 Antigen Folate PTH Intact Urine WBC (Auto) Urine Creatinine Urine Chloride Urine Total Protein Fluid Glucose Fluid Total Protein Vancomycin Trough 25.1 H Miscellaneous Test Crossmatch 05/25/18 05/26/18 05/26/18 22:46 00:21 00:51 WBC RBC Hgb Hct MCHC RDW Plt Count Lymph % (Auto) [place] % (Auto) Lymph # [place] # Seg Neutrophils % Seg Neuts % (Manual) Lymphocytes % (Manual) Seg Neutrophils # Seg Neutrophils # Man Lymphocytes # (Manual) PT INR APTT POC ABG pH POC ABG pCO2 POC ABG pO2 Sodium Potassium Chloride Carbon Dioxide BUN Creatinine Glucose POC Glucose 133 H Lactic Acid 8.10 H* 6.20 H* Calcium Phosphorus Magnesium Iron TIBC AST ALT Alkaline Phosphatase Lactate Dehydrogenase Total Creatine Kinase C-Reactive Protein Total Protein Albumin CA 19-9 Antigen Folate PTH Intact Urine WBC (Auto) Urine Creatinine Urine Chloride Urine Total Protein Fluid Glucose Fluid Total Protein Vancomycin Trough Miscellaneous Test Crossmatch 05/26/18 05/26/18 05/26/18 01:13 02:24 02:24 WBC 18.7 H RBC Hgb 11.6 L Hct MCHC RDW Plt Count Lymph % (Auto) [place] % (Auto) Lymph # [place] # Seg Neutrophils % Seg Neuts % (Manual) Lymphocytes % (Manual) Seg Neutrophils # Seg Neutrophils # Man Lymphocytes # (Manual) PT INR APTT POC ABG pH POC ABG pCO2 POC ABG pO2 Sodium 147 H Potassium 6.2 H* D Chloride 111.9 H Carbon Dioxide 19 L BUN 80 H Creatinine 5.1 H D Glucose 112 H POC Glucose Lactic Acid 5.20 H* Calcium 6.7 L D Phosphorus Magnesium Iron TIBC AST ALT Alkaline Phosphatase Lactate Dehydrogenase Total Creatine Kinase C-Reactive Protein Total Protein Albumin CA 19-9 Antigen Folate PTH Intact Urine WBC (Auto) Urine Creatinine Urine Chloride Urine Total Protein Fluid Glucose Fluid Total Protein Vancomycin Trough Miscellaneous Test Crossmatch 05/26/18 05/26/18 05/26/18 04:20 04:20 05:39 WBC RBC Hgb Hct MCHC RDW Plt Count Lymph % (Auto) [place] % (Auto) Lymph # [place] # Seg Neutrophils % Seg Neuts % (Manual) Lymphocytes % (Manual) Seg Neutrophils # Seg Neutrophils # Man Lymphocytes # (Manual) PT INR APTT POC ABG pH POC ABG pCO2 POC ABG pO2 Sodium 150 H Potassium Chloride 110.0 H Carbon Dioxide 19 L BUN 66 H Creatinine Glucose 166 H POC Glucose 187 H Lactic Acid 5.10 H* Calcium 6.9 L Phosphorus 6.70 H D Magnesium Iron TIBC AST ALT Alkaline Phosphatase Lactate Dehydrogenase Total Creatine Kinase C-Reactive Protein Total Protein Albumin CA 19-9 Antigen Folate PTH Intact Urine WBC (Auto) Urine Creatinine Urine Chloride Urine Total Protein Fluid Glucose Fluid Total Protein Vancomycin Trough Miscellaneous Test Crossmatch 05/26/18 05/26/18 05/26/18 06:02 07:29 11:00 WBC RBC Hgb Hct MCHC RDW Plt Count Lymph % (Auto) [place] % (Auto) Lymph # [place] # Seg Neutrophils % Seg Neuts % (Manual) Lymphocytes % (Manual) Seg Neutrophils # Seg Neutrophils # Man Lymphocytes # (Manual) PT INR APTT POC ABG pH POC ABG pCO2 28.8 L POC ABG pO2 Sodium Potassium Chloride Carbon Dioxide BUN Creatinine Glucose POC Glucose Lactic Acid 4.80 H* 3.80 H* Calcium Phosphorus Magnesium Iron TIBC AST ALT Alkaline Phosphatase Lactate Dehydrogenase Total Creatine Kinase C-Reactive Protein Total Protein Albumin CA 19-9 Antigen Folate PTH Intact Urine WBC (Auto) Urine Creatinine Urine Chloride Urine Total Protein Fluid Glucose Fluid Total Protein Vancomycin Trough Miscellaneous Test Crossmatch 05/26/18 05/26/18 05/26/18 11:01 12:28 18:00 WBC RBC Hgb Hct MCHC RDW Plt Count Lymph % (Auto) [place] % (Auto) Lymph # [place] # Seg Neutrophils % Seg Neuts % (Manual) Lymphocytes % (Manual) Seg Neutrophils # Seg Neutrophils # Man Lymphocytes # (Manual) PT INR APTT POC ABG pH POC ABG pCO2 POC ABG pO2 Sodium 150 H 151 H Potassium 5.3 H D 6.1 H* Chloride 110.3 H 117.0 H Carbon Dioxide 21 L 20 L BUN 75 H 77 H Creatinine 4.3 H D 4.6 H Glucose 161 H POC Glucose 114 H Lactic Acid Calcium 7.5 L 6.7 L Phosphorus Magnesium Iron TIBC AST 1041 H ALT 406 H Alkaline Phosphatase 281 H Lactate Dehydrogenase Total Creatine Kinase C-Reactive Protein Total Protein 4.4 L Albumin 1.3 L CA 19-9 Antigen Folate PTH Intact Urine WBC (Auto) Urine Creatinine Urine Chloride Urine Total Protein Fluid Glucose Fluid Total Protein Vancomycin Trough Miscellaneous Test Crossmatch 05/26/18 05/26/18 05/27/18 18:02 19:17 01:01 WBC 21.7 H RBC 2.70 L Hgb 7.8 L D Hct 24.6 L D MCHC RDW 15.3 H Plt Count Lymph % (Auto) [place] % (Auto) Lymph # [place] # Seg Neutrophils % Seg Neuts % (Manual) 94.0 H Lymphocytes % (Manual) 3.0 L Seg Neutrophils # Seg Neutrophils # Man 20.4 H Lymphocytes # (Manual) 0.7 L PT INR APTT POC ABG pH 7.159 L 7.205 L POC ABG pCO2 54.5 H 53.0 H POC ABG pO2 252 H Sodium Potassium Chloride Carbon Dioxide BUN Creatinine Glucose POC Glucose Lactic Acid Calcium Phosphorus Magnesium Iron TIBC AST ALT Alkaline Phosphatase Lactate Dehydrogenase Total Creatine Kinase C-Reactive Protein Total Protein Albumin CA 19-9 Antigen Folate PTH Intact Urine WBC (Auto) Urine Creatinine Urine Chloride Urine Total Protein Fluid Glucose Fluid Total Protein Vancomycin Trough Miscellaneous Test Crossmatch 05/27/18 05/27/18 05/27/18 05:15 05:15 06:11 WBC 24.9 H RBC 2.86 L Hgb 8.1 L Hct 25.9 L MCHC RDW 15.5 H Plt Count Lymph % (Auto) [place] % (Auto) Lymph # [place] # Seg Neutrophils % Seg Neuts % (Manual) Lymphocytes % (Manual) Seg Neutrophils # Seg Neutrophils # Man Lymphocytes # (Manual) PT INR APTT POC ABG pH 7.265 L POC ABG pCO2 46.2 H POC ABG pO2 111 H Sodium 149 H Potassium 6.9 H* Chloride 113.5 H Carbon Dioxide BUN 89 H Creatinine 5.2 H Glucose 118 H POC Glucose Lactic Acid Calcium 7.0 L Phosphorus 9.70 H D Magnesium Iron TIBC AST 876 H ALT 408 H Alkaline Phosphatase Lactate Dehydrogenase Total Creatine Kinase C-Reactive Protein Total Protein 5.2 L Albumin 1.5 L CA 19-9 Antigen Folate PTH Intact Urine WBC (Auto) Urine Creatinine Urine Chloride Urine Total Protein Fluid Glucose Fluid Total Protein Vancomycin Trough Miscellaneous Test Crossmatch 05/27/18 05/27/18 05/27/18 08:48 10:22 10:22 WBC RBC Hgb Hct MCHC RDW Plt Count Lymph % (Auto) [place] % (Auto) Lymph # [place] # Seg Neutrophils % Seg Neuts % (Manual) Lymphocytes % (Manual) Seg Neutrophils # Seg Neutrophils # Man Lymphocytes # (Manual) PT INR APTT POC ABG pH POC ABG pCO2 POC ABG pO2 Sodium 146 H Potassium 6.1 H* Chloride 108.2 H Carbon Dioxide 21 L BUN 88 H Creatinine 5.6 H Glucose 163 H POC Glucose 164 H Lactic Acid Calcium 6.7 L Phosphorus Magnesium Iron TIBC AST ALT Alkaline Phosphatase Lactate Dehydrogenase Total Creatine Kinase C-Reactive Protein 40.70 H Total Protein Albumin CA 19-9 Antigen Folate PTH Intact Urine WBC (Auto) Urine Creatinine Urine Chloride Urine Total Protein Fluid Glucose Fluid Total Protein Vancomycin Trough Miscellaneous Test Crossmatch 05/27/18 05/27/18 05/27/18 13:02 17:39 23:27 WBC RBC Hgb Hct MCHC RDW Plt Count Lymph % (Auto) [place] % (Auto) Lymph # [place] # Seg Neutrophils % Seg Neuts % (Manual) Lymphocytes % (Manual) Seg Neutrophils # Seg Neutrophils # Man Lymphocytes # (Manual) PT INR APTT POC ABG pH POC ABG pCO2 POC ABG pO2 Sodium Potassium Chloride Carbon Dioxide BUN Creatinine Glucose POC Glucose 59 L 132 H Lactic Acid Calcium Phosphorus Magnesium Iron TIBC AST ALT Alkaline Phosphatase Lactate Dehydrogenase Total Creatine Kinase C-Reactive Protein Total Protein Albumin CA 19-9 Antigen Folate PTH Intact Urine WBC (Auto) Urine Creatinine Urine Chloride Urine Total Protein Fluid Glucose Fluid Total Protein Vancomycin Trough Miscellaneous Test Flexitest 1 H Crossmatch 05/27/18 05/28/18 05/28/18 Unknown 04:32 05:00 WBC RBC Hgb Hct MCHC RDW Plt Count Lymph % (Auto) [place] % (Auto) Lymph # [place] # Seg Neutrophils % Seg Neuts % (Manual) Lymphocytes % (Manual) Seg Neutrophils # Seg Neutrophils # Man Lymphocytes # (Manual) PT INR APTT POC ABG pH POC ABG pCO2 POC ABG pO2 134 H Sodium Potassium Chloride Carbon Dioxide BUN 69 H Creatinine 4.4 H Glucose 118 H POC Glucose Lactic Acid Calcium 8.0 L D Phosphorus 6.80 H D Magnesium Iron TIBC AST ALT Alkaline Phosphatase Lactate Dehydrogenase Total Creatine Kinase C-Reactive Protein Total Protein Albumin CA 19-9 Antigen Folate PTH Intact Urine WBC (Auto) 120.0 H Urine Creatinine Urine Chloride Urine Total Protein Fluid Glucose Fluid Total Protein Vancomycin Trough Miscellaneous Test Crossmatch 05/28/18 05/28/18 05/28/18 05:00 05:27 13:04 WBC 26.5 H RBC 2.69 L Hgb 7.7 L Hct 23.6 L MCHC RDW Plt Count Lymph % (Auto) [place] % (Auto) Lymph # [place] # Seg Neutrophils % Seg Neuts % (Manual) 96.0 H Lymphocytes % (Manual) 0 L Seg Neutrophils # Seg Neutrophils # Man 25.4 H Lymphocytes # (Manual) 0.0 L PT INR APTT POC ABG pH POC ABG pCO2 POC ABG pO2 Sodium Potassium Chloride Carbon Dioxide BUN Creatinine Glucose POC Glucose 128 H 155 H Lactic Acid Calcium Phosphorus Magnesium Iron TIBC AST ALT Alkaline Phosphatase Lactate Dehydrogenase Total Creatine Kinase C-Reactive Protein Total Protein Albumin CA 19-9 Antigen Folate PTH Intact Urine WBC (Auto) Urine Creatinine Urine Chloride Urine Total Protein Fluid Glucose Fluid Total Protein Vancomycin Trough Miscellaneous Test Crossmatch 05/28/18 05/29/18 05/29/18 17:56 03:35 04:00 WBC RBC Hgb Hct MCHC RDW Plt Count Lymph % (Auto) [place] % (Auto) Lymph # [place] # Seg Neutrophils % Seg Neuts % (Manual) Lymphocytes % (Manual) Seg Neutrophils # Seg Neutrophils # Man Lymphocytes # (Manual) PT INR APTT POC ABG pH 7.471 H POC ABG pCO2 POC ABG pO2 78 L Sodium Potassium Chloride Carbon Dioxide BUN 50 H Creatinine 3.9 H Glucose POC Glucose 110 H Lactic Acid Calcium 7.7 L Phosphorus Magnesium 1.50 L Iron TIBC AST 218 H ALT 204 H Alkaline Phosphatase Lactate Dehydrogenase Total Creatine Kinase C-Reactive Protein Total Protein 5.4 L Albumin 1.6 L CA 19-9 Antigen Folate PTH Intact Urine WBC (Auto) Urine Creatinine Urine Chloride Urine Total Protein Fluid Glucose Fluid Total Protein Vancomycin Trough Miscellaneous Test Crossmatch 05/29/18 05/29/18 05/30/18 11:51 23:56 04:54 WBC RBC Hgb Hct MCHC RDW Plt Count Lymph % (Auto) [place] % (Auto) Lymph # [place] # Seg Neutrophils % Seg Neuts % (Manual) Lymphocytes % (Manual) Seg Neutrophils # Seg Neutrophils # Man Lymphocytes # (Manual) PT INR APTT POC ABG pH POC ABG pCO2 POC ABG pO2 Sodium Potassium Chloride Carbon Dioxide BUN Creatinine Glucose POC Glucose 131 H 119 H 115 H Lactic Acid Calcium Phosphorus Magnesium Iron TIBC AST ALT Alkaline Phosphatase Lactate Dehydrogenase Total Creatine Kinase C-Reactive Protein Total Protein Albumin CA 19-9 Antigen Folate PTH Intact Urine WBC (Auto) Urine Creatinine Urine Chloride Urine Total Protein Fluid Glucose Fluid Total Protein Vancomycin Trough Miscellaneous Test Crossmatch 05/30/18 05/30/18 05/30/18 05:07 05:15 05:15 WBC 16.2 H RBC 2.53 L Hgb 7.4 L Hct 21.9 L MCHC RDW Plt Count Lymph % (Auto) [place] % (Auto) Lymph # [place] # Seg Neutrophils % Seg Neuts % (Manual) Lymphocytes % (Manual) Seg Neutrophils # Seg Neutrophils # Man Lymphocytes # (Manual) PT INR APTT POC ABG pH POC ABG pCO2 34.5 L POC ABG pO2 133 H Sodium 135 L Potassium Chloride 97.5 L Carbon Dioxide BUN 69 H Creatinine 5.4 H Glucose 105 H POC Glucose Lactic Acid Calcium 7.5 L Phosphorus 5.30 H D Magnesium Iron TIBC AST ALT Alkaline Phosphatase Lactate Dehydrogenase Total Creatine Kinase C-Reactive Protein Total Protein Albumin CA 19-9 Antigen Folate PTH Intact Urine WBC (Auto) Urine Creatinine Urine Chloride Urine Total Protein Fluid Glucose Fluid Total Protein Vancomycin Trough Miscellaneous Test Crossmatch 05/30/18 05/30/18 05/31/18 12:13 17:10 04:50 WBC 18.7 H RBC 2.86 L Hgb 8.2 L Hct 24.8 L MCHC RDW Plt Count Lymph % (Auto) [place] % (Auto) Lymph # [place] # Seg Neutrophils % Seg Neuts % (Manual) 91.0 H Lymphocytes % (Manual) 2.0 L Seg Neutrophils # Seg Neutrophils # Man 17.0 H Lymphocytes # (Manual) 0.4 L PT INR APTT POC ABG pH POC ABG pCO2 POC ABG pO2 Sodium Potassium Chloride Carbon Dioxide BUN Creatinine Glucose POC Glucose 132 H 122 H Lactic Acid Calcium Phosphorus Magnesium Iron TIBC AST ALT Alkaline Phosphatase Lactate Dehydrogenase Total Creatine Kinase C-Reactive Protein Total Protein Albumin CA 19-9 Antigen Folate PTH Intact Urine WBC (Auto) Urine Creatinine Urine Chloride Urine Total Protein Fluid Glucose Fluid Total Protein Vancomycin Trough Miscellaneous Test Crossmatch 05/31/18 05/31/18 05/31/18 04:50 05:45 11:37 WBC RBC Hgb Hct MCHC RDW Plt Count Lymph % (Auto) [place] % (Auto) Lymph # [place] # Seg Neutrophils % Seg Neuts % (Manual) Lymphocytes % (Manual) Seg Neutrophils # Seg Neutrophils # Man Lymphocytes # (Manual) PT INR APTT POC ABG pH POC ABG pCO2 POC ABG pO2 Sodium 132 L Potassium Chloride 92.4 L Carbon Dioxide BUN 77 H Creatinine 5.9 H Glucose POC Glucose 111 H 136 H Lactic Acid Calcium 7.3 L Phosphorus 6.40 H D Magnesium Iron TIBC AST ALT Alkaline Phosphatase Lactate Dehydrogenase Total Creatine Kinase C-Reactive Protein Total Protein Albumin CA 19-9 Antigen Folate PTH Intact Urine WBC (Auto) Urine Creatinine Urine Chloride Urine Total Protein Fluid Glucose Fluid Total Protein Vancomycin Trough Miscellaneous Test Crossmatch 05/31/18 06/01/18 06/01/18 17:52 00:09 04:00 WBC RBC Hgb Hct MCHC RDW Plt Count Lymph % (Auto) [place] % (Auto) Lymph # [place] # Seg Neutrophils % Seg Neuts % (Manual) Lymphocytes % (Manual) Seg Neutrophils # Seg Neutrophils # Man Lymphocytes # (Manual) PT INR APTT POC ABG pH POC ABG pCO2 POC ABG pO2 Sodium Potassium Chloride 97.5 L Carbon Dioxide BUN 49 H Creatinine 4.2 H Glucose 104 H POC Glucose 115 H 114 H Lactic Acid Calcium 7.3 L Phosphorus 4.70 H D Magnesium Iron TIBC AST ALT Alkaline Phosphatase Lactate Dehydrogenase Total Creatine Kinase C-Reactive Protein Total Protein Albumin CA 19-9 Antigen Folate PTH Intact Urine WBC (Auto) Urine Creatinine Urine Chloride Urine Total Protein Fluid Glucose Fluid Total Protein Vancomycin Trough Miscellaneous Test Crossmatch 06/01/18 06/01/18 06/02/18 11:10 17:56 00:15 WBC RBC Hgb Hct MCHC RDW Plt Count Lymph % (Auto) [place] % (Auto) Lymph # [place] # Seg Neutrophils % Seg Neuts % (Manual) Lymphocytes % (Manual) Seg Neutrophils # Seg Neutrophils # Man Lymphocytes # (Manual) PT INR APTT POC ABG pH POC ABG pCO2 POC ABG pO2 Sodium Potassium Chloride Carbon Dioxide BUN Creatinine Glucose POC Glucose 123 H 126 H 135 H Lactic Acid Calcium Phosphorus Magnesium Iron TIBC AST ALT Alkaline Phosphatase Lactate Dehydrogenase Total Creatine Kinase C-Reactive Protein Total Protein Albumin CA 19-9 Antigen Folate PTH Intact Urine WBC (Auto) Urine Creatinine Urine Chloride Urine Total Protein Fluid Glucose Fluid Total Protein Vancomycin Trough Miscellaneous Test Crossmatch 06/02/18 06/02/18 06/02/18 05:23 12:42 13:05 WBC RBC Hgb Hct MCHC RDW Plt Count Lymph % (Auto) [place] % (Auto) Lymph # [place] # Seg Neutrophils % Seg Neuts % (Manual) Lymphocytes % (Manual) Seg Neutrophils # Seg Neutrophils # Man Lymphocytes # (Manual) PT 17.1 H INR 1.34 H APTT POC ABG pH POC ABG pCO2 POC ABG pO2 Sodium Potassium Chloride Carbon Dioxide BUN Creatinine Glucose POC Glucose 135 H 142 H Lactic Acid Calcium Phosphorus Magnesium Iron TIBC AST ALT Alkaline Phosphatase Lactate Dehydrogenase Total Creatine Kinase C-Reactive Protein Total Protein Albumin CA 19-9 Antigen Folate PTH Intact Urine WBC (Auto) Urine Creatinine Urine Chloride Urine Total Protein Fluid Glucose Fluid Total Protein Vancomycin Trough Miscellaneous Test Crossmatch 06/02/18 06/02/18 06/03/18 Unknown Unknown 00:54 WBC 20.8 H RBC 2.67 L Hgb 7.7 L Hct 23.0 L MCHC RDW Plt Count 500 H Lymph % (Auto) [place] % (Auto) Lymph # [place] # Seg Neutrophils % Seg Neuts % (Manual) Lymphocytes % (Manual) Seg Neutrophils # Seg Neutrophils # Man Lymphocytes # (Manual) PT INR APTT POC ABG pH POC ABG pCO2 POC ABG pO2 Sodium 136 L Potassium 3.5 L Chloride 96.9 L Carbon Dioxide BUN 62 H Creatinine 4.9 H Glucose 133 H POC Glucose 125 H Lactic Acid Calcium 7.2 L Phosphorus 5.00 H Magnesium Iron TIBC AST 46 H ALT 66 H Alkaline Phosphatase Lactate Dehydrogenase Total Creatine Kinase C-Reactive Protein Total Protein 5.7 L Albumin 1.5 L CA 19-9 Antigen Folate PTH Intact Urine WBC (Auto) Urine Creatinine Urine Chloride Urine Total Protein Fluid Glucose Fluid Total Protein Vancomycin Trough Miscellaneous Test Crossmatch 06/03/18 06/03/18 06/03/18 03:31 09:18 09:18 WBC RBC Hgb Hct MCHC RDW Plt Count Lymph % (Auto) [place] % (Auto) Lymph # [place] # Seg Neutrophils % Seg Neuts % (Manual) Lymphocytes % (Manual) Seg Neutrophils # Seg Neutrophils # Man Lymphocytes # (Manual) PT 17.1 H INR 1.34 H APTT POC ABG pH POC ABG pCO2 POC ABG pO2 Sodium 136 L Potassium Chloride Carbon Dioxide BUN 41 H Creatinine 3.4 H Glucose 129 H POC Glucose Lactic Acid Calcium 7.4 L Phosphorus Magnesium Iron TIBC AST ALT Alkaline Phosphatase Lactate Dehydrogenase Total Creatine Kinase C-Reactive Protein 11.10 H Total Protein Albumin CA 19-9 Antigen Folate PTH Intact Urine WBC (Auto) Urine Creatinine Urine Chloride Urine Total Protein Fluid Glucose Fluid Total Protein Vancomycin Trough Miscellaneous Test Crossmatch 06/03/18 06/03/18 06/03/18 16:07 21:18 Unknown WBC RBC Hgb Hct MCHC RDW Plt Count Lymph % (Auto) [place] % (Auto) Lymph # [place] # Seg Neutrophils % Seg Neuts % (Manual) Lymphocytes % (Manual) Seg Neutrophils # Seg Neutrophils # Man Lymphocytes # (Manual) PT INR APTT POC ABG pH POC ABG pCO2 POC ABG pO2 Sodium Potassium Chloride Carbon Dioxide BUN Creatinine Glucose POC Glucose 144 H 128 H Lactic Acid Calcium Phosphorus Magnesium Iron TIBC AST ALT Alkaline Phosphatase Lactate Dehydrogenase Total Creatine Kinase C-Reactive Protein Total Protein Albumin CA 19-9 Antigen Folate PTH Intact Urine WBC (Auto) Urine Creatinine Urine Chloride Urine Total Protein Fluid Glucose 10 L Fluid Total Protein 3.7 L Vancomycin Trough Miscellaneous Test Crossmatch 06/04/18 06/04/18 06/04/18 04:31 06:14 11:38 WBC RBC Hgb Hct MCHC RDW Plt Count Lymph % (Auto) [place] % (Auto) Lymph # [place] # Seg Neutrophils % Seg Neuts % (Manual) Lymphocytes % (Manual) Seg Neutrophils # Seg Neutrophils # Man Lymphocytes # (Manual) PT INR APTT POC ABG pH POC ABG pCO2 POC ABG pO2 Sodium Potassium Chloride Carbon Dioxide BUN 55 H Creatinine 3.7 H Glucose 151 H POC Glucose 145 H 129 H Lactic Acid Calcium 7.8 L Phosphorus 4.60 H Magnesium Iron TIBC AST ALT Alkaline Phosphatase Lactate Dehydrogenase Total Creatine Kinase C-Reactive Protein Total Protein Albumin CA 19-9 Antigen Folate PTH Intact Urine WBC (Auto) Urine Creatinine Urine Chloride Urine Total Protein Fluid Glucose Fluid Total Protein Vancomycin Trough Miscellaneous Test Crossmatch 06/04/18 06/04/18 06/04/18 17:09 20:00 21:29 WBC RBC Hgb 8.8 L Hct 27.3 L MCHC RDW Plt Count Lymph % (Auto) [place] % (Auto) Lymph # [place] # Seg Neutrophils % Seg Neuts % (Manual) Lymphocytes % (Manual) Seg Neutrophils # Seg Neutrophils # Man Lymphocytes # (Manual) PT INR APTT POC ABG pH POC ABG pCO2 POC ABG pO2 Sodium Potassium Chloride Carbon Dioxide BUN Creatinine Glucose POC Glucose 142 H 130 H Lactic Acid Calcium Phosphorus Magnesium Iron TIBC AST ALT Alkaline Phosphatase Lactate Dehydrogenase Total Creatine Kinase C-Reactive Protein Total Protein Albumin CA 19-9 Antigen Folate PTH Intact Urine WBC (Auto) Urine Creatinine Urine Chloride Urine Total Protein Fluid Glucose Fluid Total Protein Vancomycin Trough Miscellaneous Test Crossmatch 06/05/18 06/05/18 06/05/18 06:30 07:00 07:00 WBC 19.3 H RBC 2.94 L Hgb 8.3 L Hct 25.6 L MCHC RDW 15.7 H Plt Count 568 H Lymph % (Auto) 4.7 L [place] % (Auto) Lymph # 0.9 L [place] # 1.1 H Seg Neutrophils % 88.9 H Seg Neuts % (Manual) Lymphocytes % (Manual) Seg Neutrophils # 17.2 H Seg Neutrophils # Man Lymphocytes # (Manual) PT INR APTT POC ABG pH POC ABG pCO2 POC ABG pO2 Sodium Potassium 3.4 L D Chloride Carbon Dioxide BUN 67 H Creatinine 3.6 H Glucose 145 H POC Glucose 153 H Lactic Acid Calcium 7.9 L Phosphorus 4.60 H Magnesium Iron TIBC AST ALT Alkaline Phosphatase Lactate Dehydrogenase Total Creatine Kinase C-Reactive Protein Total Protein Albumin CA 19-9 Antigen Folate PTH Intact Urine WBC (Auto) Urine Creatinine Urine Chloride Urine Total Protein Fluid Glucose Fluid Total Protein Vancomycin Trough Miscellaneous Test Crossmatch 06/05/18 06/05/18 06/06/18 12:10 16:01 06:39 WBC RBC Hgb Hct MCHC RDW Plt Count Lymph % (Auto) [place] % (Auto) Lymph # [place] # Seg Neutrophils % Seg Neuts % (Manual) Lymphocytes % (Manual) Seg Neutrophils # Seg Neutrophils # Man Lymphocytes # (Manual) PT INR APTT POC ABG pH POC ABG pCO2 POC ABG pO2 Sodium Potassium Chloride Carbon Dioxide BUN Creatinine Glucose POC Glucose 150 H 129 H 131 H Lactic Acid Calcium Phosphorus Magnesium Iron TIBC AST ALT Alkaline Phosphatase Lactate Dehydrogenase Total Creatine Kinase C-Reactive Protein Total Protein Albumin CA 19-9 Antigen Folate PTH Intact Urine WBC (Auto) Urine Creatinine Urine Chloride Urine Total Protein Fluid Glucose Fluid Total Protein Vancomycin Trough Miscellaneous Test Crossmatch 06/06/18 06/06/18 06/06/18 07:14 07:14 07:14 WBC 16.5 H RBC 2.84 L Hgb 8.1 L Hct 25.2 L MCHC RDW 16.4 H Plt Count 526 H Lymph % (Auto) 6.5 L [place] % (Auto) Lymph # 1.1 L [place] # 1.2 H Seg Neutrophils % 85.3 H Seg Neuts % (Manual) Lymphocytes % (Manual) Seg Neutrophils # 14.1 H Seg Neutrophils # Man Lymphocytes # (Manual) PT INR APTT POC ABG pH POC ABG pCO2 POC ABG pO2 Sodium Potassium Chloride 109.1 H Carbon Dioxide 21 L BUN 76 H Creatinine 3.5 H Glucose 111 H POC Glucose Lactic Acid Calcium 8.1 L Phosphorus Magnesium Iron TIBC AST ALT Alkaline Phosphatase Lactate Dehydrogenase Total Creatine Kinase C-Reactive Protein 4.70 H Total Protein Albumin CA 19-9 Antigen Folate PTH Intact Urine WBC (Auto) Urine Creatinine Urine Chloride Urine Total Protein Fluid Glucose Fluid Total Protein Vancomycin Trough Miscellaneous Test Crossmatch 06/06/18 06/06/18 06/06/18 11:15 18:00 23:58 WBC RBC Hgb Hct MCHC RDW Plt Count Lymph % (Auto) [place] % (Auto) Lymph # [place] # Seg Neutrophils % Seg Neuts % (Manual) Lymphocytes % (Manual) Seg Neutrophils # Seg Neutrophils # Man Lymphocytes # (Manual) PT INR APTT POC ABG pH POC ABG pCO2 POC ABG pO2 Sodium Potassium Chloride Carbon Dioxide BUN Creatinine Glucose POC Glucose 127 H 130 H 114 H Lactic Acid Calcium Phosphorus Magnesium Iron TIBC AST ALT Alkaline Phosphatase Lactate Dehydrogenase Total Creatine Kinase C-Reactive Protein Total Protein Albumin CA 19-9 Antigen Folate PTH Intact Urine WBC (Auto) Urine Creatinine Urine Chloride Urine Total Protein Fluid Glucose Fluid Total Protein Vancomycin Trough Miscellaneous Test Crossmatch 06/07/18 06/07/18 06/07/18 05:45 05:45 05:54 WBC 15.5 H RBC 2.60 L Hgb 7.4 L Hct 23.1 L MCHC RDW 16.5 H Plt Count 506 H Lymph % (Auto) 5.3 L [place] % (Auto) Lymph # 0.8 L [place] # 1.0 H Seg Neutrophils % 86.6 H Seg Neuts % (Manual) Lymphocytes % (Manual) Seg Neutrophils # 13.4 H Seg Neutrophils # Man Lymphocytes # (Manual) PT INR APTT POC ABG pH POC ABG pCO2 POC ABG pO2 Sodium Potassium Chloride 108.4 H Carbon Dioxide BUN 84 H Creatinine 3.5 H Glucose 119 H POC Glucose 114 H Lactic Acid Calcium 8.1 L Phosphorus 5.10 H Magnesium Iron TIBC AST ALT Alkaline Phosphatase Lactate Dehydrogenase Total Creatine Kinase C-Reactive Protein Total Protein Albumin CA 19-9 Antigen Folate PTH Intact Urine WBC (Auto) Urine Creatinine Urine Chloride Urine Total Protein Fluid Glucose Fluid Total Protein Vancomycin Trough Miscellaneous Test Crossmatch 06/07/18 06/08/18 06/08/18 12:15 05:05 05:24 WBC RBC Hgb Hct MCHC RDW Plt Count Lymph % (Auto) [place] % (Auto) Lymph # [place] # Seg Neutrophils % Seg Neuts % (Manual) Lymphocytes % (Manual) Seg Neutrophils # Seg Neutrophils # Man Lymphocytes # (Manual) PT INR APTT POC ABG pH POC ABG pCO2 POC ABG pO2 Sodium 148 H Potassium Chloride 112.4 H Carbon Dioxide BUN 89 H Creatinine 3.4 H Glucose 120 H POC Glucose 148 H 115 H Lactic Acid Calcium 7.9 L Phosphorus Magnesium Iron TIBC AST ALT Alkaline Phosphatase Lactate Dehydrogenase Total Creatine Kinase C-Reactive Protein Total Protein Albumin CA 19-9 Antigen Folate PTH Intact Urine WBC (Auto) Urine Creatinine Urine Chloride Urine Total Protein Fluid Glucose Fluid Total Protein Vancomycin Trough Miscellaneous Test Crossmatch 06/08/18 06/08/18 06/08/18 21:36 21:43 21:43 WBC RBC 2.98 L Hgb 8.8 L Hct 26.6 L MCHC RDW 16.7 H Plt Count 463 H Lymph % (Auto) 7.9 L [place] % (Auto) Lymph # 0.8 L [place] # Seg Neutrophils % 84.8 H Seg Neuts % (Manual) Lymphocytes % (Manual) Seg Neutrophils # 8.6 H Seg Neutrophils # Man Lymphocytes # (Manual) PT INR APTT POC ABG pH POC ABG pCO2 POC ABG pO2 Sodium Potassium Chloride Carbon Dioxide BUN Creatinine Glucose POC Glucose Lactic Acid Calcium Phosphorus Magnesium Iron TIBC AST ALT Alkaline Phosphatase Lactate Dehydrogenase 297 H Total Creatine Kinase C-Reactive Protein Total Protein Albumin CA 19-9 Antigen 57 H Folate PTH Intact Urine WBC (Auto) Urine Creatinine Urine Chloride Urine Total Protein Fluid Glucose Fluid Total Protein Vancomycin Trough Miscellaneous Test Crossmatch 06/09/18 06/09/18 06/09/18 00:05 05:34 05:50 WBC RBC Hgb Hct MCHC RDW Plt Count Lymph % (Auto) [place] % (Auto) Lymph # [place] # Seg Neutrophils % Seg Neuts % (Manual) Lymphocytes % (Manual) Seg Neutrophils # Seg Neutrophils # Man Lymphocytes # (Manual) PT INR APTT POC ABG pH POC ABG pCO2 POC ABG pO2 Sodium 153 H Potassium Chloride 117.3 H Carbon Dioxide BUN 84 H Creatinine 3.2 H Glucose 117 H POC Glucose 140 H 146 H Lactic Acid Calcium 7.9 L Phosphorus Magnesium Iron TIBC AST ALT Alkaline Phosphatase Lactate Dehydrogenase Total Creatine Kinase C-Reactive Protein Total Protein Albumin CA 19-9 Antigen Folate PTH Intact Urine WBC (Auto) Urine Creatinine Urine Chloride Urine Total Protein Fluid Glucose Fluid Total Protein Vancomycin Trough Miscellaneous Test Crossmatch 06/09/18 06/09/18 06/09/18 05:50 07:37 10:34 WBC RBC 2.32 L Hgb 6.8 L Hct 20.7 L MCHC RDW 16.7 H Plt Count Lymph % (Auto) [place] % (Auto) Lymph # [place] # Seg Neutrophils % Seg Neuts % (Manual) Lymphocytes % (Manual) Seg Neutrophils # Seg Neutrophils # Man Lymphocytes # (Manual) PT INR APTT POC ABG pH POC ABG pCO2 POC ABG pO2 Sodium 149 H Potassium Chloride 114.6 H Carbon Dioxide BUN 84 H Creatinine 3.1 H Glucose 137 H POC Glucose Lactic Acid Calcium 7.7 L Phosphorus Magnesium Iron TIBC AST ALT Alkaline Phosphatase Lactate Dehydrogenase Total Creatine Kinase C-Reactive Protein Total Protein Albumin CA 19-9 Antigen Folate PTH Intact Urine WBC (Auto) Urine Creatinine Urine Chloride Urine Total Protein Fluid Glucose Fluid Total Protein Vancomycin Trough Miscellaneous Test Flexitest 1 H Crossmatch 06/09/18 06/09/18 06/09/18 10:41 11:56 13:24 WBC RBC 2.43 L Hgb 7.2 L Hct 21.6 L MCHC RDW 16.8 H Plt Count Lymph % (Auto) [place] % (Auto) Lymph # [place] # Seg Neutrophils % Seg Neuts % (Manual) Lymphocytes % (Manual) Seg Neutrophils # Seg Neutrophils # Man Lymphocytes # (Manual) PT INR APTT POC ABG pH POC ABG pCO2 POC ABG pO2 Sodium Potassium Chloride Carbon Dioxide BUN Creatinine Glucose POC Glucose 141 H Lactic Acid Calcium Phosphorus Magnesium Iron TIBC AST ALT Alkaline Phosphatase Lactate Dehydrogenase Total Creatine Kinase C-Reactive Protein Total Protein Albumin CA 19-9 Antigen Folate PTH Intact Urine WBC (Auto) Urine Creatinine Urine Chloride Urine Total Protein Fluid Glucose Fluid Total Protein Vancomycin Trough Miscellaneous Test Crossmatch See Detail 06/09/18 06/09/18 06/10/18 18:18 23:13 05:26 WBC RBC Hgb Hct MCHC RDW Plt Count Lymph % (Auto) [place] % (Auto) Lymph # [place] # Seg Neutrophils % Seg Neuts % (Manual) Lymphocytes % (Manual) Seg Neutrophils # Seg Neutrophils # Man Lymphocytes # (Manual) PT INR APTT POC ABG pH POC ABG pCO2 POC ABG pO2 Sodium 148 H Potassium Chloride 114.7 H Carbon Dioxide 21 L BUN 79 H Creatinine 3.2 H Glucose 121 H POC Glucose 156 H 163 H Lactic Acid Calcium 7.8 L Phosphorus Magnesium 1.60 L Iron TIBC AST ALT Alkaline Phosphatase Lactate Dehydrogenase Total Creatine Kinase C-Reactive Protein Total Protein Albumin CA 19-9 Antigen Folate PTH Intact Urine WBC (Auto) Urine Creatinine Urine Chloride Urine Total Protein Fluid Glucose Fluid Total Protein Vancomycin Trough Miscellaneous Test Crossmatch 06/10/18 06/10/18 06/10/18 05:26 05:31 17:15 WBC 11.1 H RBC 3.07 L Hgb 9.1 L Hct 27.6 L D MCHC RDW 17.4 H Plt Count Lymph % (Auto) [place] % (Auto) Lymph # [place] # Seg Neutrophils % Seg Neuts % (Manual) Lymphocytes % (Manual) Seg Neutrophils # Seg Neutrophils # Man Lymphocytes # (Manual) PT INR APTT POC ABG pH POC ABG pCO2 POC ABG pO2 Sodium Potassium Chloride Carbon Dioxide BUN Creatinine Glucose POC Glucose 128 H Lactic Acid Calcium Phosphorus Magnesium Iron TIBC AST ALT Alkaline Phosphatase Lactate Dehydrogenase Total Creatine Kinase C-Reactive Protein 3.60 H Total Protein Albumin CA 19-9 Antigen Folate PTH Intact Urine WBC (Auto) Urine Creatinine Urine Chloride Urine Total Protein Fluid Glucose Fluid Total Protein Vancomycin Trough Miscellaneous Test Crossmatch 06/11/18 06/11/18 06/11/18 01:13 05:41 05:41 WBC 14.6 H RBC 3.40 L Hgb 9.8 L Hct 30.7 L MCHC RDW 18.1 H Plt Count Lymph % (Auto) [place] % (Auto) Lymph # [place] # Seg Neutrophils % Seg Neuts % (Manual) Lymphocytes % (Manual) Seg Neutrophils # Seg Neutrophils # Man Lymphocytes # (Manual) PT INR APTT POC ABG pH POC ABG pCO2 POC ABG pO2 Sodium Potassium Chloride 110.8 H Carbon Dioxide 18 L BUN 77 H Creatinine 3.0 H Glucose 116 H POC Glucose 126 H Lactic Acid Calcium 7.9 L Phosphorus Magnesium Iron TIBC AST ALT Alkaline Phosphatase Lactate Dehydrogenase Total Creatine Kinase C-Reactive Protein Total Protein Albumin CA 19-9 Antigen Folate PTH Intact Urine WBC (Auto) Urine Creatinine Urine Chloride Urine Total Protein Fluid Glucose Fluid Total Protein Vancomycin Trough Miscellaneous Test Crossmatch 06/11/18 06/11/18 06/11/18 06:20 07:41 07:41 WBC RBC Hgb Hct MCHC RDW Plt Count Lymph % (Auto) [place] % (Auto) Lymph # [place] # Seg Neutrophils % Seg Neuts % (Manual) Lymphocytes % (Manual) Seg Neutrophils # Seg Neutrophils # Man Lymphocytes # (Manual) PT INR APTT POC ABG pH POC ABG pCO2 POC ABG pO2 Sodium Potassium Chloride Carbon Dioxide BUN Creatinine Glucose POC Glucose 136 H Lactic Acid Calcium Phosphorus Magnesium Iron TIBC AST ALT Alkaline Phosphatase Lactate Dehydrogenase Total Creatine Kinase C-Reactive Protein Total Protein Albumin CA 19-9 Antigen Folate PTH Intact Urine WBC (Auto) 10.0 H Urine Creatinine 41.2 H Urine Chloride 49.2 L Urine Total Protein 142 H Fluid Glucose Fluid Total Protein Vancomycin Trough Miscellaneous Test Crossmatch 06/11/18 06/12/18 06/12/18 18:35 00:34 04:12 WBC RBC 3.18 L Hgb 9.5 L Hct 28.7 L MCHC RDW 18.5 H Plt Count Lymph % (Auto) 8.1 L [place] % (Auto) Lymph # 0.9 L [place] # Seg Neutrophils % 84.6 H Seg Neuts % (Manual) Lymphocytes % (Manual) Seg Neutrophils # 9.1 H Seg Neutrophils # Man Lymphocytes # (Manual) PT INR APTT POC ABG pH POC ABG pCO2 POC ABG pO2 Sodium Potassium Chloride Carbon Dioxide BUN Creatinine Glucose POC Glucose 125 H 129 H Lactic Acid Calcium Phosphorus Magnesium Iron TIBC AST ALT Alkaline Phosphatase Lactate Dehydrogenase Total Creatine Kinase C-Reactive Protein Total Protein Albumin CA 19-9 Antigen Folate PTH Intact Urine WBC (Auto) Urine Creatinine Urine Chloride Urine Total Protein Fluid Glucose Fluid Total Protein Vancomycin Trough Miscellaneous Test Crossmatch 06/12/18 06/12/18 06/12/18 04:12 06:30 11:43 WBC RBC Hgb Hct MCHC RDW Plt Count Lymph % (Auto) [place] % (Auto) Lymph # [place] # Seg Neutrophils % Seg Neuts % (Manual) Lymphocytes % (Manual) Seg Neutrophils # Seg Neutrophils # Man Lymphocytes # (Manual) PT INR APTT POC ABG pH POC ABG pCO2 POC ABG pO2 Sodium Potassium Chloride 108.5 H Carbon Dioxide 21 L BUN 72 H Creatinine 3.0 H Glucose 122 H POC Glucose 129 H 126 H Lactic Acid Calcium 7.8 L Phosphorus Magnesium Iron TIBC AST 45 H ALT Alkaline Phosphatase 200 H Lactate Dehydrogenase Total Creatine Kinase 34 L C-Reactive Protein Total Protein Albumin 1.7 L CA 19-9 Antigen Folate PTH Intact Urine WBC (Auto) Urine Creatinine Urine Chloride Urine Total Protein Fluid Glucose Fluid Total Protein Vancomycin Trough Miscellaneous Test Crossmatch 06/12/18 06/12/18 06/13/18 16:00 23:56 03:44 WBC RBC Hgb Hct MCHC RDW Plt Count Lymph % (Auto) [place] % (Auto) Lymph # [place] # Seg Neutrophils % Seg Neuts % (Manual) Lymphocytes % (Manual) Seg Neutrophils # Seg Neutrophils # Man Lymphocytes # (Manual) PT INR APTT POC ABG pH POC ABG pCO2 POC ABG pO2 Sodium Potassium Chloride Carbon Dioxide BUN Creatinine Glucose POC Glucose 123 H 128 H 121 H Lactic Acid Calcium Phosphorus Magnesium Iron TIBC AST ALT Alkaline Phosphatase Lactate Dehydrogenase Total Creatine Kinase C-Reactive Protein Total Protein Albumin CA 19-9 Antigen Folate PTH Intact Urine WBC (Auto) Urine Creatinine Urine Chloride Urine Total Protein Fluid Glucose Fluid Total Protein Vancomycin Trough Miscellaneous Test Crossmatch 06/13/18 06/13/18 06/14/18 05:59 11:29 01:08 WBC RBC Hgb Hct MCHC RDW Plt Count Lymph % (Auto) [place] % (Auto) Lymph # [place] # Seg Neutrophils % Seg Neuts % (Manual) Lymphocytes % (Manual) Seg Neutrophils # Seg Neutrophils # Man Lymphocytes # (Manual) PT INR APTT POC ABG pH POC ABG pCO2 POC ABG pO2 Sodium 134 L Potassium Chloride Carbon Dioxide 20 L BUN 69 H Creatinine 2.9 H Glucose 113 H POC Glucose 124 H 128 H Lactic Acid Calcium 7.8 L Phosphorus Magnesium Iron TIBC AST ALT Alkaline Phosphatase Lactate Dehydrogenase Total Creatine Kinase C-Reactive Protein Total Protein Albumin CA 19-9 Antigen Folate PTH Intact Urine WBC (Auto) Urine Creatinine Urine Chloride Urine Total Protein Fluid Glucose Fluid Total Protein Vancomycin Trough Miscellaneous Test Crossmatch 06/14/18 06/14/18 06/14/18 06:42 06:42 09:50 WBC 11.3 H RBC 3.02 L Hgb 8.8 L Hct 27.3 L MCHC RDW 18.6 H Plt Count Lymph % (Auto) [place] % (Auto) Lymph # [place] # Seg Neutrophils % Seg Neuts % (Manual) Lymphocytes % (Manual) Seg Neutrophils # Seg Neutrophils # Man Lymphocytes # (Manual) PT 16.3 H INR 1.24 H APTT POC ABG pH POC ABG pCO2 POC ABG pO2 Sodium 132 L Potassium Chloride Carbon Dioxide 19 L BUN 71 H Creatinine 3.1 H Glucose POC Glucose Lactic Acid Calcium 7.8 L Phosphorus Magnesium Iron TIBC AST ALT Alkaline Phosphatase Lactate Dehydrogenase Total Creatine Kinase C-Reactive Protein Total Protein Albumin CA 19-9 Antigen Folate PTH Intact Urine WBC (Auto) Urine Creatinine Urine Chloride Urine Total Protein Fluid Glucose Fluid Total Protein Vancomycin Trough Miscellaneous Test Crossmatch 06/14/18 12:31 WBC RBC Hgb Hct MCHC RDW Plt Count Lymph % (Auto) [place] % (Auto) Lymph # [place] # Seg Neutrophils % Seg Neuts % (Manual) Lymphocytes % (Manual) Seg Neutrophils # Seg Neutrophils # Man Lymphocytes # (Manual) PT INR APTT POC ABG pH POC ABG pCO2 POC ABG pO2 Sodium Potassium Chloride Carbon Dioxide BUN Creatinine Glucose POC Glucose 125 H Lactic Acid Calcium Phosphorus Magnesium Iron TIBC AST ALT Alkaline Phosphatase Lactate Dehydrogenase Total Creatine Kinase C-Reactive Protein Total Protein Albumin CA 19-9 Antigen Folate PTH Intact Urine WBC (Auto) Urine Creatinine Urine Chloride Urine Total Protein Fluid Glucose Fluid Total Protein Vancomycin Trough Miscellaneous Test Crossmatch Allied health notes reviewed: nursing
--- NOTE | 2018-06-14 18:53 | XRay Report ---
FINAL REPORT PROCEDURE: Chest. TECHNIQUE: Portable AP view. HISTORY: right pleural effusion, recent thora COMPARISON: Chest 06/10/2018. FINDINGS: The heart size is normal. There is some faint opacity in the left midlung which could represent pneumonia. There is blunting of both costophrenic angles consistent with small pleural effusions. There is a right internal jugular venous catheter that terminates in the SVC. The soft tissues and regional skeleton are unremarkable. IMPRESSION: Small bilateral pleural effusions. Question left midlung consolidation..
[2018-06-14] MEDS ORDERED: TPN ADULT 2,016 ML IV SCH (20:00)
[2018-06-14] MEDS: NACL 0.45% 1000 ML 1,000 ML IV SCH (22:49)
[2018-06-15] MEDS: HumuLIN R SUB-Q SCH ×3 (01:37→12:00)
[2018-06-15] MEDS: APRESOLINE PO SCH ×3 (05:58→22:01)
[2018-06-15 08:15] LABS: Calcium 8.1 mg/dL (8.4-10.2)
--- NOTE | 2018-06-15 08:21 | Progress Note ---
Assessment and Plan 1. Acute kidney injury: Initial MARYLOU in the setting of bilateral hydronephrosis secondary to pelvic mass , now s/p bilateral nephrostomy. Recurrent Acute kidney injury likely ATN now. Patient was on hemodialysis due to worsening renal function and persistent hyperkalemia. Last dialyzed on 06/02/18. BUN and Creatinine level are increasing. Continue IV fluids. Renal prognosis is guarded. On PPN / TPN. 2. Electrolytes: Hypernatremia, improved. Monitor. 3. Bowel obstruction: S/p ostomy. 4. Bilateral hydronephrosis: Secondary to pelvic mass. S/p bilateral nephrostomy. S/p Cysto and drainage of abscess. 5. Respiratory failure: S/p extubated. 6. Hypertension: On Clonidine patch and PO Labetalol. Monitor BP. 7. Sepsis: Complicated UTI and pneumonia. 8. Anemia. 9. 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 Await LTAC placement. Subjective Date of service: 06/15/18 Principal diagnosis: sq cell ca -prostate Interval history: Patient was seen and examined at the bedside. Objective - Vital Signs Vital signs: Vital Signs - 12hr 06/14/18 06/14/18 06/14/18 20:57 21:54 21:55 Temperature Pulse Rate 90 76 Respiratory 18 Rate Blood Pressure O2 Sat by Pulse 99 Oximetry 06/14/18 06/15/18 23:17 04:16 Temperature 98.3 F 98.2 F Pulse Rate 94 H Respiratory 18 18 Rate Blood Pressure 115/73 154/90 O2 Sat by Pulse 100 Oximetry - General Appearance General appearance: well-developed, appears stated age, other (not in distress) EENT: ATNC, PERRL, mucous membranes moist, hearing intact, vision intact Neck: supple Respiratory: Present: Clear to Ascultation Cardiology: regular, S1S2, no murmurs Gastrointestinal: normoactive bowel sounds, distended, other (abdominal binder, bilateral nephrostomy tubes, ostomy and drain noted) Integumentary: no rash, warm and dry Neurologic: no focal deficit, no asterixis Musculoskeletal: other (no edema) - Lab 06/14/18 06:42 06/15/18 06:34 Most recent lab results Calcium 8.1 mg/dL (8.4-10.2) L 06/15/18 06:34 Phosphorus 4.50 mg/dL (2.5-4.5) 06/14/18 06:42 Magnesium 2.30 mg/dL (1.7-2.3) 06/15/18 06:34 Urine Creatinine 41.2 mg/dL (0.1-20.0) H 06/11/18 07:41 Urine Sodium 79 mmol/L 06/11/18 07:41 Urine Total Protein 142 mg/dL (5-11.8) H 06/11/18 07:41
[2018-06-15] MEDS: NORMODYNE PO SCH ×3 (08:30→22:01)
--- NOTE | 2018-06-15 09:11 | Progress Note ---
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 Hypertensive urgency, Sinus tachycardia with HR 160s CTA negative for PE Hyperkalemia Hypernatrmia Metabolic acidosis Acute blood loss anemia Moderate to severe protein calorie malnutrition - continue bronchodilators with pulmonary hygiene per RT - HD/UF for toxin and volume clearance - continue anti-infective's per ID recs - continue TPN , enteral feeding per surgery service - Malignancy per heme-oncologist - continue mobility protocol for pressure ulcer prevention -PT/OT - s/p surgery 05/26 (had ex-lap; matted abdominal organs, pus - Enterostomy tube decompression,loop colostomy and large triple lumen sump drainage of pelvis) - s/p bilateral nephrostomy tubes placed 05/14/[address] Freeman.(CTA negative for P.E.) - continue other care per attending / other consultants -discharge planning...probably SNF to complete antibiotics and for low level rehab Full code status Subjective Date of service: 06/15/18 Principal diagnosis: sq cell ca -prostate Interval history: Patient is seen today for: Acute Hypoxemic Resp Failure; Sepsis Syndrome; Acute VTE; Prostate Cancer Seen and examined. vitals, labs, medications, chart reviewed.; 24hour events reviewed; nursing and respiratory care staff consulted; no adverse overnight events reported to me; Objective Vital Signs - 12hr 06/14/18 06/14/18 06/14/18 21:54 21:55 23:17 Temperature 98.3 F Pulse Rate 76 94 H Respiratory 18 18 Rate Blood Pressure 115/73 O2 Sat by Pulse 99 100 Oximetry 06/15/18 06/15/18 04:16 08:21 Temperature 98.2 F 98.3 F Pulse Rate 87 Respiratory 18 16 Rate Blood Pressure 154/90 132/76 O2 Sat by Pulse 96 Oximetry Constitutional: no acute distress, alert, other (chronically ill looking middle aged AAM, normocephalic and atraumatic, ) Eyes: non-icteric ENT: oropharynx moist Neck: supple, no lymphadenopathy, no JVD, other (no thyromegaly) Effort: mildly labored Ascultation: Bilateral: diminished breath sounds, rhonchi (scant in bases) Percussion: Bilateral: not dull Cardiovascular: regular rate and rhythm, other (No R/M) Gastrointestinal: hypoactive bowel sounds, soft, tender (mild), other (Distended ; No palpable HSM, bilateral nephrostomy tubes,Colostomy, ZAKI drain) Integumentary: other (femoral vascath) Extremities: no cyanosis, no edema, pulses normal, no ischemia or petechiae Neurologic: normal mental status, non-focal exam, pupils equal and round, other (weak) Psychiatric: mood appropriate, affect normal CBC and BMP: 06/28/18 09:24 06/28/18 04:54 ABG, PT/INR, D-dimer: ABG POC ABG pH 7.362 (7.35-7.45) 05/31/18 09:58 POC ABG pCO2 36.4 (35-45) 05/31/18 09:58 POC ABG pO2 101 (80-105) 05/31/18 09:58 POC ABG HCO3 20.7 05/31/18 09:58 POC ABG Total CO2 22 05/31/18 09:58 POC ABG O2 Sat 98 05/31/18 09:58 PT/INR, D-dimer PT 16.3 Sec. (12.2-14.9) H 06/14/18 09:50 INR 1.24 (0.87-1.13) H 06/14/18 09:50 Abnormal lab findings: Abnormal Labs 05/13/18 05/13/18 05/13/18 04:27 04:27 19:39 WBC RBC 3.13 L Hgb 9.4 L Hct 26.8 L MCHC 35 H RDW Plt Count Lymph % (Auto) [place] % (Auto) 9.6 H Lymph # [place] # Seg Neutrophils % Seg Neuts % (Manual) Lymphocytes % (Manual) Seg Neutrophils # Seg Neutrophils # Man Lymphocytes # (Manual) PT INR APTT POC ABG pH POC ABG pCO2 POC ABG pO2 Sodium 132 L Potassium 5.5 H Chloride 94.1 L Carbon Dioxide 19 L BUN 72 H Creatinine 14.4 H Glucose POC Glucose Lactic Acid Calcium Phosphorus Magnesium Iron TIBC AST ALT Alkaline Phosphatase Lactate Dehydrogenase Total Creatine Kinase C-Reactive Protein Total Protein Albumin 2.8 L CA 19-9 Antigen Folate PTH Intact Urine WBC (Auto) Urine Creatinine 66.0 H Urine Chloride 27.8 L Urine Total Protein 24 H Fluid Glucose Fluid Total Protein Vancomycin Trough Miscellaneous Test Crossmatch 05/13/18 05/14/18 05/14/18 20:00 05:05 05:05 WBC RBC Hgb Hct MCHC RDW Plt Count Lymph % (Auto) [place] % (Auto) Lymph # [place] # Seg Neutrophils % Seg Neuts % (Manual) Lymphocytes % (Manual) Seg Neutrophils # Seg Neutrophils # Man Lymphocytes # (Manual) PT INR APTT POC ABG pH POC ABG pCO2 POC ABG pO2 Sodium 132 L 131 L Potassium 5.2 H 5.8 H Chloride 93.0 L 95.6 L Carbon Dioxide 19 L 20 L BUN 74 H 81 H Creatinine 15.0 H 16.6 H Glucose 134 H 127 H POC Glucose Lactic Acid Calcium 8.2 L 7.9 L Phosphorus 6.30 H Magnesium Iron TIBC AST ALT Alkaline Phosphatase Lactate Dehydrogenase Total Creatine Kinase 236 H C-Reactive Protein Total Protein Albumin CA 19-9 Antigen Folate PTH Intact 65.37 H Urine WBC (Auto) Urine Creatinine Urine Chloride Urine Total Protein Fluid Glucose Fluid Total Protein Vancomycin Trough Miscellaneous Test Crossmatch 05/14/18 05/14/18 05/14/18 09:28 10:56 13:29 WBC RBC Hgb Hct MCHC RDW Plt Count Lymph % (Auto) [place] % (Auto) Lymph # [place] # Seg Neutrophils % Seg Neuts % (Manual) Lymphocytes % (Manual) Seg Neutrophils # Seg Neutrophils # Man Lymphocytes # (Manual) PT INR APTT 38.2 H POC ABG pH POC ABG pCO2 POC ABG pO2 Sodium Potassium Chloride Carbon Dioxide BUN Creatinine Glucose POC Glucose 127 H 126 H Lactic Acid Calcium Phosphorus Magnesium Iron TIBC AST ALT Alkaline Phosphatase Lactate Dehydrogenase Total Creatine Kinase C-Reactive Protein Total Protein Albumin CA 19-9 Antigen Folate PTH Intact Urine WBC (Auto) Urine Creatinine Urine Chloride Urine Total Protein Fluid Glucose Fluid Total Protein Vancomycin Trough Miscellaneous Test Crossmatch 05/15/18 05/15/18 05/16/18 08:06 08:06 07:02 WBC RBC 2.84 L 2.74 L Hgb 8.5 L 8.5 L Hct 24.2 L 23.5 L MCHC 35 H 36 H RDW Plt Count Lymph % (Auto) [place] % (Auto) 10.4 H 11.0 H Lymph # 1.1 L [place] # 0.9 H Seg Neutrophils % 72.6 H Seg Neuts % (Manual) Lymphocytes % (Manual) Seg Neutrophils # Seg Neutrophils # Man Lymphocytes # (Manual) PT INR APTT POC ABG pH POC ABG pCO2 POC ABG pO2 Sodium Potassium Chloride Carbon Dioxide 19 L BUN 66 H Creatinine 12.0 H Glucose 115 H POC Glucose Lactic Acid Calcium 8.1 L Phosphorus Magnesium Iron TIBC AST ALT Alkaline Phosphatase Lactate Dehydrogenase Total Creatine Kinase C-Reactive Protein Total Protein Albumin CA 19-9 Antigen Folate PTH Intact Urine WBC (Auto) Urine Creatinine Urine Chloride Urine Total Protein Fluid Glucose Fluid Total Protein Vancomycin Trough Miscellaneous Test Crossmatch 05/16/18 05/16/18 05/17/18 07:02 07:02 05:08 WBC RBC 2.78 L Hgb 8.2 L Hct 23.9 L MCHC RDW Plt Count Lymph % (Auto) [place] % (Auto) 13.9 H Lymph # [place] # 0.9 H Seg Neutrophils % Seg Neuts % (Manual) Lymphocytes % (Manual) Seg Neutrophils # Seg Neutrophils # Man Lymphocytes # (Manual) PT INR APTT POC ABG pH POC ABG pCO2 POC ABG pO2 Sodium Potassium Chloride Carbon Dioxide BUN 28 H Creatinine 2.4 H D Glucose POC Glucose Lactic Acid Calcium 8.3 L Phosphorus Magnesium 1.50 L Iron 24 L TIBC 160 L AST ALT Alkaline Phosphatase Lactate Dehydrogenase Total Creatine Kinase C-Reactive Protein Total Protein Albumin CA 19-9 Antigen Folate 5.39 L PTH Intact Urine WBC (Auto) Urine Creatinine Urine Chloride Urine Total Protein Fluid Glucose Fluid Total Protein Vancomycin Trough Miscellaneous Test Crossmatch 05/17/18 05/18/18 05/18/18 05:08 05:57 05:57 WBC RBC 2.79 L Hgb 8.3 L Hct 24.0 L MCHC 35 H RDW Plt Count Lymph % (Auto) [place] % (Auto) 11.8 H Lymph # [place] # 0.9 H Seg Neutrophils % Seg Neuts % (Manual) Lymphocytes % (Manual) Seg Neutrophils # Seg Neutrophils # Man Lymphocytes # (Manual) PT INR APTT POC ABG pH POC ABG pCO2 POC ABG pO2 Sodium Potassium Chloride Carbon Dioxide BUN Creatinine Glucose POC Glucose Lactic Acid Calcium 7.7 L 8.0 L Phosphorus Magnesium 1.60 L Iron TIBC AST ALT Alkaline Phosphatase Lactate Dehydrogenase Total Creatine Kinase C-Reactive Protein Total Protein Albumin CA 19-9 Antigen Folate PTH Intact Urine WBC (Auto) Urine Creatinine Urine Chloride Urine Total Protein Fluid Glucose Fluid Total Protein Vancomycin Trough Miscellaneous Test Crossmatch 05/19/18 05/19/18 05/20/18 05:33 05:33 05:38 WBC RBC 2.95 L Hgb 8.8 L Hct 25.8 L MCHC RDW Plt Count Lymph % (Auto) 10.1 L [place] % (Auto) Lymph # 1.1 L [place] # Seg Neutrophils % 85.2 H Seg Neuts % (Manual) Lymphocytes % (Manual) Seg Neutrophils # 9.0 H Seg Neutrophils # Man Lymphocytes # (Manual) PT INR APTT POC ABG pH POC ABG pCO2 POC ABG pO2 Sodium 135 L Potassium Chloride Carbon Dioxide BUN Creatinine Glucose 132 H POC Glucose Lactic Acid Calcium 7.8 L 8.3 L Phosphorus Magnesium 1.40 L Iron TIBC AST ALT Alkaline Phosphatase Lactate Dehydrogenase Total Creatine Kinase C-Reactive Protein Total Protein Albumin CA 19-9 Antigen Folate PTH Intact Urine WBC (Auto) Urine Creatinine Urine Chloride Urine Total Protein Fluid Glucose Fluid Total Protein Vancomycin Trough Miscellaneous Test Crossmatch 05/21/18 05/21/18 05/22/18 04:46 15:30 06:49 WBC 20.0 H RBC 2.70 L Hgb 7.8 L Hct 23.3 L MCHC RDW Plt Count Lymph % (Auto) [place] % (Auto) Lymph # [place] # Seg Neutrophils % Seg Neuts % (Manual) 85.0 H Lymphocytes % (Manual) 4.0 L Seg Neutrophils # Seg Neutrophils # Man 17.0 H Lymphocytes # (Manual) 0.8 L PT INR APTT POC ABG pH POC ABG pCO2 POC ABG pO2 Sodium 135 L Potassium 3.5 L Chloride Carbon Dioxide 21 L BUN 22 H Creatinine Glucose POC Glucose Lactic Acid Calcium 8.1 L Phosphorus Magnesium Iron TIBC AST ALT Alkaline Phosphatase Lactate Dehydrogenase Total Creatine Kinase C-Reactive Protein Total Protein Albumin CA 19-9 Antigen Folate PTH Intact Urine WBC (Auto) 28.0 H Urine Creatinine Urine Chloride Urine Total Protein Fluid Glucose Fluid Total Protein Vancomycin Trough Miscellaneous Test Crossmatch 05/22/18 05/22/18 05/23/18 06:49 11:23 09:03 WBC RBC Hgb Hct MCHC RDW Plt Count Lymph % (Auto) [place] % (Auto) Lymph # [place] # Seg Neutrophils % Seg Neuts % (Manual) Lymphocytes % (Manual) Seg Neutrophils # Seg Neutrophils # Man Lymphocytes # (Manual) PT INR APTT POC ABG pH POC ABG pCO2 POC ABG pO2 Sodium 134 L Potassium 3.5 L Chloride Carbon Dioxide 21 L BUN 35 H 36 H Creatinine 1.7 H Glucose 107 H POC Glucose Lactic Acid Calcium 7.9 L Phosphorus Magnesium 2.50 H Iron TIBC AST ALT Alkaline Phosphatase Lactate Dehydrogenase Total Creatine Kinase C-Reactive Protein Total Protein Albumin CA 19-9 Antigen Folate PTH Intact Urine WBC (Auto) Urine Creatinine Urine Chloride Urine Total Protein Fluid Glucose Fluid Total Protein Vancomycin Trough Miscellaneous Test Crossmatch See Detail 05/23/18 05/23/18 05/23/18 09:03 09:03 17:34 WBC 26.3 H RBC 3.57 L Hgb 10.4 L Hct 31.1 L D MCHC RDW Plt Count Lymph % (Auto) [place] % (Auto) Lymph # [place] # Seg Neutrophils % Seg Neuts % (Manual) Lymphocytes % (Manual) Seg Neutrophils # Seg Neutrophils # Man Lymphocytes # (Manual) PT 18.3 H INR 1.43 H APTT 40.0 H POC ABG pH POC ABG pCO2 POC ABG pO2 Sodium Potassium Chloride Carbon Dioxide BUN Creatinine Glucose POC Glucose 108 H Lactic Acid Calcium Phosphorus Magnesium Iron TIBC AST ALT Alkaline Phosphatase Lactate Dehydrogenase Total Creatine Kinase C-Reactive Protein Total Protein Albumin CA 19-9 Antigen Folate PTH Intact Urine WBC (Auto) Urine Creatinine Urine Chloride Urine Total Protein Fluid Glucose Fluid Total Protein Vancomycin Trough Miscellaneous Test Crossmatch 05/23/18 05/24/18 05/24/18 21:14 04:43 08:04 WBC RBC Hgb Hct MCHC RDW Plt Count Lymph % (Auto) [place] % (Auto) Lymph # [place] # Seg Neutrophils % Seg Neuts % (Manual) Lymphocytes % (Manual) Seg Neutrophils # Seg Neutrophils # Man Lymphocytes # (Manual) PT INR APTT POC ABG pH POC ABG pCO2 POC ABG pO2 Sodium 146 H Potassium Chloride 108.6 H Carbon Dioxide BUN 33 H Creatinine Glucose 109 H POC Glucose 110 H 106 H Lactic Acid Calcium 8.3 L Phosphorus Magnesium 2.50 H Iron TIBC AST ALT Alkaline Phosphatase Lactate Dehydrogenase Total Creatine Kinase C-Reactive Protein Total Protein Albumin CA 19-9 Antigen Folate PTH Intact Urine WBC (Auto) Urine Creatinine Urine Chloride Urine Total Protein Fluid Glucose Fluid Total Protein Vancomycin Trough Miscellaneous Test Crossmatch 05/25/18 05/25/18 05/25/18 05:42 05:49 19:50 WBC RBC Hgb Hct MCHC RDW Plt Count Lymph % (Auto) [place] % (Auto) Lymph # [place] # Seg Neutrophils % Seg Neuts % (Manual) Lymphocytes % (Manual) Seg Neutrophils # Seg Neutrophils # Man Lymphocytes # (Manual) PT INR APTT POC ABG pH POC ABG pCO2 POC ABG pO2 Sodium 150 H Potassium Chloride 112.5 H Carbon Dioxide BUN 34 H Creatinine Glucose 102 H POC Glucose 107 H Lactic Acid Calcium Phosphorus Magnesium Iron TIBC AST ALT Alkaline Phosphatase Lactate Dehydrogenase Total Creatine Kinase C-Reactive Protein 34.50 H Total Protein Albumin CA 19-9 Antigen Folate PTH Intact Urine WBC (Auto) Urine Creatinine Urine Chloride Urine Total Protein Fluid Glucose Fluid Total Protein Vancomycin Trough Miscellaneous Test Crossmatch 05/25/18 05/25/18 05/25/18 19:50 21:05 22:46 WBC RBC Hgb Hct MCHC RDW Plt Count Lymph % (Auto) [place] % (Auto) Lymph # [place] # Seg Neutrophils % Seg Neuts % (Manual) Lymphocytes % (Manual) Seg Neutrophils # Seg Neutrophils # Man Lymphocytes # (Manual) PT INR APTT POC ABG pH 7.483 H POC ABG pCO2 24.0 L POC ABG pO2 72 L Sodium Potassium Chloride Carbon Dioxide BUN Creatinine Glucose POC Glucose Lactic Acid 5.90 H* Calcium Phosphorus Magnesium Iron TIBC AST ALT Alkaline Phosphatase Lactate Dehydrogenase Total Creatine Kinase C-Reactive Protein Total Protein Albumin CA 19-9 Antigen Folate PTH Intact Urine WBC (Auto) Urine Creatinine Urine Chloride Urine Total Protein Fluid Glucose Fluid Total Protein Vancomycin Trough 25.1 H Miscellaneous Test Crossmatch 05/25/18 05/26/18 05/26/18 22:46 00:21 00:51 WBC RBC Hgb Hct MCHC RDW Plt Count Lymph % (Auto) [place] % (Auto) Lymph # [place] # Seg Neutrophils % Seg Neuts % (Manual) Lymphocytes % (Manual) Seg Neutrophils # Seg Neutrophils # Man Lymphocytes # (Manual) PT INR APTT POC ABG pH POC ABG pCO2 POC ABG pO2 Sodium Potassium Chloride Carbon Dioxide BUN Creatinine Glucose POC Glucose 133 H Lactic Acid 8.10 H* 6.20 H* Calcium Phosphorus Magnesium Iron TIBC AST ALT Alkaline Phosphatase Lactate Dehydrogenase Total Creatine Kinase C-Reactive Protein Total Protein Albumin CA 19-9 Antigen Folate PTH Intact Urine WBC (Auto) Urine Creatinine Urine Chloride Urine Total Protein Fluid Glucose Fluid Total Protein Vancomycin Trough Miscellaneous Test Crossmatch 05/26/18 05/26/18 05/26/18 01:13 02:24 02:24 WBC 18.7 H RBC Hgb 11.6 L Hct MCHC RDW Plt Count Lymph % (Auto) [place] % (Auto) Lymph # [place] # Seg Neutrophils % Seg Neuts % (Manual) Lymphocytes % (Manual) Seg Neutrophils # Seg Neutrophils # Man Lymphocytes # (Manual) PT INR APTT POC ABG pH POC ABG pCO2 POC ABG pO2 Sodium 147 H Potassium 6.2 H* D Chloride 111.9 H Carbon Dioxide 19 L BUN 80 H Creatinine 5.1 H D Glucose 112 H POC Glucose Lactic Acid 5.20 H* Calcium 6.7 L D Phosphorus Magnesium Iron TIBC AST ALT Alkaline Phosphatase Lactate Dehydrogenase Total Creatine Kinase C-Reactive Protein Total Protein Albumin CA 19-9 Antigen Folate PTH Intact Urine WBC (Auto) Urine Creatinine Urine Chloride Urine Total Protein Fluid Glucose Fluid Total Protein Vancomycin Trough Miscellaneous Test Crossmatch 05/26/18 05/26/18 05/26/18 04:20 04:20 05:39 WBC RBC Hgb Hct MCHC RDW Plt Count Lymph % (Auto) [place] % (Auto) Lymph # [place] # Seg Neutrophils % Seg Neuts % (Manual) Lymphocytes % (Manual) Seg Neutrophils # Seg Neutrophils # Man Lymphocytes # (Manual) PT INR APTT POC ABG pH POC ABG pCO2 POC ABG pO2 Sodium 150 H Potassium Chloride 110.0 H Carbon Dioxide 19 L BUN 66 H Creatinine Glucose 166 H POC Glucose 187 H Lactic Acid 5.10 H* Calcium 6.9 L Phosphorus 6.70 H D Magnesium Iron TIBC AST ALT Alkaline Phosphatase Lactate Dehydrogenase Total Creatine Kinase C-Reactive Protein Total Protein Albumin CA 19-9 Antigen Folate PTH Intact Urine WBC (Auto) Urine Creatinine Urine Chloride Urine Total Protein Fluid Glucose Fluid Total Protein Vancomycin Trough Miscellaneous Test Crossmatch 05/26/18 05/26/18 05/26/18 06:02 07:29 11:00 WBC RBC Hgb Hct MCHC RDW Plt Count Lymph % (Auto) [place] % (Auto) Lymph # [place] # Seg Neutrophils % Seg Neuts % (Manual) Lymphocytes % (Manual) Seg Neutrophils # Seg Neutrophils # Man Lymphocytes # (Manual) PT INR APTT POC ABG pH POC ABG pCO2 28.8 L POC ABG pO2 Sodium Potassium Chloride Carbon Dioxide BUN Creatinine Glucose POC Glucose Lactic Acid 4.80 H* 3.80 H* Calcium Phosphorus Magnesium Iron TIBC AST ALT Alkaline Phosphatase Lactate Dehydrogenase Total Creatine Kinase C-Reactive Protein Total Protein Albumin CA 19-9 Antigen Folate PTH Intact Urine WBC (Auto) Urine Creatinine Urine Chloride Urine Total Protein Fluid Glucose Fluid Total Protein Vancomycin Trough Miscellaneous Test Crossmatch 05/26/18 05/26/18 05/26/18 11:01 12:28 18:00 WBC RBC Hgb Hct MCHC RDW Plt Count Lymph % (Auto) [place] % (Auto) Lymph # [place] # Seg Neutrophils % Seg Neuts % (Manual) Lymphocytes % (Manual) Seg Neutrophils # Seg Neutrophils # Man Lymphocytes # (Manual) PT INR APTT POC ABG pH POC ABG pCO2 POC ABG pO2 Sodium 150 H 151 H Potassium 5.3 H D 6.1 H* Chloride 110.3 H 117.0 H Carbon Dioxide 21 L 20 L BUN 75 H 77 H Creatinine 4.3 H D 4.6 H Glucose 161 H POC Glucose 114 H Lactic Acid Calcium 7.5 L 6.7 L Phosphorus Magnesium Iron TIBC AST 1041 H ALT 406 H Alkaline Phosphatase 281 H Lactate Dehydrogenase Total Creatine Kinase C-Reactive Protein Total Protein 4.4 L Albumin 1.3 L CA 19-9 Antigen Folate PTH Intact Urine WBC (Auto) Urine Creatinine Urine Chloride Urine Total Protein Fluid Glucose Fluid Total Protein Vancomycin Trough Miscellaneous Test Crossmatch 05/26/18 05/26/18 05/27/18 18:02 19:17 01:01 WBC 21.7 H RBC 2.70 L Hgb 7.8 L D Hct 24.6 L D MCHC RDW 15.3 H Plt Count Lymph % (Auto) [place] % (Auto) Lymph # [place] # Seg Neutrophils % Seg Neuts % (Manual) 94.0 H Lymphocytes % (Manual) 3.0 L Seg Neutrophils # Seg Neutrophils # Man 20.4 H Lymphocytes # (Manual) 0.7 L PT INR APTT POC ABG pH 7.159 L 7.205 L POC ABG pCO2 54.5 H 53.0 H POC ABG pO2 252 H Sodium Potassium Chloride Carbon Dioxide BUN Creatinine Glucose POC Glucose Lactic Acid Calcium Phosphorus Magnesium Iron TIBC AST ALT Alkaline Phosphatase Lactate Dehydrogenase Total Creatine Kinase C-Reactive Protein Total Protein Albumin CA 19-9 Antigen Folate PTH Intact Urine WBC (Auto) Urine Creatinine Urine Chloride Urine Total Protein Fluid Glucose Fluid Total Protein Vancomycin Trough Miscellaneous Test Crossmatch 05/27/18 05/27/18 05/27/18 05:15 05:15 06:11 WBC 24.9 H RBC 2.86 L Hgb 8.1 L Hct 25.9 L MCHC RDW 15.5 H Plt Count Lymph % (Auto) [place] % (Auto) Lymph # [place] # Seg Neutrophils % Seg Neuts % (Manual) Lymphocytes % (Manual) Seg Neutrophils # Seg Neutrophils # Man Lymphocytes # (Manual) PT INR APTT POC ABG pH 7.265 L POC ABG pCO2 46.2 H POC ABG pO2 111 H Sodium 149 H Potassium 6.9 H* Chloride 113.5 H Carbon Dioxide BUN 89 H Creatinine 5.2 H Glucose 118 H POC Glucose Lactic Acid Calcium 7.0 L Phosphorus 9.70 H D Magnesium Iron TIBC AST 876 H ALT 408 H Alkaline Phosphatase Lactate Dehydrogenase Total Creatine Kinase C-Reactive Protein Total Protein 5.2 L Albumin 1.5 L CA 19-9 Antigen Folate PTH Intact Urine WBC (Auto) Urine Creatinine Urine Chloride Urine Total Protein Fluid Glucose Fluid Total Protein Vancomycin Trough Miscellaneous Test Crossmatch 05/27/18 05/27/18 05/27/18 08:48 10:22 10:22 WBC RBC Hgb Hct MCHC RDW Plt Count Lymph % (Auto) [place] % (Auto) Lymph # [place] # Seg Neutrophils % Seg Neuts % (Manual) Lymphocytes % (Manual) Seg Neutrophils # Seg Neutrophils # Man Lymphocytes # (Manual) PT INR APTT POC ABG pH POC ABG pCO2 POC ABG pO2 Sodium 146 H Potassium 6.1 H* Chloride 108.2 H Carbon Dioxide 21 L BUN 88 H Creatinine 5.6 H Glucose 163 H POC Glucose 164 H Lactic Acid Calcium 6.7 L Phosphorus Magnesium Iron TIBC AST ALT Alkaline Phosphatase Lactate Dehydrogenase Total Creatine Kinase C-Reactive Protein 40.70 H Total Protein Albumin CA 19-9 Antigen Folate PTH Intact Urine WBC (Auto) Urine Creatinine Urine Chloride Urine Total Protein Fluid Glucose Fluid Total Protein Vancomycin Trough Miscellaneous Test Crossmatch 05/27/18 05/27/18 05/27/18 13:02 17:39 23:27 WBC RBC Hgb Hct MCHC RDW Plt Count Lymph % (Auto) [place] % (Auto) Lymph # [place] # Seg Neutrophils % Seg Neuts % (Manual) Lymphocytes % (Manual) Seg Neutrophils # Seg Neutrophils # Man Lymphocytes # (Manual) PT INR APTT POC ABG pH POC ABG pCO2 POC ABG pO2 Sodium Potassium Chloride Carbon Dioxide BUN Creatinine Glucose POC Glucose 59 L 132 H Lactic Acid Calcium Phosphorus Magnesium Iron TIBC AST ALT Alkaline Phosphatase Lactate Dehydrogenase Total Creatine Kinase C-Reactive Protein Total Protein Albumin CA 19-9 Antigen Folate PTH Intact Urine WBC (Auto) Urine Creatinine Urine Chloride Urine Total Protein Fluid Glucose Fluid Total Protein Vancomycin Trough Miscellaneous Test Flexitest 1 H Crossmatch 05/27/18 05/28/18 05/28/18 Unknown 04:32 05:00 WBC RBC Hgb Hct MCHC RDW Plt Count Lymph % (Auto) [place] % (Auto) Lymph # [place] # Seg Neutrophils % Seg Neuts % (Manual) Lymphocytes % (Manual) Seg Neutrophils # Seg Neutrophils # Man Lymphocytes # (Manual) PT INR APTT POC ABG pH POC ABG pCO2 POC ABG pO2 134 H Sodium Potassium Chloride Carbon Dioxide BUN 69 H Creatinine 4.4 H Glucose 118 H POC Glucose Lactic Acid Calcium 8.0 L D Phosphorus 6.80 H D Magnesium Iron TIBC AST ALT Alkaline Phosphatase Lactate Dehydrogenase Total Creatine Kinase C-Reactive Protein Total Protein Albumin CA 19-9 Antigen Folate PTH Intact Urine WBC (Auto) 120.0 H Urine Creatinine Urine Chloride Urine Total Protein Fluid Glucose Fluid Total Protein Vancomycin Trough Miscellaneous Test Crossmatch 05/28/18 05/28/18 05/28/18 05:00 05:27 13:04 WBC 26.5 H RBC 2.69 L Hgb 7.7 L Hct 23.6 L MCHC RDW Plt Count Lymph % (Auto) [place] % (Auto) Lymph # [place] # Seg Neutrophils % Seg Neuts % (Manual) 96.0 H Lymphocytes % (Manual) 0 L Seg Neutrophils # Seg Neutrophils # Man 25.4 H Lymphocytes # (Manual) 0.0 L PT INR APTT POC ABG pH POC ABG pCO2 POC ABG pO2 Sodium Potassium Chloride Carbon Dioxide BUN Creatinine Glucose POC Glucose 128 H 155 H Lactic Acid Calcium Phosphorus Magnesium Iron TIBC AST ALT Alkaline Phosphatase Lactate Dehydrogenase Total Creatine Kinase C-Reactive Protein Total Protein Albumin CA 19-9 Antigen Folate PTH Intact Urine WBC (Auto) Urine Creatinine Urine Chloride Urine Total Protein Fluid Glucose Fluid Total Protein Vancomycin Trough Miscellaneous Test Crossmatch 05/28/18 05/29/18 05/29/18 17:56 03:35 04:00 WBC RBC Hgb Hct MCHC RDW Plt Count Lymph % (Auto) [place] % (Auto) Lymph # [place] # Seg Neutrophils % Seg Neuts % (Manual) Lymphocytes % (Manual) Seg Neutrophils # Seg Neutrophils # Man Lymphocytes # (Manual) PT INR APTT POC ABG pH 7.471 H POC ABG pCO2 POC ABG pO2 78 L Sodium Potassium Chloride Carbon Dioxide BUN 50 H Creatinine 3.9 H Glucose POC Glucose 110 H Lactic Acid Calcium 7.7 L Phosphorus Magnesium 1.50 L Iron TIBC AST 218 H ALT 204 H Alkaline Phosphatase Lactate Dehydrogenase Total Creatine Kinase C-Reactive Protein Total Protein 5.4 L Albumin 1.6 L CA 19-9 Antigen Folate PTH Intact Urine WBC (Auto) Urine Creatinine Urine Chloride Urine Total Protein Fluid Glucose Fluid Total Protein Vancomycin Trough Miscellaneous Test Crossmatch 05/29/18 05/29/18 05/30/18 11:51 23:56 04:54 WBC RBC Hgb Hct MCHC RDW Plt Count Lymph % (Auto) [place] % (Auto) Lymph # [place] # Seg Neutrophils % Seg Neuts % (Manual) Lymphocytes % (Manual) Seg Neutrophils # Seg Neutrophils # Man Lymphocytes # (Manual) PT INR APTT POC ABG pH POC ABG pCO2 POC ABG pO2 Sodium Potassium Chloride Carbon Dioxide BUN Creatinine Glucose POC Glucose 131 H 119 H 115 H Lactic Acid Calcium Phosphorus Magnesium Iron TIBC AST ALT Alkaline Phosphatase Lactate Dehydrogenase Total Creatine Kinase C-Reactive Protein Total Protein Albumin CA 19-9 Antigen Folate PTH Intact Urine WBC (Auto) Urine Creatinine Urine Chloride Urine Total Protein Fluid Glucose Fluid Total Protein Vancomycin Trough Miscellaneous Test Crossmatch 05/30/18 05/30/18 05/30/18 05:07 05:15 05:15 WBC 16.2 H RBC 2.53 L Hgb 7.4 L Hct 21.9 L MCHC RDW Plt Count Lymph % (Auto) [place] % (Auto) Lymph # [place] # Seg Neutrophils % Seg Neuts % (Manual) Lymphocytes % (Manual) Seg Neutrophils # Seg Neutrophils # Man Lymphocytes # (Manual) PT INR APTT POC ABG pH POC ABG pCO2 34.5 L POC ABG pO2 133 H Sodium 135 L Potassium Chloride 97.5 L Carbon Dioxide BUN 69 H Creatinine 5.4 H Glucose 105 H POC Glucose Lactic Acid Calcium 7.5 L Phosphorus 5.30 H D Magnesium Iron TIBC AST ALT Alkaline Phosphatase Lactate Dehydrogenase Total Creatine Kinase C-Reactive Protein Total Protein Albumin CA 19-9 Antigen Folate PTH Intact Urine WBC (Auto) Urine Creatinine Urine Chloride Urine Total Protein Fluid Glucose Fluid Total Protein Vancomycin Trough Miscellaneous Test Crossmatch 05/30/18 05/30/18 05/31/18 12:13 17:10 04:50 WBC 18.7 H RBC 2.86 L Hgb 8.2 L Hct 24.8 L MCHC RDW Plt Count Lymph % (Auto) [place] % (Auto) Lymph # [place] # Seg Neutrophils % Seg Neuts % (Manual) 91.0 H Lymphocytes % (Manual) 2.0 L Seg Neutrophils # Seg Neutrophils # Man 17.0 H Lymphocytes # (Manual) 0.4 L PT INR APTT POC ABG pH POC ABG pCO2 POC ABG pO2 Sodium Potassium Chloride Carbon Dioxide BUN Creatinine Glucose POC Glucose 132 H 122 H Lactic Acid Calcium Phosphorus Magnesium Iron TIBC AST ALT Alkaline Phosphatase Lactate Dehydrogenase Total Creatine Kinase C-Reactive Protein Total Protein Albumin CA 19-9 Antigen Folate PTH Intact Urine WBC (Auto) Urine Creatinine Urine Chloride Urine Total Protein Fluid Glucose Fluid Total Protein Vancomycin Trough Miscellaneous Test Crossmatch 05/31/18 05/31/18 05/31/18 04:50 05:45 11:37 WBC RBC Hgb Hct MCHC RDW Plt Count Lymph % (Auto) [place] % (Auto) Lymph # [place] # Seg Neutrophils % Seg Neuts % (Manual) Lymphocytes % (Manual) Seg Neutrophils # Seg Neutrophils # Man Lymphocytes # (Manual) PT INR APTT POC ABG pH POC ABG pCO2 POC ABG pO2 Sodium 132 L Potassium Chloride 92.4 L Carbon Dioxide BUN 77 H Creatinine 5.9 H Glucose POC Glucose 111 H 136 H Lactic Acid Calcium 7.3 L Phosphorus 6.40 H D Magnesium Iron TIBC AST ALT Alkaline Phosphatase Lactate Dehydrogenase Total Creatine Kinase C-Reactive Protein Total Protein Albumin CA 19-9 Antigen Folate PTH Intact Urine WBC (Auto) Urine Creatinine Urine Chloride Urine Total Protein Fluid Glucose Fluid Total Protein Vancomycin Trough Miscellaneous Test Crossmatch 05/31/18 06/01/18 06/01/18 17:52 00:09 04:00 WBC RBC Hgb Hct MCHC RDW Plt Count Lymph % (Auto) [place] % (Auto) Lymph # [place] # Seg Neutrophils % Seg Neuts % (Manual) Lymphocytes % (Manual) Seg Neutrophils # Seg Neutrophils # Man Lymphocytes # (Manual) PT INR APTT POC ABG pH POC ABG pCO2 POC ABG pO2 Sodium Potassium Chloride 97.5 L Carbon Dioxide BUN 49 H Creatinine 4.2 H Glucose 104 H POC Glucose 115 H 114 H Lactic Acid Calcium 7.3 L Phosphorus 4.70 H D Magnesium Iron TIBC AST ALT Alkaline Phosphatase Lactate Dehydrogenase Total Creatine Kinase C-Reactive Protein Total Protein Albumin CA 19-9 Antigen Folate PTH Intact Urine WBC (Auto) Urine Creatinine Urine Chloride Urine Total Protein Fluid Glucose Fluid Total Protein Vancomycin Trough Miscellaneous Test Crossmatch 06/01/18 06/01/18 06/02/18 11:10 17:56 00:15 WBC RBC Hgb Hct MCHC RDW Plt Count Lymph % (Auto) [place] % (Auto) Lymph # [place] # Seg Neutrophils % Seg Neuts % (Manual) Lymphocytes % (Manual) Seg Neutrophils # Seg Neutrophils # Man Lymphocytes # (Manual) PT INR APTT POC ABG pH POC ABG pCO2 POC ABG pO2 Sodium Potassium Chloride Carbon Dioxide BUN Creatinine Glucose POC Glucose 123 H 126 H 135 H Lactic Acid Calcium Phosphorus Magnesium Iron TIBC AST ALT Alkaline Phosphatase Lactate Dehydrogenase Total Creatine Kinase C-Reactive Protein Total Protein Albumin CA 19-9 Antigen Folate PTH Intact Urine WBC (Auto) Urine Creatinine Urine Chloride Urine Total Protein Fluid Glucose Fluid Total Protein Vancomycin Trough Miscellaneous Test Crossmatch 06/02/18 06/02/18 06/02/18 05:23 12:42 13:05 WBC RBC Hgb Hct MCHC RDW Plt Count Lymph % (Auto) [place] % (Auto) Lymph # [place] # Seg Neutrophils % Seg Neuts % (Manual) Lymphocytes % (Manual) Seg Neutrophils # Seg Neutrophils # Man Lymphocytes # (Manual) PT 17.1 H INR 1.34 H APTT POC ABG pH POC ABG pCO2 POC ABG pO2 Sodium Potassium Chloride Carbon Dioxide BUN Creatinine Glucose POC Glucose 135 H 142 H Lactic Acid Calcium Phosphorus Magnesium Iron TIBC AST ALT Alkaline Phosphatase Lactate Dehydrogenase Total Creatine Kinase C-Reactive Protein Total Protein Albumin CA 19-9 Antigen Folate PTH Intact Urine WBC (Auto) Urine Creatinine Urine Chloride Urine Total Protein Fluid Glucose Fluid Total Protein Vancomycin Trough Miscellaneous Test Crossmatch 06/02/18 06/02/18 06/03/18 Unknown Unknown 00:54 WBC 20.8 H RBC 2.67 L Hgb 7.7 L Hct 23.0 L MCHC RDW Plt Count 500 H Lymph % (Auto) [place] % (Auto) Lymph # [place] # Seg Neutrophils % Seg Neuts % (Manual) Lymphocytes % (Manual) Seg Neutrophils # Seg Neutrophils # Man Lymphocytes # (Manual) PT INR APTT POC ABG pH POC ABG pCO2 POC ABG pO2 Sodium 136 L Potassium 3.5 L Chloride 96.9 L Carbon Dioxide BUN 62 H Creatinine 4.9 H Glucose 133 H POC Glucose 125 H Lactic Acid Calcium 7.2 L Phosphorus 5.00 H Magnesium Iron TIBC AST 46 H ALT 66 H Alkaline Phosphatase Lactate Dehydrogenase Total Creatine Kinase C-Reactive Protein Total Protein 5.7 L Albumin 1.5 L CA 19-9 Antigen Folate PTH Intact Urine WBC (Auto) Urine Creatinine Urine Chloride Urine Total Protein Fluid Glucose Fluid Total Protein Vancomycin Trough Miscellaneous Test Crossmatch 06/03/18 06/03/18 06/03/18 03:31 09:18 09:18 WBC RBC Hgb Hct MCHC RDW Plt Count Lymph % (Auto) [place] % (Auto) Lymph # [place] # Seg Neutrophils % Seg Neuts % (Manual) Lymphocytes % (Manual) Seg Neutrophils # Seg Neutrophils # Man Lymphocytes # (Manual) PT 17.1 H INR 1.34 H APTT POC ABG pH POC ABG pCO2 POC ABG pO2 Sodium 136 L Potassium Chloride Carbon Dioxide BUN 41 H Creatinine 3.4 H Glucose 129 H POC Glucose Lactic Acid Calcium 7.4 L Phosphorus Magnesium Iron TIBC AST ALT Alkaline Phosphatase Lactate Dehydrogenase Total Creatine Kinase C-Reactive Protein 11.10 H Total Protein Albumin CA 19-9 Antigen Folate PTH Intact Urine WBC (Auto) Urine Creatinine Urine Chloride Urine Total Protein Fluid Glucose Fluid Total Protein Vancomycin Trough Miscellaneous Test Crossmatch 06/03/18 06/03/18 06/03/18 16:07 21:18 Unknown WBC RBC Hgb Hct MCHC RDW Plt Count Lymph % (Auto) [place] % (Auto) Lymph # [place] # Seg Neutrophils % Seg Neuts % (Manual) Lymphocytes % (Manual) Seg Neutrophils # Seg Neutrophils # Man Lymphocytes # (Manual) PT INR APTT POC ABG pH POC ABG pCO2 POC ABG pO2 Sodium Potassium Chloride Carbon Dioxide BUN Creatinine Glucose POC Glucose 144 H 128 H Lactic Acid Calcium Phosphorus Magnesium Iron TIBC AST ALT Alkaline Phosphatase Lactate Dehydrogenase Total Creatine Kinase C-Reactive Protein Total Protein Albumin CA 19-9 Antigen Folate PTH Intact Urine WBC (Auto) Urine Creatinine Urine Chloride Urine Total Protein Fluid Glucose 10 L Fluid Total Protein 3.7 L Vancomycin Trough Miscellaneous Test Crossmatch 06/04/18 06/04/18 06/04/18 04:31 06:14 11:38 WBC RBC Hgb Hct MCHC RDW Plt Count Lymph % (Auto) [place] % (Auto) Lymph # [place] # Seg Neutrophils % Seg Neuts % (Manual) Lymphocytes % (Manual) Seg Neutrophils # Seg Neutrophils # Man Lymphocytes # (Manual) PT INR APTT POC ABG pH POC ABG pCO2 POC ABG pO2 Sodium Potassium Chloride Carbon Dioxide BUN 55 H Creatinine 3.7 H Glucose 151 H POC Glucose 145 H 129 H Lactic Acid Calcium 7.8 L Phosphorus 4.60 H Magnesium Iron TIBC AST ALT Alkaline Phosphatase Lactate Dehydrogenase Total Creatine Kinase C-Reactive Protein Total Protein Albumin CA 19-9 Antigen Folate PTH Intact Urine WBC (Auto) Urine Creatinine Urine Chloride Urine Total Protein Fluid Glucose Fluid Total Protein Vancomycin Trough Miscellaneous Test Crossmatch 06/04/18 06/04/18 06/04/18 17:09 20:00 21:29 WBC RBC Hgb 8.8 L Hct 27.3 L MCHC RDW Plt Count Lymph % (Auto) [place] % (Auto) Lymph # [place] # Seg Neutrophils % Seg Neuts % (Manual) Lymphocytes % (Manual) Seg Neutrophils # Seg Neutrophils # Man Lymphocytes # (Manual) PT INR APTT POC ABG pH POC ABG pCO2 POC ABG pO2 Sodium Potassium Chloride Carbon Dioxide BUN Creatinine Glucose POC Glucose 142 H 130 H Lactic Acid Calcium Phosphorus Magnesium Iron TIBC AST ALT Alkaline Phosphatase Lactate Dehydrogenase Total Creatine Kinase C-Reactive Protein Total Protein Albumin CA 19-9 Antigen Folate PTH Intact Urine WBC (Auto) Urine Creatinine Urine Chloride Urine Total Protein Fluid Glucose Fluid Total Protein Vancomycin Trough Miscellaneous Test Crossmatch 06/05/18 06/05/18 06/05/18 06:30 07:00 07:00 WBC 19.3 H RBC 2.94 L Hgb 8.3 L Hct 25.6 L MCHC RDW 15.7 H Plt Count 568 H Lymph % (Auto) 4.7 L [place] % (Auto) Lymph # 0.9 L [place] # 1.1 H Seg Neutrophils % 88.9 H Seg Neuts % (Manual) Lymphocytes % (Manual) Seg Neutrophils # 17.2 H Seg Neutrophils # Man Lymphocytes # (Manual) PT INR APTT POC ABG pH POC ABG pCO2 POC ABG pO2 Sodium Potassium 3.4 L D Chloride Carbon Dioxide BUN 67 H Creatinine 3.6 H Glucose 145 H POC Glucose 153 H Lactic Acid Calcium 7.9 L Phosphorus 4.60 H Magnesium Iron TIBC AST ALT Alkaline Phosphatase Lactate Dehydrogenase Total Creatine Kinase C-Reactive Protein Total Protein Albumin CA 19-9 Antigen Folate PTH Intact Urine WBC (Auto) Urine Creatinine Urine Chloride Urine Total Protein Fluid Glucose Fluid Total Protein Vancomycin Trough Miscellaneous Test Crossmatch 06/05/18 06/05/18 06/06/18 12:10 16:01 06:39 WBC RBC Hgb Hct MCHC RDW Plt Count Lymph % (Auto) [place] % (Auto) Lymph # [place] # Seg Neutrophils % Seg Neuts % (Manual) Lymphocytes % (Manual) Seg Neutrophils # Seg Neutrophils # Man Lymphocytes # (Manual) PT INR APTT POC ABG pH POC ABG pCO2 POC ABG pO2 Sodium Potassium Chloride Carbon Dioxide BUN Creatinine Glucose POC Glucose 150 H 129 H 131 H Lactic Acid Calcium Phosphorus Magnesium Iron TIBC AST ALT Alkaline Phosphatase Lactate Dehydrogenase Total Creatine Kinase C-Reactive Protein Total Protein Albumin CA 19-9 Antigen Folate PTH Intact Urine WBC (Auto) Urine Creatinine Urine Chloride Urine Total Protein Fluid Glucose Fluid Total Protein Vancomycin Trough Miscellaneous Test Crossmatch 06/06/18 06/06/18 06/06/18 07:14 07:14 07:14 WBC 16.5 H RBC 2.84 L Hgb 8.1 L Hct 25.2 L MCHC RDW 16.4 H Plt Count 526 H Lymph % (Auto) 6.5 L [place] % (Auto) Lymph # 1.1 L [place] # 1.2 H Seg Neutrophils % 85.3 H Seg Neuts % (Manual) Lymphocytes % (Manual) Seg Neutrophils # 14.1 H Seg Neutrophils # Man Lymphocytes # (Manual) PT INR APTT POC ABG pH POC ABG pCO2 POC ABG pO2 Sodium Potassium Chloride 109.1 H Carbon Dioxide 21 L BUN 76 H Creatinine 3.5 H Glucose 111 H POC Glucose Lactic Acid Calcium 8.1 L Phosphorus Magnesium Iron TIBC AST ALT Alkaline Phosphatase Lactate Dehydrogenase Total Creatine Kinase C-Reactive Protein 4.70 H Total Protein Albumin CA 19-9 Antigen Folate PTH Intact Urine WBC (Auto) Urine Creatinine Urine Chloride Urine Total Protein Fluid Glucose Fluid Total Protein Vancomycin Trough Miscellaneous Test Crossmatch 06/06/18 06/06/18 06/06/18 11:15 18:00 23:58 WBC RBC Hgb Hct MCHC RDW Plt Count Lymph % (Auto) [place] % (Auto) Lymph # [place] # Seg Neutrophils % Seg Neuts % (Manual) Lymphocytes % (Manual) Seg Neutrophils # Seg Neutrophils # Man Lymphocytes # (Manual) PT INR APTT POC ABG pH POC ABG pCO2 POC ABG pO2 Sodium Potassium Chloride Carbon Dioxide BUN Creatinine Glucose POC Glucose 127 H 130 H 114 H Lactic Acid Calcium Phosphorus Magnesium Iron TIBC AST ALT Alkaline Phosphatase Lactate Dehydrogenase Total Creatine Kinase C-Reactive Protein Total Protein Albumin CA 19-9 Antigen Folate PTH Intact Urine WBC (Auto) Urine Creatinine Urine Chloride Urine Total Protein Fluid Glucose Fluid Total Protein Vancomycin Trough Miscellaneous Test Crossmatch 06/07/18 06/07/18 06/07/18 05:45 05:45 05:54 WBC 15.5 H RBC 2.60 L Hgb 7.4 L Hct 23.1 L MCHC RDW 16.5 H Plt Count 506 H Lymph % (Auto) 5.3 L [place] % (Auto) Lymph # 0.8 L [place] # 1.0 H Seg Neutrophils % 86.6 H Seg Neuts % (Manual) Lymphocytes % (Manual) Seg Neutrophils # 13.4 H Seg Neutrophils # Man Lymphocytes # (Manual) PT INR APTT POC ABG pH POC ABG pCO2 POC ABG pO2 Sodium Potassium Chloride 108.4 H Carbon Dioxide BUN 84 H Creatinine 3.5 H Glucose 119 H POC Glucose 114 H Lactic Acid Calcium 8.1 L Phosphorus 5.10 H Magnesium Iron TIBC AST ALT Alkaline Phosphatase Lactate Dehydrogenase Total Creatine Kinase C-Reactive Protein Total Protein Albumin CA 19-9 Antigen Folate PTH Intact Urine WBC (Auto) Urine Creatinine Urine Chloride Urine Total Protein Fluid Glucose Fluid Total Protein Vancomycin Trough Miscellaneous Test Crossmatch 06/07/18 06/08/18 06/08/18 12:15 05:05 05:24 WBC RBC Hgb Hct MCHC RDW Plt Count Lymph % (Auto) [place] % (Auto) Lymph # [place] # Seg Neutrophils % Seg Neuts % (Manual) Lymphocytes % (Manual) Seg Neutrophils # Seg Neutrophils # Man Lymphocytes # (Manual) PT INR APTT POC ABG pH POC ABG pCO2 POC ABG pO2 Sodium 148 H Potassium Chloride 112.4 H Carbon Dioxide BUN 89 H Creatinine 3.4 H Glucose 120 H POC Glucose 148 H 115 H Lactic Acid Calcium 7.9 L Phosphorus Magnesium Iron TIBC AST ALT Alkaline Phosphatase Lactate Dehydrogenase Total Creatine Kinase C-Reactive Protein Total Protein Albumin CA 19-9 Antigen Folate PTH Intact Urine WBC (Auto) Urine Creatinine Urine Chloride Urine Total Protein Fluid Glucose Fluid Total Protein Vancomycin Trough Miscellaneous Test Crossmatch 06/08/18 06/08/18 06/08/18 21:36 21:43 21:43 WBC RBC 2.98 L Hgb 8.8 L Hct 26.6 L MCHC RDW 16.7 H Plt Count 463 H Lymph % (Auto) 7.9 L [place] % (Auto) Lymph # 0.8 L [place] # Seg Neutrophils % 84.8 H Seg Neuts % (Manual) Lymphocytes % (Manual) Seg Neutrophils # 8.6 H Seg Neutrophils # Man Lymphocytes # (Manual) PT INR APTT POC ABG pH POC ABG pCO2 POC ABG pO2 Sodium Potassium Chloride Carbon Dioxide BUN Creatinine Glucose POC Glucose Lactic Acid Calcium Phosphorus Magnesium Iron TIBC AST ALT Alkaline Phosphatase Lactate Dehydrogenase 297 H Total Creatine Kinase C-Reactive Protein Total Protein Albumin CA 19-9 Antigen 57 H Folate PTH Intact Urine WBC (Auto) Urine Creatinine Urine Chloride Urine Total Protein Fluid Glucose Fluid Total Protein Vancomycin Trough Miscellaneous Test Crossmatch 06/09/18 06/09/18 06/09/18 00:05 05:34 05:50 WBC RBC Hgb Hct MCHC RDW Plt Count Lymph % (Auto) [place] % (Auto) Lymph # [place] # Seg Neutrophils % Seg Neuts % (Manual) Lymphocytes % (Manual) Seg Neutrophils # Seg Neutrophils # Man Lymphocytes # (Manual) PT INR APTT POC ABG pH POC ABG pCO2 POC ABG pO2 Sodium 153 H Potassium Chloride 117.3 H Carbon Dioxide BUN 84 H Creatinine 3.2 H Glucose 117 H POC Glucose 140 H 146 H Lactic Acid Calcium 7.9 L Phosphorus Magnesium Iron TIBC AST ALT Alkaline Phosphatase Lactate Dehydrogenase Total Creatine Kinase C-Reactive Protein Total Protein Albumin CA 19-9 Antigen Folate PTH Intact Urine WBC (Auto) Urine Creatinine Urine Chloride Urine Total Protein Fluid Glucose Fluid Total Protein Vancomycin Trough Miscellaneous Test Crossmatch 06/09/18 06/09/18 06/09/18 05:50 07:37 10:34 WBC RBC 2.32 L Hgb 6.8 L Hct 20.7 L MCHC RDW 16.7 H Plt Count Lymph % (Auto) [place] % (Auto) Lymph # [place] # Seg Neutrophils % Seg Neuts % (Manual) Lymphocytes % (Manual) Seg Neutrophils # Seg Neutrophils # Man Lymphocytes # (Manual) PT INR APTT POC ABG pH POC ABG pCO2 POC ABG pO2 Sodium 149 H Potassium Chloride 114.6 H Carbon Dioxide BUN 84 H Creatinine 3.1 H Glucose 137 H POC Glucose Lactic Acid Calcium 7.7 L Phosphorus Magnesium Iron TIBC AST ALT Alkaline Phosphatase Lactate Dehydrogenase Total Creatine Kinase C-Reactive Protein Total Protein Albumin CA 19-9 Antigen Folate PTH Intact Urine WBC (Auto) Urine Creatinine Urine Chloride Urine Total Protein Fluid Glucose Fluid Total Protein Vancomycin Trough Miscellaneous Test Flexitest 1 H Crossmatch 06/09/18 06/09/18 06/09/18 10:41 11:56 13:24 WBC RBC 2.43 L Hgb 7.2 L Hct 21.6 L MCHC RDW 16.8 H Plt Count Lymph % (Auto) [place] % (Auto) Lymph # [place] # Seg Neutrophils % Seg Neuts % (Manual) Lymphocytes % (Manual) Seg Neutrophils # Seg Neutrophils # Man Lymphocytes # (Manual) PT INR APTT POC ABG pH POC ABG pCO2 POC ABG pO2 Sodium Potassium Chloride Carbon Dioxide BUN Creatinine Glucose POC Glucose 141 H Lactic Acid Calcium Phosphorus Magnesium Iron TIBC AST ALT Alkaline Phosphatase Lactate Dehydrogenase Total Creatine Kinase C-Reactive Protein Total Protein Albumin CA 19-9 Antigen Folate PTH Intact Urine WBC (Auto) Urine Creatinine Urine Chloride Urine Total Protein Fluid Glucose Fluid Total Protein Vancomycin Trough Miscellaneous Test Crossmatch See Detail 06/09/18 06/09/18 06/10/18 18:18 23:13 05:26 WBC RBC Hgb Hct MCHC RDW Plt Count Lymph % (Auto) [place] % (Auto) Lymph # [place] # Seg Neutrophils % Seg Neuts % (Manual) Lymphocytes % (Manual) Seg Neutrophils # Seg Neutrophils # Man Lymphocytes # (Manual) PT INR APTT POC ABG pH POC ABG pCO2 POC ABG pO2 Sodium 148 H Potassium Chloride 114.7 H Carbon Dioxide 21 L BUN 79 H Creatinine 3.2 H Glucose 121 H POC Glucose 156 H 163 H Lactic Acid Calcium 7.8 L Phosphorus Magnesium 1.60 L Iron TIBC AST ALT Alkaline Phosphatase Lactate Dehydrogenase Total Creatine Kinase C-Reactive Protein Total Protein Albumin CA 19-9 Antigen Folate PTH Intact Urine WBC (Auto) Urine Creatinine Urine Chloride Urine Total Protein Fluid Glucose Fluid Total Protein Vancomycin Trough Miscellaneous Test Crossmatch 06/10/18 06/10/18 06/10/18 05:26 05:31 17:15 WBC 11.1 H RBC 3.07 L Hgb 9.1 L Hct 27.6 L D MCHC RDW 17.4 H Plt Count Lymph % (Auto) [place] % (Auto) Lymph # [place] # Seg Neutrophils % Seg Neuts % (Manual) Lymphocytes % (Manual) Seg Neutrophils # Seg Neutrophils # Man Lymphocytes # (Manual) PT INR APTT POC ABG pH POC ABG pCO2 POC ABG pO2 Sodium Potassium Chloride Carbon Dioxide BUN Creatinine Glucose POC Glucose 128 H Lactic Acid Calcium Phosphorus Magnesium Iron TIBC AST ALT Alkaline Phosphatase Lactate Dehydrogenase Total Creatine Kinase C-Reactive Protein 3.60 H Total Protein Albumin CA 19-9 Antigen Folate PTH Intact Urine WBC (Auto) Urine Creatinine Urine Chloride Urine Total Protein Fluid Glucose Fluid Total Protein Vancomycin Trough Miscellaneous Test Crossmatch 06/11/18 06/11/18 06/11/18 01:13 05:41 05:41 WBC 14.6 H RBC 3.40 L Hgb 9.8 L Hct 30.7 L MCHC RDW 18.1 H Plt Count Lymph % (Auto) [place] % (Auto) Lymph # [place] # Seg Neutrophils % Seg Neuts % (Manual) Lymphocytes % (Manual) Seg Neutrophils # Seg Neutrophils # Man Lymphocytes # (Manual) PT INR APTT POC ABG pH POC ABG pCO2 POC ABG pO2 Sodium Potassium Chloride 110.8 H Carbon Dioxide 18 L BUN 77 H Creatinine 3.0 H Glucose 116 H POC Glucose 126 H Lactic Acid Calcium 7.9 L Phosphorus Magnesium Iron TIBC AST ALT Alkaline Phosphatase Lactate Dehydrogenase Total Creatine Kinase C-Reactive Protein Total Protein Albumin CA 19-9 Antigen Folate PTH Intact Urine WBC (Auto) Urine Creatinine Urine Chloride Urine Total Protein Fluid Glucose Fluid Total Protein Vancomycin Trough Miscellaneous Test Crossmatch 06/11/18 06/11/18 06/11/18 06:20 07:41 07:41 WBC RBC Hgb Hct MCHC RDW Plt Count Lymph % (Auto) [place] % (Auto) Lymph # [place] # Seg Neutrophils % Seg Neuts % (Manual) Lymphocytes % (Manual) Seg Neutrophils # Seg Neutrophils # Man Lymphocytes # (Manual) PT INR APTT POC ABG pH POC ABG pCO2 POC ABG pO2 Sodium Potassium Chloride Carbon Dioxide BUN Creatinine Glucose POC Glucose 136 H Lactic Acid Calcium Phosphorus Magnesium Iron TIBC AST ALT Alkaline Phosphatase Lactate Dehydrogenase Total Creatine Kinase C-Reactive Protein Total Protein Albumin CA 19-9 Antigen Folate PTH Intact Urine WBC (Auto) 10.0 H Urine Creatinine 41.2 H Urine Chloride 49.2 L Urine Total Protein 142 H Fluid Glucose Fluid Total Protein Vancomycin Trough Miscellaneous Test Crossmatch 06/11/18 06/12/18 06/12/18 18:35 00:34 04:12 WBC RBC 3.18 L Hgb 9.5 L Hct 28.7 L MCHC RDW 18.5 H Plt Count Lymph % (Auto) 8.1 L [place] % (Auto) Lymph # 0.9 L [place] # Seg Neutrophils % 84.6 H Seg Neuts % (Manual) Lymphocytes % (Manual) Seg Neutrophils # 9.1 H Seg Neutrophils # Man Lymphocytes # (Manual) PT INR APTT POC ABG pH POC ABG pCO2 POC ABG pO2 Sodium Potassium Chloride Carbon Dioxide BUN Creatinine Glucose POC Glucose 125 H 129 H Lactic Acid Calcium Phosphorus Magnesium Iron TIBC AST ALT Alkaline Phosphatase Lactate Dehydrogenase Total Creatine Kinase C-Reactive Protein Total Protein Albumin CA 19-9 Antigen Folate PTH Intact Urine WBC (Auto) Urine Creatinine Urine Chloride Urine Total Protein Fluid Glucose Fluid Total Protein Vancomycin Trough Miscellaneous Test Crossmatch 06/12/18 06/12/18 06/12/18 04:12 06:30 11:43 WBC RBC Hgb Hct MCHC RDW Plt Count Lymph % (Auto) [place] % (Auto) Lymph # [place] # Seg Neutrophils % Seg Neuts % (Manual) Lymphocytes % (Manual) Seg Neutrophils # Seg Neutrophils # Man Lymphocytes # (Manual) PT INR APTT POC ABG pH POC ABG pCO2 POC ABG pO2 Sodium Potassium Chloride 108.5 H Carbon Dioxide 21 L BUN 72 H Creatinine 3.0 H Glucose 122 H POC Glucose 129 H 126 H Lactic Acid Calcium 7.8 L Phosphorus Magnesium Iron TIBC AST 45 H ALT Alkaline Phosphatase 200 H Lactate Dehydrogenase Total Creatine Kinase 34 L C-Reactive Protein Total Protein Albumin 1.7 L CA 19-9 Antigen Folate PTH Intact Urine WBC (Auto) Urine Creatinine Urine Chloride Urine Total Protein Fluid Glucose Fluid Total Protein Vancomycin Trough Miscellaneous Test Crossmatch 06/12/18 06/12/18 06/13/18 16:00 23:56 03:44 WBC RBC Hgb Hct MCHC RDW Plt Count Lymph % (Auto) [place] % (Auto) Lymph # [place] # Seg Neutrophils % Seg Neuts % (Manual) Lymphocytes % (Manual) Seg Neutrophils # Seg Neutrophils # Man Lymphocytes # (Manual) PT INR APTT POC ABG pH POC ABG pCO2 POC ABG pO2 Sodium Potassium Chloride Carbon Dioxide BUN Creatinine Glucose POC Glucose 123 H 128 H 121 H Lactic Acid Calcium Phosphorus Magnesium Iron TIBC AST ALT Alkaline Phosphatase Lactate Dehydrogenase Total Creatine Kinase C-Reactive Protein Total Protein Albumin CA 19-9 Antigen Folate PTH Intact Urine WBC (Auto) Urine Creatinine Urine Chloride Urine Total Protein Fluid Glucose Fluid Total Protein Vancomycin Trough Miscellaneous Test Crossmatch 06/13/18 06/13/18 06/14/18 05:59 11:29 01:08 WBC RBC Hgb Hct MCHC RDW Plt Count Lymph % (Auto) [place] % (Auto) Lymph # [place] # Seg Neutrophils % Seg Neuts % (Manual) Lymphocytes % (Manual) Seg Neutrophils # Seg Neutrophils # Man Lymphocytes # (Manual) PT INR APTT POC ABG pH POC ABG pCO2 POC ABG pO2 Sodium 134 L Potassium Chloride Carbon Dioxide 20 L BUN 69 H Creatinine 2.9 H Glucose 113 H POC Glucose 124 H 128 H Lactic Acid Calcium 7.8 L Phosphorus Magnesium Iron TIBC AST ALT Alkaline Phosphatase Lactate Dehydrogenase Total Creatine Kinase C-Reactive Protein Total Protein Albumin CA 19-9 Antigen Folate PTH Intact Urine WBC (Auto) Urine Creatinine Urine Chloride Urine Total Protein Fluid Glucose Fluid Total Protein Vancomycin Trough Miscellaneous Test Crossmatch 06/14/18 06/14/18 06/14/18 06:42 06:42 09:50 WBC 11.3 H RBC 3.02 L Hgb 8.8 L Hct 27.3 L MCHC RDW 18.6 H Plt Count Lymph % (Auto) [place] % (Auto) Lymph # [place] # Seg Neutrophils % Seg Neuts % (Manual) Lymphocytes % (Manual) Seg Neutrophils # Seg Neutrophils # Man Lymphocytes # (Manual) PT 16.3 H INR 1.24 H APTT POC ABG pH POC ABG pCO2 POC ABG pO2 Sodium 132 L Potassium Chloride Carbon Dioxide 19 L BUN 71 H Creatinine 3.1 H Glucose POC Glucose Lactic Acid Calcium 7.8 L Phosphorus Magnesium Iron TIBC AST ALT Alkaline Phosphatase Lactate Dehydrogenase Total Creatine Kinase C-Reactive Protein Total Protein Albumin CA 19-9 Antigen Folate PTH Intact Urine WBC (Auto) Urine Creatinine Urine Chloride Urine Total Protein Fluid Glucose Fluid Total Protein Vancomycin Trough Miscellaneous Test Crossmatch 06/14/18 06/14/18 06/15/18 12:31 17:04 01:18 WBC RBC Hgb Hct MCHC RDW Plt Count Lymph % (Auto) [place] % (Auto) Lymph # [place] # Seg Neutrophils % Seg Neuts % (Manual) Lymphocytes % (Manual) Seg Neutrophils # Seg Neutrophils # Man Lymphocytes # (Manual) PT INR APTT POC ABG pH POC ABG pCO2 POC ABG pO2 Sodium Potassium Chloride Carbon Dioxide BUN Creatinine Glucose POC Glucose 125 H 109 H 124 H Lactic Acid Calcium Phosphorus Magnesium Iron TIBC AST ALT Alkaline Phosphatase Lactate Dehydrogenase Total Creatine Kinase C-Reactive Protein Total Protein Albumin CA 19-9 Antigen Folate PTH Intact Urine WBC (Auto) Urine Creatinine Urine Chloride Urine Total Protein Fluid Glucose Fluid Total Protein Vancomycin Trough Miscellaneous Test Crossmatch 06/15/18 06/15/18 05:27 06:34 WBC RBC Hgb Hct MCHC RDW Plt Count Lymph % (Auto) [place] % (Auto) Lymph # [place] # Seg Neutrophils % Seg Neuts % (Manual) Lymphocytes % (Manual) Seg Neutrophils # Seg Neutrophils # Man Lymphocytes # (Manual) PT INR APTT POC ABG pH POC ABG pCO2 POC ABG pO2 Sodium 134 L Potassium Chloride Carbon Dioxide 17 L BUN 77 H Creatinine 3.2 H Glucose 110 H POC Glucose 116 H Lactic Acid Calcium 8.1 L Phosphorus 6.20 H D Magnesium Iron TIBC AST ALT Alkaline Phosphatase Lactate Dehydrogenase Total Creatine Kinase C-Reactive Protein Total Protein Albumin CA 19-9 Antigen Folate PTH Intact Urine WBC (Auto) Urine Creatinine Urine Chloride Urine Total Protein Fluid Glucose Fluid Total Protein Vancomycin Trough Miscellaneous Test Crossmatch Allied health notes reviewed: nursing
[2018-06-15] MEDS: ZOSYN/NS 2.25 GM/50ML 2.25 GM/50 ML BAG IV SCH ×2 (09:29→22:00)
[2018-06-15] MEDS: FOLVITE PO SCH (09:30)
[2018-06-15] MEDS: FERROUS SULFATE PO SCH ×2 (09:30→22:01)
[2018-06-15] MEDS: PEPCID IV SCH (10:00)
--- NOTE | 2018-06-15 10:14 | Discharge Summary ---
Providers - Providers Date of Admission: 05/13/18 10:36 Date of discharge: 06/17/18 Attending physician: TRESSA WASHINGTON 05/13/18 10:53 Consult to Physician [CONS] Routine Comment: OFFICE NOTIFIED TYLER 1210 Consulting Provider: MARCELLO SCHWARTZ Physician Instructions: Reason For Exam: MARYLOU 05/14/18 11:12 Consult to Physician [CONS] Routine Comment: Consulting Provider: KATERINA SILVA Physician Instructions: Reason For Exam: Bilateal Hydronephrosis. 05/17/18 13:50 Consult to Physician [CONS] Routine Comment: Consulting Provider: TONIO CARRILLO Physician Instructions: Reason For Exam: pelvic mass 05/21/18 17:08 Consult to Physician [CONS] Routine Comment: Consulting Provider: MICHOACANO ESPINOZA Physician Instructions: Reason For Exam: SBO 05/22/18 12:21 Consult to Physician [CONS] Routine Comment: Consulting Provider: HANNAH SHIPLEY Physician Instructions: Reason For Exam: possible colon mass 05/23/18 12:00 Consult to Dietitian/Nutrition [CONS] Routine Physician Instructions: Reason For Exam: Reason for Consult: Write/Manage TPN/PPN 05/25/18 15:28 Consult to Physician [CONS] Routine Comment: Consulting Provider: TAM BEE Physician Instructions: Reason For Exam: Acute resp failure, sepsis, MARYLOU, cancer 05/26/18 10:39 Consult to Physician [CONS] Routine Comment: Consulting Provider: SUGEY CHI Physician Instructions: Reason For Exam: Leukocytosis, Fever, possible Sepsis 05/27/18 15:18 Consult to Wound/ET Nurse [CONS] Urgent Reason For Exam: New colostomy 05/31/18 14:59 Physical Therapy Evaluation and Treat [CONS] Routine Comment: Reason For Exam: deconditioning, critical illness 06/01/18 18:11 Consult to Physician [CONS] Routine Comment: Consulting Provider: TIM ARGUELLO Physician Instructions: Reason For Exam: Paracentesis, abdominal distention, ascites 06/01/18 18:37 Consult to Physician [CONS] Routine Comment: Consulting Provider: BENTLEY RICHARDSON Physician Instructions: Reason For Exam: abdominal ascites, paracentesis 06/06/18 09:56 Consult to Physician [CONS] Routine Comment: Davol drain dislodged over night. Consulting Provider: BENTLEY RICHARDSON Physician Instructions: Reason For Exam: CT guided drainage of pelvic fluid collection 06/07/18 15:35 Consult to Case Management [CONS] Stat Services Needed at Discharge: Other Notified:: relocation director Additional Physician Instructions: [facility] M [phone] O [phone] F [phone] OUTPATIENT PARENTERAL ANTIBIOTIC THERAPY ORDERS Diagnoses: Pelvic abscess Antimicrobial administration: zosyn IV 2.25 g q12 while on HD total 3 weeks until 06/24 Lines: PICC Lab monitoring: CBC, BMP, CRP once a week preferly on Wednesday morning. Please fax results to [phone] and call [phone] for critical lab results. 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 He had abdominal pain, bilateral leg swelling, stopped making urine. Also noted weight loss of over 50 pounds in the last 3 months. It never have seen a primary care physician. In the ED initial temperature 97.8, heart rate 99, respirations 16, O2 sat 98, blood pressure 197/120. Initial white count 7.8, hemoglobin 9.4, platelets 363. Creat 13. UA on 05/13 was negative. Chest x-ray showed left pleural effusion, pulmonary patchy consolidation with her son Doppler of the legs showed right lower extremity DVT and superficial left lower extremity thrombosis. The patient was admitted with diagnosis of CT of the abdomen on admission showed large necrotic mass in the posterior bladder measuring 8.5 x 10.8 x 8.1. Enlarged pelvic lymph nodes, bilateral hydronephrosis. CTA of the chest showed no PE, bibasilar atelectases and pericardial effusion. Since admission, he has been diagnosed with pelvic mass, SBO, MARYLOU, acute DVT in RLE, anemia, sepsis. 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 By 05/18/2018 patient underwent cystoscopy with right great toe pyelogram found to have a bladder mass and prostate mass. The patient also was noted to have further complications during hospital stay with bowel obstruction and underwent exploratory laparotomy, revealed matted abdominal organs, pus. Eenterostomy tube decompression,loop colostomy and large triple lumen sump drainage of pelvis completed by surgery on 05/26/18. The patient had a diverting colostomy at that time as well. The patient was seen by infectious disease and was maintained on IV antibiotics for sepsis. Postoperatively patient remained intubated on mechanical ventilation in the ICU. The patient's sepsis improved etiology was unclear but felt most likely secondary to necrotic malignancy ? abscess +/- UTI +/- LLL pneumonia. The Blood cxs from 05/15 neg, 05/20 neg, 05/26 neg. other infectious workup revealed Candiduria: minimal pyuria of 10 WBCs/hpf in the setting of avila catheter and broad spectrum abx use, would consider it colonization rather than true infection, no antifungal indicated. 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 On 06/06, a Large mass is seen again in the pelvis with central low density suggesting necrosis. Also, could not exclude superimposed infectious process. Paracentesis on 06/03 for further evaluation revealed + MSSE. On 06/07, CT guided placement of drainage catheter of purulent appearing serous fluid aspirated. Samples were sent for laboratory analysis. The patient was noted to have left lower lobe pneumonia probably secondary to aspiration pneumonia with sputum cultures revealing yeast. Other competitions from the sepsis including acute kidney injury and was patient now requires hemodialysis. Eventually, patient will stabilize and a long discussion was had with the family with regards to discharge planning. Arrangements have been made for LTAC transfer. Dedicated discharge time 49 minutes. Disposition: DC/TX-70 [facility]OTHER [facility] Time spent for discharge: 49 - Discharge Diagnoses (1) Acute renal failure Status: Acute Qualifiers: Acute renal failure type: unspecified Qualified Code(s): N17.9 - Acute kidney failure, unspecified (2) Bilateral pleural effusion Status: Acute (3) Edema Status: Acute Qualifiers: Edema type: unspecified Qualified Code(s): R60.9 - Edema, unspecified (4) Hypertensive urgency, malignant Status: Acute (5) Intestinal obstruction Status: Acute (6) Pelvic mass in male Status: Acute (7) Pneumonia involving left lung Status: Acute (8) Sepsis Status: Acute (9) UTI (urinary tract infection) Status: Acute Core Measure Documentation - Palliative Care Palliative Care/ Comfort Measures: Not Applicable - Core Measures Any of the following diagnoses?: none Exam - Constitutional Vitals: Temp Pulse Resp BP Pulse Ox 98.3 F 87 16 132/76 96 06/15/18 08:21 06/15/18 08:21 06/15/18 08:21 06/15/18 08:21 06/15/18 08:21 General appearance: Present: no acute distress, well-nourished - EENT Eyes: Present: PERRL ENT: hearing intact, clear oral mucosa - Neck Neck: Present: supple, normal ROM - Respiratory Respiratory effort: normal Respiratory: bilateral: CTA - Cardiovascular Heart Sounds: Present: S1 & S2. Absent: rub, click - Extremities Extremities: pulses symmetrical, No edema Peripheral Pulses: within normal limits - Abdominal General gastrointestinal: Present: soft, non-tender, non-distended, normal bowel sounds Male genitourinary: Present: normal - Integumentary Integumentary: Present: clear, warm, dry - Musculoskeletal Musculoskeletal: gait normal, strength equal bilaterally - Psychiatric Psychiatric: appropriate mood/affect, intact judgment & insight - Neurologic Neurologic: CNII-XII intact, moves all extremities Plan Activity: advance as tolerated Weight Bearing Status: Non-Weight Bearing Follow up with: PRIMARY MD WILLIAM [Primary Care Provider] - 3-5 Days TAM BEE MD [Staff Physician] - 7 Days MARCELLO SCHWARTZ MD [Staff Physician] - 7 Days SUGEY CHI MD [Staff Physician] - 7 Days MICHOACANO ESPINOZA MD [Staff Physician] - 7 Days
--- NOTE | 2018-06-15 14:10 | Vascular Lab Report ---
LOWER EXTREMITY VENOUS DUPLEX: REASON FOR EXAM: Pain and swelling of the lower extremities. COMMENTS ON THE RIGHT: Partially occluding acute thrombus is seen in the common femoral vein.. The remaining veins visualized are freely compressible without evidence of internal echogenicity. Spontaneous and phasic flow is diminished proximally. COMMENTS ON THE LEFT: All veins visualized are freely compressible without evidence of internal echogenicity. Flow is spontaneous and phasic throughout. IMPRESSION: Partially occluding acute deep venous thrombosis seen in the right common femoral vein. No evidence of acute deep venous thrombosis in the left lower extremity.
--- NOTE | 2018-06-15 16:40 | Hem/Onc Progress Note ---
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 Ultrasound Kidneys showed bilat hydronephrosis CT Abd shows Pelvic mass with multiple large lymph nodes Had bilateral nephrostomy tubes placed 05/14/[address] Freeman. 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 Ct chest was done - CTA - no PE treatment for pneumonia LTAC eval CA - - elevated - Patient Problems (1) Pelvic mass in male Current Visit: Yes Status: Acute Subjective Date of service: 06/15/18 Principal diagnosis: sq cell ca Interval history: pt had diverting colostomy 05/26 has colostomy Objective - Constitutional Vitals: Last Vital Signs Temp 99.0 F 06/15/18 11:44 Pulse 87 06/15/18 08:21 Resp 18 06/15/18 11:44 BP 127/68 06/15/18 11:44 Pulse Ox 96 06/15/18 08:21 Pain Intensity (0-10): denies any pain Performance status: 3-limited selfcare - EENT Eyes: PERRL ENT: clear oral mucosa Lymph node exam: negative cervical, negative supraclavicular - Respiratory Respiratory effort: Positive: normal Respiratory: bilateral: CTA (anteriorly) - Cardiovascular Heart Sounds: Present: S1 & S2 - Gastrointestinal General gastrointestinal: Present: soft, other (colostomy) Rectal Exam: deferred - Genitourinary Male genitourinary: Present: deferred - Integumentary Integumentary: warm - Neurologic Neurologic: moves all extremities - Labs Lab Results: Laboratory Results - last 24 hr 06/14/18 06/15/18 06/15/18 17:04 01:18 05:27 Sodium Potassium Chloride Carbon Dioxide Anion Gap BUN Creatinine Estimated GFR BUN/Creatinine Ratio Glucose POC Glucose 109 H 124 H 116 H Calcium Phosphorus Magnesium 06/15/18 06:34 Sodium 134 L Potassium 4.9 Chloride 102.6 Carbon Dioxide 17 L Anion Gap 19 BUN 77 H Creatinine 3.2 H Estimated GFR 25 BUN/Creatinine Ratio 24 Glucose 110 H POC Glucose Calcium 8.1 L Phosphorus 6.20 H D Magnesium 2.30
[2018-06-15] MEDS ORDERED: TPN ADULT 2,016 ML IV SCH (20:00)
[2018-06-15] MEDS ORDERED: INTRALIPID 20% 250 ML IV SCH (20:00)
[2018-06-16] MEDS: HumuLIN R SUB-Q SCH ×4 (00:57→18:00)
[2018-06-16] MEDS: APRESOLINE PO SCH ×3 (05:50→21:12)
[2018-06-16 06:06] LABS: Calcium 7.8 mg/dL (8.4-10.2)
[2018-06-16] MEDS: NORMODYNE PO SCH ×3 (08:00→20:43)
--- NOTE | 2018-06-16 08:11 | Progress Note ---
Assessment and Plan 1. Acute kidney injury: Initial MARYLOU in the setting of bilateral hydronephrosis secondary to pelvic mass , now s/p bilateral nephrostomy. Recurrent Acute kidney injury likely ATN now. Patient was on hemodialysis due to worsening renal function and persistent hyperkalemia. Last dialyzed on 06/02/18. BUN and Creatinine level are increasing. Continue IV fluids. Renal prognosis is guarded. On PPN / TPN. 2. Electrolytes: Mild hyponatremia, monitor. 3. Bowel obstruction: S/p ostomy. 4. Bilateral hydronephrosis: Secondary to pelvic mass. S/p bilateral nephrostomy. S/p Cysto and drainage of abscess. 5. Respiratory failure: S/p extubated. 6. Hypertension: On Clonidine patch and PO Labetalol. Monitor BP. 7. Sepsis: Complicated UTI and pneumonia. 8. Anemia. 9. 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 Await LTAC placement. Subjective Date of service: 06/16/18 Principal diagnosis: sq cell ca -prostate Interval history: Patient was seen and examined at the bedside. On liquid diet. Objective - Vital Signs Vital signs: Vital Signs - 12hr 06/15/18 06/15/18 06/16/18 22:13 23:58 04:58 Temperature 97.8 F 98.9 F Pulse Rate 95 H 87 87 Respiratory 96 H 18 Rate Blood Pressure 110/64 124/75 [Left] Blood Pressure 110/64 [Right] O2 Sat by Pulse 94 Oximetry - General Appearance General appearance: well-developed, appears stated age, other (no distress) EENT: ATNC, PERRL, mucous membranes moist, hearing intact Neck: supple Respiratory: Present: Clear to Ascultation Cardiology: regular, S1S2, no murmurs Gastrointestinal: normoactive bowel sounds, other (ostomy and bilateral nephrostomy noted) Integumentary: no rash Neurologic: no focal deficit, no asterixis Musculoskeletal: other (no edema) - Lab 06/14/18 06:42 06/16/18 05:10 Most recent lab results Calcium 7.8 mg/dL (8.4-10.2) L 06/16/18 05:10 Phosphorus 6.10 mg/dL (2.5-4.5) H 06/16/18 05:10 Magnesium 2.20 mg/dL (1.7-2.3) 06/16/18 05:10 Urine Creatinine 41.2 mg/dL (0.1-20.0) H 06/11/18 07:41 Urine Sodium 79 mmol/L 06/11/18 07:41 Urine Total Protein 142 mg/dL (5-11.8) H 06/11/18 07:41
--- NOTE | 2018-06-16 09:21 | Progress Note ---
Assessment and Plan Acute hypoxemic respiratory failure, possibly secondary to 2. Bilateral pneumonia, possibly aspiration. Sepsis syndrome. 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 Acute deep venous thrombosis. Hypertensive urgency. Hyperkalemia, now resolved. Moderate to severe protein calorie malnutrition Hypernatremia. Hypochloremia. Anemia, normocytic. (ABLA) - continue supplemental oxygen to keep sats > 90% - continue bronchodilators with pulmonary hygiene per RT - continue aspiration precautions - continue HD/UF for toxin and volume clearance - continue anti-infective's per ID recs - continue TPN for now (enteral nutrition once cleared by surgery) - Malignancy per heme-oncologist - continue mobility protocol for pressure ulcer prophylaxis - s/p surgery 05/26 (had ex-lap; matted abdominal organs, pus) - s/p bilateral nephrostomy tubes placed 05/14/[address] Freeman. - continue other care per attending / other consultants - prn paracentesis - continue other care per attending / other consultants ... re-evaluate in am & prn Subjective Date of service: 06/16/18 Principal diagnosis: Acute Hypoxemic Resp Failure; Sepsis Syndrome; Acute VTE; Prostate Cancer Interval history: Patient is seen today for: Acute Hypoxemic Resp Failure; Sepsis Syndrome; Acute VTE; Prostate Cancer Seen and examined at bedside; 24hour events reviewed; nursing and respiratory care staff consulted; no adverse overnight events reported to me; resting peacefully in bed; wound care ongoing; denies acute chest pains but still with some SOB Objective Vital Signs - 12hr 06/15/18 06/15/18 06/16/18 22:13 23:58 04:58 Temperature 97.8 F 98.9 F Pulse Rate 95 H 87 87 Respiratory 96 H 18 Rate Blood Pressure Blood Pressure 110/64 124/75 [Left] Blood Pressure 110/64 [Right] O2 Sat by Pulse 94 Oximetry 06/16/18 08:48 Temperature 98.2 F Pulse Rate 106 H Respiratory 20 Rate Blood Pressure 163/77 Blood Pressure [Left] Blood Pressure [Right] O2 Sat by Pulse 95 Oximetry Constitutional: no acute distress, alert, other (chronically ill looking middle aged AAM, normocephalic and atraumatic, ) Eyes: non-icteric ENT: oropharynx moist, other (Mallampati 2) Neck: supple, no lymphadenopathy, no JVD, other (no thyromegaly) Effort: mildly labored Ascultation: Bilateral: diminished breath sounds, rhonchi (scant in bases) Percussion: Bilateral: not dull Cardiovascular: regular rate and rhythm, other (No R/M) Gastrointestinal: hypoactive bowel sounds, soft, tender (mild), other (Distended ; No palpable HSM, bilateral nephrostomy tubes,Colostomy, ZAKI drain) Integumentary: other (femoral vascath) Extremities: no cyanosis, no edema, pulses normal, no ischemia or petechiae Neurologic: normal mental status, non-focal exam, pupils equal and round, other (weak) Psychiatric: mood appropriate, affect normal CBC and BMP: 06/18/18 04:04 06/18/18 04:04 ABG, PT/INR, D-dimer: ABG POC ABG pH 7.362 (7.35-7.45) 05/31/18 09:58 POC ABG pCO2 36.4 (35-45) 05/31/18 09:58 POC ABG pO2 101 (80-105) 05/31/18 09:58 POC ABG HCO3 20.7 05/31/18 09:58 POC ABG Total CO2 22 05/31/18 09:58 POC ABG O2 Sat 98 05/31/18 09:58 PT/INR, D-dimer PT 16.3 Sec. (12.2-14.9) H 06/14/18 09:50 INR 1.24 (0.87-1.13) H 06/14/18 09:50 Abnormal lab findings: Abnormal Labs 05/13/18 05/13/18 05/13/18 04:27 04:27 19:39 WBC RBC 3.13 L Hgb 9.4 L Hct 26.8 L MCHC 35 H RDW Plt Count Lymph % (Auto) [place] % (Auto) 9.6 H Lymph # [place] # Seg Neutrophils % Seg Neuts % (Manual) Lymphocytes % (Manual) Seg Neutrophils # Seg Neutrophils # Man Lymphocytes # (Manual) PT INR APTT POC ABG pH POC ABG pCO2 POC ABG pO2 Sodium 132 L Potassium 5.5 H Chloride 94.1 L Carbon Dioxide 19 L BUN 72 H Creatinine 14.4 H Glucose POC Glucose Lactic Acid Calcium Phosphorus Magnesium Iron TIBC AST ALT Alkaline Phosphatase Lactate Dehydrogenase Total Creatine Kinase C-Reactive Protein Total Protein Albumin 2.8 L CA 19-9 Antigen Folate PTH Intact Urine WBC (Auto) Urine Creatinine 66.0 H Urine Chloride 27.8 L Urine Total Protein 24 H Fluid Glucose Fluid Total Protein Vancomycin Trough Miscellaneous Test Crossmatch 05/13/18 05/14/18 05/14/18 20:00 05:05 05:05 WBC RBC Hgb Hct MCHC RDW Plt Count Lymph % (Auto) [place] % (Auto) Lymph # [place] # Seg Neutrophils % Seg Neuts % (Manual) Lymphocytes % (Manual) Seg Neutrophils # Seg Neutrophils # Man Lymphocytes # (Manual) PT INR APTT POC ABG pH POC ABG pCO2 POC ABG pO2 Sodium 132 L 131 L Potassium 5.2 H 5.8 H Chloride 93.0 L 95.6 L Carbon Dioxide 19 L 20 L BUN 74 H 81 H Creatinine 15.0 H 16.6 H Glucose 134 H 127 H POC Glucose Lactic Acid Calcium 8.2 L 7.9 L Phosphorus 6.30 H Magnesium Iron TIBC AST ALT Alkaline Phosphatase Lactate Dehydrogenase Total Creatine Kinase 236 H C-Reactive Protein Total Protein Albumin CA 19-9 Antigen Folate PTH Intact 65.37 H Urine WBC (Auto) Urine Creatinine Urine Chloride Urine Total Protein Fluid Glucose Fluid Total Protein Vancomycin Trough Miscellaneous Test Crossmatch 05/14/18 05/14/18 05/14/18 09:28 10:56 13:29 WBC RBC Hgb Hct MCHC RDW Plt Count Lymph % (Auto) [place] % (Auto) Lymph # [place] # Seg Neutrophils % Seg Neuts % (Manual) Lymphocytes % (Manual) Seg Neutrophils # Seg Neutrophils # Man Lymphocytes # (Manual) PT INR APTT 38.2 H POC ABG pH POC ABG pCO2 POC ABG pO2 Sodium Potassium Chloride Carbon Dioxide BUN Creatinine Glucose POC Glucose 127 H 126 H Lactic Acid Calcium Phosphorus Magnesium Iron TIBC AST ALT Alkaline Phosphatase Lactate Dehydrogenase Total Creatine Kinase C-Reactive Protein Total Protein Albumin CA 19-9 Antigen Folate PTH Intact Urine WBC (Auto) Urine Creatinine Urine Chloride Urine Total Protein Fluid Glucose Fluid Total Protein Vancomycin Trough Miscellaneous Test Crossmatch 05/15/18 05/15/18 05/16/18 08:06 08:06 07:02 WBC RBC 2.84 L 2.74 L Hgb 8.5 L 8.5 L Hct 24.2 L 23.5 L MCHC 35 H 36 H RDW Plt Count Lymph % (Auto) [place] % (Auto) 10.4 H 11.0 H Lymph # 1.1 L [place] # 0.9 H Seg Neutrophils % 72.6 H Seg Neuts % (Manual) Lymphocytes % (Manual) Seg Neutrophils # Seg Neutrophils # Man Lymphocytes # (Manual) PT INR APTT POC ABG pH POC ABG pCO2 POC ABG pO2 Sodium Potassium Chloride Carbon Dioxide 19 L BUN 66 H Creatinine 12.0 H Glucose 115 H POC Glucose Lactic Acid Calcium 8.1 L Phosphorus Magnesium Iron TIBC AST ALT Alkaline Phosphatase Lactate Dehydrogenase Total Creatine Kinase C-Reactive Protein Total Protein Albumin CA 19-9 Antigen Folate PTH Intact Urine WBC (Auto) Urine Creatinine Urine Chloride Urine Total Protein Fluid Glucose Fluid Total Protein Vancomycin Trough Miscellaneous Test Crossmatch 05/16/18 05/16/18 05/17/18 07:02 07:02 05:08 WBC RBC 2.78 L Hgb 8.2 L Hct 23.9 L MCHC RDW Plt Count Lymph % (Auto) [place] % (Auto) 13.9 H Lymph # [place] # 0.9 H Seg Neutrophils % Seg Neuts % (Manual) Lymphocytes % (Manual) Seg Neutrophils # Seg Neutrophils # Man Lymphocytes # (Manual) PT INR APTT POC ABG pH POC ABG pCO2 POC ABG pO2 Sodium Potassium Chloride Carbon Dioxide BUN 28 H Creatinine 2.4 H D Glucose POC Glucose Lactic Acid Calcium 8.3 L Phosphorus Magnesium 1.50 L Iron 24 L TIBC 160 L AST ALT Alkaline Phosphatase Lactate Dehydrogenase Total Creatine Kinase C-Reactive Protein Total Protein Albumin CA 19-9 Antigen Folate 5.39 L PTH Intact Urine WBC (Auto) Urine Creatinine Urine Chloride Urine Total Protein Fluid Glucose Fluid Total Protein Vancomycin Trough Miscellaneous Test Crossmatch 05/17/18 05/18/18 05/18/18 05:08 05:57 05:57 WBC RBC 2.79 L Hgb 8.3 L Hct 24.0 L MCHC 35 H RDW Plt Count Lymph % (Auto) [place] % (Auto) 11.8 H Lymph # [place] # 0.9 H Seg Neutrophils % Seg Neuts % (Manual) Lymphocytes % (Manual) Seg Neutrophils # Seg Neutrophils # Man Lymphocytes # (Manual) PT INR APTT POC ABG pH POC ABG pCO2 POC ABG pO2 Sodium Potassium Chloride Carbon Dioxide BUN Creatinine Glucose POC Glucose Lactic Acid Calcium 7.7 L 8.0 L Phosphorus Magnesium 1.60 L Iron TIBC AST ALT Alkaline Phosphatase Lactate Dehydrogenase Total Creatine Kinase C-Reactive Protein Total Protein Albumin CA 19-9 Antigen Folate PTH Intact Urine WBC (Auto) Urine Creatinine Urine Chloride Urine Total Protein Fluid Glucose Fluid Total Protein Vancomycin Trough Miscellaneous Test Crossmatch 05/19/18 05/19/18 05/20/18 05:33 05:33 05:38 WBC RBC 2.95 L Hgb 8.8 L Hct 25.8 L MCHC RDW Plt Count Lymph % (Auto) 10.1 L [place] % (Auto) Lymph # 1.1 L [place] # Seg Neutrophils % 85.2 H Seg Neuts % (Manual) Lymphocytes % (Manual) Seg Neutrophils # 9.0 H Seg Neutrophils # Man Lymphocytes # (Manual) PT INR APTT POC ABG pH POC ABG pCO2 POC ABG pO2 Sodium 135 L Potassium Chloride Carbon Dioxide BUN Creatinine Glucose 132 H POC Glucose Lactic Acid Calcium 7.8 L 8.3 L Phosphorus Magnesium 1.40 L Iron TIBC AST ALT Alkaline Phosphatase Lactate Dehydrogenase Total Creatine Kinase C-Reactive Protein Total Protein Albumin CA 19-9 Antigen Folate PTH Intact Urine WBC (Auto) Urine Creatinine Urine Chloride Urine Total Protein Fluid Glucose Fluid Total Protein Vancomycin Trough Miscellaneous Test Crossmatch 05/21/18 05/21/18 05/22/18 04:46 15:30 06:49 WBC 20.0 H RBC 2.70 L Hgb 7.8 L Hct 23.3 L MCHC RDW Plt Count Lymph % (Auto) [place] % (Auto) Lymph # [place] # Seg Neutrophils % Seg Neuts % (Manual) 85.0 H Lymphocytes % (Manual) 4.0 L Seg Neutrophils # Seg Neutrophils # Man 17.0 H Lymphocytes # (Manual) 0.8 L PT INR APTT POC ABG pH POC ABG pCO2 POC ABG pO2 Sodium 135 L Potassium 3.5 L Chloride Carbon Dioxide 21 L BUN 22 H Creatinine Glucose POC Glucose Lactic Acid Calcium 8.1 L Phosphorus Magnesium Iron TIBC AST ALT Alkaline Phosphatase Lactate Dehydrogenase Total Creatine Kinase C-Reactive Protein Total Protein Albumin CA 19-9 Antigen Folate PTH Intact Urine WBC (Auto) 28.0 H Urine Creatinine Urine Chloride Urine Total Protein Fluid Glucose Fluid Total Protein Vancomycin Trough Miscellaneous Test Crossmatch 05/22/18 05/22/18 05/23/18 06:49 11:23 09:03 WBC RBC Hgb Hct MCHC RDW Plt Count Lymph % (Auto) [place] % (Auto) Lymph # [place] # Seg Neutrophils % Seg Neuts % (Manual) Lymphocytes % (Manual) Seg Neutrophils # Seg Neutrophils # Man Lymphocytes # (Manual) PT INR APTT POC ABG pH POC ABG pCO2 POC ABG pO2 Sodium 134 L Potassium 3.5 L Chloride Carbon Dioxide 21 L BUN 35 H 36 H Creatinine 1.7 H Glucose 107 H POC Glucose Lactic Acid Calcium 7.9 L Phosphorus Magnesium 2.50 H Iron TIBC AST ALT Alkaline Phosphatase Lactate Dehydrogenase Total Creatine Kinase C-Reactive Protein Total Protein Albumin CA 19-9 Antigen Folate PTH Intact Urine WBC (Auto) Urine Creatinine Urine Chloride Urine Total Protein Fluid Glucose Fluid Total Protein Vancomycin Trough Miscellaneous Test Crossmatch See Detail 05/23/18 05/23/18 05/23/18 09:03 09:03 17:34 WBC 26.3 H RBC 3.57 L Hgb 10.4 L Hct 31.1 L D MCHC RDW Plt Count Lymph % (Auto) [place] % (Auto) Lymph # [place] # Seg Neutrophils % Seg Neuts % (Manual) Lymphocytes % (Manual) Seg Neutrophils # Seg Neutrophils # Man Lymphocytes # (Manual) PT 18.3 H INR 1.43 H APTT 40.0 H POC ABG pH POC ABG pCO2 POC ABG pO2 Sodium Potassium Chloride Carbon Dioxide BUN Creatinine Glucose POC Glucose 108 H Lactic Acid Calcium Phosphorus Magnesium Iron TIBC AST ALT Alkaline Phosphatase Lactate Dehydrogenase Total Creatine Kinase C-Reactive Protein Total Protein Albumin CA 19-9 Antigen Folate PTH Intact Urine WBC (Auto) Urine Creatinine Urine Chloride Urine Total Protein Fluid Glucose Fluid Total Protein Vancomycin Trough Miscellaneous Test Crossmatch 05/23/18 05/24/18 05/24/18 21:14 04:43 08:04 WBC RBC Hgb Hct MCHC RDW Plt Count Lymph % (Auto) [place] % (Auto) Lymph # [place] # Seg Neutrophils % Seg Neuts % (Manual) Lymphocytes % (Manual) Seg Neutrophils # Seg Neutrophils # Man Lymphocytes # (Manual) PT INR APTT POC ABG pH POC ABG pCO2 POC ABG pO2 Sodium 146 H Potassium Chloride 108.6 H Carbon Dioxide BUN 33 H Creatinine Glucose 109 H POC Glucose 110 H 106 H Lactic Acid Calcium 8.3 L Phosphorus Magnesium 2.50 H Iron TIBC AST ALT Alkaline Phosphatase Lactate Dehydrogenase Total Creatine Kinase C-Reactive Protein Total Protein Albumin CA 19-9 Antigen Folate PTH Intact Urine WBC (Auto) Urine Creatinine Urine Chloride Urine Total Protein Fluid Glucose Fluid Total Protein Vancomycin Trough Miscellaneous Test Crossmatch 05/25/18 05/25/18 05/25/18 05:42 05:49 19:50 WBC RBC Hgb Hct MCHC RDW Plt Count Lymph % (Auto) [place] % (Auto) Lymph # [place] # Seg Neutrophils % Seg Neuts % (Manual) Lymphocytes % (Manual) Seg Neutrophils # Seg Neutrophils # Man Lymphocytes # (Manual) PT INR APTT POC ABG pH POC ABG pCO2 POC ABG pO2 Sodium 150 H Potassium Chloride 112.5 H Carbon Dioxide BUN 34 H Creatinine Glucose 102 H POC Glucose 107 H Lactic Acid Calcium Phosphorus Magnesium Iron TIBC AST ALT Alkaline Phosphatase Lactate Dehydrogenase Total Creatine Kinase C-Reactive Protein 34.50 H Total Protein Albumin CA 19-9 Antigen Folate PTH Intact Urine WBC (Auto) Urine Creatinine Urine Chloride Urine Total Protein Fluid Glucose Fluid Total Protein Vancomycin Trough Miscellaneous Test Crossmatch 05/25/18 05/25/18 05/25/18 19:50 21:05 22:46 WBC RBC Hgb Hct MCHC RDW Plt Count Lymph % (Auto) [place] % (Auto) Lymph # [place] # Seg Neutrophils % Seg Neuts % (Manual) Lymphocytes % (Manual) Seg Neutrophils # Seg Neutrophils # Man Lymphocytes # (Manual) PT INR APTT POC ABG pH 7.483 H POC ABG pCO2 24.0 L POC ABG pO2 72 L Sodium Potassium Chloride Carbon Dioxide BUN Creatinine Glucose POC Glucose Lactic Acid 5.90 H* Calcium Phosphorus Magnesium Iron TIBC AST ALT Alkaline Phosphatase Lactate Dehydrogenase Total Creatine Kinase C-Reactive Protein Total Protein Albumin CA 19-9 Antigen Folate PTH Intact Urine WBC (Auto) Urine Creatinine Urine Chloride Urine Total Protein Fluid Glucose Fluid Total Protein Vancomycin Trough 25.1 H Miscellaneous Test Crossmatch 05/25/18 05/26/18 05/26/18 22:46 00:21 00:51 WBC RBC Hgb Hct MCHC RDW Plt Count Lymph % (Auto) [place] % (Auto) Lymph # [place] # Seg Neutrophils % Seg Neuts % (Manual) Lymphocytes % (Manual) Seg Neutrophils # Seg Neutrophils # Man Lymphocytes # (Manual) PT INR APTT POC ABG pH POC ABG pCO2 POC ABG pO2 Sodium Potassium Chloride Carbon Dioxide BUN Creatinine Glucose POC Glucose 133 H Lactic Acid 8.10 H* 6.20 H* Calcium Phosphorus Magnesium Iron TIBC AST ALT Alkaline Phosphatase Lactate Dehydrogenase Total Creatine Kinase C-Reactive Protein Total Protein Albumin CA 19-9 Antigen Folate PTH Intact Urine WBC (Auto) Urine Creatinine Urine Chloride Urine Total Protein Fluid Glucose Fluid Total Protein Vancomycin Trough Miscellaneous Test Crossmatch 05/26/18 05/26/18 05/26/18 01:13 02:24 02:24 WBC 18.7 H RBC Hgb 11.6 L Hct MCHC RDW Plt Count Lymph % (Auto) [place] % (Auto) Lymph # [place] # Seg Neutrophils % Seg Neuts % (Manual) Lymphocytes % (Manual) Seg Neutrophils # Seg Neutrophils # Man Lymphocytes # (Manual) PT INR APTT POC ABG pH POC ABG pCO2 POC ABG pO2 Sodium 147 H Potassium 6.2 H* D Chloride 111.9 H Carbon Dioxide 19 L BUN 80 H Creatinine 5.1 H D Glucose 112 H POC Glucose Lactic Acid 5.20 H* Calcium 6.7 L D Phosphorus Magnesium Iron TIBC AST ALT Alkaline Phosphatase Lactate Dehydrogenase Total Creatine Kinase C-Reactive Protein Total Protein Albumin CA 19-9 Antigen Folate PTH Intact Urine WBC (Auto) Urine Creatinine Urine Chloride Urine Total Protein Fluid Glucose Fluid Total Protein Vancomycin Trough Miscellaneous Test Crossmatch 05/26/18 05/26/18 05/26/18 04:20 04:20 05:39 WBC RBC Hgb Hct MCHC RDW Plt Count Lymph % (Auto) [place] % (Auto) Lymph # [place] # Seg Neutrophils % Seg Neuts % (Manual) Lymphocytes % (Manual) Seg Neutrophils # Seg Neutrophils # Man Lymphocytes # (Manual) PT INR APTT POC ABG pH POC ABG pCO2 POC ABG pO2 Sodium 150 H Potassium Chloride 110.0 H Carbon Dioxide 19 L BUN 66 H Creatinine Glucose 166 H POC Glucose 187 H Lactic Acid 5.10 H* Calcium 6.9 L Phosphorus 6.70 H D Magnesium Iron TIBC AST ALT Alkaline Phosphatase Lactate Dehydrogenase Total Creatine Kinase C-Reactive Protein Total Protein Albumin CA 19-9 Antigen Folate PTH Intact Urine WBC (Auto) Urine Creatinine Urine Chloride Urine Total Protein Fluid Glucose Fluid Total Protein Vancomycin Trough Miscellaneous Test Crossmatch 05/26/18 05/26/18 05/26/18 06:02 07:29 11:00 WBC RBC Hgb Hct MCHC RDW Plt Count Lymph % (Auto) [place] % (Auto) Lymph # [place] # Seg Neutrophils % Seg Neuts % (Manual) Lymphocytes % (Manual) Seg Neutrophils # Seg Neutrophils # Man Lymphocytes # (Manual) PT INR APTT POC ABG pH POC ABG pCO2 28.8 L POC ABG pO2 Sodium Potassium Chloride Carbon Dioxide BUN Creatinine Glucose POC Glucose Lactic Acid 4.80 H* 3.80 H* Calcium Phosphorus Magnesium Iron TIBC AST ALT Alkaline Phosphatase Lactate Dehydrogenase Total Creatine Kinase C-Reactive Protein Total Protein Albumin CA 19-9 Antigen Folate PTH Intact Urine WBC (Auto) Urine Creatinine Urine Chloride Urine Total Protein Fluid Glucose Fluid Total Protein Vancomycin Trough Miscellaneous Test Crossmatch 05/26/18 05/26/18 05/26/18 11:01 12:28 18:00 WBC RBC Hgb Hct MCHC RDW Plt Count Lymph % (Auto) [place] % (Auto) Lymph # [place] # Seg Neutrophils % Seg Neuts % (Manual) Lymphocytes % (Manual) Seg Neutrophils # Seg Neutrophils # Man Lymphocytes # (Manual) PT INR APTT POC ABG pH POC ABG pCO2 POC ABG pO2 Sodium 150 H 151 H Potassium 5.3 H D 6.1 H* Chloride 110.3 H 117.0 H Carbon Dioxide 21 L 20 L BUN 75 H 77 H Creatinine 4.3 H D 4.6 H Glucose 161 H POC Glucose 114 H Lactic Acid Calcium 7.5 L 6.7 L Phosphorus Magnesium Iron TIBC AST 1041 H ALT 406 H Alkaline Phosphatase 281 H Lactate Dehydrogenase Total Creatine Kinase C-Reactive Protein Total Protein 4.4 L Albumin 1.3 L CA 19-9 Antigen Folate PTH Intact Urine WBC (Auto) Urine Creatinine Urine Chloride Urine Total Protein Fluid Glucose Fluid Total Protein Vancomycin Trough Miscellaneous Test Crossmatch 05/26/18 05/26/18 05/27/18 18:02 19:17 01:01 WBC 21.7 H RBC 2.70 L Hgb 7.8 L D Hct 24.6 L D MCHC RDW 15.3 H Plt Count Lymph % (Auto) [place] % (Auto) Lymph # [place] # Seg Neutrophils % Seg Neuts % (Manual) 94.0 H Lymphocytes % (Manual) 3.0 L Seg Neutrophils # Seg Neutrophils # Man 20.4 H Lymphocytes # (Manual) 0.7 L PT INR APTT POC ABG pH 7.159 L 7.205 L POC ABG pCO2 54.5 H 53.0 H POC ABG pO2 252 H Sodium Potassium Chloride Carbon Dioxide BUN Creatinine Glucose POC Glucose Lactic Acid Calcium Phosphorus Magnesium Iron TIBC AST ALT Alkaline Phosphatase Lactate Dehydrogenase Total Creatine Kinase C-Reactive Protein Total Protein Albumin CA 19-9 Antigen Folate PTH Intact Urine WBC (Auto) Urine Creatinine Urine Chloride Urine Total Protein Fluid Glucose Fluid Total Protein Vancomycin Trough Miscellaneous Test Crossmatch 05/27/18 05/27/18 05/27/18 05:15 05:15 06:11 WBC 24.9 H RBC 2.86 L Hgb 8.1 L Hct 25.9 L MCHC RDW 15.5 H Plt Count Lymph % (Auto) [place] % (Auto) Lymph # [place] # Seg Neutrophils % Seg Neuts % (Manual) Lymphocytes % (Manual) Seg Neutrophils # Seg Neutrophils # Man Lymphocytes # (Manual) PT INR APTT POC ABG pH 7.265 L POC ABG pCO2 46.2 H POC ABG pO2 111 H Sodium 149 H Potassium 6.9 H* Chloride 113.5 H Carbon Dioxide BUN 89 H Creatinine 5.2 H Glucose 118 H POC Glucose Lactic Acid Calcium 7.0 L Phosphorus 9.70 H D Magnesium Iron TIBC AST 876 H ALT 408 H Alkaline Phosphatase Lactate Dehydrogenase Total Creatine Kinase C-Reactive Protein Total Protein 5.2 L Albumin 1.5 L CA 19-9 Antigen Folate PTH Intact Urine WBC (Auto) Urine Creatinine Urine Chloride Urine Total Protein Fluid Glucose Fluid Total Protein Vancomycin Trough Miscellaneous Test Crossmatch 05/27/18 05/27/18 05/27/18 08:48 10:22 10:22 WBC RBC Hgb Hct MCHC RDW Plt Count Lymph % (Auto) [place] % (Auto) Lymph # [place] # Seg Neutrophils % Seg Neuts % (Manual) Lymphocytes % (Manual) Seg Neutrophils # Seg Neutrophils # Man Lymphocytes # (Manual) PT INR APTT POC ABG pH POC ABG pCO2 POC ABG pO2 Sodium 146 H Potassium 6.1 H* Chloride 108.2 H Carbon Dioxide 21 L BUN 88 H Creatinine 5.6 H Glucose 163 H POC Glucose 164 H Lactic Acid Calcium 6.7 L Phosphorus Magnesium Iron TIBC AST ALT Alkaline Phosphatase Lactate Dehydrogenase Total Creatine Kinase C-Reactive Protein 40.70 H Total Protein Albumin CA 19-9 Antigen Folate PTH Intact Urine WBC (Auto) Urine Creatinine Urine Chloride Urine Total Protein Fluid Glucose Fluid Total Protein Vancomycin Trough Miscellaneous Test Crossmatch 05/27/18 05/27/18 05/27/18 13:02 17:39 23:27 WBC RBC Hgb Hct MCHC RDW Plt Count Lymph % (Auto) [place] % (Auto) Lymph # [place] # Seg Neutrophils % Seg Neuts % (Manual) Lymphocytes % (Manual) Seg Neutrophils # Seg Neutrophils # Man Lymphocytes # (Manual) PT INR APTT POC ABG pH POC ABG pCO2 POC ABG pO2 Sodium Potassium Chloride Carbon Dioxide BUN Creatinine Glucose POC Glucose 59 L 132 H Lactic Acid Calcium Phosphorus Magnesium Iron TIBC AST ALT Alkaline Phosphatase Lactate Dehydrogenase Total Creatine Kinase C-Reactive Protein Total Protein Albumin CA 19-9 Antigen Folate PTH Intact Urine WBC (Auto) Urine Creatinine Urine Chloride Urine Total Protein Fluid Glucose Fluid Total Protein Vancomycin Trough Miscellaneous Test Flexitest 1 H Crossmatch 05/27/18 05/28/18 05/28/18 Unknown 04:32 05:00 WBC RBC Hgb Hct MCHC RDW Plt Count Lymph % (Auto) [place] % (Auto) Lymph # [place] # Seg Neutrophils % Seg Neuts % (Manual) Lymphocytes % (Manual) Seg Neutrophils # Seg Neutrophils # Man Lymphocytes # (Manual) PT INR APTT POC ABG pH POC ABG pCO2 POC ABG pO2 134 H Sodium Potassium Chloride Carbon Dioxide BUN 69 H Creatinine 4.4 H Glucose 118 H POC Glucose Lactic Acid Calcium 8.0 L D Phosphorus 6.80 H D Magnesium Iron TIBC AST ALT Alkaline Phosphatase Lactate Dehydrogenase Total Creatine Kinase C-Reactive Protein Total Protein Albumin CA 19-9 Antigen Folate PTH Intact Urine WBC (Auto) 120.0 H Urine Creatinine Urine Chloride Urine Total Protein Fluid Glucose Fluid Total Protein Vancomycin Trough Miscellaneous Test Crossmatch 05/28/18 05/28/18 05/28/18 05:00 05:27 13:04 WBC 26.5 H RBC 2.69 L Hgb 7.7 L Hct 23.6 L MCHC RDW Plt Count Lymph % (Auto) [place] % (Auto) Lymph # [place] # Seg Neutrophils % Seg Neuts % (Manual) 96.0 H Lymphocytes % (Manual) 0 L Seg Neutrophils # Seg Neutrophils # Man 25.4 H Lymphocytes # (Manual) 0.0 L PT INR APTT POC ABG pH POC ABG pCO2 POC ABG pO2 Sodium Potassium Chloride Carbon Dioxide BUN Creatinine Glucose POC Glucose 128 H 155 H Lactic Acid Calcium Phosphorus Magnesium Iron TIBC AST ALT Alkaline Phosphatase Lactate Dehydrogenase Total Creatine Kinase C-Reactive Protein Total Protein Albumin CA 19-9 Antigen Folate PTH Intact Urine WBC (Auto) Urine Creatinine Urine Chloride Urine Total Protein Fluid Glucose Fluid Total Protein Vancomycin Trough Miscellaneous Test Crossmatch 05/28/18 05/29/18 05/29/18 17:56 03:35 04:00 WBC RBC Hgb Hct MCHC RDW Plt Count Lymph % (Auto) [place] % (Auto) Lymph # [place] # Seg Neutrophils % Seg Neuts % (Manual) Lymphocytes % (Manual) Seg Neutrophils # Seg Neutrophils # Man Lymphocytes # (Manual) PT INR APTT POC ABG pH 7.471 H POC ABG pCO2 POC ABG pO2 78 L Sodium Potassium Chloride Carbon Dioxide BUN 50 H Creatinine 3.9 H Glucose POC Glucose 110 H Lactic Acid Calcium 7.7 L Phosphorus Magnesium 1.50 L Iron TIBC AST 218 H ALT 204 H Alkaline Phosphatase Lactate Dehydrogenase Total Creatine Kinase C-Reactive Protein Total Protein 5.4 L Albumin 1.6 L CA 19-9 Antigen Folate PTH Intact Urine WBC (Auto) Urine Creatinine Urine Chloride Urine Total Protein Fluid Glucose Fluid Total Protein Vancomycin Trough Miscellaneous Test Crossmatch 05/29/18 05/29/18 05/30/18 11:51 23:56 04:54 WBC RBC Hgb Hct MCHC RDW Plt Count Lymph % (Auto) [place] % (Auto) Lymph # [place] # Seg Neutrophils % Seg Neuts % (Manual) Lymphocytes % (Manual) Seg Neutrophils # Seg Neutrophils # Man Lymphocytes # (Manual) PT INR APTT POC ABG pH POC ABG pCO2 POC ABG pO2 Sodium Potassium Chloride Carbon Dioxide BUN Creatinine Glucose POC Glucose 131 H 119 H 115 H Lactic Acid Calcium Phosphorus Magnesium Iron TIBC AST ALT Alkaline Phosphatase Lactate Dehydrogenase Total Creatine Kinase C-Reactive Protein Total Protein Albumin CA 19-9 Antigen Folate PTH Intact Urine WBC (Auto) Urine Creatinine Urine Chloride Urine Total Protein Fluid Glucose Fluid Total Protein Vancomycin Trough Miscellaneous Test Crossmatch 05/30/18 05/30/18 05/30/18 05:07 05:15 05:15 WBC 16.2 H RBC 2.53 L Hgb 7.4 L Hct 21.9 L MCHC RDW Plt Count Lymph % (Auto) [place] % (Auto) Lymph # [place] # Seg Neutrophils % Seg Neuts % (Manual) Lymphocytes % (Manual) Seg Neutrophils # Seg Neutrophils # Man Lymphocytes # (Manual) PT INR APTT POC ABG pH POC ABG pCO2 34.5 L POC ABG pO2 133 H Sodium 135 L Potassium Chloride 97.5 L Carbon Dioxide BUN 69 H Creatinine 5.4 H Glucose 105 H POC Glucose Lactic Acid Calcium 7.5 L Phosphorus 5.30 H D Magnesium Iron TIBC AST ALT Alkaline Phosphatase Lactate Dehydrogenase Total Creatine Kinase C-Reactive Protein Total Protein Albumin CA 19-9 Antigen Folate PTH Intact Urine WBC (Auto) Urine Creatinine Urine Chloride Urine Total Protein Fluid Glucose Fluid Total Protein Vancomycin Trough Miscellaneous Test Crossmatch 05/30/18 05/30/18 05/31/18 12:13 17:10 04:50 WBC 18.7 H RBC 2.86 L Hgb 8.2 L Hct 24.8 L MCHC RDW Plt Count Lymph % (Auto) [place] % (Auto) Lymph # [place] # Seg Neutrophils % Seg Neuts % (Manual) 91.0 H Lymphocytes % (Manual) 2.0 L Seg Neutrophils # Seg Neutrophils # Man 17.0 H Lymphocytes # (Manual) 0.4 L PT INR APTT POC ABG pH POC ABG pCO2 POC ABG pO2 Sodium Potassium Chloride Carbon Dioxide BUN Creatinine Glucose POC Glucose 132 H 122 H Lactic Acid Calcium Phosphorus Magnesium Iron TIBC AST ALT Alkaline Phosphatase Lactate Dehydrogenase Total Creatine Kinase C-Reactive Protein Total Protein Albumin CA 19-9 Antigen Folate PTH Intact Urine WBC (Auto) Urine Creatinine Urine Chloride Urine Total Protein Fluid Glucose Fluid Total Protein Vancomycin Trough Miscellaneous Test Crossmatch 05/31/18 05/31/18 05/31/18 04:50 05:45 11:37 WBC RBC Hgb Hct MCHC RDW Plt Count Lymph % (Auto) [place] % (Auto) Lymph # [place] # Seg Neutrophils % Seg Neuts % (Manual) Lymphocytes % (Manual) Seg Neutrophils # Seg Neutrophils # Man Lymphocytes # (Manual) PT INR APTT POC ABG pH POC ABG pCO2 POC ABG pO2 Sodium 132 L Potassium Chloride 92.4 L Carbon Dioxide BUN 77 H Creatinine 5.9 H Glucose POC Glucose 111 H 136 H Lactic Acid Calcium 7.3 L Phosphorus 6.40 H D Magnesium Iron TIBC AST ALT Alkaline Phosphatase Lactate Dehydrogenase Total Creatine Kinase C-Reactive Protein Total Protein Albumin CA 19-9 Antigen Folate PTH Intact Urine WBC (Auto) Urine Creatinine Urine Chloride Urine Total Protein Fluid Glucose Fluid Total Protein Vancomycin Trough Miscellaneous Test Crossmatch 05/31/18 06/01/18 06/01/18 17:52 00:09 04:00 WBC RBC Hgb Hct MCHC RDW Plt Count Lymph % (Auto) [place] % (Auto) Lymph # [place] # Seg Neutrophils % Seg Neuts % (Manual) Lymphocytes % (Manual) Seg Neutrophils # Seg Neutrophils # Man Lymphocytes # (Manual) PT INR APTT POC ABG pH POC ABG pCO2 POC ABG pO2 Sodium Potassium Chloride 97.5 L Carbon Dioxide BUN 49 H Creatinine 4.2 H Glucose 104 H POC Glucose 115 H 114 H Lactic Acid Calcium 7.3 L Phosphorus 4.70 H D Magnesium Iron TIBC AST ALT Alkaline Phosphatase Lactate Dehydrogenase Total Creatine Kinase C-Reactive Protein Total Protein Albumin CA 19-9 Antigen Folate PTH Intact Urine WBC (Auto) Urine Creatinine Urine Chloride Urine Total Protein Fluid Glucose Fluid Total Protein Vancomycin Trough Miscellaneous Test Crossmatch 06/01/18 06/01/18 06/02/18 11:10 17:56 00:15 WBC RBC Hgb Hct MCHC RDW Plt Count Lymph % (Auto) [place] % (Auto) Lymph # [place] # Seg Neutrophils % Seg Neuts % (Manual) Lymphocytes % (Manual) Seg Neutrophils # Seg Neutrophils # Man Lymphocytes # (Manual) PT INR APTT POC ABG pH POC ABG pCO2 POC ABG pO2 Sodium Potassium Chloride Carbon Dioxide BUN Creatinine Glucose POC Glucose 123 H 126 H 135 H Lactic Acid Calcium Phosphorus Magnesium Iron TIBC AST ALT Alkaline Phosphatase Lactate Dehydrogenase Total Creatine Kinase C-Reactive Protein Total Protein Albumin CA 19-9 Antigen Folate PTH Intact Urine WBC (Auto) Urine Creatinine Urine Chloride Urine Total Protein Fluid Glucose Fluid Total Protein Vancomycin Trough Miscellaneous Test Crossmatch 06/02/18 06/02/18 06/02/18 05:23 12:42 13:05 WBC RBC Hgb Hct MCHC RDW Plt Count Lymph % (Auto) [place] % (Auto) Lymph # [place] # Seg Neutrophils % Seg Neuts % (Manual) Lymphocytes % (Manual) Seg Neutrophils # Seg Neutrophils # Man Lymphocytes # (Manual) PT 17.1 H INR 1.34 H APTT POC ABG pH POC ABG pCO2 POC ABG pO2 Sodium Potassium Chloride Carbon Dioxide BUN Creatinine Glucose POC Glucose 135 H 142 H Lactic Acid Calcium Phosphorus Magnesium Iron TIBC AST ALT Alkaline Phosphatase Lactate Dehydrogenase Total Creatine Kinase C-Reactive Protein Total Protein Albumin CA 19-9 Antigen Folate PTH Intact Urine WBC (Auto) Urine Creatinine Urine Chloride Urine Total Protein Fluid Glucose Fluid Total Protein Vancomycin Trough Miscellaneous Test Crossmatch 06/02/18 06/02/18 06/03/18 Unknown Unknown 00:54 WBC 20.8 H RBC 2.67 L Hgb 7.7 L Hct 23.0 L MCHC RDW Plt Count 500 H Lymph % (Auto) [place] % (Auto) Lymph # [place] # Seg Neutrophils % Seg Neuts % (Manual) Lymphocytes % (Manual) Seg Neutrophils # Seg Neutrophils # Man Lymphocytes # (Manual) PT INR APTT POC ABG pH POC ABG pCO2 POC ABG pO2 Sodium 136 L Potassium 3.5 L Chloride 96.9 L Carbon Dioxide BUN 62 H Creatinine 4.9 H Glucose 133 H POC Glucose 125 H Lactic Acid Calcium 7.2 L Phosphorus 5.00 H Magnesium Iron TIBC AST 46 H ALT 66 H Alkaline Phosphatase Lactate Dehydrogenase Total Creatine Kinase C-Reactive Protein Total Protein 5.7 L Albumin 1.5 L CA 19-9 Antigen Folate PTH Intact Urine WBC (Auto) Urine Creatinine Urine Chloride Urine Total Protein Fluid Glucose Fluid Total Protein Vancomycin Trough Miscellaneous Test Crossmatch 06/03/18 06/03/18 06/03/18 03:31 09:18 09:18 WBC RBC Hgb Hct MCHC RDW Plt Count Lymph % (Auto) [place] % (Auto) Lymph # [place] # Seg Neutrophils % Seg Neuts % (Manual) Lymphocytes % (Manual) Seg Neutrophils # Seg Neutrophils # Man Lymphocytes # (Manual) PT 17.1 H INR 1.34 H APTT POC ABG pH POC ABG pCO2 POC ABG pO2 Sodium 136 L Potassium Chloride Carbon Dioxide BUN 41 H Creatinine 3.4 H Glucose 129 H POC Glucose Lactic Acid Calcium 7.4 L Phosphorus Magnesium Iron TIBC AST ALT Alkaline Phosphatase Lactate Dehydrogenase Total Creatine Kinase C-Reactive Protein 11.10 H Total Protein Albumin CA 19-9 Antigen Folate PTH Intact Urine WBC (Auto) Urine Creatinine Urine Chloride Urine Total Protein Fluid Glucose Fluid Total Protein Vancomycin Trough Miscellaneous Test Crossmatch 06/03/18 06/03/18 06/03/18 16:07 21:18 Unknown WBC RBC Hgb Hct MCHC RDW Plt Count Lymph % (Auto) [place] % (Auto) Lymph # [place] # Seg Neutrophils % Seg Neuts % (Manual) Lymphocytes % (Manual) Seg Neutrophils # Seg Neutrophils # Man Lymphocytes # (Manual) PT INR APTT POC ABG pH POC ABG pCO2 POC ABG pO2 Sodium Potassium Chloride Carbon Dioxide BUN Creatinine Glucose POC Glucose 144 H 128 H Lactic Acid Calcium Phosphorus Magnesium Iron TIBC AST ALT Alkaline Phosphatase Lactate Dehydrogenase Total Creatine Kinase C-Reactive Protein Total Protein Albumin CA 19-9 Antigen Folate PTH Intact Urine WBC (Auto) Urine Creatinine Urine Chloride Urine Total Protein Fluid Glucose 10 L Fluid Total Protein 3.7 L Vancomycin Trough Miscellaneous Test Crossmatch 06/04/18 06/04/18 06/04/18 04:31 06:14 11:38 WBC RBC Hgb Hct MCHC RDW Plt Count Lymph % (Auto) [place] % (Auto) Lymph # [place] # Seg Neutrophils % Seg Neuts % (Manual) Lymphocytes % (Manual) Seg Neutrophils # Seg Neutrophils # Man Lymphocytes # (Manual) PT INR APTT POC ABG pH POC ABG pCO2 POC ABG pO2 Sodium Potassium Chloride Carbon Dioxide BUN 55 H Creatinine 3.7 H Glucose 151 H POC Glucose 145 H 129 H Lactic Acid Calcium 7.8 L Phosphorus 4.60 H Magnesium Iron TIBC AST ALT Alkaline Phosphatase Lactate Dehydrogenase Total Creatine Kinase C-Reactive Protein Total Protein Albumin CA 19-9 Antigen Folate PTH Intact Urine WBC (Auto) Urine Creatinine Urine Chloride Urine Total Protein Fluid Glucose Fluid Total Protein Vancomycin Trough Miscellaneous Test Crossmatch 06/04/18 06/04/18 06/04/18 17:09 20:00 21:29 WBC RBC Hgb 8.8 L Hct 27.3 L MCHC RDW Plt Count Lymph % (Auto) [place] % (Auto) Lymph # [place] # Seg Neutrophils % Seg Neuts % (Manual) Lymphocytes % (Manual) Seg Neutrophils # Seg Neutrophils # Man Lymphocytes # (Manual) PT INR APTT POC ABG pH POC ABG pCO2 POC ABG pO2 Sodium Potassium Chloride Carbon Dioxide BUN Creatinine Glucose POC Glucose 142 H 130 H Lactic Acid Calcium Phosphorus Magnesium Iron TIBC AST ALT Alkaline Phosphatase Lactate Dehydrogenase Total Creatine Kinase C-Reactive Protein Total Protein Albumin CA 19-9 Antigen Folate PTH Intact Urine WBC (Auto) Urine Creatinine Urine Chloride Urine Total Protein Fluid Glucose Fluid Total Protein Vancomycin Trough Miscellaneous Test Crossmatch 06/05/18 06/05/18 06/05/18 06:30 07:00 07:00 WBC 19.3 H RBC 2.94 L Hgb 8.3 L Hct 25.6 L MCHC RDW 15.7 H Plt Count 568 H Lymph % (Auto) 4.7 L [place] % (Auto) Lymph # 0.9 L [place] # 1.1 H Seg Neutrophils % 88.9 H Seg Neuts % (Manual) Lymphocytes % (Manual) Seg Neutrophils # 17.2 H Seg Neutrophils # Man Lymphocytes # (Manual) PT INR APTT POC ABG pH POC ABG pCO2 POC ABG pO2 Sodium Potassium 3.4 L D Chloride Carbon Dioxide BUN 67 H Creatinine 3.6 H Glucose 145 H POC Glucose 153 H Lactic Acid Calcium 7.9 L Phosphorus 4.60 H Magnesium Iron TIBC AST ALT Alkaline Phosphatase Lactate Dehydrogenase Total Creatine Kinase C-Reactive Protein Total Protein Albumin CA 19-9 Antigen Folate PTH Intact Urine WBC (Auto) Urine Creatinine Urine Chloride Urine Total Protein Fluid Glucose Fluid Total Protein Vancomycin Trough Miscellaneous Test Crossmatch 06/05/18 06/05/18 06/06/18 12:10 16:01 06:39 WBC RBC Hgb Hct MCHC RDW Plt Count Lymph % (Auto) [place] % (Auto) Lymph # [place] # Seg Neutrophils % Seg Neuts % (Manual) Lymphocytes % (Manual) Seg Neutrophils # Seg Neutrophils # Man Lymphocytes # (Manual) PT INR APTT POC ABG pH POC ABG pCO2 POC ABG pO2 Sodium Potassium Chloride Carbon Dioxide BUN Creatinine Glucose POC Glucose 150 H 129 H 131 H Lactic Acid Calcium Phosphorus Magnesium Iron TIBC AST ALT Alkaline Phosphatase Lactate Dehydrogenase Total Creatine Kinase C-Reactive Protein Total Protein Albumin CA 19-9 Antigen Folate PTH Intact Urine WBC (Auto) Urine Creatinine Urine Chloride Urine Total Protein Fluid Glucose Fluid Total Protein Vancomycin Trough Miscellaneous Test Crossmatch 06/06/18 06/06/18 06/06/18 07:14 07:14 07:14 WBC 16.5 H RBC 2.84 L Hgb 8.1 L Hct 25.2 L MCHC RDW 16.4 H Plt Count 526 H Lymph % (Auto) 6.5 L [place] % (Auto) Lymph # 1.1 L [place] # 1.2 H Seg Neutrophils % 85.3 H Seg Neuts % (Manual) Lymphocytes % (Manual) Seg Neutrophils # 14.1 H Seg Neutrophils # Man Lymphocytes # (Manual) PT INR APTT POC ABG pH POC ABG pCO2 POC ABG pO2 Sodium Potassium Chloride 109.1 H Carbon Dioxide 21 L BUN 76 H Creatinine 3.5 H Glucose 111 H POC Glucose Lactic Acid Calcium 8.1 L Phosphorus Magnesium Iron TIBC AST ALT Alkaline Phosphatase Lactate Dehydrogenase Total Creatine Kinase C-Reactive Protein 4.70 H Total Protein Albumin CA 19-9 Antigen Folate PTH Intact Urine WBC (Auto) Urine Creatinine Urine Chloride Urine Total Protein Fluid Glucose Fluid Total Protein Vancomycin Trough Miscellaneous Test Crossmatch 06/06/18 06/06/18 06/06/18 11:15 18:00 23:58 WBC RBC Hgb Hct MCHC RDW Plt Count Lymph % (Auto) [place] % (Auto) Lymph # [place] # Seg Neutrophils % Seg Neuts % (Manual) Lymphocytes % (Manual) Seg Neutrophils # Seg Neutrophils # Man Lymphocytes # (Manual) PT INR APTT POC ABG pH POC ABG pCO2 POC ABG pO2 Sodium Potassium Chloride Carbon Dioxide BUN Creatinine Glucose POC Glucose 127 H 130 H 114 H Lactic Acid Calcium Phosphorus Magnesium Iron TIBC AST ALT Alkaline Phosphatase Lactate Dehydrogenase Total Creatine Kinase C-Reactive Protein Total Protein Albumin CA 19-9 Antigen Folate PTH Intact Urine WBC (Auto) Urine Creatinine Urine Chloride Urine Total Protein Fluid Glucose Fluid Total Protein Vancomycin Trough Miscellaneous Test Crossmatch 06/07/18 06/07/18 06/07/18 05:45 05:45 05:54 WBC 15.5 H RBC 2.60 L Hgb 7.4 L Hct 23.1 L MCHC RDW 16.5 H Plt Count 506 H Lymph % (Auto) 5.3 L [place] % (Auto) Lymph # 0.8 L [place] # 1.0 H Seg Neutrophils % 86.6 H Seg Neuts % (Manual) Lymphocytes % (Manual) Seg Neutrophils # 13.4 H Seg Neutrophils # Man Lymphocytes # (Manual) PT INR APTT POC ABG pH POC ABG pCO2 POC ABG pO2 Sodium Potassium Chloride 108.4 H Carbon Dioxide BUN 84 H Creatinine 3.5 H Glucose 119 H POC Glucose 114 H Lactic Acid Calcium 8.1 L Phosphorus 5.10 H Magnesium Iron TIBC AST ALT Alkaline Phosphatase Lactate Dehydrogenase Total Creatine Kinase C-Reactive Protein Total Protein Albumin CA 19-9 Antigen Folate PTH Intact Urine WBC (Auto) Urine Creatinine Urine Chloride Urine Total Protein Fluid Glucose Fluid Total Protein Vancomycin Trough Miscellaneous Test Crossmatch 06/07/18 06/08/18 06/08/18 12:15 05:05 05:24 WBC RBC Hgb Hct MCHC RDW Plt Count Lymph % (Auto) [place] % (Auto) Lymph # [place] # Seg Neutrophils % Seg Neuts % (Manual) Lymphocytes % (Manual) Seg Neutrophils # Seg Neutrophils # Man Lymphocytes # (Manual) PT INR APTT POC ABG pH POC ABG pCO2 POC ABG pO2 Sodium 148 H Potassium Chloride 112.4 H Carbon Dioxide BUN 89 H Creatinine 3.4 H Glucose 120 H POC Glucose 148 H 115 H Lactic Acid Calcium 7.9 L Phosphorus Magnesium Iron TIBC AST ALT Alkaline Phosphatase Lactate Dehydrogenase Total Creatine Kinase C-Reactive Protein Total Protein Albumin CA 19-9 Antigen Folate PTH Intact Urine WBC (Auto) Urine Creatinine Urine Chloride Urine Total Protein Fluid Glucose Fluid Total Protein Vancomycin Trough Miscellaneous Test Crossmatch 06/08/18 06/08/18 06/08/18 21:36 21:43 21:43 WBC RBC 2.98 L Hgb 8.8 L Hct 26.6 L MCHC RDW 16.7 H Plt Count 463 H Lymph % (Auto) 7.9 L [place] % (Auto) Lymph # 0.8 L [place] # Seg Neutrophils % 84.8 H Seg Neuts % (Manual) Lymphocytes % (Manual) Seg Neutrophils # 8.6 H Seg Neutrophils # Man Lymphocytes # (Manual) PT INR APTT POC ABG pH POC ABG pCO2 POC ABG pO2 Sodium Potassium Chloride Carbon Dioxide BUN Creatinine Glucose POC Glucose Lactic Acid Calcium Phosphorus Magnesium Iron TIBC AST ALT Alkaline Phosphatase Lactate Dehydrogenase 297 H Total Creatine Kinase C-Reactive Protein Total Protein Albumin CA 19-9 Antigen 57 H Folate PTH Intact Urine WBC (Auto) Urine Creatinine Urine Chloride Urine Total Protein Fluid Glucose Fluid Total Protein Vancomycin Trough Miscellaneous Test Crossmatch 06/09/18 06/09/18 06/09/18 00:05 05:34 05:50 WBC RBC Hgb Hct MCHC RDW Plt Count Lymph % (Auto) [place] % (Auto) Lymph # [place] # Seg Neutrophils % Seg Neuts % (Manual) Lymphocytes % (Manual) Seg Neutrophils # Seg Neutrophils # Man Lymphocytes # (Manual) PT INR APTT POC ABG pH POC ABG pCO2 POC ABG pO2 Sodium 153 H Potassium Chloride 117.3 H Carbon Dioxide BUN 84 H Creatinine 3.2 H Glucose 117 H POC Glucose 140 H 146 H Lactic Acid Calcium 7.9 L Phosphorus Magnesium Iron TIBC AST ALT Alkaline Phosphatase Lactate Dehydrogenase Total Creatine Kinase C-Reactive Protein Total Protein Albumin CA 19-9 Antigen Folate PTH Intact Urine WBC (Auto) Urine Creatinine Urine Chloride Urine Total Protein Fluid Glucose Fluid Total Protein Vancomycin Trough Miscellaneous Test Crossmatch 06/09/18 06/09/18 06/09/18 05:50 07:37 10:34 WBC RBC 2.32 L Hgb 6.8 L Hct 20.7 L MCHC RDW 16.7 H Plt Count Lymph % (Auto) [place] % (Auto) Lymph # [place] # Seg Neutrophils % Seg Neuts % (Manual) Lymphocytes % (Manual) Seg Neutrophils # Seg Neutrophils # Man Lymphocytes # (Manual) PT INR APTT POC ABG pH POC ABG pCO2 POC ABG pO2 Sodium 149 H Potassium Chloride 114.6 H Carbon Dioxide BUN 84 H Creatinine 3.1 H Glucose 137 H POC Glucose Lactic Acid Calcium 7.7 L Phosphorus Magnesium Iron TIBC AST ALT Alkaline Phosphatase Lactate Dehydrogenase Total Creatine Kinase C-Reactive Protein Total Protein Albumin CA 19-9 Antigen Folate PTH Intact Urine WBC (Auto) Urine Creatinine Urine Chloride Urine Total Protein Fluid Glucose Fluid Total Protein Vancomycin Trough Miscellaneous Test Flexitest 1 H Crossmatch 06/09/18 06/09/18 06/09/18 10:41 11:56 13:24 WBC RBC 2.43 L Hgb 7.2 L Hct 21.6 L MCHC RDW 16.8 H Plt Count Lymph % (Auto) [place] % (Auto) Lymph # [place] # Seg Neutrophils % Seg Neuts % (Manual) Lymphocytes % (Manual) Seg Neutrophils # Seg Neutrophils # Man Lymphocytes # (Manual) PT INR APTT POC ABG pH POC ABG pCO2 POC ABG pO2 Sodium Potassium Chloride Carbon Dioxide BUN Creatinine Glucose POC Glucose 141 H Lactic Acid Calcium Phosphorus Magnesium Iron TIBC AST ALT Alkaline Phosphatase Lactate Dehydrogenase Total Creatine Kinase C-Reactive Protein Total Protein Albumin CA 19-9 Antigen Folate PTH Intact Urine WBC (Auto) Urine Creatinine Urine Chloride Urine Total Protein Fluid Glucose Fluid Total Protein Vancomycin Trough Miscellaneous Test Crossmatch See Detail 06/09/18 06/09/18 06/10/18 18:18 23:13 05:26 WBC RBC Hgb Hct MCHC RDW Plt Count Lymph % (Auto) [place] % (Auto) Lymph # [place] # Seg Neutrophils % Seg Neuts % (Manual) Lymphocytes % (Manual) Seg Neutrophils # Seg Neutrophils # Man Lymphocytes # (Manual) PT INR APTT POC ABG pH POC ABG pCO2 POC ABG pO2 Sodium 148 H Potassium Chloride 114.7 H Carbon Dioxide 21 L BUN 79 H Creatinine 3.2 H Glucose 121 H POC Glucose 156 H 163 H Lactic Acid Calcium 7.8 L Phosphorus Magnesium 1.60 L Iron TIBC AST ALT Alkaline Phosphatase Lactate Dehydrogenase Total Creatine Kinase C-Reactive Protein Total Protein Albumin CA 19-9 Antigen Folate PTH Intact Urine WBC (Auto) Urine Creatinine Urine Chloride Urine Total Protein Fluid Glucose Fluid Total Protein Vancomycin Trough Miscellaneous Test Crossmatch 06/10/18 06/10/18 06/10/18 05:26 05:31 17:15 WBC 11.1 H RBC 3.07 L Hgb 9.1 L Hct 27.6 L D MCHC RDW 17.4 H Plt Count Lymph % (Auto) [place] % (Auto) Lymph # [place] # Seg Neutrophils % Seg Neuts % (Manual) Lymphocytes % (Manual) Seg Neutrophils # Seg Neutrophils # Man Lymphocytes # (Manual) PT INR APTT POC ABG pH POC ABG pCO2 POC ABG pO2 Sodium Potassium Chloride Carbon Dioxide BUN Creatinine Glucose POC Glucose 128 H Lactic Acid Calcium Phosphorus Magnesium Iron TIBC AST ALT Alkaline Phosphatase Lactate Dehydrogenase Total Creatine Kinase C-Reactive Protein 3.60 H Total Protein Albumin CA 19-9 Antigen Folate PTH Intact Urine WBC (Auto) Urine Creatinine Urine Chloride Urine Total Protein Fluid Glucose Fluid Total Protein Vancomycin Trough Miscellaneous Test Crossmatch 06/11/18 06/11/18 06/11/18 01:13 05:41 05:41 WBC 14.6 H RBC 3.40 L Hgb 9.8 L Hct 30.7 L MCHC RDW 18.1 H Plt Count Lymph % (Auto) [place] % (Auto) Lymph # [place] # Seg Neutrophils % Seg Neuts % (Manual) Lymphocytes % (Manual) Seg Neutrophils # Seg Neutrophils # Man Lymphocytes # (Manual) PT INR APTT POC ABG pH POC ABG pCO2 POC ABG pO2 Sodium Potassium Chloride 110.8 H Carbon Dioxide 18 L BUN 77 H Creatinine 3.0 H Glucose 116 H POC Glucose 126 H Lactic Acid Calcium 7.9 L Phosphorus Magnesium Iron TIBC AST ALT Alkaline Phosphatase Lactate Dehydrogenase Total Creatine Kinase C-Reactive Protein Total Protein Albumin CA 19-9 Antigen Folate PTH Intact Urine WBC (Auto) Urine Creatinine Urine Chloride Urine Total Protein Fluid Glucose Fluid Total Protein Vancomycin Trough Miscellaneous Test Crossmatch 06/11/18 06/11/18 06/11/18 06:20 07:41 07:41 WBC RBC Hgb Hct MCHC RDW Plt Count Lymph % (Auto) [place] % (Auto) Lymph # [place] # Seg Neutrophils % Seg Neuts % (Manual) Lymphocytes % (Manual) Seg Neutrophils # Seg Neutrophils # Man Lymphocytes # (Manual) PT INR APTT POC ABG pH POC ABG pCO2 POC ABG pO2 Sodium Potassium Chloride Carbon Dioxide BUN Creatinine Glucose POC Glucose 136 H Lactic Acid Calcium Phosphorus Magnesium Iron TIBC AST ALT Alkaline Phosphatase Lactate Dehydrogenase Total Creatine Kinase C-Reactive Protein Total Protein Albumin CA 19-9 Antigen Folate PTH Intact Urine WBC (Auto) 10.0 H Urine Creatinine 41.2 H Urine Chloride 49.2 L Urine Total Protein 142 H Fluid Glucose Fluid Total Protein Vancomycin Trough Miscellaneous Test Crossmatch 06/11/18 06/12/18 06/12/18 18:35 00:34 04:12 WBC RBC 3.18 L Hgb 9.5 L Hct 28.7 L MCHC RDW 18.5 H Plt Count Lymph % (Auto) 8.1 L [place] % (Auto) Lymph # 0.9 L [place] # Seg Neutrophils % 84.6 H Seg Neuts % (Manual) Lymphocytes % (Manual) Seg Neutrophils # 9.1 H Seg Neutrophils # Man Lymphocytes # (Manual) PT INR APTT POC ABG pH POC ABG pCO2 POC ABG pO2 Sodium Potassium Chloride Carbon Dioxide BUN Creatinine Glucose POC Glucose 125 H 129 H Lactic Acid Calcium Phosphorus Magnesium Iron TIBC AST ALT Alkaline Phosphatase Lactate Dehydrogenase Total Creatine Kinase C-Reactive Protein Total Protein Albumin CA 19-9 Antigen Folate PTH Intact Urine WBC (Auto) Urine Creatinine Urine Chloride Urine Total Protein Fluid Glucose Fluid Total Protein Vancomycin Trough Miscellaneous Test Crossmatch 06/12/18 06/12/18 06/12/18 04:12 06:30 11:43 WBC RBC Hgb Hct MCHC RDW Plt Count Lymph % (Auto) [place] % (Auto) Lymph # [place] # Seg Neutrophils % Seg Neuts % (Manual) Lymphocytes % (Manual) Seg Neutrophils # Seg Neutrophils # Man Lymphocytes # (Manual) PT INR APTT POC ABG pH POC ABG pCO2 POC ABG pO2 Sodium Potassium Chloride 108.5 H Carbon Dioxide 21 L BUN 72 H Creatinine 3.0 H Glucose 122 H POC Glucose 129 H 126 H Lactic Acid Calcium 7.8 L Phosphorus Magnesium Iron TIBC AST 45 H ALT Alkaline Phosphatase 200 H Lactate Dehydrogenase Total Creatine Kinase 34 L C-Reactive Protein Total Protein Albumin 1.7 L CA 19-9 Antigen Folate PTH Intact Urine WBC (Auto) Urine Creatinine Urine Chloride Urine Total Protein Fluid Glucose Fluid Total Protein Vancomycin Trough Miscellaneous Test Crossmatch 06/12/18 06/12/18 06/13/18 16:00 23:56 03:44 WBC RBC Hgb Hct MCHC RDW Plt Count Lymph % (Auto) [place] % (Auto) Lymph # [place] # Seg Neutrophils % Seg Neuts % (Manual) Lymphocytes % (Manual) Seg Neutrophils # Seg Neutrophils # Man Lymphocytes # (Manual) PT INR APTT POC ABG pH POC ABG pCO2 POC ABG pO2 Sodium Potassium Chloride Carbon Dioxide BUN Creatinine Glucose POC Glucose 123 H 128 H 121 H Lactic Acid Calcium Phosphorus Magnesium Iron TIBC AST ALT Alkaline Phosphatase Lactate Dehydrogenase Total Creatine Kinase C-Reactive Protein Total Protein Albumin CA 19-9 Antigen Folate PTH Intact Urine WBC (Auto) Urine Creatinine Urine Chloride Urine Total Protein Fluid Glucose Fluid Total Protein Vancomycin Trough Miscellaneous Test Crossmatch 06/13/18 06/13/18 06/14/18 05:59 11:29 01:08 WBC RBC Hgb Hct MCHC RDW Plt Count Lymph % (Auto) [place] % (Auto) Lymph # [place] # Seg Neutrophils % Seg Neuts % (Manual) Lymphocytes % (Manual) Seg Neutrophils # Seg Neutrophils # Man Lymphocytes # (Manual) PT INR APTT POC ABG pH POC ABG pCO2 POC ABG pO2 Sodium 134 L Potassium Chloride Carbon Dioxide 20 L BUN 69 H Creatinine 2.9 H Glucose 113 H POC Glucose 124 H 128 H Lactic Acid Calcium 7.8 L Phosphorus Magnesium Iron TIBC AST ALT Alkaline Phosphatase Lactate Dehydrogenase Total Creatine Kinase C-Reactive Protein Total Protein Albumin CA 19-9 Antigen Folate PTH Intact Urine WBC (Auto) Urine Creatinine Urine Chloride Urine Total Protein Fluid Glucose Fluid Total Protein Vancomycin Trough Miscellaneous Test Crossmatch 06/14/18 06/14/18 06/14/18 06:42 06:42 09:50 WBC 11.3 H RBC 3.02 L Hgb 8.8 L Hct 27.3 L MCHC RDW 18.6 H Plt Count Lymph % (Auto) [place] % (Auto) Lymph # [place] # Seg Neutrophils % Seg Neuts % (Manual) Lymphocytes % (Manual) Seg Neutrophils # Seg Neutrophils # Man Lymphocytes # (Manual) PT 16.3 H INR 1.24 H APTT POC ABG pH POC ABG pCO2 POC ABG pO2 Sodium 132 L Potassium Chloride Carbon Dioxide 19 L BUN 71 H Creatinine 3.1 H Glucose POC Glucose Lactic Acid Calcium 7.8 L Phosphorus Magnesium Iron TIBC AST ALT Alkaline Phosphatase Lactate Dehydrogenase Total Creatine Kinase C-Reactive Protein Total Protein Albumin CA 19-9 Antigen Folate PTH Intact Urine WBC (Auto) Urine Creatinine Urine Chloride Urine Total Protein Fluid Glucose Fluid Total Protein Vancomycin Trough Miscellaneous Test Crossmatch 06/14/18 06/14/18 06/15/18 12:31 17:04 01:18 WBC RBC Hgb Hct MCHC RDW Plt Count Lymph % (Auto) [place] % (Auto) Lymph # [place] # Seg Neutrophils % Seg Neuts % (Manual) Lymphocytes % (Manual) Seg Neutrophils # Seg Neutrophils # Man Lymphocytes # (Manual) PT INR APTT POC ABG pH POC ABG pCO2 POC ABG pO2 Sodium Potassium Chloride Carbon Dioxide BUN Creatinine Glucose POC Glucose 125 H 109 H 124 H Lactic Acid Calcium Phosphorus Magnesium Iron TIBC AST ALT Alkaline Phosphatase Lactate Dehydrogenase Total Creatine Kinase C-Reactive Protein Total Protein Albumin CA 19-9 Antigen Folate PTH Intact Urine WBC (Auto) Urine Creatinine Urine Chloride Urine Total Protein Fluid Glucose Fluid Total Protein Vancomycin Trough Miscellaneous Test Crossmatch 06/15/18 06/15/18 06/15/18 05:27 06:34 11:42 WBC RBC Hgb Hct MCHC RDW Plt Count Lymph % (Auto) [place] % (Auto) Lymph # [place] # Seg Neutrophils % Seg Neuts % (Manual) Lymphocytes % (Manual) Seg Neutrophils # Seg Neutrophils # Man Lymphocytes # (Manual) PT INR APTT POC ABG pH POC ABG pCO2 POC ABG pO2 Sodium 134 L Potassium Chloride Carbon Dioxide 17 L BUN 77 H Creatinine 3.2 H Glucose 110 H POC Glucose 116 H 131 H Lactic Acid Calcium 8.1 L Phosphorus 6.20 H D Magnesium Iron TIBC AST ALT Alkaline Phosphatase Lactate Dehydrogenase Total Creatine Kinase C-Reactive Protein Total Protein Albumin CA 19-9 Antigen Folate PTH Intact Urine WBC (Auto) Urine Creatinine Urine Chloride Urine Total Protein Fluid Glucose Fluid Total Protein Vancomycin Trough Miscellaneous Test Crossmatch 06/16/18 06/16/18 06/16/18 00:57 05:10 06:07 WBC RBC Hgb Hct MCHC RDW Plt Count Lymph % (Auto) [place] % (Auto) Lymph # [place] # Seg Neutrophils % Seg Neuts % (Manual) Lymphocytes % (Manual) Seg Neutrophils # Seg Neutrophils # Man Lymphocytes # (Manual) PT INR APTT POC ABG pH POC ABG pCO2 POC ABG pO2 Sodium 132 L Potassium Chloride Carbon Dioxide 19 L BUN 83 H Creatinine 3.2 H Glucose 113 H POC Glucose 137 H 109 H Lactic Acid Calcium 7.8 L Phosphorus 6.10 H Magnesium Iron TIBC AST ALT Alkaline Phosphatase Lactate Dehydrogenase Total Creatine Kinase C-Reactive Protein Total Protein Albumin CA 19-9 Antigen Folate PTH Intact Urine WBC (Auto) Urine Creatinine Urine Chloride Urine Total Protein Fluid Glucose Fluid Total Protein Vancomycin Trough Miscellaneous Test Crossmatch Allied health notes reviewed: nursing
[2018-06-16] MEDS: ZOSYN/NS 2.25 GM/50ML 2.25 GM/50 ML BAG IV SCH ×2 (10:03→21:01)
[2018-06-16] MEDS: PEPCID IV SCH (10:03)
[2018-06-16] MEDS: FOLVITE PO SCH (10:03)
[2018-06-16] MEDS: FERROUS SULFATE PO SCH ×2 (10:03→21:12)
--- NOTE | 2018-06-16 10:42 | Progress Note ---
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 Continue pain control PRN Bilateral pneumonia (possibly aspiration) Monitor respiratory status Continue Nebs PRN Continue antibiotic Sepsis Continue Zosyn Acute kidney injury (obstructive uropathy vs contrast nephropathy) was on hemodialysis temporarily. Stable renal function. Dialysis catheter removed as per nephrology Continue to monitor BMP and kidney fuction Had bilateral nephrostomy tubes placed 05/14/[address] Freeman. Acute deep venous thrombosis Anticoagulation previously on hold because of anemia, bilateral nephrostomy tubes and abdominal surgery We will restart anticoagulation -- will check with Heme Start Lovenox SC 1mg/kg BID Moderate to severe protein calorie malnutrition Continue tube feeding Started on diet and tolerating Hypokalemia, now resolved Potassium and mag replacement as needed Anemia due to Chronic illness s/p PRBC transfusion Bilateral moderate pleural effusion, for thoracentesis Plan is for LTAC. Dr. Smiley had lengthy family meeting on 06/09/18. present was Dr. Lopez, Dr. Bass, myself, pillowcase sewer and Karen, from admin, and Patient's sister Adriana and brother. They discussed diagnosis, management and plan and arranged for him to go to LTAC, and later chemotherapy when strong enough. All her questions were answered. Patient is medically stable to go to LTAC. pillowcase sewer working on placement. - Patient Problems (1) Acute renal failure Current Visit: Yes Status: Acute Qualifiers: Acute renal failure type: unspecified Qualified Code(s): N17.9 - Acute kidney failure, unspecified (2) Bilateral pleural effusion Current Visit: Yes Status: Acute (3) Edema Current Visit: Yes Status: Acute Qualifiers: Edema type: unspecified Qualified Code(s): R60.9 - Edema, unspecified (4) Hypertensive urgency, malignant Current Visit: Yes Status: Acute (5) Intestinal obstruction Current Visit: Yes Status: Acute (6) Pelvic mass in male Current Visit: Yes Status: Acute (7) Pneumonia involving left lung Current Visit: Yes Status: Acute (8) Sepsis Current Visit: Yes Status: Acute (9) UTI (urinary tract infection) Current Visit: Yes Status: Acute History Interval history: No new issues overnight. Hospitalist Physical - Constitutional Vitals: Temp Pulse Resp BP Pulse Ox 98.2 F 106 H 20 163/77 95 06/16/18 08:48 06/16/18 08:48 06/16/18 08:48 06/16/18 08:48 06/16/18 08:48 General appearance: Present: no acute distress, well-nourished - EENT Eyes: Present: PERRL, EOM intact ENT: hearing intact, clear oral mucosa, dentition normal - Neck Neck: Present: supple, normal ROM - Respiratory Respiratory effort: normal Respiratory: bilateral: CTA - Cardiovascular Rhythm: regular Heart Sounds: Present: S1 & S2. Absent: gallop, rub - Extremities Extremities: no ischemia, No edema, Full ROM - Abdominal General gastrointestinal: soft, non-tender, non-distended, normal bowel sounds - Integumentary Integumentary: Present: clear, warm, dry - Neurologic Neurologic: CNII-XII intact, moves all extremities Results - Labs CBC & Chem 7: 06/14/18 06:42 06/16/18 05:10 Labs: Laboratory Last Values WBC 11.3 K/mm3 (4.5-11.0) H 06/14/18 06:42 RBC 3.02 M/mm3 (3.65-5.03) L 06/14/18 06:42 Hgb 8.8 gm/dl (11.8-15.2) L 06/14/18 06:42 Hct 27.3 % (35.5-45.6) L 06/14/18 06:42 MCV 90 fl (84-94) 06/14/18 06:42 MCH 29 pg (28-32) 06/14/18 06:42 MCHC 32 % (32-34) 06/14/18 06:42 RDW 18.6 % (13.2-15.2) H 06/14/18 06:42 Plt Count 323 K/mm3 (140-440) 06/14/18 06:42 Lymph % (Auto) 8.1 % (13.4-35.0) L 06/12/18 04:12 [place] % (Auto) 6.1 % (0.0-7.3) 06/12/18 04:12 Eos % (Auto) 0.5 % (0.0-4.3) 06/12/18 04:12 Baso % (Auto) 0.7 % (0.0-1.8) 06/12/18 04:12 Lymph # 0.9 K/mm3 (1.2-5.4) L 06/12/18 04:12 [place] # 0.7 K/mm3 (0.0-0.8) 06/12/18 04:12 Eos # 0.1 K/mm3 (0.0-0.4) 06/12/18 04:12 Baso # 0.1 K/mm3 (0.0-0.1) 06/12/18 04:12 Add Manual Diff Complete 05/31/18 04:50 Total Counted 100 05/31/18 04:50 Seg Neutrophils % 84.6 % (40.0-70.0) H 06/12/18 04:12 Seg Neuts % (Manual) 91.0 % (40.0-70.0) H 05/31/18 04:50 Band Neutrophils % 2.0 % 05/31/18 04:50 Lymphocytes % (Manual) 2.0 % (13.4-35.0) L 05/31/18 04:50 Reactive Lymphs % (Man) 0 % 05/31/18 04:50 Monocytes % (Manual) 2.0 % (0.0-7.3) 05/31/18 04:50 Eosinophils % (Manual) 1.0 % (0.0-4.3) 05/31/18 04:50 Basophils % (Manual) 0 % (0.0-1.8) 05/31/18 04:50 Metamyelocytes % 1.0 % 05/31/18 04:50 Myelocytes % 1.0 % 05/31/18 04:50 Promyelocytes % 0 % 05/31/18 04:50 Blast Cells % 0 % 05/31/18 04:50 Nucleated RBC % Not Reportable 05/31/18 04:50 Seg Neutrophils # 9.1 K/mm3 (1.8-7.7) H 06/12/18 04:12 Seg Neutrophils # Man 17.0 K/mm3 (1.8-7.7) H 05/31/18 04:50 Band Neutrophils # 0.4 K/mm3 05/31/18 04:50 Lymphocytes # (Manual) 0.4 K/mm3 (1.2-5.4) L 05/31/18 04:50 Abs React Lymphs (Man) 0.0 K/mm3 05/31/18 04:50 Monocytes # (Manual) 0.4 K/mm3 (0.0-0.8) 05/31/18 04:50 Eosinophils # (Manual) 0.2 K/mm3 (0.0-0.4) 05/31/18 04:50 Basophils # (Manual) 0.0 K/mm3 (0.0-0.1) 05/31/18 04:50 Metamyelocytes # 0.2 K/mm3 05/31/18 04:50 Myelocytes # 0.2 K/mm3 05/31/18 04:50 Promyelocytes # 0.0 K/mm3 05/31/18 04:50 Blast Cells # 0.0 K/mm3 05/31/18 04:50 WBC Morphology Not Reportable 05/31/18 04:50 Hypersegmented Neuts Not Reportable 05/31/18 04:50 Hyposegmented Neuts Not Reportable 05/31/18 04:50 Hypogranular Neuts Not Reportable 05/31/18 04:50 Smudge Cells Not Reportable 05/31/18 04:50 Toxic Granulation Not Reportable 05/31/18 04:50 Toxic Vacuolation Not Reportable 05/31/18 04:50 Dohle Bodies Not Reportable 05/31/18 04:50 Pelger-Huet Anomaly Not Reportable 05/31/18 04:50 Mahesh Rods Not Reportable 05/31/18 04:50 Platelet Estimate Appears normal 05/31/18 04:50 Clumped Platelets Not Reportable 05/31/18 04:50 Plt Clumps, EDTA Not Reportable 05/31/18 04:50 Large Platelets Not Reportable 05/31/18 04:50 Giant Platelets Not Reportable 05/31/18 04:50 Platelet Satelliting Not Reportable 05/31/18 04:50 Plt Morphology Comment Not Reportable 05/31/18 04:50 RBC Morphology Not Reportable 05/31/18 04:50 Dimorphic RBCs Not Reportable 05/31/18 04:50 Polychromasia Not Reportable 05/31/18 04:50 Hypochromasia Few 05/31/18 04:50 Poikilocytosis Not Reportable 05/31/18 04:50 Anisocytosis 1+ 05/31/18 04:50 Microcytosis Few 05/31/18 04:50 Macrocytosis Not Reportable 05/31/18 04:50 Spherocytes Not Reportable 05/31/18 04:50 Pappenheimer Bodies Not Reportable 05/31/18 04:50 Sickle Cells Not Reportable 05/31/18 04:50 Target Cells Rare 05/31/18 04:50 Tear Drop Cells Not Reportable 05/31/18 04:50 Ovalocytes 1+ 05/31/18 04:50 Helmet Cells Not Reportable 05/31/18 04:50 [place] Bodies Not Reportable 05/31/18 04:50 [place] Rings Not Reportable 05/31/18 04:50 [place] Cells Not Reportable 05/31/18 04:50 Bite Cells Not Reportable 05/31/18 04:50 Crenated Cell Not Reportable 05/31/18 04:50 Elliptocytes Not Reportable 05/31/18 04:50 Acanthocytes (Spur) Not Reportable 05/31/18 04:50 Rouleaux Not Reportable 05/31/18 04:50 Hemoglobin C Crystals Not Reportable 05/31/18 04:50 Schistocytes Not Reportable 05/31/18 04:50 Malaria parasites Not Reportable 05/31/18 04:50 Mk Bodies Not Reportable 05/31/18 04:50 Hem Pathologist Commnt No 05/31/18 04:50 PT 16.3 Sec. (12.2-14.9) H 06/14/18 09:50 INR 1.24 (0.87-1.13) H 06/14/18 09:50 APTT 40.0 Sec. (24.2-36.6) H 05/23/18 09:03 POC ABG pH 7.362 (7.35-7.45) 05/31/18 09:58 POC ABG pCO2 36.4 (35-45) 05/31/18 09:58 POC ABG pO2 101 (80-105) 05/31/18 09:58 POC ABG HCO3 20.7 05/31/18 09:58 POC ABG Total CO2 22 05/31/18 09:58 POC ABG O2 Sat 98 05/31/18 09:58 POC ABG Base Excess -5 05/31/18 09:58 FiO2 40 % 05/31/18 09:58 Sodium 132 mmol/L (137-145) L 06/16/18 05:10 Potassium 4.5 mmol/L (3.6-5.0) 06/16/18 05:10 Chloride 99.1 mmol/L (98-107) 06/16/18 05:10 Carbon Dioxide 19 mmol/L (22-30) L 06/16/18 05:10 Anion Gap 18 mmol/L 06/16/18 05:10 BUN 83 mg/dL (9-20) H 06/16/18 05:10 Creatinine 3.2 mg/dL (0.8-1.5) H 06/16/18 05:10 Estimated GFR 25 ml/min 06/16/18 05:10 BUN/Creatinine Ratio 26 % 06/16/18 05:10 Glucose 113 mg/dL (75-100) H 06/16/18 05:10 POC Glucose 109 (70-105) H 06/16/18 06:07 Hemoglobin A1c 5.7 % (4-6) 05/14/18 05:05 Lactic Acid 3.80 mmol/L (0.7-2.0) H* 05/26/18 11:00 Calcium 7.8 mg/dL (8.4-10.2) L 06/16/18 05:10 Phosphorus 6.10 mg/dL (2.5-4.5) H 06/16/18 05:10 Magnesium 2.20 mg/dL (1.7-2.3) 06/16/18 05:10 Iron 24 ug/dL (49-181) L 05/16/18 07:02 TIBC 160 mcg/dL (250-450) L 05/16/18 07:02 Ferritin 325.8 ng/mL (13.0-400.0) 05/16/18 07:02 Total Bilirubin 0.30 mg/dL (0.1-1.2) 06/12/18 04:12 AST 45 units/L (5-40) H 06/12/18 04:12 ALT 29 units/L (7-56) 06/12/18 04:12 Alkaline Phosphatase 200 units/L (35-129) H 06/12/18 04:12 Lactate Dehydrogenase 297 units/L (91-180) H 06/08/18 21:36 Total Creatine Kinase 34 units/L (55-170) L 06/12/18 04:12 CK-MB (CK-2) 2.3 ng/mL (0.0-4.0) 05/25/18 22:46 CK-MB (CK-2) Rel Index 1.4 (0-4) 05/25/18 22:46 C-Reactive Protein 3.60 mg/dL (0.00-1.30) H 06/10/18 17:15 Total Protein 7.3 g/dL (6.3-8.2) 06/12/18 04:12 Albumin 1.7 g/dL (3.9-5) L 06/12/18 04:12 Albumin/Globulin Ratio 0.3 % 06/12/18 04:12 Triglycerides 112 mg/dL (2-149) 06/03/18 03:31 CA 19-9 Antigen 57 U/mL (<34) H 06/08/18 21:43 Prostate Specific Ag 0.96 ng/mL (0.00-4.00) 05/14/18 13:29 Vitamin B12 359.2 pg/mL (211-911) 05/16/18 07:02 Folate 5.39 ng/mL (7.3-26.0) L 05/16/18 07:02 TSH 3.180 mlU/mL (0.270-4.200) 05/14/18 05:05 PTH Intact 65.37 pg/mL (15-65) H 05/14/18 05:05 Urine Color Yellow (Yellow) 06/11/18 07:41 Urine Turbidity Slightly-cloudy (Clear) 06/11/18 07:41 Urine pH 6.0 (5.0-7.0) 06/11/18 07:41 Ur Specific [place] 1.011 (1.003-1.030) 06/11/18 07:41 Urine Protein 100 mg/dl mg/dL (Negative) 06/11/18 07:41 Urine Glucose (UA) 150 mg/dL (Negative) 06/11/18 07:41 Urine Ketones Neg mg/dL (Negative) 06/11/18 07:41 Urine Blood Sm (Negative) 06/11/18 07:41 Urine Nitrite Neg (Negative) 06/11/18 07:41 Urine Bilirubin Neg (Negative) 06/11/18 07:41 Urine Urobilinogen < 2.0 mg/dL (<2.0) 06/11/18 07:41 Ur Leukocyte Esterase Sm (Negative) 06/11/18 07:41 Urine WBC (Auto) 10.0 /HPF (0.0-6.0) H 06/11/18 07:41 Urine RBC (Auto) 5.0 /HPF (0.0-6.0) 06/11/18 07:41 U Epithel Cells (Auto) 1.0 /HPF (0-13.0) 06/11/18 07:41 Urine Bacteria (Auto) 1+ /HPF (Negative) 06/11/18 07:41 Urine WBC Clumps Few /HPF 05/13/18 19:39 Urine Mucus Few /HPF 06/11/18 07:41 Ur Yeast w [place] Few /HPF 06/11/18 07:41 Urine Yeast ([place]) Few /HPF 06/11/18 07:41 Urine Creatinine 41.2 mg/dL (0.1-20.0) H 06/11/18 07:41 Urine Sodium 79 mmol/L 06/11/18 07:41 Urine Potassium 13.27 mmol/L 06/11/18 07:41 Urine Chloride 49.2 mmolL (110-250) L 06/11/18 07:41 Urine Total Protein 142 mg/dL (5-11.8) H 06/11/18 07:41 Fluid Type Ascitic 06/03/18 Unknown Fluid Color Yellow 06/03/18 Unknown Fluid Appearance Cloudy 06/03/18 Unknown Fluid WBC 71142 /mm3 06/03/18 Unknown Fluid RBC 9 /mm3 06/03/18 Unknown Fluid Seg Neutrophils 98.0 % 06/03/18 Unknown Fluid Lymphocytes 2.0 % 06/03/18 Unknown Fluid Reactive Lymphs 0 % 06/03/18 Unknown Fluid Monocytes 0 % 06/03/18 Unknown Fluid Eosinophils 0 % 06/03/18 Unknown Fluid Basophils 0 % 06/03/18 Unknown Fluid Glucose 10 mg/dL (40-70) L 06/03/18 Unknown Fluid Total Protein 3.7 (15.0-45.0) L 06/03/18 Unknown Fluid Albumin 0.8 g/dL 06/03/18 Unknown Fluid LDH > 51685 06/03/18 Unknown Fluid Amylase 126 06/03/18 Unknown Vancomycin Trough 25.1 ug/mL (5.0-20.0) H 05/25/18 22:46 Random Vancomycin 34.3 ug/mL (0-40.0) 05/26/18 11:01 Urine Opiates Screen Presumptive negative 06/11/18 07:41 Urine Methadone Screen Presumptive negative 06/11/18 07:41 Ur Barbiturates Screen Presumptive negative 06/11/18 07:41 Ur Phencyclidine Scrn Presumptive negative 06/11/18 07:41 Ur Amphetamines Screen Presumptive negative 06/11/18 07:41 U Benzodiazepines Scrn Presumptive negative 06/11/18 07:41 Urine Cocaine Screen Presumptive negative 06/11/18 07:41 U Marijuana (THC) Screen Presumptive negative 06/11/18 07:41 Drugs of Abuse Note Disclamer 06/11/18 07:41 ZEUS Screen Negative (Negative) 05/14/18 05:05 Proteinase 3 (PR3) Ab <1.0 AI (<1.0) 05/14/18 05:05 Myeloperoxidase Ab <1.0 AI (<1.0) 05/14/18 05:05 Complement C3 147 mg/dL (82-185) 05/14/18 05:05 Complement C4 45 mg/dL (15-53) 05/14/18 05:05 Hepatitis A IgM Ab Nonreactive (NonReactive) 05/27/18 13:41 Hep Bs Antigen Non-reactive (Negative) 05/27/18 13:41 Hep B Core IgM Ab Non-reactive (NonReactive) 05/27/18 13:41 Hepatitis C Antibody Non-reactive (NonReactive) 05/27/18 13:41 Miscellaneous Test Flexitest 1 H 06/09/18 07:37 Blood Type O POSITIVE 06/09/18 13:24 Antibody Screen Negative 06/09/18 13:24 Crossmatch See Detail 06/09/18 13:24
--- NOTE | 2018-06-16 12:24 | Hem/Onc Progress Note ---
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 Ultrasound Kidneys showed bilat hydronephrosis CT Abd shows Pelvic mass with multiple large lymph nodes Had bilateral nephrostomy tubes placed 05/14/[address] Freeman. 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 Ct chest was done - CTA - no PE treatment for pneumonia LTAC eval CA - elevated - Patient Problems (1) Pelvic mass in male Current Visit: Yes Status: Acute Subjective Date of service: 06/16/18 Principal diagnosis: sq cell ca of prostate area Interval history: pt had diverting colostomy 05/26 has colostomy on 06/14 - rt chest thoracentesis done Objective - Constitutional Vitals: Last Vital Signs Temp 98.4 F 06/16/18 11:57 Pulse 83 06/16/18 11:57 Resp 22 06/16/18 11:57 BP 110/60 06/16/18 11:57 Pulse Ox 100 06/16/18 11:57 Pain Intensity (0-10): denies any pain Performance status: 3-limited selfcare - EENT ENT: clear oral mucosa Lymph node exam: negative cervical, negative supraclavicular - Respiratory Respiratory: bilateral: CTA (anteriorly) - Cardiovascular Heart Sounds: Present: S1 & S2 Extremities: No edema - Gastrointestinal General gastrointestinal: Present: soft, other (colostomy) Rectal Exam: deferred - Genitourinary Male genitourinary: Present: deferred - Musculoskeletal Musculoskeletal: generalized weakness - Neurologic Neurologic: moves all extremities - Labs Lab Results: Laboratory Results - last 24 hr 06/15/18 06/16/1806/16/18 11:42 00:57 05:10 Sodium 132 L Potassium 4.5 Chloride 99.1 Carbon Dioxide 19 L Anion Gap 18 BUN 83 H Creatinine 3.2 H Estimated GFR 25 BUN/Creatinine Ratio 26 Glucose 113 H POC Glucose 131 H 137 H Calcium 7.8 L Phosphorus 6.10 H Magnesium 2.20 06/16/18 06/16/18 06:07 11:51 Sodium Potassium Chloride Carbon Dioxide Anion Gap BUN Creatinine Estimated GFR BUN/Creatinine Ratio Glucose POC Glucose 109 H 126 H Calcium Phosphorus Magnesium
[2018-06-16] MEDS ORDERED: TPN ADULT 2,016 ML IV SCH (20:00)
[2018-06-16] MEDS: LOVENOX SUB-Q SCH (21:12)
[2018-06-16] MEDS ORDERED: LOVENOX SUB-Q SCH (22:00)
[2018-06-17 06:38] LABS: Calcium 8.1 mg/dL (8.4-10.2); Prealbumin 0.13 g/L (0.200-0.400)
[2018-06-17] MEDS: HumuLIN R SUB-Q SCH ×3 (08:16→19:30)
--- NOTE | 2018-06-17 08:20 | Hem/Onc Progress Note ---
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 Ultrasound Kidneys showed bilat hydronephrosis CT Abd shows Pelvic mass with multiple large lymph nodes Had bilateral nephrostomy tubes placed 05/14/[address] Freeman. 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 Ct chest was done - CTA - no PE treatment for pneumonia LTAC eval CA 19-9 - 57 - elevated PSA not elevated - Patient Problems (1) Pelvic mass in male Current Visit: Yes Status: Acute Subjective Date of service: 06/17/18 Principal diagnosis: sq cell ca - prostate area Interval history: pt had diverting colostomy 05/26 has colostomy on 06/14 - rt chest thoracentesis done 06/17 - pt says sat on the chair - eating Objective - Constitutional Vitals: Last Vital Signs Temp 97.9 F 06/17/18 03:21 Pulse 81 06/17/18 03:21 Resp 18 06/17/18 03:21 BP 111/74 06/17/18 03:21 Pulse Ox 91 06/17/18 03:21 Pain Intensity (0-10): denies any pain General appearance: mild distress Performance status: 3-limited selfcare - EENT ENT: clear oral mucosa Lymph node exam: negative cervical, negative supraclavicular - Neck Neck: other (central line) - Respiratory Respiratory: bilateral: CTA (anteriorly) - Cardiovascular Heart Sounds: Present: S1 & S2 Extremities: No edema - Gastrointestinal General gastrointestinal: Present: soft, other (colostomy) Rectal Exam: deferred - Genitourinary Male genitourinary: Present: deferred - Integumentary Integumentary: warm - Musculoskeletal Musculoskeletal: generalized weakness - Neurologic Neurologic: moves all extremities - Psychiatric Psychiatric: appropriate mood/affect - Labs Lab Results: Laboratory Results - last 24 hr 06/08/18 06/16/18 06/16/18 21:44 11:51 15:46 Sodium Potassium Chloride Carbon Dioxide Anion Gap BUN Creatinine Estimated GFR BUN/Creatinine Ratio Glucose POC Glucose 126 H 127 H Calcium Phosphorus Magnesium Prealbumin Free PSA See scanned result % Free PSA Calc See scanned result Total PSA See scanned result 06/17/18 06/17/18 06/17/18 00:02 05:46 05:52 Sodium 133 L Potassium 4.6 Chloride 100.0 Carbon Dioxide 17 L Anion Gap 21 BUN 87 H Creatinine 3.2 H Estimated GFR 25 BUN/Creatinine Ratio 27 Glucose 82 POC Glucose 107 H 85 Calcium 8.1 L Phosphorus 6.50 H Magnesium 2.10 Prealbumin 0.130 L Free PSA % Free PSA Calc Total PSA
--- NOTE | 2018-06-17 08:25 | Progress Note ---
Assessment and Plan Patient awake. 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 - Patient Problems (1) Sepsis Current Visit: Yes Status: Acute Plan to address problem: Patient is on zosyn. (2) Acute renal failure Current Visit: Yes Status: Acute Qualifiers: Acute renal failure type: unspecified Qualified Code(s): N17.9 - Acute kidney failure, unspecified Plan to address problem: Management as per nephrology. (3) Hypertensive urgency, malignant Current Visit: Yes Status: Acute Plan to address problem: Management as per primary care. (4) Intestinal obstruction Current Visit: Yes Status: Acute Plan to address problem: Management as per primary care and surgery. (5) Pelvic mass in male Current Visit: Yes Status: Acute Plan to address problem: Reported squamous cell CA. Oncology and urology following. (6) UTI (urinary tract infection) Current Visit: Yes Status: Acute Plan to address problem: Patient is on Zosyn. (7) Pneumonia involving left lung Current Visit: Yes Status: Acute Plan to address problem: Patient is on zosyn. (8) Bilateral pleural effusion Current Visit: Yes Status: Acute Plan to address problem: Repeat chest xray reported small pleural egffusions. Subjective Date of service: 06/17/18 Principal diagnosis: sq cell ca - prostate area Interval history: Patient awake. 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 Objective Vital Signs - 12hr 06/16/18 06/16/18 06/16/18 20:43 20:47 23:30 Temperature Pulse Rate 88 81 Respiratory 18 Rate Blood Pressure 145/80 O2 Sat by Pulse 93 93 Oximetry 06/16/18 06/17/18 23:53 03:21 Temperature 97.6 F 97.9 F Pulse Rate 81 81 Respiratory 18 18 Rate Blood Pressure 111/64 111/74 O2 Sat by Pulse 93 91 Oximetry Constitutional: no acute distress, alert, other (chronically ill looking middle aged AAM, normocephalic and atraumatic, ) Eyes: non-icteric ENT: oropharynx moist Neck: supple, no lymphadenopathy, no JVD, other (no thyromegaly) Effort: mildly labored Ascultation: Bilateral: diminished breath sounds, rhonchi (scant in bases) Percussion: Bilateral: not dull Cardiovascular: regular rate and rhythm, other (No R/M) Gastrointestinal: hypoactive bowel sounds, soft, tender (mild), other (Distended ; No palpable HSM, bilateral nephrostomy tubes,Colostomy, ZAKI drain) Integumentary: other (femoral vascath) Extremities: no cyanosis, no edema, pulses normal, no ischemia or petechiae Neurologic: normal mental status, non-focal exam, pupils equal and round, other (weak) Psychiatric: mood appropriate, affect normal CBC and BMP: 06/14/18 06:42 06/17/18 05:52 ABG, PT/INR, D-dimer: ABG POC ABG pH 7.362 (7.35-7.45) 05/31/18 09:58 POC ABG pCO2 36.4 (35-45) 05/31/18 09:58 POC ABG pO2 101 (80-105) 05/31/18 09:58 POC ABG HCO3 20.7 05/31/18 09:58 POC ABG Total CO2 22 05/31/18 09:58 POC ABG O2 Sat 98 05/31/18 09:58 PT/INR, D-dimer PT 16.3 Sec. (12.2-14.9) H 06/14/18 09:50 INR 1.24 (0.87-1.13) H 06/14/18 09:50 Abnormal lab findings: Abnormal Labs 05/13/18 05/13/18 05/13/18 04:27 04:27 19:39 WBC RBC 3.13 L Hgb 9.4 L Hct 26.8 L MCHC 35 H RDW Plt Count Lymph % (Auto) [place] % (Auto) 9.6 H Lymph # [place] # Seg Neutrophils % Seg Neuts % (Manual) Lymphocytes % (Manual) Seg Neutrophils # Seg Neutrophils # Man Lymphocytes # (Manual) PT INR APTT POC ABG pH POC ABG pCO2 POC ABG pO2 Sodium 132 L Potassium 5.5 H Chloride 94.1 L Carbon Dioxide 19 L BUN 72 H Creatinine 14.4 H Glucose POC Glucose Lactic Acid Calcium Phosphorus Magnesium Iron TIBC AST ALT Alkaline Phosphatase Lactate Dehydrogenase Total Creatine Kinase C-Reactive Protein Total Protein Albumin 2.8 L Prealbumin CA 19-9 Antigen Folate PTH Intact Urine WBC (Auto) Urine Creatinine 66.0 H Urine Chloride 27.8 L Urine Total Protein 24 H Fluid Glucose Fluid Total Protein Vancomycin Trough Miscellaneous Test Crossmatch 05/13/18 05/14/18 05/14/18 20:00 05:05 05:05 WBC RBC Hgb Hct MCHC RDW Plt Count Lymph % (Auto) [place] % (Auto) Lymph # [place] # Seg Neutrophils % Seg Neuts % (Manual) Lymphocytes % (Manual) Seg Neutrophils # Seg Neutrophils # Man Lymphocytes # (Manual) PT INR APTT POC ABG pH POC ABG pCO2 POC ABG pO2 Sodium 132 L 131 L Potassium 5.2 H 5.8 H Chloride 93.0 L 95.6 L Carbon Dioxide 19 L 20 L BUN 74 H 81 H Creatinine 15.0 H 16.6 H Glucose 134 H 127 H POC Glucose Lactic Acid Calcium 8.2 L 7.9 L Phosphorus 6.30 H Magnesium Iron TIBC AST ALT Alkaline Phosphatase Lactate Dehydrogenase Total Creatine Kinase 236 H C-Reactive Protein Total Protein Albumin Prealbumin CA 19-9 Antigen Folate PTH Intact 65.37 H Urine WBC (Auto) Urine Creatinine Urine Chloride Urine Total Protein Fluid Glucose Fluid Total Protein Vancomycin Trough Miscellaneous Test Crossmatch 05/14/18 05/14/18 05/14/18 09:28 10:56 13:29 WBC RBC Hgb Hct MCHC RDW Plt Count Lymph % (Auto) [place] % (Auto) Lymph # [place] # Seg Neutrophils % Seg Neuts % (Manual) Lymphocytes % (Manual) Seg Neutrophils # Seg Neutrophils # Man Lymphocytes # (Manual) PT INR APTT 38.2 H POC ABG pH POC ABG pCO2 POC ABG pO2 Sodium Potassium Chloride Carbon Dioxide BUN Creatinine Glucose POC Glucose 127 H 126 H Lactic Acid Calcium Phosphorus Magnesium Iron TIBC AST ALT Alkaline Phosphatase Lactate Dehydrogenase Total Creatine Kinase C-Reactive Protein Total Protein Albumin Prealbumin CA 19-9 Antigen Folate PTH Intact Urine WBC (Auto) Urine Creatinine Urine Chloride Urine Total Protein Fluid Glucose Fluid Total Protein Vancomycin Trough Miscellaneous Test Crossmatch 05/15/18 05/15/18 05/16/18 08:06 08:06 07:02 WBC RBC 2.84 L 2.74 L Hgb 8.5 L 8.5 L Hct 24.2 L 23.5 L MCHC 35 H 36 H RDW Plt Count Lymph % (Auto) [place] % (Auto) 10.4 H 11.0 H Lymph # 1.1 L [place] # 0.9 H Seg Neutrophils % 72.6 H Seg Neuts % (Manual) Lymphocytes % (Manual) Seg Neutrophils # Seg Neutrophils # Man Lymphocytes # (Manual) PT INR APTT POC ABG pH POC ABG pCO2 POC ABG pO2 Sodium Potassium Chloride Carbon Dioxide 19 L BUN 66 H Creatinine 12.0 H Glucose 115 H POC Glucose Lactic Acid Calcium 8.1 L Phosphorus Magnesium Iron TIBC AST ALT Alkaline Phosphatase Lactate Dehydrogenase Total Creatine Kinase C-Reactive Protein Total Protein Albumin Prealbumin CA 19-9 Antigen Folate PTH Intact Urine WBC (Auto) Urine Creatinine Urine Chloride Urine Total Protein Fluid Glucose Fluid Total Protein Vancomycin Trough Miscellaneous Test Crossmatch 05/16/18 05/16/18 05/17/18 07:02 07:02 05:08 WBC RBC 2.78 L Hgb 8.2 L Hct 23.9 L MCHC RDW Plt Count Lymph % (Auto) [place] % (Auto) 13.9 H Lymph # [place] # 0.9 H Seg Neutrophils % Seg Neuts % (Manual) Lymphocytes % (Manual) Seg Neutrophils # Seg Neutrophils # Man Lymphocytes # (Manual) PT INR APTT POC ABG pH POC ABG pCO2 POC ABG pO2 Sodium Potassium Chloride Carbon Dioxide BUN 28 H Creatinine 2.4 H D Glucose POC Glucose Lactic Acid Calcium 8.3 L Phosphorus Magnesium 1.50 L Iron 24 L TIBC 160 L AST ALT Alkaline Phosphatase Lactate Dehydrogenase Total Creatine Kinase C-Reactive Protein Total Protein Albumin Prealbumin CA 19-9 Antigen Folate 5.39 L PTH Intact Urine WBC (Auto) Urine Creatinine Urine Chloride Urine Total Protein Fluid Glucose Fluid Total Protein Vancomycin Trough Miscellaneous Test Crossmatch 05/17/18 05/18/18 05/18/18 05:08 05:57 05:57 WBC RBC 2.79 L Hgb 8.3 L Hct 24.0 L MCHC 35 H RDW Plt Count Lymph % (Auto) [place] % (Auto) 11.8 H Lymph # [place] # 0.9 H Seg Neutrophils % Seg Neuts % (Manual) Lymphocytes % (Manual) Seg Neutrophils # Seg Neutrophils # Man Lymphocytes # (Manual) PT INR APTT POC ABG pH POC ABG pCO2 POC ABG pO2 Sodium Potassium Chloride Carbon Dioxide BUN Creatinine Glucose POC Glucose Lactic Acid Calcium 7.7 L 8.0 L Phosphorus Magnesium 1.60 L Iron TIBC AST ALT Alkaline Phosphatase Lactate Dehydrogenase Total Creatine Kinase C-Reactive Protein Total Protein Albumin Prealbumin CA 19-9 Antigen Folate PTH Intact Urine WBC (Auto) Urine Creatinine Urine Chloride Urine Total Protein Fluid Glucose Fluid Total Protein Vancomycin Trough Miscellaneous Test Crossmatch 05/19/18 05/19/18 05/20/18 05:33 05:33 05:38 WBC RBC 2.95 L Hgb 8.8 L Hct 25.8 L MCHC RDW Plt Count Lymph % (Auto) 10.1 L [place] % (Auto) Lymph # 1.1 L [place] # Seg Neutrophils % 85.2 H Seg Neuts % (Manual) Lymphocytes % (Manual) Seg Neutrophils # 9.0 H Seg Neutrophils # Man Lymphocytes # (Manual) PT INR APTT POC ABG pH POC ABG pCO2 POC ABG pO2 Sodium 135 L Potassium Chloride Carbon Dioxide BUN Creatinine Glucose 132 H POC Glucose Lactic Acid Calcium 7.8 L 8.3 L Phosphorus Magnesium 1.40 L Iron TIBC AST ALT Alkaline Phosphatase Lactate Dehydrogenase Total Creatine Kinase C-Reactive Protein Total Protein Albumin Prealbumin CA 19-9 Antigen Folate PTH Intact Urine WBC (Auto) Urine Creatinine Urine Chloride Urine Total Protein Fluid Glucose Fluid Total Protein Vancomycin Trough Miscellaneous Test Crossmatch 05/21/18 05/21/18 05/22/18 04:46 15:30 06:49 WBC 20.0 H RBC 2.70 L Hgb 7.8 L Hct 23.3 L MCHC RDW Plt Count Lymph % (Auto) [place] % (Auto) Lymph # [place] # Seg Neutrophils % Seg Neuts % (Manual) 85.0 H Lymphocytes % (Manual) 4.0 L Seg Neutrophils # Seg Neutrophils # Man 17.0 H Lymphocytes # (Manual) 0.8 L PT INR APTT POC ABG pH POC ABG pCO2 POC ABG pO2 Sodium 135 L Potassium 3.5 L Chloride Carbon Dioxide 21 L BUN 22 H Creatinine Glucose POC Glucose Lactic Acid Calcium 8.1 L Phosphorus Magnesium Iron TIBC AST ALT Alkaline Phosphatase Lactate Dehydrogenase Total Creatine Kinase C-Reactive Protein Total Protein Albumin Prealbumin CA 19-9 Antigen Folate PTH Intact Urine WBC (Auto) 28.0 H Urine Creatinine Urine Chloride Urine Total Protein Fluid Glucose Fluid Total Protein Vancomycin Trough Miscellaneous Test Crossmatch 05/22/18 05/22/18 05/23/18 06:49 11:23 09:03 WBC RBC Hgb Hct MCHC RDW Plt Count Lymph % (Auto) [place] % (Auto) Lymph # [place] # Seg Neutrophils % Seg Neuts % (Manual) Lymphocytes % (Manual) Seg Neutrophils # Seg Neutrophils # Man Lymphocytes # (Manual) PT INR APTT POC ABG pH POC ABG pCO2 POC ABG pO2 Sodium 134 L Potassium 3.5 L Chloride Carbon Dioxide 21 L BUN 35 H 36 H Creatinine 1.7 H Glucose 107 H POC Glucose Lactic Acid Calcium 7.9 L Phosphorus Magnesium 2.50 H Iron TIBC AST ALT Alkaline Phosphatase Lactate Dehydrogenase Total Creatine Kinase C-Reactive Protein Total Protein Albumin Prealbumin CA 19-9 Antigen Folate PTH Intact Urine WBC (Auto) Urine Creatinine Urine Chloride Urine Total Protein Fluid Glucose Fluid Total Protein Vancomycin Trough Miscellaneous Test Crossmatch See Detail 05/23/18 05/23/18 05/23/18 09:03 09:03 17:34 WBC 26.3 H RBC 3.57 L Hgb 10.4 L Hct 31.1 L D MCHC RDW Plt Count Lymph % (Auto) [place] % (Auto) Lymph # [place] # Seg Neutrophils % Seg Neuts % (Manual) Lymphocytes % (Manual) Seg Neutrophils # Seg Neutrophils # Man Lymphocytes # (Manual) PT 18.3 H INR 1.43 H APTT 40.0 H POC ABG pH POC ABG pCO2 POC ABG pO2 Sodium Potassium Chloride Carbon Dioxide BUN Creatinine Glucose POC Glucose 108 H Lactic Acid Calcium Phosphorus Magnesium Iron TIBC AST ALT Alkaline Phosphatase Lactate Dehydrogenase Total Creatine Kinase C-Reactive Protein Total Protein Albumin Prealbumin CA 19-9 Antigen Folate PTH Intact Urine WBC (Auto) Urine Creatinine Urine Chloride Urine Total Protein Fluid Glucose Fluid Total Protein Vancomycin Trough Miscellaneous Test Crossmatch 05/23/18 05/24/18 05/24/18 21:14 04:43 08:04 WBC RBC Hgb Hct MCHC RDW Plt Count Lymph % (Auto) [place] % (Auto) Lymph # [place] # Seg Neutrophils % Seg Neuts % (Manual) Lymphocytes % (Manual) Seg Neutrophils # Seg Neutrophils # Man Lymphocytes # (Manual) PT INR APTT POC ABG pH POC ABG pCO2 POC ABG pO2 Sodium 146 H Potassium Chloride 108.6 H Carbon Dioxide BUN 33 H Creatinine Glucose 109 H POC Glucose 110 H 106 H Lactic Acid Calcium 8.3 L Phosphorus Magnesium 2.50 H Iron TIBC AST ALT Alkaline Phosphatase Lactate Dehydrogenase Total Creatine Kinase C-Reactive Protein Total Protein Albumin Prealbumin CA 19-9 Antigen Folate PTH Intact Urine WBC (Auto) Urine Creatinine Urine Chloride Urine Total Protein Fluid Glucose Fluid Total Protein Vancomycin Trough Miscellaneous Test Crossmatch 05/25/18 05/25/18 05/25/18 05:42 05:49 19:50 WBC RBC Hgb Hct MCHC RDW Plt Count Lymph % (Auto) [place] % (Auto) Lymph # [place] # Seg Neutrophils % Seg Neuts % (Manual) Lymphocytes % (Manual) Seg Neutrophils # Seg Neutrophils # Man Lymphocytes # (Manual) PT INR APTT POC ABG pH POC ABG pCO2 POC ABG pO2 Sodium 150 H Potassium Chloride 112.5 H Carbon Dioxide BUN 34 H Creatinine Glucose 102 H POC Glucose 107 H Lactic Acid Calcium Phosphorus Magnesium Iron TIBC AST ALT Alkaline Phosphatase Lactate Dehydrogenase Total Creatine Kinase C-Reactive Protein 34.50 H Total Protein Albumin Prealbumin CA 19-9 Antigen Folate PTH Intact Urine WBC (Auto) Urine Creatinine Urine Chloride Urine Total Protein Fluid Glucose Fluid Total Protein Vancomycin Trough Miscellaneous Test Crossmatch 05/25/18 05/25/18 05/25/18 19:50 21:05 22:46 WBC RBC Hgb Hct MCHC RDW Plt Count Lymph % (Auto) [place] % (Auto) Lymph # [place] # Seg Neutrophils % Seg Neuts % (Manual) Lymphocytes % (Manual) Seg Neutrophils # Seg Neutrophils # Man Lymphocytes # (Manual) PT INR APTT POC ABG pH 7.483 H POC ABG pCO2 24.0 L POC ABG pO2 72 L Sodium Potassium Chloride Carbon Dioxide BUN Creatinine Glucose POC Glucose Lactic Acid 5.90 H* Calcium Phosphorus Magnesium Iron TIBC AST ALT Alkaline Phosphatase Lactate Dehydrogenase Total Creatine Kinase C-Reactive Protein Total Protein Albumin Prealbumin CA 19-9 Antigen Folate PTH Intact Urine WBC (Auto) Urine Creatinine Urine Chloride Urine Total Protein Fluid Glucose Fluid Total Protein Vancomycin Trough 25.1 H Miscellaneous Test Crossmatch 05/25/18 05/26/18 05/26/18 22:46 00:21 00:51 WBC RBC Hgb Hct MCHC RDW Plt Count Lymph % (Auto) [place] % (Auto) Lymph # [place] # Seg Neutrophils % Seg Neuts % (Manual) Lymphocytes % (Manual) Seg Neutrophils # Seg Neutrophils # Man Lymphocytes # (Manual) PT INR APTT POC ABG pH POC ABG pCO2 POC ABG pO2 Sodium Potassium Chloride Carbon Dioxide BUN Creatinine Glucose POC Glucose 133 H Lactic Acid 8.10 H* 6.20 H* Calcium Phosphorus Magnesium Iron TIBC AST ALT Alkaline Phosphatase Lactate Dehydrogenase Total Creatine Kinase C-Reactive Protein Total Protein Albumin Prealbumin CA 19-9 Antigen Folate PTH Intact Urine WBC (Auto) Urine Creatinine Urine Chloride Urine Total Protein Fluid Glucose Fluid Total Protein Vancomycin Trough Miscellaneous Test Crossmatch 05/26/18 05/26/18 05/26/18 01:13 02:24 02:24 WBC 18.7 H RBC Hgb 11.6 L Hct MCHC RDW Plt Count Lymph % (Auto) [place] % (Auto) Lymph # [place] # Seg Neutrophils % Seg Neuts % (Manual) Lymphocytes % (Manual) Seg Neutrophils # Seg Neutrophils # Man Lymphocytes # (Manual) PT INR APTT POC ABG pH POC ABG pCO2 POC ABG pO2 Sodium 147 H Potassium 6.2 H* D Chloride 111.9 H Carbon Dioxide 19 L BUN 80 H Creatinine 5.1 H D Glucose 112 H POC Glucose Lactic Acid 5.20 H* Calcium 6.7 L D Phosphorus Magnesium Iron TIBC AST ALT Alkaline Phosphatase Lactate Dehydrogenase Total Creatine Kinase C-Reactive Protein Total Protein Albumin Prealbumin CA 19-9 Antigen Folate PTH Intact Urine WBC (Auto) Urine Creatinine Urine Chloride Urine Total Protein Fluid Glucose Fluid Total Protein Vancomycin Trough Miscellaneous Test Crossmatch 05/26/18 05/26/18 05/26/18 04:20 04:20 05:39 WBC RBC Hgb Hct MCHC RDW Plt Count Lymph % (Auto) [place] % (Auto) Lymph # [place] # Seg Neutrophils % Seg Neuts % (Manual) Lymphocytes % (Manual) Seg Neutrophils # Seg Neutrophils # Man Lymphocytes # (Manual) PT INR APTT POC ABG pH POC ABG pCO2 POC ABG pO2 Sodium 150 H Potassium Chloride 110.0 H Carbon Dioxide 19 L BUN 66 H Creatinine Glucose 166 H POC Glucose 187 H Lactic Acid 5.10 H* Calcium 6.9 L Phosphorus 6.70 H D Magnesium Iron TIBC AST ALT Alkaline Phosphatase Lactate Dehydrogenase Total Creatine Kinase C-Reactive Protein Total Protein Albumin Prealbumin CA 19-9 Antigen Folate PTH Intact Urine WBC (Auto) Urine Creatinine Urine Chloride Urine Total Protein Fluid Glucose Fluid Total Protein Vancomycin Trough Miscellaneous Test Crossmatch 05/26/18 05/26/18 05/26/18 06:02 07:29 11:00 WBC RBC Hgb Hct MCHC RDW Plt Count Lymph % (Auto) [place] % (Auto) Lymph # [place] # Seg Neutrophils % Seg Neuts % (Manual) Lymphocytes % (Manual) Seg Neutrophils # Seg Neutrophils # Man Lymphocytes # (Manual) PT INR APTT POC ABG pH POC ABG pCO2 28.8 L POC ABG pO2 Sodium Potassium Chloride Carbon Dioxide BUN Creatinine Glucose POC Glucose Lactic Acid 4.80 H* 3.80 H* Calcium Phosphorus Magnesium Iron TIBC AST ALT Alkaline Phosphatase Lactate Dehydrogenase Total Creatine Kinase C-Reactive Protein Total Protein Albumin Prealbumin CA 19-9 Antigen Folate PTH Intact Urine WBC (Auto) Urine Creatinine Urine Chloride Urine Total Protein Fluid Glucose Fluid Total Protein Vancomycin Trough Miscellaneous Test Crossmatch 05/26/18 05/26/18 05/26/18 11:01 12:28 18:00 WBC RBC Hgb Hct MCHC RDW Plt Count Lymph % (Auto) [place] % (Auto) Lymph # [place] # Seg Neutrophils % Seg Neuts % (Manual) Lymphocytes % (Manual) Seg Neutrophils # Seg Neutrophils # Man Lymphocytes # (Manual) PT INR APTT POC ABG pH POC ABG pCO2 POC ABG pO2 Sodium 150 H 151 H Potassium 5.3 H D 6.1 H* Chloride 110.3 H 117.0 H Carbon Dioxide 21 L 20 L BUN 75 H 77 H Creatinine 4.3 H D 4.6 H Glucose 161 H POC Glucose 114 H Lactic Acid Calcium 7.5 L 6.7 L Phosphorus Magnesium Iron TIBC AST 1041 H ALT 406 H Alkaline Phosphatase 281 H Lactate Dehydrogenase Total Creatine Kinase C-Reactive Protein Total Protein 4.4 L Albumin 1.3 L Prealbumin CA 19-9 Antigen Folate PTH Intact Urine WBC (Auto) Urine Creatinine Urine Chloride Urine Total Protein Fluid Glucose Fluid Total Protein Vancomycin Trough Miscellaneous Test Crossmatch 05/26/18 05/26/18 05/27/18 18:02 19:17 01:01 WBC 21.7 H RBC 2.70 L Hgb 7.8 L D Hct 24.6 L D MCHC RDW 15.3 H Plt Count Lymph % (Auto) [place] % (Auto) Lymph # [place] # Seg Neutrophils % Seg Neuts % (Manual) 94.0 H Lymphocytes % (Manual) 3.0 L Seg Neutrophils # Seg Neutrophils # Man 20.4 H Lymphocytes # (Manual) 0.7 L PT INR APTT POC ABG pH 7.159 L 7.205 L POC ABG pCO2 54.5 H 53.0 H POC ABG pO2 252 H Sodium Potassium Chloride Carbon Dioxide BUN Creatinine Glucose POC Glucose Lactic Acid Calcium Phosphorus Magnesium Iron TIBC AST ALT Alkaline Phosphatase Lactate Dehydrogenase Total Creatine Kinase C-Reactive Protein Total Protein Albumin Prealbumin CA 19-9 Antigen Folate PTH Intact Urine WBC (Auto) Urine Creatinine Urine Chloride Urine Total Protein Fluid Glucose Fluid Total Protein Vancomycin Trough Miscellaneous Test Crossmatch 05/27/18 05/27/18 05/27/18 05:15 05:15 06:11 WBC 24.9 H RBC 2.86 L Hgb 8.1 L Hct 25.9 L MCHC RDW 15.5 H Plt Count Lymph % (Auto) [place] % (Auto) Lymph # [place] # Seg Neutrophils % Seg Neuts % (Manual) Lymphocytes % (Manual) Seg Neutrophils # Seg Neutrophils # Man Lymphocytes # (Manual) PT INR APTT POC ABG pH 7.265 L POC ABG pCO2 46.2 H POC ABG pO2 111 H Sodium 149 H Potassium 6.9 H* Chloride 113.5 H Carbon Dioxide BUN 89 H Creatinine 5.2 H Glucose 118 H POC Glucose Lactic Acid Calcium 7.0 L Phosphorus 9.70 H D Magnesium Iron TIBC AST 876 H ALT 408 H Alkaline Phosphatase Lactate Dehydrogenase Total Creatine Kinase C-Reactive Protein Total Protein 5.2 L Albumin 1.5 L Prealbumin CA 19-9 Antigen Folate PTH Intact Urine WBC (Auto) Urine Creatinine Urine Chloride Urine Total Protein Fluid Glucose Fluid Total Protein Vancomycin Trough Miscellaneous Test Crossmatch 05/27/18 05/27/18 05/27/18 08:48 10:22 10:22 WBC RBC Hgb Hct MCHC RDW Plt Count Lymph % (Auto) [place] % (Auto) Lymph # [place] # Seg Neutrophils % Seg Neuts % (Manual) Lymphocytes % (Manual) Seg Neutrophils # Seg Neutrophils # Man Lymphocytes # (Manual) PT INR APTT POC ABG pH POC ABG pCO2 POC ABG pO2 Sodium 146 H Potassium 6.1 H* Chloride 108.2 H Carbon Dioxide 21 L BUN 88 H Creatinine 5.6 H Glucose 163 H POC Glucose 164 H Lactic Acid Calcium 6.7 L Phosphorus Magnesium Iron TIBC AST ALT Alkaline Phosphatase Lactate Dehydrogenase Total Creatine Kinase C-Reactive Protein 40.70 H Total Protein Albumin Prealbumin CA 19-9 Antigen Folate PTH Intact Urine WBC (Auto) Urine Creatinine Urine Chloride Urine Total Protein Fluid Glucose Fluid Total Protein Vancomycin Trough Miscellaneous Test Crossmatch 05/27/18 05/27/18 05/27/18 13:02 17:39 23:27 WBC RBC Hgb Hct MCHC RDW Plt Count Lymph % (Auto) [place] % (Auto) Lymph # [place] # Seg Neutrophils % Seg Neuts % (Manual) Lymphocytes % (Manual) Seg Neutrophils # Seg Neutrophils # Man Lymphocytes # (Manual) PT INR APTT POC ABG pH POC ABG pCO2 POC ABG pO2 Sodium Potassium Chloride Carbon Dioxide BUN Creatinine Glucose POC Glucose 59 L 132 H Lactic Acid Calcium Phosphorus Magnesium Iron TIBC AST ALT Alkaline Phosphatase Lactate Dehydrogenase Total Creatine Kinase C-Reactive Protein Total Protein Albumin Prealbumin CA 19-9 Antigen Folate PTH Intact Urine WBC (Auto) Urine Creatinine Urine Chloride Urine Total Protein Fluid Glucose Fluid Total Protein Vancomycin Trough Miscellaneous Test Flexitest 1 H Crossmatch 05/27/18 05/28/18 05/28/18 Unknown 04:32 05:00 WBC RBC Hgb Hct MCHC RDW Plt Count Lymph % (Auto) [place] % (Auto) Lymph # [place] # Seg Neutrophils % Seg Neuts % (Manual) Lymphocytes % (Manual) Seg Neutrophils # Seg Neutrophils # Man Lymphocytes # (Manual) PT INR APTT POC ABG pH POC ABG pCO2 POC ABG pO2 134 H Sodium Potassium Chloride Carbon Dioxide BUN 69 H Creatinine 4.4 H Glucose 118 H POC Glucose Lactic Acid Calcium 8.0 L D Phosphorus 6.80 H D Magnesium Iron TIBC AST ALT Alkaline Phosphatase Lactate Dehydrogenase Total Creatine Kinase C-Reactive Protein Total Protein Albumin Prealbumin CA 19-9 Antigen Folate PTH Intact Urine WBC (Auto) 120.0 H Urine Creatinine Urine Chloride Urine Total Protein Fluid Glucose Fluid Total Protein Vancomycin Trough Miscellaneous Test Crossmatch 05/28/18 05/28/18 05/28/18 05:00 05:27 13:04 WBC 26.5 H RBC 2.69 L Hgb 7.7 L Hct 23.6 L MCHC RDW Plt Count Lymph % (Auto) [place] % (Auto) Lymph # [place] # Seg Neutrophils % Seg Neuts % (Manual) 96.0 H Lymphocytes % (Manual) 0 L Seg Neutrophils # Seg Neutrophils # Man 25.4 H Lymphocytes # (Manual) 0.0 L PT INR APTT POC ABG pH POC ABG pCO2 POC ABG pO2 Sodium Potassium Chloride Carbon Dioxide BUN Creatinine Glucose POC Glucose 128 H 155 H Lactic Acid Calcium Phosphorus Magnesium Iron TIBC AST ALT Alkaline Phosphatase Lactate Dehydrogenase Total Creatine Kinase C-Reactive Protein Total Protein Albumin Prealbumin CA 19-9 Antigen Folate PTH Intact Urine WBC (Auto) Urine Creatinine Urine Chloride Urine Total Protein Fluid Glucose Fluid Total Protein Vancomycin Trough Miscellaneous Test Crossmatch 05/28/18 05/29/18 05/29/18 17:56 03:35 04:00 WBC RBC Hgb Hct MCHC RDW Plt Count Lymph % (Auto) [place] % (Auto) Lymph # [place] # Seg Neutrophils % Seg Neuts % (Manual) Lymphocytes % (Manual) Seg Neutrophils # Seg Neutrophils # Man Lymphocytes # (Manual) PT INR APTT POC ABG pH 7.471 H POC ABG pCO2 POC ABG pO2 78 L Sodium Potassium Chloride Carbon Dioxide BUN 50 H Creatinine 3.9 H Glucose POC Glucose 110 H Lactic Acid Calcium 7.7 L Phosphorus Magnesium 1.50 L Iron TIBC AST 218 H ALT 204 H Alkaline Phosphatase Lactate Dehydrogenase Total Creatine Kinase C-Reactive Protein Total Protein 5.4 L Albumin 1.6 L Prealbumin CA 19-9 Antigen Folate PTH Intact Urine WBC (Auto) Urine Creatinine Urine Chloride Urine Total Protein Fluid Glucose Fluid Total Protein Vancomycin Trough Miscellaneous Test Crossmatch 05/29/18 05/29/18 05/30/18 11:51 23:56 04:54 WBC RBC Hgb Hct MCHC RDW Plt Count Lymph % (Auto) [place] % (Auto) Lymph # [place] # Seg Neutrophils % Seg Neuts % (Manual) Lymphocytes % (Manual) Seg Neutrophils # Seg Neutrophils # Man Lymphocytes # (Manual) PT INR APTT POC ABG pH POC ABG pCO2 POC ABG pO2 Sodium Potassium Chloride Carbon Dioxide BUN Creatinine Glucose POC Glucose 131 H 119 H 115 H Lactic Acid Calcium Phosphorus Magnesium Iron TIBC AST ALT Alkaline Phosphatase Lactate Dehydrogenase Total Creatine Kinase C-Reactive Protein Total Protein Albumin Prealbumin CA 19-9 Antigen Folate PTH Intact Urine WBC (Auto) Urine Creatinine Urine Chloride Urine Total Protein Fluid Glucose Fluid Total Protein Vancomycin Trough Miscellaneous Test Crossmatch 05/30/18 05/30/18 05/30/18 05:07 05:15 05:15 WBC 16.2 H RBC 2.53 L Hgb 7.4 L Hct 21.9 L MCHC RDW Plt Count Lymph % (Auto) [place] % (Auto) Lymph # [place] # Seg Neutrophils % Seg Neuts % (Manual) Lymphocytes % (Manual) Seg Neutrophils # Seg Neutrophils # Man Lymphocytes # (Manual) PT INR APTT POC ABG pH POC ABG pCO2 34.5 L POC ABG pO2 133 H Sodium 135 L Potassium Chloride 97.5 L Carbon Dioxide BUN 69 H Creatinine 5.4 H Glucose 105 H POC Glucose Lactic Acid Calcium 7.5 L Phosphorus 5.30 H D Magnesium Iron TIBC AST ALT Alkaline Phosphatase Lactate Dehydrogenase Total Creatine Kinase C-Reactive Protein Total Protein Albumin Prealbumin CA 19-9 Antigen Folate PTH Intact Urine WBC (Auto) Urine Creatinine Urine Chloride Urine Total Protein Fluid Glucose Fluid Total Protein Vancomycin Trough Miscellaneous Test Crossmatch 05/30/18 05/30/18 05/31/18 12:13 17:10 04:50 WBC 18.7 H RBC 2.86 L Hgb 8.2 L Hct 24.8 L MCHC RDW Plt Count Lymph % (Auto) [place] % (Auto) Lymph # [place] # Seg Neutrophils % Seg Neuts % (Manual) 91.0 H Lymphocytes % (Manual) 2.0 L Seg Neutrophils # Seg Neutrophils # Man 17.0 H Lymphocytes # (Manual) 0.4 L PT INR APTT POC ABG pH POC ABG pCO2 POC ABG pO2 Sodium Potassium Chloride Carbon Dioxide BUN Creatinine Glucose POC Glucose 132 H 122 H Lactic Acid Calcium Phosphorus Magnesium Iron TIBC AST ALT Alkaline Phosphatase Lactate Dehydrogenase Total Creatine Kinase C-Reactive Protein Total Protein Albumin Prealbumin CA 19-9 Antigen Folate PTH Intact Urine WBC (Auto) Urine Creatinine Urine Chloride Urine Total Protein Fluid Glucose Fluid Total Protein Vancomycin Trough Miscellaneous Test Crossmatch 05/31/18 05/31/18 05/31/18 04:50 05:45 11:37 WBC RBC Hgb Hct MCHC RDW Plt Count Lymph % (Auto) [place] % (Auto) Lymph # [place] # Seg Neutrophils % Seg Neuts % (Manual) Lymphocytes % (Manual) Seg Neutrophils # Seg Neutrophils # Man Lymphocytes # (Manual) PT INR APTT POC ABG pH POC ABG pCO2 POC ABG pO2 Sodium 132 L Potassium Chloride 92.4 L Carbon Dioxide BUN 77 H Creatinine 5.9 H Glucose POC Glucose 111 H 136 H Lactic Acid Calcium 7.3 L Phosphorus 6.40 H D Magnesium Iron TIBC AST ALT Alkaline Phosphatase Lactate Dehydrogenase Total Creatine Kinase C-Reactive Protein Total Protein Albumin Prealbumin CA 19-9 Antigen Folate PTH Intact Urine WBC (Auto) Urine Creatinine Urine Chloride Urine Total Protein Fluid Glucose Fluid Total Protein Vancomycin Trough Miscellaneous Test Crossmatch 05/31/18 06/01/18 06/01/18 17:52 00:09 04:00 WBC RBC Hgb Hct MCHC RDW Plt Count Lymph % (Auto) [place] % (Auto) Lymph # [place] # Seg Neutrophils % Seg Neuts % (Manual) Lymphocytes % (Manual) Seg Neutrophils # Seg Neutrophils # Man Lymphocytes # (Manual) PT INR APTT POC ABG pH POC ABG pCO2 POC ABG pO2 Sodium Potassium Chloride 97.5 L Carbon Dioxide BUN 49 H Creatinine 4.2 H Glucose 104 H POC Glucose 115 H 114 H Lactic Acid Calcium 7.3 L Phosphorus 4.70 H D Magnesium Iron TIBC AST ALT Alkaline Phosphatase Lactate Dehydrogenase Total Creatine Kinase C-Reactive Protein Total Protein Albumin Prealbumin CA 19-9 Antigen Folate PTH Intact Urine WBC (Auto) Urine Creatinine Urine Chloride Urine Total Protein Fluid Glucose Fluid Total Protein Vancomycin Trough Miscellaneous Test Crossmatch 06/01/18 06/01/18 06/02/18 11:10 17:56 00:15 WBC RBC Hgb Hct MCHC RDW Plt Count Lymph % (Auto) [place] % (Auto) Lymph # [place] # Seg Neutrophils % Seg Neuts % (Manual) Lymphocytes % (Manual) Seg Neutrophils # Seg Neutrophils # Man Lymphocytes # (Manual) PT INR APTT POC ABG pH POC ABG pCO2 POC ABG pO2 Sodium Potassium Chloride Carbon Dioxide BUN Creatinine Glucose POC Glucose 123 H 126 H 135 H Lactic Acid Calcium Phosphorus Magnesium Iron TIBC AST ALT Alkaline Phosphatase Lactate Dehydrogenase Total Creatine Kinase C-Reactive Protein Total Protein Albumin Prealbumin CA 19-9 Antigen Folate PTH Intact Urine WBC (Auto) Urine Creatinine Urine Chloride Urine Total Protein Fluid Glucose Fluid Total Protein Vancomycin Trough Miscellaneous Test Crossmatch 06/02/18 06/02/18 06/02/18 05:23 12:42 13:05 WBC RBC Hgb Hct MCHC RDW Plt Count Lymph % (Auto) [place] % (Auto) Lymph # [place] # Seg Neutrophils % Seg Neuts % (Manual) Lymphocytes % (Manual) Seg Neutrophils # Seg Neutrophils # Man Lymphocytes # (Manual) PT 17.1 H INR 1.34 H APTT POC ABG pH POC ABG pCO2 POC ABG pO2 Sodium Potassium Chloride Carbon Dioxide BUN Creatinine Glucose POC Glucose 135 H 142 H Lactic Acid Calcium Phosphorus Magnesium Iron TIBC AST ALT Alkaline Phosphatase Lactate Dehydrogenase Total Creatine Kinase C-Reactive Protein Total Protein Albumin Prealbumin CA 19-9 Antigen Folate PTH Intact Urine WBC (Auto) Urine Creatinine Urine Chloride Urine Total Protein Fluid Glucose Fluid Total Protein Vancomycin Trough Miscellaneous Test Crossmatch 06/02/18 06/02/18 06/03/18 Unknown Unknown 00:54 WBC 20.8 H RBC 2.67 L Hgb 7.7 L Hct 23.0 L MCHC RDW Plt Count 500 H Lymph % (Auto) [place] % (Auto) Lymph # [place] # Seg Neutrophils % Seg Neuts % (Manual) Lymphocytes % (Manual) Seg Neutrophils # Seg Neutrophils # Man Lymphocytes # (Manual) PT INR APTT POC ABG pH POC ABG pCO2 POC ABG pO2 Sodium 136 L Potassium 3.5 L Chloride 96.9 L Carbon Dioxide BUN 62 H Creatinine 4.9 H Glucose 133 H POC Glucose 125 H Lactic Acid Calcium 7.2 L Phosphorus 5.00 H Magnesium Iron TIBC AST 46 H ALT 66 H Alkaline Phosphatase Lactate Dehydrogenase Total Creatine Kinase C-Reactive Protein Total Protein 5.7 L Albumin 1.5 L Prealbumin CA 19-9 Antigen Folate PTH Intact Urine WBC (Auto) Urine Creatinine Urine Chloride Urine Total Protein Fluid Glucose Fluid Total Protein Vancomycin Trough Miscellaneous Test Crossmatch 06/03/18 06/03/18 06/03/18 03:31 09:18 09:18 WBC RBC Hgb Hct MCHC RDW Plt Count Lymph % (Auto) [place] % (Auto) Lymph # [place] # Seg Neutrophils % Seg Neuts % (Manual) Lymphocytes % (Manual) Seg Neutrophils # Seg Neutrophils # Man Lymphocytes # (Manual) PT 17.1 H INR 1.34 H APTT POC ABG pH POC ABG pCO2 POC ABG pO2 Sodium 136 L Potassium Chloride Carbon Dioxide BUN 41 H Creatinine 3.4 H Glucose 129 H POC Glucose Lactic Acid Calcium 7.4 L Phosphorus Magnesium Iron TIBC AST ALT Alkaline Phosphatase Lactate Dehydrogenase Total Creatine Kinase C-Reactive Protein 11.10 H Total Protein Albumin Prealbumin CA 19-9 Antigen Folate PTH Intact Urine WBC (Auto) Urine Creatinine Urine Chloride Urine Total Protein Fluid Glucose Fluid Total Protein Vancomycin Trough Miscellaneous Test Crossmatch 06/03/18 06/03/18 06/03/18 16:07 21:18 Unknown WBC RBC Hgb Hct MCHC RDW Plt Count Lymph % (Auto) [place] % (Auto) Lymph # [place] # Seg Neutrophils % Seg Neuts % (Manual) Lymphocytes % (Manual) Seg Neutrophils # Seg Neutrophils # Man Lymphocytes # (Manual) PT INR APTT POC ABG pH POC ABG pCO2 POC ABG pO2 Sodium Potassium Chloride Carbon Dioxide BUN Creatinine Glucose POC Glucose 144 H 128 H Lactic Acid Calcium Phosphorus Magnesium Iron TIBC AST ALT Alkaline Phosphatase Lactate Dehydrogenase Total Creatine Kinase C-Reactive Protein Total Protein Albumin Prealbumin CA 19-9 Antigen Folate PTH Intact Urine WBC (Auto) Urine Creatinine Urine Chloride Urine Total Protein Fluid Glucose 10 L Fluid Total Protein 3.7 L Vancomycin Trough Miscellaneous Test Crossmatch 06/04/18 06/04/18 06/04/18 04:31 06:14 11:38 WBC RBC Hgb Hct MCHC RDW Plt Count Lymph % (Auto) [place] % (Auto) Lymph # [place] # Seg Neutrophils % Seg Neuts % (Manual) Lymphocytes % (Manual) Seg Neutrophils # Seg Neutrophils # Man Lymphocytes # (Manual) PT INR APTT POC ABG pH POC ABG pCO2 POC ABG pO2 Sodium Potassium Chloride Carbon Dioxide BUN 55 H Creatinine 3.7 H Glucose 151 H POC Glucose 145 H 129 H Lactic Acid Calcium 7.8 L Phosphorus 4.60 H Magnesium Iron TIBC AST ALT Alkaline Phosphatase Lactate Dehydrogenase Total Creatine Kinase C-Reactive Protein Total Protein Albumin Prealbumin CA 19-9 Antigen Folate PTH Intact Urine WBC (Auto) Urine Creatinine Urine Chloride Urine Total Protein Fluid Glucose Fluid Total Protein Vancomycin Trough Miscellaneous Test Crossmatch 06/04/18 06/04/18 06/04/18 17:09 20:00 21:29 WBC RBC Hgb 8.8 L Hct 27.3 L MCHC RDW Plt Count Lymph % (Auto) [place] % (Auto) Lymph # [place] # Seg Neutrophils % Seg Neuts % (Manual) Lymphocytes % (Manual) Seg Neutrophils # Seg Neutrophils # Man Lymphocytes # (Manual) PT INR APTT POC ABG pH POC ABG pCO2 POC ABG pO2 Sodium Potassium Chloride Carbon Dioxide BUN Creatinine Glucose POC Glucose 142 H 130 H Lactic Acid Calcium Phosphorus Magnesium Iron TIBC AST ALT Alkaline Phosphatase Lactate Dehydrogenase Total Creatine Kinase C-Reactive Protein Total Protein Albumin Prealbumin CA 19-9 Antigen Folate PTH Intact Urine WBC (Auto) Urine Creatinine Urine Chloride Urine Total Protein Fluid Glucose Fluid Total Protein Vancomycin Trough Miscellaneous Test Crossmatch 06/05/18 06/05/18 06/05/18 06:30 07:00 07:00 WBC 19.3 H RBC 2.94 L Hgb 8.3 L Hct 25.6 L MCHC RDW 15.7 H Plt Count 568 H Lymph % (Auto) 4.7 L [place] % (Auto) Lymph # 0.9 L [place] # 1.1 H Seg Neutrophils % 88.9 H Seg Neuts % (Manual) Lymphocytes % (Manual) Seg Neutrophils # 17.2 H Seg Neutrophils # Man Lymphocytes # (Manual) PT INR APTT POC ABG pH POC ABG pCO2 POC ABG pO2 Sodium Potassium 3.4 L D Chloride Carbon Dioxide BUN 67 H Creatinine 3.6 H Glucose 145 H POC Glucose 153 H Lactic Acid Calcium 7.9 L Phosphorus 4.60 H Magnesium Iron TIBC AST ALT Alkaline Phosphatase Lactate Dehydrogenase Total Creatine Kinase C-Reactive Protein Total Protein Albumin Prealbumin CA 19-9 Antigen Folate PTH Intact Urine WBC (Auto) Urine Creatinine Urine Chloride Urine Total Protein Fluid Glucose Fluid Total Protein Vancomycin Trough Miscellaneous Test Crossmatch 06/05/18 06/05/18 06/06/18 12:10 16:01 06:39 WBC RBC Hgb Hct MCHC RDW Plt Count Lymph % (Auto) [place] % (Auto) Lymph # [place] # Seg Neutrophils % Seg Neuts % (Manual) Lymphocytes % (Manual) Seg Neutrophils # Seg Neutrophils # Man Lymphocytes # (Manual) PT INR APTT POC ABG pH POC ABG pCO2 POC ABG pO2 Sodium Potassium Chloride Carbon Dioxide BUN Creatinine Glucose POC Glucose 150 H 129 H 131 H Lactic Acid Calcium Phosphorus Magnesium Iron TIBC AST ALT Alkaline Phosphatase Lactate Dehydrogenase Total Creatine Kinase C-Reactive Protein Total Protein Albumin Prealbumin CA 19-9 Antigen Folate PTH Intact Urine WBC (Auto) Urine Creatinine Urine Chloride Urine Total Protein Fluid Glucose Fluid Total Protein Vancomycin Trough Miscellaneous Test Crossmatch 06/06/18 06/06/18 06/06/18 07:14 07:14 07:14 WBC 16.5 H RBC 2.84 L Hgb 8.1 L Hct 25.2 L MCHC RDW 16.4 H Plt Count 526 H Lymph % (Auto) 6.5 L [place] % (Auto) Lymph # 1.1 L [place] # 1.2 H Seg Neutrophils % 85.3 H Seg Neuts % (Manual) Lymphocytes % (Manual) Seg Neutrophils # 14.1 H Seg Neutrophils # Man Lymphocytes # (Manual) PT INR APTT POC ABG pH POC ABG pCO2 POC ABG pO2 Sodium Potassium Chloride 109.1 H Carbon Dioxide 21 L BUN 76 H Creatinine 3.5 H Glucose 111 H POC Glucose Lactic Acid Calcium 8.1 L Phosphorus Magnesium Iron TIBC AST ALT Alkaline Phosphatase Lactate Dehydrogenase Total Creatine Kinase C-Reactive Protein 4.70 H Total Protein Albumin Prealbumin CA 19-9 Antigen Folate PTH Intact Urine WBC (Auto) Urine Creatinine Urine Chloride Urine Total Protein Fluid Glucose Fluid Total Protein Vancomycin Trough Miscellaneous Test Crossmatch 06/06/18 06/06/18 06/06/18 11:15 18:00 23:58 WBC RBC Hgb Hct MCHC RDW Plt Count Lymph % (Auto) [place] % (Auto) Lymph # [place] # Seg Neutrophils % Seg Neuts % (Manual) Lymphocytes % (Manual) Seg Neutrophils # Seg Neutrophils # Man Lymphocytes # (Manual) PT INR APTT POC ABG pH POC ABG pCO2 POC ABG pO2 Sodium Potassium Chloride Carbon Dioxide BUN Creatinine Glucose POC Glucose 127 H 130 H 114 H Lactic Acid Calcium Phosphorus Magnesium Iron TIBC AST ALT Alkaline Phosphatase Lactate Dehydrogenase Total Creatine Kinase C-Reactive Protein Total Protein Albumin Prealbumin CA 19-9 Antigen Folate PTH Intact Urine WBC (Auto) Urine Creatinine Urine Chloride Urine Total Protein Fluid Glucose Fluid Total Protein Vancomycin Trough Miscellaneous Test Crossmatch 06/07/18 06/07/18 06/07/18 05:45 05:45 05:54 WBC 15.5 H RBC 2.60 L Hgb 7.4 L Hct 23.1 L MCHC RDW 16.5 H Plt Count 506 H Lymph % (Auto) 5.3 L [place] % (Auto) Lymph # 0.8 L [place] # 1.0 H Seg Neutrophils % 86.6 H Seg Neuts % (Manual) Lymphocytes % (Manual) Seg Neutrophils # 13.4 H Seg Neutrophils # Man Lymphocytes # (Manual) PT INR APTT POC ABG pH POC ABG pCO2 POC ABG pO2 Sodium Potassium Chloride 108.4 H Carbon Dioxide BUN 84 H Creatinine 3.5 H Glucose 119 H POC Glucose 114 H Lactic Acid Calcium 8.1 L Phosphorus 5.10 H Magnesium Iron TIBC AST ALT Alkaline Phosphatase Lactate Dehydrogenase Total Creatine Kinase C-Reactive Protein Total Protein Albumin Prealbumin CA 19-9 Antigen Folate PTH Intact Urine WBC (Auto) Urine Creatinine Urine Chloride Urine Total Protein Fluid Glucose Fluid Total Protein Vancomycin Trough Miscellaneous Test Crossmatch 06/07/18 06/08/1818 12:15 05:05 05:24 WBC RBC Hgb Hct MCHC RDW Plt Count Lymph % (Auto) [place] % (Auto) Lymph # [place] # Seg Neutrophils % Seg Neuts % (Manual) Lymphocytes % (Manual) Seg Neutrophils # Seg Neutrophils # Man Lymphocytes # (Manual) PT INR APTT POC ABG pH POC ABG pCO2 POC ABG pO2 Sodium 148 H Potassium Chloride 112.4 H Carbon Dioxide BUN 89 H Creatinine 3.4 H Glucose 120 H POC Glucose 148 H 115 H Lactic Acid Calcium 7.9 L Phosphorus Magnesium Iron TIBC AST ALT Alkaline Phosphatase Lactate Dehydrogenase Total Creatine Kinase C-Reactive Protein Total Protein Albumin Prealbumin CA 19-9 Antigen Folate PTH Intact Urine WBC (Auto) Urine Creatinine Urine Chloride Urine Total Protein Fluid Glucose Fluid Total Protein Vancomycin Trough Miscellaneous Test Crossmatch 06/08/18 06/08/18 06/08/18 21:36 21:43 21:43 WBC RBC 2.98 L Hgb 8.8 L Hct 26.6 L MCHC RDW 16.7 H Plt Count 463 H Lymph % (Auto) 7.9 L [place] % (Auto) Lymph # 0.8 L [place] # Seg Neutrophils % 84.8 H Seg Neuts % (Manual) Lymphocytes % (Manual) Seg Neutrophils # 8.6 H Seg Neutrophils # Man Lymphocytes # (Manual) PT INR APTT POC ABG pH POC ABG pCO2 POC ABG pO2 Sodium Potassium Chloride Carbon Dioxide BUN Creatinine Glucose POC Glucose Lactic Acid Calcium Phosphorus Magnesium Iron TIBC AST ALT Alkaline Phosphatase Lactate Dehydrogenase 297 H Total Creatine Kinase C-Reactive Protein Total Protein Albumin Prealbumin CA 19-9 Antigen 57 H Folate PTH Intact Urine WBC (Auto) Urine Creatinine Urine Chloride Urine Total Protein Fluid Glucose Fluid Total Protein Vancomycin Trough Miscellaneous Test Crossmatch 06/09/18 06/09/18 06/09/18 00:05 05:34 05:50 WBC RBC Hgb Hct MCHC RDW Plt Count Lymph % (Auto) [place] % (Auto) Lymph # [place] # Seg Neutrophils % Seg Neuts % (Manual) Lymphocytes % (Manual) Seg Neutrophils # Seg Neutrophils # Man Lymphocytes # (Manual) PT INR APTT POC ABG pH POC ABG pCO2 POC ABG pO2 Sodium 153 H Potassium Chloride 117.3 H Carbon Dioxide BUN 84 H Creatinine 3.2 H Glucose 117 H POC Glucose 140 H 146 H Lactic Acid Calcium 7.9 L Phosphorus Magnesium Iron TIBC AST ALT Alkaline Phosphatase Lactate Dehydrogenase Total Creatine Kinase C-Reactive Protein Total Protein Albumin Prealbumin CA 19-9 Antigen Folate PTH Intact Urine WBC (Auto) Urine Creatinine Urine Chloride Urine Total Protein Fluid Glucose Fluid Total Protein Vancomycin Trough Miscellaneous Test Crossmatch 06/09/18 06/09/18 06/09/18 05:50 07:37 10:34 WBC RBC 2.32 L Hgb 6.8 L Hct 20.7 L MCHC RDW 16.7 H Plt Count Lymph % (Auto) [place] % (Auto) Lymph # [place] # Seg Neutrophils % Seg Neuts % (Manual) Lymphocytes % (Manual) Seg Neutrophils # Seg Neutrophils # Man Lymphocytes # (Manual) PT INR APTT POC ABG pH POC ABG pCO2 POC ABG pO2 Sodium 149 H Potassium Chloride 114.6 H Carbon Dioxide BUN 84 H Creatinine 3.1 H Glucose 137 H POC Glucose Lactic Acid Calcium 7.7 L Phosphorus Magnesium Iron TIBC AST ALT Alkaline Phosphatase Lactate Dehydrogenase Total Creatine Kinase C-Reactive Protein Total Protein Albumin Prealbumin CA 19-9 Antigen Folate PTH Intact Urine WBC (Auto) Urine Creatinine Urine Chloride Urine Total Protein Fluid Glucose Fluid Total Protein Vancomycin Trough Miscellaneous Test Flexitest 1 H Crossmatch 06/09/18 06/09/18 06/09/18 10:41 11:56 13:24 WBC RBC 2.43 L Hgb 7.2 L Hct 21.6 L MCHC RDW 16.8 H Plt Count Lymph % (Auto) [place] % (Auto) Lymph # [place] # Seg Neutrophils % Seg Neuts % (Manual) Lymphocytes % (Manual) Seg Neutrophils # Seg Neutrophils # Man Lymphocytes # (Manual) PT INR APTT POC ABG pH POC ABG pCO2 POC ABG pO2 Sodium Potassium Chloride Carbon Dioxide BUN Creatinine Glucose POC Glucose 141 H Lactic Acid Calcium Phosphorus Magnesium Iron TIBC AST ALT Alkaline Phosphatase Lactate Dehydrogenase Total Creatine Kinase C-Reactive Protein Total Protein Albumin Prealbumin CA 19-9 Antigen Folate PTH Intact Urine WBC (Auto) Urine Creatinine Urine Chloride Urine Total Protein Fluid Glucose Fluid Total Protein Vancomycin Trough Miscellaneous Test Crossmatch See Detail 06/09/18 06/09/18 06/10/18 18:18 23:13 05:26 WBC RBC Hgb Hct MCHC RDW Plt Count Lymph % (Auto) [place] % (Auto) Lymph # [place] # Seg Neutrophils % Seg Neuts % (Manual) Lymphocytes % (Manual) Seg Neutrophils # Seg Neutrophils # Man Lymphocytes # (Manual) PT INR APTT POC ABG pH POC ABG pCO2 POC ABG pO2 Sodium 148 H Potassium Chloride 114.7 H Carbon Dioxide 21 L BUN 79 H Creatinine 3.2 H Glucose 121 H POC Glucose 156 H 163 H Lactic Acid Calcium 7.8 L Phosphorus Magnesium 1.60 L Iron TIBC AST ALT Alkaline Phosphatase Lactate Dehydrogenase Total Creatine Kinase C-Reactive Protein Total Protein Albumin Prealbumin CA 19-9 Antigen Folate PTH Intact Urine WBC (Auto) Urine Creatinine Urine Chloride Urine Total Protein Fluid Glucose Fluid Total Protein Vancomycin Trough Miscellaneous Test Crossmatch 06/10/18 06/10/18 06/10/18 05:26 05:31 17:15 WBC 11.1 H RBC 3.07 L Hgb 9.1 L Hct 27.6 L D MCHC RDW 17.4 H Plt Count Lymph % (Auto) [place] % (Auto) Lymph # [place] # Seg Neutrophils % Seg Neuts % (Manual) Lymphocytes % (Manual) Seg Neutrophils # Seg Neutrophils # Man Lymphocytes # (Manual) PT INR APTT POC ABG pH POC ABG pCO2 POC ABG pO2 Sodium Potassium Chloride Carbon Dioxide BUN Creatinine Glucose POC Glucose 128 H Lactic Acid Calcium Phosphorus Magnesium Iron TIBC AST ALT Alkaline Phosphatase Lactate Dehydrogenase Total Creatine Kinase C-Reactive Protein 3.60 H Total Protein Albumin Prealbumin CA 19-9 Antigen Folate PTH Intact Urine WBC (Auto) Urine Creatinine Urine Chloride Urine Total Protein Fluid Glucose Fluid Total Protein Vancomycin Trough Miscellaneous Test Crossmatch 06/11/18 06/11/18 06/11/18 01:13 05:41 05:41 WBC 14.6 H RBC 3.40 L Hgb 9.8 L Hct 30.7 L MCHC RDW 18.1 H Plt Count Lymph % (Auto) [place] % (Auto) Lymph # [place] # Seg Neutrophils % Seg Neuts % (Manual) Lymphocytes % (Manual) Seg Neutrophils # Seg Neutrophils # Man Lymphocytes # (Manual) PT INR APTT POC ABG pH POC ABG pCO2 POC ABG pO2 Sodium Potassium Chloride 110.8 H Carbon Dioxide 18 L BUN 77 H Creatinine 3.0 H Glucose 116 H POC Glucose 126 H Lactic Acid Calcium 7.9 L Phosphorus Magnesium Iron TIBC AST ALT Alkaline Phosphatase Lactate Dehydrogenase Total Creatine Kinase C-Reactive Protein Total Protein Albumin Prealbumin CA 19-9 Antigen Folate PTH Intact Urine WBC (Auto) Urine Creatinine Urine Chloride Urine Total Protein Fluid Glucose Fluid Total Protein Vancomycin Trough Miscellaneous Test Crossmatch 06/11/18 06/11/18 06/11/18 06:20 07:41 07:41 WBC RBC Hgb Hct MCHC RDW Plt Count Lymph % (Auto) [place] % (Auto) Lymph # [place] # Seg Neutrophils % Seg Neuts % (Manual) Lymphocytes % (Manual) Seg Neutrophils # Seg Neutrophils # Man Lymphocytes # (Manual) PT INR APTT POC ABG pH POC ABG pCO2 POC ABG pO2 Sodium Potassium Chloride Carbon Dioxide BUN Creatinine Glucose POC Glucose 136 H Lactic Acid Calcium Phosphorus Magnesium Iron TIBC AST ALT Alkaline Phosphatase Lactate Dehydrogenase Total Creatine Kinase C-Reactive Protein Total Protein Albumin Prealbumin CA 19-9 Antigen Folate PTH Intact Urine WBC (Auto) 10.0 H Urine Creatinine 41.2 H Urine Chloride 49.2 L Urine Total Protein 142 H Fluid Glucose Fluid Total Protein Vancomycin Trough Miscellaneous Test Crossmatch 06/11/18 06/12/18 06/12/18 18:35 00:34 04:12 WBC RBC 3.18 L Hgb 9.5 L Hct 28.7 L MCHC RDW 18.5 H Plt Count Lymph % (Auto) 8.1 L [place] % (Auto) Lymph # 0.9 L [place] # Seg Neutrophils % 84.6 H Seg Neuts % (Manual) Lymphocytes % (Manual) Seg Neutrophils # 9.1 H Seg Neutrophils # Man Lymphocytes # (Manual) PT INR APTT POC ABG pH POC ABG pCO2 POC ABG pO2 Sodium Potassium Chloride Carbon Dioxide BUN Creatinine Glucose POC Glucose 125 H 129 H Lactic Acid Calcium Phosphorus Magnesium Iron TIBC AST ALT Alkaline Phosphatase Lactate Dehydrogenase Total Creatine Kinase C-Reactive Protein Total Protein Albumin Prealbumin CA 19-9 Antigen Folate PTH Intact Urine WBC (Auto) Urine Creatinine Urine Chloride Urine Total Protein Fluid Glucose Fluid Total Protein Vancomycin Trough Miscellaneous Test Crossmatch 06/12/18 06/12/18 06/12/18 04:12 06:30 11:43 WBC RBC Hgb Hct MCHC RDW Plt Count Lymph % (Auto) [place] % (Auto) Lymph # [place] # Seg Neutrophils % Seg Neuts % (Manual) Lymphocytes % (Manual) Seg Neutrophils # Seg Neutrophils # Man Lymphocytes # (Manual) PT INR APTT POC ABG pH POC ABG pCO2 POC ABG pO2 Sodium Potassium Chloride 108.5 H Carbon Dioxide 21 L BUN 72 H Creatinine 3.0 H Glucose 122 H POC Glucose 129 H 126 H Lactic Acid Calcium 7.8 L Phosphorus Magnesium Iron TIBC AST 45 H ALT Alkaline Phosphatase 200 H Lactate Dehydrogenase Total Creatine Kinase 34 L C-Reactive Protein Total Protein Albumin 1.7 L Prealbumin CA 19-9 Antigen Folate PTH Intact Urine WBC (Auto) Urine Creatinine Urine Chloride Urine Total Protein Fluid Glucose Fluid Total Protein Vancomycin Trough Miscellaneous Test Crossmatch 06/12/18 06/12/18 06/13/18 16:00 23:56 03:44 WBC RBC Hgb Hct MCHC RDW Plt Count Lymph % (Auto) [place] % (Auto) Lymph # [place] # Seg Neutrophils % Seg Neuts % (Manual) Lymphocytes % (Manual) Seg Neutrophils # Seg Neutrophils # Man Lymphocytes # (Manual) PT INR APTT POC ABG pH POC ABG pCO2 POC ABG pO2 Sodium Potassium Chloride Carbon Dioxide BUN Creatinine Glucose POC Glucose 123 H 128 H 121 H Lactic Acid Calcium Phosphorus Magnesium Iron TIBC AST ALT Alkaline Phosphatase Lactate Dehydrogenase Total Creatine Kinase C-Reactive Protein Total Protein Albumin Prealbumin CA 19-9 Antigen Folate PTH Intact Urine WBC (Auto) Urine Creatinine Urine Chloride Urine Total Protein Fluid Glucose Fluid Total Protein Vancomycin Trough Miscellaneous Test Crossmatch 06/13/18 06/13/18 06/14/18 05:59 11:29 01:08 WBC RBC Hgb Hct MCHC RDW Plt Count Lymph % (Auto) [place] % (Auto) Lymph # [place] # Seg Neutrophils % Seg Neuts % (Manual) Lymphocytes % (Manual) Seg Neutrophils # Seg Neutrophils # Man Lymphocytes # (Manual) PT INR APTT POC ABG pH POC ABG pCO2 POC ABG pO2 Sodium 134 L Potassium Chloride Carbon Dioxide 20 L BUN 69 H Creatinine 2.9 H Glucose 113 H POC Glucose 124 H 128 H Lactic Acid Calcium 7.8 L Phosphorus Magnesium Iron TIBC AST ALT Alkaline Phosphatase Lactate Dehydrogenase Total Creatine Kinase C-Reactive Protein Total Protein Albumin Prealbumin CA 19-9 Antigen Folate PTH Intact Urine WBC (Auto) Urine Creatinine Urine Chloride Urine Total Protein Fluid Glucose Fluid Total Protein Vancomycin Trough Miscellaneous Test Crossmatch 06/14/18 06/14/18 06/14/18 06:42 06:42 09:50 WBC 11.3 H RBC 3.02 L Hgb 8.8 L Hct 27.3 L MCHC RDW 18.6 H Plt Count Lymph % (Auto) [place] % (Auto) Lymph # [place] # Seg Neutrophils % Seg Neuts % (Manual) Lymphocytes % (Manual) Seg Neutrophils # Seg Neutrophils # Man Lymphocytes # (Manual) PT 16.3 H INR 1.24 H APTT POC ABG pH POC ABG pCO2 POC ABG pO2 Sodium 132 L Potassium Chloride Carbon Dioxide 19 L BUN 71 H Creatinine 3.1 H Glucose POC Glucose Lactic Acid Calcium 7.8 L Phosphorus Magnesium Iron TIBC AST ALT Alkaline Phosphatase Lactate Dehydrogenase Total Creatine Kinase C-Reactive Protein Total Protein Albumin Prealbumin CA 19-9 Antigen Folate PTH Intact Urine WBC (Auto) Urine Creatinine Urine Chloride Urine Total Protein Fluid Glucose Fluid Total Protein Vancomycin Trough Miscellaneous Test Crossmatch 06/14/18 06/14/18 06/15/18 12:31 17:04 01:18 WBC RBC Hgb Hct MCHC RDW Plt Count Lymph % (Auto) [place] % (Auto) Lymph # [place] # Seg Neutrophils % Seg Neuts % (Manual) Lymphocytes % (Manual) Seg Neutrophils # Seg Neutrophils # Man Lymphocytes # (Manual) PT INR APTT POC ABG pH POC ABG pCO2 POC ABG pO2 Sodium Potassium Chloride Carbon Dioxide BUN Creatinine Glucose POC Glucose 125 H 109 H 124 H Lactic Acid Calcium Phosphorus Magnesium Iron TIBC AST ALT Alkaline Phosphatase Lactate Dehydrogenase Total Creatine Kinase C-Reactive Protein Total Protein Albumin Prealbumin CA 19-9 Antigen Folate PTH Intact Urine WBC (Auto) Urine Creatinine Urine Chloride Urine Total Protein Fluid Glucose Fluid Total Protein Vancomycin Trough Miscellaneous Test Crossmatch 06/15/18 06/15/18 06/15/18 05:27 06:34 11:42 WBC RBC Hgb Hct MCHC RDW Plt Count Lymph % (Auto) [place] % (Auto) Lymph # [place] # Seg Neutrophils % Seg Neuts % (Manual) Lymphocytes % (Manual) Seg Neutrophils # Seg Neutrophils # Man Lymphocytes # (Manual) PT INR APTT POC ABG pH POC ABG pCO2 POC ABG pO2 Sodium 134 L Potassium Chloride Carbon Dioxide 17 L BUN 77 H Creatinine 3.2 H Glucose 110 H POC Glucose 116 H 131 H Lactic Acid Calcium 8.1 L Phosphorus 6.20 H D Magnesium Iron TIBC AST ALT Alkaline Phosphatase Lactate Dehydrogenase Total Creatine Kinase C-Reactive Protein Total Protein Albumin Prealbumin CA 19-9 Antigen Folate PTH Intact Urine WBC (Auto) Urine Creatinine Urine Chloride Urine Total Protein Fluid Glucose Fluid Total Protein Vancomycin Trough Miscellaneous Test Crossmatch 06/16/18 06/16/18 06/16/18 00:57 05:10 06:07 WBC RBC Hgb Hct MCHC RDW Plt Count Lymph % (Auto) [place] % (Auto) Lymph # [place] # Seg Neutrophils % Seg Neuts % (Manual) Lymphocytes % (Manual) Seg Neutrophils # Seg Neutrophils # Man Lymphocytes # (Manual) PT INR APTT POC ABG pH POC ABG pCO2 POC ABG pO2 Sodium 132 L Potassium Chloride Carbon Dioxide 19 L BUN 83 H Creatinine 3.2 H Glucose 113 H POC Glucose 137 H 109 H Lactic Acid Calcium 7.8 L Phosphorus 6.10 H Magnesium Iron TIBC AST ALT Alkaline Phosphatase Lactate Dehydrogenase Total Creatine Kinase C-Reactive Protein Total Protein Albumin Prealbumin CA 19-9 Antigen Folate PTH Intact Urine WBC (Auto) Urine Creatinine Urine Chloride Urine Total Protein Fluid Glucose Fluid Total Protein Vancomycin Trough Miscellaneous Test Crossmatch 06/16/18 06/16/18 06/17/18 11:51 15:46 00:02 WBC RBC Hgb Hct MCHC RDW Plt Count Lymph % (Auto) [place] % (Auto) Lymph # [place] # Seg Neutrophils % Seg Neuts % (Manual) Lymphocytes % (Manual) Seg Neutrophils # Seg Neutrophils # Man Lymphocytes # (Manual) PT INR APTT POC ABG pH POC ABG pCO2 POC ABG pO2 Sodium Potassium Chloride Carbon Dioxide BUN Creatinine Glucose POC Glucose 126 H 127 H 107 H Lactic Acid Calcium Phosphorus Magnesium Iron TIBC AST ALT Alkaline Phosphatase Lactate Dehydrogenase Total Creatine Kinase C-Reactive Protein Total Protein Albumin Prealbumin CA 19-9 Antigen Folate PTH Intact Urine WBC (Auto) Urine Creatinine Urine Chloride Urine Total Protein Fluid Glucose Fluid Total Protein Vancomycin Trough Miscellaneous Test Crossmatch 06/17/18 05:52 WBC RBC Hgb Hct MCHC RDW Plt Count Lymph % (Auto) [place] % (Auto) Lymph # [place] # Seg Neutrophils % Seg Neuts % (Manual) Lymphocytes % (Manual) Seg Neutrophils # Seg Neutrophils # Man Lymphocytes # (Manual) PT INR APTT POC ABG pH POC ABG pCO2 POC ABG pO2 Sodium 133 L Potassium Chloride Carbon Dioxide 17 L BUN 87 H Creatinine 3.2 H Glucose POC Glucose Lactic Acid Calcium 8.1 L Phosphorus 6.50 H Magnesium Iron TIBC AST ALT Alkaline Phosphatase Lactate Dehydrogenase Total Creatine Kinase C-Reactive Protein Total Protein Albumin Prealbumin 0.130 L CA 19-9 Antigen Folate PTH Intact Urine WBC (Auto) Urine Creatinine Urine Chloride Urine Total Protein Fluid Glucose Fluid Total Protein Vancomycin Trough Miscellaneous Test Crossmatch Chest x-ray: report reviewed (Small bilateral pleural effusions. Left mid lung infiltrate reported.), image reviewed Allied health notes reviewed: nursing
--- NOTE | 2018-06-17 08:30 | Progress Note ---
Assessment and Plan 1. Acute kidney injury: Initial MARYLOU in the setting of bilateral hydronephrosis secondary to pelvic mass , now s/p bilateral nephrostomy. Recurrent Acute kidney injury likely ATN now. Patient was on hemodialysis due to worsening renal function and persistent hyperkalemia. Last dialyzed on 06/02/18. BUN and Creatinine level are increasing. Continue IV fluids. Renal prognosis is guarded. 2. Electrolytes: Mild hyponatremia, monitor. 3. Bowel obstruction: S/p ostomy. 4. Bilateral hydronephrosis: Secondary to pelvic mass. S/p bilateral nephrostomy. S/p Cysto and drainage of abscess. 5. Respiratory failure: S/p extubated. 6. Hypertension: Continue Clonidine patch. Stop Labetalol due to relative low BP. Monitor BP. 7. Sepsis: Complicated UTI and pneumonia. 8. Anemia. 9. 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 Await LTAC placement. Subjective Date of service: 06/17/18 Principal diagnosis: sq cell ca - prostate area Interval history: Patient was seen and examined at the bedside. Objective - Vital Signs Vital signs: Vital Signs - 12hr 06/16/18 06/16/18 06/16/18 20:43 20:47 23:30 Temperature Pulse Rate 88 81 Respiratory 18 Rate Blood Pressure 145/80 O2 Sat by Pulse 93 93 Oximetry 06/16/18 06/17/18 23:53 03:21 Temperature 97.6 F 97.9 F Pulse Rate 81 81 Respiratory 18 18 Rate Blood Pressure 111/64 111/74 O2 Sat by Pulse 93 91 Oximetry - General Appearance General appearance: well-developed, appears stated age, other (not in distress) EENT: ATNC, PERRL, hearing intact, vision intact Neck: supple Respiratory: Present: Clear to Ascultation Cardiology: regular, S1S2, no murmurs Gastrointestinal: normoactive bowel sounds, other (ostomy and bilateral nephrostomy noted) Integumentary: no rash Neurologic: no focal deficit, no asterixis Musculoskeletal: other (no edema) - Lab 06/14/18 06:42 06/17/18 05:52 Most recent lab results Calcium 8.1 mg/dL (8.4-10.2) L 06/17/18 05:52 Phosphorus 6.50 mg/dL (2.5-4.5) H 06/17/18 05:52 Magnesium 2.10 mg/dL (1.7-2.3) 06/17/18 05:52 Urine Creatinine 41.2 mg/dL (0.1-20.0) H 06/11/18 07:41 Urine Sodium 79 mmol/L 06/11/18 07:41 Urine Total Protein 142 mg/dL (5-11.8) H 06/11/18 07:41
[2018-06-17] MEDS: FOLVITE PO SCH (09:32)
[2018-06-17] MEDS: LOVENOX SUB-Q SCH (09:32)
[2018-06-17] MEDS: TYLENOL PO PRN (09:32)
[2018-06-17] MEDS: FERROUS SULFATE PO SCH ×2 (09:35→21:39)
--- NOTE | 2018-06-17 10:54 | Progress Note ---
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 Continue pain control PRN Bilateral pneumonia (possibly aspiration) Monitor respiratory status Continue Nebs PRN Continue antibiotic Sepsis Continue Zosyn Acute kidney injury (obstructive uropathy vs contrast nephropathy) was on hemodialysis temporarily. Stable renal function. Dialysis catheter removed as per nephrology Continue to monitor BMP and kidney fuction Had bilateral nephrostomy tubes placed 05/14/[address] Freeman. Acute deep venous thrombosis Anticoagulation previously on hold because of anemia, bilateral nephrostomy tubes and abdominal surgery We will restart anticoagulation -- will check with Heme Start Lovenox SC 1mg/kg BID Moderate to severe protein calorie malnutrition Continue tube feeding Started on diet and tolerating Hypokalemia, now resolved Potassium and mag replacement as needed Anemia due to Chronic illness s/p PRBC transfusion Bilateral moderate pleural effusion, for thoracentesis Plan is for LTAC. Dr. Smiley had lengthy family meeting on 06/09/18. present was Dr. Lopez, Dr. Bass, myself, keycase assembler and Karen, from admin, and Patient's sister Adriana and brother. They discussed diagnosis, management and plan and arranged for him to go to LTAC, and later chemotherapy when strong enough. All her questions were answered. Patient is medically stable to go to LTAC. keycase assembler working on placement. - Patient Problems (1) Acute renal failure Current Visit: Yes Status: Acute Qualifiers: Acute renal failure type: unspecified Qualified Code(s): N17.9 - Acute kidney failure, unspecified (2) Bilateral pleural effusion Current Visit: Yes Status: Acute (3) Edema Current Visit: Yes Status: Acute Qualifiers: Edema type: unspecified Qualified Code(s): R60.9 - Edema, unspecified (4) Hypertensive urgency, malignant Current Visit: Yes Status: Acute (5) Intestinal obstruction Current Visit: Yes Status: Acute (6) Pelvic mass in male Current Visit: Yes Status: Acute (7) Pneumonia involving left lung Current Visit: Yes Status: Acute (8) Sepsis Current Visit: Yes Status: Acute (9) UTI (urinary tract infection) Current Visit: Yes Status: Acute History Interval history: No new issues overnight. Hospitalist Physical - Constitutional Vitals: Temp Pulse Resp BP Pulse Ox 97.6 F 77 20 118/74 93 06/17/18 08:05 06/17/18 08:05 06/17/18 08:05 06/17/18 08:05 06/17/18 08:05 General appearance: Present: no acute distress, well-nourished - EENT Eyes: Present: PERRL, EOM intact ENT: hearing intact, clear oral mucosa, dentition normal - Neck Neck: Present: supple, normal ROM - Respiratory Respiratory effort: normal Respiratory: bilateral: CTA - Cardiovascular Rhythm: regular Heart Sounds: Present: S1 & S2. Absent: gallop, rub - Extremities Extremities: no ischemia, No edema, Full ROM - Abdominal General gastrointestinal: soft, non-tender, non-distended, normal bowel sounds - Integumentary Integumentary: Present: clear, warm, dry - Neurologic Neurologic: CNII-XII intact, moves all extremities Results - Labs CBC & Chem 7: 06/14/18 06:42 06/17/18 05:52 Labs: Laboratory Last Values WBC 11.3 K/mm3 (4.5-11.0) H 06/14/18 06:42 RBC 3.02 M/mm3 (3.65-5.03) L 06/14/18 06:42 Hgb 8.8 gm/dl (11.8-15.2) L 06/14/18 06:42 Hct 27.3 % (35.5-45.6) L 06/14/18 06:42 MCV 90 fl (84-94) 06/14/18 06:42 MCH 29 pg (28-32) 06/14/18 06:42 MCHC 32 % (32-34) 06/14/18 06:42 RDW 18.6 % (13.2-15.2) H 06/14/18 06:42 Plt Count 323 K/mm3 (140-440) 06/14/18 06:42 Lymph % (Auto) 8.1 % (13.4-35.0) L 06/12/18 04:12 [place] % (Auto) 6.1 % (0.0-7.3) 06/12/18 04:12 Eos % (Auto) 0.5 % (0.0-4.3) 06/12/18 04:12 Baso % (Auto) 0.7 % (0.0-1.8) 06/12/18 04:12 Lymph # 0.9 K/mm3 (1.2-5.4) L 06/12/18 04:12 [place] # 0.7 K/mm3 (0.0-0.8) 06/12/18 04:12 Eos # 0.1 K/mm3 (0.0-0.4) 06/12/18 04:12 Baso # 0.1 K/mm3 (0.0-0.1) 06/12/18 04:12 Add Manual Diff Complete 05/31/18 04:50 Total Counted 100 05/31/18 04:50 Seg Neutrophils % 84.6 % (40.0-70.0) H 06/12/18 04:12 Seg Neuts % (Manual) 91.0 % (40.0-70.0) H 05/31/18 04:50 Band Neutrophils % 2.0 % 05/31/18 04:50 Lymphocytes % (Manual) 2.0 % (13.4-35.0) L 05/31/18 04:50 Reactive Lymphs % (Man) 0 % 05/31/18 04:50 Monocytes % (Manual) 2.0 % (0.0-7.3) 05/31/18 04:50 Eosinophils % (Manual) 1.0 % (0.0-4.3) 05/31/18 04:50 Basophils % (Manual) 0 % (0.0-1.8) 05/31/18 04:50 Metamyelocytes % 1.0 % 05/31/18 04:50 Myelocytes % 1.0 % 05/31/18 04:50 Promyelocytes % 0 % 05/31/18 04:50 Blast Cells % 0 % 05/31/18 04:50 Nucleated RBC % Not Reportable 05/31/18 04:50 Seg Neutrophils # 9.1 K/mm3 (1.8-7.7) H 06/12/18 04:12 Seg Neutrophils # Man 17.0 K/mm3 (1.8-7.7) H 05/31/18 04:50 Band Neutrophils # 0.4 K/mm3 05/31/18 04:50 Lymphocytes # (Manual) 0.4 K/mm3 (1.2-5.4) L 05/31/18 04:50 Abs React Lymphs (Man) 0.0 K/mm3 05/31/18 04:50 Monocytes # (Manual) 0.4 K/mm3 (0.0-0.8) 05/31/18 04:50 Eosinophils # (Manual) 0.2 K/mm3 (0.0-0.4) 05/31/18 04:50 Basophils # (Manual) 0.0 K/mm3 (0.0-0.1) 05/31/18 04:50 Metamyelocytes # 0.2 K/mm3 05/31/18 04:50 Myelocytes # 0.2 K/mm3 05/31/18 04:50 Promyelocytes # 0.0 K/mm3 05/31/18 04:50 Blast Cells # 0.0 K/mm3 05/31/18 04:50 WBC Morphology Not Reportable 05/31/18 04:50 Hypersegmented Neuts Not Reportable 05/31/18 04:50 Hyposegmented Neuts Not Reportable 05/31/18 04:50 Hypogranular Neuts Not Reportable 05/31/18 04:50 Smudge Cells Not Reportable 05/31/18 04:50 Toxic Granulation Not Reportable 05/31/18 04:50 Toxic Vacuolation Not Reportable 05/31/18 04:50 Dohle Bodies Not Reportable 05/31/18 04:50 Pelger-Huet Anomaly Not Reportable 05/31/18 04:50 Mahesh Rods Not Reportable 05/31/18 04:50 Platelet Estimate Appears normal 05/31/18 04:50 Clumped Platelets Not Reportable 05/31/18 04:50 Plt Clumps, EDTA Not Reportable 05/31/18 04:50 Large Platelets Not Reportable 05/31/18 04:50 Giant Platelets Not Reportable 05/31/18 04:50 Platelet Satelliting Not Reportable 05/31/18 04:50 Plt Morphology Comment Not Reportable 05/31/18 04:50 RBC Morphology Not Reportable 05/31/18 04:50 Dimorphic RBCs Not Reportable 05/31/18 04:50 Polychromasia Not Reportable 05/31/18 04:50 Hypochromasia Few 05/31/18 04:50 Poikilocytosis Not Reportable 05/31/18 04:50 Anisocytosis 1+ 05/31/18 04:50 Microcytosis Few 05/31/18 04:50 Macrocytosis Not Reportable 05/31/18 04:50 Spherocytes Not Reportable 05/31/18 04:50 Pappenheimer Bodies Not Reportable 05/31/18 04:50 Sickle Cells Not Reportable 05/31/18 04:50 Target Cells Rare 05/31/18 04:50 Tear Drop Cells Not Reportable 05/31/18 04:50 Ovalocytes 1+ 05/31/18 04:50 Helmet Cells Not Reportable 05/31/18 04:50 [place] Bodies Not Reportable 05/31/18 04:50 [place] Rings Not Reportable 05/31/18 04:50 Nory Cells Not Reportable 05/31/18 04:50 Bite Cells Not Reportable 05/31/18 04:50 Crenated Cell Not Reportable 05/31/18 04:50 Elliptocytes Not Reportable 05/31/18 04:50 Acanthocytes (Spur) Not Reportable 05/31/18 04:50 Rouleaux Not Reportable 05/31/18 04:50 Hemoglobin C Crystals Not Reportable 05/31/18 04:50 Schistocytes Not Reportable 05/31/18 04:50 Malaria parasites Not Reportable 05/31/18 04:50 Mk Bodies Not Reportable 05/31/18 04:50 Hem Pathologist Commnt No 05/31/18 04:50 PT 16.3 Sec. (12.2-14.9) H 06/14/18 09:50 INR 1.24 (0.87-1.13) H 06/14/18 09:50 APTT 40.0 Sec. (24.2-36.6) H 05/23/18 09:03 POC ABG pH 7.362 (7.35-7.45) 05/31/18 09:58 POC ABG pCO2 36.4 (35-45) 05/31/18 09:58 POC ABG pO2 101 (80-105) 05/31/18 09:58 POC ABG HCO3 20.7 05/31/18 09:58 POC ABG Total CO2 22 05/31/18 09:58 POC ABG O2 Sat 98 05/31/18 09:58 POC ABG Base Excess -5 05/31/18 09:58 FiO2 40 % 05/31/18 09:58 Sodium 133 mmol/L (137-145) L 06/17/18 05:52 Potassium 4.6 mmol/L (3.6-5.0) 06/17/18 05:52 Chloride 100.0 mmol/L (98-107) 06/17/18 05:52 Carbon Dioxide 17 mmol/L (22-30) L 06/17/18 05:52 Anion Gap 21 mmol/L 06/17/18 05:52 BUN 87 mg/dL (9-20) H 06/17/18 05:52 Creatinine 3.2 mg/dL (0.8-1.5) H 06/17/18 05:52 Estimated GFR 25 ml/min 06/17/18 05:52 BUN/Creatinine Ratio 27 % 06/17/18 05:52 Glucose 82 mg/dL (75-100) 06/17/18 05:52 POC Glucose 85 (70-105) 06/17/18 05:46 Hemoglobin A1c 5.7 % (4-6) 05/14/18 05:05 Lactic Acid 3.80 mmol/L (0.7-2.0) H* 05/26/18 11:00 Calcium 8.1 mg/dL (8.4-10.2) L 06/17/18 05:52 Phosphorus 6.50 mg/dL (2.5-4.5) H 06/17/18 05:52 Magnesium 2.10 mg/dL (1.7-2.3) 06/17/18 05:52 Iron 24 ug/dL (49-181) L 05/16/18 07:02 TIBC 160 mcg/dL (250-450) L 05/16/18 07:02 Ferritin 325.8 ng/mL (13.0-400.0) 05/16/18 07:02 Total Bilirubin 0.30 mg/dL (0.1-1.2) 06/12/18 04:12 AST 45 units/L (5-40) H 06/12/18 04:12 ALT 29 units/L (7-56) 06/12/18 04:12 Alkaline Phosphatase 200 units/L (35-129) H 06/12/18 04:12 Lactate Dehydrogenase 297 units/L (91-180) H 06/08/18 21:36 Total Creatine Kinase 34 units/L (55-170) L 06/12/18 04:12 CK-MB (CK-2) 2.3 ng/mL (0.0-4.0) 05/25/18 22:46 CK-MB (CK-2) Rel Index 1.4 (0-4) 05/25/18 22:46 C-Reactive Protein 3.60 mg/dL (0.00-1.30) H 06/10/18 17:15 Total Protein 7.3 g/dL (6.3-8.2) 06/12/18 04:12 Albumin 1.7 g/dL (3.9-5) L 06/12/18 04:12 Albumin/Globulin Ratio 0.3 % 06/12/18 04:12 Prealbumin 0.130 g/L (0.200-0.400) L 06/17/18 05:52 Triglycerides 112 mg/dL (2-149) 06/03/18 03:31 CA 19-9 Antigen 57 U/mL (<34) H 06/08/18 21:43 Prostate Specific Ag 0.96 ng/mL (0.00-4.00) 05/14/18 13:29 Free PSA See scanned result 06/08/18 21:44 % Free PSA Calc See scanned result 06/08/18 21:44 Total PSA See scanned result 06/08/18 21:44 Vitamin B12 359.2 pg/mL (211-911) 05/16/18 07:02 Folate 5.39 ng/mL (7.3-26.0) L 05/16/18 07:02 TSH 3.180 mlU/mL (0.270-4.200) 05/14/18 05:05 PTH Intact 65.37 pg/mL (15-65) H 05/14/18 05:05 Urine Color Yellow (Yellow) 06/11/18 07:41 Urine Turbidity Slightly-cloudy (Clear) 06/11/18 07:41 Urine pH 6.0 (5.0-7.0) 06/11/18 07:41 Ur Specific [place] 1.011 (1.003-1.030) 06/11/18 07:41 Urine Protein 100 mg/dl mg/dL (Negative) 06/11/18 07:41 Urine Glucose (UA) 150 mg/dL (Negative) 06/11/18 07:41 Urine Ketones Neg mg/dL (Negative) 06/11/18 07:41 Urine Blood Sm (Negative) 06/11/18 07:41 Urine Nitrite Neg (Negative) 06/11/18 07:41 Urine Bilirubin Neg (Negative) 06/11/18 07:41 Urine Urobilinogen < 2.0 mg/dL (<2.0) 06/11/18 07:41 Ur Leukocyte Esterase Sm (Negative) 06/11/18 07:41 Urine WBC (Auto) 10.0 /HPF (0.0-6.0) H 06/11/18 07:41 Urine RBC (Auto) 5.0 /HPF (0.0-6.0) 06/11/18 07:41 U Epithel Cells (Auto) 1.0 /HPF (0-13.0) 06/11/18 07:41 Urine Bacteria (Auto) 1+ /HPF (Negative) 06/11/18 07:41 Urine WBC Clumps Few /HPF 05/13/18 19:39 Urine Mucus Few /HPF 06/11/18 07:41 Ur Yeast w [place] Few /HPF 06/11/18 07:41 Urine Yeast ([place]) Few /HPF 06/11/18 07:41 Urine Creatinine 41.2 mg/dL (0.1-20.0) H 06/11/18 07:41 Urine Sodium 79 mmol/L 06/11/18 07:41 Urine Potassium 13.27 mmol/L 06/11/18 07:41 Urine Chloride 49.2 mmolL (110-250) L 06/11/18 07:41 Urine Total Protein 142 mg/dL (5-11.8) H 06/11/18 07:41 Fluid Type Ascitic 06/03/18 Unknown Fluid Color Yellow 06/03/18 Unknown Fluid Appearance Cloudy 06/03/18 Unknown Fluid WBC 78935 /mm3 06/03/18 Unknown Fluid RBC 9 /mm3 06/03/18 Unknown Fluid Seg Neutrophils 98.0 % 06/03/18 Unknown Fluid Lymphocytes 2.0 % 06/03/18 Unknown Fluid Reactive Lymphs 0 % 06/03/18 Unknown Fluid Monocytes 0 % 06/03/18 Unknown Fluid Eosinophils 0 % 06/03/18 Unknown Fluid Basophils 0 % 06/03/18 Unknown Fluid Glucose 10 mg/dL (40-70) L 06/03/18 Unknown Fluid Total Protein 3.7 (15.0-45.0) L 06/03/18 Unknown Fluid Albumin 0.8 g/dL 06/03/18 Unknown Fluid LDH > 65788 06/03/18 Unknown Fluid Amylase 126 06/03/18 Unknown Vancomycin Trough 25.1 ug/mL (5.0-20.0) H 05/25/18 22:46 Random Vancomycin 34.3 ug/mL (0-40.0) 05/26/18 11:01 Urine Opiates Screen Presumptive negative 06/11/18 07:41 Urine Methadone Screen Presumptive negative 06/11/18 07:41 Ur Barbiturates Screen Presumptive negative 06/11/18 07:41 Ur Phencyclidine Scrn Presumptive negative 06/11/18 07:41 Ur Amphetamines Screen Presumptive negative 06/11/18 07:41 U Benzodiazepines Scrn Presumptive negative 06/11/18 07:41 Urine Cocaine Screen Presumptive negative 06/11/18 07:41 U Marijuana (THC) Screen Presumptive negative 06/11/18 07:41 Drugs of Abuse Note Disclamer 06/11/18 07:41 ZEUS Screen Negative (Negative) 05/14/18 05:05 Proteinase 3 (PR3) Ab <1.0 AI (<1.0) 05/14/18 05:05 Myeloperoxidase Ab <1.0 AI (<1.0) 05/14/18 05:05 Complement C3 147 mg/dL (82-185) 05/14/18 05:05 Complement C4 45 mg/dL (15-53) 05/14/18 05:05 Hepatitis A IgM Ab Nonreactive (NonReactive) 05/27/18 13:41 Hep Bs Antigen Non-reactive (Negative) 05/27/18 13:41 Hep B Core IgM Ab Non-reactive (NonReactive) 05/27/18 13:41 Hepatitis C Antibody Non-reactive (NonReactive) 05/27/18 13:41 Miscellaneous Test Flexitest 1 H 06/09/18 07:37 Blood Type O POSITIVE 06/09/18 13:24 Antibody Screen Negative 06/09/18 13:24 Crossmatch See Detail 06/09/18 13:24
[2018-06-17] MEDS: APRESOLINE PO SCH ×3 (13:51→21:42)
--- NOTE | 2018-06-17 14:14 | XRay Report ---
Portable chest: Line placement. A right PICC line is present. The tip is in the upper SVC. Good blood return according to the IV nurse. Enlarged heart with mild vascular congestion. Bilateral pleural effusions. Compared to prior exam of June 14 the right jugular central venous line has been removed. Impression: 1. Right PICC line positioning as described. 2. Persistent bilateral effusions and evidence of vascular congestion.
[2018-06-17] MEDS: PEPCID IV SCH (14:48)
[2018-06-17] MEDS: NACL 0.45% 1000 ML 1,000 ML IV SCH (14:48)
[2018-06-17] MEDS: ZOSYN/NS 2.25 GM/50ML 2.25 GM/50 ML BAG IV SCH (14:48)
[2018-06-17] MEDS ORDERED: TPN ADULT 2,016 ML IV SCH (20:00)
[2018-06-17] MEDS ORDERED: INTRALIPID 20% 250 ML IV SCH (20:00)
[2018-06-18] MEDS: ZOSYN/NS 2.25 GM/50ML 2.25 GM/50 ML BAG IV SCH ×3 (04:00→21:41)
[2018-06-18] MEDS: NACL 0.45% 1000 ML 1,000 ML IV SCH (04:08)
[2018-06-18 04:23] LABS: Basophils # (Auto) 0.1 K/mm3 (0.0-0.1); Basophils % (Auto) 0.8 % (0.0-1.8); Eosinophils # (Auto) 0.1 K/mm3 (0.0-0.4); Eosinophils % (Auto) 0.8 % (0.0-4.3); Hematocrit 26.5 % (35.5-45.6); Hemoglobin 8.9 gm/dl (11.8-15.2); Lymphocytes # (Auto) 0.8 K/mm3 (1.2-5.4); Lymphocytes % (Auto) 7.9 % (13.4-35.0); Mean Corpuscular HGB Conc 34 % (32-34); Mean Corpuscular Hemoglobin 30 pg (28-32); Mean Corpuscular Volume 89 fl (84-94); Monocytes % (Auto) 9.3 % (0.0-7.3); Platelet Count 494 K/mm3 (140-440); Red Cell Distribution Width 17.8 % (13.2-15.2)
[2018-06-18 05:37] LABS: Calcium 7.8 mg/dL (8.4-10.2)
[2018-06-18] MEDS: APRESOLINE PO SCH ×3 (06:09→21:41)
[2018-06-18] MEDS: PEPCID IV SCH (09:11)
[2018-06-18] MEDS: FOLVITE PO SCH (09:12)
[2018-06-18] MEDS: FERROUS SULFATE PO SCH ×2 (09:14→21:42)
[2018-06-18] MEDS: TYLENOL PO PRN ×2 (09:24→13:47)
[2018-06-18] MEDS ORDERED: LOVENOX SUB-Q SCH (10:00)
--- NOTE | 2018-06-18 13:05 | Progress Note ---
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 Continue pain control PRN Bilateral pneumonia (possibly aspiration) Monitor respiratory status Continue Nebs PRN Continue antibiotic Sepsis Continue Zosyn Acute kidney injury (obstructive uropathy vs contrast nephropathy) was on hemodialysis temporarily. Stable renal function. Dialysis catheter removed as per nephrology Continue to monitor BMP and kidney fuction Had bilateral nephrostomy tubes placed 05/14/[address] Freeman. Acute deep venous thrombosis Anticoagulation previously on hold because of anemia, bilateral nephrostomy tubes and abdominal surgery We will restart anticoagulation -- will check with Heme Start Lovenox SC 1mg/kg BID Moderate to severe protein calorie malnutrition Continue tube feeding Started on diet and tolerating Hypokalemia, now resolved Potassium and mag replacement as needed Anemia due to Chronic illness s/p PRBC transfusion Bilateral moderate pleural effusion, for thoracentesis Plan is for LTAC. - Patient Problems (1) Acute renal failure Current Visit: Yes Status: Acute Qualifiers: Acute renal failure type: unspecified Qualified Code(s): N17.9 - Acute kidney failure, unspecified (2) Bilateral pleural effusion Current Visit: Yes Status: Acute (3) Edema Current Visit: Yes Status: Acute Qualifiers: Edema type: unspecified Qualified Code(s): R60.9 - Edema, unspecified (4) Hypertensive urgency, malignant Current Visit: Yes Status: Acute (5) Intestinal obstruction Current Visit: Yes Status: Acute (6) Pelvic mass in male Current Visit: Yes Status: Acute (7) Pneumonia involving left lung Current Visit: Yes Status: Acute (8) Sepsis Current Visit: Yes Status: Acute (9) UTI (urinary tract infection) Current Visit: Yes Status: Acute History Interval history: No new issues overnight. Hospitalist Physical - Constitutional Vitals: Temp Pulse Resp BP Pulse Ox 97.6 F 85 18 148/90 98 06/18/18 11:47 06/18/18 11:47 06/18/18 11:47 06/18/18 11:47 06/18/18 11:47 General appearance: Present: no acute distress, well-nourished - EENT Eyes: Present: PERRL, EOM intact ENT: hearing intact, clear oral mucosa, dentition normal - Neck Neck: Present: supple, normal ROM - Respiratory Respiratory effort: normal Respiratory: bilateral: CTA - Cardiovascular Rhythm: regular Heart Sounds: Present: S1 & S2. Absent: gallop, rub - Extremities Extremities: no ischemia, No edema, Full ROM - Abdominal General gastrointestinal: soft, non-tender, non-distended, normal bowel sounds - Integumentary Integumentary: Present: clear, warm, dry - Neurologic Neurologic: CNII-XII intact, moves all extremities Results - Labs CBC & Chem 7: 06/18/18 04:04 06/18/18 04:04 Labs: Laboratory Last Values WBC 10.5 K/mm3 (4.5-11.0) 06/18/18 04:04 RBC 3.00 M/mm3 (3.65-5.03) L 06/18/18 04:04 Hgb 8.9 gm/dl (11.8-15.2) L 06/18/18 04:04 Hct 26.5 % (35.5-45.6) L 06/18/18 04:04 MCV 89 fl (84-94) 06/18/18 04:04 MCH 30 pg (28-32) 06/18/18 04:04 MCHC 34 % (32-34) 06/18/18 04:04 RDW 17.8 % (13.2-15.2) H 06/18/18 04:04 Plt Count 494 K/mm3 (140-440) H 06/18/18 04:04 Lymph % (Auto) 7.9 % (13.4-35.0) L 06/18/18 04:04 Gilliam % (Auto) 9.3 % (0.0-7.3) H 06/18/18 04:04 Eos % (Auto) 0.8 % (0.0-4.3) 06/18/18 04:04 Baso % (Auto) 0.8 % (0.0-1.8) 06/18/18 04:04 Lymph # 0.8 K/mm3 (1.2-5.4) L 06/18/18 04:04 Gilliam # 1.0 K/mm3 (0.0-0.8) H 06/18/18 04:04 Eos # 0.1 K/mm3 (0.0-0.4) 06/18/18 04:04 Baso # 0.1 K/mm3 (0.0-0.1) 06/18/18 04:04 Add Manual Diff Complete 05/31/18 04:50 Total Counted 100 05/31/18 04:50 Seg Neutrophils % 81.2 % (40.0-70.0) H 06/18/18 04:04 Seg Neuts % (Manual) 91.0 % (40.0-70.0) H 05/31/18 04:50 Band Neutrophils % 2.0 % 05/31/18 04:50 Lymphocytes % (Manual) 2.0 % (13.4-35.0) L 05/31/18 04:50 Reactive Lymphs % (Man) 0 % 05/31/18 04:50 Monocytes % (Manual) 2.0 % (0.0-7.3) 05/31/18 04:50 Eosinophils % (Manual) 1.0 % (0.0-4.3) 05/31/18 04:50 Basophils % (Manual) 0 % (0.0-1.8) 05/31/18 04:50 Metamyelocytes % 1.0 % 05/31/18 04:50 Myelocytes % 1.0 % 05/31/18 04:50 Promyelocytes % 0 % 05/31/18 04:50 Blast Cells % 0 % 05/31/18 04:50 Nucleated RBC % Not Reportable 05/31/18 04:50 Seg Neutrophils # 8.6 K/mm3 (1.8-7.7) H 06/18/18 04:04 Seg Neutrophils # Man 17.0 K/mm3 (1.8-7.7) H 05/31/18 04:50 Band Neutrophils # 0.4 K/mm3 05/31/18 04:50 Lymphocytes # (Manual) 0.4 K/mm3 (1.2-5.4) L 05/31/18 04:50 Abs React Lymphs (Man) 0.0 K/mm3 05/31/18 04:50 Monocytes # (Manual) 0.4 K/mm3 (0.0-0.8) 05/31/18 04:50 Eosinophils # (Manual) 0.2 K/mm3 (0.0-0.4) 05/31/18 04:50 Basophils # (Manual) 0.0 K/mm3 (0.0-0.1) 05/31/18 04:50 Metamyelocytes # 0.2 K/mm3 05/31/18 04:50 Myelocytes # 0.2 K/mm3 05/31/18 04:50 Promyelocytes # 0.0 K/mm3 05/31/18 04:50 Blast Cells # 0.0 K/mm3 05/31/18 04:50 WBC Morphology Not Reportable 05/31/18 04:50 Hypersegmented Neuts Not Reportable 05/31/18 04:50 Hyposegmented Neuts Not Reportable 05/31/18 04:50 Hypogranular Neuts Not Reportable 05/31/18 04:50 Smudge Cells Not Reportable 05/31/18 04:50 Toxic Granulation Not Reportable 05/31/18 04:50 Toxic Vacuolation Not Reportable 05/31/18 04:50 Dohle Bodies Not Reportable 05/31/18 04:50 Pelger-Huet Anomaly Not Reportable 05/31/18 04:50 Mahesh Rods Not Reportable 05/31/18 04:50 Platelet Estimate Appears normal 05/31/18 04:50 Clumped Platelets Not Reportable 05/31/18 04:50 Plt Clumps, EDTA Not Reportable 05/31/18 04:50 Large Platelets Not Reportable 05/31/18 04:50 Giant Platelets Not Reportable 05/31/18 04:50 Platelet Satelliting Not Reportable 05/31/18 04:50 Plt Morphology Comment Not Reportable 05/31/18 04:50 RBC Morphology Not Reportable 05/31/18 04:50 Dimorphic RBCs Not Reportable 05/31/18 04:50 Polychromasia Not Reportable 05/31/18 04:50 Hypochromasia Few 05/31/18 04:50 Poikilocytosis Not Reportable 05/31/18 04:50 Anisocytosis 1+ 05/31/18 04:50 Microcytosis Few 05/31/18 04:50 Macrocytosis Not Reportable 05/31/18 04:50 Spherocytes Not Reportable 05/31/18 04:50 Pappenheimer Bodies Not Reportable 05/31/18 04:50 Sickle Cells Not Reportable 05/31/18 04:50 Target Cells Rare 05/31/18 04:50 Tear Drop Cells Not Reportable 05/31/18 04:50 Ovalocytes 1+ 05/31/18 04:50 Helmet Cells Not Reportable 05/31/18 04:50 Hernandez-Reynolds Bodies Not Reportable 05/31/18 04:50 [place] Rings Not Reportable 05/31/18 04:50 [place] Cells Not Reportable 05/31/18 04:50 Bite Cells Not Reportable 05/31/18 04:50 Crenated Cell Not Reportable 05/31/18 04:50 Elliptocytes Not Reportable 05/31/18 04:50 Acanthocytes (Spur) Not Reportable 05/31/18 04:50 Rouleaux Not Reportable 05/31/18 04:50 Hemoglobin C Crystals Not Reportable 05/31/18 04:50 Schistocytes Not Reportable 05/31/18 04:50 Malaria parasites Not Reportable 05/31/18 04:50 Mk Bodies Not Reportable 05/31/18 04:50 Hem Pathologist Commnt No 05/31/18 04:50 PT 16.3 Sec. (12.2-14.9) H 06/14/18 09:50 INR 1.24 (0.87-1.13) H 06/14/18 09:50 APTT 40.0 Sec. (24.2-36.6) H 05/23/18 09:03 POC ABG pH 7.362 (7.35-7.45) 05/31/18 09:58 POC ABG pCO2 36.4 (35-45) 05/31/18 09:58 POC ABG pO2 101 (80-105) 05/31/18 09:58 POC ABG HCO3 20.7 05/31/18 09:58 POC ABG Total CO2 22 05/31/18 09:58 POC ABG O2 Sat 98 05/31/18 09:58 POC ABG Base Excess -5 05/31/18 09:58 FiO2 40 % 05/31/18 09:58 Sodium 128 mmol/L (137-145) L 06/18/18 04:04 Potassium 4.2 mmol/L (3.6-5.0) 06/18/18 04:04 Chloride 101.1 mmol/L (98-107) 06/18/18 04:04 Carbon Dioxide 18 mmol/L (22-30) L 06/18/18 04:04 Anion Gap 13 mmol/L 06/18/18 04:04 BUN 88 mg/dL (9-20) H 06/18/18 04:04 Creatinine 3.1 mg/dL (0.8-1.5) H 06/18/18 04:04 Estimated GFR 26 ml/min 06/18/18 04:04 BUN/Creatinine Ratio 28 % 06/18/18 04:04 Glucose 129 mg/dL (75-100) H 06/18/18 04:04 POC Glucose 140 (70-105) H 06/17/18 16:58 Hemoglobin A1c 5.7 % (4-6) 05/14/18 05:05 Lactic Acid 3.80 mmol/L (0.7-2.0) H* 05/26/18 11:00 Calcium 7.8 mg/dL (8.4-10.2) L 06/18/18 04:04 Phosphorus 6.20 mg/dL (2.5-4.5) H 06/18/18 04:04 Magnesium 2.20 mg/dL (1.7-2.3) 06/18/18 04:04 Iron 24 ug/dL (49-181) L 05/16/18 07:02 TIBC 160 mcg/dL (250-450) L 05/16/18 07:02 Ferritin 325.8 ng/mL (13.0-400.0) 05/16/18 07:02 Total Bilirubin 0.30 mg/dL (0.1-1.2) 06/12/18 04:12 AST 45 units/L (5-40) H 06/12/18 04:12 ALT 29 units/L (7-56) 06/12/18 04:12 Alkaline Phosphatase 200 units/L (35-129) H 06/12/18 04:12 Lactate Dehydrogenase 297 units/L (91-180) H 06/08/18 21:36 Total Creatine Kinase 34 units/L (55-170) L 06/12/18 04:12 CK-MB (CK-2) 2.3 ng/mL (0.0-4.0) 05/25/18 22:46 CK-MB (CK-2) Rel Index 1.4 (0-4) 05/25/18 22:46 C-Reactive Protein 3.60 mg/dL (0.00-1.30) H 06/10/18 17:15 Total Protein 7.3 g/dL (6.3-8.2) 06/12/18 04:12 Albumin 1.7 g/dL (3.9-5) L 06/12/18 04:12 Albumin/Globulin Ratio 0.3 % 06/12/18 04:12 Prealbumin 0.130 g/L (0.200-0.400) L 06/17/18 05:52 Triglycerides 112 mg/dL (2-149) 06/03/18 03:31 CA 19-9 Antigen 57 U/mL (<34) H 06/08/18 21:43 Prostate Specific Ag 0.96 ng/mL (0.00-4.00) 05/14/18 13:29 Free PSA See scanned result 06/08/18 21:44 % Free PSA Calc See scanned result 06/08/18 21:44 Total PSA See scanned result 06/08/18 21:44 Vitamin B12 359.2 pg/mL (211-911) 05/16/18 07:02 Folate 5.39 ng/mL (7.3-26.0) L 05/16/18 07:02 TSH 3.180 mlU/mL (0.270-4.200) 05/14/18 05:05 PTH Intact 65.37 pg/mL (15-65) H 05/14/18 05:05 Urine Color Yellow (Yellow) 06/11/18 07:41 Urine Turbidity Slightly-cloudy (Clear) 06/11/18 07:41 Urine pH 6.0 (5.0-7.0) 06/11/18 07:41 Ur Specific [place] 1.011 (1.003-1.030) 06/11/18 07:41 Urine Protein 100 mg/dl mg/dL (Negative) 06/11/18 07:41 Urine Glucose (UA) 150 mg/dL (Negative) 06/11/18 07:41 Urine Ketones Neg mg/dL (Negative) 06/11/18 07:41 Urine Blood Sm (Negative) 06/11/18 07:41 Urine Nitrite Neg (Negative) 06/11/18 07:41 Urine Bilirubin Neg (Negative) 06/11/18 07:41 Urine Urobilinogen < 2.0 mg/dL (<2.0) 06/11/18 07:41 Ur Leukocyte Esterase Sm (Negative) 06/11/18 07:41 Urine WBC (Auto) 10.0 /HPF (0.0-6.0) H 06/11/18 07:41 Urine RBC (Auto) 5.0 /HPF (0.0-6.0) 06/11/18 07:41 U Epithel Cells (Auto) 1.0 /HPF (0-13.0) 06/11/18 07:41 Urine Bacteria (Auto) 1+ /HPF (Negative) 06/11/18 07:41 Urine WBC Clumps Few /HPF 05/13/18 19:39 Urine Mucus Few /HPF 06/11/18 07:41 Ur Yeast w [place]pha[place] Few /HPF 06/11/18 07:41 Urine Yeast (Budding) Few /HPF 06/11/18 07:41 Urine Creatinine 41.2 mg/dL (0.1-20.0) H 06/11/18 07:41 Urine Sodium 79 mmol/L 06/11/18 07:41 Urine Potassium 13.27 mmol/L 06/11/18 07:41 Urine Chloride 49.2 mmolL (110-250) L 06/11/18 07:41 Urine Total Protein 142 mg/dL (5-11.8) H 06/11/18 07:41 Fluid Type Ascitic 06/03/18 Unknown Fluid Color Yellow 06/03/18 Unknown Fluid Appearance Cloudy 06/03/18 Unknown Fluid WBC 14642 /mm3 06/03/18 Unknown Fluid RBC 9 /mm3 06/03/18 Unknown Fluid Seg Neutrophils 98.0 % 06/03/18 Unknown Fluid Lymphocytes 2.0 % 06/03/18 Unknown Fluid Reactive Lymphs 0 % 06/03/18 Unknown Fluid Monocytes 0 % 06/03/18 Unknown Fluid Eosinophils 0 % 06/03/18 Unknown Fluid Basophils 0 % 06/03/18 Unknown Fluid Glucose 10 mg/dL (40-70) L 06/03/18 Unknown Fluid Total Protein 3.7 (15.0-45.0) L 06/03/18 Unknown Fluid Albumin 0.8 g/dL 06/03/18 Unknown Fluid LDH > 78704 06/03/18 Unknown Fluid Amylase 126 06/03/18 Unknown Vancomycin Trough 25.1 ug/mL (5.0-20.0) H 05/25/18 22:46 Random Vancomycin 34.3 ug/mL (0-40.0) 05/26/18 11:01 Urine Opiates Screen Presumptive negative 06/11/18 07:41 Urine Methadone Screen Presumptive negative 06/11/18 07:41 Ur Barbiturates Screen Presumptive negative 06/11/18 07:41 Ur Phencyclidine Scrn Presumptive negative 06/11/18 07:41 Ur Amphetamines Screen Presumptive negative 06/11/18 07:41 U Benzodiazepines Scrn Presumptive negative 06/11/18 07:41 Urine Cocaine Screen Presumptive negative 06/11/18 07:41 U Marijuana (THC) Screen Presumptive negative 06/11/18 07:41 Drugs of Abuse Note Disclamer 06/11/18 07:41 ZEUS Screen Negative (Negative) 05/14/18 05:05 Proteinase 3 (PR3) Ab <1.0 AI (<1.0) 05/14/18 05:05 Myeloperoxidase Ab <1.0 AI (<1.0) 05/14/18 05:05 Complement C3 147 mg/dL (82-185) 05/14/18 05:05 Complement C4 45 mg/dL (15-53) 05/14/18 05:05 Hepatitis A IgM Ab Nonreactive (NonReactive) 05/27/18 13:41 Hep Bs Antigen Non-reactive (Negative) 05/27/18 13:41 Hep B Core IgM Ab Non-reactive (NonReactive) 05/27/18 13:41 Hepatitis C Antibody Non-reactive (NonReactive) 05/27/18 13:41 Miscellaneous Test Flexitest 1 H 06/09/18 07:37 Blood Type O POSITIVE 06/09/18 13:24 Antibody Screen Negative 06/09/18 13:24 Crossmatch See Detail 06/09/18 13:24
--- NOTE | 2018-06-18 15:38 | Progress Note ---
Assessment and Plan MARYLOU / Bilateral [place] - F/u BUN/Cr s/p Drainage & Perc Nephrostomy tubes Prostate Ca - F/u Mx Lytes - Give Bicarb drip & f/u HypoNa & Acidosis HTN - Adjust meds for better control Subjective Date of service: 06/18/18 Principal diagnosis: Acute Hypoxemic Resp Failure; Sepsis Syndrome; Acute VTE; Prostate Cancer Objective - Vital Signs Vital signs: Vital Signs - 12hr 06/18/18 06/18/18 06/18/18 04:26 08:09 10:00 Temperature 98.5 F 98.2 F Pulse Rate 91 H Respiratory 20 18 22 Rate Blood Pressure 167/105 Blood Pressure 150/93 [Left] O2 Sat by Pulse 99 Oximetry 06/18/18 11:47 Temperature 97.6 F Pulse Rate 85 Respiratory 18 Rate Blood Pressure 148/90 Blood Pressure [Left] O2 Sat by Pulse 98 Oximetry - General Appearance General appearance: other (Awake & responsive) EENT: PERRL Neck: no JVD Respiratory: Present: Other (Good air entry) Cardiology: regular, S1S2 Gastrointestinal: other (Ramy perc Nephrostomies draining) - Lab 06/18/18 04:04 06/18/18 04:04 Most recent lab results Calcium 7.8 mg/dL (8.4-10.2) L 06/18/18 04:04 Phosphorus 6.20 mg/dL (2.5-4.5) H 06/18/18 04:04 Magnesium 2.20 mg/dL (1.7-2.3) 06/18/18 04:04 Urine Creatinine 41.2 mg/dL (0.1-20.0) H 06/11/18 07:41 Urine Sodium 79 mmol/L 06/11/18 07:41 Urine Total Protein 142 mg/dL (5-11.8) H 06/11/18 07:41
[2018-06-18] MEDS: HumuLIN R SUB-Q SCH ×2 (17:20→18:56)
[2018-06-18] MEDS ORDERED: TPN ADULT 2,016 ML IV SCH (20:00)
[2018-06-19] MEDS: APRESOLINE PO SCH ×3 (06:03→21:01)
[2018-06-19] MEDS: SODIUM BICARBONATE 150 MEQ in D5W 1,000 ML IV SCH ×2 (06:04→21:02)
[2018-06-19 07:11] LABS: BUN/Creatinine Ratio 28; Blood Urea Nitrogen 78 mg/dL (9-20); Calcium 7.1 mg/dL (8.4-10.2); Hemolysis Index 4
[2018-06-19 09:08] LABS: Calcium 7.7 mg/dL (8.4-10.2)
[2018-06-19] MEDS: HumuLIN R SUB-Q SCH ×4 (09:19→17:30)
[2018-06-19] MEDS: FOLVITE PO SCH (10:56)
[2018-06-19] MEDS: ZOSYN/NS 2.25 GM/50ML 2.25 GM/50 ML BAG IV SCH ×2 (10:56→21:02)
[2018-06-19] MEDS: FERROUS SULFATE PO SCH ×2 (10:56→21:01)
[2018-06-19] MEDS: PEPCID IV SCH (10:56)
--- NOTE | 2018-06-19 11:04 | Progress Note ---
Assessment and Plan MARYLOU / Bilateral [place] - F/u improving BUN/Cr s/p Drainage & Perc Nephrostomy tubes Prostate Ca - F/u Mx Lytes - Resolved HypoNa & Acidosis, change IVF to NS HTN - Improved control control Subjective Date of service: 06/19/18 Principal diagnosis: sq cell ca - prostate area Interval history: No new complaints Objective - Vital Signs Vital signs: Vital Signs - 12hr 06/19/18 06/19/18 06/19/18 02:08 04:57 08:00 Temperature 98.6 F 98.2 F 97.3 F L Pulse Rate 83 74 77 Respiratory 18 18 20 Rate Blood Pressure 159/98 143/85 138/84 [Left] O2 Sat by Pulse 96 97 97 Oximetry - General Appearance General appearance: other (Awake & responsive) EENT: PERRL Neck: no JVD Respiratory: Present: Other (Good air entry) Cardiology: regular, S1S2 Gastrointestinal: other (Drains in place) - Lab 06/18/18 04:04 06/19/18 07:59 Most recent lab results Calcium 7.7 mg/dL (8.4-10.2) L 06/19/18 07:59 Phosphorus 6.40 mg/dL (2.5-4.5) H 06/19/18 06:20 Magnesium 2.10 mg/dL (1.7-2.3) 06/19/18 07:59 Urine Creatinine 41.2 mg/dL (0.1-20.0) H 06/11/18 07:41 Urine Sodium 79 mmol/L 06/11/18 07:41 Urine Total Protein 142 mg/dL (5-11.8) H 06/11/18 07:41
--- NOTE | 2018-06-19 11:34 | Progress Note ---
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 Continue pain control PRN Bilateral pneumonia (possibly aspiration) Monitor respiratory status Continue Nebs PRN Continue antibiotic Sepsis Continue Zosyn Acute kidney injury (obstructive uropathy vs contrast nephropathy) was on hemodialysis temporarily. Stable renal function. Dialysis catheter removed as per nephrology Continue to monitor BMP and kidney fuction Had bilateral nephrostomy tubes placed 05/14/[address] Freeman. Acute deep venous thrombosis Anticoagulation previously on hold because of anemia, bilateral nephrostomy tubes and abdominal surgery We will restart anticoagulation -- will check with Heme Start Lovenox SC 1mg/kg BID Moderate to severe protein calorie malnutrition Continue tube feeding Started on diet and tolerating Hypokalemia, now resolved Potassium and mag replacement as needed Anemia due to Chronic illness s/p PRBC transfusion Bilateral moderate pleural effusion, for thoracentesis Plan is for LTAC. However, nurse reports that patient has not been approved. - Patient Problems (1) Acute renal failure Current Visit: Yes Status: Acute Qualifiers: Acute renal failure type: unspecified Qualified Code(s): N17.9 - Acute kidney failure, unspecified (2) Bilateral pleural effusion Current Visit: Yes Status: Acute (3) Edema Current Visit: Yes Status: Acute Qualifiers: Edema type: unspecified Qualified Code(s): R60.9 - Edema, unspecified (4) Hypertensive urgency, malignant Current Visit: Yes Status: Acute (5) Intestinal obstruction Current Visit: Yes Status: Acute (6) Pelvic mass in male Current Visit: Yes Status: Acute (7) Pneumonia involving left lung Current Visit: Yes Status: Acute (8) Sepsis Current Visit: Yes Status: Acute (9) UTI (urinary tract infection) Current Visit: Yes Status: Acute History Interval history: No new issues overnight. Hospitalist Physical - Constitutional Vitals: Temp Pulse Resp BP Pulse Ox 97.3 F L 77 20 138/84 97 06/19/18 08:00 06/19/18 08:00 06/19/18 08:00 06/19/18 08:00 06/19/18 08:00 General appearance: Present: no acute distress, well-nourished - EENT Eyes: Present: PERRL, EOM intact ENT: hearing intact, clear oral mucosa, dentition normal - Neck Neck: Present: supple, normal ROM - Respiratory Respiratory effort: normal Respiratory: bilateral: CTA - Cardiovascular Rhythm: regular Heart Sounds: Present: S1 & S2. Absent: gallop, rub - Extremities Extremities: no ischemia, No edema, Full ROM - Abdominal General gastrointestinal: soft, non-tender, non-distended, normal bowel sounds - Integumentary Integumentary: Present: clear, warm, dry - Neurologic Neurologic: CNII-XII intact, moves all extremities Results - Labs CBC & Chem 7: 06/18/18 04:04 06/19/18 07:59 Labs: Laboratory Last Values WBC 10.5 K/mm3 (4.5-11.0) 06/18/18 04:04 RBC 3.00 M/mm3 (3.65-5.03) L 06/18/18 04:04 Hgb 8.9 gm/dl (11.8-15.2) L 06/18/18 04:04 Hct 26.5 % (35.5-45.6) L 06/18/18 04:04 MCV 89 fl (84-94) 06/18/18 04:04 MCH 30 pg (28-32) 06/18/18 04:04 MCHC 34 % (32-34) 06/18/18 04:04 RDW 17.8 % (13.2-15.2) H 06/18/18 04:04 Plt Count 494 K/mm3 (140-440) H 06/18/18 04:04 Lymph % (Auto) 7.9 % (13.4-35.0) L 06/18/18 04:04 [place] % (Auto) 9.3 % (0.0-7.3) H 06/18/18 04:04 Eos % (Auto) 0.8 % (0.0-4.3) 06/18/18 04:04 Baso % (Auto) 0.8 % (0.0-1.8) 06/18/18 04:04 Lymph # 0.8 K/mm3 (1.2-5.4) L 06/18/18 04:04 [place] # 1.0 K/mm3 (0.0-0.8) H 06/18/18 04:04 Eos # 0.1 K/mm3 (0.0-0.4) 06/18/18 04:04 Baso # 0.1 K/mm3 (0.0-0.1) 06/18/18 04:04 Add Manual Diff Complete 05/31/18 04:50 Total Counted 100 05/31/18 04:50 Seg Neutrophils % 81.2 % (40.0-70.0) H 06/18/18 04:04 Seg Neuts % (Manual) 91.0 % (40.0-70.0) H 05/31/18 04:50 Band Neutrophils % 2.0 % 05/31/18 04:50 Lymphocytes % (Manual) 2.0 % (13.4-35.0) L 05/31/18 04:50 Reactive Lymphs % (Man) 0 % 05/31/18 04:50 Monocytes % (Manual) 2.0 % (0.0-7.3) 05/31/18 04:50 Eosinophils % (Manual) 1.0 % (0.0-4.3) 05/31/18 04:50 Basophils % (Manual) 0 % (0.0-1.8) 05/31/18 04:50 Metamyelocytes % 1.0 % 05/31/18 04:50 Myelocytes % 1.0 % 05/31/18 04:50 Promyelocytes % 0 % 05/31/18 04:50 Blast Cells % 0 % 05/31/18 04:50 Nucleated RBC % Not Reportable 05/31/18 04:50 Seg Neutrophils # 8.6 K/mm3 (1.8-7.7) H 06/18/18 04:04 Seg Neutrophils # Man 17.0 K/mm3 (1.8-7.7) H 05/31/18 04:50 Band Neutrophils # 0.4 K/mm3 05/31/18 04:50 Lymphocytes # (Manual) 0.4 K/mm3 (1.2-5.4) L 05/31/18 04:50 Abs React Lymphs (Man) 0.0 K/mm3 05/31/18 04:50 Monocytes # (Manual) 0.4 K/mm3 (0.0-0.8) 05/31/18 04:50 Eosinophils # (Manual) 0.2 K/mm3 (0.0-0.4) 05/31/18 04:50 Basophils # (Manual) 0.0 K/mm3 (0.0-0.1) 05/31/18 04:50 Metamyelocytes # 0.2 K/mm3 05/31/18 04:50 Myelocytes # 0.2 K/mm3 05/31/18 04:50 Promyelocytes # 0.0 K/mm3 05/31/18 04:50 Blast Cells # 0.0 K/mm3 05/31/18 04:50 WBC Morphology Not Reportable 05/31/18 04:50 Hypersegmented Neuts Not Reportable 05/31/18 04:50 Hyposegmented Neuts Not Reportable 05/31/18 04:50 Hypogranular Neuts Not Reportable 05/31/18 04:50 Smudge Cells Not Reportable 05/31/18 04:50 Toxic Granulation Not Reportable 05/31/18 04:50 Toxic Vacuolation Not Reportable 05/31/18 04:50 Dohle Bodies Not Reportable 05/31/18 04:50 Pelger-Huet Anomaly Not Reportable 05/31/18 04:50 Mahesh Rods Not Reportable 05/31/18 04:50 Platelet Estimate Appears normal 05/31/18 04:50 Clumped Platelets Not Reportable 05/31/18 04:50 Plt Clumps, EDTA Not Reportable 05/31/18 04:50 Large Platelets Not Reportable 05/31/18 04:50 Giant Platelets Not Reportable 05/31/18 04:50 Platelet Satelliting Not Reportable 05/31/18 04:50 Plt Morphology Comment Not Reportable 05/31/18 04:50 RBC Morphology Not Reportable 05/31/18 04:50 Dimorphic RBCs Not Reportable 05/31/18 04:50 Polychromasia Not Reportable 05/31/18 04:50 Hypochromasia Few 05/31/18 04:50 Poikilocytosis Not Reportable 05/31/18 04:50 Anisocytosis 1+ 05/31/18 04:50 Microcytosis Few 05/31/18 04:50 Macrocytosis Not Reportable 05/31/18 04:50 Spherocytes Not Reportable 05/31/18 04:50 Pappenheimer Bodies Not Reportable 05/31/18 04:50 Sickle Cells Not Reportable 05/31/18 04:50 Target Cells Rare 05/31/18 04:50 Tear Drop Cells Not Reportable 05/31/18 04:50 Ovalocytes 1+ 05/31/18 04:50 Helmet Cells Not Reportable 05/31/18 04:50 [place] Bodies Not Reportable 05/31/18 04:50 E[place]ile Rings Not Reportable 05/31/18 04:50 [place] Cells Not Reportable 05/31/18 04:50 Bite Cells Not Reportable 05/31/18 04:50 Crenated Cell Not Reportable 05/31/18 04:50 Elliptocytes Not Reportable 05/31/18 04:50 Acanthocytes (Spur) Not Reportable 05/31/18 04:50 Rouleaux Not Reportable 05/31/18 04:50 Hemoglobin C Crystals Not Reportable 05/31/18 04:50 Schistocytes Not Reportable 05/31/18 04:50 Malaria parasites Not Reportable 05/31/18 04:50 Mk Bodies Not Reportable 05/31/18 04:50 Hem Pathologist Commnt No 05/31/18 04:50 PT 16.3 Sec. (12.2-14.9) H 06/14/18 09:50 INR 1.24 (0.87-1.13) H 06/14/18 09:50 APTT 40.0 Sec. (24.2-36.6) H 05/23/18 09:03 POC ABG pH 7.362 (7.35-7.45) 05/31/18 09:58 POC ABG pCO2 36.4 (35-45) 05/31/18 09:58 POC ABG pO2 101 (80-105) 05/31/18 09:58 POC ABG HCO3 20.7 05/31/18 09:58 POC ABG Total CO2 22 05/31/18 09:58 POC ABG O2 Sat 98 05/31/18 09:58 POC ABG Base Excess -5 05/31/18 09:58 FiO2 40 % 05/31/18 09:58 Sodium 137 mmol/L (137-145) D 06/19/18 07:59 Potassium 3.8 mmol/L (3.6-5.0) 06/19/18 07:59 Chloride 98.4 mmol/L (98-107) 06/19/18 07:59 Carbon Dioxide 27 mmol/L (22-30) 06/19/18 07:59 Anion Gap 15 mmol/L 06/19/18 07:59 BUN 80 mg/dL (9-20) H 06/19/18 07:59 Creatinine 2.9 mg/dL (0.8-1.5) H 06/19/18 07:59 Estimated GFR 28 ml/min 06/19/18 07:59 BUN/Creatinine Ratio 28 % 06/19/18 07:59 Glucose 123 mg/dL (75-100) H 06/19/18 07:59 POC Glucose 130 (70-105) H 06/19/18 06:49 Hemoglobin A1c 5.7 % (4-6) 05/14/18 05:05 Lactic Acid 3.80 mmol/L (0.7-2.0) H* 05/26/18 11:00 Calcium 7.7 mg/dL (8.4-10.2) L 06/19/18 07:59 Phosphorus 6.40 mg/dL (2.5-4.5) H 06/19/18 06:20 Magnesium 2.10 mg/dL (1.7-2.3) 06/19/18 07:59 Iron 24 ug/dL (49-181) L 05/16/18 07:02 TIBC 160 mcg/dL (250-450) L 05/16/18 07:02 Ferritin 325.8 ng/mL (13.0-400.0) 05/16/18 07:02 Total Bilirubin 0.30 mg/dL (0.1-1.2) 06/12/18 04:12 AST 45 units/L (5-40) H 06/12/18 04:12 ALT 29 units/L (7-56) 06/12/18 04:12 Alkaline Phosphatase 200 units/L (35-129) H 06/12/18 04:12 Lactate Dehydrogenase 297 units/L (91-180) H 06/08/18 21:36 Total Creatine Kinase 34 units/L (55-170) L 06/12/18 04:12 CK-MB (CK-2) 2.3 ng/mL (0.0-4.0) 05/25/18 22:46 CK-MB (CK-2) Rel Index 1.4 (0-4) 05/25/18 22:46 C-Reactive Protein 3.60 mg/dL (0.00-1.30) H 06/10/18 17:15 Total Protein 7.3 g/dL (6.3-8.2) 06/12/18 04:12 Albumin 1.7 g/dL (3.9-5) L 06/12/18 04:12 Albumin/Globulin Ratio 0.3 % 06/12/18 04:12 Prealbumin 0.130 g/L (0.200-0.400) L 06/17/18 05:52 Triglycerides 56 mg/dL (2-149) 06/19/18 06:20 CA 19-9 Antigen 57 U/mL (<34) H 06/08/18 21:43 Prostate Specific Ag 0.96 ng/mL (0.00-4.00) 05/14/18 13:29 Free PSA See scanned result 06/08/18 21:44 % Free PSA Calc See scanned result 06/08/18 21:44 Total PSA See scanned result 06/08/18 21:44 Vitamin B12 359.2 pg/mL (211-911) 05/16/18 07:02 Folate 5.39 ng/mL (7.3-26.0) L 05/16/18 07:02 TSH 3.180 mlU/mL (0.270-4.200) 05/14/18 05:05 PTH Intact 65.37 pg/mL (15-65) H 05/14/18 05:05 Urine Color Yellow (Yellow) 06/11/18 07:41 Urine Turbidity Slightly-cloudy (Clear) 06/11/18 07:41 Urine pH 6.0 (5.0-7.0) 06/11/18 07:41 Ur Specific [place] 1.011 (1.003-1.030) 06/11/18 07:41 Urine Protein 100 mg/dl mg/dL (Negative) 06/11/18 07:41 Urine Glucose (UA) 150 mg/dL (Negative) 06/11/18 07:41 Urine Ketones Neg mg/dL (Negative) 06/11/18 07:41 Urine Blood Sm (Negative) 06/11/18 07:41 Urine Nitrite Neg (Negative) 06/11/18 07:41 Urine Bilirubin Neg (Negative) 06/11/18 07:41 Urine Urobilinogen < 2.0 mg/dL (<2.0) 06/11/18 07:41 Ur Leukocyte Esterase Sm (Negative) 06/11/18 07:41 Urine WBC (Auto) 10.0 /HPF (0.0-6.0) H 06/11/18 07:41 Urine RBC (Auto) 5.0 /HPF (0.0-6.0) 06/11/18 07:41 U Epithel Cells (Auto) 1.0 /HPF (0-13.0) 06/11/18 07:41 Urine Bacteria (Auto) 1+ /HPF (Negative) 06/11/18 07:41 Urine WBC Clumps Few /HPF 05/13/18 19:39 Urine Mucus Few /HPF 06/11/18 07:41 Ur Yeast w [place] Few /HPF 06/11/18 07:41 Urine Yeast (Budding) Few /HPF 06/11/18 07:41 Urine Creatinine 41.2 mg/dL (0.1-20.0) H 06/11/18 07:41 Urine Sodium 79 mmol/L 06/11/18 07:41 Urine Potassium 13.27 mmol/L 06/11/18 07:41 Urine Chloride 49.2 mmolL (110-250) L 06/11/18 07:41 Urine Total Protein 142 mg/dL (5-11.8) H 06/11/18 07:41 Fluid Type Ascitic 06/03/18 Unknown Fluid Color Yellow 06/03/18 Unknown Fluid Appearance Cloudy 06/03/18 Unknown Fluid WBC 28040 /mm3 06/03/18 Unknown Fluid RBC 9 /mm3 06/03/18 Unknown Fluid Seg Neutrophils 98.0 % 06/03/18 Unknown Fluid Lymphocytes 2.0 % 06/03/18 Unknown Fluid Reactive Lymphs 0 % 06/03/18 Unknown Fluid Monocytes 0 % 06/03/18 Unknown Fluid Eosinophils 0 % 06/03/18 Unknown Fluid Basophils 0 % 06/03/18 Unknown Fluid Glucose 10 mg/dL (40-70) L 06/03/18 Unknown Fluid Total Protein 3.7 (15.0-45.0) L 06/03/18 Unknown Fluid Albumin 0.8 g/dL 06/03/18 Unknown Fluid LDH > 05707 06/03/18 Unknown Fluid Amylase 126 06/03/18 Unknown Vancomycin Trough 25.1 ug/mL (5.0-20.0) H 05/25/18 22:46 Random Vancomycin 34.3 ug/mL (0-40.0) 05/26/18 11:01 Urine Opiates Screen Presumptive negative 06/11/18 07:41 Urine Methadone Screen Presumptive negative 06/11/18 07:41 Ur Barbiturates Screen Presumptive negative 06/11/18 07:41 Ur Phencyclidine Scrn Presumptive negative 06/11/18 07:41 Ur Amphetamines Screen Presumptive negative 06/11/18 07:41 U Benzodiazepines Scrn Presumptive negative 06/11/18 07:41 Urine Cocaine Screen Presumptive negative 06/11/18 07:41 U Marijuana (THC) Screen Presumptive negative 06/11/18 07:41 Drugs of Abuse Note Disclamer 06/11/18 07:41 ZEUS Screen Negative (Negative) 05/14/18 05:05 Proteinase 3 (PR3) Ab <1.0 AI (<1.0) 05/14/18 05:05 Myeloperoxidase Ab <1.0 AI (<1.0) 05/14/18 05:05 Complement C3 147 mg/dL (82-185) 05/14/18 05:05 Complement C4 45 mg/dL (15-53) 05/14/18 05:05 Hepatitis A IgM Ab Nonreactive (NonReactive) 05/27/18 13:41 Hep Bs Antigen Non-reactive (Negative) 05/27/18 13:41 Hep B Core IgM Ab Non-reactive (NonReactive) 05/27/18 13:41 Hepatitis C Antibody Non-reactive (NonReactive) 05/27/18 13:41 Miscellaneous Test Flexitest 1 H 06/09/18 07:37 Blood Type O POSITIVE 06/09/18 13:24 Antibody Screen Negative 06/09/18 13:24 Crossmatch See Detail 06/09/18 13:24
--- NOTE | 2018-06-19 13:54 | Hem/Onc Progress Note ---
Assessment and Plan #bowel obstruction - s/p diverting colostomy 05/26 sx notes -mentions matted mass #radiology Pelvic mass Large pelvic mass between bladder and rectum with large lymph nodes, s/p cystoscopy prostate area bx - sq cell features- anal vs lung pth from ascites and pleural fluid reviewed # CT had shown bowel obstruction - s/p diverting colostomy # anemia - PRBC as needed low folate - on replacement # h/o leukocytosis on 05/22 - we will follow - likely reactive # h/o Acute kidney injury due to pelvic mass - Nephrology following. Ultrasound Kidneys showed bilat hydronephrosis CT Abd shows Pelvic mass with multiple large lymph nodes Had bilateral nephrostomy tubes placed 05/14/[address] Freeman. 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 Ct chest was done - CTA - no PE treatment for pneumonia LTAC eval CA 19-9 - 57 - elevated PSA not elevated Once clinically better - OP follow up for more IX and Rx options for his sq cell ca - Patient Problems (1) Pelvic mass in male Current Visit: Yes Status: Acute Subjective Date of service: 06/19/18 Principal diagnosis: sq cell ca Interval history: pt had diverting colostomy 05/26 has colostomy on 06/14 - rt chest thoracentesis done Objective - Constitutional Vitals: Last Vital Signs Temp 97.3 F L 06/19/18 08:00 Pulse 77 06/19/18 08:00 Resp 20 06/19/18 08:00 BP 138/84 06/19/18 08:00 Pulse Ox 100 06/19/18 10:00 Pain Intensity (0-10): denies any pain General appearance: no acute distress Performance status: 3-limited selfcare - EENT ENT: clear oral mucosa Lymph node exam: negative cervical, negative supraclavicular - Respiratory Respiratory: bilateral: CTA - Cardiovascular Heart Sounds: Present: S1 & S2 Extremities: No edema - Gastrointestinal General gastrointestinal: Present: soft, other (colostomy) - Integumentary Integumentary: warm - Musculoskeletal Musculoskeletal: generalized weakness - Neurologic Neurologic: moves all extremities - Labs Lab Results: Laboratory Results - last 24 hr 06/18/18 06/18/18 06/19/18 14:15 17:54 01:45 Sodium Potassium Chloride Carbon Dioxide Anion Gap BUN Creatinine Estimated GFR BUN/Creatinine Ratio Glucose POC Glucose 143 H 138 H 141 H Calcium Phosphorus Magnesium Triglycerides 06/19/18 06/19/18 06/19/18 06:20 06:49 07:59 Sodium TNR 137 D Potassium 4.2 3.8 Chloride 93.9 L 98.4 Carbon Dioxide 24 27 Anion Gap 24 15 BUN 78 H 80 H Creatinine 2.8 H 2.9 H Estimated GFR 29 28 BUN/Creatinine Ratio 28 28 Glucose TNR 123 H POC Glucose 130 H Calcium 7.1 L 7.7 L Phosphorus 6.40 H Magnesium 2.20 Triglycerides 56 06/19/18 07:59 Sodium Potassium Chloride Carbon Dioxide Anion Gap BUN Creatinine Estimated GFR BUN/Creatinine Ratio Glucose POC Glucose Calcium Phosphorus Magnesium 2.10 Triglycerides
--- NOTE | 2018-06-19 14:25 | Progress Note ---
Assessment and Plan Acute hypoxemic respiratory failure, possibly secondary to 2. Bilateral pneumonia, possibly aspiration. Sepsis syndrome. 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 Acute deep venous thrombosis. Hypertensive urgency. Hyperkalemia, now resolved. Moderate to severe protein calorie malnutrition Hypernatremia. Hypochloremia. Anemia, normocytic. (ABLA) - continue supplemental oxygen to keep sats > 90% - repeat thoracentesis if clinically decompensates - optimize cardiac function - continue anticoagulation for VTE prophylaxis (repeat dopplers -ve for VTE) - continue bronchodilators with pulmonary hygiene per RT - continue aspiration precautions - continue HD/UF for toxin and volume clearance - continue anti-infective's per ID recs - continue TPN for now (enteral nutrition once cleared by surgery) - Malignancy per heme-oncologist - continue mobility protocol for pressure ulcer prophylaxis - s/p surgery 05/26 (had ex-lap; matted abdominal organs, pus) - s/p bilateral nephrostomy tubes placed 05/14/[address] Freeman. - continue other care per attending / other consultants - prn paracentesis - continue other care per attending / other consultants .... discharge planning ongoing concurrently ... re-evaluate in am & prn Subjective Date of service: 06/19/18 Principal diagnosis: Acute Hypoxemic Resp Failure; Sepsis Syndrome; Acute VTE; Prostate Cancer Interval history: Patient is seen today for: Acute Hypoxemic Resp Failure; Sepsis Syndrome; Acute VTE; Prostate Cancer Seen and examined at bedside; 24hour events reviewed; nursing and respiratory care staff consulted; no adverse overnight events reported to me; resting peacefully in bed; No N/V/F/C; no new issues respiratory-kramer Objective Vital Signs - 12hr 06/19/18 06/19/18 06/19/18 04:57 08:00 10:00 Temperature 98.2 F 97.3 F L Pulse Rate 74 77 Respiratory 18 20 Rate Blood Pressure 143/85 138/84 [Left] O2 Sat by Pulse 97 97 100 Oximetry Constitutional: no acute distress, alert, other (chronically ill looking middle aged AAM, normocephalic and atraumatic, ) Eyes: non-icteric ENT: oropharynx moist, other (Mallampati 2) Neck: supple, no lymphadenopathy, no JVD, other (no thyromegaly) Effort: mildly labored Ascultation: Bilateral: diminished breath sounds, rhonchi (scant in bases) Percussion: Bilateral: not dull, dull (bases) Cardiovascular: regular rate and rhythm, other (No R/M) Gastrointestinal: hypoactive bowel sounds, soft, tender (mild), other (Distended ; No palpable HSM, bilateral nephrostomy tubes,Colostomy, ZAKI drain) Integumentary: other (femoral vascath) Extremities: no cyanosis, no edema, pulses normal, no ischemia or petechiae Neurologic: normal mental status, non-focal exam, pupils equal and round, other (weak) Psychiatric: mood appropriate, affect normal CBC and BMP: 06/21/18 05:50 06/21/18 05:50 ABG, PT/INR, D-dimer: ABG POC ABG pH 7.362 (7.35-7.45) 05/31/18 09:58 POC ABG pCO2 36.4 (35-45) 05/31/18 09:58 POC ABG pO2 101 (80-105) 05/31/18 09:58 POC ABG HCO3 20.7 05/31/18 09:58 POC ABG Total CO2 22 05/31/18 09:58 POC ABG O2 Sat 98 05/31/18 09:58 PT/INR, D-dimer PT 16.3 Sec. (12.2-14.9) H 06/14/18 09:50 INR 1.24 (0.87-1.13) H 06/14/18 09:50 Abnormal lab findings: Abnormal Labs 05/13/18 05/13/18 05/13/18 04:27 04:27 19:39 WBC RBC 3.13 L Hgb 9.4 L Hct 26.8 L MCHC 35 H RDW Plt Count Lymph % (Auto) [place] % (Auto) 9.6 H Lymph # [place] # Seg Neutrophils % Seg Neuts % (Manual) Lymphocytes % (Manual) Seg Neutrophils # Seg Neutrophils # Man Lymphocytes # (Manual) PT INR APTT POC ABG pH POC ABG pCO2 POC ABG pO2 Sodium 132 L Potassium 5.5 H Chloride 94.1 L Carbon Dioxide 19 L BUN 72 H Creatinine 14.4 H Glucose POC Glucose Lactic Acid Calcium Phosphorus Magnesium Iron TIBC AST ALT Alkaline Phosphatase Lactate Dehydrogenase Total Creatine Kinase C-Reactive Protein Total Protein Albumin 2.8 L Prealbumin CA 19-9 Antigen Folate PTH Intact Urine WBC (Auto) Urine Creatinine 66.0 H Urine Chloride 27.8 L Urine Total Protein 24 H Fluid Glucose Fluid Total Protein Vancomycin Trough Miscellaneous Test Crossmatch 05/13/18 05/14/18 05/14/18 20:00 05:05 05:05 WBC RBC Hgb Hct MCHC RDW Plt Count Lymph % (Auto) [place] % (Auto) Lymph # [place] # Seg Neutrophils % Seg Neuts % (Manual) Lymphocytes % (Manual) Seg Neutrophils # Seg Neutrophils # Man Lymphocytes # (Manual) PT INR APTT POC ABG pH POC ABG pCO2 POC ABG pO2 Sodium 132 L 131 L Potassium 5.2 H 5.8 H Chloride 93.0 L 95.6 L Carbon Dioxide 19 L 20 L BUN 74 H 81 H Creatinine 15.0 H 16.6 H Glucose 134 H 127 H POC Glucose Lactic Acid Calcium 8.2 L 7.9 L Phosphorus 6.30 H Magnesium Iron TIBC AST ALT Alkaline Phosphatase Lactate Dehydrogenase Total Creatine Kinase 236 H C-Reactive Protein Total Protein Albumin Prealbumin CA 19-9 Antigen Folate PTH Intact 65.37 H Urine WBC (Auto) Urine Creatinine Urine Chloride Urine Total Protein Fluid Glucose Fluid Total Protein Vancomycin Trough Miscellaneous Test Crossmatch 05/14/18 05/14/18 05/14/18 09:28 10:56 13:29 WBC RBC Hgb Hct MCHC RDW Plt Count Lymph % (Auto) [place] % (Auto) Lymph # [place] # Seg Neutrophils % Seg Neuts % (Manual) Lymphocytes % (Manual) Seg Neutrophils # Seg Neutrophils # Man Lymphocytes # (Manual) PT INR APTT 38.2 H POC ABG pH POC ABG pCO2 POC ABG pO2 Sodium Potassium Chloride Carbon Dioxide BUN Creatinine Glucose POC Glucose 127 H 126 H Lactic Acid Calcium Phosphorus Magnesium Iron TIBC AST ALT Alkaline Phosphatase Lactate Dehydrogenase Total Creatine Kinase C-Reactive Protein Total Protein Albumin Prealbumin CA 19-9 Antigen Folate PTH Intact Urine WBC (Auto) Urine Creatinine Urine Chloride Urine Total Protein Fluid Glucose Fluid Total Protein Vancomycin Trough Miscellaneous Test Crossmatch 05/15/18 05/15/1818 08:06 08:06 07:02 WBC RBC 2.84 L 2.74 L Hgb 8.5 L 8.5 L Hct 24.2 L 23.5 L MCHC 35 H 36 H RDW Plt Count Lymph % (Auto) [place] % (Auto) 10.4 H 11.0 H Lymph # 1.1 L [place] # 0.9 H Seg Neutrophils % 72.6 H Seg Neuts % (Manual) Lymphocytes % (Manual) Seg Neutrophils # Seg Neutrophils # Man Lymphocytes # (Manual) PT INR APTT POC ABG pH POC ABG pCO2 POC ABG pO2 Sodium Potassium Chloride Carbon Dioxide 19 L BUN 66 H Creatinine 12.0 H Glucose 115 H POC Glucose Lactic Acid Calcium 8.1 L Phosphorus Magnesium Iron TIBC AST ALT Alkaline Phosphatase Lactate Dehydrogenase Total Creatine Kinase C-Reactive Protein Total Protein Albumin Prealbumin CA 19-9 Antigen Folate PTH Intact Urine WBC (Auto) Urine Creatinine Urine Chloride Urine Total Protein Fluid Glucose Fluid Total Protein Vancomycin Trough Miscellaneous Test Crossmatch 05/16/18 05/16/18 05/17/18 07:02 07:02 05:08 WBC RBC 2.78 L Hgb 8.2 L Hct 23.9 L MCHC RDW Plt Count Lymph % (Auto) [place] % (Auto) 13.9 H Lymph # [place] # 0.9 H Seg Neutrophils % Seg Neuts % (Manual) Lymphocytes % (Manual) Seg Neutrophils # Seg Neutrophils # Man Lymphocytes # (Manual) PT INR APTT POC ABG pH POC ABG pCO2 POC ABG pO2 Sodium Potassium Chloride Carbon Dioxide BUN 28 H Creatinine 2.4 H D Glucose POC Glucose Lactic Acid Calcium 8.3 L Phosphorus Magnesium 1.50 L Iron 24 L TIBC 160 L AST ALT Alkaline Phosphatase Lactate Dehydrogenase Total Creatine Kinase C-Reactive Protein Total Protein Albumin Prealbumin CA 19-9 Antigen Folate 5.39 L PTH Intact Urine WBC (Auto) Urine Creatinine Urine Chloride Urine Total Protein Fluid Glucose Fluid Total Protein Vancomycin Trough Miscellaneous Test Crossmatch 05/17/18 05/18/18 05/18/18 05:08 05:57 05:57 WBC RBC 2.79 L Hgb 8.3 L Hct 24.0 L MCHC 35 H RDW Plt Count Lymph % (Auto) [place] % (Auto) 11.8 H Lymph # [place] # 0.9 H Seg Neutrophils % Seg Neuts % (Manual) Lymphocytes % (Manual) Seg Neutrophils # Seg Neutrophils # Man Lymphocytes # (Manual) PT INR APTT POC ABG pH POC ABG pCO2 POC ABG pO2 Sodium Potassium Chloride Carbon Dioxide BUN Creatinine Glucose POC Glucose Lactic Acid Calcium 7.7 L 8.0 L Phosphorus Magnesium 1.60 L Iron TIBC AST ALT Alkaline Phosphatase Lactate Dehydrogenase Total Creatine Kinase C-Reactive Protein Total Protein Albumin Prealbumin CA 19-9 Antigen Folate PTH Intact Urine WBC (Auto) Urine Creatinine Urine Chloride Urine Total Protein Fluid Glucose Fluid Total Protein Vancomycin Trough Miscellaneous Test Crossmatch 05/19/18 05/19/18 05/20/18 05:33 05:33 05:38 WBC RBC 2.95 L Hgb 8.8 L Hct 25.8 L MCHC RDW Plt Count Lymph % (Auto) 10.1 L [place] % (Auto) Lymph # 1.1 L [place] # Seg Neutrophils % 85.2 H Seg Neuts % (Manual) Lymphocytes % (Manual) Seg Neutrophils # 9.0 H Seg Neutrophils # Man Lymphocytes # (Manual) PT INR APTT POC ABG pH POC ABG pCO2 POC ABG pO2 Sodium 135 L Potassium Chloride Carbon Dioxide BUN Creatinine Glucose 132 H POC Glucose Lactic Acid Calcium 7.8 L 8.3 L Phosphorus Magnesium 1.40 L Iron TIBC AST ALT Alkaline Phosphatase Lactate Dehydrogenase Total Creatine Kinase C-Reactive Protein Total Protein Albumin Prealbumin CA 19-9 Antigen Folate PTH Intact Urine WBC (Auto) Urine Creatinine Urine Chloride Urine Total Protein Fluid Glucose Fluid Total Protein Vancomycin Trough Miscellaneous Test Crossmatch 05/21/18 05/21/18 05/22/18 04:46 15:30 06:49 WBC 20.0 H RBC 2.70 L Hgb 7.8 L Hct 23.3 L MCHC RDW Plt Count Lymph % (Auto) [place] % (Auto) Lymph # [place] # Seg Neutrophils % Seg Neuts % (Manual) 85.0 H Lymphocytes % (Manual) 4.0 L Seg Neutrophils # Seg Neutrophils # Man 17.0 H Lymphocytes # (Manual) 0.8 L PT INR APTT POC ABG pH POC ABG pCO2 POC ABG pO2 Sodium 135 L Potassium 3.5 L Chloride Carbon Dioxide 21 L BUN 22 H Creatinine Glucose POC Glucose Lactic Acid Calcium 8.1 L Phosphorus Magnesium Iron TIBC AST ALT Alkaline Phosphatase Lactate Dehydrogenase Total Creatine Kinase C-Reactive Protein Total Protein Albumin Prealbumin CA 19-9 Antigen Folate PTH Intact Urine WBC (Auto) 28.0 H Urine Creatinine Urine Chloride Urine Total Protein Fluid Glucose Fluid Total Protein Vancomycin Trough Miscellaneous Test Crossmatch 05/22/18 05/22/18 05/23/18 06:49 11:23 09:03 WBC RBC Hgb Hct MCHC RDW Plt Count Lymph % (Auto) [place] % (Auto) Lymph # [place] # Seg Neutrophils % Seg Neuts % (Manual) Lymphocytes % (Manual) Seg Neutrophils # Seg Neutrophils # Man Lymphocytes # (Manual) PT INR APTT POC ABG pH POC ABG pCO2 POC ABG pO2 Sodium 134 L Potassium 3.5 L Chloride Carbon Dioxide 21 L BUN 35 H 36 H Creatinine 1.7 H Glucose 107 H POC Glucose Lactic Acid Calcium 7.9 L Phosphorus Magnesium 2.50 H Iron TIBC AST ALT Alkaline Phosphatase Lactate Dehydrogenase Total Creatine Kinase C-Reactive Protein Total Protein Albumin Prealbumin CA 19-9 Antigen Folate PTH Intact Urine WBC (Auto) Urine Creatinine Urine Chloride Urine Total Protein Fluid Glucose Fluid Total Protein Vancomycin Trough Miscellaneous Test Crossmatch See Detail 05/23/18 05/23/18 05/23/18 09:03 09:03 17:34 WBC 26.3 H RBC 3.57 L Hgb 10.4 L Hct 31.1 L D MCHC RDW Plt Count Lymph % (Auto) [place] % (Auto) Lymph # [place] # Seg Neutrophils % Seg Neuts % (Manual) Lymphocytes % (Manual) Seg Neutrophils # Seg Neutrophils # Man Lymphocytes # (Manual) PT 18.3 H INR 1.43 H APTT 40.0 H POC ABG pH POC ABG pCO2 POC ABG pO2 Sodium Potassium Chloride Carbon Dioxide BUN Creatinine Glucose POC Glucose 108 H Lactic Acid Calcium Phosphorus Magnesium Iron TIBC AST ALT Alkaline Phosphatase Lactate Dehydrogenase Total Creatine Kinase C-Reactive Protein Total Protein Albumin Prealbumin CA 19-9 Antigen Folate PTH Intact Urine WBC (Auto) Urine Creatinine Urine Chloride Urine Total Protein Fluid Glucose Fluid Total Protein Vancomycin Trough Miscellaneous Test Crossmatch 05/23/18 05/24/18 05/24/18 21:14 04:43 08:04 WBC RBC Hgb Hct MCHC RDW Plt Count Lymph % (Auto) [place] % (Auto) Lymph # [place] # Seg Neutrophils % Seg Neuts % (Manual) Lymphocytes % (Manual) Seg Neutrophils # Seg Neutrophils # Man Lymphocytes # (Manual) PT INR APTT POC ABG pH POC ABG pCO2 POC ABG pO2 Sodium 146 H Potassium Chloride 108.6 H Carbon Dioxide BUN 33 H Creatinine Glucose 109 H POC Glucose 110 H 106 H Lactic Acid Calcium 8.3 L Phosphorus Magnesium 2.50 H Iron TIBC AST ALT Alkaline Phosphatase Lactate Dehydrogenase Total Creatine Kinase C-Reactive Protein Total Protein Albumin Prealbumin CA 19-9 Antigen Folate PTH Intact Urine WBC (Auto) Urine Creatinine Urine Chloride Urine Total Protein Fluid Glucose Fluid Total Protein Vancomycin Trough Miscellaneous Test Crossmatch 05/25/18 05/25/18 05/25/18 05:42 05:49 19:50 WBC RBC Hgb Hct MCHC RDW Plt Count Lymph % (Auto) [place] % (Auto) Lymph # [place] # Seg Neutrophils % Seg Neuts % (Manual) Lymphocytes % (Manual) Seg Neutrophils # Seg Neutrophils # Man Lymphocytes # (Manual) PT INR APTT POC ABG pH POC ABG pCO2 POC ABG pO2 Sodium 150 H Potassium Chloride 112.5 H Carbon Dioxide BUN 34 H Creatinine Glucose 102 H POC Glucose 107 H Lactic Acid Calcium Phosphorus Magnesium Iron TIBC AST ALT Alkaline Phosphatase Lactate Dehydrogenase Total Creatine Kinase C-Reactive Protein 34.50 H Total Protein Albumin Prealbumin CA 19-9 Antigen Folate PTH Intact Urine WBC (Auto) Urine Creatinine Urine Chloride Urine Total Protein Fluid Glucose Fluid Total Protein Vancomycin Trough Miscellaneous Test Crossmatch 05/25/18 05/25/18 05/25/18 19:50 21:05 22:46 WBC RBC Hgb Hct MCHC RDW Plt Count Lymph % (Auto) [place] % (Auto) Lymph # [place] # Seg Neutrophils % Seg Neuts % (Manual) Lymphocytes % (Manual) Seg Neutrophils # Seg Neutrophils # Man Lymphocytes # (Manual) PT INR APTT POC ABG pH 7.483 H POC ABG pCO2 24.0 L POC ABG pO2 72 L Sodium Potassium Chloride Carbon Dioxide BUN Creatinine Glucose POC Glucose Lactic Acid 5.90 H* Calcium Phosphorus Magnesium Iron TIBC AST ALT Alkaline Phosphatase Lactate Dehydrogenase Total Creatine Kinase C-Reactive Protein Total Protein Albumin Prealbumin CA 19-9 Antigen Folate PTH Intact Urine WBC (Auto) Urine Creatinine Urine Chloride Urine Total Protein Fluid Glucose Fluid Total Protein Vancomycin Trough 25.1 H Miscellaneous Test Crossmatch 05/25/18 05/26/18 05/26/18 22:46 00:21 00:51 WBC RBC Hgb Hct MCHC RDW Plt Count Lymph % (Auto) [place] % (Auto) Lymph # [place] # Seg Neutrophils % Seg Neuts % (Manual) Lymphocytes % (Manual) Seg Neutrophils # Seg Neutrophils # Man Lymphocytes # (Manual) PT INR APTT POC ABG pH POC ABG pCO2 POC ABG pO2 Sodium Potassium Chloride Carbon Dioxide BUN Creatinine Glucose POC Glucose 133 H Lactic Acid 8.10 H* 6.20 H* Calcium Phosphorus Magnesium Iron TIBC AST ALT Alkaline Phosphatase Lactate Dehydrogenase Total Creatine Kinase C-Reactive Protein Total Protein Albumin Prealbumin CA 19-9 Antigen Folate PTH Intact Urine WBC (Auto) Urine Creatinine Urine Chloride Urine Total Protein Fluid Glucose Fluid Total Protein Vancomycin Trough Miscellaneous Test Crossmatch 05/26/18 05/26/18 05/26/18 01:13 02:24 02:24 WBC 18.7 H RBC Hgb 11.6 L Hct MCHC RDW Plt Count Lymph % (Auto) [place] % (Auto) Lymph # [place] # Seg Neutrophils % Seg Neuts % (Manual) Lymphocytes % (Manual) Seg Neutrophils # Seg Neutrophils # Man Lymphocytes # (Manual) PT INR APTT POC ABG pH POC ABG pCO2 POC ABG pO2 Sodium 147 H Potassium 6.2 H* D Chloride 111.9 H Carbon Dioxide 19 L BUN 80 H Creatinine 5.1 H D Glucose 112 H POC Glucose Lactic Acid 5.20 H* Calcium 6.7 L D Phosphorus Magnesium Iron TIBC AST ALT Alkaline Phosphatase Lactate Dehydrogenase Total Creatine Kinase C-Reactive Protein Total Protein Albumin Prealbumin CA 19-9 Antigen Folate PTH Intact Urine WBC (Auto) Urine Creatinine Urine Chloride Urine Total Protein Fluid Glucose Fluid Total Protein Vancomycin Trough Miscellaneous Test Crossmatch 05/26/18 05/26/18 05/26/18 04:20 04:20 05:39 WBC RBC Hgb Hct MCHC RDW Plt Count Lymph % (Auto) [place] % (Auto) Lymph # [place] # Seg Neutrophils % Seg Neuts % (Manual) Lymphocytes % (Manual) Seg Neutrophils # Seg Neutrophils # Man Lymphocytes # (Manual) PT INR APTT POC ABG pH POC ABG pCO2 POC ABG pO2 Sodium 150 H Potassium Chloride 110.0 H Carbon Dioxide 19 L BUN 66 H Creatinine Glucose 166 H POC Glucose 187 H Lactic Acid 5.10 H* Calcium 6.9 L Phosphorus 6.70 H D Magnesium Iron TIBC AST ALT Alkaline Phosphatase Lactate Dehydrogenase Total Creatine Kinase C-Reactive Protein Total Protein Albumin Prealbumin CA 19-9 Antigen Folate PTH Intact Urine WBC (Auto) Urine Creatinine Urine Chloride Urine Total Protein Fluid Glucose Fluid Total Protein Vancomycin Trough Miscellaneous Test Crossmatch 05/26/18 05/26/18 05/26/18 06:02 07:29 11:00 WBC RBC Hgb Hct MCHC RDW Plt Count Lymph % (Auto) [place] % (Auto) Lymph # [place] # Seg Neutrophils % Seg Neuts % (Manual) Lymphocytes % (Manual) Seg Neutrophils # Seg Neutrophils # Man Lymphocytes # (Manual) PT INR APTT POC ABG pH POC ABG pCO2 28.8 L POC ABG pO2 Sodium Potassium Chloride Carbon Dioxide BUN Creatinine Glucose POC Glucose Lactic Acid 4.80 H* 3.80 H* Calcium Phosphorus Magnesium Iron TIBC AST ALT Alkaline Phosphatase Lactate Dehydrogenase Total Creatine Kinase C-Reactive Protein Total Protein Albumin Prealbumin CA 19-9 Antigen Folate PTH Intact Urine WBC (Auto) Urine Creatinine Urine Chloride Urine Total Protein Fluid Glucose Fluid Total Protein Vancomycin Trough Miscellaneous Test Crossmatch 05/26/18 05/26/18 05/26/18 11:01 12:28 18:00 WBC RBC Hgb Hct MCHC RDW Plt Count Lymph % (Auto) [place] % (Auto) Lymph # [place] # Seg Neutrophils % Seg Neuts % (Manual) Lymphocytes % (Manual) Seg Neutrophils # Seg Neutrophils # Man Lymphocytes # (Manual) PT INR APTT POC ABG pH POC ABG pCO2 POC ABG pO2 Sodium 150 H 151 H Potassium 5.3 H D 6.1 H* Chloride 110.3 H 117.0 H Carbon Dioxide 21 L 20 L BUN 75 H 77 H Creatinine 4.3 H D 4.6 H Glucose 161 H POC Glucose 114 H Lactic Acid Calcium 7.5 L 6.7 L Phosphorus Magnesium Iron TIBC AST 1041 H ALT 406 H Alkaline Phosphatase 281 H Lactate Dehydrogenase Total Creatine Kinase C-Reactive Protein Total Protein 4.4 L Albumin 1.3 L Prealbumin CA 19-9 Antigen Folate PTH Intact Urine WBC (Auto) Urine Creatinine Urine Chloride Urine Total Protein Fluid Glucose Fluid Total Protein Vancomycin Trough Miscellaneous Test Crossmatch 05/26/18 05/26/18 05/27/18 18:02 19:17 01:01 WBC 21.7 H RBC 2.70 L Hgb 7.8 L D Hct 24.6 L D MCHC RDW 15.3 H Plt Count Lymph % (Auto) [place] % (Auto) Lymph # [place] # Seg Neutrophils % Seg Neuts % (Manual) 94.0 H Lymphocytes % (Manual) 3.0 L Seg Neutrophils # Seg Neutrophils # Man 20.4 H Lymphocytes # (Manual) 0.7 L PT INR APTT POC ABG pH 7.159 L 7.205 L POC ABG pCO2 54.5 H 53.0 H POC ABG pO2 252 H Sodium Potassium Chloride Carbon Dioxide BUN Creatinine Glucose POC Glucose Lactic Acid Calcium Phosphorus Magnesium Iron TIBC AST ALT Alkaline Phosphatase Lactate Dehydrogenase Total Creatine Kinase C-Reactive Protein Total Protein Albumin Prealbumin CA 19-9 Antigen Folate PTH Intact Urine WBC (Auto) Urine Creatinine Urine Chloride Urine Total Protein Fluid Glucose Fluid Total Protein Vancomycin Trough Miscellaneous Test Crossmatch 05/27/18 05/27/18 05/27/18 05:15 05:15 06:11 WBC 24.9 H RBC 2.86 L Hgb 8.1 L Hct 25.9 L MCHC RDW 15.5 H Plt Count Lymph % (Auto) [place] % (Auto) Lymph # [place] # Seg Neutrophils % Seg Neuts % (Manual) Lymphocytes % (Manual) Seg Neutrophils # Seg Neutrophils # Man Lymphocytes # (Manual) PT INR APTT POC ABG pH 7.265 L POC ABG pCO2 46.2 H POC ABG pO2 111 H Sodium 149 H Potassium 6.9 H* Chloride 113.5 H Carbon Dioxide BUN 89 H Creatinine 5.2 H Glucose 118 H POC Glucose Lactic Acid Calcium 7.0 L Phosphorus 9.70 H D Magnesium Iron TIBC AST 876 H ALT 408 H Alkaline Phosphatase Lactate Dehydrogenase Total Creatine Kinase C-Reactive Protein Total Protein 5.2 L Albumin 1.5 L Prealbumin CA 19-9 Antigen Folate PTH Intact Urine WBC (Auto) Urine Creatinine Urine Chloride Urine Total Protein Fluid Glucose Fluid Total Protein Vancomycin Trough Miscellaneous Test Crossmatch 05/27/18 05/27/18 05/27/18 08:48 10:22 10:22 WBC RBC Hgb Hct MCHC RDW Plt Count Lymph % (Auto) [place] % (Auto) Lymph # [place] # Seg Neutrophils % Seg Neuts % (Manual) Lymphocytes % (Manual) Seg Neutrophils # Seg Neutrophils # Man Lymphocytes # (Manual) PT INR APTT POC ABG pH POC ABG pCO2 POC ABG pO2 Sodium 146 H Potassium 6.1 H* Chloride 108.2 H Carbon Dioxide 21 L BUN 88 H Creatinine 5.6 H Glucose 163 H POC Glucose 164 H Lactic Acid Calcium 6.7 L Phosphorus Magnesium Iron TIBC AST ALT Alkaline Phosphatase Lactate Dehydrogenase Total Creatine Kinase C-Reactive Protein 40.70 H Total Protein Albumin Prealbumin CA 19-9 Antigen Folate PTH Intact Urine WBC (Auto) Urine Creatinine Urine Chloride Urine Total Protein Fluid Glucose Fluid Total Protein Vancomycin Trough Miscellaneous Test Crossmatch 05/27/18 05/27/18 05/27/18 13:02 17:39 23:27 WBC RBC Hgb Hct MCHC RDW Plt Count Lymph % (Auto) [place] % (Auto) Lymph # [place] # Seg Neutrophils % Seg Neuts % (Manual) Lymphocytes % (Manual) Seg Neutrophils # Seg Neutrophils # Man Lymphocytes # (Manual) PT INR APTT POC ABG pH POC ABG pCO2 POC ABG pO2 Sodium Potassium Chloride Carbon Dioxide BUN Creatinine Glucose POC Glucose 59 L 132 H Lactic Acid Calcium Phosphorus Magnesium Iron TIBC AST ALT Alkaline Phosphatase Lactate Dehydrogenase Total Creatine Kinase C-Reactive Protein Total Protein Albumin Prealbumin CA 19-9 Antigen Folate PTH Intact Urine WBC (Auto) Urine Creatinine Urine Chloride Urine Total Protein Fluid Glucose Fluid Total Protein Vancomycin Trough Miscellaneous Test Flexitest 1 H Crossmatch 05/27/18 05/28/18 05/28/18 Unknown 04:32 05:00 WBC RBC Hgb Hct MCHC RDW Plt Count Lymph % (Auto) [place] % (Auto) Lymph # [place] # Seg Neutrophils % Seg Neuts % (Manual) Lymphocytes % (Manual) Seg Neutrophils # Seg Neutrophils # Man Lymphocytes # (Manual) PT INR APTT POC ABG pH POC ABG pCO2 POC ABG pO2 134 H Sodium Potassium Chloride Carbon Dioxide BUN 69 H Creatinine 4.4 H Glucose 118 H POC Glucose Lactic Acid Calcium 8.0 L D Phosphorus 6.80 H D Magnesium Iron TIBC AST ALT Alkaline Phosphatase Lactate Dehydrogenase Total Creatine Kinase C-Reactive Protein Total Protein Albumin Prealbumin CA 19-9 Antigen Folate PTH Intact Urine WBC (Auto) 120.0 H Urine Creatinine Urine Chloride Urine Total Protein Fluid Glucose Fluid Total Protein Vancomycin Trough Miscellaneous Test Crossmatch 05/28/18 05/28/18 05/28/18 05:00 05:27 13:04 WBC 26.5 H RBC 2.69 L Hgb 7.7 L Hct 23.6 L MCHC RDW Plt Count Lymph % (Auto) [place] % (Auto) Lymph # [place] # Seg Neutrophils % Seg Neuts % (Manual) 96.0 H Lymphocytes % (Manual) 0 L Seg Neutrophils # Seg Neutrophils # Man 25.4 H Lymphocytes # (Manual) 0.0 L PT INR APTT POC ABG pH POC ABG pCO2 POC ABG pO2 Sodium Potassium Chloride Carbon Dioxide BUN Creatinine Glucose POC Glucose 128 H 155 H Lactic Acid Calcium Phosphorus Magnesium Iron TIBC AST ALT Alkaline Phosphatase Lactate Dehydrogenase Total Creatine Kinase C-Reactive Protein Total Protein Albumin Prealbumin CA 19-9 Antigen Folate PTH Intact Urine WBC (Auto) Urine Creatinine Urine Chloride Urine Total Protein Fluid Glucose Fluid Total Protein Vancomycin Trough Miscellaneous Test Crossmatch 05/28/18 05/29/18 05/29/18 17:56 03:35 04:00 WBC RBC Hgb Hct MCHC RDW Plt Count Lymph % (Auto) [place] % (Auto) Lymph # [place] # Seg Neutrophils % Seg Neuts % (Manual) Lymphocytes % (Manual) Seg Neutrophils # Seg Neutrophils # Man Lymphocytes # (Manual) PT INR APTT POC ABG pH 7.471 H POC ABG pCO2 POC ABG pO2 78 L Sodium Potassium Chloride Carbon Dioxide BUN 50 H Creatinine 3.9 H Glucose POC Glucose 110 H Lactic Acid Calcium 7.7 L Phosphorus Magnesium 1.50 L Iron TIBC AST 218 H ALT 204 H Alkaline Phosphatase Lactate Dehydrogenase Total Creatine Kinase C-Reactive Protein Total Protein 5.4 L Albumin 1.6 L Prealbumin CA 19-9 Antigen Folate PTH Intact Urine WBC (Auto) Urine Creatinine Urine Chloride Urine Total Protein Fluid Glucose Fluid Total Protein Vancomycin Trough Miscellaneous Test Crossmatch 05/29/18 05/29/18 05/30/18 11:51 23:56 04:54 WBC RBC Hgb Hct MCHC RDW Plt Count Lymph % (Auto) [place] % (Auto) Lymph # [place] # Seg Neutrophils % Seg Neuts % (Manual) Lymphocytes % (Manual) Seg Neutrophils # Seg Neutrophils # Man Lymphocytes # (Manual) PT INR APTT POC ABG pH POC ABG pCO2 POC ABG pO2 Sodium Potassium Chloride Carbon Dioxide BUN Creatinine Glucose POC Glucose 131 H 119 H 115 H Lactic Acid Calcium Phosphorus Magnesium Iron TIBC AST ALT Alkaline Phosphatase Lactate Dehydrogenase Total Creatine Kinase C-Reactive Protein Total Protein Albumin Prealbumin CA 19-9 Antigen Folate PTH Intact Urine WBC (Auto) Urine Creatinine Urine Chloride Urine Total Protein Fluid Glucose Fluid Total Protein Vancomycin Trough Miscellaneous Test Crossmatch 05/30/18 05/30/1818 05:07 05:15 05:15 WBC 16.2 H RBC 2.53 L Hgb 7.4 L Hct 21.9 L MCHC RDW Plt Count Lymph % (Auto) [place] % (Auto) Lymph # [place] # Seg Neutrophils % Seg Neuts % (Manual) Lymphocytes % (Manual) Seg Neutrophils # Seg Neutrophils # Man Lymphocytes # (Manual) PT INR APTT POC ABG pH POC ABG pCO2 34.5 L POC ABG pO2 133 H Sodium 135 L Potassium Chloride 97.5 L Carbon Dioxide BUN 69 H Creatinine 5.4 H Glucose 105 H POC Glucose Lactic Acid Calcium 7.5 L Phosphorus 5.30 H D Magnesium Iron TIBC AST ALT Alkaline Phosphatase Lactate Dehydrogenase Total Creatine Kinase C-Reactive Protein Total Protein Albumin Prealbumin CA 19-9 Antigen Folate PTH Intact Urine WBC (Auto) Urine Creatinine Urine Chloride Urine Total Protein Fluid Glucose Fluid Total Protein Vancomycin Trough Miscellaneous Test Crossmatch 05/30/18 05/30/18 05/31/18 12:13 17:10 04:50 WBC 18.7 H RBC 2.86 L Hgb 8.2 L Hct 24.8 L MCHC RDW Plt Count Lymph % (Auto) [place] % (Auto) Lymph # [place] # Seg Neutrophils % Seg Neuts % (Manual) 91.0 H Lymphocytes % (Manual) 2.0 L Seg Neutrophils # Seg Neutrophils # Man 17.0 H Lymphocytes # (Manual) 0.4 L PT INR APTT POC ABG pH POC ABG pCO2 POC ABG pO2 Sodium Potassium Chloride Carbon Dioxide BUN Creatinine Glucose POC Glucose 132 H 122 H Lactic Acid Calcium Phosphorus Magnesium Iron TIBC AST ALT Alkaline Phosphatase Lactate Dehydrogenase Total Creatine Kinase C-Reactive Protein Total Protein Albumin Prealbumin CA 19-9 Antigen Folate PTH Intact Urine WBC (Auto) Urine Creatinine Urine Chloride Urine Total Protein Fluid Glucose Fluid Total Protein Vancomycin Trough Miscellaneous Test Crossmatch 05/31/18 05/31/18 05/31/18 04:50 05:45 11:37 WBC RBC Hgb Hct MCHC RDW Plt Count Lymph % (Auto) [place] % (Auto) Lymph # [place] # Seg Neutrophils % Seg Neuts % (Manual) Lymphocytes % (Manual) Seg Neutrophils # Seg Neutrophils # Man Lymphocytes # (Manual) PT INR APTT POC ABG pH POC ABG pCO2 POC ABG pO2 Sodium 132 L Potassium Chloride 92.4 L Carbon Dioxide BUN 77 H Creatinine 5.9 H Glucose POC Glucose 111 H 136 H Lactic Acid Calcium 7.3 L Phosphorus 6.40 H D Magnesium Iron TIBC AST ALT Alkaline Phosphatase Lactate Dehydrogenase Total Creatine Kinase C-Reactive Protein Total Protein Albumin Prealbumin CA 19-9 Antigen Folate PTH Intact Urine WBC (Auto) Urine Creatinine Urine Chloride Urine Total Protein Fluid Glucose Fluid Total Protein Vancomycin Trough Miscellaneous Test Crossmatch 05/31/18 06/01/18 06/01/18 17:52 00:09 04:00 WBC RBC Hgb Hct MCHC RDW Plt Count Lymph % (Auto) [place] % (Auto) Lymph # [place] # Seg Neutrophils % Seg Neuts % (Manual) Lymphocytes % (Manual) Seg Neutrophils # Seg Neutrophils # Man Lymphocytes # (Manual) PT INR APTT POC ABG pH POC ABG pCO2 POC ABG pO2 Sodium Potassium Chloride 97.5 L Carbon Dioxide BUN 49 H Creatinine 4.2 H Glucose 104 H POC Glucose 115 H 114 H Lactic Acid Calcium 7.3 L Phosphorus 4.70 H D Magnesium Iron TIBC AST ALT Alkaline Phosphatase Lactate Dehydrogenase Total Creatine Kinase C-Reactive Protein Total Protein Albumin Prealbumin CA 19-9 Antigen Folate PTH Intact Urine WBC (Auto) Urine Creatinine Urine Chloride Urine Total Protein Fluid Glucose Fluid Total Protein Vancomycin Trough Miscellaneous Test Crossmatch 06/01/18 06/01/18 06/02/18 11:10 17:56 00:15 WBC RBC Hgb Hct MCHC RDW Plt Count Lymph % (Auto) [place] % (Auto) Lymph # [place] # Seg Neutrophils % Seg Neuts % (Manual) Lymphocytes % (Manual) Seg Neutrophils # Seg Neutrophils # Man Lymphocytes # (Manual) PT INR APTT POC ABG pH POC ABG pCO2 POC ABG pO2 Sodium Potassium Chloride Carbon Dioxide BUN Creatinine Glucose POC Glucose 123 H 126 H 135 H Lactic Acid Calcium Phosphorus Magnesium Iron TIBC AST ALT Alkaline Phosphatase Lactate Dehydrogenase Total Creatine Kinase C-Reactive Protein Total Protein Albumin Prealbumin CA 19-9 Antigen Folate PTH Intact Urine WBC (Auto) Urine Creatinine Urine Chloride Urine Total Protein Fluid Glucose Fluid Total Protein Vancomycin Trough Miscellaneous Test Crossmatch 06/02/18 06/02/18 06/02/18 05:23 12:42 13:05 WBC RBC Hgb Hct MCHC RDW Plt Count Lymph % (Auto) [place] % (Auto) Lymph # [place] # Seg Neutrophils % Seg Neuts % (Manual) Lymphocytes % (Manual) Seg Neutrophils # Seg Neutrophils # Man Lymphocytes # (Manual) PT 17.1 H INR 1.34 H APTT POC ABG pH POC ABG pCO2 POC ABG pO2 Sodium Potassium Chloride Carbon Dioxide BUN Creatinine Glucose POC Glucose 135 H 142 H Lactic Acid Calcium Phosphorus Magnesium Iron TIBC AST ALT Alkaline Phosphatase Lactate Dehydrogenase Total Creatine Kinase C-Reactive Protein Total Protein Albumin Prealbumin CA 19-9 Antigen Folate PTH Intact Urine WBC (Auto) Urine Creatinine Urine Chloride Urine Total Protein Fluid Glucose Fluid Total Protein Vancomycin Trough Miscellaneous Test Crossmatch 06/02/18 06/02/18 06/03/18 Unknown Unknown 00:54 WBC 20.8 H RBC 2.67 L Hgb 7.7 L Hct 23.0 L MCHC RDW Plt Count 500 H Lymph % (Auto) [place] % (Auto) Lymph # [place] # Seg Neutrophils % Seg Neuts % (Manual) Lymphocytes % (Manual) Seg Neutrophils # Seg Neutrophils # Man Lymphocytes # (Manual) PT INR APTT POC ABG pH POC ABG pCO2 POC ABG pO2 Sodium 136 L Potassium 3.5 L Chloride 96.9 L Carbon Dioxide BUN 62 H Creatinine 4.9 H Glucose 133 H POC Glucose 125 H Lactic Acid Calcium 7.2 L Phosphorus 5.00 H Magnesium Iron TIBC AST 46 H ALT 66 H Alkaline Phosphatase Lactate Dehydrogenase Total Creatine Kinase C-Reactive Protein Total Protein 5.7 L Albumin 1.5 L Prealbumin CA 19-9 Antigen Folate PTH Intact Urine WBC (Auto) Urine Creatinine Urine Chloride Urine Total Protein Fluid Glucose Fluid Total Protein Vancomycin Trough Miscellaneous Test Crossmatch 06/03/18 06/03/18 06/03/18 03:31 09:18 09:18 WBC RBC Hgb Hct MCHC RDW Plt Count Lymph % (Auto) [place] % (Auto) Lymph # [place] # Seg Neutrophils % Seg Neuts % (Manual) Lymphocytes % (Manual) Seg Neutrophils # Seg Neutrophils # Man Lymphocytes # (Manual) PT 17.1 H INR 1.34 H APTT POC ABG pH POC ABG pCO2 POC ABG pO2 Sodium 136 L Potassium Chloride Carbon Dioxide BUN 41 H Creatinine 3.4 H Glucose 129 H POC Glucose Lactic Acid Calcium 7.4 L Phosphorus Magnesium Iron TIBC AST ALT Alkaline Phosphatase Lactate Dehydrogenase Total Creatine Kinase C-Reactive Protein 11.10 H Total Protein Albumin Prealbumin CA 19-9 Antigen Folate PTH Intact Urine WBC (Auto) Urine Creatinine Urine Chloride Urine Total Protein Fluid Glucose Fluid Total Protein Vancomycin Trough Miscellaneous Test Crossmatch 06/03/18 06/03/18 06/03/18 16:07 21:18 Unknown WBC RBC Hgb Hct MCHC RDW Plt Count Lymph % (Auto) [place] % (Auto) Lymph # [place] # Seg Neutrophils % Seg Neuts % (Manual) Lymphocytes % (Manual) Seg Neutrophils # Seg Neutrophils # Man Lymphocytes # (Manual) PT INR APTT POC ABG pH POC ABG pCO2 POC ABG pO2 Sodium Potassium Chloride Carbon Dioxide BUN Creatinine Glucose POC Glucose 144 H 128 H Lactic Acid Calcium Phosphorus Magnesium Iron TIBC AST ALT Alkaline Phosphatase Lactate Dehydrogenase Total Creatine Kinase C-Reactive Protein Total Protein Albumin Prealbumin CA 19-9 Antigen Folate PTH Intact Urine WBC (Auto) Urine Creatinine Urine Chloride Urine Total Protein Fluid Glucose 10 L Fluid Total Protein 3.7 L Vancomycin Trough Miscellaneous Test Crossmatch 06/04/18 06/04/18 06/04/18 04:31 06:14 11:38 WBC RBC Hgb Hct MCHC RDW Plt Count Lymph % (Auto) [place] % (Auto) Lymph # [place] # Seg Neutrophils % Seg Neuts % (Manual) Lymphocytes % (Manual) Seg Neutrophils # Seg Neutrophils # Man Lymphocytes # (Manual) PT INR APTT POC ABG pH POC ABG pCO2 POC ABG pO2 Sodium Potassium Chloride Carbon Dioxide BUN 55 H Creatinine 3.7 H Glucose 151 H POC Glucose 145 H 129 H Lactic Acid Calcium 7.8 L Phosphorus 4.60 H Magnesium Iron TIBC AST ALT Alkaline Phosphatase Lactate Dehydrogenase Total Creatine Kinase C-Reactive Protein Total Protein Albumin Prealbumin CA 19-9 Antigen Folate PTH Intact Urine WBC (Auto) Urine Creatinine Urine Chloride Urine Total Protein Fluid Glucose Fluid Total Protein Vancomycin Trough Miscellaneous Test Crossmatch 06/04/18 06/04/18 06/04/18 17:09 20:00 21:29 WBC RBC Hgb 8.8 L Hct 27.3 L MCHC RDW Plt Count Lymph % (Auto) [place] % (Auto) Lymph # [place] # Seg Neutrophils % Seg Neuts % (Manual) Lymphocytes % (Manual) Seg Neutrophils # Seg Neutrophils # Man Lymphocytes # (Manual) PT INR APTT POC ABG pH POC ABG pCO2 POC ABG pO2 Sodium Potassium Chloride Carbon Dioxide BUN Creatinine Glucose POC Glucose 142 H 130 H Lactic Acid Calcium Phosphorus Magnesium Iron TIBC AST ALT Alkaline Phosphatase Lactate Dehydrogenase Total Creatine Kinase C-Reactive Protein Total Protein Albumin Prealbumin CA 19-9 Antigen Folate PTH Intact Urine WBC (Auto) Urine Creatinine Urine Chloride Urine Total Protein Fluid Glucose Fluid Total Protein Vancomycin Trough Miscellaneous Test Crossmatch 06/05/18 06/05/18 06/05/18 06:30 07:00 07:00 WBC 19.3 H RBC 2.94 L Hgb 8.3 L Hct 25.6 L MCHC RDW 15.7 H Plt Count 568 H Lymph % (Auto) 4.7 L [place] % (Auto) Lymph # 0.9 L [place] # 1.1 H Seg Neutrophils % 88.9 H Seg Neuts % (Manual) Lymphocytes % (Manual) Seg Neutrophils # 17.2 H Seg Neutrophils # Man Lymphocytes # (Manual) PT INR APTT POC ABG pH POC ABG pCO2 POC ABG pO2 Sodium Potassium 3.4 L D Chloride Carbon Dioxide BUN 67 H Creatinine 3.6 H Glucose 145 H POC Glucose 153 H Lactic Acid Calcium 7.9 L Phosphorus 4.60 H Magnesium Iron TIBC AST ALT Alkaline Phosphatase Lactate Dehydrogenase Total Creatine Kinase C-Reactive Protein Total Protein Albumin Prealbumin CA 19-9 Antigen Folate PTH Intact Urine WBC (Auto) Urine Creatinine Urine Chloride Urine Total Protein Fluid Glucose Fluid Total Protein Vancomycin Trough Miscellaneous Test Crossmatch 06/05/18 06/05/18 06/06/18 12:10 16:01 06:39 WBC RBC Hgb Hct MCHC RDW Plt Count Lymph % (Auto) [place] % (Auto) Lymph # [place] # Seg Neutrophils % Seg Neuts % (Manual) Lymphocytes % (Manual) Seg Neutrophils # Seg Neutrophils # Man Lymphocytes # (Manual) PT INR APTT POC ABG pH POC ABG pCO2 POC ABG pO2 Sodium Potassium Chloride Carbon Dioxide BUN Creatinine Glucose POC Glucose 150 H 129 H 131 H Lactic Acid Calcium Phosphorus Magnesium Iron TIBC AST ALT Alkaline Phosphatase Lactate Dehydrogenase Total Creatine Kinase C-Reactive Protein Total Protein Albumin Prealbumin CA 19-9 Antigen Folate PTH Intact Urine WBC (Auto) Urine Creatinine Urine Chloride Urine Total Protein Fluid Glucose Fluid Total Protein Vancomycin Trough Miscellaneous Test Crossmatch 06/06/18 06/06/18 06/06/18 07:14 07:14 07:14 WBC 16.5 H RBC 2.84 L Hgb 8.1 L Hct 25.2 L MCHC RDW 16.4 H Plt Count 526 H Lymph % (Auto) 6.5 L [place] % (Auto) Lymph # 1.1 L [place] # 1.2 H Seg Neutrophils % 85.3 H Seg Neuts % (Manual) Lymphocytes % (Manual) Seg Neutrophils # 14.1 H Seg Neutrophils # Man Lymphocytes # (Manual) PT INR APTT POC ABG pH POC ABG pCO2 POC ABG pO2 Sodium Potassium Chloride 109.1 H Carbon Dioxide 21 L BUN 76 H Creatinine 3.5 H Glucose 111 H POC Glucose Lactic Acid Calcium 8.1 L Phosphorus Magnesium Iron TIBC AST ALT Alkaline Phosphatase Lactate Dehydrogenase Total Creatine Kinase C-Reactive Protein 4.70 H Total Protein Albumin Prealbumin CA 19-9 Antigen Folate PTH Intact Urine WBC (Auto) Urine Creatinine Urine Chloride Urine Total Protein Fluid Glucose Fluid Total Protein Vancomycin Trough Miscellaneous Test Crossmatch 06/06/18 06/06/18 06/06/18 11:15 18:00 23:58 WBC RBC Hgb Hct MCHC RDW Plt Count Lymph % (Auto) [place] % (Auto) Lymph # [place] # Seg Neutrophils % Seg Neuts % (Manual) Lymphocytes % (Manual) Seg Neutrophils # Seg Neutrophils # Man Lymphocytes # (Manual) PT INR APTT POC ABG pH POC ABG pCO2 POC ABG pO2 Sodium Potassium Chloride Carbon Dioxide BUN Creatinine Glucose POC Glucose 127 H 130 H 114 H Lactic Acid Calcium Phosphorus Magnesium Iron TIBC AST ALT Alkaline Phosphatase Lactate Dehydrogenase Total Creatine Kinase C-Reactive Protein Total Protein Albumin Prealbumin CA 19-9 Antigen Folate PTH Intact Urine WBC (Auto) Urine Creatinine Urine Chloride Urine Total Protein Fluid Glucose Fluid Total Protein Vancomycin Trough Miscellaneous Test Crossmatch 06/07/18 06/07/18 06/07/18 05:45 05:45 05:54 WBC 15.5 H RBC 2.60 L Hgb 7.4 L Hct 23.1 L MCHC RDW 16.5 H Plt Count 506 H Lymph % (Auto) 5.3 L [place] % (Auto) Lymph # 0.8 L [place] # 1.0 H Seg Neutrophils % 86.6 H Seg Neuts % (Manual) Lymphocytes % (Manual) Seg Neutrophils # 13.4 H Seg Neutrophils # Man Lymphocytes # (Manual) PT INR APTT POC ABG pH POC ABG pCO2 POC ABG pO2 Sodium Potassium Chloride 108.4 H Carbon Dioxide BUN 84 H Creatinine 3.5 H Glucose 119 H POC Glucose 114 H Lactic Acid Calcium 8.1 L Phosphorus 5.10 H Magnesium Iron TIBC AST ALT Alkaline Phosphatase Lactate Dehydrogenase Total Creatine Kinase C-Reactive Protein Total Protein Albumin Prealbumin CA 19-9 Antigen Folate PTH Intact Urine WBC (Auto) Urine Creatinine Urine Chloride Urine Total Protein Fluid Glucose Fluid Total Protein Vancomycin Trough Miscellaneous Test Crossmatch 06/07/18 06/08/18 06/08/18 12:15 05:05 05:24 WBC RBC Hgb Hct MCHC RDW Plt Count Lymph % (Auto) [place] % (Auto) Lymph # [place] # Seg Neutrophils % Seg Neuts % (Manual) Lymphocytes % (Manual) Seg Neutrophils # Seg Neutrophils # Man Lymphocytes # (Manual) PT INR APTT POC ABG pH POC ABG pCO2 POC ABG pO2 Sodium 148 H Potassium Chloride 112.4 H Carbon Dioxide BUN 89 H Creatinine 3.4 H Glucose 120 H POC Glucose 148 H 115 H Lactic Acid Calcium 7.9 L Phosphorus Magnesium Iron TIBC AST ALT Alkaline Phosphatase Lactate Dehydrogenase Total Creatine Kinase C-Reactive Protein Total Protein Albumin Prealbumin CA 19-9 Antigen Folate PTH Intact Urine WBC (Auto) Urine Creatinine Urine Chloride Urine Total Protein Fluid Glucose Fluid Total Protein Vancomycin Trough Miscellaneous Test Crossmatch 06/08/18 06/08/18 06/08/18 21:36 21:43 21:43 WBC RBC 2.98 L Hgb 8.8 L Hct 26.6 L MCHC RDW 16.7 H Plt Count 463 H Lymph % (Auto) 7.9 L [place] % (Auto) Lymph # 0.8 L [place] # Seg Neutrophils % 84.8 H Seg Neuts % (Manual) Lymphocytes % (Manual) Seg Neutrophils # 8.6 H Seg Neutrophils # Man Lymphocytes # (Manual) PT INR APTT POC ABG pH POC ABG pCO2 POC ABG pO2 Sodium Potassium Chloride Carbon Dioxide BUN Creatinine Glucose POC Glucose Lactic Acid Calcium Phosphorus Magnesium Iron TIBC AST ALT Alkaline Phosphatase Lactate Dehydrogenase 297 H Total Creatine Kinase C-Reactive Protein Total Protein Albumin Prealbumin CA 19-9 Antigen 57 H Folate PTH Intact Urine WBC (Auto) Urine Creatinine Urine Chloride Urine Total Protein Fluid Glucose Fluid Total Protein Vancomycin Trough Miscellaneous Test Crossmatch 06/09/18 06/09/18 06/09/18 00:05 05:34 05:50 WBC RBC Hgb Hct MCHC RDW Plt Count Lymph % (Auto) [place] % (Auto) Lymph # [place] # Seg Neutrophils % Seg Neuts % (Manual) Lymphocytes % (Manual) Seg Neutrophils # Seg Neutrophils # Man Lymphocytes # (Manual) PT INR APTT POC ABG pH POC ABG pCO2 POC ABG pO2 Sodium 153 H Potassium Chloride 117.3 H Carbon Dioxide BUN 84 H Creatinine 3.2 H Glucose 117 H POC Glucose 140 H 146 H Lactic Acid Calcium 7.9 L Phosphorus Magnesium Iron TIBC AST ALT Alkaline Phosphatase Lactate Dehydrogenase Total Creatine Kinase C-Reactive Protein Total Protein Albumin Prealbumin CA 19-9 Antigen Folate PTH Intact Urine WBC (Auto) Urine Creatinine Urine Chloride Urine Total Protein Fluid Glucose Fluid Total Protein Vancomycin Trough Miscellaneous Test Crossmatch 06/09/18 06/09/18 06/09/18 05:50 07:37 10:34 WBC RBC 2.32 L Hgb 6.8 L Hct 20.7 L MCHC RDW 16.7 H Plt Count Lymph % (Auto) [place] % (Auto) Lymph # [place] # Seg Neutrophils % Seg Neuts % (Manual) Lymphocytes % (Manual) Seg Neutrophils # Seg Neutrophils # Man Lymphocytes # (Manual) PT INR APTT POC ABG pH POC ABG pCO2 POC ABG pO2 Sodium 149 H Potassium Chloride 114.6 H Carbon Dioxide BUN 84 H Creatinine 3.1 H Glucose 137 H POC Glucose Lactic Acid Calcium 7.7 L Phosphorus Magnesium Iron TIBC AST ALT Alkaline Phosphatase Lactate Dehydrogenase Total Creatine Kinase C-Reactive Protein Total Protein Albumin Prealbumin CA 19-9 Antigen Folate PTH Intact Urine WBC (Auto) Urine Creatinine Urine Chloride Urine Total Protein Fluid Glucose Fluid Total Protein Vancomycin Trough Miscellaneous Test Flexitest 1 H Crossmatch 06/09/18 06/09/18 06/09/18 10:41 11:56 13:24 WBC RBC 2.43 L Hgb 7.2 L Hct 21.6 L MCHC RDW 16.8 H Plt Count Lymph % (Auto) [place] % (Auto) Lymph # [place] # Seg Neutrophils % Seg Neuts % (Manual) Lymphocytes % (Manual) Seg Neutrophils # Seg Neutrophils # Man Lymphocytes # (Manual) PT INR APTT POC ABG pH POC ABG pCO2 POC ABG pO2 Sodium Potassium Chloride Carbon Dioxide BUN Creatinine Glucose POC Glucose 141 H Lactic Acid Calcium Phosphorus Magnesium Iron TIBC AST ALT Alkaline Phosphatase Lactate Dehydrogenase Total Creatine Kinase C-Reactive Protein Total Protein Albumin Prealbumin CA 19-9 Antigen Folate PTH Intact Urine WBC (Auto) Urine Creatinine Urine Chloride Urine Total Protein Fluid Glucose Fluid Total Protein Vancomycin Trough Miscellaneous Test Crossmatch See Detail 06/09/18 06/09/18 06/10/18 18:18 23:13 05:26 WBC RBC Hgb Hct MCHC RDW Plt Count Lymph % (Auto) [place] % (Auto) Lymph # [place] # Seg Neutrophils % Seg Neuts % (Manual) Lymphocytes % (Manual) Seg Neutrophils # Seg Neutrophils # Man Lymphocytes # (Manual) PT INR APTT POC ABG pH POC ABG pCO2 POC ABG pO2 Sodium 148 H Potassium Chloride 114.7 H Carbon Dioxide 21 L BUN 79 H Creatinine 3.2 H Glucose 121 H POC Glucose 156 H 163 H Lactic Acid Calcium 7.8 L Phosphorus Magnesium 1.60 L Iron TIBC AST ALT Alkaline Phosphatase Lactate Dehydrogenase Total Creatine Kinase C-Reactive Protein Total Protein Albumin Prealbumin CA 19-9 Antigen Folate PTH Intact Urine WBC (Auto) Urine Creatinine Urine Chloride Urine Total Protein Fluid Glucose Fluid Total Protein Vancomycin Trough Miscellaneous Test Crossmatch 06/10/18 06/10/18 06/10/18 05:26 05:31 17:15 WBC 11.1 H RBC 3.07 L Hgb 9.1 L Hct 27.6 L D MCHC RDW 17.4 H Plt Count Lymph % (Auto) [place] % (Auto) Lymph # [place] # Seg Neutrophils % Seg Neuts % (Manual) Lymphocytes % (Manual) Seg Neutrophils # Seg Neutrophils # Man Lymphocytes # (Manual) PT INR APTT POC ABG pH POC ABG pCO2 POC ABG pO2 Sodium Potassium Chloride Carbon Dioxide BUN Creatinine Glucose POC Glucose 128 H Lactic Acid Calcium Phosphorus Magnesium Iron TIBC AST ALT Alkaline Phosphatase Lactate Dehydrogenase Total Creatine Kinase C-Reactive Protein 3.60 H Total Protein Albumin Prealbumin CA 19-9 Antigen Folate PTH Intact Urine WBC (Auto) Urine Creatinine Urine Chloride Urine Total Protein Fluid Glucose Fluid Total Protein Vancomycin Trough Miscellaneous Test Crossmatch 06/11/18 06/11/18 06/11/18 01:13 05:41 05:41 WBC 14.6 H RBC 3.40 L Hgb 9.8 L Hct 30.7 L MCHC RDW 18.1 H Plt Count Lymph % (Auto) [place] % (Auto) Lymph # [place] # Seg Neutrophils % Seg Neuts % (Manual) Lymphocytes % (Manual) Seg Neutrophils # Seg Neutrophils # Man Lymphocytes # (Manual) PT INR APTT POC ABG pH POC ABG pCO2 POC ABG pO2 Sodium Potassium Chloride 110.8 H Carbon Dioxide 18 L BUN 77 H Creatinine 3.0 H Glucose 116 H POC Glucose 126 H Lactic Acid Calcium 7.9 L Phosphorus Magnesium Iron TIBC AST ALT Alkaline Phosphatase Lactate Dehydrogenase Total Creatine Kinase C-Reactive Protein Total Protein Albumin Prealbumin CA 19-9 Antigen Folate PTH Intact Urine WBC (Auto) Urine Creatinine Urine Chloride Urine Total Protein Fluid Glucose Fluid Total Protein Vancomycin Trough Miscellaneous Test Crossmatch 06/11/18 06/11/18 06/11/18 06:20 07:41 07:41 WBC RBC Hgb Hct MCHC RDW Plt Count Lymph % (Auto) [place] % (Auto) Lymph # [place] # Seg Neutrophils % Seg Neuts % (Manual) Lymphocytes % (Manual) Seg Neutrophils # Seg Neutrophils # Man Lymphocytes # (Manual) PT INR APTT POC ABG pH POC ABG pCO2 POC ABG pO2 Sodium Potassium Chloride Carbon Dioxide BUN Creatinine Glucose POC Glucose 136 H Lactic Acid Calcium Phosphorus Magnesium Iron TIBC AST ALT Alkaline Phosphatase Lactate Dehydrogenase Total Creatine Kinase C-Reactive Protein Total Protein Albumin Prealbumin CA 19-9 Antigen Folate PTH Intact Urine WBC (Auto) 10.0 H Urine Creatinine 41.2 H Urine Chloride 49.2 L Urine Total Protein 142 H Fluid Glucose Fluid Total Protein Vancomycin Trough Miscellaneous Test Crossmatch 06/11/18 06/12/18 06/12/18 18:35 00:34 04:12 WBC RBC 3.18 L Hgb 9.5 L Hct 28.7 L MCHC RDW 18.5 H Plt Count Lymph % (Auto) 8.1 L [place] % (Auto) Lymph # 0.9 L [place] # Seg Neutrophils % 84.6 H Seg Neuts % (Manual) Lymphocytes % (Manual) Seg Neutrophils # 9.1 H Seg Neutrophils # Man Lymphocytes # (Manual) PT INR APTT POC ABG pH POC ABG pCO2 POC ABG pO2 Sodium Potassium Chloride Carbon Dioxide BUN Creatinine Glucose POC Glucose 125 H 129 H Lactic Acid Calcium Phosphorus Magnesium Iron TIBC AST ALT Alkaline Phosphatase Lactate Dehydrogenase Total Creatine Kinase C-Reactive Protein Total Protein Albumin Prealbumin CA 19-9 Antigen Folate PTH Intact Urine WBC (Auto) Urine Creatinine Urine Chloride Urine Total Protein Fluid Glucose Fluid Total Protein Vancomycin Trough Miscellaneous Test Crossmatch 06/12/18 06/12/18 06/12/18 04:12 06:30 11:43 WBC RBC Hgb Hct MCHC RDW Plt Count Lymph % (Auto) [place] % (Auto) Lymph # [place] # Seg Neutrophils % Seg Neuts % (Manual) Lymphocytes % (Manual) Seg Neutrophils # Seg Neutrophils # Man Lymphocytes # (Manual) PT INR APTT POC ABG pH POC ABG pCO2 POC ABG pO2 Sodium Potassium Chloride 108.5 H Carbon Dioxide 21 L BUN 72 H Creatinine 3.0 H Glucose 122 H POC Glucose 129 H 126 H Lactic Acid Calcium 7.8 L Phosphorus Magnesium Iron TIBC AST 45 H ALT Alkaline Phosphatase 200 H Lactate Dehydrogenase Total Creatine Kinase 34 L C-Reactive Protein Total Protein Albumin 1.7 L Prealbumin CA 19-9 Antigen Folate PTH Intact Urine WBC (Auto) Urine Creatinine Urine Chloride Urine Total Protein Fluid Glucose Fluid Total Protein Vancomycin Trough Miscellaneous Test Crossmatch 06/12/18 06/12/18 06/13/18 16:00 23:56 03:44 WBC RBC Hgb Hct MCHC RDW Plt Count Lymph % (Auto) [place] % (Auto) Lymph # [place] # Seg Neutrophils % Seg Neuts % (Manual) Lymphocytes % (Manual) Seg Neutrophils # Seg Neutrophils # Man Lymphocytes # (Manual) PT INR APTT POC ABG pH POC ABG pCO2 POC ABG pO2 Sodium Potassium Chloride Carbon Dioxide BUN Creatinine Glucose POC Glucose 123 H 128 H 121 H Lactic Acid Calcium Phosphorus Magnesium Iron TIBC AST ALT Alkaline Phosphatase Lactate Dehydrogenase Total Creatine Kinase C-Reactive Protein Total Protein Albumin Prealbumin CA 19-9 Antigen Folate PTH Intact Urine WBC (Auto) Urine Creatinine Urine Chloride Urine Total Protein Fluid Glucose Fluid Total Protein Vancomycin Trough Miscellaneous Test Crossmatch 06/13/18 06/13/18 06/14/18 05:59 11:29 01:08 WBC RBC Hgb Hct MCHC RDW Plt Count Lymph % (Auto) [place] % (Auto) Lymph # [place] # Seg Neutrophils % Seg Neuts % (Manual) Lymphocytes % (Manual) Seg Neutrophils # Seg Neutrophils # Man Lymphocytes # (Manual) PT INR APTT POC ABG pH POC ABG pCO2 POC ABG pO2 Sodium 134 L Potassium Chloride Carbon Dioxide 20 L BUN 69 H Creatinine 2.9 H Glucose 113 H POC Glucose 124 H 128 H Lactic Acid Calcium 7.8 L Phosphorus Magnesium Iron TIBC AST ALT Alkaline Phosphatase Lactate Dehydrogenase Total Creatine Kinase C-Reactive Protein Total Protein Albumin Prealbumin CA 19-9 Antigen Folate PTH Intact Urine WBC (Auto) Urine Creatinine Urine Chloride Urine Total Protein Fluid Glucose Fluid Total Protein Vancomycin Trough Miscellaneous Test Crossmatch 06/14/18 06/14/18 06/14/18 06:42 06:42 09:50 WBC 11.3 H RBC 3.02 L Hgb 8.8 L Hct 27.3 L MCHC RDW 18.6 H Plt Count Lymph % (Auto) [place] % (Auto) Lymph # [place] # Seg Neutrophils % Seg Neuts % (Manual) Lymphocytes % (Manual) Seg Neutrophils # Seg Neutrophils # Man Lymphocytes # (Manual) PT 16.3 H INR 1.24 H APTT POC ABG pH POC ABG pCO2 POC ABG pO2 Sodium 132 L Potassium Chloride Carbon Dioxide 19 L BUN 71 H Creatinine 3.1 H Glucose POC Glucose Lactic Acid Calcium 7.8 L Phosphorus Magnesium Iron TIBC AST ALT Alkaline Phosphatase Lactate Dehydrogenase Total Creatine Kinase C-Reactive Protein Total Protein Albumin Prealbumin CA 19-9 Antigen Folate PTH Intact Urine WBC (Auto) Urine Creatinine Urine Chloride Urine Total Protein Fluid Glucose Fluid Total Protein Vancomycin Trough Miscellaneous Test Crossmatch 06/14/18 06/14/18 06/15/18 12:31 17:04 01:18 WBC RBC Hgb Hct MCHC RDW Plt Count Lymph % (Auto) [place] % (Auto) Lymph # [place] # Seg Neutrophils % Seg Neuts % (Manual) Lymphocytes % (Manual) Seg Neutrophils # Seg Neutrophils # Man Lymphocytes # (Manual) PT INR APTT POC ABG pH POC ABG pCO2 POC ABG pO2 Sodium Potassium Chloride Carbon Dioxide BUN Creatinine Glucose POC Glucose 125 H 109 H 124 H Lactic Acid Calcium Phosphorus Magnesium Iron TIBC AST ALT Alkaline Phosphatase Lactate Dehydrogenase Total Creatine Kinase C-Reactive Protein Total Protein Albumin Prealbumin CA 19-9 Antigen Folate PTH Intact Urine WBC (Auto) Urine Creatinine Urine Chloride Urine Total Protein Fluid Glucose Fluid Total Protein Vancomycin Trough Miscellaneous Test Crossmatch 06/15/18 06/15/18 06/15/18 05:27 06:34 11:42 WBC RBC Hgb Hct MCHC RDW Plt Count Lymph % (Auto) [place] % (Auto) Lymph # [place] # Seg Neutrophils % Seg Neuts % (Manual) Lymphocytes % (Manual) Seg Neutrophils # Seg Neutrophils # Man Lymphocytes # (Manual) PT INR APTT POC ABG pH POC ABG pCO2 POC ABG pO2 Sodium 134 L Potassium Chloride Carbon Dioxide 17 L BUN 77 H Creatinine 3.2 H Glucose 110 H POC Glucose 116 H 131 H Lactic Acid Calcium 8.1 L Phosphorus 6.20 H D Magnesium Iron TIBC AST ALT Alkaline Phosphatase Lactate Dehydrogenase Total Creatine Kinase C-Reactive Protein Total Protein Albumin Prealbumin CA 19-9 Antigen Folate PTH Intact Urine WBC (Auto) Urine Creatinine Urine Chloride Urine Total Protein Fluid Glucose Fluid Total Protein Vancomycin Trough Miscellaneous Test Crossmatch 06/16/18 06/16/18 06/16/18 00:57 05:10 06:07 WBC RBC Hgb Hct MCHC RDW Plt Count Lymph % (Auto) [place] % (Auto) Lymph # [place] # Seg Neutrophils % Seg Neuts % (Manual) Lymphocytes % (Manual) Seg Neutrophils # Seg Neutrophils # Man Lymphocytes # (Manual) PT INR APTT POC ABG pH POC ABG pCO2 POC ABG pO2 Sodium 132 L Potassium Chloride Carbon Dioxide 19 L BUN 83 H Creatinine 3.2 H Glucose 113 H POC Glucose 137 H 109 H Lactic Acid Calcium 7.8 L Phosphorus 6.10 H Magnesium Iron TIBC AST ALT Alkaline Phosphatase Lactate Dehydrogenase Total Creatine Kinase C-Reactive Protein Total Protein Albumin Prealbumin CA 19-9 Antigen Folate PTH Intact Urine WBC (Auto) Urine Creatinine Urine Chloride Urine Total Protein Fluid Glucose Fluid Total Protein Vancomycin Trough Miscellaneous Test Crossmatch 06/16/18 06/16/18 06/17/18 11:51 15:46 00:02 WBC RBC Hgb Hct MCHC RDW Plt Count Lymph % (Auto) [place] % (Auto) Lymph # [place] # Seg Neutrophils % Seg Neuts % (Manual) Lymphocytes % (Manual) Seg Neutrophils # Seg Neutrophils # Man Lymphocytes # (Manual) PT INR APTT POC ABG pH POC ABG pCO2 POC ABG pO2 Sodium Potassium Chloride Carbon Dioxide BUN Creatinine Glucose POC Glucose 126 H 127 H 107 H Lactic Acid Calcium Phosphorus Magnesium Iron TIBC AST ALT Alkaline Phosphatase Lactate Dehydrogenase Total Creatine Kinase C-Reactive Protein Total Protein Albumin Prealbumin CA 19-9 Antigen Folate PTH Intact Urine WBC (Auto) Urine Creatinine Urine Chloride Urine Total Protein Fluid Glucose Fluid Total Protein Vancomycin Trough Miscellaneous Test Crossmatch 06/17/18 06/17/18 06/17/18 05:52 11:46 16:58 WBC RBC Hgb Hct MCHC RDW Plt Count Lymph % (Auto) [place] % (Auto) Lymph # [place] # Seg Neutrophils % Seg Neuts % (Manual) Lymphocytes % (Manual) Seg Neutrophils # Seg Neutrophils # Man Lymphocytes # (Manual) PT INR APTT POC ABG pH POC ABG pCO2 POC ABG pO2 Sodium 133 L Potassium Chloride Carbon Dioxide 17 L BUN 87 H Creatinine 3.2 H Glucose POC Glucose 129 H 140 H Lactic Acid Calcium 8.1 L Phosphorus 6.50 H Magnesium Iron TIBC AST ALT Alkaline Phosphatase Lactate Dehydrogenase Total Creatine Kinase C-Reactive Protein Total Protein Albumin Prealbumin 0.130 L CA 19-9 Antigen Folate PTH Intact Urine WBC (Auto) Urine Creatinine Urine Chloride Urine Total Protein Fluid Glucose Fluid Total Protein Vancomycin Trough Miscellaneous Test Crossmatch 06/18/18 06/18/18 06/18/18 04:04 04:04 14:15 WBC RBC 3.00 L Hgb 8.9 L Hct 26.5 L MCHC RDW 17.8 H Plt Count 494 H Lymph % (Auto) 7.9 L [place] % (Auto) 9.3 H Lymph # 0.8 L [place] # 1.0 H Seg Neutrophils % 81.2 H Seg Neuts % (Manual) Lymphocytes % (Manual) Seg Neutrophils # 8.6 H Seg Neutrophils # Man Lymphocytes # (Manual) PT INR APTT POC ABG pH POC ABG pCO2 POC ABG pO2 Sodium 128 L Potassium Chloride Carbon Dioxide 18 L BUN 88 H Creatinine 3.1 H Glucose 129 H POC Glucose 143 H Lactic Acid Calcium 7.8 L Phosphorus 6.20 H Magnesium Iron TIBC AST ALT Alkaline Phosphatase Lactate Dehydrogenase Total Creatine Kinase C-Reactive Protein Total Protein Albumin Prealbumin CA 19-9 Antigen Folate PTH Intact Urine WBC (Auto) Urine Creatinine Urine Chloride Urine Total Protein Fluid Glucose Fluid Total Protein Vancomycin Trough Miscellaneous Test Crossmatch 06/18/18 06/19/18 06/19/18 17:54 01:45 06:20 WBC RBC Hgb Hct MCHC RDW Plt Count Lymph % (Auto) [place] % (Auto) Lymph # [place] # Seg Neutrophils % Seg Neuts % (Manual) Lymphocytes % (Manual) Seg Neutrophils # Seg Neutrophils # Man Lymphocytes # (Manual) PT INR APTT POC ABG pH POC ABG pCO2 POC ABG pO2 Sodium Potassium Chloride 93.9 L Carbon Dioxide BUN 78 H Creatinine 2.8 H Glucose POC Glucose 138 H 141 H Lactic Acid Calcium 7.1 L Phosphorus 6.40 H Magnesium Iron TIBC AST ALT Alkaline Phosphatase Lactate Dehydrogenase Total Creatine Kinase C-Reactive Protein Total Protein Albumin Prealbumin CA 19-9 Antigen Folate PTH Intact Urine WBC (Auto) Urine Creatinine Urine Chloride Urine Total Protein Fluid Glucose Fluid Total Protein Vancomycin Trough Miscellaneous Test Crossmatch 06/19/18 06/19/18 06:49 07:59 WBC RBC Hgb Hct MCHC RDW Plt Count Lymph % (Auto) [place] % (Auto) Lymph # [place] # Seg Neutrophils % Seg Neuts % (Manual) Lymphocytes % (Manual) Seg Neutrophils # Seg Neutrophils # Man Lymphocytes # (Manual) PT INR APTT POC ABG pH POC ABG pCO2 POC ABG pO2 Sodium Potassium Chloride Carbon Dioxide BUN 80 H Creatinine 2.9 H Glucose 123 H POC Glucose 130 H Lactic Acid Calcium 7.7 L Phosphorus Magnesium Iron TIBC AST ALT Alkaline Phosphatase Lactate Dehydrogenase Total Creatine Kinase C-Reactive Protein Total Protein Albumin Prealbumin CA 19-9 Antigen Folate PTH Intact Urine WBC (Auto) Urine Creatinine Urine Chloride Urine Total Protein Fluid Glucose Fluid Total Protein Vancomycin Trough Miscellaneous Test Crossmatch Allied health notes reviewed: nursing
[2018-06-19] MEDS ORDERED: TPN ADULT 2,016 ML IV SCH (20:00)
[2018-06-20] MEDS: APRESOLINE PO SCH ×3 (06:08→21:03)
[2018-06-20 06:45] LABS: Basophils # (Auto) 0.1 K/mm3 (0.0-0.1); Eosinophils % (Auto) 0.6 % (0.0-4.3); Hematocrit 24.2 % (35.5-45.6); Lymphocytes # (Auto) 1.1 K/mm3 (1.2-5.4); Lymphocytes % (Auto) 12.3 % (13.4-35.0); Mean Corpuscular HGB Conc 33 % (32-34); Mean Corpuscular Hemoglobin 29 pg (28-32); Mean Corpuscular Volume 89 fl (84-94); Monocytes % (Auto) 11.3 % (0.0-7.3); Platelet Count 512 K/mm3 (140-440); Red Blood Count 2.73 M/mm3 (3.65-5.03); Red Cell Distribution Width 17.4 % (13.2-15.2)
--- NOTE | 2018-06-20 08:12 | Progress Note ---
Assessment and Plan 1. Acute kidney injury: Initial MARYLOU in the setting of bilateral hydronephrosis secondary to pelvic mass , now s/p bilateral nephrostomy. Recurrent Acute kidney injury likely ATN. Patient was on hemodialysis due to worsening renal function and persistent hyperkalemia. Last dialyzed on 06/02/18. BUN and Creatinine level are improving. Continue IV fluids. Renal prognosis is guarded. 2. Electrolytes: Metabolic acidosis, improved. 3. Bowel obstruction: S/p ostomy. 4. Bilateral hydronephrosis: Secondary to pelvic mass. S/p bilateral nephrostomy. S/p Cysto and drainage of abscess. 5. Respiratory failure: S/p extubated. 6. Hypertension: Continue Clonidine patch. Start Labetalol. Monitor BP. 7. Sepsis: Complicated UTI and pneumonia. On Zosyn. 8. Anemia. 9. 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 Await LTAC placement. Subjective Date of service: 06/20/18 Principal diagnosis: sq cell ca Interval history: Patient was seen and examined at the bedside. Objective - Vital Signs Vital signs: Vital Signs - 12hr 06/19/18 06/19/18 06/19/18 21:19 21:20 22:00 Temperature Pulse Rate 80 85 Pulse Rate [ 85 From Monitor] Pulse Rate [ 85 Right Radial] Respiratory 22 22 Rate Blood Pressure O2 Sat by Pulse 98 100 96 Oximetry 06/20/18 06/20/18 00:12 04:58 Temperature 98.2 F 98.3 F Pulse Rate 87 Pulse Rate [ From Monitor] Pulse Rate [ Right Radial] Respiratory 18 18 Rate Blood Pressure 197/98 159/91 O2 Sat by Pulse 91 Oximetry - General Appearance General appearance: well-developed, appears stated age, other (not in distress) EENT: ATNC, PERRL, mucous membranes moist, hearing intact, vision intact Neck: supple Respiratory: Present: Clear to Ascultation Cardiology: regular, S1S2, no murmurs Gastrointestinal: normoactive bowel sounds, no tenderness, distended, other ( bilateral nephrostomy, ostomy and drain noted) Integumentary: no rash Neurologic: no focal deficit (' mv ), no asterixis ( . m) Musculoskeletal: deformities ( zvmml[VVPP /), warmth (// ) Psychiatric: cooperative - Lab 06/20/18 05:55 06/20/18 05:55 Most recent lab results Calcium 8.0 mg/dL (8.4-10.2) L 06/20/18 05:55 Phosphorus 4.50 mg/dL (2.5-4.5) D 06/20/18 05:55 Magnesium 2.00 mg/dL (1.7-2.3) 06/20/18 05:55 Urine Creatinine 41.2 mg/dL (0.1-20.0) H 06/11/18 07:41 Urine Sodium 79 mmol/L 06/11/18 07:41 Urine Total Protein 142 mg/dL (5-11.8) H 06/11/18 07:41
[2018-06-20] MEDS: HumuLIN R SUB-Q SCH ×3 (08:30→18:29)
[2018-06-20] MEDS: SODIUM BICARBONATE 150 MEQ in D5W 1,000 ML IV SCH (08:38)
[2018-06-20] MEDS: APRESOLINE IV PRN ×3 (08:39→20:58)
[2018-06-20] MEDS: FERROUS SULFATE PO SCH ×3 (08:39→21:04)
[2018-06-20] MEDS: FOLVITE PO SCH ×2 (08:41→10:17)
[2018-06-20] MEDS: PEPCID IV SCH (10:18)
[2018-06-20] MEDS: ZOSYN/NS 2.25 GM/50ML 2.25 GM/50 ML BAG IV SCH ×2 (10:18→21:01)
--- NOTE | 2018-06-20 11:48 | Progress Note ---
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 Differentiated carcinoma with squamous differentiation on pathology but unsure of exact primary Continue pain control PRN Bilateral pneumonia (possibly aspiration) Monitor respiratory status Continue Nebs PRN Continue antibiotic Bilateral moderate pleural effusion Exudative with negative cytology--CHF versus acute kidney injury/volume overload/third spacing. Sepsis Continue Zosyn Acute kidney injury (obstructive uropathy vs contrast nephropathy) was on hemodialysis temporarily. Stable renal function. Dialysis catheter removed as per nephrology Continue to monitor BMP and kidney fuction Had bilateral nephrostomy tubes placed 05/14/[address] Freeman. Acute deep venous thrombosis Anticoagulation previously on hold because of anemia, bilateral nephrostomy tubes and abdominal surgery We will restart anticoagulation -- will check with Heme Start Lovenox SC 1mg/kg BID Bowel obstruction Etiology secondary to extrinsic compression from mass. Continue TPN Moderate to severe protein calorie malnutrition Continue tube feeding Started on diet and tolerating Hypokalemia, now resolved Potassium and mag replacement as needed Anemia due to Chronic illness s/p PRBC transfusion Plan is for LTAC. However, nurse reports that patient has not been approved. Follow-up with case management - Patient Problems (1) Acute renal failure Current Visit: Yes Status: Acute Qualifiers: Acute renal failure type: unspecified Qualified Code(s): N17.9 - Acute kidney failure, unspecified (2) Bilateral pleural effusion Current Visit: Yes Status: Acute (3) Edema Current Visit: Yes Status: Acute Qualifiers: Edema type: unspecified Qualified Code(s): R60.9 - Edema, unspecified (4) Hypertensive urgency, malignant Current Visit: Yes Status: Acute (5) Intestinal obstruction Current Visit: Yes Status: Acute (6) Pelvic mass in male Current Visit: Yes Status: Acute (7) Pneumonia involving left lung Current Visit: Yes Status: Acute (8) Sepsis Current Visit: Yes Status: Acute (9) UTI (urinary tract infection) Current Visit: Yes Status: Acute History Interval history: No new issues overnight. Hospitalist Physical - Constitutional Vitals: Temp Pulse Resp BP Pulse Ox 97.8 F 85 22 175/95 94 06/20/18 08:13 06/20/18 10:00 06/20/18 10:00 06/20/18 08:39 06/20/18 08:13 General appearance: Present: no acute distress, well-nourished - EENT Eyes: Present: PERRL, EOM intact ENT: hearing intact, clear oral mucosa, dentition normal - Neck Neck: Present: supple, normal ROM - Respiratory Respiratory effort: normal Respiratory: bilateral: CTA - Cardiovascular Rhythm: regular Heart Sounds: Present: S1 & S2. Absent: gallop, rub - Extremities Extremities: no ischemia, No edema, Full ROM - Abdominal General gastrointestinal: soft, non-tender, non-distended, normal bowel sounds - Integumentary Integumentary: Present: clear, warm, dry - Neurologic Neurologic: CNII-XII intact, moves all extremities Results - Labs CBC & Chem 7: 06/20/18 05:55 06/20/18 05:55 Labs: Laboratory Last Values WBC 8.6 K/mm3 (4.5-11.0) 06/20/18 05:55 RBC 2.73 M/mm3 (3.65-5.03) L 06/20/18 05:55 Hgb 8.0 gm/dl (11.8-15.2) L 06/20/18 05:55 Hct 24.2 % (35.5-45.6) L 06/20/18 05:55 MCV 89 fl (84-94) 06/20/18 05:55 MCH 29 pg (28-32) 06/20/18 05:55 MCHC 33 % (32-34) 06/20/18 05:55 RDW 17.4 % (13.2-15.2) H 06/20/18 05:55 Plt Count 512 K/mm3 (140-440) H 06/20/18 05:55 Lymph % (Auto) 12.3 % (13.4-35.0) L 06/20/18 05:55 [place] % (Auto) 11.3 % (0.0-7.3) H 06/20/18 05:55 Eos % (Auto) 0.6 % (0.0-4.3) 06/20/18 05:55 Baso % (Auto) 1.0 % (0.0-1.8) 06/20/18 05:55 Lymph # 1.1 K/mm3 (1.2-5.4) L 06/20/18 05:55 [place] # 1.0 K/mm3 (0.0-0.8) H 06/20/18 05:55 Eos # 0.0 K/mm3 (0.0-0.4) 06/20/18 05:55 Baso # 0.1 K/mm3 (0.0-0.1) 06/20/18 05:55 Add Manual Diff Complete 05/31/18 04:50 Total Counted 100 05/31/18 04:50 Seg Neutrophils % 74.8 % (40.0-70.0) H 06/20/18 05:55 Seg Neuts % (Manual) 91.0 % (40.0-70.0) H 05/31/18 04:50 Band Neutrophils % 2.0 % 05/31/18 04:50 Lymphocytes % (Manual) 2.0 % (13.4-35.0) L 05/31/18 04:50 Reactive Lymphs % (Man) 0 % 05/31/18 04:50 Monocytes % (Manual) 2.0 % (0.0-7.3) 05/31/18 04:50 Eosinophils % (Manual) 1.0 % (0.0-4.3) 05/31/18 04:50 Basophils % (Manual) 0 % (0.0-1.8) 05/31/18 04:50 Metamyelocytes % 1.0 % 05/31/18 04:50 Myelocytes % 1.0 % 05/31/18 04:50 Promyelocytes % 0 % 05/31/18 04:50 Blast Cells % 0 % 05/31/18 04:50 Nucleated RBC % Not Reportable 05/31/18 04:50 Seg Neutrophils # 6.4 K/mm3 (1.8-7.7) 06/20/18 05:55 Seg Neutrophils # Man 17.0 K/mm3 (1.8-7.7) H 05/31/18 04:50 Band Neutrophils # 0.4 K/mm3 05/31/18 04:50 Lymphocytes # (Manual) 0.4 K/mm3 (1.2-5.4) L 05/31/18 04:50 Abs React Lymphs (Man) 0.0 K/mm3 05/31/18 04:50 Monocytes # (Manual) 0.4 K/mm3 (0.0-0.8) 05/31/18 04:50 Eosinophils # (Manual) 0.2 K/mm3 (0.0-0.4) 05/31/18 04:50 Basophils # (Manual) 0.0 K/mm3 (0.0-0.1) 05/31/18 04:50 Metamyelocytes # 0.2 K/mm3 05/31/18 04:50 Myelocytes # 0.2 K/mm3 05/31/18 04:50 Promyelocytes # 0.0 K/mm3 05/31/18 04:50 Blast Cells # 0.0 K/mm3 05/31/18 04:50 WBC Morphology Not Reportable 05/31/18 04:50 Hypersegmented Neuts Not Reportable 05/31/18 04:50 Hyposegmented Neuts Not Reportable 05/31/18 04:50 Hypogranular Neuts Not Reportable 05/31/18 04:50 Smudge Cells Not Reportable 05/31/18 04:50 Toxic Granulation Not Reportable 05/31/18 04:50 Toxic Vacuolation Not Reportable 05/31/18 04:50 Dohle Bodies Not Reportable 05/31/18 04:50 Pelger-Huet Anomaly Not Reportable 05/31/18 04:50 Mahesh Rods Not Reportable 05/31/18 04:50 Platelet Estimate Appears normal 05/31/18 04:50 Clumped Platelets Not Reportable 05/31/18 04:50 Plt Clumps, EDTA Not Reportable 05/31/18 04:50 Large Platelets Not Reportable 05/31/18 04:50 Giant Platelets Not Reportable 05/31/18 04:50 Platelet Satelliting Not Reportable 05/31/18 04:50 Plt Morphology Comment Not Reportable 05/31/18 04:50 RBC Morphology Not Reportable 05/31/18 04:50 Dimorphic RBCs Not Reportable 05/31/18 04:50 Polychromasia Not Reportable 05/31/18 04:50 Hypochromasia Few 05/31/18 04:50 Poikilocytosis Not Reportable 05/31/18 04:50 Anisocytosis 1+ 05/31/18 04:50 Microcytosis Few 05/31/18 04:50 Macrocytosis Not Reportable 05/31/18 04:50 Spherocytes Not Reportable 05/31/18 04:50 Pappenheimer Bodies Not Reportable 05/31/18 04:50 Sickle Cells Not Reportable 05/31/18 04:50 Target Cells Rare 05/31/18 04:50 Tear Drop Cells Not Reportable 05/31/18 04:50 Ovalocytes 1+ 05/31/18 04:50 Helmet Cells Not Reportable 05/31/18 04:50 Hernandez-[place] Bodies Not Reportable 05/31/18 04:50 [place] Rings Not Reportable 05/31/18 04:50 Nory Cells Not Reportable 05/31/18 04:50 Bite Cells Not Reportable 05/31/18 04:50 Crenated Cell Not Reportable 05/31/18 04:50 Elliptocytes Not Reportable 05/31/18 04:50 Acanthocytes (Spur) Not Reportable 05/31/18 04:50 Rouleaux Not Reportable 05/31/18 04:50 Hemoglobin C Crystals Not Reportable 05/31/18 04:50 Schistocytes Not Reportable 05/31/18 04:50 Malaria parasites Not Reportable 05/31/18 04:50 Mk Bodies Not Reportable 05/31/18 04:50 Hem Pathologist Commnt No 05/31/18 04:50 PT 16.3 Sec. (12.2-14.9) H 06/14/18 09:50 INR 1.24 (0.87-1.13) H 06/14/18 09:50 APTT 40.0 Sec. (24.2-36.6) H 05/23/18 09:03 POC ABG pH 7.362 (7.35-7.45) 05/31/18 09:58 POC ABG pCO2 36.4 (35-45) 05/31/18 09:58 POC ABG pO2 101 (80-105) 05/31/18 09:58 POC ABG HCO3 20.7 05/31/18 09:58 POC ABG Total CO2 22 05/31/18 09:58 POC ABG O2 Sat 98 05/31/18 09:58 POC ABG Base Excess -5 05/31/18 09:58 FiO2 40 % 05/31/18 09:58 Sodium 143 mmol/L (137-145) 06/20/18 05:55 Potassium 3.6 mmol/L (3.6-5.0) 06/20/18 05:55 Chloride 98.6 mmol/L (98-107) 06/20/18 05:55 Carbon Dioxide 32 mmol/L (22-30) H 06/20/18 05:55 Anion Gap 16 mmol/L 06/20/18 05:55 BUN 70 mg/dL (9-20) H 06/20/18 05:55 Creatinine 2.5 mg/dL (0.8-1.5) H 06/20/18 05:55 Estimated GFR 33 ml/min 06/20/18 05:55 BUN/Creatinine Ratio 28 % 06/20/18 05:55 Glucose 105 mg/dL (75-100) H 06/20/18 05:55 POC Glucose 112 (70-105) H 06/20/18 05:55 Hemoglobin A1c 5.7 % (4-6) 05/14/18 05:05 Lactic Acid 3.80 mmol/L (0.7-2.0) H* 05/26/18 11:00 Calcium 8.0 mg/dL (8.4-10.2) L 06/20/18 05:55 Phosphorus 4.50 mg/dL (2.5-4.5) D 06/20/18 05:55 Magnesium 2.00 mg/dL (1.7-2.3) 06/20/18 05:55 Iron 24 ug/dL (49-181) L 05/16/18 07:02 TIBC 160 mcg/dL (250-450) L 05/16/18 07:02 Ferritin 325.8 ng/mL (13.0-400.0) 05/16/18 07:02 Total Bilirubin 0.30 mg/dL (0.1-1.2) 06/12/18 04:12 AST 45 units/L (5-40) H 06/12/18 04:12 ALT 29 units/L (7-56) 06/12/18 04:12 Alkaline Phosphatase 200 units/L (35-129) H 06/12/18 04:12 Lactate Dehydrogenase 297 units/L (91-180) H 06/08/18 21:36 Total Creatine Kinase 34 units/L (55-170) L 06/12/18 04:12 CK-MB (CK-2) 2.3 ng/mL (0.0-4.0) 05/25/18 22:46 CK-MB (CK-2) Rel Index 1.4 (0-4) 05/25/18 22:46 C-Reactive Protein 3.60 mg/dL (0.00-1.30) H 06/10/18 17:15 Total Protein 7.3 g/dL (6.3-8.2) 06/12/18 04:12 Albumin 1.7 g/dL (3.9-5) L 06/12/18 04:12 Albumin/Globulin Ratio 0.3 % 06/12/18 04:12 Prealbumin 0.130 g/L (0.200-0.400) L 06/17/18 05:52 Triglycerides 56 mg/dL (2-149) 06/19/18 06:20 CA 19-9 Antigen 57 U/mL (<34) H 06/08/18 21:43 Prostate Specific Ag 0.96 ng/mL (0.00-4.00) 05/14/18 13:29 Free PSA See scanned result 06/08/18 21:44 % Free PSA Calc See scanned result 06/08/18 21:44 Total PSA See scanned result 06/08/18 21:44 Vitamin B12 359.2 pg/mL (211-911) 05/16/18 07:02 Folate 5.39 ng/mL (7.3-26.0) L 05/16/18 07:02 TSH 3.180 mlU/mL (0.270-4.200) 05/14/18 05:05 PTH Intact 65.37 pg/mL (15-65) H 05/14/18 05:05 Urine Color Yellow (Yellow) 06/11/18 07:41 Urine Turbidity Slightly-cloudy (Clear) 06/11/18 07:41 Urine pH 6.0 (5.0-7.0) 06/11/18 07:41 Ur Specific [place] 1.011 (1.003-1.030) 06/11/18 07:41 Urine Protein 100 mg/dl mg/dL (Negative) 06/11/18 07:41 Urine Glucose (UA) 150 mg/dL (Negative) 06/11/18 07:41 Urine Ketones Neg mg/dL (Negative) 06/11/18 07:41 Urine Blood Sm (Negative) 06/11/18 07:41 Urine Nitrite Neg (Negative) 06/11/18 07:41 Urine Bilirubin Neg (Negative) 06/11/18 07:41 Urine Urobilinogen < 2.0 mg/dL (<2.0) 06/11/18 07:41 Ur Leukocyte Esterase Sm (Negative) 06/11/18 07:41 Urine WBC (Auto) 10.0 /HPF (0.0-6.0) H 06/11/18 07:41 Urine RBC (Auto) 5.0 /HPF (0.0-6.0) 06/11/18 07:41 U Epithel Cells (Auto) 1.0 /HPF (0-13.0) 06/11/18 07:41 Urine Bacteria (Auto) 1+ /HPF (Negative) 06/11/18 07:41 Urine WBC Clumps Few /HPF 05/13/18 19:39 Urine Mucus Few /HPF 06/11/18 07:41 Ur Yeast w Hyphae Few /HPF 06/11/18 07:41 Urine Yeast (Budding) Few /HPF 06/11/18 07:41 Urine Creatinine 41.2 mg/dL (0.1-20.0) H 06/11/18 07:41 Urine Sodium 79 mmol/L 06/11/18 07:41 Urine Potassium 13.27 mmol/L 06/11/18 07:41 Urine Chloride 49.2 mmolL (110-250) L 06/11/18 07:41 Urine Total Protein 142 mg/dL (5-11.8) H 06/11/18 07:41 Fluid Type Ascitic 06/03/18 Unknown Fluid Color Yellow 06/03/18 Unknown Fluid Appearance Cloudy 06/03/18 Unknown Fluid WBC 40332 /mm3 06/03/18 Unknown Fluid RBC 9 /mm3 06/03/18 Unknown Fluid Seg Neutrophils 98.0 % 06/03/18 Unknown Fluid Lymphocytes 2.0 % 06/03/18 Unknown Fluid Reactive Lymphs 0 % 06/03/18 Unknown Fluid Monocytes 0 % 06/03/18 Unknown Fluid Eosinophils 0 % 06/03/18 Unknown Fluid Basophils 0 % 06/03/18 Unknown Fluid Glucose 10 mg/dL (40-70) L 06/03/18 Unknown Fluid Total Protein 3.7 (15.0-45.0) L 06/03/18 Unknown Fluid Albumin 0.8 g/dL 06/03/18 Unknown Fluid LDH > 28186 06/03/18 Unknown Fluid Amylase 126 06/03/18 Unknown Vancomycin Trough 25.1 ug/mL (5.0-20.0) H 05/25/18 22:46 Random Vancomycin 34.3 ug/mL (0-40.0) 05/26/18 11:01 Urine Opiates Screen Presumptive negative 06/11/18 07:41 Urine Methadone Screen Presumptive negative 06/11/18 07:41 Ur Barbiturates Screen Presumptive negative 06/11/18 07:41 Ur Phencyclidine Scrn Presumptive negative 06/11/18 07:41 Ur Amphetamines Screen Presumptive negative 06/11/18 07:41 U Benzodiazepines Scrn Presumptive negative 06/11/18 07:41 Urine Cocaine Screen Presumptive negative 06/11/18 07:41 U Marijuana (THC) Screen Presumptive negative 06/11/18 07:41 Drugs of Abuse Note Disclamer 06/11/18 07:41 ZEUS Screen Negative (Negative) 05/14/18 05:05 Proteinase 3 (PR3) Ab <1.0 AI (<1.0) 05/14/18 05:05 Myeloperoxidase Ab <1.0 AI (<1.0) 05/14/18 05:05 Complement C3 147 mg/dL (82-185) 05/14/18 05:05 Complement C4 45 mg/dL (15-53) 05/14/18 05:05 Hepatitis A IgM Ab Nonreactive (NonReactive) 05/27/18 13:41 Hep Bs Antigen Non-reactive (Negative) 05/27/18 13:41 Hep B Core IgM Ab Non-reactive (NonReactive) 05/27/18 13:41 Hepatitis C Antibody Non-reactive (NonReactive) 05/27/18 13:41 Miscellaneous Test Flexitest 1 H 06/09/18 07:37 Blood Type O POSITIVE 06/09/18 13:24 Antibody Screen Negative 06/09/18 13:24 Crossmatch See Detail 06/09/18 13:24
--- NOTE | 2018-06-20 13:39 | Progress Note ---
Assessment and Plan Acute hypoxemic respiratory failure, possibly secondary to 2. Bilateral pneumonia, possibly aspiration. Sepsis syndrome. 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 Acute deep venous thrombosis. Hypertensive urgency. Hyperkalemia, now resolved. Moderate to severe protein calorie malnutrition Hypernatremia. Hypochloremia. Anemia, normocytic. (ABLA) - anticoagulation for VTE if no plans for immediate surgical intervention - continue supplemental oxygen to keep sats > 90% - repeat thoracentesis if clinically decompensates (pleural fluid cytolgy negative) - optimize cardiac function - continue bronchodilators with pulmonary hygiene per RT - continue aspiration precautions - HD/UF for toxin and volume clearance per nephrology prescription - continue anti-infective's per ID recs (zosyn) - continue TPN for now (enteral nutrition once cleared by surgery) - Malignancy per heme-oncologist - continue mobility protocol for pressure ulcer prophylaxis - s/p surgery 05/26 (had ex-lap; matted abdominal organs, pus) - s/p bilateral nephrostomy tubes placed 05/14/[address] Freeman. - continue other care per attending / other consultants - prn paracentesis - continue other care per attending / other consultants .... discharge planning ongoing concurrently ... re-evaluate in am & prn Subjective Date of service: 06/20/18 Principal diagnosis: Acute Hypoxemic Resp Failure; Sepsis Syndrome; Acute VTE; Prostate Cancer Interval history: Patient is seen today for: Acute Hypoxemic Resp Failure; Sepsis Syndrome; Acute VTE; Prostate Cancer Seen and examined at bedside; 24hour events reviewed; nursing and respiratory care staff consulted; no adverse overnight events reported to me; resting peacefully in bed; remains on supplemental oxygen at 3L flow; still SOB; + cough with mild associated pain; on TPN; tolerating clear liquids Objective Vital Signs - 12hr 06/20/18 06/20/18 06/20/18 04:58 08:13 08:39 Temperature 98.3 F 97.8 F Pulse Rate 87 84 Pulse Rate [ Right Dorsalis Pedis] Respiratory 18 18 Rate Blood Pressure 159/91 177/106 175/95 O2 Sat by Pulse 91 94 Oximetry 06/20/18 06/20/18 10:00 12:08 Temperature 98.6 F Pulse Rate 85 88 Pulse Rate [ 85 Right Dorsalis Pedis] Respiratory 22 18 Rate Blood Pressure 174/100 O2 Sat by Pulse 96 Oximetry Constitutional: no acute distress, alert, other (chronically ill looking middle aged AAM, normocephalic and atraumatic, ) Eyes: non-icteric ENT: oropharynx moist, other (Mallampati 2) Neck: supple, no lymphadenopathy, no JVD, other (no thyromegaly) Effort: mildly labored Ascultation: Bilateral: diminished breath sounds, rales (L>R base) Percussion: Bilateral: not dull, dull (bases) Cardiovascular: regular rate and rhythm, other (No R/M) Gastrointestinal: hypoactive bowel sounds, soft, tender (mild), other (Distended ; No palpable HSM, bilateral nephrostomy tubes,Colostomy, ZAKI drain) Integumentary: other (femoral vascath) Extremities: no cyanosis, no edema, pulses normal, no ischemia or petechiae Neurologic: normal mental status, non-focal exam, pupils equal and round, other (weak) Psychiatric: mood appropriate, affect normal CBC and BMP: 06/21/18 05:50 06/22/18 07:48 ABG, PT/INR, D-dimer: ABG POC ABG pH 7.362 (7.35-7.45) 05/31/18 09:58 POC ABG pCO2 36.4 (35-45) 05/31/18 09:58 POC ABG pO2 101 (80-105) 05/31/18 09:58 POC ABG HCO3 20.7 05/31/18 09:58 POC ABG Total CO2 22 05/31/18 09:58 POC ABG O2 Sat 98 05/31/18 09:58 PT/INR, D-dimer PT 16.3 Sec. (12.2-14.9) H 06/14/18 09:50 INR 1.24 (0.87-1.13) H 06/14/18 09:50 Abnormal lab findings: Abnormal Labs 05/13/18 05/13/18 05/13/18 04:27 04:27 19:39 WBC RBC 3.13 L Hgb 9.4 L Hct 26.8 L MCHC 35 H RDW Plt Count Lymph % (Auto) Hand % (Auto) 9.6 H Lymph # Hand # Seg Neutrophils % Seg Neuts % (Manual) Lymphocytes % (Manual) Seg Neutrophils # Seg Neutrophils # Man Lymphocytes # (Manual) PT INR APTT POC ABG pH POC ABG pCO2 POC ABG pO2 Sodium 132 L Potassium 5.5 H Chloride 94.1 L Carbon Dioxide 19 L BUN 72 H Creatinine 14.4 H Glucose POC Glucose Lactic Acid Calcium Phosphorus Magnesium Iron TIBC AST ALT Alkaline Phosphatase Lactate Dehydrogenase Total Creatine Kinase C-Reactive Protein Total Protein Albumin 2.8 L Prealbumin CA 19-9 Antigen Folate PTH Intact Urine WBC (Auto) Urine Creatinine 66.0 H Urine Chloride 27.8 L Urine Total Protein 24 H Fluid Glucose Fluid Total Protein Vancomycin Trough Miscellaneous Test Crossmatch 05/13/18 05/14/18 05/14/18 20:00 05:05 05:05 WBC RBC Hgb Hct MCHC RDW Plt Count Lymph % (Auto) Hand % (Auto) Lymph # Hand # Seg Neutrophils % Seg Neuts % (Manual) Lymphocytes % (Manual) Seg Neutrophils # Seg Neutrophils # Man Lymphocytes # (Manual) PT INR APTT POC ABG pH POC ABG pCO2 POC ABG pO2 Sodium 132 L 131 L Potassium 5.2 H 5.8 H Chloride 93.0 L 95.6 L Carbon Dioxide 19 L 20 L BUN 74 H 81 H Creatinine 15.0 H 16.6 H Glucose 134 H 127 H POC Glucose Lactic Acid Calcium 8.2 L 7.9 L Phosphorus 6.30 H Magnesium Iron TIBC AST ALT Alkaline Phosphatase Lactate Dehydrogenase Total Creatine Kinase 236 H C-Reactive Protein Total Protein Albumin Prealbumin CA 19-9 Antigen Folate PTH Intact 65.37 H Urine WBC (Auto) Urine Creatinine Urine Chloride Urine Total Protein Fluid Glucose Fluid Total Protein Vancomycin Trough Miscellaneous Test Crossmatch 05/14/18 05/14/18 05/14/18 09:28 10:56 13:29 WBC RBC Hgb Hct MCHC RDW Plt Count Lymph % (Auto) Hand % (Auto) Lymph # Hand # Seg Neutrophils % Seg Neuts % (Manual) Lymphocytes % (Manual) Seg Neutrophils # Seg Neutrophils # Man Lymphocytes # (Manual) PT INR APTT 38.2 H POC ABG pH POC ABG pCO2 POC ABG pO2 Sodium Potassium Chloride Carbon Dioxide BUN Creatinine Glucose POC Glucose 127 H 126 H Lactic Acid Calcium Phosphorus Magnesium Iron TIBC AST ALT Alkaline Phosphatase Lactate Dehydrogenase Total Creatine Kinase C-Reactive Protein Total Protein Albumin Prealbumin CA 19-9 Antigen Folate PTH Intact Urine WBC (Auto) Urine Creatinine Urine Chloride Urine Total Protein Fluid Glucose Fluid Total Protein Vancomycin Trough Miscellaneous Test Crossmatch 05/15/18 05/15/18 05/16/18 08:06 08:06 07:02 WBC RBC 2.84 L 2.74 L Hgb 8.5 L 8.5 L Hct 24.2 L 23.5 L MCHC 35 H 36 H RDW Plt Count Lymph % (Auto) Hand % (Auto) 10.4 H 11.0 H Lymph # 1.1 L Hand # 0.9 H Seg Neutrophils % 72.6 H Seg Neuts % (Manual) Lymphocytes % (Manual) Seg Neutrophils # Seg Neutrophils # Man Lymphocytes # (Manual) PT INR APTT POC ABG pH POC ABG pCO2 POC ABG pO2 Sodium Potassium Chloride Carbon Dioxide 19 L BUN 66 H Creatinine 12.0 H Glucose 115 H POC Glucose Lactic Acid Calcium 8.1 L Phosphorus Magnesium Iron TIBC AST ALT Alkaline Phosphatase Lactate Dehydrogenase Total Creatine Kinase C-Reactive Protein Total Protein Albumin Prealbumin CA 19-9 Antigen Folate PTH Intact Urine WBC (Auto) Urine Creatinine Urine Chloride Urine Total Protein Fluid Glucose Fluid Total Protein Vancomycin Trough Miscellaneous Test Crossmatch 05/16/18 05/16/18 05/17/18 07:02 07:02 05:08 WBC RBC 2.78 L Hgb 8.2 L Hct 23.9 L MCHC RDW Plt Count Lymph % (Auto) Hand % (Auto) 13.9 H Lymph # Hand # 0.9 H Seg Neutrophils % Seg Neuts % (Manual) Lymphocytes % (Manual) Seg Neutrophils # Seg Neutrophils # Man Lymphocytes # (Manual) PT INR APTT POC ABG pH POC ABG pCO2 POC ABG pO2 Sodium Potassium Chloride Carbon Dioxide BUN 28 H Creatinine 2.4 H D Glucose POC Glucose Lactic Acid Calcium 8.3 L Phosphorus Magnesium 1.50 L Iron 24 L TIBC 160 L AST ALT Alkaline Phosphatase Lactate Dehydrogenase Total Creatine Kinase C-Reactive Protein Total Protein Albumin Prealbumin CA 19-9 Antigen Folate 5.39 L PTH Intact Urine WBC (Auto) Urine Creatinine Urine Chloride Urine Total Protein Fluid Glucose Fluid Total Protein Vancomycin Trough Miscellaneous Test Crossmatch 05/17/18 05/18/18 05/18/18 05:08 05:57 05:57 WBC RBC 2.79 L Hgb 8.3 L Hct 24.0 L MCHC 35 H RDW Plt Count Lymph % (Auto) Hand % (Auto) 11.8 H Lymph # Hand # 0.9 H Seg Neutrophils % Seg Neuts % (Manual) Lymphocytes % (Manual) Seg Neutrophils # Seg Neutrophils # Man Lymphocytes # (Manual) PT INR APTT POC ABG pH POC ABG pCO2 POC ABG pO2 Sodium Potassium Chloride Carbon Dioxide BUN Creatinine Glucose POC Glucose Lactic Acid Calcium 7.7 L 8.0 L Phosphorus Magnesium 1.60 L Iron TIBC AST ALT Alkaline Phosphatase Lactate Dehydrogenase Total Creatine Kinase C-Reactive Protein Total Protein Albumin Prealbumin CA 19-9 Antigen Folate PTH Intact Urine WBC (Auto) Urine Creatinine Urine Chloride Urine Total Protein Fluid Glucose Fluid Total Protein Vancomycin Trough Miscellaneous Test Crossmatch 05/19/18 05/19/18 05/20/18 05:33 05:33 05:38 WBC RBC 2.95 L Hgb 8.8 L Hct 25.8 L MCHC RDW Plt Count Lymph % (Auto) 10.1 L Hand % (Auto) Lymph # 1.1 L Hand # Seg Neutrophils % 85.2 H Seg Neuts % (Manual) Lymphocytes % (Manual) Seg Neutrophils # 9.0 H Seg Neutrophils # Man Lymphocytes # (Manual) PT INR APTT POC ABG pH POC ABG pCO2 POC ABG pO2 Sodium 135 L Potassium Chloride Carbon Dioxide BUN Creatinine Glucose 132 H POC Glucose Lactic Acid Calcium 7.8 L 8.3 L Phosphorus Magnesium 1.40 L Iron TIBC AST ALT Alkaline Phosphatase Lactate Dehydrogenase Total Creatine Kinase C-Reactive Protein Total Protein Albumin Prealbumin CA 19-9 Antigen Folate PTH Intact Urine WBC (Auto) Urine Creatinine Urine Chloride Urine Total Protein Fluid Glucose Fluid Total Protein Vancomycin Trough Miscellaneous Test Crossmatch 05/21/18 05/21/18 05/22/18 04:46 15:30 06:49 WBC 20.0 H RBC 2.70 L Hgb 7.8 L Hct 23.3 L MCHC RDW Plt Count Lymph % (Auto) Hand % (Auto) Lymph # Hand # Seg Neutrophils % Seg Neuts % (Manual) 85.0 H Lymphocytes % (Manual) 4.0 L Seg Neutrophils # Seg Neutrophils # Man 17.0 H Lymphocytes # (Manual) 0.8 L PT INR APTT POC ABG pH POC ABG pCO2 POC ABG pO2 Sodium 135 L Potassium 3.5 L Chloride Carbon Dioxide 21 L BUN 22 H Creatinine Glucose POC Glucose Lactic Acid Calcium 8.1 L Phosphorus Magnesium Iron TIBC AST ALT Alkaline Phosphatase Lactate Dehydrogenase Total Creatine Kinase C-Reactive Protein Total Protein Albumin Prealbumin CA 19-9 Antigen Folate PTH Intact Urine WBC (Auto) 28.0 H Urine Creatinine Urine Chloride Urine Total Protein Fluid Glucose Fluid Total Protein Vancomycin Trough Miscellaneous Test Crossmatch 05/22/18 05/22/18 05/23/18 06:49 11:23 09:03 WBC RBC Hgb Hct MCHC RDW Plt Count Lymph % (Auto) Hand % (Auto) Lymph # Hand # Seg Neutrophils % Seg Neuts % (Manual) Lymphocytes % (Manual) Seg Neutrophils # Seg Neutrophils # Man Lymphocytes # (Manual) PT INR APTT POC ABG pH POC ABG pCO2 POC ABG pO2 Sodium 134 L Potassium 3.5 L Chloride Carbon Dioxide 21 L BUN 35 H 36 H Creatinine 1.7 H Glucose 107 H POC Glucose Lactic Acid Calcium 7.9 L Phosphorus Magnesium 2.50 H Iron TIBC AST ALT Alkaline Phosphatase Lactate Dehydrogenase Total Creatine Kinase C-Reactive Protein Total Protein Albumin Prealbumin CA 19-9 Antigen Folate PTH Intact Urine WBC (Auto) Urine Creatinine Urine Chloride Urine Total Protein Fluid Glucose Fluid Total Protein Vancomycin Trough Miscellaneous Test Crossmatch See Detail 05/23/18 05/23/18 05/23/18 09:03 09:03 17:34 WBC 26.3 H RBC 3.57 L Hgb 10.4 L Hct 31.1 L D MCHC RDW Plt Count Lymph % (Auto) Hand % (Auto) Lymph # Hand # Seg Neutrophils % Seg Neuts % (Manual) Lymphocytes % (Manual) Seg Neutrophils # Seg Neutrophils # Man Lymphocytes # (Manual) PT 18.3 H INR 1.43 H APTT 40.0 H POC ABG pH POC ABG pCO2 POC ABG pO2 Sodium Potassium Chloride Carbon Dioxide BUN Creatinine Glucose POC Glucose 108 H Lactic Acid Calcium Phosphorus Magnesium Iron TIBC AST ALT Alkaline Phosphatase Lactate Dehydrogenase Total Creatine Kinase C-Reactive Protein Total Protein Albumin Prealbumin CA 19-9 Antigen Folate PTH Intact Urine WBC (Auto) Urine Creatinine Urine Chloride Urine Total Protein Fluid Glucose Fluid Total Protein Vancomycin Trough Miscellaneous Test Crossmatch 05/23/18 05/24/18 05/24/18 21:14 04:43 08:04 WBC RBC Hgb Hct MCHC RDW Plt Count Lymph % (Auto) Hand % (Auto) Lymph # Hand # Seg Neutrophils % Seg Neuts % (Manual) Lymphocytes % (Manual) Seg Neutrophils # Seg Neutrophils # Man Lymphocytes # (Manual) PT INR APTT POC ABG pH POC ABG pCO2 POC ABG pO2 Sodium 146 H Potassium Chloride 108.6 H Carbon Dioxide BUN 33 H Creatinine Glucose 109 H POC Glucose 110 H 106 H Lactic Acid Calcium 8.3 L Phosphorus Magnesium 2.50 H Iron TIBC AST ALT Alkaline Phosphatase Lactate Dehydrogenase Total Creatine Kinase C-Reactive Protein Total Protein Albumin Prealbumin CA 19-9 Antigen Folate PTH Intact Urine WBC (Auto) Urine Creatinine Urine Chloride Urine Total Protein Fluid Glucose Fluid Total Protein Vancomycin Trough Miscellaneous Test Crossmatch 05/25/18 05/25/18 05/25/18 05:42 05:49 19:50 WBC RBC Hgb Hct MCHC RDW Plt Count Lymph % (Auto) Hand % (Auto) Lymph # Hand # Seg Neutrophils % Seg Neuts % (Manual) Lymphocytes % (Manual) Seg Neutrophils # Seg Neutrophils # Man Lymphocytes # (Manual) PT INR APTT POC ABG pH POC ABG pCO2 POC ABG pO2 Sodium 150 H Potassium Chloride 112.5 H Carbon Dioxide BUN 34 H Creatinine Glucose 102 H POC Glucose 107 H Lactic Acid Calcium Phosphorus Magnesium Iron TIBC AST ALT Alkaline Phosphatase Lactate Dehydrogenase Total Creatine Kinase C-Reactive Protein 34.50 H Total Protein Albumin Prealbumin CA 19-9 Antigen Folate PTH Intact Urine WBC (Auto) Urine Creatinine Urine Chloride Urine Total Protein Fluid Glucose Fluid Total Protein Vancomycin Trough Miscellaneous Test Crossmatch 05/25/18 05/25/18 05/25/18 19:50 21:05 22:46 WBC RBC Hgb Hct MCHC RDW Plt Count Lymph % (Auto) Hand % (Auto) Lymph # Hand # Seg Neutrophils % Seg Neuts % (Manual) Lymphocytes % (Manual) Seg Neutrophils # Seg Neutrophils # Man Lymphocytes # (Manual) PT INR APTT POC ABG pH 7.483 H POC ABG pCO2 24.0 L POC ABG pO2 72 L Sodium Potassium Chloride Carbon Dioxide BUN Creatinine Glucose POC Glucose Lactic Acid 5.90 H* Calcium Phosphorus Magnesium Iron TIBC AST ALT Alkaline Phosphatase Lactate Dehydrogenase Total Creatine Kinase C-Reactive Protein Total Protein Albumin Prealbumin CA 19-9 Antigen Folate PTH Intact Urine WBC (Auto) Urine Creatinine Urine Chloride Urine Total Protein Fluid Glucose Fluid Total Protein Vancomycin Trough 25.1 H Miscellaneous Test Crossmatch 05/25/18 05/26/18 05/26/18 22:46 00:21 00:51 WBC RBC Hgb Hct MCHC RDW Plt Count Lymph % (Auto) Hand % (Auto) Lymph # Hand # Seg Neutrophils % Seg Neuts % (Manual) Lymphocytes % (Manual) Seg Neutrophils # Seg Neutrophils # Man Lymphocytes # (Manual) PT INR APTT POC ABG pH POC ABG pCO2 POC ABG pO2 Sodium Potassium Chloride Carbon Dioxide BUN Creatinine Glucose POC Glucose 133 H Lactic Acid 8.10 H* 6.20 H* Calcium Phosphorus Magnesium Iron TIBC AST ALT Alkaline Phosphatase Lactate Dehydrogenase Total Creatine Kinase C-Reactive Protein Total Protein Albumin Prealbumin CA 19-9 Antigen Folate PTH Intact Urine WBC (Auto) Urine Creatinine Urine Chloride Urine Total Protein Fluid Glucose Fluid Total Protein Vancomycin Trough Miscellaneous Test Crossmatch 05/26/18 05/26/18 05/26/18 01:13 02:24 02:24 WBC 18.7 H RBC Hgb 11.6 L Hct MCHC RDW Plt Count Lymph % (Auto) Hand % (Auto) Lymph # Hand # Seg Neutrophils % Seg Neuts % (Manual) Lymphocytes % (Manual) Seg Neutrophils # Seg Neutrophils # Man Lymphocytes # (Manual) PT INR APTT POC ABG pH POC ABG pCO2 POC ABG pO2 Sodium 147 H Potassium 6.2 H* D Chloride 111.9 H Carbon Dioxide 19 L BUN 80 H Creatinine 5.1 H D Glucose 112 H POC Glucose Lactic Acid 5.20 H* Calcium 6.7 L D Phosphorus Magnesium Iron TIBC AST ALT Alkaline Phosphatase Lactate Dehydrogenase Total Creatine Kinase C-Reactive Protein Total Protein Albumin Prealbumin CA 19-9 Antigen Folate PTH Intact Urine WBC (Auto) Urine Creatinine Urine Chloride Urine Total Protein Fluid Glucose Fluid Total Protein Vancomycin Trough Miscellaneous Test Crossmatch 05/26/18 05/26/18 05/26/18 04:20 04:20 05:39 WBC RBC Hgb Hct MCHC RDW Plt Count Lymph % (Auto) Hand % (Auto) Lymph # Hand # Seg Neutrophils % Seg Neuts % (Manual) Lymphocytes % (Manual) Seg Neutrophils # Seg Neutrophils # Man Lymphocytes # (Manual) PT INR APTT POC ABG pH POC ABG pCO2 POC ABG pO2 Sodium 150 H Potassium Chloride 110.0 H Carbon Dioxide 19 L BUN 66 H Creatinine Glucose 166 H POC Glucose 187 H Lactic Acid 5.10 H* Calcium 6.9 L Phosphorus 6.70 H D Magnesium Iron TIBC AST ALT Alkaline Phosphatase Lactate Dehydrogenase Total Creatine Kinase C-Reactive Protein Total Protein Albumin Prealbumin CA 19-9 Antigen Folate PTH Intact Urine WBC (Auto) Urine Creatinine Urine Chloride Urine Total Protein Fluid Glucose Fluid Total Protein Vancomycin Trough Miscellaneous Test Crossmatch 05/26/18 05/26/18 05/26/18 06:02 07:29 11:00 WBC RBC Hgb Hct MCHC RDW Plt Count Lymph % (Auto) Hand % (Auto) Lymph # Hand # Seg Neutrophils % Seg Neuts % (Manual) Lymphocytes % (Manual) Seg Neutrophils # Seg Neutrophils # Man Lymphocytes # (Manual) PT INR APTT POC ABG pH POC ABG pCO2 28.8 L POC ABG pO2 Sodium Potassium Chloride Carbon Dioxide BUN Creatinine Glucose POC Glucose Lactic Acid 4.80 H* 3.80 H* Calcium Phosphorus Magnesium Iron TIBC AST ALT Alkaline Phosphatase Lactate Dehydrogenase Total Creatine Kinase C-Reactive Protein Total Protein Albumin Prealbumin CA 19-9 Antigen Folate PTH Intact Urine WBC (Auto) Urine Creatinine Urine Chloride Urine Total Protein Fluid Glucose Fluid Total Protein Vancomycin Trough Miscellaneous Test Crossmatch 05/26/18 05/26/18 05/26/18 11:01 12:28 18:00 WBC RBC Hgb Hct MCHC RDW Plt Count Lymph % (Auto) Hand % (Auto) Lymph # Hand # Seg Neutrophils % Seg Neuts % (Manual) Lymphocytes % (Manual) Seg Neutrophils # Seg Neutrophils # Man Lymphocytes # (Manual) PT INR APTT POC ABG pH POC ABG pCO2 POC ABG pO2 Sodium 150 H 151 H Potassium 5.3 H D 6.1 H* Chloride 110.3 H 117.0 H Carbon Dioxide 21 L 20 L BUN 75 H 77 H Creatinine 4.3 H D 4.6 H Glucose 161 H POC Glucose 114 H Lactic Acid Calcium 7.5 L 6.7 L Phosphorus Magnesium Iron TIBC AST 1041 H ALT 406 H Alkaline Phosphatase 281 H Lactate Dehydrogenase Total Creatine Kinase C-Reactive Protein Total Protein 4.4 L Albumin 1.3 L Prealbumin CA 19-9 Antigen Folate PTH Intact Urine WBC (Auto) Urine Creatinine Urine Chloride Urine Total Protein Fluid Glucose Fluid Total Protein Vancomycin Trough Miscellaneous Test Crossmatch 05/26/18 05/26/18 05/27/18 18:02 19:17 01:01 WBC 21.7 H RBC 2.70 L Hgb 7.8 L D Hct 24.6 L D MCHC RDW 15.3 H Plt Count Lymph % (Auto) Hand % (Auto) Lymph # Hand # Seg Neutrophils % Seg Neuts % (Manual) 94.0 H Lymphocytes % (Manual) 3.0 L Seg Neutrophils # Seg Neutrophils # Man 20.4 H Lymphocytes # (Manual) 0.7 L PT INR APTT POC ABG pH 7.159 L 7.205 L POC ABG pCO2 54.5 H 53.0 H POC ABG pO2 252 H Sodium Potassium Chloride Carbon Dioxide BUN Creatinine Glucose POC Glucose Lactic Acid Calcium Phosphorus Magnesium Iron TIBC AST ALT Alkaline Phosphatase Lactate Dehydrogenase Total Creatine Kinase C-Reactive Protein Total Protein Albumin Prealbumin CA 19-9 Antigen Folate PTH Intact Urine WBC (Auto) Urine Creatinine Urine Chloride Urine Total Protein Fluid Glucose Fluid Total Protein Vancomycin Trough Miscellaneous Test Crossmatch 05/27/18 05/27/18 05/27/18 05:15 05:15 06:11 WBC 24.9 H RBC 2.86 L Hgb 8.1 L Hct 25.9 L MCHC RDW 15.5 H Plt Count Lymph % (Auto) Hand % (Auto) Lymph # Hand # Seg Neutrophils % Seg Neuts % (Manual) Lymphocytes % (Manual) Seg Neutrophils # Seg Neutrophils # Man Lymphocytes # (Manual) PT INR APTT POC ABG pH 7.265 L POC ABG pCO2 46.2 H POC ABG pO2 111 H Sodium 149 H Potassium 6.9 H* Chloride 113.5 H Carbon Dioxide BUN 89 H Creatinine 5.2 H Glucose 118 H POC Glucose Lactic Acid Calcium 7.0 L Phosphorus 9.70 H D Magnesium Iron TIBC AST 876 H ALT 408 H Alkaline Phosphatase Lactate Dehydrogenase Total Creatine Kinase C-Reactive Protein Total Protein 5.2 L Albumin 1.5 L Prealbumin CA 19-9 Antigen Folate PTH Intact Urine WBC (Auto) Urine Creatinine Urine Chloride Urine Total Protein Fluid Glucose Fluid Total Protein Vancomycin Trough Miscellaneous Test Crossmatch 05/27/18 05/27/18 05/27/18 08:48 10:22 10:22 WBC RBC Hgb Hct MCHC RDW Plt Count Lymph % (Auto) Hand % (Auto) Lymph # Hand # Seg Neutrophils % Seg Neuts % (Manual) Lymphocytes % (Manual) Seg Neutrophils # Seg Neutrophils # Man Lymphocytes # (Manual) PT INR APTT POC ABG pH POC ABG pCO2 POC ABG pO2 Sodium 146 H Potassium 6.1 H* Chloride 108.2 H Carbon Dioxide 21 L BUN 88 H Creatinine 5.6 H Glucose 163 H POC Glucose 164 H Lactic Acid Calcium 6.7 L Phosphorus Magnesium Iron TIBC AST ALT Alkaline Phosphatase Lactate Dehydrogenase Total Creatine Kinase C-Reactive Protein 40.70 H Total Protein Albumin Prealbumin CA 19-9 Antigen Folate PTH Intact Urine WBC (Auto) Urine Creatinine Urine Chloride Urine Total Protein Fluid Glucose Fluid Total Protein Vancomycin Trough Miscellaneous Test Crossmatch 05/27/18 05/27/18 05/27/18 13:02 17:39 23:27 WBC RBC Hgb Hct MCHC RDW Plt Count Lymph % (Auto) Hand % (Auto) Lymph # Hand # Seg Neutrophils % Seg Neuts % (Manual) Lymphocytes % (Manual) Seg Neutrophils # Seg Neutrophils # Man Lymphocytes # (Manual) PT INR APTT POC ABG pH POC ABG pCO2 POC ABG pO2 Sodium Potassium Chloride Carbon Dioxide BUN Creatinine Glucose POC Glucose 59 L 132 H Lactic Acid Calcium Phosphorus Magnesium Iron TIBC AST ALT Alkaline Phosphatase Lactate Dehydrogenase Total Creatine Kinase C-Reactive Protein Total Protein Albumin Prealbumin CA 19-9 Antigen Folate PTH Intact Urine WBC (Auto) Urine Creatinine Urine Chloride Urine Total Protein Fluid Glucose Fluid Total Protein Vancomycin Trough Miscellaneous Test Flexitest 1 H Crossmatch 05/27/18 05/28/18 05/28/18 Unknown 04:32 05:00 WBC RBC Hgb Hct MCHC RDW Plt Count Lymph % (Auto) Hand % (Auto) Lymph # Hand # Seg Neutrophils % Seg Neuts % (Manual) Lymphocytes % (Manual) Seg Neutrophils # Seg Neutrophils # Man Lymphocytes # (Manual) PT INR APTT POC ABG pH POC ABG pCO2 POC ABG pO2 134 H Sodium Potassium Chloride Carbon Dioxide BUN 69 H Creatinine 4.4 H Glucose 118 H POC Glucose Lactic Acid Calcium 8.0 L D Phosphorus 6.80 H D Magnesium Iron TIBC AST ALT Alkaline Phosphatase Lactate Dehydrogenase Total Creatine Kinase C-Reactive Protein Total Protein Albumin Prealbumin CA 19-9 Antigen Folate PTH Intact Urine WBC (Auto) 120.0 H Urine Creatinine Urine Chloride Urine Total Protein Fluid Glucose Fluid Total Protein Vancomycin Trough Miscellaneous Test Crossmatch 05/28/18 05/28/18 05/28/18 05:00 05:27 13:04 WBC 26.5 H RBC 2.69 L Hgb 7.7 L Hct 23.6 L MCHC RDW Plt Count Lymph % (Auto) Hand % (Auto) Lymph # Hand # Seg Neutrophils % Seg Neuts % (Manual) 96.0 H Lymphocytes % (Manual) 0 L Seg Neutrophils # Seg Neutrophils # Man 25.4 H Lymphocytes # (Manual) 0.0 L PT INR APTT POC ABG pH POC ABG pCO2 POC ABG pO2 Sodium Potassium Chloride Carbon Dioxide BUN Creatinine Glucose POC Glucose 128 H 155 H Lactic Acid Calcium Phosphorus Magnesium Iron TIBC AST ALT Alkaline Phosphatase Lactate Dehydrogenase Total Creatine Kinase C-Reactive Protein Total Protein Albumin Prealbumin CA 19-9 Antigen Folate PTH Intact Urine WBC (Auto) Urine Creatinine Urine Chloride Urine Total Protein Fluid Glucose Fluid Total Protein Vancomycin Trough Miscellaneous Test Crossmatch 05/28/18 05/29/18 05/29/18 17:56 03:35 04:00 WBC RBC Hgb Hct MCHC RDW Plt Count Lymph % (Auto) Hand % (Auto) Lymph # Hand # Seg Neutrophils % Seg Neuts % (Manual) Lymphocytes % (Manual) Seg Neutrophils # Seg Neutrophils # Man Lymphocytes # (Manual) PT INR APTT POC ABG pH 7.471 H POC ABG pCO2 POC ABG pO2 78 L Sodium Potassium Chloride Carbon Dioxide BUN 50 H Creatinine 3.9 H Glucose POC Glucose 110 H Lactic Acid Calcium 7.7 L Phosphorus Magnesium 1.50 L Iron TIBC AST 218 H ALT 204 H Alkaline Phosphatase Lactate Dehydrogenase Total Creatine Kinase C-Reactive Protein Total Protein 5.4 L Albumin 1.6 L Prealbumin CA 19-9 Antigen Folate PTH Intact Urine WBC (Auto) Urine Creatinine Urine Chloride Urine Total Protein Fluid Glucose Fluid Total Protein Vancomycin Trough Miscellaneous Test Crossmatch 05/29/18 05/29/18 05/30/18 11:51 23:56 04:54 WBC RBC Hgb Hct MCHC RDW Plt Count Lymph % (Auto) Hand % (Auto) Lymph # Hand # Seg Neutrophils % Seg Neuts % (Manual) Lymphocytes % (Manual) Seg Neutrophils # Seg Neutrophils # Man Lymphocytes # (Manual) PT INR APTT POC ABG pH POC ABG pCO2 POC ABG pO2 Sodium Potassium Chloride Carbon Dioxide BUN Creatinine Glucose POC Glucose 131 H 119 H 115 H Lactic Acid Calcium Phosphorus Magnesium Iron TIBC AST ALT Alkaline Phosphatase Lactate Dehydrogenase Total Creatine Kinase C-Reactive Protein Total Protein Albumin Prealbumin CA 19-9 Antigen Folate PTH Intact Urine WBC (Auto) Urine Creatinine Urine Chloride Urine Total Protein Fluid Glucose Fluid Total Protein Vancomycin Trough Miscellaneous Test Crossmatch 05/30/18 05/30/18 05/30/18 05:07 05:15 05:15 WBC 16.2 H RBC 2.53 L Hgb 7.4 L Hct 21.9 L MCHC RDW Plt Count Lymph % (Auto) Hand % (Auto) Lymph # Hand # Seg Neutrophils % Seg Neuts % (Manual) Lymphocytes % (Manual) Seg Neutrophils # Seg Neutrophils # Man Lymphocytes # (Manual) PT INR APTT POC ABG pH POC ABG pCO2 34.5 L POC ABG pO2 133 H Sodium 135 L Potassium Chloride 97.5 L Carbon Dioxide BUN 69 H Creatinine 5.4 H Glucose 105 H POC Glucose Lactic Acid Calcium 7.5 L Phosphorus 5.30 H D Magnesium Iron TIBC AST ALT Alkaline Phosphatase Lactate Dehydrogenase Total Creatine Kinase C-Reactive Protein Total Protein Albumin Prealbumin CA 19-9 Antigen Folate PTH Intact Urine WBC (Auto) Urine Creatinine Urine Chloride Urine Total Protein Fluid Glucose Fluid Total Protein Vancomycin Trough Miscellaneous Test Crossmatch 05/30/18 05/30/18 05/31/18 12:13 17:10 04:50 WBC 18.7 H RBC 2.86 L Hgb 8.2 L Hct 24.8 L MCHC RDW Plt Count Lymph % (Auto) Hand % (Auto) Lymph # Hand # Seg Neutrophils % Seg Neuts % (Manual) 91.0 H Lymphocytes % (Manual) 2.0 L Seg Neutrophils # Seg Neutrophils # Man 17.0 H Lymphocytes # (Manual) 0.4 L PT INR APTT POC ABG pH POC ABG pCO2 POC ABG pO2 Sodium Potassium Chloride Carbon Dioxide BUN Creatinine Glucose POC Glucose 132 H 122 H Lactic Acid Calcium Phosphorus Magnesium Iron TIBC AST ALT Alkaline Phosphatase Lactate Dehydrogenase Total Creatine Kinase C-Reactive Protein Total Protein Albumin Prealbumin CA 19-9 Antigen Folate PTH Intact Urine WBC (Auto) Urine Creatinine Urine Chloride Urine Total Protein Fluid Glucose Fluid Total Protein Vancomycin Trough Miscellaneous Test Crossmatch 05/31/18 05/31/18 05/31/18 04:50 05:45 11:37 WBC RBC Hgb Hct MCHC RDW Plt Count Lymph % (Auto) Hand % (Auto) Lymph # Hand # Seg Neutrophils % Seg Neuts % (Manual) Lymphocytes % (Manual) Seg Neutrophils # Seg Neutrophils # Man Lymphocytes # (Manual) PT INR APTT POC ABG pH POC ABG pCO2 POC ABG pO2 Sodium 132 L Potassium Chloride 92.4 L Carbon Dioxide BUN 77 H Creatinine 5.9 H Glucose POC Glucose 111 H 136 H Lactic Acid Calcium 7.3 L Phosphorus 6.40 H D Magnesium Iron TIBC AST ALT Alkaline Phosphatase Lactate Dehydrogenase Total Creatine Kinase C-Reactive Protein Total Protein Albumin Prealbumin CA 19-9 Antigen Folate PTH Intact Urine WBC (Auto) Urine Creatinine Urine Chloride Urine Total Protein Fluid Glucose Fluid Total Protein Vancomycin Trough Miscellaneous Test Crossmatch 05/31/18 06/01/18 06/01/18 17:52 00:09 04:00 WBC RBC Hgb Hct MCHC RDW Plt Count Lymph % (Auto) Hand % (Auto) Lymph # Hand # Seg Neutrophils % Seg Neuts % (Manual) Lymphocytes % (Manual) Seg Neutrophils # Seg Neutrophils # Man Lymphocytes # (Manual) PT INR APTT POC ABG pH POC ABG pCO2 POC ABG pO2 Sodium Potassium Chloride 97.5 L Carbon Dioxide BUN 49 H Creatinine 4.2 H Glucose 104 H POC Glucose 115 H 114 H Lactic Acid Calcium 7.3 L Phosphorus 4.70 H D Magnesium Iron TIBC AST ALT Alkaline Phosphatase Lactate Dehydrogenase Total Creatine Kinase C-Reactive Protein Total Protein Albumin Prealbumin CA 19-9 Antigen Folate PTH Intact Urine WBC (Auto) Urine Creatinine Urine Chloride Urine Total Protein Fluid Glucose Fluid Total Protein Vancomycin Trough Miscellaneous Test Crossmatch 06/01/18 06/01/18 06/02/18 11:10 17:56 00:15 WBC RBC Hgb Hct MCHC RDW Plt Count Lymph % (Auto) Hand % (Auto) Lymph # Hand # Seg Neutrophils % Seg Neuts % (Manual) Lymphocytes % (Manual) Seg Neutrophils # Seg Neutrophils # Man Lymphocytes # (Manual) PT INR APTT POC ABG pH POC ABG pCO2 POC ABG pO2 Sodium Potassium Chloride Carbon Dioxide BUN Creatinine Glucose POC Glucose 123 H 126 H 135 H Lactic Acid Calcium Phosphorus Magnesium Iron TIBC AST ALT Alkaline Phosphatase Lactate Dehydrogenase Total Creatine Kinase C-Reactive Protein Total Protein Albumin Prealbumin CA 19-9 Antigen Folate PTH Intact Urine WBC (Auto) Urine Creatinine Urine Chloride Urine Total Protein Fluid Glucose Fluid Total Protein Vancomycin Trough Miscellaneous Test Crossmatch 06/02/18 06/02/18 06/02/18 05:23 12:42 13:05 WBC RBC Hgb Hct MCHC RDW Plt Count Lymph % (Auto) Hand % (Auto) Lymph # Hand # Seg Neutrophils % Seg Neuts % (Manual) Lymphocytes % (Manual) Seg Neutrophils # Seg Neutrophils # Man Lymphocytes # (Manual) PT 17.1 H INR 1.34 H APTT POC ABG pH POC ABG pCO2 POC ABG pO2 Sodium Potassium Chloride Carbon Dioxide BUN Creatinine Glucose POC Glucose 135 H 142 H Lactic Acid Calcium Phosphorus Magnesium Iron TIBC AST ALT Alkaline Phosphatase Lactate Dehydrogenase Total Creatine Kinase C-Reactive Protein Total Protein Albumin Prealbumin CA 19-9 Antigen Folate PTH Intact Urine WBC (Auto) Urine Creatinine Urine Chloride Urine Total Protein Fluid Glucose Fluid Total Protein Vancomycin Trough Miscellaneous Test Crossmatch 06/02/18 06/02/18 06/03/18 Unknown Unknown 00:54 WBC 20.8 H RBC 2.67 L Hgb 7.7 L Hct 23.0 L MCHC RDW Plt Count 500 H Lymph % (Auto) Hand % (Auto) Lymph # Hand # Seg Neutrophils % Seg Neuts % (Manual) Lymphocytes % (Manual) Seg Neutrophils # Seg Neutrophils # Man Lymphocytes # (Manual) PT INR APTT POC ABG pH POC ABG pCO2 POC ABG pO2 Sodium 136 L Potassium 3.5 L Chloride 96.9 L Carbon Dioxide BUN 62 H Creatinine 4.9 H Glucose 133 H POC Glucose 125 H Lactic Acid Calcium 7.2 L Phosphorus 5.00 H Magnesium Iron TIBC AST 46 H ALT 66 H Alkaline Phosphatase Lactate Dehydrogenase Total Creatine Kinase C-Reactive Protein Total Protein 5.7 L Albumin 1.5 L Prealbumin CA 19-9 Antigen Folate PTH Intact Urine WBC (Auto) Urine Creatinine Urine Chloride Urine Total Protein Fluid Glucose Fluid Total Protein Vancomycin Trough Miscellaneous Test Crossmatch 06/03/18 06/03/18 06/03/18 03:31 09:18 09:18 WBC RBC Hgb Hct MCHC RDW Plt Count Lymph % (Auto) Hand % (Auto) Lymph # Hand # Seg Neutrophils % Seg Neuts % (Manual) Lymphocytes % (Manual) Seg Neutrophils # Seg Neutrophils # Man Lymphocytes # (Manual) PT 17.1 H INR 1.34 H APTT POC ABG pH POC ABG pCO2 POC ABG pO2 Sodium 136 L Potassium Chloride Carbon Dioxide BUN 41 H Creatinine 3.4 H Glucose 129 H POC Glucose Lactic Acid Calcium 7.4 L Phosphorus Magnesium Iron TIBC AST ALT Alkaline Phosphatase Lactate Dehydrogenase Total Creatine Kinase C-Reactive Protein 11.10 H Total Protein Albumin Prealbumin CA 19-9 Antigen Folate PTH Intact Urine WBC (Auto) Urine Creatinine Urine Chloride Urine Total Protein Fluid Glucose Fluid Total Protein Vancomycin Trough Miscellaneous Test Crossmatch 06/03/18 06/03/18 06/03/18 16:07 21:18 Unknown WBC RBC Hgb Hct MCHC RDW Plt Count Lymph % (Auto) Hand % (Auto) Lymph # Hand # Seg Neutrophils % Seg Neuts % (Manual) Lymphocytes % (Manual) Seg Neutrophils # Seg Neutrophils # Man Lymphocytes # (Manual) PT INR APTT POC ABG pH POC ABG pCO2 POC ABG pO2 Sodium Potassium Chloride Carbon Dioxide BUN Creatinine Glucose POC Glucose 144 H 128 H Lactic Acid Calcium Phosphorus Magnesium Iron TIBC AST ALT Alkaline Phosphatase Lactate Dehydrogenase Total Creatine Kinase C-Reactive Protein Total Protein Albumin Prealbumin CA 19-9 Antigen Folate PTH Intact Urine WBC (Auto) Urine Creatinine Urine Chloride Urine Total Protein Fluid Glucose 10 L Fluid Total Protein 3.7 L Vancomycin Trough Miscellaneous Test Crossmatch 06/04/18 06/04/18 06/04/18 04:31 06:14 11:38 WBC RBC Hgb Hct MCHC RDW Plt Count Lymph % (Auto) Hand % (Auto) Lymph # Hand # Seg Neutrophils % Seg Neuts % (Manual) Lymphocytes % (Manual) Seg Neutrophils # Seg Neutrophils # Man Lymphocytes # (Manual) PT INR APTT POC ABG pH POC ABG pCO2 POC ABG pO2 Sodium Potassium Chloride Carbon Dioxide BUN 55 H Creatinine 3.7 H Glucose 151 H POC Glucose 145 H 129 H Lactic Acid Calcium 7.8 L Phosphorus 4.60 H Magnesium Iron TIBC AST ALT Alkaline Phosphatase Lactate Dehydrogenase Total Creatine Kinase C-Reactive Protein Total Protein Albumin Prealbumin CA 19-9 Antigen Folate PTH Intact Urine WBC (Auto) Urine Creatinine Urine Chloride Urine Total Protein Fluid Glucose Fluid Total Protein Vancomycin Trough Miscellaneous Test Crossmatch 06/04/18 06/04/18 06/04/18 17:09 20:00 21:29 WBC RBC Hgb 8.8 L Hct 27.3 L MCHC RDW Plt Count Lymph % (Auto) Hand % (Auto) Lymph # Hand # Seg Neutrophils % Seg Neuts % (Manual) Lymphocytes % (Manual) Seg Neutrophils # Seg Neutrophils # Man Lymphocytes # (Manual) PT INR APTT POC ABG pH POC ABG pCO2 POC ABG pO2 Sodium Potassium Chloride Carbon Dioxide BUN Creatinine Glucose POC Glucose 142 H 130 H Lactic Acid Calcium Phosphorus Magnesium Iron TIBC AST ALT Alkaline Phosphatase Lactate Dehydrogenase Total Creatine Kinase C-Reactive Protein Total Protein Albumin Prealbumin CA 19-9 Antigen Folate PTH Intact Urine WBC (Auto) Urine Creatinine Urine Chloride Urine Total Protein Fluid Glucose Fluid Total Protein Vancomycin Trough Miscellaneous Test Crossmatch 06/05/18 06/05/18 06/05/18 06:30 07:00 07:00 WBC 19.3 H RBC 2.94 L Hgb 8.3 L Hct 25.6 L MCHC RDW 15.7 H Plt Count 568 H Lymph % (Auto) 4.7 L Hand % (Auto) Lymph # 0.9 L Hand # 1.1 H Seg Neutrophils % 88.9 H Seg Neuts % (Manual) Lymphocytes % (Manual) Seg Neutrophils # 17.2 H Seg Neutrophils # Man Lymphocytes # (Manual) PT INR APTT POC ABG pH POC ABG pCO2 POC ABG pO2 Sodium Potassium 3.4 L D Chloride Carbon Dioxide BUN 67 H Creatinine 3.6 H Glucose 145 H POC Glucose 153 H Lactic Acid Calcium 7.9 L Phosphorus 4.60 H Magnesium Iron TIBC AST ALT Alkaline Phosphatase Lactate Dehydrogenase Total Creatine Kinase C-Reactive Protein Total Protein Albumin Prealbumin CA 19-9 Antigen Folate PTH Intact Urine WBC (Auto) Urine Creatinine Urine Chloride Urine Total Protein Fluid Glucose Fluid Total Protein Vancomycin Trough Miscellaneous Test Crossmatch 06/05/18 06/05/18 06/06/18 12:10 16:01 06:39 WBC RBC Hgb Hct MCHC RDW Plt Count Lymph % (Auto) Hand % (Auto) Lymph # Hand # Seg Neutrophils % Seg Neuts % (Manual) Lymphocytes % (Manual) Seg Neutrophils # Seg Neutrophils # Man Lymphocytes # (Manual) PT INR APTT POC ABG pH POC ABG pCO2 POC ABG pO2 Sodium Potassium Chloride Carbon Dioxide BUN Creatinine Glucose POC Glucose 150 H 129 H 131 H Lactic Acid Calcium Phosphorus Magnesium Iron TIBC AST ALT Alkaline Phosphatase Lactate Dehydrogenase Total Creatine Kinase C-Reactive Protein Total Protein Albumin Prealbumin CA 19-9 Antigen Folate PTH Intact Urine WBC (Auto) Urine Creatinine Urine Chloride Urine Total Protein Fluid Glucose Fluid Total Protein Vancomycin Trough Miscellaneous Test Crossmatch 06/06/18 06/06/18 06/06/18 07:14 07:14 07:14 WBC 16.5 H RBC 2.84 L Hgb 8.1 L Hct 25.2 L MCHC RDW 16.4 H Plt Count 526 H Lymph % (Auto) 6.5 L Hand % (Auto) Lymph # 1.1 L Hand # 1.2 H Seg Neutrophils % 85.3 H Seg Neuts % (Manual) Lymphocytes % (Manual) Seg Neutrophils # 14.1 H Seg Neutrophils # Man Lymphocytes # (Manual) PT INR APTT POC ABG pH POC ABG pCO2 POC ABG pO2 Sodium Potassium Chloride 109.1 H Carbon Dioxide 21 L BUN 76 H Creatinine 3.5 H Glucose 111 H POC Glucose Lactic Acid Calcium 8.1 L Phosphorus Magnesium Iron TIBC AST ALT Alkaline Phosphatase Lactate Dehydrogenase Total Creatine Kinase C-Reactive Protein 4.70 H Total Protein Albumin Prealbumin CA 19-9 Antigen Folate PTH Intact Urine WBC (Auto) Urine Creatinine Urine Chloride Urine Total Protein Fluid Glucose Fluid Total Protein Vancomycin Trough Miscellaneous Test Crossmatch 06/06/18 06/06/18 06/06/18 11:15 18:00 23:58 WBC RBC Hgb Hct MCHC RDW Plt Count Lymph % (Auto) Hand % (Auto) Lymph # Hand # Seg Neutrophils % Seg Neuts % (Manual) Lymphocytes % (Manual) Seg Neutrophils # Seg Neutrophils # Man Lymphocytes # (Manual) PT INR APTT POC ABG pH POC ABG pCO2 POC ABG pO2 Sodium Potassium Chloride Carbon Dioxide BUN Creatinine Glucose POC Glucose 127 H 130 H 114 H Lactic Acid Calcium Phosphorus Magnesium Iron TIBC AST ALT Alkaline Phosphatase Lactate Dehydrogenase Total Creatine Kinase C-Reactive Protein Total Protein Albumin Prealbumin CA 19-9 Antigen Folate PTH Intact Urine WBC (Auto) Urine Creatinine Urine Chloride Urine Total Protein Fluid Glucose Fluid Total Protein Vancomycin Trough Miscellaneous Test Crossmatch 06/07/18 06/07/18 06/07/18 05:45 05:45 05:54 WBC 15.5 H RBC 2.60 L Hgb 7.4 L Hct 23.1 L MCHC RDW 16.5 H Plt Count 506 H Lymph % (Auto) 5.3 L Hand % (Auto) Lymph # 0.8 L Hand # 1.0 H Seg Neutrophils % 86.6 H Seg Neuts % (Manual) Lymphocytes % (Manual) Seg Neutrophils # 13.4 H Seg Neutrophils # Man Lymphocytes # (Manual) PT INR APTT POC ABG pH POC ABG pCO2 POC ABG pO2 Sodium Potassium Chloride 108.4 H Carbon Dioxide BUN 84 H Creatinine 3.5 H Glucose 119 H POC Glucose 114 H Lactic Acid Calcium 8.1 L Phosphorus 5.10 H Magnesium Iron TIBC AST ALT Alkaline Phosphatase Lactate Dehydrogenase Total Creatine Kinase C-Reactive Protein Total Protein Albumin Prealbumin CA 19-9 Antigen Folate PTH Intact Urine WBC (Auto) Urine Creatinine Urine Chloride Urine Total Protein Fluid Glucose Fluid Total Protein Vancomycin Trough Miscellaneous Test Crossmatch 06/07/18 06/08/18 06/08/18 12:15 05:05 05:24 WBC RBC Hgb Hct MCHC RDW Plt Count Lymph % (Auto) Hand % (Auto) Lymph # Hand # Seg Neutrophils % Seg Neuts % (Manual) Lymphocytes % (Manual) Seg Neutrophils # Seg Neutrophils # Man Lymphocytes # (Manual) PT INR APTT POC ABG pH POC ABG pCO2 POC ABG pO2 Sodium 148 H Potassium Chloride 112.4 H Carbon Dioxide BUN 89 H Creatinine 3.4 H Glucose 120 H POC Glucose 148 H 115 H Lactic Acid Calcium 7.9 L Phosphorus Magnesium Iron TIBC AST ALT Alkaline Phosphatase Lactate Dehydrogenase Total Creatine Kinase C-Reactive Protein Total Protein Albumin Prealbumin CA 19-9 Antigen Folate PTH Intact Urine WBC (Auto) Urine Creatinine Urine Chloride Urine Total Protein Fluid Glucose Fluid Total Protein Vancomycin Trough Miscellaneous Test Crossmatch 06/08/18 06/08/18 06/08/18 21:36 21:43 21:43 WBC RBC 2.98 L Hgb 8.8 L Hct 26.6 L MCHC RDW 16.7 H Plt Count 463 H Lymph % (Auto) 7.9 L Hand % (Auto) Lymph # 0.8 L Hand # Seg Neutrophils % 84.8 H Seg Neuts % (Manual) Lymphocytes % (Manual) Seg Neutrophils # 8.6 H Seg Neutrophils # Man Lymphocytes # (Manual) PT INR APTT POC ABG pH POC ABG pCO2 POC ABG pO2 Sodium Potassium Chloride Carbon Dioxide BUN Creatinine Glucose POC Glucose Lactic Acid Calcium Phosphorus Magnesium Iron TIBC AST ALT Alkaline Phosphatase Lactate Dehydrogenase 297 H Total Creatine Kinase C-Reactive Protein Total Protein Albumin Prealbumin CA 19-9 Antigen 57 H Folate PTH Intact Urine WBC (Auto) Urine Creatinine Urine Chloride Urine Total Protein Fluid Glucose Fluid Total Protein Vancomycin Trough Miscellaneous Test Crossmatch 06/09/18 06/09/18 06/09/18 00:05 05:34 05:50 WBC RBC Hgb Hct MCHC RDW Plt Count Lymph % (Auto) Hand % (Auto) Lymph # Hand # Seg Neutrophils % Seg Neuts % (Manual) Lymphocytes % (Manual) Seg Neutrophils # Seg Neutrophils # Man Lymphocytes # (Manual) PT INR APTT POC ABG pH POC ABG pCO2 POC ABG pO2 Sodium 153 H Potassium Chloride 117.3 H Carbon Dioxide BUN 84 H Creatinine 3.2 H Glucose 117 H POC Glucose 140 H 146 H Lactic Acid Calcium 7.9 L Phosphorus Magnesium Iron TIBC AST ALT Alkaline Phosphatase Lactate Dehydrogenase Total Creatine Kinase C-Reactive Protein Total Protein Albumin Prealbumin CA 19-9 Antigen Folate PTH Intact Urine WBC (Auto) Urine Creatinine Urine Chloride Urine Total Protein Fluid Glucose Fluid Total Protein Vancomycin Trough Miscellaneous Test Crossmatch 06/09/18 06/09/18 06/09/18 05:50 07:37 10:34 WBC RBC 2.32 L Hgb 6.8 L Hct 20.7 L MCHC RDW 16.7 H Plt Count Lymph % (Auto) Hand % (Auto) Lymph # Hand # Seg Neutrophils % Seg Neuts % (Manual) Lymphocytes % (Manual) Seg Neutrophils # Seg Neutrophils # Man Lymphocytes # (Manual) PT INR APTT POC ABG pH POC ABG pCO2 POC ABG pO2 Sodium 149 H Potassium Chloride 114.6 H Carbon Dioxide BUN 84 H Creatinine 3.1 H Glucose 137 H POC Glucose Lactic Acid Calcium 7.7 L Phosphorus Magnesium Iron TIBC AST ALT Alkaline Phosphatase Lactate Dehydrogenase Total Creatine Kinase C-Reactive Protein Total Protein Albumin Prealbumin CA 19-9 Antigen Folate PTH Intact Urine WBC (Auto) Urine Creatinine Urine Chloride Urine Total Protein Fluid Glucose Fluid Total Protein Vancomycin Trough Miscellaneous Test Flexitest 1 H Crossmatch 06/09/18 06/09/18 06/09/18 10:41 11:56 13:24 WBC RBC 2.43 L Hgb 7.2 L Hct 21.6 L MCHC RDW 16.8 H Plt Count Lymph % (Auto) Hand % (Auto) Lymph # Hand # Seg Neutrophils % Seg Neuts % (Manual) Lymphocytes % (Manual) Seg Neutrophils # Seg Neutrophils # Man Lymphocytes # (Manual) PT INR APTT POC ABG pH POC ABG pCO2 POC ABG pO2 Sodium Potassium Chloride Carbon Dioxide BUN Creatinine Glucose POC Glucose 141 H Lactic Acid Calcium Phosphorus Magnesium Iron TIBC AST ALT Alkaline Phosphatase Lactate Dehydrogenase Total Creatine Kinase C-Reactive Protein Total Protein Albumin Prealbumin CA 19-9 Antigen Folate PTH Intact Urine WBC (Auto) Urine Creatinine Urine Chloride Urine Total Protein Fluid Glucose Fluid Total Protein Vancomycin Trough Miscellaneous Test Crossmatch See Detail 06/09/18 06/09/18 06/10/18 18:18 23:13 05:26 WBC RBC Hgb Hct MCHC RDW Plt Count Lymph % (Auto) Hand % (Auto) Lymph # Hand # Seg Neutrophils % Seg Neuts % (Manual) Lymphocytes % (Manual) Seg Neutrophils # Seg Neutrophils # Man Lymphocytes # (Manual) PT INR APTT POC ABG pH POC ABG pCO2 POC ABG pO2 Sodium 148 H Potassium Chloride 114.7 H Carbon Dioxide 21 L BUN 79 H Creatinine 3.2 H Glucose 121 H POC Glucose 156 H 163 H Lactic Acid Calcium 7.8 L Phosphorus Magnesium 1.60 L Iron TIBC AST ALT Alkaline Phosphatase Lactate Dehydrogenase Total Creatine Kinase C-Reactive Protein Total Protein Albumin Prealbumin CA 19-9 Antigen Folate PTH Intact Urine WBC (Auto) Urine Creatinine Urine Chloride Urine Total Protein Fluid Glucose Fluid Total Protein Vancomycin Trough Miscellaneous Test Crossmatch 06/10/18 06/10/18 06/10/18 05:26 05:31 17:15 WBC 11.1 H RBC 3.07 L Hgb 9.1 L Hct 27.6 L D MCHC RDW 17.4 H Plt Count Lymph % (Auto) Hand % (Auto) Lymph # Hand # Seg Neutrophils % Seg Neuts % (Manual) Lymphocytes % (Manual) Seg Neutrophils # Seg Neutrophils # Man Lymphocytes # (Manual) PT INR APTT POC ABG pH POC ABG pCO2 POC ABG pO2 Sodium Potassium Chloride Carbon Dioxide BUN Creatinine Glucose POC Glucose 128 H Lactic Acid Calcium Phosphorus Magnesium Iron TIBC AST ALT Alkaline Phosphatase Lactate Dehydrogenase Total Creatine Kinase C-Reactive Protein 3.60 H Total Protein Albumin Prealbumin CA 19-9 Antigen Folate PTH Intact Urine WBC (Auto) Urine Creatinine Urine Chloride Urine Total Protein Fluid Glucose Fluid Total Protein Vancomycin Trough Miscellaneous Test Crossmatch 06/11/18 06/11/18 06/11/18 01:13 05:41 05:41 WBC 14.6 H RBC 3.40 L Hgb 9.8 L Hct 30.7 L MCHC RDW 18.1 H Plt Count Lymph % (Auto) Hand % (Auto) Lymph # Hand # Seg Neutrophils % Seg Neuts % (Manual) Lymphocytes % (Manual) Seg Neutrophils # Seg Neutrophils # Man Lymphocytes # (Manual) PT INR APTT POC ABG pH POC ABG pCO2 POC ABG pO2 Sodium Potassium Chloride 110.8 H Carbon Dioxide 18 L BUN 77 H Creatinine 3.0 H Glucose 116 H POC Glucose 126 H Lactic Acid Calcium 7.9 L Phosphorus Magnesium Iron TIBC AST ALT Alkaline Phosphatase Lactate Dehydrogenase Total Creatine Kinase C-Reactive Protein Total Protein Albumin Prealbumin CA 19-9 Antigen Folate PTH Intact Urine WBC (Auto) Urine Creatinine Urine Chloride Urine Total Protein Fluid Glucose Fluid Total Protein Vancomycin Trough Miscellaneous Test Crossmatch 06/11/18 06/11/18 06/11/18 06:20 07:41 07:41 WBC RBC Hgb Hct MCHC RDW Plt Count Lymph % (Auto) Hand % (Auto) Lymph # Hand # Seg Neutrophils % Seg Neuts % (Manual) Lymphocytes % (Manual) Seg Neutrophils # Seg Neutrophils # Man Lymphocytes # (Manual) PT INR APTT POC ABG pH POC ABG pCO2 POC ABG pO2 Sodium Potassium Chloride Carbon Dioxide BUN Creatinine Glucose POC Glucose 136 H Lactic Acid Calcium Phosphorus Magnesium Iron TIBC AST ALT Alkaline Phosphatase Lactate Dehydrogenase Total Creatine Kinase C-Reactive Protein Total Protein Albumin Prealbumin CA 19-9 Antigen Folate PTH Intact Urine WBC (Auto) 10.0 H Urine Creatinine 41.2 H Urine Chloride 49.2 L Urine Total Protein 142 H Fluid Glucose Fluid Total Protein Vancomycin Trough Miscellaneous Test Crossmatch 06/11/18 06/12/18 06/12/18 18:35 00:34 04:12 WBC RBC 3.18 L Hgb 9.5 L Hct 28.7 L MCHC RDW 18.5 H Plt Count Lymph % (Auto) 8.1 L Hand % (Auto) Lymph # 0.9 L Hand # Seg Neutrophils % 84.6 H Seg Neuts % (Manual) Lymphocytes % (Manual) Seg Neutrophils # 9.1 H Seg Neutrophils # Man Lymphocytes # (Manual) PT INR APTT POC ABG pH POC ABG pCO2 POC ABG pO2 Sodium Potassium Chloride Carbon Dioxide BUN Creatinine Glucose POC Glucose 125 H 129 H Lactic Acid Calcium Phosphorus Magnesium Iron TIBC AST ALT Alkaline Phosphatase Lactate Dehydrogenase Total Creatine Kinase C-Reactive Protein Total Protein Albumin Prealbumin CA 19-9 Antigen Folate PTH Intact Urine WBC (Auto) Urine Creatinine Urine Chloride Urine Total Protein Fluid Glucose Fluid Total Protein Vancomycin Trough Miscellaneous Test Crossmatch 06/12/18 06/12/18 06/12/18 04:12 06:30 11:43 WBC RBC Hgb Hct MCHC RDW Plt Count Lymph % (Auto) Hand % (Auto) Lymph # Hand # Seg Neutrophils % Seg Neuts % (Manual) Lymphocytes % (Manual) Seg Neutrophils # Seg Neutrophils # Man Lymphocytes # (Manual) PT INR APTT POC ABG pH POC ABG pCO2 POC ABG pO2 Sodium Potassium Chloride 108.5 H Carbon Dioxide 21 L BUN 72 H Creatinine 3.0 H Glucose 122 H POC Glucose 129 H 126 H Lactic Acid Calcium 7.8 L Phosphorus Magnesium Iron TIBC AST 45 H ALT Alkaline Phosphatase 200 H Lactate Dehydrogenase Total Creatine Kinase 34 L C-Reactive Protein Total Protein Albumin 1.7 L Prealbumin CA 19-9 Antigen Folate PTH Intact Urine WBC (Auto) Urine Creatinine Urine Chloride Urine Total Protein Fluid Glucose Fluid Total Protein Vancomycin Trough Miscellaneous Test Crossmatch 06/12/18 06/12/18 06/13/18 16:00 23:56 03:44 WBC RBC Hgb Hct MCHC RDW Plt Count Lymph % (Auto) Hand % (Auto) Lymph # Hand # Seg Neutrophils % Seg Neuts % (Manual) Lymphocytes % (Manual) Seg Neutrophils # Seg Neutrophils # Man Lymphocytes # (Manual) PT INR APTT POC ABG pH POC ABG pCO2 POC ABG pO2 Sodium Potassium Chloride Carbon Dioxide BUN Creatinine Glucose POC Glucose 123 H 128 H 121 H Lactic Acid Calcium Phosphorus Magnesium Iron TIBC AST ALT Alkaline Phosphatase Lactate Dehydrogenase Total Creatine Kinase C-Reactive Protein Total Protein Albumin Prealbumin CA 19-9 Antigen Folate PTH Intact Urine WBC (Auto) Urine Creatinine Urine Chloride Urine Total Protein Fluid Glucose Fluid Total Protein Vancomycin Trough Miscellaneous Test Crossmatch 06/13/18 06/13/18 06/14/18 05:59 11:29 01:08 WBC RBC Hgb Hct MCHC RDW Plt Count Lymph % (Auto) Hand % (Auto) Lymph # Hand # Seg Neutrophils % Seg Neuts % (Manual) Lymphocytes % (Manual) Seg Neutrophils # Seg Neutrophils # Man Lymphocytes # (Manual) PT INR APTT POC ABG pH POC ABG pCO2 POC ABG pO2 Sodium 134 L Potassium Chloride Carbon Dioxide 20 L BUN 69 H Creatinine 2.9 H Glucose 113 H POC Glucose 124 H 128 H Lactic Acid Calcium 7.8 L Phosphorus Magnesium Iron TIBC AST ALT Alkaline Phosphatase Lactate Dehydrogenase Total Creatine Kinase C-Reactive Protein Total Protein Albumin Prealbumin CA 19-9 Antigen Folate PTH Intact Urine WBC (Auto) Urine Creatinine Urine Chloride Urine Total Protein Fluid Glucose Fluid Total Protein Vancomycin Trough Miscellaneous Test Crossmatch 06/14/18 06/14/18 06/14/18 06:42 06:42 09:50 WBC 11.3 H RBC 3.02 L Hgb 8.8 L Hct 27.3 L MCHC RDW 18.6 H Plt Count Lymph % (Auto) Hand % (Auto) Lymph # Hand # Seg Neutrophils % Seg Neuts % (Manual) Lymphocytes % (Manual) Seg Neutrophils # Seg Neutrophils # Man Lymphocytes # (Manual) PT 16.3 H INR 1.24 H APTT POC ABG pH POC ABG pCO2 POC ABG pO2 Sodium 132 L Potassium Chloride Carbon Dioxide 19 L BUN 71 H Creatinine 3.1 H Glucose POC Glucose Lactic Acid Calcium 7.8 L Phosphorus Magnesium Iron TIBC AST ALT Alkaline Phosphatase Lactate Dehydrogenase Total Creatine Kinase C-Reactive Protein Total Protein Albumin Prealbumin CA 19-9 Antigen Folate PTH Intact Urine WBC (Auto) Urine Creatinine Urine Chloride Urine Total Protein Fluid Glucose Fluid Total Protein Vancomycin Trough Miscellaneous Test Crossmatch 06/14/18 06/14/18 06/15/18 12:31 17:04 01:18 WBC RBC Hgb Hct MCHC RDW Plt Count Lymph % (Auto) Hand % (Auto) Lymph # Hand # Seg Neutrophils % Seg Neuts % (Manual) Lymphocytes % (Manual) Seg Neutrophils # Seg Neutrophils # Man Lymphocytes # (Manual) PT INR APTT POC ABG pH POC ABG pCO2 POC ABG pO2 Sodium Potassium Chloride Carbon Dioxide BUN Creatinine Glucose POC Glucose 125 H 109 H 124 H Lactic Acid Calcium Phosphorus Magnesium Iron TIBC AST ALT Alkaline Phosphatase Lactate Dehydrogenase Total Creatine Kinase C-Reactive Protein Total Protein Albumin Prealbumin CA 19-9 Antigen Folate PTH Intact Urine WBC (Auto) Urine Creatinine Urine Chloride Urine Total Protein Fluid Glucose Fluid Total Protein Vancomycin Trough Miscellaneous Test Crossmatch 06/15/18 06/15/18 06/15/18 05:27 06:34 11:42 WBC RBC Hgb Hct MCHC RDW Plt Count Lymph % (Auto) Hand % (Auto) Lymph # Hand # Seg Neutrophils % Seg Neuts % (Manual) Lymphocytes % (Manual) Seg Neutrophils # Seg Neutrophils # Man Lymphocytes # (Manual) PT INR APTT POC ABG pH POC ABG pCO2 POC ABG pO2 Sodium 134 L Potassium Chloride Carbon Dioxide 17 L BUN 77 H Creatinine 3.2 H Glucose 110 H POC Glucose 116 H 131 H Lactic Acid Calcium 8.1 L Phosphorus 6.20 H D Magnesium Iron TIBC AST ALT Alkaline Phosphatase Lactate Dehydrogenase Total Creatine Kinase C-Reactive Protein Total Protein Albumin Prealbumin CA 19-9 Antigen Folate PTH Intact Urine WBC (Auto) Urine Creatinine Urine Chloride Urine Total Protein Fluid Glucose Fluid Total Protein Vancomycin Trough Miscellaneous Test Crossmatch 06/16/18 06/16/18 06/16/18 00:57 05:10 06:07 WBC RBC Hgb Hct MCHC RDW Plt Count Lymph % (Auto) Hand % (Auto) Lymph # Hand # Seg Neutrophils % Seg Neuts % (Manual) Lymphocytes % (Manual) Seg Neutrophils # Seg Neutrophils # Man Lymphocytes # (Manual) PT INR APTT POC ABG pH POC ABG pCO2 POC ABG pO2 Sodium 132 L Potassium Chloride Carbon Dioxide 19 L BUN 83 H Creatinine 3.2 H Glucose 113 H POC Glucose 137 H 109 H Lactic Acid Calcium 7.8 L Phosphorus 6.10 H Magnesium Iron TIBC AST ALT Alkaline Phosphatase Lactate Dehydrogenase Total Creatine Kinase C-Reactive Protein Total Protein Albumin Prealbumin CA 19-9 Antigen Folate PTH Intact Urine WBC (Auto) Urine Creatinine Urine Chloride Urine Total Protein Fluid Glucose Fluid Total Protein Vancomycin Trough Miscellaneous Test Crossmatch 06/16/18 06/16/18 06/17/18 11:51 15:46 00:02 WBC RBC Hgb Hct MCHC RDW Plt Count Lymph % (Auto) Hand % (Auto) Lymph # Hand # Seg Neutrophils % Seg Neuts % (Manual) Lymphocytes % (Manual) Seg Neutrophils # Seg Neutrophils # Man Lymphocytes # (Manual) PT INR APTT POC ABG pH POC ABG pCO2 POC ABG pO2 Sodium Potassium Chloride Carbon Dioxide BUN Creatinine Glucose POC Glucose 126 H 127 H 107 H Lactic Acid Calcium Phosphorus Magnesium Iron TIBC AST ALT Alkaline Phosphatase Lactate Dehydrogenase Total Creatine Kinase C-Reactive Protein Total Protein Albumin Prealbumin CA 19-9 Antigen Folate PTH Intact Urine WBC (Auto) Urine Creatinine Urine Chloride Urine Total Protein Fluid Glucose Fluid Total Protein Vancomycin Trough Miscellaneous Test Crossmatch 06/17/18 06/17/18 06/17/18 05:52 11:46 16:58 WBC RBC Hgb Hct MCHC RDW Plt Count Lymph % (Auto) Hand % (Auto) Lymph # Hand # Seg Neutrophils % Seg Neuts % (Manual) Lymphocytes % (Manual) Seg Neutrophils # Seg Neutrophils # Man Lymphocytes # (Manual) PT INR APTT POC ABG pH POC ABG pCO2 POC ABG pO2 Sodium 133 L Potassium Chloride Carbon Dioxide 17 L BUN 87 H Creatinine 3.2 H Glucose POC Glucose 129 H 140 H Lactic Acid Calcium 8.1 L Phosphorus 6.50 H Magnesium Iron TIBC AST ALT Alkaline Phosphatase Lactate Dehydrogenase Total Creatine Kinase C-Reactive Protein Total Protein Albumin Prealbumin 0.130 L CA 19-9 Antigen Folate PTH Intact Urine WBC (Auto) Urine Creatinine Urine Chloride Urine Total Protein Fluid Glucose Fluid Total Protein Vancomycin Trough Miscellaneous Test Crossmatch 06/18/18 06/18/18 06/18/18 04:04 04:04 14:15 WBC RBC 3.00 L Hgb 8.9 L Hct 26.5 L MCHC RDW 17.8 H Plt Count 494 H Lymph % (Auto) 7.9 L Hand % (Auto) 9.3 H Lymph # 0.8 L Hand # 1.0 H Seg Neutrophils % 81.2 H Seg Neuts % (Manual) Lymphocytes % (Manual) Seg Neutrophils # 8.6 H Seg Neutrophils # Man Lymphocytes # (Manual) PT INR APTT POC ABG pH POC ABG pCO2 POC ABG pO2 Sodium 128 L Potassium Chloride Carbon Dioxide 18 L BUN 88 H Creatinine 3.1 H Glucose 129 H POC Glucose 143 H Lactic Acid Calcium 7.8 L Phosphorus 6.20 H Magnesium Iron TIBC AST ALT Alkaline Phosphatase Lactate Dehydrogenase Total Creatine Kinase C-Reactive Protein Total Protein Albumin Prealbumin CA 19-9 Antigen Folate PTH Intact Urine WBC (Auto) Urine Creatinine Urine Chloride Urine Total Protein Fluid Glucose Fluid Total Protein Vancomycin Trough Miscellaneous Test Crossmatch 06/18/18 06/19/18 06/19/18 17:54 01:45 06:20 WBC RBC Hgb Hct MCHC RDW Plt Count Lymph % (Auto) Hand % (Auto) Lymph # Hand # Seg Neutrophils % Seg Neuts % (Manual) Lymphocytes % (Manual) Seg Neutrophils # Seg Neutrophils # Man Lymphocytes # (Manual) PT INR APTT POC ABG pH POC ABG pCO2 POC ABG pO2 Sodium Potassium Chloride 93.9 L Carbon Dioxide BUN 78 H Creatinine 2.8 H Glucose POC Glucose 138 H 141 H Lactic Acid Calcium 7.1 L Phosphorus 6.40 H Magnesium Iron TIBC AST ALT Alkaline Phosphatase Lactate Dehydrogenase Total Creatine Kinase C-Reactive Protein Total Protein Albumin Prealbumin CA 19-9 Antigen Folate PTH Intact Urine WBC (Auto) Urine Creatinine Urine Chloride Urine Total Protein Fluid Glucose Fluid Total Protein Vancomycin Trough Miscellaneous Test Crossmatch 06/19/18 06/19/18 06/19/18 06:49 07:59 16:32 WBC RBC Hgb Hct MCHC RDW Plt Count Lymph % (Auto) Hand % (Auto) Lymph # Hand # Seg Neutrophils % Seg Neuts % (Manual) Lymphocytes % (Manual) Seg Neutrophils # Seg Neutrophils # Man Lymphocytes # (Manual) PT INR APTT POC ABG pH POC ABG pCO2 POC ABG pO2 Sodium Potassium Chloride Carbon Dioxide BUN 80 H Creatinine 2.9 H Glucose 123 H POC Glucose 130 H 134 H Lactic Acid Calcium 7.7 L Phosphorus Magnesium Iron TIBC AST ALT Alkaline Phosphatase Lactate Dehydrogenase Total Creatine Kinase C-Reactive Protein Total Protein Albumin Prealbumin CA 19-9 Antigen Folate PTH Intact Urine WBC (Auto) Urine Creatinine Urine Chloride Urine Total Protein Fluid Glucose Fluid Total Protein Vancomycin Trough Miscellaneous Test Crossmatch 06/20/18 06/20/18 06/20/18 00:11 05:55 05:55 WBC RBC 2.73 L Hgb 8.0 L Hct 24.2 L MCHC RDW 17.4 H Plt Count 512 H Lymph % (Auto) 12.3 L Hand % (Auto) 11.3 H Lymph # 1.1 L Hand # 1.0 H Seg Neutrophils % 74.8 H Seg Neuts % (Manual) Lymphocytes % (Manual) Seg Neutrophils # Seg Neutrophils # Man Lymphocytes # (Manual) PT INR APTT POC ABG pH POC ABG pCO2 POC ABG pO2 Sodium Potassium Chloride Carbon Dioxide 32 H BUN 70 H Creatinine 2.5 H Glucose 105 H POC Glucose 131 H Lactic Acid Calcium 8.0 L Phosphorus Magnesium Iron TIBC AST ALT Alkaline Phosphatase Lactate Dehydrogenase Total Creatine Kinase C-Reactive Protein Total Protein Albumin Prealbumin CA 19-9 Antigen Folate PTH Intact Urine WBC (Auto) Urine Creatinine Urine Chloride Urine Total Protein Fluid Glucose Fluid Total Protein Vancomycin Trough Miscellaneous Test Crossmatch 06/20/18 06/20/18 05:55 12:10 WBC RBC Hgb Hct MCHC RDW Plt Count Lymph % (Auto) Hand % (Auto) Lymph # Hand # Seg Neutrophils % Seg Neuts % (Manual) Lymphocytes % (Manual) Seg Neutrophils # Seg Neutrophils # Man Lymphocytes # (Manual) PT INR APTT POC ABG pH POC ABG pCO2 POC ABG pO2 Sodium Potassium Chloride Carbon Dioxide BUN Creatinine Glucose POC Glucose 112 H 127 H Lactic Acid Calcium Phosphorus Magnesium Iron TIBC AST ALT Alkaline Phosphatase Lactate Dehydrogenase Total Creatine Kinase C-Reactive Protein Total Protein Albumin Prealbumin CA 19-9 Antigen Folate PTH Intact Urine WBC (Auto) Urine Creatinine Urine Chloride Urine Total Protein Fluid Glucose Fluid Total Protein Vancomycin Trough Miscellaneous Test Crossmatch Chest x-ray: image reviewed (bilateral small to moderate pleural effusions persistent) Allied health notes reviewed: nursing
--- NOTE | 2018-06-20 14:00 | Hem/Onc Progress Note ---
Assessment and Plan #bowel obstruction - s/p diverting colostomy 05/26 sx notes -mentions matted mass #radiology Pelvic mass Large pelvic mass between bladder and rectum with large lymph nodes, s/p cystoscopy prostate area bx - sq cell features- anal vs lung path from ascites and pleural fluid reviewed # CT had shown bowel obstruction - s/p diverting colostomy # anemia - PRBC as needed low folate - on replacement # h/o leukocytosis on 05/22 - we will follow - likely reactive # h/o Acute kidney injury due to pelvic mass - Nephrology following. Ultrasound Kidneys showed bilat hydronephrosis CT Abd shows Pelvic mass with multiple large lymph nodes Had bilateral nephrostomy tubes placed 05/14/[address] Freeman. 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 Ct chest was done - CTA - no PE treatment for pneumonia LTAC eval CA 19-9 - 57 - elevated PSA not elevated Once clinically better - OP follow up for more IX and Rx options for his sq cell ca - Patient Problems (1) Pelvic mass in male Current Visit: Yes Status: Acute Subjective Date of service: 06/20/18 Principal diagnosis: sq cell ca Interval history: pt had diverting colostomy 05/26 has colostomy on 06/14 - rt chest thoracentesis done Objective - Constitutional Vitals: Last Vital Signs Temp 98.6 F 06/20/18 12:08 Pulse 88 06/20/18 12:08 Resp 18 06/20/18 12:08 BP 174/100 06/20/18 12:08 Pulse Ox 96 06/20/18 12:08 Pain Intensity (0-10): denies any pain General appearance: no acute distress Performance status: 3-limited selfcare - EENT ENT: clear oral mucosa Lymph node exam: negative cervical, negative supraclavicular - Respiratory Respiratory: bilateral: CTA (anteriorly) - Cardiovascular Heart Sounds: Present: S1 & S2 Extremities: No edema - Gastrointestinal General gastrointestinal: Present: soft, other (colostomy) Rectal Exam: deferred - Genitourinary Male genitourinary: Present: deferred - Musculoskeletal Musculoskeletal: generalized weakness - Neurologic Neurologic: moves all extremities - Labs Lab Results: Laboratory Results - last 24 hr 06/19/18 06/20/18 06/20/18 16:32 00:11 05:55 WBC 8.6 RBC 2.73 L Hgb 8.0 L Hct 24.2 L MCV 89 MCH 29 MCHC 33 RDW 17.4 H Plt Count 512 H Lymph % (Auto) 12.3 L [place] % (Auto) 11.3 H Eos % (Auto) 0.6 Baso % (Auto) 1.0 Lymph # 1.1 L [place] # 1.0 H Eos # 0.0 Baso # 0.1 Seg Neutrophils % 74.8 H Seg Neutrophils # 6.4 Sodium Potassium Chloride Carbon Dioxide Anion Gap BUN Creatinine Estimated GFR BUN/Creatinine Ratio Glucose POC Glucose 134 H 131 H Calcium Phosphorus Magnesium 06/20/18 06/20/18 06/20/18 05:55 05:55 12:10 WBC RBC Hgb Hct MCV MCH MCHC RDW Plt Count Lymph % (Auto) [place] % (Auto) Eos % (Auto) Baso % (Auto) Lymph # [place] # Eos # Baso # Seg Neutrophils % Seg Neutrophils # Sodium 143 Potassium 3.6 Chloride 98.6 Carbon Dioxide 32 H Anion Gap 16 BUN 70 H Creatinine 2.5 H Estimated GFR 33 BUN/Creatinine Ratio 28 Glucose 105 H POC Glucose 112 H 127 H Calcium 8.0 L Phosphorus 4.50 D Magnesium 2.00
[2018-06-20] MEDS ORDERED: TPN ADULT 2,016 ML IV SCH (20:00)
[2018-06-20] MEDS: NORMODYNE PO SCH (21:03)
[2018-06-21 06:02] LABS: Basophils # (Auto) 0.1 K/mm3 (0.0-0.1); Basophils % (Auto) 0.9 % (0.0-1.8); Eosinophils % (Auto) 0.4 % (0.0-4.3); Mean Corpuscular HGB Conc 29 % (32-34); Mean Corpuscular Hemoglobin 30 pg (28-32); Mean Corpuscular Volume 104 fl (84-94); Monocytes # (Auto) 0.7 K/mm3 (0.0-0.8); Monocytes % (Auto) 7.4 % (0.0-7.3); Platelet Count 521 K/mm3 (140-440); Red Blood Count 2.57 M/mm3 (3.65-5.03); Red Cell Distribution Width 19.1 % (13.2-15.2)
[2018-06-21 06:19] LABS: Hematocrit 26.6 % (35.5-45.6); Hemoglobin 7.7 gm/dl (11.8-15.2)
[2018-06-21 06:29] LABS: Alanine Aminotransferase 35 units/L (7-56); Albumin 1.8 g/dL (3.9-5); BUN/Creatinine Ratio 30; Blood Urea Nitrogen 57 mg/dL (9-20); Calcium 7.3 mg/dL (8.4-10.2); Hemolysis Index 1
[2018-06-21] MEDS: APRESOLINE PO SCH ×3 (06:30→22:25)
[2018-06-21] MEDS ORDERED: KIONEX PR NR (08:23)
--- NOTE | 2018-06-21 08:23 | Progress Note ---
Assessment and Plan 1. Acute kidney injury: Initial MARYLOU in the setting of bilateral hydronephrosis secondary to pelvic mass , now s/p bilateral nephrostomy. Recurrent Acute kidney injury likely ATN. Patient was started on hemodialysis due to worsening renal function and persistent hyperkalemia. Last dialyzed on 06/02/18. BUN and Creatinine level are improving. Continue IV fluids. Renal prognosis is guarded. 2. Electrolytes: Hyperkalemia, Kayexalate ordered. Metabolic acidosis, improved. 3. Bowel obstruction: S/p ostomy. 4. Bilateral hydronephrosis: Secondary to pelvic mass. S/p bilateral nephrostomy. S/p Cysto and drainage of abscess. 5. Respiratory failure: S/p extubated. 6. Hypertension: Continue Clonidine patch and Labetalol. Monitor BP. 7. Sepsis: Complicated UTI and pneumonia. On Zosyn. 8. Anemia. 9. 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 Await LTAC placement. Subjective Date of service: 06/21/18 Principal diagnosis: sq cell ca Interval history: Patient was seen and examined at the bedside. Objective - Vital Signs Vital signs: Vital Signs - 12hr 06/20/18 06/20/18 06/20/18 20:51 20:58 21:03 Temperature Pulse Rate 97 H 97 H Respiratory Rate Blood Pressure 174/105 174/105 O2 Sat by Pulse 98 Oximetry 06/20/18 06/20/18 06/21/18 22:00 23:52 05:11 Temperature 98.1 F 97.7 F Pulse Rate 98 H 90 118 H Respiratory 18 22 Rate Blood Pressure 159/94 155/101 O2 Sat by Pulse 93 95 Oximetry - General Appearance General appearance: well-developed, appears stated age, other (not in distress) EENT: ATNC, PERRL, mucous membranes moist, hearing intact, vision intact Neck: supple Respiratory: Present: Clear to Ascultation Cardiology: regular, S1S2, no murmurs Gastrointestinal: normoactive bowel sounds, distended, other (ostomy, drain and bilateral nephrostomy tubes noted) Integumentary: no rash Neurologic: no focal deficit, no asterixis Musculoskeletal: other (no edema) Psychiatric: cooperative - Lab 06/21/18 05:50 06/21/18 17:00 Most recent lab results Calcium 7.3 mg/dL (8.4-10.2) L 06/21/18 05:50 Phosphorus 4.40 mg/dL (2.5-4.5) 06/21/18 05:50 Magnesium 2.20 mg/dL (1.7-2.3) 06/21/18 05:50 Urine Creatinine 41.2 mg/dL (0.1-20.0) H 06/11/18 07:41 Urine Sodium 79 mmol/L 06/11/18 07:41 Urine Total Protein 142 mg/dL (5-11.8) H 06/11/18 07:41
[2018-06-21] MEDS: FOLVITE PO SCH (10:00)
--- NOTE | 2018-06-21 10:53 | Progress Note ---
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 Differentiated carcinoma with squamous differentiation on pathology but unsure of exact primary Continue pain control PRN Bilateral pneumonia (possibly aspiration) Monitor respiratory status Continue Nebs PRN Continue antibiotic Bilateral moderate pleural effusion Exudative with negative cytology--CHF versus acute kidney injury/volume overload/third spacing. Sepsis Continue Zosyn Acute kidney injury (obstructive uropathy vs contrast nephropathy) was on hemodialysis temporarily. Stable renal function. Dialysis catheter removed as per nephrology Continue to monitor BMP and kidney fuction Had bilateral nephrostomy tubes placed 05/14/[address] Freeman. Acute deep venous thrombosis Anticoagulation previously on hold because of anemia, bilateral nephrostomy tubes and abdominal surgery We will restart anticoagulation -- will check with Heme Start Lovenox SC 1mg/kg BID Bowel obstruction Etiology secondary to extrinsic compression from mass. Continue TPN Moderate to severe protein calorie malnutrition Continue tube feeding Started on diet and tolerating Hypokalemia, now resolved Potassium and mag replacement as needed Anemia due to Chronic illness s/p PRBC transfusion Plan is for LTAC. However,not yet approved. History Interval history: Feels better, No abdominal pain currently Hospitalist Physical - Physical exam Narrative exam: GEN:Not in acute distress, lying in bed, ill looking, HEENT: Normocephalic, atraumatic, Neck: supple, No JVD Lungs: Decreased breath sounds both bases, no crackles Heart:S1 and S2 regular no murmurs, rubs or gallop Abd:soft, mild tender, ostomy, bilat nephrostomy tubes, bowel sounds present Ext: No edema, clubbing or cyanosis Neuro: Awake, alert,oriented x 3, moves all ext - Constitutional Vitals: Temp Pulse Resp BP Pulse Ox 97.6 F 101 H 22 161/101 96 06/21/18 08:20 06/21/18 08:20 06/21/18 08:20 06/21/18 08:20 06/21/18 08:20 General appearance: Present: no acute distress Results - Labs CBC & Chem 7: 06/21/18 05:50 06/21/18 17:00 Labs: Laboratory Last Values WBC 9.7 K/mm3 (4.5-11.0) 06/21/18 05:50 RBC 2.57 M/mm3 (3.65-5.03) L 06/21/18 05:50 Hgb 7.7 gm/dl (11.8-15.2) L 06/21/18 05:50 Hct 26.6 % (35.5-45.6) L 06/21/18 05:50 MCV 104 fl (84-94) H 06/21/18 05:50 MCH 30 pg (28-32) 06/21/18 05:50 MCHC 29 % (32-34) L 06/21/18 05:50 RDW 19.1 % (13.2-15.2) H 06/21/18 05:50 Plt Count 521 K/mm3 (140-440) H 06/21/18 05:50 Lymph % (Auto) 10.0 % (13.4-35.0) L 06/21/18 05:50 Chase % (Auto) 7.4 % (0.0-7.3) H 06/21/18 05:50 Eos % (Auto) 0.4 % (0.0-4.3) 06/21/18 05:50 Baso % (Auto) 0.9 % (0.0-1.8) 06/21/18 05:50 Lymph # 1.0 K/mm3 (1.2-5.4) L 06/21/18 05:50 Chase # 0.7 K/mm3 (0.0-0.8) 06/21/18 05:50 Eos # 0.0 K/mm3 (0.0-0.4) 06/21/18 05:50 Baso # 0.1 K/mm3 (0.0-0.1) 06/21/18 05:50 Add Manual Diff Complete 05/31/18 04:50 Total Counted 100 05/31/18 04:50 Seg Neutrophils % 81.3 % (40.0-70.0) H 06/21/18 05:50 Seg Neuts % (Manual) 91.0 % (40.0-70.0) H 05/31/18 04:50 Band Neutrophils % 2.0 % 05/31/18 04:50 Lymphocytes % (Manual) 2.0 % (13.4-35.0) L 05/31/18 04:50 Reactive Lymphs % (Man) 0 % 05/31/18 04:50 Monocytes % (Manual) 2.0 % (0.0-7.3) 05/31/18 04:50 Eosinophils % (Manual) 1.0 % (0.0-4.3) 05/31/18 04:50 Basophils % (Manual) 0 % (0.0-1.8) 05/31/18 04:50 Metamyelocytes % 1.0 % 05/31/18 04:50 Myelocytes % 1.0 % 05/31/18 04:50 Promyelocytes % 0 % 05/31/18 04:50 Blast Cells % 0 % 05/31/18 04:50 Nucleated RBC % Not Reportable 05/31/18 04:50 Seg Neutrophils # 7.9 K/mm3 (1.8-7.7) H 06/21/18 05:50 Seg Neutrophils # Man 17.0 K/mm3 (1.8-7.7) H 05/31/18 04:50 Band Neutrophils # 0.4 K/mm3 05/31/18 04:50 Lymphocytes # (Manual) 0.4 K/mm3 (1.2-5.4) L 05/31/18 04:50 Abs React Lymphs (Man) 0.0 K/mm3 05/31/18 04:50 Monocytes # (Manual) 0.4 K/mm3 (0.0-0.8) 05/31/18 04:50 Eosinophils # (Manual) 0.2 K/mm3 (0.0-0.4) 05/31/18 04:50 Basophils # (Manual) 0.0 K/mm3 (0.0-0.1) 05/31/18 04:50 Metamyelocytes # 0.2 K/mm3 05/31/18 04:50 Myelocytes # 0.2 K/mm3 05/31/18 04:50 Promyelocytes # 0.0 K/mm3 05/31/18 04:50 Blast Cells # 0.0 K/mm3 05/31/18 04:50 WBC Morphology Not Reportable 05/31/18 04:50 Hypersegmented Neuts Not Reportable 05/31/18 04:50 Hyposegmented Neuts Not Reportable 05/31/18 04:50 Hypogranular Neuts Not Reportable 05/31/18 04:50 Smudge Cells Not Reportable 05/31/18 04:50 Toxic Granulation Not Reportable 05/31/18 04:50 Toxic Vacuolation Not Reportable 05/31/18 04:50 Dohle Bodies Not Reportable 05/31/18 04:50 Pelger-Huet Anomaly Not Reportable 05/31/18 04:50 Mahesh Rods Not Reportable 05/31/18 04:50 Platelet Estimate Appears normal 05/31/18 04:50 Clumped Platelets Not Reportable 05/31/18 04:50 Plt Clumps, EDTA Not Reportable 05/31/18 04:50 Large Platelets Not Reportable 05/31/18 04:50 Giant Platelets Not Reportable 05/31/18 04:50 Platelet Satelliting Not Reportable 05/31/18 04:50 Plt Morphology Comment Not Reportable 05/31/18 04:50 RBC Morphology Not Reportable 05/31/18 04:50 Dimorphic RBCs Not Reportable 05/31/18 04:50 Polychromasia Not Reportable 05/31/18 04:50 Hypochromasia Few 05/31/18 04:50 Poikilocytosis Not Reportable 05/31/18 04:50 Anisocytosis 1+ 05/31/18 04:50 Microcytosis Few 05/31/18 04:50 Macrocytosis Not Reportable 05/31/18 04:50 Spherocytes Not Reportable 05/31/18 04:50 Pappenheimer Bodies Not Reportable 05/31/18 04:50 Sickle Cells Not Reportable 05/31/18 04:50 Target Cells Rare 05/31/18 04:50 Tear Drop Cells Not Reportable 05/31/18 04:50 Ovalocytes 1+ 05/31/18 04:50 Helmet Cells Not Reportable 05/31/18 04:50 Hernandez-[place] Bodies Not Reportable 05/31/18 04:50 [place] Rings Not Reportable 05/31/18 04:50 Nory Cells Not Reportable 05/31/18 04:50 Bite Cells Not Reportable 05/31/18 04:50 Crenated Cell Not Reportable 05/31/18 04:50 Elliptocytes Not Reportable 05/31/18 04:50 Acanthocytes (Spur) Not Reportable 05/31/18 04:50 Rouleaux Not Reportable 05/31/18 04:50 Hemoglobin C Crystals Not Reportable 05/31/18 04:50 Schistocytes Not Reportable 05/31/18 04:50 Malaria parasites Not Reportable 05/31/18 04:50 Mk Bodies Not Reportable 05/31/18 04:50 Hem Pathologist Commnt No 05/31/18 04:50 PT 16.3 Sec. (12.2-14.9) H 06/14/18 09:50 INR 1.24 (0.87-1.13) H 06/14/18 09:50 APTT 40.0 Sec. (24.2-36.6) H 05/23/18 09:03 POC ABG pH 7.362 (7.35-7.45) 05/31/18 09:58 POC ABG pCO2 36.4 (35-45) 05/31/18 09:58 POC ABG pO2 101 (80-105) 05/31/18 09:58 POC ABG HCO3 20.7 05/31/18 09:58 POC ABG Total CO2 22 05/31/18 09:58 POC ABG O2 Sat 98 05/31/18 09:58 POC ABG Base Excess -5 05/31/18 09:58 FiO2 40 % 05/31/18 09:58 Sodium 137 mmol/L (137-145) 06/21/18 05:50 Potassium 5.8 mmol/L (3.6-5.0) H D 06/21/18 05:50 Chloride 90.3 mmol/L (98-107) L 06/21/18 05:50 Carbon Dioxide 37 mmol/L (22-30) H 06/21/18 05:50 Anion Gap 16 mmol/L 06/21/18 05:50 BUN 57 mg/dL (9-20) H 06/21/18 05:50 Creatinine 1.9 mg/dL (0.8-1.5) H 06/21/18 05:50 Estimated GFR 45 ml/min 06/21/18 05:50 BUN/Creatinine Ratio 30 % 06/21/18 05:50 Glucose TNR 06/21/18 05:50 POC Glucose 141 (70-105) H 06/21/18 06:57 Hemoglobin A1c 5.7 % (4-6) 05/14/18 05:05 Lactic Acid 3.80 mmol/L (0.7-2.0) H* 05/26/18 11:00 Calcium 7.3 mg/dL (8.4-10.2) L 06/21/18 05:50 Phosphorus 4.40 mg/dL (2.5-4.5) 06/21/18 05:50 Magnesium 2.20 mg/dL (1.7-2.3) 06/21/18 05:50 Iron 24 ug/dL (49-181) L 05/16/18 07:02 TIBC 160 mcg/dL (250-450) L 05/16/18 07:02 Ferritin 325.8 ng/mL (13.0-400.0) 05/16/18 07:02 Total Bilirubin 0.20 mg/dL (0.1-1.2) 06/21/18 05:50 AST 50 units/L (5-40) H 06/21/18 05:50 ALT 35 units/L (7-56) 06/21/18 05:50 Alkaline Phosphatase 190 units/L (35-129) H 06/21/18 05:50 Lactate Dehydrogenase 297 units/L (91-180) H 06/08/18 21:36 Total Creatine Kinase 34 units/L (55-170) L 06/12/18 04:12 CK-MB (CK-2) 2.3 ng/mL (0.0-4.0) 05/25/18 22:46 CK-MB (CK-2) Rel Index 1.4 (0-4) 05/25/18 22:46 C-Reactive Protein 3.60 mg/dL (0.00-1.30) H 06/10/18 17:15 Total Protein 6.9 g/dL (6.3-8.2) 06/21/18 05:50 Albumin 1.8 g/dL (3.9-5) L 06/21/18 05:50 Albumin/Globulin Ratio 0.4 % 06/21/18 05:50 Prealbumin 0.130 g/L (0.200-0.400) L 06/17/18 05:52 Triglycerides 56 mg/dL (2-149) 06/19/18 06:20 CA 19-9 Antigen 57 U/mL (<34) H 06/08/18 21:43 Prostate Specific Ag 0.96 ng/mL (0.00-4.00) 05/14/18 13:29 Free PSA See scanned result 06/08/18 21:44 % Free PSA Calc See scanned result 06/08/18 21:44 Total PSA See scanned result 06/08/18 21:44 Vitamin B12 359.2 pg/mL (211-911) 05/16/18 07:02 Folate 5.39 ng/mL (7.3-26.0) L 05/16/18 07:02 TSH 3.180 mlU/mL (0.270-4.200) 05/14/18 05:05 PTH Intact 65.37 pg/mL (15-65) H 05/14/18 05:05 Urine Color Yellow (Yellow) 06/11/18 07:41 Urine Turbidity Slightly-cloudy (Clear) 06/11/18 07:41 Urine pH 6.0 (5.0-7.0) 06/11/18 07:41 Ur Specific [place] 1.011 (1.003-1.030) 06/11/18 07:41 Urine Protein 100 mg/dl mg/dL (Negative) 06/11/18 07:41 Urine Glucose (UA) 150 mg/dL (Negative) 06/11/18 07:41 Urine Ketones Neg mg/dL (Negative) 06/11/18 07:41 Urine Blood Sm (Negative) 06/11/18 07:41 Urine Nitrite Neg (Negative) 06/11/18 07:41 Urine Bilirubin Neg (Negative) 06/11/18 07:41 Urine Urobilinogen < 2.0 mg/dL (<2.0) 06/11/18 07:41 Ur Leukocyte Esterase Sm (Negative) 06/11/18 07:41 Urine WBC (Auto) 10.0 /HPF (0.0-6.0) H 06/11/18 07:41 Urine RBC (Auto) 5.0 /HPF (0.0-6.0) 06/11/18 07:41 U Epithel Cells (Auto) 1.0 /HPF (0-13.0) 06/11/18 07:41 Urine Bacteria (Auto) 1+ /HPF (Negative) 06/11/18 07:41 Urine WBC Clumps Few /HPF 05/13/18 19:39 Urine Mucus Few /HPF 06/11/18 07:41 Ur Yeast w [place]pha[place] Few /HPF 06/11/18 07:41 Urine Yeast (Budding) Few /HPF 06/11/18 07:41 Urine Creatinine 41.2 mg/dL (0.1-20.0) H 06/11/18 07:41 Urine Sodium 79 mmol/L 06/11/18 07:41 Urine Potassium 13.27 mmol/L 06/11/18 07:41 Urine Chloride 49.2 mmolL (110-250) L 06/11/18 07:41 Urine Total Protein 142 mg/dL (5-11.8) H 06/11/18 07:41 Fluid Type Ascitic 06/03/18 Unknown Fluid Color Yellow 06/03/18 Unknown Fluid Appearance Cloudy 06/03/18 Unknown Fluid WBC 70786 /mm3 06/03/18 Unknown Fluid RBC 9 /mm3 06/03/18 Unknown Fluid Seg Neutrophils 98.0 % 06/03/18 Unknown Fluid Lymphocytes 2.0 % 06/03/18 Unknown Fluid Reactive Lymphs 0 % 06/03/18 Unknown Fluid Monocytes 0 % 06/03/18 Unknown Fluid Eosinophils 0 % 06/03/18 Unknown Fluid Basophils 0 % 06/03/18 Unknown Fluid Glucose 10 mg/dL (40-70) L 06/03/18 Unknown Fluid Total Protein 3.7 (15.0-45.0) L 06/03/18 Unknown Fluid Albumin 0.8 g/dL 06/03/18 Unknown Fluid LDH > 24098 06/03/18 Unknown Fluid Amylase 126 06/03/18 Unknown Vancomycin Trough 25.1 ug/mL (5.0-20.0) H 05/25/18 22:46 Random Vancomycin 34.3 ug/mL (0-40.0) 05/26/18 11:01 Urine Opiates Screen Presumptive negative 06/11/18 07:41 Urine Methadone Screen Presumptive negative 06/11/18 07:41 Ur Barbiturates Screen Presumptive negative 06/11/18 07:41 Ur Phencyclidine Scrn Presumptive negative 06/11/18 07:41 Ur Amphetamines Screen Presumptive negative 06/11/18 07:41 U Benzodiazepines Scrn Presumptive negative 06/11/18 07:41 Urine Cocaine Screen Presumptive negative 06/11/18 07:41 U Marijuana (THC) Screen Presumptive negative 06/11/18 07:41 Drugs of Abuse Note Disclamer 06/11/18 07:41 ZEUS Screen Negative (Negative) 05/14/18 05:05 Proteinase 3 (PR3) Ab <1.0 AI (<1.0) 05/14/18 05:05 Myeloperoxidase Ab <1.0 AI (<1.0) 05/14/18 05:05 Complement C3 147 mg/dL (82-185) 05/14/18 05:05 Complement C4 45 mg/dL (15-53) 05/14/18 05:05 Hepatitis A IgM Ab Nonreactive (NonReactive) 05/27/18 13:41 Hep Bs Antigen Non-reactive (Negative) 05/27/18 13:41 Hep B Core IgM Ab Non-reactive (NonReactive) 05/27/18 13:41 Hepatitis C Antibody Non-reactive (NonReactive) 05/27/18 13:41 Miscellaneous Test Flexitest 1 H 06/09/18 07:37 Blood Type O POSITIVE 06/09/18 13:24 Antibody Screen Negative 06/09/18 13:24 Crossmatch See Detail 06/09/18 13:24
[2018-06-21] MEDS: NORMODYNE PO SCH ×2 (10:59→22:27)
[2018-06-21] MEDS: PEPCID IV SCH (10:59)
[2018-06-21] MEDS: FERROUS SULFATE PO SCH ×2 (10:59→22:23)
[2018-06-21] MEDS: CATAPRES-TTS PATCH TD SCH (11:00)
[2018-06-21] MEDS: ZOSYN/NS 2.25 GM/50ML 2.25 GM/50 ML BAG IV SCH ×2 (11:00→22:19)
[2018-06-21] MEDS: HumuLIN R SUB-Q SCH ×2 (13:00→17:40)
--- NOTE | 2018-06-21 14:40 | Progress Note ---
Assessment and Plan Acute hypoxemic respiratory failure, possibly secondary to 2. Bilateral pneumonia, possibly aspiration. Sepsis syndrome. 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 Acute deep venous thrombosis. Hypertensive urgency. Hyperkalemia, now resolved. Moderate to severe protein calorie malnutrition Hypernatremia. Hypochloremia. Anemia, normocytic. (ABLA) - recommend anticoagulation for VTE if no plans for immediate surgical intervention - continue supplemental oxygen to keep sats > 90% - repeat thoracentesis if clinically decompensates (pleural fluid cytolgy negative) - optimize cardiac function - continue bronchodilators with pulmonary hygiene per RT - continue aspiration precautions - HD/UF for toxin and volume clearance per nephrology prescription - continue anti-infective's per ID recs (zosyn) - continue TPN for now (enteral nutrition once cleared by surgery) - Malignancy per heme-oncologist - continue mobility protocol for pressure ulcer prophylaxis - s/p surgery 05/26 (had ex-lap; matted abdominal organs, pus) - s/p bilateral nephrostomy tubes placed 05/14/[address] Freeman. - continue other care per attending / other consultants - prn paracentesis - continue other care per attending / other consultants .... discharge planning ongoing concurrently ... re-evaluate in am & prn Subjective Date of service: 06/21/18 Principal diagnosis: Acute Hypoxemic Resp Failure; Sepsis Syndrome; Acute VTE; Prostate Cancer Interval history: Patient is seen today for: Acute Hypoxemic Resp Failure; Sepsis Syndrome; Acute VTE; Prostate Cancer Seen and examined at bedside; 24hour events reviewed; nursing and respiratory care staff consulted; no adverse overnight events reported to me; resting peacefully in bed; remains on supplemental oxygen at 3L flow; still SOB; + cough with mild associated pain; on TPN; tolerating clear liquids Objective Vital Signs - 12hr 06/21/18 06/21/18 06/21/18 05:11 08:00 08:20 Temperature 97.7 F 97.6 F Pulse Rate 118 H 102 H 101 H Respiratory 22 22 Rate Blood Pressure 155/101 Blood Pressure 162/99 [Left] Blood Pressure 161/101 [Right] O2 Sat by Pulse 95 96 Oximetry 06/21/18 13:42 Temperature 97.7 F Pulse Rate 93 H Respiratory 20 Rate Blood Pressure Blood Pressure 153/98 [Left] Blood Pressure [Right] O2 Sat by Pulse 98 Oximetry Constitutional: no acute distress, alert, other (chronically ill looking middle aged AAM, normocephalic and atraumatic, ) Eyes: non-icteric ENT: oropharynx moist, other (Mallampati 2) Neck: supple, no lymphadenopathy, no JVD, other (no thyromegaly) Effort: mildly labored Ascultation: Bilateral: diminished breath sounds, rhonchi (scant in bases) Percussion: Bilateral: not dull, dull (bases) Cardiovascular: regular rate and rhythm, other (No R/M) Gastrointestinal: hypoactive bowel sounds, soft, tender (mild), other (Distended ; No palpable HSM, bilateral nephrostomy tubes,Colostomy, ZAKI drain) Integumentary: other (femoral vascath) Extremities: no cyanosis, no edema, pulses normal, no ischemia or petechiae Neurologic: normal mental status, non-focal exam, pupils equal and round, other (weak) Psychiatric: mood appropriate, affect normal CBC and BMP: 06/21/18 05:50 06/22/18 07:48 ABG, PT/INR, D-dimer: ABG POC ABG pH 7.362 (7.35-7.45) 05/31/18 09:58 POC ABG pCO2 36.4 (35-45) 05/31/18 09:58 POC ABG pO2 101 (80-105) 05/31/18 09:58 POC ABG HCO3 20.7 05/31/18 09:58 POC ABG Total CO2 22 05/31/18 09:58 POC ABG O2 Sat 98 05/31/18 09:58 PT/INR, D-dimer PT 16.3 Sec. (12.2-14.9) H 06/14/18 09:50 INR 1.24 (0.87-1.13) H 06/14/18 09:50 Abnormal lab findings: Abnormal Labs 05/13/18 05/13/18 05/13/18 04:27 04:27 19:39 WBC RBC 3.13 L Hgb 9.4 L Hct 26.8 L MCV MCHC 35 H RDW Plt Count Lymph % (Auto) [place] % (Auto) 9.6 H Lymph # [place] # Seg Neutrophils % Seg Neuts % (Manual) Lymphocytes % (Manual) Seg Neutrophils # Seg Neutrophils # Man Lymphocytes # (Manual) PT INR APTT POC ABG pH POC ABG pCO2 POC ABG pO2 Sodium 132 L Potassium 5.5 H Chloride 94.1 L Carbon Dioxide 19 L BUN 72 H Creatinine 14.4 H Glucose POC Glucose Lactic Acid Calcium Phosphorus Magnesium Iron TIBC AST ALT Alkaline Phosphatase Lactate Dehydrogenase Total Creatine Kinase C-Reactive Protein Total Protein Albumin 2.8 L Prealbumin CA 19-9 Antigen Folate PTH Intact Urine WBC (Auto) Urine Creatinine 66.0 H Urine Chloride 27.8 L Urine Total Protein 24 H Fluid Glucose Fluid Total Protein Vancomycin Trough Miscellaneous Test Crossmatch 05/13/18 05/14/18 05/14/18 20:00 05:05 05:05 WBC RBC Hgb Hct MCV MCHC RDW Plt Count Lymph % (Auto) [place] % (Auto) Lymph # [place] # Seg Neutrophils % Seg Neuts % (Manual) Lymphocytes % (Manual) Seg Neutrophils # Seg Neutrophils # Man Lymphocytes # (Manual) PT INR APTT POC ABG pH POC ABG pCO2 POC ABG pO2 Sodium 132 L 131 L Potassium 5.2 H 5.8 H Chloride 93.0 L 95.6 L Carbon Dioxide 19 L 20 L BUN 74 H 81 H Creatinine 15.0 H 16.6 H Glucose 134 H 127 H POC Glucose Lactic Acid Calcium 8.2 L 7.9 L Phosphorus 6.30 H Magnesium Iron TIBC AST ALT Alkaline Phosphatase Lactate Dehydrogenase Total Creatine Kinase 236 H C-Reactive Protein Total Protein Albumin Prealbumin CA 19-9 Antigen Folate PTH Intact 65.37 H Urine WBC (Auto) Urine Creatinine Urine Chloride Urine Total Protein Fluid Glucose Fluid Total Protein Vancomycin Trough Miscellaneous Test Crossmatch 05/14/18 05/14/18 05/14/18 09:28 10:56 13:29 WBC RBC Hgb Hct MCV MCHC RDW Plt Count Lymph % (Auto) [place] % (Auto) Lymph # [place] # Seg Neutrophils % Seg Neuts % (Manual) Lymphocytes % (Manual) Seg Neutrophils # Seg Neutrophils # Man Lymphocytes # (Manual) PT INR APTT 38.2 H POC ABG pH POC ABG pCO2 POC ABG pO2 Sodium Potassium Chloride Carbon Dioxide BUN Creatinine Glucose POC Glucose 127 H 126 H Lactic Acid Calcium Phosphorus Magnesium Iron TIBC AST ALT Alkaline Phosphatase Lactate Dehydrogenase Total Creatine Kinase C-Reactive Protein Total Protein Albumin Prealbumin CA 19-9 Antigen Folate PTH Intact Urine WBC (Auto) Urine Creatinine Urine Chloride Urine Total Protein Fluid Glucose Fluid Total Protein Vancomycin Trough Miscellaneous Test Crossmatch 05/15/18 05/15/18 05/16/18 08:06 08:06 07:02 WBC RBC 2.84 L 2.74 L Hgb 8.5 L 8.5 L Hct 24.2 L 23.5 L MCV MCHC 35 H 36 H RDW Plt Count Lymph % (Auto) [place] % (Auto) 10.4 H 11.0 H Lymph # 1.1 L [place] # 0.9 H Seg Neutrophils % 72.6 H Seg Neuts % (Manual) Lymphocytes % (Manual) Seg Neutrophils # Seg Neutrophils # Man Lymphocytes # (Manual) PT INR APTT POC ABG pH POC ABG pCO2 POC ABG pO2 Sodium Potassium Chloride Carbon Dioxide 19 L BUN 66 H Creatinine 12.0 H Glucose 115 H POC Glucose Lactic Acid Calcium 8.1 L Phosphorus Magnesium Iron TIBC AST ALT Alkaline Phosphatase Lactate Dehydrogenase Total Creatine Kinase C-Reactive Protein Total Protein Albumin Prealbumin CA 19-9 Antigen Folate PTH Intact Urine WBC (Auto) Urine Creatinine Urine Chloride Urine Total Protein Fluid Glucose Fluid Total Protein Vancomycin Trough Miscellaneous Test Crossmatch 05/16/18 05/16/18 05/17/18 07:02 07:02 05:08 WBC RBC 2.78 L Hgb 8.2 L Hct 23.9 L MCV MCHC RDW Plt Count Lymph % (Auto) [place] % (Auto) 13.9 H Lymph # [place] # 0.9 H Seg Neutrophils % Seg Neuts % (Manual) Lymphocytes % (Manual) Seg Neutrophils # Seg Neutrophils # Man Lymphocytes # (Manual) PT INR APTT POC ABG pH POC ABG pCO2 POC ABG pO2 Sodium Potassium Chloride Carbon Dioxide BUN 28 H Creatinine 2.4 H D Glucose POC Glucose Lactic Acid Calcium 8.3 L Phosphorus Magnesium 1.50 L Iron 24 L TIBC 160 L AST ALT Alkaline Phosphatase Lactate Dehydrogenase Total Creatine Kinase C-Reactive Protein Total Protein Albumin Prealbumin CA 19-9 Antigen Folate 5.39 L PTH Intact Urine WBC (Auto) Urine Creatinine Urine Chloride Urine Total Protein Fluid Glucose Fluid Total Protein Vancomycin Trough Miscellaneous Test Crossmatch 05/17/18 05/18/18 05/18/18 05:08 05:57 05:57 WBC RBC 2.79 L Hgb 8.3 L Hct 24.0 L MCV MCHC 35 H RDW Plt Count Lymph % (Auto) [place] % (Auto) 11.8 H Lymph # [place] # 0.9 H Seg Neutrophils % Seg Neuts % (Manual) Lymphocytes % (Manual) Seg Neutrophils # Seg Neutrophils # Man Lymphocytes # (Manual) PT INR APTT POC ABG pH POC ABG pCO2 POC ABG pO2 Sodium Potassium Chloride Carbon Dioxide BUN Creatinine Glucose POC Glucose Lactic Acid Calcium 7.7 L 8.0 L Phosphorus Magnesium 1.60 L Iron TIBC AST ALT Alkaline Phosphatase Lactate Dehydrogenase Total Creatine Kinase C-Reactive Protein Total Protein Albumin Prealbumin CA 19-9 Antigen Folate PTH Intact Urine WBC (Auto) Urine Creatinine Urine Chloride Urine Total Protein Fluid Glucose Fluid Total Protein Vancomycin Trough Miscellaneous Test Crossmatch 05/19/18 05/19/18 05/20/18 05:33 05:33 05:38 WBC RBC 2.95 L Hgb 8.8 L Hct 25.8 L MCV MCHC RDW Plt Count Lymph % (Auto) 10.1 L [place] % (Auto) Lymph # 1.1 L [place] # Seg Neutrophils % 85.2 H Seg Neuts % (Manual) Lymphocytes % (Manual) Seg Neutrophils # 9.0 H Seg Neutrophils # Man Lymphocytes # (Manual) PT INR APTT POC ABG pH POC ABG pCO2 POC ABG pO2 Sodium 135 L Potassium Chloride Carbon Dioxide BUN Creatinine Glucose 132 H POC Glucose Lactic Acid Calcium 7.8 L 8.3 L Phosphorus Magnesium 1.40 L Iron TIBC AST ALT Alkaline Phosphatase Lactate Dehydrogenase Total Creatine Kinase C-Reactive Protein Total Protein Albumin Prealbumin CA 19-9 Antigen Folate PTH Intact Urine WBC (Auto) Urine Creatinine Urine Chloride Urine Total Protein Fluid Glucose Fluid Total Protein Vancomycin Trough Miscellaneous Test Crossmatch 05/21/18 05/21/18 05/22/18 04:46 15:30 06:49 WBC 20.0 H RBC 2.70 L Hgb 7.8 L Hct 23.3 L MCV MCHC RDW Plt Count Lymph % (Auto) [place] % (Auto) Lymph # [place] # Seg Neutrophils % Seg Neuts % (Manual) 85.0 H Lymphocytes % (Manual) 4.0 L Seg Neutrophils # Seg Neutrophils # Man 17.0 H Lymphocytes # (Manual) 0.8 L PT INR APTT POC ABG pH POC ABG pCO2 POC ABG pO2 Sodium 135 L Potassium 3.5 L Chloride Carbon Dioxide 21 L BUN 22 H Creatinine Glucose POC Glucose Lactic Acid Calcium 8.1 L Phosphorus Magnesium Iron TIBC AST ALT Alkaline Phosphatase Lactate Dehydrogenase Total Creatine Kinase C-Reactive Protein Total Protein Albumin Prealbumin CA 19-9 Antigen Folate PTH Intact Urine WBC (Auto) 28.0 H Urine Creatinine Urine Chloride Urine Total Protein Fluid Glucose Fluid Total Protein Vancomycin Trough Miscellaneous Test Crossmatch 05/22/18 05/22/18 05/23/18 06:49 11:23 09:03 WBC RBC Hgb Hct MCV MCHC RDW Plt Count Lymph % (Auto) [place] % (Auto) Lymph # [place] # Seg Neutrophils % Seg Neuts % (Manual) Lymphocytes % (Manual) Seg Neutrophils # Seg Neutrophils # Man Lymphocytes # (Manual) PT INR APTT POC ABG pH POC ABG pCO2 POC ABG pO2 Sodium 134 L Potassium 3.5 L Chloride Carbon Dioxide 21 L BUN 35 H 36 H Creatinine 1.7 H Glucose 107 H POC Glucose Lactic Acid Calcium 7.9 L Phosphorus Magnesium 2.50 H Iron TIBC AST ALT Alkaline Phosphatase Lactate Dehydrogenase Total Creatine Kinase C-Reactive Protein Total Protein Albumin Prealbumin CA 19-9 Antigen Folate PTH Intact Urine WBC (Auto) Urine Creatinine Urine Chloride Urine Total Protein Fluid Glucose Fluid Total Protein Vancomycin Trough Miscellaneous Test Crossmatch See Detail 05/23/18 05/23/18 05/23/18 09:03 09:03 17:34 WBC 26.3 H RBC 3.57 L Hgb 10.4 L Hct 31.1 L D MCV MCHC RDW Plt Count Lymph % (Auto) [place] % (Auto) Lymph # [place] # Seg Neutrophils % Seg Neuts % (Manual) Lymphocytes % (Manual) Seg Neutrophils # Seg Neutrophils # Man Lymphocytes # (Manual) PT 18.3 H INR 1.43 H APTT 40.0 H POC ABG pH POC ABG pCO2 POC ABG pO2 Sodium Potassium Chloride Carbon Dioxide BUN Creatinine Glucose POC Glucose 108 H Lactic Acid Calcium Phosphorus Magnesium Iron TIBC AST ALT Alkaline Phosphatase Lactate Dehydrogenase Total Creatine Kinase C-Reactive Protein Total Protein Albumin Prealbumin CA 19-9 Antigen Folate PTH Intact Urine WBC (Auto) Urine Creatinine Urine Chloride Urine Total Protein Fluid Glucose Fluid Total Protein Vancomycin Trough Miscellaneous Test Crossmatch 05/23/18 05/24/18 05/24/18 21:14 04:43 08:04 WBC RBC Hgb Hct MCV MCHC RDW Plt Count Lymph % (Auto) [place] % (Auto) Lymph # [place] # Seg Neutrophils % Seg Neuts % (Manual) Lymphocytes % (Manual) Seg Neutrophils # Seg Neutrophils # Man Lymphocytes # (Manual) PT INR APTT POC ABG pH POC ABG pCO2 POC ABG pO2 Sodium 146 H Potassium Chloride 108.6 H Carbon Dioxide BUN 33 H Creatinine Glucose 109 H POC Glucose 110 H 106 H Lactic Acid Calcium 8.3 L Phosphorus Magnesium 2.50 H Iron TIBC AST ALT Alkaline Phosphatase Lactate Dehydrogenase Total Creatine Kinase C-Reactive Protein Total Protein Albumin Prealbumin CA 19-9 Antigen Folate PTH Intact Urine WBC (Auto) Urine Creatinine Urine Chloride Urine Total Protein Fluid Glucose Fluid Total Protein Vancomycin Trough Miscellaneous Test Crossmatch 05/25/18 05/25/18 05/25/18 05:42 05:49 19:50 WBC RBC Hgb Hct MCV MCHC RDW Plt Count Lymph % (Auto) [place] % (Auto) Lymph # [place] # Seg Neutrophils % Seg Neuts % (Manual) Lymphocytes % (Manual) Seg Neutrophils # Seg Neutrophils # Man Lymphocytes # (Manual) PT INR APTT POC ABG pH POC ABG pCO2 POC ABG pO2 Sodium 150 H Potassium Chloride 112.5 H Carbon Dioxide BUN 34 H Creatinine Glucose 102 H POC Glucose 107 H Lactic Acid Calcium Phosphorus Magnesium Iron TIBC AST ALT Alkaline Phosphatase Lactate Dehydrogenase Total Creatine Kinase C-Reactive Protein 34.50 H Total Protein Albumin Prealbumin CA 19-9 Antigen Folate PTH Intact Urine WBC (Auto) Urine Creatinine Urine Chloride Urine Total Protein Fluid Glucose Fluid Total Protein Vancomycin Trough Miscellaneous Test Crossmatch 05/25/18 05/25/18 05/25/18 19:50 21:05 22:46 WBC RBC Hgb Hct MCV MCHC RDW Plt Count Lymph % (Auto) [place] % (Auto) Lymph # [place] # Seg Neutrophils % Seg Neuts % (Manual) Lymphocytes % (Manual) Seg Neutrophils # Seg Neutrophils # Man Lymphocytes # (Manual) PT INR APTT POC ABG pH 7.483 H POC ABG pCO2 24.0 L POC ABG pO2 72 L Sodium Potassium Chloride Carbon Dioxide BUN Creatinine Glucose POC Glucose Lactic Acid 5.90 H* Calcium Phosphorus Magnesium Iron TIBC AST ALT Alkaline Phosphatase Lactate Dehydrogenase Total Creatine Kinase C-Reactive Protein Total Protein Albumin Prealbumin CA 19-9 Antigen Folate PTH Intact Urine WBC (Auto) Urine Creatinine Urine Chloride Urine Total Protein Fluid Glucose Fluid Total Protein Vancomycin Trough 25.1 H Miscellaneous Test Crossmatch 05/25/18 05/26/18 05/26/18 22:46 00:21 00:51 WBC RBC Hgb Hct MCV MCHC RDW Plt Count Lymph % (Auto) [place] % (Auto) Lymph # [place] # Seg Neutrophils % Seg Neuts % (Manual) Lymphocytes % (Manual) Seg Neutrophils # Seg Neutrophils # Man Lymphocytes # (Manual) PT INR APTT POC ABG pH POC ABG pCO2 POC ABG pO2 Sodium Potassium Chloride Carbon Dioxide BUN Creatinine Glucose POC Glucose 133 H Lactic Acid 8.10 H* 6.20 H* Calcium Phosphorus Magnesium Iron TIBC AST ALT Alkaline Phosphatase Lactate Dehydrogenase Total Creatine Kinase C-Reactive Protein Total Protein Albumin Prealbumin CA 19-9 Antigen Folate PTH Intact Urine WBC (Auto) Urine Creatinine Urine Chloride Urine Total Protein Fluid Glucose Fluid Total Protein Vancomycin Trough Miscellaneous Test Crossmatch 05/26/18 05/26/18 05/26/18 01:13 02:24 02:24 WBC 18.7 H RBC Hgb 11.6 L Hct MCV MCHC RDW Plt Count Lymph % (Auto) [place] % (Auto) Lymph # [place] # Seg Neutrophils % Seg Neuts % (Manual) Lymphocytes % (Manual) Seg Neutrophils # Seg Neutrophils # Man Lymphocytes # (Manual) PT INR APTT POC ABG pH POC ABG pCO2 POC ABG pO2 Sodium 147 H Potassium 6.2 H* D Chloride 111.9 H Carbon Dioxide 19 L BUN 80 H Creatinine 5.1 H D Glucose 112 H POC Glucose Lactic Acid 5.20 H* Calcium 6.7 L D Phosphorus Magnesium Iron TIBC AST ALT Alkaline Phosphatase Lactate Dehydrogenase Total Creatine Kinase C-Reactive Protein Total Protein Albumin Prealbumin CA 19-9 Antigen Folate PTH Intact Urine WBC (Auto) Urine Creatinine Urine Chloride Urine Total Protein Fluid Glucose Fluid Total Protein Vancomycin Trough Miscellaneous Test Crossmatch 05/26/18 05/26/18 05/26/18 04:20 04:20 05:39 WBC RBC Hgb Hct MCV MCHC RDW Plt Count Lymph % (Auto) [place] % (Auto) Lymph # [place] # Seg Neutrophils % Seg Neuts % (Manual) Lymphocytes % (Manual) Seg Neutrophils # Seg Neutrophils # Man Lymphocytes # (Manual) PT INR APTT POC ABG pH POC ABG pCO2 POC ABG pO2 Sodium 150 H Potassium Chloride 110.0 H Carbon Dioxide 19 L BUN 66 H Creatinine Glucose 166 H POC Glucose 187 H Lactic Acid 5.10 H* Calcium 6.9 L Phosphorus 6.70 H D Magnesium Iron TIBC AST ALT Alkaline Phosphatase Lactate Dehydrogenase Total Creatine Kinase C-Reactive Protein Total Protein Albumin Prealbumin CA 19-9 Antigen Folate PTH Intact Urine WBC (Auto) Urine Creatinine Urine Chloride Urine Total Protein Fluid Glucose Fluid Total Protein Vancomycin Trough Miscellaneous Test Crossmatch 05/26/18 05/26/18 05/26/18 06:02 07:29 11:00 WBC RBC Hgb Hct MCV MCHC RDW Plt Count Lymph % (Auto) [place] % (Auto) Lymph # [place] # Seg Neutrophils % Seg Neuts % (Manual) Lymphocytes % (Manual) Seg Neutrophils # Seg Neutrophils # Man Lymphocytes # (Manual) PT INR APTT POC ABG pH POC ABG pCO2 28.8 L POC ABG pO2 Sodium Potassium Chloride Carbon Dioxide BUN Creatinine Glucose POC Glucose Lactic Acid 4.80 H* 3.80 H* Calcium Phosphorus Magnesium Iron TIBC AST ALT Alkaline Phosphatase Lactate Dehydrogenase Total Creatine Kinase C-Reactive Protein Total Protein Albumin Prealbumin CA 19-9 Antigen Folate PTH Intact Urine WBC (Auto) Urine Creatinine Urine Chloride Urine Total Protein Fluid Glucose Fluid Total Protein Vancomycin Trough Miscellaneous Test Crossmatch 05/26/18 05/26/18 05/26/18 11:01 12:28 18:00 WBC RBC Hgb Hct MCV MCHC RDW Plt Count Lymph % (Auto) [place] % (Auto) Lymph # [place] # Seg Neutrophils % Seg Neuts % (Manual) Lymphocytes % (Manual) Seg Neutrophils # Seg Neutrophils # Man Lymphocytes # (Manual) PT INR APTT POC ABG pH POC ABG pCO2 POC ABG pO2 Sodium 150 H 151 H Potassium 5.3 H D 6.1 H* Chloride 110.3 H 117.0 H Carbon Dioxide 21 L 20 L BUN 75 H 77 H Creatinine 4.3 H D 4.6 H Glucose 161 H POC Glucose 114 H Lactic Acid Calcium 7.5 L 6.7 L Phosphorus Magnesium Iron TIBC AST 1041 H ALT 406 H Alkaline Phosphatase 281 H Lactate Dehydrogenase Total Creatine Kinase C-Reactive Protein Total Protein 4.4 L Albumin 1.3 L Prealbumin CA 19-9 Antigen Folate PTH Intact Urine WBC (Auto) Urine Creatinine Urine Chloride Urine Total Protein Fluid Glucose Fluid Total Protein Vancomycin Trough Miscellaneous Test Crossmatch 05/26/18 05/26/18 05/27/18 18:02 19:17 01:01 WBC 21.7 H RBC 2.70 L Hgb 7.8 L D Hct 24.6 L D MCV MCHC RDW 15.3 H Plt Count Lymph % (Auto) [place] % (Auto) Lymph # [place] # Seg Neutrophils % Seg Neuts % (Manual) 94.0 H Lymphocytes % (Manual) 3.0 L Seg Neutrophils # Seg Neutrophils # Man 20.4 H Lymphocytes # (Manual) 0.7 L PT INR APTT POC ABG pH 7.159 L 7.205 L POC ABG pCO2 54.5 H 53.0 H POC ABG pO2 252 H Sodium Potassium Chloride Carbon Dioxide BUN Creatinine Glucose POC Glucose Lactic Acid Calcium Phosphorus Magnesium Iron TIBC AST ALT Alkaline Phosphatase Lactate Dehydrogenase Total Creatine Kinase C-Reactive Protein Total Protein Albumin Prealbumin CA 19-9 Antigen Folate PTH Intact Urine WBC (Auto) Urine Creatinine Urine Chloride Urine Total Protein Fluid Glucose Fluid Total Protein Vancomycin Trough Miscellaneous Test Crossmatch 05/27/18 05/27/18 05/27/18 05:15 05:15 06:11 WBC 24.9 H RBC 2.86 L Hgb 8.1 L Hct 25.9 L MCV MCHC RDW 15.5 H Plt Count Lymph % (Auto) [place] % (Auto) Lymph # [place] # Seg Neutrophils % Seg Neuts % (Manual) Lymphocytes % (Manual) Seg Neutrophils # Seg Neutrophils # Man Lymphocytes # (Manual) PT INR APTT POC ABG pH 7.265 L POC ABG pCO2 46.2 H POC ABG pO2 111 H Sodium 149 H Potassium 6.9 H* Chloride 113.5 H Carbon Dioxide BUN 89 H Creatinine 5.2 H Glucose 118 H POC Glucose Lactic Acid Calcium 7.0 L Phosphorus 9.70 H D Magnesium Iron TIBC AST 876 H ALT 408 H Alkaline Phosphatase Lactate Dehydrogenase Total Creatine Kinase C-Reactive Protein Total Protein 5.2 L Albumin 1.5 L Prealbumin CA 19-9 Antigen Folate PTH Intact Urine WBC (Auto) Urine Creatinine Urine Chloride Urine Total Protein Fluid Glucose Fluid Total Protein Vancomycin Trough Miscellaneous Test Crossmatch 05/27/18 05/27/18 05/27/18 08:48 10:22 10:22 WBC RBC Hgb Hct MCV MCHC RDW Plt Count Lymph % (Auto) [place] % (Auto) Lymph # [place] # Seg Neutrophils % Seg Neuts % (Manual) Lymphocytes % (Manual) Seg Neutrophils # Seg Neutrophils # Man Lymphocytes # (Manual) PT INR APTT POC ABG pH POC ABG pCO2 POC ABG pO2 Sodium 146 H Potassium 6.1 H* Chloride 108.2 H Carbon Dioxide 21 L BUN 88 H Creatinine 5.6 H Glucose 163 H POC Glucose 164 H Lactic Acid Calcium 6.7 L Phosphorus Magnesium Iron TIBC AST ALT Alkaline Phosphatase Lactate Dehydrogenase Total Creatine Kinase C-Reactive Protein 40.70 H Total Protein Albumin Prealbumin CA 19-9 Antigen Folate PTH Intact Urine WBC (Auto) Urine Creatinine Urine Chloride Urine Total Protein Fluid Glucose Fluid Total Protein Vancomycin Trough Miscellaneous Test Crossmatch 05/27/18 05/27/18 05/27/18 13:02 17:39 23:27 WBC RBC Hgb Hct MCV MCHC RDW Plt Count Lymph % (Auto) [place] % (Auto) Lymph # [place] # Seg Neutrophils % Seg Neuts % (Manual) Lymphocytes % (Manual) Seg Neutrophils # Seg Neutrophils # Man Lymphocytes # (Manual) PT INR APTT POC ABG pH POC ABG pCO2 POC ABG pO2 Sodium Potassium Chloride Carbon Dioxide BUN Creatinine Glucose POC Glucose 59 L 132 H Lactic Acid Calcium Phosphorus Magnesium Iron TIBC AST ALT Alkaline Phosphatase Lactate Dehydrogenase Total Creatine Kinase C-Reactive Protein Total Protein Albumin Prealbumin CA 19-9 Antigen Folate PTH Intact Urine WBC (Auto) Urine Creatinine Urine Chloride Urine Total Protein Fluid Glucose Fluid Total Protein Vancomycin Trough Miscellaneous Test Flexitest 1 H Crossmatch 05/27/18 05/28/18 05/28/18 Unknown 04:32 05:00 WBC RBC Hgb Hct MCV MCHC RDW Plt Count Lymph % (Auto) [place] % (Auto) Lymph # [place] # Seg Neutrophils % Seg Neuts % (Manual) Lymphocytes % (Manual) Seg Neutrophils # Seg Neutrophils # Man Lymphocytes # (Manual) PT INR APTT POC ABG pH POC ABG pCO2 POC ABG pO2 134 H Sodium Potassium Chloride Carbon Dioxide BUN 69 H Creatinine 4.4 H Glucose 118 H POC Glucose Lactic Acid Calcium 8.0 L D Phosphorus 6.80 H D Magnesium Iron TIBC AST ALT Alkaline Phosphatase Lactate Dehydrogenase Total Creatine Kinase C-Reactive Protein Total Protein Albumin Prealbumin CA 19-9 Antigen Folate PTH Intact Urine WBC (Auto) 120.0 H Urine Creatinine Urine Chloride Urine Total Protein Fluid Glucose Fluid Total Protein Vancomycin Trough Miscellaneous Test Crossmatch 05/28/18 05/28/18 05/28/18 05:00 05:27 13:04 WBC 26.5 H RBC 2.69 L Hgb 7.7 L Hct 23.6 L MCV MCHC RDW Plt Count Lymph % (Auto) [place] % (Auto) Lymph # [place] # Seg Neutrophils % Seg Neuts % (Manual) 96.0 H Lymphocytes % (Manual) 0 L Seg Neutrophils # Seg Neutrophils # Man 25.4 H Lymphocytes # (Manual) 0.0 L PT INR APTT POC ABG pH POC ABG pCO2 POC ABG pO2 Sodium Potassium Chloride Carbon Dioxide BUN Creatinine Glucose POC Glucose 128 H 155 H Lactic Acid Calcium Phosphorus Magnesium Iron TIBC AST ALT Alkaline Phosphatase Lactate Dehydrogenase Total Creatine Kinase C-Reactive Protein Total Protein Albumin Prealbumin CA 19-9 Antigen Folate PTH Intact Urine WBC (Auto) Urine Creatinine Urine Chloride Urine Total Protein Fluid Glucose Fluid Total Protein Vancomycin Trough Miscellaneous Test Crossmatch 05/28/18 05/29/18 05/29/18 17:56 03:35 04:00 WBC RBC Hgb Hct MCV MCHC RDW Plt Count Lymph % (Auto) [place] % (Auto) Lymph # [place] # Seg Neutrophils % Seg Neuts % (Manual) Lymphocytes % (Manual) Seg Neutrophils # Seg Neutrophils # Man Lymphocytes # (Manual) PT INR APTT POC ABG pH 7.471 H POC ABG pCO2 POC ABG pO2 78 L Sodium Potassium Chloride Carbon Dioxide BUN 50 H Creatinine 3.9 H Glucose POC Glucose 110 H Lactic Acid Calcium 7.7 L Phosphorus Magnesium 1.50 L Iron TIBC AST 218 H ALT 204 H Alkaline Phosphatase Lactate Dehydrogenase Total Creatine Kinase C-Reactive Protein Total Protein 5.4 L Albumin 1.6 L Prealbumin CA 19-9 Antigen Folate PTH Intact Urine WBC (Auto) Urine Creatinine Urine Chloride Urine Total Protein Fluid Glucose Fluid Total Protein Vancomycin Trough Miscellaneous Test Crossmatch 05/29/18 05/29/18 05/30/18 11:51 23:56 04:54 WBC RBC Hgb Hct MCV MCHC RDW Plt Count Lymph % (Auto) [place] % (Auto) Lymph # [place] # Seg Neutrophils % Seg Neuts % (Manual) Lymphocytes % (Manual) Seg Neutrophils # Seg Neutrophils # Man Lymphocytes # (Manual) PT INR APTT POC ABG pH POC ABG pCO2 POC ABG pO2 Sodium Potassium Chloride Carbon Dioxide BUN Creatinine Glucose POC Glucose 131 H 119 H 115 H Lactic Acid Calcium Phosphorus Magnesium Iron TIBC AST ALT Alkaline Phosphatase Lactate Dehydrogenase Total Creatine Kinase C-Reactive Protein Total Protein Albumin Prealbumin CA 19-9 Antigen Folate PTH Intact Urine WBC (Auto) Urine Creatinine Urine Chloride Urine Total Protein Fluid Glucose Fluid Total Protein Vancomycin Trough Miscellaneous Test Crossmatch 05/30/18 05/30/18 05/30/18 05:07 05:15 05:15 WBC 16.2 H RBC 2.53 L Hgb 7.4 L Hct 21.9 L MCV MCHC RDW Plt Count Lymph % (Auto) [place] % (Auto) Lymph # [place] # Seg Neutrophils % Seg Neuts % (Manual) Lymphocytes % (Manual) Seg Neutrophils # Seg Neutrophils # Man Lymphocytes # (Manual) PT INR APTT POC ABG pH POC ABG pCO2 34.5 L POC ABG pO2 133 H Sodium 135 L Potassium Chloride 97.5 L Carbon Dioxide BUN 69 H Creatinine 5.4 H Glucose 105 H POC Glucose Lactic Acid Calcium 7.5 L Phosphorus 5.30 H D Magnesium Iron TIBC AST ALT Alkaline Phosphatase Lactate Dehydrogenase Total Creatine Kinase C-Reactive Protein Total Protein Albumin Prealbumin CA 19-9 Antigen Folate PTH Intact Urine WBC (Auto) Urine Creatinine Urine Chloride Urine Total Protein Fluid Glucose Fluid Total Protein Vancomycin Trough Miscellaneous Test Crossmatch 05/30/18 05/30/18 05/31/18 12:13 17:10 04:50 WBC 18.7 H RBC 2.86 L Hgb 8.2 L Hct 24.8 L MCV MCHC RDW Plt Count Lymph % (Auto) [place] % (Auto) Lymph # [place] # Seg Neutrophils % Seg Neuts % (Manual) 91.0 H Lymphocytes % (Manual) 2.0 L Seg Neutrophils # Seg Neutrophils # Man 17.0 H Lymphocytes # (Manual) 0.4 L PT INR APTT POC ABG pH POC ABG pCO2 POC ABG pO2 Sodium Potassium Chloride Carbon Dioxide BUN Creatinine Glucose POC Glucose 132 H 122 H Lactic Acid Calcium Phosphorus Magnesium Iron TIBC AST ALT Alkaline Phosphatase Lactate Dehydrogenase Total Creatine Kinase C-Reactive Protein Total Protein Albumin Prealbumin CA 19-9 Antigen Folate PTH Intact Urine WBC (Auto) Urine Creatinine Urine Chloride Urine Total Protein Fluid Glucose Fluid Total Protein Vancomycin Trough Miscellaneous Test Crossmatch 05/31/18 05/31/18 05/31/18 04:50 05:45 11:37 WBC RBC Hgb Hct MCV MCHC RDW Plt Count Lymph % (Auto) [place] % (Auto) Lymph # [place] # Seg Neutrophils % Seg Neuts % (Manual) Lymphocytes % (Manual) Seg Neutrophils # Seg Neutrophils # Man Lymphocytes # (Manual) PT INR APTT POC ABG pH POC ABG pCO2 POC ABG pO2 Sodium 132 L Potassium Chloride 92.4 L Carbon Dioxide BUN 77 H Creatinine 5.9 H Glucose POC Glucose 111 H 136 H Lactic Acid Calcium 7.3 L Phosphorus 6.40 H D Magnesium Iron TIBC AST ALT Alkaline Phosphatase Lactate Dehydrogenase Total Creatine Kinase C-Reactive Protein Total Protein Albumin Prealbumin CA 19-9 Antigen Folate PTH Intact Urine WBC (Auto) Urine Creatinine Urine Chloride Urine Total Protein Fluid Glucose Fluid Total Protein Vancomycin Trough Miscellaneous Test Crossmatch 05/31/18 06/01/18 06/01/18 17:52 00:09 04:00 WBC RBC Hgb Hct MCV MCHC RDW Plt Count Lymph % (Auto) [place] % (Auto) Lymph # [place] # Seg Neutrophils % Seg Neuts % (Manual) Lymphocytes % (Manual) Seg Neutrophils # Seg Neutrophils # Man Lymphocytes # (Manual) PT INR APTT POC ABG pH POC ABG pCO2 POC ABG pO2 Sodium Potassium Chloride 97.5 L Carbon Dioxide BUN 49 H Creatinine 4.2 H Glucose 104 H POC Glucose 115 H 114 H Lactic Acid Calcium 7.3 L Phosphorus 4.70 H D Magnesium Iron TIBC AST ALT Alkaline Phosphatase Lactate Dehydrogenase Total Creatine Kinase C-Reactive Protein Total Protein Albumin Prealbumin CA 19-9 Antigen Folate PTH Intact Urine WBC (Auto) Urine Creatinine Urine Chloride Urine Total Protein Fluid Glucose Fluid Total Protein Vancomycin Trough Miscellaneous Test Crossmatch 06/01/18 06/01/18 06/02/18 11:10 17:56 00:15 WBC RBC Hgb Hct MCV MCHC RDW Plt Count Lymph % (Auto) [place] % (Auto) Lymph # [place] # Seg Neutrophils % Seg Neuts % (Manual) Lymphocytes % (Manual) Seg Neutrophils # Seg Neutrophils # Man Lymphocytes # (Manual) PT INR APTT POC ABG pH POC ABG pCO2 POC ABG pO2 Sodium Potassium Chloride Carbon Dioxide BUN Creatinine Glucose POC Glucose 123 H 126 H 135 H Lactic Acid Calcium Phosphorus Magnesium Iron TIBC AST ALT Alkaline Phosphatase Lactate Dehydrogenase Total Creatine Kinase C-Reactive Protein Total Protein Albumin Prealbumin CA 19-9 Antigen Folate PTH Intact Urine WBC (Auto) Urine Creatinine Urine Chloride Urine Total Protein Fluid Glucose Fluid Total Protein Vancomycin Trough Miscellaneous Test Crossmatch 06/02/18 06/02/18 06/02/18 05:23 12:42 13:05 WBC RBC Hgb Hct MCV MCHC RDW Plt Count Lymph % (Auto) [place] % (Auto) Lymph # [place] # Seg Neutrophils % Seg Neuts % (Manual) Lymphocytes % (Manual) Seg Neutrophils # Seg Neutrophils # Man Lymphocytes # (Manual) PT 17.1 H INR 1.34 H APTT POC ABG pH POC ABG pCO2 POC ABG pO2 Sodium Potassium Chloride Carbon Dioxide BUN Creatinine Glucose POC Glucose 135 H 142 H Lactic Acid Calcium Phosphorus Magnesium Iron TIBC AST ALT Alkaline Phosphatase Lactate Dehydrogenase Total Creatine Kinase C-Reactive Protein Total Protein Albumin Prealbumin CA 19-9 Antigen Folate PTH Intact Urine WBC (Auto) Urine Creatinine Urine Chloride Urine Total Protein Fluid Glucose Fluid Total Protein Vancomycin Trough Miscellaneous Test Crossmatch 06/02/18 06/02/18 06/03/18 Unknown Unknown 00:54 WBC 20.8 H RBC 2.67 L Hgb 7.7 L Hct 23.0 L MCV MCHC RDW Plt Count 500 H Lymph % (Auto) [place] % (Auto) Lymph # [place] # Seg Neutrophils % Seg Neuts % (Manual) Lymphocytes % (Manual) Seg Neutrophils # Seg Neutrophils # Man Lymphocytes # (Manual) PT INR APTT POC ABG pH POC ABG pCO2 POC ABG pO2 Sodium 136 L Potassium 3.5 L Chloride 96.9 L Carbon Dioxide BUN 62 H Creatinine 4.9 H Glucose 133 H POC Glucose 125 H Lactic Acid Calcium 7.2 L Phosphorus 5.00 H Magnesium Iron TIBC AST 46 H ALT 66 H Alkaline Phosphatase Lactate Dehydrogenase Total Creatine Kinase C-Reactive Protein Total Protein 5.7 L Albumin 1.5 L Prealbumin CA 19-9 Antigen Folate PTH Intact Urine WBC (Auto) Urine Creatinine Urine Chloride Urine Total Protein Fluid Glucose Fluid Total Protein Vancomycin Trough Miscellaneous Test Crossmatch 06/03/18 06/03/18 06/03/18 03:31 09:18 09:18 WBC RBC Hgb Hct MCV MCHC RDW Plt Count Lymph % (Auto) [place] % (Auto) Lymph # [place] # Seg Neutrophils % Seg Neuts % (Manual) Lymphocytes % (Manual) Seg Neutrophils # Seg Neutrophils # Man Lymphocytes # (Manual) PT 17.1 H INR 1.34 H APTT POC ABG pH POC ABG pCO2 POC ABG pO2 Sodium 136 L Potassium Chloride Carbon Dioxide BUN 41 H Creatinine 3.4 H Glucose 129 H POC Glucose Lactic Acid Calcium 7.4 L Phosphorus Magnesium Iron TIBC AST ALT Alkaline Phosphatase Lactate Dehydrogenase Total Creatine Kinase C-Reactive Protein 11.10 H Total Protein Albumin Prealbumin CA 19-9 Antigen Folate PTH Intact Urine WBC (Auto) Urine Creatinine Urine Chloride Urine Total Protein Fluid Glucose Fluid Total Protein Vancomycin Trough Miscellaneous Test Crossmatch 06/03/18 06/03/18 06/03/18 16:07 21:18 Unknown WBC RBC Hgb Hct MCV MCHC RDW Plt Count Lymph % (Auto) [place] % (Auto) Lymph # [place] # Seg Neutrophils % Seg Neuts % (Manual) Lymphocytes % (Manual) Seg Neutrophils # Seg Neutrophils # Man Lymphocytes # (Manual) PT INR APTT POC ABG pH POC ABG pCO2 POC ABG pO2 Sodium Potassium Chloride Carbon Dioxide BUN Creatinine Glucose POC Glucose 144 H 128 H Lactic Acid Calcium Phosphorus Magnesium Iron TIBC AST ALT Alkaline Phosphatase Lactate Dehydrogenase Total Creatine Kinase C-Reactive Protein Total Protein Albumin Prealbumin CA 19-9 Antigen Folate PTH Intact Urine WBC (Auto) Urine Creatinine Urine Chloride Urine Total Protein Fluid Glucose 10 L Fluid Total Protein 3.7 L Vancomycin Trough Miscellaneous Test Crossmatch 06/04/18 06/04/18 06/04/18 04:31 06:14 11:38 WBC RBC Hgb Hct MCV MCHC RDW Plt Count Lymph % (Auto) [place] % (Auto) Lymph # [place] # Seg Neutrophils % Seg Neuts % (Manual) Lymphocytes % (Manual) Seg Neutrophils # Seg Neutrophils # Man Lymphocytes # (Manual) PT INR APTT POC ABG pH POC ABG pCO2 POC ABG pO2 Sodium Potassium Chloride Carbon Dioxide BUN 55 H Creatinine 3.7 H Glucose 151 H POC Glucose 145 H 129 H Lactic Acid Calcium 7.8 L Phosphorus 4.60 H Magnesium Iron TIBC AST ALT Alkaline Phosphatase Lactate Dehydrogenase Total Creatine Kinase C-Reactive Protein Total Protein Albumin Prealbumin CA 19-9 Antigen Folate PTH Intact Urine WBC (Auto) Urine Creatinine Urine Chloride Urine Total Protein Fluid Glucose Fluid Total Protein Vancomycin Trough Miscellaneous Test Crossmatch 06/04/18 06/04/18 06/04/18 17:09 20:00 21:29 WBC RBC Hgb 8.8 L Hct 27.3 L MCV MCHC RDW Plt Count Lymph % (Auto) [place] % (Auto) Lymph # [place] # Seg Neutrophils % Seg Neuts % (Manual) Lymphocytes % (Manual) Seg Neutrophils # Seg Neutrophils # Man Lymphocytes # (Manual) PT INR APTT POC ABG pH POC ABG pCO2 POC ABG pO2 Sodium Potassium Chloride Carbon Dioxide BUN Creatinine Glucose POC Glucose 142 H 130 H Lactic Acid Calcium Phosphorus Magnesium Iron TIBC AST ALT Alkaline Phosphatase Lactate Dehydrogenase Total Creatine Kinase C-Reactive Protein Total Protein Albumin Prealbumin CA 19-9 Antigen Folate PTH Intact Urine WBC (Auto) Urine Creatinine Urine Chloride Urine Total Protein Fluid Glucose Fluid Total Protein Vancomycin Trough Miscellaneous Test Crossmatch 06/05/18 06/05/18 06/05/18 06:30 07:00 07:00 WBC 19.3 H RBC 2.94 L Hgb 8.3 L Hct 25.6 L MCV MCHC RDW 15.7 H Plt Count 568 H Lymph % (Auto) 4.7 L [place] % (Auto) Lymph # 0.9 L [place] # 1.1 H Seg Neutrophils % 88.9 H Seg Neuts % (Manual) Lymphocytes % (Manual) Seg Neutrophils # 17.2 H Seg Neutrophils # Man Lymphocytes # (Manual) PT INR APTT POC ABG pH POC ABG pCO2 POC ABG pO2 Sodium Potassium 3.4 L D Chloride Carbon Dioxide BUN 67 H Creatinine 3.6 H Glucose 145 H POC Glucose 153 H Lactic Acid Calcium 7.9 L Phosphorus 4.60 H Magnesium Iron TIBC AST ALT Alkaline Phosphatase Lactate Dehydrogenase Total Creatine Kinase C-Reactive Protein Total Protein Albumin Prealbumin CA 19-9 Antigen Folate PTH Intact Urine WBC (Auto) Urine Creatinine Urine Chloride Urine Total Protein Fluid Glucose Fluid Total Protein Vancomycin Trough Miscellaneous Test Crossmatch 06/05/18 06/05/18 06/06/18 12:10 16:01 06:39 WBC RBC Hgb Hct MCV MCHC RDW Plt Count Lymph % (Auto) [place] % (Auto) Lymph # [place] # Seg Neutrophils % Seg Neuts % (Manual) Lymphocytes % (Manual) Seg Neutrophils # Seg Neutrophils # Man Lymphocytes # (Manual) PT INR APTT POC ABG pH POC ABG pCO2 POC ABG pO2 Sodium Potassium Chloride Carbon Dioxide BUN Creatinine Glucose POC Glucose 150 H 129 H 131 H Lactic Acid Calcium Phosphorus Magnesium Iron TIBC AST ALT Alkaline Phosphatase Lactate Dehydrogenase Total Creatine Kinase C-Reactive Protein Total Protein Albumin Prealbumin CA 19-9 Antigen Folate PTH Intact Urine WBC (Auto) Urine Creatinine Urine Chloride Urine Total Protein Fluid Glucose Fluid Total Protein Vancomycin Trough Miscellaneous Test Crossmatch 06/06/18 06/06/18 06/06/18 07:14 07:14 07:14 WBC 16.5 H RBC 2.84 L Hgb 8.1 L Hct 25.2 L MCV MCHC RDW 16.4 H Plt Count 526 H Lymph % (Auto) 6.5 L [place] % (Auto) Lymph # 1.1 L [place] # 1.2 H Seg Neutrophils % 85.3 H Seg Neuts % (Manual) Lymphocytes % (Manual) Seg Neutrophils # 14.1 H Seg Neutrophils # Man Lymphocytes # (Manual) PT INR APTT POC ABG pH POC ABG pCO2 POC ABG pO2 Sodium Potassium Chloride 109.1 H Carbon Dioxide 21 L BUN 76 H Creatinine 3.5 H Glucose 111 H POC Glucose Lactic Acid Calcium 8.1 L Phosphorus Magnesium Iron TIBC AST ALT Alkaline Phosphatase Lactate Dehydrogenase Total Creatine Kinase C-Reactive Protein 4.70 H Total Protein Albumin Prealbumin CA 19-9 Antigen Folate PTH Intact Urine WBC (Auto) Urine Creatinine Urine Chloride Urine Total Protein Fluid Glucose Fluid Total Protein Vancomycin Trough Miscellaneous Test Crossmatch 06/06/18 06/06/18 06/06/18 11:15 18:00 23:58 WBC RBC Hgb Hct MCV MCHC RDW Plt Count Lymph % (Auto) [place] % (Auto) Lymph # [place] # Seg Neutrophils % Seg Neuts % (Manual) Lymphocytes % (Manual) Seg Neutrophils # Seg Neutrophils # Man Lymphocytes # (Manual) PT INR APTT POC ABG pH POC ABG pCO2 POC ABG pO2 Sodium Potassium Chloride Carbon Dioxide BUN Creatinine Glucose POC Glucose 127 H 130 H 114 H Lactic Acid Calcium Phosphorus Magnesium Iron TIBC AST ALT Alkaline Phosphatase Lactate Dehydrogenase Total Creatine Kinase C-Reactive Protein Total Protein Albumin Prealbumin CA 19-9 Antigen Folate PTH Intact Urine WBC (Auto) Urine Creatinine Urine Chloride Urine Total Protein Fluid Glucose Fluid Total Protein Vancomycin Trough Miscellaneous Test Crossmatch 06/07/18 06/07/18 06/07/18 05:45 05:45 05:54 WBC 15.5 H RBC 2.60 L Hgb 7.4 L Hct 23.1 L MCV MCHC RDW 16.5 H Plt Count 506 H Lymph % (Auto) 5.3 L [place] % (Auto) Lymph # 0.8 L [place] # 1.0 H Seg Neutrophils % 86.6 H Seg Neuts % (Manual) Lymphocytes % (Manual) Seg Neutrophils # 13.4 H Seg Neutrophils # Man Lymphocytes # (Manual) PT INR APTT POC ABG pH POC ABG pCO2 POC ABG pO2 Sodium Potassium Chloride 108.4 H Carbon Dioxide BUN 84 H Creatinine 3.5 H Glucose 119 H POC Glucose 114 H Lactic Acid Calcium 8.1 L Phosphorus 5.10 H Magnesium Iron TIBC AST ALT Alkaline Phosphatase Lactate Dehydrogenase Total Creatine Kinase C-Reactive Protein Total Protein Albumin Prealbumin CA 19-9 Antigen Folate PTH Intact Urine WBC (Auto) Urine Creatinine Urine Chloride Urine Total Protein Fluid Glucose Fluid Total Protein Vancomycin Trough Miscellaneous Test Crossmatch 06/07/18 06/08/18 06/08/18 12:15 05:05 05:24 WBC RBC Hgb Hct MCV MCHC RDW Plt Count Lymph % (Auto) [place] % (Auto) Lymph # [place] # Seg Neutrophils % Seg Neuts % (Manual) Lymphocytes % (Manual) Seg Neutrophils # Seg Neutrophils # Man Lymphocytes # (Manual) PT INR APTT POC ABG pH POC ABG pCO2 POC ABG pO2 Sodium 148 H Potassium Chloride 112.4 H Carbon Dioxide BUN 89 H Creatinine 3.4 H Glucose 120 H POC Glucose 148 H 115 H Lactic Acid Calcium 7.9 L Phosphorus Magnesium Iron TIBC AST ALT Alkaline Phosphatase Lactate Dehydrogenase Total Creatine Kinase C-Reactive Protein Total Protein Albumin Prealbumin CA 19-9 Antigen Folate PTH Intact Urine WBC (Auto) Urine Creatinine Urine Chloride Urine Total Protein Fluid Glucose Fluid Total Protein Vancomycin Trough Miscellaneous Test Crossmatch 06/08/18 06/08/18 06/08/18 21:36 21:43 21:43 WBC RBC 2.98 L Hgb 8.8 L Hct 26.6 L MCV MCHC RDW 16.7 H Plt Count 463 H Lymph % (Auto) 7.9 L [place] % (Auto) Lymph # 0.8 L [place] # Seg Neutrophils % 84.8 H Seg Neuts % (Manual) Lymphocytes % (Manual) Seg Neutrophils # 8.6 H Seg Neutrophils # Man Lymphocytes # (Manual) PT INR APTT POC ABG pH POC ABG pCO2 POC ABG pO2 Sodium Potassium Chloride Carbon Dioxide BUN Creatinine Glucose POC Glucose Lactic Acid Calcium Phosphorus Magnesium Iron TIBC AST ALT Alkaline Phosphatase Lactate Dehydrogenase 297 H Total Creatine Kinase C-Reactive Protein Total Protein Albumin Prealbumin CA 19-9 Antigen 57 H Folate PTH Intact Urine WBC (Auto) Urine Creatinine Urine Chloride Urine Total Protein Fluid Glucose Fluid Total Protein Vancomycin Trough Miscellaneous Test Crossmatch 06/09/18 06/09/18 06/09/18 00:05 05:34 05:50 WBC RBC Hgb Hct MCV MCHC RDW Plt Count Lymph % (Auto) [place] % (Auto) Lymph # [place] # Seg Neutrophils % Seg Neuts % (Manual) Lymphocytes % (Manual) Seg Neutrophils # Seg Neutrophils # Man Lymphocytes # (Manual) PT INR APTT POC ABG pH POC ABG pCO2 POC ABG pO2 Sodium 153 H Potassium Chloride 117.3 H Carbon Dioxide BUN 84 H Creatinine 3.2 H Glucose 117 H POC Glucose 140 H 146 H Lactic Acid Calcium 7.9 L Phosphorus Magnesium Iron TIBC AST ALT Alkaline Phosphatase Lactate Dehydrogenase Total Creatine Kinase C-Reactive Protein Total Protein Albumin Prealbumin CA 19-9 Antigen Folate PTH Intact Urine WBC (Auto) Urine Creatinine Urine Chloride Urine Total Protein Fluid Glucose Fluid Total Protein Vancomycin Trough Miscellaneous Test Crossmatch 06/09/18 06/09/18 06/09/18 05:50 07:37 10:34 WBC RBC 2.32 L Hgb 6.8 L Hct 20.7 L MCV MCHC RDW 16.7 H Plt Count Lymph % (Auto) [place] % (Auto) Lymph # [place] # Seg Neutrophils % Seg Neuts % (Manual) Lymphocytes % (Manual) Seg Neutrophils # Seg Neutrophils # Man Lymphocytes # (Manual) PT INR APTT POC ABG pH POC ABG pCO2 POC ABG pO2 Sodium 149 H Potassium Chloride 114.6 H Carbon Dioxide BUN 84 H Creatinine 3.1 H Glucose 137 H POC Glucose Lactic Acid Calcium 7.7 L Phosphorus Magnesium Iron TIBC AST ALT Alkaline Phosphatase Lactate Dehydrogenase Total Creatine Kinase C-Reactive Protein Total Protein Albumin Prealbumin CA 19-9 Antigen Folate PTH Intact Urine WBC (Auto) Urine Creatinine Urine Chloride Urine Total Protein Fluid Glucose Fluid Total Protein Vancomycin Trough Miscellaneous Test Flexitest 1 H Crossmatch 06/09/18 06/09/18 06/09/18 10:41 11:56 13:24 WBC RBC 2.43 L Hgb 7.2 L Hct 21.6 L MCV MCHC RDW 16.8 H Plt Count Lymph % (Auto) [place] % (Auto) Lymph # [place] # Seg Neutrophils % Seg Neuts % (Manual) Lymphocytes % (Manual) Seg Neutrophils # Seg Neutrophils # Man Lymphocytes # (Manual) PT INR APTT POC ABG pH POC ABG pCO2 POC ABG pO2 Sodium Potassium Chloride Carbon Dioxide BUN Creatinine Glucose POC Glucose 141 H Lactic Acid Calcium Phosphorus Magnesium Iron TIBC AST ALT Alkaline Phosphatase Lactate Dehydrogenase Total Creatine Kinase C-Reactive Protein Total Protein Albumin Prealbumin CA 19-9 Antigen Folate PTH Intact Urine WBC (Auto) Urine Creatinine Urine Chloride Urine Total Protein Fluid Glucose Fluid Total Protein Vancomycin Trough Miscellaneous Test Crossmatch See Detail 06/09/18 06/09/18 06/10/18 18:18 23:13 05:26 WBC RBC Hgb Hct MCV MCHC RDW Plt Count Lymph % (Auto) [place] % (Auto) Lymph # [place] # Seg Neutrophils % Seg Neuts % (Manual) Lymphocytes % (Manual) Seg Neutrophils # Seg Neutrophils # Man Lymphocytes # (Manual) PT INR APTT POC ABG pH POC ABG pCO2 POC ABG pO2 Sodium 148 H Potassium Chloride 114.7 H Carbon Dioxide 21 L BUN 79 H Creatinine 3.2 H Glucose 121 H POC Glucose 156 H 163 H Lactic Acid Calcium 7.8 L Phosphorus Magnesium 1.60 L Iron TIBC AST ALT Alkaline Phosphatase Lactate Dehydrogenase Total Creatine Kinase C-Reactive Protein Total Protein Albumin Prealbumin CA 19-9 Antigen Folate PTH Intact Urine WBC (Auto) Urine Creatinine Urine Chloride Urine Total Protein Fluid Glucose Fluid Total Protein Vancomycin Trough Miscellaneous Test Crossmatch 06/10/18 06/10/18 06/10/18 05:26 05:31 17:15 WBC 11.1 H RBC 3.07 L Hgb 9.1 L Hct 27.6 L D MCV MCHC RDW 17.4 H Plt Count Lymph % (Auto) [place] % (Auto) Lymph # [place] # Seg Neutrophils % Seg Neuts % (Manual) Lymphocytes % (Manual) Seg Neutrophils # Seg Neutrophils # Man Lymphocytes # (Manual) PT INR APTT POC ABG pH POC ABG pCO2 POC ABG pO2 Sodium Potassium Chloride Carbon Dioxide BUN Creatinine Glucose POC Glucose 128 H Lactic Acid Calcium Phosphorus Magnesium Iron TIBC AST ALT Alkaline Phosphatase Lactate Dehydrogenase Total Creatine Kinase C-Reactive Protein 3.60 H Total Protein Albumin Prealbumin CA 19-9 Antigen Folate PTH Intact Urine WBC (Auto) Urine Creatinine Urine Chloride Urine Total Protein Fluid Glucose Fluid Total Protein Vancomycin Trough Miscellaneous Test Crossmatch 06/11/18 06/11/18 06/11/18 01:13 05:41 05:41 WBC 14.6 H RBC 3.40 L Hgb 9.8 L Hct 30.7 L MCV MCHC RDW 18.1 H Plt Count Lymph % (Auto) [place] % (Auto) Lymph # [place] # Seg Neutrophils % Seg Neuts % (Manual) Lymphocytes % (Manual) Seg Neutrophils # Seg Neutrophils # Man Lymphocytes # (Manual) PT INR APTT POC ABG pH POC ABG pCO2 POC ABG pO2 Sodium Potassium Chloride 110.8 H Carbon Dioxide 18 L BUN 77 H Creatinine 3.0 H Glucose 116 H POC Glucose 126 H Lactic Acid Calcium 7.9 L Phosphorus Magnesium Iron TIBC AST ALT Alkaline Phosphatase Lactate Dehydrogenase Total Creatine Kinase C-Reactive Protein Total Protein Albumin Prealbumin CA 19-9 Antigen Folate PTH Intact Urine WBC (Auto) Urine Creatinine Urine Chloride Urine Total Protein Fluid Glucose Fluid Total Protein Vancomycin Trough Miscellaneous Test Crossmatch 06/11/18 06/11/18 06/11/18 06:20 07:41 07:41 WBC RBC Hgb Hct MCV MCHC RDW Plt Count Lymph % (Auto) [place] % (Auto) Lymph # [place] # Seg Neutrophils % Seg Neuts % (Manual) Lymphocytes % (Manual) Seg Neutrophils # Seg Neutrophils # Man Lymphocytes # (Manual) PT INR APTT POC ABG pH POC ABG pCO2 POC ABG pO2 Sodium Potassium Chloride Carbon Dioxide BUN Creatinine Glucose POC Glucose 136 H Lactic Acid Calcium Phosphorus Magnesium Iron TIBC AST ALT Alkaline Phosphatase Lactate Dehydrogenase Total Creatine Kinase C-Reactive Protein Total Protein Albumin Prealbumin CA 19-9 Antigen Folate PTH Intact Urine WBC (Auto) 10.0 H Urine Creatinine 41.2 H Urine Chloride 49.2 L Urine Total Protein 142 H Fluid Glucose Fluid Total Protein Vancomycin Trough Miscellaneous Test Crossmatch 06/11/18 06/12/18 06/12/18 18:35 00:34 04:12 WBC RBC 3.18 L Hgb 9.5 L Hct 28.7 L MCV MCHC RDW 18.5 H Plt Count Lymph % (Auto) 8.1 L [place] % (Auto) Lymph # 0.9 L [place] # Seg Neutrophils % 84.6 H Seg Neuts % (Manual) Lymphocytes % (Manual) Seg Neutrophils # 9.1 H Seg Neutrophils # Man Lymphocytes # (Manual) PT INR APTT POC ABG pH POC ABG pCO2 POC ABG pO2 Sodium Potassium Chloride Carbon Dioxide BUN Creatinine Glucose POC Glucose 125 H 129 H Lactic Acid Calcium Phosphorus Magnesium Iron TIBC AST ALT Alkaline Phosphatase Lactate Dehydrogenase Total Creatine Kinase C-Reactive Protein Total Protein Albumin Prealbumin CA 19-9 Antigen Folate PTH Intact Urine WBC (Auto) Urine Creatinine Urine Chloride Urine Total Protein Fluid Glucose Fluid Total Protein Vancomycin Trough Miscellaneous Test Crossmatch 06/12/18 06/12/18 06/12/18 04:12 06:30 11:43 WBC RBC Hgb Hct MCV MCHC RDW Plt Count Lymph % (Auto) [place] % (Auto) Lymph # [place] # Seg Neutrophils % Seg Neuts % (Manual) Lymphocytes % (Manual) Seg Neutrophils # Seg Neutrophils # Man Lymphocytes # (Manual) PT INR APTT POC ABG pH POC ABG pCO2 POC ABG pO2 Sodium Potassium Chloride 108.5 H Carbon Dioxide 21 L BUN 72 H Creatinine 3.0 H Glucose 122 H POC Glucose 129 H 126 H Lactic Acid Calcium 7.8 L Phosphorus Magnesium Iron TIBC AST 45 H ALT Alkaline Phosphatase 200 H Lactate Dehydrogenase Total Creatine Kinase 34 L C-Reactive Protein Total Protein Albumin 1.7 L Prealbumin CA 19-9 Antigen Folate PTH Intact Urine WBC (Auto) Urine Creatinine Urine Chloride Urine Total Protein Fluid Glucose Fluid Total Protein Vancomycin Trough Miscellaneous Test Crossmatch 06/12/18 06/12/18 06/13/18 16:00 23:56 03:44 WBC RBC Hgb Hct MCV MCHC RDW Plt Count Lymph % (Auto) [place] % (Auto) Lymph # [place] # Seg Neutrophils % Seg Neuts % (Manual) Lymphocytes % (Manual) Seg Neutrophils # Seg Neutrophils # Man Lymphocytes # (Manual) PT INR APTT POC ABG pH POC ABG pCO2 POC ABG pO2 Sodium Potassium Chloride Carbon Dioxide BUN Creatinine Glucose POC Glucose 123 H 128 H 121 H Lactic Acid Calcium Phosphorus Magnesium Iron TIBC AST ALT Alkaline Phosphatase Lactate Dehydrogenase Total Creatine Kinase C-Reactive Protein Total Protein Albumin Prealbumin CA 19-9 Antigen Folate PTH Intact Urine WBC (Auto) Urine Creatinine Urine Chloride Urine Total Protein Fluid Glucose Fluid Total Protein Vancomycin Trough Miscellaneous Test Crossmatch 06/13/18 06/13/18 06/14/18 05:59 11:29 01:08 WBC RBC Hgb Hct MCV MCHC RDW Plt Count Lymph % (Auto) [place] % (Auto) Lymph # [place] # Seg Neutrophils % Seg Neuts % (Manual) Lymphocytes % (Manual) Seg Neutrophils # Seg Neutrophils # Man Lymphocytes # (Manual) PT INR APTT POC ABG pH POC ABG pCO2 POC ABG pO2 Sodium 134 L Potassium Chloride Carbon Dioxide 20 L BUN 69 H Creatinine 2.9 H Glucose 113 H POC Glucose 124 H 128 H Lactic Acid Calcium 7.8 L Phosphorus Magnesium Iron TIBC AST ALT Alkaline Phosphatase Lactate Dehydrogenase Total Creatine Kinase C-Reactive Protein Total Protein Albumin Prealbumin CA 19-9 Antigen Folate PTH Intact Urine WBC (Auto) Urine Creatinine Urine Chloride Urine Total Protein Fluid Glucose Fluid Total Protein Vancomycin Trough Miscellaneous Test Crossmatch 06/14/18 06/14/18 06/14/18 06:42 06:42 09:50 WBC 11.3 H RBC 3.02 L Hgb 8.8 L Hct 27.3 L MCV MCHC RDW 18.6 H Plt Count Lymph % (Auto) [place] % (Auto) Lymph # [place] # Seg Neutrophils % Seg Neuts % (Manual) Lymphocytes % (Manual) Seg Neutrophils # Seg Neutrophils # Man Lymphocytes # (Manual) PT 16.3 H INR 1.24 H APTT POC ABG pH POC ABG pCO2 POC ABG pO2 Sodium 132 L Potassium Chloride Carbon Dioxide 19 L BUN 71 H Creatinine 3.1 H Glucose POC Glucose Lactic Acid Calcium 7.8 L Phosphorus Magnesium Iron TIBC AST ALT Alkaline Phosphatase Lactate Dehydrogenase Total Creatine Kinase C-Reactive Protein Total Protein Albumin Prealbumin CA 19-9 Antigen Folate PTH Intact Urine WBC (Auto) Urine Creatinine Urine Chloride Urine Total Protein Fluid Glucose Fluid Total Protein Vancomycin Trough Miscellaneous Test Crossmatch 06/14/18 06/14/18 06/15/18 12:31 17:04 01:18 WBC RBC Hgb Hct MCV MCHC RDW Plt Count Lymph % (Auto) [place] % (Auto) Lymph # [place] # Seg Neutrophils % Seg Neuts % (Manual) Lymphocytes % (Manual) Seg Neutrophils # Seg Neutrophils # Man Lymphocytes # (Manual) PT INR APTT POC ABG pH POC ABG pCO2 POC ABG pO2 Sodium Potassium Chloride Carbon Dioxide BUN Creatinine Glucose POC Glucose 125 H 109 H 124 H Lactic Acid Calcium Phosphorus Magnesium Iron TIBC AST ALT Alkaline Phosphatase Lactate Dehydrogenase Total Creatine Kinase C-Reactive Protein Total Protein Albumin Prealbumin CA 19-9 Antigen Folate PTH Intact Urine WBC (Auto) Urine Creatinine Urine Chloride Urine Total Protein Fluid Glucose Fluid Total Protein Vancomycin Trough Miscellaneous Test Crossmatch 06/15/18 06/15/18 06/15/18 05:27 06:34 11:42 WBC RBC Hgb Hct MCV MCHC RDW Plt Count Lymph % (Auto) [place] % (Auto) Lymph # [place] # Seg Neutrophils % Seg Neuts % (Manual) Lymphocytes % (Manual) Seg Neutrophils # Seg Neutrophils # Man Lymphocytes # (Manual) PT INR APTT POC ABG pH POC ABG pCO2 POC ABG pO2 Sodium 134 L Potassium Chloride Carbon Dioxide 17 L BUN 77 H Creatinine 3.2 H Glucose 110 H POC Glucose 116 H 131 H Lactic Acid Calcium 8.1 L Phosphorus 6.20 H D Magnesium Iron TIBC AST ALT Alkaline Phosphatase Lactate Dehydrogenase Total Creatine Kinase C-Reactive Protein Total Protein Albumin Prealbumin CA 19-9 Antigen Folate PTH Intact Urine WBC (Auto) Urine Creatinine Urine Chloride Urine Total Protein Fluid Glucose Fluid Total Protein Vancomycin Trough Miscellaneous Test Crossmatch 06/16/18 06/16/18 06/16/18 00:57 05:10 06:07 WBC RBC Hgb Hct MCV MCHC RDW Plt Count Lymph % (Auto) [place] % (Auto) Lymph # [place] # Seg Neutrophils % Seg Neuts % (Manual) Lymphocytes % (Manual) Seg Neutrophils # Seg Neutrophils # Man Lymphocytes # (Manual) PT INR APTT POC ABG pH POC ABG pCO2 POC ABG pO2 Sodium 132 L Potassium Chloride Carbon Dioxide 19 L BUN 83 H Creatinine 3.2 H Glucose 113 H POC Glucose 137 H 109 H Lactic Acid Calcium 7.8 L Phosphorus 6.10 H Magnesium Iron TIBC AST ALT Alkaline Phosphatase Lactate Dehydrogenase Total Creatine Kinase C-Reactive Protein Total Protein Albumin Prealbumin CA 19-9 Antigen Folate PTH Intact Urine WBC (Auto) Urine Creatinine Urine Chloride Urine Total Protein Fluid Glucose Fluid Total Protein Vancomycin Trough Miscellaneous Test Crossmatch 06/16/18 06/16/18 06/17/18 11:51 15:46 00:02 WBC RBC Hgb Hct MCV MCHC RDW Plt Count Lymph % (Auto) [place] % (Auto) Lymph # [place] # Seg Neutrophils % Seg Neuts % (Manual) Lymphocytes % (Manual) Seg Neutrophils # Seg Neutrophils # Man Lymphocytes # (Manual) PT INR APTT POC ABG pH POC ABG pCO2 POC ABG pO2 Sodium Potassium Chloride Carbon Dioxide BUN Creatinine Glucose POC Glucose 126 H 127 H 107 H Lactic Acid Calcium Phosphorus Magnesium Iron TIBC AST ALT Alkaline Phosphatase Lactate Dehydrogenase Total Creatine Kinase C-Reactive Protein Total Protein Albumin Prealbumin CA 19-9 Antigen Folate PTH Intact Urine WBC (Auto) Urine Creatinine Urine Chloride Urine Total Protein Fluid Glucose Fluid Total Protein Vancomycin Trough Miscellaneous Test Crossmatch 06/17/18 06/17/18 06/17/18 05:52 11:46 16:58 WBC RBC Hgb Hct MCV MCHC RDW Plt Count Lymph % (Auto) [place] % (Auto) Lymph # [place] # Seg Neutrophils % Seg Neuts % (Manual) Lymphocytes % (Manual) Seg Neutrophils # Seg Neutrophils # Man Lymphocytes # (Manual) PT INR APTT POC ABG pH POC ABG pCO2 POC ABG pO2 Sodium 133 L Potassium Chloride Carbon Dioxide 17 L BUN 87 H Creatinine 3.2 H Glucose POC Glucose 129 H 140 H Lactic Acid Calcium 8.1 L Phosphorus 6.50 H Magnesium Iron TIBC AST ALT Alkaline Phosphatase Lactate Dehydrogenase Total Creatine Kinase C-Reactive Protein Total Protein Albumin Prealbumin 0.130 L CA 19-9 Antigen Folate PTH Intact Urine WBC (Auto) Urine Creatinine Urine Chloride Urine Total Protein Fluid Glucose Fluid Total Protein Vancomycin Trough Miscellaneous Test Crossmatch 06/18/18 06/18/18 06/18/18 04:04 04:04 14:15 WBC RBC 3.00 L Hgb 8.9 L Hct 26.5 L MCV MCHC RDW 17.8 H Plt Count 494 H Lymph % (Auto) 7.9 L [place] % (Auto) 9.3 H Lymph # 0.8 L [place] # 1.0 H Seg Neutrophils % 81.2 H Seg Neuts % (Manual) Lymphocytes % (Manual) Seg Neutrophils # 8.6 H Seg Neutrophils # Man Lymphocytes # (Manual) PT INR APTT POC ABG pH POC ABG pCO2 POC ABG pO2 Sodium 128 L Potassium Chloride Carbon Dioxide 18 L BUN 88 H Creatinine 3.1 H Glucose 129 H POC Glucose 143 H Lactic Acid Calcium 7.8 L Phosphorus 6.20 H Magnesium Iron TIBC AST ALT Alkaline Phosphatase Lactate Dehydrogenase Total Creatine Kinase C-Reactive Protein Total Protein Albumin Prealbumin CA 19-9 Antigen Folate PTH Intact Urine WBC (Auto) Urine Creatinine Urine Chloride Urine Total Protein Fluid Glucose Fluid Total Protein Vancomycin Trough Miscellaneous Test Crossmatch 06/18/18 06/19/18 06/19/18 17:54 01:45 06:20 WBC RBC Hgb Hct MCV MCHC RDW Plt Count Lymph % (Auto) [place] % (Auto) Lymph # [place] # Seg Neutrophils % Seg Neuts % (Manual) Lymphocytes % (Manual) Seg Neutrophils # Seg Neutrophils # Man Lymphocytes # (Manual) PT INR APTT POC ABG pH POC ABG pCO2 POC ABG pO2 Sodium Potassium Chloride 93.9 L Carbon Dioxide BUN 78 H Creatinine 2.8 H Glucose POC Glucose 138 H 141 H Lactic Acid Calcium 7.1 L Phosphorus 6.40 H Magnesium Iron TIBC AST ALT Alkaline Phosphatase Lactate Dehydrogenase Total Creatine Kinase C-Reactive Protein Total Protein Albumin Prealbumin CA 19-9 Antigen Folate PTH Intact Urine WBC (Auto) Urine Creatinine Urine Chloride Urine Total Protein Fluid Glucose Fluid Total Protein Vancomycin Trough Miscellaneous Test Crossmatch 06/19/18 06/19/18 06/19/18 06:49 07:59 16:32 WBC RBC Hgb Hct MCV MCHC RDW Plt Count Lymph % (Auto) [place] % (Auto) Lymph # [place] # Seg Neutrophils % Seg Neuts % (Manual) Lymphocytes % (Manual) Seg Neutrophils # Seg Neutrophils # Man Lymphocytes # (Manual) PT INR APTT POC ABG pH POC ABG pCO2 POC ABG pO2 Sodium Potassium Chloride Carbon Dioxide BUN 80 H Creatinine 2.9 H Glucose 123 H POC Glucose 130 H 134 H Lactic Acid Calcium 7.7 L Phosphorus Magnesium Iron TIBC AST ALT Alkaline Phosphatase Lactate Dehydrogenase Total Creatine Kinase C-Reactive Protein Total Protein Albumin Prealbumin CA 19-9 Antigen Folate PTH Intact Urine WBC (Auto) Urine Creatinine Urine Chloride Urine Total Protein Fluid Glucose Fluid Total Protein Vancomycin Trough Miscellaneous Test Crossmatch 06/20/18 06/20/18 06/20/18 00:11 05:55 05:55 WBC RBC 2.73 L Hgb 8.0 L Hct 24.2 L MCV MCHC RDW 17.4 H Plt Count 512 H Lymph % (Auto) 12.3 L [place] % (Auto) 11.3 H Lymph # 1.1 L [place] # 1.0 H Seg Neutrophils % 74.8 H Seg Neuts % (Manual) Lymphocytes % (Manual) Seg Neutrophils # Seg Neutrophils # Man Lymphocytes # (Manual) PT INR APTT POC ABG pH POC ABG pCO2 POC ABG pO2 Sodium Potassium Chloride Carbon Dioxide 32 H BUN 70 H Creatinine 2.5 H Glucose 105 H POC Glucose 131 H Lactic Acid Calcium 8.0 L Phosphorus Magnesium Iron TIBC AST ALT Alkaline Phosphatase Lactate Dehydrogenase Total Creatine Kinase C-Reactive Protein Total Protein Albumin Prealbumin CA 19-9 Antigen Folate PTH Intact Urine WBC (Auto) Urine Creatinine Urine Chloride Urine Total Protein Fluid Glucose Fluid Total Protein Vancomycin Trough Miscellaneous Test Crossmatch 06/20/18 06/20/18 06/20/18 05:55 12:10 16:01 WBC RBC Hgb Hct MCV MCHC RDW Plt Count Lymph % (Auto) [place] % (Auto) Lymph # [place] # Seg Neutrophils % Seg Neuts % (Manual) Lymphocytes % (Manual) Seg Neutrophils # Seg Neutrophils # Man Lymphocytes # (Manual) PT INR APTT POC ABG pH POC ABG pCO2 POC ABG pO2 Sodium Potassium Chloride Carbon Dioxide BUN Creatinine Glucose POC Glucose 112 H 127 H 145 H Lactic Acid Calcium Phosphorus Magnesium Iron TIBC AST ALT Alkaline Phosphatase Lactate Dehydrogenase Total Creatine Kinase C-Reactive Protein Total Protein Albumin Prealbumin CA 19-9 Antigen Folate PTH Intact Urine WBC (Auto) Urine Creatinine Urine Chloride Urine Total Protein Fluid Glucose Fluid Total Protein Vancomycin Trough Miscellaneous Test Crossmatch 06/20/18 06/21/18 06/21/18 23:54 05:50 05:50 WBC RBC 2.57 L Hgb 7.7 L Hct 26.6 L MCV 104 H MCHC 29 L RDW 19.1 H Plt Count 521 H Lymph % (Auto) 10.0 L [place] % (Auto) 7.4 H Lymph # 1.0 L [place] # Seg Neutrophils % 81.3 H Seg Neuts % (Manual) Lymphocytes % (Manual) Seg Neutrophils # 7.9 H Seg Neutrophils # Man Lymphocytes # (Manual) PT INR APTT POC ABG pH POC ABG pCO2 POC ABG pO2 Sodium Potassium 5.8 H D Chloride 90.3 L Carbon Dioxide 37 H BUN 57 H Creatinine 1.9 H Glucose POC Glucose 154 H Lactic Acid Calcium 7.3 L Phosphorus Magnesium Iron TIBC AST 50 H ALT Alkaline Phosphatase 190 H Lactate Dehydrogenase Total Creatine Kinase C-Reactive Protein Total Protein Albumin 1.8 L Prealbumin CA 19-9 Antigen Folate PTH Intact Urine WBC (Auto) Urine Creatinine Urine Chloride Urine Total Protein Fluid Glucose Fluid Total Protein Vancomycin Trough Miscellaneous Test Crossmatch 06/21/18 06/21/18 06:57 13:37 WBC RBC Hgb Hct MCV MCHC RDW Plt Count Lymph % (Auto) [place] % (Auto) Lymph # [place] # Seg Neutrophils % Seg Neuts % (Manual) Lymphocytes % (Manual) Seg Neutrophils # Seg Neutrophils # Man Lymphocytes # (Manual) PT INR APTT POC ABG pH POC ABG pCO2 POC ABG pO2 Sodium Potassium Chloride Carbon Dioxide BUN Creatinine Glucose POC Glucose 141 H 148 H Lactic Acid Calcium Phosphorus Magnesium Iron TIBC AST ALT Alkaline Phosphatase Lactate Dehydrogenase Total Creatine Kinase C-Reactive Protein Total Protein Albumin Prealbumin CA 19-9 Antigen Folate PTH Intact Urine WBC (Auto) Urine Creatinine Urine Chloride Urine Total Protein Fluid Glucose Fluid Total Protein Vancomycin Trough Miscellaneous Test Crossmatch Allied health notes reviewed: nursing
[2018-06-21] MEDS: NACL 0.45% 1000 ML 1,000 ML IV SCH (16:39)
--- NOTE | 2018-06-21 17:47 | Hem/Onc Progress Note ---
Assessment and Plan #bowel obstruction - s/p diverting colostomy 05/26 sx notes -mentions matted mass #radiology Pelvic mass Large pelvic mass between bladder and rectum with large lymph nodes, s/p cystoscopy prostate area bx - sq cell features- anal vs lung path from ascites and pleural fluid reviewed # CT had shown bowel obstruction - s/p diverting colostomy # anemia - PRBC as needed low folate - on replacement # h/o leukocytosis on 05/22 - we will follow - likely reactive # h/o Acute kidney injury due to pelvic mass - Nephrology following. Ultrasound Kidneys showed bilat hydronephrosis CT Abd shows Pelvic mass with multiple large lymph nodes Had bilateral nephrostomy tubes placed 05/14/[address] Freeman. 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 - Patient Problems (1) Pelvic mass in male Current Visit: Yes Status: Acute Subjective Date of service: 06/21/18 Principal diagnosis: sq cell ca Interval history: pt had diverting colostomy 05/26 has colostomy on 06/14 - rt chest thoracentesis done d/w sister 06/21 Objective - Constitutional Vitals: Last Vital Signs Temp 99.2 F 06/21/18 14:47 Pulse 98 H 06/21/18 14:47 Resp 16 06/21/18 15:03 BP 157/105 06/21/18 14:47 Pulse Ox 99 06/21/18 14:47 Pain Intensity (0-10): denies any pain General appearance: no acute distress Performance status: 3-limited selfcare - EENT ENT: clear oral mucosa Lymph node exam: negative cervical, negative supraclavicular - Respiratory Respiratory: bilateral: diminished (decreased in base) - Cardiovascular Heart Sounds: Present: S1 & S2 Extremities: No edema - Gastrointestinal General gastrointestinal: Present: soft, other (colostomy) Rectal Exam: deferred - Genitourinary Male genitourinary: Present: deferred - Integumentary Integumentary: warm - Musculoskeletal Musculoskeletal: generalized weakness - Neurologic Neurologic: moves all extremities - Labs Lab Results: Laboratory Results - last 24 hr 06/20/18 06/21/18 06/21/18 23:54 05:50 05:50 WBC 9.7 RBC 2.57 L Hgb 7.7 L Hct 26.6 L MCV 104 H MCH 30 MCHC 29 L RDW 19.1 H Plt Count 521 H Lymph % (Auto) 10.0 L [place] % (Auto) 7.4 H Eos % (Auto) 0.4 Baso % (Auto) 0.9 Lymph # 1.0 L [place] # 0.7 Eos # 0.0 Baso # 0.1 Seg Neutrophils % 81.3 H Seg Neutrophils # 7.9 H Sodium 137 Potassium 5.8 H D Chloride 90.3 L Carbon Dioxide 37 H Anion Gap 16 BUN 57 H Creatinine 1.9 H Estimated GFR 45 BUN/Creatinine Ratio 30 Glucose TNR POC Glucose 154 H Calcium 7.3 L Phosphorus 4.40 Magnesium 2.20 Total Bilirubin 0.20 AST 50 H ALT 35 Alkaline Phosphatase 190 H Total Protein 6.9 Albumin 1.8 L Albumin/Globulin Ratio 0.4 06/21/18 06/21/18 06/21/18 06:57 13:37 17:00 WBC RBC Hgb Hct MCV MCH MCHC RDW Plt Count Lymph % (Auto) [place] % (Auto) Eos % (Auto) Baso % (Auto) Lymph # [place] # Eos # Baso # Seg Neutrophils % Seg Neutrophils # Sodium Potassium Chloride Carbon Dioxide Anion Gap BUN Creatinine Estimated GFR BUN/Creatinine Ratio Glucose 111 H POC Glucose 141 H 148 H Calcium Phosphorus Magnesium Total Bilirubin AST ALT Alkaline Phosphatase Total Protein Albumin Albumin/Globulin Ratio 06/21/18 06/21/18 17:00 17:27 WBC RBC Hgb Hct MCV MCH MCHC RDW Plt Count Lymph % (Auto) [place] % (Auto) Eos % (Auto) Baso % (Auto) Lymph # [place] # Eos # Baso # Seg Neutrophils % Seg Neutrophils # Sodium Potassium 3.9 D Chloride Carbon Dioxide Anion Gap BUN Creatinine Estimated GFR BUN/Creatinine Ratio Glucose POC Glucose 130 H Calcium Phosphorus Magnesium Total Bilirubin AST ALT Alkaline Phosphatase Total Protein Albumin Albumin/Globulin Ratio
[2018-06-21] MEDS ORDERED: TPN ADULT 2,016 ML IV SCH (20:00)
[2018-06-22] MEDS: HumuLIN R SUB-Q SCH ×4 (05:36→22:21)
[2018-06-22] MEDS: NACL 0.45% 1000 ML 1,000 ML IV SCH (05:51)
[2018-06-22] MEDS: APRESOLINE PO SCH ×3 (06:08→22:18)
[2018-06-22 06:39] LABS: Calcium 7.5 mg/dL (8.4-10.2)
[2018-06-22 08:21] LABS: Calcium 8.3 mg/dL (8.4-10.2)
--- NOTE | 2018-06-22 09:03 | Progress Note ---
Assessment and Plan 1. Acute kidney injury: Initial MARYLOU in the setting of bilateral hydronephrosis secondary to pelvic mass , now s/p bilateral nephrostomy. Recurrent Acute kidney injury likely ATN. Patient was started on hemodialysis due to worsening renal function and persistent hyperkalemia. Last dialyzed on 06/02/18. BUN and Creatinine level are improving. Continue IV fluids. Renal prognosis is guarded. 2. Electrolytes: Hypokalemia, replete K. Metabolic acidosis, improved. 3. Bowel obstruction: S/p ostomy. 4. Bilateral hydronephrosis: Secondary to pelvic mass. S/p bilateral nephrostomy. S/p Cysto and drainage of abscess. 5. Respiratory failure: S/p extubated. 6. Hypertension: Increase Labetalol. Monitor BP. 7. Sepsis: Complicated UTI and pneumonia. On Zosyn. 8. Anemia. 9. 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 Await LTAC placement. Subjective Date of service: 06/22/18 Principal diagnosis: sq cell ca Interval history: Patient was seen and examined at the bedside. Doing ok. Objective - Vital Signs Vital signs: Vital Signs - 12hr 06/21/18 06/21/18 06/21/18 22:00 22:27 23:23 Temperature 98.2 F Pulse Rate 90 87 Respiratory 20 18 Rate Blood Pressure 148/89 156/98 O2 Sat by Pulse 96 96 Oximetry 06/22/18 06:05 Temperature Pulse Rate 98 H Respiratory 20 Rate Blood Pressure 166/106 O2 Sat by Pulse 95 Oximetry - General Appearance General appearance: well-developed, appears stated age, other (not in distress) EENT: ATNC, PERRL, hearing intact Neck: supple Respiratory: Present: Clear to Ascultation Cardiology: regular, S1S2, no murmurs Gastrointestinal: normoactive bowel sounds, no tenderness, distended, other ( ostomy, bilateral nephrostomy and drain noted) Integumentary: no rash Neurologic: no focal deficit, no asterixis Musculoskeletal: other (no edema) Psychiatric: cooperative - Lab 06/21/18 05:50 06/22/18 07:48 Most recent lab results Calcium 8.3 mg/dL (8.4-10.2) L 06/22/18 07:48 Phosphorus 4.40 mg/dL (2.5-4.5) 06/21/18 05:50 Magnesium 2.20 mg/dL (1.7-2.3) 06/21/18 05:50 Urine Creatinine 41.2 mg/dL (0.1-20.0) H 06/11/18 07:41 Urine Sodium 79 mmol/L 06/11/18 07:41 Urine Total Protein 142 mg/dL (5-11.8) H 06/11/18 07:41
[2018-06-22] MEDS: FOLVITE PO SCH (10:42)
[2018-06-22] MEDS: FERROUS SULFATE PO SCH ×2 (10:42→22:20)
[2018-06-22] MEDS: NORMODYNE PO SCH ×3 (10:42→22:20)
[2018-06-22] MEDS: PEPCID IV SCH (10:42)
[2018-06-22] MEDS: ZOSYN/NS 2.25 GM/50ML 2.25 GM/50 ML BAG IV SCH ×2 (10:42→23:16)
--- NOTE | 2018-06-22 12:39 | Progress Note ---
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 Differentiated carcinoma with squamous differentiation on pathology but unsure of exact primary Continue pain control PRN Bilateral pneumonia (possibly aspiration) Monitor respiratory status Continue Nebs PRN Continue antibiotic Bilateral moderate pleural effusion Exudative with negative cytology--CHF versus acute kidney injury/volume overload/third spacing. Sepsis Continue Zosyn Acute kidney injury (obstructive uropathy vs contrast nephropathy) was on hemodialysis temporarily. Stable renal function. Dialysis catheter removed as per nephrology Continue to monitor BMP and kidney fuction Had bilateral nephrostomy tubes placed 05/14/[address] Freeman. Acute deep venous thrombosis Anticoagulation previously on hold because of anemia, bilateral nephrostomy tubes and abdominal surgery We will restart anticoagulation -- will check with Heme Start Lovenox SC 1mg/kg BID Bowel obstruction Etiology secondary to extrinsic compression from mass. Continue TPN Moderate to severe protein calorie malnutrition Continue tube feeding Started on diet and tolerating Hypokalemia, now resolved Potassium and mag replacement as needed Anemia due to Chronic illness s/p PRBC transfusion Plan is for LTAC. However,not yet approved. History Interval history: Feels better, No abdominal pain currently Hospitalist Physical - Physical exam Narrative exam: GEN:Not in acute distress, lying in bed, ill looking, HEENT: Normocephalic, atraumatic, Neck: supple, No JVD Lungs: Decreased breath sounds both bases, no crackles Heart:S1 and S2 regular no murmurs, rubs or gallop Abd:soft, mild tender, ostomy, bilat nephrostomy tubes, bowel sounds present Ext: No edema, clubbing or cyanosis Neuro: Awake, alert,oriented x 3, moves all ext - Constitutional Vitals: Temp Pulse Resp BP Pulse Ox 98.2 F 105 H 20 170/112 97 06/21/18 23:23 06/22/18 10:42 06/22/18 06:05 06/22/18 10:42 06/22/18 09:37 General appearance: Present: no acute distress Results - Labs CBC & Chem 7: 06/21/18 05:50 06/22/18 07:48 Labs: Laboratory Last Values WBC 9.7 K/mm3 (4.5-11.0) 06/21/18 05:50 RBC 2.57 M/mm3 (3.65-5.03) L 06/21/18 05:50 Hgb 7.7 gm/dl (11.8-15.2) L 06/21/18 05:50 Hct 26.6 % (35.5-45.6) L 06/21/18 05:50 MCV 104 fl (84-94) H 06/21/18 05:50 MCH 30 pg (28-32) 06/21/18 05:50 MCHC 29 % (32-34) L 06/21/18 05:50 RDW 19.1 % (13.2-15.2) H 06/21/18 05:50 Plt Count 521 K/mm3 (140-440) H 06/21/18 05:50 Lymph % (Auto) 10.0 % (13.4-35.0) L 06/21/18 05:50 [place] % (Auto) 7.4 % (0.0-7.3) H 06/21/18 05:50 Eos % (Auto) 0.4 % (0.0-4.3) 06/21/18 05:50 Baso % (Auto) 0.9 % (0.0-1.8) 06/21/18 05:50 Lymph # 1.0 K/mm3 (1.2-5.4) L 06/21/18 05:50 [place] # 0.7 K/mm3 (0.0-0.8) 06/21/18 05:50 Eos # 0.0 K/mm3 (0.0-0.4) 06/21/18 05:50 Baso # 0.1 K/mm3 (0.0-0.1) 06/21/18 05:50 Add Manual Diff Complete 05/31/18 04:50 Total Counted 100 05/31/18 04:50 Seg Neutrophils % 81.3 % (40.0-70.0) H 06/21/18 05:50 Seg Neuts % (Manual) 91.0 % (40.0-70.0) H 05/31/18 04:50 Band Neutrophils % 2.0 % 05/31/18 04:50 Lymphocytes % (Manual) 2.0 % (13.4-35.0) L 05/31/18 04:50 Reactive Lymphs % (Man) 0 % 05/31/18 04:50 Monocytes % (Manual) 2.0 % (0.0-7.3) 05/31/18 04:50 Eosinophils % (Manual) 1.0 % (0.0-4.3) 05/31/18 04:50 Basophils % (Manual) 0 % (0.0-1.8) 05/31/18 04:50 Metamyelocytes % 1.0 % 05/31/18 04:50 Myelocytes % 1.0 % 05/31/18 04:50 Promyelocytes % 0 % 05/31/18 04:50 Blast Cells % 0 % 05/31/18 04:50 Nucleated RBC % Not Reportable 05/31/18 04:50 Seg Neutrophils # 7.9 K/mm3 (1.8-7.7) H 06/21/18 05:50 Seg Neutrophils # Man 17.0 K/mm3 (1.8-7.7) H 05/31/18 04:50 Band Neutrophils # 0.4 K/mm3 05/31/18 04:50 Lymphocytes # (Manual) 0.4 K/mm3 (1.2-5.4) L 05/31/18 04:50 Abs React Lymphs (Man) 0.0 K/mm3 05/31/18 04:50 Monocytes # (Manual) 0.4 K/mm3 (0.0-0.8) 05/31/18 04:50 Eosinophils # (Manual) 0.2 K/mm3 (0.0-0.4) 05/31/18 04:50 Basophils # (Manual) 0.0 K/mm3 (0.0-0.1) 05/31/18 04:50 Metamyelocytes # 0.2 K/mm3 05/31/18 04:50 Myelocytes # 0.2 K/mm3 05/31/18 04:50 Promyelocytes # 0.0 K/mm3 05/31/18 04:50 Blast Cells # 0.0 K/mm3 05/31/18 04:50 WBC Morphology Not Reportable 05/31/18 04:50 Hypersegmented Neuts Not Reportable 05/31/18 04:50 Hyposegmented Neuts Not Reportable 05/31/18 04:50 Hypogranular Neuts Not Reportable 05/31/18 04:50 Smudge Cells Not Reportable 05/31/18 04:50 Toxic Granulation Not Reportable 05/31/18 04:50 Toxic Vacuolation Not Reportable 05/31/18 04:50 Dohle Bodies Not Reportable 05/31/18 04:50 Pelger-Huet Anomaly Not Reportable 05/31/18 04:50 Mahesh Rods Not Reportable 05/31/18 04:50 Platelet Estimate Appears normal 05/31/18 04:50 Clumped Platelets Not Reportable 05/31/18 04:50 Plt Clumps, EDTA Not Reportable 05/31/18 04:50 Large Platelets Not Reportable 05/31/18 04:50 Giant Platelets Not Reportable 05/31/18 04:50 Platelet Satelliting Not Reportable 05/31/18 04:50 Plt Morphology Comment Not Reportable 05/31/18 04:50 RBC Morphology Not Reportable 05/31/18 04:50 Dimorphic RBCs Not Reportable 05/31/18 04:50 Polychromasia Not Reportable 05/31/18 04:50 Hypochromasia Few 05/31/18 04:50 Poikilocytosis Not Reportable 05/31/18 04:50 Anisocytosis 1+ 05/31/18 04:50 Microcytosis Few 05/31/18 04:50 Macrocytosis Not Reportable 05/31/18 04:50 Spherocytes Not Reportable 05/31/18 04:50 Pappenheimer Bodies Not Reportable 05/31/18 04:50 Sickle Cells Not Reportable 05/31/18 04:50 Target Cells Rare 05/31/18 04:50 Tear Drop Cells Not Reportable 05/31/18 04:50 Ovalocytes 1+ 05/31/18 04:50 Helmet Cells Not Reportable 05/31/18 04:50 Hernandez-Searles Bodies Not Reportable 05/31/18 04:50 [place] Rings Not Reportable 05/31/18 04:50 Nory Cells Not Reportable 05/31/18 04:50 Bite Cells Not Reportable 05/31/18 04:50 Crenated Cell Not Reportable 05/31/18 04:50 Elliptocytes Not Reportable 05/31/18 04:50 Acanthocytes (Spur) Not Reportable 05/31/18 04:50 Rouleaux Not Reportable 05/31/18 04:50 Hemoglobin C Crystals Not Reportable 05/31/18 04:50 Schistocytes Not Reportable 05/31/18 04:50 Malaria parasites Not Reportable 05/31/18 04:50 Mk Bodies Not Reportable 05/31/18 04:50 Hem Pathologist Commnt No 05/31/18 04:50 PT 16.3 Sec. (12.2-14.9) H 06/14/18 09:50 INR 1.24 (0.87-1.13) H 06/14/18 09:50 APTT 40.0 Sec. (24.2-36.6) H 05/23/18 09:03 POC ABG pH 7.362 (7.35-7.45) 05/31/18 09:58 POC ABG pCO2 36.4 (35-45) 05/31/18 09:58 POC ABG pO2 101 (80-105) 05/31/18 09:58 POC ABG HCO3 20.7 05/31/18 09:58 POC ABG Total CO2 22 05/31/18 09:58 POC ABG O2 Sat 98 05/31/18 09:58 POC ABG Base Excess -5 05/31/18 09:58 FiO2 40 % 05/31/18 09:58 Sodium 145 mmol/L (137-145) 06/22/18 07:48 Potassium 3.7 mmol/L (3.6-5.0) 06/22/18 07:48 Chloride 98.6 mmol/L (98-107) 06/22/18 07:48 Carbon Dioxide 37 mmol/L (22-30) H 06/22/18 07:48 Anion Gap 13 mmol/L 06/22/18 07:48 BUN 57 mg/dL (9-20) H 06/22/18 07:48 Creatinine 1.9 mg/dL (0.8-1.5) H 06/22/18 07:48 Estimated GFR 45 ml/min 06/22/18 07:48 BUN/Creatinine Ratio 30 % 06/22/18 07:48 Glucose 147 mg/dL (75-100) H 06/22/18 07:48 POC Glucose 121 (70-105) H 06/22/18 11:26 Hemoglobin A1c 5.7 % (4-6) 05/14/18 05:05 Lactic Acid 3.80 mmol/L (0.7-2.0) H* 05/26/18 11:00 Calcium 8.3 mg/dL (8.4-10.2) L 06/22/18 07:48 Phosphorus 4.40 mg/dL (2.5-4.5) 06/21/18 05:50 Magnesium 2.20 mg/dL (1.7-2.3) 06/21/18 05:50 Iron 24 ug/dL (49-181) L 05/16/18 07:02 TIBC 160 mcg/dL (250-450) L 05/16/18 07:02 Ferritin 325.8 ng/mL (13.0-400.0) 05/16/18 07:02 Total Bilirubin 0.20 mg/dL (0.1-1.2) 06/21/18 05:50 AST 50 units/L (5-40) H 06/21/18 05:50 ALT 35 units/L (7-56) 06/21/18 05:50 Alkaline Phosphatase 190 units/L (35-129) H 06/21/18 05:50 Lactate Dehydrogenase 297 units/L (91-180) H 06/08/18 21:36 Total Creatine Kinase 34 units/L (55-170) L 06/12/18 04:12 CK-MB (CK-2) 2.3 ng/mL (0.0-4.0) 05/25/18 22:46 CK-MB (CK-2) Rel Index 1.4 (0-4) 05/25/18 22:46 C-Reactive Protein 3.60 mg/dL (0.00-1.30) H 06/10/18 17:15 Total Protein 6.9 g/dL (6.3-8.2) 06/21/18 05:50 Albumin 1.8 g/dL (3.9-5) L 06/21/18 05:50 Albumin/Globulin Ratio 0.4 % 06/21/18 05:50 Prealbumin 0.130 g/L (0.200-0.400) L 06/17/18 05:52 Triglycerides 56 mg/dL (2-149) 06/19/18 06:20 CA 19-9 Antigen 57 U/mL (<34) H 06/08/18 21:43 Prostate Specific Ag 0.96 ng/mL (0.00-4.00) 05/14/18 13:29 Free PSA See scanned result 06/08/18 21:44 % Free PSA Calc See scanned result 06/08/18 21:44 Total PSA See scanned result 06/08/18 21:44 Vitamin B12 359.2 pg/mL (211-911) 05/16/18 07:02 Folate 5.39 ng/mL (7.3-26.0) L 05/16/18 07:02 TSH 3.180 mlU/mL (0.270-4.200) 05/14/18 05:05 PTH Intact 65.37 pg/mL (15-65) H 05/14/18 05:05 Urine Color Yellow (Yellow) 06/11/18 07:41 Urine Turbidity Slightly-cloudy (Clear) 06/11/18 07:41 Urine pH 6.0 (5.0-7.0) 06/11/18 07:41 Ur Specific [place] 1.011 (1.003-1.030) 06/11/18 07:41 Urine Protein 100 mg/dl mg/dL (Negative) 06/11/18 07:41 Urine Glucose (UA) 150 mg/dL (Negative) 06/11/18 07:41 Urine Ketones Neg mg/dL (Negative) 06/11/18 07:41 Urine Blood Sm (Negative) 06/11/18 07:41 Urine Nitrite Neg (Negative) 06/11/18 07:41 Urine Bilirubin Neg (Negative) 06/11/18 07:41 Urine Urobilinogen < 2.0 mg/dL (<2.0) 06/11/18 07:41 Ur Leukocyte Esterase Sm (Negative) 06/11/18 07:41 Urine WBC (Auto) 10.0 /HPF (0.0-6.0) H 06/11/18 07:41 Urine RBC (Auto) 5.0 /HPF (0.0-6.0) 06/11/18 07:41 U Epithel Cells (Auto) 1.0 /HPF (0-13.0) 06/11/18 07:41 Urine Bacteria (Auto) 1+ /HPF (Negative) 06/11/18 07:41 Urine WBC Clumps Few /HPF 05/13/18 19:39 Urine Mucus Few /HPF 06/11/18 07:41 Ur Yeast w [place]pha[place] Few /HPF 06/11/18 07:41 Urine Yeast (Budding) Few /HPF 06/11/18 07:41 Urine Creatinine 41.2 mg/dL (0.1-20.0) H 06/11/18 07:41 Urine Sodium 79 mmol/L 06/11/18 07:41 Urine Potassium 13.27 mmol/L 06/11/18 07:41 Urine Chloride 49.2 mmolL (110-250) L 06/11/18 07:41 Urine Total Protein 142 mg/dL (5-11.8) H 06/11/18 07:41 Fluid Type Ascitic 06/03/18 Unknown Fluid Color Yellow 06/03/18 Unknown Fluid Appearance Cloudy 06/03/18 Unknown Fluid WBC 96076 /mm3 06/03/18 Unknown Fluid RBC 9 /mm3 06/03/18 Unknown Fluid Seg Neutrophils 98.0 % 06/03/18 Unknown Fluid Lymphocytes 2.0 % 06/03/18 Unknown Fluid Reactive Lymphs 0 % 06/03/18 Unknown Fluid Monocytes 0 % 06/03/18 Unknown Fluid Eosinophils 0 % 06/03/18 Unknown Fluid Basophils 0 % 06/03/18 Unknown Fluid Glucose 10 mg/dL (40-70) L 06/03/18 Unknown Fluid Total Protein 3.7 (15.0-45.0) L 06/03/18 Unknown Fluid Albumin 0.8 g/dL 06/03/18 Unknown Fluid LDH > 69043 06/03/18 Unknown Fluid Amylase 126 06/03/18 Unknown Vancomycin Trough 25.1 ug/mL (5.0-20.0) H 05/25/18 22:46 Random Vancomycin 34.3 ug/mL (0-40.0) 05/26/18 11:01 Urine Opiates Screen Presumptive negative 06/11/18 07:41 Urine Methadone Screen Presumptive negative 06/11/18 07:41 Ur Barbiturates Screen Presumptive negative 06/11/18 07:41 Ur Phencyclidine Scrn Presumptive negative 06/11/18 07:41 Ur Amphetamines Screen Presumptive negative 06/11/18 07:41 U Benzodiazepines Scrn Presumptive negative 06/11/18 07:41 Urine Cocaine Screen Presumptive negative 06/11/18 07:41 U Marijuana (THC) Screen Presumptive negative 06/11/18 07:41 Drugs of Abuse Note Disclamer 06/11/18 07:41 ZEUS Screen Negative (Negative) 05/14/18 05:05 Proteinase 3 (PR3) Ab <1.0 AI (<1.0) 05/14/18 05:05 Myeloperoxidase Ab <1.0 AI (<1.0) 05/14/18 05:05 Complement C3 147 mg/dL (82-185) 05/14/18 05:05 Complement C4 45 mg/dL (15-53) 05/14/18 05:05 Hepatitis A IgM Ab Nonreactive (NonReactive) 05/27/18 13:41 Hep Bs Antigen Non-reactive (Negative) 05/27/18 13:41 Hep B Core IgM Ab Non-reactive (NonReactive) 05/27/18 13:41 Hepatitis C Antibody Non-reactive (NonReactive) 05/27/18 13:41 Miscellaneous Test Flexitest 1 H 06/09/18 07:37 Blood Type O POSITIVE 06/09/18 13:24 Antibody Screen Negative 06/09/18 13:24 Crossmatch See Detail 06/09/18 13:24
--- NOTE | 2018-06-22 13:39 | Progress Note ---
Assessment and Plan Acute hypoxemic respiratory failure, possibly secondary to 2. Bilateral pneumonia, possibly aspiration. Sepsis syndrome. 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 Acute deep venous thrombosis. Hypertensive urgency. Hyperkalemia, now resolved. Moderate to severe protein calorie malnutrition Hypernatremia. Hypochloremia. Anemia, normocytic. (ABLA) - repeat CXR in am +/- repeat thoracentesis - recommend anticoagulation for VTE if no plans for immediate surgical intervention - continue supplemental oxygen to keep sats > 90% - repeat thoracentesis if clinically decompensates (pleural fluid cytolgy negative) - optimize cardiac function - continue bronchodilators with pulmonary hygiene per RT - continue aspiration precautions - HD/UF for toxin and volume clearance per nephrology prescription - continue anti-infective's per ID recs (zosyn) - continue TPN for now (enteral nutrition once cleared by surgery) - Malignancy per heme-oncologist - continue mobility protocol for pressure ulcer prophylaxis - s/p surgery 05/26 (had ex-lap; matted abdominal organs, pus) - s/p bilateral nephrostomy tubes placed 05/14/[address] Freeman. - continue other care per attending / other consultants - prn paracentesis - continue other care per attending / other consultants .... discharge planning ongoing concurrently ... re-evaluate in am & prn Subjective Date of service: 06/22/18 Principal diagnosis: Acute Hypoxemic Resp Failure; Sepsis Syndrome; Acute VTE; Prostate Cancer Interval history: Patient is seen today for: Acute Hypoxemic Resp Failure; Sepsis Syndrome; Acute VTE; Prostate Cancer Seen and examined at bedside; 24hour events reviewed; nursing and respiratory care staff consulted; no adverse overnight events reported to me; resting peacefully in bed; eating clear liquid diet but very poor appetite; still SOB and on supplemental oxygen Objective Vital Signs - 12hr 06/22/18 06/22/18 06/22/18 06:05 09:05 09:37 Temperature Pulse Rate 98 H 90 Respiratory 20 Rate Blood Pressure 166/106 Blood Pressure 167/106 [Left] O2 Sat by Pulse 95 98 97 Oximetry 06/22/18 06/22/18 10:42 12:09 Temperature 97.7 F Pulse Rate 105 H 89 Respiratory 40 H Rate Blood Pressure 170/112 153/100 Blood Pressure [Left] O2 Sat by Pulse 94 Oximetry Constitutional: no acute distress, alert, other (chronically ill looking middle aged AAM, normocephalic and atraumatic, ) Eyes: non-icteric ENT: oropharynx moist, other (Mallampati 2) Neck: supple, no lymphadenopathy, no JVD, other (no thyromegaly) Effort: mildly labored Ascultation: Bilateral: diminished breath sounds, rales (L>R base), rhonchi ( scant in bases) Percussion: Bilateral: not dull, dull (bases) Cardiovascular: regular rate and rhythm, other (No R/M) Gastrointestinal: hypoactive bowel sounds, soft, tender (mild), other (Distended ; No palpable HSM, bilateral nephrostomy tubes,Colostomy, ZAKI drain) Integumentary: other (femoral vascath) Extremities: no cyanosis, no edema, pulses normal, no ischemia or petechiae Neurologic: normal mental status, non-focal exam, pupils equal and round, other (weak) Psychiatric: mood appropriate, affect normal CBC and BMP: 06/25/18 04:37 06/25/18 04:37 ABG, PT/INR, D-dimer: ABG POC ABG pH 7.362 (7.35-7.45) 05/31/18 09:58 POC ABG pCO2 36.4 (35-45) 05/31/18 09:58 POC ABG pO2 101 (80-105) 05/31/18 09:58 POC ABG HCO3 20.7 05/31/18 09:58 POC ABG Total CO2 22 05/31/18 09:58 POC ABG O2 Sat 98 05/31/18 09:58 PT/INR, D-dimer PT 16.3 Sec. (12.2-14.9) H 06/14/18 09:50 INR 1.24 (0.87-1.13) H 06/14/18 09:50 Abnormal lab findings: Abnormal Labs 05/13/18 05/13/18 05/13/18 04:27 04:27 19:39 WBC RBC 3.13 L Hgb 9.4 L Hct 26.8 L MCV MCHC 35 H RDW Plt Count Lymph % (Auto) [place] % (Auto) 9.6 H Lymph # [place] # Seg Neutrophils % Seg Neuts % (Manual) Lymphocytes % (Manual) Seg Neutrophils # Seg Neutrophils # Man Lymphocytes # (Manual) PT INR APTT POC ABG pH POC ABG pCO2 POC ABG pO2 Sodium 132 L Potassium 5.5 H Chloride 94.1 L Carbon Dioxide 19 L BUN 72 H Creatinine 14.4 H Glucose POC Glucose Lactic Acid Calcium Phosphorus Magnesium Iron TIBC AST ALT Alkaline Phosphatase Lactate Dehydrogenase Total Creatine Kinase C-Reactive Protein Total Protein Albumin 2.8 L Prealbumin CA 19-9 Antigen Folate PTH Intact Urine WBC (Auto) Urine Creatinine 66.0 H Urine Chloride 27.8 L Urine Total Protein 24 H Fluid Glucose Fluid Total Protein Vancomycin Trough Miscellaneous Test Crossmatch 05/13/18 05/14/18 05/14/18 20:00 05:05 05:05 WBC RBC Hgb Hct MCV MCHC RDW Plt Count Lymph % (Auto) [place] % (Auto) Lymph # [place] # Seg Neutrophils % Seg Neuts % (Manual) Lymphocytes % (Manual) Seg Neutrophils # Seg Neutrophils # Man Lymphocytes # (Manual) PT INR APTT POC ABG pH POC ABG pCO2 POC ABG pO2 Sodium 132 L 131 L Potassium 5.2 H 5.8 H Chloride 93.0 L 95.6 L Carbon Dioxide 19 L 20 L BUN 74 H 81 H Creatinine 15.0 H 16.6 H Glucose 134 H 127 H POC Glucose Lactic Acid Calcium 8.2 L 7.9 L Phosphorus 6.30 H Magnesium Iron TIBC AST ALT Alkaline Phosphatase Lactate Dehydrogenase Total Creatine Kinase 236 H C-Reactive Protein Total Protein Albumin Prealbumin CA 19-9 Antigen Folate PTH Intact 65.37 H Urine WBC (Auto) Urine Creatinine Urine Chloride Urine Total Protein Fluid Glucose Fluid Total Protein Vancomycin Trough Miscellaneous Test Crossmatch 05/14/18 05/14/18 05/14/18 09:28 10:56 13:29 WBC RBC Hgb Hct MCV MCHC RDW Plt Count Lymph % (Auto) [place] % (Auto) Lymph # [place] # Seg Neutrophils % Seg Neuts % (Manual) Lymphocytes % (Manual) Seg Neutrophils # Seg Neutrophils # Man Lymphocytes # (Manual) PT INR APTT 38.2 H POC ABG pH POC ABG pCO2 POC ABG pO2 Sodium Potassium Chloride Carbon Dioxide BUN Creatinine Glucose POC Glucose 127 H 126 H Lactic Acid Calcium Phosphorus Magnesium Iron TIBC AST ALT Alkaline Phosphatase Lactate Dehydrogenase Total Creatine Kinase C-Reactive Protein Total Protein Albumin Prealbumin CA 19-9 Antigen Folate PTH Intact Urine WBC (Auto) Urine Creatinine Urine Chloride Urine Total Protein Fluid Glucose Fluid Total Protein Vancomycin Trough Miscellaneous Test Crossmatch 05/15/18 05/15/18 05/16/18 08:06 08:06 07:02 WBC RBC 2.84 L 2.74 L Hgb 8.5 L 8.5 L Hct 24.2 L 23.5 L MCV MCHC 35 H 36 H RDW Plt Count Lymph % (Auto) [place] % (Auto) 10.4 H 11.0 H Lymph # 1.1 L [place] # 0.9 H Seg Neutrophils % 72.6 H Seg Neuts % (Manual) Lymphocytes % (Manual) Seg Neutrophils # Seg Neutrophils # Man Lymphocytes # (Manual) PT INR APTT POC ABG pH POC ABG pCO2 POC ABG pO2 Sodium Potassium Chloride Carbon Dioxide 19 L BUN 66 H Creatinine 12.0 H Glucose 115 H POC Glucose Lactic Acid Calcium 8.1 L Phosphorus Magnesium Iron TIBC AST ALT Alkaline Phosphatase Lactate Dehydrogenase Total Creatine Kinase C-Reactive Protein Total Protein Albumin Prealbumin CA 19-9 Antigen Folate PTH Intact Urine WBC (Auto) Urine Creatinine Urine Chloride Urine Total Protein Fluid Glucose Fluid Total Protein Vancomycin Trough Miscellaneous Test Crossmatch 05/16/18 05/16/18 05/17/18 07:02 07:02 05:08 WBC RBC 2.78 L Hgb 8.2 L Hct 23.9 L MCV MCHC RDW Plt Count Lymph % (Auto) [place] % (Auto) 13.9 H Lymph # [place] # 0.9 H Seg Neutrophils % Seg Neuts % (Manual) Lymphocytes % (Manual) Seg Neutrophils # Seg Neutrophils # Man Lymphocytes # (Manual) PT INR APTT POC ABG pH POC ABG pCO2 POC ABG pO2 Sodium Potassium Chloride Carbon Dioxide BUN 28 H Creatinine 2.4 H D Glucose POC Glucose Lactic Acid Calcium 8.3 L Phosphorus Magnesium 1.50 L Iron 24 L TIBC 160 L AST ALT Alkaline Phosphatase Lactate Dehydrogenase Total Creatine Kinase C-Reactive Protein Total Protein Albumin Prealbumin CA 19-9 Antigen Folate 5.39 L PTH Intact Urine WBC (Auto) Urine Creatinine Urine Chloride Urine Total Protein Fluid Glucose Fluid Total Protein Vancomycin Trough Miscellaneous Test Crossmatch 05/17/18 05/18/18 05/18/18 05:08 05:57 05:57 WBC RBC 2.79 L Hgb 8.3 L Hct 24.0 L MCV MCHC 35 H RDW Plt Count Lymph % (Auto) [place] % (Auto) 11.8 H Lymph # [place] # 0.9 H Seg Neutrophils % Seg Neuts % (Manual) Lymphocytes % (Manual) Seg Neutrophils # Seg Neutrophils # Man Lymphocytes # (Manual) PT INR APTT POC ABG pH POC ABG pCO2 POC ABG pO2 Sodium Potassium Chloride Carbon Dioxide BUN Creatinine Glucose POC Glucose Lactic Acid Calcium 7.7 L 8.0 L Phosphorus Magnesium 1.60 L Iron TIBC AST ALT Alkaline Phosphatase Lactate Dehydrogenase Total Creatine Kinase C-Reactive Protein Total Protein Albumin Prealbumin CA 19-9 Antigen Folate PTH Intact Urine WBC (Auto) Urine Creatinine Urine Chloride Urine Total Protein Fluid Glucose Fluid Total Protein Vancomycin Trough Miscellaneous Test Crossmatch 05/19/18 05/19/18 05/20/18 05:33 05:33 05:38 WBC RBC 2.95 L Hgb 8.8 L Hct 25.8 L MCV MCHC RDW Plt Count Lymph % (Auto) 10.1 L [place] % (Auto) Lymph # 1.1 L [place] # Seg Neutrophils % 85.2 H Seg Neuts % (Manual) Lymphocytes % (Manual) Seg Neutrophils # 9.0 H Seg Neutrophils # Man Lymphocytes # (Manual) PT INR APTT POC ABG pH POC ABG pCO2 POC ABG pO2 Sodium 135 L Potassium Chloride Carbon Dioxide BUN Creatinine Glucose 132 H POC Glucose Lactic Acid Calcium 7.8 L 8.3 L Phosphorus Magnesium 1.40 L Iron TIBC AST ALT Alkaline Phosphatase Lactate Dehydrogenase Total Creatine Kinase C-Reactive Protein Total Protein Albumin Prealbumin CA 19-9 Antigen Folate PTH Intact Urine WBC (Auto) Urine Creatinine Urine Chloride Urine Total Protein Fluid Glucose Fluid Total Protein Vancomycin Trough Miscellaneous Test Crossmatch 05/21/18 05/21/18 05/22/18 04:46 15:30 06:49 WBC 20.0 H RBC 2.70 L Hgb 7.8 L Hct 23.3 L MCV MCHC RDW Plt Count Lymph % (Auto) [place] % (Auto) Lymph # [place] # Seg Neutrophils % Seg Neuts % (Manual) 85.0 H Lymphocytes % (Manual) 4.0 L Seg Neutrophils # Seg Neutrophils # Man 17.0 H Lymphocytes # (Manual) 0.8 L PT INR APTT POC ABG pH POC ABG pCO2 POC ABG pO2 Sodium 135 L Potassium 3.5 L Chloride Carbon Dioxide 21 L BUN 22 H Creatinine Glucose POC Glucose Lactic Acid Calcium 8.1 L Phosphorus Magnesium Iron TIBC AST ALT Alkaline Phosphatase Lactate Dehydrogenase Total Creatine Kinase C-Reactive Protein Total Protein Albumin Prealbumin CA 19-9 Antigen Folate PTH Intact Urine WBC (Auto) 28.0 H Urine Creatinine Urine Chloride Urine Total Protein Fluid Glucose Fluid Total Protein Vancomycin Trough Miscellaneous Test Crossmatch 05/22/18 05/22/18 05/23/18 06:49 11:23 09:03 WBC RBC Hgb Hct MCV MCHC RDW Plt Count Lymph % (Auto) [place] % (Auto) Lymph # [place] # Seg Neutrophils % Seg Neuts % (Manual) Lymphocytes % (Manual) Seg Neutrophils # Seg Neutrophils # Man Lymphocytes # (Manual) PT INR APTT POC ABG pH POC ABG pCO2 POC ABG pO2 Sodium 134 L Potassium 3.5 L Chloride Carbon Dioxide 21 L BUN 35 H 36 H Creatinine 1.7 H Glucose 107 H POC Glucose Lactic Acid Calcium 7.9 L Phosphorus Magnesium 2.50 H Iron TIBC AST ALT Alkaline Phosphatase Lactate Dehydrogenase Total Creatine Kinase C-Reactive Protein Total Protein Albumin Prealbumin CA 19-9 Antigen Folate PTH Intact Urine WBC (Auto) Urine Creatinine Urine Chloride Urine Total Protein Fluid Glucose Fluid Total Protein Vancomycin Trough Miscellaneous Test Crossmatch See Detail 05/23/18 05/23/18 05/23/18 09:03 09:03 17:34 WBC 26.3 H RBC 3.57 L Hgb 10.4 L Hct 31.1 L D MCV MCHC RDW Plt Count Lymph % (Auto) [place] % (Auto) Lymph # [place] # Seg Neutrophils % Seg Neuts % (Manual) Lymphocytes % (Manual) Seg Neutrophils # Seg Neutrophils # Man Lymphocytes # (Manual) PT 18.3 H INR 1.43 H APTT 40.0 H POC ABG pH POC ABG pCO2 POC ABG pO2 Sodium Potassium Chloride Carbon Dioxide BUN Creatinine Glucose POC Glucose 108 H Lactic Acid Calcium Phosphorus Magnesium Iron TIBC AST ALT Alkaline Phosphatase Lactate Dehydrogenase Total Creatine Kinase C-Reactive Protein Total Protein Albumin Prealbumin CA 19-9 Antigen Folate PTH Intact Urine WBC (Auto) Urine Creatinine Urine Chloride Urine Total Protein Fluid Glucose Fluid Total Protein Vancomycin Trough Miscellaneous Test Crossmatch 05/23/18 05/24/18 05/24/18 21:14 04:43 08:04 WBC RBC Hgb Hct MCV MCHC RDW Plt Count Lymph % (Auto) [place] % (Auto) Lymph # [place] # Seg Neutrophils % Seg Neuts % (Manual) Lymphocytes % (Manual) Seg Neutrophils # Seg Neutrophils # Man Lymphocytes # (Manual) PT INR APTT POC ABG pH POC ABG pCO2 POC ABG pO2 Sodium 146 H Potassium Chloride 108.6 H Carbon Dioxide BUN 33 H Creatinine Glucose 109 H POC Glucose 110 H 106 H Lactic Acid Calcium 8.3 L Phosphorus Magnesium 2.50 H Iron TIBC AST ALT Alkaline Phosphatase Lactate Dehydrogenase Total Creatine Kinase C-Reactive Protein Total Protein Albumin Prealbumin CA 19-9 Antigen Folate PTH Intact Urine WBC (Auto) Urine Creatinine Urine Chloride Urine Total Protein Fluid Glucose Fluid Total Protein Vancomycin Trough Miscellaneous Test Crossmatch 05/25/18 05/25/18 05/25/18 05:42 05:49 19:50 WBC RBC Hgb Hct MCV MCHC RDW Plt Count Lymph % (Auto) [place] % (Auto) Lymph # [place] # Seg Neutrophils % Seg Neuts % (Manual) Lymphocytes % (Manual) Seg Neutrophils # Seg Neutrophils # Man Lymphocytes # (Manual) PT INR APTT POC ABG pH POC ABG pCO2 POC ABG pO2 Sodium 150 H Potassium Chloride 112.5 H Carbon Dioxide BUN 34 H Creatinine Glucose 102 H POC Glucose 107 H Lactic Acid Calcium Phosphorus Magnesium Iron TIBC AST ALT Alkaline Phosphatase Lactate Dehydrogenase Total Creatine Kinase C-Reactive Protein 34.50 H Total Protein Albumin Prealbumin CA 19-9 Antigen Folate PTH Intact Urine WBC (Auto) Urine Creatinine Urine Chloride Urine Total Protein Fluid Glucose Fluid Total Protein Vancomycin Trough Miscellaneous Test Crossmatch 05/25/18 05/25/18 05/25/18 19:50 21:05 22:46 WBC RBC Hgb Hct MCV MCHC RDW Plt Count Lymph % (Auto) [place] % (Auto) Lymph # [place] # Seg Neutrophils % Seg Neuts % (Manual) Lymphocytes % (Manual) Seg Neutrophils # Seg Neutrophils # Man Lymphocytes # (Manual) PT INR APTT POC ABG pH 7.483 H POC ABG pCO2 24.0 L POC ABG pO2 72 L Sodium Potassium Chloride Carbon Dioxide BUN Creatinine Glucose POC Glucose Lactic Acid 5.90 H* Calcium Phosphorus Magnesium Iron TIBC AST ALT Alkaline Phosphatase Lactate Dehydrogenase Total Creatine Kinase C-Reactive Protein Total Protein Albumin Prealbumin CA 19-9 Antigen Folate PTH Intact Urine WBC (Auto) Urine Creatinine Urine Chloride Urine Total Protein Fluid Glucose Fluid Total Protein Vancomycin Trough 25.1 H Miscellaneous Test Crossmatch 05/25/18 05/26/18 05/26/18 22:46 00:21 00:51 WBC RBC Hgb Hct MCV MCHC RDW Plt Count Lymph % (Auto) [place] % (Auto) Lymph # [place] # Seg Neutrophils % Seg Neuts % (Manual) Lymphocytes % (Manual) Seg Neutrophils # Seg Neutrophils # Man Lymphocytes # (Manual) PT INR APTT POC ABG pH POC ABG pCO2 POC ABG pO2 Sodium Potassium Chloride Carbon Dioxide BUN Creatinine Glucose POC Glucose 133 H Lactic Acid 8.10 H* 6.20 H* Calcium Phosphorus Magnesium Iron TIBC AST ALT Alkaline Phosphatase Lactate Dehydrogenase Total Creatine Kinase C-Reactive Protein Total Protein Albumin Prealbumin CA 19-9 Antigen Folate PTH Intact Urine WBC (Auto) Urine Creatinine Urine Chloride Urine Total Protein Fluid Glucose Fluid Total Protein Vancomycin Trough Miscellaneous Test Crossmatch 05/26/18 05/26/18 05/26/18 01:13 02:24 02:24 WBC 18.7 H RBC Hgb 11.6 L Hct MCV MCHC RDW Plt Count Lymph % (Auto) [place] % (Auto) Lymph # [place] # Seg Neutrophils % Seg Neuts % (Manual) Lymphocytes % (Manual) Seg Neutrophils # Seg Neutrophils # Man Lymphocytes # (Manual) PT INR APTT POC ABG pH POC ABG pCO2 POC ABG pO2 Sodium 147 H Potassium 6.2 H* D Chloride 111.9 H Carbon Dioxide 19 L BUN 80 H Creatinine 5.1 H D Glucose 112 H POC Glucose Lactic Acid 5.20 H* Calcium 6.7 L D Phosphorus Magnesium Iron TIBC AST ALT Alkaline Phosphatase Lactate Dehydrogenase Total Creatine Kinase C-Reactive Protein Total Protein Albumin Prealbumin CA 19-9 Antigen Folate PTH Intact Urine WBC (Auto) Urine Creatinine Urine Chloride Urine Total Protein Fluid Glucose Fluid Total Protein Vancomycin Trough Miscellaneous Test Crossmatch 05/26/18 05/26/18 05/26/18 04:20 04:20 05:39 WBC RBC Hgb Hct MCV MCHC RDW Plt Count Lymph % (Auto) [place] % (Auto) Lymph # [place] # Seg Neutrophils % Seg Neuts % (Manual) Lymphocytes % (Manual) Seg Neutrophils # Seg Neutrophils # Man Lymphocytes # (Manual) PT INR APTT POC ABG pH POC ABG pCO2 POC ABG pO2 Sodium 150 H Potassium Chloride 110.0 H Carbon Dioxide 19 L BUN 66 H Creatinine Glucose 166 H POC Glucose 187 H Lactic Acid 5.10 H* Calcium 6.9 L Phosphorus 6.70 H D Magnesium Iron TIBC AST ALT Alkaline Phosphatase Lactate Dehydrogenase Total Creatine Kinase C-Reactive Protein Total Protein Albumin Prealbumin CA 19-9 Antigen Folate PTH Intact Urine WBC (Auto) Urine Creatinine Urine Chloride Urine Total Protein Fluid Glucose Fluid Total Protein Vancomycin Trough Miscellaneous Test Crossmatch 05/26/18 05/26/18 05/26/18 06:02 07:29 11:00 WBC RBC Hgb Hct MCV MCHC RDW Plt Count Lymph % (Auto) [place] % (Auto) Lymph # [place] # Seg Neutrophils % Seg Neuts % (Manual) Lymphocytes % (Manual) Seg Neutrophils # Seg Neutrophils # Man Lymphocytes # (Manual) PT INR APTT POC ABG pH POC ABG pCO2 28.8 L POC ABG pO2 Sodium Potassium Chloride Carbon Dioxide BUN Creatinine Glucose POC Glucose Lactic Acid 4.80 H* 3.80 H* Calcium Phosphorus Magnesium Iron TIBC AST ALT Alkaline Phosphatase Lactate Dehydrogenase Total Creatine Kinase C-Reactive Protein Total Protein Albumin Prealbumin CA 19-9 Antigen Folate PTH Intact Urine WBC (Auto) Urine Creatinine Urine Chloride Urine Total Protein Fluid Glucose Fluid Total Protein Vancomycin Trough Miscellaneous Test Crossmatch 05/26/18 05/26/18 05/26/18 11:01 12:28 18:00 WBC RBC Hgb Hct MCV MCHC RDW Plt Count Lymph % (Auto) [place] % (Auto) Lymph # [place] # Seg Neutrophils % Seg Neuts % (Manual) Lymphocytes % (Manual) Seg Neutrophils # Seg Neutrophils # Man Lymphocytes # (Manual) PT INR APTT POC ABG pH POC ABG pCO2 POC ABG pO2 Sodium 150 H 151 H Potassium 5.3 H D 6.1 H* Chloride 110.3 H 117.0 H Carbon Dioxide 21 L 20 L BUN 75 H 77 H Creatinine 4.3 H D 4.6 H Glucose 161 H POC Glucose 114 H Lactic Acid Calcium 7.5 L 6.7 L Phosphorus Magnesium Iron TIBC AST 1041 H ALT 406 H Alkaline Phosphatase 281 H Lactate Dehydrogenase Total Creatine Kinase C-Reactive Protein Total Protein 4.4 L Albumin 1.3 L Prealbumin CA 19-9 Antigen Folate PTH Intact Urine WBC (Auto) Urine Creatinine Urine Chloride Urine Total Protein Fluid Glucose Fluid Total Protein Vancomycin Trough Miscellaneous Test Crossmatch 05/26/18 05/26/18 05/27/18 18:02 19:17 01:01 WBC 21.7 H RBC 2.70 L Hgb 7.8 L D Hct 24.6 L D MCV MCHC RDW 15.3 H Plt Count Lymph % (Auto) [place] % (Auto) Lymph # [place] # Seg Neutrophils % Seg Neuts % (Manual) 94.0 H Lymphocytes % (Manual) 3.0 L Seg Neutrophils # Seg Neutrophils # Man 20.4 H Lymphocytes # (Manual) 0.7 L PT INR APTT POC ABG pH 7.159 L 7.205 L POC ABG pCO2 54.5 H 53.0 H POC ABG pO2 252 H Sodium Potassium Chloride Carbon Dioxide BUN Creatinine Glucose POC Glucose Lactic Acid Calcium Phosphorus Magnesium Iron TIBC AST ALT Alkaline Phosphatase Lactate Dehydrogenase Total Creatine Kinase C-Reactive Protein Total Protein Albumin Prealbumin CA 19-9 Antigen Folate PTH Intact Urine WBC (Auto) Urine Creatinine Urine Chloride Urine Total Protein Fluid Glucose Fluid Total Protein Vancomycin Trough Miscellaneous Test Crossmatch 05/27/18 05/27/18 05/27/18 05:15 05:15 06:11 WBC 24.9 H RBC 2.86 L Hgb 8.1 L Hct 25.9 L MCV MCHC RDW 15.5 H Plt Count Lymph % (Auto) [place] % (Auto) Lymph # [place] # Seg Neutrophils % Seg Neuts % (Manual) Lymphocytes % (Manual) Seg Neutrophils # Seg Neutrophils # Man Lymphocytes # (Manual) PT INR APTT POC ABG pH 7.265 L POC ABG pCO2 46.2 H POC ABG pO2 111 H Sodium 149 H Potassium 6.9 H* Chloride 113.5 H Carbon Dioxide BUN 89 H Creatinine 5.2 H Glucose 118 H POC Glucose Lactic Acid Calcium 7.0 L Phosphorus 9.70 H D Magnesium Iron TIBC AST 876 H ALT 408 H Alkaline Phosphatase Lactate Dehydrogenase Total Creatine Kinase C-Reactive Protein Total Protein 5.2 L Albumin 1.5 L Prealbumin CA 19-9 Antigen Folate PTH Intact Urine WBC (Auto) Urine Creatinine Urine Chloride Urine Total Protein Fluid Glucose Fluid Total Protein Vancomycin Trough Miscellaneous Test Crossmatch 09/14/18 09/14/18 09/14/18 08:48 10:22 10:22 WBC RBC Hgb Hct MCV MCHC RDW Plt Count Lymph % (Auto) [place] % (Auto) Lymph # [place] # Seg Neutrophils % Seg Neuts % (Manual) Lymphocytes % (Manual) Seg Neutrophils # Seg Neutrophils # Man Lymphocytes # (Manual) PT INR APTT POC ABG pH POC ABG pCO2 POC ABG pO2 Sodium 146 H Potassium 6.1 H* Chloride 108.2 H Carbon Dioxide 21 L BUN 88 H Creatinine 5.6 H Glucose 163 H POC Glucose 164 H Lactic Acid Calcium 6.7 L Phosphorus Magnesium Iron TIBC AST ALT Alkaline Phosphatase Lactate Dehydrogenase Total Creatine Kinase C-Reactive Protein 40.70 H Total Protein Albumin Prealbumin CA 19-9 Antigen Folate PTH Intact Urine WBC (Auto) Urine Creatinine Urine Chloride Urine Total Protein Fluid Glucose Fluid Total Protein Vancomycin Trough Miscellaneous Test Crossmatch 05/27/18 05/27/18 05/27/18 13:02 17:39 23:27 WBC RBC Hgb Hct MCV MCHC RDW Plt Count Lymph % (Auto) [place] % (Auto) Lymph # [place] # Seg Neutrophils % Seg Neuts % (Manual) Lymphocytes % (Manual) Seg Neutrophils # Seg Neutrophils # Man Lymphocytes # (Manual) PT INR APTT POC ABG pH POC ABG pCO2 POC ABG pO2 Sodium Potassium Chloride Carbon Dioxide BUN Creatinine Glucose POC Glucose 59 L 132 H Lactic Acid Calcium Phosphorus Magnesium Iron TIBC AST ALT Alkaline Phosphatase Lactate Dehydrogenase Total Creatine Kinase C-Reactive Protein Total Protein Albumin Prealbumin CA 19-9 Antigen Folate PTH Intact Urine WBC (Auto) Urine Creatinine Urine Chloride Urine Total Protein Fluid Glucose Fluid Total Protein Vancomycin Trough Miscellaneous Test Flexitest 1 H Crossmatch 05/27/18 05/28/18 05/28/18 Unknown 04:32 05:00 WBC RBC Hgb Hct MCV MCHC RDW Plt Count Lymph % (Auto) [place] % (Auto) Lymph # [place] # Seg Neutrophils % Seg Neuts % (Manual) Lymphocytes % (Manual) Seg Neutrophils # Seg Neutrophils # Man Lymphocytes # (Manual) PT INR APTT POC ABG pH POC ABG pCO2 POC ABG pO2 134 H Sodium Potassium Chloride Carbon Dioxide BUN 69 H Creatinine 4.4 H Glucose 118 H POC Glucose Lactic Acid Calcium 8.0 L D Phosphorus 6.80 H D Magnesium Iron TIBC AST ALT Alkaline Phosphatase Lactate Dehydrogenase Total Creatine Kinase C-Reactive Protein Total Protein Albumin Prealbumin CA 19-9 Antigen Folate PTH Intact Urine WBC (Auto) 120.0 H Urine Creatinine Urine Chloride Urine Total Protein Fluid Glucose Fluid Total Protein Vancomycin Trough Miscellaneous Test Crossmatch 05/28/18 05/28/18 05/28/18 05:00 05:27 13:04 WBC 26.5 H RBC 2.69 L Hgb 7.7 L Hct 23.6 L MCV MCHC RDW Plt Count Lymph % (Auto) [place] % (Auto) Lymph # [place] # Seg Neutrophils % Seg Neuts % (Manual) 96.0 H Lymphocytes % (Manual) 0 L Seg Neutrophils # Seg Neutrophils # Man 25.4 H Lymphocytes # (Manual) 0.0 L PT INR APTT POC ABG pH POC ABG pCO2 POC ABG pO2 Sodium Potassium Chloride Carbon Dioxide BUN Creatinine Glucose POC Glucose 128 H 155 H Lactic Acid Calcium Phosphorus Magnesium Iron TIBC AST ALT Alkaline Phosphatase Lactate Dehydrogenase Total Creatine Kinase C-Reactive Protein Total Protein Albumin Prealbumin CA 19-9 Antigen Folate PTH Intact Urine WBC (Auto) Urine Creatinine Urine Chloride Urine Total Protein Fluid Glucose Fluid Total Protein Vancomycin Trough Miscellaneous Test Crossmatch 05/28/18 05/29/18 05/29/18 17:56 03:35 04:00 WBC RBC Hgb Hct MCV MCHC RDW Plt Count Lymph % (Auto) [place] % (Auto) Lymph # [place] # Seg Neutrophils % Seg Neuts % (Manual) Lymphocytes % (Manual) Seg Neutrophils # Seg Neutrophils # Man Lymphocytes # (Manual) PT INR APTT POC ABG pH 7.471 H POC ABG pCO2 POC ABG pO2 78 L Sodium Potassium Chloride Carbon Dioxide BUN 50 H Creatinine 3.9 H Glucose POC Glucose 110 H Lactic Acid Calcium 7.7 L Phosphorus Magnesium 1.50 L Iron TIBC AST 218 H ALT 204 H Alkaline Phosphatase Lactate Dehydrogenase Total Creatine Kinase C-Reactive Protein Total Protein 5.4 L Albumin 1.6 L Prealbumin CA 19-9 Antigen Folate PTH Intact Urine WBC (Auto) Urine Creatinine Urine Chloride Urine Total Protein Fluid Glucose Fluid Total Protein Vancomycin Trough Miscellaneous Test Crossmatch 05/29/18 05/29/18 05/30/18 11:51 23:56 04:54 WBC RBC Hgb Hct MCV MCHC RDW Plt Count Lymph % (Auto) [place] % (Auto) Lymph # [place] # Seg Neutrophils % Seg Neuts % (Manual) Lymphocytes % (Manual) Seg Neutrophils # Seg Neutrophils # Man Lymphocytes # (Manual) PT INR APTT POC ABG pH POC ABG pCO2 POC ABG pO2 Sodium Potassium Chloride Carbon Dioxide BUN Creatinine Glucose POC Glucose 131 H 119 H 115 H Lactic Acid Calcium Phosphorus Magnesium Iron TIBC AST ALT Alkaline Phosphatase Lactate Dehydrogenase Total Creatine Kinase C-Reactive Protein Total Protein Albumin Prealbumin CA 19-9 Antigen Folate PTH Intact Urine WBC (Auto) Urine Creatinine Urine Chloride Urine Total Protein Fluid Glucose Fluid Total Protein Vancomycin Trough Miscellaneous Test Crossmatch 05/30/18 05/30/18 05/30/18 05:07 05:15 05:15 WBC 16.2 H RBC 2.53 L Hgb 7.4 L Hct 21.9 L MCV MCHC RDW Plt Count Lymph % (Auto) [place] % (Auto) Lymph # [place] # Seg Neutrophils % Seg Neuts % (Manual) Lymphocytes % (Manual) Seg Neutrophils # Seg Neutrophils # Man Lymphocytes # (Manual) PT INR APTT POC ABG pH POC ABG pCO2 34.5 L POC ABG pO2 133 H Sodium 135 L Potassium Chloride 97.5 L Carbon Dioxide BUN 69 H Creatinine 5.4 H Glucose 105 H POC Glucose Lactic Acid Calcium 7.5 L Phosphorus 5.30 H D Magnesium Iron TIBC AST ALT Alkaline Phosphatase Lactate Dehydrogenase Total Creatine Kinase C-Reactive Protein Total Protein Albumin Prealbumin CA 19-9 Antigen Folate PTH Intact Urine WBC (Auto) Urine Creatinine Urine Chloride Urine Total Protein Fluid Glucose Fluid Total Protein Vancomycin Trough Miscellaneous Test Crossmatch 05/30/18 05/30/18 05/31/18 12:13 17:10 04:50 WBC 18.7 H RBC 2.86 L Hgb 8.2 L Hct 24.8 L MCV MCHC RDW Plt Count Lymph % (Auto) [place] % (Auto) Lymph # [place] # Seg Neutrophils % Seg Neuts % (Manual) 91.0 H Lymphocytes % (Manual) 2.0 L Seg Neutrophils # Seg Neutrophils # Man 17.0 H Lymphocytes # (Manual) 0.4 L PT INR APTT POC ABG pH POC ABG pCO2 POC ABG pO2 Sodium Potassium Chloride Carbon Dioxide BUN Creatinine Glucose POC Glucose 132 H 122 H Lactic Acid Calcium Phosphorus Magnesium Iron TIBC AST ALT Alkaline Phosphatase Lactate Dehydrogenase Total Creatine Kinase C-Reactive Protein Total Protein Albumin Prealbumin CA 19-9 Antigen Folate PTH Intact Urine WBC (Auto) Urine Creatinine Urine Chloride Urine Total Protein Fluid Glucose Fluid Total Protein Vancomycin Trough Miscellaneous Test Crossmatch 05/31/18 05/31/18 05/31/18 04:50 05:45 11:37 WBC RBC Hgb Hct MCV MCHC RDW Plt Count Lymph % (Auto) [place] % (Auto) Lymph # [place] # Seg Neutrophils % Seg Neuts % (Manual) Lymphocytes % (Manual) Seg Neutrophils # Seg Neutrophils # Man Lymphocytes # (Manual) PT INR APTT POC ABG pH POC ABG pCO2 POC ABG pO2 Sodium 132 L Potassium Chloride 92.4 L Carbon Dioxide BUN 77 H Creatinine 5.9 H Glucose POC Glucose 111 H 136 H Lactic Acid Calcium 7.3 L Phosphorus 6.40 H D Magnesium Iron TIBC AST ALT Alkaline Phosphatase Lactate Dehydrogenase Total Creatine Kinase C-Reactive Protein Total Protein Albumin Prealbumin CA 19-9 Antigen Folate PTH Intact Urine WBC (Auto) Urine Creatinine Urine Chloride Urine Total Protein Fluid Glucose Fluid Total Protein Vancomycin Trough Miscellaneous Test Crossmatch 05/31/18 06/01/18 06/01/18 17:52 00:09 04:00 WBC RBC Hgb Hct MCV MCHC RDW Plt Count Lymph % (Auto) [place] % (Auto) Lymph # [place] # Seg Neutrophils % Seg Neuts % (Manual) Lymphocytes % (Manual) Seg Neutrophils # Seg Neutrophils # Man Lymphocytes # (Manual) PT INR APTT POC ABG pH POC ABG pCO2 POC ABG pO2 Sodium Potassium Chloride 97.5 L Carbon Dioxide BUN 49 H Creatinine 4.2 H Glucose 104 H POC Glucose 115 H 114 H Lactic Acid Calcium 7.3 L Phosphorus 4.70 H D Magnesium Iron TIBC AST ALT Alkaline Phosphatase Lactate Dehydrogenase Total Creatine Kinase C-Reactive Protein Total Protein Albumin Prealbumin CA 19-9 Antigen Folate PTH Intact Urine WBC (Auto) Urine Creatinine Urine Chloride Urine Total Protein Fluid Glucose Fluid Total Protein Vancomycin Trough Miscellaneous Test Crossmatch 06/01/18 06/01/18 06/02/18 11:10 17:56 00:15 WBC RBC Hgb Hct MCV MCHC RDW Plt Count Lymph % (Auto) [place] % (Auto) Lymph # [place] # Seg Neutrophils % Seg Neuts % (Manual) Lymphocytes % (Manual) Seg Neutrophils # Seg Neutrophils # Man Lymphocytes # (Manual) PT INR APTT POC ABG pH POC ABG pCO2 POC ABG pO2 Sodium Potassium Chloride Carbon Dioxide BUN Creatinine Glucose POC Glucose 123 H 126 H 135 H Lactic Acid Calcium Phosphorus Magnesium Iron TIBC AST ALT Alkaline Phosphatase Lactate Dehydrogenase Total Creatine Kinase C-Reactive Protein Total Protein Albumin Prealbumin CA 19-9 Antigen Folate PTH Intact Urine WBC (Auto) Urine Creatinine Urine Chloride Urine Total Protein Fluid Glucose Fluid Total Protein Vancomycin Trough Miscellaneous Test Crossmatch 06/02/18 06/02/18 06/02/18 05:23 12:42 13:05 WBC RBC Hgb Hct MCV MCHC RDW Plt Count Lymph % (Auto) [place] % (Auto) Lymph # [place] # Seg Neutrophils % Seg Neuts % (Manual) Lymphocytes % (Manual) Seg Neutrophils # Seg Neutrophils # Man Lymphocytes # (Manual) PT 17.1 H INR 1.34 H APTT POC ABG pH POC ABG pCO2 POC ABG pO2 Sodium Potassium Chloride Carbon Dioxide BUN Creatinine Glucose POC Glucose 135 H 142 H Lactic Acid Calcium Phosphorus Magnesium Iron TIBC AST ALT Alkaline Phosphatase Lactate Dehydrogenase Total Creatine Kinase C-Reactive Protein Total Protein Albumin Prealbumin CA 19-9 Antigen Folate PTH Intact Urine WBC (Auto) Urine Creatinine Urine Chloride Urine Total Protein Fluid Glucose Fluid Total Protein Vancomycin Trough Miscellaneous Test Crossmatch 06/02/18 06/02/18 06/03/18 Unknown Unknown 00:54 WBC 20.8 H RBC 2.67 L Hgb 7.7 L Hct 23.0 L MCV MCHC RDW Plt Count 500 H Lymph % (Auto) [place] % (Auto) Lymph # [place] # Seg Neutrophils % Seg Neuts % (Manual) Lymphocytes % (Manual) Seg Neutrophils # Seg Neutrophils # Man Lymphocytes # (Manual) PT INR APTT POC ABG pH POC ABG pCO2 POC ABG pO2 Sodium 136 L Potassium 3.5 L Chloride 96.9 L Carbon Dioxide BUN 62 H Creatinine 4.9 H Glucose 133 H POC Glucose 125 H Lactic Acid Calcium 7.2 L Phosphorus 5.00 H Magnesium Iron TIBC AST 46 H ALT 66 H Alkaline Phosphatase Lactate Dehydrogenase Total Creatine Kinase C-Reactive Protein Total Protein 5.7 L Albumin 1.5 L Prealbumin CA 19-9 Antigen Folate PTH Intact Urine WBC (Auto) Urine Creatinine Urine Chloride Urine Total Protein Fluid Glucose Fluid Total Protein Vancomycin Trough Miscellaneous Test Crossmatch 06/03/18 06/03/18 06/03/18 03:31 09:18 09:18 WBC RBC Hgb Hct MCV MCHC RDW Plt Count Lymph % (Auto) [place] % (Auto) Lymph # [place] # Seg Neutrophils % Seg Neuts % (Manual) Lymphocytes % (Manual) Seg Neutrophils # Seg Neutrophils # Man Lymphocytes # (Manual) PT 17.1 H INR 1.34 H APTT POC ABG pH POC ABG pCO2 POC ABG pO2 Sodium 136 L Potassium Chloride Carbon Dioxide BUN 41 H Creatinine 3.4 H Glucose 129 H POC Glucose Lactic Acid Calcium 7.4 L Phosphorus Magnesium Iron TIBC AST ALT Alkaline Phosphatase Lactate Dehydrogenase Total Creatine Kinase C-Reactive Protein 11.10 H Total Protein Albumin Prealbumin CA 19-9 Antigen Folate PTH Intact Urine WBC (Auto) Urine Creatinine Urine Chloride Urine Total Protein Fluid Glucose Fluid Total Protein Vancomycin Trough Miscellaneous Test Crossmatch 06/03/18 06/03/18 06/03/18 16:07 21:18 Unknown WBC RBC Hgb Hct MCV MCHC RDW Plt Count Lymph % (Auto) [place] % (Auto) Lymph # [place] # Seg Neutrophils % Seg Neuts % (Manual) Lymphocytes % (Manual) Seg Neutrophils # Seg Neutrophils # Man Lymphocytes # (Manual) PT INR APTT POC ABG pH POC ABG pCO2 POC ABG pO2 Sodium Potassium Chloride Carbon Dioxide BUN Creatinine Glucose POC Glucose 144 H 128 H Lactic Acid Calcium Phosphorus Magnesium Iron TIBC AST ALT Alkaline Phosphatase Lactate Dehydrogenase Total Creatine Kinase C-Reactive Protein Total Protein Albumin Prealbumin CA 19-9 Antigen Folate PTH Intact Urine WBC (Auto) Urine Creatinine Urine Chloride Urine Total Protein Fluid Glucose 10 L Fluid Total Protein 3.7 L Vancomycin Trough Miscellaneous Test Crossmatch 06/04/18 06/04/18 06/04/18 04:31 06:14 11:38 WBC RBC Hgb Hct MCV MCHC RDW Plt Count Lymph % (Auto) [place] % (Auto) Lymph # [place] # Seg Neutrophils % Seg Neuts % (Manual) Lymphocytes % (Manual) Seg Neutrophils # Seg Neutrophils # Man Lymphocytes # (Manual) PT INR APTT POC ABG pH POC ABG pCO2 POC ABG pO2 Sodium Potassium Chloride Carbon Dioxide BUN 55 H Creatinine 3.7 H Glucose 151 H POC Glucose 145 H 129 H Lactic Acid Calcium 7.8 L Phosphorus 4.60 H Magnesium Iron TIBC AST ALT Alkaline Phosphatase Lactate Dehydrogenase Total Creatine Kinase C-Reactive Protein Total Protein Albumin Prealbumin CA 19-9 Antigen Folate PTH Intact Urine WBC (Auto) Urine Creatinine Urine Chloride Urine Total Protein Fluid Glucose Fluid Total Protein Vancomycin Trough Miscellaneous Test Crossmatch 06/04/18 06/04/18 06/04/18 17:09 20:00 21:29 WBC RBC Hgb 8.8 L Hct 27.3 L MCV MCHC RDW Plt Count Lymph % (Auto) [place] % (Auto) Lymph # [place] # Seg Neutrophils % Seg Neuts % (Manual) Lymphocytes % (Manual) Seg Neutrophils # Seg Neutrophils # Man Lymphocytes # (Manual) PT INR APTT POC ABG pH POC ABG pCO2 POC ABG pO2 Sodium Potassium Chloride Carbon Dioxide BUN Creatinine Glucose POC Glucose 142 H 130 H Lactic Acid Calcium Phosphorus Magnesium Iron TIBC AST ALT Alkaline Phosphatase Lactate Dehydrogenase Total Creatine Kinase C-Reactive Protein Total Protein Albumin Prealbumin CA 19-9 Antigen Folate PTH Intact Urine WBC (Auto) Urine Creatinine Urine Chloride Urine Total Protein Fluid Glucose Fluid Total Protein Vancomycin Trough Miscellaneous Test Crossmatch 06/05/18 06/05/18 06/05/18 06:30 07:00 07:00 WBC 19.3 H RBC 2.94 L Hgb 8.3 L Hct 25.6 L MCV MCHC RDW 15.7 H Plt Count 568 H Lymph % (Auto) 4.7 L [place] % (Auto) Lymph # 0.9 L [place] # 1.1 H Seg Neutrophils % 88.9 H Seg Neuts % (Manual) Lymphocytes % (Manual) Seg Neutrophils # 17.2 H Seg Neutrophils # Man Lymphocytes # (Manual) PT INR APTT POC ABG pH POC ABG pCO2 POC ABG pO2 Sodium Potassium 3.4 L D Chloride Carbon Dioxide BUN 67 H Creatinine 3.6 H Glucose 145 H POC Glucose 153 H Lactic Acid Calcium 7.9 L Phosphorus 4.60 H Magnesium Iron TIBC AST ALT Alkaline Phosphatase Lactate Dehydrogenase Total Creatine Kinase C-Reactive Protein Total Protein Albumin Prealbumin CA 19-9 Antigen Folate PTH Intact Urine WBC (Auto) Urine Creatinine Urine Chloride Urine Total Protein Fluid Glucose Fluid Total Protein Vancomycin Trough Miscellaneous Test Crossmatch 06/05/18 06/05/18 06/06/18 12:10 16:01 06:39 WBC RBC Hgb Hct MCV MCHC RDW Plt Count Lymph % (Auto) [place] % (Auto) Lymph # [place] # Seg Neutrophils % Seg Neuts % (Manual) Lymphocytes % (Manual) Seg Neutrophils # Seg Neutrophils # Man Lymphocytes # (Manual) PT INR APTT POC ABG pH POC ABG pCO2 POC ABG pO2 Sodium Potassium Chloride Carbon Dioxide BUN Creatinine Glucose POC Glucose 150 H 129 H 131 H Lactic Acid Calcium Phosphorus Magnesium Iron TIBC AST ALT Alkaline Phosphatase Lactate Dehydrogenase Total Creatine Kinase C-Reactive Protein Total Protein Albumin Prealbumin CA 19-9 Antigen Folate PTH Intact Urine WBC (Auto) Urine Creatinine Urine Chloride Urine Total Protein Fluid Glucose Fluid Total Protein Vancomycin Trough Miscellaneous Test Crossmatch 06/06/18 06/06/18 06/06/18 07:14 07:14 07:14 WBC 16.5 H RBC 2.84 L Hgb 8.1 L Hct 25.2 L MCV MCHC RDW 16.4 H Plt Count 526 H Lymph % (Auto) 6.5 L [place] % (Auto) Lymph # 1.1 L [place] # 1.2 H Seg Neutrophils % 85.3 H Seg Neuts % (Manual) Lymphocytes % (Manual) Seg Neutrophils # 14.1 H Seg Neutrophils # Man Lymphocytes # (Manual) PT INR APTT POC ABG pH POC ABG pCO2 POC ABG pO2 Sodium Potassium Chloride 109.1 H Carbon Dioxide 21 L BUN 76 H Creatinine 3.5 H Glucose 111 H POC Glucose Lactic Acid Calcium 8.1 L Phosphorus Magnesium Iron TIBC AST ALT Alkaline Phosphatase Lactate Dehydrogenase Total Creatine Kinase C-Reactive Protein 4.70 H Total Protein Albumin Prealbumin CA 19-9 Antigen Folate PTH Intact Urine WBC (Auto) Urine Creatinine Urine Chloride Urine Total Protein Fluid Glucose Fluid Total Protein Vancomycin Trough Miscellaneous Test Crossmatch 06/06/18 06/06/18 06/06/18 11:15 18:00 23:58 WBC RBC Hgb Hct MCV MCHC RDW Plt Count Lymph % (Auto) [place] % (Auto) Lymph # [place] # Seg Neutrophils % Seg Neuts % (Manual) Lymphocytes % (Manual) Seg Neutrophils # Seg Neutrophils # Man Lymphocytes # (Manual) PT INR APTT POC ABG pH POC ABG pCO2 POC ABG pO2 Sodium Potassium Chloride Carbon Dioxide BUN Creatinine Glucose POC Glucose 127 H 130 H 114 H Lactic Acid Calcium Phosphorus Magnesium Iron TIBC AST ALT Alkaline Phosphatase Lactate Dehydrogenase Total Creatine Kinase C-Reactive Protein Total Protein Albumin Prealbumin CA 19-9 Antigen Folate PTH Intact Urine WBC (Auto) Urine Creatinine Urine Chloride Urine Total Protein Fluid Glucose Fluid Total Protein Vancomycin Trough Miscellaneous Test Crossmatch 06/07/18 06/07/18 06/07/18 05:45 05:45 05:54 WBC 15.5 H RBC 2.60 L Hgb 7.4 L Hct 23.1 L MCV MCHC RDW 16.5 H Plt Count 506 H Lymph % (Auto) 5.3 L [place] % (Auto) Lymph # 0.8 L [place] # 1.0 H Seg Neutrophils % 86.6 H Seg Neuts % (Manual) Lymphocytes % (Manual) Seg Neutrophils # 13.4 H Seg Neutrophils # Man Lymphocytes # (Manual) PT INR APTT POC ABG pH POC ABG pCO2 POC ABG pO2 Sodium Potassium Chloride 108.4 H Carbon Dioxide BUN 84 H Creatinine 3.5 H Glucose 119 H POC Glucose 114 H Lactic Acid Calcium 8.1 L Phosphorus 5.10 H Magnesium Iron TIBC AST ALT Alkaline Phosphatase Lactate Dehydrogenase Total Creatine Kinase C-Reactive Protein Total Protein Albumin Prealbumin CA 19-9 Antigen Folate PTH Intact Urine WBC (Auto) Urine Creatinine Urine Chloride Urine Total Protein Fluid Glucose Fluid Total Protein Vancomycin Trough Miscellaneous Test Crossmatch 06/07/18 06/08/18 06/08/18 12:15 05:05 05:24 WBC RBC Hgb Hct MCV MCHC RDW Plt Count Lymph % (Auto) [place] % (Auto) Lymph # [place] # Seg Neutrophils % Seg Neuts % (Manual) Lymphocytes % (Manual) Seg Neutrophils # Seg Neutrophils # Man Lymphocytes # (Manual) PT INR APTT POC ABG pH POC ABG pCO2 POC ABG pO2 Sodium 148 H Potassium Chloride 112.4 H Carbon Dioxide BUN 89 H Creatinine 3.4 H Glucose 120 H POC Glucose 148 H 115 H Lactic Acid Calcium 7.9 L Phosphorus Magnesium Iron TIBC AST ALT Alkaline Phosphatase Lactate Dehydrogenase Total Creatine Kinase C-Reactive Protein Total Protein Albumin Prealbumin CA 19-9 Antigen Folate PTH Intact Urine WBC (Auto) Urine Creatinine Urine Chloride Urine Total Protein Fluid Glucose Fluid Total Protein Vancomycin Trough Miscellaneous Test Crossmatch 06/08/18 06/08/18 06/08/18 21:36 21:43 21:43 WBC RBC 2.98 L Hgb 8.8 L Hct 26.6 L MCV MCHC RDW 16.7 H Plt Count 463 H Lymph % (Auto) 7.9 L [place] % (Auto) Lymph # 0.8 L [place] # Seg Neutrophils % 84.8 H Seg Neuts % (Manual) Lymphocytes % (Manual) Seg Neutrophils # 8.6 H Seg Neutrophils # Man Lymphocytes # (Manual) PT INR APTT POC ABG pH POC ABG pCO2 POC ABG pO2 Sodium Potassium Chloride Carbon Dioxide BUN Creatinine Glucose POC Glucose Lactic Acid Calcium Phosphorus Magnesium Iron TIBC AST ALT Alkaline Phosphatase Lactate Dehydrogenase 297 H Total Creatine Kinase C-Reactive Protein Total Protein Albumin Prealbumin CA 19-9 Antigen 57 H Folate PTH Intact Urine WBC (Auto) Urine Creatinine Urine Chloride Urine Total Protein Fluid Glucose Fluid Total Protein Vancomycin Trough Miscellaneous Test Crossmatch 06/09/18 06/09/18 06/09/18 00:05 05:34 05:50 WBC RBC Hgb Hct MCV MCHC RDW Plt Count Lymph % (Auto) [place] % (Auto) Lymph # [place] # Seg Neutrophils % Seg Neuts % (Manual) Lymphocytes % (Manual) Seg Neutrophils # Seg Neutrophils # Man Lymphocytes # (Manual) PT INR APTT POC ABG pH POC ABG pCO2 POC ABG pO2 Sodium 153 H Potassium Chloride 117.3 H Carbon Dioxide BUN 84 H Creatinine 3.2 H Glucose 117 H POC Glucose 140 H 146 H Lactic Acid Calcium 7.9 L Phosphorus Magnesium Iron TIBC AST ALT Alkaline Phosphatase Lactate Dehydrogenase Total Creatine Kinase C-Reactive Protein Total Protein Albumin Prealbumin CA 19-9 Antigen Folate PTH Intact Urine WBC (Auto) Urine Creatinine Urine Chloride Urine Total Protein Fluid Glucose Fluid Total Protein Vancomycin Trough Miscellaneous Test Crossmatch 06/09/18 06/09/18 06/09/18 05:50 07:37 10:34 WBC RBC 2.32 L Hgb 6.8 L Hct 20.7 L MCV MCHC RDW 16.7 H Plt Count Lymph % (Auto) [place] % (Auto) Lymph # [place] # Seg Neutrophils % Seg Neuts % (Manual) Lymphocytes % (Manual) Seg Neutrophils # Seg Neutrophils # Man Lymphocytes # (Manual) PT INR APTT POC ABG pH POC ABG pCO2 POC ABG pO2 Sodium 149 H Potassium Chloride 114.6 H Carbon Dioxide BUN 84 H Creatinine 3.1 H Glucose 137 H POC Glucose Lactic Acid Calcium 7.7 L Phosphorus Magnesium Iron TIBC AST ALT Alkaline Phosphatase Lactate Dehydrogenase Total Creatine Kinase C-Reactive Protein Total Protein Albumin Prealbumin CA 19-9 Antigen Folate PTH Intact Urine WBC (Auto) Urine Creatinine Urine Chloride Urine Total Protein Fluid Glucose Fluid Total Protein Vancomycin Trough Miscellaneous Test Flexitest 1 H Crossmatch 06/09/18 06/09/18 06/09/18 10:41 11:56 13:24 WBC RBC 2.43 L Hgb 7.2 L Hct 21.6 L MCV MCHC RDW 16.8 H Plt Count Lymph % (Auto) [place] % (Auto) Lymph # [place] # Seg Neutrophils % Seg Neuts % (Manual) Lymphocytes % (Manual) Seg Neutrophils # Seg Neutrophils # Man Lymphocytes # (Manual) PT INR APTT POC ABG pH POC ABG pCO2 POC ABG pO2 Sodium Potassium Chloride Carbon Dioxide BUN Creatinine Glucose POC Glucose 141 H Lactic Acid Calcium Phosphorus Magnesium Iron TIBC AST ALT Alkaline Phosphatase Lactate Dehydrogenase Total Creatine Kinase C-Reactive Protein Total Protein Albumin Prealbumin CA 19-9 Antigen Folate PTH Intact Urine WBC (Auto) Urine Creatinine Urine Chloride Urine Total Protein Fluid Glucose Fluid Total Protein Vancomycin Trough Miscellaneous Test Crossmatch See Detail 06/09/18 06/09/18 06/10/18 18:18 23:13 05:26 WBC RBC Hgb Hct MCV MCHC RDW Plt Count Lymph % (Auto) [place] % (Auto) Lymph # [place] # Seg Neutrophils % Seg Neuts % (Manual) Lymphocytes % (Manual) Seg Neutrophils # Seg Neutrophils # Man Lymphocytes # (Manual) PT INR APTT POC ABG pH POC ABG pCO2 POC ABG pO2 Sodium 148 H Potassium Chloride 114.7 H Carbon Dioxide 21 L BUN 79 H Creatinine 3.2 H Glucose 121 H POC Glucose 156 H 163 H Lactic Acid Calcium 7.8 L Phosphorus Magnesium 1.60 L Iron TIBC AST ALT Alkaline Phosphatase Lactate Dehydrogenase Total Creatine Kinase C-Reactive Protein Total Protein Albumin Prealbumin CA 19-9 Antigen Folate PTH Intact Urine WBC (Auto) Urine Creatinine Urine Chloride Urine Total Protein Fluid Glucose Fluid Total Protein Vancomycin Trough Miscellaneous Test Crossmatch 06/10/18 06/10/18 06/10/18 05:26 05:31 17:15 WBC 11.1 H RBC 3.07 L Hgb 9.1 L Hct 27.6 L D MCV MCHC RDW 17.4 H Plt Count Lymph % (Auto) [place] % (Auto) Lymph # [place] # Seg Neutrophils % Seg Neuts % (Manual) Lymphocytes % (Manual) Seg Neutrophils # Seg Neutrophils # Man Lymphocytes # (Manual) PT INR APTT POC ABG pH POC ABG pCO2 POC ABG pO2 Sodium Potassium Chloride Carbon Dioxide BUN Creatinine Glucose POC Glucose 128 H Lactic Acid Calcium Phosphorus Magnesium Iron TIBC AST ALT Alkaline Phosphatase Lactate Dehydrogenase Total Creatine Kinase C-Reactive Protein 3.60 H Total Protein Albumin Prealbumin CA 19-9 Antigen Folate PTH Intact Urine WBC (Auto) Urine Creatinine Urine Chloride Urine Total Protein Fluid Glucose Fluid Total Protein Vancomycin Trough Miscellaneous Test Crossmatch 06/11/18 06/11/18 06/11/18 01:13 05:41 05:41 WBC 14.6 H RBC 3.40 L Hgb 9.8 L Hct 30.7 L MCV MCHC RDW 18.1 H Plt Count Lymph % (Auto) [place] % (Auto) Lymph # [place] # Seg Neutrophils % Seg Neuts % (Manual) Lymphocytes % (Manual) Seg Neutrophils # Seg Neutrophils # Man Lymphocytes # (Manual) PT INR APTT POC ABG pH POC ABG pCO2 POC ABG pO2 Sodium Potassium Chloride 110.8 H Carbon Dioxide 18 L BUN 77 H Creatinine 3.0 H Glucose 116 H POC Glucose 126 H Lactic Acid Calcium 7.9 L Phosphorus Magnesium Iron TIBC AST ALT Alkaline Phosphatase Lactate Dehydrogenase Total Creatine Kinase C-Reactive Protein Total Protein Albumin Prealbumin CA 19-9 Antigen Folate PTH Intact Urine WBC (Auto) Urine Creatinine Urine Chloride Urine Total Protein Fluid Glucose Fluid Total Protein Vancomycin Trough Miscellaneous Test Crossmatch 06/11/18 06/11/18 06/11/18 06:20 07:41 07:41 WBC RBC Hgb Hct MCV MCHC RDW Plt Count Lymph % (Auto) [place] % (Auto) Lymph # [place] # Seg Neutrophils % Seg Neuts % (Manual) Lymphocytes % (Manual) Seg Neutrophils # Seg Neutrophils # Man Lymphocytes # (Manual) PT INR APTT POC ABG pH POC ABG pCO2 POC ABG pO2 Sodium Potassium Chloride Carbon Dioxide BUN Creatinine Glucose POC Glucose 136 H Lactic Acid Calcium Phosphorus Magnesium Iron TIBC AST ALT Alkaline Phosphatase Lactate Dehydrogenase Total Creatine Kinase C-Reactive Protein Total Protein Albumin Prealbumin CA 19-9 Antigen Folate PTH Intact Urine WBC (Auto) 10.0 H Urine Creatinine 41.2 H Urine Chloride 49.2 L Urine Total Protein 142 H Fluid Glucose Fluid Total Protein Vancomycin Trough Miscellaneous Test Crossmatch 06/11/18 06/12/18 06/12/18 18:35 00:34 04:12 WBC RBC 3.18 L Hgb 9.5 L Hct 28.7 L MCV MCHC RDW 18.5 H Plt Count Lymph % (Auto) 8.1 L [place] % (Auto) Lymph # 0.9 L [place] # Seg Neutrophils % 84.6 H Seg Neuts % (Manual) Lymphocytes % (Manual) Seg Neutrophils # 9.1 H Seg Neutrophils # Man Lymphocytes # (Manual) PT INR APTT POC ABG pH POC ABG pCO2 POC ABG pO2 Sodium Potassium Chloride Carbon Dioxide BUN Creatinine Glucose POC Glucose 125 H 129 H Lactic Acid Calcium Phosphorus Magnesium Iron TIBC AST ALT Alkaline Phosphatase Lactate Dehydrogenase Total Creatine Kinase C-Reactive Protein Total Protein Albumin Prealbumin CA 19-9 Antigen Folate PTH Intact Urine WBC (Auto) Urine Creatinine Urine Chloride Urine Total Protein Fluid Glucose Fluid Total Protein Vancomycin Trough Miscellaneous Test Crossmatch 06/12/18 06/12/18 06/12/18 04:12 06:30 11:43 WBC RBC Hgb Hct MCV MCHC RDW Plt Count Lymph % (Auto) [place] % (Auto) Lymph # [place] # Seg Neutrophils % Seg Neuts % (Manual) Lymphocytes % (Manual) Seg Neutrophils # Seg Neutrophils # Man Lymphocytes # (Manual) PT INR APTT POC ABG pH POC ABG pCO2 POC ABG pO2 Sodium Potassium Chloride 108.5 H Carbon Dioxide 21 L BUN 72 H Creatinine 3.0 H Glucose 122 H POC Glucose 129 H 126 H Lactic Acid Calcium 7.8 L Phosphorus Magnesium Iron TIBC AST 45 H ALT Alkaline Phosphatase 200 H Lactate Dehydrogenase Total Creatine Kinase 34 L C-Reactive Protein Total Protein Albumin 1.7 L Prealbumin CA 19-9 Antigen Folate PTH Intact Urine WBC (Auto) Urine Creatinine Urine Chloride Urine Total Protein Fluid Glucose Fluid Total Protein Vancomycin Trough Miscellaneous Test Crossmatch 06/12/18 06/12/18 06/13/18 16:00 23:56 03:44 WBC RBC Hgb Hct MCV MCHC RDW Plt Count Lymph % (Auto) [place] % (Auto) Lymph # [place] # Seg Neutrophils % Seg Neuts % (Manual) Lymphocytes % (Manual) Seg Neutrophils # Seg Neutrophils # Man Lymphocytes # (Manual) PT INR APTT POC ABG pH POC ABG pCO2 POC ABG pO2 Sodium Potassium Chloride Carbon Dioxide BUN Creatinine Glucose POC Glucose 123 H 128 H 121 H Lactic Acid Calcium Phosphorus Magnesium Iron TIBC AST ALT Alkaline Phosphatase Lactate Dehydrogenase Total Creatine Kinase C-Reactive Protein Total Protein Albumin Prealbumin CA 19-9 Antigen Folate PTH Intact Urine WBC (Auto) Urine Creatinine Urine Chloride Urine Total Protein Fluid Glucose Fluid Total Protein Vancomycin Trough Miscellaneous Test Crossmatch 06/13/18 06/13/18 06/14/18 05:59 11:29 01:08 WBC RBC Hgb Hct MCV MCHC RDW Plt Count Lymph % (Auto) [place] % (Auto) Lymph # [place] # Seg Neutrophils % Seg Neuts % (Manual) Lymphocytes % (Manual) Seg Neutrophils # Seg Neutrophils # Man Lymphocytes # (Manual) PT INR APTT POC ABG pH POC ABG pCO2 POC ABG pO2 Sodium 134 L Potassium Chloride Carbon Dioxide 20 L BUN 69 H Creatinine 2.9 H Glucose 113 H POC Glucose 124 H 128 H Lactic Acid Calcium 7.8 L Phosphorus Magnesium Iron TIBC AST ALT Alkaline Phosphatase Lactate Dehydrogenase Total Creatine Kinase C-Reactive Protein Total Protein Albumin Prealbumin CA 19-9 Antigen Folate PTH Intact Urine WBC (Auto) Urine Creatinine Urine Chloride Urine Total Protein Fluid Glucose Fluid Total Protein Vancomycin Trough Miscellaneous Test Crossmatch 06/14/18 06/14/18 06/14/18 06:42 06:42 09:50 WBC 11.3 H RBC 3.02 L Hgb 8.8 L Hct 27.3 L MCV MCHC RDW 18.6 H Plt Count Lymph % (Auto) [place] % (Auto) Lymph # [place] # Seg Neutrophils % Seg Neuts % (Manual) Lymphocytes % (Manual) Seg Neutrophils # Seg Neutrophils # Man Lymphocytes # (Manual) PT 16.3 H INR 1.24 H APTT POC ABG pH POC ABG pCO2 POC ABG pO2 Sodium 132 L Potassium Chloride Carbon Dioxide 19 L BUN 71 H Creatinine 3.1 H Glucose POC Glucose Lactic Acid Calcium 7.8 L Phosphorus Magnesium Iron TIBC AST ALT Alkaline Phosphatase Lactate Dehydrogenase Total Creatine Kinase C-Reactive Protein Total Protein Albumin Prealbumin CA 19-9 Antigen Folate PTH Intact Urine WBC (Auto) Urine Creatinine Urine Chloride Urine Total Protein Fluid Glucose Fluid Total Protein Vancomycin Trough Miscellaneous Test Crossmatch 06/14/18 06/14/18 06/15/18 12:31 17:04 01:18 WBC RBC Hgb Hct MCV MCHC RDW Plt Count Lymph % (Auto) [place] % (Auto) Lymph # [place] # Seg Neutrophils % Seg Neuts % (Manual) Lymphocytes % (Manual) Seg Neutrophils # Seg Neutrophils # Man Lymphocytes # (Manual) PT INR APTT POC ABG pH POC ABG pCO2 POC ABG pO2 Sodium Potassium Chloride Carbon Dioxide BUN Creatinine Glucose POC Glucose 125 H 109 H 124 H Lactic Acid Calcium Phosphorus Magnesium Iron TIBC AST ALT Alkaline Phosphatase Lactate Dehydrogenase Total Creatine Kinase C-Reactive Protein Total Protein Albumin Prealbumin CA 19-9 Antigen Folate PTH Intact Urine WBC (Auto) Urine Creatinine Urine Chloride Urine Total Protein Fluid Glucose Fluid Total Protein Vancomycin Trough Miscellaneous Test Crossmatch 06/15/18 06/15/18 06/15/18 05:27 06:34 11:42 WBC RBC Hgb Hct MCV MCHC RDW Plt Count Lymph % (Auto) [place] % (Auto) Lymph # [place] # Seg Neutrophils % Seg Neuts % (Manual) Lymphocytes % (Manual) Seg Neutrophils # Seg Neutrophils # Man Lymphocytes # (Manual) PT INR APTT POC ABG pH POC ABG pCO2 POC ABG pO2 Sodium 134 L Potassium Chloride Carbon Dioxide 17 L BUN 77 H Creatinine 3.2 H Glucose 110 H POC Glucose 116 H 131 H Lactic Acid Calcium 8.1 L Phosphorus 6.20 H D Magnesium Iron TIBC AST ALT Alkaline Phosphatase Lactate Dehydrogenase Total Creatine Kinase C-Reactive Protein Total Protein Albumin Prealbumin CA 19-9 Antigen Folate PTH Intact Urine WBC (Auto) Urine Creatinine Urine Chloride Urine Total Protein Fluid Glucose Fluid Total Protein Vancomycin Trough Miscellaneous Test Crossmatch 06/16/18 06/16/18 06/16/18 00:57 05:10 06:07 WBC RBC Hgb Hct MCV MCHC RDW Plt Count Lymph % (Auto) [place] % (Auto) Lymph # [place] # Seg Neutrophils % Seg Neuts % (Manual) Lymphocytes % (Manual) Seg Neutrophils # Seg Neutrophils # Man Lymphocytes # (Manual) PT INR APTT POC ABG pH POC ABG pCO2 POC ABG pO2 Sodium 132 L Potassium Chloride Carbon Dioxide 19 L BUN 83 H Creatinine 3.2 H Glucose 113 H POC Glucose 137 H 109 H Lactic Acid Calcium 7.8 L Phosphorus 6.10 H Magnesium Iron TIBC AST ALT Alkaline Phosphatase Lactate Dehydrogenase Total Creatine Kinase C-Reactive Protein Total Protein Albumin Prealbumin CA 19-9 Antigen Folate PTH Intact Urine WBC (Auto) Urine Creatinine Urine Chloride Urine Total Protein Fluid Glucose Fluid Total Protein Vancomycin Trough Miscellaneous Test Crossmatch 06/16/18 06/16/18 06/17/18 11:51 15:46 00:02 WBC RBC Hgb Hct MCV MCHC RDW Plt Count Lymph % (Auto) [place] % (Auto) Lymph # [place] # Seg Neutrophils % Seg Neuts % (Manual) Lymphocytes % (Manual) Seg Neutrophils # Seg Neutrophils # Man Lymphocytes # (Manual) PT INR APTT POC ABG pH POC ABG pCO2 POC ABG pO2 Sodium Potassium Chloride Carbon Dioxide BUN Creatinine Glucose POC Glucose 126 H 127 H 107 H Lactic Acid Calcium Phosphorus Magnesium Iron TIBC AST ALT Alkaline Phosphatase Lactate Dehydrogenase Total Creatine Kinase C-Reactive Protein Total Protein Albumin Prealbumin CA 19-9 Antigen Folate PTH Intact Urine WBC (Auto) Urine Creatinine Urine Chloride Urine Total Protein Fluid Glucose Fluid Total Protein Vancomycin Trough Miscellaneous Test Crossmatch 06/17/18 06/17/18 06/17/18 05:52 11:46 16:58 WBC RBC Hgb Hct MCV MCHC RDW Plt Count Lymph % (Auto) [place] % (Auto) Lymph # [place] # Seg Neutrophils % Seg Neuts % (Manual) Lymphocytes % (Manual) Seg Neutrophils # Seg Neutrophils # Man Lymphocytes # (Manual) PT INR APTT POC ABG pH POC ABG pCO2 POC ABG pO2 Sodium 133 L Potassium Chloride Carbon Dioxide 17 L BUN 87 H Creatinine 3.2 H Glucose POC Glucose 129 H 140 H Lactic Acid Calcium 8.1 L Phosphorus 6.50 H Magnesium Iron TIBC AST ALT Alkaline Phosphatase Lactate Dehydrogenase Total Creatine Kinase C-Reactive Protein Total Protein Albumin Prealbumin 0.130 L CA 19-9 Antigen Folate PTH Intact Urine WBC (Auto) Urine Creatinine Urine Chloride Urine Total Protein Fluid Glucose Fluid Total Protein Vancomycin Trough Miscellaneous Test Crossmatch 06/18/18 06/18/18 06/18/18 04:04 04:04 14:15 WBC RBC 3.00 L Hgb 8.9 L Hct 26.5 L MCV MCHC RDW 17.8 H Plt Count 494 H Lymph % (Auto) 7.9 L [place] % (Auto) 9.3 H Lymph # 0.8 L [place] # 1.0 H Seg Neutrophils % 81.2 H Seg Neuts % (Manual) Lymphocytes % (Manual) Seg Neutrophils # 8.6 H Seg Neutrophils # Man Lymphocytes # (Manual) PT INR APTT POC ABG pH POC ABG pCO2 POC ABG pO2 Sodium 128 L Potassium Chloride Carbon Dioxide 18 L BUN 88 H Creatinine 3.1 H Glucose 129 H POC Glucose 143 H Lactic Acid Calcium 7.8 L Phosphorus 6.20 H Magnesium Iron TIBC AST ALT Alkaline Phosphatase Lactate Dehydrogenase Total Creatine Kinase C-Reactive Protein Total Protein Albumin Prealbumin CA 19-9 Antigen Folate PTH Intact Urine WBC (Auto) Urine Creatinine Urine Chloride Urine Total Protein Fluid Glucose Fluid Total Protein Vancomycin Trough Miscellaneous Test Crossmatch 06/18/18 06/19/18 06/19/18 17:54 01:45 06:20 WBC RBC Hgb Hct MCV MCHC RDW Plt Count Lymph % (Auto) [place] % (Auto) Lymph # [place] # Seg Neutrophils % Seg Neuts % (Manual) Lymphocytes % (Manual) Seg Neutrophils # Seg Neutrophils # Man Lymphocytes # (Manual) PT INR APTT POC ABG pH POC ABG pCO2 POC ABG pO2 Sodium Potassium Chloride 93.9 L Carbon Dioxide BUN 78 H Creatinine 2.8 H Glucose POC Glucose 138 H 141 H Lactic Acid Calcium 7.1 L Phosphorus 6.40 H Magnesium Iron TIBC AST ALT Alkaline Phosphatase Lactate Dehydrogenase Total Creatine Kinase C-Reactive Protein Total Protein Albumin Prealbumin CA 19-9 Antigen Folate PTH Intact Urine WBC (Auto) Urine Creatinine Urine Chloride Urine Total Protein Fluid Glucose Fluid Total Protein Vancomycin Trough Miscellaneous Test Crossmatch 06/19/18 06/19/18 06/19/18 06:49 07:59 16:32 WBC RBC Hgb Hct MCV MCHC RDW Plt Count Lymph % (Auto) [place] % (Auto) Lymph # [place] # Seg Neutrophils % Seg Neuts % (Manual) Lymphocytes % (Manual) Seg Neutrophils # Seg Neutrophils # Man Lymphocytes # (Manual) PT INR APTT POC ABG pH POC ABG pCO2 POC ABG pO2 Sodium Potassium Chloride Carbon Dioxide BUN 80 H Creatinine 2.9 H Glucose 123 H POC Glucose 130 H 134 H Lactic Acid Calcium 7.7 L Phosphorus Magnesium Iron TIBC AST ALT Alkaline Phosphatase Lactate Dehydrogenase Total Creatine Kinase C-Reactive Protein Total Protein Albumin Prealbumin CA 19-9 Antigen Folate PTH Intact Urine WBC (Auto) Urine Creatinine Urine Chloride Urine Total Protein Fluid Glucose Fluid Total Protein Vancomycin Trough Miscellaneous Test Crossmatch 06/20/18 06/20/18 06/20/18 00:11 05:55 05:55 WBC RBC 2.73 L Hgb 8.0 L Hct 24.2 L MCV MCHC RDW 17.4 H Plt Count 512 H Lymph % (Auto) 12.3 L [place] % (Auto) 11.3 H Lymph # 1.1 L [place] # 1.0 H Seg Neutrophils % 74.8 H Seg Neuts % (Manual) Lymphocytes % (Manual) Seg Neutrophils # Seg Neutrophils # Man Lymphocytes # (Manual) PT INR APTT POC ABG pH POC ABG pCO2 POC ABG pO2 Sodium Potassium Chloride Carbon Dioxide 32 H BUN 70 H Creatinine 2.5 H Glucose 105 H POC Glucose 131 H Lactic Acid Calcium 8.0 L Phosphorus Magnesium Iron TIBC AST ALT Alkaline Phosphatase Lactate Dehydrogenase Total Creatine Kinase C-Reactive Protein Total Protein Albumin Prealbumin CA 19-9 Antigen Folate PTH Intact Urine WBC (Auto) Urine Creatinine Urine Chloride Urine Total Protein Fluid Glucose Fluid Total Protein Vancomycin Trough Miscellaneous Test Crossmatch 06/20/18 06/20/18 06/20/18 05:55 12:10 16:01 WBC RBC Hgb Hct MCV MCHC RDW Plt Count Lymph % (Auto) [place] % (Auto) Lymph # [place] # Seg Neutrophils % Seg Neuts % (Manual) Lymphocytes % (Manual) Seg Neutrophils # Seg Neutrophils # Man Lymphocytes # (Manual) PT INR APTT POC ABG pH POC ABG pCO2 POC ABG pO2 Sodium Potassium Chloride Carbon Dioxide BUN Creatinine Glucose POC Glucose 112 H 127 H 145 H Lactic Acid Calcium Phosphorus Magnesium Iron TIBC AST ALT Alkaline Phosphatase Lactate Dehydrogenase Total Creatine Kinase C-Reactive Protein Total Protein Albumin Prealbumin CA 19-9 Antigen Folate PTH Intact Urine WBC (Auto) Urine Creatinine Urine Chloride Urine Total Protein Fluid Glucose Fluid Total Protein Vancomycin Trough Miscellaneous Test Crossmatch 06/20/18 06/21/18 06/21/18 23:54 05:50 05:50 WBC RBC 2.57 L Hgb 7.7 L Hct 26.6 L MCV 104 H MCHC 29 L RDW 19.1 H Plt Count 521 H Lymph % (Auto) 10.0 L [place] % (Auto) 7.4 H Lymph # 1.0 L [place] # Seg Neutrophils % 81.3 H Seg Neuts % (Manual) Lymphocytes % (Manual) Seg Neutrophils # 7.9 H Seg Neutrophils # Man Lymphocytes # (Manual) PT INR APTT POC ABG pH POC ABG pCO2 POC ABG pO2 Sodium Potassium 5.8 H D Chloride 90.3 L Carbon Dioxide 37 H BUN 57 H Creatinine 1.9 H Glucose POC Glucose 154 H Lactic Acid Calcium 7.3 L Phosphorus Magnesium Iron TIBC AST 50 H ALT Alkaline Phosphatase 190 H Lactate Dehydrogenase Total Creatine Kinase C-Reactive Protein Total Protein Albumin 1.8 L Prealbumin CA 19-9 Antigen Folate PTH Intact Urine WBC (Auto) Urine Creatinine Urine Chloride Urine Total Protein Fluid Glucose Fluid Total Protein Vancomycin Trough Miscellaneous Test Crossmatch 06/21/18 06/21/18 06/21/18 06:57 13:37 17:00 WBC RBC Hgb Hct MCV MCHC RDW Plt Count Lymph % (Auto) [place] % (Auto) Lymph # [place] # Seg Neutrophils % Seg Neuts % (Manual) Lymphocytes % (Manual) Seg Neutrophils # Seg Neutrophils # Man Lymphocytes # (Manual) PT INR APTT POC ABG pH POC ABG pCO2 POC ABG pO2 Sodium Potassium Chloride Carbon Dioxide BUN Creatinine Glucose 111 H POC Glucose 141 H 148 H Lactic Acid Calcium Phosphorus Magnesium Iron TIBC AST ALT Alkaline Phosphatase Lactate Dehydrogenase Total Creatine Kinase C-Reactive Protein Total Protein Albumin Prealbumin CA 19-9 Antigen Folate PTH Intact Urine WBC (Auto) Urine Creatinine Urine Chloride Urine Total Protein Fluid Glucose Fluid Total Protein Vancomycin Trough Miscellaneous Test Crossmatch 06/21/18 06/21/18 06/22/18 17:27 22:01 06:02 WBC RBC Hgb Hct MCV MCHC RDW Plt Count Lymph % (Auto) [place] % (Auto) Lymph # [place] # Seg Neutrophils % Seg Neuts % (Manual) Lymphocytes % (Manual) Seg Neutrophils # Seg Neutrophils # Man Lymphocytes # (Manual) PT INR APTT POC ABG pH POC ABG pCO2 POC ABG pO2 Sodium Potassium 3.2 L Chloride Carbon Dioxide 39 H BUN 53 H Creatinine 1.9 H Glucose 1348 H* POC Glucose 130 H 122 H Lactic Acid Calcium 7.5 L Phosphorus Magnesium Iron TIBC AST ALT Alkaline Phosphatase Lactate Dehydrogenase Total Creatine Kinase C-Reactive Protein Total Protein Albumin Prealbumin CA 19-9 Antigen Folate PTH Intact Urine WBC (Auto) Urine Creatinine Urine Chloride Urine Total Protein Fluid Glucose Fluid Total Protein Vancomycin Trough Miscellaneous Test Crossmatch 06/22/18 06/22/18 06/22/18 06:16 07:26 07:48 WBC RBC Hgb Hct MCV MCHC RDW Plt Count Lymph % (Auto) [place] % (Auto) Lymph # [place] # Seg Neutrophils % Seg Neuts % (Manual) Lymphocytes % (Manual) Seg Neutrophils # Seg Neutrophils # Man Lymphocytes # (Manual) PT INR APTT POC ABG pH POC ABG pCO2 POC ABG pO2 Sodium Potassium Chloride Carbon Dioxide 37 H BUN 57 H Creatinine 1.9 H Glucose 147 H POC Glucose 148 H 153 H Lactic Acid Calcium 8.3 L Phosphorus Magnesium Iron TIBC AST ALT Alkaline Phosphatase Lactate Dehydrogenase Total Creatine Kinase C-Reactive Protein Total Protein Albumin Prealbumin CA 19-9 Antigen Folate PTH Intact Urine WBC (Auto) Urine Creatinine Urine Chloride Urine Total Protein Fluid Glucose Fluid Total Protein Vancomycin Trough Miscellaneous Test Crossmatch 06/22/18 11:26 WBC RBC Hgb Hct MCV MCHC RDW Plt Count Lymph % (Auto) [place] % (Auto) Lymph # [place] # Seg Neutrophils % Seg Neuts % (Manual) Lymphocytes % (Manual) Seg Neutrophils # Seg Neutrophils # Man Lymphocytes # (Manual) PT INR APTT POC ABG pH POC ABG pCO2 POC ABG pO2 Sodium Potassium Chloride Carbon Dioxide BUN Creatinine Glucose POC Glucose 121 H Lactic Acid Calcium Phosphorus Magnesium Iron TIBC AST ALT Alkaline Phosphatase Lactate Dehydrogenase Total Creatine Kinase C-Reactive Protein Total Protein Albumin Prealbumin CA 19-9 Antigen Folate PTH Intact Urine WBC (Auto) Urine Creatinine Urine Chloride Urine Total Protein Fluid Glucose Fluid Total Protein Vancomycin Trough Miscellaneous Test Crossmatch Allied health notes reviewed: nursing
[2018-06-22] MEDS ORDERED: K-DUR PO ONE (15:36)
--- NOTE | 2018-06-22 16:03 | Event Note ---
Date: 06/22/18 Pt s/p Nephrostomy tube placement on 05/14/2018. OK per Interventional Radiology to resume anticoagulation.
[2018-06-22] MEDS ORDERED: POTASSIUM CHLORIDE PO ONE (18:00)
[2018-06-22] MEDS ORDERED: INTRALIPID 20% 250 ML IV SCH (20:00)
[2018-06-22] MEDS ORDERED: TPN ADULT 2,016 ML IV SCH (20:00)
[2018-06-22] MEDS: MORPHINE IV PRN (22:23)
[2018-06-22] MEDS: ATIVAN IV PRN (23:53)
[2018-06-23] MEDS: HumuLIN R SUB-Q SCH ×5 (00:24→18:10)
[2018-06-23 05:39] LABS: Calcium 8.3 mg/dL (8.4-10.2)
[2018-06-23] MEDS: APRESOLINE PO SCH ×2 (06:30→13:03)
[2018-06-23] MEDS ORDERED: NACL 0.9% 500 ML 0 ML ONE (07:34)
[2018-06-23] MEDS ORDERED: ADRENALIN ONE (08:13)
[2018-06-23] MEDS ORDERED: SODIUM BICARBONATE IV ONE (08:13)
--- NOTE | 2018-06-23 08:26 | Event Note ---
Date: 06/23/18 Patient developed shortness of breath,respiratory distress overnight. ABG was done showing pH 7.195. He was put on BIPAP, repeat ABG was slightly improved pH 7.32. However patient became worse developed bradycardia with PEA arrest, cardiorespiratory arrest. Fan inocente called at 7:17 am. Code run as per protocol. He had CPR, multiple rounds of epinephrine, bicarb, and was intubated during code. It was a prolonged resuscitation effort and eventually regained pulse and code terminated 07:45. Patient was then transferred to ICU. After several minutes he had another cardiorespiratory arrest and fan brower called again at 08:09. CPR was done, multiple doses of Epinephrine and bicarb given and he regained pulse and code terminated at 08:19 am
--- NOTE | 2018-06-23 08:27 | Progress Note ---
Assessment and Plan Assessment and plan: Assessment and plan: s/p cardiorespiratory arrest. Patient developed shortness of breath overnight. ABG was done showing pH 7.195. He was put on BIPAP, repeat ABG was slightly improved pH7.32. However patient became worse developed bradycardia with PEA arrest, cardiorespiratory arrest. Ally brower called at 7:17 am. Code run as per protocol. He had CPR, multiple rounds of epinephrine, bicarb, and was intubated during code. It was a prolonged resuscitation effort and eventually regained pulse and code terminated 07:45 am. Patient was then transferred to ICU. After several minutes he had another cardiorespiratory arrest and ally brower called again at 08:09 am. CPR was done, multiple doses of Epinephrine and bicarb given and he regained pulse and code terminated at 08:19. He is unresponsive. Intubated on ventilator. I discussed case with Slicing Machine Operator/Tender, Dr. Lopez and it was decided to initiate heparin drip. Patient had DVT right lower ext but was not on anticoagulation because of nephrostomy tubes, major abdominal surgery. However vasc surgery stated ok to start anticoagulation. 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 Differentiated carcinoma with squamous differentiation on pathology but unsure of exact primary Continue pain control PRN Bilateral pneumonia (possibly aspiration) Monitor respiratory status Continue Nebs PRN Bilateral moderate pleural effusion Sepsis was on Antibiotics. Acute kidney injury (obstructive uropathy vs contrast nephropathy) was on hemodialysis temporarily. Stable renal function. Dialysis catheter removed as per nephrology Continue to monitor BMP and kidney fuction Had bilateral nephrostomy tubes placed 05/14/[address] Freeman. Acute deep venous thrombosis Anticoagulation previously on hold because of anemia, bilateral nephrostomy tubes and abdominal surgery Bowel obstruction s/p surgery Etiology secondary to extrinsic compression from mass. Continue TPN Moderate to severe protein calorie malnutrition Anemia due to Chronic illness s/p PRBC transfusion Plan was for him to go to LTAC prior to cardioresp arrest today. Poor prognosis with prolonged cardiorespiratory arrest. Discussed with sister, Adriana Dinh in detail. History Interval history: Patient had shortness of breath, worsening respiratory distress, had cardiorespiratory arrest x2, resuscitated both times, now intubated, on Levophed Hospitalist Physical - Physical exam Narrative exam: GEN:Now Intubated, on mechanical ventilator, HEENT: Normocephalic, atraumatic, Neck: supple, No JVD Lungs: Decreased breath sounds both bases, no crackles Heart:S1 and S2 regular ,no murmurs, rubs or gallop Abd:soft, ostomy, bilat nephrostomy tubes, bowel sounds present Ext: No edema, clubbing or cyanosis Neuro: Intubated, Unresponsive, on ventilator - Constitutional Vitals: Temp Pulse Resp BP Pulse Ox 98.3 F 103 H 20 147/94 91 06/23/18 06:19 06/23/18 06:19 06/23/18 06:19 06/23/18 06:19 06/23/18 06:19 General appearance: Present: no acute distress Results - Labs CBC & Chem 7: 06/26/18 04:00 06/26/18 04:00 Labs: Laboratory Last Values WBC 9.7 K/mm3 (4.5-11.0) 06/21/18 05:50 RBC 2.57 M/mm3 (3.65-5.03) L 06/21/18 05:50 Hgb 7.7 gm/dl (11.8-15.2) L 06/21/18 05:50 Hct 26.6 % (35.5-45.6) L 06/21/18 05:50 MCV 104 fl (84-94) H 06/21/18 05:50 MCH 30 pg (28-32) 06/21/18 05:50 MCHC 29 % (32-34) L 06/21/18 05:50 RDW 19.1 % (13.2-15.2) H 06/21/18 05:50 Plt Count 521 K/mm3 (140-440) H 06/21/18 05:50 Lymph % (Auto) 10.0 % (13.4-35.0) L 06/21/18 05:50 Schuyler % (Auto) 7.4 % (0.0-7.3) H 06/21/18 05:50 Eos % (Auto) 0.4 % (0.0-4.3) 06/21/18 05:50 Baso % (Auto) 0.9 % (0.0-1.8) 06/21/18 05:50 Lymph # 1.0 K/mm3 (1.2-5.4) L 06/21/18 05:50 Schuyler # 0.7 K/mm3 (0.0-0.8) 06/21/18 05:50 Eos # 0.0 K/mm3 (0.0-0.4) 06/21/18 05:50 Baso # 0.1 K/mm3 (0.0-0.1) 06/21/18 05:50 Add Manual Diff Complete 05/31/18 04:50 Total Counted 100 05/31/18 04:50 Seg Neutrophils % 81.3 % (40.0-70.0) H 06/21/18 05:50 Seg Neuts % (Manual) 91.0 % (40.0-70.0) H 05/31/18 04:50 Band Neutrophils % 2.0 % 05/31/18 04:50 Lymphocytes % (Manual) 2.0 % (13.4-35.0) L 05/31/18 04:50 Reactive Lymphs % (Man) 0 % 05/31/18 04:50 Monocytes % (Manual) 2.0 % (0.0-7.3) 05/31/18 04:50 Eosinophils % (Manual) 1.0 % (0.0-4.3) 05/31/18 04:50 Basophils % (Manual) 0 % (0.0-1.8) 05/31/18 04:50 Metamyelocytes % 1.0 % 05/31/18 04:50 Myelocytes % 1.0 % 05/31/18 04:50 Promyelocytes % 0 % 05/31/18 04:50 Blast Cells % 0 % 05/31/18 04:50 Nucleated RBC % Not Reportable 05/31/18 04:50 Seg Neutrophils # 7.9 K/mm3 (1.8-7.7) H 06/21/18 05:50 Seg Neutrophils # Man 17.0 K/mm3 (1.8-7.7) H 05/31/18 04:50 Band Neutrophils # 0.4 K/mm3 05/31/18 04:50 Lymphocytes # (Manual) 0.4 K/mm3 (1.2-5.4) L 05/31/18 04:50 Abs React Lymphs (Man) 0.0 K/mm3 05/31/18 04:50 Monocytes # (Manual) 0.4 K/mm3 (0.0-0.8) 05/31/18 04:50 Eosinophils # (Manual) 0.2 K/mm3 (0.0-0.4) 05/31/18 04:50 Basophils # (Manual) 0.0 K/mm3 (0.0-0.1) 05/31/18 04:50 Metamyelocytes # 0.2 K/mm3 05/31/18 04:50 Myelocytes # 0.2 K/mm3 05/31/18 04:50 Promyelocytes # 0.0 K/mm3 05/31/18 04:50 Blast Cells # 0.0 K/mm3 05/31/18 04:50 WBC Morphology Not Reportable 05/31/18 04:50 Hypersegmented Neuts Not Reportable 05/31/18 04:50 Hyposegmented Neuts Not Reportable 05/31/18 04:50 Hypogranular Neuts Not Reportable 05/31/18 04:50 Smudge Cells Not Reportable 05/31/18 04:50 Toxic Granulation Not Reportable 05/31/18 04:50 Toxic Vacuolation Not Reportable 05/31/18 04:50 Dohle Bodies Not Reportable 05/31/18 04:50 Pelger-Huet Anomaly Not Reportable 05/31/18 04:50 Mahesh Rods Not Reportable 05/31/18 04:50 Platelet Estimate Appears normal 05/31/18 04:50 Clumped Platelets Not Reportable 05/31/18 04:50 Plt Clumps, EDTA Not Reportable 05/31/18 04:50 Large Platelets Not Reportable 05/31/18 04:50 Giant Platelets Not Reportable 05/31/18 04:50 Platelet Satelliting Not Reportable 05/31/18 04:50 Plt Morphology Comment Not Reportable 05/31/18 04:50 RBC Morphology Not Reportable 05/31/18 04:50 Dimorphic RBCs Not Reportable 05/31/18 04:50 Polychromasia Not Reportable 05/31/18 04:50 Hypochromasia Few 05/31/18 04:50 Poikilocytosis Not Reportable 05/31/18 04:50 Anisocytosis 1+ 05/31/18 04:50 Microcytosis Few 05/31/18 04:50 Macrocytosis Not Reportable 05/31/18 04:50 Spherocytes Not Reportable 05/31/18 04:50 Pappenheimer Bodies Not Reportable 05/31/18 04:50 Sickle Cells Not Reportable 05/31/18 04:50 Target Cells Rare 05/31/18 04:50 Tear Drop Cells Not Reportable 05/31/18 04:50 Ovalocytes 1+ 05/31/18 04:50 Helmet Cells Not Reportable 05/31/18 04:50 Hernandez-Mershon Bodies Not Reportable 05/31/18 04:50 [place] Rings Not Reportable 05/31/18 04:50 Nory Cells Not Reportable 05/31/18 04:50 Bite Cells Not Reportable 05/31/18 04:50 Crenated Cell Not Reportable 05/31/18 04:50 Elliptocytes Not Reportable 05/31/18 04:50 Acanthocytes (Spur) Not Reportable 05/31/18 04:50 Rouleaux Not Reportable 05/31/18 04:50 Hemoglobin C Crystals Not Reportable 05/31/18 04:50 Schistocytes Not Reportable 05/31/18 04:50 Malaria parasites Not Reportable 05/31/18 04:50 Mk Bodies Not Reportable 05/31/18 04:50 Hem Pathologist Commnt No 05/31/18 04:50 PT 16.3 Sec. (12.2-14.9) H 06/14/18 09:50 INR 1.24 (0.87-1.13) H 06/14/18 09:50 APTT 40.0 Sec. (24.2-36.6) H 05/23/18 09:03 POC ABG pH 7.235 (7.35-7.45) L 06/23/18 01:40 POC ABG pCO2 95.7 (35-45) H 06/23/18 01:40 POC ABG pO2 91 (80-105) 06/23/18 01:40 POC ABG HCO3 40.5 06/23/18 01:40 POC ABG Total CO2 43 06/23/18 01:40 POC ABG O2 Sat 94 06/23/18 01:40 POC ABG Base Excess 13 06/23/18 01:40 FiO2 80 % 06/23/18 01:40 Sodium 148 mmol/L (137-145) H 06/23/18 Unknown Potassium 3.8 mmol/L (3.6-5.0) 06/23/18 Unknown Chloride 98.8 mmol/L (98-107) 06/23/18 Unknown Carbon Dioxide 36 mmol/L (22-30) H 06/23/18 Unknown Anion Gap 17 mmol/L 06/23/18 Unknown BUN 57 mg/dL (9-20) H 06/23/18 Unknown Creatinine 1.9 mg/dL (0.8-1.5) H 06/23/18 Unknown Estimated GFR 45 ml/min 06/23/18 Unknown BUN/Creatinine Ratio 30 % 06/23/18 Unknown Glucose 90 mg/dL (75-100) 06/23/18 Unknown POC Glucose 116 (70-105) H 06/23/18 05:58 Hemoglobin A1c 5.7 % (4-6) 05/14/18 05:05 Lactic Acid 3.80 mmol/L (0.7-2.0) H* 05/26/18 11:00 Calcium 8.3 mg/dL (8.4-10.2) L 06/23/18 Unknown Phosphorus 4.40 mg/dL (2.5-4.5) 06/21/18 05:50 Magnesium 2.20 mg/dL (1.7-2.3) 06/21/18 05:50 Iron 24 ug/dL (49-181) L 05/16/18 07:02 TIBC 160 mcg/dL (250-450) L 05/16/18 07:02 Ferritin 325.8 ng/mL (13.0-400.0) 05/16/18 07:02 Total Bilirubin 0.20 mg/dL (0.1-1.2) 06/21/18 05:50 AST 50 units/L (5-40) H 06/21/18 05:50 ALT 35 units/L (7-56) 06/21/18 05:50 Alkaline Phosphatase 190 units/L (35-129) H 06/21/18 05:50 Lactate Dehydrogenase 297 units/L (91-180) H 06/08/18 21:36 Total Creatine Kinase 34 units/L (55-170) L 06/12/18 04:12 CK-MB (CK-2) 2.3 ng/mL (0.0-4.0) 05/25/18 22:46 CK-MB (CK-2) Rel Index 1.4 (0-4) 05/25/18 22:46 C-Reactive Protein 3.60 mg/dL (0.00-1.30) H 06/10/18 17:15 Total Protein 6.9 g/dL (6.3-8.2) 06/21/18 05:50 Albumin 1.8 g/dL (3.9-5) L 06/21/18 05:50 Albumin/Globulin Ratio 0.4 % 06/21/18 05:50 Prealbumin 0.130 g/L (0.200-0.400) L 06/17/18 05:52 Triglycerides 56 mg/dL (2-149) 06/19/18 06:20 CA 19-9 Antigen 57 U/mL (<34) H 06/08/18 21:43 Prostate Specific Ag 0.96 ng/mL (0.00-4.00) 05/14/18 13:29 Free PSA See scanned result 06/08/18 21:44 % Free PSA Calc See scanned result 06/08/18 21:44 Total PSA See scanned result 06/08/18 21:44 Vitamin B12 359.2 pg/mL (211-911) 05/16/18 07:02 Folate 5.39 ng/mL (7.3-26.0) L 05/16/18 07:02 TSH 3.180 mlU/mL (0.270-4.200) 05/14/18 05:05 PTH Intact 65.37 pg/mL (15-65) H 05/14/18 05:05 Urine Color Yellow (Yellow) 06/11/18 07:41 Urine Turbidity Slightly-cloudy (Clear) 06/11/18 07:41 Urine pH 6.0 (5.0-7.0) 06/11/18 07:41 Ur Specific [place] 1.011 (1.003-1.030) 06/11/18 07:41 Urine Protein 100 mg/dl mg/dL (Negative) 06/11/18 07:41 Urine Glucose (UA) 150 mg/dL (Negative) 06/11/18 07:41 Urine Ketones Neg mg/dL (Negative) 06/11/18 07:41 Urine Blood Sm (Negative) 06/11/18 07:41 Urine Nitrite Neg (Negative) 06/11/18 07:41 Urine Bilirubin Neg (Negative) 06/11/18 07:41 Urine Urobilinogen < 2.0 mg/dL (<2.0) 06/11/18 07:41 Ur Leukocyte Esterase Sm (Negative) 06/11/18 07:41 Urine WBC (Auto) 10.0 /HPF (0.0-6.0) H 06/11/18 07:41 Urine RBC (Auto) 5.0 /HPF (0.0-6.0) 06/11/18 07:41 U Epithel Cells (Auto) 1.0 /HPF (0-13.0) 06/11/18 07:41 Urine Bacteria (Auto) 1+ /HPF (Negative) 06/11/18 07:41 Urine WBC Clumps Few /HPF 05/13/18 19:39 Urine Mucus Few /HPF 06/11/18 07:41 Ur Yeast w Hyphae Few /HPF 06/11/18 07:41 Urine Yeast (Budding) Few /HPF 06/11/18 07:41 Urine Creatinine 41.2 mg/dL (0.1-20.0) H 06/11/18 07:41 Urine Sodium 79 mmol/L 06/11/18 07:41 Urine Potassium 13.27 mmol/L 06/11/18 07:41 Urine Chloride 49.2 mmolL (110-250) L 06/11/18 07:41 Urine Total Protein 142 mg/dL (5-11.8) H 06/11/18 07:41 Fluid Type Ascitic 06/03/18 Unknown Fluid Color Yellow 06/03/18 Unknown Fluid Appearance Cloudy 06/03/18 Unknown Fluid WBC 28020 /mm3 06/03/18 Unknown Fluid RBC 9 /mm3 06/03/18 Unknown Fluid Seg Neutrophils 98.0 % 06/03/18 Unknown Fluid Lymphocytes 2.0 % 06/03/18 Unknown Fluid Reactive Lymphs 0 % 06/03/18 Unknown Fluid Monocytes 0 % 06/03/18 Unknown Fluid Eosinophils 0 % 06/03/18 Unknown Fluid Basophils 0 % 06/03/18 Unknown Fluid Glucose 10 mg/dL (40-70) L 06/03/18 Unknown Fluid Total Protein 3.7 (15.0-45.0) L 06/03/18 Unknown Fluid Albumin 0.8 g/dL 06/03/18 Unknown Fluid LDH > 84533 06/03/18 Unknown Fluid Amylase 126 06/03/18 Unknown Vancomycin Trough 25.1 ug/mL (5.0-20.0) H 05/25/18 22:46 Random Vancomycin 34.3 ug/mL (0-40.0) 05/26/18 11:01 Urine Opiates Screen Presumptive negative 06/11/18 07:41 Urine Methadone Screen Presumptive negative 06/11/18 07:41 Ur Barbiturates Screen Presumptive negative 06/11/18 07:41 Ur Phencyclidine Scrn Presumptive negative 06/11/18 07:41 Ur Amphetamines Screen Presumptive negative 06/11/18 07:41 U Benzodiazepines Scrn Presumptive negative 06/11/18 07:41 Urine Cocaine Screen Presumptive negative 06/11/18 07:41 U Marijuana (THC) Screen Presumptive negative 06/11/18 07:41 Drugs of Abuse Note Disclamer 06/11/18 07:41 ZEUS Screen Negative (Negative) 05/14/18 05:05 Proteinase 3 (PR3) Ab <1.0 AI (<1.0) 05/14/18 05:05 Myeloperoxidase Ab <1.0 AI (<1.0) 05/14/18 05:05 Complement C3 147 mg/dL (82-185) 05/14/18 05:05 Complement C4 45 mg/dL (15-53) 05/14/18 05:05 Hepatitis A IgM Ab Nonreactive (NonReactive) 05/27/18 13:41 Hep Bs Antigen Non-reactive (Negative) 05/27/18 13:41 Hep B Core IgM Ab Non-reactive (NonReactive) 05/27/18 13:41 Hepatitis C Antibody Non-reactive (NonReactive) 05/27/18 13:41 Miscellaneous Test Flexitest 1 H 06/09/18 07:37 Blood Type O POSITIVE 06/09/18 13:24 Antibody Screen Negative 06/09/18 13:24 Crossmatch See Detail 06/09/18 13:24
[2018-06-23] MEDS ORDERED: LEVOPHED DRIP 4 MG/NS 250 ML 4 MG/250 ML BAG IV ONE (08:28)
--- NOTE | 2018-06-23 08:48 | Hem/Onc Progress Note ---
Assessment and Plan #bowel obstruction - s/p diverting colostomy 05/26 sx notes -mentions matted mass #radiology Pelvic mass Large pelvic mass between bladder and rectum with large lymph nodes, s/p cystoscopy prostate area bx - sq cell features- anal vs lung path from ascites and pleural fluid reviewed # CT had shown bowel obstruction - s/p diverting colostomy # anemia - PRBC as needed low folate - on replacement # h/o leukocytosis on 05/22 - we will follow - likely reactive # h/o Acute kidney injury due to pelvic mass - Nephrology following. Ultrasound Kidneys showed bilat hydronephrosis CT Abd shows Pelvic mass with multiple large lymph nodes Had bilateral nephrostomy tubes placed 05/14/[address] Freeman. 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 Pt transferred to ICU has he was SOB - intubated - 06/23 - d/w dr Smiley - pt hypotensive - active interventions ongoing - Patient Problems (1) Pelvic mass in male Current Visit: Yes Status: Acute Subjective Date of service: 06/23/18 Principal diagnosis: sq cell ca Interval history: pt had diverting colostomy 05/26 had code - transferred to ICU Objective - Exam Narrative Exam: pt on vent - hypotensive d/w dr smiley - Constitutional Vitals: Last Vital Signs Temp 98.3 F 06/23/18 06:19 Pulse 103 H 06/23/18 06:19 Resp 20 06/23/18 06:19 BP 147/94 06/23/18 06:19 Pulse Ox 91 06/23/18 06:19 - Labs Lab Results: Laboratory Results - last 24 hr 06/22/18 06/22/18 06/22/18 11:26 16:26 23:57 POC ABG pH POC ABG pCO2 POC ABG pO2 POC ABG HCO3 POC ABG Total CO2 POC ABG O2 Sat POC ABG Base Excess FiO2 Sodium Potassium Chloride Carbon Dioxide Anion Gap BUN Creatinine Estimated GFR BUN/Creatinine Ratio Glucose POC Glucose 121 H 122 H 180 H Calcium 06/22/18 06/23/18 06/23/18 23:57 01:40 05:58 POC ABG pH 7.195 L 7.235 L POC ABG pCO2 105.2 H 95.7 H POC ABG pO2 98 91 POC ABG HCO3 40.6 40.5 POC ABG Total CO2 44 43 POC ABG O2 Sat 95 94 POC ABG Base Excess 12 13 FiO2 100 80 Sodium Potassium Chloride Carbon Dioxide Anion Gap BUN Creatinine Estimated GFR BUN/Creatinine Ratio Glucose POC Glucose 116 H Calcium 06/23/18 Unknown POC ABG pH POC ABG pCO2 POC ABG pO2 POC ABG HCO3 POC ABG Total CO2 POC ABG O2 Sat POC ABG Base Excess FiO2 Sodium 148 H Potassium 3.8 Chloride 98.8 Carbon Dioxide 36 H Anion Gap 17 BUN 57 H Creatinine 1.9 H Estimated GFR 45 BUN/Creatinine Ratio 30 Glucose 90 POC Glucose Calcium 8.3 L
[2018-06-23 08:55] LABS: Hematocrit 22.3 % (35.5-45.6); Hemoglobin 6.7 gm/dl (11.8-15.2); Mean Corpuscular HGB Conc 30 % (32-34); Mean Corpuscular Hemoglobin 28 pg (28-32); Mean Corpuscular Volume 95 fl (84-94); Platelet Count 512 K/mm3 (140-440); Red Blood Count 2.35 M/mm3 (3.65-5.03); Red Cell Distribution Width 18.5 % (13.2-15.2)
[2018-06-23] MEDS: LEVOPHED DRIP 4 MG/NS 250 ML 4 MG/250 ML BAG IV SCH (08:58)
[2018-06-23] MEDS ORDERED: NACL 0.9% 500 ML 500 ML IV ONE (08:58)
--- NOTE | 2018-06-23 08:59 | XRay Report ---
Portable spine chest: Respiratory distress. There are bilateral pleural effusions. Bilateral pulmonary opacities. Considering changes in chest position the findings may not be significantly different than those identified on prior exam of June 17. The right CVP line remains unchanged at the upper SVC. There has been interval placement of an endotracheal tube with the tip approximately 3 cm above the patience. Impression: 1. Well-positioned endotracheal tube. 2. Persistent bilateral effusions. Suspect vascular congestion and possibly pulmonary infiltrates but difficult to assess in supine position.
[2018-06-23] MEDS ORDERED: LEVOPHED DRIP 4 MG/NS 250 ML 4 MG/250 ML BAG IV SCH (09:00)
[2018-06-23] MEDS ORDERED: HEPARIN 10,000 UNITS/10 ML IV ONE (09:00)
[2018-06-23 09:05] LABS: INR 1.15 (0.87-1.13)
--- NOTE | 2018-06-23 09:05 | Progress Note ---
Assessment and Plan 1. Acute kidney injury: Initial MARYLOU in the setting of bilateral hydronephrosis secondary to pelvic mass , now s/p bilateral nephrostomy. Recurrent Acute kidney injury likely ATN. Patient was started on hemodialysis due to worsening renal function and persistent hyperkalemia. Last dialyzed on 06/02/18. Renal function is stable for the past few days. Renal prognosis is guarded. 2. Electrolytes: Monitor. 3. Bowel obstruction: S/p colostomy. 4. Bilateral hydronephrosis: Secondary to pelvic mass. S/p bilateral nephrostomy. S/p Cysto and drainage of abscess. 5. Respiratory failure: On vent. 6. S/p PEA. 7. Sepsis: Complicated UTI and pneumonia. On Zosyn. 8. Anemia. 9. 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 Subjective Date of service: 06/23/18 Principal diagnosis: sq cell ca Interval history: Patient was seen and examined at the bedside. Patient had PEA. Transferred to ICU. Objective - Vital Signs Vital signs: Vital Signs - 12hr 06/22/18 06/22/18 06/23/18 22:00 23:17 00:00 Temperature 98.2 F Pulse Rate 100 H 91 H Respiratory 20 20 38 H Rate Blood Pressure 129/91 O2 Sat by Pulse 76 L 98 Oximetry 06/23/18 06/23/18 06/23/18 00:30 01:40 04:50 Temperature Pulse Rate 86 88 100 H Respiratory 40 H 28 H 30 H Rate Blood Pressure O2 Sat by Pulse 100 100 95 Oximetry 06/23/18 06:19 Temperature 98.3 F Pulse Rate 103 H Respiratory 20 Rate Blood Pressure 147/94 O2 Sat by Pulse 91 Oximetry - General Appearance General appearance: well-developed, appears stated age, intubated, other (on vent) EENT: ATNC Neck: supple Respiratory: Present: Other (coarse breath sounds) Cardiology: regular, S1S2, faint heart tones Gastrointestinal: normoactive bowel sounds, distended, other (bilateral nephrostomy, drain and ostomy noted) Integumentary: no rash Neurologic: obtunded Musculoskeletal: other (no edema) - Lab 06/23/18 08:34 06/23/18 Unknown Most recent lab results Calcium 8.3 mg/dL (8.4-10.2) L 06/23/18 Unknown Phosphorus 4.40 mg/dL (2.5-4.5) 06/21/18 05:50 Magnesium 2.20 mg/dL (1.7-2.3) 06/21/18 05:50 Urine Creatinine 41.2 mg/dL (0.1-20.0) H 06/11/18 07:41 Urine Sodium 79 mmol/L 06/11/18 07:41 Urine Total Protein 142 mg/dL (5-11.8) H 06/11/18 07:41
[2018-06-23 09:06] LABS: Partial Thromboplastin Time 41.9 Sec. (24.2-36.6)
[2018-06-23 09:16] LABS: Albumin 1.6 g/dL (3.9-5); Calcium 8.2 mg/dL (8.4-10.2)
--- NOTE | 2018-06-23 09:25 | Progress Note ---
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 CTA negative for PE Metabolic acidosis Acute blood loss anemia Moderate to severe protein calorie malnutrition s/p surgery 05/26 (had ex-lap; matted abdominal organs, pus - Enterostomy tube decompression,loop colostomy and large triple lumen sump drainage of pelvis) s/p bilateral nephrostomy tubes placed 05/14/[address] Freeman.(CTA negative for P.E. ) -Transfer ICU -VAP bundle -Wean vasopresor support for MAP>65 -Bronchodilators, supplemental oxygen -Continue broad spectrum antibiotics/anti-infectives per ID recommendations -Nutritional support, TPN and place SBFT for enteric nutritional support -CT head -EEG in the morning with Neurology consult -With prolonged CPR, at risk of anoxic injury - continue bronchodilators with pulmonary hygiene per RT - HD/UF for toxin and volume clearance - continue TPN , enteral feeding per surgery service - Malignancy per heme-oncologist - continue mobility protocol for pressure ulcer prevention - continue other care per attending / other consultants Full code status Discussed with hospitalist service. Need discussions with family re goals of care, metastatic disease, post cardiac arrest portends poor prognosis The high probability of a clinically significant, sudden or life threatening deterioration of the [respiratory,cardiac, neurology and renal] system(s) required my full and direct attention, intervention and personal management. The aggregate critical care time was [45] minutes without overlap. Time includes spent on; [x] Data Review and interpretation [x] Patient assessment and monitoring of vital signs [x] Documentation [x] Medication orders and management - Subjective Date of service: 06/23/18 Principal diagnosis: sq cell ca Interval history: Patient is seen today for: Acute Hypoxemic Resp Failure; Sepsis Syndrome; Acute VTE; Prostate Cancer, s/p cardiopulmonary arrest(PEA) this morning Was on BIPAP overnight, found unresponsive, PEA arrest. See code blue notes for details. Apprently lasted for over 30 minutes, before ROSC Seen and examined. vitals, labs, medications, chart reviewed.; 24hour events reviewed; nursing and respiratory care staff consulted; Currently on MVS, unresponsive, on norepinephrine infusion. Discussed in ICU-IDT rounds Objective Vital Signs - 12hr 06/22/18 06/22/18 06/23/18 22:00 23:17 00:00 Temperature 98.2 F Pulse Rate 100 H 91 H Respiratory 20 20 38 H Rate Blood Pressure 129/91 O2 Sat by Pulse 76 L 98 Oximetry 06/23/18 06/23/18 06/23/18 00:30 01:40 04:50 Temperature Pulse Rate 86 88 100 H Respiratory 40 H 28 H 30 H Rate Blood Pressure O2 Sat by Pulse 100 100 95 Oximetry 06/23/18 06:19 Temperature 98.3 F Pulse Rate 103 H Respiratory 20 Rate Blood Pressure 147/94 O2 Sat by Pulse 91 Oximetry Constitutional: no acute distress, comatose, other (chronically ill looking middle aged AAM, normocephalic and atraumatic, ) Eyes: non-icteric ENT: oropharynx moist, other (orally intubated to MVS) Neck: supple, no lymphadenopathy, no JVD, other (no thyromegaly) Effort: mildly labored Ascultation: Bilateral: diminished breath sounds, rales (L>R base), rhonchi ( scant in bases) Percussion: Bilateral: not dull, dull (bases) Cardiovascular: regular rate and rhythm, other (No R/M, S1,S2) Gastrointestinal: hypoactive bowel sounds, soft, tender (mild), other (Distended ; No palpable HSM, bilateral nephrostomy tubes,Ileostomy, ZAKI drain) Integumentary: other (femoral vascath) Extremities: no cyanosis, no edema, pulses normal, no ischemia or petechiae Neurologic: pupils equal and round (small luggish reaction), unable to assess, other (weak) Psychiatric: other (unable to assess) CBC and BMP: 06/24/18 04:30 06/24/18 04:30 ABG, PT/INR, D-dimer: ABG POC ABG pH 7.235 (7.35-7.45) L 06/23/18 01:40 POC ABG pCO2 95.7 (35-45) H 06/23/18 01:40 POC ABG pO2 91 (80-105) 06/23/18 01:40 POC ABG HCO3 40.5 06/23/18 01:40 POC ABG Total CO2 43 06/23/18 01:40 POC ABG O2 Sat 94 06/23/18 01:40 PT/INR, D-dimer PT 15.2 Sec. (12.2-14.9) H 06/23/18 08:34 INR 1.15 (0.87-1.13) H 06/23/18 08:34 Abnormal lab findings: Abnormal Labs 05/13/18 05/13/18 05/13/18 04:27 04:27 19:39 WBC RBC 3.13 L Hgb 9.4 L Hct 26.8 L MCV MCHC 35 H RDW Plt Count Lymph % (Auto) Mckean % (Auto) 9.6 H Lymph # Mckean # Seg Neutrophils % Seg Neuts % (Manual) Lymphocytes % (Manual) Seg Neutrophils # Seg Neutrophils # Man Lymphocytes # (Manual) PT INR APTT POC ABG pH POC ABG pCO2 POC ABG pO2 Sodium 132 L Potassium 5.5 H Chloride 94.1 L Carbon Dioxide 19 L BUN 72 H Creatinine 14.4 H Glucose POC Glucose Lactic Acid Calcium Phosphorus Magnesium Iron TIBC AST ALT Alkaline Phosphatase Lactate Dehydrogenase Total Creatine Kinase C-Reactive Protein Total Protein Albumin 2.8 L Prealbumin CA 19-9 Antigen Folate PTH Intact Urine WBC (Auto) Urine Creatinine 66.0 H Urine Chloride 27.8 L Urine Total Protein 24 H Fluid Glucose Fluid Total Protein Vancomycin Trough Miscellaneous Test Crossmatch 05/13/18 05/14/18 05/14/18 20:00 05:05 05:05 WBC RBC Hgb Hct MCV MCHC RDW Plt Count Lymph % (Auto) Mckean % (Auto) Lymph # Mckean # Seg Neutrophils % Seg Neuts % (Manual) Lymphocytes % (Manual) Seg Neutrophils # Seg Neutrophils # Man Lymphocytes # (Manual) PT INR APTT POC ABG pH POC ABG pCO2 POC ABG pO2 Sodium 132 L 131 L Potassium 5.2 H 5.8 H Chloride 93.0 L 95.6 L Carbon Dioxide 19 L 20 L BUN 74 H 81 H Creatinine 15.0 H 16.6 H Glucose 134 H 127 H POC Glucose Lactic Acid Calcium 8.2 L 7.9 L Phosphorus 6.30 H Magnesium Iron TIBC AST ALT Alkaline Phosphatase Lactate Dehydrogenase Total Creatine Kinase 236 H C-Reactive Protein Total Protein Albumin Prealbumin CA 19-9 Antigen Folate PTH Intact 65.37 H Urine WBC (Auto) Urine Creatinine Urine Chloride Urine Total Protein Fluid Glucose Fluid Total Protein Vancomycin Trough Miscellaneous Test Crossmatch 05/14/18 05/14/18 05/14/18 09:28 10:56 13:29 WBC RBC Hgb Hct MCV MCHC RDW Plt Count Lymph % (Auto) Mckean % (Auto) Lymph # Mckean # Seg Neutrophils % Seg Neuts % (Manual) Lymphocytes % (Manual) Seg Neutrophils # Seg Neutrophils # Man Lymphocytes # (Manual) PT INR APTT 38.2 H POC ABG pH POC ABG pCO2 POC ABG pO2 Sodium Potassium Chloride Carbon Dioxide BUN Creatinine Glucose POC Glucose 127 H 126 H Lactic Acid Calcium Phosphorus Magnesium Iron TIBC AST ALT Alkaline Phosphatase Lactate Dehydrogenase Total Creatine Kinase C-Reactive Protein Total Protein Albumin Prealbumin CA 19-9 Antigen Folate PTH Intact Urine WBC (Auto) Urine Creatinine Urine Chloride Urine Total Protein Fluid Glucose Fluid Total Protein Vancomycin Trough Miscellaneous Test Crossmatch 05/15/18 05/15/18 05/16/18 08:06 08:06 07:02 WBC RBC 2.84 L 2.74 L Hgb 8.5 L 8.5 L Hct 24.2 L 23.5 L MCV MCHC 35 H 36 H RDW Plt Count Lymph % (Auto) Mckean % (Auto) 10.4 H 11.0 H Lymph # 1.1 L Mckean # 0.9 H Seg Neutrophils % 72.6 H Seg Neuts % (Manual) Lymphocytes % (Manual) Seg Neutrophils # Seg Neutrophils # Man Lymphocytes # (Manual) PT INR APTT POC ABG pH POC ABG pCO2 POC ABG pO2 Sodium Potassium Chloride Carbon Dioxide 19 L BUN 66 H Creatinine 12.0 H Glucose 115 H POC Glucose Lactic Acid Calcium 8.1 L Phosphorus Magnesium Iron TIBC AST ALT Alkaline Phosphatase Lactate Dehydrogenase Total Creatine Kinase C-Reactive Protein Total Protein Albumin Prealbumin CA 19-9 Antigen Folate PTH Intact Urine WBC (Auto) Urine Creatinine Urine Chloride Urine Total Protein Fluid Glucose Fluid Total Protein Vancomycin Trough Miscellaneous Test Crossmatch 05/16/18 05/16/18 05/17/18 07:02 07:02 05:08 WBC RBC 2.78 L Hgb 8.2 L Hct 23.9 L MCV MCHC RDW Plt Count Lymph % (Auto) Mckean % (Auto) 13.9 H Lymph # Mckean # 0.9 H Seg Neutrophils % Seg Neuts % (Manual) Lymphocytes % (Manual) Seg Neutrophils # Seg Neutrophils # Man Lymphocytes # (Manual) PT INR APTT POC ABG pH POC ABG pCO2 POC ABG pO2 Sodium Potassium Chloride Carbon Dioxide BUN 28 H Creatinine 2.4 H D Glucose POC Glucose Lactic Acid Calcium 8.3 L Phosphorus Magnesium 1.50 L Iron 24 L TIBC 160 L AST ALT Alkaline Phosphatase Lactate Dehydrogenase Total Creatine Kinase C-Reactive Protein Total Protein Albumin Prealbumin CA 19-9 Antigen Folate 5.39 L PTH Intact Urine WBC (Auto) Urine Creatinine Urine Chloride Urine Total Protein Fluid Glucose Fluid Total Protein Vancomycin Trough Miscellaneous Test Crossmatch 05/17/18 05/18/18 05/18/18 05:08 05:57 05:57 WBC RBC 2.79 L Hgb 8.3 L Hct 24.0 L MCV MCHC 35 H RDW Plt Count Lymph % (Auto) Mckean % (Auto) 11.8 H Lymph # Mckean # 0.9 H Seg Neutrophils % Seg Neuts % (Manual) Lymphocytes % (Manual) Seg Neutrophils # Seg Neutrophils # Man Lymphocytes # (Manual) PT INR APTT POC ABG pH POC ABG pCO2 POC ABG pO2 Sodium Potassium Chloride Carbon Dioxide BUN Creatinine Glucose POC Glucose Lactic Acid Calcium 7.7 L 8.0 L Phosphorus Magnesium 1.60 L Iron TIBC AST ALT Alkaline Phosphatase Lactate Dehydrogenase Total Creatine Kinase C-Reactive Protein Total Protein Albumin Prealbumin CA 19-9 Antigen Folate PTH Intact Urine WBC (Auto) Urine Creatinine Urine Chloride Urine Total Protein Fluid Glucose Fluid Total Protein Vancomycin Trough Miscellaneous Test Crossmatch 05/19/18 05/19/18 05/20/18 05:33 05:33 05:38 WBC RBC 2.95 L Hgb 8.8 L Hct 25.8 L MCV MCHC RDW Plt Count Lymph % (Auto) 10.1 L Mckean % (Auto) Lymph # 1.1 L Mckean # Seg Neutrophils % 85.2 H Seg Neuts % (Manual) Lymphocytes % (Manual) Seg Neutrophils # 9.0 H Seg Neutrophils # Man Lymphocytes # (Manual) PT INR APTT POC ABG pH POC ABG pCO2 POC ABG pO2 Sodium 135 L Potassium Chloride Carbon Dioxide BUN Creatinine Glucose 132 H POC Glucose Lactic Acid Calcium 7.8 L 8.3 L Phosphorus Magnesium 1.40 L Iron TIBC AST ALT Alkaline Phosphatase Lactate Dehydrogenase Total Creatine Kinase C-Reactive Protein Total Protein Albumin Prealbumin CA 19-9 Antigen Folate PTH Intact Urine WBC (Auto) Urine Creatinine Urine Chloride Urine Total Protein Fluid Glucose Fluid Total Protein Vancomycin Trough Miscellaneous Test Crossmatch 05/21/18 05/21/18 05/22/18 04:46 15:30 06:49 WBC 20.0 H RBC 2.70 L Hgb 7.8 L Hct 23.3 L MCV MCHC RDW Plt Count Lymph % (Auto) Mckean % (Auto) Lymph # Mckean # Seg Neutrophils % Seg Neuts % (Manual) 85.0 H Lymphocytes % (Manual) 4.0 L Seg Neutrophils # Seg Neutrophils # Man 17.0 H Lymphocytes # (Manual) 0.8 L PT INR APTT POC ABG pH POC ABG pCO2 POC ABG pO2 Sodium 135 L Potassium 3.5 L Chloride Carbon Dioxide 21 L BUN 22 H Creatinine Glucose POC Glucose Lactic Acid Calcium 8.1 L Phosphorus Magnesium Iron TIBC AST ALT Alkaline Phosphatase Lactate Dehydrogenase Total Creatine Kinase C-Reactive Protein Total Protein Albumin Prealbumin CA 19-9 Antigen Folate PTH Intact Urine WBC (Auto) 28.0 H Urine Creatinine Urine Chloride Urine Total Protein Fluid Glucose Fluid Total Protein Vancomycin Trough Miscellaneous Test Crossmatch 05/22/18 05/22/18 05/23/18 06:49 11:23 09:03 WBC RBC Hgb Hct MCV MCHC RDW Plt Count Lymph % (Auto) Mckean % (Auto) Lymph # Mckean # Seg Neutrophils % Seg Neuts % (Manual) Lymphocytes % (Manual) Seg Neutrophils # Seg Neutrophils # Man Lymphocytes # (Manual) PT INR APTT POC ABG pH POC ABG pCO2 POC ABG pO2 Sodium 134 L Potassium 3.5 L Chloride Carbon Dioxide 21 L BUN 35 H 36 H Creatinine 1.7 H Glucose 107 H POC Glucose Lactic Acid Calcium 7.9 L Phosphorus Magnesium 2.50 H Iron TIBC AST ALT Alkaline Phosphatase Lactate Dehydrogenase Total Creatine Kinase C-Reactive Protein Total Protein Albumin Prealbumin CA 19-9 Antigen Folate PTH Intact Urine WBC (Auto) Urine Creatinine Urine Chloride Urine Total Protein Fluid Glucose Fluid Total Protein Vancomycin Trough Miscellaneous Test Crossmatch See Detail 05/23/18 05/23/18 05/23/18 09:03 09:03 17:34 WBC 26.3 H RBC 3.57 L Hgb 10.4 L Hct 31.1 L D MCV MCHC RDW Plt Count Lymph % (Auto) Mckean % (Auto) Lymph # Mckean # Seg Neutrophils % Seg Neuts % (Manual) Lymphocytes % (Manual) Seg Neutrophils # Seg Neutrophils # Man Lymphocytes # (Manual) PT 18.3 H INR 1.43 H APTT 40.0 H POC ABG pH POC ABG pCO2 POC ABG pO2 Sodium Potassium Chloride Carbon Dioxide BUN Creatinine Glucose POC Glucose 108 H Lactic Acid Calcium Phosphorus Magnesium Iron TIBC AST ALT Alkaline Phosphatase Lactate Dehydrogenase Total Creatine Kinase C-Reactive Protein Total Protein Albumin Prealbumin CA 19-9 Antigen Folate PTH Intact Urine WBC (Auto) Urine Creatinine Urine Chloride Urine Total Protein Fluid Glucose Fluid Total Protein Vancomycin Trough Miscellaneous Test Crossmatch 05/23/18 05/24/18 05/24/18 21:14 04:43 08:04 WBC RBC Hgb Hct MCV MCHC RDW Plt Count Lymph % (Auto) Mckean % (Auto) Lymph # Mckean # Seg Neutrophils % Seg Neuts % (Manual) Lymphocytes % (Manual) Seg Neutrophils # Seg Neutrophils # Man Lymphocytes # (Manual) PT INR APTT POC ABG pH POC ABG pCO2 POC ABG pO2 Sodium 146 H Potassium Chloride 108.6 H Carbon Dioxide BUN 33 H Creatinine Glucose 109 H POC Glucose 110 H 106 H Lactic Acid Calcium 8.3 L Phosphorus Magnesium 2.50 H Iron TIBC AST ALT Alkaline Phosphatase Lactate Dehydrogenase Total Creatine Kinase C-Reactive Protein Total Protein Albumin Prealbumin CA 19-9 Antigen Folate PTH Intact Urine WBC (Auto) Urine Creatinine Urine Chloride Urine Total Protein Fluid Glucose Fluid Total Protein Vancomycin Trough Miscellaneous Test Crossmatch 05/25/18 05/25/18 05/25/18 05:42 05:49 19:50 WBC RBC Hgb Hct MCV MCHC RDW Plt Count Lymph % (Auto) Mcke[place] % (Auto) Lymph # Mckean # Seg Neutrophils % Seg Neuts % (Manual) Lymphocytes % (Manual) Seg Neutrophils # Seg Neutrophils # Man Lymphocytes # (Manual) PT INR APTT POC ABG pH POC ABG pCO2 POC ABG pO2 Sodium 150 H Potassium Chloride 112.5 H Carbon Dioxide BUN 34 H Creatinine Glucose 102 H POC Glucose 107 H Lactic Acid Calcium Phosphorus Magnesium Iron TIBC AST ALT Alkaline Phosphatase Lactate Dehydrogenase Total Creatine Kinase C-Reactive Protein 34.50 H Total Protein Albumin Prealbumin CA 19-9 Antigen Folate PTH Intact Urine WBC (Auto) Urine Creatinine Urine Chloride Urine Total Protein Fluid Glucose Fluid Total Protein Vancomycin Trough Miscellaneous Test Crossmatch 05/25/18 05/25/18 05/25/18 19:50 21:05 22:46 WBC RBC Hgb Hct MCV MCHC RDW Plt Count Lymph % (Auto) Mckean % (Auto) Lymph # Mckean # Seg Neutrophils % Seg Neuts % (Manual) Lymphocytes % (Manual) Seg Neutrophils # Seg Neutrophils # Man Lymphocytes # (Manual) PT INR APTT POC ABG pH 7.483 H POC ABG pCO2 24.0 L POC ABG pO2 72 L Sodium Potassium Chloride Carbon Dioxide BUN Creatinine Glucose POC Glucose Lactic Acid 5.90 H* Calcium Phosphorus Magnesium Iron TIBC AST ALT Alkaline Phosphatase Lactate Dehydrogenase Total Creatine Kinase C-Reactive Protein Total Protein Albumin Prealbumin CA 19-9 Antigen Folate PTH Intact Urine WBC (Auto) Urine Creatinine Urine Chloride Urine Total Protein Fluid Glucose Fluid Total Protein Vancomycin Trough 25.1 H Miscellaneous Test Crossmatch 05/25/18 05/26/18 05/26/18 22:46 00:21 00:51 WBC RBC Hgb Hct MCV MCHC RDW Plt Count Lymph % (Auto) Mckean % (Auto) Lymph # Mckean # Seg Neutrophils % Seg Neuts % (Manual) Lymphocytes % (Manual) Seg Neutrophils # Seg Neutrophils # Man Lymphocytes # (Manual) PT INR APTT POC ABG pH POC ABG pCO2 POC ABG pO2 Sodium Potassium Chloride Carbon Dioxide BUN Creatinine Glucose POC Glucose 133 H Lactic Acid 8.10 H* 6.20 H* Calcium Phosphorus Magnesium Iron TIBC AST ALT Alkaline Phosphatase Lactate Dehydrogenase Total Creatine Kinase C-Reactive Protein Total Protein Albumin Prealbumin CA 19-9 Antigen Folate PTH Intact Urine WBC (Auto) Urine Creatinine Urine Chloride Urine Total Protein Fluid Glucose Fluid Total Protein Vancomycin Trough Miscellaneous Test Crossmatch 05/26/18 05/26/18 05/26/18 01:13 02:24 02:24 WBC 18.7 H RBC Hgb 11.6 L Hct MCV MCHC RDW Plt Count Lymph % (Auto) Mcke[place] % (Auto) Lymph # Mckean # Seg Neutrophils % Seg Neuts % (Manual) Lymphocytes % (Manual) Seg Neutrophils # Seg Neutrophils # Man Lymphocytes # (Manual) PT INR APTT POC ABG pH POC ABG pCO2 POC ABG pO2 Sodium 147 H Potassium 6.2 H* D Chloride 111.9 H Carbon Dioxide 19 L BUN 80 H Creatinine 5.1 H D Glucose 112 H POC Glucose Lactic Acid 5.20 H* Calcium 6.7 L D Phosphorus Magnesium Iron TIBC AST ALT Alkaline Phosphatase Lactate Dehydrogenase Total Creatine Kinase C-Reactive Protein Total Protein Albumin Prealbumin CA 19-9 Antigen Folate PTH Intact Urine WBC (Auto) Urine Creatinine Urine Chloride Urine Total Protein Fluid Glucose Fluid Total Protein Vancomycin Trough Miscellaneous Test Crossmatch 05/26/18 05/26/18 05/26/18 04:20 04:20 05:39 WBC RBC Hgb Hct MCV MCHC RDW Plt Count Lymph % (Auto) Mckean % (Auto) Lymph # Mckean # Seg Neutrophils % Seg Neuts % (Manual) Lymphocytes % (Manual) Seg Neutrophils # Seg Neutrophils # Man Lymphocytes # (Manual) PT INR APTT POC ABG pH POC ABG pCO2 POC ABG pO2 Sodium 150 H Potassium Chloride 110.0 H Carbon Dioxide 19 L BUN 66 H Creatinine Glucose 166 H POC Glucose 187 H Lactic Acid 5.10 H* Calcium 6.9 L Phosphorus 6.70 H D Magnesium Iron TIBC AST ALT Alkaline Phosphatase Lactate Dehydrogenase Total Creatine Kinase C-Reactive Protein Total Protein Albumin Prealbumin CA 19-9 Antigen Folate PTH Intact Urine WBC (Auto) Urine Creatinine Urine Chloride Urine Total Protein Fluid Glucose Fluid Total Protein Vancomycin Trough Miscellaneous Test Crossmatch 05/26/18 05/26/18 05/26/18 06:02 07:29 11:00 WBC RBC Hgb Hct MCV MCHC RDW Plt Count Lymph % (Auto) Mckean % (Auto) Lymph # Mckean # Seg Neutrophils % Seg Neuts % (Manual) Lymphocytes % (Manual) Seg Neutrophils # Seg Neutrophils # Man Lymphocytes # (Manual) PT INR APTT POC ABG pH POC ABG pCO2 28.8 L POC ABG pO2 Sodium Potassium Chloride Carbon Dioxide BUN Creatinine Glucose POC Glucose Lactic Acid 4.80 H* 3.80 H* Calcium Phosphorus Magnesium Iron TIBC AST ALT Alkaline Phosphatase Lactate Dehydrogenase Total Creatine Kinase C-Reactive Protein Total Protein Albumin Prealbumin CA 19-9 Antigen Folate PTH Intact Urine WBC (Auto) Urine Creatinine Urine Chloride Urine Total Protein Fluid Glucose Fluid Total Protein Vancomycin Trough Miscellaneous Test Crossmatch 05/26/18 05/26/18 05/26/18 11:01 12:28 18:00 WBC RBC Hgb Hct MCV MCHC RDW Plt Count Lymph % (Auto) Mcke[place] % (Auto) Lymph # Mckean # Seg Neutrophils % Seg Neuts % (Manual) Lymphocytes % (Manual) Seg Neutrophils # Seg Neutrophils # Man Lymphocytes # (Manual) PT INR APTT POC ABG pH POC ABG pCO2 POC ABG pO2 Sodium 150 H 151 H Potassium 5.3 H D 6.1 H* Chloride 110.3 H 117.0 H Carbon Dioxide 21 L 20 L BUN 75 H 77 H Creatinine 4.3 H D 4.6 H Glucose 161 H POC Glucose 114 H Lactic Acid Calcium 7.5 L 6.7 L Phosphorus Magnesium Iron TIBC AST 1041 H ALT 406 H Alkaline Phosphatase 281 H Lactate Dehydrogenase Total Creatine Kinase C-Reactive Protein Total Protein 4.4 L Albumin 1.3 L Prealbumin CA 19-9 Antigen Folate PTH Intact Urine WBC (Auto) Urine Creatinine Urine Chloride Urine Total Protein Fluid Glucose Fluid Total Protein Vancomycin Trough Miscellaneous Test Crossmatch 05/26/18 05/26/18 05/27/18 18:02 19:17 01:01 WBC 21.7 H RBC 2.70 L Hgb 7.8 L D Hct 24.6 L D MCV MCHC RDW 15.3 H Plt Count Lymph % (Auto) Mckean % (Auto) Lymph # Mckean # Seg Neutrophils % Seg Neuts % (Manual) 94.0 H Lymphocytes % (Manual) 3.0 L Seg Neutrophils # Seg Neutrophils # Man 20.4 H Lymphocytes # (Manual) 0.7 L PT INR APTT POC ABG pH 7.159 L 7.205 L POC ABG pCO2 54.5 H 53.0 H POC ABG pO2 252 H Sodium Potassium Chloride Carbon Dioxide BUN Creatinine Glucose POC Glucose Lactic Acid Calcium Phosphorus Magnesium Iron TIBC AST ALT Alkaline Phosphatase Lactate Dehydrogenase Total Creatine Kinase C-Reactive Protein Total Protein Albumin Prealbumin CA 19-9 Antigen Folate PTH Intact Urine WBC (Auto) Urine Creatinine Urine Chloride Urine Total Protein Fluid Glucose Fluid Total Protein Vancomycin Trough Miscellaneous Test Crossmatch 05/27/18 05/27/18 05/27/18 05:15 05:15 06:11 WBC 24.9 H RBC 2.86 L Hgb 8.1 L Hct 25.9 L MCV MCHC RDW 15.5 H Plt Count Lymph % (Auto) [place]kean % (Auto) Lymph # Mckean # Seg Neutrophils % Seg Neuts % (Manual) Lymphocytes % (Manual) Seg Neutrophils # Seg Neutrophils # Man Lymphocytes # (Manual) PT INR APTT POC ABG pH 7.265 L POC ABG pCO2 46.2 H POC ABG pO2 111 H Sodium 149 H Potassium 6.9 H* Chloride 113.5 H Carbon Dioxide BUN 89 H Creatinine 5.2 H Glucose 118 H POC Glucose Lactic Acid Calcium 7.0 L Phosphorus 9.70 H D Magnesium Iron TIBC AST 876 H ALT 408 H Alkaline Phosphatase Lactate Dehydrogenase Total Creatine Kinase C-Reactive Protein Total Protein 5.2 L Albumin 1.5 L Prealbumin CA 19-9 Antigen Folate PTH Intact Urine WBC (Auto) Urine Creatinine Urine Chloride Urine Total Protein Fluid Glucose Fluid Total Protein Vancomycin Trough Miscellaneous Test Crossmatch 05/27/18 05/27/18 05/27/18 08:48 10:22 10:22 WBC RBC Hgb Hct MCV MCHC RDW Plt Count Lymph % (Auto) Mcke[place] % (Auto) Lymph # Mckean # Seg Neutrophils % Seg Neuts % (Manual) Lymphocytes % (Manual) Seg Neutrophils # Seg Neutrophils # Man Lymphocytes # (Manual) PT INR APTT POC ABG pH POC ABG pCO2 POC ABG pO2 Sodium 146 H Potassium 6.1 H* Chloride 108.2 H Carbon Dioxide 21 L BUN 88 H Creatinine 5.6 H Glucose 163 H POC Glucose 164 H Lactic Acid Calcium 6.7 L Phosphorus Magnesium Iron TIBC AST ALT Alkaline Phosphatase Lactate Dehydrogenase Total Creatine Kinase C-Reactive Protein 40.70 H Total Protein Albumin Prealbumin CA 19-9 Antigen Folate PTH Intact Urine WBC (Auto) Urine Creatinine Urine Chloride Urine Total Protein Fluid Glucose Fluid Total Protein Vancomycin Trough Miscellaneous Test Crossmatch 05/27/18 05/27/18 05/27/18 13:02 17:39 23:27 WBC RBC Hgb Hct MCV MCHC RDW Plt Count Lymph % (Auto) Mckean % (Auto) Lymph # Mckean # Seg Neutrophils % Seg Neuts % (Manual) Lymphocytes % (Manual) Seg Neutrophils # Seg Neutrophils # Man Lymphocytes # (Manual) PT INR APTT POC ABG pH POC ABG pCO2 POC ABG pO2 Sodium Potassium Chloride Carbon Dioxide BUN Creatinine Glucose POC Glucose 59 L 132 H Lactic Acid Calcium Phosphorus Magnesium Iron TIBC AST ALT Alkaline Phosphatase Lactate Dehydrogenase Total Creatine Kinase C-Reactive Protein Total Protein Albumin Prealbumin CA 19-9 Antigen Folate PTH Intact Urine WBC (Auto) Urine Creatinine Urine Chloride Urine Total Protein Fluid Glucose Fluid Total Protein Vancomycin Trough Miscellaneous Test Flexitest 1 H Crossmatch 05/27/18 05/28/18 05/28/18 Unknown 04:32 05:00 WBC RBC Hgb Hct MCV MCHC RDW Plt Count Lymph % (Auto) Mcke[place] % (Auto) Lymph # Mckean # Seg Neutrophils % Seg Neuts % (Manual) Lymphocytes % (Manual) Seg Neutrophils # Seg Neutrophils # Man Lymphocytes # (Manual) PT INR APTT POC ABG pH POC ABG pCO2 POC ABG pO2 134 H Sodium Potassium Chloride Carbon Dioxide BUN 69 H Creatinine 4.4 H Glucose 118 H POC Glucose Lactic Acid Calcium 8.0 L D Phosphorus 6.80 H D Magnesium Iron TIBC AST ALT Alkaline Phosphatase Lactate Dehydrogenase Total Creatine Kinase C-Reactive Protein Total Protein Albumin Prealbumin CA 19-9 Antigen Folate PTH Intact Urine WBC (Auto) 120.0 H Urine Creatinine Urine Chloride Urine Total Protein Fluid Glucose Fluid Total Protein Vancomycin Trough Miscellaneous Test Crossmatch 05/28/18 05/28/18 05/28/18 05:00 05:27 13:04 WBC 26.5 H RBC 2.69 L Hgb 7.7 L Hct 23.6 L MCV MCHC RDW Plt Count Lymph % (Auto) Mckean % (Auto) Lymph # Mckean # Seg Neutrophils % Seg Neuts % (Manual) 96.0 H Lymphocytes % (Manual) 0 L Seg Neutrophils # Seg Neutrophils # Man 25.4 H Lymphocytes # (Manual) 0.0 L PT INR APTT POC ABG pH POC ABG pCO2 POC ABG pO2 Sodium Potassium Chloride Carbon Dioxide BUN Creatinine Glucose POC Glucose 128 H 155 H Lactic Acid Calcium Phosphorus Magnesium Iron TIBC AST ALT Alkaline Phosphatase Lactate Dehydrogenase Total Creatine Kinase C-Reactive Protein Total Protein Albumin Prealbumin CA 19-9 Antigen Folate PTH Intact Urine WBC (Auto) Urine Creatinine Urine Chloride Urine Total Protein Fluid Glucose Fluid Total Protein Vancomycin Trough Miscellaneous Test Crossmatch 05/28/18 05/29/18 05/29/18 17:56 03:35 04:00 WBC RBC Hgb Hct MCV MCHC RDW Plt Count Lymph % (Auto) Mckean % (Auto) Lymph # Mckean # Seg Neutrophils % Seg Neuts % (Manual) Lymphocytes % (Manual) Seg Neutrophils # Seg Neutrophils # Man Lymphocytes # (Manual) PT INR APTT POC ABG pH 7.471 H POC ABG pCO2 POC ABG pO2 78 L Sodium Potassium Chloride Carbon Dioxide BUN 50 H Creatinine 3.9 H Glucose POC Glucose 110 H Lactic Acid Calcium 7.7 L Phosphorus Magnesium 1.50 L Iron TIBC AST 218 H ALT 204 H Alkaline Phosphatase Lactate Dehydrogenase Total Creatine Kinase C-Reactive Protein Total Protein 5.4 L Albumin 1.6 L Prealbumin CA 19-9 Antigen Folate PTH Intact Urine WBC (Auto) Urine Creatinine Urine Chloride Urine Total Protein Fluid Glucose Fluid Total Protein Vancomycin Trough Miscellaneous Test Crossmatch 05/29/18 05/29/18 05/30/18 11:51 23:56 04:54 WBC RBC Hgb Hct MCV MCHC RDW Plt Count Lymph % (Auto) [place] % (Auto) Lymph # [place] # Seg Neutrophils % Seg Neuts % (Manual) Lymphocytes % (Manual) Seg Neutrophils # Seg Neutrophils # Man Lymphocytes # (Manual) PT INR APTT POC ABG pH POC ABG pCO2 POC ABG pO2 Sodium Potassium Chloride Carbon Dioxide BUN Creatinine Glucose POC Glucose 131 H 119 H 115 H Lactic Acid Calcium Phosphorus Magnesium Iron TIBC AST ALT Alkaline Phosphatase Lactate Dehydrogenase Total Creatine Kinase C-Reactive Protein Total Protein Albumin Prealbumin CA 19-9 Antigen Folate PTH Intact Urine WBC (Auto) Urine Creatinine Urine Chloride Urine Total Protein Fluid Glucose Fluid Total Protein Vancomycin Trough Miscellaneous Test Crossmatch 05/30/18 05/30/18 05/30/18 05:07 05:15 05:15 WBC 16.2 H RBC 2.53 L Hgb 7.4 L Hct 21.9 L MCV MCHC RDW Plt Count Lymph % (Auto) [place] % (Auto) Lymph # [place] # Seg Neutrophils % Seg Neuts % (Manual) Lymphocytes % (Manual) Seg Neutrophils # Seg Neutrophils # Man Lymphocytes # (Manual) PT INR APTT POC ABG pH POC ABG pCO2 34.5 L POC ABG pO2 133 H Sodium 135 L Potassium Chloride 97.5 L Carbon Dioxide BUN 69 H Creatinine 5.4 H Glucose 105 H POC Glucose Lactic Acid Calcium 7.5 L Phosphorus 5.30 H D Magnesium Iron TIBC AST ALT Alkaline Phosphatase Lactate Dehydrogenase Total Creatine Kinase C-Reactive Protein Total Protein Albumin Prealbumin CA 19-9 Antigen Folate PTH Intact Urine WBC (Auto) Urine Creatinine Urine Chloride Urine Total Protein Fluid Glucose Fluid Total Protein Vancomycin Trough Miscellaneous Test Crossmatch 05/30/18 05/30/18 05/31/18 12:13 17:10 04:50 WBC 18.7 H RBC 2.86 L Hgb 8.2 L Hct 24.8 L MCV MCHC RDW Plt Count Lymph % (Auto) [place] % (Auto) Lymph # [place] # Seg Neutrophils % Seg Neuts % (Manual) 91.0 H Lymphocytes % (Manual) 2.0 L Seg Neutrophils # Seg Neutrophils # Man 17.0 H Lymphocytes # (Manual) 0.4 L PT INR APTT POC ABG pH POC ABG pCO2 POC ABG pO2 Sodium Potassium Chloride Carbon Dioxide BUN Creatinine Glucose POC Glucose 132 H 122 H Lactic Acid Calcium Phosphorus Magnesium Iron TIBC AST ALT Alkaline Phosphatase Lactate Dehydrogenase Total Creatine Kinase C-Reactive Protein Total Protein Albumin Prealbumin CA 19-9 Antigen Folate PTH Intact Urine WBC (Auto) Urine Creatinine Urine Chloride Urine Total Protein Fluid Glucose Fluid Total Protein Vancomycin Trough Miscellaneous Test Crossmatch 05/31/18 05/31/18 05/31/18 04:50 05:45 11:37 WBC RBC Hgb Hct MCV MCHC RDW Plt Count Lymph % (Auto) [place] % (Auto) Lymph # [place] # Seg Neutrophils % Seg Neuts % (Manual) Lymphocytes % (Manual) Seg Neutrophils # Seg Neutrophils # Man Lymphocytes # (Manual) PT INR APTT POC ABG pH POC ABG pCO2 POC ABG pO2 Sodium 132 L Potassium Chloride 92.4 L Carbon Dioxide BUN 77 H Creatinine 5.9 H Glucose POC Glucose 111 H 136 H Lactic Acid Calcium 7.3 L Phosphorus 6.40 H D Magnesium Iron TIBC AST ALT Alkaline Phosphatase Lactate Dehydrogenase Total Creatine Kinase C-Reactive Protein Total Protein Albumin Prealbumin CA 19-9 Antigen Folate PTH Intact Urine WBC (Auto) Urine Creatinine Urine Chloride Urine Total Protein Fluid Glucose Fluid Total Protein Vancomycin Trough Miscellaneous Test Crossmatch 05/31/18 06/01/18 06/01/18 17:52 00:09 04:00 WBC RBC Hgb Hct MCV MCHC RDW Plt Count Lymph % (Auto) [place] % (Auto) Lymph # [place] # Seg Neutrophils % Seg Neuts % (Manual) Lymphocytes % (Manual) Seg Neutrophils # Seg Neutrophils # Man Lymphocytes # (Manual) PT INR APTT POC ABG pH POC ABG pCO2 POC ABG pO2 Sodium Potassium Chloride 97.5 L Carbon Dioxide BUN 49 H Creatinine 4.2 H Glucose 104 H POC Glucose 115 H 114 H Lactic Acid Calcium 7.3 L Phosphorus 4.70 H D Magnesium Iron TIBC AST ALT Alkaline Phosphatase Lactate Dehydrogenase Total Creatine Kinase C-Reactive Protein Total Protein Albumin Prealbumin CA 19-9 Antigen Folate PTH Intact Urine WBC (Auto) Urine Creatinine Urine Chloride Urine Total Protein Fluid Glucose Fluid Total Protein Vancomycin Trough Miscellaneous Test Crossmatch 06/01/18 06/01/18 06/02/18 11:10 17:56 00:15 WBC RBC Hgb Hct MCV MCHC RDW Plt Count Lymph % (Auto) [place] % (Auto) Lymph # [place] # Seg Neutrophils % Seg Neuts % (Manual) Lymphocytes % (Manual) Seg Neutrophils # Seg Neutrophils # Man Lymphocytes # (Manual) PT INR APTT POC ABG pH POC ABG pCO2 POC ABG pO2 Sodium Potassium Chloride Carbon Dioxide BUN Creatinine Glucose POC Glucose 123 H 126 H 135 H Lactic Acid Calcium Phosphorus Magnesium Iron TIBC AST ALT Alkaline Phosphatase Lactate Dehydrogenase Total Creatine Kinase C-Reactive Protein Total Protein Albumin Prealbumin CA 19-9 Antigen Folate PTH Intact Urine WBC (Auto) Urine Creatinine Urine Chloride Urine Total Protein Fluid Glucose Fluid Total Protein Vancomycin Trough Miscellaneous Test Crossmatch 06/02/18 06/02/18 06/02/18 05:23 12:42 13:05 WBC RBC Hgb Hct MCV MCHC RDW Plt Count Lymph % (Auto) [place] % (Auto) Lymph # [place] # Seg Neutrophils % Seg Neuts % (Manual) Lymphocytes % (Manual) Seg Neutrophils # Seg Neutrophils # Man Lymphocytes # (Manual) PT 17.1 H INR 1.34 H APTT POC ABG pH POC ABG pCO2 POC ABG pO2 Sodium Potassium Chloride Carbon Dioxide BUN Creatinine Glucose POC Glucose 135 H 142 H Lactic Acid Calcium Phosphorus Magnesium Iron TIBC AST ALT Alkaline Phosphatase Lactate Dehydrogenase Total Creatine Kinase C-Reactive Protein Total Protein Albumin Prealbumin CA 19-9 Antigen Folate PTH Intact Urine WBC (Auto) Urine Creatinine Urine Chloride Urine Total Protein Fluid Glucose Fluid Total Protein Vancomycin Trough Miscellaneous Test Crossmatch 06/02/18 06/02/18 06/03/18 Unknown Unknown 00:54 WBC 20.8 H RBC 2.67 L Hgb 7.7 L Hct 23.0 L MCV MCHC RDW Plt Count 500 H Lymph % (Auto) [place] % (Auto) Lymph # [place] # Seg Neutrophils % Seg Neuts % (Manual) Lymphocytes % (Manual) Seg Neutrophils # Seg Neutrophils # Man Lymphocytes # (Manual) PT INR APTT POC ABG pH POC ABG pCO2 POC ABG pO2 Sodium 136 L Potassium 3.5 L Chloride 96.9 L Carbon Dioxide BUN 62 H Creatinine 4.9 H Glucose 133 H POC Glucose 125 H Lactic Acid Calcium 7.2 L Phosphorus 5.00 H Magnesium Iron TIBC AST 46 H ALT 66 H Alkaline Phosphatase Lactate Dehydrogenase Total Creatine Kinase C-Reactive Protein Total Protein 5.7 L Albumin 1.5 L Prealbumin CA 19-9 Antigen Folate PTH Intact Urine WBC (Auto) Urine Creatinine Urine Chloride Urine Total Protein Fluid Glucose Fluid Total Protein Vancomycin Trough Miscellaneous Test Crossmatch 06/03/18 06/03/18 06/03/18 03:31 09:18 09:18 WBC RBC Hgb Hct MCV MCHC RDW Plt Count Lymph % (Auto) [place] % (Auto) Lymph # [place] # Seg Neutrophils % Seg Neuts % (Manual) Lymphocytes % (Manual) Seg Neutrophils # Seg Neutrophils # Man Lymphocytes # (Manual) PT 17.1 H INR 1.34 H APTT POC ABG pH POC ABG pCO2 POC ABG pO2 Sodium 136 L Potassium Chloride Carbon Dioxide BUN 41 H Creatinine 3.4 H Glucose 129 H POC Glucose Lactic Acid Calcium 7.4 L Phosphorus Magnesium Iron TIBC AST ALT Alkaline Phosphatase Lactate Dehydrogenase Total Creatine Kinase C-Reactive Protein 11.10 H Total Protein Albumin Prealbumin CA 19-9 Antigen Folate PTH Intact Urine WBC (Auto) Urine Creatinine Urine Chloride Urine Total Protein Fluid Glucose Fluid Total Protein Vancomycin Trough Miscellaneous Test Crossmatch 06/03/18 06/03/18 06/03/18 16:07 21:18 Unknown WBC RBC Hgb Hct MCV MCHC RDW Plt Count Lymph % (Auto) [place] % (Auto) Lymph # [place] # Seg Neutrophils % Seg Neuts % (Manual) Lymphocytes % (Manual) Seg Neutrophils # Seg Neutrophils # Man Lymphocytes # (Manual) PT INR APTT POC ABG pH POC ABG pCO2 POC ABG pO2 Sodium Potassium Chloride Carbon Dioxide BUN Creatinine Glucose POC Glucose 144 H 128 H Lactic Acid Calcium Phosphorus Magnesium Iron TIBC AST ALT Alkaline Phosphatase Lactate Dehydrogenase Total Creatine Kinase C-Reactive Protein Total Protein Albumin Prealbumin CA 19-9 Antigen Folate PTH Intact Urine WBC (Auto) Urine Creatinine Urine Chloride Urine Total Protein Fluid Glucose 10 L Fluid Total Protein 3.7 L Vancomycin Trough Miscellaneous Test Crossmatch 06/04/18 06/04/18 06/04/18 04:31 06:14 11:38 WBC RBC Hgb Hct MCV MCHC RDW Plt Count Lymph % (Auto) [place] % (Auto) Lymph # [place] # Seg Neutrophils % Seg Neuts % (Manual) Lymphocytes % (Manual) Seg Neutrophils # Seg Neutrophils # Man Lymphocytes # (Manual) PT INR APTT POC ABG pH POC ABG pCO2 POC ABG pO2 Sodium Potassium Chloride Carbon Dioxide BUN 55 H Creatinine 3.7 H Glucose 151 H POC Glucose 145 H 129 H Lactic Acid Calcium 7.8 L Phosphorus 4.60 H Magnesium Iron TIBC AST ALT Alkaline Phosphatase Lactate Dehydrogenase Total Creatine Kinase C-Reactive Protein Total Protein Albumin Prealbumin CA 19-9 Antigen Folate PTH Intact Urine WBC (Auto) Urine Creatinine Urine Chloride Urine Total Protein Fluid Glucose Fluid Total Protein Vancomycin Trough Miscellaneous Test Crossmatch 06/04/18 06/04/18 06/04/18 17:09 20:00 21:29 WBC RBC Hgb 8.8 L Hct 27.3 L MCV MCHC RDW Plt Count Lymph % (Auto) [place] % (Auto) Lymph # [place] # Seg Neutrophils % Seg Neuts % (Manual) Lymphocytes % (Manual) Seg Neutrophils # Seg Neutrophils # Man Lymphocytes # (Manual) PT INR APTT POC ABG pH POC ABG pCO2 POC ABG pO2 Sodium Potassium Chloride Carbon Dioxide BUN Creatinine Glucose POC Glucose 142 H 130 H Lactic Acid Calcium Phosphorus Magnesium Iron TIBC AST ALT Alkaline Phosphatase Lactate Dehydrogenase Total Creatine Kinase C-Reactive Protein Total Protein Albumin Prealbumin CA 19-9 Antigen Folate PTH Intact Urine WBC (Auto) Urine Creatinine Urine Chloride Urine Total Protein Fluid Glucose Fluid Total Protein Vancomycin Trough Miscellaneous Test Crossmatch 06/05/18 06/05/18 06/05/18 06:30 07:00 07:00 WBC 19.3 H RBC 2.94 L Hgb 8.3 L Hct 25.6 L MCV MCHC RDW 15.7 H Plt Count 568 H Lymph % (Auto) 4.7 L [place] % (Auto) Lymph # 0.9 L [place] # 1.1 H Seg Neutrophils % 88.9 H Seg Neuts % (Manual) Lymphocytes % (Manual) Seg Neutrophils # 17.2 H Seg Neutrophils # Man Lymphocytes # (Manual) PT INR APTT POC ABG pH POC ABG pCO2 POC ABG pO2 Sodium Potassium 3.4 L D Chloride Carbon Dioxide BUN 67 H Creatinine 3.6 H Glucose 145 H POC Glucose 153 H Lactic Acid Calcium 7.9 L Phosphorus 4.60 H Magnesium Iron TIBC AST ALT Alkaline Phosphatase Lactate Dehydrogenase Total Creatine Kinase C-Reactive Protein Total Protein Albumin Prealbumin CA 19-9 Antigen Folate PTH Intact Urine WBC (Auto) Urine Creatinine Urine Chloride Urine Total Protein Fluid Glucose Fluid Total Protein Vancomycin Trough Miscellaneous Test Crossmatch 06/05/18 06/05/18 06/06/18 12:10 16:01 06:39 WBC RBC Hgb Hct MCV MCHC RDW Plt Count Lymph % (Auto) [place] % (Auto) Lymph # [place] # Seg Neutrophils % Seg Neuts % (Manual) Lymphocytes % (Manual) Seg Neutrophils # Seg Neutrophils # Man Lymphocytes # (Manual) PT INR APTT POC ABG pH POC ABG pCO2 POC ABG pO2 Sodium Potassium Chloride Carbon Dioxide BUN Creatinine Glucose POC Glucose 150 H 129 H 131 H Lactic Acid Calcium Phosphorus Magnesium Iron TIBC AST ALT Alkaline Phosphatase Lactate Dehydrogenase Total Creatine Kinase C-Reactive Protein Total Protein Albumin Prealbumin CA 19-9 Antigen Folate PTH Intact Urine WBC (Auto) Urine Creatinine Urine Chloride Urine Total Protein Fluid Glucose Fluid Total Protein Vancomycin Trough Miscellaneous Test Crossmatch 06/06/18 06/06/18 06/06/18 07:14 07:14 07:14 WBC 16.5 H RBC 2.84 L Hgb 8.1 L Hct 25.2 L MCV MCHC RDW 16.4 H Plt Count 526 H Lymph % (Auto) 6.5 L [place] % (Auto) Lymph # 1.1 L [place] # 1.2 H Seg Neutrophils % 85.3 H Seg Neuts % (Manual) Lymphocytes % (Manual) Seg Neutrophils # 14.1 H Seg Neutrophils # Man Lymphocytes # (Manual) PT INR APTT POC ABG pH POC ABG pCO2 POC ABG pO2 Sodium Potassium Chloride 109.1 H Carbon Dioxide 21 L BUN 76 H Creatinine 3.5 H Glucose 111 H POC Glucose Lactic Acid Calcium 8.1 L Phosphorus Magnesium Iron TIBC AST ALT Alkaline Phosphatase Lactate Dehydrogenase Total Creatine Kinase C-Reactive Protein 4.70 H Total Protein Albumin Prealbumin CA 19-9 Antigen Folate PTH Intact Urine WBC (Auto) Urine Creatinine Urine Chloride Urine Total Protein Fluid Glucose Fluid Total Protein Vancomycin Trough Miscellaneous Test Crossmatch 06/06/18 06/06/18 06/06/18 11:15 18:00 23:58 WBC RBC Hgb Hct MCV MCHC RDW Plt Count Lymph % (Auto) [place] % (Auto) Lymph # [place] # Seg Neutrophils % Seg Neuts % (Manual) Lymphocytes % (Manual) Seg Neutrophils # Seg Neutrophils # Man Lymphocytes # (Manual) PT INR APTT POC ABG pH POC ABG pCO2 POC ABG pO2 Sodium Potassium Chloride Carbon Dioxide BUN Creatinine Glucose POC Glucose 127 H 130 H 114 H Lactic Acid Calcium Phosphorus Magnesium Iron TIBC AST ALT Alkaline Phosphatase Lactate Dehydrogenase Total Creatine Kinase C-Reactive Protein Total Protein Albumin Prealbumin CA 19-9 Antigen Folate PTH Intact Urine WBC (Auto) Urine Creatinine Urine Chloride Urine Total Protein Fluid Glucose Fluid Total Protein Vancomycin Trough Miscellaneous Test Crossmatch 06/07/18 06/07/18 06/07/18 05:45 05:45 05:54 WBC 15.5 H RBC 2.60 L Hgb 7.4 L Hct 23.1 L MCV MCHC RDW 16.5 H Plt Count 506 H Lymph % (Auto) 5.3 L [place] % (Auto) Lymph # 0.8 L [place] # 1.0 H Seg Neutrophils % 86.6 H Seg Neuts % (Manual) Lymphocytes % (Manual) Seg Neutrophils # 13.4 H Seg Neutrophils # Man Lymphocytes # (Manual) PT INR APTT POC ABG pH POC ABG pCO2 POC ABG pO2 Sodium Potassium Chloride 108.4 H Carbon Dioxide BUN 84 H Creatinine 3.5 H Glucose 119 H POC Glucose 114 H Lactic Acid Calcium 8.1 L Phosphorus 5.10 H Magnesium Iron TIBC AST ALT Alkaline Phosphatase Lactate Dehydrogenase Total Creatine Kinase C-Reactive Protein Total Protein Albumin Prealbumin CA 19-9 Antigen Folate PTH Intact Urine WBC (Auto) Urine Creatinine Urine Chloride Urine Total Protein Fluid Glucose Fluid Total Protein Vancomycin Trough Miscellaneous Test Crossmatch 06/07/18 06/08/18 06/08/18 12:15 05:05 05:24 WBC RBC Hgb Hct MCV MCHC RDW Plt Count Lymph % (Auto) [place] % (Auto) Lymph # [place] # Seg Neutrophils % Seg Neuts % (Manual) Lymphocytes % (Manual) Seg Neutrophils # Seg Neutrophils # Man Lymphocytes # (Manual) PT INR APTT POC ABG pH POC ABG pCO2 POC ABG pO2 Sodium 148 H Potassium Chloride 112.4 H Carbon Dioxide BUN 89 H Creatinine 3.4 H Glucose 120 H POC Glucose 148 H 115 H Lactic Acid Calcium 7.9 L Phosphorus Magnesium Iron TIBC AST ALT Alkaline Phosphatase Lactate Dehydrogenase Total Creatine Kinase C-Reactive Protein Total Protein Albumin Prealbumin CA 19-9 Antigen Folate PTH Intact Urine WBC (Auto) Urine Creatinine Urine Chloride Urine Total Protein Fluid Glucose Fluid Total Protein Vancomycin Trough Miscellaneous Test Crossmatch 06/08/18 06/08/18 06/08/18 21:36 21:43 21:43 WBC RBC 2.98 L Hgb 8.8 L Hct 26.6 L MCV MCHC RDW 16.7 H Plt Count 463 H Lymph % (Auto) 7.9 L [place] % (Auto) Lymph # 0.8 L [place] # Seg Neutrophils % 84.8 H Seg Neuts % (Manual) Lymphocytes % (Manual) Seg Neutrophils # 8.6 H Seg Neutrophils # Man Lymphocytes # (Manual) PT INR APTT POC ABG pH POC ABG pCO2 POC ABG pO2 Sodium Potassium Chloride Carbon Dioxide BUN Creatinine Glucose POC Glucose Lactic Acid Calcium Phosphorus Magnesium Iron TIBC AST ALT Alkaline Phosphatase Lactate Dehydrogenase 297 H Total Creatine Kinase C-Reactive Protein Total Protein Albumin Prealbumin CA 19-9 Antigen 57 H Folate PTH Intact Urine WBC (Auto) Urine Creatinine Urine Chloride Urine Total Protein Fluid Glucose Fluid Total Protein Vancomycin Trough Miscellaneous Test Crossmatch 06/09/18 06/09/18 06/09/18 00:05 05:34 05:50 WBC RBC Hgb Hct MCV MCHC RDW Plt Count Lymph % (Auto) [place] % (Auto) Lymph # [place] # Seg Neutrophils % Seg Neuts % (Manual) Lymphocytes % (Manual) Seg Neutrophils # Seg Neutrophils # Man Lymphocytes # (Manual) PT INR APTT POC ABG pH POC ABG pCO2 POC ABG pO2 Sodium 153 H Potassium Chloride 117.3 H Carbon Dioxide BUN 84 H Creatinine 3.2 H Glucose 117 H POC Glucose 140 H 146 H Lactic Acid Calcium 7.9 L Phosphorus Magnesium Iron TIBC AST ALT Alkaline Phosphatase Lactate Dehydrogenase Total Creatine Kinase C-Reactive Protein Total Protein Albumin Prealbumin CA 19-9 Antigen Folate PTH Intact Urine WBC (Auto) Urine Creatinine Urine Chloride Urine Total Protein Fluid Glucose Fluid Total Protein Vancomycin Trough Miscellaneous Test Crossmatch 06/09/18 06/09/18 06/09/18 05:50 07:37 10:34 WBC RBC 2.32 L Hgb 6.8 L Hct 20.7 L MCV MCHC RDW 16.7 H Plt Count Lymph % (Auto) [place] % (Auto) Lymph # [place] # Seg Neutrophils % Seg Neuts % (Manual) Lymphocytes % (Manual) Seg Neutrophils # Seg Neutrophils # Man Lymphocytes # (Manual) PT INR APTT POC ABG pH POC ABG pCO2 POC ABG pO2 Sodium 149 H Potassium Chloride 114.6 H Carbon Dioxide BUN 84 H Creatinine 3.1 H Glucose 137 H POC Glucose Lactic Acid Calcium 7.7 L Phosphorus Magnesium Iron TIBC AST ALT Alkaline Phosphatase Lactate Dehydrogenase Total Creatine Kinase C-Reactive Protein Total Protein Albumin Prealbumin CA 19-9 Antigen Folate PTH Intact Urine WBC (Auto) Urine Creatinine Urine Chloride Urine Total Protein Fluid Glucose Fluid Total Protein Vancomycin Trough Miscellaneous Test Flexitest 1 H Crossmatch 06/09/18 06/09/18 06/09/18 10:41 11:56 13:24 WBC RBC 2.43 L Hgb 7.2 L Hct 21.6 L MCV MCHC RDW 16.8 H Plt Count Lymph % (Auto) [place] % (Auto) Lymph # [place] # Seg Neutrophils % Seg Neuts % (Manual) Lymphocytes % (Manual) Seg Neutrophils # Seg Neutrophils # Man Lymphocytes # (Manual) PT INR APTT POC ABG pH POC ABG pCO2 POC ABG pO2 Sodium Potassium Chloride Carbon Dioxide BUN Creatinine Glucose POC Glucose 141 H Lactic Acid Calcium Phosphorus Magnesium Iron TIBC AST ALT Alkaline Phosphatase Lactate Dehydrogenase Total Creatine Kinase C-Reactive Protein Total Protein Albumin Prealbumin CA 19-9 Antigen Folate PTH Intact Urine WBC (Auto) Urine Creatinine Urine Chloride Urine Total Protein Fluid Glucose Fluid Total Protein Vancomycin Trough Miscellaneous Test Crossmatch See Detail 06/09/18 06/09/18 06/10/18 18:18 23:13 05:26 WBC RBC Hgb Hct MCV MCHC RDW Plt Count Lymph % (Auto) [place] % (Auto) Lymph # [place] # Seg Neutrophils % Seg Neuts % (Manual) Lymphocytes % (Manual) Seg Neutrophils # Seg Neutrophils # Man Lymphocytes # (Manual) PT INR APTT POC ABG pH POC ABG pCO2 POC ABG pO2 Sodium 148 H Potassium Chloride 114.7 H Carbon Dioxide 21 L BUN 79 H Creatinine 3.2 H Glucose 121 H POC Glucose 156 H 163 H Lactic Acid Calcium 7.8 L Phosphorus Magnesium 1.60 L Iron TIBC AST ALT Alkaline Phosphatase Lactate Dehydrogenase Total Creatine Kinase C-Reactive Protein Total Protein Albumin Prealbumin CA 19-9 Antigen Folate PTH Intact Urine WBC (Auto) Urine Creatinine Urine Chloride Urine Total Protein Fluid Glucose Fluid Total Protein Vancomycin Trough Miscellaneous Test Crossmatch 06/10/18 06/10/18 06/10/18 05:26 05:31 17:15 WBC 11.1 H RBC 3.07 L Hgb 9.1 L Hct 27.6 L D MCV MCHC RDW 17.4 H Plt Count Lymph % (Auto) [place] % (Auto) Lymph # [place] # Seg Neutrophils % Seg Neuts % (Manual) Lymphocytes % (Manual) Seg Neutrophils # Seg Neutrophils # Man Lymphocytes # (Manual) PT INR APTT POC ABG pH POC ABG pCO2 POC ABG pO2 Sodium Potassium Chloride Carbon Dioxide BUN Creatinine Glucose POC Glucose 128 H Lactic Acid Calcium Phosphorus Magnesium Iron TIBC AST ALT Alkaline Phosphatase Lactate Dehydrogenase Total Creatine Kinase C-Reactive Protein 3.60 H Total Protein Albumin Prealbumin CA 19-9 Antigen Folate PTH Intact Urine WBC (Auto) Urine Creatinine Urine Chloride Urine Total Protein Fluid Glucose Fluid Total Protein Vancomycin Trough Miscellaneous Test Crossmatch 06/11/18 06/11/18 06/11/18 01:13 05:41 05:41 WBC 14.6 H RBC 3.40 L Hgb 9.8 L Hct 30.7 L MCV MCHC RDW 18.1 H Plt Count Lymph % (Auto) [place] % (Auto) Lymph # [place] # Seg Neutrophils % Seg Neuts % (Manual) Lymphocytes % (Manual) Seg Neutrophils # Seg Neutrophils # Man Lymphocytes # (Manual) PT INR APTT POC ABG pH POC ABG pCO2 POC ABG pO2 Sodium Potassium Chloride 110.8 H Carbon Dioxide 18 L BUN 77 H Creatinine 3.0 H Glucose 116 H POC Glucose 126 H Lactic Acid Calcium 7.9 L Phosphorus Magnesium Iron TIBC AST ALT Alkaline Phosphatase Lactate Dehydrogenase Total Creatine Kinase C-Reactive Protein Total Protein Albumin Prealbumin CA 19-9 Antigen Folate PTH Intact Urine WBC (Auto) Urine Creatinine Urine Chloride Urine Total Protein Fluid Glucose Fluid Total Protein Vancomycin Trough Miscellaneous Test Crossmatch 06/11/18 06/11/18 06/11/18 06:20 07:41 07:41 WBC RBC Hgb Hct MCV MCHC RDW Plt Count Lymph % (Auto) [place] % (Auto) Lymph # [place] # Seg Neutrophils % Seg Neuts % (Manual) Lymphocytes % (Manual) Seg Neutrophils # Seg Neutrophils # Man Lymphocytes # (Manual) PT INR APTT POC ABG pH POC ABG pCO2 POC ABG pO2 Sodium Potassium Chloride Carbon Dioxide BUN Creatinine Glucose POC Glucose 136 H Lactic Acid Calcium Phosphorus Magnesium Iron TIBC AST ALT Alkaline Phosphatase Lactate Dehydrogenase Total Creatine Kinase C-Reactive Protein Total Protein Albumin Prealbumin CA 19-9 Antigen Folate PTH Intact Urine WBC (Auto) 10.0 H Urine Creatinine 41.2 H Urine Chloride 49.2 L Urine Total Protein 142 H Fluid Glucose Fluid Total Protein Vancomycin Trough Miscellaneous Test Crossmatch 06/11/18 06/12/18 06/12/18 18:35 00:34 04:12 WBC RBC 3.18 L Hgb 9.5 L Hct 28.7 L MCV MCHC RDW 18.5 H Plt Count Lymph % (Auto) 8.1 L [place] % (Auto) Lymph # 0.9 L [place] # Seg Neutrophils % 84.6 H Seg Neuts % (Manual) Lymphocytes % (Manual) Seg Neutrophils # 9.1 H Seg Neutrophils # Man Lymphocytes # (Manual) PT INR APTT POC ABG pH POC ABG pCO2 POC ABG pO2 Sodium Potassium Chloride Carbon Dioxide BUN Creatinine Glucose POC Glucose 125 H 129 H Lactic Acid Calcium Phosphorus Magnesium Iron TIBC AST ALT Alkaline Phosphatase Lactate Dehydrogenase Total Creatine Kinase C-Reactive Protein Total Protein Albumin Prealbumin CA 19-9 Antigen Folate PTH Intact Urine WBC (Auto) Urine Creatinine Urine Chloride Urine Total Protein Fluid Glucose Fluid Total Protein Vancomycin Trough Miscellaneous Test Crossmatch 06/12/18 06/12/18 06/12/18 04:12 06:30 11:43 WBC RBC Hgb Hct MCV MCHC RDW Plt Count Lymph % (Auto) [place] % (Auto) Lymph # [place] # Seg Neutrophils % Seg Neuts % (Manual) Lymphocytes % (Manual) Seg Neutrophils # Seg Neutrophils # Man Lymphocytes # (Manual) PT INR APTT POC ABG pH POC ABG pCO2 POC ABG pO2 Sodium Potassium Chloride 108.5 H Carbon Dioxide 21 L BUN 72 H Creatinine 3.0 H Glucose 122 H POC Glucose 129 H 126 H Lactic Acid Calcium 7.8 L Phosphorus Magnesium Iron TIBC AST 45 H ALT Alkaline Phosphatase 200 H Lactate Dehydrogenase Total Creatine Kinase 34 L C-Reactive Protein Total Protein Albumin 1.7 L Prealbumin CA 19-9 Antigen Folate PTH Intact Urine WBC (Auto) Urine Creatinine Urine Chloride Urine Total Protein Fluid Glucose Fluid Total Protein Vancomycin Trough Miscellaneous Test Crossmatch 06/12/18 06/12/18 06/13/18 16:00 23:56 03:44 WBC RBC Hgb Hct MCV MCHC RDW Plt Count Lymph % (Auto) [place] % (Auto) Lymph # [place] # Seg Neutrophils % Seg Neuts % (Manual) Lymphocytes % (Manual) Seg Neutrophils # Seg Neutrophils # Man Lymphocytes # (Manual) PT INR APTT POC ABG pH POC ABG pCO2 POC ABG pO2 Sodium Potassium Chloride Carbon Dioxide BUN Creatinine Glucose POC Glucose 123 H 128 H 121 H Lactic Acid Calcium Phosphorus Magnesium Iron TIBC AST ALT Alkaline Phosphatase Lactate Dehydrogenase Total Creatine Kinase C-Reactive Protein Total Protein Albumin Prealbumin CA 19-9 Antigen Folate PTH Intact Urine WBC (Auto) Urine Creatinine Urine Chloride Urine Total Protein Fluid Glucose Fluid Total Protein Vancomycin Trough Miscellaneous Test Crossmatch 06/13/18 06/13/18 06/14/18 05:59 11:29 01:08 WBC RBC Hgb Hct MCV MCHC RDW Plt Count Lymph % (Auto) [place] % (Auto) Lymph # [place] # Seg Neutrophils % Seg Neuts % (Manual) Lymphocytes % (Manual) Seg Neutrophils # Seg Neutrophils # Man Lymphocytes # (Manual) PT INR APTT POC ABG pH POC ABG pCO2 POC ABG pO2 Sodium 134 L Potassium Chloride Carbon Dioxide 20 L BUN 69 H Creatinine 2.9 H Glucose 113 H POC Glucose 124 H 128 H Lactic Acid Calcium 7.8 L Phosphorus Magnesium Iron TIBC AST ALT Alkaline Phosphatase Lactate Dehydrogenase Total Creatine Kinase C-Reactive Protein Total Protein Albumin Prealbumin CA 19-9 Antigen Folate PTH Intact Urine WBC (Auto) Urine Creatinine Urine Chloride Urine Total Protein Fluid Glucose Fluid Total Protein Vancomycin Trough Miscellaneous Test Crossmatch 06/14/18 06/14/18 06/14/18 06:42 06:42 09:50 WBC 11.3 H RBC 3.02 L Hgb 8.8 L Hct 27.3 L MCV MCHC RDW 18.6 H Plt Count Lymph % (Auto) Mckean % (Auto) Lymph # Mckean # Seg Neutrophils % Seg Neuts % (Manual) Lymphocytes % (Manual) Seg Neutrophils # Seg Neutrophils # Man Lymphocytes # (Manual) PT 16.3 H INR 1.24 H APTT POC ABG pH POC ABG pCO2 POC ABG pO2 Sodium 132 L Potassium Chloride Carbon Dioxide 19 L BUN 71 H Creatinine 3.1 H Glucose POC Glucose Lactic Acid Calcium 7.8 L Phosphorus Magnesium Iron TIBC AST ALT Alkaline Phosphatase Lactate Dehydrogenase Total Creatine Kinase C-Reactive Protein Total Protein Albumin Prealbumin CA 19-9 Antigen Folate PTH Intact Urine WBC (Auto) Urine Creatinine Urine Chloride Urine Total Protein Fluid Glucose Fluid Total Protein Vancomycin Trough Miscellaneous Test Crossmatch 06/14/18 06/14/18 06/15/18 12:31 17:04 01:18 WBC RBC Hgb Hct MCV MCHC RDW Plt Count Lymph % (Auto) Mcke[place] % (Auto) Lymph # Mckean # Seg Neutrophils % Seg Neuts % (Manual) Lymphocytes % (Manual) Seg Neutrophils # Seg Neutrophils # Man Lymphocytes # (Manual) PT INR APTT POC ABG pH POC ABG pCO2 POC ABG pO2 Sodium Potassium Chloride Carbon Dioxide BUN Creatinine Glucose POC Glucose 125 H 109 H 124 H Lactic Acid Calcium Phosphorus Magnesium Iron TIBC AST ALT Alkaline Phosphatase Lactate Dehydrogenase Total Creatine Kinase C-Reactive Protein Total Protein Albumin Prealbumin CA 19-9 Antigen Folate PTH Intact Urine WBC (Auto) Urine Creatinine Urine Chloride Urine Total Protein Fluid Glucose Fluid Total Protein Vancomycin Trough Miscellaneous Test Crossmatch 06/15/18 06/15/18 06/15/18 05:27 06:34 11:42 WBC RBC Hgb Hct MCV MCHC RDW Plt Count Lymph % (Auto) [place] % (Auto) Lymph # [place] # Seg Neutrophils % Seg Neuts % (Manual) Lymphocytes % (Manual) Seg Neutrophils # Seg Neutrophils # Man Lymphocytes # (Manual) PT INR APTT POC ABG pH POC ABG pCO2 POC ABG pO2 Sodium 134 L Potassium Chloride Carbon Dioxide 17 L BUN 77 H Creatinine 3.2 H Glucose 110 H POC Glucose 116 H 131 H Lactic Acid Calcium 8.1 L Phosphorus 6.20 H D Magnesium Iron TIBC AST ALT Alkaline Phosphatase Lactate Dehydrogenase Total Creatine Kinase C-Reactive Protein Total Protein Albumin Prealbumin CA 19-9 Antigen Folate PTH Intact Urine WBC (Auto) Urine Creatinine Urine Chloride Urine Total Protein Fluid Glucose Fluid Total Protein Vancomycin Trough Miscellaneous Test Crossmatch 06/16/18 06/16/18 06/16/18 00:57 05:10 06:07 WBC RBC Hgb Hct MCV MCHC RDW Plt Count Lymph % (Auto) [place] % (Auto) Lymph # [place]ke[place] # Seg Neutrophils % Seg Neuts % (Manual) Lymphocytes % (Manual) Seg Neutrophils # Seg Neutrophils # Man Lymphocytes # (Manual) PT INR APTT POC ABG pH POC ABG pCO2 POC ABG pO2 Sodium 132 L Potassium Chloride Carbon Dioxide 19 L BUN 83 H Creatinine 3.2 H Glucose 113 H POC Glucose 137 H 109 H Lactic Acid Calcium 7.8 L Phosphorus 6.10 H Magnesium Iron TIBC AST ALT Alkaline Phosphatase Lactate Dehydrogenase Total Creatine Kinase C-Reactive Protein Total Protein Albumin Prealbumin CA 19-9 Antigen Folate PTH Intact Urine WBC (Auto) Urine Creatinine Urine Chloride Urine Total Protein Fluid Glucose Fluid Total Protein Vancomycin Trough Miscellaneous Test Crossmatch 10/12/2906/16/18 06/17/18 11:51 15:46 00:02 WBC RBC Hgb Hct MCV MCHC RDW Plt Count Lymph % (Auto) [place]ke[place] % (Auto) Lymph # [place]ke[place] # Seg Neutrophils % Seg Neuts % (Manual) Lymphocytes % (Manual) Seg Neutrophils # Seg Neutrophils # Man Lymphocytes # (Manual) PT INR APTT POC ABG pH POC ABG pCO2 POC ABG pO2 Sodium Potassium Chloride Carbon Dioxide BUN Creatinine Glucose POC Glucose 126 H 127 H 107 H Lactic Acid Calcium Phosphorus Magnesium Iron TIBC AST ALT Alkaline Phosphatase Lactate Dehydrogenase Total Creatine Kinase C-Reactive Protein Total Protein Albumin Prealbumin CA 19-9 Antigen Folate PTH Intact Urine WBC (Auto) Urine Creatinine Urine Chloride Urine Total Protein Fluid Glucose Fluid Total Protein Vancomycin Trough Miscellaneous Test Crossmatch 06/17/18 06/17/18 06/17/18 05:52 11:46 16:58 WBC RBC Hgb Hct MCV MCHC RDW Plt Count Lymph % (Auto) [place]ke[place] % (Auto) Lymph # [place]ke[place] # Seg Neutrophils % Seg Neuts % (Manual) Lymphocytes % (Manual) Seg Neutrophils # Seg Neutrophils # Man Lymphocytes # (Manual) PT INR APTT POC ABG pH POC ABG pCO2 POC ABG pO2 Sodium 133 L Potassium Chloride Carbon Dioxide 17 L BUN 87 H Creatinine 3.2 H Glucose POC Glucose 129 H 140 H Lactic Acid Calcium 8.1 L Phosphorus 6.50 H Magnesium Iron TIBC AST ALT Alkaline Phosphatase Lactate Dehydrogenase Total Creatine Kinase C-Reactive Protein Total Protein Albumin Prealbumin 0.130 L CA 19-9 Antigen Folate PTH Intact Urine WBC (Auto) Urine Creatinine Urine Chloride Urine Total Protein Fluid Glucose Fluid Total Protein Vancomycin Trough Miscellaneous Test Crossmatch 06/18/18 06/18/18 06/18/18 04:04 04:04 14:15 WBC RBC 3.00 L Hgb 8.9 L Hct 26.5 L MCV MCHC RDW 17.8 H Plt Count 494 H Lymph % (Auto) 7.9 L Mckean % (Auto) 9.3 H Lymph # 0.8 L Mckean # 1.0 H Seg Neutrophils % 81.2 H Seg Neuts % (Manual) Lymphocytes % (Manual) Seg Neutrophils # 8.6 H Seg Neutrophils # Man Lymphocytes # (Manual) PT INR APTT POC ABG pH POC ABG pCO2 POC ABG pO2 Sodium 128 L Potassium Chloride Carbon Dioxide 18 L BUN 88 H Creatinine 3.1 H Glucose 129 H POC Glucose 143 H Lactic Acid Calcium 7.8 L Phosphorus 6.20 H Magnesium Iron TIBC AST ALT Alkaline Phosphatase Lactate Dehydrogenase Total Creatine Kinase C-Reactive Protein Total Protein Albumin Prealbumin CA 19-9 Antigen Folate PTH Intact Urine WBC (Auto) Urine Creatinine Urine Chloride Urine Total Protein Fluid Glucose Fluid Total Protein Vancomycin Trough Miscellaneous Test Crossmatch 06/18/18 06/19/18 06/19/18 17:54 01:45 06:20 WBC RBC Hgb Hct MCV MCHC RDW Plt Count Lymph % (Auto) [place] % (Auto) Lymph # [place] # Seg Neutrophils % Seg Neuts % (Manual) Lymphocytes % (Manual) Seg Neutrophils # Seg Neutrophils # Man Lymphocytes # (Manual) PT INR APTT POC ABG pH POC ABG pCO2 POC ABG pO2 Sodium Potassium Chloride 93.9 L Carbon Dioxide BUN 78 H Creatinine 2.8 H Glucose POC Glucose 138 H 141 H Lactic Acid Calcium 7.1 L Phosphorus 6.40 H Magnesium Iron TIBC AST ALT Alkaline Phosphatase Lactate Dehydrogenase Total Creatine Kinase C-Reactive Protein Total Protein Albumin Prealbumin CA 19-9 Antigen Folate PTH Intact Urine WBC (Auto) Urine Creatinine Urine Chloride Urine Total Protein Fluid Glucose Fluid Total Protein Vancomycin Trough Miscellaneous Test Crossmatch 06/19/18 06/19/18 06/19/18 06:49 07:59 16:32 WBC RBC Hgb Hct MCV MCHC RDW Plt Count Lymph % (Auto) [place] % (Auto) Lymph # [place] # Seg Neutrophils % Seg Neuts % (Manual) Lymphocytes % (Manual) Seg Neutrophils # Seg Neutrophils # Man Lymphocytes # (Manual) PT INR APTT POC ABG pH POC ABG pCO2 POC ABG pO2 Sodium Potassium Chloride Carbon Dioxide BUN 80 H Creatinine 2.9 H Glucose 123 H POC Glucose 130 H 134 H Lactic Acid Calcium 7.7 L Phosphorus Magnesium Iron TIBC AST ALT Alkaline Phosphatase Lactate Dehydrogenase Total Creatine Kinase C-Reactive Protein Total Protein Albumin Prealbumin CA 19-9 Antigen Folate PTH Intact Urine WBC (Auto) Urine Creatinine Urine Chloride Urine Total Protein Fluid Glucose Fluid Total Protein Vancomycin Trough Miscellaneous Test Crossmatch 06/20/18 06/20/18 06/20/18 00:11 05:55 05:55 WBC RBC 2.73 L Hgb 8.0 L Hct 24.2 L MCV MCHC RDW 17.4 H Plt Count 512 H Lymph % (Auto) 12.3 L [place]ke[place] % (Auto) 11.3 H Lymph # 1.1 L Mckean # 1.0 H Seg Neutrophils % 74.8 H Seg Neuts % (Manual) Lymphocytes % (Manual) Seg Neutrophils # Seg Neutrophils # Man Lymphocytes # (Manual) PT INR APTT POC ABG pH POC ABG pCO2 POC ABG pO2 Sodium Potassium Chloride Carbon Dioxide 32 H BUN 70 H Creatinine 2.5 H Glucose 105 H POC Glucose 131 H Lactic Acid Calcium 8.0 L Phosphorus Magnesium Iron TIBC AST ALT Alkaline Phosphatase Lactate Dehydrogenase Total Creatine Kinase C-Reactive Protein Total Protein Albumin Prealbumin CA 19-9 Antigen Folate PTH Intact Urine WBC (Auto) Urine Creatinine Urine Chloride Urine Total Protein Fluid Glucose Fluid Total Protein Vancomycin Trough Miscellaneous Test Crossmatch 06/20/18 06/20/18 06/20/18 05:55 12:10 16:01 WBC RBC Hgb Hct MCV MCHC RDW Plt Count Lymph % (Auto) [place] % (Auto) Lymph # [place] # Seg Neutrophils % Seg Neuts % (Manual) Lymphocytes % (Manual) Seg Neutrophils # Seg Neutrophils # Man Lymphocytes # (Manual) PT INR APTT POC ABG pH POC ABG pCO2 POC ABG pO2 Sodium Potassium Chloride Carbon Dioxide BUN Creatinine Glucose POC Glucose 112 H 127 H 145 H Lactic Acid Calcium Phosphorus Magnesium Iron TIBC AST ALT Alkaline Phosphatase Lactate Dehydrogenase Total Creatine Kinase C-Reactive Protein Total Protein Albumin Prealbumin CA 19-9 Antigen Folate PTH Intact Urine WBC (Auto) Urine Creatinine Urine Chloride Urine Total Protein Fluid Glucose Fluid Total Protein Vancomycin Trough Miscellaneous Test Crossmatch 06/20/18 06/21/18 06/21/18 23:54 05:50 05:50 WBC RBC 2.57 L Hgb 7.7 L Hct 26.6 L MCV 104 H MCHC 29 L RDW 19.1 H Plt Count 521 H Lymph % (Auto) 10.0 L [place] % (Auto) 7.4 H Lymph # 1.0 L Mckean # Seg Neutrophils % 81.3 H Seg Neuts % (Manual) Lymphocytes % (Manual) Seg Neutrophils # 7.9 H Seg Neutrophils # Man Lymphocytes # (Manual) PT INR APTT POC ABG pH POC ABG pCO2 POC ABG pO2 Sodium Potassium 5.8 H D Chloride 90.3 L Carbon Dioxide 37 H BUN 57 H Creatinine 1.9 H Glucose POC Glucose 154 H Lactic Acid Calcium 7.3 L Phosphorus Magnesium Iron TIBC AST 50 H ALT Alkaline Phosphatase 190 H Lactate Dehydrogenase Total Creatine Kinase C-Reactive Protein Total Protein Albumin 1.8 L Prealbumin CA 19-9 Antigen Folate PTH Intact Urine WBC (Auto) Urine Creatinine Urine Chloride Urine Total Protein Fluid Glucose Fluid Total Protein Vancomycin Trough Miscellaneous Test Crossmatch 06/21/18 06/21/18 06/21/18 06:57 13:37 17:00 WBC RBC Hgb Hct MCV MCHC RDW Plt Count Lymph % (Auto) [place] % (Auto) Lymph # [place] # Seg Neutrophils % Seg Neuts % (Manual) Lymphocytes % (Manual) Seg Neutrophils # Seg Neutrophils # Man Lymphocytes # (Manual) PT INR APTT POC ABG pH POC ABG pCO2 POC ABG pO2 Sodium Potassium Chloride Carbon Dioxide BUN Creatinine Glucose 111 H POC Glucose 141 H 148 H Lactic Acid Calcium Phosphorus Magnesium Iron TIBC AST ALT Alkaline Phosphatase Lactate Dehydrogenase Total Creatine Kinase C-Reactive Protein Total Protein Albumin Prealbumin CA 19-9 Antigen Folate PTH Intact Urine WBC (Auto) Urine Creatinine Urine Chloride Urine Total Protein Fluid Glucose Fluid Total Protein Vancomycin Trough Miscellaneous Test Crossmatch 06/21/18 06/21/18 06/22/18 17:27 22:01 06:02 WBC RBC Hgb Hct MCV MCHC RDW Plt Count Lymph % (Auto) [place] % (Auto) Lymph # [place] # Seg Neutrophils % Seg Neuts % (Manual) Lymphocytes % (Manual) Seg Neutrophils # Seg Neutrophils # Man Lymphocytes # (Manual) PT INR APTT POC ABG pH POC ABG pCO2 POC ABG pO2 Sodium Potassium 3.2 L Chloride Carbon Dioxide 39 H BUN 53 H Creatinine 1.9 H Glucose 1348 H* POC Glucose 130 H 122 H Lactic Acid Calcium 7.5 L Phosphorus Magnesium Iron TIBC AST ALT Alkaline Phosphatase Lactate Dehydrogenase Total Creatine Kinase C-Reactive Protein Total Protein Albumin Prealbumin CA 19-9 Antigen Folate PTH Intact Urine WBC (Auto) Urine Creatinine Urine Chloride Urine Total Protein Fluid Glucose Fluid Total Protein Vancomycin Trough Miscellaneous Test Crossmatch 06/22/18 06/22/18 06/22/18 06:16 07:26 07:48 WBC RBC Hgb Hct MCV MCHC RDW Plt Count Lymph % (Auto) [place] % (Auto) Lymph # [place] # Seg Neutrophils % Seg Neuts % (Manual) Lymphocytes % (Manual) Seg Neutrophils # Seg Neutrophils # Man Lymphocytes # (Manual) PT INR APTT POC ABG pH POC ABG pCO2 POC ABG pO2 Sodium Potassium Chloride Carbon Dioxide 37 H BUN 57 H Creatinine 1.9 H Glucose 147 H POC Glucose 148 H 153 H Lactic Acid Calcium 8.3 L Phosphorus Magnesium Iron TIBC AST ALT Alkaline Phosphatase Lactate Dehydrogenase Total Creatine Kinase C-Reactive Protein Total Protein Albumin Prealbumin CA 19-9 Antigen Folate PTH Intact Urine WBC (Auto) Urine Creatinine Urine Chloride Urine Total Protein Fluid Glucose Fluid Total Protein Vancomycin Trough Miscellaneous Test Crossmatch 06/22/18 06/22/18 06/22/18 11:26 16:26 23:57 WBC RBC Hgb Hct MCV MCHC RDW Plt Count Lymph % (Auto) [place] % (Auto) Lymph # [place] # Seg Neutrophils % Seg Neuts % (Manual) Lymphocytes % (Manual) Seg Neutrophils # Seg Neutrophils # Man Lymphocytes # (Manual) PT INR APTT POC ABG pH POC ABG pCO2 POC ABG pO2 Sodium Potassium Chloride Carbon Dioxide BUN Creatinine Glucose POC Glucose 121 H 122 H 180 H Lactic Acid Calcium Phosphorus Magnesium Iron TIBC AST ALT Alkaline Phosphatase Lactate Dehydrogenase Total Creatine Kinase C-Reactive Protein Total Protein Albumin Prealbumin CA 19-9 Antigen Folate PTH Intact Urine WBC (Auto) Urine Creatinine Urine Chloride Urine Total Protein Fluid Glucose Fluid Total Protein Vancomycin Trough Miscellaneous Test Crossmatch 06/22/18 06/23/18 06/23/18 23:57 01:40 05:58 WBC RBC Hgb Hct MCV MCHC RDW Plt Count Lymph % (Auto) [place] % (Auto) Lymph # [place] # Seg Neutrophils % Seg Neuts % (Manual) Lymphocytes % (Manual) Seg Neutrophils # Seg Neutrophils # Man Lymphocytes # (Manual) PT INR APTT POC ABG pH 7.195 L 7.235 L POC ABG pCO2 105.2 H 95.7 H POC ABG pO2 Sodium Potassium Chloride Carbon Dioxide BUN Creatinine Glucose POC Glucose 116 H Lactic Acid Calcium Phosphorus Magnesium Iron TIBC AST ALT Alkaline Phosphatase Lactate Dehydrogenase Total Creatine Kinase C-Reactive Protein Total Protein Albumin Prealbumin CA 19-9 Antigen Folate PTH Intact Urine WBC (Auto) Urine Creatinine Urine Chloride Urine Total Protein Fluid Glucose Fluid Total Protein Vancomycin Trough Miscellaneous Test Crossmatch 06/23/18 06/23/18 06/23/18 07:20 08:31 08:31 WBC 16.0 H RBC 2.35 L Hgb 6.7 L Hct 22.3 L MCV 95 H MCHC 30 L RDW 18.5 H Plt Count 512 H Lymph % (Auto) [place] % (Auto) Lymph # [place] # Seg Neutrophils % Seg Neuts % (Manual) Lymphocytes % (Manual) Seg Neutrophils # Seg Neutrophils # Man Lymphocytes # (Manual) PT INR APTT POC ABG pH POC ABG pCO2 POC ABG pO2 Sodium 148 H Potassium Chloride Carbon Dioxide BUN 59 H Creatinine 2.2 H Glucose 106 H POC Glucose 123 H Lactic Acid Calcium 8.2 L Phosphorus 6.60 H Magnesium Iron TIBC AST 46 H ALT Alkaline Phosphatase 188 H Lactate Dehydrogenase Total Creatine Kinase C-Reactive Protein Total Protein Albumin 1.6 L Prealbumin CA 19-9 Antigen Folate PTH Intact Urine WBC (Auto) Urine Creatinine Urine Chloride Urine Total Protein Fluid Glucose Fluid Total Protein Vancomycin Trough Miscellaneous Test Crossmatch 06/23/18 06/23/18 06/23/18 08:34 08:34 Unknown WBC RBC Hgb Hct MCV MCHC RDW Plt Count 485 H Lymph % (Auto) [place] % (Auto) Lymph # [place] # Seg Neutrophils % Seg Neuts % (Manual) Lymphocytes % (Manual) Seg Neutrophils # Seg Neutrophils # Man Lymphocytes # (Manual) PT 15.2 H INR 1.15 H APTT 41.9 H POC ABG pH POC ABG pCO2 POC ABG pO2 Sodium 148 H Potassium Chloride Carbon Dioxide 36 H BUN 57 H Creatinine 1.9 H Glucose POC Glucose Lactic Acid Calcium 8.3 L Phosphorus Magnesium Iron TIBC AST ALT Alkaline Phosphatase Lactate Dehydrogenase Total Creatine Kinase C-Reactive Protein Total Protein Albumin Prealbumin CA 19-9 Antigen Folate PTH Intact Urine WBC (Auto) Urine Creatinine Urine Chloride Urine Total Protein Fluid Glucose Fluid Total Protein Vancomycin Trough Miscellaneous Test Crossmatch Chest x-ray: image reviewed Allied health notes reviewed: RT
[2018-06-23] MEDS: Vasostrict 20 UNIT in NACL 0.9% 100 ML IV SCH (10:57)
[2018-06-23] MEDS: PEPCID IV SCH (11:00)
[2018-06-23] MEDS: NORMODYNE PO SCH (11:07)
[2018-06-23] MEDS: ZOSYN/NS 2.25 GM/50ML 2.25 GM/50 ML BAG IV SCH ×2 (11:07→21:45)
[2018-06-23] MEDS: HEPARIN/ 0.45% NACL-25,000 UNIT/500 ML 25,000 UNIT/500 ML BAG IV SCH (11:16)
[2018-06-23] MEDS: FOLVITE PO SCH (11:24)
[2018-06-23] MEDS ORDERED: NACL 0.9% 500 ML 500 ML ONE (12:56)
[2018-06-23] MEDS: FERROUS SULFATE PO SCH (13:04)
[2018-06-23 17:18] LABS: Hematocrit 25.6 % (35.5-45.6); Hemoglobin 8.4 gm/dl (11.8-15.2); Mean Corpuscular HGB Conc 33 % (32-34); Mean Corpuscular Hemoglobin 30 pg (28-32); Mean Corpuscular Volume 90 fl (84-94); Platelet Count 515 K/mm3 (140-440); Red Blood Count 2.85 M/mm3 (3.65-5.03); Red Cell Distribution Width 17.6 % (13.2-15.2)
[2018-06-23] MEDS: D50W (25GM) Syringe IV PRN (18:42)
[2018-06-23] MEDS ORDERED: TPN ADULT 2,016 ML IV SCH (20:00)
[2018-06-24] MEDS: HumuLIN R SUB-Q SCH ×3 (00:05→12:29)
[2018-06-24] MEDS: APRESOLINE PO SCH (00:06)
[2018-06-24] MEDS: NORMODYNE PO SCH (00:07)
[2018-06-24] MEDS: FERROUS SULFATE PO SCH ×3 (00:08→21:25)
[2018-06-24 02:02] LABS: Amphetamine Screen,Urine PRESUMPTIVE NEGATIVE; Benzodiazepines Screen,Urine PRESUMPTIVE NEGATIVE; Cannabinoid Screen,Urine PRESUMPTIVE NEGATIVE; Cocaine Screen,Urine PRESUMPTIVE NEGATIVE; Creatinine,Urine 99.7 mg/dL (0.1-20.0); Methadone Screen,Urine PRESUMPTIVE NEGATIVE; Opiate Screen,Urine PRESUMPTIVE NEGATIVE; Potassium, Urine 32.11 mmol/L
--- NOTE | 2018-06-24 02:30 | XRay Report ---
FINAL REPORT PROCEDURE: XR ABDOMEN 1V AP TECHNIQUE: Abdominal radiograph, single supine AP view. HISTORY: Dobhoff placement COMPARISON: No prior studies are available for comparison. FINDINGS: Bowel gas pattern:Nonobstructive. Masses or calcifications:None. Bony structures:No significant abnormality. Other:None. A feeding tube ends in the lower stomach IMPRESSION: No acute process is noted. The feeding tube ends in the lower stomach.
[2018-06-24 02:58] LABS: Amorphous Crystals,Urine 2+; Bacteria,Urine 1+ /HPF (Negative); Bilirubin,Urine NEG (Negative); Blood,Urine MOD (Negative); Color,Urine Yellow (Yellow); Urobilinogen,Urine < 2.0 mg/dL (<2.0)
[2018-06-24 04:58] LABS: Hemoglobin 8.1 gm/dl (11.8-15.2); Mean Corpuscular HGB Conc 33 % (32-34); Mean Corpuscular Hemoglobin 29 pg (28-32); Mean Corpuscular Volume 90 fl (84-94); Platelet Count 487 K/mm3 (140-440); Red Blood Count 2.79 M/mm3 (3.65-5.03); Red Cell Distribution Width 17.5 % (13.2-15.2)
[2018-06-24 05:30] LABS: Calcium 8.2 mg/dL (8.4-10.2)
[2018-06-24] MEDS: APRESOLINE IV PRN (07:34)
[2018-06-24 08:18] LABS: Band Neutrophils # (Manual) 5.1 K/mm3; Basophils % (Manual) 0 % (0.0-1.8); Eosinophils % (Manual) 0 % (0.0-4.3); Total Cells Counted 100
[2018-06-24 08:20] LABS: Stomatocytes 1+
[2018-06-24 08:22] LABS: Anisocytosis 1+; Hypochromasia 1+
[2018-06-24 08:24] LABS: Platelet Estimate Consistent w Auto
--- NOTE | 2018-06-24 08:56 | Progress Note ---
Assessment and Plan Assessment and plan: Assessment and plan: s/p cardiorespiratory arrest. Patient developed shortness of breath overnight of 06/22/18. ABG was done showing pH 7.195. He was put on BIPAP, repeat ABG was slightly improved pH7.32. However patient became worse developed bradycardia with PEA arrest, cardiorespiratory arrest. Ally brower called at 7:17 am on 06/23/18. Code run as per protocol. He had CPR, multiple rounds of epinephrine, bicarb, and was intubated during code. It was a prolonged resuscitation effort and eventually regained pulse and code terminated 07:45 am. Patient was then transferred to ICU. After several minutes he had another cardiorespiratory arrest and ally brower called again at 08:09 am. CPR was done, multiple doses of Epinephrine and bicarb given and he regained pulse and code terminated at 08:19. He is unresponsive. Intubated on ventilator. I discussed case with Cardiac Care Nurse, Dr. Lopez and it was decided to initiate heparin drip. Patient had DVT right lower ext but was not on anticoagulation because of nephrostomy tubes, major abdominal surgery. Vasc surgery stated ok to start anticoagulation. 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 Differentiated carcinoma with squamous differentiation on pathology but unsure of exact primary Continue pain control PRN Bilateral pneumonia (possibly aspiration) Monitor respiratory status Continue Nebs PRN Bilateral moderate pleural effusion Cardiogenic shock Patient was hypotensive post cardio-respiratory arrest. He was started on Levophed. Bp improved few hors later and Levophed discontinued Sepsis was on Antibiotics. Acute kidney injury (obstructive uropathy vs contrast nephropathy) was on hemodialysis temporarily. Stable renal function. Dialysis catheter removed as per nephrology Continue to monitor BMP and kidney fuction Had bilateral nephrostomy tubes placed 05/14/[address] Freeman. Acute deep venous thrombosis Started heparin drip Bowel obstruction s/p surgery Etiology secondary to extrinsic compression from mass. Continue TPN Moderate to severe protein calorie malnutrition Anemia due to Chronic illness s/p PRBC transfusion. Hgb 6.7 yesterday, transfused 2 Units PRBC Plan was for him to go to LTAC prior to cardioresp arrest. Poor prognosis with prolonged cardiorespiratory arrest. Anoxic encephalopathy. Consulted Neuologist, Dr. Ye to evaluate. patient unresponsive, post prolonged cardiorespiratory arrest Discussed with sister, Vibha Dinh in detail. History Interval history: Patient had cardiorespiratory arrest x2, resuscitated both times, now intubated , on Levophed still unresponsive Hospitalist Physical - Physical exam Narrative exam: GEN:Now Intubated, on mechanical ventilator, HEENT: Normocephalic, atraumatic, Neck: supple, No JVD Lungs: Decreased breath sounds both bases, no crackles Heart:S1 and S2 regular ,no murmurs, rubs or gallop Abd:soft, ostomy, bilat nephrostomy tubes, bowel sounds present Ext: No edema, clubbing or cyanosis Neuro: Intubated, Unresponsive, on ventilator - Constitutional Vitals: Temp Pulse Resp BP Pulse Ox 98.0 F 88 24 168/97 100 06/24/18 07:50 06/24/18 08:42 06/24/18 08:00 06/24/18 08:42 06/24/18 08:42 Results - Labs CBC & Chem 7: 06/26/18 04:00 06/26/18 04:00 Labs: Laboratory Last Values WBC 26.9 K/mm3 (4.5-11.0) H 06/24/18 04:30 RBC 2.79 M/mm3 (3.65-5.03) L 06/24/18 04:30 Hgb 8.1 gm/dl (11.8-15.2) L 06/24/18 04:30 Hct 25.0 % (35.5-45.6) L 06/24/18 04:30 MCV 90 fl (84-94) 06/24/18 04:30 MCH 29 pg (28-32) 06/24/18 04:30 MCHC 33 % (32-34) 06/24/18 04:30 RDW 17.5 % (13.2-15.2) H 06/24/18 04:30 Plt Count 487 K/mm3 (140-440) H 06/24/18 04:30 Lymph % (Auto) 10.0 % (13.4-35.0) L 06/21/18 05:50 Citrus % (Auto) 7.4 % (0.0-7.3) H 06/21/18 05:50 Eos % (Auto) 0.4 % (0.0-4.3) 06/21/18 05:50 Baso % (Auto) 0.9 % (0.0-1.8) 06/21/18 05:50 Lymph # 1.0 K/mm3 (1.2-5.4) L 06/21/18 05:50 Citrus # 0.7 K/mm3 (0.0-0.8) 06/21/18 05:50 Eos # 0.0 K/mm3 (0.0-0.4) 06/21/18 05:50 Baso # 0.1 K/mm3 (0.0-0.1) 06/21/18 05:50 Add Manual Diff Complete 06/24/18 04:30 Total Counted 100 06/24/18 04:30 Seg Neutrophils % 81.3 % (40.0-70.0) H 06/21/18 05:50 Seg Neuts % (Manual) 63.0 % (40.0-70.0) 06/24/18 04:30 Band Neutrophils % 19.0 % 06/24/18 04:30 Lymphocytes % (Manual) 6.0 % (13.4-35.0) L 06/24/18 04:30 Reactive Lymphs % (Man) 0 % 06/24/18 04:30 Monocytes % (Manual) 8.0 % (0.0-7.3) H 06/24/18 04:30 Eosinophils % (Manual) 0 % (0.0-4.3) 06/24/18 04:30 Basophils % (Manual) 0 % (0.0-1.8) 06/24/18 04:30 Metamyelocytes % 4.0 % 06/24/18 04:30 Myelocytes % 0 % 06/24/18 04:30 Promyelocytes % 0 % 06/24/18 04:30 Blast Cells % 0 % 06/24/18 04:30 Nucleated RBC % Not Reportable 06/24/18 04:30 Seg Neutrophils # 7.9 K/mm3 (1.8-7.7) H 06/21/18 05:50 Seg Neutrophils # Man 16.9 K/mm3 (1.8-7.7) H 06/24/18 04:30 Band Neutrophils # 5.1 K/mm3 06/24/18 04:30 Lymphocytes # (Manual) 1.6 K/mm3 (1.2-5.4) 06/24/18 04:30 Abs React Lymphs (Man) 0.0 K/mm3 06/24/18 04:30 Monocytes # (Manual) 2.2 K/mm3 (0.0-0.8) H 06/24/18 04:30 Eosinophils # (Manual) 0.0 K/mm3 (0.0-0.4) 06/24/18 04:30 Basophils # (Manual) 0.0 K/mm3 (0.0-0.1) 06/24/18 04:30 Metamyelocytes # 1.1 K/mm3 06/24/18 04:30 Myelocytes # 0.0 K/mm3 06/24/18 04:30 Promyelocytes # 0.0 K/mm3 06/24/18 04:30 Blast Cells # 0.0 K/mm3 06/24/18 04:30 WBC Morphology Not Reportable 06/24/18 04:30 Hypersegmented Neuts Not Reportable 06/24/18 04:30 Hyposegmented Neuts Not Reportable 06/24/18 04:30 Hypogranular Neuts Not Reportable 06/24/18 04:30 Smudge Cells Not Reportable 06/24/18 04:30 Toxic Granulation Not Reportable 06/24/18 04:30 Toxic Vacuolation Not Reportable 06/24/18 04:30 Dohle Bodies Not Reportable 06/24/18 04:30 Pelger-Huet Anomaly Not Reportable 06/24/18 04:30 Mahesh Rods Not Reportable 06/24/18 04:30 Platelet Estimate Consistent w auto 06/24/18 04:30 Clumped Platelets Not Reportable 06/24/18 04:30 Plt Clumps, EDTA Not Reportable 06/24/18 04:30 Large Platelets Not Reportable 06/24/18 04:30 Giant Platelets Not Reportable 06/24/18 04:30 Platelet Satelliting Not Reportable 06/24/18 04:30 Plt Morphology Comment Not Reportable 06/24/18 04:30 RBC Morphology Not Reportable 06/24/18 04:30 Dimorphic RBCs Not Reportable 06/24/18 04:30 Polychromasia Not Reportable 06/24/18 04:30 Hypochromasia 1+ 06/24/18 04:30 Poikilocytosis Not Reportable 06/24/18 04:30 Anisocytosis 1+ 06/24/18 04:30 Microcytosis Not Reportable 06/24/18 04:30 Macrocytosis Not Reportable 06/24/18 04:30 Spherocytes Not Reportable 06/24/18 04:30 Pappenheimer Bodies Not Reportable 06/24/18 04:30 Sickle Cells Not Reportable 06/24/18 04:30 Target Cells Not Reportable 06/24/18 04:30 Tear Drop Cells Not Reportable 06/24/18 04:30 Ovalocytes Not Reportable 06/24/18 04:30 Stomatocytes 1+ 06/24/18 04:30 Helmet Cells Not Reportable 06/24/18 04:30 Hernandez-Ebony Bodies Not Reportable 06/24/18 04:30 [place] Rings Not Reportable 06/24/18 04:30 [place] Cells Not Reportable 06/24/18 04:30 Bite Cells Not Reportable 06/24/18 04:30 Crenated Cell Not Reportable 06/24/18 04:30 Elliptocytes Few 06/24/18 04:30 Acanthocytes (Spur) Not Reportable 06/24/18 04:30 Rouleaux Not Reportable 06/24/18 04:30 Hemoglobin C Crystals Not Reportable 06/24/18 04:30 Schistocytes Not Reportable 06/24/18 04:30 Malaria parasites Not Reportable 06/24/18 04:30 Mk Bodies Not Reportable 06/24/18 04:30 Hem Pathologist Commnt No 06/24/18 04:30 PT 15.2 Sec. (12.2-14.9) H 06/23/18 08:34 INR 1.15 (0.87-1.13) H 06/23/18 08:34 APTT 41.9 Sec. (24.2-36.6) H 06/23/18 08:34 Heparin Anti-Xa Level 0.21 U.I./ml (0.3-0.7) L 06/24/18 08:00 POC ABG pH 7.517 (7.35-7.45) H 06/24/18 04:33 POC ABG pCO2 50.9 (35-45) H 06/24/18 04:33 POC ABG pO2 170 (80-105) H 06/24/18 04:33 POC ABG HCO3 41.2 06/24/18 04:33 POC ABG Total CO2 43 06/24/18 04:33 POC ABG O2 Sat 100 06/24/18 04:33 POC ABG Base Excess 18 06/24/18 04:33 FiO2 75 % 06/24/18 04:33 Sodium 151 mmol/L (137-145) H 06/24/18 04:30 Potassium 3.8 mmol/L (3.6-5.0) 06/24/18 04:30 Chloride 103.1 mmol/L (98-107) 06/24/18 04:30 Carbon Dioxide 36 mmol/L (22-30) H D 06/24/18 04:30 Anion Gap 16 mmol/L 06/24/18 04:30 BUN 74 mg/dL (9-20) H 06/24/18 04:30 Creatinine 2.9 mg/dL (0.8-1.5) H 06/24/18 04:30 Estimated GFR 28 ml/min 06/24/18 04:30 BUN/Creatinine Ratio 26 % 06/24/18 04:30 Glucose 126 mg/dL (75-100) H 06/24/18 04:30 POC Glucose 140 (70-105) H 06/24/18 06:41 Hemoglobin A1c 5.7 % (4-6) 05/14/18 05:05 Lactic Acid 3.80 mmol/L (0.7-2.0) H* 05/26/18 11:00 Calcium 8.2 mg/dL (8.4-10.2) L 06/24/18 04:30 Phosphorus 6.60 mg/dL (2.5-4.5) H 06/23/18 08:31 Magnesium 2.30 mg/dL (1.7-2.3) 06/23/18 08:31 Iron 24 ug/dL (49-181) L 05/16/18 07:02 TIBC 160 mcg/dL (250-450) L 05/16/18 07:02 Ferritin 325.8 ng/mL (13.0-400.0) 05/16/18 07:02 Total Bilirubin 0.20 mg/dL (0.1-1.2) 06/23/18 08:31 AST 46 units/L (5-40) H 06/23/18 08:31 ALT 32 units/L (7-56) 06/23/18 08:31 Alkaline Phosphatase 188 units/L (35-129) H 06/23/18 08:31 Lactate Dehydrogenase 297 units/L (91-180) H 06/08/18 21:36 Total Creatine Kinase 34 units/L (55-170) L 06/12/18 04:12 CK-MB (CK-2) 2.3 ng/mL (0.0-4.0) 05/25/18 22:46 CK-MB (CK-2) Rel Index 1.4 (0-4) 05/25/18 22:46 C-Reactive Protein 3.60 mg/dL (0.00-1.30) H 06/10/18 17:15 Total Protein 7.0 g/dL (6.3-8.2) 06/23/18 08:31 Albumin 1.6 g/dL (3.9-5) L 06/23/18 08:31 Albumin/Globulin Ratio 0.3 % 06/23/18 08:31 Prealbumin 0.130 g/L (0.200-0.400) L 06/17/18 05:52 Triglycerides 56 mg/dL (2-149) 06/19/18 06:20 CA 19-9 Antigen 57 U/mL (<34) H 06/08/18 21:43 Prostate Specific Ag 0.96 ng/mL (0.00-4.00) 05/14/18 13:29 Free PSA See scanned result 06/08/18 21:44 % Free PSA Calc See scanned result 06/08/18 21:44 Total PSA See scanned result 06/08/18 21:44 Vitamin B12 359.2 pg/mL (211-911) 05/16/18 07:02 Folate 5.39 ng/mL (7.3-26.0) L 05/16/18 07:02 TSH 3.180 mlU/mL (0.270-4.200) 05/14/18 05:05 PTH Intact 65.37 pg/mL (15-65) H 05/14/18 05:05 Urine Color Yellow (Yellow) 06/24/18 00:30 Urine Turbidity Cloudy (Clear) 06/24/18 00:30 Urine pH 5.0 (5.0-7.0) 06/24/18 00:30 Ur Specific Oolitic 1.014 (1.003-1.030) 06/24/18 00:30 Urine Protein 100 mg/dl mg/dL (Negative) 06/24/18 00:30 Urine Glucose (UA) Neg mg/dL (Negative) 06/24/18 00:30 Urine Ketones Neg mg/dL (Negative) 06/24/18 00:30 Urine Blood Mod (Negative) 06/24/18 00:30 Urine Nitrite Neg (Negative) 06/24/18 00:30 Urine Bilirubin Neg (Negative) 06/24/18 00:30 Urine Urobilinogen < 2.0 mg/dL (<2.0) 06/24/18 00:30 Ur Leukocyte Esterase Tr (Negative) 06/24/18 00:30 Urine WBC (Auto) 8.0 /HPF (0.0-6.0) H 06/24/18 00:30 Urine RBC (Auto) 57.0 /HPF (0.0-6.0) 06/24/18 00:30 U Epithel Cells (Auto) 1.0 /HPF (0-13.0) 06/11/18 07:41 Urine Bacteria (Auto) 1+ /HPF (Negative) 06/24/18 00:30 Urine WBC Clumps Few /HPF 05/13/18 19:39 Amorphous Crystals 2+ 06/24/18 00:30 Urine Mucus Few /HPF 06/11/18 07:41 Ur Yeast w Hyphae Few /HPF 06/11/18 07:41 Urine Yeast (Budding) 3+ /HPF 06/24/18 00:30 Urine Creatinine 99.7 mg/dL (0.1-20.0) H 06/23/18 00:30 Urine Sodium Not Reportable 06/23/18 00:30 Urine Potassium 32.11 mmol/L 06/23/18 00:30 Urine Chloride 10.0 mmolL (110-250) L 06/23/18 00:30 Urine Total Protein 272 mg/dL (5-11.8) H 06/23/18 00:30 Fluid Type Ascitic 06/03/18 Unknown Fluid Color Yellow 06/03/18 Unknown Fluid Appearance Cloudy 06/03/18 Unknown Fluid WBC 83703 /mm3 06/03/18 Unknown Fluid RBC 9 /mm3 06/03/18 Unknown Fluid Seg Neutrophils 98.0 % 06/03/18 Unknown Fluid Lymphocytes 2.0 % 06/03/18 Unknown Fluid Reactive Lymphs 0 % 06/03/18 Unknown Fluid Monocytes 0 % 06/03/18 Unknown Fluid Eosinophils 0 % 06/03/18 Unknown Fluid Basophils 0 % 06/03/18 Unknown Fluid Glucose 10 mg/dL (40-70) L 06/03/18 Unknown Fluid Total Protein 3.7 (15.0-45.0) L 06/03/18 Unknown Fluid Albumin 0.8 g/dL 06/03/18 Unknown Fluid LDH > 01733 06/03/18 Unknown Fluid Amylase 126 06/03/18 Unknown Vancomycin Trough 25.1 ug/mL (5.0-20.0) H 05/25/18 22:46 Random Vancomycin 34.3 ug/mL (0-40.0) 05/26/18 11:01 Urine Opiates Screen Presumptive negative 06/23/18 00:30 Urine Methadone Screen Presumptive negative 06/23/18 00:30 Ur Barbiturates Screen Presumptive negative 06/23/18 00:30 Ur Phencyclidine Scrn Presumptive negative 06/23/18 00:30 Ur Amphetamines Screen Presumptive negative 06/23/18 00:30 U Benzodiazepines Scrn Presumptive negative 06/23/18 00:30 Urine Cocaine Screen Presumptive negative 06/23/18 00:30 U Marijuana (THC) Screen Presumptive negative 06/23/18 00:30 Drugs of Abuse Note Disclamer 06/23/18 00:30 ZEUS Screen Negative (Negative) 05/14/18 05:05 Proteinase 3 (PR3) Ab <1.0 AI (<1.0) 05/14/18 05:05 Myeloperoxidase Ab <1.0 AI (<1.0) 05/14/18 05:05 Complement C3 147 mg/dL (82-185) 05/14/18 05:05 Complement C4 45 mg/dL (15-53) 05/14/18 05:05 Hepatitis A IgM Ab Nonreactive (NonReactive) 05/27/18 13:41 Hep Bs Antigen Non-reactive (Negative) 05/27/18 13:41 Hep B Core IgM Ab Non-reactive (NonReactive) 05/27/18 13:41 Hepatitis C Antibody Non-reactive (NonReactive) 05/27/18 13:41 Miscellaneous Test Flexitest 1 H 06/09/18 07:37 Blood Type O POSITIVE 06/23/18 09:40 Antibody Screen Negative 06/23/18 09:40 Crossmatch See Detail 06/23/18 09:40
--- NOTE | 2018-06-24 09:05 | Progress Note ---
Assessment and Plan 1. Acute kidney injury: Initial MARYLOU in the setting of bilateral hydronephrosis secondary to pelvic mass , now s/p bilateral nephrostomy. Recurrent Acute kidney injury likely ATN. Patient was on hemodialysis until 06/02/18. Renal function is declining likely due to Cardiac arrest and hypotension. Patient require HD / Isolated UF due to volume overload. D/w her sister over the phone regarding indications, benefits and risks involved in hemodialysis. She gave consent to proceed with hemodialysis. D/w Vascular for placement of Temp hemodialysis catheter. BP became low. HD / UF when BP is better. 2. Electrolytes: Monitor. 3. Bowel obstruction: S/p colostomy. 4. Bilateral hydronephrosis: Secondary to pelvic mass. S/p bilateral nephrostomy. S/p Cysto and drainage of abscess. 5. Respiratory failure: On vent. 6. S/p PEA. 7. Sepsis: Complicated UTI and pneumonia. On Zosyn. 8. Anemia. 9. 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 Subjective Date of service: 06/24/18 Principal diagnosis: sq cell ca Interval history: Patient was seen and examined at the bedside. Objective - Vital Signs Vital signs: Vital Signs - 12hr 06/23/18 06/23/18 06/23/18 21:10 21:20 21:30 Temperature Pulse Rate 105 H 103 H 103 H Pulse Rate [ From Monitor] Pulse Rate [ Right Dorsalis Pedis] Respiratory 28 H 24 27 H Rate Blood Pressure 139/96 149/95 148/95 O2 Sat by Pulse 100 100 100 Oximetry 06/23/18 06/23/18 06/23/18 21:40 21:50 22:00 Temperature Pulse Rate 101 H 106 H 103 H Pulse Rate [ From Monitor] Pulse Rate [ Right Dorsalis Pedis] Respiratory 24 25 H 23 Rate Blood Pressure 148/95 149/95 148/98 O2 Sat by Pulse 100 99 100 Oximetry 06/23/18 06/23/18 06/23/18 22:10 22:20 22:30 Temperature Pulse Rate 102 H 101 H 102 H Pulse Rate [ From Monitor] Pulse Rate [ Right Dorsalis Pedis] Respiratory 24 24 25 H Rate Blood Pressure 148/98 148/95 146/92 O2 Sat by Pulse 100 100 100 Oximetry 06/23/18 06/23/18 06/23/18 22:40 22:44 22:50 Temperature Pulse Rate 101 H 100 H 101 H Pulse Rate [ From Monitor] Pulse Rate [ Right Dorsalis Pedis] Respiratory 24 24 24 Rate Blood Pressure 146/92 146/92 146/92 O2 Sat by Pulse 100 100 100 Oximetry 06/23/18 06/23/18 06/23/18 22:54 23:00 23:10 Temperature Pulse Rate 101 H 101 H 105 H Pulse Rate [ From Monitor] Pulse Rate [ Right Dorsalis Pedis] Respiratory 24 24 23 Rate Blood Pressure 139/89 136/90 136/90 O2 Sat by Pulse 100 100 100 Oximetry 06/23/18 06/23/18 06/23/18 23:20 23:26 23:30 Temperature Pulse Rate 101 H 104 H 103 H Pulse Rate [ From Monitor] Pulse Rate [ Right Dorsalis Pedis] Respiratory 24 25 H Rate Blood Pressure 136/90 145/97 151/95 O2 Sat by Pulse 100 100 Oximetry 06/23/18 06/23/18 06/24/18 23:40 23:50 00:00 Temperature 99.3 F Pulse Rate 101 H 101 H 101 H Pulse Rate [ 100 H From Monitor] Pulse Rate [ Right Dorsalis Pedis] Respiratory 29 H 24 24 Rate Blood Pressure 151/95 144/93 148/95 O2 Sat by Pulse 100 100 100 Oximetry 06/24/18 06/24/18 06/24/18 00:10 00:20 00:30 Temperature Pulse Rate 100 H 102 H 110 H Pulse Rate [ From Monitor] Pulse Rate [ Right Dorsalis Pedis] Respiratory 26 H 28 H 26 H Rate Blood Pressure 148/95 144/93 154/101 O2 Sat by Pulse 100 100 100 Oximetry 06/24/18 06/24/18 06/24/18 01:00 01:30 02:00 Temperature Pulse Rate 102 H 102 H 114 H Pulse Rate [ From Monitor] Pulse Rate [ Right Dorsalis Pedis] Respiratory 29 H 28 H 33 H Rate Blood Pressure 146/101 150/97 171/115 O2 Sat by Pulse 100 100 100 Oximetry 06/24/18 06/24/18 06/24/18 02:30 03:00 03:30 Temperature Pulse Rate 100 H 99 H 102 H Pulse Rate [ From Monitor] Pulse Rate [ Right Dorsalis Pedis] Respiratory 25 H 25 H 24 Rate Blood Pressure 149/100 149/102 149/102 O2 Sat by Pulse 100 100 100 Oximetry 06/24/18 06/24/18 06/24/18 04:00 04:22 04:30 Temperature 98.6 F Pulse Rate 105 H 97 H 98 H Pulse Rate [ 90 From Monitor] Pulse Rate [ Right Dorsalis Pedis] Respiratory 22 25 H Rate Blood Pressure 149/102 167/110 167/110 O2 Sat by Pulse 100 100 100 Oximetry 06/24/18 06/24/18 06/24/18 05:00 05:30 06:00 Temperature Pulse Rate 88 82 82 Pulse Rate [ From Monitor] Pulse Rate [ Right Dorsalis Pedis] Respiratory 25 H 24 24 Rate Blood Pressure 164/102 173/102 168/106 O2 Sat by Pulse 100 100 100 Oximetry 06/24/18 06/24/18 06/24/18 06:30 07:00 07:18 Temperature 98.0 F Pulse Rate 82 81 Pulse Rate [ From Monitor] Pulse Rate [ Right Dorsalis Pedis] Respiratory 24 24 Rate Blood Pressure 168/106 166/102 O2 Sat by Pulse 100 100 Oximetry 06/24/18 06/24/18 06/24/18 07:30 07:34 07:50 Temperature 98.0 F Pulse Rate 81 79 Pulse Rate [ From Monitor] Pulse Rate [ Right Dorsalis Pedis] Respiratory 24 Rate Blood Pressure 171/105 171/101 O2 Sat by Pulse 100 Oximetry 06/24/18 06/24/18 06/24/18 08:00 08:30 08:42 Temperature Pulse Rate 84 78 88 Pulse Rate [ From Monitor] Pulse Rate [ 84 Right Dorsalis Pedis] Respiratory 31 H 28 H Rate Blood Pressure 151/99 166/91 168/97 O2 Sat by Pulse 100 100 100 Oximetry 06/24/18 09:00 Temperature Pulse Rate 80 Pulse Rate [ From Monitor] Pulse Rate [ Right Dorsalis Pedis] Respiratory 24 Rate Blood Pressure 172/100 O2 Sat by Pulse 100 Oximetry - General Appearance General appearance: well-developed, appears stated age, intubated, other (on vent) EENT: ATNC Neck: supple Respiratory: Present: Other (coarse breath sounds) Cardiology: regular, S1S2, no murmurs Gastrointestinal: other (bilateral Nephrostomy, ostomy and drain noted, BS heard ) Integumentary: no rash Neurologic: obtunded Musculoskeletal: other (trace pedal edema noted) - Lab 06/24/18 04:30 06/24/18 04:30 Most recent lab results Calcium 8.2 mg/dL (8.4-10.2) L 06/24/18 04:30 Phosphorus 6.60 mg/dL (2.5-4.5) H 06/23/18 08:31 Magnesium 2.30 mg/dL (1.7-2.3) 06/23/18 08:31 Urine Creatinine 99.7 mg/dL (0.1-20.0) H 06/23/18 00:30 Urine Sodium Not Reportable 06/23/18 00:30 Urine Total Protein 272 mg/dL (5-11.8) H 06/23/18 00:30
[2018-06-24] MEDS: FOLVITE PO SCH (09:19)
[2018-06-24] MEDS: ZOSYN/NS 2.25 GM/50ML 2.25 GM/50 ML BAG IV SCH ×2 (09:19→21:12)
[2018-06-24] MEDS: PEPCID IV SCH (09:19)
[2018-06-24] MEDS: HEPARIN/ 0.45% NACL-25,000 UNIT/500 ML 25,000 UNIT/500 ML BAG IV SCH (09:24)
[2018-06-24] MEDS ORDERED: APRESOLINE FEEDTUBE SCH ×2 (10:00→11:22)
[2018-06-24] MEDS ORDERED: CATAPRES-TTS PATCH TD SCH ×2 (10:00→11:21)
--- NOTE | 2018-06-24 10:21 | Progress Note ---
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 Hypertensive urgency, Sinus tachycardia with HR 160s CTA negative for PE Hyperkalemia Hypernatrmia Metabolic acidosis Acute blood loss anemia Moderate to severe protein calorie malnutrition - continue supplemental oxygen to keep sats > 90% - NIPPV prn for work of breathing -discussed fluid management with renal service, avoid over-hydration in view of respiratory status -prn CXR, may need thoracentesis - continue bronchodilators with pulmonary hygiene per RT - HD/UF for toxin and volume clearance - continue anti-infective's per ID recs - continue TPN , enteral feeding per surgery service - Malignancy per heme-oncologist - continue mobility protocol for pressure ulcer prevention -PT/OT - s/p surgery 05/26 (had ex-lap; matted abdominal organs, pus - Enterostomy tube decompression,loop colostomy and large triple lumen sump drainage of pelvis) - s/p bilateral nephrostomy tubes placed 05/14/[address] Freeman.(CTA negative for P.E.) - continue other care per attending / other consultants -discharge planning...probably SNF to complete antibiotics and for low level rehab Full code status Subjective Date of service: 06/24/18 Principal diagnosis: sq cell ca Interval history: Patient is seen today for: Acute Hypoxemic Resp Failure; Sepsis Syndrome; Acute VTE; Prostate Cancer, s/p cardiopulmonary arrest(PEA) Seen and examined. vitals, labs, medications, chart reviewed.; 24hour events reviewed; nursing and respiratory care staff consulted; overnight events reported to me; Objective Vital Signs - 12hr 06/23/18 06/23/18 06/23/18 22:30 22:40 22:44 Temperature Pulse Rate 102 H 101 H 100 H Pulse Rate [ From Monitor] Pulse Rate [ Right Dorsalis Pedis] Respiratory 25 H 24 24 Rate Blood Pressure 146/92 146/92 146/92 O2 Sat by Pulse 100 100 100 Oximetry 06/23/18 06/23/18 06/23/18 22:50 22:54 23:00 Temperature Pulse Rate 101 H 101 H 101 H Pulse Rate [ From Monitor] Pulse Rate [ Right Dorsalis Pedis] Respiratory 24 24 24 Rate Blood Pressure 146/92 139/89 136/90 O2 Sat by Pulse 100 100 100 Oximetry 06/23/18 06/23/18 06/23/18 23:10 23:20 23:26 Temperature Pulse Rate 105 H 101 H 104 H Pulse Rate [ From Monitor] Pulse Rate [ Right Dorsalis Pedis] Respiratory 23 24 Rate Blood Pressure 136/90 136/90 145/97 O2 Sat by Pulse 100 100 Oximetry 06/23/18 06/23/18 06/23/18 23:30 23:40 23:50 Temperature Pulse Rate 103 H 101 H 101 H Pulse Rate [ From Monitor] Pulse Rate [ Right Dorsalis Pedis] Respiratory 25 H 29 H 24 Rate Blood Pressure 151/95 151/95 144/93 O2 Sat by Pulse 100 100 100 Oximetry 06/24/18 06/24/18 06/24/18 00:00 00:10 00:20 Temperature 99.3 F Pulse Rate 101 H 100 H 102 H Pulse Rate [ 100 H From Monitor] Pulse Rate [ Right Dorsalis Pedis] Respiratory 24 26 H 28 H Rate Blood Pressure 148/95 148/95 144/93 O2 Sat by Pulse 100 100 100 Oximetry 06/24/18 06/24/18 06/24/18 00:30 01:00 01:30 Temperature Pulse Rate 110 H 102 H 102 H Pulse Rate [ From Monitor] Pulse Rate [ Right Dorsalis Pedis] Respiratory 26 H 29 H 28 H Rate Blood Pressure 154/101 146/101 150/97 O2 Sat by Pulse 100 100 100 Oximetry 06/24/18 06/24/18 06/24/18 02:00 02:30 03:00 Temperature Pulse Rate 114 H 100 H 99 H Pulse Rate [ From Monitor] Pulse Rate [ Right Dorsalis Pedis] Respiratory 33 H 25 H 25 H Rate Blood Pressure 171/115 149/100 149/102 O2 Sat by Pulse 100 100 100 Oximetry 06/24/18 06/24/18 06/24/18 03:30 04:00 04:22 Temperature 98.6 F Pulse Rate 102 H 105 H 97 H Pulse Rate [ 90 From Monitor] Pulse Rate [ Right Dorsalis Pedis] Respiratory 24 22 Rate Blood Pressure 149/102 149/102 167/110 O2 Sat by Pulse 100 100 100 Oximetry 06/24/18 06/24/18 06/24/18 04:30 05:00 05:30 Temperature Pulse Rate 98 H 88 82 Pulse Rate [ From Monitor] Pulse Rate [ Right Dorsalis Pedis] Respiratory 25 H 25 H 24 Rate Blood Pressure 167/110 164/102 173/102 O2 Sat by Pulse 100 100 100 Oximetry 06/24/18 06/24/18 06/24/18 06:00 06:30 07:00 Temperature Pulse Rate 82 82 81 Pulse Rate [ From Monitor] Pulse Rate [ Right Dorsalis Pedis] Respiratory 24 24 24 Rate Blood Pressure 168/106 168/106 166/102 O2 Sat by Pulse 100 100 100 Oximetry 06/24/18 06/24/18 06/24/18 07:18 07:30 07:34 Temperature 98.0 F Pulse Rate 81 79 Pulse Rate [ From Monitor] Pulse Rate [ Right Dorsalis Pedis] Respiratory 24 Rate Blood Pressure 171/105 171/101 O2 Sat by Pulse 100 Oximetry 06/24/18 06/24/18 06/24/18 07:50 08:00 08:30 Temperature 98.0 F Pulse Rate 84 78 Pulse Rate [ From Monitor] Pulse Rate [ 84 Right Dorsalis Pedis] Respiratory 31 H 28 H Rate Blood Pressure 151/99 166/91 O2 Sat by Pulse 100 100 Oximetry 06/24/18 06/24/18 06/24/18 08:42 09:00 09:26 Temperature Pulse Rate 88 80 Pulse Rate [ From Monitor] Pulse Rate [ Right Dorsalis Pedis] Respiratory 24 Rate Blood Pressure 168/97 172/100 176/106 O2 Sat by Pulse 100 100 Oximetry 06/24/18 10:02 Temperature Pulse Rate 86 Pulse Rate [ From Monitor] Pulse Rate [ Right Dorsalis Pedis] Respiratory Rate Blood Pressure 178/107 O2 Sat by Pulse Oximetry Constitutional: no acute distress, alert, other (chronically ill looking middle aged AAM, normocephalic and atraumatic, ) Eyes: non-icteric ENT: oropharynx moist, other (Mallampati 2) Neck: supple, no lymphadenopathy, no JVD, other (no thyromegaly) Effort: mildly labored Ascultation: Bilateral: diminished breath sounds, rales (L>R base), rhonchi ( scant in bases) Percussion: Bilateral: not dull, dull (bases) Cardiovascular: regular rate and rhythm, other (No R/M) Gastrointestinal: hypoactive bowel sounds, soft, tender (mild), other (Distended ; No palpable HSM, bilateral nephrostomy tubes,Colostomy, ZAKI drain) Integumentary: other (femoral vascath) Extremities: no cyanosis, no edema, pulses normal, no ischemia or petechiae Neurologic: normal mental status, non-focal exam, pupils equal and round, other (weak) Psychiatric: mood appropriate, affect normal CBC and BMP: 06/24/18 04:30 06/24/18 04:30 ABG, PT/INR, D-dimer: ABG POC ABG pH 7.517 (7.35-7.45) H 06/24/18 04:33 POC ABG pCO2 50.9 (35-45) H 06/24/18 04:33 POC ABG pO2 170 (80-105) H 06/24/18 04:33 POC ABG HCO3 41.2 06/24/18 04:33 POC ABG Total CO2 43 06/24/18 04:33 POC ABG O2 Sat 100 06/24/18 04:33 PT/INR, D-dimer PT 15.2 Sec. (12.2-14.9) H 06/23/18 08:34 INR 1.15 (0.87-1.13) H 06/23/18 08:34 Abnormal lab findings: Abnormal Labs 05/13/18 05/13/18 05/13/18 04:27 04:27 19:39 WBC RBC 3.13 L Hgb 9.4 L Hct 26.8 L MCV MCHC 35 H RDW Plt Count Lymph % (Auto) [place] % (Auto) 9.6 H Lymph # [place] # Seg Neutrophils % Seg Neuts % (Manual) Lymphocytes % (Manual) Monocytes % (Manual) Seg Neutrophils # Seg Neutrophils # Man Lymphocytes # (Manual) Monocytes # (Manual) PT INR APTT Heparin Anti-Xa Level POC ABG pH POC ABG pCO2 POC ABG pO2 Sodium 132 L Potassium 5.5 H Chloride 94.1 L Carbon Dioxide 19 L BUN 72 H Creatinine 14.4 H Glucose POC Glucose Lactic Acid Calcium Phosphorus Magnesium Iron TIBC AST ALT Alkaline Phosphatase Lactate Dehydrogenase Total Creatine Kinase C-Reactive Protein Total Protein Albumin 2.8 L Prealbumin CA 19-9 Antigen Folate PTH Intact Urine WBC (Auto) Urine Creatinine 66.0 H Urine Chloride 27.8 L Urine Total Protein 24 H Fluid Glucose Fluid Total Protein Vancomycin Trough Miscellaneous Test Crossmatch 08/31/18 09/01/18 09/01/18 20:00 05:05 05:05 WBC RBC Hgb Hct MCV MCHC RDW Plt Count Lymph % (Auto) [place] % (Auto) Lymph # [place] # Seg Neutrophils % Seg Neuts % (Manual) Lymphocytes % (Manual) Monocytes % (Manual) Seg Neutrophils # Seg Neutrophils # Man Lymphocytes # (Manual) Monocytes # (Manual) PT INR APTT Heparin Anti-Xa Level POC ABG pH POC ABG pCO2 POC ABG pO2 Sodium 132 L 131 L Potassium 5.2 H 5.8 H Chloride 93.0 L 95.6 L Carbon Dioxide 19 L 20 L BUN 74 H 81 H Creatinine 15.0 H 16.6 H Glucose 134 H 127 H POC Glucose Lactic Acid Calcium 8.2 L 7.9 L Phosphorus 6.30 H Magnesium Iron TIBC AST ALT Alkaline Phosphatase Lactate Dehydrogenase Total Creatine Kinase 236 H C-Reactive Protein Total Protein Albumin Prealbumin CA 19-9 Antigen Folate PTH Intact 65.37 H Urine WBC (Auto) Urine Creatinine Urine Chloride Urine Total Protein Fluid Glucose Fluid Total Protein Vancomycin Trough Miscellaneous Test Crossmatch 05/14/18 05/14/18 05/14/18 09:28 10:56 13:29 WBC RBC Hgb Hct MCV MCHC RDW Plt Count Lymph % (Auto) [place] % (Auto) Lymph # [place] # Seg Neutrophils % Seg Neuts % (Manual) Lymphocytes % (Manual) Monocytes % (Manual) Seg Neutrophils # Seg Neutrophils # Man Lymphocytes # (Manual) Monocytes # (Manual) PT INR APTT 38.2 H Heparin Anti-Xa Level POC ABG pH POC ABG pCO2 POC ABG pO2 Sodium Potassium Chloride Carbon Dioxide BUN Creatinine Glucose POC Glucose 127 H 126 H Lactic Acid Calcium Phosphorus Magnesium Iron TIBC AST ALT Alkaline Phosphatase Lactate Dehydrogenase Total Creatine Kinase C-Reactive Protein Total Protein Albumin Prealbumin CA 19-9 Antigen Folate PTH Intact Urine WBC (Auto) Urine Creatinine Urine Chloride Urine Total Protein Fluid Glucose Fluid Total Protein Vancomycin Trough Miscellaneous Test Crossmatch 05/15/18 05/15/18 05/16/18 08:06 08:06 07:02 WBC RBC 2.84 L 2.74 L Hgb 8.5 L 8.5 L Hct 24.2 L 23.5 L MCV MCHC 35 H 36 H RDW Plt Count Lymph % (Auto) [place] % (Auto) 10.4 H 11.0 H Lymph # 1.1 L [place] # 0.9 H Seg Neutrophils % 72.6 H Seg Neuts % (Manual) Lymphocytes % (Manual) Monocytes % (Manual) Seg Neutrophils # Seg Neutrophils # Man Lymphocytes # (Manual) Monocytes # (Manual) PT INR APTT Heparin Anti-Xa Level POC ABG pH POC ABG pCO2 POC ABG pO2 Sodium Potassium Chloride Carbon Dioxide 19 L BUN 66 H Creatinine 12.0 H Glucose 115 H POC Glucose Lactic Acid Calcium 8.1 L Phosphorus Magnesium Iron TIBC AST ALT Alkaline Phosphatase Lactate Dehydrogenase Total Creatine Kinase C-Reactive Protein Total Protein Albumin Prealbumin CA 19-9 Antigen Folate PTH Intact Urine WBC (Auto) Urine Creatinine Urine Chloride Urine Total Protein Fluid Glucose Fluid Total Protein Vancomycin Trough Miscellaneous Test Crossmatch 05/16/18 05/16/18 05/17/18 07:02 07:02 05:08 WBC RBC 2.78 L Hgb 8.2 L Hct 23.9 L MCV MCHC RDW Plt Count Lymph % (Auto) [place] % (Auto) 13.9 H Lymph # [place] # 0.9 H Seg Neutrophils % Seg Neuts % (Manual) Lymphocytes % (Manual) Monocytes % (Manual) Seg Neutrophils # Seg Neutrophils # Man Lymphocytes # (Manual) Monocytes # (Manual) PT INR APTT Heparin Anti-Xa Level POC ABG pH POC ABG pCO2 POC ABG pO2 Sodium Potassium Chloride Carbon Dioxide BUN 28 H Creatinine 2.4 H D Glucose POC Glucose Lactic Acid Calcium 8.3 L Phosphorus Magnesium 1.50 L Iron 24 L TIBC 160 L AST ALT Alkaline Phosphatase Lactate Dehydrogenase Total Creatine Kinase C-Reactive Protein Total Protein Albumin Prealbumin CA 19-9 Antigen Folate 5.39 L PTH Intact Urine WBC (Auto) Urine Creatinine Urine Chloride Urine Total Protein Fluid Glucose Fluid Total Protein Vancomycin Trough Miscellaneous Test Crossmatch 05/17/18 05/18/18 05/18/18 05:08 05:57 05:57 WBC RBC 2.79 L Hgb 8.3 L Hct 24.0 L MCV MCHC 35 H RDW Plt Count Lymph % (Auto) [place] % (Auto) 11.8 H Lymph # [place] # 0.9 H Seg Neutrophils % Seg Neuts % (Manual) Lymphocytes % (Manual) Monocytes % (Manual) Seg Neutrophils # Seg Neutrophils # Man Lymphocytes # (Manual) Monocytes # (Manual) PT INR APTT Heparin Anti-Xa Level POC ABG pH POC ABG pCO2 POC ABG pO2 Sodium Potassium Chloride Carbon Dioxide BUN Creatinine Glucose POC Glucose Lactic Acid Calcium 7.7 L 8.0 L Phosphorus Magnesium 1.60 L Iron TIBC AST ALT Alkaline Phosphatase Lactate Dehydrogenase Total Creatine Kinase C-Reactive Protein Total Protein Albumin Prealbumin CA 19-9 Antigen Folate PTH Intact Urine WBC (Auto) Urine Creatinine Urine Chloride Urine Total Protein Fluid Glucose Fluid Total Protein Vancomycin Trough Miscellaneous Test Crossmatch 05/19/18 05/19/18 05/20/18 05:33 05:33 05:38 WBC RBC 2.95 L Hgb 8.8 L Hct 25.8 L MCV MCHC RDW Plt Count Lymph % (Auto) 10.1 L [place] % (Auto) Lymph # 1.1 L [place] # Seg Neutrophils % 85.2 H Seg Neuts % (Manual) Lymphocytes % (Manual) Monocytes % (Manual) Seg Neutrophils # 9.0 H Seg Neutrophils # Man Lymphocytes # (Manual) Monocytes # (Manual) PT INR APTT Heparin Anti-Xa Level POC ABG pH POC ABG pCO2 POC ABG pO2 Sodium 135 L Potassium Chloride Carbon Dioxide BUN Creatinine Glucose 132 H POC Glucose Lactic Acid Calcium 7.8 L 8.3 L Phosphorus Magnesium 1.40 L Iron TIBC AST ALT Alkaline Phosphatase Lactate Dehydrogenase Total Creatine Kinase C-Reactive Protein Total Protein Albumin Prealbumin CA 19-9 Antigen Folate PTH Intact Urine WBC (Auto) Urine Creatinine Urine Chloride Urine Total Protein Fluid Glucose Fluid Total Protein Vancomycin Trough Miscellaneous Test Crossmatch 05/21/18 05/21/18 05/22/18 04:46 15:30 06:49 WBC 20.0 H RBC 2.70 L Hgb 7.8 L Hct 23.3 L MCV MCHC RDW Plt Count Lymph % (Auto) [place] % (Auto) Lymph # [place] # Seg Neutrophils % Seg Neuts % (Manual) 85.0 H Lymphocytes % (Manual) 4.0 L Monocytes % (Manual) Seg Neutrophils # Seg Neutrophils # Man 17.0 H Lymphocytes # (Manual) 0.8 L Monocytes # (Manual) PT INR APTT Heparin Anti-Xa Level POC ABG pH POC ABG pCO2 POC ABG pO2 Sodium 135 L Potassium 3.5 L Chloride Carbon Dioxide 21 L BUN 22 H Creatinine Glucose POC Glucose Lactic Acid Calcium 8.1 L Phosphorus Magnesium Iron TIBC AST ALT Alkaline Phosphatase Lactate Dehydrogenase Total Creatine Kinase C-Reactive Protein Total Protein Albumin Prealbumin CA 19-9 Antigen Folate PTH Intact Urine WBC (Auto) 28.0 H Urine Creatinine Urine Chloride Urine Total Protein Fluid Glucose Fluid Total Protein Vancomycin Trough Miscellaneous Test Crossmatch 05/22/18 05/22/18 05/23/18 06:49 11:23 09:03 WBC RBC Hgb Hct MCV MCHC RDW Plt Count Lymph % (Auto) [place] % (Auto) Lymph # [place] # Seg Neutrophils % Seg Neuts % (Manual) Lymphocytes % (Manual) Monocytes % (Manual) Seg Neutrophils # Seg Neutrophils # Man Lymphocytes # (Manual) Monocytes # (Manual) PT INR APTT Heparin Anti-Xa Level POC ABG pH POC ABG pCO2 POC ABG pO2 Sodium 134 L Potassium 3.5 L Chloride Carbon Dioxide 21 L BUN 35 H 36 H Creatinine 1.7 H Glucose 107 H POC Glucose Lactic Acid Calcium 7.9 L Phosphorus Magnesium 2.50 H Iron TIBC AST ALT Alkaline Phosphatase Lactate Dehydrogenase Total Creatine Kinase C-Reactive Protein Total Protein Albumin Prealbumin CA 19-9 Antigen Folate PTH Intact Urine WBC (Auto) Urine Creatinine Urine Chloride Urine Total Protein Fluid Glucose Fluid Total Protein Vancomycin Trough Miscellaneous Test Crossmatch See Detail 05/23/18 05/23/18 05/23/18 09:03 09:03 17:34 WBC 26.3 H RBC 3.57 L Hgb 10.4 L Hct 31.1 L D MCV MCHC RDW Plt Count Lymph % (Auto) [place] % (Auto) Lymph # [place] # Seg Neutrophils % Seg Neuts % (Manual) Lymphocytes % (Manual) Monocytes % (Manual) Seg Neutrophils # Seg Neutrophils # Man Lymphocytes # (Manual) Monocytes # (Manual) PT 18.3 H INR 1.43 H APTT 40.0 H Heparin Anti-Xa Level POC ABG pH POC ABG pCO2 POC ABG pO2 Sodium Potassium Chloride Carbon Dioxide BUN Creatinine Glucose POC Glucose 108 H Lactic Acid Calcium Phosphorus Magnesium Iron TIBC AST ALT Alkaline Phosphatase Lactate Dehydrogenase Total Creatine Kinase C-Reactive Protein Total Protein Albumin Prealbumin CA 19-9 Antigen Folate PTH Intact Urine WBC (Auto) Urine Creatinine Urine Chloride Urine Total Protein Fluid Glucose Fluid Total Protein Vancomycin Trough Miscellaneous Test Crossmatch 05/23/18 05/24/18 05/24/18 21:14 04:43 08:04 WBC RBC Hgb Hct MCV MCHC RDW Plt Count Lymph % (Auto) [place] % (Auto) Lymph # [place] # Seg Neutrophils % Seg Neuts % (Manual) Lymphocytes % (Manual) Monocytes % (Manual) Seg Neutrophils # Seg Neutrophils # Man Lymphocytes # (Manual) Monocytes # (Manual) PT INR APTT Heparin Anti-Xa Level POC ABG pH POC ABG pCO2 POC ABG pO2 Sodium 146 H Potassium Chloride 108.6 H Carbon Dioxide BUN 33 H Creatinine Glucose 109 H POC Glucose 110 H 106 H Lactic Acid Calcium 8.3 L Phosphorus Magnesium 2.50 H Iron TIBC AST ALT Alkaline Phosphatase Lactate Dehydrogenase Total Creatine Kinase C-Reactive Protein Total Protein Albumin Prealbumin CA 19-9 Antigen Folate PTH Intact Urine WBC (Auto) Urine Creatinine Urine Chloride Urine Total Protein Fluid Glucose Fluid Total Protein Vancomycin Trough Miscellaneous Test Crossmatch 05/25/18 05/25/18 05/25/18 05:42 05:49 19:50 WBC RBC Hgb Hct MCV MCHC RDW Plt Count Lymph % (Auto) [place] % (Auto) Lymph # [place] # Seg Neutrophils % Seg Neuts % (Manual) Lymphocytes % (Manual) Monocytes % (Manual) Seg Neutrophils # Seg Neutrophils # Man Lymphocytes # (Manual) Monocytes # (Manual) PT INR APTT Heparin Anti-Xa Level POC ABG pH POC ABG pCO2 POC ABG pO2 Sodium 150 H Potassium Chloride 112.5 H Carbon Dioxide BUN 34 H Creatinine Glucose 102 H POC Glucose 107 H Lactic Acid Calcium Phosphorus Magnesium Iron TIBC AST ALT Alkaline Phosphatase Lactate Dehydrogenase Total Creatine Kinase C-Reactive Protein 34.50 H Total Protein Albumin Prealbumin CA 19-9 Antigen Folate PTH Intact Urine WBC (Auto) Urine Creatinine Urine Chloride Urine Total Protein Fluid Glucose Fluid Total Protein Vancomycin Trough Miscellaneous Test Crossmatch 05/25/18 05/25/18 05/25/18 19:50 21:05 22:46 WBC RBC Hgb Hct MCV MCHC RDW Plt Count Lymph % (Auto) [place] % (Auto) Lymph # [place] # Seg Neutrophils % Seg Neuts % (Manual) Lymphocytes % (Manual) Monocytes % (Manual) Seg Neutrophils # Seg Neutrophils # Man Lymphocytes # (Manual) Monocytes # (Manual) PT INR APTT Heparin Anti-Xa Level POC ABG pH 7.483 H POC ABG pCO2 24.0 L POC ABG pO2 72 L Sodium Potassium Chloride Carbon Dioxide BUN Creatinine Glucose POC Glucose Lactic Acid 5.90 H* Calcium Phosphorus Magnesium Iron TIBC AST ALT Alkaline Phosphatase Lactate Dehydrogenase Total Creatine Kinase C-Reactive Protein Total Protein Albumin Prealbumin CA 19-9 Antigen Folate PTH Intact Urine WBC (Auto) Urine Creatinine Urine Chloride Urine Total Protein Fluid Glucose Fluid Total Protein Vancomycin Trough 25.1 H Miscellaneous Test Crossmatch 05/25/18 05/26/18 05/26/18 22:46 00:21 00:51 WBC RBC Hgb Hct MCV MCHC RDW Plt Count Lymph % (Auto) [place] % (Auto) Lymph # [place] # Seg Neutrophils % Seg Neuts % (Manual) Lymphocytes % (Manual) Monocytes % (Manual) Seg Neutrophils # Seg Neutrophils # Man Lymphocytes # (Manual) Monocytes # (Manual) PT INR APTT Heparin Anti-Xa Level POC ABG pH POC ABG pCO2 POC ABG pO2 Sodium Potassium Chloride Carbon Dioxide BUN Creatinine Glucose POC Glucose 133 H Lactic Acid 8.10 H* 6.20 H* Calcium Phosphorus Magnesium Iron TIBC AST ALT Alkaline Phosphatase Lactate Dehydrogenase Total Creatine Kinase C-Reactive Protein Total Protein Albumin Prealbumin CA 19-9 Antigen Folate PTH Intact Urine WBC (Auto) Urine Creatinine Urine Chloride Urine Total Protein Fluid Glucose Fluid Total Protein Vancomycin Trough Miscellaneous Test Crossmatch 05/26/18 05/26/18 05/26/18 01:13 02:24 02:24 WBC 18.7 H RBC Hgb 11.6 L Hct MCV MCHC RDW Plt Count Lymph % (Auto) [place] % (Auto) Lymph # [place] # Seg Neutrophils % Seg Neuts % (Manual) Lymphocytes % (Manual) Monocytes % (Manual) Seg Neutrophils # Seg Neutrophils # Man Lymphocytes # (Manual) Monocytes # (Manual) PT INR APTT Heparin Anti-Xa Level POC ABG pH POC ABG pCO2 POC ABG pO2 Sodium 147 H Potassium 6.2 H* D Chloride 111.9 H Carbon Dioxide 19 L BUN 80 H Creatinine 5.1 H D Glucose 112 H POC Glucose Lactic Acid 5.20 H* Calcium 6.7 L D Phosphorus Magnesium Iron TIBC AST ALT Alkaline Phosphatase Lactate Dehydrogenase Total Creatine Kinase C-Reactive Protein Total Protein Albumin Prealbumin CA 19-9 Antigen Folate PTH Intact Urine WBC (Auto) Urine Creatinine Urine Chloride Urine Total Protein Fluid Glucose Fluid Total Protein Vancomycin Trough Miscellaneous Test Crossmatch 05/26/18 05/26/18 05/26/18 04:20 04:20 05:39 WBC RBC Hgb Hct MCV MCHC RDW Plt Count Lymph % (Auto) [place] % (Auto) Lymph # [place] # Seg Neutrophils % Seg Neuts % (Manual) Lymphocytes % (Manual) Monocytes % (Manual) Seg Neutrophils # Seg Neutrophils # Man Lymphocytes # (Manual) Monocytes # (Manual) PT INR APTT Heparin Anti-Xa Level POC ABG pH POC ABG pCO2 POC ABG pO2 Sodium 150 H Potassium Chloride 110.0 H Carbon Dioxide 19 L BUN 66 H Creatinine Glucose 166 H POC Glucose 187 H Lactic Acid 5.10 H* Calcium 6.9 L Phosphorus 6.70 H D Magnesium Iron TIBC AST ALT Alkaline Phosphatase Lactate Dehydrogenase Total Creatine Kinase C-Reactive Protein Total Protein Albumin Prealbumin CA 19-9 Antigen Folate PTH Intact Urine WBC (Auto) Urine Creatinine Urine Chloride Urine Total Protein Fluid Glucose Fluid Total Protein Vancomycin Trough Miscellaneous Test Crossmatch 05/26/18 05/26/18 05/26/18 06:02 07:29 11:00 WBC RBC Hgb Hct MCV MCHC RDW Plt Count Lymph % (Auto) [place] % (Auto) Lymph # [place] # Seg Neutrophils % Seg Neuts % (Manual) Lymphocytes % (Manual) Monocytes % (Manual) Seg Neutrophils # Seg Neutrophils # Man Lymphocytes # (Manual) Monocytes # (Manual) PT INR APTT Heparin Anti-Xa Level POC ABG pH POC ABG pCO2 28.8 L POC ABG pO2 Sodium Potassium Chloride Carbon Dioxide BUN Creatinine Glucose POC Glucose Lactic Acid 4.80 H* 3.80 H* Calcium Phosphorus Magnesium Iron TIBC AST ALT Alkaline Phosphatase Lactate Dehydrogenase Total Creatine Kinase C-Reactive Protein Total Protein Albumin Prealbumin CA 19-9 Antigen Folate PTH Intact Urine WBC (Auto) Urine Creatinine Urine Chloride Urine Total Protein Fluid Glucose Fluid Total Protein Vancomycin Trough Miscellaneous Test Crossmatch 05/26/18 05/26/18 05/26/18 11:01 12:28 18:00 WBC RBC Hgb Hct MCV MCHC RDW Plt Count Lymph % (Auto) [place] % (Auto) Lymph # [place] # Seg Neutrophils % Seg Neuts % (Manual) Lymphocytes % (Manual) Monocytes % (Manual) Seg Neutrophils # Seg Neutrophils # Man Lymphocytes # (Manual) Monocytes # (Manual) PT INR APTT Heparin Anti-Xa Level POC ABG pH POC ABG pCO2 POC ABG pO2 Sodium 150 H 151 H Potassium 5.3 H D 6.1 H* Chloride 110.3 H 117.0 H Carbon Dioxide 21 L 20 L BUN 75 H 77 H Creatinine 4.3 H D 4.6 H Glucose 161 H POC Glucose 114 H Lactic Acid Calcium 7.5 L 6.7 L Phosphorus Magnesium Iron TIBC AST 1041 H ALT 406 H Alkaline Phosphatase 281 H Lactate Dehydrogenase Total Creatine Kinase C-Reactive Protein Total Protein 4.4 L Albumin 1.3 L Prealbumin CA 19-9 Antigen Folate PTH Intact Urine WBC (Auto) Urine Creatinine Urine Chloride Urine Total Protein Fluid Glucose Fluid Total Protein Vancomycin Trough Miscellaneous Test Crossmatch 05/26/18 05/26/18 05/27/18 18:02 19:17 01:01 WBC 21.7 H RBC 2.70 L Hgb 7.8 L D Hct 24.6 L D MCV MCHC RDW 15.3 H Plt Count Lymph % (Auto) [place] % (Auto) Lymph # [place] # Seg Neutrophils % Seg Neuts % (Manual) 94.0 H Lymphocytes % (Manual) 3.0 L Monocytes % (Manual) Seg Neutrophils # Seg Neutrophils # Man 20.4 H Lymphocytes # (Manual) 0.7 L Monocytes # (Manual) PT INR APTT Heparin Anti-Xa Level POC ABG pH 7.159 L 7.205 L POC ABG pCO2 54.5 H 53.0 H POC ABG pO2 252 H Sodium Potassium Chloride Carbon Dioxide BUN Creatinine Glucose POC Glucose Lactic Acid Calcium Phosphorus Magnesium Iron TIBC AST ALT Alkaline Phosphatase Lactate Dehydrogenase Total Creatine Kinase C-Reactive Protein Total Protein Albumin Prealbumin CA 19-9 Antigen Folate PTH Intact Urine WBC (Auto) Urine Creatinine Urine Chloride Urine Total Protein Fluid Glucose Fluid Total Protein Vancomycin Trough Miscellaneous Test Crossmatch 05/27/18 05/27/18 05/27/18 05:15 05:15 06:11 WBC 24.9 H RBC 2.86 L Hgb 8.1 L Hct 25.9 L MCV MCHC RDW 15.5 H Plt Count Lymph % (Auto) [place] % (Auto) Lymph # [place] # Seg Neutrophils % Seg Neuts % (Manual) Lymphocytes % (Manual) Monocytes % (Manual) Seg Neutrophils # Seg Neutrophils # Man Lymphocytes # (Manual) Monocytes # (Manual) PT INR APTT Heparin Anti-Xa Level POC ABG pH 7.265 L POC ABG pCO2 46.2 H POC ABG pO2 111 H Sodium 149 H Potassium 6.9 H* Chloride 113.5 H Carbon Dioxide BUN 89 H Creatinine 5.2 H Glucose 118 H POC Glucose Lactic Acid Calcium 7.0 L Phosphorus 9.70 H D Magnesium Iron TIBC AST 876 H ALT 408 H Alkaline Phosphatase Lactate Dehydrogenase Total Creatine Kinase C-Reactive Protein Total Protein 5.2 L Albumin 1.5 L Prealbumin CA 19-9 Antigen Folate PTH Intact Urine WBC (Auto) Urine Creatinine Urine Chloride Urine Total Protein Fluid Glucose Fluid Total Protein Vancomycin Trough Miscellaneous Test Crossmatch 05/27/18 05/27/18 05/27/18 08:48 10:22 10:22 WBC RBC Hgb Hct MCV MCHC RDW Plt Count Lymph % (Auto) [place] % (Auto) Lymph # [place] # Seg Neutrophils % Seg Neuts % (Manual) Lymphocytes % (Manual) Monocytes % (Manual) Seg Neutrophils # Seg Neutrophils # Man Lymphocytes # (Manual) Monocytes # (Manual) PT INR APTT Heparin Anti-Xa Level POC ABG pH POC ABG pCO2 POC ABG pO2 Sodium 146 H Potassium 6.1 H* Chloride 108.2 H Carbon Dioxide 21 L BUN 88 H Creatinine 5.6 H Glucose 163 H POC Glucose 164 H Lactic Acid Calcium 6.7 L Phosphorus Magnesium Iron TIBC AST ALT Alkaline Phosphatase Lactate Dehydrogenase Total Creatine Kinase C-Reactive Protein 40.70 H Total Protein Albumin Prealbumin CA 19-9 Antigen Folate PTH Intact Urine WBC (Auto) Urine Creatinine Urine Chloride Urine Total Protein Fluid Glucose Fluid Total Protein Vancomycin Trough Miscellaneous Test Crossmatch 05/27/18 05/27/18 05/27/18 13:02 17:39 23:27 WBC RBC Hgb Hct MCV MCHC RDW Plt Count Lymph % (Auto) [place] % (Auto) Lymph # [place] # Seg Neutrophils % Seg Neuts % (Manual) Lymphocytes % (Manual) Monocytes % (Manual) Seg Neutrophils # Seg Neutrophils # Man Lymphocytes # (Manual) Monocytes # (Manual) PT INR APTT Heparin Anti-Xa Level POC ABG pH POC ABG pCO2 POC ABG pO2 Sodium Potassium Chloride Carbon Dioxide BUN Creatinine Glucose POC Glucose 59 L 132 H Lactic Acid Calcium Phosphorus Magnesium Iron TIBC AST ALT Alkaline Phosphatase Lactate Dehydrogenase Total Creatine Kinase C-Reactive Protein Total Protein Albumin Prealbumin CA 19-9 Antigen Folate PTH Intact Urine WBC (Auto) Urine Creatinine Urine Chloride Urine Total Protein Fluid Glucose Fluid Total Protein Vancomycin Trough Miscellaneous Test Flexitest 1 H Crossmatch 05/27/18 05/28/18 05/28/18 Unknown 04:32 05:00 WBC RBC Hgb Hct MCV MCHC RDW Plt Count Lymph % (Auto) [place] % (Auto) Lymph # [place] # Seg Neutrophils % Seg Neuts % (Manual) Lymphocytes % (Manual) Monocytes % (Manual) Seg Neutrophils # Seg Neutrophils # Man Lymphocytes # (Manual) Monocytes # (Manual) PT INR APTT Heparin Anti-Xa Level POC ABG pH POC ABG pCO2 POC ABG pO2 134 H Sodium Potassium Chloride Carbon Dioxide BUN 69 H Creatinine 4.4 H Glucose 118 H POC Glucose Lactic Acid Calcium 8.0 L D Phosphorus 6.80 H D Magnesium Iron TIBC AST ALT Alkaline Phosphatase Lactate Dehydrogenase Total Creatine Kinase C-Reactive Protein Total Protein Albumin Prealbumin CA 19-9 Antigen Folate PTH Intact Urine WBC (Auto) 120.0 H Urine Creatinine Urine Chloride Urine Total Protein Fluid Glucose Fluid Total Protein Vancomycin Trough Miscellaneous Test Crossmatch 05/28/18 05/28/18 05/28/18 05:00 05:27 13:04 WBC 26.5 H RBC 2.69 L Hgb 7.7 L Hct 23.6 L MCV MCHC RDW Plt Count Lymph % (Auto) [place] % (Auto) Lymph # [place] # Seg Neutrophils % Seg Neuts % (Manual) 96.0 H Lymphocytes % (Manual) 0 L Monocytes % (Manual) Seg Neutrophils # Seg Neutrophils # Man 25.4 H Lymphocytes # (Manual) 0.0 L Monocytes # (Manual) PT INR APTT Heparin Anti-Xa Level POC ABG pH POC ABG pCO2 POC ABG pO2 Sodium Potassium Chloride Carbon Dioxide BUN Creatinine Glucose POC Glucose 128 H 155 H Lactic Acid Calcium Phosphorus Magnesium Iron TIBC AST ALT Alkaline Phosphatase Lactate Dehydrogenase Total Creatine Kinase C-Reactive Protein Total Protein Albumin Prealbumin CA 19-9 Antigen Folate PTH Intact Urine WBC (Auto) Urine Creatinine Urine Chloride Urine Total Protein Fluid Glucose Fluid Total Protein Vancomycin Trough Miscellaneous Test Crossmatch 05/28/18 05/29/18 05/29/18 17:56 03:35 04:00 WBC RBC Hgb Hct MCV MCHC RDW Plt Count Lymph % (Auto) [place] % (Auto) Lymph # [place] # Seg Neutrophils % Seg Neuts % (Manual) Lymphocytes % (Manual) Monocytes % (Manual) Seg Neutrophils # Seg Neutrophils # Man Lymphocytes # (Manual) Monocytes # (Manual) PT INR APTT Heparin Anti-Xa Level POC ABG pH 7.471 H POC ABG pCO2 POC ABG pO2 78 L Sodium Potassium Chloride Carbon Dioxide BUN 50 H Creatinine 3.9 H Glucose POC Glucose 110 H Lactic Acid Calcium 7.7 L Phosphorus Magnesium 1.50 L Iron TIBC AST 218 H ALT 204 H Alkaline Phosphatase Lactate Dehydrogenase Total Creatine Kinase C-Reactive Protein Total Protein 5.4 L Albumin 1.6 L Prealbumin CA 19-9 Antigen Folate PTH Intact Urine WBC (Auto) Urine Creatinine Urine Chloride Urine Total Protein Fluid Glucose Fluid Total Protein Vancomycin Trough Miscellaneous Test Crossmatch 05/29/18 05/29/18 05/30/18 11:51 23:56 04:54 WBC RBC Hgb Hct MCV MCHC RDW Plt Count Lymph % (Auto) [place] % (Auto) Lymph # [place] # Seg Neutrophils % Seg Neuts % (Manual) Lymphocytes % (Manual) Monocytes % (Manual) Seg Neutrophils # Seg Neutrophils # Man Lymphocytes # (Manual) Monocytes # (Manual) PT INR APTT Heparin Anti-Xa Level POC ABG pH POC ABG pCO2 POC ABG pO2 Sodium Potassium Chloride Carbon Dioxide BUN Creatinine Glucose POC Glucose 131 H 119 H 115 H Lactic Acid Calcium Phosphorus Magnesium Iron TIBC AST ALT Alkaline Phosphatase Lactate Dehydrogenase Total Creatine Kinase C-Reactive Protein Total Protein Albumin Prealbumin CA 19-9 Antigen Folate PTH Intact Urine WBC (Auto) Urine Creatinine Urine Chloride Urine Total Protein Fluid Glucose Fluid Total Protein Vancomycin Trough Miscellaneous Test Crossmatch 05/30/18 05/30/18 05/30/18 05:07 05:15 05:15 WBC 16.2 H RBC 2.53 L Hgb 7.4 L Hct 21.9 L MCV MCHC RDW Plt Count Lymph % (Auto) [place] % (Auto) Lymph # [place] # Seg Neutrophils % Seg Neuts % (Manual) Lymphocytes % (Manual) Monocytes % (Manual) Seg Neutrophils # Seg Neutrophils # Man Lymphocytes # (Manual) Monocytes # (Manual) PT INR APTT Heparin Anti-Xa Level POC ABG pH POC ABG pCO2 34.5 L POC ABG pO2 133 H Sodium 135 L Potassium Chloride 97.5 L Carbon Dioxide BUN 69 H Creatinine 5.4 H Glucose 105 H POC Glucose Lactic Acid Calcium 7.5 L Phosphorus 5.30 H D Magnesium Iron TIBC AST ALT Alkaline Phosphatase Lactate Dehydrogenase Total Creatine Kinase C-Reactive Protein Total Protein Albumin Prealbumin CA 19-9 Antigen Folate PTH Intact Urine WBC (Auto) Urine Creatinine Urine Chloride Urine Total Protein Fluid Glucose Fluid Total Protein Vancomycin Trough Miscellaneous Test Crossmatch 05/30/18 05/30/18 05/31/18 12:13 17:10 04:50 WBC 18.7 H RBC 2.86 L Hgb 8.2 L Hct 24.8 L MCV MCHC RDW Plt Count Lymph % (Auto) [place] % (Auto) Lymph # [place] # Seg Neutrophils % Seg Neuts % (Manual) 91.0 H Lymphocytes % (Manual) 2.0 L Monocytes % (Manual) Seg Neutrophils # Seg Neutrophils # Man 17.0 H Lymphocytes # (Manual) 0.4 L Monocytes # (Manual) PT INR APTT Heparin Anti-Xa Level POC ABG pH POC ABG pCO2 POC ABG pO2 Sodium Potassium Chloride Carbon Dioxide BUN Creatinine Glucose POC Glucose 132 H 122 H Lactic Acid Calcium Phosphorus Magnesium Iron TIBC AST ALT Alkaline Phosphatase Lactate Dehydrogenase Total Creatine Kinase C-Reactive Protein Total Protein Albumin Prealbumin CA 19-9 Antigen Folate PTH Intact Urine WBC (Auto) Urine Creatinine Urine Chloride Urine Total Protein Fluid Glucose Fluid Total Protein Vancomycin Trough Miscellaneous Test Crossmatch 05/31/18 05/31/18 05/31/18 04:50 05:45 11:37 WBC RBC Hgb Hct MCV MCHC RDW Plt Count Lymph % (Auto) [place] % (Auto) Lymph # [place] # Seg Neutrophils % Seg Neuts % (Manual) Lymphocytes % (Manual) Monocytes % (Manual) Seg Neutrophils # Seg Neutrophils # Man Lymphocytes # (Manual) Monocytes # (Manual) PT INR APTT Heparin Anti-Xa Level POC ABG pH POC ABG pCO2 POC ABG pO2 Sodium 132 L Potassium Chloride 92.4 L Carbon Dioxide BUN 77 H Creatinine 5.9 H Glucose POC Glucose 111 H 136 H Lactic Acid Calcium 7.3 L Phosphorus 6.40 H D Magnesium Iron TIBC AST ALT Alkaline Phosphatase Lactate Dehydrogenase Total Creatine Kinase C-Reactive Protein Total Protein Albumin Prealbumin CA 19-9 Antigen Folate PTH Intact Urine WBC (Auto) Urine Creatinine Urine Chloride Urine Total Protein Fluid Glucose Fluid Total Protein Vancomycin Trough Miscellaneous Test Crossmatch 05/31/18 06/01/18 06/01/18 17:52 00:09 04:00 WBC RBC Hgb Hct MCV MCHC RDW Plt Count Lymph % (Auto) [place] % (Auto) Lymph # [place] # Seg Neutrophils % Seg Neuts % (Manual) Lymphocytes % (Manual) Monocytes % (Manual) Seg Neutrophils # Seg Neutrophils # Man Lymphocytes # (Manual) Monocytes # (Manual) PT INR APTT Heparin Anti-Xa Level POC ABG pH POC ABG pCO2 POC ABG pO2 Sodium Potassium Chloride 97.5 L Carbon Dioxide BUN 49 H Creatinine 4.2 H Glucose 104 H POC Glucose 115 H 114 H Lactic Acid Calcium 7.3 L Phosphorus 4.70 H D Magnesium Iron TIBC AST ALT Alkaline Phosphatase Lactate Dehydrogenase Total Creatine Kinase C-Reactive Protein Total Protein Albumin Prealbumin CA 19-9 Antigen Folate PTH Intact Urine WBC (Auto) Urine Creatinine Urine Chloride Urine Total Protein Fluid Glucose Fluid Total Protein Vancomycin Trough Miscellaneous Test Crossmatch 06/01/18 06/01/18 06/02/18 11:10 17:56 00:15 WBC RBC Hgb Hct MCV MCHC RDW Plt Count Lymph % (Auto) [place] % (Auto) Lymph # [place] # Seg Neutrophils % Seg Neuts % (Manual) Lymphocytes % (Manual) Monocytes % (Manual) Seg Neutrophils # Seg Neutrophils # Man Lymphocytes # (Manual) Monocytes # (Manual) PT INR APTT Heparin Anti-Xa Level POC ABG pH POC ABG pCO2 POC ABG pO2 Sodium Potassium Chloride Carbon Dioxide BUN Creatinine Glucose POC Glucose 123 H 126 H 135 H Lactic Acid Calcium Phosphorus Magnesium Iron TIBC AST ALT Alkaline Phosphatase Lactate Dehydrogenase Total Creatine Kinase C-Reactive Protein Total Protein Albumin Prealbumin CA 19-9 Antigen Folate PTH Intact Urine WBC (Auto) Urine Creatinine Urine Chloride Urine Total Protein Fluid Glucose Fluid Total Protein Vancomycin Trough Miscellaneous Test Crossmatch 06/02/18 06/02/18 06/02/18 05:23 12:42 13:05 WBC RBC Hgb Hct MCV MCHC RDW Plt Count Lymph % (Auto) [place] % (Auto) Lymph # [place] # Seg Neutrophils % Seg Neuts % (Manual) Lymphocytes % (Manual) Monocytes % (Manual) Seg Neutrophils # Seg Neutrophils # Man Lymphocytes # (Manual) Monocytes # (Manual) PT 17.1 H INR 1.34 H APTT Heparin Anti-Xa Level POC ABG pH POC ABG pCO2 POC ABG pO2 Sodium Potassium Chloride Carbon Dioxide BUN Creatinine Glucose POC Glucose 135 H 142 H Lactic Acid Calcium Phosphorus Magnesium Iron TIBC AST ALT Alkaline Phosphatase Lactate Dehydrogenase Total Creatine Kinase C-Reactive Protein Total Protein Albumin Prealbumin CA 19-9 Antigen Folate PTH Intact Urine WBC (Auto) Urine Creatinine Urine Chloride Urine Total Protein Fluid Glucose Fluid Total Protein Vancomycin Trough Miscellaneous Test Crossmatch 06/02/18 06/02/18 06/03/18 Unknown Unknown 00:54 WBC 20.8 H RBC 2.67 L Hgb 7.7 L Hct 23.0 L MCV MCHC RDW Plt Count 500 H Lymph % (Auto) [place] % (Auto) Lymph # [place] # Seg Neutrophils % Seg Neuts % (Manual) Lymphocytes % (Manual) Monocytes % (Manual) Seg Neutrophils # Seg Neutrophils # Man Lymphocytes # (Manual) Monocytes # (Manual) PT INR APTT Heparin Anti-Xa Level POC ABG pH POC ABG pCO2 POC ABG pO2 Sodium 136 L Potassium 3.5 L Chloride 96.9 L Carbon Dioxide BUN 62 H Creatinine 4.9 H Glucose 133 H POC Glucose 125 H Lactic Acid Calcium 7.2 L Phosphorus 5.00 H Magnesium Iron TIBC AST 46 H ALT 66 H Alkaline Phosphatase Lactate Dehydrogenase Total Creatine Kinase C-Reactive Protein Total Protein 5.7 L Albumin 1.5 L Prealbumin CA 19-9 Antigen Folate PTH Intact Urine WBC (Auto) Urine Creatinine Urine Chloride Urine Total Protein Fluid Glucose Fluid Total Protein Vancomycin Trough Miscellaneous Test Crossmatch 06/03/18 06/03/18 06/03/18 03:31 09:18 09:18 WBC RBC Hgb Hct MCV MCHC RDW Plt Count Lymph % (Auto) [place] % (Auto) Lymph # [place] # Seg Neutrophils % Seg Neuts % (Manual) Lymphocytes % (Manual) Monocytes % (Manual) Seg Neutrophils # Seg Neutrophils # Man Lymphocytes # (Manual) Monocytes # (Manual) PT 17.1 H INR 1.34 H APTT Heparin Anti-Xa Level POC ABG pH POC ABG pCO2 POC ABG pO2 Sodium 136 L Potassium Chloride Carbon Dioxide BUN 41 H Creatinine 3.4 H Glucose 129 H POC Glucose Lactic Acid Calcium 7.4 L Phosphorus Magnesium Iron TIBC AST ALT Alkaline Phosphatase Lactate Dehydrogenase Total Creatine Kinase C-Reactive Protein 11.10 H Total Protein Albumin Prealbumin CA 19-9 Antigen Folate PTH Intact Urine WBC (Auto) Urine Creatinine Urine Chloride Urine Total Protein Fluid Glucose Fluid Total Protein Vancomycin Trough Miscellaneous Test Crossmatch 06/03/18 06/03/18 06/03/18 16:07 21:18 Unknown WBC RBC Hgb Hct MCV MCHC RDW Plt Count Lymph % (Auto) [place] % (Auto) Lymph # [place] # Seg Neutrophils % Seg Neuts % (Manual) Lymphocytes % (Manual) Monocytes % (Manual) Seg Neutrophils # Seg Neutrophils # Man Lymphocytes # (Manual) Monocytes # (Manual) PT INR APTT Heparin Anti-Xa Level POC ABG pH POC ABG pCO2 POC ABG pO2 Sodium Potassium Chloride Carbon Dioxide BUN Creatinine Glucose POC Glucose 144 H 128 H Lactic Acid Calcium Phosphorus Magnesium Iron TIBC AST ALT Alkaline Phosphatase Lactate Dehydrogenase Total Creatine Kinase C-Reactive Protein Total Protein Albumin Prealbumin CA 19-9 Antigen Folate PTH Intact Urine WBC (Auto) Urine Creatinine Urine Chloride Urine Total Protein Fluid Glucose 10 L Fluid Total Protein 3.7 L Vancomycin Trough Miscellaneous Test Crossmatch 06/04/18 06/04/18 06/04/18 04:31 06:14 11:38 WBC RBC Hgb Hct MCV MCHC RDW Plt Count Lymph % (Auto) [place] % (Auto) Lymph # [place] # Seg Neutrophils % Seg Neuts % (Manual) Lymphocytes % (Manual) Monocytes % (Manual) Seg Neutrophils # Seg Neutrophils # Man Lymphocytes # (Manual) Monocytes # (Manual) PT INR APTT Heparin Anti-Xa Level POC ABG pH POC ABG pCO2 POC ABG pO2 Sodium Potassium Chloride Carbon Dioxide BUN 55 H Creatinine 3.7 H Glucose 151 H POC Glucose 145 H 129 H Lactic Acid Calcium 7.8 L Phosphorus 4.60 H Magnesium Iron TIBC AST ALT Alkaline Phosphatase Lactate Dehydrogenase Total Creatine Kinase C-Reactive Protein Total Protein Albumin Prealbumin CA 19-9 Antigen Folate PTH Intact Urine WBC (Auto) Urine Creatinine Urine Chloride Urine Total Protein Fluid Glucose Fluid Total Protein Vancomycin Trough Miscellaneous Test Crossmatch 06/04/18 06/04/18 06/04/18 17:09 20:00 21:29 WBC RBC Hgb 8.8 L Hct 27.3 L MCV MCHC RDW Plt Count Lymph % (Auto) [place] % (Auto) Lymph # [place] # Seg Neutrophils % Seg Neuts % (Manual) Lymphocytes % (Manual) Monocytes % (Manual) Seg Neutrophils # Seg Neutrophils # Man Lymphocytes # (Manual) Monocytes # (Manual) PT INR APTT Heparin Anti-Xa Level POC ABG pH POC ABG pCO2 POC ABG pO2 Sodium Potassium Chloride Carbon Dioxide BUN Creatinine Glucose POC Glucose 142 H 130 H Lactic Acid Calcium Phosphorus Magnesium Iron TIBC AST ALT Alkaline Phosphatase Lactate Dehydrogenase Total Creatine Kinase C-Reactive Protein Total Protein Albumin Prealbumin CA 19-9 Antigen Folate PTH Intact Urine WBC (Auto) Urine Creatinine Urine Chloride Urine Total Protein Fluid Glucose Fluid Total Protein Vancomycin Trough Miscellaneous Test Crossmatch 06/05/18 06/05/18 06/05/18 06:30 07:00 07:00 WBC 19.3 H RBC 2.94 L Hgb 8.3 L Hct 25.6 L MCV MCHC RDW 15.7 H Plt Count 568 H Lymph % (Auto) 4.7 L [place] % (Auto) Lymph # 0.9 L [place] # 1.1 H Seg Neutrophils % 88.9 H Seg Neuts % (Manual) Lymphocytes % (Manual) Monocytes % (Manual) Seg Neutrophils # 17.2 H Seg Neutrophils # Man Lymphocytes # (Manual) Monocytes # (Manual) PT INR APTT Heparin Anti-Xa Level POC ABG pH POC ABG pCO2 POC ABG pO2 Sodium Potassium 3.4 L D Chloride Carbon Dioxide BUN 67 H Creatinine 3.6 H Glucose 145 H POC Glucose 153 H Lactic Acid Calcium 7.9 L Phosphorus 4.60 H Magnesium Iron TIBC AST ALT Alkaline Phosphatase Lactate Dehydrogenase Total Creatine Kinase C-Reactive Protein Total Protein Albumin Prealbumin CA 19-9 Antigen Folate PTH Intact Urine WBC (Auto) Urine Creatinine Urine Chloride Urine Total Protein Fluid Glucose Fluid Total Protein Vancomycin Trough Miscellaneous Test Crossmatch 06/05/18 06/05/18 06/06/18 12:10 16:01 06:39 WBC RBC Hgb Hct MCV MCHC RDW Plt Count Lymph % (Auto) [place] % (Auto) Lymph # [place] # Seg Neutrophils % Seg Neuts % (Manual) Lymphocytes % (Manual) Monocytes % (Manual) Seg Neutrophils # Seg Neutrophils # Man Lymphocytes # (Manual) Monocytes # (Manual) PT INR APTT Heparin Anti-Xa Level POC ABG pH POC ABG pCO2 POC ABG pO2 Sodium Potassium Chloride Carbon Dioxide BUN Creatinine Glucose POC Glucose 150 H 129 H 131 H Lactic Acid Calcium Phosphorus Magnesium Iron TIBC AST ALT Alkaline Phosphatase Lactate Dehydrogenase Total Creatine Kinase C-Reactive Protein Total Protein Albumin Prealbumin CA 19-9 Antigen Folate PTH Intact Urine WBC (Auto) Urine Creatinine Urine Chloride Urine Total Protein Fluid Glucose Fluid Total Protein Vancomycin Trough Miscellaneous Test Crossmatch 06/06/18 06/06/18 06/06/18 07:14 07:14 07:14 WBC 16.5 H RBC 2.84 L Hgb 8.1 L Hct 25.2 L MCV MCHC RDW 16.4 H Plt Count 526 H Lymph % (Auto) 6.5 L [place] % (Auto) Lymph # 1.1 L [place] # 1.2 H Seg Neutrophils % 85.3 H Seg Neuts % (Manual) Lymphocytes % (Manual) Monocytes % (Manual) Seg Neutrophils # 14.1 H Seg Neutrophils # Man Lymphocytes # (Manual) Monocytes # (Manual) PT INR APTT Heparin Anti-Xa Level POC ABG pH POC ABG pCO2 POC ABG pO2 Sodium Potassium Chloride 109.1 H Carbon Dioxide 21 L BUN 76 H Creatinine 3.5 H Glucose 111 H POC Glucose Lactic Acid Calcium 8.1 L Phosphorus Magnesium Iron TIBC AST ALT Alkaline Phosphatase Lactate Dehydrogenase Total Creatine Kinase C-Reactive Protein 4.70 H Total Protein Albumin Prealbumin CA 19-9 Antigen Folate PTH Intact Urine WBC (Auto) Urine Creatinine Urine Chloride Urine Total Protein Fluid Glucose Fluid Total Protein Vancomycin Trough Miscellaneous Test Crossmatch 06/06/18 06/06/18 06/06/18 11:15 18:00 23:58 WBC RBC Hgb Hct MCV MCHC RDW Plt Count Lymph % (Auto) [place] % (Auto) Lymph # [place] # Seg Neutrophils % Seg Neuts % (Manual) Lymphocytes % (Manual) Monocytes % (Manual) Seg Neutrophils # Seg Neutrophils # Man Lymphocytes # (Manual) Monocytes # (Manual) PT INR APTT Heparin Anti-Xa Level POC ABG pH POC ABG pCO2 POC ABG pO2 Sodium Potassium Chloride Carbon Dioxide BUN Creatinine Glucose POC Glucose 127 H 130 H 114 H Lactic Acid Calcium Phosphorus Magnesium Iron TIBC AST ALT Alkaline Phosphatase Lactate Dehydrogenase Total Creatine Kinase C-Reactive Protein Total Protein Albumin Prealbumin CA 19-9 Antigen Folate PTH Intact Urine WBC (Auto) Urine Creatinine Urine Chloride Urine Total Protein Fluid Glucose Fluid Total Protein Vancomycin Trough Miscellaneous Test Crossmatch 06/07/18 06/07/18 06/07/18 05:45 05:45 05:54 WBC 15.5 H RBC 2.60 L Hgb 7.4 L Hct 23.1 L MCV MCHC RDW 16.5 H Plt Count 506 H Lymph % (Auto) 5.3 L [place] % (Auto) Lymph # 0.8 L [place] # 1.0 H Seg Neutrophils % 86.6 H Seg Neuts % (Manual) Lymphocytes % (Manual) Monocytes % (Manual) Seg Neutrophils # 13.4 H Seg Neutrophils # Man Lymphocytes # (Manual) Monocytes # (Manual) PT INR APTT Heparin Anti-Xa Level POC ABG pH POC ABG pCO2 POC ABG pO2 Sodium Potassium Chloride 108.4 H Carbon Dioxide BUN 84 H Creatinine 3.5 H Glucose 119 H POC Glucose 114 H Lactic Acid Calcium 8.1 L Phosphorus 5.10 H Magnesium Iron TIBC AST ALT Alkaline Phosphatase Lactate Dehydrogenase Total Creatine Kinase C-Reactive Protein Total Protein Albumin Prealbumin CA 19-9 Antigen Folate PTH Intact Urine WBC (Auto) Urine Creatinine Urine Chloride Urine Total Protein Fluid Glucose Fluid Total Protein Vancomycin Trough Miscellaneous Test Crossmatch 06/07/18 06/08/18 06/08/18 12:15 05:05 05:24 WBC RBC Hgb Hct MCV MCHC RDW Plt Count Lymph % (Auto) [place] % (Auto) Lymph # [place] # Seg Neutrophils % Seg Neuts % (Manual) Lymphocytes % (Manual) Monocytes % (Manual) Seg Neutrophils # Seg Neutrophils # Man Lymphocytes # (Manual) Monocytes # (Manual) PT INR APTT Heparin Anti-Xa Level POC ABG pH POC ABG pCO2 POC ABG pO2 Sodium 148 H Potassium Chloride 112.4 H Carbon Dioxide BUN 89 H Creatinine 3.4 H Glucose 120 H POC Glucose 148 H 115 H Lactic Acid Calcium 7.9 L Phosphorus Magnesium Iron TIBC AST ALT Alkaline Phosphatase Lactate Dehydrogenase Total Creatine Kinase C-Reactive Protein Total Protein Albumin Prealbumin CA 19-9 Antigen Folate PTH Intact Urine WBC (Auto) Urine Creatinine Urine Chloride Urine Total Protein Fluid Glucose Fluid Total Protein Vancomycin Trough Miscellaneous Test Crossmatch 06/08/18 06/08/18 06/08/18 21:36 21:43 21:43 WBC RBC 2.98 L Hgb 8.8 L Hct 26.6 L MCV MCHC RDW 16.7 H Plt Count 463 H Lymph % (Auto) 7.9 L [place] % (Auto) Lymph # 0.8 L [place] # Seg Neutrophils % 84.8 H Seg Neuts % (Manual) Lymphocytes % (Manual) Monocytes % (Manual) Seg Neutrophils # 8.6 H Seg Neutrophils # Man Lymphocytes # (Manual) Monocytes # (Manual) PT INR APTT Heparin Anti-Xa Level POC ABG pH POC ABG pCO2 POC ABG pO2 Sodium Potassium Chloride Carbon Dioxide BUN Creatinine Glucose POC Glucose Lactic Acid Calcium Phosphorus Magnesium Iron TIBC AST ALT Alkaline Phosphatase Lactate Dehydrogenase 297 H Total Creatine Kinase C-Reactive Protein Total Protein Albumin Prealbumin CA 19-9 Antigen 57 H Folate PTH Intact Urine WBC (Auto) Urine Creatinine Urine Chloride Urine Total Protein Fluid Glucose Fluid Total Protein Vancomycin Trough Miscellaneous Test Crossmatch 06/09/18 06/09/18 06/09/18 00:05 05:34 05:50 WBC RBC Hgb Hct MCV MCHC RDW Plt Count Lymph % (Auto) [place] % (Auto) Lymph # [place] # Seg Neutrophils % Seg Neuts % (Manual) Lymphocytes % (Manual) Monocytes % (Manual) Seg Neutrophils # Seg Neutrophils # Man Lymphocytes # (Manual) Monocytes # (Manual) PT INR APTT Heparin Anti-Xa Level POC ABG pH POC ABG pCO2 POC ABG pO2 Sodium 153 H Potassium Chloride 117.3 H Carbon Dioxide BUN 84 H Creatinine 3.2 H Glucose 117 H POC Glucose 140 H 146 H Lactic Acid Calcium 7.9 L Phosphorus Magnesium Iron TIBC AST ALT Alkaline Phosphatase Lactate Dehydrogenase Total Creatine Kinase C-Reactive Protein Total Protein Albumin Prealbumin CA 19-9 Antigen Folate PTH Intact Urine WBC (Auto) Urine Creatinine Urine Chloride Urine Total Protein Fluid Glucose Fluid Total Protein Vancomycin Trough Miscellaneous Test Crossmatch 06/09/18 06/09/18 06/09/18 05:50 07:37 10:34 WBC RBC 2.32 L Hgb 6.8 L Hct 20.7 L MCV MCHC RDW 16.7 H Plt Count Lymph % (Auto) [place] % (Auto) Lymph # [place] # Seg Neutrophils % Seg Neuts % (Manual) Lymphocytes % (Manual) Monocytes % (Manual) Seg Neutrophils # Seg Neutrophils # Man Lymphocytes # (Manual) Monocytes # (Manual) PT INR APTT Heparin Anti-Xa Level POC ABG pH POC ABG pCO2 POC ABG pO2 Sodium 149 H Potassium Chloride 114.6 H Carbon Dioxide BUN 84 H Creatinine 3.1 H Glucose 137 H POC Glucose Lactic Acid Calcium 7.7 L Phosphorus Magnesium Iron TIBC AST ALT Alkaline Phosphatase Lactate Dehydrogenase Total Creatine Kinase C-Reactive Protein Total Protein Albumin Prealbumin CA 19-9 Antigen Folate PTH Intact Urine WBC (Auto) Urine Creatinine Urine Chloride Urine Total Protein Fluid Glucose Fluid Total Protein Vancomycin Trough Miscellaneous Test Flexitest 1 H Crossmatch 06/09/18 06/09/18 06/09/18 10:41 11:56 13:24 WBC RBC 2.43 L Hgb 7.2 L Hct 21.6 L MCV MCHC RDW 16.8 H Plt Count Lymph % (Auto) [place] % (Auto) Lymph # [place] # Seg Neutrophils % Seg Neuts % (Manual) Lymphocytes % (Manual) Monocytes % (Manual) Seg Neutrophils # Seg Neutrophils # Man Lymphocytes # (Manual) Monocytes # (Manual) PT INR APTT Heparin Anti-Xa Level POC ABG pH POC ABG pCO2 POC ABG pO2 Sodium Potassium Chloride Carbon Dioxide BUN Creatinine Glucose POC Glucose 141 H Lactic Acid Calcium Phosphorus Magnesium Iron TIBC AST ALT Alkaline Phosphatase Lactate Dehydrogenase Total Creatine Kinase C-Reactive Protein Total Protein Albumin Prealbumin CA 19-9 Antigen Folate PTH Intact Urine WBC (Auto) Urine Creatinine Urine Chloride Urine Total Protein Fluid Glucose Fluid Total Protein Vancomycin Trough Miscellaneous Test Crossmatch See Detail 06/09/18 06/09/18 06/10/18 18:18 23:13 05:26 WBC RBC Hgb Hct MCV MCHC RDW Plt Count Lymph % (Auto) [place] % (Auto) Lymph # [place] # Seg Neutrophils % Seg Neuts % (Manual) Lymphocytes % (Manual) Monocytes % (Manual) Seg Neutrophils # Seg Neutrophils # Man Lymphocytes # (Manual) Monocytes # (Manual) PT INR APTT Heparin Anti-Xa Level POC ABG pH POC ABG pCO2 POC ABG pO2 Sodium 148 H Potassium Chloride 114.7 H Carbon Dioxide 21 L BUN 79 H Creatinine 3.2 H Glucose 121 H POC Glucose 156 H 163 H Lactic Acid Calcium 7.8 L Phosphorus Magnesium 1.60 L Iron TIBC AST ALT Alkaline Phosphatase Lactate Dehydrogenase Total Creatine Kinase C-Reactive Protein Total Protein Albumin Prealbumin CA 19-9 Antigen Folate PTH Intact Urine WBC (Auto) Urine Creatinine Urine Chloride Urine Total Protein Fluid Glucose Fluid Total Protein Vancomycin Trough Miscellaneous Test Crossmatch 06/10/18 06/10/18 06/10/18 05:26 05:31 17:15 WBC 11.1 H RBC 3.07 L Hgb 9.1 L Hct 27.6 L D MCV MCHC RDW 17.4 H Plt Count Lymph % (Auto) [place] % (Auto) Lymph # [place] # Seg Neutrophils % Seg Neuts % (Manual) Lymphocytes % (Manual) Monocytes % (Manual) Seg Neutrophils # Seg Neutrophils # Man Lymphocytes # (Manual) Monocytes # (Manual) PT INR APTT Heparin Anti-Xa Level POC ABG pH POC ABG pCO2 POC ABG pO2 Sodium Potassium Chloride Carbon Dioxide BUN Creatinine Glucose POC Glucose 128 H Lactic Acid Calcium Phosphorus Magnesium Iron TIBC AST ALT Alkaline Phosphatase Lactate Dehydrogenase Total Creatine Kinase C-Reactive Protein 3.60 H Total Protein Albumin Prealbumin CA 19-9 Antigen Folate PTH Intact Urine WBC (Auto) Urine Creatinine Urine Chloride Urine Total Protein Fluid Glucose Fluid Total Protein Vancomycin Trough Miscellaneous Test Crossmatch 06/11/18 06/11/18 06/11/18 01:13 05:41 05:41 WBC 14.6 H RBC 3.40 L Hgb 9.8 L Hct 30.7 L MCV MCHC RDW 18.1 H Plt Count Lymph % (Auto) [place] % (Auto) Lymph # [place] # Seg Neutrophils % Seg Neuts % (Manual) Lymphocytes % (Manual) Monocytes % (Manual) Seg Neutrophils # Seg Neutrophils # Man Lymphocytes # (Manual) Monocytes # (Manual) PT INR APTT Heparin Anti-Xa Level POC ABG pH POC ABG pCO2 POC ABG pO2 Sodium Potassium Chloride 110.8 H Carbon Dioxide 18 L BUN 77 H Creatinine 3.0 H Glucose 116 H POC Glucose 126 H Lactic Acid Calcium 7.9 L Phosphorus Magnesium Iron TIBC AST ALT Alkaline Phosphatase Lactate Dehydrogenase Total Creatine Kinase C-Reactive Protein Total Protein Albumin Prealbumin CA 19-9 Antigen Folate PTH Intact Urine WBC (Auto) Urine Creatinine Urine Chloride Urine Total Protein Fluid Glucose Fluid Total Protein Vancomycin Trough Miscellaneous Test Crossmatch 06/11/18 06/11/18 06/11/18 06:20 07:41 07:41 WBC RBC Hgb Hct MCV MCHC RDW Plt Count Lymph % (Auto) [place] % (Auto) Lymph # [place] # Seg Neutrophils % Seg Neuts % (Manual) Lymphocytes % (Manual) Monocytes % (Manual) Seg Neutrophils # Seg Neutrophils # Man Lymphocytes # (Manual) Monocytes # (Manual) PT INR APTT Heparin Anti-Xa Level POC ABG pH POC ABG pCO2 POC ABG pO2 Sodium Potassium Chloride Carbon Dioxide BUN Creatinine Glucose POC Glucose 136 H Lactic Acid Calcium Phosphorus Magnesium Iron TIBC AST ALT Alkaline Phosphatase Lactate Dehydrogenase Total Creatine Kinase C-Reactive Protein Total Protein Albumin Prealbumin CA 19-9 Antigen Folate PTH Intact Urine WBC (Auto) 10.0 H Urine Creatinine 41.2 H Urine Chloride 49.2 L Urine Total Protein 142 H Fluid Glucose Fluid Total Protein Vancomycin Trough Miscellaneous Test Crossmatch 06/11/18 06/12/18 06/12/18 18:35 00:34 04:12 WBC RBC 3.18 L Hgb 9.5 L Hct 28.7 L MCV MCHC RDW 18.5 H Plt Count Lymph % (Auto) 8.1 L [place] % (Auto) Lymph # 0.9 L [place] # Seg Neutrophils % 84.6 H Seg Neuts % (Manual) Lymphocytes % (Manual) Monocytes % (Manual) Seg Neutrophils # 9.1 H Seg Neutrophils # Man Lymphocytes # (Manual) Monocytes # (Manual) PT INR APTT Heparin Anti-Xa Level POC ABG pH POC ABG pCO2 POC ABG pO2 Sodium Potassium Chloride Carbon Dioxide BUN Creatinine Glucose POC Glucose 125 H 129 H Lactic Acid Calcium Phosphorus Magnesium Iron TIBC AST ALT Alkaline Phosphatase Lactate Dehydrogenase Total Creatine Kinase C-Reactive Protein Total Protein Albumin Prealbumin CA 19-9 Antigen Folate PTH Intact Urine WBC (Auto) Urine Creatinine Urine Chloride Urine Total Protein Fluid Glucose Fluid Total Protein Vancomycin Trough Miscellaneous Test Crossmatch 06/12/18 06/12/18 06/12/18 04:12 06:30 11:43 WBC RBC Hgb Hct MCV MCHC RDW Plt Count Lymph % (Auto) [place] % (Auto) Lymph # [place] # Seg Neutrophils % Seg Neuts % (Manual) Lymphocytes % (Manual) Monocytes % (Manual) Seg Neutrophils # Seg Neutrophils # Man Lymphocytes # (Manual) Monocytes # (Manual) PT INR APTT Heparin Anti-Xa Level POC ABG pH POC ABG pCO2 POC ABG pO2 Sodium Potassium Chloride 108.5 H Carbon Dioxide 21 L BUN 72 H Creatinine 3.0 H Glucose 122 H POC Glucose 129 H 126 H Lactic Acid Calcium 7.8 L Phosphorus Magnesium Iron TIBC AST 45 H ALT Alkaline Phosphatase 200 H Lactate Dehydrogenase Total Creatine Kinase 34 L C-Reactive Protein Total Protein Albumin 1.7 L Prealbumin CA 19-9 Antigen Folate PTH Intact Urine WBC (Auto) Urine Creatinine Urine Chloride Urine Total Protein Fluid Glucose Fluid Total Protein Vancomycin Trough Miscellaneous Test Crossmatch 06/12/18 06/12/18 06/13/18 16:00 23:56 03:44 WBC RBC Hgb Hct MCV MCHC RDW Plt Count Lymph % (Auto) [place] % (Auto) Lymph # [place] # Seg Neutrophils % Seg Neuts % (Manual) Lymphocytes % (Manual) Monocytes % (Manual) Seg Neutrophils # Seg Neutrophils # Man Lymphocytes # (Manual) Monocytes # (Manual) PT INR APTT Heparin Anti-Xa Level POC ABG pH POC ABG pCO2 POC ABG pO2 Sodium Potassium Chloride Carbon Dioxide BUN Creatinine Glucose POC Glucose 123 H 128 H 121 H Lactic Acid Calcium Phosphorus Magnesium Iron TIBC AST ALT Alkaline Phosphatase Lactate Dehydrogenase Total Creatine Kinase C-Reactive Protein Total Protein Albumin Prealbumin CA 19-9 Antigen Folate PTH Intact Urine WBC (Auto) Urine Creatinine Urine Chloride Urine Total Protein Fluid Glucose Fluid Total Protein Vancomycin Trough Miscellaneous Test Crossmatch 06/13/18 06/13/18 06/14/18 05:59 11:29 01:08 WBC RBC Hgb Hct MCV MCHC RDW Plt Count Lymph % (Auto) [place] % (Auto) Lymph # [place] # Seg Neutrophils % Seg Neuts % (Manual) Lymphocytes % (Manual) Monocytes % (Manual) Seg Neutrophils # Seg Neutrophils # Man Lymphocytes # (Manual) Monocytes # (Manual) PT INR APTT Heparin Anti-Xa Level POC ABG pH POC ABG pCO2 POC ABG pO2 Sodium 134 L Potassium Chloride Carbon Dioxide 20 L BUN 69 H Creatinine 2.9 H Glucose 113 H POC Glucose 124 H 128 H Lactic Acid Calcium 7.8 L Phosphorus Magnesium Iron TIBC AST ALT Alkaline Phosphatase Lactate Dehydrogenase Total Creatine Kinase C-Reactive Protein Total Protein Albumin Prealbumin CA 19-9 Antigen Folate PTH Intact Urine WBC (Auto) Urine Creatinine Urine Chloride Urine Total Protein Fluid Glucose Fluid Total Protein Vancomycin Trough Miscellaneous Test Crossmatch 06/14/18 06/14/18 06/14/18 06:42 06:42 09:50 WBC 11.3 H RBC 3.02 L Hgb 8.8 L Hct 27.3 L MCV MCHC RDW 18.6 H Plt Count Lymph % (Auto) [place] % (Auto) Lymph # [place] # Seg Neutrophils % Seg Neuts % (Manual) Lymphocytes % (Manual) Monocytes % (Manual) Seg Neutrophils # Seg Neutrophils # Man Lymphocytes # (Manual) Monocytes # (Manual) PT 16.3 H INR 1.24 H APTT Heparin Anti-Xa Level POC ABG pH POC ABG pCO2 POC ABG pO2 Sodium 132 L Potassium Chloride Carbon Dioxide 19 L BUN 71 H Creatinine 3.1 H Glucose POC Glucose Lactic Acid Calcium 7.8 L Phosphorus Magnesium Iron TIBC AST ALT Alkaline Phosphatase Lactate Dehydrogenase Total Creatine Kinase C-Reactive Protein Total Protein Albumin Prealbumin CA 19-9 Antigen Folate PTH Intact Urine WBC (Auto) Urine Creatinine Urine Chloride Urine Total Protein Fluid Glucose Fluid Total Protein Vancomycin Trough Miscellaneous Test Crossmatch 06/14/18 06/14/18 06/15/18 12:31 17:04 01:18 WBC RBC Hgb Hct MCV MCHC RDW Plt Count Lymph % (Auto) [place] % (Auto) Lymph # [place] # Seg Neutrophils % Seg Neuts % (Manual) Lymphocytes % (Manual) Monocytes % (Manual) Seg Neutrophils # Seg Neutrophils # Man Lymphocytes # (Manual) Monocytes # (Manual) PT INR APTT Heparin Anti-Xa Level POC ABG pH POC ABG pCO2 POC ABG pO2 Sodium Potassium Chloride Carbon Dioxide BUN Creatinine Glucose POC Glucose 125 H 109 H 124 H Lactic Acid Calcium Phosphorus Magnesium Iron TIBC AST ALT Alkaline Phosphatase Lactate Dehydrogenase Total Creatine Kinase C-Reactive Protein Total Protein Albumin Prealbumin CA 19-9 Antigen Folate PTH Intact Urine WBC (Auto) Urine Creatinine Urine Chloride Urine Total Protein Fluid Glucose Fluid Total Protein Vancomycin Trough Miscellaneous Test Crossmatch 06/15/18 06/15/18 06/15/18 05:27 06:34 11:42 WBC RBC Hgb Hct MCV MCHC RDW Plt Count Lymph % (Auto) [place] % (Auto) Lymph # [place] # Seg Neutrophils % Seg Neuts % (Manual) Lymphocytes % (Manual) Monocytes % (Manual) Seg Neutrophils # Seg Neutrophils # Man Lymphocytes # (Manual) Monocytes # (Manual) PT INR APTT Heparin Anti-Xa Level POC ABG pH POC ABG pCO2 POC ABG pO2 Sodium 134 L Potassium Chloride Carbon Dioxide 17 L BUN 77 H Creatinine 3.2 H Glucose 110 H POC Glucose 116 H 131 H Lactic Acid Calcium 8.1 L Phosphorus 6.20 H D Magnesium Iron TIBC AST ALT Alkaline Phosphatase Lactate Dehydrogenase Total Creatine Kinase C-Reactive Protein Total Protein Albumin Prealbumin CA 19-9 Antigen Folate PTH Intact Urine WBC (Auto) Urine Creatinine Urine Chloride Urine Total Protein Fluid Glucose Fluid Total Protein Vancomycin Trough Miscellaneous Test Crossmatch 06/16/18 06/16/18 06/16/18 00:57 05:10 06:07 WBC RBC Hgb Hct MCV MCHC RDW Plt Count Lymph % (Auto) [place] % (Auto) Lymph # [place] # Seg Neutrophils % Seg Neuts % (Manual) Lymphocytes % (Manual) Monocytes % (Manual) Seg Neutrophils # Seg Neutrophils # Man Lymphocytes # (Manual) Monocytes # (Manual) PT INR APTT Heparin Anti-Xa Level POC ABG pH POC ABG pCO2 POC ABG pO2 Sodium 132 L Potassium Chloride Carbon Dioxide 19 L BUN 83 H Creatinine 3.2 H Glucose 113 H POC Glucose 137 H 109 H Lactic Acid Calcium 7.8 L Phosphorus 6.10 H Magnesium Iron TIBC AST ALT Alkaline Phosphatase Lactate Dehydrogenase Total Creatine Kinase C-Reactive Protein Total Protein Albumin Prealbumin CA 19-9 Antigen Folate PTH Intact Urine WBC (Auto) Urine Creatinine Urine Chloride Urine Total Protein Fluid Glucose Fluid Total Protein Vancomycin Trough Miscellaneous Test Crossmatch 06/16/18 06/16/18 06/17/18 11:51 15:46 00:02 WBC RBC Hgb Hct MCV MCHC RDW Plt Count Lymph % (Auto) [place] % (Auto) Lymph # [place] # Seg Neutrophils % Seg Neuts % (Manual) Lymphocytes % (Manual) Monocytes % (Manual) Seg Neutrophils # Seg Neutrophils # Man Lymphocytes # (Manual) Monocytes # (Manual) PT INR APTT Heparin Anti-Xa Level POC ABG pH POC ABG pCO2 POC ABG pO2 Sodium Potassium Chloride Carbon Dioxide BUN Creatinine Glucose POC Glucose 126 H 127 H 107 H Lactic Acid Calcium Phosphorus Magnesium Iron TIBC AST ALT Alkaline Phosphatase Lactate Dehydrogenase Total Creatine Kinase C-Reactive Protein Total Protein Albumin Prealbumin CA 19-9 Antigen Folate PTH Intact Urine WBC (Auto) Urine Creatinine Urine Chloride Urine Total Protein Fluid Glucose Fluid Total Protein Vancomycin Trough Miscellaneous Test Crossmatch 06/17/18 06/17/18 06/17/18 05:52 11:46 16:58 WBC RBC Hgb Hct MCV MCHC RDW Plt Count Lymph % (Auto) [place] % (Auto) Lymph # [place] # Seg Neutrophils % Seg Neuts % (Manual) Lymphocytes % (Manual) Monocytes % (Manual) Seg Neutrophils # Seg Neutrophils # Man Lymphocytes # (Manual) Monocytes # (Manual) PT INR APTT Heparin Anti-Xa Level POC ABG pH POC ABG pCO2 POC ABG pO2 Sodium 133 L Potassium Chloride Carbon Dioxide 17 L BUN 87 H Creatinine 3.2 H Glucose POC Glucose 129 H 140 H Lactic Acid Calcium 8.1 L Phosphorus 6.50 H Magnesium Iron TIBC AST ALT Alkaline Phosphatase Lactate Dehydrogenase Total Creatine Kinase C-Reactive Protein Total Protein Albumin Prealbumin 0.130 L CA 19-9 Antigen Folate PTH Intact Urine WBC (Auto) Urine Creatinine Urine Chloride Urine Total Protein Fluid Glucose Fluid Total Protein Vancomycin Trough Miscellaneous Test Crossmatch 06/18/18 06/18/18 06/18/18 04:04 04:04 14:15 WBC RBC 3.00 L Hgb 8.9 L Hct 26.5 L MCV MCHC RDW 17.8 H Plt Count 494 H Lymph % (Auto) 7.9 L [place] % (Auto) 9.3 H Lymph # 0.8 L [place] # 1.0 H Seg Neutrophils % 81.2 H Seg Neuts % (Manual) Lymphocytes % (Manual) Monocytes % (Manual) Seg Neutrophils # 8.6 H Seg Neutrophils # Man Lymphocytes # (Manual) Monocytes # (Manual) PT INR APTT Heparin Anti-Xa Level POC ABG pH POC ABG pCO2 POC ABG pO2 Sodium 128 L Potassium Chloride Carbon Dioxide 18 L BUN 88 H Creatinine 3.1 H Glucose 129 H POC Glucose 143 H Lactic Acid Calcium 7.8 L Phosphorus 6.20 H Magnesium Iron TIBC AST ALT Alkaline Phosphatase Lactate Dehydrogenase Total Creatine Kinase C-Reactive Protein Total Protein Albumin Prealbumin CA 19-9 Antigen Folate PTH Intact Urine WBC (Auto) Urine Creatinine Urine Chloride Urine Total Protein Fluid Glucose Fluid Total Protein Vancomycin Trough Miscellaneous Test Crossmatch 06/18/18 06/19/18 06/19/18 17:54 01:45 06:20 WBC RBC Hgb Hct MCV MCHC RDW Plt Count Lymph % (Auto) [place] % (Auto) Lymph # [place] # Seg Neutrophils % Seg Neuts % (Manual) Lymphocytes % (Manual) Monocytes % (Manual) Seg Neutrophils # Seg Neutrophils # Man Lymphocytes # (Manual) Monocytes # (Manual) PT INR APTT Heparin Anti-Xa Level POC ABG pH POC ABG pCO2 POC ABG pO2 Sodium Potassium Chloride 93.9 L Carbon Dioxide BUN 78 H Creatinine 2.8 H Glucose POC Glucose 138 H 141 H Lactic Acid Calcium 7.1 L Phosphorus 6.40 H Magnesium Iron TIBC AST ALT Alkaline Phosphatase Lactate Dehydrogenase Total Creatine Kinase C-Reactive Protein Total Protein Albumin Prealbumin CA 19-9 Antigen Folate PTH Intact Urine WBC (Auto) Urine Creatinine Urine Chloride Urine Total Protein Fluid Glucose Fluid Total Protein Vancomycin Trough Miscellaneous Test Crossmatch 06/19/18 06/19/18 06/19/18 06:49 07:59 16:32 WBC RBC Hgb Hct MCV MCHC RDW Plt Count Lymph % (Auto) [place] % (Auto) Lymph # [place] # Seg Neutrophils % Seg Neuts % (Manual) Lymphocytes % (Manual) Monocytes % (Manual) Seg Neutrophils # Seg Neutrophils # Man Lymphocytes # (Manual) Monocytes # (Manual) PT INR APTT Heparin Anti-Xa Level POC ABG pH POC ABG pCO2 POC ABG pO2 Sodium Potassium Chloride Carbon Dioxide BUN 80 H Creatinine 2.9 H Glucose 123 H POC Glucose 130 H 134 H Lactic Acid Calcium 7.7 L Phosphorus Magnesium Iron TIBC AST ALT Alkaline Phosphatase Lactate Dehydrogenase Total Creatine Kinase C-Reactive Protein Total Protein Albumin Prealbumin CA 19-9 Antigen Folate PTH Intact Urine WBC (Auto) Urine Creatinine Urine Chloride Urine Total Protein Fluid Glucose Fluid Total Protein Vancomycin Trough Miscellaneous Test Crossmatch 06/20/18 06/20/18 06/20/18 00:11 05:55 05:55 WBC RBC 2.73 L Hgb 8.0 L Hct 24.2 L MCV MCHC RDW 17.4 H Plt Count 512 H Lymph % (Auto) 12.3 L [place] % (Auto) 11.3 H Lymph # 1.1 L [place] # 1.0 H Seg Neutrophils % 74.8 H Seg Neuts % (Manual) Lymphocytes % (Manual) Monocytes % (Manual) Seg Neutrophils # Seg Neutrophils # Man Lymphocytes # (Manual) Monocytes # (Manual) PT INR APTT Heparin Anti-Xa Level POC ABG pH POC ABG pCO2 POC ABG pO2 Sodium Potassium Chloride Carbon Dioxide 32 H BUN 70 H Creatinine 2.5 H Glucose 105 H POC Glucose 131 H Lactic Acid Calcium 8.0 L Phosphorus Magnesium Iron TIBC AST ALT Alkaline Phosphatase Lactate Dehydrogenase Total Creatine Kinase C-Reactive Protein Total Protein Albumin Prealbumin CA 19-9 Antigen Folate PTH Intact Urine WBC (Auto) Urine Creatinine Urine Chloride Urine Total Protein Fluid Glucose Fluid Total Protein Vancomycin Trough Miscellaneous Test Crossmatch 06/20/18 06/20/18 06/20/18 05:55 12:10 16:01 WBC RBC Hgb Hct MCV MCHC RDW Plt Count Lymph % (Auto) [place] % (Auto) Lymph # [place] # Seg Neutrophils % Seg Neuts % (Manual) Lymphocytes % (Manual) Monocytes % (Manual) Seg Neutrophils # Seg Neutrophils # Man Lymphocytes # (Manual) Monocytes # (Manual) PT INR APTT Heparin Anti-Xa Level POC ABG pH POC ABG pCO2 POC ABG pO2 Sodium Potassium Chloride Carbon Dioxide BUN Creatinine Glucose POC Glucose 112 H 127 H 145 H Lactic Acid Calcium Phosphorus Magnesium Iron TIBC AST ALT Alkaline Phosphatase Lactate Dehydrogenase Total Creatine Kinase C-Reactive Protein Total Protein Albumin Prealbumin CA 19-9 Antigen Folate PTH Intact Urine WBC (Auto) Urine Creatinine Urine Chloride Urine Total Protein Fluid Glucose Fluid Total Protein Vancomycin Trough Miscellaneous Test Crossmatch 06/20/18 06/21/18 06/21/18 23:54 05:50 05:50 WBC RBC 2.57 L Hgb 7.7 L Hct 26.6 L MCV 104 H MCHC 29 L RDW 19.1 H Plt Count 521 H Lymph % (Auto) 10.0 L [place] % (Auto) 7.4 H Lymph # 1.0 L [place] # Seg Neutrophils % 81.3 H Seg Neuts % (Manual) Lymphocytes % (Manual) Monocytes % (Manual) Seg Neutrophils # 7.9 H Seg Neutrophils # Man Lymphocytes # (Manual) Monocytes # (Manual) PT INR APTT Heparin Anti-Xa Level POC ABG pH POC ABG pCO2 POC ABG pO2 Sodium Potassium 5.8 H D Chloride 90.3 L Carbon Dioxide 37 H BUN 57 H Creatinine 1.9 H Glucose POC Glucose 154 H Lactic Acid Calcium 7.3 L Phosphorus Magnesium Iron TIBC AST 50 H ALT Alkaline Phosphatase 190 H Lactate Dehydrogenase Total Creatine Kinase C-Reactive Protein Total Protein Albumin 1.8 L Prealbumin CA 19-9 Antigen Folate PTH Intact Urine WBC (Auto) Urine Creatinine Urine Chloride Urine Total Protein Fluid Glucose Fluid Total Protein Vancomycin Trough Miscellaneous Test Crossmatch 06/21/18 06/21/18 06/21/18 06:57 13:37 17:00 WBC RBC Hgb Hct MCV MCHC RDW Plt Count Lymph % (Auto) [place] % (Auto) Lymph # [place] # Seg Neutrophils % Seg Neuts % (Manual) Lymphocytes % (Manual) Monocytes % (Manual) Seg Neutrophils # Seg Neutrophils # Man Lymphocytes # (Manual) Monocytes # (Manual) PT INR APTT Heparin Anti-Xa Level POC ABG pH POC ABG pCO2 POC ABG pO2 Sodium Potassium Chloride Carbon Dioxide BUN Creatinine Glucose 111 H POC Glucose 141 H 148 H Lactic Acid Calcium Phosphorus Magnesium Iron TIBC AST ALT Alkaline Phosphatase Lactate Dehydrogenase Total Creatine Kinase C-Reactive Protein Total Protein Albumin Prealbumin CA 19-9 Antigen Folate PTH Intact Urine WBC (Auto) Urine Creatinine Urine Chloride Urine Total Protein Fluid Glucose Fluid Total Protein Vancomycin Trough Miscellaneous Test Crossmatch 06/21/18 06/21/18 06/22/18 17:27 22:01 06:02 WBC RBC Hgb Hct MCV MCHC RDW Plt Count Lymph % (Auto) [place] % (Auto) Lymph # [place] # Seg Neutrophils % Seg Neuts % (Manual) Lymphocytes % (Manual) Monocytes % (Manual) Seg Neutrophils # Seg Neutrophils # Man Lymphocytes # (Manual) Monocytes # (Manual) PT INR APTT Heparin Anti-Xa Level POC ABG pH POC ABG pCO2 POC ABG pO2 Sodium Potassium 3.2 L Chloride Carbon Dioxide 39 H BUN 53 H Creatinine 1.9 H Glucose 1348 H* POC Glucose 130 H 122 H Lactic Acid Calcium 7.5 L Phosphorus Magnesium Iron TIBC AST ALT Alkaline Phosphatase Lactate Dehydrogenase Total Creatine Kinase C-Reactive Protein Total Protein Albumin Prealbumin CA 19-9 Antigen Folate PTH Intact Urine WBC (Auto) Urine Creatinine Urine Chloride Urine Total Protein Fluid Glucose Fluid Total Protein Vancomycin Trough Miscellaneous Test Crossmatch 06/22/18 06/22/18 06/22/18 06:16 07:26 07:48 WBC RBC Hgb Hct MCV MCHC RDW Plt Count Lymph % (Auto) [place] % (Auto) Lymph # [place] # Seg Neutrophils % Seg Neuts % (Manual) Lymphocytes % (Manual) Monocytes % (Manual) Seg Neutrophils # Seg Neutrophils # Man Lymphocytes # (Manual) Monocytes # (Manual) PT INR APTT Heparin Anti-Xa Level POC ABG pH POC ABG pCO2 POC ABG pO2 Sodium Potassium Chloride Carbon Dioxide 37 H BUN 57 H Creatinine 1.9 H Glucose 147 H POC Glucose 148 H 153 H Lactic Acid Calcium 8.3 L Phosphorus Magnesium Iron TIBC AST ALT Alkaline Phosphatase Lactate Dehydrogenase Total Creatine Kinase C-Reactive Protein Total Protein Albumin Prealbumin CA 19-9 Antigen Folate PTH Intact Urine WBC (Auto) Urine Creatinine Urine Chloride Urine Total Protein Fluid Glucose Fluid Total Protein Vancomycin Trough Miscellaneous Test Crossmatch 06/22/18 06/22/18 06/22/18 11:26 16:26 23:57 WBC RBC Hgb Hct MCV MCHC RDW Plt Count Lymph % (Auto) [place] % (Auto) Lymph # [place] # Seg Neutrophils % Seg Neuts % (Manual) Lymphocytes % (Manual) Monocytes % (Manual) Seg Neutrophils # Seg Neutrophils # Man Lymphocytes # (Manual) Monocytes # (Manual) PT INR APTT Heparin Anti-Xa Level POC ABG pH POC ABG pCO2 POC ABG pO2 Sodium Potassium Chloride Carbon Dioxide BUN Creatinine Glucose POC Glucose 121 H 122 H 180 H Lactic Acid Calcium Phosphorus Magnesium Iron TIBC AST ALT Alkaline Phosphatase Lactate Dehydrogenase Total Creatine Kinase C-Reactive Protein Total Protein Albumin Prealbumin CA 19-9 Antigen Folate PTH Intact Urine WBC (Auto) Urine Creatinine Urine Chloride Urine Total Protein Fluid Glucose Fluid Total Protein Vancomycin Trough Miscellaneous Test Crossmatch 06/22/18 06/23/18 06/23/18 23:57 00:30 01:40 WBC RBC Hgb Hct MCV MCHC RDW Plt Count Lymph % (Auto) [place] % (Auto) Lymph # [place] # Seg Neutrophils % Seg Neuts % (Manual) Lymphocytes % (Manual) Monocytes % (Manual) Seg Neutrophils # Seg Neutrophils # Man Lymphocytes # (Manual) Monocytes # (Manual) PT INR APTT Heparin Anti-Xa Level POC ABG pH 7.195 L 7.235 L POC ABG pCO2 105.2 H 95.7 H POC ABG pO2 Sodium Potassium Chloride Carbon Dioxide BUN Creatinine Glucose POC Glucose Lactic Acid Calcium Phosphorus Magnesium Iron TIBC AST ALT Alkaline Phosphatase Lactate Dehydrogenase Total Creatine Kinase C-Reactive Protein Total Protein Albumin Prealbumin CA 19-9 Antigen Folate PTH Intact Urine WBC (Auto) Urine Creatinine 99.7 H Urine Chloride 10.0 L Urine Total Protein 272 H Fluid Glucose Fluid Total Protein Vancomycin Trough Miscellaneous Test Crossmatch 06/23/18 06/23/18 06/23/18 05:58 07:20 08:31 WBC 16.0 H RBC 2.35 L Hgb 6.7 L Hct 22.3 L MCV 95 H MCHC 30 L RDW 18.5 H Plt Count 512 H Lymph % (Auto) [place] % (Auto) Lymph # [place] # Seg Neutrophils % Seg Neuts % (Manual) Lymphocytes % (Manual) Monocytes % (Manual) Seg Neutrophils # Seg Neutrophils # Man Lymphocytes # (Manual) Monocytes # (Manual) PT INR APTT Heparin Anti-Xa Level POC ABG pH POC ABG pCO2 POC ABG pO2 Sodium Potassium Chloride Carbon Dioxide BUN Creatinine Glucose POC Glucose 116 H 123 H Lactic Acid Calcium Phosphorus Magnesium Iron TIBC AST ALT Alkaline Phosphatase Lactate Dehydrogenase Total Creatine Kinase C-Reactive Protein Total Protein Albumin Prealbumin CA 19-9 Antigen Folate PTH Intact Urine WBC (Auto) Urine Creatinine Urine Chloride Urine Total Protein Fluid Glucose Fluid Total Protein Vancomycin Trough Miscellaneous Test Crossmatch 06/23/18 06/23/18 06/23/18 08:31 08:34 08:34 WBC RBC Hgb Hct MCV MCHC RDW Plt Count 485 H Lymph % (Auto) [place] % (Auto) Lymph # [place] # Seg Neutrophils % Seg Neuts % (Manual) Lymphocytes % (Manual) Monocytes % (Manual) Seg Neutrophils # Seg Neutrophils # Man Lymphocytes # (Manual) Monocytes # (Manual) PT 15.2 H INR 1.15 H APTT 41.9 H Heparin Anti-Xa Level POC ABG pH POC ABG pCO2 POC ABG pO2 Sodium 148 H Potassium Chloride Carbon Dioxide BUN 59 H Creatinine 2.2 H Glucose 106 H POC Glucose Lactic Acid Calcium 8.2 L Phosphorus 6.60 H Magnesium Iron TIBC AST 46 H ALT Alkaline Phosphatase 188 H Lactate Dehydrogenase Total Creatine Kinase C-Reactive Protein Total Protein Albumin 1.6 L Prealbumin CA 19-9 Antigen Folate PTH Intact Urine WBC (Auto) Urine Creatinine Urine Chloride Urine Total Protein Fluid Glucose Fluid Total Protein Vancomycin Trough Miscellaneous Test Crossmatch 06/23/18 06/23/18 06/23/18 09:29 09:40 09:43 WBC RBC Hgb Hct MCV MCHC RDW Plt Count Lymph % (Auto) [place] % (Auto) Lymph # [place] # Seg Neutrophils % Seg Neuts % (Manual) Lymphocytes % (Manual) Monocytes % (Manual) Seg Neutrophils # Seg Neutrophils # Man Lymphocytes # (Manual) Monocytes # (Manual) PT INR APTT Heparin Anti-Xa Level POC ABG pH 7.521 H POC ABG pCO2 53.6 H 48.4 H POC ABG pO2 37 L 181 H Sodium Potassium Chloride Carbon Dioxide BUN Creatinine Glucose POC Glucose Lactic Acid Calcium Phosphorus Magnesium Iron TIBC AST ALT Alkaline Phosphatase Lactate Dehydrogenase Total Creatine Kinase C-Reactive Protein Total Protein Albumin Prealbumin CA 19-9 Antigen Folate PTH Intact Urine WBC (Auto) Urine Creatinine Urine Chloride Urine Total Protein Fluid Glucose Fluid Total Protein Vancomycin Trough Miscellaneous Test Crossmatch See Detail 06/23/18 06/23/18 06/23/18 17:03 17:03 18:33 WBC 22.2 H RBC 2.85 L Hgb 8.4 L Hct 25.6 L MCV MCHC RDW 17.6 H Plt Count 515 H Lymph % (Auto) [place] % (Auto) Lymph # [place] # Seg Neutrophils % Seg Neuts % (Manual) Lymphocytes % (Manual) Monocytes % (Manual) Seg Neutrophils # Seg Neutrophils # Man Lymphocytes # (Manual) Monocytes # (Manual) PT INR APTT Heparin Anti-Xa Level 0.13 L POC ABG pH POC ABG pCO2 POC ABG pO2 Sodium Potassium Chloride Carbon Dioxide BUN Creatinine Glucose POC Glucose < 40 L Lactic Acid Calcium Phosphorus Magnesium Iron TIBC AST ALT Alkaline Phosphatase Lactate Dehydrogenase Total Creatine Kinase C-Reactive Protein Total Protein Albumin Prealbumin CA 19-9 Antigen Folate PTH Intact Urine WBC (Auto) Urine Creatinine Urine Chloride Urine Total Protein Fluid Glucose Fluid Total Protein Vancomycin Trough Miscellaneous Test Crossmatch 06/23/18 06/23/18 06/24/18 23:53 Unknown 00:30 WBC RBC Hgb Hct MCV MCHC RDW Plt Count Lymph % (Auto) [place] % (Auto) Lymph # [place] # Seg Neutrophils % Seg Neuts % (Manual) Lymphocytes % (Manual) Monocytes % (Manual) Seg Neutrophils # Seg Neutrophils # Man Lymphocytes # (Manual) Monocytes # (Manual) PT INR APTT Heparin Anti-Xa Level POC ABG pH POC ABG pCO2 POC ABG pO2 Sodium 148 H Potassium Chloride Carbon Dioxide 36 H BUN 57 H Creatinine 1.9 H Glucose POC Glucose 140 H Lactic Acid Calcium 8.3 L Phosphorus Magnesium Iron TIBC AST ALT Alkaline Phosphatase Lactate Dehydrogenase Total Creatine Kinase C-Reactive Protein Total Protein Albumin Prealbumin CA 19-9 Antigen Folate PTH Intact Urine WBC (Auto) 8.0 H Urine Creatinine Urine Chloride Urine Total Protein Fluid Glucose Fluid Total Protein Vancomycin Trough Miscellaneous Test Crossmatch 06/24/18 06/24/18 06/24/18 00:40 04:30 04:30 WBC 26.9 H RBC 2.79 L Hgb 8.1 L Hct 25.0 L MCV MCHC RDW 17.5 H Plt Count 487 H Lymph % (Auto) [place] % (Auto) Lymph # [place] # Seg Neutrophils % Seg Neuts % (Manual) Lymphocytes % (Manual) 6.0 L Monocytes % (Manual) 8.0 H Seg Neutrophils # Seg Neutrophils # Man 16.9 H Lymphocytes # (Manual) Monocytes # (Manual) 2.2 H PT INR APTT Heparin Anti-Xa Level 0.13 L POC ABG pH POC ABG pCO2 POC ABG pO2 Sodium 151 H Potassium Chloride Carbon Dioxide 36 H D BUN 74 H Creatinine 2.9 H Glucose 126 H POC Glucose Lactic Acid Calcium 8.2 L Phosphorus Magnesium Iron TIBC AST ALT Alkaline Phosphatase Lactate Dehydrogenase Total Creatine Kinase C-Reactive Protein Total Protein Albumin Prealbumin CA 19-9 Antigen Folate PTH Intact Urine WBC (Auto) Urine Creatinine Urine Chloride Urine Total Protein Fluid Glucose Fluid Total Protein Vancomycin Trough Miscellaneous Test Crossmatch 06/24/18 06/24/18 06/24/18 04:33 06:41 08:00 WBC RBC Hgb Hct MCV MCHC RDW Plt Count Lymph % (Auto) [place] % (Auto) Lymph # [place] # Seg Neutrophils % Seg Neuts % (Manual) Lymphocytes % (Manual) Monocytes % (Manual) Seg Neutrophils # Seg Neutrophils # Man Lymphocytes # (Manual) Monocytes # (Manual) PT INR APTT Heparin Anti-Xa Level 0.21 L POC ABG pH 7.517 H POC ABG pCO2 50.9 H POC ABG pO2 170 H Sodium Potassium Chloride Carbon Dioxide BUN Creatinine Glucose POC Glucose 140 H Lactic Acid Calcium Phosphorus Magnesium Iron TIBC AST ALT Alkaline Phosphatase Lactate Dehydrogenase Total Creatine Kinase C-Reactive Protein Total Protein Albumin Prealbumin CA 19-9 Antigen Folate PTH Intact Urine WBC (Auto) Urine Creatinine Urine Chloride Urine Total Protein Fluid Glucose Fluid Total Protein Vancomycin Trough Miscellaneous Test Crossmatch Allied health notes reviewed: nursing
--- NOTE | 2018-06-24 10:45 | Progress Note ---
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 CTA negative for PE Acute blood loss anemia Moderate to severe protein calorie malnutrition s/p surgery 05/26 (had ex-lap; matted abdominal organs, pus - Enterostomy tube decompression,loop colostomy and large triple lumen sump drainage of pelvis) s/p bilateral nephrostomy tubes placed 05/14/[address] Freeman.(CTA negative for P.E. ) -Remains critically ill, -VAP bundle -VTE, Stress ulcer prophylaxis -Positive blood cultures, S.epidermis--probably contaminant. Repeat blood cultures -Resume antihypertensive agents -Start nicardipine infusion for blood pressure control -Bronchodilators, supplemental oxygen -Continue broad spectrum antibiotics/anti-infectives per ID recommendations -Nutritional support, TPN and place SBFT for enteric nutritional support -Free water flushes, hypotonic solutions for hypernatremia -CT head today -EEG -Neurology consult -With prolonged CPR, at risk of anoxic injury - continue bronchodilators with pulmonary hygiene per RT - HD/UF for toxin and volume clearance - Malignancy per heme-oncologist - continue mobility protocol for pressure ulcer prevention - continue other care per attending / other consultants Full code status Discussed with hospitalist service. Need discussions with family re goals of care, metastatic disease, post cardiac arrest portends poor prognosis The high probability of a clinically significant, sudden or life threatening deterioration of the [respiratory,cardiac, neurology and renal] system(s) required my full and direct attention, intervention and personal management. The aggregate critical care time was [45] minutes without overlap. Time includes spent on; [x] Data Review and interpretation [x] Patient assessment and monitoring of vital signs [x] Documentation [x] Medication orders and management Subjective Date of service: 06/24/18 Principal diagnosis: sq cell ca Interval history: Patient is seen today for: Acute hypoxic-hypercapnic respiratory failure, s/p cardiopulmonary arrest Seen and examined at bedside; 24-hour events reviewed; nursing and respiratory care staff consulted; Discussed in ICU-IDT rounds Remains unresponsive, off all vasopressors--now hypertensive No fevers overnight. Objective Vital Signs - 12hr 06/23/18 06/23/18 06/23/18 22:50 22:54 23:00 Temperature Pulse Rate 101 H 101 H 101 H Pulse Rate [ From Monitor] Pulse Rate [ Right Dorsalis Pedis] Respiratory 24 24 24 Rate Blood Pressure 146/92 139/89 136/90 O2 Sat by Pulse 100 100 100 Oximetry 06/23/18 06/23/18 06/23/18 23:10 23:20 23:26 Temperature Pulse Rate 105 H 101 H 104 H Pulse Rate [ From Monitor] Pulse Rate [ Right Dorsalis Pedis] Respiratory 23 24 Rate Blood Pressure 136/90 136/90 145/97 O2 Sat by Pulse 100 100 Oximetry 06/23/18 06/23/18 06/23/18 23:30 23:40 23:50 Temperature Pulse Rate 103 H 101 H 101 H Pulse Rate [ From Monitor] Pulse Rate [ Right Dorsalis Pedis] Respiratory 25 H 29 H 24 Rate Blood Pressure 151/95 151/95 144/93 O2 Sat by Pulse 100 100 100 Oximetry 06/24/18 06/24/18 06/24/18 00:00 00:10 00:20 Temperature 99.3 F Pulse Rate 101 H 100 H 102 H Pulse Rate [ 100 H From Monitor] Pulse Rate [ Right Dorsalis Pedis] Respiratory 24 26 H 28 H Rate Blood Pressure 148/95 148/95 144/93 O2 Sat by Pulse 100 100 100 Oximetry 06/24/18 06/24/18 06/24/18 00:30 01:00 01:30 Temperature Pulse Rate 110 H 102 H 102 H Pulse Rate [ From Monitor] Pulse Rate [ Right Dorsalis Pedis] Respiratory 26 H 29 H 28 H Rate Blood Pressure 154/101 146/101 150/97 O2 Sat by Pulse 100 100 100 Oximetry 06/24/18 06/24/18 06/24/18 02:00 02:30 03:00 Temperature Pulse Rate 114 H 100 H 99 H Pulse Rate [ From Monitor] Pulse Rate [ Right Dorsalis Pedis] Respiratory 33 H 25 H 25 H Rate Blood Pressure 171/115 149/100 149/102 O2 Sat by Pulse 100 100 100 Oximetry 06/24/18 06/24/18 06/24/18 03:30 04:00 04:22 Temperature 98.6 F Pulse Rate 102 H 105 H 97 H Pulse Rate [ 90 From Monitor] Pulse Rate [ Right Dorsalis Pedis] Respiratory 24 22 Rate Blood Pressure 149/102 149/102 167/110 O2 Sat by Pulse 100 100 100 Oximetry 06/24/18 06/24/18 06/24/18 04:30 05:00 05:30 Temperature Pulse Rate 98 H 88 82 Pulse Rate [ From Monitor] Pulse Rate [ Right Dorsalis Pedis] Respiratory 25 H 25 H 24 Rate Blood Pressure 167/110 164/102 173/102 O2 Sat by Pulse 100 100 100 Oximetry 06/24/18 06/24/18 06/24/18 06:00 06:30 07:00 Temperature Pulse Rate 82 82 81 Pulse Rate [ From Monitor] Pulse Rate [ Right Dorsalis Pedis] Respiratory 24 24 24 Rate Blood Pressure 168/106 168/106 166/102 O2 Sat by Pulse 100 100 100 Oximetry 06/24/18 06/24/18 06/24/18 07:18 07:30 07:34 Temperature 98.0 F Pulse Rate 81 79 Pulse Rate [ From Monitor] Pulse Rate [ Right Dorsalis Pedis] Respiratory 24 Rate Blood Pressure 171/105 171/101 O2 Sat by Pulse 100 Oximetry 06/24/18 06/24/18 06/24/18 07:50 08:00 08:30 Temperature 98.0 F Pulse Rate 84 78 Pulse Rate [ From Monitor] Pulse Rate [ 84 Right Dorsalis Pedis] Respiratory 31 H 28 H Rate Blood Pressure 151/99 166/91 O2 Sat by Pulse 100 100 Oximetry 06/24/18 06/24/18 06/24/18 08:42 09:00 09:26 Temperature Pulse Rate 88 80 Pulse Rate [ From Monitor] Pulse Rate [ Right Dorsalis Pedis] Respiratory 24 Rate Blood Pressure 168/97 172/100 176/106 O2 Sat by Pulse 100 100 Oximetry 06/24/18 06/24/18 06/24/18 09:30 10:00 10:02 Temperature Pulse Rate 83 82 86 Pulse Rate [ From Monitor] Pulse Rate [ Right Dorsalis Pedis] Respiratory 25 H 24 Rate Blood Pressure 182/112 178/107 178/107 O2 Sat by Pulse 100 100 Oximetry Constitutional: no acute distress, comatose, other (chronically ill looking middle aged AAM, normocephalic and atraumatic, ) Eyes: non-icteric ENT: oropharynx moist, other (orally intubated to MVS, right upper lip blistering rash) Neck: supple, no lymphadenopathy, no JVD, other (no thyromegaly) Effort: mildly labored Ascultation: Bilateral: diminished breath sounds, rales (L>R base), rhonchi ( scant in bases) Percussion: Bilateral: not dull, dull (bases) Cardiovascular: regular rate and rhythm, other (No R/M, S1,S2) Gastrointestinal: hypoactive bowel sounds, soft, tender (mild), other (Distended ; No palpable HSM, bilateral nephrostomy tubes,Ileostomy, ZAIK drain) Integumentary: other (femoral vascath) Extremities: no cyanosis, no edema, pulses normal, no ischemia or petechiae Neurologic: unable to assess, other (right pupil small, pin-point; left pupil dilated, non-reactive) Psychiatric: other (unable to assess) CBC and BMP: 06/24/18 04:30 06/24/18 04:30 ABG, PT/INR, D-dimer: ABG POC ABG pH 7.517 (7.35-7.45) H 06/24/18 04:33 POC ABG pCO2 50.9 (35-45) H 06/24/18 04:33 POC ABG pO2 170 (80-105) H 06/24/18 04:33 POC ABG HCO3 41.2 06/24/18 04:33 POC ABG Total CO2 43 06/24/18 04:33 POC ABG O2 Sat 100 06/24/18 04:33 PT/INR, D-dimer PT 15.2 Sec. (12.2-14.9) H 06/23/18 08:34 INR 1.15 (0.87-1.13) H 06/23/18 08:34 Abnormal lab findings: Abnormal Labs 05/13/18 05/13/18 05/13/18 04:27 04:27 19:39 WBC RBC 3.13 L Hgb 9.4 L Hct 26.8 L MCV MCHC 35 H RDW Plt Count Lymph % (Auto) [place] % (Auto) 9.6 H Lymph # [place] # Seg Neutrophils % Seg Neuts % (Manual) Lymphocytes % (Manual) Monocytes % (Manual) Seg Neutrophils # Seg Neutrophils # Man Lymphocytes # (Manual) Monocytes # (Manual) PT INR APTT Heparin Anti-Xa Level POC ABG pH POC ABG pCO2 POC ABG pO2 Sodium 132 L Potassium 5.5 H Chloride 94.1 L Carbon Dioxide 19 L BUN 72 H Creatinine 14.4 H Glucose POC Glucose Lactic Acid Calcium Phosphorus Magnesium Iron TIBC AST ALT Alkaline Phosphatase Lactate Dehydrogenase Total Creatine Kinase C-Reactive Protein Total Protein Albumin 2.8 L Prealbumin CA 19-9 Antigen Folate PTH Intact Urine WBC (Auto) Urine Creatinine 66.0 H Urine Chloride 27.8 L Urine Total Protein 24 H Fluid Glucose Fluid Total Protein Vancomycin Trough Miscellaneous Test Crossmatch 05/13/18 05/14/18 05/14/18 20:00 05:05 05:05 WBC RBC Hgb Hct MCV MCHC RDW Plt Count Lymph % (Auto) [place] % (Auto) Lymph # [place] # Seg Neutrophils % Seg Neuts % (Manual) Lymphocytes % (Manual) Monocytes % (Manual) Seg Neutrophils # Seg Neutrophils # Man Lymphocytes # (Manual) Monocytes # (Manual) PT INR APTT Heparin Anti-Xa Level POC ABG pH POC ABG pCO2 POC ABG pO2 Sodium 132 L 131 L Potassium 5.2 H 5.8 H Chloride 93.0 L 95.6 L Carbon Dioxide 19 L 20 L BUN 74 H 81 H Creatinine 15.0 H 16.6 H Glucose 134 H 127 H POC Glucose Lactic Acid Calcium 8.2 L 7.9 L Phosphorus 6.30 H Magnesium Iron TIBC AST ALT Alkaline Phosphatase Lactate Dehydrogenase Total Creatine Kinase 236 H C-Reactive Protein Total Protein Albumin Prealbumin CA 19-9 Antigen Folate PTH Intact 65.37 H Urine WBC (Auto) Urine Creatinine Urine Chloride Urine Total Protein Fluid Glucose Fluid Total Protein Vancomycin Trough Miscellaneous Test Crossmatch 05/14/18 05/14/18 05/14/18 09:28 10:56 13:29 WBC RBC Hgb Hct MCV MCHC RDW Plt Count Lymph % (Auto) [place] % (Auto) Lymph # [place] # Seg Neutrophils % Seg Neuts % (Manual) Lymphocytes % (Manual) Monocytes % (Manual) Seg Neutrophils # Seg Neutrophils # Man Lymphocytes # (Manual) Monocytes # (Manual) PT INR APTT 38.2 H Heparin Anti-Xa Level POC ABG pH POC ABG pCO2 POC ABG pO2 Sodium Potassium Chloride Carbon Dioxide BUN Creatinine Glucose POC Glucose 127 H 126 H Lactic Acid Calcium Phosphorus Magnesium Iron TIBC AST ALT Alkaline Phosphatase Lactate Dehydrogenase Total Creatine Kinase C-Reactive Protein Total Protein Albumin Prealbumin CA 19-9 Antigen Folate PTH Intact Urine WBC (Auto) Urine Creatinine Urine Chloride Urine Total Protein Fluid Glucose Fluid Total Protein Vancomycin Trough Miscellaneous Test Crossmatch 05/15/18 05/15/18 05/16/18 08:06 08:06 07:02 WBC RBC 2.84 L 2.74 L Hgb 8.5 L 8.5 L Hct 24.2 L 23.5 L MCV MCHC 35 H 36 H RDW Plt Count Lymph % (Auto) [place] % (Auto) 10.4 H 11.0 H Lymph # 1.1 L [place] # 0.9 H Seg Neutrophils % 72.6 H Seg Neuts % (Manual) Lymphocytes % (Manual) Monocytes % (Manual) Seg Neutrophils # Seg Neutrophils # Man Lymphocytes # (Manual) Monocytes # (Manual) PT INR APTT Heparin Anti-Xa Level POC ABG pH POC ABG pCO2 POC ABG pO2 Sodium Potassium Chloride Carbon Dioxide 19 L BUN 66 H Creatinine 12.0 H Glucose 115 H POC Glucose Lactic Acid Calcium 8.1 L Phosphorus Magnesium Iron TIBC AST ALT Alkaline Phosphatase Lactate Dehydrogenase Total Creatine Kinase C-Reactive Protein Total Protein Albumin Prealbumin CA 19-9 Antigen Folate PTH Intact Urine WBC (Auto) Urine Creatinine Urine Chloride Urine Total Protein Fluid Glucose Fluid Total Protein Vancomycin Trough Miscellaneous Test Crossmatch 05/16/18 05/16/18 05/17/18 07:02 07:02 05:08 WBC RBC 2.78 L Hgb 8.2 L Hct 23.9 L MCV MCHC RDW Plt Count Lymph % (Auto) [place] % (Auto) 13.9 H Lymph # [place] # 0.9 H Seg Neutrophils % Seg Neuts % (Manual) Lymphocytes % (Manual) Monocytes % (Manual) Seg Neutrophils # Seg Neutrophils # Man Lymphocytes # (Manual) Monocytes # (Manual) PT INR APTT Heparin Anti-Xa Level POC ABG pH POC ABG pCO2 POC ABG pO2 Sodium Potassium Chloride Carbon Dioxide BUN 28 H Creatinine 2.4 H D Glucose POC Glucose Lactic Acid Calcium 8.3 L Phosphorus Magnesium 1.50 L Iron 24 L TIBC 160 L AST ALT Alkaline Phosphatase Lactate Dehydrogenase Total Creatine Kinase C-Reactive Protein Total Protein Albumin Prealbumin CA 19-9 Antigen Folate 5.39 L PTH Intact Urine WBC (Auto) Urine Creatinine Urine Chloride Urine Total Protein Fluid Glucose Fluid Total Protein Vancomycin Trough Miscellaneous Test Crossmatch 05/17/18 05/18/18 05/18/18 05:08 05:57 05:57 WBC RBC 2.79 L Hgb 8.3 L Hct 24.0 L MCV MCHC 35 H RDW Plt Count Lymph % (Auto) [place] % (Auto) 11.8 H Lymph # [place] # 0.9 H Seg Neutrophils % Seg Neuts % (Manual) Lymphocytes % (Manual) Monocytes % (Manual) Seg Neutrophils # Seg Neutrophils # Man Lymphocytes # (Manual) Monocytes # (Manual) PT INR APTT Heparin Anti-Xa Level POC ABG pH POC ABG pCO2 POC ABG pO2 Sodium Potassium Chloride Carbon Dioxide BUN Creatinine Glucose POC Glucose Lactic Acid Calcium 7.7 L 8.0 L Phosphorus Magnesium 1.60 L Iron TIBC AST ALT Alkaline Phosphatase Lactate Dehydrogenase Total Creatine Kinase C-Reactive Protein Total Protein Albumin Prealbumin CA 19-9 Antigen Folate PTH Intact Urine WBC (Auto) Urine Creatinine Urine Chloride Urine Total Protein Fluid Glucose Fluid Total Protein Vancomycin Trough Miscellaneous Test Crossmatch 05/19/18 05/19/18 05/20/18 05:33 05:33 05:38 WBC RBC 2.95 L Hgb 8.8 L Hct 25.8 L MCV MCHC RDW Plt Count Lymph % (Auto) 10.1 L [place] % (Auto) Lymph # 1.1 L [place] # Seg Neutrophils % 85.2 H Seg Neuts % (Manual) Lymphocytes % (Manual) Monocytes % (Manual) Seg Neutrophils # 9.0 H Seg Neutrophils # Man Lymphocytes # (Manual) Monocytes # (Manual) PT INR APTT Heparin Anti-Xa Level POC ABG pH POC ABG pCO2 POC ABG pO2 Sodium 135 L Potassium Chloride Carbon Dioxide BUN Creatinine Glucose 132 H POC Glucose Lactic Acid Calcium 7.8 L 8.3 L Phosphorus Magnesium 1.40 L Iron TIBC AST ALT Alkaline Phosphatase Lactate Dehydrogenase Total Creatine Kinase C-Reactive Protein Total Protein Albumin Prealbumin CA 19-9 Antigen Folate PTH Intact Urine WBC (Auto) Urine Creatinine Urine Chloride Urine Total Protein Fluid Glucose Fluid Total Protein Vancomycin Trough Miscellaneous Test Crossmatch 05/21/18 05/21/18 05/22/18 04:46 15:30 06:49 WBC 20.0 H RBC 2.70 L Hgb 7.8 L Hct 23.3 L MCV MCHC RDW Plt Count Lymph % (Auto) [place] % (Auto) Lymph # [place] # Seg Neutrophils % Seg Neuts % (Manual) 85.0 H Lymphocytes % (Manual) 4.0 L Monocytes % (Manual) Seg Neutrophils # Seg Neutrophils # Man 17.0 H Lymphocytes # (Manual) 0.8 L Monocytes # (Manual) PT INR APTT Heparin Anti-Xa Level POC ABG pH POC ABG pCO2 POC ABG pO2 Sodium 135 L Potassium 3.5 L Chloride Carbon Dioxide 21 L BUN 22 H Creatinine Glucose POC Glucose Lactic Acid Calcium 8.1 L Phosphorus Magnesium Iron TIBC AST ALT Alkaline Phosphatase Lactate Dehydrogenase Total Creatine Kinase C-Reactive Protein Total Protein Albumin Prealbumin CA 19-9 Antigen Folate PTH Intact Urine WBC (Auto) 28.0 H Urine Creatinine Urine Chloride Urine Total Protein Fluid Glucose Fluid Total Protein Vancomycin Trough Miscellaneous Test Crossmatch 05/22/18 05/22/18 05/23/18 06:49 11:23 09:03 WBC RBC Hgb Hct MCV MCHC RDW Plt Count Lymph % (Auto) [place] % (Auto) Lymph # [place] # Seg Neutrophils % Seg Neuts % (Manual) Lymphocytes % (Manual) Monocytes % (Manual) Seg Neutrophils # Seg Neutrophils # Man Lymphocytes # (Manual) Monocytes # (Manual) PT INR APTT Heparin Anti-Xa Level POC ABG pH POC ABG pCO2 POC ABG pO2 Sodium 134 L Potassium 3.5 L Chloride Carbon Dioxide 21 L BUN 35 H 36 H Creatinine 1.7 H Glucose 107 H POC Glucose Lactic Acid Calcium 7.9 L Phosphorus Magnesium 2.50 H Iron TIBC AST ALT Alkaline Phosphatase Lactate Dehydrogenase Total Creatine Kinase C-Reactive Protein Total Protein Albumin Prealbumin CA 19-9 Antigen Folate PTH Intact Urine WBC (Auto) Urine Creatinine Urine Chloride Urine Total Protein Fluid Glucose Fluid Total Protein Vancomycin Trough Miscellaneous Test Crossmatch See Detail 05/23/18 05/23/18 05/23/18 09:03 09:03 17:34 WBC 26.3 H RBC 3.57 L Hgb 10.4 L Hct 31.1 L D MCV MCHC RDW Plt Count Lymph % (Auto) [place] % (Auto) Lymph # [place] # Seg Neutrophils % Seg Neuts % (Manual) Lymphocytes % (Manual) Monocytes % (Manual) Seg Neutrophils # Seg Neutrophils # Man Lymphocytes # (Manual) Monocytes # (Manual) PT 18.3 H INR 1.43 H APTT 40.0 H Heparin Anti-Xa Level POC ABG pH POC ABG pCO2 POC ABG pO2 Sodium Potassium Chloride Carbon Dioxide BUN Creatinine Glucose POC Glucose 108 H Lactic Acid Calcium Phosphorus Magnesium Iron TIBC AST ALT Alkaline Phosphatase Lactate Dehydrogenase Total Creatine Kinase C-Reactive Protein Total Protein Albumin Prealbumin CA 19-9 Antigen Folate PTH Intact Urine WBC (Auto) Urine Creatinine Urine Chloride Urine Total Protein Fluid Glucose Fluid Total Protein Vancomycin Trough Miscellaneous Test Crossmatch 05/23/18 05/24/18 05/24/18 21:14 04:43 08:04 WBC RBC Hgb Hct MCV MCHC RDW Plt Count Lymph % (Auto) [place] % (Auto) Lymph # [place] # Seg Neutrophils % Seg Neuts % (Manual) Lymphocytes % (Manual) Monocytes % (Manual) Seg Neutrophils # Seg Neutrophils # Man Lymphocytes # (Manual) Monocytes # (Manual) PT INR APTT Heparin Anti-Xa Level POC ABG pH POC ABG pCO2 POC ABG pO2 Sodium 146 H Potassium Chloride 108.6 H Carbon Dioxide BUN 33 H Creatinine Glucose 109 H POC Glucose 110 H 106 H Lactic Acid Calcium 8.3 L Phosphorus Magnesium 2.50 H Iron TIBC AST ALT Alkaline Phosphatase Lactate Dehydrogenase Total Creatine Kinase C-Reactive Protein Total Protein Albumin Prealbumin CA 19-9 Antigen Folate PTH Intact Urine WBC (Auto) Urine Creatinine Urine Chloride Urine Total Protein Fluid Glucose Fluid Total Protein Vancomycin Trough Miscellaneous Test Crossmatch 05/25/18 05/25/18 05/25/18 05:42 05:49 19:50 WBC RBC Hgb Hct MCV MCHC RDW Plt Count Lymph % (Auto) [place] % (Auto) Lymph # [place] # Seg Neutrophils % Seg Neuts % (Manual) Lymphocytes % (Manual) Monocytes % (Manual) Seg Neutrophils # Seg Neutrophils # Man Lymphocytes # (Manual) Monocytes # (Manual) PT INR APTT Heparin Anti-Xa Level POC ABG pH POC ABG pCO2 POC ABG pO2 Sodium 150 H Potassium Chloride 112.5 H Carbon Dioxide BUN 34 H Creatinine Glucose 102 H POC Glucose 107 H Lactic Acid Calcium Phosphorus Magnesium Iron TIBC AST ALT Alkaline Phosphatase Lactate Dehydrogenase Total Creatine Kinase C-Reactive Protein 34.50 H Total Protein Albumin Prealbumin CA 19-9 Antigen Folate PTH Intact Urine WBC (Auto) Urine Creatinine Urine Chloride Urine Total Protein Fluid Glucose Fluid Total Protein Vancomycin Trough Miscellaneous Test Crossmatch 05/25/18 05/25/18 05/25/18 19:50 21:05 22:46 WBC RBC Hgb Hct MCV MCHC RDW Plt Count Lymph % (Auto) [place] % (Auto) Lymph # [place] # Seg Neutrophils % Seg Neuts % (Manual) Lymphocytes % (Manual) Monocytes % (Manual) Seg Neutrophils # Seg Neutrophils # Man Lymphocytes # (Manual) Monocytes # (Manual) PT INR APTT Heparin Anti-Xa Level POC ABG pH 7.483 H POC ABG pCO2 24.0 L POC ABG pO2 72 L Sodium Potassium Chloride Carbon Dioxide BUN Creatinine Glucose POC Glucose Lactic Acid 5.90 H* Calcium Phosphorus Magnesium Iron TIBC AST ALT Alkaline Phosphatase Lactate Dehydrogenase Total Creatine Kinase C-Reactive Protein Total Protein Albumin Prealbumin CA 19-9 Antigen Folate PTH Intact Urine WBC (Auto) Urine Creatinine Urine Chloride Urine Total Protein Fluid Glucose Fluid Total Protein Vancomycin Trough 25.1 H Miscellaneous Test Crossmatch 05/25/18 05/26/18 05/26/18 22:46 00:21 00:51 WBC RBC Hgb Hct MCV MCHC RDW Plt Count Lymph % (Auto) [place] % (Auto) Lymph # [place] # Seg Neutrophils % Seg Neuts % (Manual) Lymphocytes % (Manual) Monocytes % (Manual) Seg Neutrophils # Seg Neutrophils # Man Lymphocytes # (Manual) Monocytes # (Manual) PT INR APTT Heparin Anti-Xa Level POC ABG pH POC ABG pCO2 POC ABG pO2 Sodium Potassium Chloride Carbon Dioxide BUN Creatinine Glucose POC Glucose 133 H Lactic Acid 8.10 H* 6.20 H* Calcium Phosphorus Magnesium Iron TIBC AST ALT Alkaline Phosphatase Lactate Dehydrogenase Total Creatine Kinase C-Reactive Protein Total Protein Albumin Prealbumin CA 19-9 Antigen Folate PTH Intact Urine WBC (Auto) Urine Creatinine Urine Chloride Urine Total Protein Fluid Glucose Fluid Total Protein Vancomycin Trough Miscellaneous Test Crossmatch 05/26/18 05/26/18 05/26/18 01:13 02:24 02:24 WBC 18.7 H RBC Hgb 11.6 L Hct MCV MCHC RDW Plt Count Lymph % (Auto) [place] % (Auto) Lymph # [place] # Seg Neutrophils % Seg Neuts % (Manual) Lymphocytes % (Manual) Monocytes % (Manual) Seg Neutrophils # Seg Neutrophils # Man Lymphocytes # (Manual) Monocytes # (Manual) PT INR APTT Heparin Anti-Xa Level POC ABG pH POC ABG pCO2 POC ABG pO2 Sodium 147 H Potassium 6.2 H* D Chloride 111.9 H Carbon Dioxide 19 L BUN 80 H Creatinine 5.1 H D Glucose 112 H POC Glucose Lactic Acid 5.20 H* Calcium 6.7 L D Phosphorus Magnesium Iron TIBC AST ALT Alkaline Phosphatase Lactate Dehydrogenase Total Creatine Kinase C-Reactive Protein Total Protein Albumin Prealbumin CA 19-9 Antigen Folate PTH Intact Urine WBC (Auto) Urine Creatinine Urine Chloride Urine Total Protein Fluid Glucose Fluid Total Protein Vancomycin Trough Miscellaneous Test Crossmatch 05/26/18 05/26/18 05/26/18 04:20 04:20 05:39 WBC RBC Hgb Hct MCV MCHC RDW Plt Count Lymph % (Auto) [place] % (Auto) Lymph # [place] # Seg Neutrophils % Seg Neuts % (Manual) Lymphocytes % (Manual) Monocytes % (Manual) Seg Neutrophils # Seg Neutrophils # Man Lymphocytes # (Manual) Monocytes # (Manual) PT INR APTT Heparin Anti-Xa Level POC ABG pH POC ABG pCO2 POC ABG pO2 Sodium 150 H Potassium Chloride 110.0 H Carbon Dioxide 19 L BUN 66 H Creatinine Glucose 166 H POC Glucose 187 H Lactic Acid 5.10 H* Calcium 6.9 L Phosphorus 6.70 H D Magnesium Iron TIBC AST ALT Alkaline Phosphatase Lactate Dehydrogenase Total Creatine Kinase C-Reactive Protein Total Protein Albumin Prealbumin CA 19-9 Antigen Folate PTH Intact Urine WBC (Auto) Urine Creatinine Urine Chloride Urine Total Protein Fluid Glucose Fluid Total Protein Vancomycin Trough Miscellaneous Test Crossmatch 05/26/18 05/26/18 05/26/18 06:02 07:29 11:00 WBC RBC Hgb Hct MCV MCHC RDW Plt Count Lymph % (Auto) [place] % (Auto) Lymph # [place] # Seg Neutrophils % Seg Neuts % (Manual) Lymphocytes % (Manual) Monocytes % (Manual) Seg Neutrophils # Seg Neutrophils # Man Lymphocytes # (Manual) Monocytes # (Manual) PT INR APTT Heparin Anti-Xa Level POC ABG pH POC ABG pCO2 28.8 L POC ABG pO2 Sodium Potassium Chloride Carbon Dioxide BUN Creatinine Glucose POC Glucose Lactic Acid 4.80 H* 3.80 H* Calcium Phosphorus Magnesium Iron TIBC AST ALT Alkaline Phosphatase Lactate Dehydrogenase Total Creatine Kinase C-Reactive Protein Total Protein Albumin Prealbumin CA 19-9 Antigen Folate PTH Intact Urine WBC (Auto) Urine Creatinine Urine Chloride Urine Total Protein Fluid Glucose Fluid Total Protein Vancomycin Trough Miscellaneous Test Crossmatch 05/26/18 05/26/18 05/26/18 11:01 12:28 18:00 WBC RBC Hgb Hct MCV MCHC RDW Plt Count Lymph % (Auto) [place] % (Auto) Lymph # [place] # Seg Neutrophils % Seg Neuts % (Manual) Lymphocytes % (Manual) Monocytes % (Manual) Seg Neutrophils # Seg Neutrophils # Man Lymphocytes # (Manual) Monocytes # (Manual) PT INR APTT Heparin Anti-Xa Level POC ABG pH POC ABG pCO2 POC ABG pO2 Sodium 150 H 151 H Potassium 5.3 H D 6.1 H* Chloride 110.3 H 117.0 H Carbon Dioxide 21 L 20 L BUN 75 H 77 H Creatinine 4.3 H D 4.6 H Glucose 161 H POC Glucose 114 H Lactic Acid Calcium 7.5 L 6.7 L Phosphorus Magnesium Iron TIBC AST 1041 H ALT 406 H Alkaline Phosphatase 281 H Lactate Dehydrogenase Total Creatine Kinase C-Reactive Protein Total Protein 4.4 L Albumin 1.3 L Prealbumin CA 19-9 Antigen Folate PTH Intact Urine WBC (Auto) Urine Creatinine Urine Chloride Urine Total Protein Fluid Glucose Fluid Total Protein Vancomycin Trough Miscellaneous Test Crossmatch 05/26/18 05/26/18 05/27/18 18:02 19:17 01:01 WBC 21.7 H RBC 2.70 L Hgb 7.8 L D Hct 24.6 L D MCV MCHC RDW 15.3 H Plt Count Lymph % (Auto) [place] % (Auto) Lymph # [place] # Seg Neutrophils % Seg Neuts % (Manual) 94.0 H Lymphocytes % (Manual) 3.0 L Monocytes % (Manual) Seg Neutrophils # Seg Neutrophils # Man 20.4 H Lymphocytes # (Manual) 0.7 L Monocytes # (Manual) PT INR APTT Heparin Anti-Xa Level POC ABG pH 7.159 L 7.205 L POC ABG pCO2 54.5 H 53.0 H POC ABG pO2 252 H Sodium Potassium Chloride Carbon Dioxide BUN Creatinine Glucose POC Glucose Lactic Acid Calcium Phosphorus Magnesium Iron TIBC AST ALT Alkaline Phosphatase Lactate Dehydrogenase Total Creatine Kinase C-Reactive Protein Total Protein Albumin Prealbumin CA 19-9 Antigen Folate PTH Intact Urine WBC (Auto) Urine Creatinine Urine Chloride Urine Total Protein Fluid Glucose Fluid Total Protein Vancomycin Trough Miscellaneous Test Crossmatch 05/27/18 05/27/18 05/27/18 05:15 05:15 06:11 WBC 24.9 H RBC 2.86 L Hgb 8.1 L Hct 25.9 L MCV MCHC RDW 15.5 H Plt Count Lymph % (Auto) [place] % (Auto) Lymph # [place] # Seg Neutrophils % Seg Neuts % (Manual) Lymphocytes % (Manual) Monocytes % (Manual) Seg Neutrophils # Seg Neutrophils # Man Lymphocytes # (Manual) Monocytes # (Manual) PT INR APTT Heparin Anti-Xa Level POC ABG pH 7.265 L POC ABG pCO2 46.2 H POC ABG pO2 111 H Sodium 149 H Potassium 6.9 H* Chloride 113.5 H Carbon Dioxide BUN 89 H Creatinine 5.2 H Glucose 118 H POC Glucose Lactic Acid Calcium 7.0 L Phosphorus 9.70 H D Magnesium Iron TIBC AST 876 H ALT 408 H Alkaline Phosphatase Lactate Dehydrogenase Total Creatine Kinase C-Reactive Protein Total Protein 5.2 L Albumin 1.5 L Prealbumin CA 19-9 Antigen Folate PTH Intact Urine WBC (Auto) Urine Creatinine Urine Chloride Urine Total Protein Fluid Glucose Fluid Total Protein Vancomycin Trough Miscellaneous Test Crossmatch 05/27/18 05/27/18 05/27/18 08:48 10:22 10:22 WBC RBC Hgb Hct MCV MCHC RDW Plt Count Lymph % (Auto) [place] % (Auto) Lymph # [place] # Seg Neutrophils % Seg Neuts % (Manual) Lymphocytes % (Manual) Monocytes % (Manual) Seg Neutrophils # Seg Neutrophils # Man Lymphocytes # (Manual) Monocytes # (Manual) PT INR APTT Heparin Anti-Xa Level POC ABG pH POC ABG pCO2 POC ABG pO2 Sodium 146 H Potassium 6.1 H* Chloride 108.2 H Carbon Dioxide 21 L BUN 88 H Creatinine 5.6 H Glucose 163 H POC Glucose 164 H Lactic Acid Calcium 6.7 L Phosphorus Magnesium Iron TIBC AST ALT Alkaline Phosphatase Lactate Dehydrogenase Total Creatine Kinase C-Reactive Protein 40.70 H Total Protein Albumin Prealbumin CA 19-9 Antigen Folate PTH Intact Urine WBC (Auto) Urine Creatinine Urine Chloride Urine Total Protein Fluid Glucose Fluid Total Protein Vancomycin Trough Miscellaneous Test Crossmatch 05/27/18 05/27/18 05/27/18 13:02 17:39 23:27 WBC RBC Hgb Hct MCV MCHC RDW Plt Count Lymph % (Auto) [place] % (Auto) Lymph # [place] # Seg Neutrophils % Seg Neuts % (Manual) Lymphocytes % (Manual) Monocytes % (Manual) Seg Neutrophils # Seg Neutrophils # Man Lymphocytes # (Manual) Monocytes # (Manual) PT INR APTT Heparin Anti-Xa Level POC ABG pH POC ABG pCO2 POC ABG pO2 Sodium Potassium Chloride Carbon Dioxide BUN Creatinine Glucose POC Glucose 59 L 132 H Lactic Acid Calcium Phosphorus Magnesium Iron TIBC AST ALT Alkaline Phosphatase Lactate Dehydrogenase Total Creatine Kinase C-Reactive Protein Total Protein Albumin Prealbumin CA 19-9 Antigen Folate PTH Intact Urine WBC (Auto) Urine Creatinine Urine Chloride Urine Total Protein Fluid Glucose Fluid Total Protein Vancomycin Trough Miscellaneous Test Flexitest 1 H Crossmatch 05/27/18 05/28/18 05/28/18 Unknown 04:32 05:00 WBC RBC Hgb Hct MCV MCHC RDW Plt Count Lymph % (Auto) [place] % (Auto) Lymph # [place] # Seg Neutrophils % Seg Neuts % (Manual) Lymphocytes % (Manual) Monocytes % (Manual) Seg Neutrophils # Seg Neutrophils # Man Lymphocytes # (Manual) Monocytes # (Manual) PT INR APTT Heparin Anti-Xa Level POC ABG pH POC ABG pCO2 POC ABG pO2 134 H Sodium Potassium Chloride Carbon Dioxide BUN 69 H Creatinine 4.4 H Glucose 118 H POC Glucose Lactic Acid Calcium 8.0 L D Phosphorus 6.80 H D Magnesium Iron TIBC AST ALT Alkaline Phosphatase Lactate Dehydrogenase Total Creatine Kinase C-Reactive Protein Total Protein Albumin Prealbumin CA 19-9 Antigen Folate PTH Intact Urine WBC (Auto) 120.0 H Urine Creatinine Urine Chloride Urine Total Protein Fluid Glucose Fluid Total Protein Vancomycin Trough Miscellaneous Test Crossmatch 05/28/18 05/28/18 05/28/18 05:00 05:27 13:04 WBC 26.5 H RBC 2.69 L Hgb 7.7 L Hct 23.6 L MCV MCHC RDW Plt Count Lymph % (Auto) [place] % (Auto) Lymph # [place] # Seg Neutrophils % Seg Neuts % (Manual) 96.0 H Lymphocytes % (Manual) 0 L Monocytes % (Manual) Seg Neutrophils # Seg Neutrophils # Man 25.4 H Lymphocytes # (Manual) 0.0 L Monocytes # (Manual) PT INR APTT Heparin Anti-Xa Level POC ABG pH POC ABG pCO2 POC ABG pO2 Sodium Potassium Chloride Carbon Dioxide BUN Creatinine Glucose POC Glucose 128 H 155 H Lactic Acid Calcium Phosphorus Magnesium Iron TIBC AST ALT Alkaline Phosphatase Lactate Dehydrogenase Total Creatine Kinase C-Reactive Protein Total Protein Albumin Prealbumin CA 19-9 Antigen Folate PTH Intact Urine WBC (Auto) Urine Creatinine Urine Chloride Urine Total Protein Fluid Glucose Fluid Total Protein Vancomycin Trough Miscellaneous Test Crossmatch 05/28/18 05/29/18 05/29/18 17:56 03:35 04:00 WBC RBC Hgb Hct MCV MCHC RDW Plt Count Lymph % (Auto) [place] % (Auto) Lymph # [place] # Seg Neutrophils % Seg Neuts % (Manual) Lymphocytes % (Manual) Monocytes % (Manual) Seg Neutrophils # Seg Neutrophils # Man Lymphocytes # (Manual) Monocytes # (Manual) PT INR APTT Heparin Anti-Xa Level POC ABG pH 7.471 H POC ABG pCO2 POC ABG pO2 78 L Sodium Potassium Chloride Carbon Dioxide BUN 50 H Creatinine 3.9 H Glucose POC Glucose 110 H Lactic Acid Calcium 7.7 L Phosphorus Magnesium 1.50 L Iron TIBC AST 218 H ALT 204 H Alkaline Phosphatase Lactate Dehydrogenase Total Creatine Kinase C-Reactive Protein Total Protein 5.4 L Albumin 1.6 L Prealbumin CA 19-9 Antigen Folate PTH Intact Urine WBC (Auto) Urine Creatinine Urine Chloride Urine Total Protein Fluid Glucose Fluid Total Protein Vancomycin Trough Miscellaneous Test Crossmatch 05/29/18 05/29/18 05/30/18 11:51 23:56 04:54 WBC RBC Hgb Hct MCV MCHC RDW Plt Count Lymph % (Auto) [place] % (Auto) Lymph # [place] # Seg Neutrophils % Seg Neuts % (Manual) Lymphocytes % (Manual) Monocytes % (Manual) Seg Neutrophils # Seg Neutrophils # Man Lymphocytes # (Manual) Monocytes # (Manual) PT INR APTT Heparin Anti-Xa Level POC ABG pH POC ABG pCO2 POC ABG pO2 Sodium Potassium Chloride Carbon Dioxide BUN Creatinine Glucose POC Glucose 131 H 119 H 115 H Lactic Acid Calcium Phosphorus Magnesium Iron TIBC AST ALT Alkaline Phosphatase Lactate Dehydrogenase Total Creatine Kinase C-Reactive Protein Total Protein Albumin Prealbumin CA 19-9 Antigen Folate PTH Intact Urine WBC (Auto) Urine Creatinine Urine Chloride Urine Total Protein Fluid Glucose Fluid Total Protein Vancomycin Trough Miscellaneous Test Crossmatch 05/30/18 05/30/18 05/30/18 05:07 05:15 05:15 WBC 16.2 H RBC 2.53 L Hgb 7.4 L Hct 21.9 L MCV MCHC RDW Plt Count Lymph % (Auto) [place] % (Auto) Lymph # [place] # Seg Neutrophils % Seg Neuts % (Manual) Lymphocytes % (Manual) Monocytes % (Manual) Seg Neutrophils # Seg Neutrophils # Man Lymphocytes # (Manual) Monocytes # (Manual) PT INR APTT Heparin Anti-Xa Level POC ABG pH POC ABG pCO2 34.5 L POC ABG pO2 133 H Sodium 135 L Potassium Chloride 97.5 L Carbon Dioxide BUN 69 H Creatinine 5.4 H Glucose 105 H POC Glucose Lactic Acid Calcium 7.5 L Phosphorus 5.30 H D Magnesium Iron TIBC AST ALT Alkaline Phosphatase Lactate Dehydrogenase Total Creatine Kinase C-Reactive Protein Total Protein Albumin Prealbumin CA 19-9 Antigen Folate PTH Intact Urine WBC (Auto) Urine Creatinine Urine Chloride Urine Total Protein Fluid Glucose Fluid Total Protein Vancomycin Trough Miscellaneous Test Crossmatch 05/30/18 05/30/18 05/31/18 12:13 17:10 04:50 WBC 18.7 H RBC 2.86 L Hgb 8.2 L Hct 24.8 L MCV MCHC RDW Plt Count Lymph % (Auto) [place] % (Auto) Lymph # [place] # Seg Neutrophils % Seg Neuts % (Manual) 91.0 H Lymphocytes % (Manual) 2.0 L Monocytes % (Manual) Seg Neutrophils # Seg Neutrophils # Man 17.0 H Lymphocytes # (Manual) 0.4 L Monocytes # (Manual) PT INR APTT Heparin Anti-Xa Level POC ABG pH POC ABG pCO2 POC ABG pO2 Sodium Potassium Chloride Carbon Dioxide BUN Creatinine Glucose POC Glucose 132 H 122 H Lactic Acid Calcium Phosphorus Magnesium Iron TIBC AST ALT Alkaline Phosphatase Lactate Dehydrogenase Total Creatine Kinase C-Reactive Protein Total Protein Albumin Prealbumin CA 19-9 Antigen Folate PTH Intact Urine WBC (Auto) Urine Creatinine Urine Chloride Urine Total Protein Fluid Glucose Fluid Total Protein Vancomycin Trough Miscellaneous Test Crossmatch 05/31/18 05/31/18 05/31/18 04:50 05:45 11:37 WBC RBC Hgb Hct MCV MCHC RDW Plt Count Lymph % (Auto) [place] % (Auto) Lymph # [place] # Seg Neutrophils % Seg Neuts % (Manual) Lymphocytes % (Manual) Monocytes % (Manual) Seg Neutrophils # Seg Neutrophils # Man Lymphocytes # (Manual) Monocytes # (Manual) PT INR APTT Heparin Anti-Xa Level POC ABG pH POC ABG pCO2 POC ABG pO2 Sodium 132 L Potassium Chloride 92.4 L Carbon Dioxide BUN 77 H Creatinine 5.9 H Glucose POC Glucose 111 H 136 H Lactic Acid Calcium 7.3 L Phosphorus 6.40 H D Magnesium Iron TIBC AST ALT Alkaline Phosphatase Lactate Dehydrogenase Total Creatine Kinase C-Reactive Protein Total Protein Albumin Prealbumin CA 19-9 Antigen Folate PTH Intact Urine WBC (Auto) Urine Creatinine Urine Chloride Urine Total Protein Fluid Glucose Fluid Total Protein Vancomycin Trough Miscellaneous Test Crossmatch 05/31/18 06/01/18 06/01/18 17:52 00:09 04:00 WBC RBC Hgb Hct MCV MCHC RDW Plt Count Lymph % (Auto) [place] % (Auto) Lymph # [place] # Seg Neutrophils % Seg Neuts % (Manual) Lymphocytes % (Manual) Monocytes % (Manual) Seg Neutrophils # Seg Neutrophils # Man Lymphocytes # (Manual) Monocytes # (Manual) PT INR APTT Heparin Anti-Xa Level POC ABG pH POC ABG pCO2 POC ABG pO2 Sodium Potassium Chloride 97.5 L Carbon Dioxide BUN 49 H Creatinine 4.2 H Glucose 104 H POC Glucose 115 H 114 H Lactic Acid Calcium 7.3 L Phosphorus 4.70 H D Magnesium Iron TIBC AST ALT Alkaline Phosphatase Lactate Dehydrogenase Total Creatine Kinase C-Reactive Protein Total Protein Albumin Prealbumin CA 19-9 Antigen Folate PTH Intact Urine WBC (Auto) Urine Creatinine Urine Chloride Urine Total Protein Fluid Glucose Fluid Total Protein Vancomycin Trough Miscellaneous Test Crossmatch 06/01/18 06/01/18 06/02/18 11:10 17:56 00:15 WBC RBC Hgb Hct MCV MCHC RDW Plt Count Lymph % (Auto) [place] % (Auto) Lymph # [place] # Seg Neutrophils % Seg Neuts % (Manual) Lymphocytes % (Manual) Monocytes % (Manual) Seg Neutrophils # Seg Neutrophils # Man Lymphocytes # (Manual) Monocytes # (Manual) PT INR APTT Heparin Anti-Xa Level POC ABG pH POC ABG pCO2 POC ABG pO2 Sodium Potassium Chloride Carbon Dioxide BUN Creatinine Glucose POC Glucose 123 H 126 H 135 H Lactic Acid Calcium Phosphorus Magnesium Iron TIBC AST ALT Alkaline Phosphatase Lactate Dehydrogenase Total Creatine Kinase C-Reactive Protein Total Protein Albumin Prealbumin CA 19-9 Antigen Folate PTH Intact Urine WBC (Auto) Urine Creatinine Urine Chloride Urine Total Protein Fluid Glucose Fluid Total Protein Vancomycin Trough Miscellaneous Test Crossmatch 06/02/18 06/02/18 06/02/18 05:23 12:42 13:05 WBC RBC Hgb Hct MCV MCHC RDW Plt Count Lymph % (Auto) [place] % (Auto) Lymph # [place] # Seg Neutrophils % Seg Neuts % (Manual) Lymphocytes % (Manual) Monocytes % (Manual) Seg Neutrophils # Seg Neutrophils # Man Lymphocytes # (Manual) Monocytes # (Manual) PT 17.1 H INR 1.34 H APTT Heparin Anti-Xa Level POC ABG pH POC ABG pCO2 POC ABG pO2 Sodium Potassium Chloride Carbon Dioxide BUN Creatinine Glucose POC Glucose 135 H 142 H Lactic Acid Calcium Phosphorus Magnesium Iron TIBC AST ALT Alkaline Phosphatase Lactate Dehydrogenase Total Creatine Kinase C-Reactive Protein Total Protein Albumin Prealbumin CA 19-9 Antigen Folate PTH Intact Urine WBC (Auto) Urine Creatinine Urine Chloride Urine Total Protein Fluid Glucose Fluid Total Protein Vancomycin Trough Miscellaneous Test Crossmatch 06/02/18 06/02/18 06/03/18 Unknown Unknown 00:54 WBC 20.8 H RBC 2.67 L Hgb 7.7 L Hct 23.0 L MCV MCHC RDW Plt Count 500 H Lymph % (Auto) [place] % (Auto) Lymph # [place] # Seg Neutrophils % Seg Neuts % (Manual) Lymphocytes % (Manual) Monocytes % (Manual) Seg Neutrophils # Seg Neutrophils # Man Lymphocytes # (Manual) Monocytes # (Manual) PT INR APTT Heparin Anti-Xa Level POC ABG pH POC ABG pCO2 POC ABG pO2 Sodium 136 L Potassium 3.5 L Chloride 96.9 L Carbon Dioxide BUN 62 H Creatinine 4.9 H Glucose 133 H POC Glucose 125 H Lactic Acid Calcium 7.2 L Phosphorus 5.00 H Magnesium Iron TIBC AST 46 H ALT 66 H Alkaline Phosphatase Lactate Dehydrogenase Total Creatine Kinase C-Reactive Protein Total Protein 5.7 L Albumin 1.5 L Prealbumin CA 19-9 Antigen Folate PTH Intact Urine WBC (Auto) Urine Creatinine Urine Chloride Urine Total Protein Fluid Glucose Fluid Total Protein Vancomycin Trough Miscellaneous Test Crossmatch 06/03/18 06/03/18 06/03/18 03:31 09:18 09:18 WBC RBC Hgb Hct MCV MCHC RDW Plt Count Lymph % (Auto) [place] % (Auto) Lymph # [place] # Seg Neutrophils % Seg Neuts % (Manual) Lymphocytes % (Manual) Monocytes % (Manual) Seg Neutrophils # Seg Neutrophils # Man Lymphocytes # (Manual) Monocytes # (Manual) PT 17.1 H INR 1.34 H APTT Heparin Anti-Xa Level POC ABG pH POC ABG pCO2 POC ABG pO2 Sodium 136 L Potassium Chloride Carbon Dioxide BUN 41 H Creatinine 3.4 H Glucose 129 H POC Glucose Lactic Acid Calcium 7.4 L Phosphorus Magnesium Iron TIBC AST ALT Alkaline Phosphatase Lactate Dehydrogenase Total Creatine Kinase C-Reactive Protein 11.10 H Total Protein Albumin Prealbumin CA 19-9 Antigen Folate PTH Intact Urine WBC (Auto) Urine Creatinine Urine Chloride Urine Total Protein Fluid Glucose Fluid Total Protein Vancomycin Trough Miscellaneous Test Crossmatch 06/03/18 06/03/18 06/03/18 16:07 21:18 Unknown WBC RBC Hgb Hct MCV MCHC RDW Plt Count Lymph % (Auto) [place] % (Auto) Lymph # [place] # Seg Neutrophils % Seg Neuts % (Manual) Lymphocytes % (Manual) Monocytes % (Manual) Seg Neutrophils # Seg Neutrophils # Man Lymphocytes # (Manual) Monocytes # (Manual) PT INR APTT Heparin Anti-Xa Level POC ABG pH POC ABG pCO2 POC ABG pO2 Sodium Potassium Chloride Carbon Dioxide BUN Creatinine Glucose POC Glucose 144 H 128 H Lactic Acid Calcium Phosphorus Magnesium Iron TIBC AST ALT Alkaline Phosphatase Lactate Dehydrogenase Total Creatine Kinase C-Reactive Protein Total Protein Albumin Prealbumin CA 19-9 Antigen Folate PTH Intact Urine WBC (Auto) Urine Creatinine Urine Chloride Urine Total Protein Fluid Glucose 10 L Fluid Total Protein 3.7 L Vancomycin Trough Miscellaneous Test Crossmatch 06/04/18 06/04/18 06/04/18 04:31 06:14 11:38 WBC RBC Hgb Hct MCV MCHC RDW Plt Count Lymph % (Auto) [place] % (Auto) Lymph # [place] # Seg Neutrophils % Seg Neuts % (Manual) Lymphocytes % (Manual) Monocytes % (Manual) Seg Neutrophils # Seg Neutrophils # Man Lymphocytes # (Manual) Monocytes # (Manual) PT INR APTT Heparin Anti-Xa Level POC ABG pH POC ABG pCO2 POC ABG pO2 Sodium Potassium Chloride Carbon Dioxide BUN 55 H Creatinine 3.7 H Glucose 151 H POC Glucose 145 H 129 H Lactic Acid Calcium 7.8 L Phosphorus 4.60 H Magnesium Iron TIBC AST ALT Alkaline Phosphatase Lactate Dehydrogenase Total Creatine Kinase C-Reactive Protein Total Protein Albumin Prealbumin CA 19-9 Antigen Folate PTH Intact Urine WBC (Auto) Urine Creatinine Urine Chloride Urine Total Protein Fluid Glucose Fluid Total Protein Vancomycin Trough Miscellaneous Test Crossmatch 06/04/18 06/04/18 06/04/18 17:09 20:00 21:29 WBC RBC Hgb 8.8 L Hct 27.3 L MCV MCHC RDW Plt Count Lymph % (Auto) [place] % (Auto) Lymph # [place] # Seg Neutrophils % Seg Neuts % (Manual) Lymphocytes % (Manual) Monocytes % (Manual) Seg Neutrophils # Seg Neutrophils # Man Lymphocytes # (Manual) Monocytes # (Manual) PT INR APTT Heparin Anti-Xa Level POC ABG pH POC ABG pCO2 POC ABG pO2 Sodium Potassium Chloride Carbon Dioxide BUN Creatinine Glucose POC Glucose 142 H 130 H Lactic Acid Calcium Phosphorus Magnesium Iron TIBC AST ALT Alkaline Phosphatase Lactate Dehydrogenase Total Creatine Kinase C-Reactive Protein Total Protein Albumin Prealbumin CA 19-9 Antigen Folate PTH Intact Urine WBC (Auto) Urine Creatinine Urine Chloride Urine Total Protein Fluid Glucose Fluid Total Protein Vancomycin Trough Miscellaneous Test Crossmatch 06/05/18 06/05/18 06/05/18 06:30 07:00 07:00 WBC 19.3 H RBC 2.94 L Hgb 8.3 L Hct 25.6 L MCV MCHC RDW 15.7 H Plt Count 568 H Lymph % (Auto) 4.7 L [place] % (Auto) Lymph # 0.9 L [place] # 1.1 H Seg Neutrophils % 88.9 H Seg Neuts % (Manual) Lymphocytes % (Manual) Monocytes % (Manual) Seg Neutrophils # 17.2 H Seg Neutrophils # Man Lymphocytes # (Manual) Monocytes # (Manual) PT INR APTT Heparin Anti-Xa Level POC ABG pH POC ABG pCO2 POC ABG pO2 Sodium Potassium 3.4 L D Chloride Carbon Dioxide BUN 67 H Creatinine 3.6 H Glucose 145 H POC Glucose 153 H Lactic Acid Calcium 7.9 L Phosphorus 4.60 H Magnesium Iron TIBC AST ALT Alkaline Phosphatase Lactate Dehydrogenase Total Creatine Kinase C-Reactive Protein Total Protein Albumin Prealbumin CA 19-9 Antigen Folate PTH Intact Urine WBC (Auto) Urine Creatinine Urine Chloride Urine Total Protein Fluid Glucose Fluid Total Protein Vancomycin Trough Miscellaneous Test Crossmatch 06/05/18 06/05/18 06/06/18 12:10 16:01 06:39 WBC RBC Hgb Hct MCV MCHC RDW Plt Count Lymph % (Auto) [place] % (Auto) Lymph # [place] # Seg Neutrophils % Seg Neuts % (Manual) Lymphocytes % (Manual) Monocytes % (Manual) Seg Neutrophils # Seg Neutrophils # Man Lymphocytes # (Manual) Monocytes # (Manual) PT INR APTT Heparin Anti-Xa Level POC ABG pH POC ABG pCO2 POC ABG pO2 Sodium Potassium Chloride Carbon Dioxide BUN Creatinine Glucose POC Glucose 150 H 129 H 131 H Lactic Acid Calcium Phosphorus Magnesium Iron TIBC AST ALT Alkaline Phosphatase Lactate Dehydrogenase Total Creatine Kinase C-Reactive Protein Total Protein Albumin Prealbumin CA 19-9 Antigen Folate PTH Intact Urine WBC (Auto) Urine Creatinine Urine Chloride Urine Total Protein Fluid Glucose Fluid Total Protein Vancomycin Trough Miscellaneous Test Crossmatch 06/06/18 06/06/18 06/06/18 07:14 07:14 07:14 WBC 16.5 H RBC 2.84 L Hgb 8.1 L Hct 25.2 L MCV MCHC RDW 16.4 H Plt Count 526 H Lymph % (Auto) 6.5 L [place] % (Auto) Lymph # 1.1 L [place] # 1.2 H Seg Neutrophils % 85.3 H Seg Neuts % (Manual) Lymphocytes % (Manual) Monocytes % (Manual) Seg Neutrophils # 14.1 H Seg Neutrophils # Man Lymphocytes # (Manual) Monocytes # (Manual) PT INR APTT Heparin Anti-Xa Level POC ABG pH POC ABG pCO2 POC ABG pO2 Sodium Potassium Chloride 109.1 H Carbon Dioxide 21 L BUN 76 H Creatinine 3.5 H Glucose 111 H POC Glucose Lactic Acid Calcium 8.1 L Phosphorus Magnesium Iron TIBC AST ALT Alkaline Phosphatase Lactate Dehydrogenase Total Creatine Kinase C-Reactive Protein 4.70 H Total Protein Albumin Prealbumin CA 19-9 Antigen Folate PTH Intact Urine WBC (Auto) Urine Creatinine Urine Chloride Urine Total Protein Fluid Glucose Fluid Total Protein Vancomycin Trough Miscellaneous Test Crossmatch 06/06/18 06/06/18 06/06/18 11:15 18:00 23:58 WBC RBC Hgb Hct MCV MCHC RDW Plt Count Lymph % (Auto) [place] % (Auto) Lymph # [place] # Seg Neutrophils % Seg Neuts % (Manual) Lymphocytes % (Manual) Monocytes % (Manual) Seg Neutrophils # Seg Neutrophils # Man Lymphocytes # (Manual) Monocytes # (Manual) PT INR APTT Heparin Anti-Xa Level POC ABG pH POC ABG pCO2 POC ABG pO2 Sodium Potassium Chloride Carbon Dioxide BUN Creatinine Glucose POC Glucose 127 H 130 H 114 H Lactic Acid Calcium Phosphorus Magnesium Iron TIBC AST ALT Alkaline Phosphatase Lactate Dehydrogenase Total Creatine Kinase C-Reactive Protein Total Protein Albumin Prealbumin CA 19-9 Antigen Folate PTH Intact Urine WBC (Auto) Urine Creatinine Urine Chloride Urine Total Protein Fluid Glucose Fluid Total Protein Vancomycin Trough Miscellaneous Test Crossmatch 06/07/18 06/07/18 06/07/18 05:45 05:45 05:54 WBC 15.5 H RBC 2.60 L Hgb 7.4 L Hct 23.1 L MCV MCHC RDW 16.5 H Plt Count 506 H Lymph % (Auto) 5.3 L [place] % (Auto) Lymph # 0.8 L [place] # 1.0 H Seg Neutrophils % 86.6 H Seg Neuts % (Manual) Lymphocytes % (Manual) Monocytes % (Manual) Seg Neutrophils # 13.4 H Seg Neutrophils # Man Lymphocytes # (Manual) Monocytes # (Manual) PT INR APTT Heparin Anti-Xa Level POC ABG pH POC ABG pCO2 POC ABG pO2 Sodium Potassium Chloride 108.4 H Carbon Dioxide BUN 84 H Creatinine 3.5 H Glucose 119 H POC Glucose 114 H Lactic Acid Calcium 8.1 L Phosphorus 5.10 H Magnesium Iron TIBC AST ALT Alkaline Phosphatase Lactate Dehydrogenase Total Creatine Kinase C-Reactive Protein Total Protein Albumin Prealbumin CA 19-9 Antigen Folate PTH Intact Urine WBC (Auto) Urine Creatinine Urine Chloride Urine Total Protein Fluid Glucose Fluid Total Protein Vancomycin Trough Miscellaneous Test Crossmatch 06/07/18 06/08/18 06/08/18 12:15 05:05 05:24 WBC RBC Hgb Hct MCV MCHC RDW Plt Count Lymph % (Auto) [place] % (Auto) Lymph # [place] # Seg Neutrophils % Seg Neuts % (Manual) Lymphocytes % (Manual) Monocytes % (Manual) Seg Neutrophils # Seg Neutrophils # Man Lymphocytes # (Manual) Monocytes # (Manual) PT INR APTT Heparin Anti-Xa Level POC ABG pH POC ABG pCO2 POC ABG pO2 Sodium 148 H Potassium Chloride 112.4 H Carbon Dioxide BUN 89 H Creatinine 3.4 H Glucose 120 H POC Glucose 148 H 115 H Lactic Acid Calcium 7.9 L Phosphorus Magnesium Iron TIBC AST ALT Alkaline Phosphatase Lactate Dehydrogenase Total Creatine Kinase C-Reactive Protein Total Protein Albumin Prealbumin CA 19-9 Antigen Folate PTH Intact Urine WBC (Auto) Urine Creatinine Urine Chloride Urine Total Protein Fluid Glucose Fluid Total Protein Vancomycin Trough Miscellaneous Test Crossmatch 06/08/18 06/08/18 06/08/18 21:36 21:43 21:43 WBC RBC 2.98 L Hgb 8.8 L Hct 26.6 L MCV MCHC RDW 16.7 H Plt Count 463 H Lymph % (Auto) 7.9 L [place] % (Auto) Lymph # 0.8 L [place] # Seg Neutrophils % 84.8 H Seg Neuts % (Manual) Lymphocytes % (Manual) Monocytes % (Manual) Seg Neutrophils # 8.6 H Seg Neutrophils # Man Lymphocytes # (Manual) Monocytes # (Manual) PT INR APTT Heparin Anti-Xa Level POC ABG pH POC ABG pCO2 POC ABG pO2 Sodium Potassium Chloride Carbon Dioxide BUN Creatinine Glucose POC Glucose Lactic Acid Calcium Phosphorus Magnesium Iron TIBC AST ALT Alkaline Phosphatase Lactate Dehydrogenase 297 H Total Creatine Kinase C-Reactive Protein Total Protein Albumin Prealbumin CA 19-9 Antigen 57 H Folate PTH Intact Urine WBC (Auto) Urine Creatinine Urine Chloride Urine Total Protein Fluid Glucose Fluid Total Protein Vancomycin Trough Miscellaneous Test Crossmatch 06/09/18 06/09/18 06/09/18 00:05 05:34 05:50 WBC RBC Hgb Hct MCV MCHC RDW Plt Count Lymph % (Auto) [place] % (Auto) Lymph # [place] # Seg Neutrophils % Seg Neuts % (Manual) Lymphocytes % (Manual) Monocytes % (Manual) Seg Neutrophils # Seg Neutrophils # Man Lymphocytes # (Manual) Monocytes # (Manual) PT INR APTT Heparin Anti-Xa Level POC ABG pH POC ABG pCO2 POC ABG pO2 Sodium 153 H Potassium Chloride 117.3 H Carbon Dioxide BUN 84 H Creatinine 3.2 H Glucose 117 H POC Glucose 140 H 146 H Lactic Acid Calcium 7.9 L Phosphorus Magnesium Iron TIBC AST ALT Alkaline Phosphatase Lactate Dehydrogenase Total Creatine Kinase C-Reactive Protein Total Protein Albumin Prealbumin CA 19-9 Antigen Folate PTH Intact Urine WBC (Auto) Urine Creatinine Urine Chloride Urine Total Protein Fluid Glucose Fluid Total Protein Vancomycin Trough Miscellaneous Test Crossmatch 06/09/18 06/09/18 06/09/18 05:50 07:37 10:34 WBC RBC 2.32 L Hgb 6.8 L Hct 20.7 L MCV MCHC RDW 16.7 H Plt Count Lymph % (Auto) [place] % (Auto) Lymph # [place] # Seg Neutrophils % Seg Neuts % (Manual) Lymphocytes % (Manual) Monocytes % (Manual) Seg Neutrophils # Seg Neutrophils # Man Lymphocytes # (Manual) Monocytes # (Manual) PT INR APTT Heparin Anti-Xa Level POC ABG pH POC ABG pCO2 POC ABG pO2 Sodium 149 H Potassium Chloride 114.6 H Carbon Dioxide BUN 84 H Creatinine 3.1 H Glucose 137 H POC Glucose Lactic Acid Calcium 7.7 L Phosphorus Magnesium Iron TIBC AST ALT Alkaline Phosphatase Lactate Dehydrogenase Total Creatine Kinase C-Reactive Protein Total Protein Albumin Prealbumin CA 19-9 Antigen Folate PTH Intact Urine WBC (Auto) Urine Creatinine Urine Chloride Urine Total Protein Fluid Glucose Fluid Total Protein Vancomycin Trough Miscellaneous Test Flexitest 1 H Crossmatch 06/09/18 06/09/18 06/09/18 10:41 11:56 13:24 WBC RBC 2.43 L Hgb 7.2 L Hct 21.6 L MCV MCHC RDW 16.8 H Plt Count Lymph % (Auto) [place] % (Auto) Lymph # [place] # Seg Neutrophils % Seg Neuts % (Manual) Lymphocytes % (Manual) Monocytes % (Manual) Seg Neutrophils # Seg Neutrophils # Man Lymphocytes # (Manual) Monocytes # (Manual) PT INR APTT Heparin Anti-Xa Level POC ABG pH POC ABG pCO2 POC ABG pO2 Sodium Potassium Chloride Carbon Dioxide BUN Creatinine Glucose POC Glucose 141 H Lactic Acid Calcium Phosphorus Magnesium Iron TIBC AST ALT Alkaline Phosphatase Lactate Dehydrogenase Total Creatine Kinase C-Reactive Protein Total Protein Albumin Prealbumin CA 19-9 Antigen Folate PTH Intact Urine WBC (Auto) Urine Creatinine Urine Chloride Urine Total Protein Fluid Glucose Fluid Total Protein Vancomycin Trough Miscellaneous Test Crossmatch See Detail 06/09/18 06/09/18 06/10/18 18:18 23:13 05:26 WBC RBC Hgb Hct MCV MCHC RDW Plt Count Lymph % (Auto) [place] % (Auto) Lymph # [place] # Seg Neutrophils % Seg Neuts % (Manual) Lymphocytes % (Manual) Monocytes % (Manual) Seg Neutrophils # Seg Neutrophils # Man Lymphocytes # (Manual) Monocytes # (Manual) PT INR APTT Heparin Anti-Xa Level POC ABG pH POC ABG pCO2 POC ABG pO2 Sodium 148 H Potassium Chloride 114.7 H Carbon Dioxide 21 L BUN 79 H Creatinine 3.2 H Glucose 121 H POC Glucose 156 H 163 H Lactic Acid Calcium 7.8 L Phosphorus Magnesium 1.60 L Iron TIBC AST ALT Alkaline Phosphatase Lactate Dehydrogenase Total Creatine Kinase C-Reactive Protein Total Protein Albumin Prealbumin CA 19-9 Antigen Folate PTH Intact Urine WBC (Auto) Urine Creatinine Urine Chloride Urine Total Protein Fluid Glucose Fluid Total Protein Vancomycin Trough Miscellaneous Test Crossmatch 06/10/18 06/10/18 06/10/18 05:26 05:31 17:15 WBC 11.1 H RBC 3.07 L Hgb 9.1 L Hct 27.6 L D MCV MCHC RDW 17.4 H Plt Count Lymph % (Auto) [place] % (Auto) Lymph # [place] # Seg Neutrophils % Seg Neuts % (Manual) Lymphocytes % (Manual) Monocytes % (Manual) Seg Neutrophils # Seg Neutrophils # Man Lymphocytes # (Manual) Monocytes # (Manual) PT INR APTT Heparin Anti-Xa Level POC ABG pH POC ABG pCO2 POC ABG pO2 Sodium Potassium Chloride Carbon Dioxide BUN Creatinine Glucose POC Glucose 128 H Lactic Acid Calcium Phosphorus Magnesium Iron TIBC AST ALT Alkaline Phosphatase Lactate Dehydrogenase Total Creatine Kinase C-Reactive Protein 3.60 H Total Protein Albumin Prealbumin CA 19-9 Antigen Folate PTH Intact Urine WBC (Auto) Urine Creatinine Urine Chloride Urine Total Protein Fluid Glucose Fluid Total Protein Vancomycin Trough Miscellaneous Test Crossmatch 06/11/18 06/11/18 06/11/18 01:13 05:41 05:41 WBC 14.6 H RBC 3.40 L Hgb 9.8 L Hct 30.7 L MCV MCHC RDW 18.1 H Plt Count Lymph % (Auto) [place] % (Auto) Lymph # [place] # Seg Neutrophils % Seg Neuts % (Manual) Lymphocytes % (Manual) Monocytes % (Manual) Seg Neutrophils # Seg Neutrophils # Man Lymphocytes # (Manual) Monocytes # (Manual) PT INR APTT Heparin Anti-Xa Level POC ABG pH POC ABG pCO2 POC ABG pO2 Sodium Potassium Chloride 110.8 H Carbon Dioxide 18 L BUN 77 H Creatinine 3.0 H Glucose 116 H POC Glucose 126 H Lactic Acid Calcium 7.9 L Phosphorus Magnesium Iron TIBC AST ALT Alkaline Phosphatase Lactate Dehydrogenase Total Creatine Kinase C-Reactive Protein Total Protein Albumin Prealbumin CA 19-9 Antigen Folate PTH Intact Urine WBC (Auto) Urine Creatinine Urine Chloride Urine Total Protein Fluid Glucose Fluid Total Protein Vancomycin Trough Miscellaneous Test Crossmatch 06/11/18 06/11/18 06/11/18 06:20 07:41 07:41 WBC RBC Hgb Hct MCV MCHC RDW Plt Count Lymph % (Auto) [place] % (Auto) Lymph # [place] # Seg Neutrophils % Seg Neuts % (Manual) Lymphocytes % (Manual) Monocytes % (Manual) Seg Neutrophils # Seg Neutrophils # Man Lymphocytes # (Manual) Monocytes # (Manual) PT INR APTT Heparin Anti-Xa Level POC ABG pH POC ABG pCO2 POC ABG pO2 Sodium Potassium Chloride Carbon Dioxide BUN Creatinine Glucose POC Glucose 136 H Lactic Acid Calcium Phosphorus Magnesium Iron TIBC AST ALT Alkaline Phosphatase Lactate Dehydrogenase Total Creatine Kinase C-Reactive Protein Total Protein Albumin Prealbumin CA 19-9 Antigen Folate PTH Intact Urine WBC (Auto) 10.0 H Urine Creatinine 41.2 H Urine Chloride 49.2 L Urine Total Protein 142 H Fluid Glucose Fluid Total Protein Vancomycin Trough Miscellaneous Test Crossmatch 06/11/18 06/12/18 06/12/18 18:35 00:34 04:12 WBC RBC 3.18 L Hgb 9.5 L Hct 28.7 L MCV MCHC RDW 18.5 H Plt Count Lymph % (Auto) 8.1 L [place] % (Auto) Lymph # 0.9 L [place] # Seg Neutrophils % 84.6 H Seg Neuts % (Manual) Lymphocytes % (Manual) Monocytes % (Manual) Seg Neutrophils # 9.1 H Seg Neutrophils # Man Lymphocytes # (Manual) Monocytes # (Manual) PT INR APTT Heparin Anti-Xa Level POC ABG pH POC ABG pCO2 POC ABG pO2 Sodium Potassium Chloride Carbon Dioxide BUN Creatinine Glucose POC Glucose 125 H 129 H Lactic Acid Calcium Phosphorus Magnesium Iron TIBC AST ALT Alkaline Phosphatase Lactate Dehydrogenase Total Creatine Kinase C-Reactive Protein Total Protein Albumin Prealbumin CA 19-9 Antigen Folate PTH Intact Urine WBC (Auto) Urine Creatinine Urine Chloride Urine Total Protein Fluid Glucose Fluid Total Protein Vancomycin Trough Miscellaneous Test Crossmatch 06/12/18 06/12/18 06/12/18 04:12 06:30 11:43 WBC RBC Hgb Hct MCV MCHC RDW Plt Count Lymph % (Auto) [place] % (Auto) Lymph # [place] # Seg Neutrophils % Seg Neuts % (Manual) Lymphocytes % (Manual) Monocytes % (Manual) Seg Neutrophils # Seg Neutrophils # Man Lymphocytes # (Manual) Monocytes # (Manual) PT INR APTT Heparin Anti-Xa Level POC ABG pH POC ABG pCO2 POC ABG pO2 Sodium Potassium Chloride 108.5 H Carbon Dioxide 21 L BUN 72 H Creatinine 3.0 H Glucose 122 H POC Glucose 129 H 126 H Lactic Acid Calcium 7.8 L Phosphorus Magnesium Iron TIBC AST 45 H ALT Alkaline Phosphatase 200 H Lactate Dehydrogenase Total Creatine Kinase 34 L C-Reactive Protein Total Protein Albumin 1.7 L Prealbumin CA 19-9 Antigen Folate PTH Intact Urine WBC (Auto) Urine Creatinine Urine Chloride Urine Total Protein Fluid Glucose Fluid Total Protein Vancomycin Trough Miscellaneous Test Crossmatch 06/12/18 06/12/18 06/13/18 16:00 23:56 03:44 WBC RBC Hgb Hct MCV MCHC RDW Plt Count Lymph % (Auto) [place] % (Auto) Lymph # [place] # Seg Neutrophils % Seg Neuts % (Manual) Lymphocytes % (Manual) Monocytes % (Manual) Seg Neutrophils # Seg Neutrophils # Man Lymphocytes # (Manual) Monocytes # (Manual) PT INR APTT Heparin Anti-Xa Level POC ABG pH POC ABG pCO2 POC ABG pO2 Sodium Potassium Chloride Carbon Dioxide BUN Creatinine Glucose POC Glucose 123 H 128 H 121 H Lactic Acid Calcium Phosphorus Magnesium Iron TIBC AST ALT Alkaline Phosphatase Lactate Dehydrogenase Total Creatine Kinase C-Reactive Protein Total Protein Albumin Prealbumin CA 19-9 Antigen Folate PTH Intact Urine WBC (Auto) Urine Creatinine Urine Chloride Urine Total Protein Fluid Glucose Fluid Total Protein Vancomycin Trough Miscellaneous Test Crossmatch 06/13/18 06/13/18 06/14/18 05:59 11:29 01:08 WBC RBC Hgb Hct MCV MCHC RDW Plt Count Lymph % (Auto) [place] % (Auto) Lymph # [place] # Seg Neutrophils % Seg Neuts % (Manual) Lymphocytes % (Manual) Monocytes % (Manual) Seg Neutrophils # Seg Neutrophils # Man Lymphocytes # (Manual) Monocytes # (Manual) PT INR APTT Heparin Anti-Xa Level POC ABG pH POC ABG pCO2 POC ABG pO2 Sodium 134 L Potassium Chloride Carbon Dioxide 20 L BUN 69 H Creatinine 2.9 H Glucose 113 H POC Glucose 124 H 128 H Lactic Acid Calcium 7.8 L Phosphorus Magnesium Iron TIBC AST ALT Alkaline Phosphatase Lactate Dehydrogenase Total Creatine Kinase C-Reactive Protein Total Protein Albumin Prealbumin CA 19-9 Antigen Folate PTH Intact Urine WBC (Auto) Urine Creatinine Urine Chloride Urine Total Protein Fluid Glucose Fluid Total Protein Vancomycin Trough Miscellaneous Test Crossmatch 06/14/18 06/14/18 06/14/18 06:42 06:42 09:50 WBC 11.3 H RBC 3.02 L Hgb 8.8 L Hct 27.3 L MCV MCHC RDW 18.6 H Plt Count Lymph % (Auto) [place] % (Auto) Lymph # [place] # Seg Neutrophils % Seg Neuts % (Manual) Lymphocytes % (Manual) Monocytes % (Manual) Seg Neutrophils # Seg Neutrophils # Man Lymphocytes # (Manual) Monocytes # (Manual) PT 16.3 H INR 1.24 H APTT Heparin Anti-Xa Level POC ABG pH POC ABG pCO2 POC ABG pO2 Sodium 132 L Potassium Chloride Carbon Dioxide 19 L BUN 71 H Creatinine 3.1 H Glucose POC Glucose Lactic Acid Calcium 7.8 L Phosphorus Magnesium Iron TIBC AST ALT Alkaline Phosphatase Lactate Dehydrogenase Total Creatine Kinase C-Reactive Protein Total Protein Albumin Prealbumin CA 19-9 Antigen Folate PTH Intact Urine WBC (Auto) Urine Creatinine Urine Chloride Urine Total Protein Fluid Glucose Fluid Total Protein Vancomycin Trough Miscellaneous Test Crossmatch 06/14/18 06/14/18 06/15/18 12:31 17:04 01:18 WBC RBC Hgb Hct MCV MCHC RDW Plt Count Lymph % (Auto) [place] % (Auto) Lymph # [place] # Seg Neutrophils % Seg Neuts % (Manual) Lymphocytes % (Manual) Monocytes % (Manual) Seg Neutrophils # Seg Neutrophils # Man Lymphocytes # (Manual) Monocytes # (Manual) PT INR APTT Heparin Anti-Xa Level POC ABG pH POC ABG pCO2 POC ABG pO2 Sodium Potassium Chloride Carbon Dioxide BUN Creatinine Glucose POC Glucose 125 H 109 H 124 H Lactic Acid Calcium Phosphorus Magnesium Iron TIBC AST ALT Alkaline Phosphatase Lactate Dehydrogenase Total Creatine Kinase C-Reactive Protein Total Protein Albumin Prealbumin CA 19-9 Antigen Folate PTH Intact Urine WBC (Auto) Urine Creatinine Urine Chloride Urine Total Protein Fluid Glucose Fluid Total Protein Vancomycin Trough Miscellaneous Test Crossmatch 06/15/18 06/15/18 06/15/18 05:27 06:34 11:42 WBC RBC Hgb Hct MCV MCHC RDW Plt Count Lymph % (Auto) [place] % (Auto) Lymph # [place] # Seg Neutrophils % Seg Neuts % (Manual) Lymphocytes % (Manual) Monocytes % (Manual) Seg Neutrophils # Seg Neutrophils # Man Lymphocytes # (Manual) Monocytes # (Manual) PT INR APTT Heparin Anti-Xa Level POC ABG pH POC ABG pCO2 POC ABG pO2 Sodium 134 L Potassium Chloride Carbon Dioxide 17 L BUN 77 H Creatinine 3.2 H Glucose 110 H POC Glucose 116 H 131 H Lactic Acid Calcium 8.1 L Phosphorus 6.20 H D Magnesium Iron TIBC AST ALT Alkaline Phosphatase Lactate Dehydrogenase Total Creatine Kinase C-Reactive Protein Total Protein Albumin Prealbumin CA 19-9 Antigen Folate PTH Intact Urine WBC (Auto) Urine Creatinine Urine Chloride Urine Total Protein Fluid Glucose Fluid Total Protein Vancomycin Trough Miscellaneous Test Crossmatch 06/16/18 06/16/18 06/16/18 00:57 05:10 06:07 WBC RBC Hgb Hct MCV MCHC RDW Plt Count Lymph % (Auto) [place] % (Auto) Lymph # [place] # Seg Neutrophils % Seg Neuts % (Manual) Lymphocytes % (Manual) Monocytes % (Manual) Seg Neutrophils # Seg Neutrophils # Man Lymphocytes # (Manual) Monocytes # (Manual) PT INR APTT Heparin Anti-Xa Level POC ABG pH POC ABG pCO2 POC ABG pO2 Sodium 132 L Potassium Chloride Carbon Dioxide 19 L BUN 83 H Creatinine 3.2 H Glucose 113 H POC Glucose 137 H 109 H Lactic Acid Calcium 7.8 L Phosphorus 6.10 H Magnesium Iron TIBC AST ALT Alkaline Phosphatase Lactate Dehydrogenase Total Creatine Kinase C-Reactive Protein Total Protein Albumin Prealbumin CA 19-9 Antigen Folate PTH Intact Urine WBC (Auto) Urine Creatinine Urine Chloride Urine Total Protein Fluid Glucose Fluid Total Protein Vancomycin Trough Miscellaneous Test Crossmatch 06/16/18 06/16/18 06/17/18 11:51 15:46 00:02 WBC RBC Hgb Hct MCV MCHC RDW Plt Count Lymph % (Auto) [place] % (Auto) Lymph # [place] # Seg Neutrophils % Seg Neuts % (Manual) Lymphocytes % (Manual) Monocytes % (Manual) Seg Neutrophils # Seg Neutrophils # Man Lymphocytes # (Manual) Monocytes # (Manual) PT INR APTT Heparin Anti-Xa Level POC ABG pH POC ABG pCO2 POC ABG pO2 Sodium Potassium Chloride Carbon Dioxide BUN Creatinine Glucose POC Glucose 126 H 127 H 107 H Lactic Acid Calcium Phosphorus Magnesium Iron TIBC AST ALT Alkaline Phosphatase Lactate Dehydrogenase Total Creatine Kinase C-Reactive Protein Total Protein Albumin Prealbumin CA 19-9 Antigen Folate PTH Intact Urine WBC (Auto) Urine Creatinine Urine Chloride Urine Total Protein Fluid Glucose Fluid Total Protein Vancomycin Trough Miscellaneous Test Crossmatch 06/17/18 06/17/18 06/17/18 05:52 11:46 16:58 WBC RBC Hgb Hct MCV MCHC RDW Plt Count Lymph % (Auto) [place] % (Auto) Lymph # [place] # Seg Neutrophils % Seg Neuts % (Manual) Lymphocytes % (Manual) Monocytes % (Manual) Seg Neutrophils # Seg Neutrophils # Man Lymphocytes # (Manual) Monocytes # (Manual) PT INR APTT Heparin Anti-Xa Level POC ABG pH POC ABG pCO2 POC ABG pO2 Sodium 133 L Potassium Chloride Carbon Dioxide 17 L BUN 87 H Creatinine 3.2 H Glucose POC Glucose 129 H 140 H Lactic Acid Calcium 8.1 L Phosphorus 6.50 H Magnesium Iron TIBC AST ALT Alkaline Phosphatase Lactate Dehydrogenase Total Creatine Kinase C-Reactive Protein Total Protein Albumin Prealbumin 0.130 L CA 19-9 Antigen Folate PTH Intact Urine WBC (Auto) Urine Creatinine Urine Chloride Urine Total Protein Fluid Glucose Fluid Total Protein Vancomycin Trough Miscellaneous Test Crossmatch 06/18/18 06/18/18 06/18/18 04:04 04:04 14:15 WBC RBC 3.00 L Hgb 8.9 L Hct 26.5 L MCV MCHC RDW 17.8 H Plt Count 494 H Lymph % (Auto) 7.9 L [place] % (Auto) 9.3 H Lymph # 0.8 L [place] # 1.0 H Seg Neutrophils % 81.2 H Seg Neuts % (Manual) Lymphocytes % (Manual) Monocytes % (Manual) Seg Neutrophils # 8.6 H Seg Neutrophils # Man Lymphocytes # (Manual) Monocytes # (Manual) PT INR APTT Heparin Anti-Xa Level POC ABG pH POC ABG pCO2 POC ABG pO2 Sodium 128 L Potassium Chloride Carbon Dioxide 18 L BUN 88 H Creatinine 3.1 H Glucose 129 H POC Glucose 143 H Lactic Acid Calcium 7.8 L Phosphorus 6.20 H Magnesium Iron TIBC AST ALT Alkaline Phosphatase Lactate Dehydrogenase Total Creatine Kinase C-Reactive Protein Total Protein Albumin Prealbumin CA 19-9 Antigen Folate PTH Intact Urine WBC (Auto) Urine Creatinine Urine Chloride Urine Total Protein Fluid Glucose Fluid Total Protein Vancomycin Trough Miscellaneous Test Crossmatch 06/18/18 06/19/18 06/19/18 17:54 01:45 06:20 WBC RBC Hgb Hct MCV MCHC RDW Plt Count Lymph % (Auto) [place] % (Auto) Lymph # [place] # Seg Neutrophils % Seg Neuts % (Manual) Lymphocytes % (Manual) Monocytes % (Manual) Seg Neutrophils # Seg Neutrophils # Man Lymphocytes # (Manual) Monocytes # (Manual) PT INR APTT Heparin Anti-Xa Level POC ABG pH POC ABG pCO2 POC ABG pO2 Sodium Potassium Chloride 93.9 L Carbon Dioxide BUN 78 H Creatinine 2.8 H Glucose POC Glucose 138 H 141 H Lactic Acid Calcium 7.1 L Phosphorus 6.40 H Magnesium Iron TIBC AST ALT Alkaline Phosphatase Lactate Dehydrogenase Total Creatine Kinase C-Reactive Protein Total Protein Albumin Prealbumin CA 19-9 Antigen Folate PTH Intact Urine WBC (Auto) Urine Creatinine Urine Chloride Urine Total Protein Fluid Glucose Fluid Total Protein Vancomycin Trough Miscellaneous Test Crossmatch 06/19/18 06/19/18 06/19/18 06:49 07:59 16:32 WBC RBC Hgb Hct MCV MCHC RDW Plt Count Lymph % (Auto) [place] % (Auto) Lymph # [place] # Seg Neutrophils % Seg Neuts % (Manual) Lymphocytes % (Manual) Monocytes % (Manual) Seg Neutrophils # Seg Neutrophils # Man Lymphocytes # (Manual) Monocytes # (Manual) PT INR APTT Heparin Anti-Xa Level POC ABG pH POC ABG pCO2 POC ABG pO2 Sodium Potassium Chloride Carbon Dioxide BUN 80 H Creatinine 2.9 H Glucose 123 H POC Glucose 130 H 134 H Lactic Acid Calcium 7.7 L Phosphorus Magnesium Iron TIBC AST ALT Alkaline Phosphatase Lactate Dehydrogenase Total Creatine Kinase C-Reactive Protein Total Protein Albumin Prealbumin CA 19-9 Antigen Folate PTH Intact Urine WBC (Auto) Urine Creatinine Urine Chloride Urine Total Protein Fluid Glucose Fluid Total Protein Vancomycin Trough Miscellaneous Test Crossmatch 06/20/18 06/20/18 06/20/18 00:11 05:55 05:55 WBC RBC 2.73 L Hgb 8.0 L Hct 24.2 L MCV MCHC RDW 17.4 H Plt Count 512 H Lymph % (Auto) 12.3 L [place] % (Auto) 11.3 H Lymph # 1.1 L [place] # 1.0 H Seg Neutrophils % 74.8 H Seg Neuts % (Manual) Lymphocytes % (Manual) Monocytes % (Manual) Seg Neutrophils # Seg Neutrophils # Man Lymphocytes # (Manual) Monocytes # (Manual) PT INR APTT Heparin Anti-Xa Level POC ABG pH POC ABG pCO2 POC ABG pO2 Sodium Potassium Chloride Carbon Dioxide 32 H BUN 70 H Creatinine 2.5 H Glucose 105 H POC Glucose 131 H Lactic Acid Calcium 8.0 L Phosphorus Magnesium Iron TIBC AST ALT Alkaline Phosphatase Lactate Dehydrogenase Total Creatine Kinase C-Reactive Protein Total Protein Albumin Prealbumin CA 19-9 Antigen Folate PTH Intact Urine WBC (Auto) Urine Creatinine Urine Chloride Urine Total Protein Fluid Glucose Fluid Total Protein Vancomycin Trough Miscellaneous Test Crossmatch 06/20/18 06/20/18 06/20/18 05:55 12:10 16:01 WBC RBC Hgb Hct MCV MCHC RDW Plt Count Lymph % (Auto) [place] % (Auto) Lymph # [place] # Seg Neutrophils % Seg Neuts % (Manual) Lymphocytes % (Manual) Monocytes % (Manual) Seg Neutrophils # Seg Neutrophils # Man Lymphocytes # (Manual) Monocytes # (Manual) PT INR APTT Heparin Anti-Xa Level POC ABG pH POC ABG pCO2 POC ABG pO2 Sodium Potassium Chloride Carbon Dioxide BUN Creatinine Glucose POC Glucose 112 H 127 H 145 H Lactic Acid Calcium Phosphorus Magnesium Iron TIBC AST ALT Alkaline Phosphatase Lactate Dehydrogenase Total Creatine Kinase C-Reactive Protein Total Protein Albumin Prealbumin CA 19-9 Antigen Folate PTH Intact Urine WBC (Auto) Urine Creatinine Urine Chloride Urine Total Protein Fluid Glucose Fluid Total Protein Vancomycin Trough Miscellaneous Test Crossmatch 06/20/18 06/21/18 06/21/18 23:54 05:50 05:50 WBC RBC 2.57 L Hgb 7.7 L Hct 26.6 L MCV 104 H MCHC 29 L RDW 19.1 H Plt Count 521 H Lymph % (Auto) 10.0 L [place] % (Auto) 7.4 H Lymph # 1.0 L [place] # Seg Neutrophils % 81.3 H Seg Neuts % (Manual) Lymphocytes % (Manual) Monocytes % (Manual) Seg Neutrophils # 7.9 H Seg Neutrophils # Man Lymphocytes # (Manual) Monocytes # (Manual) PT INR APTT Heparin Anti-Xa Level POC ABG pH POC ABG pCO2 POC ABG pO2 Sodium Potassium 5.8 H D Chloride 90.3 L Carbon Dioxide 37 H BUN 57 H Creatinine 1.9 H Glucose POC Glucose 154 H Lactic Acid Calcium 7.3 L Phosphorus Magnesium Iron TIBC AST 50 H ALT Alkaline Phosphatase 190 H Lactate Dehydrogenase Total Creatine Kinase C-Reactive Protein Total Protein Albumin 1.8 L Prealbumin CA 19-9 Antigen Folate PTH Intact Urine WBC (Auto) Urine Creatinine Urine Chloride Urine Total Protein Fluid Glucose Fluid Total Protein Vancomycin Trough Miscellaneous Test Crossmatch 06/21/18 06/21/18 06/21/18 06:57 13:37 17:00 WBC RBC Hgb Hct MCV MCHC RDW Plt Count Lymph % (Auto) [place] % (Auto) Lymph # [place] # Seg Neutrophils % Seg Neuts % (Manual) Lymphocytes % (Manual) Monocytes % (Manual) Seg Neutrophils # Seg Neutrophils # Man Lymphocytes # (Manual) Monocytes # (Manual) PT INR APTT Heparin Anti-Xa Level POC ABG pH POC ABG pCO2 POC ABG pO2 Sodium Potassium Chloride Carbon Dioxide BUN Creatinine Glucose 111 H POC Glucose 141 H 148 H Lactic Acid Calcium Phosphorus Magnesium Iron TIBC AST ALT Alkaline Phosphatase Lactate Dehydrogenase Total Creatine Kinase C-Reactive Protein Total Protein Albumin Prealbumin CA 19-9 Antigen Folate PTH Intact Urine WBC (Auto) Urine Creatinine Urine Chloride Urine Total Protein Fluid Glucose Fluid Total Protein Vancomycin Trough Miscellaneous Test Crossmatch 06/21/18 06/21/18 06/22/18 17:27 22:01 06:02 WBC RBC Hgb Hct MCV MCHC RDW Plt Count Lymph % (Auto) [place] % (Auto) Lymph # [place] # Seg Neutrophils % Seg Neuts % (Manual) Lymphocytes % (Manual) Monocytes % (Manual) Seg Neutrophils # Seg Neutrophils # Man Lymphocytes # (Manual) Monocytes # (Manual) PT INR APTT Heparin Anti-Xa Level POC ABG pH POC ABG pCO2 POC ABG pO2 Sodium Potassium 3.2 L Chloride Carbon Dioxide 39 H BUN 53 H Creatinine 1.9 H Glucose 1348 H* POC Glucose 130 H 122 H Lactic Acid Calcium 7.5 L Phosphorus Magnesium Iron TIBC AST ALT Alkaline Phosphatase Lactate Dehydrogenase Total Creatine Kinase C-Reactive Protein Total Protein Albumin Prealbumin CA 19-9 Antigen Folate PTH Intact Urine WBC (Auto) Urine Creatinine Urine Chloride Urine Total Protein Fluid Glucose Fluid Total Protein Vancomycin Trough Miscellaneous Test Crossmatch 06/22/18 06/22/18 06/22/18 06:16 07:26 07:48 WBC RBC Hgb Hct MCV MCHC RDW Plt Count Lymph % (Auto) [place] % (Auto) Lymph # [place] # Seg Neutrophils % Seg Neuts % (Manual) Lymphocytes % (Manual) Monocytes % (Manual) Seg Neutrophils # Seg Neutrophils # Man Lymphocytes # (Manual) Monocytes # (Manual) PT INR APTT Heparin Anti-Xa Level POC ABG pH POC ABG pCO2 POC ABG pO2 Sodium Potassium Chloride Carbon Dioxide 37 H BUN 57 H Creatinine 1.9 H Glucose 147 H POC Glucose 148 H 153 H Lactic Acid Calcium 8.3 L Phosphorus Magnesium Iron TIBC AST ALT Alkaline Phosphatase Lactate Dehydrogenase Total Creatine Kinase C-Reactive Protein Total Protein Albumin Prealbumin CA 19-9 Antigen Folate PTH Intact Urine WBC (Auto) Urine Creatinine Urine Chloride Urine Total Protein Fluid Glucose Fluid Total Protein Vancomycin Trough Miscellaneous Test Crossmatch 06/22/18 06/22/18 06/22/18 11:26 16:26 23:57 WBC RBC Hgb Hct MCV MCHC RDW Plt Count Lymph % (Auto) [place] % (Auto) Lymph # [place] # Seg Neutrophils % Seg Neuts % (Manual) Lymphocytes % (Manual) Monocytes % (Manual) Seg Neutrophils # Seg Neutrophils # Man Lymphocytes # (Manual) Monocytes # (Manual) PT INR APTT Heparin Anti-Xa Level POC ABG pH POC ABG pCO2 POC ABG pO2 Sodium Potassium Chloride Carbon Dioxide BUN Creatinine Glucose POC Glucose 121 H 122 H 180 H Lactic Acid Calcium Phosphorus Magnesium Iron TIBC AST ALT Alkaline Phosphatase Lactate Dehydrogenase Total Creatine Kinase C-Reactive Protein Total Protein Albumin Prealbumin CA 19-9 Antigen Folate PTH Intact Urine WBC (Auto) Urine Creatinine Urine Chloride Urine Total Protein Fluid Glucose Fluid Total Protein Vancomycin Trough Miscellaneous Test Crossmatch 06/22/18 06/23/18 06/23/18 23:57 00:30 01:40 WBC RBC Hgb Hct MCV MCHC RDW Plt Count Lymph % (Auto) [place] % (Auto) Lymph # [place] # Seg Neutrophils % Seg Neuts % (Manual) Lymphocytes % (Manual) Monocytes % (Manual) Seg Neutrophils # Seg Neutrophils # Man Lymphocytes # (Manual) Monocytes # (Manual) PT INR APTT Heparin Anti-Xa Level POC ABG pH 7.195 L 7.235 L POC ABG pCO2 105.2 H 95.7 H POC ABG pO2 Sodium Potassium Chloride Carbon Dioxide BUN Creatinine Glucose POC Glucose Lactic Acid Calcium Phosphorus Magnesium Iron TIBC AST ALT Alkaline Phosphatase Lactate Dehydrogenase Total Creatine Kinase C-Reactive Protein Total Protein Albumin Prealbumin CA 19-9 Antigen Folate PTH Intact Urine WBC (Auto) Urine Creatinine 99.7 H Urine Chloride 10.0 L Urine Total Protein 272 H Fluid Glucose Fluid Total Protein Vancomycin Trough Miscellaneous Test Crossmatch 06/23/18 06/23/18 06/23/18 05:58 07:20 08:31 WBC 16.0 H RBC 2.35 L Hgb 6.7 L Hct 22.3 L MCV 95 H MCHC 30 L RDW 18.5 H Plt Count 512 H Lymph % (Auto) [place] % (Auto) Lymph # [place] # Seg Neutrophils % Seg Neuts % (Manual) Lymphocytes % (Manual) Monocytes % (Manual) Seg Neutrophils # Seg Neutrophils # Man Lymphocytes # (Manual) Monocytes # (Manual) PT INR APTT Heparin Anti-Xa Level POC ABG pH POC ABG pCO2 POC ABG pO2 Sodium Potassium Chloride Carbon Dioxide BUN Creatinine Glucose POC Glucose 116 H 123 H Lactic Acid Calcium Phosphorus Magnesium Iron TIBC AST ALT Alkaline Phosphatase Lactate Dehydrogenase Total Creatine Kinase C-Reactive Protein Total Protein Albumin Prealbumin CA 19-9 Antigen Folate PTH Intact Urine WBC (Auto) Urine Creatinine Urine Chloride Urine Total Protein Fluid Glucose Fluid Total Protein Vancomycin Trough Miscellaneous Test Crossmatch 06/23/18 06/23/18 06/23/18 08:31 08:34 08:34 WBC RBC Hgb Hct MCV MCHC RDW Plt Count 485 H Lymph % (Auto) [place] % (Auto) Lymph # [place] # Seg Neutrophils % Seg Neuts % (Manual) Lymphocytes % (Manual) Monocytes % (Manual) Seg Neutrophils # Seg Neutrophils # Man Lymphocytes # (Manual) Monocytes # (Manual) PT 15.2 H INR 1.15 H APTT 41.9 H Heparin Anti-Xa Level POC ABG pH POC ABG pCO2 POC ABG pO2 Sodium 148 H Potassium Chloride Carbon Dioxide BUN 59 H Creatinine 2.2 H Glucose 106 H POC Glucose Lactic Acid Calcium 8.2 L Phosphorus 6.60 H Magnesium Iron TIBC AST 46 H ALT Alkaline Phosphatase 188 H Lactate Dehydrogenase Total Creatine Kinase C-Reactive Protein Total Protein Albumin 1.6 L Prealbumin CA 19-9 Antigen Folate PTH Intact Urine WBC (Auto) Urine Creatinine Urine Chloride Urine Total Protein Fluid Glucose Fluid Total Protein Vancomycin Trough Miscellaneous Test Crossmatch 06/23/18 06/23/18 06/23/18 09:29 09:40 09:43 WBC RBC Hgb Hct MCV MCHC RDW Plt Count Lymph % (Auto) [place] % (Auto) Lymph # [place] # Seg Neutrophils % Seg Neuts % (Manual) Lymphocytes % (Manual) Monocytes % (Manual) Seg Neutrophils # Seg Neutrophils # Man Lymphocytes # (Manual) Monocytes # (Manual) PT INR APTT Heparin Anti-Xa Level POC ABG pH 7.521 H POC ABG pCO2 53.6 H 48.4 H POC ABG pO2 37 L 181 H Sodium Potassium Chloride Carbon Dioxide BUN Creatinine Glucose POC Glucose Lactic Acid Calcium Phosphorus Magnesium Iron TIBC AST ALT Alkaline Phosphatase Lactate Dehydrogenase Total Creatine Kinase C-Reactive Protein Total Protein Albumin Prealbumin CA 19-9 Antigen Folate PTH Intact Urine WBC (Auto) Urine Creatinine Urine Chloride Urine Total Protein Fluid Glucose Fluid Total Protein Vancomycin Trough Miscellaneous Test Crossmatch See Detail 06/23/18 06/23/18 06/23/18 17:03 17:03 18:33 WBC 22.2 H RBC 2.85 L Hgb 8.4 L Hct 25.6 L MCV MCHC RDW 17.6 H Plt Count 515 H Lymph % (Auto) [place] % (Auto) Lymph # [place] # Seg Neutrophils % Seg Neuts % (Manual) Lymphocytes % (Manual) Monocytes % (Manual) Seg Neutrophils # Seg Neutrophils # Man Lymphocytes # (Manual) Monocytes # (Manual) PT INR APTT Heparin Anti-Xa Level 0.13 L POC ABG pH POC ABG pCO2 POC ABG pO2 Sodium Potassium Chloride Carbon Dioxide BUN Creatinine Glucose POC Glucose < 40 L Lactic Acid Calcium Phosphorus Magnesium Iron TIBC AST ALT Alkaline Phosphatase Lactate Dehydrogenase Total Creatine Kinase C-Reactive Protein Total Protein Albumin Prealbumin CA 19-9 Antigen Folate PTH Intact Urine WBC (Auto) Urine Creatinine Urine Chloride Urine Total Protein Fluid Glucose Fluid Total Protein Vancomycin Trough Miscellaneous Test Crossmatch 06/23/18 06/23/18 06/24/18 23:53 Unknown 00:30 WBC RBC Hgb Hct MCV MCHC RDW Plt Count Lymph % (Auto) [place] % (Auto) Lymph # [place] # Seg Neutrophils % Seg Neuts % (Manual) Lymphocytes % (Manual) Monocytes % (Manual) Seg Neutrophils # Seg Neutrophils # Man Lymphocytes # (Manual) Monocytes # (Manual) PT INR APTT Heparin Anti-Xa Level POC ABG pH POC ABG pCO2 POC ABG pO2 Sodium 148 H Potassium Chloride Carbon Dioxide 36 H BUN 57 H Creatinine 1.9 H Glucose POC Glucose 140 H Lactic Acid Calcium 8.3 L Phosphorus Magnesium Iron TIBC AST ALT Alkaline Phosphatase Lactate Dehydrogenase Total Creatine Kinase C-Reactive Protein Total Protein Albumin Prealbumin CA 19-9 Antigen Folate PTH Intact Urine WBC (Auto) 8.0 H Urine Creatinine Urine Chloride Urine Total Protein Fluid Glucose Fluid Total Protein Vancomycin Trough Miscellaneous Test Crossmatch 06/24/18 06/24/18 06/24/18 00:40 04:30 04:30 WBC 26.9 H RBC 2.79 L Hgb 8.1 L Hct 25.0 L MCV MCHC RDW 17.5 H Plt Count 487 H Lymph % (Auto) [place] % (Auto) Lymph # [place] # Seg Neutrophils % Seg Neuts % (Manual) Lymphocytes % (Manual) 6.0 L Monocytes % (Manual) 8.0 H Seg Neutrophils # Seg Neutrophils # Man 16.9 H Lymphocytes # (Manual) Monocytes # (Manual) 2.2 H PT INR APTT Heparin Anti-Xa Level 0.13 L POC ABG pH POC ABG pCO2 POC ABG pO2 Sodium 151 H Potassium Chloride Carbon Dioxide 36 H D BUN 74 H Creatinine 2.9 H Glucose 126 H POC Glucose Lactic Acid Calcium 8.2 L Phosphorus Magnesium Iron TIBC AST ALT Alkaline Phosphatase Lactate Dehydrogenase Total Creatine Kinase C-Reactive Protein Total Protein Albumin Prealbumin CA 19-9 Antigen Folate PTH Intact Urine WBC (Auto) Urine Creatinine Urine Chloride Urine Total Protein Fluid Glucose Fluid Total Protein Vancomycin Trough Miscellaneous Test Crossmatch 06/24/18 06/24/18 06/24/18 04:33 06:41 08:00 WBC RBC Hgb Hct MCV MCHC RDW Plt Count Lymph % (Auto) [place] % (Auto) Lymph # [place] # Seg Neutrophils % Seg Neuts % (Manual) Lymphocytes % (Manual) Monocytes % (Manual) Seg Neutrophils # Seg Neutrophils # Man Lymphocytes # (Manual) Monocytes # (Manual) PT INR APTT Heparin Anti-Xa Level 0.21 L POC ABG pH 7.517 H POC ABG pCO2 50.9 H POC ABG pO2 170 H Sodium Potassium Chloride Carbon Dioxide BUN Creatinine Glucose POC Glucose 140 H Lactic Acid Calcium Phosphorus Magnesium Iron TIBC AST ALT Alkaline Phosphatase Lactate Dehydrogenase Total Creatine Kinase C-Reactive Protein Total Protein Albumin Prealbumin CA 19-9 Antigen Folate PTH Intact Urine WBC (Auto) Urine Creatinine Urine Chloride Urine Total Protein Fluid Glucose Fluid Total Protein Vancomycin Trough Miscellaneous Test Crossmatch Chest x-ray: image reviewed (ETT in good position, bilateral pleural effusion) Allied health notes reviewed: RT
[2018-06-24] MEDS ORDERED: CATAPRES FEEDTUBE STA (11:19)
[2018-06-24] MEDS ORDERED: APRESOLINE FEEDTUBE STA (11:20)
[2018-06-24] MEDS: APRESOLINE FEEDTUBE SCH ×2 (11:41→21:25)
[2018-06-24] MEDS ORDERED: CARDENE 50 MG in NACL 0.9% 250ML 230 ML IV SCH (12:00)
[2018-06-24] MEDS ORDERED: LASIX 80 MG in NACL 0.9% 50 ML IV STA (12:12)
[2018-06-24] MEDS ORDERED: LASIX ONE (12:19)
[2018-06-24] MEDS ORDERED: LASIX IV ONE (13:00)
[2018-06-24] MEDS ORDERED: SODIUM BICARBONATE FEEDTUBE PRN (13:34)
[2018-06-24] MEDS ORDERED: SIMPLE SYRUP FEEDTUBE PRN ×2 (13:34)
[2018-06-24] MEDS ORDERED: PANCREAZE DR 10,500 UNIT FEEDTUBE PRN (13:34)
[2018-06-24] MEDS: LOPRESSOR IV SCH ×2 (14:15→17:59)
[2018-06-24] MEDS ORDERED: ATIVAN IV PRN (14:15)
--- NOTE | 2018-06-24 15:24 | Consultation ---
History of Present Illness Consult date: 06/24/18 Requesting physician: CODY HACKETT Reason for Consult: anoxic brain injury History of present illness: This is a 52 yr old male with the following list of problems, admitted originally on 05/13 for bilateral leg edema and renal failure. He has since been found to have - Acute hypoxic -hypercapnic respiratory failure on MVS Cardiopulmonary arrest, ROSC in over 30 minutes occurred yesterday, 06/23. 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 Freeman. In the setting of his evaluation, the patient suffered a respiratory arrest and underwent resuscitation efforts for 30 min. before developing a rhythm. He was brought to the ICU. At present he is unresponsive and on the ventilator. We are asked to Evaluate him. Past History Past Medical History: No medical history Past Surgical History: No surgical history Social history: single, Lives alone, smoking (Smokes 1 pack cigarettes daily), full code, other (Alcohol once to twice a week) Family history: no significant family history Medications and Allergies Allergies Allergy/AdvReac Type Severity Reaction Status Date / Time No Known Allergies Allergy Verified 10/31/16 11:50 Home Medications Medication Instructions Recorded Confirmed Last Taken Type Acetaminophen [Acetaminophen 650 mg WI Q6H PRN supp.rect 06/15/18 Unknown Rx SUPPOS] Acetaminophen [Acetaminophen TAB] 650 mg PO Q6H PRN tablet 06/15/18 Unknown Rx Ferrous Sulfate [Ferrous Sulfate 300 mg PO BID oral.liqd 06/15/18 Unknown Rx Oral Liq 300 Mg/5 Ml] Folic Acid [Folvite] 1 mg PO QDAY tablet 06/15/18 Unknown Rx Labetalol [Normodyne TAB] 200 mg PO TID tablet 06/15/18 Unknown Rx cloNIDine-TTS PATCH [Catapres-Tts 0.6 mg TD Tu patch 06/15/18 Unknown Rx Patch] hydrALAZINE [Apresoline INJ] 20 mg IV Q4HR PRN vial 06/15/18 Unknown Rx hydrALAZINE [Apresoline TAB] 100 mg PO Q8HR tab 06/15/18 Unknown Rx Active Meds: Active Medications Acetaminophen (Tylenol) 650 mg WI Q6H PRN PRN Reason: Pain, Mild (1-3) Last Admin: 05/26/18 00:06 Dose: 650 mg Acetaminophen (Tylenol) 650 mg PO Q6H PRN PRN Reason: Pain, Mild (1-3) Last Admin: 06/18/18 13:47 Dose: 650 mg Lipase/Protease/Amylase (Pancreaze Dr 10,500 Unit) 1 each FEEDTUBE PRN PRN PRN Reason: For Clogged Feeding Tube Clonidine HCl (Catapres-Tts Patch) 0.6 mg TD Fr [facility] Last Admin: 06/24/18 11:47 Dose: 0.6 mg Dextrose (D50w (25gm) Syringe) 50 ml IV PRN PRN PRN Reason: Hypoglycemia Last Admin: 06/23/18 18:42 Dose: 50 ml Famotidine (Pepcid) 20 mg IV DAILY [facility] Last Admin: 06/24/18 09:19 Dose: 20 mg Ferrous Sulfate (Ferrous Sulfate) 300 mg PO BID [facility] Last Admin: 06/24/18 09:19 Dose: 300 mg Folic Acid (Folvite) 1 mg PO QDAY [facility] Last Admin: 06/24/18 09:19 Dose: 1 mg Hydralazine HCl (Apresoline) 20 mg IV Q4HR PRN PRN Reason: For SBP>170 or DBP>110 Last Admin: 06/24/18 07:34 Dose: 20 mg Hydralazine HCl (Apresoline) 100 mg FEEDTUBE Q8HR [facility] Last Admin: 06/24/18 11:41 Dose: 100 mg Piperacillin Sod/Tazobactam Sod (Zosyn/Ns 2.25 Gm/50ml) 2.25 gm in 50 mls @ 100 mls/hr IV Q12HR [facility]; Protocol Stop: 06/24/18 22:29 Last Admin: 06/24/18 09:19 Dose: 100 mls/hr Sodium Chloride (Nacl 0.45% 1000 Ml) 1,000 mls @ 60 mls/hr IV DIRECT [facility] Last Infusion: 06/23/18 00:18 Dose: Infused Heparin Sodium/Sodium Chloride (Heparin/ 0.45% Nacl-25,000 Unit/500 Ml) 25,000 unit in 500 mls @ 20 mls/hr IV TITR [facility]; Protocol Last Titration: 06/24/18 15:09 Dose: 1,350 units/hr, 27 mls/hr Norepinephrine (Levophed Drip 4 Mg/Ns 250 Ml) 4 mg in 250 mls @ 7.5 mls/hr IV TITR JAC; Protocol Last Titration: 06/23/18 10:30 Dose: 2 mcg/min, 7.5 mls/hr Vasopressin 20 unit/ Sodium (Chloride) 101 mls @ 9.09 mls/hr IV TITR JAC; Protocol Last Admin: 06/23/18 10:57 Dose: 0.03 units/min, 9.09 mls/hr Amino Acids/Electrolytes/Dextrose (Tpn Adult) 2,016 mls @ 84 mls/hr IV DAILY@ 1999 [facility]; Protocol Stop: 06/24/18 19:59 Last Admin: 06/23/18 20:51 Dose: 84 mls/hr Nicardipine HCl 50 mg/ Sodium (Chloride) 250 mls @ 25 mls/hr IV TITR JAC; Protocol Last Titration: 06/24/18 13:13 Dose: 0 mg/hr, 0 mls/hr Amino Acids/Electrolytes/Dextrose (Tpn Adult) 2,016 mls @ 84 mls/hr IV DAILY@ 2000 [facility]; Protocol Stop: 06/25/18 19:59 Insulin Human Regular (Humulin R) 0 units SUB-Q Q6HR [facility]; Protocol Last Admin: 06/24/18 12:29 Dose: 3 units Lorazepam (Ativan) 1 mg IV Q4H PRN PRN Reason: Anxiety Last Admin: 06/22/18 23:53 Dose: 1 mg Lorazepam (Ativan) 1 mg IV Q1H PRN PRN Reason: Seizures Metoprolol Tartrate (Lopressor) 5 mg IV Q6HR [facility] Last Admin: 06/24/18 14:15 Dose: 5 mg Morphine Sulfate (Morphine) 2 mg IV Q4H PRN PRN Reason: Pain, Moderate (4-6) Last Admin: 06/22/18 22:23 Dose: 2 mg Simple Syrup (Simple Syrup) 15 ml FEEDTUBE PRN PRN PRN Reason: Hypoglycemia Simple Syrup (Simple Syrup) 30 ml FEEDTUBE PRN PRN PRN Reason: Hypoglycemia Sodium Bicarbonate (Sodium Bicarbonate) 325 mg FEEDTUBE PRN PRN PRN Reason: For Clogged Feeding Tube Review of Systems ROS unobtainable: due to endotracheal tube Physical Examination - Vital Signs Vital Signs: Vital Signs Temp Pulse Resp BP Pulse Ox 97.8 F 99 H 16 198/120 98 05/13/18 04:09 05/13/18 04:09 05/13/18 04:09 05/13/18 04:09 05/13/18 04:09 - Physical Exam Narrative exam: Neurological - eyes closed, no spontaneous movement. 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 corneal reflex is absent bilaterally. t there is no gag reflex. Motor - no withdrawal or movement to deep pain stimuli. Reflexes - absent. Sensory - no response to deep pain. Results - Laboratory Findings CBC and BMP: 06/24/18 04:30 06/24/18 04:30 Abnormal Lab Findings: Abnormal Labs 05/13/18 05/13/18 05/13/18 04:27 04:27 19:39 WBC RBC 3.13 L Hgb 9.4 L Hct 26.8 L MCV MCHC 35 H RDW Plt Count Lymph % (Auto) Price % (Auto) 9.6 H Lymph # Price # Seg Neutrophils % Seg Neuts % (Manual) Lymphocytes % (Manual) Monocytes % (Manual) Seg Neutrophils # Seg Neutrophils # Man Lymphocytes # (Manual) Monocytes # (Manual) PT INR APTT Heparin Anti-Xa Level POC ABG pH POC ABG pCO2 POC ABG pO2 Sodium 132 L Potassium 5.5 H Chloride 94.1 L Carbon Dioxide 19 L BUN 72 H Creatinine 14.4 H Glucose POC Glucose Lactic Acid Calcium Phosphorus Magnesium Iron TIBC AST ALT Alkaline Phosphatase Lactate Dehydrogenase Total Creatine Kinase C-Reactive Protein Total Protein Albumin 2.8 L Prealbumin CA 19-9 Antigen Folate PTH Intact Urine WBC (Auto) Urine Creatinine 66.0 H Urine Chloride 27.8 L Urine Total Protein 24 H Fluid Glucose Fluid Total Protein Vancomycin Trough Miscellaneous Test Crossmatch 05/13/18 05/14/18 05/14/18 20:00 05:05 05:05 WBC RBC Hgb Hct MCV MCHC RDW Plt Count Lymph % (Auto) Price % (Auto) Lymph # Price # Seg Neutrophils % Seg Neuts % (Manual) Lymphocytes % (Manual) Monocytes % (Manual) Seg Neutrophils # Seg Neutrophils # Man Lymphocytes # (Manual) Monocytes # (Manual) PT INR APTT Heparin Anti-Xa Level POC ABG pH POC ABG pCO2 POC ABG pO2 Sodium 132 L 131 L Potassium 5.2 H 5.8 H Chloride 93.0 L 95.6 L Carbon Dioxide 19 L 20 L BUN 74 H 81 H Creatinine 15.0 H 16.6 H Glucose 134 H 127 H POC Glucose Lactic Acid Calcium 8.2 L 7.9 L Phosphorus 6.30 H Magnesium Iron TIBC AST ALT Alkaline Phosphatase Lactate Dehydrogenase Total Creatine Kinase 236 H C-Reactive Protein Total Protein Albumin Prealbumin CA 19-9 Antigen Folate PTH Intact 65.37 H Urine WBC (Auto) Urine Creatinine Urine Chloride Urine Total Protein Fluid Glucose Fluid Total Protein Vancomycin Trough Miscellaneous Test Crossmatch 05/14/18 05/14/18 05/14/18 09:28 10:56 13:29 WBC RBC Hgb Hct MCV MCHC RDW Plt Count Lymph % (Auto) Price % (Auto) Lymph # Price # Seg Neutrophils % Seg Neuts % (Manual) Lymphocytes % (Manual) Monocytes % (Manual) Seg Neutrophils # Seg Neutrophils # Man Lymphocytes # (Manual) Monocytes # (Manual) PT INR APTT 38.2 H Heparin Anti-Xa Level POC ABG pH POC ABG pCO2 POC ABG pO2 Sodium Potassium Chloride Carbon Dioxide BUN Creatinine Glucose POC Glucose 127 H 126 H Lactic Acid Calcium Phosphorus Magnesium Iron TIBC AST ALT Alkaline Phosphatase Lactate Dehydrogenase Total Creatine Kinase C-Reactive Protein Total Protein Albumin Prealbumin CA 19-9 Antigen Folate PTH Intact Urine WBC (Auto) Urine Creatinine Urine Chloride Urine Total Protein Fluid Glucose Fluid Total Protein Vancomycin Trough Miscellaneous Test Crossmatch 05/15/18 05/15/18 05/16/18 08:06 08:06 07:02 WBC RBC 2.84 L 2.74 L Hgb 8.5 L 8.5 L Hct 24.2 L 23.5 L MCV MCHC 35 H 36 H RDW Plt Count Lymph % (Auto) Price % (Auto) 10.4 H 11.0 H Lymph # 1.1 L Price # 0.9 H Seg Neutrophils % 72.6 H Seg Neuts % (Manual) Lymphocytes % (Manual) Monocytes % (Manual) Seg Neutrophils # Seg Neutrophils # Man Lymphocytes # (Manual) Monocytes # (Manual) PT INR APTT Heparin Anti-Xa Level POC ABG pH POC ABG pCO2 POC ABG pO2 Sodium Potassium Chloride Carbon Dioxide 19 L BUN 66 H Creatinine 12.0 H Glucose 115 H POC Glucose Lactic Acid Calcium 8.1 L Phosphorus Magnesium Iron TIBC AST ALT Alkaline Phosphatase Lactate Dehydrogenase Total Creatine Kinase C-Reactive Protein Total Protein Albumin Prealbumin CA 19-9 Antigen Folate PTH Intact Urine WBC (Auto) Urine Creatinine Urine Chloride Urine Total Protein Fluid Glucose Fluid Total Protein Vancomycin Trough Miscellaneous Test Crossmatch 05/16/18 05/16/18 05/17/18 07:02 07:02 05:08 WBC RBC 2.78 L Hgb 8.2 L Hct 23.9 L MCV MCHC RDW Plt Count Lymph % (Auto) Price % (Auto) 13.9 H Lymph # Price # 0.9 H Seg Neutrophils % Seg Neuts % (Manual) Lymphocytes % (Manual) Monocytes % (Manual) Seg Neutrophils # Seg Neutrophils # Man Lymphocytes # (Manual) Monocytes # (Manual) PT INR APTT Heparin Anti-Xa Level POC ABG pH POC ABG pCO2 POC ABG pO2 Sodium Potassium Chloride Carbon Dioxide BUN 28 H Creatinine 2.4 H D Glucose POC Glucose Lactic Acid Calcium 8.3 L Phosphorus Magnesium 1.50 L Iron 24 L TIBC 160 L AST ALT Alkaline Phosphatase Lactate Dehydrogenase Total Creatine Kinase C-Reactive Protein Total Protein Albumin Prealbumin CA 19-9 Antigen Folate 5.39 L PTH Intact Urine WBC (Auto) Urine Creatinine Urine Chloride Urine Total Protein Fluid Glucose Fluid Total Protein Vancomycin Trough Miscellaneous Test Crossmatch 05/17/18 05/18/18 05/18/18 05:08 05:57 05:57 WBC RBC 2.79 L Hgb 8.3 L Hct 24.0 L MCV MCHC 35 H RDW Plt Count Lymph % (Auto) Price % (Auto) 11.8 H Lymph # Price # 0.9 H Seg Neutrophils % Seg Neuts % (Manual) Lymphocytes % (Manual) Monocytes % (Manual) Seg Neutrophils # Seg Neutrophils # Man Lymphocytes # (Manual) Monocytes # (Manual) PT INR APTT Heparin Anti-Xa Level POC ABG pH POC ABG pCO2 POC ABG pO2 Sodium Potassium Chloride Carbon Dioxide BUN Creatinine Glucose POC Glucose Lactic Acid Calcium 7.7 L 8.0 L Phosphorus Magnesium 1.60 L Iron TIBC AST ALT Alkaline Phosphatase Lactate Dehydrogenase Total Creatine Kinase C-Reactive Protein Total Protein Albumin Prealbumin CA 19-9 Antigen Folate PTH Intact Urine WBC (Auto) Urine Creatinine Urine Chloride Urine Total Protein Fluid Glucose Fluid Total Protein Vancomycin Trough Miscellaneous Test Crossmatch 05/19/18 05/19/18 05/20/18 05:33 05:33 05:38 WBC RBC 2.95 L Hgb 8.8 L Hct 25.8 L MCV MCHC RDW Plt Count Lymph % (Auto) 10.1 L Price % (Auto) Lymph # 1.1 L Price # Seg Neutrophils % 85.2 H Seg Neuts % (Manual) Lymphocytes % (Manual) Monocytes % (Manual) Seg Neutrophils # 9.0 H Seg Neutrophils # Man Lymphocytes # (Manual) Monocytes # (Manual) PT INR APTT Heparin Anti-Xa Level POC ABG pH POC ABG pCO2 POC ABG pO2 Sodium 135 L Potassium Chloride Carbon Dioxide BUN Creatinine Glucose 132 H POC Glucose Lactic Acid Calcium 7.8 L 8.3 L Phosphorus Magnesium 1.40 L Iron TIBC AST ALT Alkaline Phosphatase Lactate Dehydrogenase Total Creatine Kinase C-Reactive Protein Total Protein Albumin Prealbumin CA 19-9 Antigen Folate PTH Intact Urine WBC (Auto) Urine Creatinine Urine Chloride Urine Total Protein Fluid Glucose Fluid Total Protein Vancomycin Trough Miscellaneous Test Crossmatch 05/21/18 05/21/18 05/22/18 04:46 15:30 06:49 WBC 20.0 H RBC 2.70 L Hgb 7.8 L Hct 23.3 L MCV MCHC RDW Plt Count Lymph % (Auto) Price % (Auto) Lymph # Price # Seg Neutrophils % Seg Neuts % (Manual) 85.0 H Lymphocytes % (Manual) 4.0 L Monocytes % (Manual) Seg Neutrophils # Seg Neutrophils # Man 17.0 H Lymphocytes # (Manual) 0.8 L Monocytes # (Manual) PT INR APTT Heparin Anti-Xa Level POC ABG pH POC ABG pCO2 POC ABG pO2 Sodium 135 L Potassium 3.5 L Chloride Carbon Dioxide 21 L BUN 22 H Creatinine Glucose POC Glucose Lactic Acid Calcium 8.1 L Phosphorus Magnesium Iron TIBC AST ALT Alkaline Phosphatase Lactate Dehydrogenase Total Creatine Kinase C-Reactive Protein Total Protein Albumin Prealbumin CA 19-9 Antigen Folate PTH Intact Urine WBC (Auto) 28.0 H Urine Creatinine Urine Chloride Urine Total Protein Fluid Glucose Fluid Total Protein Vancomycin Trough Miscellaneous Test Crossmatch 05/22/18 05/22/18 05/23/18 06:49 11:23 09:03 WBC RBC Hgb Hct MCV MCHC RDW Plt Count Lymph % (Auto) Price % (Auto) Lymph # Price # Seg Neutrophils % Seg Neuts % (Manual) Lymphocytes % (Manual) Monocytes % (Manual) Seg Neutrophils # Seg Neutrophils # Man Lymphocytes # (Manual) Monocytes # (Manual) PT INR APTT Heparin Anti-Xa Level POC ABG pH POC ABG pCO2 POC ABG pO2 Sodium 134 L Potassium 3.5 L Chloride Carbon Dioxide 21 L BUN 35 H 36 H Creatinine 1.7 H Glucose 107 H POC Glucose Lactic Acid Calcium 7.9 L Phosphorus Magnesium 2.50 H Iron TIBC AST ALT Alkaline Phosphatase Lactate Dehydrogenase Total Creatine Kinase C-Reactive Protein Total Protein Albumin Prealbumin CA 19-9 Antigen Folate PTH Intact Urine WBC (Auto) Urine Creatinine Urine Chloride Urine Total Protein Fluid Glucose Fluid Total Protein Vancomycin Trough Miscellaneous Test Crossmatch See Detail 05/23/18 05/23/18 05/23/18 09:03 09:03 17:34 WBC 26.3 H RBC 3.57 L Hgb 10.4 L Hct 31.1 L D MCV MCHC RDW Plt Count Lymph % (Auto) Price % (Auto) Lymph # Price # Seg Neutrophils % Seg Neuts % (Manual) Lymphocytes % (Manual) Monocytes % (Manual) Seg Neutrophils # Seg Neutrophils # Man Lymphocytes # (Manual) Monocytes # (Manual) PT 18.3 H INR 1.43 H APTT 40.0 H Heparin Anti-Xa Level POC ABG pH POC ABG pCO2 POC ABG pO2 Sodium Potassium Chloride Carbon Dioxide BUN Creatinine Glucose POC Glucose 108 H Lactic Acid Calcium Phosphorus Magnesium Iron TIBC AST ALT Alkaline Phosphatase Lactate Dehydrogenase Total Creatine Kinase C-Reactive Protein Total Protein Albumin Prealbumin CA 19-9 Antigen Folate PTH Intact Urine WBC (Auto) Urine Creatinine Urine Chloride Urine Total Protein Fluid Glucose Fluid Total Protein Vancomycin Trough Miscellaneous Test Crossmatch 05/23/18 05/24/18 05/24/18 21:14 04:43 08:04 WBC RBC Hgb Hct MCV MCHC RDW Plt Count Lymph % (Auto) Price % (Auto) Lymph # Price # Seg Neutrophils % Seg Neuts % (Manual) Lymphocytes % (Manual) Monocytes % (Manual) Seg Neutrophils # Seg Neutrophils # Man Lymphocytes # (Manual) Monocytes # (Manual) PT INR APTT Heparin Anti-Xa Level POC ABG pH POC ABG pCO2 POC ABG pO2 Sodium 146 H Potassium Chloride 108.6 H Carbon Dioxide BUN 33 H Creatinine Glucose 109 H POC Glucose 110 H 106 H Lactic Acid Calcium 8.3 L Phosphorus Magnesium 2.50 H Iron TIBC AST ALT Alkaline Phosphatase Lactate Dehydrogenase Total Creatine Kinase C-Reactive Protein Total Protein Albumin Prealbumin CA 19-9 Antigen Folate PTH Intact Urine WBC (Auto) Urine Creatinine Urine Chloride Urine Total Protein Fluid Glucose Fluid Total Protein Vancomycin Trough Miscellaneous Test Crossmatch 05/25/18 05/25/18 05/25/18 05:42 05:49 19:50 WBC RBC Hgb Hct MCV MCHC RDW Plt Count Lymph % (Auto) Price % (Auto) Lymph # Price # Seg Neutrophils % Seg Neuts % (Manual) Lymphocytes % (Manual) Monocytes % (Manual) Seg Neutrophils # Seg Neutrophils # Man Lymphocytes # (Manual) Monocytes # (Manual) PT INR APTT Heparin Anti-Xa Level POC ABG pH POC ABG pCO2 POC ABG pO2 Sodium 150 H Potassium Chloride 112.5 H Carbon Dioxide BUN 34 H Creatinine Glucose 102 H POC Glucose 107 H Lactic Acid Calcium Phosphorus Magnesium Iron TIBC AST ALT Alkaline Phosphatase Lactate Dehydrogenase Total Creatine Kinase C-Reactive Protein 34.50 H Total Protein Albumin Prealbumin CA 19-9 Antigen Folate PTH Intact Urine WBC (Auto) Urine Creatinine Urine Chloride Urine Total Protein Fluid Glucose Fluid Total Protein Vancomycin Trough Miscellaneous Test Crossmatch 05/25/18 05/25/18 05/25/18 19:50 21:05 22:46 WBC RBC Hgb Hct MCV MCHC RDW Plt Count Lymph % (Auto) Price % (Auto) Lymph # Price # Seg Neutrophils % Seg Neuts % (Manual) Lymphocytes % (Manual) Monocytes % (Manual) Seg Neutrophils # Seg Neutrophils # Man Lymphocytes # (Manual) Monocytes # (Manual) PT INR APTT Heparin Anti-Xa Level POC ABG pH 7.483 H POC ABG pCO2 24.0 L POC ABG pO2 72 L Sodium Potassium Chloride Carbon Dioxide BUN Creatinine Glucose POC Glucose Lactic Acid 5.90 H* Calcium Phosphorus Magnesium Iron TIBC AST ALT Alkaline Phosphatase Lactate Dehydrogenase Total Creatine Kinase C-Reactive Protein Total Protein Albumin Prealbumin CA 19-9 Antigen Folate PTH Intact Urine WBC (Auto) Urine Creatinine Urine Chloride Urine Total Protein Fluid Glucose Fluid Total Protein Vancomycin Trough 25.1 H Miscellaneous Test Crossmatch 0905/26/18 05/26/18 22:46 00:21 00:51 WBC RBC Hgb Hct MCV MCHC RDW Plt Count Lymph % (Auto) Price % (Auto) Lymph # Price # Seg Neutrophils % Seg Neuts % (Manual) Lymphocytes % (Manual) Monocytes % (Manual) Seg Neutrophils # Seg Neutrophils # Man Lymphocytes # (Manual) Monocytes # (Manual) PT INR APTT Heparin Anti-Xa Level POC ABG pH POC ABG pCO2 POC ABG pO2 Sodium Potassium Chloride Carbon Dioxide BUN Creatinine Glucose POC Glucose 133 H Lactic Acid 8.10 H* 6.20 H* Calcium Phosphorus Magnesium Iron TIBC AST ALT Alkaline Phosphatase Lactate Dehydrogenase Total Creatine Kinase C-Reactive Protein Total Protein Albumin Prealbumin CA 19-9 Antigen Folate PTH Intact Urine WBC (Auto) Urine Creatinine Urine Chloride Urine Total Protein Fluid Glucose Fluid Total Protein Vancomycin Trough Miscellaneous Test Crossmatch 05/26/18 05/26/18 05/26/18 01:13 02:24 02:24 WBC 18.7 H RBC Hgb 11.6 L Hct MCV MCHC RDW Plt Count Lymph % (Auto) Price % (Auto) Lymph # Price # Seg Neutrophils % Seg Neuts % (Manual) Lymphocytes % (Manual) Monocytes % (Manual) Seg Neutrophils # Seg Neutrophils # Man Lymphocytes # (Manual) Monocytes # (Manual) PT INR APTT Heparin Anti-Xa Level POC ABG pH POC ABG pCO2 POC ABG pO2 Sodium 147 H Potassium 6.2 H* D Chloride 111.9 H Carbon Dioxide 19 L BUN 80 H Creatinine 5.1 H D Glucose 112 H POC Glucose Lactic Acid 5.20 H* Calcium 6.7 L D Phosphorus Magnesium Iron TIBC AST ALT Alkaline Phosphatase Lactate Dehydrogenase Total Creatine Kinase C-Reactive Protein Total Protein Albumin Prealbumin CA 19-9 Antigen Folate PTH Intact Urine WBC (Auto) Urine Creatinine Urine Chloride Urine Total Protein Fluid Glucose Fluid Total Protein Vancomycin Trough Miscellaneous Test Crossmatch 05/26/18 05/26/18 05/26/18 04:20 04:20 05:39 WBC RBC Hgb Hct MCV MCHC RDW Plt Count Lymph % (Auto) Price % (Auto) Lymph # Price # Seg Neutrophils % Seg Neuts % (Manual) Lymphocytes % (Manual) Monocytes % (Manual) Seg Neutrophils # Seg Neutrophils # Man Lymphocytes # (Manual) Monocytes # (Manual) PT INR APTT Heparin Anti-Xa Level POC ABG pH POC ABG pCO2 POC ABG pO2 Sodium 150 H Potassium Chloride 110.0 H Carbon Dioxide 19 L BUN 66 H Creatinine Glucose 166 H POC Glucose 187 H Lactic Acid 5.10 H* Calcium 6.9 L Phosphorus 6.70 H D Magnesium Iron TIBC AST ALT Alkaline Phosphatase Lactate Dehydrogenase Total Creatine Kinase C-Reactive Protein Total Protein Albumin Prealbumin CA 19-9 Antigen Folate PTH Intact Urine WBC (Auto) Urine Creatinine Urine Chloride Urine Total Protein Fluid Glucose Fluid Total Protein Vancomycin Trough Miscellaneous Test Crossmatch 05/26/18 05/26/18 05/26/18 06:02 07:29 11:00 WBC RBC Hgb Hct MCV MCHC RDW Plt Count Lymph % (Auto) Price % (Auto) Lymph # Price # Seg Neutrophils % Seg Neuts % (Manual) Lymphocytes % (Manual) Monocytes % (Manual) Seg Neutrophils # Seg Neutrophils # Man Lymphocytes # (Manual) Monocytes # (Manual) PT INR APTT Heparin Anti-Xa Level POC ABG pH POC ABG pCO2 28.8 L POC ABG pO2 Sodium Potassium Chloride Carbon Dioxide BUN Creatinine Glucose POC Glucose Lactic Acid 4.80 H* 3.80 H* Calcium Phosphorus Magnesium Iron TIBC AST ALT Alkaline Phosphatase Lactate Dehydrogenase Total Creatine Kinase C-Reactive Protein Total Protein Albumin Prealbumin CA 19-9 Antigen Folate PTH Intact Urine WBC (Auto) Urine Creatinine Urine Chloride Urine Total Protein Fluid Glucose Fluid Total Protein Vancomycin Trough Miscellaneous Test Crossmatch 05/26/18 05/26/18 05/26/18 11:01 12:28 18:00 WBC RBC Hgb Hct MCV MCHC RDW Plt Count Lymph % (Auto) Price % (Auto) Lymph # Price # Seg Neutrophils % Seg Neuts % (Manual) Lymphocytes % (Manual) Monocytes % (Manual) Seg Neutrophils # Seg Neutrophils # Man Lymphocytes # (Manual) Monocytes # (Manual) PT INR APTT Heparin Anti-Xa Level POC ABG pH POC ABG pCO2 POC ABG pO2 Sodium 150 H 151 H Potassium 5.3 H D 6.1 H* Chloride 110.3 H 117.0 H Carbon Dioxide 21 L 20 L BUN 75 H 77 H Creatinine 4.3 H D 4.6 H Glucose 161 H POC Glucose 114 H Lactic Acid Calcium 7.5 L 6.7 L Phosphorus Magnesium Iron TIBC AST 1041 H ALT 406 H Alkaline Phosphatase 281 H Lactate Dehydrogenase Total Creatine Kinase C-Reactive Protein Total Protein 4.4 L Albumin 1.3 L Prealbumin CA 19-9 Antigen Folate PTH Intact Urine WBC (Auto) Urine Creatinine Urine Chloride Urine Total Protein Fluid Glucose Fluid Total Protein Vancomycin Trough Miscellaneous Test Crossmatch 05/26/18 05/26/18 05/27/18 18:02 19:17 01:01 WBC 21.7 H RBC 2.70 L Hgb 7.8 L D Hct 24.6 L D MCV MCHC RDW 15.3 H Plt Count Lymph % (Auto) Price % (Auto) Lymph # Price # Seg Neutrophils % Seg Neuts % (Manual) 94.0 H Lymphocytes % (Manual) 3.0 L Monocytes % (Manual) Seg Neutrophils # Seg Neutrophils # Man 20.4 H Lymphocytes # (Manual) 0.7 L Monocytes # (Manual) PT INR APTT Heparin Anti-Xa Level POC ABG pH 7.159 L 7.205 L POC ABG pCO2 54.5 H 53.0 H POC ABG pO2 252 H Sodium Potassium Chloride Carbon Dioxide BUN Creatinine Glucose POC Glucose Lactic Acid Calcium Phosphorus Magnesium Iron TIBC AST ALT Alkaline Phosphatase Lactate Dehydrogenase Total Creatine Kinase C-Reactive Protein Total Protein Albumin Prealbumin CA 19-9 Antigen Folate PTH Intact Urine WBC (Auto) Urine Creatinine Urine Chloride Urine Total Protein Fluid Glucose Fluid Total Protein Vancomycin Trough Miscellaneous Test Crossmatch 05/27/18 05/27/18 05/27/18 05:15 05:15 06:11 WBC 24.9 H RBC 2.86 L Hgb 8.1 L Hct 25.9 L MCV MCHC RDW 15.5 H Plt Count Lymph % (Auto) Price % (Auto) Lymph # Price # Seg Neutrophils % Seg Neuts % (Manual) Lymphocytes % (Manual) Monocytes % (Manual) Seg Neutrophils # Seg Neutrophils # Man Lymphocytes # (Manual) Monocytes # (Manual) PT INR APTT Heparin Anti-Xa Level POC ABG pH 7.265 L POC ABG pCO2 46.2 H POC ABG pO2 111 H Sodium 149 H Potassium 6.9 H* Chloride 113.5 H Carbon Dioxide BUN 89 H Creatinine 5.2 H Glucose 118 H POC Glucose Lactic Acid Calcium 7.0 L Phosphorus 9.70 H D Magnesium Iron TIBC AST 876 H ALT 408 H Alkaline Phosphatase Lactate Dehydrogenase Total Creatine Kinase C-Reactive Protein Total Protein 5.2 L Albumin 1.5 L Prealbumin CA 19-9 Antigen Folate PTH Intact Urine WBC (Auto) Urine Creatinine Urine Chloride Urine Total Protein Fluid Glucose Fluid Total Protein Vancomycin Trough Miscellaneous Test Crossmatch 05/27/18 05/27/18 05/27/18 08:48 10:22 10:22 WBC RBC Hgb Hct MCV MCHC RDW Plt Count Lymph % (Auto) Price % (Auto) Lymph # Price # Seg Neutrophils % Seg Neuts % (Manual) Lymphocytes % (Manual) Monocytes % (Manual) Seg Neutrophils # Seg Neutrophils # Man Lymphocytes # (Manual) Monocytes # (Manual) PT INR APTT Heparin Anti-Xa Level POC ABG pH POC ABG pCO2 POC ABG pO2 Sodium 146 H Potassium 6.1 H* Chloride 108.2 H Carbon Dioxide 21 L BUN 88 H Creatinine 5.6 H Glucose 163 H POC Glucose 164 H Lactic Acid Calcium 6.7 L Phosphorus Magnesium Iron TIBC AST ALT Alkaline Phosphatase Lactate Dehydrogenase Total Creatine Kinase C-Reactive Protein 40.70 H Total Protein Albumin Prealbumin CA 19-9 Antigen Folate PTH Intact Urine WBC (Auto) Urine Creatinine Urine Chloride Urine Total Protein Fluid Glucose Fluid Total Protein Vancomycin Trough Miscellaneous Test Crossmatch 05/27/18 05/27/18 05/27/18 13:02 17:39 23:27 WBC RBC Hgb Hct MCV MCHC RDW Plt Count Lymph % (Auto) Price % (Auto) Lymph # Price # Seg Neutrophils % Seg Neuts % (Manual) Lymphocytes % (Manual) Monocytes % (Manual) Seg Neutrophils # Seg Neutrophils # Man Lymphocytes # (Manual) Monocytes # (Manual) PT INR APTT Heparin Anti-Xa Level POC ABG pH POC ABG pCO2 POC ABG pO2 Sodium Potassium Chloride Carbon Dioxide BUN Creatinine Glucose POC Glucose 59 L 132 H Lactic Acid Calcium Phosphorus Magnesium Iron TIBC AST ALT Alkaline Phosphatase Lactate Dehydrogenase Total Creatine Kinase C-Reactive Protein Total Protein Albumin Prealbumin CA 19-9 Antigen Folate PTH Intact Urine WBC (Auto) Urine Creatinine Urine Chloride Urine Total Protein Fluid Glucose Fluid Total Protein Vancomycin Trough Miscellaneous Test Flexitest 1 H Crossmatch 05/27/18 05/28/18 05/28/18 Unknown 04:32 05:00 WBC RBC Hgb Hct MCV MCHC RDW Plt Count Lymph % (Auto) Price % (Auto) Lymph # Price # Seg Neutrophils % Seg Neuts % (Manual) Lymphocytes % (Manual) Monocytes % (Manual) Seg Neutrophils # Seg Neutrophils # Man Lymphocytes # (Manual) Monocytes # (Manual) PT INR APTT Heparin Anti-Xa Level POC ABG pH POC ABG pCO2 POC ABG pO2 134 H Sodium Potassium Chloride Carbon Dioxide BUN 69 H Creatinine 4.4 H Glucose 118 H POC Glucose Lactic Acid Calcium 8.0 L D Phosphorus 6.80 H D Magnesium Iron TIBC AST ALT Alkaline Phosphatase Lactate Dehydrogenase Total Creatine Kinase C-Reactive Protein Total Protein Albumin Prealbumin CA 19-9 Antigen Folate PTH Intact Urine WBC (Auto) 120.0 H Urine Creatinine Urine Chloride Urine Total Protein Fluid Glucose Fluid Total Protein Vancomycin Trough Miscellaneous Test Crossmatch 05/28/18 05/28/18 05/28/18 05:00 05:27 13:04 WBC 26.5 H RBC 2.69 L Hgb 7.7 L Hct 23.6 L MCV MCHC RDW Plt Count Lymph % (Auto) Price % (Auto) Lymph # Price # Seg Neutrophils % Seg Neuts % (Manual) 96.0 H Lymphocytes % (Manual) 0 L Monocytes % (Manual) Seg Neutrophils # Seg Neutrophils # Man 25.4 H Lymphocytes # (Manual) 0.0 L Monocytes # (Manual) PT INR APTT Heparin Anti-Xa Level POC ABG pH POC ABG pCO2 POC ABG pO2 Sodium Potassium Chloride Carbon Dioxide BUN Creatinine Glucose POC Glucose 128 H 155 H Lactic Acid Calcium Phosphorus Magnesium Iron TIBC AST ALT Alkaline Phosphatase Lactate Dehydrogenase Total Creatine Kinase C-Reactive Protein Total Protein Albumin Prealbumin CA 19-9 Antigen Folate PTH Intact Urine WBC (Auto) Urine Creatinine Urine Chloride Urine Total Protein Fluid Glucose Fluid Total Protein Vancomycin Trough Miscellaneous Test Crossmatch 05/28/18 05/29/18 05/29/18 17:56 03:35 04:00 WBC RBC Hgb Hct MCV MCHC RDW Plt Count Lymph % (Auto) Price % (Auto) Lymph # Price # Seg Neutrophils % Seg Neuts % (Manual) Lymphocytes % (Manual) Monocytes % (Manual) Seg Neutrophils # Seg Neutrophils # Man Lymphocytes # (Manual) Monocytes # (Manual) PT INR APTT Heparin Anti-Xa Level POC ABG pH 7.471 H POC ABG pCO2 POC ABG pO2 78 L Sodium Potassium Chloride Carbon Dioxide BUN 50 H Creatinine 3.9 H Glucose POC Glucose 110 H Lactic Acid Calcium 7.7 L Phosphorus Magnesium 1.50 L Iron TIBC AST 218 H ALT 204 H Alkaline Phosphatase Lactate Dehydrogenase Total Creatine Kinase C-Reactive Protein Total Protein 5.4 L Albumin 1.6 L Prealbumin CA 19-9 Antigen Folate PTH Intact Urine WBC (Auto) Urine Creatinine Urine Chloride Urine Total Protein Fluid Glucose Fluid Total Protein Vancomycin Trough Miscellaneous Test Crossmatch 05/29/18 05/29/18 05/30/18 11:51 23:56 04:54 WBC RBC Hgb Hct MCV MCHC RDW Plt Count Lymph % (Auto) Price % (Auto) Lymph # Price # Seg Neutrophils % Seg Neuts % (Manual) Lymphocytes % (Manual) Monocytes % (Manual) Seg Neutrophils # Seg Neutrophils # Man Lymphocytes # (Manual) Monocytes # (Manual) PT INR APTT Heparin Anti-Xa Level POC ABG pH POC ABG pCO2 POC ABG pO2 Sodium Potassium Chloride Carbon Dioxide BUN Creatinine Glucose POC Glucose 131 H 119 H 115 H Lactic Acid Calcium Phosphorus Magnesium Iron TIBC AST ALT Alkaline Phosphatase Lactate Dehydrogenase Total Creatine Kinase C-Reactive Protein Total Protein Albumin Prealbumin CA 19-9 Antigen Folate PTH Intact Urine WBC (Auto) Urine Creatinine Urine Chloride Urine Total Protein Fluid Glucose Fluid Total Protein Vancomycin Trough Miscellaneous Test Crossmatch 05/30/18 05/30/18 05/30/18 05:07 05:15 05:15 WBC 16.2 H RBC 2.53 L Hgb 7.4 L Hct 21.9 L MCV MCHC RDW Plt Count Lymph % (Auto) Price % (Auto) Lymph # Price # Seg Neutrophils % Seg Neuts % (Manual) Lymphocytes % (Manual) Monocytes % (Manual) Seg Neutrophils # Seg Neutrophils # Man Lymphocytes # (Manual) Monocytes # (Manual) PT INR APTT Heparin Anti-Xa Level POC ABG pH POC ABG pCO2 34.5 L POC ABG pO2 133 H Sodium 135 L Potassium Chloride 97.5 L Carbon Dioxide BUN 69 H Creatinine 5.4 H Glucose 105 H POC Glucose Lactic Acid Calcium 7.5 L Phosphorus 5.30 H D Magnesium Iron TIBC AST ALT Alkaline Phosphatase Lactate Dehydrogenase Total Creatine Kinase C-Reactive Protein Total Protein Albumin Prealbumin CA 19-9 Antigen Folate PTH Intact Urine WBC (Auto) Urine Creatinine Urine Chloride Urine Total Protein Fluid Glucose Fluid Total Protein Vancomycin Trough Miscellaneous Test Crossmatch 05/30/18 05/30/18 05/31/18 12:13 17:10 04:50 WBC 18.7 H RBC 2.86 L Hgb 8.2 L Hct 24.8 L MCV MCHC RDW Plt Count Lymph % (Auto) Price % (Auto) Lymph # Price # Seg Neutrophils % Seg Neuts % (Manual) 91.0 H Lymphocytes % (Manual) 2.0 L Monocytes % (Manual) Seg Neutrophils # Seg Neutrophils # Man 17.0 H Lymphocytes # (Manual) 0.4 L Monocytes # (Manual) PT INR APTT Heparin Anti-Xa Level POC ABG pH POC ABG pCO2 POC ABG pO2 Sodium Potassium Chloride Carbon Dioxide BUN Creatinine Glucose POC Glucose 132 H 122 H Lactic Acid Calcium Phosphorus Magnesium Iron TIBC AST ALT Alkaline Phosphatase Lactate Dehydrogenase Total Creatine Kinase C-Reactive Protein Total Protein Albumin Prealbumin CA 19-9 Antigen Folate PTH Intact Urine WBC (Auto) Urine Creatinine Urine Chloride Urine Total Protein Fluid Glucose Fluid Total Protein Vancomycin Trough Miscellaneous Test Crossmatch 05/31/18 05/31/18 05/31/18 04:50 05:45 11:37 WBC RBC Hgb Hct MCV MCHC RDW Plt Count Lymph % (Auto) Price % (Auto) Lymph # Price # Seg Neutrophils % Seg Neuts % (Manual) Lymphocytes % (Manual) Monocytes % (Manual) Seg Neutrophils # Seg Neutrophils # Man Lymphocytes # (Manual) Monocytes # (Manual) PT INR APTT Heparin Anti-Xa Level POC ABG pH POC ABG pCO2 POC ABG pO2 Sodium 132 L Potassium Chloride 92.4 L Carbon Dioxide BUN 77 H Creatinine 5.9 H Glucose POC Glucose 111 H 136 H Lactic Acid Calcium 7.3 L Phosphorus 6.40 H D Magnesium Iron TIBC AST ALT Alkaline Phosphatase Lactate Dehydrogenase Total Creatine Kinase C-Reactive Protein Total Protein Albumin Prealbumin CA 19-9 Antigen Folate PTH Intact Urine WBC (Auto) Urine Creatinine Urine Chloride Urine Total Protein Fluid Glucose Fluid Total Protein Vancomycin Trough Miscellaneous Test Crossmatch 05/31/18 06/01/18 06/01/18 17:52 00:09 04:00 WBC RBC Hgb Hct MCV MCHC RDW Plt Count Lymph % (Auto) Price % (Auto) Lymph # Price # Seg Neutrophils % Seg Neuts % (Manual) Lymphocytes % (Manual) Monocytes % (Manual) Seg Neutrophils # Seg Neutrophils # Man Lymphocytes # (Manual) Monocytes # (Manual) PT INR APTT Heparin Anti-Xa Level POC ABG pH POC ABG pCO2 POC ABG pO2 Sodium Potassium Chloride 97.5 L Carbon Dioxide BUN 49 H Creatinine 4.2 H Glucose 104 H POC Glucose 115 H 114 H Lactic Acid Calcium 7.3 L Phosphorus 4.70 H D Magnesium Iron TIBC AST ALT Alkaline Phosphatase Lactate Dehydrogenase Total Creatine Kinase C-Reactive Protein Total Protein Albumin Prealbumin CA 19-9 Antigen Folate PTH Intact Urine WBC (Auto) Urine Creatinine Urine Chloride Urine Total Protein Fluid Glucose Fluid Total Protein Vancomycin Trough Miscellaneous Test Crossmatch 06/01/18 06/01/18 06/02/18 11:10 17:56 00:15 WBC RBC Hgb Hct MCV MCHC RDW Plt Count Lymph % (Auto) Price % (Auto) Lymph # Price # Seg Neutrophils % Seg Neuts % (Manual) Lymphocytes % (Manual) Monocytes % (Manual) Seg Neutrophils # Seg Neutrophils # Man Lymphocytes # (Manual) Monocytes # (Manual) PT INR APTT Heparin Anti-Xa Level POC ABG pH POC ABG pCO2 POC ABG pO2 Sodium Potassium Chloride Carbon Dioxide BUN Creatinine Glucose POC Glucose 123 H 126 H 135 H Lactic Acid Calcium Phosphorus Magnesium Iron TIBC AST ALT Alkaline Phosphatase Lactate Dehydrogenase Total Creatine Kinase C-Reactive Protein Total Protein Albumin Prealbumin CA 19-9 Antigen Folate PTH Intact Urine WBC (Auto) Urine Creatinine Urine Chloride Urine Total Protein Fluid Glucose Fluid Total Protein Vancomycin Trough Miscellaneous Test Crossmatch 06/02/18 06/02/18 06/02/18 05:23 12:42 13:05 WBC RBC Hgb Hct MCV MCHC RDW Plt Count Lymph % (Auto) Price % (Auto) Lymph # Price # Seg Neutrophils % Seg Neuts % (Manual) Lymphocytes % (Manual) Monocytes % (Manual) Seg Neutrophils # Seg Neutrophils # Man Lymphocytes # (Manual) Monocytes # (Manual) PT 17.1 H INR 1.34 H APTT Heparin Anti-Xa Level POC ABG pH POC ABG pCO2 POC ABG pO2 Sodium Potassium Chloride Carbon Dioxide BUN Creatinine Glucose POC Glucose 135 H 142 H Lactic Acid Calcium Phosphorus Magnesium Iron TIBC AST ALT Alkaline Phosphatase Lactate Dehydrogenase Total Creatine Kinase C-Reactive Protein Total Protein Albumin Prealbumin CA 19-9 Antigen Folate PTH Intact Urine WBC (Auto) Urine Creatinine Urine Chloride Urine Total Protein Fluid Glucose Fluid Total Protein Vancomycin Trough Miscellaneous Test Crossmatch 06/02/18 06/02/18 06/03/18 Unknown Unknown 00:54 WBC 20.8 H RBC 2.67 L Hgb 7.7 L Hct 23.0 L MCV MCHC RDW Plt Count 500 H Lymph % (Auto) Price % (Auto) Lymph # Price # Seg Neutrophils % Seg Neuts % (Manual) Lymphocytes % (Manual) Monocytes % (Manual) Seg Neutrophils # Seg Neutrophils # Man Lymphocytes # (Manual) Monocytes # (Manual) PT INR APTT Heparin Anti-Xa Level POC ABG pH POC ABG pCO2 POC ABG pO2 Sodium 136 L Potassium 3.5 L Chloride 96.9 L Carbon Dioxide BUN 62 H Creatinine 4.9 H Glucose 133 H POC Glucose 125 H Lactic Acid Calcium 7.2 L Phosphorus 5.00 H Magnesium Iron TIBC AST 46 H ALT 66 H Alkaline Phosphatase Lactate Dehydrogenase Total Creatine Kinase C-Reactive Protein Total Protein 5.7 L Albumin 1.5 L Prealbumin CA 19-9 Antigen Folate PTH Intact Urine WBC (Auto) Urine Creatinine Urine Chloride Urine Total Protein Fluid Glucose Fluid Total Protein Vancomycin Trough Miscellaneous Test Crossmatch 06/03/18 06/03/18 06/03/18 03:31 09:18 09:18 WBC RBC Hgb Hct MCV MCHC RDW Plt Count Lymph % (Auto) Price % (Auto) Lymph # Price # Seg Neutrophils % Seg Neuts % (Manual) Lymphocytes % (Manual) Monocytes % (Manual) Seg Neutrophils # Seg Neutrophils # Man Lymphocytes # (Manual) Monocytes # (Manual) PT 17.1 H INR 1.34 H APTT Heparin Anti-Xa Level POC ABG pH POC ABG pCO2 POC ABG pO2 Sodium 136 L Potassium Chloride Carbon Dioxide BUN 41 H Creatinine 3.4 H Glucose 129 H POC Glucose Lactic Acid Calcium 7.4 L Phosphorus Magnesium Iron TIBC AST ALT Alkaline Phosphatase Lactate Dehydrogenase Total Creatine Kinase C-Reactive Protein 11.10 H Total Protein Albumin Prealbumin CA 19-9 Antigen Folate PTH Intact Urine WBC (Auto) Urine Creatinine Urine Chloride Urine Total Protein Fluid Glucose Fluid Total Protein Vancomycin Trough Miscellaneous Test Crossmatch 06/03/18 06/03/18 06/03/18 16:07 21:18 Unknown WBC RBC Hgb Hct MCV MCHC RDW Plt Count Lymph % (Auto) Price % (Auto) Lymph # Price # Seg Neutrophils % Seg Neuts % (Manual) Lymphocytes % (Manual) Monocytes % (Manual) Seg Neutrophils # Seg Neutrophils # Man Lymphocytes # (Manual) Monocytes # (Manual) PT INR APTT Heparin Anti-Xa Level POC ABG pH POC ABG pCO2 POC ABG pO2 Sodium Potassium Chloride Carbon Dioxide BUN Creatinine Glucose POC Glucose 144 H 128 H Lactic Acid Calcium Phosphorus Magnesium Iron TIBC AST ALT Alkaline Phosphatase Lactate Dehydrogenase Total Creatine Kinase C-Reactive Protein Total Protein Albumin Prealbumin CA 19-9 Antigen Folate PTH Intact Urine WBC (Auto) Urine Creatinine Urine Chloride Urine Total Protein Fluid Glucose 10 L Fluid Total Protein 3.7 L Vancomycin Trough Miscellaneous Test Crossmatch 06/04/18 06/04/18 06/04/18 04:31 06:14 11:38 WBC RBC Hgb Hct MCV MCHC RDW Plt Count Lymph % (Auto) Price % (Auto) Lymph # Price # Seg Neutrophils % Seg Neuts % (Manual) Lymphocytes % (Manual) Monocytes % (Manual) Seg Neutrophils # Seg Neutrophils # Man Lymphocytes # (Manual) Monocytes # (Manual) PT INR APTT Heparin Anti-Xa Level POC ABG pH POC ABG pCO2 POC ABG pO2 Sodium Potassium Chloride Carbon Dioxide BUN 55 H Creatinine 3.7 H Glucose 151 H POC Glucose 145 H 129 H Lactic Acid Calcium 7.8 L Phosphorus 4.60 H Magnesium Iron TIBC AST ALT Alkaline Phosphatase Lactate Dehydrogenase Total Creatine Kinase C-Reactive Protein Total Protein Albumin Prealbumin CA 19-9 Antigen Folate PTH Intact Urine WBC (Auto) Urine Creatinine Urine Chloride Urine Total Protein Fluid Glucose Fluid Total Protein Vancomycin Trough Miscellaneous Test Crossmatch 06/04/18 06/04/18 06/04/18 17:09 20:00 21:29 WBC RBC Hgb 8.8 L Hct 27.3 L MCV MCHC RDW Plt Count Lymph % (Auto) Price % (Auto) Lymph # Price # Seg Neutrophils % Seg Neuts % (Manual) Lymphocytes % (Manual) Monocytes % (Manual) Seg Neutrophils # Seg Neutrophils # Man Lymphocytes # (Manual) Monocytes # (Manual) PT INR APTT Heparin Anti-Xa Level POC ABG pH POC ABG pCO2 POC ABG pO2 Sodium Potassium Chloride Carbon Dioxide BUN Creatinine Glucose POC Glucose 142 H 130 H Lactic Acid Calcium Phosphorus Magnesium Iron TIBC AST ALT Alkaline Phosphatase Lactate Dehydrogenase Total Creatine Kinase C-Reactive Protein Total Protein Albumin Prealbumin CA 19-9 Antigen Folate PTH Intact Urine WBC (Auto) Urine Creatinine Urine Chloride Urine Total Protein Fluid Glucose Fluid Total Protein Vancomycin Trough Miscellaneous Test Crossmatch 06/05/18 06/05/18 06/05/18 06:30 07:00 07:00 WBC 19.3 H RBC 2.94 L Hgb 8.3 L Hct 25.6 L MCV MCHC RDW 15.7 H Plt Count 568 H Lymph % (Auto) 4.7 L Price % (Auto) Lymph # 0.9 L Price # 1.1 H Seg Neutrophils % 88.9 H Seg Neuts % (Manual) Lymphocytes % (Manual) Monocytes % (Manual) Seg Neutrophils # 17.2 H Seg Neutrophils # Man Lymphocytes # (Manual) Monocytes # (Manual) PT INR APTT Heparin Anti-Xa Level POC ABG pH POC ABG pCO2 POC ABG pO2 Sodium Potassium 3.4 L D Chloride Carbon Dioxide BUN 67 H Creatinine 3.6 H Glucose 145 H POC Glucose 153 H Lactic Acid Calcium 7.9 L Phosphorus 4.60 H Magnesium Iron TIBC AST ALT Alkaline Phosphatase Lactate Dehydrogenase Total Creatine Kinase C-Reactive Protein Total Protein Albumin Prealbumin CA 19-9 Antigen Folate PTH Intact Urine WBC (Auto) Urine Creatinine Urine Chloride Urine Total Protein Fluid Glucose Fluid Total Protein Vancomycin Trough Miscellaneous Test Crossmatch 06/05/18 06/05/18 06/06/18 12:10 16:01 06:39 WBC RBC Hgb Hct MCV MCHC RDW Plt Count Lymph % (Auto) Price % (Auto) Lymph # Price # Seg Neutrophils % Seg Neuts % (Manual) Lymphocytes % (Manual) Monocytes % (Manual) Seg Neutrophils # Seg Neutrophils # Man Lymphocytes # (Manual) Monocytes # (Manual) PT INR APTT Heparin Anti-Xa Level POC ABG pH POC ABG pCO2 POC ABG pO2 Sodium Potassium Chloride Carbon Dioxide BUN Creatinine Glucose POC Glucose 150 H 129 H 131 H Lactic Acid Calcium Phosphorus Magnesium Iron TIBC AST ALT Alkaline Phosphatase Lactate Dehydrogenase Total Creatine Kinase C-Reactive Protein Total Protein Albumin Prealbumin CA 19-9 Antigen Folate PTH Intact Urine WBC (Auto) Urine Creatinine Urine Chloride Urine Total Protein Fluid Glucose Fluid Total Protein Vancomycin Trough Miscellaneous Test Crossmatch 06/06/18 06/06/18 06/06/18 07:14 07:14 07:14 WBC 16.5 H RBC 2.84 L Hgb 8.1 L Hct 25.2 L MCV MCHC RDW 16.4 H Plt Count 526 H Lymph % (Auto) 6.5 L Price % (Auto) Lymph # 1.1 L Price # 1.2 H Seg Neutrophils % 85.3 H Seg Neuts % (Manual) Lymphocytes % (Manual) Monocytes % (Manual) Seg Neutrophils # 14.1 H Seg Neutrophils # Man Lymphocytes # (Manual) Monocytes # (Manual) PT INR APTT Heparin Anti-Xa Level POC ABG pH POC ABG pCO2 POC ABG pO2 Sodium Potassium Chloride 109.1 H Carbon Dioxide 21 L BUN 76 H Creatinine 3.5 H Glucose 111 H POC Glucose Lactic Acid Calcium 8.1 L Phosphorus Magnesium Iron TIBC AST ALT Alkaline Phosphatase Lactate Dehydrogenase Total Creatine Kinase C-Reactive Protein 4.70 H Total Protein Albumin Prealbumin CA 19-9 Antigen Folate PTH Intact Urine WBC (Auto) Urine Creatinine Urine Chloride Urine Total Protein Fluid Glucose Fluid Total Protein Vancomycin Trough Miscellaneous Test Crossmatch 06/06/18 06/06/18 06/06/18 11:15 18:00 23:58 WBC RBC Hgb Hct MCV MCHC RDW Plt Count Lymph % (Auto) Price % (Auto) Lymph # Price # Seg Neutrophils % Seg Neuts % (Manual) Lymphocytes % (Manual) Monocytes % (Manual) Seg Neutrophils # Seg Neutrophils # Man Lymphocytes # (Manual) Monocytes # (Manual) PT INR APTT Heparin Anti-Xa Level POC ABG pH POC ABG pCO2 POC ABG pO2 Sodium Potassium Chloride Carbon Dioxide BUN Creatinine Glucose POC Glucose 127 H 130 H 114 H Lactic Acid Calcium Phosphorus Magnesium Iron TIBC AST ALT Alkaline Phosphatase Lactate Dehydrogenase Total Creatine Kinase C-Reactive Protein Total Protein Albumin Prealbumin CA 19-9 Antigen Folate PTH Intact Urine WBC (Auto) Urine Creatinine Urine Chloride Urine Total Protein Fluid Glucose Fluid Total Protein Vancomycin Trough Miscellaneous Test Crossmatch 06/07/18 06/07/18 06/07/18 05:45 05:45 05:54 WBC 15.5 H RBC 2.60 L Hgb 7.4 L Hct 23.1 L MCV MCHC RDW 16.5 H Plt Count 506 H Lymph % (Auto) 5.3 L Price % (Auto) Lymph # 0.8 L Price # 1.0 H Seg Neutrophils % 86.6 H Seg Neuts % (Manual) Lymphocytes % (Manual) Monocytes % (Manual) Seg Neutrophils # 13.4 H Seg Neutrophils # Man Lymphocytes # (Manual) Monocytes # (Manual) PT INR APTT Heparin Anti-Xa Level POC ABG pH POC ABG pCO2 POC ABG pO2 Sodium Potassium Chloride 108.4 H Carbon Dioxide BUN 84 H Creatinine 3.5 H Glucose 119 H POC Glucose 114 H Lactic Acid Calcium 8.1 L Phosphorus 5.10 H Magnesium Iron TIBC AST ALT Alkaline Phosphatase Lactate Dehydrogenase Total Creatine Kinase C-Reactive Protein Total Protein Albumin Prealbumin CA 19-9 Antigen Folate PTH Intact Urine WBC (Auto) Urine Creatinine Urine Chloride Urine Total Protein Fluid Glucose Fluid Total Protein Vancomycin Trough Miscellaneous Test Crossmatch 06/07/18 06/08/18 06/08/18 12:15 05:05 05:24 WBC RBC Hgb Hct MCV MCHC RDW Plt Count Lymph % (Auto) Price % (Auto) Lymph # Price # Seg Neutrophils % Seg Neuts % (Manual) Lymphocytes % (Manual) Monocytes % (Manual) Seg Neutrophils # Seg Neutrophils # Man Lymphocytes # (Manual) Monocytes # (Manual) PT INR APTT Heparin Anti-Xa Level POC ABG pH POC ABG pCO2 POC ABG pO2 Sodium 148 H Potassium Chloride 112.4 H Carbon Dioxide BUN 89 H Creatinine 3.4 H Glucose 120 H POC Glucose 148 H 115 H Lactic Acid Calcium 7.9 L Phosphorus Magnesium Iron TIBC AST ALT Alkaline Phosphatase Lactate Dehydrogenase Total Creatine Kinase C-Reactive Protein Total Protein Albumin Prealbumin CA 19-9 Antigen Folate PTH Intact Urine WBC (Auto) Urine Creatinine Urine Chloride Urine Total Protein Fluid Glucose Fluid Total Protein Vancomycin Trough Miscellaneous Test Crossmatch 06/08/18 06/08/18 06/08/18 21:36 21:43 21:43 WBC RBC 2.98 L Hgb 8.8 L Hct 26.6 L MCV MCHC RDW 16.7 H Plt Count 463 H Lymph % (Auto) 7.9 L Price % (Auto) Lymph # 0.8 L Price # Seg Neutrophils % 84.8 H Seg Neuts % (Manual) Lymphocytes % (Manual) Monocytes % (Manual) Seg Neutrophils # 8.6 H Seg Neutrophils # Man Lymphocytes # (Manual) Monocytes # (Manual) PT INR APTT Heparin Anti-Xa Level POC ABG pH POC ABG pCO2 POC ABG pO2 Sodium Potassium Chloride Carbon Dioxide BUN Creatinine Glucose POC Glucose Lactic Acid Calcium Phosphorus Magnesium Iron TIBC AST ALT Alkaline Phosphatase Lactate Dehydrogenase 297 H Total Creatine Kinase C-Reactive Protein Total Protein Albumin Prealbumin CA 19-9 Antigen 57 H Folate PTH Intact Urine WBC (Auto) Urine Creatinine Urine Chloride Urine Total Protein Fluid Glucose Fluid Total Protein Vancomycin Trough Miscellaneous Test Crossmatch 06/09/18 06/09/18 06/09/18 00:05 05:34 05:50 WBC RBC Hgb Hct MCV MCHC RDW Plt Count Lymph % (Auto) Price % (Auto) Lymph # Price # Seg Neutrophils % Seg Neuts % (Manual) Lymphocytes % (Manual) Monocytes % (Manual) Seg Neutrophils # Seg Neutrophils # Man Lymphocytes # (Manual) Monocytes # (Manual) PT INR APTT Heparin Anti-Xa Level POC ABG pH POC ABG pCO2 POC ABG pO2 Sodium 153 H Potassium Chloride 117.3 H Carbon Dioxide BUN 84 H Creatinine 3.2 H Glucose 117 H POC Glucose 140 H 146 H Lactic Acid Calcium 7.9 L Phosphorus Magnesium Iron TIBC AST ALT Alkaline Phosphatase Lactate Dehydrogenase Total Creatine Kinase C-Reactive Protein Total Protein Albumin Prealbumin CA 19-9 Antigen Folate PTH Intact Urine WBC (Auto) Urine Creatinine Urine Chloride Urine Total Protein Fluid Glucose Fluid Total Protein Vancomycin Trough Miscellaneous Test Crossmatch 06/09/18 06/09/18 06/09/18 05:50 07:37 10:34 WBC RBC 2.32 L Hgb 6.8 L Hct 20.7 L MCV MCHC RDW 16.7 H Plt Count Lymph % (Auto) Price % (Auto) Lymph # Price # Seg Neutrophils % Seg Neuts % (Manual) Lymphocytes % (Manual) Monocytes % (Manual) Seg Neutrophils # Seg Neutrophils # Man Lymphocytes # (Manual) Monocytes # (Manual) PT INR APTT Heparin Anti-Xa Level POC ABG pH POC ABG pCO2 POC ABG pO2 Sodium 149 H Potassium Chloride 114.6 H Carbon Dioxide BUN 84 H Creatinine 3.1 H Glucose 137 H POC Glucose Lactic Acid Calcium 7.7 L Phosphorus Magnesium Iron TIBC AST ALT Alkaline Phosphatase Lactate Dehydrogenase Total Creatine Kinase C-Reactive Protein Total Protein Albumin Prealbumin CA 19-9 Antigen Folate PTH Intact Urine WBC (Auto) Urine Creatinine Urine Chloride Urine Total Protein Fluid Glucose Fluid Total Protein Vancomycin Trough Miscellaneous Test Flexitest 1 H Crossmatch 06/09/18 06/09/18 06/09/18 10:41 11:56 13:24 WBC RBC 2.43 L Hgb 7.2 L Hct 21.6 L MCV MCHC RDW 16.8 H Plt Count Lymph % (Auto) Price % (Auto) Lymph # Price # Seg Neutrophils % Seg Neuts % (Manual) Lymphocytes % (Manual) Monocytes % (Manual) Seg Neutrophils # Seg Neutrophils # Man Lymphocytes # (Manual) Monocytes # (Manual) PT INR APTT Heparin Anti-Xa Level POC ABG pH POC ABG pCO2 POC ABG pO2 Sodium Potassium Chloride Carbon Dioxide BUN Creatinine Glucose POC Glucose 141 H Lactic Acid Calcium Phosphorus Magnesium Iron TIBC AST ALT Alkaline Phosphatase Lactate Dehydrogenase Total Creatine Kinase C-Reactive Protein Total Protein Albumin Prealbumin CA 19-9 Antigen Folate PTH Intact Urine WBC (Auto) Urine Creatinine Urine Chloride Urine Total Protein Fluid Glucose Fluid Total Protein Vancomycin Trough Miscellaneous Test Crossmatch See Detail 06/09/18 06/09/18 06/10/18 18:18 23:13 05:26 WBC RBC Hgb Hct MCV MCHC RDW Plt Count Lymph % (Auto) Price % (Auto) Lymph # Price # Seg Neutrophils % Seg Neuts % (Manual) Lymphocytes % (Manual) Monocytes % (Manual) Seg Neutrophils # Seg Neutrophils # Man Lymphocytes # (Manual) Monocytes # (Manual) PT INR APTT Heparin Anti-Xa Level POC ABG pH POC ABG pCO2 POC ABG pO2 Sodium 148 H Potassium Chloride 114.7 H Carbon Dioxide 21 L BUN 79 H Creatinine 3.2 H Glucose 121 H POC Glucose 156 H 163 H Lactic Acid Calcium 7.8 L Phosphorus Magnesium 1.60 L Iron TIBC AST ALT Alkaline Phosphatase Lactate Dehydrogenase Total Creatine Kinase C-Reactive Protein Total Protein Albumin Prealbumin CA 19-9 Antigen Folate PTH Intact Urine WBC (Auto) Urine Creatinine Urine Chloride Urine Total Protein Fluid Glucose Fluid Total Protein Vancomycin Trough Miscellaneous Test Crossmatch 06/10/18 06/10/18 06/10/18 05:26 05:31 17:15 WBC 11.1 H RBC 3.07 L Hgb 9.1 L Hct 27.6 L D MCV MCHC RDW 17.4 H Plt Count Lymph % (Auto) Price % (Auto) Lymph # Price # Seg Neutrophils % Seg Neuts % (Manual) Lymphocytes % (Manual) Monocytes % (Manual) Seg Neutrophils # Seg Neutrophils # Man Lymphocytes # (Manual) Monocytes # (Manual) PT INR APTT Heparin Anti-Xa Level POC ABG pH POC ABG pCO2 POC ABG pO2 Sodium Potassium Chloride Carbon Dioxide BUN Creatinine Glucose POC Glucose 128 H Lactic Acid Calcium Phosphorus Magnesium Iron TIBC AST ALT Alkaline Phosphatase Lactate Dehydrogenase Total Creatine Kinase C-Reactive Protein 3.60 H Total Protein Albumin Prealbumin CA 19-9 Antigen Folate PTH Intact Urine WBC (Auto) Urine Creatinine Urine Chloride Urine Total Protein Fluid Glucose Fluid Total Protein Vancomycin Trough Miscellaneous Test Crossmatch 06/11/18 06/11/18 06/11/18 01:13 05:41 05:41 WBC 14.6 H RBC 3.40 L Hgb 9.8 L Hct 30.7 L MCV MCHC RDW 18.1 H Plt Count Lymph % (Auto) Price % (Auto) Lymph # Price # Seg Neutrophils % Seg Neuts % (Manual) Lymphocytes % (Manual) Monocytes % (Manual) Seg Neutrophils # Seg Neutrophils # Man Lymphocytes # (Manual) Monocytes # (Manual) PT INR APTT Heparin Anti-Xa Level POC ABG pH POC ABG pCO2 POC ABG pO2 Sodium Potassium Chloride 110.8 H Carbon Dioxide 18 L BUN 77 H Creatinine 3.0 H Glucose 116 H POC Glucose 126 H Lactic Acid Calcium 7.9 L Phosphorus Magnesium Iron TIBC AST ALT Alkaline Phosphatase Lactate Dehydrogenase Total Creatine Kinase C-Reactive Protein Total Protein Albumin Prealbumin CA 19-9 Antigen Folate PTH Intact Urine WBC (Auto) Urine Creatinine Urine Chloride Urine Total Protein Fluid Glucose Fluid Total Protein Vancomycin Trough Miscellaneous Test Crossmatch 06/11/18 06/11/18 06/11/18 06:20 07:41 07:41 WBC RBC Hgb Hct MCV MCHC RDW Plt Count Lymph % (Auto) Price % (Auto) Lymph # Price # Seg Neutrophils % Seg Neuts % (Manual) Lymphocytes % (Manual) Monocytes % (Manual) Seg Neutrophils # Seg Neutrophils # Man Lymphocytes # (Manual) Monocytes # (Manual) PT INR APTT Heparin Anti-Xa Level POC ABG pH POC ABG pCO2 POC ABG pO2 Sodium Potassium Chloride Carbon Dioxide BUN Creatinine Glucose POC Glucose 136 H Lactic Acid Calcium Phosphorus Magnesium Iron TIBC AST ALT Alkaline Phosphatase Lactate Dehydrogenase Total Creatine Kinase C-Reactive Protein Total Protein Albumin Prealbumin CA 19-9 Antigen Folate PTH Intact Urine WBC (Auto) 10.0 H Urine Creatinine 41.2 H Urine Chloride 49.2 L Urine Total Protein 142 H Fluid Glucose Fluid Total Protein Vancomycin Trough Miscellaneous Test Crossmatch 06/11/18 06/12/18 06/12/18 18:35 00:34 04:12 WBC RBC 3.18 L Hgb 9.5 L Hct 28.7 L MCV MCHC RDW 18.5 H Plt Count Lymph % (Auto) 8.1 L Price % (Auto) Lymph # 0.9 L Price # Seg Neutrophils % 84.6 H Seg Neuts % (Manual) Lymphocytes % (Manual) Monocytes % (Manual) Seg Neutrophils # 9.1 H Seg Neutrophils # Man Lymphocytes # (Manual) Monocytes # (Manual) PT INR APTT Heparin Anti-Xa Level POC ABG pH POC ABG pCO2 POC ABG pO2 Sodium Potassium Chloride Carbon Dioxide BUN Creatinine Glucose POC Glucose 125 H 129 H Lactic Acid Calcium Phosphorus Magnesium Iron TIBC AST ALT Alkaline Phosphatase Lactate Dehydrogenase Total Creatine Kinase C-Reactive Protein Total Protein Albumin Prealbumin CA 19-9 Antigen Folate PTH Intact Urine WBC (Auto) Urine Creatinine Urine Chloride Urine Total Protein Fluid Glucose Fluid Total Protein Vancomycin Trough Miscellaneous Test Crossmatch 06/12/18 06/12/18 06/12/18 04:12 06:30 11:43 WBC RBC Hgb Hct MCV MCHC RDW Plt Count Lymph % (Auto) Price % (Auto) Lymph # Price # Seg Neutrophils % Seg Neuts % (Manual) Lymphocytes % (Manual) Monocytes % (Manual) Seg Neutrophils # Seg Neutrophils # Man Lymphocytes # (Manual) Monocytes # (Manual) PT INR APTT Heparin Anti-Xa Level POC ABG pH POC ABG pCO2 POC ABG pO2 Sodium Potassium Chloride 108.5 H Carbon Dioxide 21 L BUN 72 H Creatinine 3.0 H Glucose 122 H POC Glucose 129 H 126 H Lactic Acid Calcium 7.8 L Phosphorus Magnesium Iron TIBC AST 45 H ALT Alkaline Phosphatase 200 H Lactate Dehydrogenase Total Creatine Kinase 34 L C-Reactive Protein Total Protein Albumin 1.7 L Prealbumin CA 19-9 Antigen Folate PTH Intact Urine WBC (Auto) Urine Creatinine Urine Chloride Urine Total Protein Fluid Glucose Fluid Total Protein Vancomycin Trough Miscellaneous Test Crossmatch 06/12/18 06/12/18 06/13/18 16:00 23:56 03:44 WBC RBC Hgb Hct MCV MCHC RDW Plt Count Lymph % (Auto) Price % (Auto) Lymph # Price # Seg Neutrophils % Seg Neuts % (Manual) Lymphocytes % (Manual) Monocytes % (Manual) Seg Neutrophils # Seg Neutrophils # Man Lymphocytes # (Manual) Monocytes # (Manual) PT INR APTT Heparin Anti-Xa Level POC ABG pH POC ABG pCO2 POC ABG pO2 Sodium Potassium Chloride Carbon Dioxide BUN Creatinine Glucose POC Glucose 123 H 128 H 121 H Lactic Acid Calcium Phosphorus Magnesium Iron TIBC AST ALT Alkaline Phosphatase Lactate Dehydrogenase Total Creatine Kinase C-Reactive Protein Total Protein Albumin Prealbumin CA 19-9 Antigen Folate PTH Intact Urine WBC (Auto) Urine Creatinine Urine Chloride Urine Total Protein Fluid Glucose Fluid Total Protein Vancomycin Trough Miscellaneous Test Crossmatch 06/13/18 06/13/18 06/14/18 05:59 11:29 01:08 WBC RBC Hgb Hct MCV MCHC RDW Plt Count Lymph % (Auto) Price % (Auto) Lymph # Price # Seg Neutrophils % Seg Neuts % (Manual) Lymphocytes % (Manual) Monocytes % (Manual) Seg Neutrophils # Seg Neutrophils # Man Lymphocytes # (Manual) Monocytes # (Manual) PT INR APTT Heparin Anti-Xa Level POC ABG pH POC ABG pCO2 POC ABG pO2 Sodium 134 L Potassium Chloride Carbon Dioxide 20 L BUN 69 H Creatinine 2.9 H Glucose 113 H POC Glucose 124 H 128 H Lactic Acid Calcium 7.8 L Phosphorus Magnesium Iron TIBC AST ALT Alkaline Phosphatase Lactate Dehydrogenase Total Creatine Kinase C-Reactive Protein Total Protein Albumin Prealbumin CA 19-9 Antigen Folate PTH Intact Urine WBC (Auto) Urine Creatinine Urine Chloride Urine Total Protein Fluid Glucose Fluid Total Protein Vancomycin Trough Miscellaneous Test Crossmatch 06/14/18 06/14/18 06/14/18 06:42 06:42 09:50 WBC 11.3 H RBC 3.02 L Hgb 8.8 L Hct 27.3 L MCV MCHC RDW 18.6 H Plt Count Lymph % (Auto) Price % (Auto) Lymph # Price # Seg Neutrophils % Seg Neuts % (Manual) Lymphocytes % (Manual) Monocytes % (Manual) Seg Neutrophils # Seg Neutrophils # Man Lymphocytes # (Manual) Monocytes # (Manual) PT 16.3 H INR 1.24 H APTT Heparin Anti-Xa Level POC ABG pH POC ABG pCO2 POC ABG pO2 Sodium 132 L Potassium Chloride Carbon Dioxide 19 L BUN 71 H Creatinine 3.1 H Glucose POC Glucose Lactic Acid Calcium 7.8 L Phosphorus Magnesium Iron TIBC AST ALT Alkaline Phosphatase Lactate Dehydrogenase Total Creatine Kinase C-Reactive Protein Total Protein Albumin Prealbumin CA 19-9 Antigen Folate PTH Intact Urine WBC (Auto) Urine Creatinine Urine Chloride Urine Total Protein Fluid Glucose Fluid Total Protein Vancomycin Trough Miscellaneous Test Crossmatch 06/14/18 06/14/18 06/15/18 12:31 17:04 01:18 WBC RBC Hgb Hct MCV MCHC RDW Plt Count Lymph % (Auto) Price % (Auto) Lymph # Price # Seg Neutrophils % Seg Neuts % (Manual) Lymphocytes % (Manual) Monocytes % (Manual) Seg Neutrophils # Seg Neutrophils # Man Lymphocytes # (Manual) Monocytes # (Manual) PT INR APTT Heparin Anti-Xa Level POC ABG pH POC ABG pCO2 POC ABG pO2 Sodium Potassium Chloride Carbon Dioxide BUN Creatinine Glucose POC Glucose 125 H 109 H 124 H Lactic Acid Calcium Phosphorus Magnesium Iron TIBC AST ALT Alkaline Phosphatase Lactate Dehydrogenase Total Creatine Kinase C-Reactive Protein Total Protein Albumin Prealbumin CA 19-9 Antigen Folate PTH Intact Urine WBC (Auto) Urine Creatinine Urine Chloride Urine Total Protein Fluid Glucose Fluid Total Protein Vancomycin Trough Miscellaneous Test Crossmatch 06/15/18 06/15/18 06/15/18 05:27 06:34 11:42 WBC RBC Hgb Hct MCV MCHC RDW Plt Count Lymph % (Auto) Price % (Auto) Lymph # Price # Seg Neutrophils % Seg Neuts % (Manual) Lymphocytes % (Manual) Monocytes % (Manual) Seg Neutrophils # Seg Neutrophils # Man Lymphocytes # (Manual) Monocytes # (Manual) PT INR APTT Heparin Anti-Xa Level POC ABG pH POC ABG pCO2 POC ABG pO2 Sodium 134 L Potassium Chloride Carbon Dioxide 17 L BUN 77 H Creatinine 3.2 H Glucose 110 H POC Glucose 116 H 131 H Lactic Acid Calcium 8.1 L Phosphorus 6.20 H D Magnesium Iron TIBC AST ALT Alkaline Phosphatase Lactate Dehydrogenase Total Creatine Kinase C-Reactive Protein Total Protein Albumin Prealbumin CA 19-9 Antigen Folate PTH Intact Urine WBC (Auto) Urine Creatinine Urine Chloride Urine Total Protein Fluid Glucose Fluid Total Protein Vancomycin Trough Miscellaneous Test Crossmatch 06/16/18 06/16/18 06/16/18 00:57 05:10 06:07 WBC RBC Hgb Hct MCV MCHC RDW Plt Count Lymph % (Auto) Price % (Auto) Lymph # Price # Seg Neutrophils % Seg Neuts % (Manual) Lymphocytes % (Manual) Monocytes % (Manual) Seg Neutrophils # Seg Neutrophils # Man Lymphocytes # (Manual) Monocytes # (Manual) PT INR APTT Heparin Anti-Xa Level POC ABG pH POC ABG pCO2 POC ABG pO2 Sodium 132 L Potassium Chloride Carbon Dioxide 19 L BUN 83 H Creatinine 3.2 H Glucose 113 H POC Glucose 137 H 109 H Lactic Acid Calcium 7.8 L Phosphorus 6.10 H Magnesium Iron TIBC AST ALT Alkaline Phosphatase Lactate Dehydrogenase Total Creatine Kinase C-Reactive Protein Total Protein Albumin Prealbumin CA 19-9 Antigen Folate PTH Intact Urine WBC (Auto) Urine Creatinine Urine Chloride Urine Total Protein Fluid Glucose Fluid Total Protein Vancomycin Trough Miscellaneous Test Crossmatch 06/16/18 06/16/18 06/17/18 11:51 15:46 00:02 WBC RBC Hgb Hct MCV MCHC RDW Plt Count Lymph % (Auto) Price % (Auto) Lymph # Price # Seg Neutrophils % Seg Neuts % (Manual) Lymphocytes % (Manual) Monocytes % (Manual) Seg Neutrophils # Seg Neutrophils # Man Lymphocytes # (Manual) Monocytes # (Manual) PT INR APTT Heparin Anti-Xa Level POC ABG pH POC ABG pCO2 POC ABG pO2 Sodium Potassium Chloride Carbon Dioxide BUN Creatinine Glucose POC Glucose 126 H 127 H 107 H Lactic Acid Calcium Phosphorus Magnesium Iron TIBC AST ALT Alkaline Phosphatase Lactate Dehydrogenase Total Creatine Kinase C-Reactive Protein Total Protein Albumin Prealbumin CA 19-9 Antigen Folate PTH Intact Urine WBC (Auto) Urine Creatinine Urine Chloride Urine Total Protein Fluid Glucose Fluid Total Protein Vancomycin Trough Miscellaneous Test Crossmatch 06/17/18 06/17/18 06/17/18 05:52 11:46 16:58 WBC RBC Hgb Hct MCV MCHC RDW Plt Count Lymph % (Auto) Price % (Auto) Lymph # Price # Seg Neutrophils % Seg Neuts % (Manual) Lymphocytes % (Manual) Monocytes % (Manual) Seg Neutrophils # Seg Neutrophils # Man Lymphocytes # (Manual) Monocytes # (Manual) PT INR APTT Heparin Anti-Xa Level POC ABG pH POC ABG pCO2 POC ABG pO2 Sodium 133 L Potassium Chloride Carbon Dioxide 17 L BUN 87 H Creatinine 3.2 H Glucose POC Glucose 129 H 140 H Lactic Acid Calcium 8.1 L Phosphorus 6.50 H Magnesium Iron TIBC AST ALT Alkaline Phosphatase Lactate Dehydrogenase Total Creatine Kinase C-Reactive Protein Total Protein Albumin Prealbumin 0.130 L CA 19-9 Antigen Folate PTH Intact Urine WBC (Auto) Urine Creatinine Urine Chloride Urine Total Protein Fluid Glucose Fluid Total Protein Vancomycin Trough Miscellaneous Test Crossmatch 06/18/18 06/18/18 06/18/18 04:04 04:04 14:15 WBC RBC 3.00 L Hgb 8.9 L Hct 26.5 L MCV MCHC RDW 17.8 H Plt Count 494 H Lymph % (Auto) 7.9 L Price % (Auto) 9.3 H Lymph # 0.8 L Price # 1.0 H Seg Neutrophils % 81.2 H Seg Neuts % (Manual) Lymphocytes % (Manual) Monocytes % (Manual) Seg Neutrophils # 8.6 H Seg Neutrophils # Man Lymphocytes # (Manual) Monocytes # (Manual) PT INR APTT Heparin Anti-Xa Level POC ABG pH POC ABG pCO2 POC ABG pO2 Sodium 128 L Potassium Chloride Carbon Dioxide 18 L BUN 88 H Creatinine 3.1 H Glucose 129 H POC Glucose 143 H Lactic Acid Calcium 7.8 L Phosphorus 6.20 H Magnesium Iron TIBC AST ALT Alkaline Phosphatase Lactate Dehydrogenase Total Creatine Kinase C-Reactive Protein Total Protein Albumin Prealbumin CA 19-9 Antigen Folate PTH Intact Urine WBC (Auto) Urine Creatinine Urine Chloride Urine Total Protein Fluid Glucose Fluid Total Protein Vancomycin Trough Miscellaneous Test Crossmatch 06/18/18 06/19/18 06/19/18 17:54 01:45 06:20 WBC RBC Hgb Hct MCV MCHC RDW Plt Count Lymph % (Auto) Price % (Auto) Lymph # Price # Seg Neutrophils % Seg Neuts % (Manual) Lymphocytes % (Manual) Monocytes % (Manual) Seg Neutrophils # Seg Neutrophils # Man Lymphocytes # (Manual) Monocytes # (Manual) PT INR APTT Heparin Anti-Xa Level POC ABG pH POC ABG pCO2 POC ABG pO2 Sodium Potassium Chloride 93.9 L Carbon Dioxide BUN 78 H Creatinine 2.8 H Glucose POC Glucose 138 H 141 H Lactic Acid Calcium 7.1 L Phosphorus 6.40 H Magnesium Iron TIBC AST ALT Alkaline Phosphatase Lactate Dehydrogenase Total Creatine Kinase C-Reactive Protein Total Protein Albumin Prealbumin CA 19-9 Antigen Folate PTH Intact Urine WBC (Auto) Urine Creatinine Urine Chloride Urine Total Protein Fluid Glucose Fluid Total Protein Vancomycin Trough Miscellaneous Test Crossmatch 06/19/18 06/19/18 06/19/18 06:49 07:59 16:32 WBC RBC Hgb Hct MCV MCHC RDW Plt Count Lymph % (Auto) Price % (Auto) Lymph # Price # Seg Neutrophils % Seg Neuts % (Manual) Lymphocytes % (Manual) Monocytes % (Manual) Seg Neutrophils # Seg Neutrophils # Man Lymphocytes # (Manual) Monocytes # (Manual) PT INR APTT Heparin Anti-Xa Level POC ABG pH POC ABG pCO2 POC ABG pO2 Sodium Potassium Chloride Carbon Dioxide BUN 80 H Creatinine 2.9 H Glucose 123 H POC Glucose 130 H 134 H Lactic Acid Calcium 7.7 L Phosphorus Magnesium Iron TIBC AST ALT Alkaline Phosphatase Lactate Dehydrogenase Total Creatine Kinase C-Reactive Protein Total Protein Albumin Prealbumin CA 19-9 Antigen Folate PTH Intact Urine WBC (Auto) Urine Creatinine Urine Chloride Urine Total Protein Fluid Glucose Fluid Total Protein Vancomycin Trough Miscellaneous Test Crossmatch 06/20/18 06/20/18 06/20/18 00:11 05:55 05:55 WBC RBC 2.73 L Hgb 8.0 L Hct 24.2 L MCV MCHC RDW 17.4 H Plt Count 512 H Lymph % (Auto) 12.3 L Price % (Auto) 11.3 H Lymph # 1.1 L Price # 1.0 H Seg Neutrophils % 74.8 H Seg Neuts % (Manual) Lymphocytes % (Manual) Monocytes % (Manual) Seg Neutrophils # Seg Neutrophils # Man Lymphocytes # (Manual) Monocytes # (Manual) PT INR APTT Heparin Anti-Xa Level POC ABG pH POC ABG pCO2 POC ABG pO2 Sodium Potassium Chloride Carbon Dioxide 32 H BUN 70 H Creatinine 2.5 H Glucose 105 H POC Glucose 131 H Lactic Acid Calcium 8.0 L Phosphorus Magnesium Iron TIBC AST ALT Alkaline Phosphatase Lactate Dehydrogenase Total Creatine Kinase C-Reactive Protein Total Protein Albumin Prealbumin CA 19-9 Antigen Folate PTH Intact Urine WBC (Auto) Urine Creatinine Urine Chloride Urine Total Protein Fluid Glucose Fluid Total Protein Vancomycin Trough Miscellaneous Test Crossmatch 06/20/18 06/20/18 06/20/18 05:55 12:10 16:01 WBC RBC Hgb Hct MCV MCHC RDW Plt Count Lymph % (Auto) Price % (Auto) Lymph # Price # Seg Neutrophils % Seg Neuts % (Manual) Lymphocytes % (Manual) Monocytes % (Manual) Seg Neutrophils # Seg Neutrophils # Man Lymphocytes # (Manual) Monocytes # (Manual) PT INR APTT Heparin Anti-Xa Level POC ABG pH POC ABG pCO2 POC ABG pO2 Sodium Potassium Chloride Carbon Dioxide BUN Creatinine Glucose POC Glucose 112 H 127 H 145 H Lactic Acid Calcium Phosphorus Magnesium Iron TIBC AST ALT Alkaline Phosphatase Lactate Dehydrogenase Total Creatine Kinase C-Reactive Protein Total Protein Albumin Prealbumin CA 19-9 Antigen Folate PTH Intact Urine WBC (Auto) Urine Creatinine Urine Chloride Urine Total Protein Fluid Glucose Fluid Total Protein Vancomycin Trough Miscellaneous Test Crossmatch 06/20/18 06/21/18 06/21/18 23:54 05:50 05:50 WBC RBC 2.57 L Hgb 7.7 L Hct 26.6 L MCV 104 H MCHC 29 L RDW 19.1 H Plt Count 521 H Lymph % (Auto) 10.0 L Price % (Auto) 7.4 H Lymph # 1.0 L Price # Seg Neutrophils % 81.3 H Seg Neuts % (Manual) Lymphocytes % (Manual) Monocytes % (Manual) Seg Neutrophils # 7.9 H Seg Neutrophils # Man Lymphocytes # (Manual) Monocytes # (Manual) PT INR APTT Heparin Anti-Xa Level POC ABG pH POC ABG pCO2 POC ABG pO2 Sodium Potassium 5.8 H D Chloride 90.3 L Carbon Dioxide 37 H BUN 57 H Creatinine 1.9 H Glucose POC Glucose 154 H Lactic Acid Calcium 7.3 L Phosphorus Magnesium Iron TIBC AST 50 H ALT Alkaline Phosphatase 190 H Lactate Dehydrogenase Total Creatine Kinase C-Reactive Protein Total Protein Albumin 1.8 L Prealbumin CA 19-9 Antigen Folate PTH Intact Urine WBC (Auto) Urine Creatinine Urine Chloride Urine Total Protein Fluid Glucose Fluid Total Protein Vancomycin Trough Miscellaneous Test Crossmatch 06/21/18 06/21/18 06/21/18 06:57 13:37 17:00 WBC RBC Hgb Hct MCV MCHC RDW Plt Count Lymph % (Auto) Price % (Auto) Lymph # Price # Seg Neutrophils % Seg Neuts % (Manual) Lymphocytes % (Manual) Monocytes % (Manual) Seg Neutrophils # Seg Neutrophils # Man Lymphocytes # (Manual) Monocytes # (Manual) PT INR APTT Heparin Anti-Xa Level POC ABG pH POC ABG pCO2 POC ABG pO2 Sodium Potassium Chloride Carbon Dioxide BUN Creatinine Glucose 111 H POC Glucose 141 H 148 H Lactic Acid Calcium Phosphorus Magnesium Iron TIBC AST ALT Alkaline Phosphatase Lactate Dehydrogenase Total Creatine Kinase C-Reactive Protein Total Protein Albumin Prealbumin CA 19-9 Antigen Folate PTH Intact Urine WBC (Auto) Urine Creatinine Urine Chloride Urine Total Protein Fluid Glucose Fluid Total Protein Vancomycin Trough Miscellaneous Test Crossmatch 06/21/18 06/21/18 06/22/18 17:27 22:01 06:02 WBC RBC Hgb Hct MCV MCHC RDW Plt Count Lymph % (Auto) Price % (Auto) Lymph # Price # Seg Neutrophils % Seg Neuts % (Manual) Lymphocytes % (Manual) Monocytes % (Manual) Seg Neutrophils # Seg Neutrophils # Man Lymphocytes # (Manual) Monocytes # (Manual) PT INR APTT Heparin Anti-Xa Level POC ABG pH POC ABG pCO2 POC ABG pO2 Sodium Potassium 3.2 L Chloride Carbon Dioxide 39 H BUN 53 H Creatinine 1.9 H Glucose 1348 H* POC Glucose 130 H 122 H Lactic Acid Calcium 7.5 L Phosphorus Magnesium Iron TIBC AST ALT Alkaline Phosphatase Lactate Dehydrogenase Total Creatine Kinase C-Reactive Protein Total Protein Albumin Prealbumin CA 19-9 Antigen Folate PTH Intact Urine WBC (Auto) Urine Creatinine Urine Chloride Urine Total Protein Fluid Glucose Fluid Total Protein Vancomycin Trough Miscellaneous Test Crossmatch 06/22/18 06/22/18 06/22/18 06:16 07:26 07:48 WBC RBC Hgb Hct MCV MCHC RDW Plt Count Lymph % (Auto) Price % (Auto) Lymph # Price # Seg Neutrophils % Seg Neuts % (Manual) Lymphocytes % (Manual) Monocytes % (Manual) Seg Neutrophils # Seg Neutrophils # Man Lymphocytes # (Manual) Monocytes # (Manual) PT INR APTT Heparin Anti-Xa Level POC ABG pH POC ABG pCO2 POC ABG pO2 Sodium Potassium Chloride Carbon Dioxide 37 H BUN 57 H Creatinine 1.9 H Glucose 147 H POC Glucose 148 H 153 H Lactic Acid Calcium 8.3 L Phosphorus Magnesium Iron TIBC AST ALT Alkaline Phosphatase Lactate Dehydrogenase Total Creatine Kinase C-Reactive Protein Total Protein Albumin Prealbumin CA 19-9 Antigen Folate PTH Intact Urine WBC (Auto) Urine Creatinine Urine Chloride Urine Total Protein Fluid Glucose Fluid Total Protein Vancomycin Trough Miscellaneous Test Crossmatch 06/22/18 06/22/18 06/22/18 11:26 16:26 23:57 WBC RBC Hgb Hct MCV MCHC RDW Plt Count Lymph % (Auto) Price % (Auto) Lymph # Price # Seg Neutrophils % Seg Neuts % (Manual) Lymphocytes % (Manual) Monocytes % (Manual) Seg Neutrophils # Seg Neutrophils # Man Lymphocytes # (Manual) Monocytes # (Manual) PT INR APTT Heparin Anti-Xa Level POC ABG pH POC ABG pCO2 POC ABG pO2 Sodium Potassium Chloride Carbon Dioxide BUN Creatinine Glucose POC Glucose 121 H 122 H 180 H Lactic Acid Calcium Phosphorus Magnesium Iron TIBC AST ALT Alkaline Phosphatase Lactate Dehydrogenase Total Creatine Kinase C-Reactive Protein Total Protein Albumin Prealbumin CA 19-9 Antigen Folate PTH Intact Urine WBC (Auto) Urine Creatinine Urine Chloride Urine Total Protein Fluid Glucose Fluid Total Protein Vancomycin Trough Miscellaneous Test Crossmatch 06/22/18 06/23/18 06/23/18 23:57 00:30 01:40 WBC RBC Hgb Hct MCV MCHC RDW Plt Count Lymph % (Auto) Price % (Auto) Lymph # Price # Seg Neutrophils % Seg Neuts % (Manual) Lymphocytes % (Manual) Monocytes % (Manual) Seg Neutrophils # Seg Neutrophils # Man Lymphocytes # (Manual) Monocytes # (Manual) PT INR APTT Heparin Anti-Xa Level POC ABG pH 7.195 L 7.235 L POC ABG pCO2 105.2 H 95.7 H POC ABG pO2 Sodium Potassium Chloride Carbon Dioxide BUN Creatinine Glucose POC Glucose Lactic Acid Calcium Phosphorus Magnesium Iron TIBC AST ALT Alkaline Phosphatase Lactate Dehydrogenase Total Creatine Kinase C-Reactive Protein Total Protein Albumin Prealbumin CA 19-9 Antigen Folate PTH Intact Urine WBC (Auto) Urine Creatinine 99.7 H Urine Chloride 10.0 L Urine Total Protein 272 H Fluid Glucose Fluid Total Protein Vancomycin Trough Miscellaneous Test Crossmatch 06/23/18 06/23/18 06/23/18 05:58 07:20 08:31 WBC 16.0 H RBC 2.35 L Hgb 6.7 L Hct 22.3 L MCV 95 H MCHC 30 L RDW 18.5 H Plt Count 512 H Lymph % (Auto) Price % (Auto) Lymph # Price # Seg Neutrophils % Seg Neuts % (Manual) Lymphocytes % (Manual) Monocytes % (Manual) Seg Neutrophils # Seg Neutrophils # Man Lymphocytes # (Manual) Monocytes # (Manual) PT INR APTT Heparin Anti-Xa Level POC ABG pH POC ABG pCO2 POC ABG pO2 Sodium Potassium Chloride Carbon Dioxide BUN Creatinine Glucose POC Glucose 116 H 123 H Lactic Acid Calcium Phosphorus Magnesium Iron TIBC AST ALT Alkaline Phosphatase Lactate Dehydrogenase Total Creatine Kinase C-Reactive Protein Total Protein Albumin Prealbumin CA 19-9 Antigen Folate PTH Intact Urine WBC (Auto) Urine Creatinine Urine Chloride Urine Total Protein Fluid Glucose Fluid Total Protein Vancomycin Trough Miscellaneous Test Crossmatch 06/23/18 06/23/18 06/23/18 08:31 08:34 08:34 WBC RBC Hgb Hct MCV MCHC RDW Plt Count 485 H Lymph % (Auto) Price % (Auto) Lymph # Price # Seg Neutrophils % Seg Neuts % (Manual) Lymphocytes % (Manual) Monocytes % (Manual) Seg Neutrophils # Seg Neutrophils # Man Lymphocytes # (Manual) Monocytes # (Manual) PT 15.2 H INR 1.15 H APTT 41.9 H Heparin Anti-Xa Level POC ABG pH POC ABG pCO2 POC ABG pO2 Sodium 148 H Potassium Chloride Carbon Dioxide BUN 59 H Creatinine 2.2 H Glucose 106 H POC Glucose Lactic Acid Calcium 8.2 L Phosphorus 6.60 H Magnesium Iron TIBC AST 46 H ALT Alkaline Phosphatase 188 H Lactate Dehydrogenase Total Creatine Kinase C-Reactive Protein Total Protein Albumin 1.6 L Prealbumin CA 19-9 Antigen Folate PTH Intact Urine WBC (Auto) Urine Creatinine Urine Chloride Urine Total Protein Fluid Glucose Fluid Total Protein Vancomycin Trough Miscellaneous Test Crossmatch 06/23/18 06/23/18 06/23/18 09:29 09:40 09:43 WBC RBC Hgb Hct MCV MCHC RDW Plt Count Lymph % (Auto) Price % (Auto) Lymph # Price # Seg Neutrophils % Seg Neuts % (Manual) Lymphocytes % (Manual) Monocytes % (Manual) Seg Neutrophils # Seg Neutrophils # Man Lymphocytes # (Manual) Monocytes # (Manual) PT INR APTT Heparin Anti-Xa Level POC ABG pH 7.521 H POC ABG pCO2 53.6 H 48.4 H POC ABG pO2 37 L 181 H Sodium Potassium Chloride Carbon Dioxide BUN Creatinine Glucose POC Glucose Lactic Acid Calcium Phosphorus Magnesium Iron TIBC AST ALT Alkaline Phosphatase Lactate Dehydrogenase Total Creatine Kinase C-Reactive Protein Total Protein Albumin Prealbumin CA 19-9 Antigen Folate PTH Intact Urine WBC (Auto) Urine Creatinine Urine Chloride Urine Total Protein Fluid Glucose Fluid Total Protein Vancomycin Trough Miscellaneous Test Crossmatch See Detail 06/23/18 06/23/18 06/23/18 17:03 17:03 18:33 WBC 22.2 H RBC 2.85 L Hgb 8.4 L Hct 25.6 L MCV MCHC RDW 17.6 H Plt Count 515 H Lymph % (Auto) Price % (Auto) Lymph # Price # Seg Neutrophils % Seg Neuts % (Manual) Lymphocytes % (Manual) Monocytes % (Manual) Seg Neutrophils # Seg Neutrophils # Man Lymphocytes # (Manual) Monocytes # (Manual) PT INR APTT Heparin Anti-Xa Level 0.13 L POC ABG pH POC ABG pCO2 POC ABG pO2 Sodium Potassium Chloride Carbon Dioxide BUN Creatinine Glucose POC Glucose < 40 L Lactic Acid Calcium Phosphorus Magnesium Iron TIBC AST ALT Alkaline Phosphatase Lactate Dehydrogenase Total Creatine Kinase C-Reactive Protein Total Protein Albumin Prealbumin CA 19-9 Antigen Folate PTH Intact Urine WBC (Auto) Urine Creatinine Urine Chloride Urine Total Protein Fluid Glucose Fluid Total Protein Vancomycin Trough Miscellaneous Test Crossmatch 06/23/18 06/23/18 06/24/18 23:53 Unknown 00:30 WBC RBC Hgb Hct MCV MCHC RDW Plt Count Lymph % (Auto) Price % (Auto) Lymph # Price # Seg Neutrophils % Seg Neuts % (Manual) Lymphocytes % (Manual) Monocytes % (Manual) Seg Neutrophils # Seg Neutrophils # Man Lymphocytes # (Manual) Monocytes # (Manual) PT INR APTT Heparin Anti-Xa Level POC ABG pH POC ABG pCO2 POC ABG pO2 Sodium 148 H Potassium Chloride Carbon Dioxide 36 H BUN 57 H Creatinine 1.9 H Glucose POC Glucose 140 H Lactic Acid Calcium 8.3 L Phosphorus Magnesium Iron TIBC AST ALT Alkaline Phosphatase Lactate Dehydrogenase Total Creatine Kinase C-Reactive Protein Total Protein Albumin Prealbumin CA 19-9 Antigen Folate PTH Intact Urine WBC (Auto) 8.0 H Urine Creatinine Urine Chloride Urine Total Protein Fluid Glucose Fluid Total Protein Vancomycin Trough Miscellaneous Test Crossmatch 06/24/18 06/24/18 06/24/18 00:40 04:30 04:30 WBC 26.9 H RBC 2.79 L Hgb 8.1 L Hct 25.0 L MCV MCHC RDW 17.5 H Plt Count 487 H Lymph % (Auto) Price % (Auto) Lymph # Price # Seg Neutrophils % Seg Neuts % (Manual) Lymphocytes % (Manual) 6.0 L Monocytes % (Manual) 8.0 H Seg Neutrophils # Seg Neutrophils # Man 16.9 H Lymphocytes # (Manual) Monocytes # (Manual) 2.2 H PT INR APTT Heparin Anti-Xa Level 0.13 L POC ABG pH POC ABG pCO2 POC ABG pO2 Sodium 151 H Potassium Chloride Carbon Dioxide 36 H D BUN 74 H Creatinine 2.9 H Glucose 126 H POC Glucose Lactic Acid Calcium 8.2 L Phosphorus Magnesium Iron TIBC AST ALT Alkaline Phosphatase Lactate Dehydrogenase Total Creatine Kinase C-Reactive Protein Total Protein Albumin Prealbumin CA 19-9 Antigen Folate PTH Intact Urine WBC (Auto) Urine Creatinine Urine Chloride Urine Total Protein Fluid Glucose Fluid Total Protein Vancomycin Trough Miscellaneous Test Crossmatch 06/24/18 06/24/18 06/24/18 04:33 06:41 08:00 WBC RBC Hgb Hct MCV MCHC RDW Plt Count Lymph % (Auto) Price % (Auto) Lymph # Price # Seg Neutrophils % Seg Neuts % (Manual) Lymphocytes % (Manual) Monocytes % (Manual) Seg Neutrophils # Seg Neutrophils # Man Lymphocytes # (Manual) Monocytes # (Manual) PT INR APTT Heparin Anti-Xa Level 0.21 L POC ABG pH 7.517 H POC ABG pCO2 50.9 H POC ABG pO2 170 H Sodium Potassium Chloride Carbon Dioxide BUN Creatinine Glucose POC Glucose 140 H Lactic Acid Calcium Phosphorus Magnesium Iron TIBC AST ALT Alkaline Phosphatase Lactate Dehydrogenase Total Creatine Kinase C-Reactive Protein Total Protein Albumin Prealbumin CA 19-9 Antigen Folate PTH Intact Urine WBC (Auto) Urine Creatinine Urine Chloride Urine Total Protein Fluid Glucose Fluid Total Protein Vancomycin Trough Miscellaneous Test Crossmatch 06/24/18 06/24/18 12:27 14:20 WBC RBC Hgb Hct MCV MCHC RDW Plt Count Lymph % (Auto) Price % (Auto) Lymph # Price # Seg Neutrophils % Seg Neuts % (Manual) Lymphocytes % (Manual) Monocytes % (Manual) Seg Neutrophils # Seg Neutrophils # Man Lymphocytes # (Manual) Monocytes # (Manual) PT INR APTT Heparin Anti-Xa Level 0.28 L POC ABG pH POC ABG pCO2 POC ABG pO2 Sodium Potassium Chloride Carbon Dioxide BUN Creatinine Glucose POC Glucose 216 H Lactic Acid Calcium Phosphorus Magnesium Iron TIBC AST ALT Alkaline Phosphatase Lactate Dehydrogenase Total Creatine Kinase C-Reactive Protein Total Protein Albumin Prealbumin CA 19-9 Antigen Folate PTH Intact Urine WBC (Auto) Urine Creatinine Urine Chloride Urine Total Protein Fluid Glucose Fluid Total Protein Vancomycin Trough Miscellaneous Test Crossmatch Assessment and Plan This 52 yr old male suffered a respiratory arrest on 06/23/18, in the setting of evaluation and treatment for the following medical problems: Metabolic alkalosis, Sepsis/Leukocytosis, Candiduria.Pelvic mass, - 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 Freeman. At the present time he is displaying no brainstem function. An EEG done this pm is without evidence of cortical activity. Recommend - supportive care. Will speak with family.
[2018-06-24] MEDS ORDERED: SODIUM CHLORIDE FLUSH SYRINGE 10 ML IV ONE (16:00)
--- NOTE | 2018-06-24 16:59 | Event Note ---
Date: 06/23/18 Fan inocente was called on 06/23/18 at 7:17 AM for PEA and I run the code according to the ACLS protocol and I signed off to Dr Smiley who is the regular attending for the patient.
--- NOTE | 2018-06-24 17:51 | Post Operative Note ---
Date of procedure: 06/24/18 Pre-op diagnosis: ARF Post-op diagnosis: same Procedure: Placement of a left common femoral vein 30 cm 13 Fr trialysis catheter under ultrasound guidance Anesthesia: local Surgeon: BENTLEY STARR Estimated blood loss: minimal Condition: stable Disposition: no change
--- NOTE | 2018-06-24 17:51 | Operative Report ---
Operative Report Operative Report: EXAM: 1. Ultrasound-guided puncture of the left common femoral vein 2. Placement of a left common femoral vein nontunneled noncuffed hemodialysis catheter. DATE: 06/24/18 INDICATION: Acute renal failure requiring hemodialysis access. Patient is on active heparin and therefore a femoral approach was selected. MEDICATIONS: Local anesthetic (1% lidocaine). DEVICES: 30 cm triple lumen nontunneled noncuffed hemodialysis catheter INSPECTOR FINISHING: BENTLEY STARR MD CONTRAST: None PROCEDURE: The risks, benefits, and alternatives were discussed and informed consent was obtained. The patient's left common femoral vein was assessed with ultrasound at bedside and determined to be patent prior to procedure. The patient was prepped and draped in a sterile fashion. The puncture site was anesthetized. Under sonographic guidance, the right internal jugular vein was punctured with a 18-gauge micropuncture needle and a 0.035 inch wire was advanced through the needle. Over the 0.035 inch wire, dilatation was performed. The catheter was advanced over the wire. 3-0 nylon suture was used to secure the catheter. The catheter was charged with 1000 units of heparin per mL of space. Biopatch and tegaderm were applied. FINDINGS: 1. Ultrasound documented patency of the left common femoral vein. The vessel was accessed under direct ultrasound guidance. IMPRESSION: 1. Successful ultrasound guided bedside placement of a left common femoral vein nontunneled noncuffed triple lumen hemodialysis catheter.
[2018-06-24] MEDS ORDERED: TPN ADULT 2,016 ML IV SCH (20:00)
--- NOTE | 2018-06-24 21:32 | Hem/Onc Progress Note ---
Assessment and Plan s/p code -pt on vent #bowel obstruction - s/p diverting colostomy 05/26 sx notes -mentions matted mass #radiology Pelvic mass Large pelvic mass between bladder and rectum with large lymph nodes, s/p cystoscopy prostate area bx - sq cell features- anal vs lung path from ascites and pleural fluid reviewed # CT had shown bowel obstruction - s/p diverting colostomy # anemia - PRBC as needed low folate - on replacement # h/o leukocytosis on 05/22 - we will follow - likely reactive # h/o Acute kidney injury due to pelvic mass - Nephrology following. Ultrasound Kidneys showed bilat hydronephrosis CT Abd shows Pelvic mass with multiple large lymph nodes Had bilateral nephrostomy tubes placed 05/14/[address] Freeman. 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 Pt transferred to ICU has he was SOB - intubated - 06/23 06/24 - non responsive - neurology consulted - Patient Problems (1) Pelvic mass in male Current Visit: Yes Status: Acute Subjective Date of service: 06/24/18 Principal diagnosis: sq cell ca - prostate area Interval history: pt had diverting colostomy 05/26 had code - transferred to ICU not verbalizing - 06/24 Objective - Constitutional Vitals: Last Vital Signs Temp 97.2 F L 06/24/18 20:00 Pulse 79 06/24/18 21:15 Resp 24 06/24/18 21:15 BP 119/91 06/24/18 21:15 Pulse Ox 100 06/24/18 21:15 General appearance: other (on vent) Performance status: 4-completely disabled - EENT ENT: other (no bleeding - intubated) Lymph node exam: negative cervical, negative supraclavicular - Respiratory Respiratory: bilateral: CTA (on vent) - Cardiovascular Heart Sounds: Present: S1 & S2 Extremities: No edema - Gastrointestinal General gastrointestinal: Present: soft, other (colostomy) Rectal Exam: deferred - Genitourinary Male genitourinary: Present: deferred - Neurologic Neurologic: other (on vent - not responding) - Labs Lab Results: Laboratory Results - last 24 hr 06/23/18 06/23/18 06/24/18 00:30 23:53 00:30 WBC RBC Hgb Hct MCV MCH MCHC RDW Plt Count Add Manual Diff Total Counted Seg Neuts % (Manual) Band Neutrophils % Lymphocytes % (Manual) Reactive Lymphs % (Man) Monocytes % (Manual) Eosinophils % (Manual) Basophils % (Manual) Metamyelocytes % Myelocytes % Promyelocytes % Blast Cells % Nucleated RBC % Seg Neutrophils # Man Band Neutrophils # Lymphocytes # (Manual) Abs React Lymphs (Man) Monocytes # (Manual) Eosinophils # (Manual) Basophils # (Manual) Metamyelocytes # Myelocytes # Promyelocytes # Blast Cells # WBC Morphology Hypersegmented Neuts Hyposegmented Neuts Hypogranular Neuts Smudge Cells Toxic Granulation Toxic Vacuolation Dohle Bodies Pelger-Huet Anomaly Mahesh Rods Platelet Estimate Clumped Platelets Plt Clumps, EDTA Large Platelets Giant Platelets Platelet Satelliting Plt Morphology Comment RBC Morphology Dimorphic RBCs Polychromasia Hypochromasia Poikilocytosis Anisocytosis Microcytosis Macrocytosis Spherocytes Pappenheimer Bodies Sickle Cells Target Cells Tear Drop Cells Ovalocytes Stomatocytes Helmet Cells [place] Bodies [place] Rings Ballantine Cells Bite Cells Crenated Cell Elliptocytes Acanthocytes (Spur) Rouleaux Hemoglobin C Crystals Schistocytes Malaria parasites Mk Bodies Hem Pathologist Commnt Heparin Anti-Xa Level POC ABG pH POC ABG pCO2 POC ABG pO2 POC ABG HCO3 POC ABG Total CO2 POC ABG O2 Sat POC ABG Base Excess FiO2 Sodium Potassium Chloride Carbon Dioxide Anion Gap BUN Creatinine Estimated GFR BUN/Creatinine Ratio Glucose POC Glucose 140 H Calcium Urine Color Yellow Urine Turbidity Cloudy Urine pH 5.0 Ur Specific [place] 1.014 Urine Protein 100 mg/dl Urine Glucose (UA) Neg Urine Ketones Neg Urine Blood Mod Urine Nitrite Neg Urine Bilirubin Neg Urine Urobilinogen < 2.0 Ur Leukocyte Esterase Tr Urine WBC (Auto) 8.0 H Urine RBC (Auto) 57.0 Urine Bacteria (Auto) 1+ Amorphous Crystals 2+ Urine Yeast (Budding) 3+ Urine Creatinine 99.7 H Urine Sodium Not Reportable Urine Potassium 32.11 Urine Chloride 10.0 L Urine Total Protein 272 H Urine Opiates Screen Presumptive negative Urine Methadone Screen Presumptive negative Ur Barbiturates Screen Presumptive negative Ur Phencyclidine Scrn Presumptive negative Ur Amphetamines Screen Presumptive negative U Benzodiazepines Scrn Presumptive negative Urine Cocaine Screen Presumptive negative U Marijuana (THC) Screen Presumptive negative Drugs of Abuse Note Disclamer 06/24/18 06/24/18 06/24/18 00:40 04:30 04:30 WBC 26.9 H RBC 2.79 L Hgb 8.1 L Hct 25.0 L MCV 90 MCH 29 MCHC 33 RDW 17.5 H Plt Count 487 H Add Manual Diff Complete Total Counted 100 Seg Neuts % (Manual) 63.0 Band Neutrophils % 19.0 Lymphocytes % (Manual) 6.0 L Reactive Lymphs % (Man) 0 Monocytes % (Manual) 8.0 H Eosinophils % (Manual) 0 Basophils % (Manual) 0 Metamyelocytes % 4.0 Myelocytes % 0 Promyelocytes % 0 Blast Cells % 0 Nucleated RBC % Not Reportable Seg Neutrophils # Man 16.9 H Band Neutrophils # 5.1 Lymphocytes # (Manual) 1.6 Abs React Lymphs (Man) 0.0 Monocytes # (Manual) 2.2 H Eosinophils # (Manual) 0.0 Basophils # (Manual) 0.0 Metamyelocytes # 1.1 Myelocytes # 0.0 Promyelocytes # 0.0 Blast Cells # 0.0 WBC Morphology Not Reportable Hypersegmented Neuts Not Reportable Hyposegmented Neuts Not Reportable Hypogranular Neuts Not Reportable Smudge Cells Not Reportable Toxic Granulation Not Reportable Toxic Vacuolation Not Reportable Dohle Bodies Not Reportable Pelger-Huet Anomaly Not Reportable Mahesh Rods Not Reportable Platelet Estimate Consistent w auto Clumped Platelets Not Reportable Plt Clumps, EDTA Not Reportable Large Platelets Not Reportable Giant Platelets Not Reportable Platelet Satelliting Not Reportable Plt Morphology Comment Not Reportable RBC Morphology Not Reportable Dimorphic RBCs Not Reportable Polychromasia Not Reportable Hypochromasia 1+ Poikilocytosis Not Reportable Anisocytosis 1+ Microcytosis Not Reportable Macrocytosis Not Reportable Spherocytes Not Reportable Pappenheimer Bodies Not Reportable Sickle Cells Not Reportable Target Cells Not Reportable Tear Drop Cells Not Reportable Ovalocytes Not Reportable Stomatocytes 1+ Helmet Cells Not Reportable [place] Bodies Not Reportable [place] Rings Not Reportable [place] Cells Not Reportable Bite Cells Not Reportable Crenated Cell Not Reportable Elliptocytes Few Acanthocytes (Spur) Not Reportable Rouleaux Not Reportable Hemoglobin C Crystals Not Reportable Schistocytes Not Reportable Malaria parasites Not Reportable Mk Bodies Not Reportable Hem Pathologist Commnt No Heparin Anti-Xa Level 0.13 L POC ABG pH POC ABG pCO2 POC ABG pO2 POC ABG HCO3 POC ABG Total CO2 POC ABG O2 Sat POC ABG Base Excess FiO2 Sodium 151 H Potassium 3.8 Chloride 103.1 Carbon Dioxide 36 H D Anion Gap 16 BUN 74 H Creatinine 2.9 H Estimated GFR 28 BUN/Creatinine Ratio 26 Glucose 126 H POC Glucose Calcium 8.2 L Urine Color Urine Turbidity Urine pH Ur Specific [place] Urine Protein Urine Glucose (UA) Urine Ketones Urine Blood Urine Nitrite Urine Bilirubin Urine Urobilinogen Ur Leukocyte Esterase Urine WBC (Auto) Urine RBC (Auto) Urine Bacteria (Auto) Amorphous Crystals Urine Yeast (Budding) Urine Creatinine Urine Sodium Urine Potassium Urine Chloride Urine Total Protein Urine Opiates Screen Urine Methadone Screen Ur Barbiturates Screen Ur Phencyclidine Scrn Ur Amphetamines Screen U Benzodiazepines Scrn Urine Cocaine Screen U Marijuana (THC) Screen Drugs of Abuse Note 06/24/18 06/24/18 06/24/18 04:33 06:41 08:00 WBC RBC Hgb Hct MCV MCH MCHC RDW Plt Count Add Manual Diff Total Counted Seg Neuts % (Manual) Band Neutrophils % Lymphocytes % (Manual) Reactive Lymphs % (Man) Monocytes % (Manual) Eosinophils % (Manual) Basophils % (Manual) Metamyelocytes % Myelocytes % Promyelocytes % Blast Cells % Nucleated RBC % Seg Neutrophils # Man Band Neutrophils # Lymphocytes # (Manual) Abs React Lymphs (Man) Monocytes # (Manual) Eosinophils # (Manual) Basophils # (Manual) Metamyelocytes # Myelocytes # Promyelocytes # Blast Cells # WBC Morphology Hypersegmented Neuts Hyposegmented Neuts Hypogranular Neuts Smudge Cells Toxic Granulation Toxic Vacuolation Dohle Bodies Pelger-Huet Anomaly Mahesh Rods Platelet Estimate Clumped Platelets Plt Clumps, EDTA Large Platelets Giant Platelets Platelet Satelliting Plt Morphology Comment RBC Morphology Dimorphic RBCs Polychromasia Hypochromasia Poikilocytosis Anisocytosis Microcytosis Macrocytosis Spherocytes Pappenheimer Bodies Sickle Cells Target Cells Tear Drop Cells Ovalocytes Stomatocytes Helmet Cells [place] Bodies [place] Rings Ballantine Cells Bite Cells Crenated Cell Elliptocytes Acanthocytes (Spur) Rouleaux Hemoglobin C Crystals Schistocytes Malaria parasites Mk Bodies Hem Pathologist Commnt Heparin Anti-Xa Level 0.21 L POC ABG pH 7.517 H POC ABG pCO2 50.9 H POC ABG pO2 170 H POC ABG HCO3 41.2 POC ABG Total CO2 43 POC ABG O2 Sat 100 POC ABG Base Excess 18 FiO2 75 Sodium Potassium Chloride Carbon Dioxide Anion Gap BUN Creatinine Estimated GFR BUN/Creatinine Ratio Glucose POC Glucose 140 H Calcium Urine Color Urine Turbidity Urine pH Ur Specific [place] Urine Protein Urine Glucose (UA) Urine Ketones Urine Blood Urine Nitrite Urine Bilirubin Urine Urobilinogen Ur Leukocyte Esterase Urine WBC (Auto) Urine RBC (Auto) Urine Bacteria (Auto) Amorphous Crystals Urine Yeast (Budding) Urine Creatinine Urine Sodium Urine Potassium Urine Chloride Urine Total Protein Urine Opiates Screen Urine Methadone Screen Ur Barbiturates Screen Ur Phencyclidine Scrn Ur Amphetamines Screen U Benzodiazepines Scrn Urine Cocaine Screen U Marijuana (THC) Screen Drugs of Abuse Note 06/24/18 06/24/18 12:27 14:20 WBC RBC Hgb Hct MCV MCH MCHC RDW Plt Count Add Manual Diff Total Counted Seg Neuts % (Manual) Band Neutrophils % Lymphocytes % (Manual) Reactive Lymphs % (Man) Monocytes % (Manual) Eosinophils % (Manual) Basophils % (Manual) Metamyelocytes % Myelocytes % Promyelocytes % Blast Cells % Nucleated RBC % Seg Neutrophils # Man Band Neutrophils # Lymphocytes # (Manual) Abs React Lymphs (Man) Monocytes # (Manual) Eosinophils # (Manual) Basophils # (Manual) Metamyelocytes # Myelocytes # Promyelocytes # Blast Cells # WBC Morphology Hypersegmented Neuts Hyposegmented Neuts Hypogranular Neuts Smudge Cells Toxic Granulation Toxic Vacuolation Dohle Bodies Pelger-Huet Anomaly Mahesh Rods Platelet Estimate Clumped Platelets Plt Clumps, EDTA Large Platelets Giant Platelets Platelet Satelliting Plt Morphology Comment RBC Morphology Dimorphic RBCs Polychromasia Hypochromasia Poikilocytosis Anisocytosis Microcytosis Macrocytosis Spherocytes Pappenheimer Bodies Sickle Cells Target Cells Tear Drop Cells Ovalocytes Stomatocytes Helmet Cells [place] Bodies [place] Rings Ballantine Cells Bite Cells Crenated Cell Elliptocytes Acanthocytes (Spur) Rouleaux Hemoglobin C Crystals Schistocytes Malaria parasites Mk Bodies Hem Pathologist Commnt Heparin Anti-Xa Level 0.28 L POC ABG pH POC ABG pCO2 POC ABG pO2 POC ABG HCO3 POC ABG Total CO2 POC ABG O2 Sat POC ABG Base Excess FiO2 Sodium Potassium Chloride Carbon Dioxide Anion Gap BUN Creatinine Estimated GFR BUN/Creatinine Ratio Glucose POC Glucose 216 H Calcium Urine Color Urine Turbidity Urine pH Ur Specific [place] Urine Protein Urine Glucose (UA) Urine Ketones Urine Blood Urine Nitrite Urine Bilirubin Urine Urobilinogen Ur Leukocyte Esterase Urine WBC (Auto) Urine RBC (Auto) Urine Bacteria (Auto) Amorphous Crystals Urine Yeast (Budding) Urine Creatinine Urine Sodium Urine Potassium Urine Chloride Urine Total Protein Urine Opiates Screen Urine Methadone Screen Ur Barbiturates Screen Ur Phencyclidine Scrn Ur Amphetamines Screen U Benzodiazepines Scrn Urine Cocaine Screen U Marijuana (THC) Screen Drugs of Abuse Note
[2018-06-25] MEDS: HumuLIN R SUB-Q SCH ×5 (00:21→18:18)
[2018-06-25] MEDS: LOPRESSOR IV SCH ×4 (00:21→18:19)
--- NOTE | 2018-06-25 00:43 | XRay Report ---
FINAL REPORT PROCEDURE: XR CHEST 1V AP TECHNIQUE: Chest radiograph anteroposterior view. CPT 67238 HISTORY: follow up respiratory failure COMPARISON: No prior studies are available for comparison. FINDINGS: Heart is borderline enlarged. There are bilateral lower lobe infiltrates and pleural effusions. There are no pneumothoraces. NG tube is in the stomach. ET tube is in the mid trachea. There is right-sided PICC line. The tip is in the superior vena cava. The bony and soft tissue structures are normal. IMPRESSION: Heart is borderline enlarged. There are bilateral lower lobe infiltrates and pleural effusions. There are no pneumothoraces. .
[2018-06-25] MEDS: HEPARIN/ 0.45% NACL-25,000 UNIT/500 ML 25,000 UNIT/500 ML BAG IV SCH (04:10)
[2018-06-25 05:07] LABS: Hematocrit 25.6 % (35.5-45.6); Hemoglobin 8.1 gm/dl (11.8-15.2)
[2018-06-25] MEDS: APRESOLINE FEEDTUBE SCH ×3 (05:42→20:59)
[2018-06-25 05:51] LABS: Calcium 8.6 mg/dL (8.4-10.2)
--- NOTE | 2018-06-25 08:45 | Progress Note ---
Assessment and Plan Assessment and plan: Assessment and plan: s/p cardiorespiratory arrest. Patient developed shortness of breath overnight of 06/22/18. ABG was done showing pH 7.195. He was put on BIPAP, repeat ABG was slightly improved pH7.32. However patient became worse developed bradycardia with PEA arrest, cardiorespiratory arrest. Ally brower called at 7:17 am on 06/23/18. Code run as per protocol. He had CPR, multiple rounds of epinephrine, bicarb, and was intubated during code. It was a prolonged resuscitation effort and eventually regained pulse and code terminated 07:45 am. Patient was then transferred to ICU. After several minutes he had another cardiorespiratory arrest and ally brower called again at 08:09 am. CPR was done, multiple doses of Epinephrine and bicarb given and he regained pulse and code terminated at 08:19. He is unresponsive. Intubated on ventilator. I discussed case with Legal Coordinator, Dr. Lopez and it was decided to initiate heparin drip. Patient had DVT right lower ext but was not on anticoagulation because of nephrostomy tubes, major abdominal surgery. Vasc surgery stated ok to start anticoagulation. 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 Differentiated carcinoma with squamous differentiation on pathology but unsure of exact primary Continue pain control PRN Bilateral pneumonia (possibly aspiration) Monitor respiratory status Continue Nebs PRN Bilateral moderate pleural effusion Cardiogenic shock Patient was hypotensive post cardio-respiratory arrest. He was started on Levophed. Bp improved few hours later and Levophed discontinued, but now resumed since BP low again Sepsis was on Antibiotics. Acute kidney injury (obstructive uropathy vs contrast nephropathy) was on hemodialysis temporarily. Stable renal function. Dialysis catheter removed as per nephrology Continue to monitor BMP and kidney fuction Had bilateral nephrostomy tubes placed 05/14/[address] Freeman. Acute deep venous thrombosis Started heparin drip Bowel obstruction s/p surgery Etiology secondary to extrinsic compression from mass. Continue TPN Moderate to severe protein calorie malnutrition Anemia due to Chronic illness s/p PRBC transfusion. Plan was for him to go to LTAC prior to cardioresp arrest. Poor prognosis with prolonged cardiorespiratory arrest. Anoxic encephalopathy. Patient evaluated by Neuologist, Dr. Ye and she discussed with patient's sister on 06/24/18 patient unresponsive, post prolonged cardiorespiratory arrest Consult Dr. Melendrez, Neurology to see today Discussed with sister, Vibha Dinh in detail. History Interval history: Patient had cardiorespiratory arrest x2, resuscitated both times, now intubated , still unresponsive Hospitalist Physical - Physical exam Narrative exam: GEN:Now Intubated, on mechanical ventilator, HEENT: Normocephalic, atraumatic, Neck: supple, No JVD Lungs: Decreased breath sounds both bases, no crackles Heart:S1 and S2 regular ,no murmurs, rubs or gallop Abd:soft, ostomy, bilat nephrostomy tubes, bowel sounds present Ext: No edema, clubbing or cyanosis Neuro: Intubated, Unresponsive, on ventilator,pupils dilated, fixed, no corneal reflex - Constitutional Vitals: Temp Pulse Resp BP Pulse Ox 97.2 F L 59 L 24 118/88 100 06/25/18 03:17 06/25/18 06:30 06/25/18 06:30 06/25/18 06:30 06/25/18 06:30 Results - Labs CBC & Chem 7: 06/26/18 04:00 06/26/18 04:00 Labs: Laboratory Last Values WBC 26.9 K/mm3 (4.5-11.0) H 06/24/18 04:30 RBC 2.79 M/mm3 (3.65-5.03) L 06/24/18 04:30 Hgb 8.1 gm/dl (11.8-15.2) L 06/25/18 04:37 Hct 25.6 % (35.5-45.6) L 06/25/18 04:37 MCV 90 fl (84-94) 06/24/18 04:30 MCH 29 pg (28-32) 06/24/18 04:30 MCHC 33 % (32-34) 06/24/18 04:30 RDW 17.5 % (13.2-15.2) H 06/24/18 04:30 Plt Count 420 K/mm3 (140-440) 06/25/18 04:37 Lymph % (Auto) 10.0 % (13.4-35.0) L 06/21/18 05:50 [place] % (Auto) 7.4 % (0.0-7.3) H 06/21/18 05:50 Eos % (Auto) 0.4 % (0.0-4.3) 06/21/18 05:50 Baso % (Auto) 0.9 % (0.0-1.8) 06/21/18 05:50 Lymph # 1.0 K/mm3 (1.2-5.4) L 06/21/18 05:50 [place] # 0.7 K/mm3 (0.0-0.8) 06/21/18 05:50 Eos # 0.0 K/mm3 (0.0-0.4) 06/21/18 05:50 Baso # 0.1 K/mm3 (0.0-0.1) 06/21/18 05:50 Add Manual Diff Complete 06/24/18 04:30 Total Counted 100 06/24/18 04:30 Seg Neutrophils % 81.3 % (40.0-70.0) H 06/21/18 05:50 Seg Neuts % (Manual) 63.0 % (40.0-70.0) 06/24/18 04:30 Band Neutrophils % 19.0 % 06/24/18 04:30 Lymphocytes % (Manual) 6.0 % (13.4-35.0) L 06/24/18 04:30 Reactive Lymphs % (Man) 0 % 06/24/18 04:30 Monocytes % (Manual) 8.0 % (0.0-7.3) H 06/24/18 04:30 Eosinophils % (Manual) 0 % (0.0-4.3) 06/24/18 04:30 Basophils % (Manual) 0 % (0.0-1.8) 06/24/18 04:30 Metamyelocytes % 4.0 % 06/24/18 04:30 Myelocytes % 0 % 06/24/18 04:30 Promyelocytes % 0 % 06/24/18 04:30 Blast Cells % 0 % 06/24/18 04:30 Nucleated RBC % Not Reportable 06/24/18 04:30 Seg Neutrophils # 7.9 K/mm3 (1.8-7.7) H 06/21/18 05:50 Seg Neutrophils # Man 16.9 K/mm3 (1.8-7.7) H 06/24/18 04:30 Band Neutrophils # 5.1 K/mm3 06/24/18 04:30 Lymphocytes # (Manual) 1.6 K/mm3 (1.2-5.4) 06/24/18 04:30 Abs React Lymphs (Man) 0.0 K/mm3 06/24/18 04:30 Monocytes # (Manual) 2.2 K/mm3 (0.0-0.8) H 06/24/18 04:30 Eosinophils # (Manual) 0.0 K/mm3 (0.0-0.4) 06/24/18 04:30 Basophils # (Manual) 0.0 K/mm3 (0.0-0.1) 06/24/18 04:30 Metamyelocytes # 1.1 K/mm3 06/24/18 04:30 Myelocytes # 0.0 K/mm3 06/24/18 04:30 Promyelocytes # 0.0 K/mm3 06/24/18 04:30 Blast Cells # 0.0 K/mm3 06/24/18 04:30 WBC Morphology Not Reportable 06/24/18 04:30 Hypersegmented Neuts Not Reportable 06/24/18 04:30 Hyposegmented Neuts Not Reportable 06/24/18 04:30 Hypogranular Neuts Not Reportable 06/24/18 04:30 Smudge Cells Not Reportable 06/24/18 04:30 Toxic Granulation Not Reportable 06/24/18 04:30 Toxic Vacuolation Not Reportable 06/24/18 04:30 Dohle Bodies Not Reportable 06/24/18 04:30 Pelger-Huet Anomaly Not Reportable 06/24/18 04:30 Mahesh Rods Not Reportable 06/24/18 04:30 Platelet Estimate Consistent w auto 06/24/18 04:30 Clumped Platelets Not Reportable 06/24/18 04:30 Plt Clumps, EDTA Not Reportable 06/24/18 04:30 Large Platelets Not Reportable 06/24/18 04:30 Giant Platelets Not Reportable 06/24/18 04:30 Platelet Satelliting Not Reportable 06/24/18 04:30 Plt Morphology Comment Not Reportable 06/24/18 04:30 RBC Morphology Not Reportable 06/24/18 04:30 Dimorphic RBCs Not Reportable 06/24/18 04:30 Polychromasia Not Reportable 06/24/18 04:30 Hypochromasia 1+ 06/24/18 04:30 Poikilocytosis Not Reportable 06/24/18 04:30 Anisocytosis 1+ 06/24/18 04:30 Microcytosis Not Reportable 06/24/18 04:30 Macrocytosis Not Reportable 06/24/18 04:30 Spherocytes Not Reportable 06/24/18 04:30 Pappenheimer Bodies Not Reportable 06/24/18 04:30 Sickle Cells Not Reportable 06/24/18 04:30 Target Cells Not Reportable 06/24/18 04:30 Tear Drop Cells Not Reportable 06/24/18 04:30 Ovalocytes Not Reportable 06/24/18 04:30 Stomatocytes 1+ 06/24/18 04:30 Helmet Cells Not Reportable 06/24/18 04:30 [place] Bodies Not Reportable 06/24/18 04:30 [place] Rings Not Reportable 06/24/18 04:30 Nory Cells Not Reportable 06/24/18 04:30 Bite Cells Not Reportable 06/24/18 04:30 Crenated Cell Not Reportable 06/24/18 04:30 Elliptocytes Few 06/24/18 04:30 Acanthocytes (Spur) Not Reportable 06/24/18 04:30 Rouleaux Not Reportable 06/24/18 04:30 Hemoglobin C Crystals Not Reportable 06/24/18 04:30 Schistocytes Not Reportable 06/24/18 04:30 Malaria parasites Not Reportable 06/24/18 04:30 Mk Bodies Not Reportable 06/24/18 04:30 Hem Pathologist Commnt No 06/24/18 04:30 PT 15.2 Sec. (12.2-14.9) H 06/23/18 08:34 INR 1.15 (0.87-1.13) H 06/23/18 08:34 APTT 41.9 Sec. (24.2-36.6) H 06/23/18 08:34 Heparin Anti-Xa Level 0.49 U.I./ml (0.3-0.7) 06/24/18 22:20 POC ABG pH 7.534 (7.35-7.45) H 06/25/18 04:29 POC ABG pCO2 42.2 (35-45) 06/25/18 04:29 POC ABG pO2 161 (80-105) H 06/25/18 04:29 POC ABG HCO3 35.5 06/25/18 04:29 POC ABG Total CO2 37 06/25/18 04:29 POC ABG O2 Sat 100 06/25/18 04:29 POC ABG Base Excess 13 06/25/18 04:29 FiO2 45 % 06/25/18 04:29 Sodium 143 mmol/L (137-145) D 06/25/18 04:37 Potassium 2.6 mmol/L (3.6-5.0) L* D 06/25/18 04:37 Chloride 103.5 mmol/L (98-107) 06/25/18 04:37 Carbon Dioxide 32 mmol/L (22-30) H 06/25/18 04:37 Anion Gap 10 mmol/L 06/25/18 04:37 BUN 75 mg/dL (9-20) H 06/25/18 04:37 Creatinine 3.1 mg/dL (0.8-1.5) H 06/25/18 04:37 Estimated GFR 26 ml/min 06/25/18 04:37 BUN/Creatinine Ratio 24 % 06/25/18 04:37 Glucose 244 mg/dL (75-100) H 06/25/18 04:37 POC Glucose 225 (70-105) H 06/25/18 05:48 Hemoglobin A1c 5.7 % (4-6) 05/14/18 05:05 Lactic Acid 3.80 mmol/L (0.7-2.0) H* 05/26/18 11:00 Calcium 8.6 mg/dL (8.4-10.2) 06/25/18 04:37 Phosphorus 3.00 mg/dL (2.5-4.5) 06/25/18 04:37 Magnesium 1.90 mg/dL (1.7-2.3) 06/25/18 04:37 Iron 24 ug/dL (49-181) L 05/16/18 07:02 TIBC 160 mcg/dL (250-450) L 05/16/18 07:02 Ferritin 325.8 ng/mL (13.0-400.0) 05/16/18 07:02 Total Bilirubin 0.20 mg/dL (0.1-1.2) 06/23/18 08:31 AST 46 units/L (5-40) H 06/23/18 08:31 ALT 32 units/L (7-56) 06/23/18 08:31 Alkaline Phosphatase 188 units/L (35-129) H 06/23/18 08:31 Lactate Dehydrogenase 297 units/L (91-180) H 06/08/18 21:36 Total Creatine Kinase 34 units/L (55-170) L 06/12/18 04:12 CK-MB (CK-2) 2.3 ng/mL (0.0-4.0) 05/25/18 22:46 CK-MB (CK-2) Rel Index 1.4 (0-4) 05/25/18 22:46 C-Reactive Protein 3.60 mg/dL (0.00-1.30) H 06/10/18 17:15 Total Protein 7.0 g/dL (6.3-8.2) 06/23/18 08:31 Albumin 1.6 g/dL (3.9-5) L 06/23/18 08:31 Albumin/Globulin Ratio 0.3 % 06/23/18 08:31 Prealbumin 0.130 g/L (0.200-0.400) L 06/17/18 05:52 Triglycerides 56 mg/dL (2-149) 06/19/18 06:20 CA 19-9 Antigen 57 U/mL (<34) H 06/08/18 21:43 Prostate Specific Ag 0.96 ng/mL (0.00-4.00) 05/14/18 13:29 Free PSA See scanned result 06/08/18 21:44 % Free PSA Calc See scanned result 06/08/18 21:44 Total PSA See scanned result 06/08/18 21:44 Vitamin B12 359.2 pg/mL (211-911) 05/16/18 07:02 Folate 5.39 ng/mL (7.3-26.0) L 05/16/18 07:02 TSH 3.180 mlU/mL (0.270-4.200) 05/14/18 05:05 PTH Intact 65.37 pg/mL (15-65) H 05/14/18 05:05 Urine Color Yellow (Yellow) 06/24/18 00:30 Urine Turbidity Cloudy (Clear) 06/24/18 00:30 Urine pH 5.0 (5.0-7.0) 06/24/18 00:30 Ur Specific [place] 1.014 (1.003-1.030) 06/24/18 00:30 Urine Protein 100 mg/dl mg/dL (Negative) 06/24/18 00:30 Urine Glucose (UA) Neg mg/dL (Negative) 06/24/18 00:30 Urine Ketones Neg mg/dL (Negative) 06/24/18 00:30 Urine Blood Mod (Negative) 06/24/18 00:30 Urine Nitrite Neg (Negative) 06/24/18 00:30 Urine Bilirubin Neg (Negative) 06/24/18 00:30 Urine Urobilinogen < 2.0 mg/dL (<2.0) 06/24/18 00:30 Ur Leukocyte Esterase Tr (Negative) 06/24/18 00:30 Urine WBC (Auto) 8.0 /HPF (0.0-6.0) H 06/24/18 00:30 Urine RBC (Auto) 57.0 /HPF (0.0-6.0) 06/24/18 00:30 U Epithel Cells (Auto) 1.0 /HPF (0-13.0) 06/11/18 07:41 Urine Bacteria (Auto) 1+ /HPF (Negative) 06/24/18 00:30 Urine WBC Clumps Few /HPF 05/13/18 19:39 Amorphous Crystals 2+ 06/24/18 00:30 Urine Mucus Few /HPF 06/11/18 07:41 Ur Yeast w [place]pha[place] Few /HPF 06/11/18 07:41 Urine Yeast (Budding) 3+ /HPF 06/24/18 00:30 Urine Creatinine 99.7 mg/dL (0.1-20.0) H 06/23/18 00:30 Urine Sodium Not Reportable 06/23/18 00:30 Urine Potassium 32.11 mmol/L 06/23/18 00:30 Urine Chloride 10.0 mmolL (110-250) L 06/23/18 00:30 Urine Total Protein 272 mg/dL (5-11.8) H 06/23/18 00:30 Fluid Type Ascitic 06/03/18 Unknown Fluid Color Yellow 06/03/18 Unknown Fluid Appearance Cloudy 06/03/18 Unknown Fluid WBC 82020 /mm3 06/03/18 Unknown Fluid RBC 9 /mm3 06/03/18 Unknown Fluid Seg Neutrophils 98.0 % 06/03/18 Unknown Fluid Lymphocytes 2.0 % 06/03/18 Unknown Fluid Reactive Lymphs 0 % 06/03/18 Unknown Fluid Monocytes 0 % 06/03/18 Unknown Fluid Eosinophils 0 % 06/03/18 Unknown Fluid Basophils 0 % 06/03/18 Unknown Fluid Glucose 10 mg/dL (40-70) L 06/03/18 Unknown Fluid Total Protein 3.7 (15.0-45.0) L 06/03/18 Unknown Fluid Albumin 0.8 g/dL 06/03/18 Unknown Fluid LDH > 33998 06/03/18 Unknown Fluid Amylase 126 06/03/18 Unknown Vancomycin Trough 25.1 ug/mL (5.0-20.0) H 05/25/18 22:46 Random Vancomycin 34.3 ug/mL (0-40.0) 05/26/18 11:01 Urine Opiates Screen Presumptive negative 06/23/18 00:30 Urine Methadone Screen Presumptive negative 06/23/18 00:30 Ur Barbiturates Screen Presumptive negative 06/23/18 00:30 Ur Phencyclidine Scrn Presumptive negative 06/23/18 00:30 Ur Amphetamines Screen Presumptive negative 06/23/18 00:30 U Benzodiazepines Scrn Presumptive negative 06/23/18 00:30 Urine Cocaine Screen Presumptive negative 06/23/18 00:30 U Marijuana (THC) Screen Presumptive negative 06/23/18 00:30 Drugs of Abuse Note Disclamer 06/23/18 00:30 ZEUS Screen Negative (Negative) 05/14/18 05:05 Proteinase 3 (PR3) Ab <1.0 AI (<1.0) 05/14/18 05:05 Myeloperoxidase Ab <1.0 AI (<1.0) 05/14/18 05:05 Complement C3 147 mg/dL (82-185) 05/14/18 05:05 Complement C4 45 mg/dL (15-53) 05/14/18 05:05 Hepatitis A IgM Ab Nonreactive (NonReactive) 05/27/18 13:41 Hep Bs Antigen Non-reactive (Negative) 05/27/18 13:41 Hep B Core IgM Ab Non-reactive (NonReactive) 05/27/18 13:41 Hepatitis C Antibody Non-reactive (NonReactive) 05/27/18 13:41 Miscellaneous Test Flexitest 1 H 06/09/18 07:37 Blood Type O POSITIVE 06/23/18 09:40 Antibody Screen Negative 06/23/18 09:40 Crossmatch See Detail 06/23/18 09:40
--- NOTE | 2018-06-25 09:19 | Progress Note ---
Assessment and Plan 1. Acute kidney injury: Initial MARYLOU in the setting of bilateral hydronephrosis secondary to pelvic mass , now s/p bilateral nephrostomy. Recurrent Acute kidney injury likely ATN. Patient was on hemodialysis until 06/02/18. Renal function continue to decline. BP remains low. Clonidine patch was removed. Not on pressors. No acute indication for dialysis. 2. Electrolytes: Monitor. 3. Bowel obstruction: S/p colostomy. 4. Bilateral hydronephrosis: Secondary to pelvic mass. S/p bilateral nephrostomy. S/p Cysto and drainage of abscess. 5. Respiratory failure: On vent. 6. S/p PEA. 7. Sepsis: Complicated UTI and pneumonia. On Zosyn. 8. Anemia. 9. 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 D/w his brother. Subjective Date of service: 06/25/18 Principal diagnosis: sq cell ca Interval history: Patient was seen and examined at the bedside. Objective - Vital Signs Vital signs: Vital Signs - 12hr 06/24/18 06/24/18 06/24/18 21:30 21:45 22:00 Temperature Pulse Rate 79 78 77 Pulse Rate [ From Monitor] Respiratory 24 24 24 Rate Blood Pressure 132/99 126/95 130/96 O2 Sat by Pulse 100 100 100 Oximetry 06/24/18 06/24/18 06/24/18 22:15 22:27 22:30 Temperature Pulse Rate 76 76 76 Pulse Rate [ From Monitor] Respiratory 24 24 24 Rate Blood Pressure 136/97 136/97 137/98 O2 Sat by Pulse 100 100 100 Oximetry 06/24/18 06/24/18 06/24/18 22:32 22:45 23:00 Temperature Pulse Rate 76 75 74 Pulse Rate [ From Monitor] Respiratory 24 24 24 Rate Blood Pressure 137/98 135/99 132/96 O2 Sat by Pulse 100 100 100 Oximetry 06/24/18 06/24/18 06/24/18 23:05 23:15 23:30 Temperature 97.8 F Pulse Rate 74 74 Pulse Rate [ From Monitor] Respiratory 24 24 Rate Blood Pressure 127/96 135/99 O2 Sat by Pulse 100 100 Oximetry 06/24/18 06/25/18 06/25/18 23:45 00:00 00:15 Temperature Pulse Rate 74 72 72 Pulse Rate [ 69 From Monitor] Respiratory 24 24 24 Rate Blood Pressure 133/97 129/96 137/100 O2 Sat by Pulse 100 100 100 Oximetry 06/25/18 06/25/18 06/25/18 00:21 00:30 00:46 Temperature Pulse Rate 74 70 70 Pulse Rate [ From Monitor] Respiratory 24 24 Rate Blood Pressure 137/100 143/101 117/86 O2 Sat by Pulse 100 100 Oximetry 06/25/18 06/25/18 06/25/18 01:00 01:15 01:30 Temperature Pulse Rate 69 69 68 Pulse Rate [ From Monitor] Respiratory 24 24 Rate Blood Pressure 117/86 128/94 127/93 O2 Sat by Pulse 100 100 100 Oximetry 06/25/18 06/25/18 06/25/18 01:45 02:00 02:15 Temperature Pulse Rate 67 67 67 Pulse Rate [ From Monitor] Respiratory 24 Rate Blood Pressure 131/97 126/94 131/96 O2 Sat by Pulse 100 100 100 Oximetry 06/25/18 06/25/18 06/25/18 02:30 02:45 03:00 Temperature Pulse Rate 66 66 66 Pulse Rate [ From Monitor] Respiratory 24 24 Rate Blood Pressure 124/94 127/94 129/95 O2 Sat by Pulse 100 100 100 Oximetry 06/25/18 06/25/18 06/25/18 03:15 03:17 03:30 Temperature 97.2 F L Pulse Rate 65 65 Pulse Rate [ From Monitor] Respiratory 24 24 Rate Blood Pressure 121/92 125/92 O2 Sat by Pulse 100 100 Oximetry 06/25/18 06/25/18 06/25/18 03:45 04:00 04:15 Temperature Pulse Rate 64 64 64 Pulse Rate [ 58 L From Monitor] Respiratory 24 24 Rate Blood Pressure 115/86 127/94 119/90 O2 Sat by Pulse 100 100 100 Oximetry 06/25/18 06/25/18 06/25/18 04:30 04:46 05:00 Temperature Pulse Rate 63 66 62 Pulse Rate [ From Monitor] Respiratory 24 24 24 Rate Blood Pressure 111/83 168/109 120/89 O2 Sat by Pulse 100 Oximetry 06/25/18 06/25/18 06/25/18 05:15 05:30 05:42 Temperature Pulse Rate 62 67 62 Pulse Rate [ From Monitor] Respiratory 13 Rate Blood Pressure 141/98 157/105 157/105 O2 Sat by Pulse Oximetry 06/25/18 06/25/18 06/25/18 05:46 06:00 06:15 Temperature Pulse Rate 62 61 60 Pulse Rate [ From Monitor] Respiratory 24 24 24 Rate Blood Pressure 115/86 108/83 103/79 O2 Sat by Pulse 100 100 100 Oximetry 06/25/18 06/25/18 06:30 08:28 Temperature Pulse Rate 59 L 55 L Pulse Rate [ From Monitor] Respiratory 24 Rate Blood Pressure 118/88 115/88 O2 Sat by Pulse 100 100 Oximetry - General Appearance General appearance: well-developed, appears stated age, intubated, other (on vent, FiO2 45%) EENT: ATNC Neck: supple Respiratory: Present: Clear to Ascultation Cardiology: regular, S1S2, no murmurs Gastrointestinal: other (ostomy, drain and bilateral nephrostomy noted) Neurologic: obtunded, other (pupils are not reacting to light) Musculoskeletal: other (left groin temp dialysis catheter) - Lab 06/25/18 04:37 06/25/18 04:37 Most recent lab results Calcium 8.6 mg/dL (8.4-10.2) 06/25/18 04:37 Phosphorus 3.00 mg/dL (2.5-4.5) 06/25/18 04:37 Magnesium 1.90 mg/dL (1.7-2.3) 06/25/18 04:37 Urine Creatinine 99.7 mg/dL (0.1-20.0) H 06/23/18 00:30 Urine Sodium Not Reportable 06/23/18 00:30 Urine Total Protein 272 mg/dL (5-11.8) H 06/23/18 00:30
[2018-06-25] MEDS: KCL 10MEQ/100ML 10 MEQ/100 ML BAG IV SCH ×5 (09:51→23:56)
[2018-06-25] MEDS: PEPCID IV SCH (10:10)
[2018-06-25] MEDS: FOLVITE PO SCH (10:10)
[2018-06-25] MEDS: FERROUS SULFATE PO SCH ×2 (10:10→21:00)
--- NOTE | 2018-06-25 11:14 | Progress Note ---
Subjective Date of service: 06/25/18 Principal diagnosis: sq cell ca Interval history: spoke with the sister and went over clinical details with her explained dx and EEG did not show brain activity- exam c/w lack of brain activity Objective - Vital Sign Vital Signs - 12hr 06/24/18 06/24/18 06/24/18 23:15 23:30 23:45 Temperature Pulse Rate 74 74 74 Pulse Rate [ From Monitor] Respiratory 24 24 24 Rate Blood Pressure 127/96 135/99 133/97 O2 Sat by Pulse 100 100 100 Oximetry 06/25/18 06/25/18 06/25/18 00:00 00:15 00:21 Temperature Pulse Rate 72 72 74 Pulse Rate [ 69 From Monitor] Respiratory 24 24 Rate Blood Pressure 129/96 137/100 137/100 O2 Sat by Pulse 100 100 Oximetry 06/25/18 06/25/18 06/25/18 00:30 00:46 01:00 Temperature Pulse Rate 70 70 69 Pulse Rate [ From Monitor] Respiratory 24 24 24 Rate Blood Pressure 143/101 117/86 117/86 O2 Sat by Pulse 100 100 100 Oximetry 06/25/18 06/25/18 06/25/18 01:15 01:30 01:45 Temperature Pulse Rate 69 68 67 Pulse Rate [ From Monitor] Respiratory 24 24 24 Rate Blood Pressure 128/94 127/93 131/97 O2 Sat by Pulse 100 100 100 Oximetry 06/25/18 06/25/18 06/25/18 02:00 02:15 02:30 Temperature Pulse Rate 67 67 66 Pulse Rate [ From Monitor] Respiratory 24 24 24 Rate Blood Pressure 126/94 131/96 124/94 O2 Sat by Pulse 100 100 100 Oximetry 06/25/18 06/25/18 06/25/18 02:45 03:00 03:15 Temperature Pulse Rate 66 66 65 Pulse Rate [ From Monitor] Respiratory 24 24 24 Rate Blood Pressure 127/94 129/95 121/92 O2 Sat by Pulse 100 100 100 Oximetry 06/25/18 06/25/18 06/25/18 03:17 03:30 03:45 Temperature 97.2 F L Pulse Rate 65 64 Pulse Rate [ From Monitor] Respiratory 24 24 Rate Blood Pressure 125/92 115/86 O2 Sat by Pulse 100 100 Oximetry 06/25/18 06/25/18 06/25/18 04:00 04:15 04:30 Temperature Pulse Rate 64 64 63 Pulse Rate [ 58 L From Monitor] Respiratory 24 24 24 Rate Blood Pressure 127/94 119/90 111/83 O2 Sat by Pulse 100 100 100 Oximetry 06/25/18 06/25/18 06/25/18 04:46 05:00 05:15 Temperature Pulse Rate 66 62 62 Pulse Rate [ From Monitor] Respiratory 24 24 24 Rate Blood Pressure 168/109 120/89 141/98 O2 Sat by Pulse Oximetry 06/25/18 06/25/18 06/25/18 05:30 05:42 05:46 Temperature Pulse Rate 67 62 62 Pulse Rate [ From Monitor] Respiratory 13 24 Rate Blood Pressure 157/105 157/105 115/86 O2 Sat by Pulse 100 Oximetry 06/25/18 06/25/18 06/25/18 06:00 06:15 06:30 Temperature Pulse Rate 61 60 59 L Pulse Rate [ From Monitor] Respiratory 24 24 24 Rate Blood Pressure 108/83 103/79 118/88 O2 Sat by Pulse 100 100 100 Oximetry 06/25/18 08:28 Temperature Pulse Rate 55 L Pulse Rate [ From Monitor] Respiratory Rate Blood Pressure 115/88 O2 Sat by Pulse 100 Oximetry - Laboratory Findings CBC and BMP: 06/25/18 04:37 06/25/18 04:37 Abnormal Lab Findings: Abnormal Labs 05/13/18 05/13/18 05/13/18 04:27 04:27 19:39 WBC RBC 3.13 L Hgb 9.4 L Hct 26.8 L MCV MCHC 35 H RDW Plt Count Lymph % (Auto) [place] % (Auto) 9.6 H Lymph # [place] # Seg Neutrophils % Seg Neuts % (Manual) Lymphocytes % (Manual) Monocytes % (Manual) Seg Neutrophils # Seg Neutrophils # Man Lymphocytes # (Manual) Monocytes # (Manual) PT INR APTT Heparin Anti-Xa Level POC ABG pH POC ABG pCO2 POC ABG pO2 Sodium 132 L Potassium 5.5 H Chloride 94.1 L Carbon Dioxide 19 L BUN 72 H Creatinine 14.4 H Glucose POC Glucose Lactic Acid Calcium Phosphorus Magnesium Iron TIBC AST ALT Alkaline Phosphatase Lactate Dehydrogenase Total Creatine Kinase C-Reactive Protein Total Protein Albumin 2.8 L Prealbumin CA 19-9 Antigen Folate PTH Intact Urine WBC (Auto) Urine Creatinine 66.0 H Urine Chloride 27.8 L Urine Total Protein 24 H Fluid Glucose Fluid Total Protein Vancomycin Trough Miscellaneous Test Crossmatch 05/13/18 05/14/18 05/14/18 20:00 05:05 05:05 WBC RBC Hgb Hct MCV MCHC RDW Plt Count Lymph % (Auto) [place] % (Auto) Lymph # [place] # Seg Neutrophils % Seg Neuts % (Manual) Lymphocytes % (Manual) Monocytes % (Manual) Seg Neutrophils # Seg Neutrophils # Man Lymphocytes # (Manual) Monocytes # (Manual) PT INR APTT Heparin Anti-Xa Level POC ABG pH POC ABG pCO2 POC ABG pO2 Sodium 132 L 131 L Potassium 5.2 H 5.8 H Chloride 93.0 L 95.6 L Carbon Dioxide 19 L 20 L BUN 74 H 81 H Creatinine 15.0 H 16.6 H Glucose 134 H 127 H POC Glucose Lactic Acid Calcium 8.2 L 7.9 L Phosphorus 6.30 H Magnesium Iron TIBC AST ALT Alkaline Phosphatase Lactate Dehydrogenase Total Creatine Kinase 236 H C-Reactive Protein Total Protein Albumin Prealbumin CA 19-9 Antigen Folate PTH Intact 65.37 H Urine WBC (Auto) Urine Creatinine Urine Chloride Urine Total Protein Fluid Glucose Fluid Total Protein Vancomycin Trough Miscellaneous Test Crossmatch 05/14/18 05/14/18 05/14/18 09:28 10:56 13:29 WBC RBC Hgb Hct MCV MCHC RDW Plt Count Lymph % (Auto) [place] % (Auto) Lymph # [place] # Seg Neutrophils % Seg Neuts % (Manual) Lymphocytes % (Manual) Monocytes % (Manual) Seg Neutrophils # Seg Neutrophils # Man Lymphocytes # (Manual) Monocytes # (Manual) PT INR APTT 38.2 H Heparin Anti-Xa Level POC ABG pH POC ABG pCO2 POC ABG pO2 Sodium Potassium Chloride Carbon Dioxide BUN Creatinine Glucose POC Glucose 127 H 126 H Lactic Acid Calcium Phosphorus Magnesium Iron TIBC AST ALT Alkaline Phosphatase Lactate Dehydrogenase Total Creatine Kinase C-Reactive Protein Total Protein Albumin Prealbumin CA 19-9 Antigen Folate PTH Intact Urine WBC (Auto) Urine Creatinine Urine Chloride Urine Total Protein Fluid Glucose Fluid Total Protein Vancomycin Trough Miscellaneous Test Crossmatch 05/15/18 05/15/18 05/16/18 08:06 08:06 07:02 WBC RBC 2.84 L 2.74 L Hgb 8.5 L 8.5 L Hct 24.2 L 23.5 L MCV MCHC 35 H 36 H RDW Plt Count Lymph % (Auto) [place] % (Auto) 10.4 H 11.0 H Lymph # 1.1 L [place] # 0.9 H Seg Neutrophils % 72.6 H Seg Neuts % (Manual) Lymphocytes % (Manual) Monocytes % (Manual) Seg Neutrophils # Seg Neutrophils # Man Lymphocytes # (Manual) Monocytes # (Manual) PT INR APTT Heparin Anti-Xa Level POC ABG pH POC ABG pCO2 POC ABG pO2 Sodium Potassium Chloride Carbon Dioxide 19 L BUN 66 H Creatinine 12.0 H Glucose 115 H POC Glucose Lactic Acid Calcium 8.1 L Phosphorus Magnesium Iron TIBC AST ALT Alkaline Phosphatase Lactate Dehydrogenase Total Creatine Kinase C-Reactive Protein Total Protein Albumin Prealbumin CA 19-9 Antigen Folate PTH Intact Urine WBC (Auto) Urine Creatinine Urine Chloride Urine Total Protein Fluid Glucose Fluid Total Protein Vancomycin Trough Miscellaneous Test Crossmatch 05/16/18 05/16/18 05/17/18 07:02 07:02 05:08 WBC RBC 2.78 L Hgb 8.2 L Hct 23.9 L MCV MCHC RDW Plt Count Lymph % (Auto) [place] % (Auto) 13.9 H Lymph # [place] # 0.9 H Seg Neutrophils % Seg Neuts % (Manual) Lymphocytes % (Manual) Monocytes % (Manual) Seg Neutrophils # Seg Neutrophils # Man Lymphocytes # (Manual) Monocytes # (Manual) PT INR APTT Heparin Anti-Xa Level POC ABG pH POC ABG pCO2 POC ABG pO2 Sodium Potassium Chloride Carbon Dioxide BUN 28 H Creatinine 2.4 H D Glucose POC Glucose Lactic Acid Calcium 8.3 L Phosphorus Magnesium 1.50 L Iron 24 L TIBC 160 L AST ALT Alkaline Phosphatase Lactate Dehydrogenase Total Creatine Kinase C-Reactive Protein Total Protein Albumin Prealbumin CA 19-9 Antigen Folate 5.39 L PTH Intact Urine WBC (Auto) Urine Creatinine Urine Chloride Urine Total Protein Fluid Glucose Fluid Total Protein Vancomycin Trough Miscellaneous Test Crossmatch 05/17/18 05/18/18 05/18/18 05:08 05:57 05:57 WBC RBC 2.79 L Hgb 8.3 L Hct 24.0 L MCV MCHC 35 H RDW Plt Count Lymph % (Auto) [place] % (Auto) 11.8 H Lymph # [place] # 0.9 H Seg Neutrophils % Seg Neuts % (Manual) Lymphocytes % (Manual) Monocytes % (Manual) Seg Neutrophils # Seg Neutrophils # Man Lymphocytes # (Manual) Monocytes # (Manual) PT INR APTT Heparin Anti-Xa Level POC ABG pH POC ABG pCO2 POC ABG pO2 Sodium Potassium Chloride Carbon Dioxide BUN Creatinine Glucose POC Glucose Lactic Acid Calcium 7.7 L 8.0 L Phosphorus Magnesium 1.60 L Iron TIBC AST ALT Alkaline Phosphatase Lactate Dehydrogenase Total Creatine Kinase C-Reactive Protein Total Protein Albumin Prealbumin CA 19-9 Antigen Folate PTH Intact Urine WBC (Auto) Urine Creatinine Urine Chloride Urine Total Protein Fluid Glucose Fluid Total Protein Vancomycin Trough Miscellaneous Test Crossmatch 05/19/18 05/19/18 05/20/18 05:33 05:33 05:38 WBC RBC 2.95 L Hgb 8.8 L Hct 25.8 L MCV MCHC RDW Plt Count Lymph % (Auto) 10.1 L [place] % (Auto) Lymph # 1.1 L [place] # Seg Neutrophils % 85.2 H Seg Neuts % (Manual) Lymphocytes % (Manual) Monocytes % (Manual) Seg Neutrophils # 9.0 H Seg Neutrophils # Man Lymphocytes # (Manual) Monocytes # (Manual) PT INR APTT Heparin Anti-Xa Level POC ABG pH POC ABG pCO2 POC ABG pO2 Sodium 135 L Potassium Chloride Carbon Dioxide BUN Creatinine Glucose 132 H POC Glucose Lactic Acid Calcium 7.8 L 8.3 L Phosphorus Magnesium 1.40 L Iron TIBC AST ALT Alkaline Phosphatase Lactate Dehydrogenase Total Creatine Kinase C-Reactive Protein Total Protein Albumin Prealbumin CA 19-9 Antigen Folate PTH Intact Urine WBC (Auto) Urine Creatinine Urine Chloride Urine Total Protein Fluid Glucose Fluid Total Protein Vancomycin Trough Miscellaneous Test Crossmatch 05/21/18 05/21/18 05/22/18 04:46 15:30 06:49 WBC 20.0 H RBC 2.70 L Hgb 7.8 L Hct 23.3 L MCV MCHC RDW Plt Count Lymph % (Auto) [place] % (Auto) Lymph # [place] # Seg Neutrophils % Seg Neuts % (Manual) 85.0 H Lymphocytes % (Manual) 4.0 L Monocytes % (Manual) Seg Neutrophils # Seg Neutrophils # Man 17.0 H Lymphocytes # (Manual) 0.8 L Monocytes # (Manual) PT INR APTT Heparin Anti-Xa Level POC ABG pH POC ABG pCO2 POC ABG pO2 Sodium 135 L Potassium 3.5 L Chloride Carbon Dioxide 21 L BUN 22 H Creatinine Glucose POC Glucose Lactic Acid Calcium 8.1 L Phosphorus Magnesium Iron TIBC AST ALT Alkaline Phosphatase Lactate Dehydrogenase Total Creatine Kinase C-Reactive Protein Total Protein Albumin Prealbumin CA 19-9 Antigen Folate PTH Intact Urine WBC (Auto) 28.0 H Urine Creatinine Urine Chloride Urine Total Protein Fluid Glucose Fluid Total Protein Vancomycin Trough Miscellaneous Test Crossmatch 05/22/18 05/22/18 05/23/18 06:49 11:23 09:03 WBC RBC Hgb Hct MCV MCHC RDW Plt Count Lymph % (Auto) [place] % (Auto) Lymph # [place] # Seg Neutrophils % Seg Neuts % (Manual) Lymphocytes % (Manual) Monocytes % (Manual) Seg Neutrophils # Seg Neutrophils # Man Lymphocytes # (Manual) Monocytes # (Manual) PT INR APTT Heparin Anti-Xa Level POC ABG pH POC ABG pCO2 POC ABG pO2 Sodium 134 L Potassium 3.5 L Chloride Carbon Dioxide 21 L BUN 35 H 36 H Creatinine 1.7 H Glucose 107 H POC Glucose Lactic Acid Calcium 7.9 L Phosphorus Magnesium 2.50 H Iron TIBC AST ALT Alkaline Phosphatase Lactate Dehydrogenase Total Creatine Kinase C-Reactive Protein Total Protein Albumin Prealbumin CA 19-9 Antigen Folate PTH Intact Urine WBC (Auto) Urine Creatinine Urine Chloride Urine Total Protein Fluid Glucose Fluid Total Protein Vancomycin Trough Miscellaneous Test Crossmatch See Detail 05/23/18 05/23/18 05/23/18 09:03 09:03 17:34 WBC 26.3 H RBC 3.57 L Hgb 10.4 L Hct 31.1 L D MCV MCHC RDW Plt Count Lymph % (Auto) [place] % (Auto) Lymph # [place] # Seg Neutrophils % Seg Neuts % (Manual) Lymphocytes % (Manual) Monocytes % (Manual) Seg Neutrophils # Seg Neutrophils # Man Lymphocytes # (Manual) Monocytes # (Manual) PT 18.3 H INR 1.43 H APTT 40.0 H Heparin Anti-Xa Level POC ABG pH POC ABG pCO2 POC ABG pO2 Sodium Potassium Chloride Carbon Dioxide BUN Creatinine Glucose POC Glucose 108 H Lactic Acid Calcium Phosphorus Magnesium Iron TIBC AST ALT Alkaline Phosphatase Lactate Dehydrogenase Total Creatine Kinase C-Reactive Protein Total Protein Albumin Prealbumin CA 19-9 Antigen Folate PTH Intact Urine WBC (Auto) Urine Creatinine Urine Chloride Urine Total Protein Fluid Glucose Fluid Total Protein Vancomycin Trough Miscellaneous Test Crossmatch 05/23/18 05/24/18 05/24/18 21:14 04:43 08:04 WBC RBC Hgb Hct MCV MCHC RDW Plt Count Lymph % (Auto) [place] % (Auto) Lymph # [place] # Seg Neutrophils % Seg Neuts % (Manual) Lymphocytes % (Manual) Monocytes % (Manual) Seg Neutrophils # Seg Neutrophils # Man Lymphocytes # (Manual) Monocytes # (Manual) PT INR APTT Heparin Anti-Xa Level POC ABG pH POC ABG pCO2 POC ABG pO2 Sodium 146 H Potassium Chloride 108.6 H Carbon Dioxide BUN 33 H Creatinine Glucose 109 H POC Glucose 110 H 106 H Lactic Acid Calcium 8.3 L Phosphorus Magnesium 2.50 H Iron TIBC AST ALT Alkaline Phosphatase Lactate Dehydrogenase Total Creatine Kinase C-Reactive Protein Total Protein Albumin Prealbumin CA 19-9 Antigen Folate PTH Intact Urine WBC (Auto) Urine Creatinine Urine Chloride Urine Total Protein Fluid Glucose Fluid Total Protein Vancomycin Trough Miscellaneous Test Crossmatch 05/25/18 05/25/18 05/25/18 05:42 05:49 19:50 WBC RBC Hgb Hct MCV MCHC RDW Plt Count Lymph % (Auto) [place] % (Auto) Lymph # [place] # Seg Neutrophils % Seg Neuts % (Manual) Lymphocytes % (Manual) Monocytes % (Manual) Seg Neutrophils # Seg Neutrophils # Man Lymphocytes # (Manual) Monocytes # (Manual) PT INR APTT Heparin Anti-Xa Level POC ABG pH POC ABG pCO2 POC ABG pO2 Sodium 150 H Potassium Chloride 112.5 H Carbon Dioxide BUN 34 H Creatinine Glucose 102 H POC Glucose 107 H Lactic Acid Calcium Phosphorus Magnesium Iron TIBC AST ALT Alkaline Phosphatase Lactate Dehydrogenase Total Creatine Kinase C-Reactive Protein 34.50 H Total Protein Albumin Prealbumin CA 19-9 Antigen Folate PTH Intact Urine WBC (Auto) Urine Creatinine Urine Chloride Urine Total Protein Fluid Glucose Fluid Total Protein Vancomycin Trough Miscellaneous Test Crossmatch 05/25/18 05/25/18 05/25/18 19:50 21:05 22:46 WBC RBC Hgb Hct MCV MCHC RDW Plt Count Lymph % (Auto) [place] % (Auto) Lymph # [place] # Seg Neutrophils % Seg Neuts % (Manual) Lymphocytes % (Manual) Monocytes % (Manual) Seg Neutrophils # Seg Neutrophils # Man Lymphocytes # (Manual) Monocytes # (Manual) PT INR APTT Heparin Anti-Xa Level POC ABG pH 7.483 H POC ABG pCO2 24.0 L POC ABG pO2 72 L Sodium Potassium Chloride Carbon Dioxide BUN Creatinine Glucose POC Glucose Lactic Acid 5.90 H* Calcium Phosphorus Magnesium Iron TIBC AST ALT Alkaline Phosphatase Lactate Dehydrogenase Total Creatine Kinase C-Reactive Protein Total Protein Albumin Prealbumin CA 19-9 Antigen Folate PTH Intact Urine WBC (Auto) Urine Creatinine Urine Chloride Urine Total Protein Fluid Glucose Fluid Total Protein Vancomycin Trough 25.1 H Miscellaneous Test Crossmatch 05/25/18 05/26/18 05/26/18 22:46 00:21 00:51 WBC RBC Hgb Hct MCV MCHC RDW Plt Count Lymph % (Auto) [place] % (Auto) Lymph # [place] # Seg Neutrophils % Seg Neuts % (Manual) Lymphocytes % (Manual) Monocytes % (Manual) Seg Neutrophils # Seg Neutrophils # Man Lymphocytes # (Manual) Monocytes # (Manual) PT INR APTT Heparin Anti-Xa Level POC ABG pH POC ABG pCO2 POC ABG pO2 Sodium Potassium Chloride Carbon Dioxide BUN Creatinine Glucose POC Glucose 133 H Lactic Acid 8.10 H* 6.20 H* Calcium Phosphorus Magnesium Iron TIBC AST ALT Alkaline Phosphatase Lactate Dehydrogenase Total Creatine Kinase C-Reactive Protein Total Protein Albumin Prealbumin CA 19-9 Antigen Folate PTH Intact Urine WBC (Auto) Urine Creatinine Urine Chloride Urine Total Protein Fluid Glucose Fluid Total Protein Vancomycin Trough Miscellaneous Test Crossmatch 05/26/18 05/26/18 05/26/18 01:13 02:24 02:24 WBC 18.7 H RBC Hgb 11.6 L Hct MCV MCHC RDW Plt Count Lymph % (Auto) [place] % (Auto) Lymph # [place] # Seg Neutrophils % Seg Neuts % (Manual) Lymphocytes % (Manual) Monocytes % (Manual) Seg Neutrophils # Seg Neutrophils # Man Lymphocytes # (Manual) Monocytes # (Manual) PT INR APTT Heparin Anti-Xa Level POC ABG pH POC ABG pCO2 POC ABG pO2 Sodium 147 H Potassium 6.2 H* D Chloride 111.9 H Carbon Dioxide 19 L BUN 80 H Creatinine 5.1 H D Glucose 112 H POC Glucose Lactic Acid 5.20 H* Calcium 6.7 L D Phosphorus Magnesium Iron TIBC AST ALT Alkaline Phosphatase Lactate Dehydrogenase Total Creatine Kinase C-Reactive Protein Total Protein Albumin Prealbumin CA 19-9 Antigen Folate PTH Intact Urine WBC (Auto) Urine Creatinine Urine Chloride Urine Total Protein Fluid Glucose Fluid Total Protein Vancomycin Trough Miscellaneous Test Crossmatch 05/26/18 05/26/18 05/26/18 04:20 04:20 05:39 WBC RBC Hgb Hct MCV MCHC RDW Plt Count Lymph % (Auto) [place] % (Auto) Lymph # [place] # Seg Neutrophils % Seg Neuts % (Manual) Lymphocytes % (Manual) Monocytes % (Manual) Seg Neutrophils # Seg Neutrophils # Man Lymphocytes # (Manual) Monocytes # (Manual) PT INR APTT Heparin Anti-Xa Level POC ABG pH POC ABG pCO2 POC ABG pO2 Sodium 150 H Potassium Chloride 110.0 H Carbon Dioxide 19 L BUN 66 H Creatinine Glucose 166 H POC Glucose 187 H Lactic Acid 5.10 H* Calcium 6.9 L Phosphorus 6.70 H D Magnesium Iron TIBC AST ALT Alkaline Phosphatase Lactate Dehydrogenase Total Creatine Kinase C-Reactive Protein Total Protein Albumin Prealbumin CA 19-9 Antigen Folate PTH Intact Urine WBC (Auto) Urine Creatinine Urine Chloride Urine Total Protein Fluid Glucose Fluid Total Protein Vancomycin Trough Miscellaneous Test Crossmatch 05/26/18 05/26/18 05/26/18 06:02 07:29 11:00 WBC RBC Hgb Hct MCV MCHC RDW Plt Count Lymph % (Auto) [place] % (Auto) Lymph # [place] # Seg Neutrophils % Seg Neuts % (Manual) Lymphocytes % (Manual) Monocytes % (Manual) Seg Neutrophils # Seg Neutrophils # Man Lymphocytes # (Manual) Monocytes # (Manual) PT INR APTT Heparin Anti-Xa Level POC ABG pH POC ABG pCO2 28.8 L POC ABG pO2 Sodium Potassium Chloride Carbon Dioxide BUN Creatinine Glucose POC Glucose Lactic Acid 4.80 H* 3.80 H* Calcium Phosphorus Magnesium Iron TIBC AST ALT Alkaline Phosphatase Lactate Dehydrogenase Total Creatine Kinase C-Reactive Protein Total Protein Albumin Prealbumin CA 19-9 Antigen Folate PTH Intact Urine WBC (Auto) Urine Creatinine Urine Chloride Urine Total Protein Fluid Glucose Fluid Total Protein Vancomycin Trough Miscellaneous Test Crossmatch 05/26/18 05/26/18 05/26/18 11:01 12:28 18:00 WBC RBC Hgb Hct MCV MCHC RDW Plt Count Lymph % (Auto) [place] % (Auto) Lymph # [place] # Seg Neutrophils % Seg Neuts % (Manual) Lymphocytes % (Manual) Monocytes % (Manual) Seg Neutrophils # Seg Neutrophils # Man Lymphocytes # (Manual) Monocytes # (Manual) PT INR APTT Heparin Anti-Xa Level POC ABG pH POC ABG pCO2 POC ABG pO2 Sodium 150 H 151 H Potassium 5.3 H D 6.1 H* Chloride 110.3 H 117.0 H Carbon Dioxide 21 L 20 L BUN 75 H 77 H Creatinine 4.3 H D 4.6 H Glucose 161 H POC Glucose 114 H Lactic Acid Calcium 7.5 L 6.7 L Phosphorus Magnesium Iron TIBC AST 1041 H ALT 406 H Alkaline Phosphatase 281 H Lactate Dehydrogenase Total Creatine Kinase C-Reactive Protein Total Protein 4.4 L Albumin 1.3 L Prealbumin CA 19-9 Antigen Folate PTH Intact Urine WBC (Auto) Urine Creatinine Urine Chloride Urine Total Protein Fluid Glucose Fluid Total Protein Vancomycin Trough Miscellaneous Test Crossmatch 05/26/18 05/26/18 05/27/18 18:02 19:17 01:01 WBC 21.7 H RBC 2.70 L Hgb 7.8 L D Hct 24.6 L D MCV MCHC RDW 15.3 H Plt Count Lymph % (Auto) [place] % (Auto) Lymph # [place] # Seg Neutrophils % Seg Neuts % (Manual) 94.0 H Lymphocytes % (Manual) 3.0 L Monocytes % (Manual) Seg Neutrophils # Seg Neutrophils # Man 20.4 H Lymphocytes # (Manual) 0.7 L Monocytes # (Manual) PT INR APTT Heparin Anti-Xa Level POC ABG pH 7.159 L 7.205 L POC ABG pCO2 54.5 H 53.0 H POC ABG pO2 252 H Sodium Potassium Chloride Carbon Dioxide BUN Creatinine Glucose POC Glucose Lactic Acid Calcium Phosphorus Magnesium Iron TIBC AST ALT Alkaline Phosphatase Lactate Dehydrogenase Total Creatine Kinase C-Reactive Protein Total Protein Albumin Prealbumin CA 19-9 Antigen Folate PTH Intact Urine WBC (Auto) Urine Creatinine Urine Chloride Urine Total Protein Fluid Glucose Fluid Total Protein Vancomycin Trough Miscellaneous Test Crossmatch 05/27/18 05/27/18 05/27/18 05:15 05:15 06:11 WBC 24.9 H RBC 2.86 L Hgb 8.1 L Hct 25.9 L MCV MCHC RDW 15.5 H Plt Count Lymph % (Auto) [place] % (Auto) Lymph # [place] # Seg Neutrophils % Seg Neuts % (Manual) Lymphocytes % (Manual) Monocytes % (Manual) Seg Neutrophils # Seg Neutrophils # Man Lymphocytes # (Manual) Monocytes # (Manual) PT INR APTT Heparin Anti-Xa Level POC ABG pH 7.265 L POC ABG pCO2 46.2 H POC ABG pO2 111 H Sodium 149 H Potassium 6.9 H* Chloride 113.5 H Carbon Dioxide BUN 89 H Creatinine 5.2 H Glucose 118 H POC Glucose Lactic Acid Calcium 7.0 L Phosphorus 9.70 H D Magnesium Iron TIBC AST 876 H ALT 408 H Alkaline Phosphatase Lactate Dehydrogenase Total Creatine Kinase C-Reactive Protein Total Protein 5.2 L Albumin 1.5 L Prealbumin CA 19-9 Antigen Folate PTH Intact Urine WBC (Auto) Urine Creatinine Urine Chloride Urine Total Protein Fluid Glucose Fluid Total Protein Vancomycin Trough Miscellaneous Test Crossmatch 05/27/18 05/27/18 05/27/18 08:48 10:22 10:22 WBC RBC Hgb Hct MCV MCHC RDW Plt Count Lymph % (Auto) [place] % (Auto) Lymph # [place] # Seg Neutrophils % Seg Neuts % (Manual) Lymphocytes % (Manual) Monocytes % (Manual) Seg Neutrophils # Seg Neutrophils # Man Lymphocytes # (Manual) Monocytes # (Manual) PT INR APTT Heparin Anti-Xa Level POC ABG pH POC ABG pCO2 POC ABG pO2 Sodium 146 H Potassium 6.1 H* Chloride 108.2 H Carbon Dioxide 21 L BUN 88 H Creatinine 5.6 H Glucose 163 H POC Glucose 164 H Lactic Acid Calcium 6.7 L Phosphorus Magnesium Iron TIBC AST ALT Alkaline Phosphatase Lactate Dehydrogenase Total Creatine Kinase C-Reactive Protein 40.70 H Total Protein Albumin Prealbumin CA 19-9 Antigen Folate PTH Intact Urine WBC (Auto) Urine Creatinine Urine Chloride Urine Total Protein Fluid Glucose Fluid Total Protein Vancomycin Trough Miscellaneous Test Crossmatch 05/27/18 05/27/18 05/27/18 13:02 17:39 23:27 WBC RBC Hgb Hct MCV MCHC RDW Plt Count Lymph % (Auto) [place] % (Auto) Lymph # [place] # Seg Neutrophils % Seg Neuts % (Manual) Lymphocytes % (Manual) Monocytes % (Manual) Seg Neutrophils # Seg Neutrophils # Man Lymphocytes # (Manual) Monocytes # (Manual) PT INR APTT Heparin Anti-Xa Level POC ABG pH POC ABG pCO2 POC ABG pO2 Sodium Potassium Chloride Carbon Dioxide BUN Creatinine Glucose POC Glucose 59 L 132 H Lactic Acid Calcium Phosphorus Magnesium Iron TIBC AST ALT Alkaline Phosphatase Lactate Dehydrogenase Total Creatine Kinase C-Reactive Protein Total Protein Albumin Prealbumin CA 19-9 Antigen Folate PTH Intact Urine WBC (Auto) Urine Creatinine Urine Chloride Urine Total Protein Fluid Glucose Fluid Total Protein Vancomycin Trough Miscellaneous Test Flexitest 1 H Crossmatch 05/27/18 05/28/18 05/28/18 Unknown 04:32 05:00 WBC RBC Hgb Hct MCV MCHC RDW Plt Count Lymph % (Auto) [place] % (Auto) Lymph # [place] # Seg Neutrophils % Seg Neuts % (Manual) Lymphocytes % (Manual) Monocytes % (Manual) Seg Neutrophils # Seg Neutrophils # Man Lymphocytes # (Manual) Monocytes # (Manual) PT INR APTT Heparin Anti-Xa Level POC ABG pH POC ABG pCO2 POC ABG pO2 134 H Sodium Potassium Chloride Carbon Dioxide BUN 69 H Creatinine 4.4 H Glucose 118 H POC Glucose Lactic Acid Calcium 8.0 L D Phosphorus 6.80 H D Magnesium Iron TIBC AST ALT Alkaline Phosphatase Lactate Dehydrogenase Total Creatine Kinase C-Reactive Protein Total Protein Albumin Prealbumin CA 19-9 Antigen Folate PTH Intact Urine WBC (Auto) 120.0 H Urine Creatinine Urine Chloride Urine Total Protein Fluid Glucose Fluid Total Protein Vancomycin Trough Miscellaneous Test Crossmatch 05/28/18 05/28/18 05/28/18 05:00 05:27 13:04 WBC 26.5 H RBC 2.69 L Hgb 7.7 L Hct 23.6 L MCV MCHC RDW Plt Count Lymph % (Auto) [place] % (Auto) Lymph # [place] # Seg Neutrophils % Seg Neuts % (Manual) 96.0 H Lymphocytes % (Manual) 0 L Monocytes % (Manual) Seg Neutrophils # Seg Neutrophils # Man 25.4 H Lymphocytes # (Manual) 0.0 L Monocytes # (Manual) PT INR APTT Heparin Anti-Xa Level POC ABG pH POC ABG pCO2 POC ABG pO2 Sodium Potassium Chloride Carbon Dioxide BUN Creatinine Glucose POC Glucose 128 H 155 H Lactic Acid Calcium Phosphorus Magnesium Iron TIBC AST ALT Alkaline Phosphatase Lactate Dehydrogenase Total Creatine Kinase C-Reactive Protein Total Protein Albumin Prealbumin CA 19-9 Antigen Folate PTH Intact Urine WBC (Auto) Urine Creatinine Urine Chloride Urine Total Protein Fluid Glucose Fluid Total Protein Vancomycin Trough Miscellaneous Test Crossmatch 05/28/18 05/29/18 05/29/18 17:56 03:35 04:00 WBC RBC Hgb Hct MCV MCHC RDW Plt Count Lymph % (Auto) [place] % (Auto) Lymph # [place] # Seg Neutrophils % Seg Neuts % (Manual) Lymphocytes % (Manual) Monocytes % (Manual) Seg Neutrophils # Seg Neutrophils # Man Lymphocytes # (Manual) Monocytes # (Manual) PT INR APTT Heparin Anti-Xa Level POC ABG pH 7.471 H POC ABG pCO2 POC ABG pO2 78 L Sodium Potassium Chloride Carbon Dioxide BUN 50 H Creatinine 3.9 H Glucose POC Glucose 110 H Lactic Acid Calcium 7.7 L Phosphorus Magnesium 1.50 L Iron TIBC AST 218 H ALT 204 H Alkaline Phosphatase Lactate Dehydrogenase Total Creatine Kinase C-Reactive Protein Total Protein 5.4 L Albumin 1.6 L Prealbumin CA 19-9 Antigen Folate PTH Intact Urine WBC (Auto) Urine Creatinine Urine Chloride Urine Total Protein Fluid Glucose Fluid Total Protein Vancomycin Trough Miscellaneous Test Crossmatch 05/29/18 05/29/18 05/30/18 11:51 23:56 04:54 WBC RBC Hgb Hct MCV MCHC RDW Plt Count Lymph % (Auto) [place] % (Auto) Lymph # [place] # Seg Neutrophils % Seg Neuts % (Manual) Lymphocytes % (Manual) Monocytes % (Manual) Seg Neutrophils # Seg Neutrophils # Man Lymphocytes # (Manual) Monocytes # (Manual) PT INR APTT Heparin Anti-Xa Level POC ABG pH POC ABG pCO2 POC ABG pO2 Sodium Potassium Chloride Carbon Dioxide BUN Creatinine Glucose POC Glucose 131 H 119 H 115 H Lactic Acid Calcium Phosphorus Magnesium Iron TIBC AST ALT Alkaline Phosphatase Lactate Dehydrogenase Total Creatine Kinase C-Reactive Protein Total Protein Albumin Prealbumin CA 19-9 Antigen Folate PTH Intact Urine WBC (Auto) Urine Creatinine Urine Chloride Urine Total Protein Fluid Glucose Fluid Total Protein Vancomycin Trough Miscellaneous Test Crossmatch 05/30/18 05/30/18 05/30/18 05:07 05:15 05:15 WBC 16.2 H RBC 2.53 L Hgb 7.4 L Hct 21.9 L MCV MCHC RDW Plt Count Lymph % (Auto) [place] % (Auto) Lymph # [place] # Seg Neutrophils % Seg Neuts % (Manual) Lymphocytes % (Manual) Monocytes % (Manual) Seg Neutrophils # Seg Neutrophils # Man Lymphocytes # (Manual) Monocytes # (Manual) PT INR APTT Heparin Anti-Xa Level POC ABG pH POC ABG pCO2 34.5 L POC ABG pO2 133 H Sodium 135 L Potassium Chloride 97.5 L Carbon Dioxide BUN 69 H Creatinine 5.4 H Glucose 105 H POC Glucose Lactic Acid Calcium 7.5 L Phosphorus 5.30 H D Magnesium Iron TIBC AST ALT Alkaline Phosphatase Lactate Dehydrogenase Total Creatine Kinase C-Reactive Protein Total Protein Albumin Prealbumin CA 19-9 Antigen Folate PTH Intact Urine WBC (Auto) Urine Creatinine Urine Chloride Urine Total Protein Fluid Glucose Fluid Total Protein Vancomycin Trough Miscellaneous Test Crossmatch 05/30/18 05/30/18 05/31/18 12:13 17:10 04:50 WBC 18.7 H RBC 2.86 L Hgb 8.2 L Hct 24.8 L MCV MCHC RDW Plt Count Lymph % (Auto) [place] % (Auto) Lymph # [place] # Seg Neutrophils % Seg Neuts % (Manual) 91.0 H Lymphocytes % (Manual) 2.0 L Monocytes % (Manual) Seg Neutrophils # Seg Neutrophils # Man 17.0 H Lymphocytes # (Manual) 0.4 L Monocytes # (Manual) PT INR APTT Heparin Anti-Xa Level POC ABG pH POC ABG pCO2 POC ABG pO2 Sodium Potassium Chloride Carbon Dioxide BUN Creatinine Glucose POC Glucose 132 H 122 H Lactic Acid Calcium Phosphorus Magnesium Iron TIBC AST ALT Alkaline Phosphatase Lactate Dehydrogenase Total Creatine Kinase C-Reactive Protein Total Protein Albumin Prealbumin CA 19-9 Antigen Folate PTH Intact Urine WBC (Auto) Urine Creatinine Urine Chloride Urine Total Protein Fluid Glucose Fluid Total Protein Vancomycin Trough Miscellaneous Test Crossmatch 05/31/18 05/31/18 05/31/18 04:50 05:45 11:37 WBC RBC Hgb Hct MCV MCHC RDW Plt Count Lymph % (Auto) [place] % (Auto) Lymph # [place] # Seg Neutrophils % Seg Neuts % (Manual) Lymphocytes % (Manual) Monocytes % (Manual) Seg Neutrophils # Seg Neutrophils # Man Lymphocytes # (Manual) Monocytes # (Manual) PT INR APTT Heparin Anti-Xa Level POC ABG pH POC ABG pCO2 POC ABG pO2 Sodium 132 L Potassium Chloride 92.4 L Carbon Dioxide BUN 77 H Creatinine 5.9 H Glucose POC Glucose 111 H 136 H Lactic Acid Calcium 7.3 L Phosphorus 6.40 H D Magnesium Iron TIBC AST ALT Alkaline Phosphatase Lactate Dehydrogenase Total Creatine Kinase C-Reactive Protein Total Protein Albumin Prealbumin CA 19-9 Antigen Folate PTH Intact Urine WBC (Auto) Urine Creatinine Urine Chloride Urine Total Protein Fluid Glucose Fluid Total Protein Vancomycin Trough Miscellaneous Test Crossmatch 05/31/18 06/01/18 06/01/18 17:52 00:09 04:00 WBC RBC Hgb Hct MCV MCHC RDW Plt Count Lymph % (Auto) [place] % (Auto) Lymph # [place] # Seg Neutrophils % Seg Neuts % (Manual) Lymphocytes % (Manual) Monocytes % (Manual) Seg Neutrophils # Seg Neutrophils # Man Lymphocytes # (Manual) Monocytes # (Manual) PT INR APTT Heparin Anti-Xa Level POC ABG pH POC ABG pCO2 POC ABG pO2 Sodium Potassium Chloride 97.5 L Carbon Dioxide BUN 49 H Creatinine 4.2 H Glucose 104 H POC Glucose 115 H 114 H Lactic Acid Calcium 7.3 L Phosphorus 4.70 H D Magnesium Iron TIBC AST ALT Alkaline Phosphatase Lactate Dehydrogenase Total Creatine Kinase C-Reactive Protein Total Protein Albumin Prealbumin CA 19-9 Antigen Folate PTH Intact Urine WBC (Auto) Urine Creatinine Urine Chloride Urine Total Protein Fluid Glucose Fluid Total Protein Vancomycin Trough Miscellaneous Test Crossmatch 06/01/18 06/01/18 06/02/18 11:10 17:56 00:15 WBC RBC Hgb Hct MCV MCHC RDW Plt Count Lymph % (Auto) [place] % (Auto) Lymph # [place] # Seg Neutrophils % Seg Neuts % (Manual) Lymphocytes % (Manual) Monocytes % (Manual) Seg Neutrophils # Seg Neutrophils # Man Lymphocytes # (Manual) Monocytes # (Manual) PT INR APTT Heparin Anti-Xa Level POC ABG pH POC ABG pCO2 POC ABG pO2 Sodium Potassium Chloride Carbon Dioxide BUN Creatinine Glucose POC Glucose 123 H 126 H 135 H Lactic Acid Calcium Phosphorus Magnesium Iron TIBC AST ALT Alkaline Phosphatase Lactate Dehydrogenase Total Creatine Kinase C-Reactive Protein Total Protein Albumin Prealbumin CA 19-9 Antigen Folate PTH Intact Urine WBC (Auto) Urine Creatinine Urine Chloride Urine Total Protein Fluid Glucose Fluid Total Protein Vancomycin Trough Miscellaneous Test Crossmatch 06/02/18 06/02/18 06/02/18 05:23 12:42 13:05 WBC RBC Hgb Hct MCV MCHC RDW Plt Count Lymph % (Auto) [place] % (Auto) Lymph # [place] # Seg Neutrophils % Seg Neuts % (Manual) Lymphocytes % (Manual) Monocytes % (Manual) Seg Neutrophils # Seg Neutrophils # Man Lymphocytes # (Manual) Monocytes # (Manual) PT 17.1 H INR 1.34 H APTT Heparin Anti-Xa Level POC ABG pH POC ABG pCO2 POC ABG pO2 Sodium Potassium Chloride Carbon Dioxide BUN Creatinine Glucose POC Glucose 135 H 142 H Lactic Acid Calcium Phosphorus Magnesium Iron TIBC AST ALT Alkaline Phosphatase Lactate Dehydrogenase Total Creatine Kinase C-Reactive Protein Total Protein Albumin Prealbumin CA 19-9 Antigen Folate PTH Intact Urine WBC (Auto) Urine Creatinine Urine Chloride Urine Total Protein Fluid Glucose Fluid Total Protein Vancomycin Trough Miscellaneous Test Crossmatch 06/02/18 06/02/18 06/03/18 Unknown Unknown 00:54 WBC 20.8 H RBC 2.67 L Hgb 7.7 L Hct 23.0 L MCV MCHC RDW Plt Count 500 H Lymph % (Auto) [place] % (Auto) Lymph # [place] # Seg Neutrophils % Seg Neuts % (Manual) Lymphocytes % (Manual) Monocytes % (Manual) Seg Neutrophils # Seg Neutrophils # Man Lymphocytes # (Manual) Monocytes # (Manual) PT INR APTT Heparin Anti-Xa Level POC ABG pH POC ABG pCO2 POC ABG pO2 Sodium 136 L Potassium 3.5 L Chloride 96.9 L Carbon Dioxide BUN 62 H Creatinine 4.9 H Glucose 133 H POC Glucose 125 H Lactic Acid Calcium 7.2 L Phosphorus 5.00 H Magnesium Iron TIBC AST 46 H ALT 66 H Alkaline Phosphatase Lactate Dehydrogenase Total Creatine Kinase C-Reactive Protein Total Protein 5.7 L Albumin 1.5 L Prealbumin CA 19-9 Antigen Folate PTH Intact Urine WBC (Auto) Urine Creatinine Urine Chloride Urine Total Protein Fluid Glucose Fluid Total Protein Vancomycin Trough Miscellaneous Test Crossmatch 06/03/18 06/03/18 06/03/18 03:31 09:18 09:18 WBC RBC Hgb Hct MCV MCHC RDW Plt Count Lymph % (Auto) [place] % (Auto) Lymph # [place] # Seg Neutrophils % Seg Neuts % (Manual) Lymphocytes % (Manual) Monocytes % (Manual) Seg Neutrophils # Seg Neutrophils # Man Lymphocytes # (Manual) Monocytes # (Manual) PT 17.1 H INR 1.34 H APTT Heparin Anti-Xa Level POC ABG pH POC ABG pCO2 POC ABG pO2 Sodium 136 L Potassium Chloride Carbon Dioxide BUN 41 H Creatinine 3.4 H Glucose 129 H POC Glucose Lactic Acid Calcium 7.4 L Phosphorus Magnesium Iron TIBC AST ALT Alkaline Phosphatase Lactate Dehydrogenase Total Creatine Kinase C-Reactive Protein 11.10 H Total Protein Albumin Prealbumin CA 19-9 Antigen Folate PTH Intact Urine WBC (Auto) Urine Creatinine Urine Chloride Urine Total Protein Fluid Glucose Fluid Total Protein Vancomycin Trough Miscellaneous Test Crossmatch 06/03/18 06/03/18 06/03/18 16:07 21:18 Unknown WBC RBC Hgb Hct MCV MCHC RDW Plt Count Lymph % (Auto) [place] % (Auto) Lymph # [place] # Seg Neutrophils % Seg Neuts % (Manual) Lymphocytes % (Manual) Monocytes % (Manual) Seg Neutrophils # Seg Neutrophils # Man Lymphocytes # (Manual) Monocytes # (Manual) PT INR APTT Heparin Anti-Xa Level POC ABG pH POC ABG pCO2 POC ABG pO2 Sodium Potassium Chloride Carbon Dioxide BUN Creatinine Glucose POC Glucose 144 H 128 H Lactic Acid Calcium Phosphorus Magnesium Iron TIBC AST ALT Alkaline Phosphatase Lactate Dehydrogenase Total Creatine Kinase C-Reactive Protein Total Protein Albumin Prealbumin CA 19-9 Antigen Folate PTH Intact Urine WBC (Auto) Urine Creatinine Urine Chloride Urine Total Protein Fluid Glucose 10 L Fluid Total Protein 3.7 L Vancomycin Trough Miscellaneous Test Crossmatch 06/04/18 06/04/18 06/04/18 04:31 06:14 11:38 WBC RBC Hgb Hct MCV MCHC RDW Plt Count Lymph % (Auto) [place] % (Auto) Lymph # [place] # Seg Neutrophils % Seg Neuts % (Manual) Lymphocytes % (Manual) Monocytes % (Manual) Seg Neutrophils # Seg Neutrophils # Man Lymphocytes # (Manual) Monocytes # (Manual) PT INR APTT Heparin Anti-Xa Level POC ABG pH POC ABG pCO2 POC ABG pO2 Sodium Potassium Chloride Carbon Dioxide BUN 55 H Creatinine 3.7 H Glucose 151 H POC Glucose 145 H 129 H Lactic Acid Calcium 7.8 L Phosphorus 4.60 H Magnesium Iron TIBC AST ALT Alkaline Phosphatase Lactate Dehydrogenase Total Creatine Kinase C-Reactive Protein Total Protein Albumin Prealbumin CA 19-9 Antigen Folate PTH Intact Urine WBC (Auto) Urine Creatinine Urine Chloride Urine Total Protein Fluid Glucose Fluid Total Protein Vancomycin Trough Miscellaneous Test Crossmatch 06/04/18 06/04/18 06/04/18 17:09 20:00 21:29 WBC RBC Hgb 8.8 L Hct 27.3 L MCV MCHC RDW Plt Count Lymph % (Auto) [place] % (Auto) Lymph # [place] # Seg Neutrophils % Seg Neuts % (Manual) Lymphocytes % (Manual) Monocytes % (Manual) Seg Neutrophils # Seg Neutrophils # Man Lymphocytes # (Manual) Monocytes # (Manual) PT INR APTT Heparin Anti-Xa Level POC ABG pH POC ABG pCO2 POC ABG pO2 Sodium Potassium Chloride Carbon Dioxide BUN Creatinine Glucose POC Glucose 142 H 130 H Lactic Acid Calcium Phosphorus Magnesium Iron TIBC AST ALT Alkaline Phosphatase Lactate Dehydrogenase Total Creatine Kinase C-Reactive Protein Total Protein Albumin Prealbumin CA 19-9 Antigen Folate PTH Intact Urine WBC (Auto) Urine Creatinine Urine Chloride Urine Total Protein Fluid Glucose Fluid Total Protein Vancomycin Trough Miscellaneous Test Crossmatch 06/05/18 06/05/18 06/05/18 06:30 07:00 07:00 WBC 19.3 H RBC 2.94 L Hgb 8.3 L Hct 25.6 L MCV MCHC RDW 15.7 H Plt Count 568 H Lymph % (Auto) 4.7 L [place] % (Auto) Lymph # 0.9 L [place] # 1.1 H Seg Neutrophils % 88.9 H Seg Neuts % (Manual) Lymphocytes % (Manual) Monocytes % (Manual) Seg Neutrophils # 17.2 H Seg Neutrophils # Man Lymphocytes # (Manual) Monocytes # (Manual) PT INR APTT Heparin Anti-Xa Level POC ABG pH POC ABG pCO2 POC ABG pO2 Sodium Potassium 3.4 L D Chloride Carbon Dioxide BUN 67 H Creatinine 3.6 H Glucose 145 H POC Glucose 153 H Lactic Acid Calcium 7.9 L Phosphorus 4.60 H Magnesium Iron TIBC AST ALT Alkaline Phosphatase Lactate Dehydrogenase Total Creatine Kinase C-Reactive Protein Total Protein Albumin Prealbumin CA 19-9 Antigen Folate PTH Intact Urine WBC (Auto) Urine Creatinine Urine Chloride Urine Total Protein Fluid Glucose Fluid Total Protein Vancomycin Trough Miscellaneous Test Crossmatch 06/05/18 06/05/18 06/06/18 12:10 16:01 06:39 WBC RBC Hgb Hct MCV MCHC RDW Plt Count Lymph % (Auto) [place] % (Auto) Lymph # [place] # Seg Neutrophils % Seg Neuts % (Manual) Lymphocytes % (Manual) Monocytes % (Manual) Seg Neutrophils # Seg Neutrophils # Man Lymphocytes # (Manual) Monocytes # (Manual) PT INR APTT Heparin Anti-Xa Level POC ABG pH POC ABG pCO2 POC ABG pO2 Sodium Potassium Chloride Carbon Dioxide BUN Creatinine Glucose POC Glucose 150 H 129 H 131 H Lactic Acid Calcium Phosphorus Magnesium Iron TIBC AST ALT Alkaline Phosphatase Lactate Dehydrogenase Total Creatine Kinase C-Reactive Protein Total Protein Albumin Prealbumin CA 19-9 Antigen Folate PTH Intact Urine WBC (Auto) Urine Creatinine Urine Chloride Urine Total Protein Fluid Glucose Fluid Total Protein Vancomycin Trough Miscellaneous Test Crossmatch 06/06/18 06/06/18 06/06/18 07:14 07:14 07:14 WBC 16.5 H RBC 2.84 L Hgb 8.1 L Hct 25.2 L MCV MCHC RDW 16.4 H Plt Count 526 H Lymph % (Auto) 6.5 L [place] % (Auto) Lymph # 1.1 L [place] # 1.2 H Seg Neutrophils % 85.3 H Seg Neuts % (Manual) Lymphocytes % (Manual) Monocytes % (Manual) Seg Neutrophils # 14.1 H Seg Neutrophils # Man Lymphocytes # (Manual) Monocytes # (Manual) PT INR APTT Heparin Anti-Xa Level POC ABG pH POC ABG pCO2 POC ABG pO2 Sodium Potassium Chloride 109.1 H Carbon Dioxide 21 L BUN 76 H Creatinine 3.5 H Glucose 111 H POC Glucose Lactic Acid Calcium 8.1 L Phosphorus Magnesium Iron TIBC AST ALT Alkaline Phosphatase Lactate Dehydrogenase Total Creatine Kinase C-Reactive Protein 4.70 H Total Protein Albumin Prealbumin CA 19-9 Antigen Folate PTH Intact Urine WBC (Auto) Urine Creatinine Urine Chloride Urine Total Protein Fluid Glucose Fluid Total Protein Vancomycin Trough Miscellaneous Test Crossmatch 06/06/18 06/06/18 06/06/18 11:15 18:00 23:58 WBC RBC Hgb Hct MCV MCHC RDW Plt Count Lymph % (Auto) [place] % (Auto) Lymph # [place] # Seg Neutrophils % Seg Neuts % (Manual) Lymphocytes % (Manual) Monocytes % (Manual) Seg Neutrophils # Seg Neutrophils # Man Lymphocytes # (Manual) Monocytes # (Manual) PT INR APTT Heparin Anti-Xa Level POC ABG pH POC ABG pCO2 POC ABG pO2 Sodium Potassium Chloride Carbon Dioxide BUN Creatinine Glucose POC Glucose 127 H 130 H 114 H Lactic Acid Calcium Phosphorus Magnesium Iron TIBC AST ALT Alkaline Phosphatase Lactate Dehydrogenase Total Creatine Kinase C-Reactive Protein Total Protein Albumin Prealbumin CA 19-9 Antigen Folate PTH Intact Urine WBC (Auto) Urine Creatinine Urine Chloride Urine Total Protein Fluid Glucose Fluid Total Protein Vancomycin Trough Miscellaneous Test Crossmatch 06/07/18 06/07/18 06/07/18 05:45 05:45 05:54 WBC 15.5 H RBC 2.60 L Hgb 7.4 L Hct 23.1 L MCV MCHC RDW 16.5 H Plt Count 506 H Lymph % (Auto) 5.3 L [place] % (Auto) Lymph # 0.8 L [place] # 1.0 H Seg Neutrophils % 86.6 H Seg Neuts % (Manual) Lymphocytes % (Manual) Monocytes % (Manual) Seg Neutrophils # 13.4 H Seg Neutrophils # Man Lymphocytes # (Manual) Monocytes # (Manual) PT INR APTT Heparin Anti-Xa Level POC ABG pH POC ABG pCO2 POC ABG pO2 Sodium Potassium Chloride 108.4 H Carbon Dioxide BUN 84 H Creatinine 3.5 H Glucose 119 H POC Glucose 114 H Lactic Acid Calcium 8.1 L Phosphorus 5.10 H Magnesium Iron TIBC AST ALT Alkaline Phosphatase Lactate Dehydrogenase Total Creatine Kinase C-Reactive Protein Total Protein Albumin Prealbumin CA 19-9 Antigen Folate PTH Intact Urine WBC (Auto) Urine Creatinine Urine Chloride Urine Total Protein Fluid Glucose Fluid Total Protein Vancomycin Trough Miscellaneous Test Crossmatch 06/07/18 06/08/18 06/08/18 12:15 05:05 05:24 WBC RBC Hgb Hct MCV MCHC RDW Plt Count Lymph % (Auto) [place] % (Auto) Lymph # [place] # Seg Neutrophils % Seg Neuts % (Manual) Lymphocytes % (Manual) Monocytes % (Manual) Seg Neutrophils # Seg Neutrophils # Man Lymphocytes # (Manual) Monocytes # (Manual) PT INR APTT Heparin Anti-Xa Level POC ABG pH POC ABG pCO2 POC ABG pO2 Sodium 148 H Potassium Chloride 112.4 H Carbon Dioxide BUN 89 H Creatinine 3.4 H Glucose 120 H POC Glucose 148 H 115 H Lactic Acid Calcium 7.9 L Phosphorus Magnesium Iron TIBC AST ALT Alkaline Phosphatase Lactate Dehydrogenase Total Creatine Kinase C-Reactive Protein Total Protein Albumin Prealbumin CA 19-9 Antigen Folate PTH Intact Urine WBC (Auto) Urine Creatinine Urine Chloride Urine Total Protein Fluid Glucose Fluid Total Protein Vancomycin Trough Miscellaneous Test Crossmatch 06/08/18 06/08/18 06/08/18 21:36 21:43 21:43 WBC RBC 2.98 L Hgb 8.8 L Hct 26.6 L MCV MCHC RDW 16.7 H Plt Count 463 H Lymph % (Auto) 7.9 L [place] % (Auto) Lymph # 0.8 L [place] # Seg Neutrophils % 84.8 H Seg Neuts % (Manual) Lymphocytes % (Manual) Monocytes % (Manual) Seg Neutrophils # 8.6 H Seg Neutrophils # Man Lymphocytes # (Manual) Monocytes # (Manual) PT INR APTT Heparin Anti-Xa Level POC ABG pH POC ABG pCO2 POC ABG pO2 Sodium Potassium Chloride Carbon Dioxide BUN Creatinine Glucose POC Glucose Lactic Acid Calcium Phosphorus Magnesium Iron TIBC AST ALT Alkaline Phosphatase Lactate Dehydrogenase 297 H Total Creatine Kinase C-Reactive Protein Total Protein Albumin Prealbumin CA 19-9 Antigen 57 H Folate PTH Intact Urine WBC (Auto) Urine Creatinine Urine Chloride Urine Total Protein Fluid Glucose Fluid Total Protein Vancomycin Trough Miscellaneous Test Crossmatch 06/09/18 06/09/18 06/09/18 00:05 05:34 05:50 WBC RBC Hgb Hct MCV MCHC RDW Plt Count Lymph % (Auto) [place] % (Auto) Lymph # [place] # Seg Neutrophils % Seg Neuts % (Manual) Lymphocytes % (Manual) Monocytes % (Manual) Seg Neutrophils # Seg Neutrophils # Man Lymphocytes # (Manual) Monocytes # (Manual) PT INR APTT Heparin Anti-Xa Level POC ABG pH POC ABG pCO2 POC ABG pO2 Sodium 153 H Potassium Chloride 117.3 H Carbon Dioxide BUN 84 H Creatinine 3.2 H Glucose 117 H POC Glucose 140 H 146 H Lactic Acid Calcium 7.9 L Phosphorus Magnesium Iron TIBC AST ALT Alkaline Phosphatase Lactate Dehydrogenase Total Creatine Kinase C-Reactive Protein Total Protein Albumin Prealbumin CA 19-9 Antigen Folate PTH Intact Urine WBC (Auto) Urine Creatinine Urine Chloride Urine Total Protein Fluid Glucose Fluid Total Protein Vancomycin Trough Miscellaneous Test Crossmatch 06/09/18 06/09/18 06/09/18 05:50 07:37 10:34 WBC RBC 2.32 L Hgb 6.8 L Hct 20.7 L MCV MCHC RDW 16.7 H Plt Count Lymph % (Auto) [place] % (Auto) Lymph # [place] # Seg Neutrophils % Seg Neuts % (Manual) Lymphocytes % (Manual) Monocytes % (Manual) Seg Neutrophils # Seg Neutrophils # Man Lymphocytes # (Manual) Monocytes # (Manual) PT INR APTT Heparin Anti-Xa Level POC ABG pH POC ABG pCO2 POC ABG pO2 Sodium 149 H Potassium Chloride 114.6 H Carbon Dioxide BUN 84 H Creatinine 3.1 H Glucose 137 H POC Glucose Lactic Acid Calcium 7.7 L Phosphorus Magnesium Iron TIBC AST ALT Alkaline Phosphatase Lactate Dehydrogenase Total Creatine Kinase C-Reactive Protein Total Protein Albumin Prealbumin CA 19-9 Antigen Folate PTH Intact Urine WBC (Auto) Urine Creatinine Urine Chloride Urine Total Protein Fluid Glucose Fluid Total Protein Vancomycin Trough Miscellaneous Test Flexitest 1 H Crossmatch 06/09/18 06/09/18 06/09/18 10:41 11:56 13:24 WBC RBC 2.43 L Hgb 7.2 L Hct 21.6 L MCV MCHC RDW 16.8 H Plt Count Lymph % (Auto) [place] % (Auto) Lymph # [place] # Seg Neutrophils % Seg Neuts % (Manual) Lymphocytes % (Manual) Monocytes % (Manual) Seg Neutrophils # Seg Neutrophils # Man Lymphocytes # (Manual) Monocytes # (Manual) PT INR APTT Heparin Anti-Xa Level POC ABG pH POC ABG pCO2 POC ABG pO2 Sodium Potassium Chloride Carbon Dioxide BUN Creatinine Glucose POC Glucose 141 H Lactic Acid Calcium Phosphorus Magnesium Iron TIBC AST ALT Alkaline Phosphatase Lactate Dehydrogenase Total Creatine Kinase C-Reactive Protein Total Protein Albumin Prealbumin CA 19-9 Antigen Folate PTH Intact Urine WBC (Auto) Urine Creatinine Urine Chloride Urine Total Protein Fluid Glucose Fluid Total Protein Vancomycin Trough Miscellaneous Test Crossmatch See Detail 06/09/18 06/09/18 06/10/18 18:18 23:13 05:26 WBC RBC Hgb Hct MCV MCHC RDW Plt Count Lymph % (Auto) [place] % (Auto) Lymph # [place] # Seg Neutrophils % Seg Neuts % (Manual) Lymphocytes % (Manual) Monocytes % (Manual) Seg Neutrophils # Seg Neutrophils # Man Lymphocytes # (Manual) Monocytes # (Manual) PT INR APTT Heparin Anti-Xa Level POC ABG pH POC ABG pCO2 POC ABG pO2 Sodium 148 H Potassium Chloride 114.7 H Carbon Dioxide 21 L BUN 79 H Creatinine 3.2 H Glucose 121 H POC Glucose 156 H 163 H Lactic Acid Calcium 7.8 L Phosphorus Magnesium 1.60 L Iron TIBC AST ALT Alkaline Phosphatase Lactate Dehydrogenase Total Creatine Kinase C-Reactive Protein Total Protein Albumin Prealbumin CA 19-9 Antigen Folate PTH Intact Urine WBC (Auto) Urine Creatinine Urine Chloride Urine Total Protein Fluid Glucose Fluid Total Protein Vancomycin Trough Miscellaneous Test Crossmatch 06/10/18 06/10/18 06/10/18 05:26 05:31 17:15 WBC 11.1 H RBC 3.07 L Hgb 9.1 L Hct 27.6 L D MCV MCHC RDW 17.4 H Plt Count Lymph % (Auto) [place] % (Auto) Lymph # [place] # Seg Neutrophils % Seg Neuts % (Manual) Lymphocytes % (Manual) Monocytes % (Manual) Seg Neutrophils # Seg Neutrophils # Man Lymphocytes # (Manual) Monocytes # (Manual) PT INR APTT Heparin Anti-Xa Level POC ABG pH POC ABG pCO2 POC ABG pO2 Sodium Potassium Chloride Carbon Dioxide BUN Creatinine Glucose POC Glucose 128 H Lactic Acid Calcium Phosphorus Magnesium Iron TIBC AST ALT Alkaline Phosphatase Lactate Dehydrogenase Total Creatine Kinase C-Reactive Protein 3.60 H Total Protein Albumin Prealbumin CA 19-9 Antigen Folate PTH Intact Urine WBC (Auto) Urine Creatinine Urine Chloride Urine Total Protein Fluid Glucose Fluid Total Protein Vancomycin Trough Miscellaneous Test Crossmatch 06/11/18 06/11/18 06/11/18 01:13 05:41 05:41 WBC 14.6 H RBC 3.40 L Hgb 9.8 L Hct 30.7 L MCV MCHC RDW 18.1 H Plt Count Lymph % (Auto) [place] % (Auto) Lymph # [place] # Seg Neutrophils % Seg Neuts % (Manual) Lymphocytes % (Manual) Monocytes % (Manual) Seg Neutrophils # Seg Neutrophils # Man Lymphocytes # (Manual) Monocytes # (Manual) PT INR APTT Heparin Anti-Xa Level POC ABG pH POC ABG pCO2 POC ABG pO2 Sodium Potassium Chloride 110.8 H Carbon Dioxide 18 L BUN 77 H Creatinine 3.0 H Glucose 116 H POC Glucose 126 H Lactic Acid Calcium 7.9 L Phosphorus Magnesium Iron TIBC AST ALT Alkaline Phosphatase Lactate Dehydrogenase Total Creatine Kinase C-Reactive Protein Total Protein Albumin Prealbumin CA 19-9 Antigen Folate PTH Intact Urine WBC (Auto) Urine Creatinine Urine Chloride Urine Total Protein Fluid Glucose Fluid Total Protein Vancomycin Trough Miscellaneous Test Crossmatch 06/11/18 06/11/18 06/11/18 06:20 07:41 07:41 WBC RBC Hgb Hct MCV MCHC RDW Plt Count Lymph % (Auto) [place] % (Auto) Lymph # [place] # Seg Neutrophils % Seg Neuts % (Manual) Lymphocytes % (Manual) Monocytes % (Manual) Seg Neutrophils # Seg Neutrophils # Man Lymphocytes # (Manual) Monocytes # (Manual) PT INR APTT Heparin Anti-Xa Level POC ABG pH POC ABG pCO2 POC ABG pO2 Sodium Potassium Chloride Carbon Dioxide BUN Creatinine Glucose POC Glucose 136 H Lactic Acid Calcium Phosphorus Magnesium Iron TIBC AST ALT Alkaline Phosphatase Lactate Dehydrogenase Total Creatine Kinase C-Reactive Protein Total Protein Albumin Prealbumin CA 19-9 Antigen Folate PTH Intact Urine WBC (Auto) 10.0 H Urine Creatinine 41.2 H Urine Chloride 49.2 L Urine Total Protein 142 H Fluid Glucose Fluid Total Protein Vancomycin Trough Miscellaneous Test Crossmatch 06/11/18 06/12/18 06/12/18 18:35 00:34 04:12 WBC RBC 3.18 L Hgb 9.5 L Hct 28.7 L MCV MCHC RDW 18.5 H Plt Count Lymph % (Auto) 8.1 L [place] % (Auto) Lymph # 0.9 L [place] # Seg Neutrophils % 84.6 H Seg Neuts % (Manual) Lymphocytes % (Manual) Monocytes % (Manual) Seg Neutrophils # 9.1 H Seg Neutrophils # Man Lymphocytes # (Manual) Monocytes # (Manual) PT INR APTT Heparin Anti-Xa Level POC ABG pH POC ABG pCO2 POC ABG pO2 Sodium Potassium Chloride Carbon Dioxide BUN Creatinine Glucose POC Glucose 125 H 129 H Lactic Acid Calcium Phosphorus Magnesium Iron TIBC AST ALT Alkaline Phosphatase Lactate Dehydrogenase Total Creatine Kinase C-Reactive Protein Total Protein Albumin Prealbumin CA 19-9 Antigen Folate PTH Intact Urine WBC (Auto) Urine Creatinine Urine Chloride Urine Total Protein Fluid Glucose Fluid Total Protein Vancomycin Trough Miscellaneous Test Crossmatch 06/12/18 06/12/18 06/12/18 04:12 06:30 11:43 WBC RBC Hgb Hct MCV MCHC RDW Plt Count Lymph % (Auto) [place] % (Auto) Lymph # [place] # Seg Neutrophils % Seg Neuts % (Manual) Lymphocytes % (Manual) Monocytes % (Manual) Seg Neutrophils # Seg Neutrophils # Man Lymphocytes # (Manual) Monocytes # (Manual) PT INR APTT Heparin Anti-Xa Level POC ABG pH POC ABG pCO2 POC ABG pO2 Sodium Potassium Chloride 108.5 H Carbon Dioxide 21 L BUN 72 H Creatinine 3.0 H Glucose 122 H POC Glucose 129 H 126 H Lactic Acid Calcium 7.8 L Phosphorus Magnesium Iron TIBC AST 45 H ALT Alkaline Phosphatase 200 H Lactate Dehydrogenase Total Creatine Kinase 34 L C-Reactive Protein Total Protein Albumin 1.7 L Prealbumin CA 19-9 Antigen Folate PTH Intact Urine WBC (Auto) Urine Creatinine Urine Chloride Urine Total Protein Fluid Glucose Fluid Total Protein Vancomycin Trough Miscellaneous Test Crossmatch 06/12/18 06/12/18 06/13/18 16:00 23:56 03:44 WBC RBC Hgb Hct MCV MCHC RDW Plt Count Lymph % (Auto) [place] % (Auto) Lymph # [place] # Seg Neutrophils % Seg Neuts % (Manual) Lymphocytes % (Manual) Monocytes % (Manual) Seg Neutrophils # Seg Neutrophils # Man Lymphocytes # (Manual) Monocytes # (Manual) PT INR APTT Heparin Anti-Xa Level POC ABG pH POC ABG pCO2 POC ABG pO2 Sodium Potassium Chloride Carbon Dioxide BUN Creatinine Glucose POC Glucose 123 H 128 H 121 H Lactic Acid Calcium Phosphorus Magnesium Iron TIBC AST ALT Alkaline Phosphatase Lactate Dehydrogenase Total Creatine Kinase C-Reactive Protein Total Protein Albumin Prealbumin CA 19-9 Antigen Folate PTH Intact Urine WBC (Auto) Urine Creatinine Urine Chloride Urine Total Protein Fluid Glucose Fluid Total Protein Vancomycin Trough Miscellaneous Test Crossmatch 06/13/18 06/13/18 06/14/18 05:59 11:29 01:08 WBC RBC Hgb Hct MCV MCHC RDW Plt Count Lymph % (Auto) [place] % (Auto) Lymph # [place] # Seg Neutrophils % Seg Neuts % (Manual) Lymphocytes % (Manual) Monocytes % (Manual) Seg Neutrophils # Seg Neutrophils # Man Lymphocytes # (Manual) Monocytes # (Manual) PT INR APTT Heparin Anti-Xa Level POC ABG pH POC ABG pCO2 POC ABG pO2 Sodium 134 L Potassium Chloride Carbon Dioxide 20 L BUN 69 H Creatinine 2.9 H Glucose 113 H POC Glucose 124 H 128 H Lactic Acid Calcium 7.8 L Phosphorus Magnesium Iron TIBC AST ALT Alkaline Phosphatase Lactate Dehydrogenase Total Creatine Kinase C-Reactive Protein Total Protein Albumin Prealbumin CA 19-9 Antigen Folate PTH Intact Urine WBC (Auto) Urine Creatinine Urine Chloride Urine Total Protein Fluid Glucose Fluid Total Protein Vancomycin Trough Miscellaneous Test Crossmatch 06/14/18 06/14/18 06/14/18 06:42 06:42 09:50 WBC 11.3 H RBC 3.02 L Hgb 8.8 L Hct 27.3 L MCV MCHC RDW 18.6 H Plt Count Lymph % (Auto) [place] % (Auto) Lymph # [place] # Seg Neutrophils % Seg Neuts % (Manual) Lymphocytes % (Manual) Monocytes % (Manual) Seg Neutrophils # Seg Neutrophils # Man Lymphocytes # (Manual) Monocytes # (Manual) PT 16.3 H INR 1.24 H APTT Heparin Anti-Xa Level POC ABG pH POC ABG pCO2 POC ABG pO2 Sodium 132 L Potassium Chloride Carbon Dioxide 19 L BUN 71 H Creatinine 3.1 H Glucose POC Glucose Lactic Acid Calcium 7.8 L Phosphorus Magnesium Iron TIBC AST ALT Alkaline Phosphatase Lactate Dehydrogenase Total Creatine Kinase C-Reactive Protein Total Protein Albumin Prealbumin CA 19-9 Antigen Folate PTH Intact Urine WBC (Auto) Urine Creatinine Urine Chloride Urine Total Protein Fluid Glucose Fluid Total Protein Vancomycin Trough Miscellaneous Test Crossmatch 06/14/18 06/14/18 06/15/18 12:31 17:04 01:18 WBC RBC Hgb Hct MCV MCHC RDW Plt Count Lymph % (Auto) [place] % (Auto) Lymph # [place] # Seg Neutrophils % Seg Neuts % (Manual) Lymphocytes % (Manual) Monocytes % (Manual) Seg Neutrophils # Seg Neutrophils # Man Lymphocytes # (Manual) Monocytes # (Manual) PT INR APTT Heparin Anti-Xa Level POC ABG pH POC ABG pCO2 POC ABG pO2 Sodium Potassium Chloride Carbon Dioxide BUN Creatinine Glucose POC Glucose 125 H 109 H 124 H Lactic Acid Calcium Phosphorus Magnesium Iron TIBC AST ALT Alkaline Phosphatase Lactate Dehydrogenase Total Creatine Kinase C-Reactive Protein Total Protein Albumin Prealbumin CA 19-9 Antigen Folate PTH Intact Urine WBC (Auto) Urine Creatinine Urine Chloride Urine Total Protein Fluid Glucose Fluid Total Protein Vancomycin Trough Miscellaneous Test Crossmatch 06/15/18 06/15/18 06/15/18 05:27 06:34 11:42 WBC RBC Hgb Hct MCV MCHC RDW Plt Count Lymph % (Auto) [place] % (Auto) Lymph # [place] # Seg Neutrophils % Seg Neuts % (Manual) Lymphocytes % (Manual) Monocytes % (Manual) Seg Neutrophils # Seg Neutrophils # Man Lymphocytes # (Manual) Monocytes # (Manual) PT INR APTT Heparin Anti-Xa Level POC ABG pH POC ABG pCO2 POC ABG pO2 Sodium 134 L Potassium Chloride Carbon Dioxide 17 L BUN 77 H Creatinine 3.2 H Glucose 110 H POC Glucose 116 H 131 H Lactic Acid Calcium 8.1 L Phosphorus 6.20 H D Magnesium Iron TIBC AST ALT Alkaline Phosphatase Lactate Dehydrogenase Total Creatine Kinase C-Reactive Protein Total Protein Albumin Prealbumin CA 19-9 Antigen Folate PTH Intact Urine WBC (Auto) Urine Creatinine Urine Chloride Urine Total Protein Fluid Glucose Fluid Total Protein Vancomycin Trough Miscellaneous Test Crossmatch 06/16/18 06/16/18 06/16/18 00:57 05:10 06:07 WBC RBC Hgb Hct MCV MCHC RDW Plt Count Lymph % (Auto) [place] % (Auto) Lymph # [place] # Seg Neutrophils % Seg Neuts % (Manual) Lymphocytes % (Manual) Monocytes % (Manual) Seg Neutrophils # Seg Neutrophils # Man Lymphocytes # (Manual) Monocytes # (Manual) PT INR APTT Heparin Anti-Xa Level POC ABG pH POC ABG pCO2 POC ABG pO2 Sodium 132 L Potassium Chloride Carbon Dioxide 19 L BUN 83 H Creatinine 3.2 H Glucose 113 H POC Glucose 137 H 109 H Lactic Acid Calcium 7.8 L Phosphorus 6.10 H Magnesium Iron TIBC AST ALT Alkaline Phosphatase Lactate Dehydrogenase Total Creatine Kinase C-Reactive Protein Total Protein Albumin Prealbumin CA 19-9 Antigen Folate PTH Intact Urine WBC (Auto) Urine Creatinine Urine Chloride Urine Total Protein Fluid Glucose Fluid Total Protein Vancomycin Trough Miscellaneous Test Crossmatch 06/16/18 06/16/18 06/17/18 11:51 15:46 00:02 WBC RBC Hgb Hct MCV MCHC RDW Plt Count Lymph % (Auto) [place] % (Auto) Lymph # [place] # Seg Neutrophils % Seg Neuts % (Manual) Lymphocytes % (Manual) Monocytes % (Manual) Seg Neutrophils # Seg Neutrophils # Man Lymphocytes # (Manual) Monocytes # (Manual) PT INR APTT Heparin Anti-Xa Level POC ABG pH POC ABG pCO2 POC ABG pO2 Sodium Potassium Chloride Carbon Dioxide BUN Creatinine Glucose POC Glucose 126 H 127 H 107 H Lactic Acid Calcium Phosphorus Magnesium Iron TIBC AST ALT Alkaline Phosphatase Lactate Dehydrogenase Total Creatine Kinase C-Reactive Protein Total Protein Albumin Prealbumin CA 19-9 Antigen Folate PTH Intact Urine WBC (Auto) Urine Creatinine Urine Chloride Urine Total Protein Fluid Glucose Fluid Total Protein Vancomycin Trough Miscellaneous Test Crossmatch 06/17/18 06/17/18 06/17/18 05:52 11:46 16:58 WBC RBC Hgb Hct MCV MCHC RDW Plt Count Lymph % (Auto) [place] % (Auto) Lymph # [place] # Seg Neutrophils % Seg Neuts % (Manual) Lymphocytes % (Manual) Monocytes % (Manual) Seg Neutrophils # Seg Neutrophils # Man Lymphocytes # (Manual) Monocytes # (Manual) PT INR APTT Heparin Anti-Xa Level POC ABG pH POC ABG pCO2 POC ABG pO2 Sodium 133 L Potassium Chloride Carbon Dioxide 17 L BUN 87 H Creatinine 3.2 H Glucose POC Glucose 129 H 140 H Lactic Acid Calcium 8.1 L Phosphorus 6.50 H Magnesium Iron TIBC AST ALT Alkaline Phosphatase Lactate Dehydrogenase Total Creatine Kinase C-Reactive Protein Total Protein Albumin Prealbumin 0.130 L CA 19-9 Antigen Folate PTH Intact Urine WBC (Auto) Urine Creatinine Urine Chloride Urine Total Protein Fluid Glucose Fluid Total Protein Vancomycin Trough Miscellaneous Test Crossmatch 06/18/18 06/18/18 06/18/18 04:04 04:04 14:15 WBC RBC 3.00 L Hgb 8.9 L Hct 26.5 L MCV MCHC RDW 17.8 H Plt Count 494 H Lymph % (Auto) 7.9 L [place] % (Auto) 9.3 H Lymph # 0.8 L [place] # 1.0 H Seg Neutrophils % 81.2 H Seg Neuts % (Manual) Lymphocytes % (Manual) Monocytes % (Manual) Seg Neutrophils # 8.6 H Seg Neutrophils # Man Lymphocytes # (Manual) Monocytes # (Manual) PT INR APTT Heparin Anti-Xa Level POC ABG pH POC ABG pCO2 POC ABG pO2 Sodium 128 L Potassium Chloride Carbon Dioxide 18 L BUN 88 H Creatinine 3.1 H Glucose 129 H POC Glucose 143 H Lactic Acid Calcium 7.8 L Phosphorus 6.20 H Magnesium Iron TIBC AST ALT Alkaline Phosphatase Lactate Dehydrogenase Total Creatine Kinase C-Reactive Protein Total Protein Albumin Prealbumin CA 19-9 Antigen Folate PTH Intact Urine WBC (Auto) Urine Creatinine Urine Chloride Urine Total Protein Fluid Glucose Fluid Total Protein Vancomycin Trough Miscellaneous Test Crossmatch 06/18/18 06/19/18 06/19/18 17:54 01:45 06:20 WBC RBC Hgb Hct MCV MCHC RDW Plt Count Lymph % (Auto) [place] % (Auto) Lymph # [place] # Seg Neutrophils % Seg Neuts % (Manual) Lymphocytes % (Manual) Monocytes % (Manual) Seg Neutrophils # Seg Neutrophils # Man Lymphocytes # (Manual) Monocytes # (Manual) PT INR APTT Heparin Anti-Xa Level POC ABG pH POC ABG pCO2 POC ABG pO2 Sodium Potassium Chloride 93.9 L Carbon Dioxide BUN 78 H Creatinine 2.8 H Glucose POC Glucose 138 H 141 H Lactic Acid Calcium 7.1 L Phosphorus 6.40 H Magnesium Iron TIBC AST ALT Alkaline Phosphatase Lactate Dehydrogenase Total Creatine Kinase C-Reactive Protein Total Protein Albumin Prealbumin CA 19-9 Antigen Folate PTH Intact Urine WBC (Auto) Urine Creatinine Urine Chloride Urine Total Protein Fluid Glucose Fluid Total Protein Vancomycin Trough Miscellaneous Test Crossmatch 06/19/18 06/19/18 06/19/18 06:49 07:59 16:32 WBC RBC Hgb Hct MCV MCHC RDW Plt Count Lymph % (Auto) [place] % (Auto) Lymph # [place] # Seg Neutrophils % Seg Neuts % (Manual) Lymphocytes % (Manual) Monocytes % (Manual) Seg Neutrophils # Seg Neutrophils # Man Lymphocytes # (Manual) Monocytes # (Manual) PT INR APTT Heparin Anti-Xa Level POC ABG pH POC ABG pCO2 POC ABG pO2 Sodium Potassium Chloride Carbon Dioxide BUN 80 H Creatinine 2.9 H Glucose 123 H POC Glucose 130 H 134 H Lactic Acid Calcium 7.7 L Phosphorus Magnesium Iron TIBC AST ALT Alkaline Phosphatase Lactate Dehydrogenase Total Creatine Kinase C-Reactive Protein Total Protein Albumin Prealbumin CA 19-9 Antigen Folate PTH Intact Urine WBC (Auto) Urine Creatinine Urine Chloride Urine Total Protein Fluid Glucose Fluid Total Protein Vancomycin Trough Miscellaneous Test Crossmatch 06/20/18 06/20/18 06/20/18 00:11 05:55 05:55 WBC RBC 2.73 L Hgb 8.0 L Hct 24.2 L MCV MCHC RDW 17.4 H Plt Count 512 H Lymph % (Auto) 12.3 L [place] % (Auto) 11.3 H Lymph # 1.1 L [place] # 1.0 H Seg Neutrophils % 74.8 H Seg Neuts % (Manual) Lymphocytes % (Manual) Monocytes % (Manual) Seg Neutrophils # Seg Neutrophils # Man Lymphocytes # (Manual) Monocytes # (Manual) PT INR APTT Heparin Anti-Xa Level POC ABG pH POC ABG pCO2 POC ABG pO2 Sodium Potassium Chloride Carbon Dioxide 32 H BUN 70 H Creatinine 2.5 H Glucose 105 H POC Glucose 131 H Lactic Acid Calcium 8.0 L Phosphorus Magnesium Iron TIBC AST ALT Alkaline Phosphatase Lactate Dehydrogenase Total Creatine Kinase C-Reactive Protein Total Protein Albumin Prealbumin CA 19-9 Antigen Folate PTH Intact Urine WBC (Auto) Urine Creatinine Urine Chloride Urine Total Protein Fluid Glucose Fluid Total Protein Vancomycin Trough Miscellaneous Test Crossmatch 06/20/18 06/20/18 06/20/18 05:55 12:10 16:01 WBC RBC Hgb Hct MCV MCHC RDW Plt Count Lymph % (Auto) [place] % (Auto) Lymph # [place] # Seg Neutrophils % Seg Neuts % (Manual) Lymphocytes % (Manual) Monocytes % (Manual) Seg Neutrophils # Seg Neutrophils # Man Lymphocytes # (Manual) Monocytes # (Manual) PT INR APTT Heparin Anti-Xa Level POC ABG pH POC ABG pCO2 POC ABG pO2 Sodium Potassium Chloride Carbon Dioxide BUN Creatinine Glucose POC Glucose 112 H 127 H 145 H Lactic Acid Calcium Phosphorus Magnesium Iron TIBC AST ALT Alkaline Phosphatase Lactate Dehydrogenase Total Creatine Kinase C-Reactive Protein Total Protein Albumin Prealbumin CA 19-9 Antigen Folate PTH Intact Urine WBC (Auto) Urine Creatinine Urine Chloride Urine Total Protein Fluid Glucose Fluid Total Protein Vancomycin Trough Miscellaneous Test Crossmatch 06/20/18 06/21/18 06/21/18 23:54 05:50 05:50 WBC RBC 2.57 L Hgb 7.7 L Hct 26.6 L MCV 104 H MCHC 29 L RDW 19.1 H Plt Count 521 H Lymph % (Auto) 10.0 L [place] % (Auto) 7.4 H Lymph # 1.0 L [place] # Seg Neutrophils % 81.3 H Seg Neuts % (Manual) Lymphocytes % (Manual) Monocytes % (Manual) Seg Neutrophils # 7.9 H Seg Neutrophils # Man Lymphocytes # (Manual) Monocytes # (Manual) PT INR APTT Heparin Anti-Xa Level POC ABG pH POC ABG pCO2 POC ABG pO2 Sodium Potassium 5.8 H D Chloride 90.3 L Carbon Dioxide 37 H BUN 57 H Creatinine 1.9 H Glucose POC Glucose 154 H Lactic Acid Calcium 7.3 L Phosphorus Magnesium Iron TIBC AST 50 H ALT Alkaline Phosphatase 190 H Lactate Dehydrogenase Total Creatine Kinase C-Reactive Protein Total Protein Albumin 1.8 L Prealbumin CA 19-9 Antigen Folate PTH Intact Urine WBC (Auto) Urine Creatinine Urine Chloride Urine Total Protein Fluid Glucose Fluid Total Protein Vancomycin Trough Miscellaneous Test Crossmatch 06/21/18 06/21/18 06/21/18 06:57 13:37 17:00 WBC RBC Hgb Hct MCV MCHC RDW Plt Count Lymph % (Auto) [place] % (Auto) Lymph # [place] # Seg Neutrophils % Seg Neuts % (Manual) Lymphocytes % (Manual) Monocytes % (Manual) Seg Neutrophils # Seg Neutrophils # Man Lymphocytes # (Manual) Monocytes # (Manual) PT INR APTT Heparin Anti-Xa Level POC ABG pH POC ABG pCO2 POC ABG pO2 Sodium Potassium Chloride Carbon Dioxide BUN Creatinine Glucose 111 H POC Glucose 141 H 148 H Lactic Acid Calcium Phosphorus Magnesium Iron TIBC AST ALT Alkaline Phosphatase Lactate Dehydrogenase Total Creatine Kinase C-Reactive Protein Total Protein Albumin Prealbumin CA 19-9 Antigen Folate PTH Intact Urine WBC (Auto) Urine Creatinine Urine Chloride Urine Total Protein Fluid Glucose Fluid Total Protein Vancomycin Trough Miscellaneous Test Crossmatch 06/21/18 06/21/18 06/22/18 17:27 22:01 06:02 WBC RBC Hgb Hct MCV MCHC RDW Plt Count Lymph % (Auto) [place] % (Auto) Lymph # [place] # Seg Neutrophils % Seg Neuts % (Manual) Lymphocytes % (Manual) Monocytes % (Manual) Seg Neutrophils # Seg Neutrophils # Man Lymphocytes # (Manual) Monocytes # (Manual) PT INR APTT Heparin Anti-Xa Level POC ABG pH POC ABG pCO2 POC ABG pO2 Sodium Potassium 3.2 L Chloride Carbon Dioxide 39 H BUN 53 H Creatinine 1.9 H Glucose 1348 H* POC Glucose 130 H 122 H Lactic Acid Calcium 7.5 L Phosphorus Magnesium Iron TIBC AST ALT Alkaline Phosphatase Lactate Dehydrogenase Total Creatine Kinase C-Reactive Protein Total Protein Albumin Prealbumin CA 19-9 Antigen Folate PTH Intact Urine WBC (Auto) Urine Creatinine Urine Chloride Urine Total Protein Fluid Glucose Fluid Total Protein Vancomycin Trough Miscellaneous Test Crossmatch 06/22/18 06/22/18 06/22/18 06:16 07:26 07:48 WBC RBC Hgb Hct MCV MCHC RDW Plt Count Lymph % (Auto) [place] % (Auto) Lymph # [place] # Seg Neutrophils % Seg Neuts % (Manual) Lymphocytes % (Manual) Monocytes % (Manual) Seg Neutrophils # Seg Neutrophils # Man Lymphocytes # (Manual) Monocytes # (Manual) PT INR APTT Heparin Anti-Xa Level POC ABG pH POC ABG pCO2 POC ABG pO2 Sodium Potassium Chloride Carbon Dioxide 37 H BUN 57 H Creatinine 1.9 H Glucose 147 H POC Glucose 148 H 153 H Lactic Acid Calcium 8.3 L Phosphorus Magnesium Iron TIBC AST ALT Alkaline Phosphatase Lactate Dehydrogenase Total Creatine Kinase C-Reactive Protein Total Protein Albumin Prealbumin CA 19-9 Antigen Folate PTH Intact Urine WBC (Auto) Urine Creatinine Urine Chloride Urine Total Protein Fluid Glucose Fluid Total Protein Vancomycin Trough Miscellaneous Test Crossmatch 06/22/18 06/22/18 06/22/18 11:26 16:26 23:57 WBC RBC Hgb Hct MCV MCHC RDW Plt Count Lymph % (Auto) [place] % (Auto) Lymph # [place] # Seg Neutrophils % Seg Neuts % (Manual) Lymphocytes % (Manual) Monocytes % (Manual) Seg Neutrophils # Seg Neutrophils # Man Lymphocytes # (Manual) Monocytes # (Manual) PT INR APTT Heparin Anti-Xa Level POC ABG pH POC ABG pCO2 POC ABG pO2 Sodium Potassium Chloride Carbon Dioxide BUN Creatinine Glucose POC Glucose 121 H 122 H 180 H Lactic Acid Calcium Phosphorus Magnesium Iron TIBC AST ALT Alkaline Phosphatase Lactate Dehydrogenase Total Creatine Kinase C-Reactive Protein Total Protein Albumin Prealbumin CA 19-9 Antigen Folate PTH Intact Urine WBC (Auto) Urine Creatinine Urine Chloride Urine Total Protein Fluid Glucose Fluid Total Protein Vancomycin Trough Miscellaneous Test Crossmatch 06/22/18 06/23/18 06/23/18 23:57 00:30 01:40 WBC RBC Hgb Hct MCV MCHC RDW Plt Count Lymph % (Auto) [place] % (Auto) Lymph # [place] # Seg Neutrophils % Seg Neuts % (Manual) Lymphocytes % (Manual) Monocytes % (Manual) Seg Neutrophils # Seg Neutrophils # Man Lymphocytes # (Manual) Monocytes # (Manual) PT INR APTT Heparin Anti-Xa Level POC ABG pH 7.195 L 7.235 L POC ABG pCO2 105.2 H 95.7 H POC ABG pO2 Sodium Potassium Chloride Carbon Dioxide BUN Creatinine Glucose POC Glucose Lactic Acid Calcium Phosphorus Magnesium Iron TIBC AST ALT Alkaline Phosphatase Lactate Dehydrogenase Total Creatine Kinase C-Reactive Protein Total Protein Albumin Prealbumin CA 19-9 Antigen Folate PTH Intact Urine WBC (Auto) Urine Creatinine 99.7 H Urine Chloride 10.0 L Urine Total Protein 272 H Fluid Glucose Fluid Total Protein Vancomycin Trough Miscellaneous Test Crossmatch 06/23/18 06/23/18 06/23/18 05:58 07:20 08:31 WBC 16.0 H RBC 2.35 L Hgb 6.7 L Hct 22.3 L MCV 95 H MCHC 30 L RDW 18.5 H Plt Count 512 H Lymph % (Auto) [place] % (Auto) Lymph # [place] # Seg Neutrophils % Seg Neuts % (Manual) Lymphocytes % (Manual) Monocytes % (Manual) Seg Neutrophils # Seg Neutrophils # Man Lymphocytes # (Manual) Monocytes # (Manual) PT INR APTT Heparin Anti-Xa Level POC ABG pH POC ABG pCO2 POC ABG pO2 Sodium Potassium Chloride Carbon Dioxide BUN Creatinine Glucose POC Glucose 116 H 123 H Lactic Acid Calcium Phosphorus Magnesium Iron TIBC AST ALT Alkaline Phosphatase Lactate Dehydrogenase Total Creatine Kinase C-Reactive Protein Total Protein Albumin Prealbumin CA 19-9 Antigen Folate PTH Intact Urine WBC (Auto) Urine Creatinine Urine Chloride Urine Total Protein Fluid Glucose Fluid Total Protein Vancomycin Trough Miscellaneous Test Crossmatch 06/23/18 06/23/18 06/23/18 08:31 08:34 08:34 WBC RBC Hgb Hct MCV MCHC RDW Plt Count 485 H Lymph % (Auto) [place] % (Auto) Lymph # [place] # Seg Neutrophils % Seg Neuts % (Manual) Lymphocytes % (Manual) Monocytes % (Manual) Seg Neutrophils # Seg Neutrophils # Man Lymphocytes # (Manual) Monocytes # (Manual) PT 15.2 H INR 1.15 H APTT 41.9 H Heparin Anti-Xa Level POC ABG pH POC ABG pCO2 POC ABG pO2 Sodium 148 H Potassium Chloride Carbon Dioxide BUN 59 H Creatinine 2.2 H Glucose 106 H POC Glucose Lactic Acid Calcium 8.2 L Phosphorus 6.60 H Magnesium Iron TIBC AST 46 H ALT Alkaline Phosphatase 188 H Lactate Dehydrogenase Total Creatine Kinase C-Reactive Protein Total Protein Albumin 1.6 L Prealbumin CA 19-9 Antigen Folate PTH Intact Urine WBC (Auto) Urine Creatinine Urine Chloride Urine Total Protein Fluid Glucose Fluid Total Protein Vancomycin Trough Miscellaneous Test Crossmatch 06/23/18 06/23/18 06/23/18 09:29 09:40 09:43 WBC RBC Hgb Hct MCV MCHC RDW Plt Count Lymph % (Auto) [place] % (Auto) Lymph # [place] # Seg Neutrophils % Seg Neuts % (Manual) Lymphocytes % (Manual) Monocytes % (Manual) Seg Neutrophils # Seg Neutrophils # Man Lymphocytes # (Manual) Monocytes # (Manual) PT INR APTT Heparin Anti-Xa Level POC ABG pH 7.521 H POC ABG pCO2 53.6 H 48.4 H POC ABG pO2 37 L 181 H Sodium Potassium Chloride Carbon Dioxide BUN Creatinine Glucose POC Glucose Lactic Acid Calcium Phosphorus Magnesium Iron TIBC AST ALT Alkaline Phosphatase Lactate Dehydrogenase Total Creatine Kinase C-Reactive Protein Total Protein Albumin Prealbumin CA 19-9 Antigen Folate PTH Intact Urine WBC (Auto) Urine Creatinine Urine Chloride Urine Total Protein Fluid Glucose Fluid Total Protein Vancomycin Trough Miscellaneous Test Crossmatch See Detail 06/23/18 06/23/18 06/23/18 17:03 17:03 18:33 WBC 22.2 H RBC 2.85 L Hgb 8.4 L Hct 25.6 L MCV MCHC RDW 17.6 H Plt Count 515 H Lymph % (Auto) [place] % (Auto) Lymph # [place] # Seg Neutrophils % Seg Neuts % (Manual) Lymphocytes % (Manual) Monocytes % (Manual) Seg Neutrophils # Seg Neutrophils # Man Lymphocytes # (Manual) Monocytes # (Manual) PT INR APTT Heparin Anti-Xa Level 0.13 L POC ABG pH POC ABG pCO2 POC ABG pO2 Sodium Potassium Chloride Carbon Dioxide BUN Creatinine Glucose POC Glucose < 40 L Lactic Acid Calcium Phosphorus Magnesium Iron TIBC AST ALT Alkaline Phosphatase Lactate Dehydrogenase Total Creatine Kinase C-Reactive Protein Total Protein Albumin Prealbumin CA 19-9 Antigen Folate PTH Intact Urine WBC (Auto) Urine Creatinine Urine Chloride Urine Total Protein Fluid Glucose Fluid Total Protein Vancomycin Trough Miscellaneous Test Crossmatch 06/23/18 06/23/18 06/24/18 23:53 Unknown 00:30 WBC RBC Hgb Hct MCV MCHC RDW Plt Count Lymph % (Auto) [place] % (Auto) Lymph # [place] # Seg Neutrophils % Seg Neuts % (Manual) Lymphocytes % (Manual) Monocytes % (Manual) Seg Neutrophils # Seg Neutrophils # Man Lymphocytes # (Manual) Monocytes # (Manual) PT INR APTT Heparin Anti-Xa Level POC ABG pH POC ABG pCO2 POC ABG pO2 Sodium 148 H Potassium Chloride Carbon Dioxide 36 H BUN 57 H Creatinine 1.9 H Glucose POC Glucose 140 H Lactic Acid Calcium 8.3 L Phosphorus Magnesium Iron TIBC AST ALT Alkaline Phosphatase Lactate Dehydrogenase Total Creatine Kinase C-Reactive Protein Total Protein Albumin Prealbumin CA 19-9 Antigen Folate PTH Intact Urine WBC (Auto) 8.0 H Urine Creatinine Urine Chloride Urine Total Protein Fluid Glucose Fluid Total Protein Vancomycin Trough Miscellaneous Test Crossmatch 06/24/18 06/24/18 06/24/18 00:40 04:30 04:30 WBC 26.9 H RBC 2.79 L Hgb 8.1 L Hct 25.0 L MCV MCHC RDW 17.5 H Plt Count 487 H Lymph % (Auto) [place] % (Auto) Lymph # [place] # Seg Neutrophils % Seg Neuts % (Manual) Lymphocytes % (Manual) 6.0 L Monocytes % (Manual) 8.0 H Seg Neutrophils # Seg Neutrophils # Man 16.9 H Lymphocytes # (Manual) Monocytes # (Manual) 2.2 H PT INR APTT Heparin Anti-Xa Level 0.13 L POC ABG pH POC ABG pCO2 POC ABG pO2 Sodium 151 H Potassium Chloride Carbon Dioxide 36 H D BUN 74 H Creatinine 2.9 H Glucose 126 H POC Glucose Lactic Acid Calcium 8.2 L Phosphorus Magnesium Iron TIBC AST ALT Alkaline Phosphatase Lactate Dehydrogenase Total Creatine Kinase C-Reactive Protein Total Protein Albumin Prealbumin CA 19-9 Antigen Folate PTH Intact Urine WBC (Auto) Urine Creatinine Urine Chloride Urine Total Protein Fluid Glucose Fluid Total Protein Vancomycin Trough Miscellaneous Test Crossmatch 06/24/18 06/24/18 06/24/18 04:33 06:41 08:00 WBC RBC Hgb Hct MCV MCHC RDW Plt Count Lymph % (Auto) [place] % (Auto) Lymph # [place] # Seg Neutrophils % Seg Neuts % (Manual) Lymphocytes % (Manual) Monocytes % (Manual) Seg Neutrophils # Seg Neutrophils # Man Lymphocytes # (Manual) Monocytes # (Manual) PT INR APTT Heparin Anti-Xa Level 0.21 L POC ABG pH 7.517 H POC ABG pCO2 50.9 H POC ABG pO2 170 H Sodium Potassium Chloride Carbon Dioxide BUN Creatinine Glucose POC Glucose 140 H Lactic Acid Calcium Phosphorus Magnesium Iron TIBC AST ALT Alkaline Phosphatase Lactate Dehydrogenase Total Creatine Kinase C-Reactive Protein Total Protein Albumin Prealbumin CA 19-9 Antigen Folate PTH Intact Urine WBC (Auto) Urine Creatinine Urine Chloride Urine Total Protein Fluid Glucose Fluid Total Protein Vancomycin Trough Miscellaneous Test Crossmatch 06/24/18 06/24/18 06/24/18 12:27 14:20 23:43 WBC RBC Hgb Hct MCV MCHC RDW Plt Count Lymph % (Auto) [place] % (Auto) Lymph # [place] # Seg Neutrophils % Seg Neuts % (Manual) Lymphocytes % (Manual) Monocytes % (Manual) Seg Neutrophils # Seg Neutrophils # Man Lymphocytes # (Manual) Monocytes # (Manual) PT INR APTT Heparin Anti-Xa Level 0.28 L POC ABG pH POC ABG pCO2 POC ABG pO2 Sodium Potassium Chloride Carbon Dioxide BUN Creatinine Glucose POC Glucose 216 H 217 H Lactic Acid Calcium Phosphorus Magnesium Iron TIBC AST ALT Alkaline Phosphatase Lactate Dehydrogenase Total Creatine Kinase C-Reactive Protein Total Protein Albumin Prealbumin CA 19-9 Antigen Folate PTH Intact Urine WBC (Auto) Urine Creatinine Urine Chloride Urine Total Protein Fluid Glucose Fluid Total Protein Vancomycin Trough Miscellaneous Test Crossmatch 06/25/18 06/25/18 06/25/18 04:29 04:37 04:37 WBC RBC Hgb 8.1 L Hct 25.6 L MCV MCHC RDW Plt Count Lymph % (Auto) [place] % (Auto) Lymph # [place] # Seg Neutrophils % Seg Neuts % (Manual) Lymphocytes % (Manual) Monocytes % (Manual) Seg Neutrophils # Seg Neutrophils # Man Lymphocytes # (Manual) Monocytes # (Manual) PT INR APTT Heparin Anti-Xa Level POC ABG pH 7.534 H POC ABG pCO2 POC ABG pO2 161 H Sodium Potassium 2.6 L* D Chloride Carbon Dioxide 32 H BUN 75 H Creatinine 3.1 H Glucose 244 H POC Glucose Lactic Acid Calcium Phosphorus Magnesium Iron TIBC AST ALT Alkaline Phosphatase Lactate Dehydrogenase Total Creatine Kinase C-Reactive Protein Total Protein Albumin Prealbumin CA 19-9 Antigen Folate PTH Intact Urine WBC (Auto) Urine Creatinine Urine Chloride Urine Total Protein Fluid Glucose Fluid Total Protein Vancomycin Trough Miscellaneous Test Crossmatch 06/25/18 05:48 WBC RBC Hgb Hct MCV MCHC RDW Plt Count Lymph % (Auto) [place] % (Auto) Lymph # [place] # Seg Neutrophils % Seg Neuts % (Manual) Lymphocytes % (Manual) Monocytes % (Manual) Seg Neutrophils # Seg Neutrophils # Man Lymphocytes # (Manual) Monocytes # (Manual) PT INR APTT Heparin Anti-Xa Level POC ABG pH POC ABG pCO2 POC ABG pO2 Sodium Potassium Chloride Carbon Dioxide BUN Creatinine Glucose POC Glucose 225 H Lactic Acid Calcium Phosphorus Magnesium Iron TIBC AST ALT Alkaline Phosphatase Lactate Dehydrogenase Total Creatine Kinase C-Reactive Protein Total Protein Albumin Prealbumin CA 19-9 Antigen Folate PTH Intact Urine WBC (Auto) Urine Creatinine Urine Chloride Urine Total Protein Fluid Glucose Fluid Total Protein Vancomycin Trough Miscellaneous Test Crossmatch
--- NOTE | 2018-06-25 12:18 | Progress Note ---
Assessment and Plan Acute hypoxemic respiratory failure Bilateral pneumonia, possibly aspiration. Sepsis syndrome. 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 Acute deep venous thrombosis. Hypertensive urgency. Hyperkalemia, now resolved. Moderate to severe protein calorie malnutrition Hypernatremia. Hypokalemia Hypochloremia. Anemia, normocytic. (ABLA) (Discussed at length with brother; real possibility of brain ; asked family to seriously contemplate palliative care taking overall co-morbidities into consideration - he shanelle discuss with the rest of his siblings as no kids and no parents) - reduce set rate to 20/min re: alkalosis - VAP bundle addressed - complete neurologic w/up - consider NM brain flow scan if no clinical improvement next 24-48 hours - holding anticoagulation due to ABLA - replaced potasium (total 40 meq IV) - continue supplemental oxygen to keep sats > 90% - repeat thoracentesis if clinically improves as may be futile procedure - optimize cardiac function - continue bronchodilators with pulmonary hygiene per RT - continue aspiration precautions - HD/UF for toxin and volume clearance per nephrology prescription (s/p vascath placement) - follow clinically off AB's - continue TPN for now (enteral nutrition once cleared by surgery) - Malignancy per heme-oncologist - continue mobility protocol for pressure ulcer prophylaxis - s/p surgery 05/26 (had ex-lap; matted abdominal organs, pus) - s/p bilateral nephrostomy tubes placed 05/14/[address] Freeman. - continue other care per attending / other consultants - prn paracentesis - continue other care per attending / other consultants .... discharge planning ongoing concurrently ... re-evaluate in am & prn The high probability of a clinically significant, sudden or life threatening deterioration of the [respiratory,cardiac, urologic and renal] system(s) required my full and direct attention, intervention and personal management. The aggregate critical care time was [45] minutes without overlap. Time includes spent on; [x] Data Review and interpretation [x] Patient assessment and monitoring of vital signs [x] Documentation [x] Medication orders and management Subjective Date of service: 06/25/18 Principal diagnosis: Acute Hypoxemic Resp Failure; Sepsis Syndrome; Acute VTE; Prostate Cancer Interval history: Patient is seen today for: Acute Hypoxemic Resp Failure; Sepsis Syndrome; Acute VTE; Prostate Cancer Seen and examined at bedside; 24hour events reviewed; nursing and respiratory care staff consulted; no adverse overnight events reported to me; resting peacefully in bed; obtunded really; pupils fixed; he does make minimal respiratory effort with abou 4 breaths/min; brother in room and neurology evaluation ongoing Objective Vital Signs - 12hr 06/25/18 06/25/18 06/25/18 00:21 00:30 00:46 Temperature Pulse Rate 74 70 70 Pulse Rate [ From Monitor] Respiratory 24 24 Rate Blood Pressure 137/100 143/101 117/86 O2 Sat by Pulse 100 100 Oximetry 06/25/18 06/25/18 06/25/18 01:00 01:15 01:30 Temperature Pulse Rate 69 69 68 Pulse Rate [ From Monitor] Respiratory 24 24 24 Rate Blood Pressure 117/86 128/94 127/93 O2 Sat by Pulse 100 100 100 Oximetry 06/25/18 06/25/18 06/25/18 01:45 02:00 02:15 Temperature Pulse Rate 67 67 67 Pulse Rate [ From Monitor] Respiratory 24 24 24 Rate Blood Pressure 131/97 126/94 131/96 O2 Sat by Pulse 100 100 100 Oximetry 06/25/18 06/25/18 06/25/18 02:30 02:45 03:00 Temperature Pulse Rate 66 66 66 Pulse Rate [ From Monitor] Respiratory 24 24 24 Rate Blood Pressure 124/94 127/94 129/95 O2 Sat by Pulse 100 100 100 Oximetry 06/25/18 06/25/18 06/25/18 03:15 03:17 03:30 Temperature 97.2 F L Pulse Rate 65 65 Pulse Rate [ From Monitor] Respiratory 24 24 Rate Blood Pressure 121/92 125/92 O2 Sat by Pulse 100 100 Oximetry 06/25/18 06/25/18 06/25/18 03:45 04:00 04:15 Temperature Pulse Rate 64 64 64 Pulse Rate [ 58 L From Monitor] Respiratory 24 24 24 Rate Blood Pressure 115/86 127/94 119/90 O2 Sat by Pulse 100 100 100 Oximetry 06/25/18 06/25/18 06/25/18 04:30 04:46 05:00 Temperature Pulse Rate 63 66 62 Pulse Rate [ From Monitor] Respiratory 24 24 24 Rate Blood Pressure 111/83 168/109 120/89 O2 Sat by Pulse 100 Oximetry 06/25/18 06/25/18 06/25/18 05:15 05:30 05:42 Temperature Pulse Rate 62 67 62 Pulse Rate [ From Monitor] Respiratory 24 13 Rate Blood Pressure 141/98 157/105 157/105 O2 Sat by Pulse Oximetry 06/25/18 06/25/18 06/25/18 05:46 06:00 06:15 Temperature Pulse Rate 62 61 60 Pulse Rate [ From Monitor] Respiratory 24 24 24 Rate Blood Pressure 115/86 108/83 103/79 O2 Sat by Pulse 100 100 100 Oximetry 06/25/18 06/25/18 06:30 08:28 Temperature Pulse Rate 59 L 55 L Pulse Rate [ From Monitor] Respiratory 24 Rate Blood Pressure 118/88 115/88 O2 Sat by Pulse 100 100 Oximetry Constitutional: no acute distress, alert, other (chronically ill looking middle aged AAM, normocephalic and atraumatic, ) Eyes: non-icteric ENT: oropharynx moist, other (ETT 23 cm BEATRIS) Neck: supple, no lymphadenopathy, no JVD, other (no thyromegaly) Effort: normal (riding set ventilator rate) Ascultation: Bilateral: diminished breath sounds (bases), rhonchi (scant in bases) Percussion: Bilateral: dull (bases) Cardiovascular: regular rate and rhythm, other (No R/M) Gastrointestinal: hypoactive bowel sounds, soft, tender (mild), other (Distended ; No palpable HSM, bilateral nephrostomy tubes,Colostomy, ZAKI drain) Integumentary: other (femoral vascath) Extremities: no cyanosis, no edema, pulses normal, no ischemia or petechiae Neurologic: other (obtunded) Psychiatric: other (Obtunded) CBC and BMP: 06/25/18 04:37 06/25/18 04:37 ABG, PT/INR, D-dimer: ABG POC ABG pH 7.534 (7.35-7.45) H 06/25/18 04:29 POC ABG pCO2 42.2 (35-45) 06/25/18 04:29 POC ABG pO2 161 (80-105) H 06/25/18 04:29 POC ABG HCO3 35.5 06/25/18 04:29 POC ABG Total CO2 37 06/25/18 04:29 POC ABG O2 Sat 100 06/25/18 04:29 PT/INR, D-dimer PT 15.2 Sec. (12.2-14.9) H 06/23/18 08:34 INR 1.15 (0.87-1.13) H 06/23/18 08:34 Abnormal lab findings: Abnormal Labs 05/13/18 05/13/18 05/13/18 04:27 04:27 19:39 WBC RBC 3.13 L Hgb 9.4 L Hct 26.8 L MCV MCHC 35 H RDW Plt Count Lymph % (Auto) [place] % (Auto) 9.6 H Lymph # [place] # Seg Neutrophils % Seg Neuts % (Manual) Lymphocytes % (Manual) Monocytes % (Manual) Seg Neutrophils # Seg Neutrophils # Man Lymphocytes # (Manual) Monocytes # (Manual) PT INR APTT Heparin Anti-Xa Level POC ABG pH POC ABG pCO2 POC ABG pO2 Sodium 132 L Potassium 5.5 H Chloride 94.1 L Carbon Dioxide 19 L BUN 72 H Creatinine 14.4 H Glucose POC Glucose Lactic Acid Calcium Phosphorus Magnesium Iron TIBC AST ALT Alkaline Phosphatase Lactate Dehydrogenase Total Creatine Kinase C-Reactive Protein Total Protein Albumin 2.8 L Prealbumin CA 19-9 Antigen Folate PTH Intact Urine WBC (Auto) Urine Creatinine 66.0 H Urine Chloride 27.8 L Urine Total Protein 24 H Fluid Glucose Fluid Total Protein Vancomycin Trough Miscellaneous Test Crossmatch 05/13/18 05/14/18 05/14/18 20:00 05:05 05:05 WBC RBC Hgb Hct MCV MCHC RDW Plt Count Lymph % (Auto) [place] % (Auto) Lymph # [place] # Seg Neutrophils % Seg Neuts % (Manual) Lymphocytes % (Manual) Monocytes % (Manual) Seg Neutrophils # Seg Neutrophils # Man Lymphocytes # (Manual) Monocytes # (Manual) PT INR APTT Heparin Anti-Xa Level POC ABG pH POC ABG pCO2 POC ABG pO2 Sodium 132 L 131 L Potassium 5.2 H 5.8 H Chloride 93.0 L 95.6 L Carbon Dioxide 19 L 20 L BUN 74 H 81 H Creatinine 15.0 H 16.6 H Glucose 134 H 127 H POC Glucose Lactic Acid Calcium 8.2 L 7.9 L Phosphorus 6.30 H Magnesium Iron TIBC AST ALT Alkaline Phosphatase Lactate Dehydrogenase Total Creatine Kinase 236 H C-Reactive Protein Total Protein Albumin Prealbumin CA 19-9 Antigen Folate PTH Intact 65.37 H Urine WBC (Auto) Urine Creatinine Urine Chloride Urine Total Protein Fluid Glucose Fluid Total Protein Vancomycin Trough Miscellaneous Test Crossmatch 05/14/18 05/14/18 05/14/18 09:28 10:56 13:29 WBC RBC Hgb Hct MCV MCHC RDW Plt Count Lymph % (Auto) [place] % (Auto) Lymph # [place] # Seg Neutrophils % Seg Neuts % (Manual) Lymphocytes % (Manual) Monocytes % (Manual) Seg Neutrophils # Seg Neutrophils # Man Lymphocytes # (Manual) Monocytes # (Manual) PT INR APTT 38.2 H Heparin Anti-Xa Level POC ABG pH POC ABG pCO2 POC ABG pO2 Sodium Potassium Chloride Carbon Dioxide BUN Creatinine Glucose POC Glucose 127 H 126 H Lactic Acid Calcium Phosphorus Magnesium Iron TIBC AST ALT Alkaline Phosphatase Lactate Dehydrogenase Total Creatine Kinase C-Reactive Protein Total Protein Albumin Prealbumin CA 19-9 Antigen Folate PTH Intact Urine WBC (Auto) Urine Creatinine Urine Chloride Urine Total Protein Fluid Glucose Fluid Total Protein Vancomycin Trough Miscellaneous Test Crossmatch 05/15/18 05/15/18 05/16/18 08:06 08:06 07:02 WBC RBC 2.84 L 2.74 L Hgb 8.5 L 8.5 L Hct 24.2 L 23.5 L MCV MCHC 35 H 36 H RDW Plt Count Lymph % (Auto) [place] % (Auto) 10.4 H 11.0 H Lymph # 1.1 L [place] # 0.9 H Seg Neutrophils % 72.6 H Seg Neuts % (Manual) Lymphocytes % (Manual) Monocytes % (Manual) Seg Neutrophils # Seg Neutrophils # Man Lymphocytes # (Manual) Monocytes # (Manual) PT INR APTT Heparin Anti-Xa Level POC ABG pH POC ABG pCO2 POC ABG pO2 Sodium Potassium Chloride Carbon Dioxide 19 L BUN 66 H Creatinine 12.0 H Glucose 115 H POC Glucose Lactic Acid Calcium 8.1 L Phosphorus Magnesium Iron TIBC AST ALT Alkaline Phosphatase Lactate Dehydrogenase Total Creatine Kinase C-Reactive Protein Total Protein Albumin Prealbumin CA 19-9 Antigen Folate PTH Intact Urine WBC (Auto) Urine Creatinine Urine Chloride Urine Total Protein Fluid Glucose Fluid Total Protein Vancomycin Trough Miscellaneous Test Crossmatch 05/16/18 05/16/18 05/17/18 07:02 07:02 05:08 WBC RBC 2.78 L Hgb 8.2 L Hct 23.9 L MCV MCHC RDW Plt Count Lymph % (Auto) [place] % (Auto) 13.9 H Lymph # [place] # 0.9 H Seg Neutrophils % Seg Neuts % (Manual) Lymphocytes % (Manual) Monocytes % (Manual) Seg Neutrophils # Seg Neutrophils # Man Lymphocytes # (Manual) Monocytes # (Manual) PT INR APTT Heparin Anti-Xa Level POC ABG pH POC ABG pCO2 POC ABG pO2 Sodium Potassium Chloride Carbon Dioxide BUN 28 H Creatinine 2.4 H D Glucose POC Glucose Lactic Acid Calcium 8.3 L Phosphorus Magnesium 1.50 L Iron 24 L TIBC 160 L AST ALT Alkaline Phosphatase Lactate Dehydrogenase Total Creatine Kinase C-Reactive Protein Total Protein Albumin Prealbumin CA 19-9 Antigen Folate 5.39 L PTH Intact Urine WBC (Auto) Urine Creatinine Urine Chloride Urine Total Protein Fluid Glucose Fluid Total Protein Vancomycin Trough Miscellaneous Test Crossmatch 05/17/18 05/18/18 05/18/18 05:08 05:57 05:57 WBC RBC 2.79 L Hgb 8.3 L Hct 24.0 L MCV MCHC 35 H RDW Plt Count Lymph % (Auto) [place] % (Auto) 11.8 H Lymph # [place] # 0.9 H Seg Neutrophils % Seg Neuts % (Manual) Lymphocytes % (Manual) Monocytes % (Manual) Seg Neutrophils # Seg Neutrophils # Man Lymphocytes # (Manual) Monocytes # (Manual) PT INR APTT Heparin Anti-Xa Level POC ABG pH POC ABG pCO2 POC ABG pO2 Sodium Potassium Chloride Carbon Dioxide BUN Creatinine Glucose POC Glucose Lactic Acid Calcium 7.7 L 8.0 L Phosphorus Magnesium 1.60 L Iron TIBC AST ALT Alkaline Phosphatase Lactate Dehydrogenase Total Creatine Kinase C-Reactive Protein Total Protein Albumin Prealbumin CA 19-9 Antigen Folate PTH Intact Urine WBC (Auto) Urine Creatinine Urine Chloride Urine Total Protein Fluid Glucose Fluid Total Protein Vancomycin Trough Miscellaneous Test Crossmatch 05/19/18 05/19/18 05/20/18 05:33 05:33 05:38 WBC RBC 2.95 L Hgb 8.8 L Hct 25.8 L MCV MCHC RDW Plt Count Lymph % (Auto) 10.1 L [place] % (Auto) Lymph # 1.1 L [place] # Seg Neutrophils % 85.2 H Seg Neuts % (Manual) Lymphocytes % (Manual) Monocytes % (Manual) Seg Neutrophils # 9.0 H Seg Neutrophils # Man Lymphocytes # (Manual) Monocytes # (Manual) PT INR APTT Heparin Anti-Xa Level POC ABG pH POC ABG pCO2 POC ABG pO2 Sodium 135 L Potassium Chloride Carbon Dioxide BUN Creatinine Glucose 132 H POC Glucose Lactic Acid Calcium 7.8 L 8.3 L Phosphorus Magnesium 1.40 L Iron TIBC AST ALT Alkaline Phosphatase Lactate Dehydrogenase Total Creatine Kinase C-Reactive Protein Total Protein Albumin Prealbumin CA 19-9 Antigen Folate PTH Intact Urine WBC (Auto) Urine Creatinine Urine Chloride Urine Total Protein Fluid Glucose Fluid Total Protein Vancomycin Trough Miscellaneous Test Crossmatch 05/21/18 05/21/18 05/22/18 04:46 15:30 06:49 WBC 20.0 H RBC 2.70 L Hgb 7.8 L Hct 23.3 L MCV MCHC RDW Plt Count Lymph % (Auto) [place] % (Auto) Lymph # [place] # Seg Neutrophils % Seg Neuts % (Manual) 85.0 H Lymphocytes % (Manual) 4.0 L Monocytes % (Manual) Seg Neutrophils # Seg Neutrophils # Man 17.0 H Lymphocytes # (Manual) 0.8 L Monocytes # (Manual) PT INR APTT Heparin Anti-Xa Level POC ABG pH POC ABG pCO2 POC ABG pO2 Sodium 135 L Potassium 3.5 L Chloride Carbon Dioxide 21 L BUN 22 H Creatinine Glucose POC Glucose Lactic Acid Calcium 8.1 L Phosphorus Magnesium Iron TIBC AST ALT Alkaline Phosphatase Lactate Dehydrogenase Total Creatine Kinase C-Reactive Protein Total Protein Albumin Prealbumin CA 19-9 Antigen Folate PTH Intact Urine WBC (Auto) 28.0 H Urine Creatinine Urine Chloride Urine Total Protein Fluid Glucose Fluid Total Protein Vancomycin Trough Miscellaneous Test Crossmatch 05/22/18 05/22/18 05/23/18 06:49 11:23 09:03 WBC RBC Hgb Hct MCV MCHC RDW Plt Count Lymph % (Auto) [place] % (Auto) Lymph # [place] # Seg Neutrophils % Seg Neuts % (Manual) Lymphocytes % (Manual) Monocytes % (Manual) Seg Neutrophils # Seg Neutrophils # Man Lymphocytes # (Manual) Monocytes # (Manual) PT INR APTT Heparin Anti-Xa Level POC ABG pH POC ABG pCO2 POC ABG pO2 Sodium 134 L Potassium 3.5 L Chloride Carbon Dioxide 21 L BUN 35 H 36 H Creatinine 1.7 H Glucose 107 H POC Glucose Lactic Acid Calcium 7.9 L Phosphorus Magnesium 2.50 H Iron TIBC AST ALT Alkaline Phosphatase Lactate Dehydrogenase Total Creatine Kinase C-Reactive Protein Total Protein Albumin Prealbumin CA 19-9 Antigen Folate PTH Intact Urine WBC (Auto) Urine Creatinine Urine Chloride Urine Total Protein Fluid Glucose Fluid Total Protein Vancomycin Trough Miscellaneous Test Crossmatch See Detail 05/23/18 05/23/18 05/23/18 09:03 09:03 17:34 WBC 26.3 H RBC 3.57 L Hgb 10.4 L Hct 31.1 L D MCV MCHC RDW Plt Count Lymph % (Auto) [place] % (Auto) Lymph # [place] # Seg Neutrophils % Seg Neuts % (Manual) Lymphocytes % (Manual) Monocytes % (Manual) Seg Neutrophils # Seg Neutrophils # Man Lymphocytes # (Manual) Monocytes # (Manual) PT 18.3 H INR 1.43 H APTT 40.0 H Heparin Anti-Xa Level POC ABG pH POC ABG pCO2 POC ABG pO2 Sodium Potassium Chloride Carbon Dioxide BUN Creatinine Glucose POC Glucose 108 H Lactic Acid Calcium Phosphorus Magnesium Iron TIBC AST ALT Alkaline Phosphatase Lactate Dehydrogenase Total Creatine Kinase C-Reactive Protein Total Protein Albumin Prealbumin CA 19-9 Antigen Folate PTH Intact Urine WBC (Auto) Urine Creatinine Urine Chloride Urine Total Protein Fluid Glucose Fluid Total Protein Vancomycin Trough Miscellaneous Test Crossmatch 05/23/18 05/24/18 05/24/18 21:14 04:43 08:04 WBC RBC Hgb Hct MCV MCHC RDW Plt Count Lymph % (Auto) [place] % (Auto) Lymph # [place] # Seg Neutrophils % Seg Neuts % (Manual) Lymphocytes % (Manual) Monocytes % (Manual) Seg Neutrophils # Seg Neutrophils # Man Lymphocytes # (Manual) Monocytes # (Manual) PT INR APTT Heparin Anti-Xa Level POC ABG pH POC ABG pCO2 POC ABG pO2 Sodium 146 H Potassium Chloride 108.6 H Carbon Dioxide BUN 33 H Creatinine Glucose 109 H POC Glucose 110 H 106 H Lactic Acid Calcium 8.3 L Phosphorus Magnesium 2.50 H Iron TIBC AST ALT Alkaline Phosphatase Lactate Dehydrogenase Total Creatine Kinase C-Reactive Protein Total Protein Albumin Prealbumin CA 19-9 Antigen Folate PTH Intact Urine WBC (Auto) Urine Creatinine Urine Chloride Urine Total Protein Fluid Glucose Fluid Total Protein Vancomycin Trough Miscellaneous Test Crossmatch 05/25/18 05/25/18 05/25/18 05:42 05:49 19:50 WBC RBC Hgb Hct MCV MCHC RDW Plt Count Lymph % (Auto) [place] % (Auto) Lymph # [place] # Seg Neutrophils % Seg Neuts % (Manual) Lymphocytes % (Manual) Monocytes % (Manual) Seg Neutrophils # Seg Neutrophils # Man Lymphocytes # (Manual) Monocytes # (Manual) PT INR APTT Heparin Anti-Xa Level POC ABG pH POC ABG pCO2 POC ABG pO2 Sodium 150 H Potassium Chloride 112.5 H Carbon Dioxide BUN 34 H Creatinine Glucose 102 H POC Glucose 107 H Lactic Acid Calcium Phosphorus Magnesium Iron TIBC AST ALT Alkaline Phosphatase Lactate Dehydrogenase Total Creatine Kinase C-Reactive Protein 34.50 H Total Protein Albumin Prealbumin CA 19-9 Antigen Folate PTH Intact Urine WBC (Auto) Urine Creatinine Urine Chloride Urine Total Protein Fluid Glucose Fluid Total Protein Vancomycin Trough Miscellaneous Test Crossmatch 05/25/18 05/25/18 05/25/18 19:50 21:05 22:46 WBC RBC Hgb Hct MCV MCHC RDW Plt Count Lymph % (Auto) [place] % (Auto) Lymph # [place] # Seg Neutrophils % Seg Neuts % (Manual) Lymphocytes % (Manual) Monocytes % (Manual) Seg Neutrophils # Seg Neutrophils # Man Lymphocytes # (Manual) Monocytes # (Manual) PT INR APTT Heparin Anti-Xa Level POC ABG pH 7.483 H POC ABG pCO2 24.0 L POC ABG pO2 72 L Sodium Potassium Chloride Carbon Dioxide BUN Creatinine Glucose POC Glucose Lactic Acid 5.90 H* Calcium Phosphorus Magnesium Iron TIBC AST ALT Alkaline Phosphatase Lactate Dehydrogenase Total Creatine Kinase C-Reactive Protein Total Protein Albumin Prealbumin CA 19-9 Antigen Folate PTH Intact Urine WBC (Auto) Urine Creatinine Urine Chloride Urine Total Protein Fluid Glucose Fluid Total Protein Vancomycin Trough 25.1 H Miscellaneous Test Crossmatch 05/25/18 05/26/18 05/26/18 22:46 00:21 00:51 WBC RBC Hgb Hct MCV MCHC RDW Plt Count Lymph % (Auto) [place] % (Auto) Lymph # [place] # Seg Neutrophils % Seg Neuts % (Manual) Lymphocytes % (Manual) Monocytes % (Manual) Seg Neutrophils # Seg Neutrophils # Man Lymphocytes # (Manual) Monocytes # (Manual) PT INR APTT Heparin Anti-Xa Level POC ABG pH POC ABG pCO2 POC ABG pO2 Sodium Potassium Chloride Carbon Dioxide BUN Creatinine Glucose POC Glucose 133 H Lactic Acid 8.10 H* 6.20 H* Calcium Phosphorus Magnesium Iron TIBC AST ALT Alkaline Phosphatase Lactate Dehydrogenase Total Creatine Kinase C-Reactive Protein Total Protein Albumin Prealbumin CA 19-9 Antigen Folate PTH Intact Urine WBC (Auto) Urine Creatinine Urine Chloride Urine Total Protein Fluid Glucose Fluid Total Protein Vancomycin Trough Miscellaneous Test Crossmatch 05/26/18 05/26/18 05/26/18 01:13 02:24 02:24 WBC 18.7 H RBC Hgb 11.6 L Hct MCV MCHC RDW Plt Count Lymph % (Auto) [place] % (Auto) Lymph # [place] # Seg Neutrophils % Seg Neuts % (Manual) Lymphocytes % (Manual) Monocytes % (Manual) Seg Neutrophils # Seg Neutrophils # Man Lymphocytes # (Manual) Monocytes # (Manual) PT INR APTT Heparin Anti-Xa Level POC ABG pH POC ABG pCO2 POC ABG pO2 Sodium 147 H Potassium 6.2 H* D Chloride 111.9 H Carbon Dioxide 19 L BUN 80 H Creatinine 5.1 H D Glucose 112 H POC Glucose Lactic Acid 5.20 H* Calcium 6.7 L D Phosphorus Magnesium Iron TIBC AST ALT Alkaline Phosphatase Lactate Dehydrogenase Total Creatine Kinase C-Reactive Protein Total Protein Albumin Prealbumin CA 19-9 Antigen Folate PTH Intact Urine WBC (Auto) Urine Creatinine Urine Chloride Urine Total Protein Fluid Glucose Fluid Total Protein Vancomycin Trough Miscellaneous Test Crossmatch 05/26/18 05/26/18 05/26/18 04:20 04:20 05:39 WBC RBC Hgb Hct MCV MCHC RDW Plt Count Lymph % (Auto) [place] % (Auto) Lymph # [place] # Seg Neutrophils % Seg Neuts % (Manual) Lymphocytes % (Manual) Monocytes % (Manual) Seg Neutrophils # Seg Neutrophils # Man Lymphocytes # (Manual) Monocytes # (Manual) PT INR APTT Heparin Anti-Xa Level POC ABG pH POC ABG pCO2 POC ABG pO2 Sodium 150 H Potassium Chloride 110.0 H Carbon Dioxide 19 L BUN 66 H Creatinine Glucose 166 H POC Glucose 187 H Lactic Acid 5.10 H* Calcium 6.9 L Phosphorus 6.70 H D Magnesium Iron TIBC AST ALT Alkaline Phosphatase Lactate Dehydrogenase Total Creatine Kinase C-Reactive Protein Total Protein Albumin Prealbumin CA 19-9 Antigen Folate PTH Intact Urine WBC (Auto) Urine Creatinine Urine Chloride Urine Total Protein Fluid Glucose Fluid Total Protein Vancomycin Trough Miscellaneous Test Crossmatch 05/26/18 05/26/18 05/26/18 06:02 07:29 11:00 WBC RBC Hgb Hct MCV MCHC RDW Plt Count Lymph % (Auto) [place] % (Auto) Lymph # [place] # Seg Neutrophils % Seg Neuts % (Manual) Lymphocytes % (Manual) Monocytes % (Manual) Seg Neutrophils # Seg Neutrophils # Man Lymphocytes # (Manual) Monocytes # (Manual) PT INR APTT Heparin Anti-Xa Level POC ABG pH POC ABG pCO2 28.8 L POC ABG pO2 Sodium Potassium Chloride Carbon Dioxide BUN Creatinine Glucose POC Glucose Lactic Acid 4.80 H* 3.80 H* Calcium Phosphorus Magnesium Iron TIBC AST ALT Alkaline Phosphatase Lactate Dehydrogenase Total Creatine Kinase C-Reactive Protein Total Protein Albumin Prealbumin CA 19-9 Antigen Folate PTH Intact Urine WBC (Auto) Urine Creatinine Urine Chloride Urine Total Protein Fluid Glucose Fluid Total Protein Vancomycin Trough Miscellaneous Test Crossmatch 05/26/18 05/26/18 05/26/18 11:01 12:28 18:00 WBC RBC Hgb Hct MCV MCHC RDW Plt Count Lymph % (Auto) [place] % (Auto) Lymph # [place] # Seg Neutrophils % Seg Neuts % (Manual) Lymphocytes % (Manual) Monocytes % (Manual) Seg Neutrophils # Seg Neutrophils # Man Lymphocytes # (Manual) Monocytes # (Manual) PT INR APTT Heparin Anti-Xa Level POC ABG pH POC ABG pCO2 POC ABG pO2 Sodium 150 H 151 H Potassium 5.3 H D 6.1 H* Chloride 110.3 H 117.0 H Carbon Dioxide 21 L 20 L BUN 75 H 77 H Creatinine 4.3 H D 4.6 H Glucose 161 H POC Glucose 114 H Lactic Acid Calcium 7.5 L 6.7 L Phosphorus Magnesium Iron TIBC AST 1041 H ALT 406 H Alkaline Phosphatase 281 H Lactate Dehydrogenase Total Creatine Kinase C-Reactive Protein Total Protein 4.4 L Albumin 1.3 L Prealbumin CA 19-9 Antigen Folate PTH Intact Urine WBC (Auto) Urine Creatinine Urine Chloride Urine Total Protein Fluid Glucose Fluid Total Protein Vancomycin Trough Miscellaneous Test Crossmatch 05/26/18 05/26/18 05/27/18 18:02 19:17 01:01 WBC 21.7 H RBC 2.70 L Hgb 7.8 L D Hct 24.6 L D MCV MCHC RDW 15.3 H Plt Count Lymph % (Auto) [place] % (Auto) Lymph # [place] # Seg Neutrophils % Seg Neuts % (Manual) 94.0 H Lymphocytes % (Manual) 3.0 L Monocytes % (Manual) Seg Neutrophils # Seg Neutrophils # Man 20.4 H Lymphocytes # (Manual) 0.7 L Monocytes # (Manual) PT INR APTT Heparin Anti-Xa Level POC ABG pH 7.159 L 7.205 L POC ABG pCO2 54.5 H 53.0 H POC ABG pO2 252 H Sodium Potassium Chloride Carbon Dioxide BUN Creatinine Glucose POC Glucose Lactic Acid Calcium Phosphorus Magnesium Iron TIBC AST ALT Alkaline Phosphatase Lactate Dehydrogenase Total Creatine Kinase C-Reactive Protein Total Protein Albumin Prealbumin CA 19-9 Antigen Folate PTH Intact Urine WBC (Auto) Urine Creatinine Urine Chloride Urine Total Protein Fluid Glucose Fluid Total Protein Vancomycin Trough Miscellaneous Test Crossmatch 05/27/18 05/27/18 05/27/18 05:15 05:15 06:11 WBC 24.9 H RBC 2.86 L Hgb 8.1 L Hct 25.9 L MCV MCHC RDW 15.5 H Plt Count Lymph % (Auto) [place] % (Auto) Lymph # [place] # Seg Neutrophils % Seg Neuts % (Manual) Lymphocytes % (Manual) Monocytes % (Manual) Seg Neutrophils # Seg Neutrophils # Man Lymphocytes # (Manual) Monocytes # (Manual) PT INR APTT Heparin Anti-Xa Level POC ABG pH 7.265 L POC ABG pCO2 46.2 H POC ABG pO2 111 H Sodium 149 H Potassium 6.9 H* Chloride 113.5 H Carbon Dioxide BUN 89 H Creatinine 5.2 H Glucose 118 H POC Glucose Lactic Acid Calcium 7.0 L Phosphorus 9.70 H D Magnesium Iron TIBC AST 876 H ALT 408 H Alkaline Phosphatase Lactate Dehydrogenase Total Creatine Kinase C-Reactive Protein Total Protein 5.2 L Albumin 1.5 L Prealbumin CA 19-9 Antigen Folate PTH Intact Urine WBC (Auto) Urine Creatinine Urine Chloride Urine Total Protein Fluid Glucose Fluid Total Protein Vancomycin Trough Miscellaneous Test Crossmatch 05/27/18 05/27/18 05/27/18 08:48 10:22 10:22 WBC RBC Hgb Hct MCV MCHC RDW Plt Count Lymph % (Auto) [place] % (Auto) Lymph # [place] # Seg Neutrophils % Seg Neuts % (Manual) Lymphocytes % (Manual) Monocytes % (Manual) Seg Neutrophils # Seg Neutrophils # Man Lymphocytes # (Manual) Monocytes # (Manual) PT INR APTT Heparin Anti-Xa Level POC ABG pH POC ABG pCO2 POC ABG pO2 Sodium 146 H Potassium 6.1 H* Chloride 108.2 H Carbon Dioxide 21 L BUN 88 H Creatinine 5.6 H Glucose 163 H POC Glucose 164 H Lactic Acid Calcium 6.7 L Phosphorus Magnesium Iron TIBC AST ALT Alkaline Phosphatase Lactate Dehydrogenase Total Creatine Kinase C-Reactive Protein 40.70 H Total Protein Albumin Prealbumin CA 19-9 Antigen Folate PTH Intact Urine WBC (Auto) Urine Creatinine Urine Chloride Urine Total Protein Fluid Glucose Fluid Total Protein Vancomycin Trough Miscellaneous Test Crossmatch 05/27/18 05/27/18 05/27/18 13:02 17:39 23:27 WBC RBC Hgb Hct MCV MCHC RDW Plt Count Lymph % (Auto) [place] % (Auto) Lymph # [place] # Seg Neutrophils % Seg Neuts % (Manual) Lymphocytes % (Manual) Monocytes % (Manual) Seg Neutrophils # Seg Neutrophils # Man Lymphocytes # (Manual) Monocytes # (Manual) PT INR APTT Heparin Anti-Xa Level POC ABG pH POC ABG pCO2 POC ABG pO2 Sodium Potassium Chloride Carbon Dioxide BUN Creatinine Glucose POC Glucose 59 L 132 H Lactic Acid Calcium Phosphorus Magnesium Iron TIBC AST ALT Alkaline Phosphatase Lactate Dehydrogenase Total Creatine Kinase C-Reactive Protein Total Protein Albumin Prealbumin CA 19-9 Antigen Folate PTH Intact Urine WBC (Auto) Urine Creatinine Urine Chloride Urine Total Protein Fluid Glucose Fluid Total Protein Vancomycin Trough Miscellaneous Test Flexitest 1 H Crossmatch 05/27/18 05/28/18 05/28/18 Unknown 04:32 05:00 WBC RBC Hgb Hct MCV MCHC RDW Plt Count Lymph % (Auto) [place] % (Auto) Lymph # [place] # Seg Neutrophils % Seg Neuts % (Manual) Lymphocytes % (Manual) Monocytes % (Manual) Seg Neutrophils # Seg Neutrophils # Man Lymphocytes # (Manual) Monocytes # (Manual) PT INR APTT Heparin Anti-Xa Level POC ABG pH POC ABG pCO2 POC ABG pO2 134 H Sodium Potassium Chloride Carbon Dioxide BUN 69 H Creatinine 4.4 H Glucose 118 H POC Glucose Lactic Acid Calcium 8.0 L D Phosphorus 6.80 H D Magnesium Iron TIBC AST ALT Alkaline Phosphatase Lactate Dehydrogenase Total Creatine Kinase C-Reactive Protein Total Protein Albumin Prealbumin CA 19-9 Antigen Folate PTH Intact Urine WBC (Auto) 120.0 H Urine Creatinine Urine Chloride Urine Total Protein Fluid Glucose Fluid Total Protein Vancomycin Trough Miscellaneous Test Crossmatch 05/28/18 05/28/18 05/28/18 05:00 05:27 13:04 WBC 26.5 H RBC 2.69 L Hgb 7.7 L Hct 23.6 L MCV MCHC RDW Plt Count Lymph % (Auto) [place] % (Auto) Lymph # [place] # Seg Neutrophils % Seg Neuts % (Manual) 96.0 H Lymphocytes % (Manual) 0 L Monocytes % (Manual) Seg Neutrophils # Seg Neutrophils # Man 25.4 H Lymphocytes # (Manual) 0.0 L Monocytes # (Manual) PT INR APTT Heparin Anti-Xa Level POC ABG pH POC ABG pCO2 POC ABG pO2 Sodium Potassium Chloride Carbon Dioxide BUN Creatinine Glucose POC Glucose 128 H 155 H Lactic Acid Calcium Phosphorus Magnesium Iron TIBC AST ALT Alkaline Phosphatase Lactate Dehydrogenase Total Creatine Kinase C-Reactive Protein Total Protein Albumin Prealbumin CA 19-9 Antigen Folate PTH Intact Urine WBC (Auto) Urine Creatinine Urine Chloride Urine Total Protein Fluid Glucose Fluid Total Protein Vancomycin Trough Miscellaneous Test Crossmatch 05/28/18 05/29/18 05/29/18 17:56 03:35 04:00 WBC RBC Hgb Hct MCV MCHC RDW Plt Count Lymph % (Auto) [place] % (Auto) Lymph # [place] # Seg Neutrophils % Seg Neuts % (Manual) Lymphocytes % (Manual) Monocytes % (Manual) Seg Neutrophils # Seg Neutrophils # Man Lymphocytes # (Manual) Monocytes # (Manual) PT INR APTT Heparin Anti-Xa Level POC ABG pH 7.471 H POC ABG pCO2 POC ABG pO2 78 L Sodium Potassium Chloride Carbon Dioxide BUN 50 H Creatinine 3.9 H Glucose POC Glucose 110 H Lactic Acid Calcium 7.7 L Phosphorus Magnesium 1.50 L Iron TIBC AST 218 H ALT 204 H Alkaline Phosphatase Lactate Dehydrogenase Total Creatine Kinase C-Reactive Protein Total Protein 5.4 L Albumin 1.6 L Prealbumin CA 19-9 Antigen Folate PTH Intact Urine WBC (Auto) Urine Creatinine Urine Chloride Urine Total Protein Fluid Glucose Fluid Total Protein Vancomycin Trough Miscellaneous Test Crossmatch 05/29/18 05/29/18 05/30/18 11:51 23:56 04:54 WBC RBC Hgb Hct MCV MCHC RDW Plt Count Lymph % (Auto) [place] % (Auto) Lymph # [place] # Seg Neutrophils % Seg Neuts % (Manual) Lymphocytes % (Manual) Monocytes % (Manual) Seg Neutrophils # Seg Neutrophils # Man Lymphocytes # (Manual) Monocytes # (Manual) PT INR APTT Heparin Anti-Xa Level POC ABG pH POC ABG pCO2 POC ABG pO2 Sodium Potassium Chloride Carbon Dioxide BUN Creatinine Glucose POC Glucose 131 H 119 H 115 H Lactic Acid Calcium Phosphorus Magnesium Iron TIBC AST ALT Alkaline Phosphatase Lactate Dehydrogenase Total Creatine Kinase C-Reactive Protein Total Protein Albumin Prealbumin CA 19-9 Antigen Folate PTH Intact Urine WBC (Auto) Urine Creatinine Urine Chloride Urine Total Protein Fluid Glucose Fluid Total Protein Vancomycin Trough Miscellaneous Test Crossmatch 05/30/18 05/30/18 05/30/18 05:07 05:15 05:15 WBC 16.2 H RBC 2.53 L Hgb 7.4 L Hct 21.9 L MCV MCHC RDW Plt Count Lymph % (Auto) [place] % (Auto) Lymph # [place] # Seg Neutrophils % Seg Neuts % (Manual) Lymphocytes % (Manual) Monocytes % (Manual) Seg Neutrophils # Seg Neutrophils # Man Lymphocytes # (Manual) Monocytes # (Manual) PT INR APTT Heparin Anti-Xa Level POC ABG pH POC ABG pCO2 34.5 L POC ABG pO2 133 H Sodium 135 L Potassium Chloride 97.5 L Carbon Dioxide BUN 69 H Creatinine 5.4 H Glucose 105 H POC Glucose Lactic Acid Calcium 7.5 L Phosphorus 5.30 H D Magnesium Iron TIBC AST ALT Alkaline Phosphatase Lactate Dehydrogenase Total Creatine Kinase C-Reactive Protein Total Protein Albumin Prealbumin CA 19-9 Antigen Folate PTH Intact Urine WBC (Auto) Urine Creatinine Urine Chloride Urine Total Protein Fluid Glucose Fluid Total Protein Vancomycin Trough Miscellaneous Test Crossmatch 05/30/18 05/30/18 05/31/18 12:13 17:10 04:50 WBC 18.7 H RBC 2.86 L Hgb 8.2 L Hct 24.8 L MCV MCHC RDW Plt Count Lymph % (Auto) [place] % (Auto) Lymph # [place] # Seg Neutrophils % Seg Neuts % (Manual) 91.0 H Lymphocytes % (Manual) 2.0 L Monocytes % (Manual) Seg Neutrophils # Seg Neutrophils # Man 17.0 H Lymphocytes # (Manual) 0.4 L Monocytes # (Manual) PT INR APTT Heparin Anti-Xa Level POC ABG pH POC ABG pCO2 POC ABG pO2 Sodium Potassium Chloride Carbon Dioxide BUN Creatinine Glucose POC Glucose 132 H 122 H Lactic Acid Calcium Phosphorus Magnesium Iron TIBC AST ALT Alkaline Phosphatase Lactate Dehydrogenase Total Creatine Kinase C-Reactive Protein Total Protein Albumin Prealbumin CA 19-9 Antigen Folate PTH Intact Urine WBC (Auto) Urine Creatinine Urine Chloride Urine Total Protein Fluid Glucose Fluid Total Protein Vancomycin Trough Miscellaneous Test Crossmatch 05/31/18 05/31/18 05/31/18 04:50 05:45 11:37 WBC RBC Hgb Hct MCV MCHC RDW Plt Count Lymph % (Auto) [place] % (Auto) Lymph # [place] # Seg Neutrophils % Seg Neuts % (Manual) Lymphocytes % (Manual) Monocytes % (Manual) Seg Neutrophils # Seg Neutrophils # Man Lymphocytes # (Manual) Monocytes # (Manual) PT INR APTT Heparin Anti-Xa Level POC ABG pH POC ABG pCO2 POC ABG pO2 Sodium 132 L Potassium Chloride 92.4 L Carbon Dioxide BUN 77 H Creatinine 5.9 H Glucose POC Glucose 111 H 136 H Lactic Acid Calcium 7.3 L Phosphorus 6.40 H D Magnesium Iron TIBC AST ALT Alkaline Phosphatase Lactate Dehydrogenase Total Creatine Kinase C-Reactive Protein Total Protein Albumin Prealbumin CA 19-9 Antigen Folate PTH Intact Urine WBC (Auto) Urine Creatinine Urine Chloride Urine Total Protein Fluid Glucose Fluid Total Protein Vancomycin Trough Miscellaneous Test Crossmatch 05/31/18 06/01/18 06/01/18 17:52 00:09 04:00 WBC RBC Hgb Hct MCV MCHC RDW Plt Count Lymph % (Auto) [place] % (Auto) Lymph # [place] # Seg Neutrophils % Seg Neuts % (Manual) Lymphocytes % (Manual) Monocytes % (Manual) Seg Neutrophils # Seg Neutrophils # Man Lymphocytes # (Manual) Monocytes # (Manual) PT INR APTT Heparin Anti-Xa Level POC ABG pH POC ABG pCO2 POC ABG pO2 Sodium Potassium Chloride 97.5 L Carbon Dioxide BUN 49 H Creatinine 4.2 H Glucose 104 H POC Glucose 115 H 114 H Lactic Acid Calcium 7.3 L Phosphorus 4.70 H D Magnesium Iron TIBC AST ALT Alkaline Phosphatase Lactate Dehydrogenase Total Creatine Kinase C-Reactive Protein Total Protein Albumin Prealbumin CA 19-9 Antigen Folate PTH Intact Urine WBC (Auto) Urine Creatinine Urine Chloride Urine Total Protein Fluid Glucose Fluid Total Protein Vancomycin Trough Miscellaneous Test Crossmatch 06/01/18 06/01/18 06/02/18 11:10 17:56 00:15 WBC RBC Hgb Hct MCV MCHC RDW Plt Count Lymph % (Auto) [place] % (Auto) Lymph # [place] # Seg Neutrophils % Seg Neuts % (Manual) Lymphocytes % (Manual) Monocytes % (Manual) Seg Neutrophils # Seg Neutrophils # Man Lymphocytes # (Manual) Monocytes # (Manual) PT INR APTT Heparin Anti-Xa Level POC ABG pH POC ABG pCO2 POC ABG pO2 Sodium Potassium Chloride Carbon Dioxide BUN Creatinine Glucose POC Glucose 123 H 126 H 135 H Lactic Acid Calcium Phosphorus Magnesium Iron TIBC AST ALT Alkaline Phosphatase Lactate Dehydrogenase Total Creatine Kinase C-Reactive Protein Total Protein Albumin Prealbumin CA 19-9 Antigen Folate PTH Intact Urine WBC (Auto) Urine Creatinine Urine Chloride Urine Total Protein Fluid Glucose Fluid Total Protein Vancomycin Trough Miscellaneous Test Crossmatch 06/02/18 06/02/18 06/02/18 05:23 12:42 13:05 WBC RBC Hgb Hct MCV MCHC RDW Plt Count Lymph % (Auto) [place] % (Auto) Lymph # [place] # Seg Neutrophils % Seg Neuts % (Manual) Lymphocytes % (Manual) Monocytes % (Manual) Seg Neutrophils # Seg Neutrophils # Man Lymphocytes # (Manual) Monocytes # (Manual) PT 17.1 H INR 1.34 H APTT Heparin Anti-Xa Level POC ABG pH POC ABG pCO2 POC ABG pO2 Sodium Potassium Chloride Carbon Dioxide BUN Creatinine Glucose POC Glucose 135 H 142 H Lactic Acid Calcium Phosphorus Magnesium Iron TIBC AST ALT Alkaline Phosphatase Lactate Dehydrogenase Total Creatine Kinase C-Reactive Protein Total Protein Albumin Prealbumin CA 19-9 Antigen Folate PTH Intact Urine WBC (Auto) Urine Creatinine Urine Chloride Urine Total Protein Fluid Glucose Fluid Total Protein Vancomycin Trough Miscellaneous Test Crossmatch 06/02/18 06/02/18 06/03/18 Unknown Unknown 00:54 WBC 20.8 H RBC 2.67 L Hgb 7.7 L Hct 23.0 L MCV MCHC RDW Plt Count 500 H Lymph % (Auto) [place] % (Auto) Lymph # [place] # Seg Neutrophils % Seg Neuts % (Manual) Lymphocytes % (Manual) Monocytes % (Manual) Seg Neutrophils # Seg Neutrophils # Man Lymphocytes # (Manual) Monocytes # (Manual) PT INR APTT Heparin Anti-Xa Level POC ABG pH POC ABG pCO2 POC ABG pO2 Sodium 136 L Potassium 3.5 L Chloride 96.9 L Carbon Dioxide BUN 62 H Creatinine 4.9 H Glucose 133 H POC Glucose 125 H Lactic Acid Calcium 7.2 L Phosphorus 5.00 H Magnesium Iron TIBC AST 46 H ALT 66 H Alkaline Phosphatase Lactate Dehydrogenase Total Creatine Kinase C-Reactive Protein Total Protein 5.7 L Albumin 1.5 L Prealbumin CA 19-9 Antigen Folate PTH Intact Urine WBC (Auto) Urine Creatinine Urine Chloride Urine Total Protein Fluid Glucose Fluid Total Protein Vancomycin Trough Miscellaneous Test Crossmatch 06/03/18 06/03/18 06/03/18 03:31 09:18 09:18 WBC RBC Hgb Hct MCV MCHC RDW Plt Count Lymph % (Auto) [place] % (Auto) Lymph # [place] # Seg Neutrophils % Seg Neuts % (Manual) Lymphocytes % (Manual) Monocytes % (Manual) Seg Neutrophils # Seg Neutrophils # Man Lymphocytes # (Manual) Monocytes # (Manual) PT 17.1 H INR 1.34 H APTT Heparin Anti-Xa Level POC ABG pH POC ABG pCO2 POC ABG pO2 Sodium 136 L Potassium Chloride Carbon Dioxide BUN 41 H Creatinine 3.4 H Glucose 129 H POC Glucose Lactic Acid Calcium 7.4 L Phosphorus Magnesium Iron TIBC AST ALT Alkaline Phosphatase Lactate Dehydrogenase Total Creatine Kinase C-Reactive Protein 11.10 H Total Protein Albumin Prealbumin CA 19-9 Antigen Folate PTH Intact Urine WBC (Auto) Urine Creatinine Urine Chloride Urine Total Protein Fluid Glucose Fluid Total Protein Vancomycin Trough Miscellaneous Test Crossmatch 06/03/18 06/03/18 06/03/18 16:07 21:18 Unknown WBC RBC Hgb Hct MCV MCHC RDW Plt Count Lymph % (Auto) [place] % (Auto) Lymph # [place] # Seg Neutrophils % Seg Neuts % (Manual) Lymphocytes % (Manual) Monocytes % (Manual) Seg Neutrophils # Seg Neutrophils # Man Lymphocytes # (Manual) Monocytes # (Manual) PT INR APTT Heparin Anti-Xa Level POC ABG pH POC ABG pCO2 POC ABG pO2 Sodium Potassium Chloride Carbon Dioxide BUN Creatinine Glucose POC Glucose 144 H 128 H Lactic Acid Calcium Phosphorus Magnesium Iron TIBC AST ALT Alkaline Phosphatase Lactate Dehydrogenase Total Creatine Kinase C-Reactive Protein Total Protein Albumin Prealbumin CA 19-9 Antigen Folate PTH Intact Urine WBC (Auto) Urine Creatinine Urine Chloride Urine Total Protein Fluid Glucose 10 L Fluid Total Protein 3.7 L Vancomycin Trough Miscellaneous Test Crossmatch 06/04/18 06/04/18 06/04/18 04:31 06:14 11:38 WBC RBC Hgb Hct MCV MCHC RDW Plt Count Lymph % (Auto) [place] % (Auto) Lymph # [place] # Seg Neutrophils % Seg Neuts % (Manual) Lymphocytes % (Manual) Monocytes % (Manual) Seg Neutrophils # Seg Neutrophils # Man Lymphocytes # (Manual) Monocytes # (Manual) PT INR APTT Heparin Anti-Xa Level POC ABG pH POC ABG pCO2 POC ABG pO2 Sodium Potassium Chloride Carbon Dioxide BUN 55 H Creatinine 3.7 H Glucose 151 H POC Glucose 145 H 129 H Lactic Acid Calcium 7.8 L Phosphorus 4.60 H Magnesium Iron TIBC AST ALT Alkaline Phosphatase Lactate Dehydrogenase Total Creatine Kinase C-Reactive Protein Total Protein Albumin Prealbumin CA 19-9 Antigen Folate PTH Intact Urine WBC (Auto) Urine Creatinine Urine Chloride Urine Total Protein Fluid Glucose Fluid Total Protein Vancomycin Trough Miscellaneous Test Crossmatch 06/04/18 06/04/18 06/04/18 17:09 20:00 21:29 WBC RBC Hgb 8.8 L Hct 27.3 L MCV MCHC RDW Plt Count Lymph % (Auto) [place] % (Auto) Lymph # [place] # Seg Neutrophils % Seg Neuts % (Manual) Lymphocytes % (Manual) Monocytes % (Manual) Seg Neutrophils # Seg Neutrophils # Man Lymphocytes # (Manual) Monocytes # (Manual) PT INR APTT Heparin Anti-Xa Level POC ABG pH POC ABG pCO2 POC ABG pO2 Sodium Potassium Chloride Carbon Dioxide BUN Creatinine Glucose POC Glucose 142 H 130 H Lactic Acid Calcium Phosphorus Magnesium Iron TIBC AST ALT Alkaline Phosphatase Lactate Dehydrogenase Total Creatine Kinase C-Reactive Protein Total Protein Albumin Prealbumin CA 19-9 Antigen Folate PTH Intact Urine WBC (Auto) Urine Creatinine Urine Chloride Urine Total Protein Fluid Glucose Fluid Total Protein Vancomycin Trough Miscellaneous Test Crossmatch 06/05/18 06/05/18 06/05/18 06:30 07:00 07:00 WBC 19.3 H RBC 2.94 L Hgb 8.3 L Hct 25.6 L MCV MCHC RDW 15.7 H Plt Count 568 H Lymph % (Auto) 4.7 L [place] % (Auto) Lymph # 0.9 L [place] # 1.1 H Seg Neutrophils % 88.9 H Seg Neuts % (Manual) Lymphocytes % (Manual) Monocytes % (Manual) Seg Neutrophils # 17.2 H Seg Neutrophils # Man Lymphocytes # (Manual) Monocytes # (Manual) PT INR APTT Heparin Anti-Xa Level POC ABG pH POC ABG pCO2 POC ABG pO2 Sodium Potassium 3.4 L D Chloride Carbon Dioxide BUN 67 H Creatinine 3.6 H Glucose 145 H POC Glucose 153 H Lactic Acid Calcium 7.9 L Phosphorus 4.60 H Magnesium Iron TIBC AST ALT Alkaline Phosphatase Lactate Dehydrogenase Total Creatine Kinase C-Reactive Protein Total Protein Albumin Prealbumin CA 19-9 Antigen Folate PTH Intact Urine WBC (Auto) Urine Creatinine Urine Chloride Urine Total Protein Fluid Glucose Fluid Total Protein Vancomycin Trough Miscellaneous Test Crossmatch 06/05/18 06/05/18 06/06/18 12:10 16:01 06:39 WBC RBC Hgb Hct MCV MCHC RDW Plt Count Lymph % (Auto) [place] % (Auto) Lymph # [place] # Seg Neutrophils % Seg Neuts % (Manual) Lymphocytes % (Manual) Monocytes % (Manual) Seg Neutrophils # Seg Neutrophils # Man Lymphocytes # (Manual) Monocytes # (Manual) PT INR APTT Heparin Anti-Xa Level POC ABG pH POC ABG pCO2 POC ABG pO2 Sodium Potassium Chloride Carbon Dioxide BUN Creatinine Glucose POC Glucose 150 H 129 H 131 H Lactic Acid Calcium Phosphorus Magnesium Iron TIBC AST ALT Alkaline Phosphatase Lactate Dehydrogenase Total Creatine Kinase C-Reactive Protein Total Protein Albumin Prealbumin CA 19-9 Antigen Folate PTH Intact Urine WBC (Auto) Urine Creatinine Urine Chloride Urine Total Protein Fluid Glucose Fluid Total Protein Vancomycin Trough Miscellaneous Test Crossmatch 06/06/18 06/06/18 06/06/18 07:14 07:14 07:14 WBC 16.5 H RBC 2.84 L Hgb 8.1 L Hct 25.2 L MCV MCHC RDW 16.4 H Plt Count 526 H Lymph % (Auto) 6.5 L [place] % (Auto) Lymph # 1.1 L [place] # 1.2 H Seg Neutrophils % 85.3 H Seg Neuts % (Manual) Lymphocytes % (Manual) Monocytes % (Manual) Seg Neutrophils # 14.1 H Seg Neutrophils # Man Lymphocytes # (Manual) Monocytes # (Manual) PT INR APTT Heparin Anti-Xa Level POC ABG pH POC ABG pCO2 POC ABG pO2 Sodium Potassium Chloride 109.1 H Carbon Dioxide 21 L BUN 76 H Creatinine 3.5 H Glucose 111 H POC Glucose Lactic Acid Calcium 8.1 L Phosphorus Magnesium Iron TIBC AST ALT Alkaline Phosphatase Lactate Dehydrogenase Total Creatine Kinase C-Reactive Protein 4.70 H Total Protein Albumin Prealbumin CA 19-9 Antigen Folate PTH Intact Urine WBC (Auto) Urine Creatinine Urine Chloride Urine Total Protein Fluid Glucose Fluid Total Protein Vancomycin Trough Miscellaneous Test Crossmatch 06/06/18 06/06/18 06/06/18 11:15 18:00 23:58 WBC RBC Hgb Hct MCV MCHC RDW Plt Count Lymph % (Auto) [place] % (Auto) Lymph # [place] # Seg Neutrophils % Seg Neuts % (Manual) Lymphocytes % (Manual) Monocytes % (Manual) Seg Neutrophils # Seg Neutrophils # Man Lymphocytes # (Manual) Monocytes # (Manual) PT INR APTT Heparin Anti-Xa Level POC ABG pH POC ABG pCO2 POC ABG pO2 Sodium Potassium Chloride Carbon Dioxide BUN Creatinine Glucose POC Glucose 127 H 130 H 114 H Lactic Acid Calcium Phosphorus Magnesium Iron TIBC AST ALT Alkaline Phosphatase Lactate Dehydrogenase Total Creatine Kinase C-Reactive Protein Total Protein Albumin Prealbumin CA 19-9 Antigen Folate PTH Intact Urine WBC (Auto) Urine Creatinine Urine Chloride Urine Total Protein Fluid Glucose Fluid Total Protein Vancomycin Trough Miscellaneous Test Crossmatch 06/07/18 06/07/18 06/07/18 05:45 05:45 05:54 WBC 15.5 H RBC 2.60 L Hgb 7.4 L Hct 23.1 L MCV MCHC RDW 16.5 H Plt Count 506 H Lymph % (Auto) 5.3 L [place] % (Auto) Lymph # 0.8 L [place] # 1.0 H Seg Neutrophils % 86.6 H Seg Neuts % (Manual) Lymphocytes % (Manual) Monocytes % (Manual) Seg Neutrophils # 13.4 H Seg Neutrophils # Man Lymphocytes # (Manual) Monocytes # (Manual) PT INR APTT Heparin Anti-Xa Level POC ABG pH POC ABG pCO2 POC ABG pO2 Sodium Potassium Chloride 108.4 H Carbon Dioxide BUN 84 H Creatinine 3.5 H Glucose 119 H POC Glucose 114 H Lactic Acid Calcium 8.1 L Phosphorus 5.10 H Magnesium Iron TIBC AST ALT Alkaline Phosphatase Lactate Dehydrogenase Total Creatine Kinase C-Reactive Protein Total Protein Albumin Prealbumin CA 19-9 Antigen Folate PTH Intact Urine WBC (Auto) Urine Creatinine Urine Chloride Urine Total Protein Fluid Glucose Fluid Total Protein Vancomycin Trough Miscellaneous Test Crossmatch 06/07/18 06/08/18 06/08/18 12:15 05:05 05:24 WBC RBC Hgb Hct MCV MCHC RDW Plt Count Lymph % (Auto) [place] % (Auto) Lymph # [place] # Seg Neutrophils % Seg Neuts % (Manual) Lymphocytes % (Manual) Monocytes % (Manual) Seg Neutrophils # Seg Neutrophils # Man Lymphocytes # (Manual) Monocytes # (Manual) PT INR APTT Heparin Anti-Xa Level POC ABG pH POC ABG pCO2 POC ABG pO2 Sodium 148 H Potassium Chloride 112.4 H Carbon Dioxide BUN 89 H Creatinine 3.4 H Glucose 120 H POC Glucose 148 H 115 H Lactic Acid Calcium 7.9 L Phosphorus Magnesium Iron TIBC AST ALT Alkaline Phosphatase Lactate Dehydrogenase Total Creatine Kinase C-Reactive Protein Total Protein Albumin Prealbumin CA 19-9 Antigen Folate PTH Intact Urine WBC (Auto) Urine Creatinine Urine Chloride Urine Total Protein Fluid Glucose Fluid Total Protein Vancomycin Trough Miscellaneous Test Crossmatch 06/08/18 06/08/18 06/08/18 21:36 21:43 21:43 WBC RBC 2.98 L Hgb 8.8 L Hct 26.6 L MCV MCHC RDW 16.7 H Plt Count 463 H Lymph % (Auto) 7.9 L [place] % (Auto) Lymph # 0.8 L [place] # Seg Neutrophils % 84.8 H Seg Neuts % (Manual) Lymphocytes % (Manual) Monocytes % (Manual) Seg Neutrophils # 8.6 H Seg Neutrophils # Man Lymphocytes # (Manual) Monocytes # (Manual) PT INR APTT Heparin Anti-Xa Level POC ABG pH POC ABG pCO2 POC ABG pO2 Sodium Potassium Chloride Carbon Dioxide BUN Creatinine Glucose POC Glucose Lactic Acid Calcium Phosphorus Magnesium Iron TIBC AST ALT Alkaline Phosphatase Lactate Dehydrogenase 297 H Total Creatine Kinase C-Reactive Protein Total Protein Albumin Prealbumin CA 19-9 Antigen 57 H Folate PTH Intact Urine WBC (Auto) Urine Creatinine Urine Chloride Urine Total Protein Fluid Glucose Fluid Total Protein Vancomycin Trough Miscellaneous Test Crossmatch 06/09/18 06/09/18 06/09/18 00:05 05:34 05:50 WBC RBC Hgb Hct MCV MCHC RDW Plt Count Lymph % (Auto) [place] % (Auto) Lymph # [place] # Seg Neutrophils % Seg Neuts % (Manual) Lymphocytes % (Manual) Monocytes % (Manual) Seg Neutrophils # Seg Neutrophils # Man Lymphocytes # (Manual) Monocytes # (Manual) PT INR APTT Heparin Anti-Xa Level POC ABG pH POC ABG pCO2 POC ABG pO2 Sodium 153 H Potassium Chloride 117.3 H Carbon Dioxide BUN 84 H Creatinine 3.2 H Glucose 117 H POC Glucose 140 H 146 H Lactic Acid Calcium 7.9 L Phosphorus Magnesium Iron TIBC AST ALT Alkaline Phosphatase Lactate Dehydrogenase Total Creatine Kinase C-Reactive Protein Total Protein Albumin Prealbumin CA 19-9 Antigen Folate PTH Intact Urine WBC (Auto) Urine Creatinine Urine Chloride Urine Total Protein Fluid Glucose Fluid Total Protein Vancomycin Trough Miscellaneous Test Crossmatch 06/09/18 06/09/18 06/09/18 05:50 07:37 10:34 WBC RBC 2.32 L Hgb 6.8 L Hct 20.7 L MCV MCHC RDW 16.7 H Plt Count Lymph % (Auto) [place] % (Auto) Lymph # [place] # Seg Neutrophils % Seg Neuts % (Manual) Lymphocytes % (Manual) Monocytes % (Manual) Seg Neutrophils # Seg Neutrophils # Man Lymphocytes # (Manual) Monocytes # (Manual) PT INR APTT Heparin Anti-Xa Level POC ABG pH POC ABG pCO2 POC ABG pO2 Sodium 149 H Potassium Chloride 114.6 H Carbon Dioxide BUN 84 H Creatinine 3.1 H Glucose 137 H POC Glucose Lactic Acid Calcium 7.7 L Phosphorus Magnesium Iron TIBC AST ALT Alkaline Phosphatase Lactate Dehydrogenase Total Creatine Kinase C-Reactive Protein Total Protein Albumin Prealbumin CA 19-9 Antigen Folate PTH Intact Urine WBC (Auto) Urine Creatinine Urine Chloride Urine Total Protein Fluid Glucose Fluid Total Protein Vancomycin Trough Miscellaneous Test Flexitest 1 H Crossmatch 06/09/18 06/09/18 06/09/18 10:41 11:56 13:24 WBC RBC 2.43 L Hgb 7.2 L Hct 21.6 L MCV MCHC RDW 16.8 H Plt Count Lymph % (Auto) [place] % (Auto) Lymph # [place] # Seg Neutrophils % Seg Neuts % (Manual) Lymphocytes % (Manual) Monocytes % (Manual) Seg Neutrophils # Seg Neutrophils # Man Lymphocytes # (Manual) Monocytes # (Manual) PT INR APTT Heparin Anti-Xa Level POC ABG pH POC ABG pCO2 POC ABG pO2 Sodium Potassium Chloride Carbon Dioxide BUN Creatinine Glucose POC Glucose 141 H Lactic Acid Calcium Phosphorus Magnesium Iron TIBC AST ALT Alkaline Phosphatase Lactate Dehydrogenase Total Creatine Kinase C-Reactive Protein Total Protein Albumin Prealbumin CA 19-9 Antigen Folate PTH Intact Urine WBC (Auto) Urine Creatinine Urine Chloride Urine Total Protein Fluid Glucose Fluid Total Protein Vancomycin Trough Miscellaneous Test Crossmatch See Detail 06/09/18 06/09/1818 18:18 23:13 05:26 WBC RBC Hgb Hct MCV MCHC RDW Plt Count Lymph % (Auto) [place] % (Auto) Lymph # [place] # Seg Neutrophils % Seg Neuts % (Manual) Lymphocytes % (Manual) Monocytes % (Manual) Seg Neutrophils # Seg Neutrophils # Man Lymphocytes # (Manual) Monocytes # (Manual) PT INR APTT Heparin Anti-Xa Level POC ABG pH POC ABG pCO2 POC ABG pO2 Sodium 148 H Potassium Chloride 114.7 H Carbon Dioxide 21 L BUN 79 H Creatinine 3.2 H Glucose 121 H POC Glucose 156 H 163 H Lactic Acid Calcium 7.8 L Phosphorus Magnesium 1.60 L Iron TIBC AST ALT Alkaline Phosphatase Lactate Dehydrogenase Total Creatine Kinase C-Reactive Protein Total Protein Albumin Prealbumin CA 19-9 Antigen Folate PTH Intact Urine WBC (Auto) Urine Creatinine Urine Chloride Urine Total Protein Fluid Glucose Fluid Total Protein Vancomycin Trough Miscellaneous Test Crossmatch 06/10/18 06/10/18 06/10/18 05:26 05:31 17:15 WBC 11.1 H RBC 3.07 L Hgb 9.1 L Hct 27.6 L D MCV MCHC RDW 17.4 H Plt Count Lymph % (Auto) [place] % (Auto) Lymph # [place] # Seg Neutrophils % Seg Neuts % (Manual) Lymphocytes % (Manual) Monocytes % (Manual) Seg Neutrophils # Seg Neutrophils # Man Lymphocytes # (Manual) Monocytes # (Manual) PT INR APTT Heparin Anti-Xa Level POC ABG pH POC ABG pCO2 POC ABG pO2 Sodium Potassium Chloride Carbon Dioxide BUN Creatinine Glucose POC Glucose 128 H Lactic Acid Calcium Phosphorus Magnesium Iron TIBC AST ALT Alkaline Phosphatase Lactate Dehydrogenase Total Creatine Kinase C-Reactive Protein 3.60 H Total Protein Albumin Prealbumin CA 19-9 Antigen Folate PTH Intact Urine WBC (Auto) Urine Creatinine Urine Chloride Urine Total Protein Fluid Glucose Fluid Total Protein Vancomycin Trough Miscellaneous Test Crossmatch 06/11/18 06/11/18 06/11/18 01:13 05:41 05:41 WBC 14.6 H RBC 3.40 L Hgb 9.8 L Hct 30.7 L MCV MCHC RDW 18.1 H Plt Count Lymph % (Auto) [place] % (Auto) Lymph # [place] # Seg Neutrophils % Seg Neuts % (Manual) Lymphocytes % (Manual) Monocytes % (Manual) Seg Neutrophils # Seg Neutrophils # Man Lymphocytes # (Manual) Monocytes # (Manual) PT INR APTT Heparin Anti-Xa Level POC ABG pH POC ABG pCO2 POC ABG pO2 Sodium Potassium Chloride 110.8 H Carbon Dioxide 18 L BUN 77 H Creatinine 3.0 H Glucose 116 H POC Glucose 126 H Lactic Acid Calcium 7.9 L Phosphorus Magnesium Iron TIBC AST ALT Alkaline Phosphatase Lactate Dehydrogenase Total Creatine Kinase C-Reactive Protein Total Protein Albumin Prealbumin CA 19-9 Antigen Folate PTH Intact Urine WBC (Auto) Urine Creatinine Urine Chloride Urine Total Protein Fluid Glucose Fluid Total Protein Vancomycin Trough Miscellaneous Test Crossmatch 06/11/18 06/11/18 06/11/18 06:20 07:41 07:41 WBC RBC Hgb Hct MCV MCHC RDW Plt Count Lymph % (Auto) [place] % (Auto) Lymph # [place] # Seg Neutrophils % Seg Neuts % (Manual) Lymphocytes % (Manual) Monocytes % (Manual) Seg Neutrophils # Seg Neutrophils # Man Lymphocytes # (Manual) Monocytes # (Manual) PT INR APTT Heparin Anti-Xa Level POC ABG pH POC ABG pCO2 POC ABG pO2 Sodium Potassium Chloride Carbon Dioxide BUN Creatinine Glucose POC Glucose 136 H Lactic Acid Calcium Phosphorus Magnesium Iron TIBC AST ALT Alkaline Phosphatase Lactate Dehydrogenase Total Creatine Kinase C-Reactive Protein Total Protein Albumin Prealbumin CA 19-9 Antigen Folate PTH Intact Urine WBC (Auto) 10.0 H Urine Creatinine 41.2 H Urine Chloride 49.2 L Urine Total Protein 142 H Fluid Glucose Fluid Total Protein Vancomycin Trough Miscellaneous Test Crossmatch 06/11/18 06/12/18 06/12/18 18:35 00:34 04:12 WBC RBC 3.18 L Hgb 9.5 L Hct 28.7 L MCV MCHC RDW 18.5 H Plt Count Lymph % (Auto) 8.1 L [place] % (Auto) Lymph # 0.9 L [place] # Seg Neutrophils % 84.6 H Seg Neuts % (Manual) Lymphocytes % (Manual) Monocytes % (Manual) Seg Neutrophils # 9.1 H Seg Neutrophils # Man Lymphocytes # (Manual) Monocytes # (Manual) PT INR APTT Heparin Anti-Xa Level POC ABG pH POC ABG pCO2 POC ABG pO2 Sodium Potassium Chloride Carbon Dioxide BUN Creatinine Glucose POC Glucose 125 H 129 H Lactic Acid Calcium Phosphorus Magnesium Iron TIBC AST ALT Alkaline Phosphatase Lactate Dehydrogenase Total Creatine Kinase C-Reactive Protein Total Protein Albumin Prealbumin CA 19-9 Antigen Folate PTH Intact Urine WBC (Auto) Urine Creatinine Urine Chloride Urine Total Protein Fluid Glucose Fluid Total Protein Vancomycin Trough Miscellaneous Test Crossmatch 06/12/18 06/12/18 06/12/18 04:12 06:30 11:43 WBC RBC Hgb Hct MCV MCHC RDW Plt Count Lymph % (Auto) [place] % (Auto) Lymph # [place] # Seg Neutrophils % Seg Neuts % (Manual) Lymphocytes % (Manual) Monocytes % (Manual) Seg Neutrophils # Seg Neutrophils # Man Lymphocytes # (Manual) Monocytes # (Manual) PT INR APTT Heparin Anti-Xa Level POC ABG pH POC ABG pCO2 POC ABG pO2 Sodium Potassium Chloride 108.5 H Carbon Dioxide 21 L BUN 72 H Creatinine 3.0 H Glucose 122 H POC Glucose 129 H 126 H Lactic Acid Calcium 7.8 L Phosphorus Magnesium Iron TIBC AST 45 H ALT Alkaline Phosphatase 200 H Lactate Dehydrogenase Total Creatine Kinase 34 L C-Reactive Protein Total Protein Albumin 1.7 L Prealbumin CA 19-9 Antigen Folate PTH Intact Urine WBC (Auto) Urine Creatinine Urine Chloride Urine Total Protein Fluid Glucose Fluid Total Protein Vancomycin Trough Miscellaneous Test Crossmatch 06/12/18 06/12/18 06/13/18 16:00 23:56 03:44 WBC RBC Hgb Hct MCV MCHC RDW Plt Count Lymph % (Auto) [place] % (Auto) Lymph # [place] # Seg Neutrophils % Seg Neuts % (Manual) Lymphocytes % (Manual) Monocytes % (Manual) Seg Neutrophils # Seg Neutrophils # Man Lymphocytes # (Manual) Monocytes # (Manual) PT INR APTT Heparin Anti-Xa Level POC ABG pH POC ABG pCO2 POC ABG pO2 Sodium Potassium Chloride Carbon Dioxide BUN Creatinine Glucose POC Glucose 123 H 128 H 121 H Lactic Acid Calcium Phosphorus Magnesium Iron TIBC AST ALT Alkaline Phosphatase Lactate Dehydrogenase Total Creatine Kinase C-Reactive Protein Total Protein Albumin Prealbumin CA 19-9 Antigen Folate PTH Intact Urine WBC (Auto) Urine Creatinine Urine Chloride Urine Total Protein Fluid Glucose Fluid Total Protein Vancomycin Trough Miscellaneous Test Crossmatch 06/13/18 06/13/18 06/14/18 05:59 11:29 01:08 WBC RBC Hgb Hct MCV MCHC RDW Plt Count Lymph % (Auto) [place] % (Auto) Lymph # [place] # Seg Neutrophils % Seg Neuts % (Manual) Lymphocytes % (Manual) Monocytes % (Manual) Seg Neutrophils # Seg Neutrophils # Man Lymphocytes # (Manual) Monocytes # (Manual) PT INR APTT Heparin Anti-Xa Level POC ABG pH POC ABG pCO2 POC ABG pO2 Sodium 134 L Potassium Chloride Carbon Dioxide 20 L BUN 69 H Creatinine 2.9 H Glucose 113 H POC Glucose 124 H 128 H Lactic Acid Calcium 7.8 L Phosphorus Magnesium Iron TIBC AST ALT Alkaline Phosphatase Lactate Dehydrogenase Total Creatine Kinase C-Reactive Protein Total Protein Albumin Prealbumin CA 19-9 Antigen Folate PTH Intact Urine WBC (Auto) Urine Creatinine Urine Chloride Urine Total Protein Fluid Glucose Fluid Total Protein Vancomycin Trough Miscellaneous Test Crossmatch 06/14/18 06/14/18 06/14/18 06:42 06:42 09:50 WBC 11.3 H RBC 3.02 L Hgb 8.8 L Hct 27.3 L MCV MCHC RDW 18.6 H Plt Count Lymph % (Auto) [place] % (Auto) Lymph # [place] # Seg Neutrophils % Seg Neuts % (Manual) Lymphocytes % (Manual) Monocytes % (Manual) Seg Neutrophils # Seg Neutrophils # Man Lymphocytes # (Manual) Monocytes # (Manual) PT 16.3 H INR 1.24 H APTT Heparin Anti-Xa Level POC ABG pH POC ABG pCO2 POC ABG pO2 Sodium 132 L Potassium Chloride Carbon Dioxide 19 L BUN 71 H Creatinine 3.1 H Glucose POC Glucose Lactic Acid Calcium 7.8 L Phosphorus Magnesium Iron TIBC AST ALT Alkaline Phosphatase Lactate Dehydrogenase Total Creatine Kinase C-Reactive Protein Total Protein Albumin Prealbumin CA 19-9 Antigen Folate PTH Intact Urine WBC (Auto) Urine Creatinine Urine Chloride Urine Total Protein Fluid Glucose Fluid Total Protein Vancomycin Trough Miscellaneous Test Crossmatch 06/14/18 06/14/18 06/15/18 12:31 17:04 01:18 WBC RBC Hgb Hct MCV MCHC RDW Plt Count Lymph % (Auto) [place] % (Auto) Lymph # [place] # Seg Neutrophils % Seg Neuts % (Manual) Lymphocytes % (Manual) Monocytes % (Manual) Seg Neutrophils # Seg Neutrophils # Man Lymphocytes # (Manual) Monocytes # (Manual) PT INR APTT Heparin Anti-Xa Level POC ABG pH POC ABG pCO2 POC ABG pO2 Sodium Potassium Chloride Carbon Dioxide BUN Creatinine Glucose POC Glucose 125 H 109 H 124 H Lactic Acid Calcium Phosphorus Magnesium Iron TIBC AST ALT Alkaline Phosphatase Lactate Dehydrogenase Total Creatine Kinase C-Reactive Protein Total Protein Albumin Prealbumin CA 19-9 Antigen Folate PTH Intact Urine WBC (Auto) Urine Creatinine Urine Chloride Urine Total Protein Fluid Glucose Fluid Total Protein Vancomycin Trough Miscellaneous Test Crossmatch 06/15/18 06/15/18 06/15/18 05:27 06:34 11:42 WBC RBC Hgb Hct MCV MCHC RDW Plt Count Lymph % (Auto) [place] % (Auto) Lymph # [place] # Seg Neutrophils % Seg Neuts % (Manual) Lymphocytes % (Manual) Monocytes % (Manual) Seg Neutrophils # Seg Neutrophils # Man Lymphocytes # (Manual) Monocytes # (Manual) PT INR APTT Heparin Anti-Xa Level POC ABG pH POC ABG pCO2 POC ABG pO2 Sodium 134 L Potassium Chloride Carbon Dioxide 17 L BUN 77 H Creatinine 3.2 H Glucose 110 H POC Glucose 116 H 131 H Lactic Acid Calcium 8.1 L Phosphorus 6.20 H D Magnesium Iron TIBC AST ALT Alkaline Phosphatase Lactate Dehydrogenase Total Creatine Kinase C-Reactive Protein Total Protein Albumin Prealbumin CA 19-9 Antigen Folate PTH Intact Urine WBC (Auto) Urine Creatinine Urine Chloride Urine Total Protein Fluid Glucose Fluid Total Protein Vancomycin Trough Miscellaneous Test Crossmatch 06/16/18 06/16/18 06/16/18 00:57 05:10 06:07 WBC RBC Hgb Hct MCV MCHC RDW Plt Count Lymph % (Auto) [place] % (Auto) Lymph # [place] # Seg Neutrophils % Seg Neuts % (Manual) Lymphocytes % (Manual) Monocytes % (Manual) Seg Neutrophils # Seg Neutrophils # Man Lymphocytes # (Manual) Monocytes # (Manual) PT INR APTT Heparin Anti-Xa Level POC ABG pH POC ABG pCO2 POC ABG pO2 Sodium 132 L Potassium Chloride Carbon Dioxide 19 L BUN 83 H Creatinine 3.2 H Glucose 113 H POC Glucose 137 H 109 H Lactic Acid Calcium 7.8 L Phosphorus 6.10 H Magnesium Iron TIBC AST ALT Alkaline Phosphatase Lactate Dehydrogenase Total Creatine Kinase C-Reactive Protein Total Protein Albumin Prealbumin CA 19-9 Antigen Folate PTH Intact Urine WBC (Auto) Urine Creatinine Urine Chloride Urine Total Protein Fluid Glucose Fluid Total Protein Vancomycin Trough Miscellaneous Test Crossmatch 06/16/18 06/16/18 06/17/18 11:51 15:46 00:02 WBC RBC Hgb Hct MCV MCHC RDW Plt Count Lymph % (Auto) [place] % (Auto) Lymph # [place] # Seg Neutrophils % Seg Neuts % (Manual) Lymphocytes % (Manual) Monocytes % (Manual) Seg Neutrophils # Seg Neutrophils # Man Lymphocytes # (Manual) Monocytes # (Manual) PT INR APTT Heparin Anti-Xa Level POC ABG pH POC ABG pCO2 POC ABG pO2 Sodium Potassium Chloride Carbon Dioxide BUN Creatinine Glucose POC Glucose 126 H 127 H 107 H Lactic Acid Calcium Phosphorus Magnesium Iron TIBC AST ALT Alkaline Phosphatase Lactate Dehydrogenase Total Creatine Kinase C-Reactive Protein Total Protein Albumin Prealbumin CA 19-9 Antigen Folate PTH Intact Urine WBC (Auto) Urine Creatinine Urine Chloride Urine Total Protein Fluid Glucose Fluid Total Protein Vancomycin Trough Miscellaneous Test Crossmatch 06/17/18 06/17/18 06/17/18 05:52 11:46 16:58 WBC RBC Hgb Hct MCV MCHC RDW Plt Count Lymph % (Auto) [place] % (Auto) Lymph # [place] # Seg Neutrophils % Seg Neuts % (Manual) Lymphocytes % (Manual) Monocytes % (Manual) Seg Neutrophils # Seg Neutrophils # Man Lymphocytes # (Manual) Monocytes # (Manual) PT INR APTT Heparin Anti-Xa Level POC ABG pH POC ABG pCO2 POC ABG pO2 Sodium 133 L Potassium Chloride Carbon Dioxide 17 L BUN 87 H Creatinine 3.2 H Glucose POC Glucose 129 H 140 H Lactic Acid Calcium 8.1 L Phosphorus 6.50 H Magnesium Iron TIBC AST ALT Alkaline Phosphatase Lactate Dehydrogenase Total Creatine Kinase C-Reactive Protein Total Protein Albumin Prealbumin 0.130 L CA 19-9 Antigen Folate PTH Intact Urine WBC (Auto) Urine Creatinine Urine Chloride Urine Total Protein Fluid Glucose Fluid Total Protein Vancomycin Trough Miscellaneous Test Crossmatch 06/18/18 06/18/18 06/18/18 04:04 04:04 14:15 WBC RBC 3.00 L Hgb 8.9 L Hct 26.5 L MCV MCHC RDW 17.8 H Plt Count 494 H Lymph % (Auto) 7.9 L [place] % (Auto) 9.3 H Lymph # 0.8 L [place] # 1.0 H Seg Neutrophils % 81.2 H Seg Neuts % (Manual) Lymphocytes % (Manual) Monocytes % (Manual) Seg Neutrophils # 8.6 H Seg Neutrophils # Man Lymphocytes # (Manual) Monocytes # (Manual) PT INR APTT Heparin Anti-Xa Level POC ABG pH POC ABG pCO2 POC ABG pO2 Sodium 128 L Potassium Chloride Carbon Dioxide 18 L BUN 88 H Creatinine 3.1 H Glucose 129 H POC Glucose 143 H Lactic Acid Calcium 7.8 L Phosphorus 6.20 H Magnesium Iron TIBC AST ALT Alkaline Phosphatase Lactate Dehydrogenase Total Creatine Kinase C-Reactive Protein Total Protein Albumin Prealbumin CA 19-9 Antigen Folate PTH Intact Urine WBC (Auto) Urine Creatinine Urine Chloride Urine Total Protein Fluid Glucose Fluid Total Protein Vancomycin Trough Miscellaneous Test Crossmatch 06/18/18 06/19/18 06/19/18 17:54 01:45 06:20 WBC RBC Hgb Hct MCV MCHC RDW Plt Count Lymph % (Auto) [place] % (Auto) Lymph # [place] # Seg Neutrophils % Seg Neuts % (Manual) Lymphocytes % (Manual) Monocytes % (Manual) Seg Neutrophils # Seg Neutrophils # Man Lymphocytes # (Manual) Monocytes # (Manual) PT INR APTT Heparin Anti-Xa Level POC ABG pH POC ABG pCO2 POC ABG pO2 Sodium Potassium Chloride 93.9 L Carbon Dioxide BUN 78 H Creatinine 2.8 H Glucose POC Glucose 138 H 141 H Lactic Acid Calcium 7.1 L Phosphorus 6.40 H Magnesium Iron TIBC AST ALT Alkaline Phosphatase Lactate Dehydrogenase Total Creatine Kinase C-Reactive Protein Total Protein Albumin Prealbumin CA 19-9 Antigen Folate PTH Intact Urine WBC (Auto) Urine Creatinine Urine Chloride Urine Total Protein Fluid Glucose Fluid Total Protein Vancomycin Trough Miscellaneous Test Crossmatch 06/19/18 06/19/18 06/19/18 06:49 07:59 16:32 WBC RBC Hgb Hct MCV MCHC RDW Plt Count Lymph % (Auto) [place] % (Auto) Lymph # [place] # Seg Neutrophils % Seg Neuts % (Manual) Lymphocytes % (Manual) Monocytes % (Manual) Seg Neutrophils # Seg Neutrophils # Man Lymphocytes # (Manual) Monocytes # (Manual) PT INR APTT Heparin Anti-Xa Level POC ABG pH POC ABG pCO2 POC ABG pO2 Sodium Potassium Chloride Carbon Dioxide BUN 80 H Creatinine 2.9 H Glucose 123 H POC Glucose 130 H 134 H Lactic Acid Calcium 7.7 L Phosphorus Magnesium Iron TIBC AST ALT Alkaline Phosphatase Lactate Dehydrogenase Total Creatine Kinase C-Reactive Protein Total Protein Albumin Prealbumin CA 19-9 Antigen Folate PTH Intact Urine WBC (Auto) Urine Creatinine Urine Chloride Urine Total Protein Fluid Glucose Fluid Total Protein Vancomycin Trough Miscellaneous Test Crossmatch 06/20/18 06/20/18 06/20/18 00:11 05:55 05:55 WBC RBC 2.73 L Hgb 8.0 L Hct 24.2 L MCV MCHC RDW 17.4 H Plt Count 512 H Lymph % (Auto) 12.3 L [place] % (Auto) 11.3 H Lymph # 1.1 L [place] # 1.0 H Seg Neutrophils % 74.8 H Seg Neuts % (Manual) Lymphocytes % (Manual) Monocytes % (Manual) Seg Neutrophils # Seg Neutrophils # Man Lymphocytes # (Manual) Monocytes # (Manual) PT INR APTT Heparin Anti-Xa Level POC ABG pH POC ABG pCO2 POC ABG pO2 Sodium Potassium Chloride Carbon Dioxide 32 H BUN 70 H Creatinine 2.5 H Glucose 105 H POC Glucose 131 H Lactic Acid Calcium 8.0 L Phosphorus Magnesium Iron TIBC AST ALT Alkaline Phosphatase Lactate Dehydrogenase Total Creatine Kinase C-Reactive Protein Total Protein Albumin Prealbumin CA 19-9 Antigen Folate PTH Intact Urine WBC (Auto) Urine Creatinine Urine Chloride Urine Total Protein Fluid Glucose Fluid Total Protein Vancomycin Trough Miscellaneous Test Crossmatch 06/20/18 06/20/18 06/20/18 05:55 12:10 16:01 WBC RBC Hgb Hct MCV MCHC RDW Plt Count Lymph % (Auto) [place] % (Auto) Lymph # [place] # Seg Neutrophils % Seg Neuts % (Manual) Lymphocytes % (Manual) Monocytes % (Manual) Seg Neutrophils # Seg Neutrophils # Man Lymphocytes # (Manual) Monocytes # (Manual) PT INR APTT Heparin Anti-Xa Level POC ABG pH POC ABG pCO2 POC ABG pO2 Sodium Potassium Chloride Carbon Dioxide BUN Creatinine Glucose POC Glucose 112 H 127 H 145 H Lactic Acid Calcium Phosphorus Magnesium Iron TIBC AST ALT Alkaline Phosphatase Lactate Dehydrogenase Total Creatine Kinase C-Reactive Protein Total Protein Albumin Prealbumin CA 19-9 Antigen Folate PTH Intact Urine WBC (Auto) Urine Creatinine Urine Chloride Urine Total Protein Fluid Glucose Fluid Total Protein Vancomycin Trough Miscellaneous Test Crossmatch 06/20/18 06/21/18 06/21/18 23:54 05:50 05:50 WBC RBC 2.57 L Hgb 7.7 L Hct 26.6 L MCV 104 H MCHC 29 L RDW 19.1 H Plt Count 521 H Lymph % (Auto) 10.0 L [place] % (Auto) 7.4 H Lymph # 1.0 L [place] # Seg Neutrophils % 81.3 H Seg Neuts % (Manual) Lymphocytes % (Manual) Monocytes % (Manual) Seg Neutrophils # 7.9 H Seg Neutrophils # Man Lymphocytes # (Manual) Monocytes # (Manual) PT INR APTT Heparin Anti-Xa Level POC ABG pH POC ABG pCO2 POC ABG pO2 Sodium Potassium 5.8 H D Chloride 90.3 L Carbon Dioxide 37 H BUN 57 H Creatinine 1.9 H Glucose POC Glucose 154 H Lactic Acid Calcium 7.3 L Phosphorus Magnesium Iron TIBC AST 50 H ALT Alkaline Phosphatase 190 H Lactate Dehydrogenase Total Creatine Kinase C-Reactive Protein Total Protein Albumin 1.8 L Prealbumin CA 19-9 Antigen Folate PTH Intact Urine WBC (Auto) Urine Creatinine Urine Chloride Urine Total Protein Fluid Glucose Fluid Total Protein Vancomycin Trough Miscellaneous Test Crossmatch 06/21/18 06/21/18 06/21/18 06:57 13:37 17:00 WBC RBC Hgb Hct MCV MCHC RDW Plt Count Lymph % (Auto) [place] % (Auto) Lymph # [place] # Seg Neutrophils % Seg Neuts % (Manual) Lymphocytes % (Manual) Monocytes % (Manual) Seg Neutrophils # Seg Neutrophils # Man Lymphocytes # (Manual) Monocytes # (Manual) PT INR APTT Heparin Anti-Xa Level POC ABG pH POC ABG pCO2 POC ABG pO2 Sodium Potassium Chloride Carbon Dioxide BUN Creatinine Glucose 111 H POC Glucose 141 H 148 H Lactic Acid Calcium Phosphorus Magnesium Iron TIBC AST ALT Alkaline Phosphatase Lactate Dehydrogenase Total Creatine Kinase C-Reactive Protein Total Protein Albumin Prealbumin CA 19-9 Antigen Folate PTH Intact Urine WBC (Auto) Urine Creatinine Urine Chloride Urine Total Protein Fluid Glucose Fluid Total Protein Vancomycin Trough Miscellaneous Test Crossmatch 06/21/18 06/21/18 06/22/18 17:27 22:01 06:02 WBC RBC Hgb Hct MCV MCHC RDW Plt Count Lymph % (Auto) [place] % (Auto) Lymph # [place] # Seg Neutrophils % Seg Neuts % (Manual) Lymphocytes % (Manual) Monocytes % (Manual) Seg Neutrophils # Seg Neutrophils # Man Lymphocytes # (Manual) Monocytes # (Manual) PT INR APTT Heparin Anti-Xa Level POC ABG pH POC ABG pCO2 POC ABG pO2 Sodium Potassium 3.2 L Chloride Carbon Dioxide 39 H BUN 53 H Creatinine 1.9 H Glucose 1348 H* POC Glucose 130 H 122 H Lactic Acid Calcium 7.5 L Phosphorus Magnesium Iron TIBC AST ALT Alkaline Phosphatase Lactate Dehydrogenase Total Creatine Kinase C-Reactive Protein Total Protein Albumin Prealbumin CA 19-9 Antigen Folate PTH Intact Urine WBC (Auto) Urine Creatinine Urine Chloride Urine Total Protein Fluid Glucose Fluid Total Protein Vancomycin Trough Miscellaneous Test Crossmatch 06/22/18 06/22/18 06/22/18 06:16 07:26 07:48 WBC RBC Hgb Hct MCV MCHC RDW Plt Count Lymph % (Auto) [place] % (Auto) Lymph # [place] # Seg Neutrophils % Seg Neuts % (Manual) Lymphocytes % (Manual) Monocytes % (Manual) Seg Neutrophils # Seg Neutrophils # Man Lymphocytes # (Manual) Monocytes # (Manual) PT INR APTT Heparin Anti-Xa Level POC ABG pH POC ABG pCO2 POC ABG pO2 Sodium Potassium Chloride Carbon Dioxide 37 H BUN 57 H Creatinine 1.9 H Glucose 147 H POC Glucose 148 H 153 H Lactic Acid Calcium 8.3 L Phosphorus Magnesium Iron TIBC AST ALT Alkaline Phosphatase Lactate Dehydrogenase Total Creatine Kinase C-Reactive Protein Total Protein Albumin Prealbumin CA 19-9 Antigen Folate PTH Intact Urine WBC (Auto) Urine Creatinine Urine Chloride Urine Total Protein Fluid Glucose Fluid Total Protein Vancomycin Trough Miscellaneous Test Crossmatch 06/22/18 06/22/18 06/22/18 11:26 16:26 23:57 WBC RBC Hgb Hct MCV MCHC RDW Plt Count Lymph % (Auto) [place] % (Auto) Lymph # [place] # Seg Neutrophils % Seg Neuts % (Manual) Lymphocytes % (Manual) Monocytes % (Manual) Seg Neutrophils # Seg Neutrophils # Man Lymphocytes # (Manual) Monocytes # (Manual) PT INR APTT Heparin Anti-Xa Level POC ABG pH POC ABG pCO2 POC ABG pO2 Sodium Potassium Chloride Carbon Dioxide BUN Creatinine Glucose POC Glucose 121 H 122 H 180 H Lactic Acid Calcium Phosphorus Magnesium Iron TIBC AST ALT Alkaline Phosphatase Lactate Dehydrogenase Total Creatine Kinase C-Reactive Protein Total Protein Albumin Prealbumin CA 19-9 Antigen Folate PTH Intact Urine WBC (Auto) Urine Creatinine Urine Chloride Urine Total Protein Fluid Glucose Fluid Total Protein Vancomycin Trough Miscellaneous Test Crossmatch 06/22/18 06/23/18 06/23/18 23:57 00:30 01:40 WBC RBC Hgb Hct MCV MCHC RDW Plt Count Lymph % (Auto) [place] % (Auto) Lymph # [place] # Seg Neutrophils % Seg Neuts % (Manual) Lymphocytes % (Manual) Monocytes % (Manual) Seg Neutrophils # Seg Neutrophils # Man Lymphocytes # (Manual) Monocytes # (Manual) PT INR APTT Heparin Anti-Xa Level POC ABG pH 7.195 L 7.235 L POC ABG pCO2 105.2 H 95.7 H POC ABG pO2 Sodium Potassium Chloride Carbon Dioxide BUN Creatinine Glucose POC Glucose Lactic Acid Calcium Phosphorus Magnesium Iron TIBC AST ALT Alkaline Phosphatase Lactate Dehydrogenase Total Creatine Kinase C-Reactive Protein Total Protein Albumin Prealbumin CA 19-9 Antigen Folate PTH Intact Urine WBC (Auto) Urine Creatinine 99.7 H Urine Chloride 10.0 L Urine Total Protein 272 H Fluid Glucose Fluid Total Protein Vancomycin Trough Miscellaneous Test Crossmatch 06/23/18 06/23/18 06/23/18 05:58 07:20 08:31 WBC 16.0 H RBC 2.35 L Hgb 6.7 L Hct 22.3 L MCV 95 H MCHC 30 L RDW 18.5 H Plt Count 512 H Lymph % (Auto) [place] % (Auto) Lymph # [place] # Seg Neutrophils % Seg Neuts % (Manual) Lymphocytes % (Manual) Monocytes % (Manual) Seg Neutrophils # Seg Neutrophils # Man Lymphocytes # (Manual) Monocytes # (Manual) PT INR APTT Heparin Anti-Xa Level POC ABG pH POC ABG pCO2 POC ABG pO2 Sodium Potassium Chloride Carbon Dioxide BUN Creatinine Glucose POC Glucose 116 H 123 H Lactic Acid Calcium Phosphorus Magnesium Iron TIBC AST ALT Alkaline Phosphatase Lactate Dehydrogenase Total Creatine Kinase C-Reactive Protein Total Protein Albumin Prealbumin CA 19-9 Antigen Folate PTH Intact Urine WBC (Auto) Urine Creatinine Urine Chloride Urine Total Protein Fluid Glucose Fluid Total Protein Vancomycin Trough Miscellaneous Test Crossmatch 06/23/18 06/23/18 06/23/18 08:31 08:34 08:34 WBC RBC Hgb Hct MCV MCHC RDW Plt Count 485 H Lymph % (Auto) [place] % (Auto) Lymph # [place] # Seg Neutrophils % Seg Neuts % (Manual) Lymphocytes % (Manual) Monocytes % (Manual) Seg Neutrophils # Seg Neutrophils # Man Lymphocytes # (Manual) Monocytes # (Manual) PT 15.2 H INR 1.15 H APTT 41.9 H Heparin Anti-Xa Level POC ABG pH POC ABG pCO2 POC ABG pO2 Sodium 148 H Potassium Chloride Carbon Dioxide BUN 59 H Creatinine 2.2 H Glucose 106 H POC Glucose Lactic Acid Calcium 8.2 L Phosphorus 6.60 H Magnesium Iron TIBC AST 46 H ALT Alkaline Phosphatase 188 H Lactate Dehydrogenase Total Creatine Kinase C-Reactive Protein Total Protein Albumin 1.6 L Prealbumin CA 19-9 Antigen Folate PTH Intact Urine WBC (Auto) Urine Creatinine Urine Chloride Urine Total Protein Fluid Glucose Fluid Total Protein Vancomycin Trough Miscellaneous Test Crossmatch 06/23/18 06/23/18 06/23/18 09:29 09:40 09:43 WBC RBC Hgb Hct MCV MCHC RDW Plt Count Lymph % (Auto) [place] % (Auto) Lymph # [place] # Seg Neutrophils % Seg Neuts % (Manual) Lymphocytes % (Manual) Monocytes % (Manual) Seg Neutrophils # Seg Neutrophils # Man Lymphocytes # (Manual) Monocytes # (Manual) PT INR APTT Heparin Anti-Xa Level POC ABG pH 7.521 H POC ABG pCO2 53.6 H 48.4 H POC ABG pO2 37 L 181 H Sodium Potassium Chloride Carbon Dioxide BUN Creatinine Glucose POC Glucose Lactic Acid Calcium Phosphorus Magnesium Iron TIBC AST ALT Alkaline Phosphatase Lactate Dehydrogenase Total Creatine Kinase C-Reactive Protein Total Protein Albumin Prealbumin CA 19-9 Antigen Folate PTH Intact Urine WBC (Auto) Urine Creatinine Urine Chloride Urine Total Protein Fluid Glucose Fluid Total Protein Vancomycin Trough Miscellaneous Test Crossmatch See Detail 06/23/18 06/23/18 06/23/18 17:03 17:03 18:33 WBC 22.2 H RBC 2.85 L Hgb 8.4 L Hct 25.6 L MCV MCHC RDW 17.6 H Plt Count 515 H Lymph % (Auto) [place] % (Auto) Lymph # [place] # Seg Neutrophils % Seg Neuts % (Manual) Lymphocytes % (Manual) Monocytes % (Manual) Seg Neutrophils # Seg Neutrophils # Man Lymphocytes # (Manual) Monocytes # (Manual) PT INR APTT Heparin Anti-Xa Level 0.13 L POC ABG pH POC ABG pCO2 POC ABG pO2 Sodium Potassium Chloride Carbon Dioxide BUN Creatinine Glucose POC Glucose < 40 L Lactic Acid Calcium Phosphorus Magnesium Iron TIBC AST ALT Alkaline Phosphatase Lactate Dehydrogenase Total Creatine Kinase C-Reactive Protein Total Protein Albumin Prealbumin CA 19-9 Antigen Folate PTH Intact Urine WBC (Auto) Urine Creatinine Urine Chloride Urine Total Protein Fluid Glucose Fluid Total Protein Vancomycin Trough Miscellaneous Test Crossmatch 06/23/18 06/23/18 06/24/18 23:53 Unknown 00:30 WBC RBC Hgb Hct MCV MCHC RDW Plt Count Lymph % (Auto) [place] % (Auto) Lymph # [place] # Seg Neutrophils % Seg Neuts % (Manual) Lymphocytes % (Manual) Monocytes % (Manual) Seg Neutrophils # Seg Neutrophils # Man Lymphocytes # (Manual) Monocytes # (Manual) PT INR APTT Heparin Anti-Xa Level POC ABG pH POC ABG pCO2 POC ABG pO2 Sodium 148 H Potassium Chloride Carbon Dioxide 36 H BUN 57 H Creatinine 1.9 H Glucose POC Glucose 140 H Lactic Acid Calcium 8.3 L Phosphorus Magnesium Iron TIBC AST ALT Alkaline Phosphatase Lactate Dehydrogenase Total Creatine Kinase C-Reactive Protein Total Protein Albumin Prealbumin CA 19-9 Antigen Folate PTH Intact Urine WBC (Auto) 8.0 H Urine Creatinine Urine Chloride Urine Total Protein Fluid Glucose Fluid Total Protein Vancomycin Trough Miscellaneous Test Crossmatch 06/24/18 06/24/18 06/24/18 00:40 04:30 04:30 WBC 26.9 H RBC 2.79 L Hgb 8.1 L Hct 25.0 L MCV MCHC RDW 17.5 H Plt Count 487 H Lymph % (Auto) [place] % (Auto) Lymph # [place] # Seg Neutrophils % Seg Neuts % (Manual) Lymphocytes % (Manual) 6.0 L Monocytes % (Manual) 8.0 H Seg Neutrophils # Seg Neutrophils # Man 16.9 H Lymphocytes # (Manual) Monocytes # (Manual) 2.2 H PT INR APTT Heparin Anti-Xa Level 0.13 L POC ABG pH POC ABG pCO2 POC ABG pO2 Sodium 151 H Potassium Chloride Carbon Dioxide 36 H D BUN 74 H Creatinine 2.9 H Glucose 126 H POC Glucose Lactic Acid Calcium 8.2 L Phosphorus Magnesium Iron TIBC AST ALT Alkaline Phosphatase Lactate Dehydrogenase Total Creatine Kinase C-Reactive Protein Total Protein Albumin Prealbumin CA 19-9 Antigen Folate PTH Intact Urine WBC (Auto) Urine Creatinine Urine Chloride Urine Total Protein Fluid Glucose Fluid Total Protein Vancomycin Trough Miscellaneous Test Crossmatch 06/24/18 06/24/18 06/24/18 04:33 06:41 08:00 WBC RBC Hgb Hct MCV MCHC RDW Plt Count Lymph % (Auto) [place] % (Auto) Lymph # [place] # Seg Neutrophils % Seg Neuts % (Manual) Lymphocytes % (Manual) Monocytes % (Manual) Seg Neutrophils # Seg Neutrophils # Man Lymphocytes # (Manual) Monocytes # (Manual) PT INR APTT Heparin Anti-Xa Level 0.21 L POC ABG pH 7.517 H POC ABG pCO2 50.9 H POC ABG pO2 170 H Sodium Potassium Chloride Carbon Dioxide BUN Creatinine Glucose POC Glucose 140 H Lactic Acid Calcium Phosphorus Magnesium Iron TIBC AST ALT Alkaline Phosphatase Lactate Dehydrogenase Total Creatine Kinase C-Reactive Protein Total Protein Albumin Prealbumin CA 19-9 Antigen Folate PTH Intact Urine WBC (Auto) Urine Creatinine Urine Chloride Urine Total Protein Fluid Glucose Fluid Total Protein Vancomycin Trough Miscellaneous Test Crossmatch 06/24/18 06/24/18 06/24/18 12:27 14:20 23:43 WBC RBC Hgb Hct MCV MCHC RDW Plt Count Lymph % (Auto) [place] % (Auto) Lymph # [place] # Seg Neutrophils % Seg Neuts % (Manual) Lymphocytes % (Manual) Monocytes % (Manual) Seg Neutrophils # Seg Neutrophils # Man Lymphocytes # (Manual) Monocytes # (Manual) PT INR APTT Heparin Anti-Xa Level 0.28 L POC ABG pH POC ABG pCO2 POC ABG pO2 Sodium Potassium Chloride Carbon Dioxide BUN Creatinine Glucose POC Glucose 216 H 217 H Lactic Acid Calcium Phosphorus Magnesium Iron TIBC AST ALT Alkaline Phosphatase Lactate Dehydrogenase Total Creatine Kinase C-Reactive Protein Total Protein Albumin Prealbumin CA 19-9 Antigen Folate PTH Intact Urine WBC (Auto) Urine Creatinine Urine Chloride Urine Total Protein Fluid Glucose Fluid Total Protein Vancomycin Trough Miscellaneous Test Crossmatch 06/25/18 06/25/18 06/25/18 04:29 04:37 04:37 WBC RBC Hgb 8.1 L Hct 25.6 L MCV MCHC RDW Plt Count Lymph % (Auto) [place] % (Auto) Lymph # [place] # Seg Neutrophils % Seg Neuts % (Manual) Lymphocytes % (Manual) Monocytes % (Manual) Seg Neutrophils # Seg Neutrophils # Man Lymphocytes # (Manual) Monocytes # (Manual) PT INR APTT Heparin Anti-Xa Level POC ABG pH 7.534 H POC ABG pCO2 POC ABG pO2 161 H Sodium Potassium 2.6 L* D Chloride Carbon Dioxide 32 H BUN 75 H Creatinine 3.1 H Glucose 244 H POC Glucose Lactic Acid Calcium Phosphorus Magnesium Iron TIBC AST ALT Alkaline Phosphatase Lactate Dehydrogenase Total Creatine Kinase C-Reactive Protein Total Protein Albumin Prealbumin CA 19-9 Antigen Folate PTH Intact Urine WBC (Auto) Urine Creatinine Urine Chloride Urine Total Protein Fluid Glucose Fluid Total Protein Vancomycin Trough Miscellaneous Test Crossmatch 06/25/18 06/25/18 05:48 12:11 WBC RBC Hgb Hct MCV MCHC RDW Plt Count Lymph % (Auto) [place] % (Auto) Lymph # [place] # Seg Neutrophils % Seg Neuts % (Manual) Lymphocytes % (Manual) Monocytes % (Manual) Seg Neutrophils # Seg Neutrophils # Man Lymphocytes # (Manual) Monocytes # (Manual) PT INR APTT Heparin Anti-Xa Level POC ABG pH POC ABG pCO2 POC ABG pO2 Sodium Potassium Chloride Carbon Dioxide BUN Creatinine Glucose POC Glucose 225 H 252 H Lactic Acid Calcium Phosphorus Magnesium Iron TIBC AST ALT Alkaline Phosphatase Lactate Dehydrogenase Total Creatine Kinase C-Reactive Protein Total Protein Albumin Prealbumin CA 19-9 Antigen Folate PTH Intact Urine WBC (Auto) Urine Creatinine Urine Chloride Urine Total Protein Fluid Glucose Fluid Total Protein Vancomycin Trough Miscellaneous Test Crossmatch Chest x-ray: image reviewed Allied health notes reviewed: nursing
[2018-06-25] MEDS ORDERED: KCL 20MEQ/100ML 20 MEQ/100 ML BAG IV ONE (14:00)
[2018-06-25] MEDS ORDERED: NACL 0.9% 500 ML 500 ML IV ONE (14:02)
[2018-06-25] MEDS: LEVOPHED DRIP 4 MG/NS 250 ML 4 MG/250 ML BAG IV SCH (14:26)
--- NOTE | 2018-06-25 14:56 | Hem/Onc Progress Note ---
Assessment and Plan s/p code 06/23 -pt on vent #bowel obstruction - s/p diverting colostomy 05/26 sx notes -mentions matted mass #radiology Pelvic mass Large pelvic mass between bladder and rectum with large lymph nodes, s/p cystoscopy prostate area bx - sq cell features- anal vs lung path from ascites and pleural fluid reviewed # CT had shown bowel obstruction - s/p diverting colostomy # anemia - PRBC as needed low folate - on replacement # h/o leukocytosis on 05/22 - we will follow - likely reactive # h/o Acute kidney injury due to pelvic mass - Nephrology following. Ultrasound Kidneys showed bilat hydronephrosis CT Abd shows Pelvic mass with multiple large lymph nodes Had bilateral nephrostomy tubes placed 05/14/[address] Freeman. 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 Pt transferred to ICU has he was SOB - intubated - 06/23 06/25 - pupils dilated - neurology consulted - d/w sister reg - sq cell ca and stage IV - gave her path report of may 2018 - Patient Problems (1) Pelvic mass in male Current Visit: Yes Status: Acute Subjective Date of service: 06/25/18 Principal diagnosis: sq cell ca - prostate area Interval history: pt had diverting colostomy 05/26 had code - transferred to ICU not verbalizing - 06/25 - d/w sister Objective - Constitutional Vitals: Last Vital Signs Temp 96.3 F L 06/25/18 12:00 Pulse 53 L 06/25/18 13:45 Resp 20 06/25/18 13:45 BP 73/52 06/25/18 13:45 Pulse Ox 100 06/25/18 13:45 General appearance: other (not responding) Performance status: 4-completely disabled - EENT Lymph node exam: negative cervical, negative supraclavicular - Respiratory Respiratory: bilateral: CTA (intubated - on vent) - Cardiovascular Heart Sounds: Present: S1 & S2 Extremities: No edema - Gastrointestinal General gastrointestinal: Present: soft, other (stomy) Rectal Exam: deferred - Genitourinary Male genitourinary: Present: deferred - Neurologic Neurologic: other (pupils dilated) - Labs Lab Results: Laboratory Results - last 24 hr 06/24/18 06/24/18 06/24/18 14:20 22:20 23:43 Hgb Hct Plt Count Heparin Anti-Xa Level 0.28 L 0.49 POC ABG pH POC ABG pCO2 POC ABG pO2 POC ABG HCO3 POC ABG Total CO2 POC ABG O2 Sat POC ABG Base Excess FiO2 Sodium Potassium Chloride Carbon Dioxide Anion Gap BUN Creatinine Estimated GFR BUN/Creatinine Ratio Glucose POC Glucose 217 H Calcium Phosphorus Magnesium 06/25/18 06/25/18 06/25/18 04:29 04:37 04:37 Hgb 8.1 L Hct 25.6 L Plt Count 420 Heparin Anti-Xa Level POC ABG pH 7.534 H POC ABG pCO2 42.2 POC ABG pO2 161 H POC ABG HCO3 35.5 POC ABG Total CO2 37 POC ABG O2 Sat 100 POC ABG Base Excess 13 FiO2 45 Sodium 143 D Potassium 2.6 L* D Chloride 103.5 Carbon Dioxide 32 H Anion Gap 10 BUN 75 H Creatinine 3.1 H Estimated GFR 26 BUN/Creatinine Ratio 24 Glucose 244 H POC Glucose Calcium 8.6 Phosphorus 3.00 Magnesium 1.90 06/25/18 06/25/18 05:48 12:11 Hgb Hct Plt Count Heparin Anti-Xa Level POC ABG pH POC ABG pCO2 POC ABG pO2 POC ABG HCO3 POC ABG Total CO2 POC ABG O2 Sat POC ABG Base Excess FiO2 Sodium Potassium Chloride Carbon Dioxide Anion Gap BUN Creatinine Estimated GFR BUN/Creatinine Ratio Glucose POC Glucose 225 H 252 H Calcium Phosphorus Magnesium
--- NOTE | 2018-06-25 15:33 | Event Note ---
Date: 06/25/18 Called about hypotensive episodes X 2 No gross bleeding noted except from earlier today - 250 mls NS bolus (re: azotemia and pulmonary volume overload picture we will use conservative volume management) - begin levophed targeting MAP >/= 65 mmHg - repeat H&H stat and address as necessary - will re-evaluate in am & prn
[2018-06-25 16:18] LABS: Hematocrit 27.6 % (35.5-45.6); Hemoglobin 8.5 gm/dl (11.8-15.2)
[2018-06-25] MEDS ORDERED: TPN ADULT 2,016 ML IV SCH (20:00)
[2018-06-25 21:04] LABS: Calcium 8.3 mg/dL (8.4-10.2)
[2018-06-25] MEDS ORDERED: POTASSIUM CHLORIDE FEEDTUBE ONE (21:41)
[2018-06-26] MEDS: LOPRESSOR IV SCH ×4 (00:22→18:00)
[2018-06-26] MEDS: HumuLIN R SUB-Q SCH ×4 (00:34→18:00)
[2018-06-26] MEDS: LEVOPHED DRIP 4 MG/NS 250 ML 4 MG/250 ML BAG IV SCH ×9 (00:40→23:12)
[2018-06-26] MEDS: KCL 10MEQ/100ML 10 MEQ/100 ML BAG IV SCH (00:56)
--- NOTE | 2018-06-26 03:20 | XRay Report ---
FINAL REPORT EXAM: XR CHEST 1V AP HISTORY: follow up respiratory failure TECHNIQUE: A portable semi-upright view the chest was submitted and compared to the study of 06/25/2018. FINDINGS: The heart size is normal. The lungs remain diffusely congested with bilateral effusions. There is stable airspace disease in both lower lobes. The tip of the right-sided PICC line is in the proximal superior vena cava. The tip of the ET tube is 4.5 cm above the patience. The NG tube is coursing well into the stomach. The skeletal structures otherwise are unchanged. IMPRESSION: Stable diffuse pulmonary vascular congestion with bilateral effusions and diffuse airspace disease in the lung bases. Positions of tubes and lines as described.
[2018-06-26 04:50] LABS: Hematocrit 28.8 % (35.5-45.6); Hemoglobin 9.1 gm/dl (11.8-15.2); Mean Corpuscular HGB Conc 32 % (32-34); Mean Corpuscular Hemoglobin 29 pg (28-32); Mean Corpuscular Volume 91 fl (84-94); Platelet Count 418 K/mm3 (140-440); Red Blood Count 3.16 M/mm3 (3.65-5.03); Red Cell Distribution Width 18.2 % (13.2-15.2)
[2018-06-26] MEDS ORDERED: NACL 0.9% 500 ML 500 ML IV ONE (05:07)
[2018-06-26 05:33] LABS: Calcium 7.7 mg/dL (8.4-10.2)
[2018-06-26] MEDS: D50W (25GM) Syringe IV PRN (05:59)
[2018-06-26 06:00] LABS: Total Cells Counted 200
[2018-06-26 06:01] LABS: Anisocytosis 1+; Band Neutrophils # (Manual) 13.6 K/mm3; Basophils % (Manual) 0 % (0.0-1.8); Eosinophils % (Manual) 0 % (0.0-4.3); Nucleated Red Blood Cells 0.5 % (0.0-0.9); Platelet Estimate Consistent w Auto
[2018-06-26] MEDS: APRESOLINE FEEDTUBE SCH (06:07)
[2018-06-26] MEDS ORDERED: NACL 0.9% 250ML 250 ML IV ONE (07:01)
[2018-06-26] MEDS: Vasostrict 20 UNIT in NACL 0.9% 100 ML IV SCH ×2 (07:25→15:50)
[2018-06-26 07:42] LABS: Albumin 1.4 g/dL (3.9-5); Calcium 7.9 mg/dL (8.4-10.2)
[2018-06-26] MEDS: FOLVITE PO SCH (09:39)
[2018-06-26] MEDS: PEPCID IV SCH (09:39)
[2018-06-26] MEDS: FERROUS SULFATE PO SCH ×2 (09:39→23:15)
--- NOTE | 2018-06-26 10:12 | Progress Note ---
Hospitalist Physical - Constitutional Vitals: Temp Pulse Resp BP Pulse Ox 97.4 F L 133 H 16 97/56 94 06/26/18 04:00 06/26/18 10:00 06/26/18 10:00 06/26/18 10:00 06/26/18 10:00 General appearance: Present: no acute distress Results - Labs CBC & Chem 7: 06/26/18 04:00 06/26/18 04:00 Labs: Laboratory Last Values WBC 26.2 K/mm3 (4.5-11.0) H 06/26/18 04:00 RBC 3.16 M/mm3 (3.65-5.03) L 06/26/18 04:00 Hgb 9.1 gm/dl (11.8-15.2) L 06/26/18 04:00 Hct 28.8 % (35.5-45.6) L 06/26/18 04:00 MCV 91 fl (84-94) 06/26/18 04:00 MCH 29 pg (28-32) 06/26/18 04:00 MCHC 32 % (32-34) 06/26/18 04:00 RDW 18.2 % (13.2-15.2) H 06/26/18 04:00 Plt Count 418 K/mm3 (140-440) 06/26/18 04:00 Lymph % (Auto) 10.0 % (13.4-35.0) L 06/21/18 05:50 [place] % (Auto) 7.4 % (0.0-7.3) H 06/21/18 05:50 Eos % (Auto) 0.4 % (0.0-4.3) 06/21/18 05:50 Baso % (Auto) 0.9 % (0.0-1.8) 06/21/18 05:50 Lymph # 1.0 K/mm3 (1.2-5.4) L 06/21/18 05:50 [place] # 0.7 K/mm3 (0.0-0.8) 06/21/18 05:50 Eos # 0.0 K/mm3 (0.0-0.4) 06/21/18 05:50 Baso # 0.1 K/mm3 (0.0-0.1) 06/21/18 05:50 Add Manual Diff Complete 06/26/18 04:00 Total Counted 200 06/26/18 04:00 Seg Neutrophils % Braid Folder 06/26/18 04:00 Seg Neuts % (Manual) 44.0 % (40.0-70.0) 06/26/18 04:00 Band Neutrophils % 52.0 % 06/26/18 04:00 Lymphocytes % (Manual) 2.0 % (13.4-35.0) L 06/26/18 04:00 Reactive Lymphs % (Man) 0 % 06/26/18 04:00 Monocytes % (Manual) 1.0 % (0.0-7.3) 06/26/18 04:00 Eosinophils % (Manual) 0 % (0.0-4.3) 06/26/18 04:00 Basophils % (Manual) 0 % (0.0-1.8) 06/26/18 04:00 Metamyelocytes % 1.0 % 06/26/18 04:00 Myelocytes % 0 % 06/26/18 04:00 Promyelocytes % 0 % 06/26/18 04:00 Blast Cells % 0 % 06/26/18 04:00 Nucleated RBC % 0.5 % (0.0-0.9) 06/26/18 04:00 Seg Neutrophils # 7.9 K/mm3 (1.8-7.7) H 06/21/18 05:50 Seg Neutrophils # Man 11.5 K/mm3 (1.8-7.7) H 06/26/18 04:00 Band Neutrophils # 13.6 K/mm3 06/26/18 04:00 Lymphocytes # (Manual) 0.5 K/mm3 (1.2-5.4) L 06/26/18 04:00 Abs React Lymphs (Man) 0.0 K/mm3 06/26/18 04:00 Monocytes # (Manual) 0.3 K/mm3 (0.0-0.8) 06/26/18 04:00 Eosinophils # (Manual) 0.0 K/mm3 (0.0-0.4) 06/26/18 04:00 Basophils # (Manual) 0.0 K/mm3 (0.0-0.1) 06/26/18 04:00 Metamyelocytes # 0.3 K/mm3 06/26/18 04:00 Myelocytes # 0.0 K/mm3 06/26/18 04:00 Promyelocytes # 0.0 K/mm3 06/26/18 04:00 Blast Cells # 0.0 K/mm3 06/26/18 04:00 WBC Morphology Not Reportable 06/26/18 04:00 Hypersegmented Neuts Not Reportable 06/26/18 04:00 Hyposegmented Neuts Not Reportable 06/26/18 04:00 Hypogranular Neuts Not Reportable 06/26/18 04:00 Smudge Cells Not Reportable 06/26/18 04:00 Toxic Granulation Not Reportable 06/26/18 04:00 Toxic Vacuolation Not Reportable 06/26/18 04:00 Dohle Bodies Not Reportable 06/26/18 04:00 Pelger-Huet Anomaly Not Reportable 06/26/18 04:00 Mahesh Rods Not Reportable 06/26/18 04:00 Platelet Estimate Consistent w auto 06/26/18 04:00 Clumped Platelets Not Reportable 06/26/18 04:00 Plt Clumps, EDTA Not Reportable 06/26/18 04:00 Large Platelets Not Reportable 06/26/18 04:00 Giant Platelets Not Reportable 06/26/18 04:00 Platelet Satelliting Not Reportable 06/26/18 04:00 Plt Morphology Comment Not Reportable 06/26/18 04:00 RBC Morphology Not Reportable 06/26/18 04:00 Dimorphic RBCs Not Reportable 06/26/18 04:00 Polychromasia Not Reportable 06/26/18 04:00 Hypochromasia Not Reportable 06/26/18 04:00 Poikilocytosis Not Reportable 06/26/18 04:00 Anisocytosis 1+ 06/26/18 04:00 Microcytosis Not Reportable 06/26/18 04:00 Macrocytosis Not Reportable 06/26/18 04:00 Spherocytes Not Reportable 06/26/18 04:00 Pappenheimer Bodies Not Reportable 06/26/18 04:00 Sickle Cells Not Reportable 06/26/18 04:00 Target Cells Not Reportable 06/26/18 04:00 Tear Drop Cells Not Reportable 06/26/18 04:00 Ovalocytes Not Reportable 06/26/18 04:00 Stomatocytes 1+ 06/24/18 04:30 Helmet Cells Not Reportable 06/26/18 04:00 [place] Bodies Not Reportable 06/26/18 04:00 Ava Rings Not Reportable 06/26/18 04:00 Nory Cells Not Reportable 06/26/18 04:00 Bite Cells Not Reportable 06/26/18 04:00 Crenated Cell Not Reportable 06/26/18 04:00 Elliptocytes Not Reportable 06/26/18 04:00 Acanthocytes (Spur) Not Reportable 06/26/18 04:00 Rouleaux Not Reportable 06/26/18 04:00 Hemoglobin C Crystals Not Reportable 06/26/18 04:00 Schistocytes Not Reportable 06/26/18 04:00 Malaria parasites Not Reportable 06/26/18 04:00 Mk Bodies Not Reportable 06/26/18 04:00 Hem Pathologist Commnt No 06/26/18 04:00 PT 15.2 Sec. (12.2-14.9) H 06/23/18 08:34 INR 1.15 (0.87-1.13) H 06/23/18 08:34 APTT 41.9 Sec. (24.2-36.6) H 06/23/18 08:34 Heparin Anti-Xa Level 0.49 U.I./ml (0.3-0.7) 06/24/18 22:20 POC ABG pH 7.269 (7.35-7.45) L 06/26/18 05:59 POC ABG pCO2 68.0 (35-45) H 06/26/18 05:59 POC ABG pO2 73 (80-105) L 06/26/18 05:59 POC ABG HCO3 31.1 06/26/18 05:59 POC ABG Total CO2 33 06/26/18 05:59 POC ABG O2 Sat 91 06/26/18 05:59 POC ABG Base Excess 4 06/26/18 05:59 FiO2 40 % 06/26/18 05:59 Sodium 146 mmol/L (137-145) H 06/26/18 04:00 Potassium 3.3 mmol/L (3.6-5.0) L 06/26/18 04:00 Chloride 108.2 mmol/L (98-107) H 06/26/18 04:00 Carbon Dioxide 29 mmol/L (22-30) 06/26/18 04:00 Anion Gap 12 mmol/L 06/26/18 04:00 BUN 75 mg/dL (9-20) H 06/26/18 04:00 Creatinine 2.9 mg/dL (0.8-1.5) H 06/26/18 04:00 Estimated GFR 28 ml/min 06/26/18 04:00 BUN/Creatinine Ratio 26 % 06/26/18 04:00 Glucose 60 mg/dL (75-100) L 06/26/18 04:00 POC Glucose 130 (70-105) H 06/26/18 06:22 Hemoglobin A1c 5.7 % (4-6) 05/14/18 05:05 Lactic Acid 3.80 mmol/L (0.7-2.0) H* 05/26/18 11:00 Calcium 7.9 mg/dL (8.4-10.2) L 06/26/18 04:00 Phosphorus 3.10 mg/dL (2.5-4.5) 06/26/18 04:00 Magnesium 1.60 mg/dL (1.7-2.3) L 06/26/18 04:00 Iron 24 ug/dL (49-181) L 05/16/18 07:02 TIBC 160 mcg/dL (250-450) L 05/16/18 07:02 Ferritin 325.8 ng/mL (13.0-400.0) 05/16/18 07:02 Total Bilirubin 0.20 mg/dL (0.1-1.2) 06/26/18 04:00 AST 39 units/L (5-40) 06/26/18 04:00 ALT 26 units/L (7-56) 06/26/18 04:00 Alkaline Phosphatase 173 units/L (35-129) H 06/26/18 04:00 Lactate Dehydrogenase 297 units/L (91-180) H 06/08/18 21:36 Total Creatine Kinase 34 units/L (55-170) L 06/12/18 04:12 CK-MB (CK-2) 2.3 ng/mL (0.0-4.0) 05/25/18 22:46 CK-MB (CK-2) Rel Index 1.4 (0-4) 05/25/18 22:46 C-Reactive Protein 3.60 mg/dL (0.00-1.30) H 06/10/18 17:15 Total Protein 6.1 g/dL (6.3-8.2) L 06/26/18 04:00 Albumin 1.4 g/dL (3.9-5) L 06/26/18 04:00 Albumin/Globulin Ratio 0.3 % 06/26/18 04:00 Prealbumin 0.130 g/L (0.200-0.400) L 06/17/18 05:52 Triglycerides 56 mg/dL (2-149) 06/19/18 06:20 CA 19-9 Antigen 57 U/mL (<34) H 06/08/18 21:43 Prostate Specific Ag 0.96 ng/mL (0.00-4.00) 05/14/18 13:29 Free PSA See scanned result 06/08/18 21:44 % Free PSA Calc See scanned result 06/08/18 21:44 Total PSA See scanned result 06/08/18 21:44 Vitamin B12 359.2 pg/mL (211-911) 05/16/18 07:02 Folate 5.39 ng/mL (7.3-26.0) L 05/16/18 07:02 TSH 3.180 mlU/mL (0.270-4.200) 05/14/18 05:05 PTH Intact 65.37 pg/mL (15-65) H 05/14/18 05:05 Urine Color Yellow (Yellow) 06/24/18 00:30 Urine Turbidity Cloudy (Clear) 06/24/18 00:30 Urine pH 5.0 (5.0-7.0) 06/24/18 00:30 Ur Specific [place] 1.014 (1.003-1.030) 06/24/18 00:30 Urine Protein 100 mg/dl mg/dL (Negative) 06/24/18 00:30 Urine Glucose (UA) Neg mg/dL (Negative) 06/24/18 00:30 Urine Ketones Neg mg/dL (Negative) 06/24/18 00:30 Urine Blood Mod (Negative) 06/24/18 00:30 Urine Nitrite Neg (Negative) 06/24/18 00:30 Urine Bilirubin Neg (Negative) 06/24/18 00:30 Urine Urobilinogen < 2.0 mg/dL (<2.0) 06/24/18 00:30 Ur Leukocyte Esterase Tr (Negative) 06/24/18 00:30 Urine WBC (Auto) 8.0 /HPF (0.0-6.0) H 06/24/18 00:30 Urine RBC (Auto) 57.0 /HPF (0.0-6.0) 06/24/18 00:30 U Epithel Cells (Auto) 1.0 /HPF (0-13.0) 06/11/18 07:41 Urine Bacteria (Auto) 1+ /HPF (Negative) 06/24/18 00:30 Urine WBC Clumps Few /HPF 05/13/18 19:39 Amorphous Crystals 2+ 06/24/18 00:30 Urine Mucus Few /HPF 06/11/18 07:41 Ur Yeast w Hyphae Few /HPF 06/11/18 07:41 Urine Yeast (Bud[place]) 3+ /HPF 06/24/18 00:30 Urine Creatinine 99.7 mg/dL (0.1-20.0) H 06/23/18 00:30 Urine Sodium Not Reportable 06/23/18 00:30 Urine Potassium 32.11 mmol/L 06/23/18 00:30 Urine Chloride 10.0 mmolL (110-250) L 06/23/18 00:30 Urine Total Protein 272 mg/dL (5-11.8) H 06/23/18 00:30 Fluid Type Ascitic 06/03/18 Unknown Fluid Color Yellow 06/03/18 Unknown Fluid Appearance Cloudy 06/03/18 Unknown Fluid WBC 50999 /mm3 06/03/18 Unknown Fluid RBC 9 /mm3 06/03/18 Unknown Fluid Seg Neutrophils 98.0 % 06/03/18 Unknown Fluid Lymphocytes 2.0 % 06/03/18 Unknown Fluid Reactive Lymphs 0 % 06/03/18 Unknown Fluid Monocytes 0 % 06/03/18 Unknown Fluid Eosinophils 0 % 06/03/18 Unknown Fluid Basophils 0 % 06/03/18 Unknown Fluid Glucose 10 mg/dL (40-70) L 06/03/18 Unknown Fluid Total Protein 3.7 (15.0-45.0) L 06/03/18 Unknown Fluid Albumin 0.8 g/dL 06/03/18 Unknown Fluid LDH > 63299 06/03/18 Unknown Fluid Amylase 126 06/03/18 Unknown Vancomycin Trough 25.1 ug/mL (5.0-20.0) H 05/25/18 22:46 Random Vancomycin 34.3 ug/mL (0-40.0) 05/26/18 11:01 Urine Opiates Screen Presumptive negative 06/23/18 00:30 Urine Methadone Screen Presumptive negative 06/23/18 00:30 Ur Barbiturates Screen Presumptive negative 06/23/18 00:30 Ur Phencyclidine Scrn Presumptive negative 06/23/18 00:30 Ur Amphetamines Screen Presumptive negative 06/23/18 00:30 U Benzodiazepines Scrn Presumptive negative 06/23/18 00:30 Urine Cocaine Screen Presumptive negative 06/23/18 00:30 U Marijuana (THC) Screen Presumptive negative 06/23/18 00:30 Drugs of Abuse Note Disclamer 06/23/18 00:30 ZEUS Screen Negative (Negative) 05/14/18 05:05 Proteinase 3 (PR3) Ab <1.0 AI (<1.0) 05/14/18 05:05 Myeloperoxidase Ab <1.0 AI (<1.0) 05/14/18 05:05 Complement C3 147 mg/dL (82-185) 05/14/18 05:05 Complement C4 45 mg/dL (15-53) 05/14/18 05:05 Hepatitis A IgM Ab Nonreactive (NonReactive) 05/27/18 13:41 Hep Bs Antigen Non-reactive (Negative) 05/27/18 13:41 Hep B Core IgM Ab Non-reactive (NonReactive) 05/27/18 13:41 Hepatitis C Antibody Non-reactive (NonReactive) 05/27/18 13:41 Miscellaneous Test Flexitest 1 H 06/09/18 07:37 Blood Type O POSITIVE 06/23/18 09:40 Antibody Screen Negative 06/23/18 09:40 Crossmatch See Detail 06/23/18 09:40
--- NOTE | 2018-06-26 11:45 | Progress Note ---
Assessment and Plan 1. Acute kidney injury: Initial MARYLOU in the setting of bilateral hydronephrosis secondary to pelvic mass , now s/p bilateral nephrostomy. Recurrent Acute kidney injury likely ATN. Patient was on hemodialysis until 06/02/18. Creatinine leveled off. BP remains low. No acute indication for dialysis. 2. Electrolytes: Replete K. 3. Hypotension: On Levophed and Vasopressin. 4. Bowel obstruction: S/p colostomy. 5. Bilateral hydronephrosis: Secondary to pelvic mass. S/p bilateral nephrostomy. 6. Respiratory failure: On vent. 7. S/p PEA. 8. Anemia. 9. 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 Subjective Date of service: 06/26/18 Principal diagnosis: sq cell ca - prostate area Interval history: Patient was seen and examined at the bedside. Objective - Vital Signs Vital signs: Vital Signs - 12hr 06/25/18 06/25/18 06/26/18 23:45 23:58 00:00 Temperature 97.1 F L Pulse Rate 85 86 87 Pulse Rate [ 91 H From Monitor] Respiratory 20 20 20 Rate Blood Pressure 89/58 91/62 88/60 O2 Sat by Pulse 100 100 100 Oximetry 06/26/18 06/26/18 06/26/18 00:15 00:22 00:30 Temperature Pulse Rate 86 89 89 Pulse Rate [ From Monitor] Respiratory 20 20 Rate Blood Pressure 85/58 85/58 85/50 O2 Sat by Pulse 100 99 Oximetry 06/26/18 06/26/18 06/26/18 00:45 01:00 01:15 Temperature Pulse Rate 90 91 H 92 H Pulse Rate [ From Monitor] Respiratory 20 20 20 Rate Blood Pressure 94/63 93/63 90/63 O2 Sat by Pulse 99 99 99 Oximetry 06/26/18 06/26/18 06/26/18 01:30 01:45 02:00 Temperature Pulse Rate 93 H 93 H 95 H Pulse Rate [ From Monitor] Respiratory 20 20 20 Rate Blood Pressure 87/60 82/57 95/64 O2 Sat by Pulse 98 99 99 Oximetry 06/26/18 06/26/18 06/26/18 02:15 02:30 02:45 Temperature Pulse Rate 96 H 96 H 100 H Pulse Rate [ From Monitor] Respiratory 20 20 20 Rate Blood Pressure 91/63 90/61 84/56 O2 Sat by Pulse 99 99 97 Oximetry 06/26/18 06/26/18 06/26/18 03:00 03:15 03:30 Temperature Pulse Rate 100 H 101 H 102 H Pulse Rate [ From Monitor] Respiratory 17 12 20 Rate Blood Pressure 87/59 80/54 85/58 O2 Sat by Pulse 97 96 96 Oximetry 06/26/18 06/26/18 06/26/18 03:45 04:00 04:15 Temperature 97.4 F L Pulse Rate 102 H 104 H 105 H Pulse Rate [ 108 H From Monitor] Respiratory 13 20 20 Rate Blood Pressure 83/55 85/59 82/53 O2 Sat by Pulse 95 96 93 Oximetry 06/26/18 06/26/18 06/26/18 04:30 04:45 05:00 Temperature Pulse Rate 107 H 108 H 112 H Pulse Rate [ From Monitor] Respiratory 19 20 6 L Rate Blood Pressure 83/57 82/53 85/53 O2 Sat by Pulse 93 92 90 Oximetry 06/26/18 06/26/18 06/26/18 05:15 05:30 05:44 Temperature Pulse Rate 112 H 113 H 114 H Pulse Rate [ From Monitor] Respiratory 20 20 Rate Blood Pressure 84/50 83/55 82/52 O2 Sat by Pulse 94 96 95 Oximetry 06/26/18 06/26/18 06/26/18 05:45 06:00 06:07 Temperature Pulse Rate 114 H 115 H 117 H Pulse Rate [ From Monitor] Respiratory 20 20 Rate Blood Pressure 82/52 86/54 86/54 O2 Sat by Pulse 95 93 Oximetry 06/26/18 06/26/18 06/26/18 06:15 06:30 06:45 Temperature Pulse Rate 118 H 119 H 121 H Pulse Rate [ From Monitor] Respiratory 20 20 20 Rate Blood Pressure 90/53 81/48 77/47 O2 Sat by Pulse 92 90 89 Oximetry 06/26/18 06/26/18 06/26/18 07:00 07:15 07:30 Temperature Pulse Rate 124 H 125 H 123 H Pulse Rate [ From Monitor] Respiratory 24 24 23 Rate Blood Pressure 75/49 79/50 66/42 O2 Sat by Pulse 96 95 95 Oximetry 06/26/18 06/26/18 06/26/18 07:45 08:00 08:15 Temperature 99.1 F Pulse Rate 132 H 133 H 133 H Pulse Rate [ 132 H From Monitor] Respiratory 24 24 24 Rate Blood Pressure 104/67 104/68 104/69 O2 Sat by Pulse 97 96 96 Oximetry 06/26/18 06/26/18 06/26/18 08:30 08:45 09:00 Temperature Pulse Rate 134 H 133 H 135 H Pulse Rate [ From Monitor] Respiratory 21 10 L 21 Rate Blood Pressure 101/68 97/56 110/65 O2 Sat by Pulse 96 95 95 Oximetry 06/26/18 06/26/18 06/26/18 09:15 09:30 09:45 Temperature Pulse Rate 134 H 134 H 134 H Pulse Rate [ From Monitor] Respiratory 24 24 24 Rate Blood Pressure 109/66 98/64 104/65 O2 Sat by Pulse 95 95 94 Oximetry 06/26/18 10:00 Temperature Pulse Rate 133 H Pulse Rate [ From Monitor] Respiratory 16 Rate Blood Pressure 97/56 O2 Sat by Pulse 94 Oximetry - General Appearance General appearance: well-developed, appears stated age, intubated, other (on vent) EENT: ATNC Neck: supple Respiratory: Present: Other (coarse breath sounds) Cardiology: regular, tachycardia, S1S2 Gastrointestinal: normoactive bowel sounds, other (bilateral nephrostomy, ostomy and drain noted) Neurologic: obtunded, other (pupils are not reacting) Musculoskeletal: other (no edema) - Lab 06/26/18 04:00 06/26/18 04:00 Most recent lab results Calcium 7.9 mg/dL (8.4-10.2) L 06/26/18 04:00 Phosphorus 3.10 mg/dL (2.5-4.5) 06/26/18 04:00 Magnesium 1.60 mg/dL (1.7-2.3) L 06/26/18 04:00 Urine Creatinine 99.7 mg/dL (0.1-20.0) H 06/23/18 00:30 Urine Sodium Not Reportable 06/23/18 00:30 Urine Total Protein 272 mg/dL (5-11.8) H 06/23/18 00:30
[2018-06-26] MEDS ORDERED: POTASSIUM CHLORIDE FEEDTUBE ONE (11:46)
[2018-06-26] MEDS ORDERED: MAGNESIUM SULFATE 2GM/50ML 2 GM/50 ML BAG IV ONE (12:45)
--- NOTE | 2018-06-26 14:24 | Progress Note ---
Assessment and Plan Acute hypoxemic respiratory failure Bilateral pneumonia, possibly aspiration. Sepsis syndrome. 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 Acute deep venous thrombosis. Hypertensive urgency. Hyperkalemia, now resolved. Moderate to severe protein calorie malnutrition Hypernatremia. Hypokalemia Hypochloremia. Anemia, normocytic. (ABLA) (Discussed at length with siblings; real possibility of brain ; asked family to seriously contemplate palliative care taking overall co-morbidities into consideration - they will discuss amongst themselves but want him to remain a full code for now) - continue full support but set rate incresaed to 24/min re: respiratory acidosis component - replaced potasium orally today (total 40 meq) - magnesium also replaced - VAP bundle addressed - complete neurologic w/up - consider NM brain flow scan if no clinical improvement next 24-48 hours - holding anticoagulation due to ABLA - continue supplemental oxygen to keep sats > 90% - repeat thoracentesis if clinically improves as may be futile procedure - optimize cardiac function - continue bronchodilators with pulmonary hygiene per RT - continue aspiration precautions - HD/UF for toxin and volume clearance per nephrology prescription (s/p vascath placement) - follow clinically off AB's - continue TPN for now (enteral nutrition once cleared by surgery) - Malignancy per heme-oncologist - continue mobility protocol for pressure ulcer prophylaxis - s/p surgery 05/26 (had ex-lap; matted abdominal organs, pus) - s/p bilateral nephrostomy tubes placed 05/14/[address] Freeman. - continue other care per attending / other consultants - prn paracentesis - continue other care per attending / other consultants .... discharge planning ongoing concurrently ... re-evaluate in am & prn The high probability of a clinically significant, sudden or life threatening deterioration of the [respiratory,cardiac, urologic and renal] system(s) required my full and direct attention, intervention and personal management. The aggregate critical care time was [55] minutes without overlap. Time includes spent on; [x] Data Review and interpretation [x] Patient assessment and monitoring of vital signs [x] Documentation [x] Medication orders and management Subjective Date of service: 06/26/18 Principal diagnosis: Acute Hypoxemic Resp Failure; Sepsis Syndrome; Acute VTE; Prostate Cancer Interval history: Patient is seen today for: Acute Hypoxemic Resp Failure; Sepsis Syndrome; Acute VTE; Prostate Cancer Seen and examined at bedside; 24hour events reviewed; nursing and respiratory care staff consulted; no adverse overnight events reported to me; resting peacefully in bed; AMS is persistent; no emesis or overt aspiration; siblings in room and had an extensive discussion with them with RN present regarding goals of care and dire situation/poor prognosis; no gross bleeding reported and no seizure activity; now on levophed and vasopressin Objective Vital Signs - 12hr 06/26/18 06/26/18 06/26/18 02:30 02:45 03:00 Temperature Pulse Rate 96 H 100 H 100 H Pulse Rate [ From Monitor] Respiratory 20 20 17 Rate Blood Pressure 90/61 84/56 87/59 O2 Sat by Pulse 99 97 97 Oximetry 06/26/18 06/26/18 06/26/18 03:15 03:30 03:45 Temperature Pulse Rate 101 H 102 H 102 H Pulse Rate [ From Monitor] Respiratory 12 20 13 Rate Blood Pressure 80/54 85/58 83/55 O2 Sat by Pulse 96 96 95 Oximetry 06/26/18 06/26/18 06/26/18 04:00 04:15 04:30 Temperature 97.4 F L Pulse Rate 104 H 105 H 107 H Pulse Rate [ 108 H From Monitor] Respiratory 20 20 19 Rate Blood Pressure 85/59 82/53 83/57 O2 Sat by Pulse 96 93 93 Oximetry 06/26/18 06/26/18 06/26/18 04:45 05:00 05:15 Temperature Pulse Rate 108 H 112 H 112 H Pulse Rate [ From Monitor] Respiratory 20 6 L 20 Rate Blood Pressure 82/53 85/53 84/50 O2 Sat by Pulse 92 90 94 Oximetry 06/26/18 06/26/18 06/26/18 05:30 05:44 05:45 Temperature Pulse Rate 113 H 114 H 114 H Pulse Rate [ From Monitor] Respiratory 20 20 Rate Blood Pressure 83/55 82/52 82/52 O2 Sat by Pulse 96 95 95 Oximetry 06/26/18 06/26/18 06/26/18 06:00 06:07 06:15 Temperature Pulse Rate 115 H 117 H 118 H Pulse Rate [ From Monitor] Respiratory 20 20 Rate Blood Pressure 86/54 86/54 90/53 O2 Sat by Pulse 93 92 Oximetry 06/26/18 06/26/18 06/26/18 06:30 06:45 07:00 Temperature Pulse Rate 119 H 121 H 124 H Pulse Rate [ From Monitor] Respiratory 20 20 24 Rate Blood Pressure 81/48 77/47 75/49 O2 Sat by Pulse 90 89 96 Oximetry 06/26/18 06/26/18 06/26/18 07:15 07:30 07:45 Temperature Pulse Rate 125 H 123 H 132 H Pulse Rate [ From Monitor] Respiratory 24 23 24 Rate Blood Pressure 79/50 66/42 104/67 O2 Sat by Pulse 95 95 97 Oximetry 06/26/18 06/26/18 06/26/18 08:00 08:15 08:30 Temperature 99.1 F Pulse Rate 133 H 133 H 134 H Pulse Rate [ 132 H From Monitor] Respiratory 24 24 21 Rate Blood Pressure 104/68 104/69 101/68 O2 Sat by Pulse 96 96 96 Oximetry 06/26/18 06/26/18 06/26/18 08:45 09:00 09:15 Temperature Pulse Rate 133 H 135 H 134 H Pulse Rate [ From Monitor] Respiratory 10 L 21 24 Rate Blood Pressure 97/56 110/65 109/66 O2 Sat by Pulse 95 95 95 Oximetry 06/26/18 06/26/18 06/26/18 09:30 09:45 10:00 Temperature Pulse Rate 134 H 134 H 133 H Pulse Rate [ From Monitor] Respiratory 24 24 16 Rate Blood Pressure 98/64 104/65 97/56 O2 Sat by Pulse 95 94 94 Oximetry 06/26/18 06/26/18 06/26/18 10:15 10:30 10:45 Temperature Pulse Rate 133 H 133 H 134 H Pulse Rate [ From Monitor] Respiratory 13 21 24 Rate Blood Pressure 94/62 95/62 95/64 O2 Sat by Pulse 94 94 93 Oximetry 06/26/18 06/26/18 06/26/18 11:00 11:15 11:30 Temperature Pulse Rate 133 H 133 H 133 H Pulse Rate [ From Monitor] Respiratory 14 15 21 Rate Blood Pressure 103/64 97/61 92/60 O2 Sat by Pulse 93 93 93 Oximetry 06/26/18 06/26/18 06/26/18 11:45 12:00 12:09 Temperature Pulse Rate 133 H 131 H 133 H Pulse Rate [ From Monitor] Respiratory 24 Rate Blood Pressure 94/61 90/57 90/60 O2 Sat by Pulse 93 94 Oximetry 06/26/18 13:28 Temperature 98.2 F Pulse Rate Pulse Rate [ From Monitor] Respiratory Rate Blood Pressure O2 Sat by Pulse Oximetry Constitutional: no acute distress, other (chronically ill looking middle aged AAM, normocephalic and atraumatic, ) Eyes: non-icteric ENT: oropharynx moist, other (ETT 23 cm BEATRIS) Neck: supple, no lymphadenopathy, no JVD, other (no thyromegaly) Effort: normal (riding set ventilator rate) Ascultation: Bilateral: diminished breath sounds (bases), rhonchi (scant in bases) Percussion: Bilateral: dull (bases) Cardiovascular: regular rate and rhythm, other (No R/M) Gastrointestinal: hypoactive bowel sounds, soft, tender (mild), non-distended, other (Distended; No palpable HSM, bilateral nephrostomy tubes,Colostomy, ZAKI drain) Integumentary: other (femoral vascath) Extremities: no cyanosis, no edema, pulses normal, no ischemia or petechiae Neurologic: other (obtunded) Psychiatric: other (Obtunded) CBC and BMP: 06/26/18 04:00 06/26/18 04:00 ABG, PT/INR, D-dimer: ABG POC ABG pH 7.269 (7.35-7.45) L 06/26/18 05:59 POC ABG pCO2 68.0 (35-45) H 06/26/18 05:59 POC ABG pO2 73 (80-105) L 06/26/18 05:59 POC ABG HCO3 31.1 06/26/18 05:59 POC ABG Total CO2 33 06/26/18 05:59 POC ABG O2 Sat 91 06/26/18 05:59 PT/INR, D-dimer PT 15.2 Sec. (12.2-14.9) H 06/23/18 08:34 INR 1.15 (0.87-1.13) H 06/23/18 08:34 Abnormal lab findings: Abnormal Labs 05/13/18 05/13/18 05/13/18 04:27 04:27 19:39 WBC RBC 3.13 L Hgb 9.4 L Hct 26.8 L MCV MCHC 35 H RDW Plt Count Lymph % (Auto) [place] % (Auto) 9.6 H Lymph # [place] # Seg Neutrophils % Seg Neuts % (Manual) Lymphocytes % (Manual) Monocytes % (Manual) Seg Neutrophils # Seg Neutrophils # Man Lymphocytes # (Manual) Monocytes # (Manual) PT INR APTT Heparin Anti-Xa Level POC ABG pH POC ABG pCO2 POC ABG pO2 Sodium 132 L Potassium 5.5 H Chloride 94.1 L Carbon Dioxide 19 L BUN 72 H Creatinine 14.4 H Glucose POC Glucose Lactic Acid Calcium Phosphorus Magnesium Iron TIBC AST ALT Alkaline Phosphatase Lactate Dehydrogenase Total Creatine Kinase C-Reactive Protein Total Protein Albumin 2.8 L Prealbumin CA 19-9 Antigen Folate PTH Intact Urine WBC (Auto) Urine Creatinine 66.0 H Urine Chloride 27.8 L Urine Total Protein 24 H Fluid Glucose Fluid Total Protein Vancomycin Trough Miscellaneous Test Crossmatch 05/13/18 05/14/18 05/14/18 20:00 05:05 05:05 WBC RBC Hgb Hct MCV MCHC RDW Plt Count Lymph % (Auto) [place] % (Auto) Lymph # [place] # Seg Neutrophils % Seg Neuts % (Manual) Lymphocytes % (Manual) Monocytes % (Manual) Seg Neutrophils # Seg Neutrophils # Man Lymphocytes # (Manual) Monocytes # (Manual) PT INR APTT Heparin Anti-Xa Level POC ABG pH POC ABG pCO2 POC ABG pO2 Sodium 132 L 131 L Potassium 5.2 H 5.8 H Chloride 93.0 L 95.6 L Carbon Dioxide 19 L 20 L BUN 74 H 81 H Creatinine 15.0 H 16.6 H Glucose 134 H 127 H POC Glucose Lactic Acid Calcium 8.2 L 7.9 L Phosphorus 6.30 H Magnesium Iron TIBC AST ALT Alkaline Phosphatase Lactate Dehydrogenase Total Creatine Kinase 236 H C-Reactive Protein Total Protein Albumin Prealbumin CA 19-9 Antigen Folate PTH Intact 65.37 H Urine WBC (Auto) Urine Creatinine Urine Chloride Urine Total Protein Fluid Glucose Fluid Total Protein Vancomycin Trough Miscellaneous Test Crossmatch 05/14/18 05/14/18 05/14/18 09:28 10:56 13:29 WBC RBC Hgb Hct MCV MCHC RDW Plt Count Lymph % (Auto) [place] % (Auto) Lymph # [place] # Seg Neutrophils % Seg Neuts % (Manual) Lymphocytes % (Manual) Monocytes % (Manual) Seg Neutrophils # Seg Neutrophils # Man Lymphocytes # (Manual) Monocytes # (Manual) PT INR APTT 38.2 H Heparin Anti-Xa Level POC ABG pH POC ABG pCO2 POC ABG pO2 Sodium Potassium Chloride Carbon Dioxide BUN Creatinine Glucose POC Glucose 127 H 126 H Lactic Acid Calcium Phosphorus Magnesium Iron TIBC AST ALT Alkaline Phosphatase Lactate Dehydrogenase Total Creatine Kinase C-Reactive Protein Total Protein Albumin Prealbumin CA 19-9 Antigen Folate PTH Intact Urine WBC (Auto) Urine Creatinine Urine Chloride Urine Total Protein Fluid Glucose Fluid Total Protein Vancomycin Trough Miscellaneous Test Crossmatch 05/15/18 05/15/18 05/16/18 08:06 08:06 07:02 WBC RBC 2.84 L 2.74 L Hgb 8.5 L 8.5 L Hct 24.2 L 23.5 L MCV MCHC 35 H 36 H RDW Plt Count Lymph % (Auto) [place] % (Auto) 10.4 H 11.0 H Lymph # 1.1 L [place] # 0.9 H Seg Neutrophils % 72.6 H Seg Neuts % (Manual) Lymphocytes % (Manual) Monocytes % (Manual) Seg Neutrophils # Seg Neutrophils # Man Lymphocytes # (Manual) Monocytes # (Manual) PT INR APTT Heparin Anti-Xa Level POC ABG pH POC ABG pCO2 POC ABG pO2 Sodium Potassium Chloride Carbon Dioxide 19 L BUN 66 H Creatinine 12.0 H Glucose 115 H POC Glucose Lactic Acid Calcium 8.1 L Phosphorus Magnesium Iron TIBC AST ALT Alkaline Phosphatase Lactate Dehydrogenase Total Creatine Kinase C-Reactive Protein Total Protein Albumin Prealbumin CA 19-9 Antigen Folate PTH Intact Urine WBC (Auto) Urine Creatinine Urine Chloride Urine Total Protein Fluid Glucose Fluid Total Protein Vancomycin Trough Miscellaneous Test Crossmatch 05/16/18 05/16/18 05/17/18 07:02 07:02 05:08 WBC RBC 2.78 L Hgb 8.2 L Hct 23.9 L MCV MCHC RDW Plt Count Lymph % (Auto) [place] % (Auto) 13.9 H Lymph # [place] # 0.9 H Seg Neutrophils % Seg Neuts % (Manual) Lymphocytes % (Manual) Monocytes % (Manual) Seg Neutrophils # Seg Neutrophils # Man Lymphocytes # (Manual) Monocytes # (Manual) PT INR APTT Heparin Anti-Xa Level POC ABG pH POC ABG pCO2 POC ABG pO2 Sodium Potassium Chloride Carbon Dioxide BUN 28 H Creatinine 2.4 H D Glucose POC Glucose Lactic Acid Calcium 8.3 L Phosphorus Magnesium 1.50 L Iron 24 L TIBC 160 L AST ALT Alkaline Phosphatase Lactate Dehydrogenase Total Creatine Kinase C-Reactive Protein Total Protein Albumin Prealbumin CA 19-9 Antigen Folate 5.39 L PTH Intact Urine WBC (Auto) Urine Creatinine Urine Chloride Urine Total Protein Fluid Glucose Fluid Total Protein Vancomycin Trough Miscellaneous Test Crossmatch 05/17/18 05/18/18 05/18/18 05:08 05:57 05:57 WBC RBC 2.79 L Hgb 8.3 L Hct 24.0 L MCV MCHC 35 H RDW Plt Count Lymph % (Auto) [place] % (Auto) 11.8 H Lymph # [place] # 0.9 H Seg Neutrophils % Seg Neuts % (Manual) Lymphocytes % (Manual) Monocytes % (Manual) Seg Neutrophils # Seg Neutrophils # Man Lymphocytes # (Manual) Monocytes # (Manual) PT INR APTT Heparin Anti-Xa Level POC ABG pH POC ABG pCO2 POC ABG pO2 Sodium Potassium Chloride Carbon Dioxide BUN Creatinine Glucose POC Glucose Lactic Acid Calcium 7.7 L 8.0 L Phosphorus Magnesium 1.60 L Iron TIBC AST ALT Alkaline Phosphatase Lactate Dehydrogenase Total Creatine Kinase C-Reactive Protein Total Protein Albumin Prealbumin CA 19-9 Antigen Folate PTH Intact Urine WBC (Auto) Urine Creatinine Urine Chloride Urine Total Protein Fluid Glucose Fluid Total Protein Vancomycin Trough Miscellaneous Test Crossmatch 05/19/18 05/19/18 05/20/18 05:33 05:33 05:38 WBC RBC 2.95 L Hgb 8.8 L Hct 25.8 L MCV MCHC RDW Plt Count Lymph % (Auto) 10.1 L [place] % (Auto) Lymph # 1.1 L [place] # Seg Neutrophils % 85.2 H Seg Neuts % (Manual) Lymphocytes % (Manual) Monocytes % (Manual) Seg Neutrophils # 9.0 H Seg Neutrophils # Man Lymphocytes # (Manual) Monocytes # (Manual) PT INR APTT Heparin Anti-Xa Level POC ABG pH POC ABG pCO2 POC ABG pO2 Sodium 135 L Potassium Chloride Carbon Dioxide BUN Creatinine Glucose 132 H POC Glucose Lactic Acid Calcium 7.8 L 8.3 L Phosphorus Magnesium 1.40 L Iron TIBC AST ALT Alkaline Phosphatase Lactate Dehydrogenase Total Creatine Kinase C-Reactive Protein Total Protein Albumin Prealbumin CA 19-9 Antigen Folate PTH Intact Urine WBC (Auto) Urine Creatinine Urine Chloride Urine Total Protein Fluid Glucose Fluid Total Protein Vancomycin Trough Miscellaneous Test Crossmatch 05/21/18 05/21/18 05/22/18 04:46 15:30 06:49 WBC 20.0 H RBC 2.70 L Hgb 7.8 L Hct 23.3 L MCV MCHC RDW Plt Count Lymph % (Auto) [place] % (Auto) Lymph # [place] # Seg Neutrophils % Seg Neuts % (Manual) 85.0 H Lymphocytes % (Manual) 4.0 L Monocytes % (Manual) Seg Neutrophils # Seg Neutrophils # Man 17.0 H Lymphocytes # (Manual) 0.8 L Monocytes # (Manual) PT INR APTT Heparin Anti-Xa Level POC ABG pH POC ABG pCO2 POC ABG pO2 Sodium 135 L Potassium 3.5 L Chloride Carbon Dioxide 21 L BUN 22 H Creatinine Glucose POC Glucose Lactic Acid Calcium 8.1 L Phosphorus Magnesium Iron TIBC AST ALT Alkaline Phosphatase Lactate Dehydrogenase Total Creatine Kinase C-Reactive Protein Total Protein Albumin Prealbumin CA 19-9 Antigen Folate PTH Intact Urine WBC (Auto) 28.0 H Urine Creatinine Urine Chloride Urine Total Protein Fluid Glucose Fluid Total Protein Vancomycin Trough Miscellaneous Test Crossmatch 05/22/18 05/22/18 05/23/18 06:49 11:23 09:03 WBC RBC Hgb Hct MCV MCHC RDW Plt Count Lymph % (Auto) [place] % (Auto) Lymph # [place] # Seg Neutrophils % Seg Neuts % (Manual) Lymphocytes % (Manual) Monocytes % (Manual) Seg Neutrophils # Seg Neutrophils # Man Lymphocytes # (Manual) Monocytes # (Manual) PT INR APTT Heparin Anti-Xa Level POC ABG pH POC ABG pCO2 POC ABG pO2 Sodium 134 L Potassium 3.5 L Chloride Carbon Dioxide 21 L BUN 35 H 36 H Creatinine 1.7 H Glucose 107 H POC Glucose Lactic Acid Calcium 7.9 L Phosphorus Magnesium 2.50 H Iron TIBC AST ALT Alkaline Phosphatase Lactate Dehydrogenase Total Creatine Kinase C-Reactive Protein Total Protein Albumin Prealbumin CA 19-9 Antigen Folate PTH Intact Urine WBC (Auto) Urine Creatinine Urine Chloride Urine Total Protein Fluid Glucose Fluid Total Protein Vancomycin Trough Miscellaneous Test Crossmatch See Detail 05/23/18 05/23/18 05/23/18 09:03 09:03 17:34 WBC 26.3 H RBC 3.57 L Hgb 10.4 L Hct 31.1 L D MCV MCHC RDW Plt Count Lymph % (Auto) [place] % (Auto) Lymph # [place] # Seg Neutrophils % Seg Neuts % (Manual) Lymphocytes % (Manual) Monocytes % (Manual) Seg Neutrophils # Seg Neutrophils # Man Lymphocytes # (Manual) Monocytes # (Manual) PT 18.3 H INR 1.43 H APTT 40.0 H Heparin Anti-Xa Level POC ABG pH POC ABG pCO2 POC ABG pO2 Sodium Potassium Chloride Carbon Dioxide BUN Creatinine Glucose POC Glucose 108 H Lactic Acid Calcium Phosphorus Magnesium Iron TIBC AST ALT Alkaline Phosphatase Lactate Dehydrogenase Total Creatine Kinase C-Reactive Protein Total Protein Albumin Prealbumin CA 19-9 Antigen Folate PTH Intact Urine WBC (Auto) Urine Creatinine Urine Chloride Urine Total Protein Fluid Glucose Fluid Total Protein Vancomycin Trough Miscellaneous Test Crossmatch 05/23/18 05/24/18 05/24/18 21:14 04:43 08:04 WBC RBC Hgb Hct MCV MCHC RDW Plt Count Lymph % (Auto) [place] % (Auto) Lymph # [place] # Seg Neutrophils % Seg Neuts % (Manual) Lymphocytes % (Manual) Monocytes % (Manual) Seg Neutrophils # Seg Neutrophils # Man Lymphocytes # (Manual) Monocytes # (Manual) PT INR APTT Heparin Anti-Xa Level POC ABG pH POC ABG pCO2 POC ABG pO2 Sodium 146 H Potassium Chloride 108.6 H Carbon Dioxide BUN 33 H Creatinine Glucose 109 H POC Glucose 110 H 106 H Lactic Acid Calcium 8.3 L Phosphorus Magnesium 2.50 H Iron TIBC AST ALT Alkaline Phosphatase Lactate Dehydrogenase Total Creatine Kinase C-Reactive Protein Total Protein Albumin Prealbumin CA 19-9 Antigen Folate PTH Intact Urine WBC (Auto) Urine Creatinine Urine Chloride Urine Total Protein Fluid Glucose Fluid Total Protein Vancomycin Trough Miscellaneous Test Crossmatch 05/25/18 05/25/18 05/25/18 05:42 05:49 19:50 WBC RBC Hgb Hct MCV MCHC RDW Plt Count Lymph % (Auto) [place] % (Auto) Lymph # [place] # Seg Neutrophils % Seg Neuts % (Manual) Lymphocytes % (Manual) Monocytes % (Manual) Seg Neutrophils # Seg Neutrophils # Man Lymphocytes # (Manual) Monocytes # (Manual) PT INR APTT Heparin Anti-Xa Level POC ABG pH POC ABG pCO2 POC ABG pO2 Sodium 150 H Potassium Chloride 112.5 H Carbon Dioxide BUN 34 H Creatinine Glucose 102 H POC Glucose 107 H Lactic Acid Calcium Phosphorus Magnesium Iron TIBC AST ALT Alkaline Phosphatase Lactate Dehydrogenase Total Creatine Kinase C-Reactive Protein 34.50 H Total Protein Albumin Prealbumin CA 19-9 Antigen Folate PTH Intact Urine WBC (Auto) Urine Creatinine Urine Chloride Urine Total Protein Fluid Glucose Fluid Total Protein Vancomycin Trough Miscellaneous Test Crossmatch 05/25/18 05/25/18 05/25/18 19:50 21:05 22:46 WBC RBC Hgb Hct MCV MCHC RDW Plt Count Lymph % (Auto) [place] % (Auto) Lymph # [place] # Seg Neutrophils % Seg Neuts % (Manual) Lymphocytes % (Manual) Monocytes % (Manual) Seg Neutrophils # Seg Neutrophils # Man Lymphocytes # (Manual) Monocytes # (Manual) PT INR APTT Heparin Anti-Xa Level POC ABG pH 7.483 H POC ABG pCO2 24.0 L POC ABG pO2 72 L Sodium Potassium Chloride Carbon Dioxide BUN Creatinine Glucose POC Glucose Lactic Acid 5.90 H* Calcium Phosphorus Magnesium Iron TIBC AST ALT Alkaline Phosphatase Lactate Dehydrogenase Total Creatine Kinase C-Reactive Protein Total Protein Albumin Prealbumin CA 19-9 Antigen Folate PTH Intact Urine WBC (Auto) Urine Creatinine Urine Chloride Urine Total Protein Fluid Glucose Fluid Total Protein Vancomycin Trough 25.1 H Miscellaneous Test Crossmatch 05/25/18 05/26/18 05/26/18 22:46 00:21 00:51 WBC RBC Hgb Hct MCV MCHC RDW Plt Count Lymph % (Auto) [place] % (Auto) Lymph # [place] # Seg Neutrophils % Seg Neuts % (Manual) Lymphocytes % (Manual) Monocytes % (Manual) Seg Neutrophils # Seg Neutrophils # Man Lymphocytes # (Manual) Monocytes # (Manual) PT INR APTT Heparin Anti-Xa Level POC ABG pH POC ABG pCO2 POC ABG pO2 Sodium Potassium Chloride Carbon Dioxide BUN Creatinine Glucose POC Glucose 133 H Lactic Acid 8.10 H* 6.20 H* Calcium Phosphorus Magnesium Iron TIBC AST ALT Alkaline Phosphatase Lactate Dehydrogenase Total Creatine Kinase C-Reactive Protein Total Protein Albumin Prealbumin CA 19-9 Antigen Folate PTH Intact Urine WBC (Auto) Urine Creatinine Urine Chloride Urine Total Protein Fluid Glucose Fluid Total Protein Vancomycin Trough Miscellaneous Test Crossmatch 05/26/18 05/26/18 05/26/18 01:13 02:24 02:24 WBC 18.7 H RBC Hgb 11.6 L Hct MCV MCHC RDW Plt Count Lymph % (Auto) [place] % (Auto) Lymph # [place] # Seg Neutrophils % Seg Neuts % (Manual) Lymphocytes % (Manual) Monocytes % (Manual) Seg Neutrophils # Seg Neutrophils # Man Lymphocytes # (Manual) Monocytes # (Manual) PT INR APTT Heparin Anti-Xa Level POC ABG pH POC ABG pCO2 POC ABG pO2 Sodium 147 H Potassium 6.2 H* D Chloride 111.9 H Carbon Dioxide 19 L BUN 80 H Creatinine 5.1 H D Glucose 112 H POC Glucose Lactic Acid 5.20 H* Calcium 6.7 L D Phosphorus Magnesium Iron TIBC AST ALT Alkaline Phosphatase Lactate Dehydrogenase Total Creatine Kinase C-Reactive Protein Total Protein Albumin Prealbumin CA 19-9 Antigen Folate PTH Intact Urine WBC (Auto) Urine Creatinine Urine Chloride Urine Total Protein Fluid Glucose Fluid Total Protein Vancomycin Trough Miscellaneous Test Crossmatch 05/26/18 05/26/18 05/26/18 04:20 04:20 05:39 WBC RBC Hgb Hct MCV MCHC RDW Plt Count Lymph % (Auto) [place] % (Auto) Lymph # [place] # Seg Neutrophils % Seg Neuts % (Manual) Lymphocytes % (Manual) Monocytes % (Manual) Seg Neutrophils # Seg Neutrophils # Man Lymphocytes # (Manual) Monocytes # (Manual) PT INR APTT Heparin Anti-Xa Level POC ABG pH POC ABG pCO2 POC ABG pO2 Sodium 150 H Potassium Chloride 110.0 H Carbon Dioxide 19 L BUN 66 H Creatinine Glucose 166 H POC Glucose 187 H Lactic Acid 5.10 H* Calcium 6.9 L Phosphorus 6.70 H D Magnesium Iron TIBC AST ALT Alkaline Phosphatase Lactate Dehydrogenase Total Creatine Kinase C-Reactive Protein Total Protein Albumin Prealbumin CA 19-9 Antigen Folate PTH Intact Urine WBC (Auto) Urine Creatinine Urine Chloride Urine Total Protein Fluid Glucose Fluid Total Protein Vancomycin Trough Miscellaneous Test Crossmatch 05/26/18 05/26/18 05/26/18 06:02 07:29 11:00 WBC RBC Hgb Hct MCV MCHC RDW Plt Count Lymph % (Auto) [place] % (Auto) Lymph # [place] # Seg Neutrophils % Seg Neuts % (Manual) Lymphocytes % (Manual) Monocytes % (Manual) Seg Neutrophils # Seg Neutrophils # Man Lymphocytes # (Manual) Monocytes # (Manual) PT INR APTT Heparin Anti-Xa Level POC ABG pH POC ABG pCO2 28.8 L POC ABG pO2 Sodium Potassium Chloride Carbon Dioxide BUN Creatinine Glucose POC Glucose Lactic Acid 4.80 H* 3.80 H* Calcium Phosphorus Magnesium Iron TIBC AST ALT Alkaline Phosphatase Lactate Dehydrogenase Total Creatine Kinase C-Reactive Protein Total Protein Albumin Prealbumin CA 19-9 Antigen Folate PTH Intact Urine WBC (Auto) Urine Creatinine Urine Chloride Urine Total Protein Fluid Glucose Fluid Total Protein Vancomycin Trough Miscellaneous Test Crossmatch 05/26/18 05/26/18 05/26/18 11:01 12:28 18:00 WBC RBC Hgb Hct MCV MCHC RDW Plt Count Lymph % (Auto) [place] % (Auto) Lymph # [place] # Seg Neutrophils % Seg Neuts % (Manual) Lymphocytes % (Manual) Monocytes % (Manual) Seg Neutrophils # Seg Neutrophils # Man Lymphocytes # (Manual) Monocytes # (Manual) PT INR APTT Heparin Anti-Xa Level POC ABG pH POC ABG pCO2 POC ABG pO2 Sodium 150 H 151 H Potassium 5.3 H D 6.1 H* Chloride 110.3 H 117.0 H Carbon Dioxide 21 L 20 L BUN 75 H 77 H Creatinine 4.3 H D 4.6 H Glucose 161 H POC Glucose 114 H Lactic Acid Calcium 7.5 L 6.7 L Phosphorus Magnesium Iron TIBC AST 1041 H ALT 406 H Alkaline Phosphatase 281 H Lactate Dehydrogenase Total Creatine Kinase C-Reactive Protein Total Protein 4.4 L Albumin 1.3 L Prealbumin CA 19-9 Antigen Folate PTH Intact Urine WBC (Auto) Urine Creatinine Urine Chloride Urine Total Protein Fluid Glucose Fluid Total Protein Vancomycin Trough Miscellaneous Test Crossmatch 05/26/18 05/26/18 05/27/18 18:02 19:17 01:01 WBC 21.7 H RBC 2.70 L Hgb 7.8 L D Hct 24.6 L D MCV MCHC RDW 15.3 H Plt Count Lymph % (Auto) [place] % (Auto) Lymph # [place] # Seg Neutrophils % Seg Neuts % (Manual) 94.0 H Lymphocytes % (Manual) 3.0 L Monocytes % (Manual) Seg Neutrophils # Seg Neutrophils # Man 20.4 H Lymphocytes # (Manual) 0.7 L Monocytes # (Manual) PT INR APTT Heparin Anti-Xa Level POC ABG pH 7.159 L 7.205 L POC ABG pCO2 54.5 H 53.0 H POC ABG pO2 252 H Sodium Potassium Chloride Carbon Dioxide BUN Creatinine Glucose POC Glucose Lactic Acid Calcium Phosphorus Magnesium Iron TIBC AST ALT Alkaline Phosphatase Lactate Dehydrogenase Total Creatine Kinase C-Reactive Protein Total Protein Albumin Prealbumin CA 19-9 Antigen Folate PTH Intact Urine WBC (Auto) Urine Creatinine Urine Chloride Urine Total Protein Fluid Glucose Fluid Total Protein Vancomycin Trough Miscellaneous Test Crossmatch 05/27/18 05/27/18 05/27/18 05:15 05:15 06:11 WBC 24.9 H RBC 2.86 L Hgb 8.1 L Hct 25.9 L MCV MCHC RDW 15.5 H Plt Count Lymph % (Auto) [place] % (Auto) Lymph # [place] # Seg Neutrophils % Seg Neuts % (Manual) Lymphocytes % (Manual) Monocytes % (Manual) Seg Neutrophils # Seg Neutrophils # Man Lymphocytes # (Manual) Monocytes # (Manual) PT INR APTT Heparin Anti-Xa Level POC ABG pH 7.265 L POC ABG pCO2 46.2 H POC ABG pO2 111 H Sodium 149 H Potassium 6.9 H* Chloride 113.5 H Carbon Dioxide BUN 89 H Creatinine 5.2 H Glucose 118 H POC Glucose Lactic Acid Calcium 7.0 L Phosphorus 9.70 H D Magnesium Iron TIBC AST 876 H ALT 408 H Alkaline Phosphatase Lactate Dehydrogenase Total Creatine Kinase C-Reactive Protein Total Protein 5.2 L Albumin 1.5 L Prealbumin CA 19-9 Antigen Folate PTH Intact Urine WBC (Auto) Urine Creatinine Urine Chloride Urine Total Protein Fluid Glucose Fluid Total Protein Vancomycin Trough Miscellaneous Test Crossmatch 05/27/18 05/27/18 05/27/18 08:48 10:22 10:22 WBC RBC Hgb Hct MCV MCHC RDW Plt Count Lymph % (Auto) [place] % (Auto) Lymph # [place] # Seg Neutrophils % Seg Neuts % (Manual) Lymphocytes % (Manual) Monocytes % (Manual) Seg Neutrophils # Seg Neutrophils # Man Lymphocytes # (Manual) Monocytes # (Manual) PT INR APTT Heparin Anti-Xa Level POC ABG pH POC ABG pCO2 POC ABG pO2 Sodium 146 H Potassium 6.1 H* Chloride 108.2 H Carbon Dioxide 21 L BUN 88 H Creatinine 5.6 H Glucose 163 H POC Glucose 164 H Lactic Acid Calcium 6.7 L Phosphorus Magnesium Iron TIBC AST ALT Alkaline Phosphatase Lactate Dehydrogenase Total Creatine Kinase C-Reactive Protein 40.70 H Total Protein Albumin Prealbumin CA 19-9 Antigen Folate PTH Intact Urine WBC (Auto) Urine Creatinine Urine Chloride Urine Total Protein Fluid Glucose Fluid Total Protein Vancomycin Trough Miscellaneous Test Crossmatch 05/27/18 05/27/18 05/27/18 13:02 17:39 23:27 WBC RBC Hgb Hct MCV MCHC RDW Plt Count Lymph % (Auto) [place] % (Auto) Lymph # [place] # Seg Neutrophils % Seg Neuts % (Manual) Lymphocytes % (Manual) Monocytes % (Manual) Seg Neutrophils # Seg Neutrophils # Man Lymphocytes # (Manual) Monocytes # (Manual) PT INR APTT Heparin Anti-Xa Level POC ABG pH POC ABG pCO2 POC ABG pO2 Sodium Potassium Chloride Carbon Dioxide BUN Creatinine Glucose POC Glucose 59 L 132 H Lactic Acid Calcium Phosphorus Magnesium Iron TIBC AST ALT Alkaline Phosphatase Lactate Dehydrogenase Total Creatine Kinase C-Reactive Protein Total Protein Albumin Prealbumin CA 19-9 Antigen Folate PTH Intact Urine WBC (Auto) Urine Creatinine Urine Chloride Urine Total Protein Fluid Glucose Fluid Total Protein Vancomycin Trough Miscellaneous Test Flexitest 1 H Crossmatch 05/27/18 05/28/18 05/28/18 Unknown 04:32 05:00 WBC RBC Hgb Hct MCV MCHC RDW Plt Count Lymph % (Auto) [place] % (Auto) Lymph # [place] # Seg Neutrophils % Seg Neuts % (Manual) Lymphocytes % (Manual) Monocytes % (Manual) Seg Neutrophils # Seg Neutrophils # Man Lymphocytes # (Manual) Monocytes # (Manual) PT INR APTT Heparin Anti-Xa Level POC ABG pH POC ABG pCO2 POC ABG pO2 134 H Sodium Potassium Chloride Carbon Dioxide BUN 69 H Creatinine 4.4 H Glucose 118 H POC Glucose Lactic Acid Calcium 8.0 L D Phosphorus 6.80 H D Magnesium Iron TIBC AST ALT Alkaline Phosphatase Lactate Dehydrogenase Total Creatine Kinase C-Reactive Protein Total Protein Albumin Prealbumin CA 19-9 Antigen Folate PTH Intact Urine WBC (Auto) 120.0 H Urine Creatinine Urine Chloride Urine Total Protein Fluid Glucose Fluid Total Protein Vancomycin Trough Miscellaneous Test Crossmatch 05/28/18 05/28/18 05/28/18 05:00 05:27 13:04 WBC 26.5 H RBC 2.69 L Hgb 7.7 L Hct 23.6 L MCV MCHC RDW Plt Count Lymph % (Auto) [place] % (Auto) Lymph # [place] # Seg Neutrophils % Seg Neuts % (Manual) 96.0 H Lymphocytes % (Manual) 0 L Monocytes % (Manual) Seg Neutrophils # Seg Neutrophils # Man 25.4 H Lymphocytes # (Manual) 0.0 L Monocytes # (Manual) PT INR APTT Heparin Anti-Xa Level POC ABG pH POC ABG pCO2 POC ABG pO2 Sodium Potassium Chloride Carbon Dioxide BUN Creatinine Glucose POC Glucose 128 H 155 H Lactic Acid Calcium Phosphorus Magnesium Iron TIBC AST ALT Alkaline Phosphatase Lactate Dehydrogenase Total Creatine Kinase C-Reactive Protein Total Protein Albumin Prealbumin CA 19-9 Antigen Folate PTH Intact Urine WBC (Auto) Urine Creatinine Urine Chloride Urine Total Protein Fluid Glucose Fluid Total Protein Vancomycin Trough Miscellaneous Test Crossmatch 05/28/18 05/29/18 05/29/18 17:56 03:35 04:00 WBC RBC Hgb Hct MCV MCHC RDW Plt Count Lymph % (Auto) [place] % (Auto) Lymph # [place] # Seg Neutrophils % Seg Neuts % (Manual) Lymphocytes % (Manual) Monocytes % (Manual) Seg Neutrophils # Seg Neutrophils # Man Lymphocytes # (Manual) Monocytes # (Manual) PT INR APTT Heparin Anti-Xa Level POC ABG pH 7.471 H POC ABG pCO2 POC ABG pO2 78 L Sodium Potassium Chloride Carbon Dioxide BUN 50 H Creatinine 3.9 H Glucose POC Glucose 110 H Lactic Acid Calcium 7.7 L Phosphorus Magnesium 1.50 L Iron TIBC AST 218 H ALT 204 H Alkaline Phosphatase Lactate Dehydrogenase Total Creatine Kinase C-Reactive Protein Total Protein 5.4 L Albumin 1.6 L Prealbumin CA 19-9 Antigen Folate PTH Intact Urine WBC (Auto) Urine Creatinine Urine Chloride Urine Total Protein Fluid Glucose Fluid Total Protein Vancomycin Trough Miscellaneous Test Crossmatch 05/29/18 05/29/18 05/30/18 11:51 23:56 04:54 WBC RBC Hgb Hct MCV MCHC RDW Plt Count Lymph % (Auto) [place] % (Auto) Lymph # [place] # Seg Neutrophils % Seg Neuts % (Manual) Lymphocytes % (Manual) Monocytes % (Manual) Seg Neutrophils # Seg Neutrophils # Man Lymphocytes # (Manual) Monocytes # (Manual) PT INR APTT Heparin Anti-Xa Level POC ABG pH POC ABG pCO2 POC ABG pO2 Sodium Potassium Chloride Carbon Dioxide BUN Creatinine Glucose POC Glucose 131 H 119 H 115 H Lactic Acid Calcium Phosphorus Magnesium Iron TIBC AST ALT Alkaline Phosphatase Lactate Dehydrogenase Total Creatine Kinase C-Reactive Protein Total Protein Albumin Prealbumin CA 19-9 Antigen Folate PTH Intact Urine WBC (Auto) Urine Creatinine Urine Chloride Urine Total Protein Fluid Glucose Fluid Total Protein Vancomycin Trough Miscellaneous Test Crossmatch 05/30/18 05/30/18 05/30/18 05:07 05:15 05:15 WBC 16.2 H RBC 2.53 L Hgb 7.4 L Hct 21.9 L MCV MCHC RDW Plt Count Lymph % (Auto) [place] % (Auto) Lymph # [place] # Seg Neutrophils % Seg Neuts % (Manual) Lymphocytes % (Manual) Monocytes % (Manual) Seg Neutrophils # Seg Neutrophils # Man Lymphocytes # (Manual) Monocytes # (Manual) PT INR APTT Heparin Anti-Xa Level POC ABG pH POC ABG pCO2 34.5 L POC ABG pO2 133 H Sodium 135 L Potassium Chloride 97.5 L Carbon Dioxide BUN 69 H Creatinine 5.4 H Glucose 105 H POC Glucose Lactic Acid Calcium 7.5 L Phosphorus 5.30 H D Magnesium Iron TIBC AST ALT Alkaline Phosphatase Lactate Dehydrogenase Total Creatine Kinase C-Reactive Protein Total Protein Albumin Prealbumin CA 19-9 Antigen Folate PTH Intact Urine WBC (Auto) Urine Creatinine Urine Chloride Urine Total Protein Fluid Glucose Fluid Total Protein Vancomycin Trough Miscellaneous Test Crossmatch 05/30/18 05/30/18 05/31/18 12:13 17:10 04:50 WBC 18.7 H RBC 2.86 L Hgb 8.2 L Hct 24.8 L MCV MCHC RDW Plt Count Lymph % (Auto) [place] % (Auto) Lymph # [place] # Seg Neutrophils % Seg Neuts % (Manual) 91.0 H Lymphocytes % (Manual) 2.0 L Monocytes % (Manual) Seg Neutrophils # Seg Neutrophils # Man 17.0 H Lymphocytes # (Manual) 0.4 L Monocytes # (Manual) PT INR APTT Heparin Anti-Xa Level POC ABG pH POC ABG pCO2 POC ABG pO2 Sodium Potassium Chloride Carbon Dioxide BUN Creatinine Glucose POC Glucose 132 H 122 H Lactic Acid Calcium Phosphorus Magnesium Iron TIBC AST ALT Alkaline Phosphatase Lactate Dehydrogenase Total Creatine Kinase C-Reactive Protein Total Protein Albumin Prealbumin CA 19-9 Antigen Folate PTH Intact Urine WBC (Auto) Urine Creatinine Urine Chloride Urine Total Protein Fluid Glucose Fluid Total Protein Vancomycin Trough Miscellaneous Test Crossmatch 05/31/18 05/31/18 05/31/18 04:50 05:45 11:37 WBC RBC Hgb Hct MCV MCHC RDW Plt Count Lymph % (Auto) [place] % (Auto) Lymph # [place] # Seg Neutrophils % Seg Neuts % (Manual) Lymphocytes % (Manual) Monocytes % (Manual) Seg Neutrophils # Seg Neutrophils # Man Lymphocytes # (Manual) Monocytes # (Manual) PT INR APTT Heparin Anti-Xa Level POC ABG pH POC ABG pCO2 POC ABG pO2 Sodium 132 L Potassium Chloride 92.4 L Carbon Dioxide BUN 77 H Creatinine 5.9 H Glucose POC Glucose 111 H 136 H Lactic Acid Calcium 7.3 L Phosphorus 6.40 H D Magnesium Iron TIBC AST ALT Alkaline Phosphatase Lactate Dehydrogenase Total Creatine Kinase C-Reactive Protein Total Protein Albumin Prealbumin CA 19-9 Antigen Folate PTH Intact Urine WBC (Auto) Urine Creatinine Urine Chloride Urine Total Protein Fluid Glucose Fluid Total Protein Vancomycin Trough Miscellaneous Test Crossmatch 05/31/18 06/01/18 06/01/18 17:52 00:09 04:00 WBC RBC Hgb Hct MCV MCHC RDW Plt Count Lymph % (Auto) [place] % (Auto) Lymph # [place] # Seg Neutrophils % Seg Neuts % (Manual) Lymphocytes % (Manual) Monocytes % (Manual) Seg Neutrophils # Seg Neutrophils # Man Lymphocytes # (Manual) Monocytes # (Manual) PT INR APTT Heparin Anti-Xa Level POC ABG pH POC ABG pCO2 POC ABG pO2 Sodium Potassium Chloride 97.5 L Carbon Dioxide BUN 49 H Creatinine 4.2 H Glucose 104 H POC Glucose 115 H 114 H Lactic Acid Calcium 7.3 L Phosphorus 4.70 H D Magnesium Iron TIBC AST ALT Alkaline Phosphatase Lactate Dehydrogenase Total Creatine Kinase C-Reactive Protein Total Protein Albumin Prealbumin CA 19-9 Antigen Folate PTH Intact Urine WBC (Auto) Urine Creatinine Urine Chloride Urine Total Protein Fluid Glucose Fluid Total Protein Vancomycin Trough Miscellaneous Test Crossmatch 06/01/18 06/01/18 06/02/18 11:10 17:56 00:15 WBC RBC Hgb Hct MCV MCHC RDW Plt Count Lymph % (Auto) [place] % (Auto) Lymph # [place] # Seg Neutrophils % Seg Neuts % (Manual) Lymphocytes % (Manual) Monocytes % (Manual) Seg Neutrophils # Seg Neutrophils # Man Lymphocytes # (Manual) Monocytes # (Manual) PT INR APTT Heparin Anti-Xa Level POC ABG pH POC ABG pCO2 POC ABG pO2 Sodium Potassium Chloride Carbon Dioxide BUN Creatinine Glucose POC Glucose 123 H 126 H 135 H Lactic Acid Calcium Phosphorus Magnesium Iron TIBC AST ALT Alkaline Phosphatase Lactate Dehydrogenase Total Creatine Kinase C-Reactive Protein Total Protein Albumin Prealbumin CA 19-9 Antigen Folate PTH Intact Urine WBC (Auto) Urine Creatinine Urine Chloride Urine Total Protein Fluid Glucose Fluid Total Protein Vancomycin Trough Miscellaneous Test Crossmatch 06/02/18 06/02/18 06/02/18 05:23 12:42 13:05 WBC RBC Hgb Hct MCV MCHC RDW Plt Count Lymph % (Auto) [place] % (Auto) Lymph # [place] # Seg Neutrophils % Seg Neuts % (Manual) Lymphocytes % (Manual) Monocytes % (Manual) Seg Neutrophils # Seg Neutrophils # Man Lymphocytes # (Manual) Monocytes # (Manual) PT 17.1 H INR 1.34 H APTT Heparin Anti-Xa Level POC ABG pH POC ABG pCO2 POC ABG pO2 Sodium Potassium Chloride Carbon Dioxide BUN Creatinine Glucose POC Glucose 135 H 142 H Lactic Acid Calcium Phosphorus Magnesium Iron TIBC AST ALT Alkaline Phosphatase Lactate Dehydrogenase Total Creatine Kinase C-Reactive Protein Total Protein Albumin Prealbumin CA 19-9 Antigen Folate PTH Intact Urine WBC (Auto) Urine Creatinine Urine Chloride Urine Total Protein Fluid Glucose Fluid Total Protein Vancomycin Trough Miscellaneous Test Crossmatch 06/02/18 06/02/18 06/03/18 Unknown Unknown 00:54 WBC 20.8 H RBC 2.67 L Hgb 7.7 L Hct 23.0 L MCV MCHC RDW Plt Count 500 H Lymph % (Auto) [place] % (Auto) Lymph # [place] # Seg Neutrophils % Seg Neuts % (Manual) Lymphocytes % (Manual) Monocytes % (Manual) Seg Neutrophils # Seg Neutrophils # Man Lymphocytes # (Manual) Monocytes # (Manual) PT INR APTT Heparin Anti-Xa Level POC ABG pH POC ABG pCO2 POC ABG pO2 Sodium 136 L Potassium 3.5 L Chloride 96.9 L Carbon Dioxide BUN 62 H Creatinine 4.9 H Glucose 133 H POC Glucose 125 H Lactic Acid Calcium 7.2 L Phosphorus 5.00 H Magnesium Iron TIBC AST 46 H ALT 66 H Alkaline Phosphatase Lactate Dehydrogenase Total Creatine Kinase C-Reactive Protein Total Protein 5.7 L Albumin 1.5 L Prealbumin CA 19-9 Antigen Folate PTH Intact Urine WBC (Auto) Urine Creatinine Urine Chloride Urine Total Protein Fluid Glucose Fluid Total Protein Vancomycin Trough Miscellaneous Test Crossmatch 06/03/18 06/03/18 06/03/18 03:31 09:18 09:18 WBC RBC Hgb Hct MCV MCHC RDW Plt Count Lymph % (Auto) [place] % (Auto) Lymph # [place] # Seg Neutrophils % Seg Neuts % (Manual) Lymphocytes % (Manual) Monocytes % (Manual) Seg Neutrophils # Seg Neutrophils # Man Lymphocytes # (Manual) Monocytes # (Manual) PT 17.1 H INR 1.34 H APTT Heparin Anti-Xa Level POC ABG pH POC ABG pCO2 POC ABG pO2 Sodium 136 L Potassium Chloride Carbon Dioxide BUN 41 H Creatinine 3.4 H Glucose 129 H POC Glucose Lactic Acid Calcium 7.4 L Phosphorus Magnesium Iron TIBC AST ALT Alkaline Phosphatase Lactate Dehydrogenase Total Creatine Kinase C-Reactive Protein 11.10 H Total Protein Albumin Prealbumin CA 19-9 Antigen Folate PTH Intact Urine WBC (Auto) Urine Creatinine Urine Chloride Urine Total Protein Fluid Glucose Fluid Total Protein Vancomycin Trough Miscellaneous Test Crossmatch 06/03/18 06/03/18 06/03/18 16:07 21:18 Unknown WBC RBC Hgb Hct MCV MCHC RDW Plt Count Lymph % (Auto) [place] % (Auto) Lymph # [place] # Seg Neutrophils % Seg Neuts % (Manual) Lymphocytes % (Manual) Monocytes % (Manual) Seg Neutrophils # Seg Neutrophils # Man Lymphocytes # (Manual) Monocytes # (Manual) PT INR APTT Heparin Anti-Xa Level POC ABG pH POC ABG pCO2 POC ABG pO2 Sodium Potassium Chloride Carbon Dioxide BUN Creatinine Glucose POC Glucose 144 H 128 H Lactic Acid Calcium Phosphorus Magnesium Iron TIBC AST ALT Alkaline Phosphatase Lactate Dehydrogenase Total Creatine Kinase C-Reactive Protein Total Protein Albumin Prealbumin CA 19-9 Antigen Folate PTH Intact Urine WBC (Auto) Urine Creatinine Urine Chloride Urine Total Protein Fluid Glucose 10 L Fluid Total Protein 3.7 L Vancomycin Trough Miscellaneous Test Crossmatch 06/04/18 06/04/18 06/04/18 04:31 06:14 11:38 WBC RBC Hgb Hct MCV MCHC RDW Plt Count Lymph % (Auto) [place] % (Auto) Lymph # [place] # Seg Neutrophils % Seg Neuts % (Manual) Lymphocytes % (Manual) Monocytes % (Manual) Seg Neutrophils # Seg Neutrophils # Man Lymphocytes # (Manual) Monocytes # (Manual) PT INR APTT Heparin Anti-Xa Level POC ABG pH POC ABG pCO2 POC ABG pO2 Sodium Potassium Chloride Carbon Dioxide BUN 55 H Creatinine 3.7 H Glucose 151 H POC Glucose 145 H 129 H Lactic Acid Calcium 7.8 L Phosphorus 4.60 H Magnesium Iron TIBC AST ALT Alkaline Phosphatase Lactate Dehydrogenase Total Creatine Kinase C-Reactive Protein Total Protein Albumin Prealbumin CA 19-9 Antigen Folate PTH Intact Urine WBC (Auto) Urine Creatinine Urine Chloride Urine Total Protein Fluid Glucose Fluid Total Protein Vancomycin Trough Miscellaneous Test Crossmatch 06/04/18 06/04/18 06/04/18 17:09 20:00 21:29 WBC RBC Hgb 8.8 L Hct 27.3 L MCV MCHC RDW Plt Count Lymph % (Auto) [place] % (Auto) Lymph # [place] # Seg Neutrophils % Seg Neuts % (Manual) Lymphocytes % (Manual) Monocytes % (Manual) Seg Neutrophils # Seg Neutrophils # Man Lymphocytes # (Manual) Monocytes # (Manual) PT INR APTT Heparin Anti-Xa Level POC ABG pH POC ABG pCO2 POC ABG pO2 Sodium Potassium Chloride Carbon Dioxide BUN Creatinine Glucose POC Glucose 142 H 130 H Lactic Acid Calcium Phosphorus Magnesium Iron TIBC AST ALT Alkaline Phosphatase Lactate Dehydrogenase Total Creatine Kinase C-Reactive Protein Total Protein Albumin Prealbumin CA 19-9 Antigen Folate PTH Intact Urine WBC (Auto) Urine Creatinine Urine Chloride Urine Total Protein Fluid Glucose Fluid Total Protein Vancomycin Trough Miscellaneous Test Crossmatch 06/05/18 06/05/18 06/05/18 06:30 07:00 07:00 WBC 19.3 H RBC 2.94 L Hgb 8.3 L Hct 25.6 L MCV MCHC RDW 15.7 H Plt Count 568 H Lymph % (Auto) 4.7 L [place] % (Auto) Lymph # 0.9 L [place] # 1.1 H Seg Neutrophils % 88.9 H Seg Neuts % (Manual) Lymphocytes % (Manual) Monocytes % (Manual) Seg Neutrophils # 17.2 H Seg Neutrophils # Man Lymphocytes # (Manual) Monocytes # (Manual) PT INR APTT Heparin Anti-Xa Level POC ABG pH POC ABG pCO2 POC ABG pO2 Sodium Potassium 3.4 L D Chloride Carbon Dioxide BUN 67 H Creatinine 3.6 H Glucose 145 H POC Glucose 153 H Lactic Acid Calcium 7.9 L Phosphorus 4.60 H Magnesium Iron TIBC AST ALT Alkaline Phosphatase Lactate Dehydrogenase Total Creatine Kinase C-Reactive Protein Total Protein Albumin Prealbumin CA 19-9 Antigen Folate PTH Intact Urine WBC (Auto) Urine Creatinine Urine Chloride Urine Total Protein Fluid Glucose Fluid Total Protein Vancomycin Trough Miscellaneous Test Crossmatch 06/05/18 06/05/18 06/06/18 12:10 16:01 06:39 WBC RBC Hgb Hct MCV MCHC RDW Plt Count Lymph % (Auto) [place] % (Auto) Lymph # [place] # Seg Neutrophils % Seg Neuts % (Manual) Lymphocytes % (Manual) Monocytes % (Manual) Seg Neutrophils # Seg Neutrophils # Man Lymphocytes # (Manual) Monocytes # (Manual) PT INR APTT Heparin Anti-Xa Level POC ABG pH POC ABG pCO2 POC ABG pO2 Sodium Potassium Chloride Carbon Dioxide BUN Creatinine Glucose POC Glucose 150 H 129 H 131 H Lactic Acid Calcium Phosphorus Magnesium Iron TIBC AST ALT Alkaline Phosphatase Lactate Dehydrogenase Total Creatine Kinase C-Reactive Protein Total Protein Albumin Prealbumin CA 19-9 Antigen Folate PTH Intact Urine WBC (Auto) Urine Creatinine Urine Chloride Urine Total Protein Fluid Glucose Fluid Total Protein Vancomycin Trough Miscellaneous Test Crossmatch 06/06/18 06/06/18 06/06/18 07:14 07:14 07:14 WBC 16.5 H RBC 2.84 L Hgb 8.1 L Hct 25.2 L MCV MCHC RDW 16.4 H Plt Count 526 H Lymph % (Auto) 6.5 L [place] % (Auto) Lymph # 1.1 L [place] # 1.2 H Seg Neutrophils % 85.3 H Seg Neuts % (Manual) Lymphocytes % (Manual) Monocytes % (Manual) Seg Neutrophils # 14.1 H Seg Neutrophils # Man Lymphocytes # (Manual) Monocytes # (Manual) PT INR APTT Heparin Anti-Xa Level POC ABG pH POC ABG pCO2 POC ABG pO2 Sodium Potassium Chloride 109.1 H Carbon Dioxide 21 L BUN 76 H Creatinine 3.5 H Glucose 111 H POC Glucose Lactic Acid Calcium 8.1 L Phosphorus Magnesium Iron TIBC AST ALT Alkaline Phosphatase Lactate Dehydrogenase Total Creatine Kinase C-Reactive Protein 4.70 H Total Protein Albumin Prealbumin CA 19-9 Antigen Folate PTH Intact Urine WBC (Auto) Urine Creatinine Urine Chloride Urine Total Protein Fluid Glucose Fluid Total Protein Vancomycin Trough Miscellaneous Test Crossmatch 06/06/18 06/06/18 06/06/18 11:15 18:00 23:58 WBC RBC Hgb Hct MCV MCHC RDW Plt Count Lymph % (Auto) [place] % (Auto) Lymph # [place] # Seg Neutrophils % Seg Neuts % (Manual) Lymphocytes % (Manual) Monocytes % (Manual) Seg Neutrophils # Seg Neutrophils # Man Lymphocytes # (Manual) Monocytes # (Manual) PT INR APTT Heparin Anti-Xa Level POC ABG pH POC ABG pCO2 POC ABG pO2 Sodium Potassium Chloride Carbon Dioxide BUN Creatinine Glucose POC Glucose 127 H 130 H 114 H Lactic Acid Calcium Phosphorus Magnesium Iron TIBC AST ALT Alkaline Phosphatase Lactate Dehydrogenase Total Creatine Kinase C-Reactive Protein Total Protein Albumin Prealbumin CA 19-9 Antigen Folate PTH Intact Urine WBC (Auto) Urine Creatinine Urine Chloride Urine Total Protein Fluid Glucose Fluid Total Protein Vancomycin Trough Miscellaneous Test Crossmatch 06/07/18 06/07/18 06/07/18 05:45 05:45 05:54 WBC 15.5 H RBC 2.60 L Hgb 7.4 L Hct 23.1 L MCV MCHC RDW 16.5 H Plt Count 506 H Lymph % (Auto) 5.3 L [place] % (Auto) Lymph # 0.8 L [place] # 1.0 H Seg Neutrophils % 86.6 H Seg Neuts % (Manual) Lymphocytes % (Manual) Monocytes % (Manual) Seg Neutrophils # 13.4 H Seg Neutrophils # Man Lymphocytes # (Manual) Monocytes # (Manual) PT INR APTT Heparin Anti-Xa Level POC ABG pH POC ABG pCO2 POC ABG pO2 Sodium Potassium Chloride 108.4 H Carbon Dioxide BUN 84 H Creatinine 3.5 H Glucose 119 H POC Glucose 114 H Lactic Acid Calcium 8.1 L Phosphorus 5.10 H Magnesium Iron TIBC AST ALT Alkaline Phosphatase Lactate Dehydrogenase Total Creatine Kinase C-Reactive Protein Total Protein Albumin Prealbumin CA 19-9 Antigen Folate PTH Intact Urine WBC (Auto) Urine Creatinine Urine Chloride Urine Total Protein Fluid Glucose Fluid Total Protein Vancomycin Trough Miscellaneous Test Crossmatch 06/07/18 06/08/18 06/08/18 12:15 05:05 05:24 WBC RBC Hgb Hct MCV MCHC RDW Plt Count Lymph % (Auto) [place] % (Auto) Lymph # [place] # Seg Neutrophils % Seg Neuts % (Manual) Lymphocytes % (Manual) Monocytes % (Manual) Seg Neutrophils # Seg Neutrophils # Man Lymphocytes # (Manual) Monocytes # (Manual) PT INR APTT Heparin Anti-Xa Level POC ABG pH POC ABG pCO2 POC ABG pO2 Sodium 148 H Potassium Chloride 112.4 H Carbon Dioxide BUN 89 H Creatinine 3.4 H Glucose 120 H POC Glucose 148 H 115 H Lactic Acid Calcium 7.9 L Phosphorus Magnesium Iron TIBC AST ALT Alkaline Phosphatase Lactate Dehydrogenase Total Creatine Kinase C-Reactive Protein Total Protein Albumin Prealbumin CA 19-9 Antigen Folate PTH Intact Urine WBC (Auto) Urine Creatinine Urine Chloride Urine Total Protein Fluid Glucose Fluid Total Protein Vancomycin Trough Miscellaneous Test Crossmatch 06/08/18 06/08/18 06/08/18 21:36 21:43 21:43 WBC RBC 2.98 L Hgb 8.8 L Hct 26.6 L MCV MCHC RDW 16.7 H Plt Count 463 H Lymph % (Auto) 7.9 L [place] % (Auto) Lymph # 0.8 L [place] # Seg Neutrophils % 84.8 H Seg Neuts % (Manual) Lymphocytes % (Manual) Monocytes % (Manual) Seg Neutrophils # 8.6 H Seg Neutrophils # Man Lymphocytes # (Manual) Monocytes # (Manual) PT INR APTT Heparin Anti-Xa Level POC ABG pH POC ABG pCO2 POC ABG pO2 Sodium Potassium Chloride Carbon Dioxide BUN Creatinine Glucose POC Glucose Lactic Acid Calcium Phosphorus Magnesium Iron TIBC AST ALT Alkaline Phosphatase Lactate Dehydrogenase 297 H Total Creatine Kinase C-Reactive Protein Total Protein Albumin Prealbumin CA 19-9 Antigen 57 H Folate PTH Intact Urine WBC (Auto) Urine Creatinine Urine Chloride Urine Total Protein Fluid Glucose Fluid Total Protein Vancomycin Trough Miscellaneous Test Crossmatch 06/09/18 06/09/18 06/09/18 00:05 05:34 05:50 WBC RBC Hgb Hct MCV MCHC RDW Plt Count Lymph % (Auto) [place] % (Auto) Lymph # [place] # Seg Neutrophils % Seg Neuts % (Manual) Lymphocytes % (Manual) Monocytes % (Manual) Seg Neutrophils # Seg Neutrophils # Man Lymphocytes # (Manual) Monocytes # (Manual) PT INR APTT Heparin Anti-Xa Level POC ABG pH POC ABG pCO2 POC ABG pO2 Sodium 153 H Potassium Chloride 117.3 H Carbon Dioxide BUN 84 H Creatinine 3.2 H Glucose 117 H POC Glucose 140 H 146 H Lactic Acid Calcium 7.9 L Phosphorus Magnesium Iron TIBC AST ALT Alkaline Phosphatase Lactate Dehydrogenase Total Creatine Kinase C-Reactive Protein Total Protein Albumin Prealbumin CA 19-9 Antigen Folate PTH Intact Urine WBC (Auto) Urine Creatinine Urine Chloride Urine Total Protein Fluid Glucose Fluid Total Protein Vancomycin Trough Miscellaneous Test Crossmatch 06/09/18 06/09/18 06/09/18 05:50 07:37 10:34 WBC RBC 2.32 L Hgb 6.8 L Hct 20.7 L MCV MCHC RDW 16.7 H Plt Count Lymph % (Auto) [place] % (Auto) Lymph # [place] # Seg Neutrophils % Seg Neuts % (Manual) Lymphocytes % (Manual) Monocytes % (Manual) Seg Neutrophils # Seg Neutrophils # Man Lymphocytes # (Manual) Monocytes # (Manual) PT INR APTT Heparin Anti-Xa Level POC ABG pH POC ABG pCO2 POC ABG pO2 Sodium 149 H Potassium Chloride 114.6 H Carbon Dioxide BUN 84 H Creatinine 3.1 H Glucose 137 H POC Glucose Lactic Acid Calcium 7.7 L Phosphorus Magnesium Iron TIBC AST ALT Alkaline Phosphatase Lactate Dehydrogenase Total Creatine Kinase C-Reactive Protein Total Protein Albumin Prealbumin CA 19-9 Antigen Folate PTH Intact Urine WBC (Auto) Urine Creatinine Urine Chloride Urine Total Protein Fluid Glucose Fluid Total Protein Vancomycin Trough Miscellaneous Test Flexitest 1 H Crossmatch 06/09/18 06/09/18 06/09/18 10:41 11:56 13:24 WBC RBC 2.43 L Hgb 7.2 L Hct 21.6 L MCV MCHC RDW 16.8 H Plt Count Lymph % (Auto) [place] % (Auto) Lymph # [place] # Seg Neutrophils % Seg Neuts % (Manual) Lymphocytes % (Manual) Monocytes % (Manual) Seg Neutrophils # Seg Neutrophils # Man Lymphocytes # (Manual) Monocytes # (Manual) PT INR APTT Heparin Anti-Xa Level POC ABG pH POC ABG pCO2 POC ABG pO2 Sodium Potassium Chloride Carbon Dioxide BUN Creatinine Glucose POC Glucose 141 H Lactic Acid Calcium Phosphorus Magnesium Iron TIBC AST ALT Alkaline Phosphatase Lactate Dehydrogenase Total Creatine Kinase C-Reactive Protein Total Protein Albumin Prealbumin CA 19-9 Antigen Folate PTH Intact Urine WBC (Auto) Urine Creatinine Urine Chloride Urine Total Protein Fluid Glucose Fluid Total Protein Vancomycin Trough Miscellaneous Test Crossmatch See Detail 06/09/18 06/09/18 06/10/18 18:18 23:13 05:26 WBC RBC Hgb Hct MCV MCHC RDW Plt Count Lymph % (Auto) [place] % (Auto) Lymph # [place] # Seg Neutrophils % Seg Neuts % (Manual) Lymphocytes % (Manual) Monocytes % (Manual) Seg Neutrophils # Seg Neutrophils # Man Lymphocytes # (Manual) Monocytes # (Manual) PT INR APTT Heparin Anti-Xa Level POC ABG pH POC ABG pCO2 POC ABG pO2 Sodium 148 H Potassium Chloride 114.7 H Carbon Dioxide 21 L BUN 79 H Creatinine 3.2 H Glucose 121 H POC Glucose 156 H 163 H Lactic Acid Calcium 7.8 L Phosphorus Magnesium 1.60 L Iron TIBC AST ALT Alkaline Phosphatase Lactate Dehydrogenase Total Creatine Kinase C-Reactive Protein Total Protein Albumin Prealbumin CA 19-9 Antigen Folate PTH Intact Urine WBC (Auto) Urine Creatinine Urine Chloride Urine Total Protein Fluid Glucose Fluid Total Protein Vancomycin Trough Miscellaneous Test Crossmatch 06/10/18 06/10/18 06/10/18 05:26 05:31 17:15 WBC 11.1 H RBC 3.07 L Hgb 9.1 L Hct 27.6 L D MCV MCHC RDW 17.4 H Plt Count Lymph % (Auto) [place] % (Auto) Lymph # [place] # Seg Neutrophils % Seg Neuts % (Manual) Lymphocytes % (Manual) Monocytes % (Manual) Seg Neutrophils # Seg Neutrophils # Man Lymphocytes # (Manual) Monocytes # (Manual) PT INR APTT Heparin Anti-Xa Level POC ABG pH POC ABG pCO2 POC ABG pO2 Sodium Potassium Chloride Carbon Dioxide BUN Creatinine Glucose POC Glucose 128 H Lactic Acid Calcium Phosphorus Magnesium Iron TIBC AST ALT Alkaline Phosphatase Lactate Dehydrogenase Total Creatine Kinase C-Reactive Protein 3.60 H Total Protein Albumin Prealbumin CA 19-9 Antigen Folate PTH Intact Urine WBC (Auto) Urine Creatinine Urine Chloride Urine Total Protein Fluid Glucose Fluid Total Protein Vancomycin Trough Miscellaneous Test Crossmatch 06/11/18 06/11/18 06/11/18 01:13 05:41 05:41 WBC 14.6 H RBC 3.40 L Hgb 9.8 L Hct 30.7 L MCV MCHC RDW 18.1 H Plt Count Lymph % (Auto) [place] % (Auto) Lymph # [place] # Seg Neutrophils % Seg Neuts % (Manual) Lymphocytes % (Manual) Monocytes % (Manual) Seg Neutrophils # Seg Neutrophils # Man Lymphocytes # (Manual) Monocytes # (Manual) PT INR APTT Heparin Anti-Xa Level POC ABG pH POC ABG pCO2 POC ABG pO2 Sodium Potassium Chloride 110.8 H Carbon Dioxide 18 L BUN 77 H Creatinine 3.0 H Glucose 116 H POC Glucose 126 H Lactic Acid Calcium 7.9 L Phosphorus Magnesium Iron TIBC AST ALT Alkaline Phosphatase Lactate Dehydrogenase Total Creatine Kinase C-Reactive Protein Total Protein Albumin Prealbumin CA 19-9 Antigen Folate PTH Intact Urine WBC (Auto) Urine Creatinine Urine Chloride Urine Total Protein Fluid Glucose Fluid Total Protein Vancomycin Trough Miscellaneous Test Crossmatch 06/11/18 06/11/18 06/11/18 06:20 07:41 07:41 WBC RBC Hgb Hct MCV MCHC RDW Plt Count Lymph % (Auto) [place] % (Auto) Lymph # [place] # Seg Neutrophils % Seg Neuts % (Manual) Lymphocytes % (Manual) Monocytes % (Manual) Seg Neutrophils # Seg Neutrophils # Man Lymphocytes # (Manual) Monocytes # (Manual) PT INR APTT Heparin Anti-Xa Level POC ABG pH POC ABG pCO2 POC ABG pO2 Sodium Potassium Chloride Carbon Dioxide BUN Creatinine Glucose POC Glucose 136 H Lactic Acid Calcium Phosphorus Magnesium Iron TIBC AST ALT Alkaline Phosphatase Lactate Dehydrogenase Total Creatine Kinase C-Reactive Protein Total Protein Albumin Prealbumin CA 19-9 Antigen Folate PTH Intact Urine WBC (Auto) 10.0 H Urine Creatinine 41.2 H Urine Chloride 49.2 L Urine Total Protein 142 H Fluid Glucose Fluid Total Protein Vancomycin Trough Miscellaneous Test Crossmatch 06/11/18 06/12/18 06/12/18 18:35 00:34 04:12 WBC RBC 3.18 L Hgb 9.5 L Hct 28.7 L MCV MCHC RDW 18.5 H Plt Count Lymph % (Auto) 8.1 L [place] % (Auto) Lymph # 0.9 L [place] # Seg Neutrophils % 84.6 H Seg Neuts % (Manual) Lymphocytes % (Manual) Monocytes % (Manual) Seg Neutrophils # 9.1 H Seg Neutrophils # Man Lymphocytes # (Manual) Monocytes # (Manual) PT INR APTT Heparin Anti-Xa Level POC ABG pH POC ABG pCO2 POC ABG pO2 Sodium Potassium Chloride Carbon Dioxide BUN Creatinine Glucose POC Glucose 125 H 129 H Lactic Acid Calcium Phosphorus Magnesium Iron TIBC AST ALT Alkaline Phosphatase Lactate Dehydrogenase Total Creatine Kinase C-Reactive Protein Total Protein Albumin Prealbumin CA 19-9 Antigen Folate PTH Intact Urine WBC (Auto) Urine Creatinine Urine Chloride Urine Total Protein Fluid Glucose Fluid Total Protein Vancomycin Trough Miscellaneous Test Crossmatch 06/12/18 06/12/18 06/12/18 04:12 06:30 11:43 WBC RBC Hgb Hct MCV MCHC RDW Plt Count Lymph % (Auto) [place] % (Auto) Lymph # [place] # Seg Neutrophils % Seg Neuts % (Manual) Lymphocytes % (Manual) Monocytes % (Manual) Seg Neutrophils # Seg Neutrophils # Man Lymphocytes # (Manual) Monocytes # (Manual) PT INR APTT Heparin Anti-Xa Level POC ABG pH POC ABG pCO2 POC ABG pO2 Sodium Potassium Chloride 108.5 H Carbon Dioxide 21 L BUN 72 H Creatinine 3.0 H Glucose 122 H POC Glucose 129 H 126 H Lactic Acid Calcium 7.8 L Phosphorus Magnesium Iron TIBC AST 45 H ALT Alkaline Phosphatase 200 H Lactate Dehydrogenase Total Creatine Kinase 34 L C-Reactive Protein Total Protein Albumin 1.7 L Prealbumin CA 19-9 Antigen Folate PTH Intact Urine WBC (Auto) Urine Creatinine Urine Chloride Urine Total Protein Fluid Glucose Fluid Total Protein Vancomycin Trough Miscellaneous Test Crossmatch 06/12/18 06/12/18 06/13/18 16:00 23:56 03:44 WBC RBC Hgb Hct MCV MCHC RDW Plt Count Lymph % (Auto) [place] % (Auto) Lymph # [place] # Seg Neutrophils % Seg Neuts % (Manual) Lymphocytes % (Manual) Monocytes % (Manual) Seg Neutrophils # Seg Neutrophils # Man Lymphocytes # (Manual) Monocytes # (Manual) PT INR APTT Heparin Anti-Xa Level POC ABG pH POC ABG pCO2 POC ABG pO2 Sodium Potassium Chloride Carbon Dioxide BUN Creatinine Glucose POC Glucose 123 H 128 H 121 H Lactic Acid Calcium Phosphorus Magnesium Iron TIBC AST ALT Alkaline Phosphatase Lactate Dehydrogenase Total Creatine Kinase C-Reactive Protein Total Protein Albumin Prealbumin CA 19-9 Antigen Folate PTH Intact Urine WBC (Auto) Urine Creatinine Urine Chloride Urine Total Protein Fluid Glucose Fluid Total Protein Vancomycin Trough Miscellaneous Test Crossmatch 06/13/18 06/13/18 06/14/18 05:59 11:29 01:08 WBC RBC Hgb Hct MCV MCHC RDW Plt Count Lymph % (Auto) [place] % (Auto) Lymph # [place] # Seg Neutrophils % Seg Neuts % (Manual) Lymphocytes % (Manual) Monocytes % (Manual) Seg Neutrophils # Seg Neutrophils # Man Lymphocytes # (Manual) Monocytes # (Manual) PT INR APTT Heparin Anti-Xa Level POC ABG pH POC ABG pCO2 POC ABG pO2 Sodium 134 L Potassium Chloride Carbon Dioxide 20 L BUN 69 H Creatinine 2.9 H Glucose 113 H POC Glucose 124 H 128 H Lactic Acid Calcium 7.8 L Phosphorus Magnesium Iron TIBC AST ALT Alkaline Phosphatase Lactate Dehydrogenase Total Creatine Kinase C-Reactive Protein Total Protein Albumin Prealbumin CA 19-9 Antigen Folate PTH Intact Urine WBC (Auto) Urine Creatinine Urine Chloride Urine Total Protein Fluid Glucose Fluid Total Protein Vancomycin Trough Miscellaneous Test Crossmatch 06/14/18 06/14/18 06/14/18 06:42 06:42 09:50 WBC 11.3 H RBC 3.02 L Hgb 8.8 L Hct 27.3 L MCV MCHC RDW 18.6 H Plt Count Lymph % (Auto) [place] % (Auto) Lymph # [place] # Seg Neutrophils % Seg Neuts % (Manual) Lymphocytes % (Manual) Monocytes % (Manual) Seg Neutrophils # Seg Neutrophils # Man Lymphocytes # (Manual) Monocytes # (Manual) PT 16.3 H INR 1.24 H APTT Heparin Anti-Xa Level POC ABG pH POC ABG pCO2 POC ABG pO2 Sodium 132 L Potassium Chloride Carbon Dioxide 19 L BUN 71 H Creatinine 3.1 H Glucose POC Glucose Lactic Acid Calcium 7.8 L Phosphorus Magnesium Iron TIBC AST ALT Alkaline Phosphatase Lactate Dehydrogenase Total Creatine Kinase C-Reactive Protein Total Protein Albumin Prealbumin CA 19-9 Antigen Folate PTH Intact Urine WBC (Auto) Urine Creatinine Urine Chloride Urine Total Protein Fluid Glucose Fluid Total Protein Vancomycin Trough Miscellaneous Test Crossmatch 06/14/18 06/14/18 06/15/18 12:31 17:04 01:18 WBC RBC Hgb Hct MCV MCHC RDW Plt Count Lymph % (Auto) [place] % (Auto) Lymph # [place] # Seg Neutrophils % Seg Neuts % (Manual) Lymphocytes % (Manual) Monocytes % (Manual) Seg Neutrophils # Seg Neutrophils # Man Lymphocytes # (Manual) Monocytes # (Manual) PT INR APTT Heparin Anti-Xa Level POC ABG pH POC ABG pCO2 POC ABG pO2 Sodium Potassium Chloride Carbon Dioxide BUN Creatinine Glucose POC Glucose 125 H 109 H 124 H Lactic Acid Calcium Phosphorus Magnesium Iron TIBC AST ALT Alkaline Phosphatase Lactate Dehydrogenase Total Creatine Kinase C-Reactive Protein Total Protein Albumin Prealbumin CA 19-9 Antigen Folate PTH Intact Urine WBC (Auto) Urine Creatinine Urine Chloride Urine Total Protein Fluid Glucose Fluid Total Protein Vancomycin Trough Miscellaneous Test Crossmatch 06/15/18 06/15/18 06/15/18 05:27 06:34 11:42 WBC RBC Hgb Hct MCV MCHC RDW Plt Count Lymph % (Auto) [place] % (Auto) Lymph # [place] # Seg Neutrophils % Seg Neuts % (Manual) Lymphocytes % (Manual) Monocytes % (Manual) Seg Neutrophils # Seg Neutrophils # Man Lymphocytes # (Manual) Monocytes # (Manual) PT INR APTT Heparin Anti-Xa Level POC ABG pH POC ABG pCO2 POC ABG pO2 Sodium 134 L Potassium Chloride Carbon Dioxide 17 L BUN 77 H Creatinine 3.2 H Glucose 110 H POC Glucose 116 H 131 H Lactic Acid Calcium 8.1 L Phosphorus 6.20 H D Magnesium Iron TIBC AST ALT Alkaline Phosphatase Lactate Dehydrogenase Total Creatine Kinase C-Reactive Protein Total Protein Albumin Prealbumin CA 19-9 Antigen Folate PTH Intact Urine WBC (Auto) Urine Creatinine Urine Chloride Urine Total Protein Fluid Glucose Fluid Total Protein Vancomycin Trough Miscellaneous Test Crossmatch 06/16/18 06/16/18 06/16/18 00:57 05:10 06:07 WBC RBC Hgb Hct MCV MCHC RDW Plt Count Lymph % (Auto) [place] % (Auto) Lymph # [place] # Seg Neutrophils % Seg Neuts % (Manual) Lymphocytes % (Manual) Monocytes % (Manual) Seg Neutrophils # Seg Neutrophils # Man Lymphocytes # (Manual) Monocytes # (Manual) PT INR APTT Heparin Anti-Xa Level POC ABG pH POC ABG pCO2 POC ABG pO2 Sodium 132 L Potassium Chloride Carbon Dioxide 19 L BUN 83 H Creatinine 3.2 H Glucose 113 H POC Glucose 137 H 109 H Lactic Acid Calcium 7.8 L Phosphorus 6.10 H Magnesium Iron TIBC AST ALT Alkaline Phosphatase Lactate Dehydrogenase Total Creatine Kinase C-Reactive Protein Total Protein Albumin Prealbumin CA 19-9 Antigen Folate PTH Intact Urine WBC (Auto) Urine Creatinine Urine Chloride Urine Total Protein Fluid Glucose Fluid Total Protein Vancomycin Trough Miscellaneous Test Crossmatch 06/16/18 06/16/18 06/17/18 11:51 15:46 00:02 WBC RBC Hgb Hct MCV MCHC RDW Plt Count Lymph % (Auto) [place] % (Auto) Lymph # [place] # Seg Neutrophils % Seg Neuts % (Manual) Lymphocytes % (Manual) Monocytes % (Manual) Seg Neutrophils # Seg Neutrophils # Man Lymphocytes # (Manual) Monocytes # (Manual) PT INR APTT Heparin Anti-Xa Level POC ABG pH POC ABG pCO2 POC ABG pO2 Sodium Potassium Chloride Carbon Dioxide BUN Creatinine Glucose POC Glucose 126 H 127 H 107 H Lactic Acid Calcium Phosphorus Magnesium Iron TIBC AST ALT Alkaline Phosphatase Lactate Dehydrogenase Total Creatine Kinase C-Reactive Protein Total Protein Albumin Prealbumin CA 19-9 Antigen Folate PTH Intact Urine WBC (Auto) Urine Creatinine Urine Chloride Urine Total Protein Fluid Glucose Fluid Total Protein Vancomycin Trough Miscellaneous Test Crossmatch 06/17/18 06/17/1806/17/18 05:52 11:46 16:58 WBC RBC Hgb Hct MCV MCHC RDW Plt Count Lymph % (Auto) [place] % (Auto) Lymph # [place] # Seg Neutrophils % Seg Neuts % (Manual) Lymphocytes % (Manual) Monocytes % (Manual) Seg Neutrophils # Seg Neutrophils # Man Lymphocytes # (Manual) Monocytes # (Manual) PT INR APTT Heparin Anti-Xa Level POC ABG pH POC ABG pCO2 POC ABG pO2 Sodium 133 L Potassium Chloride Carbon Dioxide 17 L BUN 87 H Creatinine 3.2 H Glucose POC Glucose 129 H 140 H Lactic Acid Calcium 8.1 L Phosphorus 6.50 H Magnesium Iron TIBC AST ALT Alkaline Phosphatase Lactate Dehydrogenase Total Creatine Kinase C-Reactive Protein Total Protein Albumin Prealbumin 0.130 L CA 19-9 Antigen Folate PTH Intact Urine WBC (Auto) Urine Creatinine Urine Chloride Urine Total Protein Fluid Glucose Fluid Total Protein Vancomycin Trough Miscellaneous Test Crossmatch 06/18/18 06/18/18 06/18/18 04:04 04:04 14:15 WBC RBC 3.00 L Hgb 8.9 L Hct 26.5 L MCV MCHC RDW 17.8 H Plt Count 494 H Lymph % (Auto) 7.9 L [place] % (Auto) 9.3 H Lymph # 0.8 L [place] # 1.0 H Seg Neutrophils % 81.2 H Seg Neuts % (Manual) Lymphocytes % (Manual) Monocytes % (Manual) Seg Neutrophils # 8.6 H Seg Neutrophils # Man Lymphocytes # (Manual) Monocytes # (Manual) PT INR APTT Heparin Anti-Xa Level POC ABG pH POC ABG pCO2 POC ABG pO2 Sodium 128 L Potassium Chloride Carbon Dioxide 18 L BUN 88 H Creatinine 3.1 H Glucose 129 H POC Glucose 143 H Lactic Acid Calcium 7.8 L Phosphorus 6.20 H Magnesium Iron TIBC AST ALT Alkaline Phosphatase Lactate Dehydrogenase Total Creatine Kinase C-Reactive Protein Total Protein Albumin Prealbumin CA 19-9 Antigen Folate PTH Intact Urine WBC (Auto) Urine Creatinine Urine Chloride Urine Total Protein Fluid Glucose Fluid Total Protein Vancomycin Trough Miscellaneous Test Crossmatch 06/18/18 06/19/18 06/19/18 17:54 01:45 06:20 WBC RBC Hgb Hct MCV MCHC RDW Plt Count Lymph % (Auto) [place] % (Auto) Lymph # [place] # Seg Neutrophils % Seg Neuts % (Manual) Lymphocytes % (Manual) Monocytes % (Manual) Seg Neutrophils # Seg Neutrophils # Man Lymphocytes # (Manual) Monocytes # (Manual) PT INR APTT Heparin Anti-Xa Level POC ABG pH POC ABG pCO2 POC ABG pO2 Sodium Potassium Chloride 93.9 L Carbon Dioxide BUN 78 H Creatinine 2.8 H Glucose POC Glucose 138 H 141 H Lactic Acid Calcium 7.1 L Phosphorus 6.40 H Magnesium Iron TIBC AST ALT Alkaline Phosphatase Lactate Dehydrogenase Total Creatine Kinase C-Reactive Protein Total Protein Albumin Prealbumin CA 19-9 Antigen Folate PTH Intact Urine WBC (Auto) Urine Creatinine Urine Chloride Urine Total Protein Fluid Glucose Fluid Total Protein Vancomycin Trough Miscellaneous Test Crossmatch 06/19/18 06/19/18 06/19/18 06:49 07:59 16:32 WBC RBC Hgb Hct MCV MCHC RDW Plt Count Lymph % (Auto) [place] % (Auto) Lymph # [place] # Seg Neutrophils % Seg Neuts % (Manual) Lymphocytes % (Manual) Monocytes % (Manual) Seg Neutrophils # Seg Neutrophils # Man Lymphocytes # (Manual) Monocytes # (Manual) PT INR APTT Heparin Anti-Xa Level POC ABG pH POC ABG pCO2 POC ABG pO2 Sodium Potassium Chloride Carbon Dioxide BUN 80 H Creatinine 2.9 H Glucose 123 H POC Glucose 130 H 134 H Lactic Acid Calcium 7.7 L Phosphorus Magnesium Iron TIBC AST ALT Alkaline Phosphatase Lactate Dehydrogenase Total Creatine Kinase C-Reactive Protein Total Protein Albumin Prealbumin CA 19-9 Antigen Folate PTH Intact Urine WBC (Auto) Urine Creatinine Urine Chloride Urine Total Protein Fluid Glucose Fluid Total Protein Vancomycin Trough Miscellaneous Test Crossmatch 06/20/18 06/20/18 06/20/18 00:11 05:55 05:55 WBC RBC 2.73 L Hgb 8.0 L Hct 24.2 L MCV MCHC RDW 17.4 H Plt Count 512 H Lymph % (Auto) 12.3 L [place] % (Auto) 11.3 H Lymph # 1.1 L [place] # 1.0 H Seg Neutrophils % 74.8 H Seg Neuts % (Manual) Lymphocytes % (Manual) Monocytes % (Manual) Seg Neutrophils # Seg Neutrophils # Man Lymphocytes # (Manual) Monocytes # (Manual) PT INR APTT Heparin Anti-Xa Level POC ABG pH POC ABG pCO2 POC ABG pO2 Sodium Potassium Chloride Carbon Dioxide 32 H BUN 70 H Creatinine 2.5 H Glucose 105 H POC Glucose 131 H Lactic Acid Calcium 8.0 L Phosphorus Magnesium Iron TIBC AST ALT Alkaline Phosphatase Lactate Dehydrogenase Total Creatine Kinase C-Reactive Protein Total Protein Albumin Prealbumin CA 19-9 Antigen Folate PTH Intact Urine WBC (Auto) Urine Creatinine Urine Chloride Urine Total Protein Fluid Glucose Fluid Total Protein Vancomycin Trough Miscellaneous Test Crossmatch 06/20/18 06/20/18 06/20/18 05:55 12:10 16:01 WBC RBC Hgb Hct MCV MCHC RDW Plt Count Lymph % (Auto) [place] % (Auto) Lymph # [place] # Seg Neutrophils % Seg Neuts % (Manual) Lymphocytes % (Manual) Monocytes % (Manual) Seg Neutrophils # Seg Neutrophils # Man Lymphocytes # (Manual) Monocytes # (Manual) PT INR APTT Heparin Anti-Xa Level POC ABG pH POC ABG pCO2 POC ABG pO2 Sodium Potassium Chloride Carbon Dioxide BUN Creatinine Glucose POC Glucose 112 H 127 H 145 H Lactic Acid Calcium Phosphorus Magnesium Iron TIBC AST ALT Alkaline Phosphatase Lactate Dehydrogenase Total Creatine Kinase C-Reactive Protein Total Protein Albumin Prealbumin CA 19-9 Antigen Folate PTH Intact Urine WBC (Auto) Urine Creatinine Urine Chloride Urine Total Protein Fluid Glucose Fluid Total Protein Vancomycin Trough Miscellaneous Test Crossmatch 06/20/18 06/21/18 06/21/18 23:54 05:50 05:50 WBC RBC 2.57 L Hgb 7.7 L Hct 26.6 L MCV 104 H MCHC 29 L RDW 19.1 H Plt Count 521 H Lymph % (Auto) 10.0 L [place] % (Auto) 7.4 H Lymph # 1.0 L [place] # Seg Neutrophils % 81.3 H Seg Neuts % (Manual) Lymphocytes % (Manual) Monocytes % (Manual) Seg Neutrophils # 7.9 H Seg Neutrophils # Man Lymphocytes # (Manual) Monocytes # (Manual) PT INR APTT Heparin Anti-Xa Level POC ABG pH POC ABG pCO2 POC ABG pO2 Sodium Potassium 5.8 H D Chloride 90.3 L Carbon Dioxide 37 H BUN 57 H Creatinine 1.9 H Glucose POC Glucose 154 H Lactic Acid Calcium 7.3 L Phosphorus Magnesium Iron TIBC AST 50 H ALT Alkaline Phosphatase 190 H Lactate Dehydrogenase Total Creatine Kinase C-Reactive Protein Total Protein Albumin 1.8 L Prealbumin CA 19-9 Antigen Folate PTH Intact Urine WBC (Auto) Urine Creatinine Urine Chloride Urine Total Protein Fluid Glucose Fluid Total Protein Vancomycin Trough Miscellaneous Test Crossmatch 06/21/18 06/21/18 06/21/18 06:57 13:37 17:00 WBC RBC Hgb Hct MCV MCHC RDW Plt Count Lymph % (Auto) [place] % (Auto) Lymph # [place] # Seg Neutrophils % Seg Neuts % (Manual) Lymphocytes % (Manual) Monocytes % (Manual) Seg Neutrophils # Seg Neutrophils # Man Lymphocytes # (Manual) Monocytes # (Manual) PT INR APTT Heparin Anti-Xa Level POC ABG pH POC ABG pCO2 POC ABG pO2 Sodium Potassium Chloride Carbon Dioxide BUN Creatinine Glucose 111 H POC Glucose 141 H 148 H Lactic Acid Calcium Phosphorus Magnesium Iron TIBC AST ALT Alkaline Phosphatase Lactate Dehydrogenase Total Creatine Kinase C-Reactive Protein Total Protein Albumin Prealbumin CA 19-9 Antigen Folate PTH Intact Urine WBC (Auto) Urine Creatinine Urine Chloride Urine Total Protein Fluid Glucose Fluid Total Protein Vancomycin Trough Miscellaneous Test Crossmatch 06/21/18 06/21/18 06/22/18 17:27 22:01 06:02 WBC RBC Hgb Hct MCV MCHC RDW Plt Count Lymph % (Auto) [place] % (Auto) Lymph # [place] # Seg Neutrophils % Seg Neuts % (Manual) Lymphocytes % (Manual) Monocytes % (Manual) Seg Neutrophils # Seg Neutrophils # Man Lymphocytes # (Manual) Monocytes # (Manual) PT INR APTT Heparin Anti-Xa Level POC ABG pH POC ABG pCO2 POC ABG pO2 Sodium Potassium 3.2 L Chloride Carbon Dioxide 39 H BUN 53 H Creatinine 1.9 H Glucose 1348 H* POC Glucose 130 H 122 H Lactic Acid Calcium 7.5 L Phosphorus Magnesium Iron TIBC AST ALT Alkaline Phosphatase Lactate Dehydrogenase Total Creatine Kinase C-Reactive Protein Total Protein Albumin Prealbumin CA 19-9 Antigen Folate PTH Intact Urine WBC (Auto) Urine Creatinine Urine Chloride Urine Total Protein Fluid Glucose Fluid Total Protein Vancomycin Trough Miscellaneous Test Crossmatch 06/22/18 06/22/18 06/22/18 06:16 07:26 07:48 WBC RBC Hgb Hct MCV MCHC RDW Plt Count Lymph % (Auto) [place] % (Auto) Lymph # [place] # Seg Neutrophils % Seg Neuts % (Manual) Lymphocytes % (Manual) Monocytes % (Manual) Seg Neutrophils # Seg Neutrophils # Man Lymphocytes # (Manual) Monocytes # (Manual) PT INR APTT Heparin Anti-Xa Level POC ABG pH POC ABG pCO2 POC ABG pO2 Sodium Potassium Chloride Carbon Dioxide 37 H BUN 57 H Creatinine 1.9 H Glucose 147 H POC Glucose 148 H 153 H Lactic Acid Calcium 8.3 L Phosphorus Magnesium Iron TIBC AST ALT Alkaline Phosphatase Lactate Dehydrogenase Total Creatine Kinase C-Reactive Protein Total Protein Albumin Prealbumin CA 19-9 Antigen Folate PTH Intact Urine WBC (Auto) Urine Creatinine Urine Chloride Urine Total Protein Fluid Glucose Fluid Total Protein Vancomycin Trough Miscellaneous Test Crossmatch 06/22/18 06/22/18 06/22/18 11:26 16:26 23:57 WBC RBC Hgb Hct MCV MCHC RDW Plt Count Lymph % (Auto) [place] % (Auto) Lymph # [place] # Seg Neutrophils % Seg Neuts % (Manual) Lymphocytes % (Manual) Monocytes % (Manual) Seg Neutrophils # Seg Neutrophils # Man Lymphocytes # (Manual) Monocytes # (Manual) PT INR APTT Heparin Anti-Xa Level POC ABG pH POC ABG pCO2 POC ABG pO2 Sodium Potassium Chloride Carbon Dioxide BUN Creatinine Glucose POC Glucose 121 H 122 H 180 H Lactic Acid Calcium Phosphorus Magnesium Iron TIBC AST ALT Alkaline Phosphatase Lactate Dehydrogenase Total Creatine Kinase C-Reactive Protein Total Protein Albumin Prealbumin CA 19-9 Antigen Folate PTH Intact Urine WBC (Auto) Urine Creatinine Urine Chloride Urine Total Protein Fluid Glucose Fluid Total Protein Vancomycin Trough Miscellaneous Test Crossmatch 06/22/18 06/23/18 06/23/18 23:57 00:30 01:40 WBC RBC Hgb Hct MCV MCHC RDW Plt Count Lymph % (Auto) [place] % (Auto) Lymph # [place] # Seg Neutrophils % Seg Neuts % (Manual) Lymphocytes % (Manual) Monocytes % (Manual) Seg Neutrophils # Seg Neutrophils # Man Lymphocytes # (Manual) Monocytes # (Manual) PT INR APTT Heparin Anti-Xa Level POC ABG pH 7.195 L 7.235 L POC ABG pCO2 105.2 H 95.7 H POC ABG pO2 Sodium Potassium Chloride Carbon Dioxide BUN Creatinine Glucose POC Glucose Lactic Acid Calcium Phosphorus Magnesium Iron TIBC AST ALT Alkaline Phosphatase Lactate Dehydrogenase Total Creatine Kinase C-Reactive Protein Total Protein Albumin Prealbumin CA 19-9 Antigen Folate PTH Intact Urine WBC (Auto) Urine Creatinine 99.7 H Urine Chloride 10.0 L Urine Total Protein 272 H Fluid Glucose Fluid Total Protein Vancomycin Trough Miscellaneous Test Crossmatch 06/23/18 06/23/18 06/23/18 05:58 07:20 08:31 WBC 16.0 H RBC 2.35 L Hgb 6.7 L Hct 22.3 L MCV 95 H MCHC 30 L RDW 18.5 H Plt Count 512 H Lymph % (Auto) [place] % (Auto) Lymph # [place] # Seg Neutrophils % Seg Neuts % (Manual) Lymphocytes % (Manual) Monocytes % (Manual) Seg Neutrophils # Seg Neutrophils # Man Lymphocytes # (Manual) Monocytes # (Manual) PT INR APTT Heparin Anti-Xa Level POC ABG pH POC ABG pCO2 POC ABG pO2 Sodium Potassium Chloride Carbon Dioxide BUN Creatinine Glucose POC Glucose 116 H 123 H Lactic Acid Calcium Phosphorus Magnesium Iron TIBC AST ALT Alkaline Phosphatase Lactate Dehydrogenase Total Creatine Kinase C-Reactive Protein Total Protein Albumin Prealbumin CA 19-9 Antigen Folate PTH Intact Urine WBC (Auto) Urine Creatinine Urine Chloride Urine Total Protein Fluid Glucose Fluid Total Protein Vancomycin Trough Miscellaneous Test Crossmatch 06/23/18 06/23/18 06/23/18 08:31 08:34 08:34 WBC RBC Hgb Hct MCV MCHC RDW Plt Count 485 H Lymph % (Auto) [place] % (Auto) Lymph # [place] # Seg Neutrophils % Seg Neuts % (Manual) Lymphocytes % (Manual) Monocytes % (Manual) Seg Neutrophils # Seg Neutrophils # Man Lymphocytes # (Manual) Monocytes # (Manual) PT 15.2 H INR 1.15 H APTT 41.9 H Heparin Anti-Xa Level POC ABG pH POC ABG pCO2 POC ABG pO2 Sodium 148 H Potassium Chloride Carbon Dioxide BUN 59 H Creatinine 2.2 H Glucose 106 H POC Glucose Lactic Acid Calcium 8.2 L Phosphorus 6.60 H Magnesium Iron TIBC AST 46 H ALT Alkaline Phosphatase 188 H Lactate Dehydrogenase Total Creatine Kinase C-Reactive Protein Total Protein Albumin 1.6 L Prealbumin CA 19-9 Antigen Folate PTH Intact Urine WBC (Auto) Urine Creatinine Urine Chloride Urine Total Protein Fluid Glucose Fluid Total Protein Vancomycin Trough Miscellaneous Test Crossmatch 06/23/18 06/23/18 06/23/18 09:29 09:40 09:43 WBC RBC Hgb Hct MCV MCHC RDW Plt Count Lymph % (Auto) [place] % (Auto) Lymph # [place] # Seg Neutrophils % Seg Neuts % (Manual) Lymphocytes % (Manual) Monocytes % (Manual) Seg Neutrophils # Seg Neutrophils # Man Lymphocytes # (Manual) Monocytes # (Manual) PT INR APTT Heparin Anti-Xa Level POC ABG pH 7.521 H POC ABG pCO2 53.6 H 48.4 H POC ABG pO2 37 L 181 H Sodium Potassium Chloride Carbon Dioxide BUN Creatinine Glucose POC Glucose Lactic Acid Calcium Phosphorus Magnesium Iron TIBC AST ALT Alkaline Phosphatase Lactate Dehydrogenase Total Creatine Kinase C-Reactive Protein Total Protein Albumin Prealbumin CA 19-9 Antigen Folate PTH Intact Urine WBC (Auto) Urine Creatinine Urine Chloride Urine Total Protein Fluid Glucose Fluid Total Protein Vancomycin Trough Miscellaneous Test Crossmatch See Detail 06/23/18 06/23/18 06/23/18 17:03 17:03 18:33 WBC 22.2 H RBC 2.85 L Hgb 8.4 L Hct 25.6 L MCV MCHC RDW 17.6 H Plt Count 515 H Lymph % (Auto) [place] % (Auto) Lymph # [place] # Seg Neutrophils % Seg Neuts % (Manual) Lymphocytes % (Manual) Monocytes % (Manual) Seg Neutrophils # Seg Neutrophils # Man Lymphocytes # (Manual) Monocytes # (Manual) PT INR APTT Heparin Anti-Xa Level 0.13 L POC ABG pH POC ABG pCO2 POC ABG pO2 Sodium Potassium Chloride Carbon Dioxide BUN Creatinine Glucose POC Glucose < 40 L Lactic Acid Calcium Phosphorus Magnesium Iron TIBC AST ALT Alkaline Phosphatase Lactate Dehydrogenase Total Creatine Kinase C-Reactive Protein Total Protein Albumin Prealbumin CA 19-9 Antigen Folate PTH Intact Urine WBC (Auto) Urine Creatinine Urine Chloride Urine Total Protein Fluid Glucose Fluid Total Protein Vancomycin Trough Miscellaneous Test Crossmatch 06/23/18 06/23/18 06/24/18 23:53 Unknown 00:30 WBC RBC Hgb Hct MCV MCHC RDW Plt Count Lymph % (Auto) [place] % (Auto) Lymph # [place] # Seg Neutrophils % Seg Neuts % (Manual) Lymphocytes % (Manual) Monocytes % (Manual) Seg Neutrophils # Seg Neutrophils # Man Lymphocytes # (Manual) Monocytes # (Manual) PT INR APTT Heparin Anti-Xa Level POC ABG pH POC ABG pCO2 POC ABG pO2 Sodium 148 H Potassium Chloride Carbon Dioxide 36 H BUN 57 H Creatinine 1.9 H Glucose POC Glucose 140 H Lactic Acid Calcium 8.3 L Phosphorus Magnesium Iron TIBC AST ALT Alkaline Phosphatase Lactate Dehydrogenase Total Creatine Kinase C-Reactive Protein Total Protein Albumin Prealbumin CA 19-9 Antigen Folate PTH Intact Urine WBC (Auto) 8.0 H Urine Creatinine Urine Chloride Urine Total Protein Fluid Glucose Fluid Total Protein Vancomycin Trough Miscellaneous Test Crossmatch 06/24/18 06/24/18 06/24/18 00:40 04:30 04:30 WBC 26.9 H RBC 2.79 L Hgb 8.1 L Hct 25.0 L MCV MCHC RDW 17.5 H Plt Count 487 H Lymph % (Auto) [place] % (Auto) Lymph # [place] # Seg Neutrophils % Seg Neuts % (Manual) Lymphocytes % (Manual) 6.0 L Monocytes % (Manual) 8.0 H Seg Neutrophils # Seg Neutrophils # Man 16.9 H Lymphocytes # (Manual) Monocytes # (Manual) 2.2 H PT INR APTT Heparin Anti-Xa Level 0.13 L POC ABG pH POC ABG pCO2 POC ABG pO2 Sodium 151 H Potassium Chloride Carbon Dioxide 36 H D BUN 74 H Creatinine 2.9 H Glucose 126 H POC Glucose Lactic Acid Calcium 8.2 L Phosphorus Magnesium Iron TIBC AST ALT Alkaline Phosphatase Lactate Dehydrogenase Total Creatine Kinase C-Reactive Protein Total Protein Albumin Prealbumin CA 19-9 Antigen Folate PTH Intact Urine WBC (Auto) Urine Creatinine Urine Chloride Urine Total Protein Fluid Glucose Fluid Total Protein Vancomycin Trough Miscellaneous Test Crossmatch 06/24/18 06/24/18 06/24/18 04:33 06:41 08:00 WBC RBC Hgb Hct MCV MCHC RDW Plt Count Lymph % (Auto) [place] % (Auto) Lymph # [place] # Seg Neutrophils % Seg Neuts % (Manual) Lymphocytes % (Manual) Monocytes % (Manual) Seg Neutrophils # Seg Neutrophils # Man Lymphocytes # (Manual) Monocytes # (Manual) PT INR APTT Heparin Anti-Xa Level 0.21 L POC ABG pH 7.517 H POC ABG pCO2 50.9 H POC ABG pO2 170 H Sodium Potassium Chloride Carbon Dioxide BUN Creatinine Glucose POC Glucose 140 H Lactic Acid Calcium Phosphorus Magnesium Iron TIBC AST ALT Alkaline Phosphatase Lactate Dehydrogenase Total Creatine Kinase C-Reactive Protein Total Protein Albumin Prealbumin CA 19-9 Antigen Folate PTH Intact Urine WBC (Auto) Urine Creatinine Urine Chloride Urine Total Protein Fluid Glucose Fluid Total Protein Vancomycin Trough Miscellaneous Test Crossmatch 06/24/18 06/24/18 06/24/18 12:27 14:20 18:46 WBC RBC Hgb Hct MCV MCHC RDW Plt Count Lymph % (Auto) [place] % (Auto) Lymph # [place] # Seg Neutrophils % Seg Neuts % (Manual) Lymphocytes % (Manual) Monocytes % (Manual) Seg Neutrophils # Seg Neutrophils # Man Lymphocytes # (Manual) Monocytes # (Manual) PT INR APTT Heparin Anti-Xa Level 0.28 L POC ABG pH POC ABG pCO2 POC ABG pO2 Sodium Potassium Chloride Carbon Dioxide BUN Creatinine Glucose POC Glucose 216 H 182 H Lactic Acid Calcium Phosphorus Magnesium Iron TIBC AST ALT Alkaline Phosphatase Lactate Dehydrogenase Total Creatine Kinase C-Reactive Protein Total Protein Albumin Prealbumin CA 19-9 Antigen Folate PTH Intact Urine WBC (Auto) Urine Creatinine Urine Chloride Urine Total Protein Fluid Glucose Fluid Total Protein Vancomycin Trough Miscellaneous Test Crossmatch 06/24/18 06/25/18 06/25/18 23:43 04:29 04:37 WBC RBC Hgb 8.1 L Hct 25.6 L MCV MCHC RDW Plt Count Lymph % (Auto) [place] % (Auto) Lymph # [place] # Seg Neutrophils % Seg Neuts % (Manual) Lymphocytes % (Manual) Monocytes % (Manual) Seg Neutrophils # Seg Neutrophils # Man Lymphocytes # (Manual) Monocytes # (Manual) PT INR APTT Heparin Anti-Xa Level POC ABG pH 7.534 H POC ABG pCO2 POC ABG pO2 161 H Sodium Potassium Chloride Carbon Dioxide BUN Creatinine Glucose POC Glucose 217 H Lactic Acid Calcium Phosphorus Magnesium Iron TIBC AST ALT Alkaline Phosphatase Lactate Dehydrogenase Total Creatine Kinase C-Reactive Protein Total Protein Albumin Prealbumin CA 19-9 Antigen Folate PTH Intact Urine WBC (Auto) Urine Creatinine Urine Chloride Urine Total Protein Fluid Glucose Fluid Total Protein Vancomycin Trough Miscellaneous Test Crossmatch 06/25/18 06/25/18 06/25/18 04:37 05:48 12:11 WBC RBC Hgb Hct MCV MCHC RDW Plt Count Lymph % (Auto) [place] % (Auto) Lymph # [place] # Seg Neutrophils % Seg Neuts % (Manual) Lymphocytes % (Manual) Monocytes % (Manual) Seg Neutrophils # Seg Neutrophils # Man Lymphocytes # (Manual) Monocytes # (Manual) PT INR APTT Heparin Anti-Xa Level POC ABG pH POC ABG pCO2 POC ABG pO2 Sodium Potassium 2.6 L* D Chloride Carbon Dioxide 32 H BUN 75 H Creatinine 3.1 H Glucose 244 H POC Glucose 225 H 252 H Lactic Acid Calcium Phosphorus Magnesium Iron TIBC AST ALT Alkaline Phosphatase Lactate Dehydrogenase Total Creatine Kinase C-Reactive Protein Total Protein Albumin Prealbumin CA 19-9 Antigen Folate PTH Intact Urine WBC (Auto) Urine Creatinine Urine Chloride Urine Total Protein Fluid Glucose Fluid Total Protein Vancomycin Trough Miscellaneous Test Crossmatch 06/25/18 06/25/18 06/25/18 15:58 18:12 20:30 WBC RBC Hgb 8.5 L Hct 27.6 L MCV MCHC RDW Plt Count Lymph % (Auto) [place] % (Auto) Lymph # [place] # Seg Neutrophils % Seg Neuts % (Manual) Lymphocytes % (Manual) Monocytes % (Manual) Seg Neutrophils # Seg Neutrophils # Man Lymphocytes # (Manual) Monocytes # (Manual) PT INR APTT Heparin Anti-Xa Level POC ABG pH POC ABG pCO2 POC ABG pO2 Sodium 148 H Potassium 2.4 L* Chloride Carbon Dioxide 31 H BUN 79 H Creatinine 3.0 H Glucose 152 H POC Glucose 199 H Lactic Acid Calcium 8.3 L Phosphorus Magnesium Iron TIBC AST ALT Alkaline Phosphatase Lactate Dehydrogenase Total Creatine Kinase C-Reactive Protein Total Protein Albumin Prealbumin CA 19-9 Antigen Folate PTH Intact Urine WBC (Auto) Urine Creatinine Urine Chloride Urine Total Protein Fluid Glucose Fluid Total Protein Vancomycin Trough Miscellaneous Test Crossmatch 06/26/18 06/26/18 06/26/18 04:00 04:00 04:00 WBC 26.2 H RBC 3.16 L Hgb 9.1 L Hct 28.8 L MCV MCHC RDW 18.2 H Plt Count Lymph % (Auto) [place] % (Auto) Lymph # [place] # Seg Neutrophils % Seg Neuts % (Manual) Lymphocytes % (Manual) 2.0 L Monocytes % (Manual) Seg Neutrophils # Seg Neutrophils # Man 11.5 H Lymphocytes # (Manual) 0.5 L Monocytes # (Manual) PT INR APTT Heparin Anti-Xa Level POC ABG pH POC ABG pCO2 POC ABG pO2 Sodium 146 H Potassium 3.2 L D 3.3 L Chloride 109.0 H 108.2 H Carbon Dioxide BUN 74 H 75 H Creatinine 2.9 H 2.9 H Glucose 62 L 60 L POC Glucose Lactic Acid Calcium 7.7 L 7.9 L Phosphorus Magnesium 1.60 L Iron TIBC AST ALT Alkaline Phosphatase 173 H Lactate Dehydrogenase Total Creatine Kinase C-Reactive Protein Total Protein 6.1 L Albumin 1.4 L Prealbumin CA 19-9 Antigen Folate PTH Intact Urine WBC (Auto) Urine Creatinine Urine Chloride Urine Total Protein Fluid Glucose Fluid Total Protein Vancomycin Trough Miscellaneous Test Crossmatch 06/26/18 06/26/18 06/26/18 05:57 05:59 06:22 WBC RBC Hgb Hct MCV MCHC RDW Plt Count Lymph % (Auto) [place] % (Auto) Lymph # [place] # Seg Neutrophils % Seg Neuts % (Manual) Lymphocytes % (Manual) Monocytes % (Manual) Seg Neutrophils # Seg Neutrophils # Man Lymphocytes # (Manual) Monocytes # (Manual) PT INR APTT Heparin Anti-Xa Level POC ABG pH 7.269 L POC ABG pCO2 68.0 H POC ABG pO2 73 L Sodium Potassium Chloride Carbon Dioxide BUN Creatinine Glucose POC Glucose 59 L 130 H Lactic Acid Calcium Phosphorus Magnesium Iron TIBC AST ALT Alkaline Phosphatase Lactate Dehydrogenase Total Creatine Kinase C-Reactive Protein Total Protein Albumin Prealbumin CA 19-9 Antigen Folate PTH Intact Urine WBC (Auto) Urine Creatinine Urine Chloride Urine Total Protein Fluid Glucose Fluid Total Protein Vancomycin Trough Miscellaneous Test Crossmatch Chest x-ray: image reviewed (persistent bilateral pleural effusions; ETT in good position) Allied health notes reviewed: nursing
--- NOTE | 2018-06-26 16:34 | Progress Note ---
Subjective Date of service: 06/26/18 Principal diagnosis: Acute Hypoxemic Resp Failure; Sepsis Syndrome; Acute VTE; Prostate Cancer Interval history: no brain activity seen on the EEG it appears isoelectric Objective - Vital Sign Vital Signs - 12hr 06/26/18 06/26/18 06/26/18 04:45 05:00 05:15 Temperature Pulse Rate 108 H 112 H 112 H Pulse Rate [ From Monitor] Respiratory 20 6 L 20 Rate Blood Pressure 82/53 85/53 84/50 O2 Sat by Pulse 92 90 94 Oximetry 06/26/18 06/26/18 06/26/18 05:30 05:44 05:45 Temperature Pulse Rate 113 H 114 H 114 H Pulse Rate [ From Monitor] Respiratory 20 20 Rate Blood Pressure 83/55 82/52 82/52 O2 Sat by Pulse 96 95 95 Oximetry 06/26/18 06/26/18 06/26/18 06:00 06:07 06:15 Temperature Pulse Rate 115 H 117 H 118 H Pulse Rate [ From Monitor] Respiratory 20 20 Rate Blood Pressure 86/54 86/54 90/53 O2 Sat by Pulse 93 92 Oximetry 06/26/18 06/26/18 06/26/18 06:30 06:45 07:00 Temperature Pulse Rate 119 H 121 H 124 H Pulse Rate [ From Monitor] Respiratory 20 20 24 Rate Blood Pressure 81/48 77/47 75/49 O2 Sat by Pulse 90 89 96 Oximetry 06/26/18 06/26/18 06/26/18 07:15 07:30 07:45 Temperature Pulse Rate 125 H 123 H 132 H Pulse Rate [ From Monitor] Respiratory 24 23 24 Rate Blood Pressure 79/50 66/42 104/67 O2 Sat by Pulse 95 95 97 Oximetry 06/26/18 06/26/18 06/26/18 08:00 08:15 08:30 Temperature 99.1 F Pulse Rate 133 H 133 H 134 H Pulse Rate [ 132 H From Monitor] Respiratory 24 24 21 Rate Blood Pressure 104/68 104/69 101/68 O2 Sat by Pulse 96 96 96 Oximetry 06/26/18 06/26/18 06/26/18 08:45 09:00 09:15 Temperature Pulse Rate 133 H 135 H 134 H Pulse Rate [ From Monitor] Respiratory 10 L 21 24 Rate Blood Pressure 97/56 110/65 109/66 O2 Sat by Pulse 95 95 95 Oximetry 06/26/18 06/26/18 06/26/18 09:30 09:45 10:00 Temperature Pulse Rate 134 H 134 H 133 H Pulse Rate [ From Monitor] Respiratory 24 24 16 Rate Blood Pressure 98/64 104/65 97/56 O2 Sat by Pulse 95 94 94 Oximetry 06/26/18 06/26/18 06/26/18 10:15 10:30 10:45 Temperature Pulse Rate 133 H 133 H 134 H Pulse Rate [ From Monitor] Respiratory 13 21 24 Rate Blood Pressure 94/62 95/62 95/64 O2 Sat by Pulse 94 94 93 Oximetry 06/26/18 06/26/18 06/26/18 11:00 11:15 11:30 Temperature Pulse Rate 133 H 133 H 133 H Pulse Rate [ From Monitor] Respiratory 14 15 21 Rate Blood Pressure 103/64 97/61 92/60 O2 Sat by Pulse 93 93 93 Oximetry 06/26/18 06/26/18 06/26/18 11:45 12:00 12:09 Temperature Pulse Rate 133 H 131 H 133 H Pulse Rate [ 130 H From Monitor] Respiratory 24 24 Rate Blood Pressure 94/61 90/57 90/60 O2 Sat by Pulse 93 93 Oximetry 06/26/18 13:28 Temperature 98.2 F Pulse Rate Pulse Rate [ From Monitor] Respiratory Rate Blood Pressure O2 Sat by Pulse Oximetry - Laboratory Findings CBC and BMP: 06/26/18 04:00 06/26/18 04:00 Abnormal Lab Findings: Abnormal Labs 05/13/18 05/13/18 05/13/18 04:27 04:27 19:39 WBC RBC 3.13 L Hgb 9.4 L Hct 26.8 L MCV MCHC 35 H RDW Plt Count Lymph % (Auto) [place] % (Auto) 9.6 H Lymph # [place] # Seg Neutrophils % Seg Neuts % (Manual) Lymphocytes % (Manual) Monocytes % (Manual) Seg Neutrophils # Seg Neutrophils # Man Lymphocytes # (Manual) Monocytes # (Manual) PT INR APTT Heparin Anti-Xa Level POC ABG pH POC ABG pCO2 POC ABG pO2 Sodium 132 L Potassium 5.5 H Chloride 94.1 L Carbon Dioxide 19 L BUN 72 H Creatinine 14.4 H Glucose POC Glucose Lactic Acid Calcium Phosphorus Magnesium Iron TIBC AST ALT Alkaline Phosphatase Lactate Dehydrogenase Total Creatine Kinase C-Reactive Protein Total Protein Albumin 2.8 L Prealbumin CA 19-9 Antigen Folate PTH Intact Urine WBC (Auto) Urine Creatinine 66.0 H Urine Chloride 27.8 L Urine Total Protein 24 H Fluid Glucose Fluid Total Protein Vancomycin Trough Miscellaneous Test Crossmatch 05/13/18 05/14/18 05/14/18 20:00 05:05 05:05 WBC RBC Hgb Hct MCV MCHC RDW Plt Count Lymph % (Auto) [place] % (Auto) Lymph # [place] # Seg Neutrophils % Seg Neuts % (Manual) Lymphocytes % (Manual) Monocytes % (Manual) Seg Neutrophils # Seg Neutrophils # Man Lymphocytes # (Manual) Monocytes # (Manual) PT INR APTT Heparin Anti-Xa Level POC ABG pH POC ABG pCO2 POC ABG pO2 Sodium 132 L 131 L Potassium 5.2 H 5.8 H Chloride 93.0 L 95.6 L Carbon Dioxide 19 L 20 L BUN 74 H 81 H Creatinine 15.0 H 16.6 H Glucose 134 H 127 H POC Glucose Lactic Acid Calcium 8.2 L 7.9 L Phosphorus 6.30 H Magnesium Iron TIBC AST ALT Alkaline Phosphatase Lactate Dehydrogenase Total Creatine Kinase 236 H C-Reactive Protein Total Protein Albumin Prealbumin CA 19-9 Antigen Folate PTH Intact 65.37 H Urine WBC (Auto) Urine Creatinine Urine Chloride Urine Total Protein Fluid Glucose Fluid Total Protein Vancomycin Trough Miscellaneous Test Crossmatch 05/14/18 05/14/18 05/14/18 09:28 10:56 13:29 WBC RBC Hgb Hct MCV MCHC RDW Plt Count Lymph % (Auto) [place] % (Auto) Lymph # [place] # Seg Neutrophils % Seg Neuts % (Manual) Lymphocytes % (Manual) Monocytes % (Manual) Seg Neutrophils # Seg Neutrophils # Man Lymphocytes # (Manual) Monocytes # (Manual) PT INR APTT 38.2 H Heparin Anti-Xa Level POC ABG pH POC ABG pCO2 POC ABG pO2 Sodium Potassium Chloride Carbon Dioxide BUN Creatinine Glucose POC Glucose 127 H 126 H Lactic Acid Calcium Phosphorus Magnesium Iron TIBC AST ALT Alkaline Phosphatase Lactate Dehydrogenase Total Creatine Kinase C-Reactive Protein Total Protein Albumin Prealbumin CA 19-9 Antigen Folate PTH Intact Urine WBC (Auto) Urine Creatinine Urine Chloride Urine Total Protein Fluid Glucose Fluid Total Protein Vancomycin Trough Miscellaneous Test Crossmatch 05/15/18 05/15/18 05/16/18 08:06 08:06 07:02 WBC RBC 2.84 L 2.74 L Hgb 8.5 L 8.5 L Hct 24.2 L 23.5 L MCV MCHC 35 H 36 H RDW Plt Count Lymph % (Auto) [place] % (Auto) 10.4 H 11.0 H Lymph # 1.1 L [place] # 0.9 H Seg Neutrophils % 72.6 H Seg Neuts % (Manual) Lymphocytes % (Manual) Monocytes % (Manual) Seg Neutrophils # Seg Neutrophils # Man Lymphocytes # (Manual) Monocytes # (Manual) PT INR APTT Heparin Anti-Xa Level POC ABG pH POC ABG pCO2 POC ABG pO2 Sodium Potassium Chloride Carbon Dioxide 19 L BUN 66 H Creatinine 12.0 H Glucose 115 H POC Glucose Lactic Acid Calcium 8.1 L Phosphorus Magnesium Iron TIBC AST ALT Alkaline Phosphatase Lactate Dehydrogenase Total Creatine Kinase C-Reactive Protein Total Protein Albumin Prealbumin CA 19-9 Antigen Folate PTH Intact Urine WBC (Auto) Urine Creatinine Urine Chloride Urine Total Protein Fluid Glucose Fluid Total Protein Vancomycin Trough Miscellaneous Test Crossmatch 05/16/18 05/16/18 05/17/18 07:02 07:02 05:08 WBC RBC 2.78 L Hgb 8.2 L Hct 23.9 L MCV MCHC RDW Plt Count Lymph % (Auto) [place] % (Auto) 13.9 H Lymph # [place] # 0.9 H Seg Neutrophils % Seg Neuts % (Manual) Lymphocytes % (Manual) Monocytes % (Manual) Seg Neutrophils # Seg Neutrophils # Man Lymphocytes # (Manual) Monocytes # (Manual) PT INR APTT Heparin Anti-Xa Level POC ABG pH POC ABG pCO2 POC ABG pO2 Sodium Potassium Chloride Carbon Dioxide BUN 28 H Creatinine 2.4 H D Glucose POC Glucose Lactic Acid Calcium 8.3 L Phosphorus Magnesium 1.50 L Iron 24 L TIBC 160 L AST ALT Alkaline Phosphatase Lactate Dehydrogenase Total Creatine Kinase C-Reactive Protein Total Protein Albumin Prealbumin CA 19-9 Antigen Folate 5.39 L PTH Intact Urine WBC (Auto) Urine Creatinine Urine Chloride Urine Total Protein Fluid Glucose Fluid Total Protein Vancomycin Trough Miscellaneous Test Crossmatch 05/17/18 05/18/18 05/18/18 05:08 05:57 05:57 WBC RBC 2.79 L Hgb 8.3 L Hct 24.0 L MCV MCHC 35 H RDW Plt Count Lymph % (Auto) [place] % (Auto) 11.8 H Lymph # [place] # 0.9 H Seg Neutrophils % Seg Neuts % (Manual) Lymphocytes % (Manual) Monocytes % (Manual) Seg Neutrophils # Seg Neutrophils # Man Lymphocytes # (Manual) Monocytes # (Manual) PT INR APTT Heparin Anti-Xa Level POC ABG pH POC ABG pCO2 POC ABG pO2 Sodium Potassium Chloride Carbon Dioxide BUN Creatinine Glucose POC Glucose Lactic Acid Calcium 7.7 L 8.0 L Phosphorus Magnesium 1.60 L Iron TIBC AST ALT Alkaline Phosphatase Lactate Dehydrogenase Total Creatine Kinase C-Reactive Protein Total Protein Albumin Prealbumin CA 19-9 Antigen Folate PTH Intact Urine WBC (Auto) Urine Creatinine Urine Chloride Urine Total Protein Fluid Glucose Fluid Total Protein Vancomycin Trough Miscellaneous Test Crossmatch 05/19/18 05/19/18 05/20/18 05:33 05:33 05:38 WBC RBC 2.95 L Hgb 8.8 L Hct 25.8 L MCV MCHC RDW Plt Count Lymph % (Auto) 10.1 L [place] % (Auto) Lymph # 1.1 L [place] # Seg Neutrophils % 85.2 H Seg Neuts % (Manual) Lymphocytes % (Manual) Monocytes % (Manual) Seg Neutrophils # 9.0 H Seg Neutrophils # Man Lymphocytes # (Manual) Monocytes # (Manual) PT INR APTT Heparin Anti-Xa Level POC ABG pH POC ABG pCO2 POC ABG pO2 Sodium 135 L Potassium Chloride Carbon Dioxide BUN Creatinine Glucose 132 H POC Glucose Lactic Acid Calcium 7.8 L 8.3 L Phosphorus Magnesium 1.40 L Iron TIBC AST ALT Alkaline Phosphatase Lactate Dehydrogenase Total Creatine Kinase C-Reactive Protein Total Protein Albumin Prealbumin CA 19-9 Antigen Folate PTH Intact Urine WBC (Auto) Urine Creatinine Urine Chloride Urine Total Protein Fluid Glucose Fluid Total Protein Vancomycin Trough Miscellaneous Test Crossmatch 05/21/18 05/21/18 05/22/18 04:46 15:30 06:49 WBC 20.0 H RBC 2.70 L Hgb 7.8 L Hct 23.3 L MCV MCHC RDW Plt Count Lymph % (Auto) [place] % (Auto) Lymph # [place] # Seg Neutrophils % Seg Neuts % (Manual) 85.0 H Lymphocytes % (Manual) 4.0 L Monocytes % (Manual) Seg Neutrophils # Seg Neutrophils # Man 17.0 H Lymphocytes # (Manual) 0.8 L Monocytes # (Manual) PT INR APTT Heparin Anti-Xa Level POC ABG pH POC ABG pCO2 POC ABG pO2 Sodium 135 L Potassium 3.5 L Chloride Carbon Dioxide 21 L BUN 22 H Creatinine Glucose POC Glucose Lactic Acid Calcium 8.1 L Phosphorus Magnesium Iron TIBC AST ALT Alkaline Phosphatase Lactate Dehydrogenase Total Creatine Kinase C-Reactive Protein Total Protein Albumin Prealbumin CA 19-9 Antigen Folate PTH Intact Urine WBC (Auto) 28.0 H Urine Creatinine Urine Chloride Urine Total Protein Fluid Glucose Fluid Total Protein Vancomycin Trough Miscellaneous Test Crossmatch 05/22/18 05/22/18 05/23/18 06:49 11:23 09:03 WBC RBC Hgb Hct MCV MCHC RDW Plt Count Lymph % (Auto) [place] % (Auto) Lymph # [place] # Seg Neutrophils % Seg Neuts % (Manual) Lymphocytes % (Manual) Monocytes % (Manual) Seg Neutrophils # Seg Neutrophils # Man Lymphocytes # (Manual) Monocytes # (Manual) PT INR APTT Heparin Anti-Xa Level POC ABG pH POC ABG pCO2 POC ABG pO2 Sodium 134 L Potassium 3.5 L Chloride Carbon Dioxide 21 L BUN 35 H 36 H Creatinine 1.7 H Glucose 107 H POC Glucose Lactic Acid Calcium 7.9 L Phosphorus Magnesium 2.50 H Iron TIBC AST ALT Alkaline Phosphatase Lactate Dehydrogenase Total Creatine Kinase C-Reactive Protein Total Protein Albumin Prealbumin CA 19-9 Antigen Folate PTH Intact Urine WBC (Auto) Urine Creatinine Urine Chloride Urine Total Protein Fluid Glucose Fluid Total Protein Vancomycin Trough Miscellaneous Test Crossmatch See Detail 05/23/18 05/23/18 05/23/18 09:03 09:03 17:34 WBC 26.3 H RBC 3.57 L Hgb 10.4 L Hct 31.1 L D MCV MCHC RDW Plt Count Lymph % (Auto) [place] % (Auto) Lymph # [place] # Seg Neutrophils % Seg Neuts % (Manual) Lymphocytes % (Manual) Monocytes % (Manual) Seg Neutrophils # Seg Neutrophils # Man Lymphocytes # (Manual) Monocytes # (Manual) PT 18.3 H INR 1.43 H APTT 40.0 H Heparin Anti-Xa Level POC ABG pH POC ABG pCO2 POC ABG pO2 Sodium Potassium Chloride Carbon Dioxide BUN Creatinine Glucose POC Glucose 108 H Lactic Acid Calcium Phosphorus Magnesium Iron TIBC AST ALT Alkaline Phosphatase Lactate Dehydrogenase Total Creatine Kinase C-Reactive Protein Total Protein Albumin Prealbumin CA 19-9 Antigen Folate PTH Intact Urine WBC (Auto) Urine Creatinine Urine Chloride Urine Total Protein Fluid Glucose Fluid Total Protein Vancomycin Trough Miscellaneous Test Crossmatch 05/23/18 05/24/18 05/24/18 21:14 04:43 08:04 WBC RBC Hgb Hct MCV MCHC RDW Plt Count Lymph % (Auto) [place] % (Auto) Lymph # [place] # Seg Neutrophils % Seg Neuts % (Manual) Lymphocytes % (Manual) Monocytes % (Manual) Seg Neutrophils # Seg Neutrophils # Man Lymphocytes # (Manual) Monocytes # (Manual) PT INR APTT Heparin Anti-Xa Level POC ABG pH POC ABG pCO2 POC ABG pO2 Sodium 146 H Potassium Chloride 108.6 H Carbon Dioxide BUN 33 H Creatinine Glucose 109 H POC Glucose 110 H 106 H Lactic Acid Calcium 8.3 L Phosphorus Magnesium 2.50 H Iron TIBC AST ALT Alkaline Phosphatase Lactate Dehydrogenase Total Creatine Kinase C-Reactive Protein Total Protein Albumin Prealbumin CA 19-9 Antigen Folate PTH Intact Urine WBC (Auto) Urine Creatinine Urine Chloride Urine Total Protein Fluid Glucose Fluid Total Protein Vancomycin Trough Miscellaneous Test Crossmatch 05/25/18 05/25/18 05/25/18 05:42 05:49 19:50 WBC RBC Hgb Hct MCV MCHC RDW Plt Count Lymph % (Auto) [place] % (Auto) Lymph # [place] # Seg Neutrophils % Seg Neuts % (Manual) Lymphocytes % (Manual) Monocytes % (Manual) Seg Neutrophils # Seg Neutrophils # Man Lymphocytes # (Manual) Monocytes # (Manual) PT INR APTT Heparin Anti-Xa Level POC ABG pH POC ABG pCO2 POC ABG pO2 Sodium 150 H Potassium Chloride 112.5 H Carbon Dioxide BUN 34 H Creatinine Glucose 102 H POC Glucose 107 H Lactic Acid Calcium Phosphorus Magnesium Iron TIBC AST ALT Alkaline Phosphatase Lactate Dehydrogenase Total Creatine Kinase C-Reactive Protein 34.50 H Total Protein Albumin Prealbumin CA 19-9 Antigen Folate PTH Intact Urine WBC (Auto) Urine Creatinine Urine Chloride Urine Total Protein Fluid Glucose Fluid Total Protein Vancomycin Trough Miscellaneous Test Crossmatch 05/25/18 05/25/18 05/25/18 19:50 21:05 22:46 WBC RBC Hgb Hct MCV MCHC RDW Plt Count Lymph % (Auto) [place] % (Auto) Lymph # [place] # Seg Neutrophils % Seg Neuts % (Manual) Lymphocytes % (Manual) Monocytes % (Manual) Seg Neutrophils # Seg Neutrophils # Man Lymphocytes # (Manual) Monocytes # (Manual) PT INR APTT Heparin Anti-Xa Level POC ABG pH 7.483 H POC ABG pCO2 24.0 L POC ABG pO2 72 L Sodium Potassium Chloride Carbon Dioxide BUN Creatinine Glucose POC Glucose Lactic Acid 5.90 H* Calcium Phosphorus Magnesium Iron TIBC AST ALT Alkaline Phosphatase Lactate Dehydrogenase Total Creatine Kinase C-Reactive Protein Total Protein Albumin Prealbumin CA 19-9 Antigen Folate PTH Intact Urine WBC (Auto) Urine Creatinine Urine Chloride Urine Total Protein Fluid Glucose Fluid Total Protein Vancomycin Trough 25.1 H Miscellaneous Test Crossmatch 05/25/18 05/26/18 05/26/18 22:46 00:21 00:51 WBC RBC Hgb Hct MCV MCHC RDW Plt Count Lymph % (Auto) [place] % (Auto) Lymph # [place] # Seg Neutrophils % Seg Neuts % (Manual) Lymphocytes % (Manual) Monocytes % (Manual) Seg Neutrophils # Seg Neutrophils # Man Lymphocytes # (Manual) Monocytes # (Manual) PT INR APTT Heparin Anti-Xa Level POC ABG pH POC ABG pCO2 POC ABG pO2 Sodium Potassium Chloride Carbon Dioxide BUN Creatinine Glucose POC Glucose 133 H Lactic Acid 8.10 H* 6.20 H* Calcium Phosphorus Magnesium Iron TIBC AST ALT Alkaline Phosphatase Lactate Dehydrogenase Total Creatine Kinase C-Reactive Protein Total Protein Albumin Prealbumin CA 19-9 Antigen Folate PTH Intact Urine WBC (Auto) Urine Creatinine Urine Chloride Urine Total Protein Fluid Glucose Fluid Total Protein Vancomycin Trough Miscellaneous Test Crossmatch 05/26/18 05/26/18 05/26/18 01:13 02:24 02:24 WBC 18.7 H RBC Hgb 11.6 L Hct MCV MCHC RDW Plt Count Lymph % (Auto) [place] % (Auto) Lymph # [place] # Seg Neutrophils % Seg Neuts % (Manual) Lymphocytes % (Manual) Monocytes % (Manual) Seg Neutrophils # Seg Neutrophils # Man Lymphocytes # (Manual) Monocytes # (Manual) PT INR APTT Heparin Anti-Xa Level POC ABG pH POC ABG pCO2 POC ABG pO2 Sodium 147 H Potassium 6.2 H* D Chloride 111.9 H Carbon Dioxide 19 L BUN 80 H Creatinine 5.1 H D Glucose 112 H POC Glucose Lactic Acid 5.20 H* Calcium 6.7 L D Phosphorus Magnesium Iron TIBC AST ALT Alkaline Phosphatase Lactate Dehydrogenase Total Creatine Kinase C-Reactive Protein Total Protein Albumin Prealbumin CA 19-9 Antigen Folate PTH Intact Urine WBC (Auto) Urine Creatinine Urine Chloride Urine Total Protein Fluid Glucose Fluid Total Protein Vancomycin Trough Miscellaneous Test Crossmatch 05/26/18 05/26/18 05/26/18 04:20 04:20 05:39 WBC RBC Hgb Hct MCV MCHC RDW Plt Count Lymph % (Auto) [place] % (Auto) Lymph # [place] # Seg Neutrophils % Seg Neuts % (Manual) Lymphocytes % (Manual) Monocytes % (Manual) Seg Neutrophils # Seg Neutrophils # Man Lymphocytes # (Manual) Monocytes # (Manual) PT INR APTT Heparin Anti-Xa Level POC ABG pH POC ABG pCO2 POC ABG pO2 Sodium 150 H Potassium Chloride 110.0 H Carbon Dioxide 19 L BUN 66 H Creatinine Glucose 166 H POC Glucose 187 H Lactic Acid 5.10 H* Calcium 6.9 L Phosphorus 6.70 H D Magnesium Iron TIBC AST ALT Alkaline Phosphatase Lactate Dehydrogenase Total Creatine Kinase C-Reactive Protein Total Protein Albumin Prealbumin CA 19-9 Antigen Folate PTH Intact Urine WBC (Auto) Urine Creatinine Urine Chloride Urine Total Protein Fluid Glucose Fluid Total Protein Vancomycin Trough Miscellaneous Test Crossmatch 05/26/18 05/26/18 05/26/18 06:02 07:29 11:00 WBC RBC Hgb Hct MCV MCHC RDW Plt Count Lymph % (Auto) [place] % (Auto) Lymph # [place] # Seg Neutrophils % Seg Neuts % (Manual) Lymphocytes % (Manual) Monocytes % (Manual) Seg Neutrophils # Seg Neutrophils # Man Lymphocytes # (Manual) Monocytes # (Manual) PT INR APTT Heparin Anti-Xa Level POC ABG pH POC ABG pCO2 28.8 L POC ABG pO2 Sodium Potassium Chloride Carbon Dioxide BUN Creatinine Glucose POC Glucose Lactic Acid 4.80 H* 3.80 H* Calcium Phosphorus Magnesium Iron TIBC AST ALT Alkaline Phosphatase Lactate Dehydrogenase Total Creatine Kinase C-Reactive Protein Total Protein Albumin Prealbumin CA 19-9 Antigen Folate PTH Intact Urine WBC (Auto) Urine Creatinine Urine Chloride Urine Total Protein Fluid Glucose Fluid Total Protein Vancomycin Trough Miscellaneous Test Crossmatch 05/26/18 05/26/18 05/26/18 11:01 12:28 18:00 WBC RBC Hgb Hct MCV MCHC RDW Plt Count Lymph % (Auto) [place] % (Auto) Lymph # [place] # Seg Neutrophils % Seg Neuts % (Manual) Lymphocytes % (Manual) Monocytes % (Manual) Seg Neutrophils # Seg Neutrophils # Man Lymphocytes # (Manual) Monocytes # (Manual) PT INR APTT Heparin Anti-Xa Level POC ABG pH POC ABG pCO2 POC ABG pO2 Sodium 150 H 151 H Potassium 5.3 H D 6.1 H* Chloride 110.3 H 117.0 H Carbon Dioxide 21 L 20 L BUN 75 H 77 H Creatinine 4.3 H D 4.6 H Glucose 161 H POC Glucose 114 H Lactic Acid Calcium 7.5 L 6.7 L Phosphorus Magnesium Iron TIBC AST 1041 H ALT 406 H Alkaline Phosphatase 281 H Lactate Dehydrogenase Total Creatine Kinase C-Reactive Protein Total Protein 4.4 L Albumin 1.3 L Prealbumin CA 19-9 Antigen Folate PTH Intact Urine WBC (Auto) Urine Creatinine Urine Chloride Urine Total Protein Fluid Glucose Fluid Total Protein Vancomycin Trough Miscellaneous Test Crossmatch 05/26/18 05/26/18 05/27/18 18:02 19:17 01:01 WBC 21.7 H RBC 2.70 L Hgb 7.8 L D Hct 24.6 L D MCV MCHC RDW 15.3 H Plt Count Lymph % (Auto) [place] % (Auto) Lymph # [place] # Seg Neutrophils % Seg Neuts % (Manual) 94.0 H Lymphocytes % (Manual) 3.0 L Monocytes % (Manual) Seg Neutrophils # Seg Neutrophils # Man 20.4 H Lymphocytes # (Manual) 0.7 L Monocytes # (Manual) PT INR APTT Heparin Anti-Xa Level POC ABG pH 7.159 L 7.205 L POC ABG pCO2 54.5 H 53.0 H POC ABG pO2 252 H Sodium Potassium Chloride Carbon Dioxide BUN Creatinine Glucose POC Glucose Lactic Acid Calcium Phosphorus Magnesium Iron TIBC AST ALT Alkaline Phosphatase Lactate Dehydrogenase Total Creatine Kinase C-Reactive Protein Total Protein Albumin Prealbumin CA 19-9 Antigen Folate PTH Intact Urine WBC (Auto) Urine Creatinine Urine Chloride Urine Total Protein Fluid Glucose Fluid Total Protein Vancomycin Trough Miscellaneous Test Crossmatch 05/27/18 05/27/18 05/27/18 05:15 05:15 06:11 WBC 24.9 H RBC 2.86 L Hgb 8.1 L Hct 25.9 L MCV MCHC RDW 15.5 H Plt Count Lymph % (Auto) [place] % (Auto) Lymph # [place] # Seg Neutrophils % Seg Neuts % (Manual) Lymphocytes % (Manual) Monocytes % (Manual) Seg Neutrophils # Seg Neutrophils # Man Lymphocytes # (Manual) Monocytes # (Manual) PT INR APTT Heparin Anti-Xa Level POC ABG pH 7.265 L POC ABG pCO2 46.2 H POC ABG pO2 111 H Sodium 149 H Potassium 6.9 H* Chloride 113.5 H Carbon Dioxide BUN 89 H Creatinine 5.2 H Glucose 118 H POC Glucose Lactic Acid Calcium 7.0 L Phosphorus 9.70 H D Magnesium Iron TIBC AST 876 H ALT 408 H Alkaline Phosphatase Lactate Dehydrogenase Total Creatine Kinase C-Reactive Protein Total Protein 5.2 L Albumin 1.5 L Prealbumin CA 19-9 Antigen Folate PTH Intact Urine WBC (Auto) Urine Creatinine Urine Chloride Urine Total Protein Fluid Glucose Fluid Total Protein Vancomycin Trough Miscellaneous Test Crossmatch 05/27/18 05/27/18 05/27/18 08:48 10:22 10:22 WBC RBC Hgb Hct MCV MCHC RDW Plt Count Lymph % (Auto) [place] % (Auto) Lymph # [place] # Seg Neutrophils % Seg Neuts % (Manual) Lymphocytes % (Manual) Monocytes % (Manual) Seg Neutrophils # Seg Neutrophils # Man Lymphocytes # (Manual) Monocytes # (Manual) PT INR APTT Heparin Anti-Xa Level POC ABG pH POC ABG pCO2 POC ABG pO2 Sodium 146 H Potassium 6.1 H* Chloride 108.2 H Carbon Dioxide 21 L BUN 88 H Creatinine 5.6 H Glucose 163 H POC Glucose 164 H Lactic Acid Calcium 6.7 L Phosphorus Magnesium Iron TIBC AST ALT Alkaline Phosphatase Lactate Dehydrogenase Total Creatine Kinase C-Reactive Protein 40.70 H Total Protein Albumin Prealbumin CA 19-9 Antigen Folate PTH Intact Urine WBC (Auto) Urine Creatinine Urine Chloride Urine Total Protein Fluid Glucose Fluid Total Protein Vancomycin Trough Miscellaneous Test Crossmatch 05/27/18 05/27/18 05/27/18 13:02 17:39 23:27 WBC RBC Hgb Hct MCV MCHC RDW Plt Count Lymph % (Auto) [place] % (Auto) Lymph # [place] # Seg Neutrophils % Seg Neuts % (Manual) Lymphocytes % (Manual) Monocytes % (Manual) Seg Neutrophils # Seg Neutrophils # Man Lymphocytes # (Manual) Monocytes # (Manual) PT INR APTT Heparin Anti-Xa Level POC ABG pH POC ABG pCO2 POC ABG pO2 Sodium Potassium Chloride Carbon Dioxide BUN Creatinine Glucose POC Glucose 59 L 132 H Lactic Acid Calcium Phosphorus Magnesium Iron TIBC AST ALT Alkaline Phosphatase Lactate Dehydrogenase Total Creatine Kinase C-Reactive Protein Total Protein Albumin Prealbumin CA 19-9 Antigen Folate PTH Intact Urine WBC (Auto) Urine Creatinine Urine Chloride Urine Total Protein Fluid Glucose Fluid Total Protein Vancomycin Trough Miscellaneous Test Flexitest 1 H Crossmatch 05/27/18 05/28/18 05/28/18 Unknown 04:32 05:00 WBC RBC Hgb Hct MCV MCHC RDW Plt Count Lymph % (Auto) [place] % (Auto) Lymph # [place] # Seg Neutrophils % Seg Neuts % (Manual) Lymphocytes % (Manual) Monocytes % (Manual) Seg Neutrophils # Seg Neutrophils # Man Lymphocytes # (Manual) Monocytes # (Manual) PT INR APTT Heparin Anti-Xa Level POC ABG pH POC ABG pCO2 POC ABG pO2 134 H Sodium Potassium Chloride Carbon Dioxide BUN 69 H Creatinine 4.4 H Glucose 118 H POC Glucose Lactic Acid Calcium 8.0 L D Phosphorus 6.80 H D Magnesium Iron TIBC AST ALT Alkaline Phosphatase Lactate Dehydrogenase Total Creatine Kinase C-Reactive Protein Total Protein Albumin Prealbumin CA 19-9 Antigen Folate PTH Intact Urine WBC (Auto) 120.0 H Urine Creatinine Urine Chloride Urine Total Protein Fluid Glucose Fluid Total Protein Vancomycin Trough Miscellaneous Test Crossmatch 05/28/18 05/28/18 05/28/18 05:00 05:27 13:04 WBC 26.5 H RBC 2.69 L Hgb 7.7 L Hct 23.6 L MCV MCHC RDW Plt Count Lymph % (Auto) [place] % (Auto) Lymph # [place] # Seg Neutrophils % Seg Neuts % (Manual) 96.0 H Lymphocytes % (Manual) 0 L Monocytes % (Manual) Seg Neutrophils # Seg Neutrophils # Man 25.4 H Lymphocytes # (Manual) 0.0 L Monocytes # (Manual) PT INR APTT Heparin Anti-Xa Level POC ABG pH POC ABG pCO2 POC ABG pO2 Sodium Potassium Chloride Carbon Dioxide BUN Creatinine Glucose POC Glucose 128 H 155 H Lactic Acid Calcium Phosphorus Magnesium Iron TIBC AST ALT Alkaline Phosphatase Lactate Dehydrogenase Total Creatine Kinase C-Reactive Protein Total Protein Albumin Prealbumin CA 19-9 Antigen Folate PTH Intact Urine WBC (Auto) Urine Creatinine Urine Chloride Urine Total Protein Fluid Glucose Fluid Total Protein Vancomycin Trough Miscellaneous Test Crossmatch 05/28/18 05/29/18 05/29/18 17:56 03:35 04:00 WBC RBC Hgb Hct MCV MCHC RDW Plt Count Lymph % (Auto) [place] % (Auto) Lymph # [place] # Seg Neutrophils % Seg Neuts % (Manual) Lymphocytes % (Manual) Monocytes % (Manual) Seg Neutrophils # Seg Neutrophils # Man Lymphocytes # (Manual) Monocytes # (Manual) PT INR APTT Heparin Anti-Xa Level POC ABG pH 7.471 H POC ABG pCO2 POC ABG pO2 78 L Sodium Potassium Chloride Carbon Dioxide BUN 50 H Creatinine 3.9 H Glucose POC Glucose 110 H Lactic Acid Calcium 7.7 L Phosphorus Magnesium 1.50 L Iron TIBC AST 218 H ALT 204 H Alkaline Phosphatase Lactate Dehydrogenase Total Creatine Kinase C-Reactive Protein Total Protein 5.4 L Albumin 1.6 L Prealbumin CA 19-9 Antigen Folate PTH Intact Urine WBC (Auto) Urine Creatinine Urine Chloride Urine Total Protein Fluid Glucose Fluid Total Protein Vancomycin Trough Miscellaneous Test Crossmatch 05/29/18 05/29/18 05/30/18 11:51 23:56 04:54 WBC RBC Hgb Hct MCV MCHC RDW Plt Count Lymph % (Auto) [place] % (Auto) Lymph # [place] # Seg Neutrophils % Seg Neuts % (Manual) Lymphocytes % (Manual) Monocytes % (Manual) Seg Neutrophils # Seg Neutrophils # Man Lymphocytes # (Manual) Monocytes # (Manual) PT INR APTT Heparin Anti-Xa Level POC ABG pH POC ABG pCO2 POC ABG pO2 Sodium Potassium Chloride Carbon Dioxide BUN Creatinine Glucose POC Glucose 131 H 119 H 115 H Lactic Acid Calcium Phosphorus Magnesium Iron TIBC AST ALT Alkaline Phosphatase Lactate Dehydrogenase Total Creatine Kinase C-Reactive Protein Total Protein Albumin Prealbumin CA 19-9 Antigen Folate PTH Intact Urine WBC (Auto) Urine Creatinine Urine Chloride Urine Total Protein Fluid Glucose Fluid Total Protein Vancomycin Trough Miscellaneous Test Crossmatch 05/30/18 05/30/18 05/30/18 05:07 05:15 05:15 WBC 16.2 H RBC 2.53 L Hgb 7.4 L Hct 21.9 L MCV MCHC RDW Plt Count Lymph % (Auto) [place] % (Auto) Lymph # [place] # Seg Neutrophils % Seg Neuts % (Manual) Lymphocytes % (Manual) Monocytes % (Manual) Seg Neutrophils # Seg Neutrophils # Man Lymphocytes # (Manual) Monocytes # (Manual) PT INR APTT Heparin Anti-Xa Level POC ABG pH POC ABG pCO2 34.5 L POC ABG pO2 133 H Sodium 135 L Potassium Chloride 97.5 L Carbon Dioxide BUN 69 H Creatinine 5.4 H Glucose 105 H POC Glucose Lactic Acid Calcium 7.5 L Phosphorus 5.30 H D Magnesium Iron TIBC AST ALT Alkaline Phosphatase Lactate Dehydrogenase Total Creatine Kinase C-Reactive Protein Total Protein Albumin Prealbumin CA 19-9 Antigen Folate PTH Intact Urine WBC (Auto) Urine Creatinine Urine Chloride Urine Total Protein Fluid Glucose Fluid Total Protein Vancomycin Trough Miscellaneous Test Crossmatch 05/30/18 05/30/18 05/31/18 12:13 17:10 04:50 WBC 18.7 H RBC 2.86 L Hgb 8.2 L Hct 24.8 L MCV MCHC RDW Plt Count Lymph % (Auto) [place] % (Auto) Lymph # [place] # Seg Neutrophils % Seg Neuts % (Manual) 91.0 H Lymphocytes % (Manual) 2.0 L Monocytes % (Manual) Seg Neutrophils # Seg Neutrophils # Man 17.0 H Lymphocytes # (Manual) 0.4 L Monocytes # (Manual) PT INR APTT Heparin Anti-Xa Level POC ABG pH POC ABG pCO2 POC ABG pO2 Sodium Potassium Chloride Carbon Dioxide BUN Creatinine Glucose POC Glucose 132 H 122 H Lactic Acid Calcium Phosphorus Magnesium Iron TIBC AST ALT Alkaline Phosphatase Lactate Dehydrogenase Total Creatine Kinase C-Reactive Protein Total Protein Albumin Prealbumin CA 19-9 Antigen Folate PTH Intact Urine WBC (Auto) Urine Creatinine Urine Chloride Urine Total Protein Fluid Glucose Fluid Total Protein Vancomycin Trough Miscellaneous Test Crossmatch 05/31/18 05/31/18 05/31/18 04:50 05:45 11:37 WBC RBC Hgb Hct MCV MCHC RDW Plt Count Lymph % (Auto) [place] % (Auto) Lymph # [place] # Seg Neutrophils % Seg Neuts % (Manual) Lymphocytes % (Manual) Monocytes % (Manual) Seg Neutrophils # Seg Neutrophils # Man Lymphocytes # (Manual) Monocytes # (Manual) PT INR APTT Heparin Anti-Xa Level POC ABG pH POC ABG pCO2 POC ABG pO2 Sodium 132 L Potassium Chloride 92.4 L Carbon Dioxide BUN 77 H Creatinine 5.9 H Glucose POC Glucose 111 H 136 H Lactic Acid Calcium 7.3 L Phosphorus 6.40 H D Magnesium Iron TIBC AST ALT Alkaline Phosphatase Lactate Dehydrogenase Total Creatine Kinase C-Reactive Protein Total Protein Albumin Prealbumin CA 19-9 Antigen Folate PTH Intact Urine WBC (Auto) Urine Creatinine Urine Chloride Urine Total Protein Fluid Glucose Fluid Total Protein Vancomycin Trough Miscellaneous Test Crossmatch 05/31/18 06/01/18 06/01/18 17:52 00:09 04:00 WBC RBC Hgb Hct MCV MCHC RDW Plt Count Lymph % (Auto) [place] % (Auto) Lymph # [place] # Seg Neutrophils % Seg Neuts % (Manual) Lymphocytes % (Manual) Monocytes % (Manual) Seg Neutrophils # Seg Neutrophils # Man Lymphocytes # (Manual) Monocytes # (Manual) PT INR APTT Heparin Anti-Xa Level POC ABG pH POC ABG pCO2 POC ABG pO2 Sodium Potassium Chloride 97.5 L Carbon Dioxide BUN 49 H Creatinine 4.2 H Glucose 104 H POC Glucose 115 H 114 H Lactic Acid Calcium 7.3 L Phosphorus 4.70 H D Magnesium Iron TIBC AST ALT Alkaline Phosphatase Lactate Dehydrogenase Total Creatine Kinase C-Reactive Protein Total Protein Albumin Prealbumin CA 19-9 Antigen Folate PTH Intact Urine WBC (Auto) Urine Creatinine Urine Chloride Urine Total Protein Fluid Glucose Fluid Total Protein Vancomycin Trough Miscellaneous Test Crossmatch 06/01/18 06/01/18 06/02/18 11:10 17:56 00:15 WBC RBC Hgb Hct MCV MCHC RDW Plt Count Lymph % (Auto) [place] % (Auto) Lymph # [place] # Seg Neutrophils % Seg Neuts % (Manual) Lymphocytes % (Manual) Monocytes % (Manual) Seg Neutrophils # Seg Neutrophils # Man Lymphocytes # (Manual) Monocytes # (Manual) PT INR APTT Heparin Anti-Xa Level POC ABG pH POC ABG pCO2 POC ABG pO2 Sodium Potassium Chloride Carbon Dioxide BUN Creatinine Glucose POC Glucose 123 H 126 H 135 H Lactic Acid Calcium Phosphorus Magnesium Iron TIBC AST ALT Alkaline Phosphatase Lactate Dehydrogenase Total Creatine Kinase C-Reactive Protein Total Protein Albumin Prealbumin CA 19-9 Antigen Folate PTH Intact Urine WBC (Auto) Urine Creatinine Urine Chloride Urine Total Protein Fluid Glucose Fluid Total Protein Vancomycin Trough Miscellaneous Test Crossmatch 06/02/18 06/02/18 06/02/18 05:23 12:42 13:05 WBC RBC Hgb Hct MCV MCHC RDW Plt Count Lymph % (Auto) [place] % (Auto) Lymph # [place] # Seg Neutrophils % Seg Neuts % (Manual) Lymphocytes % (Manual) Monocytes % (Manual) Seg Neutrophils # Seg Neutrophils # Man Lymphocytes # (Manual) Monocytes # (Manual) PT 17.1 H INR 1.34 H APTT Heparin Anti-Xa Level POC ABG pH POC ABG pCO2 POC ABG pO2 Sodium Potassium Chloride Carbon Dioxide BUN Creatinine Glucose POC Glucose 135 H 142 H Lactic Acid Calcium Phosphorus Magnesium Iron TIBC AST ALT Alkaline Phosphatase Lactate Dehydrogenase Total Creatine Kinase C-Reactive Protein Total Protein Albumin Prealbumin CA 19-9 Antigen Folate PTH Intact Urine WBC (Auto) Urine Creatinine Urine Chloride Urine Total Protein Fluid Glucose Fluid Total Protein Vancomycin Trough Miscellaneous Test Crossmatch 06/02/18 06/02/18 06/03/18 Unknown Unknown 00:54 WBC 20.8 H RBC 2.67 L Hgb 7.7 L Hct 23.0 L MCV MCHC RDW Plt Count 500 H Lymph % (Auto) [place] % (Auto) Lymph # [place] # Seg Neutrophils % Seg Neuts % (Manual) Lymphocytes % (Manual) Monocytes % (Manual) Seg Neutrophils # Seg Neutrophils # Man Lymphocytes # (Manual) Monocytes # (Manual) PT INR APTT Heparin Anti-Xa Level POC ABG pH POC ABG pCO2 POC ABG pO2 Sodium 136 L Potassium 3.5 L Chloride 96.9 L Carbon Dioxide BUN 62 H Creatinine 4.9 H Glucose 133 H POC Glucose 125 H Lactic Acid Calcium 7.2 L Phosphorus 5.00 H Magnesium Iron TIBC AST 46 H ALT 66 H Alkaline Phosphatase Lactate Dehydrogenase Total Creatine Kinase C-Reactive Protein Total Protein 5.7 L Albumin 1.5 L Prealbumin CA 19-9 Antigen Folate PTH Intact Urine WBC (Auto) Urine Creatinine Urine Chloride Urine Total Protein Fluid Glucose Fluid Total Protein Vancomycin Trough Miscellaneous Test Crossmatch 06/03/18 06/03/18 06/03/18 03:31 09:18 09:18 WBC RBC Hgb Hct MCV MCHC RDW Plt Count Lymph % (Auto) [place] % (Auto) Lymph # [place] # Seg Neutrophils % Seg Neuts % (Manual) Lymphocytes % (Manual) Monocytes % (Manual) Seg Neutrophils # Seg Neutrophils # Man Lymphocytes # (Manual) Monocytes # (Manual) PT 17.1 H INR 1.34 H APTT Heparin Anti-Xa Level POC ABG pH POC ABG pCO2 POC ABG pO2 Sodium 136 L Potassium Chloride Carbon Dioxide BUN 41 H Creatinine 3.4 H Glucose 129 H POC Glucose Lactic Acid Calcium 7.4 L Phosphorus Magnesium Iron TIBC AST ALT Alkaline Phosphatase Lactate Dehydrogenase Total Creatine Kinase C-Reactive Protein 11.10 H Total Protein Albumin Prealbumin CA 19-9 Antigen Folate PTH Intact Urine WBC (Auto) Urine Creatinine Urine Chloride Urine Total Protein Fluid Glucose Fluid Total Protein Vancomycin Trough Miscellaneous Test Crossmatch 06/03/18 06/03/18 06/03/18 16:07 21:18 Unknown WBC RBC Hgb Hct MCV MCHC RDW Plt Count Lymph % (Auto) [place] % (Auto) Lymph # [place] # Seg Neutrophils % Seg Neuts % (Manual) Lymphocytes % (Manual) Monocytes % (Manual) Seg Neutrophils # Seg Neutrophils # Man Lymphocytes # (Manual) Monocytes # (Manual) PT INR APTT Heparin Anti-Xa Level POC ABG pH POC ABG pCO2 POC ABG pO2 Sodium Potassium Chloride Carbon Dioxide BUN Creatinine Glucose POC Glucose 144 H 128 H Lactic Acid Calcium Phosphorus Magnesium Iron TIBC AST ALT Alkaline Phosphatase Lactate Dehydrogenase Total Creatine Kinase C-Reactive Protein Total Protein Albumin Prealbumin CA 19-9 Antigen Folate PTH Intact Urine WBC (Auto) Urine Creatinine Urine Chloride Urine Total Protein Fluid Glucose 10 L Fluid Total Protein 3.7 L Vancomycin Trough Miscellaneous Test Crossmatch 06/04/18 06/04/18 06/04/18 04:31 06:14 11:38 WBC RBC Hgb Hct MCV MCHC RDW Plt Count Lymph % (Auto) [place] % (Auto) Lymph # [place] # Seg Neutrophils % Seg Neuts % (Manual) Lymphocytes % (Manual) Monocytes % (Manual) Seg Neutrophils # Seg Neutrophils # Man Lymphocytes # (Manual) Monocytes # (Manual) PT INR APTT Heparin Anti-Xa Level POC ABG pH POC ABG pCO2 POC ABG pO2 Sodium Potassium Chloride Carbon Dioxide BUN 55 H Creatinine 3.7 H Glucose 151 H POC Glucose 145 H 129 H Lactic Acid Calcium 7.8 L Phosphorus 4.60 H Magnesium Iron TIBC AST ALT Alkaline Phosphatase Lactate Dehydrogenase Total Creatine Kinase C-Reactive Protein Total Protein Albumin Prealbumin CA 19-9 Antigen Folate PTH Intact Urine WBC (Auto) Urine Creatinine Urine Chloride Urine Total Protein Fluid Glucose Fluid Total Protein Vancomycin Trough Miscellaneous Test Crossmatch 06/04/18 06/04/18 06/04/18 17:09 20:00 21:29 WBC RBC Hgb 8.8 L Hct 27.3 L MCV MCHC RDW Plt Count Lymph % (Auto) [place] % (Auto) Lymph # [place] # Seg Neutrophils % Seg Neuts % (Manual) Lymphocytes % (Manual) Monocytes % (Manual) Seg Neutrophils # Seg Neutrophils # Man Lymphocytes # (Manual) Monocytes # (Manual) PT INR APTT Heparin Anti-Xa Level POC ABG pH POC ABG pCO2 POC ABG pO2 Sodium Potassium Chloride Carbon Dioxide BUN Creatinine Glucose POC Glucose 142 H 130 H Lactic Acid Calcium Phosphorus Magnesium Iron TIBC AST ALT Alkaline Phosphatase Lactate Dehydrogenase Total Creatine Kinase C-Reactive Protein Total Protein Albumin Prealbumin CA 19-9 Antigen Folate PTH Intact Urine WBC (Auto) Urine Creatinine Urine Chloride Urine Total Protein Fluid Glucose Fluid Total Protein Vancomycin Trough Miscellaneous Test Crossmatch 06/05/18 06/05/18 06/05/18 06:30 07:00 07:00 WBC 19.3 H RBC 2.94 L Hgb 8.3 L Hct 25.6 L MCV MCHC RDW 15.7 H Plt Count 568 H Lymph % (Auto) 4.7 L [place] % (Auto) Lymph # 0.9 L [place] # 1.1 H Seg Neutrophils % 88.9 H Seg Neuts % (Manual) Lymphocytes % (Manual) Monocytes % (Manual) Seg Neutrophils # 17.2 H Seg Neutrophils # Man Lymphocytes # (Manual) Monocytes # (Manual) PT INR APTT Heparin Anti-Xa Level POC ABG pH POC ABG pCO2 POC ABG pO2 Sodium Potassium 3.4 L D Chloride Carbon Dioxide BUN 67 H Creatinine 3.6 H Glucose 145 H POC Glucose 153 H Lactic Acid Calcium 7.9 L Phosphorus 4.60 H Magnesium Iron TIBC AST ALT Alkaline Phosphatase Lactate Dehydrogenase Total Creatine Kinase C-Reactive Protein Total Protein Albumin Prealbumin CA 19-9 Antigen Folate PTH Intact Urine WBC (Auto) Urine Creatinine Urine Chloride Urine Total Protein Fluid Glucose Fluid Total Protein Vancomycin Trough Miscellaneous Test Crossmatch 06/05/18 06/05/18 06/06/18 12:10 16:01 06:39 WBC RBC Hgb Hct MCV MCHC RDW Plt Count Lymph % (Auto) [place] % (Auto) Lymph # [place] # Seg Neutrophils % Seg Neuts % (Manual) Lymphocytes % (Manual) Monocytes % (Manual) Seg Neutrophils # Seg Neutrophils # Man Lymphocytes # (Manual) Monocytes # (Manual) PT INR APTT Heparin Anti-Xa Level POC ABG pH POC ABG pCO2 POC ABG pO2 Sodium Potassium Chloride Carbon Dioxide BUN Creatinine Glucose POC Glucose 150 H 129 H 131 H Lactic Acid Calcium Phosphorus Magnesium Iron TIBC AST ALT Alkaline Phosphatase Lactate Dehydrogenase Total Creatine Kinase C-Reactive Protein Total Protein Albumin Prealbumin CA 19-9 Antigen Folate PTH Intact Urine WBC (Auto) Urine Creatinine Urine Chloride Urine Total Protein Fluid Glucose Fluid Total Protein Vancomycin Trough Miscellaneous Test Crossmatch 06/06/18 06/06/18 06/06/18 07:14 07:14 07:14 WBC 16.5 H RBC 2.84 L Hgb 8.1 L Hct 25.2 L MCV MCHC RDW 16.4 H Plt Count 526 H Lymph % (Auto) 6.5 L [place] % (Auto) Lymph # 1.1 L [place] # 1.2 H Seg Neutrophils % 85.3 H Seg Neuts % (Manual) Lymphocytes % (Manual) Monocytes % (Manual) Seg Neutrophils # 14.1 H Seg Neutrophils # Man Lymphocytes # (Manual) Monocytes # (Manual) PT INR APTT Heparin Anti-Xa Level POC ABG pH POC ABG pCO2 POC ABG pO2 Sodium Potassium Chloride 109.1 H Carbon Dioxide 21 L BUN 76 H Creatinine 3.5 H Glucose 111 H POC Glucose Lactic Acid Calcium 8.1 L Phosphorus Magnesium Iron TIBC AST ALT Alkaline Phosphatase Lactate Dehydrogenase Total Creatine Kinase C-Reactive Protein 4.70 H Total Protein Albumin Prealbumin CA 19-9 Antigen Folate PTH Intact Urine WBC (Auto) Urine Creatinine Urine Chloride Urine Total Protein Fluid Glucose Fluid Total Protein Vancomycin Trough Miscellaneous Test Crossmatch 06/06/18 06/06/18 06/06/18 11:15 18:00 23:58 WBC RBC Hgb Hct MCV MCHC RDW Plt Count Lymph % (Auto) [place] % (Auto) Lymph # [place] # Seg Neutrophils % Seg Neuts % (Manual) Lymphocytes % (Manual) Monocytes % (Manual) Seg Neutrophils # Seg Neutrophils # Man Lymphocytes # (Manual) Monocytes # (Manual) PT INR APTT Heparin Anti-Xa Level POC ABG pH POC ABG pCO2 POC ABG pO2 Sodium Potassium Chloride Carbon Dioxide BUN Creatinine Glucose POC Glucose 127 H 130 H 114 H Lactic Acid Calcium Phosphorus Magnesium Iron TIBC AST ALT Alkaline Phosphatase Lactate Dehydrogenase Total Creatine Kinase C-Reactive Protein Total Protein Albumin Prealbumin CA 19-9 Antigen Folate PTH Intact Urine WBC (Auto) Urine Creatinine Urine Chloride Urine Total Protein Fluid Glucose Fluid Total Protein Vancomycin Trough Miscellaneous Test Crossmatch 06/07/18 06/07/18 06/07/18 05:45 05:45 05:54 WBC 15.5 H RBC 2.60 L Hgb 7.4 L Hct 23.1 L MCV MCHC RDW 16.5 H Plt Count 506 H Lymph % (Auto) 5.3 L [place] % (Auto) Lymph # 0.8 L [place] # 1.0 H Seg Neutrophils % 86.6 H Seg Neuts % (Manual) Lymphocytes % (Manual) Monocytes % (Manual) Seg Neutrophils # 13.4 H Seg Neutrophils # Man Lymphocytes # (Manual) Monocytes # (Manual) PT INR APTT Heparin Anti-Xa Level POC ABG pH POC ABG pCO2 POC ABG pO2 Sodium Potassium Chloride 108.4 H Carbon Dioxide BUN 84 H Creatinine 3.5 H Glucose 119 H POC Glucose 114 H Lactic Acid Calcium 8.1 L Phosphorus 5.10 H Magnesium Iron TIBC AST ALT Alkaline Phosphatase Lactate Dehydrogenase Total Creatine Kinase C-Reactive Protein Total Protein Albumin Prealbumin CA 19-9 Antigen Folate PTH Intact Urine WBC (Auto) Urine Creatinine Urine Chloride Urine Total Protein Fluid Glucose Fluid Total Protein Vancomycin Trough Miscellaneous Test Crossmatch 06/07/18 06/08/18 06/08/18 12:15 05:05 05:24 WBC RBC Hgb Hct MCV MCHC RDW Plt Count Lymph % (Auto) [place] % (Auto) Lymph # [place] # Seg Neutrophils % Seg Neuts % (Manual) Lymphocytes % (Manual) Monocytes % (Manual) Seg Neutrophils # Seg Neutrophils # Man Lymphocytes # (Manual) Monocytes # (Manual) PT INR APTT Heparin Anti-Xa Level POC ABG pH POC ABG pCO2 POC ABG pO2 Sodium 148 H Potassium Chloride 112.4 H Carbon Dioxide BUN 89 H Creatinine 3.4 H Glucose 120 H POC Glucose 148 H 115 H Lactic Acid Calcium 7.9 L Phosphorus Magnesium Iron TIBC AST ALT Alkaline Phosphatase Lactate Dehydrogenase Total Creatine Kinase C-Reactive Protein Total Protein Albumin Prealbumin CA 19-9 Antigen Folate PTH Intact Urine WBC (Auto) Urine Creatinine Urine Chloride Urine Total Protein Fluid Glucose Fluid Total Protein Vancomycin Trough Miscellaneous Test Crossmatch 06/08/18 06/08/18 06/08/18 21:36 21:43 21:43 WBC RBC 2.98 L Hgb 8.8 L Hct 26.6 L MCV MCHC RDW 16.7 H Plt Count 463 H Lymph % (Auto) 7.9 L [place] % (Auto) Lymph # 0.8 L [place] # Seg Neutrophils % 84.8 H Seg Neuts % (Manual) Lymphocytes % (Manual) Monocytes % (Manual) Seg Neutrophils # 8.6 H Seg Neutrophils # Man Lymphocytes # (Manual) Monocytes # (Manual) PT INR APTT Heparin Anti-Xa Level POC ABG pH POC ABG pCO2 POC ABG pO2 Sodium Potassium Chloride Carbon Dioxide BUN Creatinine Glucose POC Glucose Lactic Acid Calcium Phosphorus Magnesium Iron TIBC AST ALT Alkaline Phosphatase Lactate Dehydrogenase 297 H Total Creatine Kinase C-Reactive Protein Total Protein Albumin Prealbumin CA 19-9 Antigen 57 H Folate PTH Intact Urine WBC (Auto) Urine Creatinine Urine Chloride Urine Total Protein Fluid Glucose Fluid Total Protein Vancomycin Trough Miscellaneous Test Crossmatch 06/09/18 06/09/18 06/09/18 00:05 05:34 05:50 WBC RBC Hgb Hct MCV MCHC RDW Plt Count Lymph % (Auto) [place] % (Auto) Lymph # [place] # Seg Neutrophils % Seg Neuts % (Manual) Lymphocytes % (Manual) Monocytes % (Manual) Seg Neutrophils # Seg Neutrophils # Man Lymphocytes # (Manual) Monocytes # (Manual) PT INR APTT Heparin Anti-Xa Level POC ABG pH POC ABG pCO2 POC ABG pO2 Sodium 153 H Potassium Chloride 117.3 H Carbon Dioxide BUN 84 H Creatinine 3.2 H Glucose 117 H POC Glucose 140 H 146 H Lactic Acid Calcium 7.9 L Phosphorus Magnesium Iron TIBC AST ALT Alkaline Phosphatase Lactate Dehydrogenase Total Creatine Kinase C-Reactive Protein Total Protein Albumin Prealbumin CA 19-9 Antigen Folate PTH Intact Urine WBC (Auto) Urine Creatinine Urine Chloride Urine Total Protein Fluid Glucose Fluid Total Protein Vancomycin Trough Miscellaneous Test Crossmatch 06/09/18 06/09/18 06/09/18 05:50 07:37 10:34 WBC RBC 2.32 L Hgb 6.8 L Hct 20.7 L MCV MCHC RDW 16.7 H Plt Count Lymph % (Auto) [place] % (Auto) Lymph # [place] # Seg Neutrophils % Seg Neuts % (Manual) Lymphocytes % (Manual) Monocytes % (Manual) Seg Neutrophils # Seg Neutrophils # Man Lymphocytes # (Manual) Monocytes # (Manual) PT INR APTT Heparin Anti-Xa Level POC ABG pH POC ABG pCO2 POC ABG pO2 Sodium 149 H Potassium Chloride 114.6 H Carbon Dioxide BUN 84 H Creatinine 3.1 H Glucose 137 H POC Glucose Lactic Acid Calcium 7.7 L Phosphorus Magnesium Iron TIBC AST ALT Alkaline Phosphatase Lactate Dehydrogenase Total Creatine Kinase C-Reactive Protein Total Protein Albumin Prealbumin CA 19-9 Antigen Folate PTH Intact Urine WBC (Auto) Urine Creatinine Urine Chloride Urine Total Protein Fluid Glucose Fluid Total Protein Vancomycin Trough Miscellaneous Test Flexitest 1 H Crossmatch 06/09/18 06/09/18 06/09/18 10:41 11:56 13:24 WBC RBC 2.43 L Hgb 7.2 L Hct 21.6 L MCV MCHC RDW 16.8 H Plt Count Lymph % (Auto) [place] % (Auto) Lymph # [place] # Seg Neutrophils % Seg Neuts % (Manual) Lymphocytes % (Manual) Monocytes % (Manual) Seg Neutrophils # Seg Neutrophils # Man Lymphocytes # (Manual) Monocytes # (Manual) PT INR APTT Heparin Anti-Xa Level POC ABG pH POC ABG pCO2 POC ABG pO2 Sodium Potassium Chloride Carbon Dioxide BUN Creatinine Glucose POC Glucose 141 H Lactic Acid Calcium Phosphorus Magnesium Iron TIBC AST ALT Alkaline Phosphatase Lactate Dehydrogenase Total Creatine Kinase C-Reactive Protein Total Protein Albumin Prealbumin CA 19-9 Antigen Folate PTH Intact Urine WBC (Auto) Urine Creatinine Urine Chloride Urine Total Protein Fluid Glucose Fluid Total Protein Vancomycin Trough Miscellaneous Test Crossmatch See Detail 06/09/18 06/09/18 06/10/18 18:18 23:13 05:26 WBC RBC Hgb Hct MCV MCHC RDW Plt Count Lymph % (Auto) [place] % (Auto) Lymph # [place] # Seg Neutrophils % Seg Neuts % (Manual) Lymphocytes % (Manual) Monocytes % (Manual) Seg Neutrophils # Seg Neutrophils # Man Lymphocytes # (Manual) Monocytes # (Manual) PT INR APTT Heparin Anti-Xa Level POC ABG pH POC ABG pCO2 POC ABG pO2 Sodium 148 H Potassium Chloride 114.7 H Carbon Dioxide 21 L BUN 79 H Creatinine 3.2 H Glucose 121 H POC Glucose 156 H 163 H Lactic Acid Calcium 7.8 L Phosphorus Magnesium 1.60 L Iron TIBC AST ALT Alkaline Phosphatase Lactate Dehydrogenase Total Creatine Kinase C-Reactive Protein Total Protein Albumin Prealbumin CA 19-9 Antigen Folate PTH Intact Urine WBC (Auto) Urine Creatinine Urine Chloride Urine Total Protein Fluid Glucose Fluid Total Protein Vancomycin Trough Miscellaneous Test Crossmatch 06/10/18 06/10/18 06/10/18 05:26 05:31 17:15 WBC 11.1 H RBC 3.07 L Hgb 9.1 L Hct 27.6 L D MCV MCHC RDW 17.4 H Plt Count Lymph % (Auto) [place] % (Auto) Lymph # [place] # Seg Neutrophils % Seg Neuts % (Manual) Lymphocytes % (Manual) Monocytes % (Manual) Seg Neutrophils # Seg Neutrophils # Man Lymphocytes # (Manual) Monocytes # (Manual) PT INR APTT Heparin Anti-Xa Level POC ABG pH POC ABG pCO2 POC ABG pO2 Sodium Potassium Chloride Carbon Dioxide BUN Creatinine Glucose POC Glucose 128 H Lactic Acid Calcium Phosphorus Magnesium Iron TIBC AST ALT Alkaline Phosphatase Lactate Dehydrogenase Total Creatine Kinase C-Reactive Protein 3.60 H Total Protein Albumin Prealbumin CA 19-9 Antigen Folate PTH Intact Urine WBC (Auto) Urine Creatinine Urine Chloride Urine Total Protein Fluid Glucose Fluid Total Protein Vancomycin Trough Miscellaneous Test Crossmatch 06/11/18 06/11/18 06/11/18 01:13 05:41 05:41 WBC 14.6 H RBC 3.40 L Hgb 9.8 L Hct 30.7 L MCV MCHC RDW 18.1 H Plt Count Lymph % (Auto) [place] % (Auto) Lymph # [place] # Seg Neutrophils % Seg Neuts % (Manual) Lymphocytes % (Manual) Monocytes % (Manual) Seg Neutrophils # Seg Neutrophils # Man Lymphocytes # (Manual) Monocytes # (Manual) PT INR APTT Heparin Anti-Xa Level POC ABG pH POC ABG pCO2 POC ABG pO2 Sodium Potassium Chloride 110.8 H Carbon Dioxide 18 L BUN 77 H Creatinine 3.0 H Glucose 116 H POC Glucose 126 H Lactic Acid Calcium 7.9 L Phosphorus Magnesium Iron TIBC AST ALT Alkaline Phosphatase Lactate Dehydrogenase Total Creatine Kinase C-Reactive Protein Total Protein Albumin Prealbumin CA 19-9 Antigen Folate PTH Intact Urine WBC (Auto) Urine Creatinine Urine Chloride Urine Total Protein Fluid Glucose Fluid Total Protein Vancomycin Trough Miscellaneous Test Crossmatch 06/11/18 06/11/18 06/11/18 06:20 07:41 07:41 WBC RBC Hgb Hct MCV MCHC RDW Plt Count Lymph % (Auto) [place] % (Auto) Lymph # [place] # Seg Neutrophils % Seg Neuts % (Manual) Lymphocytes % (Manual) Monocytes % (Manual) Seg Neutrophils # Seg Neutrophils # Man Lymphocytes # (Manual) Monocytes # (Manual) PT INR APTT Heparin Anti-Xa Level POC ABG pH POC ABG pCO2 POC ABG pO2 Sodium Potassium Chloride Carbon Dioxide BUN Creatinine Glucose POC Glucose 136 H Lactic Acid Calcium Phosphorus Magnesium Iron TIBC AST ALT Alkaline Phosphatase Lactate Dehydrogenase Total Creatine Kinase C-Reactive Protein Total Protein Albumin Prealbumin CA 19-9 Antigen Folate PTH Intact Urine WBC (Auto) 10.0 H Urine Creatinine 41.2 H Urine Chloride 49.2 L Urine Total Protein 142 H Fluid Glucose Fluid Total Protein Vancomycin Trough Miscellaneous Test Crossmatch 06/11/18 06/12/18 06/12/18 18:35 00:34 04:12 WBC RBC 3.18 L Hgb 9.5 L Hct 28.7 L MCV MCHC RDW 18.5 H Plt Count Lymph % (Auto) 8.1 L [place] % (Auto) Lymph # 0.9 L [place] # Seg Neutrophils % 84.6 H Seg Neuts % (Manual) Lymphocytes % (Manual) Monocytes % (Manual) Seg Neutrophils # 9.1 H Seg Neutrophils # Man Lymphocytes # (Manual) Monocytes # (Manual) PT INR APTT Heparin Anti-Xa Level POC ABG pH POC ABG pCO2 POC ABG pO2 Sodium Potassium Chloride Carbon Dioxide BUN Creatinine Glucose POC Glucose 125 H 129 H Lactic Acid Calcium Phosphorus Magnesium Iron TIBC AST ALT Alkaline Phosphatase Lactate Dehydrogenase Total Creatine Kinase C-Reactive Protein Total Protein Albumin Prealbumin CA 19-9 Antigen Folate PTH Intact Urine WBC (Auto) Urine Creatinine Urine Chloride Urine Total Protein Fluid Glucose Fluid Total Protein Vancomycin Trough Miscellaneous Test Crossmatch 06/12/18 06/12/18 06/12/18 04:12 06:30 11:43 WBC RBC Hgb Hct MCV MCHC RDW Plt Count Lymph % (Auto) [place] % (Auto) Lymph # [place] # Seg Neutrophils % Seg Neuts % (Manual) Lymphocytes % (Manual) Monocytes % (Manual) Seg Neutrophils # Seg Neutrophils # Man Lymphocytes # (Manual) Monocytes # (Manual) PT INR APTT Heparin Anti-Xa Level POC ABG pH POC ABG pCO2 POC ABG pO2 Sodium Potassium Chloride 108.5 H Carbon Dioxide 21 L BUN 72 H Creatinine 3.0 H Glucose 122 H POC Glucose 129 H 126 H Lactic Acid Calcium 7.8 L Phosphorus Magnesium Iron TIBC AST 45 H ALT Alkaline Phosphatase 200 H Lactate Dehydrogenase Total Creatine Kinase 34 L C-Reactive Protein Total Protein Albumin 1.7 L Prealbumin CA 19-9 Antigen Folate PTH Intact Urine WBC (Auto) Urine Creatinine Urine Chloride Urine Total Protein Fluid Glucose Fluid Total Protein Vancomycin Trough Miscellaneous Test Crossmatch 06/12/18 06/12/18 06/13/18 16:00 23:56 03:44 WBC RBC Hgb Hct MCV MCHC RDW Plt Count Lymph % (Auto) [place] % (Auto) Lymph # [place] # Seg Neutrophils % Seg Neuts % (Manual) Lymphocytes % (Manual) Monocytes % (Manual) Seg Neutrophils # Seg Neutrophils # Man Lymphocytes # (Manual) Monocytes # (Manual) PT INR APTT Heparin Anti-Xa Level POC ABG pH POC ABG pCO2 POC ABG pO2 Sodium Potassium Chloride Carbon Dioxide BUN Creatinine Glucose POC Glucose 123 H 128 H 121 H Lactic Acid Calcium Phosphorus Magnesium Iron TIBC AST ALT Alkaline Phosphatase Lactate Dehydrogenase Total Creatine Kinase C-Reactive Protein Total Protein Albumin Prealbumin CA 19-9 Antigen Folate PTH Intact Urine WBC (Auto) Urine Creatinine Urine Chloride Urine Total Protein Fluid Glucose Fluid Total Protein Vancomycin Trough Miscellaneous Test Crossmatch 06/13/18 06/13/18 06/14/18 05:59 11:29 01:08 WBC RBC Hgb Hct MCV MCHC RDW Plt Count Lymph % (Auto) [place] % (Auto) Lymph # [place] # Seg Neutrophils % Seg Neuts % (Manual) Lymphocytes % (Manual) Monocytes % (Manual) Seg Neutrophils # Seg Neutrophils # Man Lymphocytes # (Manual) Monocytes # (Manual) PT INR APTT Heparin Anti-Xa Level POC ABG pH POC ABG pCO2 POC ABG pO2 Sodium 134 L Potassium Chloride Carbon Dioxide 20 L BUN 69 H Creatinine 2.9 H Glucose 113 H POC Glucose 124 H 128 H Lactic Acid Calcium 7.8 L Phosphorus Magnesium Iron TIBC AST ALT Alkaline Phosphatase Lactate Dehydrogenase Total Creatine Kinase C-Reactive Protein Total Protein Albumin Prealbumin CA 19-9 Antigen Folate PTH Intact Urine WBC (Auto) Urine Creatinine Urine Chloride Urine Total Protein Fluid Glucose Fluid Total Protein Vancomycin Trough Miscellaneous Test Crossmatch 06/14/18 06/14/18 06/14/18 06:42 06:42 09:50 WBC 11.3 H RBC 3.02 L Hgb 8.8 L Hct 27.3 L MCV MCHC RDW 18.6 H Plt Count Lymph % (Auto) [place] % (Auto) Lymph # [place] # Seg Neutrophils % Seg Neuts % (Manual) Lymphocytes % (Manual) Monocytes % (Manual) Seg Neutrophils # Seg Neutrophils # Man Lymphocytes # (Manual) Monocytes # (Manual) PT 16.3 H INR 1.24 H APTT Heparin Anti-Xa Level POC ABG pH POC ABG pCO2 POC ABG pO2 Sodium 132 L Potassium Chloride Carbon Dioxide 19 L BUN 71 H Creatinine 3.1 H Glucose POC Glucose Lactic Acid Calcium 7.8 L Phosphorus Magnesium Iron TIBC AST ALT Alkaline Phosphatase Lactate Dehydrogenase Total Creatine Kinase C-Reactive Protein Total Protein Albumin Prealbumin CA 19-9 Antigen Folate PTH Intact Urine WBC (Auto) Urine Creatinine Urine Chloride Urine Total Protein Fluid Glucose Fluid Total Protein Vancomycin Trough Miscellaneous Test Crossmatch 06/14/18 06/14/18 06/15/18 12:31 17:04 01:18 WBC RBC Hgb Hct MCV MCHC RDW Plt Count Lymph % (Auto) [place] % (Auto) Lymph # [place] # Seg Neutrophils % Seg Neuts % (Manual) Lymphocytes % (Manual) Monocytes % (Manual) Seg Neutrophils # Seg Neutrophils # Man Lymphocytes # (Manual) Monocytes # (Manual) PT INR APTT Heparin Anti-Xa Level POC ABG pH POC ABG pCO2 POC ABG pO2 Sodium Potassium Chloride Carbon Dioxide BUN Creatinine Glucose POC Glucose 125 H 109 H 124 H Lactic Acid Calcium Phosphorus Magnesium Iron TIBC AST ALT Alkaline Phosphatase Lactate Dehydrogenase Total Creatine Kinase C-Reactive Protein Total Protein Albumin Prealbumin CA 19-9 Antigen Folate PTH Intact Urine WBC (Auto) Urine Creatinine Urine Chloride Urine Total Protein Fluid Glucose Fluid Total Protein Vancomycin Trough Miscellaneous Test Crossmatch 06/15/18 06/15/18 06/15/18 05:27 06:34 11:42 WBC RBC Hgb Hct MCV MCHC RDW Plt Count Lymph % (Auto) [place] % (Auto) Lymph # [place] # Seg Neutrophils % Seg Neuts % (Manual) Lymphocytes % (Manual) Monocytes % (Manual) Seg Neutrophils # Seg Neutrophils # Man Lymphocytes # (Manual) Monocytes # (Manual) PT INR APTT Heparin Anti-Xa Level POC ABG pH POC ABG pCO2 POC ABG pO2 Sodium 134 L Potassium Chloride Carbon Dioxide 17 L BUN 77 H Creatinine 3.2 H Glucose 110 H POC Glucose 116 H 131 H Lactic Acid Calcium 8.1 L Phosphorus 6.20 H D Magnesium Iron TIBC AST ALT Alkaline Phosphatase Lactate Dehydrogenase Total Creatine Kinase C-Reactive Protein Total Protein Albumin Prealbumin CA 19-9 Antigen Folate PTH Intact Urine WBC (Auto) Urine Creatinine Urine Chloride Urine Total Protein Fluid Glucose Fluid Total Protein Vancomycin Trough Miscellaneous Test Crossmatch 06/16/18 06/16/18 06/16/18 00:57 05:10 06:07 WBC RBC Hgb Hct MCV MCHC RDW Plt Count Lymph % (Auto) [place] % (Auto) Lymph # [place] # Seg Neutrophils % Seg Neuts % (Manual) Lymphocytes % (Manual) Monocytes % (Manual) Seg Neutrophils # Seg Neutrophils # Man Lymphocytes # (Manual) Monocytes # (Manual) PT INR APTT Heparin Anti-Xa Level POC ABG pH POC ABG pCO2 POC ABG pO2 Sodium 132 L Potassium Chloride Carbon Dioxide 19 L BUN 83 H Creatinine 3.2 H Glucose 113 H POC Glucose 137 H 109 H Lactic Acid Calcium 7.8 L Phosphorus 6.10 H Magnesium Iron TIBC AST ALT Alkaline Phosphatase Lactate Dehydrogenase Total Creatine Kinase C-Reactive Protein Total Protein Albumin Prealbumin CA 19-9 Antigen Folate PTH Intact Urine WBC (Auto) Urine Creatinine Urine Chloride Urine Total Protein Fluid Glucose Fluid Total Protein Vancomycin Trough Miscellaneous Test Crossmatch 06/16/18 06/16/18 06/17/18 11:51 15:46 00:02 WBC RBC Hgb Hct MCV MCHC RDW Plt Count Lymph % (Auto) [place] % (Auto) Lymph # [place] # Seg Neutrophils % Seg Neuts % (Manual) Lymphocytes % (Manual) Monocytes % (Manual) Seg Neutrophils # Seg Neutrophils # Man Lymphocytes # (Manual) Monocytes # (Manual) PT INR APTT Heparin Anti-Xa Level POC ABG pH POC ABG pCO2 POC ABG pO2 Sodium Potassium Chloride Carbon Dioxide BUN Creatinine Glucose POC Glucose 126 H 127 H 107 H Lactic Acid Calcium Phosphorus Magnesium Iron TIBC AST ALT Alkaline Phosphatase Lactate Dehydrogenase Total Creatine Kinase C-Reactive Protein Total Protein Albumin Prealbumin CA 19-9 Antigen Folate PTH Intact Urine WBC (Auto) Urine Creatinine Urine Chloride Urine Total Protein Fluid Glucose Fluid Total Protein Vancomycin Trough Miscellaneous Test Crossmatch 06/17/18 06/17/18 06/17/18 05:52 11:46 16:58 WBC RBC Hgb Hct MCV MCHC RDW Plt Count Lymph % (Auto) [place] % (Auto) Lymph # [place] # Seg Neutrophils % Seg Neuts % (Manual) Lymphocytes % (Manual) Monocytes % (Manual) Seg Neutrophils # Seg Neutrophils # Man Lymphocytes # (Manual) Monocytes # (Manual) PT INR APTT Heparin Anti-Xa Level POC ABG pH POC ABG pCO2 POC ABG pO2 Sodium 133 L Potassium Chloride Carbon Dioxide 17 L BUN 87 H Creatinine 3.2 H Glucose POC Glucose 129 H 140 H Lactic Acid Calcium 8.1 L Phosphorus 6.50 H Magnesium Iron TIBC AST ALT Alkaline Phosphatase Lactate Dehydrogenase Total Creatine Kinase C-Reactive Protein Total Protein Albumin Prealbumin 0.130 L CA 19-9 Antigen Folate PTH Intact Urine WBC (Auto) Urine Creatinine Urine Chloride Urine Total Protein Fluid Glucose Fluid Total Protein Vancomycin Trough Miscellaneous Test Crossmatch 06/18/18 06/18/18 06/18/18 04:04 04:04 14:15 WBC RBC 3.00 L Hgb 8.9 L Hct 26.5 L MCV MCHC RDW 17.8 H Plt Count 494 H Lymph % (Auto) 7.9 L [place] % (Auto) 9.3 H Lymph # 0.8 L [place] # 1.0 H Seg Neutrophils % 81.2 H Seg Neuts % (Manual) Lymphocytes % (Manual) Monocytes % (Manual) Seg Neutrophils # 8.6 H Seg Neutrophils # Man Lymphocytes # (Manual) Monocytes # (Manual) PT INR APTT Heparin Anti-Xa Level POC ABG pH POC ABG pCO2 POC ABG pO2 Sodium 128 L Potassium Chloride Carbon Dioxide 18 L BUN 88 H Creatinine 3.1 H Glucose 129 H POC Glucose 143 H Lactic Acid Calcium 7.8 L Phosphorus 6.20 H Magnesium Iron TIBC AST ALT Alkaline Phosphatase Lactate Dehydrogenase Total Creatine Kinase C-Reactive Protein Total Protein Albumin Prealbumin CA 19-9 Antigen Folate PTH Intact Urine WBC (Auto) Urine Creatinine Urine Chloride Urine Total Protein Fluid Glucose Fluid Total Protein Vancomycin Trough Miscellaneous Test Crossmatch 06/18/18 06/19/18 06/19/18 17:54 01:45 06:20 WBC RBC Hgb Hct MCV MCHC RDW Plt Count Lymph % (Auto) [place] % (Auto) Lymph # [place] # Seg Neutrophils % Seg Neuts % (Manual) Lymphocytes % (Manual) Monocytes % (Manual) Seg Neutrophils # Seg Neutrophils # Man Lymphocytes # (Manual) Monocytes # (Manual) PT INR APTT Heparin Anti-Xa Level POC ABG pH POC ABG pCO2 POC ABG pO2 Sodium Potassium Chloride 93.9 L Carbon Dioxide BUN 78 H Creatinine 2.8 H Glucose POC Glucose 138 H 141 H Lactic Acid Calcium 7.1 L Phosphorus 6.40 H Magnesium Iron TIBC AST ALT Alkaline Phosphatase Lactate Dehydrogenase Total Creatine Kinase C-Reactive Protein Total Protein Albumin Prealbumin CA 19-9 Antigen Folate PTH Intact Urine WBC (Auto) Urine Creatinine Urine Chloride Urine Total Protein Fluid Glucose Fluid Total Protein Vancomycin Trough Miscellaneous Test Crossmatch 06/19/18 06/19/18 06/19/18 06:49 07:59 16:32 WBC RBC Hgb Hct MCV MCHC RDW Plt Count Lymph % (Auto) [place] % (Auto) Lymph # [place] # Seg Neutrophils % Seg Neuts % (Manual) Lymphocytes % (Manual) Monocytes % (Manual) Seg Neutrophils # Seg Neutrophils # Man Lymphocytes # (Manual) Monocytes # (Manual) PT INR APTT Heparin Anti-Xa Level POC ABG pH POC ABG pCO2 POC ABG pO2 Sodium Potassium Chloride Carbon Dioxide BUN 80 H Creatinine 2.9 H Glucose 123 H POC Glucose 130 H 134 H Lactic Acid Calcium 7.7 L Phosphorus Magnesium Iron TIBC AST ALT Alkaline Phosphatase Lactate Dehydrogenase Total Creatine Kinase C-Reactive Protein Total Protein Albumin Prealbumin CA 19-9 Antigen Folate PTH Intact Urine WBC (Auto) Urine Creatinine Urine Chloride Urine Total Protein Fluid Glucose Fluid Total Protein Vancomycin Trough Miscellaneous Test Crossmatch 06/20/18 06/20/18 06/20/18 00:11 05:55 05:55 WBC RBC 2.73 L Hgb 8.0 L Hct 24.2 L MCV MCHC RDW 17.4 H Plt Count 512 H Lymph % (Auto) 12.3 L [place] % (Auto) 11.3 H Lymph # 1.1 L [place] # 1.0 H Seg Neutrophils % 74.8 H Seg Neuts % (Manual) Lymphocytes % (Manual) Monocytes % (Manual) Seg Neutrophils # Seg Neutrophils # Man Lymphocytes # (Manual) Monocytes # (Manual) PT INR APTT Heparin Anti-Xa Level POC ABG pH POC ABG pCO2 POC ABG pO2 Sodium Potassium Chloride Carbon Dioxide 32 H BUN 70 H Creatinine 2.5 H Glucose 105 H POC Glucose 131 H Lactic Acid Calcium 8.0 L Phosphorus Magnesium Iron TIBC AST ALT Alkaline Phosphatase Lactate Dehydrogenase Total Creatine Kinase C-Reactive Protein Total Protein Albumin Prealbumin CA 19-9 Antigen Folate PTH Intact Urine WBC (Auto) Urine Creatinine Urine Chloride Urine Total Protein Fluid Glucose Fluid Total Protein Vancomycin Trough Miscellaneous Test Crossmatch 06/20/18 06/20/18 06/20/18 05:55 12:10 16:01 WBC RBC Hgb Hct MCV MCHC RDW Plt Count Lymph % (Auto) [place] % (Auto) Lymph # [place] # Seg Neutrophils % Seg Neuts % (Manual) Lymphocytes % (Manual) Monocytes % (Manual) Seg Neutrophils # Seg Neutrophils # Man Lymphocytes # (Manual) Monocytes # (Manual) PT INR APTT Heparin Anti-Xa Level POC ABG pH POC ABG pCO2 POC ABG pO2 Sodium Potassium Chloride Carbon Dioxide BUN Creatinine Glucose POC Glucose 112 H 127 H 145 H Lactic Acid Calcium Phosphorus Magnesium Iron TIBC AST ALT Alkaline Phosphatase Lactate Dehydrogenase Total Creatine Kinase C-Reactive Protein Total Protein Albumin Prealbumin CA 19-9 Antigen Folate PTH Intact Urine WBC (Auto) Urine Creatinine Urine Chloride Urine Total Protein Fluid Glucose Fluid Total Protein Vancomycin Trough Miscellaneous Test Crossmatch 06/20/18 06/21/18 06/21/18 23:54 05:50 05:50 WBC RBC 2.57 L Hgb 7.7 L Hct 26.6 L MCV 104 H MCHC 29 L RDW 19.1 H Plt Count 521 H Lymph % (Auto) 10.0 L [place] % (Auto) 7.4 H Lymph # 1.0 L [place] # Seg Neutrophils % 81.3 H Seg Neuts % (Manual) Lymphocytes % (Manual) Monocytes % (Manual) Seg Neutrophils # 7.9 H Seg Neutrophils # Man Lymphocytes # (Manual) Monocytes # (Manual) PT INR APTT Heparin Anti-Xa Level POC ABG pH POC ABG pCO2 POC ABG pO2 Sodium Potassium 5.8 H D Chloride 90.3 L Carbon Dioxide 37 H BUN 57 H Creatinine 1.9 H Glucose POC Glucose 154 H Lactic Acid Calcium 7.3 L Phosphorus Magnesium Iron TIBC AST 50 H ALT Alkaline Phosphatase 190 H Lactate Dehydrogenase Total Creatine Kinase C-Reactive Protein Total Protein Albumin 1.8 L Prealbumin CA 19-9 Antigen Folate PTH Intact Urine WBC (Auto) Urine Creatinine Urine Chloride Urine Total Protein Fluid Glucose Fluid Total Protein Vancomycin Trough Miscellaneous Test Crossmatch 06/21/18 06/21/18 06/21/18 06:57 13:37 17:00 WBC RBC Hgb Hct MCV MCHC RDW Plt Count Lymph % (Auto) [place] % (Auto) Lymph # [place] # Seg Neutrophils % Seg Neuts % (Manual) Lymphocytes % (Manual) Monocytes % (Manual) Seg Neutrophils # Seg Neutrophils # Man Lymphocytes # (Manual) Monocytes # (Manual) PT INR APTT Heparin Anti-Xa Level POC ABG pH POC ABG pCO2 POC ABG pO2 Sodium Potassium Chloride Carbon Dioxide BUN Creatinine Glucose 111 H POC Glucose 141 H 148 H Lactic Acid Calcium Phosphorus Magnesium Iron TIBC AST ALT Alkaline Phosphatase Lactate Dehydrogenase Total Creatine Kinase C-Reactive Protein Total Protein Albumin Prealbumin CA 19-9 Antigen Folate PTH Intact Urine WBC (Auto) Urine Creatinine Urine Chloride Urine Total Protein Fluid Glucose Fluid Total Protein Vancomycin Trough Miscellaneous Test Crossmatch 06/21/18 06/21/18 06/22/18 17:27 22:01 06:02 WBC RBC Hgb Hct MCV MCHC RDW Plt Count Lymph % (Auto) [place] % (Auto) Lymph # [place] # Seg Neutrophils % Seg Neuts % (Manual) Lymphocytes % (Manual) Monocytes % (Manual) Seg Neutrophils # Seg Neutrophils # Man Lymphocytes # (Manual) Monocytes # (Manual) PT INR APTT Heparin Anti-Xa Level POC ABG pH POC ABG pCO2 POC ABG pO2 Sodium Potassium 3.2 L Chloride Carbon Dioxide 39 H BUN 53 H Creatinine 1.9 H Glucose 1348 H* POC Glucose 130 H 122 H Lactic Acid Calcium 7.5 L Phosphorus Magnesium Iron TIBC AST ALT Alkaline Phosphatase Lactate Dehydrogenase Total Creatine Kinase C-Reactive Protein Total Protein Albumin Prealbumin CA 19-9 Antigen Folate PTH Intact Urine WBC (Auto) Urine Creatinine Urine Chloride Urine Total Protein Fluid Glucose Fluid Total Protein Vancomycin Trough Miscellaneous Test Crossmatch 06/22/18 06/22/18 06/22/18 06:16 07:26 07:48 WBC RBC Hgb Hct MCV MCHC RDW Plt Count Lymph % (Auto) [place] % (Auto) Lymph # [place] # Seg Neutrophils % Seg Neuts % (Manual) Lymphocytes % (Manual) Monocytes % (Manual) Seg Neutrophils # Seg Neutrophils # Man Lymphocytes # (Manual) Monocytes # (Manual) PT INR APTT Heparin Anti-Xa Level POC ABG pH POC ABG pCO2 POC ABG pO2 Sodium Potassium Chloride Carbon Dioxide 37 H BUN 57 H Creatinine 1.9 H Glucose 147 H POC Glucose 148 H 153 H Lactic Acid Calcium 8.3 L Phosphorus Magnesium Iron TIBC AST ALT Alkaline Phosphatase Lactate Dehydrogenase Total Creatine Kinase C-Reactive Protein Total Protein Albumin Prealbumin CA 19-9 Antigen Folate PTH Intact Urine WBC (Auto) Urine Creatinine Urine Chloride Urine Total Protein Fluid Glucose Fluid Total Protein Vancomycin Trough Miscellaneous Test Crossmatch 06/22/18 06/22/18 06/22/18 11:26 16:26 23:57 WBC RBC Hgb Hct MCV MCHC RDW Plt Count Lymph % (Auto) [place] % (Auto) Lymph # [place] # Seg Neutrophils % Seg Neuts % (Manual) Lymphocytes % (Manual) Monocytes % (Manual) Seg Neutrophils # Seg Neutrophils # Man Lymphocytes # (Manual) Monocytes # (Manual) PT INR APTT Heparin Anti-Xa Level POC ABG pH POC ABG pCO2 POC ABG pO2 Sodium Potassium Chloride Carbon Dioxide BUN Creatinine Glucose POC Glucose 121 H 122 H 180 H Lactic Acid Calcium Phosphorus Magnesium Iron TIBC AST ALT Alkaline Phosphatase Lactate Dehydrogenase Total Creatine Kinase C-Reactive Protein Total Protein Albumin Prealbumin CA 19-9 Antigen Folate PTH Intact Urine WBC (Auto) Urine Creatinine Urine Chloride Urine Total Protein Fluid Glucose Fluid Total Protein Vancomycin Trough Miscellaneous Test Crossmatch 06/22/18 06/23/18 06/23/18 23:57 00:30 01:40 WBC RBC Hgb Hct MCV MCHC RDW Plt Count Lymph % (Auto) [place] % (Auto) Lymph # [place] # Seg Neutrophils % Seg Neuts % (Manual) Lymphocytes % (Manual) Monocytes % (Manual) Seg Neutrophils # Seg Neutrophils # Man Lymphocytes # (Manual) Monocytes # (Manual) PT INR APTT Heparin Anti-Xa Level POC ABG pH 7.195 L 7.235 L POC ABG pCO2 105.2 H 95.7 H POC ABG pO2 Sodium Potassium Chloride Carbon Dioxide BUN Creatinine Glucose POC Glucose Lactic Acid Calcium Phosphorus Magnesium Iron TIBC AST ALT Alkaline Phosphatase Lactate Dehydrogenase Total Creatine Kinase C-Reactive Protein Total Protein Albumin Prealbumin CA 19-9 Antigen Folate PTH Intact Urine WBC (Auto) Urine Creatinine 99.7 H Urine Chloride 10.0 L Urine Total Protein 272 H Fluid Glucose Fluid Total Protein Vancomycin Trough Miscellaneous Test Crossmatch 06/23/18 06/23/18 06/23/18 05:58 07:20 08:31 WBC 16.0 H RBC 2.35 L Hgb 6.7 L Hct 22.3 L MCV 95 H MCHC 30 L RDW 18.5 H Plt Count 512 H Lymph % (Auto) [place] % (Auto) Lymph # [place] # Seg Neutrophils % Seg Neuts % (Manual) Lymphocytes % (Manual) Monocytes % (Manual) Seg Neutrophils # Seg Neutrophils # Man Lymphocytes # (Manual) Monocytes # (Manual) PT INR APTT Heparin Anti-Xa Level POC ABG pH POC ABG pCO2 POC ABG pO2 Sodium Potassium Chloride Carbon Dioxide BUN Creatinine Glucose POC Glucose 116 H 123 H Lactic Acid Calcium Phosphorus Magnesium Iron TIBC AST ALT Alkaline Phosphatase Lactate Dehydrogenase Total Creatine Kinase C-Reactive Protein Total Protein Albumin Prealbumin CA 19-9 Antigen Folate PTH Intact Urine WBC (Auto) Urine Creatinine Urine Chloride Urine Total Protein Fluid Glucose Fluid Total Protein Vancomycin Trough Miscellaneous Test Crossmatch 1006/23/18 06/23/18 08:31 08:34 08:34 WBC RBC Hgb Hct MCV MCHC RDW Plt Count 485 H Lymph % (Auto) [place] % (Auto) Lymph # [place] # Seg Neutrophils % Seg Neuts % (Manual) Lymphocytes % (Manual) Monocytes % (Manual) Seg Neutrophils # Seg Neutrophils # Man Lymphocytes # (Manual) Monocytes # (Manual) PT 15.2 H INR 1.15 H APTT 41.9 H Heparin Anti-Xa Level POC ABG pH POC ABG pCO2 POC ABG pO2 Sodium 148 H Potassium Chloride Carbon Dioxide BUN 59 H Creatinine 2.2 H Glucose 106 H POC Glucose Lactic Acid Calcium 8.2 L Phosphorus 6.60 H Magnesium Iron TIBC AST 46 H ALT Alkaline Phosphatase 188 H Lactate Dehydrogenase Total Creatine Kinase C-Reactive Protein Total Protein Albumin 1.6 L Prealbumin CA 19-9 Antigen Folate PTH Intact Urine WBC (Auto) Urine Creatinine Urine Chloride Urine Total Protein Fluid Glucose Fluid Total Protein Vancomycin Trough Miscellaneous Test Crossmatch 06/23/18 06/23/18 06/23/18 09:29 09:40 09:43 WBC RBC Hgb Hct MCV MCHC RDW Plt Count Lymph % (Auto) [place] % (Auto) Lymph # [place] # Seg Neutrophils % Seg Neuts % (Manual) Lymphocytes % (Manual) Monocytes % (Manual) Seg Neutrophils # Seg Neutrophils # Man Lymphocytes # (Manual) Monocytes # (Manual) PT INR APTT Heparin Anti-Xa Level POC ABG pH 7.521 H POC ABG pCO2 53.6 H 48.4 H POC ABG pO2 37 L 181 H Sodium Potassium Chloride Carbon Dioxide BUN Creatinine Glucose POC Glucose Lactic Acid Calcium Phosphorus Magnesium Iron TIBC AST ALT Alkaline Phosphatase Lactate Dehydrogenase Total Creatine Kinase C-Reactive Protein Total Protein Albumin Prealbumin CA 19-9 Antigen Folate PTH Intact Urine WBC (Auto) Urine Creatinine Urine Chloride Urine Total Protein Fluid Glucose Fluid Total Protein Vancomycin Trough Miscellaneous Test Crossmatch See Detail 06/23/18 06/23/18 06/23/18 17:03 17:03 18:33 WBC 22.2 H RBC 2.85 L Hgb 8.4 L Hct 25.6 L MCV MCHC RDW 17.6 H Plt Count 515 H Lymph % (Auto) [place] % (Auto) Lymph # [place] # Seg Neutrophils % Seg Neuts % (Manual) Lymphocytes % (Manual) Monocytes % (Manual) Seg Neutrophils # Seg Neutrophils # Man Lymphocytes # (Manual) Monocytes # (Manual) PT INR APTT Heparin Anti-Xa Level 0.13 L POC ABG pH POC ABG pCO2 POC ABG pO2 Sodium Potassium Chloride Carbon Dioxide BUN Creatinine Glucose POC Glucose < 40 L Lactic Acid Calcium Phosphorus Magnesium Iron TIBC AST ALT Alkaline Phosphatase Lactate Dehydrogenase Total Creatine Kinase C-Reactive Protein Total Protein Albumin Prealbumin CA 19-9 Antigen Folate PTH Intact Urine WBC (Auto) Urine Creatinine Urine Chloride Urine Total Protein Fluid Glucose Fluid Total Protein Vancomycin Trough Miscellaneous Test Crossmatch 06/23/18 06/23/18 06/24/18 23:53 Unknown 00:30 WBC RBC Hgb Hct MCV MCHC RDW Plt Count Lymph % (Auto) [place] % (Auto) Lymph # [place] # Seg Neutrophils % Seg Neuts % (Manual) Lymphocytes % (Manual) Monocytes % (Manual) Seg Neutrophils # Seg Neutrophils # Man Lymphocytes # (Manual) Monocytes # (Manual) PT INR APTT Heparin Anti-Xa Level POC ABG pH POC ABG pCO2 POC ABG pO2 Sodium 148 H Potassium Chloride Carbon Dioxide 36 H BUN 57 H Creatinine 1.9 H Glucose POC Glucose 140 H Lactic Acid Calcium 8.3 L Phosphorus Magnesium Iron TIBC AST ALT Alkaline Phosphatase Lactate Dehydrogenase Total Creatine Kinase C-Reactive Protein Total Protein Albumin Prealbumin CA 19-9 Antigen Folate PTH Intact Urine WBC (Auto) 8.0 H Urine Creatinine Urine Chloride Urine Total Protein Fluid Glucose Fluid Total Protein Vancomycin Trough Miscellaneous Test Crossmatch 06/24/18 06/24/18 06/24/18 00:40 04:30 04:30 WBC 26.9 H RBC 2.79 L Hgb 8.1 L Hct 25.0 L MCV MCHC RDW 17.5 H Plt Count 487 H Lymph % (Auto) [place] % (Auto) Lymph # [place] # Seg Neutrophils % Seg Neuts % (Manual) Lymphocytes % (Manual) 6.0 L Monocytes % (Manual) 8.0 H Seg Neutrophils # Seg Neutrophils # Man 16.9 H Lymphocytes # (Manual) Monocytes # (Manual) 2.2 H PT INR APTT Heparin Anti-Xa Level 0.13 L POC ABG pH POC ABG pCO2 POC ABG pO2 Sodium 151 H Potassium Chloride Carbon Dioxide 36 H D BUN 74 H Creatinine 2.9 H Glucose 126 H POC Glucose Lactic Acid Calcium 8.2 L Phosphorus Magnesium Iron TIBC AST ALT Alkaline Phosphatase Lactate Dehydrogenase Total Creatine Kinase C-Reactive Protein Total Protein Albumin Prealbumin CA 19-9 Antigen Folate PTH Intact Urine WBC (Auto) Urine Creatinine Urine Chloride Urine Total Protein Fluid Glucose Fluid Total Protein Vancomycin Trough Miscellaneous Test Crossmatch 06/24/18 06/24/18 06/24/18 04:33 06:41 08:00 WBC RBC Hgb Hct MCV MCHC RDW Plt Count Lymph % (Auto) [place] % (Auto) Lymph # [place] # Seg Neutrophils % Seg Neuts % (Manual) Lymphocytes % (Manual) Monocytes % (Manual) Seg Neutrophils # Seg Neutrophils # Man Lymphocytes # (Manual) Monocytes # (Manual) PT INR APTT Heparin Anti-Xa Level 0.21 L POC ABG pH 7.517 H POC ABG pCO2 50.9 H POC ABG pO2 170 H Sodium Potassium Chloride Carbon Dioxide BUN Creatinine Glucose POC Glucose 140 H Lactic Acid Calcium Phosphorus Magnesium Iron TIBC AST ALT Alkaline Phosphatase Lactate Dehydrogenase Total Creatine Kinase C-Reactive Protein Total Protein Albumin Prealbumin CA 19-9 Antigen Folate PTH Intact Urine WBC (Auto) Urine Creatinine Urine Chloride Urine Total Protein Fluid Glucose Fluid Total Protein Vancomycin Trough Miscellaneous Test Crossmatch 06/24/18 06/24/18 06/24/18 12:27 14:20 18:46 WBC RBC Hgb Hct MCV MCHC RDW Plt Count Lymph % (Auto) [place] % (Auto) Lymph # [place] # Seg Neutrophils % Seg Neuts % (Manual) Lymphocytes % (Manual) Monocytes % (Manual) Seg Neutrophils # Seg Neutrophils # Man Lymphocytes # (Manual) Monocytes # (Manual) PT INR APTT Heparin Anti-Xa Level 0.28 L POC ABG pH POC ABG pCO2 POC ABG pO2 Sodium Potassium Chloride Carbon Dioxide BUN Creatinine Glucose POC Glucose 216 H 182 H Lactic Acid Calcium Phosphorus Magnesium Iron TIBC AST ALT Alkaline Phosphatase Lactate Dehydrogenase Total Creatine Kinase C-Reactive Protein Total Protein Albumin Prealbumin CA 19-9 Antigen Folate PTH Intact Urine WBC (Auto) Urine Creatinine Urine Chloride Urine Total Protein Fluid Glucose Fluid Total Protein Vancomycin Trough Miscellaneous Test Crossmatch 06/24/18 06/25/18 06/25/18 23:43 04:29 04:37 WBC RBC Hgb 8.1 L Hct 25.6 L MCV MCHC RDW Plt Count Lymph % (Auto) [place] % (Auto) Lymph # [place] # Seg Neutrophils % Seg Neuts % (Manual) Lymphocytes % (Manual) Monocytes % (Manual) Seg Neutrophils # Seg Neutrophils # Man Lymphocytes # (Manual) Monocytes # (Manual) PT INR APTT Heparin Anti-Xa Level POC ABG pH 7.534 H POC ABG pCO2 POC ABG pO2 161 H Sodium Potassium Chloride Carbon Dioxide BUN Creatinine Glucose POC Glucose 217 H Lactic Acid Calcium Phosphorus Magnesium Iron TIBC AST ALT Alkaline Phosphatase Lactate Dehydrogenase Total Creatine Kinase C-Reactive Protein Total Protein Albumin Prealbumin CA 19-9 Antigen Folate PTH Intact Urine WBC (Auto) Urine Creatinine Urine Chloride Urine Total Protein Fluid Glucose Fluid Total Protein Vancomycin Trough Miscellaneous Test Crossmatch 06/25/18 06/25/18 06/25/18 04:37 05:48 12:11 WBC RBC Hgb Hct MCV MCHC RDW Plt Count Lymph % (Auto) [place] % (Auto) Lymph # [place] # Seg Neutrophils % Seg Neuts % (Manual) Lymphocytes % (Manual) Monocytes % (Manual) Seg Neutrophils # Seg Neutrophils # Man Lymphocytes # (Manual) Monocytes # (Manual) PT INR APTT Heparin Anti-Xa Level POC ABG pH POC ABG pCO2 POC ABG pO2 Sodium Potassium 2.6 L* D Chloride Carbon Dioxide 32 H BUN 75 H Creatinine 3.1 H Glucose 244 H POC Glucose 225 H 252 H Lactic Acid Calcium Phosphorus Magnesium Iron TIBC AST ALT Alkaline Phosphatase Lactate Dehydrogenase Total Creatine Kinase C-Reactive Protein Total Protein Albumin Prealbumin CA 19-9 Antigen Folate PTH Intact Urine WBC (Auto) Urine Creatinine Urine Chloride Urine Total Protein Fluid Glucose Fluid Total Protein Vancomycin Trough Miscellaneous Test Crossmatch 06/25/18 06/25/18 06/25/18 15:58 18:12 20:30 WBC RBC Hgb 8.5 L Hct 27.6 L MCV MCHC RDW Plt Count Lymph % (Auto) [place] % (Auto) Lymph # [place] # Seg Neutrophils % Seg Neuts % (Manual) Lymphocytes % (Manual) Monocytes % (Manual) Seg Neutrophils # Seg Neutrophils # Man Lymphocytes # (Manual) Monocytes # (Manual) PT INR APTT Heparin Anti-Xa Level POC ABG pH POC ABG pCO2 POC ABG pO2 Sodium 148 H Potassium 2.4 L* Chloride Carbon Dioxide 31 H BUN 79 H Creatinine 3.0 H Glucose 152 H POC Glucose 199 H Lactic Acid Calcium 8.3 L Phosphorus Magnesium Iron TIBC AST ALT Alkaline Phosphatase Lactate Dehydrogenase Total Creatine Kinase C-Reactive Protein Total Protein Albumin Prealbumin CA 19-9 Antigen Folate PTH Intact Urine WBC (Auto) Urine Creatinine Urine Chloride Urine Total Protein Fluid Glucose Fluid Total Protein Vancomycin Trough Miscellaneous Test Crossmatch 06/26/18 06/26/18 06/26/18 04:00 04:00 04:00 WBC 26.2 H RBC 3.16 L Hgb 9.1 L Hct 28.8 L MCV MCHC RDW 18.2 H Plt Count Lymph % (Auto) [place] % (Auto) Lymph # [place] # Seg Neutrophils % Seg Neuts % (Manual) Lymphocytes % (Manual) 2.0 L Monocytes % (Manual) Seg Neutrophils # Seg Neutrophils # Man 11.5 H Lymphocytes # (Manual) 0.5 L Monocytes # (Manual) PT INR APTT Heparin Anti-Xa Level POC ABG pH POC ABG pCO2 POC ABG pO2 Sodium 146 H Potassium 3.2 L D 3.3 L Chloride 109.0 H 108.2 H Carbon Dioxide BUN 74 H 75 H Creatinine 2.9 H 2.9 H Glucose 62 L 60 L POC Glucose Lactic Acid Calcium 7.7 L 7.9 L Phosphorus Magnesium 1.60 L Iron TIBC AST ALT Alkaline Phosphatase 173 H Lactate Dehydrogenase Total Creatine Kinase C-Reactive Protein Total Protein 6.1 L Albumin 1.4 L Prealbumin CA 19-9 Antigen Folate PTH Intact Urine WBC (Auto) Urine Creatinine Urine Chloride Urine Total Protein Fluid Glucose Fluid Total Protein Vancomycin Trough Miscellaneous Test Crossmatch 06/26/18 06/26/18 06/26/18 05:57 05:59 06:22 WBC RBC Hgb Hct MCV MCHC RDW Plt Count Lymph % (Auto) [place] % (Auto) Lymph # [place] # Seg Neutrophils % Seg Neuts % (Manual) Lymphocytes % (Manual) Monocytes % (Manual) Seg Neutrophils # Seg Neutrophils # Man Lymphocytes # (Manual) Monocytes # (Manual) PT INR APTT Heparin Anti-Xa Level POC ABG pH 7.269 L POC ABG pCO2 68.0 H POC ABG pO2 73 L Sodium Potassium Chloride Carbon Dioxide BUN Creatinine Glucose POC Glucose 59 L 130 H Lactic Acid Calcium Phosphorus Magnesium Iron TIBC AST ALT Alkaline Phosphatase Lactate Dehydrogenase Total Creatine Kinase C-Reactive Protein Total Protein Albumin Prealbumin CA 19-9 Antigen Folate PTH Intact Urine WBC (Auto) Urine Creatinine Urine Chloride Urine Total Protein Fluid Glucose Fluid Total Protein Vancomycin Trough Miscellaneous Test Crossmatch
[2018-06-26] MEDS ORDERED: TPN ADULT 2,016 ML IV SCH (20:00)
--- NOTE | 2018-06-26 20:53 | Hem/Onc Progress Note ---
Assessment and Plan s/p code 06/23 -pt on vent #bowel obstruction - s/p diverting colostomy 05/26 sx notes -mentions matted mass #radiology Pelvic mass Large pelvic mass between bladder and rectum with large lymph nodes, s/p cystoscopy prostate area bx - sq cell features- anal vs lung path from ascites and pleural fluid reviewed # CT had shown bowel obstruction - s/p diverting colostomy # anemia - PRBC as needed low folate - on replacement # h/o leukocytosis on 05/22 - we will follow - likely reactive # h/o Acute kidney injury due to pelvic mass - Nephrology following. Ultrasound Kidneys showed bilat hydronephrosis CT Abd shows Pelvic mass with multiple large lymph nodes Had bilateral nephrostomy tubes placed 05/14/[address] Freeman. 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 Pt transferred to ICU has he was SOB - intubated - 06/23 06/26 - pt on pressors and tachycardic - not responding as per RN - family conference was done - in view of poor prognosis - Patient Problems (1) Pelvic mass in male Current Visit: Yes Status: Acute Subjective Date of service: 06/26/18 Principal diagnosis: s/p code - recent diagnosis of sq cell ca Interval history: pt had diverting colostomy 05/26 sq cell ca - prostate area had code - transferred to ICU 06/26 - pt on pressors and tachycardic not responding Objective - Constitutional Vitals: Last Vital Signs Temp 98.4 F 06/26/18 17:19 Pulse 124 H 06/26/18 20:15 Resp 24 06/26/18 20:15 BP 116/70 06/26/18 20:15 Pulse Ox 94 06/26/18 20:15 General appearance: other (intubated) Performance status: 4-completely disabled - EENT Lymph node exam: negative cervical, negative supraclavicular - Respiratory Respiratory: bilateral: CTA (on vent) - Cardiovascular Heart Sounds: Present: S1 & S2 Extremities: No edema - Gastrointestinal General gastrointestinal: Present: soft, other (colostomy) Rectal Exam: deferred - Genitourinary Male genitourinary: Present: deferred - Neurologic Neurologic: other (not responding) - Labs Lab Results: Laboratory Results - last 24 hr 06/25/18 06/26/18 06/26/18 20:30 00:35 04:00 WBC RBC Hgb Hct MCV MCH MCHC RDW Plt Count Add Manual Diff Total Counted Seg Neutrophils % Seg Neuts % (Manual) Band Neutrophils % Lymphocytes % (Manual) Reactive Lymphs % (Man) Monocytes % (Manual) Eosinophils % (Manual) Basophils % (Manual) Metamyelocytes % Myelocytes % Promyelocytes % Blast Cells % Nucleated RBC % Seg Neutrophils # Man Band Neutrophils # Lymphocytes # (Manual) Abs React Lymphs (Man) Monocytes # (Manual) Eosinophils # (Manual) Basophils # (Manual) Metamyelocytes # Myelocytes # Promyelocytes # Blast Cells # WBC Morphology Hypersegmented Neuts Hyposegmented Neuts Hypogranular Neuts Smudge Cells Toxic Granulation Toxic Vacuolation Dohle Bodies Pelger-Huet Anomaly Mahesh Rods Platelet Estimate Clumped Platelets Plt Clumps, EDTA Large Platelets Giant Platelets Platelet Satelliting Plt Morphology Comment RBC Morphology Dimorphic RBCs Polychromasia Hypochromasia Poikilocytosis Anisocytosis Microcytosis Macrocytosis Spherocytes Pappenheimer Bodies Sickle Cells Target Cells Tear Drop Cells Ovalocytes Helmet Cells Hernandez-Glazier Bodies [place] Rings Koppel Cells Bite Cells Crenated Cell Elliptocytes Acanthocytes (Spur) Rouleaux Hemoglobin C Crystals Schistocytes Malaria parasites Mk Bodies Hem Pathologist Commnt POC ABG pH POC ABG pCO2 POC ABG pO2 POC ABG HCO3 POC ABG Total CO2 POC ABG O2 Sat POC ABG Base Excess FiO2 Sodium 148 H 145 Potassium 2.4 L* 3.2 L D Chloride 105.0 109.0 H Carbon Dioxide 31 H 29 Anion Gap 14 10 BUN 79 H 74 H Creatinine 3.0 H 2.9 H Estimated GFR 27 28 BUN/Creatinine Ratio 26 26 Glucose 152 H 62 L POC Glucose 74 Calcium 8.3 L 7.7 L Phosphorus 3.10 Magnesium 1.60 L Total Bilirubin AST ALT Alkaline Phosphatase Total Protein Albumin Albumin/Globulin Ratio 06/26/18 06/26/18 06/26/18 04:00 04:00 05:57 WBC 26.2 H RBC 3.16 L Hgb 9.1 L Hct 28.8 L MCV 91 MCH 29 MCHC 32 RDW 18.2 H Plt Count 418 Add Manual Diff Complete Total Counted 200 Seg Neutrophils % Vehicle Cost Engineer Seg Neuts % (Manual) 44.0 Band Neutrophils % 52.0 Lymphocytes % (Manual) 2.0 L Reactive Lymphs % (Man) 0 Monocytes % (Manual) 1.0 Eosinophils % (Manual) 0 Basophils % (Manual) 0 Metamyelocytes % 1.0 Myelocytes % 0 Promyelocytes % 0 Blast Cells % 0 Nucleated RBC % 0.5 Seg Neutrophils # Man 11.5 H Band Neutrophils # 13.6 Lymphocytes # (Manual) 0.5 L Abs React Lymphs (Man) 0.0 Monocytes # (Manual) 0.3 Eosinophils # (Manual) 0.0 Basophils # (Manual) 0.0 Metamyelocytes # 0.3 Myelocytes # 0.0 Promyelocytes # 0.0 Blast Cells # 0.0 WBC Morphology Not Reportable Hypersegmented Neuts Not Reportable Hyposegmented Neuts Not Reportable Hypogranular Neuts Not Reportable Smudge Cells Not Reportable Toxic Granulation Not Reportable Toxic Vacuolation Not Reportable Dohle Bodies Not Reportable Pelger-Huet Anomaly Not Reportable Mahesh Rods Not Reportable Platelet Estimate Consistent w auto Clumped Platelets Not Reportable Plt Clumps, EDTA Not Reportable Large Platelets Not Reportable Giant Platelets Not Reportable Platelet Satelliting Not Reportable Plt Morphology Comment Not Reportable RBC Morphology Not Reportable Dimorphic RBCs Not Reportable Polychromasia Not Reportable Hypochromasia Not Reportable Poikilocytosis Not Reportable Anisocytosis 1+ Microcytosis Not Reportable Macrocytosis Not Reportable Spherocytes Not Reportable Pappenheimer Bodies Not Reportable Sickle Cells Not Reportable Target Cells Not Reportable Tear Drop Cells Not Reportable Ovalocytes Not Reportable Helmet Cells Not Reportable Hernandez-Glazier Bodies Not Reportable [place] Rings Not Reportable Nory Cells Not Reportable Bite Cells Not Reportable Crenated Cell Not Reportable Elliptocytes Not Reportable Acanthocytes (Spur) Not Reportable Rouleaux Not Reportable Hemoglobin C Crystals Not Reportable Schistocytes Not Reportable Malaria parasites Not Reportable Mk Bodies Not Reportable Hem Pathologist Commnt No POC ABG pH POC ABG pCO2 POC ABG pO2 POC ABG HCO3 POC ABG Total CO2 POC ABG O2 Sat POC ABG Base Excess FiO2 Sodium 146 H Potassium 3.3 L Chloride 108.2 H Carbon Dioxide 29 Anion Gap 12 BUN 75 H Creatinine 2.9 H Estimated GFR 28 BUN/Creatinine Ratio 26 Glucose 60 L POC Glucose 59 L Calcium 7.9 L Phosphorus Magnesium Total Bilirubin 0.20 AST 39 ALT 26 Alkaline Phosphatase 173 H Total Protein 6.1 L Albumin 1.4 L Albumin/Globulin Ratio 0.3 06/26/18 06/26/18 06/26/18 05:59 06:22 11:52 WBC RBC Hgb Hct MCV MCH MCHC RDW Plt Count Add Manual Diff Total Counted Seg Neutrophils % Seg Neuts % (Manual) Band Neutrophils % Lymphocytes % (Manual) Reactive Lymphs % (Man) Monocytes % (Manual) Eosinophils % (Manual) Basophils % (Manual) Metamyelocytes % Myelocytes % Promyelocytes % Blast Cells % Nucleated RBC % Seg Neutrophils # Man Band Neutrophils # Lymphocytes # (Manual) Abs React Lymphs (Man) Monocytes # (Manual) Eosinophils # (Manual) Basophils # (Manual) Metamyelocytes # Myelocytes # Promyelocytes # Blast Cells # WBC Morphology Hypersegmented Neuts Hyposegmented Neuts Hypogranular Neuts Smudge Cells Toxic Granulation Toxic Vacuolation Dohle Bodies Pelger-Huet Anomaly Mahesh Rods Platelet Estimate Clumped Platelets Plt Clumps, EDTA Large Platelets Giant Platelets Platelet Satelliting Plt Morphology Comment RBC Morphology Dimorphic RBCs Polychromasia Hypochromasia Poikilocytosis Anisocytosis Microcytosis Macrocytosis Spherocytes Pappenheimer Bodies Sickle Cells Target Cells Tear Drop Cells Ovalocytes Helmet Cells Hernandez-Glazier Bodies [place] Rings Nory Cells Bite Cells Crenated Cell Elliptocytes Acanthocytes (Spur) Rouleaux Hemoglobin C Crystals Schistocytes Malaria parasites Mk Bodies Hem Pathologist Commnt POC ABG pH 7.269 L POC ABG pCO2 68.0 H POC ABG pO2 73 L POC ABG HCO3 31.1 POC ABG Total CO2 33 POC ABG O2 Sat 91 POC ABG Base Excess 4 FiO2 40 Sodium Potassium Chloride Carbon Dioxide Anion Gap BUN Creatinine Estimated GFR BUN/Creatinine Ratio Glucose POC Glucose 130 H 80 Calcium Phosphorus Magnesium Total Bilirubin AST ALT Alkaline Phosphatase Total Protein Albumin Albumin/Globulin Ratio 06/26/18 17:28 WBC RBC Hgb Hct MCV MCH MCHC RDW Plt Count Add Manual Diff Total Counted Seg Neutrophils % Seg Neuts % (Manual) Band Neutrophils % Lymphocytes % (Manual) Reactive Lymphs % (Man) Monocytes % (Manual) Eosinophils % (Manual) Basophils % (Manual) Metamyelocytes % Myelocytes % Promyelocytes % Blast Cells % Nucleated RBC % Seg Neutrophils # Man Band Neutrophils # Lymphocytes # (Manual) Abs React Lymphs (Man) Monocytes # (Manual) Eosinophils # (Manual) Basophils # (Manual) Metamyelocytes # Myelocytes # Promyelocytes # Blast Cells # WBC Morphology Hypersegmented Neuts Hyposegmented Neuts Hypogranular Neuts Smudge Cells Toxic Granulation Toxic Vacuolation Dohle Bodies Pelger-Huet Anomaly Mahesh Rods Platelet Estimate Clumped Platelets Plt Clumps, EDTA Large Platelets Giant Platelets Platelet Satelliting Plt Morphology Comment RBC Morphology Dimorphic RBCs Polychromasia Hypochromasia Poikilocytosis Anisocytosis Microcytosis Macrocytosis Spherocytes Pappenheimer Bodies Sickle Cells Target Cells Tear Drop Cells Ovalocytes Helmet Cells Hernandez-Glazier Bodies [place] Rings Nory Cells Bite Cells Crenated Cell Elliptocytes Acanthocytes (Spur) Rouleaux Hemoglobin C Crystals Schistocytes Malaria parasites Mk Bodies Hem Pathologist Commnt POC ABG pH POC ABG pCO2 POC ABG pO2 POC ABG HCO3 POC ABG Total CO2 POC ABG O2 Sat POC ABG Base Excess FiO2 Sodium Potassium Chloride Carbon Dioxide Anion Gap BUN Creatinine Estimated GFR BUN/Creatinine Ratio Glucose POC Glucose 86 Calcium Phosphorus Magnesium Total Bilirubin AST ALT Alkaline Phosphatase Total Protein Albumin Albumin/Globulin Ratio
[2018-06-27] MEDS: LOPRESSOR IV SCH ×4 (00:06→18:00)
[2018-06-27] MEDS: HumuLIN R SUB-Q SCH ×4 (00:16→18:00)
[2018-06-27] MEDS: Vasostrict 20 UNIT in NACL 0.9% 100 ML IV SCH (02:50)
[2018-06-27] MEDS: LEVOPHED DRIP 4 MG/NS 250 ML 4 MG/250 ML BAG IV SCH (02:50)
--- NOTE | 2018-06-27 03:00 | XRay Report ---
FINAL REPORT EXAM: XR CHEST 1V AP HISTORY: follow up respiratory failure TECHNIQUE: A portable upright view the chest was obtained and compared to the study of 06/26/2018. FINDINGS: The heart is mildly enlarged. The lungs remain diffusely congested with bilateral effusions. There is stable extensive airspace disease in the lung bases. The ET tube and nasogastric tube appear in good position. The tip of the right-sided PICC line is in the proximal superior vena cava. The skeletal structures otherwise are unchanged. IMPRESSION: Stable diffuse pulmonary vascular congestion with bilateral effusions and airspace disease as described.
[2018-06-27 06:09] LABS: Hematocrit 21.2 % (35.5-45.6); Hemoglobin 6.7 gm/dl (11.8-15.2)
[2018-06-27 06:58] LABS: Calcium 8.1 mg/dL (8.4-10.2)
--- NOTE | 2018-06-27 08:22 | Progress Note ---
Assessment and Plan 1. Acute kidney injury: Initial MARYLOU in the setting of bilateral hydronephrosis secondary to pelvic mass , now s/p bilateral nephrostomy. Recurrent Acute kidney injury likely ATN. Patient was last dialyzed on 06/02/18. Creatinine level has increased since yesterday. BP remains low, on Vasopressin. 2. Electrolytes: Hyperkalemia, Insulin-dextrose, Albuterol and IV Calcium ordered. Monitor K level. 3. Hypotension: On Vasopressin. 4. Bowel obstruction: S/p colostomy. 5. Bilateral hydronephrosis: Secondary to pelvic mass. S/p bilateral nephrostomy. 6. Respiratory failure: On vent. 7. S/p Cardiac arrest. 8. Anemia. 9. 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 Interval history: Patient was seen and examined at the bedside. Objective - Vital Signs Vital signs: Vital Signs - 12hr 06/26/18 06/26/18 06/26/18 20:30 20:45 21:00 Temperature Pulse Rate 125 H 122 H 122 H Pulse Rate [ From Monitor] Respiratory 24 24 24 Rate Blood Pressure 112/69 106/65 109/68 O2 Sat by Pulse 95 95 94 Oximetry 06/26/18 06/26/18 06/26/18 21:15 21:30 21:45 Temperature Pulse Rate 121 H 122 H 122 H Pulse Rate [ From Monitor] Respiratory 24 24 24 Rate Blood Pressure 109/68 110/71 111/72 O2 Sat by Pulse 94 95 95 Oximetry 06/26/18 06/26/18 06/26/18 22:00 22:15 22:30 Temperature Pulse Rate 125 H 122 H 123 H Pulse Rate [ From Monitor] Respiratory 24 24 24 Rate Blood Pressure 114/72 116/75 121/74 O2 Sat by Pulse 95 95 96 Oximetry 06/26/18 06/26/18 06/26/18 22:45 23:00 23:15 Temperature Pulse Rate 123 H 121 H 118 H Pulse Rate [ From Monitor] Respiratory 24 24 24 Rate Blood Pressure 124/76 105/66 94/55 O2 Sat by Pulse 96 96 96 Oximetry 06/26/18 06/26/18 06/26/18 23:18 23:30 23:45 Temperature Pulse Rate 138 H 124 H 124 H Pulse Rate [ From Monitor] Respiratory 24 24 Rate Blood Pressure 94/55 122/76 124/77 O2 Sat by Pulse 96 96 96 Oximetry 06/26/18 06/27/18 06/27/18 23:56 00:00 00:06 Temperature Pulse Rate 122 H 122 H 124 H Pulse Rate [ 121 H From Monitor] Respiratory 24 24 Rate Blood Pressure 124/77 116/70 124/77 O2 Sat by Pulse 96 96 Oximetry 06/27/18 06/27/18 06/27/18 00:15 00:30 00:45 Temperature Pulse Rate 121 H 121 H 121 H Pulse Rate [ From Monitor] Respiratory 24 24 25 H Rate Blood Pressure 121/73 120/75 123/80 O2 Sat by Pulse 96 96 97 Oximetry 06/27/18 06/27/18 06/27/18 01:00 01:15 01:30 Temperature 98.9 F Pulse Rate 119 H 119 H 118 H Pulse Rate [ From Monitor] Respiratory 24 24 24 Rate Blood Pressure 123/80 118/77 122/77 O2 Sat by Pulse 97 97 97 Oximetry 06/27/18 06/27/18 06/27/18 01:45 02:00 02:15 Temperature Pulse Rate 118 H 117 H 117 H Pulse Rate [ From Monitor] Respiratory 24 24 24 Rate Blood Pressure 127/79 121/77 126/82 O2 Sat by Pulse 97 97 98 Oximetry 06/27/18 06/27/18 06/27/18 02:30 02:45 03:00 Temperature Pulse Rate 118 H 116 H 115 H Pulse Rate [ From Monitor] Respiratory 23 24 24 Rate Blood Pressure 138/92 125/80 123/79 O2 Sat by Pulse 98 97 98 Oximetry 06/27/18 06/27/18 06/27/18 03:15 03:19 03:30 Temperature Pulse Rate 113 H 111 H 113 H Pulse Rate [ From Monitor] Respiratory 24 24 Rate Blood Pressure 116/72 116/72 130/82 O2 Sat by Pulse 98 98 99 Oximetry 06/27/18 06/27/18 06/27/18 03:45 04:00 04:15 Temperature 99.3 F Pulse Rate 112 H 109 H 109 H Pulse Rate [ 121 H From Monitor] Respiratory 24 24 24 Rate Blood Pressure 112/69 102/61 110/68 O2 Sat by Pulse 96 97 97 Oximetry 1006/27/18 06/27/18 04:30 04:45 05:00 Temperature Pulse Rate 109 H 107 H 106 H Pulse Rate [ From Monitor] Respiratory 24 24 24 Rate Blood Pressure 109/69 106/65 108/67 O2 Sat by Pulse 98 98 98 Oximetry 06/27/18 06/27/18 06/27/18 05:15 05:30 05:45 Temperature Pulse Rate 104 H 103 H 102 H Pulse Rate [ From Monitor] Respiratory 24 24 24 Rate Blood Pressure 103/60 104/62 99/55 O2 Sat by Pulse 98 98 98 Oximetry 06/27/18 06/27/18 06/27/18 06:00 06:07 06:15 Temperature Pulse Rate 101 H 102 H 101 H Pulse Rate [ From Monitor] Respiratory 24 24 Rate Blood Pressure 105/59 99/55 102/64 O2 Sat by Pulse 98 99 Oximetry 06/27/18 06/27/18 06/27/18 06:30 06:45 07:48 Temperature 99.9 F H Pulse Rate 100 H 100 H Pulse Rate [ From Monitor] Respiratory 30 H 26 H Rate Blood Pressure 113/74 122/78 O2 Sat by Pulse 99 99 Oximetry - General Appearance General appearance: well-developed, appears stated age, intubated, other (on vent, FiO2 60%) EENT: ATNC, other (pupils are not reacting) Neck: supple Respiratory: Present: Other (corase breath sounds) Cardiology: regular, S1S2, no murmurs Gastrointestinal: normoactive bowel sounds, other (bilateral nephrostomy, ostomy and drain noted) Integumentary: no rash Neurologic: obtunded Musculoskeletal: other (dependent edema noted, left groin temp catheter) - Lab 06/27/18 05:20 06/27/18 05:20 Most recent lab results Calcium 8.1 mg/dL (8.4-10.2) L 06/27/18 05:20 Phosphorus 4.30 mg/dL (2.5-4.5) D 06/27/18 05:20 Magnesium 2.20 mg/dL (1.7-2.3) 06/27/18 05:20 Urine Creatinine 99.7 mg/dL (0.1-20.0) H 06/23/18 00:30 Urine Sodium Not Reportable 06/23/18 00:30 Urine Total Protein 272 mg/dL (5-11.8) H 06/23/18 00:30
--- NOTE | 2018-06-27 08:52 | Progress Note ---
Assessment and Plan Assessment and plan: Assessment and plan: s/p cardiorespiratory arrest. Patient developed shortness of breath overnight of 06/22/18. ABG was done showing pH 7.195. He was put on BIPAP, repeat ABG was slightly improved pH7.32. However patient became worse developed bradycardia with PEA arrest, cardiorespiratory arrest. Ally brower called at 7:17 am on 06/23/18. Code run as per protocol. He had CPR, multiple rounds of epinephrine, bicarb, and was intubated during code. It was a prolonged resuscitation effort and eventually regained pulse and code terminated 07:45 am. Patient was then transferred to ICU. After several minutes he had another cardiorespiratory arrest and ally brower called again at 08:09 am. CPR was done, multiple doses of Epinephrine and bicarb given and he regained pulse and code terminated at 08:19. He is unresponsive. Intubated on ventilator. I discussed case with Hat Band Attacher, Dr. Lopez and it was decided to initiate heparin drip. Patient had DVT right lower ext but was not on anticoagulation because of nephrostomy tubes, major abdominal surgery. Vasc surgery stated ok to start anticoagulation. 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 Differentiated carcinoma with squamous differentiation on pathology but unsure of exact primary Continue pain control PRN Bilateral pneumonia (possibly aspiration) Monitor respiratory status Continue Nebs PRN Bilateral moderate pleural effusion Cardiogenic shock Patient was hypotensive post cardio-respiratory arrest. He was started on Levophed. Bp improved few hours later and Levophed discontinued, but now resumed since BP low again On Levophed and vasopressin Sepsis was on Antibiotics, completed Acute kidney injury (obstructive uropathy vs contrast nephropathy) was on hemodialysis temporarily. Stable renal function. Dialysis catheter removed as per nephrology Continue to monitor BMP and kidney fuction Had bilateral nephrostomy tubes placed 05/14/[address] Freeman. Hyperkalemia. Anemia, Hgb 6.7 today. Will transfuse 1 unit PRBC Acute deep venous thrombosis Started heparin drip, but discontinued because of bleeding from Bowel obstruction s/p surgery Etiology secondary to extrinsic compression from mass. Continue TPN Moderate to severe protein calorie malnutrition Anemia due to Chronic illness s/p PRBC transfusion. Plan was for him to go to LTAC prior to cardioresp arrest. Very Poor prognosis with prolonged cardiorespiratory arrest. Anoxic encephalopathy. Patient evaluated by Neuologist, Dr. Ye and she discussed with patient's sister on 06/24/18 patient unresponsive, post prolonged cardiorespiratory arrest Consulted Dr. Melendrez, Neurology. He evaluated patient and also discussed with sister on 06/25/18 Discussed with sister, Vibha Dinh in detail several times.. History Interval history: Patient had cardiorespiratory arrest x2, resuscitated both times, now intubated , still unresponsive Hospitalist Physical - Physical exam Narrative exam: GEN:Now Intubated, on mechanical ventilator, HEENT: Normocephalic, atraumatic, Neck: supple, No JVD Lungs: Decreased breath sounds both bases, no crackles Heart:S1 and S2 regular ,no murmurs, rubs or gallop Abd:soft, ostomy, bilat nephrostomy tubes, Ext: No edema, clubbing or cyanosis Neuro: Intubated, Unresponsive, on ventilator,pupils dilated, fixed, no corneal reflex - Constitutional Vitals: Temp Pulse Resp BP Pulse Ox 99.9 F H 100 H 26 H 122/78 99 06/27/18 07:48 06/27/18 06:45 06/27/18 06:45 06/27/18 06:45 06/27/18 06:45 General appearance: Present: no acute distress Results - Labs CBC & Chem 7: 06/27/18 10:56 06/27/18 10:56 Labs: Laboratory Last Values WBC 26.2 K/mm3 (4.5-11.0) H 06/26/18 04:00 RBC 3.16 M/mm3 (3.65-5.03) L 06/26/18 04:00 Hgb 6.7 gm/dl (11.8-15.2) L 06/27/18 05:20 Hct 21.2 % (35.5-45.6) L D 06/27/18 05:20 MCV 91 fl (84-94) 06/26/18 04:00 MCH 29 pg (28-32) 06/26/18 04:00 MCHC 32 % (32-34) 06/26/18 04:00 RDW 18.2 % (13.2-15.2) H 06/26/18 04:00 Plt Count 285 K/mm3 (140-440) 06/27/18 05:20 Lymph % (Auto) 10.0 % (13.4-35.0) L 06/21/18 05:50 Pershing % (Auto) 7.4 % (0.0-7.3) H 06/21/18 05:50 Eos % (Auto) 0.4 % (0.0-4.3) 06/21/18 05:50 Baso % (Auto) 0.9 % (0.0-1.8) 06/21/18 05:50 Lymph # 1.0 K/mm3 (1.2-5.4) L 06/21/18 05:50 Pershing # 0.7 K/mm3 (0.0-0.8) 06/21/18 05:50 Eos # 0.0 K/mm3 (0.0-0.4) 06/21/18 05:50 Baso # 0.1 K/mm3 (0.0-0.1) 06/21/18 05:50 Add Manual Diff Complete 06/26/18 04:00 Total Counted 200 06/26/18 04:00 Seg Neutrophils % Sheetmetal Worker 06/26/18 04:00 Seg Neuts % (Manual) 44.0 % (40.0-70.0) 06/26/18 04:00 Band Neutrophils % 52.0 % 06/26/18 04:00 Lymphocytes % (Manual) 2.0 % (13.4-35.0) L 06/26/18 04:00 Reactive Lymphs % (Man) 0 % 06/26/18 04:00 Monocytes % (Manual) 1.0 % (0.0-7.3) 06/26/18 04:00 Eosinophils % (Manual) 0 % (0.0-4.3) 06/26/18 04:00 Basophils % (Manual) 0 % (0.0-1.8) 06/26/18 04:00 Metamyelocytes % 1.0 % 06/26/18 04:00 Myelocytes % 0 % 06/26/18 04:00 Promyelocytes % 0 % 06/26/18 04:00 Blast Cells % 0 % 06/26/18 04:00 Nucleated RBC % 0.5 % (0.0-0.9) 06/26/18 04:00 Seg Neutrophils # 7.9 K/mm3 (1.8-7.7) H 06/21/18 05:50 Seg Neutrophils # Man 11.5 K/mm3 (1.8-7.7) H 06/26/18 04:00 Band Neutrophils # 13.6 K/mm3 06/26/18 04:00 Lymphocytes # (Manual) 0.5 K/mm3 (1.2-5.4) L 06/26/18 04:00 Abs React Lymphs (Man) 0.0 K/mm3 06/26/18 04:00 Monocytes # (Manual) 0.3 K/mm3 (0.0-0.8) 06/26/18 04:00 Eosinophils # (Manual) 0.0 K/mm3 (0.0-0.4) 06/26/18 04:00 Basophils # (Manual) 0.0 K/mm3 (0.0-0.1) 06/26/18 04:00 Metamyelocytes # 0.3 K/mm3 06/26/18 04:00 Myelocytes # 0.0 K/mm3 06/26/18 04:00 Promyelocytes # 0.0 K/mm3 06/26/18 04:00 Blast Cells # 0.0 K/mm3 06/26/18 04:00 WBC Morphology Not Reportable 06/26/18 04:00 Hypersegmented Neuts Not Reportable 06/26/18 04:00 Hyposegmented Neuts Not Reportable 06/26/18 04:00 Hypogranular Neuts Not Reportable 06/26/18 04:00 Smudge Cells Not Reportable 06/26/18 04:00 Toxic Granulation Not Reportable 06/26/18 04:00 Toxic Vacuolation Not Reportable 06/26/18 04:00 Dohle Bodies Not Reportable 06/26/18 04:00 Pelger-Huet Anomaly Not Reportable 06/26/18 04:00 Mahesh Rods Not Reportable 06/26/18 04:00 Platelet Estimate Consistent w auto 06/26/18 04:00 Clumped Platelets Not Reportable 06/26/18 04:00 Plt Clumps, EDTA Not Reportable 06/26/18 04:00 Large Platelets Not Reportable 06/26/18 04:00 Giant Platelets Not Reportable 06/26/18 04:00 Platelet Satelliting Not Reportable 06/26/18 04:00 Plt Morphology Comment Not Reportable 06/26/18 04:00 RBC Morphology Not Reportable 06/26/18 04:00 Dimorphic RBCs Not Reportable 06/26/18 04:00 Polychromasia Not Reportable 06/26/18 04:00 Hypochromasia Not Reportable 06/26/18 04:00 Poikilocytosis Not Reportable 06/26/18 04:00 Anisocytosis 1+ 06/26/18 04:00 Microcytosis Not Reportable 06/26/18 04:00 Macrocytosis Not Reportable 06/26/18 04:00 Spherocytes Not Reportable 06/26/18 04:00 Pappenheimer Bodies Not Reportable 06/26/18 04:00 Sickle Cells Not Reportable 06/26/18 04:00 Target Cells Not Reportable 06/26/18 04:00 Tear Drop Cells Not Reportable 06/26/18 04:00 Ovalocytes Not Reportable 06/26/18 04:00 Stomatocytes 1+ 06/24/18 04:30 Helmet Cells Not Reportable 06/26/18 04:00 Hernandez-Morral Bodies Not Reportable 06/26/18 04:00 Bokoshe Rings Not Reportable 06/26/18 04:00 Alvo Cells Not Reportable 06/26/18 04:00 Bite Cells Not Reportable 06/26/18 04:00 Crenated Cell Not Reportable 06/26/18 04:00 Elliptocytes Not Reportable 06/26/18 04:00 Acanthocytes (Spur) Not Reportable 06/26/18 04:00 Rouleaux Not Reportable 06/26/18 04:00 Hemoglobin C Crystals Not Reportable 06/26/18 04:00 Schistocytes Not Reportable 06/26/18 04:00 Malaria parasites Not Reportable 06/26/18 04:00 Mk Bodies Not Reportable 06/26/18 04:00 Hem Pathologist Commnt No 06/26/18 04:00 PT 15.2 Sec. (12.2-14.9) H 06/23/18 08:34 INR 1.15 (0.87-1.13) H 06/23/18 08:34 APTT 41.9 Sec. (24.2-36.6) H 06/23/18 08:34 Heparin Anti-Xa Level 0.49 U.I./ml (0.3-0.7) 06/24/18 22:20 POC ABG pH 7.251 (7.35-7.45) L 06/27/18 03:34 POC ABG pCO2 63.7 (35-45) H 06/27/18 03:34 POC ABG pO2 157 (80-105) H 06/27/18 03:34 POC ABG HCO3 28.0 06/27/18 03:34 POC ABG Total CO2 30 06/27/18 03:34 POC ABG O2 Sat 99 06/27/18 03:34 POC ABG Base Excess 1 06/27/18 03:34 FiO2 70 % 06/27/18 03:34 Sodium 141 mmol/L (137-145) 06/27/18 05:20 Potassium 5.9 mmol/L (3.6-5.0) H D 06/27/18 05:20 Chloride 104.8 mmol/L (98-107) 06/27/18 05:20 Carbon Dioxide 25 mmol/L (22-30) 06/27/18 05:20 Anion Gap 17 mmol/L 06/27/18 05:20 BUN 87 mg/dL (9-20) H 06/27/18 05:20 Creatinine 4.4 mg/dL (0.8-1.5) H D 06/27/18 05:20 Estimated GFR 17 ml/min 06/27/18 05:20 BUN/Creatinine Ratio 20 % 06/27/18 05:20 Glucose 128 mg/dL (75-100) H 06/27/18 05:20 POC Glucose 102 (70-105) 06/27/18 00:13 Hemoglobin A1c 5.7 % (4-6) 05/14/18 05:05 Lactic Acid 3.80 mmol/L (0.7-2.0) H* 05/26/18 11:00 Calcium 8.1 mg/dL (8.4-10.2) L 06/27/18 05:20 Phosphorus 4.30 mg/dL (2.5-4.5) D 06/27/18 05:20 Magnesium 2.20 mg/dL (1.7-2.3) 06/27/18 05:20 Iron 24 ug/dL (49-181) L 05/16/18 07:02 TIBC 160 mcg/dL (250-450) L 05/16/18 07:02 Ferritin 325.8 ng/mL (13.0-400.0) 05/16/18 07:02 Total Bilirubin 0.20 mg/dL (0.1-1.2) 06/26/18 04:00 AST 39 units/L (5-40) 06/26/18 04:00 ALT 26 units/L (7-56) 06/26/18 04:00 Alkaline Phosphatase 173 units/L (35-129) H 06/26/18 04:00 Lactate Dehydrogenase 297 units/L (91-180) H 06/08/18 21:36 Total Creatine Kinase 34 units/L (55-170) L 06/12/18 04:12 CK-MB (CK-2) 2.3 ng/mL (0.0-4.0) 05/25/18 22:46 CK-MB (CK-2) Rel Index 1.4 (0-4) 05/25/18 22:46 C-Reactive Protein 3.60 mg/dL (0.00-1.30) H 06/10/18 17:15 Total Protein 6.1 g/dL (6.3-8.2) L 06/26/18 04:00 Albumin 1.4 g/dL (3.9-5) L 06/26/18 04:00 Albumin/Globulin Ratio 0.3 % 06/26/18 04:00 Prealbumin 0.130 g/L (0.200-0.400) L 06/17/18 05:52 Triglycerides 56 mg/dL (2-149) 06/19/18 06:20 CA 19-9 Antigen 57 U/mL (<34) H 06/08/18 21:43 Prostate Specific Ag 0.96 ng/mL (0.00-4.00) 05/14/18 13:29 Free PSA See scanned result 06/08/18 21:44 % Free PSA Calc See scanned result 06/08/18 21:44 Total PSA See scanned result 06/08/18 21:44 Vitamin B12 359.2 pg/mL (211-911) 05/16/18 07:02 Folate 5.39 ng/mL (7.3-26.0) L 05/16/18 07:02 TSH 3.180 mlU/mL (0.270-4.200) 05/14/18 05:05 PTH Intact 65.37 pg/mL (15-65) H 05/14/18 05:05 Urine Color Yellow (Yellow) 06/24/18 00:30 Urine Turbidity Cloudy (Clear) 06/24/18 00:30 Urine pH 5.0 (5.0-7.0) 06/24/18 00:30 Ur Specific [place] 1.014 (1.003-1.030) 06/24/18 00:30 Urine Protein 100 mg/dl mg/dL (Negative) 06/24/18 00:30 Urine Glucose (UA) Neg mg/dL (Negative) 06/24/18 00:30 Urine Ketones Neg mg/dL (Negative) 06/24/18 00:30 Urine Blood Mod (Negative) 06/24/18 00:30 Urine Nitrite Neg (Negative) 06/24/18 00:30 Urine Bilirubin Neg (Negative) 06/24/18 00:30 Urine Urobilinogen < 2.0 mg/dL (<2.0) 06/24/18 00:30 Ur Leukocyte Esterase Tr (Negative) 06/24/18 00:30 Urine WBC (Auto) 8.0 /HPF (0.0-6.0) H 06/24/18 00:30 Urine RBC (Auto) 57.0 /HPF (0.0-6.0) 06/24/18 00:30 U Epithel Cells (Auto) 1.0 /HPF (0-13.0) 06/11/18 07:41 Urine Bacteria (Auto) 1+ /HPF (Negative) 06/24/18 00:30 Urine WBC Clumps Few /HPF 05/13/18 19:39 Amorphous Crystals 2+ 06/24/18 00:30 Urine Mucus Few /HPF 06/11/18 07:41 Ur Yeast w Hyphae Few /HPF 06/11/18 07:41 Urine Yeast (Budding) 3+ /HPF 06/24/18 00:30 Urine Creatinine 99.7 mg/dL (0.1-20.0) H 06/23/18 00:30 Urine Sodium Not Reportable 06/23/18 00:30 Urine Potassium 32.11 mmol/L 06/23/18 00:30 Urine Chloride 10.0 mmolL (110-250) L 06/23/18 00:30 Urine Total Protein 272 mg/dL (5-11.8) H 06/23/18 00:30 Fluid Type Ascitic 06/03/18 Unknown Fluid Color Yellow 06/03/18 Unknown Fluid Appearance Cloudy 06/03/18 Unknown Fluid WBC 39822 /mm3 06/03/18 Unknown Fluid RBC 9 /mm3 06/03/18 Unknown Fluid Seg Neutrophils 98.0 % 06/03/18 Unknown Fluid Lymphocytes 2.0 % 06/03/18 Unknown Fluid Reactive Lymphs 0 % 06/03/18 Unknown Fluid Monocytes 0 % 06/03/18 Unknown Fluid Eosinophils 0 % 06/03/18 Unknown Fluid Basophils 0 % 06/03/18 Unknown Fluid Glucose 10 mg/dL (40-70) L 06/03/18 Unknown Fluid Total Protein 3.7 (15.0-45.0) L 06/03/18 Unknown Fluid Albumin 0.8 g/dL 06/03/18 Unknown Fluid LDH > 32843 06/03/18 Unknown Fluid Amylase 126 06/03/18 Unknown Vancomycin Trough 25.1 ug/mL (5.0-20.0) H 05/25/18 22:46 Random Vancomycin 34.3 ug/mL (0-40.0) 05/26/18 11:01 Urine Opiates Screen Presumptive negative 06/23/18 00:30 Urine Methadone Screen Presumptive negative 06/23/18 00:30 Ur Barbiturates Screen Presumptive negative 06/23/18 00:30 Ur Phencyclidine Scrn Presumptive negative 06/23/18 00:30 Ur Amphetamines Screen Presumptive negative 06/23/18 00:30 U Benzodiazepines Scrn Presumptive negative 06/23/18 00:30 Urine Cocaine Screen Presumptive negative 06/23/18 00:30 U Marijuana (THC) Screen Presumptive negative 06/23/18 00:30 Drugs of Abuse Note Disclamer 06/23/18 00:30 ZEUS Screen Negative (Negative) 05/14/18 05:05 Proteinase 3 (PR3) Ab <1.0 AI (<1.0) 05/14/18 05:05 Myeloperoxidase Ab <1.0 AI (<1.0) 05/14/18 05:05 Complement C3 147 mg/dL (82-185) 05/14/18 05:05 Complement C4 45 mg/dL (15-53) 05/14/18 05:05 Hepatitis A IgM Ab Nonreactive (NonReactive) 05/27/18 13:41 Hep Bs Antigen Non-reactive (Negative) 05/27/18 13:41 Hep B Core IgM Ab Non-reactive (NonReactive) 05/27/18 13:41 Hepatitis C Antibody Non-reactive (NonReactive) 05/27/18 13:41 Miscellaneous Test Flexitest 1 H 06/09/18 07:37 Blood Type O POSITIVE 06/23/18 09:40 Antibody Screen Negative 06/23/18 09:40 Crossmatch See Detail 06/23/18 09:40
[2018-06-27] MEDS ORDERED: CALCIUM CHLORIDE 1,000 MG in NACL 0.9% 100 ML IV ONE (09:00)
[2018-06-27] MEDS ORDERED: D50W (25GM) Syringe IV ONE (09:00)
[2018-06-27] MEDS ORDERED: D10W 1,000 ML IV SCH (09:00)
[2018-06-27] MEDS ORDERED: PROVENTIL IH ONE (09:00)
[2018-06-27] MEDS ORDERED: HumuLIN R IV ONE (09:00)
[2018-06-27 09:31] LABS: Hematocrit 21.6 % (35.5-45.6); Hemoglobin 6.9 gm/dl (11.8-15.2)
--- NOTE | 2018-06-27 09:50 | Progress Note ---
Assessment and Plan Acute hypoxemic respiratory failure Bilateral pneumonia, possibly aspiration. Sepsis syndrome. 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 Acute deep venous thrombosis. Hypertensive urgency. Hyperkalemia, now resolved. Moderate to severe protein calorie malnutrition Hypernatremia. Hypokalemia Hypochloremia. Anemia, normocytic. (ABLA) (Discussed at length with siblings; real possibility of brain ; asked family to seriously contemplate palliative care taking overall co-morbidities into consideration - they will discuss amongst themselves but want him to remain a full code for now) - continue full support but set rate incresaed to 24/min re: respiratory acidosis component - replaced potasium orally today (total 40 meq) - magnesium also replaced - VAP bundle addressed - complete neurologic w/up - consider NM brain flow scan if no clinical improvement next 24-48 hours - holding anticoagulation due to ABLA - continue supplemental oxygen to keep sats > 90% - repeat thoracentesis if clinically improves as may be futile procedure - optimize cardiac function - continue bronchodilators with pulmonary hygiene per RT - continue aspiration precautions - HD/UF for toxin and volume clearance per nephrology prescription (s/p vascath placement) - follow clinically off AB's - continue TPN for now (enteral nutrition once cleared by surgery) - Malignancy per heme-oncologist - continue mobility protocol for pressure ulcer prophylaxis - s/p surgery 05/26 (had ex-lap; matted abdominal organs, pus) - s/p bilateral nephrostomy tubes placed 05/14/[address] Freeman. - continue other care per attending / other consultants - prn paracentesis - continue other care per attending / other consultants .... discharge planning ongoing concurrently ... re-evaluate in am & prn The high probability of a clinically significant, sudden or life threatening deterioration of the [respiratory,cardiac, urologic and renal] system(s) required my full and direct attention, intervention and personal management. The aggregate critical care time was [55] minutes without overlap. 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 Interval history: Patient is seen today for: Acute Hypoxemic Resp Failure; Sepsis Syndrome; Acute VTE; Prostate Cancer Seen and examined at bedside; 24hour events reviewed; nursing and respiratory care staff consulted; no adverse overnight events reported to me; resting peacefully in bed; Objective Vital Signs - 12hr 06/26/18 06/26/18 06/26/18 22:00 22:15 22:30 Temperature Pulse Rate 125 H 122 H 123 H Pulse Rate [ From Monitor] Respiratory 24 24 24 Rate Blood Pressure 114/72 116/75 121/74 O2 Sat by Pulse 95 95 96 Oximetry 06/26/18 06/26/18 06/26/18 22:45 23:00 23:15 Temperature Pulse Rate 123 H 121 H 118 H Pulse Rate [ From Monitor] Respiratory 24 24 24 Rate Blood Pressure 124/76 105/66 94/55 O2 Sat by Pulse 96 96 96 Oximetry 06/26/18 06/26/18 06/26/18 23:18 23:30 23:45 Temperature Pulse Rate 138 H 124 H 124 H Pulse Rate [ From Monitor] Respiratory 24 24 Rate Blood Pressure 94/55 122/76 124/77 O2 Sat by Pulse 96 96 96 Oximetry 06/26/18 06/27/18 06/27/18 23:56 00:00 00:06 Temperature Pulse Rate 122 H 122 H 124 H Pulse Rate [ 121 H From Monitor] Respiratory 24 24 Rate Blood Pressure 124/77 116/70 124/77 O2 Sat by Pulse 96 96 Oximetry 06/27/18 06/27/18 06/27/18 00:15 00:30 00:45 Temperature Pulse Rate 121 H 121 H 121 H Pulse Rate [ From Monitor] Respiratory 24 24 25 H Rate Blood Pressure 121/73 120/75 123/80 O2 Sat by Pulse 96 96 97 Oximetry 06/27/18 06/27/18 06/27/18 01:00 01:15 01:30 Temperature 98.9 F Pulse Rate 119 H 119 H 118 H Pulse Rate [ From Monitor] Respiratory 24 24 24 Rate Blood Pressure 123/80 118/77 122/77 O2 Sat by Pulse 97 97 97 Oximetry 06/27/18 06/27/18 06/27/18 01:45 02:00 02:15 Temperature Pulse Rate 118 H 117 H 117 H Pulse Rate [ From Monitor] Respiratory 24 24 24 Rate Blood Pressure 127/79 121/77 126/82 O2 Sat by Pulse 97 97 98 Oximetry 06/27/18 06/27/18 06/27/18 02:30 02:45 03:00 Temperature Pulse Rate 118 H 116 H 115 H Pulse Rate [ From Monitor] Respiratory 23 24 24 Rate Blood Pressure 138/92 125/80 123/79 O2 Sat by Pulse 98 97 98 Oximetry 06/27/18 06/27/18 06/27/18 03:15 03:19 03:30 Temperature Pulse Rate 113 H 111 H 113 H Pulse Rate [ From Monitor] Respiratory 24 24 Rate Blood Pressure 116/72 116/72 130/82 O2 Sat by Pulse 98 98 99 Oximetry 06/27/18 06/27/18 06/27/18 03:45 04:00 04:15 Temperature 99.3 F Pulse Rate 112 H 109 H 109 H Pulse Rate [ 121 H From Monitor] Respiratory 24 24 24 Rate Blood Pressure 112/69 102/61 110/68 O2 Sat by Pulse 96 97 97 Oximetry 06/27/18 06/27/18 06/27/18 04:30 04:45 05:00 Temperature Pulse Rate 109 H 107 H 106 H Pulse Rate [ From Monitor] Respiratory 24 24 24 Rate Blood Pressure 109/69 106/65 108/67 O2 Sat by Pulse 98 98 98 Oximetry 06/27/18 06/27/18 06/27/18 05:15 05:30 05:45 Temperature Pulse Rate 104 H 103 H 102 H Pulse Rate [ From Monitor] Respiratory 24 24 24 Rate Blood Pressure 103/60 104/62 99/55 O2 Sat by Pulse 98 98 98 Oximetry 06/27/18 06/27/18 06/27/18 06:00 06:07 06:15 Temperature Pulse Rate 101 H 102 H 101 H Pulse Rate [ From Monitor] Respiratory 24 24 Rate Blood Pressure 105/59 99/55 102/64 O2 Sat by Pulse 98 99 Oximetry 06/27/18 06/27/18 06/27/18 06:30 06:45 07:48 Temperature 99.9 F H Pulse Rate 100 H 100 H Pulse Rate [ From Monitor] Respiratory 30 H 26 H Rate Blood Pressure 113/74 122/78 O2 Sat by Pulse 99 99 Oximetry Constitutional: no acute distress, other (chronically ill looking middle aged AAM, normocephalic and atraumatic, ) Eyes: non-icteric ENT: oropharynx moist, other (ETT 23 cm BEATRIS) Neck: supple, no lymphadenopathy, no JVD, other (no thyromegaly) Effort: normal (riding set ventilator rate) Ascultation: Bilateral: diminished breath sounds (bases), rales (L>R base), rhonchi (scant in bases) Percussion: Bilateral: not dull, dull (bases) Cardiovascular: regular rate and rhythm, other (No R/M) Gastrointestinal: hypoactive bowel sounds, soft, tender (mild), non-distended, other (Distended; No palpable HSM, bilateral nephrostomy tubes,Colostomy, ZAKI drain) Integumentary: other (femoral vascath) Extremities: no cyanosis, no edema, pulses normal, no ischemia or petechiae Neurologic: other (obtunded) Psychiatric: other (Obtunded) CBC and BMP: 06/27/18 09:05 06/27/18 05:20 ABG, PT/INR, D-dimer: ABG POC ABG pH 7.251 (7.35-7.45) L 06/27/18 03:34 POC ABG pCO2 63.7 (35-45) H 06/27/18 03:34 POC ABG pO2 157 (80-105) H 06/27/18 03:34 POC ABG HCO3 28.0 06/27/18 03:34 POC ABG Total CO2 30 06/27/18 03:34 POC ABG O2 Sat 99 06/27/18 03:34 PT/INR, D-dimer PT 15.2 Sec. (12.2-14.9) H 06/23/18 08:34 INR 1.15 (0.87-1.13) H 06/23/18 08:34 Abnormal lab findings: Abnormal Labs 05/13/18 05/13/18 05/13/18 04:27 04:27 19:39 WBC RBC 3.13 L Hgb 9.4 L Hct 26.8 L MCV MCHC 35 H RDW Plt Count Lymph % (Auto) Graves % (Auto) 9.6 H Lymph # Graves # Seg Neutrophils % Seg Neuts % (Manual) Lymphocytes % (Manual) Monocytes % (Manual) Seg Neutrophils # Seg Neutrophils # Man Lymphocytes # (Manual) Monocytes # (Manual) PT INR APTT Heparin Anti-Xa Level POC ABG pH POC ABG pCO2 POC ABG pO2 Sodium 132 L Potassium 5.5 H Chloride 94.1 L Carbon Dioxide 19 L BUN 72 H Creatinine 14.4 H Glucose POC Glucose Lactic Acid Calcium Phosphorus Magnesium Iron TIBC AST ALT Alkaline Phosphatase Lactate Dehydrogenase Total Creatine Kinase C-Reactive Protein Total Protein Albumin 2.8 L Prealbumin CA 19-9 Antigen Folate PTH Intact Urine WBC (Auto) Urine Creatinine 66.0 H Urine Chloride 27.8 L Urine Total Protein 24 H Fluid Glucose Fluid Total Protein Vancomycin Trough Miscellaneous Test Crossmatch 05/13/18 05/14/18 05/14/18 20:00 05:05 05:05 WBC RBC Hgb Hct MCV MCHC RDW Plt Count Lymph % (Auto) Graves % (Auto) Lymph # Graves # Seg Neutrophils % Seg Neuts % (Manual) Lymphocytes % (Manual) Monocytes % (Manual) Seg Neutrophils # Seg Neutrophils # Man Lymphocytes # (Manual) Monocytes # (Manual) PT INR APTT Heparin Anti-Xa Level POC ABG pH POC ABG pCO2 POC ABG pO2 Sodium 132 L 131 L Potassium 5.2 H 5.8 H Chloride 93.0 L 95.6 L Carbon Dioxide 19 L 20 L BUN 74 H 81 H Creatinine 15.0 H 16.6 H Glucose 134 H 127 H POC Glucose Lactic Acid Calcium 8.2 L 7.9 L Phosphorus 6.30 H Magnesium Iron TIBC AST ALT Alkaline Phosphatase Lactate Dehydrogenase Total Creatine Kinase 236 H C-Reactive Protein Total Protein Albumin Prealbumin CA 19-9 Antigen Folate PTH Intact 65.37 H Urine WBC (Auto) Urine Creatinine Urine Chloride Urine Total Protein Fluid Glucose Fluid Total Protein Vancomycin Trough Miscellaneous Test Crossmatch 05/14/18 05/14/18 05/14/18 09:28 10:56 13:29 WBC RBC Hgb Hct MCV MCHC RDW Plt Count Lymph % (Auto) Graves % (Auto) Lymph # Graves # Seg Neutrophils % Seg Neuts % (Manual) Lymphocytes % (Manual) Monocytes % (Manual) Seg Neutrophils # Seg Neutrophils # Man Lymphocytes # (Manual) Monocytes # (Manual) PT INR APTT 38.2 H Heparin Anti-Xa Level POC ABG pH POC ABG pCO2 POC ABG pO2 Sodium Potassium Chloride Carbon Dioxide BUN Creatinine Glucose POC Glucose 127 H 126 H Lactic Acid Calcium Phosphorus Magnesium Iron TIBC AST ALT Alkaline Phosphatase Lactate Dehydrogenase Total Creatine Kinase C-Reactive Protein Total Protein Albumin Prealbumin CA 19-9 Antigen Folate PTH Intact Urine WBC (Auto) Urine Creatinine Urine Chloride Urine Total Protein Fluid Glucose Fluid Total Protein Vancomycin Trough Miscellaneous Test Crossmatch 05/15/18 05/15/18 05/16/18 08:06 08:06 07:02 WBC RBC 2.84 L 2.74 L Hgb 8.5 L 8.5 L Hct 24.2 L 23.5 L MCV MCHC 35 H 36 H RDW Plt Count Lymph % (Auto) Graves % (Auto) 10.4 H 11.0 H Lymph # 1.1 L Graves # 0.9 H Seg Neutrophils % 72.6 H Seg Neuts % (Manual) Lymphocytes % (Manual) Monocytes % (Manual) Seg Neutrophils # Seg Neutrophils # Man Lymphocytes # (Manual) Monocytes # (Manual) PT INR APTT Heparin Anti-Xa Level POC ABG pH POC ABG pCO2 POC ABG pO2 Sodium Potassium Chloride Carbon Dioxide 19 L BUN 66 H Creatinine 12.0 H Glucose 115 H POC Glucose Lactic Acid Calcium 8.1 L Phosphorus Magnesium Iron TIBC AST ALT Alkaline Phosphatase Lactate Dehydrogenase Total Creatine Kinase C-Reactive Protein Total Protein Albumin Prealbumin CA 19-9 Antigen Folate PTH Intact Urine WBC (Auto) Urine Creatinine Urine Chloride Urine Total Protein Fluid Glucose Fluid Total Protein Vancomycin Trough Miscellaneous Test Crossmatch 05/16/18 05/16/18 05/17/18 07:02 07:02 05:08 WBC RBC 2.78 L Hgb 8.2 L Hct 23.9 L MCV MCHC RDW Plt Count Lymph % (Auto) Graves % (Auto) 13.9 H Lymph # Graves # 0.9 H Seg Neutrophils % Seg Neuts % (Manual) Lymphocytes % (Manual) Monocytes % (Manual) Seg Neutrophils # Seg Neutrophils # Man Lymphocytes # (Manual) Monocytes # (Manual) PT INR APTT Heparin Anti-Xa Level POC ABG pH POC ABG pCO2 POC ABG pO2 Sodium Potassium Chloride Carbon Dioxide BUN 28 H Creatinine 2.4 H D Glucose POC Glucose Lactic Acid Calcium 8.3 L Phosphorus Magnesium 1.50 L Iron 24 L TIBC 160 L AST ALT Alkaline Phosphatase Lactate Dehydrogenase Total Creatine Kinase C-Reactive Protein Total Protein Albumin Prealbumin CA 19-9 Antigen Folate 5.39 L PTH Intact Urine WBC (Auto) Urine Creatinine Urine Chloride Urine Total Protein Fluid Glucose Fluid Total Protein Vancomycin Trough Miscellaneous Test Crossmatch 05/17/18 05/18/18 05/18/18 05:08 05:57 05:57 WBC RBC 2.79 L Hgb 8.3 L Hct 24.0 L MCV MCHC 35 H RDW Plt Count Lymph % (Auto) Graves % (Auto) 11.8 H Lymph # Graves # 0.9 H Seg Neutrophils % Seg Neuts % (Manual) Lymphocytes % (Manual) Monocytes % (Manual) Seg Neutrophils # Seg Neutrophils # Man Lymphocytes # (Manual) Monocytes # (Manual) PT INR APTT Heparin Anti-Xa Level POC ABG pH POC ABG pCO2 POC ABG pO2 Sodium Potassium Chloride Carbon Dioxide BUN Creatinine Glucose POC Glucose Lactic Acid Calcium 7.7 L 8.0 L Phosphorus Magnesium 1.60 L Iron TIBC AST ALT Alkaline Phosphatase Lactate Dehydrogenase Total Creatine Kinase C-Reactive Protein Total Protein Albumin Prealbumin CA 19-9 Antigen Folate PTH Intact Urine WBC (Auto) Urine Creatinine Urine Chloride Urine Total Protein Fluid Glucose Fluid Total Protein Vancomycin Trough Miscellaneous Test Crossmatch 05/19/18 05/19/18 05/20/18 05:33 05:33 05:38 WBC RBC 2.95 L Hgb 8.8 L Hct 25.8 L MCV MCHC RDW Plt Count Lymph % (Auto) 10.1 L Graves % (Auto) Lymph # 1.1 L Graves # Seg Neutrophils % 85.2 H Seg Neuts % (Manual) Lymphocytes % (Manual) Monocytes % (Manual) Seg Neutrophils # 9.0 H Seg Neutrophils # Man Lymphocytes # (Manual) Monocytes # (Manual) PT INR APTT Heparin Anti-Xa Level POC ABG pH POC ABG pCO2 POC ABG pO2 Sodium 135 L Potassium Chloride Carbon Dioxide BUN Creatinine Glucose 132 H POC Glucose Lactic Acid Calcium 7.8 L 8.3 L Phosphorus Magnesium 1.40 L Iron TIBC AST ALT Alkaline Phosphatase Lactate Dehydrogenase Total Creatine Kinase C-Reactive Protein Total Protein Albumin Prealbumin CA 19-9 Antigen Folate PTH Intact Urine WBC (Auto) Urine Creatinine Urine Chloride Urine Total Protein Fluid Glucose Fluid Total Protein Vancomycin Trough Miscellaneous Test Crossmatch 05/21/18 05/21/18 05/22/18 04:46 15:30 06:49 WBC 20.0 H RBC 2.70 L Hgb 7.8 L Hct 23.3 L MCV MCHC RDW Plt Count Lymph % (Auto) Graves % (Auto) Lymph # Graves # Seg Neutrophils % Seg Neuts % (Manual) 85.0 H Lymphocytes % (Manual) 4.0 L Monocytes % (Manual) Seg Neutrophils # Seg Neutrophils # Man 17.0 H Lymphocytes # (Manual) 0.8 L Monocytes # (Manual) PT INR APTT Heparin Anti-Xa Level POC ABG pH POC ABG pCO2 POC ABG pO2 Sodium 135 L Potassium 3.5 L Chloride Carbon Dioxide 21 L BUN 22 H Creatinine Glucose POC Glucose Lactic Acid Calcium 8.1 L Phosphorus Magnesium Iron TIBC AST ALT Alkaline Phosphatase Lactate Dehydrogenase Total Creatine Kinase C-Reactive Protein Total Protein Albumin Prealbumin CA 19-9 Antigen Folate PTH Intact Urine WBC (Auto) 28.0 H Urine Creatinine Urine Chloride Urine Total Protein Fluid Glucose Fluid Total Protein Vancomycin Trough Miscellaneous Test Crossmatch 05/22/18 05/22/18 05/23/18 06:49 11:23 09:03 WBC RBC Hgb Hct MCV MCHC RDW Plt Count Lymph % (Auto) Graves % (Auto) Lymph # Graves # Seg Neutrophils % Seg Neuts % (Manual) Lymphocytes % (Manual) Monocytes % (Manual) Seg Neutrophils # Seg Neutrophils # Man Lymphocytes # (Manual) Monocytes # (Manual) PT INR APTT Heparin Anti-Xa Level POC ABG pH POC ABG pCO2 POC ABG pO2 Sodium 134 L Potassium 3.5 L Chloride Carbon Dioxide 21 L BUN 35 H 36 H Creatinine 1.7 H Glucose 107 H POC Glucose Lactic Acid Calcium 7.9 L Phosphorus Magnesium 2.50 H Iron TIBC AST ALT Alkaline Phosphatase Lactate Dehydrogenase Total Creatine Kinase C-Reactive Protein Total Protein Albumin Prealbumin CA 19-9 Antigen Folate PTH Intact Urine WBC (Auto) Urine Creatinine Urine Chloride Urine Total Protein Fluid Glucose Fluid Total Protein Vancomycin Trough Miscellaneous Test Crossmatch See Detail 05/23/18 05/23/18 05/23/18 09:03 09:03 17:34 WBC 26.3 H RBC 3.57 L Hgb 10.4 L Hct 31.1 L D MCV MCHC RDW Plt Count Lymph % (Auto) Graves % (Auto) Lymph # Graves # Seg Neutrophils % Seg Neuts % (Manual) Lymphocytes % (Manual) Monocytes % (Manual) Seg Neutrophils # Seg Neutrophils # Man Lymphocytes # (Manual) Monocytes # (Manual) PT 18.3 H INR 1.43 H APTT 40.0 H Heparin Anti-Xa Level POC ABG pH POC ABG pCO2 POC ABG pO2 Sodium Potassium Chloride Carbon Dioxide BUN Creatinine Glucose POC Glucose 108 H Lactic Acid Calcium Phosphorus Magnesium Iron TIBC AST ALT Alkaline Phosphatase Lactate Dehydrogenase Total Creatine Kinase C-Reactive Protein Total Protein Albumin Prealbumin CA 19-9 Antigen Folate PTH Intact Urine WBC (Auto) Urine Creatinine Urine Chloride Urine Total Protein Fluid Glucose Fluid Total Protein Vancomycin Trough Miscellaneous Test Crossmatch 05/23/18 05/24/18 05/24/18 21:14 04:43 08:04 WBC RBC Hgb Hct MCV MCHC RDW Plt Count Lymph % (Auto) Graves % (Auto) Lymph # Graves # Seg Neutrophils % Seg Neuts % (Manual) Lymphocytes % (Manual) Monocytes % (Manual) Seg Neutrophils # Seg Neutrophils # Man Lymphocytes # (Manual) Monocytes # (Manual) PT INR APTT Heparin Anti-Xa Level POC ABG pH POC ABG pCO2 POC ABG pO2 Sodium 146 H Potassium Chloride 108.6 H Carbon Dioxide BUN 33 H Creatinine Glucose 109 H POC Glucose 110 H 106 H Lactic Acid Calcium 8.3 L Phosphorus Magnesium 2.50 H Iron TIBC AST ALT Alkaline Phosphatase Lactate Dehydrogenase Total Creatine Kinase C-Reactive Protein Total Protein Albumin Prealbumin CA 19-9 Antigen Folate PTH Intact Urine WBC (Auto) Urine Creatinine Urine Chloride Urine Total Protein Fluid Glucose Fluid Total Protein Vancomycin Trough Miscellaneous Test Crossmatch 05/25/18 05/25/18 05/25/18 05:42 05:49 19:50 WBC RBC Hgb Hct MCV MCHC RDW Plt Count Lymph % (Auto) Graves % (Auto) Lymph # Graves # Seg Neutrophils % Seg Neuts % (Manual) Lymphocytes % (Manual) Monocytes % (Manual) Seg Neutrophils # Seg Neutrophils # Man Lymphocytes # (Manual) Monocytes # (Manual) PT INR APTT Heparin Anti-Xa Level POC ABG pH POC ABG pCO2 POC ABG pO2 Sodium 150 H Potassium Chloride 112.5 H Carbon Dioxide BUN 34 H Creatinine Glucose 102 H POC Glucose 107 H Lactic Acid Calcium Phosphorus Magnesium Iron TIBC AST ALT Alkaline Phosphatase Lactate Dehydrogenase Total Creatine Kinase C-Reactive Protein 34.50 H Total Protein Albumin Prealbumin CA 19-9 Antigen Folate PTH Intact Urine WBC (Auto) Urine Creatinine Urine Chloride Urine Total Protein Fluid Glucose Fluid Total Protein Vancomycin Trough Miscellaneous Test Crossmatch 05/25/18 05/25/18 05/25/18 19:50 21:05 22:46 WBC RBC Hgb Hct MCV MCHC RDW Plt Count Lymph % (Auto) Graves % (Auto) Lymph # Graves # Seg Neutrophils % Seg Neuts % (Manual) Lymphocytes % (Manual) Monocytes % (Manual) Seg Neutrophils # Seg Neutrophils # Man Lymphocytes # (Manual) Monocytes # (Manual) PT INR APTT Heparin Anti-Xa Level POC ABG pH 7.483 H POC ABG pCO2 24.0 L POC ABG pO2 72 L Sodium Potassium Chloride Carbon Dioxide BUN Creatinine Glucose POC Glucose Lactic Acid 5.90 H* Calcium Phosphorus Magnesium Iron TIBC AST ALT Alkaline Phosphatase Lactate Dehydrogenase Total Creatine Kinase C-Reactive Protein Total Protein Albumin Prealbumin CA 19-9 Antigen Folate PTH Intact Urine WBC (Auto) Urine Creatinine Urine Chloride Urine Total Protein Fluid Glucose Fluid Total Protein Vancomycin Trough 25.1 H Miscellaneous Test Crossmatch 05/25/18 05/26/18 05/26/18 22:46 00:21 00:51 WBC RBC Hgb Hct MCV MCHC RDW Plt Count Lymph % (Auto) Graves % (Auto) Lymph # Graves # Seg Neutrophils % Seg Neuts % (Manual) Lymphocytes % (Manual) Monocytes % (Manual) Seg Neutrophils # Seg Neutrophils # Man Lymphocytes # (Manual) Monocytes # (Manual) PT INR APTT Heparin Anti-Xa Level POC ABG pH POC ABG pCO2 POC ABG pO2 Sodium Potassium Chloride Carbon Dioxide BUN Creatinine Glucose POC Glucose 133 H Lactic Acid 8.10 H* 6.20 H* Calcium Phosphorus Magnesium Iron TIBC AST ALT Alkaline Phosphatase Lactate Dehydrogenase Total Creatine Kinase C-Reactive Protein Total Protein Albumin Prealbumin CA 19-9 Antigen Folate PTH Intact Urine WBC (Auto) Urine Creatinine Urine Chloride Urine Total Protein Fluid Glucose Fluid Total Protein Vancomycin Trough Miscellaneous Test Crossmatch 05/26/18 05/26/18 05/26/18 01:13 02:24 02:24 WBC 18.7 H RBC Hgb 11.6 L Hct MCV MCHC RDW Plt Count Lymph % (Auto) Graves % (Auto) Lymph # Graves # Seg Neutrophils % Seg Neuts % (Manual) Lymphocytes % (Manual) Monocytes % (Manual) Seg Neutrophils # Seg Neutrophils # Man Lymphocytes # (Manual) Monocytes # (Manual) PT INR APTT Heparin Anti-Xa Level POC ABG pH POC ABG pCO2 POC ABG pO2 Sodium 147 H Potassium 6.2 H* D Chloride 111.9 H Carbon Dioxide 19 L BUN 80 H Creatinine 5.1 H D Glucose 112 H POC Glucose Lactic Acid 5.20 H* Calcium 6.7 L D Phosphorus Magnesium Iron TIBC AST ALT Alkaline Phosphatase Lactate Dehydrogenase Total Creatine Kinase C-Reactive Protein Total Protein Albumin Prealbumin CA 19-9 Antigen Folate PTH Intact Urine WBC (Auto) Urine Creatinine Urine Chloride Urine Total Protein Fluid Glucose Fluid Total Protein Vancomycin Trough Miscellaneous Test Crossmatch 05/26/18 05/26/18 05/26/18 04:20 04:20 05:39 WBC RBC Hgb Hct MCV MCHC RDW Plt Count Lymph % (Auto) Graves % (Auto) Lymph # Graves # Seg Neutrophils % Seg Neuts % (Manual) Lymphocytes % (Manual) Monocytes % (Manual) Seg Neutrophils # Seg Neutrophils # Man Lymphocytes # (Manual) Monocytes # (Manual) PT INR APTT Heparin Anti-Xa Level POC ABG pH POC ABG pCO2 POC ABG pO2 Sodium 150 H Potassium Chloride 110.0 H Carbon Dioxide 19 L BUN 66 H Creatinine Glucose 166 H POC Glucose 187 H Lactic Acid 5.10 H* Calcium 6.9 L Phosphorus 6.70 H D Magnesium Iron TIBC AST ALT Alkaline Phosphatase Lactate Dehydrogenase Total Creatine Kinase C-Reactive Protein Total Protein Albumin Prealbumin CA 19-9 Antigen Folate PTH Intact Urine WBC (Auto) Urine Creatinine Urine Chloride Urine Total Protein Fluid Glucose Fluid Total Protein Vancomycin Trough Miscellaneous Test Crossmatch 05/26/18 05/26/18 05/26/18 06:02 07:29 11:00 WBC RBC Hgb Hct MCV MCHC RDW Plt Count Lymph % (Auto) Graves % (Auto) Lymph # Graves # Seg Neutrophils % Seg Neuts % (Manual) Lymphocytes % (Manual) Monocytes % (Manual) Seg Neutrophils # Seg Neutrophils # Man Lymphocytes # (Manual) Monocytes # (Manual) PT INR APTT Heparin Anti-Xa Level POC ABG pH POC ABG pCO2 28.8 L POC ABG pO2 Sodium Potassium Chloride Carbon Dioxide BUN Creatinine Glucose POC Glucose Lactic Acid 4.80 H* 3.80 H* Calcium Phosphorus Magnesium Iron TIBC AST ALT Alkaline Phosphatase Lactate Dehydrogenase Total Creatine Kinase C-Reactive Protein Total Protein Albumin Prealbumin CA 19-9 Antigen Folate PTH Intact Urine WBC (Auto) Urine Creatinine Urine Chloride Urine Total Protein Fluid Glucose Fluid Total Protein Vancomycin Trough Miscellaneous Test Crossmatch 05/26/18 05/26/18 05/26/18 11:01 12:28 18:00 WBC RBC Hgb Hct MCV MCHC RDW Plt Count Lymph % (Auto) Graves % (Auto) Lymph # Graves # Seg Neutrophils % Seg Neuts % (Manual) Lymphocytes % (Manual) Monocytes % (Manual) Seg Neutrophils # Seg Neutrophils # Man Lymphocytes # (Manual) Monocytes # (Manual) PT INR APTT Heparin Anti-Xa Level POC ABG pH POC ABG pCO2 POC ABG pO2 Sodium 150 H 151 H Potassium 5.3 H D 6.1 H* Chloride 110.3 H 117.0 H Carbon Dioxide 21 L 20 L BUN 75 H 77 H Creatinine 4.3 H D 4.6 H Glucose 161 H POC Glucose 114 H Lactic Acid Calcium 7.5 L 6.7 L Phosphorus Magnesium Iron TIBC AST 1041 H ALT 406 H Alkaline Phosphatase 281 H Lactate Dehydrogenase Total Creatine Kinase C-Reactive Protein Total Protein 4.4 L Albumin 1.3 L Prealbumin CA 19-9 Antigen Folate PTH Intact Urine WBC (Auto) Urine Creatinine Urine Chloride Urine Total Protein Fluid Glucose Fluid Total Protein Vancomycin Trough Miscellaneous Test Crossmatch 05/26/18 05/26/18 05/27/18 18:02 19:17 01:01 WBC 21.7 H RBC 2.70 L Hgb 7.8 L D Hct 24.6 L D MCV MCHC RDW 15.3 H Plt Count Lymph % (Auto) Graves % (Auto) Lymph # Graves # Seg Neutrophils % Seg Neuts % (Manual) 94.0 H Lymphocytes % (Manual) 3.0 L Monocytes % (Manual) Seg Neutrophils # Seg Neutrophils # Man 20.4 H Lymphocytes # (Manual) 0.7 L Monocytes # (Manual) PT INR APTT Heparin Anti-Xa Level POC ABG pH 7.159 L 7.205 L POC ABG pCO2 54.5 H 53.0 H POC ABG pO2 252 H Sodium Potassium Chloride Carbon Dioxide BUN Creatinine Glucose POC Glucose Lactic Acid Calcium Phosphorus Magnesium Iron TIBC AST ALT Alkaline Phosphatase Lactate Dehydrogenase Total Creatine Kinase C-Reactive Protein Total Protein Albumin Prealbumin CA 19-9 Antigen Folate PTH Intact Urine WBC (Auto) Urine Creatinine Urine Chloride Urine Total Protein Fluid Glucose Fluid Total Protein Vancomycin Trough Miscellaneous Test Crossmatch 05/27/18 05/27/18 05/27/18 05:15 05:15 06:11 WBC 24.9 H RBC 2.86 L Hgb 8.1 L Hct 25.9 L MCV MCHC RDW 15.5 H Plt Count Lymph % (Auto) Graves % (Auto) Lymph # Graves # Seg Neutrophils % Seg Neuts % (Manual) Lymphocytes % (Manual) Monocytes % (Manual) Seg Neutrophils # Seg Neutrophils # Man Lymphocytes # (Manual) Monocytes # (Manual) PT INR APTT Heparin Anti-Xa Level POC ABG pH 7.265 L POC ABG pCO2 46.2 H POC ABG pO2 111 H Sodium 149 H Potassium 6.9 H* Chloride 113.5 H Carbon Dioxide BUN 89 H Creatinine 5.2 H Glucose 118 H POC Glucose Lactic Acid Calcium 7.0 L Phosphorus 9.70 H D Magnesium Iron TIBC AST 876 H ALT 408 H Alkaline Phosphatase Lactate Dehydrogenase Total Creatine Kinase C-Reactive Protein Total Protein 5.2 L Albumin 1.5 L Prealbumin CA 19-9 Antigen Folate PTH Intact Urine WBC (Auto) Urine Creatinine Urine Chloride Urine Total Protein Fluid Glucose Fluid Total Protein Vancomycin Trough Miscellaneous Test Crossmatch 05/27/18 05/27/18 05/27/18 08:48 10:22 10:22 WBC RBC Hgb Hct MCV MCHC RDW Plt Count Lymph % (Auto) Graves % (Auto) Lymph # Graves # Seg Neutrophils % Seg Neuts % (Manual) Lymphocytes % (Manual) Monocytes % (Manual) Seg Neutrophils # Seg Neutrophils # Man Lymphocytes # (Manual) Monocytes # (Manual) PT INR APTT Heparin Anti-Xa Level POC ABG pH POC ABG pCO2 POC ABG pO2 Sodium 146 H Potassium 6.1 H* Chloride 108.2 H Carbon Dioxide 21 L BUN 88 H Creatinine 5.6 H Glucose 163 H POC Glucose 164 H Lactic Acid Calcium 6.7 L Phosphorus Magnesium Iron TIBC AST ALT Alkaline Phosphatase Lactate Dehydrogenase Total Creatine Kinase C-Reactive Protein 40.70 H Total Protein Albumin Prealbumin CA 19-9 Antigen Folate PTH Intact Urine WBC (Auto) Urine Creatinine Urine Chloride Urine Total Protein Fluid Glucose Fluid Total Protein Vancomycin Trough Miscellaneous Test Crossmatch 05/27/18 05/27/18 05/27/18 13:02 17:39 23:27 WBC RBC Hgb Hct MCV MCHC RDW Plt Count Lymph % (Auto) Graves % (Auto) Lymph # Graves # Seg Neutrophils % Seg Neuts % (Manual) Lymphocytes % (Manual) Monocytes % (Manual) Seg Neutrophils # Seg Neutrophils # Man Lymphocytes # (Manual) Monocytes # (Manual) PT INR APTT Heparin Anti-Xa Level POC ABG pH POC ABG pCO2 POC ABG pO2 Sodium Potassium Chloride Carbon Dioxide BUN Creatinine Glucose POC Glucose 59 L 132 H Lactic Acid Calcium Phosphorus Magnesium Iron TIBC AST ALT Alkaline Phosphatase Lactate Dehydrogenase Total Creatine Kinase C-Reactive Protein Total Protein Albumin Prealbumin CA 19-9 Antigen Folate PTH Intact Urine WBC (Auto) Urine Creatinine Urine Chloride Urine Total Protein Fluid Glucose Fluid Total Protein Vancomycin Trough Miscellaneous Test Flexitest 1 H Crossmatch 05/27/18 05/28/18 05/28/18 Unknown 04:32 05:00 WBC RBC Hgb Hct MCV MCHC RDW Plt Count Lymph % (Auto) Graves % (Auto) Lymph # Graves # Seg Neutrophils % Seg Neuts % (Manual) Lymphocytes % (Manual) Monocytes % (Manual) Seg Neutrophils # Seg Neutrophils # Man Lymphocytes # (Manual) Monocytes # (Manual) PT INR APTT Heparin Anti-Xa Level POC ABG pH POC ABG pCO2 POC ABG pO2 134 H Sodium Potassium Chloride Carbon Dioxide BUN 69 H Creatinine 4.4 H Glucose 118 H POC Glucose Lactic Acid Calcium 8.0 L D Phosphorus 6.80 H D Magnesium Iron TIBC AST ALT Alkaline Phosphatase Lactate Dehydrogenase Total Creatine Kinase C-Reactive Protein Total Protein Albumin Prealbumin CA 19-9 Antigen Folate PTH Intact Urine WBC (Auto) 120.0 H Urine Creatinine Urine Chloride Urine Total Protein Fluid Glucose Fluid Total Protein Vancomycin Trough Miscellaneous Test Crossmatch 05/28/18 05/28/18 05/28/18 05:00 05:27 13:04 WBC 26.5 H RBC 2.69 L Hgb 7.7 L Hct 23.6 L MCV MCHC RDW Plt Count Lymph % (Auto) Graves % (Auto) Lymph # Graves # Seg Neutrophils % Seg Neuts % (Manual) 96.0 H Lymphocytes % (Manual) 0 L Monocytes % (Manual) Seg Neutrophils # Seg Neutrophils # Man 25.4 H Lymphocytes # (Manual) 0.0 L Monocytes # (Manual) PT INR APTT Heparin Anti-Xa Level POC ABG pH POC ABG pCO2 POC ABG pO2 Sodium Potassium Chloride Carbon Dioxide BUN Creatinine Glucose POC Glucose 128 H 155 H Lactic Acid Calcium Phosphorus Magnesium Iron TIBC AST ALT Alkaline Phosphatase Lactate Dehydrogenase Total Creatine Kinase C-Reactive Protein Total Protein Albumin Prealbumin CA 19-9 Antigen Folate PTH Intact Urine WBC (Auto) Urine Creatinine Urine Chloride Urine Total Protein Fluid Glucose Fluid Total Protein Vancomycin Trough Miscellaneous Test Crossmatch 05/28/18 05/29/18 05/29/18 17:56 03:35 04:00 WBC RBC Hgb Hct MCV MCHC RDW Plt Count Lymph % (Auto) Graves % (Auto) Lymph # Graves # Seg Neutrophils % Seg Neuts % (Manual) Lymphocytes % (Manual) Monocytes % (Manual) Seg Neutrophils # Seg Neutrophils # Man Lymphocytes # (Manual) Monocytes # (Manual) PT INR APTT Heparin Anti-Xa Level POC ABG pH 7.471 H POC ABG pCO2 POC ABG pO2 78 L Sodium Potassium Chloride Carbon Dioxide BUN 50 H Creatinine 3.9 H Glucose POC Glucose 110 H Lactic Acid Calcium 7.7 L Phosphorus Magnesium 1.50 L Iron TIBC AST 218 H ALT 204 H Alkaline Phosphatase Lactate Dehydrogenase Total Creatine Kinase C-Reactive Protein Total Protein 5.4 L Albumin 1.6 L Prealbumin CA 19-9 Antigen Folate PTH Intact Urine WBC (Auto) Urine Creatinine Urine Chloride Urine Total Protein Fluid Glucose Fluid Total Protein Vancomycin Trough Miscellaneous Test Crossmatch 05/29/18 05/29/18 05/30/18 11:51 23:56 04:54 WBC RBC Hgb Hct MCV MCHC RDW Plt Count Lymph % (Auto) Graves % (Auto) Lymph # Graves # Seg Neutrophils % Seg Neuts % (Manual) Lymphocytes % (Manual) Monocytes % (Manual) Seg Neutrophils # Seg Neutrophils # Man Lymphocytes # (Manual) Monocytes # (Manual) PT INR APTT Heparin Anti-Xa Level POC ABG pH POC ABG pCO2 POC ABG pO2 Sodium Potassium Chloride Carbon Dioxide BUN Creatinine Glucose POC Glucose 131 H 119 H 115 H Lactic Acid Calcium Phosphorus Magnesium Iron TIBC AST ALT Alkaline Phosphatase Lactate Dehydrogenase Total Creatine Kinase C-Reactive Protein Total Protein Albumin Prealbumin CA 19-9 Antigen Folate PTH Intact Urine WBC (Auto) Urine Creatinine Urine Chloride Urine Total Protein Fluid Glucose Fluid Total Protein Vancomycin Trough Miscellaneous Test Crossmatch 05/30/18 05/30/18 05/30/18 05:07 05:15 05:15 WBC 16.2 H RBC 2.53 L Hgb 7.4 L Hct 21.9 L MCV MCHC RDW Plt Count Lymph % (Auto) Graves % (Auto) Lymph # Graves # Seg Neutrophils % Seg Neuts % (Manual) Lymphocytes % (Manual) Monocytes % (Manual) Seg Neutrophils # Seg Neutrophils # Man Lymphocytes # (Manual) Monocytes # (Manual) PT INR APTT Heparin Anti-Xa Level POC ABG pH POC ABG pCO2 34.5 L POC ABG pO2 133 H Sodium 135 L Potassium Chloride 97.5 L Carbon Dioxide BUN 69 H Creatinine 5.4 H Glucose 105 H POC Glucose Lactic Acid Calcium 7.5 L Phosphorus 5.30 H D Magnesium Iron TIBC AST ALT Alkaline Phosphatase Lactate Dehydrogenase Total Creatine Kinase C-Reactive Protein Total Protein Albumin Prealbumin CA 19-9 Antigen Folate PTH Intact Urine WBC (Auto) Urine Creatinine Urine Chloride Urine Total Protein Fluid Glucose Fluid Total Protein Vancomycin Trough Miscellaneous Test Crossmatch 05/30/18 05/30/18 05/31/18 12:13 17:10 04:50 WBC 18.7 H RBC 2.86 L Hgb 8.2 L Hct 24.8 L MCV MCHC RDW Plt Count Lymph % (Auto) Graves % (Auto) Lymph # Graves # Seg Neutrophils % Seg Neuts % (Manual) 91.0 H Lymphocytes % (Manual) 2.0 L Monocytes % (Manual) Seg Neutrophils # Seg Neutrophils # Man 17.0 H Lymphocytes # (Manual) 0.4 L Monocytes # (Manual) PT INR APTT Heparin Anti-Xa Level POC ABG pH POC ABG pCO2 POC ABG pO2 Sodium Potassium Chloride Carbon Dioxide BUN Creatinine Glucose POC Glucose 132 H 122 H Lactic Acid Calcium Phosphorus Magnesium Iron TIBC AST ALT Alkaline Phosphatase Lactate Dehydrogenase Total Creatine Kinase C-Reactive Protein Total Protein Albumin Prealbumin CA 19-9 Antigen Folate PTH Intact Urine WBC (Auto) Urine Creatinine Urine Chloride Urine Total Protein Fluid Glucose Fluid Total Protein Vancomycin Trough Miscellaneous Test Crossmatch 05/31/18 05/31/18 05/31/18 04:50 05:45 11:37 WBC RBC Hgb Hct MCV MCHC RDW Plt Count Lymph % (Auto) Graves % (Auto) Lymph # Graves # Seg Neutrophils % Seg Neuts % (Manual) Lymphocytes % (Manual) Monocytes % (Manual) Seg Neutrophils # Seg Neutrophils # Man Lymphocytes # (Manual) Monocytes # (Manual) PT INR APTT Heparin Anti-Xa Level POC ABG pH POC ABG pCO2 POC ABG pO2 Sodium 132 L Potassium Chloride 92.4 L Carbon Dioxide BUN 77 H Creatinine 5.9 H Glucose POC Glucose 111 H 136 H Lactic Acid Calcium 7.3 L Phosphorus 6.40 H D Magnesium Iron TIBC AST ALT Alkaline Phosphatase Lactate Dehydrogenase Total Creatine Kinase C-Reactive Protein Total Protein Albumin Prealbumin CA 19-9 Antigen Folate PTH Intact Urine WBC (Auto) Urine Creatinine Urine Chloride Urine Total Protein Fluid Glucose Fluid Total Protein Vancomycin Trough Miscellaneous Test Crossmatch 05/31/18 06/01/18 06/01/18 17:52 00:09 04:00 WBC RBC Hgb Hct MCV MCHC RDW Plt Count Lymph % (Auto) Graves % (Auto) Lymph # Graves # Seg Neutrophils % Seg Neuts % (Manual) Lymphocytes % (Manual) Monocytes % (Manual) Seg Neutrophils # Seg Neutrophils # Man Lymphocytes # (Manual) Monocytes # (Manual) PT INR APTT Heparin Anti-Xa Level POC ABG pH POC ABG pCO2 POC ABG pO2 Sodium Potassium Chloride 97.5 L Carbon Dioxide BUN 49 H Creatinine 4.2 H Glucose 104 H POC Glucose 115 H 114 H Lactic Acid Calcium 7.3 L Phosphorus 4.70 H D Magnesium Iron TIBC AST ALT Alkaline Phosphatase Lactate Dehydrogenase Total Creatine Kinase C-Reactive Protein Total Protein Albumin Prealbumin CA 19-9 Antigen Folate PTH Intact Urine WBC (Auto) Urine Creatinine Urine Chloride Urine Total Protein Fluid Glucose Fluid Total Protein Vancomycin Trough Miscellaneous Test Crossmatch 06/01/18 06/01/18 06/02/18 11:10 17:56 00:15 WBC RBC Hgb Hct MCV MCHC RDW Plt Count Lymph % (Auto) Graves % (Auto) Lymph # Graves # Seg Neutrophils % Seg Neuts % (Manual) Lymphocytes % (Manual) Monocytes % (Manual) Seg Neutrophils # Seg Neutrophils # Man Lymphocytes # (Manual) Monocytes # (Manual) PT INR APTT Heparin Anti-Xa Level POC ABG pH POC ABG pCO2 POC ABG pO2 Sodium Potassium Chloride Carbon Dioxide BUN Creatinine Glucose POC Glucose 123 H 126 H 135 H Lactic Acid Calcium Phosphorus Magnesium Iron TIBC AST ALT Alkaline Phosphatase Lactate Dehydrogenase Total Creatine Kinase C-Reactive Protein Total Protein Albumin Prealbumin CA 19-9 Antigen Folate PTH Intact Urine WBC (Auto) Urine Creatinine Urine Chloride Urine Total Protein Fluid Glucose Fluid Total Protein Vancomycin Trough Miscellaneous Test Crossmatch 06/02/18 06/02/18 06/02/18 05:23 12:42 13:05 WBC RBC Hgb Hct MCV MCHC RDW Plt Count Lymph % (Auto) Graves % (Auto) Lymph # Graves # Seg Neutrophils % Seg Neuts % (Manual) Lymphocytes % (Manual) Monocytes % (Manual) Seg Neutrophils # Seg Neutrophils # Man Lymphocytes # (Manual) Monocytes # (Manual) PT 17.1 H INR 1.34 H APTT Heparin Anti-Xa Level POC ABG pH POC ABG pCO2 POC ABG pO2 Sodium Potassium Chloride Carbon Dioxide BUN Creatinine Glucose POC Glucose 135 H 142 H Lactic Acid Calcium Phosphorus Magnesium Iron TIBC AST ALT Alkaline Phosphatase Lactate Dehydrogenase Total Creatine Kinase C-Reactive Protein Total Protein Albumin Prealbumin CA 19-9 Antigen Folate PTH Intact Urine WBC (Auto) Urine Creatinine Urine Chloride Urine Total Protein Fluid Glucose Fluid Total Protein Vancomycin Trough Miscellaneous Test Crossmatch 06/02/18 06/02/18 06/03/18 Unknown Unknown 00:54 WBC 20.8 H RBC 2.67 L Hgb 7.7 L Hct 23.0 L MCV MCHC RDW Plt Count 500 H Lymph % (Auto) Graves % (Auto) Lymph # Graves # Seg Neutrophils % Seg Neuts % (Manual) Lymphocytes % (Manual) Monocytes % (Manual) Seg Neutrophils # Seg Neutrophils # Man Lymphocytes # (Manual) Monocytes # (Manual) PT INR APTT Heparin Anti-Xa Level POC ABG pH POC ABG pCO2 POC ABG pO2 Sodium 136 L Potassium 3.5 L Chloride 96.9 L Carbon Dioxide BUN 62 H Creatinine 4.9 H Glucose 133 H POC Glucose 125 H Lactic Acid Calcium 7.2 L Phosphorus 5.00 H Magnesium Iron TIBC AST 46 H ALT 66 H Alkaline Phosphatase Lactate Dehydrogenase Total Creatine Kinase C-Reactive Protein Total Protein 5.7 L Albumin 1.5 L Prealbumin CA 19-9 Antigen Folate PTH Intact Urine WBC (Auto) Urine Creatinine Urine Chloride Urine Total Protein Fluid Glucose Fluid Total Protein Vancomycin Trough Miscellaneous Test Crossmatch 06/03/18 06/03/18 06/03/18 03:31 09:18 09:18 WBC RBC Hgb Hct MCV MCHC RDW Plt Count Lymph % (Auto) Graves % (Auto) Lymph # Graves # Seg Neutrophils % Seg Neuts % (Manual) Lymphocytes % (Manual) Monocytes % (Manual) Seg Neutrophils # Seg Neutrophils # Man Lymphocytes # (Manual) Monocytes # (Manual) PT 17.1 H INR 1.34 H APTT Heparin Anti-Xa Level POC ABG pH POC ABG pCO2 POC ABG pO2 Sodium 136 L Potassium Chloride Carbon Dioxide BUN 41 H Creatinine 3.4 H Glucose 129 H POC Glucose Lactic Acid Calcium 7.4 L Phosphorus Magnesium Iron TIBC AST ALT Alkaline Phosphatase Lactate Dehydrogenase Total Creatine Kinase C-Reactive Protein 11.10 H Total Protein Albumin Prealbumin CA 19-9 Antigen Folate PTH Intact Urine WBC (Auto) Urine Creatinine Urine Chloride Urine Total Protein Fluid Glucose Fluid Total Protein Vancomycin Trough Miscellaneous Test Crossmatch 06/03/18 06/03/18 06/03/18 16:07 21:18 Unknown WBC RBC Hgb Hct MCV MCHC RDW Plt Count Lymph % (Auto) Graves % (Auto) Lymph # Graves # Seg Neutrophils % Seg Neuts % (Manual) Lymphocytes % (Manual) Monocytes % (Manual) Seg Neutrophils # Seg Neutrophils # Man Lymphocytes # (Manual) Monocytes # (Manual) PT INR APTT Heparin Anti-Xa Level POC ABG pH POC ABG pCO2 POC ABG pO2 Sodium Potassium Chloride Carbon Dioxide BUN Creatinine Glucose POC Glucose 144 H 128 H Lactic Acid Calcium Phosphorus Magnesium Iron TIBC AST ALT Alkaline Phosphatase Lactate Dehydrogenase Total Creatine Kinase C-Reactive Protein Total Protein Albumin Prealbumin CA 19-9 Antigen Folate PTH Intact Urine WBC (Auto) Urine Creatinine Urine Chloride Urine Total Protein Fluid Glucose 10 L Fluid Total Protein 3.7 L Vancomycin Trough Miscellaneous Test Crossmatch 06/04/18 06/04/18 06/04/18 04:31 06:14 11:38 WBC RBC Hgb Hct MCV MCHC RDW Plt Count Lymph % (Auto) Graves % (Auto) Lymph # Graves # Seg Neutrophils % Seg Neuts % (Manual) Lymphocytes % (Manual) Monocytes % (Manual) Seg Neutrophils # Seg Neutrophils # Man Lymphocytes # (Manual) Monocytes # (Manual) PT INR APTT Heparin Anti-Xa Level POC ABG pH POC ABG pCO2 POC ABG pO2 Sodium Potassium Chloride Carbon Dioxide BUN 55 H Creatinine 3.7 H Glucose 151 H POC Glucose 145 H 129 H Lactic Acid Calcium 7.8 L Phosphorus 4.60 H Magnesium Iron TIBC AST ALT Alkaline Phosphatase Lactate Dehydrogenase Total Creatine Kinase C-Reactive Protein Total Protein Albumin Prealbumin CA 19-9 Antigen Folate PTH Intact Urine WBC (Auto) Urine Creatinine Urine Chloride Urine Total Protein Fluid Glucose Fluid Total Protein Vancomycin Trough Miscellaneous Test Crossmatch 06/04/18 06/04/18 06/04/18 17:09 20:00 21:29 WBC RBC Hgb 8.8 L Hct 27.3 L MCV MCHC RDW Plt Count Lymph % (Auto) Graves % (Auto) Lymph # Graves # Seg Neutrophils % Seg Neuts % (Manual) Lymphocytes % (Manual) Monocytes % (Manual) Seg Neutrophils # Seg Neutrophils # Man Lymphocytes # (Manual) Monocytes # (Manual) PT INR APTT Heparin Anti-Xa Level POC ABG pH POC ABG pCO2 POC ABG pO2 Sodium Potassium Chloride Carbon Dioxide BUN Creatinine Glucose POC Glucose 142 H 130 H Lactic Acid Calcium Phosphorus Magnesium Iron TIBC AST ALT Alkaline Phosphatase Lactate Dehydrogenase Total Creatine Kinase C-Reactive Protein Total Protein Albumin Prealbumin CA 19-9 Antigen Folate PTH Intact Urine WBC (Auto) Urine Creatinine Urine Chloride Urine Total Protein Fluid Glucose Fluid Total Protein Vancomycin Trough Miscellaneous Test Crossmatch 06/05/18 06/05/18 06/05/18 06:30 07:00 07:00 WBC 19.3 H RBC 2.94 L Hgb 8.3 L Hct 25.6 L MCV MCHC RDW 15.7 H Plt Count 568 H Lymph % (Auto) 4.7 L Graves % (Auto) Lymph # 0.9 L Graves # 1.1 H Seg Neutrophils % 88.9 H Seg Neuts % (Manual) Lymphocytes % (Manual) Monocytes % (Manual) Seg Neutrophils # 17.2 H Seg Neutrophils # Man Lymphocytes # (Manual) Monocytes # (Manual) PT INR APTT Heparin Anti-Xa Level POC ABG pH POC ABG pCO2 POC ABG pO2 Sodium Potassium 3.4 L D Chloride Carbon Dioxide BUN 67 H Creatinine 3.6 H Glucose 145 H POC Glucose 153 H Lactic Acid Calcium 7.9 L Phosphorus 4.60 H Magnesium Iron TIBC AST ALT Alkaline Phosphatase Lactate Dehydrogenase Total Creatine Kinase C-Reactive Protein Total Protein Albumin Prealbumin CA 19-9 Antigen Folate PTH Intact Urine WBC (Auto) Urine Creatinine Urine Chloride Urine Total Protein Fluid Glucose Fluid Total Protein Vancomycin Trough Miscellaneous Test Crossmatch 06/05/18 06/05/18 06/06/18 12:10 16:01 06:39 WBC RBC Hgb Hct MCV MCHC RDW Plt Count Lymph % (Auto) Graves % (Auto) Lymph # Graves # Seg Neutrophils % Seg Neuts % (Manual) Lymphocytes % (Manual) Monocytes % (Manual) Seg Neutrophils # Seg Neutrophils # Man Lymphocytes # (Manual) Monocytes # (Manual) PT INR APTT Heparin Anti-Xa Level POC ABG pH POC ABG pCO2 POC ABG pO2 Sodium Potassium Chloride Carbon Dioxide BUN Creatinine Glucose POC Glucose 150 H 129 H 131 H Lactic Acid Calcium Phosphorus Magnesium Iron TIBC AST ALT Alkaline Phosphatase Lactate Dehydrogenase Total Creatine Kinase C-Reactive Protein Total Protein Albumin Prealbumin CA 19-9 Antigen Folate PTH Intact Urine WBC (Auto) Urine Creatinine Urine Chloride Urine Total Protein Fluid Glucose Fluid Total Protein Vancomycin Trough Miscellaneous Test Crossmatch 06/06/18 06/06/18 06/06/18 07:14 07:14 07:14 WBC 16.5 H RBC 2.84 L Hgb 8.1 L Hct 25.2 L MCV MCHC RDW 16.4 H Plt Count 526 H Lymph % (Auto) 6.5 L Graves % (Auto) Lymph # 1.1 L Graves # 1.2 H Seg Neutrophils % 85.3 H Seg Neuts % (Manual) Lymphocytes % (Manual) Monocytes % (Manual) Seg Neutrophils # 14.1 H Seg Neutrophils # Man Lymphocytes # (Manual) Monocytes # (Manual) PT INR APTT Heparin Anti-Xa Level POC ABG pH POC ABG pCO2 POC ABG pO2 Sodium Potassium Chloride 109.1 H Carbon Dioxide 21 L BUN 76 H Creatinine 3.5 H Glucose 111 H POC Glucose Lactic Acid Calcium 8.1 L Phosphorus Magnesium Iron TIBC AST ALT Alkaline Phosphatase Lactate Dehydrogenase Total Creatine Kinase C-Reactive Protein 4.70 H Total Protein Albumin Prealbumin CA 19-9 Antigen Folate PTH Intact Urine WBC (Auto) Urine Creatinine Urine Chloride Urine Total Protein Fluid Glucose Fluid Total Protein Vancomycin Trough Miscellaneous Test Crossmatch 06/06/18 06/06/18 06/06/18 11:15 18:00 23:58 WBC RBC Hgb Hct MCV MCHC RDW Plt Count Lymph % (Auto) Graves % (Auto) Lymph # Graves # Seg Neutrophils % Seg Neuts % (Manual) Lymphocytes % (Manual) Monocytes % (Manual) Seg Neutrophils # Seg Neutrophils # Man Lymphocytes # (Manual) Monocytes # (Manual) PT INR APTT Heparin Anti-Xa Level POC ABG pH POC ABG pCO2 POC ABG pO2 Sodium Potassium Chloride Carbon Dioxide BUN Creatinine Glucose POC Glucose 127 H 130 H 114 H Lactic Acid Calcium Phosphorus Magnesium Iron TIBC AST ALT Alkaline Phosphatase Lactate Dehydrogenase Total Creatine Kinase C-Reactive Protein Total Protein Albumin Prealbumin CA 19-9 Antigen Folate PTH Intact Urine WBC (Auto) Urine Creatinine Urine Chloride Urine Total Protein Fluid Glucose Fluid Total Protein Vancomycin Trough Miscellaneous Test Crossmatch 06/07/18 06/07/18 06/07/18 05:45 05:45 05:54 WBC 15.5 H RBC 2.60 L Hgb 7.4 L Hct 23.1 L MCV MCHC RDW 16.5 H Plt Count 506 H Lymph % (Auto) 5.3 L Graves % (Auto) Lymph # 0.8 L Graves # 1.0 H Seg Neutrophils % 86.6 H Seg Neuts % (Manual) Lymphocytes % (Manual) Monocytes % (Manual) Seg Neutrophils # 13.4 H Seg Neutrophils # Man Lymphocytes # (Manual) Monocytes # (Manual) PT INR APTT Heparin Anti-Xa Level POC ABG pH POC ABG pCO2 POC ABG pO2 Sodium Potassium Chloride 108.4 H Carbon Dioxide BUN 84 H Creatinine 3.5 H Glucose 119 H POC Glucose 114 H Lactic Acid Calcium 8.1 L Phosphorus 5.10 H Magnesium Iron TIBC AST ALT Alkaline Phosphatase Lactate Dehydrogenase Total Creatine Kinase C-Reactive Protein Total Protein Albumin Prealbumin CA 19-9 Antigen Folate PTH Intact Urine WBC (Auto) Urine Creatinine Urine Chloride Urine Total Protein Fluid Glucose Fluid Total Protein Vancomycin Trough Miscellaneous Test Crossmatch 06/07/18 06/08/18 06/08/18 12:15 05:05 05:24 WBC RBC Hgb Hct MCV MCHC RDW Plt Count Lymph % (Auto) Graves % (Auto) Lymph # Graves # Seg Neutrophils % Seg Neuts % (Manual) Lymphocytes % (Manual) Monocytes % (Manual) Seg Neutrophils # Seg Neutrophils # Man Lymphocytes # (Manual) Monocytes # (Manual) PT INR APTT Heparin Anti-Xa Level POC ABG pH POC ABG pCO2 POC ABG pO2 Sodium 148 H Potassium Chloride 112.4 H Carbon Dioxide BUN 89 H Creatinine 3.4 H Glucose 120 H POC Glucose 148 H 115 H Lactic Acid Calcium 7.9 L Phosphorus Magnesium Iron TIBC AST ALT Alkaline Phosphatase Lactate Dehydrogenase Total Creatine Kinase C-Reactive Protein Total Protein Albumin Prealbumin CA 19-9 Antigen Folate PTH Intact Urine WBC (Auto) Urine Creatinine Urine Chloride Urine Total Protein Fluid Glucose Fluid Total Protein Vancomycin Trough Miscellaneous Test Crossmatch 06/08/18 06/08/18 06/08/18 21:36 21:43 21:43 WBC RBC 2.98 L Hgb 8.8 L Hct 26.6 L MCV MCHC RDW 16.7 H Plt Count 463 H Lymph % (Auto) 7.9 L Graves % (Auto) Lymph # 0.8 L Graves # Seg Neutrophils % 84.8 H Seg Neuts % (Manual) Lymphocytes % (Manual) Monocytes % (Manual) Seg Neutrophils # 8.6 H Seg Neutrophils # Man Lymphocytes # (Manual) Monocytes # (Manual) PT INR APTT Heparin Anti-Xa Level POC ABG pH POC ABG pCO2 POC ABG pO2 Sodium Potassium Chloride Carbon Dioxide BUN Creatinine Glucose POC Glucose Lactic Acid Calcium Phosphorus Magnesium Iron TIBC AST ALT Alkaline Phosphatase Lactate Dehydrogenase 297 H Total Creatine Kinase C-Reactive Protein Total Protein Albumin Prealbumin CA 19-9 Antigen 57 H Folate PTH Intact Urine WBC (Auto) Urine Creatinine Urine Chloride Urine Total Protein Fluid Glucose Fluid Total Protein Vancomycin Trough Miscellaneous Test Crossmatch 06/09/18 06/09/18 06/09/18 00:05 05:34 05:50 WBC RBC Hgb Hct MCV MCHC RDW Plt Count Lymph % (Auto) Graves % (Auto) Lymph # Graves # Seg Neutrophils % Seg Neuts % (Manual) Lymphocytes % (Manual) Monocytes % (Manual) Seg Neutrophils # Seg Neutrophils # Man Lymphocytes # (Manual) Monocytes # (Manual) PT INR APTT Heparin Anti-Xa Level POC ABG pH POC ABG pCO2 POC ABG pO2 Sodium 153 H Potassium Chloride 117.3 H Carbon Dioxide BUN 84 H Creatinine 3.2 H Glucose 117 H POC Glucose 140 H 146 H Lactic Acid Calcium 7.9 L Phosphorus Magnesium Iron TIBC AST ALT Alkaline Phosphatase Lactate Dehydrogenase Total Creatine Kinase C-Reactive Protein Total Protein Albumin Prealbumin CA 19-9 Antigen Folate PTH Intact Urine WBC (Auto) Urine Creatinine Urine Chloride Urine Total Protein Fluid Glucose Fluid Total Protein Vancomycin Trough Miscellaneous Test Crossmatch 06/09/18 06/09/18 06/09/18 05:50 07:37 10:34 WBC RBC 2.32 L Hgb 6.8 L Hct 20.7 L MCV MCHC RDW 16.7 H Plt Count Lymph % (Auto) Graves % (Auto) Lymph # Graves # Seg Neutrophils % Seg Neuts % (Manual) Lymphocytes % (Manual) Monocytes % (Manual) Seg Neutrophils # Seg Neutrophils # Man Lymphocytes # (Manual) Monocytes # (Manual) PT INR APTT Heparin Anti-Xa Level POC ABG pH POC ABG pCO2 POC ABG pO2 Sodium 149 H Potassium Chloride 114.6 H Carbon Dioxide BUN 84 H Creatinine 3.1 H Glucose 137 H POC Glucose Lactic Acid Calcium 7.7 L Phosphorus Magnesium Iron TIBC AST ALT Alkaline Phosphatase Lactate Dehydrogenase Total Creatine Kinase C-Reactive Protein Total Protein Albumin Prealbumin CA 19-9 Antigen Folate PTH Intact Urine WBC (Auto) Urine Creatinine Urine Chloride Urine Total Protein Fluid Glucose Fluid Total Protein Vancomycin Trough Miscellaneous Test Flexitest 1 H Crossmatch 06/09/18 06/09/18 06/09/18 10:41 11:56 13:24 WBC RBC 2.43 L Hgb 7.2 L Hct 21.6 L MCV MCHC RDW 16.8 H Plt Count Lymph % (Auto) Graves % (Auto) Lymph # Graves # Seg Neutrophils % Seg Neuts % (Manual) Lymphocytes % (Manual) Monocytes % (Manual) Seg Neutrophils # Seg Neutrophils # Man Lymphocytes # (Manual) Monocytes # (Manual) PT INR APTT Heparin Anti-Xa Level POC ABG pH POC ABG pCO2 POC ABG pO2 Sodium Potassium Chloride Carbon Dioxide BUN Creatinine Glucose POC Glucose 141 H Lactic Acid Calcium Phosphorus Magnesium Iron TIBC AST ALT Alkaline Phosphatase Lactate Dehydrogenase Total Creatine Kinase C-Reactive Protein Total Protein Albumin Prealbumin CA 19-9 Antigen Folate PTH Intact Urine WBC (Auto) Urine Creatinine Urine Chloride Urine Total Protein Fluid Glucose Fluid Total Protein Vancomycin Trough Miscellaneous Test Crossmatch See Detail 06/09/18 06/09/18 06/10/18 18:18 23:13 05:26 WBC RBC Hgb Hct MCV MCHC RDW Plt Count Lymph % (Auto) Graves % (Auto) Lymph # Graves # Seg Neutrophils % Seg Neuts % (Manual) Lymphocytes % (Manual) Monocytes % (Manual) Seg Neutrophils # Seg Neutrophils # Man Lymphocytes # (Manual) Monocytes # (Manual) PT INR APTT Heparin Anti-Xa Level POC ABG pH POC ABG pCO2 POC ABG pO2 Sodium 148 H Potassium Chloride 114.7 H Carbon Dioxide 21 L BUN 79 H Creatinine 3.2 H Glucose 121 H POC Glucose 156 H 163 H Lactic Acid Calcium 7.8 L Phosphorus Magnesium 1.60 L Iron TIBC AST ALT Alkaline Phosphatase Lactate Dehydrogenase Total Creatine Kinase C-Reactive Protein Total Protein Albumin Prealbumin CA 19-9 Antigen Folate PTH Intact Urine WBC (Auto) Urine Creatinine Urine Chloride Urine Total Protein Fluid Glucose Fluid Total Protein Vancomycin Trough Miscellaneous Test Crossmatch 06/10/18 06/10/18 06/10/18 05:26 05:31 17:15 WBC 11.1 H RBC 3.07 L Hgb 9.1 L Hct 27.6 L D MCV MCHC RDW 17.4 H Plt Count Lymph % (Auto) Graves % (Auto) Lymph # Graves # Seg Neutrophils % Seg Neuts % (Manual) Lymphocytes % (Manual) Monocytes % (Manual) Seg Neutrophils # Seg Neutrophils # Man Lymphocytes # (Manual) Monocytes # (Manual) PT INR APTT Heparin Anti-Xa Level POC ABG pH POC ABG pCO2 POC ABG pO2 Sodium Potassium Chloride Carbon Dioxide BUN Creatinine Glucose POC Glucose 128 H Lactic Acid Calcium Phosphorus Magnesium Iron TIBC AST ALT Alkaline Phosphatase Lactate Dehydrogenase Total Creatine Kinase C-Reactive Protein 3.60 H Total Protein Albumin Prealbumin CA 19-9 Antigen Folate PTH Intact Urine WBC (Auto) Urine Creatinine Urine Chloride Urine Total Protein Fluid Glucose Fluid Total Protein Vancomycin Trough Miscellaneous Test Crossmatch 06/11/18 06/11/18 06/11/18 01:13 05:41 05:41 WBC 14.6 H RBC 3.40 L Hgb 9.8 L Hct 30.7 L MCV MCHC RDW 18.1 H Plt Count Lymph % (Auto) Graves % (Auto) Lymph # Graves # Seg Neutrophils % Seg Neuts % (Manual) Lymphocytes % (Manual) Monocytes % (Manual) Seg Neutrophils # Seg Neutrophils # Man Lymphocytes # (Manual) Monocytes # (Manual) PT INR APTT Heparin Anti-Xa Level POC ABG pH POC ABG pCO2 POC ABG pO2 Sodium Potassium Chloride 110.8 H Carbon Dioxide 18 L BUN 77 H Creatinine 3.0 H Glucose 116 H POC Glucose 126 H Lactic Acid Calcium 7.9 L Phosphorus Magnesium Iron TIBC AST ALT Alkaline Phosphatase Lactate Dehydrogenase Total Creatine Kinase C-Reactive Protein Total Protein Albumin Prealbumin CA 19-9 Antigen Folate PTH Intact Urine WBC (Auto) Urine Creatinine Urine Chloride Urine Total Protein Fluid Glucose Fluid Total Protein Vancomycin Trough Miscellaneous Test Crossmatch 06/11/18 06/11/18 06/11/18 06:20 07:41 07:41 WBC RBC Hgb Hct MCV MCHC RDW Plt Count Lymph % (Auto) Graves % (Auto) Lymph # Graves # Seg Neutrophils % Seg Neuts % (Manual) Lymphocytes % (Manual) Monocytes % (Manual) Seg Neutrophils # Seg Neutrophils # Man Lymphocytes # (Manual) Monocytes # (Manual) PT INR APTT Heparin Anti-Xa Level POC ABG pH POC ABG pCO2 POC ABG pO2 Sodium Potassium Chloride Carbon Dioxide BUN Creatinine Glucose POC Glucose 136 H Lactic Acid Calcium Phosphorus Magnesium Iron TIBC AST ALT Alkaline Phosphatase Lactate Dehydrogenase Total Creatine Kinase C-Reactive Protein Total Protein Albumin Prealbumin CA 19-9 Antigen Folate PTH Intact Urine WBC (Auto) 10.0 H Urine Creatinine 41.2 H Urine Chloride 49.2 L Urine Total Protein 142 H Fluid Glucose Fluid Total Protein Vancomycin Trough Miscellaneous Test Crossmatch 06/11/18 06/12/18 06/12/18 18:35 00:34 04:12 WBC RBC 3.18 L Hgb 9.5 L Hct 28.7 L MCV MCHC RDW 18.5 H Plt Count Lymph % (Auto) 8.1 L Graves % (Auto) Lymph # 0.9 L Graves # Seg Neutrophils % 84.6 H Seg Neuts % (Manual) Lymphocytes % (Manual) Monocytes % (Manual) Seg Neutrophils # 9.1 H Seg Neutrophils # Man Lymphocytes # (Manual) Monocytes # (Manual) PT INR APTT Heparin Anti-Xa Level POC ABG pH POC ABG pCO2 POC ABG pO2 Sodium Potassium Chloride Carbon Dioxide BUN Creatinine Glucose POC Glucose 125 H 129 H Lactic Acid Calcium Phosphorus Magnesium Iron TIBC AST ALT Alkaline Phosphatase Lactate Dehydrogenase Total Creatine Kinase C-Reactive Protein Total Protein Albumin Prealbumin CA 19-9 Antigen Folate PTH Intact Urine WBC (Auto) Urine Creatinine Urine Chloride Urine Total Protein Fluid Glucose Fluid Total Protein Vancomycin Trough Miscellaneous Test Crossmatch 06/12/18 06/12/18 06/12/18 04:12 06:30 11:43 WBC RBC Hgb Hct MCV MCHC RDW Plt Count Lymph % (Auto) Graves % (Auto) Lymph # Graves # Seg Neutrophils % Seg Neuts % (Manual) Lymphocytes % (Manual) Monocytes % (Manual) Seg Neutrophils # Seg Neutrophils # Man Lymphocytes # (Manual) Monocytes # (Manual) PT INR APTT Heparin Anti-Xa Level POC ABG pH POC ABG pCO2 POC ABG pO2 Sodium Potassium Chloride 108.5 H Carbon Dioxide 21 L BUN 72 H Creatinine 3.0 H Glucose 122 H POC Glucose 129 H 126 H Lactic Acid Calcium 7.8 L Phosphorus Magnesium Iron TIBC AST 45 H ALT Alkaline Phosphatase 200 H Lactate Dehydrogenase Total Creatine Kinase 34 L C-Reactive Protein Total Protein Albumin 1.7 L Prealbumin CA 19-9 Antigen Folate PTH Intact Urine WBC (Auto) Urine Creatinine Urine Chloride Urine Total Protein Fluid Glucose Fluid Total Protein Vancomycin Trough Miscellaneous Test Crossmatch 06/12/18 06/12/18 06/13/18 16:00 23:56 03:44 WBC RBC Hgb Hct MCV MCHC RDW Plt Count Lymph % (Auto) Graves % (Auto) Lymph # Graves # Seg Neutrophils % Seg Neuts % (Manual) Lymphocytes % (Manual) Monocytes % (Manual) Seg Neutrophils # Seg Neutrophils # Man Lymphocytes # (Manual) Monocytes # (Manual) PT INR APTT Heparin Anti-Xa Level POC ABG pH POC ABG pCO2 POC ABG pO2 Sodium Potassium Chloride Carbon Dioxide BUN Creatinine Glucose POC Glucose 123 H 128 H 121 H Lactic Acid Calcium Phosphorus Magnesium Iron TIBC AST ALT Alkaline Phosphatase Lactate Dehydrogenase Total Creatine Kinase C-Reactive Protein Total Protein Albumin Prealbumin CA 19-9 Antigen Folate PTH Intact Urine WBC (Auto) Urine Creatinine Urine Chloride Urine Total Protein Fluid Glucose Fluid Total Protein Vancomycin Trough Miscellaneous Test Crossmatch 06/13/18 06/13/18 06/14/18 05:59 11:29 01:08 WBC RBC Hgb Hct MCV MCHC RDW Plt Count Lymph % (Auto) Graves % (Auto) Lymph # Graves # Seg Neutrophils % Seg Neuts % (Manual) Lymphocytes % (Manual) Monocytes % (Manual) Seg Neutrophils # Seg Neutrophils # Man Lymphocytes # (Manual) Monocytes # (Manual) PT INR APTT Heparin Anti-Xa Level POC ABG pH POC ABG pCO2 POC ABG pO2 Sodium 134 L Potassium Chloride Carbon Dioxide 20 L BUN 69 H Creatinine 2.9 H Glucose 113 H POC Glucose 124 H 128 H Lactic Acid Calcium 7.8 L Phosphorus Magnesium Iron TIBC AST ALT Alkaline Phosphatase Lactate Dehydrogenase Total Creatine Kinase C-Reactive Protein Total Protein Albumin Prealbumin CA 19-9 Antigen Folate PTH Intact Urine WBC (Auto) Urine Creatinine Urine Chloride Urine Total Protein Fluid Glucose Fluid Total Protein Vancomycin Trough Miscellaneous Test Crossmatch 06/14/18 06/14/18 06/14/18 06:42 06:42 09:50 WBC 11.3 H RBC 3.02 L Hgb 8.8 L Hct 27.3 L MCV MCHC RDW 18.6 H Plt Count Lymph % (Auto) Graves % (Auto) Lymph # Graves # Seg Neutrophils % Seg Neuts % (Manual) Lymphocytes % (Manual) Monocytes % (Manual) Seg Neutrophils # Seg Neutrophils # Man Lymphocytes # (Manual) Monocytes # (Manual) PT 16.3 H INR 1.24 H APTT Heparin Anti-Xa Level POC ABG pH POC ABG pCO2 POC ABG pO2 Sodium 132 L Potassium Chloride Carbon Dioxide 19 L BUN 71 H Creatinine 3.1 H Glucose POC Glucose Lactic Acid Calcium 7.8 L Phosphorus Magnesium Iron TIBC AST ALT Alkaline Phosphatase Lactate Dehydrogenase Total Creatine Kinase C-Reactive Protein Total Protein Albumin Prealbumin CA 19-9 Antigen Folate PTH Intact Urine WBC (Auto) Urine Creatinine Urine Chloride Urine Total Protein Fluid Glucose Fluid Total Protein Vancomycin Trough Miscellaneous Test Crossmatch 06/14/18 06/14/18 06/15/18 12:31 17:04 01:18 WBC RBC Hgb Hct MCV MCHC RDW Plt Count Lymph % (Auto) Graves % (Auto) Lymph # Graves # Seg Neutrophils % Seg Neuts % (Manual) Lymphocytes % (Manual) Monocytes % (Manual) Seg Neutrophils # Seg Neutrophils # Man Lymphocytes # (Manual) Monocytes # (Manual) PT INR APTT Heparin Anti-Xa Level POC ABG pH POC ABG pCO2 POC ABG pO2 Sodium Potassium Chloride Carbon Dioxide BUN Creatinine Glucose POC Glucose 125 H 109 H 124 H Lactic Acid Calcium Phosphorus Magnesium Iron TIBC AST ALT Alkaline Phosphatase Lactate Dehydrogenase Total Creatine Kinase C-Reactive Protein Total Protein Albumin Prealbumin CA 19-9 Antigen Folate PTH Intact Urine WBC (Auto) Urine Creatinine Urine Chloride Urine Total Protein Fluid Glucose Fluid Total Protein Vancomycin Trough Miscellaneous Test Crossmatch 06/15/18 06/15/18 06/15/18 05:27 06:34 11:42 WBC RBC Hgb Hct MCV MCHC RDW Plt Count Lymph % (Auto) Graves % (Auto) Lymph # Graves # Seg Neutrophils % Seg Neuts % (Manual) Lymphocytes % (Manual) Monocytes % (Manual) Seg Neutrophils # Seg Neutrophils # Man Lymphocytes # (Manual) Monocytes # (Manual) PT INR APTT Heparin Anti-Xa Level POC ABG pH POC ABG pCO2 POC ABG pO2 Sodium 134 L Potassium Chloride Carbon Dioxide 17 L BUN 77 H Creatinine 3.2 H Glucose 110 H POC Glucose 116 H 131 H Lactic Acid Calcium 8.1 L Phosphorus 6.20 H D Magnesium Iron TIBC AST ALT Alkaline Phosphatase Lactate Dehydrogenase Total Creatine Kinase C-Reactive Protein Total Protein Albumin Prealbumin CA 19-9 Antigen Folate PTH Intact Urine WBC (Auto) Urine Creatinine Urine Chloride Urine Total Protein Fluid Glucose Fluid Total Protein Vancomycin Trough Miscellaneous Test Crossmatch 06/16/18 06/16/18 06/16/18 00:57 05:10 06:07 WBC RBC Hgb Hct MCV MCHC RDW Plt Count Lymph % (Auto) Graves % (Auto) Lymph # Graves # Seg Neutrophils % Seg Neuts % (Manual) Lymphocytes % (Manual) Monocytes % (Manual) Seg Neutrophils # Seg Neutrophils # Man Lymphocytes # (Manual) Monocytes # (Manual) PT INR APTT Heparin Anti-Xa Level POC ABG pH POC ABG pCO2 POC ABG pO2 Sodium 132 L Potassium Chloride Carbon Dioxide 19 L BUN 83 H Creatinine 3.2 H Glucose 113 H POC Glucose 137 H 109 H Lactic Acid Calcium 7.8 L Phosphorus 6.10 H Magnesium Iron TIBC AST ALT Alkaline Phosphatase Lactate Dehydrogenase Total Creatine Kinase C-Reactive Protein Total Protein Albumin Prealbumin CA 19-9 Antigen Folate PTH Intact Urine WBC (Auto) Urine Creatinine Urine Chloride Urine Total Protein Fluid Glucose Fluid Total Protein Vancomycin Trough Miscellaneous Test Crossmatch 06/16/18 06/16/18 06/17/18 11:51 15:46 00:02 WBC RBC Hgb Hct MCV MCHC RDW Plt Count Lymph % (Auto) Graves % (Auto) Lymph # Graves # Seg Neutrophils % Seg Neuts % (Manual) Lymphocytes % (Manual) Monocytes % (Manual) Seg Neutrophils # Seg Neutrophils # Man Lymphocytes # (Manual) Monocytes # (Manual) PT INR APTT Heparin Anti-Xa Level POC ABG pH POC ABG pCO2 POC ABG pO2 Sodium Potassium Chloride Carbon Dioxide BUN Creatinine Glucose POC Glucose 126 H 127 H 107 H Lactic Acid Calcium Phosphorus Magnesium Iron TIBC AST ALT Alkaline Phosphatase Lactate Dehydrogenase Total Creatine Kinase C-Reactive Protein Total Protein Albumin Prealbumin CA 19-9 Antigen Folate PTH Intact Urine WBC (Auto) Urine Creatinine Urine Chloride Urine Total Protein Fluid Glucose Fluid Total Protein Vancomycin Trough Miscellaneous Test Crossmatch 06/17/18 06/17/18 06/17/18 05:52 11:46 16:58 WBC RBC Hgb Hct MCV MCHC RDW Plt Count Lymph % (Auto) Graves % (Auto) Lymph # Graves # Seg Neutrophils % Seg Neuts % (Manual) Lymphocytes % (Manual) Monocytes % (Manual) Seg Neutrophils # Seg Neutrophils # Man Lymphocytes # (Manual) Monocytes # (Manual) PT INR APTT Heparin Anti-Xa Level POC ABG pH POC ABG pCO2 POC ABG pO2 Sodium 133 L Potassium Chloride Carbon Dioxide 17 L BUN 87 H Creatinine 3.2 H Glucose POC Glucose 129 H 140 H Lactic Acid Calcium 8.1 L Phosphorus 6.50 H Magnesium Iron TIBC AST ALT Alkaline Phosphatase Lactate Dehydrogenase Total Creatine Kinase C-Reactive Protein Total Protein Albumin Prealbumin 0.130 L CA 19-9 Antigen Folate PTH Intact Urine WBC (Auto) Urine Creatinine Urine Chloride Urine Total Protein Fluid Glucose Fluid Total Protein Vancomycin Trough Miscellaneous Test Crossmatch 06/18/18 06/18/18 06/18/18 04:04 04:04 14:15 WBC RBC 3.00 L Hgb 8.9 L Hct 26.5 L MCV MCHC RDW 17.8 H Plt Count 494 H Lymph % (Auto) 7.9 L Graves % (Auto) 9.3 H Lymph # 0.8 L Graves # 1.0 H Seg Neutrophils % 81.2 H Seg Neuts % (Manual) Lymphocytes % (Manual) Monocytes % (Manual) Seg Neutrophils # 8.6 H Seg Neutrophils # Man Lymphocytes # (Manual) Monocytes # (Manual) PT INR APTT Heparin Anti-Xa Level POC ABG pH POC ABG pCO2 POC ABG pO2 Sodium 128 L Potassium Chloride Carbon Dioxide 18 L BUN 88 H Creatinine 3.1 H Glucose 129 H POC Glucose 143 H Lactic Acid Calcium 7.8 L Phosphorus 6.20 H Magnesium Iron TIBC AST ALT Alkaline Phosphatase Lactate Dehydrogenase Total Creatine Kinase C-Reactive Protein Total Protein Albumin Prealbumin CA 19-9 Antigen Folate PTH Intact Urine WBC (Auto) Urine Creatinine Urine Chloride Urine Total Protein Fluid Glucose Fluid Total Protein Vancomycin Trough Miscellaneous Test Crossmatch 06/18/18 06/19/18 06/19/18 17:54 01:45 06:20 WBC RBC Hgb Hct MCV MCHC RDW Plt Count Lymph % (Auto) Graves % (Auto) Lymph # Graves # Seg Neutrophils % Seg Neuts % (Manual) Lymphocytes % (Manual) Monocytes % (Manual) Seg Neutrophils # Seg Neutrophils # Man Lymphocytes # (Manual) Monocytes # (Manual) PT INR APTT Heparin Anti-Xa Level POC ABG pH POC ABG pCO2 POC ABG pO2 Sodium Potassium Chloride 93.9 L Carbon Dioxide BUN 78 H Creatinine 2.8 H Glucose POC Glucose 138 H 141 H Lactic Acid Calcium 7.1 L Phosphorus 6.40 H Magnesium Iron TIBC AST ALT Alkaline Phosphatase Lactate Dehydrogenase Total Creatine Kinase C-Reactive Protein Total Protein Albumin Prealbumin CA 19-9 Antigen Folate PTH Intact Urine WBC (Auto) Urine Creatinine Urine Chloride Urine Total Protein Fluid Glucose Fluid Total Protein Vancomycin Trough Miscellaneous Test Crossmatch 06/19/18 06/19/18 06/19/18 06:49 07:59 16:32 WBC RBC Hgb Hct MCV MCHC RDW Plt Count Lymph % (Auto) Graves % (Auto) Lymph # Graves # Seg Neutrophils % Seg Neuts % (Manual) Lymphocytes % (Manual) Monocytes % (Manual) Seg Neutrophils # Seg Neutrophils # Man Lymphocytes # (Manual) Monocytes # (Manual) PT INR APTT Heparin Anti-Xa Level POC ABG pH POC ABG pCO2 POC ABG pO2 Sodium Potassium Chloride Carbon Dioxide BUN 80 H Creatinine 2.9 H Glucose 123 H POC Glucose 130 H 134 H Lactic Acid Calcium 7.7 L Phosphorus Magnesium Iron TIBC AST ALT Alkaline Phosphatase Lactate Dehydrogenase Total Creatine Kinase C-Reactive Protein Total Protein Albumin Prealbumin CA 19-9 Antigen Folate PTH Intact Urine WBC (Auto) Urine Creatinine Urine Chloride Urine Total Protein Fluid Glucose Fluid Total Protein Vancomycin Trough Miscellaneous Test Crossmatch 06/20/18 06/20/18 06/20/18 00:11 05:55 05:55 WBC RBC 2.73 L Hgb 8.0 L Hct 24.2 L MCV MCHC RDW 17.4 H Plt Count 512 H Lymph % (Auto) 12.3 L Graves % (Auto) 11.3 H Lymph # 1.1 L Graves # 1.0 H Seg Neutrophils % 74.8 H Seg Neuts % (Manual) Lymphocytes % (Manual) Monocytes % (Manual) Seg Neutrophils # Seg Neutrophils # Man Lymphocytes # (Manual) Monocytes # (Manual) PT INR APTT Heparin Anti-Xa Level POC ABG pH POC ABG pCO2 POC ABG pO2 Sodium Potassium Chloride Carbon Dioxide 32 H BUN 70 H Creatinine 2.5 H Glucose 105 H POC Glucose 131 H Lactic Acid Calcium 8.0 L Phosphorus Magnesium Iron TIBC AST ALT Alkaline Phosphatase Lactate Dehydrogenase Total Creatine Kinase C-Reactive Protein Total Protein Albumin Prealbumin CA 19-9 Antigen Folate PTH Intact Urine WBC (Auto) Urine Creatinine Urine Chloride Urine Total Protein Fluid Glucose Fluid Total Protein Vancomycin Trough Miscellaneous Test Crossmatch 06/20/18 06/20/1818 05:55 12:10 16:01 WBC RBC Hgb Hct MCV MCHC RDW Plt Count Lymph % (Auto) Graves % (Auto) Lymph # Graves # Seg Neutrophils % Seg Neuts % (Manual) Lymphocytes % (Manual) Monocytes % (Manual) Seg Neutrophils # Seg Neutrophils # Man Lymphocytes # (Manual) Monocytes # (Manual) PT INR APTT Heparin Anti-Xa Level POC ABG pH POC ABG pCO2 POC ABG pO2 Sodium Potassium Chloride Carbon Dioxide BUN Creatinine Glucose POC Glucose 112 H 127 H 145 H Lactic Acid Calcium Phosphorus Magnesium Iron TIBC AST ALT Alkaline Phosphatase Lactate Dehydrogenase Total Creatine Kinase C-Reactive Protein Total Protein Albumin Prealbumin CA 19-9 Antigen Folate PTH Intact Urine WBC (Auto) Urine Creatinine Urine Chloride Urine Total Protein Fluid Glucose Fluid Total Protein Vancomycin Trough Miscellaneous Test Crossmatch 06/20/18 06/21/18 06/21/18 23:54 05:50 05:50 WBC RBC 2.57 L Hgb 7.7 L Hct 26.6 L MCV 104 H MCHC 29 L RDW 19.1 H Plt Count 521 H Lymph % (Auto) 10.0 L Graves % (Auto) 7.4 H Lymph # 1.0 L Graves # Seg Neutrophils % 81.3 H Seg Neuts % (Manual) Lymphocytes % (Manual) Monocytes % (Manual) Seg Neutrophils # 7.9 H Seg Neutrophils # Man Lymphocytes # (Manual) Monocytes # (Manual) PT INR APTT Heparin Anti-Xa Level POC ABG pH POC ABG pCO2 POC ABG pO2 Sodium Potassium 5.8 H D Chloride 90.3 L Carbon Dioxide 37 H BUN 57 H Creatinine 1.9 H Glucose POC Glucose 154 H Lactic Acid Calcium 7.3 L Phosphorus Magnesium Iron TIBC AST 50 H ALT Alkaline Phosphatase 190 H Lactate Dehydrogenase Total Creatine Kinase C-Reactive Protein Total Protein Albumin 1.8 L Prealbumin CA 19-9 Antigen Folate PTH Intact Urine WBC (Auto) Urine Creatinine Urine Chloride Urine Total Protein Fluid Glucose Fluid Total Protein Vancomycin Trough Miscellaneous Test Crossmatch 06/21/18 06/21/18 06/21/18 06:57 13:37 17:00 WBC RBC Hgb Hct MCV MCHC RDW Plt Count Lymph % (Auto) Graves % (Auto) Lymph # Graves # Seg Neutrophils % Seg Neuts % (Manual) Lymphocytes % (Manual) Monocytes % (Manual) Seg Neutrophils # Seg Neutrophils # Man Lymphocytes # (Manual) Monocytes # (Manual) PT INR APTT Heparin Anti-Xa Level POC ABG pH POC ABG pCO2 POC ABG pO2 Sodium Potassium Chloride Carbon Dioxide BUN Creatinine Glucose 111 H POC Glucose 141 H 148 H Lactic Acid Calcium Phosphorus Magnesium Iron TIBC AST ALT Alkaline Phosphatase Lactate Dehydrogenase Total Creatine Kinase C-Reactive Protein Total Protein Albumin Prealbumin CA 19-9 Antigen Folate PTH Intact Urine WBC (Auto) Urine Creatinine Urine Chloride Urine Total Protein Fluid Glucose Fluid Total Protein Vancomycin Trough Miscellaneous Test Crossmatch 06/21/18 06/21/18 06/22/18 17:27 22:01 06:02 WBC RBC Hgb Hct MCV MCHC RDW Plt Count Lymph % (Auto) Graves % (Auto) Lymph # Graves # Seg Neutrophils % Seg Neuts % (Manual) Lymphocytes % (Manual) Monocytes % (Manual) Seg Neutrophils # Seg Neutrophils # Man Lymphocytes # (Manual) Monocytes # (Manual) PT INR APTT Heparin Anti-Xa Level POC ABG pH POC ABG pCO2 POC ABG pO2 Sodium Potassium 3.2 L Chloride Carbon Dioxide 39 H BUN 53 H Creatinine 1.9 H Glucose 1348 H* POC Glucose 130 H 122 H Lactic Acid Calcium 7.5 L Phosphorus Magnesium Iron TIBC AST ALT Alkaline Phosphatase Lactate Dehydrogenase Total Creatine Kinase C-Reactive Protein Total Protein Albumin Prealbumin CA 19-9 Antigen Folate PTH Intact Urine WBC (Auto) Urine Creatinine Urine Chloride Urine Total Protein Fluid Glucose Fluid Total Protein Vancomycin Trough Miscellaneous Test Crossmatch 06/22/18 06/22/18 06/22/18 06:16 07:26 07:48 WBC RBC Hgb Hct MCV MCHC RDW Plt Count Lymph % (Auto) Graves % (Auto) Lymph # Graves # Seg Neutrophils % Seg Neuts % (Manual) Lymphocytes % (Manual) Monocytes % (Manual) Seg Neutrophils # Seg Neutrophils # Man Lymphocytes # (Manual) Monocytes # (Manual) PT INR APTT Heparin Anti-Xa Level POC ABG pH POC ABG pCO2 POC ABG pO2 Sodium Potassium Chloride Carbon Dioxide 37 H BUN 57 H Creatinine 1.9 H Glucose 147 H POC Glucose 148 H 153 H Lactic Acid Calcium 8.3 L Phosphorus Magnesium Iron TIBC AST ALT Alkaline Phosphatase Lactate Dehydrogenase Total Creatine Kinase C-Reactive Protein Total Protein Albumin Prealbumin CA 19-9 Antigen Folate PTH Intact Urine WBC (Auto) Urine Creatinine Urine Chloride Urine Total Protein Fluid Glucose Fluid Total Protein Vancomycin Trough Miscellaneous Test Crossmatch 06/22/18 06/22/18 06/22/18 11:26 16:26 23:57 WBC RBC Hgb Hct MCV MCHC RDW Plt Count Lymph % (Auto) Graves % (Auto) Lymph # Graves # Seg Neutrophils % Seg Neuts % (Manual) Lymphocytes % (Manual) Monocytes % (Manual) Seg Neutrophils # Seg Neutrophils # Man Lymphocytes # (Manual) Monocytes # (Manual) PT INR APTT Heparin Anti-Xa Level POC ABG pH POC ABG pCO2 POC ABG pO2 Sodium Potassium Chloride Carbon Dioxide BUN Creatinine Glucose POC Glucose 121 H 122 H 180 H Lactic Acid Calcium Phosphorus Magnesium Iron TIBC AST ALT Alkaline Phosphatase Lactate Dehydrogenase Total Creatine Kinase C-Reactive Protein Total Protein Albumin Prealbumin CA 19-9 Antigen Folate PTH Intact Urine WBC (Auto) Urine Creatinine Urine Chloride Urine Total Protein Fluid Glucose Fluid Total Protein Vancomycin Trough Miscellaneous Test Crossmatch 06/22/18 06/23/18 06/23/18 23:57 00:30 01:40 WBC RBC Hgb Hct MCV MCHC RDW Plt Count Lymph % (Auto) Graves % (Auto) Lymph # Graves # Seg Neutrophils % Seg Neuts % (Manual) Lymphocytes % (Manual) Monocytes % (Manual) Seg Neutrophils # Seg Neutrophils # Man Lymphocytes # (Manual) Monocytes # (Manual) PT INR APTT Heparin Anti-Xa Level POC ABG pH 7.195 L 7.235 L POC ABG pCO2 105.2 H 95.7 H POC ABG pO2 Sodium Potassium Chloride Carbon Dioxide BUN Creatinine Glucose POC Glucose Lactic Acid Calcium Phosphorus Magnesium Iron TIBC AST ALT Alkaline Phosphatase Lactate Dehydrogenase Total Creatine Kinase C-Reactive Protein Total Protein Albumin Prealbumin CA 19-9 Antigen Folate PTH Intact Urine WBC (Auto) Urine Creatinine 99.7 H Urine Chloride 10.0 L Urine Total Protein 272 H Fluid Glucose Fluid Total Protein Vancomycin Trough Miscellaneous Test Crossmatch 06/23/18 06/23/18 06/23/18 05:58 07:20 08:31 WBC 16.0 H RBC 2.35 L Hgb 6.7 L Hct 22.3 L MCV 95 H MCHC 30 L RDW 18.5 H Plt Count 512 H Lymph % (Auto) Graves % (Auto) Lymph # Graves # Seg Neutrophils % Seg Neuts % (Manual) Lymphocytes % (Manual) Monocytes % (Manual) Seg Neutrophils # Seg Neutrophils # Man Lymphocytes # (Manual) Monocytes # (Manual) PT INR APTT Heparin Anti-Xa Level POC ABG pH POC ABG pCO2 POC ABG pO2 Sodium Potassium Chloride Carbon Dioxide BUN Creatinine Glucose POC Glucose 116 H 123 H Lactic Acid Calcium Phosphorus Magnesium Iron TIBC AST ALT Alkaline Phosphatase Lactate Dehydrogenase Total Creatine Kinase C-Reactive Protein Total Protein Albumin Prealbumin CA 19-9 Antigen Folate PTH Intact Urine WBC (Auto) Urine Creatinine Urine Chloride Urine Total Protein Fluid Glucose Fluid Total Protein Vancomycin Trough Miscellaneous Test Crossmatch 06/23/18 06/23/18 06/23/18 08:31 08:34 08:34 WBC RBC Hgb Hct MCV MCHC RDW Plt Count 485 H Lymph % (Auto) Graves % (Auto) Lymph # Graves # Seg Neutrophils % Seg Neuts % (Manual) Lymphocytes % (Manual) Monocytes % (Manual) Seg Neutrophils # Seg Neutrophils # Man Lymphocytes # (Manual) Monocytes # (Manual) PT 15.2 H INR 1.15 H APTT 41.9 H Heparin Anti-Xa Level POC ABG pH POC ABG pCO2 POC ABG pO2 Sodium 148 H Potassium Chloride Carbon Dioxide BUN 59 H Creatinine 2.2 H Glucose 106 H POC Glucose Lactic Acid Calcium 8.2 L Phosphorus 6.60 H Magnesium Iron TIBC AST 46 H ALT Alkaline Phosphatase 188 H Lactate Dehydrogenase Total Creatine Kinase C-Reactive Protein Total Protein Albumin 1.6 L Prealbumin CA 19-9 Antigen Folate PTH Intact Urine WBC (Auto) Urine Creatinine Urine Chloride Urine Total Protein Fluid Glucose Fluid Total Protein Vancomycin Trough Miscellaneous Test Crossmatch 06/23/18 06/23/18 06/23/18 09:29 09:40 09:43 WBC RBC Hgb Hct MCV MCHC RDW Plt Count Lymph % (Auto) Graves % (Auto) Lymph # Graves # Seg Neutrophils % Seg Neuts % (Manual) Lymphocytes % (Manual) Monocytes % (Manual) Seg Neutrophils # Seg Neutrophils # Man Lymphocytes # (Manual) Monocytes # (Manual) PT INR APTT Heparin Anti-Xa Level POC ABG pH 7.521 H POC ABG pCO2 53.6 H 48.4 H POC ABG pO2 37 L 181 H Sodium Potassium Chloride Carbon Dioxide BUN Creatinine Glucose POC Glucose Lactic Acid Calcium Phosphorus Magnesium Iron TIBC AST ALT Alkaline Phosphatase Lactate Dehydrogenase Total Creatine Kinase C-Reactive Protein Total Protein Albumin Prealbumin CA 19-9 Antigen Folate PTH Intact Urine WBC (Auto) Urine Creatinine Urine Chloride Urine Total Protein Fluid Glucose Fluid Total Protein Vancomycin Trough Miscellaneous Test Crossmatch See Detail 06/23/18 06/23/18 06/23/18 17:03 17:03 18:33 WBC 22.2 H RBC 2.85 L Hgb 8.4 L Hct 25.6 L MCV MCHC RDW 17.6 H Plt Count 515 H Lymph % (Auto) Graves % (Auto) Lymph # Graves # Seg Neutrophils % Seg Neuts % (Manual) Lymphocytes % (Manual) Monocytes % (Manual) Seg Neutrophils # Seg Neutrophils # Man Lymphocytes # (Manual) Monocytes # (Manual) PT INR APTT Heparin Anti-Xa Level 0.13 L POC ABG pH POC ABG pCO2 POC ABG pO2 Sodium Potassium Chloride Carbon Dioxide BUN Creatinine Glucose POC Glucose < 40 L Lactic Acid Calcium Phosphorus Magnesium Iron TIBC AST ALT Alkaline Phosphatase Lactate Dehydrogenase Total Creatine Kinase C-Reactive Protein Total Protein Albumin Prealbumin CA 19-9 Antigen Folate PTH Intact Urine WBC (Auto) Urine Creatinine Urine Chloride Urine Total Protein Fluid Glucose Fluid Total Protein Vancomycin Trough Miscellaneous Test Crossmatch 06/23/18 06/23/18 06/24/18 23:53 Unknown 00:30 WBC RBC Hgb Hct MCV MCHC RDW Plt Count Lymph % (Auto) Graves % (Auto) Lymph # Graves # Seg Neutrophils % Seg Neuts % (Manual) Lymphocytes % (Manual) Monocytes % (Manual) Seg Neutrophils # Seg Neutrophils # Man Lymphocytes # (Manual) Monocytes # (Manual) PT INR APTT Heparin Anti-Xa Level POC ABG pH POC ABG pCO2 POC ABG pO2 Sodium 148 H Potassium Chloride Carbon Dioxide 36 H BUN 57 H Creatinine 1.9 H Glucose POC Glucose 140 H Lactic Acid Calcium 8.3 L Phosphorus Magnesium Iron TIBC AST ALT Alkaline Phosphatase Lactate Dehydrogenase Total Creatine Kinase C-Reactive Protein Total Protein Albumin Prealbumin CA 19-9 Antigen Folate PTH Intact Urine WBC (Auto) 8.0 H Urine Creatinine Urine Chloride Urine Total Protein Fluid Glucose Fluid Total Protein Vancomycin Trough Miscellaneous Test Crossmatch 06/24/18 06/24/18 06/24/18 00:40 04:30 04:30 WBC 26.9 H RBC 2.79 L Hgb 8.1 L Hct 25.0 L MCV MCHC RDW 17.5 H Plt Count 487 H Lymph % (Auto) Graves % (Auto) Lymph # Graves # Seg Neutrophils % Seg Neuts % (Manual) Lymphocytes % (Manual) 6.0 L Monocytes % (Manual) 8.0 H Seg Neutrophils # Seg Neutrophils # Man 16.9 H Lymphocytes # (Manual) Monocytes # (Manual) 2.2 H PT INR APTT Heparin Anti-Xa Level 0.13 L POC ABG pH POC ABG pCO2 POC ABG pO2 Sodium 151 H Potassium Chloride Carbon Dioxide 36 H D BUN 74 H Creatinine 2.9 H Glucose 126 H POC Glucose Lactic Acid Calcium 8.2 L Phosphorus Magnesium Iron TIBC AST ALT Alkaline Phosphatase Lactate Dehydrogenase Total Creatine Kinase C-Reactive Protein Total Protein Albumin Prealbumin CA 19-9 Antigen Folate PTH Intact Urine WBC (Auto) Urine Creatinine Urine Chloride Urine Total Protein Fluid Glucose Fluid Total Protein Vancomycin Trough Miscellaneous Test Crossmatch 06/24/18 06/24/18 06/24/18 04:33 06:41 08:00 WBC RBC Hgb Hct MCV MCHC RDW Plt Count Lymph % (Auto) Graves % (Auto) Lymph # Graves # Seg Neutrophils % Seg Neuts % (Manual) Lymphocytes % (Manual) Monocytes % (Manual) Seg Neutrophils # Seg Neutrophils # Man Lymphocytes # (Manual) Monocytes # (Manual) PT INR APTT Heparin Anti-Xa Level 0.21 L POC ABG pH 7.517 H POC ABG pCO2 50.9 H POC ABG pO2 170 H Sodium Potassium Chloride Carbon Dioxide BUN Creatinine Glucose POC Glucose 140 H Lactic Acid Calcium Phosphorus Magnesium Iron TIBC AST ALT Alkaline Phosphatase Lactate Dehydrogenase Total Creatine Kinase C-Reactive Protein Total Protein Albumin Prealbumin CA 19-9 Antigen Folate PTH Intact Urine WBC (Auto) Urine Creatinine Urine Chloride Urine Total Protein Fluid Glucose Fluid Total Protein Vancomycin Trough Miscellaneous Test Crossmatch 06/24/18 06/24/18 06/24/18 12:27 14:20 18:46 WBC RBC Hgb Hct MCV MCHC RDW Plt Count Lymph % (Auto) Graves % (Auto) Lymph # Graves # Seg Neutrophils % Seg Neuts % (Manual) Lymphocytes % (Manual) Monocytes % (Manual) Seg Neutrophils # Seg Neutrophils # Man Lymphocytes # (Manual) Monocytes # (Manual) PT INR APTT Heparin Anti-Xa Level 0.28 L POC ABG pH POC ABG pCO2 POC ABG pO2 Sodium Potassium Chloride Carbon Dioxide BUN Creatinine Glucose POC Glucose 216 H 182 H Lactic Acid Calcium Phosphorus Magnesium Iron TIBC AST ALT Alkaline Phosphatase Lactate Dehydrogenase Total Creatine Kinase C-Reactive Protein Total Protein Albumin Prealbumin CA 19-9 Antigen Folate PTH Intact Urine WBC (Auto) Urine Creatinine Urine Chloride Urine Total Protein Fluid Glucose Fluid Total Protein Vancomycin Trough Miscellaneous Test Crossmatch 06/24/18 06/25/18 06/25/18 23:43 04:29 04:37 WBC RBC Hgb 8.1 L Hct 25.6 L MCV MCHC RDW Plt Count Lymph % (Auto) Graves % (Auto) Lymph # Graves # Seg Neutrophils % Seg Neuts % (Manual) Lymphocytes % (Manual) Monocytes % (Manual) Seg Neutrophils # Seg Neutrophils # Man Lymphocytes # (Manual) Monocytes # (Manual) PT INR APTT Heparin Anti-Xa Level POC ABG pH 7.534 H POC ABG pCO2 POC ABG pO2 161 H Sodium Potassium Chloride Carbon Dioxide BUN Creatinine Glucose POC Glucose 217 H Lactic Acid Calcium Phosphorus Magnesium Iron TIBC AST ALT Alkaline Phosphatase Lactate Dehydrogenase Total Creatine Kinase C-Reactive Protein Total Protein Albumin Prealbumin CA 19-9 Antigen Folate PTH Intact Urine WBC (Auto) Urine Creatinine Urine Chloride Urine Total Protein Fluid Glucose Fluid Total Protein Vancomycin Trough Miscellaneous Test Crossmatch 06/25/18 06/25/18 06/25/18 04:37 05:48 12:11 WBC RBC Hgb Hct MCV MCHC RDW Plt Count Lymph % (Auto) Graves % (Auto) Lymph # Graves # Seg Neutrophils % Seg Neuts % (Manual) Lymphocytes % (Manual) Monocytes % (Manual) Seg Neutrophils # Seg Neutrophils # Man Lymphocytes # (Manual) Monocytes # (Manual) PT INR APTT Heparin Anti-Xa Level POC ABG pH POC ABG pCO2 POC ABG pO2 Sodium Potassium 2.6 L* D Chloride Carbon Dioxide 32 H BUN 75 H Creatinine 3.1 H Glucose 244 H POC Glucose 225 H 252 H Lactic Acid Calcium Phosphorus Magnesium Iron TIBC AST ALT Alkaline Phosphatase Lactate Dehydrogenase Total Creatine Kinase C-Reactive Protein Total Protein Albumin Prealbumin CA 19-9 Antigen Folate PTH Intact Urine WBC (Auto) Urine Creatinine Urine Chloride Urine Total Protein Fluid Glucose Fluid Total Protein Vancomycin Trough Miscellaneous Test Crossmatch 06/25/18 06/25/18 06/25/18 15:58 18:12 20:30 WBC RBC Hgb 8.5 L Hct 27.6 L MCV MCHC RDW Plt Count Lymph % (Auto) Graves % (Auto) Lymph # Graves # Seg Neutrophils % Seg Neuts % (Manual) Lymphocytes % (Manual) Monocytes % (Manual) Seg Neutrophils # Seg Neutrophils # Man Lymphocytes # (Manual) Monocytes # (Manual) PT INR APTT Heparin Anti-Xa Level POC ABG pH POC ABG pCO2 POC ABG pO2 Sodium 148 H Potassium 2.4 L* Chloride Carbon Dioxide 31 H BUN 79 H Creatinine 3.0 H Glucose 152 H POC Glucose 199 H Lactic Acid Calcium 8.3 L Phosphorus Magnesium Iron TIBC AST ALT Alkaline Phosphatase Lactate Dehydrogenase Total Creatine Kinase C-Reactive Protein Total Protein Albumin Prealbumin CA 19-9 Antigen Folate PTH Intact Urine WBC (Auto) Urine Creatinine Urine Chloride Urine Total Protein Fluid Glucose Fluid Total Protein Vancomycin Trough Miscellaneous Test Crossmatch 06/26/18 06/26/18 06/26/18 04:00 04:00 04:00 WBC 26.2 H RBC 3.16 L Hgb 9.1 L Hct 28.8 L MCV MCHC RDW 18.2 H Plt Count Lymph % (Auto) Graves % (Auto) Lymph # Graves # Seg Neutrophils % Seg Neuts % (Manual) Lymphocytes % (Manual) 2.0 L Monocytes % (Manual) Seg Neutrophils # Seg Neutrophils # Man 11.5 H Lymphocytes # (Manual) 0.5 L Monocytes # (Manual) PT INR APTT Heparin Anti-Xa Level POC ABG pH POC ABG pCO2 POC ABG pO2 Sodium 146 H Potassium 3.2 L D 3.3 L Chloride 109.0 H 108.2 H Carbon Dioxide BUN 74 H 75 H Creatinine 2.9 H 2.9 H Glucose 62 L 60 L POC Glucose Lactic Acid Calcium 7.7 L 7.9 L Phosphorus Magnesium 1.60 L Iron TIBC AST ALT Alkaline Phosphatase 173 H Lactate Dehydrogenase Total Creatine Kinase C-Reactive Protein Total Protein 6.1 L Albumin 1.4 L Prealbumin CA 19-9 Antigen Folate PTH Intact Urine WBC (Auto) Urine Creatinine Urine Chloride Urine Total Protein Fluid Glucose Fluid Total Protein Vancomycin Trough Miscellaneous Test Crossmatch 06/26/18 06/26/18 06/26/18 05:57 05:59 06:22 WBC RBC Hgb Hct MCV MCHC RDW Plt Count Lymph % (Auto) Graves % (Auto) Lymph # Graves # Seg Neutrophils % Seg Neuts % (Manual) Lymphocytes % (Manual) Monocytes % (Manual) Seg Neutrophils # Seg Neutrophils # Man Lymphocytes # (Manual) Monocytes # (Manual) PT INR APTT Heparin Anti-Xa Level POC ABG pH 7.269 L POC ABG pCO2 68.0 H POC ABG pO2 73 L Sodium Potassium Chloride Carbon Dioxide BUN Creatinine Glucose POC Glucose 59 L 130 H Lactic Acid Calcium Phosphorus Magnesium Iron TIBC AST ALT Alkaline Phosphatase Lactate Dehydrogenase Total Creatine Kinase C-Reactive Protein Total Protein Albumin Prealbumin CA 19-9 Antigen Folate PTH Intact Urine WBC (Auto) Urine Creatinine Urine Chloride Urine Total Protein Fluid Glucose Fluid Total Protein Vancomycin Trough Miscellaneous Test Crossmatch 06/27/18 06/27/18 06/27/18 03:34 05:20 05:20 WBC RBC Hgb 6.7 L Hct 21.2 L D MCV MCHC RDW Plt Count Lymph % (Auto) Graves % (Auto) Lymph # Graves # Seg Neutrophils % Seg Neuts % (Manual) Lymphocytes % (Manual) Monocytes % (Manual) Seg Neutrophils # Seg Neutrophils # Man Lymphocytes # (Manual) Monocytes # (Manual) PT INR APTT Heparin Anti-Xa Level POC ABG pH 7.251 L POC ABG pCO2 63.7 H POC ABG pO2 157 H Sodium Potassium 5.9 H D Chloride Carbon Dioxide BUN 87 H Creatinine 4.4 H D Glucose 128 H POC Glucose Lactic Acid Calcium 8.1 L Phosphorus Magnesium Iron TIBC AST ALT Alkaline Phosphatase Lactate Dehydrogenase Total Creatine Kinase C-Reactive Protein Total Protein Albumin Prealbumin CA 19-9 Antigen Folate PTH Intact Urine WBC (Auto) Urine Creatinine Urine Chloride Urine Total Protein Fluid Glucose Fluid Total Protein Vancomycin Trough Miscellaneous Test Crossmatch 06/27/18 09:05 WBC RBC Hgb 6.9 L Hct 21.6 L MCV MCHC RDW Plt Count Lymph % (Auto) Graves % (Auto) Lymph # Graves # Seg Neutrophils % Seg Neuts % (Manual) Lymphocytes % (Manual) Monocytes % (Manual) Seg Neutrophils # Seg Neutrophils # Man Lymphocytes # (Manual) Monocytes # (Manual) PT INR APTT Heparin Anti-Xa Level POC ABG pH POC ABG pCO2 POC ABG pO2 Sodium Potassium Chloride Carbon Dioxide BUN Creatinine Glucose POC Glucose Lactic Acid Calcium Phosphorus Magnesium Iron TIBC AST ALT Alkaline Phosphatase Lactate Dehydrogenase Total Creatine Kinase C-Reactive Protein Total Protein Albumin Prealbumin CA 19-9 Antigen Folate PTH Intact Urine WBC (Auto) Urine Creatinine Urine Chloride Urine Total Protein Fluid Glucose Fluid Total Protein Vancomycin Trough Miscellaneous Test Crossmatch Allied health notes reviewed: nursing
[2018-06-27] MEDS ORDERED: NACL 0.9% 500 ML 500 ML IV NR (10:07)
--- NOTE | 2018-06-27 10:14 | Progress Note ---
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 Interval history: do not find any evence of brain activity on the EEG and clinical exam confirms lack of brain activity do not find any evdence of brain activtty agree with nuclear blood flow study Objective - Vital Sign Vital Signs - 12hr 06/26/18 06/26/18 06/26/18 22:15 22:30 22:45 Temperature Pulse Rate 122 H 123 H 123 H Pulse Rate [ From Monitor] Respiratory 24 24 24 Rate Blood Pressure 116/75 121/74 124/76 O2 Sat by Pulse 95 96 96 Oximetry 06/26/18 06/26/18 06/26/18 23:00 23:15 23:18 Temperature Pulse Rate 121 H 118 H 138 H Pulse Rate [ From Monitor] Respiratory 24 24 Rate Blood Pressure 105/66 94/55 94/55 O2 Sat by Pulse 96 96 96 Oximetry 06/26/18 06/26/18 06/26/18 23:30 23:45 23:56 Temperature Pulse Rate 124 H 124 H 122 H Pulse Rate [ From Monitor] Respiratory 24 24 24 Rate Blood Pressure 122/76 124/77 124/77 O2 Sat by Pulse 96 96 96 Oximetry 06/27/18 06/27/18 06/27/18 00:00 00:06 00:15 Temperature Pulse Rate 122 H 124 H 121 H Pulse Rate [ 121 H From Monitor] Respiratory 24 24 Rate Blood Pressure 116/70 124/77 121/73 O2 Sat by Pulse 96 96 Oximetry 06/27/18 06/27/18 06/27/18 00:30 00:45 01:00 Temperature 98.9 F Pulse Rate 121 H 121 H 119 H Pulse Rate [ From Monitor] Respiratory 24 25 H 24 Rate Blood Pressure 120/75 123/80 123/80 O2 Sat by Pulse 96 97 97 Oximetry 06/27/18 06/27/18 06/27/18 01:15 01:30 01:45 Temperature Pulse Rate 119 H 118 H 118 H Pulse Rate [ From Monitor] Respiratory 24 24 24 Rate Blood Pressure 118/77 122/77 127/79 O2 Sat by Pulse 97 97 97 Oximetry 06/27/18 06/27/18 06/27/18 02:00 02:15 02:30 Temperature Pulse Rate 117 H 117 H 118 H Pulse Rate [ From Monitor] Respiratory 24 24 23 Rate Blood Pressure 121/77 126/82 138/92 O2 Sat by Pulse 97 98 98 Oximetry 06/27/18 06/27/18 06/27/18 02:45 03:00 03:15 Temperature Pulse Rate 116 H 115 H 113 H Pulse Rate [ From Monitor] Respiratory 24 24 24 Rate Blood Pressure 125/80 123/79 116/72 O2 Sat by Pulse 97 98 98 Oximetry 06/27/18 06/27/18 06/27/18 03:19 03:30 03:45 Temperature Pulse Rate 111 H 113 H 112 H Pulse Rate [ From Monitor] Respiratory 24 24 Rate Blood Pressure 116/72 130/82 112/69 O2 Sat by Pulse 98 99 96 Oximetry 06/27/18 06/27/18 06/27/18 04:00 04:15 04:30 Temperature 99.3 F Pulse Rate 109 H 109 H 109 H Pulse Rate [ 121 H From Monitor] Respiratory 24 24 24 Rate Blood Pressure 102/61 110/68 109/69 O2 Sat by Pulse 97 97 98 Oximetry 06/27/18 06/27/18 06/27/18 04:45 05:00 05:15 Temperature Pulse Rate 107 H 106 H 104 H Pulse Rate [ From Monitor] Respiratory 24 24 24 Rate Blood Pressure 106/65 108/67 103/60 O2 Sat by Pulse 98 98 98 Oximetry 06/27/18 06/27/18 06/27/18 05:30 05:45 06:00 Temperature Pulse Rate 103 H 102 H 101 H Pulse Rate [ From Monitor] Respiratory 24 24 24 Rate Blood Pressure 104/62 99/55 105/59 O2 Sat by Pulse 98 98 98 Oximetry 06/27/18 06/27/18 06/27/18 06:07 06:15 06:30 Temperature Pulse Rate 102 H 101 H 100 H Pulse Rate [ From Monitor] Respiratory 24 30 H Rate Blood Pressure 99/55 102/64 113/74 O2 Sat by Pulse 99 99 Oximetry 06/27/18 06/27/18 06/27/18 06:45 07:00 07:15 Temperature Pulse Rate 100 H 100 H 101 H Pulse Rate [ From Monitor] Respiratory 26 H 10 L 30 H Rate Blood Pressure 122/78 128/81 122/79 O2 Sat by Pulse 99 99 99 Oximetry 06/27/18 06/27/18 06/27/18 07:30 07:45 07:48 Temperature 99.9 F H Pulse Rate 101 H 101 H Pulse Rate [ From Monitor] Respiratory 30 H 30 H Rate Blood Pressure 131/81 127/82 O2 Sat by Pulse 99 99 Oximetry 06/27/18 06/27/18 06/27/18 08:00 08:15 08:30 Temperature Pulse Rate 101 H 102 H 102 H Pulse Rate [ From Monitor] Respiratory 30 H 30 H 30 H Rate Blood Pressure 127/82 128/81 132/85 O2 Sat by Pulse 100 99 99 Oximetry 06/27/18 06/27/18 06/27/18 08:45 09:00 09:15 Temperature Pulse Rate 102 H 102 H 107 H Pulse Rate [ From Monitor] Respiratory 30 H 30 H 30 H Rate Blood Pressure 133/85 135/86 135/86 O2 Sat by Pulse 99 99 99 Oximetry 06/27/18 06/27/18 09:30 09:45 Temperature Pulse Rate 109 H 107 H Pulse Rate [ From Monitor] Respiratory 30 H 30 H Rate Blood Pressure 133/84 108/63 O2 Sat by Pulse 98 98 Oximetry - Laboratory Findings CBC and BMP: 06/27/18 09:05 06/27/18 05:20 Abnormal Lab Findings: Abnormal Labs 05/13/18 05/13/18 05/13/18 04:27 04:27 19:39 WBC RBC 3.13 L Hgb 9.4 L Hct 26.8 L MCV MCHC 35 H RDW Plt Count Lymph % (Auto) [place] % (Auto) 9.6 H Lymph # [place] # Seg Neutrophils % Seg Neuts % (Manual) Lymphocytes % (Manual) Monocytes % (Manual) Seg Neutrophils # Seg Neutrophils # Man Lymphocytes # (Manual) Monocytes # (Manual) PT INR APTT Heparin Anti-Xa Level POC ABG pH POC ABG pCO2 POC ABG pO2 Sodium 132 L Potassium 5.5 H Chloride 94.1 L Carbon Dioxide 19 L BUN 72 H Creatinine 14.4 H Glucose POC Glucose Lactic Acid Calcium Phosphorus Magnesium Iron TIBC AST ALT Alkaline Phosphatase Lactate Dehydrogenase Total Creatine Kinase C-Reactive Protein Total Protein Albumin 2.8 L Prealbumin CA 19-9 Antigen Folate PTH Intact Urine WBC (Auto) Urine Creatinine 66.0 H Urine Chloride 27.8 L Urine Total Protein 24 H Fluid Glucose Fluid Total Protein Vancomycin Trough Miscellaneous Test Crossmatch 05/13/18 05/14/18 05/14/18 20:00 05:05 05:05 WBC RBC Hgb Hct MCV MCHC RDW Plt Count Lymph % (Auto) [place] % (Auto) Lymph # [place] # Seg Neutrophils % Seg Neuts % (Manual) Lymphocytes % (Manual) Monocytes % (Manual) Seg Neutrophils # Seg Neutrophils # Man Lymphocytes # (Manual) Monocytes # (Manual) PT INR APTT Heparin Anti-Xa Level POC ABG pH POC ABG pCO2 POC ABG pO2 Sodium 132 L 131 L Potassium 5.2 H 5.8 H Chloride 93.0 L 95.6 L Carbon Dioxide 19 L 20 L BUN 74 H 81 H Creatinine 15.0 H 16.6 H Glucose 134 H 127 H POC Glucose Lactic Acid Calcium 8.2 L 7.9 L Phosphorus 6.30 H Magnesium Iron TIBC AST ALT Alkaline Phosphatase Lactate Dehydrogenase Total Creatine Kinase 236 H C-Reactive Protein Total Protein Albumin Prealbumin CA 19-9 Antigen Folate PTH Intact 65.37 H Urine WBC (Auto) Urine Creatinine Urine Chloride Urine Total Protein Fluid Glucose Fluid Total Protein Vancomycin Trough Miscellaneous Test Crossmatch 05/14/18 05/14/18 05/14/18 09:28 10:56 13:29 WBC RBC Hgb Hct MCV MCHC RDW Plt Count Lymph % (Auto) [place] % (Auto) Lymph # [place] # Seg Neutrophils % Seg Neuts % (Manual) Lymphocytes % (Manual) Monocytes % (Manual) Seg Neutrophils # Seg Neutrophils # Man Lymphocytes # (Manual) Monocytes # (Manual) PT INR APTT 38.2 H Heparin Anti-Xa Level POC ABG pH POC ABG pCO2 POC ABG pO2 Sodium Potassium Chloride Carbon Dioxide BUN Creatinine Glucose POC Glucose 127 H 126 H Lactic Acid Calcium Phosphorus Magnesium Iron TIBC AST ALT Alkaline Phosphatase Lactate Dehydrogenase Total Creatine Kinase C-Reactive Protein Total Protein Albumin Prealbumin CA 19-9 Antigen Folate PTH Intact Urine WBC (Auto) Urine Creatinine Urine Chloride Urine Total Protein Fluid Glucose Fluid Total Protein Vancomycin Trough Miscellaneous Test Crossmatch 05/15/18 05/15/18 05/16/18 08:06 08:06 07:02 WBC RBC 2.84 L 2.74 L Hgb 8.5 L 8.5 L Hct 24.2 L 23.5 L MCV MCHC 35 H 36 H RDW Plt Count Lymph % (Auto) [place] % (Auto) 10.4 H 11.0 H Lymph # 1.1 L [place] # 0.9 H Seg Neutrophils % 72.6 H Seg Neuts % (Manual) Lymphocytes % (Manual) Monocytes % (Manual) Seg Neutrophils # Seg Neutrophils # Man Lymphocytes # (Manual) Monocytes # (Manual) PT INR APTT Heparin Anti-Xa Level POC ABG pH POC ABG pCO2 POC ABG pO2 Sodium Potassium Chloride Carbon Dioxide 19 L BUN 66 H Creatinine 12.0 H Glucose 115 H POC Glucose Lactic Acid Calcium 8.1 L Phosphorus Magnesium Iron TIBC AST ALT Alkaline Phosphatase Lactate Dehydrogenase Total Creatine Kinase C-Reactive Protein Total Protein Albumin Prealbumin CA 19-9 Antigen Folate PTH Intact Urine WBC (Auto) Urine Creatinine Urine Chloride Urine Total Protein Fluid Glucose Fluid Total Protein Vancomycin Trough Miscellaneous Test Crossmatch 05/16/18 05/16/18 05/17/18 07:02 07:02 05:08 WBC RBC 2.78 L Hgb 8.2 L Hct 23.9 L MCV MCHC RDW Plt Count Lymph % (Auto) [place] % (Auto) 13.9 H Lymph # [place] # 0.9 H Seg Neutrophils % Seg Neuts % (Manual) Lymphocytes % (Manual) Monocytes % (Manual) Seg Neutrophils # Seg Neutrophils # Man Lymphocytes # (Manual) Monocytes # (Manual) PT INR APTT Heparin Anti-Xa Level POC ABG pH POC ABG pCO2 POC ABG pO2 Sodium Potassium Chloride Carbon Dioxide BUN 28 H Creatinine 2.4 H D Glucose POC Glucose Lactic Acid Calcium 8.3 L Phosphorus Magnesium 1.50 L Iron 24 L TIBC 160 L AST ALT Alkaline Phosphatase Lactate Dehydrogenase Total Creatine Kinase C-Reactive Protein Total Protein Albumin Prealbumin CA 19-9 Antigen Folate 5.39 L PTH Intact Urine WBC (Auto) Urine Creatinine Urine Chloride Urine Total Protein Fluid Glucose Fluid Total Protein Vancomycin Trough Miscellaneous Test Crossmatch 05/17/18 05/18/18 05/18/18 05:08 05:57 05:57 WBC RBC 2.79 L Hgb 8.3 L Hct 24.0 L MCV MCHC 35 H RDW Plt Count Lymph % (Auto) [place] % (Auto) 11.8 H Lymph # [place] # 0.9 H Seg Neutrophils % Seg Neuts % (Manual) Lymphocytes % (Manual) Monocytes % (Manual) Seg Neutrophils # Seg Neutrophils # Man Lymphocytes # (Manual) Monocytes # (Manual) PT INR APTT Heparin Anti-Xa Level POC ABG pH POC ABG pCO2 POC ABG pO2 Sodium Potassium Chloride Carbon Dioxide BUN Creatinine Glucose POC Glucose Lactic Acid Calcium 7.7 L 8.0 L Phosphorus Magnesium 1.60 L Iron TIBC AST ALT Alkaline Phosphatase Lactate Dehydrogenase Total Creatine Kinase C-Reactive Protein Total Protein Albumin Prealbumin CA 19-9 Antigen Folate PTH Intact Urine WBC (Auto) Urine Creatinine Urine Chloride Urine Total Protein Fluid Glucose Fluid Total Protein Vancomycin Trough Miscellaneous Test Crossmatch 05/19/18 05/19/18 05/20/18 05:33 05:33 05:38 WBC RBC 2.95 L Hgb 8.8 L Hct 25.8 L MCV MCHC RDW Plt Count Lymph % (Auto) 10.1 L [place] % (Auto) Lymph # 1.1 L [place] # Seg Neutrophils % 85.2 H Seg Neuts % (Manual) Lymphocytes % (Manual) Monocytes % (Manual) Seg Neutrophils # 9.0 H Seg Neutrophils # Man Lymphocytes # (Manual) Monocytes # (Manual) PT INR APTT Heparin Anti-Xa Level POC ABG pH POC ABG pCO2 POC ABG pO2 Sodium 135 L Potassium Chloride Carbon Dioxide BUN Creatinine Glucose 132 H POC Glucose Lactic Acid Calcium 7.8 L 8.3 L Phosphorus Magnesium 1.40 L Iron TIBC AST ALT Alkaline Phosphatase Lactate Dehydrogenase Total Creatine Kinase C-Reactive Protein Total Protein Albumin Prealbumin CA 19-9 Antigen Folate PTH Intact Urine WBC (Auto) Urine Creatinine Urine Chloride Urine Total Protein Fluid Glucose Fluid Total Protein Vancomycin Trough Miscellaneous Test Crossmatch 05/21/18 05/21/18 05/22/18 04:46 15:30 06:49 WBC 20.0 H RBC 2.70 L Hgb 7.8 L Hct 23.3 L MCV MCHC RDW Plt Count Lymph % (Auto) [place] % (Auto) Lymph # [place] # Seg Neutrophils % Seg Neuts % (Manual) 85.0 H Lymphocytes % (Manual) 4.0 L Monocytes % (Manual) Seg Neutrophils # Seg Neutrophils # Man 17.0 H Lymphocytes # (Manual) 0.8 L Monocytes # (Manual) PT INR APTT Heparin Anti-Xa Level POC ABG pH POC ABG pCO2 POC ABG pO2 Sodium 135 L Potassium 3.5 L Chloride Carbon Dioxide 21 L BUN 22 H Creatinine Glucose POC Glucose Lactic Acid Calcium 8.1 L Phosphorus Magnesium Iron TIBC AST ALT Alkaline Phosphatase Lactate Dehydrogenase Total Creatine Kinase C-Reactive Protein Total Protein Albumin Prealbumin CA 19-9 Antigen Folate PTH Intact Urine WBC (Auto) 28.0 H Urine Creatinine Urine Chloride Urine Total Protein Fluid Glucose Fluid Total Protein Vancomycin Trough Miscellaneous Test Crossmatch 05/22/18 05/22/18 05/23/18 06:49 11:23 09:03 WBC RBC Hgb Hct MCV MCHC RDW Plt Count Lymph % (Auto) [place] % (Auto) Lymph # [place] # Seg Neutrophils % Seg Neuts % (Manual) Lymphocytes % (Manual) Monocytes % (Manual) Seg Neutrophils # Seg Neutrophils # Man Lymphocytes # (Manual) Monocytes # (Manual) PT INR APTT Heparin Anti-Xa Level POC ABG pH POC ABG pCO2 POC ABG pO2 Sodium 134 L Potassium 3.5 L Chloride Carbon Dioxide 21 L BUN 35 H 36 H Creatinine 1.7 H Glucose 107 H POC Glucose Lactic Acid Calcium 7.9 L Phosphorus Magnesium 2.50 H Iron TIBC AST ALT Alkaline Phosphatase Lactate Dehydrogenase Total Creatine Kinase C-Reactive Protein Total Protein Albumin Prealbumin CA 19-9 Antigen Folate PTH Intact Urine WBC (Auto) Urine Creatinine Urine Chloride Urine Total Protein Fluid Glucose Fluid Total Protein Vancomycin Trough Miscellaneous Test Crossmatch See Detail 05/23/18 05/23/18 05/23/18 09:03 09:03 17:34 WBC 26.3 H RBC 3.57 L Hgb 10.4 L Hct 31.1 L D MCV MCHC RDW Plt Count Lymph % (Auto) [place] % (Auto) Lymph # [place] # Seg Neutrophils % Seg Neuts % (Manual) Lymphocytes % (Manual) Monocytes % (Manual) Seg Neutrophils # Seg Neutrophils # Man Lymphocytes # (Manual) Monocytes # (Manual) PT 18.3 H INR 1.43 H APTT 40.0 H Heparin Anti-Xa Level POC ABG pH POC ABG pCO2 POC ABG pO2 Sodium Potassium Chloride Carbon Dioxide BUN Creatinine Glucose POC Glucose 108 H Lactic Acid Calcium Phosphorus Magnesium Iron TIBC AST ALT Alkaline Phosphatase Lactate Dehydrogenase Total Creatine Kinase C-Reactive Protein Total Protein Albumin Prealbumin CA 19-9 Antigen Folate PTH Intact Urine WBC (Auto) Urine Creatinine Urine Chloride Urine Total Protein Fluid Glucose Fluid Total Protein Vancomycin Trough Miscellaneous Test Crossmatch 05/23/18 05/24/18 05/24/18 21:14 04:43 08:04 WBC RBC Hgb Hct MCV MCHC RDW Plt Count Lymph % (Auto) [place] % (Auto) Lymph # [place] # Seg Neutrophils % Seg Neuts % (Manual) Lymphocytes % (Manual) Monocytes % (Manual) Seg Neutrophils # Seg Neutrophils # Man Lymphocytes # (Manual) Monocytes # (Manual) PT INR APTT Heparin Anti-Xa Level POC ABG pH POC ABG pCO2 POC ABG pO2 Sodium 146 H Potassium Chloride 108.6 H Carbon Dioxide BUN 33 H Creatinine Glucose 109 H POC Glucose 110 H 106 H Lactic Acid Calcium 8.3 L Phosphorus Magnesium 2.50 H Iron TIBC AST ALT Alkaline Phosphatase Lactate Dehydrogenase Total Creatine Kinase C-Reactive Protein Total Protein Albumin Prealbumin CA 19-9 Antigen Folate PTH Intact Urine WBC (Auto) Urine Creatinine Urine Chloride Urine Total Protein Fluid Glucose Fluid Total Protein Vancomycin Trough Miscellaneous Test Crossmatch 05/25/18 05/25/18 05/25/18 05:42 05:49 19:50 WBC RBC Hgb Hct MCV MCHC RDW Plt Count Lymph % (Auto) [place] % (Auto) Lymph # [place] # Seg Neutrophils % Seg Neuts % (Manual) Lymphocytes % (Manual) Monocytes % (Manual) Seg Neutrophils # Seg Neutrophils # Man Lymphocytes # (Manual) Monocytes # (Manual) PT INR APTT Heparin Anti-Xa Level POC ABG pH POC ABG pCO2 POC ABG pO2 Sodium 150 H Potassium Chloride 112.5 H Carbon Dioxide BUN 34 H Creatinine Glucose 102 H POC Glucose 107 H Lactic Acid Calcium Phosphorus Magnesium Iron TIBC AST ALT Alkaline Phosphatase Lactate Dehydrogenase Total Creatine Kinase C-Reactive Protein 34.50 H Total Protein Albumin Prealbumin CA 19-9 Antigen Folate PTH Intact Urine WBC (Auto) Urine Creatinine Urine Chloride Urine Total Protein Fluid Glucose Fluid Total Protein Vancomycin Trough Miscellaneous Test Crossmatch 05/25/18 05/25/18 05/25/18 19:50 21:05 22:46 WBC RBC Hgb Hct MCV MCHC RDW Plt Count Lymph % (Auto) [place] % (Auto) Lymph # [place] # Seg Neutrophils % Seg Neuts % (Manual) Lymphocytes % (Manual) Monocytes % (Manual) Seg Neutrophils # Seg Neutrophils # Man Lymphocytes # (Manual) Monocytes # (Manual) PT INR APTT Heparin Anti-Xa Level POC ABG pH 7.483 H POC ABG pCO2 24.0 L POC ABG pO2 72 L Sodium Potassium Chloride Carbon Dioxide BUN Creatinine Glucose POC Glucose Lactic Acid 5.90 H* Calcium Phosphorus Magnesium Iron TIBC AST ALT Alkaline Phosphatase Lactate Dehydrogenase Total Creatine Kinase C-Reactive Protein Total Protein Albumin Prealbumin CA 19-9 Antigen Folate PTH Intact Urine WBC (Auto) Urine Creatinine Urine Chloride Urine Total Protein Fluid Glucose Fluid Total Protein Vancomycin Trough 25.1 H Miscellaneous Test Crossmatch 05/25/18 05/26/18 05/26/18 22:46 00:21 00:51 WBC RBC Hgb Hct MCV MCHC RDW Plt Count Lymph % (Auto) [place] % (Auto) Lymph # [place] # Seg Neutrophils % Seg Neuts % (Manual) Lymphocytes % (Manual) Monocytes % (Manual) Seg Neutrophils # Seg Neutrophils # Man Lymphocytes # (Manual) Monocytes # (Manual) PT INR APTT Heparin Anti-Xa Level POC ABG pH POC ABG pCO2 POC ABG pO2 Sodium Potassium Chloride Carbon Dioxide BUN Creatinine Glucose POC Glucose 133 H Lactic Acid 8.10 H* 6.20 H* Calcium Phosphorus Magnesium Iron TIBC AST ALT Alkaline Phosphatase Lactate Dehydrogenase Total Creatine Kinase C-Reactive Protein Total Protein Albumin Prealbumin CA 19-9 Antigen Folate PTH Intact Urine WBC (Auto) Urine Creatinine Urine Chloride Urine Total Protein Fluid Glucose Fluid Total Protein Vancomycin Trough Miscellaneous Test Crossmatch 05/26/18 05/26/18 05/26/18 01:13 02:24 02:24 WBC 18.7 H RBC Hgb 11.6 L Hct MCV MCHC RDW Plt Count Lymph % (Auto) [place] % (Auto) Lymph # [place] # Seg Neutrophils % Seg Neuts % (Manual) Lymphocytes % (Manual) Monocytes % (Manual) Seg Neutrophils # Seg Neutrophils # Man Lymphocytes # (Manual) Monocytes # (Manual) PT INR APTT Heparin Anti-Xa Level POC ABG pH POC ABG pCO2 POC ABG pO2 Sodium 147 H Potassium 6.2 H* D Chloride 111.9 H Carbon Dioxide 19 L BUN 80 H Creatinine 5.1 H D Glucose 112 H POC Glucose Lactic Acid 5.20 H* Calcium 6.7 L D Phosphorus Magnesium Iron TIBC AST ALT Alkaline Phosphatase Lactate Dehydrogenase Total Creatine Kinase C-Reactive Protein Total Protein Albumin Prealbumin CA 19-9 Antigen Folate PTH Intact Urine WBC (Auto) Urine Creatinine Urine Chloride Urine Total Protein Fluid Glucose Fluid Total Protein Vancomycin Trough Miscellaneous Test Crossmatch 05/26/18 05/26/18 05/26/18 04:20 04:20 05:39 WBC RBC Hgb Hct MCV MCHC RDW Plt Count Lymph % (Auto) [place] % (Auto) Lymph # [place] # Seg Neutrophils % Seg Neuts % (Manual) Lymphocytes % (Manual) Monocytes % (Manual) Seg Neutrophils # Seg Neutrophils # Man Lymphocytes # (Manual) Monocytes # (Manual) PT INR APTT Heparin Anti-Xa Level POC ABG pH POC ABG pCO2 POC ABG pO2 Sodium 150 H Potassium Chloride 110.0 H Carbon Dioxide 19 L BUN 66 H Creatinine Glucose 166 H POC Glucose 187 H Lactic Acid 5.10 H* Calcium 6.9 L Phosphorus 6.70 H D Magnesium Iron TIBC AST ALT Alkaline Phosphatase Lactate Dehydrogenase Total Creatine Kinase C-Reactive Protein Total Protein Albumin Prealbumin CA 19-9 Antigen Folate PTH Intact Urine WBC (Auto) Urine Creatinine Urine Chloride Urine Total Protein Fluid Glucose Fluid Total Protein Vancomycin Trough Miscellaneous Test Crossmatch 05/26/18 05/26/18 05/26/18 06:02 07:29 11:00 WBC RBC Hgb Hct MCV MCHC RDW Plt Count Lymph % (Auto) [place] % (Auto) Lymph # [place] # Seg Neutrophils % Seg Neuts % (Manual) Lymphocytes % (Manual) Monocytes % (Manual) Seg Neutrophils # Seg Neutrophils # Man Lymphocytes # (Manual) Monocytes # (Manual) PT INR APTT Heparin Anti-Xa Level POC ABG pH POC ABG pCO2 28.8 L POC ABG pO2 Sodium Potassium Chloride Carbon Dioxide BUN Creatinine Glucose POC Glucose Lactic Acid 4.80 H* 3.80 H* Calcium Phosphorus Magnesium Iron TIBC AST ALT Alkaline Phosphatase Lactate Dehydrogenase Total Creatine Kinase C-Reactive Protein Total Protein Albumin Prealbumin CA 19-9 Antigen Folate PTH Intact Urine WBC (Auto) Urine Creatinine Urine Chloride Urine Total Protein Fluid Glucose Fluid Total Protein Vancomycin Trough Miscellaneous Test Crossmatch 05/26/18 05/26/18 05/26/18 11:01 12:28 18:00 WBC RBC Hgb Hct MCV MCHC RDW Plt Count Lymph % (Auto) [place] % (Auto) Lymph # [place] # Seg Neutrophils % Seg Neuts % (Manual) Lymphocytes % (Manual) Monocytes % (Manual) Seg Neutrophils # Seg Neutrophils # Man Lymphocytes # (Manual) Monocytes # (Manual) PT INR APTT Heparin Anti-Xa Level POC ABG pH POC ABG pCO2 POC ABG pO2 Sodium 150 H 151 H Potassium 5.3 H D 6.1 H* Chloride 110.3 H 117.0 H Carbon Dioxide 21 L 20 L BUN 75 H 77 H Creatinine 4.3 H D 4.6 H Glucose 161 H POC Glucose 114 H Lactic Acid Calcium 7.5 L 6.7 L Phosphorus Magnesium Iron TIBC AST 1041 H ALT 406 H Alkaline Phosphatase 281 H Lactate Dehydrogenase Total Creatine Kinase C-Reactive Protein Total Protein 4.4 L Albumin 1.3 L Prealbumin CA 19-9 Antigen Folate PTH Intact Urine WBC (Auto) Urine Creatinine Urine Chloride Urine Total Protein Fluid Glucose Fluid Total Protein Vancomycin Trough Miscellaneous Test Crossmatch 05/26/18 05/26/18 05/27/18 18:02 19:17 01:01 WBC 21.7 H RBC 2.70 L Hgb 7.8 L D Hct 24.6 L D MCV MCHC RDW 15.3 H Plt Count Lymph % (Auto) [place] % (Auto) Lymph # [place] # Seg Neutrophils % Seg Neuts % (Manual) 94.0 H Lymphocytes % (Manual) 3.0 L Monocytes % (Manual) Seg Neutrophils # Seg Neutrophils # Man 20.4 H Lymphocytes # (Manual) 0.7 L Monocytes # (Manual) PT INR APTT Heparin Anti-Xa Level POC ABG pH 7.159 L 7.205 L POC ABG pCO2 54.5 H 53.0 H POC ABG pO2 252 H Sodium Potassium Chloride Carbon Dioxide BUN Creatinine Glucose POC Glucose Lactic Acid Calcium Phosphorus Magnesium Iron TIBC AST ALT Alkaline Phosphatase Lactate Dehydrogenase Total Creatine Kinase C-Reactive Protein Total Protein Albumin Prealbumin CA 19-9 Antigen Folate PTH Intact Urine WBC (Auto) Urine Creatinine Urine Chloride Urine Total Protein Fluid Glucose Fluid Total Protein Vancomycin Trough Miscellaneous Test Crossmatch 05/27/18 05/27/18 05/27/18 05:15 05:15 06:11 WBC 24.9 H RBC 2.86 L Hgb 8.1 L Hct 25.9 L MCV MCHC RDW 15.5 H Plt Count Lymph % (Auto) [place] % (Auto) Lymph # [place] # Seg Neutrophils % Seg Neuts % (Manual) Lymphocytes % (Manual) Monocytes % (Manual) Seg Neutrophils # Seg Neutrophils # Man Lymphocytes # (Manual) Monocytes # (Manual) PT INR APTT Heparin Anti-Xa Level POC ABG pH 7.265 L POC ABG pCO2 46.2 H POC ABG pO2 111 H Sodium 149 H Potassium 6.9 H* Chloride 113.5 H Carbon Dioxide BUN 89 H Creatinine 5.2 H Glucose 118 H POC Glucose Lactic Acid Calcium 7.0 L Phosphorus 9.70 H D Magnesium Iron TIBC AST 876 H ALT 408 H Alkaline Phosphatase Lactate Dehydrogenase Total Creatine Kinase C-Reactive Protein Total Protein 5.2 L Albumin 1.5 L Prealbumin CA 19-9 Antigen Folate PTH Intact Urine WBC (Auto) Urine Creatinine Urine Chloride Urine Total Protein Fluid Glucose Fluid Total Protein Vancomycin Trough Miscellaneous Test Crossmatch 05/27/18 05/27/18 05/27/18 08:48 10:22 10:22 WBC RBC Hgb Hct MCV MCHC RDW Plt Count Lymph % (Auto) [place] % (Auto) Lymph # [place] # Seg Neutrophils % Seg Neuts % (Manual) Lymphocytes % (Manual) Monocytes % (Manual) Seg Neutrophils # Seg Neutrophils # Man Lymphocytes # (Manual) Monocytes # (Manual) PT INR APTT Heparin Anti-Xa Level POC ABG pH POC ABG pCO2 POC ABG pO2 Sodium 146 H Potassium 6.1 H* Chloride 108.2 H Carbon Dioxide 21 L BUN 88 H Creatinine 5.6 H Glucose 163 H POC Glucose 164 H Lactic Acid Calcium 6.7 L Phosphorus Magnesium Iron TIBC AST ALT Alkaline Phosphatase Lactate Dehydrogenase Total Creatine Kinase C-Reactive Protein 40.70 H Total Protein Albumin Prealbumin CA 19-9 Antigen Folate PTH Intact Urine WBC (Auto) Urine Creatinine Urine Chloride Urine Total Protein Fluid Glucose Fluid Total Protein Vancomycin Trough Miscellaneous Test Crossmatch 05/27/18 05/27/18 05/27/18 13:02 17:39 23:27 WBC RBC Hgb Hct MCV MCHC RDW Plt Count Lymph % (Auto) [place] % (Auto) Lymph # [place] # Seg Neutrophils % Seg Neuts % (Manual) Lymphocytes % (Manual) Monocytes % (Manual) Seg Neutrophils # Seg Neutrophils # Man Lymphocytes # (Manual) Monocytes # (Manual) PT INR APTT Heparin Anti-Xa Level POC ABG pH POC ABG pCO2 POC ABG pO2 Sodium Potassium Chloride Carbon Dioxide BUN Creatinine Glucose POC Glucose 59 L 132 H Lactic Acid Calcium Phosphorus Magnesium Iron TIBC AST ALT Alkaline Phosphatase Lactate Dehydrogenase Total Creatine Kinase C-Reactive Protein Total Protein Albumin Prealbumin CA 19-9 Antigen Folate PTH Intact Urine WBC (Auto) Urine Creatinine Urine Chloride Urine Total Protein Fluid Glucose Fluid Total Protein Vancomycin Trough Miscellaneous Test Flexitest 1 H Crossmatch 05/27/18 05/28/18 05/28/18 Unknown 04:32 05:00 WBC RBC Hgb Hct MCV MCHC RDW Plt Count Lymph % (Auto) [place] % (Auto) Lymph # [place] # Seg Neutrophils % Seg Neuts % (Manual) Lymphocytes % (Manual) Monocytes % (Manual) Seg Neutrophils # Seg Neutrophils # Man Lymphocytes # (Manual) Monocytes # (Manual) PT INR APTT Heparin Anti-Xa Level POC ABG pH POC ABG pCO2 POC ABG pO2 134 H Sodium Potassium Chloride Carbon Dioxide BUN 69 H Creatinine 4.4 H Glucose 118 H POC Glucose Lactic Acid Calcium 8.0 L D Phosphorus 6.80 H D Magnesium Iron TIBC AST ALT Alkaline Phosphatase Lactate Dehydrogenase Total Creatine Kinase C-Reactive Protein Total Protein Albumin Prealbumin CA 19-9 Antigen Folate PTH Intact Urine WBC (Auto) 120.0 H Urine Creatinine Urine Chloride Urine Total Protein Fluid Glucose Fluid Total Protein Vancomycin Trough Miscellaneous Test Crossmatch 05/28/18 05/28/18 05/28/18 05:00 05:27 13:04 WBC 26.5 H RBC 2.69 L Hgb 7.7 L Hct 23.6 L MCV MCHC RDW Plt Count Lymph % (Auto) [place] % (Auto) Lymph # [place] # Seg Neutrophils % Seg Neuts % (Manual) 96.0 H Lymphocytes % (Manual) 0 L Monocytes % (Manual) Seg Neutrophils # Seg Neutrophils # Man 25.4 H Lymphocytes # (Manual) 0.0 L Monocytes # (Manual) PT INR APTT Heparin Anti-Xa Level POC ABG pH POC ABG pCO2 POC ABG pO2 Sodium Potassium Chloride Carbon Dioxide BUN Creatinine Glucose POC Glucose 128 H 155 H Lactic Acid Calcium Phosphorus Magnesium Iron TIBC AST ALT Alkaline Phosphatase Lactate Dehydrogenase Total Creatine Kinase C-Reactive Protein Total Protein Albumin Prealbumin CA 19-9 Antigen Folate PTH Intact Urine WBC (Auto) Urine Creatinine Urine Chloride Urine Total Protein Fluid Glucose Fluid Total Protein Vancomycin Trough Miscellaneous Test Crossmatch 05/28/18 05/29/18 05/29/18 17:56 03:35 04:00 WBC RBC Hgb Hct MCV MCHC RDW Plt Count Lymph % (Auto) [place] % (Auto) Lymph # [place] # Seg Neutrophils % Seg Neuts % (Manual) Lymphocytes % (Manual) Monocytes % (Manual) Seg Neutrophils # Seg Neutrophils # Man Lymphocytes # (Manual) Monocytes # (Manual) PT INR APTT Heparin Anti-Xa Level POC ABG pH 7.471 H POC ABG pCO2 POC ABG pO2 78 L Sodium Potassium Chloride Carbon Dioxide BUN 50 H Creatinine 3.9 H Glucose POC Glucose 110 H Lactic Acid Calcium 7.7 L Phosphorus Magnesium 1.50 L Iron TIBC AST 218 H ALT 204 H Alkaline Phosphatase Lactate Dehydrogenase Total Creatine Kinase C-Reactive Protein Total Protein 5.4 L Albumin 1.6 L Prealbumin CA 19-9 Antigen Folate PTH Intact Urine WBC (Auto) Urine Creatinine Urine Chloride Urine Total Protein Fluid Glucose Fluid Total Protein Vancomycin Trough Miscellaneous Test Crossmatch 05/29/18 05/29/18 05/30/18 11:51 23:56 04:54 WBC RBC Hgb Hct MCV MCHC RDW Plt Count Lymph % (Auto) [place] % (Auto) Lymph # [place] # Seg Neutrophils % Seg Neuts % (Manual) Lymphocytes % (Manual) Monocytes % (Manual) Seg Neutrophils # Seg Neutrophils # Man Lymphocytes # (Manual) Monocytes # (Manual) PT INR APTT Heparin Anti-Xa Level POC ABG pH POC ABG pCO2 POC ABG pO2 Sodium Potassium Chloride Carbon Dioxide BUN Creatinine Glucose POC Glucose 131 H 119 H 115 H Lactic Acid Calcium Phosphorus Magnesium Iron TIBC AST ALT Alkaline Phosphatase Lactate Dehydrogenase Total Creatine Kinase C-Reactive Protein Total Protein Albumin Prealbumin CA 19-9 Antigen Folate PTH Intact Urine WBC (Auto) Urine Creatinine Urine Chloride Urine Total Protein Fluid Glucose Fluid Total Protein Vancomycin Trough Miscellaneous Test Crossmatch 05/30/18 05/30/18 05/30/18 05:07 05:15 05:15 WBC 16.2 H RBC 2.53 L Hgb 7.4 L Hct 21.9 L MCV MCHC RDW Plt Count Lymph % (Auto) [place] % (Auto) Lymph # [place] # Seg Neutrophils % Seg Neuts % (Manual) Lymphocytes % (Manual) Monocytes % (Manual) Seg Neutrophils # Seg Neutrophils # Man Lymphocytes # (Manual) Monocytes # (Manual) PT INR APTT Heparin Anti-Xa Level POC ABG pH POC ABG pCO2 34.5 L POC ABG pO2 133 H Sodium 135 L Potassium Chloride 97.5 L Carbon Dioxide BUN 69 H Creatinine 5.4 H Glucose 105 H POC Glucose Lactic Acid Calcium 7.5 L Phosphorus 5.30 H D Magnesium Iron TIBC AST ALT Alkaline Phosphatase Lactate Dehydrogenase Total Creatine Kinase C-Reactive Protein Total Protein Albumin Prealbumin CA 19-9 Antigen Folate PTH Intact Urine WBC (Auto) Urine Creatinine Urine Chloride Urine Total Protein Fluid Glucose Fluid Total Protein Vancomycin Trough Miscellaneous Test Crossmatch 05/30/18 05/30/18 05/31/18 12:13 17:10 04:50 WBC 18.7 H RBC 2.86 L Hgb 8.2 L Hct 24.8 L MCV MCHC RDW Plt Count Lymph % (Auto) [place] % (Auto) Lymph # [place] # Seg Neutrophils % Seg Neuts % (Manual) 91.0 H Lymphocytes % (Manual) 2.0 L Monocytes % (Manual) Seg Neutrophils # Seg Neutrophils # Man 17.0 H Lymphocytes # (Manual) 0.4 L Monocytes # (Manual) PT INR APTT Heparin Anti-Xa Level POC ABG pH POC ABG pCO2 POC ABG pO2 Sodium Potassium Chloride Carbon Dioxide BUN Creatinine Glucose POC Glucose 132 H 122 H Lactic Acid Calcium Phosphorus Magnesium Iron TIBC AST ALT Alkaline Phosphatase Lactate Dehydrogenase Total Creatine Kinase C-Reactive Protein Total Protein Albumin Prealbumin CA 19-9 Antigen Folate PTH Intact Urine WBC (Auto) Urine Creatinine Urine Chloride Urine Total Protein Fluid Glucose Fluid Total Protein Vancomycin Trough Miscellaneous Test Crossmatch 05/31/18 05/31/18 05/31/18 04:50 05:45 11:37 WBC RBC Hgb Hct MCV MCHC RDW Plt Count Lymph % (Auto) [place] % (Auto) Lymph # [place] # Seg Neutrophils % Seg Neuts % (Manual) Lymphocytes % (Manual) Monocytes % (Manual) Seg Neutrophils # Seg Neutrophils # Man Lymphocytes # (Manual) Monocytes # (Manual) PT INR APTT Heparin Anti-Xa Level POC ABG pH POC ABG pCO2 POC ABG pO2 Sodium 132 L Potassium Chloride 92.4 L Carbon Dioxide BUN 77 H Creatinine 5.9 H Glucose POC Glucose 111 H 136 H Lactic Acid Calcium 7.3 L Phosphorus 6.40 H D Magnesium Iron TIBC AST ALT Alkaline Phosphatase Lactate Dehydrogenase Total Creatine Kinase C-Reactive Protein Total Protein Albumin Prealbumin CA 19-9 Antigen Folate PTH Intact Urine WBC (Auto) Urine Creatinine Urine Chloride Urine Total Protein Fluid Glucose Fluid Total Protein Vancomycin Trough Miscellaneous Test Crossmatch 05/31/18 06/01/18 06/01/18 17:52 00:09 04:00 WBC RBC Hgb Hct MCV MCHC RDW Plt Count Lymph % (Auto) [place] % (Auto) Lymph # [place] # Seg Neutrophils % Seg Neuts % (Manual) Lymphocytes % (Manual) Monocytes % (Manual) Seg Neutrophils # Seg Neutrophils # Man Lymphocytes # (Manual) Monocytes # (Manual) PT INR APTT Heparin Anti-Xa Level POC ABG pH POC ABG pCO2 POC ABG pO2 Sodium Potassium Chloride 97.5 L Carbon Dioxide BUN 49 H Creatinine 4.2 H Glucose 104 H POC Glucose 115 H 114 H Lactic Acid Calcium 7.3 L Phosphorus 4.70 H D Magnesium Iron TIBC AST ALT Alkaline Phosphatase Lactate Dehydrogenase Total Creatine Kinase C-Reactive Protein Total Protein Albumin Prealbumin CA 19-9 Antigen Folate PTH Intact Urine WBC (Auto) Urine Creatinine Urine Chloride Urine Total Protein Fluid Glucose Fluid Total Protein Vancomycin Trough Miscellaneous Test Crossmatch 06/01/18 06/01/18 06/02/18 11:10 17:56 00:15 WBC RBC Hgb Hct MCV MCHC RDW Plt Count Lymph % (Auto) [place] % (Auto) Lymph # [place] # Seg Neutrophils % Seg Neuts % (Manual) Lymphocytes % (Manual) Monocytes % (Manual) Seg Neutrophils # Seg Neutrophils # Man Lymphocytes # (Manual) Monocytes # (Manual) PT INR APTT Heparin Anti-Xa Level POC ABG pH POC ABG pCO2 POC ABG pO2 Sodium Potassium Chloride Carbon Dioxide BUN Creatinine Glucose POC Glucose 123 H 126 H 135 H Lactic Acid Calcium Phosphorus Magnesium Iron TIBC AST ALT Alkaline Phosphatase Lactate Dehydrogenase Total Creatine Kinase C-Reactive Protein Total Protein Albumin Prealbumin CA 19-9 Antigen Folate PTH Intact Urine WBC (Auto) Urine Creatinine Urine Chloride Urine Total Protein Fluid Glucose Fluid Total Protein Vancomycin Trough Miscellaneous Test Crossmatch 06/02/18 06/02/18 06/02/18 05:23 12:42 13:05 WBC RBC Hgb Hct MCV MCHC RDW Plt Count Lymph % (Auto) [place] % (Auto) Lymph # [place] # Seg Neutrophils % Seg Neuts % (Manual) Lymphocytes % (Manual) Monocytes % (Manual) Seg Neutrophils # Seg Neutrophils # Man Lymphocytes # (Manual) Monocytes # (Manual) PT 17.1 H INR 1.34 H APTT Heparin Anti-Xa Level POC ABG pH POC ABG pCO2 POC ABG pO2 Sodium Potassium Chloride Carbon Dioxide BUN Creatinine Glucose POC Glucose 135 H 142 H Lactic Acid Calcium Phosphorus Magnesium Iron TIBC AST ALT Alkaline Phosphatase Lactate Dehydrogenase Total Creatine Kinase C-Reactive Protein Total Protein Albumin Prealbumin CA 19-9 Antigen Folate PTH Intact Urine WBC (Auto) Urine Creatinine Urine Chloride Urine Total Protein Fluid Glucose Fluid Total Protein Vancomycin Trough Miscellaneous Test Crossmatch 06/02/18 06/02/18 06/03/18 Unknown Unknown 00:54 WBC 20.8 H RBC 2.67 L Hgb 7.7 L Hct 23.0 L MCV MCHC RDW Plt Count 500 H Lymph % (Auto) [place] % (Auto) Lymph # [place] # Seg Neutrophils % Seg Neuts % (Manual) Lymphocytes % (Manual) Monocytes % (Manual) Seg Neutrophils # Seg Neutrophils # Man Lymphocytes # (Manual) Monocytes # (Manual) PT INR APTT Heparin Anti-Xa Level POC ABG pH POC ABG pCO2 POC ABG pO2 Sodium 136 L Potassium 3.5 L Chloride 96.9 L Carbon Dioxide BUN 62 H Creatinine 4.9 H Glucose 133 H POC Glucose 125 H Lactic Acid Calcium 7.2 L Phosphorus 5.00 H Magnesium Iron TIBC AST 46 H ALT 66 H Alkaline Phosphatase Lactate Dehydrogenase Total Creatine Kinase C-Reactive Protein Total Protein 5.7 L Albumin 1.5 L Prealbumin CA 19-9 Antigen Folate PTH Intact Urine WBC (Auto) Urine Creatinine Urine Chloride Urine Total Protein Fluid Glucose Fluid Total Protein Vancomycin Trough Miscellaneous Test Crossmatch 06/03/18 06/03/18 06/03/18 03:31 09:18 09:18 WBC RBC Hgb Hct MCV MCHC RDW Plt Count Lymph % (Auto) [place] % (Auto) Lymph # [place] # Seg Neutrophils % Seg Neuts % (Manual) Lymphocytes % (Manual) Monocytes % (Manual) Seg Neutrophils # Seg Neutrophils # Man Lymphocytes # (Manual) Monocytes # (Manual) PT 17.1 H INR 1.34 H APTT Heparin Anti-Xa Level POC ABG pH POC ABG pCO2 POC ABG pO2 Sodium 136 L Potassium Chloride Carbon Dioxide BUN 41 H Creatinine 3.4 H Glucose 129 H POC Glucose Lactic Acid Calcium 7.4 L Phosphorus Magnesium Iron TIBC AST ALT Alkaline Phosphatase Lactate Dehydrogenase Total Creatine Kinase C-Reactive Protein 11.10 H Total Protein Albumin Prealbumin CA 19-9 Antigen Folate PTH Intact Urine WBC (Auto) Urine Creatinine Urine Chloride Urine Total Protein Fluid Glucose Fluid Total Protein Vancomycin Trough Miscellaneous Test Crossmatch 06/03/18 06/03/18 06/03/18 16:07 21:18 Unknown WBC RBC Hgb Hct MCV MCHC RDW Plt Count Lymph % (Auto) [place] % (Auto) Lymph # [place] # Seg Neutrophils % Seg Neuts % (Manual) Lymphocytes % (Manual) Monocytes % (Manual) Seg Neutrophils # Seg Neutrophils # Man Lymphocytes # (Manual) Monocytes # (Manual) PT INR APTT Heparin Anti-Xa Level POC ABG pH POC ABG pCO2 POC ABG pO2 Sodium Potassium Chloride Carbon Dioxide BUN Creatinine Glucose POC Glucose 144 H 128 H Lactic Acid Calcium Phosphorus Magnesium Iron TIBC AST ALT Alkaline Phosphatase Lactate Dehydrogenase Total Creatine Kinase C-Reactive Protein Total Protein Albumin Prealbumin CA 19-9 Antigen Folate PTH Intact Urine WBC (Auto) Urine Creatinine Urine Chloride Urine Total Protein Fluid Glucose 10 L Fluid Total Protein 3.7 L Vancomycin Trough Miscellaneous Test Crossmatch 06/04/18 06/04/18 06/04/18 04:31 06:14 11:38 WBC RBC Hgb Hct MCV MCHC RDW Plt Count Lymph % (Auto) [place] % (Auto) Lymph # [place] # Seg Neutrophils % Seg Neuts % (Manual) Lymphocytes % (Manual) Monocytes % (Manual) Seg Neutrophils # Seg Neutrophils # Man Lymphocytes # (Manual) Monocytes # (Manual) PT INR APTT Heparin Anti-Xa Level POC ABG pH POC ABG pCO2 POC ABG pO2 Sodium Potassium Chloride Carbon Dioxide BUN 55 H Creatinine 3.7 H Glucose 151 H POC Glucose 145 H 129 H Lactic Acid Calcium 7.8 L Phosphorus 4.60 H Magnesium Iron TIBC AST ALT Alkaline Phosphatase Lactate Dehydrogenase Total Creatine Kinase C-Reactive Protein Total Protein Albumin Prealbumin CA 19-9 Antigen Folate PTH Intact Urine WBC (Auto) Urine Creatinine Urine Chloride Urine Total Protein Fluid Glucose Fluid Total Protein Vancomycin Trough Miscellaneous Test Crossmatch 06/04/18 06/04/18 06/04/18 17:09 20:00 21:29 WBC RBC Hgb 8.8 L Hct 27.3 L MCV MCHC RDW Plt Count Lymph % (Auto) [place] % (Auto) Lymph # [place] # Seg Neutrophils % Seg Neuts % (Manual) Lymphocytes % (Manual) Monocytes % (Manual) Seg Neutrophils # Seg Neutrophils # Man Lymphocytes # (Manual) Monocytes # (Manual) PT INR APTT Heparin Anti-Xa Level POC ABG pH POC ABG pCO2 POC ABG pO2 Sodium Potassium Chloride Carbon Dioxide BUN Creatinine Glucose POC Glucose 142 H 130 H Lactic Acid Calcium Phosphorus Magnesium Iron TIBC AST ALT Alkaline Phosphatase Lactate Dehydrogenase Total Creatine Kinase C-Reactive Protein Total Protein Albumin Prealbumin CA 19-9 Antigen Folate PTH Intact Urine WBC (Auto) Urine Creatinine Urine Chloride Urine Total Protein Fluid Glucose Fluid Total Protein Vancomycin Trough Miscellaneous Test Crossmatch 06/05/18 06/05/18 06/05/18 06:30 07:00 07:00 WBC 19.3 H RBC 2.94 L Hgb 8.3 L Hct 25.6 L MCV MCHC RDW 15.7 H Plt Count 568 H Lymph % (Auto) 4.7 L [place] % (Auto) Lymph # 0.9 L [place] # 1.1 H Seg Neutrophils % 88.9 H Seg Neuts % (Manual) Lymphocytes % (Manual) Monocytes % (Manual) Seg Neutrophils # 17.2 H Seg Neutrophils # Man Lymphocytes # (Manual) Monocytes # (Manual) PT INR APTT Heparin Anti-Xa Level POC ABG pH POC ABG pCO2 POC ABG pO2 Sodium Potassium 3.4 L D Chloride Carbon Dioxide BUN 67 H Creatinine 3.6 H Glucose 145 H POC Glucose 153 H Lactic Acid Calcium 7.9 L Phosphorus 4.60 H Magnesium Iron TIBC AST ALT Alkaline Phosphatase Lactate Dehydrogenase Total Creatine Kinase C-Reactive Protein Total Protein Albumin Prealbumin CA 19-9 Antigen Folate PTH Intact Urine WBC (Auto) Urine Creatinine Urine Chloride Urine Total Protein Fluid Glucose Fluid Total Protein Vancomycin Trough Miscellaneous Test Crossmatch 06/05/18 06/05/18 06/06/18 12:10 16:01 06:39 WBC RBC Hgb Hct MCV MCHC RDW Plt Count Lymph % (Auto) [place] % (Auto) Lymph # [place] # Seg Neutrophils % Seg Neuts % (Manual) Lymphocytes % (Manual) Monocytes % (Manual) Seg Neutrophils # Seg Neutrophils # Man Lymphocytes # (Manual) Monocytes # (Manual) PT INR APTT Heparin Anti-Xa Level POC ABG pH POC ABG pCO2 POC ABG pO2 Sodium Potassium Chloride Carbon Dioxide BUN Creatinine Glucose POC Glucose 150 H 129 H 131 H Lactic Acid Calcium Phosphorus Magnesium Iron TIBC AST ALT Alkaline Phosphatase Lactate Dehydrogenase Total Creatine Kinase C-Reactive Protein Total Protein Albumin Prealbumin CA 19-9 Antigen Folate PTH Intact Urine WBC (Auto) Urine Creatinine Urine Chloride Urine Total Protein Fluid Glucose Fluid Total Protein Vancomycin Trough Miscellaneous Test Crossmatch 06/06/18 06/06/18 06/06/18 07:14 07:14 07:14 WBC 16.5 H RBC 2.84 L Hgb 8.1 L Hct 25.2 L MCV MCHC RDW 16.4 H Plt Count 526 H Lymph % (Auto) 6.5 L [place] % (Auto) Lymph # 1.1 L [place] # 1.2 H Seg Neutrophils % 85.3 H Seg Neuts % (Manual) Lymphocytes % (Manual) Monocytes % (Manual) Seg Neutrophils # 14.1 H Seg Neutrophils # Man Lymphocytes # (Manual) Monocytes # (Manual) PT INR APTT Heparin Anti-Xa Level POC ABG pH POC ABG pCO2 POC ABG pO2 Sodium Potassium Chloride 109.1 H Carbon Dioxide 21 L BUN 76 H Creatinine 3.5 H Glucose 111 H POC Glucose Lactic Acid Calcium 8.1 L Phosphorus Magnesium Iron TIBC AST ALT Alkaline Phosphatase Lactate Dehydrogenase Total Creatine Kinase C-Reactive Protein 4.70 H Total Protein Albumin Prealbumin CA 19-9 Antigen Folate PTH Intact Urine WBC (Auto) Urine Creatinine Urine Chloride Urine Total Protein Fluid Glucose Fluid Total Protein Vancomycin Trough Miscellaneous Test Crossmatch 06/06/18 06/06/18 06/06/18 11:15 18:00 23:58 WBC RBC Hgb Hct MCV MCHC RDW Plt Count Lymph % (Auto) [place] % (Auto) Lymph # [place] # Seg Neutrophils % Seg Neuts % (Manual) Lymphocytes % (Manual) Monocytes % (Manual) Seg Neutrophils # Seg Neutrophils # Man Lymphocytes # (Manual) Monocytes # (Manual) PT INR APTT Heparin Anti-Xa Level POC ABG pH POC ABG pCO2 POC ABG pO2 Sodium Potassium Chloride Carbon Dioxide BUN Creatinine Glucose POC Glucose 127 H 130 H 114 H Lactic Acid Calcium Phosphorus Magnesium Iron TIBC AST ALT Alkaline Phosphatase Lactate Dehydrogenase Total Creatine Kinase C-Reactive Protein Total Protein Albumin Prealbumin CA 19-9 Antigen Folate PTH Intact Urine WBC (Auto) Urine Creatinine Urine Chloride Urine Total Protein Fluid Glucose Fluid Total Protein Vancomycin Trough Miscellaneous Test Crossmatch 06/07/18 06/07/18 06/07/18 05:45 05:45 05:54 WBC 15.5 H RBC 2.60 L Hgb 7.4 L Hct 23.1 L MCV MCHC RDW 16.5 H Plt Count 506 H Lymph % (Auto) 5.3 L [place] % (Auto) Lymph # 0.8 L [place] # 1.0 H Seg Neutrophils % 86.6 H Seg Neuts % (Manual) Lymphocytes % (Manual) Monocytes % (Manual) Seg Neutrophils # 13.4 H Seg Neutrophils # Man Lymphocytes # (Manual) Monocytes # (Manual) PT INR APTT Heparin Anti-Xa Level POC ABG pH POC ABG pCO2 POC ABG pO2 Sodium Potassium Chloride 108.4 H Carbon Dioxide BUN 84 H Creatinine 3.5 H Glucose 119 H POC Glucose 114 H Lactic Acid Calcium 8.1 L Phosphorus 5.10 H Magnesium Iron TIBC AST ALT Alkaline Phosphatase Lactate Dehydrogenase Total Creatine Kinase C-Reactive Protein Total Protein Albumin Prealbumin CA 19-9 Antigen Folate PTH Intact Urine WBC (Auto) Urine Creatinine Urine Chloride Urine Total Protein Fluid Glucose Fluid Total Protein Vancomycin Trough Miscellaneous Test Crossmatch 06/07/18 06/08/18 06/08/18 12:15 05:05 05:24 WBC RBC Hgb Hct MCV MCHC RDW Plt Count Lymph % (Auto) [place] % (Auto) Lymph # [place] # Seg Neutrophils % Seg Neuts % (Manual) Lymphocytes % (Manual) Monocytes % (Manual) Seg Neutrophils # Seg Neutrophils # Man Lymphocytes # (Manual) Monocytes # (Manual) PT INR APTT Heparin Anti-Xa Level POC ABG pH POC ABG pCO2 POC ABG pO2 Sodium 148 H Potassium Chloride 112.4 H Carbon Dioxide BUN 89 H Creatinine 3.4 H Glucose 120 H POC Glucose 148 H 115 H Lactic Acid Calcium 7.9 L Phosphorus Magnesium Iron TIBC AST ALT Alkaline Phosphatase Lactate Dehydrogenase Total Creatine Kinase C-Reactive Protein Total Protein Albumin Prealbumin CA 19-9 Antigen Folate PTH Intact Urine WBC (Auto) Urine Creatinine Urine Chloride Urine Total Protein Fluid Glucose Fluid Total Protein Vancomycin Trough Miscellaneous Test Crossmatch 06/08/18 06/08/18 06/08/18 21:36 21:43 21:43 WBC RBC 2.98 L Hgb 8.8 L Hct 26.6 L MCV MCHC RDW 16.7 H Plt Count 463 H Lymph % (Auto) 7.9 L [place] % (Auto) Lymph # 0.8 L [place] # Seg Neutrophils % 84.8 H Seg Neuts % (Manual) Lymphocytes % (Manual) Monocytes % (Manual) Seg Neutrophils # 8.6 H Seg Neutrophils # Man Lymphocytes # (Manual) Monocytes # (Manual) PT INR APTT Heparin Anti-Xa Level POC ABG pH POC ABG pCO2 POC ABG pO2 Sodium Potassium Chloride Carbon Dioxide BUN Creatinine Glucose POC Glucose Lactic Acid Calcium Phosphorus Magnesium Iron TIBC AST ALT Alkaline Phosphatase Lactate Dehydrogenase 297 H Total Creatine Kinase C-Reactive Protein Total Protein Albumin Prealbumin CA 19-9 Antigen 57 H Folate PTH Intact Urine WBC (Auto) Urine Creatinine Urine Chloride Urine Total Protein Fluid Glucose Fluid Total Protein Vancomycin Trough Miscellaneous Test Crossmatch 06/09/18 06/09/18 06/09/18 00:05 05:34 05:50 WBC RBC Hgb Hct MCV MCHC RDW Plt Count Lymph % (Auto) [place] % (Auto) Lymph # [place] # Seg Neutrophils % Seg Neuts % (Manual) Lymphocytes % (Manual) Monocytes % (Manual) Seg Neutrophils # Seg Neutrophils # Man Lymphocytes # (Manual) Monocytes # (Manual) PT INR APTT Heparin Anti-Xa Level POC ABG pH POC ABG pCO2 POC ABG pO2 Sodium 153 H Potassium Chloride 117.3 H Carbon Dioxide BUN 84 H Creatinine 3.2 H Glucose 117 H POC Glucose 140 H 146 H Lactic Acid Calcium 7.9 L Phosphorus Magnesium Iron TIBC AST ALT Alkaline Phosphatase Lactate Dehydrogenase Total Creatine Kinase C-Reactive Protein Total Protein Albumin Prealbumin CA 19-9 Antigen Folate PTH Intact Urine WBC (Auto) Urine Creatinine Urine Chloride Urine Total Protein Fluid Glucose Fluid Total Protein Vancomycin Trough Miscellaneous Test Crossmatch 06/09/18 06/09/18 06/09/18 05:50 07:37 10:34 WBC RBC 2.32 L Hgb 6.8 L Hct 20.7 L MCV MCHC RDW 16.7 H Plt Count Lymph % (Auto) [place] % (Auto) Lymph # [place] # Seg Neutrophils % Seg Neuts % (Manual) Lymphocytes % (Manual) Monocytes % (Manual) Seg Neutrophils # Seg Neutrophils # Man Lymphocytes # (Manual) Monocytes # (Manual) PT INR APTT Heparin Anti-Xa Level POC ABG pH POC ABG pCO2 POC ABG pO2 Sodium 149 H Potassium Chloride 114.6 H Carbon Dioxide BUN 84 H Creatinine 3.1 H Glucose 137 H POC Glucose Lactic Acid Calcium 7.7 L Phosphorus Magnesium Iron TIBC AST ALT Alkaline Phosphatase Lactate Dehydrogenase Total Creatine Kinase C-Reactive Protein Total Protein Albumin Prealbumin CA 19-9 Antigen Folate PTH Intact Urine WBC (Auto) Urine Creatinine Urine Chloride Urine Total Protein Fluid Glucose Fluid Total Protein Vancomycin Trough Miscellaneous Test Flexitest 1 H Crossmatch 06/09/18 06/09/18 06/09/18 10:41 11:56 13:24 WBC RBC 2.43 L Hgb 7.2 L Hct 21.6 L MCV MCHC RDW 16.8 H Plt Count Lymph % (Auto) [place] % (Auto) Lymph # [place] # Seg Neutrophils % Seg Neuts % (Manual) Lymphocytes % (Manual) Monocytes % (Manual) Seg Neutrophils # Seg Neutrophils # Man Lymphocytes # (Manual) Monocytes # (Manual) PT INR APTT Heparin Anti-Xa Level POC ABG pH POC ABG pCO2 POC ABG pO2 Sodium Potassium Chloride Carbon Dioxide BUN Creatinine Glucose POC Glucose 141 H Lactic Acid Calcium Phosphorus Magnesium Iron TIBC AST ALT Alkaline Phosphatase Lactate Dehydrogenase Total Creatine Kinase C-Reactive Protein Total Protein Albumin Prealbumin CA 19-9 Antigen Folate PTH Intact Urine WBC (Auto) Urine Creatinine Urine Chloride Urine Total Protein Fluid Glucose Fluid Total Protein Vancomycin Trough Miscellaneous Test Crossmatch See Detail 06/09/18 06/09/18 06/10/18 18:18 23:13 05:26 WBC RBC Hgb Hct MCV MCHC RDW Plt Count Lymph % (Auto) [place] % (Auto) Lymph # [place] # Seg Neutrophils % Seg Neuts % (Manual) Lymphocytes % (Manual) Monocytes % (Manual) Seg Neutrophils # Seg Neutrophils # Man Lymphocytes # (Manual) Monocytes # (Manual) PT INR APTT Heparin Anti-Xa Level POC ABG pH POC ABG pCO2 POC ABG pO2 Sodium 148 H Potassium Chloride 114.7 H Carbon Dioxide 21 L BUN 79 H Creatinine 3.2 H Glucose 121 H POC Glucose 156 H 163 H Lactic Acid Calcium 7.8 L Phosphorus Magnesium 1.60 L Iron TIBC AST ALT Alkaline Phosphatase Lactate Dehydrogenase Total Creatine Kinase C-Reactive Protein Total Protein Albumin Prealbumin CA 19-9 Antigen Folate PTH Intact Urine WBC (Auto) Urine Creatinine Urine Chloride Urine Total Protein Fluid Glucose Fluid Total Protein Vancomycin Trough Miscellaneous Test Crossmatch 06/10/18 06/10/18 06/10/18 05:26 05:31 17:15 WBC 11.1 H RBC 3.07 L Hgb 9.1 L Hct 27.6 L D MCV MCHC RDW 17.4 H Plt Count Lymph % (Auto) [place] % (Auto) Lymph # [place] # Seg Neutrophils % Seg Neuts % (Manual) Lymphocytes % (Manual) Monocytes % (Manual) Seg Neutrophils # Seg Neutrophils # Man Lymphocytes # (Manual) Monocytes # (Manual) PT INR APTT Heparin Anti-Xa Level POC ABG pH POC ABG pCO2 POC ABG pO2 Sodium Potassium Chloride Carbon Dioxide BUN Creatinine Glucose POC Glucose 128 H Lactic Acid Calcium Phosphorus Magnesium Iron TIBC AST ALT Alkaline Phosphatase Lactate Dehydrogenase Total Creatine Kinase C-Reactive Protein 3.60 H Total Protein Albumin Prealbumin CA 19-9 Antigen Folate PTH Intact Urine WBC (Auto) Urine Creatinine Urine Chloride Urine Total Protein Fluid Glucose Fluid Total Protein Vancomycin Trough Miscellaneous Test Crossmatch 06/11/18 06/11/18 06/11/18 01:13 05:41 05:41 WBC 14.6 H RBC 3.40 L Hgb 9.8 L Hct 30.7 L MCV MCHC RDW 18.1 H Plt Count Lymph % (Auto) [place] % (Auto) Lymph # [place] # Seg Neutrophils % Seg Neuts % (Manual) Lymphocytes % (Manual) Monocytes % (Manual) Seg Neutrophils # Seg Neutrophils # Man Lymphocytes # (Manual) Monocytes # (Manual) PT INR APTT Heparin Anti-Xa Level POC ABG pH POC ABG pCO2 POC ABG pO2 Sodium Potassium Chloride 110.8 H Carbon Dioxide 18 L BUN 77 H Creatinine 3.0 H Glucose 116 H POC Glucose 126 H Lactic Acid Calcium 7.9 L Phosphorus Magnesium Iron TIBC AST ALT Alkaline Phosphatase Lactate Dehydrogenase Total Creatine Kinase C-Reactive Protein Total Protein Albumin Prealbumin CA 19-9 Antigen Folate PTH Intact Urine WBC (Auto) Urine Creatinine Urine Chloride Urine Total Protein Fluid Glucose Fluid Total Protein Vancomycin Trough Miscellaneous Test Crossmatch 06/11/18 06/11/18 06/11/18 06:20 07:41 07:41 WBC RBC Hgb Hct MCV MCHC RDW Plt Count Lymph % (Auto) [place] % (Auto) Lymph # [place] # Seg Neutrophils % Seg Neuts % (Manual) Lymphocytes % (Manual) Monocytes % (Manual) Seg Neutrophils # Seg Neutrophils # Man Lymphocytes # (Manual) Monocytes # (Manual) PT INR APTT Heparin Anti-Xa Level POC ABG pH POC ABG pCO2 POC ABG pO2 Sodium Potassium Chloride Carbon Dioxide BUN Creatinine Glucose POC Glucose 136 H Lactic Acid Calcium Phosphorus Magnesium Iron TIBC AST ALT Alkaline Phosphatase Lactate Dehydrogenase Total Creatine Kinase C-Reactive Protein Total Protein Albumin Prealbumin CA 19-9 Antigen Folate PTH Intact Urine WBC (Auto) 10.0 H Urine Creatinine 41.2 H Urine Chloride 49.2 L Urine Total Protein 142 H Fluid Glucose Fluid Total Protein Vancomycin Trough Miscellaneous Test Crossmatch 06/11/18 06/12/18 06/12/18 18:35 00:34 04:12 WBC RBC 3.18 L Hgb 9.5 L Hct 28.7 L MCV MCHC RDW 18.5 H Plt Count Lymph % (Auto) 8.1 L [place] % (Auto) Lymph # 0.9 L [place] # Seg Neutrophils % 84.6 H Seg Neuts % (Manual) Lymphocytes % (Manual) Monocytes % (Manual) Seg Neutrophils # 9.1 H Seg Neutrophils # Man Lymphocytes # (Manual) Monocytes # (Manual) PT INR APTT Heparin Anti-Xa Level POC ABG pH POC ABG pCO2 POC ABG pO2 Sodium Potassium Chloride Carbon Dioxide BUN Creatinine Glucose POC Glucose 125 H 129 H Lactic Acid Calcium Phosphorus Magnesium Iron TIBC AST ALT Alkaline Phosphatase Lactate Dehydrogenase Total Creatine Kinase C-Reactive Protein Total Protein Albumin Prealbumin CA 19-9 Antigen Folate PTH Intact Urine WBC (Auto) Urine Creatinine Urine Chloride Urine Total Protein Fluid Glucose Fluid Total Protein Vancomycin Trough Miscellaneous Test Crossmatch 06/12/18 06/12/18 06/12/18 04:12 06:30 11:43 WBC RBC Hgb Hct MCV MCHC RDW Plt Count Lymph % (Auto) [place] % (Auto) Lymph # [place] # Seg Neutrophils % Seg Neuts % (Manual) Lymphocytes % (Manual) Monocytes % (Manual) Seg Neutrophils # Seg Neutrophils # Man Lymphocytes # (Manual) Monocytes # (Manual) PT INR APTT Heparin Anti-Xa Level POC ABG pH POC ABG pCO2 POC ABG pO2 Sodium Potassium Chloride 108.5 H Carbon Dioxide 21 L BUN 72 H Creatinine 3.0 H Glucose 122 H POC Glucose 129 H 126 H Lactic Acid Calcium 7.8 L Phosphorus Magnesium Iron TIBC AST 45 H ALT Alkaline Phosphatase 200 H Lactate Dehydrogenase Total Creatine Kinase 34 L C-Reactive Protein Total Protein Albumin 1.7 L Prealbumin CA 19-9 Antigen Folate PTH Intact Urine WBC (Auto) Urine Creatinine Urine Chloride Urine Total Protein Fluid Glucose Fluid Total Protein Vancomycin Trough Miscellaneous Test Crossmatch 06/12/18 06/12/18 06/13/18 16:00 23:56 03:44 WBC RBC Hgb Hct MCV MCHC RDW Plt Count Lymph % (Auto) [place] % (Auto) Lymph # [place] # Seg Neutrophils % Seg Neuts % (Manual) Lymphocytes % (Manual) Monocytes % (Manual) Seg Neutrophils # Seg Neutrophils # Man Lymphocytes # (Manual) Monocytes # (Manual) PT INR APTT Heparin Anti-Xa Level POC ABG pH POC ABG pCO2 POC ABG pO2 Sodium Potassium Chloride Carbon Dioxide BUN Creatinine Glucose POC Glucose 123 H 128 H 121 H Lactic Acid Calcium Phosphorus Magnesium Iron TIBC AST ALT Alkaline Phosphatase Lactate Dehydrogenase Total Creatine Kinase C-Reactive Protein Total Protein Albumin Prealbumin CA 19-9 Antigen Folate PTH Intact Urine WBC (Auto) Urine Creatinine Urine Chloride Urine Total Protein Fluid Glucose Fluid Total Protein Vancomycin Trough Miscellaneous Test Crossmatch 06/13/18 06/13/18 06/14/18 05:59 11:29 01:08 WBC RBC Hgb Hct MCV MCHC RDW Plt Count Lymph % (Auto) [place] % (Auto) Lymph # [place] # Seg Neutrophils % Seg Neuts % (Manual) Lymphocytes % (Manual) Monocytes % (Manual) Seg Neutrophils # Seg Neutrophils # Man Lymphocytes # (Manual) Monocytes # (Manual) PT INR APTT Heparin Anti-Xa Level POC ABG pH POC ABG pCO2 POC ABG pO2 Sodium 134 L Potassium Chloride Carbon Dioxide 20 L BUN 69 H Creatinine 2.9 H Glucose 113 H POC Glucose 124 H 128 H Lactic Acid Calcium 7.8 L Phosphorus Magnesium Iron TIBC AST ALT Alkaline Phosphatase Lactate Dehydrogenase Total Creatine Kinase C-Reactive Protein Total Protein Albumin Prealbumin CA 19-9 Antigen Folate PTH Intact Urine WBC (Auto) Urine Creatinine Urine Chloride Urine Total Protein Fluid Glucose Fluid Total Protein Vancomycin Trough Miscellaneous Test Crossmatch 06/14/18 06/14/18 06/14/18 06:42 06:42 09:50 WBC 11.3 H RBC 3.02 L Hgb 8.8 L Hct 27.3 L MCV MCHC RDW 18.6 H Plt Count Lymph % (Auto) [place] % (Auto) Lymph # [place] # Seg Neutrophils % Seg Neuts % (Manual) Lymphocytes % (Manual) Monocytes % (Manual) Seg Neutrophils # Seg Neutrophils # Man Lymphocytes # (Manual) Monocytes # (Manual) PT 16.3 H INR 1.24 H APTT Heparin Anti-Xa Level POC ABG pH POC ABG pCO2 POC ABG pO2 Sodium 132 L Potassium Chloride Carbon Dioxide 19 L BUN 71 H Creatinine 3.1 H Glucose POC Glucose Lactic Acid Calcium 7.8 L Phosphorus Magnesium Iron TIBC AST ALT Alkaline Phosphatase Lactate Dehydrogenase Total Creatine Kinase C-Reactive Protein Total Protein Albumin Prealbumin CA 19-9 Antigen Folate PTH Intact Urine WBC (Auto) Urine Creatinine Urine Chloride Urine Total Protein Fluid Glucose Fluid Total Protein Vancomycin Trough Miscellaneous Test Crossmatch 06/14/18 06/14/18 06/15/18 12:31 17:04 01:18 WBC RBC Hgb Hct MCV MCHC RDW Plt Count Lymph % (Auto) [place] % (Auto) Lymph # [place] # Seg Neutrophils % Seg Neuts % (Manual) Lymphocytes % (Manual) Monocytes % (Manual) Seg Neutrophils # Seg Neutrophils # Man Lymphocytes # (Manual) Monocytes # (Manual) PT INR APTT Heparin Anti-Xa Level POC ABG pH POC ABG pCO2 POC ABG pO2 Sodium Potassium Chloride Carbon Dioxide BUN Creatinine Glucose POC Glucose 125 H 109 H 124 H Lactic Acid Calcium Phosphorus Magnesium Iron TIBC AST ALT Alkaline Phosphatase Lactate Dehydrogenase Total Creatine Kinase C-Reactive Protein Total Protein Albumin Prealbumin CA 19-9 Antigen Folate PTH Intact Urine WBC (Auto) Urine Creatinine Urine Chloride Urine Total Protein Fluid Glucose Fluid Total Protein Vancomycin Trough Miscellaneous Test Crossmatch 06/15/18 06/15/18 06/15/18 05:27 06:34 11:42 WBC RBC Hgb Hct MCV MCHC RDW Plt Count Lymph % (Auto) [place] % (Auto) Lymph # [place] # Seg Neutrophils % Seg Neuts % (Manual) Lymphocytes % (Manual) Monocytes % (Manual) Seg Neutrophils # Seg Neutrophils # Man Lymphocytes # (Manual) Monocytes # (Manual) PT INR APTT Heparin Anti-Xa Level POC ABG pH POC ABG pCO2 POC ABG pO2 Sodium 134 L Potassium Chloride Carbon Dioxide 17 L BUN 77 H Creatinine 3.2 H Glucose 110 H POC Glucose 116 H 131 H Lactic Acid Calcium 8.1 L Phosphorus 6.20 H D Magnesium Iron TIBC AST ALT Alkaline Phosphatase Lactate Dehydrogenase Total Creatine Kinase C-Reactive Protein Total Protein Albumin Prealbumin CA 19-9 Antigen Folate PTH Intact Urine WBC (Auto) Urine Creatinine Urine Chloride Urine Total Protein Fluid Glucose Fluid Total Protein Vancomycin Trough Miscellaneous Test Crossmatch 06/16/18 06/16/18 06/16/18 00:57 05:10 06:07 WBC RBC Hgb Hct MCV MCHC RDW Plt Count Lymph % (Auto) [place] % (Auto) Lymph # [place] # Seg Neutrophils % Seg Neuts % (Manual) Lymphocytes % (Manual) Monocytes % (Manual) Seg Neutrophils # Seg Neutrophils # Man Lymphocytes # (Manual) Monocytes # (Manual) PT INR APTT Heparin Anti-Xa Level POC ABG pH POC ABG pCO2 POC ABG pO2 Sodium 132 L Potassium Chloride Carbon Dioxide 19 L BUN 83 H Creatinine 3.2 H Glucose 113 H POC Glucose 137 H 109 H Lactic Acid Calcium 7.8 L Phosphorus 6.10 H Magnesium Iron TIBC AST ALT Alkaline Phosphatase Lactate Dehydrogenase Total Creatine Kinase C-Reactive Protein Total Protein Albumin Prealbumin CA 19-9 Antigen Folate PTH Intact Urine WBC (Auto) Urine Creatinine Urine Chloride Urine Total Protein Fluid Glucose Fluid Total Protein Vancomycin Trough Miscellaneous Test Crossmatch 06/16/18 06/16/18 06/17/18 11:51 15:46 00:02 WBC RBC Hgb Hct MCV MCHC RDW Plt Count Lymph % (Auto) [place] % (Auto) Lymph # [place] # Seg Neutrophils % Seg Neuts % (Manual) Lymphocytes % (Manual) Monocytes % (Manual) Seg Neutrophils # Seg Neutrophils # Man Lymphocytes # (Manual) Monocytes # (Manual) PT INR APTT Heparin Anti-Xa Level POC ABG pH POC ABG pCO2 POC ABG pO2 Sodium Potassium Chloride Carbon Dioxide BUN Creatinine Glucose POC Glucose 126 H 127 H 107 H Lactic Acid Calcium Phosphorus Magnesium Iron TIBC AST ALT Alkaline Phosphatase Lactate Dehydrogenase Total Creatine Kinase C-Reactive Protein Total Protein Albumin Prealbumin CA 19-9 Antigen Folate PTH Intact Urine WBC (Auto) Urine Creatinine Urine Chloride Urine Total Protein Fluid Glucose Fluid Total Protein Vancomycin Trough Miscellaneous Test Crossmatch 06/17/18 06/17/18 06/17/18 05:52 11:46 16:58 WBC RBC Hgb Hct MCV MCHC RDW Plt Count Lymph % (Auto) [place] % (Auto) Lymph # [place] # Seg Neutrophils % Seg Neuts % (Manual) Lymphocytes % (Manual) Monocytes % (Manual) Seg Neutrophils # Seg Neutrophils # Man Lymphocytes # (Manual) Monocytes # (Manual) PT INR APTT Heparin Anti-Xa Level POC ABG pH POC ABG pCO2 POC ABG pO2 Sodium 133 L Potassium Chloride Carbon Dioxide 17 L BUN 87 H Creatinine 3.2 H Glucose POC Glucose 129 H 140 H Lactic Acid Calcium 8.1 L Phosphorus 6.50 H Magnesium Iron TIBC AST ALT Alkaline Phosphatase Lactate Dehydrogenase Total Creatine Kinase C-Reactive Protein Total Protein Albumin Prealbumin 0.130 L CA 19-9 Antigen Folate PTH Intact Urine WBC (Auto) Urine Creatinine Urine Chloride Urine Total Protein Fluid Glucose Fluid Total Protein Vancomycin Trough Miscellaneous Test Crossmatch 06/18/18 06/18/18 06/18/18 04:04 04:04 14:15 WBC RBC 3.00 L Hgb 8.9 L Hct 26.5 L MCV MCHC RDW 17.8 H Plt Count 494 H Lymph % (Auto) 7.9 L [place] % (Auto) 9.3 H Lymph # 0.8 L [place] # 1.0 H Seg Neutrophils % 81.2 H Seg Neuts % (Manual) Lymphocytes % (Manual) Monocytes % (Manual) Seg Neutrophils # 8.6 H Seg Neutrophils # Man Lymphocytes # (Manual) Monocytes # (Manual) PT INR APTT Heparin Anti-Xa Level POC ABG pH POC ABG pCO2 POC ABG pO2 Sodium 128 L Potassium Chloride Carbon Dioxide 18 L BUN 88 H Creatinine 3.1 H Glucose 129 H POC Glucose 143 H Lactic Acid Calcium 7.8 L Phosphorus 6.20 H Magnesium Iron TIBC AST ALT Alkaline Phosphatase Lactate Dehydrogenase Total Creatine Kinase C-Reactive Protein Total Protein Albumin Prealbumin CA 19-9 Antigen Folate PTH Intact Urine WBC (Auto) Urine Creatinine Urine Chloride Urine Total Protein Fluid Glucose Fluid Total Protein Vancomycin Trough Miscellaneous Test Crossmatch 06/18/18 06/19/18 06/19/18 17:54 01:45 06:20 WBC RBC Hgb Hct MCV MCHC RDW Plt Count Lymph % (Auto) [place] % (Auto) Lymph # [place] # Seg Neutrophils % Seg Neuts % (Manual) Lymphocytes % (Manual) Monocytes % (Manual) Seg Neutrophils # Seg Neutrophils # Man Lymphocytes # (Manual) Monocytes # (Manual) PT INR APTT Heparin Anti-Xa Level POC ABG pH POC ABG pCO2 POC ABG pO2 Sodium Potassium Chloride 93.9 L Carbon Dioxide BUN 78 H Creatinine 2.8 H Glucose POC Glucose 138 H 141 H Lactic Acid Calcium 7.1 L Phosphorus 6.40 H Magnesium Iron TIBC AST ALT Alkaline Phosphatase Lactate Dehydrogenase Total Creatine Kinase C-Reactive Protein Total Protein Albumin Prealbumin CA 19-9 Antigen Folate PTH Intact Urine WBC (Auto) Urine Creatinine Urine Chloride Urine Total Protein Fluid Glucose Fluid Total Protein Vancomycin Trough Miscellaneous Test Crossmatch 06/19/18 06/19/18 06/19/18 06:49 07:59 16:32 WBC RBC Hgb Hct MCV MCHC RDW Plt Count Lymph % (Auto) [place] % (Auto) Lymph # [place] # Seg Neutrophils % Seg Neuts % (Manual) Lymphocytes % (Manual) Monocytes % (Manual) Seg Neutrophils # Seg Neutrophils # Man Lymphocytes # (Manual) Monocytes # (Manual) PT INR APTT Heparin Anti-Xa Level POC ABG pH POC ABG pCO2 POC ABG pO2 Sodium Potassium Chloride Carbon Dioxide BUN 80 H Creatinine 2.9 H Glucose 123 H POC Glucose 130 H 134 H Lactic Acid Calcium 7.7 L Phosphorus Magnesium Iron TIBC AST ALT Alkaline Phosphatase Lactate Dehydrogenase Total Creatine Kinase C-Reactive Protein Total Protein Albumin Prealbumin CA 19-9 Antigen Folate PTH Intact Urine WBC (Auto) Urine Creatinine Urine Chloride Urine Total Protein Fluid Glucose Fluid Total Protein Vancomycin Trough Miscellaneous Test Crossmatch 06/20/18 06/20/18 06/20/18 00:11 05:55 05:55 WBC RBC 2.73 L Hgb 8.0 L Hct 24.2 L MCV MCHC RDW 17.4 H Plt Count 512 H Lymph % (Auto) 12.3 L [place] % (Auto) 11.3 H Lymph # 1.1 L [place] # 1.0 H Seg Neutrophils % 74.8 H Seg Neuts % (Manual) Lymphocytes % (Manual) Monocytes % (Manual) Seg Neutrophils # Seg Neutrophils # Man Lymphocytes # (Manual) Monocytes # (Manual) PT INR APTT Heparin Anti-Xa Level POC ABG pH POC ABG pCO2 POC ABG pO2 Sodium Potassium Chloride Carbon Dioxide 32 H BUN 70 H Creatinine 2.5 H Glucose 105 H POC Glucose 131 H Lactic Acid Calcium 8.0 L Phosphorus Magnesium Iron TIBC AST ALT Alkaline Phosphatase Lactate Dehydrogenase Total Creatine Kinase C-Reactive Protein Total Protein Albumin Prealbumin CA 19-9 Antigen Folate PTH Intact Urine WBC (Auto) Urine Creatinine Urine Chloride Urine Total Protein Fluid Glucose Fluid Total Protein Vancomycin Trough Miscellaneous Test Crossmatch 06/20/18 06/20/18 06/20/18 05:55 12:10 16:01 WBC RBC Hgb Hct MCV MCHC RDW Plt Count Lymph % (Auto) [place] % (Auto) Lymph # [place] # Seg Neutrophils % Seg Neuts % (Manual) Lymphocytes % (Manual) Monocytes % (Manual) Seg Neutrophils # Seg Neutrophils # Man Lymphocytes # (Manual) Monocytes # (Manual) PT INR APTT Heparin Anti-Xa Level POC ABG pH POC ABG pCO2 POC ABG pO2 Sodium Potassium Chloride Carbon Dioxide BUN Creatinine Glucose POC Glucose 112 H 127 H 145 H Lactic Acid Calcium Phosphorus Magnesium Iron TIBC AST ALT Alkaline Phosphatase Lactate Dehydrogenase Total Creatine Kinase C-Reactive Protein Total Protein Albumin Prealbumin CA 19-9 Antigen Folate PTH Intact Urine WBC (Auto) Urine Creatinine Urine Chloride Urine Total Protein Fluid Glucose Fluid Total Protein Vancomycin Trough Miscellaneous Test Crossmatch 06/20/18 06/21/18 06/21/18 23:54 05:50 05:50 WBC RBC 2.57 L Hgb 7.7 L Hct 26.6 L MCV 104 H MCHC 29 L RDW 19.1 H Plt Count 521 H Lymph % (Auto) 10.0 L [place] % (Auto) 7.4 H Lymph # 1.0 L [place] # Seg Neutrophils % 81.3 H Seg Neuts % (Manual) Lymphocytes % (Manual) Monocytes % (Manual) Seg Neutrophils # 7.9 H Seg Neutrophils # Man Lymphocytes # (Manual) Monocytes # (Manual) PT INR APTT Heparin Anti-Xa Level POC ABG pH POC ABG pCO2 POC ABG pO2 Sodium Potassium 5.8 H D Chloride 90.3 L Carbon Dioxide 37 H BUN 57 H Creatinine 1.9 H Glucose POC Glucose 154 H Lactic Acid Calcium 7.3 L Phosphorus Magnesium Iron TIBC AST 50 H ALT Alkaline Phosphatase 190 H Lactate Dehydrogenase Total Creatine Kinase C-Reactive Protein Total Protein Albumin 1.8 L Prealbumin CA 19-9 Antigen Folate PTH Intact Urine WBC (Auto) Urine Creatinine Urine Chloride Urine Total Protein Fluid Glucose Fluid Total Protein Vancomycin Trough Miscellaneous Test Crossmatch 06/21/18 06/21/18 06/21/18 06:57 13:37 17:00 WBC RBC Hgb Hct MCV MCHC RDW Plt Count Lymph % (Auto) [place] % (Auto) Lymph # [place] # Seg Neutrophils % Seg Neuts % (Manual) Lymphocytes % (Manual) Monocytes % (Manual) Seg Neutrophils # Seg Neutrophils # Man Lymphocytes # (Manual) Monocytes # (Manual) PT INR APTT Heparin Anti-Xa Level POC ABG pH POC ABG pCO2 POC ABG pO2 Sodium Potassium Chloride Carbon Dioxide BUN Creatinine Glucose 111 H POC Glucose 141 H 148 H Lactic Acid Calcium Phosphorus Magnesium Iron TIBC AST ALT Alkaline Phosphatase Lactate Dehydrogenase Total Creatine Kinase C-Reactive Protein Total Protein Albumin Prealbumin CA 19-9 Antigen Folate PTH Intact Urine WBC (Auto) Urine Creatinine Urine Chloride Urine Total Protein Fluid Glucose Fluid Total Protein Vancomycin Trough Miscellaneous Test Crossmatch 06/21/18 06/21/18 06/22/18 17:27 22:01 06:02 WBC RBC Hgb Hct MCV MCHC RDW Plt Count Lymph % (Auto) [place] % (Auto) Lymph # [place] # Seg Neutrophils % Seg Neuts % (Manual) Lymphocytes % (Manual) Monocytes % (Manual) Seg Neutrophils # Seg Neutrophils # Man Lymphocytes # (Manual) Monocytes # (Manual) PT INR APTT Heparin Anti-Xa Level POC ABG pH POC ABG pCO2 POC ABG pO2 Sodium Potassium 3.2 L Chloride Carbon Dioxide 39 H BUN 53 H Creatinine 1.9 H Glucose 1348 H* POC Glucose 130 H 122 H Lactic Acid Calcium 7.5 L Phosphorus Magnesium Iron TIBC AST ALT Alkaline Phosphatase Lactate Dehydrogenase Total Creatine Kinase C-Reactive Protein Total Protein Albumin Prealbumin CA 19-9 Antigen Folate PTH Intact Urine WBC (Auto) Urine Creatinine Urine Chloride Urine Total Protein Fluid Glucose Fluid Total Protein Vancomycin Trough Miscellaneous Test Crossmatch 06/22/18 06/22/18 06/22/18 06:16 07:26 07:48 WBC RBC Hgb Hct MCV MCHC RDW Plt Count Lymph % (Auto) [place] % (Auto) Lymph # [place] # Seg Neutrophils % Seg Neuts % (Manual) Lymphocytes % (Manual) Monocytes % (Manual) Seg Neutrophils # Seg Neutrophils # Man Lymphocytes # (Manual) Monocytes # (Manual) PT INR APTT Heparin Anti-Xa Level POC ABG pH POC ABG pCO2 POC ABG pO2 Sodium Potassium Chloride Carbon Dioxide 37 H BUN 57 H Creatinine 1.9 H Glucose 147 H POC Glucose 148 H 153 H Lactic Acid Calcium 8.3 L Phosphorus Magnesium Iron TIBC AST ALT Alkaline Phosphatase Lactate Dehydrogenase Total Creatine Kinase C-Reactive Protein Total Protein Albumin Prealbumin CA 19-9 Antigen Folate PTH Intact Urine WBC (Auto) Urine Creatinine Urine Chloride Urine Total Protein Fluid Glucose Fluid Total Protein Vancomycin Trough Miscellaneous Test Crossmatch 06/22/18 06/22/18 06/22/18 11:26 16:26 23:57 WBC RBC Hgb Hct MCV MCHC RDW Plt Count Lymph % (Auto) [place] % (Auto) Lymph # [place] # Seg Neutrophils % Seg Neuts % (Manual) Lymphocytes % (Manual) Monocytes % (Manual) Seg Neutrophils # Seg Neutrophils # Man Lymphocytes # (Manual) Monocytes # (Manual) PT INR APTT Heparin Anti-Xa Level POC ABG pH POC ABG pCO2 POC ABG pO2 Sodium Potassium Chloride Carbon Dioxide BUN Creatinine Glucose POC Glucose 121 H 122 H 180 H Lactic Acid Calcium Phosphorus Magnesium Iron TIBC AST ALT Alkaline Phosphatase Lactate Dehydrogenase Total Creatine Kinase C-Reactive Protein Total Protein Albumin Prealbumin CA 19-9 Antigen Folate PTH Intact Urine WBC (Auto) Urine Creatinine Urine Chloride Urine Total Protein Fluid Glucose Fluid Total Protein Vancomycin Trough Miscellaneous Test Crossmatch 06/22/18 06/23/18 06/23/18 23:57 00:30 01:40 WBC RBC Hgb Hct MCV MCHC RDW Plt Count Lymph % (Auto) [place] % (Auto) Lymph # [place] # Seg Neutrophils % Seg Neuts % (Manual) Lymphocytes % (Manual) Monocytes % (Manual) Seg Neutrophils # Seg Neutrophils # Man Lymphocytes # (Manual) Monocytes # (Manual) PT INR APTT Heparin Anti-Xa Level POC ABG pH 7.195 L 7.235 L POC ABG pCO2 105.2 H 95.7 H POC ABG pO2 Sodium Potassium Chloride Carbon Dioxide BUN Creatinine Glucose POC Glucose Lactic Acid Calcium Phosphorus Magnesium Iron TIBC AST ALT Alkaline Phosphatase Lactate Dehydrogenase Total Creatine Kinase C-Reactive Protein Total Protein Albumin Prealbumin CA 19-9 Antigen Folate PTH Intact Urine WBC (Auto) Urine Creatinine 99.7 H Urine Chloride 10.0 L Urine Total Protein 272 H Fluid Glucose Fluid Total Protein Vancomycin Trough Miscellaneous Test Crossmatch 06/23/18 06/23/18 06/23/18 05:58 07:20 08:31 WBC 16.0 H RBC 2.35 L Hgb 6.7 L Hct 22.3 L MCV 95 H MCHC 30 L RDW 18.5 H Plt Count 512 H Lymph % (Auto) [place] % (Auto) Lymph # [place] # Seg Neutrophils % Seg Neuts % (Manual) Lymphocytes % (Manual) Monocytes % (Manual) Seg Neutrophils # Seg Neutrophils # Man Lymphocytes # (Manual) Monocytes # (Manual) PT INR APTT Heparin Anti-Xa Level POC ABG pH POC ABG pCO2 POC ABG pO2 Sodium Potassium Chloride Carbon Dioxide BUN Creatinine Glucose POC Glucose 116 H 123 H Lactic Acid Calcium Phosphorus Magnesium Iron TIBC AST ALT Alkaline Phosphatase Lactate Dehydrogenase Total Creatine Kinase C-Reactive Protein Total Protein Albumin Prealbumin CA 19-9 Antigen Folate PTH Intact Urine WBC (Auto) Urine Creatinine Urine Chloride Urine Total Protein Fluid Glucose Fluid Total Protein Vancomycin Trough Miscellaneous Test Crossmatch 06/23/18 06/23/18 06/23/18 08:31 08:34 08:34 WBC RBC Hgb Hct MCV MCHC RDW Plt Count 485 H Lymph % (Auto) [place] % (Auto) Lymph # [place] # Seg Neutrophils % Seg Neuts % (Manual) Lymphocytes % (Manual) Monocytes % (Manual) Seg Neutrophils # Seg Neutrophils # Man Lymphocytes # (Manual) Monocytes # (Manual) PT 15.2 H INR 1.15 H APTT 41.9 H Heparin Anti-Xa Level POC ABG pH POC ABG pCO2 POC ABG pO2 Sodium 148 H Potassium Chloride Carbon Dioxide BUN 59 H Creatinine 2.2 H Glucose 106 H POC Glucose Lactic Acid Calcium 8.2 L Phosphorus 6.60 H Magnesium Iron TIBC AST 46 H ALT Alkaline Phosphatase 188 H Lactate Dehydrogenase Total Creatine Kinase C-Reactive Protein Total Protein Albumin 1.6 L Prealbumin CA 19-9 Antigen Folate PTH Intact Urine WBC (Auto) Urine Creatinine Urine Chloride Urine Total Protein Fluid Glucose Fluid Total Protein Vancomycin Trough Miscellaneous Test Crossmatch 06/23/18 06/23/18 06/23/18 09:29 09:40 09:43 WBC RBC Hgb Hct MCV MCHC RDW Plt Count Lymph % (Auto) [place] % (Auto) Lymph # [place] # Seg Neutrophils % Seg Neuts % (Manual) Lymphocytes % (Manual) Monocytes % (Manual) Seg Neutrophils # Seg Neutrophils # Man Lymphocytes # (Manual) Monocytes # (Manual) PT INR APTT Heparin Anti-Xa Level POC ABG pH 7.521 H POC ABG pCO2 53.6 H 48.4 H POC ABG pO2 37 L 181 H Sodium Potassium Chloride Carbon Dioxide BUN Creatinine Glucose POC Glucose Lactic Acid Calcium Phosphorus Magnesium Iron TIBC AST ALT Alkaline Phosphatase Lactate Dehydrogenase Total Creatine Kinase C-Reactive Protein Total Protein Albumin Prealbumin CA 19-9 Antigen Folate PTH Intact Urine WBC (Auto) Urine Creatinine Urine Chloride Urine Total Protein Fluid Glucose Fluid Total Protein Vancomycin Trough Miscellaneous Test Crossmatch See Detail 06/23/18 06/23/18 06/23/18 17:03 17:03 18:33 WBC 22.2 H RBC 2.85 L Hgb 8.4 L Hct 25.6 L MCV MCHC RDW 17.6 H Plt Count 515 H Lymph % (Auto) [place] % (Auto) Lymph # [place] # Seg Neutrophils % Seg Neuts % (Manual) Lymphocytes % (Manual) Monocytes % (Manual) Seg Neutrophils # Seg Neutrophils # Man Lymphocytes # (Manual) Monocytes # (Manual) PT INR APTT Heparin Anti-Xa Level 0.13 L POC ABG pH POC ABG pCO2 POC ABG pO2 Sodium Potassium Chloride Carbon Dioxide BUN Creatinine Glucose POC Glucose < 40 L Lactic Acid Calcium Phosphorus Magnesium Iron TIBC AST ALT Alkaline Phosphatase Lactate Dehydrogenase Total Creatine Kinase C-Reactive Protein Total Protein Albumin Prealbumin CA 19-9 Antigen Folate PTH Intact Urine WBC (Auto) Urine Creatinine Urine Chloride Urine Total Protein Fluid Glucose Fluid Total Protein Vancomycin Trough Miscellaneous Test Crossmatch 06/23/18 06/23/18 06/24/18 23:53 Unknown 00:30 WBC RBC Hgb Hct MCV MCHC RDW Plt Count Lymph % (Auto) [place] % (Auto) Lymph # [place] # Seg Neutrophils % Seg Neuts % (Manual) Lymphocytes % (Manual) Monocytes % (Manual) Seg Neutrophils # Seg Neutrophils # Man Lymphocytes # (Manual) Monocytes # (Manual) PT INR APTT Heparin Anti-Xa Level POC ABG pH POC ABG pCO2 POC ABG pO2 Sodium 148 H Potassium Chloride Carbon Dioxide 36 H BUN 57 H Creatinine 1.9 H Glucose POC Glucose 140 H Lactic Acid Calcium 8.3 L Phosphorus Magnesium Iron TIBC AST ALT Alkaline Phosphatase Lactate Dehydrogenase Total Creatine Kinase C-Reactive Protein Total Protein Albumin Prealbumin CA 19-9 Antigen Folate PTH Intact Urine WBC (Auto) 8.0 H Urine Creatinine Urine Chloride Urine Total Protein Fluid Glucose Fluid Total Protein Vancomycin Trough Miscellaneous Test Crossmatch 06/24/18 06/24/18 06/24/18 00:40 04:30 04:30 WBC 26.9 H RBC 2.79 L Hgb 8.1 L Hct 25.0 L MCV MCHC RDW 17.5 H Plt Count 487 H Lymph % (Auto) [place] % (Auto) Lymph # [place] # Seg Neutrophils % Seg Neuts % (Manual) Lymphocytes % (Manual) 6.0 L Monocytes % (Manual) 8.0 H Seg Neutrophils # Seg Neutrophils # Man 16.9 H Lymphocytes # (Manual) Monocytes # (Manual) 2.2 H PT INR APTT Heparin Anti-Xa Level 0.13 L POC ABG pH POC ABG pCO2 POC ABG pO2 Sodium 151 H Potassium Chloride Carbon Dioxide 36 H D BUN 74 H Creatinine 2.9 H Glucose 126 H POC Glucose Lactic Acid Calcium 8.2 L Phosphorus Magnesium Iron TIBC AST ALT Alkaline Phosphatase Lactate Dehydrogenase Total Creatine Kinase C-Reactive Protein Total Protein Albumin Prealbumin CA 19-9 Antigen Folate PTH Intact Urine WBC (Auto) Urine Creatinine Urine Chloride Urine Total Protein Fluid Glucose Fluid Total Protein Vancomycin Trough Miscellaneous Test Crossmatch 06/24/18 06/24/1818 04:33 06:41 08:00 WBC RBC Hgb Hct MCV MCHC RDW Plt Count Lymph % (Auto) [place] % (Auto) Lymph # [place] # Seg Neutrophils % Seg Neuts % (Manual) Lymphocytes % (Manual) Monocytes % (Manual) Seg Neutrophils # Seg Neutrophils # Man Lymphocytes # (Manual) Monocytes # (Manual) PT INR APTT Heparin Anti-Xa Level 0.21 L POC ABG pH 7.517 H POC ABG pCO2 50.9 H POC ABG pO2 170 H Sodium Potassium Chloride Carbon Dioxide BUN Creatinine Glucose POC Glucose 140 H Lactic Acid Calcium Phosphorus Magnesium Iron TIBC AST ALT Alkaline Phosphatase Lactate Dehydrogenase Total Creatine Kinase C-Reactive Protein Total Protein Albumin Prealbumin CA 19-9 Antigen Folate PTH Intact Urine WBC (Auto) Urine Creatinine Urine Chloride Urine Total Protein Fluid Glucose Fluid Total Protein Vancomycin Trough Miscellaneous Test Crossmatch 06/24/18 06/24/18 06/24/18 12:27 14:20 18:46 WBC RBC Hgb Hct MCV MCHC RDW Plt Count Lymph % (Auto) [place] % (Auto) Lymph # [place] # Seg Neutrophils % Seg Neuts % (Manual) Lymphocytes % (Manual) Monocytes % (Manual) Seg Neutrophils # Seg Neutrophils # Man Lymphocytes # (Manual) Monocytes # (Manual) PT INR APTT Heparin Anti-Xa Level 0.28 L POC ABG pH POC ABG pCO2 POC ABG pO2 Sodium Potassium Chloride Carbon Dioxide BUN Creatinine Glucose POC Glucose 216 H 182 H Lactic Acid Calcium Phosphorus Magnesium Iron TIBC AST ALT Alkaline Phosphatase Lactate Dehydrogenase Total Creatine Kinase C-Reactive Protein Total Protein Albumin Prealbumin CA 19-9 Antigen Folate PTH Intact Urine WBC (Auto) Urine Creatinine Urine Chloride Urine Total Protein Fluid Glucose Fluid Total Protein Vancomycin Trough Miscellaneous Test Crossmatch 06/24/18 06/25/18 06/25/18 23:43 04:29 04:37 WBC RBC Hgb 8.1 L Hct 25.6 L MCV MCHC RDW Plt Count Lymph % (Auto) [place] % (Auto) Lymph # [place] # Seg Neutrophils % Seg Neuts % (Manual) Lymphocytes % (Manual) Monocytes % (Manual) Seg Neutrophils # Seg Neutrophils # Man Lymphocytes # (Manual) Monocytes # (Manual) PT INR APTT Heparin Anti-Xa Level POC ABG pH 7.534 H POC ABG pCO2 POC ABG pO2 161 H Sodium Potassium Chloride Carbon Dioxide BUN Creatinine Glucose POC Glucose 217 H Lactic Acid Calcium Phosphorus Magnesium Iron TIBC AST ALT Alkaline Phosphatase Lactate Dehydrogenase Total Creatine Kinase C-Reactive Protein Total Protein Albumin Prealbumin CA 19-9 Antigen Folate PTH Intact Urine WBC (Auto) Urine Creatinine Urine Chloride Urine Total Protein Fluid Glucose Fluid Total Protein Vancomycin Trough Miscellaneous Test Crossmatch 06/25/18 06/25/18 06/25/18 04:37 05:48 12:11 WBC RBC Hgb Hct MCV MCHC RDW Plt Count Lymph % (Auto) [place] % (Auto) Lymph # [place] # Seg Neutrophils % Seg Neuts % (Manual) Lymphocytes % (Manual) Monocytes % (Manual) Seg Neutrophils # Seg Neutrophils # Man Lymphocytes # (Manual) Monocytes # (Manual) PT INR APTT Heparin Anti-Xa Level POC ABG pH POC ABG pCO2 POC ABG pO2 Sodium Potassium 2.6 L* D Chloride Carbon Dioxide 32 H BUN 75 H Creatinine 3.1 H Glucose 244 H POC Glucose 225 H 252 H Lactic Acid Calcium Phosphorus Magnesium Iron TIBC AST ALT Alkaline Phosphatase Lactate Dehydrogenase Total Creatine Kinase C-Reactive Protein Total Protein Albumin Prealbumin CA 19-9 Antigen Folate PTH Intact Urine WBC (Auto) Urine Creatinine Urine Chloride Urine Total Protein Fluid Glucose Fluid Total Protein Vancomycin Trough Miscellaneous Test Crossmatch 06/25/18 06/25/18 06/25/18 15:58 18:12 20:30 WBC RBC Hgb 8.5 L Hct 27.6 L MCV MCHC RDW Plt Count Lymph % (Auto) [place] % (Auto) Lymph # [place] # Seg Neutrophils % Seg Neuts % (Manual) Lymphocytes % (Manual) Monocytes % (Manual) Seg Neutrophils # Seg Neutrophils # Man Lymphocytes # (Manual) Monocytes # (Manual) PT INR APTT Heparin Anti-Xa Level POC ABG pH POC ABG pCO2 POC ABG pO2 Sodium 148 H Potassium 2.4 L* Chloride Carbon Dioxide 31 H BUN 79 H Creatinine 3.0 H Glucose 152 H POC Glucose 199 H Lactic Acid Calcium 8.3 L Phosphorus Magnesium Iron TIBC AST ALT Alkaline Phosphatase Lactate Dehydrogenase Total Creatine Kinase C-Reactive Protein Total Protein Albumin Prealbumin CA 19-9 Antigen Folate PTH Intact Urine WBC (Auto) Urine Creatinine Urine Chloride Urine Total Protein Fluid Glucose Fluid Total Protein Vancomycin Trough Miscellaneous Test Crossmatch 06/26/18 06/26/18 06/26/18 04:00 04:00 04:00 WBC 26.2 H RBC 3.16 L Hgb 9.1 L Hct 28.8 L MCV MCHC RDW 18.2 H Plt Count Lymph % (Auto) [place] % (Auto) Lymph # [place] # Seg Neutrophils % Seg Neuts % (Manual) Lymphocytes % (Manual) 2.0 L Monocytes % (Manual) Seg Neutrophils # Seg Neutrophils # Man 11.5 H Lymphocytes # (Manual) 0.5 L Monocytes # (Manual) PT INR APTT Heparin Anti-Xa Level POC ABG pH POC ABG pCO2 POC ABG pO2 Sodium 146 H Potassium 3.2 L D 3.3 L Chloride 109.0 H 108.2 H Carbon Dioxide BUN 74 H 75 H Creatinine 2.9 H 2.9 H Glucose 62 L 60 L POC Glucose Lactic Acid Calcium 7.7 L 7.9 L Phosphorus Magnesium 1.60 L Iron TIBC AST ALT Alkaline Phosphatase 173 H Lactate Dehydrogenase Total Creatine Kinase C-Reactive Protein Total Protein 6.1 L Albumin 1.4 L Prealbumin CA 19-9 Antigen Folate PTH Intact Urine WBC (Auto) Urine Creatinine Urine Chloride Urine Total Protein Fluid Glucose Fluid Total Protein Vancomycin Trough Miscellaneous Test Crossmatch 06/26/18 06/26/18 06/26/18 05:57 05:59 06:22 WBC RBC Hgb Hct MCV MCHC RDW Plt Count Lymph % (Auto) [place] % (Auto) Lymph # [place] # Seg Neutrophils % Seg Neuts % (Manual) Lymphocytes % (Manual) Monocytes % (Manual) Seg Neutrophils # Seg Neutrophils # Man Lymphocytes # (Manual) Monocytes # (Manual) PT INR APTT Heparin Anti-Xa Level POC ABG pH 7.269 L POC ABG pCO2 68.0 H POC ABG pO2 73 L Sodium Potassium Chloride Carbon Dioxide BUN Creatinine Glucose POC Glucose 59 L 130 H Lactic Acid Calcium Phosphorus Magnesium Iron TIBC AST ALT Alkaline Phosphatase Lactate Dehydrogenase Total Creatine Kinase C-Reactive Protein Total Protein Albumin Prealbumin CA 19-9 Antigen Folate PTH Intact Urine WBC (Auto) Urine Creatinine Urine Chloride Urine Total Protein Fluid Glucose Fluid Total Protein Vancomycin Trough Miscellaneous Test Crossmatch 06/27/18 06/27/18 06/27/18 03:34 05:20 05:20 WBC RBC Hgb 6.7 L Hct 21.2 L D MCV MCHC RDW Plt Count Lymph % (Auto) [place] % (Auto) Lymph # [place] # Seg Neutrophils % Seg Neuts % (Manual) Lymphocytes % (Manual) Monocytes % (Manual) Seg Neutrophils # Seg Neutrophils # Man Lymphocytes # (Manual) Monocytes # (Manual) PT INR APTT Heparin Anti-Xa Level POC ABG pH 7.251 L POC ABG pCO2 63.7 H POC ABG pO2 157 H Sodium Potassium 5.9 H D Chloride Carbon Dioxide BUN 87 H Creatinine 4.4 H D Glucose 128 H POC Glucose Lactic Acid Calcium 8.1 L Phosphorus Magnesium Iron TIBC AST ALT Alkaline Phosphatase Lactate Dehydrogenase Total Creatine Kinase C-Reactive Protein Total Protein Albumin Prealbumin CA 19-9 Antigen Folate PTH Intact Urine WBC (Auto) Urine Creatinine Urine Chloride Urine Total Protein Fluid Glucose Fluid Total Protein Vancomycin Trough Miscellaneous Test Crossmatch 06/27/18 09:05 WBC RBC Hgb 6.9 L Hct 21.6 L MCV MCHC RDW Plt Count Lymph % (Auto) [place] % (Auto) Lymph # [place] # Seg Neutrophils % Seg Neuts % (Manual) Lymphocytes % (Manual) Monocytes % (Manual) Seg Neutrophils # Seg Neutrophils # Man Lymphocytes # (Manual) Monocytes # (Manual) PT INR APTT Heparin Anti-Xa Level POC ABG pH POC ABG pCO2 POC ABG pO2 Sodium Potassium Chloride Carbon Dioxide BUN Creatinine Glucose POC Glucose Lactic Acid Calcium Phosphorus Magnesium Iron TIBC AST ALT Alkaline Phosphatase Lactate Dehydrogenase Total Creatine Kinase C-Reactive Protein Total Protein Albumin Prealbumin CA 19-9 Antigen Folate PTH Intact Urine WBC (Auto) Urine Creatinine Urine Chloride Urine Total Protein Fluid Glucose Fluid Total Protein Vancomycin Trough Miscellaneous Test Crossmatch
[2018-06-27] MEDS: FERROUS SULFATE PO SCH ×2 (10:28→22:41)
[2018-06-27] MEDS: FOLVITE PO SCH (10:28)
[2018-06-27] MEDS: PEPCID IV SCH (10:28)
[2018-06-27 11:30] LABS: Hematocrit 21.6 % (35.5-45.6); Hemoglobin 6.7 gm/dl (11.8-15.2); Mean Corpuscular HGB Conc 31 % (32-34); Mean Corpuscular Hemoglobin 28 pg (28-32); Mean Corpuscular Volume 91 fl (84-94); Platelet Count 302 K/mm3 (140-440); Red Blood Count 2.37 M/mm3 (3.65-5.03)
[2018-06-27 12:33] LABS: Basophils % (Manual) 0 % (0.0-1.8); Eosinophils % (Manual) 0 % (0.0-4.3); Total Cells Counted 100
[2018-06-27 12:34] LABS: Anisocytosis 1+; Platelet Estimate Cons
[2018-06-27] MEDS ORDERED: NACL 0.9% 100 ML IV PRN (13:24)
[2018-06-27] MEDS ORDERED: PROCRIT SUB-Q PRN (13:24)
[2018-06-27] MEDS ORDERED: ALBURX 25% (ALBUMIN) IV PRN (13:24)
--- NOTE | 2018-06-27 15:36 | Nuclear Medicine Report ---
NUCLEAR MEDICINE BRAIN FLOW History: Altered mental status, obtundation Findings: Anterior images of the head and neck were obtained following 20 mCi of technetium 99m pertechnetate. The images demonstrate normal and symmetric flow overlying the right and left common carotid arteries. There is certainly marked reduction in flow overlying the cerebral hemispheres. The time activity curves do demonstrate minimal flow overlying the cerebral hemispheres ranging from 25-50 counts per second. This may be secondary to flow in the external carotid artery territories. Impression: There is certainly markedly decreased intracranial blood flow flow overlying the cerebral hemispheres on nuclear medicine study, however, there is evidence for minimal intracranial flow on the time activity curves.
[2018-06-27] MEDS: TPN ADULT 2,016 ML IV SCH (20:01)
[2018-06-27] MEDS ORDERED: NACL 0.9% 1000 ML 2,000 ML ONE (21:11)
[2018-06-28] MEDS: LOPRESSOR IV SCH ×4 (00:26→17:52)
[2018-06-28] MEDS: HumuLIN R SUB-Q SCH ×4 (00:40→17:53)
--- NOTE | 2018-06-28 01:25 | Consultation ---
HISTORY OF PRESENT ILLNESS: This is a 52-year-old black male that was initially admitted to [facility] on 05/19/2018. The patient was admitted for surgical evaluation and since being admitted to the hospital ED note from 05/13/2018 on the day of admission indicates that when he was initially presented, he had had a history of complaining of swelling for 2 weeks. He notices fatigue, abdominal cramping and not been feeling well. He had had abdominal pain and swelling in his left leg. At the time of his admission, he was felt to be in acute kidney failure. Subsequent to admission, he has been diagnosed as having squamous cell carcinoma. Details regarding surroundings his arrest I am not going to comment on, as it previously been documented, Dr. Smiley told me something about this, but I am seeing him for neurological second opinion, overread of his EEG. His EEG is isoelectric. It does not show brain activity. His neurological examination done as an independent evaluation reveals he has fixed and dilated pupils, nonreactive, does not respond to pain. Does not breathe. He has no gag reflex. He has no spontaneous movements of any type. He does not have any evidence of any brain activity ____ both superficial or reflexive or any other form or type. At that time, he was evaluated, he was normotensive, has good blood pressure and has his normal body temperature. He is under the influence of no medications that would preclude the determination of clinical evaluation for lack of brain activity. At this point, the patient's neurological examination confirms he does not have evidence of any brain activity. Based on the clinical evaluation and based on EEG as a second opinion. Based on my review of his notes, I see any basis for any recoverability and he is with lack of recoverable state and subsequent to my evaluation, I did have a discussion with his sister about my general approach to the situation and she was informed about this. JOB# [id number] YOKASTA/ALTA
--- NOTE | 2018-06-28 02:22 | XRay Report ---
FINAL REPORT EXAM: XR CHEST 1V AP HISTORY: follow up respiratory failure COMPARISON: June 27, 2018. FINDINGS: Frontal view(s) of the chest obtained. Stable mild cardiac enlargement. ET tube remains in satisfactory position. Distal tip approximately 7 centimeters from the patience. Feeding tube remains in place. Distal tip not visualized but extends at least to the mid stomach. Stable patchy airspace opacities mid to lower lungs with small to moderate left and moderate right-sided pleural effusions. No pneumothorax. IMPRESSION: ETT and feeding tube remain in place. Stable bilateral pleural effusions consolidations greater on the right.
[2018-06-28 05:25] LABS: Calcium 9.1 mg/dL (8.4-10.2)
--- NOTE | 2018-06-28 07:20 | Hem/Onc Progress Note ---
Assessment and Plan s/p code 06/23 -pt on vent #bowel obstruction - s/p diverting colostomy 05/26 sx notes -mentions matted mass #radiology Pelvic mass Large pelvic mass between bladder and rectum with large lymph nodes, s/p cystoscopy prostate area bx - sq cell features- anal vs lung path from ascites and pleural fluid reviewed # CT had shown bowel obstruction - s/p diverting colostomy # anemia - PRBC as needed low folate - on replacement # h/o leukocytosis on 05/22 - we will follow - likely reactive # h/o Acute kidney injury due to pelvic mass - Nephrology following. Ultrasound Kidneys showed bilat hydronephrosis CT Abd shows Pelvic mass with multiple large lymph nodes Had bilateral nephrostomy tubes placed 05/14/[address] Freeman. 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 Pt transferred to ICU has he was SOB - intubated - 06/23 06/28 - pt off pressors - not responding as per RN - family conference was done - in view of poor prognosis neurology note reviewed 06/28 - Patient Problems (1) Pelvic mass in male Current Visit: Yes Status: Acute Subjective Date of service: 06/28/18 Principal diagnosis: anemia, sq cell ca Interval history: pt had diverting colostomy 05/26 sq cell ca - prostate area had code 06/23 - transferred to ICU 06/28 - pt off pressors - got HD Objective - Exam Narrative Exam: pt not responsive - Constitutional Vitals: Last Vital Signs Temp 98.1 F 06/28/18 04:00 Pulse 90 06/28/18 07:13 Resp 16 06/28/18 07:00 BP 129/86 06/28/18 07:13 Pulse Ox 99 06/28/18 07:13 Performance status: 4-completely disabled - EENT Lymph node exam: negative cervical, negative supraclavicular - Respiratory Respiratory effort: Positive: other (on vent) Respiratory: bilateral: CTA (anteriorly) - Cardiovascular Heart Sounds: Present: S1 & S2 - Gastrointestinal General gastrointestinal: Present: soft, other (colostomy) Rectal Exam: deferred - Genitourinary Male genitourinary: Present: deferred - Integumentary Integumentary: warm - Neurologic Neurologic: other (not repsonding) - Allied health notes Allied health notes reviewed: nursing (d/w RN) - Labs Lab Results: Laboratory Results - last 24 hr 06/23/18 06/27/18 06/27/18 09:40 09:05 10:56 WBC RBC Hgb 6.9 L Hct 21.6 L MCV MCH MCHC RDW Plt Count Add Manual Diff Total Counted Seg Neuts % (Manual) Band Neutrophils % Lymphocytes % (Manual) Reactive Lymphs % (Man) Monocytes % (Manual) Eosinophils % (Manual) Basophils % (Manual) Metamyelocytes % Myelocytes % Promyelocytes % Blast Cells % Nucleated RBC % Seg Neutrophils # Man Band Neutrophils # Lymphocytes # (Manual) Abs React Lymphs (Man) Monocytes # (Manual) Eosinophils # (Manual) Basophils # (Manual) Metamyelocytes # Myelocytes # Promyelocytes # Blast Cells # WBC Morphology Hypersegmented Neuts Hyposegmented Neuts Hypogranular Neuts Smudge Cells Toxic Granulation Toxic Vacuolation Dohle Bodies Pelger-Huet Anomaly Mahesh Rods Platelet Estimate Clumped Platelets Plt Clumps, EDTA Large Platelets Giant Platelets Platelet Satelliting Plt Morphology Comment RBC Morphology Dimorphic RBCs Polychromasia Hypochromasia Poikilocytosis Anisocytosis Microcytosis Macrocytosis Spherocytes Pappenheimer Bodies Sickle Cells Target Cells Tear Drop Cells Ovalocytes Helmet Cells [place] Bodies [place] Rings Nory Cells Bite Cells Crenated Cell Elliptocytes Acanthocytes (Spur) Rouleaux Hemoglobin C Crystals Schistocytes Malaria parasites Mk Bodies Hem Pathologist Commnt Sodium Potassium 5.7 H Chloride Carbon Dioxide Anion Gap BUN Creatinine Estimated GFR BUN/Creatinine Ratio Glucose POC Glucose Calcium Phosphorus Magnesium Blood Type Antibody Screen Crossmatch See Detail 06/27/18 06/27/18 06/27/18 10:56 10:56 12:07 WBC 25.2 H RBC 2.37 L Hgb 6.7 L Hct 21.6 L MCV 91 MCH 28 MCHC 31 L RDW 18.0 H Plt Count 302 Add Manual Diff Complete Total Counted 100 Seg Neuts % (Manual) 97.0 H Band Neutrophils % 0 Lymphocytes % (Manual) 1.0 L Reactive Lymphs % (Man) 0 Monocytes % (Manual) 2.0 Eosinophils % (Manual) 0 Basophils % (Manual) 0 Metamyelocytes % 0 Myelocytes % 0 Promyelocytes % 0 Blast Cells % 0 Nucleated RBC % Not Reportable Seg Neutrophils # Man 24.4 H Band Neutrophils # 0.0 Lymphocytes # (Manual) 0.3 L Abs React Lymphs (Man) 0.0 Monocytes # (Manual) 0.5 Eosinophils # (Manual) 0.0 Basophils # (Manual) 0.0 Metamyelocytes # 0.0 Myelocytes # 0.0 Promyelocytes # 0.0 Blast Cells # 0.0 WBC Morphology Not Reportable Hypersegmented Neuts Not Reportable Hyposegmented Neuts Not Reportable Hypogranular Neuts Not Reportable Smudge Cells Not Reportable Toxic Granulation Not Reportable Toxic Vacuolation Not Reportable Dohle Bodies Not Reportable Pelger-Huet Anomaly Not Reportable Mahesh Rods Not Reportable Platelet Estimate Cons Clumped Platelets Not Reportable Plt Clumps, EDTA Not Reportable Large Platelets Not Reportable Giant Platelets Not Reportable Platelet Satelliting Not Reportable Plt Morphology Comment Not Reportable RBC Morphology Not Reportable Dimorphic RBCs Not Reportable Polychromasia Not Reportable Hypochromasia Not Reportable Poikilocytosis Not Reportable Anisocytosis 1+ Microcytosis Not Reportable Macrocytosis Not Reportable Spherocytes Not Reportable Pappenheimer Bodies Not Reportable Sickle Cells Not Reportable Target Cells Not Reportable Tear Drop Cells Not Reportable Ovalocytes Not Reportable Helmet Cells Not Reportable [place] Bodies Not Reportable [place] Rings Not Reportable Onry Cells Not Reportable Bite Cells Not Reportable Crenated Cell Not Reportable Elliptocytes Not Reportable Acanthocytes (Spur) Not Reportable Rouleaux Not Reportable Hemoglobin C Crystals Not Reportable Schistocytes Not Reportable Malaria parasites Not Reportable Mk Bodies Not Reportable Hem Pathologist Commnt No Sodium Potassium Chloride Carbon Dioxide Anion Gap BUN Creatinine Estimated GFR BUN/Creatinine Ratio Glucose POC Glucose 156 H Calcium Phosphorus Magnesium Blood Type O POSITIVE Antibody Screen Negative Crossmatch See Detail 06/27/18 06/28/18 06/28/18 17:33 00:40 04:54 WBC RBC Hgb Hct MCV MCH MCHC RDW Plt Count Add Manual Diff Total Counted Seg Neuts % (Manual) Band Neutrophils % Lymphocytes % (Manual) Reactive Lymphs % (Man) Monocytes % (Manual) Eosinophils % (Manual) Basophils % (Manual) Metamyelocytes % Myelocytes % Promyelocytes % Blast Cells % Nucleated RBC % Seg Neutrophils # Man Band Neutrophils # Lymphocytes # (Manual) Abs React Lymphs (Man) Monocytes # (Manual) Eosinophils # (Manual) Basophils # (Manual) Metamyelocytes # Myelocytes # Promyelocytes # Blast Cells # WBC Morphology Hypersegmented Neuts Hyposegmented Neuts Hypogranular Neuts Smudge Cells Toxic Granulation Toxic Vacuolation Dohle Bodies Pelger-Huet Anomaly Mahesh Rods Platelet Estimate Clumped Platelets Plt Clumps, EDTA Large Platelets Giant Platelets Platelet Satelliting Plt Morphology Comment RBC Morphology Dimorphic RBCs Polychromasia Hypochromasia Poikilocytosis Anisocytosis Microcytosis Macrocytosis Spherocytes Pappenheimer Bodies Sickle Cells Target Cells Tear Drop Cells Ovalocytes Helmet Cells [place] Bodies [place] Rings [place] Cells Bite Cells Crenated Cell Elliptocytes Acanthocytes (Spur) Rouleaux Hemoglobin C Crystals Schistocytes Malaria parasites Mk Bodies Hem Pathologist Commnt Sodium 137 Potassium 4.5 D Chloride 99.5 Carbon Dioxide 27 Anion Gap 15 BUN 57 H Creatinine 3.3 H Estimated GFR 24 BUN/Creatinine Ratio 17 Glucose 107 H POC Glucose 123 H 127 H Calcium 9.1 Phosphorus 4.00 Magnesium 1.80 Blood Type Antibody Screen Crossmatch 06/28/18 05:52 WBC RBC Hgb Hct MCV MCH MCHC RDW Plt Count Add Manual Diff Total Counted Seg Neuts % (Manual) Band Neutrophils % Lymphocytes % (Manual) Reactive Lymphs % (Man) Monocytes % (Manual) Eosinophils % (Manual) Basophils % (Manual) Metamyelocytes % Myelocytes % Promyelocytes % Blast Cells % Nucleated RBC % Seg Neutrophils # Man Band Neutrophils # Lymphocytes # (Manual) Abs React Lymphs (Man) Monocytes # (Manual) Eosinophils # (Manual) Basophils # (Manual) Metamyelocytes # Myelocytes # Promyelocytes # Blast Cells # WBC Morphology Hypersegmented Neuts Hyposegmented Neuts Hypogranular Neuts Smudge Cells Toxic Granulation Toxic Vacuolation Dohle Bodies Pelger-Huet Anomaly Mahesh Rods Platelet Estimate Clumped Platelets Plt Clumps, EDTA Large Platelets Giant Platelets Platelet Satelliting Plt Morphology Comment RBC Morphology Dimorphic RBCs Polychromasia Hypochromasia Poikilocytosis Anisocytosis Microcytosis Macrocytosis Spherocytes Pappenheimer Bodies Sickle Cells Target Cells Tear Drop Cells Ovalocytes Helmet Cells [place] Bodies [place] Rings Nory Cells Bite Cells Crenated Cell Elliptocytes Acanthocytes (Spur) Rouleaux Hemoglobin C Crystals Schistocytes Malaria parasites Mk Bodies Hem Pathologist Commnt Sodium Potassium Chloride Carbon Dioxide Anion Gap BUN Creatinine Estimated GFR BUN/Creatinine Ratio Glucose POC Glucose 117 H Calcium Phosphorus Magnesium Blood Type Antibody Screen Crossmatch
[2018-06-28] MEDS: TPN ADULT 2,016 ML IV SCH (08:19)
--- NOTE | 2018-06-28 09:09 | Progress Note ---
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 Hypertensive urgency, Sinus tachycardia with HR 160s CTA negative for PE Hyperkalemia Hypernatrmia Metabolic acidosis Acute blood loss anemia Moderate to severe protein calorie malnutrition -VAP bundle addressed -Neurology consult notes reviewed -Daily SBTs as tolerated -Supportive care -Prognosis is poor - continue bronchodilators with pulmonary hygiene per RT - HD/UF for toxin and volume clearance - continue anti-infective's per ID recs - continue TPN for nutritional support - Malignancy per heme-oncologist - continue mobility protocol for pressure ulcer prevention - s/p surgery 05/26 (had ex-lap; matted abdominal organs, pus - Enterostomy tube decompression,loop colostomy and large triple lumen sump drainage of pelvis) - s/p bilateral nephrostomy tubes placed 05/14/[address] Freeman.(CTA negative for P.E.) - continue other care per attending / other consultants -discharge planning...probably SNF to complete antibiotics and for low level rehab Full code status Subjective Date of service: 06/28/18 Principal diagnosis: anemia, sq cell ca Interval history: Patient is seen today for: Acute hypoxic-hypercapnic respiratory failure, s/p cardiopulmonary arrest Seen and examined at bedside; 24-hour events reviewed; nursing and respiratory care staff consulted; Discussed in ICU-IDT rounds Remains unresponsive Brain flow studies, showed marked decreased intra-cranial blood flow, flow overlying the cerebral hemispheres on nuclear medicine study No fevers overnight. Objective Vital Signs - 12hr 06/27/18 06/27/18 06/27/18 21:15 21:30 21:45 Temperature 99.4 F Pulse Rate 95 H 98 H 97 H Pulse Rate [ From Monitor] Respiratory 30 H 30 H 30 H Rate Blood Pressure 113/73 136/90 139/90 O2 Sat by Pulse 97 100 100 Oximetry O2 Sat by Pulse 100 Oximetry [ Posterior Bilateral Throughout] 06/27/18 06/27/18 06/27/18 22:00 22:15 22:30 Temperature Pulse Rate 98 H 97 H 97 H Pulse Rate [ From Monitor] Respiratory 27 H 30 H 27 H Rate Blood Pressure 138/89 135/87 141/91 O2 Sat by Pulse 99 100 99 Oximetry O2 Sat by Pulse Oximetry [ Posterior Bilateral Throughout] 06/27/18 06/27/18 06/27/18 22:45 23:00 23:07 Temperature Pulse Rate 100 H 96 H 96 H Pulse Rate [ From Monitor] Respiratory 28 H 30 H 30 H Rate Blood Pressure 146/94 133/88 133/88 O2 Sat by Pulse 99 99 99 Oximetry O2 Sat by Pulse Oximetry [ Posterior Bilateral Throughout] 06/27/18 06/27/18 06/27/18 23:15 23:30 23:45 Temperature Pulse Rate 96 H 94 H 93 H Pulse Rate [ From Monitor] Respiratory 30 H 30 H 30 H Rate Blood Pressure 132/85 126/81 126/82 O2 Sat by Pulse 99 99 99 Oximetry O2 Sat by Pulse Oximetry [ Posterior Bilateral Throughout] 06/28/18 06/28/18 06/28/18 00:00 00:15 00:26 Temperature 98.8 F Pulse Rate 94 H 93 H 93 H Pulse Rate [ 93 H From Monitor] Respiratory 30 H 30 H Rate Blood Pressure 128/82 126/82 126/82 O2 Sat by Pulse 99 99 Oximetry O2 Sat by Pulse Oximetry [ Posterior Bilateral Throughout] 06/28/18 06/28/18 06/28/18 00:30 00:45 01:00 Temperature Pulse Rate 93 H 93 H 93 H Pulse Rate [ From Monitor] Respiratory 30 H 30 H 30 H Rate Blood Pressure 122/81 127/85 133/84 O2 Sat by Pulse 99 99 99 Oximetry O2 Sat by Pulse Oximetry [ Posterior Bilateral Throughout] 06/28/18 06/28/18 06/28/18 01:15 01:30 01:45 Temperature Pulse Rate 93 H 92 H 92 H Pulse Rate [ From Monitor] Respiratory 30 H 30 H 30 H Rate Blood Pressure 133/86 131/86 135/86 O2 Sat by Pulse 100 99 100 Oximetry O2 Sat by Pulse Oximetry [ Posterior Bilateral Throughout] 06/28/18 06/28/18 06/28/18 02:00 02:15 02:30 Temperature Pulse Rate 112 H 93 H 92 H Pulse Rate [ From Monitor] Respiratory 18 30 H 30 H Rate Blood Pressure 135/86 132/84 130/88 O2 Sat by Pulse 100 99 99 Oximetry O2 Sat by Pulse Oximetry [ Posterior Bilateral Throughout] 06/28/18 06/28/18 06/28/18 02:45 03:00 03:15 Temperature Pulse Rate 92 H 92 H 91 H Pulse Rate [ From Monitor] Respiratory 30 H 30 H 30 H Rate Blood Pressure 131/84 131/86 132/87 O2 Sat by Pulse 99 99 100 Oximetry O2 Sat by Pulse Oximetry [ Posterior Bilateral Throughout] 06/28/18 06/28/18 06/28/18 03:30 03:45 04:00 Temperature 98.1 F Pulse Rate 92 H 92 H 83 Pulse Rate [ 91 H From Monitor] Respiratory 30 H 30 H 30 H Rate Blood Pressure 135/88 130/90 114/59 O2 Sat by Pulse 100 99 94 Oximetry O2 Sat by Pulse Oximetry [ Posterior Bilateral Throughout] 06/28/18 06/28/18 06/28/18 04:15 04:30 04:45 Temperature Pulse Rate 93 H 91 H 91 H Pulse Rate [ From Monitor] Respiratory 30 H 30 H 27 H Rate Blood Pressure 139/93 135/89 136/89 O2 Sat by Pulse 100 100 99 Oximetry O2 Sat by Pulse Oximetry [ Posterior Bilateral Throughout] 06/28/18 06/28/18 06/28/18 05:00 05:15 05:30 Temperature Pulse Rate 90 91 H 90 Pulse Rate [ From Monitor] Respiratory 22 17 15 Rate Blood Pressure 128/85 132/89 128/82 O2 Sat by Pulse 99 100 100 Oximetry O2 Sat by Pulse Oximetry [ Posterior Bilateral Throughout] 06/28/18 06/28/18 06/28/18 05:45 05:55 06:00 Temperature Pulse Rate 92 H 91 H 90 Pulse Rate [ From Monitor] Respiratory 25 H 38 H Rate Blood Pressure 139/93 139/93 129/83 O2 Sat by Pulse 100 99 Oximetry O2 Sat by Pulse Oximetry [ Posterior Bilateral Throughout] 06/28/18 06/28/18 06/28/18 06:15 06:30 06:45 Temperature Pulse Rate 90 105 H 90 Pulse Rate [ From Monitor] Respiratory 17 30 H 27 H Rate Blood Pressure 132/85 128/84 129/86 O2 Sat by Pulse 99 99 99 Oximetry O2 Sat by Pulse Oximetry [ Posterior Bilateral Throughout] 06/28/18 06/28/18 07:00 07:13 Temperature Pulse Rate 90 90 Pulse Rate [ From Monitor] Respiratory 16 Rate Blood Pressure 129/86 129/86 O2 Sat by Pulse 99 99 Oximetry O2 Sat by Pulse Oximetry [ Posterior Bilateral Throughout] Constitutional: no acute distress, other (chronically ill looking middle aged AAM, normocephalic and atraumatic, ETT to vent) Eyes: non-icteric, other (dilated pupils) ENT: oropharynx moist, other (ETT 23 cm BEATRIS) Neck: supple, no lymphadenopathy, no JVD, other (no thyromegaly) Effort: normal (riding set ventilator rate), other (breathing at the set rate) Ascultation: Bilateral: diminished breath sounds (bases), rales (L>R base), rhonchi (scant in bases) Percussion: Bilateral: not dull, dull (bases) Cardiovascular: regular rate and rhythm, other (No R/M) Gastrointestinal: hypoactive bowel sounds, soft, tender (mild), non-distended, other (, scrotal edema) Integumentary: other (femoral vascath) Extremities: no cyanosis, no edema, pulses normal, no ischemia or petechiae Neurologic: other (obtunded) Psychiatric: other (Obtunded) CBC and BMP: 06/28/18 09:24 06/28/18 04:54 ABG, PT/INR, D-dimer: ABG POC ABG pH 7.251 (7.35-7.45) L 06/27/18 03:34 POC ABG pCO2 63.7 (35-45) H 06/27/18 03:34 POC ABG pO2 157 (80-105) H 06/27/18 03:34 POC ABG HCO3 28.0 06/27/18 03:34 POC ABG Total CO2 30 06/27/18 03:34 POC ABG O2 Sat 99 06/27/18 03:34 PT/INR, D-dimer PT 15.2 Sec. (12.2-14.9) H 06/23/18 08:34 INR 1.15 (0.87-1.13) H 06/23/18 08:34 Abnormal lab findings: Abnormal Labs 05/13/18 05/13/18 05/13/18 04:27 04:27 19:39 WBC RBC 3.13 L Hgb 9.4 L Hct 26.8 L MCV MCHC 35 H RDW Plt Count Lymph % (Auto) [place] % (Auto) 9.6 H Lymph # [place] # Seg Neutrophils % Seg Neuts % (Manual) Lymphocytes % (Manual) Monocytes % (Manual) Seg Neutrophils # Seg Neutrophils # Man Lymphocytes # (Manual) Monocytes # (Manual) PT INR APTT Heparin Anti-Xa Level POC ABG pH POC ABG pCO2 POC ABG pO2 Sodium 132 L Potassium 5.5 H Chloride 94.1 L Carbon Dioxide 19 L BUN 72 H Creatinine 14.4 H Glucose POC Glucose Lactic Acid Calcium Phosphorus Magnesium Iron TIBC AST ALT Alkaline Phosphatase Lactate Dehydrogenase Total Creatine Kinase C-Reactive Protein Total Protein Albumin 2.8 L Prealbumin CA 19-9 Antigen Folate PTH Intact Urine WBC (Auto) Urine Creatinine 66.0 H Urine Chloride 27.8 L Urine Total Protein 24 H Fluid Glucose Fluid Total Protein Vancomycin Trough Miscellaneous Test Crossmatch 05/13/18 05/14/18 05/14/18 20:00 05:05 05:05 WBC RBC Hgb Hct MCV MCHC RDW Plt Count Lymph % (Auto) [place] % (Auto) Lymph # [place] # Seg Neutrophils % Seg Neuts % (Manual) Lymphocytes % (Manual) Monocytes % (Manual) Seg Neutrophils # Seg Neutrophils # Man Lymphocytes # (Manual) Monocytes # (Manual) PT INR APTT Heparin Anti-Xa Level POC ABG pH POC ABG pCO2 POC ABG pO2 Sodium 132 L 131 L Potassium 5.2 H 5.8 H Chloride 93.0 L 95.6 L Carbon Dioxide 19 L 20 L BUN 74 H 81 H Creatinine 15.0 H 16.6 H Glucose 134 H 127 H POC Glucose Lactic Acid Calcium 8.2 L 7.9 L Phosphorus 6.30 H Magnesium Iron TIBC AST ALT Alkaline Phosphatase Lactate Dehydrogenase Total Creatine Kinase 236 H C-Reactive Protein Total Protein Albumin Prealbumin CA 19-9 Antigen Folate PTH Intact 65.37 H Urine WBC (Auto) Urine Creatinine Urine Chloride Urine Total Protein Fluid Glucose Fluid Total Protein Vancomycin Trough Miscellaneous Test Crossmatch 05/14/18 05/14/18 05/14/18 09:28 10:56 13:29 WBC RBC Hgb Hct MCV MCHC RDW Plt Count Lymph % (Auto) [place] % (Auto) Lymph # [place] # Seg Neutrophils % Seg Neuts % (Manual) Lymphocytes % (Manual) Monocytes % (Manual) Seg Neutrophils # Seg Neutrophils # Man Lymphocytes # (Manual) Monocytes # (Manual) PT INR APTT 38.2 H Heparin Anti-Xa Level POC ABG pH POC ABG pCO2 POC ABG pO2 Sodium Potassium Chloride Carbon Dioxide BUN Creatinine Glucose POC Glucose 127 H 126 H Lactic Acid Calcium Phosphorus Magnesium Iron TIBC AST ALT Alkaline Phosphatase Lactate Dehydrogenase Total Creatine Kinase C-Reactive Protein Total Protein Albumin Prealbumin CA 19-9 Antigen Folate PTH Intact Urine WBC (Auto) Urine Creatinine Urine Chloride Urine Total Protein Fluid Glucose Fluid Total Protein Vancomycin Trough Miscellaneous Test Crossmatch 05/15/18 05/15/18 05/16/18 08:06 08:06 07:02 WBC RBC 2.84 L 2.74 L Hgb 8.5 L 8.5 L Hct 24.2 L 23.5 L MCV MCHC 35 H 36 H RDW Plt Count Lymph % (Auto) [place] % (Auto) 10.4 H 11.0 H Lymph # 1.1 L [place] # 0.9 H Seg Neutrophils % 72.6 H Seg Neuts % (Manual) Lymphocytes % (Manual) Monocytes % (Manual) Seg Neutrophils # Seg Neutrophils # Man Lymphocytes # (Manual) Monocytes # (Manual) PT INR APTT Heparin Anti-Xa Level POC ABG pH POC ABG pCO2 POC ABG pO2 Sodium Potassium Chloride Carbon Dioxide 19 L BUN 66 H Creatinine 12.0 H Glucose 115 H POC Glucose Lactic Acid Calcium 8.1 L Phosphorus Magnesium Iron TIBC AST ALT Alkaline Phosphatase Lactate Dehydrogenase Total Creatine Kinase C-Reactive Protein Total Protein Albumin Prealbumin CA 19-9 Antigen Folate PTH Intact Urine WBC (Auto) Urine Creatinine Urine Chloride Urine Total Protein Fluid Glucose Fluid Total Protein Vancomycin Trough Miscellaneous Test Crossmatch 05/16/18 05/16/18 05/17/18 07:02 07:02 05:08 WBC RBC 2.78 L Hgb 8.2 L Hct 23.9 L MCV MCHC RDW Plt Count Lymph % (Auto) [place] % (Auto) 13.9 H Lymph # [place] # 0.9 H Seg Neutrophils % Seg Neuts % (Manual) Lymphocytes % (Manual) Monocytes % (Manual) Seg Neutrophils # Seg Neutrophils # Man Lymphocytes # (Manual) Monocytes # (Manual) PT INR APTT Heparin Anti-Xa Level POC ABG pH POC ABG pCO2 POC ABG pO2 Sodium Potassium Chloride Carbon Dioxide BUN 28 H Creatinine 2.4 H D Glucose POC Glucose Lactic Acid Calcium 8.3 L Phosphorus Magnesium 1.50 L Iron 24 L TIBC 160 L AST ALT Alkaline Phosphatase Lactate Dehydrogenase Total Creatine Kinase C-Reactive Protein Total Protein Albumin Prealbumin CA 19-9 Antigen Folate 5.39 L PTH Intact Urine WBC (Auto) Urine Creatinine Urine Chloride Urine Total Protein Fluid Glucose Fluid Total Protein Vancomycin Trough Miscellaneous Test Crossmatch 05/17/18 05/18/18 05/18/18 05:08 05:57 05:57 WBC RBC 2.79 L Hgb 8.3 L Hct 24.0 L MCV MCHC 35 H RDW Plt Count Lymph % (Auto) [place] % (Auto) 11.8 H Lymph # [place] # 0.9 H Seg Neutrophils % Seg Neuts % (Manual) Lymphocytes % (Manual) Monocytes % (Manual) Seg Neutrophils # Seg Neutrophils # Man Lymphocytes # (Manual) Monocytes # (Manual) PT INR APTT Heparin Anti-Xa Level POC ABG pH POC ABG pCO2 POC ABG pO2 Sodium Potassium Chloride Carbon Dioxide BUN Creatinine Glucose POC Glucose Lactic Acid Calcium 7.7 L 8.0 L Phosphorus Magnesium 1.60 L Iron TIBC AST ALT Alkaline Phosphatase Lactate Dehydrogenase Total Creatine Kinase C-Reactive Protein Total Protein Albumin Prealbumin CA 19-9 Antigen Folate PTH Intact Urine WBC (Auto) Urine Creatinine Urine Chloride Urine Total Protein Fluid Glucose Fluid Total Protein Vancomycin Trough Miscellaneous Test Crossmatch 05/19/18 05/19/18 05/20/18 05:33 05:33 05:38 WBC RBC 2.95 L Hgb 8.8 L Hct 25.8 L MCV MCHC RDW Plt Count Lymph % (Auto) 10.1 L [place] % (Auto) Lymph # 1.1 L [place] # Seg Neutrophils % 85.2 H Seg Neuts % (Manual) Lymphocytes % (Manual) Monocytes % (Manual) Seg Neutrophils # 9.0 H Seg Neutrophils # Man Lymphocytes # (Manual) Monocytes # (Manual) PT INR APTT Heparin Anti-Xa Level POC ABG pH POC ABG pCO2 POC ABG pO2 Sodium 135 L Potassium Chloride Carbon Dioxide BUN Creatinine Glucose 132 H POC Glucose Lactic Acid Calcium 7.8 L 8.3 L Phosphorus Magnesium 1.40 L Iron TIBC AST ALT Alkaline Phosphatase Lactate Dehydrogenase Total Creatine Kinase C-Reactive Protein Total Protein Albumin Prealbumin CA 19-9 Antigen Folate PTH Intact Urine WBC (Auto) Urine Creatinine Urine Chloride Urine Total Protein Fluid Glucose Fluid Total Protein Vancomycin Trough Miscellaneous Test Crossmatch 05/21/18 05/21/18 05/22/18 04:46 15:30 06:49 WBC 20.0 H RBC 2.70 L Hgb 7.8 L Hct 23.3 L MCV MCHC RDW Plt Count Lymph % (Auto) [place] % (Auto) Lymph # [place] # Seg Neutrophils % Seg Neuts % (Manual) 85.0 H Lymphocytes % (Manual) 4.0 L Monocytes % (Manual) Seg Neutrophils # Seg Neutrophils # Man 17.0 H Lymphocytes # (Manual) 0.8 L Monocytes # (Manual) PT INR APTT Heparin Anti-Xa Level POC ABG pH POC ABG pCO2 POC ABG pO2 Sodium 135 L Potassium 3.5 L Chloride Carbon Dioxide 21 L BUN 22 H Creatinine Glucose POC Glucose Lactic Acid Calcium 8.1 L Phosphorus Magnesium Iron TIBC AST ALT Alkaline Phosphatase Lactate Dehydrogenase Total Creatine Kinase C-Reactive Protein Total Protein Albumin Prealbumin CA 19-9 Antigen Folate PTH Intact Urine WBC (Auto) 28.0 H Urine Creatinine Urine Chloride Urine Total Protein Fluid Glucose Fluid Total Protein Vancomycin Trough Miscellaneous Test Crossmatch 05/22/18 05/22/18 05/23/18 06:49 11:23 09:03 WBC RBC Hgb Hct MCV MCHC RDW Plt Count Lymph % (Auto) [place] % (Auto) Lymph # [place] # Seg Neutrophils % Seg Neuts % (Manual) Lymphocytes % (Manual) Monocytes % (Manual) Seg Neutrophils # Seg Neutrophils # Man Lymphocytes # (Manual) Monocytes # (Manual) PT INR APTT Heparin Anti-Xa Level POC ABG pH POC ABG pCO2 POC ABG pO2 Sodium 134 L Potassium 3.5 L Chloride Carbon Dioxide 21 L BUN 35 H 36 H Creatinine 1.7 H Glucose 107 H POC Glucose Lactic Acid Calcium 7.9 L Phosphorus Magnesium 2.50 H Iron TIBC AST ALT Alkaline Phosphatase Lactate Dehydrogenase Total Creatine Kinase C-Reactive Protein Total Protein Albumin Prealbumin CA 19-9 Antigen Folate PTH Intact Urine WBC (Auto) Urine Creatinine Urine Chloride Urine Total Protein Fluid Glucose Fluid Total Protein Vancomycin Trough Miscellaneous Test Crossmatch See Detail 05/23/18 05/23/18 05/23/18 09:03 09:03 17:34 WBC 26.3 H RBC 3.57 L Hgb 10.4 L Hct 31.1 L D MCV MCHC RDW Plt Count Lymph % (Auto) [place] % (Auto) Lymph # [place] # Seg Neutrophils % Seg Neuts % (Manual) Lymphocytes % (Manual) Monocytes % (Manual) Seg Neutrophils # Seg Neutrophils # Man Lymphocytes # (Manual) Monocytes # (Manual) PT 18.3 H INR 1.43 H APTT 40.0 H Heparin Anti-Xa Level POC ABG pH POC ABG pCO2 POC ABG pO2 Sodium Potassium Chloride Carbon Dioxide BUN Creatinine Glucose POC Glucose 108 H Lactic Acid Calcium Phosphorus Magnesium Iron TIBC AST ALT Alkaline Phosphatase Lactate Dehydrogenase Total Creatine Kinase C-Reactive Protein Total Protein Albumin Prealbumin CA 19-9 Antigen Folate PTH Intact Urine WBC (Auto) Urine Creatinine Urine Chloride Urine Total Protein Fluid Glucose Fluid Total Protein Vancomycin Trough Miscellaneous Test Crossmatch 05/23/18 05/24/18 05/24/18 21:14 04:43 08:04 WBC RBC Hgb Hct MCV MCHC RDW Plt Count Lymph % (Auto) [place] % (Auto) Lymph # [place] # Seg Neutrophils % Seg Neuts % (Manual) Lymphocytes % (Manual) Monocytes % (Manual) Seg Neutrophils # Seg Neutrophils # Man Lymphocytes # (Manual) Monocytes # (Manual) PT INR APTT Heparin Anti-Xa Level POC ABG pH POC ABG pCO2 POC ABG pO2 Sodium 146 H Potassium Chloride 108.6 H Carbon Dioxide BUN 33 H Creatinine Glucose 109 H POC Glucose 110 H 106 H Lactic Acid Calcium 8.3 L Phosphorus Magnesium 2.50 H Iron TIBC AST ALT Alkaline Phosphatase Lactate Dehydrogenase Total Creatine Kinase C-Reactive Protein Total Protein Albumin Prealbumin CA 19-9 Antigen Folate PTH Intact Urine WBC (Auto) Urine Creatinine Urine Chloride Urine Total Protein Fluid Glucose Fluid Total Protein Vancomycin Trough Miscellaneous Test Crossmatch 05/25/18 05/25/18 05/25/18 05:42 05:49 19:50 WBC RBC Hgb Hct MCV MCHC RDW Plt Count Lymph % (Auto) [place] % (Auto) Lymph # [place] # Seg Neutrophils % Seg Neuts % (Manual) Lymphocytes % (Manual) Monocytes % (Manual) Seg Neutrophils # Seg Neutrophils # Man Lymphocytes # (Manual) Monocytes # (Manual) PT INR APTT Heparin Anti-Xa Level POC ABG pH POC ABG pCO2 POC ABG pO2 Sodium 150 H Potassium Chloride 112.5 H Carbon Dioxide BUN 34 H Creatinine Glucose 102 H POC Glucose 107 H Lactic Acid Calcium Phosphorus Magnesium Iron TIBC AST ALT Alkaline Phosphatase Lactate Dehydrogenase Total Creatine Kinase C-Reactive Protein 34.50 H Total Protein Albumin Prealbumin CA 19-9 Antigen Folate PTH Intact Urine WBC (Auto) Urine Creatinine Urine Chloride Urine Total Protein Fluid Glucose Fluid Total Protein Vancomycin Trough Miscellaneous Test Crossmatch 05/25/18 05/25/18 05/25/18 19:50 21:05 22:46 WBC RBC Hgb Hct MCV MCHC RDW Plt Count Lymph % (Auto) [place] % (Auto) Lymph # [place] # Seg Neutrophils % Seg Neuts % (Manual) Lymphocytes % (Manual) Monocytes % (Manual) Seg Neutrophils # Seg Neutrophils # Man Lymphocytes # (Manual) Monocytes # (Manual) PT INR APTT Heparin Anti-Xa Level POC ABG pH 7.483 H POC ABG pCO2 24.0 L POC ABG pO2 72 L Sodium Potassium Chloride Carbon Dioxide BUN Creatinine Glucose POC Glucose Lactic Acid 5.90 H* Calcium Phosphorus Magnesium Iron TIBC AST ALT Alkaline Phosphatase Lactate Dehydrogenase Total Creatine Kinase C-Reactive Protein Total Protein Albumin Prealbumin CA 19-9 Antigen Folate PTH Intact Urine WBC (Auto) Urine Creatinine Urine Chloride Urine Total Protein Fluid Glucose Fluid Total Protein Vancomycin Trough 25.1 H Miscellaneous Test Crossmatch 05/25/18 05/26/18 05/26/18 22:46 00:21 00:51 WBC RBC Hgb Hct MCV MCHC RDW Plt Count Lymph % (Auto) [place] % (Auto) Lymph # [place] # Seg Neutrophils % Seg Neuts % (Manual) Lymphocytes % (Manual) Monocytes % (Manual) Seg Neutrophils # Seg Neutrophils # Man Lymphocytes # (Manual) Monocytes # (Manual) PT INR APTT Heparin Anti-Xa Level POC ABG pH POC ABG pCO2 POC ABG pO2 Sodium Potassium Chloride Carbon Dioxide BUN Creatinine Glucose POC Glucose 133 H Lactic Acid 8.10 H* 6.20 H* Calcium Phosphorus Magnesium Iron TIBC AST ALT Alkaline Phosphatase Lactate Dehydrogenase Total Creatine Kinase C-Reactive Protein Total Protein Albumin Prealbumin CA 19-9 Antigen Folate PTH Intact Urine WBC (Auto) Urine Creatinine Urine Chloride Urine Total Protein Fluid Glucose Fluid Total Protein Vancomycin Trough Miscellaneous Test Crossmatch 05/26/18 05/26/18 05/26/18 01:13 02:24 02:24 WBC 18.7 H RBC Hgb 11.6 L Hct MCV MCHC RDW Plt Count Lymph % (Auto) [place] % (Auto) Lymph # [place] # Seg Neutrophils % Seg Neuts % (Manual) Lymphocytes % (Manual) Monocytes % (Manual) Seg Neutrophils # Seg Neutrophils # Man Lymphocytes # (Manual) Monocytes # (Manual) PT INR APTT Heparin Anti-Xa Level POC ABG pH POC ABG pCO2 POC ABG pO2 Sodium 147 H Potassium 6.2 H* D Chloride 111.9 H Carbon Dioxide 19 L BUN 80 H Creatinine 5.1 H D Glucose 112 H POC Glucose Lactic Acid 5.20 H* Calcium 6.7 L D Phosphorus Magnesium Iron TIBC AST ALT Alkaline Phosphatase Lactate Dehydrogenase Total Creatine Kinase C-Reactive Protein Total Protein Albumin Prealbumin CA 19-9 Antigen Folate PTH Intact Urine WBC (Auto) Urine Creatinine Urine Chloride Urine Total Protein Fluid Glucose Fluid Total Protein Vancomycin Trough Miscellaneous Test Crossmatch 05/26/18 05/26/18 05/26/18 04:20 04:20 05:39 WBC RBC Hgb Hct MCV MCHC RDW Plt Count Lymph % (Auto) [place] % (Auto) Lymph # [place] # Seg Neutrophils % Seg Neuts % (Manual) Lymphocytes % (Manual) Monocytes % (Manual) Seg Neutrophils # Seg Neutrophils # Man Lymphocytes # (Manual) Monocytes # (Manual) PT INR APTT Heparin Anti-Xa Level POC ABG pH POC ABG pCO2 POC ABG pO2 Sodium 150 H Potassium Chloride 110.0 H Carbon Dioxide 19 L BUN 66 H Creatinine Glucose 166 H POC Glucose 187 H Lactic Acid 5.10 H* Calcium 6.9 L Phosphorus 6.70 H D Magnesium Iron TIBC AST ALT Alkaline Phosphatase Lactate Dehydrogenase Total Creatine Kinase C-Reactive Protein Total Protein Albumin Prealbumin CA 19-9 Antigen Folate PTH Intact Urine WBC (Auto) Urine Creatinine Urine Chloride Urine Total Protein Fluid Glucose Fluid Total Protein Vancomycin Trough Miscellaneous Test Crossmatch 05/26/18 05/26/18 05/26/18 06:02 07:29 11:00 WBC RBC Hgb Hct MCV MCHC RDW Plt Count Lymph % (Auto) [place] % (Auto) Lymph # [place] # Seg Neutrophils % Seg Neuts % (Manual) Lymphocytes % (Manual) Monocytes % (Manual) Seg Neutrophils # Seg Neutrophils # Man Lymphocytes # (Manual) Monocytes # (Manual) PT INR APTT Heparin Anti-Xa Level POC ABG pH POC ABG pCO2 28.8 L POC ABG pO2 Sodium Potassium Chloride Carbon Dioxide BUN Creatinine Glucose POC Glucose Lactic Acid 4.80 H* 3.80 H* Calcium Phosphorus Magnesium Iron TIBC AST ALT Alkaline Phosphatase Lactate Dehydrogenase Total Creatine Kinase C-Reactive Protein Total Protein Albumin Prealbumin CA 19-9 Antigen Folate PTH Intact Urine WBC (Auto) Urine Creatinine Urine Chloride Urine Total Protein Fluid Glucose Fluid Total Protein Vancomycin Trough Miscellaneous Test Crossmatch 05/26/18 05/26/18 05/26/18 11:01 12:28 18:00 WBC RBC Hgb Hct MCV MCHC RDW Plt Count Lymph % (Auto) [place] % (Auto) Lymph # [place] # Seg Neutrophils % Seg Neuts % (Manual) Lymphocytes % (Manual) Monocytes % (Manual) Seg Neutrophils # Seg Neutrophils # Man Lymphocytes # (Manual) Monocytes # (Manual) PT INR APTT Heparin Anti-Xa Level POC ABG pH POC ABG pCO2 POC ABG pO2 Sodium 150 H 151 H Potassium 5.3 H D 6.1 H* Chloride 110.3 H 117.0 H Carbon Dioxide 21 L 20 L BUN 75 H 77 H Creatinine 4.3 H D 4.6 H Glucose 161 H POC Glucose 114 H Lactic Acid Calcium 7.5 L 6.7 L Phosphorus Magnesium Iron TIBC AST 1041 H ALT 406 H Alkaline Phosphatase 281 H Lactate Dehydrogenase Total Creatine Kinase C-Reactive Protein Total Protein 4.4 L Albumin 1.3 L Prealbumin CA 19-9 Antigen Folate PTH Intact Urine WBC (Auto) Urine Creatinine Urine Chloride Urine Total Protein Fluid Glucose Fluid Total Protein Vancomycin Trough Miscellaneous Test Crossmatch 05/26/18 05/26/18 05/27/18 18:02 19:17 01:01 WBC 21.7 H RBC 2.70 L Hgb 7.8 L D Hct 24.6 L D MCV MCHC RDW 15.3 H Plt Count Lymph % (Auto) [place] % (Auto) Lymph # [place] # Seg Neutrophils % Seg Neuts % (Manual) 94.0 H Lymphocytes % (Manual) 3.0 L Monocytes % (Manual) Seg Neutrophils # Seg Neutrophils # Man 20.4 H Lymphocytes # (Manual) 0.7 L Monocytes # (Manual) PT INR APTT Heparin Anti-Xa Level POC ABG pH 7.159 L 7.205 L POC ABG pCO2 54.5 H 53.0 H POC ABG pO2 252 H Sodium Potassium Chloride Carbon Dioxide BUN Creatinine Glucose POC Glucose Lactic Acid Calcium Phosphorus Magnesium Iron TIBC AST ALT Alkaline Phosphatase Lactate Dehydrogenase Total Creatine Kinase C-Reactive Protein Total Protein Albumin Prealbumin CA 19-9 Antigen Folate PTH Intact Urine WBC (Auto) Urine Creatinine Urine Chloride Urine Total Protein Fluid Glucose Fluid Total Protein Vancomycin Trough Miscellaneous Test Crossmatch 05/27/18 05/27/18 05/27/18 05:15 05:15 06:11 WBC 24.9 H RBC 2.86 L Hgb 8.1 L Hct 25.9 L MCV MCHC RDW 15.5 H Plt Count Lymph % (Auto) [place] % (Auto) Lymph # [place] # Seg Neutrophils % Seg Neuts % (Manual) Lymphocytes % (Manual) Monocytes % (Manual) Seg Neutrophils # Seg Neutrophils # Man Lymphocytes # (Manual) Monocytes # (Manual) PT INR APTT Heparin Anti-Xa Level POC ABG pH 7.265 L POC ABG pCO2 46.2 H POC ABG pO2 111 H Sodium 149 H Potassium 6.9 H* Chloride 113.5 H Carbon Dioxide BUN 89 H Creatinine 5.2 H Glucose 118 H POC Glucose Lactic Acid Calcium 7.0 L Phosphorus 9.70 H D Magnesium Iron TIBC AST 876 H ALT 408 H Alkaline Phosphatase Lactate Dehydrogenase Total Creatine Kinase C-Reactive Protein Total Protein 5.2 L Albumin 1.5 L Prealbumin CA 19-9 Antigen Folate PTH Intact Urine WBC (Auto) Urine Creatinine Urine Chloride Urine Total Protein Fluid Glucose Fluid Total Protein Vancomycin Trough Miscellaneous Test Crossmatch 05/27/18 05/27/18 05/27/18 08:48 10:22 10:22 WBC RBC Hgb Hct MCV MCHC RDW Plt Count Lymph % (Auto) [place] % (Auto) Lymph # [place] # Seg Neutrophils % Seg Neuts % (Manual) Lymphocytes % (Manual) Monocytes % (Manual) Seg Neutrophils # Seg Neutrophils # Man Lymphocytes # (Manual) Monocytes # (Manual) PT INR APTT Heparin Anti-Xa Level POC ABG pH POC ABG pCO2 POC ABG pO2 Sodium 146 H Potassium 6.1 H* Chloride 108.2 H Carbon Dioxide 21 L BUN 88 H Creatinine 5.6 H Glucose 163 H POC Glucose 164 H Lactic Acid Calcium 6.7 L Phosphorus Magnesium Iron TIBC AST ALT Alkaline Phosphatase Lactate Dehydrogenase Total Creatine Kinase C-Reactive Protein 40.70 H Total Protein Albumin Prealbumin CA 19-9 Antigen Folate PTH Intact Urine WBC (Auto) Urine Creatinine Urine Chloride Urine Total Protein Fluid Glucose Fluid Total Protein Vancomycin Trough Miscellaneous Test Crossmatch 05/27/18 05/27/18 05/27/18 13:02 17:39 23:27 WBC RBC Hgb Hct MCV MCHC RDW Plt Count Lymph % (Auto) [place] % (Auto) Lymph # [place] # Seg Neutrophils % Seg Neuts % (Manual) Lymphocytes % (Manual) Monocytes % (Manual) Seg Neutrophils # Seg Neutrophils # Man Lymphocytes # (Manual) Monocytes # (Manual) PT INR APTT Heparin Anti-Xa Level POC ABG pH POC ABG pCO2 POC ABG pO2 Sodium Potassium Chloride Carbon Dioxide BUN Creatinine Glucose POC Glucose 59 L 132 H Lactic Acid Calcium Phosphorus Magnesium Iron TIBC AST ALT Alkaline Phosphatase Lactate Dehydrogenase Total Creatine Kinase C-Reactive Protein Total Protein Albumin Prealbumin CA 19-9 Antigen Folate PTH Intact Urine WBC (Auto) Urine Creatinine Urine Chloride Urine Total Protein Fluid Glucose Fluid Total Protein Vancomycin Trough Miscellaneous Test Flexitest 1 H Crossmatch 05/27/18 05/28/18 05/28/18 Unknown 04:32 05:00 WBC RBC Hgb Hct MCV MCHC RDW Plt Count Lymph % (Auto) [place] % (Auto) Lymph # [place] # Seg Neutrophils % Seg Neuts % (Manual) Lymphocytes % (Manual) Monocytes % (Manual) Seg Neutrophils # Seg Neutrophils # Man Lymphocytes # (Manual) Monocytes # (Manual) PT INR APTT Heparin Anti-Xa Level POC ABG pH POC ABG pCO2 POC ABG pO2 134 H Sodium Potassium Chloride Carbon Dioxide BUN 69 H Creatinine 4.4 H Glucose 118 H POC Glucose Lactic Acid Calcium 8.0 L D Phosphorus 6.80 H D Magnesium Iron TIBC AST ALT Alkaline Phosphatase Lactate Dehydrogenase Total Creatine Kinase C-Reactive Protein Total Protein Albumin Prealbumin CA 19-9 Antigen Folate PTH Intact Urine WBC (Auto) 120.0 H Urine Creatinine Urine Chloride Urine Total Protein Fluid Glucose Fluid Total Protein Vancomycin Trough Miscellaneous Test Crossmatch 05/28/18 05/28/18 05/28/18 05:00 05:27 13:04 WBC 26.5 H RBC 2.69 L Hgb 7.7 L Hct 23.6 L MCV MCHC RDW Plt Count Lymph % (Auto) [place] % (Auto) Lymph # [place] # Seg Neutrophils % Seg Neuts % (Manual) 96.0 H Lymphocytes % (Manual) 0 L Monocytes % (Manual) Seg Neutrophils # Seg Neutrophils # Man 25.4 H Lymphocytes # (Manual) 0.0 L Monocytes # (Manual) PT INR APTT Heparin Anti-Xa Level POC ABG pH POC ABG pCO2 POC ABG pO2 Sodium Potassium Chloride Carbon Dioxide BUN Creatinine Glucose POC Glucose 128 H 155 H Lactic Acid Calcium Phosphorus Magnesium Iron TIBC AST ALT Alkaline Phosphatase Lactate Dehydrogenase Total Creatine Kinase C-Reactive Protein Total Protein Albumin Prealbumin CA 19-9 Antigen Folate PTH Intact Urine WBC (Auto) Urine Creatinine Urine Chloride Urine Total Protein Fluid Glucose Fluid Total Protein Vancomycin Trough Miscellaneous Test Crossmatch 05/28/18 05/29/18 05/29/18 17:56 03:35 04:00 WBC RBC Hgb Hct MCV MCHC RDW Plt Count Lymph % (Auto) [place] % (Auto) Lymph # [place] # Seg Neutrophils % Seg Neuts % (Manual) Lymphocytes % (Manual) Monocytes % (Manual) Seg Neutrophils # Seg Neutrophils # Man Lymphocytes # (Manual) Monocytes # (Manual) PT INR APTT Heparin Anti-Xa Level POC ABG pH 7.471 H POC ABG pCO2 POC ABG pO2 78 L Sodium Potassium Chloride Carbon Dioxide BUN 50 H Creatinine 3.9 H Glucose POC Glucose 110 H Lactic Acid Calcium 7.7 L Phosphorus Magnesium 1.50 L Iron TIBC AST 218 H ALT 204 H Alkaline Phosphatase Lactate Dehydrogenase Total Creatine Kinase C-Reactive Protein Total Protein 5.4 L Albumin 1.6 L Prealbumin CA 19-9 Antigen Folate PTH Intact Urine WBC (Auto) Urine Creatinine Urine Chloride Urine Total Protein Fluid Glucose Fluid Total Protein Vancomycin Trough Miscellaneous Test Crossmatch 05/29/18 05/29/18 05/30/18 11:51 23:56 04:54 WBC RBC Hgb Hct MCV MCHC RDW Plt Count Lymph % (Auto) [place] % (Auto) Lymph # [place] # Seg Neutrophils % Seg Neuts % (Manual) Lymphocytes % (Manual) Monocytes % (Manual) Seg Neutrophils # Seg Neutrophils # Man Lymphocytes # (Manual) Monocytes # (Manual) PT INR APTT Heparin Anti-Xa Level POC ABG pH POC ABG pCO2 POC ABG pO2 Sodium Potassium Chloride Carbon Dioxide BUN Creatinine Glucose POC Glucose 131 H 119 H 115 H Lactic Acid Calcium Phosphorus Magnesium Iron TIBC AST ALT Alkaline Phosphatase Lactate Dehydrogenase Total Creatine Kinase C-Reactive Protein Total Protein Albumin Prealbumin CA 19-9 Antigen Folate PTH Intact Urine WBC (Auto) Urine Creatinine Urine Chloride Urine Total Protein Fluid Glucose Fluid Total Protein Vancomycin Trough Miscellaneous Test Crossmatch 05/30/18 05/30/18 05/30/18 05:07 05:15 05:15 WBC 16.2 H RBC 2.53 L Hgb 7.4 L Hct 21.9 L MCV MCHC RDW Plt Count Lymph % (Auto) [place] % (Auto) Lymph # [place] # Seg Neutrophils % Seg Neuts % (Manual) Lymphocytes % (Manual) Monocytes % (Manual) Seg Neutrophils # Seg Neutrophils # Man Lymphocytes # (Manual) Monocytes # (Manual) PT INR APTT Heparin Anti-Xa Level POC ABG pH POC ABG pCO2 34.5 L POC ABG pO2 133 H Sodium 135 L Potassium Chloride 97.5 L Carbon Dioxide BUN 69 H Creatinine 5.4 H Glucose 105 H POC Glucose Lactic Acid Calcium 7.5 L Phosphorus 5.30 H D Magnesium Iron TIBC AST ALT Alkaline Phosphatase Lactate Dehydrogenase Total Creatine Kinase C-Reactive Protein Total Protein Albumin Prealbumin CA 19-9 Antigen Folate PTH Intact Urine WBC (Auto) Urine Creatinine Urine Chloride Urine Total Protein Fluid Glucose Fluid Total Protein Vancomycin Trough Miscellaneous Test Crossmatch 05/30/18 05/30/18 05/31/18 12:13 17:10 04:50 WBC 18.7 H RBC 2.86 L Hgb 8.2 L Hct 24.8 L MCV MCHC RDW Plt Count Lymph % (Auto) [place] % (Auto) Lymph # [place] # Seg Neutrophils % Seg Neuts % (Manual) 91.0 H Lymphocytes % (Manual) 2.0 L Monocytes % (Manual) Seg Neutrophils # Seg Neutrophils # Man 17.0 H Lymphocytes # (Manual) 0.4 L Monocytes # (Manual) PT INR APTT Heparin Anti-Xa Level POC ABG pH POC ABG pCO2 POC ABG pO2 Sodium Potassium Chloride Carbon Dioxide BUN Creatinine Glucose POC Glucose 132 H 122 H Lactic Acid Calcium Phosphorus Magnesium Iron TIBC AST ALT Alkaline Phosphatase Lactate Dehydrogenase Total Creatine Kinase C-Reactive Protein Total Protein Albumin Prealbumin CA 19-9 Antigen Folate PTH Intact Urine WBC (Auto) Urine Creatinine Urine Chloride Urine Total Protein Fluid Glucose Fluid Total Protein Vancomycin Trough Miscellaneous Test Crossmatch 05/31/18 05/31/18 05/31/18 04:50 05:45 11:37 WBC RBC Hgb Hct MCV MCHC RDW Plt Count Lymph % (Auto) [place] % (Auto) Lymph # [place] # Seg Neutrophils % Seg Neuts % (Manual) Lymphocytes % (Manual) Monocytes % (Manual) Seg Neutrophils # Seg Neutrophils # Man Lymphocytes # (Manual) Monocytes # (Manual) PT INR APTT Heparin Anti-Xa Level POC ABG pH POC ABG pCO2 POC ABG pO2 Sodium 132 L Potassium Chloride 92.4 L Carbon Dioxide BUN 77 H Creatinine 5.9 H Glucose POC Glucose 111 H 136 H Lactic Acid Calcium 7.3 L Phosphorus 6.40 H D Magnesium Iron TIBC AST ALT Alkaline Phosphatase Lactate Dehydrogenase Total Creatine Kinase C-Reactive Protein Total Protein Albumin Prealbumin CA 19-9 Antigen Folate PTH Intact Urine WBC (Auto) Urine Creatinine Urine Chloride Urine Total Protein Fluid Glucose Fluid Total Protein Vancomycin Trough Miscellaneous Test Crossmatch 05/31/18 06/01/18 06/01/18 17:52 00:09 04:00 WBC RBC Hgb Hct MCV MCHC RDW Plt Count Lymph % (Auto) [place] % (Auto) Lymph # [place] # Seg Neutrophils % Seg Neuts % (Manual) Lymphocytes % (Manual) Monocytes % (Manual) Seg Neutrophils # Seg Neutrophils # Man Lymphocytes # (Manual) Monocytes # (Manual) PT INR APTT Heparin Anti-Xa Level POC ABG pH POC ABG pCO2 POC ABG pO2 Sodium Potassium Chloride 97.5 L Carbon Dioxide BUN 49 H Creatinine 4.2 H Glucose 104 H POC Glucose 115 H 114 H Lactic Acid Calcium 7.3 L Phosphorus 4.70 H D Magnesium Iron TIBC AST ALT Alkaline Phosphatase Lactate Dehydrogenase Total Creatine Kinase C-Reactive Protein Total Protein Albumin Prealbumin CA 19-9 Antigen Folate PTH Intact Urine WBC (Auto) Urine Creatinine Urine Chloride Urine Total Protein Fluid Glucose Fluid Total Protein Vancomycin Trough Miscellaneous Test Crossmatch 06/01/18 06/01/18 06/02/18 11:10 17:56 00:15 WBC RBC Hgb Hct MCV MCHC RDW Plt Count Lymph % (Auto) [place] % (Auto) Lymph # [place] # Seg Neutrophils % Seg Neuts % (Manual) Lymphocytes % (Manual) Monocytes % (Manual) Seg Neutrophils # Seg Neutrophils # Man Lymphocytes # (Manual) Monocytes # (Manual) PT INR APTT Heparin Anti-Xa Level POC ABG pH POC ABG pCO2 POC ABG pO2 Sodium Potassium Chloride Carbon Dioxide BUN Creatinine Glucose POC Glucose 123 H 126 H 135 H Lactic Acid Calcium Phosphorus Magnesium Iron TIBC AST ALT Alkaline Phosphatase Lactate Dehydrogenase Total Creatine Kinase C-Reactive Protein Total Protein Albumin Prealbumin CA 19-9 Antigen Folate PTH Intact Urine WBC (Auto) Urine Creatinine Urine Chloride Urine Total Protein Fluid Glucose Fluid Total Protein Vancomycin Trough Miscellaneous Test Crossmatch 06/02/18 06/02/18 06/02/18 05:23 12:42 13:05 WBC RBC Hgb Hct MCV MCHC RDW Plt Count Lymph % (Auto) [place] % (Auto) Lymph # [place] # Seg Neutrophils % Seg Neuts % (Manual) Lymphocytes % (Manual) Monocytes % (Manual) Seg Neutrophils # Seg Neutrophils # Man Lymphocytes # (Manual) Monocytes # (Manual) PT 17.1 H INR 1.34 H APTT Heparin Anti-Xa Level POC ABG pH POC ABG pCO2 POC ABG pO2 Sodium Potassium Chloride Carbon Dioxide BUN Creatinine Glucose POC Glucose 135 H 142 H Lactic Acid Calcium Phosphorus Magnesium Iron TIBC AST ALT Alkaline Phosphatase Lactate Dehydrogenase Total Creatine Kinase C-Reactive Protein Total Protein Albumin Prealbumin CA 19-9 Antigen Folate PTH Intact Urine WBC (Auto) Urine Creatinine Urine Chloride Urine Total Protein Fluid Glucose Fluid Total Protein Vancomycin Trough Miscellaneous Test Crossmatch 06/02/18 06/02/18 06/03/18 Unknown Unknown 00:54 WBC 20.8 H RBC 2.67 L Hgb 7.7 L Hct 23.0 L MCV MCHC RDW Plt Count 500 H Lymph % (Auto) [place] % (Auto) Lymph # [place] # Seg Neutrophils % Seg Neuts % (Manual) Lymphocytes % (Manual) Monocytes % (Manual) Seg Neutrophils # Seg Neutrophils # Man Lymphocytes # (Manual) Monocytes # (Manual) PT INR APTT Heparin Anti-Xa Level POC ABG pH POC ABG pCO2 POC ABG pO2 Sodium 136 L Potassium 3.5 L Chloride 96.9 L Carbon Dioxide BUN 62 H Creatinine 4.9 H Glucose 133 H POC Glucose 125 H Lactic Acid Calcium 7.2 L Phosphorus 5.00 H Magnesium Iron TIBC AST 46 H ALT 66 H Alkaline Phosphatase Lactate Dehydrogenase Total Creatine Kinase C-Reactive Protein Total Protein 5.7 L Albumin 1.5 L Prealbumin CA 19-9 Antigen Folate PTH Intact Urine WBC (Auto) Urine Creatinine Urine Chloride Urine Total Protein Fluid Glucose Fluid Total Protein Vancomycin Trough Miscellaneous Test Crossmatch 06/03/18 06/03/18 06/03/18 03:31 09:18 09:18 WBC RBC Hgb Hct MCV MCHC RDW Plt Count Lymph % (Auto) [place] % (Auto) Lymph # [place] # Seg Neutrophils % Seg Neuts % (Manual) Lymphocytes % (Manual) Monocytes % (Manual) Seg Neutrophils # Seg Neutrophils # Man Lymphocytes # (Manual) Monocytes # (Manual) PT 17.1 H INR 1.34 H APTT Heparin Anti-Xa Level POC ABG pH POC ABG pCO2 POC ABG pO2 Sodium 136 L Potassium Chloride Carbon Dioxide BUN 41 H Creatinine 3.4 H Glucose 129 H POC Glucose Lactic Acid Calcium 7.4 L Phosphorus Magnesium Iron TIBC AST ALT Alkaline Phosphatase Lactate Dehydrogenase Total Creatine Kinase C-Reactive Protein 11.10 H Total Protein Albumin Prealbumin CA 19-9 Antigen Folate PTH Intact Urine WBC (Auto) Urine Creatinine Urine Chloride Urine Total Protein Fluid Glucose Fluid Total Protein Vancomycin Trough Miscellaneous Test Crossmatch 06/03/18 06/03/18 06/03/18 16:07 21:18 Unknown WBC RBC Hgb Hct MCV MCHC RDW Plt Count Lymph % (Auto) [place] % (Auto) Lymph # [place] # Seg Neutrophils % Seg Neuts % (Manual) Lymphocytes % (Manual) Monocytes % (Manual) Seg Neutrophils # Seg Neutrophils # Man Lymphocytes # (Manual) Monocytes # (Manual) PT INR APTT Heparin Anti-Xa Level POC ABG pH POC ABG pCO2 POC ABG pO2 Sodium Potassium Chloride Carbon Dioxide BUN Creatinine Glucose POC Glucose 144 H 128 H Lactic Acid Calcium Phosphorus Magnesium Iron TIBC AST ALT Alkaline Phosphatase Lactate Dehydrogenase Total Creatine Kinase C-Reactive Protein Total Protein Albumin Prealbumin CA 19-9 Antigen Folate PTH Intact Urine WBC (Auto) Urine Creatinine Urine Chloride Urine Total Protein Fluid Glucose 10 L Fluid Total Protein 3.7 L Vancomycin Trough Miscellaneous Test Crossmatch 06/04/18 06/04/18 06/04/18 04:31 06:14 11:38 WBC RBC Hgb Hct MCV MCHC RDW Plt Count Lymph % (Auto) [place] % (Auto) Lymph # [place] # Seg Neutrophils % Seg Neuts % (Manual) Lymphocytes % (Manual) Monocytes % (Manual) Seg Neutrophils # Seg Neutrophils # Man Lymphocytes # (Manual) Monocytes # (Manual) PT INR APTT Heparin Anti-Xa Level POC ABG pH POC ABG pCO2 POC ABG pO2 Sodium Potassium Chloride Carbon Dioxide BUN 55 H Creatinine 3.7 H Glucose 151 H POC Glucose 145 H 129 H Lactic Acid Calcium 7.8 L Phosphorus 4.60 H Magnesium Iron TIBC AST ALT Alkaline Phosphatase Lactate Dehydrogenase Total Creatine Kinase C-Reactive Protein Total Protein Albumin Prealbumin CA 19-9 Antigen Folate PTH Intact Urine WBC (Auto) Urine Creatinine Urine Chloride Urine Total Protein Fluid Glucose Fluid Total Protein Vancomycin Trough Miscellaneous Test Crossmatch 06/04/18 06/04/18 06/04/18 17:09 20:00 21:29 WBC RBC Hgb 8.8 L Hct 27.3 L MCV MCHC RDW Plt Count Lymph % (Auto) [place] % (Auto) Lymph # [place] # Seg Neutrophils % Seg Neuts % (Manual) Lymphocytes % (Manual) Monocytes % (Manual) Seg Neutrophils # Seg Neutrophils # Man Lymphocytes # (Manual) Monocytes # (Manual) PT INR APTT Heparin Anti-Xa Level POC ABG pH POC ABG pCO2 POC ABG pO2 Sodium Potassium Chloride Carbon Dioxide BUN Creatinine Glucose POC Glucose 142 H 130 H Lactic Acid Calcium Phosphorus Magnesium Iron TIBC AST ALT Alkaline Phosphatase Lactate Dehydrogenase Total Creatine Kinase C-Reactive Protein Total Protein Albumin Prealbumin CA 19-9 Antigen Folate PTH Intact Urine WBC (Auto) Urine Creatinine Urine Chloride Urine Total Protein Fluid Glucose Fluid Total Protein Vancomycin Trough Miscellaneous Test Crossmatch 06/05/18 06/05/18 06/05/18 06:30 07:00 07:00 WBC 19.3 H RBC 2.94 L Hgb 8.3 L Hct 25.6 L MCV MCHC RDW 15.7 H Plt Count 568 H Lymph % (Auto) 4.7 L [place] % (Auto) Lymph # 0.9 L [place] # 1.1 H Seg Neutrophils % 88.9 H Seg Neuts % (Manual) Lymphocytes % (Manual) Monocytes % (Manual) Seg Neutrophils # 17.2 H Seg Neutrophils # Man Lymphocytes # (Manual) Monocytes # (Manual) PT INR APTT Heparin Anti-Xa Level POC ABG pH POC ABG pCO2 POC ABG pO2 Sodium Potassium 3.4 L D Chloride Carbon Dioxide BUN 67 H Creatinine 3.6 H Glucose 145 H POC Glucose 153 H Lactic Acid Calcium 7.9 L Phosphorus 4.60 H Magnesium Iron TIBC AST ALT Alkaline Phosphatase Lactate Dehydrogenase Total Creatine Kinase C-Reactive Protein Total Protein Albumin Prealbumin CA 19-9 Antigen Folate PTH Intact Urine WBC (Auto) Urine Creatinine Urine Chloride Urine Total Protein Fluid Glucose Fluid Total Protein Vancomycin Trough Miscellaneous Test Crossmatch 06/05/18 06/05/18 06/06/18 12:10 16:01 06:39 WBC RBC Hgb Hct MCV MCHC RDW Plt Count Lymph % (Auto) [place] % (Auto) Lymph # [place] # Seg Neutrophils % Seg Neuts % (Manual) Lymphocytes % (Manual) Monocytes % (Manual) Seg Neutrophils # Seg Neutrophils # Man Lymphocytes # (Manual) Monocytes # (Manual) PT INR APTT Heparin Anti-Xa Level POC ABG pH POC ABG pCO2 POC ABG pO2 Sodium Potassium Chloride Carbon Dioxide BUN Creatinine Glucose POC Glucose 150 H 129 H 131 H Lactic Acid Calcium Phosphorus Magnesium Iron TIBC AST ALT Alkaline Phosphatase Lactate Dehydrogenase Total Creatine Kinase C-Reactive Protein Total Protein Albumin Prealbumin CA 19-9 Antigen Folate PTH Intact Urine WBC (Auto) Urine Creatinine Urine Chloride Urine Total Protein Fluid Glucose Fluid Total Protein Vancomycin Trough Miscellaneous Test Crossmatch 06/06/18 06/06/18 06/06/18 07:14 07:14 07:14 WBC 16.5 H RBC 2.84 L Hgb 8.1 L Hct 25.2 L MCV MCHC RDW 16.4 H Plt Count 526 H Lymph % (Auto) 6.5 L [place] % (Auto) Lymph # 1.1 L [place] # 1.2 H Seg Neutrophils % 85.3 H Seg Neuts % (Manual) Lymphocytes % (Manual) Monocytes % (Manual) Seg Neutrophils # 14.1 H Seg Neutrophils # Man Lymphocytes # (Manual) Monocytes # (Manual) PT INR APTT Heparin Anti-Xa Level POC ABG pH POC ABG pCO2 POC ABG pO2 Sodium Potassium Chloride 109.1 H Carbon Dioxide 21 L BUN 76 H Creatinine 3.5 H Glucose 111 H POC Glucose Lactic Acid Calcium 8.1 L Phosphorus Magnesium Iron TIBC AST ALT Alkaline Phosphatase Lactate Dehydrogenase Total Creatine Kinase C-Reactive Protein 4.70 H Total Protein Albumin Prealbumin CA 19-9 Antigen Folate PTH Intact Urine WBC (Auto) Urine Creatinine Urine Chloride Urine Total Protein Fluid Glucose Fluid Total Protein Vancomycin Trough Miscellaneous Test Crossmatch 06/06/18 06/06/18 06/06/18 11:15 18:00 23:58 WBC RBC Hgb Hct MCV MCHC RDW Plt Count Lymph % (Auto) [place] % (Auto) Lymph # [place] # Seg Neutrophils % Seg Neuts % (Manual) Lymphocytes % (Manual) Monocytes % (Manual) Seg Neutrophils # Seg Neutrophils # Man Lymphocytes # (Manual) Monocytes # (Manual) PT INR APTT Heparin Anti-Xa Level POC ABG pH POC ABG pCO2 POC ABG pO2 Sodium Potassium Chloride Carbon Dioxide BUN Creatinine Glucose POC Glucose 127 H 130 H 114 H Lactic Acid Calcium Phosphorus Magnesium Iron TIBC AST ALT Alkaline Phosphatase Lactate Dehydrogenase Total Creatine Kinase C-Reactive Protein Total Protein Albumin Prealbumin CA 19-9 Antigen Folate PTH Intact Urine WBC (Auto) Urine Creatinine Urine Chloride Urine Total Protein Fluid Glucose Fluid Total Protein Vancomycin Trough Miscellaneous Test Crossmatch 06/07/18 06/07/18 06/07/18 05:45 05:45 05:54 WBC 15.5 H RBC 2.60 L Hgb 7.4 L Hct 23.1 L MCV MCHC RDW 16.5 H Plt Count 506 H Lymph % (Auto) 5.3 L [place] % (Auto) Lymph # 0.8 L [place] # 1.0 H Seg Neutrophils % 86.6 H Seg Neuts % (Manual) Lymphocytes % (Manual) Monocytes % (Manual) Seg Neutrophils # 13.4 H Seg Neutrophils # Man Lymphocytes # (Manual) Monocytes # (Manual) PT INR APTT Heparin Anti-Xa Level POC ABG pH POC ABG pCO2 POC ABG pO2 Sodium Potassium Chloride 108.4 H Carbon Dioxide BUN 84 H Creatinine 3.5 H Glucose 119 H POC Glucose 114 H Lactic Acid Calcium 8.1 L Phosphorus 5.10 H Magnesium Iron TIBC AST ALT Alkaline Phosphatase Lactate Dehydrogenase Total Creatine Kinase C-Reactive Protein Total Protein Albumin Prealbumin CA 19-9 Antigen Folate PTH Intact Urine WBC (Auto) Urine Creatinine Urine Chloride Urine Total Protein Fluid Glucose Fluid Total Protein Vancomycin Trough Miscellaneous Test Crossmatch 06/07/18 06/08/18 06/08/18 12:15 05:05 05:24 WBC RBC Hgb Hct MCV MCHC RDW Plt Count Lymph % (Auto) [place] % (Auto) Lymph # [place] # Seg Neutrophils % Seg Neuts % (Manual) Lymphocytes % (Manual) Monocytes % (Manual) Seg Neutrophils # Seg Neutrophils # Man Lymphocytes # (Manual) Monocytes # (Manual) PT INR APTT Heparin Anti-Xa Level POC ABG pH POC ABG pCO2 POC ABG pO2 Sodium 148 H Potassium Chloride 112.4 H Carbon Dioxide BUN 89 H Creatinine 3.4 H Glucose 120 H POC Glucose 148 H 115 H Lactic Acid Calcium 7.9 L Phosphorus Magnesium Iron TIBC AST ALT Alkaline Phosphatase Lactate Dehydrogenase Total Creatine Kinase C-Reactive Protein Total Protein Albumin Prealbumin CA 19-9 Antigen Folate PTH Intact Urine WBC (Auto) Urine Creatinine Urine Chloride Urine Total Protein Fluid Glucose Fluid Total Protein Vancomycin Trough Miscellaneous Test Crossmatch 06/08/18 06/08/18 06/08/18 21:36 21:43 21:43 WBC RBC 2.98 L Hgb 8.8 L Hct 26.6 L MCV MCHC RDW 16.7 H Plt Count 463 H Lymph % (Auto) 7.9 L [place] % (Auto) Lymph # 0.8 L [place] # Seg Neutrophils % 84.8 H Seg Neuts % (Manual) Lymphocytes % (Manual) Monocytes % (Manual) Seg Neutrophils # 8.6 H Seg Neutrophils # Man Lymphocytes # (Manual) Monocytes # (Manual) PT INR APTT Heparin Anti-Xa Level POC ABG pH POC ABG pCO2 POC ABG pO2 Sodium Potassium Chloride Carbon Dioxide BUN Creatinine Glucose POC Glucose Lactic Acid Calcium Phosphorus Magnesium Iron TIBC AST ALT Alkaline Phosphatase Lactate Dehydrogenase 297 H Total Creatine Kinase C-Reactive Protein Total Protein Albumin Prealbumin CA 19-9 Antigen 57 H Folate PTH Intact Urine WBC (Auto) Urine Creatinine Urine Chloride Urine Total Protein Fluid Glucose Fluid Total Protein Vancomycin Trough Miscellaneous Test Crossmatch 06/09/18 06/09/18 06/09/18 00:05 05:34 05:50 WBC RBC Hgb Hct MCV MCHC RDW Plt Count Lymph % (Auto) [place] % (Auto) Lymph # [place] # Seg Neutrophils % Seg Neuts % (Manual) Lymphocytes % (Manual) Monocytes % (Manual) Seg Neutrophils # Seg Neutrophils # Man Lymphocytes # (Manual) Monocytes # (Manual) PT INR APTT Heparin Anti-Xa Level POC ABG pH POC ABG pCO2 POC ABG pO2 Sodium 153 H Potassium Chloride 117.3 H Carbon Dioxide BUN 84 H Creatinine 3.2 H Glucose 117 H POC Glucose 140 H 146 H Lactic Acid Calcium 7.9 L Phosphorus Magnesium Iron TIBC AST ALT Alkaline Phosphatase Lactate Dehydrogenase Total Creatine Kinase C-Reactive Protein Total Protein Albumin Prealbumin CA 19-9 Antigen Folate PTH Intact Urine WBC (Auto) Urine Creatinine Urine Chloride Urine Total Protein Fluid Glucose Fluid Total Protein Vancomycin Trough Miscellaneous Test Crossmatch 06/09/18 06/09/18 06/09/18 05:50 07:37 10:34 WBC RBC 2.32 L Hgb 6.8 L Hct 20.7 L MCV MCHC RDW 16.7 H Plt Count Lymph % (Auto) [place] % (Auto) Lymph # [place] # Seg Neutrophils % Seg Neuts % (Manual) Lymphocytes % (Manual) Monocytes % (Manual) Seg Neutrophils # Seg Neutrophils # Man Lymphocytes # (Manual) Monocytes # (Manual) PT INR APTT Heparin Anti-Xa Level POC ABG pH POC ABG pCO2 POC ABG pO2 Sodium 149 H Potassium Chloride 114.6 H Carbon Dioxide BUN 84 H Creatinine 3.1 H Glucose 137 H POC Glucose Lactic Acid Calcium 7.7 L Phosphorus Magnesium Iron TIBC AST ALT Alkaline Phosphatase Lactate Dehydrogenase Total Creatine Kinase C-Reactive Protein Total Protein Albumin Prealbumin CA 19-9 Antigen Folate PTH Intact Urine WBC (Auto) Urine Creatinine Urine Chloride Urine Total Protein Fluid Glucose Fluid Total Protein Vancomycin Trough Miscellaneous Test Flexitest 1 H Crossmatch 06/09/18 06/09/18 06/09/18 10:41 11:56 13:24 WBC RBC 2.43 L Hgb 7.2 L Hct 21.6 L MCV MCHC RDW 16.8 H Plt Count Lymph % (Auto) [place] % (Auto) Lymph # [place] # Seg Neutrophils % Seg Neuts % (Manual) Lymphocytes % (Manual) Monocytes % (Manual) Seg Neutrophils # Seg Neutrophils # Man Lymphocytes # (Manual) Monocytes # (Manual) PT INR APTT Heparin Anti-Xa Level POC ABG pH POC ABG pCO2 POC ABG pO2 Sodium Potassium Chloride Carbon Dioxide BUN Creatinine Glucose POC Glucose 141 H Lactic Acid Calcium Phosphorus Magnesium Iron TIBC AST ALT Alkaline Phosphatase Lactate Dehydrogenase Total Creatine Kinase C-Reactive Protein Total Protein Albumin Prealbumin CA 19-9 Antigen Folate PTH Intact Urine WBC (Auto) Urine Creatinine Urine Chloride Urine Total Protein Fluid Glucose Fluid Total Protein Vancomycin Trough Miscellaneous Test Crossmatch See Detail 06/09/18 06/09/18 06/10/18 18:18 23:13 05:26 WBC RBC Hgb Hct MCV MCHC RDW Plt Count Lymph % (Auto) [place] % (Auto) Lymph # [place] # Seg Neutrophils % Seg Neuts % (Manual) Lymphocytes % (Manual) Monocytes % (Manual) Seg Neutrophils # Seg Neutrophils # Man Lymphocytes # (Manual) Monocytes # (Manual) PT INR APTT Heparin Anti-Xa Level POC ABG pH POC ABG pCO2 POC ABG pO2 Sodium 148 H Potassium Chloride 114.7 H Carbon Dioxide 21 L BUN 79 H Creatinine 3.2 H Glucose 121 H POC Glucose 156 H 163 H Lactic Acid Calcium 7.8 L Phosphorus Magnesium 1.60 L Iron TIBC AST ALT Alkaline Phosphatase Lactate Dehydrogenase Total Creatine Kinase C-Reactive Protein Total Protein Albumin Prealbumin CA 19-9 Antigen Folate PTH Intact Urine WBC (Auto) Urine Creatinine Urine Chloride Urine Total Protein Fluid Glucose Fluid Total Protein Vancomycin Trough Miscellaneous Test Crossmatch 06/10/18 06/10/18 06/10/18 05:26 05:31 17:15 WBC 11.1 H RBC 3.07 L Hgb 9.1 L Hct 27.6 L D MCV MCHC RDW 17.4 H Plt Count Lymph % (Auto) [place] % (Auto) Lymph # [place] # Seg Neutrophils % Seg Neuts % (Manual) Lymphocytes % (Manual) Monocytes % (Manual) Seg Neutrophils # Seg Neutrophils # Man Lymphocytes # (Manual) Monocytes # (Manual) PT INR APTT Heparin Anti-Xa Level POC ABG pH POC ABG pCO2 POC ABG pO2 Sodium Potassium Chloride Carbon Dioxide BUN Creatinine Glucose POC Glucose 128 H Lactic Acid Calcium Phosphorus Magnesium Iron TIBC AST ALT Alkaline Phosphatase Lactate Dehydrogenase Total Creatine Kinase C-Reactive Protein 3.60 H Total Protein Albumin Prealbumin CA 19-9 Antigen Folate PTH Intact Urine WBC (Auto) Urine Creatinine Urine Chloride Urine Total Protein Fluid Glucose Fluid Total Protein Vancomycin Trough Miscellaneous Test Crossmatch 06/11/18 06/11/18 06/11/18 01:13 05:41 05:41 WBC 14.6 H RBC 3.40 L Hgb 9.8 L Hct 30.7 L MCV MCHC RDW 18.1 H Plt Count Lymph % (Auto) [place] % (Auto) Lymph # [place] # Seg Neutrophils % Seg Neuts % (Manual) Lymphocytes % (Manual) Monocytes % (Manual) Seg Neutrophils # Seg Neutrophils # Man Lymphocytes # (Manual) Monocytes # (Manual) PT INR APTT Heparin Anti-Xa Level POC ABG pH POC ABG pCO2 POC ABG pO2 Sodium Potassium Chloride 110.8 H Carbon Dioxide 18 L BUN 77 H Creatinine 3.0 H Glucose 116 H POC Glucose 126 H Lactic Acid Calcium 7.9 L Phosphorus Magnesium Iron TIBC AST ALT Alkaline Phosphatase Lactate Dehydrogenase Total Creatine Kinase C-Reactive Protein Total Protein Albumin Prealbumin CA 19-9 Antigen Folate PTH Intact Urine WBC (Auto) Urine Creatinine Urine Chloride Urine Total Protein Fluid Glucose Fluid Total Protein Vancomycin Trough Miscellaneous Test Crossmatch 06/11/18 06/11/18 06/11/18 06:20 07:41 07:41 WBC RBC Hgb Hct MCV MCHC RDW Plt Count Lymph % (Auto) [place] % (Auto) Lymph # [place] # Seg Neutrophils % Seg Neuts % (Manual) Lymphocytes % (Manual) Monocytes % (Manual) Seg Neutrophils # Seg Neutrophils # Man Lymphocytes # (Manual) Monocytes # (Manual) PT INR APTT Heparin Anti-Xa Level POC ABG pH POC ABG pCO2 POC ABG pO2 Sodium Potassium Chloride Carbon Dioxide BUN Creatinine Glucose POC Glucose 136 H Lactic Acid Calcium Phosphorus Magnesium Iron TIBC AST ALT Alkaline Phosphatase Lactate Dehydrogenase Total Creatine Kinase C-Reactive Protein Total Protein Albumin Prealbumin CA 19-9 Antigen Folate PTH Intact Urine WBC (Auto) 10.0 H Urine Creatinine 41.2 H Urine Chloride 49.2 L Urine Total Protein 142 H Fluid Glucose Fluid Total Protein Vancomycin Trough Miscellaneous Test Crossmatch 06/11/18 06/12/18 06/12/18 18:35 00:34 04:12 WBC RBC 3.18 L Hgb 9.5 L Hct 28.7 L MCV MCHC RDW 18.5 H Plt Count Lymph % (Auto) 8.1 L [place] % (Auto) Lymph # 0.9 L [place] # Seg Neutrophils % 84.6 H Seg Neuts % (Manual) Lymphocytes % (Manual) Monocytes % (Manual) Seg Neutrophils # 9.1 H Seg Neutrophils # Man Lymphocytes # (Manual) Monocytes # (Manual) PT INR APTT Heparin Anti-Xa Level POC ABG pH POC ABG pCO2 POC ABG pO2 Sodium Potassium Chloride Carbon Dioxide BUN Creatinine Glucose POC Glucose 125 H 129 H Lactic Acid Calcium Phosphorus Magnesium Iron TIBC AST ALT Alkaline Phosphatase Lactate Dehydrogenase Total Creatine Kinase C-Reactive Protein Total Protein Albumin Prealbumin CA 19-9 Antigen Folate PTH Intact Urine WBC (Auto) Urine Creatinine Urine Chloride Urine Total Protein Fluid Glucose Fluid Total Protein Vancomycin Trough Miscellaneous Test Crossmatch 06/12/18 06/12/18 06/12/18 04:12 06:30 11:43 WBC RBC Hgb Hct MCV MCHC RDW Plt Count Lymph % (Auto) [place] % (Auto) Lymph # [place] # Seg Neutrophils % Seg Neuts % (Manual) Lymphocytes % (Manual) Monocytes % (Manual) Seg Neutrophils # Seg Neutrophils # Man Lymphocytes # (Manual) Monocytes # (Manual) PT INR APTT Heparin Anti-Xa Level POC ABG pH POC ABG pCO2 POC ABG pO2 Sodium Potassium Chloride 108.5 H Carbon Dioxide 21 L BUN 72 H Creatinine 3.0 H Glucose 122 H POC Glucose 129 H 126 H Lactic Acid Calcium 7.8 L Phosphorus Magnesium Iron TIBC AST 45 H ALT Alkaline Phosphatase 200 H Lactate Dehydrogenase Total Creatine Kinase 34 L C-Reactive Protein Total Protein Albumin 1.7 L Prealbumin CA 19-9 Antigen Folate PTH Intact Urine WBC (Auto) Urine Creatinine Urine Chloride Urine Total Protein Fluid Glucose Fluid Total Protein Vancomycin Trough Miscellaneous Test Crossmatch 06/12/18 06/12/18 06/13/18 16:00 23:56 03:44 WBC RBC Hgb Hct MCV MCHC RDW Plt Count Lymph % (Auto) [place] % (Auto) Lymph # [place] # Seg Neutrophils % Seg Neuts % (Manual) Lymphocytes % (Manual) Monocytes % (Manual) Seg Neutrophils # Seg Neutrophils # Man Lymphocytes # (Manual) Monocytes # (Manual) PT INR APTT Heparin Anti-Xa Level POC ABG pH POC ABG pCO2 POC ABG pO2 Sodium Potassium Chloride Carbon Dioxide BUN Creatinine Glucose POC Glucose 123 H 128 H 121 H Lactic Acid Calcium Phosphorus Magnesium Iron TIBC AST ALT Alkaline Phosphatase Lactate Dehydrogenase Total Creatine Kinase C-Reactive Protein Total Protein Albumin Prealbumin CA 19-9 Antigen Folate PTH Intact Urine WBC (Auto) Urine Creatinine Urine Chloride Urine Total Protein Fluid Glucose Fluid Total Protein Vancomycin Trough Miscellaneous Test Crossmatch 06/13/18 06/13/18 06/14/18 05:59 11:29 01:08 WBC RBC Hgb Hct MCV MCHC RDW Plt Count Lymph % (Auto) [place] % (Auto) Lymph # [place] # Seg Neutrophils % Seg Neuts % (Manual) Lymphocytes % (Manual) Monocytes % (Manual) Seg Neutrophils # Seg Neutrophils # Man Lymphocytes # (Manual) Monocytes # (Manual) PT INR APTT Heparin Anti-Xa Level POC ABG pH POC ABG pCO2 POC ABG pO2 Sodium 134 L Potassium Chloride Carbon Dioxide 20 L BUN 69 H Creatinine 2.9 H Glucose 113 H POC Glucose 124 H 128 H Lactic Acid Calcium 7.8 L Phosphorus Magnesium Iron TIBC AST ALT Alkaline Phosphatase Lactate Dehydrogenase Total Creatine Kinase C-Reactive Protein Total Protein Albumin Prealbumin CA 19-9 Antigen Folate PTH Intact Urine WBC (Auto) Urine Creatinine Urine Chloride Urine Total Protein Fluid Glucose Fluid Total Protein Vancomycin Trough Miscellaneous Test Crossmatch 06/14/18 06/14/18 06/14/18 06:42 06:42 09:50 WBC 11.3 H RBC 3.02 L Hgb 8.8 L Hct 27.3 L MCV MCHC RDW 18.6 H Plt Count Lymph % (Auto) [place] % (Auto) Lymph # [place] # Seg Neutrophils % Seg Neuts % (Manual) Lymphocytes % (Manual) Monocytes % (Manual) Seg Neutrophils # Seg Neutrophils # Man Lymphocytes # (Manual) Monocytes # (Manual) PT 16.3 H INR 1.24 H APTT Heparin Anti-Xa Level POC ABG pH POC ABG pCO2 POC ABG pO2 Sodium 132 L Potassium Chloride Carbon Dioxide 19 L BUN 71 H Creatinine 3.1 H Glucose POC Glucose Lactic Acid Calcium 7.8 L Phosphorus Magnesium Iron TIBC AST ALT Alkaline Phosphatase Lactate Dehydrogenase Total Creatine Kinase C-Reactive Protein Total Protein Albumin Prealbumin CA 19-9 Antigen Folate PTH Intact Urine WBC (Auto) Urine Creatinine Urine Chloride Urine Total Protein Fluid Glucose Fluid Total Protein Vancomycin Trough Miscellaneous Test Crossmatch 06/14/18 06/14/18 06/15/18 12:31 17:04 01:18 WBC RBC Hgb Hct MCV MCHC RDW Plt Count Lymph % (Auto) [place] % (Auto) Lymph # [place] # Seg Neutrophils % Seg Neuts % (Manual) Lymphocytes % (Manual) Monocytes % (Manual) Seg Neutrophils # Seg Neutrophils # Man Lymphocytes # (Manual) Monocytes # (Manual) PT INR APTT Heparin Anti-Xa Level POC ABG pH POC ABG pCO2 POC ABG pO2 Sodium Potassium Chloride Carbon Dioxide BUN Creatinine Glucose POC Glucose 125 H 109 H 124 H Lactic Acid Calcium Phosphorus Magnesium Iron TIBC AST ALT Alkaline Phosphatase Lactate Dehydrogenase Total Creatine Kinase C-Reactive Protein Total Protein Albumin Prealbumin CA 19-9 Antigen Folate PTH Intact Urine WBC (Auto) Urine Creatinine Urine Chloride Urine Total Protein Fluid Glucose Fluid Total Protein Vancomycin Trough Miscellaneous Test Crossmatch 06/15/18 06/15/18 06/15/18 05:27 06:34 11:42 WBC RBC Hgb Hct MCV MCHC RDW Plt Count Lymph % (Auto) [place] % (Auto) Lymph # [place] # Seg Neutrophils % Seg Neuts % (Manual) Lymphocytes % (Manual) Monocytes % (Manual) Seg Neutrophils # Seg Neutrophils # Man Lymphocytes # (Manual) Monocytes # (Manual) PT INR APTT Heparin Anti-Xa Level POC ABG pH POC ABG pCO2 POC ABG pO2 Sodium 134 L Potassium Chloride Carbon Dioxide 17 L BUN 77 H Creatinine 3.2 H Glucose 110 H POC Glucose 116 H 131 H Lactic Acid Calcium 8.1 L Phosphorus 6.20 H D Magnesium Iron TIBC AST ALT Alkaline Phosphatase Lactate Dehydrogenase Total Creatine Kinase C-Reactive Protein Total Protein Albumin Prealbumin CA 19-9 Antigen Folate PTH Intact Urine WBC (Auto) Urine Creatinine Urine Chloride Urine Total Protein Fluid Glucose Fluid Total Protein Vancomycin Trough Miscellaneous Test Crossmatch 06/16/18 06/16/18 06/16/18 00:57 05:10 06:07 WBC RBC Hgb Hct MCV MCHC RDW Plt Count Lymph % (Auto) [place] % (Auto) Lymph # [place] # Seg Neutrophils % Seg Neuts % (Manual) Lymphocytes % (Manual) Monocytes % (Manual) Seg Neutrophils # Seg Neutrophils # Man Lymphocytes # (Manual) Monocytes # (Manual) PT INR APTT Heparin Anti-Xa Level POC ABG pH POC ABG pCO2 POC ABG pO2 Sodium 132 L Potassium Chloride Carbon Dioxide 19 L BUN 83 H Creatinine 3.2 H Glucose 113 H POC Glucose 137 H 109 H Lactic Acid Calcium 7.8 L Phosphorus 6.10 H Magnesium Iron TIBC AST ALT Alkaline Phosphatase Lactate Dehydrogenase Total Creatine Kinase C-Reactive Protein Total Protein Albumin Prealbumin CA 19-9 Antigen Folate PTH Intact Urine WBC (Auto) Urine Creatinine Urine Chloride Urine Total Protein Fluid Glucose Fluid Total Protein Vancomycin Trough Miscellaneous Test Crossmatch 06/16/18 06/16/18 06/17/18 11:51 15:46 00:02 WBC RBC Hgb Hct MCV MCHC RDW Plt Count Lymph % (Auto) [place] % (Auto) Lymph # [place] # Seg Neutrophils % Seg Neuts % (Manual) Lymphocytes % (Manual) Monocytes % (Manual) Seg Neutrophils # Seg Neutrophils # Man Lymphocytes # (Manual) Monocytes # (Manual) PT INR APTT Heparin Anti-Xa Level POC ABG pH POC ABG pCO2 POC ABG pO2 Sodium Potassium Chloride Carbon Dioxide BUN Creatinine Glucose POC Glucose 126 H 127 H 107 H Lactic Acid Calcium Phosphorus Magnesium Iron TIBC AST ALT Alkaline Phosphatase Lactate Dehydrogenase Total Creatine Kinase C-Reactive Protein Total Protein Albumin Prealbumin CA 19-9 Antigen Folate PTH Intact Urine WBC (Auto) Urine Creatinine Urine Chloride Urine Total Protein Fluid Glucose Fluid Total Protein Vancomycin Trough Miscellaneous Test Crossmatch 06/17/18 06/17/18 06/17/18 05:52 11:46 16:58 WBC RBC Hgb Hct MCV MCHC RDW Plt Count Lymph % (Auto) [place] % (Auto) Lymph # [place] # Seg Neutrophils % Seg Neuts % (Manual) Lymphocytes % (Manual) Monocytes % (Manual) Seg Neutrophils # Seg Neutrophils # Man Lymphocytes # (Manual) Monocytes # (Manual) PT INR APTT Heparin Anti-Xa Level POC ABG pH POC ABG pCO2 POC ABG pO2 Sodium 133 L Potassium Chloride Carbon Dioxide 17 L BUN 87 H Creatinine 3.2 H Glucose POC Glucose 129 H 140 H Lactic Acid Calcium 8.1 L Phosphorus 6.50 H Magnesium Iron TIBC AST ALT Alkaline Phosphatase Lactate Dehydrogenase Total Creatine Kinase C-Reactive Protein Total Protein Albumin Prealbumin 0.130 L CA 19-9 Antigen Folate PTH Intact Urine WBC (Auto) Urine Creatinine Urine Chloride Urine Total Protein Fluid Glucose Fluid Total Protein Vancomycin Trough Miscellaneous Test Crossmatch 06/18/18 06/18/18 06/18/18 04:04 04:04 14:15 WBC RBC 3.00 L Hgb 8.9 L Hct 26.5 L MCV MCHC RDW 17.8 H Plt Count 494 H Lymph % (Auto) 7.9 L [place] % (Auto) 9.3 H Lymph # 0.8 L [place] # 1.0 H Seg Neutrophils % 81.2 H Seg Neuts % (Manual) Lymphocytes % (Manual) Monocytes % (Manual) Seg Neutrophils # 8.6 H Seg Neutrophils # Man Lymphocytes # (Manual) Monocytes # (Manual) PT INR APTT Heparin Anti-Xa Level POC ABG pH POC ABG pCO2 POC ABG pO2 Sodium 128 L Potassium Chloride Carbon Dioxide 18 L BUN 88 H Creatinine 3.1 H Glucose 129 H POC Glucose 143 H Lactic Acid Calcium 7.8 L Phosphorus 6.20 H Magnesium Iron TIBC AST ALT Alkaline Phosphatase Lactate Dehydrogenase Total Creatine Kinase C-Reactive Protein Total Protein Albumin Prealbumin CA 19-9 Antigen Folate PTH Intact Urine WBC (Auto) Urine Creatinine Urine Chloride Urine Total Protein Fluid Glucose Fluid Total Protein Vancomycin Trough Miscellaneous Test Crossmatch 06/18/18 06/19/18 06/19/18 17:54 01:45 06:20 WBC RBC Hgb Hct MCV MCHC RDW Plt Count Lymph % (Auto) [place] % (Auto) Lymph # [place] # Seg Neutrophils % Seg Neuts % (Manual) Lymphocytes % (Manual) Monocytes % (Manual) Seg Neutrophils # Seg Neutrophils # Man Lymphocytes # (Manual) Monocytes # (Manual) PT INR APTT Heparin Anti-Xa Level POC ABG pH POC ABG pCO2 POC ABG pO2 Sodium Potassium Chloride 93.9 L Carbon Dioxide BUN 78 H Creatinine 2.8 H Glucose POC Glucose 138 H 141 H Lactic Acid Calcium 7.1 L Phosphorus 6.40 H Magnesium Iron TIBC AST ALT Alkaline Phosphatase Lactate Dehydrogenase Total Creatine Kinase C-Reactive Protein Total Protein Albumin Prealbumin CA 19-9 Antigen Folate PTH Intact Urine WBC (Auto) Urine Creatinine Urine Chloride Urine Total Protein Fluid Glucose Fluid Total Protein Vancomycin Trough Miscellaneous Test Crossmatch 06/19/18 06/19/18 06/19/18 06:49 07:59 16:32 WBC RBC Hgb Hct MCV MCHC RDW Plt Count Lymph % (Auto) [place] % (Auto) Lymph # [place] # Seg Neutrophils % Seg Neuts % (Manual) Lymphocytes % (Manual) Monocytes % (Manual) Seg Neutrophils # Seg Neutrophils # Man Lymphocytes # (Manual) Monocytes # (Manual) PT INR APTT Heparin Anti-Xa Level POC ABG pH POC ABG pCO2 POC ABG pO2 Sodium Potassium Chloride Carbon Dioxide BUN 80 H Creatinine 2.9 H Glucose 123 H POC Glucose 130 H 134 H Lactic Acid Calcium 7.7 L Phosphorus Magnesium Iron TIBC AST ALT Alkaline Phosphatase Lactate Dehydrogenase Total Creatine Kinase C-Reactive Protein Total Protein Albumin Prealbumin CA 19-9 Antigen Folate PTH Intact Urine WBC (Auto) Urine Creatinine Urine Chloride Urine Total Protein Fluid Glucose Fluid Total Protein Vancomycin Trough Miscellaneous Test Crossmatch 06/20/18 06/20/18 06/20/18 00:11 05:55 05:55 WBC RBC 2.73 L Hgb 8.0 L Hct 24.2 L MCV MCHC RDW 17.4 H Plt Count 512 H Lymph % (Auto) 12.3 L [place] % (Auto) 11.3 H Lymph # 1.1 L [place] # 1.0 H Seg Neutrophils % 74.8 H Seg Neuts % (Manual) Lymphocytes % (Manual) Monocytes % (Manual) Seg Neutrophils # Seg Neutrophils # Man Lymphocytes # (Manual) Monocytes # (Manual) PT INR APTT Heparin Anti-Xa Level POC ABG pH POC ABG pCO2 POC ABG pO2 Sodium Potassium Chloride Carbon Dioxide 32 H BUN 70 H Creatinine 2.5 H Glucose 105 H POC Glucose 131 H Lactic Acid Calcium 8.0 L Phosphorus Magnesium Iron TIBC AST ALT Alkaline Phosphatase Lactate Dehydrogenase Total Creatine Kinase C-Reactive Protein Total Protein Albumin Prealbumin CA 19-9 Antigen Folate PTH Intact Urine WBC (Auto) Urine Creatinine Urine Chloride Urine Total Protein Fluid Glucose Fluid Total Protein Vancomycin Trough Miscellaneous Test Crossmatch 06/20/18 06/20/1818 05:55 12:10 16:01 WBC RBC Hgb Hct MCV MCHC RDW Plt Count Lymph % (Auto) [place] % (Auto) Lymph # [place] # Seg Neutrophils % Seg Neuts % (Manual) Lymphocytes % (Manual) Monocytes % (Manual) Seg Neutrophils # Seg Neutrophils # Man Lymphocytes # (Manual) Monocytes # (Manual) PT INR APTT Heparin Anti-Xa Level POC ABG pH POC ABG pCO2 POC ABG pO2 Sodium Potassium Chloride Carbon Dioxide BUN Creatinine Glucose POC Glucose 112 H 127 H 145 H Lactic Acid Calcium Phosphorus Magnesium Iron TIBC AST ALT Alkaline Phosphatase Lactate Dehydrogenase Total Creatine Kinase C-Reactive Protein Total Protein Albumin Prealbumin CA 19-9 Antigen Folate PTH Intact Urine WBC (Auto) Urine Creatinine Urine Chloride Urine Total Protein Fluid Glucose Fluid Total Protein Vancomycin Trough Miscellaneous Test Crossmatch 06/20/18 06/21/18 06/21/18 23:54 05:50 05:50 WBC RBC 2.57 L Hgb 7.7 L Hct 26.6 L MCV 104 H MCHC 29 L RDW 19.1 H Plt Count 521 H Lymph % (Auto) 10.0 L [place] % (Auto) 7.4 H Lymph # 1.0 L [place] # Seg Neutrophils % 81.3 H Seg Neuts % (Manual) Lymphocytes % (Manual) Monocytes % (Manual) Seg Neutrophils # 7.9 H Seg Neutrophils # Man Lymphocytes # (Manual) Monocytes # (Manual) PT INR APTT Heparin Anti-Xa Level POC ABG pH POC ABG pCO2 POC ABG pO2 Sodium Potassium 5.8 H D Chloride 90.3 L Carbon Dioxide 37 H BUN 57 H Creatinine 1.9 H Glucose POC Glucose 154 H Lactic Acid Calcium 7.3 L Phosphorus Magnesium Iron TIBC AST 50 H ALT Alkaline Phosphatase 190 H Lactate Dehydrogenase Total Creatine Kinase C-Reactive Protein Total Protein Albumin 1.8 L Prealbumin CA 19-9 Antigen Folate PTH Intact Urine WBC (Auto) Urine Creatinine Urine Chloride Urine Total Protein Fluid Glucose Fluid Total Protein Vancomycin Trough Miscellaneous Test Crossmatch 06/21/18 06/21/18 06/21/18 06:57 13:37 17:00 WBC RBC Hgb Hct MCV MCHC RDW Plt Count Lymph % (Auto) [place] % (Auto) Lymph # [place] # Seg Neutrophils % Seg Neuts % (Manual) Lymphocytes % (Manual) Monocytes % (Manual) Seg Neutrophils # Seg Neutrophils # Man Lymphocytes # (Manual) Monocytes # (Manual) PT INR APTT Heparin Anti-Xa Level POC ABG pH POC ABG pCO2 POC ABG pO2 Sodium Potassium Chloride Carbon Dioxide BUN Creatinine Glucose 111 H POC Glucose 141 H 148 H Lactic Acid Calcium Phosphorus Magnesium Iron TIBC AST ALT Alkaline Phosphatase Lactate Dehydrogenase Total Creatine Kinase C-Reactive Protein Total Protein Albumin Prealbumin CA 19-9 Antigen Folate PTH Intact Urine WBC (Auto) Urine Creatinine Urine Chloride Urine Total Protein Fluid Glucose Fluid Total Protein Vancomycin Trough Miscellaneous Test Crossmatch 06/21/18 06/21/18 06/22/18 17:27 22:01 06:02 WBC RBC Hgb Hct MCV MCHC RDW Plt Count Lymph % (Auto) [place] % (Auto) Lymph # [place] # Seg Neutrophils % Seg Neuts % (Manual) Lymphocytes % (Manual) Monocytes % (Manual) Seg Neutrophils # Seg Neutrophils # Man Lymphocytes # (Manual) Monocytes # (Manual) PT INR APTT Heparin Anti-Xa Level POC ABG pH POC ABG pCO2 POC ABG pO2 Sodium Potassium 3.2 L Chloride Carbon Dioxide 39 H BUN 53 H Creatinine 1.9 H Glucose 1348 H* POC Glucose 130 H 122 H Lactic Acid Calcium 7.5 L Phosphorus Magnesium Iron TIBC AST ALT Alkaline Phosphatase Lactate Dehydrogenase Total Creatine Kinase C-Reactive Protein Total Protein Albumin Prealbumin CA 19-9 Antigen Folate PTH Intact Urine WBC (Auto) Urine Creatinine Urine Chloride Urine Total Protein Fluid Glucose Fluid Total Protein Vancomycin Trough Miscellaneous Test Crossmatch 06/22/18 06/22/18 06/22/18 06:16 07:26 07:48 WBC RBC Hgb Hct MCV MCHC RDW Plt Count Lymph % (Auto) [place] % (Auto) Lymph # [place] # Seg Neutrophils % Seg Neuts % (Manual) Lymphocytes % (Manual) Monocytes % (Manual) Seg Neutrophils # Seg Neutrophils # Man Lymphocytes # (Manual) Monocytes # (Manual) PT INR APTT Heparin Anti-Xa Level POC ABG pH POC ABG pCO2 POC ABG pO2 Sodium Potassium Chloride Carbon Dioxide 37 H BUN 57 H Creatinine 1.9 H Glucose 147 H POC Glucose 148 H 153 H Lactic Acid Calcium 8.3 L Phosphorus Magnesium Iron TIBC AST ALT Alkaline Phosphatase Lactate Dehydrogenase Total Creatine Kinase C-Reactive Protein Total Protein Albumin Prealbumin CA 19-9 Antigen Folate PTH Intact Urine WBC (Auto) Urine Creatinine Urine Chloride Urine Total Protein Fluid Glucose Fluid Total Protein Vancomycin Trough Miscellaneous Test Crossmatch 06/22/18 06/22/18 06/22/18 11:26 16:26 23:57 WBC RBC Hgb Hct MCV MCHC RDW Plt Count Lymph % (Auto) [place] % (Auto) Lymph # [place] # Seg Neutrophils % Seg Neuts % (Manual) Lymphocytes % (Manual) Monocytes % (Manual) Seg Neutrophils # Seg Neutrophils # Man Lymphocytes # (Manual) Monocytes # (Manual) PT INR APTT Heparin Anti-Xa Level POC ABG pH POC ABG pCO2 POC ABG pO2 Sodium Potassium Chloride Carbon Dioxide BUN Creatinine Glucose POC Glucose 121 H 122 H 180 H Lactic Acid Calcium Phosphorus Magnesium Iron TIBC AST ALT Alkaline Phosphatase Lactate Dehydrogenase Total Creatine Kinase C-Reactive Protein Total Protein Albumin Prealbumin CA 19-9 Antigen Folate PTH Intact Urine WBC (Auto) Urine Creatinine Urine Chloride Urine Total Protein Fluid Glucose Fluid Total Protein Vancomycin Trough Miscellaneous Test Crossmatch 06/22/18 06/23/18 06/23/18 23:57 00:30 01:40 WBC RBC Hgb Hct MCV MCHC RDW Plt Count Lymph % (Auto) [place] % (Auto) Lymph # [place] # Seg Neutrophils % Seg Neuts % (Manual) Lymphocytes % (Manual) Monocytes % (Manual) Seg Neutrophils # Seg Neutrophils # Man Lymphocytes # (Manual) Monocytes # (Manual) PT INR APTT Heparin Anti-Xa Level POC ABG pH 7.195 L 7.235 L POC ABG pCO2 105.2 H 95.7 H POC ABG pO2 Sodium Potassium Chloride Carbon Dioxide BUN Creatinine Glucose POC Glucose Lactic Acid Calcium Phosphorus Magnesium Iron TIBC AST ALT Alkaline Phosphatase Lactate Dehydrogenase Total Creatine Kinase C-Reactive Protein Total Protein Albumin Prealbumin CA 19-9 Antigen Folate PTH Intact Urine WBC (Auto) Urine Creatinine 99.7 H Urine Chloride 10.0 L Urine Total Protein 272 H Fluid Glucose Fluid Total Protein Vancomycin Trough Miscellaneous Test Crossmatch 06/23/18 06/23/18 06/23/18 05:58 07:20 08:31 WBC 16.0 H RBC 2.35 L Hgb 6.7 L Hct 22.3 L MCV 95 H MCHC 30 L RDW 18.5 H Plt Count 512 H Lymph % (Auto) [place] % (Auto) Lymph # [place] # Seg Neutrophils % Seg Neuts % (Manual) Lymphocytes % (Manual) Monocytes % (Manual) Seg Neutrophils # Seg Neutrophils # Man Lymphocytes # (Manual) Monocytes # (Manual) PT INR APTT Heparin Anti-Xa Level POC ABG pH POC ABG pCO2 POC ABG pO2 Sodium Potassium Chloride Carbon Dioxide BUN Creatinine Glucose POC Glucose 116 H 123 H Lactic Acid Calcium Phosphorus Magnesium Iron TIBC AST ALT Alkaline Phosphatase Lactate Dehydrogenase Total Creatine Kinase C-Reactive Protein Total Protein Albumin Prealbumin CA 19-9 Antigen Folate PTH Intact Urine WBC (Auto) Urine Creatinine Urine Chloride Urine Total Protein Fluid Glucose Fluid Total Protein Vancomycin Trough Miscellaneous Test Crossmatch 06/23/18 06/23/18 06/23/18 08:31 08:34 08:34 WBC RBC Hgb Hct MCV MCHC RDW Plt Count 485 H Lymph % (Auto) [place] % (Auto) Lymph # [place] # Seg Neutrophils % Seg Neuts % (Manual) Lymphocytes % (Manual) Monocytes % (Manual) Seg Neutrophils # Seg Neutrophils # Man Lymphocytes # (Manual) Monocytes # (Manual) PT 15.2 H INR 1.15 H APTT 41.9 H Heparin Anti-Xa Level POC ABG pH POC ABG pCO2 POC ABG pO2 Sodium 148 H Potassium Chloride Carbon Dioxide BUN 59 H Creatinine 2.2 H Glucose 106 H POC Glucose Lactic Acid Calcium 8.2 L Phosphorus 6.60 H Magnesium Iron TIBC AST 46 H ALT Alkaline Phosphatase 188 H Lactate Dehydrogenase Total Creatine Kinase C-Reactive Protein Total Protein Albumin 1.6 L Prealbumin CA 19-9 Antigen Folate PTH Intact Urine WBC (Auto) Urine Creatinine Urine Chloride Urine Total Protein Fluid Glucose Fluid Total Protein Vancomycin Trough Miscellaneous Test Crossmatch 06/23/18 06/23/18 06/23/18 09:29 09:40 09:43 WBC RBC Hgb Hct MCV MCHC RDW Plt Count Lymph % (Auto) [place] % (Auto) Lymph # [place] # Seg Neutrophils % Seg Neuts % (Manual) Lymphocytes % (Manual) Monocytes % (Manual) Seg Neutrophils # Seg Neutrophils # Man Lymphocytes # (Manual) Monocytes # (Manual) PT INR APTT Heparin Anti-Xa Level POC ABG pH 7.521 H POC ABG pCO2 53.6 H 48.4 H POC ABG pO2 37 L 181 H Sodium Potassium Chloride Carbon Dioxide BUN Creatinine Glucose POC Glucose Lactic Acid Calcium Phosphorus Magnesium Iron TIBC AST ALT Alkaline Phosphatase Lactate Dehydrogenase Total Creatine Kinase C-Reactive Protein Total Protein Albumin Prealbumin CA 19-9 Antigen Folate PTH Intact Urine WBC (Auto) Urine Creatinine Urine Chloride Urine Total Protein Fluid Glucose Fluid Total Protein Vancomycin Trough Miscellaneous Test Crossmatch See Detail 06/23/18 06/23/18 06/23/18 17:03 17:03 18:33 WBC 22.2 H RBC 2.85 L Hgb 8.4 L Hct 25.6 L MCV MCHC RDW 17.6 H Plt Count 515 H Lymph % (Auto) [place] % (Auto) Lymph # [place] # Seg Neutrophils % Seg Neuts % (Manual) Lymphocytes % (Manual) Monocytes % (Manual) Seg Neutrophils # Seg Neutrophils # Man Lymphocytes # (Manual) Monocytes # (Manual) PT INR APTT Heparin Anti-Xa Level 0.13 L POC ABG pH POC ABG pCO2 POC ABG pO2 Sodium Potassium Chloride Carbon Dioxide BUN Creatinine Glucose POC Glucose < 40 L Lactic Acid Calcium Phosphorus Magnesium Iron TIBC AST ALT Alkaline Phosphatase Lactate Dehydrogenase Total Creatine Kinase C-Reactive Protein Total Protein Albumin Prealbumin CA 19-9 Antigen Folate PTH Intact Urine WBC (Auto) Urine Creatinine Urine Chloride Urine Total Protein Fluid Glucose Fluid Total Protein Vancomycin Trough Miscellaneous Test Crossmatch 06/23/18 06/23/18 06/24/18 23:53 Unknown 00:30 WBC RBC Hgb Hct MCV MCHC RDW Plt Count Lymph % (Auto) [place] % (Auto) Lymph # [place] # Seg Neutrophils % Seg Neuts % (Manual) Lymphocytes % (Manual) Monocytes % (Manual) Seg Neutrophils # Seg Neutrophils # Man Lymphocytes # (Manual) Monocytes # (Manual) PT INR APTT Heparin Anti-Xa Level POC ABG pH POC ABG pCO2 POC ABG pO2 Sodium 148 H Potassium Chloride Carbon Dioxide 36 H BUN 57 H Creatinine 1.9 H Glucose POC Glucose 140 H Lactic Acid Calcium 8.3 L Phosphorus Magnesium Iron TIBC AST ALT Alkaline Phosphatase Lactate Dehydrogenase Total Creatine Kinase C-Reactive Protein Total Protein Albumin Prealbumin CA 19-9 Antigen Folate PTH Intact Urine WBC (Auto) 8.0 H Urine Creatinine Urine Chloride Urine Total Protein Fluid Glucose Fluid Total Protein Vancomycin Trough Miscellaneous Test Crossmatch 06/24/18 06/24/18 06/24/18 00:40 04:30 04:30 WBC 26.9 H RBC 2.79 L Hgb 8.1 L Hct 25.0 L MCV MCHC RDW 17.5 H Plt Count 487 H Lymph % (Auto) [place] % (Auto) Lymph # [place] # Seg Neutrophils % Seg Neuts % (Manual) Lymphocytes % (Manual) 6.0 L Monocytes % (Manual) 8.0 H Seg Neutrophils # Seg Neutrophils # Man 16.9 H Lymphocytes # (Manual) Monocytes # (Manual) 2.2 H PT INR APTT Heparin Anti-Xa Level 0.13 L POC ABG pH POC ABG pCO2 POC ABG pO2 Sodium 151 H Potassium Chloride Carbon Dioxide 36 H D BUN 74 H Creatinine 2.9 H Glucose 126 H POC Glucose Lactic Acid Calcium 8.2 L Phosphorus Magnesium Iron TIBC AST ALT Alkaline Phosphatase Lactate Dehydrogenase Total Creatine Kinase C-Reactive Protein Total Protein Albumin Prealbumin CA 19-9 Antigen Folate PTH Intact Urine WBC (Auto) Urine Creatinine Urine Chloride Urine Total Protein Fluid Glucose Fluid Total Protein Vancomycin Trough Miscellaneous Test Crossmatch 06/24/18 06/24/18 06/24/18 04:33 06:41 08:00 WBC RBC Hgb Hct MCV MCHC RDW Plt Count Lymph % (Auto) [place] % (Auto) Lymph # [place] # Seg Neutrophils % Seg Neuts % (Manual) Lymphocytes % (Manual) Monocytes % (Manual) Seg Neutrophils # Seg Neutrophils # Man Lymphocytes # (Manual) Monocytes # (Manual) PT INR APTT Heparin Anti-Xa Level 0.21 L POC ABG pH 7.517 H POC ABG pCO2 50.9 H POC ABG pO2 170 H Sodium Potassium Chloride Carbon Dioxide BUN Creatinine Glucose POC Glucose 140 H Lactic Acid Calcium Phosphorus Magnesium Iron TIBC AST ALT Alkaline Phosphatase Lactate Dehydrogenase Total Creatine Kinase C-Reactive Protein Total Protein Albumin Prealbumin CA 19-9 Antigen Folate PTH Intact Urine WBC (Auto) Urine Creatinine Urine Chloride Urine Total Protein Fluid Glucose Fluid Total Protein Vancomycin Trough Miscellaneous Test Crossmatch 06/24/18 06/24/18 06/24/18 12:27 14:20 18:46 WBC RBC Hgb Hct MCV MCHC RDW Plt Count Lymph % (Auto) [place] % (Auto) Lymph # [place] # Seg Neutrophils % Seg Neuts % (Manual) Lymphocytes % (Manual) Monocytes % (Manual) Seg Neutrophils # Seg Neutrophils # Man Lymphocytes # (Manual) Monocytes # (Manual) PT INR APTT Heparin Anti-Xa Level 0.28 L POC ABG pH POC ABG pCO2 POC ABG pO2 Sodium Potassium Chloride Carbon Dioxide BUN Creatinine Glucose POC Glucose 216 H 182 H Lactic Acid Calcium Phosphorus Magnesium Iron TIBC AST ALT Alkaline Phosphatase Lactate Dehydrogenase Total Creatine Kinase C-Reactive Protein Total Protein Albumin Prealbumin CA 19-9 Antigen Folate PTH Intact Urine WBC (Auto) Urine Creatinine Urine Chloride Urine Total Protein Fluid Glucose Fluid Total Protein Vancomycin Trough Miscellaneous Test Crossmatch 06/24/18 06/25/18 06/25/18 23:43 04:29 04:37 WBC RBC Hgb 8.1 L Hct 25.6 L MCV MCHC RDW Plt Count Lymph % (Auto) [place] % (Auto) Lymph # [place] # Seg Neutrophils % Seg Neuts % (Manual) Lymphocytes % (Manual) Monocytes % (Manual) Seg Neutrophils # Seg Neutrophils # Man Lymphocytes # (Manual) Monocytes # (Manual) PT INR APTT Heparin Anti-Xa Level POC ABG pH 7.534 H POC ABG pCO2 POC ABG pO2 161 H Sodium Potassium Chloride Carbon Dioxide BUN Creatinine Glucose POC Glucose 217 H Lactic Acid Calcium Phosphorus Magnesium Iron TIBC AST ALT Alkaline Phosphatase Lactate Dehydrogenase Total Creatine Kinase C-Reactive Protein Total Protein Albumin Prealbumin CA 19-9 Antigen Folate PTH Intact Urine WBC (Auto) Urine Creatinine Urine Chloride Urine Total Protein Fluid Glucose Fluid Total Protein Vancomycin Trough Miscellaneous Test Crossmatch 06/25/18 06/25/18 06/25/18 04:37 05:48 12:11 WBC RBC Hgb Hct MCV MCHC RDW Plt Count Lymph % (Auto) [place] % (Auto) Lymph # [place] # Seg Neutrophils % Seg Neuts % (Manual) Lymphocytes % (Manual) Monocytes % (Manual) Seg Neutrophils # Seg Neutrophils # Man Lymphocytes # (Manual) Monocytes # (Manual) PT INR APTT Heparin Anti-Xa Level POC ABG pH POC ABG pCO2 POC ABG pO2 Sodium Potassium 2.6 L* D Chloride Carbon Dioxide 32 H BUN 75 H Creatinine 3.1 H Glucose 244 H POC Glucose 225 H 252 H Lactic Acid Calcium Phosphorus Magnesium Iron TIBC AST ALT Alkaline Phosphatase Lactate Dehydrogenase Total Creatine Kinase C-Reactive Protein Total Protein Albumin Prealbumin CA 19-9 Antigen Folate PTH Intact Urine WBC (Auto) Urine Creatinine Urine Chloride Urine Total Protein Fluid Glucose Fluid Total Protein Vancomycin Trough Miscellaneous Test Crossmatch 06/25/18 06/25/18 06/25/18 15:58 18:12 20:30 WBC RBC Hgb 8.5 L Hct 27.6 L MCV MCHC RDW Plt Count Lymph % (Auto) [place] % (Auto) Lymph # [place] # Seg Neutrophils % Seg Neuts % (Manual) Lymphocytes % (Manual) Monocytes % (Manual) Seg Neutrophils # Seg Neutrophils # Man Lymphocytes # (Manual) Monocytes # (Manual) PT INR APTT Heparin Anti-Xa Level POC ABG pH POC ABG pCO2 POC ABG pO2 Sodium 148 H Potassium 2.4 L* Chloride Carbon Dioxide 31 H BUN 79 H Creatinine 3.0 H Glucose 152 H POC Glucose 199 H Lactic Acid Calcium 8.3 L Phosphorus Magnesium Iron TIBC AST ALT Alkaline Phosphatase Lactate Dehydrogenase Total Creatine Kinase C-Reactive Protein Total Protein Albumin Prealbumin CA 19-9 Antigen Folate PTH Intact Urine WBC (Auto) Urine Creatinine Urine Chloride Urine Total Protein Fluid Glucose Fluid Total Protein Vancomycin Trough Miscellaneous Test Crossmatch 06/26/18 06/26/18 06/26/18 04:00 04:00 04:00 WBC 26.2 H RBC 3.16 L Hgb 9.1 L Hct 28.8 L MCV MCHC RDW 18.2 H Plt Count Lymph % (Auto) [place] % (Auto) Lymph # [place] # Seg Neutrophils % Seg Neuts % (Manual) Lymphocytes % (Manual) 2.0 L Monocytes % (Manual) Seg Neutrophils # Seg Neutrophils # Man 11.5 H Lymphocytes # (Manual) 0.5 L Monocytes # (Manual) PT INR APTT Heparin Anti-Xa Level POC ABG pH POC ABG pCO2 POC ABG pO2 Sodium 146 H Potassium 3.2 L D 3.3 L Chloride 109.0 H 108.2 H Carbon Dioxide BUN 74 H 75 H Creatinine 2.9 H 2.9 H Glucose 62 L 60 L POC Glucose Lactic Acid Calcium 7.7 L 7.9 L Phosphorus Magnesium 1.60 L Iron TIBC AST ALT Alkaline Phosphatase 173 H Lactate Dehydrogenase Total Creatine Kinase C-Reactive Protein Total Protein 6.1 L Albumin 1.4 L Prealbumin CA 19-9 Antigen Folate PTH Intact Urine WBC (Auto) Urine Creatinine Urine Chloride Urine Total Protein Fluid Glucose Fluid Total Protein Vancomycin Trough Miscellaneous Test Crossmatch 06/26/18 06/26/18 06/26/18 05:57 05:59 06:22 WBC RBC Hgb Hct MCV MCHC RDW Plt Count Lymph % (Auto) [place] % (Auto) Lymph # [place] # Seg Neutrophils % Seg Neuts % (Manual) Lymphocytes % (Manual) Monocytes % (Manual) Seg Neutrophils # Seg Neutrophils # Man Lymphocytes # (Manual) Monocytes # (Manual) PT INR APTT Heparin Anti-Xa Level POC ABG pH 7.269 L POC ABG pCO2 68.0 H POC ABG pO2 73 L Sodium Potassium Chloride Carbon Dioxide BUN Creatinine Glucose POC Glucose 59 L 130 H Lactic Acid Calcium Phosphorus Magnesium Iron TIBC AST ALT Alkaline Phosphatase Lactate Dehydrogenase Total Creatine Kinase C-Reactive Protein Total Protein Albumin Prealbumin CA 19-9 Antigen Folate PTH Intact Urine WBC (Auto) Urine Creatinine Urine Chloride Urine Total Protein Fluid Glucose Fluid Total Protein Vancomycin Trough Miscellaneous Test Crossmatch 06/27/18 06/27/18 06/27/18 03:34 05:20 05:20 WBC RBC Hgb 6.7 L Hct 21.2 L D MCV MCHC RDW Plt Count Lymph % (Auto) [place] % (Auto) Lymph # [place] # Seg Neutrophils % Seg Neuts % (Manual) Lymphocytes % (Manual) Monocytes % (Manual) Seg Neutrophils # Seg Neutrophils # Man Lymphocytes # (Manual) Monocytes # (Manual) PT INR APTT Heparin Anti-Xa Level POC ABG pH 7.251 L POC ABG pCO2 63.7 H POC ABG pO2 157 H Sodium Potassium 5.9 H D Chloride Carbon Dioxide BUN 87 H Creatinine 4.4 H D Glucose 128 H POC Glucose Lactic Acid Calcium 8.1 L Phosphorus Magnesium Iron TIBC AST ALT Alkaline Phosphatase Lactate Dehydrogenase Total Creatine Kinase C-Reactive Protein Total Protein Albumin Prealbumin CA 19-9 Antigen Folate PTH Intact Urine WBC (Auto) Urine Creatinine Urine Chloride Urine Total Protein Fluid Glucose Fluid Total Protein Vancomycin Trough Miscellaneous Test Crossmatch 06/27/18 06/27/18 06/27/18 09:05 10:56 10:56 WBC RBC Hgb 6.9 L Hct 21.6 L MCV MCHC RDW Plt Count Lymph % (Auto) [place] % (Auto) Lymph # [place] # Seg Neutrophils % Seg Neuts % (Manual) Lymphocytes % (Manual) Monocytes % (Manual) Seg Neutrophils # Seg Neutrophils # Man Lymphocytes # (Manual) Monocytes # (Manual) PT INR APTT Heparin Anti-Xa Level POC ABG pH POC ABG pCO2 POC ABG pO2 Sodium Potassium 5.7 H Chloride Carbon Dioxide BUN Creatinine Glucose POC Glucose Lactic Acid Calcium Phosphorus Magnesium Iron TIBC AST ALT Alkaline Phosphatase Lactate Dehydrogenase Total Creatine Kinase C-Reactive Protein Total Protein Albumin Prealbumin CA 19-9 Antigen Folate PTH Intact Urine WBC (Auto) Urine Creatinine Urine Chloride Urine Total Protein Fluid Glucose Fluid Total Protein Vancomycin Trough Miscellaneous Test Crossmatch See Detail 06/27/18 06/27/18 06/27/18 10:56 12:07 17:33 WBC 25.2 H RBC 2.37 L Hgb 6.7 L Hct 21.6 L MCV MCHC 31 L RDW 18.0 H Plt Count Lymph % (Auto) [place] % (Auto) Lymph # [place] # Seg Neutrophils % Seg Neuts % (Manual) 97.0 H Lymphocytes % (Manual) 1.0 L Monocytes % (Manual) Seg Neutrophils # Seg Neutrophils # Man 24.4 H Lymphocytes # (Manual) 0.3 L Monocytes # (Manual) PT INR APTT Heparin Anti-Xa Level POC ABG pH POC ABG pCO2 POC ABG pO2 Sodium Potassium Chloride Carbon Dioxide BUN Creatinine Glucose POC Glucose 156 H 123 H Lactic Acid Calcium Phosphorus Magnesium Iron TIBC AST ALT Alkaline Phosphatase Lactate Dehydrogenase Total Creatine Kinase C-Reactive Protein Total Protein Albumin Prealbumin CA 19-9 Antigen Folate PTH Intact Urine WBC (Auto) Urine Creatinine Urine Chloride Urine Total Protein Fluid Glucose Fluid Total Protein Vancomycin Trough Miscellaneous Test Crossmatch 06/28/18 06/28/18 06/28/18 00:40 04:54 05:52 WBC RBC Hgb Hct MCV MCHC RDW Plt Count Lymph % (Auto) [place] % (Auto) Lymph # [place] # Seg Neutrophils % Seg Neuts % (Manual) Lymphocytes % (Manual) Monocytes % (Manual) Seg Neutrophils # Seg Neutrophils # Man Lymphocytes # (Manual) Monocytes # (Manual) PT INR APTT Heparin Anti-Xa Level POC ABG pH POC ABG pCO2 POC ABG pO2 Sodium Potassium Chloride Carbon Dioxide BUN 57 H Creatinine 3.3 H Glucose 107 H POC Glucose 127 H 117 H Lactic Acid Calcium Phosphorus Magnesium Iron TIBC AST ALT Alkaline Phosphatase Lactate Dehydrogenase Total Creatine Kinase C-Reactive Protein Total Protein Albumin Prealbumin CA 19-9 Antigen Folate PTH Intact Urine WBC (Auto) Urine Creatinine Urine Chloride Urine Total Protein Fluid Glucose Fluid Total Protein Vancomycin Trough Miscellaneous Test Crossmatch Allied health notes reviewed: nursing
--- NOTE | 2018-06-28 09:15 | Progress Note ---
Assessment and Plan 1. Acute kidney injury: Initial MARYLOU in the setting of bilateral hydronephrosis secondary to pelvic mass , now s/p bilateral nephrostomy. Recurrent Acute kidney injury likely ATN. Patient was restarted on hemodialysis yesterday due to hyeprkalemia. Monitor renal function and [employer] needs. 2. Electrolytes: Hyperkalemia, dialyzed yesterday. Monitor K level. 3. Hypotension: Off pressors. 4. Bowel obstruction: S/p colostomy. 5. Bilateral hydronephrosis: Secondary to pelvic mass. S/p bilateral nephrostomy. 6. Respiratory failure: On vent. 7. S/p Cardiac arrest. 8. Anemia. 9. 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 Subjective Date of service: 06/28/18 Principal diagnosis: anemia, sq cell ca Interval history: Patient was seen and examined at the bedside. Objective - Vital Signs Vital signs: Vital Signs - 12hr 06/27/18 06/27/18 06/27/18 21:30 21:45 22:00 Temperature Pulse Rate 98 H 97 H 98 H Pulse Rate [ From Monitor] Respiratory 30 H 30 H 27 H Rate Blood Pressure 136/90 139/90 138/89 O2 Sat by Pulse 100 100 99 Oximetry 06/27/18 06/27/18 06/27/18 22:15 22:30 22:45 Temperature Pulse Rate 97 H 97 H 100 H Pulse Rate [ From Monitor] Respiratory 30 H 27 H 28 H Rate Blood Pressure 135/87 141/91 146/94 O2 Sat by Pulse 100 99 99 Oximetry 06/27/18 06/27/18 06/27/18 23:00 23:07 23:15 Temperature Pulse Rate 96 H 96 H 96 H Pulse Rate [ From Monitor] Respiratory 30 H 30 H 30 H Rate Blood Pressure 133/88 133/88 132/85 O2 Sat by Pulse 99 99 99 Oximetry 06/27/18 06/27/18 06/28/18 23:30 23:45 00:00 Temperature 98.8 F Pulse Rate 94 H 93 H 94 H Pulse Rate [ 93 H From Monitor] Respiratory 30 H 30 H 30 H Rate Blood Pressure 126/81 126/82 128/82 O2 Sat by Pulse 99 99 99 Oximetry 06/28/18 06/28/18 06/28/18 00:15 00:26 00:30 Temperature Pulse Rate 93 H 93 H 93 H Pulse Rate [ From Monitor] Respiratory 30 H 30 H Rate Blood Pressure 126/82 126/82 122/81 O2 Sat by Pulse 99 99 Oximetry 06/28/18 06/28/18 06/28/18 00:45 01:00 01:15 Temperature Pulse Rate 93 H 93 H 93 H Pulse Rate [ From Monitor] Respiratory 30 H 30 H 30 H Rate Blood Pressure 127/85 133/84 133/86 O2 Sat by Pulse 99 99 100 Oximetry 06/28/18 06/28/18 06/28/18 01:30 01:45 02:00 Temperature Pulse Rate 92 H 92 H 112 H Pulse Rate [ From Monitor] Respiratory 30 H 30 H 18 Rate Blood Pressure 131/86 135/86 135/86 O2 Sat by Pulse 99 100 100 Oximetry 06/28/18 06/28/18 06/28/18 02:15 02:30 02:45 Temperature Pulse Rate 93 H 92 H 92 H Pulse Rate [ From Monitor] Respiratory 30 H 30 H 30 H Rate Blood Pressure 132/84 130/88 131/84 O2 Sat by Pulse 99 99 99 Oximetry 06/28/18 06/28/18 06/28/18 03:00 03:15 03:30 Temperature Pulse Rate 92 H 91 H 92 H Pulse Rate [ From Monitor] Respiratory 30 H 30 H 30 H Rate Blood Pressure 131/86 132/87 135/88 O2 Sat by Pulse 99 100 100 Oximetry 06/28/18 06/28/18 06/28/18 03:45 04:00 04:15 Temperature 98.1 F Pulse Rate 92 H 83 93 H Pulse Rate [ 91 H From Monitor] Respiratory 30 H 30 H 30 H Rate Blood Pressure 130/90 114/59 139/93 O2 Sat by Pulse 99 94 100 Oximetry 06/28/18 06/28/18 06/28/18 04:30 04:45 05:00 Temperature Pulse Rate 91 H 91 H 90 Pulse Rate [ From Monitor] Respiratory 30 H 27 H 22 Rate Blood Pressure 135/89 136/89 128/85 O2 Sat by Pulse 100 99 99 Oximetry 06/28/18 06/28/18 06/28/18 05:15 05:30 05:45 Temperature Pulse Rate 91 H 90 92 H Pulse Rate [ From Monitor] Respiratory 17 15 25 H Rate Blood Pressure 132/89 128/82 139/93 O2 Sat by Pulse 100 100 100 Oximetry 06/28/18 06/28/18 06/28/18 05:55 06:00 06:15 Temperature Pulse Rate 91 H 90 90 Pulse Rate [ From Monitor] Respiratory 38 H 17 Rate Blood Pressure 139/93 129/83 132/85 O2 Sat by Pulse 99 99 Oximetry 06/28/18 06/28/18 06/28/18 06:30 06:45 07:00 Temperature Pulse Rate 105 H 90 90 Pulse Rate [ From Monitor] Respiratory 30 H 27 H 16 Rate Blood Pressure 128/84 129/86 129/86 O2 Sat by Pulse 99 99 99 Oximetry 06/28/18 07:13 Temperature Pulse Rate 90 Pulse Rate [ From Monitor] Respiratory Rate Blood Pressure 129/86 O2 Sat by Pulse 99 Oximetry - General Appearance General appearance: well-developed, appears stated age, intubated, other (on vent) EENT: ATNC Neck: supple Respiratory: Present: Other (coarse breath sounds) Cardiology: regular, S1S2, no murmurs Gastrointestinal: normoactive bowel sounds, other (ostomy and bilateral nephrostomy noted) Neurologic: obtunded Musculoskeletal: other (dependent edema noted) - Lab 06/28/18 09:24 06/28/18 04:54 Most recent lab results Calcium 9.1 mg/dL (8.4-10.2) 06/28/18 04:54 Phosphorus 4.00 mg/dL (2.5-4.5) 06/28/18 04:54 Magnesium 1.80 mg/dL (1.7-2.3) 06/28/18 04:54 Urine Creatinine 99.7 mg/dL (0.1-20.0) H 06/23/18 00:30 Urine Sodium Not Reportable 06/23/18 00:30 Urine Total Protein 272 mg/dL (5-11.8) H 06/23/18 00:30
[2018-06-28 09:42] LABS: Hemoglobin 7.5 gm/dl (11.8-15.2); Mean Corpuscular HGB Conc 33 % (32-34); Mean Corpuscular Hemoglobin 29 pg (28-32); Mean Corpuscular Volume 88 fl (84-94); Platelet Count 240 K/mm3 (140-440); Red Blood Count 2.61 M/mm3 (3.65-5.03); Red Cell Distribution Width 17.5 % (13.2-15.2)
[2018-06-28] MEDS: FERROUS SULFATE PO SCH ×2 (11:00→22:00)
[2018-06-28] MEDS: FOLVITE PO SCH (11:00)
--- NOTE | 2018-06-28 13:40 | Progress Note ---
Subjective Date of service: 06/28/18 Principal diagnosis: anemia, sq cell ca Interval history: I reviewed the nuclear bloow flow study and the critweria for brain purely on cerebral blood flow is not conformed this suggests the problem was anoxia but does not change prognosisi Objective - Vital Sign Vital Signs - 12hr 06/28/18 06/28/18 06/28/18 01:45 02:00 02:15 Temperature Pulse Rate 92 H 112 H 93 H Pulse Rate [ Apical] Pulse Rate [ From Monitor] Pulse Rate [ Left Radial] Pulse Rate [ Right Dorsalis Pedis] Pulse Rate [ Right Radial] Respiratory 30 H 18 30 H Rate Blood Pressure 135/86 135/86 132/84 O2 Sat by Pulse 100 100 99 Oximetry 06/28/18 06/28/18 06/28/18 02:30 02:45 03:00 Temperature Pulse Rate 92 H 92 H 92 H Pulse Rate [ Apical] Pulse Rate [ From Monitor] Pulse Rate [ Left Radial] Pulse Rate [ Right Dorsalis Pedis] Pulse Rate [ Right Radial] Respiratory 30 H 30 H 30 H Rate Blood Pressure 130/88 131/84 131/86 O2 Sat by Pulse 99 99 99 Oximetry 06/28/18 06/28/18 06/28/18 03:15 03:30 03:45 Temperature Pulse Rate 91 H 92 H 92 H Pulse Rate [ Apical] Pulse Rate [ From Monitor] Pulse Rate [ Left Radial] Pulse Rate [ Right Dorsalis Pedis] Pulse Rate [ Right Radial] Respiratory 30 H 30 H 30 H Rate Blood Pressure 132/87 135/88 130/90 O2 Sat by Pulse 100 100 99 Oximetry 06/28/18 06/28/18 06/28/18 04:00 04:15 04:30 Temperature 98.1 F Pulse Rate 83 93 H 91 H Pulse Rate [ Apical] Pulse Rate [ 91 H From Monitor] Pulse Rate [ Left Radial] Pulse Rate [ Right Dorsalis Pedis] Pulse Rate [ Right Radial] Respiratory 30 H 30 H 30 H Rate Blood Pressure 114/59 139/93 135/89 O2 Sat by Pulse 94 100 100 Oximetry 06/28/18 06/28/18 06/28/18 04:45 05:00 05:15 Temperature Pulse Rate 91 H 90 91 H Pulse Rate [ Apical] Pulse Rate [ From Monitor] Pulse Rate [ Left Radial] Pulse Rate [ Right Dorsalis Pedis] Pulse Rate [ Right Radial] Respiratory 27 H 22 17 Rate Blood Pressure 136/89 128/85 132/89 O2 Sat by Pulse 99 99 100 Oximetry 06/28/18 06/28/18 06/28/18 05:30 05:45 05:55 Temperature Pulse Rate 90 92 H 91 H Pulse Rate [ Apical] Pulse Rate [ From Monitor] Pulse Rate [ Left Radial] Pulse Rate [ Right Dorsalis Pedis] Pulse Rate [ Right Radial] Respiratory 15 25 H Rate Blood Pressure 128/82 139/93 139/93 O2 Sat by Pulse 100 100 Oximetry 06/28/18 06/28/18 06/28/18 06:00 06:15 06:30 Temperature Pulse Rate 90 90 105 H Pulse Rate [ Apical] Pulse Rate [ From Monitor] Pulse Rate [ Left Radial] Pulse Rate [ Right Dorsalis Pedis] Pulse Rate [ Right Radial] Respiratory 38 H 17 30 H Rate Blood Pressure 129/83 132/85 128/84 O2 Sat by Pulse 99 99 99 Oximetry 06/28/18 06/28/18 06/28/18 06:45 07:00 07:13 Temperature Pulse Rate 90 90 90 Pulse Rate [ Apical] Pulse Rate [ From Monitor] Pulse Rate [ Left Radial] Pulse Rate [ Right Dorsalis Pedis] Pulse Rate [ Right Radial] Respiratory 27 H 16 Rate Blood Pressure 129/86 129/86 129/86 O2 Sat by Pulse 99 99 99 Oximetry 06/28/18 06/28/18 06/28/18 07:15 07:30 07:45 Temperature Pulse Rate 90 91 H 87 Pulse Rate [ Apical] Pulse Rate [ From Monitor] Pulse Rate [ Left Radial] Pulse Rate [ Right Dorsalis Pedis] Pulse Rate [ Right Radial] Respiratory 19 25 H 17 Rate Blood Pressure 134/91 136/89 122/80 O2 Sat by Pulse 99 99 99 Oximetry 06/28/18 06/28/18 06/28/18 08:00 08:15 08:30 Temperature 97.7 F Pulse Rate 90 90 88 Pulse Rate [ 75 Apical] Pulse Rate [ From Monitor] Pulse Rate [ 72 Left Radial] Pulse Rate [ 75 Right Dorsalis Pedis] Pulse Rate [ 72 Right Radial] Respiratory 29 H 19 22 Rate Blood Pressure 128/85 131/84 121/81 O2 Sat by Pulse 99 100 100 Oximetry 10/16/18 10/16/18 10/16/18 08:45 09:00 09:15 Temperature Pulse Rate 93 H 92 H 91 H Pulse Rate [ Apical] Pulse Rate [ From Monitor] Pulse Rate [ Left Radial] Pulse Rate [ Right Dorsalis Pedis] Pulse Rate [ Right Radial] Respiratory 26 H 24 30 H Rate Blood Pressure 128/85 140/91 134/88 O2 Sat by Pulse 99 100 100 Oximetry 06/28/18 06/28/18 06/28/18 09:30 09:45 10:00 Temperature Pulse Rate 92 H 91 H 88 Pulse Rate [ Apical] Pulse Rate [ From Monitor] Pulse Rate [ Left Radial] Pulse Rate [ Right Dorsalis Pedis] Pulse Rate [ Right Radial] Respiratory 30 H 30 H 30 H Rate Blood Pressure 136/91 133/89 136/90 O2 Sat by Pulse 100 100 100 Oximetry 06/28/18 06/28/18 06/28/18 10:15 10:30 10:45 Temperature Pulse Rate 92 H 91 H 91 H Pulse Rate [ Apical] Pulse Rate [ From Monitor] Pulse Rate [ Left Radial] Pulse Rate [ Right Dorsalis Pedis] Pulse Rate [ Right Radial] Respiratory 30 H 30 H 30 H Rate Blood Pressure 141/94 140/93 141/92 O2 Sat by Pulse 100 100 100 Oximetry 06/28/18 06/28/18 06/28/18 11:00 11:15 11:30 Temperature Pulse Rate 91 H 91 H 91 H Pulse Rate [ Apical] Pulse Rate [ From Monitor] Pulse Rate [ Left Radial] Pulse Rate [ Right Dorsalis Pedis] Pulse Rate [ Right Radial] Respiratory 30 H 30 H 30 H Rate Blood Pressure 141/91 141/94 139/92 O2 Sat by Pulse 100 100 100 Oximetry 06/28/18 06/28/18 06/28/18 11:45 12:00 12:15 Temperature Pulse Rate 91 H 91 H 88 Pulse Rate [ Apical] Pulse Rate [ From Monitor] Pulse Rate [ Left Radial] Pulse Rate [ Right Dorsalis Pedis] Pulse Rate [ Right Radial] Respiratory 30 H 30 H 30 H Rate Blood Pressure 142/94 136/91 140/91 O2 Sat by Pulse 100 100 100 Oximetry 06/28/18 06/28/18 12:30 12:45 Temperature Pulse Rate 87 87 Pulse Rate [ Apical] Pulse Rate [ From Monitor] Pulse Rate [ Left Radial] Pulse Rate [ Right Dorsalis Pedis] Pulse Rate [ Right Radial] Respiratory 30 H 30 H Rate Blood Pressure 135/88 137/90 O2 Sat by Pulse 99 99 Oximetry - Laboratory Findings CBC and BMP: 06/28/18 09:24 06/28/18 04:54 Abnormal Lab Findings: Abnormal Labs 05/13/18 05/13/18 05/13/18 04:27 04:27 19:39 WBC RBC 3.13 L Hgb 9.4 L Hct 26.8 L MCV MCHC 35 H RDW Plt Count Lymph % (Auto) [place] % (Auto) 9.6 H Lymph # [place] # Seg Neutrophils % Seg Neuts % (Manual) Lymphocytes % (Manual) Monocytes % (Manual) Seg Neutrophils # Seg Neutrophils # Man Lymphocytes # (Manual) Monocytes # (Manual) PT INR APTT Heparin Anti-Xa Level POC ABG pH POC ABG pCO2 POC ABG pO2 Sodium 132 L Potassium 5.5 H Chloride 94.1 L Carbon Dioxide 19 L BUN 72 H Creatinine 14.4 H Glucose POC Glucose Lactic Acid Calcium Phosphorus Magnesium Iron TIBC AST ALT Alkaline Phosphatase Lactate Dehydrogenase Total Creatine Kinase C-Reactive Protein Total Protein Albumin 2.8 L Prealbumin CA 19-9 Antigen Folate PTH Intact Urine WBC (Auto) Urine Creatinine 66.0 H Urine Chloride 27.8 L Urine Total Protein 24 H Fluid Glucose Fluid Total Protein Vancomycin Trough Miscellaneous Test Crossmatch 05/13/18 05/14/18 05/14/18 20:00 05:05 05:05 WBC RBC Hgb Hct MCV MCHC RDW Plt Count Lymph % (Auto) [place] % (Auto) Lymph # [place] # Seg Neutrophils % Seg Neuts % (Manual) Lymphocytes % (Manual) Monocytes % (Manual) Seg Neutrophils # Seg Neutrophils # Man Lymphocytes # (Manual) Monocytes # (Manual) PT INR APTT Heparin Anti-Xa Level POC ABG pH POC ABG pCO2 POC ABG pO2 Sodium 132 L 131 L Potassium 5.2 H 5.8 H Chloride 93.0 L 95.6 L Carbon Dioxide 19 L 20 L BUN 74 H 81 H Creatinine 15.0 H 16.6 H Glucose 134 H 127 H POC Glucose Lactic Acid Calcium 8.2 L 7.9 L Phosphorus 6.30 H Magnesium Iron TIBC AST ALT Alkaline Phosphatase Lactate Dehydrogenase Total Creatine Kinase 236 H C-Reactive Protein Total Protein Albumin Prealbumin CA 19-9 Antigen Folate PTH Intact 65.37 H Urine WBC (Auto) Urine Creatinine Urine Chloride Urine Total Protein Fluid Glucose Fluid Total Protein Vancomycin Trough Miscellaneous Test Crossmatch 05/14/18 05/14/18 05/14/18 09:28 10:56 13:29 WBC RBC Hgb Hct MCV MCHC RDW Plt Count Lymph % (Auto) [place] % (Auto) Lymph # [place] # Seg Neutrophils % Seg Neuts % (Manual) Lymphocytes % (Manual) Monocytes % (Manual) Seg Neutrophils # Seg Neutrophils # Man Lymphocytes # (Manual) Monocytes # (Manual) PT INR APTT 38.2 H Heparin Anti-Xa Level POC ABG pH POC ABG pCO2 POC ABG pO2 Sodium Potassium Chloride Carbon Dioxide BUN Creatinine Glucose POC Glucose 127 H 126 H Lactic Acid Calcium Phosphorus Magnesium Iron TIBC AST ALT Alkaline Phosphatase Lactate Dehydrogenase Total Creatine Kinase C-Reactive Protein Total Protein Albumin Prealbumin CA 19-9 Antigen Folate PTH Intact Urine WBC (Auto) Urine Creatinine Urine Chloride Urine Total Protein Fluid Glucose Fluid Total Protein Vancomycin Trough Miscellaneous Test Crossmatch 05/15/18 05/15/18 05/16/18 08:06 08:06 07:02 WBC RBC 2.84 L 2.74 L Hgb 8.5 L 8.5 L Hct 24.2 L 23.5 L MCV MCHC 35 H 36 H RDW Plt Count Lymph % (Auto) [place] % (Auto) 10.4 H 11.0 H Lymph # 1.1 L [place] # 0.9 H Seg Neutrophils % 72.6 H Seg Neuts % (Manual) Lymphocytes % (Manual) Monocytes % (Manual) Seg Neutrophils # Seg Neutrophils # Man Lymphocytes # (Manual) Monocytes # (Manual) PT INR APTT Heparin Anti-Xa Level POC ABG pH POC ABG pCO2 POC ABG pO2 Sodium Potassium Chloride Carbon Dioxide 19 L BUN 66 H Creatinine 12.0 H Glucose 115 H POC Glucose Lactic Acid Calcium 8.1 L Phosphorus Magnesium Iron TIBC AST ALT Alkaline Phosphatase Lactate Dehydrogenase Total Creatine Kinase C-Reactive Protein Total Protein Albumin Prealbumin CA 19-9 Antigen Folate PTH Intact Urine WBC (Auto) Urine Creatinine Urine Chloride Urine Total Protein Fluid Glucose Fluid Total Protein Vancomycin Trough Miscellaneous Test Crossmatch 05/16/18 05/16/18 05/17/18 07:02 07:02 05:08 WBC RBC 2.78 L Hgb 8.2 L Hct 23.9 L MCV MCHC RDW Plt Count Lymph % (Auto) [place] % (Auto) 13.9 H Lymph # [place] # 0.9 H Seg Neutrophils % Seg Neuts % (Manual) Lymphocytes % (Manual) Monocytes % (Manual) Seg Neutrophils # Seg Neutrophils # Man Lymphocytes # (Manual) Monocytes # (Manual) PT INR APTT Heparin Anti-Xa Level POC ABG pH POC ABG pCO2 POC ABG pO2 Sodium Potassium Chloride Carbon Dioxide BUN 28 H Creatinine 2.4 H D Glucose POC Glucose Lactic Acid Calcium 8.3 L Phosphorus Magnesium 1.50 L Iron 24 L TIBC 160 L AST ALT Alkaline Phosphatase Lactate Dehydrogenase Total Creatine Kinase C-Reactive Protein Total Protein Albumin Prealbumin CA 19-9 Antigen Folate 5.39 L PTH Intact Urine WBC (Auto) Urine Creatinine Urine Chloride Urine Total Protein Fluid Glucose Fluid Total Protein Vancomycin Trough Miscellaneous Test Crossmatch 05/17/18 05/18/18 05/18/18 05:08 05:57 05:57 WBC RBC 2.79 L Hgb 8.3 L Hct 24.0 L MCV MCHC 35 H RDW Plt Count Lymph % (Auto) [place] % (Auto) 11.8 H Lymph # [place] # 0.9 H Seg Neutrophils % Seg Neuts % (Manual) Lymphocytes % (Manual) Monocytes % (Manual) Seg Neutrophils # Seg Neutrophils # Man Lymphocytes # (Manual) Monocytes # (Manual) PT INR APTT Heparin Anti-Xa Level POC ABG pH POC ABG pCO2 POC ABG pO2 Sodium Potassium Chloride Carbon Dioxide BUN Creatinine Glucose POC Glucose Lactic Acid Calcium 7.7 L 8.0 L Phosphorus Magnesium 1.60 L Iron TIBC AST ALT Alkaline Phosphatase Lactate Dehydrogenase Total Creatine Kinase C-Reactive Protein Total Protein Albumin Prealbumin CA 19-9 Antigen Folate PTH Intact Urine WBC (Auto) Urine Creatinine Urine Chloride Urine Total Protein Fluid Glucose Fluid Total Protein Vancomycin Trough Miscellaneous Test Crossmatch 05/19/18 05/19/18 05/20/18 05:33 05:33 05:38 WBC RBC 2.95 L Hgb 8.8 L Hct 25.8 L MCV MCHC RDW Plt Count Lymph % (Auto) 10.1 L [place] % (Auto) Lymph # 1.1 L [place] # Seg Neutrophils % 85.2 H Seg Neuts % (Manual) Lymphocytes % (Manual) Monocytes % (Manual) Seg Neutrophils # 9.0 H Seg Neutrophils # Man Lymphocytes # (Manual) Monocytes # (Manual) PT INR APTT Heparin Anti-Xa Level POC ABG pH POC ABG pCO2 POC ABG pO2 Sodium 135 L Potassium Chloride Carbon Dioxide BUN Creatinine Glucose 132 H POC Glucose Lactic Acid Calcium 7.8 L 8.3 L Phosphorus Magnesium 1.40 L Iron TIBC AST ALT Alkaline Phosphatase Lactate Dehydrogenase Total Creatine Kinase C-Reactive Protein Total Protein Albumin Prealbumin CA 19-9 Antigen Folate PTH Intact Urine WBC (Auto) Urine Creatinine Urine Chloride Urine Total Protein Fluid Glucose Fluid Total Protein Vancomycin Trough Miscellaneous Test Crossmatch 05/21/18 05/21/18 05/22/18 04:46 15:30 06:49 WBC 20.0 H RBC 2.70 L Hgb 7.8 L Hct 23.3 L MCV MCHC RDW Plt Count Lymph % (Auto) [place] % (Auto) Lymph # [place] # Seg Neutrophils % Seg Neuts % (Manual) 85.0 H Lymphocytes % (Manual) 4.0 L Monocytes % (Manual) Seg Neutrophils # Seg Neutrophils # Man 17.0 H Lymphocytes # (Manual) 0.8 L Monocytes # (Manual) PT INR APTT Heparin Anti-Xa Level POC ABG pH POC ABG pCO2 POC ABG pO2 Sodium 135 L Potassium 3.5 L Chloride Carbon Dioxide 21 L BUN 22 H Creatinine Glucose POC Glucose Lactic Acid Calcium 8.1 L Phosphorus Magnesium Iron TIBC AST ALT Alkaline Phosphatase Lactate Dehydrogenase Total Creatine Kinase C-Reactive Protein Total Protein Albumin Prealbumin CA 19-9 Antigen Folate PTH Intact Urine WBC (Auto) 28.0 H Urine Creatinine Urine Chloride Urine Total Protein Fluid Glucose Fluid Total Protein Vancomycin Trough Miscellaneous Test Crossmatch 05/22/18 05/22/18 05/23/18 06:49 11:23 09:03 WBC RBC Hgb Hct MCV MCHC RDW Plt Count Lymph % (Auto) [place] % (Auto) Lymph # [place] # Seg Neutrophils % Seg Neuts % (Manual) Lymphocytes % (Manual) Monocytes % (Manual) Seg Neutrophils # Seg Neutrophils # Man Lymphocytes # (Manual) Monocytes # (Manual) PT INR APTT Heparin Anti-Xa Level POC ABG pH POC ABG pCO2 POC ABG pO2 Sodium 134 L Potassium 3.5 L Chloride Carbon Dioxide 21 L BUN 35 H 36 H Creatinine 1.7 H Glucose 107 H POC Glucose Lactic Acid Calcium 7.9 L Phosphorus Magnesium 2.50 H Iron TIBC AST ALT Alkaline Phosphatase Lactate Dehydrogenase Total Creatine Kinase C-Reactive Protein Total Protein Albumin Prealbumin CA 19-9 Antigen Folate PTH Intact Urine WBC (Auto) Urine Creatinine Urine Chloride Urine Total Protein Fluid Glucose Fluid Total Protein Vancomycin Trough Miscellaneous Test Crossmatch See Detail 05/23/18 05/23/18 05/23/18 09:03 09:03 17:34 WBC 26.3 H RBC 3.57 L Hgb 10.4 L Hct 31.1 L D MCV MCHC RDW Plt Count Lymph % (Auto) [place] % (Auto) Lymph # [place] # Seg Neutrophils % Seg Neuts % (Manual) Lymphocytes % (Manual) Monocytes % (Manual) Seg Neutrophils # Seg Neutrophils # Man Lymphocytes # (Manual) Monocytes # (Manual) PT 18.3 H INR 1.43 H APTT 40.0 H Heparin Anti-Xa Level POC ABG pH POC ABG pCO2 POC ABG pO2 Sodium Potassium Chloride Carbon Dioxide BUN Creatinine Glucose POC Glucose 108 H Lactic Acid Calcium Phosphorus Magnesium Iron TIBC AST ALT Alkaline Phosphatase Lactate Dehydrogenase Total Creatine Kinase C-Reactive Protein Total Protein Albumin Prealbumin CA 19-9 Antigen Folate PTH Intact Urine WBC (Auto) Urine Creatinine Urine Chloride Urine Total Protein Fluid Glucose Fluid Total Protein Vancomycin Trough Miscellaneous Test Crossmatch 05/23/18 05/24/18 05/24/18 21:14 04:43 08:04 WBC RBC Hgb Hct MCV MCHC RDW Plt Count Lymph % (Auto) [place] % (Auto) Lymph # [place] # Seg Neutrophils % Seg Neuts % (Manual) Lymphocytes % (Manual) Monocytes % (Manual) Seg Neutrophils # Seg Neutrophils # Man Lymphocytes # (Manual) Monocytes # (Manual) PT INR APTT Heparin Anti-Xa Level POC ABG pH POC ABG pCO2 POC ABG pO2 Sodium 146 H Potassium Chloride 108.6 H Carbon Dioxide BUN 33 H Creatinine Glucose 109 H POC Glucose 110 H 106 H Lactic Acid Calcium 8.3 L Phosphorus Magnesium 2.50 H Iron TIBC AST ALT Alkaline Phosphatase Lactate Dehydrogenase Total Creatine Kinase C-Reactive Protein Total Protein Albumin Prealbumin CA 19-9 Antigen Folate PTH Intact Urine WBC (Auto) Urine Creatinine Urine Chloride Urine Total Protein Fluid Glucose Fluid Total Protein Vancomycin Trough Miscellaneous Test Crossmatch 05/25/18 05/25/18 05/25/18 05:42 05:49 19:50 WBC RBC Hgb Hct MCV MCHC RDW Plt Count Lymph % (Auto) [place] % (Auto) Lymph # [place] # Seg Neutrophils % Seg Neuts % (Manual) Lymphocytes % (Manual) Monocytes % (Manual) Seg Neutrophils # Seg Neutrophils # Man Lymphocytes # (Manual) Monocytes # (Manual) PT INR APTT Heparin Anti-Xa Level POC ABG pH POC ABG pCO2 POC ABG pO2 Sodium 150 H Potassium Chloride 112.5 H Carbon Dioxide BUN 34 H Creatinine Glucose 102 H POC Glucose 107 H Lactic Acid Calcium Phosphorus Magnesium Iron TIBC AST ALT Alkaline Phosphatase Lactate Dehydrogenase Total Creatine Kinase C-Reactive Protein 34.50 H Total Protein Albumin Prealbumin CA 19-9 Antigen Folate PTH Intact Urine WBC (Auto) Urine Creatinine Urine Chloride Urine Total Protein Fluid Glucose Fluid Total Protein Vancomycin Trough Miscellaneous Test Crossmatch 05/25/18 05/25/18 05/25/18 19:50 21:05 22:46 WBC RBC Hgb Hct MCV MCHC RDW Plt Count Lymph % (Auto) [place] % (Auto) Lymph # [place] # Seg Neutrophils % Seg Neuts % (Manual) Lymphocytes % (Manual) Monocytes % (Manual) Seg Neutrophils # Seg Neutrophils # Man Lymphocytes # (Manual) Monocytes # (Manual) PT INR APTT Heparin Anti-Xa Level POC ABG pH 7.483 H POC ABG pCO2 24.0 L POC ABG pO2 72 L Sodium Potassium Chloride Carbon Dioxide BUN Creatinine Glucose POC Glucose Lactic Acid 5.90 H* Calcium Phosphorus Magnesium Iron TIBC AST ALT Alkaline Phosphatase Lactate Dehydrogenase Total Creatine Kinase C-Reactive Protein Total Protein Albumin Prealbumin CA 19-9 Antigen Folate PTH Intact Urine WBC (Auto) Urine Creatinine Urine Chloride Urine Total Protein Fluid Glucose Fluid Total Protein Vancomycin Trough 25.1 H Miscellaneous Test Crossmatch 05/25/18 05/26/18 05/26/18 22:46 00:21 00:51 WBC RBC Hgb Hct MCV MCHC RDW Plt Count Lymph % (Auto) [place] % (Auto) Lymph # [place] # Seg Neutrophils % Seg Neuts % (Manual) Lymphocytes % (Manual) Monocytes % (Manual) Seg Neutrophils # Seg Neutrophils # Man Lymphocytes # (Manual) Monocytes # (Manual) PT INR APTT Heparin Anti-Xa Level POC ABG pH POC ABG pCO2 POC ABG pO2 Sodium Potassium Chloride Carbon Dioxide BUN Creatinine Glucose POC Glucose 133 H Lactic Acid 8.10 H* 6.20 H* Calcium Phosphorus Magnesium Iron TIBC AST ALT Alkaline Phosphatase Lactate Dehydrogenase Total Creatine Kinase C-Reactive Protein Total Protein Albumin Prealbumin CA 19-9 Antigen Folate PTH Intact Urine WBC (Auto) Urine Creatinine Urine Chloride Urine Total Protein Fluid Glucose Fluid Total Protein Vancomycin Trough Miscellaneous Test Crossmatch 05/26/18 05/26/18 05/26/18 01:13 02:24 02:24 WBC 18.7 H RBC Hgb 11.6 L Hct MCV MCHC RDW Plt Count Lymph % (Auto) [place] % (Auto) Lymph # [place] # Seg Neutrophils % Seg Neuts % (Manual) Lymphocytes % (Manual) Monocytes % (Manual) Seg Neutrophils # Seg Neutrophils # Man Lymphocytes # (Manual) Monocytes # (Manual) PT INR APTT Heparin Anti-Xa Level POC ABG pH POC ABG pCO2 POC ABG pO2 Sodium 147 H Potassium 6.2 H* D Chloride 111.9 H Carbon Dioxide 19 L BUN 80 H Creatinine 5.1 H D Glucose 112 H POC Glucose Lactic Acid 5.20 H* Calcium 6.7 L D Phosphorus Magnesium Iron TIBC AST ALT Alkaline Phosphatase Lactate Dehydrogenase Total Creatine Kinase C-Reactive Protein Total Protein Albumin Prealbumin CA 19-9 Antigen Folate PTH Intact Urine WBC (Auto) Urine Creatinine Urine Chloride Urine Total Protein Fluid Glucose Fluid Total Protein Vancomycin Trough Miscellaneous Test Crossmatch 05/26/18 05/26/18 05/26/18 04:20 04:20 05:39 WBC RBC Hgb Hct MCV MCHC RDW Plt Count Lymph % (Auto) [place] % (Auto) Lymph # [place] # Seg Neutrophils % Seg Neuts % (Manual) Lymphocytes % (Manual) Monocytes % (Manual) Seg Neutrophils # Seg Neutrophils # Man Lymphocytes # (Manual) Monocytes # (Manual) PT INR APTT Heparin Anti-Xa Level POC ABG pH POC ABG pCO2 POC ABG pO2 Sodium 150 H Potassium Chloride 110.0 H Carbon Dioxide 19 L BUN 66 H Creatinine Glucose 166 H POC Glucose 187 H Lactic Acid 5.10 H* Calcium 6.9 L Phosphorus 6.70 H D Magnesium Iron TIBC AST ALT Alkaline Phosphatase Lactate Dehydrogenase Total Creatine Kinase C-Reactive Protein Total Protein Albumin Prealbumin CA 19-9 Antigen Folate PTH Intact Urine WBC (Auto) Urine Creatinine Urine Chloride Urine Total Protein Fluid Glucose Fluid Total Protein Vancomycin Trough Miscellaneous Test Crossmatch 05/26/18 05/26/18 05/26/18 06:02 07:29 11:00 WBC RBC Hgb Hct MCV MCHC RDW Plt Count Lymph % (Auto) [place] % (Auto) Lymph # [place] # Seg Neutrophils % Seg Neuts % (Manual) Lymphocytes % (Manual) Monocytes % (Manual) Seg Neutrophils # Seg Neutrophils # Man Lymphocytes # (Manual) Monocytes # (Manual) PT INR APTT Heparin Anti-Xa Level POC ABG pH POC ABG pCO2 28.8 L POC ABG pO2 Sodium Potassium Chloride Carbon Dioxide BUN Creatinine Glucose POC Glucose Lactic Acid 4.80 H* 3.80 H* Calcium Phosphorus Magnesium Iron TIBC AST ALT Alkaline Phosphatase Lactate Dehydrogenase Total Creatine Kinase C-Reactive Protein Total Protein Albumin Prealbumin CA 19-9 Antigen Folate PTH Intact Urine WBC (Auto) Urine Creatinine Urine Chloride Urine Total Protein Fluid Glucose Fluid Total Protein Vancomycin Trough Miscellaneous Test Crossmatch 05/26/18 05/26/18 05/26/18 11:01 12:28 18:00 WBC RBC Hgb Hct MCV MCHC RDW Plt Count Lymph % (Auto) [place] % (Auto) Lymph # [place] # Seg Neutrophils % Seg Neuts % (Manual) Lymphocytes % (Manual) Monocytes % (Manual) Seg Neutrophils # Seg Neutrophils # Man Lymphocytes # (Manual) Monocytes # (Manual) PT INR APTT Heparin Anti-Xa Level POC ABG pH POC ABG pCO2 POC ABG pO2 Sodium 150 H 151 H Potassium 5.3 H D 6.1 H* Chloride 110.3 H 117.0 H Carbon Dioxide 21 L 20 L BUN 75 H 77 H Creatinine 4.3 H D 4.6 H Glucose 161 H POC Glucose 114 H Lactic Acid Calcium 7.5 L 6.7 L Phosphorus Magnesium Iron TIBC AST 1041 H ALT 406 H Alkaline Phosphatase 281 H Lactate Dehydrogenase Total Creatine Kinase C-Reactive Protein Total Protein 4.4 L Albumin 1.3 L Prealbumin CA 19-9 Antigen Folate PTH Intact Urine WBC (Auto) Urine Creatinine Urine Chloride Urine Total Protein Fluid Glucose Fluid Total Protein Vancomycin Trough Miscellaneous Test Crossmatch 05/26/18 05/26/18 05/27/18 18:02 19:17 01:01 WBC 21.7 H RBC 2.70 L Hgb 7.8 L D Hct 24.6 L D MCV MCHC RDW 15.3 H Plt Count Lymph % (Auto) [place] % (Auto) Lymph # [place] # Seg Neutrophils % Seg Neuts % (Manual) 94.0 H Lymphocytes % (Manual) 3.0 L Monocytes % (Manual) Seg Neutrophils # Seg Neutrophils # Man 20.4 H Lymphocytes # (Manual) 0.7 L Monocytes # (Manual) PT INR APTT Heparin Anti-Xa Level POC ABG pH 7.159 L 7.205 L POC ABG pCO2 54.5 H 53.0 H POC ABG pO2 252 H Sodium Potassium Chloride Carbon Dioxide BUN Creatinine Glucose POC Glucose Lactic Acid Calcium Phosphorus Magnesium Iron TIBC AST ALT Alkaline Phosphatase Lactate Dehydrogenase Total Creatine Kinase C-Reactive Protein Total Protein Albumin Prealbumin CA 19-9 Antigen Folate PTH Intact Urine WBC (Auto) Urine Creatinine Urine Chloride Urine Total Protein Fluid Glucose Fluid Total Protein Vancomycin Trough Miscellaneous Test Crossmatch 05/27/18 05/27/18 05/27/18 05:15 05:15 06:11 WBC 24.9 H RBC 2.86 L Hgb 8.1 L Hct 25.9 L MCV MCHC RDW 15.5 H Plt Count Lymph % (Auto) [place] % (Auto) Lymph # [place] # Seg Neutrophils % Seg Neuts % (Manual) Lymphocytes % (Manual) Monocytes % (Manual) Seg Neutrophils # Seg Neutrophils # Man Lymphocytes # (Manual) Monocytes # (Manual) PT INR APTT Heparin Anti-Xa Level POC ABG pH 7.265 L POC ABG pCO2 46.2 H POC ABG pO2 111 H Sodium 149 H Potassium 6.9 H* Chloride 113.5 H Carbon Dioxide BUN 89 H Creatinine 5.2 H Glucose 118 H POC Glucose Lactic Acid Calcium 7.0 L Phosphorus 9.70 H D Magnesium Iron TIBC AST 876 H ALT 408 H Alkaline Phosphatase Lactate Dehydrogenase Total Creatine Kinase C-Reactive Protein Total Protein 5.2 L Albumin 1.5 L Prealbumin CA 19-9 Antigen Folate PTH Intact Urine WBC (Auto) Urine Creatinine Urine Chloride Urine Total Protein Fluid Glucose Fluid Total Protein Vancomycin Trough Miscellaneous Test Crossmatch 05/27/18 05/27/18 05/27/18 08:48 10:22 10:22 WBC RBC Hgb Hct MCV MCHC RDW Plt Count Lymph % (Auto) [place] % (Auto) Lymph # [place] # Seg Neutrophils % Seg Neuts % (Manual) Lymphocytes % (Manual) Monocytes % (Manual) Seg Neutrophils # Seg Neutrophils # Man Lymphocytes # (Manual) Monocytes # (Manual) PT INR APTT Heparin Anti-Xa Level POC ABG pH POC ABG pCO2 POC ABG pO2 Sodium 146 H Potassium 6.1 H* Chloride 108.2 H Carbon Dioxide 21 L BUN 88 H Creatinine 5.6 H Glucose 163 H POC Glucose 164 H Lactic Acid Calcium 6.7 L Phosphorus Magnesium Iron TIBC AST ALT Alkaline Phosphatase Lactate Dehydrogenase Total Creatine Kinase C-Reactive Protein 40.70 H Total Protein Albumin Prealbumin CA 19-9 Antigen Folate PTH Intact Urine WBC (Auto) Urine Creatinine Urine Chloride Urine Total Protein Fluid Glucose Fluid Total Protein Vancomycin Trough Miscellaneous Test Crossmatch 05/27/18 05/27/18 05/27/18 13:02 17:39 23:27 WBC RBC Hgb Hct MCV MCHC RDW Plt Count Lymph % (Auto) [place] % (Auto) Lymph # [place] # Seg Neutrophils % Seg Neuts % (Manual) Lymphocytes % (Manual) Monocytes % (Manual) Seg Neutrophils # Seg Neutrophils # Man Lymphocytes # (Manual) Monocytes # (Manual) PT INR APTT Heparin Anti-Xa Level POC ABG pH POC ABG pCO2 POC ABG pO2 Sodium Potassium Chloride Carbon Dioxide BUN Creatinine Glucose POC Glucose 59 L 132 H Lactic Acid Calcium Phosphorus Magnesium Iron TIBC AST ALT Alkaline Phosphatase Lactate Dehydrogenase Total Creatine Kinase C-Reactive Protein Total Protein Albumin Prealbumin CA 19-9 Antigen Folate PTH Intact Urine WBC (Auto) Urine Creatinine Urine Chloride Urine Total Protein Fluid Glucose Fluid Total Protein Vancomycin Trough Miscellaneous Test Flexitest 1 H Crossmatch 05/27/18 05/28/18 05/28/18 Unknown 04:32 05:00 WBC RBC Hgb Hct MCV MCHC RDW Plt Count Lymph % (Auto) [place] % (Auto) Lymph # [place] # Seg Neutrophils % Seg Neuts % (Manual) Lymphocytes % (Manual) Monocytes % (Manual) Seg Neutrophils # Seg Neutrophils # Man Lymphocytes # (Manual) Monocytes # (Manual) PT INR APTT Heparin Anti-Xa Level POC ABG pH POC ABG pCO2 POC ABG pO2 134 H Sodium Potassium Chloride Carbon Dioxide BUN 69 H Creatinine 4.4 H Glucose 118 H POC Glucose Lactic Acid Calcium 8.0 L D Phosphorus 6.80 H D Magnesium Iron TIBC AST ALT Alkaline Phosphatase Lactate Dehydrogenase Total Creatine Kinase C-Reactive Protein Total Protein Albumin Prealbumin CA 19-9 Antigen Folate PTH Intact Urine WBC (Auto) 120.0 H Urine Creatinine Urine Chloride Urine Total Protein Fluid Glucose Fluid Total Protein Vancomycin Trough Miscellaneous Test Crossmatch 05/28/18 05/28/18 05/28/18 05:00 05:27 13:04 WBC 26.5 H RBC 2.69 L Hgb 7.7 L Hct 23.6 L MCV MCHC RDW Plt Count Lymph % (Auto) [place] % (Auto) Lymph # [place] # Seg Neutrophils % Seg Neuts % (Manual) 96.0 H Lymphocytes % (Manual) 0 L Monocytes % (Manual) Seg Neutrophils # Seg Neutrophils # Man 25.4 H Lymphocytes # (Manual) 0.0 L Monocytes # (Manual) PT INR APTT Heparin Anti-Xa Level POC ABG pH POC ABG pCO2 POC ABG pO2 Sodium Potassium Chloride Carbon Dioxide BUN Creatinine Glucose POC Glucose 128 H 155 H Lactic Acid Calcium Phosphorus Magnesium Iron TIBC AST ALT Alkaline Phosphatase Lactate Dehydrogenase Total Creatine Kinase C-Reactive Protein Total Protein Albumin Prealbumin CA 19-9 Antigen Folate PTH Intact Urine WBC (Auto) Urine Creatinine Urine Chloride Urine Total Protein Fluid Glucose Fluid Total Protein Vancomycin Trough Miscellaneous Test Crossmatch 05/28/18 05/29/18 05/29/18 17:56 03:35 04:00 WBC RBC Hgb Hct MCV MCHC RDW Plt Count Lymph % (Auto) [place] % (Auto) Lymph # [place] # Seg Neutrophils % Seg Neuts % (Manual) Lymphocytes % (Manual) Monocytes % (Manual) Seg Neutrophils # Seg Neutrophils # Man Lymphocytes # (Manual) Monocytes # (Manual) PT INR APTT Heparin Anti-Xa Level POC ABG pH 7.471 H POC ABG pCO2 POC ABG pO2 78 L Sodium Potassium Chloride Carbon Dioxide BUN 50 H Creatinine 3.9 H Glucose POC Glucose 110 H Lactic Acid Calcium 7.7 L Phosphorus Magnesium 1.50 L Iron TIBC AST 218 H ALT 204 H Alkaline Phosphatase Lactate Dehydrogenase Total Creatine Kinase C-Reactive Protein Total Protein 5.4 L Albumin 1.6 L Prealbumin CA 19-9 Antigen Folate PTH Intact Urine WBC (Auto) Urine Creatinine Urine Chloride Urine Total Protein Fluid Glucose Fluid Total Protein Vancomycin Trough Miscellaneous Test Crossmatch 05/29/18 05/29/18 05/30/18 11:51 23:56 04:54 WBC RBC Hgb Hct MCV MCHC RDW Plt Count Lymph % (Auto) [place] % (Auto) Lymph # [place] # Seg Neutrophils % Seg Neuts % (Manual) Lymphocytes % (Manual) Monocytes % (Manual) Seg Neutrophils # Seg Neutrophils # Man Lymphocytes # (Manual) Monocytes # (Manual) PT INR APTT Heparin Anti-Xa Level POC ABG pH POC ABG pCO2 POC ABG pO2 Sodium Potassium Chloride Carbon Dioxide BUN Creatinine Glucose POC Glucose 131 H 119 H 115 H Lactic Acid Calcium Phosphorus Magnesium Iron TIBC AST ALT Alkaline Phosphatase Lactate Dehydrogenase Total Creatine Kinase C-Reactive Protein Total Protein Albumin Prealbumin CA 19-9 Antigen Folate PTH Intact Urine WBC (Auto) Urine Creatinine Urine Chloride Urine Total Protein Fluid Glucose Fluid Total Protein Vancomycin Trough Miscellaneous Test Crossmatch 05/30/18 05/30/18 05/30/18 05:07 05:15 05:15 WBC 16.2 H RBC 2.53 L Hgb 7.4 L Hct 21.9 L MCV MCHC RDW Plt Count Lymph % (Auto) [place] % (Auto) Lymph # [place] # Seg Neutrophils % Seg Neuts % (Manual) Lymphocytes % (Manual) Monocytes % (Manual) Seg Neutrophils # Seg Neutrophils # Man Lymphocytes # (Manual) Monocytes # (Manual) PT INR APTT Heparin Anti-Xa Level POC ABG pH POC ABG pCO2 34.5 L POC ABG pO2 133 H Sodium 135 L Potassium Chloride 97.5 L Carbon Dioxide BUN 69 H Creatinine 5.4 H Glucose 105 H POC Glucose Lactic Acid Calcium 7.5 L Phosphorus 5.30 H D Magnesium Iron TIBC AST ALT Alkaline Phosphatase Lactate Dehydrogenase Total Creatine Kinase C-Reactive Protein Total Protein Albumin Prealbumin CA 19-9 Antigen Folate PTH Intact Urine WBC (Auto) Urine Creatinine Urine Chloride Urine Total Protein Fluid Glucose Fluid Total Protein Vancomycin Trough Miscellaneous Test Crossmatch 05/30/18 05/30/18 05/31/18 12:13 17:10 04:50 WBC 18.7 H RBC 2.86 L Hgb 8.2 L Hct 24.8 L MCV MCHC RDW Plt Count Lymph % (Auto) [place] % (Auto) Lymph # [place] # Seg Neutrophils % Seg Neuts % (Manual) 91.0 H Lymphocytes % (Manual) 2.0 L Monocytes % (Manual) Seg Neutrophils # Seg Neutrophils # Man 17.0 H Lymphocytes # (Manual) 0.4 L Monocytes # (Manual) PT INR APTT Heparin Anti-Xa Level POC ABG pH POC ABG pCO2 POC ABG pO2 Sodium Potassium Chloride Carbon Dioxide BUN Creatinine Glucose POC Glucose 132 H 122 H Lactic Acid Calcium Phosphorus Magnesium Iron TIBC AST ALT Alkaline Phosphatase Lactate Dehydrogenase Total Creatine Kinase C-Reactive Protein Total Protein Albumin Prealbumin CA 19-9 Antigen Folate PTH Intact Urine WBC (Auto) Urine Creatinine Urine Chloride Urine Total Protein Fluid Glucose Fluid Total Protein Vancomycin Trough Miscellaneous Test Crossmatch 05/31/18 05/31/18 05/31/18 04:50 05:45 11:37 WBC RBC Hgb Hct MCV MCHC RDW Plt Count Lymph % (Auto) [place] % (Auto) Lymph # [place] # Seg Neutrophils % Seg Neuts % (Manual) Lymphocytes % (Manual) Monocytes % (Manual) Seg Neutrophils # Seg Neutrophils # Man Lymphocytes # (Manual) Monocytes # (Manual) PT INR APTT Heparin Anti-Xa Level POC ABG pH POC ABG pCO2 POC ABG pO2 Sodium 132 L Potassium Chloride 92.4 L Carbon Dioxide BUN 77 H Creatinine 5.9 H Glucose POC Glucose 111 H 136 H Lactic Acid Calcium 7.3 L Phosphorus 6.40 H D Magnesium Iron TIBC AST ALT Alkaline Phosphatase Lactate Dehydrogenase Total Creatine Kinase C-Reactive Protein Total Protein Albumin Prealbumin CA 19-9 Antigen Folate PTH Intact Urine WBC (Auto) Urine Creatinine Urine Chloride Urine Total Protein Fluid Glucose Fluid Total Protein Vancomycin Trough Miscellaneous Test Crossmatch 05/31/18 06/01/18 06/01/18 17:52 00:09 04:00 WBC RBC Hgb Hct MCV MCHC RDW Plt Count Lymph % (Auto) [place] % (Auto) Lymph # [place] # Seg Neutrophils % Seg Neuts % (Manual) Lymphocytes % (Manual) Monocytes % (Manual) Seg Neutrophils # Seg Neutrophils # Man Lymphocytes # (Manual) Monocytes # (Manual) PT INR APTT Heparin Anti-Xa Level POC ABG pH POC ABG pCO2 POC ABG pO2 Sodium Potassium Chloride 97.5 L Carbon Dioxide BUN 49 H Creatinine 4.2 H Glucose 104 H POC Glucose 115 H 114 H Lactic Acid Calcium 7.3 L Phosphorus 4.70 H D Magnesium Iron TIBC AST ALT Alkaline Phosphatase Lactate Dehydrogenase Total Creatine Kinase C-Reactive Protein Total Protein Albumin Prealbumin CA 19-9 Antigen Folate PTH Intact Urine WBC (Auto) Urine Creatinine Urine Chloride Urine Total Protein Fluid Glucose Fluid Total Protein Vancomycin Trough Miscellaneous Test Crossmatch 06/01/18 06/01/18 06/02/18 11:10 17:56 00:15 WBC RBC Hgb Hct MCV MCHC RDW Plt Count Lymph % (Auto) [place] % (Auto) Lymph # [place] # Seg Neutrophils % Seg Neuts % (Manual) Lymphocytes % (Manual) Monocytes % (Manual) Seg Neutrophils # Seg Neutrophils # Man Lymphocytes # (Manual) Monocytes # (Manual) PT INR APTT Heparin Anti-Xa Level POC ABG pH POC ABG pCO2 POC ABG pO2 Sodium Potassium Chloride Carbon Dioxide BUN Creatinine Glucose POC Glucose 123 H 126 H 135 H Lactic Acid Calcium Phosphorus Magnesium Iron TIBC AST ALT Alkaline Phosphatase Lactate Dehydrogenase Total Creatine Kinase C-Reactive Protein Total Protein Albumin Prealbumin CA 19-9 Antigen Folate PTH Intact Urine WBC (Auto) Urine Creatinine Urine Chloride Urine Total Protein Fluid Glucose Fluid Total Protein Vancomycin Trough Miscellaneous Test Crossmatch 06/02/18 06/02/18 06/02/18 05:23 12:42 13:05 WBC RBC Hgb Hct MCV MCHC RDW Plt Count Lymph % (Auto) [place] % (Auto) Lymph # [place] # Seg Neutrophils % Seg Neuts % (Manual) Lymphocytes % (Manual) Monocytes % (Manual) Seg Neutrophils # Seg Neutrophils # Man Lymphocytes # (Manual) Monocytes # (Manual) PT 17.1 H INR 1.34 H APTT Heparin Anti-Xa Level POC ABG pH POC ABG pCO2 POC ABG pO2 Sodium Potassium Chloride Carbon Dioxide BUN Creatinine Glucose POC Glucose 135 H 142 H Lactic Acid Calcium Phosphorus Magnesium Iron TIBC AST ALT Alkaline Phosphatase Lactate Dehydrogenase Total Creatine Kinase C-Reactive Protein Total Protein Albumin Prealbumin CA 19-9 Antigen Folate PTH Intact Urine WBC (Auto) Urine Creatinine Urine Chloride Urine Total Protein Fluid Glucose Fluid Total Protein Vancomycin Trough Miscellaneous Test Crossmatch 06/02/18 06/02/18 06/03/18 Unknown Unknown 00:54 WBC 20.8 H RBC 2.67 L Hgb 7.7 L Hct 23.0 L MCV MCHC RDW Plt Count 500 H Lymph % (Auto) [place] % (Auto) Lymph # [place] # Seg Neutrophils % Seg Neuts % (Manual) Lymphocytes % (Manual) Monocytes % (Manual) Seg Neutrophils # Seg Neutrophils # Man Lymphocytes # (Manual) Monocytes # (Manual) PT INR APTT Heparin Anti-Xa Level POC ABG pH POC ABG pCO2 POC ABG pO2 Sodium 136 L Potassium 3.5 L Chloride 96.9 L Carbon Dioxide BUN 62 H Creatinine 4.9 H Glucose 133 H POC Glucose 125 H Lactic Acid Calcium 7.2 L Phosphorus 5.00 H Magnesium Iron TIBC AST 46 H ALT 66 H Alkaline Phosphatase Lactate Dehydrogenase Total Creatine Kinase C-Reactive Protein Total Protein 5.7 L Albumin 1.5 L Prealbumin CA 19-9 Antigen Folate PTH Intact Urine WBC (Auto) Urine Creatinine Urine Chloride Urine Total Protein Fluid Glucose Fluid Total Protein Vancomycin Trough Miscellaneous Test Crossmatch 06/03/18 06/03/18 06/03/18 03:31 09:18 09:18 WBC RBC Hgb Hct MCV MCHC RDW Plt Count Lymph % (Auto) [place] % (Auto) Lymph # [place] # Seg Neutrophils % Seg Neuts % (Manual) Lymphocytes % (Manual) Monocytes % (Manual) Seg Neutrophils # Seg Neutrophils # Man Lymphocytes # (Manual) Monocytes # (Manual) PT 17.1 H INR 1.34 H APTT Heparin Anti-Xa Level POC ABG pH POC ABG pCO2 POC ABG pO2 Sodium 136 L Potassium Chloride Carbon Dioxide BUN 41 H Creatinine 3.4 H Glucose 129 H POC Glucose Lactic Acid Calcium 7.4 L Phosphorus Magnesium Iron TIBC AST ALT Alkaline Phosphatase Lactate Dehydrogenase Total Creatine Kinase C-Reactive Protein 11.10 H Total Protein Albumin Prealbumin CA 19-9 Antigen Folate PTH Intact Urine WBC (Auto) Urine Creatinine Urine Chloride Urine Total Protein Fluid Glucose Fluid Total Protein Vancomycin Trough Miscellaneous Test Crossmatch 06/03/18 06/03/18 06/03/18 16:07 21:18 Unknown WBC RBC Hgb Hct MCV MCHC RDW Plt Count Lymph % (Auto) [place] % (Auto) Lymph # [place] # Seg Neutrophils % Seg Neuts % (Manual) Lymphocytes % (Manual) Monocytes % (Manual) Seg Neutrophils # Seg Neutrophils # Man Lymphocytes # (Manual) Monocytes # (Manual) PT INR APTT Heparin Anti-Xa Level POC ABG pH POC ABG pCO2 POC ABG pO2 Sodium Potassium Chloride Carbon Dioxide BUN Creatinine Glucose POC Glucose 144 H 128 H Lactic Acid Calcium Phosphorus Magnesium Iron TIBC AST ALT Alkaline Phosphatase Lactate Dehydrogenase Total Creatine Kinase C-Reactive Protein Total Protein Albumin Prealbumin CA 19-9 Antigen Folate PTH Intact Urine WBC (Auto) Urine Creatinine Urine Chloride Urine Total Protein Fluid Glucose 10 L Fluid Total Protein 3.7 L Vancomycin Trough Miscellaneous Test Crossmatch 06/04/18 06/04/18 06/04/18 04:31 06:14 11:38 WBC RBC Hgb Hct MCV MCHC RDW Plt Count Lymph % (Auto) [place] % (Auto) Lymph # [place] # Seg Neutrophils % Seg Neuts % (Manual) Lymphocytes % (Manual) Monocytes % (Manual) Seg Neutrophils # Seg Neutrophils # Man Lymphocytes # (Manual) Monocytes # (Manual) PT INR APTT Heparin Anti-Xa Level POC ABG pH POC ABG pCO2 POC ABG pO2 Sodium Potassium Chloride Carbon Dioxide BUN 55 H Creatinine 3.7 H Glucose 151 H POC Glucose 145 H 129 H Lactic Acid Calcium 7.8 L Phosphorus 4.60 H Magnesium Iron TIBC AST ALT Alkaline Phosphatase Lactate Dehydrogenase Total Creatine Kinase C-Reactive Protein Total Protein Albumin Prealbumin CA 19-9 Antigen Folate PTH Intact Urine WBC (Auto) Urine Creatinine Urine Chloride Urine Total Protein Fluid Glucose Fluid Total Protein Vancomycin Trough Miscellaneous Test Crossmatch 06/04/18 06/04/18 06/04/18 17:09 20:00 21:29 WBC RBC Hgb 8.8 L Hct 27.3 L MCV MCHC RDW Plt Count Lymph % (Auto) [place] % (Auto) Lymph # [place] # Seg Neutrophils % Seg Neuts % (Manual) Lymphocytes % (Manual) Monocytes % (Manual) Seg Neutrophils # Seg Neutrophils # Man Lymphocytes # (Manual) Monocytes # (Manual) PT INR APTT Heparin Anti-Xa Level POC ABG pH POC ABG pCO2 POC ABG pO2 Sodium Potassium Chloride Carbon Dioxide BUN Creatinine Glucose POC Glucose 142 H 130 H Lactic Acid Calcium Phosphorus Magnesium Iron TIBC AST ALT Alkaline Phosphatase Lactate Dehydrogenase Total Creatine Kinase C-Reactive Protein Total Protein Albumin Prealbumin CA 19-9 Antigen Folate PTH Intact Urine WBC (Auto) Urine Creatinine Urine Chloride Urine Total Protein Fluid Glucose Fluid Total Protein Vancomycin Trough Miscellaneous Test Crossmatch 06/05/18 06/05/18 06/05/18 06:30 07:00 07:00 WBC 19.3 H RBC 2.94 L Hgb 8.3 L Hct 25.6 L MCV MCHC RDW 15.7 H Plt Count 568 H Lymph % (Auto) 4.7 L [place] % (Auto) Lymph # 0.9 L [place] # 1.1 H Seg Neutrophils % 88.9 H Seg Neuts % (Manual) Lymphocytes % (Manual) Monocytes % (Manual) Seg Neutrophils # 17.2 H Seg Neutrophils # Man Lymphocytes # (Manual) Monocytes # (Manual) PT INR APTT Heparin Anti-Xa Level POC ABG pH POC ABG pCO2 POC ABG pO2 Sodium Potassium 3.4 L D Chloride Carbon Dioxide BUN 67 H Creatinine 3.6 H Glucose 145 H POC Glucose 153 H Lactic Acid Calcium 7.9 L Phosphorus 4.60 H Magnesium Iron TIBC AST ALT Alkaline Phosphatase Lactate Dehydrogenase Total Creatine Kinase C-Reactive Protein Total Protein Albumin Prealbumin CA 19-9 Antigen Folate PTH Intact Urine WBC (Auto) Urine Creatinine Urine Chloride Urine Total Protein Fluid Glucose Fluid Total Protein Vancomycin Trough Miscellaneous Test Crossmatch 06/05/18 06/05/18 06/06/18 12:10 16:01 06:39 WBC RBC Hgb Hct MCV MCHC RDW Plt Count Lymph % (Auto) [place] % (Auto) Lymph # [place] # Seg Neutrophils % Seg Neuts % (Manual) Lymphocytes % (Manual) Monocytes % (Manual) Seg Neutrophils # Seg Neutrophils # Man Lymphocytes # (Manual) Monocytes # (Manual) PT INR APTT Heparin Anti-Xa Level POC ABG pH POC ABG pCO2 POC ABG pO2 Sodium Potassium Chloride Carbon Dioxide BUN Creatinine Glucose POC Glucose 150 H 129 H 131 H Lactic Acid Calcium Phosphorus Magnesium Iron TIBC AST ALT Alkaline Phosphatase Lactate Dehydrogenase Total Creatine Kinase C-Reactive Protein Total Protein Albumin Prealbumin CA 19-9 Antigen Folate PTH Intact Urine WBC (Auto) Urine Creatinine Urine Chloride Urine Total Protein Fluid Glucose Fluid Total Protein Vancomycin Trough Miscellaneous Test Crossmatch 06/06/18 06/06/18 06/06/18 07:14 07:14 07:14 WBC 16.5 H RBC 2.84 L Hgb 8.1 L Hct 25.2 L MCV MCHC RDW 16.4 H Plt Count 526 H Lymph % (Auto) 6.5 L [place] % (Auto) Lymph # 1.1 L [place] # 1.2 H Seg Neutrophils % 85.3 H Seg Neuts % (Manual) Lymphocytes % (Manual) Monocytes % (Manual) Seg Neutrophils # 14.1 H Seg Neutrophils # Man Lymphocytes # (Manual) Monocytes # (Manual) PT INR APTT Heparin Anti-Xa Level POC ABG pH POC ABG pCO2 POC ABG pO2 Sodium Potassium Chloride 109.1 H Carbon Dioxide 21 L BUN 76 H Creatinine 3.5 H Glucose 111 H POC Glucose Lactic Acid Calcium 8.1 L Phosphorus Magnesium Iron TIBC AST ALT Alkaline Phosphatase Lactate Dehydrogenase Total Creatine Kinase C-Reactive Protein 4.70 H Total Protein Albumin Prealbumin CA 19-9 Antigen Folate PTH Intact Urine WBC (Auto) Urine Creatinine Urine Chloride Urine Total Protein Fluid Glucose Fluid Total Protein Vancomycin Trough Miscellaneous Test Crossmatch 06/06/18 06/06/18 06/06/18 11:15 18:00 23:58 WBC RBC Hgb Hct MCV MCHC RDW Plt Count Lymph % (Auto) [place] % (Auto) Lymph # [place] # Seg Neutrophils % Seg Neuts % (Manual) Lymphocytes % (Manual) Monocytes % (Manual) Seg Neutrophils # Seg Neutrophils # Man Lymphocytes # (Manual) Monocytes # (Manual) PT INR APTT Heparin Anti-Xa Level POC ABG pH POC ABG pCO2 POC ABG pO2 Sodium Potassium Chloride Carbon Dioxide BUN Creatinine Glucose POC Glucose 127 H 130 H 114 H Lactic Acid Calcium Phosphorus Magnesium Iron TIBC AST ALT Alkaline Phosphatase Lactate Dehydrogenase Total Creatine Kinase C-Reactive Protein Total Protein Albumin Prealbumin CA 19-9 Antigen Folate PTH Intact Urine WBC (Auto) Urine Creatinine Urine Chloride Urine Total Protein Fluid Glucose Fluid Total Protein Vancomycin Trough Miscellaneous Test Crossmatch 06/07/18 06/07/18 06/07/18 05:45 05:45 05:54 WBC 15.5 H RBC 2.60 L Hgb 7.4 L Hct 23.1 L MCV MCHC RDW 16.5 H Plt Count 506 H Lymph % (Auto) 5.3 L [place] % (Auto) Lymph # 0.8 L [place] # 1.0 H Seg Neutrophils % 86.6 H Seg Neuts % (Manual) Lymphocytes % (Manual) Monocytes % (Manual) Seg Neutrophils # 13.4 H Seg Neutrophils # Man Lymphocytes # (Manual) Monocytes # (Manual) PT INR APTT Heparin Anti-Xa Level POC ABG pH POC ABG pCO2 POC ABG pO2 Sodium Potassium Chloride 108.4 H Carbon Dioxide BUN 84 H Creatinine 3.5 H Glucose 119 H POC Glucose 114 H Lactic Acid Calcium 8.1 L Phosphorus 5.10 H Magnesium Iron TIBC AST ALT Alkaline Phosphatase Lactate Dehydrogenase Total Creatine Kinase C-Reactive Protein Total Protein Albumin Prealbumin CA 19-9 Antigen Folate PTH Intact Urine WBC (Auto) Urine Creatinine Urine Chloride Urine Total Protein Fluid Glucose Fluid Total Protein Vancomycin Trough Miscellaneous Test Crossmatch 06/07/18 06/08/18 06/08/18 12:15 05:05 05:24 WBC RBC Hgb Hct MCV MCHC RDW Plt Count Lymph % (Auto) [place] % (Auto) Lymph # [place] # Seg Neutrophils % Seg Neuts % (Manual) Lymphocytes % (Manual) Monocytes % (Manual) Seg Neutrophils # Seg Neutrophils # Man Lymphocytes # (Manual) Monocytes # (Manual) PT INR APTT Heparin Anti-Xa Level POC ABG pH POC ABG pCO2 POC ABG pO2 Sodium 148 H Potassium Chloride 112.4 H Carbon Dioxide BUN 89 H Creatinine 3.4 H Glucose 120 H POC Glucose 148 H 115 H Lactic Acid Calcium 7.9 L Phosphorus Magnesium Iron TIBC AST ALT Alkaline Phosphatase Lactate Dehydrogenase Total Creatine Kinase C-Reactive Protein Total Protein Albumin Prealbumin CA 19-9 Antigen Folate PTH Intact Urine WBC (Auto) Urine Creatinine Urine Chloride Urine Total Protein Fluid Glucose Fluid Total Protein Vancomycin Trough Miscellaneous Test Crossmatch 06/08/18 06/08/18 06/08/18 21:36 21:43 21:43 WBC RBC 2.98 L Hgb 8.8 L Hct 26.6 L MCV MCHC RDW 16.7 H Plt Count 463 H Lymph % (Auto) 7.9 L [place] % (Auto) Lymph # 0.8 L [place] # Seg Neutrophils % 84.8 H Seg Neuts % (Manual) Lymphocytes % (Manual) Monocytes % (Manual) Seg Neutrophils # 8.6 H Seg Neutrophils # Man Lymphocytes # (Manual) Monocytes # (Manual) PT INR APTT Heparin Anti-Xa Level POC ABG pH POC ABG pCO2 POC ABG pO2 Sodium Potassium Chloride Carbon Dioxide BUN Creatinine Glucose POC Glucose Lactic Acid Calcium Phosphorus Magnesium Iron TIBC AST ALT Alkaline Phosphatase Lactate Dehydrogenase 297 H Total Creatine Kinase C-Reactive Protein Total Protein Albumin Prealbumin CA 19-9 Antigen 57 H Folate PTH Intact Urine WBC (Auto) Urine Creatinine Urine Chloride Urine Total Protein Fluid Glucose Fluid Total Protein Vancomycin Trough Miscellaneous Test Crossmatch 06/09/18 06/09/18 06/09/18 00:05 05:34 05:50 WBC RBC Hgb Hct MCV MCHC RDW Plt Count Lymph % (Auto) [place] % (Auto) Lymph # [place] # Seg Neutrophils % Seg Neuts % (Manual) Lymphocytes % (Manual) Monocytes % (Manual) Seg Neutrophils # Seg Neutrophils # Man Lymphocytes # (Manual) Monocytes # (Manual) PT INR APTT Heparin Anti-Xa Level POC ABG pH POC ABG pCO2 POC ABG pO2 Sodium 153 H Potassium Chloride 117.3 H Carbon Dioxide BUN 84 H Creatinine 3.2 H Glucose 117 H POC Glucose 140 H 146 H Lactic Acid Calcium 7.9 L Phosphorus Magnesium Iron TIBC AST ALT Alkaline Phosphatase Lactate Dehydrogenase Total Creatine Kinase C-Reactive Protein Total Protein Albumin Prealbumin CA 19-9 Antigen Folate PTH Intact Urine WBC (Auto) Urine Creatinine Urine Chloride Urine Total Protein Fluid Glucose Fluid Total Protein Vancomycin Trough Miscellaneous Test Crossmatch 06/09/18 06/09/18 06/09/18 05:50 07:37 10:34 WBC RBC 2.32 L Hgb 6.8 L Hct 20.7 L MCV MCHC RDW 16.7 H Plt Count Lymph % (Auto) [place] % (Auto) Lymph # [place] # Seg Neutrophils % Seg Neuts % (Manual) Lymphocytes % (Manual) Monocytes % (Manual) Seg Neutrophils # Seg Neutrophils # Man Lymphocytes # (Manual) Monocytes # (Manual) PT INR APTT Heparin Anti-Xa Level POC ABG pH POC ABG pCO2 POC ABG pO2 Sodium 149 H Potassium Chloride 114.6 H Carbon Dioxide BUN 84 H Creatinine 3.1 H Glucose 137 H POC Glucose Lactic Acid Calcium 7.7 L Phosphorus Magnesium Iron TIBC AST ALT Alkaline Phosphatase Lactate Dehydrogenase Total Creatine Kinase C-Reactive Protein Total Protein Albumin Prealbumin CA 19-9 Antigen Folate PTH Intact Urine WBC (Auto) Urine Creatinine Urine Chloride Urine Total Protein Fluid Glucose Fluid Total Protein Vancomycin Trough Miscellaneous Test Flexitest 1 H Crossmatch 06/09/18 06/09/18 06/09/18 10:41 11:56 13:24 WBC RBC 2.43 L Hgb 7.2 L Hct 21.6 L MCV MCHC RDW 16.8 H Plt Count Lymph % (Auto) [place] % (Auto) Lymph # [place] # Seg Neutrophils % Seg Neuts % (Manual) Lymphocytes % (Manual) Monocytes % (Manual) Seg Neutrophils # Seg Neutrophils # Man Lymphocytes # (Manual) Monocytes # (Manual) PT INR APTT Heparin Anti-Xa Level POC ABG pH POC ABG pCO2 POC ABG pO2 Sodium Potassium Chloride Carbon Dioxide BUN Creatinine Glucose POC Glucose 141 H Lactic Acid Calcium Phosphorus Magnesium Iron TIBC AST ALT Alkaline Phosphatase Lactate Dehydrogenase Total Creatine Kinase C-Reactive Protein Total Protein Albumin Prealbumin CA 19-9 Antigen Folate PTH Intact Urine WBC (Auto) Urine Creatinine Urine Chloride Urine Total Protein Fluid Glucose Fluid Total Protein Vancomycin Trough Miscellaneous Test Crossmatch See Detail 06/09/18 06/09/18 06/10/18 18:18 23:13 05:26 WBC RBC Hgb Hct MCV MCHC RDW Plt Count Lymph % (Auto) [place] % (Auto) Lymph # [place] # Seg Neutrophils % Seg Neuts % (Manual) Lymphocytes % (Manual) Monocytes % (Manual) Seg Neutrophils # Seg Neutrophils # Man Lymphocytes # (Manual) Monocytes # (Manual) PT INR APTT Heparin Anti-Xa Level POC ABG pH POC ABG pCO2 POC ABG pO2 Sodium 148 H Potassium Chloride 114.7 H Carbon Dioxide 21 L BUN 79 H Creatinine 3.2 H Glucose 121 H POC Glucose 156 H 163 H Lactic Acid Calcium 7.8 L Phosphorus Magnesium 1.60 L Iron TIBC AST ALT Alkaline Phosphatase Lactate Dehydrogenase Total Creatine Kinase C-Reactive Protein Total Protein Albumin Prealbumin CA 19-9 Antigen Folate PTH Intact Urine WBC (Auto) Urine Creatinine Urine Chloride Urine Total Protein Fluid Glucose Fluid Total Protein Vancomycin Trough Miscellaneous Test Crossmatch 06/10/18 06/10/18 06/10/18 05:26 05:31 17:15 WBC 11.1 H RBC 3.07 L Hgb 9.1 L Hct 27.6 L D MCV MCHC RDW 17.4 H Plt Count Lymph % (Auto) [place] % (Auto) Lymph # [place] # Seg Neutrophils % Seg Neuts % (Manual) Lymphocytes % (Manual) Monocytes % (Manual) Seg Neutrophils # Seg Neutrophils # Man Lymphocytes # (Manual) Monocytes # (Manual) PT INR APTT Heparin Anti-Xa Level POC ABG pH POC ABG pCO2 POC ABG pO2 Sodium Potassium Chloride Carbon Dioxide BUN Creatinine Glucose POC Glucose 128 H Lactic Acid Calcium Phosphorus Magnesium Iron TIBC AST ALT Alkaline Phosphatase Lactate Dehydrogenase Total Creatine Kinase C-Reactive Protein 3.60 H Total Protein Albumin Prealbumin CA 19-9 Antigen Folate PTH Intact Urine WBC (Auto) Urine Creatinine Urine Chloride Urine Total Protein Fluid Glucose Fluid Total Protein Vancomycin Trough Miscellaneous Test Crossmatch 06/11/18 06/11/18 06/11/18 01:13 05:41 05:41 WBC 14.6 H RBC 3.40 L Hgb 9.8 L Hct 30.7 L MCV MCHC RDW 18.1 H Plt Count Lymph % (Auto) [place] % (Auto) Lymph # [place] # Seg Neutrophils % Seg Neuts % (Manual) Lymphocytes % (Manual) Monocytes % (Manual) Seg Neutrophils # Seg Neutrophils # Man Lymphocytes # (Manual) Monocytes # (Manual) PT INR APTT Heparin Anti-Xa Level POC ABG pH POC ABG pCO2 POC ABG pO2 Sodium Potassium Chloride 110.8 H Carbon Dioxide 18 L BUN 77 H Creatinine 3.0 H Glucose 116 H POC Glucose 126 H Lactic Acid Calcium 7.9 L Phosphorus Magnesium Iron TIBC AST ALT Alkaline Phosphatase Lactate Dehydrogenase Total Creatine Kinase C-Reactive Protein Total Protein Albumin Prealbumin CA 19-9 Antigen Folate PTH Intact Urine WBC (Auto) Urine Creatinine Urine Chloride Urine Total Protein Fluid Glucose Fluid Total Protein Vancomycin Trough Miscellaneous Test Crossmatch 06/11/18 06/11/18 06/11/18 06:20 07:41 07:41 WBC RBC Hgb Hct MCV MCHC RDW Plt Count Lymph % (Auto) [place] % (Auto) Lymph # [place] # Seg Neutrophils % Seg Neuts % (Manual) Lymphocytes % (Manual) Monocytes % (Manual) Seg Neutrophils # Seg Neutrophils # Man Lymphocytes # (Manual) Monocytes # (Manual) PT INR APTT Heparin Anti-Xa Level POC ABG pH POC ABG pCO2 POC ABG pO2 Sodium Potassium Chloride Carbon Dioxide BUN Creatinine Glucose POC Glucose 136 H Lactic Acid Calcium Phosphorus Magnesium Iron TIBC AST ALT Alkaline Phosphatase Lactate Dehydrogenase Total Creatine Kinase C-Reactive Protein Total Protein Albumin Prealbumin CA 19-9 Antigen Folate PTH Intact Urine WBC (Auto) 10.0 H Urine Creatinine 41.2 H Urine Chloride 49.2 L Urine Total Protein 142 H Fluid Glucose Fluid Total Protein Vancomycin Trough Miscellaneous Test Crossmatch 06/11/18 06/12/18 06/12/18 18:35 00:34 04:12 WBC RBC 3.18 L Hgb 9.5 L Hct 28.7 L MCV MCHC RDW 18.5 H Plt Count Lymph % (Auto) 8.1 L [place] % (Auto) Lymph # 0.9 L [place] # Seg Neutrophils % 84.6 H Seg Neuts % (Manual) Lymphocytes % (Manual) Monocytes % (Manual) Seg Neutrophils # 9.1 H Seg Neutrophils # Man Lymphocytes # (Manual) Monocytes # (Manual) PT INR APTT Heparin Anti-Xa Level POC ABG pH POC ABG pCO2 POC ABG pO2 Sodium Potassium Chloride Carbon Dioxide BUN Creatinine Glucose POC Glucose 125 H 129 H Lactic Acid Calcium Phosphorus Magnesium Iron TIBC AST ALT Alkaline Phosphatase Lactate Dehydrogenase Total Creatine Kinase C-Reactive Protein Total Protein Albumin Prealbumin CA 19-9 Antigen Folate PTH Intact Urine WBC (Auto) Urine Creatinine Urine Chloride Urine Total Protein Fluid Glucose Fluid Total Protein Vancomycin Trough Miscellaneous Test Crossmatch 06/12/18 06/12/18 06/12/18 04:12 06:30 11:43 WBC RBC Hgb Hct MCV MCHC RDW Plt Count Lymph % (Auto) [place] % (Auto) Lymph # [place] # Seg Neutrophils % Seg Neuts % (Manual) Lymphocytes % (Manual) Monocytes % (Manual) Seg Neutrophils # Seg Neutrophils # Man Lymphocytes # (Manual) Monocytes # (Manual) PT INR APTT Heparin Anti-Xa Level POC ABG pH POC ABG pCO2 POC ABG pO2 Sodium Potassium Chloride 108.5 H Carbon Dioxide 21 L BUN 72 H Creatinine 3.0 H Glucose 122 H POC Glucose 129 H 126 H Lactic Acid Calcium 7.8 L Phosphorus Magnesium Iron TIBC AST 45 H ALT Alkaline Phosphatase 200 H Lactate Dehydrogenase Total Creatine Kinase 34 L C-Reactive Protein Total Protein Albumin 1.7 L Prealbumin CA 19-9 Antigen Folate PTH Intact Urine WBC (Auto) Urine Creatinine Urine Chloride Urine Total Protein Fluid Glucose Fluid Total Protein Vancomycin Trough Miscellaneous Test Crossmatch 06/12/18 06/12/18 06/13/18 16:00 23:56 03:44 WBC RBC Hgb Hct MCV MCHC RDW Plt Count Lymph % (Auto) [place] % (Auto) Lymph # [place] # Seg Neutrophils % Seg Neuts % (Manual) Lymphocytes % (Manual) Monocytes % (Manual) Seg Neutrophils # Seg Neutrophils # Man Lymphocytes # (Manual) Monocytes # (Manual) PT INR APTT Heparin Anti-Xa Level POC ABG pH POC ABG pCO2 POC ABG pO2 Sodium Potassium Chloride Carbon Dioxide BUN Creatinine Glucose POC Glucose 123 H 128 H 121 H Lactic Acid Calcium Phosphorus Magnesium Iron TIBC AST ALT Alkaline Phosphatase Lactate Dehydrogenase Total Creatine Kinase C-Reactive Protein Total Protein Albumin Prealbumin CA 19-9 Antigen Folate PTH Intact Urine WBC (Auto) Urine Creatinine Urine Chloride Urine Total Protein Fluid Glucose Fluid Total Protein Vancomycin Trough Miscellaneous Test Crossmatch 06/13/18 06/13/18 06/14/18 05:59 11:29 01:08 WBC RBC Hgb Hct MCV MCHC RDW Plt Count Lymph % (Auto) [place] % (Auto) Lymph # [place] # Seg Neutrophils % Seg Neuts % (Manual) Lymphocytes % (Manual) Monocytes % (Manual) Seg Neutrophils # Seg Neutrophils # Man Lymphocytes # (Manual) Monocytes # (Manual) PT INR APTT Heparin Anti-Xa Level POC ABG pH POC ABG pCO2 POC ABG pO2 Sodium 134 L Potassium Chloride Carbon Dioxide 20 L BUN 69 H Creatinine 2.9 H Glucose 113 H POC Glucose 124 H 128 H Lactic Acid Calcium 7.8 L Phosphorus Magnesium Iron TIBC AST ALT Alkaline Phosphatase Lactate Dehydrogenase Total Creatine Kinase C-Reactive Protein Total Protein Albumin Prealbumin CA 19-9 Antigen Folate PTH Intact Urine WBC (Auto) Urine Creatinine Urine Chloride Urine Total Protein Fluid Glucose Fluid Total Protein Vancomycin Trough Miscellaneous Test Crossmatch 06/14/18 06/14/18 06/14/18 06:42 06:42 09:50 WBC 11.3 H RBC 3.02 L Hgb 8.8 L Hct 27.3 L MCV MCHC RDW 18.6 H Plt Count Lymph % (Auto) [place] % (Auto) Lymph # [place] # Seg Neutrophils % Seg Neuts % (Manual) Lymphocytes % (Manual) Monocytes % (Manual) Seg Neutrophils # Seg Neutrophils # Man Lymphocytes # (Manual) Monocytes # (Manual) PT 16.3 H INR 1.24 H APTT Heparin Anti-Xa Level POC ABG pH POC ABG pCO2 POC ABG pO2 Sodium 132 L Potassium Chloride Carbon Dioxide 19 L BUN 71 H Creatinine 3.1 H Glucose POC Glucose Lactic Acid Calcium 7.8 L Phosphorus Magnesium Iron TIBC AST ALT Alkaline Phosphatase Lactate Dehydrogenase Total Creatine Kinase C-Reactive Protein Total Protein Albumin Prealbumin CA 19-9 Antigen Folate PTH Intact Urine WBC (Auto) Urine Creatinine Urine Chloride Urine Total Protein Fluid Glucose Fluid Total Protein Vancomycin Trough Miscellaneous Test Crossmatch 06/14/18 06/14/18 06/15/18 12:31 17:04 01:18 WBC RBC Hgb Hct MCV MCHC RDW Plt Count Lymph % (Auto) [place] % (Auto) Lymph # [place] # Seg Neutrophils % Seg Neuts % (Manual) Lymphocytes % (Manual) Monocytes % (Manual) Seg Neutrophils # Seg Neutrophils # Man Lymphocytes # (Manual) Monocytes # (Manual) PT INR APTT Heparin Anti-Xa Level POC ABG pH POC ABG pCO2 POC ABG pO2 Sodium Potassium Chloride Carbon Dioxide BUN Creatinine Glucose POC Glucose 125 H 109 H 124 H Lactic Acid Calcium Phosphorus Magnesium Iron TIBC AST ALT Alkaline Phosphatase Lactate Dehydrogenase Total Creatine Kinase C-Reactive Protein Total Protein Albumin Prealbumin CA 19-9 Antigen Folate PTH Intact Urine WBC (Auto) Urine Creatinine Urine Chloride Urine Total Protein Fluid Glucose Fluid Total Protein Vancomycin Trough Miscellaneous Test Crossmatch 06/15/18 06/15/18 06/15/18 05:27 06:34 11:42 WBC RBC Hgb Hct MCV MCHC RDW Plt Count Lymph % (Auto) [place] % (Auto) Lymph # [place] # Seg Neutrophils % Seg Neuts % (Manual) Lymphocytes % (Manual) Monocytes % (Manual) Seg Neutrophils # Seg Neutrophils # Man Lymphocytes # (Manual) Monocytes # (Manual) PT INR APTT Heparin Anti-Xa Level POC ABG pH POC ABG pCO2 POC ABG pO2 Sodium 134 L Potassium Chloride Carbon Dioxide 17 L BUN 77 H Creatinine 3.2 H Glucose 110 H POC Glucose 116 H 131 H Lactic Acid Calcium 8.1 L Phosphorus 6.20 H D Magnesium Iron TIBC AST ALT Alkaline Phosphatase Lactate Dehydrogenase Total Creatine Kinase C-Reactive Protein Total Protein Albumin Prealbumin CA 19-9 Antigen Folate PTH Intact Urine WBC (Auto) Urine Creatinine Urine Chloride Urine Total Protein Fluid Glucose Fluid Total Protein Vancomycin Trough Miscellaneous Test Crossmatch 06/16/18 06/16/18 06/16/18 00:57 05:10 06:07 WBC RBC Hgb Hct MCV MCHC RDW Plt Count Lymph % (Auto) [place] % (Auto) Lymph # [place] # Seg Neutrophils % Seg Neuts % (Manual) Lymphocytes % (Manual) Monocytes % (Manual) Seg Neutrophils # Seg Neutrophils # Man Lymphocytes # (Manual) Monocytes # (Manual) PT INR APTT Heparin Anti-Xa Level POC ABG pH POC ABG pCO2 POC ABG pO2 Sodium 132 L Potassium Chloride Carbon Dioxide 19 L BUN 83 H Creatinine 3.2 H Glucose 113 H POC Glucose 137 H 109 H Lactic Acid Calcium 7.8 L Phosphorus 6.10 H Magnesium Iron TIBC AST ALT Alkaline Phosphatase Lactate Dehydrogenase Total Creatine Kinase C-Reactive Protein Total Protein Albumin Prealbumin CA 19-9 Antigen Folate PTH Intact Urine WBC (Auto) Urine Creatinine Urine Chloride Urine Total Protein Fluid Glucose Fluid Total Protein Vancomycin Trough Miscellaneous Test Crossmatch 06/16/18 06/16/18 06/17/18 11:51 15:46 00:02 WBC RBC Hgb Hct MCV MCHC RDW Plt Count Lymph % (Auto) [place] % (Auto) Lymph # [place] # Seg Neutrophils % Seg Neuts % (Manual) Lymphocytes % (Manual) Monocytes % (Manual) Seg Neutrophils # Seg Neutrophils # Man Lymphocytes # (Manual) Monocytes # (Manual) PT INR APTT Heparin Anti-Xa Level POC ABG pH POC ABG pCO2 POC ABG pO2 Sodium Potassium Chloride Carbon Dioxide BUN Creatinine Glucose POC Glucose 126 H 127 H 107 H Lactic Acid Calcium Phosphorus Magnesium Iron TIBC AST ALT Alkaline Phosphatase Lactate Dehydrogenase Total Creatine Kinase C-Reactive Protein Total Protein Albumin Prealbumin CA 19-9 Antigen Folate PTH Intact Urine WBC (Auto) Urine Creatinine Urine Chloride Urine Total Protein Fluid Glucose Fluid Total Protein Vancomycin Trough Miscellaneous Test Crossmatch 06/17/18 06/17/18 06/17/18 05:52 11:46 16:58 WBC RBC Hgb Hct MCV MCHC RDW Plt Count Lymph % (Auto) [place] % (Auto) Lymph # [place] # Seg Neutrophils % Seg Neuts % (Manual) Lymphocytes % (Manual) Monocytes % (Manual) Seg Neutrophils # Seg Neutrophils # Man Lymphocytes # (Manual) Monocytes # (Manual) PT INR APTT Heparin Anti-Xa Level POC ABG pH POC ABG pCO2 POC ABG pO2 Sodium 133 L Potassium Chloride Carbon Dioxide 17 L BUN 87 H Creatinine 3.2 H Glucose POC Glucose 129 H 140 H Lactic Acid Calcium 8.1 L Phosphorus 6.50 H Magnesium Iron TIBC AST ALT Alkaline Phosphatase Lactate Dehydrogenase Total Creatine Kinase C-Reactive Protein Total Protein Albumin Prealbumin 0.130 L CA 19-9 Antigen Folate PTH Intact Urine WBC (Auto) Urine Creatinine Urine Chloride Urine Total Protein Fluid Glucose Fluid Total Protein Vancomycin Trough Miscellaneous Test Crossmatch 06/18/18 06/18/18 06/18/18 04:04 04:04 14:15 WBC RBC 3.00 L Hgb 8.9 L Hct 26.5 L MCV MCHC RDW 17.8 H Plt Count 494 H Lymph % (Auto) 7.9 L [place] % (Auto) 9.3 H Lymph # 0.8 L [place] # 1.0 H Seg Neutrophils % 81.2 H Seg Neuts % (Manual) Lymphocytes % (Manual) Monocytes % (Manual) Seg Neutrophils # 8.6 H Seg Neutrophils # Man Lymphocytes # (Manual) Monocytes # (Manual) PT INR APTT Heparin Anti-Xa Level POC ABG pH POC ABG pCO2 POC ABG pO2 Sodium 128 L Potassium Chloride Carbon Dioxide 18 L BUN 88 H Creatinine 3.1 H Glucose 129 H POC Glucose 143 H Lactic Acid Calcium 7.8 L Phosphorus 6.20 H Magnesium Iron TIBC AST ALT Alkaline Phosphatase Lactate Dehydrogenase Total Creatine Kinase C-Reactive Protein Total Protein Albumin Prealbumin CA 19-9 Antigen Folate PTH Intact Urine WBC (Auto) Urine Creatinine Urine Chloride Urine Total Protein Fluid Glucose Fluid Total Protein Vancomycin Trough Miscellaneous Test Crossmatch 06/18/18 06/19/18 06/19/18 17:54 01:45 06:20 WBC RBC Hgb Hct MCV MCHC RDW Plt Count Lymph % (Auto) [place] % (Auto) Lymph # [place] # Seg Neutrophils % Seg Neuts % (Manual) Lymphocytes % (Manual) Monocytes % (Manual) Seg Neutrophils # Seg Neutrophils # Man Lymphocytes # (Manual) Monocytes # (Manual) PT INR APTT Heparin Anti-Xa Level POC ABG pH POC ABG pCO2 POC ABG pO2 Sodium Potassium Chloride 93.9 L Carbon Dioxide BUN 78 H Creatinine 2.8 H Glucose POC Glucose 138 H 141 H Lactic Acid Calcium 7.1 L Phosphorus 6.40 H Magnesium Iron TIBC AST ALT Alkaline Phosphatase Lactate Dehydrogenase Total Creatine Kinase C-Reactive Protein Total Protein Albumin Prealbumin CA 19-9 Antigen Folate PTH Intact Urine WBC (Auto) Urine Creatinine Urine Chloride Urine Total Protein Fluid Glucose Fluid Total Protein Vancomycin Trough Miscellaneous Test Crossmatch 06/19/18 06/19/18 06/19/18 06:49 07:59 16:32 WBC RBC Hgb Hct MCV MCHC RDW Plt Count Lymph % (Auto) [place] % (Auto) Lymph # [place] # Seg Neutrophils % Seg Neuts % (Manual) Lymphocytes % (Manual) Monocytes % (Manual) Seg Neutrophils # Seg Neutrophils # Man Lymphocytes # (Manual) Monocytes # (Manual) PT INR APTT Heparin Anti-Xa Level POC ABG pH POC ABG pCO2 POC ABG pO2 Sodium Potassium Chloride Carbon Dioxide BUN 80 H Creatinine 2.9 H Glucose 123 H POC Glucose 130 H 134 H Lactic Acid Calcium 7.7 L Phosphorus Magnesium Iron TIBC AST ALT Alkaline Phosphatase Lactate Dehydrogenase Total Creatine Kinase C-Reactive Protein Total Protein Albumin Prealbumin CA 19-9 Antigen Folate PTH Intact Urine WBC (Auto) Urine Creatinine Urine Chloride Urine Total Protein Fluid Glucose Fluid Total Protein Vancomycin Trough Miscellaneous Test Crossmatch 06/20/18 06/20/18 06/20/18 00:11 05:55 05:55 WBC RBC 2.73 L Hgb 8.0 L Hct 24.2 L MCV MCHC RDW 17.4 H Plt Count 512 H Lymph % (Auto) 12.3 L [place] % (Auto) 11.3 H Lymph # 1.1 L [place] # 1.0 H Seg Neutrophils % 74.8 H Seg Neuts % (Manual) Lymphocytes % (Manual) Monocytes % (Manual) Seg Neutrophils # Seg Neutrophils # Man Lymphocytes # (Manual) Monocytes # (Manual) PT INR APTT Heparin Anti-Xa Level POC ABG pH POC ABG pCO2 POC ABG pO2 Sodium Potassium Chloride Carbon Dioxide 32 H BUN 70 H Creatinine 2.5 H Glucose 105 H POC Glucose 131 H Lactic Acid Calcium 8.0 L Phosphorus Magnesium Iron TIBC AST ALT Alkaline Phosphatase Lactate Dehydrogenase Total Creatine Kinase C-Reactive Protein Total Protein Albumin Prealbumin CA 19-9 Antigen Folate PTH Intact Urine WBC (Auto) Urine Creatinine Urine Chloride Urine Total Protein Fluid Glucose Fluid Total Protein Vancomycin Trough Miscellaneous Test Crossmatch 06/20/18 06/20/18 06/20/18 05:55 12:10 16:01 WBC RBC Hgb Hct MCV MCHC RDW Plt Count Lymph % (Auto) [place] % (Auto) Lymph # [place] # Seg Neutrophils % Seg Neuts % (Manual) Lymphocytes % (Manual) Monocytes % (Manual) Seg Neutrophils # Seg Neutrophils # Man Lymphocytes # (Manual) Monocytes # (Manual) PT INR APTT Heparin Anti-Xa Level POC ABG pH POC ABG pCO2 POC ABG pO2 Sodium Potassium Chloride Carbon Dioxide BUN Creatinine Glucose POC Glucose 112 H 127 H 145 H Lactic Acid Calcium Phosphorus Magnesium Iron TIBC AST ALT Alkaline Phosphatase Lactate Dehydrogenase Total Creatine Kinase C-Reactive Protein Total Protein Albumin Prealbumin CA 19-9 Antigen Folate PTH Intact Urine WBC (Auto) Urine Creatinine Urine Chloride Urine Total Protein Fluid Glucose Fluid Total Protein Vancomycin Trough Miscellaneous Test Crossmatch 06/20/18 06/21/18 06/21/18 23:54 05:50 05:50 WBC RBC 2.57 L Hgb 7.7 L Hct 26.6 L MCV 104 H MCHC 29 L RDW 19.1 H Plt Count 521 H Lymph % (Auto) 10.0 L [place] % (Auto) 7.4 H Lymph # 1.0 L [place] # Seg Neutrophils % 81.3 H Seg Neuts % (Manual) Lymphocytes % (Manual) Monocytes % (Manual) Seg Neutrophils # 7.9 H Seg Neutrophils # Man Lymphocytes # (Manual) Monocytes # (Manual) PT INR APTT Heparin Anti-Xa Level POC ABG pH POC ABG pCO2 POC ABG pO2 Sodium Potassium 5.8 H D Chloride 90.3 L Carbon Dioxide 37 H BUN 57 H Creatinine 1.9 H Glucose POC Glucose 154 H Lactic Acid Calcium 7.3 L Phosphorus Magnesium Iron TIBC AST 50 H ALT Alkaline Phosphatase 190 H Lactate Dehydrogenase Total Creatine Kinase C-Reactive Protein Total Protein Albumin 1.8 L Prealbumin CA 19-9 Antigen Folate PTH Intact Urine WBC (Auto) Urine Creatinine Urine Chloride Urine Total Protein Fluid Glucose Fluid Total Protein Vancomycin Trough Miscellaneous Test Crossmatch 06/21/18 06/21/18 06/21/18 06:57 13:37 17:00 WBC RBC Hgb Hct MCV MCHC RDW Plt Count Lymph % (Auto) [place] % (Auto) Lymph # [place] # Seg Neutrophils % Seg Neuts % (Manual) Lymphocytes % (Manual) Monocytes % (Manual) Seg Neutrophils # Seg Neutrophils # Man Lymphocytes # (Manual) Monocytes # (Manual) PT INR APTT Heparin Anti-Xa Level POC ABG pH POC ABG pCO2 POC ABG pO2 Sodium Potassium Chloride Carbon Dioxide BUN Creatinine Glucose 111 H POC Glucose 141 H 148 H Lactic Acid Calcium Phosphorus Magnesium Iron TIBC AST ALT Alkaline Phosphatase Lactate Dehydrogenase Total Creatine Kinase C-Reactive Protein Total Protein Albumin Prealbumin CA 19-9 Antigen Folate PTH Intact Urine WBC (Auto) Urine Creatinine Urine Chloride Urine Total Protein Fluid Glucose Fluid Total Protein Vancomycin Trough Miscellaneous Test Crossmatch 06/21/18 06/21/18 06/22/18 17:27 22:01 06:02 WBC RBC Hgb Hct MCV MCHC RDW Plt Count Lymph % (Auto) [place] % (Auto) Lymph # [place] # Seg Neutrophils % Seg Neuts % (Manual) Lymphocytes % (Manual) Monocytes % (Manual) Seg Neutrophils # Seg Neutrophils # Man Lymphocytes # (Manual) Monocytes # (Manual) PT INR APTT Heparin Anti-Xa Level POC ABG pH POC ABG pCO2 POC ABG pO2 Sodium Potassium 3.2 L Chloride Carbon Dioxide 39 H BUN 53 H Creatinine 1.9 H Glucose 1348 H* POC Glucose 130 H 122 H Lactic Acid Calcium 7.5 L Phosphorus Magnesium Iron TIBC AST ALT Alkaline Phosphatase Lactate Dehydrogenase Total Creatine Kinase C-Reactive Protein Total Protein Albumin Prealbumin CA 19-9 Antigen Folate PTH Intact Urine WBC (Auto) Urine Creatinine Urine Chloride Urine Total Protein Fluid Glucose Fluid Total Protein Vancomycin Trough Miscellaneous Test Crossmatch 06/22/18 06/22/18 06/22/18 06:16 07:26 07:48 WBC RBC Hgb Hct MCV MCHC RDW Plt Count Lymph % (Auto) [place] % (Auto) Lymph # [place] # Seg Neutrophils % Seg Neuts % (Manual) Lymphocytes % (Manual) Monocytes % (Manual) Seg Neutrophils # Seg Neutrophils # Man Lymphocytes # (Manual) Monocytes # (Manual) PT INR APTT Heparin Anti-Xa Level POC ABG pH POC ABG pCO2 POC ABG pO2 Sodium Potassium Chloride Carbon Dioxide 37 H BUN 57 H Creatinine 1.9 H Glucose 147 H POC Glucose 148 H 153 H Lactic Acid Calcium 8.3 L Phosphorus Magnesium Iron TIBC AST ALT Alkaline Phosphatase Lactate Dehydrogenase Total Creatine Kinase C-Reactive Protein Total Protein Albumin Prealbumin CA 19-9 Antigen Folate PTH Intact Urine WBC (Auto) Urine Creatinine Urine Chloride Urine Total Protein Fluid Glucose Fluid Total Protein Vancomycin Trough Miscellaneous Test Crossmatch 06/22/18 06/22/18 06/22/18 11:26 16:26 23:57 WBC RBC Hgb Hct MCV MCHC RDW Plt Count Lymph % (Auto) [place] % (Auto) Lymph # [place] # Seg Neutrophils % Seg Neuts % (Manual) Lymphocytes % (Manual) Monocytes % (Manual) Seg Neutrophils # Seg Neutrophils # Man Lymphocytes # (Manual) Monocytes # (Manual) PT INR APTT Heparin Anti-Xa Level POC ABG pH POC ABG pCO2 POC ABG pO2 Sodium Potassium Chloride Carbon Dioxide BUN Creatinine Glucose POC Glucose 121 H 122 H 180 H Lactic Acid Calcium Phosphorus Magnesium Iron TIBC AST ALT Alkaline Phosphatase Lactate Dehydrogenase Total Creatine Kinase C-Reactive Protein Total Protein Albumin Prealbumin CA 19-9 Antigen Folate PTH Intact Urine WBC (Auto) Urine Creatinine Urine Chloride Urine Total Protein Fluid Glucose Fluid Total Protein Vancomycin Trough Miscellaneous Test Crossmatch 06/22/18 06/23/18 06/23/18 23:57 00:30 01:40 WBC RBC Hgb Hct MCV MCHC RDW Plt Count Lymph % (Auto) [place] % (Auto) Lymph # [place] # Seg Neutrophils % Seg Neuts % (Manual) Lymphocytes % (Manual) Monocytes % (Manual) Seg Neutrophils # Seg Neutrophils # Man Lymphocytes # (Manual) Monocytes # (Manual) PT INR APTT Heparin Anti-Xa Level POC ABG pH 7.195 L 7.235 L POC ABG pCO2 105.2 H 95.7 H POC ABG pO2 Sodium Potassium Chloride Carbon Dioxide BUN Creatinine Glucose POC Glucose Lactic Acid Calcium Phosphorus Magnesium Iron TIBC AST ALT Alkaline Phosphatase Lactate Dehydrogenase Total Creatine Kinase C-Reactive Protein Total Protein Albumin Prealbumin CA 19-9 Antigen Folate PTH Intact Urine WBC (Auto) Urine Creatinine 99.7 H Urine Chloride 10.0 L Urine Total Protein 272 H Fluid Glucose Fluid Total Protein Vancomycin Trough Miscellaneous Test Crossmatch 06/23/18 06/23/18 06/23/18 05:58 07:20 08:31 WBC 16.0 H RBC 2.35 L Hgb 6.7 L Hct 22.3 L MCV 95 H MCHC 30 L RDW 18.5 H Plt Count 512 H Lymph % (Auto) [place] % (Auto) Lymph # [place] # Seg Neutrophils % Seg Neuts % (Manual) Lymphocytes % (Manual) Monocytes % (Manual) Seg Neutrophils # Seg Neutrophils # Man Lymphocytes # (Manual) Monocytes # (Manual) PT INR APTT Heparin Anti-Xa Level POC ABG pH POC ABG pCO2 POC ABG pO2 Sodium Potassium Chloride Carbon Dioxide BUN Creatinine Glucose POC Glucose 116 H 123 H Lactic Acid Calcium Phosphorus Magnesium Iron TIBC AST ALT Alkaline Phosphatase Lactate Dehydrogenase Total Creatine Kinase C-Reactive Protein Total Protein Albumin Prealbumin CA 19-9 Antigen Folate PTH Intact Urine WBC (Auto) Urine Creatinine Urine Chloride Urine Total Protein Fluid Glucose Fluid Total Protein Vancomycin Trough Miscellaneous Test Crossmatch 06/23/18 06/23/18 06/23/18 08:31 08:34 08:34 WBC RBC Hgb Hct MCV MCHC RDW Plt Count 485 H Lymph % (Auto) [place] % (Auto) Lymph # [place] # Seg Neutrophils % Seg Neuts % (Manual) Lymphocytes % (Manual) Monocytes % (Manual) Seg Neutrophils # Seg Neutrophils # Man Lymphocytes # (Manual) Monocytes # (Manual) PT 15.2 H INR 1.15 H APTT 41.9 H Heparin Anti-Xa Level POC ABG pH POC ABG pCO2 POC ABG pO2 Sodium 148 H Potassium Chloride Carbon Dioxide BUN 59 H Creatinine 2.2 H Glucose 106 H POC Glucose Lactic Acid Calcium 8.2 L Phosphorus 6.60 H Magnesium Iron TIBC AST 46 H ALT Alkaline Phosphatase 188 H Lactate Dehydrogenase Total Creatine Kinase C-Reactive Protein Total Protein Albumin 1.6 L Prealbumin CA 19-9 Antigen Folate PTH Intact Urine WBC (Auto) Urine Creatinine Urine Chloride Urine Total Protein Fluid Glucose Fluid Total Protein Vancomycin Trough Miscellaneous Test Crossmatch 06/23/18 06/23/18 06/23/18 09:29 09:40 09:43 WBC RBC Hgb Hct MCV MCHC RDW Plt Count Lymph % (Auto) [place] % (Auto) Lymph # [place] # Seg Neutrophils % Seg Neuts % (Manual) Lymphocytes % (Manual) Monocytes % (Manual) Seg Neutrophils # Seg Neutrophils # Man Lymphocytes # (Manual) Monocytes # (Manual) PT INR APTT Heparin Anti-Xa Level POC ABG pH 7.521 H POC ABG pCO2 53.6 H 48.4 H POC ABG pO2 37 L 181 H Sodium Potassium Chloride Carbon Dioxide BUN Creatinine Glucose POC Glucose Lactic Acid Calcium Phosphorus Magnesium Iron TIBC AST ALT Alkaline Phosphatase Lactate Dehydrogenase Total Creatine Kinase C-Reactive Protein Total Protein Albumin Prealbumin CA 19-9 Antigen Folate PTH Intact Urine WBC (Auto) Urine Creatinine Urine Chloride Urine Total Protein Fluid Glucose Fluid Total Protein Vancomycin Trough Miscellaneous Test Crossmatch See Detail 06/23/18 06/23/18 06/23/18 17:03 17:03 18:33 WBC 22.2 H RBC 2.85 L Hgb 8.4 L Hct 25.6 L MCV MCHC RDW 17.6 H Plt Count 515 H Lymph % (Auto) [place] % (Auto) Lymph # [place] # Seg Neutrophils % Seg Neuts % (Manual) Lymphocytes % (Manual) Monocytes % (Manual) Seg Neutrophils # Seg Neutrophils # Man Lymphocytes # (Manual) Monocytes # (Manual) PT INR APTT Heparin Anti-Xa Level 0.13 L POC ABG pH POC ABG pCO2 POC ABG pO2 Sodium Potassium Chloride Carbon Dioxide BUN Creatinine Glucose POC Glucose < 40 L Lactic Acid Calcium Phosphorus Magnesium Iron TIBC AST ALT Alkaline Phosphatase Lactate Dehydrogenase Total Creatine Kinase C-Reactive Protein Total Protein Albumin Prealbumin CA 19-9 Antigen Folate PTH Intact Urine WBC (Auto) Urine Creatinine Urine Chloride Urine Total Protein Fluid Glucose Fluid Total Protein Vancomycin Trough Miscellaneous Test Crossmatch 06/23/18 06/23/18 06/24/18 23:53 Unknown 00:30 WBC RBC Hgb Hct MCV MCHC RDW Plt Count Lymph % (Auto) [place] % (Auto) Lymph # [place] # Seg Neutrophils % Seg Neuts % (Manual) Lymphocytes % (Manual) Monocytes % (Manual) Seg Neutrophils # Seg Neutrophils # Man Lymphocytes # (Manual) Monocytes # (Manual) PT INR APTT Heparin Anti-Xa Level POC ABG pH POC ABG pCO2 POC ABG pO2 Sodium 148 H Potassium Chloride Carbon Dioxide 36 H BUN 57 H Creatinine 1.9 H Glucose POC Glucose 140 H Lactic Acid Calcium 8.3 L Phosphorus Magnesium Iron TIBC AST ALT Alkaline Phosphatase Lactate Dehydrogenase Total Creatine Kinase C-Reactive Protein Total Protein Albumin Prealbumin CA 19-9 Antigen Folate PTH Intact Urine WBC (Auto) 8.0 H Urine Creatinine Urine Chloride Urine Total Protein Fluid Glucose Fluid Total Protein Vancomycin Trough Miscellaneous Test Crossmatch 06/24/18 06/24/18 06/24/18 00:40 04:30 04:30 WBC 26.9 H RBC 2.79 L Hgb 8.1 L Hct 25.0 L MCV MCHC RDW 17.5 H Plt Count 487 H Lymph % (Auto) [place] % (Auto) Lymph # [place] # Seg Neutrophils % Seg Neuts % (Manual) Lymphocytes % (Manual) 6.0 L Monocytes % (Manual) 8.0 H Seg Neutrophils # Seg Neutrophils # Man 16.9 H Lymphocytes # (Manual) Monocytes # (Manual) 2.2 H PT INR APTT Heparin Anti-Xa Level 0.13 L POC ABG pH POC ABG pCO2 POC ABG pO2 Sodium 151 H Potassium Chloride Carbon Dioxide 36 H D BUN 74 H Creatinine 2.9 H Glucose 126 H POC Glucose Lactic Acid Calcium 8.2 L Phosphorus Magnesium Iron TIBC AST ALT Alkaline Phosphatase Lactate Dehydrogenase Total Creatine Kinase C-Reactive Protein Total Protein Albumin Prealbumin CA 19-9 Antigen Folate PTH Intact Urine WBC (Auto) Urine Creatinine Urine Chloride Urine Total Protein Fluid Glucose Fluid Total Protein Vancomycin Trough Miscellaneous Test Crossmatch 06/24/18 06/24/18 06/24/18 04:33 06:41 08:00 WBC RBC Hgb Hct MCV MCHC RDW Plt Count Lymph % (Auto) [place] % (Auto) Lymph # [place] # Seg Neutrophils % Seg Neuts % (Manual) Lymphocytes % (Manual) Monocytes % (Manual) Seg Neutrophils # Seg Neutrophils # Man Lymphocytes # (Manual) Monocytes # (Manual) PT INR APTT Heparin Anti-Xa Level 0.21 L POC ABG pH 7.517 H POC ABG pCO2 50.9 H POC ABG pO2 170 H Sodium Potassium Chloride Carbon Dioxide BUN Creatinine Glucose POC Glucose 140 H Lactic Acid Calcium Phosphorus Magnesium Iron TIBC AST ALT Alkaline Phosphatase Lactate Dehydrogenase Total Creatine Kinase C-Reactive Protein Total Protein Albumin Prealbumin CA 19-9 Antigen Folate PTH Intact Urine WBC (Auto) Urine Creatinine Urine Chloride Urine Total Protein Fluid Glucose Fluid Total Protein Vancomycin Trough Miscellaneous Test Crossmatch 06/24/18 06/24/18 06/24/18 12:27 14:20 18:46 WBC RBC Hgb Hct MCV MCHC RDW Plt Count Lymph % (Auto) [place] % (Auto) Lymph # [place] # Seg Neutrophils % Seg Neuts % (Manual) Lymphocytes % (Manual) Monocytes % (Manual) Seg Neutrophils # Seg Neutrophils # Man Lymphocytes # (Manual) Monocytes # (Manual) PT INR APTT Heparin Anti-Xa Level 0.28 L POC ABG pH POC ABG pCO2 POC ABG pO2 Sodium Potassium Chloride Carbon Dioxide BUN Creatinine Glucose POC Glucose 216 H 182 H Lactic Acid Calcium Phosphorus Magnesium Iron TIBC AST ALT Alkaline Phosphatase Lactate Dehydrogenase Total Creatine Kinase C-Reactive Protein Total Protein Albumin Prealbumin CA 19-9 Antigen Folate PTH Intact Urine WBC (Auto) Urine Creatinine Urine Chloride Urine Total Protein Fluid Glucose Fluid Total Protein Vancomycin Trough Miscellaneous Test Crossmatch 06/24/18 06/25/18 06/25/18 23:43 04:29 04:37 WBC RBC Hgb 8.1 L Hct 25.6 L MCV MCHC RDW Plt Count Lymph % (Auto) [place] % (Auto) Lymph # [place] # Seg Neutrophils % Seg Neuts % (Manual) Lymphocytes % (Manual) Monocytes % (Manual) Seg Neutrophils # Seg Neutrophils # Man Lymphocytes # (Manual) Monocytes # (Manual) PT INR APTT Heparin Anti-Xa Level POC ABG pH 7.534 H POC ABG pCO2 POC ABG pO2 161 H Sodium Potassium Chloride Carbon Dioxide BUN Creatinine Glucose POC Glucose 217 H Lactic Acid Calcium Phosphorus Magnesium Iron TIBC AST ALT Alkaline Phosphatase Lactate Dehydrogenase Total Creatine Kinase C-Reactive Protein Total Protein Albumin Prealbumin CA 19-9 Antigen Folate PTH Intact Urine WBC (Auto) Urine Creatinine Urine Chloride Urine Total Protein Fluid Glucose Fluid Total Protein Vancomycin Trough Miscellaneous Test Crossmatch 06/25/18 06/25/18 06/25/18 04:37 05:48 12:11 WBC RBC Hgb Hct MCV MCHC RDW Plt Count Lymph % (Auto) [place] % (Auto) Lymph # [place] # Seg Neutrophils % Seg Neuts % (Manual) Lymphocytes % (Manual) Monocytes % (Manual) Seg Neutrophils # Seg Neutrophils # Man Lymphocytes # (Manual) Monocytes # (Manual) PT INR APTT Heparin Anti-Xa Level POC ABG pH POC ABG pCO2 POC ABG pO2 Sodium Potassium 2.6 L* D Chloride Carbon Dioxide 32 H BUN 75 H Creatinine 3.1 H Glucose 244 H POC Glucose 225 H 252 H Lactic Acid Calcium Phosphorus Magnesium Iron TIBC AST ALT Alkaline Phosphatase Lactate Dehydrogenase Total Creatine Kinase C-Reactive Protein Total Protein Albumin Prealbumin CA 19-9 Antigen Folate PTH Intact Urine WBC (Auto) Urine Creatinine Urine Chloride Urine Total Protein Fluid Glucose Fluid Total Protein Vancomycin Trough Miscellaneous Test Crossmatch 06/25/18 06/25/18 06/25/18 15:58 18:12 20:30 WBC RBC Hgb 8.5 L Hct 27.6 L MCV MCHC RDW Plt Count Lymph % (Auto) [place] % (Auto) Lymph # [place] # Seg Neutrophils % Seg Neuts % (Manual) Lymphocytes % (Manual) Monocytes % (Manual) Seg Neutrophils # Seg Neutrophils # Man Lymphocytes # (Manual) Monocytes # (Manual) PT INR APTT Heparin Anti-Xa Level POC ABG pH POC ABG pCO2 POC ABG pO2 Sodium 148 H Potassium 2.4 L* Chloride Carbon Dioxide 31 H BUN 79 H Creatinine 3.0 H Glucose 152 H POC Glucose 199 H Lactic Acid Calcium 8.3 L Phosphorus Magnesium Iron TIBC AST ALT Alkaline Phosphatase Lactate Dehydrogenase Total Creatine Kinase C-Reactive Protein Total Protein Albumin Prealbumin CA 19-9 Antigen Folate PTH Intact Urine WBC (Auto) Urine Creatinine Urine Chloride Urine Total Protein Fluid Glucose Fluid Total Protein Vancomycin Trough Miscellaneous Test Crossmatch 06/26/18 06/26/18 06/26/18 04:00 04:00 04:00 WBC 26.2 H RBC 3.16 L Hgb 9.1 L Hct 28.8 L MCV MCHC RDW 18.2 H Plt Count Lymph % (Auto) [place] % (Auto) Lymph # [place] # Seg Neutrophils % Seg Neuts % (Manual) Lymphocytes % (Manual) 2.0 L Monocytes % (Manual) Seg Neutrophils # Seg Neutrophils # Man 11.5 H Lymphocytes # (Manual) 0.5 L Monocytes # (Manual) PT INR APTT Heparin Anti-Xa Level POC ABG pH POC ABG pCO2 POC ABG pO2 Sodium 146 H Potassium 3.2 L D 3.3 L Chloride 109.0 H 108.2 H Carbon Dioxide BUN 74 H 75 H Creatinine 2.9 H 2.9 H Glucose 62 L 60 L POC Glucose Lactic Acid Calcium 7.7 L 7.9 L Phosphorus Magnesium 1.60 L Iron TIBC AST ALT Alkaline Phosphatase 173 H Lactate Dehydrogenase Total Creatine Kinase C-Reactive Protein Total Protein 6.1 L Albumin 1.4 L Prealbumin CA 19-9 Antigen Folate PTH Intact Urine WBC (Auto) Urine Creatinine Urine Chloride Urine Total Protein Fluid Glucose Fluid Total Protein Vancomycin Trough Miscellaneous Test Crossmatch 06/26/18 06/26/18 06/26/18 05:57 05:59 06:22 WBC RBC Hgb Hct MCV MCHC RDW Plt Count Lymph % (Auto) [place] % (Auto) Lymph # [place] # Seg Neutrophils % Seg Neuts % (Manual) Lymphocytes % (Manual) Monocytes % (Manual) Seg Neutrophils # Seg Neutrophils # Man Lymphocytes # (Manual) Monocytes # (Manual) PT INR APTT Heparin Anti-Xa Level POC ABG pH 7.269 L POC ABG pCO2 68.0 H POC ABG pO2 73 L Sodium Potassium Chloride Carbon Dioxide BUN Creatinine Glucose POC Glucose 59 L 130 H Lactic Acid Calcium Phosphorus Magnesium Iron TIBC AST ALT Alkaline Phosphatase Lactate Dehydrogenase Total Creatine Kinase C-Reactive Protein Total Protein Albumin Prealbumin CA 19-9 Antigen Folate PTH Intact Urine WBC (Auto) Urine Creatinine Urine Chloride Urine Total Protein Fluid Glucose Fluid Total Protein Vancomycin Trough Miscellaneous Test Crossmatch 06/27/18 06/27/18 06/27/18 03:34 05:20 05:20 WBC RBC Hgb 6.7 L Hct 21.2 L D MCV MCHC RDW Plt Count Lymph % (Auto) [place] % (Auto) Lymph # [place] # Seg Neutrophils % Seg Neuts % (Manual) Lymphocytes % (Manual) Monocytes % (Manual) Seg Neutrophils # Seg Neutrophils # Man Lymphocytes # (Manual) Monocytes # (Manual) PT INR APTT Heparin Anti-Xa Level POC ABG pH 7.251 L POC ABG pCO2 63.7 H POC ABG pO2 157 H Sodium Potassium 5.9 H D Chloride Carbon Dioxide BUN 87 H Creatinine 4.4 H D Glucose 128 H POC Glucose Lactic Acid Calcium 8.1 L Phosphorus Magnesium Iron TIBC AST ALT Alkaline Phosphatase Lactate Dehydrogenase Total Creatine Kinase C-Reactive Protein Total Protein Albumin Prealbumin CA 19-9 Antigen Folate PTH Intact Urine WBC (Auto) Urine Creatinine Urine Chloride Urine Total Protein Fluid Glucose Fluid Total Protein Vancomycin Trough Miscellaneous Test Crossmatch 06/27/18 06/27/18 06/27/18 09:05 10:56 10:56 WBC RBC Hgb 6.9 L Hct 21.6 L MCV MCHC RDW Plt Count Lymph % (Auto) [place] % (Auto) Lymph # [place] # Seg Neutrophils % Seg Neuts % (Manual) Lymphocytes % (Manual) Monocytes % (Manual) Seg Neutrophils # Seg Neutrophils # Man Lymphocytes # (Manual) Monocytes # (Manual) PT INR APTT Heparin Anti-Xa Level POC ABG pH POC ABG pCO2 POC ABG pO2 Sodium Potassium 5.7 H Chloride Carbon Dioxide BUN Creatinine Glucose POC Glucose Lactic Acid Calcium Phosphorus Magnesium Iron TIBC AST ALT Alkaline Phosphatase Lactate Dehydrogenase Total Creatine Kinase C-Reactive Protein Total Protein Albumin Prealbumin CA 19-9 Antigen Folate PTH Intact Urine WBC (Auto) Urine Creatinine Urine Chloride Urine Total Protein Fluid Glucose Fluid Total Protein Vancomycin Trough Miscellaneous Test Crossmatch See Detail 06/27/18 06/27/18 06/27/18 10:56 12:07 17:33 WBC 25.2 H RBC 2.37 L Hgb 6.7 L Hct 21.6 L MCV MCHC 31 L RDW 18.0 H Plt Count Lymph % (Auto) [place] % (Auto) Lymph # [place] # Seg Neutrophils % Seg Neuts % (Manual) 97.0 H Lymphocytes % (Manual) 1.0 L Monocytes % (Manual) Seg Neutrophils # Seg Neutrophils # Man 24.4 H Lymphocytes # (Manual) 0.3 L Monocytes # (Manual) PT INR APTT Heparin Anti-Xa Level POC ABG pH POC ABG pCO2 POC ABG pO2 Sodium Potassium Chloride Carbon Dioxide BUN Creatinine Glucose POC Glucose 156 H 123 H Lactic Acid Calcium Phosphorus Magnesium Iron TIBC AST ALT Alkaline Phosphatase Lactate Dehydrogenase Total Creatine Kinase C-Reactive Protein Total Protein Albumin Prealbumin CA 19-9 Antigen Folate PTH Intact Urine WBC (Auto) Urine Creatinine Urine Chloride Urine Total Protein Fluid Glucose Fluid Total Protein Vancomycin Trough Miscellaneous Test Crossmatch 06/28/18 06/28/18 06/28/18 00:40 04:54 05:52 WBC RBC Hgb Hct MCV MCHC RDW Plt Count Lymph % (Auto) [place] % (Auto) Lymph # [place] # Seg Neutrophils % Seg Neuts % (Manual) Lymphocytes % (Manual) Monocytes % (Manual) Seg Neutrophils # Seg Neutrophils # Man Lymphocytes # (Manual) Monocytes # (Manual) PT INR APTT Heparin Anti-Xa Level POC ABG pH POC ABG pCO2 POC ABG pO2 Sodium Potassium Chloride Carbon Dioxide BUN 57 H Creatinine 3.3 H Glucose 107 H POC Glucose 127 H 117 H Lactic Acid Calcium Phosphorus Magnesium Iron TIBC AST ALT Alkaline Phosphatase Lactate Dehydrogenase Total Creatine Kinase C-Reactive Protein Total Protein Albumin Prealbumin CA 19-9 Antigen Folate PTH Intact Urine WBC (Auto) Urine Creatinine Urine Chloride Urine Total Protein Fluid Glucose Fluid Total Protein Vancomycin Trough Miscellaneous Test Crossmatch 06/28/18 09:24 WBC 21.3 H RBC 2.61 L Hgb 7.5 L Hct 23.0 L MCV MCHC RDW 17.5 H Plt Count Lymph % (Auto) [place] % (Auto) Lymph # [place] # Seg Neutrophils % Seg Neuts % (Manual) Lymphocytes % (Manual) Monocytes % (Manual) Seg Neutrophils # Seg Neutrophils # Man Lymphocytes # (Manual) Monocytes # (Manual) PT INR APTT Heparin Anti-Xa Level POC ABG pH POC ABG pCO2 POC ABG pO2 Sodium Potassium Chloride Carbon Dioxide BUN Creatinine Glucose POC Glucose Lactic Acid Calcium Phosphorus Magnesium Iron TIBC AST ALT Alkaline Phosphatase Lactate Dehydrogenase Total Creatine Kinase C-Reactive Protein Total Protein Albumin Prealbumin CA 19-9 Antigen Folate PTH Intact Urine WBC (Auto) Urine Creatinine Urine Chloride Urine Total Protein Fluid Glucose Fluid Total Protein Vancomycin Trough Miscellaneous Test Crossmatch
--- NOTE | 2018-06-28 17:42 | Progress Note ---
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 Ye and she discussed with patient's sister on 06/24/18 patient unresponsive, post prolonged cardiorespiratory arrest Consulted Dr. Melendrez, Neurology. He evaluated patient and also discussed with sister on 06/25/18 Cerebral blood flow study showed minimal flow and EEG showed no brain activity Updated sister st bedside /s/p cardiorespiratory arrest. Cannot r/o aspiration event to worsen respiratory status leading to cardiorespiratory arrest rowdy initiated on heparin drip for possible PE as he had DVT right lower ext but was not on anticoagulation because of nephrostomy tubes, major abdominal surgery. 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 -Differentiated carcinoma with squamous differentiation on pathology but unsure of exact primary /Bilateral pneumonia (possibly aspiration) -Monitor respiratory status, Continue Nebs PRN /Bilateral moderate pleural effusion, on vent now /Cardiogenic shock Patient was hypotensive post cardio-respiratory arrest. He was started on Levophed as needed for BP control /Sepsis, was on Antibiotics, completed /Acute kidney injury (obstructive uropathy vs contrast nephropathy) -started back on hemodialysis temporarily. -Continue to monitor BMP and kidney fuction -Had bilateral nephrostomy tubes placed 05/14/[address] Freeman. /Hyperkalemia, resolved /Anemia, s/p 6 units of PRBC transfusion /Acute deep venous thrombosis, off heparin for low h/h /Bowel obstruction s/p surgery -Etiology secondary to extrinsic compression from mass, Continue TPN /Moderate to severe protein calorie malnutrition, on TPN Disposition: Plan was for him to go to LTAC prior to cardioresp arrest. Very Poor prognosis with prolonged cardiorespiratory arrest. Discussed with sister, Vibha Dinh in details.. Brief History: 53 y/o male admitted with c/o abd pain and urinary retention. CT abdomen showed Large pelvic mass causing urinary obstruction. bilateral nephrostomy tubes placed by IR. Repeat CT showed dilated small bowel with SBO, possibly from extrinsic compression from pelvic mass. He is s/p exploratory laparotomy and colostomy placed on 05/26/18. He required HD intermittently. he was planned to go for LTAC. On 06/23/18 he developed cardiac arrest and required intubation. He was transferred to ICU. He was evaluated by cerebral blood flow and EEG study. Clinically appears as severe anoxic brain injury/brain . Updated sister at bedside. waiting for neurology to further examine the pt clinically to confirm brain . Hospitalist Physical GEN:on vent HEENT: Normocephalic, atraumatic, fixed dilated pupil Neck: No JVD Lungs:Clear to auscultation bilaterally, no crackles, no wheeze Heart:S1 and S2 +ve, no murmurs, rubs or gallop Abd:soft, mild tender, bilateral nephrostomy tubes draining, colostomy bag Ext: Bilateral lower ext edema, cold Neuro: unresponsive Subjective Date of service: 06/28/18 Principal diagnosis: anemia, sq cell ca Interval history: Pt seen and examined On Vent, On TPN discussed with sister at bedside Objective - Constitutional Vitals: Vital Signs - 12hr 06/28/18 06/28/18 06/28/18 05:45 05:55 06:00 Temperature Pulse Rate 92 H 91 H 90 Pulse Rate [ Apical] Pulse Rate [ Left Radial] Pulse Rate [ Right Dorsalis Pedis] Pulse Rate [ Right Radial] Respiratory 25 H 38 H Rate Blood Pressure 139/93 139/93 129/83 O2 Sat by Pulse 100 99 Oximetry 06/28/18 06/28/18 06/28/18 06:15 06:30 06:45 Temperature Pulse Rate 90 105 H 90 Pulse Rate [ Apical] Pulse Rate [ Left Radial] Pulse Rate [ Right Dorsalis Pedis] Pulse Rate [ Right Radial] Respiratory 17 30 H 27 H Rate Blood Pressure 132/85 128/84 129/86 O2 Sat by Pulse 99 99 99 Oximetry 06/28/18 06/28/18 06/28/18 07:00 07:13 07:15 Temperature Pulse Rate 90 90 90 Pulse Rate [ Apical] Pulse Rate [ Left Radial] Pulse Rate [ Right Dorsalis Pedis] Pulse Rate [ Right Radial] Respiratory 16 19 Rate Blood Pressure 129/86 129/86 134/91 O2 Sat by Pulse 99 99 99 Oximetry 06/28/18 06/28/18 06/28/18 07:30 07:45 08:00 Temperature 97.7 F Pulse Rate 91 H 87 90 Pulse Rate [ 75 Apical] Pulse Rate [ 72 Left Radial] Pulse Rate [ 75 Right Dorsalis Pedis] Pulse Rate [ 72 Right Radial] Respiratory 25 H 17 29 H Rate Blood Pressure 136/89 122/80 128/85 O2 Sat by Pulse 99 99 99 Oximetry 06/28/18 06/28/18 06/28/18 08:15 08:30 08:45 Temperature Pulse Rate 90 88 93 H Pulse Rate [ Apical] Pulse Rate [ Left Radial] Pulse Rate [ Right Dorsalis Pedis] Pulse Rate [ Right Radial] Respiratory 19 22 26 H Rate Blood Pressure 131/84 121/81 128/85 O2 Sat by Pulse 100 100 99 Oximetry 06/28/18 06/28/18 06/28/18 09:00 09:15 09:30 Temperature Pulse Rate 92 H 91 H 92 H Pulse Rate [ Apical] Pulse Rate [ Left Radial] Pulse Rate [ Right Dorsalis Pedis] Pulse Rate [ Right Radial] Respiratory 24 30 H 30 H Rate Blood Pressure 140/91 134/88 136/91 O2 Sat by Pulse 100 100 100 Oximetry 06/28/18 06/28/18 06/28/18 09:45 10:00 10:15 Temperature Pulse Rate 91 H 88 92 H Pulse Rate [ Apical] Pulse Rate [ Left Radial] Pulse Rate [ Right Dorsalis Pedis] Pulse Rate [ Right Radial] Respiratory 30 H 30 H 30 H Rate Blood Pressure 133/89 136/90 141/94 O2 Sat by Pulse 100 100 100 Oximetry 06/28/18 06/28/18 06/28/18 10:30 10:45 11:00 Temperature Pulse Rate 91 H 91 H 91 H Pulse Rate [ Apical] Pulse Rate [ Left Radial] Pulse Rate [ Right Dorsalis Pedis] Pulse Rate [ Right Radial] Respiratory 30 H 30 H 30 H Rate Blood Pressure 140/93 141/92 141/91 O2 Sat by Pulse 100 100 100 Oximetry 06/28/18 06/28/18 06/28/18 11:15 11:30 11:45 Temperature Pulse Rate 91 H 91 H 91 H Pulse Rate [ Apical] Pulse Rate [ Left Radial] Pulse Rate [ Right Dorsalis Pedis] Pulse Rate [ Right Radial] Respiratory 30 H 30 H 30 H Rate Blood Pressure 141/94 139/92 142/94 O2 Sat by Pulse 100 100 100 Oximetry 06/28/18 06/28/18 06/28/18 12:00 12:15 12:30 Temperature 97.9 F Pulse Rate 91 H 88 87 Pulse Rate [ Apical] Pulse Rate [ Left Radial] Pulse Rate [ Right Dorsalis Pedis] Pulse Rate [ Right Radial] Respiratory 30 H 30 H 30 H Rate Blood Pressure 136/91 140/91 135/88 O2 Sat by Pulse 100 100 99 Oximetry 06/28/18 06/28/18 06/28/18 12:45 13:00 13:15 Temperature Pulse Rate 87 87 88 Pulse Rate [ Apical] Pulse Rate [ Left Radial] Pulse Rate [ Right Dorsalis Pedis] Pulse Rate [ Right Radial] Respiratory 30 H 30 H 30 H Rate Blood Pressure 137/90 131/85 136/92 O2 Sat by Pulse 99 99 99 Oximetry 06/28/18 06/28/18 06/28/18 13:30 13:45 14:00 Temperature Pulse Rate 87 88 89 Pulse Rate [ Apical] Pulse Rate [ Left Radial] Pulse Rate [ Right Dorsalis Pedis] Pulse Rate [ Right Radial] Respiratory 30 H 30 H 30 H Rate Blood Pressure 132/88 132/90 140/92 O2 Sat by Pulse 99 99 99 Oximetry 06/28/18 06/28/18 06/28/18 14:15 14:30 14:45 Temperature Pulse Rate 89 88 88 Pulse Rate [ Apical] Pulse Rate [ Left Radial] Pulse Rate [ Right Dorsalis Pedis] Pulse Rate [ Right Radial] Respiratory 30 H 30 H 30 H Rate Blood Pressure 137/91 134/90 136/89 O2 Sat by Pulse 99 99 99 Oximetry 06/28/18 06/28/18 15:00 15:33 Temperature Pulse Rate 89 87 Pulse Rate [ Apical] Pulse Rate [ Left Radial] Pulse Rate [ Right Dorsalis Pedis] Pulse Rate [ Right Radial] Respiratory 30 H Rate Blood Pressure 136/90 134/90 O2 Sat by Pulse 99 99 Oximetry - Labs CBC & Chem 7: 06/29/18 04:18 06/29/18 04:18 Labs: Abnormal lab results 06/27/18 06/28/18 06/28/18 Range/Units 10:56 00:40 04:54 WBC (4.5-11.0) K/mm3 RBC (3.65-5.03) M/mm3 Hgb (11.8-15.2) gm/dl Hct (35.5-45.6) % RDW (13.2-15.2) % BUN 57 H (9-20) mg/dL Creatinine 3.3 H (0.8-1.5) mg/dL Glucose 107 H (75-100) mg/dL POC Glucose 127 H (70-105) Crossmatch See Detail 06/28/18 06/28/18 Range/Units 05:52 09:24 WBC 21.3 H (4.5-11.0) K/mm3 RBC 2.61 L (3.65-5.03) M/mm3 Hgb 7.5 L (11.8-15.2) gm/dl Hct 23.0 L (35.5-45.6) % RDW 17.5 H (13.2-15.2) % BUN (9-20) mg/dL Creatinine (0.8-1.5) mg/dL Glucose (75-100) mg/dL POC Glucose 117 H (70-105) Crossmatch
[2018-06-28] MEDS ORDERED: TPN ADULT 2,016 ML IV SCH (20:00)
[2018-06-29] MEDS: HumuLIN R SUB-Q SCH ×4 (00:51→18:15)
[2018-06-29] MEDS: LOPRESSOR IV SCH ×4 (00:53→18:14)
--- NOTE | 2018-06-29 02:43 | XRay Report ---
FINAL REPORT EXAM: XR CHEST 1V AP HISTORY: follow up respiratory failure COMPARISON: June 28, 2018. FINDINGS: Frontal view(s) of the chest obtained. Stable mild cardiac enlargement. ETT is present. Distal tip approximately 7 centimeters from the patience in satisfactory position. Right PICC line is present. Distal tip projects over the compliance of the innominate veins. Distal tip of feeding tube projects over the mid stomach. Hazy opacities mid to lower lungs with small to moderate left and small right-sided pleural effusions. There is a linear opacity lateral margin of the left midlung. This may reflect area of scarring or calcification. No definite pneumothorax. IMPRESSION: Hazy opacities mid to lower lungs with small to moderate left and small right-sided pleural effusions slightly improved from prior study. Lines and tubes are in gross satisfactory position.
[2018-06-29 05:04] LABS: Hematocrit 23.1 % (35.5-45.6); Hemoglobin 7.6 gm/dl (11.8-15.2)
[2018-06-29 05:16] LABS: Calcium 8.6 mg/dL (8.4-10.2)
--- NOTE | 2018-06-29 08:44 | Progress Note ---
Assessment and Plan 1. Acute kidney injury: Initial MARYLOU in the setting of bilateral hydronephrosis secondary to pelvic mass , now s/p bilateral nephrostomy. Recurrent Acute kidney injury likely ATN. Patient was restarted on hemodialysis 2 days ago due to hyperkalemia. Hemodialysis today. Monitor renal function and [employer] needs. 2. Electrolytes: Hyperkalemia, improved. Monitor lytes. 3. Hypotension: Off pressors. 4. Bowel obstruction: S/p colostomy. 5. Bilateral hydronephrosis: Secondary to pelvic mass. S/p bilateral nephrostomy. 6. Respiratory failure: On vent. 7. S/p Cardiac arrest. 8. Anemia. 9. 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 Subjective Date of service: 06/29/18 Principal diagnosis: anemia, sq cell ca Interval history: Patient was seen and examined at the bedside. Objective - Vital Signs Vital signs: Vital Signs - 12hr 06/28/18 06/28/18 06/28/18 20:45 21:00 21:30 Temperature Pulse Rate 84 85 85 Pulse Rate [ From Monitor] Respiratory 30 H 30 H 30 H Rate Blood Pressure 98/66 107/71 108/72 O2 Sat by Pulse 95 95 96 Oximetry 06/28/18 06/28/18 06/28/18 22:00 22:30 23:00 Temperature Pulse Rate 84 83 86 Pulse Rate [ From Monitor] Respiratory 30 H 26 H 26 H Rate Blood Pressure 104/69 101/71 108/76 O2 Sat by Pulse 96 97 97 Oximetry 06/28/18 06/28/18 06/28/18 23:18 23:30 23:38 Temperature Pulse Rate 85 84 84 Pulse Rate [ From Monitor] Respiratory 22 24 Rate Blood Pressure 103/69 106/70 106/70 O2 Sat by Pulse 97 97 97 Oximetry 06/29/18 06/29/18 06/29/18 00:00 00:30 00:53 Temperature 98.1 F Pulse Rate 83 85 86 Pulse Rate [ 83 From Monitor] Respiratory 30 H 30 H Rate Blood Pressure 112/76 87/57 93/60 O2 Sat by Pulse 95 95 Oximetry 06/29/18 06/29/18 06/29/18 01:00 01:30 02:00 Temperature Pulse Rate 80 84 86 Pulse Rate [ From Monitor] Respiratory 21 30 H 30 H Rate Blood Pressure 88/56 97/65 99/64 O2 Sat by Pulse 95 96 97 Oximetry 06/29/18 06/29/18 06/29/18 02:30 03:00 03:30 Temperature Pulse Rate 83 84 84 Pulse Rate [ From Monitor] Respiratory 22 22 22 Rate Blood Pressure 93/60 98/63 97/65 O2 Sat by Pulse 96 96 97 Oximetry 06/29/18 06/29/18 06/29/18 04:00 04:30 05:00 Temperature 97 F L Pulse Rate 82 84 84 Pulse Rate [ 80 From Monitor] Respiratory 16 30 H 30 H Rate Blood Pressure 93/59 106/71 97/63 O2 Sat by Pulse 96 96 99 Oximetry 06/29/18 06/29/18 06/29/18 05:30 05:58 06:00 Temperature Pulse Rate 83 79 79 Pulse Rate [ From Monitor] Respiratory 30 H 30 H Rate Blood Pressure 100/66 102/67 102/68 O2 Sat by Pulse 100 99 Oximetry 06/29/18 06/29/18 06/29/18 06:30 07:00 07:38 Temperature Pulse Rate 79 78 78 Pulse Rate [ From Monitor] Respiratory 30 H 30 H Rate Blood Pressure 107/74 107/72 134/93 O2 Sat by Pulse 99 99 99 Oximetry - General Appearance General appearance: well-developed, appears stated age, intubated, other (on vent, left groin dialysis catheter) EENT: ATNC Neck: supple Respiratory: Present: Clear to Ascultation Cardiology: regular, S1S2, no murmurs Gastrointestinal: no tenderness, other (ostomy and bilateral nephrostomy noted) Neurologic: obtunded, other (pupils are not reacting) Musculoskeletal: other (no edema) - Lab 06/29/18 04:18 06/29/18 04:18 Most recent lab results Calcium 8.6 mg/dL (8.4-10.2) 06/29/18 04:18 Phosphorus 5.10 mg/dL (2.5-4.5) H D 06/29/18 04:18 Magnesium 2.10 mg/dL (1.7-2.3) 06/29/18 04:18 Urine Creatinine 99.7 mg/dL (0.1-20.0) H 06/23/18 00:30 Urine Sodium Not Reportable 06/23/18 00:30 Urine Total Protein 272 mg/dL (5-11.8) H 06/23/18 00:30
[2018-06-29] MEDS ORDERED: NACL 0.9% 100 ML IV PRN (09:33)
[2018-06-29] MEDS: FERROUS SULFATE PO SCH (10:02)
[2018-06-29] MEDS: FOLVITE PO SCH (10:02)
[2018-06-29] MEDS ORDERED: SIMPLE SYRUP FEEDTUBE PRN ×2 (11:55)
[2018-06-29] MEDS ORDERED: PANCREAZE DR 10,500 UNIT FEEDTUBE PRN (11:55)
[2018-06-29] MEDS ORDERED: SODIUM BICARBONATE FEEDTUBE PRN (11:55)
--- NOTE | 2018-06-29 11:59 | Progress Note ---
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 Hypertensive urgency, Sinus tachycardia with HR 160s CTA negative for PE Hyperkalemia Hypernatrmia Metabolic acidosis Acute blood loss anemia Moderate to severe protein calorie malnutrition -VAP bundle addressed -Neurology consult notes reviewed, discussed extensively with Neurology re brain determination. EEG shows no activity. Minimal cranial flow. Discussed with hospitalist service -Prognosis is poor - continue bronchodilators with pulmonary hygiene per RT - HD/UF for toxin and volume clearance, hold for now - continue anti-infective's per ID recs - continue TPN for nutritional support - s/p surgery 05/26 (had ex-lap; matted abdominal organs, pus - Enterostomy tube decompression,loop colostomy and large triple lumen sump drainage of pelvis) - s/p bilateral nephrostomy tubes placed 05/14/[address] Freeman.(CTA negative for P.E.) - continue other care per attending / other consultants Full code status per sister and family Subjective Date of service: 06/29/18 Principal diagnosis: anemia, sq cell ca Interval history: Patient is seen today for: Acute hypoxic-hypercapnic respiratory failure, s/p cardiopulmonary arrest Seen and examined at bedside; 24-hour events reviewed; nursing and respiratory care staff consulted; Discussed in ICU-IDT rounds Remains unresponsive Brain flow studies, showed marked decreased intra-cranial blood flow, flow overlying the cerebral hemispheres on nuclear medicine study No fevers overnight. EEG no activity. Objective Vital Signs - 12hr 06/29/18 06/29/18 06/29/18 00:00 00:30 00:53 Temperature 98.1 F Pulse Rate 83 85 86 Pulse Rate [ 83 From Monitor] Pulse Rate [ Left Dorsalis Pedis] Respiratory 30 H 30 H Rate Blood Pressure 112/76 87/57 93/60 O2 Sat by Pulse 95 95 Oximetry 06/29/18 06/29/18 06/29/18 01:00 01:30 02:00 Temperature Pulse Rate 80 84 86 Pulse Rate [ From Monitor] Pulse Rate [ Left Dorsalis Pedis] Respiratory 21 30 H 30 H Rate Blood Pressure 88/56 97/65 99/64 O2 Sat by Pulse 95 96 97 Oximetry 06/29/18 06/29/18 06/29/18 02:30 03:00 03:30 Temperature Pulse Rate 83 84 84 Pulse Rate [ From Monitor] Pulse Rate [ Left Dorsalis Pedis] Respiratory 22 22 22 Rate Blood Pressure 93/60 98/63 97/65 O2 Sat by Pulse 96 96 97 Oximetry 06/29/18 06/29/18 06/29/18 04:00 04:30 05:00 Temperature 97 F L Pulse Rate 82 84 84 Pulse Rate [ 80 From Monitor] Pulse Rate [ Left Dorsalis Pedis] Respiratory 16 30 H 30 H Rate Blood Pressure 93/59 106/71 97/63 O2 Sat by Pulse 96 96 99 Oximetry 06/29/18 06/29/18 06/29/18 05:30 05:58 06:00 Temperature Pulse Rate 83 79 79 Pulse Rate [ From Monitor] Pulse Rate [ Left Dorsalis Pedis] Respiratory 30 H 30 H Rate Blood Pressure 100/66 102/67 102/68 O2 Sat by Pulse 100 99 Oximetry 06/29/18 06/29/18 06/29/18 06:30 07:00 07:30 Temperature Pulse Rate 79 78 82 Pulse Rate [ From Monitor] Pulse Rate [ Left Dorsalis Pedis] Respiratory 30 H 30 H 25 H Rate Blood Pressure 107/74 107/72 134/93 O2 Sat by Pulse 99 99 100 Oximetry 06/29/18 06/29/18 06/29/18 07:38 08:00 08:30 Temperature 97.4 F L Pulse Rate 78 75 73 Pulse Rate [ From Monitor] Pulse Rate [ 75 Left Dorsalis Pedis] Respiratory 30 H 30 H Rate Blood Pressure 134/93 105/72 88/59 O2 Sat by Pulse 99 98 96 Oximetry 06/29/18 06/29/18 06/29/18 09:00 09:30 10:00 Temperature Pulse Rate 73 73 75 Pulse Rate [ From Monitor] Pulse Rate [ Left Dorsalis Pedis] Respiratory 30 H 30 H 30 H Rate Blood Pressure 90/62 90/60 100/69 O2 Sat by Pulse 96 96 97 Oximetry 06/29/18 11:27 Temperature Pulse Rate 75 Pulse Rate [ From Monitor] Pulse Rate [ Left Dorsalis Pedis] Respiratory Rate Blood Pressure 100/69 O2 Sat by Pulse 97 Oximetry Constitutional: no acute distress, other (chronically ill looking middle aged AAM, normocephalic and atraumatic, ETT to vent) Eyes: non-icteric, other (dilated pupils, fixed, non-reative) ENT: oropharynx moist, other (ETT 23 cm BEATRIS) Neck: supple, no lymphadenopathy, no JVD, other (no thyromegaly) Effort: normal (riding set ventilator rate), other (breathing at the set rate) Ascultation: Bilateral: diminished breath sounds (bases), rales (L>R base), rhonchi (scant in bases) Percussion: Bilateral: not dull, dull (bases) Cardiovascular: regular rate and rhythm, other (No R/M) Gastrointestinal: hypoactive bowel sounds, soft, tender (mild), non-distended, other (, scrotal edema) Integumentary: other (femoral vascath) Extremities: no cyanosis, no edema, pulses normal, no ischemia or petechiae Neurologic: other (unresponsive) Psychiatric: other (Obtunded) CBC and BMP: 06/29/18 04:18 06/30/18 04:02 ABG, PT/INR, D-dimer: ABG POC ABG pH 7.364 (7.35-7.45) 06/29/18 04:28 POC ABG pCO2 46.9 (35-45) H 06/29/18 04:28 POC ABG pO2 100 (80-105) 06/29/18 04:28 POC ABG HCO3 26.7 06/29/18 04:28 POC ABG Total CO2 28 06/29/18 04:28 POC ABG O2 Sat 97 06/29/18 04:28 PT/INR, D-dimer PT 15.2 Sec. (12.2-14.9) H 06/23/18 08:34 INR 1.15 (0.87-1.13) H 06/23/18 08:34 Abnormal lab findings: Abnormal Labs 05/13/18 05/13/18 05/13/18 04:27 04:27 19:39 WBC RBC 3.13 L Hgb 9.4 L Hct 26.8 L MCV MCHC 35 H RDW Plt Count Lymph % (Auto) [place] % (Auto) 9.6 H Lymph # [place] # Seg Neutrophils % Seg Neuts % (Manual) Lymphocytes % (Manual) Monocytes % (Manual) Seg Neutrophils # Seg Neutrophils # Man Lymphocytes # (Manual) Monocytes # (Manual) PT INR APTT Heparin Anti-Xa Level POC ABG pH POC ABG pCO2 POC ABG pO2 Sodium 132 L Potassium 5.5 H Chloride 94.1 L Carbon Dioxide 19 L BUN 72 H Creatinine 14.4 H Glucose POC Glucose Lactic Acid Calcium Phosphorus Magnesium Iron TIBC AST ALT Alkaline Phosphatase Lactate Dehydrogenase Total Creatine Kinase C-Reactive Protein Total Protein Albumin 2.8 L Prealbumin CA 19-9 Antigen Folate PTH Intact Urine WBC (Auto) Urine Creatinine 66.0 H Urine Chloride 27.8 L Urine Total Protein 24 H Fluid Glucose Fluid Total Protein Vancomycin Trough Miscellaneous Test Crossmatch 05/13/18 05/14/18 05/14/18 20:00 05:05 05:05 WBC RBC Hgb Hct MCV MCHC RDW Plt Count Lymph % (Auto) [place] % (Auto) Lymph # [place] # Seg Neutrophils % Seg Neuts % (Manual) Lymphocytes % (Manual) Monocytes % (Manual) Seg Neutrophils # Seg Neutrophils # Man Lymphocytes # (Manual) Monocytes # (Manual) PT INR APTT Heparin Anti-Xa Level POC ABG pH POC ABG pCO2 POC ABG pO2 Sodium 132 L 131 L Potassium 5.2 H 5.8 H Chloride 93.0 L 95.6 L Carbon Dioxide 19 L 20 L BUN 74 H 81 H Creatinine 15.0 H 16.6 H Glucose 134 H 127 H POC Glucose Lactic Acid Calcium 8.2 L 7.9 L Phosphorus 6.30 H Magnesium Iron TIBC AST ALT Alkaline Phosphatase Lactate Dehydrogenase Total Creatine Kinase 236 H C-Reactive Protein Total Protein Albumin Prealbumin CA 19-9 Antigen Folate PTH Intact 65.37 H Urine WBC (Auto) Urine Creatinine Urine Chloride Urine Total Protein Fluid Glucose Fluid Total Protein Vancomycin Trough Miscellaneous Test Crossmatch 05/14/18 05/14/18 05/14/18 09:28 10:56 13:29 WBC RBC Hgb Hct MCV MCHC RDW Plt Count Lymph % (Auto) [place] % (Auto) Lymph # [place] # Seg Neutrophils % Seg Neuts % (Manual) Lymphocytes % (Manual) Monocytes % (Manual) Seg Neutrophils # Seg Neutrophils # Man Lymphocytes # (Manual) Monocytes # (Manual) PT INR APTT 38.2 H Heparin Anti-Xa Level POC ABG pH POC ABG pCO2 POC ABG pO2 Sodium Potassium Chloride Carbon Dioxide BUN Creatinine Glucose POC Glucose 127 H 126 H Lactic Acid Calcium Phosphorus Magnesium Iron TIBC AST ALT Alkaline Phosphatase Lactate Dehydrogenase Total Creatine Kinase C-Reactive Protein Total Protein Albumin Prealbumin CA 19-9 Antigen Folate PTH Intact Urine WBC (Auto) Urine Creatinine Urine Chloride Urine Total Protein Fluid Glucose Fluid Total Protein Vancomycin Trough Miscellaneous Test Crossmatch 05/15/18 05/15/18 05/16/18 08:06 08:06 07:02 WBC RBC 2.84 L 2.74 L Hgb 8.5 L 8.5 L Hct 24.2 L 23.5 L MCV MCHC 35 H 36 H RDW Plt Count Lymph % (Auto) [place] % (Auto) 10.4 H 11.0 H Lymph # 1.1 L [place] # 0.9 H Seg Neutrophils % 72.6 H Seg Neuts % (Manual) Lymphocytes % (Manual) Monocytes % (Manual) Seg Neutrophils # Seg Neutrophils # Man Lymphocytes # (Manual) Monocytes # (Manual) PT INR APTT Heparin Anti-Xa Level POC ABG pH POC ABG pCO2 POC ABG pO2 Sodium Potassium Chloride Carbon Dioxide 19 L BUN 66 H Creatinine 12.0 H Glucose 115 H POC Glucose Lactic Acid Calcium 8.1 L Phosphorus Magnesium Iron TIBC AST ALT Alkaline Phosphatase Lactate Dehydrogenase Total Creatine Kinase C-Reactive Protein Total Protein Albumin Prealbumin CA 19-9 Antigen Folate PTH Intact Urine WBC (Auto) Urine Creatinine Urine Chloride Urine Total Protein Fluid Glucose Fluid Total Protein Vancomycin Trough Miscellaneous Test Crossmatch 05/16/18 05/16/18 05/17/18 07:02 07:02 05:08 WBC RBC 2.78 L Hgb 8.2 L Hct 23.9 L MCV MCHC RDW Plt Count Lymph % (Auto) [place] % (Auto) 13.9 H Lymph # [place] # 0.9 H Seg Neutrophils % Seg Neuts % (Manual) Lymphocytes % (Manual) Monocytes % (Manual) Seg Neutrophils # Seg Neutrophils # Man Lymphocytes # (Manual) Monocytes # (Manual) PT INR APTT Heparin Anti-Xa Level POC ABG pH POC ABG pCO2 POC ABG pO2 Sodium Potassium Chloride Carbon Dioxide BUN 28 H Creatinine 2.4 H D Glucose POC Glucose Lactic Acid Calcium 8.3 L Phosphorus Magnesium 1.50 L Iron 24 L TIBC 160 L AST ALT Alkaline Phosphatase Lactate Dehydrogenase Total Creatine Kinase C-Reactive Protein Total Protein Albumin Prealbumin CA 19-9 Antigen Folate 5.39 L PTH Intact Urine WBC (Auto) Urine Creatinine Urine Chloride Urine Total Protein Fluid Glucose Fluid Total Protein Vancomycin Trough Miscellaneous Test Crossmatch 05/17/18 05/18/18 05/18/18 05:08 05:57 05:57 WBC RBC 2.79 L Hgb 8.3 L Hct 24.0 L MCV MCHC 35 H RDW Plt Count Lymph % (Auto) [place] % (Auto) 11.8 H Lymph # [place] # 0.9 H Seg Neutrophils % Seg Neuts % (Manual) Lymphocytes % (Manual) Monocytes % (Manual) Seg Neutrophils # Seg Neutrophils # Man Lymphocytes # (Manual) Monocytes # (Manual) PT INR APTT Heparin Anti-Xa Level POC ABG pH POC ABG pCO2 POC ABG pO2 Sodium Potassium Chloride Carbon Dioxide BUN Creatinine Glucose POC Glucose Lactic Acid Calcium 7.7 L 8.0 L Phosphorus Magnesium 1.60 L Iron TIBC AST ALT Alkaline Phosphatase Lactate Dehydrogenase Total Creatine Kinase C-Reactive Protein Total Protein Albumin Prealbumin CA 19-9 Antigen Folate PTH Intact Urine WBC (Auto) Urine Creatinine Urine Chloride Urine Total Protein Fluid Glucose Fluid Total Protein Vancomycin Trough Miscellaneous Test Crossmatch 05/19/18 05/19/18 05/20/18 05:33 05:33 05:38 WBC RBC 2.95 L Hgb 8.8 L Hct 25.8 L MCV MCHC RDW Plt Count Lymph % (Auto) 10.1 L [place] % (Auto) Lymph # 1.1 L [place] # Seg Neutrophils % 85.2 H Seg Neuts % (Manual) Lymphocytes % (Manual) Monocytes % (Manual) Seg Neutrophils # 9.0 H Seg Neutrophils # Man Lymphocytes # (Manual) Monocytes # (Manual) PT INR APTT Heparin Anti-Xa Level POC ABG pH POC ABG pCO2 POC ABG pO2 Sodium 135 L Potassium Chloride Carbon Dioxide BUN Creatinine Glucose 132 H POC Glucose Lactic Acid Calcium 7.8 L 8.3 L Phosphorus Magnesium 1.40 L Iron TIBC AST ALT Alkaline Phosphatase Lactate Dehydrogenase Total Creatine Kinase C-Reactive Protein Total Protein Albumin Prealbumin CA 19-9 Antigen Folate PTH Intact Urine WBC (Auto) Urine Creatinine Urine Chloride Urine Total Protein Fluid Glucose Fluid Total Protein Vancomycin Trough Miscellaneous Test Crossmatch 05/21/18 05/21/18 05/22/18 04:46 15:30 06:49 WBC 20.0 H RBC 2.70 L Hgb 7.8 L Hct 23.3 L MCV MCHC RDW Plt Count Lymph % (Auto) [place] % (Auto) Lymph # [place] # Seg Neutrophils % Seg Neuts % (Manual) 85.0 H Lymphocytes % (Manual) 4.0 L Monocytes % (Manual) Seg Neutrophils # Seg Neutrophils # Man 17.0 H Lymphocytes # (Manual) 0.8 L Monocytes # (Manual) PT INR APTT Heparin Anti-Xa Level POC ABG pH POC ABG pCO2 POC ABG pO2 Sodium 135 L Potassium 3.5 L Chloride Carbon Dioxide 21 L BUN 22 H Creatinine Glucose POC Glucose Lactic Acid Calcium 8.1 L Phosphorus Magnesium Iron TIBC AST ALT Alkaline Phosphatase Lactate Dehydrogenase Total Creatine Kinase C-Reactive Protein Total Protein Albumin Prealbumin CA 19-9 Antigen Folate PTH Intact Urine WBC (Auto) 28.0 H Urine Creatinine Urine Chloride Urine Total Protein Fluid Glucose Fluid Total Protein Vancomycin Trough Miscellaneous Test Crossmatch 05/22/18 05/22/18 05/23/18 06:49 11:23 09:03 WBC RBC Hgb Hct MCV MCHC RDW Plt Count Lymph % (Auto) [place] % (Auto) Lymph # [place] # Seg Neutrophils % Seg Neuts % (Manual) Lymphocytes % (Manual) Monocytes % (Manual) Seg Neutrophils # Seg Neutrophils # Man Lymphocytes # (Manual) Monocytes # (Manual) PT INR APTT Heparin Anti-Xa Level POC ABG pH POC ABG pCO2 POC ABG pO2 Sodium 134 L Potassium 3.5 L Chloride Carbon Dioxide 21 L BUN 35 H 36 H Creatinine 1.7 H Glucose 107 H POC Glucose Lactic Acid Calcium 7.9 L Phosphorus Magnesium 2.50 H Iron TIBC AST ALT Alkaline Phosphatase Lactate Dehydrogenase Total Creatine Kinase C-Reactive Protein Total Protein Albumin Prealbumin CA 19-9 Antigen Folate PTH Intact Urine WBC (Auto) Urine Creatinine Urine Chloride Urine Total Protein Fluid Glucose Fluid Total Protein Vancomycin Trough Miscellaneous Test Crossmatch See Detail 05/23/18 05/23/18 05/23/18 09:03 09:03 17:34 WBC 26.3 H RBC 3.57 L Hgb 10.4 L Hct 31.1 L D MCV MCHC RDW Plt Count Lymph % (Auto) [place] % (Auto) Lymph # [place] # Seg Neutrophils % Seg Neuts % (Manual) Lymphocytes % (Manual) Monocytes % (Manual) Seg Neutrophils # Seg Neutrophils # Man Lymphocytes # (Manual) Monocytes # (Manual) PT 18.3 H INR 1.43 H APTT 40.0 H Heparin Anti-Xa Level POC ABG pH POC ABG pCO2 POC ABG pO2 Sodium Potassium Chloride Carbon Dioxide BUN Creatinine Glucose POC Glucose 108 H Lactic Acid Calcium Phosphorus Magnesium Iron TIBC AST ALT Alkaline Phosphatase Lactate Dehydrogenase Total Creatine Kinase C-Reactive Protein Total Protein Albumin Prealbumin CA 19-9 Antigen Folate PTH Intact Urine WBC (Auto) Urine Creatinine Urine Chloride Urine Total Protein Fluid Glucose Fluid Total Protein Vancomycin Trough Miscellaneous Test Crossmatch 05/23/18 05/24/18 05/24/18 21:14 04:43 08:04 WBC RBC Hgb Hct MCV MCHC RDW Plt Count Lymph % (Auto) [place] % (Auto) Lymph # [place] # Seg Neutrophils % Seg Neuts % (Manual) Lymphocytes % (Manual) Monocytes % (Manual) Seg Neutrophils # Seg Neutrophils # Man Lymphocytes # (Manual) Monocytes # (Manual) PT INR APTT Heparin Anti-Xa Level POC ABG pH POC ABG pCO2 POC ABG pO2 Sodium 146 H Potassium Chloride 108.6 H Carbon Dioxide BUN 33 H Creatinine Glucose 109 H POC Glucose 110 H 106 H Lactic Acid Calcium 8.3 L Phosphorus Magnesium 2.50 H Iron TIBC AST ALT Alkaline Phosphatase Lactate Dehydrogenase Total Creatine Kinase C-Reactive Protein Total Protein Albumin Prealbumin CA 19-9 Antigen Folate PTH Intact Urine WBC (Auto) Urine Creatinine Urine Chloride Urine Total Protein Fluid Glucose Fluid Total Protein Vancomycin Trough Miscellaneous Test Crossmatch 05/25/18 05/25/18 05/25/18 05:42 05:49 19:50 WBC RBC Hgb Hct MCV MCHC RDW Plt Count Lymph % (Auto) [place] % (Auto) Lymph # [place] # Seg Neutrophils % Seg Neuts % (Manual) Lymphocytes % (Manual) Monocytes % (Manual) Seg Neutrophils # Seg Neutrophils # Man Lymphocytes # (Manual) Monocytes # (Manual) PT INR APTT Heparin Anti-Xa Level POC ABG pH POC ABG pCO2 POC ABG pO2 Sodium 150 H Potassium Chloride 112.5 H Carbon Dioxide BUN 34 H Creatinine Glucose 102 H POC Glucose 107 H Lactic Acid Calcium Phosphorus Magnesium Iron TIBC AST ALT Alkaline Phosphatase Lactate Dehydrogenase Total Creatine Kinase C-Reactive Protein 34.50 H Total Protein Albumin Prealbumin CA 19-9 Antigen Folate PTH Intact Urine WBC (Auto) Urine Creatinine Urine Chloride Urine Total Protein Fluid Glucose Fluid Total Protein Vancomycin Trough Miscellaneous Test Crossmatch 05/25/18 05/25/18 05/25/18 19:50 21:05 22:46 WBC RBC Hgb Hct MCV MCHC RDW Plt Count Lymph % (Auto) [place] % (Auto) Lymph # [place] # Seg Neutrophils % Seg Neuts % (Manual) Lymphocytes % (Manual) Monocytes % (Manual) Seg Neutrophils # Seg Neutrophils # Man Lymphocytes # (Manual) Monocytes # (Manual) PT INR APTT Heparin Anti-Xa Level POC ABG pH 7.483 H POC ABG pCO2 24.0 L POC ABG pO2 72 L Sodium Potassium Chloride Carbon Dioxide BUN Creatinine Glucose POC Glucose Lactic Acid 5.90 H* Calcium Phosphorus Magnesium Iron TIBC AST ALT Alkaline Phosphatase Lactate Dehydrogenase Total Creatine Kinase C-Reactive Protein Total Protein Albumin Prealbumin CA 19-9 Antigen Folate PTH Intact Urine WBC (Auto) Urine Creatinine Urine Chloride Urine Total Protein Fluid Glucose Fluid Total Protein Vancomycin Trough 25.1 H Miscellaneous Test Crossmatch 05/25/18 05/26/18 05/26/18 22:46 00:21 00:51 WBC RBC Hgb Hct MCV MCHC RDW Plt Count Lymph % (Auto) [place] % (Auto) Lymph # [place] # Seg Neutrophils % Seg Neuts % (Manual) Lymphocytes % (Manual) Monocytes % (Manual) Seg Neutrophils # Seg Neutrophils # Man Lymphocytes # (Manual) Monocytes # (Manual) PT INR APTT Heparin Anti-Xa Level POC ABG pH POC ABG pCO2 POC ABG pO2 Sodium Potassium Chloride Carbon Dioxide BUN Creatinine Glucose POC Glucose 133 H Lactic Acid 8.10 H* 6.20 H* Calcium Phosphorus Magnesium Iron TIBC AST ALT Alkaline Phosphatase Lactate Dehydrogenase Total Creatine Kinase C-Reactive Protein Total Protein Albumin Prealbumin CA 19-9 Antigen Folate PTH Intact Urine WBC (Auto) Urine Creatinine Urine Chloride Urine Total Protein Fluid Glucose Fluid Total Protein Vancomycin Trough Miscellaneous Test Crossmatch 05/26/18 05/26/18 05/26/18 01:13 02:24 02:24 WBC 18.7 H RBC Hgb 11.6 L Hct MCV MCHC RDW Plt Count Lymph % (Auto) [place] % (Auto) Lymph # [place] # Seg Neutrophils % Seg Neuts % (Manual) Lymphocytes % (Manual) Monocytes % (Manual) Seg Neutrophils # Seg Neutrophils # Man Lymphocytes # (Manual) Monocytes # (Manual) PT INR APTT Heparin Anti-Xa Level POC ABG pH POC ABG pCO2 POC ABG pO2 Sodium 147 H Potassium 6.2 H* D Chloride 111.9 H Carbon Dioxide 19 L BUN 80 H Creatinine 5.1 H D Glucose 112 H POC Glucose Lactic Acid 5.20 H* Calcium 6.7 L D Phosphorus Magnesium Iron TIBC AST ALT Alkaline Phosphatase Lactate Dehydrogenase Total Creatine Kinase C-Reactive Protein Total Protein Albumin Prealbumin CA 19-9 Antigen Folate PTH Intact Urine WBC (Auto) Urine Creatinine Urine Chloride Urine Total Protein Fluid Glucose Fluid Total Protein Vancomycin Trough Miscellaneous Test Crossmatch 05/26/18 05/26/18 05/26/18 04:20 04:20 05:39 WBC RBC Hgb Hct MCV MCHC RDW Plt Count Lymph % (Auto) [place] % (Auto) Lymph # [place] # Seg Neutrophils % Seg Neuts % (Manual) Lymphocytes % (Manual) Monocytes % (Manual) Seg Neutrophils # Seg Neutrophils # Man Lymphocytes # (Manual) Monocytes # (Manual) PT INR APTT Heparin Anti-Xa Level POC ABG pH POC ABG pCO2 POC ABG pO2 Sodium 150 H Potassium Chloride 110.0 H Carbon Dioxide 19 L BUN 66 H Creatinine Glucose 166 H POC Glucose 187 H Lactic Acid 5.10 H* Calcium 6.9 L Phosphorus 6.70 H D Magnesium Iron TIBC AST ALT Alkaline Phosphatase Lactate Dehydrogenase Total Creatine Kinase C-Reactive Protein Total Protein Albumin Prealbumin CA 19-9 Antigen Folate PTH Intact Urine WBC (Auto) Urine Creatinine Urine Chloride Urine Total Protein Fluid Glucose Fluid Total Protein Vancomycin Trough Miscellaneous Test Crossmatch 05/26/18 05/26/18 05/26/18 06:02 07:29 11:00 WBC RBC Hgb Hct MCV MCHC RDW Plt Count Lymph % (Auto) [place] % (Auto) Lymph # [place] # Seg Neutrophils % Seg Neuts % (Manual) Lymphocytes % (Manual) Monocytes % (Manual) Seg Neutrophils # Seg Neutrophils # Man Lymphocytes # (Manual) Monocytes # (Manual) PT INR APTT Heparin Anti-Xa Level POC ABG pH POC ABG pCO2 28.8 L POC ABG pO2 Sodium Potassium Chloride Carbon Dioxide BUN Creatinine Glucose POC Glucose Lactic Acid 4.80 H* 3.80 H* Calcium Phosphorus Magnesium Iron TIBC AST ALT Alkaline Phosphatase Lactate Dehydrogenase Total Creatine Kinase C-Reactive Protein Total Protein Albumin Prealbumin CA 19-9 Antigen Folate PTH Intact Urine WBC (Auto) Urine Creatinine Urine Chloride Urine Total Protein Fluid Glucose Fluid Total Protein Vancomycin Trough Miscellaneous Test Crossmatch 0905/26/18 05/26/18 11:01 12:28 18:00 WBC RBC Hgb Hct MCV MCHC RDW Plt Count Lymph % (Auto) [place] % (Auto) Lymph # [place] # Seg Neutrophils % Seg Neuts % (Manual) Lymphocytes % (Manual) Monocytes % (Manual) Seg Neutrophils # Seg Neutrophils # Man Lymphocytes # (Manual) Monocytes # (Manual) PT INR APTT Heparin Anti-Xa Level POC ABG pH POC ABG pCO2 POC ABG pO2 Sodium 150 H 151 H Potassium 5.3 H D 6.1 H* Chloride 110.3 H 117.0 H Carbon Dioxide 21 L 20 L BUN 75 H 77 H Creatinine 4.3 H D 4.6 H Glucose 161 H POC Glucose 114 H Lactic Acid Calcium 7.5 L 6.7 L Phosphorus Magnesium Iron TIBC AST 1041 H ALT 406 H Alkaline Phosphatase 281 H Lactate Dehydrogenase Total Creatine Kinase C-Reactive Protein Total Protein 4.4 L Albumin 1.3 L Prealbumin CA 19-9 Antigen Folate PTH Intact Urine WBC (Auto) Urine Creatinine Urine Chloride Urine Total Protein Fluid Glucose Fluid Total Protein Vancomycin Trough Miscellaneous Test Crossmatch 05/26/18 05/26/18 05/27/18 18:02 19:17 01:01 WBC 21.7 H RBC 2.70 L Hgb 7.8 L D Hct 24.6 L D MCV MCHC RDW 15.3 H Plt Count Lymph % (Auto) [place] % (Auto) Lymph # [place] # Seg Neutrophils % Seg Neuts % (Manual) 94.0 H Lymphocytes % (Manual) 3.0 L Monocytes % (Manual) Seg Neutrophils # Seg Neutrophils # Man 20.4 H Lymphocytes # (Manual) 0.7 L Monocytes # (Manual) PT INR APTT Heparin Anti-Xa Level POC ABG pH 7.159 L 7.205 L POC ABG pCO2 54.5 H 53.0 H POC ABG pO2 252 H Sodium Potassium Chloride Carbon Dioxide BUN Creatinine Glucose POC Glucose Lactic Acid Calcium Phosphorus Magnesium Iron TIBC AST ALT Alkaline Phosphatase Lactate Dehydrogenase Total Creatine Kinase C-Reactive Protein Total Protein Albumin Prealbumin CA 19-9 Antigen Folate PTH Intact Urine WBC (Auto) Urine Creatinine Urine Chloride Urine Total Protein Fluid Glucose Fluid Total Protein Vancomycin Trough Miscellaneous Test Crossmatch 05/27/18 05/27/18 05/27/18 05:15 05:15 06:11 WBC 24.9 H RBC 2.86 L Hgb 8.1 L Hct 25.9 L MCV MCHC RDW 15.5 H Plt Count Lymph % (Auto) [place] % (Auto) Lymph # [place] # Seg Neutrophils % Seg Neuts % (Manual) Lymphocytes % (Manual) Monocytes % (Manual) Seg Neutrophils # Seg Neutrophils # Man Lymphocytes # (Manual) Monocytes # (Manual) PT INR APTT Heparin Anti-Xa Level POC ABG pH 7.265 L POC ABG pCO2 46.2 H POC ABG pO2 111 H Sodium 149 H Potassium 6.9 H* Chloride 113.5 H Carbon Dioxide BUN 89 H Creatinine 5.2 H Glucose 118 H POC Glucose Lactic Acid Calcium 7.0 L Phosphorus 9.70 H D Magnesium Iron TIBC AST 876 H ALT 408 H Alkaline Phosphatase Lactate Dehydrogenase Total Creatine Kinase C-Reactive Protein Total Protein 5.2 L Albumin 1.5 L Prealbumin CA 19-9 Antigen Folate PTH Intact Urine WBC (Auto) Urine Creatinine Urine Chloride Urine Total Protein Fluid Glucose Fluid Total Protein Vancomycin Trough Miscellaneous Test Crossmatch 05/27/18 05/27/18 05/27/18 08:48 10:22 10:22 WBC RBC Hgb Hct MCV MCHC RDW Plt Count Lymph % (Auto) [place] % (Auto) Lymph # [place] # Seg Neutrophils % Seg Neuts % (Manual) Lymphocytes % (Manual) Monocytes % (Manual) Seg Neutrophils # Seg Neutrophils # Man Lymphocytes # (Manual) Monocytes # (Manual) PT INR APTT Heparin Anti-Xa Level POC ABG pH POC ABG pCO2 POC ABG pO2 Sodium 146 H Potassium 6.1 H* Chloride 108.2 H Carbon Dioxide 21 L BUN 88 H Creatinine 5.6 H Glucose 163 H POC Glucose 164 H Lactic Acid Calcium 6.7 L Phosphorus Magnesium Iron TIBC AST ALT Alkaline Phosphatase Lactate Dehydrogenase Total Creatine Kinase C-Reactive Protein 40.70 H Total Protein Albumin Prealbumin CA 19-9 Antigen Folate PTH Intact Urine WBC (Auto) Urine Creatinine Urine Chloride Urine Total Protein Fluid Glucose Fluid Total Protein Vancomycin Trough Miscellaneous Test Crossmatch 05/27/18 05/27/18 05/27/18 13:02 17:39 23:27 WBC RBC Hgb Hct MCV MCHC RDW Plt Count Lymph % (Auto) [place] % (Auto) Lymph # [place] # Seg Neutrophils % Seg Neuts % (Manual) Lymphocytes % (Manual) Monocytes % (Manual) Seg Neutrophils # Seg Neutrophils # Man Lymphocytes # (Manual) Monocytes # (Manual) PT INR APTT Heparin Anti-Xa Level POC ABG pH POC ABG pCO2 POC ABG pO2 Sodium Potassium Chloride Carbon Dioxide BUN Creatinine Glucose POC Glucose 59 L 132 H Lactic Acid Calcium Phosphorus Magnesium Iron TIBC AST ALT Alkaline Phosphatase Lactate Dehydrogenase Total Creatine Kinase C-Reactive Protein Total Protein Albumin Prealbumin CA 19-9 Antigen Folate PTH Intact Urine WBC (Auto) Urine Creatinine Urine Chloride Urine Total Protein Fluid Glucose Fluid Total Protein Vancomycin Trough Miscellaneous Test Flexitest 1 H Crossmatch 05/27/18 05/28/18 05/28/18 Unknown 04:32 05:00 WBC RBC Hgb Hct MCV MCHC RDW Plt Count Lymph % (Auto) [place] % (Auto) Lymph # [place] # Seg Neutrophils % Seg Neuts % (Manual) Lymphocytes % (Manual) Monocytes % (Manual) Seg Neutrophils # Seg Neutrophils # Man Lymphocytes # (Manual) Monocytes # (Manual) PT INR APTT Heparin Anti-Xa Level POC ABG pH POC ABG pCO2 POC ABG pO2 134 H Sodium Potassium Chloride Carbon Dioxide BUN 69 H Creatinine 4.4 H Glucose 118 H POC Glucose Lactic Acid Calcium 8.0 L D Phosphorus 6.80 H D Magnesium Iron TIBC AST ALT Alkaline Phosphatase Lactate Dehydrogenase Total Creatine Kinase C-Reactive Protein Total Protein Albumin Prealbumin CA 19-9 Antigen Folate PTH Intact Urine WBC (Auto) 120.0 H Urine Creatinine Urine Chloride Urine Total Protein Fluid Glucose Fluid Total Protein Vancomycin Trough Miscellaneous Test Crossmatch 05/28/18 05/28/18 05/28/18 05:00 05:27 13:04 WBC 26.5 H RBC 2.69 L Hgb 7.7 L Hct 23.6 L MCV MCHC RDW Plt Count Lymph % (Auto) [place] % (Auto) Lymph # [place] # Seg Neutrophils % Seg Neuts % (Manual) 96.0 H Lymphocytes % (Manual) 0 L Monocytes % (Manual) Seg Neutrophils # Seg Neutrophils # Man 25.4 H Lymphocytes # (Manual) 0.0 L Monocytes # (Manual) PT INR APTT Heparin Anti-Xa Level POC ABG pH POC ABG pCO2 POC ABG pO2 Sodium Potassium Chloride Carbon Dioxide BUN Creatinine Glucose POC Glucose 128 H 155 H Lactic Acid Calcium Phosphorus Magnesium Iron TIBC AST ALT Alkaline Phosphatase Lactate Dehydrogenase Total Creatine Kinase C-Reactive Protein Total Protein Albumin Prealbumin CA 19-9 Antigen Folate PTH Intact Urine WBC (Auto) Urine Creatinine Urine Chloride Urine Total Protein Fluid Glucose Fluid Total Protein Vancomycin Trough Miscellaneous Test Crossmatch 05/28/18 05/29/18 05/29/18 17:56 03:35 04:00 WBC RBC Hgb Hct MCV MCHC RDW Plt Count Lymph % (Auto) [place] % (Auto) Lymph # [place] # Seg Neutrophils % Seg Neuts % (Manual) Lymphocytes % (Manual) Monocytes % (Manual) Seg Neutrophils # Seg Neutrophils # Man Lymphocytes # (Manual) Monocytes # (Manual) PT INR APTT Heparin Anti-Xa Level POC ABG pH 7.471 H POC ABG pCO2 POC ABG pO2 78 L Sodium Potassium Chloride Carbon Dioxide BUN 50 H Creatinine 3.9 H Glucose POC Glucose 110 H Lactic Acid Calcium 7.7 L Phosphorus Magnesium 1.50 L Iron TIBC AST 218 H ALT 204 H Alkaline Phosphatase Lactate Dehydrogenase Total Creatine Kinase C-Reactive Protein Total Protein 5.4 L Albumin 1.6 L Prealbumin CA 19-9 Antigen Folate PTH Intact Urine WBC (Auto) Urine Creatinine Urine Chloride Urine Total Protein Fluid Glucose Fluid Total Protein Vancomycin Trough Miscellaneous Test Crossmatch 05/29/18 05/29/18 05/30/18 11:51 23:56 04:54 WBC RBC Hgb Hct MCV MCHC RDW Plt Count Lymph % (Auto) [place] % (Auto) Lymph # [place] # Seg Neutrophils % Seg Neuts % (Manual) Lymphocytes % (Manual) Monocytes % (Manual) Seg Neutrophils # Seg Neutrophils # Man Lymphocytes # (Manual) Monocytes # (Manual) PT INR APTT Heparin Anti-Xa Level POC ABG pH POC ABG pCO2 POC ABG pO2 Sodium Potassium Chloride Carbon Dioxide BUN Creatinine Glucose POC Glucose 131 H 119 H 115 H Lactic Acid Calcium Phosphorus Magnesium Iron TIBC AST ALT Alkaline Phosphatase Lactate Dehydrogenase Total Creatine Kinase C-Reactive Protein Total Protein Albumin Prealbumin CA 19-9 Antigen Folate PTH Intact Urine WBC (Auto) Urine Creatinine Urine Chloride Urine Total Protein Fluid Glucose Fluid Total Protein Vancomycin Trough Miscellaneous Test Crossmatch 05/30/18 05/30/18 05/30/18 05:07 05:15 05:15 WBC 16.2 H RBC 2.53 L Hgb 7.4 L Hct 21.9 L MCV MCHC RDW Plt Count Lymph % (Auto) [place] % (Auto) Lymph # [place] # Seg Neutrophils % Seg Neuts % (Manual) Lymphocytes % (Manual) Monocytes % (Manual) Seg Neutrophils # Seg Neutrophils # Man Lymphocytes # (Manual) Monocytes # (Manual) PT INR APTT Heparin Anti-Xa Level POC ABG pH POC ABG pCO2 34.5 L POC ABG pO2 133 H Sodium 135 L Potassium Chloride 97.5 L Carbon Dioxide BUN 69 H Creatinine 5.4 H Glucose 105 H POC Glucose Lactic Acid Calcium 7.5 L Phosphorus 5.30 H D Magnesium Iron TIBC AST ALT Alkaline Phosphatase Lactate Dehydrogenase Total Creatine Kinase C-Reactive Protein Total Protein Albumin Prealbumin CA 19-9 Antigen Folate PTH Intact Urine WBC (Auto) Urine Creatinine Urine Chloride Urine Total Protein Fluid Glucose Fluid Total Protein Vancomycin Trough Miscellaneous Test Crossmatch 05/30/18 05/30/18 05/31/18 12:13 17:10 04:50 WBC 18.7 H RBC 2.86 L Hgb 8.2 L Hct 24.8 L MCV MCHC RDW Plt Count Lymph % (Auto) [place] % (Auto) Lymph # [place] # Seg Neutrophils % Seg Neuts % (Manual) 91.0 H Lymphocytes % (Manual) 2.0 L Monocytes % (Manual) Seg Neutrophils # Seg Neutrophils # Man 17.0 H Lymphocytes # (Manual) 0.4 L Monocytes # (Manual) PT INR APTT Heparin Anti-Xa Level POC ABG pH POC ABG pCO2 POC ABG pO2 Sodium Potassium Chloride Carbon Dioxide BUN Creatinine Glucose POC Glucose 132 H 122 H Lactic Acid Calcium Phosphorus Magnesium Iron TIBC AST ALT Alkaline Phosphatase Lactate Dehydrogenase Total Creatine Kinase C-Reactive Protein Total Protein Albumin Prealbumin CA 19-9 Antigen Folate PTH Intact Urine WBC (Auto) Urine Creatinine Urine Chloride Urine Total Protein Fluid Glucose Fluid Total Protein Vancomycin Trough Miscellaneous Test Crossmatch 05/31/18 05/31/18 05/31/18 04:50 05:45 11:37 WBC RBC Hgb Hct MCV MCHC RDW Plt Count Lymph % (Auto) [place] % (Auto) Lymph # [place] # Seg Neutrophils % Seg Neuts % (Manual) Lymphocytes % (Manual) Monocytes % (Manual) Seg Neutrophils # Seg Neutrophils # Man Lymphocytes # (Manual) Monocytes # (Manual) PT INR APTT Heparin Anti-Xa Level POC ABG pH POC ABG pCO2 POC ABG pO2 Sodium 132 L Potassium Chloride 92.4 L Carbon Dioxide BUN 77 H Creatinine 5.9 H Glucose POC Glucose 111 H 136 H Lactic Acid Calcium 7.3 L Phosphorus 6.40 H D Magnesium Iron TIBC AST ALT Alkaline Phosphatase Lactate Dehydrogenase Total Creatine Kinase C-Reactive Protein Total Protein Albumin Prealbumin CA 19-9 Antigen Folate PTH Intact Urine WBC (Auto) Urine Creatinine Urine Chloride Urine Total Protein Fluid Glucose Fluid Total Protein Vancomycin Trough Miscellaneous Test Crossmatch 05/31/18 06/01/18 06/01/18 17:52 00:09 04:00 WBC RBC Hgb Hct MCV MCHC RDW Plt Count Lymph % (Auto) [place] % (Auto) Lymph # [place] # Seg Neutrophils % Seg Neuts % (Manual) Lymphocytes % (Manual) Monocytes % (Manual) Seg Neutrophils # Seg Neutrophils # Man Lymphocytes # (Manual) Monocytes # (Manual) PT INR APTT Heparin Anti-Xa Level POC ABG pH POC ABG pCO2 POC ABG pO2 Sodium Potassium Chloride 97.5 L Carbon Dioxide BUN 49 H Creatinine 4.2 H Glucose 104 H POC Glucose 115 H 114 H Lactic Acid Calcium 7.3 L Phosphorus 4.70 H D Magnesium Iron TIBC AST ALT Alkaline Phosphatase Lactate Dehydrogenase Total Creatine Kinase C-Reactive Protein Total Protein Albumin Prealbumin CA 19-9 Antigen Folate PTH Intact Urine WBC (Auto) Urine Creatinine Urine Chloride Urine Total Protein Fluid Glucose Fluid Total Protein Vancomycin Trough Miscellaneous Test Crossmatch 06/01/18 06/01/18 06/02/18 11:10 17:56 00:15 WBC RBC Hgb Hct MCV MCHC RDW Plt Count Lymph % (Auto) [place] % (Auto) Lymph # [place] # Seg Neutrophils % Seg Neuts % (Manual) Lymphocytes % (Manual) Monocytes % (Manual) Seg Neutrophils # Seg Neutrophils # Man Lymphocytes # (Manual) Monocytes # (Manual) PT INR APTT Heparin Anti-Xa Level POC ABG pH POC ABG pCO2 POC ABG pO2 Sodium Potassium Chloride Carbon Dioxide BUN Creatinine Glucose POC Glucose 123 H 126 H 135 H Lactic Acid Calcium Phosphorus Magnesium Iron TIBC AST ALT Alkaline Phosphatase Lactate Dehydrogenase Total Creatine Kinase C-Reactive Protein Total Protein Albumin Prealbumin CA 19-9 Antigen Folate PTH Intact Urine WBC (Auto) Urine Creatinine Urine Chloride Urine Total Protein Fluid Glucose Fluid Total Protein Vancomycin Trough Miscellaneous Test Crossmatch 06/02/18 06/02/18 06/02/18 05:23 12:42 13:05 WBC RBC Hgb Hct MCV MCHC RDW Plt Count Lymph % (Auto) [place] % (Auto) Lymph # [place] # Seg Neutrophils % Seg Neuts % (Manual) Lymphocytes % (Manual) Monocytes % (Manual) Seg Neutrophils # Seg Neutrophils # Man Lymphocytes # (Manual) Monocytes # (Manual) PT 17.1 H INR 1.34 H APTT Heparin Anti-Xa Level POC ABG pH POC ABG pCO2 POC ABG pO2 Sodium Potassium Chloride Carbon Dioxide BUN Creatinine Glucose POC Glucose 135 H 142 H Lactic Acid Calcium Phosphorus Magnesium Iron TIBC AST ALT Alkaline Phosphatase Lactate Dehydrogenase Total Creatine Kinase C-Reactive Protein Total Protein Albumin Prealbumin CA 19-9 Antigen Folate PTH Intact Urine WBC (Auto) Urine Creatinine Urine Chloride Urine Total Protein Fluid Glucose Fluid Total Protein Vancomycin Trough Miscellaneous Test Crossmatch 06/02/18 06/02/18 06/03/18 Unknown Unknown 00:54 WBC 20.8 H RBC 2.67 L Hgb 7.7 L Hct 23.0 L MCV MCHC RDW Plt Count 500 H Lymph % (Auto) [place] % (Auto) Lymph # [place] # Seg Neutrophils % Seg Neuts % (Manual) Lymphocytes % (Manual) Monocytes % (Manual) Seg Neutrophils # Seg Neutrophils # Man Lymphocytes # (Manual) Monocytes # (Manual) PT INR APTT Heparin Anti-Xa Level POC ABG pH POC ABG pCO2 POC ABG pO2 Sodium 136 L Potassium 3.5 L Chloride 96.9 L Carbon Dioxide BUN 62 H Creatinine 4.9 H Glucose 133 H POC Glucose 125 H Lactic Acid Calcium 7.2 L Phosphorus 5.00 H Magnesium Iron TIBC AST 46 H ALT 66 H Alkaline Phosphatase Lactate Dehydrogenase Total Creatine Kinase C-Reactive Protein Total Protein 5.7 L Albumin 1.5 L Prealbumin CA 19-9 Antigen Folate PTH Intact Urine WBC (Auto) Urine Creatinine Urine Chloride Urine Total Protein Fluid Glucose Fluid Total Protein Vancomycin Trough Miscellaneous Test Crossmatch 06/03/18 06/03/18 06/03/18 03:31 09:18 09:18 WBC RBC Hgb Hct MCV MCHC RDW Plt Count Lymph % (Auto) [place] % (Auto) Lymph # [place] # Seg Neutrophils % Seg Neuts % (Manual) Lymphocytes % (Manual) Monocytes % (Manual) Seg Neutrophils # Seg Neutrophils # Man Lymphocytes # (Manual) Monocytes # (Manual) PT 17.1 H INR 1.34 H APTT Heparin Anti-Xa Level POC ABG pH POC ABG pCO2 POC ABG pO2 Sodium 136 L Potassium Chloride Carbon Dioxide BUN 41 H Creatinine 3.4 H Glucose 129 H POC Glucose Lactic Acid Calcium 7.4 L Phosphorus Magnesium Iron TIBC AST ALT Alkaline Phosphatase Lactate Dehydrogenase Total Creatine Kinase C-Reactive Protein 11.10 H Total Protein Albumin Prealbumin CA 19-9 Antigen Folate PTH Intact Urine WBC (Auto) Urine Creatinine Urine Chloride Urine Total Protein Fluid Glucose Fluid Total Protein Vancomycin Trough Miscellaneous Test Crossmatch 06/03/18 06/03/18 06/03/18 16:07 21:18 Unknown WBC RBC Hgb Hct MCV MCHC RDW Plt Count Lymph % (Auto) [place] % (Auto) Lymph # [place] # Seg Neutrophils % Seg Neuts % (Manual) Lymphocytes % (Manual) Monocytes % (Manual) Seg Neutrophils # Seg Neutrophils # Man Lymphocytes # (Manual) Monocytes # (Manual) PT INR APTT Heparin Anti-Xa Level POC ABG pH POC ABG pCO2 POC ABG pO2 Sodium Potassium Chloride Carbon Dioxide BUN Creatinine Glucose POC Glucose 144 H 128 H Lactic Acid Calcium Phosphorus Magnesium Iron TIBC AST ALT Alkaline Phosphatase Lactate Dehydrogenase Total Creatine Kinase C-Reactive Protein Total Protein Albumin Prealbumin CA 19-9 Antigen Folate PTH Intact Urine WBC (Auto) Urine Creatinine Urine Chloride Urine Total Protein Fluid Glucose 10 L Fluid Total Protein 3.7 L Vancomycin Trough Miscellaneous Test Crossmatch 06/04/18 06/04/18 06/04/18 04:31 06:14 11:38 WBC RBC Hgb Hct MCV MCHC RDW Plt Count Lymph % (Auto) [place] % (Auto) Lymph # [place] # Seg Neutrophils % Seg Neuts % (Manual) Lymphocytes % (Manual) Monocytes % (Manual) Seg Neutrophils # Seg Neutrophils # Man Lymphocytes # (Manual) Monocytes # (Manual) PT INR APTT Heparin Anti-Xa Level POC ABG pH POC ABG pCO2 POC ABG pO2 Sodium Potassium Chloride Carbon Dioxide BUN 55 H Creatinine 3.7 H Glucose 151 H POC Glucose 145 H 129 H Lactic Acid Calcium 7.8 L Phosphorus 4.60 H Magnesium Iron TIBC AST ALT Alkaline Phosphatase Lactate Dehydrogenase Total Creatine Kinase C-Reactive Protein Total Protein Albumin Prealbumin CA 19-9 Antigen Folate PTH Intact Urine WBC (Auto) Urine Creatinine Urine Chloride Urine Total Protein Fluid Glucose Fluid Total Protein Vancomycin Trough Miscellaneous Test Crossmatch 06/04/18 06/04/18 06/04/18 17:09 20:00 21:29 WBC RBC Hgb 8.8 L Hct 27.3 L MCV MCHC RDW Plt Count Lymph % (Auto) [place] % (Auto) Lymph # [place] # Seg Neutrophils % Seg Neuts % (Manual) Lymphocytes % (Manual) Monocytes % (Manual) Seg Neutrophils # Seg Neutrophils # Man Lymphocytes # (Manual) Monocytes # (Manual) PT INR APTT Heparin Anti-Xa Level POC ABG pH POC ABG pCO2 POC ABG pO2 Sodium Potassium Chloride Carbon Dioxide BUN Creatinine Glucose POC Glucose 142 H 130 H Lactic Acid Calcium Phosphorus Magnesium Iron TIBC AST ALT Alkaline Phosphatase Lactate Dehydrogenase Total Creatine Kinase C-Reactive Protein Total Protein Albumin Prealbumin CA 19-9 Antigen Folate PTH Intact Urine WBC (Auto) Urine Creatinine Urine Chloride Urine Total Protein Fluid Glucose Fluid Total Protein Vancomycin Trough Miscellaneous Test Crossmatch 06/05/18 06/05/18 06/05/18 06:30 07:00 07:00 WBC 19.3 H RBC 2.94 L Hgb 8.3 L Hct 25.6 L MCV MCHC RDW 15.7 H Plt Count 568 H Lymph % (Auto) 4.7 L [place] % (Auto) Lymph # 0.9 L [place] # 1.1 H Seg Neutrophils % 88.9 H Seg Neuts % (Manual) Lymphocytes % (Manual) Monocytes % (Manual) Seg Neutrophils # 17.2 H Seg Neutrophils # Man Lymphocytes # (Manual) Monocytes # (Manual) PT INR APTT Heparin Anti-Xa Level POC ABG pH POC ABG pCO2 POC ABG pO2 Sodium Potassium 3.4 L D Chloride Carbon Dioxide BUN 67 H Creatinine 3.6 H Glucose 145 H POC Glucose 153 H Lactic Acid Calcium 7.9 L Phosphorus 4.60 H Magnesium Iron TIBC AST ALT Alkaline Phosphatase Lactate Dehydrogenase Total Creatine Kinase C-Reactive Protein Total Protein Albumin Prealbumin CA 19-9 Antigen Folate PTH Intact Urine WBC (Auto) Urine Creatinine Urine Chloride Urine Total Protein Fluid Glucose Fluid Total Protein Vancomycin Trough Miscellaneous Test Crossmatch 06/05/18 06/05/18 06/06/18 12:10 16:01 06:39 WBC RBC Hgb Hct MCV MCHC RDW Plt Count Lymph % (Auto) [place] % (Auto) Lymph # [place] # Seg Neutrophils % Seg Neuts % (Manual) Lymphocytes % (Manual) Monocytes % (Manual) Seg Neutrophils # Seg Neutrophils # Man Lymphocytes # (Manual) Monocytes # (Manual) PT INR APTT Heparin Anti-Xa Level POC ABG pH POC ABG pCO2 POC ABG pO2 Sodium Potassium Chloride Carbon Dioxide BUN Creatinine Glucose POC Glucose 150 H 129 H 131 H Lactic Acid Calcium Phosphorus Magnesium Iron TIBC AST ALT Alkaline Phosphatase Lactate Dehydrogenase Total Creatine Kinase C-Reactive Protein Total Protein Albumin Prealbumin CA 19-9 Antigen Folate PTH Intact Urine WBC (Auto) Urine Creatinine Urine Chloride Urine Total Protein Fluid Glucose Fluid Total Protein Vancomycin Trough Miscellaneous Test Crossmatch 06/06/18 06/06/18 06/06/18 07:14 07:14 07:14 WBC 16.5 H RBC 2.84 L Hgb 8.1 L Hct 25.2 L MCV MCHC RDW 16.4 H Plt Count 526 H Lymph % (Auto) 6.5 L [place] % (Auto) Lymph # 1.1 L [place] # 1.2 H Seg Neutrophils % 85.3 H Seg Neuts % (Manual) Lymphocytes % (Manual) Monocytes % (Manual) Seg Neutrophils # 14.1 H Seg Neutrophils # Man Lymphocytes # (Manual) Monocytes # (Manual) PT INR APTT Heparin Anti-Xa Level POC ABG pH POC ABG pCO2 POC ABG pO2 Sodium Potassium Chloride 109.1 H Carbon Dioxide 21 L BUN 76 H Creatinine 3.5 H Glucose 111 H POC Glucose Lactic Acid Calcium 8.1 L Phosphorus Magnesium Iron TIBC AST ALT Alkaline Phosphatase Lactate Dehydrogenase Total Creatine Kinase C-Reactive Protein 4.70 H Total Protein Albumin Prealbumin CA 19-9 Antigen Folate PTH Intact Urine WBC (Auto) Urine Creatinine Urine Chloride Urine Total Protein Fluid Glucose Fluid Total Protein Vancomycin Trough Miscellaneous Test Crossmatch 06/06/18 06/06/18 06/06/18 11:15 18:00 23:58 WBC RBC Hgb Hct MCV MCHC RDW Plt Count Lymph % (Auto) [place] % (Auto) Lymph # [place] # Seg Neutrophils % Seg Neuts % (Manual) Lymphocytes % (Manual) Monocytes % (Manual) Seg Neutrophils # Seg Neutrophils # Man Lymphocytes # (Manual) Monocytes # (Manual) PT INR APTT Heparin Anti-Xa Level POC ABG pH POC ABG pCO2 POC ABG pO2 Sodium Potassium Chloride Carbon Dioxide BUN Creatinine Glucose POC Glucose 127 H 130 H 114 H Lactic Acid Calcium Phosphorus Magnesium Iron TIBC AST ALT Alkaline Phosphatase Lactate Dehydrogenase Total Creatine Kinase C-Reactive Protein Total Protein Albumin Prealbumin CA 19-9 Antigen Folate PTH Intact Urine WBC (Auto) Urine Creatinine Urine Chloride Urine Total Protein Fluid Glucose Fluid Total Protein Vancomycin Trough Miscellaneous Test Crossmatch 06/07/18 06/07/18 06/07/18 05:45 05:45 05:54 WBC 15.5 H RBC 2.60 L Hgb 7.4 L Hct 23.1 L MCV MCHC RDW 16.5 H Plt Count 506 H Lymph % (Auto) 5.3 L [place] % (Auto) Lymph # 0.8 L [place] # 1.0 H Seg Neutrophils % 86.6 H Seg Neuts % (Manual) Lymphocytes % (Manual) Monocytes % (Manual) Seg Neutrophils # 13.4 H Seg Neutrophils # Man Lymphocytes # (Manual) Monocytes # (Manual) PT INR APTT Heparin Anti-Xa Level POC ABG pH POC ABG pCO2 POC ABG pO2 Sodium Potassium Chloride 108.4 H Carbon Dioxide BUN 84 H Creatinine 3.5 H Glucose 119 H POC Glucose 114 H Lactic Acid Calcium 8.1 L Phosphorus 5.10 H Magnesium Iron TIBC AST ALT Alkaline Phosphatase Lactate Dehydrogenase Total Creatine Kinase C-Reactive Protein Total Protein Albumin Prealbumin CA 19-9 Antigen Folate PTH Intact Urine WBC (Auto) Urine Creatinine Urine Chloride Urine Total Protein Fluid Glucose Fluid Total Protein Vancomycin Trough Miscellaneous Test Crossmatch 06/07/18 06/08/18 06/08/18 12:15 05:05 05:24 WBC RBC Hgb Hct MCV MCHC RDW Plt Count Lymph % (Auto) [place] % (Auto) Lymph # [place] # Seg Neutrophils % Seg Neuts % (Manual) Lymphocytes % (Manual) Monocytes % (Manual) Seg Neutrophils # Seg Neutrophils # Man Lymphocytes # (Manual) Monocytes # (Manual) PT INR APTT Heparin Anti-Xa Level POC ABG pH POC ABG pCO2 POC ABG pO2 Sodium 148 H Potassium Chloride 112.4 H Carbon Dioxide BUN 89 H Creatinine 3.4 H Glucose 120 H POC Glucose 148 H 115 H Lactic Acid Calcium 7.9 L Phosphorus Magnesium Iron TIBC AST ALT Alkaline Phosphatase Lactate Dehydrogenase Total Creatine Kinase C-Reactive Protein Total Protein Albumin Prealbumin CA 19-9 Antigen Folate PTH Intact Urine WBC (Auto) Urine Creatinine Urine Chloride Urine Total Protein Fluid Glucose Fluid Total Protein Vancomycin Trough Miscellaneous Test Crossmatch 06/08/18 06/08/18 06/08/18 21:36 21:43 21:43 WBC RBC 2.98 L Hgb 8.8 L Hct 26.6 L MCV MCHC RDW 16.7 H Plt Count 463 H Lymph % (Auto) 7.9 L [place] % (Auto) Lymph # 0.8 L [place] # Seg Neutrophils % 84.8 H Seg Neuts % (Manual) Lymphocytes % (Manual) Monocytes % (Manual) Seg Neutrophils # 8.6 H Seg Neutrophils # Man Lymphocytes # (Manual) Monocytes # (Manual) PT INR APTT Heparin Anti-Xa Level POC ABG pH POC ABG pCO2 POC ABG pO2 Sodium Potassium Chloride Carbon Dioxide BUN Creatinine Glucose POC Glucose Lactic Acid Calcium Phosphorus Magnesium Iron TIBC AST ALT Alkaline Phosphatase Lactate Dehydrogenase 297 H Total Creatine Kinase C-Reactive Protein Total Protein Albumin Prealbumin CA 19-9 Antigen 57 H Folate PTH Intact Urine WBC (Auto) Urine Creatinine Urine Chloride Urine Total Protein Fluid Glucose Fluid Total Protein Vancomycin Trough Miscellaneous Test Crossmatch 06/09/18 06/09/18 06/09/18 00:05 05:34 05:50 WBC RBC Hgb Hct MCV MCHC RDW Plt Count Lymph % (Auto) [place] % (Auto) Lymph # [place] # Seg Neutrophils % Seg Neuts % (Manual) Lymphocytes % (Manual) Monocytes % (Manual) Seg Neutrophils # Seg Neutrophils # Man Lymphocytes # (Manual) Monocytes # (Manual) PT INR APTT Heparin Anti-Xa Level POC ABG pH POC ABG pCO2 POC ABG pO2 Sodium 153 H Potassium Chloride 117.3 H Carbon Dioxide BUN 84 H Creatinine 3.2 H Glucose 117 H POC Glucose 140 H 146 H Lactic Acid Calcium 7.9 L Phosphorus Magnesium Iron TIBC AST ALT Alkaline Phosphatase Lactate Dehydrogenase Total Creatine Kinase C-Reactive Protein Total Protein Albumin Prealbumin CA 19-9 Antigen Folate PTH Intact Urine WBC (Auto) Urine Creatinine Urine Chloride Urine Total Protein Fluid Glucose Fluid Total Protein Vancomycin Trough Miscellaneous Test Crossmatch 06/09/18 06/09/18 06/09/18 05:50 07:37 10:34 WBC RBC 2.32 L Hgb 6.8 L Hct 20.7 L MCV MCHC RDW 16.7 H Plt Count Lymph % (Auto) [place] % (Auto) Lymph # [place] # Seg Neutrophils % Seg Neuts % (Manual) Lymphocytes % (Manual) Monocytes % (Manual) Seg Neutrophils # Seg Neutrophils # Man Lymphocytes # (Manual) Monocytes # (Manual) PT INR APTT Heparin Anti-Xa Level POC ABG pH POC ABG pCO2 POC ABG pO2 Sodium 149 H Potassium Chloride 114.6 H Carbon Dioxide BUN 84 H Creatinine 3.1 H Glucose 137 H POC Glucose Lactic Acid Calcium 7.7 L Phosphorus Magnesium Iron TIBC AST ALT Alkaline Phosphatase Lactate Dehydrogenase Total Creatine Kinase C-Reactive Protein Total Protein Albumin Prealbumin CA 19-9 Antigen Folate PTH Intact Urine WBC (Auto) Urine Creatinine Urine Chloride Urine Total Protein Fluid Glucose Fluid Total Protein Vancomycin Trough Miscellaneous Test Flexitest 1 H Crossmatch 06/09/18 06/09/18 06/09/18 10:41 11:56 13:24 WBC RBC 2.43 L Hgb 7.2 L Hct 21.6 L MCV MCHC RDW 16.8 H Plt Count Lymph % (Auto) [place] % (Auto) Lymph # [place] # Seg Neutrophils % Seg Neuts % (Manual) Lymphocytes % (Manual) Monocytes % (Manual) Seg Neutrophils # Seg Neutrophils # Man Lymphocytes # (Manual) Monocytes # (Manual) PT INR APTT Heparin Anti-Xa Level POC ABG pH POC ABG pCO2 POC ABG pO2 Sodium Potassium Chloride Carbon Dioxide BUN Creatinine Glucose POC Glucose 141 H Lactic Acid Calcium Phosphorus Magnesium Iron TIBC AST ALT Alkaline Phosphatase Lactate Dehydrogenase Total Creatine Kinase C-Reactive Protein Total Protein Albumin Prealbumin CA 19-9 Antigen Folate PTH Intact Urine WBC (Auto) Urine Creatinine Urine Chloride Urine Total Protein Fluid Glucose Fluid Total Protein Vancomycin Trough Miscellaneous Test Crossmatch See Detail 06/09/18 06/09/18 06/10/18 18:18 23:13 05:26 WBC RBC Hgb Hct MCV MCHC RDW Plt Count Lymph % (Auto) [place] % (Auto) Lymph # [place] # Seg Neutrophils % Seg Neuts % (Manual) Lymphocytes % (Manual) Monocytes % (Manual) Seg Neutrophils # Seg Neutrophils # Man Lymphocytes # (Manual) Monocytes # (Manual) PT INR APTT Heparin Anti-Xa Level POC ABG pH POC ABG pCO2 POC ABG pO2 Sodium 148 H Potassium Chloride 114.7 H Carbon Dioxide 21 L BUN 79 H Creatinine 3.2 H Glucose 121 H POC Glucose 156 H 163 H Lactic Acid Calcium 7.8 L Phosphorus Magnesium 1.60 L Iron TIBC AST ALT Alkaline Phosphatase Lactate Dehydrogenase Total Creatine Kinase C-Reactive Protein Total Protein Albumin Prealbumin CA 19-9 Antigen Folate PTH Intact Urine WBC (Auto) Urine Creatinine Urine Chloride Urine Total Protein Fluid Glucose Fluid Total Protein Vancomycin Trough Miscellaneous Test Crossmatch 06/10/18 06/10/18 06/10/18 05:26 05:31 17:15 WBC 11.1 H RBC 3.07 L Hgb 9.1 L Hct 27.6 L D MCV MCHC RDW 17.4 H Plt Count Lymph % (Auto) [place] % (Auto) Lymph # [place] # Seg Neutrophils % Seg Neuts % (Manual) Lymphocytes % (Manual) Monocytes % (Manual) Seg Neutrophils # Seg Neutrophils # Man Lymphocytes # (Manual) Monocytes # (Manual) PT INR APTT Heparin Anti-Xa Level POC ABG pH POC ABG pCO2 POC ABG pO2 Sodium Potassium Chloride Carbon Dioxide BUN Creatinine Glucose POC Glucose 128 H Lactic Acid Calcium Phosphorus Magnesium Iron TIBC AST ALT Alkaline Phosphatase Lactate Dehydrogenase Total Creatine Kinase C-Reactive Protein 3.60 H Total Protein Albumin Prealbumin CA 19-9 Antigen Folate PTH Intact Urine WBC (Auto) Urine Creatinine Urine Chloride Urine Total Protein Fluid Glucose Fluid Total Protein Vancomycin Trough Miscellaneous Test Crossmatch 06/11/18 06/11/18 06/11/18 01:13 05:41 05:41 WBC 14.6 H RBC 3.40 L Hgb 9.8 L Hct 30.7 L MCV MCHC RDW 18.1 H Plt Count Lymph % (Auto) [place] % (Auto) Lymph # [place] # Seg Neutrophils % Seg Neuts % (Manual) Lymphocytes % (Manual) Monocytes % (Manual) Seg Neutrophils # Seg Neutrophils # Man Lymphocytes # (Manual) Monocytes # (Manual) PT INR APTT Heparin Anti-Xa Level POC ABG pH POC ABG pCO2 POC ABG pO2 Sodium Potassium Chloride 110.8 H Carbon Dioxide 18 L BUN 77 H Creatinine 3.0 H Glucose 116 H POC Glucose 126 H Lactic Acid Calcium 7.9 L Phosphorus Magnesium Iron TIBC AST ALT Alkaline Phosphatase Lactate Dehydrogenase Total Creatine Kinase C-Reactive Protein Total Protein Albumin Prealbumin CA 19-9 Antigen Folate PTH Intact Urine WBC (Auto) Urine Creatinine Urine Chloride Urine Total Protein Fluid Glucose Fluid Total Protein Vancomycin Trough Miscellaneous Test Crossmatch 06/11/18 06/11/18 06/11/18 06:20 07:41 07:41 WBC RBC Hgb Hct MCV MCHC RDW Plt Count Lymph % (Auto) [place] % (Auto) Lymph # [place] # Seg Neutrophils % Seg Neuts % (Manual) Lymphocytes % (Manual) Monocytes % (Manual) Seg Neutrophils # Seg Neutrophils # Man Lymphocytes # (Manual) Monocytes # (Manual) PT INR APTT Heparin Anti-Xa Level POC ABG pH POC ABG pCO2 POC ABG pO2 Sodium Potassium Chloride Carbon Dioxide BUN Creatinine Glucose POC Glucose 136 H Lactic Acid Calcium Phosphorus Magnesium Iron TIBC AST ALT Alkaline Phosphatase Lactate Dehydrogenase Total Creatine Kinase C-Reactive Protein Total Protein Albumin Prealbumin CA 19-9 Antigen Folate PTH Intact Urine WBC (Auto) 10.0 H Urine Creatinine 41.2 H Urine Chloride 49.2 L Urine Total Protein 142 H Fluid Glucose Fluid Total Protein Vancomycin Trough Miscellaneous Test Crossmatch 06/11/18 06/12/18 06/12/18 18:35 00:34 04:12 WBC RBC 3.18 L Hgb 9.5 L Hct 28.7 L MCV MCHC RDW 18.5 H Plt Count Lymph % (Auto) 8.1 L [place] % (Auto) Lymph # 0.9 L [place] # Seg Neutrophils % 84.6 H Seg Neuts % (Manual) Lymphocytes % (Manual) Monocytes % (Manual) Seg Neutrophils # 9.1 H Seg Neutrophils # Man Lymphocytes # (Manual) Monocytes # (Manual) PT INR APTT Heparin Anti-Xa Level POC ABG pH POC ABG pCO2 POC ABG pO2 Sodium Potassium Chloride Carbon Dioxide BUN Creatinine Glucose POC Glucose 125 H 129 H Lactic Acid Calcium Phosphorus Magnesium Iron TIBC AST ALT Alkaline Phosphatase Lactate Dehydrogenase Total Creatine Kinase C-Reactive Protein Total Protein Albumin Prealbumin CA 19-9 Antigen Folate PTH Intact Urine WBC (Auto) Urine Creatinine Urine Chloride Urine Total Protein Fluid Glucose Fluid Total Protein Vancomycin Trough Miscellaneous Test Crossmatch 06/12/18 06/12/18 06/12/18 04:12 06:30 11:43 WBC RBC Hgb Hct MCV MCHC RDW Plt Count Lymph % (Auto) [place] % (Auto) Lymph # [place] # Seg Neutrophils % Seg Neuts % (Manual) Lymphocytes % (Manual) Monocytes % (Manual) Seg Neutrophils # Seg Neutrophils # Man Lymphocytes # (Manual) Monocytes # (Manual) PT INR APTT Heparin Anti-Xa Level POC ABG pH POC ABG pCO2 POC ABG pO2 Sodium Potassium Chloride 108.5 H Carbon Dioxide 21 L BUN 72 H Creatinine 3.0 H Glucose 122 H POC Glucose 129 H 126 H Lactic Acid Calcium 7.8 L Phosphorus Magnesium Iron TIBC AST 45 H ALT Alkaline Phosphatase 200 H Lactate Dehydrogenase Total Creatine Kinase 34 L C-Reactive Protein Total Protein Albumin 1.7 L Prealbumin CA 19-9 Antigen Folate PTH Intact Urine WBC (Auto) Urine Creatinine Urine Chloride Urine Total Protein Fluid Glucose Fluid Total Protein Vancomycin Trough Miscellaneous Test Crossmatch 06/12/18 06/12/18 06/13/18 16:00 23:56 03:44 WBC RBC Hgb Hct MCV MCHC RDW Plt Count Lymph % (Auto) [place] % (Auto) Lymph # [place] # Seg Neutrophils % Seg Neuts % (Manual) Lymphocytes % (Manual) Monocytes % (Manual) Seg Neutrophils # Seg Neutrophils # Man Lymphocytes # (Manual) Monocytes # (Manual) PT INR APTT Heparin Anti-Xa Level POC ABG pH POC ABG pCO2 POC ABG pO2 Sodium Potassium Chloride Carbon Dioxide BUN Creatinine Glucose POC Glucose 123 H 128 H 121 H Lactic Acid Calcium Phosphorus Magnesium Iron TIBC AST ALT Alkaline Phosphatase Lactate Dehydrogenase Total Creatine Kinase C-Reactive Protein Total Protein Albumin Prealbumin CA 19-9 Antigen Folate PTH Intact Urine WBC (Auto) Urine Creatinine Urine Chloride Urine Total Protein Fluid Glucose Fluid Total Protein Vancomycin Trough Miscellaneous Test Crossmatch 06/13/18 06/13/18 06/14/18 05:59 11:29 01:08 WBC RBC Hgb Hct MCV MCHC RDW Plt Count Lymph % (Auto) [place] % (Auto) Lymph # [place] # Seg Neutrophils % Seg Neuts % (Manual) Lymphocytes % (Manual) Monocytes % (Manual) Seg Neutrophils # Seg Neutrophils # Man Lymphocytes # (Manual) Monocytes # (Manual) PT INR APTT Heparin Anti-Xa Level POC ABG pH POC ABG pCO2 POC ABG pO2 Sodium 134 L Potassium Chloride Carbon Dioxide 20 L BUN 69 H Creatinine 2.9 H Glucose 113 H POC Glucose 124 H 128 H Lactic Acid Calcium 7.8 L Phosphorus Magnesium Iron TIBC AST ALT Alkaline Phosphatase Lactate Dehydrogenase Total Creatine Kinase C-Reactive Protein Total Protein Albumin Prealbumin CA 19-9 Antigen Folate PTH Intact Urine WBC (Auto) Urine Creatinine Urine Chloride Urine Total Protein Fluid Glucose Fluid Total Protein Vancomycin Trough Miscellaneous Test Crossmatch 06/14/18 06/14/18 06/14/18 06:42 06:42 09:50 WBC 11.3 H RBC 3.02 L Hgb 8.8 L Hct 27.3 L MCV MCHC RDW 18.6 H Plt Count Lymph % (Auto) [place] % (Auto) Lymph # [place] # Seg Neutrophils % Seg Neuts % (Manual) Lymphocytes % (Manual) Monocytes % (Manual) Seg Neutrophils # Seg Neutrophils # Man Lymphocytes # (Manual) Monocytes # (Manual) PT 16.3 H INR 1.24 H APTT Heparin Anti-Xa Level POC ABG pH POC ABG pCO2 POC ABG pO2 Sodium 132 L Potassium Chloride Carbon Dioxide 19 L BUN 71 H Creatinine 3.1 H Glucose POC Glucose Lactic Acid Calcium 7.8 L Phosphorus Magnesium Iron TIBC AST ALT Alkaline Phosphatase Lactate Dehydrogenase Total Creatine Kinase C-Reactive Protein Total Protein Albumin Prealbumin CA 19-9 Antigen Folate PTH Intact Urine WBC (Auto) Urine Creatinine Urine Chloride Urine Total Protein Fluid Glucose Fluid Total Protein Vancomycin Trough Miscellaneous Test Crossmatch 06/14/18 06/14/18 06/15/18 12:31 17:04 01:18 WBC RBC Hgb Hct MCV MCHC RDW Plt Count Lymph % (Auto) [place] % (Auto) Lymph # [place] # Seg Neutrophils % Seg Neuts % (Manual) Lymphocytes % (Manual) Monocytes % (Manual) Seg Neutrophils # Seg Neutrophils # Man Lymphocytes # (Manual) Monocytes # (Manual) PT INR APTT Heparin Anti-Xa Level POC ABG pH POC ABG pCO2 POC ABG pO2 Sodium Potassium Chloride Carbon Dioxide BUN Creatinine Glucose POC Glucose 125 H 109 H 124 H Lactic Acid Calcium Phosphorus Magnesium Iron TIBC AST ALT Alkaline Phosphatase Lactate Dehydrogenase Total Creatine Kinase C-Reactive Protein Total Protein Albumin Prealbumin CA 19-9 Antigen Folate PTH Intact Urine WBC (Auto) Urine Creatinine Urine Chloride Urine Total Protein Fluid Glucose Fluid Total Protein Vancomycin Trough Miscellaneous Test Crossmatch 06/15/18 06/15/18 06/15/18 05:27 06:34 11:42 WBC RBC Hgb Hct MCV MCHC RDW Plt Count Lymph % (Auto) [place] % (Auto) Lymph # [place] # Seg Neutrophils % Seg Neuts % (Manual) Lymphocytes % (Manual) Monocytes % (Manual) Seg Neutrophils # Seg Neutrophils # Man Lymphocytes # (Manual) Monocytes # (Manual) PT INR APTT Heparin Anti-Xa Level POC ABG pH POC ABG pCO2 POC ABG pO2 Sodium 134 L Potassium Chloride Carbon Dioxide 17 L BUN 77 H Creatinine 3.2 H Glucose 110 H POC Glucose 116 H 131 H Lactic Acid Calcium 8.1 L Phosphorus 6.20 H D Magnesium Iron TIBC AST ALT Alkaline Phosphatase Lactate Dehydrogenase Total Creatine Kinase C-Reactive Protein Total Protein Albumin Prealbumin CA 19-9 Antigen Folate PTH Intact Urine WBC (Auto) Urine Creatinine Urine Chloride Urine Total Protein Fluid Glucose Fluid Total Protein Vancomycin Trough Miscellaneous Test Crossmatch 06/16/18 06/16/18 06/16/18 00:57 05:10 06:07 WBC RBC Hgb Hct MCV MCHC RDW Plt Count Lymph % (Auto) [place] % (Auto) Lymph # [place] # Seg Neutrophils % Seg Neuts % (Manual) Lymphocytes % (Manual) Monocytes % (Manual) Seg Neutrophils # Seg Neutrophils # Man Lymphocytes # (Manual) Monocytes # (Manual) PT INR APTT Heparin Anti-Xa Level POC ABG pH POC ABG pCO2 POC ABG pO2 Sodium 132 L Potassium Chloride Carbon Dioxide 19 L BUN 83 H Creatinine 3.2 H Glucose 113 H POC Glucose 137 H 109 H Lactic Acid Calcium 7.8 L Phosphorus 6.10 H Magnesium Iron TIBC AST ALT Alkaline Phosphatase Lactate Dehydrogenase Total Creatine Kinase C-Reactive Protein Total Protein Albumin Prealbumin CA 19-9 Antigen Folate PTH Intact Urine WBC (Auto) Urine Creatinine Urine Chloride Urine Total Protein Fluid Glucose Fluid Total Protein Vancomycin Trough Miscellaneous Test Crossmatch 06/16/18 06/16/18 06/17/18 11:51 15:46 00:02 WBC RBC Hgb Hct MCV MCHC RDW Plt Count Lymph % (Auto) [place] % (Auto) Lymph # [place] # Seg Neutrophils % Seg Neuts % (Manual) Lymphocytes % (Manual) Monocytes % (Manual) Seg Neutrophils # Seg Neutrophils # Man Lymphocytes # (Manual) Monocytes # (Manual) PT INR APTT Heparin Anti-Xa Level POC ABG pH POC ABG pCO2 POC ABG pO2 Sodium Potassium Chloride Carbon Dioxide BUN Creatinine Glucose POC Glucose 126 H 127 H 107 H Lactic Acid Calcium Phosphorus Magnesium Iron TIBC AST ALT Alkaline Phosphatase Lactate Dehydrogenase Total Creatine Kinase C-Reactive Protein Total Protein Albumin Prealbumin CA 19-9 Antigen Folate PTH Intact Urine WBC (Auto) Urine Creatinine Urine Chloride Urine Total Protein Fluid Glucose Fluid Total Protein Vancomycin Trough Miscellaneous Test Crossmatch 06/17/18 06/17/18 06/17/18 05:52 11:46 16:58 WBC RBC Hgb Hct MCV MCHC RDW Plt Count Lymph % (Auto) [place] % (Auto) Lymph # [place] # Seg Neutrophils % Seg Neuts % (Manual) Lymphocytes % (Manual) Monocytes % (Manual) Seg Neutrophils # Seg Neutrophils # Man Lymphocytes # (Manual) Monocytes # (Manual) PT INR APTT Heparin Anti-Xa Level POC ABG pH POC ABG pCO2 POC ABG pO2 Sodium 133 L Potassium Chloride Carbon Dioxide 17 L BUN 87 H Creatinine 3.2 H Glucose POC Glucose 129 H 140 H Lactic Acid Calcium 8.1 L Phosphorus 6.50 H Magnesium Iron TIBC AST ALT Alkaline Phosphatase Lactate Dehydrogenase Total Creatine Kinase C-Reactive Protein Total Protein Albumin Prealbumin 0.130 L CA 19-9 Antigen Folate PTH Intact Urine WBC (Auto) Urine Creatinine Urine Chloride Urine Total Protein Fluid Glucose Fluid Total Protein Vancomycin Trough Miscellaneous Test Crossmatch 06/18/18 06/18/18 06/18/18 04:04 04:04 14:15 WBC RBC 3.00 L Hgb 8.9 L Hct 26.5 L MCV MCHC RDW 17.8 H Plt Count 494 H Lymph % (Auto) 7.9 L [place] % (Auto) 9.3 H Lymph # 0.8 L [place] # 1.0 H Seg Neutrophils % 81.2 H Seg Neuts % (Manual) Lymphocytes % (Manual) Monocytes % (Manual) Seg Neutrophils # 8.6 H Seg Neutrophils # Man Lymphocytes # (Manual) Monocytes # (Manual) PT INR APTT Heparin Anti-Xa Level POC ABG pH POC ABG pCO2 POC ABG pO2 Sodium 128 L Potassium Chloride Carbon Dioxide 18 L BUN 88 H Creatinine 3.1 H Glucose 129 H POC Glucose 143 H Lactic Acid Calcium 7.8 L Phosphorus 6.20 H Magnesium Iron TIBC AST ALT Alkaline Phosphatase Lactate Dehydrogenase Total Creatine Kinase C-Reactive Protein Total Protein Albumin Prealbumin CA 19-9 Antigen Folate PTH Intact Urine WBC (Auto) Urine Creatinine Urine Chloride Urine Total Protein Fluid Glucose Fluid Total Protein Vancomycin Trough Miscellaneous Test Crossmatch 06/18/18 06/19/18 06/19/18 17:54 01:45 06:20 WBC RBC Hgb Hct MCV MCHC RDW Plt Count Lymph % (Auto) [place] % (Auto) Lymph # [place] # Seg Neutrophils % Seg Neuts % (Manual) Lymphocytes % (Manual) Monocytes % (Manual) Seg Neutrophils # Seg Neutrophils # Man Lymphocytes # (Manual) Monocytes # (Manual) PT INR APTT Heparin Anti-Xa Level POC ABG pH POC ABG pCO2 POC ABG pO2 Sodium Potassium Chloride 93.9 L Carbon Dioxide BUN 78 H Creatinine 2.8 H Glucose POC Glucose 138 H 141 H Lactic Acid Calcium 7.1 L Phosphorus 6.40 H Magnesium Iron TIBC AST ALT Alkaline Phosphatase Lactate Dehydrogenase Total Creatine Kinase C-Reactive Protein Total Protein Albumin Prealbumin CA 19-9 Antigen Folate PTH Intact Urine WBC (Auto) Urine Creatinine Urine Chloride Urine Total Protein Fluid Glucose Fluid Total Protein Vancomycin Trough Miscellaneous Test Crossmatch 06/19/18 06/19/18 06/19/18 06:49 07:59 16:32 WBC RBC Hgb Hct MCV MCHC RDW Plt Count Lymph % (Auto) [place] % (Auto) Lymph # [place] # Seg Neutrophils % Seg Neuts % (Manual) Lymphocytes % (Manual) Monocytes % (Manual) Seg Neutrophils # Seg Neutrophils # Man Lymphocytes # (Manual) Monocytes # (Manual) PT INR APTT Heparin Anti-Xa Level POC ABG pH POC ABG pCO2 POC ABG pO2 Sodium Potassium Chloride Carbon Dioxide BUN 80 H Creatinine 2.9 H Glucose 123 H POC Glucose 130 H 134 H Lactic Acid Calcium 7.7 L Phosphorus Magnesium Iron TIBC AST ALT Alkaline Phosphatase Lactate Dehydrogenase Total Creatine Kinase C-Reactive Protein Total Protein Albumin Prealbumin CA 19-9 Antigen Folate PTH Intact Urine WBC (Auto) Urine Creatinine Urine Chloride Urine Total Protein Fluid Glucose Fluid Total Protein Vancomycin Trough Miscellaneous Test Crossmatch 06/20/18 06/20/18 06/20/18 00:11 05:55 05:55 WBC RBC 2.73 L Hgb 8.0 L Hct 24.2 L MCV MCHC RDW 17.4 H Plt Count 512 H Lymph % (Auto) 12.3 L [place] % (Auto) 11.3 H Lymph # 1.1 L [place] # 1.0 H Seg Neutrophils % 74.8 H Seg Neuts % (Manual) Lymphocytes % (Manual) Monocytes % (Manual) Seg Neutrophils # Seg Neutrophils # Man Lymphocytes # (Manual) Monocytes # (Manual) PT INR APTT Heparin Anti-Xa Level POC ABG pH POC ABG pCO2 POC ABG pO2 Sodium Potassium Chloride Carbon Dioxide 32 H BUN 70 H Creatinine 2.5 H Glucose 105 H POC Glucose 131 H Lactic Acid Calcium 8.0 L Phosphorus Magnesium Iron TIBC AST ALT Alkaline Phosphatase Lactate Dehydrogenase Total Creatine Kinase C-Reactive Protein Total Protein Albumin Prealbumin CA 19-9 Antigen Folate PTH Intact Urine WBC (Auto) Urine Creatinine Urine Chloride Urine Total Protein Fluid Glucose Fluid Total Protein Vancomycin Trough Miscellaneous Test Crossmatch 06/20/18 06/20/18 06/20/18 05:55 12:10 16:01 WBC RBC Hgb Hct MCV MCHC RDW Plt Count Lymph % (Auto) [place] % (Auto) Lymph # [place] # Seg Neutrophils % Seg Neuts % (Manual) Lymphocytes % (Manual) Monocytes % (Manual) Seg Neutrophils # Seg Neutrophils # Man Lymphocytes # (Manual) Monocytes # (Manual) PT INR APTT Heparin Anti-Xa Level POC ABG pH POC ABG pCO2 POC ABG pO2 Sodium Potassium Chloride Carbon Dioxide BUN Creatinine Glucose POC Glucose 112 H 127 H 145 H Lactic Acid Calcium Phosphorus Magnesium Iron TIBC AST ALT Alkaline Phosphatase Lactate Dehydrogenase Total Creatine Kinase C-Reactive Protein Total Protein Albumin Prealbumin CA 19-9 Antigen Folate PTH Intact Urine WBC (Auto) Urine Creatinine Urine Chloride Urine Total Protein Fluid Glucose Fluid Total Protein Vancomycin Trough Miscellaneous Test Crossmatch 06/20/18 06/21/18 06/21/18 23:54 05:50 05:50 WBC RBC 2.57 L Hgb 7.7 L Hct 26.6 L MCV 104 H MCHC 29 L RDW 19.1 H Plt Count 521 H Lymph % (Auto) 10.0 L [place] % (Auto) 7.4 H Lymph # 1.0 L [place] # Seg Neutrophils % 81.3 H Seg Neuts % (Manual) Lymphocytes % (Manual) Monocytes % (Manual) Seg Neutrophils # 7.9 H Seg Neutrophils # Man Lymphocytes # (Manual) Monocytes # (Manual) PT INR APTT Heparin Anti-Xa Level POC ABG pH POC ABG pCO2 POC ABG pO2 Sodium Potassium 5.8 H D Chloride 90.3 L Carbon Dioxide 37 H BUN 57 H Creatinine 1.9 H Glucose POC Glucose 154 H Lactic Acid Calcium 7.3 L Phosphorus Magnesium Iron TIBC AST 50 H ALT Alkaline Phosphatase 190 H Lactate Dehydrogenase Total Creatine Kinase C-Reactive Protein Total Protein Albumin 1.8 L Prealbumin CA 19-9 Antigen Folate PTH Intact Urine WBC (Auto) Urine Creatinine Urine Chloride Urine Total Protein Fluid Glucose Fluid Total Protein Vancomycin Trough Miscellaneous Test Crossmatch 06/21/18 06/21/18 06/21/18 06:57 13:37 17:00 WBC RBC Hgb Hct MCV MCHC RDW Plt Count Lymph % (Auto) [place] % (Auto) Lymph # [place] # Seg Neutrophils % Seg Neuts % (Manual) Lymphocytes % (Manual) Monocytes % (Manual) Seg Neutrophils # Seg Neutrophils # Man Lymphocytes # (Manual) Monocytes # (Manual) PT INR APTT Heparin Anti-Xa Level POC ABG pH POC ABG pCO2 POC ABG pO2 Sodium Potassium Chloride Carbon Dioxide BUN Creatinine Glucose 111 H POC Glucose 141 H 148 H Lactic Acid Calcium Phosphorus Magnesium Iron TIBC AST ALT Alkaline Phosphatase Lactate Dehydrogenase Total Creatine Kinase C-Reactive Protein Total Protein Albumin Prealbumin CA 19-9 Antigen Folate PTH Intact Urine WBC (Auto) Urine Creatinine Urine Chloride Urine Total Protein Fluid Glucose Fluid Total Protein Vancomycin Trough Miscellaneous Test Crossmatch 06/21/18 06/21/18 06/22/18 17:27 22:01 06:02 WBC RBC Hgb Hct MCV MCHC RDW Plt Count Lymph % (Auto) [place] % (Auto) Lymph # [place] # Seg Neutrophils % Seg Neuts % (Manual) Lymphocytes % (Manual) Monocytes % (Manual) Seg Neutrophils # Seg Neutrophils # Man Lymphocytes # (Manual) Monocytes # (Manual) PT INR APTT Heparin Anti-Xa Level POC ABG pH POC ABG pCO2 POC ABG pO2 Sodium Potassium 3.2 L Chloride Carbon Dioxide 39 H BUN 53 H Creatinine 1.9 H Glucose 1348 H* POC Glucose 130 H 122 H Lactic Acid Calcium 7.5 L Phosphorus Magnesium Iron TIBC AST ALT Alkaline Phosphatase Lactate Dehydrogenase Total Creatine Kinase C-Reactive Protein Total Protein Albumin Prealbumin CA 19-9 Antigen Folate PTH Intact Urine WBC (Auto) Urine Creatinine Urine Chloride Urine Total Protein Fluid Glucose Fluid Total Protein Vancomycin Trough Miscellaneous Test Crossmatch 06/22/18 06/22/18 06/22/18 06:16 07:26 07:48 WBC RBC Hgb Hct MCV MCHC RDW Plt Count Lymph % (Auto) [place] % (Auto) Lymph # [place] # Seg Neutrophils % Seg Neuts % (Manual) Lymphocytes % (Manual) Monocytes % (Manual) Seg Neutrophils # Seg Neutrophils # Man Lymphocytes # (Manual) Monocytes # (Manual) PT INR APTT Heparin Anti-Xa Level POC ABG pH POC ABG pCO2 POC ABG pO2 Sodium Potassium Chloride Carbon Dioxide 37 H BUN 57 H Creatinine 1.9 H Glucose 147 H POC Glucose 148 H 153 H Lactic Acid Calcium 8.3 L Phosphorus Magnesium Iron TIBC AST ALT Alkaline Phosphatase Lactate Dehydrogenase Total Creatine Kinase C-Reactive Protein Total Protein Albumin Prealbumin CA 19-9 Antigen Folate PTH Intact Urine WBC (Auto) Urine Creatinine Urine Chloride Urine Total Protein Fluid Glucose Fluid Total Protein Vancomycin Trough Miscellaneous Test Crossmatch 10/06/3006/22/18 06/22/18 11:26 16:26 23:57 WBC RBC Hgb Hct MCV MCHC RDW Plt Count Lymph % (Auto) [place] % (Auto) Lymph # [place] # Seg Neutrophils % Seg Neuts % (Manual) Lymphocytes % (Manual) Monocytes % (Manual) Seg Neutrophils # Seg Neutrophils # Man Lymphocytes # (Manual) Monocytes # (Manual) PT INR APTT Heparin Anti-Xa Level POC ABG pH POC ABG pCO2 POC ABG pO2 Sodium Potassium Chloride Carbon Dioxide BUN Creatinine Glucose POC Glucose 121 H 122 H 180 H Lactic Acid Calcium Phosphorus Magnesium Iron TIBC AST ALT Alkaline Phosphatase Lactate Dehydrogenase Total Creatine Kinase C-Reactive Protein Total Protein Albumin Prealbumin CA 19-9 Antigen Folate PTH Intact Urine WBC (Auto) Urine Creatinine Urine Chloride Urine Total Protein Fluid Glucose Fluid Total Protein Vancomycin Trough Miscellaneous Test Crossmatch 06/22/18 06/23/18 06/23/18 23:57 00:30 01:40 WBC RBC Hgb Hct MCV MCHC RDW Plt Count Lymph % (Auto) [place] % (Auto) Lymph # [place] # Seg Neutrophils % Seg Neuts % (Manual) Lymphocytes % (Manual) Monocytes % (Manual) Seg Neutrophils # Seg Neutrophils # Man Lymphocytes # (Manual) Monocytes # (Manual) PT INR APTT Heparin Anti-Xa Level POC ABG pH 7.195 L 7.235 L POC ABG pCO2 105.2 H 95.7 H POC ABG pO2 Sodium Potassium Chloride Carbon Dioxide BUN Creatinine Glucose POC Glucose Lactic Acid Calcium Phosphorus Magnesium Iron TIBC AST ALT Alkaline Phosphatase Lactate Dehydrogenase Total Creatine Kinase C-Reactive Protein Total Protein Albumin Prealbumin CA 19-9 Antigen Folate PTH Intact Urine WBC (Auto) Urine Creatinine 99.7 H Urine Chloride 10.0 L Urine Total Protein 272 H Fluid Glucose Fluid Total Protein Vancomycin Trough Miscellaneous Test Crossmatch 06/23/18 06/23/18 06/23/18 05:58 07:20 08:31 WBC 16.0 H RBC 2.35 L Hgb 6.7 L Hct 22.3 L MCV 95 H MCHC 30 L RDW 18.5 H Plt Count 512 H Lymph % (Auto) [place] % (Auto) Lymph # [place] # Seg Neutrophils % Seg Neuts % (Manual) Lymphocytes % (Manual) Monocytes % (Manual) Seg Neutrophils # Seg Neutrophils # Man Lymphocytes # (Manual) Monocytes # (Manual) PT INR APTT Heparin Anti-Xa Level POC ABG pH POC ABG pCO2 POC ABG pO2 Sodium Potassium Chloride Carbon Dioxide BUN Creatinine Glucose POC Glucose 116 H 123 H Lactic Acid Calcium Phosphorus Magnesium Iron TIBC AST ALT Alkaline Phosphatase Lactate Dehydrogenase Total Creatine Kinase C-Reactive Protein Total Protein Albumin Prealbumin CA 19-9 Antigen Folate PTH Intact Urine WBC (Auto) Urine Creatinine Urine Chloride Urine Total Protein Fluid Glucose Fluid Total Protein Vancomycin Trough Miscellaneous Test Crossmatch 06/23/18 06/23/18 06/23/18 08:31 08:34 08:34 WBC RBC Hgb Hct MCV MCHC RDW Plt Count 485 H Lymph % (Auto) [place] % (Auto) Lymph # [place] # Seg Neutrophils % Seg Neuts % (Manual) Lymphocytes % (Manual) Monocytes % (Manual) Seg Neutrophils # Seg Neutrophils # Man Lymphocytes # (Manual) Monocytes # (Manual) PT 15.2 H INR 1.15 H APTT 41.9 H Heparin Anti-Xa Level POC ABG pH POC ABG pCO2 POC ABG pO2 Sodium 148 H Potassium Chloride Carbon Dioxide BUN 59 H Creatinine 2.2 H Glucose 106 H POC Glucose Lactic Acid Calcium 8.2 L Phosphorus 6.60 H Magnesium Iron TIBC AST 46 H ALT Alkaline Phosphatase 188 H Lactate Dehydrogenase Total Creatine Kinase C-Reactive Protein Total Protein Albumin 1.6 L Prealbumin CA 19-9 Antigen Folate PTH Intact Urine WBC (Auto) Urine Creatinine Urine Chloride Urine Total Protein Fluid Glucose Fluid Total Protein Vancomycin Trough Miscellaneous Test Crossmatch 06/23/18 06/23/18 06/23/18 09:29 09:40 09:43 WBC RBC Hgb Hct MCV MCHC RDW Plt Count Lymph % (Auto) [place] % (Auto) Lymph # [place] # Seg Neutrophils % Seg Neuts % (Manual) Lymphocytes % (Manual) Monocytes % (Manual) Seg Neutrophils # Seg Neutrophils # Man Lymphocytes # (Manual) Monocytes # (Manual) PT INR APTT Heparin Anti-Xa Level POC ABG pH 7.521 H POC ABG pCO2 53.6 H 48.4 H POC ABG pO2 37 L 181 H Sodium Potassium Chloride Carbon Dioxide BUN Creatinine Glucose POC Glucose Lactic Acid Calcium Phosphorus Magnesium Iron TIBC AST ALT Alkaline Phosphatase Lactate Dehydrogenase Total Creatine Kinase C-Reactive Protein Total Protein Albumin Prealbumin CA 19-9 Antigen Folate PTH Intact Urine WBC (Auto) Urine Creatinine Urine Chloride Urine Total Protein Fluid Glucose Fluid Total Protein Vancomycin Trough Miscellaneous Test Crossmatch See Detail 10/11/18 10/11/18 10/11/18 17:03 17:03 18:33 WBC 22.2 H RBC 2.85 L Hgb 8.4 L Hct 25.6 L MCV MCHC RDW 17.6 H Plt Count 515 H Lymph % (Auto) [place] % (Auto) Lymph # [place] # Seg Neutrophils % Seg Neuts % (Manual) Lymphocytes % (Manual) Monocytes % (Manual) Seg Neutrophils # Seg Neutrophils # Man Lymphocytes # (Manual) Monocytes # (Manual) PT INR APTT Heparin Anti-Xa Level 0.13 L POC ABG pH POC ABG pCO2 POC ABG pO2 Sodium Potassium Chloride Carbon Dioxide BUN Creatinine Glucose POC Glucose < 40 L Lactic Acid Calcium Phosphorus Magnesium Iron TIBC AST ALT Alkaline Phosphatase Lactate Dehydrogenase Total Creatine Kinase C-Reactive Protein Total Protein Albumin Prealbumin CA 19-9 Antigen Folate PTH Intact Urine WBC (Auto) Urine Creatinine Urine Chloride Urine Total Protein Fluid Glucose Fluid Total Protein Vancomycin Trough Miscellaneous Test Crossmatch 06/23/18 06/23/18 06/24/18 23:53 Unknown 00:30 WBC RBC Hgb Hct MCV MCHC RDW Plt Count Lymph % (Auto) [place] % (Auto) Lymph # [place] # Seg Neutrophils % Seg Neuts % (Manual) Lymphocytes % (Manual) Monocytes % (Manual) Seg Neutrophils # Seg Neutrophils # Man Lymphocytes # (Manual) Monocytes # (Manual) PT INR APTT Heparin Anti-Xa Level POC ABG pH POC ABG pCO2 POC ABG pO2 Sodium 148 H Potassium Chloride Carbon Dioxide 36 H BUN 57 H Creatinine 1.9 H Glucose POC Glucose 140 H Lactic Acid Calcium 8.3 L Phosphorus Magnesium Iron TIBC AST ALT Alkaline Phosphatase Lactate Dehydrogenase Total Creatine Kinase C-Reactive Protein Total Protein Albumin Prealbumin CA 19-9 Antigen Folate PTH Intact Urine WBC (Auto) 8.0 H Urine Creatinine Urine Chloride Urine Total Protein Fluid Glucose Fluid Total Protein Vancomycin Trough Miscellaneous Test Crossmatch 06/24/18 06/24/18 06/24/18 00:40 04:30 04:30 WBC 26.9 H RBC 2.79 L Hgb 8.1 L Hct 25.0 L MCV MCHC RDW 17.5 H Plt Count 487 H Lymph % (Auto) [place] % (Auto) Lymph # [place] # Seg Neutrophils % Seg Neuts % (Manual) Lymphocytes % (Manual) 6.0 L Monocytes % (Manual) 8.0 H Seg Neutrophils # Seg Neutrophils # Man 16.9 H Lymphocytes # (Manual) Monocytes # (Manual) 2.2 H PT INR APTT Heparin Anti-Xa Level 0.13 L POC ABG pH POC ABG pCO2 POC ABG pO2 Sodium 151 H Potassium Chloride Carbon Dioxide 36 H D BUN 74 H Creatinine 2.9 H Glucose 126 H POC Glucose Lactic Acid Calcium 8.2 L Phosphorus Magnesium Iron TIBC AST ALT Alkaline Phosphatase Lactate Dehydrogenase Total Creatine Kinase C-Reactive Protein Total Protein Albumin Prealbumin CA 19-9 Antigen Folate PTH Intact Urine WBC (Auto) Urine Creatinine Urine Chloride Urine Total Protein Fluid Glucose Fluid Total Protein Vancomycin Trough Miscellaneous Test Crossmatch 06/24/18 06/24/18 06/24/18 04:33 06:41 08:00 WBC RBC Hgb Hct MCV MCHC RDW Plt Count Lymph % (Auto) [place] % (Auto) Lymph # [place] # Seg Neutrophils % Seg Neuts % (Manual) Lymphocytes % (Manual) Monocytes % (Manual) Seg Neutrophils # Seg Neutrophils # Man Lymphocytes # (Manual) Monocytes # (Manual) PT INR APTT Heparin Anti-Xa Level 0.21 L POC ABG pH 7.517 H POC ABG pCO2 50.9 H POC ABG pO2 170 H Sodium Potassium Chloride Carbon Dioxide BUN Creatinine Glucose POC Glucose 140 H Lactic Acid Calcium Phosphorus Magnesium Iron TIBC AST ALT Alkaline Phosphatase Lactate Dehydrogenase Total Creatine Kinase C-Reactive Protein Total Protein Albumin Prealbumin CA 19-9 Antigen Folate PTH Intact Urine WBC (Auto) Urine Creatinine Urine Chloride Urine Total Protein Fluid Glucose Fluid Total Protein Vancomycin Trough Miscellaneous Test Crossmatch 06/24/18 06/24/18 06/24/18 12:27 14:20 18:46 WBC RBC Hgb Hct MCV MCHC RDW Plt Count Lymph % (Auto) [place] % (Auto) Lymph # [place] # Seg Neutrophils % Seg Neuts % (Manual) Lymphocytes % (Manual) Monocytes % (Manual) Seg Neutrophils # Seg Neutrophils # Man Lymphocytes # (Manual) Monocytes # (Manual) PT INR APTT Heparin Anti-Xa Level 0.28 L POC ABG pH POC ABG pCO2 POC ABG pO2 Sodium Potassium Chloride Carbon Dioxide BUN Creatinine Glucose POC Glucose 216 H 182 H Lactic Acid Calcium Phosphorus Magnesium Iron TIBC AST ALT Alkaline Phosphatase Lactate Dehydrogenase Total Creatine Kinase C-Reactive Protein Total Protein Albumin Prealbumin CA 19-9 Antigen Folate PTH Intact Urine WBC (Auto) Urine Creatinine Urine Chloride Urine Total Protein Fluid Glucose Fluid Total Protein Vancomycin Trough Miscellaneous Test Crossmatch 06/24/18 06/25/18 06/25/18 23:43 04:29 04:37 WBC RBC Hgb 8.1 L Hct 25.6 L MCV MCHC RDW Plt Count Lymph % (Auto) [place] % (Auto) Lymph # [place] # Seg Neutrophils % Seg Neuts % (Manual) Lymphocytes % (Manual) Monocytes % (Manual) Seg Neutrophils # Seg Neutrophils # Man Lymphocytes # (Manual) Monocytes # (Manual) PT INR APTT Heparin Anti-Xa Level POC ABG pH 7.534 H POC ABG pCO2 POC ABG pO2 161 H Sodium Potassium Chloride Carbon Dioxide BUN Creatinine Glucose POC Glucose 217 H Lactic Acid Calcium Phosphorus Magnesium Iron TIBC AST ALT Alkaline Phosphatase Lactate Dehydrogenase Total Creatine Kinase C-Reactive Protein Total Protein Albumin Prealbumin CA 19-9 Antigen Folate PTH Intact Urine WBC (Auto) Urine Creatinine Urine Chloride Urine Total Protein Fluid Glucose Fluid Total Protein Vancomycin Trough Miscellaneous Test Crossmatch 06/25/18 06/25/18 06/25/18 04:37 05:48 12:11 WBC RBC Hgb Hct MCV MCHC RDW Plt Count Lymph % (Auto) [place] % (Auto) Lymph # [place] # Seg Neutrophils % Seg Neuts % (Manual) Lymphocytes % (Manual) Monocytes % (Manual) Seg Neutrophils # Seg Neutrophils # Man Lymphocytes # (Manual) Monocytes # (Manual) PT INR APTT Heparin Anti-Xa Level POC ABG pH POC ABG pCO2 POC ABG pO2 Sodium Potassium 2.6 L* D Chloride Carbon Dioxide 32 H BUN 75 H Creatinine 3.1 H Glucose 244 H POC Glucose 225 H 252 H Lactic Acid Calcium Phosphorus Magnesium Iron TIBC AST ALT Alkaline Phosphatase Lactate Dehydrogenase Total Creatine Kinase C-Reactive Protein Total Protein Albumin Prealbumin CA 19-9 Antigen Folate PTH Intact Urine WBC (Auto) Urine Creatinine Urine Chloride Urine Total Protein Fluid Glucose Fluid Total Protein Vancomycin Trough Miscellaneous Test Crossmatch 06/25/18 06/25/18 06/25/18 15:58 18:12 20:30 WBC RBC Hgb 8.5 L Hct 27.6 L MCV MCHC RDW Plt Count Lymph % (Auto) [place] % (Auto) Lymph # [place] # Seg Neutrophils % Seg Neuts % (Manual) Lymphocytes % (Manual) Monocytes % (Manual) Seg Neutrophils # Seg Neutrophils # Man Lymphocytes # (Manual) Monocytes # (Manual) PT INR APTT Heparin Anti-Xa Level POC ABG pH POC ABG pCO2 POC ABG pO2 Sodium 148 H Potassium 2.4 L* Chloride Carbon Dioxide 31 H BUN 79 H Creatinine 3.0 H Glucose 152 H POC Glucose 199 H Lactic Acid Calcium 8.3 L Phosphorus Magnesium Iron TIBC AST ALT Alkaline Phosphatase Lactate Dehydrogenase Total Creatine Kinase C-Reactive Protein Total Protein Albumin Prealbumin CA 19-9 Antigen Folate PTH Intact Urine WBC (Auto) Urine Creatinine Urine Chloride Urine Total Protein Fluid Glucose Fluid Total Protein Vancomycin Trough Miscellaneous Test Crossmatch 06/26/18 06/26/18 06/26/18 04:00 04:00 04:00 WBC 26.2 H RBC 3.16 L Hgb 9.1 L Hct 28.8 L MCV MCHC RDW 18.2 H Plt Count Lymph % (Auto) [place] % (Auto) Lymph # [place] # Seg Neutrophils % Seg Neuts % (Manual) Lymphocytes % (Manual) 2.0 L Monocytes % (Manual) Seg Neutrophils # Seg Neutrophils # Man 11.5 H Lymphocytes # (Manual) 0.5 L Monocytes # (Manual) PT INR APTT Heparin Anti-Xa Level POC ABG pH POC ABG pCO2 POC ABG pO2 Sodium 146 H Potassium 3.2 L D 3.3 L Chloride 109.0 H 108.2 H Carbon Dioxide BUN 74 H 75 H Creatinine 2.9 H 2.9 H Glucose 62 L 60 L POC Glucose Lactic Acid Calcium 7.7 L 7.9 L Phosphorus Magnesium 1.60 L Iron TIBC AST ALT Alkaline Phosphatase 173 H Lactate Dehydrogenase Total Creatine Kinase C-Reactive Protein Total Protein 6.1 L Albumin 1.4 L Prealbumin CA 19-9 Antigen Folate PTH Intact Urine WBC (Auto) Urine Creatinine Urine Chloride Urine Total Protein Fluid Glucose Fluid Total Protein Vancomycin Trough Miscellaneous Test Crossmatch 06/26/18 06/26/18 06/26/18 05:57 05:59 06:22 WBC RBC Hgb Hct MCV MCHC RDW Plt Count Lymph % (Auto) [place] % (Auto) Lymph # [place] # Seg Neutrophils % Seg Neuts % (Manual) Lymphocytes % (Manual) Monocytes % (Manual) Seg Neutrophils # Seg Neutrophils # Man Lymphocytes # (Manual) Monocytes # (Manual) PT INR APTT Heparin Anti-Xa Level POC ABG pH 7.269 L POC ABG pCO2 68.0 H POC ABG pO2 73 L Sodium Potassium Chloride Carbon Dioxide BUN Creatinine Glucose POC Glucose 59 L 130 H Lactic Acid Calcium Phosphorus Magnesium Iron TIBC AST ALT Alkaline Phosphatase Lactate Dehydrogenase Total Creatine Kinase C-Reactive Protein Total Protein Albumin Prealbumin CA 19-9 Antigen Folate PTH Intact Urine WBC (Auto) Urine Creatinine Urine Chloride Urine Total Protein Fluid Glucose Fluid Total Protein Vancomycin Trough Miscellaneous Test Crossmatch 06/27/18 06/27/18 06/27/18 03:34 05:20 05:20 WBC RBC Hgb 6.7 L Hct 21.2 L D MCV MCHC RDW Plt Count Lymph % (Auto) [place] % (Auto) Lymph # [place] # Seg Neutrophils % Seg Neuts % (Manual) Lymphocytes % (Manual) Monocytes % (Manual) Seg Neutrophils # Seg Neutrophils # Man Lymphocytes # (Manual) Monocytes # (Manual) PT INR APTT Heparin Anti-Xa Level POC ABG pH 7.251 L POC ABG pCO2 63.7 H POC ABG pO2 157 H Sodium Potassium 5.9 H D Chloride Carbon Dioxide BUN 87 H Creatinine 4.4 H D Glucose 128 H POC Glucose Lactic Acid Calcium 8.1 L Phosphorus Magnesium Iron TIBC AST ALT Alkaline Phosphatase Lactate Dehydrogenase Total Creatine Kinase C-Reactive Protein Total Protein Albumin Prealbumin CA 19-9 Antigen Folate PTH Intact Urine WBC (Auto) Urine Creatinine Urine Chloride Urine Total Protein Fluid Glucose Fluid Total Protein Vancomycin Trough Miscellaneous Test Crossmatch 06/27/18 06/27/18 06/27/18 09:05 10:56 10:56 WBC RBC Hgb 6.9 L Hct 21.6 L MCV MCHC RDW Plt Count Lymph % (Auto) [place] % (Auto) Lymph # [place] # Seg Neutrophils % Seg Neuts % (Manual) Lymphocytes % (Manual) Monocytes % (Manual) Seg Neutrophils # Seg Neutrophils # Man Lymphocytes # (Manual) Monocytes # (Manual) PT INR APTT Heparin Anti-Xa Level POC ABG pH POC ABG pCO2 POC ABG pO2 Sodium Potassium 5.7 H Chloride Carbon Dioxide BUN Creatinine Glucose POC Glucose Lactic Acid Calcium Phosphorus Magnesium Iron TIBC AST ALT Alkaline Phosphatase Lactate Dehydrogenase Total Creatine Kinase C-Reactive Protein Total Protein Albumin Prealbumin CA 19-9 Antigen Folate PTH Intact Urine WBC (Auto) Urine Creatinine Urine Chloride Urine Total Protein Fluid Glucose Fluid Total Protein Vancomycin Trough Miscellaneous Test Crossmatch See Detail 10/06/27/18 06/27/18 10:56 12:07 17:33 WBC 25.2 H RBC 2.37 L Hgb 6.7 L Hct 21.6 L MCV MCHC 31 L RDW 18.0 H Plt Count Lymph % (Auto) [place] % (Auto) Lymph # [place] # Seg Neutrophils % Seg Neuts % (Manual) 97.0 H Lymphocytes % (Manual) 1.0 L Monocytes % (Manual) Seg Neutrophils # Seg Neutrophils # Man 24.4 H Lymphocytes # (Manual) 0.3 L Monocytes # (Manual) PT INR APTT Heparin Anti-Xa Level POC ABG pH POC ABG pCO2 POC ABG pO2 Sodium Potassium Chloride Carbon Dioxide BUN Creatinine Glucose POC Glucose 156 H 123 H Lactic Acid Calcium Phosphorus Magnesium Iron TIBC AST ALT Alkaline Phosphatase Lactate Dehydrogenase Total Creatine Kinase C-Reactive Protein Total Protein Albumin Prealbumin CA 19-9 Antigen Folate PTH Intact Urine WBC (Auto) Urine Creatinine Urine Chloride Urine Total Protein Fluid Glucose Fluid Total Protein Vancomycin Trough Miscellaneous Test Crossmatch 06/28/18 06/28/18 06/28/18 00:40 04:54 05:52 WBC RBC Hgb Hct MCV MCHC RDW Plt Count Lymph % (Auto) [place] % (Auto) Lymph # [place] # Seg Neutrophils % Seg Neuts % (Manual) Lymphocytes % (Manual) Monocytes % (Manual) Seg Neutrophils # Seg Neutrophils # Man Lymphocytes # (Manual) Monocytes # (Manual) PT INR APTT Heparin Anti-Xa Level POC ABG pH POC ABG pCO2 POC ABG pO2 Sodium Potassium Chloride Carbon Dioxide BUN 57 H Creatinine 3.3 H Glucose 107 H POC Glucose 127 H 117 H Lactic Acid Calcium Phosphorus Magnesium Iron TIBC AST ALT Alkaline Phosphatase Lactate Dehydrogenase Total Creatine Kinase C-Reactive Protein Total Protein Albumin Prealbumin CA 19-9 Antigen Folate PTH Intact Urine WBC (Auto) Urine Creatinine Urine Chloride Urine Total Protein Fluid Glucose Fluid Total Protein Vancomycin Trough Miscellaneous Test Crossmatch 06/28/18 06/29/18 06/29/18 09:24 04:18 04:18 WBC 21.3 H RBC 2.61 L Hgb 7.5 L 7.6 L Hct 23.0 L 23.1 L MCV MCHC RDW 17.5 H Plt Count Lymph % (Auto) [place] % (Auto) Lymph # [place] # Seg Neutrophils % Seg Neuts % (Manual) Lymphocytes % (Manual) Monocytes % (Manual) Seg Neutrophils # Seg Neutrophils # Man Lymphocytes # (Manual) Monocytes # (Manual) PT INR APTT Heparin Anti-Xa Level POC ABG pH POC ABG pCO2 POC ABG pO2 Sodium 136 L Potassium Chloride Carbon Dioxide BUN 69 H Creatinine 3.8 H Glucose POC Glucose Lactic Acid Calcium Phosphorus 5.10 H D Magnesium Iron TIBC AST ALT Alkaline Phosphatase Lactate Dehydrogenase Total Creatine Kinase C-Reactive Protein Total Protein Albumin Prealbumin CA 19-9 Antigen Folate PTH Intact Urine WBC (Auto) Urine Creatinine Urine Chloride Urine Total Protein Fluid Glucose Fluid Total Protein Vancomycin Trough Miscellaneous Test Crossmatch 06/29/18 04:28 WBC RBC Hgb Hct MCV MCHC RDW Plt Count Lymph % (Auto) [place] % (Auto) Lymph # [place] # Seg Neutrophils % Seg Neuts % (Manual) Lymphocytes % (Manual) Monocytes % (Manual) Seg Neutrophils # Seg Neutrophils # Man Lymphocytes # (Manual) Monocytes # (Manual) PT INR APTT Heparin Anti-Xa Level POC ABG pH POC ABG pCO2 46.9 H POC ABG pO2 Sodium Potassium Chloride Carbon Dioxide BUN Creatinine Glucose POC Glucose Lactic Acid Calcium Phosphorus Magnesium Iron TIBC AST ALT Alkaline Phosphatase Lactate Dehydrogenase Total Creatine Kinase C-Reactive Protein Total Protein Albumin Prealbumin CA 19-9 Antigen Folate PTH Intact Urine WBC (Auto) Urine Creatinine Urine Chloride Urine Total Protein Fluid Glucose Fluid Total Protein Vancomycin Trough Miscellaneous Test Crossmatch Allied health notes reviewed: nursing
--- NOTE | 2018-06-29 12:39 | Progress Note ---
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 recommend remove external support of machines as by definition brain is clinical 06/29/18 12:37 PM if family does not document their consent get ethics consult tried to contact the sister Objective - Vital Sign Vital Signs - 12hr 06/29/18 06/29/18 06/29/18 00:53 01:00 01:30 Temperature Pulse Rate 86 80 84 Pulse Rate [ From Monitor] Pulse Rate [ Left Dorsalis Pedis] Respiratory 21 30 H Rate Blood Pressure 93/60 88/56 97/65 O2 Sat by Pulse 95 96 Oximetry 06/29/18 06/29/18 06/29/18 02:00 02:30 03:00 Temperature Pulse Rate 86 83 84 Pulse Rate [ From Monitor] Pulse Rate [ Left Dorsalis Pedis] Respiratory 30 H 22 22 Rate Blood Pressure 99/64 93/60 98/63 O2 Sat by Pulse 97 96 96 Oximetry 06/29/18 06/29/18 06/29/18 03:30 04:00 04:30 Temperature 97 F L Pulse Rate 84 82 84 Pulse Rate [ 80 From Monitor] Pulse Rate [ Left Dorsalis Pedis] Respiratory 22 16 30 H Rate Blood Pressure 97/65 93/59 106/71 O2 Sat by Pulse 97 96 96 Oximetry 06/29/18 06/29/18 06/29/18 05:00 05:30 05:58 Temperature Pulse Rate 84 83 79 Pulse Rate [ From Monitor] Pulse Rate [ Left Dorsalis Pedis] Respiratory 30 H 30 H Rate Blood Pressure 97/63 100/66 102/67 O2 Sat by Pulse 99 100 Oximetry 06/29/18 06/29/18 06/29/18 06:00 06:30 07:00 Temperature Pulse Rate 79 79 78 Pulse Rate [ From Monitor] Pulse Rate [ Left Dorsalis Pedis] Respiratory 30 H 30 H 30 H Rate Blood Pressure 102/68 107/74 107/72 O2 Sat by Pulse 99 99 99 Oximetry 06/29/18 06/29/18 06/29/18 07:30 07:38 08:00 Temperature 97.4 F L Pulse Rate 82 78 75 Pulse Rate [ From Monitor] Pulse Rate [ 75 Left Dorsalis Pedis] Respiratory 25 H 30 H Rate Blood Pressure 134/93 134/93 105/72 O2 Sat by Pulse 100 99 98 Oximetry 06/29/18 06/29/18 06/29/18 08:30 09:00 09:30 Temperature Pulse Rate 73 73 73 Pulse Rate [ From Monitor] Pulse Rate [ Left Dorsalis Pedis] Respiratory 30 H 30 H 30 H Rate Blood Pressure 88/59 90/62 90/60 O2 Sat by Pulse 96 96 96 Oximetry 06/29/18 06/29/18 10:00 11:27 Temperature Pulse Rate 75 75 Pulse Rate [ From Monitor] Pulse Rate [ Left Dorsalis Pedis] Respiratory 30 H Rate Blood Pressure 100/69 100/69 O2 Sat by Pulse 97 97 Oximetry - Laboratory Findings CBC and BMP: 06/29/18 04:18 06/29/18 04:18 Abnormal Lab Findings: Abnormal Labs 05/13/18 05/13/18 05/13/18 04:27 04:27 19:39 WBC RBC 3.13 L Hgb 9.4 L Hct 26.8 L MCV MCHC 35 H RDW Plt Count Lymph % (Auto) [place] % (Auto) 9.6 H Lymph # [place] # Seg Neutrophils % Seg Neuts % (Manual) Lymphocytes % (Manual) Monocytes % (Manual) Seg Neutrophils # Seg Neutrophils # Man Lymphocytes # (Manual) Monocytes # (Manual) PT INR APTT Heparin Anti-Xa Level POC ABG pH POC ABG pCO2 POC ABG pO2 Sodium 132 L Potassium 5.5 H Chloride 94.1 L Carbon Dioxide 19 L BUN 72 H Creatinine 14.4 H Glucose POC Glucose Lactic Acid Calcium Phosphorus Magnesium Iron TIBC AST ALT Alkaline Phosphatase Lactate Dehydrogenase Total Creatine Kinase C-Reactive Protein Total Protein Albumin 2.8 L Prealbumin CA 19-9 Antigen Folate PTH Intact Urine WBC (Auto) Urine Creatinine 66.0 H Urine Chloride 27.8 L Urine Total Protein 24 H Fluid Glucose Fluid Total Protein Vancomycin Trough Miscellaneous Test Crossmatch 05/13/18 05/14/18 05/14/18 20:00 05:05 05:05 WBC RBC Hgb Hct MCV MCHC RDW Plt Count Lymph % (Auto) [place] % (Auto) Lymph # [place] # Seg Neutrophils % Seg Neuts % (Manual) Lymphocytes % (Manual) Monocytes % (Manual) Seg Neutrophils # Seg Neutrophils # Man Lymphocytes # (Manual) Monocytes # (Manual) PT INR APTT Heparin Anti-Xa Level POC ABG pH POC ABG pCO2 POC ABG pO2 Sodium 132 L 131 L Potassium 5.2 H 5.8 H Chloride 93.0 L 95.6 L Carbon Dioxide 19 L 20 L BUN 74 H 81 H Creatinine 15.0 H 16.6 H Glucose 134 H 127 H POC Glucose Lactic Acid Calcium 8.2 L 7.9 L Phosphorus 6.30 H Magnesium Iron TIBC AST ALT Alkaline Phosphatase Lactate Dehydrogenase Total Creatine Kinase 236 H C-Reactive Protein Total Protein Albumin Prealbumin CA 19-9 Antigen Folate PTH Intact 65.37 H Urine WBC (Auto) Urine Creatinine Urine Chloride Urine Total Protein Fluid Glucose Fluid Total Protein Vancomycin Trough Miscellaneous Test Crossmatch 05/14/18 05/14/18 05/14/18 09:28 10:56 13:29 WBC RBC Hgb Hct MCV MCHC RDW Plt Count Lymph % (Auto) [place] % (Auto) Lymph # [place] # Seg Neutrophils % Seg Neuts % (Manual) Lymphocytes % (Manual) Monocytes % (Manual) Seg Neutrophils # Seg Neutrophils # Man Lymphocytes # (Manual) Monocytes # (Manual) PT INR APTT 38.2 H Heparin Anti-Xa Level POC ABG pH POC ABG pCO2 POC ABG pO2 Sodium Potassium Chloride Carbon Dioxide BUN Creatinine Glucose POC Glucose 127 H 126 H Lactic Acid Calcium Phosphorus Magnesium Iron TIBC AST ALT Alkaline Phosphatase Lactate Dehydrogenase Total Creatine Kinase C-Reactive Protein Total Protein Albumin Prealbumin CA 19-9 Antigen Folate PTH Intact Urine WBC (Auto) Urine Creatinine Urine Chloride Urine Total Protein Fluid Glucose Fluid Total Protein Vancomycin Trough Miscellaneous Test Crossmatch 05/15/18 05/15/18 05/16/18 08:06 08:06 07:02 WBC RBC 2.84 L 2.74 L Hgb 8.5 L 8.5 L Hct 24.2 L 23.5 L MCV MCHC 35 H 36 H RDW Plt Count Lymph % (Auto) [place] % (Auto) 10.4 H 11.0 H Lymph # 1.1 L [place] # 0.9 H Seg Neutrophils % 72.6 H Seg Neuts % (Manual) Lymphocytes % (Manual) Monocytes % (Manual) Seg Neutrophils # Seg Neutrophils # Man Lymphocytes # (Manual) Monocytes # (Manual) PT INR APTT Heparin Anti-Xa Level POC ABG pH POC ABG pCO2 POC ABG pO2 Sodium Potassium Chloride Carbon Dioxide 19 L BUN 66 H Creatinine 12.0 H Glucose 115 H POC Glucose Lactic Acid Calcium 8.1 L Phosphorus Magnesium Iron TIBC AST ALT Alkaline Phosphatase Lactate Dehydrogenase Total Creatine Kinase C-Reactive Protein Total Protein Albumin Prealbumin CA 19-9 Antigen Folate PTH Intact Urine WBC (Auto) Urine Creatinine Urine Chloride Urine Total Protein Fluid Glucose Fluid Total Protein Vancomycin Trough Miscellaneous Test Crossmatch 05/16/18 05/16/18 05/17/18 07:02 07:02 05:08 WBC RBC 2.78 L Hgb 8.2 L Hct 23.9 L MCV MCHC RDW Plt Count Lymph % (Auto) [place] % (Auto) 13.9 H Lymph # [place] # 0.9 H Seg Neutrophils % Seg Neuts % (Manual) Lymphocytes % (Manual) Monocytes % (Manual) Seg Neutrophils # Seg Neutrophils # Man Lymphocytes # (Manual) Monocytes # (Manual) PT INR APTT Heparin Anti-Xa Level POC ABG pH POC ABG pCO2 POC ABG pO2 Sodium Potassium Chloride Carbon Dioxide BUN 28 H Creatinine 2.4 H D Glucose POC Glucose Lactic Acid Calcium 8.3 L Phosphorus Magnesium 1.50 L Iron 24 L TIBC 160 L AST ALT Alkaline Phosphatase Lactate Dehydrogenase Total Creatine Kinase C-Reactive Protein Total Protein Albumin Prealbumin CA 19-9 Antigen Folate 5.39 L PTH Intact Urine WBC (Auto) Urine Creatinine Urine Chloride Urine Total Protein Fluid Glucose Fluid Total Protein Vancomycin Trough Miscellaneous Test Crossmatch 05/17/18 05/18/18 05/18/18 05:08 05:57 05:57 WBC RBC 2.79 L Hgb 8.3 L Hct 24.0 L MCV MCHC 35 H RDW Plt Count Lymph % (Auto) [place] % (Auto) 11.8 H Lymph # [place] # 0.9 H Seg Neutrophils % Seg Neuts % (Manual) Lymphocytes % (Manual) Monocytes % (Manual) Seg Neutrophils # Seg Neutrophils # Man Lymphocytes # (Manual) Monocytes # (Manual) PT INR APTT Heparin Anti-Xa Level POC ABG pH POC ABG pCO2 POC ABG pO2 Sodium Potassium Chloride Carbon Dioxide BUN Creatinine Glucose POC Glucose Lactic Acid Calcium 7.7 L 8.0 L Phosphorus Magnesium 1.60 L Iron TIBC AST ALT Alkaline Phosphatase Lactate Dehydrogenase Total Creatine Kinase C-Reactive Protein Total Protein Albumin Prealbumin CA 19-9 Antigen Folate PTH Intact Urine WBC (Auto) Urine Creatinine Urine Chloride Urine Total Protein Fluid Glucose Fluid Total Protein Vancomycin Trough Miscellaneous Test Crossmatch 05/19/18 05/19/18 05/20/18 05:33 05:33 05:38 WBC RBC 2.95 L Hgb 8.8 L Hct 25.8 L MCV MCHC RDW Plt Count Lymph % (Auto) 10.1 L [place] % (Auto) Lymph # 1.1 L [place] # Seg Neutrophils % 85.2 H Seg Neuts % (Manual) Lymphocytes % (Manual) Monocytes % (Manual) Seg Neutrophils # 9.0 H Seg Neutrophils # Man Lymphocytes # (Manual) Monocytes # (Manual) PT INR APTT Heparin Anti-Xa Level POC ABG pH POC ABG pCO2 POC ABG pO2 Sodium 135 L Potassium Chloride Carbon Dioxide BUN Creatinine Glucose 132 H POC Glucose Lactic Acid Calcium 7.8 L 8.3 L Phosphorus Magnesium 1.40 L Iron TIBC AST ALT Alkaline Phosphatase Lactate Dehydrogenase Total Creatine Kinase C-Reactive Protein Total Protein Albumin Prealbumin CA 19-9 Antigen Folate PTH Intact Urine WBC (Auto) Urine Creatinine Urine Chloride Urine Total Protein Fluid Glucose Fluid Total Protein Vancomycin Trough Miscellaneous Test Crossmatch 05/21/18 05/21/18 05/22/18 04:46 15:30 06:49 WBC 20.0 H RBC 2.70 L Hgb 7.8 L Hct 23.3 L MCV MCHC RDW Plt Count Lymph % (Auto) [place] % (Auto) Lymph # [place] # Seg Neutrophils % Seg Neuts % (Manual) 85.0 H Lymphocytes % (Manual) 4.0 L Monocytes % (Manual) Seg Neutrophils # Seg Neutrophils # Man 17.0 H Lymphocytes # (Manual) 0.8 L Monocytes # (Manual) PT INR APTT Heparin Anti-Xa Level POC ABG pH POC ABG pCO2 POC ABG pO2 Sodium 135 L Potassium 3.5 L Chloride Carbon Dioxide 21 L BUN 22 H Creatinine Glucose POC Glucose Lactic Acid Calcium 8.1 L Phosphorus Magnesium Iron TIBC AST ALT Alkaline Phosphatase Lactate Dehydrogenase Total Creatine Kinase C-Reactive Protein Total Protein Albumin Prealbumin CA 19-9 Antigen Folate PTH Intact Urine WBC (Auto) 28.0 H Urine Creatinine Urine Chloride Urine Total Protein Fluid Glucose Fluid Total Protein Vancomycin Trough Miscellaneous Test Crossmatch 05/22/18 05/22/18 05/23/18 06:49 11:23 09:03 WBC RBC Hgb Hct MCV MCHC RDW Plt Count Lymph % (Auto) [place] % (Auto) Lymph # [place] # Seg Neutrophils % Seg Neuts % (Manual) Lymphocytes % (Manual) Monocytes % (Manual) Seg Neutrophils # Seg Neutrophils # Man Lymphocytes # (Manual) Monocytes # (Manual) PT INR APTT Heparin Anti-Xa Level POC ABG pH POC ABG pCO2 POC ABG pO2 Sodium 134 L Potassium 3.5 L Chloride Carbon Dioxide 21 L BUN 35 H 36 H Creatinine 1.7 H Glucose 107 H POC Glucose Lactic Acid Calcium 7.9 L Phosphorus Magnesium 2.50 H Iron TIBC AST ALT Alkaline Phosphatase Lactate Dehydrogenase Total Creatine Kinase C-Reactive Protein Total Protein Albumin Prealbumin CA 19-9 Antigen Folate PTH Intact Urine WBC (Auto) Urine Creatinine Urine Chloride Urine Total Protein Fluid Glucose Fluid Total Protein Vancomycin Trough Miscellaneous Test Crossmatch See Detail 05/23/18 05/23/18 05/23/18 09:03 09:03 17:34 WBC 26.3 H RBC 3.57 L Hgb 10.4 L Hct 31.1 L D MCV MCHC RDW Plt Count Lymph % (Auto) [place] % (Auto) Lymph # [place] # Seg Neutrophils % Seg Neuts % (Manual) Lymphocytes % (Manual) Monocytes % (Manual) Seg Neutrophils # Seg Neutrophils # Man Lymphocytes # (Manual) Monocytes # (Manual) PT 18.3 H INR 1.43 H APTT 40.0 H Heparin Anti-Xa Level POC ABG pH POC ABG pCO2 POC ABG pO2 Sodium Potassium Chloride Carbon Dioxide BUN Creatinine Glucose POC Glucose 108 H Lactic Acid Calcium Phosphorus Magnesium Iron TIBC AST ALT Alkaline Phosphatase Lactate Dehydrogenase Total Creatine Kinase C-Reactive Protein Total Protein Albumin Prealbumin CA 19-9 Antigen Folate PTH Intact Urine WBC (Auto) Urine Creatinine Urine Chloride Urine Total Protein Fluid Glucose Fluid Total Protein Vancomycin Trough Miscellaneous Test Crossmatch 05/23/18 05/24/18 05/24/18 21:14 04:43 08:04 WBC RBC Hgb Hct MCV MCHC RDW Plt Count Lymph % (Auto) [place] % (Auto) Lymph # [place] # Seg Neutrophils % Seg Neuts % (Manual) Lymphocytes % (Manual) Monocytes % (Manual) Seg Neutrophils # Seg Neutrophils # Man Lymphocytes # (Manual) Monocytes # (Manual) PT INR APTT Heparin Anti-Xa Level POC ABG pH POC ABG pCO2 POC ABG pO2 Sodium 146 H Potassium Chloride 108.6 H Carbon Dioxide BUN 33 H Creatinine Glucose 109 H POC Glucose 110 H 106 H Lactic Acid Calcium 8.3 L Phosphorus Magnesium 2.50 H Iron TIBC AST ALT Alkaline Phosphatase Lactate Dehydrogenase Total Creatine Kinase C-Reactive Protein Total Protein Albumin Prealbumin CA 19-9 Antigen Folate PTH Intact Urine WBC (Auto) Urine Creatinine Urine Chloride Urine Total Protein Fluid Glucose Fluid Total Protein Vancomycin Trough Miscellaneous Test Crossmatch 05/25/18 05/25/18 05/25/18 05:42 05:49 19:50 WBC RBC Hgb Hct MCV MCHC RDW Plt Count Lymph % (Auto) [place] % (Auto) Lymph # [place] # Seg Neutrophils % Seg Neuts % (Manual) Lymphocytes % (Manual) Monocytes % (Manual) Seg Neutrophils # Seg Neutrophils # Man Lymphocytes # (Manual) Monocytes # (Manual) PT INR APTT Heparin Anti-Xa Level POC ABG pH POC ABG pCO2 POC ABG pO2 Sodium 150 H Potassium Chloride 112.5 H Carbon Dioxide BUN 34 H Creatinine Glucose 102 H POC Glucose 107 H Lactic Acid Calcium Phosphorus Magnesium Iron TIBC AST ALT Alkaline Phosphatase Lactate Dehydrogenase Total Creatine Kinase C-Reactive Protein 34.50 H Total Protein Albumin Prealbumin CA 19-9 Antigen Folate PTH Intact Urine WBC (Auto) Urine Creatinine Urine Chloride Urine Total Protein Fluid Glucose Fluid Total Protein Vancomycin Trough Miscellaneous Test Crossmatch 05/25/18 05/25/18 05/25/18 19:50 21:05 22:46 WBC RBC Hgb Hct MCV MCHC RDW Plt Count Lymph % (Auto) [place] % (Auto) Lymph # [place] # Seg Neutrophils % Seg Neuts % (Manual) Lymphocytes % (Manual) Monocytes % (Manual) Seg Neutrophils # Seg Neutrophils # Man Lymphocytes # (Manual) Monocytes # (Manual) PT INR APTT Heparin Anti-Xa Level POC ABG pH 7.483 H POC ABG pCO2 24.0 L POC ABG pO2 72 L Sodium Potassium Chloride Carbon Dioxide BUN Creatinine Glucose POC Glucose Lactic Acid 5.90 H* Calcium Phosphorus Magnesium Iron TIBC AST ALT Alkaline Phosphatase Lactate Dehydrogenase Total Creatine Kinase C-Reactive Protein Total Protein Albumin Prealbumin CA 19-9 Antigen Folate PTH Intact Urine WBC (Auto) Urine Creatinine Urine Chloride Urine Total Protein Fluid Glucose Fluid Total Protein Vancomycin Trough 25.1 H Miscellaneous Test Crossmatch 05/25/18 05/26/18 05/26/18 22:46 00:21 00:51 WBC RBC Hgb Hct MCV MCHC RDW Plt Count Lymph % (Auto) [place] % (Auto) Lymph # [place] # Seg Neutrophils % Seg Neuts % (Manual) Lymphocytes % (Manual) Monocytes % (Manual) Seg Neutrophils # Seg Neutrophils # Man Lymphocytes # (Manual) Monocytes # (Manual) PT INR APTT Heparin Anti-Xa Level POC ABG pH POC ABG pCO2 POC ABG pO2 Sodium Potassium Chloride Carbon Dioxide BUN Creatinine Glucose POC Glucose 133 H Lactic Acid 8.10 H* 6.20 H* Calcium Phosphorus Magnesium Iron TIBC AST ALT Alkaline Phosphatase Lactate Dehydrogenase Total Creatine Kinase C-Reactive Protein Total Protein Albumin Prealbumin CA 19-9 Antigen Folate PTH Intact Urine WBC (Auto) Urine Creatinine Urine Chloride Urine Total Protein Fluid Glucose Fluid Total Protein Vancomycin Trough Miscellaneous Test Crossmatch 05/26/18 05/26/18 05/26/18 01:13 02:24 02:24 WBC 18.7 H RBC Hgb 11.6 L Hct MCV MCHC RDW Plt Count Lymph % (Auto) [place] % (Auto) Lymph # [place] # Seg Neutrophils % Seg Neuts % (Manual) Lymphocytes % (Manual) Monocytes % (Manual) Seg Neutrophils # Seg Neutrophils # Man Lymphocytes # (Manual) Monocytes # (Manual) PT INR APTT Heparin Anti-Xa Level POC ABG pH POC ABG pCO2 POC ABG pO2 Sodium 147 H Potassium 6.2 H* D Chloride 111.9 H Carbon Dioxide 19 L BUN 80 H Creatinine 5.1 H D Glucose 112 H POC Glucose Lactic Acid 5.20 H* Calcium 6.7 L D Phosphorus Magnesium Iron TIBC AST ALT Alkaline Phosphatase Lactate Dehydrogenase Total Creatine Kinase C-Reactive Protein Total Protein Albumin Prealbumin CA 19-9 Antigen Folate PTH Intact Urine WBC (Auto) Urine Creatinine Urine Chloride Urine Total Protein Fluid Glucose Fluid Total Protein Vancomycin Trough Miscellaneous Test Crossmatch 05/26/18 05/26/18 05/26/18 04:20 04:20 05:39 WBC RBC Hgb Hct MCV MCHC RDW Plt Count Lymph % (Auto) [place] % (Auto) Lymph # [place] # Seg Neutrophils % Seg Neuts % (Manual) Lymphocytes % (Manual) Monocytes % (Manual) Seg Neutrophils # Seg Neutrophils # Man Lymphocytes # (Manual) Monocytes # (Manual) PT INR APTT Heparin Anti-Xa Level POC ABG pH POC ABG pCO2 POC ABG pO2 Sodium 150 H Potassium Chloride 110.0 H Carbon Dioxide 19 L BUN 66 H Creatinine Glucose 166 H POC Glucose 187 H Lactic Acid 5.10 H* Calcium 6.9 L Phosphorus 6.70 H D Magnesium Iron TIBC AST ALT Alkaline Phosphatase Lactate Dehydrogenase Total Creatine Kinase C-Reactive Protein Total Protein Albumin Prealbumin CA 19-9 Antigen Folate PTH Intact Urine WBC (Auto) Urine Creatinine Urine Chloride Urine Total Protein Fluid Glucose Fluid Total Protein Vancomycin Trough Miscellaneous Test Crossmatch 05/26/18 05/26/18 05/26/18 06:02 07:29 11:00 WBC RBC Hgb Hct MCV MCHC RDW Plt Count Lymph % (Auto) [place] % (Auto) Lymph # [place] # Seg Neutrophils % Seg Neuts % (Manual) Lymphocytes % (Manual) Monocytes % (Manual) Seg Neutrophils # Seg Neutrophils # Man Lymphocytes # (Manual) Monocytes # (Manual) PT INR APTT Heparin Anti-Xa Level POC ABG pH POC ABG pCO2 28.8 L POC ABG pO2 Sodium Potassium Chloride Carbon Dioxide BUN Creatinine Glucose POC Glucose Lactic Acid 4.80 H* 3.80 H* Calcium Phosphorus Magnesium Iron TIBC AST ALT Alkaline Phosphatase Lactate Dehydrogenase Total Creatine Kinase C-Reactive Protein Total Protein Albumin Prealbumin CA 19-9 Antigen Folate PTH Intact Urine WBC (Auto) Urine Creatinine Urine Chloride Urine Total Protein Fluid Glucose Fluid Total Protein Vancomycin Trough Miscellaneous Test Crossmatch 05/26/18 05/26/18 05/26/18 11:01 12:28 18:00 WBC RBC Hgb Hct MCV MCHC RDW Plt Count Lymph % (Auto) [place] % (Auto) Lymph # [place] # Seg Neutrophils % Seg Neuts % (Manual) Lymphocytes % (Manual) Monocytes % (Manual) Seg Neutrophils # Seg Neutrophils # Man Lymphocytes # (Manual) Monocytes # (Manual) PT INR APTT Heparin Anti-Xa Level POC ABG pH POC ABG pCO2 POC ABG pO2 Sodium 150 H 151 H Potassium 5.3 H D 6.1 H* Chloride 110.3 H 117.0 H Carbon Dioxide 21 L 20 L BUN 75 H 77 H Creatinine 4.3 H D 4.6 H Glucose 161 H POC Glucose 114 H Lactic Acid Calcium 7.5 L 6.7 L Phosphorus Magnesium Iron TIBC AST 1041 H ALT 406 H Alkaline Phosphatase 281 H Lactate Dehydrogenase Total Creatine Kinase C-Reactive Protein Total Protein 4.4 L Albumin 1.3 L Prealbumin CA 19-9 Antigen Folate PTH Intact Urine WBC (Auto) Urine Creatinine Urine Chloride Urine Total Protein Fluid Glucose Fluid Total Protein Vancomycin Trough Miscellaneous Test Crossmatch 05/26/18 05/26/18 05/27/18 18:02 19:17 01:01 WBC 21.7 H RBC 2.70 L Hgb 7.8 L D Hct 24.6 L D MCV MCHC RDW 15.3 H Plt Count Lymph % (Auto) [place] % (Auto) Lymph # [place] # Seg Neutrophils % Seg Neuts % (Manual) 94.0 H Lymphocytes % (Manual) 3.0 L Monocytes % (Manual) Seg Neutrophils # Seg Neutrophils # Man 20.4 H Lymphocytes # (Manual) 0.7 L Monocytes # (Manual) PT INR APTT Heparin Anti-Xa Level POC ABG pH 7.159 L 7.205 L POC ABG pCO2 54.5 H 53.0 H POC ABG pO2 252 H Sodium Potassium Chloride Carbon Dioxide BUN Creatinine Glucose POC Glucose Lactic Acid Calcium Phosphorus Magnesium Iron TIBC AST ALT Alkaline Phosphatase Lactate Dehydrogenase Total Creatine Kinase C-Reactive Protein Total Protein Albumin Prealbumin CA 19-9 Antigen Folate PTH Intact Urine WBC (Auto) Urine Creatinine Urine Chloride Urine Total Protein Fluid Glucose Fluid Total Protein Vancomycin Trough Miscellaneous Test Crossmatch 05/27/18 05/27/18 05/27/18 05:15 05:15 06:11 WBC 24.9 H RBC 2.86 L Hgb 8.1 L Hct 25.9 L MCV MCHC RDW 15.5 H Plt Count Lymph % (Auto) [place] % (Auto) Lymph # [place] # Seg Neutrophils % Seg Neuts % (Manual) Lymphocytes % (Manual) Monocytes % (Manual) Seg Neutrophils # Seg Neutrophils # Man Lymphocytes # (Manual) Monocytes # (Manual) PT INR APTT Heparin Anti-Xa Level POC ABG pH 7.265 L POC ABG pCO2 46.2 H POC ABG pO2 111 H Sodium 149 H Potassium 6.9 H* Chloride 113.5 H Carbon Dioxide BUN 89 H Creatinine 5.2 H Glucose 118 H POC Glucose Lactic Acid Calcium 7.0 L Phosphorus 9.70 H D Magnesium Iron TIBC AST 876 H ALT 408 H Alkaline Phosphatase Lactate Dehydrogenase Total Creatine Kinase C-Reactive Protein Total Protein 5.2 L Albumin 1.5 L Prealbumin CA 19-9 Antigen Folate PTH Intact Urine WBC (Auto) Urine Creatinine Urine Chloride Urine Total Protein Fluid Glucose Fluid Total Protein Vancomycin Trough Miscellaneous Test Crossmatch 05/27/18 05/27/18 05/27/18 08:48 10:22 10:22 WBC RBC Hgb Hct MCV MCHC RDW Plt Count Lymph % (Auto) [place] % (Auto) Lymph # [place] # Seg Neutrophils % Seg Neuts % (Manual) Lymphocytes % (Manual) Monocytes % (Manual) Seg Neutrophils # Seg Neutrophils # Man Lymphocytes # (Manual) Monocytes # (Manual) PT INR APTT Heparin Anti-Xa Level POC ABG pH POC ABG pCO2 POC ABG pO2 Sodium 146 H Potassium 6.1 H* Chloride 108.2 H Carbon Dioxide 21 L BUN 88 H Creatinine 5.6 H Glucose 163 H POC Glucose 164 H Lactic Acid Calcium 6.7 L Phosphorus Magnesium Iron TIBC AST ALT Alkaline Phosphatase Lactate Dehydrogenase Total Creatine Kinase C-Reactive Protein 40.70 H Total Protein Albumin Prealbumin CA 19-9 Antigen Folate PTH Intact Urine WBC (Auto) Urine Creatinine Urine Chloride Urine Total Protein Fluid Glucose Fluid Total Protein Vancomycin Trough Miscellaneous Test Crossmatch 05/27/18 05/27/18 05/27/18 13:02 17:39 23:27 WBC RBC Hgb Hct MCV MCHC RDW Plt Count Lymph % (Auto) [place] % (Auto) Lymph # [place] # Seg Neutrophils % Seg Neuts % (Manual) Lymphocytes % (Manual) Monocytes % (Manual) Seg Neutrophils # Seg Neutrophils # Man Lymphocytes # (Manual) Monocytes # (Manual) PT INR APTT Heparin Anti-Xa Level POC ABG pH POC ABG pCO2 POC ABG pO2 Sodium Potassium Chloride Carbon Dioxide BUN Creatinine Glucose POC Glucose 59 L 132 H Lactic Acid Calcium Phosphorus Magnesium Iron TIBC AST ALT Alkaline Phosphatase Lactate Dehydrogenase Total Creatine Kinase C-Reactive Protein Total Protein Albumin Prealbumin CA 19-9 Antigen Folate PTH Intact Urine WBC (Auto) Urine Creatinine Urine Chloride Urine Total Protein Fluid Glucose Fluid Total Protein Vancomycin Trough Miscellaneous Test Flexitest 1 H Crossmatch 05/27/18 05/28/18 05/28/18 Unknown 04:32 05:00 WBC RBC Hgb Hct MCV MCHC RDW Plt Count Lymph % (Auto) [place] % (Auto) Lymph # [place] # Seg Neutrophils % Seg Neuts % (Manual) Lymphocytes % (Manual) Monocytes % (Manual) Seg Neutrophils # Seg Neutrophils # Man Lymphocytes # (Manual) Monocytes # (Manual) PT INR APTT Heparin Anti-Xa Level POC ABG pH POC ABG pCO2 POC ABG pO2 134 H Sodium Potassium Chloride Carbon Dioxide BUN 69 H Creatinine 4.4 H Glucose 118 H POC Glucose Lactic Acid Calcium 8.0 L D Phosphorus 6.80 H D Magnesium Iron TIBC AST ALT Alkaline Phosphatase Lactate Dehydrogenase Total Creatine Kinase C-Reactive Protein Total Protein Albumin Prealbumin CA 19-9 Antigen Folate PTH Intact Urine WBC (Auto) 120.0 H Urine Creatinine Urine Chloride Urine Total Protein Fluid Glucose Fluid Total Protein Vancomycin Trough Miscellaneous Test Crossmatch 05/28/18 05/28/18 05/28/18 05:00 05:27 13:04 WBC 26.5 H RBC 2.69 L Hgb 7.7 L Hct 23.6 L MCV MCHC RDW Plt Count Lymph % (Auto) [place] % (Auto) Lymph # [place] # Seg Neutrophils % Seg Neuts % (Manual) 96.0 H Lymphocytes % (Manual) 0 L Monocytes % (Manual) Seg Neutrophils # Seg Neutrophils # Man 25.4 H Lymphocytes # (Manual) 0.0 L Monocytes # (Manual) PT INR APTT Heparin Anti-Xa Level POC ABG pH POC ABG pCO2 POC ABG pO2 Sodium Potassium Chloride Carbon Dioxide BUN Creatinine Glucose POC Glucose 128 H 155 H Lactic Acid Calcium Phosphorus Magnesium Iron TIBC AST ALT Alkaline Phosphatase Lactate Dehydrogenase Total Creatine Kinase C-Reactive Protein Total Protein Albumin Prealbumin CA 19-9 Antigen Folate PTH Intact Urine WBC (Auto) Urine Creatinine Urine Chloride Urine Total Protein Fluid Glucose Fluid Total Protein Vancomycin Trough Miscellaneous Test Crossmatch 05/28/18 05/29/18 05/29/18 17:56 03:35 04:00 WBC RBC Hgb Hct MCV MCHC RDW Plt Count Lymph % (Auto) [place] % (Auto) Lymph # [place] # Seg Neutrophils % Seg Neuts % (Manual) Lymphocytes % (Manual) Monocytes % (Manual) Seg Neutrophils # Seg Neutrophils # Man Lymphocytes # (Manual) Monocytes # (Manual) PT INR APTT Heparin Anti-Xa Level POC ABG pH 7.471 H POC ABG pCO2 POC ABG pO2 78 L Sodium Potassium Chloride Carbon Dioxide BUN 50 H Creatinine 3.9 H Glucose POC Glucose 110 H Lactic Acid Calcium 7.7 L Phosphorus Magnesium 1.50 L Iron TIBC AST 218 H ALT 204 H Alkaline Phosphatase Lactate Dehydrogenase Total Creatine Kinase C-Reactive Protein Total Protein 5.4 L Albumin 1.6 L Prealbumin CA 19-9 Antigen Folate PTH Intact Urine WBC (Auto) Urine Creatinine Urine Chloride Urine Total Protein Fluid Glucose Fluid Total Protein Vancomycin Trough Miscellaneous Test Crossmatch 05/29/18 05/29/18 05/30/18 11:51 23:56 04:54 WBC RBC Hgb Hct MCV MCHC RDW Plt Count Lymph % (Auto) [place] % (Auto) Lymph # [place] # Seg Neutrophils % Seg Neuts % (Manual) Lymphocytes % (Manual) Monocytes % (Manual) Seg Neutrophils # Seg Neutrophils # Man Lymphocytes # (Manual) Monocytes # (Manual) PT INR APTT Heparin Anti-Xa Level POC ABG pH POC ABG pCO2 POC ABG pO2 Sodium Potassium Chloride Carbon Dioxide BUN Creatinine Glucose POC Glucose 131 H 119 H 115 H Lactic Acid Calcium Phosphorus Magnesium Iron TIBC AST ALT Alkaline Phosphatase Lactate Dehydrogenase Total Creatine Kinase C-Reactive Protein Total Protein Albumin Prealbumin CA 19-9 Antigen Folate PTH Intact Urine WBC (Auto) Urine Creatinine Urine Chloride Urine Total Protein Fluid Glucose Fluid Total Protein Vancomycin Trough Miscellaneous Test Crossmatch 05/30/18 05/30/18 05/30/18 05:07 05:15 05:15 WBC 16.2 H RBC 2.53 L Hgb 7.4 L Hct 21.9 L MCV MCHC RDW Plt Count Lymph % (Auto) [place] % (Auto) Lymph # [place] # Seg Neutrophils % Seg Neuts % (Manual) Lymphocytes % (Manual) Monocytes % (Manual) Seg Neutrophils # Seg Neutrophils # Man Lymphocytes # (Manual) Monocytes # (Manual) PT INR APTT Heparin Anti-Xa Level POC ABG pH POC ABG pCO2 34.5 L POC ABG pO2 133 H Sodium 135 L Potassium Chloride 97.5 L Carbon Dioxide BUN 69 H Creatinine 5.4 H Glucose 105 H POC Glucose Lactic Acid Calcium 7.5 L Phosphorus 5.30 H D Magnesium Iron TIBC AST ALT Alkaline Phosphatase Lactate Dehydrogenase Total Creatine Kinase C-Reactive Protein Total Protein Albumin Prealbumin CA 19-9 Antigen Folate PTH Intact Urine WBC (Auto) Urine Creatinine Urine Chloride Urine Total Protein Fluid Glucose Fluid Total Protein Vancomycin Trough Miscellaneous Test Crossmatch 05/30/18 05/30/18 05/31/18 12:13 17:10 04:50 WBC 18.7 H RBC 2.86 L Hgb 8.2 L Hct 24.8 L MCV MCHC RDW Plt Count Lymph % (Auto) [place] % (Auto) Lymph # [place] # Seg Neutrophils % Seg Neuts % (Manual) 91.0 H Lymphocytes % (Manual) 2.0 L Monocytes % (Manual) Seg Neutrophils # Seg Neutrophils # Man 17.0 H Lymphocytes # (Manual) 0.4 L Monocytes # (Manual) PT INR APTT Heparin Anti-Xa Level POC ABG pH POC ABG pCO2 POC ABG pO2 Sodium Potassium Chloride Carbon Dioxide BUN Creatinine Glucose POC Glucose 132 H 122 H Lactic Acid Calcium Phosphorus Magnesium Iron TIBC AST ALT Alkaline Phosphatase Lactate Dehydrogenase Total Creatine Kinase C-Reactive Protein Total Protein Albumin Prealbumin CA 19-9 Antigen Folate PTH Intact Urine WBC (Auto) Urine Creatinine Urine Chloride Urine Total Protein Fluid Glucose Fluid Total Protein Vancomycin Trough Miscellaneous Test Crossmatch 05/31/18 05/31/18 05/31/18 04:50 05:45 11:37 WBC RBC Hgb Hct MCV MCHC RDW Plt Count Lymph % (Auto) [place] % (Auto) Lymph # [place] # Seg Neutrophils % Seg Neuts % (Manual) Lymphocytes % (Manual) Monocytes % (Manual) Seg Neutrophils # Seg Neutrophils # Man Lymphocytes # (Manual) Monocytes # (Manual) PT INR APTT Heparin Anti-Xa Level POC ABG pH POC ABG pCO2 POC ABG pO2 Sodium 132 L Potassium Chloride 92.4 L Carbon Dioxide BUN 77 H Creatinine 5.9 H Glucose POC Glucose 111 H 136 H Lactic Acid Calcium 7.3 L Phosphorus 6.40 H D Magnesium Iron TIBC AST ALT Alkaline Phosphatase Lactate Dehydrogenase Total Creatine Kinase C-Reactive Protein Total Protein Albumin Prealbumin CA 19-9 Antigen Folate PTH Intact Urine WBC (Auto) Urine Creatinine Urine Chloride Urine Total Protein Fluid Glucose Fluid Total Protein Vancomycin Trough Miscellaneous Test Crossmatch 05/31/18 06/01/18 06/01/18 17:52 00:09 04:00 WBC RBC Hgb Hct MCV MCHC RDW Plt Count Lymph % (Auto) [place] % (Auto) Lymph # [place] # Seg Neutrophils % Seg Neuts % (Manual) Lymphocytes % (Manual) Monocytes % (Manual) Seg Neutrophils # Seg Neutrophils # Man Lymphocytes # (Manual) Monocytes # (Manual) PT INR APTT Heparin Anti-Xa Level POC ABG pH POC ABG pCO2 POC ABG pO2 Sodium Potassium Chloride 97.5 L Carbon Dioxide BUN 49 H Creatinine 4.2 H Glucose 104 H POC Glucose 115 H 114 H Lactic Acid Calcium 7.3 L Phosphorus 4.70 H D Magnesium Iron TIBC AST ALT Alkaline Phosphatase Lactate Dehydrogenase Total Creatine Kinase C-Reactive Protein Total Protein Albumin Prealbumin CA 19-9 Antigen Folate PTH Intact Urine WBC (Auto) Urine Creatinine Urine Chloride Urine Total Protein Fluid Glucose Fluid Total Protein Vancomycin Trough Miscellaneous Test Crossmatch 06/01/18 06/01/18 06/02/18 11:10 17:56 00:15 WBC RBC Hgb Hct MCV MCHC RDW Plt Count Lymph % (Auto) [place] % (Auto) Lymph # [place] # Seg Neutrophils % Seg Neuts % (Manual) Lymphocytes % (Manual) Monocytes % (Manual) Seg Neutrophils # Seg Neutrophils # Man Lymphocytes # (Manual) Monocytes # (Manual) PT INR APTT Heparin Anti-Xa Level POC ABG pH POC ABG pCO2 POC ABG pO2 Sodium Potassium Chloride Carbon Dioxide BUN Creatinine Glucose POC Glucose 123 H 126 H 135 H Lactic Acid Calcium Phosphorus Magnesium Iron TIBC AST ALT Alkaline Phosphatase Lactate Dehydrogenase Total Creatine Kinase C-Reactive Protein Total Protein Albumin Prealbumin CA 19-9 Antigen Folate PTH Intact Urine WBC (Auto) Urine Creatinine Urine Chloride Urine Total Protein Fluid Glucose Fluid Total Protein Vancomycin Trough Miscellaneous Test Crossmatch 06/02/18 06/02/18 06/02/18 05:23 12:42 13:05 WBC RBC Hgb Hct MCV MCHC RDW Plt Count Lymph % (Auto) [place] % (Auto) Lymph # [place] # Seg Neutrophils % Seg Neuts % (Manual) Lymphocytes % (Manual) Monocytes % (Manual) Seg Neutrophils # Seg Neutrophils # Man Lymphocytes # (Manual) Monocytes # (Manual) PT 17.1 H INR 1.34 H APTT Heparin Anti-Xa Level POC ABG pH POC ABG pCO2 POC ABG pO2 Sodium Potassium Chloride Carbon Dioxide BUN Creatinine Glucose POC Glucose 135 H 142 H Lactic Acid Calcium Phosphorus Magnesium Iron TIBC AST ALT Alkaline Phosphatase Lactate Dehydrogenase Total Creatine Kinase C-Reactive Protein Total Protein Albumin Prealbumin CA 19-9 Antigen Folate PTH Intact Urine WBC (Auto) Urine Creatinine Urine Chloride Urine Total Protein Fluid Glucose Fluid Total Protein Vancomycin Trough Miscellaneous Test Crossmatch 06/02/18 06/02/18 06/03/18 Unknown Unknown 00:54 WBC 20.8 H RBC 2.67 L Hgb 7.7 L Hct 23.0 L MCV MCHC RDW Plt Count 500 H Lymph % (Auto) [place] % (Auto) Lymph # [place] # Seg Neutrophils % Seg Neuts % (Manual) Lymphocytes % (Manual) Monocytes % (Manual) Seg Neutrophils # Seg Neutrophils # Man Lymphocytes # (Manual) Monocytes # (Manual) PT INR APTT Heparin Anti-Xa Level POC ABG pH POC ABG pCO2 POC ABG pO2 Sodium 136 L Potassium 3.5 L Chloride 96.9 L Carbon Dioxide BUN 62 H Creatinine 4.9 H Glucose 133 H POC Glucose 125 H Lactic Acid Calcium 7.2 L Phosphorus 5.00 H Magnesium Iron TIBC AST 46 H ALT 66 H Alkaline Phosphatase Lactate Dehydrogenase Total Creatine Kinase C-Reactive Protein Total Protein 5.7 L Albumin 1.5 L Prealbumin CA 19-9 Antigen Folate PTH Intact Urine WBC (Auto) Urine Creatinine Urine Chloride Urine Total Protein Fluid Glucose Fluid Total Protein Vancomycin Trough Miscellaneous Test Crossmatch 06/03/18 06/03/18 06/03/18 03:31 09:18 09:18 WBC RBC Hgb Hct MCV MCHC RDW Plt Count Lymph % (Auto) [place] % (Auto) Lymph # [place] # Seg Neutrophils % Seg Neuts % (Manual) Lymphocytes % (Manual) Monocytes % (Manual) Seg Neutrophils # Seg Neutrophils # Man Lymphocytes # (Manual) Monocytes # (Manual) PT 17.1 H INR 1.34 H APTT Heparin Anti-Xa Level POC ABG pH POC ABG pCO2 POC ABG pO2 Sodium 136 L Potassium Chloride Carbon Dioxide BUN 41 H Creatinine 3.4 H Glucose 129 H POC Glucose Lactic Acid Calcium 7.4 L Phosphorus Magnesium Iron TIBC AST ALT Alkaline Phosphatase Lactate Dehydrogenase Total Creatine Kinase C-Reactive Protein 11.10 H Total Protein Albumin Prealbumin CA 19-9 Antigen Folate PTH Intact Urine WBC (Auto) Urine Creatinine Urine Chloride Urine Total Protein Fluid Glucose Fluid Total Protein Vancomycin Trough Miscellaneous Test Crossmatch 06/03/18 06/03/18 06/03/18 16:07 21:18 Unknown WBC RBC Hgb Hct MCV MCHC RDW Plt Count Lymph % (Auto) [place] % (Auto) Lymph # [place] # Seg Neutrophils % Seg Neuts % (Manual) Lymphocytes % (Manual) Monocytes % (Manual) Seg Neutrophils # Seg Neutrophils # Man Lymphocytes # (Manual) Monocytes # (Manual) PT INR APTT Heparin Anti-Xa Level POC ABG pH POC ABG pCO2 POC ABG pO2 Sodium Potassium Chloride Carbon Dioxide BUN Creatinine Glucose POC Glucose 144 H 128 H Lactic Acid Calcium Phosphorus Magnesium Iron TIBC AST ALT Alkaline Phosphatase Lactate Dehydrogenase Total Creatine Kinase C-Reactive Protein Total Protein Albumin Prealbumin CA 19-9 Antigen Folate PTH Intact Urine WBC (Auto) Urine Creatinine Urine Chloride Urine Total Protein Fluid Glucose 10 L Fluid Total Protein 3.7 L Vancomycin Trough Miscellaneous Test Crossmatch 06/04/18 06/04/18 06/04/18 04:31 06:14 11:38 WBC RBC Hgb Hct MCV MCHC RDW Plt Count Lymph % (Auto) [place] % (Auto) Lymph # [place] # Seg Neutrophils % Seg Neuts % (Manual) Lymphocytes % (Manual) Monocytes % (Manual) Seg Neutrophils # Seg Neutrophils # Man Lymphocytes # (Manual) Monocytes # (Manual) PT INR APTT Heparin Anti-Xa Level POC ABG pH POC ABG pCO2 POC ABG pO2 Sodium Potassium Chloride Carbon Dioxide BUN 55 H Creatinine 3.7 H Glucose 151 H POC Glucose 145 H 129 H Lactic Acid Calcium 7.8 L Phosphorus 4.60 H Magnesium Iron TIBC AST ALT Alkaline Phosphatase Lactate Dehydrogenase Total Creatine Kinase C-Reactive Protein Total Protein Albumin Prealbumin CA 19-9 Antigen Folate PTH Intact Urine WBC (Auto) Urine Creatinine Urine Chloride Urine Total Protein Fluid Glucose Fluid Total Protein Vancomycin Trough Miscellaneous Test Crossmatch 06/04/18 06/04/18 06/04/18 17:09 20:00 21:29 WBC RBC Hgb 8.8 L Hct 27.3 L MCV MCHC RDW Plt Count Lymph % (Auto) [place] % (Auto) Lymph # [place] # Seg Neutrophils % Seg Neuts % (Manual) Lymphocytes % (Manual) Monocytes % (Manual) Seg Neutrophils # Seg Neutrophils # Man Lymphocytes # (Manual) Monocytes # (Manual) PT INR APTT Heparin Anti-Xa Level POC ABG pH POC ABG pCO2 POC ABG pO2 Sodium Potassium Chloride Carbon Dioxide BUN Creatinine Glucose POC Glucose 142 H 130 H Lactic Acid Calcium Phosphorus Magnesium Iron TIBC AST ALT Alkaline Phosphatase Lactate Dehydrogenase Total Creatine Kinase C-Reactive Protein Total Protein Albumin Prealbumin CA 19-9 Antigen Folate PTH Intact Urine WBC (Auto) Urine Creatinine Urine Chloride Urine Total Protein Fluid Glucose Fluid Total Protein Vancomycin Trough Miscellaneous Test Crossmatch 06/05/18 06/05/18 06/05/18 06:30 07:00 07:00 WBC 19.3 H RBC 2.94 L Hgb 8.3 L Hct 25.6 L MCV MCHC RDW 15.7 H Plt Count 568 H Lymph % (Auto) 4.7 L [place] % (Auto) Lymph # 0.9 L [place] # 1.1 H Seg Neutrophils % 88.9 H Seg Neuts % (Manual) Lymphocytes % (Manual) Monocytes % (Manual) Seg Neutrophils # 17.2 H Seg Neutrophils # Man Lymphocytes # (Manual) Monocytes # (Manual) PT INR APTT Heparin Anti-Xa Level POC ABG pH POC ABG pCO2 POC ABG pO2 Sodium Potassium 3.4 L D Chloride Carbon Dioxide BUN 67 H Creatinine 3.6 H Glucose 145 H POC Glucose 153 H Lactic Acid Calcium 7.9 L Phosphorus 4.60 H Magnesium Iron TIBC AST ALT Alkaline Phosphatase Lactate Dehydrogenase Total Creatine Kinase C-Reactive Protein Total Protein Albumin Prealbumin CA 19-9 Antigen Folate PTH Intact Urine WBC (Auto) Urine Creatinine Urine Chloride Urine Total Protein Fluid Glucose Fluid Total Protein Vancomycin Trough Miscellaneous Test Crossmatch 06/05/18 06/05/18 06/06/18 12:10 16:01 06:39 WBC RBC Hgb Hct MCV MCHC RDW Plt Count Lymph % (Auto) [place] % (Auto) Lymph # [place] # Seg Neutrophils % Seg Neuts % (Manual) Lymphocytes % (Manual) Monocytes % (Manual) Seg Neutrophils # Seg Neutrophils # Man Lymphocytes # (Manual) Monocytes # (Manual) PT INR APTT Heparin Anti-Xa Level POC ABG pH POC ABG pCO2 POC ABG pO2 Sodium Potassium Chloride Carbon Dioxide BUN Creatinine Glucose POC Glucose 150 H 129 H 131 H Lactic Acid Calcium Phosphorus Magnesium Iron TIBC AST ALT Alkaline Phosphatase Lactate Dehydrogenase Total Creatine Kinase C-Reactive Protein Total Protein Albumin Prealbumin CA 19-9 Antigen Folate PTH Intact Urine WBC (Auto) Urine Creatinine Urine Chloride Urine Total Protein Fluid Glucose Fluid Total Protein Vancomycin Trough Miscellaneous Test Crossmatch 06/06/18 06/06/18 06/06/18 07:14 07:14 07:14 WBC 16.5 H RBC 2.84 L Hgb 8.1 L Hct 25.2 L MCV MCHC RDW 16.4 H Plt Count 526 H Lymph % (Auto) 6.5 L [place] % (Auto) Lymph # 1.1 L [place] # 1.2 H Seg Neutrophils % 85.3 H Seg Neuts % (Manual) Lymphocytes % (Manual) Monocytes % (Manual) Seg Neutrophils # 14.1 H Seg Neutrophils # Man Lymphocytes # (Manual) Monocytes # (Manual) PT INR APTT Heparin Anti-Xa Level POC ABG pH POC ABG pCO2 POC ABG pO2 Sodium Potassium Chloride 109.1 H Carbon Dioxide 21 L BUN 76 H Creatinine 3.5 H Glucose 111 H POC Glucose Lactic Acid Calcium 8.1 L Phosphorus Magnesium Iron TIBC AST ALT Alkaline Phosphatase Lactate Dehydrogenase Total Creatine Kinase C-Reactive Protein 4.70 H Total Protein Albumin Prealbumin CA 19-9 Antigen Folate PTH Intact Urine WBC (Auto) Urine Creatinine Urine Chloride Urine Total Protein Fluid Glucose Fluid Total Protein Vancomycin Trough Miscellaneous Test Crossmatch 06/06/18 06/06/18 06/06/18 11:15 18:00 23:58 WBC RBC Hgb Hct MCV MCHC RDW Plt Count Lymph % (Auto) [place] % (Auto) Lymph # [place] # Seg Neutrophils % Seg Neuts % (Manual) Lymphocytes % (Manual) Monocytes % (Manual) Seg Neutrophils # Seg Neutrophils # Man Lymphocytes # (Manual) Monocytes # (Manual) PT INR APTT Heparin Anti-Xa Level POC ABG pH POC ABG pCO2 POC ABG pO2 Sodium Potassium Chloride Carbon Dioxide BUN Creatinine Glucose POC Glucose 127 H 130 H 114 H Lactic Acid Calcium Phosphorus Magnesium Iron TIBC AST ALT Alkaline Phosphatase Lactate Dehydrogenase Total Creatine Kinase C-Reactive Protein Total Protein Albumin Prealbumin CA 19-9 Antigen Folate PTH Intact Urine WBC (Auto) Urine Creatinine Urine Chloride Urine Total Protein Fluid Glucose Fluid Total Protein Vancomycin Trough Miscellaneous Test Crossmatch 06/07/18 06/07/18 06/07/18 05:45 05:45 05:54 WBC 15.5 H RBC 2.60 L Hgb 7.4 L Hct 23.1 L MCV MCHC RDW 16.5 H Plt Count 506 H Lymph % (Auto) 5.3 L [place] % (Auto) Lymph # 0.8 L [place] # 1.0 H Seg Neutrophils % 86.6 H Seg Neuts % (Manual) Lymphocytes % (Manual) Monocytes % (Manual) Seg Neutrophils # 13.4 H Seg Neutrophils # Man Lymphocytes # (Manual) Monocytes # (Manual) PT INR APTT Heparin Anti-Xa Level POC ABG pH POC ABG pCO2 POC ABG pO2 Sodium Potassium Chloride 108.4 H Carbon Dioxide BUN 84 H Creatinine 3.5 H Glucose 119 H POC Glucose 114 H Lactic Acid Calcium 8.1 L Phosphorus 5.10 H Magnesium Iron TIBC AST ALT Alkaline Phosphatase Lactate Dehydrogenase Total Creatine Kinase C-Reactive Protein Total Protein Albumin Prealbumin CA 19-9 Antigen Folate PTH Intact Urine WBC (Auto) Urine Creatinine Urine Chloride Urine Total Protein Fluid Glucose Fluid Total Protein Vancomycin Trough Miscellaneous Test Crossmatch 06/07/18 06/08/18 06/08/18 12:15 05:05 05:24 WBC RBC Hgb Hct MCV MCHC RDW Plt Count Lymph % (Auto) [place] % (Auto) Lymph # [place] # Seg Neutrophils % Seg Neuts % (Manual) Lymphocytes % (Manual) Monocytes % (Manual) Seg Neutrophils # Seg Neutrophils # Man Lymphocytes # (Manual) Monocytes # (Manual) PT INR APTT Heparin Anti-Xa Level POC ABG pH POC ABG pCO2 POC ABG pO2 Sodium 148 H Potassium Chloride 112.4 H Carbon Dioxide BUN 89 H Creatinine 3.4 H Glucose 120 H POC Glucose 148 H 115 H Lactic Acid Calcium 7.9 L Phosphorus Magnesium Iron TIBC AST ALT Alkaline Phosphatase Lactate Dehydrogenase Total Creatine Kinase C-Reactive Protein Total Protein Albumin Prealbumin CA 19-9 Antigen Folate PTH Intact Urine WBC (Auto) Urine Creatinine Urine Chloride Urine Total Protein Fluid Glucose Fluid Total Protein Vancomycin Trough Miscellaneous Test Crossmatch 06/08/18 06/08/18 06/08/18 21:36 21:43 21:43 WBC RBC 2.98 L Hgb 8.8 L Hct 26.6 L MCV MCHC RDW 16.7 H Plt Count 463 H Lymph % (Auto) 7.9 L [place] % (Auto) Lymph # 0.8 L [place] # Seg Neutrophils % 84.8 H Seg Neuts % (Manual) Lymphocytes % (Manual) Monocytes % (Manual) Seg Neutrophils # 8.6 H Seg Neutrophils # Man Lymphocytes # (Manual) Monocytes # (Manual) PT INR APTT Heparin Anti-Xa Level POC ABG pH POC ABG pCO2 POC ABG pO2 Sodium Potassium Chloride Carbon Dioxide BUN Creatinine Glucose POC Glucose Lactic Acid Calcium Phosphorus Magnesium Iron TIBC AST ALT Alkaline Phosphatase Lactate Dehydrogenase 297 H Total Creatine Kinase C-Reactive Protein Total Protein Albumin Prealbumin CA 19-9 Antigen 57 H Folate PTH Intact Urine WBC (Auto) Urine Creatinine Urine Chloride Urine Total Protein Fluid Glucose Fluid Total Protein Vancomycin Trough Miscellaneous Test Crossmatch 06/09/18 06/09/1818 00:05 05:34 05:50 WBC RBC Hgb Hct MCV MCHC RDW Plt Count Lymph % (Auto) [place] % (Auto) Lymph # [place] # Seg Neutrophils % Seg Neuts % (Manual) Lymphocytes % (Manual) Monocytes % (Manual) Seg Neutrophils # Seg Neutrophils # Man Lymphocytes # (Manual) Monocytes # (Manual) PT INR APTT Heparin Anti-Xa Level POC ABG pH POC ABG pCO2 POC ABG pO2 Sodium 153 H Potassium Chloride 117.3 H Carbon Dioxide BUN 84 H Creatinine 3.2 H Glucose 117 H POC Glucose 140 H 146 H Lactic Acid Calcium 7.9 L Phosphorus Magnesium Iron TIBC AST ALT Alkaline Phosphatase Lactate Dehydrogenase Total Creatine Kinase C-Reactive Protein Total Protein Albumin Prealbumin CA 19-9 Antigen Folate PTH Intact Urine WBC (Auto) Urine Creatinine Urine Chloride Urine Total Protein Fluid Glucose Fluid Total Protein Vancomycin Trough Miscellaneous Test Crossmatch 06/09/18 06/09/18 06/09/18 05:50 07:37 10:34 WBC RBC 2.32 L Hgb 6.8 L Hct 20.7 L MCV MCHC RDW 16.7 H Plt Count Lymph % (Auto) [place] % (Auto) Lymph # [place] # Seg Neutrophils % Seg Neuts % (Manual) Lymphocytes % (Manual) Monocytes % (Manual) Seg Neutrophils # Seg Neutrophils # Man Lymphocytes # (Manual) Monocytes # (Manual) PT INR APTT Heparin Anti-Xa Level POC ABG pH POC ABG pCO2 POC ABG pO2 Sodium 149 H Potassium Chloride 114.6 H Carbon Dioxide BUN 84 H Creatinine 3.1 H Glucose 137 H POC Glucose Lactic Acid Calcium 7.7 L Phosphorus Magnesium Iron TIBC AST ALT Alkaline Phosphatase Lactate Dehydrogenase Total Creatine Kinase C-Reactive Protein Total Protein Albumin Prealbumin CA 19-9 Antigen Folate PTH Intact Urine WBC (Auto) Urine Creatinine Urine Chloride Urine Total Protein Fluid Glucose Fluid Total Protein Vancomycin Trough Miscellaneous Test Flexitest 1 H Crossmatch 06/09/18 06/09/18 06/09/18 10:41 11:56 13:24 WBC RBC 2.43 L Hgb 7.2 L Hct 21.6 L MCV MCHC RDW 16.8 H Plt Count Lymph % (Auto) [place] % (Auto) Lymph # [place] # Seg Neutrophils % Seg Neuts % (Manual) Lymphocytes % (Manual) Monocytes % (Manual) Seg Neutrophils # Seg Neutrophils # Man Lymphocytes # (Manual) Monocytes # (Manual) PT INR APTT Heparin Anti-Xa Level POC ABG pH POC ABG pCO2 POC ABG pO2 Sodium Potassium Chloride Carbon Dioxide BUN Creatinine Glucose POC Glucose 141 H Lactic Acid Calcium Phosphorus Magnesium Iron TIBC AST ALT Alkaline Phosphatase Lactate Dehydrogenase Total Creatine Kinase C-Reactive Protein Total Protein Albumin Prealbumin CA 19-9 Antigen Folate PTH Intact Urine WBC (Auto) Urine Creatinine Urine Chloride Urine Total Protein Fluid Glucose Fluid Total Protein Vancomycin Trough Miscellaneous Test Crossmatch See Detail 06/09/18 06/09/18 06/10/18 18:18 23:13 05:26 WBC RBC Hgb Hct MCV MCHC RDW Plt Count Lymph % (Auto) [place] % (Auto) Lymph # [place] # Seg Neutrophils % Seg Neuts % (Manual) Lymphocytes % (Manual) Monocytes % (Manual) Seg Neutrophils # Seg Neutrophils # Man Lymphocytes # (Manual) Monocytes # (Manual) PT INR APTT Heparin Anti-Xa Level POC ABG pH POC ABG pCO2 POC ABG pO2 Sodium 148 H Potassium Chloride 114.7 H Carbon Dioxide 21 L BUN 79 H Creatinine 3.2 H Glucose 121 H POC Glucose 156 H 163 H Lactic Acid Calcium 7.8 L Phosphorus Magnesium 1.60 L Iron TIBC AST ALT Alkaline Phosphatase Lactate Dehydrogenase Total Creatine Kinase C-Reactive Protein Total Protein Albumin Prealbumin CA 19-9 Antigen Folate PTH Intact Urine WBC (Auto) Urine Creatinine Urine Chloride Urine Total Protein Fluid Glucose Fluid Total Protein Vancomycin Trough Miscellaneous Test Crossmatch 06/10/18 06/10/18 06/10/18 05:26 05:31 17:15 WBC 11.1 H RBC 3.07 L Hgb 9.1 L Hct 27.6 L D MCV MCHC RDW 17.4 H Plt Count Lymph % (Auto) [place] % (Auto) Lymph # [place] # Seg Neutrophils % Seg Neuts % (Manual) Lymphocytes % (Manual) Monocytes % (Manual) Seg Neutrophils # Seg Neutrophils # Man Lymphocytes # (Manual) Monocytes # (Manual) PT INR APTT Heparin Anti-Xa Level POC ABG pH POC ABG pCO2 POC ABG pO2 Sodium Potassium Chloride Carbon Dioxide BUN Creatinine Glucose POC Glucose 128 H Lactic Acid Calcium Phosphorus Magnesium Iron TIBC AST ALT Alkaline Phosphatase Lactate Dehydrogenase Total Creatine Kinase C-Reactive Protein 3.60 H Total Protein Albumin Prealbumin CA 19-9 Antigen Folate PTH Intact Urine WBC (Auto) Urine Creatinine Urine Chloride Urine Total Protein Fluid Glucose Fluid Total Protein Vancomycin Trough Miscellaneous Test Crossmatch 06/11/18 06/11/18 06/11/18 01:13 05:41 05:41 WBC 14.6 H RBC 3.40 L Hgb 9.8 L Hct 30.7 L MCV MCHC RDW 18.1 H Plt Count Lymph % (Auto) [place] % (Auto) Lymph # [place] # Seg Neutrophils % Seg Neuts % (Manual) Lymphocytes % (Manual) Monocytes % (Manual) Seg Neutrophils # Seg Neutrophils # Man Lymphocytes # (Manual) Monocytes # (Manual) PT INR APTT Heparin Anti-Xa Level POC ABG pH POC ABG pCO2 POC ABG pO2 Sodium Potassium Chloride 110.8 H Carbon Dioxide 18 L BUN 77 H Creatinine 3.0 H Glucose 116 H POC Glucose 126 H Lactic Acid Calcium 7.9 L Phosphorus Magnesium Iron TIBC AST ALT Alkaline Phosphatase Lactate Dehydrogenase Total Creatine Kinase C-Reactive Protein Total Protein Albumin Prealbumin CA 19-9 Antigen Folate PTH Intact Urine WBC (Auto) Urine Creatinine Urine Chloride Urine Total Protein Fluid Glucose Fluid Total Protein Vancomycin Trough Miscellaneous Test Crossmatch 06/11/18 06/11/18 06/11/18 06:20 07:41 07:41 WBC RBC Hgb Hct MCV MCHC RDW Plt Count Lymph % (Auto) [place] % (Auto) Lymph # [place] # Seg Neutrophils % Seg Neuts % (Manual) Lymphocytes % (Manual) Monocytes % (Manual) Seg Neutrophils # Seg Neutrophils # Man Lymphocytes # (Manual) Monocytes # (Manual) PT INR APTT Heparin Anti-Xa Level POC ABG pH POC ABG pCO2 POC ABG pO2 Sodium Potassium Chloride Carbon Dioxide BUN Creatinine Glucose POC Glucose 136 H Lactic Acid Calcium Phosphorus Magnesium Iron TIBC AST ALT Alkaline Phosphatase Lactate Dehydrogenase Total Creatine Kinase C-Reactive Protein Total Protein Albumin Prealbumin CA 19-9 Antigen Folate PTH Intact Urine WBC (Auto) 10.0 H Urine Creatinine 41.2 H Urine Chloride 49.2 L Urine Total Protein 142 H Fluid Glucose Fluid Total Protein Vancomycin Trough Miscellaneous Test Crossmatch 06/11/18 06/12/18 06/12/18 18:35 00:34 04:12 WBC RBC 3.18 L Hgb 9.5 L Hct 28.7 L MCV MCHC RDW 18.5 H Plt Count Lymph % (Auto) 8.1 L [place] % (Auto) Lymph # 0.9 L [place] # Seg Neutrophils % 84.6 H Seg Neuts % (Manual) Lymphocytes % (Manual) Monocytes % (Manual) Seg Neutrophils # 9.1 H Seg Neutrophils # Man Lymphocytes # (Manual) Monocytes # (Manual) PT INR APTT Heparin Anti-Xa Level POC ABG pH POC ABG pCO2 POC ABG pO2 Sodium Potassium Chloride Carbon Dioxide BUN Creatinine Glucose POC Glucose 125 H 129 H Lactic Acid Calcium Phosphorus Magnesium Iron TIBC AST ALT Alkaline Phosphatase Lactate Dehydrogenase Total Creatine Kinase C-Reactive Protein Total Protein Albumin Prealbumin CA 19-9 Antigen Folate PTH Intact Urine WBC (Auto) Urine Creatinine Urine Chloride Urine Total Protein Fluid Glucose Fluid Total Protein Vancomycin Trough Miscellaneous Test Crossmatch 06/12/18 06/12/18 06/12/18 04:12 06:30 11:43 WBC RBC Hgb Hct MCV MCHC RDW Plt Count Lymph % (Auto) [place] % (Auto) Lymph # [place] # Seg Neutrophils % Seg Neuts % (Manual) Lymphocytes % (Manual) Monocytes % (Manual) Seg Neutrophils # Seg Neutrophils # Man Lymphocytes # (Manual) Monocytes # (Manual) PT INR APTT Heparin Anti-Xa Level POC ABG pH POC ABG pCO2 POC ABG pO2 Sodium Potassium Chloride 108.5 H Carbon Dioxide 21 L BUN 72 H Creatinine 3.0 H Glucose 122 H POC Glucose 129 H 126 H Lactic Acid Calcium 7.8 L Phosphorus Magnesium Iron TIBC AST 45 H ALT Alkaline Phosphatase 200 H Lactate Dehydrogenase Total Creatine Kinase 34 L C-Reactive Protein Total Protein Albumin 1.7 L Prealbumin CA 19-9 Antigen Folate PTH Intact Urine WBC (Auto) Urine Creatinine Urine Chloride Urine Total Protein Fluid Glucose Fluid Total Protein Vancomycin Trough Miscellaneous Test Crossmatch 06/12/18 06/12/18 06/13/18 16:00 23:56 03:44 WBC RBC Hgb Hct MCV MCHC RDW Plt Count Lymph % (Auto) [place] % (Auto) Lymph # [place] # Seg Neutrophils % Seg Neuts % (Manual) Lymphocytes % (Manual) Monocytes % (Manual) Seg Neutrophils # Seg Neutrophils # Man Lymphocytes # (Manual) Monocytes # (Manual) PT INR APTT Heparin Anti-Xa Level POC ABG pH POC ABG pCO2 POC ABG pO2 Sodium Potassium Chloride Carbon Dioxide BUN Creatinine Glucose POC Glucose 123 H 128 H 121 H Lactic Acid Calcium Phosphorus Magnesium Iron TIBC AST ALT Alkaline Phosphatase Lactate Dehydrogenase Total Creatine Kinase C-Reactive Protein Total Protein Albumin Prealbumin CA 19-9 Antigen Folate PTH Intact Urine WBC (Auto) Urine Creatinine Urine Chloride Urine Total Protein Fluid Glucose Fluid Total Protein Vancomycin Trough Miscellaneous Test Crossmatch 06/13/18 06/13/18 06/14/18 05:59 11:29 01:08 WBC RBC Hgb Hct MCV MCHC RDW Plt Count Lymph % (Auto) [place] % (Auto) Lymph # [place] # Seg Neutrophils % Seg Neuts % (Manual) Lymphocytes % (Manual) Monocytes % (Manual) Seg Neutrophils # Seg Neutrophils # Man Lymphocytes # (Manual) Monocytes # (Manual) PT INR APTT Heparin Anti-Xa Level POC ABG pH POC ABG pCO2 POC ABG pO2 Sodium 134 L Potassium Chloride Carbon Dioxide 20 L BUN 69 H Creatinine 2.9 H Glucose 113 H POC Glucose 124 H 128 H Lactic Acid Calcium 7.8 L Phosphorus Magnesium Iron TIBC AST ALT Alkaline Phosphatase Lactate Dehydrogenase Total Creatine Kinase C-Reactive Protein Total Protein Albumin Prealbumin CA 19-9 Antigen Folate PTH Intact Urine WBC (Auto) Urine Creatinine Urine Chloride Urine Total Protein Fluid Glucose Fluid Total Protein Vancomycin Trough Miscellaneous Test Crossmatch 06/14/18 06/14/18 06/14/18 06:42 06:42 09:50 WBC 11.3 H RBC 3.02 L Hgb 8.8 L Hct 27.3 L MCV MCHC RDW 18.6 H Plt Count Lymph % (Auto) [place] % (Auto) Lymph # [place] # Seg Neutrophils % Seg Neuts % (Manual) Lymphocytes % (Manual) Monocytes % (Manual) Seg Neutrophils # Seg Neutrophils # Man Lymphocytes # (Manual) Monocytes # (Manual) PT 16.3 H INR 1.24 H APTT Heparin Anti-Xa Level POC ABG pH POC ABG pCO2 POC ABG pO2 Sodium 132 L Potassium Chloride Carbon Dioxide 19 L BUN 71 H Creatinine 3.1 H Glucose POC Glucose Lactic Acid Calcium 7.8 L Phosphorus Magnesium Iron TIBC AST ALT Alkaline Phosphatase Lactate Dehydrogenase Total Creatine Kinase C-Reactive Protein Total Protein Albumin Prealbumin CA 19-9 Antigen Folate PTH Intact Urine WBC (Auto) Urine Creatinine Urine Chloride Urine Total Protein Fluid Glucose Fluid Total Protein Vancomycin Trough Miscellaneous Test Crossmatch 06/14/18 06/14/18 06/15/18 12:31 17:04 01:18 WBC RBC Hgb Hct MCV MCHC RDW Plt Count Lymph % (Auto) [place] % (Auto) Lymph # [place] # Seg Neutrophils % Seg Neuts % (Manual) Lymphocytes % (Manual) Monocytes % (Manual) Seg Neutrophils # Seg Neutrophils # Man Lymphocytes # (Manual) Monocytes # (Manual) PT INR APTT Heparin Anti-Xa Level POC ABG pH POC ABG pCO2 POC ABG pO2 Sodium Potassium Chloride Carbon Dioxide BUN Creatinine Glucose POC Glucose 125 H 109 H 124 H Lactic Acid Calcium Phosphorus Magnesium Iron TIBC AST ALT Alkaline Phosphatase Lactate Dehydrogenase Total Creatine Kinase C-Reactive Protein Total Protein Albumin Prealbumin CA 19-9 Antigen Folate PTH Intact Urine WBC (Auto) Urine Creatinine Urine Chloride Urine Total Protein Fluid Glucose Fluid Total Protein Vancomycin Trough Miscellaneous Test Crossmatch 06/15/18 06/15/18 06/15/18 05:27 06:34 11:42 WBC RBC Hgb Hct MCV MCHC RDW Plt Count Lymph % (Auto) [place] % (Auto) Lymph # [place] # Seg Neutrophils % Seg Neuts % (Manual) Lymphocytes % (Manual) Monocytes % (Manual) Seg Neutrophils # Seg Neutrophils # Man Lymphocytes # (Manual) Monocytes # (Manual) PT INR APTT Heparin Anti-Xa Level POC ABG pH POC ABG pCO2 POC ABG pO2 Sodium 134 L Potassium Chloride Carbon Dioxide 17 L BUN 77 H Creatinine 3.2 H Glucose 110 H POC Glucose 116 H 131 H Lactic Acid Calcium 8.1 L Phosphorus 6.20 H D Magnesium Iron TIBC AST ALT Alkaline Phosphatase Lactate Dehydrogenase Total Creatine Kinase C-Reactive Protein Total Protein Albumin Prealbumin CA 19-9 Antigen Folate PTH Intact Urine WBC (Auto) Urine Creatinine Urine Chloride Urine Total Protein Fluid Glucose Fluid Total Protein Vancomycin Trough Miscellaneous Test Crossmatch 06/16/18 06/16/18 06/16/18 00:57 05:10 06:07 WBC RBC Hgb Hct MCV MCHC RDW Plt Count Lymph % (Auto) [place] % (Auto) Lymph # [place] # Seg Neutrophils % Seg Neuts % (Manual) Lymphocytes % (Manual) Monocytes % (Manual) Seg Neutrophils # Seg Neutrophils # Man Lymphocytes # (Manual) Monocytes # (Manual) PT INR APTT Heparin Anti-Xa Level POC ABG pH POC ABG pCO2 POC ABG pO2 Sodium 132 L Potassium Chloride Carbon Dioxide 19 L BUN 83 H Creatinine 3.2 H Glucose 113 H POC Glucose 137 H 109 H Lactic Acid Calcium 7.8 L Phosphorus 6.10 H Magnesium Iron TIBC AST ALT Alkaline Phosphatase Lactate Dehydrogenase Total Creatine Kinase C-Reactive Protein Total Protein Albumin Prealbumin CA 19-9 Antigen Folate PTH Intact Urine WBC (Auto) Urine Creatinine Urine Chloride Urine Total Protein Fluid Glucose Fluid Total Protein Vancomycin Trough Miscellaneous Test Crossmatch 06/16/18 06/16/18 06/17/18 11:51 15:46 00:02 WBC RBC Hgb Hct MCV MCHC RDW Plt Count Lymph % (Auto) [place] % (Auto) Lymph # [place] # Seg Neutrophils % Seg Neuts % (Manual) Lymphocytes % (Manual) Monocytes % (Manual) Seg Neutrophils # Seg Neutrophils # Man Lymphocytes # (Manual) Monocytes # (Manual) PT INR APTT Heparin Anti-Xa Level POC ABG pH POC ABG pCO2 POC ABG pO2 Sodium Potassium Chloride Carbon Dioxide BUN Creatinine Glucose POC Glucose 126 H 127 H 107 H Lactic Acid Calcium Phosphorus Magnesium Iron TIBC AST ALT Alkaline Phosphatase Lactate Dehydrogenase Total Creatine Kinase C-Reactive Protein Total Protein Albumin Prealbumin CA 19-9 Antigen Folate PTH Intact Urine WBC (Auto) Urine Creatinine Urine Chloride Urine Total Protein Fluid Glucose Fluid Total Protein Vancomycin Trough Miscellaneous Test Crossmatch 06/17/18 06/17/18 06/17/18 05:52 11:46 16:58 WBC RBC Hgb Hct MCV MCHC RDW Plt Count Lymph % (Auto) [place] % (Auto) Lymph # [place] # Seg Neutrophils % Seg Neuts % (Manual) Lymphocytes % (Manual) Monocytes % (Manual) Seg Neutrophils # Seg Neutrophils # Man Lymphocytes # (Manual) Monocytes # (Manual) PT INR APTT Heparin Anti-Xa Level POC ABG pH POC ABG pCO2 POC ABG pO2 Sodium 133 L Potassium Chloride Carbon Dioxide 17 L BUN 87 H Creatinine 3.2 H Glucose POC Glucose 129 H 140 H Lactic Acid Calcium 8.1 L Phosphorus 6.50 H Magnesium Iron TIBC AST ALT Alkaline Phosphatase Lactate Dehydrogenase Total Creatine Kinase C-Reactive Protein Total Protein Albumin Prealbumin 0.130 L CA 19-9 Antigen Folate PTH Intact Urine WBC (Auto) Urine Creatinine Urine Chloride Urine Total Protein Fluid Glucose Fluid Total Protein Vancomycin Trough Miscellaneous Test Crossmatch 06/18/18 06/18/18 06/18/18 04:04 04:04 14:15 WBC RBC 3.00 L Hgb 8.9 L Hct 26.5 L MCV MCHC RDW 17.8 H Plt Count 494 H Lymph % (Auto) 7.9 L [place] % (Auto) 9.3 H Lymph # 0.8 L [place] # 1.0 H Seg Neutrophils % 81.2 H Seg Neuts % (Manual) Lymphocytes % (Manual) Monocytes % (Manual) Seg Neutrophils # 8.6 H Seg Neutrophils # Man Lymphocytes # (Manual) Monocytes # (Manual) PT INR APTT Heparin Anti-Xa Level POC ABG pH POC ABG pCO2 POC ABG pO2 Sodium 128 L Potassium Chloride Carbon Dioxide 18 L BUN 88 H Creatinine 3.1 H Glucose 129 H POC Glucose 143 H Lactic Acid Calcium 7.8 L Phosphorus 6.20 H Magnesium Iron TIBC AST ALT Alkaline Phosphatase Lactate Dehydrogenase Total Creatine Kinase C-Reactive Protein Total Protein Albumin Prealbumin CA 19-9 Antigen Folate PTH Intact Urine WBC (Auto) Urine Creatinine Urine Chloride Urine Total Protein Fluid Glucose Fluid Total Protein Vancomycin Trough Miscellaneous Test Crossmatch 06/18/18 06/19/18 06/19/18 17:54 01:45 06:20 WBC RBC Hgb Hct MCV MCHC RDW Plt Count Lymph % (Auto) [place] % (Auto) Lymph # [place] # Seg Neutrophils % Seg Neuts % (Manual) Lymphocytes % (Manual) Monocytes % (Manual) Seg Neutrophils # Seg Neutrophils # Man Lymphocytes # (Manual) Monocytes # (Manual) PT INR APTT Heparin Anti-Xa Level POC ABG pH POC ABG pCO2 POC ABG pO2 Sodium Potassium Chloride 93.9 L Carbon Dioxide BUN 78 H Creatinine 2.8 H Glucose POC Glucose 138 H 141 H Lactic Acid Calcium 7.1 L Phosphorus 6.40 H Magnesium Iron TIBC AST ALT Alkaline Phosphatase Lactate Dehydrogenase Total Creatine Kinase C-Reactive Protein Total Protein Albumin Prealbumin CA 19-9 Antigen Folate PTH Intact Urine WBC (Auto) Urine Creatinine Urine Chloride Urine Total Protein Fluid Glucose Fluid Total Protein Vancomycin Trough Miscellaneous Test Crossmatch 06/19/18 06/19/18 06/19/18 06:49 07:59 16:32 WBC RBC Hgb Hct MCV MCHC RDW Plt Count Lymph % (Auto) [place] % (Auto) Lymph # [place] # Seg Neutrophils % Seg Neuts % (Manual) Lymphocytes % (Manual) Monocytes % (Manual) Seg Neutrophils # Seg Neutrophils # Man Lymphocytes # (Manual) Monocytes # (Manual) PT INR APTT Heparin Anti-Xa Level POC ABG pH POC ABG pCO2 POC ABG pO2 Sodium Potassium Chloride Carbon Dioxide BUN 80 H Creatinine 2.9 H Glucose 123 H POC Glucose 130 H 134 H Lactic Acid Calcium 7.7 L Phosphorus Magnesium Iron TIBC AST ALT Alkaline Phosphatase Lactate Dehydrogenase Total Creatine Kinase C-Reactive Protein Total Protein Albumin Prealbumin CA 19-9 Antigen Folate PTH Intact Urine WBC (Auto) Urine Creatinine Urine Chloride Urine Total Protein Fluid Glucose Fluid Total Protein Vancomycin Trough Miscellaneous Test Crossmatch 06/20/18 06/20/18 06/20/18 00:11 05:55 05:55 WBC RBC 2.73 L Hgb 8.0 L Hct 24.2 L MCV MCHC RDW 17.4 H Plt Count 512 H Lymph % (Auto) 12.3 L [place] % (Auto) 11.3 H Lymph # 1.1 L [place] # 1.0 H Seg Neutrophils % 74.8 H Seg Neuts % (Manual) Lymphocytes % (Manual) Monocytes % (Manual) Seg Neutrophils # Seg Neutrophils # Man Lymphocytes # (Manual) Monocytes # (Manual) PT INR APTT Heparin Anti-Xa Level POC ABG pH POC ABG pCO2 POC ABG pO2 Sodium Potassium Chloride Carbon Dioxide 32 H BUN 70 H Creatinine 2.5 H Glucose 105 H POC Glucose 131 H Lactic Acid Calcium 8.0 L Phosphorus Magnesium Iron TIBC AST ALT Alkaline Phosphatase Lactate Dehydrogenase Total Creatine Kinase C-Reactive Protein Total Protein Albumin Prealbumin CA 19-9 Antigen Folate PTH Intact Urine WBC (Auto) Urine Creatinine Urine Chloride Urine Total Protein Fluid Glucose Fluid Total Protein Vancomycin Trough Miscellaneous Test Crossmatch 06/20/18 06/20/18 06/20/18 05:55 12:10 16:01 WBC RBC Hgb Hct MCV MCHC RDW Plt Count Lymph % (Auto) [place] % (Auto) Lymph # [place] # Seg Neutrophils % Seg Neuts % (Manual) Lymphocytes % (Manual) Monocytes % (Manual) Seg Neutrophils # Seg Neutrophils # Man Lymphocytes # (Manual) Monocytes # (Manual) PT INR APTT Heparin Anti-Xa Level POC ABG pH POC ABG pCO2 POC ABG pO2 Sodium Potassium Chloride Carbon Dioxide BUN Creatinine Glucose POC Glucose 112 H 127 H 145 H Lactic Acid Calcium Phosphorus Magnesium Iron TIBC AST ALT Alkaline Phosphatase Lactate Dehydrogenase Total Creatine Kinase C-Reactive Protein Total Protein Albumin Prealbumin CA 19-9 Antigen Folate PTH Intact Urine WBC (Auto) Urine Creatinine Urine Chloride Urine Total Protein Fluid Glucose Fluid Total Protein Vancomycin Trough Miscellaneous Test Crossmatch 06/20/18 06/21/18 06/21/18 23:54 05:50 05:50 WBC RBC 2.57 L Hgb 7.7 L Hct 26.6 L MCV 104 H MCHC 29 L RDW 19.1 H Plt Count 521 H Lymph % (Auto) 10.0 L [place] % (Auto) 7.4 H Lymph # 1.0 L [place] # Seg Neutrophils % 81.3 H Seg Neuts % (Manual) Lymphocytes % (Manual) Monocytes % (Manual) Seg Neutrophils # 7.9 H Seg Neutrophils # Man Lymphocytes # (Manual) Monocytes # (Manual) PT INR APTT Heparin Anti-Xa Level POC ABG pH POC ABG pCO2 POC ABG pO2 Sodium Potassium 5.8 H D Chloride 90.3 L Carbon Dioxide 37 H BUN 57 H Creatinine 1.9 H Glucose POC Glucose 154 H Lactic Acid Calcium 7.3 L Phosphorus Magnesium Iron TIBC AST 50 H ALT Alkaline Phosphatase 190 H Lactate Dehydrogenase Total Creatine Kinase C-Reactive Protein Total Protein Albumin 1.8 L Prealbumin CA 19-9 Antigen Folate PTH Intact Urine WBC (Auto) Urine Creatinine Urine Chloride Urine Total Protein Fluid Glucose Fluid Total Protein Vancomycin Trough Miscellaneous Test Crossmatch 06/21/18 06/21/18 06/21/18 06:57 13:37 17:00 WBC RBC Hgb Hct MCV MCHC RDW Plt Count Lymph % (Auto) [place] % (Auto) Lymph # [place] # Seg Neutrophils % Seg Neuts % (Manual) Lymphocytes % (Manual) Monocytes % (Manual) Seg Neutrophils # Seg Neutrophils # Man Lymphocytes # (Manual) Monocytes # (Manual) PT INR APTT Heparin Anti-Xa Level POC ABG pH POC ABG pCO2 POC ABG pO2 Sodium Potassium Chloride Carbon Dioxide BUN Creatinine Glucose 111 H POC Glucose 141 H 148 H Lactic Acid Calcium Phosphorus Magnesium Iron TIBC AST ALT Alkaline Phosphatase Lactate Dehydrogenase Total Creatine Kinase C-Reactive Protein Total Protein Albumin Prealbumin CA 19-9 Antigen Folate PTH Intact Urine WBC (Auto) Urine Creatinine Urine Chloride Urine Total Protein Fluid Glucose Fluid Total Protein Vancomycin Trough Miscellaneous Test Crossmatch 06/21/18 06/21/18 06/22/18 17:27 22:01 06:02 WBC RBC Hgb Hct MCV MCHC RDW Plt Count Lymph % (Auto) [place] % (Auto) Lymph # [place] # Seg Neutrophils % Seg Neuts % (Manual) Lymphocytes % (Manual) Monocytes % (Manual) Seg Neutrophils # Seg Neutrophils # Man Lymphocytes # (Manual) Monocytes # (Manual) PT INR APTT Heparin Anti-Xa Level POC ABG pH POC ABG pCO2 POC ABG pO2 Sodium Potassium 3.2 L Chloride Carbon Dioxide 39 H BUN 53 H Creatinine 1.9 H Glucose 1348 H* POC Glucose 130 H 122 H Lactic Acid Calcium 7.5 L Phosphorus Magnesium Iron TIBC AST ALT Alkaline Phosphatase Lactate Dehydrogenase Total Creatine Kinase C-Reactive Protein Total Protein Albumin Prealbumin CA 19-9 Antigen Folate PTH Intact Urine WBC (Auto) Urine Creatinine Urine Chloride Urine Total Protein Fluid Glucose Fluid Total Protein Vancomycin Trough Miscellaneous Test Crossmatch 06/22/18 06/22/18 06/22/18 06:16 07:26 07:48 WBC RBC Hgb Hct MCV MCHC RDW Plt Count Lymph % (Auto) [place] % (Auto) Lymph # [place] # Seg Neutrophils % Seg Neuts % (Manual) Lymphocytes % (Manual) Monocytes % (Manual) Seg Neutrophils # Seg Neutrophils # Man Lymphocytes # (Manual) Monocytes # (Manual) PT INR APTT Heparin Anti-Xa Level POC ABG pH POC ABG pCO2 POC ABG pO2 Sodium Potassium Chloride Carbon Dioxide 37 H BUN 57 H Creatinine 1.9 H Glucose 147 H POC Glucose 148 H 153 H Lactic Acid Calcium 8.3 L Phosphorus Magnesium Iron TIBC AST ALT Alkaline Phosphatase Lactate Dehydrogenase Total Creatine Kinase C-Reactive Protein Total Protein Albumin Prealbumin CA 19-9 Antigen Folate PTH Intact Urine WBC (Auto) Urine Creatinine Urine Chloride Urine Total Protein Fluid Glucose Fluid Total Protein Vancomycin Trough Miscellaneous Test Crossmatch 06/22/18 06/22/18 06/22/18 11:26 16:26 23:57 WBC RBC Hgb Hct MCV MCHC RDW Plt Count Lymph % (Auto) [place] % (Auto) Lymph # [place] # Seg Neutrophils % Seg Neuts % (Manual) Lymphocytes % (Manual) Monocytes % (Manual) Seg Neutrophils # Seg Neutrophils # Man Lymphocytes # (Manual) Monocytes # (Manual) PT INR APTT Heparin Anti-Xa Level POC ABG pH POC ABG pCO2 POC ABG pO2 Sodium Potassium Chloride Carbon Dioxide BUN Creatinine Glucose POC Glucose 121 H 122 H 180 H Lactic Acid Calcium Phosphorus Magnesium Iron TIBC AST ALT Alkaline Phosphatase Lactate Dehydrogenase Total Creatine Kinase C-Reactive Protein Total Protein Albumin Prealbumin CA 19-9 Antigen Folate PTH Intact Urine WBC (Auto) Urine Creatinine Urine Chloride Urine Total Protein Fluid Glucose Fluid Total Protein Vancomycin Trough Miscellaneous Test Crossmatch 06/22/18 06/23/18 06/23/18 23:57 00:30 01:40 WBC RBC Hgb Hct MCV MCHC RDW Plt Count Lymph % (Auto) [place] % (Auto) Lymph # [place] # Seg Neutrophils % Seg Neuts % (Manual) Lymphocytes % (Manual) Monocytes % (Manual) Seg Neutrophils # Seg Neutrophils # Man Lymphocytes # (Manual) Monocytes # (Manual) PT INR APTT Heparin Anti-Xa Level POC ABG pH 7.195 L 7.235 L POC ABG pCO2 105.2 H 95.7 H POC ABG pO2 Sodium Potassium Chloride Carbon Dioxide BUN Creatinine Glucose POC Glucose Lactic Acid Calcium Phosphorus Magnesium Iron TIBC AST ALT Alkaline Phosphatase Lactate Dehydrogenase Total Creatine Kinase C-Reactive Protein Total Protein Albumin Prealbumin CA 19-9 Antigen Folate PTH Intact Urine WBC (Auto) Urine Creatinine 99.7 H Urine Chloride 10.0 L Urine Total Protein 272 H Fluid Glucose Fluid Total Protein Vancomycin Trough Miscellaneous Test Crossmatch 06/23/18 06/23/18 06/23/18 05:58 07:20 08:31 WBC 16.0 H RBC 2.35 L Hgb 6.7 L Hct 22.3 L MCV 95 H MCHC 30 L RDW 18.5 H Plt Count 512 H Lymph % (Auto) [place] % (Auto) Lymph # [place] # Seg Neutrophils % Seg Neuts % (Manual) Lymphocytes % (Manual) Monocytes % (Manual) Seg Neutrophils # Seg Neutrophils # Man Lymphocytes # (Manual) Monocytes # (Manual) PT INR APTT Heparin Anti-Xa Level POC ABG pH POC ABG pCO2 POC ABG pO2 Sodium Potassium Chloride Carbon Dioxide BUN Creatinine Glucose POC Glucose 116 H 123 H Lactic Acid Calcium Phosphorus Magnesium Iron TIBC AST ALT Alkaline Phosphatase Lactate Dehydrogenase Total Creatine Kinase C-Reactive Protein Total Protein Albumin Prealbumin CA 19-9 Antigen Folate PTH Intact Urine WBC (Auto) Urine Creatinine Urine Chloride Urine Total Protein Fluid Glucose Fluid Total Protein Vancomycin Trough Miscellaneous Test Crossmatch 06/23/18 06/23/18 06/23/18 08:31 08:34 08:34 WBC RBC Hgb Hct MCV MCHC RDW Plt Count 485 H Lymph % (Auto) [place] % (Auto) Lymph # [place] # Seg Neutrophils % Seg Neuts % (Manual) Lymphocytes % (Manual) Monocytes % (Manual) Seg Neutrophils # Seg Neutrophils # Man Lymphocytes # (Manual) Monocytes # (Manual) PT 15.2 H INR 1.15 H APTT 41.9 H Heparin Anti-Xa Level POC ABG pH POC ABG pCO2 POC ABG pO2 Sodium 148 H Potassium Chloride Carbon Dioxide BUN 59 H Creatinine 2.2 H Glucose 106 H POC Glucose Lactic Acid Calcium 8.2 L Phosphorus 6.60 H Magnesium Iron TIBC AST 46 H ALT Alkaline Phosphatase 188 H Lactate Dehydrogenase Total Creatine Kinase C-Reactive Protein Total Protein Albumin 1.6 L Prealbumin CA 19-9 Antigen Folate PTH Intact Urine WBC (Auto) Urine Creatinine Urine Chloride Urine Total Protein Fluid Glucose Fluid Total Protein Vancomycin Trough Miscellaneous Test Crossmatch 06/23/18 06/23/18 06/23/18 09:29 09:40 09:43 WBC RBC Hgb Hct MCV MCHC RDW Plt Count Lymph % (Auto) [place] % (Auto) Lymph # [place] # Seg Neutrophils % Seg Neuts % (Manual) Lymphocytes % (Manual) Monocytes % (Manual) Seg Neutrophils # Seg Neutrophils # Man Lymphocytes # (Manual) Monocytes # (Manual) PT INR APTT Heparin Anti-Xa Level POC ABG pH 7.521 H POC ABG pCO2 53.6 H 48.4 H POC ABG pO2 37 L 181 H Sodium Potassium Chloride Carbon Dioxide BUN Creatinine Glucose POC Glucose Lactic Acid Calcium Phosphorus Magnesium Iron TIBC AST ALT Alkaline Phosphatase Lactate Dehydrogenase Total Creatine Kinase C-Reactive Protein Total Protein Albumin Prealbumin CA 19-9 Antigen Folate PTH Intact Urine WBC (Auto) Urine Creatinine Urine Chloride Urine Total Protein Fluid Glucose Fluid Total Protein Vancomycin Trough Miscellaneous Test Crossmatch See Detail 06/23/18 06/23/18 06/23/18 17:03 17:03 18:33 WBC 22.2 H RBC 2.85 L Hgb 8.4 L Hct 25.6 L MCV MCHC RDW 17.6 H Plt Count 515 H Lymph % (Auto) [place] % (Auto) Lymph # [place] # Seg Neutrophils % Seg Neuts % (Manual) Lymphocytes % (Manual) Monocytes % (Manual) Seg Neutrophils # Seg Neutrophils # Man Lymphocytes # (Manual) Monocytes # (Manual) PT INR APTT Heparin Anti-Xa Level 0.13 L POC ABG pH POC ABG pCO2 POC ABG pO2 Sodium Potassium Chloride Carbon Dioxide BUN Creatinine Glucose POC Glucose < 40 L Lactic Acid Calcium Phosphorus Magnesium Iron TIBC AST ALT Alkaline Phosphatase Lactate Dehydrogenase Total Creatine Kinase C-Reactive Protein Total Protein Albumin Prealbumin CA 19-9 Antigen Folate PTH Intact Urine WBC (Auto) Urine Creatinine Urine Chloride Urine Total Protein Fluid Glucose Fluid Total Protein Vancomycin Trough Miscellaneous Test Crossmatch 06/23/18 06/23/18 06/24/18 23:53 Unknown 00:30 WBC RBC Hgb Hct MCV MCHC RDW Plt Count Lymph % (Auto) [place] % (Auto) Lymph # [place] # Seg Neutrophils % Seg Neuts % (Manual) Lymphocytes % (Manual) Monocytes % (Manual) Seg Neutrophils # Seg Neutrophils # Man Lymphocytes # (Manual) Monocytes # (Manual) PT INR APTT Heparin Anti-Xa Level POC ABG pH POC ABG pCO2 POC ABG pO2 Sodium 148 H Potassium Chloride Carbon Dioxide 36 H BUN 57 H Creatinine 1.9 H Glucose POC Glucose 140 H Lactic Acid Calcium 8.3 L Phosphorus Magnesium Iron TIBC AST ALT Alkaline Phosphatase Lactate Dehydrogenase Total Creatine Kinase C-Reactive Protein Total Protein Albumin Prealbumin CA 19-9 Antigen Folate PTH Intact Urine WBC (Auto) 8.0 H Urine Creatinine Urine Chloride Urine Total Protein Fluid Glucose Fluid Total Protein Vancomycin Trough Miscellaneous Test Crossmatch 06/24/18 06/24/18 06/24/18 00:40 04:30 04:30 WBC 26.9 H RBC 2.79 L Hgb 8.1 L Hct 25.0 L MCV MCHC RDW 17.5 H Plt Count 487 H Lymph % (Auto) [place] % (Auto) Lymph # [place] # Seg Neutrophils % Seg Neuts % (Manual) Lymphocytes % (Manual) 6.0 L Monocytes % (Manual) 8.0 H Seg Neutrophils # Seg Neutrophils # Man 16.9 H Lymphocytes # (Manual) Monocytes # (Manual) 2.2 H PT INR APTT Heparin Anti-Xa Level 0.13 L POC ABG pH POC ABG pCO2 POC ABG pO2 Sodium 151 H Potassium Chloride Carbon Dioxide 36 H D BUN 74 H Creatinine 2.9 H Glucose 126 H POC Glucose Lactic Acid Calcium 8.2 L Phosphorus Magnesium Iron TIBC AST ALT Alkaline Phosphatase Lactate Dehydrogenase Total Creatine Kinase C-Reactive Protein Total Protein Albumin Prealbumin CA 19-9 Antigen Folate PTH Intact Urine WBC (Auto) Urine Creatinine Urine Chloride Urine Total Protein Fluid Glucose Fluid Total Protein Vancomycin Trough Miscellaneous Test Crossmatch 06/24/18 06/24/18 06/24/18 04:33 06:41 08:00 WBC RBC Hgb Hct MCV MCHC RDW Plt Count Lymph % (Auto) [place] % (Auto) Lymph # [place] # Seg Neutrophils % Seg Neuts % (Manual) Lymphocytes % (Manual) Monocytes % (Manual) Seg Neutrophils # Seg Neutrophils # Man Lymphocytes # (Manual) Monocytes # (Manual) PT INR APTT Heparin Anti-Xa Level 0.21 L POC ABG pH 7.517 H POC ABG pCO2 50.9 H POC ABG pO2 170 H Sodium Potassium Chloride Carbon Dioxide BUN Creatinine Glucose POC Glucose 140 H Lactic Acid Calcium Phosphorus Magnesium Iron TIBC AST ALT Alkaline Phosphatase Lactate Dehydrogenase Total Creatine Kinase C-Reactive Protein Total Protein Albumin Prealbumin CA 19-9 Antigen Folate PTH Intact Urine WBC (Auto) Urine Creatinine Urine Chloride Urine Total Protein Fluid Glucose Fluid Total Protein Vancomycin Trough Miscellaneous Test Crossmatch 06/24/18 06/24/18 06/24/18 12:27 14:20 18:46 WBC RBC Hgb Hct MCV MCHC RDW Plt Count Lymph % (Auto) [place] % (Auto) Lymph # [place] # Seg Neutrophils % Seg Neuts % (Manual) Lymphocytes % (Manual) Monocytes % (Manual) Seg Neutrophils # Seg Neutrophils # Man Lymphocytes # (Manual) Monocytes # (Manual) PT INR APTT Heparin Anti-Xa Level 0.28 L POC ABG pH POC ABG pCO2 POC ABG pO2 Sodium Potassium Chloride Carbon Dioxide BUN Creatinine Glucose POC Glucose 216 H 182 H Lactic Acid Calcium Phosphorus Magnesium Iron TIBC AST ALT Alkaline Phosphatase Lactate Dehydrogenase Total Creatine Kinase C-Reactive Protein Total Protein Albumin Prealbumin CA 19-9 Antigen Folate PTH Intact Urine WBC (Auto) Urine Creatinine Urine Chloride Urine Total Protein Fluid Glucose Fluid Total Protein Vancomycin Trough Miscellaneous Test Crossmatch 06/24/18 06/25/18 06/25/18 23:43 04:29 04:37 WBC RBC Hgb 8.1 L Hct 25.6 L MCV MCHC RDW Plt Count Lymph % (Auto) [place] % (Auto) Lymph # [place] # Seg Neutrophils % Seg Neuts % (Manual) Lymphocytes % (Manual) Monocytes % (Manual) Seg Neutrophils # Seg Neutrophils # Man Lymphocytes # (Manual) Monocytes # (Manual) PT INR APTT Heparin Anti-Xa Level POC ABG pH 7.534 H POC ABG pCO2 POC ABG pO2 161 H Sodium Potassium Chloride Carbon Dioxide BUN Creatinine Glucose POC Glucose 217 H Lactic Acid Calcium Phosphorus Magnesium Iron TIBC AST ALT Alkaline Phosphatase Lactate Dehydrogenase Total Creatine Kinase C-Reactive Protein Total Protein Albumin Prealbumin CA 19-9 Antigen Folate PTH Intact Urine WBC (Auto) Urine Creatinine Urine Chloride Urine Total Protein Fluid Glucose Fluid Total Protein Vancomycin Trough Miscellaneous Test Crossmatch 06/25/18 06/25/18 06/25/18 04:37 05:48 12:11 WBC RBC Hgb Hct MCV MCHC RDW Plt Count Lymph % (Auto) [place] % (Auto) Lymph # [place] # Seg Neutrophils % Seg Neuts % (Manual) Lymphocytes % (Manual) Monocytes % (Manual) Seg Neutrophils # Seg Neutrophils # Man Lymphocytes # (Manual) Monocytes # (Manual) PT INR APTT Heparin Anti-Xa Level POC ABG pH POC ABG pCO2 POC ABG pO2 Sodium Potassium 2.6 L* D Chloride Carbon Dioxide 32 H BUN 75 H Creatinine 3.1 H Glucose 244 H POC Glucose 225 H 252 H Lactic Acid Calcium Phosphorus Magnesium Iron TIBC AST ALT Alkaline Phosphatase Lactate Dehydrogenase Total Creatine Kinase C-Reactive Protein Total Protein Albumin Prealbumin CA 19-9 Antigen Folate PTH Intact Urine WBC (Auto) Urine Creatinine Urine Chloride Urine Total Protein Fluid Glucose Fluid Total Protein Vancomycin Trough Miscellaneous Test Crossmatch 06/25/18 06/25/18 06/25/18 15:58 18:12 20:30 WBC RBC Hgb 8.5 L Hct 27.6 L MCV MCHC RDW Plt Count Lymph % (Auto) [place] % (Auto) Lymph # [place] # Seg Neutrophils % Seg Neuts % (Manual) Lymphocytes % (Manual) Monocytes % (Manual) Seg Neutrophils # Seg Neutrophils # Man Lymphocytes # (Manual) Monocytes # (Manual) PT INR APTT Heparin Anti-Xa Level POC ABG pH POC ABG pCO2 POC ABG pO2 Sodium 148 H Potassium 2.4 L* Chloride Carbon Dioxide 31 H BUN 79 H Creatinine 3.0 H Glucose 152 H POC Glucose 199 H Lactic Acid Calcium 8.3 L Phosphorus Magnesium Iron TIBC AST ALT Alkaline Phosphatase Lactate Dehydrogenase Total Creatine Kinase C-Reactive Protein Total Protein Albumin Prealbumin CA 19-9 Antigen Folate PTH Intact Urine WBC (Auto) Urine Creatinine Urine Chloride Urine Total Protein Fluid Glucose Fluid Total Protein Vancomycin Trough Miscellaneous Test Crossmatch 06/26/18 06/26/18 06/26/18 04:00 04:00 04:00 WBC 26.2 H RBC 3.16 L Hgb 9.1 L Hct 28.8 L MCV MCHC RDW 18.2 H Plt Count Lymph % (Auto) [place] % (Auto) Lymph # [place] # Seg Neutrophils % Seg Neuts % (Manual) Lymphocytes % (Manual) 2.0 L Monocytes % (Manual) Seg Neutrophils # Seg Neutrophils # Man 11.5 H Lymphocytes # (Manual) 0.5 L Monocytes # (Manual) PT INR APTT Heparin Anti-Xa Level POC ABG pH POC ABG pCO2 POC ABG pO2 Sodium 146 H Potassium 3.2 L D 3.3 L Chloride 109.0 H 108.2 H Carbon Dioxide BUN 74 H 75 H Creatinine 2.9 H 2.9 H Glucose 62 L 60 L POC Glucose Lactic Acid Calcium 7.7 L 7.9 L Phosphorus Magnesium 1.60 L Iron TIBC AST ALT Alkaline Phosphatase 173 H Lactate Dehydrogenase Total Creatine Kinase C-Reactive Protein Total Protein 6.1 L Albumin 1.4 L Prealbumin CA 19-9 Antigen Folate PTH Intact Urine WBC (Auto) Urine Creatinine Urine Chloride Urine Total Protein Fluid Glucose Fluid Total Protein Vancomycin Trough Miscellaneous Test Crossmatch 06/26/18 06/26/18 06/26/18 05:57 05:59 06:22 WBC RBC Hgb Hct MCV MCHC RDW Plt Count Lymph % (Auto) [place] % (Auto) Lymph # [place] # Seg Neutrophils % Seg Neuts % (Manual) Lymphocytes % (Manual) Monocytes % (Manual) Seg Neutrophils # Seg Neutrophils # Man Lymphocytes # (Manual) Monocytes # (Manual) PT INR APTT Heparin Anti-Xa Level POC ABG pH 7.269 L POC ABG pCO2 68.0 H POC ABG pO2 73 L Sodium Potassium Chloride Carbon Dioxide BUN Creatinine Glucose POC Glucose 59 L 130 H Lactic Acid Calcium Phosphorus Magnesium Iron TIBC AST ALT Alkaline Phosphatase Lactate Dehydrogenase Total Creatine Kinase C-Reactive Protein Total Protein Albumin Prealbumin CA 19-9 Antigen Folate PTH Intact Urine WBC (Auto) Urine Creatinine Urine Chloride Urine Total Protein Fluid Glucose Fluid Total Protein Vancomycin Trough Miscellaneous Test Crossmatch 06/27/18 06/27/18 06/27/18 03:34 05:20 05:20 WBC RBC Hgb 6.7 L Hct 21.2 L D MCV MCHC RDW Plt Count Lymph % (Auto) [place] % (Auto) Lymph # [place] # Seg Neutrophils % Seg Neuts % (Manual) Lymphocytes % (Manual) Monocytes % (Manual) Seg Neutrophils # Seg Neutrophils # Man Lymphocytes # (Manual) Monocytes # (Manual) PT INR APTT Heparin Anti-Xa Level POC ABG pH 7.251 L POC ABG pCO2 63.7 H POC ABG pO2 157 H Sodium Potassium 5.9 H D Chloride Carbon Dioxide BUN 87 H Creatinine 4.4 H D Glucose 128 H POC Glucose Lactic Acid Calcium 8.1 L Phosphorus Magnesium Iron TIBC AST ALT Alkaline Phosphatase Lactate Dehydrogenase Total Creatine Kinase C-Reactive Protein Total Protein Albumin Prealbumin CA 19-9 Antigen Folate PTH Intact Urine WBC (Auto) Urine Creatinine Urine Chloride Urine Total Protein Fluid Glucose Fluid Total Protein Vancomycin Trough Miscellaneous Test Crossmatch 06/27/18 06/27/18 06/27/18 09:05 10:56 10:56 WBC RBC Hgb 6.9 L Hct 21.6 L MCV MCHC RDW Plt Count Lymph % (Auto) [place] % (Auto) Lymph # [place] # Seg Neutrophils % Seg Neuts % (Manual) Lymphocytes % (Manual) Monocytes % (Manual) Seg Neutrophils # Seg Neutrophils # Man Lymphocytes # (Manual) Monocytes # (Manual) PT INR APTT Heparin Anti-Xa Level POC ABG pH POC ABG pCO2 POC ABG pO2 Sodium Potassium 5.7 H Chloride Carbon Dioxide BUN Creatinine Glucose POC Glucose Lactic Acid Calcium Phosphorus Magnesium Iron TIBC AST ALT Alkaline Phosphatase Lactate Dehydrogenase Total Creatine Kinase C-Reactive Protein Total Protein Albumin Prealbumin CA 19-9 Antigen Folate PTH Intact Urine WBC (Auto) Urine Creatinine Urine Chloride Urine Total Protein Fluid Glucose Fluid Total Protein Vancomycin Trough Miscellaneous Test Crossmatch See Detail 06/27/18 06/27/18 06/27/18 10:56 12:07 17:33 WBC 25.2 H RBC 2.37 L Hgb 6.7 L Hct 21.6 L MCV MCHC 31 L RDW 18.0 H Plt Count Lymph % (Auto) [place] % (Auto) Lymph # [place] # Seg Neutrophils % Seg Neuts % (Manual) 97.0 H Lymphocytes % (Manual) 1.0 L Monocytes % (Manual) Seg Neutrophils # Seg Neutrophils # Man 24.4 H Lymphocytes # (Manual) 0.3 L Monocytes # (Manual) PT INR APTT Heparin Anti-Xa Level POC ABG pH POC ABG pCO2 POC ABG pO2 Sodium Potassium Chloride Carbon Dioxide BUN Creatinine Glucose POC Glucose 156 H 123 H Lactic Acid Calcium Phosphorus Magnesium Iron TIBC AST ALT Alkaline Phosphatase Lactate Dehydrogenase Total Creatine Kinase C-Reactive Protein Total Protein Albumin Prealbumin CA 19-9 Antigen Folate PTH Intact Urine WBC (Auto) Urine Creatinine Urine Chloride Urine Total Protein Fluid Glucose Fluid Total Protein Vancomycin Trough Miscellaneous Test Crossmatch 06/28/18 06/28/18 06/28/18 00:40 04:54 05:52 WBC RBC Hgb Hct MCV MCHC RDW Plt Count Lymph % (Auto) [place] % (Auto) Lymph # [place] # Seg Neutrophils % Seg Neuts % (Manual) Lymphocytes % (Manual) Monocytes % (Manual) Seg Neutrophils # Seg Neutrophils # Man Lymphocytes # (Manual) Monocytes # (Manual) PT INR APTT Heparin Anti-Xa Level POC ABG pH POC ABG pCO2 POC ABG pO2 Sodium Potassium Chloride Carbon Dioxide BUN 57 H Creatinine 3.3 H Glucose 107 H POC Glucose 127 H 117 H Lactic Acid Calcium Phosphorus Magnesium Iron TIBC AST ALT Alkaline Phosphatase Lactate Dehydrogenase Total Creatine Kinase C-Reactive Protein Total Protein Albumin Prealbumin CA 19-9 Antigen Folate PTH Intact Urine WBC (Auto) Urine Creatinine Urine Chloride Urine Total Protein Fluid Glucose Fluid Total Protein Vancomycin Trough Miscellaneous Test Crossmatch 06/28/18 06/29/18 06/29/18 09:24 04:18 04:18 WBC 21.3 H RBC 2.61 L Hgb 7.5 L 7.6 L Hct 23.0 L 23.1 L MCV MCHC RDW 17.5 H Plt Count Lymph % (Auto) [place] % (Auto) Lymph # [place] # Seg Neutrophils % Seg Neuts % (Manual) Lymphocytes % (Manual) Monocytes % (Manual) Seg Neutrophils # Seg Neutrophils # Man Lymphocytes # (Manual) Monocytes # (Manual) PT INR APTT Heparin Anti-Xa Level POC ABG pH POC ABG pCO2 POC ABG pO2 Sodium 136 L Potassium Chloride Carbon Dioxide BUN 69 H Creatinine 3.8 H Glucose POC Glucose Lactic Acid Calcium Phosphorus 5.10 H D Magnesium Iron TIBC AST ALT Alkaline Phosphatase Lactate Dehydrogenase Total Creatine Kinase C-Reactive Protein Total Protein Albumin Prealbumin CA 19-9 Antigen Folate PTH Intact Urine WBC (Auto) Urine Creatinine Urine Chloride Urine Total Protein Fluid Glucose Fluid Total Protein Vancomycin Trough Miscellaneous Test Crossmatch 06/29/18 04:28 WBC RBC Hgb Hct MCV MCHC RDW Plt Count Lymph % (Auto) [place] % (Auto) Lymph # [place] # Seg Neutrophils % Seg Neuts % (Manual) Lymphocytes % (Manual) Monocytes % (Manual) Seg Neutrophils # Seg Neutrophils # Man Lymphocytes # (Manual) Monocytes # (Manual) PT INR APTT Heparin Anti-Xa Level POC ABG pH POC ABG pCO2 46.9 H POC ABG pO2 Sodium Potassium Chloride Carbon Dioxide BUN Creatinine Glucose POC Glucose Lactic Acid Calcium Phosphorus Magnesium Iron TIBC AST ALT Alkaline Phosphatase Lactate Dehydrogenase Total Creatine Kinase C-Reactive Protein Total Protein Albumin Prealbumin CA 19-9 Antigen Folate PTH Intact Urine WBC (Auto) Urine Creatinine Urine Chloride Urine Total Protein Fluid Glucose Fluid Total Protein Vancomycin Trough Miscellaneous Test Crossmatch
--- NOTE | 2018-06-29 17:22 | Event Note ---
Date: 06/29/18 Patient was pronounced brain by neurologist. Sister was imformed and she wanted to discuss with neurology further and wanted to wait for her relatives to come back to town.
--- NOTE | 2018-06-29 17:22 | Progress Note ---
Assessment and Plan /Anoxic brain Patient evaluated by Neuologist, Dr. Ye and she discussed with patient's sister on 06/24/18 patient remained unresponsive post prolonged cardiorespiratory arrest Consulted Dr. Melendrez, Neurology for 2nd opinion. He evaluated patient and also discussed with sister on 06/25/18 Cerebral blood flow study showed minimal flow and EEG showed no brain activity Updated sister by phone, pronounced brain today by Dr Melendrez and he called the sister for update /s/p cardiorespiratory arrest. Cannot r/o aspiration event to worsen respiratory status leading to cardiorespiratory arrest on 06/23/18 also initiated on heparin drip for possible PE as he had DVT right lower ext but was not on anticoagulation because of nephrostomy tubes, major abdominal surgery. 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 -Differentiated carcinoma with squamous differentiation on pathology but unsure of exact primary /Bilateral pneumonia (possibly aspiration) -treated with abx /Bilateral moderate pleural effusion, had thoracentesis /Cardiogenic shock Patient was hypotensive post cardio-respiratory arrest. Started on Levophed as needed for BP control following arrest /Sepsis, was on Antibiotics, completed /Acute kidney injury (obstructive uropathy followed by contrast nephropathy) -started back on hemodialysis temporarily. -Had bilateral nephrostomy tubes placed 05/14/[address] Freeman. /Hyperkalemia, resolved /Anemia, s/p 6 units of PRBC transfusion so far /Acute deep venous thrombosis, was off heparin for low h/h, then resumed again for possible PE /Bowel obstruction s/p surgery -Etiology secondary to extrinsic compression from mass, placed on TPN /Moderate to severe protein calorie malnutrition, placed on TPN Disposition: Plan was for him to go to LTAC prior to cardioresp arrest. Now he is brain . Discussed with sister, Vibha Dinh in details.. Brief History: 53 y/o male admitted with c/o abd pain and urinary retention. CT abdomen showed Large pelvic mass causing urinary obstruction. bilateral nephrostomy tubes placed by IR. Repeat CT showed dilated small bowel with SBO, possibly from extrinsic compression from pelvic mass. He is s/p exploratory laparotomy and colostomy placed on 05/26/18. He required HD intermittently. he was planned to go for LTAC. On 06/23/18 he developed cardiac arrest and required intubation. He was transferred to ICU. He was evaluated by cerebral blood flow and EEG study. Clinically appears as severe anoxic brain injury/brain . Updated sister at bedside/by phone. Neurology further examined the pt clinically and confirmed brain . Family wants to be bedside for extubation. Hospitalist Physical GEN:on vent HEENT: Normocephalic, atraumatic, fixed dilated pupil Neck: No JVD Lungs:Clear to auscultation bilaterally, no crackles, no wheeze Heart:S1 and S2 +ve, no murmurs, rubs or gallop Abd: soft, mild tender, bilateral nephrostomy tubes draining, colostomy bag Ext: Bilateral lower ext edema, cold Neuro: unresponsive Subjective Date of service: 06/29/18 Principal diagnosis: anemia, sq cell ca Interval history: Pt seen and examined Pronounced brain by neurologist today discussed with sister by phone with risk mx - all questions answered Objective - Constitutional Vitals: Vital Signs - 12hr 06/29/18 06/29/18 06/29/18 05:30 05:58 06:00 Temperature Pulse Rate 83 79 79 Pulse Rate [ Left Dorsalis Pedis] Respiratory 30 H 30 H Rate Blood Pressure 100/66 102/67 102/68 O2 Sat by Pulse 100 99 Oximetry O2 Sat by Pulse Oximetry [ Bilateral Throughout] 06/29/18 06/29/18 06/29/18 06:30 07:00 07:30 Temperature Pulse Rate 79 78 82 Pulse Rate [ Left Dorsalis Pedis] Respiratory 30 H 30 H 25 H Rate Blood Pressure 107/74 107/72 134/93 O2 Sat by Pulse 99 99 100 Oximetry O2 Sat by Pulse Oximetry [ Bilateral Throughout] 06/29/18 06/29/18 06/29/18 07:38 08:00 08:30 Temperature 97.4 F L Pulse Rate 78 75 73 Pulse Rate [ 75 Left Dorsalis Pedis] Respiratory 30 H 30 H Rate Blood Pressure 134/93 105/72 88/59 O2 Sat by Pulse 99 98 96 Oximetry O2 Sat by Pulse Oximetry [ Bilateral Throughout] 06/29/18 06/29/18 06/29/18 09:00 09:30 10:00 Temperature Pulse Rate 73 73 75 Pulse Rate [ Left Dorsalis Pedis] Respiratory 30 H 30 H 30 H Rate Blood Pressure 90/62 90/60 100/69 O2 Sat by Pulse 96 96 97 Oximetry O2 Sat by Pulse Oximetry [ Bilateral Throughout] 06/29/18 06/29/18 06/29/18 10:30 11:00 11:27 Temperature Pulse Rate 73 73 75 Pulse Rate [ Left Dorsalis Pedis] Respiratory 30 H 30 H Rate Blood Pressure 92/59 82/52 100/69 O2 Sat by Pulse 96 96 97 Oximetry O2 Sat by Pulse Oximetry [ Bilateral Throughout] 06/29/18 06/29/18 06/29/18 11:30 12:00 12:30 Temperature 97.6 F Pulse Rate 73 74 74 Pulse Rate [ Left Dorsalis Pedis] Respiratory 30 H 30 H 30 H Rate Blood Pressure 95/62 96/64 99/66 O2 Sat by Pulse 97 97 97 Oximetry O2 Sat by Pulse Oximetry [ Bilateral Throughout] 06/29/18 06/29/18 06/29/18 13:00 13:15 13:30 Temperature 97.6 F Pulse Rate 73 72 72 Pulse Rate [ Left Dorsalis Pedis] Respiratory 30 H 30 H Rate Blood Pressure 92/61 107/77 77/42 O2 Sat by Pulse 96 97 Oximetry O2 Sat by Pulse 97 Oximetry [ Bilateral Throughout] 06/29/18 06/29/18 06/29/18 13:45 14:00 14:18 Temperature 97.6 F Pulse Rate 74 74 75 Pulse Rate [ Left Dorsalis Pedis] Respiratory 30 H 30 H Rate Blood Pressure 90/45 74/40 99/67 O2 Sat by Pulse 93 Oximetry O2 Sat by Pulse 97 Oximetry [ Bilateral Throughout] 06/29/18 06/29/18 06/29/18 14:30 15:00 15:30 Temperature Pulse Rate 74 74 75 Pulse Rate [ Left Dorsalis Pedis] Respiratory 30 H 30 H 30 H Rate Blood Pressure 95/63 98/66 105/73 O2 Sat by Pulse 96 96 97 Oximetry O2 Sat by Pulse Oximetry [ Bilateral Throughout] 06/29/18 06/29/18 06/29/18 15:51 16:00 16:30 Temperature 97.2 F L 97.2 F L Pulse Rate 72 71 Pulse Rate [ Left Dorsalis Pedis] Respiratory 30 H 30 H Rate Blood Pressure 102/70 107/73 O2 Sat by Pulse 97 97 Oximetry O2 Sat by Pulse Oximetry [ Bilateral Throughout] 06/29/18 06/29/18 16:54 17:00 Temperature Pulse Rate 72 71 Pulse Rate [ Left Dorsalis Pedis] Respiratory 30 H Rate Blood Pressure 92/59 102/72 O2 Sat by Pulse 100 100 Oximetry O2 Sat by Pulse Oximetry [ Bilateral Throughout] - Labs CBC & Chem 7: 06/29/18 04:18 06/30/18 04:02 Labs: Abnormal lab results 06/29/18 06/29/18 06/29/18 Range/Units 04:18 04:18 04:28 Hgb 7.6 L (11.8-15.2) gm/dl Hct 23.1 L (35.5-45.6) % POC ABG pCO2 46.9 H (35-45) Sodium 136 L (137-145) mmol/L BUN 69 H (9-20) mg/dL Creatinine 3.8 H (0.8-1.5) mg/dL Phosphorus 5.10 H D (2.5-4.5) mg/dL
[2018-06-29] MEDS ORDERED: TPN ADULT 2,016 ML IV SCH (20:00)
[2018-06-30 05:20] LABS: Calcium 8.7 mg/dL (8.4-10.2)
[2018-06-30 08:11] VITALS: BP 68/38
--- NOTE | 2018-06-30 08:26 | Progress Note ---
Subjective Date of service: 06/30/18 Principal diagnosis: anemia, sq cell ca Interval history: see my prior note about lack of cerebral ( brain) activity- the sister was called and I went into my clinical decision she understands this spoke with nursing staff and the sister had one residual question that I have no direct answer to- hopefully once this is dealt with the sister will acknowledge that artificial support needs to be removed Objective - Vital Sign Vital Signs - 12hr 06/29/18 06/29/18 06/29/18 20:45 21:00 22:00 Pulse Rate 65 65 67 Respiratory 30 H 30 H Rate Blood Pressure 112/72 90/59 91/63 O2 Sat by Pulse 99 99 98 Oximetry 06/29/18 06/30/18 06/30/18 23:00 00:00 00:39 Pulse Rate 67 68 68 Respiratory 27 H 30 H Rate Blood Pressure 83/54 88/55 85/55 O2 Sat by Pulse 99 99 99 Oximetry 06/30/18 06/30/18 06/30/18 01:00 02:00 03:00 Pulse Rate 70 71 73 Respiratory 30 H 26 H 30 H Rate Blood Pressure 85/54 83/50 86/53 O2 Sat by Pulse 99 99 99 Oximetry 06/30/18 06/30/18 06/30/18 04:00 05:00 06:00 Pulse Rate 73 78 78 Respiratory 30 H 30 H 30 H Rate Blood Pressure 81/50 100/62 88/56 O2 Sat by Pulse 99 100 99 Oximetry 06/30/18 08:00 Pulse Rate 78 Respiratory Rate Blood Pressure 68/38 O2 Sat by Pulse 99 Oximetry - Laboratory Findings CBC and BMP: 06/29/18 04:18 06/30/18 04:02 Abnormal Lab Findings: Abnormal Labs 05/13/18 05/13/18 05/13/18 04:27 04:27 19:39 WBC RBC 3.13 L Hgb 9.4 L Hct 26.8 L MCV MCHC 35 H RDW Plt Count Lymph % (Auto) [place] % (Auto) 9.6 H Lymph # [place] # Seg Neutrophils % Seg Neuts % (Manual) Lymphocytes % (Manual) Monocytes % (Manual) Seg Neutrophils # Seg Neutrophils # Man Lymphocytes # (Manual) Monocytes # (Manual) PT INR APTT Heparin Anti-Xa Level POC ABG pH POC ABG pCO2 POC ABG pO2 Sodium 132 L Potassium 5.5 H Chloride 94.1 L Carbon Dioxide 19 L BUN 72 H Creatinine 14.4 H Glucose POC Glucose Lactic Acid Calcium Phosphorus Magnesium Iron TIBC AST ALT Alkaline Phosphatase Lactate Dehydrogenase Total Creatine Kinase C-Reactive Protein Total Protein Albumin 2.8 L Prealbumin CA 19-9 Antigen Folate PTH Intact Urine WBC (Auto) Urine Creatinine 66.0 H Urine Chloride 27.8 L Urine Total Protein 24 H Fluid Glucose Fluid Total Protein Vancomycin Trough Miscellaneous Test Crossmatch 05/13/18 05/14/18 05/14/18 20:00 05:05 05:05 WBC RBC Hgb Hct MCV MCHC RDW Plt Count Lymph % (Auto) [place] % (Auto) Lymph # [place] # Seg Neutrophils % Seg Neuts % (Manual) Lymphocytes % (Manual) Monocytes % (Manual) Seg Neutrophils # Seg Neutrophils # Man Lymphocytes # (Manual) Monocytes # (Manual) PT INR APTT Heparin Anti-Xa Level POC ABG pH POC ABG pCO2 POC ABG pO2 Sodium 132 L 131 L Potassium 5.2 H 5.8 H Chloride 93.0 L 95.6 L Carbon Dioxide 19 L 20 L BUN 74 H 81 H Creatinine 15.0 H 16.6 H Glucose 134 H 127 H POC Glucose Lactic Acid Calcium 8.2 L 7.9 L Phosphorus 6.30 H Magnesium Iron TIBC AST ALT Alkaline Phosphatase Lactate Dehydrogenase Total Creatine Kinase 236 H C-Reactive Protein Total Protein Albumin Prealbumin CA 19-9 Antigen Folate PTH Intact 65.37 H Urine WBC (Auto) Urine Creatinine Urine Chloride Urine Total Protein Fluid Glucose Fluid Total Protein Vancomycin Trough Miscellaneous Test Crossmatch 05/14/18 05/14/18 05/14/18 09:28 10:56 13:29 WBC RBC Hgb Hct MCV MCHC RDW Plt Count Lymph % (Auto) [place] % (Auto) Lymph # [place] # Seg Neutrophils % Seg Neuts % (Manual) Lymphocytes % (Manual) Monocytes % (Manual) Seg Neutrophils # Seg Neutrophils # Man Lymphocytes # (Manual) Monocytes # (Manual) PT INR APTT 38.2 H Heparin Anti-Xa Level POC ABG pH POC ABG pCO2 POC ABG pO2 Sodium Potassium Chloride Carbon Dioxide BUN Creatinine Glucose POC Glucose 127 H 126 H Lactic Acid Calcium Phosphorus Magnesium Iron TIBC AST ALT Alkaline Phosphatase Lactate Dehydrogenase Total Creatine Kinase C-Reactive Protein Total Protein Albumin Prealbumin CA 19-9 Antigen Folate PTH Intact Urine WBC (Auto) Urine Creatinine Urine Chloride Urine Total Protein Fluid Glucose Fluid Total Protein Vancomycin Trough Miscellaneous Test Crossmatch 05/15/18 05/15/18 05/16/18 08:06 08:06 07:02 WBC RBC 2.84 L 2.74 L Hgb 8.5 L 8.5 L Hct 24.2 L 23.5 L MCV MCHC 35 H 36 H RDW Plt Count Lymph % (Auto) [place] % (Auto) 10.4 H 11.0 H Lymph # 1.1 L [place] # 0.9 H Seg Neutrophils % 72.6 H Seg Neuts % (Manual) Lymphocytes % (Manual) Monocytes % (Manual) Seg Neutrophils # Seg Neutrophils # Man Lymphocytes # (Manual) Monocytes # (Manual) PT INR APTT Heparin Anti-Xa Level POC ABG pH POC ABG pCO2 POC ABG pO2 Sodium Potassium Chloride Carbon Dioxide 19 L BUN 66 H Creatinine 12.0 H Glucose 115 H POC Glucose Lactic Acid Calcium 8.1 L Phosphorus Magnesium Iron TIBC AST ALT Alkaline Phosphatase Lactate Dehydrogenase Total Creatine Kinase C-Reactive Protein Total Protein Albumin Prealbumin CA 19-9 Antigen Folate PTH Intact Urine WBC (Auto) Urine Creatinine Urine Chloride Urine Total Protein Fluid Glucose Fluid Total Protein Vancomycin Trough Miscellaneous Test Crossmatch 05/16/18 05/16/18 05/17/18 07:02 07:02 05:08 WBC RBC 2.78 L Hgb 8.2 L Hct 23.9 L MCV MCHC RDW Plt Count Lymph % (Auto) [place] % (Auto) 13.9 H Lymph # [place] # 0.9 H Seg Neutrophils % Seg Neuts % (Manual) Lymphocytes % (Manual) Monocytes % (Manual) Seg Neutrophils # Seg Neutrophils # Man Lymphocytes # (Manual) Monocytes # (Manual) PT INR APTT Heparin Anti-Xa Level POC ABG pH POC ABG pCO2 POC ABG pO2 Sodium Potassium Chloride Carbon Dioxide BUN 28 H Creatinine 2.4 H D Glucose POC Glucose Lactic Acid Calcium 8.3 L Phosphorus Magnesium 1.50 L Iron 24 L TIBC 160 L AST ALT Alkaline Phosphatase Lactate Dehydrogenase Total Creatine Kinase C-Reactive Protein Total Protein Albumin Prealbumin CA 19-9 Antigen Folate 5.39 L PTH Intact Urine WBC (Auto) Urine Creatinine Urine Chloride Urine Total Protein Fluid Glucose Fluid Total Protein Vancomycin Trough Miscellaneous Test Crossmatch 05/17/18 05/18/18 05/18/18 05:08 05:57 05:57 WBC RBC 2.79 L Hgb 8.3 L Hct 24.0 L MCV MCHC 35 H RDW Plt Count Lymph % (Auto) [place] % (Auto) 11.8 H Lymph # [place] # 0.9 H Seg Neutrophils % Seg Neuts % (Manual) Lymphocytes % (Manual) Monocytes % (Manual) Seg Neutrophils # Seg Neutrophils # Man Lymphocytes # (Manual) Monocytes # (Manual) PT INR APTT Heparin Anti-Xa Level POC ABG pH POC ABG pCO2 POC ABG pO2 Sodium Potassium Chloride Carbon Dioxide BUN Creatinine Glucose POC Glucose Lactic Acid Calcium 7.7 L 8.0 L Phosphorus Magnesium 1.60 L Iron TIBC AST ALT Alkaline Phosphatase Lactate Dehydrogenase Total Creatine Kinase C-Reactive Protein Total Protein Albumin Prealbumin CA 19-9 Antigen Folate PTH Intact Urine WBC (Auto) Urine Creatinine Urine Chloride Urine Total Protein Fluid Glucose Fluid Total Protein Vancomycin Trough Miscellaneous Test Crossmatch 05/19/18 05/19/18 05/20/18 05:33 05:33 05:38 WBC RBC 2.95 L Hgb 8.8 L Hct 25.8 L MCV MCHC RDW Plt Count Lymph % (Auto) 10.1 L [place] % (Auto) Lymph # 1.1 L [place] # Seg Neutrophils % 85.2 H Seg Neuts % (Manual) Lymphocytes % (Manual) Monocytes % (Manual) Seg Neutrophils # 9.0 H Seg Neutrophils # Man Lymphocytes # (Manual) Monocytes # (Manual) PT INR APTT Heparin Anti-Xa Level POC ABG pH POC ABG pCO2 POC ABG pO2 Sodium 135 L Potassium Chloride Carbon Dioxide BUN Creatinine Glucose 132 H POC Glucose Lactic Acid Calcium 7.8 L 8.3 L Phosphorus Magnesium 1.40 L Iron TIBC AST ALT Alkaline Phosphatase Lactate Dehydrogenase Total Creatine Kinase C-Reactive Protein Total Protein Albumin Prealbumin CA 19-9 Antigen Folate PTH Intact Urine WBC (Auto) Urine Creatinine Urine Chloride Urine Total Protein Fluid Glucose Fluid Total Protein Vancomycin Trough Miscellaneous Test Crossmatch 05/21/18 05/21/18 05/22/18 04:46 15:30 06:49 WBC 20.0 H RBC 2.70 L Hgb 7.8 L Hct 23.3 L MCV MCHC RDW Plt Count Lymph % (Auto) [place] % (Auto) Lymph # [place] # Seg Neutrophils % Seg Neuts % (Manual) 85.0 H Lymphocytes % (Manual) 4.0 L Monocytes % (Manual) Seg Neutrophils # Seg Neutrophils # Man 17.0 H Lymphocytes # (Manual) 0.8 L Monocytes # (Manual) PT INR APTT Heparin Anti-Xa Level POC ABG pH POC ABG pCO2 POC ABG pO2 Sodium 135 L Potassium 3.5 L Chloride Carbon Dioxide 21 L BUN 22 H Creatinine Glucose POC Glucose Lactic Acid Calcium 8.1 L Phosphorus Magnesium Iron TIBC AST ALT Alkaline Phosphatase Lactate Dehydrogenase Total Creatine Kinase C-Reactive Protein Total Protein Albumin Prealbumin CA 19-9 Antigen Folate PTH Intact Urine WBC (Auto) 28.0 H Urine Creatinine Urine Chloride Urine Total Protein Fluid Glucose Fluid Total Protein Vancomycin Trough Miscellaneous Test Crossmatch 05/22/18 05/22/18 05/23/18 06:49 11:23 09:03 WBC RBC Hgb Hct MCV MCHC RDW Plt Count Lymph % (Auto) [place] % (Auto) Lymph # [place] # Seg Neutrophils % Seg Neuts % (Manual) Lymphocytes % (Manual) Monocytes % (Manual) Seg Neutrophils # Seg Neutrophils # Man Lymphocytes # (Manual) Monocytes # (Manual) PT INR APTT Heparin Anti-Xa Level POC ABG pH POC ABG pCO2 POC ABG pO2 Sodium 134 L Potassium 3.5 L Chloride Carbon Dioxide 21 L BUN 35 H 36 H Creatinine 1.7 H Glucose 107 H POC Glucose Lactic Acid Calcium 7.9 L Phosphorus Magnesium 2.50 H Iron TIBC AST ALT Alkaline Phosphatase Lactate Dehydrogenase Total Creatine Kinase C-Reactive Protein Total Protein Albumin Prealbumin CA 19-9 Antigen Folate PTH Intact Urine WBC (Auto) Urine Creatinine Urine Chloride Urine Total Protein Fluid Glucose Fluid Total Protein Vancomycin Trough Miscellaneous Test Crossmatch See Detail 05/23/18 05/23/18 05/23/18 09:03 09:03 17:34 WBC 26.3 H RBC 3.57 L Hgb 10.4 L Hct 31.1 L D MCV MCHC RDW Plt Count Lymph % (Auto) [place] % (Auto) Lymph # [place] # Seg Neutrophils % Seg Neuts % (Manual) Lymphocytes % (Manual) Monocytes % (Manual) Seg Neutrophils # Seg Neutrophils # Man Lymphocytes # (Manual) Monocytes # (Manual) PT 18.3 H INR 1.43 H APTT 40.0 H Heparin Anti-Xa Level POC ABG pH POC ABG pCO2 POC ABG pO2 Sodium Potassium Chloride Carbon Dioxide BUN Creatinine Glucose POC Glucose 108 H Lactic Acid Calcium Phosphorus Magnesium Iron TIBC AST ALT Alkaline Phosphatase Lactate Dehydrogenase Total Creatine Kinase C-Reactive Protein Total Protein Albumin Prealbumin CA 19-9 Antigen Folate PTH Intact Urine WBC (Auto) Urine Creatinine Urine Chloride Urine Total Protein Fluid Glucose Fluid Total Protein Vancomycin Trough Miscellaneous Test Crossmatch 05/23/18 05/24/18 05/24/18 21:14 04:43 08:04 WBC RBC Hgb Hct MCV MCHC RDW Plt Count Lymph % (Auto) [place] % (Auto) Lymph # [place] # Seg Neutrophils % Seg Neuts % (Manual) Lymphocytes % (Manual) Monocytes % (Manual) Seg Neutrophils # Seg Neutrophils # Man Lymphocytes # (Manual) Monocytes # (Manual) PT INR APTT Heparin Anti-Xa Level POC ABG pH POC ABG pCO2 POC ABG pO2 Sodium 146 H Potassium Chloride 108.6 H Carbon Dioxide BUN 33 H Creatinine Glucose 109 H POC Glucose 110 H 106 H Lactic Acid Calcium 8.3 L Phosphorus Magnesium 2.50 H Iron TIBC AST ALT Alkaline Phosphatase Lactate Dehydrogenase Total Creatine Kinase C-Reactive Protein Total Protein Albumin Prealbumin CA 19-9 Antigen Folate PTH Intact Urine WBC (Auto) Urine Creatinine Urine Chloride Urine Total Protein Fluid Glucose Fluid Total Protein Vancomycin Trough Miscellaneous Test Crossmatch 05/25/18 05/25/18 05/25/18 05:42 05:49 19:50 WBC RBC Hgb Hct MCV MCHC RDW Plt Count Lymph % (Auto) [place] % (Auto) Lymph # [place] # Seg Neutrophils % Seg Neuts % (Manual) Lymphocytes % (Manual) Monocytes % (Manual) Seg Neutrophils # Seg Neutrophils # Man Lymphocytes # (Manual) Monocytes # (Manual) PT INR APTT Heparin Anti-Xa Level POC ABG pH POC ABG pCO2 POC ABG pO2 Sodium 150 H Potassium Chloride 112.5 H Carbon Dioxide BUN 34 H Creatinine Glucose 102 H POC Glucose 107 H Lactic Acid Calcium Phosphorus Magnesium Iron TIBC AST ALT Alkaline Phosphatase Lactate Dehydrogenase Total Creatine Kinase C-Reactive Protein 34.50 H Total Protein Albumin Prealbumin CA 19-9 Antigen Folate PTH Intact Urine WBC (Auto) Urine Creatinine Urine Chloride Urine Total Protein Fluid Glucose Fluid Total Protein Vancomycin Trough Miscellaneous Test Crossmatch 05/25/18 05/25/18 05/25/18 19:50 21:05 22:46 WBC RBC Hgb Hct MCV MCHC RDW Plt Count Lymph % (Auto) [place] % (Auto) Lymph # [place] # Seg Neutrophils % Seg Neuts % (Manual) Lymphocytes % (Manual) Monocytes % (Manual) Seg Neutrophils # Seg Neutrophils # Man Lymphocytes # (Manual) Monocytes # (Manual) PT INR APTT Heparin Anti-Xa Level POC ABG pH 7.483 H POC ABG pCO2 24.0 L POC ABG pO2 72 L Sodium Potassium Chloride Carbon Dioxide BUN Creatinine Glucose POC Glucose Lactic Acid 5.90 H* Calcium Phosphorus Magnesium Iron TIBC AST ALT Alkaline Phosphatase Lactate Dehydrogenase Total Creatine Kinase C-Reactive Protein Total Protein Albumin Prealbumin CA 19-9 Antigen Folate PTH Intact Urine WBC (Auto) Urine Creatinine Urine Chloride Urine Total Protein Fluid Glucose Fluid Total Protein Vancomycin Trough 25.1 H Miscellaneous Test Crossmatch 05/25/18 05/26/18 05/26/18 22:46 00:21 00:51 WBC RBC Hgb Hct MCV MCHC RDW Plt Count Lymph % (Auto) [place] % (Auto) Lymph # [place] # Seg Neutrophils % Seg Neuts % (Manual) Lymphocytes % (Manual) Monocytes % (Manual) Seg Neutrophils # Seg Neutrophils # Man Lymphocytes # (Manual) Monocytes # (Manual) PT INR APTT Heparin Anti-Xa Level POC ABG pH POC ABG pCO2 POC ABG pO2 Sodium Potassium Chloride Carbon Dioxide BUN Creatinine Glucose POC Glucose 133 H Lactic Acid 8.10 H* 6.20 H* Calcium Phosphorus Magnesium Iron TIBC AST ALT Alkaline Phosphatase Lactate Dehydrogenase Total Creatine Kinase C-Reactive Protein Total Protein Albumin Prealbumin CA 19-9 Antigen Folate PTH Intact Urine WBC (Auto) Urine Creatinine Urine Chloride Urine Total Protein Fluid Glucose Fluid Total Protein Vancomycin Trough Miscellaneous Test Crossmatch 05/26/18 05/26/18 05/26/18 01:13 02:24 02:24 WBC 18.7 H RBC Hgb 11.6 L Hct MCV MCHC RDW Plt Count Lymph % (Auto) [place] % (Auto) Lymph # [place] # Seg Neutrophils % Seg Neuts % (Manual) Lymphocytes % (Manual) Monocytes % (Manual) Seg Neutrophils # Seg Neutrophils # Man Lymphocytes # (Manual) Monocytes # (Manual) PT INR APTT Heparin Anti-Xa Level POC ABG pH POC ABG pCO2 POC ABG pO2 Sodium 147 H Potassium 6.2 H* D Chloride 111.9 H Carbon Dioxide 19 L BUN 80 H Creatinine 5.1 H D Glucose 112 H POC Glucose Lactic Acid 5.20 H* Calcium 6.7 L D Phosphorus Magnesium Iron TIBC AST ALT Alkaline Phosphatase Lactate Dehydrogenase Total Creatine Kinase C-Reactive Protein Total Protein Albumin Prealbumin CA 19-9 Antigen Folate PTH Intact Urine WBC (Auto) Urine Creatinine Urine Chloride Urine Total Protein Fluid Glucose Fluid Total Protein Vancomycin Trough Miscellaneous Test Crossmatch 05/26/18 05/26/18 05/26/18 04:20 04:20 05:39 WBC RBC Hgb Hct MCV MCHC RDW Plt Count Lymph % (Auto) [place] % (Auto) Lymph # [place] # Seg Neutrophils % Seg Neuts % (Manual) Lymphocytes % (Manual) Monocytes % (Manual) Seg Neutrophils # Seg Neutrophils # Man Lymphocytes # (Manual) Monocytes # (Manual) PT INR APTT Heparin Anti-Xa Level POC ABG pH POC ABG pCO2 POC ABG pO2 Sodium 150 H Potassium Chloride 110.0 H Carbon Dioxide 19 L BUN 66 H Creatinine Glucose 166 H POC Glucose 187 H Lactic Acid 5.10 H* Calcium 6.9 L Phosphorus 6.70 H D Magnesium Iron TIBC AST ALT Alkaline Phosphatase Lactate Dehydrogenase Total Creatine Kinase C-Reactive Protein Total Protein Albumin Prealbumin CA 19-9 Antigen Folate PTH Intact Urine WBC (Auto) Urine Creatinine Urine Chloride Urine Total Protein Fluid Glucose Fluid Total Protein Vancomycin Trough Miscellaneous Test Crossmatch 05/26/18 05/26/18 05/26/18 06:02 07:29 11:00 WBC RBC Hgb Hct MCV MCHC RDW Plt Count Lymph % (Auto) [place] % (Auto) Lymph # [place] # Seg Neutrophils % Seg Neuts % (Manual) Lymphocytes % (Manual) Monocytes % (Manual) Seg Neutrophils # Seg Neutrophils # Man Lymphocytes # (Manual) Monocytes # (Manual) PT INR APTT Heparin Anti-Xa Level POC ABG pH POC ABG pCO2 28.8 L POC ABG pO2 Sodium Potassium Chloride Carbon Dioxide BUN Creatinine Glucose POC Glucose Lactic Acid 4.80 H* 3.80 H* Calcium Phosphorus Magnesium Iron TIBC AST ALT Alkaline Phosphatase Lactate Dehydrogenase Total Creatine Kinase C-Reactive Protein Total Protein Albumin Prealbumin CA 19-9 Antigen Folate PTH Intact Urine WBC (Auto) Urine Creatinine Urine Chloride Urine Total Protein Fluid Glucose Fluid Total Protein Vancomycin Trough Miscellaneous Test Crossmatch 05/26/18 05/26/18 05/26/18 11:01 12:28 18:00 WBC RBC Hgb Hct MCV MCHC RDW Plt Count Lymph % (Auto) [place] % (Auto) Lymph # [place] # Seg Neutrophils % Seg Neuts % (Manual) Lymphocytes % (Manual) Monocytes % (Manual) Seg Neutrophils # Seg Neutrophils # Man Lymphocytes # (Manual) Monocytes # (Manual) PT INR APTT Heparin Anti-Xa Level POC ABG pH POC ABG pCO2 POC ABG pO2 Sodium 150 H 151 H Potassium 5.3 H D 6.1 H* Chloride 110.3 H 117.0 H Carbon Dioxide 21 L 20 L BUN 75 H 77 H Creatinine 4.3 H D 4.6 H Glucose 161 H POC Glucose 114 H Lactic Acid Calcium 7.5 L 6.7 L Phosphorus Magnesium Iron TIBC AST 1041 H ALT 406 H Alkaline Phosphatase 281 H Lactate Dehydrogenase Total Creatine Kinase C-Reactive Protein Total Protein 4.4 L Albumin 1.3 L Prealbumin CA 19-9 Antigen Folate PTH Intact Urine WBC (Auto) Urine Creatinine Urine Chloride Urine Total Protein Fluid Glucose Fluid Total Protein Vancomycin Trough Miscellaneous Test Crossmatch 05/26/18 05/26/18 05/27/18 18:02 19:17 01:01 WBC 21.7 H RBC 2.70 L Hgb 7.8 L D Hct 24.6 L D MCV MCHC RDW 15.3 H Plt Count Lymph % (Auto) [place] % (Auto) Lymph # [place] # Seg Neutrophils % Seg Neuts % (Manual) 94.0 H Lymphocytes % (Manual) 3.0 L Monocytes % (Manual) Seg Neutrophils # Seg Neutrophils # Man 20.4 H Lymphocytes # (Manual) 0.7 L Monocytes # (Manual) PT INR APTT Heparin Anti-Xa Level POC ABG pH 7.159 L 7.205 L POC ABG pCO2 54.5 H 53.0 H POC ABG pO2 252 H Sodium Potassium Chloride Carbon Dioxide BUN Creatinine Glucose POC Glucose Lactic Acid Calcium Phosphorus Magnesium Iron TIBC AST ALT Alkaline Phosphatase Lactate Dehydrogenase Total Creatine Kinase C-Reactive Protein Total Protein Albumin Prealbumin CA 19-9 Antigen Folate PTH Intact Urine WBC (Auto) Urine Creatinine Urine Chloride Urine Total Protein Fluid Glucose Fluid Total Protein Vancomycin Trough Miscellaneous Test Crossmatch 05/27/18 05/27/18 05/27/18 05:15 05:15 06:11 WBC 24.9 H RBC 2.86 L Hgb 8.1 L Hct 25.9 L MCV MCHC RDW 15.5 H Plt Count Lymph % (Auto) [place] % (Auto) Lymph # [place] # Seg Neutrophils % Seg Neuts % (Manual) Lymphocytes % (Manual) Monocytes % (Manual) Seg Neutrophils # Seg Neutrophils # Man Lymphocytes # (Manual) Monocytes # (Manual) PT INR APTT Heparin Anti-Xa Level POC ABG pH 7.265 L POC ABG pCO2 46.2 H POC ABG pO2 111 H Sodium 149 H Potassium 6.9 H* Chloride 113.5 H Carbon Dioxide BUN 89 H Creatinine 5.2 H Glucose 118 H POC Glucose Lactic Acid Calcium 7.0 L Phosphorus 9.70 H D Magnesium Iron TIBC AST 876 H ALT 408 H Alkaline Phosphatase Lactate Dehydrogenase Total Creatine Kinase C-Reactive Protein Total Protein 5.2 L Albumin 1.5 L Prealbumin CA 19-9 Antigen Folate PTH Intact Urine WBC (Auto) Urine Creatinine Urine Chloride Urine Total Protein Fluid Glucose Fluid Total Protein Vancomycin Trough Miscellaneous Test Crossmatch 05/27/18 05/27/18 05/27/18 08:48 10:22 10:22 WBC RBC Hgb Hct MCV MCHC RDW Plt Count Lymph % (Auto) [place] % (Auto) Lymph # [place] # Seg Neutrophils % Seg Neuts % (Manual) Lymphocytes % (Manual) Monocytes % (Manual) Seg Neutrophils # Seg Neutrophils # Man Lymphocytes # (Manual) Monocytes # (Manual) PT INR APTT Heparin Anti-Xa Level POC ABG pH POC ABG pCO2 POC ABG pO2 Sodium 146 H Potassium 6.1 H* Chloride 108.2 H Carbon Dioxide 21 L BUN 88 H Creatinine 5.6 H Glucose 163 H POC Glucose 164 H Lactic Acid Calcium 6.7 L Phosphorus Magnesium Iron TIBC AST ALT Alkaline Phosphatase Lactate Dehydrogenase Total Creatine Kinase C-Reactive Protein 40.70 H Total Protein Albumin Prealbumin CA 19-9 Antigen Folate PTH Intact Urine WBC (Auto) Urine Creatinine Urine Chloride Urine Total Protein Fluid Glucose Fluid Total Protein Vancomycin Trough Miscellaneous Test Crossmatch 05/27/18 05/27/18 05/27/18 13:02 17:39 23:27 WBC RBC Hgb Hct MCV MCHC RDW Plt Count Lymph % (Auto) [place] % (Auto) Lymph # [place] # Seg Neutrophils % Seg Neuts % (Manual) Lymphocytes % (Manual) Monocytes % (Manual) Seg Neutrophils # Seg Neutrophils # Man Lymphocytes # (Manual) Monocytes # (Manual) PT INR APTT Heparin Anti-Xa Level POC ABG pH POC ABG pCO2 POC ABG pO2 Sodium Potassium Chloride Carbon Dioxide BUN Creatinine Glucose POC Glucose 59 L 132 H Lactic Acid Calcium Phosphorus Magnesium Iron TIBC AST ALT Alkaline Phosphatase Lactate Dehydrogenase Total Creatine Kinase C-Reactive Protein Total Protein Albumin Prealbumin CA 19-9 Antigen Folate PTH Intact Urine WBC (Auto) Urine Creatinine Urine Chloride Urine Total Protein Fluid Glucose Fluid Total Protein Vancomycin Trough Miscellaneous Test Flexitest 1 H Crossmatch 05/27/18 05/28/18 05/28/18 Unknown 04:32 05:00 WBC RBC Hgb Hct MCV MCHC RDW Plt Count Lymph % (Auto) [place] % (Auto) Lymph # [place] # Seg Neutrophils % Seg Neuts % (Manual) Lymphocytes % (Manual) Monocytes % (Manual) Seg Neutrophils # Seg Neutrophils # Man Lymphocytes # (Manual) Monocytes # (Manual) PT INR APTT Heparin Anti-Xa Level POC ABG pH POC ABG pCO2 POC ABG pO2 134 H Sodium Potassium Chloride Carbon Dioxide BUN 69 H Creatinine 4.4 H Glucose 118 H POC Glucose Lactic Acid Calcium 8.0 L D Phosphorus 6.80 H D Magnesium Iron TIBC AST ALT Alkaline Phosphatase Lactate Dehydrogenase Total Creatine Kinase C-Reactive Protein Total Protein Albumin Prealbumin CA 19-9 Antigen Folate PTH Intact Urine WBC (Auto) 120.0 H Urine Creatinine Urine Chloride Urine Total Protein Fluid Glucose Fluid Total Protein Vancomycin Trough Miscellaneous Test Crossmatch 05/28/18 05/28/18 05/28/18 05:00 05:27 13:04 WBC 26.5 H RBC 2.69 L Hgb 7.7 L Hct 23.6 L MCV MCHC RDW Plt Count Lymph % (Auto) [place] % (Auto) Lymph # [place] # Seg Neutrophils % Seg Neuts % (Manual) 96.0 H Lymphocytes % (Manual) 0 L Monocytes % (Manual) Seg Neutrophils # Seg Neutrophils # Man 25.4 H Lymphocytes # (Manual) 0.0 L Monocytes # (Manual) PT INR APTT Heparin Anti-Xa Level POC ABG pH POC ABG pCO2 POC ABG pO2 Sodium Potassium Chloride Carbon Dioxide BUN Creatinine Glucose POC Glucose 128 H 155 H Lactic Acid Calcium Phosphorus Magnesium Iron TIBC AST ALT Alkaline Phosphatase Lactate Dehydrogenase Total Creatine Kinase C-Reactive Protein Total Protein Albumin Prealbumin CA 19-9 Antigen Folate PTH Intact Urine WBC (Auto) Urine Creatinine Urine Chloride Urine Total Protein Fluid Glucose Fluid Total Protein Vancomycin Trough Miscellaneous Test Crossmatch 05/28/18 05/29/18 05/29/18 17:56 03:35 04:00 WBC RBC Hgb Hct MCV MCHC RDW Plt Count Lymph % (Auto) [place] % (Auto) Lymph # [place] # Seg Neutrophils % Seg Neuts % (Manual) Lymphocytes % (Manual) Monocytes % (Manual) Seg Neutrophils # Seg Neutrophils # Man Lymphocytes # (Manual) Monocytes # (Manual) PT INR APTT Heparin Anti-Xa Level POC ABG pH 7.471 H POC ABG pCO2 POC ABG pO2 78 L Sodium Potassium Chloride Carbon Dioxide BUN 50 H Creatinine 3.9 H Glucose POC Glucose 110 H Lactic Acid Calcium 7.7 L Phosphorus Magnesium 1.50 L Iron TIBC AST 218 H ALT 204 H Alkaline Phosphatase Lactate Dehydrogenase Total Creatine Kinase C-Reactive Protein Total Protein 5.4 L Albumin 1.6 L Prealbumin CA 19-9 Antigen Folate PTH Intact Urine WBC (Auto) Urine Creatinine Urine Chloride Urine Total Protein Fluid Glucose Fluid Total Protein Vancomycin Trough Miscellaneous Test Crossmatch 05/29/18 05/29/18 05/30/18 11:51 23:56 04:54 WBC RBC Hgb Hct MCV MCHC RDW Plt Count Lymph % (Auto) [place] % (Auto) Lymph # [place] # Seg Neutrophils % Seg Neuts % (Manual) Lymphocytes % (Manual) Monocytes % (Manual) Seg Neutrophils # Seg Neutrophils # Man Lymphocytes # (Manual) Monocytes # (Manual) PT INR APTT Heparin Anti-Xa Level POC ABG pH POC ABG pCO2 POC ABG pO2 Sodium Potassium Chloride Carbon Dioxide BUN Creatinine Glucose POC Glucose 131 H 119 H 115 H Lactic Acid Calcium Phosphorus Magnesium Iron TIBC AST ALT Alkaline Phosphatase Lactate Dehydrogenase Total Creatine Kinase C-Reactive Protein Total Protein Albumin Prealbumin CA 19-9 Antigen Folate PTH Intact Urine WBC (Auto) Urine Creatinine Urine Chloride Urine Total Protein Fluid Glucose Fluid Total Protein Vancomycin Trough Miscellaneous Test Crossmatch 05/30/18 05/30/18 05/30/18 05:07 05:15 05:15 WBC 16.2 H RBC 2.53 L Hgb 7.4 L Hct 21.9 L MCV MCHC RDW Plt Count Lymph % (Auto) [place] % (Auto) Lymph # [place] # Seg Neutrophils % Seg Neuts % (Manual) Lymphocytes % (Manual) Monocytes % (Manual) Seg Neutrophils # Seg Neutrophils # Man Lymphocytes # (Manual) Monocytes # (Manual) PT INR APTT Heparin Anti-Xa Level POC ABG pH POC ABG pCO2 34.5 L POC ABG pO2 133 H Sodium 135 L Potassium Chloride 97.5 L Carbon Dioxide BUN 69 H Creatinine 5.4 H Glucose 105 H POC Glucose Lactic Acid Calcium 7.5 L Phosphorus 5.30 H D Magnesium Iron TIBC AST ALT Alkaline Phosphatase Lactate Dehydrogenase Total Creatine Kinase C-Reactive Protein Total Protein Albumin Prealbumin CA 19-9 Antigen Folate PTH Intact Urine WBC (Auto) Urine Creatinine Urine Chloride Urine Total Protein Fluid Glucose Fluid Total Protein Vancomycin Trough Miscellaneous Test Crossmatch 05/30/18 05/30/18 05/31/18 12:13 17:10 04:50 WBC 18.7 H RBC 2.86 L Hgb 8.2 L Hct 24.8 L MCV MCHC RDW Plt Count Lymph % (Auto) [place] % (Auto) Lymph # [place] # Seg Neutrophils % Seg Neuts % (Manual) 91.0 H Lymphocytes % (Manual) 2.0 L Monocytes % (Manual) Seg Neutrophils # Seg Neutrophils # Man 17.0 H Lymphocytes # (Manual) 0.4 L Monocytes # (Manual) PT INR APTT Heparin Anti-Xa Level POC ABG pH POC ABG pCO2 POC ABG pO2 Sodium Potassium Chloride Carbon Dioxide BUN Creatinine Glucose POC Glucose 132 H 122 H Lactic Acid Calcium Phosphorus Magnesium Iron TIBC AST ALT Alkaline Phosphatase Lactate Dehydrogenase Total Creatine Kinase C-Reactive Protein Total Protein Albumin Prealbumin CA 19-9 Antigen Folate PTH Intact Urine WBC (Auto) Urine Creatinine Urine Chloride Urine Total Protein Fluid Glucose Fluid Total Protein Vancomycin Trough Miscellaneous Test Crossmatch 05/31/18 05/31/18 05/31/18 04:50 05:45 11:37 WBC RBC Hgb Hct MCV MCHC RDW Plt Count Lymph % (Auto) [place] % (Auto) Lymph # [place] # Seg Neutrophils % Seg Neuts % (Manual) Lymphocytes % (Manual) Monocytes % (Manual) Seg Neutrophils # Seg Neutrophils # Man Lymphocytes # (Manual) Monocytes # (Manual) PT INR APTT Heparin Anti-Xa Level POC ABG pH POC ABG pCO2 POC ABG pO2 Sodium 132 L Potassium Chloride 92.4 L Carbon Dioxide BUN 77 H Creatinine 5.9 H Glucose POC Glucose 111 H 136 H Lactic Acid Calcium 7.3 L Phosphorus 6.40 H D Magnesium Iron TIBC AST ALT Alkaline Phosphatase Lactate Dehydrogenase Total Creatine Kinase C-Reactive Protein Total Protein Albumin Prealbumin CA 19-9 Antigen Folate PTH Intact Urine WBC (Auto) Urine Creatinine Urine Chloride Urine Total Protein Fluid Glucose Fluid Total Protein Vancomycin Trough Miscellaneous Test Crossmatch 05/31/18 06/01/18 06/01/18 17:52 00:09 04:00 WBC RBC Hgb Hct MCV MCHC RDW Plt Count Lymph % (Auto) [place] % (Auto) Lymph # [place] # Seg Neutrophils % Seg Neuts % (Manual) Lymphocytes % (Manual) Monocytes % (Manual) Seg Neutrophils # Seg Neutrophils # Man Lymphocytes # (Manual) Monocytes # (Manual) PT INR APTT Heparin Anti-Xa Level POC ABG pH POC ABG pCO2 POC ABG pO2 Sodium Potassium Chloride 97.5 L Carbon Dioxide BUN 49 H Creatinine 4.2 H Glucose 104 H POC Glucose 115 H 114 H Lactic Acid Calcium 7.3 L Phosphorus 4.70 H D Magnesium Iron TIBC AST ALT Alkaline Phosphatase Lactate Dehydrogenase Total Creatine Kinase C-Reactive Protein Total Protein Albumin Prealbumin CA 19-9 Antigen Folate PTH Intact Urine WBC (Auto) Urine Creatinine Urine Chloride Urine Total Protein Fluid Glucose Fluid Total Protein Vancomycin Trough Miscellaneous Test Crossmatch 06/01/18 06/01/18 06/02/18 11:10 17:56 00:15 WBC RBC Hgb Hct MCV MCHC RDW Plt Count Lymph % (Auto) [place] % (Auto) Lymph # [place] # Seg Neutrophils % Seg Neuts % (Manual) Lymphocytes % (Manual) Monocytes % (Manual) Seg Neutrophils # Seg Neutrophils # Man Lymphocytes # (Manual) Monocytes # (Manual) PT INR APTT Heparin Anti-Xa Level POC ABG pH POC ABG pCO2 POC ABG pO2 Sodium Potassium Chloride Carbon Dioxide BUN Creatinine Glucose POC Glucose 123 H 126 H 135 H Lactic Acid Calcium Phosphorus Magnesium Iron TIBC AST ALT Alkaline Phosphatase Lactate Dehydrogenase Total Creatine Kinase C-Reactive Protein Total Protein Albumin Prealbumin CA 19-9 Antigen Folate PTH Intact Urine WBC (Auto) Urine Creatinine Urine Chloride Urine Total Protein Fluid Glucose Fluid Total Protein Vancomycin Trough Miscellaneous Test Crossmatch 06/02/18 06/02/18 06/02/18 05:23 12:42 13:05 WBC RBC Hgb Hct MCV MCHC RDW Plt Count Lymph % (Auto) [place] % (Auto) Lymph # [place] # Seg Neutrophils % Seg Neuts % (Manual) Lymphocytes % (Manual) Monocytes % (Manual) Seg Neutrophils # Seg Neutrophils # Man Lymphocytes # (Manual) Monocytes # (Manual) PT 17.1 H INR 1.34 H APTT Heparin Anti-Xa Level POC ABG pH POC ABG pCO2 POC ABG pO2 Sodium Potassium Chloride Carbon Dioxide BUN Creatinine Glucose POC Glucose 135 H 142 H Lactic Acid Calcium Phosphorus Magnesium Iron TIBC AST ALT Alkaline Phosphatase Lactate Dehydrogenase Total Creatine Kinase C-Reactive Protein Total Protein Albumin Prealbumin CA 19-9 Antigen Folate PTH Intact Urine WBC (Auto) Urine Creatinine Urine Chloride Urine Total Protein Fluid Glucose Fluid Total Protein Vancomycin Trough Miscellaneous Test Crossmatch 06/02/18 06/02/18 06/03/18 Unknown Unknown 00:54 WBC 20.8 H RBC 2.67 L Hgb 7.7 L Hct 23.0 L MCV MCHC RDW Plt Count 500 H Lymph % (Auto) [place] % (Auto) Lymph # [place] # Seg Neutrophils % Seg Neuts % (Manual) Lymphocytes % (Manual) Monocytes % (Manual) Seg Neutrophils # Seg Neutrophils # Man Lymphocytes # (Manual) Monocytes # (Manual) PT INR APTT Heparin Anti-Xa Level POC ABG pH POC ABG pCO2 POC ABG pO2 Sodium 136 L Potassium 3.5 L Chloride 96.9 L Carbon Dioxide BUN 62 H Creatinine 4.9 H Glucose 133 H POC Glucose 125 H Lactic Acid Calcium 7.2 L Phosphorus 5.00 H Magnesium Iron TIBC AST 46 H ALT 66 H Alkaline Phosphatase Lactate Dehydrogenase Total Creatine Kinase C-Reactive Protein Total Protein 5.7 L Albumin 1.5 L Prealbumin CA 19-9 Antigen Folate PTH Intact Urine WBC (Auto) Urine Creatinine Urine Chloride Urine Total Protein Fluid Glucose Fluid Total Protein Vancomycin Trough Miscellaneous Test Crossmatch 06/03/18 06/03/18 06/03/18 03:31 09:18 09:18 WBC RBC Hgb Hct MCV MCHC RDW Plt Count Lymph % (Auto) [place] % (Auto) Lymph # [place] # Seg Neutrophils % Seg Neuts % (Manual) Lymphocytes % (Manual) Monocytes % (Manual) Seg Neutrophils # Seg Neutrophils # Man Lymphocytes # (Manual) Monocytes # (Manual) PT 17.1 H INR 1.34 H APTT Heparin Anti-Xa Level POC ABG pH POC ABG pCO2 POC ABG pO2 Sodium 136 L Potassium Chloride Carbon Dioxide BUN 41 H Creatinine 3.4 H Glucose 129 H POC Glucose Lactic Acid Calcium 7.4 L Phosphorus Magnesium Iron TIBC AST ALT Alkaline Phosphatase Lactate Dehydrogenase Total Creatine Kinase C-Reactive Protein 11.10 H Total Protein Albumin Prealbumin CA 19-9 Antigen Folate PTH Intact Urine WBC (Auto) Urine Creatinine Urine Chloride Urine Total Protein Fluid Glucose Fluid Total Protein Vancomycin Trough Miscellaneous Test Crossmatch 06/03/18 06/03/18 06/03/18 16:07 21:18 Unknown WBC RBC Hgb Hct MCV MCHC RDW Plt Count Lymph % (Auto) [place] % (Auto) Lymph # [place] # Seg Neutrophils % Seg Neuts % (Manual) Lymphocytes % (Manual) Monocytes % (Manual) Seg Neutrophils # Seg Neutrophils # Man Lymphocytes # (Manual) Monocytes # (Manual) PT INR APTT Heparin Anti-Xa Level POC ABG pH POC ABG pCO2 POC ABG pO2 Sodium Potassium Chloride Carbon Dioxide BUN Creatinine Glucose POC Glucose 144 H 128 H Lactic Acid Calcium Phosphorus Magnesium Iron TIBC AST ALT Alkaline Phosphatase Lactate Dehydrogenase Total Creatine Kinase C-Reactive Protein Total Protein Albumin Prealbumin CA 19-9 Antigen Folate PTH Intact Urine WBC (Auto) Urine Creatinine Urine Chloride Urine Total Protein Fluid Glucose 10 L Fluid Total Protein 3.7 L Vancomycin Trough Miscellaneous Test Crossmatch 06/04/18 06/04/18 06/04/18 04:31 06:14 11:38 WBC RBC Hgb Hct MCV MCHC RDW Plt Count Lymph % (Auto) [place] % (Auto) Lymph # [place] # Seg Neutrophils % Seg Neuts % (Manual) Lymphocytes % (Manual) Monocytes % (Manual) Seg Neutrophils # Seg Neutrophils # Man Lymphocytes # (Manual) Monocytes # (Manual) PT INR APTT Heparin Anti-Xa Level POC ABG pH POC ABG pCO2 POC ABG pO2 Sodium Potassium Chloride Carbon Dioxide BUN 55 H Creatinine 3.7 H Glucose 151 H POC Glucose 145 H 129 H Lactic Acid Calcium 7.8 L Phosphorus 4.60 H Magnesium Iron TIBC AST ALT Alkaline Phosphatase Lactate Dehydrogenase Total Creatine Kinase C-Reactive Protein Total Protein Albumin Prealbumin CA 19-9 Antigen Folate PTH Intact Urine WBC (Auto) Urine Creatinine Urine Chloride Urine Total Protein Fluid Glucose Fluid Total Protein Vancomycin Trough Miscellaneous Test Crossmatch 06/04/18 06/04/18 06/04/18 17:09 20:00 21:29 WBC RBC Hgb 8.8 L Hct 27.3 L MCV MCHC RDW Plt Count Lymph % (Auto) [place] % (Auto) Lymph # [place] # Seg Neutrophils % Seg Neuts % (Manual) Lymphocytes % (Manual) Monocytes % (Manual) Seg Neutrophils # Seg Neutrophils # Man Lymphocytes # (Manual) Monocytes # (Manual) PT INR APTT Heparin Anti-Xa Level POC ABG pH POC ABG pCO2 POC ABG pO2 Sodium Potassium Chloride Carbon Dioxide BUN Creatinine Glucose POC Glucose 142 H 130 H Lactic Acid Calcium Phosphorus Magnesium Iron TIBC AST ALT Alkaline Phosphatase Lactate Dehydrogenase Total Creatine Kinase C-Reactive Protein Total Protein Albumin Prealbumin CA 19-9 Antigen Folate PTH Intact Urine WBC (Auto) Urine Creatinine Urine Chloride Urine Total Protein Fluid Glucose Fluid Total Protein Vancomycin Trough Miscellaneous Test Crossmatch 06/05/18 06/05/18 06/05/18 06:30 07:00 07:00 WBC 19.3 H RBC 2.94 L Hgb 8.3 L Hct 25.6 L MCV MCHC RDW 15.7 H Plt Count 568 H Lymph % (Auto) 4.7 L [place] % (Auto) Lymph # 0.9 L [place] # 1.1 H Seg Neutrophils % 88.9 H Seg Neuts % (Manual) Lymphocytes % (Manual) Monocytes % (Manual) Seg Neutrophils # 17.2 H Seg Neutrophils # Man Lymphocytes # (Manual) Monocytes # (Manual) PT INR APTT Heparin Anti-Xa Level POC ABG pH POC ABG pCO2 POC ABG pO2 Sodium Potassium 3.4 L D Chloride Carbon Dioxide BUN 67 H Creatinine 3.6 H Glucose 145 H POC Glucose 153 H Lactic Acid Calcium 7.9 L Phosphorus 4.60 H Magnesium Iron TIBC AST ALT Alkaline Phosphatase Lactate Dehydrogenase Total Creatine Kinase C-Reactive Protein Total Protein Albumin Prealbumin CA 19-9 Antigen Folate PTH Intact Urine WBC (Auto) Urine Creatinine Urine Chloride Urine Total Protein Fluid Glucose Fluid Total Protein Vancomycin Trough Miscellaneous Test Crossmatch 06/05/18 06/05/18 06/06/18 12:10 16:01 06:39 WBC RBC Hgb Hct MCV MCHC RDW Plt Count Lymph % (Auto) [place] % (Auto) Lymph # [place] # Seg Neutrophils % Seg Neuts % (Manual) Lymphocytes % (Manual) Monocytes % (Manual) Seg Neutrophils # Seg Neutrophils # Man Lymphocytes # (Manual) Monocytes # (Manual) PT INR APTT Heparin Anti-Xa Level POC ABG pH POC ABG pCO2 POC ABG pO2 Sodium Potassium Chloride Carbon Dioxide BUN Creatinine Glucose POC Glucose 150 H 129 H 131 H Lactic Acid Calcium Phosphorus Magnesium Iron TIBC AST ALT Alkaline Phosphatase Lactate Dehydrogenase Total Creatine Kinase C-Reactive Protein Total Protein Albumin Prealbumin CA 19-9 Antigen Folate PTH Intact Urine WBC (Auto) Urine Creatinine Urine Chloride Urine Total Protein Fluid Glucose Fluid Total Protein Vancomycin Trough Miscellaneous Test Crossmatch 06/06/18 06/06/18 06/06/18 07:14 07:14 07:14 WBC 16.5 H RBC 2.84 L Hgb 8.1 L Hct 25.2 L MCV MCHC RDW 16.4 H Plt Count 526 H Lymph % (Auto) 6.5 L [place] % (Auto) Lymph # 1.1 L [place] # 1.2 H Seg Neutrophils % 85.3 H Seg Neuts % (Manual) Lymphocytes % (Manual) Monocytes % (Manual) Seg Neutrophils # 14.1 H Seg Neutrophils # Man Lymphocytes # (Manual) Monocytes # (Manual) PT INR APTT Heparin Anti-Xa Level POC ABG pH POC ABG pCO2 POC ABG pO2 Sodium Potassium Chloride 109.1 H Carbon Dioxide 21 L BUN 76 H Creatinine 3.5 H Glucose 111 H POC Glucose Lactic Acid Calcium 8.1 L Phosphorus Magnesium Iron TIBC AST ALT Alkaline Phosphatase Lactate Dehydrogenase Total Creatine Kinase C-Reactive Protein 4.70 H Total Protein Albumin Prealbumin CA 19-9 Antigen Folate PTH Intact Urine WBC (Auto) Urine Creatinine Urine Chloride Urine Total Protein Fluid Glucose Fluid Total Protein Vancomycin Trough Miscellaneous Test Crossmatch 06/06/18 06/06/18 06/06/18 11:15 18:00 23:58 WBC RBC Hgb Hct MCV MCHC RDW Plt Count Lymph % (Auto) [place] % (Auto) Lymph # [place] # Seg Neutrophils % Seg Neuts % (Manual) Lymphocytes % (Manual) Monocytes % (Manual) Seg Neutrophils # Seg Neutrophils # Man Lymphocytes # (Manual) Monocytes # (Manual) PT INR APTT Heparin Anti-Xa Level POC ABG pH POC ABG pCO2 POC ABG pO2 Sodium Potassium Chloride Carbon Dioxide BUN Creatinine Glucose POC Glucose 127 H 130 H 114 H Lactic Acid Calcium Phosphorus Magnesium Iron TIBC AST ALT Alkaline Phosphatase Lactate Dehydrogenase Total Creatine Kinase C-Reactive Protein Total Protein Albumin Prealbumin CA 19-9 Antigen Folate PTH Intact Urine WBC (Auto) Urine Creatinine Urine Chloride Urine Total Protein Fluid Glucose Fluid Total Protein Vancomycin Trough Miscellaneous Test Crossmatch 06/07/18 06/07/18 06/07/18 05:45 05:45 05:54 WBC 15.5 H RBC 2.60 L Hgb 7.4 L Hct 23.1 L MCV MCHC RDW 16.5 H Plt Count 506 H Lymph % (Auto) 5.3 L [place] % (Auto) Lymph # 0.8 L [place] # 1.0 H Seg Neutrophils % 86.6 H Seg Neuts % (Manual) Lymphocytes % (Manual) Monocytes % (Manual) Seg Neutrophils # 13.4 H Seg Neutrophils # Man Lymphocytes # (Manual) Monocytes # (Manual) PT INR APTT Heparin Anti-Xa Level POC ABG pH POC ABG pCO2 POC ABG pO2 Sodium Potassium Chloride 108.4 H Carbon Dioxide BUN 84 H Creatinine 3.5 H Glucose 119 H POC Glucose 114 H Lactic Acid Calcium 8.1 L Phosphorus 5.10 H Magnesium Iron TIBC AST ALT Alkaline Phosphatase Lactate Dehydrogenase Total Creatine Kinase C-Reactive Protein Total Protein Albumin Prealbumin CA 19-9 Antigen Folate PTH Intact Urine WBC (Auto) Urine Creatinine Urine Chloride Urine Total Protein Fluid Glucose Fluid Total Protein Vancomycin Trough Miscellaneous Test Crossmatch 06/07/18 06/08/18 06/08/18 12:15 05:05 05:24 WBC RBC Hgb Hct MCV MCHC RDW Plt Count Lymph % (Auto) [place] % (Auto) Lymph # [place] # Seg Neutrophils % Seg Neuts % (Manual) Lymphocytes % (Manual) Monocytes % (Manual) Seg Neutrophils # Seg Neutrophils # Man Lymphocytes # (Manual) Monocytes # (Manual) PT INR APTT Heparin Anti-Xa Level POC ABG pH POC ABG pCO2 POC ABG pO2 Sodium 148 H Potassium Chloride 112.4 H Carbon Dioxide BUN 89 H Creatinine 3.4 H Glucose 120 H POC Glucose 148 H 115 H Lactic Acid Calcium 7.9 L Phosphorus Magnesium Iron TIBC AST ALT Alkaline Phosphatase Lactate Dehydrogenase Total Creatine Kinase C-Reactive Protein Total Protein Albumin Prealbumin CA 19-9 Antigen Folate PTH Intact Urine WBC (Auto) Urine Creatinine Urine Chloride Urine Total Protein Fluid Glucose Fluid Total Protein Vancomycin Trough Miscellaneous Test Crossmatch 06/08/18 06/08/18 06/08/18 21:36 21:43 21:43 WBC RBC 2.98 L Hgb 8.8 L Hct 26.6 L MCV MCHC RDW 16.7 H Plt Count 463 H Lymph % (Auto) 7.9 L [place] % (Auto) Lymph # 0.8 L [place] # Seg Neutrophils % 84.8 H Seg Neuts % (Manual) Lymphocytes % (Manual) Monocytes % (Manual) Seg Neutrophils # 8.6 H Seg Neutrophils # Man Lymphocytes # (Manual) Monocytes # (Manual) PT INR APTT Heparin Anti-Xa Level POC ABG pH POC ABG pCO2 POC ABG pO2 Sodium Potassium Chloride Carbon Dioxide BUN Creatinine Glucose POC Glucose Lactic Acid Calcium Phosphorus Magnesium Iron TIBC AST ALT Alkaline Phosphatase Lactate Dehydrogenase 297 H Total Creatine Kinase C-Reactive Protein Total Protein Albumin Prealbumin CA 19-9 Antigen 57 H Folate PTH Intact Urine WBC (Auto) Urine Creatinine Urine Chloride Urine Total Protein Fluid Glucose Fluid Total Protein Vancomycin Trough Miscellaneous Test Crossmatch 06/09/18 06/09/18 06/09/18 00:05 05:34 05:50 WBC RBC Hgb Hct MCV MCHC RDW Plt Count Lymph % (Auto) [place] % (Auto) Lymph # [place] # Seg Neutrophils % Seg Neuts % (Manual) Lymphocytes % (Manual) Monocytes % (Manual) Seg Neutrophils # Seg Neutrophils # Man Lymphocytes # (Manual) Monocytes # (Manual) PT INR APTT Heparin Anti-Xa Level POC ABG pH POC ABG pCO2 POC ABG pO2 Sodium 153 H Potassium Chloride 117.3 H Carbon Dioxide BUN 84 H Creatinine 3.2 H Glucose 117 H POC Glucose 140 H 146 H Lactic Acid Calcium 7.9 L Phosphorus Magnesium Iron TIBC AST ALT Alkaline Phosphatase Lactate Dehydrogenase Total Creatine Kinase C-Reactive Protein Total Protein Albumin Prealbumin CA 19-9 Antigen Folate PTH Intact Urine WBC (Auto) Urine Creatinine Urine Chloride Urine Total Protein Fluid Glucose Fluid Total Protein Vancomycin Trough Miscellaneous Test Crossmatch 06/09/18 06/09/18 06/09/18 05:50 07:37 10:34 WBC RBC 2.32 L Hgb 6.8 L Hct 20.7 L MCV MCHC RDW 16.7 H Plt Count Lymph % (Auto) [place] % (Auto) Lymph # [place] # Seg Neutrophils % Seg Neuts % (Manual) Lymphocytes % (Manual) Monocytes % (Manual) Seg Neutrophils # Seg Neutrophils # Man Lymphocytes # (Manual) Monocytes # (Manual) PT INR APTT Heparin Anti-Xa Level POC ABG pH POC ABG pCO2 POC ABG pO2 Sodium 149 H Potassium Chloride 114.6 H Carbon Dioxide BUN 84 H Creatinine 3.1 H Glucose 137 H POC Glucose Lactic Acid Calcium 7.7 L Phosphorus Magnesium Iron TIBC AST ALT Alkaline Phosphatase Lactate Dehydrogenase Total Creatine Kinase C-Reactive Protein Total Protein Albumin Prealbumin CA 19-9 Antigen Folate PTH Intact Urine WBC (Auto) Urine Creatinine Urine Chloride Urine Total Protein Fluid Glucose Fluid Total Protein Vancomycin Trough Miscellaneous Test Flexitest 1 H Crossmatch 06/09/18 06/09/18 06/09/18 10:41 11:56 13:24 WBC RBC 2.43 L Hgb 7.2 L Hct 21.6 L MCV MCHC RDW 16.8 H Plt Count Lymph % (Auto) [place] % (Auto) Lymph # [place] # Seg Neutrophils % Seg Neuts % (Manual) Lymphocytes % (Manual) Monocytes % (Manual) Seg Neutrophils # Seg Neutrophils # Man Lymphocytes # (Manual) Monocytes # (Manual) PT INR APTT Heparin Anti-Xa Level POC ABG pH POC ABG pCO2 POC ABG pO2 Sodium Potassium Chloride Carbon Dioxide BUN Creatinine Glucose POC Glucose 141 H Lactic Acid Calcium Phosphorus Magnesium Iron TIBC AST ALT Alkaline Phosphatase Lactate Dehydrogenase Total Creatine Kinase C-Reactive Protein Total Protein Albumin Prealbumin CA 19-9 Antigen Folate PTH Intact Urine WBC (Auto) Urine Creatinine Urine Chloride Urine Total Protein Fluid Glucose Fluid Total Protein Vancomycin Trough Miscellaneous Test Crossmatch See Detail 06/09/18 06/09/18 06/10/18 18:18 23:13 05:26 WBC RBC Hgb Hct MCV MCHC RDW Plt Count Lymph % (Auto) [place] % (Auto) Lymph # [place] # Seg Neutrophils % Seg Neuts % (Manual) Lymphocytes % (Manual) Monocytes % (Manual) Seg Neutrophils # Seg Neutrophils # Man Lymphocytes # (Manual) Monocytes # (Manual) PT INR APTT Heparin Anti-Xa Level POC ABG pH POC ABG pCO2 POC ABG pO2 Sodium 148 H Potassium Chloride 114.7 H Carbon Dioxide 21 L BUN 79 H Creatinine 3.2 H Glucose 121 H POC Glucose 156 H 163 H Lactic Acid Calcium 7.8 L Phosphorus Magnesium 1.60 L Iron TIBC AST ALT Alkaline Phosphatase Lactate Dehydrogenase Total Creatine Kinase C-Reactive Protein Total Protein Albumin Prealbumin CA 19-9 Antigen Folate PTH Intact Urine WBC (Auto) Urine Creatinine Urine Chloride Urine Total Protein Fluid Glucose Fluid Total Protein Vancomycin Trough Miscellaneous Test Crossmatch 06/10/18 06/10/18 06/10/18 05:26 05:31 17:15 WBC 11.1 H RBC 3.07 L Hgb 9.1 L Hct 27.6 L D MCV MCHC RDW 17.4 H Plt Count Lymph % (Auto) [place] % (Auto) Lymph # [place] # Seg Neutrophils % Seg Neuts % (Manual) Lymphocytes % (Manual) Monocytes % (Manual) Seg Neutrophils # Seg Neutrophils # Man Lymphocytes # (Manual) Monocytes # (Manual) PT INR APTT Heparin Anti-Xa Level POC ABG pH POC ABG pCO2 POC ABG pO2 Sodium Potassium Chloride Carbon Dioxide BUN Creatinine Glucose POC Glucose 128 H Lactic Acid Calcium Phosphorus Magnesium Iron TIBC AST ALT Alkaline Phosphatase Lactate Dehydrogenase Total Creatine Kinase C-Reactive Protein 3.60 H Total Protein Albumin Prealbumin CA 19-9 Antigen Folate PTH Intact Urine WBC (Auto) Urine Creatinine Urine Chloride Urine Total Protein Fluid Glucose Fluid Total Protein Vancomycin Trough Miscellaneous Test Crossmatch 06/11/18 06/11/18 06/11/18 01:13 05:41 05:41 WBC 14.6 H RBC 3.40 L Hgb 9.8 L Hct 30.7 L MCV MCHC RDW 18.1 H Plt Count Lymph % (Auto) [place] % (Auto) Lymph # [place] # Seg Neutrophils % Seg Neuts % (Manual) Lymphocytes % (Manual) Monocytes % (Manual) Seg Neutrophils # Seg Neutrophils # Man Lymphocytes # (Manual) Monocytes # (Manual) PT INR APTT Heparin Anti-Xa Level POC ABG pH POC ABG pCO2 POC ABG pO2 Sodium Potassium Chloride 110.8 H Carbon Dioxide 18 L BUN 77 H Creatinine 3.0 H Glucose 116 H POC Glucose 126 H Lactic Acid Calcium 7.9 L Phosphorus Magnesium Iron TIBC AST ALT Alkaline Phosphatase Lactate Dehydrogenase Total Creatine Kinase C-Reactive Protein Total Protein Albumin Prealbumin CA 19-9 Antigen Folate PTH Intact Urine WBC (Auto) Urine Creatinine Urine Chloride Urine Total Protein Fluid Glucose Fluid Total Protein Vancomycin Trough Miscellaneous Test Crossmatch 06/11/18 06/11/18 06/11/18 06:20 07:41 07:41 WBC RBC Hgb Hct MCV MCHC RDW Plt Count Lymph % (Auto) [place] % (Auto) Lymph # [place] # Seg Neutrophils % Seg Neuts % (Manual) Lymphocytes % (Manual) Monocytes % (Manual) Seg Neutrophils # Seg Neutrophils # Man Lymphocytes # (Manual) Monocytes # (Manual) PT INR APTT Heparin Anti-Xa Level POC ABG pH POC ABG pCO2 POC ABG pO2 Sodium Potassium Chloride Carbon Dioxide BUN Creatinine Glucose POC Glucose 136 H Lactic Acid Calcium Phosphorus Magnesium Iron TIBC AST ALT Alkaline Phosphatase Lactate Dehydrogenase Total Creatine Kinase C-Reactive Protein Total Protein Albumin Prealbumin CA 19-9 Antigen Folate PTH Intact Urine WBC (Auto) 10.0 H Urine Creatinine 41.2 H Urine Chloride 49.2 L Urine Total Protein 142 H Fluid Glucose Fluid Total Protein Vancomycin Trough Miscellaneous Test Crossmatch 06/11/18 06/12/18 06/12/18 18:35 00:34 04:12 WBC RBC 3.18 L Hgb 9.5 L Hct 28.7 L MCV MCHC RDW 18.5 H Plt Count Lymph % (Auto) 8.1 L [place] % (Auto) Lymph # 0.9 L [place] # Seg Neutrophils % 84.6 H Seg Neuts % (Manual) Lymphocytes % (Manual) Monocytes % (Manual) Seg Neutrophils # 9.1 H Seg Neutrophils # Man Lymphocytes # (Manual) Monocytes # (Manual) PT INR APTT Heparin Anti-Xa Level POC ABG pH POC ABG pCO2 POC ABG pO2 Sodium Potassium Chloride Carbon Dioxide BUN Creatinine Glucose POC Glucose 125 H 129 H Lactic Acid Calcium Phosphorus Magnesium Iron TIBC AST ALT Alkaline Phosphatase Lactate Dehydrogenase Total Creatine Kinase C-Reactive Protein Total Protein Albumin Prealbumin CA 19-9 Antigen Folate PTH Intact Urine WBC (Auto) Urine Creatinine Urine Chloride Urine Total Protein Fluid Glucose Fluid Total Protein Vancomycin Trough Miscellaneous Test Crossmatch 06/12/18 06/12/18 06/12/18 04:12 06:30 11:43 WBC RBC Hgb Hct MCV MCHC RDW Plt Count Lymph % (Auto) [place] % (Auto) Lymph # [place] # Seg Neutrophils % Seg Neuts % (Manual) Lymphocytes % (Manual) Monocytes % (Manual) Seg Neutrophils # Seg Neutrophils # Man Lymphocytes # (Manual) Monocytes # (Manual) PT INR APTT Heparin Anti-Xa Level POC ABG pH POC ABG pCO2 POC ABG pO2 Sodium Potassium Chloride 108.5 H Carbon Dioxide 21 L BUN 72 H Creatinine 3.0 H Glucose 122 H POC Glucose 129 H 126 H Lactic Acid Calcium 7.8 L Phosphorus Magnesium Iron TIBC AST 45 H ALT Alkaline Phosphatase 200 H Lactate Dehydrogenase Total Creatine Kinase 34 L C-Reactive Protein Total Protein Albumin 1.7 L Prealbumin CA 19-9 Antigen Folate PTH Intact Urine WBC (Auto) Urine Creatinine Urine Chloride Urine Total Protein Fluid Glucose Fluid Total Protein Vancomycin Trough Miscellaneous Test Crossmatch 06/12/18 06/12/18 06/13/18 16:00 23:56 03:44 WBC RBC Hgb Hct MCV MCHC RDW Plt Count Lymph % (Auto) [place] % (Auto) Lymph # [place] # Seg Neutrophils % Seg Neuts % (Manual) Lymphocytes % (Manual) Monocytes % (Manual) Seg Neutrophils # Seg Neutrophils # Man Lymphocytes # (Manual) Monocytes # (Manual) PT INR APTT Heparin Anti-Xa Level POC ABG pH POC ABG pCO2 POC ABG pO2 Sodium Potassium Chloride Carbon Dioxide BUN Creatinine Glucose POC Glucose 123 H 128 H 121 H Lactic Acid Calcium Phosphorus Magnesium Iron TIBC AST ALT Alkaline Phosphatase Lactate Dehydrogenase Total Creatine Kinase C-Reactive Protein Total Protein Albumin Prealbumin CA 19-9 Antigen Folate PTH Intact Urine WBC (Auto) Urine Creatinine Urine Chloride Urine Total Protein Fluid Glucose Fluid Total Protein Vancomycin Trough Miscellaneous Test Crossmatch 06/13/18 06/13/18 06/14/18 05:59 11:29 01:08 WBC RBC Hgb Hct MCV MCHC RDW Plt Count Lymph % (Auto) [place] % (Auto) Lymph # [place] # Seg Neutrophils % Seg Neuts % (Manual) Lymphocytes % (Manual) Monocytes % (Manual) Seg Neutrophils # Seg Neutrophils # Man Lymphocytes # (Manual) Monocytes # (Manual) PT INR APTT Heparin Anti-Xa Level POC ABG pH POC ABG pCO2 POC ABG pO2 Sodium 134 L Potassium Chloride Carbon Dioxide 20 L BUN 69 H Creatinine 2.9 H Glucose 113 H POC Glucose 124 H 128 H Lactic Acid Calcium 7.8 L Phosphorus Magnesium Iron TIBC AST ALT Alkaline Phosphatase Lactate Dehydrogenase Total Creatine Kinase C-Reactive Protein Total Protein Albumin Prealbumin CA 19-9 Antigen Folate PTH Intact Urine WBC (Auto) Urine Creatinine Urine Chloride Urine Total Protein Fluid Glucose Fluid Total Protein Vancomycin Trough Miscellaneous Test Crossmatch 06/14/18 06/14/18 06/14/18 06:42 06:42 09:50 WBC 11.3 H RBC 3.02 L Hgb 8.8 L Hct 27.3 L MCV MCHC RDW 18.6 H Plt Count Lymph % (Auto) [place] % (Auto) Lymph # [place] # Seg Neutrophils % Seg Neuts % (Manual) Lymphocytes % (Manual) Monocytes % (Manual) Seg Neutrophils # Seg Neutrophils # Man Lymphocytes # (Manual) Monocytes # (Manual) PT 16.3 H INR 1.24 H APTT Heparin Anti-Xa Level POC ABG pH POC ABG pCO2 POC ABG pO2 Sodium 132 L Potassium Chloride Carbon Dioxide 19 L BUN 71 H Creatinine 3.1 H Glucose POC Glucose Lactic Acid Calcium 7.8 L Phosphorus Magnesium Iron TIBC AST ALT Alkaline Phosphatase Lactate Dehydrogenase Total Creatine Kinase C-Reactive Protein Total Protein Albumin Prealbumin CA 19-9 Antigen Folate PTH Intact Urine WBC (Auto) Urine Creatinine Urine Chloride Urine Total Protein Fluid Glucose Fluid Total Protein Vancomycin Trough Miscellaneous Test Crossmatch 06/14/18 06/14/18 06/15/18 12:31 17:04 01:18 WBC RBC Hgb Hct MCV MCHC RDW Plt Count Lymph % (Auto) [place] % (Auto) Lymph # [place] # Seg Neutrophils % Seg Neuts % (Manual) Lymphocytes % (Manual) Monocytes % (Manual) Seg Neutrophils # Seg Neutrophils # Man Lymphocytes # (Manual) Monocytes # (Manual) PT INR APTT Heparin Anti-Xa Level POC ABG pH POC ABG pCO2 POC ABG pO2 Sodium Potassium Chloride Carbon Dioxide BUN Creatinine Glucose POC Glucose 125 H 109 H 124 H Lactic Acid Calcium Phosphorus Magnesium Iron TIBC AST ALT Alkaline Phosphatase Lactate Dehydrogenase Total Creatine Kinase C-Reactive Protein Total Protein Albumin Prealbumin CA 19-9 Antigen Folate PTH Intact Urine WBC (Auto) Urine Creatinine Urine Chloride Urine Total Protein Fluid Glucose Fluid Total Protein Vancomycin Trough Miscellaneous Test Crossmatch 06/15/18 06/15/18 06/15/18 05:27 06:34 11:42 WBC RBC Hgb Hct MCV MCHC RDW Plt Count Lymph % (Auto) [place] % (Auto) Lymph # [place] # Seg Neutrophils % Seg Neuts % (Manual) Lymphocytes % (Manual) Monocytes % (Manual) Seg Neutrophils # Seg Neutrophils # Man Lymphocytes # (Manual) Monocytes # (Manual) PT INR APTT Heparin Anti-Xa Level POC ABG pH POC ABG pCO2 POC ABG pO2 Sodium 134 L Potassium Chloride Carbon Dioxide 17 L BUN 77 H Creatinine 3.2 H Glucose 110 H POC Glucose 116 H 131 H Lactic Acid Calcium 8.1 L Phosphorus 6.20 H D Magnesium Iron TIBC AST ALT Alkaline Phosphatase Lactate Dehydrogenase Total Creatine Kinase C-Reactive Protein Total Protein Albumin Prealbumin CA 19-9 Antigen Folate PTH Intact Urine WBC (Auto) Urine Creatinine Urine Chloride Urine Total Protein Fluid Glucose Fluid Total Protein Vancomycin Trough Miscellaneous Test Crossmatch 06/16/18 06/16/18 06/16/18 00:57 05:10 06:07 WBC RBC Hgb Hct MCV MCHC RDW Plt Count Lymph % (Auto) [place] % (Auto) Lymph # [place] # Seg Neutrophils % Seg Neuts % (Manual) Lymphocytes % (Manual) Monocytes % (Manual) Seg Neutrophils # Seg Neutrophils # Man Lymphocytes # (Manual) Monocytes # (Manual) PT INR APTT Heparin Anti-Xa Level POC ABG pH POC ABG pCO2 POC ABG pO2 Sodium 132 L Potassium Chloride Carbon Dioxide 19 L BUN 83 H Creatinine 3.2 H Glucose 113 H POC Glucose 137 H 109 H Lactic Acid Calcium 7.8 L Phosphorus 6.10 H Magnesium Iron TIBC AST ALT Alkaline Phosphatase Lactate Dehydrogenase Total Creatine Kinase C-Reactive Protein Total Protein Albumin Prealbumin CA 19-9 Antigen Folate PTH Intact Urine WBC (Auto) Urine Creatinine Urine Chloride Urine Total Protein Fluid Glucose Fluid Total Protein Vancomycin Trough Miscellaneous Test Crossmatch 06/16/18 06/16/18 06/17/18 11:51 15:46 00:02 WBC RBC Hgb Hct MCV MCHC RDW Plt Count Lymph % (Auto) [place] % (Auto) Lymph # [place] # Seg Neutrophils % Seg Neuts % (Manual) Lymphocytes % (Manual) Monocytes % (Manual) Seg Neutrophils # Seg Neutrophils # Man Lymphocytes # (Manual) Monocytes # (Manual) PT INR APTT Heparin Anti-Xa Level POC ABG pH POC ABG pCO2 POC ABG pO2 Sodium Potassium Chloride Carbon Dioxide BUN Creatinine Glucose POC Glucose 126 H 127 H 107 H Lactic Acid Calcium Phosphorus Magnesium Iron TIBC AST ALT Alkaline Phosphatase Lactate Dehydrogenase Total Creatine Kinase C-Reactive Protein Total Protein Albumin Prealbumin CA 19-9 Antigen Folate PTH Intact Urine WBC (Auto) Urine Creatinine Urine Chloride Urine Total Protein Fluid Glucose Fluid Total Protein Vancomycin Trough Miscellaneous Test Crossmatch 06/17/18 06/17/18 06/17/18 05:52 11:46 16:58 WBC RBC Hgb Hct MCV MCHC RDW Plt Count Lymph % (Auto) [place] % (Auto) Lymph # [place] # Seg Neutrophils % Seg Neuts % (Manual) Lymphocytes % (Manual) Monocytes % (Manual) Seg Neutrophils # Seg Neutrophils # Man Lymphocytes # (Manual) Monocytes # (Manual) PT INR APTT Heparin Anti-Xa Level POC ABG pH POC ABG pCO2 POC ABG pO2 Sodium 133 L Potassium Chloride Carbon Dioxide 17 L BUN 87 H Creatinine 3.2 H Glucose POC Glucose 129 H 140 H Lactic Acid Calcium 8.1 L Phosphorus 6.50 H Magnesium Iron TIBC AST ALT Alkaline Phosphatase Lactate Dehydrogenase Total Creatine Kinase C-Reactive Protein Total Protein Albumin Prealbumin 0.130 L CA 19-9 Antigen Folate PTH Intact Urine WBC (Auto) Urine Creatinine Urine Chloride Urine Total Protein Fluid Glucose Fluid Total Protein Vancomycin Trough Miscellaneous Test Crossmatch 06/18/18 06/18/18 06/18/18 04:04 04:04 14:15 WBC RBC 3.00 L Hgb 8.9 L Hct 26.5 L MCV MCHC RDW 17.8 H Plt Count 494 H Lymph % (Auto) 7.9 L [place] % (Auto) 9.3 H Lymph # 0.8 L [place] # 1.0 H Seg Neutrophils % 81.2 H Seg Neuts % (Manual) Lymphocytes % (Manual) Monocytes % (Manual) Seg Neutrophils # 8.6 H Seg Neutrophils # Man Lymphocytes # (Manual) Monocytes # (Manual) PT INR APTT Heparin Anti-Xa Level POC ABG pH POC ABG pCO2 POC ABG pO2 Sodium 128 L Potassium Chloride Carbon Dioxide 18 L BUN 88 H Creatinine 3.1 H Glucose 129 H POC Glucose 143 H Lactic Acid Calcium 7.8 L Phosphorus 6.20 H Magnesium Iron TIBC AST ALT Alkaline Phosphatase Lactate Dehydrogenase Total Creatine Kinase C-Reactive Protein Total Protein Albumin Prealbumin CA 19-9 Antigen Folate PTH Intact Urine WBC (Auto) Urine Creatinine Urine Chloride Urine Total Protein Fluid Glucose Fluid Total Protein Vancomycin Trough Miscellaneous Test Crossmatch 06/18/18 06/19/18 06/19/18 17:54 01:45 06:20 WBC RBC Hgb Hct MCV MCHC RDW Plt Count Lymph % (Auto) [place] % (Auto) Lymph # [place] # Seg Neutrophils % Seg Neuts % (Manual) Lymphocytes % (Manual) Monocytes % (Manual) Seg Neutrophils # Seg Neutrophils # Man Lymphocytes # (Manual) Monocytes # (Manual) PT INR APTT Heparin Anti-Xa Level POC ABG pH POC ABG pCO2 POC ABG pO2 Sodium Potassium Chloride 93.9 L Carbon Dioxide BUN 78 H Creatinine 2.8 H Glucose POC Glucose 138 H 141 H Lactic Acid Calcium 7.1 L Phosphorus 6.40 H Magnesium Iron TIBC AST ALT Alkaline Phosphatase Lactate Dehydrogenase Total Creatine Kinase C-Reactive Protein Total Protein Albumin Prealbumin CA 19-9 Antigen Folate PTH Intact Urine WBC (Auto) Urine Creatinine Urine Chloride Urine Total Protein Fluid Glucose Fluid Total Protein Vancomycin Trough Miscellaneous Test Crossmatch 06/19/18 06/19/18 06/19/18 06:49 07:59 16:32 WBC RBC Hgb Hct MCV MCHC RDW Plt Count Lymph % (Auto) [place] % (Auto) Lymph # [place] # Seg Neutrophils % Seg Neuts % (Manual) Lymphocytes % (Manual) Monocytes % (Manual) Seg Neutrophils # Seg Neutrophils # Man Lymphocytes # (Manual) Monocytes # (Manual) PT INR APTT Heparin Anti-Xa Level POC ABG pH POC ABG pCO2 POC ABG pO2 Sodium Potassium Chloride Carbon Dioxide BUN 80 H Creatinine 2.9 H Glucose 123 H POC Glucose 130 H 134 H Lactic Acid Calcium 7.7 L Phosphorus Magnesium Iron TIBC AST ALT Alkaline Phosphatase Lactate Dehydrogenase Total Creatine Kinase C-Reactive Protein Total Protein Albumin Prealbumin CA 19-9 Antigen Folate PTH Intact Urine WBC (Auto) Urine Creatinine Urine Chloride Urine Total Protein Fluid Glucose Fluid Total Protein Vancomycin Trough Miscellaneous Test Crossmatch 06/20/18 06/20/18 06/20/18 00:11 05:55 05:55 WBC RBC 2.73 L Hgb 8.0 L Hct 24.2 L MCV MCHC RDW 17.4 H Plt Count 512 H Lymph % (Auto) 12.3 L [place] % (Auto) 11.3 H Lymph # 1.1 L [place] # 1.0 H Seg Neutrophils % 74.8 H Seg Neuts % (Manual) Lymphocytes % (Manual) Monocytes % (Manual) Seg Neutrophils # Seg Neutrophils # Man Lymphocytes # (Manual) Monocytes # (Manual) PT INR APTT Heparin Anti-Xa Level POC ABG pH POC ABG pCO2 POC ABG pO2 Sodium Potassium Chloride Carbon Dioxide 32 H BUN 70 H Creatinine 2.5 H Glucose 105 H POC Glucose 131 H Lactic Acid Calcium 8.0 L Phosphorus Magnesium Iron TIBC AST ALT Alkaline Phosphatase Lactate Dehydrogenase Total Creatine Kinase C-Reactive Protein Total Protein Albumin Prealbumin CA 19-9 Antigen Folate PTH Intact Urine WBC (Auto) Urine Creatinine Urine Chloride Urine Total Protein Fluid Glucose Fluid Total Protein Vancomycin Trough Miscellaneous Test Crossmatch 06/20/18 06/20/18 06/20/18 05:55 12:10 16:01 WBC RBC Hgb Hct MCV MCHC RDW Plt Count Lymph % (Auto) [place] % (Auto) Lymph # [place] # Seg Neutrophils % Seg Neuts % (Manual) Lymphocytes % (Manual) Monocytes % (Manual) Seg Neutrophils # Seg Neutrophils # Man Lymphocytes # (Manual) Monocytes # (Manual) PT INR APTT Heparin Anti-Xa Level POC ABG pH POC ABG pCO2 POC ABG pO2 Sodium Potassium Chloride Carbon Dioxide BUN Creatinine Glucose POC Glucose 112 H 127 H 145 H Lactic Acid Calcium Phosphorus Magnesium Iron TIBC AST ALT Alkaline Phosphatase Lactate Dehydrogenase Total Creatine Kinase C-Reactive Protein Total Protein Albumin Prealbumin CA 19-9 Antigen Folate PTH Intact Urine WBC (Auto) Urine Creatinine Urine Chloride Urine Total Protein Fluid Glucose Fluid Total Protein Vancomycin Trough Miscellaneous Test Crossmatch 06/20/18 06/21/18 06/21/18 23:54 05:50 05:50 WBC RBC 2.57 L Hgb 7.7 L Hct 26.6 L MCV 104 H MCHC 29 L RDW 19.1 H Plt Count 521 H Lymph % (Auto) 10.0 L [place] % (Auto) 7.4 H Lymph # 1.0 L [place] # Seg Neutrophils % 81.3 H Seg Neuts % (Manual) Lymphocytes % (Manual) Monocytes % (Manual) Seg Neutrophils # 7.9 H Seg Neutrophils # Man Lymphocytes # (Manual) Monocytes # (Manual) PT INR APTT Heparin Anti-Xa Level POC ABG pH POC ABG pCO2 POC ABG pO2 Sodium Potassium 5.8 H D Chloride 90.3 L Carbon Dioxide 37 H BUN 57 H Creatinine 1.9 H Glucose POC Glucose 154 H Lactic Acid Calcium 7.3 L Phosphorus Magnesium Iron TIBC AST 50 H ALT Alkaline Phosphatase 190 H Lactate Dehydrogenase Total Creatine Kinase C-Reactive Protein Total Protein Albumin 1.8 L Prealbumin CA 19-9 Antigen Folate PTH Intact Urine WBC (Auto) Urine Creatinine Urine Chloride Urine Total Protein Fluid Glucose Fluid Total Protein Vancomycin Trough Miscellaneous Test Crossmatch 06/21/18 06/21/18 06/21/18 06:57 13:37 17:00 WBC RBC Hgb Hct MCV MCHC RDW Plt Count Lymph % (Auto) [place] % (Auto) Lymph # [place] # Seg Neutrophils % Seg Neuts % (Manual) Lymphocytes % (Manual) Monocytes % (Manual) Seg Neutrophils # Seg Neutrophils # Man Lymphocytes # (Manual) Monocytes # (Manual) PT INR APTT Heparin Anti-Xa Level POC ABG pH POC ABG pCO2 POC ABG pO2 Sodium Potassium Chloride Carbon Dioxide BUN Creatinine Glucose 111 H POC Glucose 141 H 148 H Lactic Acid Calcium Phosphorus Magnesium Iron TIBC AST ALT Alkaline Phosphatase Lactate Dehydrogenase Total Creatine Kinase C-Reactive Protein Total Protein Albumin Prealbumin CA 19-9 Antigen Folate PTH Intact Urine WBC (Auto) Urine Creatinine Urine Chloride Urine Total Protein Fluid Glucose Fluid Total Protein Vancomycin Trough Miscellaneous Test Crossmatch 06/21/18 06/21/18 06/22/18 17:27 22:01 06:02 WBC RBC Hgb Hct MCV MCHC RDW Plt Count Lymph % (Auto) [place] % (Auto) Lymph # [place] # Seg Neutrophils % Seg Neuts % (Manual) Lymphocytes % (Manual) Monocytes % (Manual) Seg Neutrophils # Seg Neutrophils # Man Lymphocytes # (Manual) Monocytes # (Manual) PT INR APTT Heparin Anti-Xa Level POC ABG pH POC ABG pCO2 POC ABG pO2 Sodium Potassium 3.2 L Chloride Carbon Dioxide 39 H BUN 53 H Creatinine 1.9 H Glucose 1348 H* POC Glucose 130 H 122 H Lactic Acid Calcium 7.5 L Phosphorus Magnesium Iron TIBC AST ALT Alkaline Phosphatase Lactate Dehydrogenase Total Creatine Kinase C-Reactive Protein Total Protein Albumin Prealbumin CA 19-9 Antigen Folate PTH Intact Urine WBC (Auto) Urine Creatinine Urine Chloride Urine Total Protein Fluid Glucose Fluid Total Protein Vancomycin Trough Miscellaneous Test Crossmatch 06/22/18 06/22/18 06/22/18 06:16 07:26 07:48 WBC RBC Hgb Hct MCV MCHC RDW Plt Count Lymph % (Auto) [place] % (Auto) Lymph # [place] # Seg Neutrophils % Seg Neuts % (Manual) Lymphocytes % (Manual) Monocytes % (Manual) Seg Neutrophils # Seg Neutrophils # Man Lymphocytes # (Manual) Monocytes # (Manual) PT INR APTT Heparin Anti-Xa Level POC ABG pH POC ABG pCO2 POC ABG pO2 Sodium Potassium Chloride Carbon Dioxide 37 H BUN 57 H Creatinine 1.9 H Glucose 147 H POC Glucose 148 H 153 H Lactic Acid Calcium 8.3 L Phosphorus Magnesium Iron TIBC AST ALT Alkaline Phosphatase Lactate Dehydrogenase Total Creatine Kinase C-Reactive Protein Total Protein Albumin Prealbumin CA 19-9 Antigen Folate PTH Intact Urine WBC (Auto) Urine Creatinine Urine Chloride Urine Total Protein Fluid Glucose Fluid Total Protein Vancomycin Trough Miscellaneous Test Crossmatch 06/22/18 06/22/18 06/22/18 11:26 16:26 23:57 WBC RBC Hgb Hct MCV MCHC RDW Plt Count Lymph % (Auto) [place] % (Auto) Lymph # [place] # Seg Neutrophils % Seg Neuts % (Manual) Lymphocytes % (Manual) Monocytes % (Manual) Seg Neutrophils # Seg Neutrophils # Man Lymphocytes # (Manual) Monocytes # (Manual) PT INR APTT Heparin Anti-Xa Level POC ABG pH POC ABG pCO2 POC ABG pO2 Sodium Potassium Chloride Carbon Dioxide BUN Creatinine Glucose POC Glucose 121 H 122 H 180 H Lactic Acid Calcium Phosphorus Magnesium Iron TIBC AST ALT Alkaline Phosphatase Lactate Dehydrogenase Total Creatine Kinase C-Reactive Protein Total Protein Albumin Prealbumin CA 19-9 Antigen Folate PTH Intact Urine WBC (Auto) Urine Creatinine Urine Chloride Urine Total Protein Fluid Glucose Fluid Total Protein Vancomycin Trough Miscellaneous Test Crossmatch 06/22/18 06/23/18 06/23/18 23:57 00:30 01:40 WBC RBC Hgb Hct MCV MCHC RDW Plt Count Lymph % (Auto) [place] % (Auto) Lymph # [place] # Seg Neutrophils % Seg Neuts % (Manual) Lymphocytes % (Manual) Monocytes % (Manual) Seg Neutrophils # Seg Neutrophils # Man Lymphocytes # (Manual) Monocytes # (Manual) PT INR APTT Heparin Anti-Xa Level POC ABG pH 7.195 L 7.235 L POC ABG pCO2 105.2 H 95.7 H POC ABG pO2 Sodium Potassium Chloride Carbon Dioxide BUN Creatinine Glucose POC Glucose Lactic Acid Calcium Phosphorus Magnesium Iron TIBC AST ALT Alkaline Phosphatase Lactate Dehydrogenase Total Creatine Kinase C-Reactive Protein Total Protein Albumin Prealbumin CA 19-9 Antigen Folate PTH Intact Urine WBC (Auto) Urine Creatinine 99.7 H Urine Chloride 10.0 L Urine Total Protein 272 H Fluid Glucose Fluid Total Protein Vancomycin Trough Miscellaneous Test Crossmatch 06/23/18 06/23/18 06/23/18 05:58 07:20 08:31 WBC 16.0 H RBC 2.35 L Hgb 6.7 L Hct 22.3 L MCV 95 H MCHC 30 L RDW 18.5 H Plt Count 512 H Lymph % (Auto) [place] % (Auto) Lymph # [place] # Seg Neutrophils % Seg Neuts % (Manual) Lymphocytes % (Manual) Monocytes % (Manual) Seg Neutrophils # Seg Neutrophils # Man Lymphocytes # (Manual) Monocytes # (Manual) PT INR APTT Heparin Anti-Xa Level POC ABG pH POC ABG pCO2 POC ABG pO2 Sodium Potassium Chloride Carbon Dioxide BUN Creatinine Glucose POC Glucose 116 H 123 H Lactic Acid Calcium Phosphorus Magnesium Iron TIBC AST ALT Alkaline Phosphatase Lactate Dehydrogenase Total Creatine Kinase C-Reactive Protein Total Protein Albumin Prealbumin CA 19-9 Antigen Folate PTH Intact Urine WBC (Auto) Urine Creatinine Urine Chloride Urine Total Protein Fluid Glucose Fluid Total Protein Vancomycin Trough Miscellaneous Test Crossmatch 06/23/18 06/23/18 06/23/18 08:31 08:34 08:34 WBC RBC Hgb Hct MCV MCHC RDW Plt Count 485 H Lymph % (Auto) [place] % (Auto) Lymph # [place] # Seg Neutrophils % Seg Neuts % (Manual) Lymphocytes % (Manual) Monocytes % (Manual) Seg Neutrophils # Seg Neutrophils # Man Lymphocytes # (Manual) Monocytes # (Manual) PT 15.2 H INR 1.15 H APTT 41.9 H Heparin Anti-Xa Level POC ABG pH POC ABG pCO2 POC ABG pO2 Sodium 148 H Potassium Chloride Carbon Dioxide BUN 59 H Creatinine 2.2 H Glucose 106 H POC Glucose Lactic Acid Calcium 8.2 L Phosphorus 6.60 H Magnesium Iron TIBC AST 46 H ALT Alkaline Phosphatase 188 H Lactate Dehydrogenase Total Creatine Kinase C-Reactive Protein Total Protein Albumin 1.6 L Prealbumin CA 19-9 Antigen Folate PTH Intact Urine WBC (Auto) Urine Creatinine Urine Chloride Urine Total Protein Fluid Glucose Fluid Total Protein Vancomycin Trough Miscellaneous Test Crossmatch 06/23/18 06/23/18 06/23/18 09:29 09:40 09:43 WBC RBC Hgb Hct MCV MCHC RDW Plt Count Lymph % (Auto) [place] % (Auto) Lymph # [place] # Seg Neutrophils % Seg Neuts % (Manual) Lymphocytes % (Manual) Monocytes % (Manual) Seg Neutrophils # Seg Neutrophils # Man Lymphocytes # (Manual) Monocytes # (Manual) PT INR APTT Heparin Anti-Xa Level POC ABG pH 7.521 H POC ABG pCO2 53.6 H 48.4 H POC ABG pO2 37 L 181 H Sodium Potassium Chloride Carbon Dioxide BUN Creatinine Glucose POC Glucose Lactic Acid Calcium Phosphorus Magnesium Iron TIBC AST ALT Alkaline Phosphatase Lactate Dehydrogenase Total Creatine Kinase C-Reactive Protein Total Protein Albumin Prealbumin CA 19-9 Antigen Folate PTH Intact Urine WBC (Auto) Urine Creatinine Urine Chloride Urine Total Protein Fluid Glucose Fluid Total Protein Vancomycin Trough Miscellaneous Test Crossmatch See Detail 06/23/18 06/23/18 06/23/18 17:03 17:03 18:33 WBC 22.2 H RBC 2.85 L Hgb 8.4 L Hct 25.6 L MCV MCHC RDW 17.6 H Plt Count 515 H Lymph % (Auto) [place] % (Auto) Lymph # [place] # Seg Neutrophils % Seg Neuts % (Manual) Lymphocytes % (Manual) Monocytes % (Manual) Seg Neutrophils # Seg Neutrophils # Man Lymphocytes # (Manual) Monocytes # (Manual) PT INR APTT Heparin Anti-Xa Level 0.13 L POC ABG pH POC ABG pCO2 POC ABG pO2 Sodium Potassium Chloride Carbon Dioxide BUN Creatinine Glucose POC Glucose < 40 L Lactic Acid Calcium Phosphorus Magnesium Iron TIBC AST ALT Alkaline Phosphatase Lactate Dehydrogenase Total Creatine Kinase C-Reactive Protein Total Protein Albumin Prealbumin CA 19-9 Antigen Folate PTH Intact Urine WBC (Auto) Urine Creatinine Urine Chloride Urine Total Protein Fluid Glucose Fluid Total Protein Vancomycin Trough Miscellaneous Test Crossmatch 06/23/18 06/23/18 06/24/18 23:53 Unknown 00:30 WBC RBC Hgb Hct MCV MCHC RDW Plt Count Lymph % (Auto) [place] % (Auto) Lymph # [place] # Seg Neutrophils % Seg Neuts % (Manual) Lymphocytes % (Manual) Monocytes % (Manual) Seg Neutrophils # Seg Neutrophils # Man Lymphocytes # (Manual) Monocytes # (Manual) PT INR APTT Heparin Anti-Xa Level POC ABG pH POC ABG pCO2 POC ABG pO2 Sodium 148 H Potassium Chloride Carbon Dioxide 36 H BUN 57 H Creatinine 1.9 H Glucose POC Glucose 140 H Lactic Acid Calcium 8.3 L Phosphorus Magnesium Iron TIBC AST ALT Alkaline Phosphatase Lactate Dehydrogenase Total Creatine Kinase C-Reactive Protein Total Protein Albumin Prealbumin CA 19-9 Antigen Folate PTH Intact Urine WBC (Auto) 8.0 H Urine Creatinine Urine Chloride Urine Total Protein Fluid Glucose Fluid Total Protein Vancomycin Trough Miscellaneous Test Crossmatch 06/24/18 06/24/18 06/24/18 00:40 04:30 04:30 WBC 26.9 H RBC 2.79 L Hgb 8.1 L Hct 25.0 L MCV MCHC RDW 17.5 H Plt Count 487 H Lymph % (Auto) [place] % (Auto) Lymph # [place] # Seg Neutrophils % Seg Neuts % (Manual) Lymphocytes % (Manual) 6.0 L Monocytes % (Manual) 8.0 H Seg Neutrophils # Seg Neutrophils # Man 16.9 H Lymphocytes # (Manual) Monocytes # (Manual) 2.2 H PT INR APTT Heparin Anti-Xa Level 0.13 L POC ABG pH POC ABG pCO2 POC ABG pO2 Sodium 151 H Potassium Chloride Carbon Dioxide 36 H D BUN 74 H Creatinine 2.9 H Glucose 126 H POC Glucose Lactic Acid Calcium 8.2 L Phosphorus Magnesium Iron TIBC AST ALT Alkaline Phosphatase Lactate Dehydrogenase Total Creatine Kinase C-Reactive Protein Total Protein Albumin Prealbumin CA 19-9 Antigen Folate PTH Intact Urine WBC (Auto) Urine Creatinine Urine Chloride Urine Total Protein Fluid Glucose Fluid Total Protein Vancomycin Trough Miscellaneous Test Crossmatch 06/24/18 06/24/18 06/24/18 04:33 06:41 08:00 WBC RBC Hgb Hct MCV MCHC RDW Plt Count Lymph % (Auto) [place] % (Auto) Lymph # [place] # Seg Neutrophils % Seg Neuts % (Manual) Lymphocytes % (Manual) Monocytes % (Manual) Seg Neutrophils # Seg Neutrophils # Man Lymphocytes # (Manual) Monocytes # (Manual) PT INR APTT Heparin Anti-Xa Level 0.21 L POC ABG pH 7.517 H POC ABG pCO2 50.9 H POC ABG pO2 170 H Sodium Potassium Chloride Carbon Dioxide BUN Creatinine Glucose POC Glucose 140 H Lactic Acid Calcium Phosphorus Magnesium Iron TIBC AST ALT Alkaline Phosphatase Lactate Dehydrogenase Total Creatine Kinase C-Reactive Protein Total Protein Albumin Prealbumin CA 19-9 Antigen Folate PTH Intact Urine WBC (Auto) Urine Creatinine Urine Chloride Urine Total Protein Fluid Glucose Fluid Total Protein Vancomycin Trough Miscellaneous Test Crossmatch 06/24/18 06/24/18 06/24/18 12:27 14:20 18:46 WBC RBC Hgb Hct MCV MCHC RDW Plt Count Lymph % (Auto) [place] % (Auto) Lymph # [place] # Seg Neutrophils % Seg Neuts % (Manual) Lymphocytes % (Manual) Monocytes % (Manual) Seg Neutrophils # Seg Neutrophils # Man Lymphocytes # (Manual) Monocytes # (Manual) PT INR APTT Heparin Anti-Xa Level 0.28 L POC ABG pH POC ABG pCO2 POC ABG pO2 Sodium Potassium Chloride Carbon Dioxide BUN Creatinine Glucose POC Glucose 216 H 182 H Lactic Acid Calcium Phosphorus Magnesium Iron TIBC AST ALT Alkaline Phosphatase Lactate Dehydrogenase Total Creatine Kinase C-Reactive Protein Total Protein Albumin Prealbumin CA 19-9 Antigen Folate PTH Intact Urine WBC (Auto) Urine Creatinine Urine Chloride Urine Total Protein Fluid Glucose Fluid Total Protein Vancomycin Trough Miscellaneous Test Crossmatch 06/24/18 06/25/18 06/25/18 23:43 04:29 04:37 WBC RBC Hgb 8.1 L Hct 25.6 L MCV MCHC RDW Plt Count Lymph % (Auto) [place] % (Auto) Lymph # [place] # Seg Neutrophils % Seg Neuts % (Manual) Lymphocytes % (Manual) Monocytes % (Manual) Seg Neutrophils # Seg Neutrophils # Man Lymphocytes # (Manual) Monocytes # (Manual) PT INR APTT Heparin Anti-Xa Level POC ABG pH 7.534 H POC ABG pCO2 POC ABG pO2 161 H Sodium Potassium Chloride Carbon Dioxide BUN Creatinine Glucose POC Glucose 217 H Lactic Acid Calcium Phosphorus Magnesium Iron TIBC AST ALT Alkaline Phosphatase Lactate Dehydrogenase Total Creatine Kinase C-Reactive Protein Total Protein Albumin Prealbumin CA 19-9 Antigen Folate PTH Intact Urine WBC (Auto) Urine Creatinine Urine Chloride Urine Total Protein Fluid Glucose Fluid Total Protein Vancomycin Trough Miscellaneous Test Crossmatch 06/25/18 06/25/18 06/25/18 04:37 05:48 12:11 WBC RBC Hgb Hct MCV MCHC RDW Plt Count Lymph % (Auto) [place] % (Auto) Lymph # [place] # Seg Neutrophils % Seg Neuts % (Manual) Lymphocytes % (Manual) Monocytes % (Manual) Seg Neutrophils # Seg Neutrophils # Man Lymphocytes # (Manual) Monocytes # (Manual) PT INR APTT Heparin Anti-Xa Level POC ABG pH POC ABG pCO2 POC ABG pO2 Sodium Potassium 2.6 L* D Chloride Carbon Dioxide 32 H BUN 75 H Creatinine 3.1 H Glucose 244 H POC Glucose 225 H 252 H Lactic Acid Calcium Phosphorus Magnesium Iron TIBC AST ALT Alkaline Phosphatase Lactate Dehydrogenase Total Creatine Kinase C-Reactive Protein Total Protein Albumin Prealbumin CA 19-9 Antigen Folate PTH Intact Urine WBC (Auto) Urine Creatinine Urine Chloride Urine Total Protein Fluid Glucose Fluid Total Protein Vancomycin Trough Miscellaneous Test Crossmatch 06/25/18 06/25/18 06/25/18 15:58 18:12 20:30 WBC RBC Hgb 8.5 L Hct 27.6 L MCV MCHC RDW Plt Count Lymph % (Auto) [place] % (Auto) Lymph # [place] # Seg Neutrophils % Seg Neuts % (Manual) Lymphocytes % (Manual) Monocytes % (Manual) Seg Neutrophils # Seg Neutrophils # Man Lymphocytes # (Manual) Monocytes # (Manual) PT INR APTT Heparin Anti-Xa Level POC ABG pH POC ABG pCO2 POC ABG pO2 Sodium 148 H Potassium 2.4 L* Chloride Carbon Dioxide 31 H BUN 79 H Creatinine 3.0 H Glucose 152 H POC Glucose 199 H Lactic Acid Calcium 8.3 L Phosphorus Magnesium Iron TIBC AST ALT Alkaline Phosphatase Lactate Dehydrogenase Total Creatine Kinase C-Reactive Protein Total Protein Albumin Prealbumin CA 19-9 Antigen Folate PTH Intact Urine WBC (Auto) Urine Creatinine Urine Chloride Urine Total Protein Fluid Glucose Fluid Total Protein Vancomycin Trough Miscellaneous Test Crossmatch 06/26/18 06/26/18 06/26/18 04:00 04:00 04:00 WBC 26.2 H RBC 3.16 L Hgb 9.1 L Hct 28.8 L MCV MCHC RDW 18.2 H Plt Count Lymph % (Auto) [place] % (Auto) Lymph # [place] # Seg Neutrophils % Seg Neuts % (Manual) Lymphocytes % (Manual) 2.0 L Monocytes % (Manual) Seg Neutrophils # Seg Neutrophils # Man 11.5 H Lymphocytes # (Manual) 0.5 L Monocytes # (Manual) PT INR APTT Heparin Anti-Xa Level POC ABG pH POC ABG pCO2 POC ABG pO2 Sodium 146 H Potassium 3.2 L D 3.3 L Chloride 109.0 H 108.2 H Carbon Dioxide BUN 74 H 75 H Creatinine 2.9 H 2.9 H Glucose 62 L 60 L POC Glucose Lactic Acid Calcium 7.7 L 7.9 L Phosphorus Magnesium 1.60 L Iron TIBC AST ALT Alkaline Phosphatase 173 H Lactate Dehydrogenase Total Creatine Kinase C-Reactive Protein Total Protein 6.1 L Albumin 1.4 L Prealbumin CA 19-9 Antigen Folate PTH Intact Urine WBC (Auto) Urine Creatinine Urine Chloride Urine Total Protein Fluid Glucose Fluid Total Protein Vancomycin Trough Miscellaneous Test Crossmatch 06/26/18 06/26/18 06/26/18 05:57 05:59 06:22 WBC RBC Hgb Hct MCV MCHC RDW Plt Count Lymph % (Auto) [place] % (Auto) Lymph # [place] # Seg Neutrophils % Seg Neuts % (Manual) Lymphocytes % (Manual) Monocytes % (Manual) Seg Neutrophils # Seg Neutrophils # Man Lymphocytes # (Manual) Monocytes # (Manual) PT INR APTT Heparin Anti-Xa Level POC ABG pH 7.269 L POC ABG pCO2 68.0 H POC ABG pO2 73 L Sodium Potassium Chloride Carbon Dioxide BUN Creatinine Glucose POC Glucose 59 L 130 H Lactic Acid Calcium Phosphorus Magnesium Iron TIBC AST ALT Alkaline Phosphatase Lactate Dehydrogenase Total Creatine Kinase C-Reactive Protein Total Protein Albumin Prealbumin CA 19-9 Antigen Folate PTH Intact Urine WBC (Auto) Urine Creatinine Urine Chloride Urine Total Protein Fluid Glucose Fluid Total Protein Vancomycin Trough Miscellaneous Test Crossmatch 06/27/18 06/27/18 06/27/18 03:34 05:20 05:20 WBC RBC Hgb 6.7 L Hct 21.2 L D MCV MCHC RDW Plt Count Lymph % (Auto) [place] % (Auto) Lymph # [place] # Seg Neutrophils % Seg Neuts % (Manual) Lymphocytes % (Manual) Monocytes % (Manual) Seg Neutrophils # Seg Neutrophils # Man Lymphocytes # (Manual) Monocytes # (Manual) PT INR APTT Heparin Anti-Xa Level POC ABG pH 7.251 L POC ABG pCO2 63.7 H POC ABG pO2 157 H Sodium Potassium 5.9 H D Chloride Carbon Dioxide BUN 87 H Creatinine 4.4 H D Glucose 128 H POC Glucose Lactic Acid Calcium 8.1 L Phosphorus Magnesium Iron TIBC AST ALT Alkaline Phosphatase Lactate Dehydrogenase Total Creatine Kinase C-Reactive Protein Total Protein Albumin Prealbumin CA 19-9 Antigen Folate PTH Intact Urine WBC (Auto) Urine Creatinine Urine Chloride Urine Total Protein Fluid Glucose Fluid Total Protein Vancomycin Trough Miscellaneous Test Crossmatch 06/27/18 06/27/18 06/27/18 09:05 10:56 10:56 WBC RBC Hgb 6.9 L Hct 21.6 L MCV MCHC RDW Plt Count Lymph % (Auto) [place] % (Auto) Lymph # [place] # Seg Neutrophils % Seg Neuts % (Manual) Lymphocytes % (Manual) Monocytes % (Manual) Seg Neutrophils # Seg Neutrophils # Man Lymphocytes # (Manual) Monocytes # (Manual) PT INR APTT Heparin Anti-Xa Level POC ABG pH POC ABG pCO2 POC ABG pO2 Sodium Potassium 5.7 H Chloride Carbon Dioxide BUN Creatinine Glucose POC Glucose Lactic Acid Calcium Phosphorus Magnesium Iron TIBC AST ALT Alkaline Phosphatase Lactate Dehydrogenase Total Creatine Kinase C-Reactive Protein Total Protein Albumin Prealbumin CA 19-9 Antigen Folate PTH Intact Urine WBC (Auto) Urine Creatinine Urine Chloride Urine Total Protein Fluid Glucose Fluid Total Protein Vancomycin Trough Miscellaneous Test Crossmatch See Detail 06/27/18 06/27/18 06/27/18 10:56 12:07 17:33 WBC 25.2 H RBC 2.37 L Hgb 6.7 L Hct 21.6 L MCV MCHC 31 L RDW 18.0 H Plt Count Lymph % (Auto) [place] % (Auto) Lymph # [place] # Seg Neutrophils % Seg Neuts % (Manual) 97.0 H Lymphocytes % (Manual) 1.0 L Monocytes % (Manual) Seg Neutrophils # Seg Neutrophils # Man 24.4 H Lymphocytes # (Manual) 0.3 L Monocytes # (Manual) PT INR APTT Heparin Anti-Xa Level POC ABG pH POC ABG pCO2 POC ABG pO2 Sodium Potassium Chloride Carbon Dioxide BUN Creatinine Glucose POC Glucose 156 H 123 H Lactic Acid Calcium Phosphorus Magnesium Iron TIBC AST ALT Alkaline Phosphatase Lactate Dehydrogenase Total Creatine Kinase C-Reactive Protein Total Protein Albumin Prealbumin CA 19-9 Antigen Folate PTH Intact Urine WBC (Auto) Urine Creatinine Urine Chloride Urine Total Protein Fluid Glucose Fluid Total Protein Vancomycin Trough Miscellaneous Test Crossmatch 06/28/18 06/28/18 06/28/18 00:40 04:54 05:52 WBC RBC Hgb Hct MCV MCHC RDW Plt Count Lymph % (Auto) [place] % (Auto) Lymph # [place] # Seg Neutrophils % Seg Neuts % (Manual) Lymphocytes % (Manual) Monocytes % (Manual) Seg Neutrophils # Seg Neutrophils # Man Lymphocytes # (Manual) Monocytes # (Manual) PT INR APTT Heparin Anti-Xa Level POC ABG pH POC ABG pCO2 POC ABG pO2 Sodium Potassium Chloride Carbon Dioxide BUN 57 H Creatinine 3.3 H Glucose 107 H POC Glucose 127 H 117 H Lactic Acid Calcium Phosphorus Magnesium Iron TIBC AST ALT Alkaline Phosphatase Lactate Dehydrogenase Total Creatine Kinase C-Reactive Protein Total Protein Albumin Prealbumin CA 19-9 Antigen Folate PTH Intact Urine WBC (Auto) Urine Creatinine Urine Chloride Urine Total Protein Fluid Glucose Fluid Total Protein Vancomycin Trough Miscellaneous Test Crossmatch 06/28/18 06/29/18 06/29/18 09:24 04:18 04:18 WBC 21.3 H RBC 2.61 L Hgb 7.5 L 7.6 L Hct 23.0 L 23.1 L MCV MCHC RDW 17.5 H Plt Count Lymph % (Auto) [place] % (Auto) Lymph # [place] # Seg Neutrophils % Seg Neuts % (Manual) Lymphocytes % (Manual) Monocytes % (Manual) Seg Neutrophils # Seg Neutrophils # Man Lymphocytes # (Manual) Monocytes # (Manual) PT INR APTT Heparin Anti-Xa Level POC ABG pH POC ABG pCO2 POC ABG pO2 Sodium 136 L Potassium Chloride Carbon Dioxide BUN 69 H Creatinine 3.8 H Glucose POC Glucose Lactic Acid Calcium Phosphorus 5.10 H D Magnesium Iron TIBC AST ALT Alkaline Phosphatase Lactate Dehydrogenase Total Creatine Kinase C-Reactive Protein Total Protein Albumin Prealbumin CA 19-9 Antigen Folate PTH Intact Urine WBC (Auto) Urine Creatinine Urine Chloride Urine Total Protein Fluid Glucose Fluid Total Protein Vancomycin Trough Miscellaneous Test Crossmatch 06/29/18 06/30/18 04:28 04:02 WBC RBC Hgb Hct MCV MCHC RDW Plt Count Lymph % (Auto) [place] % (Auto) Lymph # [place] # Seg Neutrophils % Seg Neuts % (Manual) Lymphocytes % (Manual) Monocytes % (Manual) Seg Neutrophils # Seg Neutrophils # Man Lymphocytes # (Manual) Monocytes # (Manual) PT INR APTT Heparin Anti-Xa Level POC ABG pH POC ABG pCO2 46.9 H POC ABG pO2 Sodium Potassium Chloride Carbon Dioxide BUN 78 H Creatinine 3.8 H Glucose POC Glucose Lactic Acid Calcium Phosphorus 5.20 H Magnesium Iron TIBC AST ALT Alkaline Phosphatase Lactate Dehydrogenase Total Creatine Kinase C-Reactive Protein Total Protein Albumin Prealbumin CA 19-9 Antigen Folate PTH Intact Urine WBC (Auto) Urine Creatinine Urine Chloride Urine Total Protein Fluid Glucose Fluid Total Protein Vancomycin Trough Miscellaneous Test Crossmatch
--- NOTE | 2018-06-30 10:17 | Progress Note ---
Assessment and Plan 1. Acute kidney injury: Initial MARYLOU in the setting of bilateral hydronephrosis secondary to pelvic mass , now s/p bilateral nephrostomy. Recurrent Acute kidney injury likely ATN. Patient was restarted on hemodialysis 3 days ago due to hyperkalemia. 2. Electrolytes: Hyperkalemia, improved. 3. Hypotension: Off pressors. 4. Bowel obstruction: S/p colostomy. 5. Bilateral hydronephrosis: Secondary to pelvic mass. S/p bilateral nephrostomy. 6. Respiratory failure: On vent. 7. S/p Cardiac arrest. 8. Anemia. 9. 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 10. 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 Subjective Date of service: 06/30/18 Principal diagnosis: anemia, sq cell ca Interval history: Patient was seen and examined at the bedside. Objective - Vital Signs Vital signs: Vital Signs - 12hr 06/29/18 06/30/18 06/30/18 23:00 00:00 00:39 Pulse Rate 67 68 68 Respiratory 27 H 30 H Rate Blood Pressure 83/54 88/55 85/55 O2 Sat by Pulse 99 99 99 Oximetry 06/30/18 06/30/18 06/30/18 01:00 02:00 03:00 Pulse Rate 70 71 73 Respiratory 30 H 26 H 30 H Rate Blood Pressure 85/54 83/50 86/53 O2 Sat by Pulse 99 99 99 Oximetry 06/30/18 06/30/18 06/30/18 04:00 05:00 06:00 Pulse Rate 73 78 78 Respiratory 30 H 30 H 30 H Rate Blood Pressure 81/50 100/62 88/56 O2 Sat by Pulse 99 100 99 Oximetry 06/30/18 08:00 Pulse Rate 78 Respiratory Rate Blood Pressure 68/38 O2 Sat by Pulse 99 Oximetry - General Appearance General appearance: well-developed, appears stated age, intubated, other (on vent) EENT: ATNC Neck: supple Respiratory: Present: Clear to Ascultation Cardiology: regular, S1S2, no murmurs Gastrointestinal: other (bilateral nephrostomy and ostomy noted) Neurologic: other (unresponsive, pupils are not reacting) Musculoskeletal: other (dependent edema noted) - Lab 06/29/18 04:18 06/30/18 04:02 Most recent lab results Calcium 8.7 mg/dL (8.4-10.2) 06/30/18 04:02 Phosphorus 5.20 mg/dL (2.5-4.5) H 06/30/18 04:02 Magnesium 2.30 mg/dL (1.7-2.3) 06/30/18 04:02 Urine Creatinine 99.7 mg/dL (0.1-20.0) H 06/23/18 00:30 Urine Sodium Not Reportable 06/23/18 00:30 Urine Total Protein 272 mg/dL (5-11.8) H 06/23/18 00:30
--- NOTE | 2018-06-30 11:03 | Progress Note ---
Assessment and Plan Acute hypoxemic respiratory failure Bilateral pneumonia, possibly aspiration. Sepsis syndrome. 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 Acute deep venous thrombosis. Hypertensive urgency. Hyperkalemia, now resolved. Moderate to severe protein calorie malnutrition Hypernatremia. Hypokalemia Hypochloremia. Anemia, normocytic. (ABLA) - for terminal extubation later today - continue other care per attending / other consultants The high probability of a clinically significant, sudden or life threatening deterioration of the [respiratory,cardiac, urologic and renal] system(s) required my full and direct attention, intervention and personal management. The aggregate critical care time was [30] minutes without overlap. Time includes spent on; [x] Data Review and interpretation [x] Patient assessment and monitoring of vital signs [x] Documentation [x] Medication orders and management Subjective Date of service: 06/30/18 Principal diagnosis: Acute Hypoxemic Resp Failure; Sepsis Syndrome; Acute VTE; Prostate Cancer Interval history: Patient is seen today for: Acute Hypoxemic Resp Failure; Sepsis Syndrome; Acute VTE; Prostate Cancer Seen and examined at bedside; 24hour events reviewed; nursing and respiratory care staff consulted; no adverse overnight events reported to me; resting peacefully in bed; declared clinically brain after apnea and other testing ; family around for tentative terminal extubation no new issues otherwise; remains on MVS Objective Vital Signs - 12hr 06/30/18 06/30/18 06/30/18 00:00 00:39 01:00 Pulse Rate 68 68 70 Respiratory 30 H 30 H Rate Blood Pressure 88/55 85/55 85/54 O2 Sat by Pulse 99 99 99 Oximetry 06/30/18 06/30/18 06/30/18 02:00 03:00 04:00 Pulse Rate 71 73 73 Respiratory 26 H 30 H 30 H Rate Blood Pressure 83/50 86/53 81/50 O2 Sat by Pulse 99 99 99 Oximetry 06/30/18 06/30/18 06/30/18 05:00 06:00 08:00 Pulse Rate 78 78 78 Respiratory 30 H 30 H Rate Blood Pressure 100/62 88/56 68/38 O2 Sat by Pulse 100 99 99 Oximetry Constitutional: no acute distress, other (chronically ill looking middle aged AAM, normocephalic and atraumatic, ETT to vent) Eyes: non-icteric, other (dilated pupils) ENT: oropharynx moist, other (ETT 23 cm BEATRIS) Neck: supple, no lymphadenopathy, no JVD, other (no thyromegaly) Effort: normal (riding set ventilator rate), other (breathing at the set rate) Ascultation: Bilateral: diminished breath sounds (bases), rales (L>R base) Percussion: Bilateral: dull (bases) Cardiovascular: regular rate and rhythm, other (No R/M) Gastrointestinal: hypoactive bowel sounds, soft, tender (mild), non-distended, other (, scrotal edema) Integumentary: other (femoral vascath) Extremities: no cyanosis, no edema, pulses normal, no ischemia or petechiae Neurologic: other (obtunded) Psychiatric: other (Obtunded) CBC and BMP: 06/29/18 04:18 06/30/18 04:02 ABG, PT/INR, D-dimer: ABG POC ABG pH 7.364 (7.35-7.45) 06/29/18 04:28 POC ABG pCO2 46.9 (35-45) H 06/29/18 04:28 POC ABG pO2 100 (80-105) 06/29/18 04:28 POC ABG HCO3 26.7 06/29/18 04:28 POC ABG Total CO2 28 06/29/18 04:28 POC ABG O2 Sat 97 06/29/18 04:28 PT/INR, D-dimer PT 15.2 Sec. (12.2-14.9) H 06/23/18 08:34 INR 1.15 (0.87-1.13) H 06/23/18 08:34 Abnormal lab findings: Abnormal Labs 05/13/18 05/13/18 05/13/18 04:27 04:27 19:39 WBC RBC 3.13 L Hgb 9.4 L Hct 26.8 L MCV MCHC 35 H RDW Plt Count Lymph % (Auto) [place] % (Auto) 9.6 H Lymph # [place] # Seg Neutrophils % Seg Neuts % (Manual) Lymphocytes % (Manual) Monocytes % (Manual) Seg Neutrophils # Seg Neutrophils # Man Lymphocytes # (Manual) Monocytes # (Manual) PT INR APTT Heparin Anti-Xa Level POC ABG pH POC ABG pCO2 POC ABG pO2 Sodium 132 L Potassium 5.5 H Chloride 94.1 L Carbon Dioxide 19 L BUN 72 H Creatinine 14.4 H Glucose POC Glucose Lactic Acid Calcium Phosphorus Magnesium Iron TIBC AST ALT Alkaline Phosphatase Lactate Dehydrogenase Total Creatine Kinase C-Reactive Protein Total Protein Albumin 2.8 L Prealbumin CA 19-9 Antigen Folate PTH Intact Urine WBC (Auto) Urine Creatinine 66.0 H Urine Chloride 27.8 L Urine Total Protein 24 H Fluid Glucose Fluid Total Protein Vancomycin Trough Miscellaneous Test Crossmatch 05/13/18 05/14/18 05/14/18 20:00 05:05 05:05 WBC RBC Hgb Hct MCV MCHC RDW Plt Count Lymph % (Auto) [place] % (Auto) Lymph # [place] # Seg Neutrophils % Seg Neuts % (Manual) Lymphocytes % (Manual) Monocytes % (Manual) Seg Neutrophils # Seg Neutrophils # Man Lymphocytes # (Manual) Monocytes # (Manual) PT INR APTT Heparin Anti-Xa Level POC ABG pH POC ABG pCO2 POC ABG pO2 Sodium 132 L 131 L Potassium 5.2 H 5.8 H Chloride 93.0 L 95.6 L Carbon Dioxide 19 L 20 L BUN 74 H 81 H Creatinine 15.0 H 16.6 H Glucose 134 H 127 H POC Glucose Lactic Acid Calcium 8.2 L 7.9 L Phosphorus 6.30 H Magnesium Iron TIBC AST ALT Alkaline Phosphatase Lactate Dehydrogenase Total Creatine Kinase 236 H C-Reactive Protein Total Protein Albumin Prealbumin CA 19-9 Antigen Folate PTH Intact 65.37 H Urine WBC (Auto) Urine Creatinine Urine Chloride Urine Total Protein Fluid Glucose Fluid Total Protein Vancomycin Trough Miscellaneous Test Crossmatch 05/14/18 05/14/18 05/14/18 09:28 10:56 13:29 WBC RBC Hgb Hct MCV MCHC RDW Plt Count Lymph % (Auto) [place] % (Auto) Lymph # [place] # Seg Neutrophils % Seg Neuts % (Manual) Lymphocytes % (Manual) Monocytes % (Manual) Seg Neutrophils # Seg Neutrophils # Man Lymphocytes # (Manual) Monocytes # (Manual) PT INR APTT 38.2 H Heparin Anti-Xa Level POC ABG pH POC ABG pCO2 POC ABG pO2 Sodium Potassium Chloride Carbon Dioxide BUN Creatinine Glucose POC Glucose 127 H 126 H Lactic Acid Calcium Phosphorus Magnesium Iron TIBC AST ALT Alkaline Phosphatase Lactate Dehydrogenase Total Creatine Kinase C-Reactive Protein Total Protein Albumin Prealbumin CA 19-9 Antigen Folate PTH Intact Urine WBC (Auto) Urine Creatinine Urine Chloride Urine Total Protein Fluid Glucose Fluid Total Protein Vancomycin Trough Miscellaneous Test Crossmatch 05/15/18 05/15/18 05/16/18 08:06 08:06 07:02 WBC RBC 2.84 L 2.74 L Hgb 8.5 L 8.5 L Hct 24.2 L 23.5 L MCV MCHC 35 H 36 H RDW Plt Count Lymph % (Auto) [place] % (Auto) 10.4 H 11.0 H Lymph # 1.1 L [place] # 0.9 H Seg Neutrophils % 72.6 H Seg Neuts % (Manual) Lymphocytes % (Manual) Monocytes % (Manual) Seg Neutrophils # Seg Neutrophils # Man Lymphocytes # (Manual) Monocytes # (Manual) PT INR APTT Heparin Anti-Xa Level POC ABG pH POC ABG pCO2 POC ABG pO2 Sodium Potassium Chloride Carbon Dioxide 19 L BUN 66 H Creatinine 12.0 H Glucose 115 H POC Glucose Lactic Acid Calcium 8.1 L Phosphorus Magnesium Iron TIBC AST ALT Alkaline Phosphatase Lactate Dehydrogenase Total Creatine Kinase C-Reactive Protein Total Protein Albumin Prealbumin CA 19-9 Antigen Folate PTH Intact Urine WBC (Auto) Urine Creatinine Urine Chloride Urine Total Protein Fluid Glucose Fluid Total Protein Vancomycin Trough Miscellaneous Test Crossmatch 05/16/18 05/16/18 05/17/18 07:02 07:02 05:08 WBC RBC 2.78 L Hgb 8.2 L Hct 23.9 L MCV MCHC RDW Plt Count Lymph % (Auto) [place] % (Auto) 13.9 H Lymph # [place] # 0.9 H Seg Neutrophils % Seg Neuts % (Manual) Lymphocytes % (Manual) Monocytes % (Manual) Seg Neutrophils # Seg Neutrophils # Man Lymphocytes # (Manual) Monocytes # (Manual) PT INR APTT Heparin Anti-Xa Level POC ABG pH POC ABG pCO2 POC ABG pO2 Sodium Potassium Chloride Carbon Dioxide BUN 28 H Creatinine 2.4 H D Glucose POC Glucose Lactic Acid Calcium 8.3 L Phosphorus Magnesium 1.50 L Iron 24 L TIBC 160 L AST ALT Alkaline Phosphatase Lactate Dehydrogenase Total Creatine Kinase C-Reactive Protein Total Protein Albumin Prealbumin CA 19-9 Antigen Folate 5.39 L PTH Intact Urine WBC (Auto) Urine Creatinine Urine Chloride Urine Total Protein Fluid Glucose Fluid Total Protein Vancomycin Trough Miscellaneous Test Crossmatch 05/17/18 05/18/18 05/18/18 05:08 05:57 05:57 WBC RBC 2.79 L Hgb 8.3 L Hct 24.0 L MCV MCHC 35 H RDW Plt Count Lymph % (Auto) [place] % (Auto) 11.8 H Lymph # [place] # 0.9 H Seg Neutrophils % Seg Neuts % (Manual) Lymphocytes % (Manual) Monocytes % (Manual) Seg Neutrophils # Seg Neutrophils # Man Lymphocytes # (Manual) Monocytes # (Manual) PT INR APTT Heparin Anti-Xa Level POC ABG pH POC ABG pCO2 POC ABG pO2 Sodium Potassium Chloride Carbon Dioxide BUN Creatinine Glucose POC Glucose Lactic Acid Calcium 7.7 L 8.0 L Phosphorus Magnesium 1.60 L Iron TIBC AST ALT Alkaline Phosphatase Lactate Dehydrogenase Total Creatine Kinase C-Reactive Protein Total Protein Albumin Prealbumin CA 19-9 Antigen Folate PTH Intact Urine WBC (Auto) Urine Creatinine Urine Chloride Urine Total Protein Fluid Glucose Fluid Total Protein Vancomycin Trough Miscellaneous Test Crossmatch 05/19/18 05/19/18 05/20/18 05:33 05:33 05:38 WBC RBC 2.95 L Hgb 8.8 L Hct 25.8 L MCV MCHC RDW Plt Count Lymph % (Auto) 10.1 L [place] % (Auto) Lymph # 1.1 L [place] # Seg Neutrophils % 85.2 H Seg Neuts % (Manual) Lymphocytes % (Manual) Monocytes % (Manual) Seg Neutrophils # 9.0 H Seg Neutrophils # Man Lymphocytes # (Manual) Monocytes # (Manual) PT INR APTT Heparin Anti-Xa Level POC ABG pH POC ABG pCO2 POC ABG pO2 Sodium 135 L Potassium Chloride Carbon Dioxide BUN Creatinine Glucose 132 H POC Glucose Lactic Acid Calcium 7.8 L 8.3 L Phosphorus Magnesium 1.40 L Iron TIBC AST ALT Alkaline Phosphatase Lactate Dehydrogenase Total Creatine Kinase C-Reactive Protein Total Protein Albumin Prealbumin CA 19-9 Antigen Folate PTH Intact Urine WBC (Auto) Urine Creatinine Urine Chloride Urine Total Protein Fluid Glucose Fluid Total Protein Vancomycin Trough Miscellaneous Test Crossmatch 05/21/18 05/21/18 05/22/18 04:46 15:30 06:49 WBC 20.0 H RBC 2.70 L Hgb 7.8 L Hct 23.3 L MCV MCHC RDW Plt Count Lymph % (Auto) [place] % (Auto) Lymph # [place] # Seg Neutrophils % Seg Neuts % (Manual) 85.0 H Lymphocytes % (Manual) 4.0 L Monocytes % (Manual) Seg Neutrophils # Seg Neutrophils # Man 17.0 H Lymphocytes # (Manual) 0.8 L Monocytes # (Manual) PT INR APTT Heparin Anti-Xa Level POC ABG pH POC ABG pCO2 POC ABG pO2 Sodium 135 L Potassium 3.5 L Chloride Carbon Dioxide 21 L BUN 22 H Creatinine Glucose POC Glucose Lactic Acid Calcium 8.1 L Phosphorus Magnesium Iron TIBC AST ALT Alkaline Phosphatase Lactate Dehydrogenase Total Creatine Kinase C-Reactive Protein Total Protein Albumin Prealbumin CA 19-9 Antigen Folate PTH Intact Urine WBC (Auto) 28.0 H Urine Creatinine Urine Chloride Urine Total Protein Fluid Glucose Fluid Total Protein Vancomycin Trough Miscellaneous Test Crossmatch 05/22/18 05/22/18 05/23/18 06:49 11:23 09:03 WBC RBC Hgb Hct MCV MCHC RDW Plt Count Lymph % (Auto) [place] % (Auto) Lymph # [place] # Seg Neutrophils % Seg Neuts % (Manual) Lymphocytes % (Manual) Monocytes % (Manual) Seg Neutrophils # Seg Neutrophils # Man Lymphocytes # (Manual) Monocytes # (Manual) PT INR APTT Heparin Anti-Xa Level POC ABG pH POC ABG pCO2 POC ABG pO2 Sodium 134 L Potassium 3.5 L Chloride Carbon Dioxide 21 L BUN 35 H 36 H Creatinine 1.7 H Glucose 107 H POC Glucose Lactic Acid Calcium 7.9 L Phosphorus Magnesium 2.50 H Iron TIBC AST ALT Alkaline Phosphatase Lactate Dehydrogenase Total Creatine Kinase C-Reactive Protein Total Protein Albumin Prealbumin CA 19-9 Antigen Folate PTH Intact Urine WBC (Auto) Urine Creatinine Urine Chloride Urine Total Protein Fluid Glucose Fluid Total Protein Vancomycin Trough Miscellaneous Test Crossmatch See Detail 05/23/18 05/23/18 05/23/18 09:03 09:03 17:34 WBC 26.3 H RBC 3.57 L Hgb 10.4 L Hct 31.1 L D MCV MCHC RDW Plt Count Lymph % (Auto) [place] % (Auto) Lymph # [place] # Seg Neutrophils % Seg Neuts % (Manual) Lymphocytes % (Manual) Monocytes % (Manual) Seg Neutrophils # Seg Neutrophils # Man Lymphocytes # (Manual) Monocytes # (Manual) PT 18.3 H INR 1.43 H APTT 40.0 H Heparin Anti-Xa Level POC ABG pH POC ABG pCO2 POC ABG pO2 Sodium Potassium Chloride Carbon Dioxide BUN Creatinine Glucose POC Glucose 108 H Lactic Acid Calcium Phosphorus Magnesium Iron TIBC AST ALT Alkaline Phosphatase Lactate Dehydrogenase Total Creatine Kinase C-Reactive Protein Total Protein Albumin Prealbumin CA 19-9 Antigen Folate PTH Intact Urine WBC (Auto) Urine Creatinine Urine Chloride Urine Total Protein Fluid Glucose Fluid Total Protein Vancomycin Trough Miscellaneous Test Crossmatch 05/23/18 05/24/18 05/24/18 21:14 04:43 08:04 WBC RBC Hgb Hct MCV MCHC RDW Plt Count Lymph % (Auto) [place] % (Auto) Lymph # [place] # Seg Neutrophils % Seg Neuts % (Manual) Lymphocytes % (Manual) Monocytes % (Manual) Seg Neutrophils # Seg Neutrophils # Man Lymphocytes # (Manual) Monocytes # (Manual) PT INR APTT Heparin Anti-Xa Level POC ABG pH POC ABG pCO2 POC ABG pO2 Sodium 146 H Potassium Chloride 108.6 H Carbon Dioxide BUN 33 H Creatinine Glucose 109 H POC Glucose 110 H 106 H Lactic Acid Calcium 8.3 L Phosphorus Magnesium 2.50 H Iron TIBC AST ALT Alkaline Phosphatase Lactate Dehydrogenase Total Creatine Kinase C-Reactive Protein Total Protein Albumin Prealbumin CA 19-9 Antigen Folate PTH Intact Urine WBC (Auto) Urine Creatinine Urine Chloride Urine Total Protein Fluid Glucose Fluid Total Protein Vancomycin Trough Miscellaneous Test Crossmatch 05/25/18 05/25/18 05/25/18 05:42 05:49 19:50 WBC RBC Hgb Hct MCV MCHC RDW Plt Count Lymph % (Auto) [place] % (Auto) Lymph # [place] # Seg Neutrophils % Seg Neuts % (Manual) Lymphocytes % (Manual) Monocytes % (Manual) Seg Neutrophils # Seg Neutrophils # Man Lymphocytes # (Manual) Monocytes # (Manual) PT INR APTT Heparin Anti-Xa Level POC ABG pH POC ABG pCO2 POC ABG pO2 Sodium 150 H Potassium Chloride 112.5 H Carbon Dioxide BUN 34 H Creatinine Glucose 102 H POC Glucose 107 H Lactic Acid Calcium Phosphorus Magnesium Iron TIBC AST ALT Alkaline Phosphatase Lactate Dehydrogenase Total Creatine Kinase C-Reactive Protein 34.50 H Total Protein Albumin Prealbumin CA 19-9 Antigen Folate PTH Intact Urine WBC (Auto) Urine Creatinine Urine Chloride Urine Total Protein Fluid Glucose Fluid Total Protein Vancomycin Trough Miscellaneous Test Crossmatch 05/25/18 05/25/18 05/25/18 19:50 21:05 22:46 WBC RBC Hgb Hct MCV MCHC RDW Plt Count Lymph % (Auto) [place] % (Auto) Lymph # [place] # Seg Neutrophils % Seg Neuts % (Manual) Lymphocytes % (Manual) Monocytes % (Manual) Seg Neutrophils # Seg Neutrophils # Man Lymphocytes # (Manual) Monocytes # (Manual) PT INR APTT Heparin Anti-Xa Level POC ABG pH 7.483 H POC ABG pCO2 24.0 L POC ABG pO2 72 L Sodium Potassium Chloride Carbon Dioxide BUN Creatinine Glucose POC Glucose Lactic Acid 5.90 H* Calcium Phosphorus Magnesium Iron TIBC AST ALT Alkaline Phosphatase Lactate Dehydrogenase Total Creatine Kinase C-Reactive Protein Total Protein Albumin Prealbumin CA 19-9 Antigen Folate PTH Intact Urine WBC (Auto) Urine Creatinine Urine Chloride Urine Total Protein Fluid Glucose Fluid Total Protein Vancomycin Trough 25.1 H Miscellaneous Test Crossmatch 05/25/18 05/26/18 05/26/18 22:46 00:21 00:51 WBC RBC Hgb Hct MCV MCHC RDW Plt Count Lymph % (Auto) [place] % (Auto) Lymph # [place] # Seg Neutrophils % Seg Neuts % (Manual) Lymphocytes % (Manual) Monocytes % (Manual) Seg Neutrophils # Seg Neutrophils # Man Lymphocytes # (Manual) Monocytes # (Manual) PT INR APTT Heparin Anti-Xa Level POC ABG pH POC ABG pCO2 POC ABG pO2 Sodium Potassium Chloride Carbon Dioxide BUN Creatinine Glucose POC Glucose 133 H Lactic Acid 8.10 H* 6.20 H* Calcium Phosphorus Magnesium Iron TIBC AST ALT Alkaline Phosphatase Lactate Dehydrogenase Total Creatine Kinase C-Reactive Protein Total Protein Albumin Prealbumin CA 19-9 Antigen Folate PTH Intact Urine WBC (Auto) Urine Creatinine Urine Chloride Urine Total Protein Fluid Glucose Fluid Total Protein Vancomycin Trough Miscellaneous Test Crossmatch 05/26/18 05/26/18 05/26/18 01:13 02:24 02:24 WBC 18.7 H RBC Hgb 11.6 L Hct MCV MCHC RDW Plt Count Lymph % (Auto) [place] % (Auto) Lymph # [place] # Seg Neutrophils % Seg Neuts % (Manual) Lymphocytes % (Manual) Monocytes % (Manual) Seg Neutrophils # Seg Neutrophils # Man Lymphocytes # (Manual) Monocytes # (Manual) PT INR APTT Heparin Anti-Xa Level POC ABG pH POC ABG pCO2 POC ABG pO2 Sodium 147 H Potassium 6.2 H* D Chloride 111.9 H Carbon Dioxide 19 L BUN 80 H Creatinine 5.1 H D Glucose 112 H POC Glucose Lactic Acid 5.20 H* Calcium 6.7 L D Phosphorus Magnesium Iron TIBC AST ALT Alkaline Phosphatase Lactate Dehydrogenase Total Creatine Kinase C-Reactive Protein Total Protein Albumin Prealbumin CA 19-9 Antigen Folate PTH Intact Urine WBC (Auto) Urine Creatinine Urine Chloride Urine Total Protein Fluid Glucose Fluid Total Protein Vancomycin Trough Miscellaneous Test Crossmatch 05/26/18 05/26/18 05/26/18 04:20 04:20 05:39 WBC RBC Hgb Hct MCV MCHC RDW Plt Count Lymph % (Auto) [place] % (Auto) Lymph # [place] # Seg Neutrophils % Seg Neuts % (Manual) Lymphocytes % (Manual) Monocytes % (Manual) Seg Neutrophils # Seg Neutrophils # Man Lymphocytes # (Manual) Monocytes # (Manual) PT INR APTT Heparin Anti-Xa Level POC ABG pH POC ABG pCO2 POC ABG pO2 Sodium 150 H Potassium Chloride 110.0 H Carbon Dioxide 19 L BUN 66 H Creatinine Glucose 166 H POC Glucose 187 H Lactic Acid 5.10 H* Calcium 6.9 L Phosphorus 6.70 H D Magnesium Iron TIBC AST ALT Alkaline Phosphatase Lactate Dehydrogenase Total Creatine Kinase C-Reactive Protein Total Protein Albumin Prealbumin CA 19-9 Antigen Folate PTH Intact Urine WBC (Auto) Urine Creatinine Urine Chloride Urine Total Protein Fluid Glucose Fluid Total Protein Vancomycin Trough Miscellaneous Test Crossmatch 05/26/18 05/26/18 05/26/18 06:02 07:29 11:00 WBC RBC Hgb Hct MCV MCHC RDW Plt Count Lymph % (Auto) [place] % (Auto) Lymph # [place] # Seg Neutrophils % Seg Neuts % (Manual) Lymphocytes % (Manual) Monocytes % (Manual) Seg Neutrophils # Seg Neutrophils # Man Lymphocytes # (Manual) Monocytes # (Manual) PT INR APTT Heparin Anti-Xa Level POC ABG pH POC ABG pCO2 28.8 L POC ABG pO2 Sodium Potassium Chloride Carbon Dioxide BUN Creatinine Glucose POC Glucose Lactic Acid 4.80 H* 3.80 H* Calcium Phosphorus Magnesium Iron TIBC AST ALT Alkaline Phosphatase Lactate Dehydrogenase Total Creatine Kinase C-Reactive Protein Total Protein Albumin Prealbumin CA 19-9 Antigen Folate PTH Intact Urine WBC (Auto) Urine Creatinine Urine Chloride Urine Total Protein Fluid Glucose Fluid Total Protein Vancomycin Trough Miscellaneous Test Crossmatch 05/26/18 05/26/18 05/26/18 11:01 12:28 18:00 WBC RBC Hgb Hct MCV MCHC RDW Plt Count Lymph % (Auto) [place] % (Auto) Lymph # [place] # Seg Neutrophils % Seg Neuts % (Manual) Lymphocytes % (Manual) Monocytes % (Manual) Seg Neutrophils # Seg Neutrophils # Man Lymphocytes # (Manual) Monocytes # (Manual) PT INR APTT Heparin Anti-Xa Level POC ABG pH POC ABG pCO2 POC ABG pO2 Sodium 150 H 151 H Potassium 5.3 H D 6.1 H* Chloride 110.3 H 117.0 H Carbon Dioxide 21 L 20 L BUN 75 H 77 H Creatinine 4.3 H D 4.6 H Glucose 161 H POC Glucose 114 H Lactic Acid Calcium 7.5 L 6.7 L Phosphorus Magnesium Iron TIBC AST 1041 H ALT 406 H Alkaline Phosphatase 281 H Lactate Dehydrogenase Total Creatine Kinase C-Reactive Protein Total Protein 4.4 L Albumin 1.3 L Prealbumin CA 19-9 Antigen Folate PTH Intact Urine WBC (Auto) Urine Creatinine Urine Chloride Urine Total Protein Fluid Glucose Fluid Total Protein Vancomycin Trough Miscellaneous Test Crossmatch 05/26/18 05/26/18 05/27/18 18:02 19:17 01:01 WBC 21.7 H RBC 2.70 L Hgb 7.8 L D Hct 24.6 L D MCV MCHC RDW 15.3 H Plt Count Lymph % (Auto) [place] % (Auto) Lymph # [place] # Seg Neutrophils % Seg Neuts % (Manual) 94.0 H Lymphocytes % (Manual) 3.0 L Monocytes % (Manual) Seg Neutrophils # Seg Neutrophils # Man 20.4 H Lymphocytes # (Manual) 0.7 L Monocytes # (Manual) PT INR APTT Heparin Anti-Xa Level POC ABG pH 7.159 L 7.205 L POC ABG pCO2 54.5 H 53.0 H POC ABG pO2 252 H Sodium Potassium Chloride Carbon Dioxide BUN Creatinine Glucose POC Glucose Lactic Acid Calcium Phosphorus Magnesium Iron TIBC AST ALT Alkaline Phosphatase Lactate Dehydrogenase Total Creatine Kinase C-Reactive Protein Total Protein Albumin Prealbumin CA 19-9 Antigen Folate PTH Intact Urine WBC (Auto) Urine Creatinine Urine Chloride Urine Total Protein Fluid Glucose Fluid Total Protein Vancomycin Trough Miscellaneous Test Crossmatch 05/27/18 05/27/18 05/27/18 05:15 05:15 06:11 WBC 24.9 H RBC 2.86 L Hgb 8.1 L Hct 25.9 L MCV MCHC RDW 15.5 H Plt Count Lymph % (Auto) [place] % (Auto) Lymph # [place] # Seg Neutrophils % Seg Neuts % (Manual) Lymphocytes % (Manual) Monocytes % (Manual) Seg Neutrophils # Seg Neutrophils # Man Lymphocytes # (Manual) Monocytes # (Manual) PT INR APTT Heparin Anti-Xa Level POC ABG pH 7.265 L POC ABG pCO2 46.2 H POC ABG pO2 111 H Sodium 149 H Potassium 6.9 H* Chloride 113.5 H Carbon Dioxide BUN 89 H Creatinine 5.2 H Glucose 118 H POC Glucose Lactic Acid Calcium 7.0 L Phosphorus 9.70 H D Magnesium Iron TIBC AST 876 H ALT 408 H Alkaline Phosphatase Lactate Dehydrogenase Total Creatine Kinase C-Reactive Protein Total Protein 5.2 L Albumin 1.5 L Prealbumin CA 19-9 Antigen Folate PTH Intact Urine WBC (Auto) Urine Creatinine Urine Chloride Urine Total Protein Fluid Glucose Fluid Total Protein Vancomycin Trough Miscellaneous Test Crossmatch 05/27/18 05/27/18 05/27/18 08:48 10:22 10:22 WBC RBC Hgb Hct MCV MCHC RDW Plt Count Lymph % (Auto) [place] % (Auto) Lymph # [place] # Seg Neutrophils % Seg Neuts % (Manual) Lymphocytes % (Manual) Monocytes % (Manual) Seg Neutrophils # Seg Neutrophils # Man Lymphocytes # (Manual) Monocytes # (Manual) PT INR APTT Heparin Anti-Xa Level POC ABG pH POC ABG pCO2 POC ABG pO2 Sodium 146 H Potassium 6.1 H* Chloride 108.2 H Carbon Dioxide 21 L BUN 88 H Creatinine 5.6 H Glucose 163 H POC Glucose 164 H Lactic Acid Calcium 6.7 L Phosphorus Magnesium Iron TIBC AST ALT Alkaline Phosphatase Lactate Dehydrogenase Total Creatine Kinase C-Reactive Protein 40.70 H Total Protein Albumin Prealbumin CA 19-9 Antigen Folate PTH Intact Urine WBC (Auto) Urine Creatinine Urine Chloride Urine Total Protein Fluid Glucose Fluid Total Protein Vancomycin Trough Miscellaneous Test Crossmatch 05/27/18 05/27/18 05/27/18 13:02 17:39 23:27 WBC RBC Hgb Hct MCV MCHC RDW Plt Count Lymph % (Auto) [place] % (Auto) Lymph # [place] # Seg Neutrophils % Seg Neuts % (Manual) Lymphocytes % (Manual) Monocytes % (Manual) Seg Neutrophils # Seg Neutrophils # Man Lymphocytes # (Manual) Monocytes # (Manual) PT INR APTT Heparin Anti-Xa Level POC ABG pH POC ABG pCO2 POC ABG pO2 Sodium Potassium Chloride Carbon Dioxide BUN Creatinine Glucose POC Glucose 59 L 132 H Lactic Acid Calcium Phosphorus Magnesium Iron TIBC AST ALT Alkaline Phosphatase Lactate Dehydrogenase Total Creatine Kinase C-Reactive Protein Total Protein Albumin Prealbumin CA 19-9 Antigen Folate PTH Intact Urine WBC (Auto) Urine Creatinine Urine Chloride Urine Total Protein Fluid Glucose Fluid Total Protein Vancomycin Trough Miscellaneous Test Flexitest 1 H Crossmatch 05/27/18 05/28/18 05/28/18 Unknown 04:32 05:00 WBC RBC Hgb Hct MCV MCHC RDW Plt Count Lymph % (Auto) [place] % (Auto) Lymph # [place] # Seg Neutrophils % Seg Neuts % (Manual) Lymphocytes % (Manual) Monocytes % (Manual) Seg Neutrophils # Seg Neutrophils # Man Lymphocytes # (Manual) Monocytes # (Manual) PT INR APTT Heparin Anti-Xa Level POC ABG pH POC ABG pCO2 POC ABG pO2 134 H Sodium Potassium Chloride Carbon Dioxide BUN 69 H Creatinine 4.4 H Glucose 118 H POC Glucose Lactic Acid Calcium 8.0 L D Phosphorus 6.80 H D Magnesium Iron TIBC AST ALT Alkaline Phosphatase Lactate Dehydrogenase Total Creatine Kinase C-Reactive Protein Total Protein Albumin Prealbumin CA 19-9 Antigen Folate PTH Intact Urine WBC (Auto) 120.0 H Urine Creatinine Urine Chloride Urine Total Protein Fluid Glucose Fluid Total Protein Vancomycin Trough Miscellaneous Test Crossmatch 05/28/18 05/28/18 05/28/18 05:00 05:27 13:04 WBC 26.5 H RBC 2.69 L Hgb 7.7 L Hct 23.6 L MCV MCHC RDW Plt Count Lymph % (Auto) [place] % (Auto) Lymph # [place] # Seg Neutrophils % Seg Neuts % (Manual) 96.0 H Lymphocytes % (Manual) 0 L Monocytes % (Manual) Seg Neutrophils # Seg Neutrophils # Man 25.4 H Lymphocytes # (Manual) 0.0 L Monocytes # (Manual) PT INR APTT Heparin Anti-Xa Level POC ABG pH POC ABG pCO2 POC ABG pO2 Sodium Potassium Chloride Carbon Dioxide BUN Creatinine Glucose POC Glucose 128 H 155 H Lactic Acid Calcium Phosphorus Magnesium Iron TIBC AST ALT Alkaline Phosphatase Lactate Dehydrogenase Total Creatine Kinase C-Reactive Protein Total Protein Albumin Prealbumin CA 19-9 Antigen Folate PTH Intact Urine WBC (Auto) Urine Creatinine Urine Chloride Urine Total Protein Fluid Glucose Fluid Total Protein Vancomycin Trough Miscellaneous Test Crossmatch 05/28/18 05/29/18 05/29/18 17:56 03:35 04:00 WBC RBC Hgb Hct MCV MCHC RDW Plt Count Lymph % (Auto) [place] % (Auto) Lymph # [place] # Seg Neutrophils % Seg Neuts % (Manual) Lymphocytes % (Manual) Monocytes % (Manual) Seg Neutrophils # Seg Neutrophils # Man Lymphocytes # (Manual) Monocytes # (Manual) PT INR APTT Heparin Anti-Xa Level POC ABG pH 7.471 H POC ABG pCO2 POC ABG pO2 78 L Sodium Potassium Chloride Carbon Dioxide BUN 50 H Creatinine 3.9 H Glucose POC Glucose 110 H Lactic Acid Calcium 7.7 L Phosphorus Magnesium 1.50 L Iron TIBC AST 218 H ALT 204 H Alkaline Phosphatase Lactate Dehydrogenase Total Creatine Kinase C-Reactive Protein Total Protein 5.4 L Albumin 1.6 L Prealbumin CA 19-9 Antigen Folate PTH Intact Urine WBC (Auto) Urine Creatinine Urine Chloride Urine Total Protein Fluid Glucose Fluid Total Protein Vancomycin Trough Miscellaneous Test Crossmatch 05/29/18 05/29/18 05/30/18 11:51 23:56 04:54 WBC RBC Hgb Hct MCV MCHC RDW Plt Count Lymph % (Auto) [place] % (Auto) Lymph # [place] # Seg Neutrophils % Seg Neuts % (Manual) Lymphocytes % (Manual) Monocytes % (Manual) Seg Neutrophils # Seg Neutrophils # Man Lymphocytes # (Manual) Monocytes # (Manual) PT INR APTT Heparin Anti-Xa Level POC ABG pH POC ABG pCO2 POC ABG pO2 Sodium Potassium Chloride Carbon Dioxide BUN Creatinine Glucose POC Glucose 131 H 119 H 115 H Lactic Acid Calcium Phosphorus Magnesium Iron TIBC AST ALT Alkaline Phosphatase Lactate Dehydrogenase Total Creatine Kinase C-Reactive Protein Total Protein Albumin Prealbumin CA 19-9 Antigen Folate PTH Intact Urine WBC (Auto) Urine Creatinine Urine Chloride Urine Total Protein Fluid Glucose Fluid Total Protein Vancomycin Trough Miscellaneous Test Crossmatch 05/30/18 05/30/18 05/30/18 05:07 05:15 05:15 WBC 16.2 H RBC 2.53 L Hgb 7.4 L Hct 21.9 L MCV MCHC RDW Plt Count Lymph % (Auto) [place] % (Auto) Lymph # [place] # Seg Neutrophils % Seg Neuts % (Manual) Lymphocytes % (Manual) Monocytes % (Manual) Seg Neutrophils # Seg Neutrophils # Man Lymphocytes # (Manual) Monocytes # (Manual) PT INR APTT Heparin Anti-Xa Level POC ABG pH POC ABG pCO2 34.5 L POC ABG pO2 133 H Sodium 135 L Potassium Chloride 97.5 L Carbon Dioxide BUN 69 H Creatinine 5.4 H Glucose 105 H POC Glucose Lactic Acid Calcium 7.5 L Phosphorus 5.30 H D Magnesium Iron TIBC AST ALT Alkaline Phosphatase Lactate Dehydrogenase Total Creatine Kinase C-Reactive Protein Total Protein Albumin Prealbumin CA 19-9 Antigen Folate PTH Intact Urine WBC (Auto) Urine Creatinine Urine Chloride Urine Total Protein Fluid Glucose Fluid Total Protein Vancomycin Trough Miscellaneous Test Crossmatch 05/30/18 05/30/18 05/31/18 12:13 17:10 04:50 WBC 18.7 H RBC 2.86 L Hgb 8.2 L Hct 24.8 L MCV MCHC RDW Plt Count Lymph % (Auto) [place] % (Auto) Lymph # [place] # Seg Neutrophils % Seg Neuts % (Manual) 91.0 H Lymphocytes % (Manual) 2.0 L Monocytes % (Manual) Seg Neutrophils # Seg Neutrophils # Man 17.0 H Lymphocytes # (Manual) 0.4 L Monocytes # (Manual) PT INR APTT Heparin Anti-Xa Level POC ABG pH POC ABG pCO2 POC ABG pO2 Sodium Potassium Chloride Carbon Dioxide BUN Creatinine Glucose POC Glucose 132 H 122 H Lactic Acid Calcium Phosphorus Magnesium Iron TIBC AST ALT Alkaline Phosphatase Lactate Dehydrogenase Total Creatine Kinase C-Reactive Protein Total Protein Albumin Prealbumin CA 19-9 Antigen Folate PTH Intact Urine WBC (Auto) Urine Creatinine Urine Chloride Urine Total Protein Fluid Glucose Fluid Total Protein Vancomycin Trough Miscellaneous Test Crossmatch 05/31/18 05/31/18 05/31/18 04:50 05:45 11:37 WBC RBC Hgb Hct MCV MCHC RDW Plt Count Lymph % (Auto) [place] % (Auto) Lymph # [place] # Seg Neutrophils % Seg Neuts % (Manual) Lymphocytes % (Manual) Monocytes % (Manual) Seg Neutrophils # Seg Neutrophils # Man Lymphocytes # (Manual) Monocytes # (Manual) PT INR APTT Heparin Anti-Xa Level POC ABG pH POC ABG pCO2 POC ABG pO2 Sodium 132 L Potassium Chloride 92.4 L Carbon Dioxide BUN 77 H Creatinine 5.9 H Glucose POC Glucose 111 H 136 H Lactic Acid Calcium 7.3 L Phosphorus 6.40 H D Magnesium Iron TIBC AST ALT Alkaline Phosphatase Lactate Dehydrogenase Total Creatine Kinase C-Reactive Protein Total Protein Albumin Prealbumin CA 19-9 Antigen Folate PTH Intact Urine WBC (Auto) Urine Creatinine Urine Chloride Urine Total Protein Fluid Glucose Fluid Total Protein Vancomycin Trough Miscellaneous Test Crossmatch 05/31/18 06/01/18 06/01/18 17:52 00:09 04:00 WBC RBC Hgb Hct MCV MCHC RDW Plt Count Lymph % (Auto) [place] % (Auto) Lymph # [place] # Seg Neutrophils % Seg Neuts % (Manual) Lymphocytes % (Manual) Monocytes % (Manual) Seg Neutrophils # Seg Neutrophils # Man Lymphocytes # (Manual) Monocytes # (Manual) PT INR APTT Heparin Anti-Xa Level POC ABG pH POC ABG pCO2 POC ABG pO2 Sodium Potassium Chloride 97.5 L Carbon Dioxide BUN 49 H Creatinine 4.2 H Glucose 104 H POC Glucose 115 H 114 H Lactic Acid Calcium 7.3 L Phosphorus 4.70 H D Magnesium Iron TIBC AST ALT Alkaline Phosphatase Lactate Dehydrogenase Total Creatine Kinase C-Reactive Protein Total Protein Albumin Prealbumin CA 19-9 Antigen Folate PTH Intact Urine WBC (Auto) Urine Creatinine Urine Chloride Urine Total Protein Fluid Glucose Fluid Total Protein Vancomycin Trough Miscellaneous Test Crossmatch 06/01/18 06/01/18 06/02/18 11:10 17:56 00:15 WBC RBC Hgb Hct MCV MCHC RDW Plt Count Lymph % (Auto) [place] % (Auto) Lymph # [place] # Seg Neutrophils % Seg Neuts % (Manual) Lymphocytes % (Manual) Monocytes % (Manual) Seg Neutrophils # Seg Neutrophils # Man Lymphocytes # (Manual) Monocytes # (Manual) PT INR APTT Heparin Anti-Xa Level POC ABG pH POC ABG pCO2 POC ABG pO2 Sodium Potassium Chloride Carbon Dioxide BUN Creatinine Glucose POC Glucose 123 H 126 H 135 H Lactic Acid Calcium Phosphorus Magnesium Iron TIBC AST ALT Alkaline Phosphatase Lactate Dehydrogenase Total Creatine Kinase C-Reactive Protein Total Protein Albumin Prealbumin CA 19-9 Antigen Folate PTH Intact Urine WBC (Auto) Urine Creatinine Urine Chloride Urine Total Protein Fluid Glucose Fluid Total Protein Vancomycin Trough Miscellaneous Test Crossmatch 06/02/18 06/02/18 06/02/18 05:23 12:42 13:05 WBC RBC Hgb Hct MCV MCHC RDW Plt Count Lymph % (Auto) [place] % (Auto) Lymph # [place] # Seg Neutrophils % Seg Neuts % (Manual) Lymphocytes % (Manual) Monocytes % (Manual) Seg Neutrophils # Seg Neutrophils # Man Lymphocytes # (Manual) Monocytes # (Manual) PT 17.1 H INR 1.34 H APTT Heparin Anti-Xa Level POC ABG pH POC ABG pCO2 POC ABG pO2 Sodium Potassium Chloride Carbon Dioxide BUN Creatinine Glucose POC Glucose 135 H 142 H Lactic Acid Calcium Phosphorus Magnesium Iron TIBC AST ALT Alkaline Phosphatase Lactate Dehydrogenase Total Creatine Kinase C-Reactive Protein Total Protein Albumin Prealbumin CA 19-9 Antigen Folate PTH Intact Urine WBC (Auto) Urine Creatinine Urine Chloride Urine Total Protein Fluid Glucose Fluid Total Protein Vancomycin Trough Miscellaneous Test Crossmatch 06/02/18 06/02/18 06/03/18 Unknown Unknown 00:54 WBC 20.8 H RBC 2.67 L Hgb 7.7 L Hct 23.0 L MCV MCHC RDW Plt Count 500 H Lymph % (Auto) [place] % (Auto) Lymph # [place] # Seg Neutrophils % Seg Neuts % (Manual) Lymphocytes % (Manual) Monocytes % (Manual) Seg Neutrophils # Seg Neutrophils # Man Lymphocytes # (Manual) Monocytes # (Manual) PT INR APTT Heparin Anti-Xa Level POC ABG pH POC ABG pCO2 POC ABG pO2 Sodium 136 L Potassium 3.5 L Chloride 96.9 L Carbon Dioxide BUN 62 H Creatinine 4.9 H Glucose 133 H POC Glucose 125 H Lactic Acid Calcium 7.2 L Phosphorus 5.00 H Magnesium Iron TIBC AST 46 H ALT 66 H Alkaline Phosphatase Lactate Dehydrogenase Total Creatine Kinase C-Reactive Protein Total Protein 5.7 L Albumin 1.5 L Prealbumin CA 19-9 Antigen Folate PTH Intact Urine WBC (Auto) Urine Creatinine Urine Chloride Urine Total Protein Fluid Glucose Fluid Total Protein Vancomycin Trough Miscellaneous Test Crossmatch 06/03/18 06/03/18 06/03/18 03:31 09:18 09:18 WBC RBC Hgb Hct MCV MCHC RDW Plt Count Lymph % (Auto) [place] % (Auto) Lymph # [place] # Seg Neutrophils % Seg Neuts % (Manual) Lymphocytes % (Manual) Monocytes % (Manual) Seg Neutrophils # Seg Neutrophils # Man Lymphocytes # (Manual) Monocytes # (Manual) PT 17.1 H INR 1.34 H APTT Heparin Anti-Xa Level POC ABG pH POC ABG pCO2 POC ABG pO2 Sodium 136 L Potassium Chloride Carbon Dioxide BUN 41 H Creatinine 3.4 H Glucose 129 H POC Glucose Lactic Acid Calcium 7.4 L Phosphorus Magnesium Iron TIBC AST ALT Alkaline Phosphatase Lactate Dehydrogenase Total Creatine Kinase C-Reactive Protein 11.10 H Total Protein Albumin Prealbumin CA 19-9 Antigen Folate PTH Intact Urine WBC (Auto) Urine Creatinine Urine Chloride Urine Total Protein Fluid Glucose Fluid Total Protein Vancomycin Trough Miscellaneous Test Crossmatch 06/03/18 06/03/18 06/03/18 16:07 21:18 Unknown WBC RBC Hgb Hct MCV MCHC RDW Plt Count Lymph % (Auto) [place] % (Auto) Lymph # [place] # Seg Neutrophils % Seg Neuts % (Manual) Lymphocytes % (Manual) Monocytes % (Manual) Seg Neutrophils # Seg Neutrophils # Man Lymphocytes # (Manual) Monocytes # (Manual) PT INR APTT Heparin Anti-Xa Level POC ABG pH POC ABG pCO2 POC ABG pO2 Sodium Potassium Chloride Carbon Dioxide BUN Creatinine Glucose POC Glucose 144 H 128 H Lactic Acid Calcium Phosphorus Magnesium Iron TIBC AST ALT Alkaline Phosphatase Lactate Dehydrogenase Total Creatine Kinase C-Reactive Protein Total Protein Albumin Prealbumin CA 19-9 Antigen Folate PTH Intact Urine WBC (Auto) Urine Creatinine Urine Chloride Urine Total Protein Fluid Glucose 10 L Fluid Total Protein 3.7 L Vancomycin Trough Miscellaneous Test Crossmatch 06/04/18 06/04/18 06/04/18 04:31 06:14 11:38 WBC RBC Hgb Hct MCV MCHC RDW Plt Count Lymph % (Auto) [place] % (Auto) Lymph # [place] # Seg Neutrophils % Seg Neuts % (Manual) Lymphocytes % (Manual) Monocytes % (Manual) Seg Neutrophils # Seg Neutrophils # Man Lymphocytes # (Manual) Monocytes # (Manual) PT INR APTT Heparin Anti-Xa Level POC ABG pH POC ABG pCO2 POC ABG pO2 Sodium Potassium Chloride Carbon Dioxide BUN 55 H Creatinine 3.7 H Glucose 151 H POC Glucose 145 H 129 H Lactic Acid Calcium 7.8 L Phosphorus 4.60 H Magnesium Iron TIBC AST ALT Alkaline Phosphatase Lactate Dehydrogenase Total Creatine Kinase C-Reactive Protein Total Protein Albumin Prealbumin CA 19-9 Antigen Folate PTH Intact Urine WBC (Auto) Urine Creatinine Urine Chloride Urine Total Protein Fluid Glucose Fluid Total Protein Vancomycin Trough Miscellaneous Test Crossmatch 06/04/18 06/04/18 06/04/18 17:09 20:00 21:29 WBC RBC Hgb 8.8 L Hct 27.3 L MCV MCHC RDW Plt Count Lymph % (Auto) [place] % (Auto) Lymph # [place] # Seg Neutrophils % Seg Neuts % (Manual) Lymphocytes % (Manual) Monocytes % (Manual) Seg Neutrophils # Seg Neutrophils # Man Lymphocytes # (Manual) Monocytes # (Manual) PT INR APTT Heparin Anti-Xa Level POC ABG pH POC ABG pCO2 POC ABG pO2 Sodium Potassium Chloride Carbon Dioxide BUN Creatinine Glucose POC Glucose 142 H 130 H Lactic Acid Calcium Phosphorus Magnesium Iron TIBC AST ALT Alkaline Phosphatase Lactate Dehydrogenase Total Creatine Kinase C-Reactive Protein Total Protein Albumin Prealbumin CA 19-9 Antigen Folate PTH Intact Urine WBC (Auto) Urine Creatinine Urine Chloride Urine Total Protein Fluid Glucose Fluid Total Protein Vancomycin Trough Miscellaneous Test Crossmatch 06/05/18 06/05/18 06/05/18 06:30 07:00 07:00 WBC 19.3 H RBC 2.94 L Hgb 8.3 L Hct 25.6 L MCV MCHC RDW 15.7 H Plt Count 568 H Lymph % (Auto) 4.7 L [place] % (Auto) Lymph # 0.9 L [place] # 1.1 H Seg Neutrophils % 88.9 H Seg Neuts % (Manual) Lymphocytes % (Manual) Monocytes % (Manual) Seg Neutrophils # 17.2 H Seg Neutrophils # Man Lymphocytes # (Manual) Monocytes # (Manual) PT INR APTT Heparin Anti-Xa Level POC ABG pH POC ABG pCO2 POC ABG pO2 Sodium Potassium 3.4 L D Chloride Carbon Dioxide BUN 67 H Creatinine 3.6 H Glucose 145 H POC Glucose 153 H Lactic Acid Calcium 7.9 L Phosphorus 4.60 H Magnesium Iron TIBC AST ALT Alkaline Phosphatase Lactate Dehydrogenase Total Creatine Kinase C-Reactive Protein Total Protein Albumin Prealbumin CA 19-9 Antigen Folate PTH Intact Urine WBC (Auto) Urine Creatinine Urine Chloride Urine Total Protein Fluid Glucose Fluid Total Protein Vancomycin Trough Miscellaneous Test Crossmatch 06/05/18 06/05/18 06/06/18 12:10 16:01 06:39 WBC RBC Hgb Hct MCV MCHC RDW Plt Count Lymph % (Auto) [place] % (Auto) Lymph # [place] # Seg Neutrophils % Seg Neuts % (Manual) Lymphocytes % (Manual) Monocytes % (Manual) Seg Neutrophils # Seg Neutrophils # Man Lymphocytes # (Manual) Monocytes # (Manual) PT INR APTT Heparin Anti-Xa Level POC ABG pH POC ABG pCO2 POC ABG pO2 Sodium Potassium Chloride Carbon Dioxide BUN Creatinine Glucose POC Glucose 150 H 129 H 131 H Lactic Acid Calcium Phosphorus Magnesium Iron TIBC AST ALT Alkaline Phosphatase Lactate Dehydrogenase Total Creatine Kinase C-Reactive Protein Total Protein Albumin Prealbumin CA 19-9 Antigen Folate PTH Intact Urine WBC (Auto) Urine Creatinine Urine Chloride Urine Total Protein Fluid Glucose Fluid Total Protein Vancomycin Trough Miscellaneous Test Crossmatch 06/06/18 06/06/18 06/06/18 07:14 07:14 07:14 WBC 16.5 H RBC 2.84 L Hgb 8.1 L Hct 25.2 L MCV MCHC RDW 16.4 H Plt Count 526 H Lymph % (Auto) 6.5 L [place] % (Auto) Lymph # 1.1 L [place] # 1.2 H Seg Neutrophils % 85.3 H Seg Neuts % (Manual) Lymphocytes % (Manual) Monocytes % (Manual) Seg Neutrophils # 14.1 H Seg Neutrophils # Man Lymphocytes # (Manual) Monocytes # (Manual) PT INR APTT Heparin Anti-Xa Level POC ABG pH POC ABG pCO2 POC ABG pO2 Sodium Potassium Chloride 109.1 H Carbon Dioxide 21 L BUN 76 H Creatinine 3.5 H Glucose 111 H POC Glucose Lactic Acid Calcium 8.1 L Phosphorus Magnesium Iron TIBC AST ALT Alkaline Phosphatase Lactate Dehydrogenase Total Creatine Kinase C-Reactive Protein 4.70 H Total Protein Albumin Prealbumin CA 19-9 Antigen Folate PTH Intact Urine WBC (Auto) Urine Creatinine Urine Chloride Urine Total Protein Fluid Glucose Fluid Total Protein Vancomycin Trough Miscellaneous Test Crossmatch 06/06/18 06/06/18 06/06/18 11:15 18:00 23:58 WBC RBC Hgb Hct MCV MCHC RDW Plt Count Lymph % (Auto) [place] % (Auto) Lymph # [place] # Seg Neutrophils % Seg Neuts % (Manual) Lymphocytes % (Manual) Monocytes % (Manual) Seg Neutrophils # Seg Neutrophils # Man Lymphocytes # (Manual) Monocytes # (Manual) PT INR APTT Heparin Anti-Xa Level POC ABG pH POC ABG pCO2 POC ABG pO2 Sodium Potassium Chloride Carbon Dioxide BUN Creatinine Glucose POC Glucose 127 H 130 H 114 H Lactic Acid Calcium Phosphorus Magnesium Iron TIBC AST ALT Alkaline Phosphatase Lactate Dehydrogenase Total Creatine Kinase C-Reactive Protein Total Protein Albumin Prealbumin CA 19-9 Antigen Folate PTH Intact Urine WBC (Auto) Urine Creatinine Urine Chloride Urine Total Protein Fluid Glucose Fluid Total Protein Vancomycin Trough Miscellaneous Test Crossmatch 06/07/18 06/07/18 06/07/18 05:45 05:45 05:54 WBC 15.5 H RBC 2.60 L Hgb 7.4 L Hct 23.1 L MCV MCHC RDW 16.5 H Plt Count 506 H Lymph % (Auto) 5.3 L [place] % (Auto) Lymph # 0.8 L [place] # 1.0 H Seg Neutrophils % 86.6 H Seg Neuts % (Manual) Lymphocytes % (Manual) Monocytes % (Manual) Seg Neutrophils # 13.4 H Seg Neutrophils # Man Lymphocytes # (Manual) Monocytes # (Manual) PT INR APTT Heparin Anti-Xa Level POC ABG pH POC ABG pCO2 POC ABG pO2 Sodium Potassium Chloride 108.4 H Carbon Dioxide BUN 84 H Creatinine 3.5 H Glucose 119 H POC Glucose 114 H Lactic Acid Calcium 8.1 L Phosphorus 5.10 H Magnesium Iron TIBC AST ALT Alkaline Phosphatase Lactate Dehydrogenase Total Creatine Kinase C-Reactive Protein Total Protein Albumin Prealbumin CA 19-9 Antigen Folate PTH Intact Urine WBC (Auto) Urine Creatinine Urine Chloride Urine Total Protein Fluid Glucose Fluid Total Protein Vancomycin Trough Miscellaneous Test Crossmatch 06/07/18 06/08/18 06/08/18 12:15 05:05 05:24 WBC RBC Hgb Hct MCV MCHC RDW Plt Count Lymph % (Auto) [place] % (Auto) Lymph # [place] # Seg Neutrophils % Seg Neuts % (Manual) Lymphocytes % (Manual) Monocytes % (Manual) Seg Neutrophils # Seg Neutrophils # Man Lymphocytes # (Manual) Monocytes # (Manual) PT INR APTT Heparin Anti-Xa Level POC ABG pH POC ABG pCO2 POC ABG pO2 Sodium 148 H Potassium Chloride 112.4 H Carbon Dioxide BUN 89 H Creatinine 3.4 H Glucose 120 H POC Glucose 148 H 115 H Lactic Acid Calcium 7.9 L Phosphorus Magnesium Iron TIBC AST ALT Alkaline Phosphatase Lactate Dehydrogenase Total Creatine Kinase C-Reactive Protein Total Protein Albumin Prealbumin CA 19-9 Antigen Folate PTH Intact Urine WBC (Auto) Urine Creatinine Urine Chloride Urine Total Protein Fluid Glucose Fluid Total Protein Vancomycin Trough Miscellaneous Test Crossmatch 06/08/18 06/08/18 06/08/18 21:36 21:43 21:43 WBC RBC 2.98 L Hgb 8.8 L Hct 26.6 L MCV MCHC RDW 16.7 H Plt Count 463 H Lymph % (Auto) 7.9 L [place] % (Auto) Lymph # 0.8 L [place] # Seg Neutrophils % 84.8 H Seg Neuts % (Manual) Lymphocytes % (Manual) Monocytes % (Manual) Seg Neutrophils # 8.6 H Seg Neutrophils # Man Lymphocytes # (Manual) Monocytes # (Manual) PT INR APTT Heparin Anti-Xa Level POC ABG pH POC ABG pCO2 POC ABG pO2 Sodium Potassium Chloride Carbon Dioxide BUN Creatinine Glucose POC Glucose Lactic Acid Calcium Phosphorus Magnesium Iron TIBC AST ALT Alkaline Phosphatase Lactate Dehydrogenase 297 H Total Creatine Kinase C-Reactive Protein Total Protein Albumin Prealbumin CA 19-9 Antigen 57 H Folate PTH Intact Urine WBC (Auto) Urine Creatinine Urine Chloride Urine Total Protein Fluid Glucose Fluid Total Protein Vancomycin Trough Miscellaneous Test Crossmatch 06/09/18 06/09/18 06/09/18 00:05 05:34 05:50 WBC RBC Hgb Hct MCV MCHC RDW Plt Count Lymph % (Auto) [place] % (Auto) Lymph # [place] # Seg Neutrophils % Seg Neuts % (Manual) Lymphocytes % (Manual) Monocytes % (Manual) Seg Neutrophils # Seg Neutrophils # Man Lymphocytes # (Manual) Monocytes # (Manual) PT INR APTT Heparin Anti-Xa Level POC ABG pH POC ABG pCO2 POC ABG pO2 Sodium 153 H Potassium Chloride 117.3 H Carbon Dioxide BUN 84 H Creatinine 3.2 H Glucose 117 H POC Glucose 140 H 146 H Lactic Acid Calcium 7.9 L Phosphorus Magnesium Iron TIBC AST ALT Alkaline Phosphatase Lactate Dehydrogenase Total Creatine Kinase C-Reactive Protein Total Protein Albumin Prealbumin CA 19-9 Antigen Folate PTH Intact Urine WBC (Auto) Urine Creatinine Urine Chloride Urine Total Protein Fluid Glucose Fluid Total Protein Vancomycin Trough Miscellaneous Test Crossmatch 06/09/18 06/09/18 06/09/18 05:50 07:37 10:34 WBC RBC 2.32 L Hgb 6.8 L Hct 20.7 L MCV MCHC RDW 16.7 H Plt Count Lymph % (Auto) [place] % (Auto) Lymph # [place] # Seg Neutrophils % Seg Neuts % (Manual) Lymphocytes % (Manual) Monocytes % (Manual) Seg Neutrophils # Seg Neutrophils # Man Lymphocytes # (Manual) Monocytes # (Manual) PT INR APTT Heparin Anti-Xa Level POC ABG pH POC ABG pCO2 POC ABG pO2 Sodium 149 H Potassium Chloride 114.6 H Carbon Dioxide BUN 84 H Creatinine 3.1 H Glucose 137 H POC Glucose Lactic Acid Calcium 7.7 L Phosphorus Magnesium Iron TIBC AST ALT Alkaline Phosphatase Lactate Dehydrogenase Total Creatine Kinase C-Reactive Protein Total Protein Albumin Prealbumin CA 19-9 Antigen Folate PTH Intact Urine WBC (Auto) Urine Creatinine Urine Chloride Urine Total Protein Fluid Glucose Fluid Total Protein Vancomycin Trough Miscellaneous Test Flexitest 1 H Crossmatch 06/09/18 06/09/18 06/09/18 10:41 11:56 13:24 WBC RBC 2.43 L Hgb 7.2 L Hct 21.6 L MCV MCHC RDW 16.8 H Plt Count Lymph % (Auto) [place] % (Auto) Lymph # [place] # Seg Neutrophils % Seg Neuts % (Manual) Lymphocytes % (Manual) Monocytes % (Manual) Seg Neutrophils # Seg Neutrophils # Man Lymphocytes # (Manual) Monocytes # (Manual) PT INR APTT Heparin Anti-Xa Level POC ABG pH POC ABG pCO2 POC ABG pO2 Sodium Potassium Chloride Carbon Dioxide BUN Creatinine Glucose POC Glucose 141 H Lactic Acid Calcium Phosphorus Magnesium Iron TIBC AST ALT Alkaline Phosphatase Lactate Dehydrogenase Total Creatine Kinase C-Reactive Protein Total Protein Albumin Prealbumin CA 19-9 Antigen Folate PTH Intact Urine WBC (Auto) Urine Creatinine Urine Chloride Urine Total Protein Fluid Glucose Fluid Total Protein Vancomycin Trough Miscellaneous Test Crossmatch See Detail 06/09/18 06/09/18 06/10/18 18:18 23:13 05:26 WBC RBC Hgb Hct MCV MCHC RDW Plt Count Lymph % (Auto) [place] % (Auto) Lymph # [place] # Seg Neutrophils % Seg Neuts % (Manual) Lymphocytes % (Manual) Monocytes % (Manual) Seg Neutrophils # Seg Neutrophils # Man Lymphocytes # (Manual) Monocytes # (Manual) PT INR APTT Heparin Anti-Xa Level POC ABG pH POC ABG pCO2 POC ABG pO2 Sodium 148 H Potassium Chloride 114.7 H Carbon Dioxide 21 L BUN 79 H Creatinine 3.2 H Glucose 121 H POC Glucose 156 H 163 H Lactic Acid Calcium 7.8 L Phosphorus Magnesium 1.60 L Iron TIBC AST ALT Alkaline Phosphatase Lactate Dehydrogenase Total Creatine Kinase C-Reactive Protein Total Protein Albumin Prealbumin CA 19-9 Antigen Folate PTH Intact Urine WBC (Auto) Urine Creatinine Urine Chloride Urine Total Protein Fluid Glucose Fluid Total Protein Vancomycin Trough Miscellaneous Test Crossmatch 06/10/18 06/10/18 06/10/18 05:26 05:31 17:15 WBC 11.1 H RBC 3.07 L Hgb 9.1 L Hct 27.6 L D MCV MCHC RDW 17.4 H Plt Count Lymph % (Auto) [place] % (Auto) Lymph # [place] # Seg Neutrophils % Seg Neuts % (Manual) Lymphocytes % (Manual) Monocytes % (Manual) Seg Neutrophils # Seg Neutrophils # Man Lymphocytes # (Manual) Monocytes # (Manual) PT INR APTT Heparin Anti-Xa Level POC ABG pH POC ABG pCO2 POC ABG pO2 Sodium Potassium Chloride Carbon Dioxide BUN Creatinine Glucose POC Glucose 128 H Lactic Acid Calcium Phosphorus Magnesium Iron TIBC AST ALT Alkaline Phosphatase Lactate Dehydrogenase Total Creatine Kinase C-Reactive Protein 3.60 H Total Protein Albumin Prealbumin CA 19-9 Antigen Folate PTH Intact Urine WBC (Auto) Urine Creatinine Urine Chloride Urine Total Protein Fluid Glucose Fluid Total Protein Vancomycin Trough Miscellaneous Test Crossmatch 06/11/18 06/11/18 06/11/18 01:13 05:41 05:41 WBC 14.6 H RBC 3.40 L Hgb 9.8 L Hct 30.7 L MCV MCHC RDW 18.1 H Plt Count Lymph % (Auto) [place] % (Auto) Lymph # [place] # Seg Neutrophils % Seg Neuts % (Manual) Lymphocytes % (Manual) Monocytes % (Manual) Seg Neutrophils # Seg Neutrophils # Man Lymphocytes # (Manual) Monocytes # (Manual) PT INR APTT Heparin Anti-Xa Level POC ABG pH POC ABG pCO2 POC ABG pO2 Sodium Potassium Chloride 110.8 H Carbon Dioxide 18 L BUN 77 H Creatinine 3.0 H Glucose 116 H POC Glucose 126 H Lactic Acid Calcium 7.9 L Phosphorus Magnesium Iron TIBC AST ALT Alkaline Phosphatase Lactate Dehydrogenase Total Creatine Kinase C-Reactive Protein Total Protein Albumin Prealbumin CA 19-9 Antigen Folate PTH Intact Urine WBC (Auto) Urine Creatinine Urine Chloride Urine Total Protein Fluid Glucose Fluid Total Protein Vancomycin Trough Miscellaneous Test Crossmatch 06/11/18 06/11/18 06/11/18 06:20 07:41 07:41 WBC RBC Hgb Hct MCV MCHC RDW Plt Count Lymph % (Auto) [place] % (Auto) Lymph # [place] # Seg Neutrophils % Seg Neuts % (Manual) Lymphocytes % (Manual) Monocytes % (Manual) Seg Neutrophils # Seg Neutrophils # Man Lymphocytes # (Manual) Monocytes # (Manual) PT INR APTT Heparin Anti-Xa Level POC ABG pH POC ABG pCO2 POC ABG pO2 Sodium Potassium Chloride Carbon Dioxide BUN Creatinine Glucose POC Glucose 136 H Lactic Acid Calcium Phosphorus Magnesium Iron TIBC AST ALT Alkaline Phosphatase Lactate Dehydrogenase Total Creatine Kinase C-Reactive Protein Total Protein Albumin Prealbumin CA 19-9 Antigen Folate PTH Intact Urine WBC (Auto) 10.0 H Urine Creatinine 41.2 H Urine Chloride 49.2 L Urine Total Protein 142 H Fluid Glucose Fluid Total Protein Vancomycin Trough Miscellaneous Test Crossmatch 06/11/18 06/12/18 06/12/18 18:35 00:34 04:12 WBC RBC 3.18 L Hgb 9.5 L Hct 28.7 L MCV MCHC RDW 18.5 H Plt Count Lymph % (Auto) 8.1 L [place] % (Auto) Lymph # 0.9 L [place] # Seg Neutrophils % 84.6 H Seg Neuts % (Manual) Lymphocytes % (Manual) Monocytes % (Manual) Seg Neutrophils # 9.1 H Seg Neutrophils # Man Lymphocytes # (Manual) Monocytes # (Manual) PT INR APTT Heparin Anti-Xa Level POC ABG pH POC ABG pCO2 POC ABG pO2 Sodium Potassium Chloride Carbon Dioxide BUN Creatinine Glucose POC Glucose 125 H 129 H Lactic Acid Calcium Phosphorus Magnesium Iron TIBC AST ALT Alkaline Phosphatase Lactate Dehydrogenase Total Creatine Kinase C-Reactive Protein Total Protein Albumin Prealbumin CA 19-9 Antigen Folate PTH Intact Urine WBC (Auto) Urine Creatinine Urine Chloride Urine Total Protein Fluid Glucose Fluid Total Protein Vancomycin Trough Miscellaneous Test Crossmatch 06/12/18 06/12/18 06/12/18 04:12 06:30 11:43 WBC RBC Hgb Hct MCV MCHC RDW Plt Count Lymph % (Auto) [place] % (Auto) Lymph # [place] # Seg Neutrophils % Seg Neuts % (Manual) Lymphocytes % (Manual) Monocytes % (Manual) Seg Neutrophils # Seg Neutrophils # Man Lymphocytes # (Manual) Monocytes # (Manual) PT INR APTT Heparin Anti-Xa Level POC ABG pH POC ABG pCO2 POC ABG pO2 Sodium Potassium Chloride 108.5 H Carbon Dioxide 21 L BUN 72 H Creatinine 3.0 H Glucose 122 H POC Glucose 129 H 126 H Lactic Acid Calcium 7.8 L Phosphorus Magnesium Iron TIBC AST 45 H ALT Alkaline Phosphatase 200 H Lactate Dehydrogenase Total Creatine Kinase 34 L C-Reactive Protein Total Protein Albumin 1.7 L Prealbumin CA 19-9 Antigen Folate PTH Intact Urine WBC (Auto) Urine Creatinine Urine Chloride Urine Total Protein Fluid Glucose Fluid Total Protein Vancomycin Trough Miscellaneous Test Crossmatch 06/12/18 06/12/18 06/13/18 16:00 23:56 03:44 WBC RBC Hgb Hct MCV MCHC RDW Plt Count Lymph % (Auto) [place] % (Auto) Lymph # [place] # Seg Neutrophils % Seg Neuts % (Manual) Lymphocytes % (Manual) Monocytes % (Manual) Seg Neutrophils # Seg Neutrophils # Man Lymphocytes # (Manual) Monocytes # (Manual) PT INR APTT Heparin Anti-Xa Level POC ABG pH POC ABG pCO2 POC ABG pO2 Sodium Potassium Chloride Carbon Dioxide BUN Creatinine Glucose POC Glucose 123 H 128 H 121 H Lactic Acid Calcium Phosphorus Magnesium Iron TIBC AST ALT Alkaline Phosphatase Lactate Dehydrogenase Total Creatine Kinase C-Reactive Protein Total Protein Albumin Prealbumin CA 19-9 Antigen Folate PTH Intact Urine WBC (Auto) Urine Creatinine Urine Chloride Urine Total Protein Fluid Glucose Fluid Total Protein Vancomycin Trough Miscellaneous Test Crossmatch 06/13/18 06/13/18 06/14/18 05:59 11:29 01:08 WBC RBC Hgb Hct MCV MCHC RDW Plt Count Lymph % (Auto) [place] % (Auto) Lymph # [place] # Seg Neutrophils % Seg Neuts % (Manual) Lymphocytes % (Manual) Monocytes % (Manual) Seg Neutrophils # Seg Neutrophils # Man Lymphocytes # (Manual) Monocytes # (Manual) PT INR APTT Heparin Anti-Xa Level POC ABG pH POC ABG pCO2 POC ABG pO2 Sodium 134 L Potassium Chloride Carbon Dioxide 20 L BUN 69 H Creatinine 2.9 H Glucose 113 H POC Glucose 124 H 128 H Lactic Acid Calcium 7.8 L Phosphorus Magnesium Iron TIBC AST ALT Alkaline Phosphatase Lactate Dehydrogenase Total Creatine Kinase C-Reactive Protein Total Protein Albumin Prealbumin CA 19-9 Antigen Folate PTH Intact Urine WBC (Auto) Urine Creatinine Urine Chloride Urine Total Protein Fluid Glucose Fluid Total Protein Vancomycin Trough Miscellaneous Test Crossmatch 06/14/18 06/14/18 06/14/18 06:42 06:42 09:50 WBC 11.3 H RBC 3.02 L Hgb 8.8 L Hct 27.3 L MCV MCHC RDW 18.6 H Plt Count Lymph % (Auto) [place] % (Auto) Lymph # [place] # Seg Neutrophils % Seg Neuts % (Manual) Lymphocytes % (Manual) Monocytes % (Manual) Seg Neutrophils # Seg Neutrophils # Man Lymphocytes # (Manual) Monocytes # (Manual) PT 16.3 H INR 1.24 H APTT Heparin Anti-Xa Level POC ABG pH POC ABG pCO2 POC ABG pO2 Sodium 132 L Potassium Chloride Carbon Dioxide 19 L BUN 71 H Creatinine 3.1 H Glucose POC Glucose Lactic Acid Calcium 7.8 L Phosphorus Magnesium Iron TIBC AST ALT Alkaline Phosphatase Lactate Dehydrogenase Total Creatine Kinase C-Reactive Protein Total Protein Albumin Prealbumin CA 19-9 Antigen Folate PTH Intact Urine WBC (Auto) Urine Creatinine Urine Chloride Urine Total Protein Fluid Glucose Fluid Total Protein Vancomycin Trough Miscellaneous Test Crossmatch 06/14/18 06/14/18 06/15/18 12:31 17:04 01:18 WBC RBC Hgb Hct MCV MCHC RDW Plt Count Lymph % (Auto) [place] % (Auto) Lymph # [place] # Seg Neutrophils % Seg Neuts % (Manual) Lymphocytes % (Manual) Monocytes % (Manual) Seg Neutrophils # Seg Neutrophils # Man Lymphocytes # (Manual) Monocytes # (Manual) PT INR APTT Heparin Anti-Xa Level POC ABG pH POC ABG pCO2 POC ABG pO2 Sodium Potassium Chloride Carbon Dioxide BUN Creatinine Glucose POC Glucose 125 H 109 H 124 H Lactic Acid Calcium Phosphorus Magnesium Iron TIBC AST ALT Alkaline Phosphatase Lactate Dehydrogenase Total Creatine Kinase C-Reactive Protein Total Protein Albumin Prealbumin CA 19-9 Antigen Folate PTH Intact Urine WBC (Auto) Urine Creatinine Urine Chloride Urine Total Protein Fluid Glucose Fluid Total Protein Vancomycin Trough Miscellaneous Test Crossmatch 06/15/18 06/15/18 06/15/18 05:27 06:34 11:42 WBC RBC Hgb Hct MCV MCHC RDW Plt Count Lymph % (Auto) [place] % (Auto) Lymph # [place] # Seg Neutrophils % Seg Neuts % (Manual) Lymphocytes % (Manual) Monocytes % (Manual) Seg Neutrophils # Seg Neutrophils # Man Lymphocytes # (Manual) Monocytes # (Manual) PT INR APTT Heparin Anti-Xa Level POC ABG pH POC ABG pCO2 POC ABG pO2 Sodium 134 L Potassium Chloride Carbon Dioxide 17 L BUN 77 H Creatinine 3.2 H Glucose 110 H POC Glucose 116 H 131 H Lactic Acid Calcium 8.1 L Phosphorus 6.20 H D Magnesium Iron TIBC AST ALT Alkaline Phosphatase Lactate Dehydrogenase Total Creatine Kinase C-Reactive Protein Total Protein Albumin Prealbumin CA 19-9 Antigen Folate PTH Intact Urine WBC (Auto) Urine Creatinine Urine Chloride Urine Total Protein Fluid Glucose Fluid Total Protein Vancomycin Trough Miscellaneous Test Crossmatch 06/16/18 06/16/18 06/16/18 00:57 05:10 06:07 WBC RBC Hgb Hct MCV MCHC RDW Plt Count Lymph % (Auto) [place] % (Auto) Lymph # [place] # Seg Neutrophils % Seg Neuts % (Manual) Lymphocytes % (Manual) Monocytes % (Manual) Seg Neutrophils # Seg Neutrophils # Man Lymphocytes # (Manual) Monocytes # (Manual) PT INR APTT Heparin Anti-Xa Level POC ABG pH POC ABG pCO2 POC ABG pO2 Sodium 132 L Potassium Chloride Carbon Dioxide 19 L BUN 83 H Creatinine 3.2 H Glucose 113 H POC Glucose 137 H 109 H Lactic Acid Calcium 7.8 L Phosphorus 6.10 H Magnesium Iron TIBC AST ALT Alkaline Phosphatase Lactate Dehydrogenase Total Creatine Kinase C-Reactive Protein Total Protein Albumin Prealbumin CA 19-9 Antigen Folate PTH Intact Urine WBC (Auto) Urine Creatinine Urine Chloride Urine Total Protein Fluid Glucose Fluid Total Protein Vancomycin Trough Miscellaneous Test Crossmatch 06/16/18 06/16/18 06/17/18 11:51 15:46 00:02 WBC RBC Hgb Hct MCV MCHC RDW Plt Count Lymph % (Auto) [place] % (Auto) Lymph # [place] # Seg Neutrophils % Seg Neuts % (Manual) Lymphocytes % (Manual) Monocytes % (Manual) Seg Neutrophils # Seg Neutrophils # Man Lymphocytes # (Manual) Monocytes # (Manual) PT INR APTT Heparin Anti-Xa Level POC ABG pH POC ABG pCO2 POC ABG pO2 Sodium Potassium Chloride Carbon Dioxide BUN Creatinine Glucose POC Glucose 126 H 127 H 107 H Lactic Acid Calcium Phosphorus Magnesium Iron TIBC AST ALT Alkaline Phosphatase Lactate Dehydrogenase Total Creatine Kinase C-Reactive Protein Total Protein Albumin Prealbumin CA 19-9 Antigen Folate PTH Intact Urine WBC (Auto) Urine Creatinine Urine Chloride Urine Total Protein Fluid Glucose Fluid Total Protein Vancomycin Trough Miscellaneous Test Crossmatch 06/17/18 06/17/18 06/17/18 05:52 11:46 16:58 WBC RBC Hgb Hct MCV MCHC RDW Plt Count Lymph % (Auto) [place] % (Auto) Lymph # [place] # Seg Neutrophils % Seg Neuts % (Manual) Lymphocytes % (Manual) Monocytes % (Manual) Seg Neutrophils # Seg Neutrophils # Man Lymphocytes # (Manual) Monocytes # (Manual) PT INR APTT Heparin Anti-Xa Level POC ABG pH POC ABG pCO2 POC ABG pO2 Sodium 133 L Potassium Chloride Carbon Dioxide 17 L BUN 87 H Creatinine 3.2 H Glucose POC Glucose 129 H 140 H Lactic Acid Calcium 8.1 L Phosphorus 6.50 H Magnesium Iron TIBC AST ALT Alkaline Phosphatase Lactate Dehydrogenase Total Creatine Kinase C-Reactive Protein Total Protein Albumin Prealbumin 0.130 L CA 19-9 Antigen Folate PTH Intact Urine WBC (Auto) Urine Creatinine Urine Chloride Urine Total Protein Fluid Glucose Fluid Total Protein Vancomycin Trough Miscellaneous Test Crossmatch 06/18/18 06/18/18 06/18/18 04:04 04:04 14:15 WBC RBC 3.00 L Hgb 8.9 L Hct 26.5 L MCV MCHC RDW 17.8 H Plt Count 494 H Lymph % (Auto) 7.9 L [place] % (Auto) 9.3 H Lymph # 0.8 L [place] # 1.0 H Seg Neutrophils % 81.2 H Seg Neuts % (Manual) Lymphocytes % (Manual) Monocytes % (Manual) Seg Neutrophils # 8.6 H Seg Neutrophils # Man Lymphocytes # (Manual) Monocytes # (Manual) PT INR APTT Heparin Anti-Xa Level POC ABG pH POC ABG pCO2 POC ABG pO2 Sodium 128 L Potassium Chloride Carbon Dioxide 18 L BUN 88 H Creatinine 3.1 H Glucose 129 H POC Glucose 143 H Lactic Acid Calcium 7.8 L Phosphorus 6.20 H Magnesium Iron TIBC AST ALT Alkaline Phosphatase Lactate Dehydrogenase Total Creatine Kinase C-Reactive Protein Total Protein Albumin Prealbumin CA 19-9 Antigen Folate PTH Intact Urine WBC (Auto) Urine Creatinine Urine Chloride Urine Total Protein Fluid Glucose Fluid Total Protein Vancomycin Trough Miscellaneous Test Crossmatch 06/18/18 06/19/18 06/19/18 17:54 01:45 06:20 WBC RBC Hgb Hct MCV MCHC RDW Plt Count Lymph % (Auto) [place] % (Auto) Lymph # [place] # Seg Neutrophils % Seg Neuts % (Manual) Lymphocytes % (Manual) Monocytes % (Manual) Seg Neutrophils # Seg Neutrophils # Man Lymphocytes # (Manual) Monocytes # (Manual) PT INR APTT Heparin Anti-Xa Level POC ABG pH POC ABG pCO2 POC ABG pO2 Sodium Potassium Chloride 93.9 L Carbon Dioxide BUN 78 H Creatinine 2.8 H Glucose POC Glucose 138 H 141 H Lactic Acid Calcium 7.1 L Phosphorus 6.40 H Magnesium Iron TIBC AST ALT Alkaline Phosphatase Lactate Dehydrogenase Total Creatine Kinase C-Reactive Protein Total Protein Albumin Prealbumin CA 19-9 Antigen Folate PTH Intact Urine WBC (Auto) Urine Creatinine Urine Chloride Urine Total Protein Fluid Glucose Fluid Total Protein Vancomycin Trough Miscellaneous Test Crossmatch 06/19/18 06/19/18 06/19/18 06:49 07:59 16:32 WBC RBC Hgb Hct MCV MCHC RDW Plt Count Lymph % (Auto) [place] % (Auto) Lymph # [place] # Seg Neutrophils % Seg Neuts % (Manual) Lymphocytes % (Manual) Monocytes % (Manual) Seg Neutrophils # Seg Neutrophils # Man Lymphocytes # (Manual) Monocytes # (Manual) PT INR APTT Heparin Anti-Xa Level POC ABG pH POC ABG pCO2 POC ABG pO2 Sodium Potassium Chloride Carbon Dioxide BUN 80 H Creatinine 2.9 H Glucose 123 H POC Glucose 130 H 134 H Lactic Acid Calcium 7.7 L Phosphorus Magnesium Iron TIBC AST ALT Alkaline Phosphatase Lactate Dehydrogenase Total Creatine Kinase C-Reactive Protein Total Protein Albumin Prealbumin CA 19-9 Antigen Folate PTH Intact Urine WBC (Auto) Urine Creatinine Urine Chloride Urine Total Protein Fluid Glucose Fluid Total Protein Vancomycin Trough Miscellaneous Test Crossmatch 06/20/18 06/20/18 06/20/18 00:11 05:55 05:55 WBC RBC 2.73 L Hgb 8.0 L Hct 24.2 L MCV MCHC RDW 17.4 H Plt Count 512 H Lymph % (Auto) 12.3 L [place] % (Auto) 11.3 H Lymph # 1.1 L [place] # 1.0 H Seg Neutrophils % 74.8 H Seg Neuts % (Manual) Lymphocytes % (Manual) Monocytes % (Manual) Seg Neutrophils # Seg Neutrophils # Man Lymphocytes # (Manual) Monocytes # (Manual) PT INR APTT Heparin Anti-Xa Level POC ABG pH POC ABG pCO2 POC ABG pO2 Sodium Potassium Chloride Carbon Dioxide 32 H BUN 70 H Creatinine 2.5 H Glucose 105 H POC Glucose 131 H Lactic Acid Calcium 8.0 L Phosphorus Magnesium Iron TIBC AST ALT Alkaline Phosphatase Lactate Dehydrogenase Total Creatine Kinase C-Reactive Protein Total Protein Albumin Prealbumin CA 19-9 Antigen Folate PTH Intact Urine WBC (Auto) Urine Creatinine Urine Chloride Urine Total Protein Fluid Glucose Fluid Total Protein Vancomycin Trough Miscellaneous Test Crossmatch 06/20/18 06/20/18 06/20/18 05:55 12:10 16:01 WBC RBC Hgb Hct MCV MCHC RDW Plt Count Lymph % (Auto) [place] % (Auto) Lymph # [place] # Seg Neutrophils % Seg Neuts % (Manual) Lymphocytes % (Manual) Monocytes % (Manual) Seg Neutrophils # Seg Neutrophils # Man Lymphocytes # (Manual) Monocytes # (Manual) PT INR APTT Heparin Anti-Xa Level POC ABG pH POC ABG pCO2 POC ABG pO2 Sodium Potassium Chloride Carbon Dioxide BUN Creatinine Glucose POC Glucose 112 H 127 H 145 H Lactic Acid Calcium Phosphorus Magnesium Iron TIBC AST ALT Alkaline Phosphatase Lactate Dehydrogenase Total Creatine Kinase C-Reactive Protein Total Protein Albumin Prealbumin CA 19-9 Antigen Folate PTH Intact Urine WBC (Auto) Urine Creatinine Urine Chloride Urine Total Protein Fluid Glucose Fluid Total Protein Vancomycin Trough Miscellaneous Test Crossmatch 06/20/18 06/21/18 06/21/18 23:54 05:50 05:50 WBC RBC 2.57 L Hgb 7.7 L Hct 26.6 L MCV 104 H MCHC 29 L RDW 19.1 H Plt Count 521 H Lymph % (Auto) 10.0 L [place] % (Auto) 7.4 H Lymph # 1.0 L [place] # Seg Neutrophils % 81.3 H Seg Neuts % (Manual) Lymphocytes % (Manual) Monocytes % (Manual) Seg Neutrophils # 7.9 H Seg Neutrophils # Man Lymphocytes # (Manual) Monocytes # (Manual) PT INR APTT Heparin Anti-Xa Level POC ABG pH POC ABG pCO2 POC ABG pO2 Sodium Potassium 5.8 H D Chloride 90.3 L Carbon Dioxide 37 H BUN 57 H Creatinine 1.9 H Glucose POC Glucose 154 H Lactic Acid Calcium 7.3 L Phosphorus Magnesium Iron TIBC AST 50 H ALT Alkaline Phosphatase 190 H Lactate Dehydrogenase Total Creatine Kinase C-Reactive Protein Total Protein Albumin 1.8 L Prealbumin CA 19-9 Antigen Folate PTH Intact Urine WBC (Auto) Urine Creatinine Urine Chloride Urine Total Protein Fluid Glucose Fluid Total Protein Vancomycin Trough Miscellaneous Test Crossmatch 06/21/18 06/21/18 06/21/18 06:57 13:37 17:00 WBC RBC Hgb Hct MCV MCHC RDW Plt Count Lymph % (Auto) [place] % (Auto) Lymph # [place] # Seg Neutrophils % Seg Neuts % (Manual) Lymphocytes % (Manual) Monocytes % (Manual) Seg Neutrophils # Seg Neutrophils # Man Lymphocytes # (Manual) Monocytes # (Manual) PT INR APTT Heparin Anti-Xa Level POC ABG pH POC ABG pCO2 POC ABG pO2 Sodium Potassium Chloride Carbon Dioxide BUN Creatinine Glucose 111 H POC Glucose 141 H 148 H Lactic Acid Calcium Phosphorus Magnesium Iron TIBC AST ALT Alkaline Phosphatase Lactate Dehydrogenase Total Creatine Kinase C-Reactive Protein Total Protein Albumin Prealbumin CA 19-9 Antigen Folate PTH Intact Urine WBC (Auto) Urine Creatinine Urine Chloride Urine Total Protein Fluid Glucose Fluid Total Protein Vancomycin Trough Miscellaneous Test Crossmatch 06/21/18 06/21/18 06/22/18 17:27 22:01 06:02 WBC RBC Hgb Hct MCV MCHC RDW Plt Count Lymph % (Auto) [place] % (Auto) Lymph # [place] # Seg Neutrophils % Seg Neuts % (Manual) Lymphocytes % (Manual) Monocytes % (Manual) Seg Neutrophils # Seg Neutrophils # Man Lymphocytes # (Manual) Monocytes # (Manual) PT INR APTT Heparin Anti-Xa Level POC ABG pH POC ABG pCO2 POC ABG pO2 Sodium Potassium 3.2 L Chloride Carbon Dioxide 39 H BUN 53 H Creatinine 1.9 H Glucose 1348 H* POC Glucose 130 H 122 H Lactic Acid Calcium 7.5 L Phosphorus Magnesium Iron TIBC AST ALT Alkaline Phosphatase Lactate Dehydrogenase Total Creatine Kinase C-Reactive Protein Total Protein Albumin Prealbumin CA 19-9 Antigen Folate PTH Intact Urine WBC (Auto) Urine Creatinine Urine Chloride Urine Total Protein Fluid Glucose Fluid Total Protein Vancomycin Trough Miscellaneous Test Crossmatch 06/22/18 06/22/18 06/22/18 06:16 07:26 07:48 WBC RBC Hgb Hct MCV MCHC RDW Plt Count Lymph % (Auto) [place] % (Auto) Lymph # [place] # Seg Neutrophils % Seg Neuts % (Manual) Lymphocytes % (Manual) Monocytes % (Manual) Seg Neutrophils # Seg Neutrophils # Man Lymphocytes # (Manual) Monocytes # (Manual) PT INR APTT Heparin Anti-Xa Level POC ABG pH POC ABG pCO2 POC ABG pO2 Sodium Potassium Chloride Carbon Dioxide 37 H BUN 57 H Creatinine 1.9 H Glucose 147 H POC Glucose 148 H 153 H Lactic Acid Calcium 8.3 L Phosphorus Magnesium Iron TIBC AST ALT Alkaline Phosphatase Lactate Dehydrogenase Total Creatine Kinase C-Reactive Protein Total Protein Albumin Prealbumin CA 19-9 Antigen Folate PTH Intact Urine WBC (Auto) Urine Creatinine Urine Chloride Urine Total Protein Fluid Glucose Fluid Total Protein Vancomycin Trough Miscellaneous Test Crossmatch 06/22/18 06/22/18 06/22/18 11:26 16:26 23:57 WBC RBC Hgb Hct MCV MCHC RDW Plt Count Lymph % (Auto) [place] % (Auto) Lymph # [place] # Seg Neutrophils % Seg Neuts % (Manual) Lymphocytes % (Manual) Monocytes % (Manual) Seg Neutrophils # Seg Neutrophils # Man Lymphocytes # (Manual) Monocytes # (Manual) PT INR APTT Heparin Anti-Xa Level POC ABG pH POC ABG pCO2 POC ABG pO2 Sodium Potassium Chloride Carbon Dioxide BUN Creatinine Glucose POC Glucose 121 H 122 H 180 H Lactic Acid Calcium Phosphorus Magnesium Iron TIBC AST ALT Alkaline Phosphatase Lactate Dehydrogenase Total Creatine Kinase C-Reactive Protein Total Protein Albumin Prealbumin CA 19-9 Antigen Folate PTH Intact Urine WBC (Auto) Urine Creatinine Urine Chloride Urine Total Protein Fluid Glucose Fluid Total Protein Vancomycin Trough Miscellaneous Test Crossmatch 06/22/18 06/23/18 06/23/18 23:57 00:30 01:40 WBC RBC Hgb Hct MCV MCHC RDW Plt Count Lymph % (Auto) [place] % (Auto) Lymph # [place] # Seg Neutrophils % Seg Neuts % (Manual) Lymphocytes % (Manual) Monocytes % (Manual) Seg Neutrophils # Seg Neutrophils # Man Lymphocytes # (Manual) Monocytes # (Manual) PT INR APTT Heparin Anti-Xa Level POC ABG pH 7.195 L 7.235 L POC ABG pCO2 105.2 H 95.7 H POC ABG pO2 Sodium Potassium Chloride Carbon Dioxide BUN Creatinine Glucose POC Glucose Lactic Acid Calcium Phosphorus Magnesium Iron TIBC AST ALT Alkaline Phosphatase Lactate Dehydrogenase Total Creatine Kinase C-Reactive Protein Total Protein Albumin Prealbumin CA 19-9 Antigen Folate PTH Intact Urine WBC (Auto) Urine Creatinine 99.7 H Urine Chloride 10.0 L Urine Total Protein 272 H Fluid Glucose Fluid Total Protein Vancomycin Trough Miscellaneous Test Crossmatch 06/23/18 06/23/18 06/23/18 05:58 07:20 08:31 WBC 16.0 H RBC 2.35 L Hgb 6.7 L Hct 22.3 L MCV 95 H MCHC 30 L RDW 18.5 H Plt Count 512 H Lymph % (Auto) [place] % (Auto) Lymph # [place] # Seg Neutrophils % Seg Neuts % (Manual) Lymphocytes % (Manual) Monocytes % (Manual) Seg Neutrophils # Seg Neutrophils # Man Lymphocytes # (Manual) Monocytes # (Manual) PT INR APTT Heparin Anti-Xa Level POC ABG pH POC ABG pCO2 POC ABG pO2 Sodium Potassium Chloride Carbon Dioxide BUN Creatinine Glucose POC Glucose 116 H 123 H Lactic Acid Calcium Phosphorus Magnesium Iron TIBC AST ALT Alkaline Phosphatase Lactate Dehydrogenase Total Creatine Kinase C-Reactive Protein Total Protein Albumin Prealbumin CA 19-9 Antigen Folate PTH Intact Urine WBC (Auto) Urine Creatinine Urine Chloride Urine Total Protein Fluid Glucose Fluid Total Protein Vancomycin Trough Miscellaneous Test Crossmatch 06/23/18 06/23/18 06/23/18 08:31 08:34 08:34 WBC RBC Hgb Hct MCV MCHC RDW Plt Count 485 H Lymph % (Auto) [place] % (Auto) Lymph # [place] # Seg Neutrophils % Seg Neuts % (Manual) Lymphocytes % (Manual) Monocytes % (Manual) Seg Neutrophils # Seg Neutrophils # Man Lymphocytes # (Manual) Monocytes # (Manual) PT 15.2 H INR 1.15 H APTT 41.9 H Heparin Anti-Xa Level POC ABG pH POC ABG pCO2 POC ABG pO2 Sodium 148 H Potassium Chloride Carbon Dioxide BUN 59 H Creatinine 2.2 H Glucose 106 H POC Glucose Lactic Acid Calcium 8.2 L Phosphorus 6.60 H Magnesium Iron TIBC AST 46 H ALT Alkaline Phosphatase 188 H Lactate Dehydrogenase Total Creatine Kinase C-Reactive Protein Total Protein Albumin 1.6 L Prealbumin CA 19-9 Antigen Folate PTH Intact Urine WBC (Auto) Urine Creatinine Urine Chloride Urine Total Protein Fluid Glucose Fluid Total Protein Vancomycin Trough Miscellaneous Test Crossmatch 06/23/18 06/23/18 06/23/18 09:29 09:40 09:43 WBC RBC Hgb Hct MCV MCHC RDW Plt Count Lymph % (Auto) [place] % (Auto) Lymph # [place] # Seg Neutrophils % Seg Neuts % (Manual) Lymphocytes % (Manual) Monocytes % (Manual) Seg Neutrophils # Seg Neutrophils # Man Lymphocytes # (Manual) Monocytes # (Manual) PT INR APTT Heparin Anti-Xa Level POC ABG pH 7.521 H POC ABG pCO2 53.6 H 48.4 H POC ABG pO2 37 L 181 H Sodium Potassium Chloride Carbon Dioxide BUN Creatinine Glucose POC Glucose Lactic Acid Calcium Phosphorus Magnesium Iron TIBC AST ALT Alkaline Phosphatase Lactate Dehydrogenase Total Creatine Kinase C-Reactive Protein Total Protein Albumin Prealbumin CA 19-9 Antigen Folate PTH Intact Urine WBC (Auto) Urine Creatinine Urine Chloride Urine Total Protein Fluid Glucose Fluid Total Protein Vancomycin Trough Miscellaneous Test Crossmatch See Detail 06/23/18 06/23/18 06/23/18 17:03 17:03 18:33 WBC 22.2 H RBC 2.85 L Hgb 8.4 L Hct 25.6 L MCV MCHC RDW 17.6 H Plt Count 515 H Lymph % (Auto) [place] % (Auto) Lymph # [place] # Seg Neutrophils % Seg Neuts % (Manual) Lymphocytes % (Manual) Monocytes % (Manual) Seg Neutrophils # Seg Neutrophils # Man Lymphocytes # (Manual) Monocytes # (Manual) PT INR APTT Heparin Anti-Xa Level 0.13 L POC ABG pH POC ABG pCO2 POC ABG pO2 Sodium Potassium Chloride Carbon Dioxide BUN Creatinine Glucose POC Glucose < 40 L Lactic Acid Calcium Phosphorus Magnesium Iron TIBC AST ALT Alkaline Phosphatase Lactate Dehydrogenase Total Creatine Kinase C-Reactive Protein Total Protein Albumin Prealbumin CA 19-9 Antigen Folate PTH Intact Urine WBC (Auto) Urine Creatinine Urine Chloride Urine Total Protein Fluid Glucose Fluid Total Protein Vancomycin Trough Miscellaneous Test Crossmatch 06/23/18 06/23/18 06/24/18 23:53 Unknown 00:30 WBC RBC Hgb Hct MCV MCHC RDW Plt Count Lymph % (Auto) [place] % (Auto) Lymph # [place] # Seg Neutrophils % Seg Neuts % (Manual) Lymphocytes % (Manual) Monocytes % (Manual) Seg Neutrophils # Seg Neutrophils # Man Lymphocytes # (Manual) Monocytes # (Manual) PT INR APTT Heparin Anti-Xa Level POC ABG pH POC ABG pCO2 POC ABG pO2 Sodium 148 H Potassium Chloride Carbon Dioxide 36 H BUN 57 H Creatinine 1.9 H Glucose POC Glucose 140 H Lactic Acid Calcium 8.3 L Phosphorus Magnesium Iron TIBC AST ALT Alkaline Phosphatase Lactate Dehydrogenase Total Creatine Kinase C-Reactive Protein Total Protein Albumin Prealbumin CA 19-9 Antigen Folate PTH Intact Urine WBC (Auto) 8.0 H Urine Creatinine Urine Chloride Urine Total Protein Fluid Glucose Fluid Total Protein Vancomycin Trough Miscellaneous Test Crossmatch 06/24/18 06/24/18 06/24/18 00:40 04:30 04:30 WBC 26.9 H RBC 2.79 L Hgb 8.1 L Hct 25.0 L MCV MCHC RDW 17.5 H Plt Count 487 H Lymph % (Auto) [place] % (Auto) Lymph # [place] # Seg Neutrophils % Seg Neuts % (Manual) Lymphocytes % (Manual) 6.0 L Monocytes % (Manual) 8.0 H Seg Neutrophils # Seg Neutrophils # Man 16.9 H Lymphocytes # (Manual) Monocytes # (Manual) 2.2 H PT INR APTT Heparin Anti-Xa Level 0.13 L POC ABG pH POC ABG pCO2 POC ABG pO2 Sodium 151 H Potassium Chloride Carbon Dioxide 36 H D BUN 74 H Creatinine 2.9 H Glucose 126 H POC Glucose Lactic Acid Calcium 8.2 L Phosphorus Magnesium Iron TIBC AST ALT Alkaline Phosphatase Lactate Dehydrogenase Total Creatine Kinase C-Reactive Protein Total Protein Albumin Prealbumin CA 19-9 Antigen Folate PTH Intact Urine WBC (Auto) Urine Creatinine Urine Chloride Urine Total Protein Fluid Glucose Fluid Total Protein Vancomycin Trough Miscellaneous Test Crossmatch 06/24/18 06/24/18 06/24/18 04:33 06:41 08:00 WBC RBC Hgb Hct MCV MCHC RDW Plt Count Lymph % (Auto) [place] % (Auto) Lymph # [place] # Seg Neutrophils % Seg Neuts % (Manual) Lymphocytes % (Manual) Monocytes % (Manual) Seg Neutrophils # Seg Neutrophils # Man Lymphocytes # (Manual) Monocytes # (Manual) PT INR APTT Heparin Anti-Xa Level 0.21 L POC ABG pH 7.517 H POC ABG pCO2 50.9 H POC ABG pO2 170 H Sodium Potassium Chloride Carbon Dioxide BUN Creatinine Glucose POC Glucose 140 H Lactic Acid Calcium Phosphorus Magnesium Iron TIBC AST ALT Alkaline Phosphatase Lactate Dehydrogenase Total Creatine Kinase C-Reactive Protein Total Protein Albumin Prealbumin CA 19-9 Antigen Folate PTH Intact Urine WBC (Auto) Urine Creatinine Urine Chloride Urine Total Protein Fluid Glucose Fluid Total Protein Vancomycin Trough Miscellaneous Test Crossmatch 06/24/18 06/24/18 06/24/18 12:27 14:20 18:46 WBC RBC Hgb Hct MCV MCHC RDW Plt Count Lymph % (Auto) [place] % (Auto) Lymph # [place] # Seg Neutrophils % Seg Neuts % (Manual) Lymphocytes % (Manual) Monocytes % (Manual) Seg Neutrophils # Seg Neutrophils # Man Lymphocytes # (Manual) Monocytes # (Manual) PT INR APTT Heparin Anti-Xa Level 0.28 L POC ABG pH POC ABG pCO2 POC ABG pO2 Sodium Potassium Chloride Carbon Dioxide BUN Creatinine Glucose POC Glucose 216 H 182 H Lactic Acid Calcium Phosphorus Magnesium Iron TIBC AST ALT Alkaline Phosphatase Lactate Dehydrogenase Total Creatine Kinase C-Reactive Protein Total Protein Albumin Prealbumin CA 19-9 Antigen Folate PTH Intact Urine WBC (Auto) Urine Creatinine Urine Chloride Urine Total Protein Fluid Glucose Fluid Total Protein Vancomycin Trough Miscellaneous Test Crossmatch 06/24/18 06/25/18 06/25/18 23:43 04:29 04:37 WBC RBC Hgb 8.1 L Hct 25.6 L MCV MCHC RDW Plt Count Lymph % (Auto) [place] % (Auto) Lymph # [place] # Seg Neutrophils % Seg Neuts % (Manual) Lymphocytes % (Manual) Monocytes % (Manual) Seg Neutrophils # Seg Neutrophils # Man Lymphocytes # (Manual) Monocytes # (Manual) PT INR APTT Heparin Anti-Xa Level POC ABG pH 7.534 H POC ABG pCO2 POC ABG pO2 161 H Sodium Potassium Chloride Carbon Dioxide BUN Creatinine Glucose POC Glucose 217 H Lactic Acid Calcium Phosphorus Magnesium Iron TIBC AST ALT Alkaline Phosphatase Lactate Dehydrogenase Total Creatine Kinase C-Reactive Protein Total Protein Albumin Prealbumin CA 19-9 Antigen Folate PTH Intact Urine WBC (Auto) Urine Creatinine Urine Chloride Urine Total Protein Fluid Glucose Fluid Total Protein Vancomycin Trough Miscellaneous Test Crossmatch 06/25/18 06/25/18 06/25/18 04:37 05:48 12:11 WBC RBC Hgb Hct MCV MCHC RDW Plt Count Lymph % (Auto) [place] % (Auto) Lymph # [place] # Seg Neutrophils % Seg Neuts % (Manual) Lymphocytes % (Manual) Monocytes % (Manual) Seg Neutrophils # Seg Neutrophils # Man Lymphocytes # (Manual) Monocytes # (Manual) PT INR APTT Heparin Anti-Xa Level POC ABG pH POC ABG pCO2 POC ABG pO2 Sodium Potassium 2.6 L* D Chloride Carbon Dioxide 32 H BUN 75 H Creatinine 3.1 H Glucose 244 H POC Glucose 225 H 252 H Lactic Acid Calcium Phosphorus Magnesium Iron TIBC AST ALT Alkaline Phosphatase Lactate Dehydrogenase Total Creatine Kinase C-Reactive Protein Total Protein Albumin Prealbumin CA 19-9 Antigen Folate PTH Intact Urine WBC (Auto) Urine Creatinine Urine Chloride Urine Total Protein Fluid Glucose Fluid Total Protein Vancomycin Trough Miscellaneous Test Crossmatch 06/25/18 06/25/18 06/25/18 15:58 18:12 20:30 WBC RBC Hgb 8.5 L Hct 27.6 L MCV MCHC RDW Plt Count Lymph % (Auto) [place] % (Auto) Lymph # [place] # Seg Neutrophils % Seg Neuts % (Manual) Lymphocytes % (Manual) Monocytes % (Manual) Seg Neutrophils # Seg Neutrophils # Man Lymphocytes # (Manual) Monocytes # (Manual) PT INR APTT Heparin Anti-Xa Level POC ABG pH POC ABG pCO2 POC ABG pO2 Sodium 148 H Potassium 2.4 L* Chloride Carbon Dioxide 31 H BUN 79 H Creatinine 3.0 H Glucose 152 H POC Glucose 199 H Lactic Acid Calcium 8.3 L Phosphorus Magnesium Iron TIBC AST ALT Alkaline Phosphatase Lactate Dehydrogenase Total Creatine Kinase C-Reactive Protein Total Protein Albumin Prealbumin CA 19-9 Antigen Folate PTH Intact Urine WBC (Auto) Urine Creatinine Urine Chloride Urine Total Protein Fluid Glucose Fluid Total Protein Vancomycin Trough Miscellaneous Test Crossmatch 06/26/18 06/26/18 06/26/18 04:00 04:00 04:00 WBC 26.2 H RBC 3.16 L Hgb 9.1 L Hct 28.8 L MCV MCHC RDW 18.2 H Plt Count Lymph % (Auto) [place] % (Auto) Lymph # [place] # Seg Neutrophils % Seg Neuts % (Manual) Lymphocytes % (Manual) 2.0 L Monocytes % (Manual) Seg Neutrophils # Seg Neutrophils # Man 11.5 H Lymphocytes # (Manual) 0.5 L Monocytes # (Manual) PT INR APTT Heparin Anti-Xa Level POC ABG pH POC ABG pCO2 POC ABG pO2 Sodium 146 H Potassium 3.2 L D 3.3 L Chloride 109.0 H 108.2 H Carbon Dioxide BUN 74 H 75 H Creatinine 2.9 H 2.9 H Glucose 62 L 60 L POC Glucose Lactic Acid Calcium 7.7 L 7.9 L Phosphorus Magnesium 1.60 L Iron TIBC AST ALT Alkaline Phosphatase 173 H Lactate Dehydrogenase Total Creatine Kinase C-Reactive Protein Total Protein 6.1 L Albumin 1.4 L Prealbumin CA 19-9 Antigen Folate PTH Intact Urine WBC (Auto) Urine Creatinine Urine Chloride Urine Total Protein Fluid Glucose Fluid Total Protein Vancomycin Trough Miscellaneous Test Crossmatch 06/26/18 06/26/18 06/26/18 05:57 05:59 06:22 WBC RBC Hgb Hct MCV MCHC RDW Plt Count Lymph % (Auto) [place] % (Auto) Lymph # [place] # Seg Neutrophils % Seg Neuts % (Manual) Lymphocytes % (Manual) Monocytes % (Manual) Seg Neutrophils # Seg Neutrophils # Man Lymphocytes # (Manual) Monocytes # (Manual) PT INR APTT Heparin Anti-Xa Level POC ABG pH 7.269 L POC ABG pCO2 68.0 H POC ABG pO2 73 L Sodium Potassium Chloride Carbon Dioxide BUN Creatinine Glucose POC Glucose 59 L 130 H Lactic Acid Calcium Phosphorus Magnesium Iron TIBC AST ALT Alkaline Phosphatase Lactate Dehydrogenase Total Creatine Kinase C-Reactive Protein Total Protein Albumin Prealbumin CA 19-9 Antigen Folate PTH Intact Urine WBC (Auto) Urine Creatinine Urine Chloride Urine Total Protein Fluid Glucose Fluid Total Protein Vancomycin Trough Miscellaneous Test Crossmatch 06/27/18 06/27/18 06/27/18 03:34 05:20 05:20 WBC RBC Hgb 6.7 L Hct 21.2 L D MCV MCHC RDW Plt Count Lymph % (Auto) [place] % (Auto) Lymph # [place] # Seg Neutrophils % Seg Neuts % (Manual) Lymphocytes % (Manual) Monocytes % (Manual) Seg Neutrophils # Seg Neutrophils # Man Lymphocytes # (Manual) Monocytes # (Manual) PT INR APTT Heparin Anti-Xa Level POC ABG pH 7.251 L POC ABG pCO2 63.7 H POC ABG pO2 157 H Sodium Potassium 5.9 H D Chloride Carbon Dioxide BUN 87 H Creatinine 4.4 H D Glucose 128 H POC Glucose Lactic Acid Calcium 8.1 L Phosphorus Magnesium Iron TIBC AST ALT Alkaline Phosphatase Lactate Dehydrogenase Total Creatine Kinase C-Reactive Protein Total Protein Albumin Prealbumin CA 19-9 Antigen Folate PTH Intact Urine WBC (Auto) Urine Creatinine Urine Chloride Urine Total Protein Fluid Glucose Fluid Total Protein Vancomycin Trough Miscellaneous Test Crossmatch 06/27/18 06/27/18 06/27/18 09:05 10:56 10:56 WBC RBC Hgb 6.9 L Hct 21.6 L MCV MCHC RDW Plt Count Lymph % (Auto) [place] % (Auto) Lymph # [place] # Seg Neutrophils % Seg Neuts % (Manual) Lymphocytes % (Manual) Monocytes % (Manual) Seg Neutrophils # Seg Neutrophils # Man Lymphocytes # (Manual) Monocytes # (Manual) PT INR APTT Heparin Anti-Xa Level POC ABG pH POC ABG pCO2 POC ABG pO2 Sodium Potassium 5.7 H Chloride Carbon Dioxide BUN Creatinine Glucose POC Glucose Lactic Acid Calcium Phosphorus Magnesium Iron TIBC AST ALT Alkaline Phosphatase Lactate Dehydrogenase Total Creatine Kinase C-Reactive Protein Total Protein Albumin Prealbumin CA 19-9 Antigen Folate PTH Intact Urine WBC (Auto) Urine Creatinine Urine Chloride Urine Total Protein Fluid Glucose Fluid Total Protein Vancomycin Trough Miscellaneous Test Crossmatch See Detail 10/15/18 10/15/18 10/15/18 10:56 12:07 17:33 WBC 25.2 H RBC 2.37 L Hgb 6.7 L Hct 21.6 L MCV MCHC 31 L RDW 18.0 H Plt Count Lymph % (Auto) [place] % (Auto) Lymph # [place] # Seg Neutrophils % Seg Neuts % (Manual) 97.0 H Lymphocytes % (Manual) 1.0 L Monocytes % (Manual) Seg Neutrophils # Seg Neutrophils # Man 24.4 H Lymphocytes # (Manual) 0.3 L Monocytes # (Manual) PT INR APTT Heparin Anti-Xa Level POC ABG pH POC ABG pCO2 POC ABG pO2 Sodium Potassium Chloride Carbon Dioxide BUN Creatinine Glucose POC Glucose 156 H 123 H Lactic Acid Calcium Phosphorus Magnesium Iron TIBC AST ALT Alkaline Phosphatase Lactate Dehydrogenase Total Creatine Kinase C-Reactive Protein Total Protein Albumin Prealbumin CA 19-9 Antigen Folate PTH Intact Urine WBC (Auto) Urine Creatinine Urine Chloride Urine Total Protein Fluid Glucose Fluid Total Protein Vancomycin Trough Miscellaneous Test Crossmatch 06/28/18 06/28/18 06/28/18 00:40 04:54 05:52 WBC RBC Hgb Hct MCV MCHC RDW Plt Count Lymph % (Auto) [place] % (Auto) Lymph # [place] # Seg Neutrophils % Seg Neuts % (Manual) Lymphocytes % (Manual) Monocytes % (Manual) Seg Neutrophils # Seg Neutrophils # Man Lymphocytes # (Manual) Monocytes # (Manual) PT INR APTT Heparin Anti-Xa Level POC ABG pH POC ABG pCO2 POC ABG pO2 Sodium Potassium Chloride Carbon Dioxide BUN 57 H Creatinine 3.3 H Glucose 107 H POC Glucose 127 H 117 H Lactic Acid Calcium Phosphorus Magnesium Iron TIBC AST ALT Alkaline Phosphatase Lactate Dehydrogenase Total Creatine Kinase C-Reactive Protein Total Protein Albumin Prealbumin CA 19-9 Antigen Folate PTH Intact Urine WBC (Auto) Urine Creatinine Urine Chloride Urine Total Protein Fluid Glucose Fluid Total Protein Vancomycin Trough Miscellaneous Test Crossmatch 06/28/18 06/29/18 06/29/18 09:24 04:18 04:18 WBC 21.3 H RBC 2.61 L Hgb 7.5 L 7.6 L Hct 23.0 L 23.1 L MCV MCHC RDW 17.5 H Plt Count Lymph % (Auto) [place] % (Auto) Lymph # [place] # Seg Neutrophils % Seg Neuts % (Manual) Lymphocytes % (Manual) Monocytes % (Manual) Seg Neutrophils # Seg Neutrophils # Man Lymphocytes # (Manual) Monocytes # (Manual) PT INR APTT Heparin Anti-Xa Level POC ABG pH POC ABG pCO2 POC ABG pO2 Sodium 136 L Potassium Chloride Carbon Dioxide BUN 69 H Creatinine 3.8 H Glucose POC Glucose Lactic Acid Calcium Phosphorus 5.10 H D Magnesium Iron TIBC AST ALT Alkaline Phosphatase Lactate Dehydrogenase Total Creatine Kinase C-Reactive Protein Total Protein Albumin Prealbumin CA 19-9 Antigen Folate PTH Intact Urine WBC (Auto) Urine Creatinine Urine Chloride Urine Total Protein Fluid Glucose Fluid Total Protein Vancomycin Trough Miscellaneous Test Crossmatch 06/29/18 06/30/18 04:28 04:02 WBC RBC Hgb Hct MCV MCHC RDW Plt Count Lymph % (Auto) [place] % (Auto) Lymph # [place] # Seg Neutrophils % Seg Neuts % (Manual) Lymphocytes % (Manual) Monocytes % (Manual) Seg Neutrophils # Seg Neutrophils # Man Lymphocytes # (Manual) Monocytes # (Manual) PT INR APTT Heparin Anti-Xa Level POC ABG pH POC ABG pCO2 46.9 H POC ABG pO2 Sodium Potassium Chloride Carbon Dioxide BUN 78 H Creatinine 3.8 H Glucose POC Glucose Lactic Acid Calcium Phosphorus 5.20 H Magnesium Iron TIBC AST ALT Alkaline Phosphatase Lactate Dehydrogenase Total Creatine Kinase C-Reactive Protein Total Protein Albumin Prealbumin CA 19-9 Antigen Folate PTH Intact Urine WBC (Auto) Urine Creatinine Urine Chloride Urine Total Protein Fluid Glucose Fluid Total Protein Vancomycin Trough Miscellaneous Test Crossmatch Allied health notes reviewed: nursing
[2018-06-30] MEDS: FERROUS SULFATE PO SCH (11:42)
[2018-06-30] MEDS: FOLVITE PO SCH (11:43)
--- NOTE | 2018-06-30 11:52 | Death Summary ---
Summary - Providers Date of service: 06/30/18 Consults: 05/13/18 10:53 Consult to Physician [CONS] Routine Comment: OFFICE NOTIFIED TYLER [id number] Consulting Provider: MARCELLO SCHWARTZ Physician Instructions: Reason For Exam: MARYLOU 05/14/18 11:12 Consult to Physician [CONS] Routine Comment: Consulting Provider: KATERINA SILVA Physician Instructions: Reason For Exam: Bilateal Hydronephrosis. 05/17/18 13:50 Consult to Physician [CONS] Routine Comment: Consulting Provider: TONIO CARRILLO Physician Instructions: Reason For Exam: pelvic mass 05/21/18 17:08 Consult to Physician [CONS] Routine Comment: Consulting Provider: MICHOACANO ESPINOZA Physician Instructions: Reason For Exam: SBO 05/22/18 12:21 Consult to Physician [CONS] Routine Comment: Consulting Provider: HANNAH SHIPLEY Physician Instructions: Reason For Exam: possible colon mass 05/23/18 12:00 Consult to Dietitian/Nutrition [CONS] Routine Physician Instructions: Reason For Exam: Reason for Consult: Write/Manage TPN/PPN 05/25/18 15:28 Consult to Physician [CONS] Routine Comment: Consulting Provider: TAM BEE Physician Instructions: Reason For Exam: Acute resp failure, sepsis, MARYLOU, cancer 05/26/18 10:39 Consult to Physician [CONS] Routine Comment: Consulting Provider: SUGEY CHI Physician Instructions: Reason For Exam: Leukocytosis, Fever, possible Sepsis 05/27/18 15:18 Consult to Wound/ET Nurse [CONS] Urgent Reason For Exam: New colostomy 05/31/18 14:59 Physical Therapy Evaluation and Treat [CONS] Routine Comment: Reason For Exam: deconditioning, critical illness 06/01/18 18:11 Consult to Physician [CONS] Routine Comment: Consulting Provider: TIM ARGUELLO Physician Instructions: Reason For Exam: Paracentesis, abdominal distention, ascites 06/01/18 18:37 Consult to Physician [CONS] Routine Comment: Consulting Provider: BENTLEY RICHARDSON Physician Instructions: Reason For Exam: abdominal ascites, paracentesis 06/06/18 09:56 Consult to Physician [CONS] Routine Comment: Davol drain dislodged over night. 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 Please fax results to [phone] and call [phone] for critical lab results. Britney Auguste NP/Sugey Pacheco MD Date: 06/07/18 06/17/18 10:17 PICC Line Placement [Consult to PICC Line RN] [CONS] Urgent Reason For Exam: picc line placement patient on TPN Type Line:: PICC 06/17/18 10:19 PICC Line Insertion [Consult to PICC Line RN] [CONS] Stat Reason For Exam: Line pull out by patient Type Line:: PICC 06/24/18 09:02 Consult to Physician [CONS] Routine Comment: Consulting Provider: MOISÉS YE Physician Instructions: Reason For Exam: altered mental status, post cardiac arrest 06/24/18 10:47 Consult to Physician [CONS] Routine Comment: Consulting Provider: SUGEY CHI Physician Instructions: Reason For Exam: worsening leukocytosis, post cardiopulmonary arres 06/25/18 10:08 Consult to Physician [CONS] Routine Comment: Consulting Provider: YANNI MELENDREZ Physician Instructions: Reason For Exam: Anoxic encephalopathy, post cardiac arrest 06/27/18 10:06 Physical Therapy Evaluation and Treat [CONS] Routine Comment: Reason For Exam: evaluate and treat please. Thank you Attending: NILAM ODONNELL - summary Date of admission: 05/13/18 10:36 Date of : 06/29/18 Reason for admission: Swelling of legs, no urinary output Procedures/treatments rendered: Brief History: 53 y/o male admitted with c/o abd pain and urinary retention. CT abdomen showed Large pelvic mass causing urinary obstruction. Bilateral nephrostomy tubes were placed by IR. Repeat CT showed dilated small bowel with SBO, possibly from extrinsic compression from pelvic mass. He is s/p exploratory laparotomy and colostomy placed on 05/26/18 by . He required HD intermittently for declining renal function and hyperkalemia. He was planned to go for LTAC with close outpt followup with oncology. On 06/23/18 he developed respiratory distress followed by cardiaorespiratory arrest and required intubation. He was transferred to ICU and remained unresponsive since then. He was evaluated by cerebral blood flow and EEG study. Clinically appeared as severe anoxic brain injury/brain . Updated sister multiple times at bedside /by phone. Neurology further examined the pt clinically and confirmed brain on 06/29/18. Family wanted to be bedside for extubation. They all gathered at bedside today and respiratory therapy disconnected the patient from Vent. Cause of : Severe anoxic brain Working diagnosis: /Anoxic brain Patient evaluated by Neuologist, Dr. Ye and she discussed with patient's sister on 06/24/18 patient remained unresponsive post prolonged cardiorespiratory arrest Consulted Dr. Melendrez, Neurology for 2nd opinion. He evaluated patient and also discussed with sister on 06/25/18 Cerebral blood flow study showed minimal flow and EEG showed no brain activity Updated sister by phone, pronounced brain on 06/29/[address] Melendrez and he called the sister for update on same day /s/p cardiorespiratory arrest. Cannot r/o aspiration event vs acute PE to worsen respiratory status leading to cardiorespiratory arrest on 06/23/18 Also initiated on heparin drip for possible PE as he had DVT right lower ext but was not on anticoagulation because of nephrostomy tubes, major abdominal surgery and anemia required transfusion. Manged with vent till family arrived for extubation. 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 -Differentiated carcinoma with squamous differentiation on pathology but unsure of exact primary /Bilateral pneumonia (possibly aspiration) -treated with abx /Bilateral moderate pleural effusion, had thoracentesis /Cardiogenic shock Patient was hypotensive post cardio-respiratory arrest. Started on Levophed as needed for BP control following arrest /Sepsis, was on Antibiotics, completed /Acute kidney injury (obstructive uropathy followed by contrast nephropathy) -Was hemodialysis temporarily/intermittently. -Had bilateral nephrostomy tubes placed 05/14/[address] Pete. /Hyperkalemia, resolved /Anemia, s/p 6 units of PRBC transfusion so far /Acute deep venous thrombosis, was off AC for low h/h, then resumed again for possible PE /Bowel obstruction s/p surgery -Etiology secondary to extrinsic compression from mass, placed on TPN /Moderate to severe protein calorie malnutrition, placed on TPN Disposition: Plan was for him to go to LTAC prior to cardiorespiratory arrest. Now he is brain . Discussed with sister, Vibha Dinh in details..
[2018-07-24] MEDS ORDERED: ADRENALIN ONE (12:09)
[2018-07-24] MEDS ORDERED: SODIUM BICARBONATE IV ONE (12:09)
== END 2018-06-30 13:45 | DRG 329 ==
LOC: ED 04:04 → 4A 10:36 → 3A 19:05 → IMCU 05-25 21:03 → CC1 05-26 01:08 → 4A 06-02 22:40 → 3A 06-21 14:51 → CC1 06-23 08:22
PROVIDERS: ADMIT Internal Medicine; ATTEND Internal Medicine
PROC: BT03ZZZ Plain Radiography of Bilateral Kidneys (ICD-10-PCS; 2018-05-14)
PROC: 0T9430Z Drainage of Left Kidney Pelvis with Drainage Device, Percutaneous Approach (ICD-10-PCS; 2018-05-14)
PROC: 0T9330Z Drainage of Right Kidney Pelvis with Drainage Device, Percutaneous Approach (ICD-10-PCS; 2018-05-14)
PROC: 0VB08ZX Excision of Prostate, Via Natural or Artificial Opening Endoscopic, Diagnostic (ICD-10-PCS; 2018-05-18)
PROC: 0VB08ZX Excision of Prostate, Via Natural or Artificial Opening Endoscopic, Diagnostic (ICD-10-PCS; 2018-05-18)
PROC: BT1D1ZZ Fluoroscopy of Right Kidney, Ureter and Bladder using Low Osmolar Contrast (ICD-10-PCS; 2018-05-18)
PROC: 30233N1 Transfusion of Nonautologous Red Blood Cells into Peripheral Vein, Percutaneous Approach (ICD-10-PCS; 2018-05-22)
PROC: 3E0436Z Introduction of Nutritional Substance into Central Vein, Percutaneous Approach (ICD-10-PCS; 2018-05-24)
PROC: 5A09357 Assistance with Respiratory Ventilation, Less than 24 Consecutive Hours, Continuous Positive Airway Pressure (ICD-10-PCS; 2018-05-24)
PROC: 0DJD8ZZ Inspection of Lower Intestinal Tract, Via Natural or Artificial Opening Endoscopic (ICD-10-PCS; 2018-05-25)
PROC: 4A033R1 Measurement of Arterial Saturation, Peripheral, Percutaneous Approach (ICD-10-PCS; 2018-05-25)
PROC: 5A09357 Assistance with Respiratory Ventilation, Less than 24 Consecutive Hours, Continuous Positive Airway Pressure (ICD-10-PCS; 2018-05-25)
PROC: 0D1L0Z4 Bypass Transverse Colon to Cutaneous, Open Approach (ICD-10-PCS; principal; 2018-05-26)
PROC: 5A09357 Assistance with Respiratory Ventilation, Less than 24 Consecutive Hours, Continuous Positive Airway Pressure (ICD-10-PCS; 2018-05-26)
PROC: 5A1D70Z Performance of Urinary Filtration, Intermittent, Less than 6 Hours Per Day (ICD-10-PCS; 2018-05-27)
PROC: 02HV33Z Insertion of Infusion Device into Superior Vena Cava, Percutaneous Approach (ICD-10-PCS; 2018-05-27)
PROC: B548ZZA Ultrasonography of Superior Vena Cava, Guidance (ICD-10-PCS; 2018-05-27)
PROC: 5A1D70Z Performance of Urinary Filtration, Intermittent, Less than 6 Hours Per Day (ICD-10-PCS; 2018-05-28)
PROC: 5A1D70Z Performance of Urinary Filtration, Intermittent, Less than 6 Hours Per Day (ICD-10-PCS; 2018-05-30)
PROC: 5A1D70Z Performance of Urinary Filtration, Intermittent, Less than 6 Hours Per Day (ICD-10-PCS; 2018-05-31)
PROC: 5A1955Z Respiratory Ventilation, Greater than 96 Consecutive Hours (ICD-10-PCS; 2018-05-31)
PROC: 0BH17EZ Insertion of Endotracheal Airway into Trachea, Via Natural or Artificial Opening (ICD-10-PCS; 2018-05-31)
PROC: 5A09357 Assistance with Respiratory Ventilation, Less than 24 Consecutive Hours, Continuous Positive Airway Pressure (ICD-10-PCS; 2018-06-01)
PROC: 5A1D70Z Performance of Urinary Filtration, Intermittent, Less than 6 Hours Per Day (ICD-10-PCS; 2018-06-02)
PROC: 5A09357 Assistance with Respiratory Ventilation, Less than 24 Consecutive Hours, Continuous Positive Airway Pressure (ICD-10-PCS; 2018-06-02)
PROC: 0W9G3ZZ Drainage of Peritoneal Cavity, Percutaneous Approach (ICD-10-PCS; 2018-06-03)
PROC: 5A09357 Assistance with Respiratory Ventilation, Less than 24 Consecutive Hours, Continuous Positive Airway Pressure (ICD-10-PCS; 2018-06-03)
PROC: 5A09357 Assistance with Respiratory Ventilation, Less than 24 Consecutive Hours, Continuous Positive Airway Pressure (ICD-10-PCS; 2018-06-04)
PROC: 5A09357 Assistance with Respiratory Ventilation, Less than 24 Consecutive Hours, Continuous Positive Airway Pressure (ICD-10-PCS; 2018-06-05)
PROC: 0W9G3ZZ Drainage of Peritoneal Cavity, Percutaneous Approach (ICD-10-PCS; 2018-06-07)
PROC: 0W993ZZ Drainage of Right Pleural Cavity, Percutaneous Approach (ICD-10-PCS; 2018-06-14)
PROC: 5A12012 Performance of Cardiac Output, Single, Manual (ICD-10-PCS; 2018-06-23)
PROC: 5A1955Z Respiratory Ventilation, Greater than 96 Consecutive Hours (ICD-10-PCS; 2018-06-23)
PROC: 0BH17EZ Insertion of Endotracheal Airway into Trachea, Via Natural or Artificial Opening (ICD-10-PCS; 2018-06-23)
PROC: 02HV33Z Insertion of Infusion Device into Superior Vena Cava, Percutaneous Approach (ICD-10-PCS; 2018-06-24)
PROC: B548ZZA Ultrasonography of Superior Vena Cava, Guidance (ICD-10-PCS; 2018-06-24)
DX: K56.609 Unspecified intestinal obstruction, unspecified as to partial versus complete obstruction (principal); A41.9 Sepsis, unspecified organism; J69.0 Pneumonitis due to inhalation of food and vomit; E43 Unspecified severe protein-calorie malnutrition; N17.0 Acute kidney failure with tubular necrosis; J96.01 Acute respiratory failure with hypoxia; K65.9 Peritonitis, unspecified; G92 Toxic encephalopathy; J96.02 Acute respiratory failure with hypercapnia; I82.409 Acute embolism and thrombosis of unspecified deep veins of unspecified lower extremity; E87.1 Hypo-osmolality and hyponatremia; Z68.1 Body mass index [BMI] 19.9 or less, adult; D62 Acute posthemorrhagic anemia; I82.491 Acute embolism and thrombosis of other specified deep vein of right lower extremity; I82.812 Embolism and thrombosis of superficial veins of left lower extremity; I82.431 Acute embolism and thrombosis of right popliteal vein; I82.411 Acute embolism and thrombosis of right femoral vein; K62.6 Ulcer of anus and rectum; J90 Pleural effusion, not elsewhere classified; E87.0 Hyperosmolality and hypernatremia; R18.8 Other ascites; N13.8 Other obstructive and reflux uropathy; G93.1 Anoxic brain damage, not elsewhere classified; N13.6 Pyonephrosis; C76.3 Malignant neoplasm of pelvis; C67.9 Malignant neoplasm of bladder, unspecified; I16.0 Hypertensive urgency; F17.210 Nicotine dependence, cigarettes, uncomplicated; E87.5 Hyperkalemia; J45.909 Unspecified asthma, uncomplicated; E87.6 Hypokalemia; R33.9 Retention of urine, unspecified; I46.9 Cardiac arrest, cause unspecified
CPT/HCPCS: 10160; 31500; 32555; 36415; 36600; 49083; 50432; 71045; 71046; 71250; 71275; 74018; 74022; 74176; 74250; 74420; 76604; 76705; 76770; 76872; 76937; 77012; 78601; 80048; 80053; 80074; 80202; 80307; 81001; 82040; 82140; 82150; 82270; 82436; 82550; 82553; 82570; 82607; 82728; 82747; 82803; 82947; 82962; 83036; 83550; 83605; 83615; 83735; 83970; 84100; 84132; 84133; 84134; 84153; 84154; 84156; 84160; 84300; 84443; 84478; 85007; 85014; 85018; 85025; 85027; 85049; 85520; 85610; 85730; 86021; 86038; 86140; 86160; 86301; 86850; 86900; 86901; 86920; 87040; 87070; 87075; 87076; 87086; 87116; 87186; 87205; 88112; 88305; 88341; 88342; 89051; 93005; 93010; 93306; 93970; 94002; 94003; 94640; 94660; 94760; 95819; 96361; 96374; 96375; 99291; A6250; A9512; C1729; C1758; C1769; J0171; J0330; J0360; J0610; J0692; J0885; J1100; J1170; J1644; J1650; J1815; J1940; J1956; J2020; J2060; J2250; J2270; J2370; J2405; J2543; J2597; J2704; J3010; J3370; J3475; J3480; J7030; J7040; J7042; J7050; J7070; J7120; P9016; Q9963; Q9967; Q9968